=== PATIENT | female | born 1940 | race Caucasian/White ===

== ENCOUNTER → 2018-03-12 17:36 | Outpatient (CLI) | payer MEDICARE, OTHER, SELFPAY | PROVIDERS: Visit Provider Nurse Practitioner Adult Health | DX: R82.99 Other abnormal findings in urine (principal) | CPT/HCPCS: 87077; 87086; 87088; 87186 ==

== ENCOUNTER → 2018-09-17 07:58 | Outpatient (CLI) | payer MEDICARE, OTHER, SELFPAY ==
[2018-08-28 07:45] VITALS: BMI 24.8
--- NOTE | 2018-09-17 07:59 | ECHOCS_ITS ---
Reason For Study: Dyspnea/SOB Procedure This was a 2D Doppler, Color Flow transthoracic echocardiogram. Exam performed in department. Left Ventricle Normal size and thickness. The estimated ejection fraction is 65 %. Stage 1 diastolic dysfunction. No regional wall motion abnormalities noted. Right Ventricle Normal size and thickness. A moderator band is seen in the right ventricle. Normal systolic function. Atria Normal left atrium. Normal right atrium. Normal atrial septum. Mitral Valve The mitral valve is structurally normal. No prolapse or stenosis seen. Tricuspid Valve Normal tricuspid valve. Trivial tricuspid valve insufficiency. Right ventricular systolic pressure estimated to be 25 mmHg. Aortic Valve Trisinus/trileaflet aortic valve. Normal aortic valve. Pulmonic Valve Normal pulmonic valve. Mild (1+) pulmonic valve insufficiency. Great Vessels Normal aortic root. Normal arch. Normal inferior vena cava. Inferior vena cava collapse with sniff. Pericardium/Pleural No pericardial effusion. Medication 22 gauge I.V. with prn adaptor inserted into right arm. Diluted definity 3ml given slow IV push to enhance endocardial definition. MMode/2D Measurements & Calculations LVIDd: 4.2 cm IVSd: 0.74 cm Ao root diam: 3.1 cm LVIDs: 2.3 cm LVPWd: 0.71 cm LA dimension: 3.2 cm RVDd: 2.8 cm FS: 44.2 % LAV(MOD-bp): 33.9 ml LA A4 area: 14.7 cm2 RA A4 area: 10.5 cm2 LAV(MOD-bp) Indexed: 21.0 ml/m2 LAV(MOD-sp2): 29.0 ml LAV(MOD-sp4): 33.1 ml Time Measurements MV dec time: 0.27 sec Doppler Measurements & Calculations MV E max arun: 64.7 cm/sec Lat Peak E' Arun: 6.5 cm/sec Med Peak E' Arun: 9.0 cm/sec MV A max arun: 97.5 cm/sec E/E' lat: 10.0 E/E' med: 7.2 MV E/A: 0.66 MV V2 max: 113.2 cm/sec MV P1/2t max arun: 84.1 cm/sec Ao V2 max: 112.6 cm/sec MV max P.1 mmHg MV P1/2t: 84.4 msec Ao max P.1 mmHg MV V2 mean: 57.9 cm/sec MV dec slope: 291.9 cm/sec2 Ao V2 mean: 71.2 cm/sec MV mean P.6 mmHg Ao mean P.4 mmHg MV V2 VTI: 32.6 cm MVA(P1/2t): 2.6 cm2 Ao V2 VTI: 23.7 cm LV V1 max: 101.4 cm/sec PA V2 max: 78.0 cm/sec PI dec slope: 200.6 cm/sec2 LV V1 max P.1 mmHg LV V1 mean P.7 mmHg LV V1 mean: 60.0 cm/sec LV V1 VTI: 22.1 cm TR max arun: 221.7 cm/sec TR max P.7 mmHg Interpretation Summary The estimated ejection fraction is 65 %. Stage 1 diastolic dysfunction. Trivial tricuspid valve insufficiency. Right ventricular systolic pressure estimated to be 25 mmHg. Mild (1+) pulmonic valve insufficiency. Compared to echo report dated 03/13/2017, no appreciable changes noted. The study was technically difficult. Contrast injection was performed. Ordering Physician: Reji Bran Referring Physician: Emily Yun M.D. Performed By: Keenan Mckeon RCS
--- NOTE | 2018-09-17 12:26 | PFTCOMP ---
COMPLETE PULMONARY FUNCTION TEST INTERPRETATION Brief HPI: Patient is a 78 year old female, currently under the care of myself, who presents to [facility] for complete pulmonary function tests secondary to diagnosis of dyspnea. Respiratory therapist reports good effort and reproducible results. Interpretation: Forced expiration spirometry shows a mild large airways obstructive ventilatory defect with an FEV1 of 71% predicted. There is no significant bronchodilator response by strict ATS criteria. Spirograms are of good quality and plateau slowly, indicating slowly emptying areas of the lungs. The respiratory flow volume loop shows decreased expiratory flow rates at all lung volumes consistent with airway obstruction. Lung volumes by body plethysmography show a normal total lung capacity at 3.87 L, 89% predicted. All other lung volumes are within normal limits. Diffusion capacity by carbon monoxide is at the lower limit of normal at 64% predicted. The airway resistance is elevated. No previous pulmonary function tests were available for review. Impression: Irreversible mild large airways obstructive ventilatory defect with a symmetric reduction diffusing capacity consistent with a diagnosis of COPD. Lung volumes are relatively preserved despite history of lobectomy.
--- NOTE | 2018-09-17 12:29 | PFTCOMP_ITS ---
COMPLETE PULMONARY FUNCTION TEST INTERPRETATION Brief HPI: Patient is a 78 year old female, currently under the care of myself, who presents to [facility] for complete pulmonary function tests secondary to diagnosis of dyspnea. Respiratory therapist reports good effort and reproducible results. Interpretation: Forced expiration spirometry shows a mild large airways obstructive ventilatory defect with an FEV1 of 71% predicted. There is no significant bronchodilator response by strict ATS criteria. Spirograms are of good quality and plateau slowly, indicating slowly emptying areas of the lungs. The respiratory flow volume loop shows decreased expiratory flow rates at all lung volumes consistent with airway obstruction. Lung volumes by body plethysmography show a normal total lung capacity at 3.87 L, 89% predicted. All other lung volumes are within normal limits. Diffusion capacity by carbon monoxide is at the lower limit of normal at 64% predicted. The airway resistance is elevated. No previous pulmonary function tests were available for review. Impression: Irreversible mild large airways obstructive ventilatory defect with a symmetric reduction diffusing capacity consistent with a diagnosis of COPD. Lung volumes are relatively preserved despite history of lobectomy.
== END ==
PROVIDERS: Family Provider Internal Medicine; PCP Internal Medicine; Referring Provider Internal Medicine Critical Care Medicine; Visit Provider Internal Medicine Critical Care Medicine
DX: R06.00 Dyspnea, unspecified (principal); R06.02 Shortness of breath
CPT/HCPCS: 93306; 94060; 94726; 94729; Q9957; A4216; C8929

== ENCOUNTER → 2018-09-19 13:04 | Outpatient (CLI) | payer MEDICARE, OTHER, SELFPAY ==
[2018-08-28 07:45] VITALS: BMI 24.8
--- NOTE | 2018-09-19 13:06 | CT_ITS ---
STUDY: CT CHEST WITHOUT CONTRAST REASON FOR EXAM: Female, 78 years old. History of left upper lobectomy for lung cancer. Cough. RADIATION DOSAGE (If Supplied By Facility): CTDIvol = ( 9.72 ) mGy, DLP = ( 347.31 ) mGycm TECHNIQUE: Transaxial imaging was performed without the administration of intravenous contrast material. Individualized dose optimization techniques were used for this CT. COMPARISON: None. FINDINGS: There is mild loss of volume of the left lung consistent with previous lobectomy. There is mild stranding in the left lower lobe probably due to scarring. There there are calcified granulomas in the right upper and middle lobes. There is a 3 mm pleural-based nodule in the lingula on image 77 series 4. There is mild right apical stranding/scarring and pleural fibrotic changes. Mild bronchiectatic changes bilaterally are seen. There is no demonstrated pleural effusions. Normal heart and pericardium. There are calcifications of the coronary arteries. Normal mediastinum. Normal hilar regions. Normal unenhanced pulmonary arteries. There is atherosclerotic calcification of the aortic arch with tortuosity and elongation of the aortic arch and descending thoracic aorta. There is increased kyphosis of the thoracic spine and mild degenerative changes. The visualized portions of the upper abdomen demonstrate calcified granulomata in the spleen. There is probably small hiatal hernia. CT/Chest without Contrast IMPRESSION: 1. Status post left upper lobectomy. 2. Mild loss of volume and scarring in the left lung. 3. Residuals of old edematous disease. 4. No focal infiltrate is seen. 5. 3 mm noncalcified nodule in the lingula for which a follow-up exam in 6 months to a year is recommended due to patient's history of personal cancer. Electronically Signed: Lamont Bernal MD at 12:52 EST Tel , Service support ,
== END ==
PROVIDERS: Family Provider Internal Medicine; PCP Internal Medicine; Referring Provider Internal Medicine Critical Care Medicine; Visit Provider Internal Medicine Critical Care Medicine
DX: R06.00 Dyspnea, unspecified (principal); C7A.090 Malignant carcinoid tumor of the bronchus and lung; Z90.2 Acquired absence of lung [part of]
CPT/HCPCS: 71250

== ENCOUNTER → 2018-09-23 12:22 | Outpatient (CLI) | payer MEDICARE, OTHER, SELFPAY ==
[2018-09-23 10:16] VITALS: BMI 24.8
== END ==
PROVIDERS: Family Provider Internal Medicine; PCP Internal Medicine; Referring Provider Internal Medicine Critical Care Medicine; Visit Provider Internal Medicine Critical Care Medicine
DX: J47.9 Bronchiectasis, uncomplicated (principal)
CPT/HCPCS: 94667

== ENCOUNTER → 2019-03-12 11:49 | Outpatient (CLI) | payer MEDICARE, OTHER, SELFPAY ==
[2018-09-23 10:16] VITALS: BMI 24.8
== END ==
PROVIDERS: Family Provider Internal Medicine; PCP Internal Medicine
DX: N39.0 Urinary tract infection, site not specified (principal)
CPT/HCPCS: 87077; 87086; 87088; 87186

== ENCOUNTER → 2019-03-18 14:48 | Outpatient (CLI) | payer MEDICARE, OTHER, SELFPAY ==
[2018-09-23 10:16] VITALS: BMI 24.8
[2019-03-17 10:08] VITALS: BMI 24.3
--- NOTE | 2019-03-18 14:52 | CT_ITS ---
STUDY: CT ABDOMEN AND PELVIS WITH AND WITHOUT CONTRAST REASON FOR EXAM: Female, 78 years old. Microhematuria RADIATION DOSAGE (If Supplied By Facility): CTDIvol = ( 11.86 ) mGy, DLP = ( 1158.09 ) mGycm TECHNIQUE: Transaxial images were obtained from the dome of the diaphragm to the symphysis pubis without oral contrast. 100ML IV Isovue 300 was administered. Sagittal and coronal images were reconstructed. Individualized dose optimization techniques were used for this CT. COMPARISON: None. FINDINGS: The visualized lung bases are unremarkable. The visualized portions of the heart are within normal limits. There is decreased attenuation of the liver consistent with steatosis. Normal gallbladder and extrahepatic biliary system. Normal spleen. Normal pancreas. Normal bilateral adrenal glands. Normal right kidney. Normal left kidney. Normal visualized stomach. Normal small intestine. Retained stool noted in the colon. The appendix is visualized and appears normal. Appendix best seen on coronal recon images 48 and 49. There is diffuse atherosclerotic calcification of the abdominal aorta, without a demonstrated aneurysm. Normal inferior vena cava. Normal retroperitoneum. There is nonspecific bladder thickening with subtle enhancement suggesting cystitis. Uterus is still present, the endometrium cannot be accurately evaluated with CT. No suspicious cystic mass or free fluid Normal abdominal wall. There are diffuse degenerative changes of the visualized lumbar spine, and pelvis. CT/CT Abd/Pelvis W/WO Contrast IMPRESSION: Diffuse submucosal thickening of the bladder with enhancement of the bladder wall suggests cystitis. Consider cystoscopy for further evaluation Uterus is still present, the endometrium cannot be accurately evaluated with CT Fatty liver No free intraperitoneal fluid, air, or suspicious adenopathy Electronically Signed: Jonathan Sifuentes MD at 16:23 EDT , Service support ,
[2019-03-18 15:16] LABS: CREATININE FINGERSTICK 0.8 mg/dL (0.55-1.02); EGFR FINGERSTICK > 60.0000 mL/min (>60)
== END ==
PROVIDERS: Family Provider Internal Medicine; PCP Internal Medicine; Referring Provider Nurse Practitioner Adult Health; Visit Provider Nurse Practitioner Adult Health
DX: R31.29 Other microscopic hematuria (principal)
CPT/HCPCS: 74178; Q9967

== ENCOUNTER 2019-04-18 10:09 | Day surgery (SDC) | payer MEDICARE, OTHER, SELFPAY ==
[2019-03-17 10:08] VITALS: BMI 24.3
[2019-04-18] VITALS (12 sets, daily range): BP systolic 112–192; BP diastolic 48–91; PULSE 64–88; RESP 16–18; TEMP 36.1–37.4; O2SAT 95–100; BMI 24.4
[2019-04-18] MEDS: Lactated Ringers 1,000 ML 75 ML IV ×2 (10:46→13:41)
[2019-04-18 10:56] LABS: Bedside Glucose 194 mg/dL (70-110)
--- NOTE | 2019-04-18 12:00 | BLA_PTH ---
PATIENT: CHRISTINA IVORY LOC: [facility] [place] [facility] [place] U[place][id number] AGE/SX: 78/F ROOM: RE04/18/[address]: Dr. Piotr Aponte MD : [id number] BED: DIS: 04/18/2019 SPEC #: [id number] RECD: 04/18/19 13:43 STATUS: POLLO REQ #: [id number] JACQUELINE: 04/18/19 12:[address]: Piotr Aponte DEPT: SURGICAL PATHOLOGY RECD BY: Moiz Gong ENTERED: 04/18/19 13:58 SP TYPE: BLADDER BX OTHR DR: Dr. Emily Yun MD Tissues: Urinary bladder, NOS Procedures: Surgery Specimen Level IV HEADER OPERATION: Cystoscopy, bladder hydrodistention, bladder biopsy PRE-OP DIAGNOSIS: Interstitial cystitis TISSUE SUBMITTED: Bladder MICROSCOPIC DIAGNOSIS Urinary bladder, biopsy: Chronic follicular cystitis. AM:kary 04/21/19 MICROSCOPIC DESCRIPTION Slides are reviewed. GROSS DESCRIPTION Received in fixative is one container labeled with the patient's name and designated bladder. The specimen consists of one irregular fragment of light warren soft tissue that measures 0.2 x 0.1 x 0.1 cm. The specimen is totally submitted in one cassette. / SJ:kary 04/18/19 TC:3 CPT: 00560
[2019-04-18] MEDS: Cefazolin 2 GM in 0.9% Normal Saline 100 ML IV (12:09)
--- NOTE | 2019-04-18 12:25 | DCINST_ITS ---
Discharge Diet: Light diet - advance as tolerated Discharge Activity: Return to Normal Activity Call your doctor if your incision/area has: Continuous Slow Oozing, Sudden Increased Bleeding, Increased Pain/ Swelling, Increased Redness, Foul Smelling Discharge, Swelling at the incision site Allergies/Adverse Reactions: Allergies adhesive tape Allergy (Verified 04/18/19 10:21) Hives/Rash ciprofloxacin [From Cipro] Allergy (Verified 04/18/19 10:21) Photosensitivity & dermatitis pioglitazone [From Actos] Allergy (Verified 04/18/19 10:21) Unknown codeine Adverse Reaction (Verified 04/18/19 10:21) Upset Stomach ibandronate sodium [From Boniva] Adverse Reaction (Verified 04/18/19 10:21) GI upset/esophageal burning ibuprofen Adverse Reaction (Verified 04/18/19 10:21) GI upset Iodinated Contrast Media [CONTRASTS] Adverse Reaction (Verified 04/18/19 10:21) Vomiting iodine Adverse Reaction (Verified 04/18/19 10:21) Vomiting lansoprazole Adverse Reaction (Verified 04/18/19 10:21) Diarrhea metformin Adverse Reaction (Verified 04/18/19 10:21) Diarrhea miconazole [From Neosporin AF] Adverse Reaction (Verified 04/18/19 10:21) Rash/Blisters nabumetone [From Relafen] Adverse Reaction (Verified 04/18/19 10:21) GI upset pantoprazole [From Protonix] Adverse Reaction (Verified 04/18/19 10:21) Diarrhea sucralfate [From Carafate] Adverse Reaction (Verified 04/18/19 10:21) feels poorly Medications to take at Discharge Atorvastatin Calcium [Lipitor] 10 mg PO QHS 03/13/17 Capsaicin [Zostrix] 3 applic TP TID PRN 03/13/17 Cholecalciferol (VIT D3) [Vitamin D3] 1,000 unit PO DAILY 03/13/17 Esomeprazole Magnesium [Nexium 24Hr] 2 tab PO DAILY 03/13/17 Gabapentin [Neurontin] 300 mg PO BID 03/13/17 Glimepiride [Amaryl] 2 mg PO BID 03/13/17 Insulin Glargine,Hum.rec.anlog [Lantus] 24 unit SQ QHS 03/13/17 Metoprolol Succinate [Toprol Xl] 200 mg PO DAILY 03/13/17 Multivitamin [Multiple Vitamins] 1 ea PO DAILY 03/13/17 Sumatriptan Succinate [Imitrex] 50 mg PO .X1 PRN PRN 03/13/17 albuterol sulfate HFA 90 mcg/actuation aerosol inhaler 2 puff INHALATION Q6H PRN 08/28/18 codeine 10 mg-guaifenesin 100 mg/5 mL Syrup 5 ml PO TID PRN 08/28/18 lorazepam 1 mg tablet See Rx Instructions PO DAILY tab 08/28/18 phenazopyridine 200 mg tablet 200 mg PO TID PRN 08/28/18 sertraline 50 mg tablet 50 mg PO DAILY tab 08/28/18 sucralfate 1 gram tablet 1 g PO QACHS PRN 08/28/18 Hydrocodone/Acetaminophen [Hydrocodon-Acetaminophen 5-325] 1 ea PO PRN PRN 04/11/19 Insulin Aspart [Novolog Flexpen (BKC)] 8 units SUBCUT DAILY PRN 04/11/19 Pentosan Polysulfate Sodium [Elmiron] 100 mg PO BID 04/11/19 Hydrocodone/Acetaminophen [[place]field 5-325 Tablet] 1 ea PO Q4H PRN PRN #14 tab 04/18/19 Solifenacin Succinate [Vesicare] 10 mg PO DAILY #30 tab 04/18/19 The following prescriptions were given: Hydrocodone/Acetaminophen [[place]field 5-325 Tablet] 1 ea PO Q4H PRN PRN #14 tab PRN Reason: Pain Prescription Printed Solifenacin Succinate [Vesicare] 10 mg PO DAILY #30 tab Prescription Printed Primary Care Physician: Emily Yun MD [Primary Care Provider] - Test Results: Test results from this visit will be discussed in further detail at your follow- up appointment, if applicable. Please Follow Up With: Piotr Aponte MD When: in 2 weeks, please call to make an appointment.
[2019-04-18] MEDS: Heparin 10,000 UNITS/10 ML Vial 10000 UNITS OPERA.SITE (12:35)
[2019-04-18] MEDS: Dimethyl Sulfoxide 50 ML Solution TOPICAL (12:35)
[2019-04-18] MEDS: Sodium Bicarbonate 50 MEQ/50 ML Vial IRRIGATION (12:35)
[2019-04-18] MEDS: Hydrocortisone Sod Succinate 100 MG/2 ML Vial 150 MG IV (12:35)
--- NOTE | 2019-04-18 12:49 | OP.PCM_ITS ---
Report of Operation Date of Procedure: 04/18/19 Pre-Operative Diagnosis: Bladder pain, frequency urgency, interstitial cystitis. Post-Operative Diagnosis: The same Surgery/Procedure Performed:: Cystoscopy bladder biopsy and fulguration of biopsy site, hydrodistention of the bladder x2. Instillation of an IC medications. Description of Surgical Findings:: 78-year-old female was taken back to the operating room after smooth induction of anesthesia she was placed supine on the table in dorsolithotomy position, the urethra and vaginal area were prepped and draped in usual sterile fashion. Went into the bladder with a 21 Amharic rigid cystourethroscope using a 30 degree lens. The urethra was completely normal, the entire bladder there was reddish lesions throughout the bladder consistent with cystitis and a cystic a chronic. She also had this in the trigone area. Left and right ureter orifice were normal. No papillary tumors were seen in the bladder. Some mild erythema in the bladder as well. I did a random sample biopsy in the back of the bladder and is reddish lesions just to rule out carcinoma. This biopsy site we used a flexible biopsy forceps to grab the mucosa and take a specimen the specimen was then put on the Telfa and handed off to the nurse in formalin. I then used a Bugbee electrode to go through the cystoscope and cauterize the biopsy site with a Bugbee electrode 30 on coag in the setting after cauterizing the biopsy site there was no more bleeding from this. We then performed the first hydrodistention. I made sure the bag is about 80 cm above the bladder. It filled the bladder up to maximum capacity we waited 5 minutes and then drained the bladder she only had about a capacity of 500 cc I then did a second distention again filled the bladder up to maximum capacity under direct visualization and after 5 minutes of distention she only had about 550 cc. She did have a very small bladder capacity under anesthesia. She did have the typical glomerulations throughout the bladder with bladder emptying consistent with interstitial cystitis. I then placed the catheter in the bladder and placed cocktail medications of heparin, DMSO, lidocaine, prednisone, into the bladder after the medications were placed in the bladder remove the catheter will leave this in there to cool the bladder with the medications and the patient's anesthetic was reversed taken back to PACU good condition she will f ollow-up in the office in a few weeks after treatment of her bladder. Type of Anesthesia:: General Drains: none - Admit VTE Documentation VTE Present on Admission: No VTE Mechan Device Prophylaxis: SCD's
[2019-04-18 14:01] LABS: Bedside Glucose 129 mg/dL (70-110)
[2019-04-18 16:15] LABS: Bedside Glucose 276 mg/dL (70-110)
--- NOTE | 2019-04-18 17:46 | SUR.PHASEII ---
STRAIGHT CATH FOR APPROX 275 ML BLOODY URINE.
[2019-04-18] MEDS: HYDROcodone Bitartrate/Apap 5/325 Tablet PO (17:48)
== END 2019-04-18 17:56 | disposition home or self-care (01) ==
LOC: SDC 10:09 → AC 10:11
PROVIDERS: Family Provider Internal Medicine; PCP Internal Medicine; Referring Provider Urology; Visit Provider Urology
PROC: 0T7B7ZZ Dilation of Bladder, Via Natural or Artificial Opening (ICD-10-PCS; CPT 51720; principal; 2019-04-18 11:50)
DX: N30.10 Interstitial cystitis (chronic) without hematuria (principal); K21.9 Gastro-esophageal reflux disease without esophagitis; E78.00 Pure hypercholesterolemia, unspecified; E11.9 Type 2 diabetes mellitus without complications; Z87.440 Personal history of urinary (tract) infections
CPT/HCPCS: 51720; 52260; 82962; 88305; J7120; J1212; J2405

== ENCOUNTER → 2019-09-16 10:05 | Outpatient (CLI) | payer MEDICARE, OTHER, SELFPAY ==
[2019-03-17 10:08] VITALS: BMI 24.3
[2019-04-18 10:30] VITALS: BMI 24.4
--- NOTE | 2019-09-16 14:44 | PFTCOMP ---
COMPLETE PULMONARY FUNCTION TEST INTERPRETATION Brief HPI: Patient is a 80 year old female, currently under the care of myself, who presents to [facility] for complete pulmonary function tests secondary to diagnosis of bronchiectasis. Respiratory therapist reports good effort and reproducible results. Interpretation: Forced expiration spirometry shows a mild large airways obstructive ventilatory defect with an FEV1 of 74% predicted. There is no significant bronchodilator response by strict ATS criteria. Spirograms are of good quality and plateau slowly, indicating slowly emptying areas of the lungs. The respiratory flow volume loop shows decreased expiratory flow rates at all lung volumes consistent with airway obstruction. Diffusion capacity by carbon monoxide is decreased at 62% predicted. The airway resistance is normal. Compared to previous pulmonary function tests from 09/17/2018, there has been no significant change. Impression: Irreversible mild large airways obstructive ventilatory defect with a symmetric reduction diffusion capacity
== END ==
PROVIDERS: Family Provider Internal Medicine; PCP Internal Medicine; Referring Provider Nurse Practitioner Acute Care; Visit Provider Nurse Practitioner Acute Care
DX: J47.9 Bronchiectasis, uncomplicated (principal)
CPT/HCPCS: 94060; 94726; 94729

== ENCOUNTER 2020-01-01 11:44 | Inpatient (IN) | payer MEDICARE, OTHER, SELFPAY ==
[2019-09-23 06:08] VITALS: BMI 25.6
[2020-01-01] VITALS (16 sets, daily range): BP systolic 94–156; BP diastolic 65–90; PULSE 61–72; RESP 13–18; TEMP 36.3–36.8; O2SAT 93–100; BMI 24.1; BMI 24.7; BMI 24.3; BMI 24.8
--- NOTE | 2020-01-01 12:07 | ED.VIS.STROK ---
History of Present Illness Chief Complaint: Neuro S/Sx Informant: Patient Onset: Yesterday Narrative: Patient presents the emergency department for the evaluation of right-sided weakness and decreased sensation. She states that yesterday morning she got up around 6:30 in the morning and sat on the side of the bed and stated to herself that she felt pretty good. However when she went to the bathroom to brush her teeth the toothbrush hit her nose. She began to notice that she had decreased sensation on the right face arm and leg. She noted inability to control the arm as well as weakness. When she was in the shower she had difficulty standing and had to hold on. She had a backache she feels is related to putting together a puzzle so she went to the chiropractor yesterday afternoon. Her told her he thinks she had a stroke so she came to the emergency department today. She is not on any blood thinners. She notes a mild headache. No history of A. fib. Past Medical History - Allergies and Home Meds Allergies/Adverse Reactions: Allergies adhesive tape Allergy (Verified 09/23/19 09:44) Hives/Rash ciprofloxacin [From Cipro] Allergy (Verified 09/23/19 09:44) Photosensitivity & dermatitis pioglitazone [From Actos] Allergy (Verified 09/23/19 09:44) Unknown codeine Adverse Reaction (Verified 09/23/19 09:44) Upset Stomach ibandronate sodium [From Boniva] Adverse Reaction (Verified 09/23/19 09:44) GI upset/esophageal burning ibuprofen Adverse Reaction (Verified 09/23/19 09:44) GI upset Iodinated Contrast Media [CONTRASTS] Adverse Reaction (Verified 09/23/19 09:44) Vomiting iodine Adverse Reaction (Verified 09/23/19 09:44) Vomiting lansoprazole Adverse Reaction (Verified 09/23/19 09:44) Diarrhea metformin Adverse Reaction (Verified 09/23/19 09:44) Diarrhea miconazole [From Neosporin AF] Adverse Reaction (Verified 09/23/19 09:44) Rash/Blisters nabumetone [From Relafen] Adverse Reaction (Verified 09/23/19 09:44) GI upset pantoprazole [From Protonix] Adverse Reaction (Verified 09/23/19 09:44) Diarrhea sucralfate [From Carafate] Adverse Reaction (Verified 09/23/19 09:44) feels poorly Primary Care Physician: Emily Yun MD [Primary Care Provider] - Smoking Status: Never smoker - Family History Paternal Family History: Family History (Last Reviewed 09/23/19 @ 09:45 by Simran Vargas) Father Lung cancer Colon cancer Mother Mesothelioma Hypertension Grandmother Heart disease Family History: Reports: Heart Disease Review of Systems General: Denies: Chills, Fever, Sweats Eyes: Denies: Visual changes - bilaterally, Diplopia ENT: Denies: Rhinorrhea, Sore throat Cardiovascular: Denies: Chest pain, Palpitations Respiratory: Denies: Dyspnea, Cough, Dyspnea on exertion Gastrointestinal: Denies: Abdominal pain, Nausea, Vomiting, Diarrhea, Melena, Hematochezia Genitourinary: Denies: Dysuria, Hematuria, Frequency Musculoskeletal: Denies: Back pain, Extremity Pain Skin: Denies: Rash, Wounds Neurological: Reports: Headache, Weakness, Parasthesia, Numbness STROKE Vital Signs/Narrative: Vital Signs Temp Pulse Resp BP Pulse Ox 01/01/20 11:45 97.6 F L 72 16 148/90 H 98 Inital Vital Signs reviewed: Yes - NIHSS Initial 1a Level of Consciousness: 0 1b LOC Questions (Score 2 if aphasic/stupor): 0 1c LOC Commands (Only score 1st attempt): 0 2 Best Gaze (If aphasic, use reflexive mvmts.): 0 3 Visual: 0 4 Facial Palsy: 0 5 Motor Arm Right (UN = amputation/fusion): 1 5 Motor Arm Left: 0 6 Motor Leg Right: 2 6 Motor Leg Left: 0 7 Limb ataxia (Only + if out of proportion): 2 8 Sensory (Aphasia/stupor=0 or 1, coma=2): 1 9 Best Language: 0 10 Dysarthria (mute, coma=2, intubated=UN): 0 11 Extinction and Inattention (only scored if +): 0 Total Score: 6 General: Well nourished, Well developed Head: Normocephalic, Atraumatic Eyes: Perrl, EOMI ENT: Moist mucous membranes, No rhinorrhea Neck: Supple, Nontender Cardiovascular: Regular rate, Regular rhythm, No murmurs Respiratory: No distress, CTA bilaterally, Chest nontender Abdomen: Soft, Nontender, Nondistended, Normal bowel sounds Back: Nontender, Normal Inspection Extremities: Nontender, No edema Skin: Normal color, No rash Neurological: Alert, Oriented x3 Psychological: Normal affect Diagnostic/Tx/Re-eval Clinical Impression(s) from Imaging Studies Brain CT 01/01/20 12:12 IMPRESSION: Chronic involutional changes of the brain. Electronically Signed: Mireya Lynette, at 13:18 EDT Tel , Service support , Chest X-Ray 01/01/20 12:12 IMPRESSION: Degenerative changes, as described above. No demonstrated acute cardiopulmonary process. Electronically Signed: Mireya Ojeda, at 13:17 EDT Tel , Service support , Head/Neck CTA 01/01/20 13:30 IMPRESSION: 1. There is moderate calcified atherosclerotic plaque formation of the origin of the right internal carotid artery with an estimated stenosis of 50-69% stenosis. 2. Essentially normal left carotid arteries with exception of a tiny focus of plaque. 3. There is no demonstrated aneurysm of the [place]. No demonstrated occlusion or intraluminal thrombus in the major arteries. No hemodynamically significant stenosis is present. Electronically Signed: Steve Ruvalcaba MD at 14:25 EDT , Service support , Laboratory Last Values WBC 7.2 K/mm3 (4.4-11.0) 01/01/20 12:34 RBC 4.36 M/mm3 (4.2-5.4) 01/01/20 12:34 Hgb 13.5 g/dL (12.0-15.0) 01/01/20 12:34 Hct 40.0 % (37-47) 01/01/20 12:34 MCV 91.7 fL (81-99) 01/01/20 12:34 MCH 31.0 pg (27.0-32.0) 01/01/20 12:34 MCHC 33.8 g/dL (32-36) 01/01/20 12:34 RDW Std Deviation 42.1 fl (35.1-43.9) 01/01/20 12:34 RDW Coeff of Win 12.8 % (11.6-14.6) 01/01/20 12:34 Plt Count 251 K/mm3 (150-450) 01/01/20 12:34 MPV 9.9 fl (6.2-12.0) 01/01/20 12:34 Immature Gran % (Auto) 0.100 % (0.0-0.9) 01/01/20 12:34 Neut % (Auto) 62.3 % (47-70) 01/01/20 12:34 Lymph % (Auto) 27.0 % (19-41) 01/01/20 12:34 [place] % (Auto) 7.4 % (0-10) 01/01/20 12:34 Eos % (Auto) 2.8 % (0-5) 01/01/20 12:34 Baso % (Auto) 0.4 % (0-1) 01/01/20 12:34 Absolute Neuts (auto) 4.5 X10^3/uL (2.0-7.7) 01/01/20 12:34 Absolute Lymphs (auto) 1.94 X10^3/uL (0.83-4.51) 01/01/20 12:34 Nucleated RBC % 0 % (0-5) 01/01/20 12:34 PT 13.3 SECONDS (11.7-14.9) 01/01/20 12:34 INR 1.1 01/01/20 12:34 APTT 29.1 Seconds (24.1-36.2) 01/01/20 12:34 Sodium 139 mmol/L (136-145) 01/01/20 12:34 Potassium 3.8 mmol/L (3.5-5.1) 01/01/20 12:34 Chloride 106 mmol/L (98-107) 01/01/20 12:34 Carbon Dioxide 28.0 mmol/L (21.0-32.0) 01/01/20 12:34 Anion Gap 5 (5-15) 01/01/20 12:34 BUN 12 mg/dL (7-18) 01/01/20 12:34 Creatinine 0.72 mg/dL (0.55-1.02) 01/01/20 12:34 Estim Creat Clear Calc 37.26 ml/min 01/01/20 12:34 Est GFR (MDRD) Af Amer 102 mL/min (>60) 01/01/20 12:34 Est GFR (MDRD) Non-Af 84 mL/min (>60) 01/01/20 12:34 BUN/Creatinine Ratio 16.8 RATIO (10-20) 01/01/20 12:34 Glucose 226 mg/dL (74-106) H 01/01/20 12:34 Calcium 8.8 mg/dL (8.5-10.1) 01/01/20 12:34 Troponin I < 0.015 ng/mL (<0.045) 01/01/20 12:34 POC Glucose 222 mg/dL (70-110) H 01/01/20 12:27 - EKG Initial EKG Interpretation: Sinus Rhythm - EKG demonstrates a normal sinus rhythm at a rate of 63 without ectopy or concerning features of ACS - Medical Decision Making Stroke Team Activated: No - Greater than 24 hours Reviewed Inclusion/Exclusion criteria: Yes Was Patient considered for Endovascular Intervention?: No IV Alteplase (t-PA) Administered: No No contraindications for IV Alteplase (t-PA) administration.: No Alteplase (t-PA) risks, benefits, alternative discussed: No Not given: Patient refusal: No Patient with NIH of 6. Symptoms are greater than 24 hours therefore she is not a TPA or interventional candidate. Plan is admission into the hospital. Critical care time (excluding procedures): 30-74 minutes - 35 min ED Disposition - Plan for ED Patient: Disposition: Acute Care Hospital [facility] Diagnosis: Acute ischemic stroke, DM2 (diabetes mellitus, type 2), Essential (primary) hypertension Referrals: Emily Ynu MD [Primary Care Provider] -
--- NOTE | 2020-01-01 12:12 | CT_ITS ---
STUDY: CT BRAIN WITHOUT CONTRAST REASON FOR EXAM: Female, 79 years old. RT SIDE FACIAL, UPPER/LOWER EXTREMITY NUMBNESS, TINGLING, WEAKNESS X 2 DAYS RADIATION DOSAGE (If Supplied By Facility): CTDIvol = ( 44.99 ) mGy, DLP = ( 779.24 ) mGycm TECHNIQUE: Transaxial CT imaging of the brain was performed without administration of intravenous contrast material. Individualized dose optimization techniques were used for this CT. COMPARISON: No relevant priors. FINDINGS: Normal soft tissue structures. Normal calvarium. Normal size ventricles and extra-axial spaces for the patient''s age. There are areas of decreased attenuation within the white matter tracts of the supratentorial brain, consistent with microvascular disease changes. Normal basal ganglia and thalami. Normal brainstem. Normal cerebellum. There is no intracranial hemorrhage. There are no findings of an acute ischemic infarction. Normal visualized paranasal sinuses. CT/Brain/Head without Contrast IMPRESSION: Chronic involutional changes of the brain. Electronically Signed: Mireya Oejda, at 13:18 EDT Tel , Service support ,
--- NOTE | 2020-01-01 12:12 | EKG12_ITS ---
Test Reason : Blood Pressure : / mmHG Vent. Rate : 063 BPM Atrial Rate : 063 BPM P-R Int : 182 ms QRS Dur : 094 ms QT Int : 448 ms P-R-T Axes : 059 -13 043 degrees QTc Int : 458 ms Normal sinus rhythm Minimal voltage criteria for LVH, may be normal variant Borderline ECG Confirmed by RONDA SEPULVEDA, SIDDHARTHA ([id number]), business editor FUENTES ASTUDILLO ([id number]) on 01/06/2020 2:05:17 PM Referred By: JESUS Confirmed By:SIDDHARTHA BOND MD
--- NOTE | 2020-01-01 12:12 | RAD_ITS ---
STUDY: X-RAY CHEST REASON FOR EXAM: Female, 79 years old. facial numbness, upper and lower extremity numbness started yesterday TECHNIQUE: Single AP portable view of the chest. COMPARISON: None. FINDINGS: There is subsegmental atelectasis in the left lung base. There is no demonstrated pleural abnormality. Normal size heart. Normal mediastinum and loree. Normal visualized pulmonary arteries. Normal visualized aortic arch and descending thoracic aorta. There is a mild levoscoliosis of the thoracic spine. There is degenerative osteoarthritis of the bilateral shoulders. There is no demonstrated abnormality of the visualized soft tissue structures of the upper abdomen. RAD/Chest 1 View IMPRESSION: Degenerative changes, as described above. No demonstrated acute cardiopulmonary process. Electronically Signed: Mireya Ojeda, at 13:17 EDT Tel , Service support ,
[2020-01-01] MEDS: Ondansetron 4 MG/2 ML Vial IV (12:29)
[2020-01-01 12:45] LABS: Bedside Glucose 222 mg/dL (70-110)
[2020-01-01 12:47] LABS: Absolute Lymphocyte Count 1.94 X10^3/uL (0.83-4.51); Absolute Neutrophil Count 4.5 X10^3/uL (2.0-7.7); Basophil# 0.03 X10^3/uL; Basophil% 0.4 % (0-1); Eosinophils% 2.8 % (0-5); Hemoglobin 13.5 g/dL (12.0-15.0); Lymphocyte # 1.94 X10^3/ul (4.0); Mean Corp Hgb Conc 33.8 g/dL (32-36); Mean Corpuscular Volume 91.7 fL (81-99); Mean Platelet Vol. 9.9 fl (6.2-12.0); Monocyte# 0.53 X10^3/uL; Monocyte% 7.4 % (0-10); NRBC Flagged by Analyzer 0 % (0-5); Neutrophil # 4.48 X10^3/uL (2.7-7.7); Neutrophil % 62.3 % (47-70); Platelet Count 251 K/mm3 (150-450); RBC Distribution Width CV 12.8 % (11.6-14.6); RBC Distribution Width SD 42.1 fl (35.1-43.9); Red Blood Count 4.36 M/mm3 (4.2-5.4); White Blood Count 7.2 K/mm3 (4.4-11.0)
[2020-01-01 12:55] LABS: International Normalized Ratio 1.1; Partial Thromboplast Time 29.1 Seconds (24.1-36.2); Prothrombin Time (Protime)PT. 13.3 SECONDS (11.7-14.9)
[2020-01-01 13:02] LABS: Anion Gap 5 (5-15); BUN 12 mg/dL (7-18); BUN/Creat Ratio 16.8 RATIO (10-20); Calcium,Total 8.8 mg/dL (8.5-10.1); Chloride 106 mmol/L (98-107); Creatinine, Serum 0.72 mg/dL (0.55-1.02); EST Glomerular Filtration Rate 84 mL/min (>60); Est Glom Filt Rate - Afr Amer 102 mL/min (>60); Estimated Creatinine Clearance 37.26 ml/min; Glucose 226 mg/dL (74-106); Potassium 3.8 mmol/L (3.5-5.1); Sodium Level 139 mmol/L (136-145)
--- NOTE | 2020-01-01 13:30 | CT_ITS ---
STUDY: CTA HEAD AND NECK WITH CONTRAST REASON FOR EXAM: Female, 79 years old. RT SIDE FACIAL, UPPER/LOWER EXTREMITY NUMBNESS, TINGLING, WEAKNESS X 2 DAYS RADIATION DOSAGE (If Supplied By Facility): CTDIvol = ( 22.54 ) mGy, DLP = ( 636.98 ) mGycm TECHNIQUE: CT angiography was performed with a multi-detector CT scanner. Data acquisition was obtained from the skull base through the vertex following intravenous administration of 100ML ISOVUE 370. MIP images were reconstructed from the axial data set. Post-processing of the angiographic images was performed, with multiplanar reformation and 3D reconstruction. Individualized dose optimization techniques were used for this CT. COMPARISON: Noncontrast head CT dated January 01, 2020 FINDINGS: Normal bilateral petrous carotid arteries. There is calcified plaque formation of the right cavernous carotid artery, without a cross-sectional luminal stenosis. There is calcified plaque formation of the left cavernous carotid artery, without a cross-sectional luminal stenosis. Normal right A1 segments of the anterior cerebral artery. Normal left A1 segments of the anterior cerebral artery. Normal intact anterior communicating artery (ACOM). Normal bilateral A2 segments of the anterior cerebral arteries. Normal right M1 and M2 segments of the middle cerebral arteries, with a normal M1 bifurcation. Normal left M1 and M2 segments of the middle cerebral arteries, with a normal M1 bifurcation. There is a persistent origin of the right posterior cerebral artery with absence of the posterior communicating artery (PCOM). There is a persistent origin of the left posterior cerebral artery with absence of the posterior communicating artery (PCOM). Normal bilateral vertebral arteries. Normal basilar artery with a normal basilar bifurcation. The visualized bilateral superior cerebellar (SCA) arteries are normal. Normal bilateral P1, P2 and visualized P3 segments of the posterior cerebral arteries. There is no demonstrated aneurysm of the [place]. No demonstrated occlusion or intraluminal thrombus in the major arteries. No hemodynamically significant stenosis is present. AORTIC ARCH: Normal visualized aortic arch, normal type 4 variant. Normal origins of the brachiocephalic, left common carotid, and left subclavian arteries. RIGHT CAROTID ARTERIES: Normal right common carotid artery (CCA). Normal right common carotid bulb. There is moderate calcified atherosclerotic plaque formation of the origin of the right internal carotid artery with an estimated stenosis of 50-69% stenosis. Normal visualized cervical portion of the right internal carotid artery. Normal origin of the right external carotid artery (ECA). LEFT CAROTID ARTERIES: Normal left common carotid artery (CCA). There is mild atherosclerotic plaque formation with minimal narrowing of the left carotid bulb. Normal origin of the left internal carotid (ICA) artery without a hemodynamically significant stenosis. Normal visualized cervical portion of the left internal carotid artery. Normal origin of the left external carotid artery (ECA). VERTEBRAL ARTERIES: Normal bilateral vertebral arteries. CT/CTA Head AND Neck W/ Contrast IMPRESSION: 1. There is moderate calcified atherosclerotic plaque formation of the origin of the right internal carotid artery with an estimated stenosis of 50-69% stenosis. 2. Essentially normal left carotid arteries with exception of a tiny focus of plaque. 3. There is no demonstrated aneurysm of the [place]. No demonstrated occlusion or intraluminal thrombus in the major arteries. No hemodynamically significant stenosis is present. Electronically Signed: Steve Ruvalcaba MD at 14:25 EDT , Service support ,
--- NOTE | 2020-01-01 15:19 | PCM.HP.STD ---
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 (5) Accelerated essential hypertension Status: Acute (6) Essential (primary) hypertension Status: Chronic (7) DM2 (diabetes mellitus, type 2) Status: Chronic Qualifiers: Diabetes mellitus salvage determiner insulin use: with half-way use Diabetes mellitus complication status: without complication Qualified Code(s): E11.9 - Type 2 diabetes mellitus without complications; Z79.4 - terminal manager (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 History of Present Illness Date of Admission: 01/01/20 Chief Complaint: Numbness tingling of right side and incoordination of right hand The patient is a 79 year old F with history of hypertension and diabetes mellitus type 2 came to ED with incoordination of right hand while she was trying to brush the tooth, first noticed yesterday morning, last known well more than 36 hours before admission. Patient also noticed tingling sensation right side of face and right side of the body but no major weakness, speech abnormalities/dysarthria/dysphagia or aphasia. No visual field abnormality or loss of consciousness. In ED, vital signs are stable, BP elevated but permissive hypertension range. CT brain shows chronic involutional changes of the brain. Head and neck CTA shows moderate calcified atherosclerotic plaque at origin of R ICA 50 to 69%. Patient had left lobectomy for carcinoid bronchial adenoma of left lung and bronchiectasis. She is a non-smoker. [] Past Medical History Past Medical History (Chronic Problems): Chronic Problems (Last Reviewed 09/23/19 @ 09:45 by Simran Vargas) Bronchiectasis (Chronic) Essential (primary) hypertension (Chronic) DM2 (diabetes mellitus, type 2) (Chronic) Medical History: Medical History (Last Reviewed 09/23/19 @ 09:45 by Simran Vargas) Accelerated essential hypertension (Acute) I10 Essential (primary) hypertension (Chronic) I10 DM2 (diabetes mellitus, type 2) (Chronic) E11.9 Acute chest pain (Acute) R07.9 Acute gastritis K29.00 C. 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 Allergies adhesive tape Allergy (Verified 09/23/19 09:44) Hives/Rash ciprofloxacin [From Cipro] Allergy (Verified 09/23/19 09:44) Photosensitivity & dermatitis pioglitazone [From Actos] Allergy (Verified 09/23/19 09:44) Unknown codeine Adverse Reaction (Verified 09/23/19 09:44) Upset Stomach ibandronate sodium [From Boniva] Adverse Reaction (Verified 09/23/19 09:44) GI upset/esophageal burning ibuprofen Adverse Reaction (Verified 09/23/19 09:44) GI upset Iodinated Contrast Media [CONTRASTS] Adverse Reaction (Verified 09/23/19 09:44) Vomiting iodine Adverse Reaction (Verified 09/23/19 09:44) Vomiting lansoprazole Adverse Reaction (Verified 09/23/19 09:44) Diarrhea metformin Adverse Reaction (Verified 09/23/19 09:44) Diarrhea miconazole [From Neosporin AF] Adverse Reaction (Verified 09/23/19 09:44) Rash/Blisters nabumetone [From Relafen] Adverse Reaction (Verified 09/23/19 09:44) GI upset pantoprazole [From Protonix] Adverse Reaction (Verified 09/23/19 09:44) Diarrhea sucralfate [From Carafate] Adverse Reaction (Verified 09/23/19 09:44) feels poorly Home Medications: Ambulatory Orders Medication Instructions Recorded Atorvastatin Calcium [Lipitor] 10 mg PO QHS 03/13/17 Cholecalciferol (VIT D3) [Vitamin 1,000 unit PO DAILY 03/13/17 D3] Gabapentin [Neurontin] 300 mg PO BID 03/13/17 Glimepiride [Amaryl] 2 mg PO BID 03/13/17 Insulin Glargine,Hum.rec.anlog 24 unit SQ QHS 03/13/17 [Lantus] Metoprolol Succinate [Toprol Xl] 200 mg PO DAILY 03/13/17 Multivitamin [Multiple Vitamins] 1 ea PO DAILY 03/13/17 Sumatriptan Succinate [Imitrex] 50 mg PO .X1 PRN PRN 03/13/17 lorazepam 1 mg tablet 0.5 mg PO DAILY tab 08/28/18 sertraline 50 mg tablet 50 mg PO DAILY tab 08/28/18 Insulin Aspart [Novolog Flexpen 8 units SUBCUT DAILY PRN 04/11/19 ([facility])] Codeine Phosphate/Guaifenesin 5 ml PO Q6H PRN PRN 01/01/20 [Virtussin AC 10-100 mg/5 ml Lq] Esomeprazole Magnesium 40 mg PO DAILY 01/01/20 Mirabegron [Myrbetriq] 50 mg PO BID 01/01/20 Surgical History: Surgical History (Last Reviewed 09/23/19 @ 09:45 by Simran Vargas) H/O endoscopy Z98.890 11/01/09 Barretts esophagus History of lung biopsy Z98.890 05/01/09, Aniket Barnett Hx of cataract surgery Z98.49 S/P lobectomy of lung Z90.2 left upper S/P rotator cuff repair Z98.890 12/21/03 Spinal injections 05/05/08, 06/16/08 nerve block Smoking Status: Never smoker - *Family History Paternal Family History: Family History (Last Reviewed 09/23/19 @ 09:45 by Simran Vargas) Father Lung cancer Colon cancer Mother Mesothelioma Hypertension Grandmother Heart disease History Items: Heart Disease Review of Systems Constitutional: Denies: Chills, Fever, Weight Change HEENT: Denies: Head Aches, Sinus Congestion, Sinus Drainage Cardiovascular: Denies: Chest Pain, Palpitations Respiratory: Denies: Cough, Shortness of breath at rest, Sputum production Gastrointestinal: Denies: Abdominal Pain, Nausea, Vomiting Genitourinary: Denies: Dysuria Musculoskeletal: Denies: Joint Pain, Joint Tenderness Skin: Denies: Rash, Wounds Neurological: Reports: Incoordination. Denies: Blurred vision, Double vision, Change in Speech, Slurred speech, Confusion, Difficulty swallowing, Focal weakness, Numbness, Tingling Psychiatric: Denies: Anxiety, Depression, Homicidal Ideations, Suicidal Ideations Hematologic/ Lymphatic: Denies: Easy Bruising, Easy Bleeding VTE Information - Inpt Only VTE Present on Admission: No VTE Mechan Device Prophylaxis: None VTE Pharm Prophylaxis ordered?: Yes Patient Problems: Active and Suspected Problems (Last Reviewed 09/23/19 @ 09:45 by Simran Vargas) Acute ischemic stroke (Acute) - Physical Exam Vitals/I&O's: Vital Signs Temp Pulse Resp BP Pulse Ox 98.0 F 69 17 156/76 H 98 01/01/20 15:12 01/01/20 15:12 01/01/20 15:12 01/01/20 15:12 01/01/20 15:12 Oxygen Delivery Method Room Air Weight: 135 lb 9.349 oz Body Mass Index (BMI) 24.7 Finger Stick Blood Glucose 222 General: Alert, Oriented x3, Cooperative HEENT: Atraumatic, PERRLA, EOMI, Normocephalic Neck: Supple, No JVD, Negative Carotid Bruits Lungs: No rhonchi, No rales, Diminished - Air entry diminished in the left upper lung. No rhonchi or crepitation Cardiovascular: Regular rate, Regular Rhythm, Normal S1, Normal S2, No murmurs Abdomen: Bowel Sounds Present, Soft, Non Tender, Non-Distended Extremities: Capillary Refill Less than 3 Seconds, Edema - Mild edema Skin: No rashes, No breakdown Musculoskeletal: No Tenderness to Palpation of Joints or Extremities Neurological: Cranial nerves II-XII grossly intact, - - NIH stroke scale 3, 1 for mild to moderate sensory loss right side and 2 for limb ataxia. Initial and NIH stroke scale noted 5 by nursing staff including drift in right arm drift and right leg which is resolved now Psych/Mental Status: Normal Affect, Appropriate Laboratory Results 01/01/20 12:27: POC Glucose 222 H 01/01/20 12:34: WBC 7.2, RBC 4.36, Hgb 13.5, Hct 40.0, MCV 91.7, MCH 31.0, MCHC 33.8, RDW Std Deviation 42.1, RDW Coeff of Win 12.8, Plt Count 251, MPV 9.9, Immature Gran % (Auto) 0.100, Neut % (Auto) 62.3, Lymph % (Auto) 27.0, [place] % (Auto) 7.4, Eos % (Auto) 2.8, Baso % (Auto) 0.4, Absolute Neuts (auto) 4.5, Absolute Lymphs (auto) 1.94, Nucleated RBC % 0 01/01/20 12:34: PT 13.3, INR 1.1, APTT 29.1 01/01/20 12:34: Sodium 139, Potassium 3.8, Chloride 106, Carbon Dioxide 28.0, Anion Gap 5, BUN 12, Creatinine 0.72, Estim Creat Clear Calc 37.26, Est GFR (MDRD) Af Amer 102, Est GFR (MDRD) Non-Af 84, BUN/Creatinine Ratio 16.8, Glucose 226 H, Calcium 8.8, Troponin I < 0.015 Current Medications Labetalol HCl (Trandate) 20 mg IV X1 PRN PRN Reason: BLOOD PRESSURE Assessment/Plan All Active Problems (Last Reviewed 09/23/19 @ 09:45 by Simran Vargas) Acute ischemic stroke (Acute) S/P lobectomy of lung (Resolved) Carcinoid bronchial adenoma of left lung (Resolved) Accelerated essential hypertension (Acute) Acute chest pain (Acute) he patient is a 79 year old F with history of hypertension and diabetes mellitus type 2 came to ED with incoordination of right hand while she was trying to brush the tooth, first noticed yesterday morning, last known well more than [address] brain shows chronic involutional changes of the brain. Head and neck CTA shows moderate calcified atherosclerotic plaque at origin of CELESTE 50 to 69%. 1. Acute ischemic stroke: Patient is not a candidate for TPA because out of time window; more than 36 hours, last known well. The patient is being admitted in PCU. Troponin is negative. EKG normal sinus rhythm with LVH, LAD. QTc 458 ms. Glucose 226 in BMP. MRI brain and 2D echo ordered. BP and glucose control as per stroke guidelines. Will get telemetry neurology consult once work-up is done. Aspirin and statin. PT OT and speech and swallow evaluation and therapy as indicated. As per the daughter whom I talked in ER, she had perhaps TIA in 2017 with mild slurred speech. 2. Diabetes mellitus type 2: A1c tomorrow a.m. Accu-Chek before meals and at bedtime and cover with Humalog sliding scale. 3. Hypertension: will keep the blood pressure in permissive hypertension range in the next 24 hours 4. 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 Bran. Patient is non-smoker. 5. Chronic migraine: Patient is on sumatriptan as needed. Currently no headache. DVT prophylaxis: On Lovenox 40 mg subcu daily. Clinical Impression(s) from Imaging Studies Brain CT 01/01/20 12:12 IMPRESSION: Chronic involutional changes of the brain. Chest X-Ray 01/01/20 12:12 IMPRESSION: Degenerative changes, as described above. No demonstrated acute cardiopulmonary process. Head/Neck CTA 01/01/20 13:30 IMPRESSION: 1. There is moderate calcified atherosclerotic plaque formation of the origin of the right internal carotid artery with an estimated stenosis of 50-69% stenosis. 2. Essentially normal left carotid arteries with exception of a tiny focus of plaque. 3. There is no demonstrated aneurysm of the lum[place] of [place]. No demonstrated occlusion or intraluminal thrombus in the major arteries. No hemodynamically significant stenosis is present. Inpatient E&M: 42273 Init Hosp L3
--- NOTE | 2020-01-01 15:46 | ECHOD_ITS ---
Reason For Study: TIA/CVA Procedure This was a 2D Doppler, Color Flow transthoracic echocardiogram. Exam performed portable in patient room. Left Ventricle Normal LV size. Left ventricular systolic function is normal. The estimated ejection fraction is 60 %. Stage 1 diastolic dysfunction. No regional wall motion abnormalities noted. Right Ventricle Normal RV size. Normal systolic function. Atria Normal left atrium. Normal right atrium. Mitral Valve Normal mitral valve. Tricuspid Valve Normal tricuspid valve. Mild tricuspid valve insufficiency. Pulmonary artery systolic pressure is 28 mmHg. Aortic Valve Trisinus/trileaflet aortic valve. Pulmonic Valve Normal pulmonic valve. Great Vessels Normal aortic root. Pericardium/Pleural No pericardial effusion. MMode/2D Measurements & Calculations LVIDd: 4.1 cm IVSd: 1.1 cm Ao root diam: 2.9 cm LVIDs: 2.3 cm LVPWd: 1.1 cm RVDd: 2.9 cm FS: 44.7 % LAV(MOD-bp): 43.5 ml LA A4 area: 16.2 cm2 LA dimension(2D): 3.3 cm LAV(MOD-bp) Indexed: 26.9 ml/m2 LAV(MOD-sp2): 43.0 ml LAV(MOD-sp4): 43.4 ml RA A4 area: 14.1 cm2 Time Measurements MV dec time: 0.31 sec Doppler Measurements & Calculations MV E max arun: 77.7 cm/sec Lat Peak E' Arun: 6.5 cm/sec Med Peak E' Arun: 6.7 cm/sec MV A max arun: 93.9 cm/sec E/E' lat: 12.0 E/E' med: 11.7 MV E/A: 0.83 Ao V2 max: 129.3 cm/sec LV V1 max: 103.0 cm/sec PA V2 max: 82.7 cm/sec Ao max P.7 mmHg LV V1 max P.2 mmHg TR max arun: 243.9 cm/sec TR max P.9 mmHg Interpretation Summary Normal LV size. Left ventricular systolic function is normal. The estimated ejection fraction is 60 %. Pulmonary artery systolic pressure is 28 mmHg. Stage 1 diastolic dysfunction. Ordering Physician: Brenden Riec Referring Physician: Emily Yun Performed By: Shasta Coughlin, MARIA LUISA, RVT
--- NOTE | 2020-01-01 15:46 | MRI_ITS ---
STUDY: MRI BRAIN WITHOUT CONTRAST REASON FOR EXAM: Female, 79 years old. R facial, arm and leg numbness TECHNIQUE: Standardized multiplanar fat and water weighted pulse sequences were obtained. COMPARISON: Head CT dated January 01, 2020 FINDINGS: There is mild cerebral atrophy with widening of the extra-axial spaces and ventricular dilatation. There are multiple confluent white matter hyperintensities, distributed throughout the deep white matter tracts of the cerebral hemispheres, consistent with severe chronic white matter ischemic changes. There is no evidence for recent intracranial ischemia or other cause of cytotoxic edema on diffusion weighted imaging (DWI). Normal T2* images of the brain without demonstrated susceptibility artifact. There is no demonstrated hemosiderin stain. A small lacunar infarct is seen in the anterior limb of the left internal capsule. Normal bilateral basal ganglia. Normal thalami. There is no extra-axial fluid accumulation. Normal flow voids within the major intracranial circulation suggesting patency by spin echo criteria. Normal sella turcica, pituitary gland, infundibular stalk, optic chiasm and hypothalamus. Normal tectal plate and pineal gland. Normal midbrain, han and medulla. Normal cerebellum. Normal basal cisterns. Normal bilateral temporal bones. Normal bilateral internal auditory canals. No demonstrated orbital abnormality, within the constraints of a routine brain study. Normal visualized paranasal sinuses. Normal calvarium and skull base. Normal visualized soft tissue structures. Normal visualized upper cervical spine. MRI/Brain without Contrast IMPRESSION: 1. Extensive chronic ischemic and mild involutional changes of the brain, as described above. Electronically Signed: Steve Ruvalcaba MD at 19:13 EDT , Service support ,
[2020-01-01] MEDS: 0.9% Normal Saline 1,000 ML 75 ML IV (16:02)
[2020-01-01] MEDS: Enoxaparin 40 MG/0.4 ML Syringe SC (16:53)
[2020-01-01 16:54] LABS: AST(SGOT) 13 U/L (15-37); Alanine Aminotransfer ALT/SGPT 19 U/L (13-56); Albumin, Serum 3.5 g/dL (3.2-5.0); Alkaline Phosphatase 93 U/L (45-117); Bilirubin, Direct 0.06 mg/dL (0.00-0.30); Globulin 3.8 g/dL (2.2-4.2); Protein, Total 7.3 g/dL (6.4-8.2)
[2020-01-01] MEDS: Aspirin 81 MG TAB.CHEW PO (16:54)
[2020-01-01] MEDS: Insulin Lispro 100 UNIT/ML INSULN.PEN SC ×2 (16:54→21:07)
[2020-01-01] MEDS: LORazepam 2 MG/ML Syringe 1 MG IV (16:57)
[2020-01-01 17:20] LABS: Bedside Glucose 224 mg/dL (70-110)
[2020-01-01] MEDS: Mirabegron 50 MG TAB.ER.24H PO (21:06)
[2020-01-01] MEDS: Atorvastatin Calcium 80 MG Tablet PO (21:06)
[2020-01-01] MEDS: Gabapentin 300 MG Capsule PO (21:07)
[2020-01-01 22:11] LABS: Bedside Glucose 198 mg/dL (70-110)
[2020-01-02] VITALS (12 sets, daily range): BP systolic 128–164; BP diastolic 62–85; PULSE 60–72; RESP 14–18; TEMP 36.4–36.8; O2SAT 94–99; BMI 24.3
[2020-01-02 07:51] LABS: Cholesterol 170 mg/dL (200); High Density Lipoprotein 43 mg/dL; Thyroid Stim Hormone (TSH) 3.83 uIU/mL (0.358-3.74); Triglycerides 203 mg/dL; Very Low Density Lipoprotein 41 mg/dL (5-40)
[2020-01-02 08:05] LABS: Bedside Glucose 137 mg/dL (70-110)
[2020-01-02 08:07] LABS: Hemoglobin A1c 7.4 % (3.8-5.6)
[2020-01-02] MEDS: Metoprolol(XL)Succ 200 MG Tablet PO (09:06)
[2020-01-02] MEDS: Pantoprazole Sodium 40 MG Tablet PO (09:07)
[2020-01-02] MEDS: Gabapentin 300 MG Capsule PO ×2 (09:07→21:12)
[2020-01-02] MEDS: Multivitamins,Therapeutic Tablet 1 TABLET PO (09:07)
[2020-01-02] MEDS: Sertraline 50 MG Tablet PO (09:07)
[2020-01-02] MEDS: LORazepam 0.5 MG Tablet PO (09:07)
[2020-01-02] MEDS: Mirabegron 50 MG TAB.ER.24H PO ×2 (09:07→21:11)
[2020-01-02] MEDS: Aspirin 81 MG TAB.CHEW PO (09:07)
[2020-01-02] MEDS: Enoxaparin 40 MG/0.4 ML Syringe SC (09:07)
[2020-01-02] MEDS: Insulin Lispro 100 UNIT/ML INSULN.PEN SC ×3 (10:46→21:12)
[2020-01-02 11:16] LABS: Bedside Glucose 228 mg/dL (70-110)
--- NOTE | 2020-01-02 11:41 | MRI_ITS ---
STUDY: MRA NECK WITH AND WITHOUT CONTRAST REASON FOR EXAM: Female, 79 years old. carotid stenosis, F/U ABNORMAL CTA NECK TECHNIQUE: 3-D [id number] (TOF) imaging was performed in an 1.5 T MRI scanner. IV DOTAREM 12CC was administered for the contrast enhanced images. COMPARISON: CTA of the neck dated January 01, 2020 FINDINGS: RIGHT CAROTID ARTERIES: Normal right common carotid artery (CCA). Normal right common carotid bulb. There is moderate atherosclerotic plaque formation of the origin of the right internal carotid artery with an estimated short focal segment stenosis of 50-69% stenosis, see images 81/134 series #4 and images 50/ series [id number]. Normal visualized cervical portion of the right internal carotid artery. Normal origin of the right external carotid artery (ECA). LEFT CAROTID ARTERIES: Normal left common carotid artery (CCA). Normal left common carotid bulb. Normal origin of the left internal carotid (ICA) artery without a hemodynamically significant stenosis. Normal visualized cervical portion of the left internal carotid artery. Normal origin of the left external carotid artery (ECA). VERTEBRAL ARTERIES: There is antegrade flow within the bilateral vertebral arteries with a small right vertebral artery, and a dominant left vertebral artery. MRI/MRA Neck WITH and W/O Contrast IMPRESSION: 1. Normal right common carotid bulb. There is moderate atherosclerotic plaque formation of the origin of the right internal carotid artery with an estimated short focal segment stenosis of 50-69% stenosis, see images 81/134 series #4 and images 50/81 series [id number]. Electronically Signed: Steve Ruvalcaba MD at 16:20 EDT , Service support ,
--- NOTE | 2020-01-02 12:30 | PCM.PROGNOTE ---
<Simran Ibarra - Last Filed: 01/02/20 12:38> Patient Problems: Active and Suspected Problems (Last Reviewed 09/23/19 @ 09:45 by Simran Vargas) Acute ischemic stroke (Acute) Subjective: Patient seen and examined. Continues to have right arm ataxia, unsteady gait and right lower extremity sensory deficits. Would like to return home at discharge, not agreeable to rehab at this time. [facility] neurology recommending MRA of neck due to abnormal CTA. - Physical Exam Vitals/I&O's: Vital Signs Temp Pulse Resp BP Pulse Ox 97.6 F L 65 18 164/79 H 99 01/02/20 09:06 01/02/20 11:11 01/02/20 09:06 01/02/20 09:06 01/02/20 09:06 Oxygen Delivery Method Room Air Weight: 132 lb 11.492 oz Body Mass Index (BMI) 24.3 Finger Stick Blood Glucose 222 Intake and Output for Last 24 Hours 12/31/19 01/01/20 01/02/20 23:59 23:59 23:59 Intake Total 60 / 300 1300 / 1300 Output Total 100 / 100 Balance 60 / 300 1200 / 1200 General: Alert, Oriented x3, Cooperative HEENT: Atraumatic, PERRLA, EOMI, Normocephalic Neck: Supple, No JVD, Negative Carotid Bruits Lungs: Clear to auscultation, Normal air movement Cardiovascular: Regular rate, Regular Rhythm, Normal S1, Normal S2, No murmurs Abdomen: Bowel Sounds Present, Soft, Non Tender, Non-Distended Extremities: No clubbing, No cyanosis, No edema, Capillary Refill Less than 3 Seconds Skin: No rashes, No breakdown Musculoskeletal: No Tenderness to Palpation of Joints or Extremities Neurological: Cranial nerves II-XII grossly intact, - - Right upper extremity ataxia, right lower extremity mild sensory deficit. Psych/Mental Status: Normal Affect, Appropriate Laboratory Results 01/01/20 12:27: POC Glucose 222 H 01/01/20 12:34: WBC 7.2, RBC 4.36, Hgb 13.5, Hct 40.0, MCV 91.7, MCH 31.0, MCHC 33.8, RDW Std Deviation 42.1, RDW Coeff of Win 12.8, Plt Count 251, MPV 9.9, Immature Gran % (Auto) 0.100, Neut % (Auto) 62.3, Lymph % (Auto) 27.0, [place] % (Auto) 7.4, Eos % (Auto) 2.8, Baso % (Auto) 0.4, Absolute Neuts (auto) 4.5, Absolute Lymphs (auto) 1.94, Nucleated RBC % 0 01/01/20 12:34: PT 13.3, INR 1.1, APTT 29.1 01/01/20 12:34: Sodium 139, Potassium 3.8, Chloride 106, Carbon Dioxide 28.0, Anion Gap 5, BUN 12, Creatinine 0.72, Estim Creat Clear Calc 37.26, Est GFR (MDRD) Af Amer 102, Est GFR (MDRD) Non-Af 84, BUN/Creatinine Ratio 16.8, Glucose 226 H, Calcium 8.8, Troponin I < 0.015 01/01/20 16:20: Total Bilirubin 0.30, Direct Bilirubin 0.06, AST 13 L, ALT 19, Alkaline Phosphatase 93, Troponin I < 0.015, Total Protein 7.3, Albumin 3.5, Globulin 3.8 01/01/20 16:50: POC Glucose 224 H 01/01/20 21:04: POC Glucose 198 H 01/02/20 06:06: Triglycerides 203 H, Cholesterol 170, LDL Cholesterol 86, VLDL Cholesterol 41 H, HDL Cholesterol 43, TSH 3.83 H 01/02/20 06:06: Hemoglobin A1c 7.4 H 01/02/20 07:48: POC Glucose 137 H 01/02/20 10:44: POC Glucose 228 H Current Medications Acetaminophen (Tylenol) 650 mg PO Q6H PRN PRN PRN Reason: Pain Score 1-10/Temp > 100.7 F Aspirin (Aspirin, Baby) 81 mg PO DAILY@0800 [facility] Last Admin: 01/02/20 09:07 Dose: 81 mg Documented by: Atorvastatin Calcium (Lipitor) 80 mg PO QHS [facility] Last Admin: 01/01/20 21:06 Dose: 80 mg Documented by: Cholecalciferol (Vitamin D (25mcg)) 1,000 unit PO DAILY [facility] Last Admin: 01/02/20 09:07 Dose: 1,000 unit Documented by: Dextrose (D50w Syringe) 0 gm IV X1 PRN; Protocol PRN Reason: Hypoglycemia Enoxaparin Sodium (Lovenox) 40 mg SC DAILY [facility] Last Admin: 01/02/20 09:07 Dose: 40 mg Documented by: Gabapentin (Neurontin) 300 mg PO BID [facility] Last Admin: 01/02/20 09:07 Dose: 300 mg Documented by: Glucagon () 1 mg IM .X1 PRN PRN Reason: Hypoglycemia Hydralazine HCl (Apresoline Iv) 5 mg IV Q30M PRN PRN Reason: to maintain BP goals Sodium Chloride () 250 mls @ 15 mls/hr IV .[id number] PRN PRN Reason: Saline Flush Sodium Chloride () 250 mls @ 15 mls/hr IV .[id number] PRN PRN Reason: Additional IVPB Infusion Insulin Glargine (Lantus ([facility])) 24 units SC QHS [facility] Last Admin: 01/01/20 21:06 Dose: 24 units Documented by: Insulin Human Lispro (Humalog Kwikpen ([facility])) 0 unit SC ACHS [facility]; Protocol Last Admin: 01/02/20 10:46 Dose: 4 units Documented by: Labetalol HCl (Trandate) 20 mg IV X1 PRN PRN Reason: BLOOD PRESSURE Labetalol HCl (Trandate) 10 - 20 mg IV Q10M PRN PRN PRN Reason: to maintain BP goals Lorazepam (Ativan) 0.5 mg PO DAILY [facility] Last Admin: 01/02/20 09:07 Dose: 0.5 mg Documented by: Lorazepam (Ativan) 1 mg IV X1 PRN PRN Reason: anxiety for MRI Last Admin: 01/01/20 16:57 Dose: 1 mg Documented by: Metoprolol Succinate (Toprol Xl (Beta Chetan)) 200 mg PO DAILY [facility] Last Admin: 01/02/20 09:06 Dose: 200 mg Documented by: Mirabegron (Myrbetriq) 50 mg PO BID [facility] Last Admin: 01/02/20 09:07 Dose: 50 mg Documented by: Morphine Sulfate () 2 mg IV Q3H PRN PRN PRN Reason: Pain Score 6-10/10 Multivitamins (Multivitamin) 1 tablet PO DAILY@0800 [facility] Last Admin: 01/02/20 09:07 Dose: 1 tablet Documented by: Nitroglycerin (Nitrostat) 0.4 mg SUBLINGUAL Q5M PRN PRN Reason: CARDIAC/CHEST PAIN Pantoprazole Sodium (Protonix) 40 mg PO DAILY [facility] Last Admin: 01/02/20 09:07 Dose: 40 mg Documented by: Prochlorperazine Edisylate (Compazine Iv) 5 mg IV Q4H PRN PRN PRN Reason: Breakthrough Nausea/Vomiting Rizatriptan Benzoate (Maxalt) 10 mg PO .X1 PRN PRN PRN Reason: MIGRAINE SYMPTOMS Senna/Docusate Sodium (Senokot-S, Jennifer-Colace) 2 tablet PO BID PRN PRN PRN Reason: Constipation Sertraline HCl (Zoloft) 50 mg PO DAILY [facility] Last Admin: 01/02/20 09:07 Dose: 50 mg Documented by: Sodium Chloride () 10 - 40 ml IV UD PRN PRN Reason: SALINE FLUSH Medical Necessity - Tobacco Use Smoking Status: Never smoker Assessment/Plan All Active Problems (Last Reviewed 09/23/19 @ 09:45 by Simran Vargas) Acute ischemic stroke (Acute) S/P lobectomy of lung (Resolved) Carcinoid bronchial adenoma of left lung (Resolved) Accelerated essential hypertension (Acute) Acute chest pain (Acute) 1. Possible small left CVA-MRI negative for acute infarct however given right upper extremity ataxia and right hemisensory deficit and unsteady gait, neurology suspects possible new left small CVA. MRI of brain did demonstrate small lacunar infarct. CTA showed right ICA with 50 to 69% stenosis. Recommended checking MRA to confirm stenosis. Check UA. Echocardiogram demonstrates an EF of 60%, stage I diastolic dysfunction. Aspirin, statin. PT/OT/ST. Per PT, patient requiring assistance with ambulation due to gait ataxia. She is not agreeable to rehab at this time. Will reassess PT again tomorrow prior to discharge home to ensure safety. 2. Type 2 diabetes [id number] with sliding scale insulin. Hemoglobin A1c 7.4%. 3. Hypertension-stable, continue metoprolol regimen. 4. Hyperlipidemia-home statin regimen increased. 5. 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 Bran. 6. Chronic migraines-on PRN sumatriptan. 7. Depression/anxiety-continue sertraline. On PRN lorazepam. DVT prophylaxis- Lovenox sc Discharge planning: Anticipate discharge home tomorrow following repeat PT assessment. This patient was seen by SHERRY Ford under the supervision of Dr. Rice. <Brenden Rice - Last Filed: 01/02/20 13:51> Subjective: Seen and examined. Patient continues to have right arm dysmetria/ataxia, unsteady gait and right-sided mild to moderate sensory loss. MRI brain and CTA reviewed. - Physical Exam Vitals/I&O's: Vital Signs Temp Pulse Resp BP Pulse Ox 97.6 F L 65 18 164/79 H 99 01/02/20 09:06 01/02/20 11:11 01/02/20 09:06 01/02/20 09:06 01/02/20 09:06 Oxygen Delivery Method Room Air Weight: 132 lb 11.492 oz Body Mass Index (BMI) 24.3 Finger Stick Blood Glucose 222 Intake and Output for Last 24 Hours 12/31/19 01/01/20 01/02/20 23:59 23:59 23:59 Intake Total 60 / 300 1300 / 1300 Output Total 100 / 100 Balance 60 / 300 1200 / 1200 General: Alert, Oriented x3, Cooperative HEENT: Atraumatic, PERRLA, EOMI, Normocephalic Neck: Supple, No JVD, Negative Carotid Bruits Lungs: Clear to auscultation, Normal air movement, No rhonchi, No wheeze, No rales Cardiovascular: Regular rate, No murmurs Abdomen: Bowel Sounds Present, Soft, Non Tender, Non-Distended Extremities: No edema, Capillary Refill Less than 3 Seconds Skin: No rashes, No breakdown Musculoskeletal: No Tenderness to Palpation of Joints or Extremities, Arthritic Changes Neurological: Cranial nerves II-XII grossly intact, - - Right upper extremity ataxia, right lower extremity mild sensory deficit. Right upper extremity dysmetria or ataxia, mild left upper extremity dysmetria. Mild right lower extremity sensory deficit, total NIH stroke scale 3. Psych/Mental Status: Normal Affect, Appropriate Laboratory Results 01/01/20 16:20: Total Bilirubin 0.30, Direct Bilirubin 0.06, AST 13 L, ALT 19, Alkaline Phosphatase 93, Troponin I < 0.015, Total Protein 7.3, Albumin 3.5, Globulin 3.8 05/21/20 16:50: POC Glucose 224 H 01/01/20 21:04: POC Glucose 198 H 01/02/20 06:06: Triglycerides 203 H, Cholesterol 170, LDL Cholesterol 86, VLDL Cholesterol 41 H, HDL Cholesterol 43, TSH 3.83 H 01/02/20 06:06: Hemoglobin A1c 7.4 H 01/02/20 07:48: POC Glucose 137 H 01/02/20 10:44: POC Glucose 228 H 01/02/20 13:20: Urine Color Yellow, Urine Clarity Clear, Urine pH 6.5, Ur Specific [place] 1.010, Urine Protein Negative, Urine Glucose (UA) 50 H, Urine Ketones Negative, Urine Occult Blood 10 H, Urine Nitrite Negative, Urine Bilirubin Negative, Urine Urobilinogen Normal, Ur Leukocyte Esterase Negative, Urine RBC Pending, Urine WBC Pending, Ur Squamous Epith Cells Pending, Urine Bacteria Pending, Urine Mucus Pending Current Medications Acetaminophen (Tylenol) 650 mg PO Q6H PRN PRN PRN Reason: Pain Score 1-10/Temp > 100.7 F Aspirin (Aspirin, Baby) 81 mg PO DAILY@0800 [facility] Last Admin: 01/02/20 09:07 Dose: 81 mg Documented by: Atorvastatin Calcium (Lipitor) 80 mg PO QHS [facility] Last Admin: 01/01/20 21:06 Dose: 80 mg Documented by: Cholecalciferol (Vitamin D (25mcg)) 1,000 unit PO DAILY [facility] Last Admin: 01/02/20 09:07 Dose: 1,000 unit Documented by: Dextrose (D50w Syringe) 0 gm IV X1 PRN; Protocol PRN Reason: Hypoglycemia Enoxaparin Sodium (Lovenox) 40 mg SC DAILY [facility] Last Admin: 01/02/20 09:07 Dose: 40 mg Documented by: Gabapentin (Neurontin) 300 mg PO BID [facility] Last Admin: 01/02/20 09:07 Dose: 300 mg Documented by: Glucagon () 1 mg IM .X1 PRN PRN Reason: Hypoglycemia Hydralazine HCl (Apresoline Iv) 5 mg IV Q30M PRN PRN Reason: to maintain BP goals Sodium Chloride () 250 mls @ 15 mls/hr IV .[id number] PRN PRN Reason: Saline Flush Sodium Chloride () 250 mls @ 15 mls/hr IV .[id number] PRN PRN Reason: Additional IVPB Infusion Insulin Glargine (Lantus (Bk)) 24 units SC QHS [facility] Last Admin: 01/01/20 21:06 Dose: 24 units Documented by: Insulin Human Lispro (Humalog Kwikpen ([facility])) 0 unit SC ACHS [facility]; Protocol Last Admin: 01/02/20 10:46 Dose: 4 units Documented by: Labetalol HCl (Trandate) 20 mg IV X1 PRN PRN Reason: BLOOD PRESSURE Labetalol HCl (Trandate) 10 - 20 mg IV Q10M PRN PRN PRN Reason: to maintain BP goals Lorazepam (Ativan) 0.5 mg PO DAILY [facility] Last Admin: 01/02/20 09:07 Dose: 0.5 mg Documented by: Lorazepam (Ativan) 1 mg IV X1 PRN PRN Reason: anxiety for MRI Last Admin: 01/01/20 16:57 Dose: 1 mg Documented by: Metoprolol Succinate (Toprol Xl (Beta Chetna)) 200 mg PO DAILY [facility] Last Admin: 01/02/20 09:06 Dose: 200 mg Documented by: Mirabegron (Myrbetriq) 50 mg PO BID [facility] Last Admin: 01/02/20 09:07 Dose: 50 mg Documented by: Morphine Sulfate () 2 mg IV Q3H PRN PRN PRN Reason: Pain Score 6-10/10 Multivitamins (Multivitamin) 1 tablet PO DAILY@0800 [facility] Last Admin: 01/02/20 09:07 Dose: 1 tablet Documented by: Nitroglycerin (Nitrostat) 0.4 mg SUBLINGUAL Q5M PRN PRN Reason: CARDIAC/CHEST PAIN Pantoprazole Sodium (Protonix) 40 mg PO DAILY [facility] Last Admin: 01/02/20 09:07 Dose: 40 mg Documented by: Prochlorperazine Edisylate (Compazine Iv) 5 mg IV Q4H PRN PRN PRN Reason: Breakthrough Nausea/Vomiting Rizatriptan Benzoate (Maxalt) 10 mg PO .X1 PRN PRN PRN Reason: MIGRAINE SYMPTOMS Senna/Docusate Sodium (Senokot-S, Jennifer-Colace) 2 tablet PO BID PRN PRN PRN Reason: Constipation Sertraline HCl (Zoloft) 50 mg PO DAILY [facility] Last Admin: 01/02/20 09:07 Dose: 50 mg Documented by: Sodium Chloride () 10 - 40 ml IV UD PRN PRN Reason: SALINE FLUSH Assessment/Plan This patient was seen in conjunction with Simran ALVAREZ. I have independently interviewed and examined the patient and reviewed pertinent history, examination findings, laboratory and plan of management. I have reviewed the note and agree with the documented findings with the few additional points. In brief, patient is admitted for possible small left sided CVA. MRI brain is negative for acute infarct but reported small lacunar infarct in the anterior limb of left internal capsule. Clinically she has findings of acute infarct. R ICA 50 to 69% stenosis as per CTA neck. MRA neck ordered by neurologist. Extensive chronic small vessel white matter disease. UA with reflex urine culture. Fasting profile, total cholesterol 203, LDL 86, HDL 43. Lipitor increased to 20 mg daily. Type 2 diabetes mellitus: A1c 7.4 suggestive of good control. Hypertension: Permissive hypertension range. Metoprolol continued gradually control of blood pressure systolic less than 130 mmHg. 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 I have discussed my assessment with Simran ALVAREZ and orders have been reviewed. Inpatient E&M: 06726 Subs Hosp L2
--- NOTE | 2020-01-02 13:30 | NURSING ---
Called granddaughter to update on patient status at this time.
[2020-01-02 13:31] LABS: Bacteria 0 SEEN /hpf (None Seen); Mucous, Urine 0 SEEN /hpf (<or=2+)
[2020-01-02 13:33] LABS: Color, Urine Yellow (Yellow); Glucose, Dipstick 50 mg/dl (Normal); Ketone-Dipstick Negative (Negative); Leukocyte Esterase-Dipstick Negative /ul (Negative); Nitrite-Dipstick Negative (Negative); Occult Blood-Urine 10 /ul (Negative); Protein-Dipstick Negative (Negative); Urine Bilirubin Dipstick Negative (Negative); Urine Clarity Clear (Clear); Urine Urobilinogen Normal (Normal); Urine pH 6.5 (5.0 - 8.0)
--- NOTE | 2020-01-02 13:43 | CASEMGMT ---
PHQ9 completed with pt due to possible stroke. Pt stating that she does not sleep well and this has been a life long problem. Over the last few days she feels she has had some concentration issues. Pt denies any feelings of depression. SW education pt on depression signs and encouraged pt to reach out to PCP should she start feeling down. Pt expresses understanding. ALEXANDRIA Aguillon
--- NOTE | 2020-01-02 13:47 | CASEMGMT ---
Social Work Assessment: SW met with pt and introduced self and role of SW. Pt awake, sitting in bed, A&Ox4 and agreeable to assessment. Demographics, pharmacy and PCP confirmed. Specialists include Dr. Bran and Dr. Don. Pt lives at home with her spouse in a one story home with two steps in. Prior to hosptialization pt was independent with all ADLs and IADLs. Pt spouse is retired and is able to assist pt as needed and provide transportation. Pt states she has children and grandchildren that live locally and are able to assist as needed. Pt does have a shower chair but no other DME. Pt will require wheeled walker at time of discharge. Pt does have a Health Care POA on file naming her Josr and pt states she does have a Living will and was notified that it was not on file. Pt has had home diana SN in the past through [facility]. At this time pt would like to return home with outpatient therapy and would prefer [facility] which she has used previously. TAPAN Jimenez notified of d/c needs. Plan: Home with spouse and outpatient PT/OT with [facility] and wheeled walker ALEXANDRIA Aguillon
[2020-01-02 13:54] LABS: Red Blood Cells-Urine 0-5 SEEN /hpf (0-5); Squamous Epithelial Cells - UA 0-5 SEEN /hpf (5-10); White Blood Cells 0-5 SEEN /hpf (0-5)
[2020-01-02] MEDS: LORazepam 2 MG/ML Syringe 1 MG IV (14:37)
[2020-01-02] MEDS: 0.9% Saline Lock 10 ML Syringe IV (14:37)
--- NOTE | 2020-01-02 16:01 | NURSING ---
[facility]SA late d/t patient being off floor for testing
[2020-01-02 16:21] LABS: Bedside Glucose 190 mg/dL (70-110)
--- NOTE | 2020-01-02 16:35 | CASEMGMT ---
WW referral sent to [facility] and delivered to pt bedside for discharge tomorrow. Pt also provided with script for OP PT/OT per pt request to go to [facility]. Pt voices no further questions/concerns/needs at this time. Thai BRYANT CM
[2020-01-02] MEDS: MELATONIN 10 MG TABLET PO (21:11)
[2020-01-02] MEDS: Atorvastatin Calcium 80 MG Tablet PO (21:11)
[2020-01-02 22:31] LABS: Bedside Glucose 192 mg/dL (70-110)
[2020-01-03] MEDS: 0.9% Saline Lock 10 ML Syringe IV (02:14)
[2020-01-03] MEDS: proCHLORPERazine 10 MG/2 ML Vial 5 MG IV (02:14)
[2020-01-03 02:25] VITALS: BP 154/73; PULSE 63; RESP 18; TEMP 36.6; O2SAT 97
[2020-01-03 02:57] VITALS: PULSE 60
[2020-01-03 06:34] VITALS: O2SAT 95
[2020-01-03] MEDS: Insulin Lispro 100 UNIT/ML INSULN.PEN SC ×2 (06:38→11:19)
[2020-01-03 06:51] LABS: Bedside Glucose 167 mg/dL (70-110)
[2020-01-03 08:25] VITALS: BP 132/77; PULSE 64; RESP 16; TEMP 36.7; O2SAT 98
[2020-01-03] MEDS: Aspirin 81 MG TAB.CHEW PO (09:05)
[2020-01-03] MEDS: Enoxaparin 40 MG/0.4 ML Syringe SC (09:06)
[2020-01-03] MEDS: Mirabegron 50 MG TAB.ER.24H PO (09:06)
[2020-01-03] MEDS: Pantoprazole Sodium 40 MG Tablet PO (09:06)
[2020-01-03] MEDS: Multivitamins,Therapeutic Tablet 1 TABLET PO (09:06)
[2020-01-03] MEDS: Gabapentin 300 MG Capsule PO (09:06)
[2020-01-03 09:08] VITALS: BP 132/77; PULSE 64
[2020-01-03] MEDS: Metoprolol(XL)Succ 200 MG Tablet PO (09:08)
[2020-01-03] MEDS: LORazepam 0.5 MG Tablet PO (09:08)
[2020-01-03] MEDS: Sertraline 50 MG Tablet PO (09:09)
--- NOTE | 2020-01-03 11:29 | PCM.DC ---
- Discharge Diagnoses Current Active Problems: Current Active and Chronic Problems (Last Reviewed 09/23/19 @ 09:45 by Simran Vargas) 1. 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 Type 2 diabetes mellitus 3. Hypertension 4. Hyperlipidemia 5. 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 Chronic migraines 7. Depression/anxiety You will use the following diet at home:: Cardiac Discharge Activity: Return to Normal Activity Call your doctor if you observe: Shortness of breath, Dizziness, Fainting spells, Chest pain Allergies/Adverse Reactions: Allergies adhesive tape Allergy (Verified 09/23/19 09:44) Hives/Rash ciprofloxacin [From Cipro] Allergy (Verified 09/23/19 09:44) Photosensitivity & dermatitis pioglitazone [From Actos] Allergy (Verified 09/23/19 09:44) Unknown codeine Adverse Reaction (Verified 09/23/19 09:44) Upset Stomach ibandronate sodium [From Boniva] Adverse Reaction (Verified 09/23/19 09:44) GI upset/esophageal burning ibuprofen Adverse Reaction (Verified 09/23/19 09:44) GI upset Iodinated Contrast Media [CONTRASTS] Adverse Reaction (Verified 09/23/19 09:44) Vomiting iodine Adverse Reaction (Verified 09/23/19 09:44) Vomiting lansoprazole Adverse Reaction (Verified 09/23/19 09:44) Diarrhea metformin Adverse Reaction (Verified 09/23/19 09:44) Diarrhea miconazole [From Neosporin AF] Adverse Reaction (Verified 09/23/19 09:44) Rash/Blisters nabumetone [From Relafen] Adverse Reaction (Verified 09/23/19 09:44) GI upset pantoprazole [From Protonix] Adverse Reaction (Verified 09/23/19 09:44) Diarrhea sucralfate [From Carafate] Adverse Reaction (Verified 09/23/19 09:44) feels poorly Medications to take at Discharge Cholecalciferol (VIT D3) [Vitamin D3] 1,000 unit PO DAILY 03/13/17 Gabapentin [Neurontin] 300 mg PO BID 03/13/17 Glimepiride [Amaryl] 2 mg PO BID 03/13/17 Insulin Glargine,Hum.rec.anlog [Lantus] 24 unit SQ QHS 03/13/17 Metoprolol Succinate [Toprol Xl] 200 mg PO DAILY 03/13/17 Multivitamin [Multiple Vitamins] 1 ea PO DAILY 03/13/17 Sumatriptan Succinate [Imitrex] 50 mg PO .X1 PRN PRN 03/13/17 lorazepam 1 mg tablet 0.5 mg PO DAILY tab 08/28/18 sertraline 50 mg tablet 50 mg PO DAILY tab 08/28/18 Insulin Aspart [Novolog Flexpen] 8 units SUBCUT DAILY PRN 04/11/19 Codeine Phosphate/Guaifenesin [Virtussin AC 10-100 mg/5 ml Lq] 5 ml PO Q6H PRN PRN 01/01/20 Esomeprazole Magnesium 40 mg PO DAILY 01/01/20 Mirabegron [Myrbetriq] 50 mg PO BID 01/01/20 Melatonin 10 mg PO PRN PRN 01/02/20 Aspirin [Aspirin, Baby] 81 mg PO DAILY@0800 #30 tab.chew 01/03/20 Atorvastatin Calcium 20 mg PO DAILY #30 tab 01/03/20 The following prescriptions were given: Aspirin [Aspirin, Baby] 81 mg PO DAILY@0800 #30 tab.chew Transmission Status: Pending to [id number] Atorvastatin Calcium 20 mg PO DAILY #30 tab Transmission Status: Pending to [id number] Primary Care Physician: Emily Yun MD [Primary Care Provider] - Please follow up with your Primary Care Physician in: 1 Week Test Results: Test results from this visit will be discussed in further detail at your follow-up appointment, if applicable. Please Follow Up With: Hernando Pandya MD When: 1 Week Proposed Discharge Date: 01/03/20
--- NOTE | 2020-01-03 11:33 | PCM.DC.SUM ---
<Simran Ibarra - Last Filed: 01/03/20 11:41> Discharge Date and Diagnosis Date of Admission: 01/01/20 Date of Discharge: 01/03/20 - Primary Discharge Diagnosis Acute Problems: Active Problems (Last Reviewed 09/23/19 @ 09:45 by Simran Vargas) 1. 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 Type 2 diabetes mellitus 3. Hypertension 4. Hyperlipidemia 5. 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 Chronic migraines 7. Depression/anxiety - Secondary Discharge Diagnosis Chronic Problems: Chronic Problems (Last Reviewed 09/23/19 @ 09:45 by Simran Vargas) Bronchiectasis (Chronic) Essential (primary) hypertension (Chronic) DM2 (diabetes mellitus, type 2) (Chronic) Hospital Course and Treatment Imaging Results: Diagnostic Data Brain CT 01/01/20 12:12 IMPRESSION: Chronic involutional changes of the brain. Electronically Signed: Mireya Ojeda at 13:18 EDT Tel , Service support , Chest X-Ray 01/01/20 12:12 IMPRESSION: Degenerative changes, as described above. No demonstrated acute cardiopulmonary process. Electronically Signed: Mireya Ojeda at 13:17 EDT Tel , Service support , Head/Neck CTA 01/01/20 13:30 IMPRESSION: 1. There is moderate calcified atherosclerotic plaque formation of the origin of the right internal carotid artery with an estimated stenosis of 50-69% stenosis. 2. Essentially normal left carotid arteries with exception of a tiny focus of plaque. 3. There is no demonstrated aneurysm of the [place]. No demonstrated occlusion or intraluminal thrombus in the major arteries. No hemodynamically significant stenosis is present. Electronically Signed: Steve Ruvalcaba MD at 14:25 EDT , Service support , Brain MRI 01/01/20 15:46 IMPRESSION: 1. Extensive chronic ischemic and mild involutional changes of the brain, as described above. Electronically Signed: Steve Ruvalcaba MD at 19:13 EDT , Service support , Neck MRA 01/02/20 11:41 IMPRESSION: 1. Normal right common carotid bulb. There is moderate atherosclerotic plaque formation of the origin of the right internal carotid artery with an estimated short focal segment stenosis of 50-69% stenosis, see images 81/134 series #4 and images 50/81 series [id number]. Electronically Signed: Steve Ruvalcaba MD at 16:20 EDT , Service support , SOC neurology Operations: None Procedures: 2-D Echocardiogram Summary of Care Provided: The patient is a 79 year old F admitted 01/01/2020 due to numbness and tingling of the right side and in coronation in her right hand. 1. 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 MRI of brain did demonstrate small lacunar infarct. CTA showed right ICA with 50 to 69% stenosis. Recommended checking MRA to confirm stenosis. MRA of neck also showed right internal carotid artery with 50 to 69% stenosis. Urinalysis unremarkable. Echocardiogram demonstrates an EF of 60%, stage I diastolic dysfunction. Aspirin, statin. Patient stable for discharge home with follow-up with primary care physician and neurology. Outpatient physical therapy ordered. 2. Type 2 diabetes mellitus-continue home insulin regimen. Hemoglobin A1c 7.4%. 3. Hypertension-stable, continue metoprolol regimen. 4. Hyperlipidemia-home statin regimen increased. 5. 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 Bran. 6. Chronic migraines-on PRN sumatriptan. 7. Depression/anxiety-continue sertraline. On PRN lorazepam. General: Alert, Oriented x3, Cooperative HEENT: Atraumatic, PERRLA, EOMI, Normocephalic Neck: Supple, No JVD, Negative Carotid Bruits Lungs: Clear to auscultation, Normal air movement Cardiovascular: Regular rate, Regular Rhythm, Normal S1, Normal S2, No murmurs Abdomen: Bowel Sounds Present, Soft, Non Tender, Non-Distended Extremities: No clubbing, No cyanosis, No edema, Capillary Refill Less than 3 Seconds Skin: No rashes, No breakdown Musculoskeletal: No Tenderness to Palpation of Joints or Extremities Neurological: Cranial nerves II-XII grossly intact, Right upper extremity ataxia, right lower extremity mild sensory deficit. Psych/Mental Status: Normal Affect, Appropriate Patient seen and examined prior to discharge. Physical assessment as noted above. Patient is stable for discharge with follow up recommendations as noted above. This patient was seen by SHERRY Ford under the supervision of Dr. Rice. - Physical Exam Vitals/I&O's: Vital Signs Temp Pulse Resp BP Pulse Ox 98.1 F 64 16 132/77 H 98 01/03/20 08:25 01/03/20 09:08 01/03/20 08:25 01/03/20 09:08 01/03/20 08:25 Oxygen Delivery Method Room Air Weight: 132 lb 11.492 oz Body Mass Index (BMI) 24.3 Finger Stick Blood Glucose 222 Intake and Output for Last 24 Hours 01/01/20 01/02/20 01/03/20 23:59 23:59 23:59 Intake Total 60 / 300 1900 / 2100 250 / 250 Output Total 300 / 300 Balance 60 / 300 1600 / 1800 250 / 250 Laboratory Results 01/02/20 13:20: Urine Color Yellow, Urine Clarity Clear, Urine pH 6.5, Ur Specific [place] 1.010, Urine Protein Negative, Urine Glucose (UA) 50 H, Urine Ketones Negative, Urine Occult Blood 10 H, Urine Nitrite Negative, Urine Bilirubin Negative, Urine Urobilinogen Normal, Ur Leukocyte Esterase Negative, Urine RBC 0-5 SEEN, Urine WBC 0-5 SEEN, Ur Squamous Epith Cells 0-5 SEEN, Urine Bacteria 0 SEEN, Urine Mucus 0 SEEN 01/02/20 16:11: POC Glucose 190 H 01/02/20 21:09: POC Glucose 192 H 01/03/20 06:36: POC Glucose 167 H Current Medications Acetaminophen (Tylenol) 650 mg PO Q6H PRN PRN PRN Reason: Pain Score 1-10/Temp > 100.7 F Aspirin (Aspirin, Baby) 81 mg PO DAILY@0800 [facility] Last Admin: 01/03/20 09:05 Dose: 81 mg Documented by: Atorvastatin Calcium (Lipitor) 80 mg PO QHS [facility] Last Admin: 01/02/20 21:11 Dose: 80 mg Documented by: Cholecalciferol (Vitamin D (25mcg)) 1,000 unit PO DAILY [facility] Last Admin: 01/03/20 09:09 Dose: 1,000 unit Documented by: Dextrose (D50w Syringe) 0 gm IV X1 PRN; Protocol PRN Reason: Hypoglycemia Enoxaparin Sodium (Lovenox) 40 mg SC DAILY [facility] Last Admin: 01/03/20 09:06 Dose: 40 mg Documented by: Gabapentin (Neurontin) 300 mg PO BID [facility] Last Admin: 01/03/20 09:06 Dose: 300 mg Documented by: Glucagon () 1 mg IM .X1 PRN PRN Reason: Hypoglycemia Hydralazine HCl (Apresoline Iv) 5 mg IV Q30M PRN PRN Reason: to maintain BP goals Sodium Chloride () 250 mls @ 15 mls/hr IV .[id number] PRN PRN Reason: Saline Flush Sodium Chloride () 250 mls @ 15 mls/hr IV .[id number] PRN PRN Reason: Additional IVPB Infusion Insulin Glargine (Lantus (Bkc)) 24 units SC QHS [facility] Last Admin: 01/02/20 21:12 Dose: 24 units Documented by: Insulin Human Lispro (Humalog Kwikpen (Bkc)) 0 unit SC ACHS [facility]; Protocol Last Admin: 01/03/20 11:19 Dose: 6 units Documented by: Labetalol HCl (Trandate) 20 mg IV X1 PRN PRN Reason: BLOOD PRESSURE Labetalol HCl (Trandate) 10 - 20 mg IV Q10M PRN PRN PRN Reason: to maintain BP goals Lorazepam (Ativan) 0.5 mg PO DAILY [facility] Last Admin: 01/03/20 09:08 Dose: 0.5 mg Documented by: Lorazepam (Ativan) 1 mg IV X1 PRN PRN Reason: anxiety for MRI Last Admin: 01/02/20 14:37 Dose: 1 mg Documented by: Melatonin (Melatonin) 10 mg PO QHS PRN PRN Reason: INSOMNIA Last Admin: 01/02/20 21:11 Dose: 10 mg Documented by: Metoprolol Succinate (Toprol Xl (Beta Chetan)) 200 mg PO DAILY [facility] Last Admin: 01/03/20 09:08 Dose: 200 mg Documented by: Mirabegron (Myrbetriq) 50 mg PO BID [facility] Last Admin: 01/03/20 09:06 Dose: 50 mg Documented by: Morphine Sulfate () 2 mg IV Q3H PRN PRN PRN Reason: Pain Score 6-10/10 Multivitamins (Multivitamin) 1 tablet PO DAILY@0800 [facility] Last Admin: 01/03/20 09:06 Dose: 1 tablet Documented by: Nitroglycerin (Nitrostat) 0.4 mg SUBLINGUAL Q5M PRN PRN Reason: CARDIAC/CHEST PAIN Pantoprazole Sodium (Protonix) 40 mg PO DAILY [facility] Last Admin: 01/03/20 09:06 Dose: 40 mg Documented by: Prochlorperazine Edisylate (Compazine Iv) 5 mg IV Q4H PRN PRN PRN Reason: Breakthrough Nausea/Vomiting Last Admin: 01/03/20 02:14 Dose: 5 mg Documented by: Rizatriptan Benzoate (Maxalt) 10 mg PO .X1 PRN PRN PRN Reason: MIGRAINE SYMPTOMS Senna/Docusate Sodium (Senokot-S, Jennifer-Colace) 2 tablet PO BID PRN PRN PRN Reason: Constipation Sertraline HCl (Zoloft) 50 mg PO DAILY [facility] Last Admin: 01/03/20 09:09 Dose: 50 mg Documented by: Sodium Chloride () 10 - 40 ml IV UD PRN PRN Reason: SALINE FLUSH Last Admin: 01/03/20 02:14 Dose: 10 ml Documented by: Discharge Diet: Low fat/ Low Cholesterol, Carb Control Diet Discharge Activity: Return to Normal Activity Call your doctor if you observe: Shortness of breath, Dizziness, Fainting spells, Chest pain Home Medications: Medications to take at Discharge Cholecalciferol (VIT D3) [Vitamin D3] 1,000 unit PO DAILY 03/13/17 Gabapentin [Neurontin] 300 mg PO BID 03/13/17 Glimepiride [Amaryl] 2 mg PO BID 03/13/17 Insulin Glargine,Hum.rec.anlog [Lantus] 24 unit SQ QHS 03/13/17 Metoprolol Succinate [Toprol Xl] 200 mg PO DAILY 03/13/17 Multivitamin [Multiple Vitamins] 1 ea PO DAILY 03/13/17 Sumatriptan Succinate [Imitrex] 50 mg PO .X1 PRN PRN 03/13/17 lorazepam 1 mg tablet 0.5 mg PO DAILY tab 08/28/18 sertraline 50 mg tablet 50 mg PO DAILY tab 08/28/18 Insulin Aspart [Novolog Flexpen] 8 units SUBCUT DAILY PRN 04/11/19 Codeine Phosphate/Guaifenesin [Virtussin AC 10-100 mg/5 ml Lq] 5 ml PO Q6H PRN PRN 01/01/20 Esomeprazole Magnesium 40 mg PO DAILY 01/01/20 Mirabegron [Myrbetriq] 50 mg PO BID 01/01/20 Melatonin 10 mg PO PRN PRN 01/02/20 Aspirin [Aspirin, Baby] 81 mg PO DAILY@0800 #30 tab.chew 01/03/20 Atorvastatin Calcium 20 mg PO DAILY #30 tab 01/03/20 Following Prescrptions Were Given to Patient: Aspirin [Aspirin, Baby] 81 mg PO DAILY@0800 #30 tab.chew Transmission Status: Received by [id number] Atorvastatin Calcium 20 mg PO DAILY #30 tab Transmission Status: Received by [facility] Primary Care Physician: Emily Yun MD [Primary Care Provider] - Please follow up with your Primary Care Physician in: 1 Week Please Follow Up With: Hernando Pandya MD When: 1 Week Disposition: Home Minutes spent on discharge:: 35 Patient Condition:: Stable Medical Necessity - Tobacco Use Smoking Status: Never smoker Meaningful Use Info Meaningful Use Diagnoses (Choose all that apply): None applicable <Brenden Rice - Last Filed: 01/03/20 14:34> Discharge Date and Diagnosis - Secondary Discharge Diagnosis Chronic Problems: Chronic Problems (Last Updated 01/03/20 @ 11:33 by SHERRY Ford) Bronchiectasis (Chronic) Essential (primary) hypertension (Chronic) DM2 (diabetes mellitus, type 2) (Chronic) Hospital Course and Treatment Summary of Care Provided: This patient was seen in conjunction with Simran ALVAREZ. I have independently interviewed and examined the patient and reviewed pertinent history, examination findings, laboratory and plan of management. I have reviewed the note and agree with the documented findings with the few additional points. In brief, patient is admitted for possible ACUTE small left sided CVA. MRI brain is negative for acute infarct but reported small lacunar infarct in the anterior limb of left internal capsule. Clinically she has findings of acute infarct. R ICA 50 to 69% stenosis as per CTA neck. MRA neck ordered by neurologist. Extensive chronic small vessel white matter disease. UA with reflex urine culture. Fasting profile, total cholesterol 203, LDL 86, HDL 43. Lipitor increased to 20 mg daily. Type 2 diabetes mellitus: A1c 7.4. Glucose acceptable but not at goal therefore needs further titration with PCP. Hypertension: Blood pressure is controlled. 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 Discharge medication reconciliation done. Discharge follow-up instructions completed. Discharge process discussed with the patient and all questions were answered to patient's satisfaction. She was recommended outpatient PT Total time spent, exact 35 minutes on discharge meds reconciliation, examination, coordination of care with nurses and ancillary staff, review of imaging and blood test and discussion with the patient on follow-up instructions I have discussed my assessment with BOROUGH COORDINATORSimran and orders have been reviewed. Subjective: Seen and examined. Patient blood pressure is controlled. Hemodynamically vitals are stable. Objective: General: Alert, Oriented x3, Cooperative HEENT: Atraumatic, PERRLA, EOMI, Normocephalic Neck: Supple, No JVD, Negative Carotid Bruits Lungs: Clear to auscultation, Normal air movement Cardiovascular: Regular rate, Regular Rhythm, Normal S1, Normal S2, No murmurs Abdomen: Bowel Sounds Present, Soft, Non Tender, Non-Distended Extremities: No clubbing, No cyanosis, No edema, Capillary Refill Less than 3 Seconds Skin: No rashes, No breakdown Musculoskeletal: No Tenderness to Palpation of Joints or Extremities Neurological: Cranial nerves II-XII grossly intact, - - Right upper extremity ataxia, right lower extremity mild sensory deficit. Psych/Mental Status: Normal Affect, Appropriate - Physical Exam Vitals/I&O's: Vital Signs Temp Pulse Resp BP Pulse Ox 98.1 F 64 16 132/77 H 98 01/03/20 08:25 01/03/20 09:08 01/03/20 08:25 01/03/20 09:08 01/03/20 08:25 Oxygen Delivery Method Room Air Weight: 132 lb 11.492 oz Body Mass Index (BMI) 24.3 Finger Stick Blood Glucose 222 Intake and Output for Last 24 Hours 01/01/20 01/02/20 01/03/20 23:59 23:59 23:59 Intake Total 60 / 300 1900 / 2100 730 / 730 Output Total 300 / 300 Balance 60 / 300 1600 / 1800 730 / 730 General: Alert, Oriented x3, Cooperative HEENT: Atraumatic, PERRLA, EOMI, Normocephalic Neck: Supple, No JVD, Negative Carotid Bruits Lungs: Clear to auscultation, Normal air movement, No rhonchi, No wheeze, No rales Cardiovascular: Regular rate, Regular Rhythm, Normal S1, Normal S2, No murmurs Abdomen: Bowel Sounds Present, Soft, Non Tender, Non-Distended Extremities: No edema, Capillary Refill Less than 3 Seconds Skin: No rashes, No breakdown Musculoskeletal: No Tenderness to Palpation of Joints or Extremities Neurological: Cranial nerves II-XII grossly intact, - - Right upper extremity ataxia with mild right lower extremity sensory loss. Psych/Mental Status: Normal Affect, Appropriate Laboratory Results 01/02/20 16:11: POC Glucose 190 H 01/02/20 21:09: POC Glucose 192 H 01/03/20 06:36: POC Glucose 167 H 01/03/20 11:18: POC Glucose 286 H Inpatient E&M: [id number] Disch Hosp
[2020-01-03 11:56] LABS: Bedside Glucose 286 mg/dL (70-110)
--- OUTSIDE RECORDS SUMMARY | 2020-05-25 15:21 | XMS RPT_ITS | CCD ---
:1940 External Reference #:[id number] Author Organization [facility] Care Team Providers Name Role Phone Rhonda Blount Primary Care Provider Allergies Reported Allergen Reaction(s) Severity Date of Onset Location Adhesive Tape Hives 08-31-2008 - [facility] ([id number]) Aspirin Contraind[facility]Medi [facility] (47968) Ciprofloxacin Other: See Comments 12-01-2013 - [place] ([id number]) Codeine GI Upset 08-24-2005 - [facility] (74318) Ibandronate [facility]23[facility]) Ibuprofen [facility] Upset 03-[facility] (69010) Iodine Vomiting 08-25-2008 [facility] (97371) lansoprazole Diarrhea 11-01-2011 [facility] (20757) metFORMIN Diarrhea 05-10-2011 - [facility] (75232) nabumetone GI Upset, Vomiting 03-22-2006 - [facility] (25465) Vuvumlqa-Quziiwrgrg-Bdg Rash 08-31-2008 - [facility] ymyxin (42328) pantoprazole Diarrhea 01-13-2010 - [facility] (62032) pioglitazone Swelling Low 12-03-2016 - [facility] (56295) Sucralfate Other: See Comments 04-24-2012 - [facility] (71046) Medications Medication Name Sig Date Prescriber Location Aspirin aspirin, enteric coated [facility] Provider [facility] ([id number]) (ASPIRIN, ENTERIC COATED) 81 mg EC tablet Take 81 mg by mouth once daily. 0 Active Comment: Take 81 mg by mouth once danuta ly. atorvastatin atorvastatin (LIPITOR) 01-08-2020 Alicia D [facility] 20 mg tablet Take 1 (32891) tablet by mouth once daily. 90 tablet 3 01/08/2020 Active Comment: Take 1 tablet by mouth once daily. Biotin Biotin 2,500 mcg cap Nurse 01-27-2020 Alicia Bateman [facility] (60837) reports patient taking 1500 mcg dose once daily (cannot find 1500mcg dose on menu) 0 01/27/2020 Active Comment: Nurse reports patient taking 1500 mcg dose once daily (cannot find 1500mcg dose on menu) Blood-Glucose Meter Blood-Glucose Meter 05-23-2017 Alicia Rhonda [facility] (ONETOUCH ULTRA2) (ONETOUCH ULTRA2) (4419 5) monitoring kit monitoring kit 1 Each as needed. One Touch Meter Kit Diagnosis: Type 2 DM - Controlled E11.9 1 Each 0 05/23/2017 Active Blood-Glucose Meter (ONETOUCH 05-23-2017 Alicia Rhonda [facility] (62406) ULTRA2) monitoring kit 1 Each as needed. One Touch Meter Kit Diagnosis: Type 2 DM - Controlled E11.9 1 Each 0 05/23/2017 Active Blood-Glucose Meter (ONETOUCH 05-23-2017 Alicia Rhonda [facility] (82158) ULTRA2) monitoring kit 1 Each as needed. One Touch Meter Kit Diagnosis: Type 2 DM - Controlled E11.9 1 Each 0 05/23/2017 Active Blood-Glucose Meter (ONETOUCH 05-23-2017 Alicia Rhonda [facility] (40025) ULTRA2) monitoring kit 1 Each as needed. One Touch Meter Kit Diagnosis: Type 2 DM - Controlled E11.9 1 Each 0 05/23/2017 Active Blood-Glucose Meter (ONETOUCH 05-23-2017 [facility] (79353) ULTRA2) monitoring kit 1 Each as needed. One Touch Meter Kit Diagnosis: Type 2 DM - Controlled E11.9 1 Each 0 05/23/2017 Active Blood-Glucose Meter (ONETOUCH 05-23-2017 [facility] (56703) ULTRA2) monitoring kit 1 Each as needed. One Touch Meter Kit Diagnosis: Type 2 DM - Controlled E11.9 1 Each 0 05/23/2017 Active Comment: 1 Each as needed. One Touch Meter Kit Diagnosis: Type 2 DM - Controlled E11.9 Capsaicin capsaicin (ZOSTRIX) 01-27-2020 [facility] ([facility]) Berry [facility] 0.025 % cream Apply 3 (95571 ) application to affected area three times daily. January 27, 2020 states not using 100 g 0 01/27/2020 Active Comment: Apply 3 application to affec amando area three times daily. January 27, 2020 states not using Cephalexin Cephalexin 250 mg tab 08-08-2019 Ailcia Rhonda Blount [facility] Take 1 tablet by mouth (4419 5) daily at bedtime. (Dr Don) 0 08/08/2019 Active Comment: Take 1 tablet by mouth daily at bedtime. (Dr Don) Cholecalciferol Cholecalciferol, Vitamin 04-25-2019 [facility] ([facility] D3, 1,000 unit cap Take 2 Berry (4 4195) capsules by mouth once daily. 0 04/25/2019 Active Comment: Take 2 capsules by mouth onc e daily. COMPOUNDED COMPOUNDED 01-03-2018 Alicia Rhonda Blount [facility] in PRESCRIPTION PRESCRIPTION Custom (70070) orthotics (E08.40, Z79.4) 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, with long-term current use of insulin 2 Each 0 01/03/2018 Active COMPOUNDED PRESCRIPTION Custom 01-03-2018 [facility] (66069[facility] orthotics (E08.40, Z79.4) 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, with long-term current use of insulin 2 Each 0 01/03/2018 Active COMPOUNDED PRESCRIPTION Custom 01-03-2018 [facility]ia D [facility] (42031) orthotics (E08.40, Z79.4) 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, with long-term current use of insulin 2 Each 0 01/03/2018 Active COMPOUNDED PRESCRIPTION Custom 01-03-2018 [address] [facility] (98029) orthotics (E08.40, Z79.4) 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, with long-term current use of insulin 2 Each 0 01/03/2018 Active COMPOUNDED PRESCRIPTION Custom 01-03-[facility] (44612[facility] (E08.40, Z79.4) 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, with long-term current use of insulin 2 Each 0 01/03/2018 Active COMPOUNDED PRESCRIPTION Custom 01-03-2018 Alicia Rhonda [facility] (68063) orthotics (E08.40, Z79.4) 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, with long-term current use of insulin 2 Each 0 01/03/2018 Active Comment: Custom orthotics (E08.40, Z7 9.4) Diabetes 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 condition with diabetic neur opathy, with long-term current use of insulin Cranberry-Vitamin Cranberry-Vitamin 01-27-2020 [facility] David balbuena C-Vitamin E (CRANBERRY C-Vitamin E ([facility] (24261) PLUS VITAMIN C) 140-100 PLUS VITAMIN C) 140-100 mg cap mg cap Patient takes Cranberry with Vitamin C capsule that contains 15,000 mg Cranberry and 100mg Vitamin C 0 01/27/2020 Active Cranberry-Vitamin C-Vitamin E 01-27-2020 [facility] (08436) (CRANBERRY PLUS VITAMIN C) 140-100 mg cap Patient takes Cranberry with Vitamin C capsule that contains 15,000 mg Cranberry and 100mg Vitamin C 0 01/27/2020 Active Cranberry-Vitamin C-Vitamin E 01-27-2020 [facility] (86373) (CRANBERRY PLUS VITAMIN C) 140-100 mg cap Patient takes Cranberry with Vitamin C capsule that contains 15,000 mg Cranberry and 100mg Vitamin C 0 01/27/2020 Active Cranberry-Vitamin C-Vitamin E 01-27-2020 [facility] (76805) (CRANBERRY PLUS VITAMIN C) 140-100 mg cap Patient takes Cranberry with Vitamin C capsule that contains 15,000 mg Cranberry and 100mg Vitamin C 0 01/27/2020 Active Cranberry-Vitamin C-Vitamin E 01-27-2020 [facility] (24179) (CRANBERRY PLUS VITAMIN C) 140-100 mg cap Patient takes Cranberry with Vitamin C capsule that contains 15,000 mg Cranberry and 100mg Vitamin C 0 01/27/2020 Active Cranberry-Vitamin C-Vitamin E 01-27-2020 Alicia Blount [facility] (16271) (CRANBERRY PLUS VITAMIN C) 140-100 mg cap Patient takes Cranberry with Vitamin C capsule that contains 15,000 mg Cranberry and 100mg Vitamin C 0 01/27/2020 Active Comment: Patient takes Cranberry with Vitamin C capsule that contains 15,000 mg Cranberry and 100mg Vitamin C Esomeprazole esomeprazole (NEXIUM) 40 mg 06-18-2019 Medhat [facility] capsule Indications: (39749) 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 90 capsule 3 06/18/2019 Active Comment: Take 1 capsule by mouth PAOLA Y (6 AM). Estrogens, Conjugated PREMARIN vaginal 06-25-2019 [facility] Provider [facility] (SHELTER) cream APPLY 0.5 GRAMS (57856 ) VAGINALLY BEFORE BED EVERY NIGHT FOR 14 DAYS THEN USE TWICE A WEEK FOR 3 MONTHS 0 06/25/2019 Active Comment: APPLY 0.5 GRAMS VAGINALLY BE FORE BED EVERY NIGHT FOR 14 DAYS THEN USE TWICE A WEEK FOR 3 MONTHS gabapentin gabapentin 09-23-2019 - Alicia Ellis [facility]ic (NEURONTIN) 300 mg 10-11-2020 (52460) capsule Indications: 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, with long-term current use of insulin ([facility]) Take 1 capsule by mouth twice daily for 180 days. Morning and bedtime 180 capsule 1 04/14/2020 10/11/2020 Active Comment: Take 1 capsule by mouth twic e daily for 180 days. Morning and bedtime glimepiride glimepiride (AMARYL) 2 09-14-2019 Clarence (Brownell Operator) [facility] mg tablet Indications: (4419 5) 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, with long-term current use of insulin ([facility]) Take 1 tablet by mouth twice daily with meals. 180 tablet 1 09/14/2019 Active Comment: Take 1 tablet by mouth twice daily with meals. Insulin Glargine insulin glargine 02-18-2020 Alicia Blount [facility] (LANTUS SOLOSTAR U-100 (4419 5) INSULIN) 100 unit/mL (3 mL) Inject 24 Units subcutaneously daily at bedtime. 15 mL 3 02/18/2020 Active Comment: Inject 24 Units subcutaneous ly daily at bedtime. Insulin, Aspart, insulin aspart U-100 10-24-2019 - Alicia Ellis [facility] (NOVOLOG FLEXPEN 10-23-2020 (23429) U-100 INSULIN) 100 unit/mL (3 mL) Inject 8 Units subcutaneously twice daily with meals. Adjust as directed 5 Pen 11 10/24/2019 10/23/2020 Active Comment: Inject 8 Units subcutaneousl y twice daily with meals. Adjust as directed Ketoconazole ketoconazole (NIZORAL) 2 01-27-2020 Alicia Rhonda [facility] % cream Apply 1 (32633) application to affected area twice daily. Continue for 1 week after rash resolves. 30 g 0 01/27/2020 Active Comment: Apply 1 application to affec amando area twice daily. Continue for 1 week after rash resolves. LORazepam LORazepam (ATIVAN) 1 01-06-2020 - Alicia Ellis [facility] mg tablet Indications: 07-13-2020 (4419 5) Anxiety TAKE 1/2 TO 1 TABLET BY MOUTH EVERY DAY NEEDED FOR FOR ANXIETY 30 tablet 2 04/14/2020 07/13/2020 Active Comment: TAKE 1/2 TO 1 TABLET BY MOUT H EVERY DAY NEEDED FOR FOR ANXIETY Metoprolol metoprolol succinate ER 06-20-2019 Alicia Ellis [facility] (TOPROL XL) 200 mg 24 hr (44 195) tablet Indications: Essential hypertension Take 1 tablet by mouth once daily. 90 tablet 3 06/20/2019 Active Comment: Take 1 tablet by mouth once daily. mirabegron mirabegron (MYRBETRIQ) 50 10-24-2019 Alicia Ellis [facility] mg Tb24 Take 1 tablet by (44 195) mouth twice daily. 0 10/24/2019 Active Comment: Take 1 tablet by mouth twice daily. Miscellaneous Medical Miscellaneous Medical 08-08-2019 Alicia Ellis [facility] (98564) Indications: 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, with long-term current use of insulin (HCC) Custom Orthotics (E08.40, Z79.4) 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, with long-term current use of insulin 2 Each 0 08/08/2019 Active [facility] 08-08-2019 [facility] Rhonda [facility] (02662) Indications: 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, with long-term current use of insulin (HCC) Custom Orthotics (E08.40, Z79.4) 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, with long-term current use of insulin 2 Each 0 08/08/2019 Active [facility] 08-08-2019 [facility] (50120) Indications: 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, with long-term current use of insulin (HCC) Custom Orthotics (E08.40, Z79.4) 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, with long-term current use of insulin 2 Each 0 08/08/2019 Active [facility] 08-08-2019 [facility] (90943) Indications: 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, with long-term current use of insulin (HCC) [employer] (E08.40, Z79.4) 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, with long-term current use of insulin 2 Each 0 08/08/2019 Active [facility] 08-08-2019 [facility] (49799) Indications: 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, with long-term current use of insulin (HCC) [employer] (E08.40, Z79.4) 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, with long-term current use of insulin 2 Each 0 08/08/2019 Active [facility] 08-08-2019 [facility] (74451) Indications: 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, with long-term current use of insulin (HCC) [employer] (E08.40, Z79.4) 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, with long-term current use of insulin 2 Each 0 08/08/2019 Active Comment: [employer] (E08.40, Z7 9.4) Diabetes 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 condition with diabetic neur opathy, with long-term current use of insulin multivitamins(DAILY multivitamins(DAILY 12-08-2009 Randi Kessler [facility] MULTIVITAMIN TAB) MULTIVITAMIN TAB) Take (Quality Assurance Tech) [facility] (32356) one(1) tablet daily. 0 12/08/2009 Active multivitamins(DAILY MULTIVITAMIN 12-08-2009 Randi Jefferson (Quality Assurance Tech) [facility] TAB) Take one(1) tablet daily. 0 [place] (00111) 12/08/2009 Active multivitamins(DAILY MULTIVITAMIN 12-08-2009 Randi Jefferson (Quality Assurance Tech) [facility] TAB) Take one(1) tablet daily. 0 [place] (45153) 12/08/2009 Active multivitamins(DAILY MULTIVITAMIN 12-08-2009 Randi Jefferson (Quality Assurance Tech) [facility] TAB) Take one(1) tablet daily. 0 [place] (36890) 12/08/2009 Active multivitamins(DAILY MULTIVITAMIN 12-08-2009 Randi Jefferson (Quality Assurance Tech) [facility] TAB) Take one(1) tablet daily. 0 [place] (30926) 12/08/2009 Active multivitamins(DAILY MULTIVITAMIN 12-08-2009 Randi Jefferson (Quality Assurance Tech) [facility] TAB) Take one(1) tablet daily. 0 [place] (15211) 12/08/2009 Active Comment: Take one(1) tablet daily. oxybutynin oxybutynin ER (DITROPAN 08-08-2019 Alicia Blount [facility] XL) 10 mg 24 hr tablet (4419 5) Take 1 tablet by mouth twice daily. (Dr Don) 0 08/08/2019 Active Comment: Take 1 tablet by mouth twice daily. (Dr Don) Sertraline sertraline (ZOLOFT) 50 09-14-2019 Clarence (Brownell Operator) [facility] mg tablet Take 1 tablet (441 95) by mouth once daily. 90 tablet 3 09/14/2019 Active Comment: Take 1 tablet by mouth once daily. SUMAtriptan SUMAtriptan (IMITREX) 50 11-01-2018 [facility] Take 1 tablet (441 95) by mouth. at onset of headache. May take another tablet as needed one hour later. 10 tablet 5 11/01/2018 Active Comment: Take 1 tablet by mouth. at o nset of headache. May take another tablet as needed one hour later. vit C/E/Zn/coppr/lutein/zeaxan vit C/E/Zn/coppr/lutein/zeaxan [facility] (PRESERVISION AREDS-2 ORAL) ([facility] AREDS-2 ORAL) Provider Clinic Take by mouth twice daily. 0 (66590) Active vit C/E/Zn/coppr/lutein/zeaxan ([facility] Provider [facility] (09507) AREDS-2 ORAL) Take by mouth twice daily. 0 Active vit C/E/Zn/coppr/lutein/zeaxan ([facility] (82672) AREDS-2 ORAL) Take by mouth twice daily. 0 Active vit C/E/Zn/coppr/lutein/zeaxan ([facility] (87724) AREDS-2 ORAL) Take by mouth twice daily. 0 Active vit C/E/Zn/coppr/lutein/zeaxan ([facility] Provider [facility] (41195) AREDS-2 ORAL) Take by mouth twice daily. 0 Active vit C/E/Zn/coppr/lutein/zeaxan ([facility] (57650) AREDS-2 ORAL) Take by mouth twice daily. 0 Active Comment: Take by mouth twice daily. 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) Diabetes mellitus without Secondary diabetes Active 0 - [facility] complication mellitus (51625) Disorders of lipid Hyperlipidemia Active 11-06-2016 - [facility] metabolism (47332) Esophageal disorders Gastro-esophageal Active 11-23-2011 - [facility] reflux disease with (69843) esophagitis Essential hypertension Hypertensive disorder Active 3 - [facility] (86661) Genitourinary symptoms Urge incontinence of Active 12-16-2013 - [facility] and ill-defined urine (38175) conditions Headache; including Migraine Active 11-11-2014 - [facility] migraine (52562) Nutritional deficiencies Vitamin D deficiency Active 03-10-20 - [facility] (46336) Osteoarthritis Degenerative joint Active 03-06-2006 - [facility] disease involving (39394) multiple joints Osteoporosis Osteoporosis Active 02-19-2006 - [facility] (36068[facility] Other gastrointestinal Irritable bowel Active 02-01-2012 - [facility] disorders syndrome (04392) Other hereditary and Restless legs Active 06-19-2006 - [facility] degenerative nervous (40645) system conditions Other lower respiratory Chronic cough Active 01-27-2020 - [facility] disease (74332) Other nervous system 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 - [facility] disorders (84713) Other upper respiratory Allergic rhinitis Active 03-06-2006 - [facility] disease (16540) Spondylosis; Displacement of lumbar Active [facility] intervertebral disc intervertebral disc ( 29162) disorders; other back without myelopathy problems Past or Other Problems Category Problem Name Status Date Location Diseases of mouth; Xerostomia Completed 11-06-2016 - [facility] excluding dental (09394) Disorders of teeth Temporomandibular joint Completed 11-22-2018 - [facility] and jaw disorder (83560) Other disorders of Nonulcer dyspepsia Completed 08-20-2017 - [facility] stomach and duodenum (19423) Other upper Bronchospasm Completed 01-21-2015 - [facility] respiratory disease (58923) Residual codes; Insomnia Completed 04-30-2007 - [facility] unclassified (84380) Results Result Name Value Range Unit Interpretation Flag Date Location [facility] on 2020-04-27 [facility] Telephone (INTMWS) Normal 04-27-2020 [facility] ANA IVORY ([id number]) 1940 [facility] Date Time Provider Department (31268) 04/27/20 CLARENCE BERRY (BUSINESS ANALYSIS PROFESSIONAL) INTMWS During your visit today, we recorded the following informati on about you: Clarence Berry APRN.BUSINESS ANALYSIS PROFESSIONAL 04/27/2020 8:03 AM Signed Please let her know no acute changes found on CT head. Chron ic changes and previous stroke only. IMPRESSION: ? No acute intracranial abnormality. ? Moderate burden of presumed chronic microvascular ischemic c hanges and remote left lacunar infarct in the left lentiform nucleus. Yulisa Bills LPN 04/27/2020 9:25 AM Signed Patient notified of CT results and verbalized understanding. Allergies As of Date: 04/27/2020 Noted Allergy Reaction ADHESIVE TAPE (ROSINS) 08/31/2008 4 - Hives Comments: Rash around bandaid never been tested for latex al lergy ASPIRIN 04/16/2018 15 - Contraindication-Medical [place]* Comments: GI bleed BONIVA (IBANDRONATE) 12/04/2008 8 - GI Upset Comments: Esophageal burning CARAFATE (SUCRALFATE) 04/24/2012 14 - Other: See Comments Comments: feels poorly CIPROFLOXACIN 12/01/2013 14 - Other: See Comments Comments: photosensitivity, dermatitis CODEINE 08/24/2005 8 - GI Upset IBUPROFEN 03/22/2006 8 - GI Upset IODINE 08/25/2008 11 - Vomiting LANSOPRAZOLE 11/01/2011 6 - Diarrhea METFORMIN 05/10/2011 6 - Diarrhea NEOSPORIN ([id number]-[id number]-OH*08/31/2008 2 - Rash Comments: blisters PROTONIX (PANTOPRAZOLE) 01/13/2010 6 - Diarrhea RELAFEN (NABUMETONE) 03/22/2006 8 - GI Upset 11 - Vomiting ACTOS (PIOGLITAZONE HCL) 12/03/2016 7 - Swelling Date Reviewed: 04/26/2020 Reviewed by: Yulisa Bills LPN - Fully Assessed Reason for Visit: Results [95] Cmt: CT Prescriptions as of 04/27/2020 Sig: GABAPENTIN 300 MG CAPSULE Take 1 capsule by mouth twice* Patient taking differently: Take 300 mg by mouth daily at* LORAZEPAM 1 MG TABLET TAKE 1/2 TO 1 TABLET BY MOUTH* PEN NEEDLE, DIABETIC 31 GAUGE* Use 1 needle for each dose. 4 * LANTUS SOLOSTAR U-100 INSULIN* Inject 24 Units subcutaneousl * LANCETS Micro-lancets to work with cu* KETOCONAZOLE 2 % TOPICAL CREAM Apply 1 application to affect * CAPSAICIN 0.025 % TOPICAL CRE* Apply 3 application to affect * CRANBERRY PLUS VITAMIN C 140 * Patient takes Cranberry with * BIOTIN 2,500 MCG CAPSULE Nurse reports patient taking * ASPIRIN 81 MG TABLET,DELAYED * Take 81 mg by mouth once paola * ATORVASTATIN 20 MG TABLET Take 1 tablet by mouth once d* MIRABEGRON ER 50 MG TABLET,EX* Take 1 tablet by mouth twice * INSULIN ASPART (U-100) 100 UN* Inject 8 Units subcutaneously * GLIMEPIRIDE 2 MG TABLET Take 1 tablet by mouth twice * Patient not taking: Reported on 04/26/2020 SERTRALINE 50 MG TABLET Take 1 tablet by mouth once d* PREMARIN 0.625 MG/GRAM VAGINA* APPLY 0.5 GRAMS VAGINALLY BEF * CEPHALEXIN 250 MG TABLET Take 1 tablet by mouth daily * Patient not taking: Reported on 01/27/2020 OXYBUTYNIN CHLORIDE ER 10 MG * Take 1 tablet by mouth twice * MISCELLANEOUS MEDICAL SUPPLY * [employer] (E08.40, Z* METOPROLOL SUCCINATE ER 200 M* Take 1 tablet by mouth once d * ESOMEPRAZOLE MAGNESIUM 40 MG * Take 1 capsule by mouth DAILY * BLOOD SUGAR DIAGNOSTIC STRIPS Check blood sugars 2x per day* PRESERVISION AREDS-2 ORAL Take by mouth twice daily. CHOLECALCIFEROL (VITAMIN D3) * Take 2 capsules by mouth once * SUMATRIPTAN 50 MG TABLET Take 1 tablet by mouth. at on* Patient not taking: Reported on 01/27/2020 COMPOUNDED PRESCRIPTION Custom orthotics (E08.40, Z7* BLOOD SUGAR DIAGNOSTIC STRIPS Test blood sugar(s) 2 times d* LANCETS Test blood sugar(s) 2 times * BLOOD-GLUCOSE METER KIT 1 Each as needed. One Touch M* LANCETS 1 Each twice daily. DX: 250.0* DAILY MULTIVITAMIN TABLET Take one(1) tablet daily. Problem List As Of Date 04/27/2020 Noted Resolved SPRAIN ROTATOR CUFF [S43.429A] 01/10/2003 03/03/2003 Complete rupture of rotator cuff [M75.120] 03/03/20032016 OSTEOPOROSIS NOS [M81.0] 02/19/2006 ALLERGIC RHINITIS NOS [J30.9] 03/06/2006 GENERAL OSTEOARTHROSIS [M15.9] 03/06/2006 Restless legs syndrome (RLS) [G25.81] 06/19/2006 LUMBAR DISC DISPLACEMENT [M51.26] More... Enlargement of lymph nodes [R59.9] 12/20/2006 08/15/2016 INSOMNIA NOS [G47.00] 04/30/2007 LUNG NODULE [R22.2] 09/05/2007 04/30/2015 STRICKLAND'S ESOPHAGUS [K22.70] Acute gastritis without mention of hemorrhage [*10/31/2007 0 09/15/2016 Pure hypercholesterolemia [E78.00] 12/14/2009 11/11/2014 Diabetes 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 condition w*02/07/2010 More... Anxiety [F41.9] 05/03/2011 More... Tendonitis of ankle, right [M77.51] 05/03/2011 08/15/2016 C. difficile diarrhea [A04.72] 10/18/2011 09/15/2016 Esophagitis, unspecified [K20.9] 11/23/2011 IBS (irritable bowel syndrome) [K58.9] 02/01/2012 More... Cataract [H26.9] 04/17/2013 09/15/2016 More... HTN (hypertension) [I10] 08/04/2013 More... Urge urinary incontinence [N39.41] 12/16/2013 Esophageal reflux [K21.9] 10/08/2014 10/08/2014 More... DVT prophylaxis [Z29.9] 11/11/2014 08/15/2016 More... DISPOSITION AND FOLLOW-UP [V999.01] 11/11/2014 08/15/2016 More... Migraines [G43.909] 11/11/2014 More... Hypoxia [R09.02] 11/14/2014 09/15/2016 More... 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 Mouth dryness [R68.2] 11/06/2016 Hyperlipidemia [E78.5] 11/06/2016 Functional dyspepsia [K30] 08/20/2017 More... 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 Gastroesophageal reflux disease with esophagiti*08/20/2017 More... 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 Encounter Status:Closed by YULISA BILLS LPN on 04/27/20 progress on 2020-04 PROGRESS HNO ID: [id number] Normal 04-26-2020 [facility] Author: Jessica Pete (Tech) [place] ([id number]) Service: ? Author Type: Licensed Optical Dispenser Type: Progress Notes Filed: 04/26/2020 4:08 PM Note Text: Radiology Service Progress Note PATIENT NAME: Ana Ivory DATE OF SERVICE: April 26, 2020 TIME: 4:07 PM PATIENT IDENTITY VERIFICATION COMPLETED USING TWO (2) IDENTI FIERS: Name and Date of confirmed by patient verbally. FALL SCREENING: Has the patient had 2 falls in the last year or 1 fall with injury or currently using an Ambulatory Assistive Devic e (Walker, Cane, Wheelchair, Crutches, etc.)? No PATIENT GENDER DATA: Female. status: : No status: NO. PATIENT RELEVANT IMPLANT DATA REVIEWED: Not Applicable RADIOLOGY DEPARTMENT: CT; Exam(s) Completed: Brain PERIPHERAL IV DATA: Not applicable SIGNED BY: Jessica Acuna April 26, 2020 4:07 PM PROGRESS HNO ID: [id number] Normal 04-26-2020 [facility] Author: Clarence Berry (Cns) [place] ([id number]) Service: ? Author Type: Nurse Specialist Type: Progress Notes Filed: 04/26/2020 3:26 PM Note Text: SUBJECTIVE: Ana Ivory is a 80 year old female. HEPATITIS C SCREENING due on 1960 ADVANCE DIRECTIVE DISCUSSION due on 09/25/2013 BP CONTROLLED (<130/80) due on 04/25/2020 HPI Mariellaalfonsoyehuda Ivory called the office this morning to advise jessi sims had a fall at home getting out of bed yesterday morning. States her leoncio t was caught in a blanket when she tried to get back fell sideways out of bed. Also states she does not recall falling. States she did strike th e left side of her head just above the ER nightstand. States no loss of consciousness. Has pain where she hit her head. No headache reported. Notes some blurry vision in the left eye. Today reports she does not recall arising from bed, she awok e on the floor with her foot elevated on the bed, head down, left side of h ead and neck struck the bedside table and walker. No report of LOC. Notes that since the fall the left side of her head head and left side of jaw and neck hurts, hit walker. One foot caught in sheet on bed. Lying on ground when found. Prodrome:no, perhaps not awake and rolled out of bed, she is not sure Loss of consciousness: No Nausea: No Vomiting: No Vision change:yes, blurry vision left eye since the fall Speech change: no change from baseline, no trouble talking Mobility change: Notes feeling wobbly or off balance since the fall, walking with walker Headache: Yes Seizure: No Loss of bowel or bladder control: No Obtunded: No OAC: no Review of Systems Constitutional: Negative for fever. Respiratory: Negative. Cardiovascular: Negative. Musculoskeletal: Positive for arthralgias, gait problem, ora lgias and neck pain. Neurological: Positive for headaches. Psychiatric/Behavioral: Negative for confusion. Objective Physical Exam Vitals signs and nursing note reviewed. Constitutional: General: She is not in acute distress. Appearance: Normal appearance. She is not ill-appearing or d iaphoretic. HENT: Head: Normocephalic. No raccoon eyes or left periorbital oniel thema. Jaw: Tenderness present. No swelling. Comments: Tender to palpation left side of face from jaw to confucianism, no step off or deformity appreciated on palpation, jaw mobility intact, left lateral neck tender to palpation, ROM neck preserved / at ba seline Eyes: General: Lids are normal. No visual field deficit. Left eye: No foreign body or discharge. Extraocular Movements: Extraocular movements intact. Left eye: Normal extraocular motion and no nystagmus. Conjunctiva/sclera: Conjunctivae normal. Left eye: Left conjunctiva is not injected. No hemorrhage. Pupils: Pupils are equal, round, and reactive to light. Cardiovascular: Rate and Rhythm: Normal rate and regular rhythm. Heart sounds: Normal heart sounds. Pulmonary: Effort: Pulmonary effort is normal. Breath sounds: Normal breath sounds. Neurological: General: No focal deficit present. Mental Status: She is alert and oriented to person, place, a nd time. Cranial Nerves: Cranial nerves are intact. No facial asymmet ry. Sensory: Sensation is intact. No sensory deficit. Coordination: Romberg sign negative. Comments: slow ataxic gait ALLERGIES Allergen Reactions - Adhesive Tape (Chapis* Hives Rash around bandaid never been tested for latex allergy - Aspirin Contraindication-Medical Surgical GI bleed - Boniva [Ibandronate] GI Upset Esophageal burning - Carafate [Sucralfat* Other: See Comments feels poorly - Ciprofloxacin Other: See Comments photosensitivity, dermatitis - Codeine GI Upset - Ibuprofen GI Upset - Iodine Vomiting - Lansoprazole Diarrhea - Metformin Diarrhea - Neosporin [Neomycin* Rash blisters - Protonix [Pantopraz* Diarrhea - Relafen [Nabumetone] GI Upset, Vomiting - Actos [Pioglitazone* Swelling gabapentin (NEURONTIN) 300 mg capsule Take 1 capsule by mout h twice daily for 180 days. Morning and bedtime LORazepam (ATIVAN) 1 mg tablet TAKE 1/2 TO 1 TABLET BY MOUTH EVERY DAY NEEDED FOR FOR ANXIETY Insulin Troy, Disposable, (EASY TOUCH) 31 gauge x 3/16 U se 1 needle for each dose. 4x daily insulin glargine (LANTUS SOLOSTAR U-100 INSULIN) 100 unit/mL (3 mL) Inject 24 Units subcutaneously daily at bedtime. Lancets lancets Micro-lancets to work with current meter - O ne touch. Sig: Test blood sugar(s) 2 times daily. Dx: Type 2 DM - Controlle d E11.9 , Insulin: Yes ketoconazole (NIZORAL) 2 % cream Apply 1 application to affe cted area twice daily. Continue for 1 week after rash resolves. capsaicin (ZOSTRIX) 0.025 % cream Apply 3 application to aff ected area three times daily. January 27, 2020 states not using Cranberry-Vitamin C-Vitamin E (CRANBERRY PLUS VITAMIN C) 140 -100 mg cap Patient takes Cranberry with Vitamin C capsule that contains 15,000 mg Cranberry and 100mg Vitamin C Biotin 2,500 mcg cap Nurse reports patient taking 1500 mcg d ose once daily (cannot find 1500mcg dose on menu) aspirin, enteric coated (ASPIRIN, ENTERIC COATED) 81 mg EC t ablet Take 81 mg by mouth once daily. atorvastatin (LIPITOR) 20 mg tablet Take 1 tablet by mouth o nce daily. mirabegron (MYRBETRIQ) 50 mg Tb24 Take 1 tablet by mouth twi ce daily. insulin aspart U-100 (NOVOLOG FLEXPEN U-100 INSULIN) 100 uni t/mL (3 mL) Inject 8 Units subcutaneously twice daily with meals. Adjust as directed glimepiride (AMARYL) 2 mg tablet Take 1 tablet by mouth twic e daily with meals. sertraline (ZOLOFT) 50 mg tablet Take 1 tablet by mouth once daily. PREMARIN vaginal cream APPLY 0.5 GRAMS VAGINALLY BEFORE BED EVERY NIGHT FOR 14 DAYS THEN USE TWICE A WEEK FOR 3 MONTHS Cephalexin 250 mg tab Take 1 tablet by mouth daily at bedtim e. (Dr Don) oxybutynin ER (DITROPAN XL) 10 mg 24 hr tablet Take 1 tablet by mouth twice daily. (Dr Don) [facility] (E08.40, Z79.4) 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, with long-term current use of insulin metoprolol succinate ER (TOPROL XL) 200 mg 24 hr tablet Take 1 tablet by mouth once daily. esomeprazole (NEXIUM) 40 mg capsule Take 1 capsule by mouth DAILY (6 AM). blood sugar diagnostic (EASY TOUCH TEST STRIP) test strip Ch serena blood sugars 2x per day and as needed Dx: E11.9 insulin: yes vit C/E/Zn/coppr/lutein/zeaxan (PRESERVISION AREDS-2 ORAL) T rajesh by mouth twice daily. Cholecalciferol, Vitamin D3, 1,000 unit cap Take 2 capsules by mouth once daily. SUMAtriptan (IMITREX) 50 mg tablet Take 1 tablet by mouth. a t onset of headache. May take another tablet as needed one hour later. COMPOUNDED PRESCRIPTION Custom orthotics (E08.40, Z79.4) Eidlma huntley 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 condition with diabetic neuropath y, with long-term current use of insulin blood sugar diagnostic (ONETOUCH ULTRA TEST) test strip Test blood sugar(s) 2 times daily. Dx: Type 2 DM - Controlled E11.9 Ins ulin: Yes Lancets (ONETOUCH ULTRASOFT LANCETS) lancets Test blood suga r(s) 2 times daily. Dx: Type 2 DM - Controlled E11.9 , Insulin: Yes Blood-Glucose Meter (ONETOUCH ULTRA2) monitoring kit 1 Each as needed. One Touch Meter Kit Diagnosis: Type 2 DM - Controlled E11.9 Lancets (EASY TOUCH LANCETS) lancets 1 Each twice daily. DX: 250.00 insulin multivitamins(DAILY MULTIVITAMIN TAB) Take one(1) tablet danuta ly. 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 difficile diarrhea 10/18/2011 - Cataract 04/17/2013 [facility], Dr. Dada Rodríguez. Mild cataract in L eye- no need for cataract surgery at this time. Continue to follow u p the cataract. 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 At thi s time, we anticipate that the patient will be discharged home once cli nically stable. Plan: - Discuss needs with patient. - Collaborate [employer] Case management to facilitate DC process - Will continue to evalu ate during the post op period. - Desat study 11/14/14: patient will need home oxygen (2 L with exertion only) - Discharge home today with home ca re for assistance with chest tube to [facility]. Return to [facility] on Sun11/18/[address] . - Enlargement of lymph nodes 12/20/2006 - Esophagitis, unspecified - Hemorrhage of gastrointestinal tract, unspecified - Hyperreflexia 08/02/2011 - Hypertension - Hypoxia 11/14/2014 Desat study done 11/14/14: Home oxygen needed (2 L/min via real al cannula with exertion and while sleeping). A face to face encounter was performed during this hospital admission regarding the need for oxygen . The patient verbalized understanding and consents to this therapy. - LVATS ODALIS Lobectomy 11/05/2014 74 year old never smoker who had a nodule identified on a sc reening scan in the past due to a family concern regarding asbestosis. Th e nodule slowly grew from 1.0 to 1.5 cm in about 6yrs. 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 On 11/10/14, Dr. Villagomez performed video assisted left upper lobectomy. Ramirez drain removed POD 4, air leak in CT Plan: -Chest tube to heimlich valve. Monitor air leak and daily yields. Discharge home with heimlich -Pain management -Out o f bed, cough, deep breathe, acapella, frequent ambulation. -Carb controlle d diet . - Migraines 11/11/2014 - Orthostatic hypotension vasovagal syncope - Osteoporosis, unspecified - Snoring - Tendonitis of ankle, right 05/03/2011 - Type II or unspecified type diabetes mellitus without ment ion of complication, not stated as uncontrolled 02/07/2010 - Urge urinary incontinence 12/16/2013 - Variants of migraine, not elsewhere classified, without me ntion of intractable migraine without mention of status migrainosus Social History Tobacco Use - Smoking status: Never Smoker - Smokeless tobacco: Never Used Substance Use Topics - Alcohol use: Yes Comment: 2-3 drinks/years - Drug use: No ASSESSMENT/PLAN: 1. Acute post-traumatic headache, not intractable - ICD9: 33 9.21, ICD10: G44.319 (primary diagnosis) - CT BRAIN WO IVCON 2. Facial pain - ICD9: 784.0, ICD10: R51 - CT BRAIN WO IVCON 3. Blurry vision, left eye - ICD9: 368.8, ICD10: H53.8 She reports falling out of bed headfirst yesterday striking furniture and walker and has continued with left-sided headache and blurry vision persisting since that time. She notes feeling wobbly or off balance when walking, this i s a change from baseline since the fall. - CT BRAIN WO IVCON- today if possible For now recommend that she rest her body get plenty of sleep , avoid heavy exertion. Rest her brain, avoid activities require concentra tion. Naproxen as needed for pain, take PPI to avoid GI upset. Advised to call and let us know if severe or concerning symp toms / need for ER visit if occur: such as nausea vomiting, severe heada vandana or headache that gets worse, seizure, trouble walking or talkin g, increased vision changes, increased weakness or loss of bowel or bladd er control, or trouble waking up from. These should be addressed right away . Clarence Berry APRN.BUSINESS ANALYSIS PROFESSIONAL ct brain wo ivcon o n 2020-04-26 CT BRAIN WO * * *Final Report* * * Normal 04-26 [facility] IVCON DATE OF EXAM: Apr 26 2020 4:04PM [place] ([id number]) [facility] 0504 - CT BRAIN WO IVCON / PROCEDURE REASON: multiple diagnoses * * * * Physician Interpretation * * * * EXAMINATION: CT BRAIN WO IVCON CLINICAL HISTORY: Head trauma, headache. Acute post-traumati c headache, not intractable Facial pain Blurry vision, left eye . TECHNIQUE: Serial axial images without IV contrast were obta ined from the vertex to the foramen magnum. MQ: [id number] CT Dose-Length Product (DLP): 654 mGy*cm CT Dose Reduction Employed: No dose reduction techniques wer e required COMPARISON: 11/09/2015 brain MRI without contrast 07/28/[address] RESULT: Post-operative change: None. Acute change: No evidence of an acute infarct or other acute parenchymal process. Hemorrhage: No evidence of acute intracranial hemorrhage. Mass Lesion / Mass Effect: There is no evidence of an intrac ranial mass or extraaxial fluid collection. No significant mass effect. Chronic change: Patchy foci of low attenuation coefficient a re present within the supratentorial white matter which is a nonspecifi c finding but likely represents moderate microvascular ischemia. Remote la cunar infarct in the left lentiform nucleus. Atherosclerotic calci fications in the distal intracranial ICAs and proximal intracranial verte bral arteries. Parenchyma: There is no significant volume loss. The brain p arenchyma is otherwise within normal limits for age. Ventricles: The ventricles are within normal limits of size and configuration for age. Paranasal sinuses and skull base: The visualized paranasal s inuses are grossly clear. Bilateral pseudophakia. The skull base and im aged soft tissues are unremarkable. Loom Checker (topogram) images: No additional findings. IMPRESSION: No acute intracranial abnormality. Moderate burden of presumed chronic microvascular ischemic c hanges and remote left lacunar infarct in the left lentiform nucleus. Limnology Teacher: ABHILASH Transcribe Date/Time: Apr 26 2020 4:08P Dictated by : JOSÉ MIGUEL JOSHI MD This examination was interpreted and the report reviewed and electronically signed by: JOSÉ MIGUEL JOSHI MD on Apr 26 2020 4:12PM EST [id number] [facility]04-26 [facility]) Normal 04-26-2020 [place] [facility] ANA IVORY ([id number]) 1940 [facility] Date Time Provider Department ([id number]) 04/26/20 [facility] During your visit today, we recorded the following informati on about you: Harlan Zarate LPN 04/26/2020 8:45 AM Signed Pt calls to state she had a fall at home getting out of bed yesterday morning. She states her foot was caught in the bl anket when she tried to get out of bed and fell sideways out of bed, but also states she does n't remember the fall. States she did strike the L side of her head just above her ear on the nightstand. Denies LOC. No headache, but pain where she hit her head. She does note some blurry vision in the L eye. Appt scheduled with OWNER OPERATOR for today. Harlan Berry APRN.BUSINESS ANALYSIS PROFESSIONAL 04/26/2020 12:16 PM Signed I think she would be best served with an in pers on visit if willing to do so, can add her to my schedule t aditya if she is willing, I do not think she would be best served by a [place] call. Yulisa Bills LPN 04/26/2020 12:43 PM Signed Spoke with patient and patie nt agrees to face to face appointment today at same time. Allergies As of Date: 04/26/2020 Noted Allergy Reaction ADHESIVE TAPE (ROSINS) 08/31/2008 4 - Hives Comments: Rash around bandaid never been tested for latex al lergy ASPIRIN 04/16/2018 15 - Contraindication-Medical [place]* Comments: GI bleed BONIVA (IBANDRONATE) 12/04/2008 8 - GI Upset Comments: Esophageal burning CARAFATE (SUCRALFATE) 04/24/2012 14 - Other: See Comments Comments: feels poorly CIPROFLOXACIN 12/01/2013 14 - Other: See Comments Comments: photosensitivity, dermatitis CODEINE 08/24/2005 8 - GI Upset IBUPROFEN 03/22/2006 8 - GI Upset IODINE 08/25/2008 11 - Vomiting LANSOPRAZOLE 11/01/2011 6 - Diarrhea METFORMIN 05/10/2011 6 - Diarrhea NEOSPORIN ([id number]*08/31/2008 2 - Rash Comments: blisters PROTONIX (PANTOPRAZOLE) 01/13/2010 6 - Diarrhea RELAFEN (NABUMETONE) 03/22/2006 8 - GI Upset 11 - Vomiting ACTOS (PIOGLITAZONE HCL) 12/03/2016 7 - Swelling Date Reviewed: 01/27/2020 Reviewed by: Cintia Macias LPN - Fully Assessed Reason for Visit: Fall [218] Prescriptions as of 04/26/2020 Sig: GABAPENTIN 300 MG CAPSULE Take 1 capsule by mouth twice* LORAZEPAM 1 MG TABLET TAKE 1/2 TO 1 TABLET BY MOUTH* PEN NEEDLE, DIABETIC 31 GAUGE* Use 1 needle for each dose. 4 * LANTUS SOLOSTAR U-100 INSULIN* Inject 24 Units subcutaneousl * LANCETS Micro-lancets to work with cu* KETOCONAZOLE 2 % TOPICAL CREAM Apply 1 application to affect * CAPSAICIN 0.025 % TOPICAL CRE* Apply 3 application to affect * CRANBERRY PLUS VITAMIN C 140 * Patient takes Cranberry with * BIOTIN 2,500 MCG CAPSULE Nurse reports patient taking * ASPIRIN 81 MG TABLET,DELAYED * Take 81 mg by mouth once paola * ATORVASTATIN 20 MG TABLET Take 1 tablet by mouth once d* MIRABEGRON ER 50 MG TABLET,EX* Take 1 tablet by mouth twice * INSULIN ASPART (U-100) 100 UN* Inject 8 Units subcutaneously * GLIMEPIRIDE 2 MG TABLET Take 1 tablet by mouth twice * SERTRALINE 50 MG TABLET Take 1 tablet by mouth once d* PREMARIN 0.625 MG/GRAM VAGINA* APPLY 0.5 GRAMS VAGINALLY BEF * CEPHALEXIN 250 MG TABLET Take 1 tablet by mouth daily * Patient not taking: Reported on 01/27/2020 OXYBUTYNIN CHLORIDE ER 10 MG * Take 1 tablet by mouth twice * MISCELLANEOUS MEDICAL SUPPLY * Custom Orthotics (E08.40, Z* METOPROLOL SUCCINATE ER 200 M* Take 1 tablet by mouth once d * ESOMEPRAZOLE MAGNESIUM 40 MG * Take 1 capsule by mouth DAILY * BLOOD SUGAR DIAGNOSTIC STRIPS Check blood sugars 2x per day* PRESERVISION AREDS-2 ORAL Take by mouth twice daily. CHOLECALCIFEROL (VITAMIN D3) * Take 2 capsules by mouth once * SUMATRIPTAN 50 MG TABLET Take 1 tablet by mouth. at on* Patient not taking: Reported on 01/27/2020 COMPOUNDED PRESCRIPTION Custom orthotics (E08.40, Z7* BLOOD SUGAR DIAGNOSTIC STRIPS Test blood sugar(s) 2 times d* LANCETS Test blood sugar(s) 2 times * BLOOD-GLUCOSE METER KIT 1 Each as needed. One Touch M* LANCETS 1 Each twice daily. DX: 250.0* DAILY MULTIVITAMIN TABLET Take one(1) tablet daily. Problem List As Of Date 04/26/2020 Noted Resolved SPRAIN ROTATOR CUFF [S43.429A] 01/10/2003 03/03/2003 Complete rupture of rotator cuff [M75.120] 03/03/20032016 OSTEOPOROSIS NOS [M81.0] 02/19/2006 ALLERGIC RHINITIS NOS [J30.9] 03/06/2006 GENERAL OSTEOARTHROSIS [M15.9] 03/06/2006 Restless legs syndrome (RLS) [G25.81] 06/19/2006 LUMBAR DISC DISPLACEMENT [M51.26] More... Enlargement of lymph nodes [R59.9] 12/20/2006 08/15/2016 INSOMNIA NOS [G47.00] 04/30/2007 LUNG NODULE [R22.2] 09/05/2007 04/30/2015 STRICKLAND'S ESOPHAGUS [K22.70] Acute gastritis without mention of hemorrhage [*10/31/2007 0 09/15/2016 Pure hypercholesterolemia [E78.00] 12/14/2009 11/11/2014 Diabetes 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 condition w*02/07/2010 More... Anxiety [F41.9] 05/03/2011 More... Tendonitis of ankle, right [M77.51] 05/03/2011 08/15/2016 C. difficile diarrhea [A04.72] 10/18/2011 09/15/2016 Esophagitis, unspecified [K20.9] 11/23/2011 IBS (irritable bowel syndrome) [K58.9] 02/01/2012 More... Cataract [H26.9] 04/17/2013 09/15/2016 More... HTN (hypertension) [I10] 08/04/2013 More... Urge urinary incontinence [N39.41] 12/16/2013 Esophageal reflux [K21.9] 10/08/2014 10/08/2014 More... DVT prophylaxis [Z29.9] 11/11/2014 08/15/2016 More... DISPOSITION AND FOLLOW-UP [V999.01] 11/11/2014 08/15/2016 More... Migraines [G43.909] 11/11/2014 More... Hypoxia [R09.02] 11/14/2014 09/15/2016 More... 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 Mouth dryness [R68.2] 11/06/2016 Hyperlipidemia [E78.5] 11/06/2016 Functional dyspepsia [K30] 08/20/2017 More... 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 Gastroesophageal reflux disease with esophagiti*08/20/2017 More... 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 Encounter Status:Closed by YULISA BILLS LPN on 04/26/20 cnov on 2020-04-26 CNOV Office Visit (INTMWS) Normal 04-26-20 [place] [facility] ANA IVORY ([id number]) 1940 [facility] Date Time Provider Department ([id number]) 04/26/20 2:20 PM CLARENCE BERRY (LOLI) INTMWS During your visit today, we recorded the following informati on about you: Pulse Respiration Blood pressure Weight 64/minute 16/minute 124/60 59.4 kg Clarence Berry APRN.CNS 04/26/2020 3:26 PM Signed SUBJECTIVE: Ana Ivory is a 80 year old female. HEPATITIS C SCREENING due on 1958 ADVANCE DIRECTIVE DISCUSSION due on 09/25/2013 BP CONTROLLED (<130/80) due on 04/25/2020 HPI Ana Ivory called the office this morning to advise she had a fall at home getting out of bed yesterday morning. States her foot w as caught in a blanket when she tried to get back fell sideways out o f bed. Also states she does not recall falling. States she did strike t he left side of her head just above the ER nightstand. States no loss of consciousne ss. Has pain where she hit her head. No headache reported. Notes some b lurry vision in the left eye. Today reports she does not r ecall arising from bed, she awoke on the floor with her foot elevated on the bed, head down, left side of head and neck struck the bedside table and walker. No report of L OC. Notes that since the fall the left side of her head head and le ft side of jaw and neck hurts, hit walker. One foot caught in sheet on bed. Lying on ground when found. Prodrome:no, perhaps not awake and rolled out of bed, she is not sure Loss of consciousness: No Nausea: No Vomiting: No Vision change:yes, blurry vision left eye since the fall Speech change: no change from baseline, no trouble talking Mobility change: Notes feeling wobbly or off balance since the fall, walking with walker Headache: Yes Seizure: No Loss of bowel or bladder control: No Obtunded: No OAC: no Review of Systems Constitutional: Negative for fever. Respiratory: Negative. Cardiovascular: Negative. Musculoskeletal: Positive for arthralgias, gait problem, ora lgias and neck pain. Neurological: Positive for headaches. Psychiatric/Behavioral: Negative for confusion. Objective Physical Exam Vitals signs and nursing note reviewed. Constitutional: General: She is not in acute distress. Appearance: Normal appearance. She is not ill-appearing or d iaphoretic. HENT: Head: Normocephalic. No raccoon eyes or left periorbital oniel thema. Jaw: Tenderness present. No swelling. Comments: Tender to palpation left side of face from jaw t o confucianism, no step off or deformity appreciated on palpation, jaw mobilit y intact, left lateral neck tender to palpation, ROM neck preserved / at baseline Eyes: General: Lids are normal. No visual field deficit. Left eye: No foreign body or discharge. Extraocular Movements: Extraocular movements intact. Left eye: Normal extraocular motion and no nystagmus. Conjunctiva/sclera: Conjunctivae normal. Left eye: Left conjunctiva is not injected. No hemorrhage. Pupils: Pupils are equal, round, and reactive to light. Cardiovascular: Rate and Rhythm: Normal rate and regular rhythm. Heart sounds: Normal heart sounds. Pulmonary: Effort: Pulmonary effort is normal. Breath sounds: Normal breath sounds. Neurological: General: No focal deficit present. Mental Status: She is alert and oriented to person, place, a nd time. Cranial Nerves: Cranial nerves are intact. No facial asymmet ry. Sensory: Sensation is intact. No sensory deficit. Coordination: Romberg sign negative. Comments: slow ataxic gait ALLERGIES Allergen Reactions - Adhesive Tape (Chapis* Hives Rash around bandaid never been tested for latex allergy - Aspirin Contraindication-Medical Surgical GI bleed - Boniva [Ibandronate] GI Upset Esophageal burning - Carafate [Sucralfat* Other: See Comments feels poorly - Ciprofloxacin Other: See Comments photosensitivity, dermatitis - Codeine GI Upset - Ibuprofen GI Upset - Iodine Vomiting - Lansoprazole Diarrhea - Metformin Diarrhea - Neosporin [Neomycin* Rash blisters - Protonix [Pantopraz* Diarrhea - Relafen [Nabumetone] GI Upset, Vomiting - Actos [Pioglitazone* Swelling gabapentin (NEURONTIN) 300 mg capsule Take 1 cap jasbir by mouth twice daily for 180 days. Morning and bedtime LORazepam (ATIVAN) 1 mg tablet TAKE 1/2 TO 1 TABLET BY MOUTH EVERY DAY NEEDED FOR FOR ANXIETY Insulin Troy, Disposable, (EASY TOUCH) 31 gauge x 3/16 Use 1 needle for each dose. 4x daily insulin glargine (LANTUS SOLOSTAR U-100 INSULIN) 100 unit/mL (3 mL) Inject 24 Units subcutaneously daily at bedtime. Lancets lancets Micro-lancet s to work with current meter - One touch. Sig: Test blood sugar(s) 2 times daily. Dx: Type 2 DM - Co ntrolled E11.9 , Insulin: Yes ketoconazole (NIZORAL) 2 % cream Apply 1 application to af fected area twice daily. Continue for 1 week after rash resolves. capsaicin (ZOSTRIX) 0.025 % cream Apply 3 application to affected area three times daily. January 27, 2020 states not using Cranberry-Vitamin C-Vitamin E (CRANBERRY PLUS VITAMIN C) 140-100 mg cap Patient takes Cranberry with Vitamin C capsule that contains 1 5,000 mg Cranberry and 100mg Vitamin C Biotin 2,500 mcg cap Nurse reports patient taking 1500 mcg d ose once daily (cannot find 1500mcg dose on menu) aspirin, enteric coated (ASP IRIN, ENTERIC COATED) 81 mg EC tablet Take 81 mg by mouth once daily. atorvastatin (LIPITOR) 20 mg tablet Take 1 tablet by mouth o nce daily. mirabegron (MYRBETRIQ) 50 mg Tb24 Take 1 tablet by mouth twi ce daily. insulin aspart U-100 (NOVOLOG FLEXPEN U- 100 INSULIN) 100 unit/mL (3 mL) Inject 8 Units subcutaneously twice daily with meals. Adjust as dir ected glimepiride (AMARYL) 2 mg ta blet Take 1 tablet by mouth twice daily with meals. sertraline (ZOLOFT) 50 mg tablet Take 1 tablet by mouth once daily. PREMARIN vaginal cream APPLY 0.5 GRAMS V AGINALLY BEFORE BED EVERY NIGHT FOR 14 DAYS THEN USE TWICE A WEEK FOR 3 MONTHS Cephalexin 250 mg tab Take 1 tablet by mouth daily at bedt dinorah. (Dr Don) oxybutynin ER (DITROPAN XL) 10 mg 24 hr tablet Take 1 tabl et by mouth twice daily. (Dr Don) [facility] (E08.40 , Z79.4) Diabetes 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 condition with diabet ic neuropathy, with long-term current use of insulin metoprolol succinate ER (TOPROL XL) 200 mg 24 hr tablet Take 1 tablet by mouth once daily. esomeprazole (NEXIUM) 40 mg capsule Take 1 capsule by mouth DAILY (6 AM). blood sugar diagnostic (EASY TOUCH TEST STRIP) test strip Check blood sugars 2x per day and as needed Dx: E11.9 insulin: yes vit C/E/Zn/coppr/lutein/zeaxan (PRESERVI SRINATH AREDS-2 ORAL) Take by mouth twice daily. Cholecalciferol, Vitamin D3, 1,000 unit cap Take 2 capsules by mouth once daily. SUMAtriptan (IMITREX) 50 mg tablet Take 1 tablet by mouth. a t onset of headache. May take another tablet as needed one hour later. COMPOUNDED PRESCRIPTION Custom orthotics (E08.40, Z79.4) 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, with long-term current use of insulin blood sugar diagnostic (ONETOUCH ULTRA TEST) abhijit t strip Test blood sugar(s) 2 times daily. Dx: Type 2 DM - Controlled E11.9 Insulin: Yes Lancets (ONETOUCH ULTRASOFT LANCETS) lancets Test blood suga r(s) 2 times daily. Dx: Type 2 DM - Controlled E11.9 , Insulin: Yes Blood-Glucose Meter (ONETOUCH ULTRA2) monitoring kit 1 Each as needed. One Touch Meter Kit Diagnosis: Type 2 DM - Controlled E11.9 Lancets (EASY TOUCH LANCETS) lancets 1 Each twice daily. D X: 250.00 insulin multivitamins(DAILY MULTIVITAMIN TAB) Take one(1) tablet danuta ly. 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 difficile diarrhea 10/18/2011 - Cataract 04/17/2013 [facility], Dr. Dada johnson Mild cataract in L eye- no need for cataract surgery at this time. Continue to follow up the cat aract. 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 At thi s time, we anticipate that the patient will be discharged home once c linically stable. Plan: - Discuss needs with patient. - Collaborate with Case management to facilitate DC process - Will continue to evaluate during the post op period. - Desat study 11/14/14: patient will need home oxygen (2 L with exertion only) - Discharge home today with [facility] care for assistance with chest tube to Heimlich. Return to [facility] on Sunday11/18/[address] . - Enlargement of lymph nodes 12/20/2006 - Esophagitis, unspecified - Hemorrhage of gastrointestinal tract, unspecified - Hyperreflexia 08/02/2011 - Hypertension - Hypoxia 11/14/2014 Desat study done 11/14/14: Home oxygen needed (2 L/min via n irene cannula with exertion and while sleeping). A face to face encounter was performed during this hospital admission regarding the need for o xygen. The patient verbalized understanding and consents to this therapy. - LVATS ODALIS Lobectomy 11/05/2014 74 year old never smoker who had a nodule identified on a screening scan in the past due to a family concern regarding asbes tosis. The nodule slowly grew from 1.0 to 1.5 cm in about 6yrs. 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 On 11/10/14 , Dr. Villagomez performed video assisted left upper lobectomy. Ramirez drain removed POD 4, air l eak in CT Plan: -Chest tube to heimlich valve. Monitor air leak and daily yields. Discharge home with heimlich -Pain management -Out of bed, c ough, deep breathe, acapella, frequent ambulation. -Carb controlled diet . - Migraines 11/11/2014 - Orthostatic hypotension vasovagal syncope - Osteoporosis, unspecified - Snoring - Tendonitis of ankle, right 05/03/2011 - Type II or unspecified type diabetes mellitus without ment ion of complication, not stated as uncontrolled 02/07/2010 - Urge urinary incontinence 12/16/2013 - Variants of migraine, not elsewhere classified, without me ntion of intractable migraine without mention of status migrainosus Social History Tobacco Use - Smoking status: Never Smoker - Smokeless tobacco: Never Used Substance Use Topics - Alcohol use: Yes Comment: 2-3 drinks/years - Drug use: No ASSESSMENT/PLAN: 1. Acute post-traumatic headache, not intractable - ICD9: 33 9.21, ICD10: G44.319 (primary diagnosis) - CT BRAIN WO IVCON 2. Facial pain - ICD9: 784.0, ICD10: R51 - CT BRAIN WO IVCON 3. Blurry vision, left eye - ICD9: 368.8, ICD10: H53.8 She reports falling out of bed headfirst yesterday striking furniture and walker and has continued with left-sided headache and blurry vision persisting since that time. She notes feeling wobbly or off balance when walking, this is a change from baseline since the fall. - CT BRAIN WO IVCON- today if possible For now recommend that she rest her body get plenty of sleep , avoid heavy exertion. Rest her brain, avoid activities requi re concentration. Naproxen as needed for pain, take PPI to avoid GI upset. Advised to call and let us know if sever e or concerning symptoms / need for ER visit if occur: such as nausea vomiting, severe headache or headache that gets worse, seizure, trouble walk ing or talking, increased vision changes, increased weakness or loss of bowel or bladder con trol, or trouble waking up from. These should be addressed right away. Clarence Berry APRN.BUSINESS ANALYSIS PROFESSIONAL Clarence Berry APRN.CNS 04/26/2020 3:06 PM Addendum Check your vision at yor earliest convenience Referring Provider: SELF [[id number]] Allergies As of Date: 04/26/2020 Noted Allergy Reaction ADHESIVE TAPE (ROSINS) 08/31/2008 4 - Hives Comments: Rash around bandaid never been tested for latex al lergy ASPIRIN 04/16/2018 15 - Contraindication-Medical [place]* Comments: GI bleed BONIVA (IBANDRONATE) 12/04/2008 8 - GI Upset Comments: Esophageal burning CARAFATE (SUCRALFATE) 04/24/2012 14 - Other: See Comments Comments: feels poorly CIPROFLOXACIN 12/01/2013 14 - Other: See Comments Comments: photosensitivity, dermatitis CODEINE 08/24/2005 8 - GI Upset IBUPROFEN 03/22/2006 8 - GI Upset IODINE 08/25/2008 11 - Vomiting LANSOPRAZOLE 11/01/2011 6 - Diarrhea METFORMIN 05/10/2011 6 - Diarrhea NEOSPORIN ([id number]*08/31/2008 2 - Rash Comments: blisters PROTONIX (PANTOPRAZOLE) 01/13/2010 6 - Diarrhea RELAFEN (NABUMETONE) 03/22/2006 8 - GI Upset 11 - Vomiting ACTOS (PIOGLITAZONE HCL) 12/03/2016 7 - Swelling Date Reviewed: 04/26/2020 Reviewed by: Yulisa Bills LPN - Fully Assessed Reason for Visit: Fall [218] Primary Visit Diagnosis:Acut e post-traumatic headache, not intractable [G44.319] Other Visit Diagnoses:Facial pain [R51] Blurry vision, left eye [H53.8] Order(s):CT BRAIN WO IVCON [[id number]] Order #: [id number] FUT URE Prescriptions as of 04/26/2020 Sig: GABAPENTIN 300 MG CAPSULE Take 1 capsule by mouth twice* Patient taking differently: Take 300 mg by mouth daily at* LORAZEPAM 1 MG TABLET TAKE 1/2 TO 1 TABLET BY MOUTH* PEN NEEDLE, DIABETIC 31 GAUGE* Use 1 needle for each dose. 4 * LANTUS SOLOSTAR U-100 INSULIN* Inject 24 Units subcutaneousl * LANCETS Micro-lancets to work with cu* KETOCONAZOLE 2 % TOPICAL CREAM Apply 1 application to affect * CAPSAICIN 0.025 % TOPICAL CRE* Apply 3 application to affect * CRANBERRY PLUS VITAMIN C 140 * Patient takes Cranberry with * BIOTIN 2,500 MCG CAPSULE Nurse reports patient taking * ASPIRIN 81 MG TABLET,DELAYED * Take 81 mg by mouth once paola * ATORVASTATIN 20 MG TABLET Take 1 tablet by mouth once d* MIRABEGRON ER 50 MG TABLET,EX* Take 1 tablet by mouth twice * INSULIN ASPART (U-100) 100 UN* Inject 8 Units subcutaneously * SERTRALINE 50 MG TABLET Take 1 tablet by mouth once d* PREMARIN 0.625 MG/GRAM VAGINA* APPLY 0.5 GRAMS VAGINALLY BEF * OXYBUTYNIN CHLORIDE ER 10 MG * Take 1 tablet by mouth twice * METOPROLOL SUCCINATE ER 200 M* Take 1 tablet by mouth once d * ESOMEPRAZOLE MAGNESIUM 40 MG * Take 1 capsule by mouth DAILY * BLOOD SUGAR DIAGNOSTIC STRIPS Check blood sugars 2x per day* PRESERVISION AREDS-2 ORAL Take by mouth twice daily. CHOLECALCIFEROL (VITAMIN D3) * Take 2 capsules by mouth once * COMPOUNDED PRESCRIPTION Custom orthotics (E08.40, Z7* BLOOD SUGAR DIAGNOSTIC STRIPS Test blood sugar(s) 2 times d* LANCETS Test blood sugar(s) 2 times * BLOOD-GLUCOSE METER KIT 1 Each as needed. One Touch M* LANCETS 1 Each twice daily. DX: 250.0* DAILY MULTIVITAMIN TABLET Take one(1) tablet daily. GLIMEPIRIDE 2 MG TABLET Take 1 tablet by mouth twice * Patient not taking: Reported on 04/26/2020 CEPHALEXIN 250 MG TABLET Take 1 tablet by mouth daily * Patient not taking: Reported on 01/27/2020 MISCELLANEOUS MEDICAL SUPPLY * Custom Orthotics (E08.40, Z* SUMATRIPTAN 50 MG TABLET Take 1 tablet by mouth. at on* Patient not taking: Reported on 01/27/2020 Problem List As Of Date 04/26/2020 Noted Resolved SPRAIN ROTATOR CUFF [S43.429A] 01/10/2003 03/03/2003 Complete rupture of rotator cuff [M75.120] 03/03/20032016 OSTEOPOROSIS NOS [M81.0] 02/19/2006 ALLERGIC RHINITIS NOS [J30.9] 03/06/2006 GENERAL OSTEOARTHROSIS [M15.9] 03/06/2006 Restless legs syndrome (RLS) [G25.81] 06/19/2006 LUMBAR DISC DISPLACEMENT [M51.26] More... Enlargement of lymph nodes [R59.9] 12/20/2006 08/15/2016 INSOMNIA NOS [G47.00] 04/30/2007 LUNG NODULE [R22.2] 09/05/2007 04/30/2015 STRICKLAND'S ESOPHAGUS [K22.70] Acute gastritis without mention of hemorrhage [*10/31/2007 0 09/15/2016 Pure hypercholesterolemia [E78.00] 12/14/2009 11/11/2014 Diabetes 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 condition w*02/07/2010 More... Anxiety [F41.9] 05/03/2011 More... Tendonitis of ankle, right [M77.51] 05/03/2011 08/15/2016 C. difficile diarrhea [A04.72] 10/18/2011 09/15/2016 Esophagitis, unspecified [K20.9] 11/23/2011 IBS (irritable bowel syndrome) [K58.9] 02/01/2012 More... Cataract [H26.9] 04/17/2013 09/15/2016 More... HTN (hypertension) [I10] 08/04/2013 More... Urge urinary incontinence [N39.41] 12/16/2013 Esophageal reflux [K21.9] 10/08/2014 10/08/2014 More... DVT prophylaxis [Z29.9] 11/11/2014 08/15/2016 More... DISPOSITION AND FOLLOW-UP [V999.01] 11/11/2014 08/15/2016 More... Migraines [G43.909] 11/11/2014 More... Hypoxia [R09.02] 11/14/2014 09/15/2016 More... 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 Mouth dryness [R68.2] 11/06/2016 Hyperlipidemia [E78.5] 11/06/2016 Functional dyspepsia [K30] 08/20/2017 More... 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 Gastroesophageal reflux disease with esophagiti*08/20/2017 More... 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 Other instructions from your clinician: Check your vision at yor earliest convenience Encounter Status:Closed by CLARENCE LEVINE on 04/26/20 No panel information on 2020-04-26 [facility] ([id number]) obsolete on 2020-04 OBSOLETE Refill (MIQ) Normal 04-13-2020 [facility] ANA IVORY ([id number]) 1940 [place] Date Time Provider Department ([id number]) 04/13/20 ALICIA BLOUNT MIQ During your visit today, we recorded the following informati on about you: Eun Morris 04/13/2020 1:58 PM Signed Patient has been identified by name and date of : Yes Pending Prescriptions Disp Refills GABAPENTIN 300 MG CAPSULE 180 capsule 1 Sig: Take 1 capsule by mouth twice daily for 180 days. Morni ng and bedtime ABRAM: No LORAZEPAM 1 MG TABLET 30 tablet 2 Sig: TAKE 1/2 TO 1 TABLET BY MOUTH EVERY DAY NEEDED FOR F OR ANXIETY BULL Class: C-IV ABRAM: No RX INSTRUCTIONS: Patient aware RX will be sent to pharmacy. No need to notify patient. Eun Blount MD 04/14/2020 1:07 PM Signed Does patient want/need to reschedule the Apr 3 month follow up that was canceled due to template change? The following approved medic ation requests have been transmitted electronically. Signed Prescriptions Disp Refills gabapentin (NEURONTIN) 300 mg capsule 180 capsule 1 Sig: Take 1 capsule by mouth twice daily for 180 days. Morni ng and bedtime ABRAM: No Authorizing Provider: ALICIA BLOUNT LORazepam (ATIVAN) 1 mg tablet 30 tablet 2 Sig: TAKE 1/2 TO 1 TABLET BY MOUTH EVERY DAY NEEDED FOR F OR ANXIETY BULL Class: C-IV ABRAM: No Authorizing Provider: ALICIA BLOUNT MD Janice Curren LPN 04/16/2020 10:58 AM Signed Called pt she will just keep her Dec appt. She will call if she needs something else. Allergies As of Date: 04/13/2020 Noted Allergy Reaction ADHESIVE TAPE (ROSINS) 08/31/2008 4 - Hives Comments: Rash around bandaid never been tested for latex al lergy ASPIRIN 04/16/2018 15 - Contraindication-Medical [place]* Comments: GI bleed BONIVA (IBANDRONATE) 12/04/2008 8 - GI Upset Comments: Esophageal burning CARAFATE (SUCRALFATE) 04/24/2012 14 - Other: See Comments Comments: feels poorly CIPROFLOXACIN 12/01/2013 14 - Other: See Comments Comments: photosensitivity, dermatitis CODEINE 08/24/2005 8 - GI Upset IBUPROFEN 03/22/2006 8 - GI Upset IODINE 08/25/2008 11 - Vomiting LANSOPRAZOLE 11/01/2011 6 - Diarrhea METFORMIN 05/10/2011 6 - Diarrhea NEOSPORIN ([id number]*08/31/2008 2 - Rash Comments: blisters PROTONIX (PANTOPRAZOLE) 01/13/2010 6 - Diarrhea RELAFEN (NABUMETONE) 03/22/2006 8 - GI Upset 11 - Vomiting ACTOS (PIOGLITAZONE HCL) 12/03/2016 7 - Swelling Date Reviewed: 01/27/2020 Reviewed by: Cintia Macias LPN - Fully Assessed Reason for Visit: Refill Request [94] Visit Diagnoses: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, with long-term current use of insulin (HCC) [E08.40, Z79.4] Anxiety [F41.9] Order(s):gabapentin (NEURONTIN) 300 mg capsuleTake 1 capsu le by mouth twice daily for 180 days. Morning and bedtimeDisp: 180 capsuleRfl: 1 LORazepam (ATIVAN) 1 mg tabletTAKE 1/2 TO 1 TABLET BY MOUTH EVERY DAY NEEDED FOR FOR ANXIETYDisp: 30 tabletRfl: 2 Prescriptions as of 04/13/2020 Sig: GABAPENTIN 300 MG CAPSULE Take 1 capsule by mouth twice* LORAZEPAM 1 MG TABLET TAKE 1/2 TO 1 TABLET BY MOUTH* CODEINE 10 MG-GUAIFENESIN 100* Take 5 mL by mouth four times * PEN NEEDLE, DIABETIC 31 GAUGE* Use 1 needle for each dose. 4 * LANTUS SOLOSTAR U-100 INSULIN* Inject 24 Units subcutaneousl * LANCETS Micro-lancets to work with cu* KETOCONAZOLE 2 % TOPICAL CREAM Apply 1 application to affect * CAPSAICIN 0.025 % TOPICAL CRE* Apply 3 application to affect * CRANBERRY PLUS VITAMIN C 140 * Patient takes Cranberry with * BIOTIN 2,500 MCG CAPSULE Nurse reports patient taking * ASPIRIN 81 MG TABLET,DELAYED * Take 81 mg by mouth once paola * ATORVASTATIN 20 MG TABLET Take 1 tablet by mouth once d* MIRABEGRON ER 50 MG TABLET,EX* Take 1 tablet by mouth twice * INSULIN ASPART (U-100) 100 UN* Inject 8 Units subcutaneously * GLIMEPIRIDE 2 MG TABLET Take 1 tablet by mouth twice * SERTRALINE 50 MG TABLET Take 1 tablet by mouth once d* PREMARIN 0.625 MG/GRAM VAGINA* APPLY 0.5 GRAMS VAGINALLY BEF * CEPHALEXIN 250 MG TABLET Take 1 tablet by mouth daily * Patient not taking: Reported on 01/27/2020 OXYBUTYNIN CHLORIDE ER 10 MG * Take 1 tablet by mouth twice * MISCELLANEOUS MEDICAL SUPPLY * Custom Orthotics (E08.40, Z* METOPROLOL SUCCINATE ER 200 M* Take 1 tablet by mouth once d * ESOMEPRAZOLE MAGNESIUM 40 MG * Take 1 capsule by mouth DAILY * BLOOD SUGAR DIAGNOSTIC STRIPS Check blood sugars 2x per day* PRESERVISION AREDS-2 ORAL Take by mouth twice daily. CHOLECALCIFEROL (VITAMIN D3) * Take 2 capsules by mouth once * SUMATRIPTAN 50 MG TABLET Take 1 tablet by mouth. at on* Patient not taking: Reported on 01/27/2020 COMPOUNDED PRESCRIPTION Custom orthotics (E08.40, Z7* BLOOD SUGAR DIAGNOSTIC STRIPS Test blood sugar(s) 2 times d* LANCETS Test blood sugar(s) 2 times * BLOOD-GLUCOSE METER KIT 1 Each as needed. One Touch M* LANCETS 1 Each twice daily. DX: 250.0* DAILY MULTIVITAMIN TABLET Take one(1) tablet daily. Problem List As Of Date 04/13/2020 Noted Resolved SPRAIN ROTATOR CUFF [S43.429A] 01/10/2003 03/03/2003 Complete rupture of rotator cuff [M75.120] 03/03/20032016 OSTEOPOROSIS NOS [M81.0] 02/19/2006 ALLERGIC RHINITIS NOS [J30.9] 03/06/2006 GENERAL OSTEOARTHROSIS [M15.9] 03/06/2006 Restless legs syndrome (RLS) [G25.81] 06/19/2006 LUMBAR DISC DISPLACEMENT [M51.26] More... Enlargement of lymph nodes [R59.9] 12/20/2006 08/15/2016 INSOMNIA NOS [G47.00] 04/30/2007 LUNG NODULE [R22.2] 09/05/2007 04/30/2015 STRICKLAND'S ESOPHAGUS [K22.70] Acute gastritis without mention of hemorrhage [*10/31/2007 0 09/15/2016 Pure hypercholesterolemia [E78.00] 12/14/2009 11/11/2014 Diabetes 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 condition w*02/07/2010 More... Anxiety [F41.9] 05/03/2011 More... Tendonitis of ankle, right [M77.51] 05/03/2011 08/15/2016 C. difficile diarrhea [A04.72] 10/18/2011 09/15/2016 Esophagitis, unspecified [K20.9] 11/23/2011 IBS (irritable bowel syndrome) [K58.9] 02/01/2012 More... Cataract [H26.9] 04/17/2013 09/15/2016 More... HTN (hypertension) [I10] 08/04/2013 More... Urge urinary incontinence [N39.41] 12/16/2013 Esophageal reflux [K21.9] 10/08/2014 10/08/2014 More... DVT prophylaxis [Z29.9] 11/11/2014 08/15/2016 More... DISPOSITION AND FOLLOW-UP [V999.01] 11/11/2014 08/15/2016 More... Migraines [G43.909] 11/11/2014 More... Hypoxia [R09.02] 11/14/2014 09/15/2016 More... 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 Mouth dryness [R68.2] 11/06/2016 Hyperlipidemia [E78.5] 11/06/2016 Functional dyspepsia [K30] 08/20/2017 More... 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 Gastroesophageal reflux disease with esophagiti*08/20/2017 More... 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 Prescriptions ordered this encounter Disp Refills Start End GABAPENTIN 300 MG CAPSULE 180 * 1 04/14/2020 10/11/2020 Route: ORAL Sig: Take 1 capsule by mouth twice daily for 180 days. Morni ng and bedtime LORAZEPAM 1 MG TABLET 30 t* 2 04/14/2020 07/13/2020 Sig: TAKE 1/2 TO 1 TABLET BY MOUTH EVERY DAY NEEDED FOR F OR ANXIETY Medications Discontinued During This Encounter Prescriptions - gabapentin (NEURONTIN) 300 mg capsule (Discontinued) Take 1 capsule by mouth twice daily for 180 days. Morning an d bedtime - LORazepam (ATIVAN) 1 mg tablet (Discontinued) TAKE 1/2 TO 1 TABLET BY MOUTH EVERY DAY NEEDED FOR FOR AN XIETY Encounter Status:Closed by RIDDHI MARIE LPN on 04/16/20 obsolete on 2020-03 OBSOLETE Refill (INTMWS) Normal 04-02-2020 [facility] ANA IVORY ([id number]) 1940 [facility] Date Time Provider Department ([id number]) 04/02/20 ALICIA BLOUNT INTMWS During your visit today, we recorded the following informati on about you: Libertad Burdick [facility] 04/02/2020 9:33 AM Signed Patient has been identified by name and date of : Yes Pending Prescriptions Disp Refills PEN NEEDLE, DIABETIC 31 GAUGE X 3/16 Sig: Use 1 needle for each dose. 4 times daily ABRAM: No RX INSTRUCTIONS: Patient stated she is using 4 needles per d ay - please increase the prescription. Please send today. Patient aware RX will be sent to pharmacy. No need to notify patient. Libertad Anthonying Pss Allergies As of Date: 04/02/2020 Noted Allergy Reaction ADHESIVE TAPE (ROSINS) 08/31/2008 4 - Hives Comments: Rash around bandaid never been tested for latex al lergy ASPIRIN 04/16/2018 15 - Contraindication-Medical [place]* Comments: GI bleed BONIVA (IBANDRONATE) 12/04/2008 8 - GI Upset Comments: Esophageal burning CARAFATE (SUCRALFATE) 04/24/2012 14 - Other: See Comments Comments: feels poorly CIPROFLOXACIN 12/01/2013 14 - Other: See Comments Comments: photosensitivity, dermatitis CODEINE 08/24/2005 8 - GI Upset IBUPROFEN 03/22/2006 8 - GI Upset IODINE 08/25/2008 11 - Vomiting LANSOPRAZOLE 11/01/2011 6 - Diarrhea METFORMIN 05/10/2011 6 - Diarrhea NEOSPORIN ([id number]*08/31/2008 2 - Rash Comments: blisters PROTONIX (PANTOPRAZOLE) 01/13/2010 6 - Diarrhea RELAFEN (NABUMETONE) 03/22/2006 8 - GI Upset 11 - Vomiting ACTOS (PIOGLITAZONE HCL) 12/03/2016 7 - Swelling Date Reviewed: 01/27/2020 Reviewed by: Cintia Macias LPN - Fully Assessed Reason for Visit: Refill Request [94] Order(s):Insulin Troy, Disposable, (EASY TOUCH) 31 gauge x 3/16Use 1 needle for each dose. 4x dailyDisp: 360 EachRfl: 3 Prescriptions as of 04/02/2020 Sig: PEN NEEDLE, DIABETIC 31 GAUGE* Use 1 needle for each dose. 4 * LANTUS SOLOSTAR U-100 INSULIN* Inject 24 Units subcutaneousl * LANCETS Micro-lancets to work with cu* KETOCONAZOLE 2 % TOPICAL CREAM Apply 1 application to affect * CAPSAICIN 0.025 % TOPICAL CRE* Apply 3 application to affect * CRANBERRY PLUS VITAMIN C 140 * Patient takes Cranberry with * BIOTIN 2,500 MCG CAPSULE Nurse reports patient taking * ASPIRIN 81 MG TABLET,DELAYED * Take 81 mg by mouth once paola * ATORVASTATIN 20 MG TABLET Take 1 tablet by mouth once d* LORAZEPAM 1 MG TABLET TAKE 1/2 TO 1 TABLET BY MOUTH* MIRABEGRON ER 50 MG TABLET,EX* Take 1 tablet by mouth twice * INSULIN ASPART (U-100) 100 UN* Inject 8 Units subcutaneously * GABAPENTIN 300 MG CAPSULE Take 1 capsule by mouth twice* GLIMEPIRIDE 2 MG TABLET Take 1 tablet by mouth twice * SERTRALINE 50 MG TABLET Take 1 tablet by mouth once d* PREMARIN 0.625 MG/GRAM VAGINA* APPLY 0.5 GRAMS VAGINALLY BEF * CEPHALEXIN 250 MG TABLET Take 1 tablet by mouth daily * Patient not taking: Reported on 01/27/2020 OXYBUTYNIN CHLORIDE ER 10 MG * Take 1 tablet by mouth twice * MISCELLANEOUS MEDICAL SUPPLY * Custom Orthotics (E08.40, Z* METOPROLOL SUCCINATE ER 200 M* Take 1 tablet by mouth once d * ESOMEPRAZOLE MAGNESIUM 40 MG * Take 1 capsule by mouth DAILY * BLOOD SUGAR DIAGNOSTIC STRIPS Check blood sugars 2x per day* PRESERVISION AREDS-2 ORAL Take by mouth twice daily. CHOLECALCIFEROL (VITAMIN D3) * Take 2 capsules by mouth once * SUMATRIPTAN 50 MG TABLET Take 1 tablet by mouth. at on* Patient not taking: Reported on 01/27/2020 COMPOUNDED PRESCRIPTION Custom orthotics (E08.40, Z7* BLOOD SUGAR DIAGNOSTIC STRIPS Test blood sugar(s) 2 times d* LANCETS Test blood sugar(s) 2 times * BLOOD-GLUCOSE METER KIT 1 Each as needed. One Touch M* LANCETS 1 Each twice daily. DX: 250.0* DAILY MULTIVITAMIN TABLET Take one(1) tablet daily. Problem List As Of Date 04/02/2020 Noted Resolved SPRAIN ROTATOR CUFF [S43.429A] 01/10/2003 03/03/2003 Complete rupture of rotator cuff [M75.120] 03/03/20032016 OSTEOPOROSIS NOS [M81.0] 02/19/2006 ALLERGIC RHINITIS NOS [J30.9] 03/06/2006 GENERAL OSTEOARTHROSIS [M15.9] 03/06/2006 Restless legs syndrome (RLS) [G25.81] 06/19/2006 LUMBAR DISC DISPLACEMENT [M51.26] More... Enlargement of lymph nodes [R59.9] 12/20/2006 08/15/2016 INSOMNIA NOS [G47.00] 04/30/2007 LUNG NODULE [R22.2] 09/05/2007 04/30/2015 STRICKLAND'S ESOPHAGUS [K22.70] Acute gastritis without mention of hemorrhage [*10/31/2007 0 09/15/2016 Pure hypercholesterolemia [E78.00] 12/14/2009 11/11/2014 Diabetes 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 condition w*02/07/2010 More... Anxiety [F41.9] 05/03/2011 More... Tendonitis of ankle, right [M77.51] 05/03/2011 08/15/2016 C. difficile diarrhea [A04.72] 10/18/2011 09/15/2016 Esophagitis, unspecified [K20.9] 11/23/2011 IBS (irritable bowel syndrome) [K58.9] 02/01/2012 More... Cataract [H26.9] 04/17/2013 09/15/2016 More... HTN (hypertension) [I10] 08/04/2013 More... Urge urinary incontinence [N39.41] 12/16/2013 Esophageal reflux [K21.9] 10/08/2014 10/08/2014 More... DVT prophylaxis [Z29.9] 11/11/2014 08/15/2016 More... DISPOSITION AND FOLLOW-UP [V999.01] 11/11/2014 08/15/2016 More... Migraines [G43.909] 11/11/2014 More... Hypoxia [R09.02] 11/14/2014 09/15/2016 More... 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 Mouth dryness [R68.2] 11/06/2016 Hyperlipidemia [E78.5] 11/06/2016 Functional dyspepsia [K30] 08/20/2017 More... 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 Gastroesophageal reflux disease with esophagiti*08/20/2017 More... 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 Prescriptions ordered this encounter Disp Refills Start End PEN NEEDLE, DIABETIC 31 GAUGE X 10/26 360 * 3 04/02/2020 Sig: Use 1 needle for each dose. 4x daily Medications Discontinued During This Encounter Prescriptions - Insulin Troy, Disposabl e, (EASY TOUCH) 31 gauge x 16 ndle (Discontinued) Use 1 needle for each dose. 2x daily Encounter Status:Closed by CLARENCE LEVINE [facility]02[facility]) Normal 04-02-2020 [place] [facility] ANA IVORY ([id number]) 1940 [facility] Date Time Provider Department ([id number]) 04/02/20 ALICIA BLOUNT INTWS During your visit today, we recorded the following informati on about you: Libertad Burdick [facility] 04/02/2020 9:36 AM Signed Ana Ivory is calling Alicia daniels MD today to request the following medication, not on her current list, please send to [facility]: codeine-guaiFENesin (VIRTUSSIN AC) 10-10 0 mg/5 mL syrup. Please notify patient once completed. Patient has been identified by name and birthdate. Duration of symptoms: N/A Person calling: self Call patient at: at home [phone] (home) [phone] (cell) Was an appointment scheduled: No Closing statement: Results or non-symptom based questions: Thank you for calling [facility], your call will be returned within the next business day. Libertad Burdick Pss Clarence Berry APRN.BUSINESS ANALYSIS PROFESSIONAL 04/06/2020 7:29 AM Signed Rx sent. PDMP website checked and validated. All prescrip tions have been APPROPRIATELY filled. No suspicious activity was identified. 04/06/2020 by Clarence Berry APRN.BUSINESS ANALYSIS PROFESSIONAL Allergies As of Date: 04/02/2020 Noted Allergy Reaction ADHESIVE TAPE (ROSINS) 08/31/2008 4 - Hives Comments: Rash around bandaid never been tested for latex al lergy ASPIRIN 04/16/2018 15 - Contraindication-Medical [place]* Comments: GI bleed BONIVA (IBANDRONATE) 12/04/2008 8 - GI Upset Comments: Esophageal burning CARAFATE (SUCRALFATE) 04/24/2012 14 - Other: See Comments Comments: feels poorly CIPROFLOXACIN 12/01/2013 14 - Other: See Comments Comments: photosensitivity, dermatitis CODEINE 08/24/2005 8 - GI Upset IBUPROFEN 03/22/2006 8 - GI Upset IODINE 08/25/2008 11 - Vomiting LANSOPRAZOLE 11/01/2011 6 - Diarrhea METFORMIN 05/10/2011 6 - Diarrhea NEOSPORIN ([id number]*08/31/2008 2 - Rash Comments: blisters PROTONIX (PANTOPRAZOLE) 01/13/2010 6 - Diarrhea RELAFEN (NABUMETONE) 03/22/2006 8 - GI Upset 11 - Vomiting ACTOS (PIOGLITAZONE HCL) 12/03/2016 7 - Swelling Date Reviewed: 01/27/2020 Reviewed by: Cintia Macias LPN - Fully Assessed Reason for Visit: Medication Request [138] Cmt: not on current list; cough syr up Visit Diagnosis:Chronic cough [R05] Comment:2014 PFT showed moderate obstruction after surgery Order(s):codeine-guaiFENesin (VIRTUSSIN AC) 10-100 mg/ 5 mL syrupTake 5 mL by mouth four times daily as needed for up to 7 days.Disp: 118 mLRfl: 0 Prescriptions as of 04/02/2020 Sig: CODEINE 10 MG-GUAIFENESIN 100* Take 5 mL by mouth four times * PEN NEEDLE, DIABETIC 31 GAUGE* Use 1 needle for each dose. 4 * LANTUS SOLOSTAR U-100 INSULIN* Inject 24 Units subcutaneousl * LANCETS Micro-lancets to work with cu* KETOCONAZOLE 2 % TOPICAL CREAM Apply 1 application to affect * CAPSAICIN 0.025 % TOPICAL CRE* Apply 3 application to affect * CRANBERRY PLUS VITAMIN C 140 * Patient takes Cranberry with * BIOTIN 2,500 MCG CAPSULE Nurse reports patient taking * ASPIRIN 81 MG TABLET,DELAYED * Take 81 mg by mouth once paola * ATORVASTATIN 20 MG TABLET Take 1 tablet by mouth once d* LORAZEPAM 1 MG TABLET TAKE 1/2 TO 1 TABLET BY MOUTH* MIRABEGRON ER 50 MG TABLET,EX* Take 1 tablet by mouth twice * INSULIN ASPART (U-100) 100 UN* Inject 8 Units subcutaneously * GLIMEPIRIDE 2 MG TABLET Take 1 tablet by mouth twice * SERTRALINE 50 MG TABLET Take 1 tablet by mouth once d* PREMARIN 0.625 MG/GRAM VAGINA* APPLY 0.5 GRAMS VAGINALLY BEF * CEPHALEXIN 250 MG TABLET Take 1 tablet by mouth daily * Patient not taking: Reported on 01/27/2020 OXYBUTYNIN CHLORIDE ER 10 MG * Take 1 tablet by mouth twice * MISCELLANEOUS MEDICAL SUPPLY * Custom Orthotics (E08.40, Z* METOPROLOL SUCCINATE ER 200 M* Take 1 tablet by mouth once d * ESOMEPRAZOLE MAGNESIUM 40 MG * Take 1 capsule by mouth DAILY * BLOOD SUGAR DIAGNOSTIC STRIPS Check blood sugars 2x per day* PRESERVISION AREDS-2 ORAL Take by mouth twice daily. CHOLECALCIFEROL (VITAMIN D3) * Take 2 capsules by mouth once * SUMATRIPTAN 50 MG TABLET Take 1 tablet by mouth. at on* Patient not taking: Reported on 01/27/2020 COMPOUNDED PRESCRIPTION Custom orthotics (E08.40, Z7* BLOOD SUGAR DIAGNOSTIC STRIPS Test blood sugar(s) 2 times d* LANCETS Test blood sugar(s) 2 times * BLOOD-GLUCOSE METER KIT 1 Each as needed. One Touch M* LANCETS 1 Each twice daily. DX: 250.0* DAILY MULTIVITAMIN TABLET Take one(1) tablet daily. Problem List As Of Date 04/02/2020 Noted Resolved SPRAIN ROTATOR CUFF [S43.429A] 01/10/2003 03/03/2003 Complete rupture of rotator cuff [M75.120] 03/03/20032016 OSTEOPOROSIS NOS [M81.0] 02/19/2006 ALLERGIC RHINITIS NOS [J30.9] 03/06/2006 GENERAL OSTEOARTHROSIS [M15.9] 03/06/2006 Restless legs syndrome (RLS) [G25.81] 06/19/2006 LUMBAR DISC DISPLACEMENT [M51.26] More... Enlargement of lymph nodes [R59.9] 12/20/2006 08/15/2016 INSOMNIA NOS [G47.00] 04/30/2007 LUNG NODULE [R22.2] 09/05/2007 04/30/2015 STRICKLAND'S ESOPHAGUS [K22.70] Acute gastritis without mention of hemorrhage [*10/31/2007 0 09/15/2016 Pure hypercholesterolemia [E78.00] 12/14/2009 11/11/2014 Diabetes 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 condition w*02/07/2010 More... Anxiety [F41.9] 05/03/2011 More... Tendonitis of ankle, right [M77.51] 05/03/2011 08/15/2016 C. difficile diarrhea [A04.72] 10/18/2011 09/15/2016 Esophagitis, unspecified [K20.9] 11/23/2011 IBS (irritable bowel syndrome) [K58.9] 02/01/2012 More... Cataract [H26.9] 04/17/2013 09/15/2016 More... HTN (hypertension) [I10] 08/04/2013 More... Urge urinary incontinence [N39.41] 12/16/2013 Esophageal reflux [K21.9] 10/08/2014 10/08/2014 More... DVT prophylaxis [Z29.9] 11/11/2014 08/15/2016 More... DISPOSITION AND FOLLOW-UP [V999.01] 11/11/2014 08/15/2016 More... Migraines [G43.909] 11/11/2014 More... Hypoxia [R09.02] 11/14/2014 09/15/2016 More... 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 Mouth dryness [R68.2] 11/06/2016 Hyperlipidemia [E78.5] 11/06/2016 Functional dyspepsia [K30] 08/20/2017 More... 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 Gastroesophageal reflux disease with esophagiti*08/20/2017 More... 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 Prescriptions ordered this encounter Disp Refills Start End CODEINE 10 MG-GUAIFENESIN 100 MG/5 M* 118 * 0 04/06/202008/2019 Route: ORAL Sig: Take 5 mL by mouth four times daily as needed for up to 7 days. Encounter Status:Closed by CLARENCE LEVINE on 04/06/20 cnpn on 2020-03-13 CNPN Telephone (INTMWS) Normal 03-13-2020 [place] [facility] ANA IVORY ([id number]) 1940 [facility] Date Time Provider Department ([id number]) 03/13/20 ALICIA BLOUNT INTMWS During your visit today, we recorded the following informati on about you: Simran Russell Pss 03/13/2020 10:55 AM Signed Patient calling in needing her PT order faxed to [facility]. Simran Russell Pss Isabela Mendoza Cma 03/15/2020 3:27 PM Signed Faxed as requested. Allergies As of Date: 03/13/2020 Noted Allergy Reaction ADHESIVE TAPE (ROSINS) 08/31/2008 4 - Hives Comments: Rash around bandaid never been tested for latex al lergy ASPIRIN 04/16/2018 15 - Contraindication-Medical [place]* Comments: GI bleed BONIVA (IBANDRONATE) 12/04/2008 8 - GI Upset Comments: Esophageal burning CARAFATE (SUCRALFATE) 04/24/2012 14 - Other: See Comments Comments: feels poorly CIPROFLOXACIN 12/01/2013 14 - Other: See Comments Comments: photosensitivity, dermatitis CODEINE 08/24/2005 8 - GI Upset IBUPROFEN 03/22/2006 8 - GI Upset IODINE 08/25/2008 11 - Vomiting LANSOPRAZOLE 11/01/2011 6 - Diarrhea METFORMIN 05/10/2011 6 - Diarrhea NEOSPORIN ([id number]*08/31/2008 2 - Rash Comments: blisters PROTONIX (PANTOPRAZOLE) 01/13/2010 6 - Diarrhea RELAFEN (NABUMETONE) 03/22/2006 8 - GI Upset 11 - Vomiting ACTOS (PIOGLITAZONE HCL) 12/03/2016 7 - Swelling Date Reviewed: 01/27/2020 Reviewed by: Cintia Macias LPN - Fully Assessed Reason for Visit: Physical Therapy [503] Prescriptions as of 03/13/2020 Sig: LANTUS SOLOSTAR U-100 INSULIN* Inject 24 Units subcutaneousl * LANCETS Micro-lancets to work with cu* KETOCONAZOLE 2 % TOPICAL CREAM Apply 1 application to affect * CAPSAICIN 0.025 % TOPICAL CRE* Apply 3 application to affect * CRANBERRY PLUS VITAMIN C 140 * Patient takes Cranberry with * BIOTIN 2,500 MCG CAPSULE Nurse reports patient taking * ASPIRIN 81 MG TABLET,DELAYED * Take 81 mg by mouth once paola * ATORVASTATIN 20 MG TABLET Take 1 tablet by mouth once d* LORAZEPAM 1 MG TABLET TAKE 1/2 TO 1 TABLET BY MOUTH* MIRABEGRON ER 50 MG TABLET,EX* Take 1 tablet by mouth twice * INSULIN ASPART (U-100) 100 UN* Inject 8 Units subcutaneously * GABAPENTIN 300 MG CAPSULE Take 1 capsule by mouth twice* GLIMEPIRIDE 2 MG TABLET Take 1 tablet by mouth twice * SERTRALINE 50 MG TABLET Take 1 tablet by mouth once d* PREMARIN 0.625 MG/GRAM VAGINA* APPLY 0.5 GRAMS VAGINALLY BEF * CEPHALEXIN 250 MG TABLET Take 1 tablet by mouth daily * Patient not taking: Reported on 01/27/2020 OXYBUTYNIN CHLORIDE ER 10 MG * Take 1 tablet by mouth twice * MISCELLANEOUS MEDICAL SUPPLY * Custom Orthotics (E08.40, Z* METOPROLOL SUCCINATE ER 200 M* Take 1 tablet by mouth once d * ESOMEPRAZOLE MAGNESIUM 40 MG * Take 1 capsule by mouth DAILY * BLOOD SUGAR DIAGNOSTIC STRIPS Check blood sugars 2x per day* PRESERVISION AREDS-2 ORAL Take by mouth twice daily. CHOLECALCIFEROL (VITAMIN D3) * Take 2 capsules by mouth once * PEN NEEDLE, DIABETIC 31 GAUGE* Use 1 needle for each dose. 2 * SUMATRIPTAN 50 MG TABLET Take 1 tablet by mouth. at on* Patient not taking: Reported on 01/27/2020 COMPOUNDED PRESCRIPTION Custom orthotics (E08.40, Z7* BLOOD SUGAR DIAGNOSTIC STRIPS Test blood sugar(s) 2 times d* LANCETS Test blood sugar(s) 2 times * BLOOD-GLUCOSE METER KIT 1 Each as needed. One Touch M* LANCETS 1 Each twice daily. DX: 250.0* DAILY MULTIVITAMIN TABLET Take one(1) tablet daily. Problem List As Of Date 03/13/2020 Noted Resolved SPRAIN ROTATOR CUFF [S43.429A] 01/10/2003 03/03/2003 Complete rupture of rotator cuff [M75.120] 03/03/20032016 OSTEOPOROSIS NOS [M81.0] 02/19/2006 ALLERGIC RHINITIS NOS [J30.9] 03/06/2006 GENERAL OSTEOARTHROSIS [M15.9] 03/06/2006 Restless legs syndrome (RLS) [G25.81] 06/19/2006 LUMBAR DISC DISPLACEMENT [M51.26] More... Enlargement of lymph nodes [R59.9] 12/20/2006 08/15/2016 INSOMNIA NOS [G47.00] 04/30/2007 LUNG NODULE [R22.2] 09/05/2007 04/30/2015 STRICKLAND'S ESOPHAGUS [K22.70] Acute gastritis without mention of hemorrhage [*10/31/2007 0 09/15/2016 Pure hypercholesterolemia [E78.00] 12/14/2009 11/11/2014 Diabetes 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 condition w*02/07/2010 More... Anxiety [F41.9] 05/03/2011 More... Tendonitis of ankle, right [M77.51] 05/03/2011 08/15/2016 C. difficile diarrhea [A04.72] 10/18/2011 09/15/2016 Esophagitis, unspecified [K20.9] 11/23/2011 IBS (irritable bowel syndrome) [K58.9] 02/01/2012 More... Cataract [H26.9] 04/17/2013 09/15/2016 More... HTN (hypertension) [I10] 08/04/2013 More... Urge urinary incontinence [N39.41] 12/16/2013 Esophageal reflux [K21.9] 10/08/2014 10/08/2014 More... DVT prophylaxis [Z29.9] 11/11/2014 08/15/2016 More... DISPOSITION AND FOLLOW-UP [V999.01] 11/11/2014 08/15/2016 More... Migraines [G43.909] 11/11/2014 More... Hypoxia [R09.02] 11/14/2014 09/15/2016 More... 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 Mouth dryness [R68.2] 11/06/2016 Hyperlipidemia [E78.5] 11/06/2016 Functional dyspepsia [K30] 08/20/2017 More... 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 Gastroesophageal reflux disease with esophagiti*08/20/2017 More... 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 Encounter Status:Closed by ISABELA MENDOZA CMA on 03/15/20 obsolete on 2020-02 OBSOLETE Refill (INTMWS) Normal 02-27-2020 Mannie mancini [facility] ANA IVORY ([id number]) 1940 [facility] Date Time Provider Department ([id number]) 02/27/20 ALICIA BLOUNT INTVENKAT During your visit today, we recorded the following informati on about you: Jenny Farley 02/27/2020 12:08 PM Signed Patient has been identified by name and date of : Yes Pending Prescriptions Disp Refills ATORVASTATIN 20 MG TABLET 90 tablet 3 Sig: Take 1 tablet by mouth once daily. ABRAM: No RX INSTRUCTIONS: Patient aware RX will be sent to pharmacy. No need to notify patient. Jenny Farley Riddhi Marie LPN 02/27/2020 1:23 PM Signed In review rx and refills are at the pharmacy. Ph armacy notified. Nothing more is needed from here. Allergies As of Date: 02/27/2020 Noted Allergy Reaction ADHESIVE TAPE (ROSINS) 08/31/2008 4 - Hives Comments: Rash around bandaid never been tested for latex al lergy ASPIRIN 04/16/2018 15 - Contraindication-Medical [place]* Comments: GI bleed BONIVA (IBANDRONATE) 12/04/2008 8 - GI Upset Comments: Esophageal burning CARAFATE (SUCRALFATE) 04/24/2012 14 - Other: See Comments Comments: feels poorly CIPROFLOXACIN 12/01/2013 14 - Other: See Comments Comments: photosensitivity, dermatitis CODEINE 08/24/2005 8 - GI Upset IBUPROFEN 03/22/2006 8 - GI Upset IODINE 08/25/2008 11 - Vomiting LANSOPRAZOLE 11/01/2011 6 - Diarrhea METFORMIN 05/10/2011 6 - Diarrhea NEOSPORIN ([id number]*08/31/2008 2 - Rash Comments: blisters PROTONIX (PANTOPRAZOLE) 01/13/2010 6 - Diarrhea RELAFEN (NABUMETONE) 03/22/2006 8 - GI Upset 11 - Vomiting ACTOS (PIOGLITAZONE HCL) 12/03/2016 7 - Swelling Date Reviewed: 01/27/2020 Reviewed by: Cintia Macias LPN - Fully Assessed Reason for Visit: Refill Request [94] Prescriptions as of 02/27/2020 Sig: LANTUS SOLOSTAR U-100 INSULIN* Inject 24 Units subcutaneousl * LANCETS Micro-lancets to work with cu* KETOCONAZOLE 2 % TOPICAL CREAM Apply 1 application to affect * CAPSAICIN 0.025 % TOPICAL CRE* Apply 3 application to affect * CRANBERRY PLUS VITAMIN C 140 * Patient takes Cranberry with * BIOTIN 2,500 MCG CAPSULE Nurse reports patient taking * ASPIRIN 81 MG TABLET,DELAYED * Take 81 mg by mouth once paola * ATORVASTATIN 20 MG TABLET Take 1 tablet by mouth once d* LORAZEPAM 1 MG TABLET TAKE 1/2 TO 1 TABLET BY MOUTH* MIRABEGRON ER 50 MG TABLET,EX* Take 1 tablet by mouth twice * INSULIN ASPART (U-100) 100 UN* Inject 8 Units subcutaneously * GABAPENTIN 300 MG CAPSULE Take 1 capsule by mouth twice* GLIMEPIRIDE 2 MG TABLET Take 1 tablet by mouth twice * SERTRALINE 50 MG TABLET Take 1 tablet by mouth once d* PREMARIN 0.625 MG/GRAM VAGINA* APPLY 0.5 GRAMS VAGINALLY BEF * CEPHALEXIN 250 MG TABLET Take 1 tablet by mouth daily * Patient not taking: Reported on 01/27/2020 OXYBUTYNIN CHLORIDE ER 10 MG * Take 1 tablet by mouth twice * MISCELLANEOUS MEDICAL SUPPLY * Custom Orthotics (E08.40, Z* METOPROLOL SUCCINATE ER 200 M* Take 1 tablet by mouth once d * ESOMEPRAZOLE MAGNESIUM 40 MG * Take 1 capsule by mouth DAILY * BLOOD SUGAR DIAGNOSTIC STRIPS Check blood sugars 2x per day* PRESERVISION AREDS-2 ORAL Take by mouth twice daily. CHOLECALCIFEROL (VITAMIN D3) * Take 2 capsules by mouth once * PEN NEEDLE, DIABETIC 31 GAUGE* Use 1 needle for each dose. 2 * SUMATRIPTAN 50 MG TABLET Take 1 tablet by mouth. at on* Patient not taking: Reported on 01/27/2020 COMPOUNDED PRESCRIPTION Custom orthotics (E08.40, Z7* BLOOD SUGAR DIAGNOSTIC STRIPS Test blood sugar(s) 2 times d* LANCETS Test blood sugar(s) 2 times * BLOOD-GLUCOSE METER KIT 1 Each as needed. One Touch M* LANCETS 1 Each twice daily. DX: 250.0* DAILY MULTIVITAMIN TABLET Take one(1) tablet daily. Problem List As Of Date 02/27/2020 Noted Resolved SPRAIN ROTATOR CUFF [S43.429A] 01/10/2003 03/03/2003 Complete rupture of rotator cuff [M75.120] 03/03/20032016 OSTEOPOROSIS NOS [M81.0] 02/19/2006 ALLERGIC RHINITIS NOS [J30.9] 03/06/2006 GENERAL OSTEOARTHROSIS [M15.9] 03/06/2006 Restless legs syndrome (RLS) [G25.81] 06/19/2006 LUMBAR DISC DISPLACEMENT [M51.26] More... Enlargement of lymph nodes [R59.9] 12/20/2006 08/15/2016 INSOMNIA NOS [G47.00] 04/30/2007 LUNG NODULE [R22.2] 09/05/2007 04/30/2015 STRIKCLAND'S ESOPHAGUS [K22.70] Acute gastritis without mention of hemorrhage [*10/31/2007 0 09/15/2016 Pure hypercholesterolemia [E78.00] 12/14/2009 11/11/2014 Diabetes 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 condition w*02/07/2010 More... Anxiety [F41.9] 05/03/2011 More... Tendonitis of ankle, right [M77.51] 05/03/2011 08/15/2016 C. difficile diarrhea [A04.72] 10/18/2011 09/15/2016 Esophagitis, unspecified [K20.9] 11/23/2011 IBS (irritable bowel syndrome) [K58.9] 02/01/2012 More... Cataract [H26.9] 04/17/2013 09/15/2016 More... HTN (hypertension) [I10] 08/04/2013 More... Urge urinary incontinence [N39.41] 12/16/2013 Esophageal reflux [K21.9] 10/08/2014 10/08/2014 More... DVT prophylaxis [Z29.9] 11/11/2014 08/15/2016 More... DISPOSITION AND FOLLOW-UP [V999.01] 11/11/2014 08/15/2016 More... Migraines [G43.909] 11/11/2014 More... Hypoxia [R09.02] 11/14/2014 09/15/2016 More... 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 Mouth dryness [R68.2] 11/06/2016 Hyperlipidemia [E78.5] 11/06/2016 Functional dyspepsia [K30] 08/20/2017 More... 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 Gastroesophageal reflux disease with esophagiti*08/20/2017 More... 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 Encounter Status:Closed by RIDDHI MARIE LPN on 02/27/[facility] Telephone (INTWS) Normal 02-19-2020 [place] [facility] ANA IVORY ([id number]) 1940 [facility] Date Time Provider Department ([id number]) 02/19/20 ALICIA BLOUNT INTWS During your visit today, we recorded the following informati on about you: Mansi Preston LPN 02/19/2020 2:23 PM Signed Patient Robb calling asking for a handicap plac [place] rx, asking for one please. He said has never had one for hi s . 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 I explained what he would need t o do with the rx. Please advise Clarence Berry APRN.LOLI 02/20/2020 9:40 AM Signed See below, filed, please process Danielle Guido MA 02/20/2020 10:47 AM Signed Called and LM on to return call to [facility] and ask to speak with [facility] triage nurse. Please update that Rx has be en completed and they can pick this up at [facility]. Danielle Siua Sera 02/23/2020 3:20 PM Signed Robb returned call and notified. Allergies As of Date: 02/19/2020 Noted Allergy Reaction ADHESIVE TAPE (ROSINS) 08/31/2008 4 - Hives Comments: Rash around bandaid never been tested for latex al lergy ASPIRIN 04/16/2018 15 - Contraindication-Medical [place]* Comments: GI bleed BONIVA (IBANDRONATE) 12/04/2008 8 - GI Upset Comments: Esophageal burning CARAFATE (SUCRALFATE) 04/24/2012 14 - Other: See Comments Comments: feels poorly CIPROFLOXACIN 12/01/2013 14 - Other: See Comments Comments: photosensitivity, dermatitis CODEINE 08/24/2005 8 - GI Upset IBUPROFEN 03/22/2006 8 - GI Upset IODINE 08/25/2008 11 - Vomiting LANSOPRAZOLE 11/01/2011 6 - Diarrhea METFORMIN 05/10/2011 6 - Diarrhea NEOSPORIN ([id number]*08/31/2008 2 - Rash Comments: blisters PROTONIX (PANTOPRAZOLE) 01/13/2010 6 - Diarrhea RELAFEN (NABUMETONE) 03/22/2006 8 - GI Upset 11 - Vomiting ACTOS (PIOGLITAZONE HCL) 12/03/2016 7 - Swelling Date Reviewed: 01/27/2020 Reviewed by: Cinita Macias LPN - Fully Assessed Reason for Visit: asking for handicap placard rx [Other] Prescriptions as of 02/19/2020 Sig: LANTUS SOLOSTAR U-100 INSULIN* Inject 24 Units subcutaneousl * LANCETS Micro-lancets to work with cu* KETOCONAZOLE 2 % TOPICAL CREAM Apply 1 application to affect * CAPSAICIN 0.025 % TOPICAL CRE* Apply 3 application to affect * CRANBERRY PLUS VITAMIN C 140 * Patient takes Cranberry with * BIOTIN 2,500 MCG CAPSULE Nurse reports patient taking * ASPIRIN 81 MG TABLET,DELAYED * Take 81 mg by mouth once paola * ATORVASTATIN 20 MG TABLET Take 1 tablet by mouth once d* LORAZEPAM 1 MG TABLET TAKE 1/2 TO 1 TABLET BY MOUTH* MIRABEGRON ER 50 MG TABLET,EX* Take 1 tablet by mouth twice * INSULIN ASPART (U-100) 100 UN* Inject 8 Units subcutaneously * GABAPENTIN 300 MG CAPSULE Take 1 capsule by mouth twice* GLIMEPIRIDE 2 MG TABLET Take 1 tablet by mouth twice * SERTRALINE 50 MG TABLET Take 1 tablet by mouth once d* PREMARIN 0.625 MG/GRAM VAGINA* APPLY 0.5 GRAMS VAGINALLY BEF * CEPHALEXIN 250 MG TABLET Take 1 tablet by mouth daily * Patient not taking: Reported on 01/27/2020 OXYBUTYNIN CHLORIDE ER 10 MG * Take 1 tablet by mouth twice * MISCELLANEOUS MEDICAL SUPPLY * Custom Orthotics (E08.40, Z* METOPROLOL SUCCINATE ER 200 M* Take 1 tablet by mouth once d * ESOMEPRAZOLE MAGNESIUM 40 MG * Take 1 capsule by mouth DAILY * BLOOD SUGAR DIAGNOSTIC STRIPS Check blood sugars 2x per day* PRESERVISION AREDS-2 ORAL Take by mouth twice daily. CHOLECALCIFEROL (VITAMIN D3) * Take 2 capsules by mouth once * PEN NEEDLE, DIABETIC 31 GAUGE* Use 1 needle for each dose. 2 * SUMATRIPTAN 50 MG TABLET Take 1 tablet by mouth. at on* Patient not taking: Reported on 01/27/2020 COMPOUNDED PRESCRIPTION Custom orthotics (E08.40, Z7* BLOOD SUGAR DIAGNOSTIC STRIPS Test blood sugar(s) 2 times d* LANCETS Test blood sugar(s) 2 times * BLOOD-GLUCOSE METER KIT 1 Each as needed. One Touch M* LANCETS 1 Each twice daily. DX: 250.0* DAILY MULTIVITAMIN TABLET Take one(1) tablet daily. Problem List As Of Date 02/19/2020 Noted Resolved SPRAIN ROTATOR CUFF [S43.429A] 01/10/2003 03/03/2003 Complete rupture of rotator cuff [M75.120] 03/03/20032016 OSTEOPOROSIS NOS [M81.0] 02/19/2006 ALLERGIC RHINITIS NOS [J30.9] 03/06/2006 GENERAL OSTEOARTHROSIS [M15.9] 03/06/2006 Restless legs syndrome (RLS) [G25.81] 06/19/2006 LUMBAR DISC DISPLACEMENT [M51.26] More... Enlargement of lymph nodes [R59.9] 12/20/2006 08/15/2016 INSOMNIA NOS [G47.00] 04/30/2007 LUNG NODULE [R22.2] 09/05/2007 04/30/2015 STRICKLAND'S ESOPHAGUS [K22.70] Acute gastritis without mention of hemorrhage [*10/31/2007 0 09/15/2016 Pure hypercholesterolemia [E78.00] 12/14/2009 11/11/2014 Diabetes 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 condition w*02/07/2010 More... Anxiety [F41.9] 05/03/2011 More... Tendonitis of ankle, right [M77.51] 05/03/2011 08/15/2016 C. difficile diarrhea [A04.72] 10/18/2011 09/15/2016 Esophagitis, unspecified [K20.9] 11/23/2011 IBS (irritable bowel syndrome) [K58.9] 02/01/2012 More... Cataract [H26.9] 04/17/2013 09/15/2016 More... HTN (hypertension) [I10] 08/04/2013 More... Urge urinary incontinence [N39.41] 12/16/2013 Esophageal reflux [K21.9] 10/08/2014 10/08/2014 More... DVT prophylaxis [Z29.9] 11/11/2014 08/15/2016 More... DISPOSITION AND FOLLOW-UP [V999.01] 11/11/2014 08/15/2016 More... Migraines [G43.909] 11/11/2014 More... Hypoxia [R09.02] 11/14/2014 09/15/2016 More... 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 Mouth dryness [R68.2] 11/06/2016 Hyperlipidemia [E78.5] 11/06/2016 Functional dyspepsia [K30] 08/20/2017 More... 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 Gastroesophageal reflux disease with esophagiti*08/20/2017 More... 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 Letter Text Encounter Status:Closed by MINOR ZAMORA on 02/23/20 obsolete on 2020-02 OBSOLETE Refill (INTMWS) Normal 02-18-2020 Mannie mancini [facility] ANA IVORY ([id number]) 1940 [facility] Date Time Provider Department ([id number]) 02/18/20 ALICIA BLOUNT INTMWS During your visit today, we recorded the following informati on about you: Shasta Morris 02/18/2020 9:46 AM Signed Patient's request for medication is as follows: Pending Prescriptions Disp Refills LANTUS SOLOSTAR U-100 INSULIN 100 UNIT/ML (3 ML) SUBCUTANEOU S PEN 15 mL 3 Sig: Inject 24 Units subcutaneously daily at bedtime. ABRAM: No Prescription(s) as above. Please process accordingly. Shasta Muro LPN 02/18/2020 11:30 AM Signed Patient has been identified by name and date of : Yes Patient phones for refill(s): Pending Prescriptions Disp Refills LANTUS SOLOSTAR U-100 INSULIN 100 UNIT/ML (3 ML) SUBCUTANEOU S PEN 15 mL 3 Sig: Inject 24 Units subcutaneously daily at bedtime. ABRAM: No Date of last office visit in primary care: 01/27/2020 3 month follow-up: 04/13/2020 Last 2 Encounter Wt Readings: Date: Wt: 01/27/2020 59 kg (130 lb) 01/08/2020 58.5 kg (129 lb) Previous labs/tests for medication: Diabetes: Hemoglobin A1C (%) Date Value 01/22/2020 7.2 10/20/2019 7.4 Please advise. Thank you. Juana Muro LPN Allergies As of Date: 02/18/2020 Noted Allergy Reaction ADHESIVE TAPE (ROSINS) 08/31/2008 4 - Hives Comments: Rash around bandaid never been tested for latex al lergy ASPIRIN 04/16/2018 15 - Contraindication-Medical [place]* Comments: GI bleed BONIVA (IBANDRONATE) 12/04/2008 8 - GI Upset Comments: Esophageal burning CARAFATE (SUCRALFATE) 04/24/2012 14 - Other: See Comments Comments: feels poorly CIPROFLOXACIN 12/01/2013 14 - Other: See Comments Comments: photosensitivity, dermatitis CODEINE 08/24/2005 8 - GI Upset IBUPROFEN 03/22/2006 8 - GI Upset IODINE 08/25/2008 11 - Vomiting LANSOPRAZOLE 11/01/2011 6 - Diarrhea METFORMIN 05/10/2011 6 - Diarrhea NEOSPORIN ([id number]*08/31/2008 2 - Rash Comments: blisters PROTONIX (PANTOPRAZOLE) 01/13/2010 6 - Diarrhea RELAFEN (NABUMETONE) 03/22/2006 8 - GI Upset 11 - Vomiting ACTOS (PIOGLITAZONE HCL) 12/03/2016 7 - Swelling Date Reviewed: 01/27/2020 Reviewed by: Cintia Macias LPN - Fully Assessed Reason for Visit: Refill Request [94] Order(s):insulin glargine (LANTUS SOLOSTAR U-100 INSULIN) 10 0 unit/mL (3 mL)Inject 24 Units subcutaneously daily at bedtime.Disp: 15 mLRfl: 3 Prescriptions as of 02/18/2020 Sig: LANTUS SOLOSTAR U-100 INSULIN* Inject 24 Units subcutaneousl * LANCETS Micro-lancets to work with cu* KETOCONAZOLE 2 % TOPICAL CREAM Apply 1 application to affect * CAPSAICIN 0.025 % TOPICAL CRE* Apply 3 application to affect * CRANBERRY PLUS VITAMIN C 140 * Patient takes Cranberry with * BIOTIN 2,500 MCG CAPSULE Nurse reports patient taking * ASPIRIN 81 MG TABLET,DELAYED * Take 81 mg by mouth once paola * ATORVASTATIN 20 MG TABLET Take 1 tablet by mouth once d* LORAZEPAM 1 MG TABLET TAKE 1/2 TO 1 TABLET BY MOUTH* MIRABEGRON ER 50 MG TABLET,EX* Take 1 tablet by mouth twice * INSULIN ASPART (U-100) 100 UN* Inject 8 Units subcutaneously * GABAPENTIN 300 MG CAPSULE Take 1 capsule by mouth twice* GLIMEPIRIDE 2 MG TABLET Take 1 tablet by mouth twice * SERTRALINE 50 MG TABLET Take 1 tablet by mouth once d* PREMARIN 0.625 MG/GRAM VAGINA* APPLY 0.5 GRAMS VAGINALLY BEF * CEPHALEXIN 250 MG TABLET Take 1 tablet by mouth daily * Patient not taking: Reported on 01/27/2020 OXYBUTYNIN CHLORIDE ER 10 MG * Take 1 tablet by mouth twice * MISCELLANEOUS MEDICAL SUPPLY * Custom Orthotics (E08.40, Z* METOPROLOL SUCCINATE ER 200 M* Take 1 tablet by mouth once d * ESOMEPRAZOLE MAGNESIUM 40 MG * Take 1 capsule by mouth DAILY * BLOOD SUGAR DIAGNOSTIC STRIPS Check blood sugars 2x per day* PRESERVISION AREDS-2 ORAL Take by mouth twice daily. CHOLECALCIFEROL (VITAMIN D3) * Take 2 capsules by mouth once * PEN NEEDLE, DIABETIC 31 GAUGE* Use 1 needle for each dose. 2 * SUMATRIPTAN 50 MG TABLET Take 1 tablet by mouth. at on* Patient not taking: Reported on 01/27/2020 COMPOUNDED PRESCRIPTION Custom orthotics (E08.40, Z7* BLOOD SUGAR DIAGNOSTIC STRIPS Test blood sugar(s) 2 times d* LANCETS Test blood sugar(s) 2 times * BLOOD-GLUCOSE METER KIT 1 Each as needed. One Touch M* LANCETS 1 Each twice daily. DX: 250.0* DAILY MULTIVITAMIN TABLET Take one(1) tablet daily. Problem List As Of Date 02/18/2020 Noted Resolved SPRAIN ROTATOR CUFF [S43.429A] 01/10/2003 03/03/2003 Complete rupture of rotator cuff [M75.120] 03/03/20032016 OSTEOPOROSIS NOS [M81.0] 02/19/2006 ALLERGIC RHINITIS NOS [J30.9] 03/06/2006 GENERAL OSTEOARTHROSIS [M15.9] 03/06/2006 Restless legs syndrome (RLS) [G25.81] 06/19/2006 LUMBAR DISC DISPLACEMENT [M51.26] More... Enlargement of lymph nodes [R59.9] 12/20/2006 08/15/2016 INSOMNIA NOS [G47.00] 04/30/2007 LUNG NODULE [R22.2] 09/05/2007 04/30/2015 STRICKLAND'S ESOPHAGUS [K22.70] Acute gastritis without mention of hemorrhage [*10/31/2007 0 09/15/2016 Pure hypercholesterolemia [E78.00] 12/14/2009 11/11/2014 Diabetes 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 condition w*02/07/2010 More... Anxiety [F41.9] 05/03/2011 More... Tendonitis of ankle, right [M77.51] 05/03/2011 08/15/2016 C. difficile diarrhea [A04.72] 10/18/2011 09/15/2016 Esophagitis, unspecified [K20.9] 11/23/2011 IBS (irritable bowel syndrome) [K58.9] 02/01/2012 More... Cataract [H26.9] 04/17/2013 09/15/2016 More... HTN (hypertension) [I10] 08/04/2013 More... Urge urinary incontinence [N39.41] 12/16/2013 Esophageal reflux [K21.9] 10/08/2014 10/08/2014 More... DVT prophylaxis [Z29.9] 11/11/2014 08/15/2016 More... DISPOSITION AND FOLLOW-UP [V999.01] 11/11/2014 08/15/2016 More... Migraines [G43.909] 11/11/2014 More... Hypoxia [R09.02] 11/14/2014 09/15/2016 More... 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 Mouth dryness [R68.2] 11/06/2016 Hyperlipidemia [E78.5] 11/06/2016 Functional dyspepsia [K30] 08/20/2017 More... 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 Gastroesophageal reflux disease with esophagiti*08/20/2017 More... 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 Prescriptions ordered this encounter Disp Refills Start End LANTUS SOLOSTAR U-100 INSULIN 100 UN* 15 mL 3 02/18/2020 Route: SUBCUTANEOUS Sig: Inject 24 Units subcutaneously daily at bedtime. Medications Discontinued During This Encounter insulin glargine (LANTUS SOLOSTAR U-* 15 mL 3 05/26/201902/17 Route: SUBCUTANEOUS Sig: Inject 24 Units subcutaneously daily at bedtime. Disc: Reason for discontinue is not on file. Encounter Status:Closed by NAVYA THRASHER CNP on 02/18/20 cnpn on 2020-02-13 CNPN Telephone (INTMWS) Normal 02-13-2020 [place] [facility] ANA IVORY ([id number]) 1940 [facility] Date Time Provider Department ([id number]) 02/13/20 ALICIA BLOUNT INTMWS During your visit today, we recorded the following informati on about you: Chelsy Valverde LPN 02/13/2020 10:04 AM Signed D/C from Speech and HH service yesterday. No longer ho me bound. Per PT Marlene, outpt PT is recommended. Please put in orders and help get s cheduled. DX. transferring to a cane. Chelsy Berry APRN.LOLI 02/16/2020 4:14 PM Signed Is PT needed at OP setting? Where will this be done / where does order g? Order filed for PT; please schedule at preferred location Alida Lemus Pss 02/18/2020 9:39 AM Signed Spoke with patient. She is requesting to have Physical Thera py done at [facility]. Please fax order and patient will schedule appointment. Yulisa Bills LPN 02/19/2020 7:56 AM Signed Order has been faxed to [facility] as requested. Allergies As of Date: 02/13/2020 Noted Allergy Reaction ADHESIVE TAPE (ROSINS) 08/31/2008 4 - Hives Comments: Rash around bandaid never been tested for latex al lergy ASPIRIN 04/16/2018 15 - Contraindication-Medical [place]* Comments: GI bleed BONIVA (IBANDRONATE) 12/04/2008 8 - GI Upset Comments: Esophageal burning CARAFATE (SUCRALFATE) 04/24/2012 14 - Other: See Comments Comments: feels poorly CIPROFLOXACIN 12/01/2013 14 - Other: See Comments Comments: photosensitivity, dermatitis CODEINE 08/24/2005 8 - GI Upset IBUPROFEN 03/22/2006 8 - GI Upset IODINE 08/25/2008 11 - Vomiting LANSOPRAZOLE 11/01/2011 6 - Diarrhea METFORMIN 05/10/2011 6 - Diarrhea NEOSPORIN ([id number]*08/31/2008 2 - Rash Comments: blisters PROTONIX (PANTOPRAZOLE) 01/13/2010 6 - Diarrhea RELAFEN (NABUMETONE) 03/22/2006 8 - GI Upset 11 - Vomiting ACTOS (PIOGLITAZONE HCL) 12/03/2016 7 - Swelling Date Reviewed: 01/27/2020 Reviewed by: Cintia Macias LPN - Fully Assessed Reason for Visit: [facility] Speech [Other] Primary Visit Diagnosis:Stroke determine d by clinical assessment ([facility]) [I63.9] Other Visit Diagnoses:LUMBAR DISC DISPLACEMENT [M51.26] 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 ([facility]) [I63.211] Difficulty walking [R26.2] Order(s):CONSULT TO PHYSICAL THERAPY [9032] Order #: 1 [id number]: 1 FUTURE Prescriptions as of 02/13/2020 Sig: LANCETS Micro-lancets to work with cu* KETOCONAZOLE 2 % TOPICAL CREAM Apply 1 application to affect * CAPSAICIN 0.025 % TOPICAL CRE* Apply 3 application to affect * CRANBERRY PLUS VITAMIN C 140 * Patient takes Cranberry with * BIOTIN 2,500 MCG CAPSULE Nurse reports patient taking * ASPIRIN 81 MG TABLET,DELAYED * Take 81 mg by mouth once paola * ATORVASTATIN 20 MG TABLET Take 1 tablet by mouth once d* LORAZEPAM 1 MG TABLET TAKE 1/2 TO 1 TABLET BY MOUTH* MIRABEGRON ER 50 MG TABLET,EX* Take 1 tablet by mouth twice * INSULIN ASPART (U-100) 100 UN* Inject 8 Units subcutaneously * GABAPENTIN 300 MG CAPSULE Take 1 capsule by mouth twice* GLIMEPIRIDE 2 MG TABLET Take 1 tablet by mouth twice * SERTRALINE 50 MG TABLET Take 1 tablet by mouth once d* PREMARIN 0.625 MG/GRAM VAGINA* APPLY 0.5 GRAMS VAGINALLY BEF * CEPHALEXIN 250 MG TABLET Take 1 tablet by mouth daily * Patient not taking: Reported on 01/27/2020 OXYBUTYNIN CHLORIDE ER 10 MG * Take 1 tablet by mouth twice * MISCELLANEOUS MEDICAL SUPPLY * Custom Orthotics (E08.40, Z* METOPROLOL SUCCINATE ER 200 M* Take 1 tablet by mouth once d * ESOMEPRAZOLE MAGNESIUM 40 MG * Take 1 capsule by mouth DAILY * X INSULIN GLARGINE (U-100) 100 * Inject 24 Units subcutaneou sl* BLOOD SUGAR DIAGNOSTIC STRIPS Check blood sugars 2x per day* PRESERVISION AREDS-2 ORAL Take by mouth twice daily. CHOLECALCIFEROL (VITAMIN D3) * Take 2 capsules by mouth once * PEN NEEDLE, DIABETIC 31 GAUGE* Use 1 needle for each dose. 2 * SUMATRIPTAN 50 MG TABLET Take 1 tablet by mouth. at on* Patient not taking: Reported on 01/27/2020 COMPOUNDED PRESCRIPTION Custom orthotics (E08.40, Z7* BLOOD SUGAR DIAGNOSTIC STRIPS Test blood sugar(s) 2 times d* LANCETS Test blood sugar(s) 2 times * BLOOD-GLUCOSE METER KIT 1 Each as needed. One Touch M* LANCETS 1 Each twice daily. DX: 250.0* DAILY MULTIVITAMIN TABLET Take one(1) tablet daily. Problem List As Of Date 02/13/2020 Noted Resolved SPRAIN ROTATOR CUFF [S43.429A] 01/10/2003 03/03/2003 Complete rupture of rotator cuff [M75.120] 03/03/20032016 OSTEOPOROSIS NOS [M81.0] 02/19/2006 ALLERGIC RHINITIS NOS [J30.9] 03/06/2006 GENERAL OSTEOARTHROSIS [M15.9] 03/06/2006 Restless legs syndrome (RLS) [G25.81] 06/19/2006 LUMBAR DISC DISPLACEMENT [M51.26] More... Enlargement of lymph nodes [R59.9] 12/20/2006 08/15/2016 INSOMNIA NOS [G47.00] 04/30/2007 LUNG NODULE [R22.2] 09/05/2007 04/30/2015 STRICKLAND'S ESOPHAGUS [K22.70] Acute gastritis without mention of hemorrhage [*10/31/2007 0 09/15/2016 Pure hypercholesterolemia [E78.00] 12/14/2009 11/11/2014 Diabetes 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 condition w*02/07/2010 More... Anxiety [F41.9] 05/03/2011 More... Tendonitis of ankle, right [M77.51] 05/03/2011 08/15/2016 C. difficile diarrhea [A04.72] 10/18/2011 09/15/2016 Esophagitis, unspecified [K20.9] 11/23/2011 IBS (irritable bowel syndrome) [K58.9] 02/01/2012 More... Cataract [H26.9] 04/17/2013 09/15/2016 More... HTN (hypertension) [I10] 08/04/2013 More... Urge urinary incontinence [N39.41] 12/16/2013 Esophageal reflux [K21.9] 10/08/2014 10/08/2014 More... DVT prophylaxis [Z29.9] 11/11/2014 08/15/2016 More... DISPOSITION AND FOLLOW-UP [V999.01] 11/11/2014 08/15/2016 More... Migraines [G43.909] 11/11/2014 More... Hypoxia [R09.02] 11/14/2014 09/15/2016 More... 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 Mouth dryness [R68.2] 11/06/2016 Hyperlipidemia [E78.5] 11/06/2016 Functional dyspepsia [K30] 08/20/2017 More... 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 Gastroesophageal reflux disease with esophagiti*08/20/2017 More... 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 Encounter Status:Closed by JOSÉ MORRISALIDA on 02/18/20 progress on 2020-01 PROGRESS HNO ID: [id number] Normal 01-27-2020 [facility] Author: Alicia Blount [place] ([id number]) Service: ? Author Type: Physician Type: Progress Notes Filed: 01/27/2020 4:59 PM Note Text: This note was created using Embarklyriter. Subjective Ana Ivory is a 79 year old female. Patient presents with: Follow Up SUBJECTIVE: Ana Ivory is a 79 year old year old lady here today f or follow up appointment for review of medical conditions. Noted that had 1 sugar was 400 Reviewed log--had a couple 345 but by the next morning down to 143. This past week, none over 269 Most mornings are <150. Has appointment with Dr. Nacho Munguia (Endocrinology at [facility]) at the end of this month. Note that granddaughter is able to see her blood sugars (glu cometer connected to her cell phone). Note that has not been checking midday blood sugar and not t aking insulin at lunch either. Does eat a snack at night if sugar is low (110's) at bedti me. Noted PT/OT/ST has been exhausting. Noted area in left axilla that gets red and irritated. Somet imes larger area. has had for several months. Zinc oxide helps. (linear pink rash in crease) Noted lumps on lower right abdomen in area that gives hersel f insulin injections. 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 difficile diarrhea 10/18/2011 - Cataract 04/17/2013 [facility], Dr. Dada Rodríguez. Mild cataract in L eye- no need for cataract surgery at this time. Continue to follow u p the cataract. 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 At [facility] s time, we anticipate that the patient will be discharged home once cli nically stable. Plan: - Discuss needs with patient. - Collaborate wi Case management to facilitate DC process - Will continue to evalu ate during the post op period. - Desat study 11/14/14: patient will need home oxygen (2 L with exertion only) - Discharge home today with home ca re for assistance with chest tube to Heimlich. Return to [facility] on Sun11/18/[address] removal . - Enlargement of lymph nodes 12/20/2006 - Esophagitis, unspecified - Hemorrhage of gastrointestinal tract, unspecified - Hyperreflexia 08/02/2011 - Hypertension - Hypoxia 11/14/2014 Desat study done 11/14/14: Home oxygen needed (2 L/min via real al cannula with exertion and while sleeping). A face to face encounter was performed during this hospital admission regarding the need for oxygen . The patient verbalized understanding and consents to this therapy. - LVATS ODALIS Lobectomy 11/05/2014 74 year old never smoker who had a nodule identified on a sc reening scan in the past due to a family concern regarding asbestosis. Th e nodule slowly grew from 1.0 to 1.5 cm in about 6yrs. 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 On 11/10/14, Dr. Villagomez performed video assisted left upper lobectomy. Ramirez drain removed POD 4, air leak in CT Plan: -Chest tube to heimlich valve. Monitor air leak and daily yields. Discharge home with heimlich -Pain management -Out o f bed, cough, deep breathe, acapella, frequent ambulation. -Carb controlle d diet . - Migraines 11/11/2014 - Orthostatic hypotension vasovagal syncope - Osteoporosis, unspecified - Snoring - Tendonitis of ankle, right 05/03/2011 - Type II or unspecified type diabetes mellitus without ment ion of complication, not stated as uncontrolled 02/07/2010 - Urge urinary incontinence 12/16/2013 - Variants of migraine, not elsewhere classified, without me ntion of intractable migraine without mention of status migrainosus Current Outpatient Medications Medication Sig - Lancets lancets Micro-lancets to work with current meter - One touch. Sig: Test blood sugar(s) 2 times daily. Dx: Type 2 DM - Cont rolled E11.9 , Insulin: Yes - aspirin, enteric coated (ASPIRIN, ENTERIC COATED) 81 mg EC tablet Take 81 mg by mouth once daily. - atorvastatin (LIPITOR) 20 mg tablet Take 1 tablet by mouth once daily. - LORazepam (ATIVAN) 1 mg tablet TAKE 1/2 TO 1 TABLET BY EZIO TH EVERY DAY NEEDED FOR FOR ANXIETY - mirabegron (MYRBETRIQ) 50 mg Tb24 Take 1 tablet by mouth t wice daily. - insulin aspart U-100 (NOVOLOG FLEXPEN U-100 INSULIN) 100 u nit/mL (3 mL) Inject 8 Units subcutaneously twice daily with meals. Adjust as directed - gabapentin (NEURONTIN) 300 mg capsule Take 1 capsule by mo uth twice daily for 180 days. Morning and bedtime - glimepiride (AMARYL) 2 mg tablet Take 1 tablet by mouth tw ice daily with meals. - sertraline (ZOLOFT) 50 mg tablet Take 1 tablet by mouth on ce daily. - oxybutynin ER (DITROPAN XL) 10 mg 24 hr tablet Take 1 tabl et by mouth twice daily. (Dr Don) [facility] [employer] [facility] (E08.40 , Z79.4) 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, with long-term current use of insulin - metoprolol succinate ER (TOPROL XL) 200 mg 24 hr tablet Ta ke 1 tablet by mouth once daily. - esomeprazole (NEXIUM) 40 mg capsule Take 1 capsule by mout h DAILY (6 AM). - insulin glargine (LANTUS SOLOSTAR U-100 INSULIN) 100 unit/ mL (3 mL) inpn Inject 24 Units subcutaneously daily at bedtime. - blood sugar diagnostic (EASY TOUCH TEST STRIP) test strip Check blood sugars 2x per day and as needed Dx: E11.9 insulin: yes - vit C/E/Zn/coppr/lutein/zeaxan (PRESERVISION AREDS-2 ORAL) Take by mouth twice daily. - Cholecalciferol, Vitamin D3, 1,000 unit cap Take 2 capsule s by mouth once daily. - Insulin [place], Disposable, (EASY TOUCH) 31 gauge x 3/16 ndle Use 1 needle for each dose. 2x daily - COMPOUNDED PRESCRIPTION Custom orthotics (E08.40, Z79.4) D iabetes 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 condition with diabetic neuropath y, with long-term current use of insulin - blood sugar diagnostic (ONETOUCH ULTRA TEST) test strip Te st blood sugar(s) 2 times daily. Dx: Type 2 DM - Controlled E11.9 Ins ulin: Yes - Lancets (ONETOUCH ULTRASOFT LANCETS) lancets Test blood daigle gar(s) 2 times daily. Dx: Type 2 DM - Controlled E11.9 , Insulin: Yes - Blood-Glucose Meter (ONETOUCH ULTRA2) monitoring kit 1 Eac h as needed. One Touch Meter Kit Diagnosis: Type 2 DM - Controlled E11.9 - Lancets (EASY TOUCH LANCETS) lancets 1 Each twice daily. D X: 250.00 insulin - multivitamins(DAILY MULTIVITAMIN TAB) Take one(1) tablet d aily. - ketoconazole (NIZORAL) 2 % cream Apply 1 application to af fected area twice daily. Continue for 1 week after rash resolves. - capsaicin (ZOSTRIX) 0.025 % cream Apply 3 application to a ffected area three times daily. January 27, 2020 states not using - PREMARIN vaginal cream APPLY 0.5 GRAMS VAGINALLY BEFORE BE D EVERY NIGHT FOR 14 DAYS THEN USE TWICE A WEEK FOR 3 MONTHS - Cephalexin 250 mg tab Take 1 tablet by mouth daily at bedt dinorah. (Dr Don) (Patient not taking: Reported on 01/27/2020 ) - SUMAtriptan (IMITREX) 50 mg tablet Take 1 tablet by mouth. at onset of headache. May take another tablet as needed one hour later. (Patient not taking: Reported on 01/27/2020 ) No current facility-administered medications for this visit. N called in to report patient has been taking Cranberry pl us Vitamin C (15,000 cranberry, 100mg Vitamin C) and Biotin 1500 mg daily . Reports not taking other meds as noted above. Info received after myrtle peters's appointment. Okay supplements. (N will discuss with Dr. Chiara casas about cephalexin) Review of Systems See HPI Objective BP 140/70 Pulse 68 Resp 20 Wt 59 kg (130 lb) BMI 23. 40 kg/m? Physical Exam Constitutional: Appearance: Normal appearance. HENT: Head: Normocephalic. Eyes: Extraocular Movements: Extraocular movements intact. Conjunctiva/sclera: Conjunctivae normal. Cardiovascular: Rate and Rhythm: Normal rate and regular rhythm. Heart sounds: Normal heart sounds. Pulmonary: Effort: Pulmonary effort is normal. Breath sounds: Normal breath sounds. Abdominal: Skin: General: Skin is warm and dry. Findings: Rash (left axilla--red area along a skin fold/crea se in lower axilla with slight raised area--line about 3 to 4 cm long) p resent. Neurological: Mental Status: She is alert and oriented to person, place, a nd time. Comments: Right side weakness noted; stood to show lumps on lower abodmen--steady with standing in one place. Did not have her walk. Walker here in exam room. Psychiatric: Mood and Affect: Mood normal. Behavior: Behavior normal. Thought Content: Thought content normal. Judgment: Judgment normal. Comments: Patient with fluent speech but occasionally some w ork-finding difficulty. Component Latest Ref Rng AND Units 2019 08/08/2019201901/22/2020 Protein, Total 6.3 - 8.0 g/dL 7.1 6.6 7.2 Albumin 3.9 - 4.9 g/dL 4.3 4.1 4.3 Calcium 8.5 - 10.2 mg/dL 9.3 8.6 9.3 Bilirubin, Total 0.2 - 1.3 mg/dL 0.4 0.3 0.4 Alkaline Phosphatase 34 - 123 U/L 84 82 83 AST 13 - 35 U/L 13 11 (L) 14 Glucose 74 - 99 mg/dL 202 (H) 163 (H) 168 (H) BUN 7 - 21 mg/dL 10 14 12 Creatinine 0.58 - 0.96 mg/dL 0.65 0.61 0.61 Sodium 136 - 144 mmol/L 139 140 139 Potassium 3.7 - 5.1 mmol/L 4.3 3.7 4.2 Chloride 97 - 105 mmol/L 102 104 103 CO2 22 - 30 mmol/L 25 26 27 Anion Gap 9 - 18 mmol/L 12 10 9 ALT 7 - 38 U/L 11 7 14 eGFR- >60 >60 >60 eGFR-All Other Races . >60 >60 >60 Color Yellow Light Yellow (A) Clarity Clear Slightly Cloudy (A) Glucose, Urine Negative mg/dL Negative Bilirubin, Urine Negative Negative Ketones, Urine Negative Negative Specific [place], Ur 1.005 - 1.030 1.014 Hemoglobin/Blood,Ur Negative Negative pH, Urine 5.0 - 8.0 6.0 Protein, Urine Negative Negative Urobilinogen Negative E.U./dL Negative Nitrites Negative Negative Leukest Negative 2+ (A) Comment SEE COMMENT Urine Sam Comment SEE COMMENT WBC, Urine 0 - 5 /HPF 6-10 (A) RBC, Urine 0 - 3 /HPF 0-3 Epithelial Cells /HPF SEE COMMENT WBC 3.70 - 11.00 k/uL 7.08 9.60 5.65 RBC 3.90 - 5.20 m/uL 4.42 4.27 4.23 Hemoglobin 11.5 - 15.5 g/dL 13.8 13.0 13.2 Hematocrit 36.0 - 46.0 % 41.5 38.3 38.1 MCV 80.0 - 100.0 fL 93.9 89.7 90.1 MCH 26.0 - 34.0 pG 31.2 30.4 31.2 MCHC 30.5 - 36.0 g/dL 33.3 33.9 34.6 RDW-CV 11.5 - 15.0 % 13.1 13.2 12.7 Platelet Count 150 - 400 k/uL 279 237 219 MPV 9.0 - 12.7 fL 10.5 9.4 9.4 Absolute nRBC <0.01 k/uL <0.01 <0.01 <0.01 Cholesterol, Total <200 mg/dL 178 167 Triglyceride <150 mg/dL 144 115 HDL Cholesterol >39 mg/dL 52 54 LDL Cholesterol <100 mg/dL 97 90 Non HDL Cholesterol <130 mg/dL 126 113 Fasting Time hrs 12 10 VLDL Cholesterol <30 mg/dL 29 23 TC:HDL Ratio <5.10 3.42 3.09 LDL:HDL Ratio <2.54 1.87 1.67 Creatinine, Ur Random (UCRR) 20 - 300 mg/dL 153.7 68.1 Albumin, Urine Random mg/L 1,026.8 <12.0 Albumin/Creat Ratio <30 mg/g 668 (H) Not calculated [place] Free, Serum 3.30 - 19.40 mg/L 19.8 (H) Lambda Free, Serum 5.7 - 26.3 mg/L 11.7 K/L Ratio, Serum 0.26 - 1.65 1.69 (H) Hemoglobin A1C 4.3 - 5.6 % 7.9 (H) 7.4 (H) 7.2 (H) Estimated Average Glucose mg/dL 180 166 160 Vitamin D 25 Hydroxy 31.0 - 80.0 ng/mL 30.9 (L) 38.3 43.5 Hemoglobin A1C (POCT) 4.2 - 5.6 % 7.2 (A) TSH 0.270 - 4.200 uU/mL 4.160 3.670 Free T4 0.9 - 1.7 ng/dL 1.1 Vitamin B12 232 - 1,245 pg/mL 564 Folate >4.7 ng/mL 13.8 Assessment and Plan Encounter Diagnosis ICD-10-CM 1. Stroke determined by clinical assessment ([facility]) I63.9 Left hemispheric stroke with right sided weakness.Gait insta bility and word finding problems noted. 2. 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 Essential hypertension I10 Fair control Continue present meds. 4. Right lower quadrant abdominal mass R19.03 Feels lipomatous; in area where gives insulin shots. Monitor for change in size. Can refer for excision if causes pain or if starts getting larger 5. Candidal dermatitis B37.2 Improves with zinc oxide; will try ketoconazole cream. Furth er eval and tx as indicated 6. Vitamin D deficiency E55.9 Improved to43.5 7. Chronic cough R05 Stated that does not have follow up with pulmonary medicine; after appt, reviewed last progress note with CALL OUT CLERK and diagnosis of Bronch iectasis noted.F/U prn Though she finds doing PT/OT/ST several times a week exhaust ing, she has been doing her exercises. Did get overwhelmed at one point and just wanted to cry, but she does find that the therapists are very good and understanding. Still u sing walker. Finds ST more exhausting than PT in some ways. Reviewed that her PM blood sugars have been high, but AM sug ars are usually fine and HgA1C is still good in the 7 range. Recomme nded she check lunch time sugars and consider taking insulin with mian ch if sugars are controlled but not low to prevent the highs by supper an d bedtime. She will continue checking sugars and keeping a diary of her t to bring to her appointment with Dr. Nacho Munguia. Further evaluation and t reatment as indicated. note that granddaughter helping with her DM manag ement. Labs reviewed. Will follow up with outside provider on resul ts of the [place], Lambda and kappa/lambda serum ratio. Discussed they w ere just above normal range for kappa free change and the ratio, but since I do not have prior labs to know reason was checking these labs, maxine ot interpret the results out of context. Discussed reason this test is do ne is usually as part of work up for multiple myeloma. She is not aware of this being a diagnosis that is being evaluated for. (Found order in scan ed documents--Dr. Pandya at [place] ordered the test for diagnosis of polyneuropathy) Above issues addressed with patient. Patient involved in shared decision making for management of medical issues. History and medications reviewed. Epic updated as needed Refills and/or prescriptions taken care of and meds adjusted as indicated after reviewed history, exam and labs. Encouraged on efforts at healthy diet and regular exercise a nd adequate sleep. The majority of the visit was spent counseling and/or coordi nating care for the patient. [id number]-un-okaa time was at least 45 minutes. MD bony Rodríguez on 2020-01-27 CNPN Telephone (INTMWS) Normal 01-27-2020 [place] ANA Caro ([id number]) 1940 [facility] Date Time Provider Department ([id number]) 01/27/20 ALICIA BLOUNT INTMWS During your visit today, we recorded the following informati on about you: Mansi Preston LPN 01/27/2020 9:17 AM Signed Jason from [facility] calling with list medications patient said she is not taking any longer Codeine guaifenesin cough syr up, Cephalexin 250 mg, Sumatriptan, Capsaicin cream. List of medications patient is taking not on list, Cranber ry plus Vitamin C 15,000 mg cranberry, 100 mg vitamin C and Biotin 1,500 mg on ce daily. Any changes notify nurse please? Please advise Clarence Berry APRN.BUSINESS ANALYSIS PROFESSIONAL 01/27/2020 10:56 AM Addendum need supplements added below frequency, route - daily oral? Should be taking these medic ations unless discontinued by provider: sumatriptan as needed (Alicia Blount MD) and cephalexin (Dr. Don) . See office encounter this date. Juana Muro LPN 01/27/2020 4:11 PM Signed Reviewed supplements, added to Med list with [facility] Nurse. Advised of below recommendat ion, she will check with Dr. Don re: Cephalexin. Juana Blount MD 01/27/2020 8:59 PM Signed Changed to doses to match what was in the original note. Updated medkist Disp Refills capsaicin (ZOSTRIX) 0.025 % cream 100 g 0 Sig: Apply 3 application to affected area three times daily. January 27, 2020 states not using ABRAM: No Authorizing Provider: CLARENCE BERRY (BUSINESS ANALYSIS PROFESSIONAL) Cranberry-Vitamin C-Vitamin E (CRANBERRY PLUS VITAMIN C) 140 -100 mg cap Sig: Patient takes Cranberry with Vitamin C capsule that c ontains 15,000 mg Cranberry and 100mg Vitamin C Authorizing Provider: ALICIA BLOUNT Biotin 2,500 mcg cap Sig: Nurse reports patient taking 1500 mcg dose once daily ( cannot find 1500mcg dose on menu) Authorizing Provider: ALICIA BLOUNT MD Allergies As of Date: 01/27/2020 Noted Allergy Reaction ADHESIVE TAPE (ROSINS) 08/31/2008 4 - Hives Comments: Rash around bandaid never been tested for latex al lergy ASPIRIN 04/16/2018 15 - Contraindication-Medical Daigle* Comments: GI bleed BONIVA (IBANDRONATE) 12/04/2008 8 - GI Upset Comments: Esophageal burning CARAFATE (SUCRALFATE) 04/24/2012 14 - Other: See Comments Comments: feels poorly CIPROFLOXACIN 12/01/2013 14 - Other: See Comments Comments: photosensitivity, dermatitis CODEINE 08/24/2005 8 - GI Upset IBUPROFEN 03/22/2006 8 - GI Upset IODINE 08/25/2008 11 - Vomiting LANSOPRAZOLE 11/01/2011 6 - Diarrhea METFORMIN 05/10/2011 6 - Diarrhea NEOSPORIN ([id number]*08/31/2008 2 - Rash Comments: blisters PROTONIX (PANTOPRAZOLE) 01/13/2010 6 - Diarrhea RELAFEN (NABUMETONE) 03/22/2006 8 - GI Upset 11 - Vomiting ACTOS (PIOGLITAZONE HCL) 12/03/2016 7 - Swelling Date Reviewed: 01/27/2020 Reviewed by: Cintia Macias LPN - Fully Assessed Reason for Visit: medication list changes [Other] Visit Diagnosis:Chronic cough [R05] Comment:2014 PFT showed moderate obstruction after surgery Order(s):capsaicin (ZOSTRIX) 0.025 % cre amApply 3 application to affected area three times daily. January 27, 2020 states not usingDisp: 100 g Rfl: 0 Cranberry-Vitamin C-Vitamin E (CRANBERRY PLUS VITAMIN C) 140 -100 mg capPatient takes Cranberry with Vitamin C capsule that conta ins 15,000 mg Cranberry and 100mg Vitamin CDisp: Rfl: Biotin 2,500 mcg capNurse reports patient taking 1500 mcg do se once daily (cannot find 1500mcg dose on menu)Disp: Rfl: Prescriptions as of 01/27/2020 Sig: LANCETS Micro-lancets to work with cu* KETOCONAZOLE 2 % TOPICAL CREAM Apply 1 application to affect * CAPSAICIN 0.025 % TOPICAL CRE* Apply 3 application to affect * CRANBERRY PLUS VITAMIN C 140 * Patient takes Cranberry with * BIOTIN 2,500 MCG CAPSULE Nurse reports patient taking * ASPIRIN 81 MG TABLET,DELAYED * Take 81 mg by mouth once paola * ATORVASTATIN 20 MG TABLET Take 1 tablet by mouth once d* LORAZEPAM 1 MG TABLET TAKE 1/2 TO 1 TABLET BY MOUTH* MIRABEGRON ER 50 MG TABLET,EX* Take 1 tablet by mouth twice * INSULIN ASPART (U-100) 100 UN* Inject 8 Units subcutaneously * GABAPENTIN 300 MG CAPSULE Take 1 capsule by mouth twice* GLIMEPIRIDE 2 MG TABLET Take 1 tablet by mouth twice * SERTRALINE 50 MG TABLET Take 1 tablet by mouth once d* PREMARIN 0.625 MG/GRAM VAGINA* APPLY 0.5 GRAMS VAGINALLY BEF * CEPHALEXIN 250 MG TABLET Take 1 tablet by mouth daily * Patient not taking: Reported on 01/27/2020 OXYBUTYNIN CHLORIDE ER 10 MG * Take 1 tablet by mouth twice * MISCELLANEOUS MEDICAL SUPPLY * Custom Orthotics (E08.40, Z* METOPROLOL SUCCINATE ER 200 M* Take 1 tablet by mouth once d * ESOMEPRAZOLE MAGNESIUM 40 MG * Take 1 capsule by mouth DAILY * INSULIN GLARGINE (U-100) 100 * Inject 24 Units subcutaneousl * BLOOD SUGAR DIAGNOSTIC STRIPS Check blood sugars 2x per day* PRESERVISION AREDS-2 ORAL Take by mouth twice daily. CHOLECALCIFEROL (VITAMIN D3) * Take 2 capsules by mouth once * PEN NEEDLE, DIABETIC 31 GAUGE* Use 1 needle for each dose. 2 * SUMATRIPTAN 50 MG TABLET Take 1 tablet by mouth. at on* Patient not taking: Reported on 01/27/2020 COMPOUNDED PRESCRIPTION Custom orthotics (E08.40, Z7* BLOOD SUGAR DIAGNOSTIC STRIPS Test blood sugar(s) 2 times d* LANCETS Test blood sugar(s) 2 times * BLOOD-GLUCOSE METER KIT 1 Each as needed. One Touch M* LANCETS 1 Each twice daily. DX: 250.0* DAILY MULTIVITAMIN TABLET Take one(1) tablet daily. Problem List As Of Date 01/27/2020 Noted Resolved SPRAIN ROTATOR CUFF [S43.429A] 01/10/2003 03/03/2003 Complete rupture of rotator cuff [M75.120] 03/03/20032016 OSTEOPOROSIS NOS [M81.0] 02/19/2006 ALLERGIC RHINITIS NOS [J30.9] 03/06/2006 GENERAL OSTEOARTHROSIS [M15.9] 03/06/2006 Restless legs syndrome (RLS) [G25.81] 06/19/2006 LUMBAR DISC DISPLACEMENT [M51.26] More... Enlargement of lymph nodes [R59.9] 12/20/2006 08/15/2016 INSOMNIA NOS [G47.00] 04/30/2007 LUNG NODULE [R22.2] 09/05/2007 04/30/2015 STRICKLAND'S ESOPHAGUS [K22.70] Acute gastritis without mention of hemorrhage [*10/31/2007 0 09/15/2016 Pure hypercholesterolemia [E78.00] 12/14/2009 11/11/2014 Diabetes 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 condition w*02/07/2010 More... Anxiety [F41.9] 05/03/2011 More... Tendonitis of ankle, right [M77.51] 05/03/2011 08/15/2016 C. difficile diarrhea [A04.72] 10/18/2011 09/15/2016 Esophagitis, unspecified [K20.9] 11/23/2011 IBS (irritable bowel syndrome) [K58.9] 02/01/2012 More... Cataract [H26.9] 04/17/2013 09/15/2016 More... HTN (hypertension) [I10] 08/04/2013 More... Urge urinary incontinence [N39.41] 12/16/2013 Esophageal reflux [K21.9] 10/08/2014 10/08/2014 More... DVT prophylaxis [Z29.9] 11/11/2014 08/15/2016 More... DISPOSITION AND FOLLOW-UP [V999.01] 11/11/2014 08/15/2016 More... Migraines [G43.909] 11/11/2014 More... Hypoxia [R09.02] 11/14/2014 09/15/2016 More... 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 Mouth dryness [R68.2] 11/06/2016 Hyperlipidemia [E78.5] 11/06/2016 Functional dyspepsia [K30] 08/20/2017 More... 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 Gastroesophageal reflux disease with esophagiti*08/20/2017 More... 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 Prescriptions ordered this encounter Disp Refills Start End CAPSAICIN 0.025 % TOPICAL CREAM 100 g 0 01/27/2020 Class: Med Update Route: TOPICAL Sig: Apply 3 application to affected area three times daily. January 27, 2020 states not using CRANBERRY PLUS VITAMIN C 140 MG-100 * 01/27/2020 Class: OTC Sig: Patient takes Cranberry with Vitamin C capsule that c ontains 15,000 mg Cranberry and 100mg Vitamin C BIOTIN 2,500 MCG CAPSULE 01/27/2020 Class: OTC Sig: Nurse reports patient taking 1500 mcg dose once daily ( cannot find 1500mcg dose on menu) Medications Discontinued During This Encounter capsaicin (ZOSTRIX) 0.025 % cream 100 g 0 02/09/2016 0 Class: Print RX Route: TOPICAL Sig: Apply 3 application to affected area three times daily. Patient not taking: Reported on 01/27/2020 Disc: Adjust Sig - Block E-Cancel codeine-guaiFENesin (VIRTUSSIN AC) 1* 118 * 0 01/08/202001/26 Route: ORAL Sig: Take 5 mL by mouth four times daily as needed for up to 7 days. Disc: Reason for discontinue is not on file. Encounter Status:Closed by ALICIA BLOUNT MD on 01/27/20 [facility] Telephone (INTMWS) Normal 01-27-2020 [place] ANA Caro ([id number]) 1940 [facility] Date Time Provider Department ([id number]) 01/27/20 ALICIA BLOUNT INTMWS During your visit today, we recorded the following informati on about you: Chelsy Vogel RN 01/27/2020 3:42 PM Signed [facility] Speech Therapist Melva #[phone], calls to report breanna n of care for patient. She will visit amna ent 1 x week one and 2 times 2 weeks to assist with compensatory strategies of word finding. No need to call back if agreeable. Chelsy Berry, CLIENT SUPPORT CONSULTANT.BUSINESS ANALYSIS PROFESSIONAL 01/27/2020 3:53 PM Signed OK Allergies As of Date: 01/27/2020 Noted Allergy Reaction ADHESIVE TAPE (ROSINS) 08/31/2008 4 - Hives Comments: Rash around bandaid never been tested for latex al lergy ASPIRIN 04/16/2018 15 - Contraindication-Medical [place]* Comments: GI bleed BONIVA (IBANDRONATE) 12/04/2008 8 - GI Upset Comments: Esophageal burning CARAFATE (SUCRALFATE) 04/24/2012 14 - Other: See Comments Comments: feels poorly CIPROFLOXACIN 12/01/2013 14 - Other: See Comments Comments: photosensitivity, dermatitis CODEINE 08/24/2005 8 - GI Upset IBUPROFEN 03/22/2006 8 - GI Upset IODINE 08/25/2008 11 - Vomiting LANSOPRAZOLE 11/01/2011 6 - Diarrhea METFORMIN 05/10/2011 6 - Diarrhea NEOSPORIN ([id number]*08/31/2008 2 - Rash Comments: blisters PROTONIX (PANTOPRAZOLE) 01/13/2010 6 - Diarrhea RELAFEN (NABUMETONE) 03/22/2006 8 - GI Upset 11 - Vomiting ACTOS (PIOGLITAZONE HCL) 12/03/2016 7 - Swelling Date Reviewed: 01/27/2020 Reviewed by: Cintia Macias LPN - Fully Assessed Reason for Visit: speech therapy plan of care [Other] Prescriptions as of 01/27/2020 Sig: LANCETS Micro-lancets to work with cu* KETOCONAZOLE 2 % TOPICAL CREAM Apply 1 application to affect * CAPSAICIN 0.025 % TOPICAL CRE* Apply 3 application to affect * ASPIRIN 81 MG TABLET,DELAYED * Take 81 mg by mouth once paola * ATORVASTATIN 20 MG TABLET Take 1 tablet by mouth once d* LORAZEPAM 1 MG TABLET TAKE 1/2 TO 1 TABLET BY MOUTH* MIRABEGRON ER 50 MG TABLET,EX* Take 1 tablet by mouth twice * INSULIN ASPART (U-100) 100 UN* Inject 8 Units subcutaneously * GABAPENTIN 300 MG CAPSULE Take 1 capsule by mouth twice* GLIMEPIRIDE 2 MG TABLET Take 1 tablet by mouth twice * SERTRALINE 50 MG TABLET Take 1 tablet by mouth once d* PREMARIN 0.625 MG/GRAM VAGINA* APPLY 0.5 GRAMS VAGINALLY BEF * CEPHALEXIN 250 MG TABLET Take 1 tablet by mouth daily * Patient not taking: Reported on 01/27/2020 OXYBUTYNIN CHLORIDE ER 10 MG * Take 1 tablet by mouth twice * MISCELLANEOUS MEDICAL SUPPLY * Custom Orthotics (E08.40, Z* METOPROLOL SUCCINATE ER 200 M* Take 1 tablet by mouth once d * ESOMEPRAZOLE MAGNESIUM 40 MG * Take 1 capsule by mouth DAILY * INSULIN GLARGINE (U-100) 100 * Inject 24 Units subcutaneousl * BLOOD SUGAR DIAGNOSTIC STRIPS Check blood sugars 2x per day* PRESERVISION AREDS-2 ORAL Take by mouth twice daily. CHOLECALCIFEROL (VITAMIN D3) * Take 2 capsules by mouth once * PEN NEEDLE, DIABETIC 31 GAUGE* Use 1 needle for each dose. 2 * SUMATRIPTAN 50 MG TABLET Take 1 tablet by mouth. at on* Patient not taking: Reported on 01/27/2020 COMPOUNDED PRESCRIPTION Custom orthotics (E08.40, Z7* BLOOD SUGAR DIAGNOSTIC STRIPS Test blood sugar(s) 2 times d* LANCETS Test blood sugar(s) 2 times * BLOOD-GLUCOSE METER KIT 1 Each as needed. One Touch M* LANCETS 1 Each twice daily. DX: 250.0* DAILY MULTIVITAMIN TABLET Take one(1) tablet daily. Problem List As Of Date 01/27/2020 Noted Resolved SPRAIN ROTATOR CUFF [S43.429A] 01/10/2003 03/03/2003 Complete rupture of rotator cuff [M75.120] 03/03/20032016 OSTEOPOROSIS NOS [M81.0] 02/19/2006 ALLERGIC RHINITIS NOS [J30.9] 03/06/2006 GENERAL OSTEOARTHROSIS [M15.9] 03/06/2006 Restless legs syndrome (RLS) [G25.81] 06/19/2006 LUMBAR DISC DISPLACEMENT [M51.26] More... Enlargement of lymph nodes [R59.9] 12/20/2006 08/15/2016 INSOMNIA NOS [G47.00] 04/30/2007 LUNG NODULE [R22.2] 09/05/2007 04/30/2015 STRICKLAND'S ESOPHAGUS [K22.70] Acute gastritis without mention of hemorrhage [*10/31/2007 0 09/15/2016 Pure hypercholesterolemia [E78.00] 12/14/2009 11/11/2014 Diabetes 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 condition w*02/07/2010 More... Anxiety [F41.9] 05/03/2011 More... Tendonitis of ankle, right [M77.51] 05/03/2011 08/15/2016 C. difficile diarrhea [A04.72] 10/18/2011 09/15/2016 Esophagitis, unspecified [K20.9] 11/23/2011 IBS (irritable bowel syndrome) [K58.9] 02/01/2012 More... Cataract [H26.9] 04/17/2013 09/15/2016 More... HTN (hypertension) [I10] 08/04/2013 More... Urge urinary incontinence [N39.41] 12/16/2013 Esophageal reflux [K21.9] 10/08/2014 10/08/2014 More... DVT prophylaxis [Z29.9] 11/11/2014 08/15/2016 More... DISPOSITION AND FOLLOW-UP [V999.01] 11/11/2014 08/15/2016 More... Migraines [G43.909] 11/11/2014 More... Hypoxia [R09.02] 11/14/2014 09/15/2016 More... 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 Mouth dryness [R68.2] 11/06/2016 Hyperlipidemia [E78.5] 11/06/2016 Functional dyspepsia [K30] 08/20/2017 More... 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 Gastroesophageal reflux disease with esophagiti*08/20/2017 More... 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]11/22/2018 Encounter Status:Closed by CLARENCE LEVINE on 01/27/20 cnov on 2020-01-27 CNOV Office Visit (INTMWS) Normal 01-27-20 [place] [facility] ANA IVORY ([id number]) 1940 F [place] Date Time Provider Department ([id number]) 01/27/20 8:40 AM ALICIA BLOUNT INTMWS During your visit today, we recorded the following informati on about you: Pulse Respiration Blood pressure Weight 68/minute 20/minute 140/70 59 kg Alicia Blount MD 01/27/2020 4:59 PM Signed This note was created using Embarklyriter. Subjective Ana Ivory is a 79 year old female. Patient presents with: Follow Up SUBJECTIVE: Ana Ivory is a 79 year old year old lady here today f or follow up appointment for review of medical conditions. Noted that had 1 sugar was 400 Reviewed log--had a couple 345 but by the next morning down to 143. This past week, none over 269 Most mornings are <150. Has appointment with Dr. Nacho Munguia (Endocrinology at [facility]) at the end of this month. Note that granddaughter is able to see her blood sugars (glucometer connected to her cell phone). Note that has not been checking midday blood sugar and not taking insulin at lunch either. Does eat a snack at night if sugar is low (110's) at bedti me. Noted PT/OT/ST has been exhausting. Noted area in left axilla that gets red and irri tated. Sometimes larger area. has had for several months. Zinc oxide helps. (linear pink r crow in crease) Noted lumps on lower right abdomen in area that gives hersel f insulin injections. 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 difficile diarrhea 10/18/2011 - Cataract 04/17/2013 [facility], Dr. aDda johnson Mild cataract in L eye- no need for cataract surgery at this time. Continue to follow up the cat aract. 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 At thi s time, we anticipate that the patient will be discharged home once c linically stable. Plan: - Discuss needs with patient. - Collaborate with Case management to facilitate DC process - Will continue to evaluate during the post op period. - Desat study 11/14/14: patient will need home oxygen (2 L with exertion only) - Discharge home today with [facility] care for assistance with chest tube to Heimlich. Return to [facility] on Sunday11/18/[address] removal . - Enlargement of lymph nodes 12/20/2006 - Esophagitis, unspecified - Hemorrhage of gastrointestinal tract, unspecified - Hyperreflexia 08/02/2011 - Hypertension - Hypoxia 11/14/2014 Desat study done 11/14/14: Home oxygen needed (2 L/min via n irene cannula with exertion and while sleeping). A face to face encounter was performed during this hospital admission regarding the need for o xygen. The patient verbalized understanding and consents to this therapy. - LVATS ODALIS Lobectomy 11/05/2014 74 year old never smoker who had a nodule identified on a screening scan in the past due to a family concern regarding asbes tosis. The nodule slowly grew from 1.0 to 1.5 cm in about 6yrs. 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 On 11/10/14 , Dr. Villagomez performed video assisted left upper lobectomy. Ramirez drain removed POD 4, air l eak in CT Plan: -Chest tube to heimlich valve. Monitor air leak and daily yields. Discharge home with heimlich -Pain management -Out of bed, c ough, deep breathe, acapella, frequent ambulation. -Carb controlled diet . - Migraines 11/11/2014 - Orthostatic hypotension vasovagal syncope - Osteoporosis, unspecified - Snoring - Tendonitis of ankle, right 05/03/2011 - Type II or unspecified type diabetes mellitus without ment ion of complication, not stated as uncontrolled 02/07/2010 - Urge urinary incontinence 12/16/2013 - Variants of migraine, not elsewhere classified, without me ntion of intractable migraine without mention of status migrainosus Current Outpatient Medications Medication Sig - Lancets lancets Micro-lancets to work with current m eter - One touch. Sig: Test blood sugar(s) 2 times daily. Dx: T ype 2 DM - Controlled E11.9 , Insulin: Yes - aspirin, enteric coated (ASPIRIN, ENTE GINNY COATED) 81 mg EC tablet Take 81 mg by mouth once daily. - atorvastatin (LIPITOR) 20 mg tablet Take 1 tablet by mouth once daily. - LORazepam (ATIVAN) 1 mg tablet TAKE 1/2 TO 1 TABLET BY M OUTH EVERY DAY NEEDED FOR FOR ANXIETY - mirabegron (MYRBETRIQ) 50 mg Tb24 Take 1 tablet by mouth t wice daily. - insulin aspart U-100 (NOVOLOG FLEXPEN U-100 INSULIN) 100 u nit/mL (3 mL) Inject 8 Units subcutaneously twice daily with meals. Adjust as directed - gabapentin (NEURONTIN) 300 mg capsule Take 1 capsule by mouth twice daily for 180 days. Morning and bedtime - glimepiride (AMARYL) 2 mg tablet Take 1 tablet by mouth tw ice daily with meals. - sertraline (ZOLOFT) 50 mg tablet Take 1 tablet by mouth on ce daily. - oxybutynin ER (DITROPAN XL) 10 mg 24 hr tablet Take 1 tablet by mouth twice daily. 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 - esomeprazole (NEXIUM) 40 mg capsule Take 1 capsule by mo uth DAILY (6 AM). - insulin glargine (LANTUS SOLOSTAR U-100 INSULIN) 100 unit/ mL (3 mL) inpn Inject 24 Units subcutaneously daily at bedtime. - blood sugar diagnostic (EASY TOUCH ABHIJIT T STRIP) test strip Check blood sugars 2x per day and as needed Dx: E11.9 insulin: yes - vit C/E/Zn/coppr/lutein/zeaxan (PRESERVISION AREDS-2 ORAL) Take by mouth twice daily. - Cholecalciferol, Vitamin D3, 1,000 unit cap Take 2 capsu les by mouth once daily. - Insulin [place], Disposable, (EASY CARROL CH) 31 gauge x 16 ndle Use 1 needle for each dose. 2x daily - COMPOUNDED PRESCRIPTION Custom orthotics (E08.40, Z7 9.4) 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, with long-term current use of insulin - blood sugar diagnostic (ON ETOUCH ULTRA TEST) test strip Test blood sugar(s) 2 times daily. Dx: Type 2 DM - Controlled E11.9 Insulin: Yes - Lancets (ONETOUCH ULTRASOFT LANCETS) lancets Test blood daigle gar(s) 2 times daily. Dx: Type 2 DM - Controlled E11.9 , Insulin: Yes - Blood-Glucose Meter (ONETOUCH ULTRA2) monitoring kit 1 Each as needed. One Touch Meter Kit Diagnosis: Type 2 DM - Controlled E11.9 - Lancets (EASY TOUCH LANCETS) lancets 1 Each tw ice daily. DX: 250.00 insulin - multivitamins(DAILY MULTIVITAMIN TAB) Take one(1) tablet d aily. - ketoconazole (NIZORAL) 2 % cream Apply 1 appli cation to affected area twice daily. Continue for 1 week after rash resolves. - capsaicin (ZOSTRIX) 0.025 % cream Appl y 3 application to affected area three times daily. January 27, 2020 states not using - PREMARIN vaginal cream APPLY 0.5 GRAMS VAGINAL LY BEFORE BED EVERY NIGHT FOR 14 DAYS THEN USE TWICE A WEEK FOR 3 MONTHS - Cephalexin 250 mg tab Take 1 tablet by mouth d aily at bedtime. (Dr Don) (Patient not taking: Reported on 01/27/2020 ) - SUMAtriptan (IMITREX) 50 mg tablet Take 1 tablet by mouth. at onset of headache. May take another tablet as needed one hour later. (Patient not taking: Reported on 01/27/2020 ) No current facility-administered medications for this visit. N called in to report patient has been taking Cranberry pl us Vitamin C (15,000 cranberry, 100mg Vitamin C) and Biotin 1500 mg daily . Reports not taking other meds as noted above. Info received after patient's appointment. Okay supplements. ([facility] will discuss with Dr. Don about c ephalexin) Review of Systems See HPI Objective BP 140/70 Pulse 68 Resp 20 Wt 59 kg (130 lb) BMI 23. 40 kg/m? Physical Exam Constitutional: Appearance: Normal appearance. HENT: Head: Normocephalic. Eyes: Extraocular Movements: Extraocular movements intact. Conjunctiva/sclera: Conjunctivae normal. Cardiovascular: Rate and Rhythm: Normal rate and regular rhythm. Heart sounds: Normal heart sounds. Pulmonary: Effort: Pulmonary effort is normal. Breath sounds: Normal breath sounds. Abdominal: Skin: General: Skin is warm and dry. Findings: Rash (left axilla--red area along a skin fold/crea se in lower axilla with slight raised area--line about 3 to 4 cm long) p resent. Neurological: Mental Status: She is alert and oriented to person, place, a nd time. Comments: Right side weakness noted; stood to show lumps on lower abodmen--steady with standing in one breanna ce. Did not have her walk. Walker here in exam room. Psychiatric: Mood and Affect: Mood normal. Behavior: Behavior normal. Thought Content: Thought content normal. Judgment: Judgment normal. Comments: Patient with fluent speech but occasionally some w ork-finding difficulty. Component Latest Ref Rng AND Units 2019 08/08/2019201901/22/2020 Protein, Total 6.3 - 8.0 g/dL 7.1 6.6 7.2 Albumin 3.9 - 4.9 g/dL 4.3 4.1 4.3 Calcium 8.5 - 10.2 mg/dL 9.3 8.6 9.3 Bilirubin, Total 0.2 - 1.3 mg/dL 0.4 0.3 0.4 Alkaline Phosphatase 34 - 123 U/L 84 82 83 AST 13 - 35 U/L 13 11 (L) 14 Glucose 74 - 99 mg/dL 202 (H) 163 (H) 168 (H) BUN 7 - 21 mg/dL 10 14 12 Creatinine 0.58 - 0.96 mg/dL 0.65 0.61 0.61 Sodium 136 - 144 mmol/L 139 140 139 Potassium 3.7 - 5.1 mmol/L 4.3 3.7 4.2 Chloride 97 - 105 mmol/L 102 104 103 CO2 22 - 30 mmol/L 25 26 27 Anion Gap 9 - 18 mmol/L 12 10 9 ALT 7 - 38 U/L 11 7 14 eGFR- >60 >60 >60 eGFR-All Other Races . >60 >60 >60 Color Yellow Light Yellow (A) Clarity Clear Slightly Cloudy (A) Glucose, Urine Negative mg/dL Negative Bilirubin, Urine Negative Negative Ketones, Urine Negative Negative Specific [place], Ur 1.005 - 1.030 1.014 Hemoglobin/Blood,Ur Negative Negative pH, Urine 5.0 - 8.0 6.0 Protein, Urine Negative Negative Urobilinogen Negative E.U./dL Negative Nitrites Negative Negative Leukest Negative 2+ (A) Comment SEE COMMENT Urine Sam Comment SEE COMMENT WBC, Urine 0 - 5 /HPF 6-10 (A) RBC, Urine 0 - 3 /HPF 0-3 Epithelial Cells /HPF SEE COMMENT WBC 3.70 - 11.00 k/uL 7.08 9.60 5.65 RBC 3.90 - 5.20 m/uL 4.42 4.27 4.23 Hemoglobin 11.5 - 15.5 g/dL 13.8 13.0 13.2 Hematocrit 36.0 - 46.0 % 41.5 38.3 38.1 MCV 80.0 - 100.0 fL 93.9 89.7 90.1 MCH 26.0 - 34.0 pG 31.2 30.4 31.2 MCHC 30.5 - 36.0 g/dL 33.3 33.9 34.6 RDW-CV 11.5 - 15.0 % 13.1 13.2 12.7 Platelet Count 150 - 400 k/uL 279 237 219 MPV 9.0 - 12.7 fL 10.5 9.4 9.4 Absolute nRBC <0.01 k/uL <0.01 <0.01 <0.01 Cholesterol, Total <200 mg/dL 178 167 Triglyceride <150 mg/dL 144 115 HDL Cholesterol >39 mg/dL 52 54 LDL Cholesterol <100 mg/dL 97 90 Non HDL Cholesterol <130 mg/dL 126 113 Fasting Time hrs 12 10 VLDL Cholesterol <30 mg/dL 29 23 TC:HDL Ratio <5.10 3.42 3.09 LDL:HDL Ratio <2.54 1.87 1.67 Creatinine, Ur Random (UCRR) 20 - 300 mg/dL 153.7 68.1 Albumin, Urine Random mg/L 1,026.8 <12.0 Albumin/Creat Ratio <30 mg/g 668 (H) Not calculated [place] Free, Serum 3.30 - 19.40 mg/L 19.8 (H) Lambda Free, Serum 5.7 - 26.3 mg/L 11.7 K/L Ratio, Serum 0.26 - 1.65 1.69 (H) Hemoglobin A1C 4.3 - 5.6 % 7.9 (H) 7.4 (H) 7.2 (H) Estimated Average Glucose mg/dL 180 166 160 Vitamin D 25 Hydroxy 31.0 - 80.0 ng/mL 30.9 (L) 38.3 43.5 Hemoglobin A1C (POCT) 4.2 - 5.6 % 7.2 (A) TSH 0.270 - 4.200 uU/mL 4.160 3.670 Free T4 0.9 - 1.7 ng/dL 1.1 Vitamin B12 232 - 1,245 pg/mL 564 Folate >4.7 ng/mL 13.8 Assessment and Plan Encounter Diagnosis ICD-10-CM 1. Stroke determined by clinical assessment ([facility]) I63.9 Left hemispheric stroke with right sided weakness.Gait ins tability and word finding problems noted. 2. 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, with long-term current use of insulin ([facility]) E08.40 Z79.4 3. Essential hypertension I10 Fair control Continue present meds. 4. Right lower quadrant abdominal mass R19.03 Feels lipomatous; in area where gives insulin shots. Monitor for change in size. Can refer for excision if causes pain or if starts get ting larger 5. Candidal dermatitis B37.2 Improves with zinc oxide; will try ketoconazole cream. Further eval and tx as indicated 6. Vitamin D deficiency E55.9 Improved to43.5 7. Chronic cough R05 Stated that does not have follow up with pulmonary medicine; after appt, reviewed last progress note with CALL OUT CLERK and diagnosis of Bronchiectasis noted.F/U prn Though she finds doing PT/OT/ST several times a week exhausting, she has been doing her exercises. Did get overwhelmed at one p oint and just wanted to cry, but she does find that the therapists are very good and understanding. Still using walker. Finds ST more exhausting than PT in some ways. Reviewed that her PM blood sugars have been high, but AM s ugars are usually fine and HgA1C is still good in the 7 range. Rec ommended she check lunch time sugars and consider taking insulin with lunch if sugars are controlled but not low to prevent the highs by supper and bedtime. She will con tinue checking sugars and keeping a diary of her diet to bring to her helen ointment with Dr. Nacho Munguia. Further evaluation and treatment as indicated. no te that granddaughter helping with her DM management. Labs reviewed. Will follow up with outside provider on results of the [place], Lambda and kappa/lambda serum ratio. Discussed they were jus t above normal range for kappa free change and the ratio, but s nila I do not have prior labs to know reason was checking these labs, cannot interpret t he results out of context. Discussed reason this test is done is u sually as part of work up for multiple myeloma. She is not aware of this being a diagnosis that is being evaluated for. (Found order in scanned documents--Dr. Anshul britton at [place] ordered the test for diagnosis of polyneuropathy) Above issues addressed with patient. Patient involved in shared decision making for managem ent of medical issues. History and medications reviewed. Epic updated as needed Refills and/or prescriptions taken care of and meds adjusted as indicated after reviewed history, exam and labs. Encouraged on efforts at healthy diet an d regular exercise and adequate sleep. The majority of the visit wa s spent counseling and/or coordinating care for the patient. [id number] time was at least 45 minutes. Alicia Blount MD Referring Provider: CLARENCE BERRY (BUSINESS ANALYSIS PROFESSIONAL) [[id number]] Allergies As of Date: 01/27/2020 Noted Allergy Reaction ADHESIVE TAPE (ROSINS) 08/31/2008 4 - Hives Comments: Rash around bandaid never been tested for latex al lergy ASPIRIN 04/16/2018 15 - Contraindication-Medical Daigle* Comments: GI bleed BONIVA (IBANDRONATE) 12/04/2008 8 - GI Upset Comments: Esophageal burning CARAFATE (SUCRALFATE) 04/24/2012 14 - Other: See Comments Comments: feels poorly CIPROFLOXACIN 12/01/2013 14 - Other: See Comments Comments: photosensitivity, dermatitis CODEINE 08/24/2005 8 - GI Upset IBUPROFEN 03/22/2006 8 - GI Upset IODINE 08/25/2008 11 - Vomiting LANSOPRAZOLE 11/01/2011 6 - Diarrhea METFORMIN 05/10/2011 6 - Diarrhea NEOSPORIN ([id number]*08/31/2008 2 - Rash Comments: blisters PROTONIX (PANTOPRAZOLE) 01/13/2010 6 - Diarrhea RELAFEN (NABUMETONE) 03/22/2006 8 - GI Upset 11 - Vomiting ACTOS (PIOGLITAZONE HCL) 12/03/2016 7 - Swelling Date Reviewed: 01/27/2020 Reviewed by: Cintia Macias LPN - Fully Assessed Reason for Visit: Follow Up [171] Primary Visit Diagnosis:Stroke determine d by clinical assessment ([facility]) [I63.9] Comment:Left hemispheric stroke with right sided weakness.Gait instability and word finding problems noted. Other Visit Diagnoses:Diabetes 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 co ndition with diabetic neuropathy, with long-term current use of insulin ([facility]) [E08.40, Z79.4] Essential hypertension [I10] Comment:Fair control Continue present meds. Right lower quadrant abdominal mass [R19.03] Comment:Feels lipomatous; in area where gives insulin shots. Monitor for change in size. Can refer for excision if causes pain or if starts getting larger Candidal dermatitis [B37.2] Comment:Improves with zinc oxide; will try ketoconazole cream. Further eval and tx as indicated Vitamin D deficiency [E55.9] Comment:Improved to 43.5 Chronic cough [R05] Comment:Stated that does not have follow up with pulmonary medicine; after appt, reviewed last progress note with CALL OUT CLERK and diagnosis of Bronchiectasis noted.F/U prn Order(s):ketoconazole (NIZORAL) 2 % creamApply 1 application to affected area twice daily. Continue for 1 week after rash resolves.Disp: 3 0 gRfl: 0 Prescriptions as of 01/27/2020 Sig: LANCETS Micro-lancets to work with cu* ASPIRIN 81 MG TABLET,DELAYED * Take 81 mg by mouth once paola * ATORVASTATIN 20 MG TABLET Take 1 tablet by mouth once d* LORAZEPAM 1 MG TABLET TAKE 1/2 TO 1 TABLET BY MOUTH* MIRABEGRON ER 50 MG TABLET,EX* Take 1 tablet by mouth twice * INSULIN ASPART (U-100) 100 UN* Inject 8 Units subcutaneously * GABAPENTIN 300 MG CAPSULE Take 1 capsule by mouth twice* GLIMEPIRIDE 2 MG TABLET Take 1 tablet by mouth twice * SERTRALINE 50 MG TABLET Take 1 tablet by mouth once d* OXYBUTYNIN CHLORIDE ER 10 MG * Take 1 tablet by mouth twice * MISCELLANEOUS MEDICAL SUPPLY * Custom Orthotics (E08.40, Z* METOPROLOL SUCCINATE ER 200 M* Take 1 tablet by mouth once d * ESOMEPRAZOLE MAGNESIUM 40 MG * Take 1 capsule by mouth DAILY * INSULIN GLARGINE (U-100) 100 * Inject 24 Units subcutaneousl * BLOOD SUGAR DIAGNOSTIC STRIPS Check blood sugars 2x per day* PRESERVISION AREDS-2 ORAL Take by mouth twice daily. CHOLECALCIFEROL (VITAMIN D3) * Take 2 capsules by mouth once * PEN NEEDLE, DIABETIC 31 GAUGE* Use 1 needle for each dose. 2 * COMPOUNDED PRESCRIPTION Custom orthotics (E08.40, Z7* BLOOD SUGAR DIAGNOSTIC STRIPS Test blood sugar(s) 2 times d* LANCETS Test blood sugar(s) 2 times * BLOOD-GLUCOSE METER KIT 1 Each as needed. One Touch M* LANCETS 1 Each twice daily. DX: 250.0* DAILY MULTIVITAMIN TABLET Take one(1) tablet daily. KETOCONAZOLE 2 % TOPICAL CREAM Apply 1 application to affect * X CODEINE 10 MG-GUAIFENESIN 100* Take 5 mL by mouth four paulino es* PREMARIN 0.625 MG/GRAM VAGINA* APPLY 0.5 GRAMS VAGINALLY BEF * CEPHALEXIN 250 MG TABLET Take 1 tablet by mouth daily * Patient not taking: Reported on 01/27/2020 SUMATRIPTAN 50 MG TABLET Take 1 tablet by mouth. at on* Patient not taking: Reported on 01/27/2020 X CAPSAICIN 0.025 % TOPICAL CRE* Apply [address]* Patient not taking: Reported on 01/27/2020 Problem List As Of Date 01/27/2020 Noted Resolved SPRAIN ROTATOR CUFF [S43.429A] 01/10/2003 03/03/2003 Complete rupture of rotator cuff [M75.120] 03/03/20032016 OSTEOPOROSIS NOS [M81.0] 02/19/2006 ALLERGIC RHINITIS NOS [J30.9] 03/06/2006 GENERAL OSTEOARTHROSIS [M15.9] 03/06/2006 Restless legs syndrome (RLS) [G25.81] 06/19/2006 LUMBAR DISC DISPLACEMENT [M51.26] More... Enlargement of lymph nodes [R59.9] 12/20/2006 08/15/2016 INSOMNIA NOS [G47.00] 04/30/2007 LUNG NODULE [R22.2] 09/05/2007 04/30/2015 STRICKLAND'S ESOPHAGUS [K22.70] Acute gastritis without mention of hemorrhage [*10/31/2007 0 09/15/2016 Pure hypercholesterolemia [E78.00] 12/14/2009 11/11/2014 Diabetes 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 condition w*02/07/2010 More... Anxiety [F41.9] 05/03/2011 More... Tendonitis of ankle, right [M77.51] 05/03/2011 08/15/2016 C. difficile diarrhea [A04.72] 10/18/2011 09/15/2016 Esophagitis, unspecified [K20.9] 11/23/2011 IBS (irritable bowel syndrome) [K58.9] 02/01/2012 More... Cataract [H26.9] 04/17/2013 09/15/2016 More... HTN (hypertension) [I10] 08/04/2013 More... Urge urinary incontinence [N39.41] 12/16/2013 Esophageal reflux [K21.9] 10/08/2014 10/08/2014 More... DVT prophylaxis [Z29.9] 11/11/2014 08/15/2016 More... DISPOSITION AND FOLLOW-UP [V999.01] 11/11/2014 08/15/2016 More... Migraines [G43.909] 11/11/2014 More... Hypoxia [R09.02] 11/14/2014 09/15/2016 More... 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 Mouth dryness [R68.2] 11/06/2016 Hyperlipidemia [E78.5] 11/06/2016 Functional dyspepsia [K30] 08/20/2017 More... 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 Gastroesophageal reflux disease with esophagiti*08/20/2017 More... 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 Prescriptions ordered this encounter Disp Refills Start End KETOCONAZOLE 2 % TOPICAL CREAM 30 g 0 01/27/2020 Route: TOPICAL Sig: Apply 1 application to affected area twice daily. Cally nue for 1 week after rash resolves. Encounter Status:Closed by ALICIA BLOUNT MD on 01/27/20 [facility]) Normal 01-26-2020 [place] [facility] ANA IVORY ([id number]) 1940 [facility] Date Time Provider Department ([id number]) 01/26/20 ALICIA BLOUNT INTMWS During your visit today, we recorded the following informati on about you: Mansi Preston MANUFACTURING PRODUCTION TECHNICIAN 01/26/2020 2:29 PM Signed Jannette Blair from [facility] Home Health OT plan of care 2 vis its weekly for 3 weeks working on ADL, strengthening, hand writing. Clarence Berry APRN.BUSINESS ANALYSIS PROFESSIONAL 01/26/2020 2:41 PM Signed OK, see below Allergies As of Date: 01/26/2020 Noted Allergy Reaction ADHESIVE TAPE (ROSINS) 08/31/2008 4 - Hives Comments: Rash around bandaid never been tested for latex al lergy ASPIRIN 04/16/2018 15 - Contraindication-Medical [place]* Comments: GI bleed BONIVA (IBANDRONATE) 12/04/2008 8 - GI Upset Comments: Esophageal burning CARAFATE (SUCRALFATE) 04/24/2012 14 - Other: See Comments Comments: feels poorly CIPROFLOXACIN 12/01/2013 14 - Other: See Comments Comments: photosensitivity, dermatitis CODEINE 08/24/2005 8 - GI Upset IBUPROFEN 03/22/2006 8 - GI Upset IODINE 08/25/2008 11 - Vomiting LANSOPRAZOLE 11/01/2011 6 - Diarrhea METFORMIN 05/10/2011 6 - Diarrhea NEOSPORIN ([id number]-YW*08/31/2008 2 - Rash Comments: blisters PROTONIX (PANTOPRAZOLE) 01/13/2010 6 - Diarrhea RELAFEN (NABUMETONE) 03/22/2006 8 - GI Upset 11 - Vomiting ACTOS (PIOGLITAZONE HCL) 12/03/2016 7 - Swelling Date Reviewed: 01/08/2020 Reviewed by: Isabela Mendoza Revenue Field Auditor - Fully Assessed Reason for Visit: OT plan of care [Other] Prescriptions as of 01/26/2020 Sig: LANCETS Micro-lancets to work with cu* ASPIRIN 81 MG TABLET,DELAYED * Take 81 mg by mouth once paola * ATORVASTATIN 20 MG TABLET Take 1 tablet by mouth once d* LORAZEPAM 1 MG TABLET TAKE 1/2 TO 1 TABLET BY MOUTH* MIRABEGRON ER 50 MG TABLET,EX* Take 1 tablet by mouth twice * INSULIN ASPART (U-100) 100 UN* Inject 8 Units subcutaneously * GABAPENTIN 300 MG CAPSULE Take 1 capsule by mouth twice* GLIMEPIRIDE 2 MG TABLET Take 1 tablet by mouth twice * SERTRALINE 50 MG TABLET Take 1 tablet by mouth once d* PREMARIN 0.625 MG/GRAM VAGINA* APPLY 0.5 GRAMS VAGINALLY BEF * CEPHALEXIN 250 MG TABLET Take 1 tablet by mouth daily * Patient not taking: Reported on 01/27/2020 OXYBUTYNIN CHLORIDE ER 10 MG * Take 1 tablet by mouth twice * MISCELLANEOUS MEDICAL SUPPLY * Custom Orthotics (E08.40, Z* METOPROLOL SUCCINATE ER 200 M* Take 1 tablet by mouth once d * ESOMEPRAZOLE MAGNESIUM 40 MG * Take 1 capsule by mouth DAILY * INSULIN GLARGINE (U-100) 100 * Inject 24 Units subcutaneousl * BLOOD SUGAR DIAGNOSTIC STRIPS Check blood sugars 2x per day* PRESERVISION AREDS-2 ORAL Take by mouth twice daily. CHOLECALCIFEROL (VITAMIN D3) * Take 2 capsules by mouth once * PEN NEEDLE, DIABETIC 31 GAUGE* Use 1 needle for each dose. 2 * SUMATRIPTAN 50 MG TABLET Take 1 tablet by mouth. at on* Patient not taking: Reported on 01/27/2020 COMPOUNDED PRESCRIPTION Custom orthotics (E08.40, Z7* BLOOD SUGAR DIAGNOSTIC STRIPS Test blood sugar(s) 2 times d* LANCETS Test blood sugar(s) 2 times * BLOOD-GLUCOSE METER KIT 1 Each as needed. One Touch M* CAPSAICIN 0.025 % TOPICAL CRE* Apply 3 application to affect * Patient not taking: Reported on 01/27/2020 LANCETS 1 Each twice daily. DX: 250.0* DAILY MULTIVITAMIN TABLET Take one(1) tablet daily. Problem List As Of Date 01/26/2020 Noted Resolved SPRAIN ROTATOR CUFF [S43.429A] 01/10/2003 03/03/2003 Complete rupture of rotator cuff [M75.120] 03/03/20032016 OSTEOPOROSIS NOS [M81.0] 02/19/2006 ALLERGIC RHINITIS NOS [J30.9] 03/06/2006 GENERAL OSTEOARTHROSIS [M15.9] 03/06/2006 Restless legs syndrome (RLS) [G25.81] 06/19/2006 LUMBAR DISC DISPLACEMENT [M51.26] More... Enlargement of lymph nodes [R59.9] 12/20/2006 08/15/2016 INSOMNIA NOS [G47.00] 04/30/2007 LUNG NODULE [R22.2] 09/05/2007 04/30/2015 STRICKLAND'S ESOPHAGUS [K22.70] Acute gastritis without mention of hemorrhage [*10/31/2007 0 09/15/2016 Pure hypercholesterolemia [E78.00] 12/14/2009 11/11/2014 Diabetes 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 condition w*02/07/2010 More... Anxiety [F41.9] 05/03/2011 More... Tendonitis of ankle, right [M77.51] 05/03/2011 08/15/2016 C. difficile diarrhea [A04.72] 10/18/2011 09/15/2016 Esophagitis, unspecified [K20.9] 11/23/2011 IBS (irritable bowel syndrome) [K58.9] 02/01/2012 More... Cataract [H26.9] 04/17/2013 09/15/2016 More... HTN (hypertension) [I10] 08/04/2013 More... Urge urinary incontinence [N39.41] 12/16/2013 Esophageal reflux [K21.9] 10/08/2014 10/08/2014 More... DVT prophylaxis [Z29.9] 11/11/2014 08/15/2016 More... DISPOSITION AND FOLLOW-UP [V999.01] 11/11/2014 08/15/2016 More... Migraines [G43.909] 11/11/2014 More... Hypoxia [R09.02] 11/14/2014 09/15/2016 More... 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 Mouth dryness [R68.2] 11/06/2016 Hyperlipidemia [E78.5] 11/06/2016 Functional dyspepsia [K30] 08/20/2017 More... 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 Gastroesophageal reflux disease with esophagiti*08/20/2017 More... 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]11/22/2018 Encounter Status:Closed by CINTIA MACIAS LPN on 01/27/20 [facility] Telephone ([facility]) Normal 01-26-2020 [facility] ANA IVORY ([id number]) 1940 [address] [facility] Time Provider Department ([id number]) 01/26/20 ALICIA BLOUNT During your visit today, we recorded the following informati on about you: Libertad Burdick Pss 01/26/2020 3:30 PM Signed Ana Wheeler Dianelys is a patient of MD lorraine Rosario her granddaughter Coby is calling to request a new pr escription is sent to [facility] for micro lancets; she stated the lancets she has been getting are bothering her fingers and this will be much better. Please call Coby once this is completed. Patient has been identified by name and birthdate. Duration of symptoms: N/A Person calling: self Call patient at: on cell [phone] (home) [phone] (cell) Was an appointment scheduled: No Closing statement: Results or non-symptom based questions: Thank you for calling [facility], your call will be returned within the next business day. Libertad Anthonying Pss Isabela Hernandez Rosalbadal Revenue Field Auditor 01/26/2020 3:32 PM Signed Looks like patient has one touch device. Unsure what micro lancets to choose. Please advise. Thank you. Clarence Berry APRN.BUSINESS ANALYSIS PROFESSIONAL 01/27/2020 8:13 AM Signed Rx sent Allergies As of Date: 01/26/2020 Noted Allergy Reaction ADHESIVE TAPE (ROSINS) 08/31/2008 4 - Hives Comments: Rash around bandaid never been tested for latex al lergy ASPIRIN 04/16/2018 15 - Contraindication-Medical Daigle* Comments: GI bleed BONIVA (IBANDRONATE) 12/04/2008 8 - GI Upset Comments: Esophageal burning CARAFATE (SUCRALFATE) 04/24/2012 14 - Other: See Comments Comments: feels poorly CIPROFLOXACIN 12/01/2013 14 - Other: See Comments Comments: photosensitivity, dermatitis CODEINE 08/24/2005 8 - GI Upset IBUPROFEN 03/22/2006 8 - GI Upset IODINE 08/25/2008 11 - Vomiting LANSOPRAZOLE 11/01/2011 6 - Diarrhea METFORMIN 05/10/2011 6 - Diarrhea NEOSPORIN (TBEBOBIQ-ZNTWEEBACE-RH*08/31/2008 2 - Rash Comments: blisters PROTONIX (PANTOPRAZOLE) 01/13/2010 6 - Diarrhea RELAFEN (NABUMETONE) 03/22/2006 8 - GI Upset 11 - Vomiting ACTOS (PIOGLITAZONE HCL) 12/03/2016 7 - Swelling Date Reviewed: 01/08/2020 Reviewed by: Isabela Mendoza Revenue Field Auditor - Fully Assessed Reason for Visit: lancets [Other] Cmt: new prescription Order(s):Lancets lancetsMicro-lancets to work wi th current meter - One touch. Sig: Test blood sugar(s) 2 times daily. Dx: Type 2 DM - Cont rolled E11.9 , Insulin: YesDisp: 100 EachRfl: 11 Prescriptions as of 01/26/2020 Sig: LANCETS Micro-lancets to work with cu* ASPIRIN 81 MG TABLET,DELAYED * Take 81 mg by mouth once paola * ATORVASTATIN 20 MG TABLET Take 1 tablet by mouth once d* CODEINE 10 MG-GUAIFENESIN 100* Take 5 mL by mouth four times * LORAZEPAM 1 MG TABLET TAKE 1/2 TO 1 TABLET BY MOUTH* MIRABEGRON ER 50 MG TABLET,EX* Take 1 tablet by mouth twice * INSULIN ASPART (U-100) 100 UN* Inject 8 Units subcutaneously * GABAPENTIN 300 MG CAPSULE Take 1 capsule by mouth twice* GLIMEPIRIDE 2 MG TABLET Take 1 tablet by mouth twice * SERTRALINE 50 MG TABLET Take 1 tablet by mouth once d* PREMARIN 0.625 MG/GRAM VAGINA* APPLY 0.5 GRAMS VAGINALLY BEF * CEPHALEXIN 250 MG TABLET Take 1 tablet by mouth daily * Patient not taking: Reported on 01/27/2020 OXYBUTYNIN CHLORIDE ER 10 MG * Take 1 tablet by mouth twice * MISCELLANEOUS MEDICAL SUPPLY * Custom Orthotics (E08.40, Z* METOPROLOL SUCCINATE ER 200 M* Take 1 tablet by mouth once d * ESOMEPRAZOLE MAGNESIUM 40 MG * Take 1 capsule by mouth DAILY * INSULIN GLARGINE (U-100) 100 * Inject 24 Units subcutaneousl * BLOOD SUGAR DIAGNOSTIC STRIPS Check blood sugars 2x per day* PRESERVISION AREDS-2 ORAL Take by mouth twice daily. CHOLECALCIFEROL (VITAMIN D3) * Take 2 capsules by mouth once * PEN NEEDLE, DIABETIC 31 GAUGE* Use 1 needle for each dose. 2 * SUMATRIPTAN 50 MG TABLET Take 1 tablet by mouth. at on* Patient not taking: Reported on 01/27/2020 COMPOUNDED PRESCRIPTION Custom orthotics (E08.40, Z7* BLOOD SUGAR DIAGNOSTIC STRIPS Test blood sugar(s) 2 times d* LANCETS Test blood sugar(s) 2 times * BLOOD-GLUCOSE METER KIT 1 Each as needed. One Touch M* CAPSAICIN 0.025 % TOPICAL CRE* Apply 3 application to affect * Patient not taking: Reported on 01/27/2020 LANCETS 1 Each twice daily. DX: 250.0* DAILY MULTIVITAMIN TABLET Take one(1) tablet daily. Problem List As Of Date 01/26/2020 Noted Resolved SPRAIN ROTATOR CUFF [S43.429A] 01/10/2003 03/03/2003 Complete rupture of rotator cuff [M75.120] 03/03/20032016 OSTEOPOROSIS NOS [M81.0] 02/19/2006 ALLERGIC RHINITIS NOS [J30.9] 03/06/2006 GENERAL OSTEOARTHROSIS [M15.9] 03/06/2006 Restless legs syndrome (RLS) [G25.81] 06/19/2006 LUMBAR DISC DISPLACEMENT [M51.26] More... Enlargement of lymph nodes [R59.9] 12/20/2006 08/15/2016 INSOMNIA NOS [G47.00] 04/30/2007 LUNG NODULE [R22.2] 09/05/2007 04/30/2015 STRICKLAND'S ESOPHAGUS [K22.70] Acute gastritis without mention of hemorrhage [*10/31/2007 0 09/15/2016 Pure hypercholesterolemia [E78.00] 12/14/2009 11/11/2014 Diabetes 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 condition w*02/07/2010 More... Anxiety [F41.9] 05/03/2011 More... Tendonitis of ankle, right [M77.51] 05/03/2011 08/15/2016 C. difficile diarrhea [A04.72] 10/18/2011 09/15/2016 Esophagitis, unspecified [K20.9] 11/23/2011 IBS (irritable bowel syndrome) [K58.9] 02/01/2012 More... Cataract [H26.9] 04/17/2013 09/15/2016 More... HTN (hypertension) [I10] 08/04/2013 More... Urge urinary incontinence [N39.41] 12/16/2013 Esophageal reflux [K21.9] 10/08/2014 10/08/2014 More... DVT prophylaxis [Z29.9] 11/11/2014 08/15/2016 More... DISPOSITION AND FOLLOW-UP [V999.01] 11/11/2014 08/15/2016 More... Migraines [G43.909] 11/11/2014 More... Hypoxia [R09.02] 11/14/2014 09/15/2016 More... 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 Mouth dryness [R68.2] 11/06/2016 Hyperlipidemia [E78.5] 11/06/2016 Functional dyspepsia [K30] 08/20/2017 More... 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 Gastroesophageal reflux disease with esophagiti*08/20/2017 More... 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 S ig: Test blood sugar(s) 2 times daily. Dx: Type 2 DM - Controlled E11.9 , I nsulin: Yes Encounter Status:Closed by CINTIA MACIAS LPN on 01/27/20 vitamin d 25 hydroxy on 2020-01-22 Vitamin D 25 Hydroxy 43.5 31.0-80.0 ng/mL Normal 0 [facility] (37005) Comment: Result Comment: Classificati on of 25 [place] Vitamin D status: Insufficiency/Moderate Defic iency: < or = 30 ng/mL Sufficiency/Optimal Levels: 31 to 80 ng/mL Toxicity: > 100 ng/mL Test performed by chemilumin escent immunoassay. Performed By: #### FT4, TSH, HBA1C, VITD ####[facility] [address]C levelandDiana V[place] [phone] vitamin b12 on 2019 Cobalamin (Vitamin B12) 642 203-4476 pg/mL Normal 2019 [facility] [Mass/Vol] [place] ([address]) Comment: Performed By: #### B12, SERF OL, KLFRS ####[facility] AveClakehealth tripoint medical centerandKristina [place] [address] [phone] urinalysis with microscopic on 2020-01-22 Bilirubin, Urine Negative Negative Normal 01-22-2020 [facility] (11182) Comment: Performed By: #### UAWMIC ## ##[facility] AveClevelandDiana [place] [phone] Clarity (U) Slightly Cloudy Clear Critically abnormal [facility] (59638) Comment: Performed By: #### UAWMIC ## ##[facility] [address] AveClevelandDiana [place] [phone] Color (U) Light Yellow Yellow Critically abnormal 020 [facility] (81317) Comment: Performed By: #### UAWMIC ## ##[facility] AveClevelandDiana [place] [phone] Comments SEE COMMENT Normal 01-22-2020 [facility] (03825) Comment: Result Comment: N/A Performed By: #### UAWMIC ## ##[facility]ClevelandDiana [place] [phone] Epithelial cells LM.HPF SEE COMMENT Normal 01-11 [facility] (Urine sed) [#/Area] [place] (58672) Comment: Result Comment: Few Squamous Epithelial Cells Performed By: #### UAWMIC ## ##[facility]ClevelandDiana [place] [phone] Glucose Ql (U) Negative Negative Normal 01-22-2020 [facility] (50364) Comment: Performed By: #### UAWMIC ## ##[place] [address], [place] [phone] Hemoglobin/Blood,Ur Negative Negative Normal 01-22-2020 [facility] (39409) Comment: Performed By: #### UAWMIC ## ##[place] [address], [place] [phone] Ketones Ql (U) Negative Negative Normal 01-22-2020 [facility] (53612) Comment: Performed By: #### UAWMIC ## ##[place] [address], [place] [phone] Leukest 2+ Negative Critically abnormal 01-22-2020 [facility] (73914) Comment: Performed By: #### UAWMIC ## ##[place] [address], [place] [phone] Nitrite Ql (U) Negative Negative Normal 01-22-2020 [facility] (62334) Comment: Performed By: #### UAWMIC ## ##[place] [address] RaNA TherapeuticsHelendale, [place] [phone] pH (Bld) 6.0 5.0-8.0 Normal 01-22-2020 [facility] (54423) Comment: Performed By: #### UAWMIC ## ##[place] [address], [place] [phone] Protein (U) [Mass/Vol] Negative Negative mg/dL Normal 020 [facility] (72662) Comment: Performed By: #### UAWMIC ## ##[place] [address], [place] [phone] RBC (U) [#/Vol] 0-3 0-3 Normal 01-22-2020 [facility] (73987) Comment: Performed By: #### UAWMIC ## ##[facility]ClevelandD[address] [place] [phone] Specific [place], Ur 1.014 1.005-1.030 Normal 020 [facility] (90761) Comment: Performed By: #### UAWMIC ## ##[facility]Cleveland[address] [phone] Urine Sam Comment SEE COMMENT Normal 01-22-2020 [facility] (17961) Comment: Result Comment: N/A Performed By: #### UAWMIC ## ##[place] [address]CSara [place] [phone] Urobilinogen Qn (U) Negative Negative Normal 01-22-2020 [facility] (33963) Comment: Performed By: #### UAWMIC ## ##[place] [address] [place] [phone] WBC (Bld) [#/Vol] 6-10 0-5 Critically abnormal [facility] (69528) Comment: Performed By: #### UAWMIC ## ##[place] [address] [place] [phone] tsh on 2020-01-22 TSH Qn 3.670 0.270-4.200 uU/mL Normal 01-22-2020 [facility] (43791) Comment: Performed By: #### FT4, TSH, HBA1C, VITD ####[facility] levelandD[place] [phone] kappa/abraham,free,ser on 2020-01-22 K/L Ratio, Serum 1.69 0.26-1.65 High 01-22-2020 [facility] (94025) Comment: Performed By: #### B12, SERF OL, KLFRS ####[facility] AveClevelMary [place] [address] [phone] [place], Free, Serum 19.8 3.30-19.40 mg/L High 01-22-2020 [facility] (48883) Comment: Result Comment: Test perform ed by an immunoturbidimetric assay on Optilite instrument from [facility] . Immunoglobulin free light chain assay results should be interpreted in con junction with other tests and in correlation with clinical picture. Performed By: #### B12, SERF OL, KLFRS ####[facility] AveCJorge [place] [address] [phone] Lambda, Free, Serum 11.7 5.7-26.3 mg/L Normal 01-22-2020 [facility] (32448) Comment: Result Comment: Test perform ed by an immunoturbidimetric assay on Optilite instrument from [facility] . Immunoglobulin free light chain assay results should be interpreted in con junction with other tests and in correlation with clinical picture. Performed By: #### B12, SERF OL, KLFRS ####[place] [id number] AveCJorge [place] [address] [phone] hemoglobin a1c on 2 HbA1c (Bld) [Mass fraction] 7.2 4.3-5.6 % High [facility] (06469) Comment: Result Comment: [place] Edilma betes Association guidelines indicate that patients with HgbA1c in the range 5.7-6.4% are at increased risk for development of diabetes, and intervention by lifestyle modification may be beneficial. HgbA1c greater o r equal to 6.5% is considered diagnostic of diabetes. Performed By: #### FT4, TSH, HBA1C, VITD ####[facility] [place], [place] [phone] HbA1c (Bld) [Mass fraction] 160 mg/dL Normal [facility] (73142) Comment: Result Comment: eAG: (Estima amando average glucose) is a calculated value from HgbA1c and is brand representative of the average blood glucose level in the last 2-3 month period. Performed By: #### FT4, TSH, HBA1C, VITD ####[facility] [address] [place], [place] [phone] free t4 on Free T4 [Mass/Vol] 1.1 0.9-1.7 ng/dL Normal 01-22-2020 [facility] (48375) Comment: Performed By: #### FT4, TSH, HBA1C, VITD ####[facility] [address] [place], [place] [phone] folate, serum on 30-01-11 Folate [Mass/Vol] 13.8 >4.7 ng/mL Normal 01-22-2020 C [facility] (86231) Comment: Performed By: #### B12, SERF OL, KLFRS ####[facility] [address], [place] [phone] comp metabolic panel on 2020-01-22 Albumin [Mass/Vol] 4.3 3.9-4.9 g/dL Normal 01-22-2020 [facility] (79813) ALP [Catalytic 83 34-123 U/L Normal 01-22-2020 [facility] activity/Vol] [place] and (28760) ALT [Catalytic 14 7-38 U/L Normal 01-22-2020 [facility] activity/Vol] [place] (21955) Anion gap 9 9-18 mmol/L Normal 01-22-2020 [facility] [Moles/Vol] [place] d (68861) AST [Catalytic 14 13-35 U/L Normal 01-22-2020 [facility] activity/Vol] [place] and (66118) Bilirubin [Mass/Vol] 0.4 0.2-1.3 mg/dL Normal 0 [facility] (46715) Calcium [Mass/Vol] 9.3 8.5-10.2 mg/dL Normal 01-22-2020 [facility] (07627) Chloride [Moles/Vol] 103 97-105 mmol/L Normal 0 [facility] (04532) CO2 [Moles/Vol] 27 22-30 mmol/L Normal 01-22-2020 [facility] (28912) Creatinine 0.61 0.58-0.96 mg/dL Normal 01-22-2020 [facility] [Mass/Vol] [place] (88679) eGFR- Amer. >60 Normal 01-22-2020 [facility] (48865) GFR/1.73 sq M >60 mL/min/{1.73_m Normal 01-22-2020 [facility] predicted among 2} [place] (49561) non-blacks MDRD (S/P/Bld) [Vol rate/Area] Comment: Result Comment: eGFR (Estima amando GFR) Units of measure: mL/min/1.73 meters squared eGFR is derived from the ree xpressed MDRD Study equation using the following parameters: serum creatinine, age, gender and race. The creatinine assay has been calibrated to be traceable to IDMS. An eGFR <60 mL/min/1.73m2 fo r >3 months is consistent with chronic kidney disease. Refer to KDOQI guidelines for clinical interpretation. In patients with unstable re nal function, e.g. those with acute kidney injury, the eGFR may not accurately reflect actual GFR. Glucose [Mass/Vol] 168 74-99 mg/dL High 01-22-2020 [facility] (46909) Comment: Result Comment: The [place] Diabetes Association (ADA) provides guidance for cutoff values for fasting glucose and random glucose. The ADA defines fasting as no caloric intake for at least 8 hours. Fas ting plasma glucose results between 100 to 125 mg/dL indicate increased risk for diabetes (prediabetes). Fasting plasma glucose resul ts greater than or equal to 126 mg/dL meet the criteria for diagnosis of diabetes. In the absence of unequivocal hyperglycemia, results should be confirmed by repeat testing. In a patient with classic s ymptoms of hyperglycemia or hyperglycemic crisis, random plasma glucose results greater than or equal to 200 mg/dL meet the criteria for diagnosis of diabetes. Reference: Standards of [facility] Care in Diabetes 2016, [place] Diabetes Association. Diabetes Care. 2016.39(Suppl 1). Potassium [Moles/Vol] 4.2 3.7-5.1 mmol/L Normal 01-22-20 20 [facility] (84546) Protein [Mass/Vol] 7.2 6.3-8.0 g/dL Normal 01-22-2020 [facility] (49234) Sodium [Moles/Vol] 139 136-144 mmol/L Normal 01-22-2020 [facility] (04311) Urea nitrogen [Mass/Vol] 12 7-21 mg/dL Normal 01-21 [facility] (36082) cbc on 2020-01-22 Absolute nRBC <0.01 <0.01 Normal 01-22-2020 [facility] (06763) Erythrocyte distribution 12.7 11.5-15.0 % Normal 01-21 [facility] width (RBC) [Ratio] [place] (80262) Hematocrit (Bld) [Volume 38.1 36.0-46.0 % Normal 01-21 [facility] fraction] [place] (46204) Hemoglobin (Bld) 13.2 11.5-15.5 g/dL Normal 01-22-2020 Cl [facility] [Mass/Vol] [place] (77418) MCH (RBC) [Entitic mass] 31.2 26.0-34.0 pG Normal 01-21 [facility] (32303) MCHC (RBC) [Mass/Vol] 34.6 30.5-36.0 g/dL Normal 01-22-20 20 [facility] (28762) MCV (RBC) [Entitic vol] 90.1 80.0-100.0 fL Normal 01-21 [facility] (77259) Platelet mean volume 9.4 9.0-12.7 fL Normal 0 [facility] (Bld) [Entitic vol] [place] (90576) Platelets (Bld) [#/Vol] 219 150-400 k/uL Normal 2019 [facility] (66793) RBC (Bld) [#/Vol] 4.23 3.90-5.20 m/uL Normal 01-22-2020 C [facility] (21261) WBC (Bld) [#/Vol] 5.65 3.70-11.00 k/uL Normal 01-22-2020 [facility] (84735) albumin/creat ratio on 2020-01-22 Albumin Urine Random <12.0 Normal 0 [facility] (68148) Comment: Performed By: #### UACR #### [facility] [address] [place], [place] [phone] Albumin/Creat Ratio Not calculated <30 Normal 01-21 [facility] (04487) Comment: Performed By: #### UACR #### [facility] [address] [place], [place] [phone] Creatinine,Urine,Ran 68.1 20-300 mg/dL Normal 0 [facility] (10195) Comment: Performed By: #### UACR #### [facility] [place], [place] [phone] cnpn on 2020-01-21 CNPN Telephone (INTMWS) Normal 01-21-2020 [place] [facility] ANA IVORY ([id number]) 1940 [facility] Date Time Provider Department () 01/21/20 ALICIA BLOUNT INTMWS During your visit today, we recorded the following informati on about you: Minor Zamora 01/21/2020 1:45 PM Signed Marlene Osorio / [facility] PT calls with plan of care. 2x week x4 weeks for balance ; fall prevention; gait and transfer training, HEP. Says patient is s/p CVA and had OT and ST. Patient is still showing deficits for both. Okay to order? Navya Thrasher APRN.CNP 01/21/2020 2:46 PM Signed MICHAEL Rosario LPN 01/21/2020 3:02 PM Signed JOSHUA on secure voicemail. Allergies As of Date: 01/21/2020 Noted Allergy Reaction ADHESIVE TAPE (ROSINS) 08/31/2008 4 - Hives Comments: Rash around bandaid never been tested for latex al lergy ASPIRIN 04/16/2018 15 - Contraindication-Medical Daigle* Comments: GI bleed BONIVA (IBANDRONATE) 12/04/2008 8 - GI Upset Comments: Esophageal burning CARAFATE (SUCRALFATE) 04/24/2012 14 - Other: See Comments Comments: feels poorly CIPROFLOXACIN 12/01/2013 14 - Other: See Comments Comments: photosensitivity, dermatitis CODEINE 08/24/2005 8 - GI Upset IBUPROFEN 03/22/2006 8 - GI Upset IODINE 08/25/2008 11 - Vomiting LANSOPRAZOLE 11/01/2011 6 - Diarrhea METFORMIN 05/10/2011 6 - Diarrhea NEOSPORIN (NGFDURAF-[id number]-WN*08/31/2008 2 - Rash Comments: blisters PROTONIX (PANTOPRAZOLE) 01/13/2010 6 - Diarrhea RELAFEN (NABUMETONE) 03/22/2006 8 - GI Upset 11 - Vomiting ACTOS (PIOGLITAZONE HCL) 12/03/2016 7 - Swelling Date Reviewed: 01/08/2020 Reviewed by: Isabela Mendoza Revenue Field Auditor - Fully Assessed Reason for Visit: PT plan of care [Other] Prescriptions as of 01/21/2020 Sig: ASPIRIN 81 MG TABLET,DELAYED * Take 81 mg by mouth once paola * ATORVASTATIN 20 MG TABLET Take 1 tablet by mouth once d* CODEINE 10 MG-GUAIFENESIN 100* Take 5 mL by mouth four times * LORAZEPAM 1 MG TABLET TAKE 1/2 TO 1 TABLET BY MOUTH* MIRABEGRON ER 50 MG TABLET,EX* Take 1 tablet by mouth twice * INSULIN ASPART (U-100) 100 UN* Inject 8 Units subcutaneously * GABAPENTIN 300 MG CAPSULE Take 1 capsule by mouth twice* GLIMEPIRIDE 2 MG TABLET Take 1 tablet by mouth twice * SERTRALINE 50 MG TABLET Take 1 tablet by mouth once d* PREMARIN 0.625 MG/GRAM VAGINA* APPLY 0.5 GRAMS VAGINALLY BEF * CEPHALEXIN 250 MG TABLET Take 1 tablet by mouth daily * OXYBUTYNIN CHLORIDE ER 10 MG * Take 1 tablet by mouth twice * MISCELLANEOUS MEDICAL SUPPLY * Custom Orthotics (E08.40, Z* METOPROLOL SUCCINATE ER 200 M* Take 1 tablet by mouth once d * ESOMEPRAZOLE MAGNESIUM 40 MG * Take 1 capsule by mouth DAILY * INSULIN GLARGINE (U-100) 100 * Inject 24 Units subcutaneousl * BLOOD SUGAR DIAGNOSTIC STRIPS Check blood sugars 2x per day* PRESERVISION AREDS-2 ORAL Take by mouth twice daily. CHOLECALCIFEROL (VITAMIN D3) * Take 2 capsules by mouth once * PEN NEEDLE, DIABETIC 31 GAUGE* Use 1 needle for each dose. 2 * SUMATRIPTAN 50 MG TABLET Take 1 tablet by mouth. at on* COMPOUNDED PRESCRIPTION Custom orthotics (E08.40, Z7* BLOOD SUGAR DIAGNOSTIC STRIPS Test blood sugar(s) 2 times d* LANCETS Test blood sugar(s) 2 times * BLOOD-GLUCOSE METER KIT 1 Each as needed. One Touch M* CAPSAICIN 0.025 % TOPICAL CRE* Apply 3 application to affect * LANCETS 1 Each twice daily. DX: 250.0* DAILY MULTIVITAMIN TABLET Take one(1) tablet daily. Problem List As Of Date 01/21/2020 Noted Resolved SPRAIN ROTATOR CUFF [S43.429A] 01/10/2003 03/03/2003 Complete rupture of rotator cuff [M75.120] 03/03/20032016 OSTEOPOROSIS NOS [M81.0] 02/19/2006 ALLERGIC RHINITIS NOS [J30.9] 03/06/2006 GENERAL OSTEOARTHROSIS [M15.9] 03/06/2006 Restless legs syndrome (RLS) [G25.81] 06/19/2006 LUMBAR DISC DISPLACEMENT [M51.26] More... Enlargement of lymph nodes [R59.9] 12/20/2006 08/15/2016 INSOMNIA NOS [G47.00] 04/30/2007 LUNG NODULE [R22.2] 09/05/2007 04/30/2015 STRICKLAND'S ESOPHAGUS [K22.70] Acute gastritis without mention of hemorrhage [*10/31/2007 0 09/15/2016 Pure hypercholesterolemia [E78.00] 12/14/2009 11/11/2014 Diabetes 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 condition w*02/07/2010 More... Anxiety [F41.9] 05/03/2011 More... Tendonitis of ankle, right [M77.51] 05/03/2011 08/15/2016 C. difficile diarrhea [A04.72] 10/18/2011 09/15/2016 Esophagitis, unspecified [K20.9] 11/23/2011 IBS (irritable bowel syndrome) [K58.9] 02/01/2012 More... Cataract [H26.9] 04/17/2013 09/15/2016 More... HTN (hypertension) [I10] 08/04/2013 More... Urge urinary incontinence [N39.41] 12/16/2013 Esophageal reflux [K21.9] 10/08/2014 10/08/2014 More... DVT prophylaxis [Z29.9] 11/11/2014 08/15/2016 More... DISPOSITION AND FOLLOW-UP [V999.01] 11/11/2014 08/15/2016 More... Migraines [G43.909] 11/11/2014 More... Hypoxia [R09.02] 11/14/2014 09/15/2016 More... 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 Mouth dryness [R68.2] 11/06/2016 Hyperlipidemia [E78.5] 11/06/2016 Functional dyspepsia [K30] 08/20/2017 More... 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 Gastroesophageal reflux disease with esophagiti*08/20/2017 More... 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 Would like patient to see Dr. Munguia at [place], please fax to #[phone]. Please review and advise. MANNY Santamaria MD 01/20/2020 10:20 AM Signed Filed order Noted granddaughter requested referral to Dr. Munguia. Have patient let me know how sugars are doing as well. Mansi Preston MANUFACTURING PRODUCTION TECHNICIAN 01/20/2020 10:48 AM Signed Phoned grand daughter Coby and hugo e referral faxed to Dr Munguia office and have that office send PCP information with understanding. Allergies As of Date: 01/20/2020 Noted Allergy Reaction ADHESIVE TAPE (ROSINS) 08/31/2008 4 - Hives Comments: Rash around bandaid never been tested for latex al lergy ASPIRIN 04/16/2018 15 - Contraindication-Medical [place]* Comments: GI bleed BONIVA (IBANDRONATE) 12/04/2008 8 - GI Upset Comments: Esophageal burning CARAFATE (SUCRALFATE) 04/24/2012 14 - Other: See Comments Comments: feels poorly CIPROFLOXACIN 12/01/2013 14 - Other: See Comments Comments: photosensitivity, dermatitis CODEINE 08/24/2005 8 - GI Upset IBUPROFEN 03/22/2006 8 - GI Upset IODINE 08/25/2008 11 - Vomiting LANSOPRAZOLE 11/01/2011 6 - Diarrhea METFORMIN 05/10/2011 6 - Diarrhea NEOSPORIN ([id number]*08/31/2008 2 - Rash Comments: blisters PROTONIX (PANTOPRAZOLE) 01/13/2010 6 - Diarrhea RELAFEN (NABUMETONE) 03/22/2006 8 - GI Upset 11 - Vomiting ACTOS (PIOGLITAZONE HCL) 12/03/2016 7 - Swelling Date Reviewed: 01/08/2020 Reviewed by: Isabela Mendoza Revenue Field Auditor - Fully Assessed Reason for Visit: endocrinology consult [Other] Primary Visit Diagnosis:Type 2 diabetes mellitus without c omplication, with long-term current use of insulin ([facility]) [E11.9, Z79.4] Other Visit Diagnosis:Type 2 diabetes mellitus with hypergly cemia, with long-term current use of insulin ([facility]) [E11.65, Z79.4] Order(s):CONSULT TO ENDOCRINOLOGY [9007] Order #: [id number] Qty: 1 FUTURE Prescriptions as of 01/20/2020 Sig: ASPIRIN 81 MG TABLET,DELAYED * Take 81 mg by mouth once paola * ATORVASTATIN 20 MG TABLET Take 1 tablet by mouth once d* CODEINE 10 MG-GUAIFENESIN 100* Take 5 mL by mouth four times * LORAZEPAM 1 MG TABLET TAKE 1/2 TO 1 TABLET BY MOUTH* MIRABEGRON ER 50 MG TABLET,EX* Take 1 tablet by mouth twice * INSULIN ASPART (U-100) 100 UN* Inject 8 Units subcutaneously * GABAPENTIN 300 MG CAPSULE Take 1 capsule by mouth twice* GLIMEPIRIDE 2 MG TABLET Take 1 tablet by mouth twice * SERTRALINE 50 MG TABLET Take 1 tablet by mouth once d* PREMARIN 0.625 MG/GRAM VAGINA* APPLY 0.5 GRAMS VAGINALLY BEF * CEPHALEXIN 250 MG TABLET Take 1 tablet by mouth daily * OXYBUTYNIN CHLORIDE ER 10 MG * Take 1 tablet by mouth twice * MISCELLANEOUS MEDICAL SUPPLY * Custom Orthotics (E08.40, Z* METOPROLOL SUCCINATE ER 200 M* Take 1 tablet by mouth once d * ESOMEPRAZOLE MAGNESIUM 40 MG * Take 1 capsule by mouth DAILY * INSULIN GLARGINE (U-100) 100 * Inject 24 Units subcutaneousl * BLOOD SUGAR DIAGNOSTIC STRIPS Check blood sugars 2x per day* PRESERVISION AREDS-2 ORAL Take by mouth twice daily. CHOLECALCIFEROL (VITAMIN D3) * Take 2 capsules by mouth once * PEN NEEDLE, DIABETIC 31 GAUGE* Use 1 needle for each dose. 2 * SUMATRIPTAN 50 MG TABLET Take 1 tablet by mouth. at on* COMPOUNDED PRESCRIPTION Custom orthotics (E08.40, Z7* BLOOD SUGAR DIAGNOSTIC STRIPS Test blood sugar(s) 2 times d* LANCETS Test blood sugar(s) 2 times * BLOOD-GLUCOSE METER KIT 1 Each as needed. One Touch M* CAPSAICIN 0.025 % TOPICAL CRE* Apply 3 application to affect * LANCETS 1 Each twice daily. DX: 250.0* DAILY MULTIVITAMIN TABLET Take one(1) tablet daily. Problem List As Of Date 01/20/2020 Noted Resolved SPRAIN ROTATOR CUFF [S43.429A] 01/10/2003 03/03/2003 Complete rupture of rotator cuff [M75.120] 03/03/20032016 OSTEOPOROSIS NOS [M81.0] 02/19/2006 ALLERGIC RHINITIS NOS [J30.9] 03/06/2006 GENERAL OSTEOARTHROSIS [M15.9] 03/06/2006 Restless legs syndrome (RLS) [G25.81] 06/19/2006 LUMBAR DISC DISPLACEMENT [M51.26] More... Enlargement of lymph nodes [R59.9] 12/20/2006 08/15/2016 INSOMNIA NOS [G47.00] 04/30/2007 LUNG NODULE [R22.2] 09/05/2007 04/30/2015 STRICKLAND'S ESOPHAGUS [K22.70] Acute gastritis without mention of hemorrhage [*10/31/2007 0 09/15/2016 Pure hypercholesterolemia [E78.00] 12/14/2009 11/11/2014 Diabetes 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 condition w*02/07/2010 More... Anxiety [F41.9] 05/03/2011 More... Tendonitis of ankle, right [M77.51] 05/03/2011 08/15/2016 C. difficile diarrhea [A04.72] 10/18/2011 09/15/2016 Esophagitis, unspecified [K20.9] 11/23/2011 IBS (irritable bowel syndrome) [K58.9] 02/01/2012 More... Cataract [H26.9] 04/17/2013 09/15/2016 More... HTN (hypertension) [I10] 08/04/2013 More... Urge urinary incontinence [N39.41] 12/16/2013 Esophageal reflux [K21.9] 10/08/2014 10/08/2014 More... DVT prophylaxis [Z29.9] 11/11/2014 08/15/2016 More... DISPOSITION AND FOLLOW-UP [V999.01] 11/11/2014 08/15/2016 More... Migraines [G43.909] 11/11/2014 More... Hypoxia [R09.02] 11/14/2014 09/15/2016 More... 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 Mouth dryness [R68.2] 11/06/2016 Hyperlipidemia [E78.5] 11/06/2016 Functional dyspepsia [K30] 08/20/2017 More... 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 Gastroesophageal reflux disease with esophagiti*08/20/2017 More... 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 Author Type: Physician Type: Progress Notes Filed: 01/19/2020 12:04 AM Note Text: This note was created using Embarklyriter. Subjective Ana Ivory is a 79 year old female. Transitional Care Management Progress Note The patients TCM visit was performed within the 7 days of di scharge. Patient's Date of discharge: 01/03/20 Date of initial coordinator contact after discharge: 01/06/20 Discharge diagnosis: CVA Medication review completed Yes Alicia Blount MD Provider Documentation: In follow-up of hospitalization, Ana Ivory is a 79 ye ar old female with the chief complaint of stroke. Review discharge summary . Patient was admitted for evaluation of right sided weakness and decr eased sensation that had started the day prior to presenting in e emergency department at [facility]. Also noticed decre ased ability to control her arm, then noted trouble with standing and was in the shower.. Discharge summary noted right upper extremity atax ia and right hemisensory deficit and unsteady gait. MRI was negative for acute infarct but did show a small lacunar infarct. CTA showed rig ht ICA with 50-69% stenosis. MRA neck showed right internal carotid shawanda ry 50-69% stenosis. Echocardiogram was done. Still with weakness. Gets tingling right UE, LE and face Most of the time hand th at way. Mouth symptoms comes and goes. Seems like there were signs of this prior to day before hosp ital stay. Weakness is better--noted that able to walk now with use of walker; not able to walk when first admitted to hospital. Control of right UE returned. Had thought was her neck at first and went to chiropractor. Has appointment with Dr. Finney 01/14. Neuro. Tolerating atorvastatin increased dose well. Still needs cough syrup for prn use. Noted sugar was high whole time in the hospital. Headaches noted but not as severe as when was in the hospita l. Was stressed out since no visitors allowed. Needing walker for balance. Needs to use in home unless has something to steady herself like in the kitchen. Prefers home PT/OT. Getting coordination back slowly. Able to write but handwriting not same. Weakness with holding carton of milk. Fasting sugars in AM 99 to 124. noted that had issues with balance before till took a few steps.. I have reviewed the patient?s last hospital course including diagnostic testing performed during this hospitalization, their dischar ge medications, and my assessment and plan with the patient and any family members present at today?s visit. TRANSITION CARE MANAGEMENT (TCM) INITIAL CONTACT Sort Manager Outreach Provider Action/FYI: Initial contact with patient post discharge, spoke to myrtle sumner Patient identified by name and . TRANSITION CARE MANAGEMENT INITIAL OUTREACH DOCUMENTATION: Date of Outreach: 01/06/2020 Outreach Attempt 1: Contact Made Date of Discharge 01/03/2020 Some recent data might be hidden SUMMARY: -Pt discharged from [facility] on 01/03/20. -Admitted for: CVA Do you have a hospital follow up appointment with your PCP? Appointment on 01/08/20 with pcp. Yes. Remind patient of appointment date, time, and location. If not within 14 calendar days of discharge - please reschedule acc ordingly. MEDICATIONS: Many patients have questions or concerns about their medicat ions once they are home. Were you prescribed any new medications? If yes, what are those medications? Asa 81 mg daily Atorvastatin 20 mg daily Were you told to hold any medications? no Were any of your medications discontinued? No Do you have any questions about getting or taking your medic ations? No Your discharge instructions/After visit Summary (AVS) are im portant in guiding you through the recovery process. Is there anything I might help you understand? No Do you have all the necessary equipment and supplies at home ? Yes Medical records from recent hospitalization: Placed for provider to review. Pt reports she does have a follow up appt with Dr. Pandya . 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 difficile diarrhea 10/18/2011 - Cataract 04/17/2013 [facility], Dr. Dada Rodríguez. Mild cataract in L eye- no need for cataract surgery at this time. Continue to follow u p the cataract. 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 At thi s time, we anticipate that the patient will be discharged home once cli nically stable. Plan: - Discuss needs with patient. - Collaborate [employer] Case management to facilitate DC process - Will continue to evalu ate during the post op period. - Desat study 11/14/14: patient will need home oxygen (2 L with exertion only) - Discharge home today with home ca re for assistance with chest tube to [place]. Return to [facility] on Sun11/18/[address] removal . - Enlargement of lymph nodes 12/20/2006 - Esophagitis, unspecified - Hemorrhage of gastrointestinal tract, unspecified - Hyperreflexia 08/02/2011 - Hypertension - Hypoxia 11/14/2014 Desat study done 11/14/14: Home oxygen needed (2 L/min via real al cannula with exertion and while sleeping). A face to face encounter was performed during this hospital admission regarding the need for oxygen . The patient verbalized understanding and consents to this therapy. - LVATS ODALIS Lobectomy 11/05/2014 74 year old never smoker who had a nodule identified on a sc reening scan in the past due to a family concern regarding asbestosis. Th e nodule slowly grew from 1.0 to 1.5 cm in about 6yrs. 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 On 11/10/14, Dr. Villagomez performed video assisted left upper lobectomy. Ramirez drain removed POD 4, air leak in CT Plan: -Chest tube to heimlich valve. Monitor air leak and daily yields. Discharge home with heimlich -Pain management -Out o f bed, cough, deep breathe, acapella, frequent ambulation. -Carb controlle d diet . - Migraines 11/11/2014 - Orthostatic hypotension vasovagal syncope - Osteoporosis, unspecified - Snoring - Tendonitis of ankle, right 05/03/2011 - Type II or unspecified type diabetes mellitus without ment ion of complication, not stated as uncontrolled 02/07/2010 - Urge urinary incontinence 12/16/2013 - Variants of migraine, not elsewhere classified, without me ntion of intractable migraine without mention of status migrainosus Current Outpatient Medications Medication Sig - aspirin, enteric coated (ASPIRIN, ENTERIC COATED) 81 mg EC tablet Take 81 mg by mouth once daily. - atorvastatin (LIPITOR) 20 mg tablet Take 1 tablet by mouth once daily. - LORazepam (ATIVAN) 1 mg tablet TAKE 1/2 TO 1 TABLET BY EZIO TH EVERY DAY NEEDED FOR FOR ANXIETY - mirabegron (MYRBETRIQ) 50 mg Tb24 Take 1 tablet by mouth t wice daily. - insulin aspart U-100 (NOVOLOG FLEXPEN U-100 INSULIN) 100 u nit/mL (3 mL) Inject 8 Units subcutaneously twice daily with meals. Adjust as directed - gabapentin (NEURONTIN) 300 mg capsule Take 1 capsule by mo uth twice daily for 180 days. Morning and bedtime - glimepiride (AMARYL) 2 mg tablet Take 1 tablet by mouth tw ice daily with meals. - sertraline (ZOLOFT) 50 mg tablet Take 1 tablet by mouth on ce daily. - PREMARIN vaginal cream APPLY 0.5 GRAMS VAGINALLY BEFORE BE D EVERY NIGHT FOR 14 DAYS THEN USE TWICE A WEEK FOR 3 MONTHS - Cephalexin 250 mg tab Take 1 tablet by mouth daily at bedt dinorah. (Dr Don) - oxybutynin ER (DITROPAN XL) 10 mg 24 hr tablet Take 1 tabl et by mouth twice daily. (Dr Don) - Miscellaneous Medical [facility] [place] Custom Orthotics (E08.40 , Z79.4) 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, with long-term current use of insulin - metoprolol succinate ER (TOPROL XL) 200 mg 24 hr tablet Ta ke 1 tablet by mouth once daily. - esomeprazole (NEXIUM) 40 mg capsule Take 1 capsule by mout h DAILY (6 AM). - insulin glargine (LANTUS SOLOSTAR U-100 INSULIN) 100 unit/ mL (3 mL) inpn Inject 24 Units subcutaneously daily at bedtime. - blood sugar diagnostic (EASY TOUCH TEST STRIP) test strip Check blood sugars 2x per day and as needed Dx: E11.9 insulin: yes - vit C/E/Zn/coppr/lutein/zeaxan (PRESERVISION AREDS-2 ORAL) Take by mouth twice daily. - Cholecalciferol, Vitamin D3, 1,000 unit cap Take 2 capsule s by mouth once daily. - Insulin Troy, Disposable, (EASY TOUCH) 31 gauge x 3/16 ndle Use 1 needle for each dose. 2x daily - SUMAtriptan (IMITREX) 50 mg tablet Take 1 tablet by mouth. at onset of headache. May take another tablet as needed one hour later. - COMPOUNDED PRESCRIPTION Custom orthotics (E08.40, Z79.4) D iabetes 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 condition with diabetic neuropath y, with long-term current use of insulin - blood sugar diagnostic (ONETOUCH ULTRA TEST) test strip Te st blood sugar(s) 2 times daily. Dx: Type 2 DM - Controlled E11.9 Ins ulin: Yes - Lancets (ONETOUCH ULTRASOFT LANCETS) lancets Test blood daigle gar(s) 2 times daily. Dx: Type 2 DM - Controlled E11.9 , Insulin: Yes - Blood-Glucose Meter (ONETOUCH ULTRA2) monitoring kit 1 Eac h as needed. One Touch Meter Kit Diagnosis: Type 2 DM - Controlled E11.9 - capsaicin (ZOSTRIX) 0.025 % cream Apply 3 application to a ffected area three times daily. - Lancets (EASY TOUCH LANCETS) lancets 1 Each twice daily. D X: 250.00 insulin - multivitamins(DAILY MULTIVITAMIN TAB) Take one(1) tablet d aily. - codeine-guaiFENesin (VIRTUSSIN AC) 10-100 mg/5 mL syrup Ta ke 5 mL by mouth four times daily as needed for up to 7 days. No current facility-administered medications for this visit. Review of Systems Objective BP 110/78 Pulse 70 Temp (!) 35.6 ?C (96 ?F) (Temporal) Resp 16 Wt 58.5 kg (129 lb) SpO2 100% BMI 23.22 kg/m? Physical Exam Vitals signs reviewed. Constitutional: Appearance: She is well-developed and normal weight. HENT: Head: Normocephalic and atraumatic. Right Ear: External ear normal. Left Ear: External ear normal. Nose: Nose normal. Eyes: General: No visual field deficit or scleral icterus. Extraocular Movements: Extraocular movements intact. Conjunctiva/sclera: Conjunctivae normal. Pupils: Pupils are equal, round, and reactive to light. Neck: Thyroid: No thyromegaly. Cardiovascular: Rate and Rhythm: Normal rate and regular rhythm. Pulses: Normal pulses. Heart sounds: Normal heart sounds. No murmur. No friction ru b. No gallop. Pulmonary: Effort: Pulmonary effort is normal. Breath sounds: Normal breath sounds. Abdominal: General: There is no distension. Palpations: There is no mass. Tenderness: There is no abdominal tenderness. Musculoskeletal: Normal range of motion. General: No deformity. Lymphadenopathy: Cervical: No cervical adenopathy. Skin: General: Skin is warm and dry. Coloration: Skin is not jaundiced or pale. Findings: No rash. Neurological: Mental Status: She is alert and oriented to person, place, a nd time. Cranial Nerves: No cranial nerve deficit or facial asymmetry . Sensory: No sensory deficit. Motor: Weakness present. No atrophy. Coordination: Heel to Jones Test abnormal (Right side--needs to really concentrate to perform test and not able to do as quickly as on left). Gait: Gait abnormal (Not able to balance without walker; wal ks well with use of wheeled walker). Psychiatric: Attention and Perception: Attention normal. Mood and Affect: Mood and affect normal. Speech: Speech normal. Behavior: Behavior normal. Thought Content: Thought content normal. Cognition and Memory: Cognition normal. Judgment: Judgment normal. Assessment and Plan Encounter Diagnosis ICD-10-CM 1. Stroke determined by clinical assessment ([facility]) I63.9 Left hemispheric with right sided weakness though MRI did no t show more than a small lacunar infarct on left 2. Personal history of stroke with current residual effects I69.30 3. 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 Right upper and lower extremity and right face tingling R 20.2 Intermittent in face/mouth. Hand most of the time 5. Chronic cough R05 codeine-guaiFENesin (VIRTUSSIN AC) 10-1 00 mg/5 mL syrup 2014 PFT showed moderate obstruction after surgery 6. Type 2 diabetes mellitus without complication, with long- term current use of insulin ([facility]) E11.9 Z79.4 Discussed hospital stay and evaluation and treatment. Follow up with neurology. Vascular follow up as discussed fo r carotid artery stenosis. Continue present meds. Tolerating statin dose. Home PT/OT/ST. Further evaluation and treatment as indicated . Issues with cough noted. Cough med prn helps. Noted prior PF Ts. No acute issues with signs of COPD exacerbation or need for inhalers noted. Consider PFTs down the road. Hold off for now given COVID 19 precautions. Blood sugars controlled. Continue present management. Above issues addressed with patient. Patient involved in shared decision making for management of medical issues. History and medications reviewed. Epic updated as needed Refills and/or prescriptions taken care of and meds adjusted as indicated after reviewed history, exam and labs. Health Maintenance reviewed. Updated record and/or ordered t ests as recorded. Encouraged on efforts at healthy diet and regular exercise a nd adequate sleep. The majority of the visit was spent counseling and/or coordi nating care for the patient. Rfqo-yi-[id number] time was at least 40 minutes. Alicia Blount MD PROGRESS HNO ID: [id number] Normal 01-08-2020 [facility] Author: Alicia Blount [place] ([id number]) Service: ? Author Type: Physician Type: Progress Notes Filed: 01/08/2020 8:53 AM Note Text: Below noted cnov on 2020-01-08 CNOV Office Visit (INTMWS) Normal 01-07-20 20 [place] [facility] ANA IVORY ([id number]) 1940 [facility] Date Time Provider Department ([id number]) 01/08/20 9:00 AM ALICIA BLOUNT INTMWS During your visit today, we recorded the following informati on about you: Temperature Pulse Respiration Blood pressure 96 degrees 70/minute 16/minute 110/78 Weight 58.5 kg Alicia Blount MD 01/19/2020 12:04 AM Signed This note was created using Embarklyriter. Subjective Ana Ivory is a 79 year old female. Transitional Care Management Progress Note The patients TCM visit was performed within the 7 days of taras hughes. Patient's Date of discharge: 01/03/20 Date of initial coordinator contact after discharge: 01/06/20 Discharge diagnosis: CVA Medication review completed Yes Alicia Blount MD Provider Documentation: In follow-up of hospitalization, Ana Ivory is a 79 year old female with the chief complaint of stroke. Review discharge summary. Patient was admitted for evaluation of right side d weakness and decreased sensation that had started the day prior to presenting in the emergency departmen t at [facility]. Also noticed decreased ability to control her arm, then noted trouble with standing and was in the shower.. Discharg e summary noted right upper extremity ataxia and right hemisensory deficit a nd unsteady gait. MRI was negative for acute infarct but did show a small lacunar infarct. CTA showed right ICA with 50-69% stenosis. MRA neck showed right internal carotid artery 50-69% stenosis. Echocardiogram was done. Still with weakness. Gets tingling right UE, LE and face Most of the time hand th at way. Mouth symptoms comes and goes. Seems like there were signs of this prior to day before hosp ital stay. Weakness is better--noted th at able to walk now with use of walker; not able to walk when first admitted to hospital. Control of right UE returned. Had thought was her neck at first and went to chiropractor. Has appointment with Dr. Finney 01/14. Neuro. Tolerating atorvastatin increased dose well. Still needs cough syrup for prn use. Noted sugar was high whole time in the hospital. Headaches noted but not as severe as when was in the hospita l. Was stressed out since no visitors allowed. Needing walker for balance. Needs to use in home unless has something to steady herself like in the kitchen. Prefers home PT/OT. Getting coordination back slowly. Able to write but handwriting not same. Weakness with holding carton of milk. Fasting sugars in AM 99 to 124. noted that had issues with balance before till took a few steps.. I have reviewed the patient? s last hospital course including diagnostic testing performed during this hospitalization, their discharge medic ations, and my assessment and plan with the patient and any family members present at today?s visit. TRANSITION CARE MANAGEMENT (TCM) INITIAL CONTACT Sort Manager Outreach Provider Action/FYI: Initial contact with patient post discharge, spoke to myrtle sumner Patient identified by name and . TRANSITION CARE MANAGEMENT INITIAL OUTREACH DOCUMENTATION: Date of Outreach: 01/06/2020 Outreach Attempt 1: Contact Made Date of Discharge 01/03/2020 Some recent data might be hidden SUMMARY: -Pt discharged from [facility] on 01/03/20. -Admitted for: CVA Do you have a hospital follow up appointment with your PCP? Appointment on 01/08/20 with pcp. Yes. Remind patient of appointment date, time, a nd location. If not within 14 calendar days of discharge - please reschedule accordingly. MEDICATIONS: Many patients have questions or concerns about their medications once they are home. Were you prescribed any new medications? If yes, what are those medications? Asa 81 mg daily Atorvastatin 20 mg daily Were you told to hold any medications? no Were any of your medications discontinued? No Do you have any questions about getting or taking your medic ations? No Your discharge instructions/After visit Summary (AVS) are important in guiding you through the recovery pro cess. Is there anything I might help you understand? No Do you have all the necessary equipment and supplies at home ? Yes Medical records from recent hospitalization: Placed for provider to review. Pt reports she does have a follow up appt with Dr. Pandya . 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 difficile diarrhea 10/18/2011 - Cataract 04/17/2013 [facility], Dr. Dada johnson Mild cataract in L eye- no need for cataract surgery at this time. Continue to follow up the cat aract. 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 At thi s time, we anticipate that the patient will be discharged home once c linically stable. Plan: - Discuss needs with patient. - Collaborate with Case management to facilitate DC process - Will continue to evaluate during the post op period. - Desat study 11/14/14: patient will need home oxygen (2 L with exertion only) - Discharge home today with [facility] care for assistance with chest tube to Heimlich. Return to [facility] on Sunday11/18/[address] removal . - Enlargement of lymph nodes 12/20/2006 - Esophagitis, unspecified - Hemorrhage of gastrointestinal tract, unspecified - Hyperreflexia 08/02/2011 - Hypertension - Hypoxia 11/14/2014 Desat study done 11/14/14: Home oxygen needed (2 L/min via n irene cannula with exertion and while sleeping). A face to face encounter was performed during this hospital admission regarding the need for o xygen. The patient verbalized understanding and consents to this therapy. - LVATS ODALIS Lobectomy 11/05/2014 74 year old never smoker who had a nodule identified on a screening scan in the past due to a family concern regarding asbes tosis. The nodule slowly grew from 1.0 to 1.5 cm in about 6yrs. 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 On 11/10/14 , Dr. Villagomez performed video assisted left upper lobectomy. Ramirez drain removed POD 4, air l eak in CT Plan: -Chest tube to heimlich valve. Monitor air leak and daily yields. Discharge home with heimlich -Pain management -Out of bed, c ough, deep breathe, acapella, frequent ambulation. -Carb controlled diet . - Migraines 11/11/2014 - Orthostatic hypotension vasovagal syncope - Osteoporosis, unspecified - Snoring - Tendonitis of ankle, right 05/03/2011 - Type II or unspecified type diabetes mellitus without ment ion of complication, not stated as uncontrolled 02/07/2010 - Urge urinary incontinence 12/16/2013 - Variants of migraine, not elsewhere classified, without me ntion of intractable migraine without mention of status migrainosus Current Outpatient Medications Medication Sig - aspirin, enteric coated (ASPIRIN, ENTE GINNY COATED) 81 mg EC tablet Take 81 mg by mouth once daily. - atorvastatin (LIPITOR) 20 mg tablet Take 1 tablet by mouth once daily. - LORazepam (ATIVAN) 1 mg tablet TAKE 1/2 TO 1 TABLET BY M OUTH EVERY DAY NEEDED FOR FOR ANXIETY - mirabegron (MYRBETRIQ) 50 mg Tb24 Take 1 tablet by mouth t wice daily. - insulin aspart U-100 (NOVOLOG FLEXPEN U-100 INSULIN) 100 u nit/mL (3 mL) Inject 8 Units subcutaneously twice daily with meals. Adjust as directed - gabapentin (NEURONTIN) 300 mg capsule Take 1 capsule by mouth twice daily for 180 days. Morning and bedtime - glimepiride (AMARYL) 2 mg tablet Take 1 tablet by mouth tw ice daily with meals. - sertraline (ZOLOFT) 50 mg tablet Take 1 tablet by mouth on ce daily. - PREMARIN vaginal cream APPLY 0.5 GRAMS VAGINAL LY BEFORE BED EVERY NIGHT FOR 14 DAYS THEN USE TWICE A WEEK FOR 3 MONTHS - Cephalexin 250 mg tab Take 1 tablet by mouth d aily at bedtime. (Dr Don) - oxybutynin ER (DITROPAN XL) 10 mg 24 hr tablet Take 1 tablet by mouth twice daily. 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 - esomeprazole (NEXIUM) 40 mg capsule Take 1 capsule by mo uth DAILY (6 AM). - insulin glargine (LANTUS SOLOSTAR U-100 INSULIN) 100 unit/ mL (3 mL) inpn Inject 24 Units subcutaneously daily at bedtime. - blood sugar diagnostic (EASY TOUCH ABHIJIT T STRIP) test strip Check blood sugars 2x per day and as needed Dx: E11.9 insulin: yes - vit C/E/Zn/coppr/lutein/zeaxan (PRESERVISION AREDS-2 ORAL) Take by mouth twice daily. - Cholecalciferol, Vitamin D3, 1,000 unit cap Take 2 capsu les by mouth once daily. - Insulin Troy, Disposable, (EASY CARROL CH) 31 gauge x 3/16 ndle Use 1 needle for each dose. 2x daily - SUMAtriptan (IMITREX) 50 mg tablet Take 1 tablet by mouth. at onset of headache. May take another tablet as needed one hour later. - COMPOUNDED PRESCRIPTION Custom orthotics (E08.40, Z7 9.4) 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, with long-term current use of insulin - blood sugar diagnostic (ON ETOUCH ULTRA TEST) test strip Test blood sugar(s) 2 times daily. Dx: Type 2 DM - Controlled E11.9 Insulin: Yes - Lancets (ONETOUCH ULTRASOFT LANCETS) lancets Test blood daigle gar(s) 2 times daily. Dx: Type 2 DM - Controlled E11.9 , Insulin: Yes - Blood-Glucose Meter (ONETOUCH ULTRA2) monitoring kit 1 Each as needed. One Touch Meter Kit Diagnosis: Type 2 DM - Controlled E11.9 - capsaicin (ZOSTRIX) 0.025 % cream Appl y 3 application to affected area three times daily. - Lancets (EASY TOUCH LANCETS) lancets 1 Each tw ice daily. DX: 250.00 insulin - multivitamins(DAILY MULTIVITAMIN TAB) Take one(1) tablet d aily. - codeine-guaiFENesin (VIRTUSSIN AC) 10-100 mg/5 mL sy rup Take 5 mL by mouth four times daily as needed for up to 7 days. No current facility-administered medications for this visit. Review of Systems Objective BP 110/78 Pulse 70 Temp (!) 35.6 ?C (96 ?F) (Temporal) Resp 16 Wt 58.5 kg (129 lb) SpO2 100% BMI 23.22 kg/m? Physical Exam Vitals signs reviewed. Constitutional: Appearance: She is well-developed and normal weight. HENT: Head: Normocephalic and atraumatic. Right Ear: External ear normal. Left Ear: External ear normal. Nose: Nose normal. Eyes: General: No visual field deficit or scleral icterus. Extraocular Movements: Extraocular movements intact. Conjunctiva/sclera: Conjunctivae normal. Pupils: Pupils are equal, round, and reactive to light. Neck: Thyroid: No thyromegaly. Cardiovascular: Rate and Rhythm: Normal rate and regular rhythm. Pulses: Normal pulses. Heart sounds: Normal heart sounds. No murmur. No friction ru b. No gallop. Pulmonary: Effort: Pulmonary effort is normal. Breath sounds: Normal breath sounds. Abdominal: General: There is no distension. Palpations: There is no mass. Tenderness: There is no abdominal tenderness. Musculoskeletal: Normal range of motion. General: No deformity. Lymphadenopathy: Cervical: No cervical adenopathy. Skin: General: Skin is warm and dry. Coloration: Skin is not jaundiced or pale. Findings: No rash. Neurological: Mental Status: She is alert and oriented to person, place, a nd time. Cranial Nerves: No cranial nerve deficit or facial asymmetry . Sensory: No sensory deficit. Motor: Weakness present. No atrophy. Coordination: Heel to Jones Test abnormal (Right side--needs to really concentrate to perform test and not able to do as quickly as on left). Gait: Gait abnormal (Not able to balance without walke r; walks well with use of wheeled walker). Psychiatric: Attention and Perception: Attention normal. Mood and Affect: Mood and affect normal. Speech: Speech normal. Behavior: Behavior normal. Thought Content: Thought content normal. Cognition and Memory: Cognition normal. Judgment: Judgment normal. Assessment and Plan Encounter Diagnosis ICD-10-CM 1. Stroke determined by clinical assessment ([facility]) I63.9 Left hemispheric with right sided weakne ss though MRI did not show more than a small lacunar infarct on left 2. Personal history of stroke with current residual effects I69.30 3. 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 Right upper and lower extremity and right face tingling R 20.2 Intermittent in face/mouth. Hand most of the time 5. Chronic cough R05 codeine-guaiFENesin (VIRTUSSIN AC ) 10-100 mg/5 mL syrup 2014 PFT showed moderate obstruction after surgery 6. Type 2 diabetes mellitus without complication, with long-term current use of insulin (HCC) E11.9 Z79.4 Discussed hospital stay and evaluation and treatment. Follow up with neurology. Vascular follow up as discus sed for carotid artery stenosis. Continue present meds. Tolerating statin dose. Home PT/OT/ST. Further evaluation and treatment as indicated . Issues with cough noted. Cough med prn helps. Noted prior PF Ts. No acute issues with signs of COPD exacerbation or need for inhaler s noted. Consider PFTs down the road. Hold off for now given COVID 19 precauti ons. Blood sugars controlled. Continue present management. Above issues addressed with patient. Patient involved in shared decision making for managem ent of medical issues. History and medications reviewed. Epic updated as needed Refills and/or prescriptions taken care of and meds adjusted as indicated after reviewed history, exam and labs. Health Maintenance reviewed. Updated record and/ or ordered tests as recorded. Encouraged on efforts at healthy diet an d regular exercise and adequate sleep. The majority of the visit wa s spent counseling and/or coordinating care for the patient. Pduv-gp-fxxc time was at least 40 minutes. Alicia Blount MD Referring Provider: ALICIA BLOUNT [[id number]] Allergies As of Date: 01/08/2020 Noted Allergy Reaction ADHESIVE TAPE (ROSINS) 08/31/2008 4 - Hives Comments: Rash around bandaid never been tested for latex al lergy ASPIRIN 04/16/2018 15 - Contraindication-Medical [place]* Comments: GI bleed BONIVA (IBANDRONATE) 12/04/2008 8 - GI Upset Comments: Esophageal burning CARAFATE (SUCRALFATE) 04/24/2012 14 - Other: See Comments Comments: feels poorly CIPROFLOXACIN 12/01/2013 14 - Other: See Comments Comments: photosensitivity, dermatitis CODEINE 08/24/2005 8 - GI Upset IBUPROFEN 03/22/2006 8 - GI Upset IODINE 08/25/2008 11 - Vomiting LANSOPRAZOLE 11/01/2011 6 - Diarrhea METFORMIN 05/10/2011 6 - Diarrhea NEOSPORIN ([id number]*08/31/2008 2 - Rash Comments: blisters PROTONIX (PANTOPRAZOLE) 01/13/2010 6 - Diarrhea RELAFEN (NABUMETONE) 03/22/2006 8 - GI Upset 11 - Vomiting ACTOS (PIOGLITAZONE HCL) 12/03/2016 7 - Swelling Date Reviewed: 01/08/2020 Reviewed by: Isabela Mendoza Revenue Field Auditor - Fully Assessed Reason for Visit: Transition Of Care [[id number]] Primary Visit Diagnosis:Stroke determine d by clinical assessment ([facility]) [I63.9] Comment:Left hemispheric with right sided weakness though MRI did not show more than a small lacunar infarct on left Other Visit Diagnoses:Personal history of stroke with curren t residual effects [I69.30] Stenosis of right carotid artery [I65.21] Right upper and lower extremity and right face tingling [R20.2] Comment:Intermittent in face/mouth. Hand most of the time Chronic cough [R05] Comment:2014 PFT showed moderate obstruction after surgery Type 2 diabetes mellitus without complication, with long-term current use of insulin ([facility]) [E11.9, Z79.4] Order(s):atorvastatin (LIPITOR) 20 mg tabletTake 1 tablet by mouth once daily.Disp: 90 tabletRfl: 3 codeine-guaiFENesin (VIRTUSSIN AC) 10-100 mg/5 mL syrupTake 5 mL by mouth four times daily as needed for up to 7 days.Disp: 118 mLRfl: 0 Prescriptions as of 01/08/2020 Sig: ASPIRIN 81 MG TABLET,DELAYED * Take 81 mg by mouth once paola * ATORVASTATIN 20 MG TABLET Take 1 tablet by mouth once d* LORAZEPAM 1 MG TABLET TAKE 1/2 TO 1 TABLET BY MOUTH* MIRABEGRON ER 50 MG TABLET,EX* Take 1 tablet by mouth twice * INSULIN ASPART (U-100) 100 UN* Inject 8 Units subcutaneously * GABAPENTIN 300 MG CAPSULE Take 1 capsule by mouth twice* GLIMEPIRIDE 2 MG TABLET Take 1 tablet by mouth twice * SERTRALINE 50 MG TABLET Take 1 tablet by mouth once d* PREMARIN 0.625 MG/GRAM VAGINA* APPLY 0.5 GRAMS VAGINALLY BEF * CEPHALEXIN 250 MG TABLET Take 1 tablet by mouth daily * OXYBUTYNIN CHLORIDE ER 10 MG * Take 1 tablet by mouth twice * MISCELLANEOUS MEDICAL SUPPLY * Custom Orthotics (E08.40, Z* METOPROLOL SUCCINATE ER 200 M* Take 1 tablet by mouth once d * ESOMEPRAZOLE MAGNESIUM 40 MG * Take 1 capsule by mouth DAILY * INSULIN GLARGINE (U-100) 100 * Inject 24 Units subcutaneousl * BLOOD SUGAR DIAGNOSTIC STRIPS Check blood sugars 2x per day* PRESERVISION AREDS-2 ORAL Take by mouth twice daily. CHOLECALCIFEROL (VITAMIN D3) * Take 2 capsules by mouth once * PEN NEEDLE, DIABETIC 31 GAUGE* Use 1 needle for each dose. 2 * SUMATRIPTAN 50 MG TABLET Take 1 tablet by mouth. at on* COMPOUNDED PRESCRIPTION Custom orthotics (E08.40, Z7* BLOOD SUGAR DIAGNOSTIC STRIPS Test blood sugar(s) 2 times d* LANCETS Test blood sugar(s) 2 times * BLOOD-GLUCOSE METER KIT 1 Each as needed. One Touch M* CAPSAICIN 0.025 % TOPICAL CRE* Apply 3 application to affect * LANCETS 1 Each twice daily. DX: 250.0* DAILY MULTIVITAMIN TABLET Take one(1) tablet daily. CODEINE 10 MG-GUAIFENESIN 100* Take 5 mL by mouth four times * Problem List As Of Date 01/08/2020 Noted Resolved SPRAIN ROTATOR CUFF [S43.429A] 01/10/2003 03/03/2003 Complete rupture of rotator cuff [M75.120] 03/03/20032016 OSTEOPOROSIS NOS [M81.0] 02/19/2006 ALLERGIC RHINITIS NOS [J30.9] 03/06/2006 GENERAL OSTEOARTHROSIS [M15.9] 03/06/2006 Restless legs syndrome (RLS) [G25.81] 06/19/2006 LUMBAR DISC DISPLACEMENT [M51.26] More... Enlargement of lymph nodes [R59.9] 12/20/2006 08/15/2016 INSOMNIA NOS [G47.00] 04/30/2007 LUNG NODULE [R22.2] 09/05/2007 04/30/2015 STRICKLAND'S ESOPHAGUS [K22.70] Acute gastritis without mention of hemorrhage [*10/31/2007 0 09/15/2016 Pure hypercholesterolemia [E78.00] 12/14/2009 11/11/2014 Diabetes 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 condition w*02/07/2010 More... Anxiety [F41.9] 05/03/2011 More... Tendonitis of ankle, right [M77.51] 05/03/2011 08/15/2016 C. difficile diarrhea [A04.72] 10/18/2011 09/15/2016 Esophagitis, unspecified [K20.9] 11/23/2011 IBS (irritable bowel syndrome) [K58.9] 02/01/2012 More... Cataract [H26.9] 04/17/2013 09/15/2016 More... HTN (hypertension) [I10] 08/04/2013 More... Urge urinary incontinence [N39.41] 12/16/2013 Esophageal reflux [K21.9] 10/08/2014 10/08/2014 More... DVT prophylaxis [Z29.9] 11/11/2014 08/15/2016 More... DISPOSITION AND FOLLOW-UP [V999.01] 11/11/2014 08/15/2016 More... Migraines [G43.909] 11/11/2014 More... Hypoxia [R09.02] 11/14/2014 09/15/2016 More... 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 Mouth dryness [R68.2] 11/06/2016 Hyperlipidemia [E78.5] 11/06/2016 Functional dyspepsia [K30] 08/20/2017 More... 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 Gastroesophageal reflux disease with esophagiti*08/20/2017 More... 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]11/22/2018 Prescriptions ordered this encounter Disp Refills Start End ATORVASTATIN 20 MG TABLET 90 t* 3 01/08/2020 Cmt: Intentional dose increase Route: ORAL Sig: Take 1 tablet by mouth once daily. CODEINE 10 MG-GUAIFENESIN 100 MG/5 M* 118 * 0 01/08/202011/2019 Route: ORAL Sig: Take 5 mL by mouth four times daily as needed for up to 7 days. Medications Discontinued During This Encounter atorvastatin (LIPITOR) 10 mg tablet 90 t* 3 10/24/2019 020 Route: ORAL Sig: Take 1 tablet by mouth once daily. Patient taking differently: Take 20 mg by mouth once daily. Disc: Reason for discontinue is not on file. codeine-guaiFENesin (VIRTUSSIN AC) 1* 118 * 0 10/24/201901/07 Route: ORAL Sig: Take 5 mL by mouth four times daily as needed for up to 7 days. Disc: Reason for discontinue is not on file. Follow-up and Disposition History Recorded Encounter Status:Closed by ALICIA BLOUNT MD on 01/19/20 cnco on 2020-01-08 CNCO Letter Text Normal 01-08-2020 [facility] ([id number]) progress on 2019-12 PROGRESS HNO ID: [id number] Normal 01-06-2020 [facility] Author: Alicia Blount [place] ([id number]) Service: ? Author Type: Physician Type: Progress Notes Filed: 01/08/2020 8:53 AM Note Text: TRANSITION CARE MANAGEMENT (TCM) INITIAL CONTACT Sort Manager Outreach Provider Action/FYI: Initial contact with patient post discharge, spoke to myrtle sumner Patient identified by name and . TRANSITION CARE MANAGEMENT INITIAL OUTREACH DOCUMENTATION: Date of Outreach: 01/06/2020 Outreach Attempt 1: Contact Made Date of Discharge 01/03/2020 Some recent data might be hidden SUMMARY: -Pt discharged from [facility] on 01/03/20. -Admitted for: CVA Do you have a hospital follow up appointment with your PCP? Appointment on 01/08/20 with pcp. Yes. Remind patient of appointment date, time, and location. If not within 14 calendar days of discharge - please reschedule acc ordingly. MEDICATIONS: Many patients have questions or concerns about their medicat ions once they are home. Were you prescribed any new medications? If yes, what are those medications? Asa 81 mg daily Atorvastatin 20 mg daily Were you told to hold any medications? no Were any of your medications discontinued? No Do you have any questions about getting or taking your medic ations? No Your discharge instructions/After visit Summary (AVS) are im portant in guiding you through the recovery process. Is there anything I might help you understand? No Do you have all the necessary equipment and supplies at home ? Yes Medical records from recent hospitalization: Placed for provider to review. Pt reports she does have a follow up appt with Dr. Pandya . obsolete on 2019-12 OBSOLETE Refill (INTMWS) Normal 01-06-2020 [facility] ANA IVORY ([id number]) 1940 [facility] Date Time Provider Department ([id number]) 01/06/20 ALICIA BLOUNT INTMWS During your visit today, we recorded the following informati on about you: Mitzi Crystalelder [facility] 01/06/2020 9:01 AM Signed Patient has been identified by name and date of : Yes Pending Prescriptions Disp Refills LORAZEPAM 1 MG TABLET 30 tablet 2 Sig: TAKE 1/2 TO 1 TABLET BY MOUTH EVERY DAY NEEDED FOR F OR ANXIETY BULL Class: C-IV ABRAM: No RX INSTRUCTIONS: Patient aware RX will be sent to pharmacy. No need to notify patient. Mitzi Crystalelder [facility] Juana Muro LPN 01/06/2020 11:36 AM Signed Patient has been identified by name and date of : Yes Patient phones for refill(s): Pending Prescriptions Disp Refills LORAZEPAM 1 MG TABLET 30 tablet 2 Sig: TAKE 1/2 TO 1 TABLET BY MOUTH EVERY DAY NEEDED FOR F OR ANXIETY BULL Class: C-IV ABRAM: No Date of last office visit in primary care: 10/24/2019 3 month follow-up scheduled: 01/27/2020 Juana Blount MD 01/06/2020 5:19 PM Signed I am assuming patient requested this RX and needs it filled now Was recently in the hospital. The following approved medic ation requests have been transmitted electronically. Signed Prescriptions Disp Refills LORazepam (ATIVAN) 1 mg tablet 30 tablet 2 Sig: TAKE 1/2 TO 1 TABLET BY MOUTH EVERY DAY NEEDED FOR F OR ANXIETY BULL Class: C-IV ABRAM: No Authorizing Provider: ALICIA BLOUNT MD Allergies As of Date: 01/06/2020 Noted Allergy Reaction ADHESIVE TAPE (ROSINS) 08/31/2008 4 - Hives Comments: Rash around bandaid never been tested for latex al lergy ASPIRIN 04/16/2018 15 - Contraindication-Medical [place]* Comments: GI bleed BONIVA (IBANDRONATE) 12/04/2008 8 - GI Upset Comments: Esophageal burning CARAFATE (SUCRALFATE) 04/24/2012 14 - Other: See Comments Comments: feels poorly CIPROFLOXACIN 12/01/2013 14 - Other: See Comments Comments: photosensitivity, dermatitis CODEINE 08/24/2005 8 - GI Upset IBUPROFEN 03/22/2006 8 - GI Upset IODINE 08/25/2008 11 - Vomiting LANSOPRAZOLE 11/01/2011 6 - Diarrhea METFORMIN 05/10/2011 6 - Diarrhea NEOSPORIN ([id number]*08/31/2008 2 - Rash Comments: blisters PROTONIX (PANTOPRAZOLE) 01/13/2010 6 - Diarrhea RELAFEN (NABUMETONE) 03/22/2006 8 - GI Upset 11 - Vomiting ACTOS (PIOGLITAZONE HCL) 12/03/2016 7 - Swelling Date Reviewed: 10/24/2019 Reviewed by: Danni Taylor LPN - Fully Assessed Reason for Visit: Refill Request [94] Visit Diagnosis:Anxiety [F41.9] Order(s):LORazepam (ATIVAN) 1 mg tabletT RAJESH 1/2 TO 1 TABLET BY MOUTH EVERY DAY NEEDED FOR FOR ANXIETYDisp: 30 tabletRfl: 2 Prescriptions as of 01/06/2020 Sig: LORAZEPAM 1 MG TABLET TAKE 1/2 TO 1 TABLET BY MOUTH* MIRABEGRON ER 50 MG TABLET,EX* Take 1 tablet by mouth twice * CODEINE 10 MG-GUAIFENESIN 100* Take 5 mL by mouth four times * ATORVASTATIN 10 MG TABLET Take 1 tablet by mouth once d* INSULIN ASPART (U-100) 100 UN* Inject 8 Units subcutaneously * GABAPENTIN 300 MG CAPSULE Take 1 capsule by mouth twice* GLIMEPIRIDE 2 MG TABLET Take 1 tablet by mouth twice * SERTRALINE 50 MG TABLET Take 1 tablet by mouth once d* PREMARIN 0.625 MG/GRAM VAGINA* APPLY 0.5 GRAMS VAGINALLY BEF * CEPHALEXIN 250 MG TABLET Take 1 tablet by mouth daily * OXYBUTYNIN CHLORIDE ER 10 MG * Take 1 tablet by mouth twice * MISCELLANEOUS MEDICAL SUPPLY * Custom Orthotics (E08.40, Z* METOPROLOL SUCCINATE ER 200 M* Take 1 tablet by mouth once d * ESOMEPRAZOLE MAGNESIUM 40 MG * Take 1 capsule by mouth DAILY * INSULIN GLARGINE (U-100) 100 * Inject 24 Units subcutaneousl * BLOOD SUGAR DIAGNOSTIC STRIPS Check blood sugars 2x per day* PRESERVISION AREDS-2 ORAL Take by mouth twice daily. CHOLECALCIFEROL (VITAMIN D3) * Take 2 capsules by mouth once * PEN NEEDLE, DIABETIC 31 GAUGE* Use 1 needle for each dose. 2 * SUMATRIPTAN 50 MG TABLET Take 1 tablet by mouth. at on* COMPOUNDED PRESCRIPTION Custom orthotics (E08.40, Z7* BLOOD SUGAR DIAGNOSTIC STRIPS Test blood sugar(s) 2 times d* LANCETS Test blood sugar(s) 2 times * BLOOD-GLUCOSE METER KIT 1 Each as needed. One Touch M* CAPSAICIN 0.025 % TOPICAL CRE* Apply 3 application to affect * LANCETS 1 Each twice daily. DX: 250.0* DAILY MULTIVITAMIN TABLET Take one(1) tablet daily. Problem List As Of Date 01/06/2020 Noted Resolved SPRAIN ROTATOR CUFF [S43.429A] 01/10/2003 03/03/2003 Complete rupture of rotator cuff [M75.120] 03/03/20032016 OSTEOPOROSIS NOS [M81.0] 02/19/2006 ALLERGIC RHINITIS NOS [J30.9] 03/06/2006 GENERAL OSTEOARTHROSIS [M15.9] 03/06/2006 Restless legs syndrome (RLS) [G25.81] 06/19/2006 LUMBAR DISC DISPLACEMENT [M51.26] More... Enlargement of lymph nodes [R59.9] 12/20/2006 08/15/2016 INSOMNIA NOS [G47.00] 04/30/2007 LUNG NODULE [R22.2] 09/05/2007 04/30/2015 STRICKLAND'S ESOPHAGUS [K22.70] Acute gastritis without mention of hemorrhage [*10/31/2007 0 09/15/2016 Pure hypercholesterolemia [E78.00] 12/14/2009 11/11/2014 Diabetes 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 condition w*02/07/2010 More... Anxiety [F41.9] 05/03/2011 More... Tendonitis of ankle, right [M77.51] 05/03/2011 08/15/2016 C. difficile diarrhea [A04.72] 10/18/2011 09/15/2016 Esophagitis, unspecified [K20.9] 11/23/2011 IBS (irritable bowel syndrome) [K58.9] 02/01/2012 More... Cataract [H26.9] 04/17/2013 09/15/2016 More... HTN (hypertension) [I10] 08/04/2013 More... Urge urinary incontinence [N39.41] 12/16/2013 Esophageal reflux [K21.9] 10/08/2014 10/08/2014 More... DVT prophylaxis [Z29.9] 11/11/2014 08/15/2016 More... DISPOSITION AND FOLLOW-UP [V999.01] 11/11/2014 08/15/2016 More... Migraines [G43.909] 11/11/2014 More... Hypoxia [R09.02] 11/14/2014 09/15/2016 More... 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 Mouth dryness [R68.2] 11/06/2016 Hyperlipidemia [E78.5] 11/06/2016 Functional dyspepsia [K30] 08/20/2017 More... 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 Gastroesophageal reflux disease with esophagiti*08/20/2017 More... 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]11/22/2018 Prescriptions ordered this encounter Disp Refills Start End LORAZEPAM 1 MG TABLET 30 t* 2 01/06/2020 04/06/2020 Sig: TAKE 1/2 TO 1 TABLET BY MOUTH EVERY DAY NEEDED FOR F OR ANXIETY Medications Discontinued During This Encounter LORazepam (ATIVAN) 1 mg tablet 30 t* 2 09/11/2019 01/06/2020 Sig: TAKE 1/2 TO 1 TABLET BY MOUTH EVERY DAY NEEDED FOR F OR ANXIETY Disc: Reason for discontinue is not on file. Encounter Status:Closed by CINTIA MACIAS LPN on 01/06/20 cnptoutreach on CNPTOUTREACH Patient Outreach (INTMWS) Normal 0 01-06-2020 [place] [facility] ANA IVORY ([id number]) 1940 [facility] Date Time Provider Department ([id number]) 01/06/20 ALICIA BLOUNT INTMWS During your visit today, we recorded the following informati on about you: Alicia Blount MD 01/08/2020 8:53 AM Signed TRANSITION CARE MANAGEMENT (TCM) INITIAL CONTACT Sort Manager Outreach Provider Action/FYI: Initial contact with patient post discharge, spoke to myrtle sumner Patient identified by name and . TRANSITION CARE MANAGEMENT INITIAL OUTREACH DOCUMENTATION: Date of Outreach: 01/06/2020 Outreach Attempt 1: Contact Made Date of Discharge 01/03/2020 Some recent data might be hidden SUMMARY: -Pt discharged from [facility] on 01/03/20. -Admitted for: CVA Do you have a hospital follow up appointment with your PCP? Appointment on 01/08/20 with pcp. Yes. Remind patient of appointment date, time, a nd location. If not within 14 calendar days of discharge - please reschedule accordingly. MEDICATIONS: Many patients have questions or concerns about their medications once they are home. Were you prescribed any new medications? If yes, what are those medications? Asa 81 mg daily Atorvastatin 20 mg daily Were you told to hold any medications? no Were any of your medications discontinued? No Do you have any questions about getting or taking your medic ations? No Your discharge instructions/After visit Summary (AVS) are important in guiding you through the recovery pro cess. Is there anything I might help you understand? No Do you have all the necessary equipment and supplies at home ? Yes Medical records from recent hospitalization: Placed for provider to review. Pt reports she does have a follow up appt with Dr. Pandya . Alicia Blount MD 01/08/2020 8:53 AM Signed Below noted Allergies As of Date: 01/06/2020 Noted Allergy Reaction ADHESIVE TAPE (ROSINS) 08/31/2008 4 - Hives Comments: Rash around bandaid never been tested for latex al lergy ASPIRIN 04/16/2018 15 - Contraindication-Medical [place]* Comments: GI bleed BONIVA (IBANDRONATE) 12/04/2008 8 - GI Upset Comments: Esophageal burning CARAFATE (SUCRALFATE) 04/24/2012 14 - Other: See Comments Comments: feels poorly CIPROFLOXACIN 12/01/2013 14 - Other: See Comments Comments: photosensitivity, dermatitis CODEINE 08/24/2005 8 - GI Upset IBUPROFEN 03/22/2006 8 - GI Upset IODINE 08/25/2008 11 - Vomiting LANSOPRAZOLE 11/01/2011 6 - Diarrhea METFORMIN 05/10/2011 6 - Diarrhea NEOSPORIN ([id number]-EL*08/31/2008 2 - Rash Comments: blisters PROTONIX (PANTOPRAZOLE) 01/13/2010 6 - Diarrhea RELAFEN (NABUMETONE) 03/22/2006 8 - GI Upset 11 - Vomiting ACTOS (PIOGLITAZONE HCL) 12/03/2016 7 - Swelling Date Reviewed: 10/24/2019 Reviewed by: Danni Taylor LPN - Fully Assessed Reason for Visit: Transition Of Care [4074] Prescriptions as of 01/06/2020 Sig: LORAZEPAM 1 MG TABLET TAKE 1/2 TO 1 TABLET BY MOUTH* MIRABEGRON ER 50 MG TABLET,EX* Take 1 tablet by mouth twice * ATORVASTATIN 10 MG TABLET Take 1 tablet by mouth once d* INSULIN ASPART (U-100) 100 UN* Inject 8 Units subcutaneously * GABAPENTIN 300 MG CAPSULE Take 1 capsule by mouth twice* GLIMEPIRIDE 2 MG TABLET Take 1 tablet by mouth twice * SERTRALINE 50 MG TABLET Take 1 tablet by mouth once d* PREMARIN 0.625 MG/GRAM VAGINA* APPLY 0.5 GRAMS VAGINALLY BEF * CEPHALEXIN 250 MG TABLET Take 1 tablet by mouth daily * OXYBUTYNIN CHLORIDE ER 10 MG * Take 1 tablet by mouth twice * MISCELLANEOUS MEDICAL SUPPLY * Custom Orthotics (E08.40, Z* METOPROLOL SUCCINATE ER 200 M* Take 1 tablet by mouth once d * ESOMEPRAZOLE MAGNESIUM 40 MG * Take 1 capsule by mouth DAILY * INSULIN GLARGINE (U-100) 100 * Inject 24 Units subcutaneousl * BLOOD SUGAR DIAGNOSTIC STRIPS Check blood sugars 2x per day* PRESERVISION AREDS-2 ORAL Take by mouth twice daily. CHOLECALCIFEROL (VITAMIN D3) * Take 2 capsules by mouth once * PEN NEEDLE, DIABETIC 31 GAUGE* Use 1 needle for each dose. 2 * SUMATRIPTAN 50 MG TABLET Take 1 tablet by mouth. at on* COMPOUNDED PRESCRIPTION Custom orthotics (E08.40, Z7* BLOOD SUGAR DIAGNOSTIC STRIPS Test blood sugar(s) 2 times d* LANCETS Test blood sugar(s) 2 times * BLOOD-GLUCOSE METER KIT 1 Each as needed. One Touch M* CAPSAICIN 0.025 % TOPICAL CRE* Apply 3 application to affect * LANCETS 1 Each twice daily. DX: 250.0* DAILY MULTIVITAMIN TABLET Take one(1) tablet daily. Problem List As Of Date 01/06/2020 Noted Resolved SPRAIN ROTATOR CUFF [S43.429A] 01/10/2003 03/03/2003 Complete rupture of rotator cuff [M75.120] 03/03/20032016 OSTEOPOROSIS NOS [M81.0] 02/19/2006 ALLERGIC RHINITIS NOS [J30.9] 03/06/2006 GENERAL OSTEOARTHROSIS [M15.9] 03/06/2006 Restless legs syndrome (RLS) [G25.81] 06/19/2006 LUMBAR DISC DISPLACEMENT [M51.26] More... Enlargement of lymph nodes [R59.9] 12/20/2006 08/15/2016 INSOMNIA NOS [G47.00] 04/30/2007 LUNG NODULE [R22.2] 09/05/2007 04/30/2015 STRICKLAND'S ESOPHAGUS [K22.70] Acute gastritis without mention of hemorrhage [*10/31/2007 0 09/15/2016 Pure hypercholesterolemia [E78.00] 12/14/2009 11/11/2014 Diabetes 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 condition w*02/07/2010 More... Anxiety [F41.9] 05/03/2011 More... Tendonitis of ankle, right [M77.51] 05/03/2011 08/15/2016 C. difficile diarrhea [A04.72] 10/18/2011 09/15/2016 Esophagitis,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 Normal 10-20-2019 [facility] ([id number]) Erythrocyte distribution 13.2 11.5-15.0 % Normal 10-19 [facility] width (RBC) [Ratio] [place] (54233) Hematocrit (Bld) [Volume 38.3 36.0-46.0 % Normal 10-19 [facility] fraction] [place] (43240) Hemoglobin (Bld) 13.0 11.5-15.5 g/dL Normal 10-20-2019 [facility] [Mass/Vol] [place] (57086) MCH (RBC) [Entitic mass] 30.4 26.0-34.0 pG Normal 10-19 [facility] (34238) MCHC (RBC) [Mass/Vol] 33.9 30.5-36.0 g/dL Normal 10-20-19 20 [facility] (73828) MCV (RBC) [Entitic vol] 89.7 80.0-100.0 fL Normal 10-19 [facility] (32339) Platelet mean volume 9.4 9.0-12.7 fL Normal 0 [facility] (Bld) [Entitic vol] [place] (91329) Platelets (Bld) [#/Vol] 237 150-400 k/uL Normal 2019 [facility] (77066) RBC (Bld) [#/Vol] 4.27 3.90-5.20 m/uL Normal 10-20-2019 [facility] (38633) WBC (Bld) [#/Vol] 9.60 3.70-11.00 k/uL Normal 10-20-2019 [facility] (63019) albumin/creat ratio on 2019-10-20 Albumin Urine Random 1026.8 mg/L Normal 0 [facility] (96223) Comment: Performed By: #### UACR #### [facility], [place] [phone] Albumin/Creat Ratio 668 <30 mg/g High 10-20-2019 [facility] (00018) Comment: Result Comment: Adult Male a nd Female Nephrotic Criteria: <30 mg/g is considered cameron l to mildly increased 30-300 mg/g is considered mo derately increased >300 mg/g is considered david rely increased KDIGO. (2013). KDIGO 2012 Cl inical Practice Guideline for the Evaluation and Management of Chronic Kidney Disease. Official Journal of the International Society of Nephrology, 3(1), 1-150. Performed By: #### UACR #### [facility], [place] [phone] Creatinine,Urine,Ran 153.7 20-300 mg/dL Normal 0 [facility] (81055) Comment: Performed By: #### UACR #### [facility] [place], [place] [phone] obsolete on 2019-09 OBSOLETE Refill (INTMWS) Normal 09-23-2019 [facility] ANA IVORY ([id number]) 1940 [facility] Date Time Provider Department ([id number]) 09/23/19 ALICIA BLOUNT INTMWS During your visit today, we recorded the following informati on about you: Florence Ribeiro Pss 09/23/2019 8:39 AM Signed Patient has been identified by name and date of : Yes Pending Prescriptions Disp Refills GABAPENTIN 300 MG CAPSULE 180 capsule 1 Sig: Take 1 capsule by mouth twice daily for 180 days. Morni ng and bedtime ABRAM: No RX INSTRUCTIONS: Patient aware RX will be sent to pharmacy. No need to notify patient. Florence Ribeiro Pss Clarence Berry, MASOUD.BUSINESS ANALYSIS PROFESSIONAL 09/23/2019 10:04 AM Signed rx sent Allergies As of Date: 09/23/2019 Noted Allergy Reaction ADHESIVE TAPE (ROSINS) 08/31/2008 4 - Hives Comments: Rash around bandaid never been tested for latex al lergy ASPIRIN 04/16/2018 15 - Contraindication-Medical Da[place]* Comments: GI bleed BONIVA (IBANDRONATE) 12/04/2008 8 - GI Upset Comments: Esophageal burning CARAFATE (SUCRALFATE) 04/24/2012 14 - Other: See Comments Comments: feels poorly CIPROFLOXACIN 12/01/2013 14 - Other: See Comments Comments: photosensitivity, dermatitis CODEINE 08/24/2005 8 - GI Upset IBUPROFEN 03/22/2006 8 - GI Upset IODINE 08/25/2008 11 - Vomiting LANSOPRAZOLE 11/01/2011 6 - Diarrhea METFORMIN 05/10/2011 6 - Diarrhea NEOSPORIN ([id number]*08/31/2008 2 - Rash Comments: blisters PROTONIX (PANTOPRAZOLE) 01/13/2010 6 - Diarrhea RELAFEN (NABUMETONE) 03/22/2006 8 - GI Upset 11 - Vomiting ACTOS (PIOGLITAZONE HCL) 12/03/2016 7 - Swelling Date Reviewed: 09/15/2019 Reviewed by: Isabella (Rn) MANNY Kimble - Fully Assessed Reason for Visit: Refill Request [94] Visit Diagnosis: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 Morning and bedtimeDisp: 180 capsuleRfl: 1 Prescriptions as of 09/23/2019 Sig: GABAPENTIN 300 MG CAPSULE Take 1 capsule by mouth twice* GLIMEPIRIDE 2 MG TABLET Take 1 tablet by mouth twice * SERTRALINE 50 MG TABLET Take 1 tablet by mouth once d* LORAZEPAM 1 MG TABLET TAKE 1/2 TO 1 TABLET BY MOUTH* PREMARIN 0.625 MG/GRAM VAGINA* APPLY 0.5 GRAMS VAGINALLY BEF * CEPHALEXIN 250 MG TABLET Take 1 tablet by mouth daily * OXYBUTYNIN CHLORIDE ER 10 MG * Take 1 tablet by mouth twice * MISCELLANEOUS MEDICAL SUPPLY * Custom Orthotics (E08.40, Z* METOPROLOL SUCCINATE ER 200 M* Take 1 tablet by mouth once d * ESOMEPRAZOLE MAGNESIUM 40 MG * Take 1 capsule by mouth DAILY * INSULIN GLARGINE (U-100) 100 * Inject 24 Units subcutaneousl * CODEINE 10 MG-GUAIFENESIN 100* Take 5 mL by mouth three time * BLOOD SUGAR DIAGNOSTIC STRIPS Check blood sugars 2x per day* PRESERVISION AREDS-2 ORAL Take by mouth twice daily. CHOLECALCIFEROL (VITAMIN D3) * Take 2 capsules by mouth once * PEN NEEDLE, DIABETIC 31 GAUGE* Use 1 needle for each dose. 2 * INSULIN ASPART (U-100) 100 UN* Inject 8 Units subcutaneously * ATORVASTATIN 10 MG TABLET Take 1 tablet by mouth once d* SUMATRIPTAN 50 MG TABLET Take 1 tablet by mouth. at on* COMPOUNDED PRESCRIPTION Custom orthotics (E08.40, Z7* BLOOD SUGAR DIAGNOSTIC STRIPS Test blood sugar(s) 2 times d* LANCETS Test blood sugar(s) 2 times * BLOOD-GLUCOSE METER KIT 1 Each as needed. One Touch M* CAPSAICIN 0.025 % TOPICAL CRE* Apply 3 application to affect * LANCETS 1 Each twice daily. DX: 250.0* DAILY MULTIVITAMIN TABLET Take one(1) tablet daily. Problem List As Of Date 09/23/2019 Noted Resolved SPRAIN ROTATOR CUFF [S43.429A] 01/10/2003 03/03/2003 Complete rupture of rotator cuff [M75.120] 03/03/20032016 OSTEOPOROSIS NOS [M81.0] 02/19/2006 ALLERGIC RHINITIS NOS [J30.9] 03/06/2006 GENERAL OSTEOARTHROSIS [M15.9] 03/06/2006 Restless legs syndrome (RLS) [G25.81] 06/19/2006 LUMBAR DISC DISPLACEMENT [M51.26] More... Enlargement of lymph nodes [R59.9] 12/20/2006 08/15/2016 INSOMNIA NOS [G47.00] 04/30/2007 LUNG NODULE [R22.2] 09/05/2007 04/30/2015 STRICKLAND'S ESOPHAGUS [K22.70] Acute gastritis without mention of hemorrhage [*10/31/2007 0 09/15/2016 Pure hypercholesterolemia [E78.00] 12/14/2009 11/11/2014 Diabetes 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 condition w*02/07/2010 More... Anxiety [F41.9] 05/03/2011 More... Tendonitis of ankle, right [M77.51] 05/03/2011 08/15/2016 C. difficile diarrhea [A04.72] 10/18/2011 09/15/2016 Esophagitis, unspecified [K20.9] 11/23/2011 IBS (irritable bowel syndrome) [K58.9] 02/01/2012 More... Cataract [H26.9] 04/17/2013 09/15/2016 More... HTN (hypertension) [I10] 08/04/2013 More... Urge urinary incontinence [N39.41] 12/16/2013 Esophageal reflux [K21.9] 10/08/2014 10/08/2014 More... DVT prophylaxis [Z29.9] 11/11/2014 08/15/2016 More... DISPOSITION AND FOLLOW-UP [V999.01] 11/11/2014 08/15/2016 More... Migraines [G43.909] 11/11/2014 More... Hypoxia [R09.02] 11/14/2014 09/15/2016 More... 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 Mouth dryness [R68.2] 11/06/2016 Hyperlipidemia [E78.5] 11/06/2016 Functional dyspepsia [K30] 08/20/2017 More... 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 Gastroesophageal reflux disease with esophagiti*08/20/2017 More... 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]11/22/2018 Prescriptions ordered this encounter Disp Refills Start End GABAPENTIN 300 MG CAPSULE 180 * 1 09/23/2019 03/21/2020 Route: ORAL Sig: Take 1 capsule by mouth twice daily for 180 days. Morni ng and bedtime Medications Discontinued During This Encounter gabapentin (NEURONTIN) 300 mg capsule 180 * 1 03/17/20192019 Route: ORAL Sig: Take 1 capsule by mouth twice daily for 180 days. Morni ng and bedtime Disc: Reason for discontinue is not on file. Encounter Status:Closed by CLARENCE LEVINE on 09/23/19 surgical pathology on 2019-09-15 SURGICAL Normal 09-15-2019 [place] PATHOLOGY ADDENDUM PRESENT Clinic [place] Specimen originated from [facility] ([id number]) Specimen #: [id number] Submitting Physician: RUBIN LORENZO MD FINAL DIAGNOSIS 1. Stomach, antrum, biopsy (A) Gastric antral and oxyntic mu cosa with chronic inactive gastritis. - An immunohistochemical stain for Helicobacter pylori organ isms has been ordered and will be reported in an addendum. 2. Esophagus, distal, biopsy (B) Cardio-oxyntic mucosa with no diagnostic abnormality. Gilbert Ross M.D., PhD (Electronic Signature) SPECIMEN SUBMITTED A: ANTRUM, BIOPSY H/H B: DISTAL ESOPHAGUS, BIOPSY ADDENDUM Date Ordered: 09/17/2019 Date Reported: 09/17/2019 Given the background of chronic gastritis a Helicobacter p ylori immunostain was performed on block A1 and is negative for Helicobacter p ylori organisms. Laboratory Developed Test (LDT) Disclaimer: Positive and negative controls stain appropriately. Performa nce characteristics of immunohistochemical, immunofluorescent an d chromogenic in-situ hybridization tests have been determined by [facility] ([facility]) in a manner consistent with CLIA requirements. One or more of these tests have not been cleared or approved by the FDA. [facility] is regula amando under CLIA as qualified to perform high-complexity testing. These tests ar e used for clinical purposes. They should not be regarded as investigat ional or for research. Addendum Pathologist: Gilbert Ross M.D., PhD Electronic Signature CLINICAL DATA Z12.11, K22.70 GROSS DESCRIPTION A. Received in formalin are two pieces of warren, soft tissue a ggregating to 0.8 x 0.2 x 0.2 cm. Totally submitted in one cassette. B. Received in formalin are two pieces of warren, soft tissue a ggregating to 0.5 x 0.4 x 0.2 cm. Totally submitted in one cassette. Gross examination performed at [facility], [address] [place] [address] J 09/16/2019 1:31:26 AM Date of Report: 09/17/2019 Date of Procedure: 09/15/2019 Date of Receipt: 09/15/2019 Submitted by: RUBIN LORENZO MD Location: W010 Diagnostic interpretation performed at [place] [address]. CLIA Number: [id number] pt ed on 2019-09-15 PT ED HNO ID: [id number] Normal 09-15-2019 [facility] Author: Isabella Billingsley) MANNY Kimble [place] ([id number]) Service: ? Author Type: Registered Nurse Type: Patient Education Filed: 09/15/2019 9:18 AM Note Text: POST OP LEARNING RESPONSE INSTRUCTION PROVIDED TO: Patient and Spouse METHOD OF INSTRUCTION: Individual instruction Written instruction - handouts Verbal instruction PATIENT / FAMILY RESPONSE: Verbalizes understanding of: INFE CTION MANAGEMENT-Signs and symptoms of an infection and importance of contacting the physician MEDICAL REGIMEN-Importance of following prescribed medical r egimen PAIN MANAGEMENT-Effective strategies to manage pain in addit ion to pain medication PHYSICAL RESTRICTIONS-Physical restrictions and recommendati ons after discharge from the hospital POST-PROCEDURE INSTRUCTIONS-Correct actions to take to reduc e post procedure complications PATIENT SAFETY PRINCIPLES SYMPTOM MANAGEMENT-Correct actions to take to manage symptom s associated with his/her disease/illness WORSENING CONDITION-Signs and symptoms of a worsening condit ion that warrant a call to the physician FOLLOW-UP PLAN: Patient instructed to call with any further issues Follow up phone call. Contact information given. SUPPLEMENTAL MATERIAL: AVS REFERRAL (RECOMMENDATION): None Electronically Signed By: Isabella Kimble RN In Department: AMBULATORY SURGERY PT ED HNO ID: [id number] Normal 09-15-2019 [facility] Author: Isabella Kimble RN [place] ([id number]) Service: ? Author Type: Registered Nurse Type: Patient Education Filed: 09/15/2019 7:48 AM Note Text: PRE OP LEARNING ASSESSMENT PROCEDURE/SURGERY: GI PROCEDURES: Colonoscopy and EGD READINESS TO LEARN COGNITIVE ABILITY: Alert and oriented MOTIVATION TO LEARN: Eager Interested FAMILY SUPPORT: High - Very involved in pt care PATIENT LEARNS BEST BY: Individual Instruction Written Instruction - Hand-outs Verbal Instruction Multiple Methods FACTORS AFFECTING LEARNING: None PHYSICAL LIMITATIONS AFFECTING LEARNING: None Electronically Signed By: Isabella Kimble RN In Department: AMBULATORY SURGERY nursing prog on NURSING PROG HNO ID: [id number] Normal 09-15-19 [facility] Author: Isabella Kimble RN [place] ([id number]) Service: ? Author Type: Registered Nurse Type: Nursing Progress Note Filed: 09/15/2019 9:40 AM Note Text: Patient did not experience a fall prior to discharge. Patient did not experience a burn prior to discharge. Isabella Kimble RN NURSING PROG HNO ID: [id number] Normal 09-15-19 [facility] Author: Isabella Kimble RN [place] ([id number]) Service: ? Author Type: Registered Nurse Type: Nursing Progress Note Filed: 09/15/2019 9:16 AM Note Text: Patient sitting up in bed tolerating snack and drink without problems. Isabella Kimble RN NURSING PROG HNO ID: [id number] Normal 09-15-19 [facility] Author: Isabella Kimble RN [place] ([id number]) Service: ? Author Type: Registered Nurse Type: Nursing Progress Note Filed: 09/15/2019 8:56 AM Note Text: Patient arrived to PACU, on left side, abdomen soft. Patient resting comfortably. Isabella Kimble RN NURSING PROG HNO ID: [id number] Normal 09-15-19 [facility] Author: Quiana Mcgovern RN [place] ([id number]) Service: Nursing Author Type: Registered Nurse Type: Nursing Progress Note Filed: 09/15/2019 8:46 AM Note Text: Patient did not experience a fall within the Intraoperative area. Patient did not experience a burn within the Intraoperative area. Quiana Mcgovern RN NURSING PROG HNO ID: [id number] Normal 09-15-19 [facility] Author: Isabella Kimble RN [place] ([id number]) Service: ? Author Type: Registered Nurse Type: Nursing Progress Note Filed: 09/15/2019 8:20 AM Note Text: Patient did not experience a fall within the Preoperative ar ea. Patient did not experience a burn within the Preoperative ar ea. [facility] PRE-OP NURSING HAND OFF NOTE SBAR Hand off given to Marisol Young RN. Hand off was communicated verbally and at the patient's beds yumiko and all questions were answered. MANNY Fernandes RN history physical on 2019-09-15 HISTORY HNO ID: [id number] Normal 09-15-2019 [place] PHYSICAL Author: Rubin Tejeda Service: Gastroenterology [place] Author Type: Physician ([id number]) Type: HANDP Filed: 09/15/2019 8:21 AM Note Text: PROCEDURAL SEDATION HISTORY AND PHYSICAL EXAM SERVICE DATE: 09/15/2019 SERVICE TIME: 8:20 AM Subjective HPI: This is a 79 year old female who presents with Strickland' s esophagus and the need for screening colonoscopy PAST ANESTHESIA HISTORY: No history of adverse event PAST MEDICAL HISTORY Diagnosis Date - Acute gastritis without mention of hemorrhage 10/31/2007 - Adverse reaction to non-steroidal anti-inflammatory drug ( NSAID) 03/28/2010 - KATHERIN positive 03/04/2014 - Strickland's esophagus - C. difficile diarrhea 10/18/2011 - Cataract 04/17/2013 [facility], Dr. Dada Rodríguez. Mild cataract in L eye- no need for cataract surgery at this time. Continue to follow u p the cataract. 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 At thi s time, we anticipate that the patient will be discharged home once cli nically stable. Plan: - Discuss needs with patient. - Collaborate wi Case management to facilitate DC process - Will continue to evalu ate during the post op period. - Desat study 11/14/14: patient will need home oxygen (2 L with exertion only) - Discharge home today with home ca re for assistance with chest tube to Heimlich. Return to [facility] on Sun11/18/[address] removal . - Enlargement of lymph nodes 12/20/2006 - Esophagitis, unspecified - Hemorrhage of gastrointestinal tract, unspecified - Hyperreflexia 08/02/2011 - Hypertension - Hypoxia 11/14/2014 Desat study done 11/14/14: Home oxygen needed (2 L/min via real al cannula with exertion and while sleeping). A face to face encounter was performed during this hospital admission regarding the need for oxygen . The patient verbalized understanding and consents to this therapy. - LVATS ODALIS Lobectomy 11/05/2014 74 year old never smoker who had a nodule identified on a fl reening scan in the past due to a family concern regarding asbestosis. Th e nodule slowly grew from 1.0 to 1.5 cm in about 6yrs. 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 On 11/10/14, Dr. Villagomez performed video assisted left upper lobectomy. Ramirze drain removed POD 4, air leak in CT Plan: -Chest tube to heimlich valve. Monitor air leak and daily yields. Discharge home with heimlich -Pain management -Out o f bed, cough, deep breathe, acapella, frequent ambulation. -Carb controlle d diet . - Migraines 11/11/2014 - Orthostatic hypotension vasovagal syncope - Osteoporosis, unspecified - Snoring - Tendonitis of ankle, right 05/03/2011 - Type II or unspecified type diabetes mellitus without ment ion of complication, not stated as uncontrolled 02/07/2010 - Urge urinary incontinence 12/16/2013 - Variants of migraine, not elsewhere classified, without me ntion of intractable migraine without mention of status migrainosus PAST SURGICAL HISTORY Procedure Laterality Date - CATARACT SURGERY, COMPLEX 04/2010 right eye - COLONOSCOP W/ OR W/O BRSH SPEC 10/31/2007 Colonoscopy - EGD W/O BRSH SPECIMEN W/BX 11/01/09 - EGD W/O BRSH SPECIMEN W/BX 11/23/11 - EGD W/O OR W/BRUSH/WASH 08/09/2004 EGD - EGD W/O OR W/BRUSH/WASH 10/31/2007 EGD - EGD W/O OR W/BRUSH/WASH 11/28/13 EGD - EGD W/O OR W/BRUSH/WASH 10/08/2014 EGD - EGD W/O OR W/BRUSH/WASH 10/15/15 EGD - EGD W/O OR W/BRUSH/WASH 09/10/2017 EGD - LUNG SURGERY HX - PAST SURGICAL HISTORY OF rotator cuff - REMOVAL ADENOIDS,PRIMARY,<12 Y/O Adenoidectomy - REMOVAL OF LUNG,LOBECTOMY 11/09/2014 VATS left upper lobectomy - REMOVAL OF TONSILS,<12 Y/O Tonsillectomy Prior to Admission medications as of 09/15/19 0728 Medication Sig Last Dose Taking glimepiride (AMARYL) 2 mg tablet Take 1 tablet by mouth twic e daily with meals. 09/15/2019 at 0600 Yes sertraline (ZOLOFT) 50 mg tablet Take 1 tablet by mouth once daily. 09/14/2019 at Unknown time Yes LORazepam (ATIVAN) 1 mg tablet TAKE 1/2 TO 1 TABLET BY MOUTH EVERY DAY NEEDED FOR FOR ANXIETY 09/14/2019 at Unknown time Yes PREMARIN vaginal cream APPLY 0.5 GRAMS VAGINALLY BEFORE BED EVERY NIGHT FOR 14 DAYS THEN USE TWICE A WEEK FOR 3 MONTHS 09/14/2019 at U nknown time Yes Cephalexin 250 mg tab Take 1 tablet by mouth daily at bedtim e. (Dr Don) 09/14/2019 at Unknown time Yes oxybutynin ER (DITROPAN XL) 10 mg 24 hr tablet Take 1 tablet by mouth twice daily. (Dr Don) 09/14/2019 at Unknown time Yes metoprolol succinate ER (TOPROL XL) 200 mg 24 hr tablet Take 1 tablet by mouth once daily. 09/15/2019 at 0600 Yes esomeprazole (NEXIUM) 40 mg capsule Take 1 capsule by mouth DAILY (6 AM). 09/14/2019 at Unknown time Yes insulin glargine (LANTUS SOLOSTAR U-100 INSULIN) 100 unit/mL (3 mL) inpn Inject 24 Units subcutaneously daily at bedtime. 09/13/2019 at Unknown time Yes blood sugar diagnostic (EASY TOUCH TEST STRIP) test strip Ch serena blood sugars 2x per day and as needed Dx: E11.9 insulin: yes 020 at Unknown time Yes Cholecalciferol, Vitamin D3, 1,000 unit cap Take 2 capsules by mouth once daily. 09/14/2019 at Unknown time Yes Insulin Troy, Disposable, (EASY TOUCH) 31 gauge x 3/16 n dle Use 1 needle for each dose. 2x daily 09/14/2019 at Unknown time Yes insulin aspart U-100 (NOVOLOG FLEXPEN U-100 INSULIN) 100 uni t/mL (3 mL) inpn Inject 8 Units subcutaneously twice daily with meals. A djust as directed 09/13/2019 at Unknown time Yes atorvastatin (LIPITOR) 10 mg tablet Take 1 tablet by mouth o nce daily. 09/14/2019 at Unknown time Yes COMPOUNDED PRESCRIPTION Custom orthotics (E08.40, Z79.4) Edilma betes 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 condition with diabetic neuropath y, with long-term current use of insulin 09/14/2019 at Unknown time Ye s blood sugar diagnostic (ONETOUCH ULTRA TEST) test strip Test blood sugar(s) 2 times daily. Dx: Type 2 DM - Controlled E11.9 Ins ulin: Yes 09/14/2019 at Unknown time Yes Lancets (ONETOUCH ULTRASOFT LANCETS) lancets Test blood suga r(s) 2 times daily. Dx: Type 2 DM - Controlled E11.9 , Insulin: Yes 020 at Unknown time Yes Blood-Glucose Meter (ONETOUCH ULTRA2) monitoring kit 1 Each as needed. One Touch Meter Kit Diagnosis: Type 2 DM - Controlled E11.9 2019 at Unknown time Yes Lancets (EASY TOUCH LANCETS) lancets 1 Each twice daily. DX: 250.00 insulin 09/14/2019 at Unknown time Yes multivitamins(DAILY MULTIVITAMIN TAB) Take one(1) tablet danuta ly. Past Week at Unknown time Yes Miscellaneous Medical Supply [facility] [place] Custom Orthotics (E08.40, Z79.4) 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, with long-term current use of insulin Unknown at Unknown paulino e codeine-guaiFENesin (VIRTUSSIN AC) 10-100 mg/5 mL syrup Take 5 mL by mouth three times daily as needed for Cough for up to 7 days. vit C/E/Zn/coppr/lutein/zeaxan (PRESERVISION AREDS-2 ORAL) T rajesh by mouth twice daily. gabapentin (NEURONTIN) 300 mg capsule Take 1 capsule by mout h twice daily for 180 days. Morning and bedtime SUMAtriptan (IMITREX) 50 mg tablet Take 1 tablet by mouth. a t onset of headache. May take another tablet as needed one hour later. Unknown at Unknown time capsaicin (ZOSTRIX) 0.025 % cream Apply 3 application to aff ected area three times daily. Unknown at Unknown time ALLERGIES Allergen Reactions - Adhesive Tape (Chapis* Hives Rash around bandaid never been tested for latex allergy - Aspirin Contraindication-Medical Surgical GI bleed - Boniva [Ibandronate] GI Upset Esophageal burning - Carafate [Sucralfat* Other: See Comments feels poorly - Ciprofloxacin Other: See Comments photosensitivity, dermatitis - Codeine GI Upset - Ibuprofen GI Upset - Iodine Vomiting - Lansoprazole Diarrhea - Metformin Diarrhea - Neosporin [Neomycin* Rash blisters - Protonix [Pantopraz* Diarrhea - Relafen [Nabumetone] GI Upset, Vomiting - Actos [Pioglitazone* Swelling Objective PHYSICAL EXAM: The remainder of the physical exam is noncont ributory. AIRWAY: Airway Visualization of Uvula: Yes Mouth opening greater than 2 fingerbreadths: Yes Neck Full Range of Motion: Yes LUNGS: Lungs clear to auscultation, Good diaphragmatic excur srinath CARDIAC: Normal S1 and S2; no rubs, murmurs, or gallops Assessment/Plan ASA Class: ASA Class:: Patient with mild systemic disease Active Problems: * No active hospital problems. * Resolved Problems: * No resolved hospital problems. * Provisional Diagnosis/Treatment Plan: Strickland's esophagus an d removed for screening colonoscopy/EGD and colonoscopy SEDATION GOAL: Moderate SIGNATURE: Rubin Lorenzo MD PATIENT NAME: Ana Benavides mack DATE: September 15, 2019 TIME: 8:20 AM PAGER: obsolete on 2019-09 OBSOLETE Refill (INTMWS) Normal 09-13-2019 Mannie [facility] DIANELYSMARIELLAVINCENT Wheeler ([id number]) 1940 [facility] Time Provider Department ([id number]) 09/13/19 CLARENCE BERRY (LOLI) INTMWS During your visit today, we recorded the following informati on about you: Chelsy Vogel RN 09/13/2019 10:40 AM Signed Patient has been identified by name and date of : Yes Patient phones for refill(s): Pending Prescriptions Disp Refills GLIMEPIRIDE 2 MG TABLET 180 tablet 1 Sig: Take 1 tablet by mouth twice daily with meals. ABRAM: No SERTRALINE 50 MG TABLET 90 tablet 3 Sig: Take 1 tablet by mouth once daily. ABRAM: No Date of last office visit in primary care: 08/08/19, future appt. 10/24/19 Last 2 Encounter Wt Readings: Date: Wt: 08/08/2019 59 kg (130 lb) 06/18/2019 58.5 kg (129 lb) Previous labs/tests for medication: Diabetes: Hemoglobin A1C (%) Date Value 2019 7.9 10/29/2018 7.7 Hemoglobin A1C (POCT) (%) Date Value 08/08/2019 7.2 Blood Pressure: BUN (mg/dL) Date Value 2019 10 Sodium (mmol/L) Date Value 2019 139 Last 1 Encounter BP Readings: Date: BP: 08/08/2019 150/80 Liver Function: ALT (U/L) Date Value 2019 11 AST (U/L) Date Value 2019 13 Please advise. Thank you. Chelsy Vogel RN Allergies As of Date: 09/13/2019 Noted Allergy Reaction ADHESIVE TAPE (ROSINS) 08/31/2008 4 - Hives Comments: Rash around bandaid never been tested for latex al lergy ASPIRIN 04/16/2018 15 - Contraindication-Medical [place]* Comments: GI bleed BONIVA (IBANDRONATE) 12/04/2008 8 - GI Upset Comments: Esophageal burning CARAFATE (SUCRALFATE) 04/24/2012 14 - Other: See Comments Comments: feels poorly CIPROFLOXACIN 12/01/2013 14 - Other: See Comments Comments: photosensitivity, dermatitis CODEINE 08/24/2005 8 - GI Upset IBUPROFEN 03/22/2006 8 - GI Upset IODINE 08/25/2008 11 - Vomiting LANSOPRAZOLE 11/01/2011 6 - Diarrhea METFORMIN 05/10/2011 6 - Diarrhea NEOSPORIN ([id number]*08/31/2008 2 - Rash Comments: blisters PROTONIX (PANTOPRAZOLE) 01/13/2010 6 - Diarrhea RELAFEN (NABUMETONE) 03/22/2006 8 - GI Upset 11 - Vomiting ACTOS (PIOGLITAZONE HCL) 12/03/2016 7 - Swelling Date Reviewed: 08/08/2019 Reviewed by: Cintia Macias LPN - Fully Assessed Reason for Visit: Refill Request [94] Visit Diagnoses:Anxiety [F41.9] 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, with long-term current use of insulin ([facility]) [E08.40, Z79.4] Order(s):glimepiride (AMARYL) 2 mg tabletTake 1 tablet by mouth twice daily with meals.Disp: 180 tabletRfl: 1 sertraline (ZOLOFT) 50 mg tabletTake 1 tablet by mouth once daily.Disp: 90 tabletRfl: 3 Prescriptions as of 09/13/2019 Sig: GLIMEPIRIDE 2 MG TABLET Take 1 tablet by mouth twice * SERTRALINE 50 MG TABLET Take 1 tablet by mouth once d* LORAZEPAM 1 MG TABLET TAKE 1/2 TO 1 TABLET BY MOUTH* PREMARIN 0.625 MG/GRAM VAGINA* APPLY 0.5 GRAMS VAGINALLY BEF * CEPHALEXIN 250 MG TABLET Take 1 tablet by mouth daily * OXYBUTYNIN CHLORIDE ER 10 MG * Take 1 tablet by mouth twice * MISCELLANEOUS MEDICAL SUPPLY * Custom Orthotics (E08.40, Z* METOPROLOL SUCCINATE ER 200 M* Take 1 tablet by mouth once d * ESOMEPRAZOLE MAGNESIUM 40 MG * Take 1 capsule by mouth DAILY * INSULIN GLARGINE (U-100) 100 * Inject 24 Units subcutaneousl * CODEINE 10 MG-GUAIFENESIN 100* Take 5 mL by mouth three time * BLOOD SUGAR DIAGNOSTIC STRIPS Check blood sugars 2x per day* PRESERVISION AREDS-2 ORAL Take by mouth twice daily. CHOLECALCIFEROL (VITAMIN D3) * Take 2 capsules by mouth once * GABAPENTIN 300 MG CAPSULE Take 1 capsule by mouth twice* PEN NEEDLE, DIABETIC 31 GAUGE* Use 1 needle for each dose. 2 * INSULIN ASPART (U-100) 100 UN* Inject 8 Units subcutaneously * ATORVASTATIN 10 MG TABLET Take 1 tablet by mouth once d* SUMATRIPTAN 50 MG TABLET Take 1 tablet by mouth. at on* COMPOUNDED PRESCRIPTION Custom orthotics (E08.40, Z7* BLOOD SUGAR DIAGNOSTIC STRIPS Test blood sugar(s) 2 times d* LANCETS Test blood sugar(s) 2 times * BLOOD-GLUCOSE METER KIT 1 Each as needed. One Touch M* CAPSAICIN 0.025 % TOPICAL CRE* Apply 3 application to affect * LANCETS 1 Each twice daily. DX: 250.0* DAILY MULTIVITAMIN TABLET Take one(1) tablet daily. Problem List As Of Date 09/13/2019 Noted Resolved SPRAIN ROTATOR CUFF [S43.429A] 01/10/2003 03/03/2003 Complete rupture of rotator cuff [M75.120] 03/03/20032016 OSTEOPOROSIS NOS [M81.0] 02/19/2006 ALLERGIC RHINITIS NOS [J30.9] 03/06/2006 GENERAL OSTEOARTHROSIS [M15.9] 03/06/2006 Restless legs syndrome (RLS) [G25.81] 06/19/2006 LUMBAR DISC DISPLACEMENT [M51.26] More... Enlargement of lymph nodes [R59.9] 12/20/2006 08/15/2016 INSOMNIA NOS [G47.00] 04/30/2007 LUNG NODULE [R22.2] 09/05/2007 04/30/2015 STRICKLAND'S ESOPHAGUS [K22.70] Acute gastritis without mention of hemorrhage [*10/31/2007 0 09/15/2016 Pure hypercholesterolemia [E78.00] 12/14/2009 11/11/2014 Diabetes 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 condition w*02/07/2010 More... Anxiety [F41.9] 05/03/2011 More... Tendonitis of ankle, right [M77.51] 05/03/2011 08/15/2016 C. difficile diarrhea [A04.72] 10/18/2011 09/15/2016 Esophagitis, unspecified [K20.9] 11/23/2011 IBS (irritable bowel syndrome) [K58.9] 02/01/2012 More... Cataract [H26.9] 04/17/2013 09/15/2016 More... HTN (hypertension) [I10] 08/04/2013 More... Urge urinary incontinence [N39.41] 12/16/2013 Esophageal reflux [K21.9] 10/08/2014 10/08/2014 More... DVT prophylaxis [Z29.9] 11/11/2014 08/15/2016 More... DISPOSITION AND FOLLOW-UP [V999.01] 11/11/2014 08/15/2016 More... Migraines [G43.909] 11/11/2014 More... Hypoxia [R09.02] 11/14/2014 09/15/2016 More... 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 Mouth dryness [R68.2] 11/06/2016 Hyperlipidemia [E78.5] 11/06/2016 Functional dyspepsia [K30] 08/20/2017 More... 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 Gastroesophageal reflux disease with esophagiti*08/20/2017 More... 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]11/22/2018 Prescriptions ordered this encounter Disp Refills Start End GLIMEPIRIDE 2 MG TABLET 180 * 1 09/14/2019 Route: ORAL Sig: Take 1 tablet by mouth twice daily with meals. SERTRALINE 50 MG TABLET 90 t* 3 09/14/2019 Route: ORAL Sig: Take 1 tablet by mouth once daily. Medications Discontinued During This Encounter glimepiride (AMARYL) 2 mg tablet 180 * 1 03/17/2019 09/14/2019 Route: ORAL Sig: Take 1 tablet by mouth twice daily with meals. Disc: Auto DC at discharge. sertraline (ZOLOFT) 50 mg tablet 90 t* 3 09/11/2018 09/14/2019 Route: ORAL Sig: Take 1 tablet by mouth once daily. Disc: Auto DC at discharge. Encounter Status:Closed by CLARENCE LEVINE on 09/14/19 progress on 2019-07 PROGRESS HNO ID: [id number] Normal 08-08-2019 [facility] Author: Alicia Blount [place] ([id number]) Service: ? Author Type: Physician Type: Progress Notes Filed: 09/02/2019 1:21 AM Note Text: Patient presents with: Follow Up SUBJECTIVE: Ana Ivory is a 79 year old year old lady here today f or 3 month follow up appointment for review of medical conditions. Teeth breaking off now. 2 teeth. Front top tooth broke. Seen dentist. Sugars up since in pain. Dr. Don gave her Mybetriq samples to take 2 per day. Als o taking 100 mg daily. Had cystoscopy per Dr. Aponte. Had irritated bladder. Still gets urgency. Dr. Don adjusted meds. No longer hav ing to go 10 to 12 times a night. Now just twice a night. Doing better overall. Depends can make her sore. Noted hair thinning on right side of head--lays on that side because of snoring if lays on back issue and s/p left lung surgery. Colonosocpy scheduled. Ongoing pain in mouth since had broken tooth and tooth extra cted. Hydrocodone was given for bladder issues by Dr. Aponte. Used it for bad days with dental pain. Able to open just a little to get spoon in. Only needed once daily as needed for severe pain. Blood pressure controlled without adverse effects from medic ations. 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 difficile diarrhea 10/18/2011 - Cataract 04/17/2013 [facility], Dr. Dada Rodríguez. Mild cataract in L eye- no need for cataract surgery at this time. Continue to follow u p the cataract. 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 At thi s time, we anticipate that the patient will be discharged home once cli nically stable. Plan: - Discuss needs with patient. - Collaborate wi Case management to facilitate DC process - Will continue to evalu ate during the post op period. - Desat study 11/14/14: patient will need home oxygen (2 L with exertion only) - Discharge home today with home ca re for assistance with chest tube to [facility]. Return to [facility] on Sun11/18/[address] removal . - Enlargement of lymph nodes 12/20/2006 - Esophagitis, unspecified - Hemorrhage of gastrointestinal tract, unspecified - Hyperreflexia 08/02/2011 - Hypertension - Hypoxia 11/14/2014 Desat study done 11/14/14: Home oxygen needed (2 L/min via real al cannula with exertion and while sleeping). A face to face encounter was performed during this hospital admission regarding the need for oxygen . The patient verbalized understanding and consents to this therapy. - LVATS ODALIS Lobectomy 11/05/2014 74 year old never smoker who had a nodule identified on a fl reening scan in the past due to a family concern regarding asbestosis. Th e nodule slowly grew from 1.0 to 1.5 cm in about 6yrs. 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 On 11/10/14, Dr. Villagomez performed video assisted left upper lobectomy. Ramirez drain removed POD 4, air leak in CT Plan: -Chest tube to heimlich valve. Monitor air leak and daily yields. Discharge home with heimlich -Pain management -Out o f bed, cough, deep breathe, acapella, frequent ambulation. -Carb controlle d diet . - Migraines 11/11/2014 - Orthostatic hypotension vasovagal syncope - Osteoporosis, unspecified - Snoring - Tendonitis of ankle, right 05/03/2011 - Type II or unspecified type diabetes mellitus without ment ion of complication, not stated as uncontrolled 02/07/2010 - Urge urinary incontinence 12/16/2013 - Variants of migraine, not elsewhere classified, without me ntion of intractable migraine without mention of status migrainosus Current Outpatient Medications Medication Sig - PREMARIN vaginal cream APPLY 0.5 GRAMS VAGINALLY BEFORE BE D EVERY NIGHT FOR 14 DAYS THEN USE TWICE A WEEK FOR 3 MONTHS - oxybutynin ER (DITROPAN XL) 10 mg 24 hr tablet Take 1 tabl et by mouth twice daily. (Dr Don) - LORazepam (ATIVAN) 1 mg tablet TAKE 1/2 TO 1 TABLET BY EZIO TH EVERY DAY NEEDED FOR FOR ANXIETY - metoprolol succinate ER (TOPROL XL) 200 mg 24 hr tablet Ta ke 1 tablet by mouth once daily. - esomeprazole (NEXIUM) 40 mg capsule Take 1 capsule by mout h DAILY (6 AM). - insulin glargine (LANTUS SOLOSTAR U-100 INSULIN) 100 unit/ mL (3 mL) inpn Inject 24 Units subcutaneously daily at bedtime. - blood sugar diagnostic (EASY TOUCH TEST STRIP) test strip Check blood sugars 2x per day and as needed Dx: E11.9 insulin: yes - vit C/E/Zn/coppr/lutein/zeaxan (PRESERVISION AREDS-2 ORAL) Take by mouth twice daily. - Cholecalciferol, Vitamin D3, 1,000 unit cap Take 2 capsule s by mouth once daily. - glimepiride (AMARYL) 2 mg tablet Take 1 tablet by mouth tw ice daily with meals. - gabapentin (NEURONTIN) 300 mg capsule Take 1 capsule by mo uth twice daily for 180 days. Morning and bedtime - Insulin Troy, Disposable, (EASY TOUCH) 31 gauge x 10/26 ndle Use 1 needle for each dose. 2x daily - insulin aspart U-100 (NOVOLOG FLEXPEN U-100 INSULIN) 100 u nit/mL (3 mL) inpn Inject 8 Units subcutaneously twice daily with meals. A djust as directed - atorvastatin (LIPITOR) 10 mg tablet Take 1 tablet by mouth once daily. - SUMAtriptan (IMITREX) 50 mg tablet Take 1 tablet by mouth. at onset of headache. May take another tablet as needed one hour later. - sertraline (ZOLOFT) 50 mg tablet Take 1 tablet by mouth on ce daily. - blood sugar diagnostic (ONETOUCH ULTRA TEST) test strip Te st blood sugar(s) 2 times daily. Dx: Type 2 DM - Controlled E11.9 Ins ulin: Yes - Lancets (ONETOUCH ULTRASOFT LANCETS) lancets Test blood daigle gar(s) 2 times daily. Dx: Type 2 DM - Controlled E11.9 , Insulin: Yes - Blood-Glucose Meter (Curaxis PharmaceuticalTOUCH ULTRA2) monitoring kit 1 Eac h as needed. One Touch Meter Kit Diagnosis: Type 2 DM - Controlled E11.9 - capsaicin (ZOSTRIX) 0.025 % cream Apply 3 application to a ffected area three times daily. - Lancets (EASY TOUCH LANCETS) lancets 1 Each twice daily. D X: 250.00 insulin - multivitamins(DAILY MULTIVITAMIN TAB) Take one(1) tablet d aily. - Cephalexin 250 mg tab Take 1 tablet by mouth daily at bedt dinorah. (Dr Don) - codeine-guaiFENesin (VIRTUSSIN AC) 10-100 mg/5 mL syrup Ta ke 5 mL by mouth three times daily as needed for Cough for up to 7 days . - COMPOUNDED PRESCRIPTION Custom orthotics (E08.40, Z79.4) D iabetes 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 condition with diabetic neuropath y, with long-term current use of insulin No current facility-administered medications for this visit. OBJECTIVE: BP 150/80 Pulse 76 Resp 20 Wt 59 kg (130 lb) BMI 23. 40 kg/m? Patient is alert, oriented times 3, no apparent distress, af fect is bright, reactive. Last 5 Encounter BP Readings: Date: BP: 08/08/2019 150/80 06/18/2019 124/74 04/25/2019 128/72 12/31/2018 118/82 11/01/2018 132/70 Last 5 Encounter Wt Readings: Date: Wt: 08/08/2019 59 kg (130 lb) 06/18/2019 58.5 kg (129 lb) 04/25/2019 59.9 kg (132 lb) 12/31/2018 61.7 kg (136 lb) 11/01/2018 61.7 kg (136 lb) Oral: a front broken teeth noted. Upper molar back upper too th with black spot. Heart: Regular rate, rhythm, no murmurs, gallops, rubs. Lungs: Clear to auscultation, bilaterally, breathing non lab ored. Ext: No cyanosis, clubbing, or edema. Hemoglobin A1C (%) Date Value 2019 7.9 10/29/2018 7.7 07/19/2018 7.8 02/22/2018 7.6 08/21/2017 8.2 Hemoglobin A1C (POCT) (%) Date Value 08/08/2019 7.2 ASSESSMENT AND PLAN: Encounter Diagnosis ICD-10-CM 1. Diabetes 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 condition with diabet ic neuropathy, with long-term current use of insulin (HCC) E08.40 HEMOGLOBI N A1C (POC) Z79.4 Miscellaneous Medical Supply misc ALBUMIN/CREAT RATIO RND UR 2. Pain, dental K08.89 HYDROcodone-acetaminophen (NORCO) 5-3 25 mg per tablet 3. History of tooth extraction, unspecified edentulism class K08.409 HYDROcodone-acetaminophen (NORCO) 5-325 mg per tablet 4. Closed fracture of tooth with routine healing, subsequent encounter S02.5XXD HYDROcodone-acetaminophen (NORCO) 5-325 mg per tabl et 5. Hair thinning L65.9 right side of head (same side that lays on) 6. Essential hypertension I10 7. Bladder irritability N32.89 8. Nocturia R35.1 improved with treatment per Yazmin Don. Continue present man agement. Above multiple issues addressed with patient. Patient involved in shared decision making for management of medical issues. Improved control of DM with HgA1C down to 7.2. Continue pres ent management. BP controlled. Continue present management. Discussed management of hair thinning. Further evaluation an d treatment as indicated. History and medications reviewed. Epic updated as needed Refills and/or prescriptions taken care of and meds adjusted as indicated after reviewed history, exam and labs. Health Maintenance reviewed. Updated record and/or ordered t ests as recorded. Encouraged on efforts at healthy diet and regular exercise a nd adequate sleep. Treating for acute pain as noted above. Further evaluation a nd treatment as indicated. PDMP website checked and validated. All prescriptions have b een APPROPRIATELY filled. No suspicious activity was identified. 08/08/2019 by Alicia Blount MD The majority of the visit was spent counseling and/or coordi nating care for the patient. [id number] time was at least 40 minutes. Alicia Blonut MD cnov on 2019-08-08 CNOV Office Visit (INTMWS) Normal 08-08-20 19 [place] [facility] ANA IVORY ([id number]) 1940 [facility] Date Time Provider Department ([id number]) 08/08/19 1:00 PM ALICIA BLOUNT INTMWS During your visit today, we recorded the following informati on about you: Pulse Respiration Blood pressure Weight 76/minute 20/minute 150/80 59 kg Alicia Blount MD 09/02/2019 1:21 AM Signed Patient presents with: Follow Up SUBJECTIVE: Ana Ivory is a 79 year old year old lady here today for 3 month follow up appointment for review of medical conditions. Teeth breaking off now. 2 teeth. Front top tooth broke. Seen dentist. Sugars up since in pain. Dr. Don gave her Mybetriq samples to take 2 per day. A lso taking 100 mg daily. Had cystoscopy per Dr. Aponte. Had irritated bladder. Still gets urgency. Dr. Don adjusted meds. No longer having to go 10 to 12 times a night. Now just twice a night. Doing better overall. Depends can make her sore. Noted hair thinning on right side of head--lays on that side because of snoring if lays on back issue and s/p left lung surgery. Colonosocpy scheduled. Ongoing pain in mouth since had broken tooth and tooth extra cted. Hydrocodone was given for bladder issues by Dr. Aponte . Used it for bad days with dental pain. Able to open just a little to get spoon in. Only neede d once daily as needed for severe pain. Blood pressure controlled without adverse effects from medic ations. 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 difficile diarrhea 10/18/2011 - Cataract 04/17/2013 [facility], Dr. Dada johnson Mild cataract in L eye- no need for cataract surgery at this time. Continue to follow up the cat aract. 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 At thi s time, we anticipate that the patient will be discharged home once c linically stable. Plan: - Discuss needs with patient. - Collaborate with Case management to facilitate DC process - Will continue to evaluate during the post op period. - Desat study 11/14/14: patient will need home oxygen (2 L with exertion only) - Discharge home today with [facility] care for assistance with chest tube to [facility]. Return to [facility] on Sunday11/18/[address] . - Enlargement of lymph nodes 12/20/2006 - Esophagitis, unspecified - Hemorrhage of gastrointestinal tract, unspecified - Hyperreflexia 08/02/2011 - Hypertension - Hypoxia 11/14/2014 Desat study done 11/14/14: Home oxygen needed (2 L/min via n irene cannula with exertion and while sleeping). A face to face encounter was performed during this hospital admission regarding the need for o xygen. The patient verbalized understanding and consents to this therapy. - LVATS ODALIS Lobectomy 11/05/2014 74 year old never smoker who had a nodule identified on a screening scan in the past due to a family concern regarding asbaman tosis. The nodule slowly grew from 1.0 to 1.5 cm in about 6yrs. 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 On 11/10/14 , Dr. Villagomez performed video assisted left upper lobectomy. Ramirez drain removed POD 4, air l eak in CT Plan: -Chest tube to heimlich valve. Monitor air leak and daily yields. Discharge home with heimlich -Pain management -Out of bed, c ough, deep breathe, acapella, frequent ambulation. -Carb controlled diet . - Migraines 11/11/2014 - Orthostatic hypotension vasovagal syncope - Osteoporosis, unspecified - Snoring - Tendonitis of ankle, right 05/03/2011 - Type II or unspecified type diabetes mellitus without ment ion of complication, not stated as uncontrolled 02/07/2010 - Urge urinary incontinence 12/16/2013 - Variants of migraine, not elsewhere classified, without me ntion of intractable migraine without mention of status migrainosus Current Outpatient Medications Medication Sig - PREMARIN vaginal cream APPLY 0.5 GRAMS VAGINAL LY BEFORE BED EVERY NIGHT FOR 14 DAYS THEN USE TWICE A WEEK FOR 3 MONTHS - oxybutynin ER (DITROPAN XL) 10 mg 24 hr tablet Take 1 tablet by mouth twice daily. (Dr Don) - LORazepam (ATIVAN) 1 mg tablet TAKE 1/2 TO 1 TABLET BY M OUTH EVERY DAY NEEDED FOR FOR ANXIETY - metoprolol succinate ER (TOPROL XL) 200 mg 24 hr tablet Ta ke 1 tablet by mouth once daily. - esomeprazole (NEXIUM) 40 mg capsule Take 1 capsule by mo uth DAILY (6 AM). - insulin glargine (LANTUS SOLOSTAR U-100 INSULIN) 100 unit/ mL (3 mL) inpn Inject 24 Units subcutaneously daily at bedtime. - blood sugar diagnostic (EASY TOUCH ABHIJIT T STRIP) test strip Check blood sugars 2x per day and as needed Dx: E11.9 insulin: yes - vit C/E/Zn/coppr/lutein/zeaxan (PRESERVISION AREDS-2 ORAL) Take by mouth twice daily. - Cholecalciferol, Vitamin D3, 1,000 unit cap Take 2 capsu les by mouth once daily. - glimepiride (AMARYL) 2 mg tablet Take 1 tablet by mouth tw ice daily with meals. - gabapentin (NEURONTIN) 300 mg capsule Take 1 capsule by mouth twice daily for 180 days. Morning and bedtime - Insulin Troy, Disposable, (EASY CARROL CH) 31 gauge x 3/16 ndle Use 1 needle for each dose. 2x daily - insulin aspart U-100 (NOVOLOG FLEXPEN U-100 INSULIN) 100 unit/mL (3 mL) inpn Inject 8 Units subcutaneously twice daily with meals. Adjust as directed - atorvastatin (LIPITOR) 10 mg tablet Take 1 tablet by mouth once daily. - SUMAtriptan (IMITREX) 50 mg tablet Take 1 tablet by mouth. at onset of headache. May take another tablet as needed one hour later. - sertraline (ZOLOFT) 50 mg tablet Take 1 tablet by mouth on ce daily. - blood sugar diagnostic (ON ETOUCH ULTRA TEST) test strip Test blood sugar(s) 2 times daily. Dx: Type 2 DM - Controlled E11.9 Insulin: Yes - Lancets (ONETOUCH ULTRASOFT LANCETS) lancets Test blood daigle gar(s) 2 times daily. Dx: Type 2 DM - Controlled E11.9 , Insulin: Yes - Blood-Glucose Meter (ONETOUCH ULTRA2) monitoring kit 1 Each as needed. One Touch Meter Kit Diagnosis: Type 2 DM - Controlled E11.9 - capsaicin (ZOSTRIX) 0.025 % cream Appl y 3 application to affected area three times daily. - Lancets (EASY TOUCH LANCETS) lancets 1 Each tw ice daily. DX: 250.00 insulin - multivitamins(DAILY MULTIVITAMIN TAB) Take one(1) tablet d aily. - Cephalexin 250 mg tab Take 1 tablet by mouth d aily at bedtime. (Dr Don) - codeine-guaiFENesin (VIRTUSSIN AC) 10-100 mg/5 mL sy rup Take 5 mL by mouth three times daily as needed for Cough for up to 7 days. 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 OBJECTIVE: BP 150/80 Pulse 76 Resp 20 Wt 59 kg (130 lb) BMI 23. 40 kg/m? Patient is alert, oriented times 3, no apparent distress, affect is bright, reactive. Last 5 Encounter BP Readings: Date: BP: 08/08/2019 150/80 06/18/2019 124/74 04/25/2019 128/72 12/31/2018 118/82 11/01/2018 132/70 Last 5 Encounter Wt Readings: Date: Wt: 08/08/2019 59 kg (130 lb) 06/18/2019 58.5 kg (129 lb) 04/25/2019 59.9 kg (132 lb) 12/31/2018 61.7 kg (136 lb) 11/01/2018 61.7 kg (136 lb) Oral: a front broken teeth n oted. Upper molar back upper tooth with black spot. Heart: Regular rate, rhythm, no murmurs, gallops, rubs. Lungs: Clear to auscultation, bilaterally, breathing non lab ored. Ext: No cyanosis, clubbing, or edema. Hemoglobin A1C (%) Date Value 2019 7.9 10/29/2018 7.7 07/19/2018 7.8 02/22/2018 7.6 08/21/2017 8.2 Hemoglobin A1C (POCT) (%) Date Value 08/08/2019 7.2 ASSESSMENT AND PLAN: Encounter Diagnosis ICD-10-CM 1. 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 Pain, dental K08.89 HYDROcodone-acetaminophen (NORC O) 5-325 mg per tablet 3. History of tooth extraction, unspecified edentulism class K08.409 HYDROcodone-acetaminophen (NORCO) 5-325 mg per tablet 4. Closed fracture of tooth with routine healing, subsequent encounter S02.5XXD HYDROcodone-acetaminophen (NORCO) 5-325 mg per tablet 5. Hair thinning L65.9 right side of head (same side that lays on) 6. Essential hypertension I10 7. Bladder irritability N32.89 8. Nocturia R35.1 improved with treatment per Yazmin Don. Continue present man agement. Above multiple issues addressed with patient. Patient involved in shared decision making for managem ent of medical issues. Improved control of DM with HgA1C down to 7.2. Continue pr esent management. BP controlled. Continue present management. Discussed management of hair thinning. Further evaluation an d treatment as indicated. History and medications reviewed. Epic updated as needed Refills and/or prescriptions taken care of and meds adjusted as indicated after reviewed history, exam and labs. Health Maintenance reviewed. Updated record and/ or ordered tests as recorded. Encouraged on efforts at healthy diet an d regular exercise and adequate sleep. Treating for acute pain as noted above. Further evaluation and treatment as indicated. PDMP website checked and validated. All prescrip tions have been APPROPRIATELY filled. No suspicious activity was identified. 1 10/09/2018 by Alicia Blount MD The majority of the visit wa s spent counseling and/or coordinating care for the patient. Xknn-fq-hchw time was at least 40 minutes. MD Alicia Rodríguez MD 08/08/2019 2:07 PM Signed Try Biotin--may help with hair, skin, nails and teeth. Vitamin D--may take up to 40 00 IU daily till we check labs and see if need more. Calcium--make sure getting 1 200 to 1500 mg per day total. Okay if get from diet alone or with supplements. Avoid taking too much calcium. Referring Provider: SELF [200] Allergies As of Date: 08/08/2019 Noted Allergy Reaction ADHESIVE TAPE (ROSINS) 08/31/2008 4 - Hives Comments: Rash around bandaid never been tested for latex al lergy ASPIRIN 04/16/2018 15 - Contraindication-Medical [place]* Comments: GI bleed BONIVA (IBANDRONATE) 12/04/2008 8 - GI Upset Comments: Esophageal burning CARAFATE (SUCRALFATE) 04/24/2012 14 - Other: See Comments Comments: feels poorly CIPROFLOXACIN 12/01/2013 14 - Other: See Comments Comments: photosensitivity, dermatitis CODEINE 08/24/2005 8 - GI Upset IBUPROFEN 03/22/2006 8 - GI Upset IODINE 08/25/2008 11 - Vomiting LANSOPRAZOLE 11/01/2011 6 - Diarrhea METFORMIN 05/10/2011 6 - Diarrhea NEOSPORIN ([id number]*08/31/2008 2 - Rash Comments: blisters PROTONIX (PANTOPRAZOLE) 01/13/2010 6 - Diarrhea RELAFEN (NABUMETONE) 03/22/2006 8 - GI Upset 11 - Vomiting ACTOS (PIOGLITAZONE HCL) 12/03/2016 7 - Swelling Date Reviewed: 08/08/2019 Reviewed by: Cintia Macias LPN - Fully Assessed Reason for Visit: Follow Up [171] Primary Visit Diagnosis: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, with long-term current use of insulin ([facility]) [E08.40, Z79.4] Other Visit Diagnoses:Pain, dental [K08.89] History of tooth extraction, unspecified edentulism class [K08.409] Closed fracture of tooth with routine healing, subsequent encounter [S02.5XXD] Hair thinning [L65.9] Comment:right side of head (same side that lays on) Essential hypertension [I10] Bladder irritability [N32.89] Nocturia [R35.1] Comment:improved with treatment per Yazmin Don. Continue present management. Order(s):HEMOGLOBIN A1C (POC) [5969415] Order #: [id number] pec. #:[id number] Cephalexin 250 mg tabTake 1 tablet by mouth daily at bedtime . (Dr Don)Disp: Rfl: oxybutynin ER (DITROPAN XL) 10 mg 24 hr tabletTake 1 tablet by mouth twice daily. (Dr Don)Disp: Rfl: Miscellaneous Medical Supply miscCustom Orthotics (E08.40, Z 79.4) 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, with long-term current use of insulinDisp: 2 Eac hRfl: 0 ALBUMIN/CREAT RATIO RND UR [SQUACR] Order #: [id number] FUTU RE [] HYDROcodone-acetaminophen (NORCO) 5-325 mg per tab letTake 1 tablet by mouth twice daily as needed for Pain for up to 7 d ays.Disp: 14 tabletRfl: 0 Prescriptions as of 08/08/2019 Sig: PREMARIN 0.625 MG/GRAM VAGINA* APPLY 0.5 GRAMS VAGINALLY BEF * OXYBUTYNIN CHLORIDE ER 10 MG * Take 1 tablet by mouth twice * LORAZEPAM 1 MG TABLET TAKE 1/2 TO 1 TABLET BY MOUTH* METOPROLOL SUCCINATE ER 200 M* Take 1 tablet by mouth once d * ESOMEPRAZOLE MAGNESIUM 40 MG * Take 1 capsule by mouth DAILY * INSULIN GLARGINE (U-100) 100 * Inject 24 Units subcutaneousl * BLOOD SUGAR DIAGNOSTIC STRIPS Check blood sugars 2x per day* PRESERVISION AREDS-2 ORAL Take by mouth twice daily. CHOLECALCIFEROL (VITAMIN D3) * Take 2 capsules by mouth once * GLIMEPIRIDE 2 MG TABLET Take 1 tablet by mouth twice * GABAPENTIN 300 MG CAPSULE Take 1 capsule by mouth twice* PEN NEEDLE, DIABETIC 31 GAUGE* Use 1 needle for each dose. 2 * INSULIN ASPART (U-100) 100 UN* Inject 8 Units subcutaneously * ATORVASTATIN 10 MG TABLET Take 1 tablet by mouth once d* SUMATRIPTAN 50 MG TABLET Take 1 tablet by mouth. at on* SERTRALINE 50 MG TABLET Take 1 tablet by mouth once d* BLOOD SUGAR DIAGNOSTIC STRIPS Test blood sugar(s) 2 times d* LANCETS Test blood sugar(s) 2 times * BLOOD-GLUCOSE METER KIT 1 Each as needed. One Touch M* CAPSAICIN 0.025 % TOPICAL CRE* Apply 3 application to affect * LANCETS 1 Each twice daily. DX: 250.0* DAILY MULTIVITAMIN TABLET Take one(1) tablet daily. CEPHALEXIN 250 MG TABLET Take 1 tablet by mouth daily * MISCELLANEOUS MEDICAL SUPPLY * Custom Orthotics (E08.40, Z* HYDROCODONE 5 MG-ACETAMINOPHE* Take 1 tablet by mouth twice * CODEINE 10 MG-GUAIFENESIN 100* Take 5 mL by mouth three time * COMPOUNDED PRESCRIPTION Custom orthotics (E08.40, Z7* Problem List As Of Date 08/08/2019 Noted Resolved SPRAIN ROTATOR CUFF [S43.429A] 01/10/2003 03/03/2003 Complete rupture of rotator cuff [M75.120] 03/03/20032016 OSTEOPOROSIS NOS [M81.0] 02/19/2006 ALLERGIC RHINITIS NOS [J30.9] 03/06/2006 GENERAL OSTEOARTHROSIS [M15.9] 03/06/2006 Restless legs syndrome (RLS) [G25.81] 06/19/2006 LUMBAR DISC DISPLACEMENT [M51.26] More... Enlargement of lymph nodes [R59.9] 12/20/2006 08/15/2016 INSOMNIA NOS [G47.00] 04/30/2007 LUNG NODULE [R22.2] 09/05/2007 04/30/2015 STRICKLAND'S ESOPHAGUS [K22.70] Acute gastritis without mention of hemorrhage [*10/31/2007 0 09/15/2016 Pure hypercholesterolemia [E78.00] 12/14/2009 11/11/2014 Diabetes 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 condition w*02/07/2010 More... Anxiety [F41.9] 05/03/2011 More... Tendonitis of ankle, right [M77.51] 05/03/2011 08/15/2016 C. difficile diarrhea [A04.72] 10/18/2011 09/15/2016 Esophagitis, unspecified [K20.9] 11/23/2011 IBS (irritable bowel syndrome) [K58.9] 02/01/2012 More... Cataract [H26.9] 04/17/2013 09/15/2016 More... HTN (hypertension) [I10] 08/04/2013 More... Urge urinary incontinence [N39.41] 12/16/2013 Esophageal reflux [K21.9] 10/08/2014 10/08/2014 More... DVT prophylaxis [Z29.9] 11/11/2014 08/15/2016 More... DISPOSITION AND FOLLOW-UP [V999.01] 11/11/2014 08/15/2016 More... Migraines [G43.909] 11/11/2014 More... Hypoxia [R09.02] 11/14/2014 09/15/2016 More... 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 Mouth dryness [R68.2] 11/06/2016 Hyperlipidemia [E78.5] 11/06/2016 Functional dyspepsia [K30] 08/20/2017 More... 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 Gastroesophageal reflux disease with esophagiti*08/20/2017 More... 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 Vitamin D--may take up to 4000 IU daily till we check labs a nd see if need more. Calcium--make sure getting 1200 to 1500 mg per day total. Ok ay if get from diet alone or with supplements. Avoid taking too much calciu m. Prescriptions ordered this encounter Disp Refills Start End CEPHALEXIN 250 MG TABLET 08/08/2019 Class: Med Update Route: ORAL Sig: Take 1 tablet by mouth daily at bedtime. (Dr Don) OXYBUTYNIN CHLORIDE ER 10 MG TABLET,* 08/08/2019 Class: Med Update Route: ORAL Sig: Take 1 tablet by mouth twice daily. (Dr Don) MISCELLANEOUS MEDICAL SUPPLY [facility] 2 Ea* 0 08/08/2019 Class: Print RX Sig: Custom Orthotics (E08.40, Z79.4) 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, with long-term current u se of insulin HYDROCODONE 5 MG-ACETAMINOPHEN 325 M* 14 t* 0 08/08/201910/2019 Class: Print RX Route: ORAL Sig: Take 1 tablet by mouth twice daily as needed for Pain for up to 7 days. Medications Discontinued During This Encounter oxybutynin ER (DITROPAN XL) 10 mg 24* 06/17/2019 08/08/2019 Class: Historical Med Route: ORAL Sig: Take 10 mg by mouth once daily. Disc: Reason for discontinue is not on file. pentosan (ELMIRON) 100 mg capsule 08/08/2019 Class: Historical Med Route: ORAL Sig: Take 100 mg by mouth twice daily. Disc: Reason for discontinue is not on file. Fesoterodine (TOVIAZ) 8 mg Tb24 08/08/2019 Class: Historical Med Route: ORAL Sig: Take by mouth. Disc: Reason for discontinue is not on file. Follow-up and Disposition History Recorded Encounter Status:Closed by ALICIA LBOUNT MD on 09/02/19 obsolete on 2019-07 OBSOLETE Refill (INTMWS) Normal 07-23-2019 Mannie mancini [facility] ANA IVORY ([id number]) 1940 [facility] Date Time Provider Department ([id number]) 07/23/19 ALICIA BLOUNT INTMWS During your visit today, we recorded the following informati on about you: Padmaja Morris 07/23/2019 9:06 AM Signed Patient has been identified by name and date of : Yes Pending Prescriptions Disp Refills LORAZEPAM 1 MG TABLET 30 tablet 2 Sig: TAKE 1/2 TO 1 TABLET BY MOUTH EVERY DAY NEEDED FOR F OR ANXIETY BULL Class: C-IV ABRAM: No RX INSTRUCTIONS: Patient aware RX will be sent to pharmacy. No need to notify patient. Padmaja Blount MD 07/23/2019 4:59 PM Signed Patient's request for medication is as follows: Signed Prescriptions Disp Refills LORazepam (ATIVAN) 1 mg tablet 30 tablet 0 Sig: TAKE 1/2 TO 1 TABLET BY MOUTH EVERY DAY NEEDED FOR F OR ANXIETY BULL Class: C-IV ABRAM: No Authorizing Provider: ALICIA BLOUNT Prescription(s) printed as above. Please process accordingly . [facility]. All prescrip tions have been APPROPRIATELY filled. No suspicious activity was identified. 1 09/23/2018 by Alicia Blount MD Will give RX with refills at her appointment later this mo nth so can try to time better that will have r efills to last till the next appointment after that. Riddhi Marie LPN 07/24/2019 3:01 PM Signed rx faxed to the pharmacy. Allergies As of Date: 07/23/2019 Noted Allergy Reaction ADHESIVE TAPE (ROSINS) 08/31/2008 4 - Hives Comments: Rash around bandaid never been tested for latex al lergy ASPIRIN 04/16/2018 15 - Contraindication-Medical [place]* Comments: GI bleed BONIVA (IBANDRONATE) 12/04/2008 8 - GI Upset Comments: Esophageal burning CARAFATE (SUCRALFATE) 04/24/2012 14 - Other: See Comments Comments: feels poorly CIPROFLOXACIN 12/01/2013 14 - Other: See Comments Comments: photosensitivity, dermatitis CODEINE 08/24/2005 8 - GI Upset IBUPROFEN 03/22/2006 8 - GI Upset IODINE 08/25/2008 11 - Vomiting LANSOPRAZOLE 11/01/2011 6 - Diarrhea METFORMIN 05/10/2011 6 - Diarrhea NEOSPORIN ([id number]-[id number]-AT*08/31/2008 2 - Rash Comments: blisters PROTONIX (PANTOPRAZOLE) 01/13/2010 6 - Diarrhea RELAFEN (NABUMETONE) 03/22/2006 8 - GI Upset 11 - Vomiting ACTOS (PIOGLITAZONE HCL) 12/03/2016 7 - Swelling Date Reviewed: 06/18/2019 Reviewed by: Rubin Lorenzo - Fully Assessed Reason for Visit: Refill Request [94] Refill Request [94] Reason For Visit History Recorded Visit Diagnosis:Anxiety [F41.9] Order(s):LORazepam (ATIVAN) 1 mg tabletT RAJESH 1/2 TO 1 TABLET BY MOUTH EVERY DAY NEEDED FOR FOR ANXIETYDisp: 30 tabletRfl: 0 Prescriptions as of 07/23/2019 Sig: LORAZEPAM 1 MG TABLET TAKE 1/2 TO 1 TABLET BY MOUTH* METOPROLOL SUCCINATE ER 200 M* Take 1 tablet by mouth once d * ESOMEPRAZOLE MAGNESIUM 40 MG * Take 1 capsule by mouth DAILY * INSULIN GLARGINE (U-100) 100 * Inject 24 Units subcutaneousl * CODEINE 10 MG-GUAIFENESIN 100* Take 5 mL by mouth three time * BLOOD SUGAR DIAGNOSTIC STRIPS Check blood sugars 2x per day* PENTOSAN POLYSULFATE SODIUM 1* Take 100 mg by mouth twice da * FESOTERODINE ER 8 MG TABLET,E* Take by mouth. PRESERVISION AREDS-2 ORAL Take by mouth twice daily. CHOLECALCIFEROL (VITAMIN D3) * Take 2 capsules by mouth once * GLIMEPIRIDE 2 MG TABLET Take 1 tablet by mouth twice * GABAPENTIN 300 MG CAPSULE Take 1 capsule by mouth twice* PEN NEEDLE, DIABETIC 31 GAUGE* Use 1 needle for each dose. 2 * INSULIN ASPART (U-100) 100 UN* Inject 8 Units subcutaneously * ATORVASTATIN 10 MG TABLET Take 1 tablet by mouth once d* SUMATRIPTAN 50 MG TABLET Take 1 tablet by mouth. at on* SERTRALINE 50 MG TABLET Take 1 tablet by mouth once d* COMPOUNDED PRESCRIPTION Custom orthotics (E08.40, Z7* BLOOD SUGAR DIAGNOSTIC STRIPS Test blood sugar(s) 2 times d* LANCETS Test blood sugar(s) 2 times * BLOOD-GLUCOSE METER KIT 1 Each as needed. One Touch M* CAPSAICIN 0.025 % TOPICAL CRE* Apply 3 application to affect * LANCETS 1 Each twice daily. DX: 250.0* DAILY MULTIVITAMIN TABLET Take one(1) tablet daily. Problem List As Of Date 07/23/2019 Noted Resolved SPRAIN ROTATOR CUFF [S43.429A] 01/10/2003 03/03/2003 Complete rupture of rotator cuff [M75.120] 03/03/20032016 OSTEOPOROSIS NOS [M81.0] 02/19/2006 ALLERGIC RHINITIS NOS [J30.9] 03/06/2006 GENERAL OSTEOARTHROSIS [M15.9] 03/06/2006 Restless legs syndrome (RLS) [G25.81] 06/19/2006 LUMBAR DISC DISPLACEMENT [M51.26] More... Enlargement of lymph nodes [R59.9] 12/20/2006 08/15/2016 INSOMNIA NOS [G47.00] 04/30/2007 LUNG NODULE [R22.2] 09/05/2007 04/30/2015 STRICKLAND'S ESOPHAGUS [K22.70] Acute gastritis without mention of hemorrhage [*10/31/2007 0 09/15/2016 Pure hypercholesterolemia [E78.00] 12/14/2009 11/11/2014 Diabetes 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 condition w*02/07/2010 More... Anxiety [F41.9] 05/03/2011 More... Tendonitis of ankle, right [M77.51] 05/03/2011 08/15/2016 C. difficile diarrhea [A04.72] 10/18/2011 09/15/2016 Esophagitis, unspecified [K20.9] 11/23/2011 IBS (irritable bowel syndrome) [K58.9] 02/01/2012 More... Cataract [H26.9] 04/17/2013 09/15/2016 More... HTN (hypertension) [I10] 08/04/2013 More... Urge urinary incontinence [N39.41] 12/16/2013 Esophageal reflux [K21.9] 10/08/2014 10/08/2014 More... DVT prophylaxis [Z29.9] 11/11/2014 08/15/2016 More... DISPOSITION AND FOLLOW-UP [V999.01] 11/11/2014 08/15/2016 More... Migraines [G43.909] 11/11/2014 More... Hypoxia [R09.02] 11/14/2014 09/15/2016 More... 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 Mouth dryness [R68.2] 11/06/2016 Hyperlipidemia [E78.5] 11/06/2016 Functional dyspepsia [K30] 08/20/2017 More... 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 Gastroesophageal reflux disease with esophagiti*08/20/2017 More... 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 Encounter Status:Closed by CLARENCE LEVINE on 07/24/19 obsolete on 2019-06 OBSOLETE Refill (INTMWS) Normal 06-20-2019 Mannie mancini [facility] ANA IVORY ([id number]) 1940 [facility] Date Time Provider Department ([id number]) 06/20/19 ALICIA BLOUNT INTErisWS During your visit today, we recorded the following informati on about you: Shasta Reyes Pss 06/20/2019 10:35 AM Signed Patient's request for medication is as follows: Pending Prescriptions Disp Refills METOPROLOL SUCCINATE ER 200 MG TABLET,EXTENDED RELEASE 24 HR 90 tablet 3 Sig: Take 1 tablet by mouth once daily. ABRAM: No Prescription(s) as above. Please process accordingly. Shasta Reyes Pss Allergies As of Date: 06/20/2019 Noted Allergy Reaction ADHESIVE TAPE (ROSINS) 08/31/2008 4 - Hives Comments: Rash around bandaid never been tested for latex al lergy BONIVA (IBANDRONATE) 12/04/2008 8 - GI Upset Comments: Esophageal burning CARAFATE (SUCRALFATE) 04/24/2012 14 - Other: See Comments Comments: feels poorly CIPROFLOXACIN 12/01/2013 14 - Other: See Comments Comments: photosensitivity, dermatitis CODEINE 08/24/2005 8 - GI Upset IBUPROFEN 03/22/2006 8 - GI Upset IODINE 08/25/2008 11 - Vomiting LANSOPRAZOLE 11/01/2011 6 - Diarrhea METFORMIN 05/10/2011 6 - Diarrhea NEOSPORIN ([id number]*08/31/2008 2 - Rash Comments: blisters PROTONIX (PANTOPRAZOLE) 01/13/2010 6 - Diarrhea RELAFEN (NABUMETONE) 03/22/2006 8 - GI Upset 11 - Vomiting ACTOS (PIOGLITAZONE HCL) 12/03/2016 7 - Swelling Date Reviewed: 06/18/2019 Reviewed by: Rubin Lorenzo - Fully Assessed Reason for Visit: Refill Request [94] Visit Diagnosis:Essential hypertension [I10] Order(s):metoprolol succinate ER (TOPROL XL) 200 mg 24 hr tabletTake 1 tablet by mouth once daily.Disp: 90 tabletRfl: 3 Prescriptions as of 06/20/2019 Sig: METOPROLOL SUCCINATE ER 200 M* Take 1 tablet by mouth once d * ESOMEPRAZOLE MAGNESIUM 40 MG * Take 1 capsule by mouth DAILY * INSULIN GLARGINE (U-100) 100 * Inject 24 Units subcutaneousl * CODEINE 10 MG-GUAIFENESIN 100* Take 5 mL by mouth three time * BLOOD SUGAR DIAGNOSTIC STRIPS Check blood sugars 2x per day* PENTOSAN POLYSULFATE SODIUM 1* Take 100 mg by mouth twice da * FESOTERODINE ER 8 MG TABLET,E* Take by mouth. PRESERVISION AREDS-2 ORAL Take by mouth twice daily. CHOLECALCIFEROL (VITAMIN D3) * Take 2 capsules by mouth once * LORAZEPAM 1 MG TABLET TAKE 1/2 TO 1 TABLET BY MOUTH* GLIMEPIRIDE 2 MG TABLET Take 1 tablet by mouth twice * GABAPENTIN 300 MG CAPSULE Take 1 capsule by mouth twice* PEN NEEDLE, DIABETIC 31 GAUGE* Use 1 needle for each dose. 2 * INSULIN ASPART (U-100) 100 UN* Inject 8 Units subcutaneously * ATORVASTATIN 10 MG TABLET Take 1 tablet by mouth once d* SUMATRIPTAN 50 MG TABLET Take 1 tablet by mouth. at on* SERTRALINE 50 MG TABLET Take 1 tablet by mouth once d* COMPOUNDED PRESCRIPTION Custom orthotics (E08.40, Z7* BLOOD SUGAR DIAGNOSTIC STRIPS Test blood sugar(s) 2 times d* LANCETS Test blood sugar(s) 2 times * BLOOD-GLUCOSE METER KIT 1 Each as needed. One Touch M* CAPSAICIN 0.025 % TOPICAL CRE* Apply 3 application to affect * LANCETS 1 Each twice daily. DX: 250.0* DAILY MULTIVITAMIN TABLET Take one(1) tablet daily. Problem List As Of Date 06/20/2019 Noted Resolved SPRAIN ROTATOR CUFF [S43.429A] INVALID FOR*03/03/2003 Complete rupture of rotator cuff [M75.120] INVALID FOR*08/15 OSTEOPOROSIS NOS [M81.0] INVALID FOR* ALLERGIC RHINITIS NOS [J30.9] INVALID FOR* GENERAL OSTEOARTHROSIS [M15.9] INVALID FOR* Restless legs syndrome (RLS) [G25.81] INVALID FOR* LUMBAR DISC DISPLACEMENT [M51.26] More... Enlargement of lymph nodes [R59.9] INVALID FOR*08/15/2016 INSOMNIA NOS [G47.00] INVALID FOR* LUNG NODULE [R22.2] INVALID FOR*04/30/2015 STRICKLAND'S ESOPHAGUS [K22.70] Acute gastritis without mention of hemorrhage [*INVALID FOR* 09/15/2016 Pure hypercholesterolemia [E78.00] INVALID FOR*11/11/2014 Diabetes 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 condition w*INVALID FOR* More... Anxiety [F41.9] INVALID FOR* More... Tendonitis of ankle, right [M77.51] INVALID FOR*08/15/2016 C. difficile diarrhea [A04.72] INVALID FOR*09/15/2016 Esophagitis, unspecified [K20.9] INVALID FOR* IBS (irritable bowel syndrome) [K58.9] INVALID FOR* More... Cataract [H26.9] INVALID FOR*09/15/2016 More... HTN (hypertension) [I10] INVALID FOR* More... Urge urinary incontinence [N39.41] INVALID FOR* Esophageal reflux [K21.9] INVALID FOR*10/08/2014 More... DVT prophylaxis [Z29.9] INVALID FOR*08/15/2016 More... DISPOSITION AND FOLLOW-UP [V999.01] INVALID FOR*08/15/2016 More... Migraines [G43.909] INVALID FOR* More... Hypoxia [R09.02] INVALID FOR*09/15/2016 More... Recurrent bronchospasm [J98.09] INVALID FOR* More... 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 Mouth dryness [R68.2] INVALID FOR* Hyperlipidemia [E78.5] INVALID FOR* Functional dyspepsia [K30] INVALID FOR* More... 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] INVALID FOR* More... Gastroesophageal reflux disease with esophagiti*INVALID FOR* More... 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 Medications Discontinued During This Encounter metoprolol succinate ER (TOPROL XL) * 90 t* 3 04/20/20182018 Route: ORAL Sig: Take 1 tablet by mouth once daily. Disc: Reason for discontinue is not on file. Encounter Status:Closed by CLARENCE LEVINE on 06/20/19 hosp on 2019-06-18 HOSP Patient:Ana Ivory [birth year] [facility] MRN: Shawn ([id number]) Height:5' 2.5(1.588 m) Weight:No patient weight recorded within the last 30 days. Outpatient Medications as of 09/15/19: glimepiride (AMARYL) 2 mg tablet sertraline (ZOLOFT) 50 mg tablet LORazepam (ATIVAN) 1 mg tablet PREMARIN vaginal cream Cephalexin 250 mg tab oxybutynin ER (DITROPAN XL) 10 mg 24 hr tablet [employer] mis metoprolol succinate ER (TOPROL XL) 200 mg 24 hr tablet esomeprazole (NEXIUM) 40 mg capsule insulin glargine (LANTUS SOLOSTAR U-100 INSULIN) 100 unit/mL (3 mL) inpn codeine-guaiFENesin (VIRTUSSIN AC) 10-100 mg/5 mL syrup blood sugar diagnostic (EASY TOUCH TEST STRIP) test strip vit C/E/Zn/coppr/lutein/zeaxan (PRESERVISION AREDS-2 ORAL) Cholecalciferol, Vitamin D3, 1,000 unit cap gabapentin (NEURONTIN) 300 mg capsule Insulin Troy, Disposable, (EASY TOUCH) 31 gauge x 3/16 n dle insulin aspart U-100 (NOVOLOG FLEXPEN U-100 INSULIN) 1 00 unit/mL (3 mL) inpn atorvastatin (LIPITOR) 10 mg tablet SUMAtriptan (IMITREX) 50 mg tablet COMPOUNDED PRESCRIPTION blood sugar diagnostic (ONETOUCH ULTRA TEST) test strip Lancets (ONETOUCH ULTRASOFT LANCETS) lancets Blood-Glucose Meter (ONETOUCH ULTRA2) monitoring kit capsaicin (ZOSTRIX) 0.025 % cream Lancets (EASY TOUCH LANCETS) lancets multivitamins(DAILY MULTIVITAMIN TAB) Admission/Clinic Administered Medications as of 09/15/19: lactated ringers infusion Problem List: Osteoporosis, unspecified [M81.0] Allergic rhinitis, cause unspecified [J30.9] Generalized osteoarthrosis, unspecified site [M15.9] Restless legs syndrome (RLS) [G25.81] LUMBAR DISC DISPLACEMENT [M51.26] Insomnia, unspecified [G47.00] Strickland's esophagus [K22.70] Diabetes 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 condition with edilma betic neuropathy (HCC) [E08.40] Anxiety [F41.9] Esophagitis, unspecified [K20.9] IBS (irritable bowel syndrome) [K58.9] HTN (hypertension) [I10] Urge urinary incontinence [N39.41] Migraines [G43.909] Recurrent bronchospasm [J98.09] 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 ([facility]) [I63.211] 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] Mouth dryness [R68.2] Hyperlipidemia [E78.5] Functional dyspepsia [K30] 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] Gastroesophageal reflux disease with esophagitis [K21.0] Vitamin D deficiency [E55.9] 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] Allergies: Adhesive Tape (Rosins) Aspirin Boniva [Ibandronate] Carafate [Sucralfate] Ciprofloxacin Codeine Ibuprofen Iodine Lansoprazole Metformin Neosporin [Iiwwgybt-Nnmdckskvp-Oueohrplw] Protonix [Pantoprazole] Relafen [Nabumetone] Actos [Pioglitazone Hcl] Date Verified: 09/15/19 Lab Values No results within the last 30 days for the following basenam es: K,HCT Progress Notes ([facility]): Chelsy Vogel RN 09/13/2019 10:40 AM Signed Patient has been identified by name and date of : Yes Patient phones for refill(s): Pending Prescriptions Disp Refills GLIMEPIRIDE 2 MG TABLET 180 tablet 1 Sig: Take 1 tablet by mouth twice daily with meals. ABRAM: No SERTRALINE 50 MG TABLET 90 tablet 3 Sig: Take 1 tablet by mouth once daily. ABRAM: No Date of last office visit in primary care: 08/08/19, future appt. 10/24/19 Last 2 Encounter Wt Readings: Date: Wt: 08/08/2019 59 kg (130 lb) 06/18/2019 58.5 kg (129 lb) Previous labs/tests for medication: Diabetes: Hemoglobin A1C (%) Date Value 2019 7.9 10/29/2018 7.7 Hemoglobin A1C (POCT) (%) Date Value 08/08/2019 7.2 Blood Pressure: BUN (mg/dL) Date Value 2019 10 Sodium (mmol/L) Date Value 2019 139 Last 1 Encounter BP Readings: Date: BP: 08/08/2019 150/80 Liver Function: ALT (U/L) Date Value 2019 11 AST (U/L) Date Value 2019 13 Please advise. Thank you. Chelsy Vogel RN Progress Notes ([facility]): Nargis Miller Pss 09/04/2019 4:29 PM Signed Patient has been identified by name and date of : Yes Pending Prescriptions Disp Refills LORAZEPAM 1 MG TABLET 30 tablet 0 Sig: TAKE 1/2 TO 1 TABLET BY MOUTH EVERY DAY NEEDED FOR F OR ANXIETY BULL Class: C-IV ABRAM: No RX INSTRUCTIONS: Patient aware RX will be sent to pharmacy. No need to notify patient. Nargis Miller Pss Riddhi Goetzsosa TERRY 09/05/2019 10:27 AM Signed Last refill was to last until 10/22/19. This is too early. Padmaja Espinoza Pss 09/11/2019 2:33 PM Signed Patient states she is out and didn't get last Please call patient she doesn't understand Alicia Blount MD 09/11/2019 4:09 PM Signed I meant to give RX at her appointment 30 pills lasts 1 month or so. July RX had end date for 90 days out and did not catch that when sent RX in July. The following approved medic ation requests have been transmitted electronically. Signed Prescriptions Disp Refills LORazepam (ATIVAN) 1 mg tablet 30 tablet 2 Sig: TAKE 1/2 TO 1 TABLET BY MOUTH EVERY DAY NEEDED FOR F OR ANXIETY BULL Class: C-IV ABRAM: No Authorizing Provider: ALICIA BLOUNT MD history physical on 2019-06-18 HISTORY HNO ID: [id number] Normal 06-18-2019 [place] PHYSICAL Author: Medhat Barrera [facility] Service: ? [place] Author Type: Nurse Practitioner ([id number]) Type: HANDP Filed: 06/18/2019 10:28 AM Note Text: Ana Ivory a 79 year old female who is referred by Dr. Blount for screening colonoscopy. 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 The patient denies a family history of colon cancer. The pat ient has a history of Strickland's, GERD and hiatal hernia as well as irri table bowel syndrome. Her history also includes IDDM, HTN, a cerebral in farct, migraine headaches, OA, restless legs and anxiety. The patient was seen by Dr. Lorenzo for upper endoscopy . The procedure report has been reviewed and findings as follows: Impression: ? ? - Esophageal mucosal changes secondary to es tablished ? short-segment Strickland's disease. Biops ied. ? - Erythematous mucosa in the antrum. B iopsied. ? - Normal examined duodenum. FINAL DIAGNOSIS 1. Antrum, biopsy (A) - Oxyntic mucosa with no diagnostic al teration. - No morphologic evidence of Helicobacter pylori. 2. Distal esophagus, biopsy (B) - Cardiac mucosa with chroni c inflammation, negative for intestinal metaplasia. The patient was seen by Dr. Price for colonoscopy 10/31/07. The procedure report has been reviewed and findings as follows: IMPRESSION: 1. ?Small non-bleeding internal hemorrhoids were present 2. ?Normal colonoscopic examination There were a few small diverticula noted in the left colon but only a few. Presenting complaint: The patient presents today reporting s he is using the Nexium 24 OTC, taking two each morning. She would like t o see if her medication plan covers it mail order. She is due for surveil neisha EGD after 09/10/19. The patient denies change in bowel habits, rectal bleeding o r abdominal pain. Having a bowel movement at least once a day. She would like to have the colonoscopy and the EGD the same day. REVIEW OF SYSTEMS: GENERAL: No weight loss, malaise or fevers HEENT: Negative for frequent or significant headaches, No ch anges in hearing or vision, no nose bleeds or other nasal problems NECK: Negative for lumps, goiter, pain and significant neck swelling RESPIRATORY: VATs left upper lobectomy 2011. CARDIOVASCULAR:HTN controlled. Negative for chest pain, leg swelling, CHF or palpitations GI: As reported above : Overactive bladder /interstitial cystitis. 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 HEMATOLOGY/LYMPHOLOGY Negative for prolonged bleeding, bruis ing easily or swollen nodes ENDOCRINE: Positive for diabetes mellitus on insulin NEURO: Numbness or tingling of feet and RLS. All other reviewed and negative other than HPI. 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 difficile diarrhea 10/18/2011 - Cataract 04/17/2013 [facility], Dr. Dada Rodríguez. Mild cataract in L eye- no need for cataract surgery at this time. Continue to follow u p the cataract. 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 At thi s time, we anticipate that the patient will be discharged home once cli nically stable. Plan: - Discuss needs with patient. - Collaborate [employer] Case management to facilitate DC process - Will continue to evalu ate during the post op period. - Desat study 11/14/14: patient will need home oxygen (2 L with exertion only) - Discharge home today with home ca re for assistance with chest tube to [facility]. Return to [facility] on Sun11/18/[address] . - Enlargement of lymph nodes 12/20/2006 - Esophagitis - Esophagitis, unspecified - Hemorrhage of gastrointestinal tract, unspecified - Hyperreflexia 08/02/2011 - Hypertension - Hypoxia 11/14/2014 Desat study done 11/14/14: Home oxygen needed (2 L/min via real al cannula with exertion and while sleeping). A face to face encounter was performed during this hospital admission regarding the need for oxygen . The patient verbalized understanding and consents to this therapy. - LVATS ODALIS Lobectomy 11/05/2014 74 year old never smoker who had a nodule identified on a sc reening scan in the past due to a family concern regarding asbestosis. Th e nodule slowly grew from 1.0 to 1.5 cm in about 6yrs. 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 On 11/10/14, Dr. Villagomez performed video assisted left upper lobectomy. Ramirez drain removed POD 4, air leak in CT Plan: -Chest tube to heimlich valve. Monitor air leak and daily yields. Discharge home with heimlich -Pain management -Out o f bed, cough, deep breathe, acapella, frequent ambulation. -Carb controlle d diet . - Migraines 11/11/2014 - Orthostatic hypotension vasovagal syncope - Osteoporosis, unspecified - Snoring - Tendonitis of ankle, right 05/03/2011 - Type II or unspecified type diabetes mellitus without ment ion of complication, not stated as uncontrolled 02/07/2010 - Urge urinary incontinence 12/16/2013 - Variants of migraine, not elsewhere classified, without me ntion of intractable migraine without mention of status migrainosus PAST SURGICAL HISTORY Procedure Laterality Date - CATARACT SURGERY, COMPLEX 04/2010 right eye - COLONOSCOP W/ OR W/O [facility] SPEC 10/31/2007 Colonoscopy - EGD W/O [facility] SPECIMEN W/BX 11/01/09 - EGD W/O [facility] SPECIMEN W/BX 11/23/11 - EGD W/O OR W/BRUSH/WASH 08/09/2004 EGD - EGD W/O OR W/BRUSH/WASH 10/31/2007 EGD - EGD W/O OR W/BRUSH/WASH 11/28/13 EGD - EGD W/O OR W/BRUSH/WASH 10/08/2014 EGD - EGD W/O OR W/BRUSH/WASH 10/15/15 EGD - EGD W/O OR W/BRUSH/WASH 09/10/2017 EGD - LUNG SURGERY HX - PAST SURGICAL HISTORY OF rotator cuff - REMOVAL ADENOIDS,PRIMARY,<12 Y/O Adenoidectomy - REMOVAL OF LUNG,LOBECTOMY 11/09/2014 VATS left upper lobectomy - REMOVAL OF TONSILS,<12 Y/O Tonsillectomy FAMILY HISTORY Problem Relation Age of Onset - Heart Mother - Cancer Mother Mesothelioma - Cancer Father LUNG - Hypertension Maternal Grandfather - Osteoporosis Sister - Heart Brother congenital heart problems - Breast Cancer Sister Current Outpatient Medications Medication Sig Dispense Refill - insulin glargine (LANTUS SOLOSTAR U-100 INSULIN) 100 unit/ mL (3 mL) inpn Inject 24 Units subcutaneously daily at bedtime. 15 mL 3 - codeine-guaiFENesin (VIRTUSSIN AC) 10-100 mg/5 mL syrup Ta ke 5 mL by mouth three times daily as needed for Cough for up to 7 days . 120 mL 0 - blood sugar diagnostic (EASY TOUCH TEST STRIP) test strip Check blood sugars 2x per day and as needed Dx: E11.9 insulin: yes 100 S trip 11 - pentosan (ELMIRON) 100 mg capsule Take 100 mg by mouth twi ce daily. - Fesoterodine (TOVIAZ) 8 mg Tb24 Take by mouth. - vit C/E/Zn/coppr/lutein/zeaxan (PRESERVISION AREDS-2 ORAL) Take by mouth twice daily. - Cholecalciferol, Vitamin D3, 1,000 unit cap Take 2 capsule s by mouth once daily. 0 - LORazepam (ATIVAN) 1 mg tablet TAKE 1/2 TO 1 TABLET BY EZIO TH EVERY DAY NEEDED FOR FOR ANXIETY 30 tablet 2 - glimepiride (AMARYL) 2 mg tablet Take 1 tablet by mouth tw ice daily with meals. 180 tablet 1 - gabapentin (NEURONTIN) 300 mg capsule Take 1 capsule by mo uth twice daily for 180 days. Morning and bedtime 180 capsule 1 - Insulin Troy, Disposable, (EASY TOUCH) 31 gauge x 16 ndle Use 1 needle for each dose. 2x daily 200 Each 3 - insulin aspart U-100 (NOVOLOG FLEXPEN U-100 INSULIN) 100 u nit/mL (3 mL) inpn Inject 8 Units subcutaneously twice daily with meals. A djust as directed 5 Pen 11 - atorvastatin (LIPITOR) 10 mg tablet Take 1 tablet by mouth once daily. 90 tablet 3 - SUMAtriptan (IMITREX) 50 mg tablet Take 1 tablet by mouth. at onset of headache. May take another tablet as needed one hour later. 10 tablet 5 - sertraline (ZOLOFT) 50 mg tablet Take 1 tablet by mouth on ce daily. 90 tablet 3 - albuterol HFA (PROVENTIL HFA, VENTOLIN HFA) 90 mcg/actuati on inhaler Inhale 2 Puffs as instructed every 4 hours as needed. Use pr ior to exercise and bedtime for exercise induced or cough variant a sthma (Patient not taking: Reported on 11/01/2018 ) 1 Inhaler 2 - oxybutynin ER (DITROPAN XL) 15 mg 24 hr Extended Rel Tab T rajesh 1 tablet by mouth once daily. (Urology) (Patient not taking: Reported on 04/25/2019 ) 90 tablet 3 - metoprolol succinate ER (TOPROL XL) 200 mg 24 hr tablet Ta ke 1 tablet by mouth once daily. 90 tablet 3 - COMPOUNDED PRESCRIPTION Custom orthotics (E08.40, Z79.4) D iabetes 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 condition with diabetic neuropath y, with long-term current use of insulin 2 Each 0 - esomeprazole (NEXIUM) 40 mg capsule Take 1 capsule by mout h twice daily before meals. 180 capsule 3 - blood sugar diagnostic (ONETOUCH ULTRA TEST) test strip Te st blood sugar(s) 2 times daily. Dx: Type 2 DM - Controlled E11.9 Ins ulin: Yes 100 Strip 11 - Lancets (ONETOUCH ULTRASOFT LANCETS) lancets Test blood daigle gar(s) 2 times daily. Dx: Type 2 DM - Controlled E11.9 , Insulin: Yes 100 Each 11 - Blood-Glucose Meter (ONETOUCH ULTRA2) monitoring kit 1 Eac h as needed. One Touch Meter Kit Diagnosis: Type 2 DM - Controlled E11.9 1 Each 0 - capsaicin (ZOSTRIX) 0.025 % cream Apply 3 application to a ffected area three times daily. 100 g 0 - Lancets (EASY TOUCH LANCETS) lancets 1 Each twice daily. D X: 250.00 insulin 100 Each 11 - multivitamins(DAILY MULTIVITAMIN TAB) Take one(1) tablet d aily. 0 No current facility-administered medications for this visit. SOCIAL HISTORY: Patient is . She has never smoked. She reports her al cohol use as very rarely. PHYSICAL EXAMINATION: Blood pressure 124/74, pulse 76, weight 58.5 kg (129 lb). General Appearance: Well appearing, alert, in no acute distr ess, well-hydrated, well nourished. Skin: Skin color, texture, turgor normal, no suspicious rash es or lesions. Head: Normocephalic, no masses, lesions or abnormalities. Eyes: Anicteric sclera. Oropharynx: Lips, mucosa, and tongue normal, teeth and gums normal, oropharynx normal. Neck: Supple, no adenopathy. Lungs: lungs clear to auscultation. No wheezing, rhonchi, ra les. Heart: RRR without murmur. Abdomen: Abdomen soft, non-tender. Bowel sounds normal. No m asses, organomegaly. Extremities: No deformities or edema. Neurologic: Gait normal. Sensation grossly intact. Impression: colorectal cancer screening 2)Abdiaziz's esophagus 3)GERD 4)functional bowel disorder Plan: The patient will continue current medications. She carol l be scheduled for an upper endoscopy as well as a colonoscopy. Preparation for the procedures, using Miralax and Dulcolax as the laxative, have been explained in detail. The risks, benefits, anticipated outcom es and possible complications were mentioned, including including f ailure to complete the endoscopy and perforation. I explained the proc edure in understandable terms and the patient was given printed mater ial concerning the planned procedure. The patient had the opportunity to as k questions concerning the planned procedure. The patient freely consent s to the planned procedure. The patient reports that she feels comfortable adjusting her insulin while on the clear liquid diet/prep for the colonoscopy. The patient is encouraged to call with any questions or conc erns, or should there be any change in health status between now and the scheduled procedure. I have personally interviewed and examined this patient. I h ave read the information that the MA documented in this encounter. I spen t 30 minutes in the visit, with more than 50% of the total [id number]-[id number] t dinorah of the visit in counseling / coordination of care. Medhat Barrera RN APRN.NEMESIO eason on 2019-06-18 CNOV Office Visit ([facility]) Normal 06-18-20 19 [place] [facility] ANA IVORY ([id number]) 1940 [facility] Time Provider Department ([id number]) 06/18/19 9:20 AM MEDHAT BARRERA During your visit today, we recorded the following informati on about you: Pulse Blood pressure Weight 76/minute 124/74 58.5 kg Medhat Barrera RN CLIENT SUPPORT CONSULTANT.CALL OUT CLERK 06/18/2019 10:28 AM Signed Ana Wheeler Dianelys a 79 year old female who is referred by Dr. Blount for screening colonoscopy. The patient has been seen previ ously due to Strickland's esophagus and is due for surveillance after September 10. The patient denies a family history of c olon cancer. The patient has a history of Strickland's, GERD and hiatal hernia as well as irritable bowel syndrome. Her history also includes IDDM, HTN, a cerebral infarct, m igraine headaches, OA, restless legs and anxiety. The patient was seen by Dr. Lorenzo for upper end oscopy 09/01/17. The procedure report has been reviewed and findings as follows: Impression: ? ? - Esophageal mucosal changes secondary to es tablished ? short-segment Strickland's disease. Biops ied. ? - Erythematous mucosa in the antrum. B iopsied. ? - Normal examined duodenum. FINAL DIAGNOSIS 1. Antrum, biopsy (A) - Oxyntic mucosa with no diagnostic al teration. - No morphologic evidence of Helicobacter pylori. 2. Distal esophagus, biopsy (B) - Cardiac mucosa with supervisor [facility] alexander inflammation, negative for intestinal metaplasia. The patient was seen by Dr. Price for colonoscopy 10/31/07. The procedure report has been reviewed and findings as follows: IMPRESSION: 1. ?Small non-bleeding internal hemorrhoids were present 2. ?Normal colonoscopic examination There were a few small diverticula noted in the left colon but only a few. Presenting complaint: The patient presents today reporting she is using the Nexium 24 OTC, taking two each morning. She would like to se e if her medication plan covers it mail order. She is due for surve illance EGD after 09/10/19. The patient denies change in bowel habits, recta l bleeding or abdominal pain. Having a bowel movement at least once a day. She would like to have the colonoscopy and the EGD the same day. REVIEW OF SYSTEMS: GENERAL: No weight loss, malaise or fevers HEENT: Negative for frequent or significant headaches, No changes in hearing or vision, no nose bleeds or other nasal problems NECK: Negative for lumps, goiter, pain and significant neck swelling RESPIRATORY: VATs left upper lobectomy 2011. CARDIOVASCULAR:HTN controlled. Negative for chest pain , leg swelling, CHF or palpitations GI: As reported above : Overactive bladder /interstitial cystitis. 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 HEMATOLOGY/LYMPHOLOGY Negative for prolonged bleeding, bruis ing easily or swollen nodes ENDOCRINE: Positive for diabetes mellitus on insulin NEURO: Numbness or tingling of feet and RLS. All other reviewed and negative other than HPI. 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 difficile diarrhea 10/18/2011 - Cataract 04/17/2013 [facility], Dr. Dada johnson Mild cataract in L eye- no need for cataract surgery at this time. Continue to follow up the cat aract. 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 At thi s time, we anticipate that the patient will be discharged home once c linically stable. Plan: - Discuss needs with patient. - Collaborate with Case management to facilitate DC process - Will continue to evaluate during the post op period. - Desat study 11/14/14: patient will need home oxygen (2 L with exertion only) - Discharge home today with [facility] care for assistance with chest tube to [place]. Return to [facility] on Sunday11/18/[address] . - Enlargement of lymph nodes 12/20/2006 - Esophagitis - Esophagitis, unspecified - Hemorrhage of gastrointestinal tract, unspecified - Hyperreflexia 08/02/2011 - Hypertension - Hypoxia 11/14/2014 Desat study done 11/14/14: Home oxygen needed (2 L/min via n irene cannula with exertion and while sleeping). A face to face encounter was performed during this hospital admission regarding the need for o xygen. The patient verbalized understanding and consents to this therapy. - LVATS ODALIS Lobectomy 11/05/2014 74 year old never smoker who had a nodule identified on a screening scan in the past due to a family concern regarding asbaman tosis. The nodule slowly grew from 1.0 to 1.5 cm in about 6yrs. 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 On 11/10/14 , Dr. Villagomez performed video assisted left upper lobectomy. Ramirez drain removed POD 4, air l eak in CT Plan: -Chest tube to heimlich valve. Monitor air leak and daily yields. Discharge home with heimlich -Pain management -Out of bed, c ough, deep breathe, acapella, frequent ambulation. -Carb controlled diet . - Migraines 11/11/2014 - Orthostatic hypotension vasovagal syncope - Osteoporosis, unspecified - Snoring - Tendonitis of ankle, right 05/03/2011 - Type II or unspecified type diabetes mellitus without ment ion of complication, not stated as uncontrolled 02/07/2010 - Urge urinary incontinence 12/16/2013 - Variants of migraine, not elsewhere classified, without me ntion of intractable migraine without mention of status migrainosus PAST SURGICAL HISTORY Procedure Laterality Date - CATARACT SURGERY, COMPLEX 04/2010 right eye - COLONOSCOP W/ OR W/O BRSH SPEC 10/31/2007 Colonoscopy - EGD W/O BRSH SPECIMEN W/BX 11/01/09 - EGD W/O BRSH SPECIMEN W/BX 11/23/11 - EGD W/O OR W/BRUSH/WASH 08/09/2004 EGD - EGD W/O OR W/BRUSH/WASH 10/31/2007 EGD - EGD W/O OR W/BRUSH/WASH 11/28/13 EGD - EGD W/O OR W/BRUSH/WASH 10/08/2014 EGD - EGD W/O OR W/BRUSH/WASH 10/15/15 EGD - EGD W/O OR W/BRUSH/WASH 09/10/2017 EGD - LUNG SURGERY HX - PAST SURGICAL HISTORY OF rotator cuff - REMOVAL ADENOIDS,PRIMARY,<12 Y/O Adenoidectomy - REMOVAL OF LUNG,LOBECTOMY 11/09/2014 VATS left upper lobectomy - REMOVAL OF TONSILS,<12 Y/O Tonsillectomy FAMILY HISTORY Problem Relation Age of Onset - Heart Mother - Cancer Mother Mesothelioma - Cancer Father LUNG - Hypertension Maternal Grandfather - Osteoporosis Sister - Heart Brother congenital heart problems - Breast Cancer Sister Current Outpatient Medications Medication Sig Dispense Refill - insulin glargine (LANTUS SOLOSTAR U-100 INSULIN) 100 unit/ mL (3 mL) inpn Inject 24 Units subcutaneously daily at bedtime. 15 mL 3 - codeine-guaiFENesin (VIRTUSSIN AC) 10-100 mg/5 mL sy rup Take 5 mL by mouth three times daily as needed for Cough for up to 7 days. 120 mL 0 - blood sugar diagnostic (EASY TOUCH ABHIJIT T STRIP) test strip Check blood sugars 2x per day and as needed Dx: E11.9 insulin: yes 100 Strip 11 - pentosan (ELMIRON) 100 mg capsule Take 100 mg by mouth twi ce daily. - Fesoterodine (TOVIAZ) 8 mg Tb24 Take by mouth. - vit C/E/Zn/coppr/lutein/zeaxan (PRESERVISION AREDS-2 ORAL) Take by mouth twice daily. - Cholecalciferol, Vitamin D3, 1,000 unit cap Take 2 capsu les by mouth once daily. 0 - LORazepam (ATIVAN) 1 mg tablet TAKE 1/2 TO 1 TABLET BY M OUTH EVERY DAY NEEDED FOR FOR ANXIETY 30 tablet 2 - glimepiride (AMARYL) 2 mg tablet Take 1 tablet by mouth tw ice daily with meals. 180 tablet 1 - gabapentin (NEURONTIN) 300 mg capsule Take 1 capsule by mouth twice daily for 180 days. Morning and bedtime 180 capsule 1 - Insulin Troy, Disposable, (EASY CARROL ) 31 gauge x 3/16 ndle Use 1 needle for each dose. 2x daily 200 Each 3 - insulin aspart U-100 (NOVOLOG FLEXPEN U-100 INSULIN) 100 unit/mL (3 mL) inpn Inject 8 Units subcutaneously twice paola y with meals. Adjust as directed 5 Pen 11 - atorvastatin (LIPITOR) 10 mg tablet Take 1 tablet by ezio th once daily. 90 tablet 3 - SUMAtriptan (IMITREX) 50 mg tablet Take 1 tablet by mouth. at onset of headache. May take another tablet as needed one hour later. 10 tablet 5 - sertraline (ZOLOFT) 50 mg tablet Take 1 tablet by mouth once daily. 90 tablet 3 - albuterol HFA (PROVENTIL H FA, VENTOLIN HFA) 90 mcg/actuation inhaler Inhale 2 Puffs as instructed every 4 hours as nee ded. Use prior to exercise and bedtime for exercise induced or cough variant asthma (Bernabe ignacio not taking: Reported on 11/01/2018 ) 1 Inhaler 2 - oxybutynin ER (DITROPAN XL) 15 mg 24 hr Extended Rel Tab Take 1 tablet by mouth once daily. (Urology) (Patient not taking: Reported on 04/25/2019 ) 90 tablet 3 - metoprolol succinate ER (TOPROL XL) 200 mg 24 hr tablet Ta ke 1 tablet by mouth once daily. 90 tablet 3 - COMPOUNDED PRESCRIPTION Custom orthotics (E08.40, Z7 9.4) 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, with long-term current use of insulin 2 Each 0 - esomeprazole (NEXIUM) 40 mg capsule Take 1 capsule by mout h twice daily before meals. 180 capsule 3 - blood sugar diagnostic (ON ETOUCH ULTRA TEST) test strip Test blood sugar(s) 2 times daily. Dx: Type 2 DM - Controlled E11.9 Insulin: Yes 1 00 Strip 11 - Lancets (ONETOUCH ULTRASOFT LANCETS) lancets Test blood daigle gar(s) 2 times daily. Dx: Type 2 DM - Controlled E11.9 , Insulin: Yes 100 E ach 11 - Blood-Glucose Meter (ONETOUCH ULTRA2) monitoring kit 1 Each as needed. One Touch Meter Kit Diagnosis: Type 2 DM - Controlled E11.9 1 Ea ch 0 - capsaicin (ZOSTRIX) 0.025 % cream Appl y 3 application to affected area three times daily. 100 g 0 - Lancets (EASY TOUCH LANCETS) lancets 1 Each tw ice daily. DX: 250.00 insulin 100 Each 11 - multivitamins(DAILY MULTIVITAMIN TAB) Take one(1) tablet d aily. 0 No current facility-administered medications for this visit. SOCIAL HISTORY: Patient is . She has never smoked. She re ports her alcohol use as very rarely. PHYSICAL EXAMINATION: Blood pressure 124/74, pulse 76, weight 58.5 kg (129 lb). General Appearance: Well helen earing, alert, in no acute distress, well-hydrated, well nourished. Skin: Skin color, texture, turgor normal, no suspicious rash es or lesions. Head: Normocephalic, no masses, lesions or abnormalities. Eyes: Anicteric sclera. Oropharynx: Lips, mucosa, and tongue nor mal, teeth and gums normal, oropharynx normal. Neck: Supple, no adenopathy. Lungs: lungs clear to auscultation. No wheezing, rhonchi, ra les. Heart: RRR without murmur. Abdomen: Abdomen soft, non-t madie. Bowel sounds normal. No masses, organomegaly. Extremities: No deformities or edema. Neurologic: Gait normal. Sensation grossly intact. Impression: colorectal cancer screening 2)Abdiaziz's esophagus 3)GERD 4)functional bowel disorder Plan: The patient will continue current medications. She will be scheduled for an upper endoscopy as well as a colonoscopy. Preparati on for the procedures, using Miralax and Dulcolax as the laxati ve, have been explained in detail. The risks, benefits, anticipated outcomes and possible complicat ions were mentioned, including including failure to complete the endos copy and perforation. I explained the procedure i n understandable terms and the patient was given printed material concerning the planned proc edure. The patient had the opportunity to ask questions concern ing the planned procedure. The patient freely consents to the planned procedure. The patient reports that she feels comfortable a djusting her insulin while on the clear liquid diet/prep for the colonoscopy. The patient is encouraged to call with any questions or co ncerns, or should there be any change in health status between now and the scheduled procedure. I have personally interviewed and examined this patient. I h ave read the information that the MARCELL ferreira mented in this encounter. I spent 30 minutes in the visit, with more than 50% of the total uama-of-evdx time of the visit in counseling / coordination of care. Medhat Barrera RN CLIENT SUPPORT CONSULTANT.NEMESIO Barrera RN CLIENT SUPPORT CONSULTANT.NEMESIO 06/18/2019 9:34 AM Signed See if Nexium is on your mail order plan. Please follow the instructions for upper endoscopy and colonoscopy. You will be using Dulcolax and Miralax as laxatives during the prepar ation for the procedure. Your procedures will be with Dr. Lorenzo on September 15. The nurse will call you on September 12, with the sp ecifics as to arrival time. Adjust your insulin as you usually do. Reach out to Dr. Shannon carbajal with any questions in that regard. Referring Provider: ALICIA BLOUNT [[id number]] Allergies As of Date: 06/18/2019 Noted Allergy Reaction ADHESIVE TAPE (ROSINS) 08/31/2008 4 - Hives Comments: Rash around bandaid never been tested for latex al lergy BONIVA (IBANDRONATE) 12/04/2008 8 - GI Upset Comments: Esophageal burning CARAFATE (SUCRALFATE) 04/24/2012 14 - Other: See Comments Comments: feels poorly CIPROFLOXACIN 12/01/2013 14 - Other: See Comments Comments: photosensitivity, dermatitis CODEINE 08/24/2005 8 - GI Upset IBUPROFEN 03/22/2006 8 - GI Upset IODINE 08/25/2008 11 - Vomiting LANSOPRAZOLE 11/01/2011 6 - Diarrhea METFORMIN 05/10/2011 6 - Diarrhea NEOSPORIN (VVIEDEIP-IYUAPCBLSI-EY*08/31/2008 2 - Rash Comments: blisters PROTONIX (PANTOPRAZOLE) 01/13/2010 6 - Diarrhea RELAFEN (NABUMETONE) 03/22/2006 8 - GI Upset 11 - Vomiting ACTOS (PIOGLITAZONE HCL) 12/03/2016 7 - Swelling Date Reviewed: 06/18/2019 Reviewed by: Mackenzie Wang Ma - Fully Assessed Reason for Visit: Consult [502] Cmt: colonoscopy Primary Visit Diagnosis:Enco unter for screening for malignant neoplasm of colon [Z12.11] Other Visit Diagnoses: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] Gastroesophageal reflux disease with esophagitis [K21.0] Functional bowel disorder [K59.9] Order(s):esomeprazole (NEXIUM) 40 mg capsuleTake 1 cap jasbir by mouth DAILY (6 AM).Disp: 90 capsuleRfl: 3 EGD [4032600] Order #: [id number] FUTURE COLONOSCOPY SCRN NOT HIGH RISK [[id number]] Order #: [id number] FUTURE Prescriptions as of 06/18/2019 Sig: ESOMEPRAZOLE MAGNESIUM 40 MG * Take 1 capsule by mouth DAILY * INSULIN GLARGINE (U-100) 100 * Inject 24 Units subcutaneousl * CODEINE 10 MG-GUAIFENESIN 100* Take 5 mL by mouth three time * BLOOD SUGAR DIAGNOSTIC STRIPS Check blood sugars 2x per day* PENTOSAN POLYSULFATE SODIUM 1* Take 100 mg by mouth twice da * FESOTERODINE ER 8 MG TABLET,E* Take by mouth. PRESERVISION AREDS-2 ORAL Take by mouth twice daily. CHOLECALCIFEROL (VITAMIN D3) * Take 2 capsules by mouth once * LORAZEPAM 1 MG TABLET TAKE 1/2 TO 1 TABLET BY MOUTH* GLIMEPIRIDE 2 MG TABLET Take 1 tablet by mouth twice * GABAPENTIN 300 MG CAPSULE Take 1 capsule by mouth twice* PEN NEEDLE, DIABETIC 31 GAUGE* Use 1 needle for each dose. 2 * INSULIN ASPART (U-100) 100 UN* Inject 8 Units subcutaneously * ATORVASTATIN 10 MG TABLET Take 1 tablet by mouth once d* SUMATRIPTAN 50 MG TABLET Take 1 tablet by mouth. at on* SERTRALINE 50 MG TABLET Take 1 tablet by mouth once d* METOPROLOL SUCCINATE ER 200 M* Take 1 tablet by mouth once d * COMPOUNDED PRESCRIPTION Custom orthotics (E08.40, Z7* BLOOD SUGAR DIAGNOSTIC STRIPS Test blood sugar(s) 2 times d* LANCETS Test blood sugar(s) 2 times * BLOOD-GLUCOSE METER KIT 1 Each as needed. One Touch M* CAPSAICIN 0.025 % TOPICAL CRE* Apply 3 application to affect * LANCETS 1 Each twice daily. DX: 250.0* DAILY MULTIVITAMIN TABLET Take one(1) tablet daily. Problem List As Of Date 06/18/2019 Noted Resolved SPRAIN ROTATOR CUFF [S43.429A] INVALID FOR*03/03/2003 Complete rupture of rotator cuff [M75.120] INVALID FOR*08/15 OSTEOPOROSIS NOS [M81.0] INVALID FOR* ALLERGIC RHINITIS NOS [J30.9] INVALID FOR* GENERAL OSTEOARTHROSIS [M15.9] INVALID FOR* Restless legs syndrome (RLS) [G25.81] INVALID FOR* LUMBAR DISC DISPLACEMENT [M51.26] More... Enlargement of lymph nodes [R59.9] INVALID FOR*08/15/2016 INSOMNIA NOS [G47.00] INVALID FOR* LUNG NODULE [R22.2] INVALID FOR*04/30/2015 STRICKLAND'S ESOPHAGUS [K22.70] Acute gastritis without mention of hemorrhage [*INVALID FOR* 09/15/2016 Pure hypercholesterolemia [E78.00] INVALID FOR*11/11/2014 Diabetes 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 condition w*INVALID FOR* More... Anxiety [F41.9] INVALID FOR* More... Tendonitis of ankle, right [M77.51] INVALID FOR*08/15/2016 C. difficile diarrhea [A04.72] INVALID FOR*09/15/2016 Esophagitis, unspecified [K20.9] INVALID FOR* IBS (irritable bowel syndrome) [K58.9] INVALID FOR* More... Cataract [H26.9] INVALID FOR*09/15/2016 More... HTN (hypertension) [I10] INVALID FOR* More... Urge urinary incontinence [N39.41] INVALID FOR* Esophageal reflux [K21.9] INVALID FOR*10/08/2014 More... DVT prophylaxis [Z29.9] INVALID FOR*08/15/2016 More... DISPOSITION AND FOLLOW-UP [V999.01] INVALID FOR*08/15/2016 More... Migraines [G43.909] INVALID FOR* More... Hypoxia [R09.02] INVALID FOR*09/15/2016 More... Recurrent bronchospasm [J98.09] INVALID FOR* More... 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 Mouth dryness [R68.2] INVALID FOR* Hyperlipidemia [E78.5] INVALID FOR* Functional dyspepsia [K30] INVALID FOR* More... 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] INVALID FOR* More... Gastroesophageal reflux disease with esophagiti*INVALID FOR* More... 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 Please follow the instructions for upper endoscopy and colon oscopy. You will be using Dulcolax and Miralax as laxatives during the p reparation for the procedure. Your procedures will be with Dr. Lorenzo on September 15. The nurse will call you on September 12, with the sp ecifics as to arrival time. Adjust your insulin as you usually do. Reach out to Dr. Shannon carbajal with any questions in that regard. Prescriptions ordered this encounter Disp Refills Start End ESOMEPRAZOLE MAGNESIUM 40 MG CAPSULE* 90 c* 3 06/18/2019 Class: Print RX Route: ORAL Sig: Take 1 capsule by mouth DAILY (6 AM). Medications Discontinued During This Encounter albuterol HFA (PROVENTIL HFA, VENTOL* 1 In* 2 08/30/201806/18 Route: INHALATION Sig: Inhale 2 Puffs as instr ucted every 4 hours as needed. Use prior to exercise and bedtime for exercise induced or cough variant asthma Patient not taking: Reported on 11/01/2018 Disc: Course of therapy completed oxybutynin ER (DITROPAN XL) 15 mg 24* 90 t* 3 04/26/201806/18 Route: ORAL Sig: Take 1 tablet by mouth once daily. (Urology) Patient not taking: Reported on 04/25/2019 Disc: Course of therapy completed esomeprazole (NEXIUM) 40 mg capsule 180 * 3 09/25/2017 019 Class: Print RX Route: ORAL Sig: Take 1 capsule by mouth twice daily before meals. Disc: Cost of medication Encounter Status:Closed by MEDHAT BARRERA CNP on 06/18/19 obsolete on 2019-05 OBSOLETE Refill (INTMWS) Normal 05-24-2019 [facility] ANA IVORY ([id number]) 1940 [facility] Time Provider Department ([id number]) 05/24/19 ALICIA BLOUNT INTErisWS During your visit today, we recorded the following informati on about you: Sofy Mueller Pss 05/24/2019 9:32 AM Signed Patient has been identified by name and date of : Yes Last office visit in this department: 04/25/2019 RX INSTRUCTIONS: Patient aware RX will be sent to pharmacy. No need to notify patient. Patient phones requesting refills as follows: Pending Prescriptions Disp Refills INSULIN GLARGINE (U-100) 100 UNIT/ML (3 ML) SUBCUTANEOUS PEN 15 mL 3 Sig: Inject 24 Units subcutaneously daily at bedtime. ABRAM: No Please review and advise. Sofy Mueller Pss Allergies As of Date: 05/24/2019 Noted Allergy Reaction ADHESIVE TAPE (ROSINS) 08/31/2008 4 - Hives Comments: Rash around bandaid never been tested for latex al lergy BONIVA (IBANDRONATE) 12/04/2008 8 - GI Upset Comments: Esophageal burning CARAFATE (SUCRALFATE) 04/24/2012 14 - Other: See Comments Comments: feels poorly CIPROFLOXACIN 12/01/2013 14 - Other: See Comments Comments: photosensitivity, dermatitis CODEINE 08/24/2005 8 - GI Upset IBUPROFEN 03/22/2006 8 - GI Upset IODINE 08/25/2008 11 - Vomiting LANSOPRAZOLE 11/01/2011 6 - Diarrhea METFORMIN 05/10/2011 6 - Diarrhea NEOSPORIN (YDDJVTKE-XWWBSWIDZU-ER*08/31/2008 2 - Rash Comments: blisters PROTONIX (PANTOPRAZOLE) 01/13/2010 6 - Diarrhea RELAFEN (NABUMETONE) 03/22/2006 8 - GI Upset 11 - Vomiting ACTOS (PIOGLITAZONE HCL) 12/03/2016 7 - Swelling Date Reviewed: 04/25/2019 Reviewed by: Yulisa Bills LPN - Fully Assessed Reason for Visit: Refill Request [94] Order(s):insulin glargine (LANTUS SOLOSTAR U-100 INSUL IN) 100 unit/mL (3 mL) inpnInject 24 Units subcutaneously daily at bedtime.Disp: 15 mLRfl: 3 Prescriptions as of 05/24/2019 Sig: INSULIN GLARGINE (U-100) 100 * Inject 24 Units subcutaneousl * CODEINE 10 MG-GUAIFENESIN 100* Take 5 mL by mouth three time * BLOOD SUGAR DIAGNOSTIC STRIPS Check blood sugars 2x per day* PENTOSAN POLYSULFATE SODIUM 1* Take 100 mg by mouth twice da * FESOTERODINE ER 8 MG TABLET,E* Take by mouth. PRESERVISION AREDS-2 ORAL Take by mouth twice daily. CHOLECALCIFEROL (VITAMIN D3) * Take 2 capsules by mouth once * LORAZEPAM 1 MG TABLET TAKE 1/2 TO 1 TABLET BY MOUTH* GLIMEPIRIDE 2 MG TABLET Take 1 tablet by mouth twice * GABAPENTIN 300 MG CAPSULE Take 1 capsule by mouth twice* PEN NEEDLE, DIABETIC 31 GAUGE* Use 1 needle for each dose. 2 * INSULIN ASPART (U-100) 100 UN* Inject 8 Units subcutaneously * ATORVASTATIN 10 MG TABLET Take 1 tablet by mouth once d* SUMATRIPTAN 50 MG TABLET Take 1 tablet by mouth. at on* SERTRALINE 50 MG TABLET Take 1 tablet by mouth once d* ALBUTEROL SULFATE HFA 90 MCG/* Inhale 2 Puffs as instructed * Patient not taking: Reported on 11/01/2018 OXYBUTYNIN CHLORIDE ER 15 MG * Take 1 tablet by mouth once d * Patient not taking: Reported on 04/25/2019 METOPROLOL SUCCINATE ER 200 M* Take 1 tablet by mouth once d * COMPOUNDED PRESCRIPTION Custom orthotics (E08.40, Z7* ESOMEPRAZOLE MAGNESIUM 40 MG * Take 1 capsule by mouth twice * BLOOD SUGAR DIAGNOSTIC STRIPS Test blood sugar(s) 2 times d* LANCETS Test blood sugar(s) 2 times * BLOOD-GLUCOSE METER KIT 1 Each as needed. One Touch M* CAPSAICIN 0.025 % TOPICAL CRE* Apply 3 application to affect * LANCETS 1 Each twice daily. DX: 250.0* DAILY MULTIVITAMIN TABLET Take one(1) tablet daily. Problem List As Of Date 05/24/2019 Noted Resolved SPRAIN ROTATOR CUFF [S43.429A] INVALID FOR*03/03/2003 Complete rupture of rotator cuff [M75.120] INVALID FOR*08/15 OSTEOPOROSIS NOS [M81.0] INVALID FOR* ALLERGIC RHINITIS NOS [J30.9] INVALID FOR* GENERAL OSTEOARTHROSIS [M15.9] INVALID FOR* Restless legs syndrome (RLS) [G25.81] INVALID FOR* LUMBAR DISC DISPLACEMENT [M51.26] More... Enlargement of lymph nodes [R59.9] INVALID FOR*08/15/2016 INSOMNIA NOS [G47.00] INVALID FOR* LUNG NODULE [R22.2] INVALID FOR*04/30/2015 STRICKLAND'S ESOPHAGUS [K22.70] Acute gastritis without mention of hemorrhage [*INVALID FOR* 09/15/2016 Pure hypercholesterolemia [E78.00] INVALID FOR*11/11/2014 Diabetes 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 condition w*INVALID FOR* More... Anxiety [F41.9] INVALID FOR* More... Tendonitis of ankle, right [M77.51] INVALID FOR*08/15/2016 C. difficile diarrhea [A04.72] INVALID FOR*09/15/2016 Esophagitis, unspecified [K20.9] INVALID FOR* IBS (irritable bowel syndrome) [K58.9] INVALID FOR* More... Cataract [H26.9] INVALID FOR*09/15/2016 More... HTN (hypertension) [I10] INVALID FOR* More... Urge urinary incontinence [N39.41] INVALID FOR* Esophageal reflux [K21.9] INVALID FOR*10/08/2014 More... DVT prophylaxis [Z29.9] INVALID FOR*08/15/2016 More... DISPOSITION AND FOLLOW-UP [V999.01] INVALID FOR*08/15/2016 More... Migraines [G43.909] INVALID FOR* More... Hypoxia [R09.02] INVALID FOR*09/15/2016 More... Recurrent bronchospasm [J98.09] INVALID FOR* More... 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 Mouth dryness [R68.2] INVALID FOR* Hyperlipidemia [E78.5] INVALID FOR* Functional dyspepsia [K30] INVALID FOR* More... 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] INVALID FOR* More... Gastroesophageal reflux disease with esophagiti*INVALID FOR* More... 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 Medications Discontinued During This Encounter insulin glargine (LANTUS SOLOSTAR U-* 15 mL 3 09/06/201805/13 Route: SUBCUTANEOUS Sig: Inject 24 Units subcutaneously daily at bedtime. Disc: Reason for discontinue is not on file. Encounter Status:Closed by CLARENCE LEVINE on 05/26/19 obsolete on 2019-04 OBSOLETE Refill (INTMWS) Normal 05-08-2019 [facility] ANA IVORY ([id number]) 1940 [facility] Date Time Provider Department ([id number]) 05/08/19 ALICIA BLOUNT INTMWS During your visit today, we recorded the following informati on about you: Libertad Burdick [facility] 05/08/2019 4:11 PM Signed Patient has been identified by name and date of : Yes Pending Prescriptions Disp Refills BLOOD SUGAR DIAGNOSTIC STRIPS 100 Strip 11 Sig: Check blood sugars 2x per day Dx: E11.9 insulin ABRAM: No CODEINE 10 MG-GUAIFENESIN 100 MG/5 ML ORAL LIQUID 120 mL 0 Sig: Take 5 mL by mouth three times daily as needed for Coug h for up to 30 days. BULL Class: C-V ABRAM: No RX INSTRUCTIONS: Patient stated she needs the test strips se nt because the pharmacy asked her why our office has not been s ending the prescription since diabetic supplies are covered by her insurance. She do es not need lancets at this time. Patient aware RX will be sent to pharmacy. No need to notify patient. Controlled medication - must be called in. Libertad Muro LPN 05/08/2019 4:19 PM Signed Patient has been identified by name and date of : Yes Patient phones for refill(s): Pending Prescriptions Disp Refills BLOOD SUGAR DIAGNOSTIC STRIPS 100 Strip 11 Sig: Check blood sugars 2x per day Dx: E11.9 insulin ABRAM: No CODEINE 10 MG-GUAIFENESIN 100 MG/5 ML ORAL LIQUID 120 mL 0 Sig: Take 5 mL by mouth three times daily as needed for Coug h for up to 30 days. BULL Class: C-V ABRAM: No Date of last office visit in primary care: 04/25/2019 3 month follow-up scheduled w/PCP: 08/08/2019 Juana Blount MD 05/08/2019 6:44 PM Signed Patient's request for medication is as follows: Signed Prescriptions Disp Refills blood sugar diagnostic (EASY TOUCH TEST STRIP) test strip 10 0 Strip 11 Sig: Check blood sugars 2x per day and as needed Dx: E11.9 i nsulin: yes ABRAM: No Authorizing Provider: ALICIA BLOUNT codeine-guaiFENesin (VIRTUSSIN AC) 10-100 mg/5 mL syrup 120 mL 0 Sig: Take 5 mL by mouth three times daily as needed for Coug h for up to 30 days. BULL Class: C-V ABRAM: No Authorizing Provider: ALICIA BLOUNT Prescription(s) printed or escripted as above. Please proces s accordingly. Cintia Macias LPN 05/09/2019 10:11 AM Signed Rx for cough syrup faxed to [facility]. Joana escripted. Allergies As of Date: 05/08/2019 Noted Allergy Reaction ADHESIVE TAPE (ROSINS) 08/31/2008 4 - Hives Comments: Rash around bandaid never been tested for latex al lergy BONIVA (IBANDRONATE) 12/04/2008 8 - GI Upset Comments: Esophageal burning CARAFATE (SUCRALFATE) 04/24/2012 14 - Other: See Comments Comments: feels poorly CIPROFLOXACIN 12/01/2013 14 - Other: See Comments Comments: photosensitivity, dermatitis CODEINE 08/24/2005 8 - GI Upset IBUPROFEN 03/22/2006 8 - GI Upset IODINE 08/25/2008 11 - Vomiting LANSOPRAZOLE 11/01/2011 6 - Diarrhea METFORMIN 05/10/2011 6 - Diarrhea NEOSPORIN ([id number]*08/31/2008 2 - Rash Comments: blisters PROTONIX (PANTOPRAZOLE) 01/13/2010 6 - Diarrhea RELAFEN (NABUMETONE) 03/22/2006 8 - GI Upset 11 - Vomiting ACTOS (PIOGLITAZONE HCL) 12/03/2016 7 - Swelling Date Reviewed: 04/25/2019 Reviewed by: Yulisa Bills LPN - Fully Assessed Reason for Visit: Refill Request [94] Visit Diagnoses: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, with long-term current use of insulin ([facility]) [E08.40, Z79.4] Chronic cough [R05] Comment:2014 PFT showed moderate obstruction after surgery Order(s):blood sugar diagnostic (EASY TOUCH TEST STRIP) test stripCheck blood sugars 2x per day and as needed Dx: E11.9 insulin: yesDisp: 100 StripRfl: 11 codeine-guaiFENesin (VIRTUSSIN AC) 10-100 mg/5 mL syrupTake 5 mL by mouth three times daily as needed for Cough for up to 30 day s.Disp: 120 mLRfl: 0 Prescriptions as of 05/08/2019 Sig: BLOOD SUGAR DIAGNOSTIC STRIPS Check blood sugars 2x per day* CODEINE 10 MG-GUAIFENESIN 100* Take 5 mL by mouth three time * PENTOSAN POLYSULFATE SODIUM 1* Take 100 mg by mouth twice da * FESOTERODINE ER 8 MG TABLET,E* Take by mouth. PRESERVISION AREDS-2 ORAL Take by mouth twice daily. CHOLECALCIFEROL (VITAMIN D3) * Take 2 capsules by mouth once * LORAZEPAM 1 MG TABLET TAKE 1/2 TO 1 TABLET BY MOUTH* GLIMEPIRIDE 2 MG TABLET Take 1 tablet by mouth twice * GABAPENTIN 300 MG CAPSULE Take 1 capsule by mouth twice* PEN NEEDLE, DIABETIC 31 GAUGE* Use 1 needle for each dose. 2 * INSULIN ASPART (U-100) 100 UN* Inject 8 Units subcutaneously * ATORVASTATIN 10 MG TABLET Take 1 tablet by mouth once d* SUMATRIPTAN 50 MG TABLET Take 1 tablet by mouth. at on* SERTRALINE 50 MG TABLET Take 1 tablet by mouth once d* INSULIN GLARGINE (U-100) 100 * Inject 24 Units subcutaneousl * ALBUTEROL SULFATE HFA 90 MCG/* Inhale 2 Puffs as instructed * Patient not taking: Reported on 11/01/2018 OXYBUTYNIN CHLORIDE ER 15 MG * Take 1 tablet by mouth once d * Patient not taking: Reported on 04/25/2019 METOPROLOL SUCCINATE ER 200 M* Take 1 tablet by mouth once d * COMPOUNDED PRESCRIPTION Custom orthotics (E08.40, Z7* ESOMEPRAZOLE MAGNESIUM 40 MG * Take 1 capsule by mouth twice * BLOOD SUGAR DIAGNOSTIC STRIPS Test blood sugar(s) 2 times d* LANCETS Test blood sugar(s) 2 times * BLOOD-GLUCOSE METER KIT 1 Each as needed. One Touch M* CAPSAICIN 0.025 % TOPICAL CRE* Apply 3 application to affect * LANCETS 1 Each twice daily. DX: 250.0* DAILY MULTIVITAMIN TABLET Take one(1) tablet daily. Problem List As Of Date 05/08/2019 Noted Resolved SPRAIN ROTATOR CUFF [S43.429A] INVALID FOR*03/03/2003 Complete rupture of rotator cuff [M75.120] INVALID FOR*08/15 OSTEOPOROSIS NOS [M81.0] INVALID FOR* ALLERGIC RHINITIS NOS [J30.9] INVALID FOR* GENERAL OSTEOARTHROSIS [M15.9] INVALID FOR* Restless legs syndrome (RLS) [G25.81] INVALID FOR* LUMBAR DISC DISPLACEMENT [M51.26] More... Enlargement of lymph nodes [R59.9] INVALID FOR*08/15/2016 INSOMNIA NOS [G47.00] INVALID FOR* LUNG NODULE [R22.2] INVALID FOR*04/30/2015 STRICKLAND'S ESOPHAGUS [K22.70] Acute gastritis without mention of hemorrhage [*INVALID FOR* 09/15/2016 Pure hypercholesterolemia [E78.00] INVALID FOR*11/11/2014 Diabetes 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 condition w*INVALID FOR* More... Anxiety [F41.9] INVALID FOR* More... Tendonitis of ankle, right [M77.9] INVALID FOR*08/15/2016 C. difficile diarrhea [A04.72] INVALID FOR*09/15/2016 Esophagitis, unspecified [K20.9] INVALID FOR* IBS (irritable bowel syndrome) [K58.9] INVALID FOR* More... Cataract [H26.9] INVALID FOR*09/15/2016 More... HTN (hypertension) [I10] INVALID FOR* More... Urge urinary incontinence [N39.41] INVALID FOR* Esophageal reflux [K21.9] INVALID FOR*10/08/2014 More... DVT prophylaxis [Z29.9] INVALID FOR*08/15/2016 More... DISPOSITION AND FOLLOW-UP [V999.01] INVALID FOR*08/15/2016 More... Migraines [G43.909] INVALID FOR* More... Hypoxia [R09.02] INVALID FOR*09/15/2016 More... Recurrent bronchospasm [J98.09] INVALID FOR* More... 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 Mouth dryness [R68.2] INVALID FOR* Hyperlipidemia [E78.5] INVALID FOR* Functional dyspepsia [K30] INVALID FOR* More... 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] INVALID FOR* More... Gastroesophageal reflux disease with esophagiti*INVALID FOR* More... 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 Medications Discontinued During This Encounter blood sugar diagnostic (EASY TOUCH T* 100 * 11 05/22/2017 Sig: Check blood sugars 2x per day Dx: E11.9 insulin Disc: Reason for discontinue is not on file. codeine-guaiFENesin (VIRTUSSIN AC) 1* 120 * 0 08/30/201805/08 Class: Print RX Route: ORAL Sig: Take 5 mL by mouth thre e times daily as needed for Cough for up to 30 days. Disc: Reason for discontinue is not on file. Encounter Status:Closed by CINTIA MACIAS LPN on 05/09/19 Vital Signs Vital Sign Description Value / Unit Date Location The following section is limited to 5 en tries per type and includes entries from the following time range: 20200426 - 20200413 4. Body weight 59.42 kg 04-26-2020 [facility] ([id number]) BP Diastolic 60 mm[Hg] 04-26-2020 [facility] ([id number]) BP Systolic 124 mm[Hg] 04-26-2020 [facility] ([id number]) Pulse (Heart Rate) 64 /min 04-26-2020 [facility] (28045) Respiratory Rate 16 /min 04-26-2020 [facility] ([id number]) Encounters Date Type Reason Provider Location 03-26-2020 - Documentation External [facility] 03-26-2020 procedure Provider 03-26-2020 External External External-[facility] Correspondence Provider 04-26-2020 - Patient encounter Acute posttraumatic Ct [facility] Cat Scan 04-26-2020 procedure headache (I-Stat) Comment: Radiology CT 04-26-2020 - Patient encounter Acute posttraumatic Clarence (Brownell Operator) Int ernal 04-26-2020 procedure headache [facility] [place] Comment: Acute post-traumatic headach e, not intractable (Primary Dx); Facial pain; Blurry vision, left eye 04-13-2020 - Refill Secondary diabetes [facility]ia [facility] 04-13-2020 mellitus Comment: Refill Request 04-27-2020 - 04-27-2020 Telephone encounter Clarence (Brownell Operator ) [facility] Comment: Results (CT) 04-26-2020 - 04-26-2020 Telephone encounter Fall Alicia [facility] [place] Comment: Fall Procedures Procedure Name Date Provider Location Ct head/brain w/o 04-26-2020 Clarence ([facility]) [facility] contrast material ([id number]) Colonoscopy 09-15-2019 - [facility] 09-15-2019 ([id number]) Plan of Treatment Plan Description Date Location COLONOSCOPY COLONOSCOPY 09-15-2029 - [facility] 09-15-2029 ([id number]) COLORECTAL CANCER COLORECTAL CANCER 09-15-2029 [facility] SCREENING,SEE MODIFIER SCREENING,SEE MODIFIER ([id number] [phone]) ANNUAL PCP TEAM CHRONIC ANNUAL PCP TEAM CHRONIC 04-26-2021 - [facility] DISEASE VISIT DISEASE VISIT 04-26-2021 ([id number]) BP CONTROLLED (<130/80) BP CONTROLLED (<130/80) 04-26-2021 - [facility] 04-26-2021 ([id number]) DILATED RETINAL EXAM DILATED RETINAL EXAM 04-01-2021 - [facility] 04-01-2021 ([id number]) ANNUAL PCP TEAM CHRONIC ANNUAL PCP TEAM CHRONIC 01-26-2021 - [facility] DISEASE VISIT DISEASE VISIT 01-26-2021 ([id number]) URINE ALBUMIN:CREATININE URINE ALBUMIN:CREATININE 01-21-2021 - [facility] RATIO RATIO 01-21-2021 ([id number]) DIABETIC FOOT EXAM DIABETIC FOOT EXAM 10-23-2020 - [facility] 10-23-2020 ([id number]) SHINGRIX VACCINE (2 of SHINGRIX VACCINE (2 of 10-23-2020 - [facility] 3) 3) 10-23-2020 ([id number]) Comment: Postponed from 03/04/2008 (D eclined at this time) LDL CHOLESTEROL LDL CHOLESTEROL 10-19-2020 - [facility] 10-19-2020 ([id number]) DTAP,TDAP,TD (2 - Td) DTAP,TDAP,TD (2 - Td) 08-08-2020 - [facility] 08-08-2020 ([id number]) Comment: Postponed from 03/22/2016 (D eclined at this time) HBA1C HBA1C 07-23-2020 - [facility] 07-23-2020 ([id number]) BP CONTROLLED BP CONTROLLED 04-25-2020 - [facility] (<130/80) (<130/80) 04-25-2020 ([id number]) INFLUENZA (#1) INFLUENZA (#1) 2020 [facility] ([id number]) DILATED RETINAL EXAM DILATED RETINAL EXAM 03-05-2020 [facility] ([id number]) ADVANCE DIRECTIVE ADVANCE DIRECTIVE 09-25-2013 - [facility] DISCUSSION DISCUSSION 09-25-2013 ([id number]) HEPATITIS C SCREENING HEPATITIS C SCREENING 1960 - [facility] 1960 ([id number]) no information [facility] ([id number]) Immunizations Vaccine Notes Status Date Location Influenza Vaccine, influenza virus (completed) 05-17-2013 - [facility] vaccine, unspecified 05-17-2013 (4419 5) formulation Influenza Vaccine, influenza virus (completed) 05-18-2012 - [facility] vaccine, unspecified 05-18-2012 (4419 5) formulation Influenza Vaccine, influenza virus (completed) 06-03-2011 - [facility] vaccine, unspecified 06-03-2011 (4419 5) formulation Influenza Vaccine, influenza virus (completed) 05-03-2010 - [facility] vaccine, unspecified 05-03-2010 (4419 5) formulation Influenza Vaccine, influenza virus (completed) 05-20-2009 - [facility] vaccine, unspecified 05-20-2009 (4419 5) formulation Influenza Vaccine, influenza virus (completed) 05-13-2009 - [facility] vaccine, unspecified 05-13-2009 (4419 5) formulation Influenza Vaccine, influenza virus (completed) 06-08-2008 - [facility] vaccine, unspecified 06-08-2008 (4419 5) formulation Influenza Vaccine, influenza virus (completed) 06-06-2007 - [facility] vaccine, unspecified 06-06-2007 (4419 5) formulation Influenza Vaccine, influenza virus (completed) 06-19-2006 - [facility] vaccine, unspecified 06-19-2006 (4419 5) formulation Influenza Vaccine, influenza virus (completed) 06-08-2005 - [facility] vaccine, unspecified 06-08-2005 (4419 5) formulation Influenza Seasonal influenza, high dose (completed) 04-25-2019 - [facility] - High Dose - Age seasonal, 04-25-2019 (71002) 65+ preservative-free Influenza Seasonal influenza, high dose (completed) 04-20-2018 - [facility] - High Dose - Age seasonal, 04-20-2018 (71412) 65+ preservative-free Influenza Seasonal influenza, high dose (completed) 05-17-2017 - [facility] - High Dose - Age seasonal, 05-17-2017 (15448) 65+ preservative-free Influenza Seasonal influenza, high dose (completed) 05-11-2016 - [facility] - High Dose - Age seasonal, 05-11-2016 (17035) 65+ preservative-free Influenza Seasonal influenza, high dose (completed) 05-12-2015 - [facility] - High Dose - Age seasonal, 05-12-2015 (05790) 65+ preservative-free Influenza Seasonal influenza, seasonal, (completed) 04-15-2020 - [facility] Inj Age 3+ injectable 04-15-2020 ([id number]) Influenza Seasonal influenza, seasonal, (completed) 05-13-2014 - [facility] Inj Age 3+ injectable 05-13-2014 (54043) Pneumococcal-13 Vac pneumococcal conjugate (completed) 09-07-2014 - [facility] Conjugate vaccine, 13 valent 09-07-2014 ([id number]) Pneumovax pneumococcal (completed) 09-05-2007 - [facility] polysaccharide vaccine, 09-05-2007 (441 95) 23 valent Tdap (Age 7+) tetanus toxoid, reduced (completed) 03-22-2006 - [facility] diphtheria toxoid, and 03-22-2006 (4419 5) acellular pertussis vaccine, adsorbed Zostavax zoster vaccine, live (completed) 01-08-2008 - [facility] 01-08-2008 ([id number]) Payers Payer Name Policy Number Location [employer]MA[employer] [id number] [facility] (44 195) MEDICARE [id number] [facility] (44 195) The following information is from the original human readable contentNo Payer Records Found Social History Type Social History Date Location Description Tobacco smoking status Never smoker 01-08-2020 - [facility] NHIS 04-26-2020 ([id number]) Tobacco use and Never used 01-08-2020 [facility] exposure 04-26-2020 ([id number]) Alcohol intake Current drinker of 01-08-2020 [facility] alcohol (finding) 04-26-2020 (75744) Alcohol Comment 2-3 drinks/years 10-07-2014 - [facility] 10-07-2014 (24477) Sex Assigned At Not on file [facility] (93110) Exposure to SARS-CoV-2 Not sure [facility] (event) (96019) The following information is from the original human readable contentNo Social History Records Found Medical Equipment Equipment Code (if Equipment Original Equipment Procedure Code ( if Dates provided) Text (if provided) Identifier (if provided) provided) Test blood sugar(s) 05-23-20 17 2 times daily. Dx: Type 2 DM - Controlled E11.9 Insulin: Yes Check blood sugars 9 2x per day and as needed Dx: E11.9 insulin: yes Use 1 needle for 02-03-2019 each dose. 2x daily 1 Each twice daily. 07-15-20 14 DX: 250.00 insulin Test blood sugar(s) 05-23-20 17 2 times daily. Dx: Type 2 DM - Controlled E11.9 , Insulin: Yes Micro-lancets to 01-27-2020 work with current meter - One touch. Sig: Test blood sugar(s) 2 times daily. Dx: Type 2 DM - Controlled E11.9 , Insulin: Yes Check blood sugars 9 2x per day and as needed Dx: E11.9 insulin: yes Test blood sugar(s) 05-23-20 17 2 times daily. Dx: Type 2 DM - Controlled E11.9 Insulin: Yes Use 1 needle for 04-02-2020 each dose. 4x daily 1 Each twice daily. 07-15-20 14 DX: 250.00 insulin Test blood sugar(s) 05-23-20 17 2 times daily. Dx: Type 2 DM - Controlled E11.9 , Insulin: Yes Micro-lancets to 01-27-2020 work with current meter - One touch. Sig: Test blood sugar(s) 2 times daily. Dx: Type 2 DM - Controlled E11.9 , Insulin: Yes Check blood sugars 9 2x per day and as needed Dx: E11.9 insulin: yes Test blood sugar(s) 05-23-20 17 2 times daily. Dx: Type 2 DM - Controlled E11.9 Insulin: Yes Use 1 needle for 04-02-2020 each dose. 4x daily 1 Each twice daily. 07-15-20 14 DX: 250.00 insulin Test blood sugar(s) 05-23-20 17 2 times daily. Dx: Type 2 DM - Controlled E11.9 , Insulin: Yes Micro-lancets to 01-27-2020 work with current meter - One touch. Sig: Test blood sugar(s) 2 times daily. Dx: Type 2 DM - Controlled E11.9 , Insulin: Yes Check blood sugars 9 2x per day and as needed Dx: E11.9 insulin: yes Test blood sugar(s) 05-23-20 17 2 times daily. Dx: Type 2 DM - Controlled E11.9 Insulin: Yes Use 1 needle for 04-02-2020 each dose. 4x daily 1 Each twice daily. 07-15-20 14 DX: 250.00 insulin Test blood sugar(s) 05-23-20 17 2 times daily. Dx: Type 2 DM - Controlled E11.9 , Insulin: Yes Micro-lancets to 01-27-2020 work with current meter - One touch. Sig: Test blood sugar(s) 2 times daily. Dx: Type 2 DM - Controlled E11.9 , Insulin: Yes Check blood sugars 9 2x per day and as needed Dx: E11.9 insulin: yes Test blood sugar(s) 05-23-20 17 2 times daily. Dx: Type 2 DM - Controlled E11.9 Insulin: Yes Use 1 needle for 04-02-2020 each dose. 4x daily 1 Each twice daily. 07-15-20 DX: 250.00 insulin Test blood sugar(s) 05-23-20 17 2 times daily. Dx: Type 2 DM - Controlled E11.9 , Insulin: Yes Micro-lancets to 01-27-2020 work with current meter - One touch. Sig: Test blood sugar(s) 2 times daily. Dx: Type 2 DM - Controlled E11.9 , Insulin: Yes Check blood sugars 9 2x per day and as needed Dx: E11.9 insulin: yes Test blood sugar(s) 05-23-20 17 2 times daily. Dx: Type 2 DM - Controlled E11.9 Insulin: Yes Use 1 needle for 04-02-2020 each dose. 4x daily 1 Each twice daily. 07-15-20 14 DX: 250.00 insulin Test blood sugar(s) 05-23-20 17 2 times daily. Dx: Type 2 DM - Controlled E11.9 , Insulin: Yes Micro-lancets to 01-27-2020 work with current meter - One touch. Sig: Test blood sugar(s) 2 times daily. Dx: Type 2 DM - Controlled E11.9 , Insulin: Yes History of Past Illness Problem Noted Date Resolved Date Hypoxia 11/14/2014 09/15/2016 Overview: Desat study done 11/14/14: Home oxygen needed (2 L/min via nasal cannula with exertion and while sleeping). A face to face encounter was performed during this hospital admission regarding the need for oxy gen. The patient verbalized understandin g and consents to this therapy. DVT prophylaxis 11/11/2014 08/15/2016 Overview: The pt is on Lovenox 40mg daily SC and SCD for VTE prophylaxis. No signs or symptoms of DVT/PE. The patient is at high risk for VTE. Plan: - Continue Lovenox 40mg daily SC - SCD/AMANDO - Encourage continued ambulation . DISPOSITION AND FOLLOW-UP 11/11/2014 08/15/2016 Overview: Ana Ivory is and lives in [place], [place]. At this time, we anticipate that the patient will be discharged home once clinically stable. Plan: - Discuss needs with patient. - Collaborate with Case management to fa cilitate DC process - Will continue to evaluate during the p ost op period. - Desat study 11/14/14: patient will need home oxygen (2 L with exertion only) - Discharge home today with home care fo r assistance with chest tube to [facility]. Return to OPD on Sunday11/18/[address] removal . Esophageal reflux 10/08/2014 10/08/2014 Cataract 04/17/2013 09/15/2016 Overview: [facility], Dr. Dada johnson Mild cataract in L eye- no need for cataract surgery at this time. Continue to follow up the cataract. C. difficile diarrhea 10/18/2011 09/15/2016 Tendonitis of ankle, right 05/03/2011 08/15/2016 Pure hypercholesterolemia 12/14/2009 11/11/2014 Acute gastritis without mention of hemorrhage 10/31/2007 09/15/2016 LUNG NODULE 09/05/2007 04/30/2015 Enlargement of lymph nodes 12/20/2006 08/15/2016 Complete rupture of rotator cuff 03/03/2003 017 Rotator cuff (capsule) sprain 01/10/2003 03/03/2003 Problem Noted Date Resolved Date Hypoxia 11/14/2014 09/15/2016 Overview: Desat study done 11/14/14: Home oxygen needed (2 L/min via nasal cannula with exertion and while sleeping). A face to face encounter was performed during this hospital admission regarding the need for oxy gen. The patient verbalized abe rutherford and consents to this therapy. DVT prophylaxis 11/11/2014 08/15/2016 Overview: The pt is on Lovenox 40mg daily SC and SCD for VTE prophylaxis. No signs or symptoms of DVT/PE. The patient is at high risk for VTE. Plan: - Continue Lovenox 40mg daily SC - SCD/AMANDO - Encourage continued ambulation . DISPOSITION AND FOLLOW-UP 11/11/2014 08/15/2016 Overview: Ana Ivory is and lives in [place], [place]. At this time, we anticipate that the patient will be discharged home once clinically stable. Plan: - Discuss needs with patient. - Collaborate with Case management to fa cilitate DC process - Will continue to evaluate during the p ost op period. - Desat study 11/14/14: patient will need home oxygen (2 L with exertion only) - Discharge home today with home care fo r assistance with chest tube to [facility]. Return to OPD on Sunday11/18/[address] removal . Esophageal reflux 10/08/2014 10/08/2014 Cataract 04/17/2013 09/15/2016 Overview: [facility], Dr. Dada johnson Mild cataract in L eye- no need for cataract surgery at this time. Continue to follow up the cataract. C. difficile diarrhea 10/18/2011 09/15/2016 Tendonitis of ankle, right 05/03/2011 08/15/2016 Pure hypercholesterolemia 12/14/2009 11/11/2014 Acute gastritis without mention of hemorrhage 10/31/2007 09/15/2016 LUNG NODULE 09/05/2007 04/30/2015 Enlargement of lymph nodes 12/20/2006 08/15/2016 Complete rupture of rotator cuff 03/03/2003 017 Rotator cuff (capsule) sprain 01/10/2003 03/03/2003 Problem Noted Date Resolved Date Hypoxia 11/14/2014 09/15/2016 Overview: Desat study done 11/14/14: Home oxygen needed (2 L/min via nasal cannula with exertion and while sleeping). A face to face encounter was performed during this hospital admission regarding the need for oxy gen. The patient verbalized abe rutherford and consents to this therapy. DVT prophylaxis 11/11/2014 08/15/2016 Overview: The pt is on Lovenox 40mg daily SC and SCD for VTE prophylaxis. No signs or symptoms of DVT/PE. The patient is at high risk for VTE. Plan: - Continue Lovenox 40mg daily SC - SCD/AMANDO - Encourage continued ambulation . DISPOSITION AND FOLLOW-UP 11/11/2014 08/15/2016 Overview: Ana Ivory is and lives in [place], [place]. At this time, we anticipate that the patient will be discharged home once clinically stable. Plan: - Discuss needs with patient. - Collaborate with Case management to fa cilitate DC process - Will continue to evaluate during the p ost op period. - Desat study 11/14/14: patient will need home oxygen (2 L with exertion only) - Discharge home today with home care fo r assistance with chest tube to [facility]. Return to OPD on Sunday11/18/[address] removal . Esophageal reflux 10/08/2014 10/08/2014 Cataract 04/17/2013 09/15/2016 Overview: [facility], Dr. Dada johnson Mild cataract in L eye- no need for cataract surgery at this time. Continue to follow up the cataract. C. difficile diarrhea 10/18/2011 09/15/2016 Tendonitis of ankle, right 05/03/2011 08/15/2016 Pure hypercholesterolemia 12/14/2009 11/11/2014 Acute gastritis without mention of hemorrhage 10/31/2007 09/15/2016 LUNG NODULE 09/05/2007 04/30/2015 Enlargement of lymph nodes 12/20/2006 08/15/2016 Complete rupture of rotator cuff 03/03/2003 017 Rotator cuff (capsule) sprain 01/10/2003 03/03/2003 Problem Noted Date Resolved Date Hypoxia 11/14/2014 09/15/2016 Overview: Desat study done 11/14/14: Home oxygen needed (2 L/min via nasal cannula with exertion and while sleeping). A face to face encounter was performed during this hospital admission regarding the need for oxy gen. The patient verbalized abe g and consents to this therapy. DVT prophylaxis 11/11/2014 08/15/2016 Overview: The pt is on Lovenox 40mg daily SC and SCD for VTE prophylaxis. No signs or symptoms of DVT/PE. The patient is at high risk for VTE. Plan: - Continue Lovenox 40mg daily SC - SCD/AMANDO - Encourage continued ambulation . DISPOSITION AND FOLLOW-UP 11/11/2014 08/15/2016 Overview: Ana Ivory is and lives in [place], [place]. At this time, we anticipate that the patient will be discharged home once clinically stable. Plan: - Discuss needs with patient. - Collaborate with Case management to fa cilitate DC process - Will continue to evaluate during the p ost op period. - Desat study 11/14/14: patient will need home oxygen (2 L with exertion only) - Discharge home today with home care fo r assistance with chest tube to [facility]. Return to [facility] on Sunday11/18/[address] removal . Esophageal reflux 10/08/2014 10/08/2014 Cataract 04/17/2013 09/15/2016 Overview: [facility], Dr. Dada johnson Mild cataract in L eye- no need for cataract surgery at this time. Continue to follow up the cataract. C. 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 Advance Directive(s) 09/27/2006 12:00 AM Advance Directive(s) 05/05/2008 12:00 AM Advance Directive(s) 09/25/2008 8:05 PM Advance Directive(s) 09/25/2015 5:47 AM Advance Directive(s) 10/13/2015 4:23 PM Advance Directive(s) 10/15/2015 11:26 AM Advance Directive(s) 08/31/2017 2:53 PM Advance Directive(s) 09/10/2017 12:39 PM Advance Directive(s) 08/11/2019 11:31 AM Advance Directive(s) 09/15/2019 7:07 AM Assessments Diagnosis Diabetes 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 cond ition with diabetic neuropathy, with long-term current use of insulin (HCC) Anxiety Anxiety state, unspecified Diagnosis Acute post-traumatic headache, not intra ctable - Primary Acute post-traumatic headache Facial pain Headache Blurry vision, left eye Other specified visual disturbances Diagnosis Acute post-traumatic headache, not intra ctable Acute post-traumatic headache Facial pain Headache Blurry vision, left eye Other specified visual disturbances Instructions Patient InstructionsClarence Berry) - 04/26/2020 2:57 PM EDTCheck your vision at yor earliest convenience documented in this encounter History of Present Illness Clarence Berry (Loli) - 04/26/2020 2:21 PM EDT SUBJECTIVE: Ana Ivory is a 80 year old female. HEPATITIS C SCREENING due on 1960 ADVANCE DIRECTIVE DISCUSSION due on 09/25/2013 BP CONTROLLED (<130/80) due on 04/25/2020 HPI Ana Ivory called the office this morning to advise she had a fall at home getting out of bed yesterday morning. States her foot was caught in a blanket when she tried to get back fell sideways out of bed. Also states she does not recall falling. States she did strike the left side of her head just above the ER nightstand. States no loss of consciousness. Has pain where she hit her head. No headache reported. Notes some blurry vision in the left eye. Today reports she does not recall arising from bed, she awoke on the floor with her foot elevated onthe bed, head down, left side of head and neck struck the bedside table and walker. No report of LOC. Notes that since the fall the left side of her head head and left side of jaw and neck hurts, hit walker. One foot caught in sheet on bed. Lying on ground when found. Prodrome:no, perhaps not awake and rolled out of bed, she is not sure Loss of consciousness: No Nausea: No Vomiting: No Vision change:yes, blurry vision left eye since the fall Speech change: no change from baseline, no trouble talking Mobility change: Notes feeling wobbly or off balance since the fall, walking with walker Headache: Yes Seizure: No Loss of bowel or bladder control: No Obtunded: No OAC: no Review of Systems Constitutional: Negative for fever. Respiratory: Negative. Cardiovascular: Negative. Musculoskeletal: Positive for arthralgias, gait problem, myalgias and neck pain. Neurological: Positive for headaches. Psychiatric/Behavioral: Negative for confusion. Objective Physical Exam Vitals signs and nursing note reviewed. Constitutional: General: She is not in acute distress. Appearance: Normal appearance. She is not ill-appearing or diaphoretic. HENT: Head: Normocephalic. No raccoon eyes or left periorbital erythema. Jaw: Tenderness present. No swelling. Comments: Tender to palpation left side of face from jaw to confucianism, no step off or deformity appreciated on palpation, jaw mobility intact, left lateral neck tender to palpation, ROM neck preserved / at baseline Eyes: General: Lids are normal. No visual field deficit. Left eye: No foreign body or discharge. Extraocular Movements: Extraocular movements intact. Left eye: Normal extraocular motion and no nystagmus. Conjunctiva/sclera: Conjunctivae normal. Left eye: Left conjunctiva is not injected. No hemorrhage. Pupils: Pupils are equal, round, and reactive to light. Cardiovascular: Rate and Rhythm: Normal rate and regular rhythm. Heart sounds: Normal heart sounds. Pulmonary: Effort: Pulmonary effort is normal. Breath sounds: Normal breath sounds. Neurological: General: No focal deficit present. Mental Status: She is alert and oriented to person, place, and time. Cranial Nerves: Cranial nerves are intact. No facial asymmetry. Sensory: Sensation is intact. No sensory deficit. Coordination: Romberg sign negative. Comments: slow ataxic gait ALLERGIES Allergen Reactions ? Adhesive Tape (Chapis* Hives Rash around bandaid never been tested for latex allergy ? Aspirin Contraindication-Medical Surgical GI bleed ? Boniva [Ibandronate] GI Upset Esophageal burning ? Carafate [Sucralfat* Other: See Comments feels poorly ? Ciprofloxacin Other: See Comments photosensitivity, dermatitis ? Codeine GI Upset ? Ibuprofen GI Upset ? Iodine Vomiting ? Lansoprazole Diarrhea ? Metformin Diarrhea ? Neosporin [Neomycin* Rash blisters ? Protonix [Pantopraz* Diarrhea ? Relafen [Nabumetone] GI Upset, Vomiting ? Actos [Pioglitazone* Swelling gabapentin (NEURONTIN) 300 mg capsule Take 1 capsule by mouth twice daily for 180 days. Morning and bedtime LORazepam (ATIVAN) 1 mg tablet TAKE 1/2 TO 1 TABLET BY MOUTH EVERY DAY NEEDED FOR FOR ANXIETY Insulin Troy, Disposable, (EASY TOUCH) 31 gauge x 3/16 Use 1 needle for each dose. 4x daily insulin glargine (LANTUS SOLOSTAR U-100 INSULIN) 100 unit/mL (3 mL) Inject 24 Units subcutaneously daily at bedtime. Lancets lancets Micro-lancets to work with current meter - One touch. Sig: Test blood sugar(s) 2 times daily. Dx: Type 2 DM - Controlled E11.9 , Insulin: Yes ketoconazole (NIZORAL) 2 % cream Apply 1 application to affected area twice daily. Continue for 1 week after rash resolves. capsaicin (ZOSTRIX) 0.025 % cream Apply 3 application to affected area three times daily. January 27, 2020 states not using Cranberry-Vitamin C-Vitamin E (CRANBERRY PLUS VITAMIN C) 140-100 mg cap Patient takes Cranberry withVitamin C capsule that contains 15,000 mg Cranberry and 100mg Vitamin C Biotin 2,500 mcg cap Nurse reports patient taking 1500 mcg dose once daily (cannot find 1500mcg doseon menu) aspirin, enteric coated (ASPIRIN, ENTERIC COATED) 81 mg EC tablet Take 81 mg by mouth once daily. atorvastatin (LIPITOR) 20 mg tablet Take 1 tablet by mouth once daily. mirabegron (MYRBETRIQ) 50 mg Tb24 Take 1 tablet by mouth twice daily. insulin aspart U-100 (NOVOLOG FLEXPEN U-100 INSULIN) 100 unit/mL (3 mL) Inject 8 Units subcutaneously twice daily with meals. Adjust as directed glimepiride (AMARYL) 2 mg tablet Take 1 tablet by mouth twice daily with meals. sertraline (ZOLOFT) 50 mg tablet Take 1 tablet by mouth once daily. PREMARIN vaginal cream APPLY 0.5 GRAMS VAGINALLY BEFORE BED EVERY NIGHT FOR 14 DAYS THEN USE TWICE AWEEK FOR 3 MONTHS Cephalexin 250 mg tab Take 1 tablet by mouth daily at bedtime. (Dr Don) oxybutynin ER (DITROPAN XL) 10 mg 24 hr tablet Take 1 tablet by mouth twice daily. (Dr Don) [facility] [place] [employer] (E08.40, Z79.4) 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, with long-term current use of insulin metoprolol succinate ER (TOPROL XL) 200 mg 24 hr tablet Take 1 tablet by mouth once daily. esomeprazole (NEXIUM) 40 mg capsule Take 1 capsule by mouth DAILY (6 AM). blood sugar diagnostic (EASY TOUCH TEST STRIP) test strip Check blood sugars 2x per day and as needed Dx: E11.9 insulin: yes vit C/E/Zn/coppr/lutein/zeaxan (PRESERVISION AREDS-2 ORAL) Take by mouth twice daily. Cholecalciferol, Vitamin D3, 1,000 unit cap Take 2 capsules by mouth once daily. SUMAtriptan (IMITREX) 50 mg tablet Take 1 tablet by mouth. at onset of headache. May take another tablet as needed one hour later. COMPOUNDED PRESCRIPTION Custom orthotics (E08.40, Z79.4) 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, with long-term current use of insulin blood sugar diagnostic (ONETOUCH ULTRA TEST) test strip Test blood sugar(s) 2 times daily. Dx: Type 2 DM - Controlled E11.9 Insulin: Yes Lancets (ONETOUCH ULTRASOFT LANCETS) lancets Test blood sugar(s) 2 times daily. Dx: Type 2 DM - Controlled E11.9 , Insulin: Yes Blood-Glucose Meter (ONETOUCH ULTRA2) monitoring kit 1 Each as needed. One Touch Meter Kit Diagnosis: Type 2 DM - Controlled E11.9 Lancets (EASY TOUCH LANCETS) lancets 1 Each twice daily. DX: 250.00 insulin multivitamins(DAILY MULTIVITAMIN TAB) Take one(1) tablet daily. PAST MEDICAL HISTORY Diagnosis Date ? Acute gastritis without mention of hemorrhage 10/31/2007 ? Adverse reaction to non-steroidal anti-inflammatory drug (NSAID) 03/28/2010 ? KATHERIN positive 03/04/2014 ? Strickland's esophagus ? C. difficile diarrhea 10/18/2011 ? Cataract 04/17/2013 [facility], Dr. Dada Rodríguez. Mild cataract in L eye- no need for cataract surgery at this time. Continue to follow up the cataract. ? 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 Displacement of lumbar intervertebral disc without myelopathy ? DISPOSITION AND FOLLOW-UP 11/11/2014 Ana Ivory is and lives in [place], [place]. At this time, we anticipate that the patient will be discharged home once clinically stable. Plan: - Discuss needs with patient. - Collaborate with Case management to facilitate DC process - Will continue to evaluate during the post op period. - Desat study 11/14/14: patient will need home oxygen (2 L with exertion only) - [facility] to [facility]. Return to [facility] on Sunday11/18/[address] removal . ? Enlargement of lymph nodes 12/20/2006 ? Esophagitis, unspecified ? Hemorrhage of gastrointestinal tract, unspecified ? Hyperreflexia 08/02/2011 ? Hypertension ? Hypoxia 11/14/2014 Desat study done 11/14/14: Home oxygen needed (2 L/min via nasal cannula with exertion and while sleeping). A face to face encounter was performed during this hospital admission regarding the need for oxygen. The patient verbalized understanding and consents to this therapy. ? LVATS ODALIS Lobectomy 11/05/2014 74 year old never smoker who had a nodule identified on a screening scan in the past due to a family concern regarding asbestosis. The nodule slowly grew from 1.0 to 1.5 cm in about 6yrs. 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 On 11/10/14, Dr. Villagomez performed video assistedleft upper lobectomy. Ramirez drain removed POD 4, air leak in CT Plan: -Chest tube to heimlich valve.Monitor air leak and daily yields. Discharge home with [facility]imlich - Pain management -Out of bed, cough,deep breathe, acapella, frequent ambulation. -Carb controlled diet . ? Migraines 11/11/2014 ? Orthostatic hypotension vasovagal syncope ? Osteoporosis, unspecified ? Snoring ? Tendonitis of ankle, right 05/03/2011 ? Type II or unspecified type diabetes mellitus without mention of complication, not stated as uncontrolled 02/07/2010 ? Urge urinary incontinence 12/16/2013 ? Variants of migraine, not elsewhere classified, without mention of intractable migraine without mention of status migrainosus Social History Tobacco Use ? Smoking status: Never Smoker ? Smokeless tobacco: Never Used Substance Use Topics ? Alcohol use: Yes Comment: 2-3 drinks/years ? Drug use: No ASSESSMENT/PLAN: 1. Acute post-traumatic headache, not intractable - ICD9: 339.21, ICD10: G44.319 (primary diagnosis) - CT BRAIN WO IVCON 2. Facial pain - ICD9: 784.0, ICD10: R51 - CT BRAIN WO IVCON 3. Blurry vision, left eye - ICD9: 368.8, ICD10: H53.8 She reports falling out of bed headfirst yesterday striking furniture and walker and has continued with left-sided headache and blurry vision persisting since that time. She notes feeling wobbly or off balance when walking, this is a change from baseline since the fall. - CT BRAIN WO IVCON- today if possible For now recommend that she rest her body get plenty of sleep, avoid heavy exertion. Rest her brain, avoid activities require concentration. Naproxen as needed for pain, take PPI to avoid GI upset. Advised to call and let us know if severe or concerning symptoms / need for ER visit if occur: such as nausea vomiting, severe headache or headache that gets worse, seizure, trouble walking or talking,increased vision changes, increased weakness or loss of bowel or bladder control, or trouble waking up from. These should be addressed right away. Clarence Berry APRN.BUSINESS ANALYSIS PROFESSIONAL documented in this encounterCarolynn Macias (Cortexa), [facility] - 04/26/2020 4:07 PM EDT Radiology Service Progress Note PATIENT NAME: Ana Ivory DATE OF SERVICE: April 26, 2020 TIME: 4:07 PM PATIENT IDENTITY VERIFICATION COMPLETED USING TWO (2) IDENTIFIERS: Name and Date of confirmed by patient verbally. FALL SCREENING: Has the patient had 2 falls in the last year or 1 fall with injury or currently using an Ambulatory Assistive Device (Walker, Cane, Wheelchair, Crutches, etc.)? No PATIENT GENDER DATA: Female. status: : No status: NO. PATIENT RELEVANT IMPLANT DATA REVIEWED: Not Applicable RADIOLOGY DEPARTMENT: CT; Exam(s) Completed: Brain PERIPHERAL IV DATA: Not applicable SIGNED BY: Jessica Acuna April 26, 2020 4:07 PM documented in this encounter Summary Purpose Family History No Family History Records Found Additional Source Comments FOR RECORDS PERTAINING TO PATIENTS WHO ARE OR HAVE BEEN ENROLLED IN A CHEMICAL DEPENDENCY/SUBSTANCE ABUSE PROGRAM, SOME INFORMATION MAY BE OMITTED. This clinical summary was aggregated from multiple sources. Caution should be exercised in using it in the provision of clinical care. This summary normalizes information from multiple sources, and as a consequence, information in this document may materially changethe coding, format and clinical context of patient data. In addition, data may be omittedin some cases. CLINICAL DECISIONS SHOULD BE BASED ON THE PRIMARY CLINICAL RECORDS. [facility] provides no warranty or guarantee of the accuracy or completeness of information in this document. UNRECOGNIZED CONTENT PROVIDED BELOW FOR UNRECOGNIZED SECTION Source Comments In the event this information is protected by the Federal Confidentiality of Alcohol and Drug Abuse Patient Records regulations: The Federal rules restrict any use of the information to criminally investigate or prosecute any alcohol or drug abuse patient.[facility] SystemIn the event this information is protected by the Federal Confidentiality of Alcohol and Drug Abuse Patient Records regulations: The Federal rules restrict any use of the information to criminally investigate or prosecute any alcohol or drug abuse patient.[facility] SystemIn the event this information is protected by the Federal Confidentiality of Alcohol and Drug Abuse Patient Records regulations: The Federal rules restrict any use of the information to criminally investigate or prosecute any alcohol or drug abuse patient.[facility] SystemIn the event this information is protected by the Federal Confidentiality of Alcohol and Drug Abuse Patient Records regulations: The Federal rules restrict any use of the information to criminally investigate or prosecute any alcohol or drug abuse patient.[facility] SystemIn the event this information is protected by the Federal Confidentiality of Alcohol and Drug Abuse Patient Records regulations: The Federal rules restrict any use of the information to criminally investigate or prosecute any alcohol or drug abuse patient.[facility] SystemIn the event this information is protected by the Federal Confidentiality of Alcohol and Drug Abuse Patient Records regulations: The Federal rules restrict any use of the information to criminally investigate or prosecute any alcohol or drug abuse patient.[facility] UNRECOGNIZED CONTENT PROVIDED BELOW FOR UNRECOGNIZED SECTION Reason for Visit Reason Onset Date Comments Refill Request 04/13/2020 Reason Onset Date Comments Fall 04/26/2020 Reason Comments Fall Reason Comments Radiology CT Reason Onset Date Comments Results 04/27/2020 CT UNRECOGNIZED CONTENT PROVIDED BELOW FOR UNRECOGNIZED SECTION Miscellaneous Notes Telephone Encounter - BishnuRiddhi swan HARRISON - 04/16/2020 10:57 AM EDTCalled pt she will just keep her Dec appt. She will call if she needs something else. elephone Encounter - Alicia Blount - 04/14/2020 1:06 PM EDT Does patient want/need to reschedule the Sept 3 month follow up that was canceled due to template change? The following approved medication requests have been transmitted electronically. Signed Prescriptions Disp Refills gabapentin (NEURONTIN) 300 mg capsule 180 capsule 1 Sig: Take 1 capsule by mouth twice daily for 180 days. Morning and bedtime ABRAM: No Authorizing Provider: ALICIA BLOUNT LORazepam (ATIVAN) 1 mg tablet 30 tablet 2 Sig: TAKE 1/2 TO 1 TABLET BY MOUTH EVERY DAY NEEDED FOR FOR ANXIETY BULL Class: C-IV ABRAM: No Authorizing Provider: ALICIA BLOUNT MD elephone Encounter - Eun Hendrix - 04/13/2020 1:56 PM EDT Patient has been identified by name and date of : Yes Pending Prescriptions Disp Refills GABAPENTIN 300 MG CAPSULE 180 capsule 1 Sig: Take 1 capsule by mouth twice daily for 180 days. Morning and bedtime ABRAM: No LORAZEPAM 1 MG TABLET 30 tablet 2 Sig: TAKE 1/2 TO 1 TABLET BY MOUTH EVERY DAY NEEDED FOR FOR ANXIETY BULL Class: C-IV ABRAM: No RX INSTRUCTIONS: Patient aware RX will be sent to pharmacy. No need to notify patient. Eun Morris documented in this encounterTelephone Encounter - Yulisa Bills LPN - 04/26/2020 12:41 PM EDTSpoke with patient and patient agrees to face to face appointment today at same time. elephone Encounter - Clarence Berry (Loli) - 04/26/2020 12:13 PM EDTI think she would be best served with an in person visit if willing to do so, can add her to my schedule today if she is willing, I do not think she would be best served by a [facility] call. elephone Encounter - Harlan Zarate LPN - 04/26/2020 8:43 AM EDTPt calls to state she had a fall at home getting out of bed yesterday morning. She states her foot was caught in the blanket when she tried to get out of bed and fell sideways out of bed, but also states she doesn't remember the fall. States she did strike the L side of her head just above her ear on the nightstand. Denies LOC. No headache, but pain where she hit her head. She does note some blurry vision in the L eye. Appt scheduled with OWNER OPERATOR for today. Harlan Zarate LPN documented in this encounterTelephone Encounter - Yulisa Bills LPN - 04/27/2020 9:23 AM EDT Patient notified of CT results and verbalized understanding. elephone Encounter - Clarence Berry) - 04/27/2020 8:01 AM EDTPlease let her know no acute changes found on CT head. Chronic changes and previous stroke only. IMPRESSION: ? No acute intracranial abnormality. ? Moderate burden of presumed chronic microvascular ischemic changes and remote left lacunar infarct in the left lentiform nucleus. documented in this encounter UNRECOGNIZED CONTENT PROVIDED BELOW FOR UNRECOGNIZED SECTION INFORMATION SOURCE DATE CREATED AUTHOR AUTHOR'S ORGANIZATIO N 04/27/2020 [facility]
--- OUTSIDE RECORDS SUMMARY | 2020-05-25 15:29 | XMS RPT_ITS | CCD ---
:1940 External Reference #:[id number] Author Organization [facility] Care Team Providers Name Role Phone Rhonda Blount Primary Care Provider Allergies Reported Allergen Reaction(s) Severity Date of Onset Location Adhesive Tape Hives 08-31-2008 - [facility] ([id number]) Aspirin Contraindication-Medi [facility] (40884) Ciprofloxacin Other: See Comments 12-01-2013 - [facility] (58083) Codeine GI Upset 08-24-2005 - [facility] (23974) Ibandronate GI Upset [facility]60560[facility] Ibuprofen GI Upset 03-22-2006 - [facility] (34431) Iodine Vomiting 08-25-2008 - [facility] (73589) lansoprazole Diarrhea 11-01-2011 - [facility] (73514) metFORMIN Diarrhea 05-10-2011 - [facility] (13433) nabumetone GI Upset, Vomiting 03-22-2006 - [facility] (02961) Zgxsskyy-Tcdbxqydnn-Hde Rash 08-31-2008 - [facility] ymyxin (31118) pantoprazole Diarrhea 01-13-2010 - [facility] (20020) pioglitazone Swelling Low 12-03-2016 - [facility] (21449) Sucralfate Other: See Comments 04-24-2012 - [facility] (54553) Medications Medication Name Sig Date Prescriber Location Aspirin aspirin, enteric coated [facility] Provider [facility] ([id number]) (ASPIRIN, ENTERIC COATED) 81 mg EC tablet Take 81 mg by mouth once daily. 0 Active Comment: Take 81 mg by mouth once danuta ly. atorvastatin atorvastatin (LIPITOR) 01-08-2020 Alicia D [facility] 20 mg tablet Take 1 (50046) tablet by mouth once daily. 90 tablet 3 01/08/2020 Active Comment: Take 1 tablet by mouth once daily. Biotin Biotin 2,500 mcg cap Nurse 01-27-[address] [facility] (01699) reports patient taking 1500 mcg dose once daily (cannot find 1500mcg dose on menu) 0 01/27/2020 Active Comment: Nurse reports patient taking 1500 mcg dose once daily (cannot find 1500mcg dose on menu) Blood-Glucose Meter Blood-Glucose Meter 05-23-2017 Alicia Rhonda [facility] (ONETOUCH ULTRA2) (ONETOUCH ULTRA2) (4419 5) monitoring kit monitoring kit 1 Each as needed. One Touch Meter Kit Diagnosis: Type 2 DM - Controlled E11.9 1 Each 0 05/23/2017 Active Blood-Glucose Meter (ONETOUCH 05-23-2017 Alicia Rhonda [facility] (61277) ULTRA2) monitoring kit 1 Each as needed. One Touch Meter Kit Diagnosis: Type 2 DM - Controlled E11.9 1 Each 0 05/23/2017 Active Blood-Glucose Meter (ONETOUCH 05-23-2017 Alicia Rhonda [facility] (39906) ULTRA2) monitoring kit 1 Each as needed. One Touch Meter Kit Diagnosis: Type 2 DM - Controlled E11.9 1 Each 0 05/23/2017 Active Blood-Glucose Meter (ONETOUCH 05-23-2017 Alicia Rhonda [facility] (28733) ULTRA2) monitoring kit 1 Each as needed. One Touch Meter Kit Diagnosis: Type 2 DM - Controlled E11.9 1 Each 0 05/23/2017 Active Blood-Glucose Meter (ONETOUCH 05-23-2017 [facility] (32129[facility] ULTRA2) monitoring kit 1 Each as needed. One Touch Meter Kit Diagnosis: Type 2 DM - Controlled E11.9 1 Each 0 05/23/2017 Active Blood-Glucose Meter (ONETOUCH 05-23-2017 [facility] (76836) ULTRA2) monitoring kit 1 Each as needed. One Touch Meter Kit Diagnosis: Type 2 DM - Controlled E11.9 1 Each 0 05/23/2017 Active Comment: 1 Each as needed. One Touch Meter Kit Diagnosis: Type 2 DM - Controlled E11.9 Capsaicin capsaicin (ZOSTRIX) 01-27-2020 [facility] Berry [facility] 0.025 % cream Apply 3 (88158 ) application to affected area three times daily. January 27, 2020 states not using 100 g 0 01/27/2020 Active Comment: Apply 3 application to affec amando area three times daily. January 27, 2020 states not using Cephalexin Cephalexin 250 mg tab 08-08-2019 Alicia Rhonda Blount [facility] Take 1 tablet by mouth (4419 5) daily at bedtime. (Dr Don) 0 08/08/2019 Active Comment: Take 1 tablet by mouth daily at bedtime. (Dr Don) Cholecalciferol Cholecalciferol, Vitamin 04-25-2019 [facility] ([facility] D3, 1,000 unit cap Take 2 Berry (4 4195) capsules by mouth once daily. 0 04/25/2019 Active Comment: Take 2 capsules by mouth onc e daily. COMPOUNDED COMPOUNDED 01-03-2018 Alicia Rhonda Blount [facility] in PRESCRIPTION PRESCRIPTION Custom (45120) orthotics (E08.40, Z79.4) 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, with long-term current use of insulin 2 Each 0 01/03/2018 Active COMPOUNDED PRESCRIPTION Custom 01-03-2018 [facility] (80873[facility] orthotics (E08.40, Z79.4) 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, with long-term current use of insulin 2 Each 0 01/03/2018 Active COMPOUNDED PRESCRIPTION Custom 01-03-2018 Alicia D Prashanthampas [facility] (65850) orthotics (E08.40, Z79.4) 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, with long-term current use of insulin 2 Each 0 01/03/2018 Active COMPOUNDED PRESCRIPTION Custom 01-03-2018 Alicia D [place] C [facility] (59295) orthotics (E08.40, Z79.4) 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, with long-term current use of insulin 2 Each 0 01/03/2018 Active COMPOUNDED PRESCRIPTION Custom 01-03-2018 [facility] (33810[facility] orthotics (E08.40, Z79.4) 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, with long-term current use of insulin 2 Each 0 01/03/2018 Active COMPOUNDED PRESCRIPTION Custom 01-03-2018 Alicia Rhonda [facility] (32212) orthotics (E08.40, Z79.4) 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, with long-term current use of insulin 2 Each 0 01/03/2018 Active Comment: Custom orthotics (E08.40, Z7 9.4) Diabetes 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 condition with diabetic neur opathy, with long-term current use of insulin Cranberry-Vitamin Cranberry-Vitamin 01-27-2020 [facility] David balbuena C-Vitamin E (CRANBERRY C-Vitamin E ([facility] (69563) PLUS VITAMIN C) 140-100 PLUS VITAMIN C) 140-100 mg cap mg cap Patient takes Cranberry with Vitamin C capsule that contains 15,000 mg Cranberry and 100mg Vitamin C 0 01/27/2020 Active Cranberry-Vitamin C-Vitamin E 01-27-2020 [facility] (00977) (CRANBERRY PLUS VITAMIN C) 140-100 mg cap Patient takes Cranberry with Vitamin C capsule that contains 15,000 mg Cranberry and 100mg Vitamin C 0 01/27/2020 Active Cranberry-Vitamin C-Vitamin E 01-27-2020 [facility] (93202) (CRANBERRY PLUS VITAMIN C) 140-100 mg cap Patient takes Cranberry with Vitamin C capsule that contains 15,000 mg Cranberry and 100mg Vitamin C 0 01/27/2020 Active Cranberry-Vitamin C-Vitamin E 01-27-2020 [facility] (10315) (CRANBERRY PLUS VITAMIN C) 140-100 mg cap Patient takes Cranberry with Vitamin C capsule that contains 15,000 mg Cranberry and 100mg Vitamin C 0 01/27/2020 Active Cranberry-Vitamin C-Vitamin E 01-27-2020 [facility] (71248) (CRANBERRY PLUS VITAMIN C) 140-100 mg cap Patient takes Cranberry with Vitamin C capsule that contains 15,000 mg Cranberry and 100mg Vitamin C 0 01/27/2020 Active Cranberry-Vitamin C-Vitamin E 01-27-2020 Alicia Blount [facility] (19033) (CRANBERRY PLUS VITAMIN C) 140-100 mg cap Patient takes Cranberry with Vitamin C capsule that contains 15,000 mg Cranberry and 100mg Vitamin C 0 01/27/2020 Active Comment: Patient takes Cranberry with Vitamin C capsule that contains 15,000 mg Cranberry and 100mg Vitamin C Esomeprazole esomeprazole (NEXIUM) 40 mg 06-18-2019 [facility] capsule Indications: (91370) 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 90 capsule 3 06/18/2019 Active Comment: Take 1 capsule by mouth PAOLA Y (6 AM). Estrogens, Conjugated PREMARIN vaginal 06-25-2019 [facility] Provider [facility] (CUSTODIAL) cream APPLY 0.5 GRAMS (95045 ) VAGINALLY BEFORE BED EVERY NIGHT FOR 14 DAYS THEN USE TWICE A WEEK FOR 3 MONTHS 0 06/25/2019 Active Comment: APPLY 0.5 GRAMS VAGINALLY BE FORE BED EVERY NIGHT FOR 14 DAYS THEN USE TWICE A WEEK FOR 3 MONTHS gabapentin gabapentin 09-23-2019 - Alicia Ellis [facility] inic (NEURONTIN) 300 mg 10-11-2020 (05363) capsule Indications: 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, with long-term current use of insulin ([facility]) Take 1 capsule by mouth twice daily for 180 days. Morning and bedtime 180 capsule 1 04/14/2020 10/11/2020 Active Comment: Take 1 capsule by mouth twic e daily for 180 days. Morning and bedtime glimepiride glimepiride (AMARYL) 2 09-14-2019 Clarence (Production Helper) [facility] mg tablet Indications: (4419 5) 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, with long-term current use of insulin ([facility]) Take 1 tablet by mouth twice daily with meals. 180 tablet 1 09/14/2019 Active Comment: Take 1 tablet by mouth twice daily with meals. Insulin Glargine insulin glargine 02-18-2020 Alicia Blount [facility] (LANTUS SOLOSTAR U-100 (4419 5) INSULIN) 100 unit/mL (3 mL) Inject 24 Units subcutaneously daily at bedtime. 15 mL 3 02/18/2020 Active Comment: Inject 24 Units subcutaneous ly daily at bedtime. Insulin, Aspart, insulin aspart U-100 10-24-2019 - Alicia Ellis [facility] Human (NOVOLOG FLEXPEN 10-23-2020 (81710) U-100 INSULIN) 100 unit/mL (3 mL) Inject 8 Units subcutaneously twice daily with meals. Adjust as directed 5 Pen 11 10/24/2019 10/23/2020 Active Comment: Inject 8 Units subcutaneousl y twice daily with meals. Adjust as directed Ketoconazole ketoconazole (NIZORAL) 2 01-27-2020 Alicia Rhonda [facility] % cream Apply 1 (97598) application to affected area twice daily. Continue for 1 week after rash resolves. 30 g 0 01/27/2020 Active Comment: Apply 1 application to affec amando area twice daily. Continue for 1 week after rash resolves. LORazepam LORazepam (ATIVAN) 1 01-06-2020 - Alicia Ellis [facility] mg tablet Indications: 07-13-2020 (4419 5) Anxiety TAKE 1/2 TO 1 TABLET BY MOUTH EVERY DAY NEEDED FOR FOR ANXIETY 30 tablet 2 04/14/2020 07/13/2020 Active Comment: TAKE 1/2 TO 1 TABLET BY MOUT H EVERY DAY NEEDED FOR FOR ANXIETY Metoprolol metoprolol succinate ER 06-20-2019 Alicia Ellis [facility] (TOPROL XL) 200 mg 24 hr (44 195) tablet Indications: Essential hypertension Take 1 tablet by mouth once daily. 90 tablet 3 06/20/2019 Active Comment: Take 1 tablet by mouth once daily. mirabegron mirabegron (MYRBETRIQ) 50 10-24-2019 Alicia Ellis [facility] mg Tb24 Take 1 tablet by (44 195) mouth twice daily. 0 10/24/2019 Active Comment: Take 1 tablet by mouth twice daily. Miscellaneous Medical Miscellaneous Medical 08-08-2019 Alicia Ellis [facility] (71004) Indications: 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, with long-term current use of insulin (HCC) Custom Orthotics (E08.40, Z79.4) 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, with long-term current use of insulin 2 Each 0 08/08/2019 Active [facility] 08-08-2019 [employer] Rhonda [facility] (77747) Indications: 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, with long-term current use of insulin (HCC) Custom Orthotics (E08.40, Z79.4) 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, with long-term current use of insulin 2 Each 0 08/08/2019 Active [facility] 08-08-2019 [facility] (84270) Indications: 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, with long-term current use of insulin (HCC) Custom Orthotics (E08.40, Z79.4) 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, with long-term current use of insulin 2 Each 0 08/08/2019 Active [facility] 08-08-2019 [facility] (25682) Indications: 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, with long-term current use of insulin (HCC) Custom Orthotics (E08.40, Z79.4) 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, with long-term current use of insulin 2 Each 0 08/08/2019 Active [facility] 08-08-2019 [facility] (17844) Indications: 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, with long-term current use of insulin (HCC) Custom Orthotics (E08.40, Z79.4) 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, with long-term current use of insulin 2 Each 0 08/08/2019 Active [facility] 08-08-2019 [facility] (06418) Indications: Diabetes 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 condition [...] of insulin multivitamins(DAILY multivitamins(DAILY 12-08-2009 Randi Kessler [facility] MULTIVITAMIN TAB) MULTIVITAMIN TAB) Take (Industrial Truck Driver) [facility] (53958) one(1) tablet daily. 0 12/08/2009 Active multivitamins(DAILY MULTIVITAMIN 12-08-2009 Randi Jefferson (Industrial Truck Driver) [facility] TAB) Take one(1) tablet daily. 0 [place] (53223) 12/08/2009 Active multivitamins(DAILY MULTIVITAMIN 12-08-2009 Randi Jefferson (Industrial Truck Driver) [facility] TAB) Take one(1) tablet daily. 0 [place] (52238) 12/08/2009 Active multivitamins(DAILY MULTIVITAMIN 12-08-2009 Randi Jefferson (Industrial Truck Driver) [facility] TAB) Take one(1) tablet daily. 0 [place] (20435) 12/08/2009 Active multivitamins(DAILY MULTIVITAMIN 12-08-2009 Randi Jefferson (Industrial Truck Driver) [facility] TAB) Take one(1) tablet daily. 0 [place] (51198) 12/08/2009 Active multivitamins(DAILY MULTIVITAMIN 12-08-2009 Randi Jefferson (Industrial Truck Driver) [facility] TAB) Take one(1) tablet daily. 0 [place] (81377) 12/08/2009 Active Comment: Take one(1) tablet daily. oxybutynin oxybutynin ER (DITROPAN 08-08-2019 Alicia Blount [facility] XL) 10 mg 24 hr tablet (4419 5) Take 1 tablet by mouth twice daily. (Dr Don) 0 08/08/2019 Active Comment: Take 1 tablet by mouth twice daily. (Dr Don) Sertraline sertraline (ZOLOFT) 50 09-14-2019 Clarence (Production Helper) [facility] mg tablet Take 1 tablet (441 95) by mouth once daily. 90 tablet 3 09/14/2019 Active Comment: Take 1 tablet by mouth once daily. SUMAtriptan SUMAtriptan (IMITREX) 50 11-01-2018 [facility] mg [facility] Take 1 tablet (441 95) by mouth. at onset of headache. May take another tablet as needed one hour later. 10 tablet 5 11/01/2018 Active Comment: Take 1 tablet by mouth. at o nset of headache. May take another tablet as needed one hour later. vit C/E/Zn/coppr/lutein/zeaxan vit C/E/Zn/coppr/lutein/zeaxan [facility] (PRESERVISION AREDS-2 ORAL) ([facility] Provider Clinic Take by mouth twice daily. 0 (95954) Active vit C/E/Zn/coppr/lutein/zeaxan ([facility] Provider [facility] (29286) AREDS-2 ORAL) Take by mouth twice daily. 0 Active vit C/E/Zn/coppr/lutein/zeaxan ([facility] (34658) AREDS-2 ORAL) Take by mouth twice daily. 0 Active vit C/E/Zn/coppr/lutein/zeaxan ([facility] (23159) AREDS-2 ORAL) Take by mouth twice daily. 0 Active vit C/E/Zn/coppr/lutein/zeaxan ([facility] Provider [facility] (01653) AREDS-2 ORAL) Take by mouth twice daily. 0 Active vit C/E/Zn/coppr/lutein/zeaxan ([facility] (35043) AREDS-2 ORAL) Take by mouth twice daily. 0 Active Comment: Take by mouth twice daily. 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 (47209) Diabetes mellitus without Secondary diabetes Active 0 - [facility] complication mellitus (36531) Disorders of lipid Hyperlipidemia Active 11-06-2016 - [facility] metabolism (99955) Esophageal disorders Gastro-esophageal Active 11-23-2011 - [facility] reflux disease with (06711) esophagitis Essential hypertension Hypertensive disorder Active 3 - [facility] (94666) Genitourinary symptoms Urge incontinence of Active 12-16-2013 - [facility] and ill-defined urine (69656) conditions Headache; including Migraine Active 11-11-2014 - [facility] migraine (25907) Nutritional deficiencies Vitamin D deficiency Active 03-10-20 - [facility] (46590) Osteoarthritis Degenerative joint Active 03-06-2006 - [facility] disease involving (01211) multiple joints Osteoporosis Osteoporosis Active 02-19-2006 [facility] (92218) Other gastrointestinal Irritable bowel Active 02-01-2012 - matias [facility] disorders syndrome (39247) Other hereditary and Restless legs Active 06-19-2006 - [facility] degenerative nervous (27007) system conditions Other lower respiratory Chronic cough Active 01-27-2020 - [facility] disease (66585) Other nervous system 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 - [facility] disorders (66952) Other upper respiratory Allergic rhinitis Active 03-06-2006 - [facility] disease (03246) Spondylosis; Displacement of lumbar Active [facility] intervertebral disc intervertebral disc ( 90617) disorders; other back without myelopathy problems Past or Other Problems Category Problem Name Status Date Location Diseases of mouth; Xerostomia Completed 11-06-2016 - [facility] excluding dental (14950) Disorders of teeth Temporomandibular joint Completed 11-22-2018 - [facility] and jaw disorder (91959) Other disorders of Nonulcer dyspepsia Completed 08-20-2017 - [facility] stomach and duodenum (52249) Other upper Bronchospasm Completed 01-21-2015 - [facility] respiratory disease (25196) Residual codes; Insomnia Completed 04-30-2007 - [facility] inic unclassified (18590) Results Result Name Value Range Unit Interpretation Flag Date Location [facility] on 2020-04-27 [facility] Telephone (INTMWS) Normal 04-27-2020 [facility] ANA IVORY ([id number]) 1940 [facility] Date Time Provider Department (99305) 04/27/20 CLARENCE BERRY (LOAN DOCUMENTS CLOSER) INTMWS During your visit today, we recorded the following informati on about you: Clarence Berry APRN.LOAN DOCUMENTS CLOSER 04/27/2020 8:03 AM Signed Please let her [...] Diarrhea METFORMIN 05/10/2011 6 - Diarrhea NEOSPORIN ([id number]*08/31/2008 2 - Rash Comments: blisters PROTONIX (PANTOPRAZOLE) [...] 04/27/20 progress on 2020-04 PROGRESS HNO ID: [id number] Normal 04-26-2020 [facility] Author: Jessica Pete (Tech) [facility] (75114) Service: ? Author Type: Electronics Engineering Manager Type: Progress Notes Filed: 04/26/2020 4:08 PM [...] 26, 2020 4:07 PM PROGRESS HNO ID: [id number] Normal 04-26-2020 [facility] Author: Clarence Berry (Cns) [facility] ([id number]) Service: ? Author Type: Nurse Specialist Type: [...] left side of face from jaw to yazidi, no step off or deformity appreciated on [...] EVERY DAY NEEDED FOR FOR ANXIETY Insulin [place], Disposable, (EASY TOUCH) 31 gauge x 3/16 [...] tablet by mouth twice daily. (Dr Don) [facility] Custom Orthotics (E08.40, Z79.4) Diabetes mellitus due [...] later. COMPOUNDED PRESCRIPTION Custom orthotics (E08.40, Z79.4) Edilma huntley 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 condition with [...] C. difficile diarrhea 10/18/2011 - Cataract 04/17/2013 [facility], Dr. Dada Rodríguez. Mild cataract in L eye- no need for cataract surgery at this time. Continue to follow u p the cataract. 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 At thi s time, we anticipate that the patient will be discharged home once cli nically stable. Plan: - Discuss needs with patient. - [facility] to facilitate DC process - Will continue to evalu ate during the post op period. - Desat study 11/14/14: patient will need home oxygen (2 L with exertion only) - Discharge home today with [facility]. [facility] Sun[facility]/[address] [...] be addressed right away . Clarence Berry APRN.LOAN DOCUMENTS CLOSER ct brain wo ivcon o n 2020-04-26 CT BRAIN WO * * *Final Report* * * Normal 04-26 [facility] IVCON DATE OF EXAM: Apr 26 2020 4:04PM [facility] ([id number]) [facility] 0504 - CT BRAIN WO IVCON [...] and im aged soft tissues are unremarkable. Forest Fire Equipment Operator (topogram) images: No additional findings. IMPRESSION: No acute intracranial abnormality. Moderate burden of presumed chronic microvascular ischemic c hanges and remote left lacunar infarct in the left lentiform nucleus. Wet Process Assistant Head Miller: ABHILASH Transcribe Date/Time: Apr 26 2020 4:08P Dictated by : JOSÉ MIGUEL JOSHI MD This examination was interpreted and the report reviewed and electronically signed by: JOSÉ MIGUEL JOSHI MD on Apr 26 2020 4:12PM EST [id number] [facility] (FAMP[facility]) Normal 04-26-2020 [facility] ANA IVORY ([id number]) 1940 [facility] Date Time Provider Department ([id number]) 04/26/20 [facility] During your visit today, we recorded the [...] in the L eye. Appt scheduled with ATMOSPHERIC PHYSICIST for today. Harlan Berry APRN.LOAN DOCUMENTS CLOSER 04/26/2020 12:16 PM Signed I think she [...] Diarrhea METFORMIN 05/10/2011 6 - Diarrhea NEOSPORIN ([id number]*08/31/2008 2 - Rash Comments: blisters PROTONIX (PANTOPRAZOLE) [...] 2020-04-26 [facility] Office Visit (INTMWS) Normal 04-26-20 [facility] ANA IVORY ([id number]) 1940 [facility] [facility] Date Time Provider Department ([id number]) 04/26/20 2:20 PM CLARENCE BERRY (LOLI) INTMWS [...] side of face from jaw t o yazidi, no step off or deformity appreciated on [...] EVERY DAY NEEDED FOR FOR ANXIETY Insulin [place], Disposable, (EASY TOUCH) 31 gauge x 3/16 [...] et by mouth twice daily. (Dr Don) [facility] [employer] [facility] (E08.40 , Z79.4) Diabetes mellitus [...] C. difficile diarrhea 10/18/2011 - Cataract 04/17/2013 [facility], Dr. Dada johnson Mild cataract in L eye- no need for cataract surgery at this time. Continue to follow up the cat aract. 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 At thi s time, we anticipate that the patient will be discharged home once c linically stable. Plan: - Discuss needs with patient. - Collaborate with Case management to facilitate DC process - Will continue to evaluate during the post op period. - Desat study 11/14/14: patient will need home oxygen (2 L with exertion only) - Discharge home today with [facility] care for assistance with chest tube to [...] should be addressed right away. Clarence Berry APRN.LOAN DOCUMENTS CLOSER Clarence Berry APRN.CNS 04/26/2020 3:06 PM Addendum [...] Diarrhea METFORMIN 05/10/2011 6 - Diarrhea NEOSPORIN ([id number]-WCMBNHPGQE-TU*08/31/2008 2 - Rash Comments: blisters PROTONIX (PANTOPRAZOLE) [...] left eye [H53.8] Order(s):CT BRAIN WO IVCON [[id number]] Order #: [id number] FUT URE Prescriptions as of 04/26/2020 Sig: [...] on 04/26/20 No panel information on 2020-04-26 [facility] ([id number]) obsolete on 2020-04 OBSOLETE Refill (MIQ) Normal 04-13-2020 [facility] ANA IVORY ([id number]) 1940 [place] Date Time Provider Department (77142) 04/13/20 ALICIA BLOUNT MIQ During your visit [...] Diarrhea METFORMIN 05/10/2011 6 - Diarrhea NEOSPORIN ([id number]-FPVQZKJOXH-GU*08/31/2008 2 - Rash Comments: blisters PROTONIX (PANTOPRAZOLE) [...] [G47.00] 04/30/2007 LUNG NODULE [R22.2] 09/05/2007 04/30/2015 STRICKLNAD'S ESOPHAGUS [K22.70] Acute gastritis without mention of [...] on 2020-03 OBSOLETE Refill (INTMWS) Normal 04-02-2020 [facility] ANA IVORY ([id number]) 1940 [facility] Date Time Provider Department (07347) 04/02/20 ALICIA BLOUNT INTMWS During your visit today, we recorded the following informati on about you: Libertad Burdick [facility] 04/02/2020 9:33 AM Signed Patient has been [...] Diarrhea METFORMIN 05/10/2011 6 - Diarrhea NEOSPORIN (IILJBJHA-CHULAIPMUS-TK*08/31/2008 2 - Rash Comments: blisters PROTONIX (PANTOPRAZOLE) 01/13/2010 6 - Diarrhea RELAFEN (NABUMETONE) 03/22/2006 8 - GI Upset 11 - Vomiting ACTOS (PIOGLITAZONE HCL) 12/03/2016 7 - Swelling Date Reviewed: 01/27/2020 Reviewed by: Cintia Macias LPN - Fully Assessed Reason for Visit: Refill Request [94] Order(s):Insulin [place], Disposable, (EASY TOUCH) 31 gauge x 3/16Use [...] Discontinued During This Encounter Prescriptions - Insulin [place], Disposabl e, (EASY TOUCH) 31 gauge x 16 ndle (Discontinued) Use 1 needle for each dose. 2x daily Encounter Status:Closed by CL[facility]ENCE LEVINE [facility]) Normal 04-02-2020 [place] [facility] ANA IVORY ([id number]) 1940 [facility] Date Time Provider Department (88324) 04/02/20 ALICIA BLOUNT INTWS During your visit today, we recorded the following informati on about you: Libertad Burdick [facility] 04/02/2020 9:36 AM Signed Ana Ivory is calling Alicia daniels MD today to request the following medication, not on her current list, please send to Ana Paula Whaley: codeine-guaiFENesin (VIRTUSSIN AC) 10-10 0 mg/5 mL syrup. Please notify patient once completed. Patient has been identified by name and birthdate. Duration of symptoms: N/A Person calling: self Call patient at: at home [phone] (home) [phone] (cell) Was an appointment scheduled: No Closing statement: Results or non-symptom based questions: Thank you for calling [facility], your call will be returned within the next business day. Libertad Burdick Pss Clarence Berry APRN.LOAN DOCUMENTS CLOSER 04/06/2020 7:29 AM Signed Rx sent. PDMP website checked and validated. All prescrip tions have been APPROPRIATELY filled. No suspicious activity was identified. 04/06/2020 by Clarence Berry APRN.LOAN DOCUMENTS CLOSER Allergies As of Date: 04/02/2020 Noted Allergy [...] Diarrhea METFORMIN 05/10/2011 6 - Diarrhea NEOSPORIN (BBPBPJAF-JOVSPBEGLE-IW*08/31/2008 2 - Rash Comments: blisters PROTONIX (PANTOPRAZOLE) [...] on 2020-03-13 CNPN Telephone (INTMWS) Normal 03-13-2020 [place] [facility] ANA IVORY ([id number]) 1940 [facility] Date Time Provider Department (35806) 03/13/20 ALICIA BLOUNT INTMWS During your visit today, we recorded the following informati on about you: Simran Russell Pss 03/13/2020 10:55 AM Signed Patient calling in needing her PT order faxed to [facility]. Simran Russell Pss Isabela Mendoza Cma [...] Diarrhea METFORMIN 05/10/2011 6 - Diarrhea NEOSPORIN (POSNEDWE-NROIVJBRWW-AD*08/31/2008 2 - Rash Comments: blisters PROTONIX (PANTOPRAZOLE) [...] OBSOLETE Refill (INTMWS) Normal 02-27-2020 Mannie mancini [facility] ANA IVORY ([id number]) 1940 [facility] Date Time Provider Department ([id number]) 02/27/20 ALICIA BLOUNT INTVENKAT During your visit [...] Diarrhea METFORMIN 05/10/2011 6 - Diarrhea NEOSPORIN (WGNSODXG-YOULAHJOLQ-HW*08/31/2008 2 - Rash Comments: blisters PROTONIX (PANTOPRAZOLE) [...] Status:Closed by RIDDHI MARIE LPN on 02/27/20 [facility] 2020-02-19 [facility] Telephone (INTWS) Normal 02-19-2020 [place] [facility] ANA IVORY ([id number]) 1940 [facility] Date Time Provider Department ([id number]) 02/19/20 ALICIA BLOUNT INTWS During your visit today, we recorded the following informati on about you: Mansi Preston LPN 02/19/2020 2:23 PM Signed Patient Robb calling asking for a handicap plac [place] rx, asking for one please. He said has never had one for hi s . 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 I explained what he would need t o do with the rx. Please advise Clarence Berry APRN.LOLI 02/20/2020 9:40 AM Signed See below, filed, please process Danielle Guido MA 02/20/2020 10:47 AM Signed Called and LM on to return call to [facility] and ask to speak with [facility] triage nurse. Please update that Rx has [...] Diarrhea METFORMIN 05/10/2011 6 - Diarrhea NEOSPORIN (JPZSLVEH-GPHLXAYDBN-SC*08/31/2008 2 - Rash Comments: blisters PROTONIX (PANTOPRAZOLE) [...] OBSOLETE Refill (INTMWS) Normal 02-18-2020 Mannie mancini [facility] ANA IVORY ([id number]) 1940 [facility] Date Time Provider Department ([id number]) 02/18/20 ALICIA BLOUNT INTMWS During your visit [...] Diarrhea METFORMIN 05/10/2011 6 - Diarrhea NEOSPORIN (UDZEHDOT-KPZHZMLLOL-HE*08/31/2008 2 - Rash Comments: blisters PROTONIX (PANTOPRAZOLE) [...] * Take 81 mg by mouth once poala * ATORVASTATIN 20 MG TABLET Take 1 [...] on 2020-02-13 CNPN Telephone (INTMWS) Normal 02-13-2020 [place] [facility] ANA IVORY ([id number]) 1940 [facility] Date Time Provider Department ([id number]) 02/13/20 ALICIA BLOUNT INTMWS During your visit [...] to have Physical Thera py done at [facility]. Please fax order and patient will schedule appointment. Yulisa Bills LPN 02/19/2020 7:56 AM Signed Order has been faxed to [facility] as requested. Allergies As of Date: [...] Diarrhea METFORMIN 05/10/2011 6 - Diarrhea NEOSPORIN (OQXYVWAS-TGYAKYAVOY-IQ*08/31/2008 2 - Rash Comments: blisters PROTONIX (PANTOPRAZOLE) 01/13/2010 6 - Diarrhea RELAFEN (NABUMETONE) 03/22/2006 8 - GI Upset 11 - Vomiting ACTOS (PIOGLITAZONE HCL) 12/03/2016 7 - Swelling Date Reviewed: 01/27/2020 Reviewed by: Cintia Macias LPN - Fully Assessed Reason for Visit: [facility] Speech [Other] Primary Visit Diagnosis:Stroke determine d by clinical assessment ([facility]) [I63.9] Other Visit Diagnoses:LUMBAR DISC DISPLACEMENT [M51.26] 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 Author Type: Physician Type: Progress Notes Filed: 01/27/2020 4:59 PM Note Text: This note was created using [employer]. Subjective Ana Ivory is a 79 year [...] appointment with Dr. Nacho Munguia (Endocrinology at [facility]) at the end of this month. [...] C. difficile diarrhea 10/18/2011 - Cataract 04/17/2013 [facility], Dr. Dada Rodríguez. Mild cataract in L eye- no need for cataract surgery at this time. Continue to follow u p the cataract. 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 At [facility] time, we anticipate that the patient [...] by mouth twice daily. (Dr Don) - [facility] [employer] [facility] [employer] [facility] (E08.40 , Z79.4) Diabetes mellitus [...] s by mouth once daily. - Insulin [place], Disposable, (EASY TOUCH) 31 gauge x 3/16 [...] Negative Negative Ketones, Urine Negative Negative Specific [place], Ur 1.005 - 1.030 1.014 Hemoglobin/Blood,Ur Negative [...] Ratio <30 mg/g 668 (H) Not calculated [place] Free, Serum 3.30 - 19.40 mg/L 19.8 [...] ICD-10-CM 1. 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 2. 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 Essential hypertension I10 Fair [...] after appt, reviewed last progress note with SCHOOL CROSSING GUARD SUPERVISOR and diagnosis of Bronch iectasis noted.F/U prn [...] outside provider on resul ts of the [place], Lambda and kappa/lambda serum ratio. Discussed they [...] order in scan ed documents--Dr. Pandya at [facility] ordered the test for diagnosis of [...] and/or coordi nating care for the patient. Hoje-su-qwew time was at least 45 minutes. MD bony Rodríguez on 2020-01-27 CNPN Telephone (INTMWS) Normal 01-27-2020 [place] ANA Caro ([id number]) 1940 [facility] Date Time Provider Department (06238) 01/27/20 ALICIA BLOUNT INTMWS During your visit [...] notify nurse please? Please advise Clarence Berry APRN.LOAN DOCUMENTS CLOSER 01/27/2020 10:56 AM Addendum need supplements added below frequency, route - daily oral? Should be taking these medic ations unless discontinued by provider: sumatriptan as needed (Alicia Blount MD) and cephalexin (Dr. Don) . See office encounter this date. Juana Muro LPN 01/27/2020 4:11 PM Signed Reviewed supplements, added to Med list with [facility] Nurse. Advised of below recommendat ion, she [...] using ABRAM: No Authorizing Provider: CLARENCE BERRY (LOAN DOCUMENTS CLOSER) Cranberry-Vitamin C-Vitamin E (CRANBERRY PLUS VITAMIN C) [...] Diarrhea METFORMIN 05/10/2011 6 - Diarrhea NEOSPORIN (EOGGNUVA-TJCZFOLTMJ-BG*08/31/2008 2 - Rash Comments: blisters PROTONIX (PANTOPRAZOLE) [...] Status:Closed by ALICIA BLOUNT MD on 01/27/20 [facility] Telephone (INTMWS) Normal 01-27-2020 [place] ANA Caro ([id number]) 1940 [facility] Date Time Provider Department ([id number]) 01/27/20 ALICIA BLOUNT INTMWS During your visit today, we recorded the following informati on about you: Chelsy Vogel RN 01/27/2020 3:42 PM Signed [facility] Speech Therapist Melva #[phone], calls to report breanna n of care for patient. She will visit amna ent 1 x week one and 2 times 2 weeks to assist with compensatory strategies of word finding. No need to call back if agreeable. Chelsy Berry, UNPAID INTERN.LOAN DOCUMENTS CLOSER 01/27/2020 3:53 PM Signed OK Allergies As [...] Diarrhea METFORMIN 05/10/2011 6 - Diarrhea NEOSPORIN (LIOSGGPV-OQIXNWTPWW-OV*08/31/2008 2 - Rash Comments: blisters PROTONIX (PANTOPRAZOLE) [...] 2020-01-27 [facility] Office Visit (INTMWS) Normal 01-27-20 [place] [facility] ANA IVORY ([id number]) 1940 [place] Date Time Provider Department ([id number]) 01/27/20 8:40 AM ALICIA BLOUNT INTMWS During your visit today, we recorded the following informati on about you: Pulse Respiration Blood pressure Weight 68/minute 20/minute 140/70 59 kg Alicia Blount MD 01/27/2020 4:59 PM Signed This note was created using [employer]. Subjective Ana Ivory is a 79 year [...] appointment with Dr. Nacho Munguia (Endocrinology at [facility]) at the end of this month. [...] C. difficile diarrhea 10/18/2011 - Cataract 04/17/2013 [facility], Dr. Dada johnson Mild cataract in L eye- no need for cataract surgery at this time. Continue to follow up the cat aract. 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 At thi s time, we anticipate that the patient will be discharged home once c linically stable. Plan: - Discuss needs with patient. - Collaborate with Case management to facilitate DC process - Will continue to evaluate during the post op period. - Desat study 11/14/14: patient will need home oxygen (2 L with exertion only) - Discharge home today with [facility] care for assistance with chest tube to [...] by mouth twice daily. (Dr Don) - [employer] [facility] [facility] (E08.40, Z79.4) Diabetes mellitus [...] les by mouth once daily. - Insulin [place], Disposable, (EASY CARROL CH) 31 gauge x [...] Negative Negative Ketones, Urine Negative Negative Specific [place], Ur 1.005 - 1.030 1.014 Hemoglobin/Blood,Ur Negative [...] Ratio <30 mg/g 668 (H) Not calculated [place] Free, Serum 3.30 - 19.40 mg/L 19.8 [...] ICD-10-CM 1. 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 2. 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, with long-term current use of insulin ([facility]) E08.40 Z79.4 3. Essential hypertension I10 Fair [...] after appt, reviewed last progress note with SCHOOL CROSSING GUARD SUPERVISOR and diagnosis of Bronchiectasis noted.F/U prn Though [...] with outside provider on results of the [place], Lambda and kappa/lambda serum ratio. Discussed they [...] order in scanned documents--Dr. Anshul britton at [facility] ordered the test for diagnosis of polyneuropathy) [...] counseling and/or coordinating care for the patient. Odsm-to-kjmm time was at least 45 minutes. Alicia Blount MD Referring Provider: CLARENCE BERRY (LOAN DOCUMENTS CLOSER) [[id number]] Allergies As of Date: 01/27/2020 Noted Allergy [...] Diarrhea METFORMIN 05/10/2011 6 - Diarrhea NEOSPORIN (FUXZWBTP-LGOKJHURFO-UO*08/31/2008 2 - Rash Comments: blisters PROTONIX (PANTOPRAZOLE) 01/13/2010 6 - Diarrhea RELAFEN (NABUMETONE) 03/22/2006 8 - GI Upset 11 - Vomiting ACTOS (PIOGLITAZONE HCL) 12/03/2016 7 - Swelling Date Reviewed: 01/27/2020 Reviewed by: Cintia Macias LPN - Fully Assessed Reason for Visit: Follow Up [171] Primary Visit Diagnosis:Stroke determine d by clinical assessment ([facility]) [I63.9] Comment:Left hemispheric stroke with right sided weakness.Gait instability and word finding problems noted. Other Visit Diagnoses:Diabetes 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 co ndition with diabetic neuropathy, with long-term current use of insulin ([facility]) [E08.40, Z79.4] Essential hypertension [I10] Comment:Fair control [...] after appt, reviewed last progress note with SCHOOL CROSSING GUARD SUPERVISOR and diagnosis of Bronchiectasis noted.F/U prn Order(s):ketoconazole [...] Status:Closed by ALICIA BLOUNT MD on 01/27/20 [facility] (INTMWS) Normal 01-26-2020 [place] [facility] ANA IVORY ([id number]) 1940 [facility] Date Time Provider Department (58508) 01/26/20 ALICIA BLOUNT INTMWS During your visit today, we recorded the following informati on about you: Mansi Preston REMOTE OPERATIONS PRODUCER 01/26/2020 2:29 PM Signed Jannette Blair from [facility] Home Health OT plan of care 2 vis its weekly for 3 weeks working on ADL, strengthening, hand writing. Clarence Berry APRN.LOAN DOCUMENTS CLOSER 01/26/2020 2:41 PM Signed [place], see below [...] Diarrhea METFORMIN 05/10/2011 6 - Diarrhea NEOSPORIN (QGOKVBFO-XCTTZKNYBR-FJ*08/31/2008 2 - Rash Comments: blisters PROTONIX (PANTOPRAZOLE) 01/13/2010 6 - Diarrhea RELAFEN (NABUMETONE) 03/22/2006 8 - GI Upset 11 - Vomiting ACTOS (PIOGLITAZONE HCL) 12/03/2016 7 - Swelling Date Reviewed: 01/08/2020 Reviewed by: Isabela Mendoza Lead Web Developer - Fully Assessed Reason for Visit: OT [...] Status:Closed by CINTIA MACIAS LPN on 01/27/20 [facility] Telephone ([facility]) Normal 01-26-2020 [facility] ANA IVORY ([id number]) 1940 [facility] Time Provider Department ([id number]) 01/26/20 ALICIA BLOUNT During your visit today, [...] calling: self Call patient at: on cell [phone] (home) [phone] (cell) Was an appointment scheduled: No Closing statement: Results or non-symptom based questions: Thank you for calling [facility], your call will be returned within the next business day. Libertad Anthonying Pss Isabela Hernandez Rosalbadal Lead Web Developer 01/26/2020 3:32 PM Signed Looks like patient has one touch device. Unsure what micro lancets to choose. Please advise. Thank you. Clarence Berry APRN.LOAN DOCUMENTS CLOSER 01/27/2020 8:13 AM Signed Rx sent Allergies [...] Diarrhea METFORMIN 05/10/2011 6 - Diarrhea NEOSPORIN (UCPRQQPT-YGACAMDWLD-AX*08/31/2008 2 - Rash Comments: blisters PROTONIX (PANTOPRAZOLE) 01/13/2010 6 - Diarrhea RELAFEN (NABUMETONE) 03/22/2006 8 - GI Upset 11 - Vomiting ACTOS (PIOGLITAZONE HCL) 12/03/2016 7 - Swelling Date Reviewed: 01/08/2020 Reviewed by: Isabela Mendoza Lead Web Developer - Fully Assessed Reason for Visit: lancets [...] 25 Hydroxy 43.5 31.0-80.0 ng/mL Normal 0 [facility] (38085) Comment: Result Comment: Classificati on of 25 [place] Vitamin D status: Insufficiency/Moderate Defic iency: < or = 30 ng/mL Sufficiency/Optimal Levels: 31 to 80 ng/mL Toxicity: > 100 ng/mL Test performed by chemilumin escent immunoassay. Performed By: #### FT4, TSH, HBA1C, VITD ####[facility] [address] levelandBenjamin [place] [phone] vitamin b12 on 2019 Cobalamin (Vitamin B12) 332 092-0404 pg/mL Normal 2019 [facility] [Mass/Vol] [place] (34564) Comment: Performed By: #### B12, SERF OL, KLFRS ####[facility]Cuniversity hospitals cle[facility] medical centerandJeremy [place]ille [address] [phone] urinalysis with microscopic on 2020-01-22 Bilirubin, Urine Negative Negative Normal 01-22-2020 [facility] (44865) Comment: Performed By: #### UAWMIC ## ##[facility]ClevelandBenjamin [place] [phone] Clarity (U) Slightly Cloudy Clear Critically abnormal [facility] (46222) Comment: Performed By: #### UAWMIC ## ##[facility] [address]levelandBen[place] [phone] Color (U) Light Yellow Yellow Critically abnormal 020 [facility] (20283) Comment: Performed By: #### UAWMIC ## ##[facility]leveland[address] [place] [phone] Comments SEE COMMENT Normal 01-22-2020 [facility] (09005) Comment: Result Comment: N/A Performed By: #### UAWMIC ## ##[facility] [place] [phone] Epithelial cells LM.HPF SEE COMMENT Normal 01-11 [facility] (Urine sed) [#/Area] [place] (08761) Comment: Result Comment: Few Squamous Epithelial Cells Performed By: #### UAWMIC ## ##[facility]levelandBen[address] [place] [phone] Glucose Ql (U) Negative Negative Normal 01-22-2020 [facility] (59940) Comment: Performed By: #### UAWMIC ## ##[place] [address] [address]CLor[address], [place] [phone]- [phone] Hemoglobin/Blood,Ur Negative Negative Normal 01-22-2020 [facility] (02402) Comment: Performed By: #### UAWMIC ## ##[place] [address] [address], [place] [phone]- [phone] Ketones Ql (U) Negative Negative Normal 01-22-2020 [facility] (26964) Comment: Performed By: #### UAWMIC ## ##[place] [address] [address], [place] [phone]- [phone] Leukest 2+ Negative Critically abnormal 01-22-2020 [facility] (55198) Comment: Performed By: #### UAWMIC ## ##[place] [address] [address], [place] [phone]- [phone] Nitrite Ql (U) Negative Negative Normal 01-22-2020 [facility] (02595) Comment: Performed By: #### UAWMIC ## ##[place] [address] [address] [facility] Healthcare[facility], [place] [phone]- [phone] pH (Bld) 6.0 5.0-8.0 Normal 01-22-2020 [facility] (66965) Comment: Performed By: #### UAWMIC ## ##[place] [address] [address], [place] [phone]- [phone] Protein (U) [Mass/Vol] Negative Negative mg/dL Normal 020 [facility] (35053) Comment: Performed By: #### UAWMIC ## ##[place] [address] [address], [place] [phone]- [phone] RBC (U) [#/Vol] 0-3 0-3 Normal 01-22-2020 [facility] (74240) Comment: Performed By: #### UAWMIC ## ##[facility]Ben[place] [phone] Specific [place], Ur 1.014 1.005-1.030 Normal 020 [facility] (78734) Comment: Performed By: #### UAWMIC ## ##[facility] [phone] Urine Sam Comment SEE COMMENT Normal 01-22-2020 [facility] (13738) Comment: Result Comment: N/A Performed By: #### UAWMIC ## ##[place] [address] [address] [place] [phone]- [phone] Urobilinogen Qn (U) Negative Negative Normal 01-22-2020 [facility] (09432) Comment: Performed By: #### UAWMIC ## ##[place] [address] [address] [phone]- [phone] WBC (Bld) [#/Vol] 6-10 0-5 Critically abnormal [facility] ([id number]) Comment: Performed By: #### UAWMIC ## ##[place] [address] [place] [phone] tsh on 2020-01-22 TSH Qn 3.670 0.270-4.200 uU/mL Normal 01-22-2020 [facility] ([id number]) Comment: Performed By: #### FT4, TSH, HBA1C, VITD ####[facility] levelandBenjamin [place] [phone] kappa/abraham,free,ser on 2020-01-22 K/L Ratio, Serum 1.69 0.26-1.65 High 01-22-2020 [facility] (17860) Comment: Performed By: #### B12, SERF OL, KLFRS ####[facility]ClevelLisa Ville [address] [phone] [place], Free, Serum 19.8 3.30-19.40 mg/L High 01-22-2020 [facility] (33004) Comment: Result Comment: Test perform ed by an immunoturbidimetric assay on Optilite instrument from [facility] . Immunoglobulin free light chain assay results should be interpreted in con junction with other tests and in correlation with clinical picture. Performed By: #### B12, SERF OL, KLFRS ####[facility]CSheila [place] [address] [phone] Lambda, Free, Serum 11.7 5.7-26.3 mg/L Normal 01-22-2020 [facility] (44096) Comment: Result Comment: Test perform ed by an immunoturbidimetric assay on Optilite instrument from [facility] . Immunoglobulin free light chain assay results should be interpreted in con junction with other tests and in correlation with clinical picture. Performed By: #### B12, SERF OL, KLFRS ####[place] [address]CSheila [place] [address] [phone] hemoglobin a1c on 2 HbA1c (Bld) [Mass fraction] 7.2 4.3-5.6 % High [facility] (47210) Comment: Result Comment: [place] Edilma betes Association guidelines indicate that patients with HgbA1c in the range 5.7-6.4% are at increased risk for development of diabetes, and intervention by lifestyle modification may be beneficial. HgbA1c greater o r equal to 6.5% is considered diagnostic of diabetes. Performed By: #### FT4, TSH, HBA1C, VITD ####[facility] [place], [place] [phone] HbA1c (Bld) [Mass fraction] 160 mg/dL Normal [facility] (91060) Comment: Result Comment: eAG: (Estima amando average glucose) is a calculated value from HgbA1c and is parts counter representative of the average blood glucose level in the last 2-3 month period. Performed By: #### FT4, TSH, HBA1C, VITD ####[facility] [address] [place], [place] [phone] free t4 on Free T4 [Mass/Vol] 1.1 0.9-1.7 ng/dL Normal 01-22-2020 [facility] (29318) Comment: Performed By: #### FT4, TSH, HBA1C, VITD ####[facility] [address] [place], [place] [phone] folate, serum on 30-01-11 Folate [Mass/Vol] 13.8 >4.7 ng/mL Normal 01-22-2020 [facility] (68556) Comment: Performed By: #### B12, SERF OL, KLFRS ####[facility] [address], [place] [phone] comp metabolic panel on 2020-01-22 Albumin [Mass/Vol] 4.3 3.9-4.9 g/dL Normal 01-22-2020 [facility] (13590) ALP [Catalytic 83 34-123 U/L Normal 01-22-2020 [facility] activity/Vol] [place] and (50060) ALT [Catalytic 14 7-38 U/L Normal 01-22-2020 [facility] activity/Vol] [place] and (98481) Anion gap 9 9-18 mmol/L Normal 01-22-2020 [facility] [Moles/Vol] Clevelan d (52116) AST [Catalytic 14 13-35 U/L Normal 01-22-2020 [facility] activity/Vol] [place] and (78056) Bilirubin [Mass/Vol] 0.4 0.2-1.3 mg/dL Normal 0 [facility] (13752) Calcium [Mass/Vol] 9.3 8.5-10.2 mg/dL Normal 01-22-2020 [facility] (44677) Chloride [Moles/Vol] 103 97-105 mmol/L Normal 0 [facility] (75591) CO2 [Moles/Vol] 27 22-30 mmol/L Normal 01-22-2020 [facility] (14401) Creatinine 0.61 0.58-0.96 mg/dL Normal 01-22-2020 [facility] [Mass/Vol] [place] (04873) eGFR- Amer. >60 Normal 01-22-2020 [facility] (86377) GFR/1.73 sq M >60 mL/min/{1.73_m Normal 01-22-2020 [facility] predicted among 2} [place] (34064) non-blacks MDRD (S/P/Bld) [Vol rate/Area] Comment: Result [...] Glucose [Mass/Vol] 168 74-99 mg/dL High 01-22-2020 [facility] (90969) Comment: Result Comment: The [place] Diabetes Association (ADA) provides guidance for cutoff [...] for diagnosis of diabetes. Reference: Standards of [facility] Care in Diabetes 2016, [place] Diabetes Association. Diabetes Care. 2016.39(Suppl 1). Potassium [Moles/Vol] 4.2 3.7-5.1 mmol/L Normal 01-22-20 20 [facility] (23190) Protein [Mass/Vol] 7.2 6.3-8.0 g/dL Normal 01-22-2020 [facility] (28416) Sodium [Moles/Vol] 139 136-144 mmol/L Normal 01-22-2020 [facility] (00625) Urea nitrogen [Mass/Vol] 12 7-21 mg/dL Normal 01-21 [facility] (84506) cbc on 2020-01-22 Absolute nRBC <0.01 <0.01 Normal 01-22-2020 [facility] (04097) Erythrocyte distribution 12.7 11.5-15.0 % Normal 01-21 [facility] width (RBC) [Ratio] [place] (90455) Hematocrit (Bld) [Volume 38.1 36.0-46.0 % Normal 01-21 [facility] fraction] [place] (05728) Hemoglobin (Bld) 13.2 11.5-15.5 g/dL Normal 01-22-2020 [facility] [Mass/Vol] [place] (84242) MCH (RBC) [Entitic mass] 31.2 26.0-34.0 pG Normal 01-21 [facility] (02219) MCHC (RBC) [Mass/Vol] 34.6 30.5-36.0 g/dL Normal 01-22-20 20 [facility] (66774) MCV (RBC) [Entitic vol] 90.1 80.0-100.0 fL Normal 01-21 [facility] (99386) Platelet mean volume 9.4 9.0-12.7 fL Normal 0 [facility] (Bld) [Entitic vol] [place] (45511) Platelets (Bld) [#/Vol] 219 150-400 k/uL Normal 2019 [facility] (58929) RBC (Bld) [#/Vol] 4.23 3.90-5.20 m/uL Normal 01-22-2020 [facility] (25578) WBC (Bld) [#/Vol] 5.65 3.70-11.00 k/uL Normal 01-22-2020 [facility] (11910) albumin/creat ratio on 2020-01-22 Albumin Urine Random <12.0 Normal 0 [facility] (00712) Comment: Performed By: #### UACR #### [facility] [address] [place], [place] [phone] Albumin/Creat Ratio Not calculated <30 Normal 01-21 [facility] (05713) Comment: Performed By: #### UACR #### [facility] [address] [place], [place] [phone] Creatinine,Urine,Ran 68.1 20-300 mg/dL Normal 0 [facility] (66600) Comment: Performed By: #### UACR #### [facility] [place], [place] [phone] cnpn on 2020-01-21 CNPN Telephone (INTMWS) Normal 01-21-2020 [place] [facility] ANA IVORY ([id number]) 1940 [facility] Date Time Provider Department () 01/21/20 ALICIA BLOUNT INTMWS During your visit today, we recorded the following informati on about you: Minor Zamora 01/21/2020 1:45 PM Signed Malrene Osorio / [facility] PT calls with plan of care. 2x [...] Diarrhea METFORMIN 05/10/2011 6 - Diarrhea NEOSPORIN (WZEOJIGE-OXGGPPNYPA-JZ*08/31/2008 2 - Rash Comments: blisters PROTONIX (PANTOPRAZOLE) 01/13/2010 6 - Diarrhea RELAFEN (NABUMETONE) 03/22/2006 8 - GI Upset 11 - Vomiting ACTOS (PIOGLITAZONE HCL) 12/03/2016 7 - Swelling Date Reviewed: 01/08/2020 Reviewed by: Isabela Mendoza Lead Web Developer - Fully Assessed Reason for Visit: PT [...] DEVINE LPN on 01/21/20 nemesion on [facility]) Normal 01-20-2020 [place] ANA Caro ([id number]) 1940 [place] [facility] Date Time Provider Department (05323) 01/20/20 ALICIA BLOUNT INTMWS During your visit today, we recorded the following informati on about you: Chelsy Vogel RN 01/20/2020 10:09 AM Signed Granddaughter Coby calls- Requests referral to endocr inology as sugars more out of control recently. Would like patient to see Dr. Munguia at [facility], please fax to #[phone]. Please review and advise. MANNY Santamaria MD 01/20/2020 10:20 AM Signed Filed order Noted granddaughter requested referral to Dr. Munguia. Have patient let me know how sugars are doing as well. Mansi Preston REMOTE OPERATIONS PRODUCER 01/20/2020 10:48 AM Signed Phoned grand daughter [...] Diarrhea METFORMIN 05/10/2011 6 - Diarrhea NEOSPORIN (ASCAWQFF-FACHKKOUSO-PJ*08/31/2008 2 - Rash Comments: blisters PROTONIX (PANTOPRAZOLE) 01/13/2010 6 - Diarrhea RELAFEN (NABUMETONE) 03/22/2006 8 - GI Upset 11 - Vomiting ACTOS (PIOGLITAZONE HCL) 12/03/2016 7 - Swelling Date Reviewed: 01/08/2020 Reviewed by: Isabela Mendoza Lead Web Developer - Fully Assessed Reason for Visit: endocrinology consult [Other] Primary Visit Diagnosis:Type 2 diabetes mellitus without c omplication, with long-term current use of insulin ([facility]) [E11.9, Z79.4] Other Visit Diagnosis:Type 2 diabetes mellitus with hypergly cemia, with long-term current use of insulin ([facility]) [E11.65, Z79.4] Order(s):CONSULT TO ENDOCRINOLOGY [9007] Order #: [id number] Qty: 1 FUTURE Prescriptions as of 01/20/2020 [...] 01/20/20 progress on 2019-12 PROGRESS HNO ID: [id number] Normal 01-08-2020 [facility] Author: Alicia Blount [place] ([id number]) Service: ? Author Type: Physician Type: Progress Notes Filed: 01/19/2020 12:04 AM Note Text: This note was created using [employer]. Subjective Ana Ivory is a 79 year [...] to presenting in e emergency department at [facility]. Also noticed decre ased ability to control [...] visit. TRANSITION CARE MANAGEMENT (TCM) INITIAL CONTACT Senior Validation Engineer Outreach Provider Action/FYI: Initial contact with patient post discharge, spoke to myrtle sumner Patient identified by name and . TRANSITION CARE MANAGEMENT INITIAL OUTREACH DOCUMENTATION: Date of Outreach: 01/06/2020 Outreach Attempt 1: Contact Made Date of Discharge 01/03/2020 Some recent data might be hidden SUMMARY: -Pt discharged from [facility] on 01/03/20. -Admitted for: CVA Do you [...] C. difficile diarrhea 10/18/2011 - Cataract 04/17/2013 [facility], Dr. Dada Rodríguez. Mild cataract in L eye- no need for cataract surgery at this time. Continue to follow u p the cataract. 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 At thi s time, we anticipate that the patient will be discharged home once cli nically stable. Plan: - Discuss needs with patient. - [facility] to facilitate DC process - [...] daily. (Dr Don) - Miscellaneous Medical [employer] [facility] Custom Orthotics (E08.40 , Z79.4) Diabetes mellitus [...] s by mouth once daily. - Insulin [place], Disposable, (EASY TOUCH) 31 gauge x 3/16 [...] ICD-10-CM 1. Stroke determined by clinical assessment ([facility]) I63.9 Left hemispheric with right sided weakness [...] with long- term current use of insulin ([facility]) E11.9 Z79.4 Discussed hospital stay and evaluation [...] and/or coordi nating care for the patient. Vfyo-fi-jnnx time was at least 40 minutes. Alicia Blount MD PROGRESS HNO ID: [id number] Normal 01-08-2020 [facility] Author: Alicia Blount [place] ([id number]) Service: ? Author Type: Physician Type: Progress Notes Filed: 01/08/2020 8:53 AM Note Text: Below noted cnov on 2020-01-08 CNOV Office Visit (INTMWS) Normal 01-07-20 20 [place] [facility] ANA IVORY ([id number]) 1940 [facility] Date Time Provider Department (78406) 01/08/20 9:00 AM ALICIA BLOUNT INTMWS During your visit today, we recorded the following informati on about you: Temperature Pulse Respiration Blood pressure 96 degrees 70/minute 16/minute 110/78 Weight 58.5 kg Alicia Blount MD 01/19/2020 12:04 AM Signed This note was created using [employer]. Subjective Ana Ivory is a 79 year [...] presenting in the emergency departmen t at [facility]. Also noticed decreased ability to control her [...] visit. TRANSITION CARE MANAGEMENT (TCM) INITIAL CONTACT Senior Validation Engineer Outreach Provider Action/FYI: Initial contact with patient post discharge, spoke to myrtle sumner Patient identified by name and . TRANSITION CARE MANAGEMENT INITIAL OUTREACH DOCUMENTATION: Date of Outreach: 01/06/2020 Outreach Attempt 1: Contact Made Date of Discharge 01/03/2020 Some recent data might be hidden SUMMARY: -Pt discharged from [facility] on 01/03/20. -Admitted for: CVA Do you [...] C. difficile diarrhea 10/18/2011 - Cataract 04/17/2013 [facility], Dr. Dada johnson Mild cataract in L eye- no need for cataract surgery at this time. Continue to follow up the cat aract. 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 At thi s time, we anticipate that the patient will be discharged home once c linically stable. Plan: - Discuss needs with patient. - Collaborate with Case management to facilitate DC process - Will continue to evaluate during the post op period. - Desat study 11/14/14: patient will need home oxygen (2 L with exertion only) - Discharge home today with [facility] care for assistance with chest tube to [...] by mouth twice daily. (Dr Don) - Tooth [employer] [facility] Custom Ortho tics (E08.40, Z79.4) Diabetes mellitus [...] les by mouth once daily. - Insulin [place], Disposable, (EASY CARROL CH) 31 gauge x [...] ICD-10-CM 1. Stroke determined by clinical assessment ([facility]) I63.9 Left hemispheric with right sided weakne [...] counseling and/or coordinating care for the patient. Smuo-et-dobp time was at least 40 minutes. Alicia Blount MD Referring Provider: ALICIA BLOUNT [[id number]] Allergies As of Date: 01/08/2020 Noted Allergy [...] Diarrhea METFORMIN 05/10/2011 6 - Diarrhea NEOSPORIN (WNZJRXRE-[id number]-BD*08/31/2008 2 - Rash Comments: blisters PROTONIX (PANTOPRAZOLE) 01/13/2010 6 - Diarrhea RELAFEN (NABUMETONE) 03/22/2006 8 - GI Upset 11 - Vomiting ACTOS (PIOGLITAZONE HCL) 12/03/2016 7 - Swelling Date Reviewed: 01/08/2020 Reviewed by: Isabela Mendoza Lead Web Developer - Fully Assessed Reason for Visit: Transition Of Care [4074] Primary Visit Diagnosis:Stroke determine d by clinical assessment ([facility]) [I63.9] Comment:Left hemispheric with right sided weakness [...] complication, with long-term current use of insulin ([facility]) [E11.9, Z79.4] Order(s):atorvastatin (LIPITOR) 20 mg tabletTake [...] on 2020-01-08 CNCO Letter Text Normal 01-08-2020 [facility] (69368) progress on 2019-12 PROGRESS HNO ID: [id number] Normal 01-06-2020 [facility] Author: Alicia Blount [place] ([id number]) Service: ? Author Type: Physician Type: Progress Notes Filed: 01/08/2020 8:53 AM Note Text: TRANSITION CARE MANAGEMENT (TCM) INITIAL CONTACT Senior Validation Engineer Outreach Provider Action/FYI: Initial contact with patient post discharge, spoke to myrtle sumner Patient identified by name and . TRANSITION CARE MANAGEMENT INITIAL OUTREACH DOCUMENTATION: Date of Outreach: 01/06/2020 Outreach Attempt 1: Contact Made Date of Discharge 01/03/2020 Some recent data might be hidden SUMMARY: -Pt discharged from [facility] on 01/03/20. -Admitted for: CVA Do you [...] Refill (INTMWS) Normal 01-06-2020 [facility] ANA IVORY ([id number]) 1940 [facility] Date Time Provider Department (78956) 01/06/20 ALICIA BLOUNT INTMWS During your visit today, we recorded the following informati on about you: Mitzi Crystalel[facility] 01/06/2020 9:01 AM Signed Patient has been identified by name and date of : Yes Pending Prescriptions Disp Refills LORAZEPAM 1 MG TABLET 30 tablet 2 Sig: TAKE 1/2 TO 1 TABLET BY MOUTH EVERY DAY NEEDED FOR F OR ANXIETY BULL Class: C-IV ABRAM: No RX INSTRUCTIONS: Patient aware RX will be sent to pharmacy. No need to notify patient. Mitzi [facility] Juana Muro LPN 01/06/2020 11:36 AM Signed [...] Diarrhea METFORMIN 05/10/2011 6 - Diarrhea NEOSPORIN (ESIVBXLZ-DCKQNHGNFF-YG*08/31/2008 2 - Rash Comments: blisters PROTONIX (PANTOPRAZOLE) [...] CNPTOUTREACH Patient Outreach (INTMWS) Normal 0 01-06-2020 [place] [facility] ANA IVORY ([id number]) 1940 [facility] Date Time Provider Department ([id number]) 01/06/20 ALICIA BLOUNT INTMWS During your visit today, we recorded the following informati on about you: Alicia Blount MD 01/08/2020 8:53 AM Signed TRANSITION CARE MANAGEMENT (TCM) INITIAL CONTACT Senior Validation Engineer Outreach Provider Action/FYI: Initial contact with patient post discharge, spoke to myrtle sumner Patient identified by name and . TRANSITION CARE MANAGEMENT INITIAL OUTREACH DOCUMENTATION: Date of Outreach: 01/06/2020 Outreach Attempt 1: Contact Made Date of Discharge 01/03/2020 Some recent data might be hidden SUMMARY: -Pt discharged from [facility] on 01/03/20. -Admitted for: CVA Do you [...] Diarrhea METFORMIN 05/10/2011 6 - Diarrhea NEOSPORIN (SSLQZEQQ-GECYMWYOKD-GY*08/31/2008 2 - Rash Comments: blisters PROTONIX (PANTOPRAZOLE) [...] BLOUNT MD on 01/08/20 cnpn on 2020-01-06 [facility] Normal 01-06-2020 [place] [facility] ANA IVORY ([id number]) 1940 [facility] Date Time Provider Department ([id number]) 01/06/20 ALICIA BLOUNT INTMWS During your visit today, we recorded the following informati on about you: Sahra Harman RN 01/06/2020 2:54 PM Signed Pt's family member called, verified pt by name a nd birthdate. They would like to have pt start home PT AND ST with [facility]. If PCP approves, please notify [facility]. Pt has apt with provider on 01-08-2020 Sahra Blount MD 01/07/2020 1:25 PM Signed Approve as requested Juana Muro LPN 01/07/2020 2:15 PM Signed Patient scheduled to see Dr. Blount, . Will send Order, Demographic sheet, Med list, Office notes to [phone]. Juana britton LPN Allergies As of Date: [...] Diarrhea METFORMIN 05/10/2011 6 - Diarrhea NEOSPORIN (TTTRUKNA-YIBAHCRLYV-DY*08/31/2008 2 - Rash Comments: blisters PROTONIX (PANTOPRAZOLE) [...] on 01/07/20 CNPN Telephone (INTMWS) Normal 01-06-2020 [place] [facility] ANA IVORY ([id number]) 1940 [facility] Date Time Provider Department (77639) 01/06/20 ALICIA BLOUNT INTErisWS During your visit [...] Diarrhea METFORMIN 05/10/2011 6 - Diarrhea NEOSPORIN (MCIIRPAJ-OHBXNYKLNJ-QJ*08/31/2008 2 - Rash Comments: blisters PROTONIX (PANTOPRAZOLE) [...] OBSOLETE Refill (INTMWS) Normal 12-03-2019 Mannie mancini [facility] ERIKANA LOWE Summer ([id number]) 1940 [facility] Date Time Provider Department (13750) 12/03/19 ALICIA BLOUNT INTMWS During your visit [...] Diarrhea METFORMIN 05/10/2011 6 - Diarrhea NEOSPORIN (GJUGGPAR-VKXUGJUUFH-YS*08/31/2008 2 - Rash Comments: blisters PROTONIX (PANTOPRAZOLE) [...] on 2019-10-28 CNPN Telephone (INTMWS) Normal 10-28-2019 [facility] ANA IVORY ([id number]) 1940 [facility] Date Time Provider Department (70463) 10/28/19 ALICIA BLOUNT INTVENKAT During your visit [...] Diarrhea METFORMIN 05/10/2011 6 - Diarrhea NEOSPORIN (CMNSLQEK-JXSIFHRQGE-LW*08/31/2008 2 - Rash Comments: blisters PROTONIX (PANTOPRAZOLE) [...] * *Final Report* * * Normal 10-24-2019 [place] AP/LAT/LOJA DATE OF EXAM: Oct 24 2019 11:23AM Clinic WOX 5329 - XR FACIAL BONES 3V AP/LAT/LOJA / [id number] [place] PROCEDURE REASON: multiple diagnoses (57073) * * * * Physician Interpretation * [...] occult frac ture. IMPRESSION: No Acute Fracture. Wet Process Assistant Head Miller: PSCB Transcribe Date/Time: Oct 24 2019 11:42A Dictated by : MANSI KOROMA MD This examination was interpreted and the report reviewed and electronically signed by: MANSI KOROMA MD on Oct 24 2019 11:43AM EST [id number] progress on 2019-10 PROGRESS HNO ID: [id number] Normal 10-24-2019 [facility] Author: Juanita StacyRt) Jessica Leiva [place] ([id number]) Service: ? Author Type: Electronics Engineering Manager Type: Progress Notes Filed: 10/24/2019 11:24 AM [...] 24, 2019 11:10 AM PROGRESS HNO ID: [id number] Normal 10-24-2019 [facility] Author: Alicia Blount [place] ([id number]) Service: ? Author Type: Physician Type: Progress Notes Filed: 10/27/2019 5:40 PM Note Text: This note was created using [employer]. Subjective Ana Ivory is a 79 year old female. Patient presents with: Recheck: 3 month follow up SUBJECTIVE: Ana Ivory is a 79 year old year old lady here today f or 3 month follow up appointment for review of medical conditions. Ongoing balance issues. 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 No problems with breathing through nares at this time. Discussed AETPP74--dmatrtva wanted her to not go out. Lung history reviewed plus age and DM. Needs cough med prn. No adverse effects. 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 difficile diarrhea 10/18/2011 - Cataract 04/17/2013 [facility], Dr. Dada Rodríguez. Mild cataract in L eye- no need for cataract surgery at this time. Continue to follow u p the cataract. 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 At thi s time, we anticipate that the patient will be discharged home once cli nically stable. Plan: - Discuss needs with patient. - [facility] management to facilitate DC process - Will continue to evalu ate during the post op period. - Desat study 11/14/14: patient will need home oxygen (2 L with exertion only) - Discharge home today with home ca re for assistance with chest tube to [facility]. Return to [facility] on Sun11/18/[address] [...] by mouth twice daily. (Dr Don) - Tooth Bank[employer] [facility] Custom Orthotics (E08.40 , Z79.4) Diabetes mellitus [...] s by mouth once daily. - Insulin [place], Disposable, (EASY TOUCH) 31 gauge x 16 [...] and/or coordi nating care for the patient. Tber-hf-aogg time was at least 35 minutes. MD bony Rodríguez on 2019-10-24 CNPN Telephone (INTMWS) Normal 10-24-2019 [place] ANA Caro ([id number]) 1940 [facility] Date Time Provider Department (67927) 10/24/19 ALICIA BLOUNT INTMWS During your visit today, we recorded the following informati on about you: Breonna Trent, RN, RN 10/24/2019 4:09 PM Signed Pt calls requesting results of xray from today. Clarence Berry APRN.LOAN DOCUMENTS CLOSER 10/24/2019 4:32 PM Signed No acute fracture [...] Diarrhea METFORMIN 05/10/2011 6 - Diarrhea NEOSPORIN (EWDORZOO-WOSXBHLUXJ-AP*08/31/2008 2 - Rash Comments: blisters PROTONIX (PANTOPRAZOLE) [...] 2019-10-24 CNOV Office Visit (INTMWS) Normal 10-24-19 [place] ANA IVORY ([id number]) 1940 [facility] Date Time Provider Department ([id number]) 10/24/19 9:20 AM ALICIA BLOUNT During your visit today, we recorded the following informati on about you: Alicia Blount MD 10/27/2019 5:40 PM Signed This note was created using TrustCloud. Subjective Ana Ivory is a 79 year old female. Patient presents with: Recheck: 3 month follow up SUBJECTIVE: Ana Ivory is a 79 year old year old lady here today for 3 month follow up appointment for review of medical conditions. Ongoing balance issues. 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 No problems with breathing through nares at this time. Discussed BVLDL93--jcywfziy wanted her to not go out. Lung history reviewed plus age and DM. Needs cough med prn. No adverse effects. 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 difficile diarrhea 10/18/2011 - Cataract 04/17/2013 [facility], Dr. Dada johnson Mild cataract in L eye- no need for cataract surgery at this time. Continue to follow up the cat aract. 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 At thi s time, we anticipate [...] daily. (Dr Don) - Miscellaneous Medical Supply [facility] Ortho tics (E08.40, Z79.4) Diabetes mellitus [...] les by mouth once daily. - Insulin [place], Disposable, (EASY CARROL ) 31 gauge x [...] counseling and/or coordinating care for the patient. Dktb-rz-jrjw time was at least 35 minutes. Alicia [...] Diarrhea METFORMIN 05/10/2011 6 - Diarrhea NEOSPORIN (ZLIRFDAJ-AEWFZJMVUF-HD*08/31/2008 2 - Rash Comments: blisters PROTONIX (PANTOPRAZOLE) [...] Hair thinning [L65.9] Order(s):mirabegron (MYRBETRIQ) 50 mg [id number] 1 tablet by m out twice daily.Disp: Rfl: XR FACIAL BONES 3V AP/LAT/LOJA [[id number]] Order #: [id number] FUTURE codeine-guaiFENesin (VIRTUSSIN AC) 10-100 mg/5 [...] 11 URINALYSIS WITH MICROSCOPIC [SQUAWMIC] Order #: [id number] F UTURE ALBUMIN/CREAT RATIO RND UR [SQUACR] Order #: [id number] FUTU RE HGB A1C [PMRHW2A] Order #: [id number] FUTURE COMP METABOLIC PANEL [SQCMP] Order #: [id number] FUTURE CBC [SQCBC] Order #: [id number] FUTURE VITAMIN D 25 HYDROXY [SQVITD] Order #: [id number] FUTURE TSH BLD [SQTSH] Order #: [id number] FUTURE T4 FREE/FREE THYROX [SQFT4] Order #: [id number] FUTURE Prescriptions as of 10/24/2019 Sig: CODEINE [...] 25 Hydroxy 38.3 31.0-80.0 ng/mL Normal 0 [facility] (18002) Comment: Result Comment: Classificati on of 25 [place] Vitamin D status: Insufficiency/Moderate Defic iency: < or = 30 ng/mL Sufficiency/Optimal Levels: 31 to 80 ng/mL Toxicity: > 100 ng/mL Test performed by chemilumin escent immunoassay. Performed By: #### VITD, LIP B, HBA1C ####[place] [address] [phone] tsh on 2019-10-20 TSH Qn 4.160 0.270-4.200 uU/mL Normal 10-20-2019 [facility] (77829) Comment: Performed By: #### TSH ####[place] [phone] lipid panel, basic on 2019-10-20 Cholesterol [Mass/Vol] 167 <200 mg/dL Normal 020 [facility] (36375) Comment: Result Comment: <200 mg/dL, Desirable 200-239 mg/dL, Borderline hi gh >239 mg/dL, High Performed By: #### VITD, LIP B, HBA1C ####[place] [address] [phone] Cholesterol in HDL 54 >39 mg/dL Normal 10-20-2019 [facility] [Mass/Vol] (43389) Comment: Result Comment: 40-59 mg/dL, Acceptable >59 mg/dL, High: Negative ri sk factor for coronary heart disease <40 mg/dL, Low: Positive ris k factor for coronary heart disease Performed By: #### VITD, LIP B, HBA1C ####[place] [address] [phone] Cholesterol in LDL 90 <100 mg/dL Normal 10-20-2019 [facility] [Mass/Vol] [place] (93674) Comment: Result Comment: <100 mg/dL, Optimal 100-129 mg/dL, Near optimal/ above optimal 130-159 mg/dL, Borderline hi gh 160-189 mg/dL, High >189 mg/dL, Very high Secondary prevention optimal LDL Cholesterol levels are recommended to be < 70 mg/dL Performed By: #### VITD, LIP B, HBA1C ####[place] [id number] [place] [address] [phone] Fasting Time 10 hrs Normal 10-20-2019 [facility] (00420) Comment: Result Comment: Corrected on 10/19 AT 0916: Previously reported as 1 Performed By: #### VITD, LIP B, HBA1C ####[address] [place] [address] [phone] LDL:HDL Ratio 1.67 <2.54 Normal 10-20-2019 [facility] (50947) Comment: Result Comment: Reference: 1. National Cholesterol Educ ation Program ATP III Guideline At-A-Glance Quick Desk Reference: National Heart, Lung, and Blood [place]. National Institutes of Health. 2001: NIH Publication No. 01-3305. 2. An International Atherosc lerosis Society position paper: global recommendations for the management of dyslipidemia: executive summary, Atherosclerosis. 2014: 232(2):410-413. Performed By: #### VITD, LIP B, HBA1C ####[address] [place] [address] [phone] Non HDL Cholesterol 113 <130 mg/dL Normal 10-20-2019 [facility] (30513) Comment: Result Comment: <130 mg/dL, Optimal 130-159 mg/dL, Near optimal/ above optimal 160-189 mg/dL, Borderline hi gh 190-219 mg/dL, High >219 mg/dL, Very high Secondary prevention optimal non HDL Cholesterol levels are recommended to be < 100 mg/dL Performed By: #### VITD, LIP B, HBA1C ####[place] [id number] [place] [address] [phone] TC:HDL Ratio 3.09 <5.10 Normal 10-20-2019 [facility] (07728) Comment: Performed By: #### VITD, LIP B, HBA1C ####[place] [id number] [place] [address] Triglyceride [Mass/Vol] 115 <150 mg/dL Normal 2019 [facility] (33097) Comment: Result Comment: <150 mg/dL, Normal 150-199 mg/dL, Borderline hi gh 200-499 mg/dL, High >499 mg/dL, Very high Performed By: #### VITD, LIP B, HBA1C ####[place] [address] [address] [address] VLDL Cholesterol 23 <30 mg/dL Normal 10-20-2019 [facility] (18428) Comment: Performed By: #### VITD, LIP B, HBA1C ####[place] [address] [address] [address] [phone] hemoglobin a1c on 2 HbA1c (Bld) [Mass fraction] 7.4 4.3-5.6 % High [facility] (09689) Comment: Result Comment: [place] Edilma betes Association guidelines indicate that patients with HgbA1c in the range 5.7-6.4% are at increased risk for development of diabetes, and intervention by lifestyle modification may be beneficial. HgbA1c greater o r equal to 6.5% is considered diagnostic of diabetes. Performed By: #### VITD, LIP B, HBA1C ####[place] [address] [address] [place] [address] [phone] HbA1c (Bld) [Mass fraction] 166 mg/dL Normal [facility] (35412) Comment: Result Comment: eAG: (Estima amando average glucose) is a calculated value from HgbA1c and is parts counter representative of the average blood glucose level in the last 2-3 month period. Performed By: #### VITD, LIP B, HBA1C ####[place] [address] [address] [address] [phone] comp metabolic panel on 2019-10-20 Albumin [Mass/Vol] 4.1 3.9-4.9 g/dL Normal 10-20-2019 [facility] (91192) ALP [Catalytic 82 34-123 U/L Normal 10-20-2019 [facility] activity/Vol] [facility] and (83373) ALT [Catalytic 7 7-38 U/L Normal 10-20-2019 [facility] activity/Vol] [facility] (47864) Anion gap 10 9-18 mmol/L Normal 10-20-2019 [facility] [Moles/Vol] [facility] (48078[facility] AST [Catalytic 11 13-35 U/L Low 10-20-2019 [facility] activity/Vol] [facility] and (94505) Bilirubin [Mass/Vol] 0.3 0.2-1.3 mg/dL Normal 0 [facility] (29172) Calcium [Mass/Vol] 8.6 8.5-10.2 mg/dL Normal 10-20-2019 [facility] (86237) Chloride [Moles/Vol] 104 97-105 mmol/L Normal 0 [facility] (00899) CO2 [Moles/Vol] 26 22-30 mmol/L Normal 10-20-2019 [facility] (99577) Creatinine 0.61 0.58-0.96 mg/dL Normal 10-20-2019 [facility] [Mass/Vol] [place] (01573) eGFR- Amer. >60 Normal 10-20-2019 [facility] (60098) GFR/1.73 sq M >60 mL/min/{1.73_m Normal 10-20-2019 [facility] predicted among 2} [facility] (69537) non-blacks MDRD (S/P/Bld) [Vol rate/Area] Comment: Result [...] Glucose [Mass/Vol] 163 74-99 mg/dL High 10-20-2019 [facility] (73494) Comment: Result Comment: The [place] Diabetes Association (ADA) provides guidance for cutoff [...] for diagnosis of diabetes. Reference: Standards of [facility] Care in Diabetes 2016, [place] Diabetes Association. Diabetes Care. 2016.39(Suppl 1). Potassium [Moles/Vol] 3.7 3.7-5.1 mmol/L Normal 10-20-19 [facility] (93912) Protein [Mass/Vol] 6.6 6.3-8.0 g/dL Normal 10-20-2019 [facility] (95238) Sodium [Moles/Vol] 140 136-144 mmol/L Normal 10-20-2019 [facility] (97480) Urea nitrogen [Mass/Vol] 14 7-21 mg/dL Normal 10-19 [facility] (85123) cnpn on 2019-10-20 CNPN Telephone (FAMPWS) Normal 10-20-2019 [facility] ANA IVORY ([id number]) 1940 [facility] Date Time Provider Department (40461) 10/20/19 ALICIA BLOUNT FAMPWS During your visit today, we recorded the following informati on about you: Laura Marr REMOTE OPERATIONS PRODUCER 10/20/2019 10:58 AM Signed Pt calls to report she had labs done today. Pt i s requesting to get TSH added to orders. Pt told biological lab technician she wanted t his done and was advised they could do this if ordered test. Pt reports she has been losing a lot of hair lately. Laura Marr REMOTE OPERATIONS PRODUCER Riddhi Marie REMOTE OPERATIONS PRODUCER 10/20/2019 2:59 PM Signed Lab notified. 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]11/22/2018 Encounter Status:Closed by RIDDHI MAREI LPN on 10/20/19 cbc on 2019-10-20 Absolute nRBC <0.01 <0.01 Normal 10-20-2019 [facility] (41326) Erythrocyte distribution 13.2 11.5-15.0 % Normal 10-19 [facility] width (RBC) [Ratio] [place] (64689) Hematocrit (Bld) [Volume 38.3 36.0-46.0 % Normal 10-19 [facility] fraction] [place] (50237) Hemoglobin (Bld) 13.0 11.5-15.5 g/dL Normal 10-20-2019 [facility] [Mass/Vol] [place] (71024) MCH (RBC) [Entitic mass] 30.4 26.0-34.0 pG Normal 10-19 [facility] (45308) MCHC (RBC) [Mass/Vol] 33.9 30.5-36.0 g/dL Normal 10-20-19 20 [facility] (49296) MCV (RBC) [Entitic vol] 89.7 80.0-100.0 fL Normal 10-19 [facility] (80398) Platelet mean volume 9.4 9.0-12.7 fL Normal 0 [facility] (Bld) [Entitic vol] [place] (73708) Platelets (Bld) [#/Vol] 237 150-400 k/uL Normal 2019 [facility] (82500) RBC (Bld) [#/Vol] 4.27 3.90-5.20 m/uL Normal 10-20-2019 [facility] (15204) WBC (Bld) [#/Vol] 9.60 3.70-11.00 k/uL Normal 10-20-2019 [facility] (41386) albumin/creat ratio on 2019-10-20 Albumin Urine Random 1026.8 mg/L Normal 0 [facility] (46011) Comment: Performed By: #### UACR #### [facility] [place], [place] [phone] Albumin/Creat Ratio 668 <30 mg/g High 10-20-2019 [facility] (33540) Comment: Result Comment: Adult Male a nd [...] 3(1), 1-150. Performed By: #### UACR #### [facility] [place], [place] [phone] Creatinine,Urine,Ran 153.7 20-300 mg/dL Normal 0 [facility] (71757) Comment: Performed By: #### UACR #### [facility] [place], [place] [phone] obsolete on 2019-09 OBSOLETE Refill (INTMWS) Normal 09-23-2019 [facility] ANA IVORY ([id number]) 1940 [facility] Date Time Provider Department ([id number]) 09/23/19 ALICIA BLOUNT INTMWS During your visit [...] notify patient. Florence Ribeiro Pss Clarence Berry, MASOUD.LOAN DOCUMENTS CLOSER 09/23/2019 10:04 AM Signed rx sent Allergies [...] Diarrhea METFORMIN 05/10/2011 6 - Diarrhea NEOSPORIN ([id number]-[id number]-VT*08/31/2008 2 - Rash Comments: blisters PROTONIX (PANTOPRAZOLE) 01/13/2010 6 - Diarrhea RELAFEN (NABUMETONE) 03/22/2006 8 - GI Upset 11 - Vomiting ACTOS (PIOGLITAZONE HCL) 12/03/2016 7 - Swelling Date Reviewed: 09/15/2019 Reviewed by: Isabella (Rn) MANNY Kimble - Fully Assessed Reason for Visit: Refill Request [94] Visit Diagnosis: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, with long-term current use of insulin ([facility]) [E08.40, Z79.4] Order(s):gabapentin (NEURONTIN) 300 mg capsuleTake [...] surgical pathology on 2019-09-15 SURGICAL Normal 09-15-2019 [place] [place] Specimen originated from [facility] ([id number]) Specimen #: [id number] Submitting Physician: RUBIN LORENZO MD FINAL DIAGNOSIS [...] in-situ hybridization tests have been determined by [facility] ([facility]) in a manner consistent with CLIA requirements. One or more of these tests have not been cleared or approved by the FDA. [facility] is regula amando under CLIA as [...] in one cassette. Gross examination performed at [facility], [address] [place] [address] J 09/16/2019 1:31:26 AM Date of Report: 09/17/2019 Date of Procedure: 09/15/2019 Date of Receipt: 09/15/2019 Submitted by: RUBIN LORENZO MD Location: W010 Diagnostic interpretation performed at [place] [address]. CLIA Number: [id number] pt ed on 2019-09-15 PT ED HNO ID: [id number] Normal 09-15-2019 [facility] Author: Isabella Billingsley) MANNY Kimble [facility] (08535) Service: ? Author Type: Registered Nurse Type: [...] Department: AMBULATORY SURGERY PT ED HNO ID: [id number] Normal 09-15-2019 [facility] Author: Isabella Kimble RN [place] ([id number]) Service: ? Author Type: Registered Nurse Type: [...] nursing prog on NURSING PROG HNO ID: [id number] Normal 09-15-19 [facility] Author: Isabella Kimble RN [place] ([id number]) Service: ? Author Type: Registered Nurse Type: Nursing Progress Note Filed: 09/15/2019 9:40 AM Note Text: Patient did not experience a fall prior to discharge. Patient did not experience a burn prior to discharge. Isabella Kimble RN NURSING PROG HNO ID: [id number] Normal 09-15-19 [facility] Author: Isabella Kimble RN [place] ([id number]) Service: ? Author Type: Registered Nurse Type: Nursing Progress Note Filed: 09/15/2019 9:16 AM Note Text: Patient sitting up in bed tolerating snack and drink without problems. Isabella Kimble RN NURSING PROG HNO ID: [id number] Normal 09-15-19 [facility] Author: Isabella Kimble RN [place] ([id number]) Service: ? Author Type: Registered Nurse Type: Nursing Progress Note Filed: 09/15/2019 8:56 AM Note Text: Patient arrived to PACU, on left side, abdomen soft. Patient resting comfortably. Isabella Kimble RN NURSING PROG HNO ID: [id number] Normal 09-15-19 [facility] Author: Quiana Mcgovern RN [place] ([id number]) Service: Nursing Author Type: Registered Nurse Type: Nursing Progress Note Filed: 09/15/2019 8:46 AM Note Text: Patient did not experience a fall within the Intraoperative area. Patient did not experience a burn within the Intraoperative area. Quiana Mcgovern RN NURSING PROG HNO ID: [id number] Normal 09-15-19 [facility] Author: Isabella Kimble RN [place] ([id number]) Service: ? Author Type: Registered Nurse Type: [...] history physical on 2019-09-15 HISTORY HNO ID: [id number] Normal 09-15-2019 [place] PHYSICAL Author: Rubin Tejeda Service: Gastroenterology [place] Author Type: Physician ([id number]) Type: HANDP Filed: 09/15/2019 8:21 AM Note [...] C. difficile diarrhea 10/18/2011 - Cataract 04/17/2013 [facility], Dr. Dada Rodríguez. Mild cataract in L eye- no need for cataract surgery at this time. Continue to follow u p the cataract. 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 At thi s time, we anticipate [...] who had a nodule identified on a tx reening scan in the past due to [...] daily. 09/14/2019 at Unknown time Yes Insulin [place], Disposable, (EASY TOUCH) 31 gauge x 3/16 [...] at Unknown time Yes Miscellaneous Medical [employer] [facility] Orthotics (E08.40, Z79.4) Diabetes mellitus due [...] Refill (INTMWS) Normal 09-13-2019 Mannie [facility] DIANELYSMARIELLAVINCENT Wheeler ([id number]) 1940 [facility] Time Provider Department ([id number]) 09/13/19 CLARENCE BERRY (LOLI) INTMWS During your [...] Diarrhea METFORMIN 05/10/2011 6 - Diarrhea NEOSPORIN ([id number]-NWYWJIGKIU-FN*08/31/2008 2 - Rash Comments: blisters PROTONIX (PANTOPRAZOLE) 01/13/2010 6 - Diarrhea RELAFEN (NABUMETONE) 03/22/2006 8 - GI Upset 11 - Vomiting ACTOS (PIOGLITAZONE HCL) 12/03/2016 7 - Swelling Date Reviewed: 08/08/2019 Reviewed by: Cintia Macias LPN - Fully Assessed Reason for Visit: Refill Request [94] Visit Diagnoses:Anxiety [F41.9] 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, with long-term current use of insulin ([facility]) [E08.40, Z79.4] Order(s):glimepiride (AMARYL) 2 mg tabletTake [...] 09/14/19 progress on 2019-07 PROGRESS HNO ID: [id number] Normal 08-08-2019 [facility] Author: Alicia Blount [place] ([id number]) Service: ? Author Type: Physician Type: Progress [...] C. difficile diarrhea 10/18/2011 - Cataract 04/17/2013 [facility], Dr. Dada Rodríguez. Mild cataract in L eye- no need for cataract surgery at this time. Continue to follow u p the cataract. 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 At thi s time, we anticipate [...] [facility] on Sun[facility]/[address] [...] who had a nodule identified on a tx reening scan in the past due to [...] 180 days. Morning and bedtime - Insulin [place], Disposable, (EASY TOUCH) 31 gauge x 10/26 [...] E11.9 , Insulin: Yes - Blood-Glucose Meter (FIGMDTOUCH ULTRA2) monitoring kit 1 Eac h as [...] and/or coordi nating care for the patient. Arks-ha-jrxn time was at least 40 minutes. Alicia Blount MD cnov on 2019-08-08 CNOV Office Visit (INTMWS) Normal 08-08-20 19 [place] [facility] ANA IVORY ([id number]) 1940 [facility] Date Time Provider Department ([id number]) 08/08/19 1:00 PM ALICIA BLOUNT INTMWS During [...] C. difficile diarrhea 10/18/2011 - Cataract 04/17/2013 [facility], Dr. Dada johnson Mild cataract in L eye- no need for cataract surgery at this time. Continue to follow up the cat aract. 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 At thi s time, we anticipate that the patient will be discharged home once c linically stable. Plan: - Discuss needs with patient. - Collaborate with Case management to facilitate DC process - Will continue to evaluate during the post op period. - Desat study 11/14/14: patient will need home oxygen (2 L with exertion only) - Discharge home today with [facility] care for assistance with chest tube to [facility]. Return to [facility] on Sunday11/18/[address] [...] 180 days. Morning and bedtime - Insulin [place], Disposable, (EASY CARROL CH) 31 gauge x [...] counseling and/or coordinating care for the patient. Iskt-ct-dwzy time was at least 40 minutes. MD [...] Diarrhea METFORMIN 05/10/2011 6 - Diarrhea NEOSPORIN (ZCSVVXGB-LHUCPITVDL-JY*08/31/2008 2 - Rash Comments: blisters PROTONIX (PANTOPRAZOLE) 01/13/2010 6 - Diarrhea RELAFEN (NABUMETONE) 03/22/2006 8 - GI Upset 11 - Vomiting ACTOS (PIOGLITAZONE HCL) 12/03/2016 7 - Swelling Date Reviewed: 08/08/2019 Reviewed by: Cintia Macias LPN - Fully Assessed Reason for Visit: Follow Up [171] Primary Visit Diagnosis: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, with long-term current use of insulin ([facility]) [E08.40, Z79.4] Other Visit Diagnoses:Pain, dental [K08.89] History of tooth extraction, unspecified edentulism class [K08.409] Closed fracture of tooth with routine healing, subsequent encounter [S02.5XXD] Hair thinning [L65.9] Comment:right side of head (same side that lays on) Essential hypertension [I10] Bladder irritability [N32.89] Nocturia [R35.1] Comment:improved with treatment per Yazmin Don. Continue present management. Order(s):HEMOGLOBIN A1C (POC) [2266567] Order #: [id number] pec. #:[id number] Cephalexin 250 mg tabTake 1 tablet by [...] ALBUMIN/CREAT RATIO RND UR [SQUACR] Order #: [id number] FUTU RE [] HYDROcodone-acetaminophen (NORCO) 5-325 mg [...] twice daily. (Dr Don) MISCELLANEOUS MEDICAL SUPPLY [facility] 2 Ea* 0 08/08/2019 Class: Print RX [...] Encounter Status:Closed by ALICIA BLOUNT MD on 09/02/19 obsolete on 2019-07 OBSOLETE Refill (INTMWS) Normal 07-23-2019 Mannie mancini [facility] ANA IVORY ([id number]) 1940 [facility] Date Time Provider Department ([id number]) 07/23/19 ALICIA BLOUNT INTMWS During your visit [...] printed as above. Please process accordingly . [facility] website checked and validated. All prescrip tions [...] Diarrhea METFORMIN 05/10/2011 6 - Diarrhea NEOSPORIN ([id number]-[id number]-WS*08/31/2008 2 - Rash Comments: blisters PROTONIX (PANTOPRAZOLE) [...] OBSOLETE Refill (INTMWS) Normal 06-20-2019 Mannie mancini [facility] ANA IVORY ([id number]) 1940 [facility] Date Time Provider Department ([id number]) 06/20/19 ALICIA BLOUNT INTErisWS During your visit [...] Diarrhea METFORMIN 05/10/2011 6 - Diarrhea NEOSPORIN ([id number]*08/31/2008 2 - Rash Comments: blisters PROTONIX (PANTOPRAZOLE) [...] INVALID FOR* LUNG NODULE [R22.2] INVALID FOR*04/30/2015 STRICLKAND'S ESOPHAGUS [K22.70] Acute gastritis without mention of [...] hosp on 2019-06-18 HOSP Patient:Ana Ivory [birth year] [facility] MRN: [id number] ([id number]) Height:5' 2.5(1.588 m) Weight:No patient weight recorded [...] cap gabapentin (NEURONTIN) 300 mg capsule Insulin [place], Disposable, (EASY TOUCH) 31 gauge x 3/16 [...] [G43.909] Recurrent bronchospasm [J98.09] 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 ([facility]) [I63.211] 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] Mouth dryness [R68.2] Hyperlipidemia [E78.5] Functional dyspepsia [K30] 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] Gastroesophageal reflux disease with esophagitis [K21.0] Vitamin D deficiency [E55.9] 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] Allergies: Adhesive Tape (Rosins) Aspirin Boniva [Ibandronate] Carafate [Sucralfate] Ciprofloxacin Codeine Ibuprofen Iodine Lansoprazole Metformin Neosporin [Tnzyupye-Bedzludonh-Uljdtemwt] Protonix [Pantoprazole] Relafen [Nabumetone] Actos [Pioglitazone Hcl] Date Verified: 09/15/19 Lab Values No results within the last 30 days for the following basenam es: K,HCT Progress Notes ([facility]): Chelsy Vogel RN 09/13/2019 10:40 AM [...] Vogel RN Progress Notes ([facility]): Nargis Miller Pss 09/04/2019 4:29 PM [...] history physical on 2019-06-18 HISTORY HNO ID: [id number] Normal 06-18-2019 [place] PHYSICAL Author: Medhat Barrera [facility] Service: ? [place] Author Type: Nurse Practitioner ([id number]) Type: HANDP Filed: 06/18/2019 10:28 AM Note [...] reported above : Overactive bladder /interstitial cystitis. MANAGER CHANGE: Negative for abnormal vaginal bleeding, abnormal vagina [...] C. difficile diarrhea 10/18/2011 - Cataract 04/17/2013 [facility], Dr. Dada Rodríguez. Mild cataract in L eye- no need for cataract surgery at this time. Continue to follow u p the cataract. 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 At thi s time, we anticipate that the patient will be discharged home once cli nically stable. Plan: - Discuss needs with patient. - [facility] to facilitate DC process - Will continue to evalu ate during the post op period. - Desat study 11/14/14: patient will need home oxygen (2 L with exertion only) - Discharge home today with home ca [facility]. [facility] to [facility]PD on Sun11/18/[address] [...] right eye - COLONOSCOP W/ OR W/O RUST SPEC 10/31/2007 Colonoscopy - EGD W/O RUST SPECIMEN W/BX 11/01/09 - EGD W/O RUST SPECIMEN W/BX 11/23/11 - EGD W/O OR [...] and bedtime 180 capsule 1 - Insulin [place], Disposable, (EASY TOUCH) 31 gauge x 16 [...] with more than 50% of the total zqod-cr-bjcy t dinorah of the visit in counseling / coordination of care. Medhat Barrera RN APRN.NEMESIO eason on 2019-06-18 CNOV Office Visit ([facility]) Normal 06-18-20 19 [place] [facility] ANA IVORY ([id number]) 1940 [facility] Time Provider Department ([id number]) 06/18/19 9:20 AM MEDHAT BARRERA During your visit today, we recorded the following informati on about you: Pulse Blood pressure Weight 76/minute 124/74 58.5 kg Medhat Barrera RN UNPAID INTERN.SCHOOL CROSSING GUARD SUPERVISOR 06/18/2019 10:28 AM Signed Ana Wheeler Dianelys [...] esophagus, biopsy (B) - Cardiac mucosa with salesperson art objects alexander inflammation, negative for intestinal metaplasia. The [...] reported above : Overactive bladder /interstitial cystitis. MANAGER CHANGE: Negative for abnormal vaginal bleeding, abnormal vagina [...] C. difficile diarrhea 10/18/2011 - Cataract 04/17/2013 [facility], Dr. Dada johnson Mild cataract in L eye- no need for cataract surgery at this time. Continue to follow up the cat aract. 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 At thi s time, we anticipate that the patient will be discharged home once c linically stable. Plan: - Discuss needs with patient. - Collaborate with Case management to facilitate DC process - Will continue to evaluate during the post op period. - Desat study 11/14/14: patient will need home oxygen (2 L with exertion only) - Discharge home today with [facility] care for assistance with chest tube to [...] and bedtime 180 capsule 1 - Insulin [place], Disposable, (EASY CARROL ) 31 gauge x [...] with more than 50% of the total zylm-zd-gbac time of the visit in counseling / coordination of care. Medhat Barrera RN UNPAID INTERN.NEMESIO Barrera RN UNPAID INTERN.NEMESIO 06/18/2019 9:34 AM Signed See if Nexium [...] in that regard. Referring Provider: ALICIA BLOUNT [[id number]] Allergies As of Date: 06/18/2019 Noted Allergy [...] Diarrhea METFORMIN 05/10/2011 6 - Diarrhea NEOSPORIN ([id number]*08/31/2008 2 - Rash Comments: blisters PROTONIX (PANTOPRAZOLE) [...] DAILY (6 AM).Disp: 90 capsuleRfl: 3 EGD [[id number]] Order #: [id number] FUTURE COLONOSCOPY SCRN NOT HIGH RISK [[id number]] Order #: [id number] FUTURE Prescriptions as of 06/18/2019 Sig: [...] Normal 05-24-2019 [facility] ANA IVORY ([id number]) 1940 [facility] Time Provider Department ([id number]) 05/24/19 ALICIA BLOUNT INTErisWS During your visit [...] Diarrhea METFORMIN 05/10/2011 6 - Diarrhea NEOSPORIN ([id number]*08/31/2008 2 - Rash Comments: blisters PROTONIX (PANTOPRAZOLE) [...] on 2019-04 OBSOLETE Refill (INTMWS) Normal 05-08-2019 [facility] ANA IVORY ([id number]) 1940 [facility] Date Time Provider Department ([id number]) 05/08/19 ALICIA BLOUNT INTMWS During your visit today, we recorded the following informati on about you: Libertad [facility] 05/08/2019 4:11 PM Signed Patient has been [...] Diarrhea METFORMIN 05/10/2011 6 - Diarrhea NEOSPORIN ([id number]*08/31/2008 2 - Rash Comments: blisters PROTONIX (PANTOPRAZOLE) 01/13/2010 6 - Diarrhea RELAFEN (NABUMETONE) 03/22/2006 8 - GI Upset 11 - Vomiting ACTOS (PIOGLITAZONE HCL) 12/03/2016 7 - Swelling Date Reviewed: 04/25/2019 Reviewed by: Yulisa Bills LPN - Fully Assessed Reason for Visit: Refill Request [94] Visit Diagnoses: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, with long-term current use of insulin ([facility]) [E08.40, Z79.4] Chronic cough [R05] Comment:2014 PFT [...] [id number] 4. Body weight 59.42 kg 04-26-2020 [facility] ([id number]) BP Diastolic 60 mm[Hg] 04-26-2020 [facility] ([id number]) BP Systolic 124 mm[Hg] 04-26-2020 [facility] ([id number]) Pulse (Heart Rate) 64 /min 04-26-2020 [facility] ([id number]) Respiratory Rate 16 /min 04-26-2020 [facility] ([id number]) Encounters Date Type Reason Provider Location 03-26-2020 - Documentation External [facility] 03-26-2020 procedure Provider 03-26-2020 External External External-NonCCF Correspondence Provider 04-26-2020 - Patient encounter Acute posttraumatic Ct [facility] Cat Scan 04-26-2020 procedure headache (I-Stat) Comment: Radiology CT 04-26-2020 - Patient encounter Acute posttraumatic Clarence (Production Helper) Int ernal 04-26-2020 procedure headache [facility] Comment: Acute post-traumatic headach e, not intractable (Primary Dx); Facial pain; Blurry vision, left eye 04-13-2020 - Refill Secondary diabetes Alicia Blount [facility] 04-13-2020 mellitus Comment: Refill Request 04-27-2020 - 04-27-2020 Telephone encounter Clarence (Production Helper ) [place] [facility] Comment: Results (CT) 04-26-2020 - 04-26-2020 Telephone encounter Fall Alicia Alford [facility] Comment: Fall Procedures Procedure Name Date Provider Location Ct head/brain w/o 04-26-2020 Clarence (Production Helper) [facility] linic contrast material ([id number]) Colonoscopy 09-15-2019 - [facility] 09-15-2019 ([id number]) Plan of Treatment Plan Description Date Location COLONOSCOPY COLONOSCOPY 09-15-2029 - [facility] 09-15-2029 ([id number]) COLORECTAL CANCER COLORECTAL CANCER 09-15-2029 [facility] inic SCREENING,SEE MODIFIER SCREENING,SEE MODIFIER (4 [phone]) ANNUAL PCP TEAM CHRONIC ANNUAL PCP TEAM CHRONIC 04-26-2021 - [facility] DISEASE VISIT DISEASE VISIT 04-26-2021 ([id number]) BP CONTROLLED (<130/80) BP CONTROLLED (<130/80) 04-26-2021 - [facility] 04-26-2021 ([id number]) DILATED RETINAL EXAM DILATED RETINAL EXAM 04-01-2021 - [facility] 04-01-2021 ([id number]) ANNUAL PCP TEAM CHRONIC ANNUAL PCP TEAM CHRONIC 01-26-2021 - [facility] DISEASE VISIT DISEASE VISIT 01-26-2021 ([id number]) URINE ALBUMIN:CREATININE URINE ALBUMIN:CREATININE 01-21-2021 - [facility] RATIO RATIO 01-21-2021 ([id number]) DIABETIC FOOT EXAM DIABETIC FOOT EXAM 10-23-2020 - [facility] 10-23-2020 ([id number]) SHINGRIX VACCINE (2 of SHINGRIX VACCINE (2 of 10-23-2020 - [facility] 3) 3) 10-23-2020 ([id number]) Comment: Postponed from 03/04/2008 (D eclined at this time) LDL CHOLESTEROL LDL CHOLESTEROL 10-19-2020 - [facility] 10-19-2020 ([id number]) DTAP,TDAP,TD (2 - Td) DTAP,TDAP,TD (2 - Td) 08-08-2020 - [facility] 08-08-2020 ([id number]) Comment: Postponed from 03/22/2016 (D eclined at this time) HBA1C HBA1C 07-23-2020 - [facility] 07-23-2020 ([id number]) BP CONTROLLED BP CONTROLLED 04-25-2020 - [facility] (<130/80) (<130/80) 04-25-2020 ([id number]) INFLUENZA (#1) INFLUENZA (#1) 2020 [facility] ([id number]) DILATED RETINAL EXAM DILATED RETINAL EXAM 03-05-2020 [facility] ([id number]) ADVANCE DIRECTIVE ADVANCE DIRECTIVE 09-25-2013 - [facility] inic DISCUSSION DISCUSSION 09-25-2013 ([id number]) HEPATITIS C SCREENING HEPATITIS C SCREENING 1960 - [facility] 1958 (86657) no information [facility] (50188) Immunizations Vaccine Notes Status Date Location Influenza [...] - High Dose - Age seasonal, 04-25-2019 ([id number]) 65+ preservative-free Influenza Seasonal influenza, high dose (completed) 04-20-2018 - [facility] - High Dose - Age seasonal, 04-20-2018 (75012) 65+ preservative-free Influenza Seasonal influenza, high dose (completed) 05-17-2017 - [facility] - High Dose - Age seasonal, 05-17-2017 (45748) 65+ preservative-free Influenza Seasonal influenza, high dose (completed) 05-11-2016 - [facility] - High Dose - Age seasonal, 05-11-2016 (43088) 65+ preservative-free Influenza Seasonal influenza, high dose (completed) 05-12-2015 - [facility] - High Dose - Age seasonal, 05-12-2015 (21608) 65+ preservative-free Influenza Seasonal influenza, seasonal, (completed) 04-15-2020 - [facility] Inj Age 3+ injectable 04-15-2020 ([id number]) Influenza Seasonal influenza, seasonal, (completed) 05-13-2014 - [facility] Inj Age 3+ injectable 05-13-2014 (39914) Pneumococcal-13 Vac pneumococcal conjugate (completed) 09-07-2014 - [facility] Conjugate vaccine, 13 valent 09-07-2014 ([id number]) Pneumovax pneumococcal (completed) 09-05-2007 - [facility] polysaccharide vaccine, 09-05-2007 (441 95) 23 valent Tdap (Age 7+) tetanus toxoid, reduced (completed) 03-22-2006 - [facility] diphtheria toxoid, and 03-22-2006 (4419 5) acellular pertussis vaccine, adsorbed Zostavax zoster vaccine, live (completed) 01-08-2008 - [facility] 01-08-2008 ([id number]) Payers Payer Name Policy Number Location HUMANA [id number] [facility] (44 195) MEDICARE [id number] [facility] (44 195) The following information is from the original human readable contentNo Payer Records Found Social History Type Social History Date Location Description Tobacco smoking status Never smoker 01-08-2020 - [facility] NHIS 04-26-2020 (82691) Tobacco use and Never used 01-08-[address] [facility] exposure 04-26-2020 (34982) Alcohol intake Current drinker of 01-08-2020 [facility] alcohol (finding) 04-26-2020 (39161) Alcohol Comment 2-3 drinks/years 10-07-2014 - [facility] 10-07-2014 (07788) Sex Assigned At Not on file [facility] (19309) Exposure to SARS-CoV-2 Not sure [facility] (event) (69413) The following information is from the original [...] Overview: Ana Ivory is and lives in [place], [place]. At this time, we anticipate that [...] fo r assistance with chest tube to [facility]. Return to OPD on Sunday11/18/[address] removal . Esophageal reflux 10/08/2014 10/08/2014 Cataract 04/17/2013 09/15/2016 Overview: [facility], Dr. Dada johnson Mild cataract in L [...] Overview: Ana Ivory is and lives in [place], [place]. At this time, we anticipate that [...] fo r assistance with chest tube to [facility]. Return to OPD on Sunday11/18/[address] removal . Esophageal reflux 10/08/2014 10/08/2014 Cataract 04/17/2013 09/15/2016 Overview: [facility], Dr. Dada johnson Mild cataract [...] Overview: Ana Ivory is and lives in [place], [place]. At this time, we anticipate that [...] reflux 10/08/2014 10/08/2014 Cataract 04/17/2013 09/15/2016 Overview: [facility], Dr. Dada johnson Mild cataract in L [...] Overview: Ana Ivory is and lives in [place], [place]. At this time, we anticipate that [...] fo r assistance with chest tube to [facility]. Return to OPD on Sunday11/18/[address] removal . Esophageal reflux 10/08/2014 10/08/2014 Cataract 04/17/2013 09/15/2016 Overview: [facility], Dr. Dada johnson Mild cataract in L [...] Documents on File Type Date Recorded Patient Language Instructor Explanati on Advance Directive(s) 09/27/2006 12:00 AM [...] left side of face from jaw to yazidi, no step off or deformity appreciated on [...] EVERY DAY NEEDED FOR FOR ANXIETY Insulin [place], Disposable, (EASY TOUCH) 31 gauge x 3/16 [...] twice daily. (Dr Don) [employer] [facility] [employer] (E08.40, Z79.4) Diabetes mellitus due [...] C. difficile diarrhea 10/18/2011 ? Cataract 04/17/2013 [facility], Dr. Dada Rodríguez. Mild cataract in L eye- no need for cataract surgery at this time. Continue to follow up the cataract. ? 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 Displacement of lumbar intervertebral disc without myelopathy ? DISPOSITION AND FOLLOW-UP 11/11/2014 Ana Ivory is and lives in [place], [place]. At this time, we anticipate that the patient will be discharged home once clinically stable. Plan: - Discuss needs with patient. - Collaborate with Case management to facilitate DC process - Will continue to evaluate during the post op period. - Desat study 11/14/14: patient will need home oxygen (2 L with exertion only) - [facility] [...] should be addressed right away. Clarence Berry APRN.LOAN DOCUMENTS CLOSER documented in this encounterCarolynn Macias ([employer]), [facility] - 04/26/2020 4:07 PM EDT Radiology Service [...] BE BASED ON THE PRIMARY CLINICAL RECORDS. [facility] provides no warranty or guarantee of the accuracy or completeness of information in this document. UNRECOGNIZED CONTENT PROVIDED BELOW FOR UNRECOGNIZED SECTION Source Comments In the event this information is protected by the Federal Confidentiality of Alcohol and Drug Abuse Patient Records regulations: The Federal rules restrict any use of the information to criminally investigate or prosecute any alcohol or drug abuse patient.[facility] Center[facility] the event this information is protected by the Federal Confidentiality of Alcohol and Drug Abuse Patient Records regulations: The Federal rules restrict any use of the information to criminally investigate or prosecute any alcohol or drug abuse patient.[facility] Center[facility] the event this information is protected by the Federal Confidentiality of Alcohol and Drug Abuse Patient Records regulations: The Federal rules restrict any use of the information to criminally investigate or prosecute any alcohol or drug abuse patient.[facility] Center[facility] the event this information is protected by the Federal Confidentiality of Alcohol and Drug Abuse Patient Records regulations: The Federal rules restrict any use of the information to criminally investigate or prosecute any alcohol or drug abuse patient.[facility] CenterIn the event this information is protected by the Federal Confidentiality of Alcohol and Drug Abuse Patient Records regulations: The Federal rules restrict any use of the information to criminally investigate or prosecute any alcohol or drug abuse patient.[facility] CenterIn the event this information is protected by the Federal Confidentiality of Alcohol and Drug Abuse Patient Records regulations: The Federal rules restrict any use of the information to criminally investigate or prosecute any alcohol or drug abuse patient.[facility] UNRECOGNIZED CONTENT PROVIDED BELOW FOR UNRECOGNIZED SECTION [...] in the L eye. Appt scheduled with ATMOSPHERIC PHYSICIST for today. Harlan Zarate LPN documented in [...] DATE CREATED AUTHOR AUTHOR'S ORGANIZATIO N 04/27/2020 [facility]
--- OUTSIDE RECORDS SUMMARY | 2020-05-25 15:35 | XMS RPT_ITS | CCD ---
:1940 External Reference #:[id number] Author Organization [facility] Care Team Providers Name Role Phone Rhonda Blount Primary Care Provider Allergies Reported Allergen Reaction(s) Severity Date of Onset Location Adhesive Tape Hives 08-31-2008 - [facility] ([id number]) Aspirin Contraindication-Medi [facility]-16-2018 [facility] (59725) Ciprofloxacin Other: See Comments 12-01-2013 - [facility] (24627) Codeine GI Upset 08-24-2005 - [facility] (72461) Ibandronate GI Upset 12-04-2008 [facility] (13472) Ibuprofen GI Upset 03-22-2006 - [facility] (13545) Iodine Vomiting 08-25-2008 - [facility] (05381) lansoprazole Diarrhea 11-01-2011 - [facility] (74608) metFORMIN Diarrhea 05-10-2011 - [facility] (63336) nabumetone GI Upset, Vomiting 03-22-2006 - [facility] (24475) Vctxgzvj-Pikydcvmxv-Yom Rash 08-31-2008 - [facility] ymyxin (67194) pantoprazole Diarrhea 01-13-2010 - [facility] (64924) pioglitazone Swelling Low 12-03-2016 - [facility] (36964) Sucralfate Other: See Comments 04-24-2012 - [facility] (26673) Medications Medication Name Sig Date Prescriber Location Aspirin aspirin, enteric coated [facility] Provider [facility] ([id number]) (ASPIRIN, ENTERIC COATED) 81 mg EC tablet Take 81 mg by mouth once daily. 0 Active Comment: Take 81 mg by mouth once danuta ly. atorvastatin atorvastatin (LIPITOR) 01-08-2020 Alicia D [facility] 20 mg tablet Take 1 (98554) tablet by mouth once daily. 90 tablet 3 01/08/2020 Active Comment: Take 1 tablet by mouth once daily. Biotin Biotin 2,500 mcg cap Nurse 01-27-2020 Alicia Bateman [facility] (78063) reports patient taking 1500 mcg dose once daily (cannot find 1500mcg dose on menu) 0 01/27/2020 Active Comment: Nurse reports patient taking 1500 mcg dose once daily (cannot find 1500mcg dose on menu) Blood-Glucose Meter Blood-Glucose Meter 05-23-2017 Alicia Rhonda [facility] (ONETOUCH ULTRA2) (ONETOUCH ULTRA2) (4419 5) monitoring kit monitoring kit 1 Each as needed. One Touch Meter Kit Diagnosis: Type 2 DM - Controlled E11.9 1 Each 0 05/23/2017 Active Blood-Glucose Meter (ONETOUCH 05-23-2017 Alicia Rhonda [facility] (30781) ULTRA2) monitoring kit 1 Each as needed. One Touch Meter Kit Diagnosis: Type 2 DM - Controlled E11.9 1 Each 0 05/23/2017 Active Blood-Glucose Meter (ONETOUCH 05-23-2017 Alicia Rhonda [facility] (76555) ULTRA2) monitoring kit 1 Each as needed. One Touch Meter Kit Diagnosis: Type 2 DM - Controlled E11.9 1 Each 0 05/23/2017 Active Blood-Glucose Meter (ONETOUCH 05-23-2017 Alicia Rhonda [facility] (14176) ULTRA2) monitoring kit 1 Each as needed. One Touch Meter Kit Diagnosis: Type 2 DM - Controlled E11.9 1 Each 0 05/23/2017 Active Blood-Glucose Meter (ONETOUCH 05-23-2017 [facility] (46857[facility] ULTRA2) monitoring kit 1 Each as needed. One Touch Meter Kit Diagnosis: Type 2 DM - Controlled E11.9 1 Each 0 05/23/2017 Active Blood-Glucose Meter (ONETOUCH 05-23-2017 [facility] (05588) ULTRA2) monitoring kit 1 Each as needed. One Touch Meter Kit Diagnosis: Type 2 DM - Controlled E11.9 1 Each 0 05/23/2017 Active Comment: 1 Each as needed. One Touch Meter Kit Diagnosis: Type 2 DM - Controlled E11.9 Capsaicin capsaicin (ZOSTRIX) 01-27-2020 [facility]) Berry [facility] 0.025 % cream Apply 3 (59718 ) application to affected area three times daily. January 27, 2020 states not using 100 g 0 01/27/2020 Active Comment: Apply 3 application to affec amando area three times daily. January 27, 2020 states not using Cephalexin Cephalexin 250 mg tab 08-08-2019 Alicia Rhonda Blount [facility] Take 1 tablet by mouth (4419 5) daily at bedtime. (Dr Don) 0 08/08/2019 Active Comment: Take 1 tablet by mouth daily at bedtime. (Dr Don) Cholecalciferol Cholecalciferol, Vitamin 04-25-2019 [facility] ([facility] D3, 1,000 unit cap Take 2 Berry (4 4195) capsules by mouth once daily. 0 04/25/2019 Active Comment: Take 2 capsules by mouth onc e daily. COMPOUNDED COMPOUNDED 01-03-2018 Alicia Rhonda Blount [facility] in PRESCRIPTION PRESCRIPTION Custom (95763) orthotics (E08.40, Z79.4) 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, with long-term current use of insulin 2 Each 0 01/03/2018 Active COMPOUNDED PRESCRIPTION Custom 01-03-2018 [facility] (60184[facility] orthotics (E08.40, Z79.4) 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, with long-term current use of insulin 2 Each 0 01/03/2018 Active COMPOUNDED PRESCRIPTION Custom 01-03-2018 Alicia D [facility] (33929) orthotics (E08.40, Z79.4) 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, with long-term current use of insulin 2 Each 0 01/03/2018 Active COMPOUNDED PRESCRIPTION Custom 01-03-2018 Alicia D [place] [facility] (52205) orthotics (E08.40, Z79.4) 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, with long-term current use of insulin 2 Each 0 01/03/2018 Active COMPOUNDED PRESCRIPTION Custom 01-03-2018 [facility] (05544) orthotics (E08.40, Z79.4) 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, with long-term current use of insulin 2 Each 0 01/03/2018 Active COMPOUNDED PRESCRIPTION Custom 01-03-2018 Alicia Rhonda [facility] (90086) orthotics (E08.40, Z79.4) 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, with long-term current use of insulin 2 Each 0 01/03/2018 Active Comment: Custom orthotics (E08.40, Z7 9.4) Diabetes 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 condition with diabetic neur opathy, with long-term current use of insulin Cranberry-Vitamin Cranberry-Vitamin 01-27-2020 [facility] David balbuena C-Vitamin E (CRANBERRY C-Vitamin E ([facility] (62974) PLUS VITAMIN C) 140-100 PLUS VITAMIN C) 140-100 mg cap mg cap Patient takes Cranberry with Vitamin C capsule that contains 15,000 mg Cranberry and 100mg Vitamin C 0 01/27/2020 Active Cranberry-Vitamin C-Vitamin E 01-27-2020 [facility] (58780) (CRANBERRY PLUS VITAMIN C) 140-100 mg cap Patient takes Cranberry with Vitamin C capsule that contains 15,000 mg Cranberry and 100mg Vitamin C 0 01/27/2020 Active Cranberry-Vitamin C-Vitamin E 01-27-2020 [facility] (88200) (CRANBERRY PLUS VITAMIN C) 140-100 mg cap Patient takes Cranberry with Vitamin C capsule that contains 15,000 mg Cranberry and 100mg Vitamin C 0 01/27/2020 Active Cranberry-Vitamin C-Vitamin E 01-27-2020 [facility] (88275) (CRANBERRY PLUS VITAMIN C) 140-100 mg cap Patient takes Cranberry with Vitamin C capsule that contains 15,000 mg Cranberry and 100mg Vitamin C 0 01/27/2020 Active Cranberry-Vitamin C-Vitamin E 01-27-2020 [facility] (42456) (CRANBERRY PLUS VITAMIN C) 140-100 mg cap Patient takes Cranberry with Vitamin C capsule that contains 15,000 mg Cranberry and 100mg Vitamin C 0 01/27/2020 Active Cranberry-Vitamin C-Vitamin E 01-27-2020 Alicia Blount [facility] (38429) (CRANBERRY PLUS VITAMIN C) 140-100 mg cap Patient takes Cranberry with Vitamin C capsule that contains 15,000 mg Cranberry and 100mg Vitamin C 0 01/27/2020 Active Comment: Patient takes Cranberry with Vitamin C capsule that contains 15,000 mg Cranberry and 100mg Vitamin C Esomeprazole esomeprazole (NEXIUM) 40 mg 06-18-2019 [facility] capsule Indications: (44503) 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 90 capsule 3 06/18/2019 Active Comment: Take 1 capsule by mouth PAOLA Y (6 AM). Estrogens, Conjugated PREMARIN vaginal 06-25-2019 [facility] Provider [facility] (JAIL) cream APPLY 0.5 GRAMS (92061 ) VAGINALLY BEFORE BED EVERY NIGHT FOR 14 DAYS THEN USE TWICE A WEEK FOR 3 MONTHS 0 06/25/2019 Active Comment: APPLY 0.5 GRAMS VAGINALLY BE FORE BED EVERY NIGHT FOR 14 DAYS THEN USE TWICE A WEEK FOR 3 MONTHS gabapentin gabapentin 09-23-2019 - Alicia Ellis [facility] inic (NEURONTIN) 300 mg 10-11-2020 (74421) capsule Indications: 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, with long-term current use of insulin ([facility]) Take 1 capsule by mouth twice daily for 180 days. Morning and bedtime 180 capsule 1 04/14/2020 10/11/2020 Active Comment: Take 1 capsule by mouth twic e daily for 180 days. Morning and bedtime glimepiride glimepiride (AMARYL) 2 09-14-2019 Clarence (Mandrel Cleaner) [facility] mg tablet Indications: (4419 5) 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, with long-term current use of insulin ([facility]) Take 1 tablet by mouth twice daily with meals. 180 tablet 1 09/14/2019 Active Comment: Take 1 tablet by mouth twice daily with meals. Insulin Glargine insulin glargine 02-18-2020 Alicia Blount [facility] (LANTUS SOLOSTAR U-100 (4419 5) INSULIN) 100 unit/mL (3 mL) Inject 24 Units subcutaneously daily at bedtime. 15 mL 3 02/18/2020 Active Comment: Inject 24 Units subcutaneous ly daily at bedtime. Insulin, Aspart, insulin aspart U-100 10-24-2019 - Alicia Ellis [facility] Human (NOVOLOG FLEXPEN 10-23-2020 (79356) U-100 INSULIN) 100 unit/mL (3 mL) Inject 8 Units subcutaneously twice daily with meals. Adjust as directed 5 Pen 11 10/24/2019 10/23/2020 Active Comment: Inject 8 Units subcutaneousl y twice daily with meals. Adjust as directed Ketoconazole ketoconazole (NIZORAL) 2 01-27-2020 Alicia Rhonda [facility] % cream Apply 1 (78439) application to affected area twice daily. Continue for 1 week after rash resolves. 30 g 0 01/27/2020 Active Comment: Apply 1 application to affec amando area twice daily. Continue for 1 week after rash resolves. LORazepam LORazepam (ATIVAN) 1 01-06-2020 - Alicia Ellis [facility] mg tablet Indications: 07-13-2020 (4419 5) Anxiety TAKE 1/2 TO 1 TABLET BY MOUTH EVERY DAY NEEDED FOR FOR ANXIETY 30 tablet 2 04/14/2020 07/13/2020 Active Comment: TAKE 1/2 TO 1 TABLET BY MOUT H EVERY DAY NEEDED FOR FOR ANXIETY Metoprolol metoprolol succinate ER 06-20-2019 Alicia Ellis [facility] (TOPROL XL) 200 mg 24 hr (44 195) tablet Indications: Essential hypertension Take 1 tablet by mouth once daily. 90 tablet 3 06/20/2019 Active Comment: Take 1 tablet by mouth once daily. mirabegron mirabegron (MYRBETRIQ) 50 10-24-2019 Alicia Ellis [facility] mg Tb24 Take 1 tablet by (44 195) mouth twice daily. 0 10/24/2019 Active Comment: Take 1 tablet by mouth twice daily. Miscellaneous Medical Miscellaneous Medical 08-08-2019 Alicia Ellis [facility] (05698) Indications: 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, with long-term current use of insulin (HCC) Custom Orthotics (E08.40, Z79.4) 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, with long-term current use of insulin 2 Each 0 08/08/2019 Active [facility] Medical [facility] 08-08-2019 [facility] Rhonda [facility] (07093) Indications: 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, with long-term current use of insulin (HCC) Custom Orthotics (E08.40, Z79.4) 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, with long-term current use of insulin 2 Each 0 08/08/2019 Active [facility] 08-08-2019 [facility] (86337) Indications: 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, with long-term current use of insulin (HCC) Custom Orthotics (E08.40, Z79.4) 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, with long-term current use of insulin 2 Each 0 08/08/2019 Active [facility] 08-08-2019 [facility] (49172) Indications: 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, with long-term current use of insulin (HCC) Custom Orthotics (E08.40, Z79.4) 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, with long-term current use of insulin 2 Each 0 08/08/2019 Active [facility] 08-08-2019 [facility] (71294) Indications: 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, with long-term current use of insulin (HCC) Custom Orthotics (E08.40, Z79.4) 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, with long-term current use of insulin 2 Each 0 08/08/2019 Active [facility] 08-08-2019 [facility] (37169) Indications: Diabetes 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 condition [...] of insulin multivitamins(DAILY multivitamins(DAILY 12-08-2009 Randi Kessler [facility] MULTIVITAMIN TAB) MULTIVITAMIN TAB) Take (Pst Specialist) [facility] (45368) one(1) tablet daily. 0 12/08/2009 Active multivitamins(DAILY MULTIVITAMIN 12-08-2009 Randi Jefferson (Pst Specialist) [facility] TAB) Take one(1) tablet daily. 0 [place] (90526) 12/08/2009 Active multivitamins(DAILY MULTIVITAMIN 12-08-2009 Randi Jefferson (Pst Specialist) [facility] TAB) Take one(1) tablet daily. 0 [place] (50146) 12/08/2009 Active multivitamins(DAILY MULTIVITAMIN 12-08-2009 Randi Jefferson (Pst Specialist) [facility] TAB) Take one(1) tablet daily. 0 [place] (34325) 12/08/2009 Active multivitamins(DAILY MULTIVITAMIN 12-08-2009 Randi Jefferson (Pst Specialist) [facility] TAB) Take one(1) tablet daily. 0 [place] (80854) 12/08/2009 Active multivitamins(DAILY MULTIVITAMIN 12-08-2009 Randi Jefferson (Pst Specialist) [facility] TAB) Take one(1) tablet daily. 0 [place] (77072) 12/08/2009 Active Comment: Take one(1) tablet daily. oxybutynin oxybutynin ER (DITROPAN 08-08-2019 Alicia Blount [facility] XL) 10 mg 24 hr tablet (4419 5) Take 1 tablet by mouth twice daily. (Dr Don) 0 08/08/2019 Active Comment: Take 1 tablet by mouth twice daily. (Dr Don) Sertraline sertraline (ZOLOFT) 50 09-14-2019 Clarence (Mandrel Cleaner) [facility] mg tablet Take 1 tablet (441 95) by mouth once daily. 90 tablet 3 09/14/2019 Active Comment: Take 1 tablet by mouth once daily. SUMAtriptan SUMAtriptan (IMITREX) 50 11-01-2018 [facility] Take 1 tablet (441 95) by mouth. at onset of headache. May take another tablet as needed one hour later. 10 tablet 5 11/01/2018 Active Comment: Take 1 tablet by mouth. at o nset of headache. May take another tablet as needed one hour later. vit C/E/Zn/coppr/lutein/zeaxan vit C/E/Zn/coppr/lutein/zeaxan [facility] (PRESERVISION AREDS-2 ORAL) ([facility]AL) Provider Clinic Take by mouth twice daily. 0 (60741) Active vit C/E/Zn/coppr/lutein/zeaxan ([facility] Provider [facility] (17654) AREDS-2 ORAL) Take by mouth twice daily. 0 Active vit C/E/Zn/coppr/lutein/zeaxan ([facility] (49599) AREDS-2 ORAL) Take by mouth twice daily. 0 Active vit C/E/Zn/coppr/lutein/zeaxan ([facility] (98675) AREDS-2 ORAL) Take by mouth twice daily. 0 Active vit C/E/Zn/coppr/lutein/zeaxan ([facility] Provider [facility] (24515) AREDS-2 ORAL) Take by mouth twice daily. 0 Active vit C/E/Zn/coppr/lutein/zeaxan ([facility] (73174) AREDS-2 ORAL) Take by mouth twice daily. 0 Active Comment: Take by mouth twice daily. 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 metabolism (62201) Esophageal disorders Gastro-esophageal Active 11-23-2011 - [facility] reflux disease with (75700) esophagitis Essential hypertension Hypertensive disorder Active 3 - [facility] (26221) Genitourinary symptoms Urge incontinence of Active 12-16-2013 - [facility] and ill-defined urine (39789) conditions Headache; including Migraine Active 11-11-2014 - [facility] migraine (54853) Nutritional deficiencies Vitamin D deficiency Active 03-10-20 - [facility] (27531) Osteoarthritis Degenerative joint Active 03-06-2006 - 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 - [facility] disorders (11478) Other upper respiratory Allergic rhinitis Active 03-06-2006 - [facility] disease (49324) Spondylosis; Displacement of lumbar Active [facility] intervertebral disc intervertebral disc ( 75562) disorders; other back without myelopathy problems Past or Other Problems Category Problem Name Status Date Location Diseases of mouth; Xerostomia Completed 11-06-2016 - [facility] excluding dental (00453) Disorders of teeth Temporomandibular joint Completed 11-22-2018 - [facility] and jaw disorder (00301) Other disorders of Nonulcer dyspepsia Completed 08-20-2017 - [facility] stomach and duodenum (28435) Other upper Bronchospasm Completed 01-21-2015 - [facility] respiratory disease (43822) Residual codes; Insomnia Completed 04-30-2007 - [facility] inic unclassified (78300) Results Result Name Value Range Unit Interpretation Flag Date Location [facility] on 2020-04-27 [facility] Telephone (INTMWS) Normal 04-27-2020 [facility] ANA IVORY ([id number]) 1940 [facility] Date Time Provider Department (03605) 04/27/20 CLARENCE BERRY (CHILD WELFARE CASEWORKER) INTMWS During your visit today, we recorded the following informati on about you: Clarence Berry APRN.CHILD WELFARE CASEWORKER 04/27/2020 8:03 AM Signed Please let her [...] Diarrhea METFORMIN 05/10/2011 6 - Diarrhea NEOSPORIN ([id number]*08/31/2008 2 - Rash Comments: blisters PROTONIX (PANTOPRAZOLE) [...] 04/27/20 progress on 2020-04 PROGRESS HNO ID: [id number] Normal 04-26-2020 [facility] Author: Jessica Pete (Tech) [place] (32859) Service: ? Author Type: Lining Stitcher Type: Progress Notes Filed: 04/26/2020 4:08 PM [...] 26, 2020 4:07 PM PROGRESS HNO ID: [id number] Normal 04-26-2020 [facility] Author: Clarence Berry (Cns) [place] ([id number]) Service: ? Author Type: Nurse Specialist Type: [...] left side of face from jaw to shinto, no step off or deformity appreciated on [...] EVERY DAY NEEDED FOR FOR ANXIETY Insulin Fancy Gap, Disposable, (EASY TOUCH) 31 gauge x 3/16 [...] mouth twice daily. ([facility] Don) [facility] Custom Orthotics (E08.40, Z79.4) Diabetes mellitus due [...] C. difficile diarrhea 10/18/2011 - Cataract 04/17/2013 [facility] [place], Dr. Dada Rodríguez. Mild cataract in L eye- no need for cataract surgery at this time. Continue to follow u p the cataract. 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 At thi s time, we anticipate that the patient will be discharged home once cli nically stable. Plan: - Discuss needs with patient. - Collaborate [facility] Case management to facilitate DC process - Will continue to evalu ate during the post op period. - Desat study 11/14/14: patient will need home oxygen (2 L with exertion only) - Discharge home today with home ca re [facility]. [facility] to [facility] on Sun11/18/14 for [...] be addressed right away . Clarence Berry APRN.CHILD WELFARE CASEWORKER ct brain wo ivcon o n 2020-04-26 CT BRAIN WO * * *Final Report* * * Normal 04-26 [facility] IVCON DATE OF EXAM: Apr 26 2020 4:04PM [place] ([id number]) [facility] 0504 - CT BRAIN WO IVCON / [...] and im aged soft tissues are unremarkable. Fourdrinier Tender (topogram) images: No additional findings. IMPRESSION: No acute intracranial abnormality. Moderate burden of presumed chronic microvascular ischemic c hanges and remote left lacunar infarct in the left lentiform nucleus. Transition Of Care Specialist: ABHILASH Transcribe Date/Time: Apr 26 2020 4:08P Dictated by : JOSÉ MIGUEL JOSHI MD This examination was interpreted and the report reviewed and electronically signed by: JOSÉ MIGUEL JOSHI MD on Apr 26 2020 4:12PM EST [id number] [facility] Normal 04-26-2020 [place] [facility] ANA IVORY ([id number]) 1940 [facility] Date Time Provider Department ([id number]) 04/26/20 [facility] During your visit today, we recorded the [...] in the L eye. Appt scheduled with [employer]IP[employer] for today. Harlan Berry APRN.CHILD WELFARE CASEWORKER 04/26/2020 12:16 PM Signed I think she [...] Diarrhea METFORMIN 05/10/2011 6 - Diarrhea NEOSPORIN ([id number]*08/31/2008 2 - Rash Comments: blisters PROTONIX (PANTOPRAZOLE) [...] 2020-04-26 [facility] Office Visit (INTMWS) Normal 04-26-20 [place] [facility] ANA IVORY ([id number]) 1940 [facility] Date Time Provider Department (77366) 04/26/20 2:20 PM CLARENCE BERRY (LOLI) INTMWS [...] side of face from jaw t o shinto, no step off or deformity appreciated on [...] EVERY DAY NEEDED FOR FOR ANXIETY Insulin Fancy Gap, Disposable, (EASY TOUCH) 31 gauge x 3/16 [...] mouth twice daily. (Dr Don) [facility] Custom Orthotics (E08.40 , Z79.4) Diabetes mellitus [...] C. difficile diarrhea 10/18/2011 - Cataract 04/17/2013 [facility], Dr. Dada johnson Mild cataract in L eye- no need for cataract surgery at this time. Continue to follow up the cat aract. 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 At thi s time, we anticipate that the patient will be discharged home once c linically stable. Plan: - Discuss needs with patient. - Collaborate with Case management to facilitate DC process - Will continue to evaluate during the post op period. - Desat study 11/14/14: patient will need home oxygen (2 L with exertion only) - Discharge home today with [facility] care for assistance with chest [...] should be addressed right away. Clarence Berry APRN.CHILD WELFARE CASEWORKER Clarence Berry APRN.CNS 04/26/2020 3:06 PM Addendum [...] Diarrhea METFORMIN 05/10/2011 6 - Diarrhea NEOSPORIN (KYVDCUDW-JEDRFXGEWV-PZ*08/31/2008 2 - Rash Comments: blisters PROTONIX (PANTOPRAZOLE) [...] left eye [H53.8] Order(s):CT BRAIN WO IVCON [[id number]] Order #: [id number] FUT URE Prescriptions as of 04/26/2020 Sig: [...] yor earliest convenience Encounter Status:Closed by CLARENCE LVEINE on 04/26/20 No panel information on 2020-04-26 [facility] ([id number]) obsolete on 2020-04 OBSOLETE Refill (MIQ) Normal 04-13-2020 [place] [facility] ANA IVORY ([id number]) 1940 F [place] Date Time Provider Department ([id number]) 04/13/20 ALICIA BLOUNT MIQ During your visit [...] Diarrhea METFORMIN 05/10/2011 6 - Diarrhea NEOSPORIN (HAACXKAM-JEHXYIHYNF-OM*08/31/2008 2 - Rash Comments: blisters PROTONIX (PANTOPRAZOLE) [...] 2020-03 OBSOLETE Refill (INTMWS) Normal 04-02-2020 [facility] ANA IVORY ([id number]) 1940 [facility] Date Time Provider Department ([id number]) 04/02/20 ALICIA BLOUNT INTMWS During your visit today, we recorded the following informati on about you: Libertad Burdick [facility] 04/02/2020 9:33 AM Signed Patient has been [...] Diarrhea METFORMIN 05/10/2011 6 - Diarrhea NEOSPORIN (PQQREAGU-HVKKSQNXWY-ZH*08/31/2008 2 - Rash Comments: blisters PROTONIX (PANTOPRAZOLE) 01/13/2010 6 - Diarrhea RELAFEN (NABUMETONE) 03/22/2006 8 - GI Upset 11 - Vomiting ACTOS (PIOGLITAZONE HCL) 12/03/2016 7 - Swelling Date Reviewed: 01/27/2020 Reviewed by: Cintia Macias LPN - Fully Assessed Reason for Visit: Refill Request [94] Order(s):Insulin Fancy Gap, Disposable, (EASY TOUCH) 31 gauge x 3/16Use [...] Discontinued During This Encounter Prescriptions - Insulin Fancy Gap, Disposabl e, (EASY TOUCH) 31 gauge x 16 ndle (Discontinued) Use 1 needle for each dose. 2x daily Encounter Status:Closed by CL[facility]ENCE [facility]EVINE [facility]02[facility]) Normal 04-02-2020 [place] [facility] ANA IVORY ([id number]) 1940 [facility] Date Time Provider Department ([id number]) 04/02/20 ALICIA BLOUNT INTWS During your visit today, we recorded the following informati on about you: Libertad Burdick [facility] 04/02/2020 9:36 AM Signed Ana Ivory is calling Alicia daniels MD today to request the following medication, not on her current list, please send to Ana Paula Whaley: codeine-guaiFENesin (VIRTUSSIN AC) 10-10 0 mg/5 mL syrup. Please notify patient once completed. Patient has been identified by name and birthdate. Duration of symptoms: N/A Person calling: self Call patient at: at home [phone] (home) [phone] (cell) Was an appointment scheduled: No Closing statement: Results or non-symptom based questions: Thank you for calling [facility], your call will be returned within the next business day. Libertad Burdick Pss Clarence Berry APRN.CHILD WELFARE CASEWORKER 04/06/2020 7:29 AM Signed Rx sent. PDMP website checked and validated. All prescrip tions have been APPROPRIATELY filled. No suspicious activity was identified. 04/06/2020 by Clarence Berry APRN.CHILD WELFARE CASEWORKER Allergies As of Date: 04/02/2020 Noted Allergy [...] Diarrhea METFORMIN 05/10/2011 6 - Diarrhea NEOSPORIN (HKFVWQBM-AFASPYQMWY-UZ*08/31/2008 2 - Rash Comments: blisters PROTONIX (PANTOPRAZOLE) [...] on 2020-03-13 CNPN Telephone (INTMWS) Normal 03-13-2020 [place] [facility] ANA IVORY ([id number]) 1940 [facility] Date Time Provider Department ([id number]) 03/13/20 ALICIA BLOUNT INTMWS During your visit today, we recorded the following informati on about you: Simran Russell Pss 03/13/2020 10:55 AM Signed Patient calling in needing her PT order faxed to [facility]. Simran Russell Pss Isabela Mendoza Cma [...] Diarrhea METFORMIN 05/10/2011 6 - Diarrhea NEOSPORIN (UJUWHPHM-UVRPDMWMBE-UN*08/31/2008 2 - Rash Comments: blisters PROTONIX (PANTOPRAZOLE) [...] OBSOLETE Refill (INTMWS) Normal 02-27-2020 Mannie mancini [facility] ANA IVORY ([id number]) 1940 [facility] Date Time Provider Department ([id number]) 02/27/20 ALICIA BLOUNT INTVENKAT During your visit [...] Diarrhea METFORMIN 05/10/2011 6 - Diarrhea NEOSPORIN (HBKOPYOX-LYKOLMABBR-JY*08/31/2008 2 - Rash Comments: blisters PROTONIX (PANTOPRAZOLE) [...] Status:Closed by RIDDHI MARIE LPN on 02/27/[facility] Telephone (INTWS) Normal 02-19-2020 [place] [facility] ANA IVORY ([id number]) 1940 [facility] Date Time Provider Department ([id number]) 02/19/20 ALICIA BLOUNT INTWS During your visit today, we recorded the following informati on about you: Mansi Preston LPN 02/19/2020 2:23 PM Signed Patient Robb calling asking for a handicap plac [place] rx, asking for one please. He said has never had one for hi s . would like called when ready for him to berry picker. I explained what he would need t o do with the rx. Please advise Clarence Berry APRN.LOLI 02/20/2020 9:40 AM Signed See below, filed, please process Danielle Guido MA 02/20/2020 10:47 AM Signed Called and LM on to return call to [facility] and ask to speak with [facility] triage nurse. Please update that Rx has [...] Diarrhea METFORMIN 05/10/2011 6 - Diarrhea NEOSPORIN (ODOGWRKT-IMANYFMLNJ-SF*08/31/2008 2 - Rash Comments: blisters PROTONIX (PANTOPRAZOLE) [...] OBSOLETE Refill (INTMWS) Normal 02-18-2020 Mannie mancini [facility] ANA IVORY ([id number]) 1940 [facility] Date Time Provider Department ([id number]) 02/18/20 ALCIIA BLOUNT INTMWS During your visit today, we [...] Diarrhea METFORMIN 05/10/2011 6 - Diarrhea NEOSPORIN (SKEMXIKK-GFXZOPWHOA-VF*08/31/2008 2 - Rash Comments: blisters PROTONIX (PANTOPRAZOLE) [...] on 2020-02-13 CNPN Telephone (INTMWS) Normal 02-13-2020 [place] [facility] ANA IVORY ([id number]) 1940 [facility] Date Time Provider Department ([id number]) 02/13/20 ALICIA BLOUTN INTMWS During your visit today, we recorded [...] to have Physical Thera py done at [facility]. Please fax order and patient will schedule appointment. Yulisa Bills LPN 02/19/2020 7:56 AM Signed Order has been faxed to [facility] as requested. 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 Author Type: Physician Type: Progress Notes Filed: 01/27/2020 4:59 PM Note Text: This note was created using Aegis Lightwaveriter. Subjective Ana Ivory is a 79 year [...] appointment with Dr. Nacho Munguia (Endocrinology at [facility]) at the end of this month. [...] C. difficile diarrhea 10/18/2011 - Cataract 04/17/2013 [facility], Dr. Dada Rodríguez. Mild cataract in L eye- no need for cataract surgery at this time. Continue to follow u p the cataract. 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 At [facility] s time, we anticipate that the [...] twice daily. (Dr Don) - [facility] [place] [place] [facility] (E08.40 , Z79.4) Diabetes mellitus [...] s by mouth once daily. - Insulin Fancy Gap, Disposable, (EASY TOUCH) 31 gauge x 3/16 [...] Negative Negative Ketones, Urine Negative Negative Specific [place], Ur 1.005 - 1.030 1.014 Hemoglobin/Blood,Ur Negative [...] Ratio <30 mg/g 668 (H) Not calculated [place] Free, Serum 3.30 - 19.40 mg/L 19.8 [...] ICD-10-CM 1. Stroke determined by clinical assessment ([facility]) I63.9 Left hemispheric stroke with right sided weakness.Gait insta bility and word finding problems noted. 2. 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 Essential hypertension I10 Fair [...] after appt, reviewed last progress note with GRINDING WHEEL FACER and diagnosis of Bronch iectasis noted.F/U prn [...] outside provider on resul ts of the [place], Lambda and kappa/lambda serum ratio. Discussed they [...] order in scan ed documents--Dr. Pandya at [facility] ordered the test for diagnosis of [...] and/or coordi nating care for the patient. Ftdv-ce-hjjf time was at least 45 minutes. MD bony Rodríguez on 2020-01-27 CNPN Telephone (INTMWS) Normal 01-27-2020 [place] ANA Caro ([id number]) 1940 [facility] Date Time Provider Department ([id number]) 01/27/20 ALICIA BLOUNT INTMWS During your visit [...] notify nurse please? Please advise Clarence Berry APRN.CHILD WELFARE CASEWORKER 01/27/2020 10:56 AM Addendum need supplements added below frequency, route - daily oral? Should be taking these medic ations unless discontinued by provider: sumatriptan as needed (Alicia Bluont MD) and cephalexin (Dr. Don) . See office encounter this date. Juana Muro LPN 01/27/2020 4:11 PM Signed Reviewed supplements, added to Med list with [facility] Nurse. Advised of below recommendat ion, [...] using ABRAM: No Authorizing Provider: CLARENCE BERRY (CHILD WELFARE CASEWORKER) Cranberry-Vitamin C-Vitamin E (CRANBERRY PLUS VITAMIN C) [...] Diarrhea METFORMIN 05/10/2011 6 - Diarrhea NEOSPORIN (JJZRYSOR-BXHQJJQWLU-GC*08/31/2008 2 - Rash Comments: blisters PROTONIX (PANTOPRAZOLE) [...] Status:Closed by ALICIA BLOUNT MD on 01/27/20 [facility] Telephone (INTMWS) Normal 01-27-2020 [place] ANA Caro ([id number]) 1940 [facility] Date Time Provider Department ([id number]) 01/27/20 ALICIA BLOUNT INTMWS During your visit today, we recorded the following informati on about you: Chelsy Vogel RN 01/27/2020 3:42 PM Signed [facility] Speech Therapist Melva #[phone], calls to report breanna n of care for patient. She will visit amna ent 1 x week one and 2 times 2 weeks to assist with compensatory strategies of word finding. No need to call back if agreeable. Chelsy Berry, HEALTH CARE MARKETING MANAGER.CHILD WELFARE CASEWORKER 01/27/2020 3:53 PM Signed [place] Allergies As [...] Diarrhea METFORMIN 05/10/2011 6 - Diarrhea NEOSPORIN (LQLVVESA-UGRZDTEBYK-IP*08/31/2008 2 - Rash Comments: blisters PROTONIX (PANTOPRAZOLE) [...] 2020-01-27 [facility] Office Visit (INTMWS) Normal 01-27-20 [place] [facility] ANA IVORY ([id number]) 1940 [place] Date Time Provider Department ([id number]) 01/27/20 8:40 AM ALICIA BLOUNT INTMWS During your visit today, we recorded the following informati on about you: Pulse Respiration Blood pressure Weight 68/minute 20/minute 140/70 59 kg Alicia Blount MD 01/27/2020 4:59 PM Signed This note was created using Aegis Lightwaveriter. Subjective Ana Ivory is a 79 year [...] appointment with Dr. Nacho Munguia (Endocrinology at [facility]) at the end of this month. Note [...] C. difficile diarrhea 10/18/2011 - Cataract 04/17/2013 [facility], Dr. Dada johnson Mild cataract in L eye- no need for cataract surgery at this time. Continue to follow up the cat aract. 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 At thi s time, we anticipate that the patient will be discharged home once c linically stable. Plan: - Discuss needs with patient. - Collaborate with Case management to facilitate DC process - Will continue to evaluate during the post op period. - Desat study 11/14/14: patient will need home oxygen (2 L with exertion only) - Discharge home today with [facility] care for assistance with chest [...] by mouth twice daily. (Dr Don) - [employer] [facility] [place] [employer] (E08.40, Z79.4) Diabetes mellitus [...] les by mouth once daily. - Insulin Fancy Gap, Disposable, (EASY CARROL CH) 31 gauge x [...] Negative Negative Ketones, Urine Negative Negative Specific [place], Ur 1.005 - 1.030 1.014 Hemoglobin/Blood,Ur Negative [...] Ratio <30 mg/g 668 (H) Not calculated [place] Free, Serum 3.30 - 19.40 mg/L 19.8 [...] ICD-10-CM 1. 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 2. 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, with long-term current use of insulin ([facility]) E08.40 Z79.4 3. Essential hypertension I10 Fair [...] after appt, reviewed last progress note with GRINDING WHEEL FACER and diagnosis of Bronchiectasis noted.F/U prn Though [...] with outside provider on results of the [place], Lambda and kappa/lambda serum ratio. Discussed they [...] order in scanned documents--Dr. Anshul britton at [place] ordered the test for diagnosis of [...] counseling and/or coordinating care for the patient. Hbgf-io-cdqh time was at least 45 minutes. Alicia Blount MD Referring Provider: CLARENCE BERRY (CHILD WELFARE CASEWORKER) [[id number]] Allergies As of Date: 01/27/2020 Noted Allergy [...] Diarrhea METFORMIN 05/10/2011 6 - Diarrhea NEOSPORIN (EKNGGVZJ-RLGJSSPUIX-EG*08/31/2008 2 - Rash Comments: blisters PROTONIX (PANTOPRAZOLE) 01/13/2010 6 - Diarrhea RELAFEN (NABUMETONE) 03/22/2006 8 - GI Upset 11 - Vomiting ACTOS (PIOGLITAZONE HCL) 12/03/2016 7 - Swelling Date Reviewed: 01/27/2020 Reviewed by: Cintia Macias LPN - Fully Assessed Reason for Visit: Follow Up [171] Primary Visit Diagnosis:Stroke determine d by clinical assessment ([facility]) [I63.9] Comment:Left hemispheric stroke with right sided weakness.Gait instability and word finding problems noted. Other Visit Diagnoses:Diabetes 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 co ndition with diabetic neuropathy, with long-term current use of insulin ([facility]) [E08.40, Z79.4] Essential hypertension [I10] Comment:Fair control [...] after appt, reviewed last progress note with GRINDING WHEEL FACER and diagnosis of Bronchiectasis noted.F/U prn Order(s):ketoconazole (NIZORAL) 2 % creamApply 1 application to affected area twice daily. Continue for 1 week after rash resolves.Disp: 3 0 gRfl: 0 Prescriptions as of 01/27/2020 Sig: LANCETS Micro-lancets to work with cu* ASPIRIN 81 MG TABLET,DELAYED * Take 81 mg by mouth once paloa * ATORVASTATIN 20 MG TABLET Take 1 [...] Status:Closed by ALICIA BLOUNT MD on 01/27/20 [facility]INT[facility]) Normal 01-26-2020 [place] [facility] ANA IVORY ([id number]) 1940 [facility] Date Time Provider Department ([id number]) 01/26/20 ALICIA BLOUNT INTMWS During your visit today, we recorded the following informati on about you: Mansi Preston HOME CARE SCHEDULER 01/26/2020 2:29 PM Signed Jannette Blair from [facility] Home Health OT plan of care 2 vis its weekly for 3 weeks working on ADL, strengthening, hand writing. Clarence Berry APRN.CHILD WELFARE CASEWORKER 01/26/2020 2:41 PM Signed [place], see below [...] Diarrhea METFORMIN 05/10/2011 6 - Diarrhea NEOSPORIN (GDMZSCYL-JLSSOXGUQK-GJ*08/31/2008 2 - Rash Comments: blisters PROTONIX (PANTOPRAZOLE) 01/13/2010 6 - Diarrhea RELAFEN (NABUMETONE) 03/22/2006 8 - GI Upset 11 - Vomiting ACTOS (PIOGLITAZONE HCL) 12/03/2016 7 - Swelling Date Reviewed: 01/08/2020 Reviewed by: Isabela Mendoza Investment Trader - Fully Assessed Reason for Visit: OT [...] Status:Closed by CINTIA MACIAS LPN on 01/27/20 [facility] Telephone ([facility]) Normal 01-26-2020 [place] [facility] ANA IVORY ([id number]) 1940 [facility] Time Provider Department ([id number]) 01/26/20 ALICIA BLOUNT During your visit today, [...] calling: self Call patient at: on cell [phone] (home) [phone] (cell) Was an appointment scheduled: No Closing statement: Results or non-symptom based questions: Thank you for calling [facility], your call will be returned within the next business day. Libertad Anthonying Pss Isabela Hernandez Rosalbadal Investment Trader 01/26/2020 3:32 PM Signed Looks like patient has one touch device. Unsure what micro lancets to choose. Please advise. Thank you. Clarence Berry APRN.CHILD WELFARE CASEWORKER 01/27/2020 8:13 AM Signed Rx sent Allergies [...] Diarrhea METFORMIN 05/10/2011 6 - Diarrhea NEOSPORIN (KFPYETCS-LJZZAQPVLP-BN*08/31/2008 2 - Rash Comments: blisters PROTONIX (PANTOPRAZOLE) 01/13/2010 6 - Diarrhea RELAFEN (NABUMETONE) 03/22/2006 8 - GI Upset 11 - Vomiting ACTOS (PIOGLITAZONE HCL) 12/03/2016 7 - Swelling Date Reviewed: 01/08/2020 Reviewed by: Isabela Mendoza Investment Trader - Fully Assessed Reason for Visit: lancets [...] 25 Hydroxy 43.5 31.0-80.0 ng/mL Normal 0 [facility] (73235) Comment: Result Comment: Classificati on of 25 [place] Vitamin D status: Insufficiency/Moderate Defic iency: < or = 30 ng/mL Sufficiency/Optimal Levels: 31 to 80 ng/mL Toxicity: > 100 ng/mL Test performed by chemilumin escent immunoassay. Performed By: #### FT4, TSH, HBA1C, VITD ####[facility] [address] levelandDavid [place] [phone] vitamin b12 on 2019 Cobalamin (Vitamin B12) 234 962-7333 pg/mL Normal 2019 [facility] [Mass/Vol] [place] (99310) Comment: Performed By: #### B12, SERF OL, KLFRS ####[facility]Cmem[facility] sel[facility] hospitalandShawn [place] [address] [phone] urinalysis with microscopic on 2020-01-22 Bilirubin, Urine Negative Negative Normal 01-22-2020 [facility] (95146) Comment: Performed By: #### UAWMIC ## ##[facility]ClevelandDavid [place] [phone]- [phone] Clarity (U) Slightly Cloudy Clear Critically abnormal [facility] (27569) Comment: Performed By: #### UAWMIC ## ##[facility] [address] AveClevelandDavid [place]ille [phone]- [phone] Color (U) Light Yellow Yellow Critically abnormal 020 [facility] (54032) Comment: Performed By: #### UAWMIC ## ##[facility]levelandDavid [place] [phone]- [phone] Comments SEE COMMENT Normal 01-22-2020 [facility] (36160) Comment: Result Comment: N/A Performed By: #### UAWMIC ## ##[facility]levelandDavid [place] [phone]- [phone] Epithelial cells LM.HPF SEE COMMENT Normal 01-11 [facility] (Urine sed) [#/Area] [place] (65297) Comment: Result Comment: Few Squamous Epithelial Cells Performed By: #### UAWMIC ## ##[facility]levelandDavid [place] [phone]- [phone] Glucose Ql (U) Negative Negative Normal 01-22-2020 [facility] (99126) Comment: Performed By: #### UAWMIC ## ##[place] [address]CS[address] [place], [place] [id number]- [phone] Hemoglobin/Blood,Ur Negative Negative Normal 01-22-2020 [facility] (13976) Comment: Performed By: #### UAWMIC ## ##[place] [address], [place] [id number]- [phone] Ketones Ql (U) Negative Negative Normal 01-22-2020 [facility] (80469) Comment: Performed By: #### UAWMIC ## ##[place] [address], [place] [id number]- [phone] Leukest 2+ Negative Critically abnormal 01-22-2020 [facility] (85052) Comment: Performed By: #### UAWMIC ## ##[place] [address] [address], [place] [phone]- [phone] Nitrite Ql (U) Negative Negative Normal 01-22-2020 [facility] (22408) Comment: Performed By: #### UAWMIC ## ##[place] [address] [address] [place], [place] [id number]- [phone] pH (Bld) 6.0 5.0-8.0 Normal 01-22-2020 [facility] (29832) Comment: Performed By: #### UAWMIC ## ##[place] [address] [place], [place] [phone]- [phone] Protein (U) [Mass/Vol] Negative Negative mg/dL Normal 020 [facility] (47160) Comment: Performed By: #### UAWMIC ## ##[place] [address] [place], [place] [phone]- [phone] RBC (U) [#/Vol] 0-3 0-3 Normal 01-22-2020 [facility] (74678) Comment: Performed By: #### UAWMIC ## ##[facility]levelandDavid [place] [phone]- [phone] Specific [place], Ur 1.014 1.005-1.030 Normal 020 [facility] (26614) Comment: Performed By: #### UAWMIC ## ##[facility]levelandDavid [place] [phone]- [phone] Urine Sam Comment SEE COMMENT Normal 01-22-2020 [facility] (74247) Comment: Result Comment: N/A Performed By: #### UAWMIC ## ##[place] [address] [address]the[address] [place] [phone]- [phone] Urobilinogen Qn (U) Negative Negative Normal 01-22-2020 [facility] (38033) Comment: Performed By: #### UAWMIC ## ##[place] [address] [address] [place] [phone]- [phone] WBC (Bld) [#/Vol] 6-10 0-5 Critically abnormal [facility] (76952) Comment: Performed By: #### UAWMIC ## ##[place] [address] [address] [place] [phone]- [phone] tsh on 2020-01-22 TSH Qn 3.670 0.270-4.200 uU/mL Normal 01-22-2020 [facility] (74171) Comment: Performed By: #### FT4, TSH, HBA1C, VITD ####[facility] levelandDavid [place] [phone] kappa/abraham,free,ser on 2020-01-22 K/L Ratio, Serum 1.69 0.26-1.65 High 01-22-2020 [facility] (12484) Comment: Performed By: #### B12, SERF OL, KLFRS ####[facility] AveClevelKimberly [place] [address] [phone] [place], Free, Serum 19.8 3.30-19.40 mg/L High 01-22-2020 [facility] (14618) Comment: Result Comment: Test perform ed by an immunoturbidimetric assay on Optilite instrument from [facility] . Immunoglobulin free light chain assay results should be interpreted in con junction with other tests and in correlation with clinical picture. Performed By: #### B12, SERF OL, KLFRS ####[facility] [place] [address] [phone] Lambda, Free, Serum 11.7 5.7-26.3 mg/L Normal 01-22-2020 [facility] (46067) Comment: Result Comment: Test perform ed by an immunoturbidimetric assay on Optilite instrument from [facility] . Immunoglobulin free light chain assay results should be interpreted in con junction with other tests and in correlation with clinical picture. Performed By: #### B12, SERF OL, KLFRS ####[place] [id number] [place] [address] [phone] hemoglobin a1c on 2 HbA1c (Bld) [Mass fraction] 7.2 4.3-5.6 % High [facility] (60378) Comment: Result Comment: [place] Edilma betes Association guidelines indicate that patients with HgbA1c in the range 5.7-6.4% are at increased risk for development of diabetes, and intervention by lifestyle modification may be beneficial. HgbA1c greater o r equal to 6.5% is considered diagnostic of diabetes. Performed By: #### FT4, TSH, HBA1C, VITD ####[facility] [place], [place] [phone] HbA1c (Bld) [Mass fraction] 160 mg/dL Normal [facility] (57683) Comment: Result Comment: eAG: (Estima amando average glucose) is a calculated value from HgbA1c and is hardware supplies sales representative of the average blood glucose level in the last 2-3 month period. Performed By: #### FT4, TSH, HBA1C, VITD ####[facility] [address] [place], [place] [phone] free t4 on Free T4 [Mass/Vol] 1.1 0.9-1.7 ng/dL Normal 01-22-2020 [facility] (17924) Comment: Performed By: #### FT4, TSH, HBA1C, VITD ####[facility] [address] [place], [place] [phone] folate, serum on 30-01-11 Folate [Mass/Vol] 13.8 >4.7 ng/mL Normal 01-22-2020 [facility] (61369) Comment: Performed By: #### B12, SERF OL, KLFRS ####[facility] [address], [place] [phone] comp metabolic panel on 2020-01-22 Albumin [Mass/Vol] 4.3 3.9-4.9 g/dL Normal 01-22-2020 [facility] (02081) ALP [Catalytic 83 34-123 U/L Normal 01-22-2020 [facility] activity/Vol] [place] and (46693) ALT [Catalytic 14 7-38 U/L Normal 01-22-2020 [facility] activity/Vol] Clevel and (34682) Anion gap 9 9-18 mmol/L Normal 01-22-2020 [facility] [Moles/Vol] Clevelan d (15712) AST [Catalytic 14 13-35 U/L Normal 01-22-2020 [facility] activity/Vol] Clevel and (27340) Bilirubin [Mass/Vol] 0.4 0.2-1.3 mg/dL Normal 0 [facility] (18106) Calcium [Mass/Vol] 9.3 8.5-10.2 mg/dL Normal 01-22-2020 [facility] (93680) Chloride [Moles/Vol] 103 97-105 mmol/L Normal 0 [facility] (58953) CO2 [Moles/Vol] 27 22-30 mmol/L Normal 01-22-2020 [facility] (42365) Creatinine 0.61 0.58-0.96 mg/dL Normal 01-22-2020 [facility] [Mass/Vol] [place] (13381) eGFR- Amer. >60 Normal 01-22-2020 [facility] (42147) GFR/1.73 sq M >60 mL/min/{1.73_m Normal 01-22-2020 [facility] predicted among 2} Clev rufina (18567) non-blacks MDRD (S/P/Bld) [Vol rate/Area] Comment: Result [...] Glucose [Mass/Vol] 168 74-99 mg/dL High 01-22-2020 [facility] (67283) Comment: Result Comment: The [place] Diabetes Association (ADA) provides guidance for cutoff [...] for diagnosis of diabetes. Reference: Standards of [facility] Care in Diabetes 2016, [place] Diabetes Association. Diabetes Care. 2016.39(Suppl 1). Potassium [Moles/Vol] 4.2 3.7-5.1 mmol/L Normal 01-22-20 20 [facility] (38377) Protein [Mass/Vol] 7.2 6.3-8.0 g/dL Normal 01-22-2020 [facility] (87650) Sodium [Moles/Vol] 139 136-144 mmol/L Normal 01-22-2020 [facility] (99305) Urea nitrogen [Mass/Vol] 12 7-21 mg/dL Normal 01-21 [facility] (11938) cbc on 2020-01-22 Absolute nRBC <0.01 <0.01 Normal 01-22-2020 [facility] (08166) Erythrocyte distribution 12.7 11.5-15.0 % Normal 01-21 [facility] width (RBC) [Ratio] [place] (40735) Hematocrit (Bld) [Volume 38.1 36.0-46.0 % Normal 01-21 [facility] fraction] [place] (59035) Hemoglobin (Bld) 13.2 11.5-15.5 g/dL Normal 01-22-2020 [facility] [Mass/Vol] [place] (58110) MCH (RBC) [Entitic mass] 31.2 26.0-34.0 pG Normal 01-21 [facility] (41582) MCHC (RBC) [Mass/Vol] 34.6 30.5-36.0 g/dL Normal 01-22-20 20 [facility] (90135) MCV (RBC) [Entitic vol] 90.1 80.0-100.0 fL Normal 01-21 [facility] (14242) Platelet mean volume 9.4 9.0-12.7 fL Normal 0 [facility] (Bld) [Entitic vol] [place] (51925) Platelets (Bld) [#/Vol] 219 150-400 k/uL Normal 2019 [facility] (56157) RBC (Bld) [#/Vol] 4.23 3.90-5.20 m/uL Normal 01-22-2020 [facility] (98482) WBC (Bld) [#/Vol] 5.65 3.70-11.00 k/uL Normal 01-22-2020 [facility] (40340) albumin/creat ratio on 2020-01-22 Albumin Urine Random <12.0 Normal 0 [facility] (39474) Comment: Performed By: #### UACR #### [facility] [address] [place], [place] [phone] Albumin/Creat Ratio Not calculated <30 Normal 01-21 [facility] (52238) Comment: Performed By: #### UACR #### [facility] [address] [place], [place] [phone] Creatinine,Urine,Ran 68.1 20-300 mg/dL Normal 0 [facility] (33046) Comment: Performed By: #### UACR #### [facility] [place], [place] [phone] cnpn on 2020-01-21 CNPN Telephone (INTMWS) Normal 01-21-2020 [place] [facility] ANA IVORY ([id number]) 1940 [facility] Date Time Provider Department () 01/21/20 ALICIA BLOUNT INTMWS During your visit today, we recorded the following informati on about you: Minor Zamora 01/21/2020 1:45 PM Signed Marlene Osorio / [facility] PT calls with plan of care. [...] Diarrhea METFORMIN 05/10/2011 6 - Diarrhea NEOSPORIN (LUUEQULX-MFFKQTVTFX-OT*08/31/2008 2 - Rash Comments: blisters PROTONIX (PANTOPRAZOLE) 01/13/2010 6 - Diarrhea RELAFEN (NABUMETONE) 03/22/2006 8 - GI Upset 11 - Vomiting ACTOS (PIOGLITAZONE HCL) 12/03/2016 7 - Swelling Date Reviewed: 01/08/2020 Reviewed by: Isabela Mendoza Investment Trader - Fully Assessed Reason for Visit: PT [...] DEVINE LPN on 01/21/20 nemesion on [facility]) Normal 01-20-2020 [place] ANA Caro ([id number]) 1940 [place] [address] [facility] Date Time Provider Department ([id number]) 01/20/20 ALICIA BLOUNT INTMWS During your visit today, we recorded the following informati on about you: Chelsy Vogel RN 01/20/2020 10:09 AM Signed Granddaughter Coby calls- Requests referral to endocr inology as sugars more out of control recently. Would like patient to see Dr. Munguia at [place], please fax to #[phone]. Please review and advise. MANNY Santamaria MD 01/20/2020 10:20 AM Signed Filed order Noted granddaughter requested referral to Dr. Munguia. Have patient let me know how sugars are doing as well. Mansi Preston HOME CARE SCHEDULER 01/20/2020 10:48 AM Signed Phoned grand daughter [...] Diarrhea METFORMIN 05/10/2011 6 - Diarrhea NEOSPORIN (RUCDNORC-EAXCHXZRGO-WY*08/31/2008 2 - Rash Comments: blisters PROTONIX (PANTOPRAZOLE) 01/13/2010 6 - Diarrhea RELAFEN (NABUMETONE) 03/22/2006 8 - GI Upset 11 - Vomiting ACTOS (PIOGLITAZONE HCL) 12/03/2016 7 - Swelling Date Reviewed: 01/08/2020 Reviewed by: Isabela Mendoza Investment Trader - Fully Assessed Reason for Visit: endocrinology consult [Other] Primary Visit Diagnosis:Type 2 diabetes mellitus without c omplication, with long-term current use of insulin ([facility]) [E11.9, Z79.4] Other Visit Diagnosis:Type 2 diabetes mellitus with hypergly cemia, with long-term current use of insulin ([facility]) [E11.65, Z79.4] Order(s):CONSULT TO ENDOCRINOLOGY [9007] Order #: [id number] Qty: 1 FUTURE Prescriptions as of 01/20/2020 [...] 01/20/20 progress on 2019-12 PROGRESS HNO ID: [id number] Normal 01-08-2020 [facility] Author: Alicia Blount [place] ([id number]) Service: ? Author Type: Physician Type: Progress Notes Filed: 01/19/2020 12:04 AM Note Text: This note was created using Aegis Lightwaveriter. Subjective Ana Ivory is a 79 year old female. Transitional Care Management Progress Note The patients TCM visit was performed within the 7 days of di scharge. Patient's Date of discharge: 01/03/20 Date of initial coordinator contact after discharge: 01/06/20 Discharge diagnosis: CVA Medication review completed Yes Alicia lBount MD Provider Documentation: In follow-up of hospitalization, Ana Ivory is a 79 ye ar old female with the chief complaint of stroke. Review discharge summary . Patient was admitted for evaluation of right sided weakness and decr eased sensation that had started the day prior to presenting in e emergency department at [facility]. Also noticed decre ased ability to control [...] visit. TRANSITION CARE MANAGEMENT (TCM) INITIAL CONTACT Rail Switch Operator Outreach Provider Action/FYI: Initial contact with patient post discharge, spoke to myrtle sumner Patient identified by name and . TRANSITION CARE MANAGEMENT INITIAL OUTREACH DOCUMENTATION: Date of Outreach: 01/06/2020 Outreach Attempt 1: Contact Made Date of Discharge 01/03/2020 Some recent data might be hidden SUMMARY: -Pt discharged from [facility] on 01/03/20. -Admitted for: CVA Do [...] C. difficile diarrhea 10/18/2011 - Cataract 04/17/2013 [facility] [place], Dr. Dada Rodríguez. Mild cataract in L eye- no need for cataract surgery at this time. Continue to follow u p the cataract. 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 At thi s time, we anticipate that the patient will be discharged home once cli nically stable. Plan: - Discuss needs with patient. - Collaborate [facility] Case management to facilitate DC process - [...] daily. (Dr Don) - Miscellaneous Medical Supply [facility] [place] (E08.40 , Z79.4) Diabetes mellitus [...] s by mouth once daily. - Insulin Fancy Gap, Disposable, (EASY TOUCH) 31 gauge x 3/16 [...] ICD-10-CM 1. Stroke determined by clinical assessment ([facility]) I63.9 Left hemispheric with right sided weakness [...] with long- term current use of insulin ([facility]) E11.9 Z79.4 Discussed hospital stay and evaluation [...] and/or coordi nating care for the patient. Yuzz-nz-gffs time was at least 40 minutes. Alicia Blount MD PROGRESS HNO ID: [id number] Normal 01-08-2020 [facility] Author: Alicia Blount [place] ([id number]) Service: ? Author Type: Physician Type: Progress Notes Filed: 01/08/2020 8:53 AM Note Text: Below noted cnov on 2020-01-08 CNOV Office Visit (INTMWS) Normal 01-07-20 20 [place] [facility] ANA IVORY ([id number]) 1940 [facility] Date Time Provider Department ([id number]) 01/08/20 9:00 AM ALICIA BLOUNT INTMWS During your visit today, we recorded the following informati on about you: Temperature Pulse Respiration Blood pressure 96 degrees 70/minute 16/minute 110/78 Weight 58.5 kg Alicia Blount MD 01/19/2020 12:04 AM Signed This note was created using Aegis Lightwaveriter. Subjective Ana Ivory is a 79 year [...] presenting in the emergency departmen t at [facility]. Also noticed decreased ability to control her [...] visit. TRANSITION CARE MANAGEMENT (TCM) INITIAL CONTACT Rail Switch Operator Outreach Provider Action/FYI: Initial contact with patient post discharge, spoke to myrtle sumner Patient identified by name and . TRANSITION CARE MANAGEMENT INITIAL OUTREACH DOCUMENTATION: Date of Outreach: 01/06/2020 Outreach Attempt 1: Contact Made Date of Discharge 01/03/2020 Some recent data might be hidden SUMMARY: -Pt discharged from [facility] on 01/03/20. -Admitted for: CVA Do [...] C. difficile diarrhea 10/18/2011 - Cataract 04/17/2013 [facility], Dr. Dada johnson Mild cataract in L eye- no need for cataract surgery at this time. Continue to follow up the cat aract. 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 At thi s time, we anticipate that the patient will be discharged home once c linically stable. Plan: - Discuss needs with patient. - Collaborate with Case management to facilitate DC process - Will continue to evaluate during the post op period. - Desat study 11/14/14: patient will need home oxygen (2 L with exertion only) - Discharge home today with [facility] care for assistance with chest [...] by mouth twice daily. (Dr Don) - MembraneXcellaneous Medical Supply [facility] [place] Custom Ortho tics (E08.40, Z79.4) Diabetes mellitus [...] les by mouth once daily. - Insulin Fancy Gap, Disposable, (EASY CARROL CH) 31 gauge x [...] ICD-10-CM 1. Stroke determined by clinical assessment ([facility]) I63.9 Left hemispheric with right sided weakne [...] counseling and/or coordinating care for the patient. Solq-df-nmko time was at least 40 minutes. Alicia Blount MD Referring Provider: ALICIA BLOUNT [[id number]] Allergies As of Date: 01/08/2020 Noted Allergy [...] Diarrhea METFORMIN 05/10/2011 6 - Diarrhea NEOSPORIN (EFIELXDX-NHCZWADLVD-LC*08/31/2008 2 - Rash Comments: blisters PROTONIX (PANTOPRAZOLE) 01/13/2010 6 - Diarrhea RELAFEN (NABUMETONE) 03/22/2006 8 - GI Upset 11 - Vomiting ACTOS (PIOGLITAZONE HCL) 12/03/2016 7 - Swelling Date Reviewed: 01/08/2020 Reviewed by: Isabela Mendoza Investment Trader - Fully Assessed Reason for Visit: Transition Of Care [4074] Primary Visit Diagnosis:Stroke determine d by clinical assessment ([facility]) [I63.9] Comment:Left hemispheric with right sided weakness [...] complication, with long-term current use of insulin ([facility]) [E11.9, Z79.4] Order(s):atorvastatin (LIPITOR) 20 mg tabletTake [...] on 2020-01-08 CNCO Letter Text Normal 01-08-2020 [facility] ([id number]) progress on 2019-12 PROGRESS HNO ID: [id number] Normal 01-06-2020 [facility] Author: Alicia Blount [place] ([id number]) Service: ? Author Type: Physician Type: Progress Notes Filed: 01/08/2020 8:53 AM Note Text: TRANSITION CARE MANAGEMENT (TCM) INITIAL CONTACT Rail Switch Operator Outreach Provider Action/FYI: Initial contact with patient post discharge, spoke to myrtle sumner Patient identified by name and . TRANSITION CARE MANAGEMENT INITIAL OUTREACH DOCUMENTATION: Date of Outreach: 01/06/2020 Outreach Attempt 1: Contact Made Date of Discharge 01/03/2020 Some recent data might be hidden SUMMARY: -Pt discharged from [facility] on 01/03/20. -Admitted for: CVA Do [...] 2019-12 OBSOLETE Refill (INTMWS) Normal 01-06-2020 [facility] ANA IVORY ([id number]) 1940 [facility] Date Time Provider Department ([id number]) 01/06/20 ALICIA BLOUNT INTMWS During your visit today, we recorded the following informati on about you: Mitzi Crystalelder [facility] 01/06/2020 9:01 AM Signed Patient has been [...] need to notify patient. Mitzi Crystalelder [facility] Juana Muro LPN 01/06/2020 11:36 AM Signed [...] Diarrhea METFORMIN 05/10/2011 6 - Diarrhea NEOSPORIN (SCXPJRAC-MCUHOQSOPM-PY*08/31/2008 2 - Rash Comments: blisters PROTONIX (PANTOPRAZOLE) [...] CNPTOUTREACH Patient Outreach (INTMWS) Normal 0 01-06-2020 [place] [facility] ANA IVORY ([id number]) 1940 [facility] Date Time Provider Department ([id number]) 01/06/20 ALICIA BLOUNT INTMWS During your visit today, we recorded the following informati on about you: Alicia Blount MD 01/08/2020 8:53 AM Signed TRANSITION CARE MANAGEMENT (TCM) INITIAL CONTACT Rail Switch Operator Outreach Provider Action/FYI: Initial contact with patient post discharge, spoke to myrtle sumner Patient identified by name and . TRANSITION CARE MANAGEMENT INITIAL OUTREACH DOCUMENTATION: Date of Outreach: 01/06/2020 Outreach Attempt 1: Contact Made Date of Discharge 01/03/2020 Some recent data might be hidden SUMMARY: -Pt discharged from [facility] on 01/03/20. -Admitted for: CVA Do [...] Diarrhea METFORMIN 05/10/2011 6 - Diarrhea NEOSPORIN (DBMOTUTI-UNRCLCXKHB-HR*08/31/2008 2 - Rash Comments: blisters PROTONIX (PANTOPRAZOLE) [...] BLOUNT MD on 01/08/20 cnpn on 2020-01-06 [facility] Normal 01-06-2020 [place] [facility] ANA IVORY ([id number]) 1940 [facility] Date Time Provider Department ([id number]) 01/06/20 ALICIA BLOUNT INTMWS During your visit today, we recorded the following informati on about you: Sahra Harman RN 01/06/2020 2:54 PM Signed Pt's family member called, verified pt by name a nd birthdate. They would like to have pt start home PT AND ST with [facility]. If PCP approves, please notify [facility]. Pt has apt with provider on 01-08-2020 Sahra Blount MD 01/07/2020 1:25 PM Signed Approve as requested Juana Muro LPN 01/07/2020 2:15 PM Signed Patient scheduled to see Dr. Blount, . Will send Order, Demographic sheet, Med list, Office notes to [phone]. Juana britton LPN Allergies As of Date: [...] Diarrhea METFORMIN 05/10/2011 6 - Diarrhea NEOSPORIN (ZBCNNRHS-DEUVAKCZLJ-EF*08/31/2008 2 - Rash Comments: blisters PROTONIX (PANTOPRAZOLE) [...] on 01/07/20 CNPN Telephone (INTMWS) Normal 01-06-2020 [place] [facility] ANA IVORY ([id number]) 1940 [facility] Date Time Provider Department ([id number]) 01/06/20 ALICIA BLOUNT INTErisWS During your visit [...] Diarrhea METFORMIN 05/10/2011 6 - Diarrhea NEOSPORIN (NZGMPAAJ-HLOKRUMCZQ-JM*08/31/2008 2 - Rash Comments: blisters PROTONIX (PANTOPRAZOLE) [...] OBSOLETE Refill (INTMWS) Normal 12-03-2019 Mannie mancini [facility] ERIKANA LOWE Summer ([id number]) 1940 [facility] Date Time Provider Department ([id number]) 12/03/19 ALICIA BLOUNT INTMWS During your visit today, we recorded the following informati on about you: Sofy Muleler Pss 12/03/2019 9:44 AM Signed Patient has [...] Diarrhea METFORMIN 05/10/2011 6 - Diarrhea NEOSPORIN (WMEOFMEE-ZRQPORATOS-UW*08/31/2008 2 - Rash Comments: blisters PROTONIX (PANTOPRAZOLE) [...] on 2019-10-28 CNPN Telephone (INTMWS) Normal 10-28-2019 [place] [facility] ANA IVORY ([id number]) 1940 [facility] Date Time Provider Department ([id number]) 10/28/19 ALICIA BLOUNT INTVENKAT During your visit [...] Diarrhea METFORMIN 05/10/2011 6 - Diarrhea NEOSPORIN (EDFUOTSG-REXWLATEHP-QV*08/31/2008 2 - Rash Comments: blisters PROTONIX (PANTOPRAZOLE) [...] * *Final Report* * * Normal 10-24-2019 [place] AP/LAT/LOJA DATE OF EXAM: Oct 24 2019 11:23AM Clinic WOX 5329 - XR FACIAL BONES 3V AP/LAT/LOJA / [id number] [place] PROCEDURE REASON: multiple diagnoses ([id number]) * * * * Physician Interpretation * [...] occult frac ture. IMPRESSION: No Acute Fracture. Transition Of Care Specialist: PSCB Transcribe Date/Time: Oct 24 2019 11:42A Dictated by : MANSI KOROMA MD This examination was interpreted and the report reviewed and electronically signed by: MANSI KOROMA MD on Oct 24 2019 11:43AM EST [id number] progress on 2019-10 PROGRESS HNO ID: [id number] Normal 10-24-2019 [facility] Author: Juanita StacyRt) Jessica Leiva [place] ([id number]) Service: ? Author Type: Lining Stitcher Type: Progress Notes Filed: 10/24/2019 11:24 AM [...] 24, 2019 11:10 AM PROGRESS HNO ID: [id number] Normal 10-24-2019 [facility] Author: Alicia Blount [place] ([id number]) Service: ? Author Type: Physician Type: Progress Notes Filed: 10/27/2019 5:40 PM Note Text: This note was created using Aegis Lightwaveriter. Subjective Ana Ivory is a 79 year old female. Patient presents with: Recheck: 3 month follow up SUBJECTIVE: Ana Ivory is a 79 year old year old lady here today f or 3 month follow up appointment for review of medical conditions. Ongoing balance issues. noted DM neuropathy Nasal contusion noted--last Sunday--calender wind up tender. (at night) No epistaxis. No problems with breathing through nares at this time. Discussed [id number]--abxhklng wanted her to not go out. Lung history reviewed plus age and DM. Needs cough med prn. No adverse effects. 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 difficile diarrhea 10/18/2011 - Cataract 04/17/2013 [facility] [place], Dr. Dada Rodríguez. Mild cataract in L eye- no need for cataract surgery at this time. Continue to follow u p the cataract. 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 At thi s time, we anticipate that the patient will be discharged home once cli nically stable. Plan: - Discuss needs with patient. - Collaborate [facility] Case management to facilitate DC process - Will continue to evalu ate during the post op period. - Desat study 11/14/14: patient will need home oxygen (2 L with exertion only) - Discharge home today with home ca re for assistance with chest tube to [facility]. Return to [facility] on Sun11/18/[address] [...] by mouth twice daily. (Dr Don) - MembraneXcellaneous Medical Supply [facility] [place] [employer] (E08.40 , Z79.4) Diabetes mellitus [...] s by mouth once daily. - Insulin Fancy Gap, Disposable, (EASY TOUCH) 31 gauge x 16 [...] and/or coordi nating care for the patient. Cwzl-ax-rtqa time was at least 35 minutes. MD bony Rodríguez on 2019-10-24 CNPN Telephone (INTMWS) Normal 10-24-2019 [place] ANA Caro ([id number]) 1940 [facility] Date Time Provider Department ([id number]) 10/24/19 ALICIA BLOUNT INTMWS During your visit today, we recorded the following informati on about you: Breonna Trent, RN, RN 10/24/2019 4:09 PM Signed Pt calls requesting results of xray from today. Clarence Berry APRN.CHILD WELFARE CASEWORKER 10/24/2019 4:32 PM Signed No acute fracture [...] Diarrhea METFORMIN 05/10/2011 6 - Diarrhea NEOSPORIN (YGTGGKBI-TZTOIGJUAI-UR*08/31/2008 2 - Rash Comments: blisters PROTONIX (PANTOPRAZOLE) [...] 2019-10-24 CNOV Office Visit (INTMWS) Normal 10-24-19 [place] [facility] ANA IVORY ([id number]) 1940 [facility] Date Time Provider Department ([id number]) 10/24/19 9:20 AM ALICIA BLOUNT During your visit today, we recorded the following informati on about you: Alicia Blount MD 10/27/2019 5:40 PM Signed This note was created using Bandhappy. Subjective Ana Ivory is a 79 year old female. Patient presents with: Recheck: 3 month follow up SUBJECTIVE: Ana Ivory is a 79 year old year old lady here today for 3 month follow up appointment for review of medical conditions. Ongoing balance issues. noted DM neuropathy Nasal contusion noted--last Sunday--calender wind up tender. (at night) No epistaxis. No problems with breathing through nares at this time. Discussed [id number]--evekqovr wanted her to not go out. Lung history reviewed plus age and DM. Needs cough med prn. No adverse effects. 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 difficile diarrhea 10/18/2011 - Cataract 04/17/2013 [facility] [place], Dr. Dada johnson Mild cataract in L eye- no need for cataract surgery at this time. Continue to follow up the cat aract. 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 At thi s time, we anticipate [...] daily. (Dr Don) - Miscellaneous Medical Supply [facility] [place]o tics (E08.40, Z79.4) Diabetes mellitus [...] les by mouth once daily. - Insulin Fancy Gap, Disposable, (EASY CARROL ) 31 gauge x [...] counseling and/or coordinating care for the patient. Rkuy-aa-wtro time was at least 35 minutes. Alicia [...] Diarrhea METFORMIN 05/10/2011 6 - Diarrhea NEOSPORIN (UFBQSRLU-NPCSRPFTSW-EC*08/31/2008 2 - Rash Comments: blisters PROTONIX (PANTOPRAZOLE) [...] Hair thinning [L65.9] Order(s):mirabegron (MYRBETRIQ) 50 mg Vk88Equv 1 tablet by m out twice daily.Disp: Rfl: XR FACIAL BONES 3V AP/LAT/LOJA [[id number]] Order #: [id number] FUTURE codeine-guaiFENesin (VIRTUSSIN AC) 10-100 mg/5 [...] 11 URINALYSIS WITH MICROSCOPIC [SQUAWMIC] Order #: [id number] F UTURE ALBUMIN/CREAT RATIO RND UR [SQUACR] Order #: [id number] FUTU RE HGB A1C [CIHQO5S] Order #: [id number] FUTURE COMP METABOLIC PANEL [SQCMP] Order #: [id number] FUTURE CBC [SQCBC] Order #: [id number] FUTURE VITAMIN D 25 HYDROXY [SQVITD] Order #: [id number] FUTURE TSH BLD [SQTSH] Order #: [id number] FUTURE T4 FREE/FREE THYROX [SQFT4] Order #: [id number] FUTURE Prescriptions as of 10/24/2019 Sig: CODEINE [...] 25 Hydroxy 38.3 31.0-80.0 ng/mL Normal 0 [facility] (07648) Comment: Result Comment: Classificati on of 25 [place] Vitamin D status: Insufficiency/Moderate Defic iency: < or = 30 ng/mL Sufficiency/Optimal Levels: 31 to 80 ng/mL Toxicity: > 100 ng/mL Test performed by chemilumin escent immunoassay. Performed By: #### VITD, LIP B, HBA1C ####[place] [address] [phone] tsh on 2019-10-20 TSH Qn 4.160 0.270-4.200 uU/mL Normal 10-20-2019 [facility] (95701) Comment: Performed By: #### TSH ####[place] [phone] lipid panel, basic on 2019-10-20 Cholesterol [Mass/Vol] 167 <200 mg/dL Normal 020 [facility] (00833) Comment: Result Comment: <200 mg/dL, Desirable 200-239 mg/dL, Borderline hi gh >239 mg/dL, High Performed By: #### VITD, LIP B, HBA1C ####[place] [address] [phone] Cholesterol in HDL 54 >39 mg/dL Normal 10-20-2019 [facility] [Mass/Vol] (25333) Comment: Result Comment: 40-59 mg/dL, Acceptable >59 mg/dL, High: Negative ri sk factor for coronary heart disease <40 mg/dL, Low: Positive ris k factor for coronary heart disease Performed By: #### VITD, LIP B, HBA1C ####[place] [address] [phone] Cholesterol in LDL 90 <100 mg/dL Normal 10-20-2019 [facility] [Mass/Vol] [place] ([address]153) Comment: Result Comment: <100 mg/dL, Optimal 100-129 mg/dL, Near optimal/ above optimal 130-159 mg/dL, Borderline hi gh 160-189 mg/dL, High >189 mg/dL, Very high Secondary prevention optimal LDL Cholesterol levels are recommended to be < 70 mg/dL Performed By: #### VITD, LIP B, HBA1C ####[place] [id number] [place] [address] [phone] Fasting Time 10 hrs Normal 10-20-[address] [facility] (59725) Comment: Result Comment: Corrected on 10/19 AT 0916: Previously reported as 1 Performed By: #### VITD, LIP B, HBA1C ####[address] [place] [address] [phone] LDL:HDL Ratio 1.67 <2.54 Normal 10-20-2019 [facility] (72607) Comment: Result Comment: Reference: 1. National Cholesterol Educ ation Program ATP III Guideline At-A-Glance Quick Desk Reference: National Heart, Lung, and Blood [place]. National Institutes of Health. 2001: NIH Publication No. 01-3305. 2. An International Atherosc lerosis Society position paper: global recommendations for the management of dyslipidemia: executive summary, Atherosclerosis. 2014: 232(2):410-413. Performed By: #### VITD, LIP B, HBA1C ####[address] [place] [address] [phone] Non HDL Cholesterol 113 <130 mg/dL Normal 10-20-2019 [facility] (21848) Comment: Result Comment: <130 mg/dL, Optimal 130-159 mg/dL, Near optimal/ above optimal 160-189 mg/dL, Borderline hi gh 190-219 mg/dL, High >219 mg/dL, Very high Secondary prevention optimal non HDL Cholesterol levels are recommended to be < 100 mg/dL Performed By: #### VITD, LIP B, HBA1C ####[place] [id number] [place] [address] [phone] TC:HDL Ratio 3.09 <5.10 Normal 10-20-[address] [facility] (51157) Comment: Performed By: #### VITD, LIP B, HBA1C ####[place] [id number] [address] Triglyceride [Mass/Vol] 115 <150 mg/dL Normal 2019 [facility] (71650) Comment: Result Comment: <150 mg/dL, Normal 150-199 mg/dL, Borderline hi gh 200-499 mg/dL, High >499 mg/dL, Very high Performed By: #### VITD, LIP B, HBA1C ####[place] [address] [address] [place] [address] VLDL Cholesterol 23 <30 mg/dL Normal 10-20-2019 [facility] (76026) Comment: Performed By: #### VITD, LIP B, HBA1C ####[place] [address] [address] [place] [address] [phone] hemoglobin a1c on 2 HbA1c (Bld) [Mass fraction] 7.4 4.3-5.6 % High [facility] (32515) Comment: Result Comment: [place] Edilma betes Association guidelines indicate that patients with HgbA1c in the range 5.7-6.4% are at increased risk for development of diabetes, and intervention by lifestyle modification may be beneficial. HgbA1c greater o r equal to 6.5% is considered diagnostic of diabetes. Performed By: #### VITD, LIP B, HBA1C ####[place] [address] [address] [place] [address] [phone] HbA1c (Bld) [Mass fraction] 166 mg/dL Normal [facility] (31959) Comment: Result Comment: eAG: (Estima amando average glucose) is a calculated value from HgbA1c and is hardware supplies sales representative of the average blood glucose level in the last 2-3 month period. Performed By: #### VITD, LIP B, HBA1C ####[place] [address] [address] [place] [address] [phone] comp metabolic panel on 2019-10-20 Albumin [Mass/Vol] 4.1 3.9-4.9 g/dL Normal 10-20-2019 [facility] (40081) ALP [Catalytic 82 34-123 U/L Normal 10-20-2019 [facility] activity/Vol] [facility] and (27204) ALT [Catalytic 7 7-38 U/L Normal 10-20-2019 [facility] activity/Vol] [facility] (65375) Anion gap 10 9-18 mmol/L Normal 10-20-2019 [facility] [Moles/Vol] [facility] (36233[facility] AST [Catalytic 11 13-35 U/L Low 10-20-2019 [facility] activity/Vol] [facility] and (63370) Bilirubin [Mass/Vol] 0.3 0.2-1.3 mg/dL Normal 0 [facility] (32519) Calcium [Mass/Vol] 8.6 8.5-10.2 mg/dL Normal 10-20-2019 [facility] (38375) Chloride [Moles/Vol] 104 97-105 mmol/L Normal 0 [facility] (76726) CO2 [Moles/Vol] 26 22-30 mmol/L Normal 10-20-2019 [facility] (42854) Creatinine 0.61 0.58-0.96 mg/dL Normal 10-20-2019 [facility] [Mass/Vol] [place] (30592) eGFR- Amer. >60 Normal 10-20-2019 [facility] (79935) GFR/1.73 sq M >60 mL/min/{1.73_m Normal 10-20-2019 [facility] predicted among 2} [facility] (73101) non-blacks MDRD (S/P/Bld) [Vol rate/Area] Comment: Result [...] Glucose [Mass/Vol] 163 74-99 mg/dL High 10-20-2019 [facility] (35899) Comment: Result Comment: The [place] Diabetes Association (ADA) provides guidance for cutoff [...] for diagnosis of diabetes. Reference: Standards of [facility] Care in Diabetes 2016, [place] Diabetes Association. Diabetes Care. 2016.39(Suppl 1). Potassium [Moles/Vol] 3.7 3.7-5.1 mmol/L Normal 10-20-19 [facility] (71557) Protein [Mass/Vol] 6.6 6.3-8.0 g/dL Normal 10-20-2019 [facility] (03431) Sodium [Moles/Vol] 140 136-144 mmol/L Normal 10-20-2019 [facility] (50359) Urea nitrogen [Mass/Vol] 14 7-21 mg/dL Normal 10-19 [facility] (05253) cnpn on 2019-10-20 CNPN Telephone (FAMPWS) Normal 10-20-2019 [place] [facility] ANA IVORY ([id number]) 1940 [facility] Date Time Provider Department (36587) 10/20/19 ALICIA BLOUNT FAMPWS During your visit today, we recorded the following informati on about you: Laura Marr HOME CARE SCHEDULER 10/20/2019 10:58 AM Signed Pt calls to report she had labs done today. Pt i s requesting to get TSH added to orders. 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 Pt reports she has been losing a lot of hair lately. Laura Marr HOME CARE SCHEDULER Riddhi Marie HOME CARE SCHEDULER 10/20/2019 2:59 PM Signed Lab notified. Test [...] Diarrhea METFORMIN 05/10/2011 6 - Diarrhea NEOSPORIN (RHLIVRFW-UYOPHUZAJE-DN*08/31/2008 2 - Rash Comments: blisters PROTONIX (PANTOPRAZOLE) 01/13/2010 6 - Diarrhea RELAFEN (NABUMETONE) 03/22/2006 8 - GI Upset 11 - Vomiting ACTOS (PIOGLITAZONE HCL) 12/03/2016 7 - Swelling Date Reviewed: 09/15/2019 Reviewed by: Isabella Billingsley) MANNY Kimble - Fully Assessed Reason for Visit: lab request [Other] Primary Visit Diagnosis:Hair loss [L65.9] Order(s):TSH BLD [SQTSH] Order #: [id number] FUTURE Prescriptions as of 10/20/2019 Sig: GABAPENTIN [...] 2019-10-20 Absolute nRBC <0.01 <0.01 Normal 10-20-2019 [facility] (05755) Erythrocyte distribution 13.2 11.5-15.0 % Normal 10-19 [facility] width (RBC) [Ratio] [place] (53845) Hematocrit (Bld) [Volume 38.3 36.0-46.0 % Normal 10-19 [facility] fraction] [place] (98764) Hemoglobin (Bld) 13.0 11.5-15.5 g/dL Normal 10-20-2019 [facility] [Mass/Vol] [place] (32046) MCH (RBC) [Entitic mass] 30.4 26.0-34.0 pG Normal 10-19 [facility] (44093) MCHC (RBC) [Mass/Vol] 33.9 30.5-36.0 g/dL Normal 10-20-19 20 [facility] (40770) MCV (RBC) [Entitic vol] 89.7 80.0-100.0 fL Normal 10-19 [facility] (59553) Platelet mean volume 9.4 9.0-12.7 fL Normal 0 [facility] (Bld) [Entitic vol] [place] (59088) Platelets (Bld) [#/Vol] 237 150-400 k/uL Normal 2019 [facility] (23220) RBC (Bld) [#/Vol] 4.27 3.90-5.20 m/uL Normal 10-20-2019 [facility] (52066) WBC (Bld) [#/Vol] 9.60 3.70-11.00 k/uL Normal 10-20-2019 [facility] (86355) albumin/creat ratio on 2019-10-20 Albumin Urine Random 1026.8 mg/L Normal 0 [facility] (37800) Comment: Performed By: #### UACR #### [facility] [place], [place] [phone] Albumin/Creat Ratio 668 <30 mg/g High 10-20-2019 [facility] (66578) Comment: Result Comment: Adult Male a nd [...] 3(1), 1-150. Performed By: #### UACR #### [facility] [place], [place] [phone] Creatinine,Urine,Ran 153.7 20-300 mg/dL Normal 0 [facility] (67206) Comment: Performed By: #### UACR #### [facility] [place], [place] [phone] obsolete on 2019-09 OBSOLETE Refill (INTMWS) Normal 09-23-2019 [facility] ANA IVORY ([id number]) 1940 [facility] Date Time Provider Department (75700) 09/23/19 ALICIA BLOUNT INTMWS During your visit [...] notify patient. Florence Ribeiro Pss Clarence Berry, MASOUD.CHILD WELFARE CASEWORKER 09/23/2019 10:04 AM Signed rx sent Allergies [...] Diarrhea METFORMIN 05/10/2011 6 - Diarrhea NEOSPORIN (ADYCGOMX-OKQJZSTGRO-RM*08/31/2008 2 - Rash Comments: blisters PROTONIX (PANTOPRAZOLE) 01/13/2010 6 - Diarrhea RELAFEN (NABUMETONE) 03/22/2006 8 - GI Upset 11 - Vomiting ACTOS (PIOGLITAZONE HCL) 12/03/2016 7 - Swelling Date Reviewed: 09/15/2019 Reviewed by: Isabella (Rn) MANNY Kimble - Fully Assessed Reason for Visit: Refill Request [94] Visit Diagnosis: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, with long-term current use of insulin ([facility]) [E08.40, Z79.4] Order(s):gabapentin (NEURONTIN) 300 mg capsuleTake [...] [E78.5] 11/06/2016 Functional dyspepsia [K30] 08/20/2017 More... Strikcland's esophagus without dysplasia [K22.70] 08/20/2017 More... Gastroesophageal [...] surgical pathology on 2019-09-15 SURGICAL Normal 09-15-2019 [place] [facility] [place] Specimen originated from [facility] (59427) Specimen #: [id number] Submitting Physician: RUBIN LORENZO MD FINAL DIAGNOSIS [...] in-situ hybridization tests have been determined by [facility] (RTPLNY) in a manner consistent with CLIA requirements. One or more of these tests have not been cleared or approved by the FDA. [facility] is regula amando under CLIA as [...] in one cassette. Gross examination performed at [facility], [address] [place] [address] J 09/16/2019 1:31:26 AM Date of Report: 09/17/2019 Date of Procedure: 09/15/2019 Date of Receipt: 09/15/2019 Submitted by: RUBIN LORENZO MD Location: W010 Diagnostic interpretation performed at [place] [address]. CLIA Number: [id number] pt ed on 2019-09-15 PT ED HNO ID: [id number] Normal 09-15-2019 [facility] Author: Isabella Billingsley) MANNY Kimble [place] (73325) Service: ? Author Type: Registered Nurse Type: [...] Department: AMBULATORY SURGERY PT ED HNO ID: [id number] Normal 09-15-2019 [facility] Author: Isabella Kimble RN [place] ([id number]) Service: ? Author Type: Registered Nurse Type: [...] nursing prog on NURSING PROG HNO ID: [id number] Normal 09-15-19 [facility] Author: Isabella Kimble RN [place] ([id number]) Service: ? Author Type: Registered Nurse Type: Nursing Progress Note Filed: 09/15/2019 9:40 AM Note Text: Patient did not experience a fall prior to discharge. Patient did not experience a burn prior to discharge. Isabella Kimble RN NURSING PROG HNO ID: [id number] Normal 09-15-19 [facility] Author: Isabella Kimble RN [place] ([id number]) Service: ? Author Type: Registered Nurse Type: Nursing Progress Note Filed: 09/15/2019 9:16 AM Note Text: Patient sitting up in bed tolerating snack and drink without problems. Isabella Kimble RN NURSING PROG HNO ID: [id number] Normal 09-15-19 [facility] Author: Isabella Kimble RN [place] ([id number]) Service: ? Author Type: Registered Nurse Type: Nursing Progress Note Filed: 09/15/2019 8:56 AM Note Text: Patient arrived to PACU, on left side, abdomen soft. Patient resting comfortably. Isabella Kimble RN NURSING PROG HNO ID: [id number] Normal 09-15-19 [facility] Author: Quiana Mcgovern RN [place] ([id number]) Service: Nursing Author Type: Registered Nurse Type: Nursing Progress Note Filed: 09/15/2019 8:46 AM Note Text: Patient did not experience a fall within the Intraoperative area. Patient did not experience a burn within the Intraoperative area. Quiana Mcgovern RN NURSING PROG HNO ID: [id number] Normal 09-15-19 [facility] Author: Isabella Kimble RN [place] ([id number]) Service: ? Author Type: Registered Nurse Type: [...] history physical on 2019-09-15 HISTORY HNO ID: [id number] Normal 09-15-2019 [place] PHYSICAL Author: Rubin Tejeda Service: Gastroenterology [place] Author Type: Physician ([id number]) Type: HANDP Filed: 09/15/2019 8:21 AM Note [...] C. difficile diarrhea 10/18/2011 - Cataract 04/17/2013 [facility] [place], Dr. Dada Rodríguez. Mild cataract in L eye- no need for cataract surgery at this time. Continue to follow u p the cataract. 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 At thi s time, we anticipate [...] who had a nodule identified on a de reening scan in the past due to [...] daily. 09/14/2019 at Unknown time Yes Insulin Fancy Gap, Disposable, (EASY TOUCH) 31 gauge x 3/16 [...] at Unknown time Yes Miscellaneous Medical Supply [facility] [place] [employer] [place] (E08.40, Z79.4) Diabetes mellitus due [...] 2019-09 OBSOLETE Refill (INTMWS) Normal 09-13-2019 [facility] DIANELYSMARIELLAVINCENT Wheeler ([id number]) 1940 [facility] Time Provider Department (69203) 09/13/19 CLARENCE BERRY (LOLI) INTMWS During your [...] Diarrhea METFORMIN 05/10/2011 6 - Diarrhea NEOSPORIN (QAMQCHCT-RNURYOSRRL-IZ*08/31/2008 2 - Rash Comments: blisters PROTONIX (PANTOPRAZOLE) 01/13/2010 6 - Diarrhea RELAFEN (NABUMETONE) 03/22/2006 8 - GI Upset 11 - Vomiting ACTOS (PIOGLITAZONE HCL) 12/03/2016 7 - Swelling Date Reviewed: 08/08/2019 Reviewed by: Cintia Macias LPN - Fully Assessed Reason for Visit: Refill Request [94] Visit Diagnoses:Anxiety [F41.9] 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, with long-term current use of insulin ([facility]) [E08.40, Z79.4] Order(s):glimepiride (AMARYL) 2 mg tabletTake [...] 09/14/19 progress on 2019-07 PROGRESS HNO ID: [id number] Normal 08-08-2019 [facility] Author: Alicia Blount [place] ([id number]) Service: ? Author Type: Physician Type: Progress [...] C. difficile diarrhea 10/18/2011 - Cataract 04/17/2013 [facility] [place], Dr. Dada Rodríguez. Mild cataract in L eye- no need for cataract surgery at this time. Continue to follow u p the cataract. 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 At thi s time, we anticipate [...] re [facility] on Sun[facility]/18/14 for [...] who had a nodule identified on a de reening scan in the past due to [...] 180 days. Morning and bedtime - Insulin Fancy Gap, Disposable, (EASY TOUCH) 31 gauge x 10/26 [...] E11.9 , Insulin: Yes - Blood-Glucose Meter (Halt MedicalTOUCH ULTRA2) monitoring kit 1 Eac h as [...] and/or coordi nating care for the patient. Txvi-hm-obrw time was at least 40 minutes. Alicia Blount MD cnov on 2019-08-08 CNOV Office Visit (INTMWS) Normal 08-08-20 19 [place] [facility] ANA IVORY ([id number]) 1940 [facility] Date Time Provider Department ([id number]) 08/08/19 1:00 PM ALICIA BLOUNT INTMWS During [...] C. difficile diarrhea 10/18/2011 - Cataract 04/17/2013 [facility] [place], Dr. Dada johnson Mild cataract in L eye- no need for cataract surgery at this time. Continue to follow up the cat aract. 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 At thi s time, we anticipate that the patient will be discharged home once c linically stable. Plan: - Discuss needs with patient. - Collaborate with Case management to facilitate DC process - Will continue to evaluate during the post op period. - Desat study 11/14/14: patient will need home oxygen (2 L with exertion only) - Discharge home today with [facility] care for assistance with chest tube to [facility]. Return to [facility] on Sunday11/18/[address] [...] 180 days. Morning and bedtime - Insulin Fancy Gap, Disposable, (EASY CARROL CH) 31 gauge x [...] counseling and/or coordinating care for the patient. Ahfm-hc-fggd time was at least 40 minutes. MD [...] Diarrhea METFORMIN 05/10/2011 6 - Diarrhea NEOSPORIN (ORIZLGAI-EEOVBWWAIF-PH*08/31/2008 2 - Rash Comments: blisters PROTONIX (PANTOPRAZOLE) 01/13/2010 6 - Diarrhea RELAFEN (NABUMETONE) 03/22/2006 8 - GI Upset 11 - Vomiting ACTOS (PIOGLITAZONE HCL) 12/03/2016 7 - Swelling Date Reviewed: 08/08/2019 Reviewed by: Cintia Macias LPN - Fully Assessed Reason for Visit: Follow Up [171] Primary Visit Diagnosis: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, with long-term current use of insulin ([facility]) [E08.40, Z79.4] Other Visit Diagnoses:Pain, dental [K08.89] History of tooth extraction, unspecified edentulism class [K08.409] Closed fracture of tooth with routine healing, subsequent encounter [S02.5XXD] Hair thinning [L65.9] Comment:right side of head (same side that lays on) Essential hypertension [I10] Bladder irritability [N32.89] Nocturia [R35.1] Comment:improved with treatment per Yazmin Don. Continue present management. Order(s):HEMOGLOBIN A1C (POC) [[id number]] Order #: [id number] pec. #:[id number] Cephalexin 250 mg tabTake 1 tablet by [...] ALBUMIN/CREAT RATIO RND UR [SQUACR] Order #: [id number] FUTU RE [] HYDROcodone-acetaminophen (NORCO) 5-325 mg [...] twice daily. (Dr Don) MISCELLANEOUS MEDICAL SUPPLY [facility] 2 Ea* 0 08/08/2019 Class: Print RX [...] OBSOLETE Refill (INTMWS) Normal 07-23-2019 Mannie mancini [facility] ANA IVORY ([id number]) 1940 [facility] Date Time Provider Department ([id number]) 07/23/19 ALICIA BLOUNT INTMWS During your visit [...] printed as above. Please process accordingly . [facility] checked and validated. All prescrip [...] Diarrhea METFORMIN 05/10/2011 6 - Diarrhea NEOSPORIN (QSEDXFNZ-JZBWZCJIQO-KI*08/31/2008 2 - Rash Comments: blisters PROTONIX (PANTOPRAZOLE) [...] OBSOLETE Refill (INTMWS) Normal 06-20-2019 Mannie mancini [facility] ANA IVORY ([id number]) 1940 [facility] Date Time Provider Department ([id number]) 06/20/19 ALICIA BLOUNT INTErisWS During your visit [...] Diarrhea METFORMIN 05/10/2011 6 - Diarrhea NEOSPORIN (MZWPNKQX-GTDVNHCETT-QD*08/31/2008 2 - Rash Comments: blisters PROTONIX (PANTOPRAZOLE) [...] hosp on 2019-06-18 HOSP Patient:Ana Ivory [birth year]18 [facility] MRN: [id number] ([id number]) Height:5' 2.5(1.588 m) Weight:No patient weight recorded [...] cap gabapentin (NEURONTIN) 300 mg capsule Insulin Fancy Gap, Disposable, (EASY TOUCH) 31 gauge x 3/16 [...] [G43.909] Recurrent bronchospasm [J98.09] 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 ([facility]) [I63.211] 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] Mouth dryness [R68.2] Hyperlipidemia [E78.5] Functional dyspepsia [K30] 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] Gastroesophageal reflux disease with esophagitis [K21.0] Vitamin D deficiency [E55.9] 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 Chelsy Vogel RN Progress Notes ([facility]): Nargis Miller Pss 09/04/2019 4:29 PM [...] history physical on 2019-06-18 HISTORY HNO ID: [id number] Normal 06-18-2019 [place] PHYSICAL Author: Medhat Barrera [facility] Service: ? [place] Author Type: Nurse Practitioner ([id number]) Type: HANDP Filed: 06/18/2019 10:28 AM Note [...] reported above : Overactive bladder /interstitial cystitis. NAVAL INSPECTOR: Negative for abnormal vaginal bleeding, abnormal vagina [...] C. difficile diarrhea 10/18/2011 - Cataract 04/17/2013 [facility], Dr. Dada Rodríguez. Mild cataract in L eye- no need for cataract surgery at this time. Continue to follow u p the cataract. 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 At thi s time, we anticipate that the patient will be discharged home once cli nically stable. Plan: - Discuss needs with patient. - Collaborate [facility] Case management to facilitate DC process - Will continue to evalu ate during the post op period. - Desat study 11/14/14: patient will need home oxygen (2 L with exertion only) - Discharge home today with home ca re [facility]. Return to OPD on Sun11/18/14 for [...] right eye - COLONOSCOP W/ OR W/O [facility] SPEC 10/31/2007 Colonoscopy - EGD W/O [facility] SPECIMEN W/BX 11/01/09 - EGD W/O [facility] SPECIMEN W/BX 11/23/11 - EGD W/O OR [...] and bedtime 180 capsule 1 - Insulin Fancy Gap, Disposable, (EASY TOUCH) 31 gauge x 16 [...] with more than 50% of the total join-rr-rgke t dinorah of the visit in counseling / coordination of care. Medhat Barrera RN APRN.NEMESIO eason on 2019-06-18 CNOV Office Visit ([facility]) Normal 06-18-20 19 [place] [facility] ANA IVORY ([id number]) 1940 [facility] Time Provider Department ([id number]) 06/18/19 9:20 AM MEDHAT BARRERA During your visit today, we recorded the following informati on about you: Pulse Blood pressure Weight 76/minute 124/74 58.5 kg Medhat Barrera RN HEALTH CARE MARKETING MANAGER.GRINDING WHEEL FACER 06/18/2019 10:28 AM Signed Ana Wheeler Dianelys [...] esophagus, biopsy (B) - Cardiac mucosa with international representative alexander inflammation, negative for intestinal metaplasia. The [...] reported above : Overactive bladder /interstitial cystitis. NAVAL INSPECTOR: Negative for abnormal vaginal bleeding, abnormal vagina [...] C. difficile diarrhea 10/18/2011 - Cataract 04/17/2013 [facility], Dr. Dada johnson Mild cataract in L eye- no need for cataract surgery at this time. Continue to follow up the cat aract. 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 At thi s time, we anticipate that the patient will be discharged home once c linically stable. Plan: - Discuss needs with patient. - Collaborate with Case management to facilitate DC process - Will continue to evaluate during the post op period. - Desat study 11/14/14: patient will need home oxygen (2 L with exertion only) - Discharge home today with [facility] care for assistance with chest [...] and bedtime 180 capsule 1 - Insulin Fancy Gap, Disposable, (EASY CARROL ) 31 gauge x [...] with more than 50% of the total lujf-uq-jedb time of the visit in counseling / coordination of care. Medhat Barrera RN HEALTH CARE MARKETING MANAGER.NEMESIO Barrera RN HEALTH CARE MARKETING MANAGER.NEMESIO 06/18/2019 9:34 AM Signed See if Nexium [...] in that regard. Referring Provider: ALICIA BLOUNT [[id number]] Allergies As of Date: 06/18/2019 Noted Allergy [...] Diarrhea METFORMIN 05/10/2011 6 - Diarrhea NEOSPORIN ([id number]*08/31/2008 2 - Rash Comments: blisters PROTONIX (PANTOPRAZOLE) [...] DAILY (6 AM).Disp: 90 capsuleRfl: 3 EGD [[id number]] Order #: [id number] FUTURE COLONOSCOPY SCRN NOT HIGH RISK [[id number]] Order #: [id number] FUTURE Prescriptions as of 06/18/2019 Sig: [...] Normal 05-24-2019 [facility] ANA IVORY ([id number]) 1940 [facility] Time Provider Department ([id number]) 05/24/19 ALICIA BLOUNT INTErisWS During your visit [...] Diarrhea METFORMIN 05/10/2011 6 - Diarrhea NEOSPORIN ([id number]*08/31/2008 2 - Rash Comments: blisters PROTONIX (PANTOPRAZOLE) [...] 2019-04 OBSOLETE Refill (INTMWS) Normal 05-08-2019 [facility] ANA IVORY ([id number]) 1940 [facility] Date Time Provider Department ([id number]) 05/08/19 ALICIA BLOUNT INTMWS During your visit today, we recorded the following informati on about you: Libertad Burdick [facility] 05/08/2019 4:11 PM Signed Patient has been [...] Diarrhea METFORMIN 05/10/2011 6 - Diarrhea NEOSPORIN ([id number]*08/31/2008 2 - Rash Comments: blisters PROTONIX (PANTOPRAZOLE) 01/13/2010 6 - Diarrhea RELAFEN (NABUMETONE) 03/22/2006 8 - GI Upset 11 - Vomiting ACTOS (PIOGLITAZONE HCL) 12/03/2016 7 - Swelling Date Reviewed: 04/25/2019 Reviewed by: Yulisa Bills LPN - Fully Assessed Reason for Visit: Refill Request [94] Visit Diagnoses: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, with long-term current use of insulin ([facility]) [E08.40, Z79.4] Chronic cough [R05] Comment:2014 PFT [...] [id number] 4. Body weight 59.42 kg 04-26-2020 [facility] ([id number]) BP Diastolic 60 mm[Hg] 04-26-2020 [facility] ([id number]) BP Systolic 124 mm[Hg] 04-26-2020 [facility] ([id number]) Pulse (Heart Rate) 64 /min 04-26-2020 [place] [facility] ([id number]) Respiratory Rate 16 /min 04-26-2020 [place] [facility] ([id number]) Encounters Date Type Reason Provider Location 03-26-2020 - Documentation External [place] [facility] 03-26-2020 procedure Provider 03-26-2020 External External External-Non[facility] Correspondence Provider 04-26-2020 - Patient encounter Acute posttraumatic Ct [facility] Cat Scan 04-26-2020 procedure headache (I-Stat) Comment: Radiology CT 04-26-2020 - Patient encounter Acute posttraumatic Clarence (Mandrel Cleaner) Int ernal 04-26-2020 procedure headache [facility] Comment: Acute post-traumatic headach e, not intractable (Primary Dx); Facial pain; Blurry vision, left eye 04-13-2020 - Refill Secondary diabetes Alicia Blount [facility] 04-13-2020 mellitus Comment: Refill Request 04-27-2020 - 04-27-2020 Telephone encounter Clarence (Mandrel Cleaner ) [facility] [place] Comment: Results (CT) 04-26-2020 - 04-26-2020 Telephone encounter Fall Alicia Alford [facility] [place] Comment: Fall Procedures Procedure Name Date Provider Location Ct head/brain w/o 04-26-2020 Clarence (Mandrel Cleaner) [facility] linic contrast material ([id number]) Colonoscopy 09-15-2019 - [facility] 09-15-2019 ([id number]) Plan of Treatment Plan Description Date Location COLONOSCOPY COLONOSCOPY 09-15-2029 - [facility] 09-15-2029 ([id number]) COLORECTAL CANCER COLORECTAL CANCER 09-15-2029 [facility] inic SCREENING,SEE MODIFIER SCREENING,SEE MODIFIER ([id number]) ANNUAL PCP TEAM CHRONIC ANNUAL PCP TEAM CHRONIC 04-26-2021 - [facility] DISEASE VISIT DISEASE VISIT 04-26-2021 ([id number]) BP CONTROLLED (<130/80) BP CONTROLLED (<130/80) 04-26-2021 - [facility] 04-26-2021 ([id number]) DILATED RETINAL EXAM DILATED RETINAL EXAM 04-01-2021 - [facility] 04-01-2021 ([id number]) ANNUAL PCP TEAM CHRONIC ANNUAL PCP TEAM CHRONIC 01-26-2021 - [facility] DISEASE VISIT DISEASE VISIT 01-26-2021 ([id number]) URINE ALBUMIN:CREATININE URINE ALBUMIN:CREATININE 01-21-2021 - [facility] RATIO RATIO 01-21-2021 ([id number]) DIABETIC FOOT EXAM DIABETIC FOOT EXAM 10-23-2020 - [facility] 10-23-2020 ([id number]) SHINGRIX VACCINE (2 of SHINGRIX VACCINE (2 of 10-23-2020 - [facility] 3) 3) 10-23-2020 ([id number]) Comment: Postponed from 03/04/2008 (D eclined at this time) LDL CHOLESTEROL LDL CHOLESTEROL 10-19-2020 - [facility] 10-19-2020 ([id number]) DTAP,TDAP,TD (2 - Td) DTAP,TDAP,TD (2 - Td) 08-08-2020 - [facility] 08-08-2020 ([id number]) Comment: Postponed from 03/22/2016 (D eclined at this time) HBA1C HBA1C 07-23-2020 - [facility] 07-23-2020 ([id number]) BP CONTROLLED BP CONTROLLED 04-25-2020 - [facility] (<130/80) (<130/80) 04-25-2020 ([id number]) INFLUENZA (#1) INFLUENZA (#1) 2020 [facility] ([id number]) DILATED RETINAL EXAM DILATED RETINAL EXAM 03-05-2020 [facility] ([id number]) ADVANCE DIRECTIVE ADVANCE DIRECTIVE 09-25-2013 - [facility] inic DISCUSSION DISCUSSION 09-25-2013 ([id number]) HEPATITIS C SCREENING HEPATITIS C SCREENING 1960 - [facility] 1958 ([id number]) no information [facility] (64110) Immunizations Vaccine Notes Status Date Location Influenza [...] - High Dose - Age seasonal, 04-25-2019 (78353) 65+ preservative-free Influenza Seasonal influenza, high dose (completed) 04-20-2018 - [facility] - High Dose - Age seasonal, 04-20-2018 ([id number]) 65+ preservative-free Influenza Seasonal influenza, high dose (completed) 05-17-2017 - [facility] - High Dose - Age seasonal, 05-17-2017 (88375) 65+ preservative-free Influenza Seasonal influenza, high dose (completed) 05-11-2016 - [facility] - High Dose - Age seasonal, 05-11-2016 (03534) 65+ preservative-free Influenza Seasonal influenza, high dose (completed) 05-12-2015 - [facility] - High Dose - Age seasonal, 05-12-2015 (40345) 65+ preservative-free Influenza Seasonal influenza, seasonal, (completed) 04-15-2020 - [facility] Inj Age 3+ injectable 04-15-2020 ([id number]) Influenza Seasonal influenza, seasonal, (completed) 05-13-2014 - [facility] Inj Age 3+ injectable 05-13-2014 (85122) Pneumococcal-13 Vac pneumococcal conjugate (completed) 09-07-2014 - [facility] Conjugate vaccine, 13 valent 09-07-2014 ([id number]) Pneumovax pneumococcal (completed) 09-05-2007 - [facility] polysaccharide vaccine, 09-05-2007 (441 95) 23 valent Tdap (Age 7+) tetanus toxoid, reduced (completed) 03-22-2006 - [facility] diphtheria toxoid, and 03-22-2006 (4419 5) acellular pertussis vaccine, adsorbed Zostavax zoster vaccine, live (completed) 01-08-2008 - [facility] 01-08-2008 ([id number]) Payers Payer Name Policy Number Location [employer]MA[employer] [id number] [facility] (44 195) MEDICARE [id number] [facility] (44 195) The following information is from the original human readable contentNo Payer Records Found Social History Type Social History Date Location Description Tobacco smoking status Never smoker 01-08-2020 - [facility] NHIS 04-26-2020 (21735) Tobacco use and Never used 01-08-2020 [facility] exposure 04-26-2020 (75055) Alcohol intake Current drinker of 01-08-2020 [facility] alcohol (finding) 04-26-2020 (22081) Alcohol Comment 2-3 drinks/years 10-07-2014 - [place] [facility] 10-07-2014 (91952) Sex Assigned At Not on file [facility] (11581) Exposure to SARS-CoV-2 Not sure [facility] (event) (92453) The following information is from the original [...] Overview: Ana Ivory is and lives in [place], [place]. At this time, we anticipate that [...] fo r assistance with chest tube to [facility]. Return to OPD on Sunday11/18/[address] removal . Esophageal reflux 10/08/2014 10/08/2014 Cataract 04/17/2013 09/15/2016 Overview: [facility], Dr. Dada johnson Mild cataract in L [...] Overview: Ana Ivory is and lives in [place], [place]. At this time, we anticipate that [...] fo r assistance with chest tube to [facility]. Return to OPD on Sunday11/18/[address] removal . Esophageal reflux 10/08/2014 10/08/2014 Cataract 04/17/2013 09/15/2016 Overview: [facility], Dr. Dada johnson Mild cataract [...] Overview: Ana Ivory is and lives in [place], [place]. At this time, we anticipate that [...] reflux 10/08/2014 10/08/2014 Cataract 04/17/2013 09/15/2016 Overview: [facility], Dr. Dada johnson Mild cataract in L [...] Overview: Ana Ivory is and lives in [place], [place]. At this time, we anticipate that [...] fo r assistance with chest tube to [facility]. Return to OPD on Sunday11/18/[address] removal . Esophageal reflux 10/08/2014 10/08/2014 Cataract 04/17/2013 09/15/2016 Overview: [facility], Dr. 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 (Dr Don) Miscellaneous Medical Supply [facility] [employer] (E08.40, Z79.4) Diabetes mellitus due [...] C. difficile diarrhea 10/18/2011 ? Cataract 04/17/2013 [facility], Dr. Dada Rodríguez. Mild cataract in L eye- no need for cataract surgery at this time. Continue to follow up the cataract. ? 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 Displacement of lumbar intervertebral disc without myelopathy ? DISPOSITION AND FOLLOW-UP 11/11/2014 Ana Ivory is and lives in [place], [place]. At this time, we anticipate that the patient will be discharged home once clinically stable. Plan: - Discuss needs with patient. - Collaborate with Case management to facilitate DC process - Will continue to evaluate during the post op period. - Desat study 11/14/14: patient will need home oxygen (2 L with exertion only) - [facility] [...] should be addressed right away. Clarence Berry APRN.CHILD WELFARE CASEWORKER documented in this encounterCarolynn Macias ([employer]), [facility] - 04/26/2020 4:07 PM EDT Radiology [...] BE BASED ON THE PRIMARY CLINICAL RECORDS. [facility] provides no warranty or guarantee [...] or prosecute any alcohol or drug abuse patient.[facility] Center[facility] the event this information is protected by the Federal Confidentiality of Alcohol and Drug Abuse Patient Records regulations: The Federal rules restrict any use of the information to criminally investigate or prosecute any alcohol or drug abuse patient.[facility] Center[facility] the event this information is protected by the Federal Confidentiality of Alcohol and Drug Abuse Patient Records regulations: The Federal rules restrict any use of the information to criminally investigate or prosecute any alcohol or drug abuse patient.[facility] Center[facility] the event this information is protected by the Federal Confidentiality of Alcohol and Drug Abuse Patient Records regulations: The Federal rules restrict any use of the information to criminally investigate or prosecute any alcohol or drug abuse patient.[facility] CenterIn the event this information is protected by the Federal Confidentiality of Alcohol and Drug Abuse Patient Records regulations: The Federal rules restrict any use of the information to criminally investigate or prosecute any alcohol or drug abuse patient.[facility] CenterIn the event this information is protected by the Federal Confidentiality of Alcohol and Drug Abuse Patient Records regulations: The Federal rules restrict any use of the information to criminally investigate or prosecute any alcohol or drug abuse patient.[facility] UNRECOGNIZED CONTENT PROVIDED BELOW FOR [...] in the L eye. Appt scheduled with [employer]INCIP[employer] for today. Harlan Zarate LPN documented in [...] DATE CREATED AUTHOR AUTHOR'S ORGANIZATIO N 04/27/2020 [facility]
--- OUTSIDE RECORDS SUMMARY | 2020-05-25 15:38 | XMS RPT_ITS | CCD ---
:1940 External Reference #:[id number] Author Organization [facility] Care Team Providers Name Role Phone Rhonda Blount Primary Care Provider Allergies Reported Allergen Reaction(s) Severity Date of Onset Location Adhesive Tape Hives 08-31-2008 - [facility] ([id number]) Aspirin Contraind[facility]Medi [facility] ([id number][facility] Ciprofloxacin Other: See Comments 12-01-2013 - [facility] (95132) Codeine GI Upset 08-24-2005 - [facility] [facility] (17397) Ibandronate GI Upset 12-04-2008 - [facility] (45735) Ibuprofen GI Upset 03-22-2006 - [facility] (32671) Iodine Vomiting 08-25-2008 - [facility] (52535) lansoprazole Diarrhea 11-01-2011 - [facility] (67590) metFORMIN Diarrhea 05-10-2011 - [facility] (40174) nabumetone GI Upset, Vomiting 03-22-2006 - [facility] (42546) Bczrrpoj-Jwuoyndhcf-Gcw Rash 08-31-2008 - [facility] ymyxin (32145) pantoprazole Diarrhea 01-13-2010 - [facility] (65740) pioglitazone Swelling Low 12-03-2016 - [facility] (96319) Sucralfate Other: See Comments 04-24-2012 - [facility] (54203) Medications Medication Name Sig Date Prescriber Location Aspirin aspirin, enteric coated [facility] Provider [facility] ([id number]) (ASPIRIN, ENTERIC COATED) 81 mg EC tablet Take 81 mg by mouth once daily. 0 Active Comment: Take 81 mg by mouth once danuta ly. atorvastatin atorvastatin (LIPITOR) 01-08-2020 Alicia D [facility] 20 mg tablet Take 1 (42883) tablet by mouth once daily. 90 tablet 3 01/08/2020 Active Comment: Take 1 tablet by mouth once daily. Biotin Biotin 2,500 mcg cap Nurse 01-27-2020 Alicia Bateman [facility] ([id number]) reports patient taking 1500 mcg dose once daily (cannot find 1500mcg dose on menu) 0 01/27/2020 Active Comment: Nurse reports patient taking 1500 mcg dose once daily (cannot find 1500mcg dose on menu) Blood-Glucose Meter Blood-Glucose Meter 05-23-2017 Alicia Rhonda [facility] (ONETOUCH ULTRA2) (ONETOUCH ULTRA2) (4419 5) monitoring kit monitoring kit 1 Each as needed. One Touch Meter Kit Diagnosis: Type 2 DM - Controlled E11.9 1 Each 0 05/23/2017 Active Blood-Glucose Meter (ONETOUCH 05-23-2017 Alicia Rhonda [facility] (61962) ULTRA2) monitoring kit 1 Each as needed. One Touch Meter Kit Diagnosis: Type 2 DM - Controlled E11.9 1 Each 0 05/23/2017 Active Blood-Glucose Meter (ONETOUCH 05-23-2017 Alicia Rhonda [facility] (11092) ULTRA2) monitoring kit 1 Each as needed. One Touch Meter Kit Diagnosis: Type 2 DM - Controlled E11.9 1 Each 0 05/23/2017 Active Blood-Glucose Meter (ONETOUCH 05-23-2017 Alicia Rhonda [facility] (76649) ULTRA2) monitoring kit 1 Each as needed. One Touch Meter Kit Diagnosis: Type 2 DM - Controlled E11.9 1 Each 0 05/23/2017 Active Blood-Glucose Meter (ONETOUCH 05-23-2017 [facility] (69623[facility] ULTRA2) monitoring kit 1 Each as needed. One Touch Meter Kit Diagnosis: Type 2 DM - Controlled E11.9 1 Each 0 05/23/2017 Active Blood-Glucose Meter (ONETOUCH 05-23-2017 [facility] (70175) ULTRA2) monitoring kit 1 Each as needed. One Touch Meter Kit Diagnosis: Type 2 DM - Controlled E11.9 1 Each 0 05/23/2017 Active Comment: 1 Each as needed. One Touch Meter Kit Diagnosis: Type 2 DM - Controlled E11.9 Capsaicin capsaicin (ZOSTRIX) 01-27-2020 [facility] Berry [facility] 0.025 % cream Apply 3 (44520 ) application to affected area three times daily. January 27, 2020 states not using 100 g 0 01/27/2020 Active Comment: Apply 3 application to affec amando area three times daily. January 27, 2020 states not using Cephalexin Cephalexin 250 mg tab 08-08-2019 Alicia Rhonda Blount [facility] Take 1 tablet by mouth (4419 5) daily at bedtime. (Dr Don) 0 08/08/2019 Active Comment: Take 1 tablet by mouth daily at bedtime. (Dr Don) Cholecalciferol Cholecalciferol, Vitamin 04-25-2019 [facility] ([facility] D3, 1,000 unit cap Take 2 Berry (4 4195) capsules by mouth once daily. 0 04/25/2019 Active Comment: Take 2 capsules by mouth onc e daily. COMPOUNDED COMPOUNDED 01-03-2018 Alicia Rhonda Blount [facility] in PRESCRIPTION PRESCRIPTION Custom (67915) orthotics (E08.40, Z79.4) 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, with long-term current use of insulin 2 Each 0 01/03/2018 Active COMPOUNDED PRESCRIPTION Custom 01-03-2018 [facility] (93127[facility] orthotics (E08.40, Z79.4) 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, with long-term current use of insulin 2 Each 0 01/03/2018 Active COMPOUNDED PRESCRIPTION Custom 01-03-2018 Alicia D Prash[facility]ampas [facility] (79907) orthotics (E08.40, Z79.4) 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, with long-term current use of insulin 2 Each 0 01/03/2018 Active COMPOUNDED PRESCRIPTION Custom 01-03-2018 Alicia D Talamp[place] C [facility] (56959) orthotics (E08.40, Z79.4) 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, with long-term current use of insulin 2 Each 0 01/03/2018 Active COMPOUNDED PRESCRIPTION Custom 01-03-2018 [facility] (92346) orthotics (E08.40, Z79.4) 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, with long-term current use of insulin 2 Each 0 01/03/2018 Active COMPOUNDED PRESCRIPTION Custom 01-03-2018 Alicia Rhonda [facility] (33243) orthotics (E08.40, Z79.4) 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, with long-term current use of insulin 2 Each 0 01/03/2018 Active Comment: Custom orthotics (E08.40, Z7 9.4) Diabetes 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 condition with diabetic neur opathy, with long-term current use of insulin Cranberry-Vitamin Cranberry-Vitamin 01-27-2020 [facility] David balbuena C-Vitamin E (CRANBERRY C-Vitamin E ([facility] (02507) PLUS VITAMIN C) 140-100 PLUS VITAMIN C) 140-100 mg cap mg cap Patient takes Cranberry with Vitamin C capsule that contains 15,000 mg Cranberry and 100mg Vitamin C 0 01/27/2020 Active Cranberry-Vitamin C-Vitamin E 01-27-2020 [facility] (38276) (CRANBERRY PLUS VITAMIN C) 140-100 mg cap Patient takes Cranberry with Vitamin C capsule that contains 15,000 mg Cranberry and 100mg Vitamin C 0 01/27/2020 Active Cranberry-Vitamin C-Vitamin E 01-27-2020 [facility] (78316) (CRANBERRY PLUS VITAMIN C) 140-100 mg cap Patient takes Cranberry with Vitamin C capsule that contains 15,000 mg Cranberry and 100mg Vitamin C 0 01/27/2020 Active Cranberry-Vitamin C-Vitamin E 01-27-2020 [facility] (80054) (CRANBERRY PLUS VITAMIN C) 140-100 mg cap Patient takes Cranberry with Vitamin C capsule that contains 15,000 mg Cranberry and 100mg Vitamin C 0 01/27/2020 Active Cranberry-Vitamin C-Vitamin E 01-27-2020 [facility] (30283) (CRANBERRY PLUS VITAMIN C) 140-100 mg cap Patient takes Cranberry with Vitamin C capsule that contains 15,000 mg Cranberry and 100mg Vitamin C 0 01/27/2020 Active Cranberry-Vitamin C-Vitamin E 01-27-2020 Alicia Blount [facility] (31513) (CRANBERRY PLUS VITAMIN C) 140-100 mg cap Patient takes Cranberry with Vitamin C capsule that contains 15,000 mg Cranberry and 100mg Vitamin C 0 01/27/2020 Active Comment: Patient takes Cranberry with Vitamin C capsule that contains 15,000 mg Cranberry and 100mg Vitamin C Esomeprazole esomeprazole (NEXIUM) 40 mg 06-18-2019 [facility] capsule Indications: (04291) 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 90 capsule 3 06/18/2019 Active Comment: Take 1 capsule by mouth PALOA Y (6 AM). Estrogens, Conjugated PREMARIN vaginal 06-25-2019 [facility] Provider [facility] (SKILLED NURSING) cream APPLY 0.5 GRAMS (79435 ) VAGINALLY BEFORE BED EVERY NIGHT FOR 14 DAYS THEN USE TWICE A WEEK FOR 3 MONTHS 0 06/25/2019 Active Comment: APPLY 0.5 GRAMS VAGINALLY BE FORE BED EVERY NIGHT FOR 14 DAYS THEN USE TWICE A WEEK FOR 3 MONTHS gabapentin gabapentin 09-23-2019 - Alicia Ellis [facility]ic (NEURONTIN) 300 mg 10-11-2020 (99795) capsule Indications: 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, with long-term current use of insulin ([facility]) Take 1 capsule by mouth twice daily for 180 days. Morning and bedtime 180 capsule 1 04/14/2020 10/11/2020 Active Comment: Take 1 capsule by mouth twic e daily for 180 days. Morning and bedtime glimepiride glimepiride (AMARYL) 2 09-14-2019 Clarence (Audio Production Instructor) [facility] mg tablet Indications: (4419 5) 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, with long-term current use of insulin ([facility]) Take 1 tablet by mouth twice daily with meals. 180 tablet 1 09/14/2019 Active Comment: Take 1 tablet by mouth twice daily with meals. Insulin Glargine insulin glargine 02-18-[address] Alicia Blount [facility] (LANTUS SOLOSTAR U-100 (4419 5) INSULIN) 100 unit/mL (3 mL) Inject 24 Units subcutaneously daily at bedtime. 15 mL 3 02/18/2020 Active Comment: Inject 24 Units subcutaneous ly daily at bedtime. Insulin, Aspart, insulin aspart U-100 10-24-2019 - Alicia Ellis [facility] Human (NOVOLOG FLEXPEN 10-23-2020 (21825) U-100 INSULIN) 100 unit/mL (3 mL) Inject 8 Units subcutaneously twice daily with meals. Adjust as directed 5 Pen 11 10/24/2019 10/23/2020 Active Comment: Inject 8 Units subcutaneousl y twice daily with meals. Adjust as directed Ketoconazole ketoconazole (NIZORAL) 2 01-27-2020 Alicia Rhonda [facility] % cream Apply 1 (67128) application to affected area twice daily. Continue for 1 week after rash resolves. 30 g 0 01/27/2020 Active Comment: Apply 1 application to affec amando area twice daily. Continue for 1 week after rash resolves. LORazepam LORazepam (ATIVAN) 1 01-06-2020 - Alicia Ellis [facility] mg tablet Indications: 07-13-2020 (4419 5) Anxiety TAKE 1/2 TO 1 TABLET BY MOUTH EVERY DAY NEEDED FOR FOR ANXIETY 30 tablet 2 04/14/2020 07/13/2020 Active Comment: TAKE 1/2 TO 1 TABLET BY MOUT H EVERY DAY NEEDED FOR FOR ANXIETY Metoprolol metoprolol succinate ER 06-20-2019 Alicia Ellis [facility] (TOPROL XL) 200 mg 24 hr (44 195) tablet Indications: Essential hypertension Take 1 tablet by mouth once daily. 90 tablet 3 06/20/2019 Active Comment: Take 1 tablet by mouth once daily. mirabegron mirabegron (MYRBETRIQ) 50 10-24-2019 Alicia Ellis [facility] mg Tb24 Take 1 tablet by (44 195) mouth twice daily. 0 10/24/2019 Active Comment: Take 1 tablet by mouth twice daily. Miscellaneous Medical Miscellaneous Medical 08-08-2019 Alicia Ellis [facility] (82631) Indications: 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, with long-term current use of insulin (HCC) Custom Orthotics (E08.40, Z79.4) 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, with long-term current use of insulin 2 Each 0 08/08/2019 Active [facility] Medical [facility] 08-08-2019 [facility] Rhonda [facility] (60917) Indications: 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, with long-term current use of insulin (HCC) Custom Orthotics (E08.40, Z79.4) 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, with long-term current use of insulin 2 Each 0 08/08/2019 Active [facility] 08-08-2019 [facility] (58396) Indications: 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, with long-term current use of insulin (HCC) Custom Orthotics (E08.40, Z79.4) 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, with long-term current use of insulin 2 Each 0 08/08/2019 Active [facility] 08-08-2019 [facility] (93454) Indications: 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, with long-term current use of insulin (HCC) Custom Orthotics (E08.40, Z79.4) 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, with long-term current use of insulin 2 Each 0 08/08/2019 Active [facility] 08-08-2019 [facility] (82745) Indications: 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, with long-term current use of insulin (HCC) Custom Orthotics (E08.40, Z79.4) 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, with long-term current use of insulin 2 Each 0 08/08/2019 Active [facility] 08-08-2019 [facility] (66547) Indications: Diabetes 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 condition [...] of insulin multivitamins(DAILY multivitamins(DAILY 12-08-2009 Randi Kessler [facility] MULTIVITAMIN TAB) MULTIVITAMIN TAB) Take (Strap Buckler Machine) [facility] (89485) one(1) tablet daily. 0 12/08/2009 Active multivitamins(DAILY MULTIVITAMIN 12-08-2009 Randi Jefferson (Strap Buckler Machine) [facility] TAB) Take one(1) tablet daily. 0 [place] (97024) 12/08/2009 Active multivitamins(DAILY MULTIVITAMIN 12-08-2009 Randi Jefferson (Strap Buckler Machine) [facility] TAB) Take one(1) tablet daily. 0 [place] (14102) 12/08/2009 Active multivitamins(DAILY MULTIVITAMIN 12-08-2009 Randi Jefferson (Strap Buckler Machine) [facility] TAB) Take one(1) tablet daily. 0 [place] (20808) 12/08/2009 Active multivitamins(DAILY MULTIVITAMIN 12-08-2009 Randi Jefferson (Strap Buckler Machine) [facility] TAB) Take one(1) tablet daily. 0 [place] (62664) 12/08/2009 Active multivitamins(DAILY MULTIVITAMIN 12-08-2009 Randi Jefferson (Strap Buckler Machine) [facility] TAB) Take one(1) tablet daily. 0 [place] (02963) 12/08/2009 Active Comment: Take one(1) tablet daily. oxybutynin oxybutynin ER (DITROPAN 08-08-2019 Alicia Blount [facility] XL) 10 mg 24 hr tablet (4419 5) Take 1 tablet by mouth twice daily. (Dr Don) 0 08/08/2019 Active Comment: Take 1 tablet by mouth twice daily. (Dr Don) Sertraline sertraline (ZOLOFT) 50 09-14-2019 Clarence (Audio Production Instructor) [facility] mg tablet Take 1 tablet (441 95) by mouth once daily. 90 tablet 3 09/14/2019 Active Comment: Take 1 tablet by mouth once daily. SUMAtriptan SUMAtriptan (IMITREX) 50 11-01-2018 [facility] mg tablet Take 1 tablet (441 95) by mouth. at onset of headache. May take another tablet as needed one hour later. 10 tablet 5 11/01/2018 Active Comment: Take 1 tablet by mouth. at o nset of headache. May take another tablet as needed one hour later. vit C/E/Zn/coppr/lutein/zeaxan vit C/E/Zn/coppr/lutein/zeaxan [facility] (PRESERVISION AREDS-2 ORAL) ([facility] Provider Clinic Take by mouth twice daily. 0 (29621) Active vit C/E/Zn/coppr/lutein/zeaxan ([facility] Provider [facility] (08300) AREDS-2 ORAL) Take by mouth twice daily. 0 Active vit C/E/Zn/coppr/lutein/zeaxan ([facility] (25088) AREDS-2 ORAL) Take by mouth twice daily. 0 Active vit C/E/Zn/coppr/lutein/zeaxan ([facility] (64689) AREDS-2 ORAL) Take by mouth twice daily. 0 Active vit C/E/Zn/coppr/lutein/zeaxan ([facility] Provider [facility] (86334) AREDS-2 ORAL) Take by mouth twice daily. 0 Active vit C/E/Zn/coppr/lutein/zeaxan ([facility] (11260) AREDS-2 ORAL) Take by mouth twice daily. 0 Active Comment: Take by mouth twice daily. 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 (44984) Diabetes mellitus without Secondary diabetes Active 0 - [facility] complication mellitus (20393) Disorders of lipid Hyperlipidemia Active 11-06-2016 - [facility] metabolism (66852) Esophageal disorders Gastro-esophageal Active 11-23-2011 - [facility] reflux disease with (69849) esophagitis Essential hypertension Hypertensive disorder Active 3 - [facility] (30376) Genitourinary symptoms Urge incontinence of Active 12-16-2013 - [facility] and ill-defined urine (17081) conditions Headache; including Migraine Active 11-11-2014 - [facility] migraine (66188) Nutritional deficiencies Vitamin D deficiency Active 03-10-20 - [facility] (58576) Osteoarthritis Degenerative joint Active 03-06-2006 - [facility] disease involving (14373) multiple joints Osteoporosis Osteoporosis Active 02-19-2006 - [facility] (04719) Other gastrointestinal Irritable bowel Active 02-01-2012 - matias [facility] disorders syndrome (66459) Other hereditary and Restless legs Active 06-19-2006 - [facility] degenerative nervous (51475) system conditions Other lower respiratory Chronic cough Active 01-27-2020 - [facility] disease (33948) Other nervous system 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 - [facility] disorders (21613) Other upper respiratory Allergic rhinitis Active 03-06-2006 - [facility] disease (76236) Spondylosis; Displacement of lumbar Active [facility] intervertebral disc intervertebral disc ( 24790) disorders; other back without myelopathy problems Past or Other Problems Category Problem Name Status Date Location Diseases of mouth; Xerostomia Completed 11-06-2016 - [facility] excluding dental (81165) Disorders of teeth Temporomandibular joint Completed 11-22-2018 - [facility] and jaw disorder (82683) Other disorders of Nonulcer dyspepsia Completed 08-20-2017 - [facility] stomach and duodenum (88954) Other upper Bronchospasm Completed 01-21-2015 - [facility] respiratory disease (89977) Residual codes; Insomnia Completed 04-30-2007 - [facility] inic unclassified (07458) Results Result Name Value Range Unit Interpretation Flag Date Location [facility] on 2020-04-27 [facility] Telephone (INTMWS) Normal 04-27-2020 [facility] ANA IVORY ([id number]) 1940 [facility] Date Time Provider Department (65882) 04/27/20 CLARENCE BERRY (FOOD AND BEVERAGE ASSOCIATE) INTMWS During your visit today, we recorded the following informati on about you: Clarence Berry APRN.FOOD AND BEVERAGE ASSOCIATE 04/27/2020 8:03 AM Signed Please let her [...] Diarrhea METFORMIN 05/10/2011 6 - Diarrhea NEOSPORIN ([id number]*08/31/2008 2 - Rash Comments: blisters PROTONIX (PANTOPRAZOLE) [...] 04/27/20 progress on 2020-04 PROGRESS HNO ID: [id number] Normal 04-26-2020 [facility] Author: Jessica Pete (Tech) [place] ([id number]) Service: ? Author Type: Auditing Specialist Type: Progress Notes Filed: 04/26/2020 4:08 PM [...] 26, 2020 4:07 PM PROGRESS HNO ID: [id number] Normal 04-26-2020 [facility] Author: Clarence Berry (Cns) [place] ([id number]) Service: ? Author Type: Nurse Specialist Type: [...] left side of face from jaw to alevism, no step off or deformity appreciated on [...] EVERY DAY NEEDED FOR FOR ANXIETY Insulin [place], Disposable, (EASY TOUCH) 31 gauge x 3/16 [...] (Dr Don) [facility] Custom Orthotics (E08.40, Z79.4) Diabetes mellitus [...] C. difficile diarrhea 10/18/2011 - Cataract 04/17/2013 [facility], Dr. Dada Rodríguez. Mild cataract in L eye- no need for cataract surgery at this time. Continue to follow u p the cataract. 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 At thi s time, we anticipate that the patient will be discharged home once cli nically stable. Plan: - Discuss needs with patient. - Collaborate [facility] Case management to facilitate DC process - Will continue to evalu ate during the post op period. - Desat study 11/14/14: patient will need home oxygen (2 L with exertion only) - Discharge home today with home ca re [facility]. Return to [facility] on Sun11/18/[address] [...] be addressed right away . Clarence Berry APRN.FOOD AND BEVERAGE ASSOCIATE ct brain wo ivcon o n 2020-04-26 CT BRAIN WO * * *Final Report* * * Normal 04-26 [facility] IVCON DATE OF EXAM: Apr 26 2020 4:04PM [place] ([id number]) [facility] 0504 - CT BRAIN WO [...] and im aged soft tissues are unremarkable. Resource Paraprofessional (topogram) images: No additional findings. IMPRESSION: No acute intracranial abnormality. Moderate burden of presumed chronic microvascular ischemic c hanges and remote left lacunar infarct in the left lentiform nucleus. Airplane Pilot Commercial: ABHILASH Transcribe Date/Time: Apr 26 2020 4:08P Dictated by : JOSÉ MIGUEL JOSHI MD This examination was interpreted and the report reviewed and electronically signed by: JOSÉ MIGUEL JOSHI MD on Apr 26 2020 4:12PM EST [id number] [facility] 2020-04-26 [facility] (FAMPWS) Normal 04-26-2020 [place] [facility] ANA IVORY ([id number]) 1940 [facility] Date Time Provider Department ([id number]) 04/26/20 [facility] During your visit today, we recorded [...] in the L eye. 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 Harlan Berry APRN.FOOD AND BEVERAGE ASSOCIATE 04/26/2020 12:16 PM Signed I think she [...] Diarrhea METFORMIN 05/10/2011 6 - Diarrhea NEOSPORIN ([id number]-[id number]*08/31/2008 2 - Rash Comments: blisters PROTONIX (PANTOPRAZOLE) [...] 2020-04-26 [facility] Office Visit (INTMWS) Normal 04-26-20 [place] [facility] ANA IVORY ([id number]) 1940 [facility] Date Time Provider Department (65796) 04/26/20 2:20 PM CLARENCE BERRY (LOLI) INTMWS [...] side of face from jaw t o alevism, no step off or deformity appreciated on [...] EVERY DAY NEEDED FOR FOR ANXIETY Insulin [place], Disposable, (EASY TOUCH) 31 gauge x 3/16 [...] (Dr Don) [facility] Orthotics (E08.40 , Z79.4) Diabetes [...] C. difficile diarrhea 10/18/2011 - Cataract 04/17/2013 [facility], Dr. Dada johnson Mild cataract in L eye- no need for cataract surgery at this time. Continue to follow up the cat aract. 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 At thi s time, we anticipate that the patient will be discharged home once c linically stable. Plan: - Discuss needs with patient. - Collaborate with Case management to facilitate DC process - Will continue to evaluate during the post op period. - Desat study 11/14/14: patient will need home oxygen (2 L with exertion only) - Discharge home today with [facility] for assistance with chest tube to [...] should be addressed right away. Clarence Berry APRN.FOOD AND BEVERAGE ASSOCIATE Clarence Berry APRN.CNS 04/26/2020 3:06 PM Addendum [...] Diarrhea METFORMIN 05/10/2011 6 - Diarrhea NEOSPORIN (UMCEAQIM-VXRNPSHJCO-EH*08/31/2008 2 - Rash Comments: blisters PROTONIX (PANTOPRAZOLE) [...] left eye [H53.8] Order(s):CT BRAIN WO IVCON [[id number]] Order #: [id number] FUT URE Prescriptions as of 04/26/2020 Sig: [...] on 04/26/20 No panel information on 2020-04-26 [facility] ([id number]) obsolete on 2020-04 OBSOLETE Refill (MIQ) Normal 04-13-2020 [place] [facility] ANA IVORY ([id number]) 1940 [place] Date Time Provider Department ([id number]) 04/13/20 ALICIA BLOUNT MIQ During your visit [...] Diarrhea METFORMIN 05/10/2011 6 - Diarrhea NEOSPORIN (CTGOBXEN-QVAQDVYWPK-YM*08/31/2008 2 - Rash Comments: blisters PROTONIX (PANTOPRAZOLE) [...] on 2020-03 OBSOLETE Refill (INTMWS) Normal 04-02-2020 [facility] ANA IVORY ([id number]) 1940 [facility] Date Time Provider Department ([id number]) 04/02/20 ALICIA BLOUNT INTMWS During your visit today, we recorded the following informati on about you: Libertad Burdick [facility] 04/02/2020 9:33 AM Signed Patient has been [...] Diarrhea METFORMIN 05/10/2011 6 - Diarrhea NEOSPORIN (OBJRXPYG-GYSCSCMBTR-NM*08/31/2008 2 - Rash Comments: blisters PROTONIX (PANTOPRAZOLE) 01/13/2010 6 - Diarrhea RELAFEN (NABUMETONE) 03/22/2006 8 - GI Upset 11 - Vomiting ACTOS (PIOGLITAZONE HCL) 12/03/2016 7 - Swelling Date Reviewed: 01/27/2020 Reviewed by: Cintia Macias LPN - Fully Assessed Reason for Visit: Refill Request [94] Order(s):Insulin [place], Disposable, (EASY TOUCH) 31 gauge x 3/16Use [...] Discontinued During This Encounter Prescriptions - Insulin [place], Disposabl e, (EASY TOUCH) 31 gauge x 16 ndle (Discontinued) Use 1 needle for each dose. 2x daily Encounter Status:Closed by CLARENCE LEVINE on 04/02/20 [facility]INT[facility]) Normal 04-02-2020 [place] [facility] ANA IVORY ([id number]) 1940 [facility] Date Time Provider Department ([id number]) 04/02/20 ALICIA BLOUNT INTWS During your visit today, we recorded the following informati on about you: Libertad Burdick [facility] 04/02/2020 9:36 AM Signed Ana Ivory is calling Alicia daniels MD today to request the following medication, not on her current list, please send to Ana Paula Whaley: codeine-guaiFENesin (VIRTUSSIN AC) 10-10 0 mg/5 mL syrup. Please notify patient once completed. Patient has been identified by name and birthdate. Duration of symptoms: N/A Person calling: self Call patient at: at home [phone] (home) [phone] (cell) Was an appointment scheduled: No Closing statement: Results or non-symptom based questions: Thank you for calling [facility], your call will be returned within the next business day. Libertad Burdick Pss Clarence Berry APRN.FOOD AND BEVERAGE ASSOCIATE 04/06/2020 7:29 AM Signed Rx sent. PDMP website checked and validated. All prescrip tions have been APPROPRIATELY filled. No suspicious activity was identified. 04/06/2020 by Clarence Berry APRN.FOOD AND BEVERAGE ASSOCIATE Allergies As of Date: 04/02/2020 Noted Allergy [...] Diarrhea METFORMIN 05/10/2011 6 - Diarrhea NEOSPORIN (MYMSHQTR-HHVVHEEIVY-SB*08/31/2008 2 - Rash Comments: blisters PROTONIX (PANTOPRAZOLE) [...] on 2020-03-13 CNPN Telephone (INTMWS) Normal 03-13-2020 [place] [facility] ANA IVORY ([id number]) 1940 [facility] Date Time Provider Department ([id number]) 03/13/20 ALICIA BLOUNT INTMWS During your visit today, we recorded the following informati on about you: Simran Russell Pss 03/13/2020 10:55 AM Signed Patient calling in needing her PT order faxed to [facility]. Simran Russell Pss Isabela Mendoza Cma [...] Diarrhea METFORMIN 05/10/2011 6 - Diarrhea NEOSPORIN (RBXBSPCI-HAJEFKWSNP-SA*08/31/2008 2 - Rash Comments: blisters PROTONIX (PANTOPRAZOLE) [...] Mannie mancini [facility] ANA IVORY ([id number]) 1940 [facility] Date Time Provider Department ([id number]) 02/27/20 ALICIA BLOUNT INTVENKAT During your visit [...] Diarrhea METFORMIN 05/10/2011 6 - Diarrhea NEOSPORIN (BXFEKRPA-BHQNONHMEA-YI*08/31/2008 2 - Rash Comments: blisters PROTONIX (PANTOPRAZOLE) [...] Status:Closed by RIDDHI MARIE LPN on 02/27/20 [facility] on 2020-02-19 [facility] Telephone (INTWS) Normal 02-19-2020 [place] [facility] ANA IVORY ([id number]) 1940 [facility] Date Time Provider Department ([id number]) 02/19/20 ALICIA BLOUNT INTWS During your visit today, we recorded the following informati on about you: Masni Preston LPN 02/19/2020 2:23 PM Signed Patient Robb calling asking for a handicap plac [place]wick rx, asking for one please. He said has never had one for hi s . 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 I explained what he would need t o do with the rx. Please advise Clarence Berry APRN.LOLI 02/20/2020 9:40 AM Signed See below, filed, please process Danielle Guido MA 02/20/2020 10:47 AM Signed Called and LM on to return call to [facility] and ask to speak with [facility] triage nurse. Please update that Rx has [...] Diarrhea METFORMIN 05/10/2011 6 - Diarrhea NEOSPORIN (VEXDPCRS-IQGCFGAFNJ-VP*08/31/2008 2 - Rash Comments: blisters PROTONIX (PANTOPRAZOLE) [...] 02-18-2020 Mannie mancini [facility] ANA IVOYR ([id number]) 1940 [facility] Date Time Provider Department ([id number]) 02/18/20 ALICIA BLOUNT INTMWS During your visit [...] Diarrhea METFORMIN 05/10/2011 6 - Diarrhea NEOSPORIN (EFSKSJNM-WRRUMQPUQR-YP*08/31/2008 2 - Rash Comments: blisters PROTONIX (PANTOPRAZOLE) [...] on 2020-02-13 CNPN Telephone (INTMWS) Normal 02-13-2020 [place] [facility] ANA IVORY ([id number]) 1940 [facility] Date Time Provider Department ([id number]) 02/13/20 ALICIA BLOUNT INTMWS During your visit [...] to have Physical Thera py done at [facility]. Please fax order and patient will schedule appointment. Yulisa Bills LPN 02/19/2020 7:56 AM Signed Order has been faxed to [facility] as requested. Allergies As of Date: [...] Diarrhea METFORMIN 05/10/2011 6 - Diarrhea NEOSPORIN (KZPBAWSR-JBZXFWLXCF-HJ*08/31/2008 2 - Rash Comments: blisters PROTONIX (PANTOPRAZOLE) 01/13/2010 6 - Diarrhea RELAFEN (NABUMETONE) 03/22/2006 8 - GI Upset 11 - Vomiting ACTOS (PIOGLITAZONE HCL) 12/03/2016 7 - Swelling Date Reviewed: 01/27/2020 Reviewed by: Cintia Macias LPN - Fully Assessed Reason for Visit: [facility] Speech [Other] Primary Visit Diagnosis:Stroke determine d by clinical assessment ([facility]) [I63.9] Other Visit Diagnoses:LUMBAR DISC DISPLACEMENT [M51.26] 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 Author Type: Physician Type: Progress Notes Filed: 01/27/2020 4:59 PM Note Text: This note was created using [employer]riter. Subjective Ana Ivory is a 79 year [...] appointment with Dr. Nacho Munguia (Endocrinology at [facility]) at the end of this month. [...] C. difficile diarrhea 10/18/2011 - Cataract 04/17/2013 [facility], Dr. Dada Rodríguez. Mild cataract in L eye- no need for cataract surgery at this time. Continue to follow u p the cataract. 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 At [facility] s time, we anticipate that the patient [...] Don) - [facility] [employer] [facility] (E08.40 , Z79.4) Diabetes [...] s by mouth once daily. - Insulin [place], Disposable, (EASY TOUCH) 31 gauge x 3/16 [...] Negative Negative Ketones, Urine Negative Negative Specific [place], Ur 1.005 - 1.030 1.014 Hemoglobin/Blood,Ur Negative [...] Ratio <30 mg/g 668 (H) Not calculated [place] Free, Serum 3.30 - 19.40 mg/L 19.8 [...] ICD-10-CM 1. Stroke determined by clinical assessment ([facility]) I63.9 Left hemispheric stroke with right sided weakness.Gait insta bility and word finding problems noted. 2. 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 Essential hypertension I10 Fair [...] after appt, reviewed last progress note with MANAGER AGRICULTURAL and diagnosis of Bronch iectasis noted.F/U prn [...] outside provider on resul ts of the [place], Lambda and kappa/lambda serum ratio. Discussed they [...] order in scan ed documents--Dr. Pandya at [facility] ordered the test for diagnosis of [...] and/or coordi nating care for the patient. Igpc-tw-rrcs time was at least 45 minutes. MD bony Rodríguez on 2020-01-27 CNPN Telephone (INTMWS) Normal 01-27-2020 [place] ANA Caro ([id number]) 1940 [facility] Date Time Provider Department ([id number]) 01/27/20 ALICIA BLOUNT INTMWS During your visit [...] notify nurse please? Please advise Clarence Berry APRN.FOOD AND BEVERAGE ASSOCIATE 01/27/2020 10:56 AM Addendum need supplements added below frequency, route - daily oral? Should be taking these medic ations unless discontinued by provider: sumatriptan as needed (Alicia Blount MD) and cephalexin (Dr. Don) . See office encounter this date. Juana Muro LPN 01/27/2020 4:11 PM Signed Reviewed supplements, added to Med list with [facility] Nurse. Advised of below recommendat ion, [...] using ABRAM: No Authorizing Provider: CLARENCE BERRY (FOOD AND BEVERAGE ASSOCIATE) Cranberry-Vitamin C-Vitamin E (CRANBERRY PLUS VITAMIN C) [...] Diarrhea METFORMIN 05/10/2011 6 - Diarrhea NEOSPORIN (PRFRTWXP-WIQGHAJPPO-JV*08/31/2008 2 - Rash Comments: blisters PROTONIX (PANTOPRAZOLE) [...] Status:Closed by ALICIA BLOUNT MD on 01/27/20 [facility] Telephone (INTMWS) Normal 01-27-2020 [place] ANA Caro ([id number]) 1940 [facility] Date Time Provider Department ([id number]) 01/27/20 ALICIA BLOUNT INTMWS During your visit today, we recorded the following informati on about you: Chelsy Vogel RN 01/27/2020 3:42 PM Signed [facility] Speech Therapist Melva #[phone], calls to report breanna n of care for patient. She will visit amna ent 1 x week one and 2 times 2 weeks to assist with compensatory strategies of word finding. No need to call back if agreeable. Chelsy Berry, ONION TOPPER.FOOD AND BEVERAGE ASSOCIATE 01/27/2020 3:53 PM Signed [place] Allergies As [...] Diarrhea METFORMIN 05/10/2011 6 - Diarrhea NEOSPORIN (KAYWSBNP-AQELYJDELS-MD*08/31/2008 2 - Rash Comments: blisters PROTONIX (PANTOPRAZOLE) [...] 2020-01-27 [facility] Office Visit (INTMWS) Normal 01-27-20 [place] [facility] ANA IVORY ([id number]) 1940 [place] Date Time Provider Department ([id number]) 01/27/20 8:40 AM ALICIA BLOUNT INTMWS During your visit today, we recorded the following informati on about you: Pulse Respiration Blood pressure Weight 68/minute 20/minute 140/70 59 kg Alicia Blount MD 01/27/2020 4:59 PM Signed This note was created using [employer]riter. Subjective Ana Ivory is a 79 year [...] appointment with Dr. Nacho Munguia (Endocrinology at [facility]) at the end of this month. [...] C. difficile diarrhea 10/18/2011 - Cataract 04/17/2013 [facility], Dr. Dada johnson Mild cataract in L eye- no need for cataract surgery at this time. Continue to follow up the cat aract. 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 At thi s time, we anticipate that the patient will be discharged home once c linically stable. Plan: - Discuss needs with patient. - Collaborate with Case management to facilitate DC process - Will continue to evaluate during the post op period. - Desat study 11/14/14: patient will need home oxygen (2 L with exertion only) - Discharge home today with [facility] for assistance with chest tube to [...] by mouth twice daily. (Dr Don) - [employer] [facility] [place] [employer] [facility] [facility] (E08.40, Z79.4) Diabetes [...] les by mouth once daily. - Insulin [place], Disposable, (EASY CARROL CH) 31 gauge x [...] Negative Negative Ketones, Urine Negative Negative Specific [place], Ur 1.005 - 1.030 1.014 Hemoglobin/Blood,Ur Negative [...] Ratio <30 mg/g 668 (H) Not calculated [place] Free, Serum 3.30 - 19.40 mg/L 19.8 [...] ICD-10-CM 1. 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 2. 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, with long-term current use of insulin ([facility]) E08.40 Z79.4 3. Essential hypertension I10 Fair [...] after appt, reviewed last progress note with MANAGER AGRICULTURAL and diagnosis of Bronchiectasis noted.F/U prn Though [...] with outside provider on results of the [place], Lambda and kappa/lambda serum ratio. Discussed they [...] order in scanned documents--Dr. Anshul britton at [facility] ordered the test for diagnosis of polyneuropathy) [...] counseling and/or coordinating care for the patient. Yraa-rh-lefo time was at least 45 minutes. Alicia Blount MD Referring Provider: CLARENCE BERRY (FOOD AND BEVERAGE ASSOCIATE) [[id number]] Allergies As of Date: 01/27/2020 Noted Allergy [...] Diarrhea METFORMIN 05/10/2011 6 - Diarrhea NEOSPORIN (DFEFSBOH-WPUDNOFLHZ-PM*08/31/2008 2 - Rash Comments: blisters PROTONIX (PANTOPRAZOLE) 01/13/2010 6 - Diarrhea RELAFEN (NABUMETONE) 03/22/2006 8 - GI Upset 11 - Vomiting ACTOS (PIOGLITAZONE HCL) 12/03/2016 7 - Swelling Date Reviewed: 01/27/2020 Reviewed by: Cintia Macias LPN - Fully Assessed Reason for Visit: Follow Up [171] Primary Visit Diagnosis:Stroke determine d by clinical assessment ([facility]) [I63.9] Comment:Left hemispheric stroke with right sided weakness.Gait instability and word finding problems noted. Other Visit Diagnoses:Diabetes 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 co ndition with diabetic neuropathy, with long-term current use of insulin ([facility]) [E08.40, Z79.4] Essential hypertension [I10] Comment:Fair control [...] after appt, reviewed last progress note with MANAGER AGRICULTURAL and diagnosis of Bronchiectasis noted.F/U prn Order(s):ketoconazole [...] Status:Closed by ALICIA BLOUNT MD on 01/27/20 [facility] on 2020-01-26 [facility] (INTMWS) Normal 01-26-2020 [place] [facility] ANA IVORY ([id number]) 1940 [facility] Date Time Provider Department ([id number]) 01/26/20 ALICIA BLOUNT INTMWS During your visit today, we recorded the following informati on about you: Mansi Preston BRASS POURER 01/26/2020 2:29 PM Signed Jannette Blair from [facility] Home Health OT plan of care 2 vis its weekly for 3 weeks working on ADL, strengthening, hand writing. Clarence Berry APRN.FOOD AND BEVERAGE ASSOCIATE 01/26/2020 2:41 PM Signed [place], see below [...] Diarrhea METFORMIN 05/10/2011 6 - Diarrhea NEOSPORIN (NCRSSPLL-BVJRJTFEME-KQ*08/31/2008 2 - Rash Comments: blisters PROTONIX (PANTOPRAZOLE) 01/13/2010 6 - Diarrhea RELAFEN (NABUMETONE) 03/22/2006 8 - GI Upset 11 - Vomiting ACTOS (PIOGLITAZONE HCL) 12/03/2016 7 - Swelling Date Reviewed: 01/08/2020 Reviewed by: Isabela Mendoza Lawn Mower - Fully Assessed Reason for Visit: OT [...] Status:Closed by CINTIA MACIAS LPN on 01/27/20 [facility] Telephone ([facility]) Normal 01-26-2020 [place] [facility] ANA IVORY ([id number]) 1940 [facility] Time Provider Department ([id number]) 01/26/20 ALICIA BLOUNT During your visit today, we recorded the following informati on about you: Libertad Burdick Pss 01/26/2020 3:30 PM Signed Aan Wheeler Dianelys is a patient of MD [...] calling: self Call patient at: on cell [phone] (home) [phone] (cell) Was an appointment scheduled: No Closing statement: Results or non-symptom based questions: Thank you for calling [facility], your call will be returned within the next business day. Libertad Anthonying Pss Isabela Hernandez Rosalbadal Lawn Mower 01/26/2020 3:32 PM Signed Looks like patient has one touch device. Unsure what micro lancets to choose. Please advise. Thank you. Clarence Berry APRN.FOOD AND BEVERAGE ASSOCIATE 01/27/2020 8:13 AM Signed Rx sent Allergies [...] Diarrhea METFORMIN 05/10/2011 6 - Diarrhea NEOSPORIN (RBTEKUDZ-EJQZWQKPRX-WJ*08/31/2008 2 - Rash Comments: blisters PROTONIX (PANTOPRAZOLE) 01/13/2010 6 - Diarrhea RELAFEN (NABUMETONE) 03/22/2006 8 - GI Upset 11 - Vomiting ACTOS (PIOGLITAZONE HCL) 12/03/2016 7 - Swelling Date Reviewed: 01/08/2020 Reviewed by: Isabela Mendoza Lawn Mower - Fully Assessed Reason for Visit: lancets [...] 25 Hydroxy 43.5 31.0-80.0 ng/mL Normal 0 [facility] (53066) Comment: Result Comment: Classificati on of 25 [place] Vitamin D status: Insufficiency/Moderate Defic iency: < or = 30 ng/mL Sufficiency/Optimal Levels: 31 to 80 ng/mL Toxicity: > 100 ng/mL Test performed by chemilumin escent immunoassay. Performed By: #### FT4, TSH, HBA1C, VITD ####[facility] [address] levelandAlison Ville [phone] vitamin b12 on 2019 Cobalamin (Vitamin B12) 939 577-6285 pg/mL Normal 2019 [facility] [Mass/Vol] [place] (43582) Comment: Performed By: #### B12, SERF OL, KLFRS ####[facility] AveCuniversity hospitals [facility] medical centerandRobert Ville [address] [phone] urinalysis with microscopic on 2020-01-22 Bilirubin, Urine Negative Negative Normal 01-22-2020 [facility] (57769) Comment: Performed By: #### UAWMIC ## ##[facility] AveClevelandAlison Ville [phone] Clarity (U) Slightly Cloudy Clear Critically abnormal [facility] (14603) Comment: Performed By: #### UAWMIC ## ##[facility] [address] AveClevelandAlison [place]ille [phone]- [phone] Color (U) Light Yellow Yellow Critically abnormal 020 [facility] (31345) Comment: Performed By: #### UAWMIC ## ##[facility] AveClevelandAlison [place]ille [phone] Comments SEE COMMENT Normal 01-22-2020 [facility] (43375) Comment: Result Comment: N/A Performed By: #### UAWMIC ## ##[facility] AveClevelandAlison Ville [phone]- [phone] Epithelial cells LM.HPF SEE COMMENT Normal 01-11 [facility] (Urine sed) [#/Area] [place] (55485) Comment: Result Comment: Few Squamous Epithelial Cells Performed By: #### UAWMIC ## ##[facility] AveClevelandAlison Ville [phone]- [phone] Glucose Ql (U) Negative Negative Normal 01-22-2020 [facility] (68909) Comment: Performed By: #### UAWMIC ## ##[place] [address] AveCArmonk, [place] [phone]- [phone] Hemoglobin/Blood,Ur Negative Negative Normal 01-22-2020 [facility] (77397) Comment: Performed By: #### UAWMIC ## ##[place] [address]CArmon[address], [place] [phone]- [phone] Ketones Ql (U) Negative Negative Normal 01-22-2020 [facility] (19698) Comment: Performed By: #### UAWMIC ## ##[place] [address]CArmon[address], [place] [phone]- [phone] Leukest 2+ Negative Critically abnormal 01-22-2020 [facility] (23481) Comment: Performed By: #### UAWMIC ## ##[place] [address]CArm[address], [place] [phone]- [phone] Nitrite Ql (U) Negative Negative Normal 01-22-2020 [facility] (37413) Comment: Performed By: #### UAWMIC ## ##[place] [address] MicroarraysSan [place], [place] [phone]- [phone] pH (Bld) 6.0 5.0-8.0 Normal 01-22-2020 [facility] (17608) Comment: Performed By: #### UAWMIC ## ##[place] [address]CA[address], [place] [phone]- [phone] Protein (U) [Mass/Vol] Negative Negative mg/dL Normal 020 [facility] (39803) Comment: Performed By: #### UAWMIC ## ##[place] [address]CArm[address], [place] [phone] RBC (U) [#/Vol] 0-3 0-3 Normal 01-22-2020 [facility] (38767) Comment: Performed By: #### UAWMIC ## ##[facility] AveClevelandAlison [place]ille [phone]- [phone] Specific [place], Ur 1.014 1.005-1.030 Normal 020 [facility] (64013) Comment: Performed By: #### UAWMIC ## ##[facility] AveClevelandAlison [place] [phone]- [phone] Urine Sam Comment SEE COMMENT Normal 01-22-2020 [facility] (60667) Comment: Result Comment: N/A Performed By: #### UAWMIC ## ##[place] [address] AveCSteven [place]ille [phone]- [phone] Urobilinogen Qn (U) Negative Negative Normal 01-22-2020 [facility] (25467) Comment: Performed By: #### UAWMIC ## ##[place] [address]CSteven [place] [phone]- [phone] WBC (Bld) [#/Vol] 6-10 0-5 Critically abnormal [facility] (52317) Comment: Performed By: #### UAWMIC ## ##[place] [address]CSte[address] [place] [phone]- [phone] tsh on 2020-01-22 TSH Qn 3.670 0.270-4.200 uU/mL Normal 01-22-2020 [facility] (99815) Comment: Performed By: #### FT4, TSH, HBA1C, VITD ####[facility]C levelandAlison Ville [phone] kappa/abraham,free,ser on 2020-01-22 K/L Ratio, Serum 1.69 0.26-1.65 High 01-22-2020 [facility] (95474) Comment: Performed By: #### B12, SERF OL, KLFRS ####[facility] AveClevelAndrew Ville [address] [phone] [place], Free, Serum 19.8 3.30-19.40 mg/L High 01-22-2020 [facility] (08533) Comment: Result Comment: Test perform ed by an immunoturbidimetric assay on Optilite instrument from [facility] . Immunoglobulin free light chain assay results should be interpreted in con junction with other tests and in correlation with clinical picture. Performed By: #### B12, SERF OL, KLFRS ####[facility] AveCMichael [place] [address] [phone] Lambda, Free, Serum 11.7 5.7-26.3 mg/L Normal 01-22-2020 [facility] (93855) Comment: Result Comment: Test perform ed by an immunoturbidimetric assay on Optilite instrument from [facility] . Immunoglobulin free light chain assay results should be interpreted in con junction with other tests and in correlation with clinical picture. Performed By: #### B12, SERF OL, KLFRS ####[place] [address] AveCMichael [place] [address] [phone] hemoglobin a1c on 2 HbA1c (Bld) [Mass fraction] 7.2 4.3-5.6 % High [facility] (26855) Comment: Result Comment: [place] Edilma betes Association guidelines indicate that patients with HgbA1c in the range 5.7-6.4% are at increased risk for development of diabetes, and intervention by lifestyle modification may be beneficial. HgbA1c greater o r equal to 6.5% is considered diagnostic of diabetes. Performed By: #### FT4, TSH, HBA1C, VITD ####[facility] [place], [place] [phone] HbA1c (Bld) [Mass fraction] 160 mg/dL Normal [facility] (30821) Comment: Result Comment: eAG: (Estima amando average glucose) is a calculated value from HgbA1c and is community health program representative of the average blood glucose level in the last 2-3 month period. Performed By: #### FT4, TSH, HBA1C, VITD ####[facility] [address] [place], [place] [phone] free t4 on Free T4 [Mass/Vol] 1.1 0.9-1.7 ng/dL Normal 01-22-2020 [facility] (52643) Comment: Performed By: #### FT4, TSH, HBA1C, VITD ####[facility] [address] [place], [place] [phone] folate, serum on 30-01-11 Folate [Mass/Vol] 13.8 >4.7 ng/mL Normal 01-22-2020 [facility] (09750) Comment: Performed By: #### B12, SERF OL, KLFRS ####[facility] [address], [place] [phone] comp metabolic panel on 2020-01-22 Albumin [Mass/Vol] 4.3 3.9-4.9 g/dL Normal 01-22-2020 [facility] (11861) ALP [Catalytic 83 34-123 U/L Normal 01-22-[address] [facility] activity/Vol] Clevel and (18165) ALT [Catalytic 14 7-38 U/L Normal 01-22-[address] [facility] activity/Vol] Clevel and (60524) Anion gap 9 9-18 mmol/L Normal 01-22-2020 [facility] [Moles/Vol] Clevelan d (98692) AST [Catalytic 14 13-35 U/L Normal 01-22-[address] [facility] activity/Vol] Clevel and (33023) Bilirubin [Mass/Vol] 0.4 0.2-1.3 mg/dL Normal 0 [facility] (33326) Calcium [Mass/Vol] 9.3 8.5-10.2 mg/dL Normal 01-22-2020 [facility] (34038) Chloride [Moles/Vol] 103 97-105 mmol/L Normal 0 [facility] (14355) CO2 [Moles/Vol] 27 22-30 mmol/L Normal 01-22-2020 [facility] (65043) Creatinine 0.61 0.58-0.96 mg/dL Normal 01-22-2020 [facility] [Mass/Vol] [place] (70666) eGFR- Amer. >60 Normal 01-22-2020 [facility] (30532) GFR/1.73 sq M >60 mL/min/{1.73_m Normal 01-22-2020 [facility] predicted among 2} Clev rufina (39040) non-blacks MDRD (S/P/Bld) [Vol rate/Area] Comment: Result [...] Glucose [Mass/Vol] 168 74-99 mg/dL High 01-22-2020 [facility] (72331) Comment: Result Comment: The [place] Diabetes Association (ADA) provides guidance for cutoff [...] for diagnosis of diabetes. Reference: Standards of [facility] Care in Diabetes 2016, [place] Diabetes Association. Diabetes Care. 2016.39(Suppl 1). Potassium [Moles/Vol] 4.2 3.7-5.1 mmol/L Normal 01-22-20 20 [facility] (98670) Protein [Mass/Vol] 7.2 6.3-8.0 g/dL Normal 01-22-2020 [facility] (60023) Sodium [Moles/Vol] 139 136-144 mmol/L Normal 01-22-2020 [facility] (94112) Urea nitrogen [Mass/Vol] 12 7-21 mg/dL Normal 01-21 [facility] (89079) cbc on 2020-01-22 Absolute nRBC <0.01 <0.01 Normal 01-22-2020 [facility] (95417) Erythrocyte distribution 12.7 11.5-15.0 % Normal 01-21 [facility] width (RBC) [Ratio] [place] (31199) Hematocrit (Bld) [Volume 38.1 36.0-46.0 % Normal 01-21 [facility] fraction] [place] (81468) Hemoglobin (Bld) 13.2 11.5-15.5 g/dL Normal 01-22-2020 Cl [facility] [place] [Mass/Vol] [place] (04815) MCH (RBC) [Entitic mass] 31.2 26.0-34.0 pG Normal 01-21 [facility] (06325) MCHC (RBC) [Mass/Vol] 34.6 30.5-36.0 g/dL Normal 01-22-20 20 [facility] (67939) MCV (RBC) [Entitic vol] 90.1 80.0-100.0 fL Normal 01-21 [facility] (70684) Platelet mean volume 9.4 9.0-12.7 fL Normal 0 [facility] (Bld) [Entitic vol] [place] (50170) Platelets (Bld) [#/Vol] 219 150-400 k/uL Normal 2019 [facility] (07267) RBC (Bld) [#/Vol] 4.23 3.90-5.20 m/uL Normal 01-22-2020 C [facility] (21907) WBC (Bld) [#/Vol] 5.65 3.70-11.00 k/uL Normal 01-22-2020 [facility] (55235) albumin/creat ratio on 2020-01-22 Albumin Urine Random <12.0 Normal 0 [facility] (04688) Comment: Performed By: #### UACR #### [facility] [address] [place], [place] [phone] Albumin/Creat Ratio Not calculated <30 Normal 01-21 [facility] (97001) Comment: Performed By: #### UACR #### [facility] [address] [place], [place] [phone] Creatinine,Urine,Ran 68.1 20-300 mg/dL Normal 0 [facility] (05532) Comment: Performed By: #### UACR #### [facility] [place], [place] [phone] cnpn on 2020-01-21 CNPN Telephone (INTMWS) Normal 01-21-2020 [place] [facility] ANA IVORY ([id number]) 1940 [facility] Date Time Provider Department () 01/21/20 ALICIA BLOUNT INTMWS During your visit today, we recorded the following informati on about you: Minor Zamora 01/21/2020 1:45 PM Signed Marlene Osorio / [facility] PT calls with plan of care. [...] Diarrhea METFORMIN 05/10/2011 6 - Diarrhea NEOSPORIN (IYYHYVFY-RXODAEDTIQ-QD*08/31/2008 2 - Rash Comments: blisters PROTONIX (PANTOPRAZOLE) 01/13/2010 6 - Diarrhea RELAFEN (NABUMETONE) 03/22/2006 8 - GI Upset 11 - Vomiting ACTOS (PIOGLITAZONE HCL) 12/03/2016 7 - Swelling Date Reviewed: 01/08/2020 Reviewed by: Isabela Mendoza Lawn Mower - Fully Assessed Reason for Visit: PT [...] LPN on 01/21/20 nemesion on 2020[facility]01-[facility]) Normal 01-20-2020 [facility] ANA Caro ([id number]) 1940 [facility] [address] [facility] Date Time Provider Department ([id number]) 01/20/20 ALICIA BLOUNT INTMWS During your visit today, we recorded the following informati on about you: Chelsy Vogel RN 01/20/2020 10:09 AM Signed Granddaughter Coby calls- Requests referral to endocr inology as sugars more out of control recently. Would like patient to see Dr. Munguia at [facility], please fax to #[phone]. Please review and advise. MANNY Santamaria MD 01/20/2020 10:20 AM Signed Filed order Noted granddaughter requested referral to Dr. Munguia. Have patient let me know how sugars are doing as well. Mansi Preston BRASS POURER 01/20/2020 10:48 AM Signed Phoned grand daughter [...] Diarrhea METFORMIN 05/10/2011 6 - Diarrhea NEOSPORIN (IMLNWOOH-ECQIOBHKIJ-AQ*08/31/2008 2 - Rash Comments: blisters PROTONIX (PANTOPRAZOLE) 01/13/2010 6 - Diarrhea RELAFEN (NABUMETONE) 03/22/2006 8 - GI Upset 11 - Vomiting ACTOS (PIOGLITAZONE HCL) 12/03/2016 7 - Swelling Date Reviewed: 01/08/2020 Reviewed by: Isabela Mendoza Lawn Mower - Fully Assessed Reason for Visit: endocrinology consult [Other] Primary Visit Diagnosis:Type 2 diabetes mellitus without c omplication, with long-term current use of insulin ([facility]) [E11.9, Z79.4] Other Visit Diagnosis:Type 2 diabetes mellitus with hypergly cemia, with long-term current use of insulin ([facility]) [E11.65, Z79.4] Order(s):CONSULT TO ENDOCRINOLOGY [9007] Order #: [id number] Qty: 1 FUTURE Prescriptions as of 01/20/2020 [...] 01/20/20 progress on 2019-12 PROGRESS HNO ID: [id number] Normal 01-08-2020 [facility] Author: Alicia Blount [place] ([id number]) Service: ? Author Type: Physician Type: Progress Notes Filed: 01/19/2020 12:04 AM Note Text: This note was created using NeoMedia Technologiesriter. Subjective Ana Ivory is a 79 year [...] to presenting in e emergency department at [facility]. Also noticed decre ased ability to control [...] visit. TRANSITION CARE MANAGEMENT (TCM) INITIAL CONTACT Computational Theory Scientist Outreach Provider Action/FYI: Initial contact with patient post discharge, spoke to myrtle sumner Patient identified by name and . TRANSITION CARE MANAGEMENT INITIAL OUTREACH DOCUMENTATION: Date of Outreach: 01/06/2020 Outreach Attempt 1: Contact Made Date of Discharge 01/03/2020 Some recent data might be hidden SUMMARY: -Pt discharged from [facility] on 01/03/20. -Admitted for: CVA Do [...] C. difficile diarrhea 10/18/2011 - Cataract 04/17/2013 [facility], Dr. Dada Rodríguez. Mild cataract in L eye- no need for cataract surgery at this time. Continue to follow u p the cataract. 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 At thi s time, we anticipate that the patient will be discharged home once cli nically stable. Plan: - Discuss needs with patient. - Collaborate [facility] Case management to facilitate DC process - [...] daily. (Dr Don) - [facility] [employer] [facility] (E08.40 , Z79.4) Diabetes [...] s by mouth once daily. - Insulin [place], Disposable, (EASY TOUCH) 31 gauge x 3/16 [...] Lancets (ONETOUCH ULTRASOFT LANCETS) lancets Test blood dagile gar(s) 2 times daily. Dx: Type 2 [...] ICD-10-CM 1. Stroke determined by clinical assessment ([facility]) I63.9 Left hemispheric with right sided weakness [...] with long- term current use of insulin ([facility]) E11.9 Z79.4 Discussed hospital stay and evaluation [...] and/or coordi nating care for the patient. Nhnp-cj-bnnx time was at least 40 minutes. Alicia Blount MD PROGRESS HNO ID: [id number] Normal 01-08-2020 [facility] Author: Alicia Blount [place] ([id number]) Service: ? Author Type: Physician Type: Progress Notes Filed: 01/08/2020 8:53 AM Note Text: Below noted cnov on 2020-01-08 CNOV Office Visit (INTMWS) Normal 01-07-20 20 [place] [facility] ANA IVORY ([id number]) 1940 [facility] Date Time Provider Department ([id number]) 01/08/20 9:00 AM ALICIA BLOUNT INTMWS During your visit today, we recorded the following informati on about you: Temperature Pulse Respiration Blood pressure 96 degrees 70/minute 16/minute 110/78 Weight 58.5 kg Alicia Blount MD 01/19/2020 12:04 AM Signed This note was created using NeoMedia Technologiesriter. Subjective Ana Ivory is a 79 year [...] presenting in the emergency departmen t at [facility]. Also noticed decreased ability to control her [...] visit. TRANSITION CARE MANAGEMENT (TCM) INITIAL CONTACT Computational Theory Scientist Outreach Provider Action/FYI: Initial contact with patient post discharge, spoke to myrtle sumner Patient identified by name and . TRANSITION CARE MANAGEMENT INITIAL OUTREACH DOCUMENTATION: Date of Outreach: 01/06/2020 Outreach Attempt 1: Contact Made Date of Discharge 01/03/2020 Some recent data might be hidden SUMMARY: -Pt discharged from [facility] on 01/03/20. -Admitted for: CVA Do [...] C. difficile diarrhea 10/18/2011 - Cataract 04/17/2013 [facility], Dr. Dada johnson Mild cataract in L eye- no need for cataract surgery at this time. Continue to follow up the cat aract. 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 At thi s time, we anticipate that the patient will be discharged home once c linically stable. Plan: - Discuss needs with patient. - Collaborate with Case management to facilitate DC process - Will continue to evaluate during the post op period. - Desat study 11/14/14: patient will need home oxygen (2 L with exertion only) - Discharge home today with [facility] for assistance with chest tube to [...] by mouth twice daily. (Dr Don) - [employer] [facility] [place] [employer] [place] (E08.40, Z79.4) Diabetes [...] les by mouth once daily. - Insulin [place], Disposable, (EASY CARROL CH) 31 gauge x [...] ICD-10-CM 1. Stroke determined by clinical assessment ([facility]) I63.9 Left hemispheric with right sided weakne [...] counseling and/or coordinating care for the patient. Plxb-gt-hlfm time was at least 40 minutes. Alicia Blount MD Referring Provider: ALICIA BLOUNT [[id number]] Allergies As of Date: 01/08/2020 Noted Allergy [...] Diarrhea METFORMIN 05/10/2011 6 - Diarrhea NEOSPORIN (EUHJJHYY-OHRKMYAZDC-QK*08/31/2008 2 - Rash Comments: blisters PROTONIX (PANTOPRAZOLE) 01/13/2010 6 - Diarrhea RELAFEN (NABUMETONE) 03/22/2006 8 - GI Upset 11 - Vomiting ACTOS (PIOGLITAZONE HCL) 12/03/2016 7 - Swelling Date Reviewed: 01/08/2020 Reviewed by: Isabela Mendoza Lawn Mower - Fully Assessed Reason for Visit: Transition Of Care [4074] Primary Visit Diagnosis:Stroke determine d by clinical assessment ([facility]) [I63.9] Comment:Left hemispheric with right sided weakness [...] complication, with long-term current use of insulin ([facility]) [E11.9, Z79.4] Order(s):atorvastatin (LIPITOR) 20 mg tabletTake [...] on 2020-01-08 CNCO Letter Text Normal 01-08-2020 [facility] ([id number]) progress on 2019-12 PROGRESS HNO ID: [id number] Normal 01-06-2020 [facility] Author: Alicia Blount [place] ([id number]) Service: ? Author Type: Physician Type: Progress Notes Filed: 01/08/2020 8:53 AM Note Text: TRANSITION CARE MANAGEMENT (TCM) INITIAL CONTACT Computational Theory Scientist Outreach Provider Action/FYI: Initial contact with patient post discharge, spoke to myrtle sumner Patient identified by name and . TRANSITION CARE MANAGEMENT INITIAL OUTREACH DOCUMENTATION: Date of Outreach: 01/06/2020 Outreach Attempt 1: Contact Made Date of Discharge 01/03/2020 Some recent data might be hidden SUMMARY: -Pt discharged from [facility] on 01/03/20. -Admitted for: CVA Do [...] 2019-12 OBSOLETE Refill (INTMWS) Normal 01-06-2020 [facility] ANA IVORY ([id number]) 1940 [facility] Date Time Provider Department ([id number]) 01/06/20 ALICIA BLOUNT INTMWS During your visit today, we recorded the following informati on about you: Mitzi Crystalelder [facility] 01/06/2020 9:01 AM Signed Patient has been identified by name and date of : Yes Pending Prescriptions Disp Refills LORAZEPAM 1 MG TABLET 30 tablet 2 Sig: TAKE 1/2 TO 1 TABLET BY MOUTH EVERY DAY NEEDED FOR F OR ANXIETY BULL Class: C-IV ABRAM: No RX INSTRUCTIONS: Patient aware RX will be sent to pharmacy. No need to notify patient. Mitzi Crystalelder [facility] Juana Muro LPN 01/06/2020 11:36 AM Signed [...] Diarrhea METFORMIN 05/10/2011 6 - Diarrhea NEOSPORIN ([id number]-[id number]-PN*08/31/2008 2 - Rash Comments: blisters PROTONIX (PANTOPRAZOLE) [...] CNPTOUTREACH Patient Outreach (INTMWS) Normal 0 01-06-2020 [place] [facility] ANA IVORY ([id number]) 1940 [facility] Date Time Provider Department ([id number]) 01/06/20 ALICIA BLOUNT INTMWS During your visit today, we recorded the following informati on about you: Alicia Blount MD 01/08/2020 8:53 AM Signed TRANSITION CARE MANAGEMENT (TCM) INITIAL CONTACT Computational Theory Scientist Outreach Provider Action/FYI: Initial contact with patient post discharge, spoke to myrtle sumner Patient identified by name and . TRANSITION CARE MANAGEMENT INITIAL OUTREACH DOCUMENTATION: Date of Outreach: 01/06/2020 Outreach Attempt 1: Contact Made Date of Discharge 01/03/2020 Some recent data might be hidden SUMMARY: -Pt discharged from [facility] on 01/03/20. -Admitted for: CVA Do [...] Diarrhea METFORMIN 05/10/2011 6 - Diarrhea NEOSPORIN (SJREVVVF-JBSZYPNSJI-EG*08/31/2008 2 - Rash Comments: blisters PROTONIX (PANTOPRAZOLE) [...] MD on 01/08/20 cnpn on 2020-01-06 [facility] Normal 01-06-2020 [place] [facility] ANA IVORY ([id number]) 1940 [facility] Date Time Provider Department ([id number]) 01/06/20 ALICIA BLOUNT INTMWS During your visit today, we recorded the following informati on about you: Sahra Harman RN 01/06/2020 2:54 PM Signed Pt's family member called, verified pt by name a nd birthdate. They would like to have pt start home PT AND ST with [facility]. If PCP approves, please notify [facility]. Pt has apt with provider on 01-08-2020 Sahra Blount MD 01/07/2020 1:25 PM Signed Approve as requested Juana Muro LPN 01/07/2020 2:15 PM Signed Patient scheduled to see Dr. Blount, . Will send Order, Demographic sheet, Med list, Office notes to [phone]. Juana britton LPN Allergies As of Date: [...] Diarrhea METFORMIN 05/10/2011 6 - Diarrhea NEOSPORIN (ZEHXYLBJ-QXDJYBHYYP-WZ*08/31/2008 2 - Rash Comments: blisters PROTONIX (PANTOPRAZOLE) [...] on 01/07/20 CNPN Telephone (INTMWS) Normal 01-06-2020 [place] [facility] ANA IVORY ([id number]) 1940 [facility] Date Time Provider Department ([id number]) 01/06/20 ALICIA BLOUNT INTErisWS During your visit [...] Diarrhea METFORMIN 05/10/2011 6 - Diarrhea NEOSPORIN ([id number]-LAXEPNKLSE-LS*08/31/2008 2 - Rash Comments: blisters PROTONIX (PANTOPRAZOLE) [...] mancini [facility] ERIKANA LOWE Summer ([id number]) 1940 [facility] Date Time Provider Department ([id number]) 12/03/19 ALICIA BLOUNT INTMWS During your visit [...] Diarrhea METFORMIN 05/10/2011 6 - Diarrhea NEOSPORIN (ZRQUCRTI-TYYVPNQTUM-GZ*08/31/2008 2 - Rash Comments: blisters PROTONIX (PANTOPRAZOLE) [...] on 2019-10-28 CNPN Telephone (INTMWS) Normal 10-28-2019 [place] [facility] ANA IVORY ([id number]) 1940 [facility] Date Time Provider Department ([id number]) 10/28/19 ALICIA BLOUNT INTVENKAT During your visit [...] al lergy ASPIRIN 04/16/2018 15 - Contraindication-Medical Dagile* Comments: GI bleed BONIVA (IBANDRONATE) 12/04/2008 8 - GI Upset Comments: Esophageal burning CARAFATE (SUCRALFATE) 04/24/2012 14 - Other: See Comments Comments: feels poorly CIPROFLOXACIN 12/01/2013 14 - Other: See Comments Comments: photosensitivity, dermatitis CODEINE 08/24/2005 8 - GI Upset IBUPROFEN 03/22/2006 8 - GI Upset IODINE 08/25/2008 11 - Vomiting LANSOPRAZOLE 11/01/2011 6 - Diarrhea METFORMIN 05/10/2011 6 - Diarrhea NEOSPORIN ([id number]-ZDQUWOBPMX-FV*08/31/2008 2 - Rash Comments: blisters PROTONIX (PANTOPRAZOLE) [...] * *Final Report* * * Normal 10-24-2019 [place] AP/LAT/LOJA DATE OF EXAM: Oct 24 2019 11:23AM Clinic WOX 5329 - XR FACIAL BONES 3V AP/LAT/LOJA / [id number] [place] PROCEDURE REASON: multiple diagnoses ([id number]) * * * * Physician Interpretation * [...] occult frac ture. IMPRESSION: No Acute Fracture. 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 Author Type: Auditing Specialist Type: Progress Notes Filed: 10/24/2019 11:24 AM [...] 24, 2019 11:10 AM PROGRESS HNO ID: [id number] Normal 10-24-2019 [facility] Author: Alicia Blount [place] ([id number]) Service: ? Author Type: Physician Type: Progress Notes Filed: 10/27/2019 5:40 PM Note Text: This note was created using NeoMedia Technologiesriter. Subjective Ana Ivory is a 79 year old female. Patient presents with: Recheck: 3 month follow up SUBJECTIVE: Ana Ivory is a 79 year old year old lady here today f or 3 month follow up appointment for review of medical conditions. Ongoing balance issues. noted DM neuropathy Nasal contusion noted--last Sunday--glass deposition tender. (at night) No epistaxis. No problems with breathing through nares at this time. Discussed [id number]--omykdpnc wanted her to not go out. Lung history reviewed plus age and DM. Needs cough med prn. No adverse effects. 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 difficile diarrhea 10/18/2011 - Cataract 04/17/2013 [facility], Dr. Dada Rodríguez. Mild cataract in L eye- no need for cataract surgery at this time. Continue to follow u p the cataract. 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 At thi s time, we anticipate that the patient will be discharged home once cli nically stable. Plan: - Discuss needs with patient. - Collaborate [facility] Case management to facilitate DC process - Will continue to evalu ate during the post op period. - Desat study 11/14/14: patient will need home oxygen (2 L with exertion only) - Discharge home today with home ca re for assistance with chest tube to [facility]. Return to [facility] on Sun11/18/14 for [...] by mouth twice daily. (Dr Don) - [employer] [facility] [place] [employer] (E08.40 , Z79.4) Diabetes [...] s by mouth once daily. - Insulin [place], Disposable, (EASY TOUCH) 31 gauge x 16 [...] and/or coordi nating care for the patient. Lpjo-ik-tqff time was at least 35 minutes. MD bony Rodríguez on 2019-10-24 CNPN Telephone (INTMWS) Normal 10-24-2019 [place] ANA Caro ([id number]) 1940 [facility] Date Time Provider Department ([id number]) 10/24/19 ALICIA BLOUNT INTMWS During your visit today, we recorded the following informati on about you: Breonna [place], RN, RN 10/24/2019 4:09 PM Signed Pt calls requesting results of xray from today. Clarence Berry APRN.FOOD AND BEVERAGE ASSOCIATE 10/24/2019 4:32 PM Signed No acute fracture [...] Diarrhea METFORMIN 05/10/2011 6 - Diarrhea NEOSPORIN (OUNFMYKH-UAVABBDRTW-GK*08/31/2008 2 - Rash Comments: blisters PROTONIX (PANTOPRAZOLE) [...] 2019-10-24 CNOV Office Visit (INTMWS) Normal 10-24-19 [place] [facility] ANA IVORY ([id number]) 1940 [facility] Date Time Provider Department ([id number]) 10/24/19 9:20 AM ALICIA BLOUNT During your visit today, we recorded the following informati on about you: Alicia Blount MD 10/27/2019 5:40 PM Signed This note was created using rankdesk. Subjective Ana Ivoyr is a 79 year old female. Patient presents with: Recheck: 3 month follow up SUBJECTIVE: Ana Ivory is a 79 year old year old lady here today for 3 month follow up appointment for review of medical conditions. Ongoing balance issues. noted DM neuropathy Nasal contusion noted--last Sunday--glass deposition tender. (at night) No epistaxis. No problems with breathing through nares at this time. Discussed [id number]--vzbzbsnj wanted her to not go out. Lung history reviewed plus age and DM. Needs cough med prn. No adverse effects. 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 difficile diarrhea 10/18/2011 - Cataract 04/17/2013 [facility], Dr. Dada johnson Mild cataract in L eye- no need for cataract surgery at this time. Continue to follow up the cat aract. 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 At thi s time, we anticipate [...] daily. (Dr Don) - Miscellaneous [facility] [place] (E08.40, Z79.4) Diabetes [...] les by mouth once daily. - Insulin [place], Disposable, (EASY CARROL ) 31 gauge x [...] counseling and/or coordinating care for the patient. Snxn-ql-cmxp time was at least 35 minutes. Alicia [...] Diarrhea METFORMIN 05/10/2011 6 - Diarrhea NEOSPORIN (JRKZWYNU-XAIFUHHZWK-NR*08/31/2008 2 - Rash Comments: blisters PROTONIX (PANTOPRAZOLE) [...] Hair thinning [L65.9] Order(s):mirabegron (MYRBETRIQ) 50 mg Bd82Lxbo 1 tablet by m out twice daily.Disp: Rfl: XR FACIAL BONES 3V AP/LAT/LOJA [[id number]] Order #: [id number] FUTURE codeine-guaiFENesin (VIRTUSSIN AC) 10-100 mg/5 [...] 11 URINALYSIS WITH MICROSCOPIC [SQUAWMIC] Order #: [id number] F UTURE ALBUMIN/CREAT RATIO RND UR [SQUACR] Order #: [id number] FUTU RE HGB A1C [FGPIN1G] Order #: [id number] FUTURE COMP METABOLIC PANEL [SQCMP] Order #: [id number] FUTURE CBC [SQCBC] Order #: [id number] FUTURE VITAMIN D 25 HYDROXY [SQVITD] Order #: [id number] FUTURE TSH BLD [SQTSH] Order #: [id number] FUTURE T4 FREE/FREE THYROX [SQFT4] Order #: [id number] FUTURE Prescriptions as of 10/24/2019 Sig: CODEINE [...] 25 Hydroxy 38.3 31.0-80.0 ng/mL Normal 0 [facility] (42588) Comment: Result Comment: Classificati on of 25 [place] Vitamin D status: Insufficiency/Moderate Defic iency: < or = 30 ng/mL Sufficiency/Optimal Levels: 31 to 80 ng/mL Toxicity: > 100 ng/mL Test performed by chemilumin escent immunoassay. Performed By: #### VITD, LIP B, HBA1C ####[place] [address] [phone] tsh on 2019-10-20 TSH Qn 4.160 0.270-4.200 uU/mL Normal 10-20-2019 [facility] (45386) Comment: Performed By: #### TSH ####[place] [phone] lipid panel, basic on 2019-10-20 Cholesterol [Mass/Vol] 167 <200 mg/dL Normal 020 [facility] (94715) Comment: Result Comment: <200 mg/dL, Desirable 200-239 mg/dL, Borderline hi gh >239 mg/dL, High Performed By: #### VITD, LIP B, HBA1C ####[place] [address] [phone] Cholesterol in HDL 54 >39 mg/dL Normal 10-20-2019 [facility] [Mass/Vol] (90732) Comment: Result Comment: 40-59 mg/dL, Acceptable >59 mg/dL, High: Negative ri sk factor for coronary heart disease <40 mg/dL, Low: Positive ris k factor for coronary heart disease Performed By: #### VITD, LIP B, HBA1C ####[place] [address] [phone] Cholesterol in LDL 90 <100 mg/dL Normal 10-20-2019 [facility] [Mass/Vol] [place] (45773) Comment: Result Comment: <100 mg/dL, Optimal 100-129 mg/dL, Near optimal/ above optimal 130-159 mg/dL, Borderline hi gh 160-189 mg/dL, High >189 mg/dL, Very high Secondary prevention optimal LDL Cholesterol levels are recommended to be < 70 mg/dL Performed By: #### VITD, LIP B, HBA1C ####[place] [id number] [place] [address] [phone] Fasting Time 10 hrs Normal 10-20-2019 [facility] (86284) Comment: Result Comment: Corrected on 10/19 AT 0916: Previously reported as 1 Performed By: #### VITD, LIP B, HBA1C ####[address] [place] [address] [phone] LDL:HDL Ratio 1.67 <2.54 Normal 10-20-2019 [facility] (63366) Comment: Result Comment: Reference: 1. National Cholesterol Educ ation Program ATP III Guideline At-A-Glance Quick Desk Reference: National Heart, Lung, and Blood [place]. National Institutes of Health. 2001: NIH Publication No. 01-3305. 2. An International Atherosc lerosis Society position paper: global recommendations for the management of dyslipidemia: executive summary, Atherosclerosis. 2014: 232(2):410-413. Performed By: #### VITD, LIP B, HBA1C ####[address] [place] [address] [phone] Non HDL Cholesterol 113 <130 mg/dL Normal 10-20-2019 [facility] (14931) Comment: Result Comment: <130 mg/dL, Optimal 130-159 mg/dL, Near optimal/ above optimal 160-189 mg/dL, Borderline hi gh 190-219 mg/dL, High >219 mg/dL, Very high Secondary prevention optimal non HDL Cholesterol levels are recommended to be < 100 mg/dL Performed By: #### VITD, LIP B, HBA1C ####[place] [address] [place] [address] [phone] TC:HDL Ratio 3.09 <5.10 Normal 10-20-2019 [facility] (14798) Comment: Performed By: #### VITD, LIP B, HBA1C ####[place] [address] [place] [address] Triglyceride [Mass/Vol] 115 <150 mg/dL Normal 2019 [facility] (55933) Comment: Result Comment: <150 mg/dL, Normal 150-199 mg/dL, Borderline hi gh 200-499 mg/dL, High >499 mg/dL, Very high Performed By: #### VITD, LIP B, HBA1C ####[place] [address] [address] [place] [address] VLDL Cholesterol 23 <30 mg/dL Normal 10-20-2019 [facility] (42451) Comment: Performed By: #### VITD, LIP B, HBA1C ####[place] [address] [address] [address] [phone] hemoglobin a1c on 2 HbA1c (Bld) [Mass fraction] 7.4 4.3-5.6 % High [facility] (59365) Comment: Result Comment: [place] Edilma betes Association guidelines indicate that patients with HgbA1c in the range 5.7-6.4% are at increased risk for development of diabetes, and intervention by lifestyle modification may be beneficial. HgbA1c greater o r equal to 6.5% is considered diagnostic of diabetes. Performed By: #### VITD, LIP B, HBA1C ####[place] [address] [address] [address] [phone] HbA1c (Bld) [Mass fraction] 166 mg/dL Normal [facility] (42495) Comment: Result Comment: eAG: (Estima amando average glucose) is a calculated value from HgbA1c and is community health program representative of the average blood glucose level in the last 2-3 month period. Performed By: #### VITD, LIP B, HBA1C ####[place] [address] [address] [address] [phone] comp metabolic panel on 2019-10-20 Albumin [Mass/Vol] 4.1 3.9-4.9 g/dL Normal 10-20-2019 [facility] (73356) ALP [Catalytic 82 34-123 U/L Normal 10-20-[address] [facility] activity/Vol] [facility] and (23660) ALT [Catalytic 7 7-38 U/L Normal 10-20-[address] [facility] activity/Vol] [facility] and (13875) Anion gap 10 9-18 mmol/L Normal 10-20-2019 [facility] [Moles/Vol] [facility] (52141) AST [Catalytic 11 13-35 U/L Low 10-20-[address] [facility] activity/Vol] [facility] and (02301) Bilirubin [Mass/Vol] 0.3 0.2-1.3 mg/dL Normal 0 [facility] (65770) Calcium [Mass/Vol] 8.6 8.5-10.2 mg/dL Normal 10-20-2019 [facility] (30154) Chloride [Moles/Vol] 104 97-105 mmol/L Normal 0 [facility] (61442) CO2 [Moles/Vol] 26 22-30 mmol/L Normal 10-20-2019 [facility] (79229) Creatinine 0.61 0.58-0.96 mg/dL Normal 10-20-2019 [facility] [Mass/Vol] [place] (19216) eGFR- Amer. >60 Normal 10-20-2019 [facility] (72951) GFR/1.73 sq M >60 mL/min/{1.73_m Normal 10-20-2019 [facility] predicted among 2} [facility] (20587) non-blacks MDRD (S/P/Bld) [Vol rate/Area] Comment: Result [...] Glucose [Mass/Vol] 163 74-99 mg/dL High 10-20-2019 [facility] (08404) Comment: Result Comment: The [place] Diabetes Association (ADA) provides guidance for cutoff [...] for diagnosis of diabetes. Reference: Standards of [facility] Care in Diabetes 2016, [place] Diabetes Association. Diabetes Care. 2016.39(Suppl 1). Potassium [Moles/Vol] 3.7 3.7-5.1 mmol/L Normal 10-20-19 [facility] (46287) Protein [Mass/Vol] 6.6 6.3-8.0 g/dL Normal 10-20-2019 [facility] (17269) Sodium [Moles/Vol] 140 136-144 mmol/L Normal 10-20-2019 [facility] (35681) Urea nitrogen [Mass/Vol] 14 7-21 mg/dL Normal 10-19 [facility] (82207) cnpn on 2019-10-20 CNPN Telephone (FAMPWS) Normal 10-20-2019 [place] [facility] ANA IVORY ([id number]) 1940 [facility] Date Time Provider Department (84408) 10/20/19 ALICIA BLOUNT FAMPWS During your visit today, we recorded the following informati on about you: Laura Marr BRASS POURER 10/20/2019 10:58 AM Signed Pt calls to report she had labs done today. Pt i s requesting to get TSH added to orders. Pt told laborer general she wanted t his done and was advised they could do this if ordered test. Pt reports she has been losing a lot of hair lately. Laura Marr BRASS POURER Riddhi Marie BRASS POURER 10/20/2019 2:59 PM Signed Lab notified. Test [...] Diarrhea METFORMIN 05/10/2011 6 - Diarrhea NEOSPORIN (MZANTUUG-UBZHHURZMN-[id number]*08/31/2008 2 - Rash Comments: blisters PROTONIX (PANTOPRAZOLE) 01/13/2010 6 - Diarrhea RELAFEN (NABUMETONE) 03/22/2006 8 - GI Upset 11 - Vomiting ACTOS (PIOGLITAZONE HCL) 12/03/2016 7 - Swelling Date Reviewed: 09/15/2019 Reviewed by: Isabella Billingsley) MANNY Kimble - Fully Assessed Reason for Visit: lab request [Other] Primary Visit Diagnosis:Hair loss [L65.9] Order(s):TSH BLD [SQTSH] Order #: [id number] FUTURE Prescriptions as of 10/20/2019 Sig: GABAPENTIN [...] 2019-10-20 Absolute nRBC <0.01 <0.01 Normal 10-20-2019 [facility] (65036) Erythrocyte distribution 13.2 11.5-15.0 % Normal 10-19 [facility] width (RBC) [Ratio] [place] (21856) Hematocrit (Bld) [Volume 38.3 36.0-46.0 % Normal 10-19 [facility] fraction] [place] (47494) Hemoglobin (Bld) 13.0 11.5-15.5 g/dL Normal 10-20-2019 [facility] [Mass/Vol] [place] (15526) MCH (RBC) [Entitic mass] 30.4 26.0-34.0 pG Normal 10-19 [facility] (49710) MCHC (RBC) [Mass/Vol] 33.9 30.5-36.0 g/dL Normal 10-20-19 20 [facility] (78288) MCV (RBC) [Entitic vol] 89.7 80.0-100.0 fL Normal 10-19 [facility] (11677) Platelet mean volume 9.4 9.0-12.7 fL Normal 0 [facility] (Bld) [Entitic vol] [place] (54027) Platelets (Bld) [#/Vol] 237 150-400 k/uL Normal 2019 [facility] (34768) RBC (Bld) [#/Vol] 4.27 3.90-5.20 m/uL Normal 10-20-2019 [facility] (42296) WBC (Bld) [#/Vol] 9.60 3.70-11.00 k/uL Normal 10-20-2019 [facility] (18694) albumin/creat ratio on 2019-10-20 Albumin Urine Random 1026.8 mg/L Normal 0 [facility] (04908) Comment: Performed By: #### UACR #### [facility] [place], [place] [phone] Albumin/Creat Ratio 668 <30 mg/g High 10-20-2019 [facility] (22914) Comment: Result Comment: Adult Male a nd [...] 3(1), 1-150. Performed By: #### UACR #### [facility] [place], [place] [phone] Creatinine,Urine,Ran 153.7 20-300 mg/dL Normal 0 [facility] (33184) Comment: Performed By: #### UACR #### [facility] [place], [place] [phone] obsolete on 2019-09 OBSOLETE Refill (INTMWS) Normal 09-23-2019 [facility] ANA IVORY ([id number]) 1940 [facility] Date Time Provider Department ([id number]) 09/23/19 ALICIA BLOUNT INTMWS During your visit [...] notify patient. Florence Ribeiro Pss Clarence Berry, MASOUD.FOOD AND BEVERAGE ASSOCIATE 09/23/2019 10:04 AM Signed rx sent Allergies [...] Diarrhea METFORMIN 05/10/2011 6 - Diarrhea NEOSPORIN (OPGUQGCR-HSYEPNAXDC-GE*08/31/2008 2 - Rash Comments: blisters PROTONIX (PANTOPRAZOLE) 01/13/2010 6 - Diarrhea RELAFEN (NABUMETONE) 03/22/2006 8 - GI Upset 11 - Vomiting ACTOS (PIOGLITAZONE HCL) 12/03/2016 7 - Swelling Date Reviewed: 09/15/2019 Reviewed by: Isabella (Rn) MANNY Kimble - Fully Assessed Reason for Visit: Refill Request [94] Visit Diagnosis: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, with long-term current use of insulin ([facility]) [E08.40, Z79.4] Order(s):gabapentin (NEURONTIN) 300 mg capsuleTake [...] surgical pathology on 2019-09-15 SURGICAL Normal 09-15-2019 [place] [facility]ENT [facility] [place] Specimen originated from [facility] (11327) Specimen #: [id number] Submitting Physician: RUBIN LORENZO MD FINAL DIAGNOSIS [...] in-situ hybridization tests have been determined by [facility] ([facility]) in a manner consistent with CLIA requirements. One or more of these tests have not been cleared or approved by the FDA. [facility] is regula amando under CLIA [...] in one cassette. Gross examination performed at [facility], [address] [place] [address] J 09/16/2019 1:31:26 AM Date of Report: 09/17/2019 Date of Procedure: 09/15/2019 Date of Receipt: 09/15/2019 Submitted by: RUBIN LORENZO MD Location: W010 Diagnostic interpretation performed at [place] [address]. CLIA Number: [id number] pt ed on 2019-09-15 PT ED HNO ID: [id number] Normal 09-15-2019 [facility] Author: Isabella Billingsley) MANNY Kimble [place] ([id number]) Service: ? Author Type: Registered Nurse Type: [...] Department: AMBULATORY SURGERY PT ED HNO ID: [id number] Normal 09-15-2019 [facility] Author: Isabella Kimble RN [place] ([id number]) Service: ? Author Type: Registered Nurse Type: [...] nursing prog on NURSING PROG HNO ID: [id number] Normal 09-15-19 [facility] Author: Isabella Kimble RN [place] ([id number]) Service: ? Author Type: Registered Nurse Type: Nursing Progress Note Filed: 09/15/2019 9:40 AM Note Text: Patient did not experience a fall prior to discharge. Patient did not experience a burn prior to discharge. Isabella Kimble RN NURSING PROG HNO ID: [id number] Normal 09-15-19 [facility] Author: Isabella Kimble RN [place] ([id number]) Service: ? Author Type: Registered Nurse Type: Nursing Progress Note Filed: 09/15/2019 9:16 AM Note Text: Patient sitting up in bed tolerating snack and drink without problems. Isabella Kimble RN NURSING PROG HNO ID: [id number] Normal 09-15-19 [facility] Author: Isabella Kimble RN [place] ([id number]) Service: ? Author Type: Registered Nurse Type: Nursing Progress Note Filed: 09/15/2019 8:56 AM Note Text: Patient arrived to PACU, on left side, abdomen soft. Patient resting comfortably. Isabella Kimble RN NURSING PROG HNO ID: [id number] Normal 09-15-19 [facility] Author: Quiana Mcgovern RN [place] ([id number]) Service: Nursing Author Type: Registered Nurse Type: Nursing Progress Note Filed: 09/15/2019 8:46 AM Note Text: Patient did not experience a fall within the Intraoperative area. Patient did not experience a burn within the Intraoperative area. Quiana Mcgovern RN NURSING PROG HNO ID: [id number] Normal 09-15-19 [facility] Author: Isabella Kimble RN [place] ([id number]) Service: ? Author Type: Registered Nurse Type: [...] history physical on 2019-09-15 HISTORY HNO ID: [id number] Normal 09-15-2019 [place] PHYSICAL Author: Rubin Tejeda Service: Gastroenterology [place] Author Type: Physician ([id number]) Type: HANDP Filed: 09/15/2019 8:21 AM Note [...] C. difficile diarrhea 10/18/2011 - Cataract 04/17/2013 [facility], Dr. Dada Rodríguez. Mild cataract in L eye- no need for cataract surgery at this time. Continue to follow u p the cataract. 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 At thi s time, we anticipate [...] who had a nodule identified on a vt reening scan in the past due to [...] daily. 09/14/2019 at Unknown time Yes Insulin [place], Disposable, (EASY TOUCH) 31 gauge x 3/16 [...] at Unknown time Yes [facility]iscellaneous [facility] [place] [facility] (E08.40, Z79.4) Diabetes mellitus [...] 2019-09 OBSOLETE Refill (INTMWS) Normal 09-13-2019 [facility] DIANELYSMARIELLAVINCENT Wheeler ([id number]) 1940 [facility] Time Provider Department ([id number]) 09/13/19 CLARENCE BERRY (LOLI) INTMWS During your [...] Diarrhea METFORMIN 05/10/2011 6 - Diarrhea NEOSPORIN (ERKRKASJ-UGSTOSSVBX-CB*08/31/2008 2 - Rash Comments: blisters PROTONIX (PANTOPRAZOLE) 01/13/2010 6 - Diarrhea RELAFEN (NABUMETONE) 03/22/2006 8 - GI Upset 11 - Vomiting ACTOS (PIOGLITAZONE HCL) 12/03/2016 7 - Swelling Date Reviewed: 08/08/2019 Reviewed by: Cintia Macias LPN - Fully Assessed Reason for Visit: Refill Request [94] Visit Diagnoses:Anxiety [F41.9] 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, with long-term current use of insulin ([facility]) [E08.40, Z79.4] Order(s):glimepiride (AMARYL) 2 mg tabletTake [...] 09/14/19 progress on 2019-07 PROGRESS HNO ID: [id number] Normal 08-08-2019 [facility] Author: Alicia Blount [place] ([id number]) Service: ? Author Type: Physician Type: Progress [...] Had irritated bladder. Still gets urgency. Dr. Dno adjusted meds. No longer hav ing to [...] C. difficile diarrhea 10/18/2011 - Cataract 04/17/2013 [facility], Dr. Dada Rodríguez. Mild cataract in L eye- no need for cataract surgery at this time. Continue to follow u p the cataract. 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 At thi s time, we anticipate [...] re for [facility]. Return to [facility] on Sun11/18/[address] [...] who had a nodule identified on a vt reening scan in the past due to [...] 180 days. Morning and bedtime - Insulin [place], Disposable, (EASY TOUCH) 31 gauge x 10/26 [...] E11.9 , Insulin: Yes - Blood-Glucose Meter (QiroTOUCH ULTRA2) monitoring kit 1 Eac h as [...] and/or coordi nating care for the patient. Ysvc-gg-kecw time was at least 40 minutes. Alicia Blount MD cnov on 2019-08-08 CNOV Office Visit (INTMWS) Normal 08-08-20 19 [place] [facility] ANA IVORY ([id number]) 1940 [facility] Date Time Provider Department ([id number]) 08/08/19 1:00 PM ALICIA BLOUNT INTMWS During [...] C. difficile diarrhea 10/18/2011 - Cataract 04/17/2013 [facility], Dr. Dada johnson Mild cataract in L eye- no need for cataract surgery at this time. Continue to follow up the cat aract. 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 At thi s time, we anticipate that the patient will be discharged home once c linically stable. Plan: - Discuss needs with patient. - Collaborate with Case management to facilitate DC process - Will continue to evaluate during the post op period. - Desat study 11/14/14: patient will need home oxygen (2 L with exertion only) - Discharge home today with [facility] for assistance with chest tube to [facility]. Return to [facility] on Sunday11/18/14 for [...] 180 days. Morning and bedtime - Insulin [place], Disposable, (EASY CARROL CH) 31 gauge x [...] counseling and/or coordinating care for the patient. Pzmh-pz-yvpb time was at least 40 minutes. MD [...] Diarrhea METFORMIN 05/10/2011 6 - Diarrhea NEOSPORIN (IAPQVCDB-EGEPMGYNYL-SI*08/31/2008 2 - Rash Comments: blisters PROTONIX (PANTOPRAZOLE) 01/13/2010 6 - Diarrhea RELAFEN (NABUMETONE) 03/22/2006 8 - GI Upset 11 - Vomiting ACTOS (PIOGLITAZONE HCL) 12/03/2016 7 - Swelling Date Reviewed: 08/08/2019 Reviewed by: Cintia Macias LPN - Fully Assessed Reason for Visit: Follow Up [171] Primary Visit Diagnosis: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, with long-term current use of insulin ([facility]) [E08.40, Z79.4] Other Visit Diagnoses:Pain, dental [K08.89] History of tooth extraction, unspecified edentulism class [K08.409] Closed fracture of tooth with routine healing, subsequent encounter [S02.5XXD] Hair thinning [L65.9] Comment:right side of head (same side that lays on) Essential hypertension [I10] Bladder irritability [N32.89] Nocturia [R35.1] Comment:improved with treatment per Yazmin Don. Continue present management. Order(s):HEMOGLOBIN A1C (POC) [[id number]] Order #: [id number] pec. #:[id number] Cephalexin 250 mg tabTake 1 tablet by [...] ALBUMIN/CREAT RATIO RND UR [SQUACR] Order #: [id number] FUTU RE [] HYDROcodone-acetaminophen (NORCO) 5-325 mg [...] twice daily. (Dr Don) MISCELLANEOUS MEDICAL SUPPLY [facility] 2 Ea* 0 08/08/2019 Class: Print RX [...] Mannie mancini [facility] ANA IVORY ([id number]) 1940 [facility] Date Time Provider Department ([id number]) 07/23/19 ALICIA BLOUNT INTMWS During your visit [...] printed as above. Please process accordingly . [facility] checked and validated. All prescrip [...] Diarrhea METFORMIN 05/10/2011 6 - Diarrhea NEOSPORIN (NTDVCFZA-URXDFYOIVW-NH*08/31/2008 2 - Rash Comments: blisters PROTONIX (PANTOPRAZOLE) [...] Mannie mancini [facility] ANA IVORY ([id number]) 1940 [facility] Date Time Provider Department ([id number]) 06/20/19 ALICIA BLOUNT INTErisWS During your visit [...] Diarrhea METFORMIN 05/10/2011 6 - Diarrhea NEOSPORIN (PZRYSSWH-PYBRCPQFUQ-WV*08/31/2008 2 - Rash Comments: blisters PROTONIX (PANTOPRAZOLE) [...] hosp on 2019-06-18 HOSP Patient:Ana Ivory [birth year]-18 [facility] MRN: [id number] ([id number]) Height:5' 2.5(1.588 m) Weight:No patient weight recorded [...] cap gabapentin (NEURONTIN) 300 mg capsule Insulin [place], Disposable, (EASY TOUCH) 31 gauge x 3/16 [...] [G43.909] Recurrent bronchospasm [J98.09] 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 ([facility]) [I63.211] 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] Mouth dryness [R68.2] Hyperlipidemia [E78.5] Functional dyspepsia [K30] 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 Chelsy Vogel RN Progress Notes ([facility]): Nargis Miller Pss 09/04/2019 4:29 [...] history physical on 2019-06-18 HISTORY HNO ID: [id number] Normal 06-18-2019 [place] PHYSICAL Author: Medhat Barrera [facility] Service: ? [place] Author Type: Nurse Practitioner ([id number]) Type: HANDP Filed: 06/18/2019 10:28 AM Note [...] reported above : Overactive bladder /interstitial cystitis. PURCHASING BUYER: Negative for abnormal vaginal bleeding, abnormal vagina [...] C. difficile diarrhea 10/18/2011 - Cataract 04/17/2013 [facility], Dr. Dada Rodríguez. Mild cataract in L eye- no need for cataract surgery at this time. Continue to follow u p the cataract. 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 At thi s time, we anticipate that the patient will be discharged home once cli nically stable. Plan: - Discuss needs with patient. - Collaborate [facility] Case management to facilitate DC process - Will continue to evalu ate during the post op period. - Desat study 11/14/14: patient will need home oxygen (2 L with exertion only) - Discharge home today with home ca re for [facility]. Return to OPD on Sun11/18/[address] [...] right eye - COLONOSCOP W/ OR W/O [facility] SPEC 10/31/2007 Colonoscopy - EGD W/O [facility] SPECIMEN W/BX 11/01/09 - EGD W/O [facility] SPECIMEN W/BX 11/23/11 - EGD W/O OR [...] and bedtime 180 capsule 1 - Insulin [place], Disposable, (EASY TOUCH) 31 gauge x 16 [...] with more than 50% of the total mban-uc-twti t dinorah of the visit in counseling / coordination of care. Medhat Barrera RN APRN.NEMESIO eason on 2019-06-18 CNOV Office Visit ([facility]) Normal 06-18-20 19 [place] [facility] ANA IVORY ([id number]) 1940 [facility] Time Provider Department ([id number]) 06/18/19 9:20 AM MEDHAT BARRERA During your visit today, we recorded the following informati on about you: Pulse Blood pressure Weight 76/minute 124/74 58.5 kg Medhat Barrera RN ONION TOPPER.MANAGER AGRICULTURAL 06/18/2019 10:28 AM Signed Ana Wheeler Dianelys [...] esophagus, biopsy (B) - Cardiac mucosa with stove refinisher alexander inflammation, negative for intestinal metaplasia. The [...] reported above : Overactive bladder /interstitial cystitis. PURCHASING BUYER: Negative for abnormal vaginal bleeding, abnormal vagina [...] C. difficile diarrhea 10/18/2011 - Cataract 04/17/2013 [facility], Dr. Dada johnson Mild cataract in L eye- no need for cataract surgery at this time. Continue to follow up the cat aract. 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 At thi s time, we anticipate that the patient will be discharged home once c linically stable. Plan: - Discuss needs with patient. - Collaborate with Case management to facilitate DC process - Will continue to evaluate during the post op period. - Desat study 11/14/14: patient will need home oxygen (2 L with exertion only) - Discharge home today with [facility] for assistance with chest tube to [...] and bedtime 180 capsule 1 - Insulin [place], Disposable, (EASY CARROL ) 31 gauge x [...] with more than 50% of the total tfxg-kj-cxfv time of the visit in counseling / coordination of care. Medhat Barrera RN ONION TOPPER.NEMESIO Barrera RN ONION TOPPER.NEMESIO 06/18/2019 9:34 AM Signed See if Nexium [...] in that regard. Referring Provider: ALICIA BLOUNT [[id number]] Allergies As of Date: 06/18/2019 Noted Allergy [...] Diarrhea METFORMIN 05/10/2011 6 - Diarrhea NEOSPORIN ([id number]*08/31/2008 2 - Rash Comments: blisters PROTONIX (PANTOPRAZOLE) [...] DAILY (6 AM).Disp: 90 capsuleRfl: 3 EGD [[id number]] Order #: [id number] FUTURE COLONOSCOPY SCRN NOT HIGH RISK [[id number]] Order #: [id number] FUTURE Prescriptions as of 06/18/2019 Sig: [...] Normal 05-24-2019 [facility] ANA IVORY ([id number]) 1940 [facility] Time Provider Department ([id number]) 05/24/19 ALICIA BLOUNT INTEirsWS During your visit today, we recorded the [...] Diarrhea METFORMIN 05/10/2011 6 - Diarrhea NEOSPORIN ([id number]-[id number]*08/31/2008 2 - Rash Comments: blisters PROTONIX (PANTOPRAZOLE) [...] on 2019-04 OBSOLETE Refill (INTMWS) Normal 05-08-2019 [facility] ANA IVORY ([id number]) 1940 [facility] Date Time Provider Department ([id number]) 05/08/19 ALICIA BLOUNT INTMWS During your visit today, we recorded the following informati on about you: Libertad Burdick [facility] 05/08/2019 4:11 PM Signed Patient has been [...] Diarrhea METFORMIN 05/10/2011 6 - Diarrhea NEOSPORIN ([id number]-[id number]*08/31/2008 2 - Rash Comments: blisters PROTONIX (PANTOPRAZOLE) 01/13/2010 6 - Diarrhea RELAFEN (NABUMETONE) 03/22/2006 8 - GI Upset 11 - Vomiting ACTOS (PIOGLITAZONE HCL) 12/03/2016 7 - Swelling Date Reviewed: 04/25/2019 Reviewed by: Yulisa Bills LPN - Fully Assessed Reason for Visit: Refill Request [94] Visit Diagnoses: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, with long-term current use of insulin ([facility]) [E08.40, Z79.4] Chronic cough [R05] Comment:2014 PFT [...] [id number] 4. Body weight 59.42 kg 04-26-2020 [facility] ([id number]) BP Diastolic 60 mm[Hg] 04-26-2020 [facility] ([id number]) BP Systolic 124 mm[Hg] 04-26-2020 [facility] ([id number]) Pulse (Heart Rate) 64 /min 04-26-2020 [facility] ([id number]) Respiratory Rate 16 /min 04-26-2020 [facility] ([id number]) Encounters Date Type Reason Provider Location 03-26-2020 - Documentation External [facility] 03-26-2020 procedure Provider 03-26-2020 External External External-[facility] Correspondence Provider 04-26-2020 - Patient encounter Acute [facility]traumatic [facility] Cat Scan 04-26-2020 procedure headache (I-Stat) Comment: Radiology CT 04-26-2020 - Patient encounter Acute posttraumatic Clarence (Audio Production Instructor) Int ernal 04-26-2020 procedure headache [facility] [place] Comment: Acute post-traumatic headach e, not intractable (Primary Dx); Facial pain; Blurry vision, left eye 04-13-2020 - Refill Secondary diabetes Alicia Blount [facility] 04-13-2020 mellitus Comment: Refill Request 04-27-2020 - 04-27-2020 Telephone encounter Clarence (Audio Production Instructor ) [facility] Comment: Results (CT) 04-26-2020 - 04-26-2020 Telephone encounter Fall Alicia [facility] Comment: Fall Procedures Procedure Name Date Provider Location Ct head/brain w/o 04-26-2020 Clarence (Audio Production Instructor) [facility] linic contrast material ([id number]) Colonoscopy 09-15-2019 - [facility] 09-15-2019 ([id number]) Plan of Treatment Plan Description Date Location COLONOSCOPY COLONOSCOPY 09-15-2029 - [facility] 09-15-2029 ([id number]) COLORECTAL CANCER COLORECTAL CANCER 09-15-2029 [facility] inic SCREENING,SEE MODIFIER SCREENING,SEE MODIFIER ([id number] [id number]) ANNUAL PCP TEAM CHRONIC ANNUAL PCP TEAM CHRONIC 04-26-2021 - [facility] DISEASE VISIT DISEASE VISIT 04-26-2021 ([id number]) BP CONTROLLED (<130/80) BP CONTROLLED (<130/80) 04-26-2021 - [facility] 04-26-2021 ([id number]) DILATED RETINAL EXAM DILATED RETINAL EXAM 04-01-2021 - [facility] 04-01-2021 ([id number]) ANNUAL PCP TEAM CHRONIC ANNUAL PCP TEAM CHRONIC 01-26-2021 - [facility] DISEASE VISIT DISEASE VISIT 01-26-2021 ([id number]) URINE ALBUMIN:CREATININE URINE ALBUMIN:CREATININE 01-21-2021 - [facility] RATIO RATIO 01-21-2021 ([id number]) DIABETIC FOOT EXAM DIABETIC FOOT EXAM 10-23-2020 - [facility] 10-23-2020 ([id number]) SHINGRIX VACCINE (2 of SHINGRIX VACCINE (2 of 10-23-2020 - [facility] 3) 3) 10-23-2020 ([id number]) Comment: Postponed from 03/04/2008 (D eclined at this time) LDL CHOLESTEROL LDL CHOLESTEROL 10-19-2020 - [facility] 10-19-2020 ([id number]) DTAP,TDAP,TD (2 - Td) DTAP,TDAP,TD (2 - Td) 08-08-2020 - [facility] 08-08-2020 ([id number]) Comment: Postponed from 03/22/2016 (D eclined at this time) HBA1C HBA1C 07-23-2020 - [facility] 07-23-2020 ([id number]) BP CONTROLLED BP CONTROLLED 04-25-2020 - [facility] (<130/80) (<130/80) 04-25-2020 ([id number]) INFLUENZA (#1) INFLUENZA (#1) 2020 [facility] ([id number]) DILATED RETINAL EXAM DILATED RETINAL EXAM 03-05-2020 [facility] ([id number]) ADVANCE DIRECTIVE ADVANCE DIRECTIVE 09-25-2013 - [facility] DISCUSSION DISCUSSION 09-25-2013 ([id number]) HEPATITIS C SCREENING HEPATITIS C SCREENING 1958 - [facility] 1958 ([id number]) no information [facility] ([id number]) Immunizations Vaccine Notes Status Date Location Influenza [...] - High Dose - Age seasonal, 04-25-2019 ([id number]) 65+ preservative-free Influenza Seasonal influenza, high dose (completed) 04-20-2018 - [facility] - High Dose - Age seasonal, 04-20-2018 ([id number]) 65+ preservative-free Influenza Seasonal influenza, high dose (completed) 05-17-2017 - [facility] - High Dose - Age seasonal, 05-17-2017 (34294) 65+ preservative-free Influenza Seasonal influenza, high dose (completed) 05-11-2016 - [facility] - High Dose - Age seasonal, 05-11-2016 (90603) 65+ preservative-free Influenza Seasonal influenza, high dose (completed) 05-12-2015 - [facility] - High Dose - Age seasonal, 05-12-2015 ([id number]) 65+ preservative-free Influenza Seasonal influenza, seasonal, (completed) 04-15-2020 - [facility] Inj Age 3+ injectable 04-15-2020 ([id number]) Influenza Seasonal influenza, seasonal, (completed) 05-13-2014 - [facility] Inj Age 3+ injectable 05-13-2014 ([id number]) Pneumococcal-13 Vac pneumococcal conjugate (completed) 09-07-2014 - [facility] Conjugate vaccine, 13 valent 09-07-2014 ([id number]) Pneumovax pneumococcal (completed) 09-05-2007 - [facility] polysaccharide vaccine, 09-05-2007 (441 95) 23 valent Tdap (Age 7+) tetanus toxoid, reduced (completed) 03-22-2006 - [facility] diphtheria toxoid, and 03-22-2006 (4419 5) acellular pertussis vaccine, adsorbed Zostavax zoster vaccine, live (completed) 01-08-2008 - [facility] 01-08-2008 ([id number]) Payers Payer Name Policy Number Location [employer]MA[employer] [id number] [facility] ([id number] 195) MEDICARE [id number] [facility] (44 195) The following information is from the original human readable contentNo Payer Records Found Social History Type Social History Date Location Description Tobacco smoking status Never smoker 01-08-2020 - [facility] NHIS 04-26-2020 (44476) Tobacco use and Never used 01-08-2020 [facility] exposure 04-26-2020 ([id number]) Alcohol intake Current drinker of 01-08-2020 [facility] alcohol (finding) 04-26-2020 (48140) Alcohol Comment 2-3 drinks/years 10-07-2014 - [facility] 10-07-2014 (94142) Sex Assigned At Not on file [facility] (60825) Exposure to SARS-CoV-2 Not sure [facility] (event) (82823) The following information is from the original [...] Overview: Ana Ivory is and lives in [place], [place]. At this time, we anticipate that [...] fo r assistance with chest tube to [facility]. Return to OPD on Sunday11/18/[address] removal . Esophageal reflux 10/08/2014 10/08/2014 Cataract 04/17/2013 09/15/2016 Overview: [facility], Dr. Dada johnson Mild cataract in L [...] Overview: Ana Ivory is and lives in [place], [place]. At this time, we anticipate that [...] fo r assistance with chest tube to [facility]. Return to OPD on Sunday11/18/[address] removal . Esophageal reflux 10/08/2014 10/08/2014 Cataract 04/17/2013 09/15/2016 Overview: [facility], Dr. Dada johnson Mild cataract [...] Overview: Ana Ivory is and lives in [place], [place]. At this time, we anticipate that [...] reflux 10/08/2014 10/08/2014 Cataract 04/17/2013 09/15/2016 Overview: [facility], Dr. Dada johnson Mild cataract in L [...] Overview: Ana Ivory is and lives in [place]. At this time, we anticipate that [...] fo r assistance with chest tube to [facility]. Return to OPD on Sunday11/18/[address] removal . Esophageal reflux 10/08/2014 10/08/2014 Cataract 04/17/2013 09/15/2016 Overview: [facility], Dr. 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 (Dr Don) [facility] (E08.40, Z79.4) Diabetes mellitus [...] C. difficile diarrhea 10/18/2011 ? Cataract 04/17/2013 [facility], Dr. Dada Rodríguez. Mild cataract in L eye- no need for cataract surgery at this time. Continue to follow up the cataract. ? 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 Displacement of lumbar intervertebral disc without myelopathy ? DISPOSITION AND FOLLOW-UP 11/11/2014 Ana Ivory is and lives in [place], [place]. At this time, we anticipate that the patient will be discharged home once clinically stable. Plan: - Discuss needs with patient. - Collaborate with Case management to facilitate DC process - Will continue to evaluate during the post op period. - Desat study 11/14/14: patient will need home oxygen (2 L with exertion only) - [facility] [...] should be addressed right away. Clarence Berry APRN.FOOD AND BEVERAGE ASSOCIATE documented in this encounterCarolynn Macias ([employer]), [facility] - 04/26/2020 4:07 PM EDT Radiology Service [...] IV DATA: Not applicable SIGNED BY: Jessica Acuan April 26, 2020 4:07 PM documented in [...] BE BASED ON THE PRIMARY CLINICAL RECORDS. [facility] provides no warranty or guarantee of the accuracy or completeness of information in this document. UNRECOGNIZED CONTENT PROVIDED BELOW FOR UNRECOGNIZED SECTION Source Comments In the event this information is protected by the Federal Confidentiality of Alcohol and Drug Abuse Patient Records regulations: The Federal rules restrict any use of the information to criminally investigate or prosecute any alcohol or drug abuse patient.[facility] the event this information is protected by the Federal Confidentiality of Alcohol and Drug Abuse Patient Records regulations: The Federal rules restrict any use of the information to criminally investigate or prosecute any alcohol or drug abuse patient.[facility] HealthIn the event this information is protected by the Federal Confidentiality of Alcohol and Drug Abuse Patient Records regulations: The Federal rules restrict any use of the information to criminally investigate or prosecute any alcohol or drug abuse patient.[facility] HealthIn the event this information is protected by the Federal Confidentiality of Alcohol and Drug Abuse Patient Records regulations: The Federal rules restrict any use of the information to criminally investigate or prosecute any alcohol or drug abuse patient.[facility] HealthIn the event this information is protected by the Federal Confidentiality of Alcohol and Drug Abuse Patient Records regulations: The Federal rules restrict any use of the information to criminally investigate or prosecute any alcohol or drug abuse patient.[facility] HealthIn the event this information is protected by the Federal Confidentiality of Alcohol and Drug Abuse Patient Records regulations: The Federal rules restrict any use of the information to criminally investigate or prosecute any alcohol or drug abuse patient.[facility] UNRECOGNIZED CONTENT PROVIDED BELOW FOR UNRECOGNIZED SECTION [...] in the L eye. 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 Harlan Zarate LPN documented [...] DATE CREATED AUTHOR AUTHOR'S ORGANIZATIO N 04/27/2020 [facility]
--- OUTSIDE RECORDS SUMMARY | 2020-05-25 15:39 | XMS RPT_ITS | CCD ---
:1940 External Reference #:[id number] Author Organization [facility] Care Team Providers Name Role Phone Rhonda Blount Primary Care Provider Allergies Reported Allergen Reaction(s) Severity Date of Onset Location Adhesive Tape Hives 08-31-2008 - [facility] ([id number]) Aspirin Contraindication-Medi [facility]-2018 [facility] (31257) Ciprofloxacin Other: See Comments 12-01-2013 - [facility] (99506) Codeine GI Upset 08-24-2005 - [facility] (25272) [facility] (40218) Iodine Vomiting [facility]-25-[facility] (41312) lansoprazole Diarrhea 11-01-2011 [facility] (07703) metFORMIN Diarrhea 05-10-2011 [facility] (59705) nabumetone GI Upset, Vomiting 03-22-2006 - [facility] (77461) Tvdwerdz-Lqpfbljftf-Boi Rash 08-31-2008 - [facility] ymyxin (29278) pantoprazole Diarrhea 01-13-2010 - [facility] (14343) pioglitazone Swelling Low 12-03-2016 - [facility] (02759) Sucralfate Other: See Comments 04-24-2012 - [facility] (89107) Medications Medication Name Sig Date Prescriber Location Aspirin aspirin, enteric coated [facility] Provider [facility] ([id number]) (ASPIRIN, ENTERIC COATED) 81 mg EC tablet Take 81 mg by mouth once daily. 0 Active Comment: Take 81 mg by mouth once danuta ly. atorvastatin atorvastatin (LIPITOR) 01-08-2020 Alicia D [facility] 20 mg tablet Take 1 (83956) tablet by mouth once daily. 90 tablet 3 01/08/2020 Active Comment: Take 1 tablet by mouth once daily. Biotin Biotin 2,500 mcg cap Nurse 01-27-2020 Alicia Bateman [facility] (61274) reports patient taking 1500 mcg dose once daily (cannot find 1500mcg dose on menu) 0 01/27/2020 Active Comment: Nurse reports patient taking 1500 mcg dose once daily (cannot find 1500mcg dose on menu) Blood-Glucose Meter Blood-Glucose Meter 05-23-2017 Alicia Rhonda [facility] (ONETOUCH ULTRA2) (ONETOUCH ULTRA2) (4419 5) monitoring kit monitoring kit 1 Each as needed. One Touch Meter Kit Diagnosis: Type 2 DM - Controlled E11.9 1 Each 0 05/23/2017 Active Blood-Glucose Meter (ONETOUCH 05-23-2017 Alicia Rhonda [facility] (52664) ULTRA2) monitoring kit 1 Each as needed. One Touch Meter Kit Diagnosis: Type 2 DM - Controlled E11.9 1 Each 0 05/23/2017 Active Blood-Glucose Meter (ONETOUCH 05-23-2017 Alicia Rhonda [facility] (94136) ULTRA2) monitoring kit 1 Each as needed. One Touch Meter Kit Diagnosis: Type 2 DM - Controlled E11.9 1 Each 0 05/23/2017 Active Blood-Glucose Meter (ONETOUCH 05-23-2017 Alicia Rhonda [facility] (51926) ULTRA2) monitoring kit 1 Each as needed. One Touch Meter Kit Diagnosis: Type 2 DM - Controlled E11.9 1 Each 0 05/23/2017 Active Blood-Glucose Meter (ONETOUCH 05-23-[address] [facility] (09368) ULTRA2) monitoring kit 1 Each as needed. One Touch Meter Kit Diagnosis: Type 2 DM - Controlled E11.9 1 Each 0 05/23/2017 Active Blood-Glucose Meter (ONETOUCH 05-23-[address] [facility] (21578) ULTRA2) monitoring kit 1 Each as needed. One Touch Meter Kit Diagnosis: Type 2 DM - Controlled E11.9 1 Each 0 05/23/2017 Active Comment: 1 Each as needed. One Touch Meter Kit Diagnosis: Type 2 DM - Controlled E11.9 Capsaicin capsaicin (ZOSTRIX) 01-27-2020 [facility] ([facility]) [facility] 0.025 % cream Apply 3 (40855 ) application to affected area three times daily. January 27, 2020 states not using 100 g 0 01/27/2020 Active Comment: Apply 3 application to affec amando area three times daily. January 27, 2020 states not using Cephalexin Cephalexin 250 mg tab 08-08-2019 Alicia Rhonda Blount [facility] Take 1 tablet by mouth (4419 5) daily at bedtime. (Dr Don) 0 08/08/2019 Active Comment: Take 1 tablet by mouth daily at bedtime. (Dr Don) Cholecalciferol Cholecalciferol, Vitamin 04-25-2019 [facility] ([facility] D3, 1,000 unit cap Take 2 Berry (4 4195) capsules by mouth once daily. 0 04/25/2019 Active Comment: Take 2 capsules by mouth onc e daily. COMPOUNDED COMPOUNDED 01-03-2018 Alicia Rhonda Blount [facility] in PRESCRIPTION PRESCRIPTION Custom (63637) orthotics (E08.40, Z79.4) 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, with long-term current use of insulin 2 Each 0 01/03/2018 Active COMPOUNDED PRESCRIPTION Custom 01-03-2018 [facility] (86991) orthotics (E08.40, Z79.4) 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, with long-term current use of insulin 2 Each 0 01/03/2018 Active COMPOUNDED PRESCRIPTION Custom 01-03-2018 Alicia D Prashanthampas [facility] (80235) orthotics (E08.40, Z79.4) 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, with long-term current use of insulin 2 Each 0 01/03/2018 Active COMPOUNDED PRESCRIPTION Custom 01-03-2018 Alicia D [place] C [facility] (49649) orthotics (E08.40, Z79.4) 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, with long-term current use of insulin 2 Each 0 01/03/2018 Active COMPOUNDED PRESCRIPTION Custom 01-03-2018 [facility] (30768[facility] orthotics (E08.40, Z79.4) 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, with long-term current use of insulin 2 Each 0 01/03/2018 Active COMPOUNDED PRESCRIPTION Custom 01-03-2018 Alicia Rhonda [facility] (85481) orthotics (E08.40, Z79.4) 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, with long-term current use of insulin 2 Each 0 01/03/2018 Active Comment: Custom orthotics (E08.40, Z7 9.4) Diabetes 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 condition with diabetic neur opathy, with long-term current use of insulin Cranberry-Vitamin Cranberry-Vitamin 01-27-2020 [employer] David balbuena C-Vitamin E (CRANBERRY C-Vitamin E ([facility] (56629) PLUS VITAMIN C) 140-100 PLUS VITAMIN C) 140-100 mg cap mg cap Patient takes Cranberry with Vitamin C capsule that contains 15,000 mg Cranberry and 100mg Vitamin C 0 01/27/2020 Active Cranberry-Vitamin C-Vitamin E 01-27-2020 [facility] (20712) (CRANBERRY PLUS VITAMIN C) 140-100 mg cap Patient takes Cranberry with Vitamin C capsule that contains 15,000 mg Cranberry and 100mg Vitamin C 0 01/27/2020 Active Cranberry-Vitamin C-Vitamin E 01-27-2020 [facility] (59288) (CRANBERRY PLUS VITAMIN C) 140-100 mg cap Patient takes Cranberry with Vitamin C capsule that contains 15,000 mg Cranberry and 100mg Vitamin C 0 01/27/2020 Active Cranberry-Vitamin C-Vitamin E 01-27-2020 [facility] (06231) (CRANBERRY PLUS VITAMIN C) 140-100 mg cap Patient takes Cranberry with Vitamin C capsule that contains 15,000 mg Cranberry and 100mg Vitamin C 0 01/27/2020 Active Cranberry-Vitamin C-Vitamin E 01-27-2020 [facility] (71135) (CRANBERRY PLUS VITAMIN C) 140-100 mg cap Patient takes Cranberry with Vitamin C capsule that contains 15,000 mg Cranberry and 100mg Vitamin C 0 01/27/2020 Active Cranberry-Vitamin C-Vitamin E 01-27-2020 Alicia Blount [facility] (30399) (CRANBERRY PLUS VITAMIN C) 140-100 mg cap Patient takes Cranberry with Vitamin C capsule that contains 15,000 mg Cranberry and 100mg Vitamin C 0 01/27/2020 Active Comment: Patient takes Cranberry with Vitamin C capsule that contains 15,000 mg Cranberry and 100mg Vitamin C Esomeprazole esomeprazole (NEXIUM) 40 mg 06-18-2019 [facility] capsule Indications: (25125) 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 90 capsule 3 06/18/2019 Active Comment: Take 1 capsule by mouth PAOLA Y (6 AM). Estrogens, Conjugated PREMARIN vaginal 06-25-2019 [facility] Provider [facility] (SHELTER) cream APPLY 0.5 GRAMS (19770 ) VAGINALLY BEFORE BED EVERY NIGHT FOR 14 DAYS THEN USE TWICE A WEEK FOR 3 MONTHS 0 06/25/2019 Active Comment: APPLY 0.5 GRAMS VAGINALLY BE FORE BED EVERY NIGHT FOR 14 DAYS THEN USE TWICE A WEEK FOR 3 MONTHS gabapentin gabapentin 09-23-2019 - Alicia Ellis [facility] inic (NEURONTIN) 300 mg 10-11-2020 (06281) capsule Indications: 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, with long-term current use of insulin ([facility]) Take 1 capsule by mouth twice daily for 180 days. Morning and bedtime 180 capsule 1 04/14/2020 10/11/2020 Active Comment: Take 1 capsule by mouth twic e daily for 180 days. Morning and bedtime glimepiride glimepiride (AMARYL) 2 09-14-2019 Clarence (Belt Press Operator) [facility] mg tablet Indications: (4419 5) 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, with long-term current use of insulin ([facility]) Take 1 tablet by mouth twice daily with meals. 180 tablet 1 09/14/2019 Active Comment: Take 1 tablet by mouth twice daily with meals. Insulin Glargine insulin glargine 02-18-2020 Alicia Blount [facility] (LANTUS SOLOSTAR U-100 (4419 5) INSULIN) 100 unit/mL (3 mL) Inject 24 Units subcutaneously daily at bedtime. 15 mL 3 02/18/2020 Active Comment: Inject 24 Units subcutaneous ly daily at bedtime. Insulin, Aspart, insulin aspart U-100 10-24-2019 - Alicia Ellis [facility] Human (NOVOLOG FLEXPEN 10-23-2020 (07555) U-100 INSULIN) 100 unit/mL (3 mL) Inject 8 Units subcutaneously twice daily with meals. Adjust as directed 5 Pen 11 10/24/2019 10/23/2020 Active Comment: Inject 8 Units subcutaneousl y twice daily with meals. Adjust as directed Ketoconazole ketoconazole (NIZORAL) 2 01-27-2020 Alicia Rhonda [facility] % cream Apply 1 (82775) application to affected area twice daily. Continue for 1 week after rash resolves. 30 g 0 01/27/2020 Active Comment: Apply 1 application to affec amando area twice daily. Continue for 1 week after rash resolves. LORazepam LORazepam (ATIVAN) 1 01-06-2020 - Alicia Ellis [facility] mg tablet Indications: 07-13-2020 (4419 5) Anxiety TAKE 1/2 TO 1 TABLET BY MOUTH EVERY DAY NEEDED FOR FOR ANXIETY 30 tablet 2 04/14/2020 07/13/2020 Active Comment: TAKE 1/2 TO 1 TABLET BY MOUT H EVERY DAY NEEDED FOR FOR ANXIETY Metoprolol metoprolol succinate ER 06-20-2019 Alicia Ellis [facility] (TOPROL XL) 200 mg 24 hr (44 195) tablet Indications: Essential hypertension Take 1 tablet by mouth once daily. 90 tablet 3 06/20/2019 Active Comment: Take 1 tablet by mouth once daily. mirabegron mirabegron (MYRBETRIQ) 50 10-24-2019 Alicia Ellis [facility] mg Tb24 Take 1 tablet by (44 195) mouth twice daily. 0 10/24/2019 Active Comment: Take 1 tablet by mouth twice daily. Miscellaneous Medical Miscellaneous Medical 08-08-2019 Alicia Ellis [facility] (49091) Indications: 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, with long-term current use of insulin (HCC) Custom Orthotics (E08.40, Z79.4) 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, with long-term current use of insulin 2 Each 0 08/08/2019 Active [facility] 08-08-2019 [facility] Rhonda [facility] (34939) Indications: 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, with long-term current use of insulin (HCC) Custom Orthotics (E08.40, Z79.4) 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, with long-term current use of insulin 2 Each 0 08/08/2019 Active [facility] 08-08-2019 [facility] (83537) Indications: 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, with long-term current use of insulin (HCC) Custom Orthotics (E08.40, Z79.4) 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, with long-term current use of insulin 2 Each 0 08/08/2019 Active [facility] 08-08-2019 [facility] (22448) Indications: 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, with long-term current use of insulin (HCC) Custom Orthotics (E08.40, Z79.4) 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, with long-term current use of insulin 2 Each 0 08/08/2019 Active [facility] 08-08-2019 [facility] (04417) Indications: 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, with long-term current use of insulin (HCC) Custom Orthotics (E08.40, Z79.4) 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, with long-term current use of insulin 2 Each 0 08/08/2019 Active [facility] 08-08-2019 [facility] (65612) Indications: Diabetes 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 condition [...] of insulin multivitamins(DAILY multivitamins(DAILY 12-08-2009 Randi Kessler [facility] MULTIVITAMIN TAB) MULTIVITAMIN TAB) Take (Billing And Accounting Staff Assistant) [facility] (24316) one(1) tablet daily. 0 12/08/2009 Active multivitamins(DAILY MULTIVITAMIN 12-08-2009 Randi Jefferson (Billing And Accounting Staff Assistant) [facility] TAB) Take one(1) tablet daily. 0 [place] (84150) 12/08/2009 Active multivitamins(DAILY MULTIVITAMIN 12-08-2009 Randi Jefferson (Billing And Accounting Staff Assistant) [facility] TAB) Take one(1) tablet daily. 0 [place] (72642) 12/08/2009 Active multivitamins(DAILY MULTIVITAMIN 12-08-2009 Randi Jefferson (Billing And Accounting Staff Assistant) [facility] TAB) Take one(1) tablet daily. 0 [place] (03734) 12/08/2009 Active multivitamins(DAILY MULTIVITAMIN 12-08-2009 Randi Jefferson (Billing And Accounting Staff Assistant) [facility] TAB) Take one(1) tablet daily. 0 [place] (69269) 12/08/2009 Active multivitamins(DAILY MULTIVITAMIN 12-08-2009 Randi Jefferson (Billing And Accounting Staff Assistant) [facility] TAB) Take one(1) tablet daily. 0 [place] (58804) 12/08/2009 Active Comment: Take one(1) tablet daily. oxybutynin oxybutynin ER (DITROPAN 08-08-2019 Alicia Blount [facility] XL) 10 mg 24 hr tablet (4419 5) Take 1 tablet by mouth twice daily. (Dr Don) 0 08/08/2019 Active Comment: Take 1 tablet by mouth twice daily. (Dr Don) Sertraline sertraline (ZOLOFT) 50 09-14-2019 Clarence (Belt Press Operator) [facility] mg tablet Take 1 tablet (441 95) by mouth once daily. 90 tablet 3 09/14/2019 Active Comment: Take 1 tablet by mouth once daily. SUMAtriptan SUMAtriptan (IMITREX) 50 11-01-2018 [facility] Take 1 tablet (441 95) by mouth. at onset of headache. May take another tablet as needed one hour later. 10 tablet 5 11/01/2018 Active Comment: Take 1 tablet by mouth. at o nset of headache. May take another tablet as needed one hour later. vit C/E/Zn/coppr/lutein/zeaxan vit C/E/Zn/coppr/lutein/zeaxan [facility] (PRESERVISION AREDS-2 ORAL) [facility] Provider Clinic Take by mouth twice daily. 0 (08864) Active vit C/E/Zn/coppr/lutein/zeaxan ([facility] Provider [facility] (13189) AREDS-2 ORAL) Take by mouth twice daily. 0 Active vit C/E/Zn/coppr/lutein/zeaxan ([facility] (84014) AREDS-2 ORAL) Take by mouth twice daily. 0 Active vit C/E/Zn/coppr/lutein/zeaxan ([facility] (37362) AREDS-2 ORAL) Take by mouth twice daily. 0 Active vit C/E/Zn/coppr/lutein/zeaxan ([facility] Provider [facility] (75730) AREDS-2 ORAL) Take by mouth twice daily. 0 Active vit C/E/Zn/coppr/lutein/zeaxan ([facility] (23561) AREDS-2 ORAL) Take by mouth twice daily. 0 Active Comment: Take by mouth twice daily. 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 (76341) Diabetes mellitus without Secondary diabetes Active 0 - [facility] complication mellitus (83395) Disorders of lipid Hyperlipidemia Active 11-06-2016 - [facility] metabolism (01262) Esophageal disorders Gastro-esophageal Active 11-23-2011 - [facility] reflux disease with (51951) esophagitis Essential hypertension Hypertensive disorder Active 3 - [facility] (92705) Genitourinary symptoms Urge incontinence of Active 12-16-2013 - [facility] and ill-defined urine (51340) conditions Headache; including Migraine Active 11-11-2014 - [facility] migraine (31081) Nutritional deficiencies Vitamin D deficiency Active 03-10-20 - [facility] (28929) Osteoarthritis Degenerative joint Active 03-06-2006 - [facility] disease involving (40852) multiple joints Osteoporosis Osteoporosis Active [facility]-19-2006 [facility] (59300[facility] Other gastrointestinal Irritable bowel Active 02-01-2012 - matias [facility] disorders syndrome (93112) Other hereditary and Restless legs Active 06-19-2006 - [facility] degenerative nervous (05228) system conditions Other lower respiratory Chronic cough Active 01-27-2020 - [facility] disease (09616) Other nervous system 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 - [facility] disorders (00273) Other upper respiratory Allergic rhinitis Active 03-06-2006 - [facility] disease (60283) Spondylosis; Displacement of lumbar Active [facility] intervertebral disc intervertebral disc ( 28339) disorders; other back without myelopathy problems Past or Other Problems Category Problem Name Status Date Location Diseases of mouth; Xerostomia Completed 11-06-2016 - [facility] excluding dental (15679) Disorders of teeth Temporomandibular joint Completed 11-22-2018 - [facility] and jaw disorder (92633) Other disorders of Nonulcer dyspepsia Completed 08-20-2017 - [facility] stomach and duodenum (63694) Other upper Bronchospasm Completed 01-21-2015 - [facility] respiratory disease (22744) Residual codes; Insomnia Completed 04-30-2007 - [facility] inic unclassified (81555) Results Result Name Value Range Unit Interpretation Flag Date Location [facility] on 2020-04-27 [facility] Telephone (INTMWS) Normal 04-27-2020 [facility] ANA IVORY ([id number]) 1940 [facility] Date Time Provider Department (96976) 04/27/20 CLARENCE BERRY (PAYMENT ANALYST) INTMWS During your visit today, we recorded the following informati on about you: Clarence Berry APRN.PAYMENT ANALYST 04/27/2020 8:03 AM Signed Please let her [...] Diarrhea METFORMIN 05/10/2011 6 - Diarrhea NEOSPORIN ([id number]*08/31/2008 2 - Rash Comments: blisters PROTONIX (PANTOPRAZOLE) [...] 04/27/20 progress on 2020-04 PROGRESS HNO ID: [id number] Normal 04-26-2020 [facility] Author: Jessica Pete (Tech) [place] ([id number]) Service: ? Author Type: Clinic Nurse Type: Progress Notes Filed: 04/26/2020 4:08 PM [...] 26, 2020 4:07 PM PROGRESS HNO ID: [id number] Normal 04-26-2020 [facility] Author: Clarence Berry (Cns) [place] ([id number]) Service: ? Author Type: Nurse Specialist Type: [...] left side of face from jaw to methodist, no step off or deformity appreciated on [...] EVERY DAY NEEDED FOR FOR ANXIETY Insulin [place], Disposable, (EASY TOUCH) 31 gauge x 3/16 [...] tablet by mouth twice daily. [facility] Don[facility] Custom Orthotics (E08.40, Z79.4) Diabetes mellitus due [...] C. difficile diarrhea 10/18/2011 - Cataract 04/17/2013 [facility], Dr. Dada Rodríguez. Mild cataract in L eye- no need for cataract surgery at this time. Continue to follow u p the cataract. 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 At thi s time, we anticipate that the patient will be discharged home once cli nically stable. Plan: - Discuss needs with patient. - Collaborate [facility] Case management to facilitate DC process - Will continue to evalu ate during the post op period. - Desat study 11/14/14: patient will need home oxygen (2 L with exertion only) - Discharge home today with home ca re for assistance with [facility]. Return to [facility] on Sun11/18/14 [...] be addressed right away . Clarence Berry APRN.PAYMENT ANALYST ct brain wo ivcon o n 2020-04-26 CT BRAIN WO * * *Final Report* * * Normal 04-26 [facility] IVCON DATE OF EXAM: Apr 26 2020 4:04PM [place] ([id number]) [facility] 0504 - CT BRAIN WO IVCON [...] and im aged soft tissues are unremarkable. Residential Solar Consultant (topogram) images: No additional findings. IMPRESSION: No acute intracranial abnormality. Moderate burden of presumed chronic microvascular ischemic c hanges and remote left lacunar infarct in the left lentiform nucleus. Lens Edger: ABHILASH Transcribe Date/Time: Apr 26 2020 4:08P Dictated by : JOSÉ MIGUEL JOSHI MD This examination was interpreted and the report reviewed and electronically signed by: JOSÉ MIGUEL JOSHI MD on Apr 26 2020 4:12PM EST [id number] [facility]) Normal 04-26-2020 [place] [facility] ANA IVORY ([id number]) 1940 [facility] Date Time Provider Department ([id number]) 04/26/20 [facility] visit today, we recorded [...] in the L eye. Appt scheduled with NATURAL RESOURCE OFFICER for today. Harlan Berry APRN.PAYMENT ANALYST 04/26/2020 12:16 PM Signed I think she [...] Diarrhea METFORMIN 05/10/2011 6 - Diarrhea NEOSPORIN ([id number]*08/31/2008 2 - Rash Comments: blisters PROTONIX (PANTOPRAZOLE) [...] 2020-04-26 [facility] Office Visit (INTMWS) Normal 04-26-20 [place] [facility] ANA IVORY ([id number]) 1940 [facility] Date Time Provider Department ([id number]) 04/26/20 2:20 PM CLARENCE BERRY (LOLI) INTMWS [...] side of face from jaw t o methodist, no step off or deformity appreciated on [...] EVERY DAY NEEDED FOR FOR ANXIETY Insulin [place], Disposable, (EASY TOUCH) 31 gauge x 3/16 [...] et by mouth twice daily. (Dr Don) [facility] Orthotics (E08.40 , Z79.4) Diabetes mellitus [...] C. difficile diarrhea 10/18/2011 - Cataract 04/17/2013 [facility], Dr. Dada johnson Mild cataract in L eye- no need for cataract surgery at this time. Continue to follow up the cat aract. 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 At thi s time, we anticipate that the patient will be discharged home once c linically stable. Plan: - Discuss needs with patient. - Collaborate with Case management to facilitate DC process - Will continue to evaluate during the post op period. - Desat study 11/14/14: patient will need home oxygen (2 L with exertion only) - Discharge home [facility] with [facility] for assistance with chest tube to [...] should be addressed right away. Clarence Berry APRN.PAYMENT ANALYST Clarence Berry APRN.CNS 04/26/2020 3:06 PM Addendum [...] Diarrhea METFORMIN 05/10/2011 6 - Diarrhea NEOSPORIN ([id number]-[id number]-[id number]*08/31/2008 2 - Rash Comments: blisters PROTONIX (PANTOPRAZOLE) [...] left eye [H53.8] Order(s):CT BRAIN WO IVCON [[id number]] Order #: [id number] FUT URE Prescriptions as of 04/26/2020 Sig: [...] on 04/26/20 No panel information on 2020-04-26 [facility] ([id number]) obsolete on 2020-04 OBSOLETE Refill (MIQ) Normal 04-13-2020 [place] [facility] ANA IVORY ([id number]) 1940 F [place] Date Time Provider Department ([id number]) 04/13/20 ALICIA BLOUNT MIQ During your visit [...] Diarrhea METFORMIN 05/10/2011 6 - Diarrhea NEOSPORIN (CJWDZOFI-LPMDQUVKPU-[id number]*08/31/2008 2 - Rash Comments: blisters PROTONIX (PANTOPRAZOLE) [...] Refill (INTMWS) Normal 04-02-2020 [facility] ANA IVORY ([id number]) 1940 [facility] Date Time Provider Department ([id number]) 04/02/20 ALICIA BLOUNT INTMWS During your visit today, we recorded the following informati on about you: Libertad Burdick [facility] 04/02/2020 9:33 AM Signed Patient has been [...] Diarrhea METFORMIN 05/10/2011 6 - Diarrhea NEOSPORIN (XRPSCGYV-YPZJYVTAYX-AS*08/31/2008 2 - Rash Comments: blisters PROTONIX (PANTOPRAZOLE) 01/13/2010 6 - Diarrhea RELAFEN (NABUMETONE) 03/22/2006 8 - GI Upset 11 - Vomiting ACTOS (PIOGLITAZONE HCL) 12/03/2016 7 - Swelling Date Reviewed: 01/27/2020 Reviewed by: Cintia Macias LPN - Fully Assessed Reason for Visit: Refill Request [94] Order(s):Insulin [place], Disposable, (EASY TOUCH) 31 gauge x 3/16Use [...] Discontinued During This Encounter Prescriptions - Insulin [place], Disposabl e, (EASY TOUCH) 31 gauge x 16 ndle (Discontinued) Use 1 needle for each dose. 2x daily Encounter Status:Closed by CL[facility]ENCE LEVINE [facility]) Normal 04-02-2020 [place] [facility] ANA IVORY ([id number]) 1940 [facility] Date Time Provider Department ([id number]) 04/02/20 ALICIA BLOUNT INTWS During your visit today, we recorded the following informati on about you: Libertad Burdick [facility] 04/02/2020 9:36 AM Signed Ana Ivory is calling Alicia daniels MD today to request the following medication, not on her current list, please send to Ana Paula Whaley: codeine-guaiFENesin (VIRTUSSIN AC) 10-10 0 mg/5 mL syrup. Please notify patient once completed. Patient has been identified by name and birthdate. Duration of symptoms: N/A Person calling: self Call patient at: at home [phone] (home) [phone] (cell) Was an appointment scheduled: No Closing statement: Results or non-symptom based questions: Thank you for calling [facility], your call will be returned within the next business day. Libertad Burdick Pss Clarence Berry APRN.PAYMENT ANALYST 04/06/2020 7:29 AM Signed Rx sent. PDMP website checked and validated. All prescrip tions have been APPROPRIATELY filled. No suspicious activity was identified. 04/06/2020 by Clarence Berry APRN.PAYMENT ANALYST Allergies As of Date: 04/02/2020 Noted Allergy [...] Diarrhea METFORMIN 05/10/2011 6 - Diarrhea NEOSPORIN (NBOYZAKY-ZZDVRPTOUD-TW*08/31/2008 2 - Rash Comments: blisters PROTONIX (PANTOPRAZOLE) [...] on 2020-03-13 CNPN Telephone (INTMWS) Normal 03-13-2020 [place] [facility] ANA IVORY ([id number]) 1940 [facility] Date Time Provider Department ([id number]) 03/13/20 ALICIA BLOUNT INTMWS During your visit today, we recorded the following informati on about you: Simran Russell Pss 03/13/2020 10:55 AM Signed Patient calling in needing her PT order faxed to [facility]. Simran Russell Pss Isabela Mendoza Cma [...] Diarrhea METFORMIN 05/10/2011 6 - Diarrhea NEOSPORIN ([id number]-VMFZMPYYRZ-NR*08/31/2008 2 - Rash Comments: blisters PROTONIX (PANTOPRAZOLE) [...] OBSOLETE Refill (INTMWS) Normal 02-27-2020 Mannie mancini [facility] ANA IVORY ([id number]) 1940 [facility] Date Time Provider Department ([id number]) 02/27/20 ALICIA BLOUNT INTVENKAT During your visit [...] Diarrhea METFORMIN 05/10/2011 6 - Diarrhea NEOSPORIN (IJDDGKML-FUMUJBJAAZ-BU*08/31/2008 2 - Rash Comments: blisters PROTONIX (PANTOPRAZOLE) [...] Status:Closed by RIDDHI MARIE LPN on 02/27/20 [facility] 2020-02-19 [facility] Telephone (INTWS) Normal 02-19-2020 [place] [facility] ANA IVORY ([id number]) 1940 [facility] Date Time Provider Department ([id number]) 02/19/20 ALICIA BLOUNT INTWS During your visit today, we recorded the following informati on about you: Mansi Preston LPN 02/19/2020 2:23 PM Signed Patient Robb calling asking for a handicap plac [place] rx, asking for one please. He said has never had one for hi s . 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 I explained what he would need t o do with the rx. Please advise Clarence Berry APRN.LOLI 02/20/2020 9:40 AM Signed See below, filed, please process Danielle Guido MA 02/20/2020 10:47 AM Signed Called and LM on to return call to [facility] and ask to speak with [facility] triage nurse. Please update that Rx [...] Diarrhea METFORMIN 05/10/2011 6 - Diarrhea NEOSPORIN (ELHFBFYJ-ZYAHMFMJRS-QS*08/31/2008 2 - Rash Comments: blisters PROTONIX (PANTOPRAZOLE) [...] OBSOLETE Refill (INTMWS) Normal 02-18-2020 Mannie mancini [facility] ANA IVORY ([id number]) 1940 [facility] Date Time Provider Department ([id number]) 02/18/20 ALICIA BLOUNT INTMWS During your visit [...] Diarrhea METFORMIN 05/10/2011 6 - Diarrhea NEOSPORIN (TEPQBATJ-VMWAESYWKB-LH*08/31/2008 2 - Rash Comments: blisters PROTONIX (PANTOPRAZOLE) [...] on 2020-02-13 CNPN Telephone (INTMWS) Normal 02-13-2020 [place] [facility] ANA IVORY ([id number]) 1940 [facility] Date Time Provider Department ([id number]) 02/13/20 ALICIA BLOUNT INTMWS During your visit [...] to have Physical Thera py done at [facility]. Please fax order and patient will schedule appointment. Yulisa Bills LPN 02/19/2020 7:56 AM Signed Order has been faxed to [facility] as requested. 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 Author Type: Physician Type: Progress Notes Filed: 01/27/2020 4:59 PM Note Text: This note was created using Sokoriter. Subjective Ana Ivory is a 79 year [...] appointment with Dr. Nacho Munguia (Endocrinology at [facility]) at the end of this month. [...] C. difficile diarrhea 10/18/2011 - Cataract 04/17/2013 [facility], Dr. Dada Rodríguez. Mild cataract in L eye- no need for cataract surgery at this time. Continue to follow u p the cataract. 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 At [facility] s time, we [...] by mouth twice daily. (Dr Don[facility] (E08.40 , Z79.4) Diabetes mellitus [...] s by mouth once daily. - Insulin [place], Disposable, (EASY TOUCH) 31 gauge x 3/16 [...] Negative Negative Ketones, Urine Negative Negative Specific [place], Ur 1.005 - 1.030 1.014 Hemoglobin/Blood,Ur Negative [...] Ratio <30 mg/g 668 (H) Not calculated [place] Free, Serum 3.30 - 19.40 mg/L 19.8 [...] ICD-10-CM 1. Stroke determined by clinical assessment ([facility]) I63.9 Left hemispheric stroke with right sided weakness.Gait insta bility and word finding problems noted. 2. 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 Essential hypertension [...] after appt, reviewed last progress note with MUSIC GRAPHER and diagnosis of Bronch iectasis noted.F/U prn [...] outside provider on resul ts of the [place], Lambda and kappa/lambda serum ratio. Discussed they [...] order in scan ed documents--Dr. Pandya at [place] ordered the test for diagnosis of [...] and/or coordi nating care for the patient. Roul-zx-trka time was at least 45 minutes. MD bony Rodríguez on 2020-01-27 CNPN Telephone (INTMWS) Normal 01-27-2020 [place] ANA Caro ([id number]) 1940 [facility] Date Time Provider Department ([id number]) 01/27/20 ALICIA BLOUNT INTMWS During your visit [...] notify nurse please? Please advise Clarence Berry APRN.PAYMENT ANALYST 01/27/2020 10:56 AM Addendum need supplements added below frequency, route - daily oral? Should be taking these medic ations unless discontinued by provider: sumatriptan as needed (Alicia Blount MD) and cephalexin (Dr. Don) . See office encounter this date. Juana Muro LPN 01/27/2020 4:11 PM Signed Reviewed supplements, added to Med list with [facility] Nurse. Advised of below recommendat ion, [...] using ABRAM: No Authorizing Provider: CLARENCE BERRY (PAYMENT ANALYST) Cranberry-Vitamin C-Vitamin E (CRANBERRY PLUS VITAMIN C) [...] Diarrhea METFORMIN 05/10/2011 6 - Diarrhea NEOSPORIN (QIGMOTVI-FPNZQFUONW-XY*08/31/2008 2 - Rash Comments: blisters PROTONIX (PANTOPRAZOLE) [...] Status:Closed by ALICIA BLOUNT MD on 01/27/20 [facility] Telephone (INTMWS) Normal 01-27-2020 [place] ANA Caro ([id number]) 1940 [facility] Date Time Provider Department ([id number]) 01/27/20 ALICIA BLOUNT INTMWS During your visit today, we recorded the following informati on about you: Chelsy Vogel RN 01/27/2020 3:42 PM Signed [facility] Speech Therapist Melva #[phone], calls to report breanna n of care for patient. She will visit amna ent 1 x week one and 2 times 2 weeks to assist with compensatory strategies of word finding. No need to call back if agreeable. Chelsy Berry, BENCH REPAIR TECHNICIAN.PAYMENT ANALYST 01/27/2020 3:53 PM Signed OK Allergies As [...] Diarrhea METFORMIN 05/10/2011 6 - Diarrhea NEOSPORIN ([id number]-[id number]-JU*08/31/2008 2 - Rash Comments: blisters PROTONIX (PANTOPRAZOLE) [...] 2020-01-27 [facility] Office Visit (INTMWS) Normal 01-27-20 [place] [facility] ANA IVORY ([id number]) 1940 [place] Date Time Provider Department ([id number]) 01/27/20 8:40 AM ALICIA BLOUNT INTMWS During your visit today, we recorded the following informati on about you: Pulse Respiration Blood pressure Weight 68/minute 20/minute 140/70 59 kg Alicia Blount MD 01/27/2020 4:59 PM Signed This note was created using Sokoriter. Subjective Ana Ivory is a 79 year [...] appointment with Dr. Nacho Munguia (Endocrinology at [facility]) at the end of this month. [...] C. difficile diarrhea 10/18/2011 - Cataract 04/17/2013 [facility], Dr. Dada johnson Mild cataract in L eye- no need for cataract surgery at this time. Continue to follow up the cat aract. 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 At thi s time, we anticipate that the patient will be discharged home once c linically stable. Plan: - Discuss needs with patient. - Collaborate with Case management to facilitate DC process - Will continue to evaluate during the post op period. - Desat study 11/14/14: patient will need home oxygen (2 L with exertion only) - [facility]charge home today [facility] for assistance with chest tube to [...] by mouth twice daily. (Dr Don) [facility] (E08.40, Z79.4) Diabetes mellitus [...] les by mouth once daily. - Insulin [place], Disposable, (EASY CARROL CH) 31 gauge x [...] Negative Negative Ketones, Urine Negative Negative Specific [place], Ur 1.005 - 1.030 1.014 Hemoglobin/Blood,Ur Negative [...] Ratio <30 mg/g 668 (H) Not calculated [place] Free, Serum 3.30 - 19.40 mg/L 19.8 [...] ICD-10-CM 1. Stroke determined by clinical assessment ([facility]) I63.9 Left hemispheric stroke with right sided weakness.Gait ins tability and word finding problems noted. 2. 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, with long-term current use of insulin ([facility]) E08.40 Z79.4 3. Essential hypertension [...] after appt, reviewed last progress note with MUSIC GRAPHER and diagnosis of Bronchiectasis noted.F/U prn Though [...] with outside provider on results of the [place], Lambda and kappa/lambda serum ratio. Discussed they [...] order in scanned documents--Dr. Anshul britton at [place] ordered the test for diagnosis [...] counseling and/or coordinating care for the patient. Pdls-qp-aiyt time was at least 45 minutes. Alicia Blount MD Referring Provider: CLARENCE BERRY (PAYMENT ANALYST) [[id number]] Allergies As of Date: 01/27/2020 Noted Allergy [...] Diarrhea METFORMIN 05/10/2011 6 - Diarrhea NEOSPORIN (HGKZCXHM-ICYFCYOKDZ-UA*08/31/2008 2 - Rash Comments: blisters PROTONIX (PANTOPRAZOLE) 01/13/2010 6 - Diarrhea RELAFEN (NABUMETONE) 03/22/2006 8 - GI Upset 11 - Vomiting ACTOS (PIOGLITAZONE HCL) 12/03/2016 7 - Swelling Date Reviewed: 01/27/2020 Reviewed by: Cintia Macias LPN - Fully Assessed Reason for Visit: Follow Up [171] Primary Visit Diagnosis:Stroke determine d by clinical assessment ([facility]) [I63.9] Comment:Left hemispheric stroke with right sided weakness.Gait instability and word finding problems noted. Other Visit Diagnoses:Diabetes mellitus due to underlying co ndition with diabetic neuropathy, with long-term current use of insulin ([facility]) [E08.40, Z79.4] Essential hypertension [I10] [...] after appt, reviewed last progress note with MUSIC GRAPHER and diagnosis of Bronchiectasis noted.F/U prn Order(s):ketoconazole [...] Status:Closed by ALICIA BLOUNT MD on 01/27/20 [facility]) Normal 01-26-2020 [place] [facility] ANA IVORY ([id number]) 1940 [facility] Date Time Provider Department ([id number]) 01/26/20 ALICIA BLOUNT INTMWS During your visit today, we recorded the following informati on about you: Mansi Preston [employer] SE[employer] PLANT MANAGER 01/26/2020 2:29 PM Signed Jannette Blair from [facility] Home Health OT plan of care 2 vis its weekly for 3 weeks working on ADL, strengthening, hand writing. Clarence Berry APRN.PAYMENT ANALYST 01/26/2020 2:41 PM Signed [place], see below [...] Diarrhea METFORMIN 05/10/2011 6 - Diarrhea NEOSPORIN (JAKVBZBW-RVQHIKWVXF-QU*08/31/2008 2 - Rash Comments: blisters PROTONIX (PANTOPRAZOLE) 01/13/2010 6 - Diarrhea RELAFEN (NABUMETONE) 03/22/2006 8 - GI Upset 11 - Vomiting ACTOS (PIOGLITAZONE HCL) 12/03/2016 7 - Swelling Date Reviewed: 01/08/2020 Reviewed by: Isabela Mendoza Automotive Finance Manager - Fully Assessed Reason for Visit: OT [...] Status:Closed by CINTIA MACIAS LPN on 01/27/20 [facility] Telephone ([facility]) Normal 01-26-2020 [place] [facility] ANA IVORY ([id number]) 1940 [address] [facility] Time Provider Department ([id number]) 01/26/20 ALICIA BLOUNT During your visit today, [...] calling: self Call patient at: on cell [phone] (home) [phone] (cell) Was an appointment scheduled: No Closing statement: Results or non-symptom based questions: Thank you for calling [facility], your call will be returned within the next business day. Libertad Anthonying Pss Isabela Hernandez Rosalbadal Automotive Finance Manager 01/26/2020 3:32 PM Signed Looks like patient has one touch device. Unsure what micro lancets to choose. Please advise. Thank you. Clarence Berry APRN.PAYMENT ANALYST 01/27/2020 8:13 AM Signed Rx sent Allergies [...] Diarrhea METFORMIN 05/10/2011 6 - Diarrhea NEOSPORIN (VVSELBQS-XXTWIQLWVH-WS*08/31/2008 2 - Rash Comments: blisters PROTONIX (PANTOPRAZOLE) 01/13/2010 6 - Diarrhea RELAFEN (NABUMETONE) 03/22/2006 8 - GI Upset 11 - Vomiting ACTOS (PIOGLITAZONE HCL) 12/03/2016 7 - Swelling Date Reviewed: 01/08/2020 Reviewed by: Isabela Mendoza Automotive Finance Manager - Fully Assessed Reason for Visit: lancets [...] 25 Hydroxy 43.5 31.0-80.0 ng/mL Normal 0 [facility] (69494) Comment: Result Comment: Classificati on of 25 [place] Vitamin D status: Insufficiency/Moderate Defic iency: < or = 30 ng/mL Sufficiency/Optimal Levels: 31 to 80 ng/mL Toxicity: > 100 ng/mL Test performed by chemilumin escent immunoassay. Performed By: #### FT4, TSH, HBA1C, VITD ####[facility] [address] levelandPaul [place] [phone] vitamin b12 on 2019 Cobalamin (Vitamin B12) 092 579-8436 pg/mL Normal 2019 [facility] [Mass/Vol] [place] (68489) Comment: Performed By: #### B12, SERF OL, KLFRS ####[facility]reg[facility] hospital companyandAustin [place] [address] [phone] urinalysis with microscopic on 2020-01-22 Bilirubin, Urine Negative Negative Normal 01-22-2020 [facility] (25373) Comment: Performed By: #### UAWMIC ## ##[facility]leveland[address] [place] [phone]- [phone] Clarity (U) Slightly Cloudy Clear Critically abnormal [facility] (30644) Comment: Performed By: #### UAWMIC ## ##[facility] [address]levelandPaul [place] [phone] Color (U) Light Yellow Yellow Critically abnormal 020 [facility] (50674) Comment: Performed By: #### UAWMIC ## ##[facility] [place] [phone]- [phone] Comments SEE COMMENT Normal 01-22-2020 [facility] (89645) Comment: Result Comment: N/A Performed By: #### UAWMIC ## ##[facility] [place] [phone]- [phone] Epithelial cells LM.HPF SEE COMMENT Normal 01-11 [facility] (Urine sed) [#/Area] [place] (76097) Comment: Result Comment: Few Squamous Epithelial Cells Performed By: #### UAWMIC ## ##[facility] [place] [phone] Glucose Ql (U) Negative Negative Normal 01-22-2020 [facility] (02242) Comment: Performed By: #### UAWMIC ## ##[place] [address] [address], [place] [phone] Hemoglobin/Blood,Ur Negative Negative Normal 01-22-2020 [facility] (22375) Comment: Performed By: #### UAWMIC ## ##[place] [address] [address], [place] [phone] Ketones Ql (U) Negative Negative Normal 01-22-2020 [facility] (89725) Comment: Performed By: #### UAWMIC ## ##[place] [address] [address], [place] [phone] Leukest 2+ Negative Critically abnormal 01-22-2020 [facility] (92894) Comment: Performed By: #### UAWMIC ## ##[place] [address] [address], [place] [phone] Nitrite Ql (U) Negative Negative Normal 01-22-2020 [facility] (92683) Comment: Performed By: #### UAWMIC ## ##[place] [address] [address] [employer], [place] [phone]- [phone] pH (Bld) 6.0 5.0-8.0 Normal 01-22-2020 [facility] (61456) Comment: Performed By: #### UAWMIC ## ##[place] [address] [address], [place] [phone] Protein (U) [Mass/Vol] Negative Negative mg/dL Normal 020 [facility] (14649) Comment: Performed By: #### UAWMIC ## ##[place] [address] [address], [place] [phone] RBC (U) [#/Vol] 0-3 0-3 Normal 01-22-2020 [facility] (01875) Comment: Performed By: #### UAWMIC ## ##[facility] [place] [phone]- [phone] Specific [place], Ur 1.014 1.005-1.030 Normal 020 [facility] (56520) Comment: Performed By: #### UAWMIC ## ##[facility] [place] [phone] Urine Sam Comment SEE COMMENT Normal 01-22-2020 [facility] (99488) Comment: Result Comment: N/A Performed By: #### UAWMIC ## ##[place] [address] [address] [place] [phone] Urobilinogen Qn (U) Negative Negative Normal 01-22-2020 [facility] (22240) Comment: Performed By: #### UAWMIC ## ##[place] [address] [address] [place] [phone]- [phone] WBC (Bld) [#/Vol] 6-10 0-5 Critically abnormal [facility] (37860) Comment: Performed By: #### UAWMIC ## ##[place] [address] [address] [place] [phone]- [phone] tsh on 2020-01-22 TSH Qn 3.670 0.270-4.200 uU/mL Normal 01-22-2020 [facility] (68974) Comment: Performed By: #### FT4, TSH, HBA1C, VITD ####[facility] levelandPaul [place] [phone] kappa/abraham,free,ser on 2020-01-22 K/L Ratio, Serum 1.69 0.26-1.65 High 01-22-2020 [facility] (61011) Comment: Performed By: #### B12, SERF OL, KLFRS ####[facility] AveClevelMelanie [place] [address] [phone] [place], Free, Serum 19.8 3.30-19.40 mg/L High 01-22-2020 [facility] (92962) Comment: Result Comment: Test perform ed by an immunoturbidimetric assay on Optilite instrument from [facility] . Immunoglobulin free light chain assay results should be interpreted in con junction with other tests and in correlation with clinical picture. Performed By: #### B12, SERF OL, KLFRS ####[facility] AveCM[address] [place] [address] [phone] Lambda, Free, Serum 11.7 5.7-26.3 mg/L Normal 01-22-2020 [facility] (34436) Comment: Result Comment: Test perform ed by an immunoturbidimetric assay on Optilite instrument from [facility] . Immunoglobulin free light chain assay results should be interpreted in con junction with other tests and in correlation with clinical picture. Performed By: #### B12, SERF OL, KLFRS ####[place] [id number] AveCM[place] [address] [phone] hemoglobin a1c on 2 HbA1c (Bld) [Mass fraction] 7.2 4.3-5.6 % High [facility] (27710) Comment: Result Comment: [place] Edilma betes [employer] guidelines indicate that patients with HgbA1c in the range 5.7-6.4% are at increased risk for development of diabetes, and intervention by lifestyle modification may be beneficial. HgbA1c greater o r equal to 6.5% is considered diagnostic of diabetes. Performed By: #### FT4, TSH, HBA1C, VITD ####[facility] [address] [place], [place] [phone] HbA1c (Bld) [Mass fraction] 160 mg/dL Normal [facility] (79007) Comment: Result Comment: eAG: (Estima amando average glucose) is a calculated value from HgbA1c and is brand representative of the average blood glucose level in the last 2-3 month period. Performed By: #### FT4, TSH, HBA1C, VITD ####[facility] [address] [facility] [place], [place] [phone] free t4 on Free T4 [Mass/Vol] 1.1 0.9-1.7 ng/dL Normal 01-22-2020 [facility] (65359) Comment: Performed By: #### FT4, TSH, HBA1C, VITD ####[facility] [address] [facility] [place], [place] [phone] folate, serum on 30-01-11 Folate [Mass/Vol] 13.8 >4.7 ng/mL Normal 01-22-2020 C [facility] (76081) Comment: Performed By: #### B12, SERF OL, KLFRS ####[facility] [address] [phone] comp metabolic panel on 2020-01-22 Albumin [Mass/Vol] 4.3 3.9-4.9 g/dL Normal 01-22-2020 [facility] (88201) ALP [Catalytic 83 34-123 U/L Normal 01-22-2020 [facility] activity/Vol] Clevel and (78915) ALT [Catalytic 14 7-38 U/L Normal 01-22-2020 [facility] activity/Vol] Clevel and (07031) Anion gap 9 9-18 mmol/L Normal 01-22-2020 [facility] [Moles/Vol] Clevelan d (12223) AST [Catalytic 14 13-35 U/L Normal 01-22-2020 [facility] activity/Vol] Clevel and (76068) Bilirubin [Mass/Vol] 0.4 0.2-1.3 mg/dL Normal 0 [facility] (02196) Calcium [Mass/Vol] 9.3 8.5-10.2 mg/dL Normal 01-22-2020 [facility] (82104) Chloride [Moles/Vol] 103 97-105 mmol/L Normal 0 [facility] (72191) CO2 [Moles/Vol] 27 22-30 mmol/L Normal 01-22-2020 [facility] (94731) Creatinine 0.61 0.58-0.96 mg/dL Normal 01-22-2020 [facility] [Mass/Vol] [place] (75965) eGFR- Amer. >60 Normal 01-22-2020 [facility] (49040) GFR/1.73 sq M >60 mL/min/{1.73_m Normal 01-22-2020 [facility] predicted among 2} Clev rufina (28995) non-blacks MDRD (S/P/Bld) [Vol rate/Area] Comment: Result [...] Glucose [Mass/Vol] 168 74-99 mg/dL High 01-22-2020 [facility] (95661) Comment: Result Comment: The [place] Diabetes Association (ADA) provides guidance for cutoff [...] for diagnosis of diabetes. Reference: Standards of [facility] Care in Diabetes 2016, [place] Diabetes Association. Diabetes Care. 2016.39(Suppl 1). Potassium [Moles/Vol] 4.2 3.7-5.1 mmol/L Normal 01-22-20 20 [facility] (07898) Protein [Mass/Vol] 7.2 6.3-8.0 g/dL Normal 01-22-2020 [facility] (02937) Sodium [Moles/Vol] 139 136-144 mmol/L Normal 01-22-2020 [facility] (25350) Urea nitrogen [Mass/Vol] 12 7-21 mg/dL Normal 01-21 [facility] (10929) cbc on 2020-01-22 Absolute nRBC <0.01 <0.01 Normal 01-22-2020 [facility] (08884) Erythrocyte distribution 12.7 11.5-15.0 % Normal 01-21 [facility] width (RBC) [Ratio] [place] (80646) Hematocrit (Bld) [Volume 38.1 36.0-46.0 % Normal 01-21 [facility] fraction] [place] (01334) Hemoglobin (Bld) 13.2 11.5-15.5 g/dL Normal 01-22-2020 [facility] [Mass/Vol] [place] (61677) MCH (RBC) [Entitic mass] 31.2 26.0-34.0 pG Normal 01-21 [facility] (40101) MCHC (RBC) [Mass/Vol] 34.6 30.5-36.0 g/dL Normal 01-22-20 20 [facility] (89676) MCV (RBC) [Entitic vol] 90.1 80.0-100.0 fL Normal 01-21 [facility] (50141) Platelet mean volume 9.4 9.0-12.7 fL Normal 0 [facility] (Bld) [Entitic vol] [place] (06987) Platelets (Bld) [#/Vol] 219 150-400 k/uL Normal 2019 [facility] (25159) RBC (Bld) [#/Vol] 4.23 3.90-5.20 m/uL Normal 01-22-2020 C [facility] (52468) WBC (Bld) [#/Vol] 5.65 3.70-11.00 k/uL Normal 01-22-2020 [facility] (70362) albumin/creat ratio on 2020-01-22 Albumin Urine Random <12.0 Normal 0 [facility] (15982) Comment: Performed By: #### UACR #### [facility] [address] [place], [place] [phone] Albumin/Creat Ratio Not calculated <30 Normal 01-21 [facility] (71413) Comment: Performed By: #### UACR #### [facility] [address] [place], [place] [phone] Creatinine,Urine,Ran 68.1 20-300 mg/dL Normal 0 [facility] (75823) Comment: Performed By: #### UACR #### [facility] [place], [place] [phone] cnpn on 2020-01-21 CNPN Telephone (INTMWS) Normal 01-21-2020 [place] [facility] ANA IVORY ([id number]) 1940 [facility] Date Time Provider Department () 01/21/20 ALICIA BLOUNT INTMWS During your visit today, we recorded the following informati on about you: Minor Zamora 01/21/2020 1:45 PM Signed Marlene Osorio / [facility] PT calls with plan of care. [...] Diarrhea METFORMIN 05/10/2011 6 - Diarrhea NEOSPORIN (HEJZLKJR-KTLGHEMMNZ-NF*08/31/2008 2 - Rash Comments: blisters PROTONIX (PANTOPRAZOLE) 01/13/2010 6 - Diarrhea RELAFEN (NABUMETONE) 03/22/2006 8 - GI Upset 11 - Vomiting ACTOS (PIOGLITAZONE HCL) 12/03/2016 7 - Swelling Date Reviewed: 01/08/2020 Reviewed by: Isabela Mendoza Automotive Finance Manager - Fully Assessed Reason for Visit: PT [...] DEVINE LPN on 01/21/20 nemesion [facility]) Normal 01-20-2020 [place] ANA Caro ([id number]) 1940 [facility] [address] [facility] Date Time Provider Department ([id number]) 01/20/20 ALICIA BLOUNT INTMWS During your visit today, we recorded the following informati on about you: Chelsy Vogel RN 01/20/2020 10:09 AM Signed Granddaughter Coby calls- Requests referral to endocr inology as sugars more out of control recently. Would like patient to see Dr. Munguia at [place], please fax to #[phone]. Please review and advise. MANNY Santamaria MD 01/20/2020 10:20 AM Signed Filed order Noted granddaughter requested referral to Dr. Munguia. Have patient let me know how sugars are doing as well. Mansi Preston [employer] MANAGER 01/20/2020 10:48 AM Signed Phoned grand daughter [...] Diarrhea METFORMIN 05/10/2011 6 - Diarrhea NEOSPORIN ([id number]-[id number]-XC*08/31/2008 2 - Rash Comments: blisters PROTONIX (PANTOPRAZOLE) 01/13/2010 6 - Diarrhea RELAFEN (NABUMETONE) 03/22/2006 8 - GI Upset 11 - Vomiting ACTOS (PIOGLITAZONE HCL) 12/03/2016 7 - Swelling Date Reviewed: 01/08/2020 Reviewed by: Isabela Mendoza Automotive Finance Manager - Fully Assessed Reason for Visit: endocrinology consult [Other] Primary Visit Diagnosis:Type 2 diabetes mellitus without c omplication, with long-term current use of insulin ([facility]) [E11.9, Z79.4] Other Visit Diagnosis:Type 2 diabetes mellitus with hypergly cemia, with long-term current use of insulin ([facility]) [E11.65, Z79.4] Order(s):CONSULT TO ENDOCRINOLOGY [9007] Order #: [id number] Qty: 1 FUTURE Prescriptions as of 01/20/2020 [...] 01/20/20 progress on 2019-12 PROGRESS HNO ID: [id number] Normal 01-08-2020 [facility] Author: Alicia Blount [place] ([id number]) Service: ? Author Type: Physician Type: Progress Notes Filed: 01/19/2020 12:04 AM Note Text: This note was created using Sokoriter. Subjective Ana Ivory is a 79 year [...] to presenting in e emergency department at [facility]. Also noticed decre ased ability [...] visit. TRANSITION CARE MANAGEMENT (TCM) INITIAL CONTACT Dobby Looms Pegger Outreach Provider Action/FYI: Initial contact with patient post discharge, spoke to myrtle sumner Patient identified by name and . TRANSITION CARE MANAGEMENT INITIAL OUTREACH DOCUMENTATION: Date of Outreach: 01/06/2020 Outreach Attempt 1: Contact Made Date of Discharge 01/03/2020 Some recent data might be hidden SUMMARY: -Pt discharged from [facility] on 01/03/20. -Admitted for: CVA Do [...] C. difficile diarrhea 10/18/2011 - Cataract 04/17/2013 [facility], Dr. Dada Rodríguez. Mild cataract in L eye- no need for cataract surgery at this time. Continue to follow u p the cataract. 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 At thi s time, we anticipate that the patient will be discharged home once cli nically stable. Plan: - Discuss needs with patient. - Collaborate [facility] Case management to facilitate DC process - [...] daily. (Dr Don) - [facility] [place] [facility] (E08.40 , Z79.4) Diabetes mellitus [...] s by mouth once daily. - Insulin [place], Disposable, (EASY TOUCH) 31 gauge x 3/16 [...] ICD-10-CM 1. Stroke determined by clinical assessment ([facility]) I63.9 Left hemispheric with right [...] with long- term current use of insulin ([facility]) E11.9 Z79.4 Discussed hospital stay [...] and/or coordi nating care for the patient. Ylid-kp-vhmx time was at least 40 minutes. Alicia Blount MD PROGRESS HNO ID: [id number] Normal 01-08-2020 [facility] Author: Alicia Blount [place] ([id number]) Service: ? Author Type: Physician Type: Progress Notes Filed: 01/08/2020 8:53 AM Note Text: Below noted cnov on 2020-01-08 CNOV Office Visit (INTMWS) Normal 01-07-20 20 [place] [facility] ANA IVORY ([id number]) 1940 [facility] Date Time Provider Department ([id number]) 01/08/20 9:00 AM ALICIA BLOUNT INTMWS During your visit today, we recorded the following informati on about you: Temperature Pulse Respiration Blood pressure 96 degrees 70/minute 16/minute 110/78 Weight 58.5 kg Alicia Blount MD 01/19/2020 12:04 AM Signed This note was created using Sokoriter. Subjective Ana Ivory is a 79 year [...] presenting in the emergency departmen t at [facility]. Also noticed decreased ability to [...] visit. TRANSITION CARE MANAGEMENT (TCM) INITIAL CONTACT Dobby Looms Pegger Outreach Provider Action/FYI: Initial contact with patient post discharge, spoke to myrtle sumner Patient identified by name and . TRANSITION CARE MANAGEMENT INITIAL OUTREACH DOCUMENTATION: Date of Outreach: 01/06/2020 Outreach Attempt 1: Contact Made Date of Discharge 01/03/2020 Some recent data might be hidden SUMMARY: -Pt discharged from [facility] on 01/03/20. -Admitted for: CVA Do [...] C. difficile diarrhea 10/18/2011 - Cataract 04/17/2013 [facility], Dr. Dada johnson Mild cataract in L eye- no need for cataract surgery at this time. Continue to follow up the cat aract. 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 At thi s time, we anticipate that the patient will be discharged home once c linically stable. Plan: - Discuss needs with patient. - Collaborate with Case management to facilitate DC process - Will continue to evaluate during the post op period. - Desat study 11/14/14: patient will need home oxygen (2 L with exertion only) - [facility]charge home [facility] for assistance with chest tube to [...] by mouth twice daily. (Dr Don) - [facility] [employer] [facility] [employer] [facility] (E08.40, Z79.4) Diabetes mellitus [...] les by mouth once daily. - Insulin [place], Disposable, (EASY CARROL CH) 31 gauge x [...] ICD-10-CM 1. Stroke determined by clinical assessment ([facility]) I63.9 Left hemispheric with right [...] counseling and/or coordinating care for the patient. Bqae-du-qxaz time was at least 40 minutes. Alicia Blount MD Referring Provider: ALICIA BLOUNT [[id number]] Allergies As of Date: 01/08/2020 Noted Allergy [...] Diarrhea METFORMIN 05/10/2011 6 - Diarrhea NEOSPORIN (KKGTWUJT-UVDUCBOXYO-QH*08/31/2008 2 - Rash Comments: blisters PROTONIX (PANTOPRAZOLE) 01/13/2010 6 - Diarrhea RELAFEN (NABUMETONE) 03/22/2006 8 - GI Upset 11 - Vomiting ACTOS (PIOGLITAZONE HCL) 12/03/2016 7 - Swelling Date Reviewed: 01/08/2020 Reviewed by: Isabela Mendoza Automotive Finance Manager - Fully Assessed Reason for Visit: Transition Of Care [4074] Primary Visit Diagnosis:Stroke determine d by clinical assessment ([facility]) [I63.9] Comment:Left hemispheric with right [...] complication, with long-term current use of insulin ([facility]) [E11.9, Z79.4] Order(s):atorvastatin (LIPITOR) 20 [...] on 2020-01-08 CNCO Letter Text Normal 01-08-2020 [facility] ([id number]) progress on 2019-12 PROGRESS HNO ID: [id number] Normal 01-06-2020 [facility] Author: Alicia Blount [place] ([id number]) Service: ? Author Type: Physician Type: Progress Notes Filed: 01/08/2020 8:53 AM Note Text: TRANSITION CARE MANAGEMENT (TCM) INITIAL CONTACT Dobby Looms Pegger Outreach Provider Action/FYI: Initial contact with patient post discharge, spoke to myrtle sumner Patient identified by name and . TRANSITION CARE MANAGEMENT INITIAL OUTREACH DOCUMENTATION: Date of Outreach: 01/06/2020 Outreach Attempt 1: Contact Made Date of Discharge 01/03/2020 Some recent data might be hidden SUMMARY: -Pt discharged from [facility] on 01/03/20. -Admitted for: CVA Do [...] Refill (INTMWS) Normal 01-06-2020 [facility] ANA IVORY ([id number]) 1940 [facility] Date Time Provider Department ([id number]) 01/06/20 ALICIA BLOUNT INTMWS During your visit today, we recorded the following informati on about you: Mitzi Crystalelder [facility] 01/06/2020 9:01 AM Signed Patient has been [...] need to notify patient. Mitzi Crystalelder [facility] Juana Muro LPN 01/06/2020 11:36 AM Signed [...] Diarrhea METFORMIN 05/10/2011 6 - Diarrhea NEOSPORIN (RQGSVGSE-GPRIAAFZIW-IK*08/31/2008 2 - Rash Comments: blisters PROTONIX (PANTOPRAZOLE) [...] CNPTOUTREACH Patient Outreach (INTMWS) Normal 0 01-06-2020 [place] [facility] ANA IVORY ([id number]) 1940 [facility] Date Time Provider Department ([id number]) 01/06/20 ALICIA BLOUNT INTMWS During your visit today, we recorded the following informati on about you: Alicia Blount MD 01/08/2020 8:53 AM Signed TRANSITION CARE MANAGEMENT (TCM) INITIAL CONTACT Dobby Looms [facility] Outreach Provider Action/FYI: Initial contact with patient post discharge, spoke to myrtle sumner Patient identified by name and . TRANSITION CARE MANAGEMENT INITIAL OUTREACH DOCUMENTATION: Date of Outreach: 01/06/2020 Outreach Attempt 1: Contact Made Date of Discharge 01/03/2020 Some recent data might be hidden SUMMARY: -Pt discharged from [facility] on 01/03/20. -Admitted for: CVA Do [...] Diarrhea METFORMIN 05/10/2011 6 - Diarrhea NEOSPORIN (NTXEQAEL-VPABKISTID-WU*08/31/2008 2 - Rash Comments: blisters PROTONIX (PANTOPRAZOLE) [...] BLOUNT MD on 01/08/20 cnpn on 2020-01-06 [facility] Normal 01-06-2020 [place] [facility] ANA IVORY ([id number]) 1940 [facility] Date Time Provider Department ([id number]) 01/06/20 ALICIA BLOUNT INTMWS During your visit today, we recorded the following informati on about you: Sahra Harman RN 01/06/2020 2:54 PM Signed Pt's family member called, verified pt by name a nd birthdate. They would like to have pt start home PT AND ST with [facility]. If PCP approves, please notify [facility]. Pt has apt with provider on 01-08-2020 Sahra Blount MD 01/07/2020 1:25 PM Signed Approve as requested Juana Muro LPN 01/07/2020 2:15 PM Signed Patient scheduled to see Dr. Blount, . Will send Order, Demographic sheet, Med list, Office notes to [phone]. Juana britton LPN Allergies As of Date: [...] Diarrhea METFORMIN 05/10/2011 6 - Diarrhea NEOSPORIN (WQVXHYCW-JWVINIAGMD-TI*08/31/2008 2 - Rash Comments: blisters PROTONIX (PANTOPRAZOLE) [...] on 01/07/20 CNPN Telephone (INTMWS) Normal 01-06-2020 [place] [facility] ANA IVORY ([id number]) 1940 [facility] Date Time Provider Department ([id number]) 01/06/20 ALICIA BLOUNT INTErisWS During your visit [...] Diarrhea METFORMIN 05/10/2011 6 - Diarrhea NEOSPORIN (GFLCCDUB-AWSOBHNSFR-EY*08/31/2008 2 - Rash Comments: blisters PROTONIX (PANTOPRAZOLE) [...] OBSOLETE Refill (INTMWS) Normal 12-03-2019 Mannie mancini [facility] ERIKANA LOWE Summer ([id number]) 1940 [facility] Date Time Provider Department ([id number]) 12/03/19 ALICIA BOLUNT INTMWS During your visit today, we recorded [...] Diarrhea METFORMIN 05/10/2011 6 - Diarrhea NEOSPORIN (JRJSHCWY-HSGQDYOHFY-VI*08/31/2008 2 - Rash Comments: blisters PROTONIX (PANTOPRAZOLE) [...] [E78.5] 11/06/2016 Functional dyspepsia [K30] 08/20/2017 More... Strickladn's esophagus without dysplasia [K22.70] 08/20/2017 More... Gastroesophageal reflux disease with esophagiti*08/20/2017 More... 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]11/22/2018 Encounter Status:Closed by BREONNA TRENT on 12/03/19 cnpn on 2019-10-28 CNPN Telephone (INTMWS) Normal 10-28-2019 [place] [facility] ANA IVORY ([id number]) 1940 [facility] Date Time Provider Department ([id number]) 10/28/19 ALICIA BLOUNT INTVENKAT During your visit [...] Diarrhea METFORMIN 05/10/2011 6 - Diarrhea NEOSPORIN (CZGSCVUL-GKLXVMTWFP-KV*08/31/2008 2 - Rash Comments: blisters PROTONIX (PANTOPRAZOLE) [...] * *Final Report* * * Normal 10-24-2019 [place] AP/LAT/LOJA DATE OF EXAM: Oct 24 2019 11:23AM Clinic WOX 5329 - XR FACIAL BONES 3V AP/LAT/LOJA / [id number] [place] PROCEDURE REASON: multiple diagnoses ([id number]) * * * * Physician Interpretation * [...] occult frac ture. IMPRESSION: No Acute Fracture. Lens Edger: PSCB Transcribe Date/Time: Oct 24 2019 11:42A Dictated by : MANSI KOROMA MD This examination was interpreted and the report reviewed and electronically signed by: MANSI KOROMA MD on Oct 24 2019 11:43AM EST [id number] progress on 2019-10 PROGRESS HNO ID: [id number] Normal 10-24-2019 [facility] Author: Juanita StacyRt) Jessica Leiva [place] ([id number]) Service: ? Author Type: Clinic Nurse Type: Progress Notes Filed: 10/24/2019 11:24 AM [...] 24, 2019 11:10 AM PROGRESS HNO ID: [id number] Normal 10-24-2019 [facility] Author: Alicia Blount [place] ([id number]) Service: ? Author Type: Physician Type: Progress Notes Filed: 10/27/2019 5:40 PM Note Text: This note was created using Sokoriter. Subjective Ana Ivory is a 79 year old female. Patient presents with: Recheck: 3 month follow up SUBJECTIVE: Ana Ivory is a 79 year old year old lady here today f or 3 month follow up appointment for review of medical conditions. Ongoing balance issues. 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 No problems with breathing through nares at this time. Discussed [id number]--rhgdujgg wanted her to not go out. Lung history reviewed plus age and DM. Needs cough med prn. No adverse effects. 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 difficile diarrhea 10/18/2011 - Cataract 04/17/2013 [facility], Dr. Dada Rodríguez. Mild cataract in L eye- no need for cataract surgery at this time. Continue to follow u p the cataract. 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 At thi s time, we anticipate that the patient will be discharged home once cli nically stable. Plan: - Discuss needs with patient. - Collaborate [facility] Case management to facilitate DC process - Will continue to evalu ate during the post op period. - Desat study 11/14/14: patient will need home oxygen (2 L with exertion only) - Discharge home today with home ca re for assistance with chest tube to [facility]. Return to [facility] on Sun11/18/14 for [...] by mouth twice daily. (Dr Don) - [facility] [place] [employer] (E08.40 , Z79.4) Diabetes mellitus [...] s by mouth once daily. - Insulin [place], Disposable, (EASY TOUCH) 31 gauge x 16 [...] and/or coordi nating care for the patient. Zmpt-ux-hguu time was at least 35 minutes. MD bony Rodríguez on 2019-10-24 CNPN Telephone (INTMWS) Normal 10-24-2019 [place] AAN Caro ([id number]) 1940 [facility] Date Time Provider Department ([id number]) 10/24/19 ALICIA BLOUNT INTMWS During your visit today, we recorded the following informati on about you: Breonna Trent, RN, RN 10/24/2019 4:09 PM Signed Pt calls requesting results of xray from today. Clarence Berry APRN.PAYMENT ANALYST 10/24/2019 4:32 PM Signed No acute fracture [...] Diarrhea METFORMIN 05/10/2011 6 - Diarrhea NEOSPORIN (NKFFYPAP-QPLEQBZNPQ-JK*08/31/2008 2 - Rash Comments: blisters PROTONIX (PANTOPRAZOLE) [...] 2019-10-24 CNOV Office Visit (INTMWS) Normal 10-24-19 [place] [facility] ANA IVORY ([id number]) 1940 [facility] Date Time Provider Department ([id number]) 10/24/19 9:20 AM ALICIA BLOUNT During your visit today, we recorded the following informati on about you: Alicia Blount MD 10/27/2019 5:40 PM Signed This note was created using Headspace. Subjective Ana Ivory is a 79 year old female. Patient presents with: Recheck: 3 month follow up SUBJECTIVE: Ana Ivory is a 79 year old year old lady here today for 3 month follow up appointment for review of medical conditions. Ongoing balance issues. 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 No problems with breathing through nares at this time. Discussed [id number]--sahlxump wanted her to not go out. Lung history reviewed plus age and DM. Needs cough med prn. No adverse effects. 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 difficile diarrhea 10/18/2011 - Cataract 04/17/2013 [facility], Dr. Dada johnson Mild cataract in L eye- no need for cataract surgery at this time. Continue to follow up the cat aract. 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 At thi s time, we anticipate [...] daily. (Dr Don) - [facility] [place] [employer] [facility] (E08.40, Z79.4) Diabetes mellitus [...] les by mouth once daily. - Insulin [place], Disposable, (EASY CARROL ) 31 gauge x [...] counseling and/or coordinating care for the patient. Rzjw-gg-tctn time was at least 35 minutes. Alicia [...] Diarrhea METFORMIN 05/10/2011 6 - Diarrhea NEOSPORIN (RKXRSRJN-BSKUGGMOKP-RN*08/31/2008 2 - Rash Comments: blisters PROTONIX (PANTOPRAZOLE) [...] Hair thinning [L65.9] Order(s):mirabegron (MYRBETRIQ) 50 mg [id number] 1 tablet by m out twice daily.Disp: Rfl: XR FACIAL BONES 3V AP/LAT/LOJA [[id number]] Order #: [id number] FUTURE codeine-guaiFENesin (VIRTUSSIN AC) 10-100 mg/5 [...] 11 URINALYSIS WITH MICROSCOPIC [SQUAWMIC] Order #: [id number] F UTURE ALBUMIN/CREAT RATIO RND UR [SQUACR] Order #: [id number] FUTU RE HGB A1C [GCZXV9I] Order #: [id number] FUTURE COMP METABOLIC PANEL [SQCMP] Order #: [id number] FUTURE CBC [SQCBC] Order #: [id number] FUTURE VITAMIN D 25 HYDROXY [SQVITD] Order #: [id number] FUTURE TSH BLD [SQTSH] Order #: [id number] FUTURE T4 FREE/FREE THYROX [SQFT4] Order #: [id number] FUTURE Prescriptions as of 10/24/2019 Sig: CODEINE [...] 25 Hydroxy 38.3 31.0-80.0 ng/mL Normal 0 [facility] (67783) Comment: Result Comment: Classificati on of 25 [place] Vitamin D status: Insufficiency/Moderate Defic iency: < or = 30 ng/mL Sufficiency/Optimal Levels: 31 to 80 ng/mL Toxicity: > 100 ng/mL Test performed by chemilumin escent immunoassay. Performed By: #### VITD, LIP B, HBA1C ####[place] [address] [phone] tsh on 2019-10-20 TSH Qn 4.160 0.270-4.200 uU/mL Normal 10-20-2019 [facility] (52482) Comment: Performed By: #### TSH ####[place] [phone] lipid panel, basic on 2019-10-20 Cholesterol [Mass/Vol] 167 <200 mg/dL Normal 020 [facility] (82232) Comment: Result Comment: <200 mg/dL, Desirable 200-239 mg/dL, Borderline hi gh >239 mg/dL, High Performed By: #### VITD, LIP B, HBA1C ####[place] [address] [phone] Cholesterol in HDL 54 >39 mg/dL Normal 10-20-2019 [facility] [Mass/Vol] (85682) Comment: Result Comment: 40-59 mg/dL, Acceptable >59 mg/dL, High: Negative ri sk factor for coronary heart disease <40 mg/dL, Low: Positive ris k factor for coronary heart disease Performed By: #### VITD, LIP B, HBA1C ####[place] [address] [phone] Cholesterol in LDL 90 <100 mg/dL Normal 10-20-2019 [facility] [Mass/Vol] [place] (91058) Comment: Result Comment: <100 mg/dL, Optimal 100-129 mg/dL, Near optimal/ above optimal 130-159 mg/dL, Borderline hi gh 160-189 mg/dL, High >189 mg/dL, Very high Secondary prevention optimal LDL Cholesterol levels are recommended to be < 70 mg/dL Performed By: #### VITD, LIP B, HBA1C ####[place] [id number] [facility] [place] [address] [phone] Fasting Time 10 hrs Normal 10-20-2019 [facility] (78520) Comment: Result Comment: Corrected on 10/19 AT 0916: Previously reported as 1 Performed By: #### VITD, LIP B, HBA1C ####[address] [place] [address] [phone] LDL:HDL Ratio 1.67 <2.54 Normal 10-20-2019 [facility] (33895) Comment: Result Comment: Reference: 1. National Cholesterol Educ ation Program ATP III Guideline At-A-Glance Quick Desk Reference: National Heart, Lung, and Blood [place]. National Institutes of Health. 2001: NIH Publication No. 01-3305. 2. An International Atherosc lerosis Society position paper: global recommendations for the management of dyslipidemia: executive summary, Atherosclerosis. 2014: 232(2):410-413. Performed By: #### VITD, LIP B, HBA1C ####[address] [place] [address] [phone] Non HDL Cholesterol 113 <130 mg/dL Normal 10-20-2019 [facility] (89685) Comment: Result Comment: <130 mg/dL, Optimal 130-159 mg/dL, Near optimal/ above optimal 160-189 mg/dL, Borderline hi gh 190-219 mg/dL, High >219 mg/dL, Very high Secondary prevention optimal non HDL Cholesterol levels are recommended to be < 100 mg/dL Performed By: #### VITD, LIP B, HBA1C ####[place] [address] [facility] [place] [address] [phone] TC:HDL Ratio 3.09 <5.10 Normal 10-20-2019 [facility] (63036) Comment: Performed By: #### VITD, LIP B, HBA1C ####[place] [id number] [facility] [address] [address] Triglyceride [Mass/Vol] 115 <150 mg/dL Normal 2019 [facility] (31455) Comment: Result Comment: <150 mg/dL, Normal 150-199 mg/dL, Borderline hi gh 200-499 mg/dL, High >499 mg/dL, Very high Performed By: #### VITD, LIP B, HBA1C ####[place] [address] [address] [place] [address] VLDL Cholesterol 23 <30 mg/dL Normal 10-20-2019 [facility] (85639) Comment: Performed By: #### VITD, LIP B, HBA1C ####[place] [address] [address] [place] [address] [phone] hemoglobin a1c on 2 HbA1c (Bld) [Mass fraction] 7.4 4.3-5.6 % High [facility] (44218) Comment: Result Comment: [place] Edilma betes Association guidelines indicate that patients with HgbA1c in the range 5.7-6.4% are at increased risk for development of diabetes, and intervention by lifestyle modification may be beneficial. HgbA1c greater o r equal to 6.5% is considered diagnostic of diabetes. Performed By: #### VITD, LIP B, HBA1C ####[place] [address] [address] [place] [address] [phone] HbA1c (Bld) [Mass fraction] 166 mg/dL Normal [facility] (81587) Comment: Result Comment: eAG: (Estima amando average glucose) is a calculated value from HgbA1c and is brand representative of the average blood glucose level in the last 2-3 month period. Performed By: #### VITD, LIP B, HBA1C ####[place] [address] [address] [place] [address] [phone] comp metabolic panel on 2019-10-20 Albumin [Mass/Vol] 4.1 3.9-4.9 g/dL Normal 10-20-2019 [facility] (15960) ALP [Catalytic 82 34-123 U/L Normal 10-20-2019 [facility] activity/Vol] [facility] and (12223) ALT [Catalytic 7 7-38 U/L Normal 10-20-2019 [facility] activity/Vol] [facility] and (22185) Anion gap 10 9-18 mmol/L Normal 10-20-2019 [facility] [Moles/Vol] [facility] (63284[facility] AST [Catalytic 11 13-35 U/L Low 10-20-2019 [facility] activity/Vol] [facility] and (39185) Bilirubin [Mass/Vol] 0.3 0.2-1.3 mg/dL Normal 0 [facility] (72731) Calcium [Mass/Vol] 8.6 8.5-10.2 mg/dL Normal 10-20-2019 [facility] (33684) Chloride [Moles/Vol] 104 97-105 mmol/L Normal 0 [facility] (00470) CO2 [Moles/Vol] 26 22-30 mmol/L Normal 10-20-2019 [facility] (11079) Creatinine 0.61 0.58-0.96 mg/dL Normal 10-20-2019 [facility] [Mass/Vol] [place] (05299) eGFR- Amer. >60 Normal 10-20-2019 [facility] (66116) GFR/1.73 sq M >60 mL/min/{1.73_m Normal 10-20-2019 [facility] predicted among 2} [facility] (32314) non-blacks MDRD (S/P/Bld) [Vol rate/Area] Comment: Result [...] Glucose [Mass/Vol] 163 74-99 mg/dL High 10-20-2019 [facility] (13135) Comment: Result Comment: The [place] Diabetes Association (ADA) provides guidance for cutoff [...] for diagnosis of diabetes. Reference: Standards of [facility] Care in Diabetes 2016, [place] Diabetes Association. Diabetes Care. 2016.39(Suppl 1). Potassium [Moles/Vol] 3.7 3.7-5.1 mmol/L Normal 10-20-19 [facility] (38210) Protein [Mass/Vol] 6.6 6.3-8.0 g/dL Normal 10-20-2019 [facility] (12483) Sodium [Moles/Vol] 140 136-144 mmol/L Normal 10-20-2019 [facility] (46307) Urea nitrogen [Mass/Vol] 14 7-21 mg/dL Normal 10-19 [facility] (47127) cnpn on 2019-10-20 CNPN Telephone (FAMPWS) Normal 10-20-2019 [place] [facility] ANA IVORY ([id number]) 1940 [facility] Date Time Provider Department (68138) 10/20/19 ALICIA BLOUNT FAMPWS During your visit today, we recorded the following informati on about you: Laura Marr [employer] SE[employer]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 Pt i s requesting to get TSH added to orders. Pt told candlemaking laborer she wanted t his done and was advised they could do this if ordered test. Pt reports she has been losing a lot of hair lately. Laura Marr [employer] SE[employer] PLANT MANAGER Riddhi Marie [employer] SE[employer]ATION PLANT MANAGER 10/20/2019 2:59 PM Signed Lab notified. Test [...] Diarrhea METFORMIN 05/10/2011 6 - Diarrhea NEOSPORIN (YRXIBEZR-[id number]-[id number]*08/31/2008 2 - Rash Comments: blisters PROTONIX (PANTOPRAZOLE) 01/13/2010 6 - Diarrhea RELAFEN (NABUMETONE) 03/22/2006 8 - GI Upset 11 - Vomiting ACTOS (PIOGLITAZONE HCL) 12/03/2016 7 - Swelling Date Reviewed: 09/15/2019 Reviewed by: Isabella Billingsley) MANNY Kimble - Fully Assessed Reason for Visit: lab request [Other] Primary Visit Diagnosis:Hair loss [L65.9] Order(s):TSH BLD [SQTSH] Order #: [id number] FUTURE Prescriptions as of 10/20/2019 Sig: GABAPENTIN [...] 2019-10-20 Absolute nRBC <0.01 <0.01 Normal 10-20-2019 [facility] (93878) Erythrocyte distribution 13.2 11.5-15.0 % Normal 10-19 [facility] width (RBC) [Ratio] [place] (46841) Hematocrit (Bld) [Volume 38.3 36.0-46.0 % Normal 10-19 [facility] fraction] [place] (14704) Hemoglobin (Bld) 13.0 11.5-15.5 g/dL Normal 10-20-2019 [facility] [Mass/Vol] [place] (67142) MCH (RBC) [Entitic mass] 30.4 26.0-34.0 pG Normal 10-19 [facility] (28267) MCHC (RBC) [Mass/Vol] 33.9 30.5-36.0 g/dL Normal 10-20-19 20 [facility] (53362) MCV (RBC) [Entitic vol] 89.7 80.0-100.0 fL Normal 10-19 [facility] (61046) Platelet mean volume 9.4 9.0-12.7 fL Normal 0 [facility] (Bld) [Entitic vol] [place] (58345) Platelets (Bld) [#/Vol] 237 150-400 k/uL Normal 2019 [facility] (60064) RBC (Bld) [#/Vol] 4.27 3.90-5.20 m/uL Normal 10-20-2019 C [facility] (61760) WBC (Bld) [#/Vol] 9.60 3.70-11.00 k/uL Normal 10-20-2019 [facility] (48647) albumin/creat ratio on 2019-10-20 Albumin Urine Random 1026.8 mg/L Normal 0 [facility] (24874) Comment: Performed By: #### UACR #### [facility] [place], [place] [phone] Albumin/Creat Ratio 668 <30 mg/g High 10-20-2019 [facility] (36814) Comment: Result Comment: Adult Male a nd [...] 3(1), 1-150. Performed By: #### UACR #### [facility] [place], [place] [phone] Creatinine,Urine,Ran 153.7 20-300 mg/dL Normal 0 [facility] (24295) Comment: Performed By: #### UACR #### [facility] [place], [place] [phone] obsolete on 2019-09 OBSOLETE Refill (INTMWS) Normal 09-23-2019 [facility] ANA IVORY ([id number]) 1940 [facility] Date Time Provider Department ([id number]) 09/23/19 ALICIA BLOUNT INTMWS During your visit [...] notify patient. Florence Ribeiro Pss Clarence Berry, MASOUD.PAYMENT ANALYST 09/23/2019 10:04 AM Signed rx sent Allergies [...] Diarrhea METFORMIN 05/10/2011 6 - Diarrhea NEOSPORIN ([id number]-[id number]*08/31/2008 2 - Rash Comments: blisters PROTONIX (PANTOPRAZOLE) 01/13/2010 6 - Diarrhea RELAFEN (NABUMETONE) 03/22/2006 8 - GI Upset 11 - Vomiting ACTOS (PIOGLITAZONE HCL) 12/03/2016 7 - Swelling Date Reviewed: 09/15/2019 Reviewed by: Isabella (Rn) MANNY Kimble - Fully Assessed Reason for Visit: Refill Request [94] Visit Diagnosis: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, with long-term current use of insulin ([facility]) [E08.40, Z79.4] Order(s):gabapentin (NEURONTIN) 300 [...] surgical pathology on 2019-09-15 SURGICAL Normal 09-15-2019 [place] [facility] [place] Specimen originated from [facility] (79486) Specimen #: [id number] Submitting Physician: RUBIN LORENZO MD FINAL DIAGNOSIS [...] hybridization tests have been determined by [facility] ([facility]) in a manner consistent with CLIA requirements. One or more of these tests have not been cleared or approved by the FDA. [facility] is regula amando under CLIA as qualified [...] in one cassette. Gross examination performed at [facility], [address] [place] [address] J 09/16/2019 1:31:26 AM Date of Report: 09/17/2019 Date of Procedure: 09/15/2019 Date of Receipt: 09/15/2019 Submitted by: RUBIN LORENZO MD Location: W010 Diagnostic interpretation performed at [place] [address]. CLIA Number: [id number] pt ed on 2019-09-15 PT ED HNO ID: [id number] Normal 09-15-2019 [facility] Author: Isabella Billingsley) MANNY Kimble [place] ([id number]) Service: ? Author Type: Registered Nurse Type: [...] Department: AMBULATORY SURGERY PT ED HNO ID: [id number] Normal 09-15-2019 [facility] Author: Isabella Kimble RN [place] ([id number]) Service: ? Author Type: Registered Nurse Type: [...] nursing prog on NURSING PROG HNO ID: [id number] Normal 09-15-19 [facility] Author: Isabella Kimble RN [place] ([id number]) Service: ? Author Type: Registered Nurse Type: Nursing Progress Note Filed: 09/15/2019 9:40 AM Note Text: Patient did not experience a fall prior to discharge. Patient did not experience a burn prior to discharge. Isabella Kimble RN NURSING PROG HNO ID: [id number] Normal 09-15-19 [facility] Author: Isabella Kimble RN [place] ([id number]) Service: ? Author Type: Registered Nurse Type: Nursing Progress Note Filed: 09/15/2019 9:16 AM Note Text: Patient sitting up in bed tolerating snack and drink without problems. Isabella Kimble RN NURSING PROG HNO ID: [id number] Normal 09-15-19 [facility] Author: Isabella Kimble RN [place] ([id number]) Service: ? Author Type: Registered Nurse Type: Nursing Progress Note Filed: 09/15/2019 8:56 AM Note Text: Patient arrived to PACU, on left side, abdomen soft. Patient resting comfortably. Isabella Kimble RN NURSING PROG HNO ID: [id number] Normal 09-15-19 [facility] Author: Quiana Mcgovern RN [place] ([id number]) Service: Nursing Author Type: Registered Nurse Type: Nursing Progress Note Filed: 09/15/2019 8:46 AM Note Text: Patient did not experience a fall within the Intraoperative area. Patient did not experience a burn within the Intraoperative area. Quiana Mcgovern RN NURSING PROG HNO ID: [id number] Normal 09-15-19 [facility] Author: Isabella Kimble RN [place] ([id number]) Service: ? Author Type: Registered Nurse Type: [...] history physical on 2019-09-15 HISTORY HNO ID: [id number] Normal 09-15-2019 [place] PHYSICAL Author: Rubin Tejeda Service: Gastroenterology [place] Author Type: Physician ([id number]) Type: HANDP Filed: 09/15/2019 8:21 AM Note [...] C. difficile diarrhea 10/18/2011 - Cataract 04/17/2013 [facility], Dr. Dada Rodríguez. Mild cataract in L eye- no need for cataract surgery at this time. Continue to follow u p the cataract. 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 At thi s time, we anticipate [...] who had a nodule identified on a wi reening scan in the past due to [...] daily. 09/14/2019 at Unknown time Yes Insulin [place], Disposable, (EASY TOUCH) 31 gauge x 3/16 [...] at Unknown time Yes [facility] [place] [facility] (E08.40, Z79.4) Diabetes mellitus due [...] Refill (INTMWS) Normal 09-13-2019 Mann[facility] DIANELYSMARIELLAVINCENT Wheeler ([id number]) 1940 [facility] Time Provider Department ([id number]) 09/13/19 CLARENCE BERRY (LOLI) INTMWS During your [...] Diarrhea METFORMIN 05/10/2011 6 - Diarrhea NEOSPORIN ([id number]*08/31/2008 2 - Rash Comments: blisters PROTONIX (PANTOPRAZOLE) 01/13/2010 6 - Diarrhea RELAFEN (NABUMETONE) 03/22/2006 8 - GI Upset 11 - Vomiting ACTOS (PIOGLITAZONE HCL) 12/03/2016 7 - Swelling Date Reviewed: 08/08/2019 Reviewed by: Cintia Macias LPN - Fully Assessed Reason for Visit: Refill Request [94] Visit Diagnoses:Anxiety [F41.9] 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, with long-term current use of insulin ([facility]) [E08.40, Z79.4] Order(s):glimepiride (AMARYL) 2 [...] 09/14/19 progress on 2019-07 PROGRESS HNO ID: [id number] Normal 08-08-2019 [facility] Author: Alicia Blount [place] ([id number]) Service: ? Author Type: Physician Type: Progress [...] C. difficile diarrhea 10/18/2011 - Cataract 04/17/2013 [facility], Dr. Dada Rodríguez. Mild cataract in L eye- no need for cataract surgery at this time. Continue to follow u p the cataract. 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 At thi s time, we anticipate [...] re for assistance with chest tube to [facility]. Return to OPD on Sun11/18/14 [...] who had a nodule identified on a wi reening scan in the past due to [...] 180 days. Morning and bedtime - Insulin [place], Disposable, (EASY TOUCH) 31 gauge x 10/26 [...] E11.9 , Insulin: Yes - Blood-Glucose Meter (VidyoTOUCH ULTRA2) monitoring kit 1 Eac h as [...] and/or coordi nating care for the patient. Qmyh-lf-aiua time was at least 40 minutes. Alicia Blount MD cnov on 2019-08-08 CNOV Office Visit (INTMWS) Normal 08-08-20 19 [place] [facility] ANA IVORY ([id number]) 1940 [facility] Date Time Provider Department ([id number]) 08/08/19 1:00 PM ALICIA BLOUNT INTMWS During [...] C. difficile diarrhea 10/18/2011 - Cataract 04/17/2013 [facility], Dr. Dada johnson Mild cataract in L eye- no need for cataract surgery at this time. Continue to follow up the cat aract. 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 At thi s time, we anticipate that the patient will be discharged home once c linically stable. Plan: - Discuss needs with patient. - Collaborate with Case management to facilitate DC process - Will continue to evaluate during the post op period. - Desat study 11/14/14: patient will need home oxygen (2 L with exertion only) - Discharge home today with [facility] for assistance with [facility] tube to [facility]. Return to OPD on Sunday11/18/14 for [...] 180 days. Morning and bedtime - Insulin [place], Disposable, (EASY CARROL CH) 31 gauge x [...] counseling and/or coordinating care for the patient. Sncj-vz-dzzl time was at least 40 minutes. MD [...] Diarrhea METFORMIN 05/10/2011 6 - Diarrhea NEOSPORIN (MACIFKNN-VRDVAGNNNR-PS*08/31/2008 2 - Rash Comments: blisters PROTONIX (PANTOPRAZOLE) 01/13/2010 6 - Diarrhea RELAFEN (NABUMETONE) 03/22/2006 8 - GI Upset 11 - Vomiting ACTOS (PIOGLITAZONE HCL) 12/03/2016 7 - Swelling Date Reviewed: 08/08/2019 Reviewed by: Cintia Macias LPN - Fully Assessed Reason for Visit: Follow Up [171] Primary Visit Diagnosis: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, with long-term current use of insulin ([facility]) [E08.40, Z79.4] Other Visit Diagnoses:Pain, dental [K08.89] History of tooth extraction, unspecified edentulism class [K08.409] Closed fracture of tooth with routine healing, subsequent encounter [S02.5XXD] Hair thinning [L65.9] Comment:right side of head (same side that lays on) Essential hypertension [I10] Bladder irritability [N32.89] Nocturia [R35.1] Comment:improved with treatment per Yazmin Don. Continue present management. Order(s):HEMOGLOBIN A1C (POC) [9180516] Order #: [id number] pec. #:[id number] Cephalexin 250 mg tabTake 1 tablet by [...] ALBUMIN/CREAT RATIO RND UR [SQUACR] Order #: [id number] FUTU RE [] HYDROcodone-acetaminophen (NORCO) 5-325 mg [...] twice daily. (Dr Don) MISCELLANEOUS MED[employer] [facility] Ea* 0 08/08/2019 Class: Print RX [...] OBSOLETE Refill (INTMWS) Normal 07-23-2019 Mannie mancini [facility] ANA IVORY ([id number]) 1940 [facility] Date Time Provider Department ([id number]) 07/23/19 ALICIA BLOUNT INTMWS During your visit [...] printed as above. Please process accordingly . [facility] website checked and validated. All prescrip tions [...] Diarrhea METFORMIN 05/10/2011 6 - Diarrhea NEOSPORIN (MIDFLMEZ-MMWMGAPFSA-TM*08/31/2008 2 - Rash Comments: blisters PROTONIX (PANTOPRAZOLE) [...] OBSOLETE Refill (INTMWS) Normal 06-20-2019 Mannie mancini [facility] ANA IVORY ([id number]) 1940 [facility] Date Time Provider Department ([id number]) 06/20/19 ALICIA BLOUNT INTErisWS During your visit [...] Diarrhea METFORMIN 05/10/2011 6 - Diarrhea NEOSPORIN (JSSYLMRD-SJKGDNEIBE-DG*08/31/2008 2 - Rash Comments: blisters PROTONIX (PANTOPRAZOLE) [...] hosp on 2019-06-18 HOSP Patient:Ana Ivory 06-18 [facility] MRN: [id number] ([id number]) Height:5' 2.5(1.588 m) Weight:No patient weight recorded [...] cap gabapentin (NEURONTIN) 300 mg capsule Insulin [place], Disposable, (EASY TOUCH) 31 gauge x 3/16 [...] [G43.909] Recurrent bronchospasm [J98.09] 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 ([facility]) [I63.211] 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] Mouth dryness [R68.2] Hyperlipidemia [E78.5] Functional dyspepsia [K30] 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] Gastroesophageal reflux disease with esophagitis [K21.0] Vitamin D deficiency [E55.9] 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 Chelsy Vogel RN Progress Notes ([facility]): Nargis Miller Pss 09/04/2019 4:29 PM [...] history physical on 2019-06-18 HISTORY HNO ID: [id number] Normal 06-18-2019 [place] PHYSICAL Author: Mehdat Barrera [facility] Service: ? [place] Author Type: Nurse Practitioner ([id number]) Type: HANDP Filed: 06/18/2019 10:28 AM Note [...] reported above : Overactive bladder /interstitial cystitis. TECHNICAL PROJECT LEAD: Negative for abnormal vaginal bleeding, abnormal vagina [...] C. difficile diarrhea 10/18/2011 - Cataract 04/17/2013 [facility], Dr. Dada Rodríguez. Mild cataract in L eye- no need for cataract surgery at this time. Continue to follow u p the cataract. 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 At thi s time, we anticipate that the patient will be discharged home once cli nically stable. Plan: - Discuss needs with patient. - Collaborate [facility] Case management to facilitate DC process - Will continue to evalu ate during the post op period. - Desat study 11/14/14: patient will need home oxygen (2 L with exertion only) - Discharge home today with home ca re for assistance with chest tube to [facility]. Return to OPD on Sun11/18/14 [...] right eye - COLONOSCOP W/ OR W/O [facility] SPEC 10/31/2007 Colonoscopy - EGD W/O [facility] SPECIMEN W/BX 11/01/09 - EGD W/O [facility] SPECIMEN W/BX 11/23/11 - EGD W/O [...] and bedtime 180 capsule 1 - Insulin [place], Disposable, (EASY TOUCH) 31 gauge x 16 [...] with more than 50% of the total nwym-dh-ekjb t dinorah of the visit in counseling / coordination of care. Medhat Barrera RN APRN.NEMESIO eason on 2019-06-18 CNOV Office Visit ([facility]) Normal 06-18-20 19 [place] [facility] ANA IVORY ([id number]) 1940 [facility] Time Provider Department ([id number]) 06/18/19 9:20 AM MEDHAT BARRERA During your visit today, we recorded the following informati on about you: Pulse Blood pressure Weight 76/minute 124/74 58.5 kg Medhat Barrera RN BENCH REPAIR TECHNICIAN.MUSIC GRAPHER 06/18/2019 10:28 AM Signed Ana Wheeler Dianelys [...] esophagus, biopsy (B) - Cardiac mucosa with compounder sterile products alexander inflammation, negative for intestinal metaplasia. The [...] reported above : Overactive bladder /interstitial cystitis. TECHNICAL PROJECT LEAD: Negative for abnormal vaginal bleeding, abnormal vagina [...] C. difficile diarrhea 10/18/2011 - Cataract 04/17/2013 [facility], Dr. Dada johnson Mild cataract in L eye- no need for cataract surgery at this time. Continue to follow up the cat aract. 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 At thi s time, we anticipate that the patient will be discharged home once c linically stable. Plan: - Discuss needs with patient. - Collaborate with Case management to facilitate DC process - Will continue to evaluate during the post op period. - Desat study 11/14/14: patient will need home oxygen (2 L with exertion only) - Discharge home today with [facility] for assistance with chest tube to [...] and bedtime 180 capsule 1 - Insulin [place], Disposable, (EASY CARROL ) 31 gauge x [...] with more than 50% of the total hqif-ra-bplo time of the visit in counseling / coordination of care. Mehdat Barrera RN BENCH REPAIR TECHNICIAN.NEMESIO Barrera RN BENCH REPAIR TECHNICIAN.NEMESIO 06/18/2019 9:34 AM Signed See if Nexium [...] in that regard. Referring Provider: ALICIA BLOUNT [[id number]] Allergies As of Date: 06/18/2019 Noted Allergy [...] Diarrhea METFORMIN 05/10/2011 6 - Diarrhea NEOSPORIN ([id number]*08/31/2008 2 - Rash Comments: blisters PROTONIX (PANTOPRAZOLE) [...] DAILY (6 AM).Disp: 90 capsuleRfl: 3 EGD [[id number]] Order #: [id number] FUTURE COLONOSCOPY SCRN NOT HIGH RISK [[id number]] Order #: [id number] FUTURE Prescriptions as of 06/18/2019 Sig: [...] Normal 05-24-2019 [facility] ANA IVORY ([id number]) 1940 [facility] Time Provider Department ([id number]) 05/24/19 ALICIA BLOUNT INTErisWS During your visit [...] Diarrhea METFORMIN 05/10/2011 6 - Diarrhea NEOSPORIN ([id number]*08/31/2008 2 - Rash Comments: blisters PROTONIX (PANTOPRAZOLE) [...] Refill (INTMWS) Normal 05-08-2019 [facility] ANA IVORY ([id number]) 1940 [facility] Date Time Provider Department ([id number]) 05/08/19 ALICIA BLOUNT INTMWS During your visit today, we recorded the following informati on about you: Libertad Burdick [facility] 05/08/2019 4:11 PM Signed Patient has been [...] Diarrhea METFORMIN 05/10/2011 6 - Diarrhea NEOSPORIN ([id number]*08/31/2008 2 - Rash Comments: blisters PROTONIX (PANTOPRAZOLE) 01/13/2010 6 - Diarrhea RELAFEN (NABUMETONE) 03/22/2006 8 - GI Upset 11 - Vomiting ACTOS (PIOGLITAZONE HCL) 12/03/2016 7 - Swelling Date Reviewed: 04/25/2019 Reviewed by: Yulisa Bills LPN - Fully Assessed Reason for Visit: Refill Request [94] Visit Diagnoses: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, with long-term current use of insulin ([facility]) [E08.40, Z79.4] Chronic cough [R05] [...] [id number] 4. Body weight 59.42 kg 04-26-2020 [facility] ([id number]) BP Diastolic 60 mm[Hg] 04-26-2020 [facility] ([id number]) BP Systolic 124 mm[Hg] 04-26-2020 [facility] ([id number]) Pulse (Heart Rate) 64 /min 04-26-2020 [facility] ([id number]) Respiratory Rate 16 /min 04-26-2020 [facility] ([id number]) Encounters Date Type Reason Provider Location 03-26-2020 - Documentation External [facility] 03-26-2020 procedure Provider 03-26-2020 External External External-[facility] Correspondence Provider 04-26-2020 - Patient encounter Acute posttraumatic [facility] Cat Scan 04-26-2020 procedure headache (I-Stat) Comment: Radiology CT 04-26-2020 - Patient encounter Acute posttraumatic Clarence (Belt Press Operator) Int ernal 04-26-2020 procedure headache [facility] [place] Comment: Acute post-traumatic headach e, not intractable (Primary Dx); Facial pain; Blurry vision, left eye 04-13-2020 - Refill Secondary diabetes [facility] 04-13-2020 mellitus Comment: Refill Request 04-27-2020 - 04-27-2020 Telephone encounter Clarence (Belt Press Operator ) [facility] Comment: Results (CT) 04-26-2020 - 04-26-2020 Telephone encounter Fall [facility]ia [facility] Comment: Fall Procedures Procedure Name Date Provider Location Ct head/brain w/o 04-26-2020 Clarence (Belt Press Operator) [facility]inic contrast material ([id number]) Colonoscopy 09-15-2019 - [facility] 09-15-2019 ([id number]) Plan of Treatment Plan Description Date Location COLONOSCOPY COLONOSCOPY 09-15-2029 - [facility] 09-15-2029 ([id number]) COLORECTAL CANCER COLORECTAL CANCER 09-15-2029 [facility] inic SCREENING,SEE MODIFIER SCREENING,SEE MODIFIER ([id number]) ANNUAL PCP TEAM CHRONIC ANNUAL PCP TEAM CHRONIC 04-26-2021 - [facility] DISEASE VISIT DISEASE VISIT 04-26-2021 ([id number]) BP CONTROLLED (<130/80) BP CONTROLLED (<130/80) 04-26-2021 - [facility] 04-26-2021 ([id number]) DILATED RETINAL EXAM DILATED RETINAL EXAM 04-01-2021 - [facility] 04-01-2021 ([id number]) ANNUAL PCP TEAM CHRONIC ANNUAL PCP TEAM CHRONIC 01-26-2021 - [facility] DISEASE VISIT DISEASE VISIT 01-26-2021 ([id number]) URINE ALBUMIN:CREATININE URINE ALBUMIN:CREATININE 01-21-2021 - [facility] RATIO RATIO 01-21-2021 ([id number]) DIABETIC FOOT EXAM DIABETIC FOOT EXAM 10-23-2020 - [facility] 10-23-2020 ([id number]) SHINGRIX VACCINE (2 of SHINGRIX VACCINE (2 of 10-23-2020 - [facility] 3) 3) 10-23-2020 ([id number]) Comment: Postponed from 03/04/2008 (D eclined at this time) LDL CHOLESTEROL LDL CHOLESTEROL 10-19-2020 - [facility] 10-19-2020 ([id number]) DTAP,TDAP,TD (2 - Td) DTAP,TDAP,TD (2 - Td) 08-08-2020 - [facility] 08-08-2020 ([id number]) Comment: Postponed from 03/22/2016 (D eclined at this time) HBA1C HBA1C 07-23-2020 - [facility] 07-23-2020 ([id number]) BP CONTROLLED BP CONTROLLED 04-25-2020 - [facility] (<130/80) (<130/80) 04-25-2020 ([id number]) INFLUENZA (#1) INFLUENZA (#1) 2020 [facility] ([id number]) DILATED RETINAL EXAM DILATED RETINAL EXAM 03-05-2020 [facility] ([id number]) ADVANCE DIRECTIVE ADVANCE DIRECTIVE 09-25-2013 - [facility] in[facility] DISCUSSION DISCUSSION 09-25-2013 ([id number]) HEPATITIS C SCREENING HEPATITIS C SCREENING 1958 - [facility] 1958 ([id number]) no information [facility] (30286) Immunizations Vaccine Notes Status Date Location Influenza [...] - High Dose - Age seasonal, 04-25-2019 ([id number]) 65+ preservative-free Influenza Seasonal influenza, high dose (completed) 04-20-2018 - [facility] - High Dose - Age seasonal, 04-20-2018 ([id number]) 65+ preservative-free Influenza Seasonal influenza, high dose (completed) 05-17-2017 - [facility] - High Dose - Age seasonal, 05-17-2017 ([id number]) 65+ preservative-free Influenza Seasonal influenza, high dose (completed) 05-11-2016 - [facility] - High Dose - Age seasonal, 05-11-2016 ([id number]) 65+ preservative-free Influenza Seasonal influenza, high dose (completed) 05-12-2015 - [facility] - High Dose - Age seasonal, 05-12-2015 ([id number]) 65+ preservative-free Influenza Seasonal influenza, seasonal, (completed) 04-15-2020 - [facility] Inj Age 3+ injectable 04-15-2020 ([id number]) Influenza Seasonal influenza, seasonal, (completed) 05-13-2014 - [facility] Inj Age 3+ injectable 05-13-2014 ([id number]) Pneumococcal-13 Vac pneumococcal conjugate (completed) 09-07-2014 - [facility] Conjugate vaccine, 13 valent 09-07-2014 ([id number]) Pneumovax pneumococcal (completed) 09-05-2007 - [facility] polysaccharide vaccine, 09-05-2007 (441 95) 23 valent Tdap (Age 7+) tetanus toxoid, reduced (completed) 03-22-2006 - [facility] diphtheria toxoid, and 03-22-2006 (4419 5) acellular pertussis vaccine, adsorbed Zostavax zoster vaccine, live (completed) 01-08-2008 - [facility] 01-08-2008 ([id number]) Payers Payer Name Policy Number Location [employer] [id number] [facility] ([id number] 195) MEDICARE [id number] [facility] (44 195) The following information is from the original human readable contentNo Payer Records Found Social History Type Social History Date Location Description Tobacco smoking status Never smoker 01-08-2020 - [facility] NHIS 04-26-2020 ([id number]) Tobacco use and Never used 01-08-2020 [facility] exposure 04-26-2020 (36360) Alcohol intake Current drinker of 01-08-2020 [facility] alcohol (finding) 04-26-2020 (59866) Alcohol Comment 2-3 drinks/years 10-07-2014 - [facility] 10-07-2014 (75731) Sex Assigned At Not on file [facility] (23956) Exposure to SARS-CoV-2 Not sure [facility] (event) (66267) The following information is from the original [...] Overview: Ana Ivory is and lives in [place], [place]. At this time, we anticipate that [...] fo r assistance with chest tube to [facility]. Return to [facility] on Sunday11/18/[address] removal . Esophageal reflux 10/08/2014 10/08/2014 Cataract 04/17/2013 09/15/2016 Overview: [facility], Dr. Dada johnson Mild cataract in L [...] Overview: Ana Ivory is and lives in [place], [place]. At this time, we anticipate that [...] fo r assistance with chest tube to [facility]. Return to [facility] on Sunday11/18/[address] removal . Esophageal reflux 10/08/2014 10/08/2014 Cataract 04/17/2013 09/15/2016 Overview: [facility], Dr. Dada johnson Mild cataract [...] Overview: Ana Ivory is and lives in [place], [place]. At this time, we anticipate that [...] reflux 10/08/2014 10/08/2014 Cataract 04/17/2013 09/15/2016 Overview: [facility], Dr. Dada johnson Mild cataract in L [...] Overview: Ana Ivory is and lives in [place], [place]. At this time, we anticipate that [...] fo r assistance with chest tube to [facility]. Return to [facility] on Sunday11/18/[address] removal . Esophageal reflux 10/08/2014 10/08/2014 Cataract 04/17/2013 09/15/2016 Overview: [facility], Dr. 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 (Dr Don) [facility] [facility] (E08.40, Z79.4) Diabetes mellitus due [...] C. difficile diarrhea 10/18/2011 ? Cataract 04/17/2013 [facility], Dr. Dada Rodríguez. Mild cataract in L eye- no need for cataract surgery at this time. Continue to follow up the cataract. ? 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 Displacement of lumbar intervertebral disc without myelopathy ? DISPOSITION AND FOLLOW-UP 11/11/2014 Ana Ivory is and lives in [place], [place]. At this time, we anticipate that the patient will be discharged home once clinically stable. Plan: - Discuss needs with patient. - Collaborate with Case management to facilitate DC process - Will continue to evaluate during the post op period. - Desat study 11/14/14: patient will need home oxygen (2 L with exertion only) - [facility] [...] should be addressed right away. Clarence Berry APRN.PAYMENT ANALYST documented in this encounterCarolynn Macias ([employer]), [facility] - 04/26/2020 4:07 PM EDT Radiology [...] BASED ON THE PRIMARY CLINICAL RECORDS. [facility] provides no warranty or guarantee of the accuracy or completeness of information in this document. UNRECOGNIZED CONTENT PROVIDED BELOW FOR UNRECOGNIZED SECTION Source Comments In the event this information is protected by the Federal Confidentiality of Alcohol and Drug Abuse Patient Records regulations: The Federal rules restrict any use of the information to criminally investigate or prosecute any alcohol or drug abuse patient.[facility] the event this information is protected by the Federal Confidentiality of Alcohol and Drug Abuse Patient Records regulations: The Federal rules restrict any use of the information to criminally investigate or prosecute any alcohol or drug abuse patient.[facility] HospitalIn the event this information is protected by the Federal Confidentiality of Alcohol and Drug Abuse Patient Records regulations: The Federal rules restrict any use of the information to criminally investigate or prosecute any alcohol or drug abuse patient.[facility] HospitalIn the event this information is protected by the Federal Confidentiality of Alcohol and Drug Abuse Patient Records regulations: The Federal rules restrict any use of the information to criminally investigate or prosecute any alcohol or drug abuse patient.[facility] HospitalIn the event this information is protected by the Federal Confidentiality of Alcohol and Drug Abuse Patient Records regulations: The Federal rules restrict any use of the information to criminally investigate or prosecute any alcohol or drug abuse patient.[facility] HospitalIn the event this information is protected by the Federal Confidentiality of Alcohol and Drug Abuse Patient Records regulations: The Federal rules restrict any use of the information to criminally investigate or prosecute any alcohol or drug abuse patient.[facility] UNRECOGNIZED CONTENT PROVIDED BELOW FOR UNRECOGNIZED SECTION [...] in the L eye. Appt scheduled with NATURAL RESOURCE OFFICER for today. Harlan Zarate LPN documented in [...] DATE CREATED AUTHOR AUTHOR'S ORGANIZATIO N 04/27/2020 [facility]
== END 2020-01-03 12:25 | disposition home or self-care (01) | DRG 66 ==
LOC: ED 13:14 → PCU 15:27
PROVIDERS: Nurse Practitioner Family; Admitting Provider Internal Medicine; Emergency Provider Emergency Medicine; PCP Internal Medicine; Visit Provider Internal Medicine
DX: I63.9 Cerebral infarction, unspecified (principal); D38.1 Neoplasm of uncertain behavior of trachea, bronchus and lung; E11.9 Type 2 diabetes mellitus without complications; R27.8 Other lack of coordination; R26.81 Unsteadiness on feet; F32.9 Major depressive disorder, single episode, unspecified; F41.9 Anxiety disorder, unspecified; E78.5 Hyperlipidemia, unspecified; J47.9 Bronchiectasis, uncomplicated; R90.82 White matter disease, unspecified; I65.21 Occlusion and stenosis of right carotid artery; I10 Essential (primary) hypertension; G43.909 Migraine, unspecified, not intractable, without status migrainosus; F40.240 Claustrophobia; Z79.4 Long term (current) use of insulin; Z80.0 Family history of malignant neoplasm of digestive organs; Z80.1 Family history of malignant neoplasm of trachea, bronchus and lung; Z82.49 Family history of ischemic heart disease and other diseases of the circulatory system; Z86.73 Personal history of transient ischemic attack (TIA), and cerebral infarction without residual deficits; Z90.2 Acquired absence of lung [part of]; Z66 Do not resuscitate
CPT/HCPCS: 36415; 70450; 70496; 70498; 70549; 70551; 71045; 80048; 80061; 80076; 81001; 82962; 83036; 84443; 84484; 85025; 85610; 85730; 87086; 93005; 93306; 94762; 97116; 97162; 97166; 99251; 99285; A9575; J7030; Q9957; Q9967; A4216; G0463; J2405

== ENCOUNTER → 2020-03-16 14:57 | Outpatient (CLI) | payer MEDICARE, OTHER, SELFPAY ==
[2020-03-03 13:09] VITALS: BMI 24.3
[2020-03-16 16:11] LABS: Vitamin B12 580 pg/mL (211-911)
[2020-03-18 16:08] LABS: Free Kappa Light Chains 21.5 mg/L (3.3-19.4); Free Lambda Light Chains 12.5 mg/L (5.7-26.3)
== END ==
PROVIDERS: PCP Internal Medicine; Referring Provider Psychiatry & Neurology Neurology; Visit Provider Psychiatry & Neurology Neurology
DX: G62.9 Polyneuropathy, unspecified (principal)
CPT/HCPCS: 36415; 82607; 82746; 83883

== ENCOUNTER → 2020-03-29 13:01 | Outpatient (CLI) | payer MEDICARE, OTHER, SELFPAY ==
[2020-03-18 15:19] VITALS: BMI 24.3
[2020-03-31 06:12] LABS: Albumin 3.7; Alpha-1-Globulins 0.2; Gamma Globulin 0.8; Immunoglobulin A 319; Immunoglobulin G 784; Immunoglobulin M 95; PROEL- TOTAL PROTEIN 6.8
== END ==
PROVIDERS: PCP Internal Medicine; Referring Provider Psychiatry & Neurology Neurology; Visit Provider Psychiatry & Neurology Neurology
DX: G62.9 Polyneuropathy, unspecified (principal)
CPT/HCPCS: 36415; 82784; 84165; 86334

== ENCOUNTER → 2020-03-30 10:23 | Outpatient (CLI) | payer MEDICARE, OTHER, SELFPAY ==
[2020-03-18 15:19] VITALS: BMI 24.3
[2020-03-30 07:54] VITALS: BMI 24.3
== END ==
PROVIDERS: PCP Internal Medicine; Referring Provider Psychiatry & Neurology Neurology; Visit Provider Psychiatry & Neurology Neurology
DX: Z46.89 Encounter for fitting and adjustment of other specified devices (principal)
CPT/HCPCS: 86335; 94667

== ENCOUNTER → 2020-05-27 14:23 | Outpatient (CLI) | payer MEDICARE, OTHER, SELFPAY ==
[2020-05-27 16:41] LABS: Thyroid Stim Hormone (TSH) 3.46 uIU/mL (0.358-3.74)
== END ==
PROVIDERS: Psychiatry & Neurology Neurology
DX: R94.6 Abnormal results of thyroid function studies (principal)
CPT/HCPCS: 36415; 84443

== ENCOUNTER → 2020-06-11 10:14 | Outpatient (CLI) | payer MEDICARE, OTHER, SELFPAY ==
[2020-05-17 11:47] VITALS: BMI 24.1
--- NOTE | 2020-06-11 10:14 | MRI_ITS ---
STUDY: MRI CERVICAL SPINE WITHOUT CONTRAST REASON FOR EXAM: Female, 80 years old. Gait disorder,imbalance. Hx of stroke TECHNIQUE: Standardized fat and water weighted pulse sequences were obtained in the sagittal and axial planes. COMPARISON: None FINDINGS: Normal foramen magnum and brainstem-cervical cord junction. Normal craniovertebral junction. Normal anterior atlantoaxial articulation. Normal odontoid process. Normal cervical lordosis. Normal vertebral bodies and posterior osseous elements. C2-3: Normal endplates. Normal disc height, signal and morphology. Normal central canal and intervertebral neural foramina. C3-4: Mild broad disc osteophyte complex produces mild spinal stenosis but no neural foraminal stenosis. C4-5: Moderate broad disc osteophyte complex produces moderate spinal stenosis with abutment the central spinal cord. No neural foraminal stenosis. C5-6: Mild broad disc osteophyte complex produces mild spinal stenosis but no neural foraminal stenosis. C6-7: Normal endplates. Normal disc height, signal and morphology. Normal central canal and intervertebral neural foramina. C7-T1: Normal endplates. Normal disc height, signal and morphology. Normal central canal and intervertebral neural foramina. Normal cervical cord. Normal visualized soft tissue structures. MRI/Spine Cervical (Routine) IMPRESSION: Multilevel degenerative changes, as described above. Electronically Signed: Fransisco Cardenas MD at 13:09 EDT Tel , Service support ,
== END ==
PROVIDERS: PCP Internal Medicine; Referring Provider Psychiatry & Neurology Neurology; Visit Provider Psychiatry & Neurology Neurology
DX: R26.9 Unspecified abnormalities of gait and mobility (principal)
CPT/HCPCS: 72141

== ENCOUNTER → 2020-12-14 08:50 | Outpatient (CLI) | payer MEDICARE, OTHER, SELFPAY ==
[2020-10-11 11:18] VITALS: BMI 24.5
--- NOTE | 2020-12-14 08:52 | CDU_ITS ---
Reason For Study: R carotid stenosis Rt. Velocities/BP Lt. Velocities/BP Prox CCA 89.1/20.0 cm/sec. Prox CCA 77.7/17.7 cm/sec. Mid CCA 73.4/14.7 cm/sec. Mid CCA 79.0/15.1 cm/sec. Dist CCA 59.5/11.2 cm/sec. Dist CCA 85.6/17.7 cm/sec. Prox ICA 94.7/25.6 cm/sec. Prox ICA 77.7/20.3 cm/sec. Mid ICA 94.7/20.3 cm/sec. Mid ICA 92.1/25.6 cm/sec. Dist ICA 101.2/23.0 cm/sec. Dist ICA 107.7/28.2 cm/sec. Rt. ICA/CCA = 1.4. Lt. ICA/CCA = 1.4. Prox ECA 82.9/6.0 cm/sec. Prox ECA 84.2/9.9 cm/sec. Rt. Vert. 55.6 cm/sec. Lt. Vert. 52.9/11.2 cm/sec. Right Extracranial There is intimal thickening but no significant atherosclerotic plaque noted in the right common carotid artery. There is heterogeneous, irregular atherosclerotic plaque noted in the right internal carotid artery. There is intimal thickening but no significant atherosclerotic plaque noted in the right external carotid artery. Antegrade flow is noted in the right vertebral artery. Left Extracranial There is intimal thickening but no significant atherosclerotic plaque noted in the left common carotid artery. There is heterogeneous, irregular atherosclerotic plaque noted in the left internal carotid artery. There is intimal thickening but no significant atherosclerotic plaque noted in the left external carotid artery. Antegrade flow is noted in the left vertebral artery. Procedure Carotid Duplex 13203. This is a Carotid Duplex examination using B-mode, color flow and specral Doppler. The exam was diagnostic. Exam performed in department. VL/Carotid Duplex Ultrasound Interpretation Summary Irregular calcific plaque of the proximal right internal carotid artery with le ss than 50% stenosis Less than 50% stenosis right external carotid artery Focal area of calcific plaque left proximal internal carotid artery with less t salazar 50% stenosis Less than 50% stenosis left external carotid artery Patent antegrade vertebral arteries bilaterally Ordering Physician: Tess Vides Performed By: Jonah Rouse RVT and Student
== END ==
PROVIDERS: PCP Internal Medicine; Referring Provider Nurse Practitioner Family; Visit Provider Nurse Practitioner Family
DX: I65.21 Occlusion and stenosis of right carotid artery (principal)
CPT/HCPCS: 93880

== ENCOUNTER → 2021-03-07 10:12 | Outpatient (CLI) | payer MEDICARE, OTHER, SELFPAY ==
[2021-02-21 07:43] VITALS: BMI 25.9
[2021-03-08 16:09] LABS: Free Kappa Light Chains 23.1 mg/L (3.3-19.4); Free Lambda Light Chains 17.4 mg/L (5.7-26.3)
== END ==
PROVIDERS: PCP Internal Medicine; Visit Provider Nurse Practitioner Family
DX: G62.9 Polyneuropathy, unspecified (principal)
CPT/HCPCS: 36415; 83883

== ENCOUNTER → 2021-03-10 15:46 | Outpatient (CLI) | payer MEDICARE, OTHER, SELFPAY ==
[2021-02-21 07:43] VITALS: BMI 25.9
== END ==
PROVIDERS: PCP Internal Medicine; Visit Provider Nurse Practitioner Family
DX: G62.9 Polyneuropathy, unspecified (principal)
CPT/HCPCS: 86335

== ENCOUNTER → 2021-05-10 09:37 | Outpatient (CLI) | payer MEDICARE, OTHER, SELFPAY | PROVIDERS: PCP Internal Medicine; Referring Provider Nurse Practitioner Acute Care; Visit Provider Nurse Practitioner Acute Care | DX: J02.9 Acute pharyngitis, unspecified (principal) | CPT/HCPCS: 87635; C9803; U0005; U0003 ==

== ENCOUNTER → 2021-05-30 13:09 | Outpatient (CLI) | payer MEDICARE, OTHER, SELFPAY ==
--- NOTE | 2021-05-30 13:45 | MRI_ITS ---
STUDY: MRI RIGHT ANKLE WITHOUT CONTRAST REASON FOR EXAM: Medial right ankle pain, posterior tibialis tendinitis. TECHNIQUE: Standardized fat and water weighted pulse sequences were obtained in all 3 orthogonal planes. COMPARISON: None. FINDINGS: There is edema in the subcutis adipose space, greatest at the medial aspect. There is a very small volume of fluid in the retromalleolar and submalleolar posterior tibialis tendon sheath (T2 axial images 10, 11, 18, 19). The posterior tibialis tendon is morphologically normal. Normal flexor digitorum longus tendon. Normal flexor hallucis longus tendon. Normal peroneus longus and brevis tendons. Normal tibialis anterior tendon. Normal extensor hallucis longus tendon. Normal extensor digitorum longus tendons. Normal Achilles tendon and teno-osseous insertion. Normal plantar fascia. Normal plantar calcaneal tubercles. Normal intrinsic muscles of the rearfoot. Normal distal tibiofibular syndesmotic ligamentous complex. Normal lateral ligamentous complex. Normal subtalar ligaments and sinus tarsi. Normal deltoid ligamentous complexes. Normal plantar calcaneonavicular (spring) ligament. Normal tibiotalar articulation. Normal talar dome. Normal subtalar articulations. Normal talonavicular articulation. Normal calcaneocuboid articulation. Normal navicular-cuneiform articulations. MRI/Lower Ext Joint Only (Routine) IMPRESSION: Very mild posterior tibialis tenosynovitis without demonstrated tendon tear. Electronically Signed: Joseluis Sanhcez MD at 8:47 EDT Tel , Service support ,
== END ==
PROVIDERS: PCP Internal Medicine; Referring Provider Podiatrist; Visit Provider Podiatrist
DX: M76.821 Posterior tibial tendinitis, right leg (principal)
CPT/HCPCS: 73721

== ENCOUNTER 2021-08-30 08:32 | Outpatient (CLI) | payer MEDICARE, OTHER, SELFPAY ==
--- NOTE | 2021-08-30 12:55 | PFTCOMP_ITS ---
COMPLETE PULMONARY FUNCTION TEST INTERPRETATION Brief HPI: Patient is a 81 year old female, currently under the care of myself, who presents to [facility] for complete pulmonary function tests secondary to diagnosis of bronchiectasis. Respiratory therapist reports good effort and reproducible results. Interpretation: Forced expiration spirometry shows a moderate large airways obstructive ventilatory defect with an FEV1 of 67% predicted. There is no significant bronchodilator response by strict ATS criteria. Spirograms are of good quality and plateau slowly, indicating slowly emptying areas of the lungs. The respiratory flow volume loop shows decreased expiratory flow rates at all lung volumes consistent with airway obstruction. Lung volumes by body plethysmography show a normal total lung capacity at 3.73 L, 86% predicted. All other lung volumes are within normal limits. Diffusion capacity by carbon monoxide is decreased at 49% predicted. The airway resistance is elevated. Compared to previous pulmonary function tests from 09/16/2019, there has been no significant change. Impression: Irreversible moderate large airways obstructive ventilatory defect with a symmetric adduction diffusion capacity, but little change compared to 2019
== END 2021-08-30 23:59 | disposition short-term general hospital (02) ==
LOC: PSN 08:35
PROVIDERS: PCP Internal Medicine; Referring Provider Internal Medicine Critical Care Medicine; Visit Provider Internal Medicine Critical Care Medicine
DX: J47.9 Bronchiectasis, uncomplicated (principal); Z90.2 Acquired absence of lung [part of]
CPT/HCPCS: 94060; 94726; 94729

== ENCOUNTER 2021-09-01 07:58 | Outpatient (CLI) | payer MEDICARE, OTHER, SELFPAY ==
[2021-09-01 08:15] VITALS: PULSE 79; PULSE 81; PULSE 83; PULSE 86; PULSE 91; PULSE 92; PULSE 93; O2SAT 95; O2SAT 97; O2SAT 98
--- NOTE | 2021-09-01 17:00 | PCM.PSN.6M ---
PSN 6 Minute Walk Test 6 Minute Walk Test 6 Minute Walk Test: 6 Minute Walk Test PSN:6-Minute Walk Test Start: 09/01/21 08:25 Freq: Status: Active Protocol: RESP.6MINW Document 09/01/21 08:15 [facility] (Rec: 09/01/21 08:29 [facility] [id number]) 6 Minute Walk Test Date Performed 09/01/21 Time Performed 08:15 Height 5 ft 2 in Weight: 67.585 kg Weight in Pounds 149.[address]: Reji Bran Assistive device used: None Pre-test Oxygen Delivery Method Room Air Pulse Ox (%) 97 Pulse Rate (60-100 beats/min) 81 Dyspnea Ileana Scale (0-10) 0 Exertion Ileana Scale (6-20) 6 1st minute Oxygen Delivery Method Room Air Pulse Ox (%) 98 Pulse Rate (60-100 beats/min) 83 2nd minute Oxygen Delivery Method Room Air Pulse Ox (%) 97 Pulse Rate (60-100 beats/min) 86 3rd minute Oxygen Delivery Method Room Air Pulse Ox (%) 95 Pulse Rate (60-100 beats/min) 91 4th minute Oxygen Delivery Method Room Air Pulse Ox (%) 95 Pulse Rate (60-100 beats/min) 91 5th minute Oxygen Delivery Method Room Air Pulse Ox (%) 95 Pulse Rate (60-100 beats/min) 92 6th minute Oxygen Delivery Method Room Air Pulse Ox (%) 97 Pulse Rate (60-100 beats/min) 93 Dyspnea Ileana Scale (0-10) 2 Exertion Ileana Scale (6-20) 11 Post-test Oxygen Delivery Method Room Air Pulse Ox (%) 98 Pulse Rate (60-100 beats/min) 79 Full Laps Walked 17 Partial Lap, Number of Tiles Walked 39 Total Distance Walked (ft) 1042 Interpretation Interpretation: The patient was able to ambulate 1042 feet over the course of 6 minutes on room air with no assistive devices or breaks. The patient experienced no significant desaturation or tachycardia during testing. These findings are consistent with a normal walking oximetry. Recommendations Recommendations: No supplemental oxygen is indicated at this time.
== END 2021-09-01 23:59 | disposition short-term general hospital (02) ==
LOC: PSN 08:00
PROVIDERS: PCP Internal Medicine; Referring Provider Internal Medicine Critical Care Medicine; Visit Provider Internal Medicine Critical Care Medicine
DX: J47.9 Bronchiectasis, uncomplicated (principal); Z90.2 Acquired absence of lung [part of]
CPT/HCPCS: 94618

== ENCOUNTER 2021-10-24 09:51 | Outpatient (CLI) | payer MEDICARE, OTHER, SELFPAY ==
--- NOTE | 2021-10-24 09:56 | VDLE_ITS ---
Reason For Study: Pain and swelling RIGHT LEFT CFV is compressible, spontaneous, phasic, CFV is compressible, spontaneous, phasic, competent and demonstrates normal competent, and demonstrates normal augmentation. augmentation. FV is compressible, spontaneous, phasic, FV is compressible, spontaneous, phasic, competent and demonstrates normal competent and demonstrates normal augmentation. augmentation. POP V is compressible, spontaneous, phasic, POP V is compressible, spontaneous, phasic, competent and demonstrates normal competent and demonstrates normal augmentation. augmentation. T/P Trunk is compressible. T/P Trunk is compressible. PTV is compressible. PTV is compressible. RT PerV is compressible. LT PerV is compressible. SFJ is competent and measures 0.58 x 0.69 cm. SFJ is competent and measures 0.63 x 0.67 cm. GSV proximal thigh measures 0.25 x 0.25 cm. GSV proximal thigh measures 0.17 x 0.18 cm. GSV at knee measures 0.18 x 0.19 cm. GSV at knee measures 0.21 x 0.22 cm. GSV is competent throughout. GSV is competent throughout. SSV proximal calf is competent and measures SSV proximal calf is competent and measures 0.09 x 0.10 cm. 0.09 x 0.11 cm. Procedure This is a venous duplex using B-mode, color flow and spectral Doppler. Exam performed in department. Patient was scanned in reverse Trendelenburg position during reflux assessment. A preliminary report was called and/or faxed to [facility]. VL/Venous Duplex US - Rick Extrem Interpretation Summary Deep veins of the lower extremities are bilaterally patent and compressible seg mentally. There is no evidence of deep vein thrombosis on either side. Valvular competence appears in tact within the proximal deep venous systems bilaterally. The great saphenous veins appear bila terally patent and compressible segmentally. Sapheno-femoral junctions are bilaterally competent . Valvular competence appears to be intact segmentally within the great saphenous veins bilaterally. Small saphenous veins are patent and competent bilaterally. Ordering Physician: Dada Do Referring Physician: Emily Yun M.D. Performed By: Barbara Lan RVT
== END 2021-10-24 23:59 | disposition home or self-care (01) ==
LOC: CVS 09:52
PROVIDERS: PCP Internal Medicine; Referring Provider Podiatrist; Visit Provider Podiatrist
DX: M79.89 Other specified soft tissue disorders (principal); M79.604 Pain in right leg; M79.605 Pain in left leg
CPT/HCPCS: 93970

== ENCOUNTER → 2022-08-09 | Outpatient (CLI) | payer MEDICARE, OTHER, SELFPAY ==
--- NOTE | 2022-08-11 08:49 | PFT ---
INTRODUCTION: The patient is an 82-year-old female that presents for pulmonary function studies secondary to a diagnosis of dyspnea. Respiratory therapy reported good patient effort. Bronchodilators were used during testing. INTERPRETATION: Forced expiration spirometry demonstrates the presence of a mild large airways obstructive ventilatory defect. There was no significant response to aerosolized bronchodilators. Body plus tomography was performed and reveals lung volumes to be within normal limits. Diffusing capacity by single breath CO is reduced at 57% of predicted. IMPRESSION: Irreversible mild obstructive ventilatory impairment with disproportionate reduction in diffusing capacity.
== END | disposition home or self-care (01) ==
PROVIDERS: PCP Internal Medicine; Visit Provider Nurse Practitioner Acute Care
DX: R06.00 Dyspnea, unspecified (principal)
CPT/HCPCS: 94060; 94726; 94729

== ENCOUNTER → 2022-08-15 | Outpatient (CLI) | payer MEDICARE, OTHER, SELFPAY ==
[2022-08-15 13:00] VITALS: PULSE 80; PULSE 83; PULSE 85; PULSE 88; PULSE 89; PULSE 95; O2SAT 92; O2SAT 93; O2SAT 94; O2SAT 96; O2SAT 97
--- NOTE | 2022-08-15 14:06 | WT_ITS ---
PSN 6 Minute Walk Test 6 Minute Walk Test 6 Minute Walk Test: 6 Minute Walk Test PSN:6-Minute Walk Test Start: 08/15/22 13:19 Freq: Status: Active Protocol: [id number].6MINW Document 08/15/22 13:00 (Rec: 08/15/22 13:23 [id number]) 6 Minute Walk Test Date Performed 08/15/22 Time Performed 13:00 Height 5 ft 2 in Weight: 71.668 kg Weight in Pounds 158.[address]: Johana Cat [employer] FIO2 (% Oxygen) 21 Assistive device used: None Pre-test Oxygen Delivery Method Room Air Pulse Ox (%) 97 Pulse Rate (60-100 beats/min) 80 Dyspnea Lieana Scale (0-10) 0 Exertion Ileana Scale (6-20) 6 1st minute Oxygen Delivery Method Room Air Pulse Ox (%) 96 Pulse Rate (60-100 beats/min) 85 2nd minute Oxygen Delivery Method Room Air Pulse Ox (%) 92 Pulse Rate (60-100 beats/min) 88 3rd minute Oxygen Delivery Method Room Air Pulse Ox (%) 93 Pulse Rate (60-100 beats/min) 88 4th minute Oxygen Delivery Method Room Air Pulse Ox (%) 93 Pulse Rate (60-100 beats/min) 88 5th minute Oxygen Delivery Method Room Air Pulse Ox (%) 92 Pulse Rate (60-100 beats/min) 95 6th minute Oxygen Delivery Method Room Air Pulse Ox (%) 94 Pulse Rate (60-100 beats/min) 89 Post-test Oxygen Delivery Method Room Air Pulse Ox (%) 97 Pulse Rate (60-100 beats/min) 83 Dyspnea Ileana Scale (0-10) 3 Exertion Ileana Scale (6-20) 8 Full Laps Walked 14 Partial Lap, Number of Tiles Walked 2 Total Distance Walked (ft) 828 Interpretation Interpretation: The patient was able to ambulate 828 feet over the course of 6 minutes on room air with no assistive devices or breaks. The patient did experience significant desaturation from a baseline of 97% to as low as 92%, but no significant tachycardia was noted. These findings are consistent with a respiratory limitation exercise tolerance. Recommendations Recommendations: No supplemental oxygen is indicated at this time. However, patient will need to be followed closely given level of desaturation.
== END | disposition home or self-care (01) ==
LOC: PSN 13:02
PROVIDERS: PCP Internal Medicine; Referring Provider Nurse Practitioner Acute Care; Visit Provider Nurse Practitioner Acute Care
DX: R06.00 Dyspnea, unspecified (principal)
CPT/HCPCS: 94618

== ENCOUNTER → 2022-08-18 | Outpatient (CLI) | payer MEDICARE, OTHER, SELFPAY ==
--- NOTE | 2022-08-18 12:53 | ECHOCS_ITS ---
Reason For Study: DYSPNEA Procedure This was a 2D Doppler, Color Flow transthoracic echocardiogram. Exam performed in department. Left Ventricle Normal LV size. The estimated ejection fraction is 70 %. Unable to assess diastolic dysfunction. No regional wall motion abnormalities noted. Right Ventricle Normal RV size. Normal systolic function. Atria Normal left atrium. Normal right atrium. No doppler evidence for ASD. Mitral Valve There is moderate mitral annular calcification. There is no mitral valve stenosis. Trivial mitral valve insufficiency. Tricuspid Valve There is no tricuspid stenosis. Trivial tricuspid valve insufficiency. Pulmonary artery systolic pressure is 30 mmHg. Aortic Valve Trisinus/trileaflet aortic valve. There is no aortic stenosis. No aortic valve insufficiency. Pulmonic Valve There is no pulmonic valvular stenosis. No pulmonic valve insufficiency. Great Vessels Normal aortic root. Pericardium/Pleural No pericardial effusion. MMode/2D Measurements & Calculations LVIDd: 3.5 cm IVSd: 1.3 cm Ao root diam: 2.9 cm LVIDs: 2.0 cm LVPWd: 1.7 cm RVDd: 2.6 cm FS: 44.3 % LAV(MOD-sp4): 31.4 ml LVAd ap4: 18.6 cm2 SV(MOD-sp4): 28.0 ml LVLd ap4: 6.5 cm EDV(MOD-sp4): 44.6 ml EDV(sp4-el): 45.3 ml LVAs ap4: 9.4 cm2 LVLs ap4: 4.9 cm ESV(MOD-sp4): 16.6 ml ESV(sp4-el): 15.5 ml EF(MOD-sp4): 62.7 % EF(sp4-el): 65.7 % SV(sp4-el): 29.8 ml LA A4 area: 14.5 cm2 LA dimension(2D): 3.7 cm RA A4 area: 10.0 cm2 Time Measurements MV dec time: 0.21 sec Doppler Measurements & Calculations MV E max arun: 93.0 cm/sec Lat Peak E' Arun: 7.5 cm/sec Med Peak E' Arun: 4.2 cm/sec MV A max arun: 114.2 cm/sec E/E' lat: 12.4 E/E' med: 22.2 MV E/A: 0.81 MV V2 max: 113.5 cm/sec Ao V2 max: 126.2 cm/sec MV max P.2 mmHg MV dec slope: 449.6 cm/sec2 Ao max P.4 mmHg MV V2 mean: 76.1 cm/sec Ao V2 mean: 88.8 cm/sec MV mean P.5 mmHg Ao mean P.5 mmHg MV V2 VTI: 31.4 cm Ao V2 VTI: 31.8 cm AV (velocity ratio): 0.97 LV V1 max: 128.8 cm/sec PA V2 max: 90.3 cm/sec TR max arun: 240.9 cm/sec LV V1 max P.6 mmHg PA V2 mean: 76.9 cm/sec TR max P.2 mmHg LV V1 mean P.5 mmHg LV V1 mean: 88.0 cm/sec LV V1 VTI: 31.0 cm ECHO/Echo Complete W/ Contrast Interpretation Summary The estimated ejection fraction is 70 %. Trivial mitral valve insufficiency. Ordering Physician: Johana Cat Referring Physician: Emily Yun M.D. Performed By: Emma Givens RCS
== END | disposition home or self-care (01) ==
LOC: CVS 12:51
PROVIDERS: PCP Internal Medicine; Visit Provider Nurse Practitioner Acute Care
DX: R06.00 Dyspnea, unspecified (principal)
CPT/HCPCS: 93306; Q9957; A4216; C8929

== ENCOUNTER 2023-06-10 16:58 | Inpatient (IN) | payer MEDICARE, OTHER, SELFPAY ==
[2023-06-10 16:59] VITALS: BP 164/82; PULSE 130; RESP 19; TEMP 36.9; O2SAT 93; BMI 27.1
--- NOTE | 2023-06-10 17:40 | EKG12_ITS ---
Test Reason : WEAKNESS Blood Pressure : / mmHG Vent. Rate : 107 BPM Atrial Rate : 107 BPM P-R Int : 160 ms QRS Dur : 084 ms QT Int : 372 ms P-R-T Axes : 059 -21 056 degrees QTc Int : 496 ms Sinus tachycardia Otherwise normal ECG Confirmed by RONDA SEPULVEDA, SIDDHARTHA ([id number]), photo editor HUBER HAMILTON ([id number]) on 06/12/2023 11:57:17 AM Referred By: Confirmed By:SIDDHARTHA BOND MD
--- NOTE | 2023-06-10 17:43 | EX.ED.DYSGE1 ---
HPI History of Present Illness Chief Complaint: Weakness Narrative Narrative: Patient is a 83-year-old female who is presenting to the ER with chief complaint of multiple complaints. Daughter is at bedside. Patient arrived by EMS. Patient was just recently diagnosed with UTI, patient was prescribed Macrobid and she took 1 tablet on Sunday but she had episode of emesis where she was not able to keep it in. Patient was only taking 1 Macrobid yesterday. Patient has been able to keep liquids in today, she had nausea and vomiting on Sunday and today. Patient is also having pain to her left anterior ta with unknown reason. She has no trauma, no pain, no contusion that she is aware of. Patient does have some small varicosities to left anterior ta, but unknown reason why she is having left anterior ta pain with no injury. She has no swelling or ecchymosis to the area. Patient has mild frontal headache, no neck pain. Patient has had chills, no fever. No chest pain or shortness of breath. Patient has suprapubic discomfort, no flank pain, no back pain. Patient has left anterior ta pain for unknown reason, no injury. No fall, no ecchymosis to the area. [facility] Medical History Accelerated essential hypertension Acute chest pain Acute gastritis Anxiety C. 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 disease Chronic cough Depression Enlargement of lymph nodes Esophagitis Essential (primary) hypertension Fatigue GERD (gastroesophageal reflux disease) History of ischemic stroke IBS (irritable bowel syndrome) Macular degeneration Migraine Migraine without aura, not intractable, without status migrainosus Overweight (BMI 25.0-29.9) Restless legs Home Medications cholecalciferol (vitamin D3) 25 mcg (1,000 unit) tablet 1,000 unit PO DAILY supplement 03/13/17 [History Last Taken 01/01/20] metoprolol succinate 200 mg tablet,extended release 24 hr 200 mg PO DAILY heart 03/13/17 [History Last Taken 01/01/20] lorazepam 1 mg tablet 0.5 mg PO DAILY 08/28/18 [History Last Taken 01/01/20] esomeprazole magnesium 40 mg capsule,delayed release 40 mg PO DAILY gerd 01/01/20 [History Last Taken 01/01/20] aspirin 81 mg chewable tablet 81 mg PO DAILY@0800 ##30 01/03/20 [Rx Last Taken Unknown] PEP device #1 ea 03/30/20 [Rx Last Taken Unknown] cranberry 500 mg capsule 500 mg PO BID 03/15/21 [History Last Taken Unknown] fesoterodine 4 mg tablet,extended release 24 hr (Toviaz) 8 mg PO DAILY 10/10/21 [History Last Taken Unknown] pen needle, diabetic 32 gauge x 1/4 (BD Ultra-Fine Micro Pen Needle) #450 ea 12/14/21 [Rx Last Taken Unknown] blood sugar diagnostic (Sprig Toysuch Verio test strips) #100 ea 12/25/22 [Rx Last Taken Unknown] cephalexin 250 mg capsule 250 mg PO QHS 02/06/23 [History Last Taken Unknown] pyridoxine (vitamin B6) 250 mg tablet 250 mg PO DAILY 02/06/23 [History Last Taken Unknown] insulin aspart U-100 100 unit/mL (3 mL) subcutaneous pen (Novolog FlexPen U-100 Insulin aspart) 34 unit subcut BREAKFAST 03/05/23 [History Last Taken Unknown] insulin glargine 100 unit/mL (3 mL) subcutaneous pen (Lantus Solostar U-100 Insulin) 12 unit subcut QHS 03/05/23 [History Last Taken Unknown] albuterol sulfate 90 mcg/actuation aerosol inhaler 2 puff inhalation Q6H PRN shortness of breath or wheezing #6.7 grams 03/07/23 [Rx Last Taken Unknown] empagliflozin 25 mg tablet (Jardiance) 25 mg PO DAILY #30 tabs 05/23/23 [Rx Last Taken Unknown] duloxetine 30 mg capsule,delayed release 30 mg PO QAM #30 caps 06/07/23 [Rx Last Taken Unknown] duloxetine 60 mg capsule,delayed release 60 mg PO QHS #30 caps 06/07/23 [Rx Last Taken Unknown] atorvastatin 20 mg tablet 20 mg PO QHS 06/10/23 [History Last Taken Unknown] insulin aspart U-100 100 unit/mL (3 mL) subcutaneous pen (Novolog FlexPen U-100 Insulin aspart) 20 unit subcut DINNER 06/10/23 [History Last Taken Unknown] insulin aspart U-100 100 unit/mL (3 mL) subcutaneous pen (Novolog FlexPen U-100 Insulin aspart) 25 unit subcut LUNCH 06/10/23 [History Last Taken Unknown] Allergy/AdvReac Type Severity Reaction Status Date / Time adhesive tape Allergy Hives/Rash Verified 06/10/23 17:02 ciprofloxacin [From Cipro] Allergy Photosensitivity Verified 06/10/23 17:02 & dermatitis pioglitazone [From Actos] Allergy Unknown Verified 06/10/23 17:02 codeine AdvReac Upset Verified 06/10/23 17:02 Stomach ibandronate sodium AdvReac GI Verified 06/10/23 17:02 [From Boniva] upset/esophageal burning ibuprofen AdvReac GI upset Verified 06/10/23 17:02 Iodinated Contrast Media AdvReac Vomiting Verified 06/10/23 17:02 [CONTRASTS] iodine AdvReac Vomiting Verified 06/10/23 17:02 lansoprazole AdvReac Diarrhea Verified 06/10/23 17:02 metformin AdvReac Diarrhea Verified 06/10/23 17:02 miconazole AdvReac Rash/Bliste Verified 06/10/23 17:02 [From Neosporin AF] rs nabumetone [From Relafen] AdvReac GI upset Verified 06/10/23 17:02 pantoprazole [From Protonix] AdvReac Diarrhea Verified 06/10/23 17:02 sucralfate [From Carafate] AdvReac feels Verified 06/10/23 17:02 poorly Family History Father Lung cancer Colon cancer Mother Mesothelioma Hypertension Grandmother Heart disease Surgical History H/O endoscopy History of lung biopsy Hx of cataract surgery nerve block S/P lobectomy of lung S/P rotator cuff repair Spinal injections Social History household members: spouse housing: house pets and animals: No Smoking Status: Never smoker second hand exposure: No alcohol intake: current alcohol intake frequency: holidays/special occasions only substance use type: does not use ROS ROS ED ROS Narrative REVIEW OF SYSTEMS: Unless otherwise stated in this report the patient's positive and negative responses for review of systems for constitutional, eyes, ENT, cardiovascular, respiratory, gastrointestinal, neurological, , musculoskeletal, and integument systems and related systems to the presenting problem are either stated in the history of present illness or were not pertinent or were negative for the symptoms and/or complaints related to the presenting medical problem. EXAM Physical Exam Narrative Exam Narrative: Vital signs reviewed and patient is not hypoxic. General: The patient appears well and in no apparent distress. Patient is resting comfortably on cart. Not toxic, lethargic, or listless. Skin: Warm, dry, no pallor noted. There is no rash noted. Head: Normocephalic, atraumatic; full range of motion with no difficulty, no meningeal signs or symptoms. No tenderness to palpation to bilateral frontal or maxillary sinus. Eye: Normal conjunctiva, no drainage, EOMI. PERRL. Ears, Nose, Mouth, and Throat: oral mucosa is moist. Nares patent. Mouth without vesicles. Cardiovascular: Patient is tachycardic, regular Rate and Rhythm, no murmurs, gallops, or rubs Respiratory: Patient is in no distress, no accessory muscle use, lungs are clear to auscultation, no wheezing, rales or rhonchi Back: non-tender, no CVA tenderness bilaterally to percussion. NO CTLS midline or paraspinal tenderness to palpation. GI: Soft, no tenderness to palpation, no masses appreciated. No rebound, guarding, or rigidity noted. Musculoskeletal: The patient has full range of motion of all extremities and joints with no difficulty. Patient has moderate tenderness palpation to very superficial palpation to left anterior ta, patient does have some mild varicosities to the area, no hematoma, no obvious deformity, no significant swelling, no other acute findings why she be having pain to the area of left ant ta. patient has no motor, no sensory deficits. Neurological: A&O x4, normal speech, no focal neurological deficits. Psychiatric: Cooperative Const Vital Signs: 06/10/23 16:59 06/10/23 18:30 06/10/23 19:49 Temperature 98.4 F 98.4 F Temperature Source Oral Pulse Rate 130 H 104 H Respiratory Rate 19 H 19 H Respiratory Effort Normal Non-Labored Respiratory Pattern Normal Blood Pressure 164/82 H 126/61 H Blood Pressure Mean 109 82 Pulse Ox 93 95 Oxygen Delivery Method Room Air MDM MDM MDM Narrative Medical decision making narrative: Patient has white blood cell count 12.9, elevated lactic acid of 2.9. CO2 level of 17. Patient is having unknown reason for pain to the left anterior ta. Patient felt much better after IV fluids. Patient x-ray to the left tib-fib shows no acute findings. Patient is now moving her leg better. However, patient was set up at bedside, she was still unsteady, weak, and almost fell, patient needed nursing assistance. Patient's lactic acid. Patient has white blood cell count of 12.9. Patient Carbon oxide level 17, patient BUN and creatinine are normal. Patient was given 1 g of Rocephin. Secondary to patient's weakness, UTI, acidosis and dehydration patient will be admitted for further care. Patient daughter and are at bedside. Ice was applied to the left anterior ta. Patient was given IV fluids, Zofran, Rocephin and a small dose of morphine to help with her pain. Patient will be admitted to the hospitalist, Dr. Morgan. Patient was seen and evaluated in the ER by Dr Morgan. Lab Data Attestation: I reviewed the patient's lab results. Labs: Laboratory Results - last 24 hr 06/10/23 18:00 WBC 12.9 H RBC 4.94 Hgb 15.3 H Hct 44.8 MCV 90.7 MCH 31.0 MCHC 34.2 RDW Std Deviation 43.3 RDW Coeff of Win 13.2 Plt Count 252 MPV 9.8 Immature Gran % (Auto) 0.200 Neut % (Auto) 86.1 H Lymph % (Auto) 5.7 L [place] % (Auto) 5.8 Eos % (Auto) 2.1 Baso % (Auto) 0.1 Absolute Neuts (auto) 11.1 H Absolute Lymphs (auto) 0.73 L Nucleated RBC % 0 PT 14.0 INR 1.1 APTT 27.6 Sodium 134 L Potassium 3.9 Chloride 105 Carbon Dioxide 17.0 L Anion Gap 12 BUN 17 Creatinine 0.88 Estim Creat Clear Calc 39.65 Est GFR (MDRD) Af Amer 79 Est GFR (MDRD) Non-Af 66 BUN/Creatinine Ratio 19.3 Glucose 238 H Lactic Acid 2.9 H* Calcium 9.1 Total Bilirubin 0.50 AST 11 L ALT 19 Alkaline Phosphatase 109 Total Creatine Kinase 301 H Total Protein 8.0 Albumin 3.5 Globulin 4.5 H Albumin/Globulin Ratio 0.8 L Radiography Chest X-Ray - ED: 1 View and Read by ED Physician (Chest x-ray shows no acute cardiopulmonary disease, no infiltrate, no effusion.) Diagnostic Testing: Clinical Impression(s) from Imaging Studies Chest X-Ray 06/10/23 18:35 IMPRESSION: No acute cardiopulmonary process. Electronically Signed: Dariel Griffith MD ([place]) at 18:51 EDT , Tibia/Fibula X-Ray 06/10/23 19:15 IMPRESSION: Normal x-ray examination of the tibia and fibula. Electronically Signed: Dariel Griffith MD ([place]) at 19:28 EDT , EKG Initial EKG: Attestation: I personally reviewed and interpreted this EKG as follows: Comments: EKG interpretation. Sinus tachycardia at 107. Left axis deviation. No acute ST elevation, no acute ectopy. QTc of 496. Discharge Plan Disposition Disposition: Acute Care Hospital [facility] Discharge Date/Time: 06/10/23 21:33
[2023-06-10] MEDS: Ondansetron 4 MG/2 ML Vial IV ×2 (18:13→22:22)
[2023-06-10 18:14] LABS: Absolute Lymphocyte Count 0.73 X10^3/uL (0.83-4.51); Absolute Neutrophil Count 11.1 X10^3/uL (2.0-7.7); Basophil# 0.01 X10^3/uL; Basophil% 0.1 % (0-1); Eosinophil# 0.27 X10^3/uL; Eosinophils% 2.1 % (0-5); Hematocrit 44.8 % (37-47); Hemoglobin 15.3 g/dL (12.0-15.0); Lymphocyte # 0.73 X10^3/ul (0.83-4.51); Lymphocyte % 5.7 % (19-41); Mean Corp Hgb Conc 34.2 g/dL (32-36); Mean Corpuscular Volume 90.7 fL (81-99); Mean Platelet Vol. 9.8 fl (6.2-12.0); Monocyte# 0.75 X10^3/uL; Monocyte% 5.8 % (0-10); NRBC Flagged by Analyzer 0 % (0-5); Neutrophil # 11.12 X10^3/uL (2.7-7.7); Neutrophil % 86.1 % (47-70); Platelet Count 252 K/mm3 (150-450); RBC Distribution Width CV 13.2 % (11.6-14.6); RBC Distribution Width SD 43.3 fl (35.1-43.9); Red Blood Count 4.94 M/mm3 (4.2-5.4); White Blood Count 12.9 K/mm3 (4.4-11.0)
[2023-06-10] MEDS: Ketorolac 15 MG/ML Vial IV (18:14)
[2023-06-10] MEDS: Morphine 2 MG/ML Syringe IV ×2 (18:15→22:22)
[2023-06-10] MEDS: 0.9% Normal Saline (1000mL) 1,000 ML 999 ML IV (18:16)
[2023-06-10] MEDS: Acetaminophen 325 MG Tablet 650 MG PO (18:17)
[2023-06-10 18:24] LABS: International Normalized Ratio 1.1
[2023-06-10 18:25] LABS: Partial Thromboplast Time 27.6 Seconds (24.1-36.2)
[2023-06-10 18:32] LABS: ALB/GLOB Ratio 0.8 RATIO (0.9-2.4); AST(SGOT) 11 U/L (15-37); Alanine Aminotransfer ALT/SGPT 19 U/L (13-56); Albumin, Serum 3.5 g/dL (3.2-5.0); Alkaline Phosphatase 109 U/L (45-117); Anion Gap 12 (5-15); BUN 17 mg/dL (7-18); BUN/Creat Ratio 19.3 RATIO (10-20); CPK Total, Creatine Kinase 301 U/L (26-192); Calcium,Total 9.1 mg/dL (8.5-10.1); Chloride 105 mmol/L (98-107); Creatinine, Serum 0.88 mg/dL (0.55-1.02); EST Glomerular Filtration Rate 66 mL/min (>60); Est Glom Filt Rate - Afr Amer 79 mL/min (>60); Estimated Creatinine Clearance 39.65 ml/min; Globulin 4.5 g/dL (2.2-4.2); Glucose 238 mg/dL (74-106); Potassium 3.9 mmol/L (3.5-5.1); Sodium Level 134 mmol/L (136-145)
--- NOTE | 2023-06-10 18:35 | RAD_ITS ---
STUDY: X-RAY CHEST REASON FOR EXAM: Female, 83 years old. tachy TECHNIQUE: AP COMPARISON: 01/01/2020 FINDINGS: EKG leads project over the chest. The lungs are clear and expanded. There is no demonstrated pleural abnormality. Normal size heart. Normal mediastinum and loree. Normal visualized pulmonary arteries. There is atherosclerotic calcification of the aortic arch with tortuosity. Normal visualized thoracic spine. Normal visualized ribs, clavicles, and shoulders. There is no demonstrated abnormality of the visualized soft tissue structures of the upper abdomen. RAD/Chest 1 View (Portable) IMPRESSION: No acute cardiopulmonary process. Electronically Signed: Dariel Griffith MD ([place]) at 18:51 EDT ,
[2023-06-10 18:43] LABS: Lactic Acid 2.9 mmol/L (0.4-1.9)
[2023-06-10] MEDS: Ceftriaxone 1 GM/50 ML BAG IV (18:47)
--- NOTE | 2023-06-10 19:15 | RAD_ITS ---
STUDY: X-RAY - LEFT TIBIA AND FIBULA REASON FOR EXAM: Female, 83 years old. pain TECHNIQUE: 2 view(s) of the tibia and fibula were obtained. COMPARISON: None. FINDINGS: Normal visualized tibia. Normal visualized fibula. The soft tissue structures are unremarkable. RAD/Tibia & Fibula 2 Views IMPRESSION: Normal x-ray examination of the tibia and fibula. Electronically Signed: Dariel Griffith MD ([place]) at 19:28 EDT ,
[2023-06-10] MEDS: 0.9% Normal Saline (500mL Bag) 500 ML 999 ML IV (19:48)
[2023-06-10 19:49] VITALS: BP 126/61; PULSE 104; RESP 19; TEMP 36.9; O2SAT 95
--- NOTE | 2023-06-10 20:15 | PCM.HP.STD ---
HPI - General General Date of Admission: 06/10/23 Date of Service: 06/10/23 Chief Complaint: Weakness HPI Narrative CHRISTINA IVORY, is a 83 F significant history of lung cancer status post left upper lobe lobectomy; diabetes mellitus; and recurrent UTIs who is on suppressive therapy with low-dose Keflex presents emergency department with weakness. Of note patient is too weak that she has difficulty with ambulation. She attributes this weakness to pain at his left anterior ta. Associated with her symptoms is nausea and vomiting that started a day before presentation. She vomited a day before presentation but not on the day of presentation. Further patient complains of dysuria. Of note she was recently diagnosed with UTI by her urologist, Dr. Don, and was started on outpatient Macrobid. Reportedly she threw up with taking the first dose of Macrobid. She had a second dose of Macrobid a day before presentation. At the emergency department attempt was made to walk patient. However patient was too weak and she was stumbling as she stood up. Subsequently, a decision was made to admit patient to the hospital. FOR[facility]LY [facility] Medical History Accelerated essential hypertension Acute chest pain Acute gastritis Anxiety C. 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 disease Chronic cough Depression Enlargement of lymph nodes Esophagitis Essential (primary) hypertension Fatigue GERD (gastroesophageal reflux disease) History of ischemic stroke IBS (irritable bowel syndrome) Macular degeneration Migraine Migraine without aura, not intractable, without status migrainosus Overweight (BMI 25.0-29.9) Restless legs Home Medications cholecalciferol (vitamin D3) 25 mcg (1,000 unit) tablet 1,000 unit PO DAILY supplement 03/13/17 [History Last Taken 01/01/20] metoprolol succinate 200 mg tablet,extended release 24 hr 200 mg PO DAILY heart 03/13/17 [History Last Taken 01/01/20] lorazepam 1 mg tablet 1 mg PO DAILY anxiety 08/28/18 [History Last Taken 01/01/20] esomeprazole magnesium 40 mg capsule,delayed release 40 mg PO DAILY gerd 01/01/20 [History Last Taken 01/01/20] aspirin 81 mg chewable tablet 81 mg PO DAILY@0800 ##30 01/03/20 [Rx Last Taken Unknown] PEP device #1 ea 03/30/20 [Rx Last Taken Unknown] cranberry 500 mg capsule 500 mg PO BID 03/15/21 [History Last Taken Unknown] fesoterodine 4 mg tablet,extended release 24 hr (Toviaz) 8 mg PO DAILY 10/10/21 [History Last Taken Unknown] pen needle, diabetic 32 gauge x 1/4 (BD Ultra-Fine Micro Pen Needle) #450 ea 12/14/21 [Rx Last Taken Unknown] blood sugar diagnostic ([employer] Verio test strips) #100 ea 12/25/22 [Rx Last Taken Unknown] cephalexin 250 mg capsule 250 mg PO QHS 02/06/23 [History Last Taken Unknown] pyridoxine (vitamin B6) 250 mg tablet 250 mg PO DAILY 02/06/23 [History Last Taken Unknown] insulin aspart U-100 100 unit/mL (3 mL) subcutaneous pen (Novolog FlexPen U-100 Insulin aspart) 34 unit subcut BREAKFAST 03/05/23 [History Last Taken Unknown] insulin glargine 100 unit/mL (3 mL) subcutaneous pen (Lantus Solostar U-100 Insulin) 20 unit subcut QHS dm 03/05/23 [History Last Taken Unknown] albuterol sulfate 90 mcg/actuation aerosol inhaler 2 puff inhalation Q6H PRN shortness of breath or wheezing #6.7 grams 03/07/23 [Rx Last Taken Unknown] empagliflozin 25 mg tablet (Jardiance) 25 mg PO DAILY #30 tabs 05/23/23 [Rx Last Taken Unknown] duloxetine 30 mg capsule,delayed release 30 mg PO QAM #30 caps 06/07/23 [Rx Last Taken Unknown] duloxetine 60 mg capsule,delayed release 60 mg PO QHS #30 caps 06/07/23 [Rx Last Taken Unknown] atorvastatin 20 mg tablet 20 mg PO QHS 06/10/23 [History Last Taken Unknown] insulin aspart U-100 100 unit/mL (3 mL) subcutaneous pen (Novolog FlexPen U-100 Insulin aspart) 20 unit subcut TID dm 06/10/23 [History Last Taken Unknown] furosemide 20 mg tablet (Lasix) 20 mg PO DAILY bp 06/11/23 [History Last Taken Unknown] omeprazole 40 mg capsule,delayed release 40 mg PO DAILY gerd 06/11/23 [History Last Taken Unknown] rosuvastatin 10 mg tablet 5 mg PO QHS hld 06/11/23 [History Last Taken Unknown] Allergy/AdvReac Type Severity Reaction Status Date / Time adhesive tape Allergy Hives/Rash Verified 06/10/23 17:02 ciprofloxacin [From Cipro] Allergy Photosensitivity Verified 06/10/23 17:02 & dermatitis pioglitazone [From Actos] Allergy Unknown Verified 06/10/23 17:02 codeine AdvReac Upset Verified 06/10/23 17:02 Stomach ibandronate sodium AdvReac GI Verified 06/10/23 17:02 [From Boniva] upset/esophageal burning ibuprofen AdvReac GI upset Verified 06/10/23 17:02 Iodinated Contrast Media AdvReac Vomiting Verified 06/10/23 17:02 [CONTRASTS] iodine AdvReac Vomiting Verified 06/10/23 17:02 lansoprazole AdvReac Diarrhea Verified 06/10/23 17:02 metformin AdvReac Diarrhea Verified 06/10/23 17:02 miconazole AdvReac Rash/Bliste Verified 06/10/23 17:02 [From Neosporin AF] rs nabumetone [From Relafen] AdvReac GI upset Verified 06/10/23 17:02 pantoprazole [From Protonix] AdvReac Diarrhea Verified 06/10/23 17:02 sucralfate [From Carafate] AdvReac feels Verified 06/10/23 17:02 poorly Family History Father Lung cancer Colon cancer Mother Mesothelioma Hypertension Grandmother Heart disease Surgical History H/O endoscopy History of lung biopsy Hx of cataract surgery nerve block S/P lobectomy of lung S/P rotator cuff repair Spinal injections Social History household members: spouse housing: house pets and animals: No Smoking Status: Never smoker second hand exposure: No alcohol intake: current alcohol intake frequency: holidays/special occasions only substance use type: does not use ROS ROS Narrative Pertinent positives and pertinent negatives as noted in HPI. All other systems were reviewed and are negative Vital Signs Vital Signs Vital Signs: 06/10/23 16:59 06/10/23 18:30 06/10/23 19:49 Temperature 98.4 F 98.4 F Temperature Source Oral Pulse Rate 130 H 104 H Respiratory Rate 19 H 19 H Respiratory Effort Normal Non-Labored Respiratory Pattern Normal Blood Pressure 164/82 H 126/61 H Blood Pressure Mean 109 82 Pulse Ox 93 95 Oxygen Delivery Method Room Air Weight Weight: 67.2 kg Body Mass Index (BMI) 27.1 Physical Exam Narrative Physical exam: General: Well-nourished, well-developed. Head: Normocephalic, atraumatic, no tenderness Eyes: Vision is grossly intact. EOMI ENT, no trauma, moist mucous membranes, no rhinorrhea Neck: Nontender, No thyromegaly. CVS: Regular rate and rhythm. S1-S2 present. No murmur, gallop or rub. Respiratory : clear to auscultation bilaterally, chest wall nontender Abdomen: Soft, nondistended, normal bowel sounds, no masses. Suprapubic tenderness. : Deferred Back: Nontender, no CVA tenderness, Extremities: Nontender full range of motion, no trauma. Stiff left leg. Skin: Normal color, no trauma, abrasions Neuro: Alert, oriented, cranial nerves II through XII grossly intact. Psychiatry: Normal mood. Normal affect. Not depressed. Not anxious. Results Lab / Micro Data 06/10/23 18:00 06/10/23 18:00 Labs: Laboratory Results - last 24 hr 06/10/23 18:00: WBC 12.9 H, RBC 4.94, Hgb 15.3 H, Hct 44.8, MCV 90.7, MCH 31.0, MCHC 34.2, RDW Std Deviation 43.3, RDW Coeff of Win 13.2, Plt Count 252, MPV 9.8, Immature Gran % (Auto) 0.200, Neut % (Auto) 86.1 H, Lymph % (Auto) 5.7 L, [place] % (Auto) 5.8, Eos % (Auto) 2.1, Baso % (Auto) 0.1, Absolute Neuts (auto) 11.1 H, Absolute Lymphs (auto) 0.73 L, Nucleated RBC % 0, PT 14.0, INR 1.1, APTT 27.6, Sodium 134 L, Potassium 3.9, Chloride 105, Carbon Dioxide 17.0 L, Anion Gap 12, BUN 17, Creatinine 0.88, Estim Creat Clear Calc 39.65, Est GFR (MDRD) Af Amer 79, Est GFR (MDRD) Non-Af 66, BUN/Creatinine Ratio 19.3, Glucose 238 H, Lactic Acid 2.9 H*, Calcium 9.1, Total Bilirubin 0.50, AST 11 L, ALT 19, Alkaline Phosphatase 109, Total Creatine Kinase 301 H, Total Protein 8.0, Albumin 3.5, Globulin 4.5 H, Albumin/Globulin Ratio 0.8 L Micro: Microbiology 06/10/23 18:00 Nasal Secretion SARS-CoV-2 Antigen (Rapid) - Final Radiology Impression Chest X-Ray 06/10/23 18:35 IMPRESSION: No acute cardiopulmonary process. Electronically Signed: Dariel Griffith MD ([place]) at 18:51 EDT , Tibia/Fibula X-Ray 06/10/23 19:15 IMPRESSION: Normal x-ray examination of the tibia and fibula. Electronically Signed: Dariel Griffith MD ([place]) at 19:28 EDT , Assessment & Plan Assessment/Plan (1) Sepsis: QUALIFIERS: Sepsis type: sepsis due to unspecified organism Sepsis acute organ dysfunction status: with acute organ dysfunction Severe sepsis acute organ dysfunction type: unspecified Severe sepsis shock status: without septic shock Qualified Code(s): A41.9 - Sepsis, unspecified organism; R65.20 - Severe sepsis without septic shock (2) UTI (urinary tract infection): QUALIFIERS: Urinary tract infection type: acute cystitis Hematuria presence: without hematuria Qualified Code(s): N30.00 - Acute cystitis without hematuria (3) Diabetes 1.5, managed as type 1: PLAN: Plan Sepsis secondary to UTI The patient presented with sepsis due to (UTI) with acute sepsis related organ dysfunction as evidenced by (lactic acidosis). SIRS criteria: Heart rate more than 90 WBC more than 12,000 (patient case [id number]). With neutrophilia and lymphopenia. organ dysfunction: Lactic acidosis of 2.9 on presentation, trend. With patient being on low-dose chronic Keflex consideration was made to switch to IV quinolones. However patient has allergy to Cipro so we will continue with IV ceftriaxone started at the emergency department. If patient does not improve consider escalation of antibiotics. Urine culture and blood culture was ordered in the emergency department; follow. Hold home Keflex. Hold Macrobid. Left leg pain X-ray of leg: We will get Doppler of left leg. Diabetes mellitus With patient being on empagliflozin and having nausea with metabolic acidosis euglycemic DKA was considered. However with no vomiting on day of presentation is less likely. Hold on empagliflozin. Glucose is not within goal. Adjust home prandial insulin. Adjust home basal insulin. Add correction scale insulin. Generalized weakness PT and OT consult. Case management consult for disposition. DVT prophylaxis: Subcutaneous Lovenox. Time spent in the patient's overall evaluation,decision-making process, review of diagnostic data, adjustment of management, discussion with other providers, nursing and ancillary staff involved in patient's care documentation, 70 minutes. Charges/Coding Visit Charges Inpatient E&M: 25886 Init Hosp L3
--- NOTE | 2023-06-10 20:40 | VDLE_ITS ---
VL/Venous Duplex US, Unilateral Interpretation Summary Deep veins of the left lower extremity are patent and compressible segmentally. There is no evidence of left lower extremity deep vein thrombosis. Valvular competence appears intac t within the proximal deep venous system on the left . The left great saphenous vein appears patent a nd compressible segmentally. Ordering Physician: Edwin Morgan Referring Physician: Emily Yun Performed By: Harjinder Mandel RVT
[2023-06-10 21:53] VITALS: BMI 26.4
[2023-06-10 22:07] VITALS: BP 133/66; PULSE 113; RESP 18; TEMP 36.6; O2SAT 97
[2023-06-10 22:12] LABS: Reflex Lactate? Y
[2023-06-10] MEDS: 0.9% Normal Saline (1000mL) 1,000 ML 75 ML IV (22:22)
[2023-06-10] MEDS: Insulin Lispro 100 UNIT/ML INSULN.PEN SC (22:58)
[2023-06-10] MEDS: Insulin Glargine-YFGN 100 UNIT/ML Pen 10 UNIT SC (22:58)
[2023-06-10] MEDS: Atorvastatin Calcium 20 MG Tablet PO (23:00)
[2023-06-10] MEDS: DULoxetine Hcl 60 MG Capsule PO (23:00)
[2023-06-10] MEDS: 0.9% Saline Lock 10 ML Syringe IV (23:03)
[2023-06-10 23:14] LABS: Lactic Acid 1.7 mmol/L (0.4-1.9)
[2023-06-10] MEDS: DiphenhydrAMINE 25 MG Capsule PO (23:20)
[2023-06-10 23:35] LABS: Bedside Glucose 303 mg/dL (74-106)
[2023-06-11] VITALS (9 sets, daily range): BP systolic 102–167; BP diastolic 57–63; PULSE 85–105; RESP 16–18; TEMP 36.5–36.9; O2SAT 94–97
[2023-06-11] MEDS: Acetaminophen 325 MG Tablet 650 MG PO ×2 (02:51→12:00)
[2023-06-11] MEDS: Morphine 2 MG/ML Syringe IV ×2 (05:43→20:50)
[2023-06-11] MEDS: 0.9% Saline Lock 10 ML Syringe IV (05:45)
[2023-06-11 07:16] LABS: Anion Gap 8 (5-15); BUN 13 mg/dL (7-18); BUN/Creat Ratio 20.8 RATIO (10-20); CPK Total, Creatine Kinase 240 U/L (26-192); Calcium,Total 7.7 mg/dL (8.5-10.1); Chloride 110 mmol/L (98-107); Creatinine, Serum 0.62 mg/dL (0.55-1.02); EST Glomerular Filtration Rate 97 mL/min (>60); Est Glom Filt Rate - Afr Amer 118 mL/min (>60); Glucose 243 mg/dL (74-106); Potassium 3.9 mmol/L (3.5-5.1); Sodium Level 137 mmol/L (136-145)
[2023-06-11 07:40] LABS: Absolute Neutrophil Count 5.8 X10^3/uL (2.0-7.7); Basophil# 0.03 X10^3/uL; Basophil% 0.4 % (0-1); Eosinophil# 0.57 X10^3/uL; Eosinophils% 7.1 % (0-5); Hematocrit 41.1 % (37-47); Hemoglobin 13.5 g/dL (12.0-15.0); Lymphocyte % 11.2 % (19-41); Mean Corp Hgb Conc 32.8 g/dL (32-36); Mean Corpuscular Hgb 30.9 pg (27.0-32.0); Mean Corpuscular Volume 94.1 fL (81-99); Mean Platelet Vol. 9.8 fl (6.2-12.0); Monocyte# 0.66 X10^3/uL; Monocyte% 8.2 % (0-10); NRBC Flagged by Analyzer 0 % (0-5); Neutrophil # 5.83 X10^3/uL (2.7-7.7); Neutrophil % 72.9 % (47-70); Platelet Count 199 K/mm3 (150-450); RBC Distribution Width CV 13.5 % (11.6-14.6); RBC Distribution Width SD 46.3 fl (35.1-43.9); Red Blood Count 4.37 M/mm3 (4.2-5.4)
[2023-06-11] MEDS: Aspirin 81 MG TAB.CHEW PO (08:27)
[2023-06-11] MEDS: DULoxetine Hcl 30 MG Capsule PO (08:27)
[2023-06-11] MEDS: Tolterodine Tartrate 4 MG CAP.SA PO (08:27)
[2023-06-11] MEDS: Pantoprazole Sodium 40 MG Tablet PO (08:27)
[2023-06-11] MEDS: Cholecalciferol (VIT D3) 25 MCG TABLET (1,000 UNITS) PO (08:28)
[2023-06-11] MEDS: Furosemide 20 MG Tablet PO (08:28)
[2023-06-11] MEDS: Enoxaparin 40 MG/0.4 ML Syringe SC (08:28)
[2023-06-11] MEDS: Metoprolol(XL)Succ 200 MG Tablet PO (08:28)
[2023-06-11] MEDS: Pyridoxine HCl 100 MG Tablet 250 MG PO (08:28)
[2023-06-11] MEDS: Insulin Lispro 100 UNIT/ML INSULN.PEN 24 UNIT SC (08:29)
[2023-06-11] MEDS: Insulin Lispro 100 UNIT/ML INSULN.PEN SC ×4 (08:29→20:56)
[2023-06-11 09:00] LABS: Bedside Glucose 249 mg/dL (74-106)
--- NOTE | 2023-06-11 09:23 | PCM.PN.HOSP ---
Subjective Subjective Doing well, leukocytosis has resolved. She does have a history of a stroke a couple years ago with continued right-sided deficits Objective Data Objective Data Vital Signs: Vital Signs Temp Pulse Resp BP Pulse Ox O2 Del Method 97.8 F 105 H 18 142/60 H 97 Room Air 06/11/23 08:11 06/11/23 08:28 06/11/23 08:11 06/11/23 08:11 06/11/23 08:11 06/11/23 08:15 Oxygen Delivery Method Room Air Weight: 144 lb 8 oz Body Mass Index (BMI) 26.4 Intake & Output: Intake and Output for Last 24 Hours 06/10/23 06/11/23 06/12/23 03:59 03:59 03:59 Intake Total 1550 / 1550 150 / 150 Output Total 450 / 450 Balance 1550 / 1550 -300 / -300 Lab / Micro Data 06/11/23 07:28 06/11/23 06:10 Labs: Laboratory Results - last 24 hr 06/10/23 18:00: WBC 12.9 H, RBC 4.94, Hgb 15.3 H, Hct 44.8, MCV 90.7, MCH 31.0, MCHC 34.2, RDW Std Deviation 43.3, RDW Coeff of Win 13.2, Plt Count 252, MPV 9.8, Immature Gran % (Auto) 0.200, Neut % (Auto) 86.1 H, Lymph % (Auto) 5.7 L, [place] % (Auto) 5.8, Eos % (Auto) 2.1, Baso % (Auto) 0.1, Absolute Neuts (auto) 11.1 H, Absolute Lymphs (auto) 0.73 L, Nucleated RBC % 0, PT 14.0, INR 1.1, APTT 27.6, Sodium 134 L, Potassium 3.9, Chloride 105, Carbon Dioxide 17.0 L, Anion Gap 12, BUN 17, Creatinine 0.88, Estim Creat Clear Calc 39.65, Est GFR (MDRD) Af Amer 79, Est GFR (MDRD) Non-Af 66, BUN/Creatinine Ratio 19.3, Glucose 238 H, Lactic Acid 2.9 H*, Calcium 9.1, Total Bilirubin 0.50, AST 11 L, ALT 19, Alkaline Phosphatase 109, Total Creatine Kinase 301 H, Total Protein 8.0, Albumin 3.5, Globulin 4.5 H, Albumin/Globulin Ratio 0.8 L 06/10/23 22:38: Lactic Acid 1.7 06/10/23 22:54: POC Glucose 303 H 06/11/23 06:10: WBC Cancelled, Corrected WBC Cancelled, RBC Cancelled, Hgb Cancelled, Hct Cancelled, MCV Cancelled, MCH Cancelled, MCHC Cancelled, RDW Std Deviation Cancelled, RDW Coeff of Win Cancelled, Plt Count Cancelled, MPV Cancelled, Immature Gran % (Auto) Cancelled, Neut % (Auto) Cancelled, Lymph % (Auto) Cancelled, [place] % (Auto) Cancelled, Eos % (Auto) Cancelled, Baso % (Auto) Cancelled, Absolute Neuts (auto) Cancelled, Absolute Lymphs (auto) Cancelled, Total Counted Cancelled, Neutrophils % (Manual) Cancelled, Band Neutrophils % Cancelled, Lymphocytes % (Manual) Cancelled, Monocytes % (Manual) Cancelled, Eosinophils % (Manual) Cancelled, Basophils % (Manual) Cancelled, Metamyelocytes % Cancelled, Myelocytes % Cancelled, Promyelocytes % Cancelled, Blast Cells % Cancelled, Plasma Cell % (Manual) Cancelled, Other Cells % Cancelled, Nucleated RBC % Cancelled, Nucleated RBCs/100 WBC Cancelled, Differential Comment Cancelled, Diff Path Review Cancelled, Hypersegmented Neuts Cancelled, Atypical Lymphocytes Cancelled, Reactive Lymphocytes Cancelled, Smudge Cells Cancelled, Toxic Granulation Cancelled, Toxic Vacuolation Cancelled, Dohle Bodies Cancelled, Fran Rods Cancelled, Platelet Estimate Cancelled, Plt Morphology Comment Cancelled, RBC Morphology Cancelled 06/11/23 06:10: RBC Morphology Cancelled, Polychromasia Cancelled, Hypochromasia Cancelled, Poikilocytosis Cancelled, Basophilic Stippling Cancelled, Anisocytosis Cancelled, Microcytosis Cancelled, Macrocytosis Cancelled, Spherocytes Cancelled, Sickle Cells Cancelled, Target Cells Cancelled, Tear Drop Cells Cancelled, Ovalocytes Cancelled, Stomatocytes Cancelled, [place] Bodies Cancelled, [place]han Cells Cancelled, Bite Cells Cancelled, Crenated Cell Cancelled, Acanthocytes (Spur) Cancelled, Rouleaux Cancelled, Schistocytes Cancelled, Sodium 137, Potassium 3.9, Chloride 110 H, Carbon Dioxide 19.0 L, Anion Gap 8, BUN 13, Creatinine 0.62, Estim Creat Clear Calc 34.90, Est GFR (MDRD) Af Amer 118, Est GFR (MDRD) Non-Af 97, BUN/Creatinine Ratio 20.8 H, Glucose 243 H, Calcium 7.7 L, Total Creatine Kinase 240 H, Acetone Level SMALL H 06/11/23 07:28: WBC 8.0, RBC 4.37, Hgb 13.5, Hct 41.1, MCV 94.1, MCH 30.9, MCHC 32.8, RDW Std Deviation 46.3 H, RDW Coeff of Win 13.5, Plt Count 199, MPV 9.8, Immature Gran % (Auto) 0.200, Neut % (Auto) 72.9 H, Lymph % (Auto) 11.2 L, [place] % (Auto) 8.2, Eos % (Auto) 7.1 H, Baso % (Auto) 0.4, Absolute Neuts (auto) 5.8, Absolute Lymphs (auto) 0.90, Nucleated RBC % 0 06/11/23 08:26: POC Glucose 249 H Micro: Microbiology 06/10/23 18:00 Nasal Secretion SARS-CoV-2 Antigen (Rapid) - Final Radiography Diagnostic Testing: Radiology Impression Chest X-Ray 06/10/23 18:35 IMPRESSION: No acute cardiopulmonary process. Electronically Signed: Dariel Griffith MD ([place]) at 18:51 EDT , Tibia/Fibula X-Ray 06/10/23 19:15 IMPRESSION: Normal x-ray examination of the tibia and fibula. Electronically Signed: Dariel Griffith MD ([place]) at 19:28 EDT , Physical Exam Narrative General: Alert, Oriented x3, Cooperative, No apparent distress HEENT: Atraumatic, PERRLA, EOMI, Normocephalic Oral: Moist Mucosa Neck: Supple, No JVD Lungs: Diminished, Normal air movement, No rhonchi, No wheeze, No rales Cardiovascular: Regular rate, Regular Rhythm, Normal S1, Normal S2, No murmurs Abdomen: Soft, Non Tender, Non-Distended, No Hepato-splenomegaly Extremities: No edema, Capillary Refill Less than 3 Seconds Skin: No rashes, No breakdown Musculoskeletal: No Tenderness to Palpation of Joints or Extremities Neurological: Chronic right-sided deficits, moves all extremities, Sensory exam intact to light touch and pain Psych/Mental Status: Normal Affect, Appropriate Assessment & Plan Assessment/Plan (1) Sepsis: QUALIFIERS: Sepsis type: sepsis due to unspecified organism Sepsis acute organ dysfunction status: with acute organ dysfunction Severe sepsis acute organ dysfunction type: unspecified Severe sepsis shock status: without septic shock Qualified Code(s): A41.9 - Sepsis, unspecified organism; R65.20 - Severe sepsis without septic shock (2) UTI (urinary tract infection): QUALIFIERS: Urinary tract infection type: acute cystitis Hematuria presence: without hematuria Qualified Code(s): N30.00 - Acute cystitis without hematuria (3) Diabetes 1.5, managed as type 1: PLAN: Plan 1. Sepsis secondary to UTI based on Medicare criteria/generalized weakness ? She was tachycardic with leukocytosis ? Continue with IV antibiotics ? Urine culture is pending ? She is on chronic low-dose Keflex at home she is allergic to fluoroquinolones we will continue with Rocephin ? PT/OT 2. Left leg pain ? Unclear as to the etiology, she did not fall ? X-rays are unremarkable ? Dopplers pending ? We will provide pain medication 3. HTN/HLD/history of CVA ? Blood pressures are stable, will monitor and make adjustments ? Continue with her home blood pressure medications ? Continue with her home ? Continue with her home Lasix 4. DM2 ? Hold her home oral medications ? Continue with insulin ? Accu-Cheks ACHS ? We will monitor and make adjustments as necessary 5. Anxiety/depression ? Stable ? Continue with her home treatments DVT: Lovenox Charges/Coding Visit Charges Inpatient E&M: 70983 Subs Hosp L2
[2023-06-11] MEDS: LORazepam 0.5 MG Tablet PO (10:19)
--- NOTE | 2023-06-11 11:03 | CASEMGMT ---
MANNY QUEZADA Assessment: Face to Face with pt for initial transition planning/care coordination assessment. RN DAMIEN introduced self and role at [facility], pt voices understanding and consents to assessment.Pt's is also at the bedside. Pt is A&O x4 and answers all questions appropriately at this time. Care providers, pharmacy, and demographics verified/updated. Admitting Dx: Sepsis secondary to UTI PCP: Jama Specialists: (Hot Man), Florencia (Urologist), Shant (Bird Keeper), Ya (Neurologist) [facility] Insurance:[facility] [place] A & B Prescription Benefit: yes LNOK: Josr Ortega () Living Will/HCPOA: yes and Yes; Dariel Gaviria (son-in-law) is HCPOA Living Arrangements: Pt lives with in a 1 story home; [employer]. 2-3 steps w/railing to enter home and 13 steps w/railing to basement. Prior to this admission, pt. states she was doing fine with ambulating stairs. Pt. states she is I in ADLs and she and her share IADLs. Transportation: DME: Shower chair, cane, Pt's states they are getting a commode, grab bars, walker, pulse ox, continual glucose monitoring system and diabetic supplies. Pt. states she woudl like information on medical alert systems and this information was provided to pt. Denies need for additional DME at this time. HHC/SNF: Denies previous SNF; 2020 had HHC but pt. unsure who it was through. Pt states she would like to D/C home and have HHC if needed. She states she will not go to a SNF. Pt states no further concerns/needs. CM to follow. Advised pt to ask CM if any further question/concerns/needs arise, voices understanding. Pt Goal: Home with HHC Plan: TBD, Follow Therapy.
--- NOTE | 2023-06-11 11:39 | CASEMGMT ---
Social Work Power of document review attorney for healthcare, with living will provision initialed, is scanned into the echart. Ayaz Ortega is listed as POA, Wily Gaviria is the first alternate and Marisol Ledesma the second alternate. PERRY Coy
[2023-06-11] MEDS: Insulin Lispro 100 UNIT/ML INSULN.PEN 16 UNIT SC (12:04)
[2023-06-11] MEDS: 0.9% Normal Saline (1000mL) 1,000 ML 75 ML IV (12:07)
[2023-06-11 12:33] LABS: Bedside Glucose 220 mg/dL (74-106)
--- NOTE | 2023-06-11 15:42 | CASEMGMT ---
POOL QUEZADA updated by PT that pt. was not putting any weight on her LLE and needs placement. POOL QUEZADA in to pt. room to discuss tis with pt. Pt. was on the phone and stated it would be best if Pool QUEZADA came back at another time. POOL QUEZADA updated SW on this.
[2023-06-11 16:27] LABS: Bedside Glucose 213 mg/dL (74-106)
--- NOTE | 2023-06-11 16:41 | CHAPLAIN ---
Type of Pastoral Visit _x__ Initial Visit ___ Follow-up Visit ___ On-call Visit ___ General Patient Visit ___ Spiritual Assessment ___ Family Conference ___ Bereavement ___ Rapid Response ___ Code Blue ___ Other (describe below) Pastoral Care Referral From _x__ Patient ___ Family ___ Nurse ___ Physician ___ Outdoor Emergency Care Technician ___ [place] Agent ___ Other (describe below) Sacrament/Intervention _x__ Active listening ___ Anointing ___ Buddhist ___ Bereavement ___ Communion _x__ Sharifa exploration ___ _x__ Life review _x__ Prayer ___ Reconciliation ___ Sacrament of Sick _x__ Supportive presence ___ Wedding ___ Other (describe below) Pastoral Comments patient admits that today she is feeling much better and then describes how she felt earlier; is with her and does much of the talking for patient; pt and spouse talk about their busy time with grandchildren and trying to be available for their support; both are more hopeful today as things have improved; both belong to local yarsanism and find that helpful for their own coping and personal support; prayer is welcomed now
[2023-06-11] MEDS: Insulin Lispro 100 UNIT/ML INSULN.PEN 12 UNIT SC (16:48)
[2023-06-11] MEDS: Ondansetron 4 MG/2 ML Vial IV (20:50)
[2023-06-11] MEDS: Atorvastatin Calcium 10 MG Tablet PO (20:51)
[2023-06-11] MEDS: DULoxetine Hcl 60 MG Capsule PO (20:52)
[2023-06-11] MEDS: Insulin Glargine-YFGN 100 UNIT/ML Pen 10 UNIT SC (20:56)
[2023-06-11] MEDS: Ceftriaxone 1 GM/50 ML BAG IV (21:18)
[2023-06-11 22:23] LABS: Bedside Glucose 209 mg/dL (74-106)
[2023-06-12] VITALS (7 sets, daily range): BP systolic 129–158; BP diastolic 66–83; PULSE 75–94; RESP 16; TEMP 36.3–36.6; O2SAT 93–100
[2023-06-12] MEDS: 0.9% Normal Saline (1000mL) 1,000 ML 75 ML IV (01:15)
[2023-06-12] MEDS: Morphine 2 MG/ML Syringe IV ×3 (01:20→21:34)
[2023-06-12] MEDS: Acetaminophen 325 MG Tablet 650 MG PO (05:44)
[2023-06-12 07:16] LABS: Absolute Lymphocyte Count 1.37 X10^3/uL (0.83-4.51); Absolute Neutrophil Count 4.6 X10^3/uL (2.0-7.7); Basophil# 0.03 X10^3/uL; Basophil% 0.4 % (0-1); Eosinophil# 0.53 X10^3/uL; Eosinophils% 7.4 % (0-5); Hematocrit 35.7 % (37-47); Lymphocyte # 1.37 X10^3/ul (0.83-4.51); Mean Corp Hgb Conc 33.6 g/dL (32-36); Mean Corpuscular Hgb 31.3 pg (27.0-32.0); Monocyte# 0.69 X10^3/uL; Monocyte% 9.6 % (0-10); NRBC Flagged by Analyzer 0 % (0-5); Neutrophil # 4.57 X10^3/uL (2.7-7.7); Neutrophil % 63.3 % (47-70); Platelet Count 195 K/mm3 (150-450); RBC Distribution Width CV 13.4 % (11.6-14.6); RBC Distribution Width SD 45.5 fl (35.1-43.9); Red Blood Count 3.84 M/mm3 (4.2-5.4); White Blood Count 7.2 K/mm3 (4.4-11.0)
[2023-06-12 07:52] LABS: Anion Gap 6 (5-15); BUN 13 mg/dL (7-18); BUN/Creat Ratio 21.7 RATIO (10-20); Calcium,Total 8.1 mg/dL (8.5-10.1); Chloride 108 mmol/L (98-107); EST Glomerular Filtration Rate 102 mL/min (>60); Est Glom Filt Rate - Afr Amer 123 mL/min (>60); Glucose 254 mg/dL (74-106); Potassium 3.8 mmol/L (3.5-5.1); Sodium Level 136 mmol/L (136-145)
[2023-06-12] MEDS: Insulin Lispro 100 UNIT/ML INSULN.PEN SC ×4 (08:20→21:15)
[2023-06-12] MEDS: Insulin Lispro 100 UNIT/ML INSULN.PEN 24 UNIT SC (08:21)
[2023-06-12] MEDS: Aspirin 81 MG TAB.CHEW PO (08:23)
[2023-06-12] MEDS: Tolterodine Tartrate 4 MG CAP.SA PO (08:24)
[2023-06-12] MEDS: Pantoprazole Sodium 40 MG Tablet PO (08:24)
[2023-06-12] MEDS: Furosemide 20 MG Tablet PO (08:24)
[2023-06-12] MEDS: Cholecalciferol (VIT D3) 25 MCG TABLET (1,000 UNITS) PO (08:25)
[2023-06-12] MEDS: Enoxaparin 40 MG/0.4 ML Syringe SC (08:25)
[2023-06-12] MEDS: Pyridoxine HCl 100 MG Tablet 250 MG PO (08:26)
[2023-06-12] MEDS: Metoprolol(XL)Succ 200 MG Tablet PO (08:26)
[2023-06-12] MEDS: Miconazole Nitrate 43 GM Bottle 1 APPLIC TOPICAL ×2 (08:36→21:27)
[2023-06-12] MEDS: LORazepam 0.5 MG Tablet PO (08:36)
[2023-06-12] MEDS: Glucerna Shake 120 ML LIQUID PO ×3 (08:36→16:18)
[2023-06-12] MEDS: DULoxetine Hcl 30 MG Capsule PO (08:36)
[2023-06-12 08:38] LABS: Bedside Glucose 247 mg/dL (74-106)
--- NOTE | 2023-06-12 09:17 | CASEMGMT ---
Discharge Planning A list of?SNF providers including quality and resource use data and consistent with the patient's preferred geographic region, medical needs, and insurance network was created in [facility] Guide.? This list was provided to the SW. Eun Hendrix Discharge Planning Asst.
--- NOTE | 2023-06-12 10:32 | DS.PCM_ITS ---
Providers Date of Admission: 06/10/23 Primary Care Physician: Dr. Emily Yun MD Reason For Visit: SEPSIS SECONDARY TO UTI Diagnosis Discharge Diagnosis (1) Sepsis: Status: Acute Code(s): A41.9 - Sepsis, unspecified organism Qualifiers: Sepsis type: sepsis due to unspecified organism Sepsis acute organ dysfunction status: with acute organ dysfunction Severe sepsis acute organ dysfunction type: unspecified Severe sepsis shock status: without septic shock Qualified Code(s): A41.9 - Sepsis, unspecified organism; R65.20 - Severe sepsis without septic shock (2) UTI (urinary tract infection): Status: Acute Code(s): N39.0 - Urinary tract infection, site not specified Qualifiers: Urinary tract infection type: acute cystitis Hematuria presence: without hematuria Qualified Code(s): N30.00 - Acute cystitis without hematuria (3) Diabetes 1.5, managed as type 1: Status: Chronic Code(s): E13.9 - Other specified diabetes mellitus without complications Medications at Discharge Home Medications cholecalciferol (vitamin D3) 25 mcg (1,000 unit) tablet 1,000 unit PO DAILY supplement 03/13/17 metoprolol succinate 200 mg tablet,extended release 24 hr 200 mg PO DAILY heart 03/13/17 lorazepam 1 mg tablet 1 mg PO DAILY anxiety 08/28/18 esomeprazole magnesium 40 mg capsule,delayed release 40 mg PO DAILY gerd 0 01/01/20 aspirin 81 mg chewable tablet 81 mg PO DAILY@0800 ##30 01/03/20 cranberry 500 mg capsule 500 mg PO BID 03/15/21 fesoterodine 4 mg tablet,extended release 24 hr (Toviaz) 8 mg PO DAILY 10/10/21 pen needle, diabetic 32 gauge x 1/4 (BD Ultra-Fine Micro Pen Needle) #450 ea 12/14/21 blood sugar diagnostic (OneTouch Verio test strips) #100 ea 12/25/22 cephalexin 250 mg capsule 250 mg PO QHS 02/06/23 pyridoxine (vitamin B6) 250 mg tablet 250 mg PO DAILY 02/06/23 insulin aspart U-100 100 unit/mL (3 mL) subcutaneous pen (Novolog FlexPen U-100 Insulin aspart) 34 unit subcut BREAKFAST 03/05/23 insulin glargine 100 unit/mL (3 mL) subcutaneous pen (Lantus Solostar U-100 Insulin) 20 unit subcut QHS dm 03/05/23 albuterol sulfate 90 mcg/actuation aerosol inhaler 2 puff inhalation Q6H PRN shortness of breath or wheezing #6.7 grams 03/07/23 empagliflozin 25 mg tablet (Jardiance) 25 mg PO DAILY #30 tabs 05/23/23 duloxetine 30 mg capsule,delayed release 30 mg PO QAM #30 caps 06/07/23 duloxetine 60 mg capsule,delayed release 60 mg PO QHS #30 caps 06/07/23 insulin aspart U-100 100 unit/mL (3 mL) subcutaneous pen (Novolog FlexPen U-100 Insulin aspart) 20 unit subcut TID dm 06/10/23 furosemide 20 mg tablet (Lasix) 20 mg PO DAILY bp 06/11/23 omeprazole 40 mg capsule,delayed release 40 mg PO DAILY gerd 06/11/23 rosuvastatin 10 mg tablet 5 mg PO QHS hld 06/11/23 cefdinir 300 mg capsule 300 mg PO BID #10 caps 06/12/23 gabapentin 100 mg capsule 100 mg PO BID #60 caps 06/12/23 Hospital Course Summary of Care Provided Minutes Spent on Discharge: 35 Hospital Course: Patient is an 83-year-old lady admitted with sepsis secondary to UTI 1. Sepsis -secondary to UTI patient was managed per protocol urine culture sent however came back negative patient was discharged on cefdinir 2. Left leg pain ? Patient underwent extensive work-up which failed to diagnose the etiology of the pain patient prescribed with a trial of gabapentin 3. Diabetes mellitus type 2 ? Oral agent held please on Accu-Cheks ACHS with sliding scale coverage 4. Hypertension - Blood pressure controlled, home medications continued with dose adjustment as needed 5. Dyslipidemia -Patient is on statin therapy, continued at home dose 6. GERD ? On PPI 7. History of CVA ? With no residual effects PT OT as tolerated 7. Depression with anxiety ? Did continue home meds 8. DVT prophylaxis ? SC Lovenox Physical Exam Narrative GENERAL: cooperative HEENT: Atraumatic; normocephalic EYES; Anicteric, Normal Conjunctiva NECK; supple, normal thyroid, RESPIRATORY: Diminished to auscultation CARDIOVASCULAR: Regular S1 S2, GI: soft, normoactive bowel sounds, : No Renal angle tenderness; EXTREMITIES: No edema, no clubbing, MUSCULOSKELETAL: no muscle wasting NEURO: Awake; no lateralizing signs. SKIN: No Rash PSYCH; Flat affect Weight / BMI Weight Weight: 65.544 kg Body Mass Index (BMI) 26.4 ABG / Lab / Microbiology Data 06/12/23 06:51 06/12/23 06:51 Laboratory: Laboratory Results - last 24 hr 06/11/23 12:03: POC Glucose 220 H 06/11/23 16:08: POC Glucose 213 H 06/11/23 20:55: POC Glucose 209 H 06/12/23 06:51: WBC 7.2, RBC 3.84 L, Hgb 12.0, Hct 35.7 L, MCV 93.0, MCH 31.3, MCHC 33.6, RDW Std Deviation 45.5 H, RDW Coeff of Win 13.4, Plt Count 195, MPV 10.0, Immature Gran % (Auto) 0.300, Neut % (Auto) 63.3, Lymph % (Auto) 19.0, [place] % (Auto) 9.6, Eos % (Auto) 7.4 H, Baso % (Auto) 0.4, Absolute Neuts (auto) 4.6, Absolute Lymphs (auto) 1.37, Nucleated RBC % 0, Sodium 136, Potassium 3.8, Chloride 108 H, Carbon Dioxide 22.0, Anion Gap 6, BUN 13, Creatinine 0.60, Estim Creat Clear Calc 34.90, Est GFR (MDRD) Af Amer 123, Est GFR (MDRD) Non-Af 102, B UN/Creatinine Ratio 21.7 H, Glucose 254 H, Calcium 8.1 L 06/12/23 08:19: POC Glucose 247 H Microbiology: Microbiology 06/10/23 18:00 Urine Catheter - Catheter Urine Culture - Final Culture exhibits no growth. 06/10/23 18:00 Nasal Secretion SARS-CoV-2 Antigen (Rapid) - Final Radiography Diagnostic Testing: Radiology Impression Venous Doppler Study 06/10/23 20:40 Interpretation Summary Deep veins of the left lower extremity are patent and compressible segmentally. There is no evidence of left lower extremity deep vein thrombosis. Valvular competence appears intact within the proximal deep venous system on the left . The left great saphenous vein appears patent and compressible segmentally. Ordering Physician: Edwin Morgan Referring Physician: Emily Yun Performed By: Harjinder Mandel RVT D/C Instructions Discharge Diet: 1800 Calorie Control Diet Discharge Activity: Return to Normal Activity Call your doctor if you observe: Fever of 101 or Higher, Shortness of breath, Fainting spells and Chest pain Meaningful Use Info Meaningful Use Diagnoses (Choose all that apply): None applicable Discharge Plan Admission Admit Date/Time: 06/10/23 20:22 Attending Provider: Nacho Poe Primary Care Provider: Emily Yun Consulting Providers: Edwin Morgan; Rubin Houser Discharge Orders/Prescriptions Prescriptions: New cefdinir 300 mg capsule 300 mg PO BID Qty: 10 0RF gabapentin 100 mg capsule 100 mg PO BID Qty: 60 0RF Continued lorazepam 1 mg tablet 1 mg PO DAILY cranberry 500 mg capsule 500 mg PO BID Rx Instructions: administer with meals fesoterodine [Toviaz] 4 mg tablet extended release 24 hr 8 mg PO DAILY albuterol sulfate 90 mcg/actuation HFA aerosol inhaler 2 puff inhalation Q6H PRN (Reason: shortness of breath or wheezing) Qty: 6.7 3RF cephalexin 250 mg capsule 250 mg PO QHS pyridoxine (vitamin B6) 250 mg tablet 250 mg PO DAILY insulin glargine [Lantus Solostar U-100 Insulin] 100 unit/mL (3 mL) insulin pen 20 unit SC QHS insulin aspart U-100 [Novolog FlexPen U-100 Insulin] 100 unit/mL (3 mL) insulin pen 34 unit SC BREAKFAST duloxetine 60 mg capsule,delayed release(DR/EC) 60 mg PO QHS Qty: 30 5RF duloxetine 30 mg capsule,delayed release(DR/EC) 30 mg PO QAM Qty: 30 5RF metoprolol succinate 200 MG tablet extended release 24 hr 200 mg PO DAILY Patient Comments: BLOOD PRESSURE/HEART cholecalciferol (vitamin D3) 1,000 UNIT tablet 1,000 unit PO DAILY Patient Comments: SUPPLEMENT esomeprazole magnesium 40 MG capsule,delayed release(DR/EC) 40 mg PO DAILY aspirin 81 MG tablet,chewable 81 mg PO DAILY@0800 Qty: 30 0RF insulin aspart U-100 [Novolog FlexPen U-100 Insulin] 100 unit/mL (3 mL) insulin pen 20 unit subcut TID rosuvastatin 10 mg tablet 5 mg PO QHS furosemide [Lasix] 20 mg tablet 20 mg PO DAILY omeprazole 40 mg capsule,delayed release(DR/EC) 40 mg PO DAILY (DME) pen needle, diabetic [BD Ultra-Fine Micro Pen Needle] 32 gauge x 1/4 needle See Rx Instructions .ROUTE .MEDSUPPLY Qty: 450 1RF Rx Instructions: 4x/day (DME) OneTouch Verio test strips Strip See Rx Instructions .ROUTE .MEDSUPPLY Qty: 100 3RF Rx Instructions: daily Jardiance 25 mg tablet 25 mg PO DAILY Qty: 30 6RF Referrals / Follow Up: Emily Yun MD [Primary Care Provider] - Within 1 Week Disposition Disposition (needs filled in before D/C Order can be placed): Home Health Service Charges/Coding Visit Charges Inpatient E&M: 63453 Disch Hosp >30min
--- NOTE | 2023-06-12 11:18 | CASEMGMT ---
Addendum entered by Sara Alves 06/12/23 14:03: Social Work TCU is able to accept pt tomorrow. Pt and made aware and agreeable to dc plan. Physician notified. Plan: TCU, able to be accepted on Sunday ALEXANDRIA Aguillon Addendum entered by Sara Alves 06/12/23 12:25: Social Work SW met with pt and her spouse and both are agreeable that pt would benefit from short term SNF and preferred provider is [facility]. Physician updated and agreeable to change of discharge plan to SNF. Referral made to TCU. SW will await determination of acceptance. Plan: TCU, pending acceptance. ALEXANDRIA Dai Original Note: Social Work SW met with pt and and introduced self and role of SW. Discharge planning options discussed at length and reviewed that pt was able to ambulate only 2 ft at min assist x2. Pt does state that she has the same amount of pain in her leg now that she did when she came to the hospital. SW discussed home with home health and the need for pt's spouse to provide all needed care including assistance with ambulation, toileting, bathing and dressing. Also discussed short term SNF for recovery prior to returning home. A list of SNF providers including quality and resource use data and consistent with the patient?s preferred geographic region, medical needs, and insurance network were provided from the [employer] Guide. Pt and spouse would like to discuss options. SW will return later today for determination of dc plan. ALEXANDRIA Aguillon
[2023-06-12] MEDS: Insulin Lispro 100 UNIT/ML INSULN.PEN 16 UNIT SC (11:58)
[2023-06-12 12:09] LABS: Bedside Glucose 256 mg/dL (74-106)
--- NOTE | 2023-06-12 12:27 | PN.HOSP_ITS ---
Reason for Visit Reason for Visit: Diagnoses Sepsis, unspecified organism (06/10/23) Other specified diabetes mellitus without complications (06/10/23) Acute cystitis without hematuria (06/10/23) Severe sepsis without septic shock (06/10/23) Subjective Subjective Patient is an 83-year-old lady admitted with sepsis secondary to UTI Objective Data Objective Data Vital Signs: Vital Signs Temp Pulse Resp BP Pulse Ox O2 Del Method 97.4 F L 94 16 158/83 H 98 Room Air 06/12/23 09:14 06/12/23 09:14 06/12/23 09:14 06/12/23 09:14 06/12/23 09:14 06/12/23 09:14 Oxygen Delivery Method Room Air Weight: 65.544 kg Body Mass Index (BMI) 26.4 Intake & Output: Intake and Output for Last 24 Hours 06/10/23 06/11/23 06/12/23 23:59 23:59 23:59 Intake Total 1550 / 1550 1440 / 1740 1385 / 1385 Output Total 450 / 850 850 / 850 Balance 1550 / 1550 990 / 890 535 / 535 Lab / Micro Data 06/12/23 06:51 06/12/23 06:51 Labs: Laboratory Results - last 24 hr 06/11/23 12:03: POC Glucose 220 H 06/11/23 16:08: POC Glucose 213 H 06/11/23 20:55: POC Glucose 209 H 06/12/23 06:51: WBC 7.2, RBC 3.84 L, Hgb 12.0, Hct 35.7 L, MCV 93.0, MCH 31.3, MCHC 33.6, RDW Std Deviation 45.5 H, RDW Coeff of Win 13.4, Plt Count 195, MPV 10.0, Immature Gran % (Auto) 0.300, Neut % (Auto) 63.3, Lymph % (Auto) 19.0, [place] % (Auto) 9.6, Eos % (Auto) 7.4 H, Baso % (Auto) 0.4, Absolute Neuts (auto) 4.6, Absolute Lymphs (auto) 1.37, Nucleated RBC % 0, Sodium 136, Potassium 3.8, Chloride 108 H, Carbon Dioxide 22.0, Anion Gap 6, BUN 13, Creatinine 0.60, Estim Creat Clear Calc 34.90, Est GFR (MDRD) Af Amer 123, Est GFR (MDRD) Non-Af 102, BUN/Creatinine Ratio 21.7 H, Glucose 254 H, Calcium 8.1 L 06/12/23 08:19: POC Glucose 247 H 06/12/23 11:52: POC Glucose 256 H Micro: Microbiology 06/10/23 18:00 Urine Catheter - Catheter Urine Culture - Final Culture exhibits no growth. 06/10/23 18:00 Nasal Secretion SARS-CoV-2 Antigen (Rapid) - Final Radiography Diagnostic Testing: Radiology Impression Venous Doppler Study 06/10/23 20:40 Interpretation Summary Deep veins of the left lower extremity are patent and compressible segmentally. There is no evidence of left lower extremity deep vein thrombosis. Valvular competence appears intact within the proximal deep venous system on the left . The left great saphenous vein appears patent and compressible segmentally. Ordering Physician: Edwin Morgan Referring Physician: Emily Yun Performed By: Harjinder Mandel Faby Physical Exam Narrative GENERAL: cooperative HEENT: Atraumatic; normocephalic EYES; Anicteric, Normal Conjunctiva NECK; supple, normal thyroid, RESPIRATORY: Diminished to auscultation CARDIOVASCULAR: Regular S1 S2, GI: soft, normoactive bowel sounds, : No Renal angle tenderness; EXTREMITIES: No edema, no clubbing, MUSCULOSKELETAL: no muscle wasting NEURO: Awake; no lateralizing signs. SKIN: No Rash PSYCH; Flat affect Assessment & Plan Assessment/Plan (1) Sepsis: QUALIFIERS: Sepsis type: sepsis due to unspecified organism Sepsis acute organ dysfunction status: with acute organ dysfunction Severe sepsis acute organ dysfunction type: unspecified Severe sepsis shock status: without septic shock Qualified Code(s): A41.9 - Sepsis, unspecified organism; R65.20 - Severe sepsis without septic shock (2) UTI (urinary tract infection): QUALIFIERS: Urinary tract infection type: acute cystitis Hematuria presence: without hematuria Qualified Code(s): N30.00 - Acute c ystitis without hematuria (3) Diabetes 1.5, managed as type 1: PLAN: Plan Patient is an 83-year-old lady admitted with sepsis secondary to UTI 1. Sepsis -secondary to UTI patient was managed per protocol urine culture sent however came back negative patient was discharged on cefdinir 2. Left leg pain ? Patient underwent extensive work-up which failed to diagnose the etiology of the pain patient prescribed with a trial of gabapentin 3. Diabetes mellitus type 2 ? Oral agent held please on Accu-Cheks ACHS with sliding scale coverage 4. Hypertension - Blood pressure controlled, home medications continued with dose adjustment as needed 5. Dyslipidemia -Patient is on statin therapy, continued at home dose 6. GERD ? On PPI 7. History of CVA ? With no residual effects PT OT as tolerated 7. Depression with anxiety ? Did continue home meds 8. DVT prophylaxis ? SC Lovenox 9. Physical deconditioning - Requested for PT OT eval and web content & social media manager to assist with discharge planning Time spent in the patient's overall evaluation,decision-making process, review of diagnostic data, adjustment of management, discussion with other providers, nursing nursing and ancillary staff involved in patient's care documentation, 40 Minutes Charges/Coding Visit Charges Inpatient E&M: 70976 Subs Hosp L2
[2023-06-12] MEDS: Insulin Lispro 100 UNIT/ML INSULN.PEN 12 UNIT SC (16:17)
[2023-06-12 16:32] LABS: Bedside Glucose 159 mg/dL (74-106)
[2023-06-12] MEDS: Ceftriaxone 1 GM/50 ML BAG IV (21:14)
[2023-06-12] MEDS: DULoxetine Hcl 60 MG Capsule PO (21:15)
[2023-06-12] MEDS: Insulin Glargine-YFGN 100 UNIT/ML Pen 10 UNIT SC (21:15)
[2023-06-12] MEDS: Atorvastatin Calcium 10 MG Tablet PO (21:16)
[2023-06-12 21:34] LABS: Bedside Glucose 256 mg/dL (74-106)
[2023-06-13] MEDS: Acetaminophen 325 MG Tablet PO (00:36)
[2023-06-13] MEDS: DiphenhydrAMINE 25 MG Capsule PO (00:36)
[2023-06-13 00:37] VITALS: BP 175/85; PULSE 79; RESP 16; TEMP 36.4; O2SAT 98
[2023-06-13 00:45] VITALS: PULSE 79
[2023-06-13] MEDS: hydrALAZINE 20 MG/ML Vial 5 MG IV (00:45)
[2023-06-13 05:07] VITALS: BP 137/59; PULSE 76; RESP 16; TEMP 36.7; O2SAT 96
[2023-06-13 06:02] LABS: Bedside Glucose 209 mg/dL (74-106)
[2023-06-13 06:46] LABS: Absolute Lymphocyte Count 1.66 X10^3/uL (0.83-4.51); Absolute Neutrophil Count 3.9 X10^3/uL (2.0-7.7); Basophil# 0.04 X10^3/uL; Basophil% 0.6 % (0-1); Eosinophil# 0.47 X10^3/uL; Eosinophils% 6.8 % (0-5); Hematocrit 38.7 % (37-47); Lymphocyte # 1.66 X10^3/ul (0.83-4.51); Lymphocyte % 24.1 % (19-41); Mean Corp Hgb Conc 33.6 g/dL (32-36); Mean Corpuscular Hgb 30.3 pg (27.0-32.0); Mean Corpuscular Volume 90.2 fL (81-99); Monocyte# 0.77 X10^3/uL; Monocyte% 11.2 % (0-10); NRBC Flagged by Analyzer 0 % (0-5); Neutrophil # 3.93 X10^3/uL (2.7-7.7); Neutrophil % 56.9 % (47-70); Platelet Count 213 K/mm3 (150-450); RBC Distribution Width CV 13.2 % (11.6-14.6); RBC Distribution Width SD 43.2 fl (35.1-43.9); Red Blood Count 4.29 M/mm3 (4.2-5.4); White Blood Count 6.9 K/mm3 (4.4-11.0)
[2023-06-13 07:11] LABS: Anion Gap 3 (5-15); BUN 12 mg/dL (7-18); BUN/Creat Ratio 18.5 RATIO (10-20); Calcium,Total 8.7 mg/dL (8.5-10.1); Chloride 108 mmol/L (98-107); Creatinine, Serum 0.65 mg/dL (0.55-1.02); EST Glomerular Filtration Rate 93 mL/min (>60); Est Glom Filt Rate - Afr Amer 113 mL/min (>60); Glucose 223 mg/dL (74-106); Magnesium 1.9 mg/dL (1.6-2.6); Phosphorus 2.7 mg/dL (2.5-4.9); Potassium 3.5 mmol/L (3.5-5.1); Sodium Level 138 mmol/L (136-145)
[2023-06-13] MEDS: Aspirin 81 MG TAB.CHEW PO (07:46)
[2023-06-13] MEDS: Insulin Lispro 100 UNIT/ML INSULN.PEN 24 UNIT SC (07:46)
[2023-06-13] MEDS: Insulin Lispro 100 UNIT/ML INSULN.PEN SC ×2 (07:47→12:05)
[2023-06-13] MEDS: Glucerna Shake 120 ML LIQUID PO ×2 (07:47→12:05)
[2023-06-13 08:03] VITALS: BP 151/70; PULSE 73; RESP 18; TEMP 36.6; O2SAT 99
[2023-06-13 08:19] LABS: Bedside Glucose 211 mg/dL (74-106)
--- NOTE | 2023-06-13 08:23 | PCM.PN.HOSP ---
Reason for Visit Reason for Visit: Diagnoses Sepsis, unspecified organism (06/10/23) Other specified diabetes mellitus without complications (06/10/23) Acute cystitis without hematuria (06/10/23) Severe sepsis without septic shock (06/10/23) Subjective Subjective Patient seen was able to ambulate with therapy. Plan is for patient to be discharged to senior care facility Objective Data Objective Data Vital Signs: Vital Signs Temp Pulse Resp BP Pulse Ox O2 Del Method 98 F 73 18 151/70 H 99 Room Air 06/13/23 08:03 06/13/23 08:03 06/13/23 08:03 06/13/23 08:03 06/13/23 08:03 06/13/23 08:03 Oxygen Delivery Method Room Air Weight: 65.544 kg Body Mass Index (BMI) 26.4 Intake & Output: Intake and Output for Last 24 Hours 06/11/23 06/12/23 06/13/23 23:59 23:59 23:59 Intake Total 1440 / 1740 2435 / 2735 400 / 400 Output Total 450 / 850 850 / 1450 850 / 850 Balance 990 / 890 1585 / 1285 -450 / -450 Lab / Micro Data 06/13/23 06:27 06/13/23 06:27 Labs: Laboratory Results - last 24 hr 06/12/23 08:19: POC Glucose 247 H 06/12/23 11:52: POC Glucose 256 H 06/12/23 16:15: POC Glucose 159 H 06/12/23 21:09: POC Glucose 256 H 06/13/23 05:05: POC Glucose 209 H 06/13/23 06:27: WBC 6.9, RBC 4.29, Hgb 13.0, Hct 38.7, MCV 90.2, MCH 30.3, MCHC 33.6, RDW Std Deviation 43.2, RDW Coeff of Win 13.2, Plt Count 213, MPV 10.0, Immature Gran % (Auto) 0.400, Neut % (Auto) 56.9, Lymph % (Auto) 24.1, [place] % (Auto) 11.2 H, Eos % (Auto) 6.8 H, Baso % (Auto) 0.6, Absolute Neuts (auto) 3.9, Absolute Lymphs (auto) 1.66, Nucleated RBC % 0, Sodium 138, Potassium 3.5, Chloride 108 H, Carbon Dioxide 27.0, Anion Gap 3 L, BUN 12, Creatinine 0.65, Estim Creat Clear Calc 34.90, Est GFR (MDRD) Af Amer 113, Est GFR (MDRD) Non-Af 93, BUN/Creatinine Ratio 18.5, Glucose 223 H, Calcium 8.7, Phosphorus 2.7, Magnesium 1.9 06/13/23 07:44: POC Glucose 211 H Micro: Microbiology 06/10/23 18:00 Urine Catheter - Catheter Urine Culture - Final Culture exhibits no growth. 06/10/23 18:00 Nasal Secretion SARS-CoV-2 Antigen (Rapid) - Final Physical Exam Narrative GENERAL: cooperative HEENT: Atraumatic; normocephalic EYES; Anicteric, Normal Conjunctiva NECK; supple, normal thyroid, RESPIRATORY: Diminished to auscultation CARDIOVASCULAR: Regular S1 S2, GI: soft, normoactive bowel sounds, : No Renal angle tenderness; EXTREMITIES: No edema, no clubbing, MUSCULOSKELETAL: no muscle wasting NEURO: Awake; no lateralizing signs. SKIN: No Rash PSYCH; Flat affect Assessment & Plan Assessment/Plan (1) Sepsis: QUALIFIERS: Sepsis acute organ dysfunction status: with acute organ dysfunction Sepsis type: sepsis due to unspecified organism Severe sepsis acute organ dysfunction type: unspecified Severe sepsis shock status: without septic shock Qualified Code(s): A41.9 - Sepsis, unspecified organism; R65.20 - Severe sepsis without septic shock (2) UTI (urinary tract infection): QUALIFIERS: Hematuria presence: without hematuria Urinary tract infection type: acute cystitis Qualified Code(s): N30.00 - Acute cystitis without hematuria (3) Diabetes 1.5, managed as type 1: PLAN: Plan Patient is an 83-year-old lady admitted with sepsis secondary to UTI 1. Sepsis -secondary to UTI patient was managed per protocol urine culture sent however came back negative patient was discharged on cefdinir 2. Left leg pain ? Patient underwent extensive work-up which failed to diagnose the etiology of the pain patient prescribed with a trial of gabapentin 3. Diabetes mellitus type 2 ? Oral agent held please on Accu-Cheks ACHS with sliding scale coverage 4. Hypertension - Blood pressure controlled, home medications continued with dose adjustment as needed 5. Dyslipidemia -Patient is on statin therapy, continued at home dose 6. GERD ? On PPI 7. History of CVA ? With no residual effects PT OT as tolerated 7. Depression with anxiety ? Did continue home meds 8. DVT prophylaxis ? SC Lovenox 9. Physical deconditioning - Requested for PT OT eval and director social service to assist with discharge planning Time spent in the patient's overall evaluation,decision-making process, review of diagnostic data, adjustment of management, discussion with other providers, nursing nursing and ancillary staff involved in patient's care documentation, 40 Minutes Charges/Coding Visit Charges Inpatient E&M: 12896 Subs Hosp L2
[2023-06-13] MEDS: Tolterodine Tartrate 4 MG CAP.SA PO (09:41)
[2023-06-13] MEDS: Furosemide 20 MG Tablet PO (09:41)
[2023-06-13] MEDS: Pyridoxine HCl 100 MG Tablet 250 MG PO (09:41)
[2023-06-13 09:42] VITALS: PULSE 73
[2023-06-13] MEDS: Enoxaparin 40 MG/0.4 ML Syringe SC (09:42)
[2023-06-13] MEDS: Cholecalciferol (VIT D3) 25 MCG TABLET (1,000 UNITS) PO (09:42)
[2023-06-13] MEDS: Metoprolol(XL)Succ 200 MG Tablet PO (09:42)
[2023-06-13] MEDS: DULoxetine Hcl 30 MG Capsule PO (09:42)
[2023-06-13] MEDS: Pantoprazole Sodium 40 MG Tablet PO (09:42)
[2023-06-13] MEDS: LORazepam 0.5 MG Tablet PO (09:42)
[2023-06-13] MEDS: Miconazole Nitrate 43 GM Bottle 1 APPLIC TOPICAL (09:43)
--- NOTE | 2023-06-13 10:06 | PCM.TXEXTCAR ---
Diet Diet Order/Speech Therapy: 06/10/23 21:12 Diet: Consistent Carb - Calorie Controlled Food consistency:: Regular Liquid Consistency:: Regular/Thin How many daily calories?: 1800 calorie Wound(s) left ta: Wound Type: Abrasion Therapies Physical Therapy: Eval and Treat Occupational Therapy: Eval and Treat Problem/Diagnosis (1) Sepsis: Status: Acute Code(s): A41.9 - Sepsis, unspecified organism (2) UTI (urinary tract infection): Status: Acute Code(s): N39.0 - Urinary tract infection, site not specified (3) Diabetes 1.5, managed as type 1: Status: Chronic Code(s): E13.9 - Other specified diabetes mellitus without complications Plan Patient is an 83-year-old lady admitted with sepsis secondary to UTI 1. Sepsis -secondary to UTI patient was managed per protocol urine culture sent however came back negative patient was discharged on cefdinir 2. Left leg pain ? Patient underwent extensive work-up which failed to diagnose the etiology of the pain patient prescribed with a trial of gabapentin 3. Diabetes mellitus type 2 ? Oral agent held please on Accu-Cheks ACHS with sliding scale coverage 4. Hypertension - Blood pressure controlled, home medications continued with dose adjustment as needed 5. Dyslipidemia -Patient is on statin therapy, continued at home dose 6. GERD ? On PPI 7. History of CVA ? With no residual effects PT OT as tolerated 7. Depression with anxiety ? Did continue home meds 8. DVT prophylaxis ? SC Lovenox 9. Physical deconditioning - Requested for PT OT eval and community mental health social worker to assist with discharge planning Time spent in the patient's overall evaluation,decision-making process, review of diagnostic data, adjustment of management, discussion with other providers, nursing nursing and ancillary staff involved in patient's care documentation, 40 Minutes Allergies/Procedures Done in Hospital Allergies adhesive tape Allergy (Verified 06/10/23 17:02) Hives/Rash ciprofloxacin [From Cipro] Allergy (Verified 06/10/23 17:02) Photosensitivity & dermatitis pioglitazone [From Actos] Allergy (Verified 06/10/23 17:02) Unknown codeine Adverse Reaction (Verified 06/10/23 17:02) Upset Stomach ibandronate sodium [From Boniva] Adverse Reaction (Verified 06/10/23 17:02) GI upset/esophageal burning ibuprofen Adverse Reaction (Verified 06/10/23 17:02) GI upset Iodinated Contrast Media [CONTRASTS] Adverse Reaction (Verified 06/10/23 17:02) Vomiting iodine Adverse Reaction (Verified 06/10/23 17:02) Vomiting lansoprazole Adverse Reaction (Verified 06/10/23 17:02) Diarrhea metformin Adverse Reaction (Verified 06/10/23 17:02) Diarrhea miconazole [From Neosporin AF] Adverse Reaction (Verified 06/10/23 17:02) Rash/Blisters nabumetone [From Relafen] Adverse Reaction (Verified 06/10/23 17:02) GI upset pantoprazole [From Protonix] Adverse Reaction (Verified 06/10/23 17:02) Diarrhea sucralfate [From Carafate] Adverse Reaction (Verified 06/10/23 17:02) feels poorly Type of Care/Length of Stay Estimated LOS: Convalescent Care Less Than 30 days Type of Care Needed: Skilled Rehab Potential: Good Prognosis: Good Additional Orders/Day of Discharge Day of Discharge: 06/13/23 Dietary and Speech Recommendations Dietitian Recommendations/Changes: Will change diet to 1600 robb Consistent CHO as more in line with what pt is trying to do at home Will continue Glucerna shake w/ meals for increased nutrition until po intake consistently better Discharge Plan Admission Admit Date/Time: 06/10/23 20:22 Attending Provider: Nacho Poe Primary Care Provider: Emily Yun Consulting Providers: Edwin Morgan; Rubin Houser Discharge Orders/Prescriptions Prescriptions: New cefdinir 300 mg capsule 300 mg PO BID Qty: 10 0RF gabapentin 100 mg capsule 100 mg PO BID Qty: 60 0RF Continued lorazepam 1 mg tablet 1 mg PO DAILY cranberry 500 mg capsule 500 mg PO BID Rx Instructions: administer with meals fesoterodine [Toviaz] 4 mg tablet extended release 24 hr 8 mg PO DAILY albuterol sulfate 90 mcg/actuation HFA aerosol inhaler 2 puff inhalation Q6H PRN (Reason: shortness of breath or wheezing) Qty: 6.7 3RF cephalexin 250 mg capsule 250 mg PO QHS pyridoxine (vitamin B6) 250 mg tablet 250 mg PO DAILY insulin glargine [Lantus Solostar U-100 Insulin] 100 unit/mL (3 mL) insulin pen 20 unit SC QHS insulin aspart U-100 [Novolog FlexPen U-100 Insulin] 100 unit/mL (3 mL) insulin pen 34 unit SC BREAKFAST duloxetine 60 mg capsule,delayed release(DR/EC) 60 mg PO QHS Qty: 30 5RF duloxetine 30 mg capsule,delayed release(DR/EC) 30 mg PO QAM Qty: 30 5RF metoprolol succinate 200 MG tablet extended release 24 hr 200 mg PO DAILY Patient Comments: BLOOD PRESSURE/HEART cholecalciferol (vitamin D3) 1,000 UNIT tablet 1,000 unit PO DAILY Patient Comments: SUPPLEMENT esomeprazole magnesium 40 MG capsule,delayed release(DR/EC) 40 mg PO DAILY aspirin 81 MG tablet,chewable 81 mg PO DAILY@0800 Qty: 30 0RF insulin aspart U-100 [Novolog FlexPen U-100 Insulin] 100 unit/mL (3 mL) insulin pen 20 unit subcut TID rosuvastatin 10 mg tablet 5 mg PO QHS furosemide [Lasix] 20 mg tablet 20 mg PO DAILY omeprazole 40 mg capsule,delayed release(DR/EC) 40 mg PO DAILY (DME) pen needle, diabetic [BD Ultra-Fine Micro Pen Needle] 32 gauge x 1/4 needle See Rx Instructions .ROUTE .MEDSUPPLY Qty: 450 1RF Rx Instructions: 4x/day (DME) OneTouch Verio test strips Strip See Rx Instructions .ROUTE .MEDSUPPLY Qty: 100 3RF Rx Instructions: daily Jardiance 25 mg tablet 25 mg PO DAILY Qty: 30 6RF Referrals / Follow Up: Emily Yun MD [Primary Care Provider] - 06/15/23 9:40 am Disposition Disposition (needs filled in before D/C Order can be placed): Residential Facility (1) Sepsis Qualifiers: Sepsis type: sepsis due to unspecified organism Sepsis acute organ dysfunction status: with acute organ dysfunction Severe sepsis acute organ dysfunction type: unspecified Severe sepsis shock status: without septic shock Qualified Code(s): A41.9 - Sepsis, unspecified organism; R65.20 - Severe sepsis without septic shock (2) UTI (urinary tract infection) Qualifiers: Urinary tract infection type: acute cystitis Hematuria presence: without hematuria Qualified Code(s): N30.00 - Acute cystitis without hematuria
--- NOTE | 2023-06-13 10:43 | CASEMGMT ---
Social Work Per physician, pt is ready for discharge today. Discharge orders faxed to TCU and Kimberly in TCU updated. [place]ON met with pt's spouse and updated on discharge to TCU today. Spouse agreeable and will notify pt when she is available. Nursing updated. Disposition: TCU, skilled level of care ALEXANDRIA Aguillon
[2023-06-13 12:00] VITALS: BP 131/75; PULSE 92; RESP 18; TEMP 36.8; O2SAT 100
[2023-06-13] MEDS: Insulin Lispro 100 UNIT/ML INSULN.PEN 16 UNIT SC (12:05)
[2023-06-13 12:28] LABS: Bedside Glucose 335 mg/dL (74-106)
== END 2023-06-13 13:25 | disposition skilled nursing facility (03) | DRG 872 ==
LOC: ED 17:24 → MS3 06-11 07:10
PROVIDERS: Family Medicine; Admitting Provider Hospitalist; Emergency Provider Emergency Medicine; PCP Internal Medicine; Visit Provider Internal Medicine
DX: A41.9 Sepsis, unspecified organism (principal); E87.20 Acidosis, unspecified; N30.00 Acute cystitis without hematuria; E11.9 Type 2 diabetes mellitus without complications; R65.20 Severe sepsis without septic shock; Z79.4 Long term (current) use of insulin; I10 Essential (primary) hypertension; E78.5 Hyperlipidemia, unspecified; F41.8 Other specified anxiety disorders; K21.9 Gastro-esophageal reflux disease without esophagitis; M79.605 Pain in left leg; Z79.83 Long term (current) use of bisphosphonates; Z79.84 Long term (current) use of oral hypoglycemic drugs; Z79.82 Long term (current) use of aspirin; Z80.0 Family history of malignant neoplasm of digestive organs; Z86.73 Personal history of transient ischemic attack (TIA), and cerebral infarction without residual deficits
CPT/HCPCS: 36415; 71045; 73590; 80048; 80053; 82009; 82550; 82962; 83605; 83735; 84100; 85025; 85610; 85730; 87040; 87086; 87811; 93005; 93971; 94762; 97162; 97166; 97530; 97535; 97802; 99285; J7030; A4216; J2405

== ENCOUNTER 2023-06-13 13:44 | Inpatient (IN) | payer MEDICARE, OTHER, SELFPAY ==
[2023-06-13 14:22] VITALS: BP 144/76; PULSE 85; RESP 16; TEMP 36.1; O2SAT 96; BMI 26.7
[2023-06-13 14:58] VITALS: BMI 26.9
--- NOTE | 2023-06-13 15:37 | HP.PCM_ITS ---
HPI - General General Date of Admission: 06/13/23 Date of Service: 06/13/23 Chief Complaint: Here for rehabilitation. HPI Narrative 06/10/2023 CHRISTINA IVORY, is a 83 Female who presents to [facility] Emergency Department with weakness. Recent urinary tract infection, on nitrofurantoin from Dr. Don, unable to tolerate secondary to nausea/vomiting. Nausea/vomiting x 2 days, left anterior ta pain. WBC 12.9, Lactic acid 2.9. IV fluids helpful, X-ray left tibia/fibula negative. Unsteady, weak, almost fell. Rocephin 1gm IV given for urinary tract infection, Zofran given for nausea. 06/10/2023 Admit to Hosp[facility]. Rocephin IV for urinary tract infection, urine culture pending, blood culture pending. Doppler ultrasound left lower extremity for left lower extremity pain. PT/OT for debility. 06/11/2023 Leukocytosis resolved. Rocephin IV for urinary tract infection, on low dose Keflex suppressive therapy at home, she has quinolone allergy. Doppler ultrasound left lower extremity negative DVT. 06/12/2023 Urine culture negative, Discontinue Cefdinir. Rx Gabapentin for left lower extremity pain, etiology unknown. 06/13/2023 Able to walk with therapy. PT/OT for SNF. 06/13/2023 Admit to TCU with debility, here for rehabililtation, strengtening, prior to discharge home with . [facility] Medical History (Updated 06/13/23 @ 15:[address] Denzel Forbes MD) Accelerated essential hypertension Acute chest pain Acute gastritis Anxiety C. 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 disease Chronic cough Depression Enlargement of lymph nodes Esophagitis Essential (primary) hypertension Fatigue GERD (gastroesophageal reflux disease) History of ischemic stroke IBS (irritable bowel syndrome) Macular degeneration Migraine Migraine without aura, not intractable, without status migrainosus Overweight (BMI 25.0-29.9) Restless legs Home Medications cholecalciferol (vitamin D3) 25 mcg (1,000 unit) tablet 1,000 unit PO DAILY supplement 03/13/17 [History Last Taken 06/13/23] metoprolol succinate 200 mg tablet,extended release 24 hr 200 mg PO DAILY heart 08/01/17 [History Last Taken 01/01/20] lorazepam 1 mg tablet 1 mg PO DAILY anxiety 08/28/18 [History Last Taken 01/01/20] esomeprazole magnesium 40 mg capsule,delayed release 40 mg PO DAILY gerd 01/01/20 [History Last Taken 06/13/23] aspirin 81 mg chewable tablet 81 mg PO DAILY@0800 heart ##30 01/03/20 [Rx Last Taken Unknown] cranberry 500 mg capsule 500 mg PO BID UTI 03/15/21 [History Last Taken Unknown] fesoterodine 4 mg tablet,extended release 24 hr (Toviaz) 8 mg PO DAILY bladder 10/10/21 [History Last Taken Unknown] pen needle, diabetic 32 gauge x 1/4 (BD Ultra-Fine Micro Pen Needle) #450 ea 12/14/21 [Rx Last Taken Unknown] blood sugar diagnostic (Fanbouts Verio test strips) #100 ea 12/25/22 [Rx Last Taken Unknown] cephalexin 250 mg capsule 250 mg PO QHS antibiotic 02/06/23 [History Last Taken Unknown] pyridoxine (vitamin B6) 250 mg tablet 250 mg PO DAILY vitamin 02/06/23 [History Last Taken Unknown] insulin aspart U-100 100 unit/mL (3 mL) subcutaneous pen (Novolog FlexPen U-100 Insulin aspart) 34 unit subcut BREAKFAST diabetes 03/05/23 [History Last Taken Unknown] insulin glargine 100 unit/mL (3 mL) subcutaneous pen (Lantus Solostar U-100 Insu digna) 20 unit subcut QHS dm 03/05/23 [History Last Taken 06/12/23] albuterol sulfate 90 mcg/actuation aerosol inhaler 2 puff inhalation Q6H PRN shortness of breath or wheezing #6.7 grams 03/07/23 [Rx Last Taken Unknown] empagliflozin 25 mg tablet (Jardiance) 25 mg PO DAILY diabetes #30 tabs 05/23/23 [Rx Last Taken Unknown] duloxetine 30 mg capsule,delayed release 30 mg PO QAM mood #30 caps 06/07/23 [Rx Last Taken Unknown] duloxetine 60 mg capsule,delayed release 60 mg PO QHS mood #30 caps 06/07/23 [Rx Last Taken Unknown] insulin aspart U-100 100 unit/mL (3 mL) subcutaneous pen (Novolog FlexPen U-100 Insulin aspart) 20 unit subcut TID dm 06/10/23 [History Last Taken Unknown] furosemide 20 mg tablet (Lasix) 20 mg PO DAILY bp 06/11/23 [History Last Taken Unknown] omeprazole 40 mg capsule,delayed release 40 mg PO DAILY gerd 06/11/23 [History Last Taken Unknown] rosuvastatin 10 mg tablet 5 mg PO QHS hld 06/11/23 [History Last Taken Unknown] cefdinir 300 mg capsule 300 mg PO BID antibiotic #10 caps 06/12/23 [Rx Last Taken Unknown] gabapentin 100 mg capsule 100 mg PO BID neuropathy #60 caps 06/12/23 [Rx Last Taken Unknown] Allergy/AdvReac Type Severity Reaction Status Date / Time adhesive tape Allergy Hives/Rash Verified 06/10/23 17:02 ciprofloxacin [From Cipro] Allergy Photosensitivity Verified 06/10/23 17:02 & dermatitis pioglitazone [From Actos] Allergy Unknown Verified 06/10/23 17:02 codeine AdvReac Upset Verified 06/10/23 17:02 Stomach ibandronate sodium AdvReac GI Verified 06/10/23 17:02 [From Boniva] upset/esophageal burning ibuprofen AdvReac GI upset Verified 06/10/23 17:02 Iodinated Contrast Media AdvReac Vomiting Verified 06/10/23 17:02 [CONTRASTS] iodine AdvReac Vomiting Verified 06/10/23 17:02 lansoprazole AdvReac Diarrhea Verified 06/10/23 17:02 metformin AdvReac Diarrhea Verified 06/10/23 17:02 miconazole AdvReac Rash/Bliste Verified 06/10/23 17:02 [From Neosporin AF] rs nabumetone [From Relafen] AdvReac GI upset Verified 06/10/23 17:02 pantoprazole [From Protonix] AdvReac Diarrhea Verified 06/10/23 17:02 sucralfate [From Carafate] AdvReac feels Verified 06/10/23 17:02 poorly Family History Father Lung cancer Colon cancer Mother Mesothelioma Hypertension Grandmother Heart disease Surgical History H/O endoscopy History of lung biopsy Hx of cataract surgery nerve block S/P lobectomy of lung S/P rotator cuff repair Spinal injections Social History household members: spouse housing: house pets and animals: No Smoking Status: Never smoker second hand exposure: No alcohol intake: current alcohol intake frequency: holidays/special occasions only substance use type: does not use ROS Constitutional Constitutional: Denies chills, fever(s) or weight gain ENT HEENT: Denies headache(s), nasal congestion or nasal discharge Cardiovascular Cardiovascular: Denies chest pain or palpitations Respiratory/Chest Respiratory/Chest: Denies cough, excessive phlegm production or shortness of breath with exertion Gastrointestinal Gastrointestinal: Denies abdominal pain, nausea or vomiting Genitourinary Genitourinary: Denies dysuria Musculoskeletal Musculoskeletal: Denies joint pain or joint swelling Integumentary Integumentary: Denies rash or wounds Neurologic Neurologic: Denies focal weakness, numbness or tingling Psychiatric Psychiatric: Denies anxiety, auditory hallucinations, depression, homicidal ideation or suicidal ideation Vital Signs Vital Signs Vital Signs: 06/13/23 14:22 06/13/23 14:22 Temperature 97.0 F L Temperature Source Temporal Pulse Rate 85 85 Pulse Rhythm Regular Pulse Strength Normal (2+) Respiratory Rate 16 16 Respiratory Effort Normal Non-Labored Respiratory Depth Normal Respiratory Pattern Normal Blood Pressure 144/76 H Blood Pressure Mean 98 Blood Pressure Source Monitor Blood Pressure Position Sitting Pulse Ox 96 96 Oxygen Delivery Method Room Air Room Air Weight Weight: 66.361 kg Body Mass Index (BMI) 26.7 Physical Exam Const alert General Appearance: cooperative HEENT normocephalic Eyes PERRL and EOMs intact bilaterally Neck supple, no JVD and no carotid bruits Resp normal respiratory effort, normal air movement and clear to auscultation bilaterally Cardio regular rate and regular rhythm GI normal to inspection, nondistended, normoactive bowel sounds, non-tender and non-distended Extremity normal capillary refill General Extremity: Negative for edema Skin no rashes or lesions noted General Skin Exam: no breakdown Psych affect normal Appearance: appropriate Assessment & Plan Assessment/Plan (1) Debility: (2) Sepsis: QUALIFIERS: Sepsis acute organ dysfunction status: with acute organ dysfunction Sepsis type: sepsis due to unspecified organism Severe sepsis acute organ dysfunction type: unspecified Severe sepsis shock status: without septic shock Qualified Code(s): A41.9 - Sepsis, unspecified organism; R65.20 - Severe sepsis without septic shock (3) UTI (urinary tract infection): QUALIFIERS: Hematuria presence: without hematuria Urinary tract infection type: acute cystitis Qualified Code(s): N30.00 - Acute cystitis without hematuria (4) Dehydration: (5) Hypertension: (6) Anxiety: (7) GERD (gastroesophageal reflux disease): (8) Type 2 diabetes mellitus with hyperglycemia: (9) Hyperlipidemia: (10) Depression: (11) History of lung cancer: (12) Recurrent UTI: (13) History of stroke: PLAN: Plan 83 year old female with below past medical history hospitalized for sepsis, urinary tract infection, dehydration, admitted to TCU with debility, here for rehabilitation, strengthening, prior to discharge home with . * Debility - PT/OT. * Pain - Tylenol 1000mg q6 prn pain (1-10). * Bowel - senna/colace 1 tablet bid, Magnesium citrate 300ml daily prn. * Adult immunization - Administer pneumonia vaccine, covid19 vaccine, flu vaccine as appropriate. * DVT prophylaxis - Lovenox 40mg sc daily. * Shortness of breath - Albuterol MDI 2 puffs q6h prn * History of stroke - Aspirin 81mg daily. * Hyperlipidemia - Atorvastatin 10mg qhs. * Urinary tract infection - Cefdinir 300mg bid thru 06/18/2023. * Vitamin D deficiency - D3 25mcg daily,. 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 * Diabetes Mellitus II - Jardiance 25mg daily, Glargine 20 units qhs, Lispro 20 units tid. * Edema - Furosemide 20mg daily. * Left lower extremity pain - Order CT left tibia/fibula no contrast to rule out stress fracture, Gabapentin 100mg bid. 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 * Skin irritation - Calmoseptine topical bid. * Hypertension - Metoprolol succinate 200mg daily. * Tinea Corporis - Nystatin powder topical bid. * GERD - Pantoprazole 40mg daily. * Vitamin B-6 deficiency - B-6 250mg daily. * Overactive bladder - Tolterodine 4mg daily.
[2023-06-13] MEDS: Insulin Lispro 100 UNIT/ML INSULN.PEN 20 UNIT SC (18:26)
[2023-06-13 18:49] LABS: Bedside Glucose 206 mg/dL (74-106)
[2023-06-13 21:26] LABS: Bedside Glucose 212 mg/dL (74-106)
[2023-06-13] MEDS: Menthol/Lanolin/Calamine/Znox 113 GM Tube 1 APPLIC TOPICAL (21:33)
[2023-06-13] MEDS: Gabapentin 100 MG Capsule PO (21:33)
[2023-06-13] MEDS: Insulin Glargine-YFGN 100 UNIT/ML Pen 20 UNIT SC (21:35)
[2023-06-13] MEDS: Atorvastatin Calcium 10 MG Tablet PO (21:35)
[2023-06-13] MEDS: Cefdinir 300 MG Capsule PO (21:35)
[2023-06-13] MEDS: DULoxetine Hcl 60 MG Capsule PO (21:36)
[2023-06-13] MEDS: Senna/Docusate Sodium 1 Tablet PO (21:36)
[2023-06-14] MEDS: Enoxaparin 40 MG/0.4 ML Syringe SC (05:11)
[2023-06-14 06:04] LABS: Absolute Lymphocyte Count 1.94 X10^3/uL (0.83-4.51); Absolute Neutrophil Count 3.6 X10^3/uL (2.0-7.7); Basophil# 0.03 X10^3/uL; Basophil% 0.4 % (0-1); Eosinophil# 0.38 X10^3/uL; Eosinophils% 5.6 % (0-5); Hematocrit 36.7 % (37-47); Hemoglobin 12.5 g/dL (12.0-15.0); Lymphocyte # 1.94 X10^3/ul (0.83-4.51); Lymphocyte % 28.8 % (19-41); Mean Corp Hgb Conc 34.1 g/dL (32-36); Mean Corpuscular Hgb 31.2 pg (27.0-32.0); Mean Corpuscular Volume 91.5 fL (81-99); Mean Platelet Vol. 9.6 fl (6.2-12.0); Monocyte# 0.75 X10^3/uL; Monocyte% 11.1 % (0-10); NRBC Flagged by Analyzer 0 % (0-5); Neutrophil # 3.61 X10^3/uL (2.7-7.7); Neutrophil % 53.7 % (47-70); Platelet Count 218 K/mm3 (150-450); RBC Distribution Width CV 13.5 % (11.6-14.6); RBC Distribution Width SD 45.3 fl (35.1-43.9); Red Blood Count 4.01 M/mm3 (4.2-5.4); White Blood Count 6.7 K/mm3 (4.4-11.0)
[2023-06-14 06:23] LABS: Bedside Glucose 258 mg/dL (74-106)
[2023-06-14 06:56] LABS: Anion Gap 7 (5-15); BUN 16 mg/dL (7-18); BUN/Creat Ratio 23.6 RATIO (10-20); Calcium,Total 8.5 mg/dL (8.5-10.1); Chloride 104 mmol/L (98-107); Creatinine, Serum 0.68 mg/dL (0.55-1.02); EST Glomerular Filtration Rate 89 mL/min (>60); Est Glom Filt Rate - Afr Amer 107 mL/min (>60); Glucose 258 mg/dL (74-106); Potassium 3.6 mmol/L (3.5-5.1); Sodium Level 138 mmol/L (136-145)
[2023-06-14] MEDS: Furosemide 20 MG Tablet PO (08:28)
[2023-06-14] MEDS: Aspirin 81 MG TAB.CHEW PO (08:30)
[2023-06-14] MEDS: Cholecalciferol (VIT D3) 25 MCG TABLET (1,000 UNITS) PO (08:30)
[2023-06-14] MEDS: Insulin Lispro 100 UNIT/ML INSULN.PEN 20 UNIT SC ×3 (08:30→17:44)
[2023-06-14 08:31] VITALS: BP 147/69; PULSE 81
[2023-06-14] MEDS: LORazepam 1 MG Tablet PO (08:31)
[2023-06-14] MEDS: Senna/Docusate Sodium 1 Tablet PO ×2 (08:31→20:51)
[2023-06-14] MEDS: DULoxetine Hcl 30 MG Capsule PO (08:31)
[2023-06-14] MEDS: Gabapentin 100 MG Capsule PO ×2 (08:31→20:51)
[2023-06-14] MEDS: Tolterodine Tartrate 4 MG CAP.SA PO (08:31)
[2023-06-14] MEDS: Pantoprazole Sodium 40 MG Tablet PO (08:31)
[2023-06-14] MEDS: Metoprolol(XL)Succ 200 MG Tablet PO (08:31)
[2023-06-14] MEDS: Cefdinir 300 MG Capsule PO ×2 (08:32→20:52)
[2023-06-14] MEDS: Empagliflozin 25 MG Tablet PO (08:32)
[2023-06-14] MEDS: Menthol/Lanolin/Calamine/Znox 113 GM Tube 1 APPLIC TOPICAL ×2 (08:38→20:52)
[2023-06-14 09:20] LABS: Bedside Glucose 369 mg/dL (74-106)
[2023-06-14] MEDS: Clotrimazole 1 APPLIC Tube TOPICAL ×2 (11:06→20:53)
[2023-06-14 11:40] LABS: Bedside Glucose 230 mg/dL (74-106)
[2023-06-14] MEDS: Pyridoxine HCl 100 MG Tablet 250 MG PO (11:44)
[2023-06-14] MEDS: Tuberculin,Purif.prot.deriv. 50 TU/ML Vial 0.1 ML ID (11:46)
[2023-06-14 14:58] VITALS: BP 132/64; PULSE 78; RESP 16; TEMP 35.8; O2SAT 95
[2023-06-14 16:54] LABS: Bedside Glucose 112 mg/dL (74-106)
--- NOTE | 2023-06-14 17:46 | NURSING ---
Dr. Forbes updated on pts BS of 112. Per Dr. Forbes give 1x dose of 10 units of Humalog instead of 20units.
[2023-06-14] MEDS: MELATONIN 10 MG TABLET PO (20:51)
[2023-06-14] MEDS: Atorvastatin Calcium 10 MG Tablet PO (20:52)
[2023-06-14] MEDS: Insulin Glargine-YFGN 100 UNIT/ML Pen 20 UNIT SC (20:52)
[2023-06-14] MEDS: DULoxetine Hcl 60 MG Capsule PO (20:52)
[2023-06-14] MEDS: Nystatin Powder 15gm Bottle 1 APPLIC TOPICAL (20:53)
[2023-06-14 21:11] LABS: Bedside Glucose 169 mg/dL (74-106)
[2023-06-14 21:34] LABS: Bedside Glucose 157 mg/dL (74-106)
[2023-06-15] MEDS: Enoxaparin 40 MG/0.4 ML Syringe SC (06:19)
[2023-06-15 06:40] LABS: Bedside Glucose 200 mg/dL (74-106)
[2023-06-15] MEDS: Insulin Lispro 100 UNIT/ML INSULN.PEN 20 UNIT SC ×3 (08:00→17:35)
[2023-06-15] MEDS: Aspirin 81 MG TAB.CHEW PO (08:01)
--- NOTE | 2023-06-15 08:42 | NURSING ---
Sleeve Tailor Note; Activity Asset: Brunilda Perez is independent in her choice of daily activities. He will visit daily and bring her items from home. She will watch tv, read and work on word search when not spending time with family. Ana welcomes visits from the hvac project manager and therapy dog when available. Staff will continue to remind her of daily activities and respect her right to say no.
[2023-06-15] MEDS: DULoxetine Hcl 30 MG Capsule PO (08:57)
[2023-06-15] MEDS: LORazepam 1 MG Tablet PO (08:57)
[2023-06-15] MEDS: Gabapentin 100 MG Capsule PO ×2 (08:57→22:28)
[2023-06-15] MEDS: Empagliflozin 25 MG Tablet PO (08:57)
[2023-06-15] MEDS: Pyridoxine HCl 100 MG Tablet 250 MG PO (08:58)
[2023-06-15] MEDS: Cefdinir 300 MG Capsule PO ×2 (08:58→22:31)
[2023-06-15] MEDS: Pantoprazole Sodium 40 MG Tablet PO (08:58)
[2023-06-15] MEDS: Cholecalciferol (VIT D3) 25 MCG TABLET (1,000 UNITS) PO (08:59)
[2023-06-15] MEDS: Clotrimazole 1 APPLIC Tube TOPICAL ×2 (09:00→22:22)
[2023-06-15] MEDS: Tolterodine Tartrate 4 MG CAP.SA PO (09:00)
[2023-06-15] MEDS: Menthol/Lanolin/Calamine/Znox 113 GM Tube 1 APPLIC TOPICAL ×2 (09:02→22:22)
[2023-06-15 09:05] VITALS: BP 151/76; PULSE 86
[2023-06-15] MEDS: Metoprolol(XL)Succ 200 MG Tablet PO (09:05)
[2023-06-15] MEDS: Furosemide 20 MG Tablet PO (11:01)
[2023-06-15] MEDS: Nystatin Powder 15gm Bottle 1 APPLIC TOPICAL (11:03)
[2023-06-15 11:39] LABS: Bedside Glucose 186 mg/dL (74-106)
[2023-06-15 15:00] VITALS: BP 132/67; PULSE 74; RESP 19; TEMP 36.3; O2SAT 91
[2023-06-15 16:32] LABS: Bedside Glucose 173 mg/dL (74-106)
--- NOTE | 2023-06-15 16:34 | CASEMGMT ---
Social Work Met with patient to complete initial assessment. Introduced self and role. , dtr and MINNA were present. Pt granted permission for this worker to speak with pt with family present. Verified/updated contacts. Educated to Medicare benefit and copay coverage. Pt's goal is to return home with . SW to continue to follow for DC planning. Harmony Bhakta, SAWYER TACKER OFF
[2023-06-15] MEDS: Glucerna Shake 120 ML LIQUID PO (22:28)
[2023-06-15] MEDS: oxyCODONE 5 MG Tablet PO (22:28)
[2023-06-15] MEDS: Atorvastatin Calcium 10 MG Tablet PO (22:30)
[2023-06-15] MEDS: MELATONIN 10 MG TABLET PO (22:30)
[2023-06-15] MEDS: Insulin Glargine-YFGN 100 UNIT/ML Pen 20 UNIT SC (22:30)
[2023-06-15] MEDS: DULoxetine Hcl 60 MG Capsule PO (22:31)
[2023-06-15 22:43] LABS: Bedside Glucose 143 mg/dL (74-106)
[2023-06-16] MEDS: oxyCODONE 5 MG Tablet PO ×2 (02:35→22:48)
[2023-06-16] MEDS: Enoxaparin 40 MG/0.4 ML Syringe SC (05:06)
[2023-06-16 06:58] LABS: Bedside Glucose 246 mg/dL (74-106)
[2023-06-16] MEDS: Insulin Lispro 100 UNIT/ML INSULN.PEN 20 UNIT SC ×3 (08:10→17:52)
[2023-06-16] MEDS: Pyridoxine HCl 100 MG Tablet 250 MG PO (08:11)
[2023-06-16 08:12] VITALS: BP 130/68; PULSE 76
[2023-06-16] MEDS: Metoprolol(XL)Succ 200 MG Tablet PO (08:12)
[2023-06-16] MEDS: Furosemide 20 MG Tablet PO (08:13)
[2023-06-16] MEDS: Pantoprazole Sodium 40 MG Tablet PO (08:13)
[2023-06-16] MEDS: Menthol/Lanolin/Calamine/Znox 113 GM Tube 1 APPLIC TOPICAL (08:13)
[2023-06-16] MEDS: Cholecalciferol (VIT D3) 25 MCG TABLET (1,000 UNITS) PO (08:13)
[2023-06-16] MEDS: Tolterodine Tartrate 4 MG CAP.SA PO (08:13)
[2023-06-16] MEDS: Aspirin 81 MG TAB.CHEW PO (08:13)
[2023-06-16] MEDS: Empagliflozin 25 MG Tablet PO (08:13)
[2023-06-16] MEDS: Cefdinir 300 MG Capsule PO ×2 (08:13→22:41)
[2023-06-16] MEDS: DULoxetine Hcl 30 MG Capsule PO (08:13)
[2023-06-16] MEDS: Glucerna Shake 120 ML LIQUID PO ×2 (08:15→22:42)
[2023-06-16] MEDS: Gabapentin 100 MG Capsule PO ×2 (10:53→22:48)
[2023-06-16] MEDS: LORazepam 1 MG Tablet PO (10:53)
[2023-06-16 11:37] LABS: Bedside Glucose 227 mg/dL (74-106)
[2023-06-16] MEDS: Clotrimazole 1 APPLIC Tube TOPICAL ×2 (12:19→22:50)
[2023-06-16 14:45] VITALS: BP 126/78; PULSE 73; RESP 12; TEMP 35.9; O2SAT 94
[2023-06-16 16:48] LABS: Bedside Glucose 139 mg/dL (74-106)
[2023-06-16 21:47] LABS: Bedside Glucose 114 mg/dL (74-106)
[2023-06-16] MEDS: DULoxetine Hcl 60 MG Capsule PO (22:39)
[2023-06-16] MEDS: Atorvastatin Calcium 10 MG Tablet PO (22:42)
[2023-06-16] MEDS: MELATONIN 10 MG TABLET PO (22:42)
[2023-06-16] MEDS: Insulin Glargine-YFGN 100 UNIT/ML Pen 20 UNIT SC (22:45)
[2023-06-17] MEDS: Enoxaparin 40 MG/0.4 ML Syringe SC (05:06)
[2023-06-17] MEDS: oxyCODONE 5 MG Tablet PO ×2 (05:37→23:07)
[2023-06-17 06:35] LABS: Bedside Glucose 197 mg/dL (74-106)
[2023-06-17] MEDS: Insulin Lispro 100 UNIT/ML INSULN.PEN 20 UNIT SC ×3 (08:20→18:18)
[2023-06-17] MEDS: Aspirin 81 MG TAB.CHEW PO (08:21)
[2023-06-17] MEDS: Pyridoxine HCl 100 MG Tablet 250 MG PO (08:21)
[2023-06-17 08:22] VITALS: BP 140/70; PULSE 76
[2023-06-17] MEDS: Cefdinir 300 MG Capsule PO ×2 (08:22→23:07)
[2023-06-17] MEDS: Furosemide 20 MG Tablet PO (08:22)
[2023-06-17] MEDS: Tolterodine Tartrate 4 MG CAP.SA PO (08:22)
[2023-06-17] MEDS: Metoprolol(XL)Succ 200 MG Tablet PO (08:22)
[2023-06-17] MEDS: Pantoprazole Sodium 40 MG Tablet PO (08:22)
[2023-06-17] MEDS: Empagliflozin 25 MG Tablet PO (08:23)
[2023-06-17] MEDS: Cholecalciferol (VIT D3) 25 MCG TABLET (1,000 UNITS) PO (08:23)
[2023-06-17] MEDS: DULoxetine Hcl 30 MG Capsule PO (08:23)
[2023-06-17] MEDS: Clotrimazole 1 APPLIC Tube TOPICAL (08:24)
[2023-06-17] MEDS: Menthol/Lanolin/Calamine/Znox 113 GM Tube 1 APPLIC TOPICAL (08:24)
[2023-06-17] MEDS: Glucerna Shake 120 ML LIQUID PO ×2 (08:25→23:01)
[2023-06-17] MEDS: LORazepam 1 MG Tablet PO (10:18)
[2023-06-17] MEDS: Gabapentin 100 MG Capsule PO ×2 (10:18→23:07)
[2023-06-17 11:51] LABS: Bedside Glucose 203 mg/dL (74-106)
[2023-06-17 14:58] VITALS: BP 127/58; PULSE 83; RESP 16; TEMP 36.3; O2SAT 96
[2023-06-17 16:57] LABS: Bedside Glucose 159 mg/dL (74-106)
[2023-06-17 21:56] LABS: Bedside Glucose 182 mg/dL (74-106)
[2023-06-17] MEDS: Insulin Glargine-YFGN 100 UNIT/ML Pen 20 UNIT SC (23:07)
[2023-06-17] MEDS: MELATONIN 10 MG TABLET PO (23:07)
[2023-06-17] MEDS: Atorvastatin Calcium 10 MG Tablet PO (23:09)
[2023-06-17] MEDS: DULoxetine Hcl 60 MG Capsule PO (23:09)
[2023-06-18] MEDS: oxyCODONE 5 MG Tablet PO ×2 (03:11→20:26)
[2023-06-18] MEDS: Acetaminophen 500 MG Tablet 1000 MG PO ×2 (03:12→22:01)
[2023-06-18 06:42] LABS: Bedside Glucose 202 mg/dL (74-106)
[2023-06-18] MEDS: Enoxaparin 40 MG/0.4 ML Syringe SC (06:55)
[2023-06-18] MEDS: Insulin Lispro 100 UNIT/ML INSULN.PEN 20 UNIT SC ×3 (06:56→17:28)
[2023-06-18] MEDS: LORazepam 1 MG Tablet PO (09:57)
[2023-06-18] MEDS: Pyridoxine HCl 100 MG Tablet 250 MG PO (09:58)
[2023-06-18 10:00] VITALS: PULSE 72
[2023-06-18] MEDS: Cholecalciferol (VIT D3) 25 MCG TABLET (1,000 UNITS) PO (10:00)
[2023-06-18] MEDS: Pantoprazole Sodium 40 MG Tablet PO (10:00)
[2023-06-18] MEDS: Aspirin 81 MG TAB.CHEW PO (10:00)
[2023-06-18] MEDS: Metoprolol(XL)Succ 200 MG Tablet PO (10:00)
[2023-06-18] MEDS: Empagliflozin 25 MG Tablet PO (10:01)
[2023-06-18] MEDS: Cefdinir 300 MG Capsule PO (10:01)
[2023-06-18] MEDS: Furosemide 20 MG Tablet PO (10:01)
[2023-06-18] MEDS: Tolterodine Tartrate 4 MG CAP.SA PO (10:01)
[2023-06-18] MEDS: Senna/Docusate Sodium 1 Tablet PO (10:02)
[2023-06-18] MEDS: Menthol/Lanolin/Calamine/Znox 113 GM Tube 1 APPLIC TOPICAL ×2 (10:02→22:01)
[2023-06-18] MEDS: DULoxetine Hcl 30 MG Capsule PO (10:02)
[2023-06-18] MEDS: Gabapentin 100 MG Capsule PO ×2 (10:05→22:01)
[2023-06-18] MEDS: Glucerna Shake 120 ML LIQUID PO ×2 (10:10→22:01)
[2023-06-18] MEDS: Nystatin Powder 15gm Bottle 1 APPLIC TOPICAL (10:12)
[2023-06-18 11:51] LABS: Bedside Glucose 151 mg/dL (74-106)
--- NOTE | 2023-06-18 12:01 | NURSING ---
Offered covid vaccine, VIS provided. Patient refuses at this time.
--- NOTE | 2023-06-18 13:48 | CHAPLAIN ---
Type of Pastoral Visit ___ Initial Visit _x__ Follow-up Visit ___ On-call Visit ___ General Patient Visit ___ Spiritual Assessment ___ Family Conference ___ Bereavement ___ Rapid Response ___ Code Blue ___ Other (describe below) Pastoral Care Referral From _x__ Patient ___ Family ___ Nurse ___ Physician ___ Beef Pluck Trimmer ___ Technical Marketing Consultant ___ Other (describe below) Sacrament/Intervention _x__ Active listening ___ Anointing ___ Oriental Orthodox ___ Bereavement ___ Communion ___ Sharifa exploration ___ ___ Life review _x__ Prayer ___ Reconciliation ___ Sacrament of Sick _x__ Supportive presence ___ Wedding ___ Other (describe below) Pastoral Comments follow up to patient who was seen in [facility] by this link assembler last week; pt reports her surprise at how long she is required to be in hospital and TCU but anticipates a release this week yet; pt says her concern is more for who spends almost all day with her in the hospital; pt was visited by her emt i/85 yesterday; pt has only goal to get home soon; no other needs; prayer is welcomed
[2023-06-18 14:02] VITALS: BP 121/66; PULSE 77; RESP 17; TEMP 35.7; O2SAT 96
[2023-06-18 17:37] LABS: Bedside Glucose 129 mg/dL (74-106)
[2023-06-18 20:32] VITALS: PULSE 77; RESP 16
[2023-06-18 21:28] LABS: Bedside Glucose 104 mg/dL (74-106)
[2023-06-18] MEDS: MELATONIN 10 MG TABLET PO (22:02)
[2023-06-18] MEDS: Atorvastatin Calcium 10 MG Tablet PO (22:02)
[2023-06-18] MEDS: DULoxetine Hcl 60 MG Capsule PO (22:03)
[2023-06-19] MEDS: Enoxaparin 40 MG/0.4 ML Syringe SC (05:03)
[2023-06-19 06:43] LABS: Bedside Glucose 206 mg/dL (74-106)
[2023-06-19] MEDS: Insulin Lispro 100 UNIT/ML INSULN.PEN 20 UNIT SC ×3 (08:22→17:51)
[2023-06-19] MEDS: Aspirin 81 MG TAB.CHEW PO (08:23)
[2023-06-19] MEDS: LORazepam 1 MG Tablet PO (08:23)
[2023-06-19] MEDS: DULoxetine Hcl 30 MG Capsule PO (08:24)
[2023-06-19] MEDS: Empagliflozin 25 MG Tablet PO (08:25)
[2023-06-19] MEDS: Furosemide 20 MG Tablet PO (08:25)
[2023-06-19] MEDS: Tolterodine Tartrate 4 MG CAP.SA PO (08:25)
[2023-06-19] MEDS: Gabapentin 100 MG Capsule PO ×2 (08:25→22:04)
[2023-06-19] MEDS: Senna/Docusate Sodium 1 Tablet PO ×2 (08:26→21:54)
[2023-06-19] MEDS: Pantoprazole Sodium 40 MG Tablet PO (08:26)
[2023-06-19] MEDS: Pyridoxine HCl 100 MG Tablet 250 MG PO (08:27)
[2023-06-19 08:28] VITALS: BP 141/71; PULSE 84
[2023-06-19] MEDS: Cholecalciferol (VIT D3) 25 MCG TABLET (1,000 UNITS) PO (08:28)
[2023-06-19] MEDS: Metoprolol(XL)Succ 200 MG Tablet PO (08:28)
[2023-06-19] MEDS: Acetaminophen 500 MG Tablet 1000 MG PO (08:38)
--- NOTE | 2023-06-19 09:58 | PCM.PN.DRR ---
Documented by User: Migue Campoverde 06/19/23 10:23 TCU RX Drug Regimen Review Subjective/Objective Subjective/Objective: Subjective: 83 year old female with below past medical history hospitalized for sepsis, urinary tract infection, dehydration, admitted to TCU with debility, here for rehabilitation, strengthening, prior to discharge home with . Objective: Allergies adhesive tape Allergy (Verified 06/10/23 17:02) Hives/Rash ciprofloxacin [From Cipro] Allergy (Verified 06/10/23 17:02) Photosensitivity & dermatitis pioglitazone [From Actos] Allergy (Verified 06/10/23 17:02) Unknown codeine Adverse Reaction (Verified 06/10/23 17:02) Upset Stomach ibandronate sodium [From Boniva] Adverse Reaction (Verified 06/10/23 17:02) GI upset/esophageal burning ibuprofen Adverse Reaction (Verified 06/10/23 17:02) GI upset Iodinated Contrast Media [CONTRASTS] Adverse Reaction (Verified 06/10/23 17:02) Vomiting iodine Adverse Reaction (Verified 06/10/23 17:02) Vomiting lansoprazole Adverse Reaction (Verified 06/10/23 17:02) Diarrhea metformin Adverse Reaction (Verified 06/10/23 17:02) Diarrhea miconazole [From Neosporin AF] Adverse Reaction (Verified 06/10/23 17:02) Rash/Blisters nabumetone [From Relafen] Adverse Reaction (Verified 06/10/23 17:02) GI upset pantoprazole [From Protonix] Adverse Reaction (Verified 06/10/23 17:02) Diarrhea sucralfate [From Carafate] Adverse Reaction (Verified 06/10/23 17:02) feels poorly Current Medications Generic Name Dose Route Start Last Admin Trade Name Freq PRN Reason Stop Dose Admin Acetaminophen 1,000 mg 06/14/23 17:34 06/19/23 08:38 Acetaminophen 500 Mg Tablet PO 1,000 mg Q6H PRN PRN Administration Pain Score 1-5 Albuterol Sulfate 2 puff 06/13/23 14:54 Albuterol Ih (6.7 Gm) 1 Puff Inhaler INHALATION Q6H PRN shortness of breath or wheezing Aspirin 81 mg 06/14/23 08:00 06/19/23 08:23 Aspirin 81 Mg Tab.Chew PO 81 mg DAILYCM [facility] Administration Atorvastatin Calcium 10 mg 06/13/23 22:00 06/18/23 22:02 Atorvastatin Calcium 10 Mg Tablet PO 10 mg QHS [facility] Administration Calamine/Phenol 1 applic 06/13/23 22:00 06/18/23 22:01 Menthol/Lanolin/Calamine/Znox 113 Gm Tube TOPICAL 1 applic BID [facility] Administration Protocol Cholecalciferol 25 mcg 06/14/23 10:00 06/19/23 08:28 Cholecalciferol (Vit D3) 25 Mcg Tablet (1,000 Units) PO 25 mcg DAILY [facility] Administration Duloxetine HCl 30 mg 06/14/23 10:00 06/19/23 08:24 Duloxetine Hcl 30 Mg Capsule PO 30 mg QAM [facility] Administration Duloxetine HCl 60 mg 06/13/23 22:00 06/18/23 22:03 Duloxetine Hcl 60 Mg Capsule PO 60 mg QHS [facility] Administration Empagliflozin 25 mg 06/14/23 10:00 06/19/23 08:25 Empagliflozin 25 Mg Tablet PO 25 mg DAILY [facility] Administration Enoxaparin Sodium 40 mg 06/14/23 06:00 06/19/23 05:03 Enoxaparin 40 Mg/0.4 Ml Syringe SC 40 mg 0600 [facility] Administration Furosemide 20 mg 06/14/23 10:00 06/19/23 08:25 Furosemide 20 Mg Tablet PO 20 mg DAILY [facility] Administration Protocol Gabapentin 100 mg 06/13/23 22:00 06/19/23 08:25 Gabapentin 100 Mg Capsule PO 100 mg BID [facility] Administration Insulin Glargine 20 unit 06/13/23 22:00 06/18/23 21:55 Insulin Glargine-Yfgn 100 Unit/Ml Pen SC Not Given QHS [facility] Insulin Human Lispro 20 unit 06/13/23 16:45 06/19/23 08:22 Insulin Lispro 100 Unit/Ml Insuln.Pen SC 20 u TIDAC [facility] Administration Lorazepam 1 mg 06/14/23 10:00 06/19/23 08:23 Lorazepam 1 Mg Tablet PO 1 mg DAILY [facility] Administration Magnesium Citrate 300 ml 06/13/23 15:54 Magnesium Citrate 300 Ml PO DAILY PRN Constipation Melatonin 10 mg 06/14/23 22:00 06/18/23 22:02 Melatonin 10 Mg Tablet PO 10 mg QHS [facility] Administration Metoprolol Succinate 200 mg 06/14/23 10:00 06/19/23 08:28 Metoprolol(Xl)Succ 200 Mg Tablet PO 200 mg DAILY [facility] Administration Protocol Nutritional Formula (Lactose Free) 120 ml 06/15/23 22:00 06/18/23 22:01 Glucerna Shake 120 Ml Liquid PO 120 ml BID [facility] Administration Oxycodone HCl 5 mg 06/14/23 17:33 06/18/23 20:26 Oxycodone 5 Mg Tablet PO 5 mg Q4H PRN PRN Administration Pain Score 6-10 Pantoprazole Sodium 40 mg 06/14/23 10:00 06/19/23 08:26 Pantoprazole Sodium 40 Mg Tablet PO 40 mg DAILY [facility] Administration Pyridoxine HCl 250 mg 06/14/23 10:00 06/19/23 08:27 Pyridoxine Hcl 100 Mg Tablet PO 250 mg DAILY [facility] Administration Senna/Docusate Sodium 1 tablet 06/13/23 22:00 06/19/23 08:26 Senna/Docusate Sodium 1 Tablet PO 1 tablet BID [facility] Administration Tolterodine Tartrate 4 mg 06/14/23 10:00 06/19/23 08:25 Tolterodine Tartrate 4 Mg Cap.Sa PO 4 mg DAILY [facility] Administration Tuberculin PPD 0.1 ml 06/21/23 10:00 Tuberculin,Purif.Prot.Deriv. 50 Tu/Ml Vial ID 06/21/23 10:01 X1 ONE Problem List (Updated 06/15/23 @ 00:09 by Background Becki) History of stroke (Acute) Recurrent UTI (Acute) History of lung cancer (Acute) Depression (Acute) Hyperlipidemia (Acute) Type 2 diabetes mellitus with hyperglycemia (Acute) GERD (gastroesophageal reflux disease) (Acute) Hypertension (Chronic) Dehydration (Acute) Debility (Acute) Anxiety (Chronic) Vital Signs Temp Pulse Resp BP Pulse Ox O2 Del Method 96.2 F L 84 16 141/71 H 96 Room Air 06/18/23 14:02 06/19/23 08:28 06/18/23 20:32 06/19/23 08:28 06/18/23 14:02 06/18/23 20:32 Oxygen Delivery Method Room Air Weight: 66.361 kg Body Mass Index (BMI) 26.9 Sodium 138 mmol/L (136-145) 06/14/23 05:48 Potassium 3.6 mmol/L (3.5-5.1) 06/14/23 05:48 Chloride 104 mmol/L (98-107) 06/14/23 05:48 Carbon Dioxide 27.0 mmol/L (21.0-32.0) 06/14/23 05:48 Anion Gap 7 (5-15) 06/14/23 05:48 BUN 16 mg/dL (7-18) 06/14/23 05:48 Creatinine 0.68 mg/dL (0.55-1.02) 06/14/23 05:48 Est GFR (MDRD) Af Amer 107 mL/min (>60) 06/14/23 05:48 Est GFR (MDRD) Non-Af 89 mL/min (>60) 06/14/23 05:48 BUN/Creatinine Ratio 23.6 RATIO (10-20) H 06/14/23 05:48 Glucose 258 mg/dL (74-106) H 06/14/23 05:48 Assessment/Plan: 1. Pain: Tylenol 1000 mg PO Q6H Pain (1-10), Oxycodone 5 mg Q4H Gabapentin 100 mg PO BID. Tylenol and Oxycodone have not been given during this admission. Continue to monitor pain levels, PRN medication usage, LFTs (AST/ALT = 07/01 U/L on 06/10/23), dizziness, drowsiness, seizures, respiratory depression, lower extremity edema and constipation. 2. Bowel: Senna/Colace 1 tablet bid, Magnesium Citrate 300 ml daily PRN constipation. Patient has not received any PRN magnesium citrate so far this admission. Continue to monitor for constipation, diarrhea, and PRN medication usage. The patient's last bowel movement was 06/15/23. Please consider administering PRN medications as the patient has not had a bowel movement in 4 days. 3. Urinary Tract Infection- Cefdinir 300 mg PO BID thru 06/18/23. Please continue to monitor for resolution of urinary symptoms, fevers (recent temps = 96.2-98.2 F), WBC count (WBC = 6.7 K/mm3 on 06/14/23) and for diarrhea during admission. 4. Diabetes Mellitus Type II- Jardiance 25 mg PO Daily, Glargine 20 units SQ QHS, Lispro 20 units SQ TID. Please continue to monitor blood sugars (recent BG range = 104-206 mg/dL), for s/s of hyper/hypoglycemia, hemoglobin A1C (A1C = 7.4% on 03/05/23), for UTIs, renal function (serum creatinine = 0.68 mg/dL with creatinine clearance ~ 34.9 mL/min on 06/14/23), and for dehydration. As the patient is 83 years old with an A1C of 7.4% and a history of UTIs, please consider stopping Jardiance. 5. Overactive Bladder- Tolterodine Tartrate 4 mg PO Daily. Monitor for constipation, headache, blurred vision, and drowsiness. 6. GERD- Pantoprazole 40 mg PO Daily. Monitor for diarrhea, abdominal pain, and increased triglycerides. 7. Hyperlipidemia- Atorvastatin 10 mg QHS. Monitor for muscle pain, LFTs (AST/ALT = 11/19 U/L on 06/10/23), and lipid levels (cholesterol = 170 mg/dL on 01/02/20 with LDL = 86 mg/dL on the same date). Please consider ordering lipid levels as the patient does not have recent lipid levels with in 1 year. 8. Hypertension- Metoprolol succinate 200 mg Daily. Monitor for shortness of breath, dizziness, blood pressure, and heart rate. Most Recent blood pressure 141/71. Most recent heart rate 84 BPM. 9. Stroke Prophylaxis- Aspirin 81 mg PO Daily. Monitor for signs of bleeding or bruising, as well as hemoglobin levels (Hgb = 12.5 g/dL on 06/14/23). 10. DVT Prophylaxis- Lovenox 40 mg SC Daily. Monitor for signs of bleeding, bruising and hemoglobin levels (Hgb = 12.5 g/dL on 06/14/23), as well as renal function (serum creatinine = 0.68 mg/dL with creatinine clearance ~ 34.9 mL/min on 06/14/23). 11. Leg edema- Furosemide 20 mg PO Daily. Monitor sodium (Na = 138 mmol/L on 06/14/23), potassium (K = 3.6 mmol/L on 06/14/23), calcium (Ca = 8.5 mg/dL on 06/14/23), magnesium levels (Mg = 1.9 mg/dL on 06/13/23), and leg edema as well as renal function (serum creatinine = 0.68 mg/dL with creatinine clearance ~ 34.9 mL/min on 06/14/23). 12. Vitamin B-6 deficiency- Pyridoxine 250 mg PO Daily. Monitor for signs of vitamin B-6 deficiency. 13. Vitamin D deficiency- Cholecalciferol 25 mcg PO Daily. Monitor for signs of vitamin D deficiency. 14. Shortness of Breath- Albuterol MDI 2 puffs Q6H as needed for shortness of breath. The patient has received 1 dose of albuterol so far this admission. Monitor for restlessness and tremor. 15. Skin irritation/Tinea Corporis- Nystatin powder topical BID, Clotrimazole topical BID, Calmoseptine topical BID. Monitor for hypersensitivity reactions and possible irritation of skin, as well as for skin irritation and resolution of tinea corporis. 16. Insomnia- Melatonin 10 mg QHS. Monitor for drowsiness and insomnia. 17. General nutrition: glucerna 120 mL oral BID. Please continue to monitor nutritional status. Assessment/Plan for indications treated with psychotropic medications: 1. Depression- Duloxetine 30mg PO QAM, 60mg PO QHS. 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 2. Anxiety- Lorazepam 1 mg PO Daily. See provider note for Stable chronic intermediate use, GDR not recommended. Please continue to monitor for anxiety, sedation, dizziness/drowsiness, and for syncope/ataxia/falls, and for delirium. Medical chart and medication regimen reviewed. The following medication irregularities or issues were identified: 1. Diabetes Mellitus Type II- Jardiance 25 mg PO Daily, Glargine 20 units SQ QHS, Lispro 20 units SQ TID. As the patient is 83 years old with an A1C of 7.4% and a history of UTIs, please consider stopping Jardiance. 2. Hyperlipidemia- Atorvastatin 10 mg QHS. Please consider ordering lipid levels as the patient does not have recent lipid levels within 1 year. Date Date of Note:: 06/19/23 Documented by User: Dr. Denzel Forbes MD 06/19/23 12:06 TCU RX Drug Regimen Review Provider Comments Provider responsibility Provider Comments to Recommendations by Pharmacy: Agree
[2023-06-19 10:19] VITALS: BMI 26.2
[2023-06-19] MEDS: Glucerna Shake 120 ML LIQUID PO ×2 (10:52→21:55)
[2023-06-19] MEDS: Menthol/Lanolin/Calamine/Znox 113 GM Tube 1 APPLIC TOPICAL ×2 (11:10→21:53)
[2023-06-19 11:27] LABS: Bedside Glucose 244 mg/dL (74-106)
--- NOTE | 2023-06-19 11:28 | CASEMGMT ---
Social Work BIMS () and PHQ-2 () completed for MDS assessment. Harmony Bhakta, CLERICAL AIDE NEUROPSYCHIATRIC AIDE
[2023-06-19 12:49] VITALS: BP 122/68; PULSE 82; RESP 17; TEMP 36.1; O2SAT 99
[2023-06-19 17:18] LABS: Bedside Glucose 107 mg/dL (74-106)
--- NOTE | 2023-06-19 17:23 | NURSING ---
Small amount of blood noted in brief. Patient very excoriated with open areas to groin and perineum. Patient has allergy to topical Miconozole. Dr. Reeder made aware and ordered PO fluconozole.
[2023-06-19] MEDS: FLUCONAZOLE 150 MG TABLET PO (17:50)
[2023-06-19 21:00] VITALS: PULSE 74; RESP 14; O2SAT 95
[2023-06-19 21:22] LABS: Bedside Glucose 113 mg/dL (74-106)
[2023-06-19] MEDS: oxyCODONE 5 MG Tablet PO (21:53)
[2023-06-19] MEDS: MELATONIN 10 MG TABLET PO (21:54)
[2023-06-19] MEDS: DULoxetine Hcl 60 MG Capsule PO (21:55)
[2023-06-19] MEDS: Atorvastatin Calcium 10 MG Tablet PO (21:55)
[2023-06-19] MEDS: Insulin Glargine-YFGN 100 UNIT/ML Pen 20 UNIT SC (21:55)
[2023-06-20] MEDS: oxyCODONE 5 MG Tablet PO (04:54)
[2023-06-20] MEDS: Enoxaparin 40 MG/0.4 ML Syringe SC (04:55)
[2023-06-20 05:02] VITALS: PULSE 79; RESP 16; O2SAT 95
[2023-06-20 06:35] LABS: Bedside Glucose 258 mg/dL (74-106)
[2023-06-20 08:04] VITALS: BP 138/82; PULSE 84
[2023-06-20] MEDS: Pyridoxine HCl 100 MG Tablet 250 MG PO (08:04)
[2023-06-20] MEDS: Aspirin 81 MG TAB.CHEW PO (08:04)
[2023-06-20] MEDS: Pantoprazole Sodium 40 MG Tablet PO (08:04)
[2023-06-20] MEDS: Cholecalciferol (VIT D3) 25 MCG TABLET (1,000 UNITS) PO (08:04)
[2023-06-20] MEDS: Metoprolol(XL)Succ 200 MG Tablet PO (08:04)
[2023-06-20] MEDS: Empagliflozin 25 MG Tablet PO (08:05)
[2023-06-20] MEDS: Tolterodine Tartrate 4 MG CAP.SA PO (08:05)
[2023-06-20] MEDS: Glucerna Shake 120 ML LIQUID PO ×2 (08:05→21:05)
[2023-06-20] MEDS: Furosemide 20 MG Tablet PO (08:05)
[2023-06-20] MEDS: DULoxetine Hcl 30 MG Capsule PO (08:05)
[2023-06-20] MEDS: Insulin Lispro 100 UNIT/ML INSULN.PEN 20 UNIT SC ×2 (08:06→12:36)
[2023-06-20] MEDS: Senna/Docusate Sodium 1 Tablet PO ×2 (08:06→21:06)
[2023-06-20] MEDS: Menthol/Lanolin/Calamine/Znox 113 GM Tube 1 APPLIC TOPICAL ×2 (08:07→21:12)
--- NOTE | 2023-06-20 08:49 | NURSING ---
Highway Painter Note; MDS Complete
--- NOTE | 2023-06-20 09:42 | CASEMGMT ---
Addendum entered by Harmony Bhakta 06/22/23 09:51: SW followed up with pt and about HHC agency. Pt choosing [facility]. Phoned referral to [facility] for PT/OT/SN. Original Note: Social Work IDT met with patient and for care plan meeting. Discussed patient's progress in PT/OT/ST/SN. Educated to Medicare benefit and copay coverage. Inquired about any concerns with pt discharging home with . Pt/ denied. Offered car transfer and both agreed. Scheduled for today's therapy session. Offered to set DC date for 06/26. Pt/ agreeable. Pt used HHC prior but could not recall HHC agency. SW provided printed list of skilled HHC agencies with quality and resource data via [employer]. Pt has no DME needs. SW will continue to follow. Plan: DC home with 06/26, [facility] [place] PT/OT/SN. SAWYER CavazosW
[2023-06-20] MEDS: Gabapentin 300 MG Capsule PO ×2 (10:05→21:08)
[2023-06-20] MEDS: LORazepam 1 MG Tablet PO (10:05)
[2023-06-20 11:42] LABS: Bedside Glucose 162 mg/dL (74-106)
[2023-06-20 14:08] VITALS: BP 123/54; PULSE 80; RESP 16; TEMP 36.7; O2SAT 94
[2023-06-20 16:24] LABS: Bedside Glucose 95 mg/dL (74-106)
--- NOTE | 2023-06-20 18:34 | NURSING ---
Pt refused Mag Citrate and Prune Juice this Am. Pt's last Bowel Movement was 06/16/23. Pt educated and she stated I have a busy day. Pt offered Mag Citrate this PM and pt refused. She stated I will drink the Prune Juice.
[2023-06-20] MEDS: DULoxetine Hcl 60 MG Capsule PO (21:06)
[2023-06-20] MEDS: Atorvastatin Calcium 10 MG Tablet PO (21:06)
[2023-06-20] MEDS: MELATONIN 10 MG TABLET PO (21:06)
[2023-06-20] MEDS: Insulin Glargine-YFGN 100 UNIT/ML Pen 20 UNIT SC (21:06)
--- NOTE | 2023-06-20 21:19 | PCM.DC.SUM ---
Providers Date of Admission: 06/13/23 Primary Care Physician: Dr. Emily Yun MD Reason For Visit: SEPSIS SECONDARY TO UTI Diagnosis Discharge Diagnosis (1) Debility: Status: Acute Code(s): R53.81 - Other malaise (2) Sepsis: Status: Resolved Code(s): A41.9 - Sepsis, unspecified organism Qualifiers: Sepsis type: sepsis due to unspecified organism Sepsis acute organ dysfunction status: with acute organ dysfunction Severe sepsis acute organ dysfunction type: unspecified Severe sepsis shock status: without septic shock Qualified Code(s): A41.9 - Sepsis, unspecified organism; R65.20 - Severe sepsis without septic shock (3) UTI (urinary tract infection): Status: Resolved Code(s): N39.0 - Urinary tract infection, site not specified Qualifiers: Urinary tract infection type: acute cystitis Hematuria presence: without hematuria Qualified Code(s): N30.00 - Acute cystitis without hematuria (4) Dehydration: Status: Acute Code(s): E86.0 - Dehydration (5) Hypertension: Status: Chronic Code(s): I10 - Essential (primary) hypertension (6) Anxiety: Status: Chronic Code(s): F41.9 - Anxiety disorder, unspecified (7) GERD (gastroesophageal reflux disease): Status: Acute Code(s): K21.9 - Gastro-esophageal reflux disease without esophagitis (8) Type 2 diabetes mellitus with hyperglycemia: Status: Acute Code(s): E11.65 - Type 2 diabetes mellitus with hyperglycemia (9) Hyperlipidemia: Status: Acute Code(s): E78.5 - Hyperlipidemia, unspecified (10) Depression: Status: Acute Code(s): F32.9 - Major depressive disorder, single episode, unspecified (11) History of lung cancer: Status: Acute Code(s): Z85.118 - Personal history of other malignant neoplasm of bronchus and lung (12) Recurrent UTI: Status: Acute Code(s): N39.0 - Urinary tract infection, site not specified (13) History of stroke: Status: Acute Code(s): Z86.73 - Personal history of transient ischemic attack (TIA), and cerebral infarction without residual deficits Plan 83 year old female with below past medical history hospitalized for sepsis, urinary tract infection, dehydration, admitted to TCU with debility, here for rehabilitation, strengthening, prior to discharge home with . Debility - PT/OT. Pain - Tylenol 1000mg q6 prn pain (1-10). Bowel - senna/colace 1 tablet bid, Magnesium citrate 300ml daily prn. Adult immunization - Administer pneumonia vaccine, covid19 vaccine, flu vaccine as appropriate. DVT prophylaxis - Lovenox 40mg sc daily. Shortness of breath - Albuterol MDI 2 puffs q6h prn History of stroke - Aspirin 81mg daily. Hyperlipidemia - Atorvastatin 10mg qhs. Urinary tract infection - Cefdinir 300mg bid thru 06/18/2023. Vitamin D deficiency - D3 25mcg daily,. 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 Diabetes Mellitus II - Jardiance 25mg daily, Glargine 20 units qhs, Lispro 20 units tid. Edema - Furosemide 20mg daily. Left lower extremity pain - Order CT left tibia/fibula no contrast to rule out stress fracture, Gabapentin 100mg bid. 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 Skin irritation - Calmoseptine topical bid. Hypertension - Metoprolol succinate 200mg daily. Tinea Corporis - Nystatin powder topical bid. GERD - Pantoprazole 40mg daily. Vitamin B-6 deficiency - B-6 250mg daily. Overactive bladder - Tolterodine 4mg daily. Medications at Discharge Home Medications cholecalciferol (vitamin D3) 25 mcg (1,000 unit) tablet 1,000 unit PO DAILY supplement 03/13/17 metoprolol succinate 200 mg tablet,extended release 24 hr 200 mg PO DAILY heart 03/13/17 lorazepam 1 mg tablet 1 mg PO DAILY anxiety 08/28/18 esomeprazole magnesium 40 mg capsule,delayed release 40 mg PO DAILY gerd 01/01/20 aspirin 81 mg chewable tablet 81 mg PO DAILY@0800 heart ##30 01/03/20 fesoterodine 4 mg tablet,extended release 24 hr (Toviaz) 8 mg PO DAILY bladder 10/10/21 pen needle, diabetic 32 gauge x 1/4 (BD Ultra-Fine Micro Pen Needle) #450 ea 12/14/21 blood sugar diagnostic (Playviewsuch Verio test strips) #100 ea 12/25/22 pyridoxine (vitamin B6) 250 mg tablet 250 mg PO DAILY vitamin 02/06/23 insulin glargine 100 unit/mL (3 mL) subcutaneous pen (Lantus Solostar U-100 Insulin) 20 unit subcut QHS dm 03/05/23 albuterol sulfate 90 mcg/actuation aerosol inhaler 2 puff inhalation Q6H PRN shortness of breath or wheezing #6.7 grams 03/07/23 empagliflozin 25 mg tablet (Jardiance) 25 mg PO DAILY diabetes #30 tabs 05/23/23 duloxetine 30 mg capsule,delayed release 30 mg PO QAM mood #30 caps 06/07/23 duloxetine 60 mg capsule,delayed release 60 mg PO QHS mood #30 caps 06/07/23 furosemide 20 mg tablet (Lasix) 20 mg PO DAILY bp 06/11/23 omeprazole 40 mg capsule,delayed release 40 mg PO DAILY gerd 06/11/23 rosuvastatin 10 mg tablet 5 mg PO QHS hld 06/11/23 acetaminophen 500 mg tablet 1,000 mg (2 x 500 mg) PO Q6H PRN PRN Pain Score 1-5 #0 tabs 06/20/23 gabapentin 300 mg capsule 300 mg PO BID 30 days #60 caps 06/20/23 insulin lispro 100 unit/mL subcutaneous pen (Humalog KwikPen (U-100) Insulin) 20 unit (0.2 mL) subcut TIDAC #0 mL 06/20/23 oxycodone 5 mg tablet 5 mg PO Q4H PRN PRN Pain Score 6-10 7 days #42 tabs 06/20/23 sennosides 8.6 mg-docusate sodium 50 mg tablet (Stool Softener-Stimulant Laxative) 1 tab PO BID 30 days #60 tabs 06/20/23 Hospital Course Operations None Procedures None Summary of Care Provided Minutes Spent on Discharge: 35 Hospital Course: 83 year old female with below past medical history hospitalized for sepsis, urinary tract infection, dehydration, admitted to TCU with debility, here for rehabilitation, strengthening, prior to discharge home with . 06/13/2023 CT left lower extremity negative. 06/15/2023 MRI brain negative. Discharge home with 06/26/2023, Home Health Care PT/OT/SN. Physical Exam Const alert General Appearance: cooperative HEENT normocephalic Eyes PERRL and EOMs intact bilaterally Neck supple, no JVD and no carotid bruits Resp normal respiratory effort, normal air movement and clear to auscultation bilaterally Cardio regular rate and regular rhythm GI normal to inspection, nondistended, normoactive bowel sounds, non-tender and non-distended Extremity normal capillary refill General Extremity: Negative for edema Skin no rashes or lesions noted General Skin Exam: no breakdown Psych affect normal Appearance: appropriate Weight / BMI Weight Weight: 64.949 kg Body Mass Index (BMI) 26.2 ABG / Lab / Microbiology Data 06/14/23 05:48 06/14/23 05:48 Laboratory: Laboratory Results - last 24 hr 06/19/23 21:05: POC Glucose 113 H 06/20/23 06:17: POC Glucose 258 H 06/20/23 11:18: POC Glucose 162 H 06/20/23 16:06: POC Glucose 95 D/C Instructions Discharge Diet: No restrictions Discharge Activity: Return to Normal Activity, May Shower and Use Walker Weight Bearing Status: Weight bearing as tolerated Call your doctor if you observe: Fever of 101 or Higher, Inability to urinate, Inability to have a bowel movement, Shortness of breath, Dizziness, Fainting spells, Swelling in the ankles, Chest pain and Uncontrolled pain Additional Instructions: Discharge home with 06/26/2023, Home Health Care PT/OT/SN. Meaningful Use Info Meaningful Use Diagnoses (Choose all that apply): None applicable Discharge Plan Admission Admit Date/Time: 06/13/23 13:44 Primary Reason for Your Visit: Debility. Attending Provider: Denzel Forbes Chi Primary Care Provider: Emily Yun Instructions Additional Instructions / Restrictions: Discharge home with 06/26/2023, Home Health Care PT/OT/SN. Discharge Orders/Prescriptions Prescriptions: New sennosides-docusate sodium [Stool Softener-Stimulant Laxat] 8.6-50 mg Tablet 1 tab PO BID 30 Days Qty: 60 0RF acetaminophen 500 mg Tablet 1,000 mg PO Q6H PRN PRN (Reason: Pain Score 1-5) Qty: 0 0RF gabapentin 300 mg Capsule 300 mg PO BID 30 Days Qty: 60 0RF oxycodone 5 mg Tablet 5 mg PO Q4H PRN PRN (Reason: Pain Score 6-10) 7 Days Qty: 42 0RF insulin lispro [Humalog KwikPen Insulin] 100 unit/mL Insulin Pen 20 unit subcut TIDAC Qty: 0 0RF Continued lorazepam 1 mg tablet 1 mg PO DAILY fesoterodine [Toviaz] 4 mg tablet extended release 24 hr 8 mg PO DAILY albuterol sulfate 90 mcg/actuation HFA aerosol inhaler 2 puff inhalation Q6H PRN (Reason: shortness of breath or wheezing) Qty: 6.7 3RF pyridoxine (vitamin B6) 250 mg tablet 250 mg PO DAILY insulin glargine [Lantus Solostar U-100 Insulin] 100 unit/mL (3 mL) insulin pen 20 unit SC QHS duloxetine 60 mg capsule,delayed release(DR/EC) 60 mg PO QHS Qty: 30 5RF duloxetine 30 mg capsule,delayed release(DR/EC) 30 mg PO QAM Qty: 30 5RF metoprolol succinate 200 MG tablet extended release 24 hr 200 mg PO DAILY Patient Comments: BLOOD PRESSURE/HEART cholecalciferol (vitamin D3) 1,000 UNIT tablet 1,000 unit PO DAILY Patient Comments: SUPPLEMENT esomeprazole magnesium 40 MG capsule,delayed release(DR/EC) 40 mg PO DAILY aspirin 81 MG tablet,chewable 81 mg PO DAILY@0800 Qty: 30 0RF rosuvastatin 10 mg tablet 5 mg PO QHS furosemide [Lasix] 20 mg tablet 20 mg PO DAILY omeprazole 40 mg capsule,delayed release(DR/EC) 40 mg PO DAILY Jardiance 25 mg tablet 25 mg PO DAILY Qty: 30 6RF Discontinued cranberry 500 mg capsule 500 mg PO BID Rx Instructions: administer with meals cephalexin 250 mg capsule 250 mg PO QHS insulin aspart U-100 [Novolog FlexPen U-100 Insulin] 100 unit/mL (3 mL) insulin pen 34 unit SC BREAKFAST insulin aspart U-100 [Novolog FlexPen U-100 Insulin] 100 unit/mL (3 mL) insulin pen 20 unit subcut TID cefdinir 300 mg capsule 300 mg PO BID Qty: 10 0RF gabapentin 100 mg capsule 100 mg PO BID Qty: 60 0RF No Action (DME) pen needle, diabetic [BD Ultra-Fine Micro Pen Needle] 32 gauge x 1/4 needle See Rx Instructions .ROUTE .MEDSUPPLY Qty: 450 1RF Rx Instructions: 4x/day (DME) OneTouch Verio test strips Strip See Rx Instructions .ROUTE .MEDSUPPLY Qty: 100 3RF Rx Instructions: daily Referrals / Follow Up: Emily Yun MD [Primary Care Provider] - Disposition Disposition (needs filled in before D/C Order can be placed): Home Health Service
[2023-06-20 21:26] LABS: Bedside Glucose 292 mg/dL (74-106)
[2023-06-21] MEDS: Enoxaparin 40 MG/0.4 ML Syringe SC (05:58)
[2023-06-21 06:01] LABS: Absolute Lymphocyte Count 1.92 X10^3/uL (0.83-4.51); Absolute Neutrophil Count 8.9 X10^3/uL (2.0-7.7); Basophil# 0.08 X10^3/uL; Basophil% 0.6 % (0-1); Eosinophil# 0.47 X10^3/uL; Eosinophils% 3.7 % (0-5); Hematocrit 43.5 % (37-47); Hemoglobin 13.9 g/dL (12.0-15.0); Lymphocyte # 1.92 X10^3/ul (0.83-4.51); Lymphocyte % 15.2 % (19-41); Mean Corpuscular Hgb 30.8 pg (27.0-32.0); Mean Corpuscular Volume 96.2 fL (81-99); Monocyte# 1.17 X10^3/uL; Monocyte% 9.3 % (0-10); NRBC Flagged by Analyzer 0 % (0-5); Neutrophil # 8.93 X10^3/uL (2.7-7.7); Neutrophil % 70.9 % (47-70); Platelet Count 304 K/mm3 (150-450); RBC Distribution Width CV 13.6 % (11.6-14.6); RBC Distribution Width SD 48.2 fl (35.1-43.9); Red Blood Count 4.52 M/mm3 (4.2-5.4); White Blood Count 12.6 K/mm3 (4.4-11.0)
[2023-06-21 06:35] LABS: Bedside Glucose 245 mg/dL (74-106)
[2023-06-21 06:39] LABS: Anion Gap 8 (5-15); BUN 23 mg/dL (7-18); BUN/Creat Ratio 21.7 RATIO (10-20); Calcium,Total 9.4 mg/dL (8.5-10.1); Chloride 99 mmol/L (98-107); Creatinine, Serum 1.06 mg/dL (0.55-1.02); EST Glomerular Filtration Rate 53 mL/min (>60); Est Glom Filt Rate - Afr Amer 64 mL/min (>60); Estimated Creatinine Clearance 32.92 ml/min; Glucose 215 mg/dL (74-106); Potassium 4.5 mmol/L (3.5-5.1); Sodium Level 137 mmol/L (136-145)
[2023-06-21 06:42] VITALS: RESP 16; O2SAT 96
[2023-06-21 07:53] VITALS: BP 135/71; PULSE 78; RESP 16; TEMP 35.7; O2SAT 93
[2023-06-21] MEDS: Menthol/Lanolin/Calamine/Znox 113 GM Tube 1 APPLIC TOPICAL ×2 (07:59→21:39)
[2023-06-21] MEDS: Insulin Lispro 100 UNIT/ML INSULN.PEN 20 UNIT SC ×3 (08:00→18:06)
[2023-06-21] MEDS: Aspirin 81 MG TAB.CHEW PO (08:01)
[2023-06-21] MEDS: DULoxetine Hcl 30 MG Capsule PO (08:01)
[2023-06-21] MEDS: Tolterodine Tartrate 4 MG CAP.SA PO (08:01)
[2023-06-21 08:02] VITALS: BP 135/71; PULSE 78
[2023-06-21] MEDS: Pantoprazole Sodium 40 MG Tablet PO (08:02)
[2023-06-21] MEDS: Metoprolol(XL)Succ 200 MG Tablet PO (08:02)
[2023-06-21] MEDS: Empagliflozin 25 MG Tablet PO (08:02)
[2023-06-21] MEDS: Furosemide 20 MG Tablet PO (08:02)
[2023-06-21] MEDS: Senna/Docusate Sodium 1 Tablet PO ×2 (08:02→21:33)
[2023-06-21] MEDS: Cholecalciferol (VIT D3) 25 MCG TABLET (1,000 UNITS) PO (08:03)
[2023-06-21] MEDS: Pyridoxine HCl 100 MG Tablet 250 MG PO (08:03)
[2023-06-21] MEDS: Glucerna Shake 120 ML LIQUID PO ×2 (10:23→21:33)
[2023-06-21] MEDS: Gabapentin 300 MG Capsule PO ×2 (10:23→21:35)
[2023-06-21] MEDS: LORazepam 1 MG Tablet PO (10:23)
[2023-06-21] MEDS: Tuberculin,Purif.prot.deriv. 50 TU/ML Vial 0.1 ML ID (10:24)
[2023-06-21 11:57] LABS: Bedside Glucose 226 mg/dL (74-106)
[2023-06-21 17:16] LABS: Bedside Glucose 124 mg/dL (74-106)
[2023-06-21] MEDS: Insulin Glargine-YFGN 100 UNIT/ML Pen 20 UNIT SC (21:32)
[2023-06-21] MEDS: Atorvastatin Calcium 10 MG Tablet PO (21:33)
[2023-06-21] MEDS: MELATONIN 10 MG TABLET PO (21:33)
[2023-06-21] MEDS: DULoxetine Hcl 60 MG Capsule PO (21:33)
[2023-06-21 21:51] LABS: Bedside Glucose 151 mg/dL (74-106)
[2023-06-22] MEDS: oxyCODONE 5 MG Tablet PO ×3 (00:16→21:50)
[2023-06-22] MEDS: Enoxaparin 40 MG/0.4 ML Syringe SC (06:20)
[2023-06-22 06:41] LABS: Bedside Glucose 208 mg/dL (74-106)
[2023-06-22] MEDS: Aspirin 81 MG TAB.CHEW PO (08:24)
[2023-06-22] MEDS: Insulin Lispro 100 UNIT/ML INSULN.PEN 20 UNIT SC ×3 (08:26→16:57)
[2023-06-22] MEDS: Pantoprazole Sodium 40 MG Tablet PO (10:21)
[2023-06-22] MEDS: Cholecalciferol (VIT D3) 25 MCG TABLET (1,000 UNITS) PO (10:22)
[2023-06-22] MEDS: DULoxetine Hcl 30 MG Capsule PO (10:22)
[2023-06-22] MEDS: Furosemide 20 MG Tablet PO (10:22)
[2023-06-22 10:23] VITALS: PULSE 76
[2023-06-22] MEDS: Empagliflozin 25 MG Tablet PO (10:23)
[2023-06-22] MEDS: Tolterodine Tartrate 4 MG CAP.SA PO (10:23)
[2023-06-22] MEDS: Metoprolol(XL)Succ 200 MG Tablet PO (10:23)
[2023-06-22] MEDS: Pyridoxine HCl 100 MG Tablet 250 MG PO (10:24)
[2023-06-22] MEDS: Senna/Docusate Sodium 1 Tablet PO (10:24)
[2023-06-22] MEDS: Menthol/Lanolin/Calamine/Znox 113 GM Tube 1 APPLIC TOPICAL ×2 (10:24→21:51)
[2023-06-22] MEDS: LORazepam 1 MG Tablet PO (10:28)
[2023-06-22] MEDS: Gabapentin 300 MG Capsule PO ×2 (10:29→21:50)
[2023-06-22] MEDS: Glucerna Shake 120 ML LIQUID PO ×2 (10:31→21:50)
[2023-06-22 11:44] LABS: Bedside Glucose 264 mg/dL (74-106)
[2023-06-22 15:08] VITALS: BP 128/65; PULSE 85; RESP 18; TEMP 36.8; O2SAT 95
--- NOTE | 2023-06-22 16:18 | CASEMGMT ---
Social Work BIMS and PHQ-2 completed for MDS assessment. Harmony Bhakta, STEP FINISHER MANAGER OF REGULATORY AFFAIRS
[2023-06-22 16:51] LABS: Bedside Glucose 131 mg/dL (74-106)
[2023-06-22] MEDS: FLUCONAZOLE 150 MG TABLET PO (16:57)
[2023-06-22 21:21] LABS: Bedside Glucose 93 mg/dL (74-106)
[2023-06-22] MEDS: Atorvastatin Calcium 10 MG Tablet PO (21:52)
[2023-06-22] MEDS: DULoxetine Hcl 60 MG Capsule PO (21:52)
[2023-06-22] MEDS: MELATONIN 10 MG TABLET PO (21:52)
[2023-06-23] MEDS: oxyCODONE 5 MG Tablet PO ×2 (01:54→22:19)
[2023-06-23] MEDS: Enoxaparin 40 MG/0.4 ML Syringe SC (04:45)
[2023-06-23 06:48] LABS: Bedside Glucose 233 mg/dL (74-106)
[2023-06-23] MEDS: Insulin Lispro 100 UNIT/ML INSULN.PEN 20 UNIT SC ×2 (08:17→12:04)
[2023-06-23] MEDS: LORazepam 1 MG Tablet PO (08:18)
[2023-06-23] MEDS: Aspirin 81 MG TAB.CHEW PO (08:18)
[2023-06-23] MEDS: DULoxetine Hcl 30 MG Capsule PO (08:18)
[2023-06-23] MEDS: Tolterodine Tartrate 4 MG CAP.SA PO (08:19)
[2023-06-23] MEDS: Empagliflozin 25 MG Tablet PO (08:19)
[2023-06-23 08:20] VITALS: BP 140/77; PULSE 81
[2023-06-23] MEDS: Pantoprazole Sodium 40 MG Tablet PO (08:20)
[2023-06-23] MEDS: Furosemide 20 MG Tablet PO (08:20)
[2023-06-23] MEDS: Gabapentin 300 MG Capsule PO ×2 (08:20→22:19)
[2023-06-23] MEDS: Metoprolol(XL)Succ 200 MG Tablet PO (08:20)
[2023-06-23] MEDS: Pyridoxine HCl 100 MG Tablet 250 MG PO (08:21)
[2023-06-23] MEDS: Cholecalciferol (VIT D3) 25 MCG TABLET (1,000 UNITS) PO (08:21)
[2023-06-23] MEDS: Glucerna Shake 120 ML LIQUID PO ×2 (08:22→22:18)
[2023-06-23] MEDS: Menthol/Lanolin/Calamine/Znox 113 GM Tube 1 APPLIC TOPICAL (08:25)
[2023-06-23 11:18] LABS: Bedside Glucose 244 mg/dL (74-106)
[2023-06-23 14:32] VITALS: BP 119/68; PULSE 79; RESP 16; TEMP 36.1; O2SAT 95
[2023-06-23 16:41] LABS: Bedside Glucose 77 mg/dL (74-106)
[2023-06-23 21:34] LABS: Bedside Glucose 210 mg/dL (74-106)
[2023-06-23] MEDS: MELATONIN 10 MG TABLET PO (22:20)
[2023-06-23] MEDS: Insulin Glargine-YFGN 100 UNIT/ML Pen 20 UNIT SC (22:20)
[2023-06-23] MEDS: Atorvastatin Calcium 10 MG Tablet PO (22:20)
[2023-06-23] MEDS: DULoxetine Hcl 60 MG Capsule PO (22:20)
[2023-06-24] MEDS: Enoxaparin 40 MG/0.4 ML Syringe SC (05:47)
[2023-06-24 06:13] LABS: Bedside Glucose 201 mg/dL (74-106)
[2023-06-24] MEDS: Insulin Lispro 100 UNIT/ML INSULN.PEN 20 UNIT SC ×2 (09:07→11:46)
[2023-06-24 09:08] VITALS: PULSE 76
[2023-06-24] MEDS: Pyridoxine HCl 100 MG Tablet 250 MG PO (09:08)
[2023-06-24] MEDS: Aspirin 81 MG TAB.CHEW PO (09:08)
[2023-06-24] MEDS: Tolterodine Tartrate 4 MG CAP.SA PO (09:08)
[2023-06-24] MEDS: Cholecalciferol (VIT D3) 25 MCG TABLET (1,000 UNITS) PO (09:08)
[2023-06-24] MEDS: Metoprolol(XL)Succ 200 MG Tablet PO (09:08)
[2023-06-24] MEDS: Empagliflozin 25 MG Tablet PO (09:08)
[2023-06-24] MEDS: Furosemide 20 MG Tablet PO (09:08)
[2023-06-24] MEDS: Pantoprazole Sodium 40 MG Tablet PO (09:09)
[2023-06-24] MEDS: DULoxetine Hcl 30 MG Capsule PO (09:09)
[2023-06-24] MEDS: Gabapentin 300 MG Capsule PO ×2 (09:13→23:08)
[2023-06-24] MEDS: LORazepam 1 MG Tablet PO (09:13)
[2023-06-24] MEDS: Glucerna Shake 120 ML LIQUID PO ×2 (09:13→23:07)
[2023-06-24] MEDS: Menthol/Lanolin/Calamine/Znox 113 GM Tube 1 APPLIC TOPICAL (09:18)
[2023-06-24 11:18] LABS: Bedside Glucose 284 mg/dL (74-106)
[2023-06-24 14:38] VITALS: BP 122/61; PULSE 76; RESP 17; TEMP 35.8; O2SAT 94
[2023-06-24 16:38] LABS: Bedside Glucose 72 mg/dL (74-106)
[2023-06-24 17:20] LABS: Bedside Glucose 88 mg/dL (74-106)
[2023-06-24 21:45] LABS: Bedside Glucose 242 mg/dL (74-106)
[2023-06-24] MEDS: oxyCODONE 5 MG Tablet PO (23:06)
[2023-06-24] MEDS: DULoxetine Hcl 60 MG Capsule PO (23:06)
[2023-06-24] MEDS: Insulin Glargine-YFGN 100 UNIT/ML Pen 20 UNIT SC (23:07)
[2023-06-24] MEDS: Atorvastatin Calcium 10 MG Tablet PO (23:08)
[2023-06-24] MEDS: MELATONIN 10 MG TABLET PO (23:08)
[2023-06-25 06:45] LABS: Bedside Glucose 267 mg/dL (74-106)
[2023-06-25] MEDS: Enoxaparin 40 MG/0.4 ML Syringe SC (06:52)
[2023-06-25] MEDS: Insulin Lispro 100 UNIT/ML INSULN.PEN 20 UNIT SC ×2 (08:16→12:10)
[2023-06-25 08:17] VITALS: BP 132/60; PULSE 76
[2023-06-25] MEDS: Tolterodine Tartrate 4 MG CAP.SA PO (08:17)
[2023-06-25] MEDS: Empagliflozin 25 MG Tablet PO (08:17)
[2023-06-25] MEDS: Aspirin 81 MG TAB.CHEW PO (08:17)
[2023-06-25] MEDS: Furosemide 20 MG Tablet PO (08:17)
[2023-06-25] MEDS: Pyridoxine HCl 100 MG Tablet 250 MG PO (08:17)
[2023-06-25] MEDS: Metoprolol(XL)Succ 200 MG Tablet PO (08:17)
[2023-06-25] MEDS: DULoxetine Hcl 30 MG Capsule PO (08:17)
[2023-06-25] MEDS: Cholecalciferol (VIT D3) 25 MCG TABLET (1,000 UNITS) PO (08:17)
[2023-06-25] MEDS: Pantoprazole Sodium 40 MG Tablet PO (08:17)
[2023-06-25] MEDS: Glucerna Shake 120 ML LIQUID PO ×2 (08:20→21:03)
[2023-06-25] MEDS: oxyCODONE 5 MG Tablet PO (10:02)
[2023-06-25] MEDS: LORazepam 1 MG Tablet PO (10:21)
[2023-06-25] MEDS: Gabapentin 300 MG Capsule PO ×2 (10:21→21:03)
[2023-06-25] MEDS: Menthol/Lanolin/Calamine/Znox 113 GM Tube 1 APPLIC TOPICAL ×2 (10:22→21:10)
[2023-06-25 11:29] LABS: Bedside Glucose 268 mg/dL (74-106)
[2023-06-25 13:56] VITALS: BP 126/71; PULSE 75; RESP 16; TEMP 36.7; O2SAT 92
[2023-06-25 16:41] LABS: Bedside Glucose 84 mg/dL (74-106)
[2023-06-25] MEDS: FLUCONAZOLE 150 MG TABLET PO (17:09)
[2023-06-25] MEDS: Insulin Glargine-YFGN 100 UNIT/ML Pen 20 UNIT SC (21:04)
[2023-06-25] MEDS: DULoxetine Hcl 60 MG Capsule PO (21:04)
[2023-06-25] MEDS: MELATONIN 10 MG TABLET PO (21:04)
[2023-06-25] MEDS: Atorvastatin Calcium 10 MG Tablet PO (21:05)
[2023-06-25 21:22] LABS: Bedside Glucose 194 mg/dL (74-106)
[2023-06-26] MEDS: Enoxaparin 40 MG/0.4 ML Syringe SC (05:49)
[2023-06-26 06:34] VITALS: PULSE 74; RESP 16
[2023-06-26 06:50] LABS: Bedside Glucose 174 mg/dL (74-106)
[2023-06-26] MEDS: Glucerna Shake 120 ML LIQUID PO (08:13)
[2023-06-26] MEDS: Pyridoxine HCl 100 MG Tablet 250 MG PO (08:13)
[2023-06-26] MEDS: Tolterodine Tartrate 4 MG CAP.SA PO (08:14)
[2023-06-26] MEDS: Pantoprazole Sodium 40 MG Tablet PO (08:14)
[2023-06-26] MEDS: Furosemide 20 MG Tablet PO (08:14)
[2023-06-26] MEDS: DULoxetine Hcl 30 MG Capsule PO (08:14)
[2023-06-26] MEDS: Empagliflozin 25 MG Tablet PO (08:14)
[2023-06-26 08:15] VITALS: BP 130/82; PULSE 88
[2023-06-26] MEDS: Menthol/Lanolin/Calamine/Znox 113 GM Tube 1 APPLIC TOPICAL (08:15)
[2023-06-26] MEDS: Metoprolol(XL)Succ 200 MG Tablet PO (08:15)
[2023-06-26] MEDS: Aspirin 81 MG TAB.CHEW PO (08:15)
[2023-06-26] MEDS: Cholecalciferol (VIT D3) 25 MCG TABLET (1,000 UNITS) PO (08:15)
[2023-06-26] MEDS: Insulin Lispro 100 UNIT/ML INSULN.PEN 20 UNIT SC (08:18)
[2023-06-26] MEDS: oxyCODONE 5 MG Tablet PO (08:23)
[2023-06-26] MEDS: LORazepam 1 MG Tablet PO (10:26)
[2023-06-26] MEDS: Gabapentin 300 MG Capsule PO (10:27)
[2023-06-26 11:41] VITALS: BP 136/68; PULSE 86; RESP 18; TEMP 36.4; O2SAT 95
[2023-06-26 12:16] LABS: Bedside Glucose 254 mg/dL (74-106)
== END 2023-06-26 12:15 | disposition home health service (06) | DRG 690 ==
PROVIDERS: Admitting Provider Family Medicine Geriatric Medicine; PCP Internal Medicine; Visit Provider Family Medicine Geriatric Medicine
DX: N30.00 Acute cystitis without hematuria (principal); G81.94 Hemiplegia, unspecified affecting left nondominant side; E11.65 Type 2 diabetes mellitus with hyperglycemia; E11.9 Type 2 diabetes mellitus without complications; B35.4 Tinea corporis; B35.6 Tinea cruris; Z79.4 Long term (current) use of insulin; I10 Essential (primary) hypertension; F32.9 Major depressive disorder, single episode, unspecified; E55.9 Vitamin D deficiency, unspecified; E78.5 Hyperlipidemia, unspecified; F41.9 Anxiety disorder, unspecified; K21.9 Gastro-esophageal reflux disease without esophagitis; Z79.82 Long term (current) use of aspirin; Z79.84 Long term (current) use of oral hypoglycemic drugs; N32.81 Overactive bladder; Z79.899 Other long term (current) drug therapy; G47.00 Insomnia, unspecified
CPT/HCPCS: 36415; 80048; 82962; 85025; 97110; 97116; 97129; 97130; 97162; 97166; 97530; 97535; 97802

== ENCOUNTER → 2023-06-13 | Outpatient (CLI) | payer MEDICARE, OTHER, SELFPAY ==
--- NOTE | 2023-06-13 18:12 | CT_ITS ---
EXAM: CT LEFT LOWER EXTREMITY WITHOUT INTRAVENOUS CONTRAST CLINICAL INDICATION: left ta pain TECHNIQUE: Helically acquired images were obtained of the left lower extremity without intravenous contrast. 2-D reformats were performed by the technologist. This CT exam was performed using one or more of the following dose reduction techniques: automated exposure control, adjustment of the mA and/or kV according to patient size, and/or use of iterative reconstruction technique. COMPARISON: No relevant prior studies available. FINDINGS: BONES/JOINTS: Unremarkable. No acute fracture. No subluxation. Normal alignment. Preservation of the joint space. No sclerotic or destructive changes. SOFT TISSUES: Unremarkable. No soft tissue swelling or gas. No radiopaque foreign body. CT/Extremity Lower without Contra IMPRESSION: No acute fracture or subluxation. Electronically Signed: Chelsy Carter MD at 20:15 EDT Reading Location ID and State: [id number] / Tel , Service support ,
== END | disposition home or self-care (01) ==
LOC: CT 18:10
PROVIDERS: PCP Internal Medicine; Referring Provider Family Medicine Geriatric Medicine; Visit Provider Family Medicine Geriatric Medicine
DX: M79.662 Pain in left lower leg (principal)
CPT/HCPCS: 73700

== ENCOUNTER → 2023-06-15 | Outpatient (CLI) | payer MEDICARE, OTHER, SELFPAY ==
--- NOTE | 2023-06-15 09:37 | MRI_ITS ---
EXAM: MR HEAD WITHOUT INTRAVENOUS CONTRAST CLINICAL INDICATION: Increased weakness. TECHNIQUE: Multiplanar and multisequence MR images of the brain were obtained without intravenous contrast. COMPARISON: MRI brain without contrast 01/01/2020. FINDINGS: BRAIN AND EXTRA-AXIAL SPACES: Multiple T2 FLAIR hyperintensity foci in the white matter of both cerebral hemispheres and faint T2 FLAIR hyperintensity foci across the pontine tegmentum are chronic white matter ischemic changes. They are unchanged. No intra- or extra-axial hemorrhage. No intracranial mass or mass effect. Posterior fossa structures are unremarkable. Ventricles are appropriate for age. No hydrocephalus. Basal cisterns are patent. No diffusion restriction to suspect acute or subacute ischemic infarct. SELLA: Unremarkable. Normal sella turcica, pituitary gland, infundibular stalk, optic chiasm and hypothalamus. AUDITORY SYSTEM: Unremarkable. The internal auditory canals are patent. BONES/JOINTS: Unremarkable. No discrete lytic or blastic abnormalities. SINUSES: Unremarkable as visualized. Clear. MASTOID AIR CELLS: Unremarkable as visualized. Clear. ORBITS: Unremarkable as visualized. Both globes, extraocular muscles, optic nerves and retrobulbar fat appear unremarkable. VASCULATURE: Unremarkable as visualized. Normal flow voids in the major intracranial circulation. MRI/Brain without Contrast IMPRESSION: 1. No MRI evidence of acute or subacute ischemic infarct or remote cortical-based ischemic infarct. 2. Chronic white matter ischemic changes in both cerebral hemispheres and across the pontine tegmentum. 3. No interval change when compared to 01/01/2020. Electronically Signed: Kurtis Mark MD at 12:05 EDT ,
== END | disposition home or self-care (01) ==
LOC: MRI 09:21
PROVIDERS: PCP Internal Medicine; Visit Provider Family Medicine Geriatric Medicine
DX: G81.90 Hemiplegia, unspecified affecting unspecified side (principal)
CPT/HCPCS: 70551

== ENCOUNTER → 2023-08-10 | Outpatient (CLI) | payer MEDICARE, OTHER, SELFPAY ==
--- OUTSIDE RECORDS SUMMARY | 2023-08-10 06:30 | XMS RPT_ITS | CCD ---
Author Name Unknown Address [address] [place] [address] Organization [facility] Care Team Providers Care Director Of Radio Services Name Role Phone Jama SEPULVEDA Alicia D Primary Care Provider SABINO CHANDRA Attending Unavailable TALAMPAS, ALICIA D Primary Care Unavailable RADHA BALDERRAMA Referring Unavailable Talampas Alicia SEPULVEDA Primary Care Provider CLARENCE BERRY Attending Unavailable TALAMPAS, ALICIA D Primary Care Unavailable TALAMPAS, ALICIA D Primary Care Unavailable TALAMPAS, ALICIA D Referring Unavailable TALAMPAS, ALICIA D Primary Care Unavailable TALAMPAS, ALICIA D Referring Unavailable TALAMPAS, ALICIA D Primary Care Unavailable TALAMPAS, ALICIA D Attending Unavailable TALAMPAS, ALICIA D Referring Unavailable BERRY, CLARENCE Attending Unavailable TALAMPAS, ALICIA D Primary Care Unavailable BERRY, CLARENCE Referring Unavailable TALAMPAS, ALICIA D Primary Care Unavailable BERRY, CLARENCE Attending Unavailable TALAMPAS, ALICIA D Primary Care Unavailable TALAMPAS, ALICIA D Primary Care Unavailable TALAMPAS, ALICIA D Primary Care Unavailable CRISPIN CHENG Referring Unavailable TALAMPAS, ALICIA D Primary Care Unavailable QUIANA LEW Referring Unavailable TALAMPAS, ALICIA D Primary Care Unavailable TALAMPAS, ALICIA D Attending Unavailable TALAMPAS, ALICIA D Primary Care Unavailable TALAMPAS, ALICIA D Primary Care Unavailable BERRY, CLARENCE Attending Unavailable TALAMPAS, ALICIA D Primary Care Unavailable BERRY, CLARENCE Referring Unavailable RADHA BALDERRAMA Attending Unavailable Allergies Allergy Classification Reported Allergen(s) Allergy Type Date of Onset Reaction(s) Facility (20 sources) Adhesive Tape; 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: [ADHESIVE TAPE (ROSBRYAN)] Propensity to adverse reactions to substance 9 Hives [facility] Work Phone: (20 sources) Aspirin; 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: [ASPIRIN] Drug Allergy 8 Contraindicatio n-Medical Surgical [facility] (20 sources) bacitracin / neomycin / polymyxin b; 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: [NEOMYCIN-BACITRA STARLA-POLYMYXIN] Drug Allergy 9 Rash [facility] (20 sources) Ciprofloxacin; 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: [CIPROFLOXACIN] Drug Allergy 4 Other: See Comments [facility] (20 sources) Codeine; 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: [CODEINE] Drug Allergy 6 GI Upset [facility] Work Phone: (20 sources) Ibandronate; 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: [IBANDRONATE] Drug Allergy 9 GI Upset [facility] (20 sources) Ibuprofen; 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: [IBUPROFEN] Drug Allergy 6 GI Upset [facility] (20 sources) Iodine; 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: [IODINE] Drug Allergy 9 Vomiting [facility] (20 sources) lansoprazole; 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: [LANSOPRAZOLE] Drug Allergy 2 Diarrhea [facility] (20 sources) metFORMIN; 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: [METFORMIN] Drug Allergy 1 Diarrhea [facility] Work Phone: (20 sources) nabumetone; 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: [NABUMETONE] Drug Allergy 6 GI Upset, Vomiting [facility] Work Phone: (20 sources) NITROFURANTOIN, MACROCRYSTALS / Nitrofurantoin, Monohydrate; 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: [NITROFURANTOIN MONOHYD/M-CRYST] Drug Allergy 2 GI Upset, Anaphylaxis [facility] Work Phone: (20 sources) pantoprazole; 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: [PANTOPRAZOLE] Drug Allergy 0 Diarrhea [facility] (20 sources) pioglitazone; 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: [PIOGLITAZONE HCL] Drug Allergy 7 Swelling [facility] Work Phone: (20 sources) Sucralfate; 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: [SUCRALFATE] Drug Allergy 2 Other: See Comments [facility] (20 sources) shrimp allergenic extract; 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: [SHRIMP] Drug Allergy 2 GI Upset [facility] (3 sources) Miconazole; 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: [MICONAZOLE] Drug Allergy 1 Other: See Comments [facility] Work Phone: (3 sources) pioglitazone; 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: [PIOGLITAZONE] Drug Allergy 1 Unknown [facility] Work Phone: (3 sources) Iodinated Contrast Media; 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: [IODINATED CONTRAST MEDIA] Drug Allergy 3 Vomiting [facility] Work Phone: Medications Current Medications Medication Drug Class(es) Dates Sig (Normalized) Sig (Original) benzonatate 100 mg oral capsule (2 sources) Non-narcotic Antitussive Start: 05-16-2022 End: 05-26-2022 take 2 capsules by mouth three times daily as needed benzonatate (TESSALON PERLE) 100 mg capsule Indications: Suspected COVID-19 virus infection Take 2 capsules by mouth three times daily as needed for up to 10 days. 60 capsule 0 05/16/2022 05/26/2022 Active Completed/Discontinued Medications Medication Drug Class(es) Dates Sig (Normalized) Sig (Original) acetaminophen 325 mg / HYDROcodone bitartrate 5 mg oral tablet (6 sources) Opioid Agonist Start: 10-10-2022 End: 10-24-2022 take 1 tablet by mouth twice daily as needed for pain HYDROcodone-acetami nophen (NORCO) 5-325 mg per tablet Indications: Contusion of right foot, initial encounter , Contusion of christianity region, initial encounter , Injury of coccyx, initial encounter , Facial pain , Jaw pain Take 1 tablet by mouth twice daily as needed for pain for up to 7 days. 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] Onset: 07-28-2015 07-28-2015 Chronic Cancer of bronchus; lung (2 sources) History of malignant neoplasm of thoracic cavity structure; 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: [Personal history of other malignant neoplasm of bronchus and lung] Onset: 07-02-2023 07-02-2023 Episodic Chronic obstructive pulmonary disease and bronchiectasis (9 sources) Bronchiectasis; 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: [Bronchiectasis, uncomplicated] Onset: 05-31-2023 05-31-2023 Chronic Diabetes mellitus with complications (20 sources) Secondary diabetes mellitus; 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: [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, unspecified] Onset: 02-07-2010 08-15-2016 Chronic Diabetes mellitus without complication (4 sources) Latent autoimmune diabetes mellitus in adult; 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 diabetes mellitus without complications] Onset: 07-02-2023 07-02-2023 Chronic Disorders of lipid metabolism (20 sources) Hyperlipidemia; 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: [Hyperlipidemia, unspecified] Onset: 11-06-2016 11-06-2016 Chronic E Codes: Fall (1 source) Fall; 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: [Unspecified fall, initial encounter] Episodic Esophageal disorders (20 sources) Gonzales's esophagus; 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: [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] Onset: 08-20-2017 09-18-2007 Chronic Essential hypertension (20 sources) Hypertensive disorder; 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: [Essential (primary) hypertension] Onset: 08-04-2013 Chronic Fluid and electrolyte disorders (2 sources) Dehydration; 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: [Dehydration] Onset: 07-02-2023 07-02-2023 Episodic Gastritis and duodenitis (1 source) Chronic gastritis; 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: [Unspecified chronic gastritis without bleeding] Chronic Genitourinary symptoms and ill-defined conditions (20 sources) Urge incontinence of urine; 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: [Urge incontinence] Onset: 12-16-2013 12-16-2013 Chronic Headache; including migraine (20 sources) Migraine; 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: [Migraine, unspecified, not intractable, without status migrainosus] Onset: 11-11-2014 08-15-2016 Chronic Headache; including migraine (5 sources) Pain in face; 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: [Facial pain] Episodic Immunizations and screening for infectious disease (1 source) Suspected disease caused by 2019-nCoV; 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: [Suspected COVID-19 virus infection] Episodic Malaise and fatigue (4 sources) Asthenia; 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: [Other malaise] Onset: 07-02-2023 07-02-2023 Episodic Nutritional deficiencies (20 sources) Vitamin D deficiency; 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: [Vitamin D deficiency, unspecified] Onset: 03-10-2018 03-10-2018 Chronic Nutritional deficiencies (2 sources) Vitamin B6 deficiency; 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: [Pyridoxine deficiency] Episodic Osteoarthritis (20 sources) Degenerative joint disease involving multiple joints; 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: [Polyosteoarthritis, unspecified] Onset: 03-06-2006 03-06-2006 Chronic Osteoporosis (20 sources) Osteoporosis; 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: [Age-related osteoporosis without current pathological fracture] Onset: 02-19-2006 02-19-2006 Chronic Other aftercare (3 sources) Patient encounter status; 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: [Other equipment operator intermodal yard (current) drug therapy] Episodic Other connective tissue disease (1 source) Lateral epicondylitis of left humerus; 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: [Lateral epicondylitis, left elbow] Episodic Other connective tissue disease (1 source) Tenosynovitis of left radial styloid; 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: [Radial styloid tenosynovitis [de Quervain]] Episodic Other connective tissue disease (1 source) Pain in left lower limb; 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: [Pain in left lower leg] 07-02-2023 Episodic Other connective tissue disease (1 source) Pain in left lower leg; 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: [Pain in left ta] Onset: 07-02-2023 Episodic Other disorders of stomach and duodenum (1 source) Upset stomach; 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: [Functional dyspepsia] Episodic Other ear and sense organ disorders (1 source) Otalgia, right ear; 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: [Otalgia, unspecified] 04-08-2023 Episodic Other gastrointestinal disorders (20 sources) Irritable bowel syndrome; 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: [Irritable bowel syndrome without diarrhea] Onset: 02-01-2012 Chronic Other hereditary and degenerative nervous system conditions (20 sources) Restless legs; 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: [Restless legs syndrome] Onset: 06-19-2006 11-11-2014 Chronic Other injuries and conditions due to external causes (1 source) Injury of ankle; 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: [Unspecified injury of unspecified ankle, initial encounter] Episodic Other injuries and conditions due to external causes (3 sources) Injury of coccyx; 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: [Unspecified injury of lower back, initial encounter] Episodic Other injuries and conditions due to external causes (2 sources) Injury of head; 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: [Unspecified injury of head, subsequent encounter] Episodic Other nervous system disorders (20 sources) Intercostal neuralgia; 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 mononeuropathies] Onset: 11-03-2016 11-06-2016 Chronic Other nervous system disorders (20 sources) Neuropathy; 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: [Polyneuropathy, unspecified] Onset: 11-18-2021 11-18-2021 Chronic Other upper respiratory disease (20 sources) Allergic rhinitis; 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: [Allergic rhinitis, unspecified] Onset: 03-06-2006 03-06-2006 Chronic Other upper respiratory infections (1 source) Viral upper respiratory tract infection; 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: [Acute upper respiratory infection, unspecified] 04-08-2023 Episodic Residual codes; unclassified (1 source) Bilateral lower limb edema; 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: [Localized edema] Episodic Residual codes; unclassified (2 sources) Postmenopausal state; 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: [Asymptomatic menopausal state] Episodic Septicemia (except in labor) (2 sources) Sepsis; 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: [Sepsis, unspecified organism] Onset: 07-02-2023 07-02-2023 Episodic Spondylosis; intervertebral disc disorders; other back problems (20 sources) Displacement of lumbar intervertebral disc without myelopathy; 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: [Other intervertebral disc displacement, lumbar region] Chronic Unclassified (1 source) Facial pain; 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: [Facial pain] Onset: 09-30-2022 Urinary tract infections (1 source) Urinary tract infectious disease; 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: [Urinary tract infection, site not specified] Episodic Past or Other Problems Problem Classification Problem Date Documented Date Episodic/Chronic Diseases of mouth; excluding dental (20 sources) Xerostomia; 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: [Dry mouth, unspecified] Onset: 11-06-2016 11-06-2016 Episodic Disorders of teeth and jaw (20 sources) Temporomandibular joint disorder; 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: [Unspecified temporomandibular joint disorder, unspecified side] Onset: 11-22-2018 11-22-2018 Episodic Esophageal disorders (20 sources) Esophagitis; 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: [Esophagitis, unspecified] Onset: 11-23-2011 11-23-2011 Episodic Other aftercare (1 source) 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 operator (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; 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: [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, with long-term current use of insulin (HCC)] Onset: 08-15-2016 Episodic Other circulatory disease (20 sources) History of cerebrovascular accident; 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: [Personal history of transient ischemic attack (TIA), and cerebral infarction without residual deficits] Onset: 11-18-2015 11-18-2021 Episodic Other connective tissue disease (1 source) Pain in right foot; 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: [Foot pain, right] Onset: 01-01-2023 Episodic Other disorders of stomach and duodenum (20 sources) Nonulcer dyspepsia; 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: [Functional dyspepsia] Onset: 08-20-2017 08-20-2017 Episodic Other injuries and conditions due to external causes (1 source) Unspecified injury of head, subsequent encounter; 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: [Injury of head, subsequent encounter] Onset: 10-10-2022 Episodic Other injuries and conditions due to external causes (1 source) Unspecified injury of lower back, initial encounter; 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: [Injury of coccyx, initial encounter] Onset: 09-30-2022 Episodic Other lower respiratory disease (20 sources) Chronic cough; 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: [Chronic cough] Onset: 01-27-2020 01-27-2020 Episodic Other upper respiratory disease (20 sources) Bronchospasm; 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: [Other diseases of bronchus, not elsewhere classified] Onset: 01-21-2015 01-21-2015 Episodic Residual codes; unclassified (20 sources) Insomnia; 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: [Insomnia, unspecified] Onset: 04-30-2007 04-30-2007 Episodic Residual codes; unclassified (2 sources) History of lung lobectomy; 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: [Acquired absence of lung [part of]] Onset: 04-25-2022 07-02-2023 Episodic Superficial injury; contusion (8 sources) Contusion of right foot; 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: [Contusion of right foot, initial encounter] Onset: 09-30-2022 Episodic Results Test Name Value Interpretation Reference Range Facil ity Vital Signs Date Time Vital Sign Value Performing Clinician Benita cummings 07-02-2023 14:57-0500 Body weight 65.32 kg Clarence Berry APRN.ACCOUNTANT BOOKKEEPER Work Phone: [facility] 07-02-2023 14:57-0500 Diastolic blood pressure 78 mm[Hg] Clarence Berry APRN.ACCOUNTANT BOOKKEEPER Work Phone: [facility] 07-02-2023 14:57-0500 Heart rate 75 /min Clarence Berry BENCH PRESS OPERATOR.ACCOUNTANT BOOKKEEPER Work Phone: [facility] 07-02-2023 14:57-0500 Respiratory rate 16 /min Clarence Berry BENCH PRESS OPERATOR.ACCOUNTANT BOOKKEEPER Work Phone: [facility] 07-02-2023 14:57-0500 Systolic blood pressure 139 mm[Hg] Clarence Berry BENCH PRESS OPERATOR.ACCOUNTANT BOOKKEEPER Work Phone: [facility] 06-06-2023 12:30-0400 Body temperature 98.2 [degF] Erik Underwood MD Work Phone: [facility] 06-06-2023 12:30-0400 Diastolic blood pressure 73 mm[Hg] Erik Underwood MD Work Phone: [facility] 06-06-2023 12:30-0400 Heart rate 74 /min Erik Underwood MD Work Phone: [facility] 06-06-2023 12:30-0400 Respiratory rate 15 /min Erik Underwood MD Work Phone: [facility] 06-06-2023 12:30-0400 SaO2% (BldA) [Mass fraction] 97 % Erik Underwood MD Work Phone: [facility] 06-06-2023 12:30-0400 Systolic blood pressure 156 mm[Hg] Erik Underwood MD Work Phone: [facility] 06-06-2023 10:58-0400 Body height 157.5 cm Erik Underwood MD Work Phone: [facility] 06-06-2023 10:58-0400 Body weight 65.77 kg Erik Underwood MD Work Phone: [facility] 06-04-2023 09:45-0400 Body height 157.5 cm Radha Balderrama MD Work Phone: [facility] 06-04-2023 09:45-0400 Body temperature 97.81 [degF] Radha Balderrama MD Work Phone: [facility] 06-04-2023 09:45-0400 Body weight 66.13 kg Radha Balderrama MD Work Phone: [facility] 06-04-2023 09:45-0400 Diastolic blood pressure 78 mm[Hg] Radha Balderrama MD Work Phone: [facility] 06-04-2023 09:45-0400 Heart rate 83 /min Radha Balderrama MD Work Phone: [facility] 06-04-2023 09:45-0400 SaO2% (BldA) [Mass fraction] 94 % Radha Balderrama MD Work Phone: [facility] 06-04-2023 09:45-0400 Systolic blood pressure 122 mm[Hg] Radha Balderrama MD Work Phone: [facility] 05-31-2023 09:52-0400 Body weight 65.77 kg Clarence Berry BENCH PRESS OPERATOR.ACCOUNTANT BOOKKEEPER Work Phone: [facility] 05-31-2023 09:52-0400 Diastolic blood pressure 76 mm[Hg] Clarence Berry BENCH PRESS OPERATOR.ACCOUNTANT BOOKKEEPER Work Phone: [facility] 05-31-2023 09:52-0400 Heart rate 78 /min Clarence Berry BENCH PRESS OPERATOR.ACCOUNTANT BOOKKEEPER Work Phone: [facility] 05-31-2023 09:52-0400 Respiratory rate 16 /min Clarence Berry BENCH PRESS OPERATOR.ACCOUNTANT BOOKKEEPER Work Phone: [facility] 05-31-2023 09:52-0400 Systolic blood pressure 133 mm[Hg] Clarence Berry BENCH PRESS OPERATOR.ACCOUNTANT BOOKKEEPER Work Phone: [facility] 04-08-2023 12:38-0400 Body temperature 98.29 [degF] Navya Older BENCH PRESS OPERATOR.TRANSPORTATION ESCORT Work Phone: [facility] 04-08-2023 12:38-0400 Body weight 66.59 kg Navya Older BENCH PRESS OPERATOR.TRANSPORTATION ESCORT Work Phone: [facility] 04-08-2023 12:38-0400 Diastolic blood pressure 72 mm[Hg] Navya Older BENCH PRESS OPERATOR.TRANSPORTATION ESCORT Work Phone: [facility] 04-08-2023 12:38-0400 Heart rate 80 /min Navya Older BENCH PRESS OPERATOR.TRANSPORTATION ESCORT Work Phone: [facility] 04-08-2023 12:38-0400 Respiratory rate 22 /min Navya Older BENCH PRESS OPERATOR.TRANSPORTATION ESCORT Work Phone: [facility] 04-08-2023 12:38-0400 SaO2% (BldA) [Mass fraction] 98 % Navya Older BENCH PRESS OPERATOR.TRANSPORTATION ESCORT Work Phone: [facility] 04-08-2023 12:38-0400 Systolic blood pressure 138 mm[Hg] Navya Older BENCH PRESS OPERATOR.TRANSPORTATION ESCORT Work Phone: [facility] 10-17-2022 15:05-0500 Body weight 71.67 kg Clarence Berry BENCH PRESS OPERATOR.ACCOUNTANT BOOKKEEPER Work Phone: [facility] 10-17-2022 15:05-0500 Diastolic blood pressure 80 mm[Hg] Clarence Berry BENCH PRESS OPERATOR.ACCOUNTANT BOOKKEEPER Work Phone: [facility] 10-17-2022 15:05-0500 Heart rate 68 /min Clarence Berry BENCH PRESS OPERATOR.ACCOUNTANT BOOKKEEPER Work Phone: [facility] 10-17-2022 15:05-0500 Respiratory rate 16 /min Clarence Berry BENCH PRESS OPERATOR.ACCOUNTANT BOOKKEEPER Work Phone: [facility] 10-17-2022 15:05-0500 SaO2% (BldA) [Mass fraction] 98 % Clarence Berry BENCH PRESS OPERATOR.ACCOUNTANT BOOKKEEPER Work Phone: [facility] 10-17-2022 15:05-0500 Systolic blood pressure 130 mm[Hg] Clarence Berry BENCH PRESS OPERATOR.ACCOUNTANT BOOKKEEPER Work Phone: [facility] 10-10-2022 10:10-0500 Body weight 71.67 kg Clarence Berry BENCH PRESS OPERATOR.ACCOUNTANT BOOKKEEPER Work Phone: [facility] 10-10-2022 10:10-0500 Diastolic blood pressure 88 mm[Hg] Clarence Berry BENCH PRESS OPERATOR.ACCOUNTANT BOOKKEEPER Work Phone: [facility] 10-10-2022 10:10-0500 Heart rate 72 /min Clarence Berry BENCH PRESS OPERATOR.ACCOUNTANT BOOKKEEPER Work Phone: [facility] 10-10-2022 10:10-0500 Respiratory rate 16 /min Clarence Berry BENCH PRESS OPERATOR.ACCOUNTANT BOOKKEEPER Work Phone: [facility] 10-10-2022 10:10-0500 SaO2% (BldA) [Mass fraction] 98 % Clarence Berry BENCH PRESS OPERATOR.ACCOUNTANT BOOKKEEPER Work Phone: [facility] 10-10-2022 10:10-0500 Systolic blood pressure 136 mm[Hg] Clarence Berry BENCH PRESS OPERATOR.ACCOUNTANT BOOKKEEPER Work Phone: [facility] 09-30-2022 09:29-0500 Body weight 71.67 kg Alicia Yun MD Work Phone: [facility] 09-30-2022 09:29-0500 Diastolic blood pressure 82 mm[Hg] Alicia Yun MD Work Phone: [facility] 09-30-2022 09:29-0500 Heart rate 84 /min Alicia Yun MD Work Phone: [facility] 09-30-2022 09:29-0500 Respiratory rate 16 /min Alicia Yun MD Work Phone: [facility] 09-30-2022 09:29-0500 Systolic blood pressure 158 mm[Hg] Alicia Yun MD Work Phone: [facility] 05-16-2022 10:18-0400 Body temperature 97.2 [degF] Kaci Praursulaler-Dawit BENCH PRESS OPERATOR.TRANSPORTATION ESCORT Work Phone: [facility] 05-16-2022 10:18-0400 Body weight 71.22 kg Kaci Praursulaler-Dawit BENCH PRESS OPERATOR.TRANSPORTATION ESCORT Work Phone: [facility] 05-16-2022 10:18-0400 Diastolic blood pressure 76 mm[Hg] Kaci Praisler-Dawit BENCH PRESS OPERATOR.TRANSPORTATION ESCORT Work Phone: [facility] 05-16-2022 10:18-0400 Heart rate 83 /min Kaci Praisler-Wood BENCH PRESS OPERATOR.TRANSPORTATION ESCORT Work Phone: [facility] 05-16-2022 10:18-0400 Respiratory rate 18 /min Kaci Praisler-Wood BENCH PRESS OPERATOR.TRANSPORTATION ESCORT Work Phone: [facility] 05-16-2022 10:18-0400 SaO2% (BldA) [Mass fraction] 96 % Kaci Praisler-Wood BENCH PRESS OPERATOR.TRANSPORTATION ESCORT Work Phone: [facility] 05-16-2022 10:18-0400 Systolic blood pressure 140 mm[Hg] Kaci Praisler-Wood BENCH PRESS OPERATOR.TRANSPORTATION ESCORT Work Phone: [facility] 05-02-2022 11:51-0400 Body weight 71.67 kg Clarence Berry BENCH PRESS OPERATOR.ACCOUNTANT BOOKKEEPER Work Phone: [facility] 05-02-2022 11:51-0400 Diastolic blood pressure 82 mm[Hg] Clarence Berry BENCH PRESS OPERATOR.ACCOUNTANT BOOKKEEPER Work Phone: [facility] 05-02-2022 11:51-0400 Heart rate 88 /min Clarence Berry BENCH PRESS OPERATOR.ACCOUNTANT BOOKKEEPER Work Phone: [facility] 05-02-2022 11:51-0400 Respiratory rate 16 /min Clarence Berry BENCH PRESS OPERATOR.ACCOUNTANT BOOKKEEPER Work Phone: [facility] 05-02-2022 11:51-0400 SaO2% (BldA) [Mass fraction] 96 % Clarence Berry BENCH PRESS OPERATOR.ACCOUNTANT BOOKKEEPER Work Phone: [facility] 05-02-2022 11:51-0400 Systolic blood pressure 132 mm[Hg] Clarence Berry BENCH PRESS OPERATOR.ACCOUNTANT BOOKKEEPER Work Phone: [facility] 03-31-2022 14:17-0400 Body weight 70.31 kg Alicia Yun MD Work Phone: [facility] 03-31-2022 14:17-0400 Diastolic blood pressure 78 mm[Hg] Alicia Yun MD Work Phone: [facility] 03-31-2022 14:17-0400 Heart rate 76 /min Alicia Yun MD Work Phone: [facility] 03-31-2022 14:17-0400 SaO2% (BldA) [Mass fraction] 95 % Alicia Yun MD Work Phone: [facility] 03-31-2022 14:17-0400 Systolic blood pressure 128 mm[Hg] Alicia Yun MD Work Phone: [facility] 01-30-2022 12:25-0400 Body temperature 98.29 [degF] Anu Bogner PA-C Work Phone: [facility] 01-30-2022 12:25-0400 Body weight 70.67 kg Anu Bogner PA-C Work Phone: [facility] 01-30-2022 12:25-0400 Diastolic blood pressure 80 mm[Hg] Anu Bogner PA-C Work Phone: [facility] 01-30-2022 12:25-0400 Heart rate 80 /min Anu Bogner PA-C Work Phone: [facility] 01-30-2022 12:25-0400 Respiratory rate 16 /min Anu Bogner PA-C Work Phone: [facility] 01-30-2022 12:25-0400 SaO2% (BldA) [Mass fraction] 97 % Anu Bogner PA-C Work Phone: [facility] 01-30-2022 12:25-0400 Systolic blood pressure 122 mm[Hg] Anu Bogner PA-C Work Phone: [facility] 12-21-2021 09:00-0400 Diastolic blood pressure 82 mm[Hg] Erik Underwood MD Work Phone: [facility] 12-21-2021 09:00-0400 Heart rate 62 /min Erik Underwood MD Work Phone: [facility] 12-21-2021 09:00-0400 Respiratory rate 14 /min Erik Underwood MD Work Phone: [facility] 12-21-2021 09:00-0400 SaO2% (BldA) [Mass fraction] 96 % Erik Underwood MD Work Phone: [facility] [facility]21-[facility]21 09:00-0400 Systolic blood pressure 160 mm[Hg] Erik Underwood MD Work Phone: [facility] 12-21-2021 08:22-0400 Body temperature 97.7 [degF] Erik Underwood MD Work Phone: [facility] 12-21-2021 07:07-0400 Body height 157.5 cm Erik Underwood MD Work Phone: [facility] 12-21-2021 07:07-0400 Body weight 67.59 kg Erik Underwood MD Work Phone: [facility] 11-22-2021 13:09-0400 Body weight 67.59 kg Alicia Yun MD Work Phone: [facility] 11-22-2021 13:09-0400 Diastolic blood pressure 62 mm[Hg] Alicia Yun MD Work Phone: [facility] 11-22-2021 13:09-0400 Heart rate 82 /min Alicia Yun MD Work Phone: [facility] 11-22-2021 13:09-0400 Systolic blood pressure 122 mm[Hg] Alicia Yun MD Work Phone: [facility] Encounters Encounter Date Encounter Type Care Provider Facility Start: 07-19-2023 Refill Alicia kirkpatrick MD Work Phone: [facility] Procedures Date Procedure Procedure Detail Performing Clinician Start: 06-06-2023 Gluc bld gluc mntr dev cleared fda spec home use Sabino Chandra DO Work Phone: Start: 06-06-2023 Esophagogastroduodenoscopy transoral diagnostic Radha Balderrama MD Work Phone: Start: 06-06-2023 Gluc bld gluc mntr dev cleared fda spec home use Sabino Chandra DO Work Phone: Start: 05-31-2023 INFLUENZA VACCINE, PRSV FREE, AGE 65+ YR, HIGH DOSE, QUADRIVALENT (FLUZONE HIGH-DOSE) Clarence Berry BENCH PRESS OPERATOR.ACCOUNTANT BOOKKEEPER Work Phone: Start: 10-10-2022 Ct head/brain w/o contrast material Baldev Berry BENCH PRESS OPERATOR.ACCOUNTANT BOOKKEEPER Work Phone: Start: 05-02-2022 INFLUENZA SEASONAL QUADRIVALENT HIGH DOSE AGE 65+ Clarence Berry BENCH PRESS OPERATOR.ACCOUNTANT BOOKKEEPER Work Phone: Start: 04-03-2022 Dxa bone density study 1/> sites axial skel Alicia Yun MD Work Phone: Start: 12-21-2021 Gluc bld gluc mntr dev cleared fda spec home use Pippa Umina AA Work Phone: Start: 12-21-2021 Esophagoscp rig transoral hypopharynx crv esoph June Limon BENCH PRESS OPERATOR.TRANSPORTATION ESCORT Work Phone: Start: 12-21-2021 Gluc bld gluc mntr dev cleared fda spec home use Pippa Umina AA Work Phone: Start: 11-29-2020 Adult depression screening assessment Alicia Yun MD Work Phone: Plan of Treatment Date Care Activity Detail Author Start: 01-30-2024 3 comp foot exam completed DIABETIC FOOT EXAM [facility] Start: 01-30-2024 ANNUAL PCP TEAM CHRONIC DISEASE VISIT ANNUAL PCP TEAM CHRONIC DISEASE VISIT [facility] Start: 01-27-2024 Hepatitis B surface antibody level LDL CHOLESTEROL [facility] Start: 11-27-2023 Hepb vaccine adult 3 dose schedule for im use HEP B VACCINE, 3-DOSE, AGE 20+ YR (ENGERIX-B, RECOMBIVAX HB) Immunization/Injection Routine Encounter for immunization Expected: 11/27/2023 [facility] Work Phone: Immunizations Immunization Date Immunization Notes Care Provider [facility] 05-31-2023 influenza (HD-IIV4) vaccine, age 65+ yr, high dose, quadrivalent, PF (FLUZONE HIGH-DOSE) Clarence Berry APRN.ACCOUNTANT BOOKKEEPER Work Phone: [facility] Work Phone: 05-02-2022 influenza, high-dose , quadrivalent vaccine (FLUZONE HIGH DOSE QUADRIVALENT) Clarence Berry APRN.ACCOUNTANT BOOKKEEPER Work Phone: [facility] 06-17-2021 zoster vaccine recombinant Alicia Yun MD Work Phone: [facility] 06-09-2021 COVID-19 vaccine, fu ll dose (MODERNA) Alicia Yun MD Work Phone: [facility] 05-25-2021 influenza, high dose seasonal, preservative-free Alicia Yun MD Work Phone: [facility] 03-10-2021 zoster vaccine recombinant Alicia Yun MD Work Phone: [facility] 10-20-2020 COVID-19 vaccine, fu ll dose (MODERNA) Alicia Yun MD Work Phone: [facility] 09-23-2020 COVID-19 vaccine, fu ll dose (MODERNA) Alicia Yun MD Work Phone: [facility] 07-26-2020 pneumococcal polysaccharide vaccine, 23 valent Alicia Yun MD Work Phone: [facility] 04-15-2020 influenza, injectabl e, quadrivalent, preservative free Clarence Berry APRN.ACCOUNTANT BOOKKEEPER Work Phone: [facility] Work Phone: 04-15-2020 influenza, seasonal, injectable Alicia Yun MD Work Phone: [facility] 04-25-2019 influenza, high dose seasonal, preservative-free Alicia Yun MD Work Phone: [facility] Work Phone: 04-20-2018 influenza, high dose seasonal, preservative-free Alicia Yun MD Work Phone: [facility] 05-17-2017 influenza, high dose seasonal, preservative-free Alicia Yun MD Work Phone: [facility] Work Phone: 05-11-2016 influenza, high dose seasonal, preservative-free Alicia Yun MD Work Phone: [facility] 05-12-2015 influenza, high dose seasonal, preservative-free Alicia Yun MD Work Phone: [facility] 09-07-2014 pneumococcal conjuga te vaccine, 13 valent Alicia Yun MD Work Phone: [facility] 05-13-2014 influenza, seasonal, injectable Alicia Yun MD Work Phone: [facility] 05-17-2013 influenza virus vacc ine, unspecified formulation Alicia Yun MD Work Phone: [facility] Work Phone: 05-18-2012 influenza virus vacc ine, unspecified formulation Alicia Yun MD Work Phone: [facility] Work Phone: 06-03-2011 influenza virus vacc ine, unspecified formulation Alicia Yun MD Work Phone: [facility] Work Phone: 05-03-2010 influenza virus vacc ine, unspecified formulation Alicia Yun MD Work Phone: [facility] Work Phone: 05-20-2009 influenza virus vacc ine, unspecified formulation Alicia Yun MD Work Phone: [facility] Work Phone: 05-13-2009 influenza virus vacc ine, unspecified formulation Alicia Yun MD Work Phone: [facility] Work Phone: 06-08-2008 influenza virus vacc ine, unspecified formulation Alicia Yun MD Work Phone: [facility] 01-08-2008 zoster vaccine, live Alicia munoz MD Work Phone: [facility] Work Phone: 09-05-2007 pneumococcal polysaccharide vaccine, 23 valent Alicia Yun MD Work Phone: [facility] Work Phone: 06-06-2007 influenza virus vacc ine, unspecified formulation Alicia Yun MD Work Phone: [facility] Work Phone: 06-19-2006 influenza virus vacc ine, unspecified formulation Alicia Yun MD Work Phone: [facility] Work Phone: 03-22-2006 tetanus toxoid, redu anshul diphtheria toxoid, and acellular pertussis vaccine, adsorbed Alicia Yun MD Work Phone: [facility] 06-08-2005 influenza virus vacc ine, unspecified formulation Alicia Yun MD Work Phone: [facility] Work Phone: Payers Date Payer Category Payer Medicare [id number] 2015 Private Health Insurance HUMANA HUMANA MEDICARE SUPPLEMENT [id number] 2015-Present [phone] [address] [address] [place] [address] Indemnity [id number] 2015 Private Health Insurance HUMANA HUMANA MEDICARE SUPPLEMENT [id number] 2015-Present [phone] [address] [address] [place] [address] Indemnity [id number] 2007 Medicare MEDICARE MEDICAR E A AND B [id number] 2007-Present [phone] [address] [address] [place] [address] Medicare [id number] 2007 Medicare MEDICARE MEDICAR E A AND B [id number] 2007-Present [phone] [place] [address] Medicare [id number] 2007 Medicare [id number] Social History Date Type Detail Facility Start: 02-10-2011 End: 05-02-2022 Tobacco smoking status NHIS Never smoked tobacco [facility] Start: 09-19-2021 End: 07-02-2023 Alcohol intake Current drinker of alcohol (finding) [facility] Start: 10-07-2014 History SDOH Alcohol Comment 2-3 drinks/years [facility] Start: 1940 Sex Assigned At Not on file [facility] Start: 12-11-2021 End: 05-16-2022 Exposure to SARS-CoV-2 (event) Not sure [facility] Start: 02-10-2011 End: 05-02-2022 Tobacco use and exposure Smokeless tobacco non-user [facility] Start: 01-29-2023 End: 07-02-2023 History of Social function [facility] Work Phone: Start: 01-29-2023 End: 07-02-2023 Tobacco use panel [facility] Work Phone: Adult Depression Screening Assessment 0 [facility] Work Phone: Medical Equipment Procedure Code Equipment Code Equipment Origin al Text Equipment Identifier Dates Start: 07-15-2014 End: 04-08-2023 Clinical Notes 11-14-2014 to 07-21-2023 Telephone Encounter - Chelsy Valverde LPN - 07/21/2023 8:34 AM ESTTelephone Encounter - Alicia Yun MD - 07/19/2023 9:09 PM Clarence Aparicio APRN.SIDNEY - 07/02/2023 2:20 PM EST Note Date & Type Note Facility 07-21-2023 Miscellaneous Notes Spoke with pt and information listed below given. Pt verbalizes understanding. Chelsy Valverde LPN Below noted Reviewed PDMP--noted refills have lasted up to 2 months. Follow up sooner than September if needed. The following approved medication requests have been transmitted electronically. Requested Prescriptions Signed Prescriptions Disp Refills LORazepam (ATIVAN) 1 mg tablet 30 tablet 2 Sig: Take 0.5-1 tablets by mouth once daily as needed for up to 90 days. Authorizing Provider: ALICIA YUN MD Spoke to Patient, she is out of refills, has a lot of anxiety, in/out of hospital, needing refill. Patient has been identified by name and date of : Yes Patient phones for refill(s): Requested Prescriptions Pending Prescriptions Disp Refills LORazepam (ATIVAN) 1 mg tablet 30 tablet 2 Sig: TAKE 1/2 TO 1 TABLET BY MOUTH EVERY DAY NEEDED FOR FOR ANXIETY Date of last office visit in primary care: 07/02/2023 Date of next office visit in primary care: 10/01/2023 Last 2 Encounter Wt Readings: Date: Wt: 07/02/2023 65.3 kg (144 lb) 06/06/2023 65.8 kg (145 lb) Previous labs/tests for medication: Not applicable Please advise. Thank you. Juana Muro LPN. Patient has been identified by name and date of : Yes Requested Prescriptions Pending Prescriptions Disp Refills LORazepam (ATIVAN) 1 mg tablet 30 tablet 2 Sig: TAKE 1/2 TO 1 TABLET BY MOUTH EVERY DAY NEEDED FOR FOR ANXIETY RX INSTRUCTIONS: Patient aware RX will be sent to pharmacy. No need to nofity patient. Controlled medication - must be call in. Rupali Muñoz Pss documented in this encounter [facility] 07-02-2023 Note HNO ID: [id number] Author: Clarence Berry APRN.ACCOUNTANT BOOKKEEPER Service: ? Author Type: Nurse Specialist Type: Progress Notes Filed: 07/02/2023 4:24 PM Note Text: SUBJECTIVE: Hepatitis B Vaccine(1 of 3 - Risk 3-dose series) Never done RSV Vaccine(1 - 1-dose 60+ series) Never done DTaP,Tdap,Td Vaccine(2 - Td or Tdap) due on 03/22/2016 Covid-19 Vaccine( season) due on 04/13/2023 HPI Ana Ortega is a 83 year old female. 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) Anxiety Esophagitis, Unspecified Ibs (Irritable Bowel Syndrome) Htn (Hypertension) Urge Urinary Incontinence Migraines Recurrent Bronchospasm Carcinoid Bronchial Adenoma (Hcc) History of Cerebral Infarction Intercostal Neuralgia Mouth Dryness Hyperlipidemia Functional Dyspepsia Gonzales's Esophagus Without Dysplasia Gastroesophageal Reflux Disease With Esophagitis Vitamin D Deficiency Temporomandibular Joint Disorder (Tmj) Chronic Cough Neuropathy Bronchiectasis Without Complication (Hcc) Debility History of Lobectomy of Lung History of Lung Cancer Migraine Without Aura and Responsive to Treatment Dehydration Diabetes 1.5, Managed As Type 1 (Hcc) She was admitted to [facility] June 10 through June 12 for sepsis secondary to UTI. She came via EMS. Noted UTI prescribed Macrobid, emesis, left leg pain. Noted to have left leg pain with extensive work-up which failed to diagnose etiology of the pain, subsequently treated with gabapentin. Urine culture with no growth 06/12/2023. She is advised to follow-up with PCP in 1 week. Noted to have physical deconditioning PT and OT evaluation along with social media content specialist prior to discharge. Continued on Glucerna shakes with meals for increased nutrition until taking oral consistently better. Discharged to SNF. Admit TCU 06/13/2023 to 06/20/2023 for rehabilitation prior to discharge home. She has [facility] home health care. There was a question as to whether she needed to continue with Lasix as she has not had any leg swelling lately. Notes stopped lasix last Sunday. Reported she had not taken it for a while prior to hospital visit. No edema, no weight gain UTI symptoms: no current Fever:no Mobility:using a walker. Oral intake: improved, now using about one glucerna daily Home BS have been controlled OIC: without report of problems at this time. Notes CGM was incorrect prior to hospitalization. Started duloxetine 6mg at night, 30 mg in a.m. Notes less pain in her left ta. Interested in seeing an orthopedic provider for ta pain, [facility] where she has gone before. Notes she did have an injury from a fingernail in this area remotely. Has appointment with Dr Don tomorrow. Followed by Dr King AVALOS regarding DM, has [facility] appointment. Last 14 Encounter BP Readings: Date: BP: 07/02/2023 139/78 06/06/2023 206/98 06/06/2023 156/73 06/04/2023 122/78 05/31/2023 133/76 04/08/2023 138/72 12/30/2022 124/80 10/17/2022 130/80 10/10/2022 136/88 09/30/2022 158/82 05/16/2022 140/76 05/02/2022 132/82 03/31/2022 128/78 01/30/2022 122/80 DIABETES MELLITUS: Without report of excessive thirst or increased frequency of urination, chest pain or dyspnea , numbness, tingling or pain in extremities, new or unusual visual symptoms, low sugar/hypoglycemic reactions, weight loss/gain, lightheadedness/dizziness, and bowel changes/loose stools. Patient's last HgA1C was Hemoglobin A1C (%) Date Value 01/26/2023 7.3 08/02/2022 7.7 03/29/2021 8.0 11/23/2020 7.3 Hemoglobin A1C (POCT) (%) Date Value 03/01/2021 7.9 HGB A1C (no units) Date Value 07/18/2021 7.4 ) Hyperlipidemia. Ms. Ortega reports doing well on current therapy Her most recent lipid panels are: Cholesterol, Total (mg/dL) Date Value 01/26/2023 160 08/02/2022 222 11/23/2020 163 10/20/2019 167 HDL Cholesterol (mg/dL) Date Value 01/26/2023 41 08/02/2022 43 11/23/2020 49 10/20/2019 54 LDL Cholesterol (mg/dL) Date Value 01/26/2023 67 08/02/2022 138 11/23/2020 82 10/20/2019 90 Triglyceride (mg/dL) Date Value 01/26/2023 261 08/02/2022 207 11/23/2020 160 10/20/2019 115 Continues with lorazepam for anxiety. Effective. No adverse effects noted. Review of Systems Constitutional: Negative. Genitourinary: Positive for frequency. Negative for dysuria, hematuria and urgency. Musculoskeletal: Positive for arthralgias. Psychiatric/Behavioral: The patient is nervous/anxious. Objective BP 139/78 Pulse 75 Resp 16 Wt 65.3 kg (144 lb) BMI 26.34 kg/m? Physical Exam Vitals and nursing note reviewed (more content not included)... [facility] 07-02-2023 History of Presen t illness Narrative Images from the original note were not included. SUBJECTIVE: Hepatitis B Vaccine(1 of 3 - Risk 3-dose series) Never done RSV Vaccine(1 - 1-dose 60+ series) Never done DTaP,Tdap,Td Vaccine(2 - Td or Tdap) due on 03/22/2016 Covid-19 Vaccine( season) due on 04/13/2023 REBEKAH Ana Ortega is a 83 year old female. 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) Anxiety Esophagitis, Unspecified Ibs (Irritable Bowel Syndrome) Htn (Hypertension) Urge Urinary Incontinence Migraines Recurrent Bronchospasm Carcinoid Bronchial Adenoma (Hcc) History of Cerebral Infarction Intercostal Neuralgia Mouth Dryness Hyperlipidemia Functional Dyspepsia Gonzales's Esophagus Without Dysplasia Gastroesophageal Reflux Disease With Esophagitis Vitamin D Deficiency Temporomandibular Joint Disorder (Tmj) Chronic Cough Neuropathy Bronchiectasis Without Complication (Hcc) Debility History of Lobectomy of Lung History of Lung Cancer Migraine Without Aura and Responsive to Treatment Dehydration Diabetes 1.5, Managed As Type 1 (Hcc) She was admitted to [facility] June 10 through June 12 for sepsis secondary to UTI. She came via EMS. Noted UTI prescribed Macrobid, emesis, left leg pain. Noted to have left leg pain with extensive work-up which failed to diagnose etiology of the pain, subsequently treated with gabapentin. Urine culture with no growth 06/12/2023. She is advised to follow-up with PCP in 1 week. Noted to have physical deconditioning PT and OT evaluation along with social media content specialist prior to discharge. Continued on Glucerna shakes with meals for increased nutrition until taking oral consistently better. Discharged to SNF. Admit TCU 06/13/2023 to 06/20/2023 for rehabilitation prior to discharge home. She has [facility] home health care. There was a question as to whether she needed to continue with Lasix as she has not had any leg swelling lately. Notes stopped lasix last Sunday. Reported she had not taken it for a while prior to hospital visit. No edema, no weight gain UTI symptoms: no current Fever:no Mobility:using a walker. Oral intake: improved, now using about one glucerna daily Home BS have been controlled OIC: without report of problems at this time. Notes CGM was incorrect prior to hospitalization. Started duloxetine 6mg at night, 30 mg in a.m. Notes less pain in her left ta. Interested in seeing an orthopedic provider for ta pain, [facility] where she has gone before. Notes she did have an injury from a fingernail in this area remotely. Has appointment with Dr Don tomorrow. Followed by Dr Munguia [facility] regarding DM, has July appointment. Last 14 Encounter BP Readings: Date: BP: 07/02/2023 139/78 06/06/2023 206/98 06/06/2023 156/73 06/04/2023 122/78 05/31/2023 133/76 04/08/2023 138/72 12/30/2022 124/80 10/17/2022 130/80 10/10/2022 136/88 09/30/2022 158/82 05/16/2022 140/76 05/02/2022 132/82 03/31/2022 128/78 01/30/2022 122/80 DIABETES MELLITUS: Without report of excessive thirst or increased frequency of urination, chest pain or dyspnea , numbness, tingling or pain in extremities, new or unusual visual symptoms, low sugar/hypoglycemic reactions, weight loss/gain, lightheadedness/dizziness, and bowel changes/loose stools. Patient's last HgA1C was Hemoglobin A1C (%) Date Value 01/26/2023 7.3 08/02/2022 7.7 03/29/2021 8.0 11/23/2020 7.3 Hemoglobin A1C (POCT) (%) Date Value 03/01/2021 7.9 HGB A1C (no units) Date Value 07/18/2021 7.4 ) Hyperlipidemia. Ms. Ortega reports doing well on current therapy Her most recent lipid panels are: Cholesterol, Total (mg/dL) Date Value 01/26/2023 160 08/02/2022 222 11/23/2020 163 10/20/2019 167 HDL Cholesterol (mg/dL) Date Value 01/26/2023 41 08/02/2022 43 11/23/2020 49 10/20/2019 54 LDL Cholesterol (mg/dL) Date Value 01/26/2023 67 08/02/2022 138 11/23/2020 82 10/20/2019 90 Triglyceride (mg/dL) Date Value 01/26/2023 261 08/02/2022 207 11/23/2020 160 10/20/2019 115 Continues with lorazepam for anxiety. Effective. No adverse effects noted. Review of Systems Constitutional: Negative. Genitourinary: Positive for frequency. Negative for dysuria, hematuria and urgency. Musculoskeletal: Positive for arthralgias. Psychiatric/Behavioral: The patient is nervous/anxious. Objective BP 139/78 Pulse 75 Resp 16 Wt 65.3 kg (144 lb) BMI 26.34 kg/m Physical Exam Vitals and nursing note reviewed. Constitutional: General: She is not in acute distress. Appearance: Normal appearance. She is not ill-appearing or diaphoretic. HENT: Head: Normocephalic. Eyes: General: Lids are normal. Conjunctiva/sclera: Conjunctivae normal. Left eye: No hemorrhage. Cardiovascular: Rate and Rhythm: Normal rate and regular rhythm. Heart sounds: Normal heart sounds. Pulmonary: Effort: Pulmonary effort is normal. Breath sounds: Normal breath sounds. Abdominal: General: Bowel sounds are normal. Palpations: Abdomen is soft. Musculoskeletal: Legs: Comments: TTP left ta Skin: General: Skin is warm and dry. Neurological: General: No focal deficit present. Mental Status: She is alert and oriented to person, place, and time. Gait: Gait normal. Comments: seated in wheelchair ALLERGIES Allergen Reactions Adhesive Tape (Chapis* Hives Rash around bandaid never been tested for latex allergy Aspirin Contraindication-Medical Surgical GI bleed Boniva [Ibandronate] GI Upset Esophageal burning Carafate [Sucralfat* Other: See Comments feels poorly Ciprofloxacin Other: See Comments photosensitivity, dermatitis Codeine GI Upset Ibuprofen GI Upset Iodinated Contrast * Vomiting Iodine Vomiting Lansoprazole Diarrhea Macrobid [Nitrofura* GI Upset, Anaphylaxis Headache, nausea, stomach pain Metformin Diarrhea Miconazole Other: See Comments Neosporin [Neomycin* Rash blisters Pioglitazone Unknown Protonix [Pantopraz* Diarrhea Relafen [Nabumetone] GI Upset, Vomiting Shrimp GI Upset Actos [Pioglitazone* Swelling Medications aspirin 81 mg cap Take by mouth. Pyridoxine HCl 250 mg tablet DAILY omeprazole (PRILOSEC) 40 mg capsule Take 40 mg by mouth once daily. metoprolol succinate ER (TOPROL XL) 200 mg 24 hr tablet Take 1 tablet by mouth once daily. LORazepam (ATIVAN) 1 mg tablet TAKE 1/2 TO 1 TABLET BY MOUTH EVERY DAY NEEDED FOR FOR ANXIETY gabapentin (NEURONTIN) 300 mg capsule Take 1 capsule by mouth twice daily for 180 days. Morning and bedtime JARDIANCE 25 mg tablet Take 25 mg by mouth once daily. esomeprazole (NEXIUM) 40 mg capsule Take 1 capsule by mouth DAILY (6 AM). rosuvastatin (CRESTOR) 10 mg tablet Take 1 tablet by mouth daily at bedtime. As directed insulin glargine (LANTUS SOLOSTAR U-100 INSULIN) 100 unit/mL (3 mL) Inject 14 Units subcutaneously daily at bedtime. (Dr. Genny Munguia refills) insulin aspart U-100 (NOVOLOG FLEXPEN U-100 INSULIN) 100 unit/mL (3 mL) Inject 25 Units subcutaneously daily with breakfast AND 25 Units daily with lunch AND 25 Units daily with dinner. Adjust as directed. (Dr. Genny Munguia refjere) Also has SSI. Insulin [place], Disposable, (BD ULTRA-FINE FOZIA PEN NEEDLE) 32 gauge x / Use one needle for each dose, 4 times daily. Dx: Type 2 DM - Controlled E11.9 vibegron (GEMTESA) 75 mg tablet Take 75 mg by mouth once daily. VENTOLIN HFA 90 mcg/actuation inhaler INHALE 2 PUFFS BY MOUTH EVERY 6 HOURS NEEDED FOR SHORTNESS OF BREATH/WHEEZING TOVIAZ 4 mg Tb24 extended release tablet Take 4 mg by mouth once daily. For 30 days multivitamin-folic acid-biotin (UNOS-WUNS-EORVU, SJ-AA-TIAZLR,) 400-2,000 mcg tab Take by mouth. Insulin [place], Disposable, (EASY TOUCH) 31 gauge x 3/16 Use 1 needle for each dose. 4x daily Miscellaneous [employer] [facility] [employer] (E08.40, Z79.4) 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, with long-term current use of insulin vit C/E/Zn/coppr/lutein/zeaxan (PRESERVISION AREDS-2 ORAL) Take by mouth twice daily. Cholecalciferol, Vitamin D3, 1,000 unit cap Take 2 capsules by mouth once daily. multivitamins(DAILY MULTIVITAMIN TAB) Take one(1) tablet daily. DULoxetine (CYMBALTA) 30 mg capsule Take 1 capsule by mouth once daily. Take with breakfast DULoxetine (CYMBALTA) 60 mg capsule Take 1 capsule by mouth daily at bedtime. atorvastatin (LIPITOR) 20 mg tablet Acidophilus-Bif Animalis 10 billion cell cap Take 1 capsule by mouth once daily. flash glucose scanning reader (FREESTYLE DONTRELL 2 READER) flash glucose sensor (FREESTYLE DONTRELL 14 DAY SENSOR) kit celecoxib (CELEBREX) 200 mg capsule Take 1 capsule by mouth once daily. Take with food sertraline (ZOLOFT) 50 mg tablet Take 1 tablet by mouth once daily. (Patient not taking: Reported on 07/02/2023) furosemide (LASIX) 20 mg tablet Take 1 tablet by mouth once daily. As directed for leg swelling (Patient not taking: Reported on 07/02/2023) fexofenadine (JORDIN) 180 mg tablet Take 1 tablet by mouth once daily. As directed for allergies CRANBERRY collagen, bovine, 100 % powd Apply to affected area. Cranberry-Vitamin C-Vitamin E (CRANBERRY PLUS VITAMIN C) 140-100 mg cap Patient takes Cranberry with Vitamin C capsule that contains 15,000 mg Cranberry and 100mg Vitamin C Biotin 2,500 mcg cap Nurse reports patient taking 1500 mcg dose once daily (cannot find 1500mcg dose on menu) COMPOUNDED PRESCRIPTION Custom orthotics (E08.40, Z79.4) 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, with long-term current use of insulin PAST MEDICAL HISTORY Diagnosis Date Acute gastritis without mention of hemorrhage 10/31/2007 Adverse reaction to non-steroidal anti-inflammatory drug (NSAID) 03/28/2010 KATHERIN positive 03/04/2014 Gonzales's esophagus C. difficile diarrhea 10/18/2011 Cataract 04/17/2013 [facility], Dr. Dada Rodríguez. Mild cataract in L eye- no need for cataract surgery at this time. Continue to follow up the cataract. 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 At this time, we anticipate that the patient will be discharged home once clinically stable. Plan: - Discuss needs with patient. - Collaborate with Case management to facilitate DC process - Will continue to evaluate during the post op period. - Desat study 11/14/14: patient will need home oxygen (2 L with exertion only) - Discharge home today with home care for assistance with chest tube to [facility]. [facility] on Sunday[facility]/[address] removal . 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 A face to face encounter was performed during this hospital admission regarding the need for oxygen. The patient verbalized understanding and consents to this therapy. LVATS ODALIS Lobectomy 11/05/2014 74 year old [...] with heimlich -Pain management -Out of bed, cough, deep breathe, acapella, frequent ambulation. -Carb controlled diet . Migraines 11/11/2014 Orthostatic hypotension vasovagal syncope Osteoporosis, unspecified Snoring Tendonitis of ankle, right 05/03/2011 Type II or unspecified type diabetes mellitus without mention of complication, not stated as uncontrolled 02/07/2010 Urge urinary incontinence 12/16/2013 Variants of migraine, not elsewhere classified, without mention of intractable migraine without mention of status migrainosus Social History Tobacco Use Smoking status: Never Smokeless tobacco: Never Substance Use Topics Alcohol use: Yes Comment: 2-3 drinks/years Drug use: No Component Latest Ref Rng & Units 01/26/2023 WBC 3.70 - 11.00 k/uL 6.02 RBC 3.90 - 5.20 m/uL 4.44 Hemoglobin 11.5 - 15.5 g/dL 13.9 Hematocrit 36.0 - 46.0 % 40.8 MCV 80.0 - 100.0 fL 91.9 MCH 26.0 - 34.0 pg 31.3 MCHC 30.5 - 36.0 g/dL 34.1 RDW-CV 11.5 - 15.0 % 13.7 Platelet Count 150 - 400 k/uL 254 MPV 9.0 - 12.7 fL 9.8 Neut% % 55.4 Abs Neut (ANC) 1.45 - 7.50 k/uL 3.34 Lymph% % 29.7 Abs Lymph 1.00 - 4.00 k/uL 1.79 [place]% % 10.0 Abs [place] <0.87 k/uL 0.60 Eosin% % 4.0 Abs Eosin <0.46 k/uL 0.24 Baso% % 0.7 Abs Baso <0.11 k/uL 0.04 Immature Gran % % 0.2 IMMATURE GRANS (ABS) <0.10 k/uL <0.03 NRBC /100 WBC 0.0 Absolute nRBC <0.01 k/uL <0.01 DTYPE Auto Protein, Total 6.3 - 8.0 g/dL 7.3 Albumin 3.9 - 4.9 g/dL 4.4 Calcium 8.5 - 10.2 mg/dL 9.2 Bilirubin, Total 0.2 - 1.3 mg/dL 0.4 Alkaline Phosphatase 34 - 123 U/L 97 AST 13 - 35 U/L 15 ALT 7 - 38 U/L 14 Glucose 74 - 99 mg/dL 248 (H) BUN 7 - 21 mg/dL 14 Creatinine 0.58 - 0.96 mg/dL 0.81 Sodium 136 - 144 mmol/L 136 Potassium 3.7 - 5.1 mmol/L 4.0 Chloride 97 - 105 mmol/L 99 CO2 22 - 30 mmol/L 23 Anion Gap 9 - 18 mmol/L 14 eGFR >=60 mL/min/1.73m 73 Cholesterol, Total <200 mg/dL 160 Triglyceride <150 mg/dL 261 (H) HDL Cholesterol >39 mg/dL 41 Non HDL Cholesterol <130 mg/dL 119 Fasting Time hrs 12 VLDL Cholesterol <30 mg/dL 52 (H) TC:HDL Ratio <5.10 3.90 LDL Cholesterol <100 mg/dL 67 LDL:HDL Ratio <2.54 1.63 Hemoglobin A1C 4.3 - 5.6 % 7.3 (H) Estimated Average Glucose mg/dL 163 Vitamin B6, Plasma 20.0 - 125.0 nmol/L 31.0 Vitamin D 25 Hydroxy 31.0 - 80.0 ng/mL 55.2 ASSESSMENT/PLAN: 1. Debility - ICD9: 799.3, ICD10: R53.81 (primary diagnosis) Admission TCU, [facility] following RN, PT Endorse walking hourly with walker as able. 2. Diabetes 1.5, managed as type 1 (HCC) - ICD9: 250.00, ICD10: E13.[address] Genny Munguia 3. Sepsis, due to unspecified organism, unspecified whether acute organ dysfunction present (HCC) - ICD9: 038.9, 995.91, ICD10: A41.9 Urosepsis No current symptoms Has upcoming appointment with Dr Don. 4. Pain in left ta - ICD9: 729.5, ICD10: M79.662 Unrevealing cause to date. Helped somewhat with gabapentin and duloxetine. - CONSULT TO ORTHOPAEDICS Clarence Berry APRN.CNS Medical Decision Making: Problems: Moderate: Acute illness with systemic symptoms Data: Unique source(s) for external note(s) reviewed: 1 Unique test result(s) reviewed: 3+ Risk: Moderate: Drug management Medical Decision Making Level: 4 - Moderate documented in this encounter [facility] 06-29-2023 Miscellaneous Notes Can review medications at visit Isabella aware of same. Patient would like the lasix addressed at her appointment on 07/02/23. States since she was started on Jardiance she has not had any swelling and wonders if she still needs to take it daily. Noted, okay for home health care . If she has been taking her medications prescribed at discharge and having no problems may continue unchanged. Isabella nurse @ [facility] calling with plan of care. Nursing will see patient 1 x/week for three weeks for fall prevention and UTI education/prevention. Isabella states patient's medication reconciliation @ hospital discharge showed the following allergy alerts: -Patient was discharged home on Aspirin 81 mg chewable daily. Aspirin is documented as allergy. -An allergy flag shows up for Nexium due to documented allergy to Pantoprazole. -She was discharged home on Oxycodone 5 mg every 6 hours for leg pain. An allergy flag shows up due to documented allergy to Codeine. No call back needed unless there are any changes to medication. If medication change, please call Isabella @ [phone]. Jaqueline Jones, RN documented in this encounter [facility] 06-29-2023 Miscellaneous Notes Danielrosina Yury PT @ [facility] calling with plan of care. PT will see patient 2 x/week for three weeks for functional mobility. If agree, no call back needed. Jaqueline Jones RN documented in this encounter [facility] 06-06-2023 Note HNO ID: [id number] Author: Simran Ritchie RN Service: Nursing Author Type: Registered Nurse Type: Nursing Progress Note Filed: 06/06/2023 11:19 AM Note Text: Other: pt ready for OR, call light in reach, called to bedside. [facility] 06-06-2023 History and physical note Images from the original note were not included. HISTORY AND PHYSICAL Ana Ortega 1940 REFERRING PHYSICIAN: Clarence Berry APRN.ACCOUNTANT BOOKKEEPER CHIEF COMPLAINT: Consult (EGD consultation.) HPI: The patient is a 83 year old female referred for endoscopy. Ana notes previous findings of Gonzales's esophagus She last had an upper endoscopy in 2021. She notes swallowing difficulties, occasionally, and points to her throat area. She also notes epigastric abdominal pain - described as aggravating PAST MEDICAL HISTORY PAST MEDICAL HISTORY Diagnosis Date Acute gastritis without mention of hemorrhage 10/31/2007 Adverse reaction to non-steroidal anti-inflammatory drug (NSAID) 03/28/2010 KATHERIN positive 03/04/2014 Gonzales's esophagus C. difficile diarrhea 10/18/2011 Cataract 04/17/2013 [facility], Dr. Dada Rodríguez. Mild cataract in L eye- no need for cataract surgery at this time. Continue to follow up the cataract. 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 At this time, we anticipate that the patient will be discharged home once clinically stable. Plan: - Discuss needs with patient. - Collaborate with Case management to facilitate DC process - Will continue to evaluate during the post op period. - Desat study 11/14/14: patient will need home oxygen (2 L with exertion only) - Discharge home today with home care for assistance with chest tube to [facility]. [facility] Sunday[facility] removal . 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 A face to face encounter was performed during this hospital admission regarding the need for oxygen. The patient verbalized understanding and consents to this therapy. LVATS ODALIS Lobectomy 11/05/2014 74 year old [...] with heimlich -Pain management -Out of bed, cough, deep breathe, acapella, frequent ambulation. -Carb controlled diet . Migraines 11/11/2014 Orthostatic hypotension vasovagal syncope Osteoporosis, unspecified Snoring Tendonitis of ankle, right 05/03/2011 Type II or unspecified type diabetes mellitus without mention of complication, not stated as uncontrolled 02/07/2010 Urge urinary incontinence 12/16/2013 Variants of migraine, not elsewhere classified, without mention of intractable migraine without mention of status migrainosus PAST SURGICAL HISTORY PAST SURGICAL HISTORY Procedure Laterality Date ADENOIDECTOMY PRIMARY <AGE 12 Adenoidectomy CATARACT SURGERY, COMPLEX 04/2010 right eye COLONOSCOPY FLX DX W/COLLJ SPEC WHEN PFRMD 10/31/2007 Colonoscopy COLONOSCOPY FLX DX W/COLLJ SPEC WHEN PFRMD 09/15/2019 Colonoscopy EGD TRANSORAL BIOPSY SINGLE/MULTIPLE 11/01/2009 EGD TRANSORAL BIOPSY SINGLE/MULTIPLE 11/23/2011 EGD W/O [facility] SPEC VARICIES INJ 12/21/2021 EGD W/O [facility] SPEC VARICIES INJ 12/21/2021 ESOPHAGOGASTRODUODENOSCOPY TRANSORAL DIAGNOSTIC 08/09/2004 EGD ESOPHAGOGASTRODUODENOSCOPY TRANSORAL DIAGNOSTIC 10/31/2007 EGD ESOPHAGOGASTRODUODENOSCOPY TRANSORAL DIAGNOSTIC 11/28/2013 EGD ESOPHAGOGASTRODUODENOSCOPY TRANSORAL DIAGNOSTIC 10/08/2014 EGD ESOPHAGOGASTRODUODENOSCOPY TRANSORAL DIAGNOSTIC 10/15/2015 EGD ESOPHAGOGASTRODUODENOSCOPY TRANSORAL DIAGNOSTIC 09/10/2017 EGD ESOPHAGOGASTRODUODENOSCOPY TRANSORAL DIAGNOSTIC 09/15/2019 EGD LUNG SURGERY HX PAST SURGICAL HISTORY OF rotator cuff RMVL LUNG OTHER THAN PNEUMONECTOMY 1 LOBE LOBECT 11/09/2014 VATS left upper lobectomy TONSILLECTOMY PRIMARY/SECONDARY <AGE 14 Tonsillectomy CURRENT MEDICATIONS Current Outpatient Medications Medication Sig metoprolol succinate ER (TOPROL XL) 200 mg 24 hr tablet Take 1 tablet by mouth once daily. LORazepam (ATIVAN) 1 mg tablet TAKE 1/2 TO 1 TABLET BY MOUTH EVERY DAY NEEDED FOR FOR ANXIETY Acidophilus-Bif Animalis 10 billion cell cap Take 1 capsule by mouth once daily. gabapentin (NEURONTIN) 300 mg capsule Take 1 capsule by mouth twice daily for 180 days. Morning and bedtime JARDIANCE 25 mg tablet Take 25 mg by mouth once daily. esomeprazole (NEXIUM) 40 mg capsule Take 1 capsule by mouth DAILY (6 AM). flash glucose scanning reader (FREESTYLE DONTRELL 2 READER) flash glucose sensor (FREESTYLE DONTRELL 14 DAY SENSOR) kit celecoxib (CELEBREX) 200 mg capsule Take 1 capsule by mouth once daily. Take with food rosuvastatin (CRESTOR) 10 mg tablet Take 1 tablet by mouth daily at bedtime. As directed insulin glargine (LANTUS SOLOSTAR U-100 INSULIN) 100 unit/mL (3 mL) Inject 14 Units subcutaneously daily at bedtime. (Dr. Genny Munguia refills) insulin aspart U-100 (NOVOLOG FLEXPEN U-100 INSULIN) 100 unit/mL (3 mL) Inject 25 Units subcutaneously daily with breakfast AND 25 Units daily with lunch AND 25 Units daily with dinner. Adjust as directed. (Dr. Genny Munguia refills) Also has SSI. sertraline (ZOLOFT) 50 mg tablet Take 1 tablet by mouth once daily. Insulin [place], Disposable, (BD ULTRA-FINE FOZIA PEN NEEDLE) 32 gauge x 5/32 Use one needle for each dose, 4 times daily. Dx: Type 2 DM - Controlled E11.9 vibegron (GEMTESA) 75 mg tablet Take 75 mg by mouth once daily. furosemide (LASIX) 20 mg tablet Take 1 tablet by mouth once daily. As directed for leg swelling VENTOLIN HFA 90 mcg/actuation inhaler INHALE 2 PUFFS BY MOUTH EVERY 6 HOURS NEEDED FOR SHORTNESS OF BREATH/WHEEZING fexofenadine (JORDIN) 180 mg tablet Take 1 tablet by mouth once daily. As directed for allergies TOVIAZ 4 mg Tb24 extended release tablet Take 4 mg by mouth once daily. For 30 days multivitamin-folic acid-biotin (MNNE-ULKC-HVEUC, XY-XQ-ECNKLW,) 400-2,000 mcg tab Take by mouth. CRANBERRY collagen, bovine, 100 % powd Apply to affected area. Insulin [place], Disposable, (EASY TOUCH) 31 gauge x 3/16 Use 1 needle for each dose. 4x daily Cranberry-Vitamin C-Vitamin E (CRANBERRY PLUS VITAMIN C) 140-100 mg cap Patient takes Cranberry with Vitamin C capsule that contains 15,000 mg Cranberry and 100mg Vitamin C Biotin 2,500 mcg cap Nurse reports patient taking 1500 mcg dose once daily (cannot find 1500mcg dose on menu) Miscellaneous Medical [employer] [facility] Custom Orthotics (E08.40, Z79.4) 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, with long-term current use of insulin vit C/E/Zn/coppr/lutein/zeaxan (PRESERVISION AREDS-2 ORAL) Take by mouth twice daily. Cholecalciferol, Vitamin D3, 1,000 unit cap Take 2 capsules by mouth once daily. COMPOUNDED PRESCRIPTION Custom orthotics (E08.40, Z79.4) 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, with long-term current use of insulin multivitamins(DAILY MULTIVITAMIN TAB) Take one(1) tablet daily. atorvastatin (LIPITOR) 20 mg tablet DAILY (Patient not taking: Reported on 05/31/2023) No current facility-administered medications for this visit. ALLERGIES: Adhesive Tape (Rosins), Aspirin, Boniva [Ibandronate], Carafate [Sucralfate], Ciprofloxacin, Codeine, Ibuprofen, Iodine, Lansoprazole, Macrobid [Nitrofurantoin Monohyd/M-Cryst], Metformin, Neosporin [Okfzemay-Xgsaxqtacd-Tfiseqigc], Protonix [Pantoprazole], Relafen [Nabumetone], Shrimp, and Actos [Pioglitazone Hcl] PERSONAL HISTORY: SOCIAL HISTORY Social History Tobacco Use Smoking status: Never Smokeless tobacco: Never Substance Use Topics Alcohol use: Yes Comment: 2-3 drinks/years Drug use: No FAMILY HISTORY FAMILY HISTORY Problem Relation Age of Onset Heart Mother Cancer Mother Mesothelioma Cancer Father LUNG Hypertension Maternal Grandfather Osteoporosis Sister Heart Brother congenital heart problems Breast Cancer Sister The review of systems data was entered by the nurse and reviewed by co Nursing Notes: Debra Couch RN 06/04/2023 10:04 AM Signed REVIEW OF SYSTEMS: General: The patient denies fatigue, denies weight loss, denies weight gain, denies feeling hot, and denies feelings of cold. Eyes: The patient denies glaucoma, NOTES eye injury/surgery, wears glasses or contacts. Ear/Nose/Throat: The patient NOTES allergies, denies hayfever, denies ear infections, and denies bloody noses. Cardiovascular: The patient denies chest pain, denies heart disease, NOTES high blood pressure,denies cardiac stent, denies prior heart attack, denies irregular heart beat, denies high cholesterol, denies poor circulation, denies heart failure, other cardiac issues, denies claudication, denies cold feet, denies peripheral arterial stent. Respiratory: The patient denies tuberculosis, denies pneumonia, NOTES frequent cough, denies pulmonary embolism, denies shortness of breath, and denies coughing up blood. Gastrointestinal: The patient denies difficulty swallowing, denies acid reflux, denies ulcers, denies vomiting, denies jaundice/hepatitis, denies gallbladder problems, denies black or tarry stools, NOTES hemorrhoids, denies bleeding from rectum, denies diverticulitis, denies constipation, denies diarrhea, denies loss of stool control, and denies hernias. Kidney/Bladder: The patient denies kidney stones, denies urine infections, and denies bloody urine. Skin: The patient denies a history of skin cancer, denies bleeding/changing moles, and denies a history of skin rash. Neurologic: The patient denies a history of epilepsy/convulsions, NOTES headaches, denies head/spinal injuries, and NOTES stroke/TIA. Psychiatric: The patient denies psychiatric medications, denies depression, and denies voices, denies substance abuse. Endocrine: The patient denies thyroid disorders, NOTES diabetes, and denies hormonal problems. Hematologic: The patient denies a history of bruising, denies bleeding, and denies anemia, denies blood clots. Infections: The patient NOTES a history of measles and mumps, denies rheumatic fever, and denies sexually transmitted diseases. Musculoskeletal: The patient denies back pain/injury, denies back problems, denies sciatica, NOTES knee/foot trouble, NOTES arthritis, or denies gout. When was patient's last Mammogram screening? 2017 Last Colonoscopy: 09/15/2019 Debra Couch RN PHYSICAL EXAMINATION: General: The patient is 83 year old female, well nourished, well hydrated in no acute distress. The patient is oriented to time, place, and person. VITALS: Blood pressure 122/78, pulse 83, temperature 36.6 C (97.8 F), height 157.5 cm (5' 2 ), weight 66.1 kg (145 lb 12.8 oz), SpO2 94 %. Body mass index is 26.67 kg/m . Head: Normal cephalic, atraumatic Eyes: pupils are equally round, sclera are clear/anicteric, wearing glasses Neck is supple with no tracheal deviation Cardiac: normal heart sounds, regular Respiratory: normal breath sounds, normal respiratory excursion and pattern. Abdominal exam: benign Extremities: no clubbing, cyanosis or edema. Neuro: non focal Psych: normal mood Assessment IMPRESSION: Gonzales's esophagus PLAN: I have discussed the above with the patient. She has been offered EGD, possible biopsies I have explained the procedure to the patient. I have counseled the patient as to the risks of the procedure, including but not limited to: infection, bleeding, injury to any intrabdominal organs such as liver/spleen, perforation of the GI tract, inability to complete the procedure, complications of anesthesia, etc. - the patient understands. The patient wishes to proceed. I have answered all questions to the patient s satisfaction and the patient has no further questions. My clinic staff has educated the patient as to the colon cleansing regimen and I have prescribed Golytely for the colon cleansing solution. The patient will be scheduled for the procedure at [facility]. She chooses to have procedure done by Dr. 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 Consultation requested by Clarence Berry for an opinion regarding patient's Gonzales's esophagu. My final recommendations will be communicated back to the requesting physician by way of shared Medical record or letter to requesting physician via US mail. Medical Decision Making: Risk: Low: Low risk from testing/treatment Medical Decision Making Level: 2 - Straightforward Radha Balderrama MD UPDATED HISTORY AND PHYSICAL EXAMINATION SERVICE DATE: 06/06/2023 SERVICE TIME: 11:57 AM PHYSICAL EXAM MUST BE COMPLETED ON ADMISSION The History and Physical (completed in the past 30 days) has been reviewed and the patient has been examined. The contents accurately reflect the patient's condition with the following additions or revisions since the H&P was completed. Examination indicates no changes. This H&P can be found in the attached. SIGNATURE: Erik Underwood III, MD PATIENT NAME: Ana Ortega DATE: June 06, 2023 TIME: 11:56 AM documented in this encounter [facility] 06-06-2023 Nurse Note Other: pt ready for OR, call light in reach, called to bedside. documented in this encounter [facility] 06-05-2023 Miscellaneous Notes Pt called and is notified of providers message and instructions. Pt voices understanding. She will try to call Dr Genny Munguia's office to see how she would like her to take her insulin. Judith Renteria RN Attempted to call pt back but phone just keeps ringing-does not go to . Will need to attempt pt again. Dr Genny Munguia manages her insulin, has she checked with her? Would recommend she reach out to Dr Munguia for instruction if she has not already done so. If unable to reach her would recommend taking one half of the bedtime and breakfast dose if NPO after midnight and the procedure in a.m. Wear her CGM so she can monitor. Resume usual doing once she resumes oral intake Pt having EGD tomorrow morning at 1030 and is wondering what to do about her insulin tonight and tomorrow morning. Pt is to be NPO after midnight. She is concerned if her blood sugar is high in the morning should she take her insulin? States she would rather have her BS high than low. documented in this encounter [facility] 06-04-2023 Note HNO ID: [id number] Author: Radha Balderrama MD Service: ? Author Type: Physician Type: Progress Notes Filed: 06/05/2023 1:54 PM Note Text: HISTORY AND PHYSICAL Ana Ortega 1940 REFERRING PHYSICIAN: Clarence Berry APRN.ACCOUNTANT BOOKKEEPER CHIEF COMPLAINT: Consult (EGD consultation.) HPI: The patient is a 83 year old female referred for endoscopy. Ana notes previous findings of Gonzales's esophagus She last had an upper endoscopy in 2021. She notes swallowing difficulties, occasionally, and points to her throat area. She also notes epigastric abdominal pain - described as aggravating PAST MEDICAL HISTORY Diagnosis Date Acute gastritis without mention of hemorrhage 10/31/2007 Adverse reaction to non-steroidal anti-inflammatory drug (NSAID) 03/28/2010 KATHERIN positive 03/04/2014 Gonzales's esophagus C. difficile diarrhea 10/18/2011 Cataract 04/17/2013 [facility], Dr. Dada Rodríguez. Mild cataract in L eye- no need for cataract surgery at this time. Continue to follow up the cataract. 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 At this time, we anticipate that the patient will be discharged home once clinically stable. Plan: - Discuss needs with patient. - Collaborate with Case management to facilitate DC process - Will continue to evaluate during the post op period. - Desat study 11/14/14: patient will need home oxygen (2 L with exertion only) - Discharge home today with home care for assistance with chest tube to [facility]. [facility] removal . 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 A face to face encounter was performed during this hospital admission regarding the need for oxygen. The patient verbalized understanding and consents to this therapy. LVATS ODALIS Lobectomy 11/05/2014 74 year old [...] with heimlich -Pain management -Out of bed, cough, deep breathe, acapella, frequent ambulation. -Carb controlled diet . Migraines 11/11/2014 Orthostatic hypotension vasovagal syncope Osteoporosis, unspecified Snoring Tendonitis of ankle, right 05/03/2011 Type II or unspecified type diabetes mellitus without mention of complication, not stated as uncontrolled 02/07/2010 Urge urinary incontinence 12/16/2013 Variants of migraine, not elsewhere classified, without mention of intractable migraine without mention of status migrainosus PAST SURGICAL HISTORY Procedure Laterality Date ADENOIDECTOMY PRIMARY Adenoidectomy CATARACT SURGERY, COMPLEX 04/2010 right eye COLONOSCOPY FLX DX W/COLLJ SPEC WHEN PFRMD 10/31/2007 Colonoscopy COLONOSCOPY FLX DX W/COLLJ SPEC WHEN PFRMD 09/15/2019 Colonoscopy EGD TRANSORAL BIOPSY SINGLE/MULTIPLE 11/01/2009 EGD TRANSORAL BIOPSY SINGLE/MULTIPLE 11/23/2011 EGD W/O BRSH SPEC VARICIES INJ 12/21/2021 EGD W/O BRSH SPEC VARICIES INJ 12/21/2021 ESOPHAGOGASTRODUODENOSCOPY TRANSORAL DIAGNOSTIC 08/09/2004 EGD ESOPHAGOGASTRODUODENOSCOPY TRANSORAL DIAGNOSTIC 10/31/2007 EGD ESOPHAGOGASTRODUODENOSCOPY TRANSORAL DIAGNOSTIC 11/28/2013 EGD ESOPHAGOGASTRODUODENOSCOPY TRANSORAL DIAGNOSTIC 10/08/2014 EGD ESOPHAGOGASTRODUODENOSCOPY TRANSORAL DIAGNOSTIC 10/15/2015 EGD ESOPHAGOGASTRODUODENOSCOPY TRANSORAL DIAGNOSTIC 09/10/2017 EGD ESOPHAGOGASTRODUODENOSCOPY TRANSORAL DIAGNOSTIC 09/15/2019 EGD LUNG SURGERY HX PAST SURGICAL HISTORY OF rotator cuff RMVL LUNG OTHER THAN PNEUMONECTOMY 1 LOBE LOBECT 11/09/2014 VATS left upper lobectomy TONSILLECTOMY PRIMARY/SECONDARY Tonsillectomy Current Outpatient Medications Medication Sig metoprolol succinate ER (TOPROL XL) 200 mg 24 hr tablet Take 1 tablet by mouth once daily. LORazepam (ATIVAN) 1 mg tablet TAKE 1/2 TO 1 TABLET BY MOUTH EVERY DAY NEEDED FOR FOR ANXIETY Acidophilus-Bif Animalis 10 billion cell cap Take 1 capsule by mouth once daily. gabapentin (NEURONTIN) 300 mg capsule Take 1 capsule by mouth twice daily for 180 days. Morning and bedtime JARDIANCE 25 mg tablet Take 25 mg by mouth once daily. esomeprazole (NEXIUM) 40 mg capsule Take 1 capsule by mo (more content not included)... [facility] 06-04-2023 History of Presen t illness Narrative HISTORY AND PHYSICAL Ana Ortega 1940 REFERRING PHYSICIAN: Clarence Berry APRN.ACCOUNTANT BOOKKEEPER CHIEF COMPLAINT: Consult (EGD consultation.) HPI: The patient is a 83 year old female referred for endoscopy. Ana notes previous findings of Gonzales's esophagus She last had an upper endoscopy in 2021. She notes swallowing difficulties, occasionally, and points to her throat area. She also notes epigastric abdominal pain - described as aggravating PAST MEDICAL HISTORY Diagnosis Date Acute gastritis without mention of hemorrhage 10/31/2007 Adverse reaction to non-steroidal anti-inflammatory drug (NSAID) 03/28/2010 KATHERIN positive 03/04/2014 Gonzales's esophagus C. difficile diarrhea 10/18/2011 Cataract 04/17/2013 [facility], Dr. Dada Rodríguez. Mild cataract in L eye- no need for cataract surgery at this time. Continue to follow up the cataract. 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 At this time, we anticipate that the patient will be discharged home once clinically stable. Plan: - Discuss needs with patient. - Collaborate with Case management to facilitate DC process - Will continue to evaluate during the post op period. - Desat study 11/14/14: patient will need home oxygen (2 L with exertion only) - Discharge home today with home care for assistance with chest tube to [facility]. Return to [facility] on Sunday11/18/[address] . 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 A face to face encounter was performed during this hospital admission regarding the need for oxygen. The patient verbalized understanding and consents to this therapy. LVATS ODALIS Lobectomy 11/05/2014 74 year old [...] with heimlich -Pain management -Out of bed, cough, deep breathe, acapella, frequent ambulation. -Carb controlled diet . Migraines 11/11/2014 Orthostatic hypotension vasovagal syncope Osteoporosis, unspecified Snoring Tendonitis of ankle, right 05/03/2011 Type II or unspecified type diabetes mellitus without mention of complication, not stated as uncontrolled 02/07/2010 Urge urinary incontinence 12/16/2013 Variants of migraine, not elsewhere classified, without mention of intractable migraine without mention of status migrainosus PAST SURGICAL HISTORY Procedure Laterality Date ADENOIDECTOMY PRIMARY <AGE 12 Adenoidectomy CATARACT SURGERY, COMPLEX 04/2010 right eye COLONOSCOPY FLX DX W/COLLJ SPEC WHEN PFRMD 10/31/2007 Colonoscopy COLONOSCOPY FLX DX W/COLLJ SPEC WHEN PFRMD 09/15/2019 Colonoscopy EGD TRANSORAL BIOPSY SINGLE/MULTIPLE 11/01/2009 EGD TRANSORAL BIOPSY SINGLE/MULTIPLE 11/23/2011 EGD W/O BRSH SPEC VARICIES INJ 12/21/2021 EGD W/O BRSH SPEC VARICIES INJ 12/21/2021 ESOPHAGOGASTRODUODENOSCOPY TRANSORAL DIAGNOSTIC 08/09/2004 EGD ESOPHAGOGASTRODUODENOSCOPY TRANSORAL DIAGNOSTIC 10/31/2007 EGD ESOPHAGOGASTRODUODENOSCOPY TRANSORAL DIAGNOSTIC 11/28/2013 EGD ESOPHAGOGASTRODUODENOSCOPY TRANSORAL DIAGNOSTIC 10/08/2014 EGD ESOPHAGOGASTRODUODENOSCOPY TRANSORAL DIAGNOSTIC 10/15/2015 EGD ESOPHAGOGASTRODUODENOSCOPY TRANSORAL DIAGNOSTIC 09/10/2017 EGD ESOPHAGOGASTRODUODENOSCOPY TRANSORAL DIAGNOSTIC 09/15/2019 EGD LUNG SURGERY HX PAST SURGICAL HISTORY OF rotator cuff RMVL LUNG OTHER THAN PNEUMONECTOMY 1 LOBE LOBECT 11/09/2014 VATS left upper lobectomy TONSILLECTOMY PRIMARY/SECONDARY <AGE 14 Tonsillectomy Current Outpatient Medications Medication Sig metoprolol succinate ER (TOPROL XL) 200 mg 24 hr tablet Take 1 tablet by mouth once daily. LORazepam (ATIVAN) 1 mg tablet TAKE 1/2 TO 1 TABLET BY MOUTH EVERY DAY NEEDED FOR FOR ANXIETY Acidophilus-Bif Animalis 10 billion cell cap Take 1 capsule by mouth once daily. gabapentin (NEURONTIN) 300 mg capsule Take 1 capsule by mouth twice daily for 180 days. Morning and bedtime JARDIANCE 25 mg tablet Take 25 mg by mouth once daily. esomeprazole (NEXIUM) 40 mg capsule Take 1 capsule by mouth DAILY (6 AM). flash glucose scanning reader (FREESTYLE DONTRELL 2 READER) flash glucose sensor (FREESTYLE DONTRELL 14 DAY SENSOR) kit celecoxib (CELEBREX) 200 mg capsule Take 1 capsule by mouth once daily. Take with food rosuvastatin (CRESTOR) 10 mg tablet Take 1 tablet by mouth daily at bedtime. As directed insulin glargine (LANTUS SOLOSTAR U-100 INSULIN) 100 unit/mL (3 mL) Inject 14 Units subcutaneously daily at bedtime. (Dr. Genny funes) insulin aspart U-100 (NOVOLOG FLEXPEN U-100 INSULIN) 100 unit/mL (3 mL) Inject 25 Units subcutaneously daily with breakfast AND 25 Units daily with lunch AND 25 Units daily with dinner. Adjust as directed. (Dr. Genny funes) Also has SSI. sertraline (ZOLOFT) 50 mg tablet Take 1 tablet by mouth once daily. Insulin [place], Disposable, (BD ULTRA-FINE FOZIA PEN NEEDLE) 32 gauge x 532 Use one needle for each dose, 4 times daily. Dx: Type 2 DM - Controlled E11.9 vibegron (GEMTESA) 75 mg tablet Take 75 mg by mouth once daily. furosemide (LASIX) 20 mg tablet Take 1 tablet by mouth once daily. As directed for leg swelling VENTOLIN HFA 90 mcg/actuation inhaler INHALE 2 PUFFS BY MOUTH EVERY 6 HOURS NEEDED FOR SHORTNESS OF BREATH/WHEEZING fexofenadine (JORDIN) 180 mg tablet Take 1 tablet by mouth once daily. As directed for allergies TOVIAZ 4 mg Tb24 extended release tablet Take 4 mg by mouth once daily. For 30 days multivitamin-folic acid-biotin (UKPX-BECM-FSODN, DP-GH-JKWCKP,) 400-2,000 mcg tab Take by mouth. CRANBERRY collagen, bovine, 100 % powd Apply to affected area. Insulin [place], Disposable, (EASY TOUCH) 31 gauge x 3/16 Use 1 needle for each dose. 4x daily Cranberry-Vitamin C-Vitamin E (CRANBERRY PLUS VITAMIN C) 140-100 mg cap Patient takes Cranberry with Vitamin C capsule that contains 15,000 mg Cranberry and 100mg Vitamin C Biotin 2,500 mcg cap Nurse reports patient taking 1500 mcg dose once daily (cannot find 1500mcg dose on menu) Miscellaneous Medical Supply [facility] [employer] Orth[employer] (E08.40, Z79.4) 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, with long-term current use of insulin vit C/E/Zn/coppr/lutein/zeaxan (PRESERVISION AREDS-2 ORAL) Take by mouth twice daily. Cholecalciferol, Vitamin D3, 1,000 unit cap Take 2 capsules by mouth once daily. COMPOUNDED PRESCRIPTION Custom orthotics (E08.40, Z79.4) 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, with long-term current use of insulin multivitamins(DAILY MULTIVITAMIN TAB) Take one(1) tablet daily. atorvastatin (LIPITOR) 20 mg tablet DAILY (Patient not taking: Reported on 05/31/2023) No current facility-administered medications for this visit. ALLERGIES: Adhesive Tape (Rosins), Aspirin, Boniva [Ibandronate], Carafate [Sucralfate], Ciprofloxacin, Codeine, Ibuprofen, Iodine, Lansoprazole, Macrobid [Nitrofurantoin Monohyd/M-Cryst], Metformin, Neosporin [Blhcnzvd-Kowiihotwo-Sxogfjpnk], Protonix [Pantoprazole], Relafen [Nabumetone], Shrimp, and Actos [Pioglitazone Hcl] PERSONAL HISTORY: Social History Tobacco Use Smoking status: Never Smokeless tobacco: Never Substance Use Topics Alcohol use: Yes Comment: 2-3 drinks/years Drug use: No FAMILY HISTORY Problem Relation Age of Onset Heart Mother Cancer Mother Mesothelioma Cancer Father LUNG Hypertension Maternal Grandfather Osteoporosis Sister Heart Brother congenital heart problems Breast Cancer Sister The review of systems data was entered by the nurse and reviewed by co Nursing Notes: Debra Couch RN 06/04/2023 10:04 AM Signed REVIEW OF SYSTEMS: General: The patient denies fatigue, denies weight loss, denies weight gain, denies feeling hot, and denies feelings of cold. Eyes: The patient denies glaucoma, NOTES eye injury/surgery, wears glasses or contacts. Ear/Nose/Throat: The patient NOTES allergies, denies hayfever, denies ear infections, and denies bloody noses. Cardiovascular: The patient denies chest pain, denies heart disease, NOTES high blood pressure,denies cardiac stent, denies prior heart attack, denies irregular heart beat, denies high cholesterol, denies poor circulation, denies heart failure, other cardiac issues, denies claudication, denies cold feet, denies peripheral arterial stent. Respiratory: The patient denies tuberculosis, denies pneumonia, NOTES frequent cough, denies pulmonary embolism, denies shortness of breath, and denies coughing up blood. Gastrointestinal: The patient denies difficulty swallowing, denies acid reflux, denies ulcers, denies vomiting, denies jaundice/hepatitis, denies gallbladder problems, denies black or tarry stools, NOTES hemorrhoids, denies bleeding from rectum, denies diverticulitis, denies constipation, denies diarrhea, denies loss of stool control, and denies hernias. Kidney/Bladder: The patient denies kidney stones, denies urine infections, and denies bloody urine. Skin: The patient denies a history of skin cancer, denies bleeding/changing moles, and denies a history of skin rash. Neurologic: The patient denies a history of epilepsy/convulsions, NOTES headaches, denies head/spinal injuries, and NOTES stroke/TIA. Psychiatric: The patient denies psychiatric medications, denies depression, and denies voices, denies substance abuse. Endocrine: The patient denies thyroid disorders, NOTES diabetes, and denies hormonal problems. Hematologic: The patient denies a history of bruising, denies bleeding, and denies anemia, denies blood clots. Infections: The patient NOTES a history of measles and mumps, denies rheumatic fever, and denies sexually transmitted diseases. Musculoskeletal: The patient denies back pain/injury, denies back problems, denies sciatica, NOTES knee/foot trouble, NOTES arthritis, or denies gout. When was patient's last Mammogram screening? 2017 Last Colonoscopy: 09/15/2019 Debra Couch RN PHYSICAL EXAMINATION: General: The patient is 83 year old female, well nourished, well hydrated in no acute distress. The patient is oriented to time, place, and person. VITALS: Blood pressure 122/78, pulse 83, temperature 36.6 C (97.8 F), height 157.5 cm (5' 2 ), weight 66.1 kg (145 lb 12.8 oz), SpO2 94 %. Body mass index is 26.67 kg/m . Head: Normal cephalic, atraumatic Eyes: pupils are equally round, sclera are clear/anicteric, wearing glasses Neck is supple with no tracheal deviation Cardiac: normal heart sounds, regular Respiratory: normal breath sounds, normal respiratory excursion and pattern. Abdominal exam: benign Extremities: no clubbing, cyanosis or edema. Neuro: non focal Psych: normal mood Assessment IMPRESSION: Gonzales's esophagus PLAN: I have discussed the above with the patient. She has been offered EGD, possible biopsies I have explained the procedure to the patient. I have counseled the patient as to the risks of the procedure, including but not limited to: infection, bleeding, injury to any intrabdominal organs such as liver/spleen, perforation of the GI tract, inability to complete the procedure, complications of anesthesia, etc. - the patient understands. The patient wishes to proceed. I have answered all questions to the patient s satisfaction and the patient has no further questions. My clinic staff has educated the patient as to the colon cleansing regimen and I have prescribed Golytely for the colon cleansing solution. The patient will be scheduled for the procedure at [facility]. She chooses to have procedure done by Dr. 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 Consultation requested by Clarence Berry for an opinion regarding patient's Gonzales's esophagu. My final recommendations will be communicated back to the requesting physician by way of shared Medical record or letter to requesting physician via US mail. Medical Decision Making: Risk: Low: Low risk from testing/treatment Medical Decision Making Level: 2 - Straightforward Radha Balderrama MD documented in this encounter [facility] 06-04-2023 Nurse Note REVIEW OF SYSTEMS: General: The patient denies fatigue, denies weight loss, denies weight gain, denies feeling hot, and denies feelings of cold. Eyes: The patient denies glaucoma, NOTES eye injury/surgery, wears glasses or contacts. Ear/Nose/Throat: The patient NOTES allergies, denies hayfever, denies ear infections, and denies bloody noses. Cardiovascular: The patient denies chest pain, denies heart disease, NOTES high blood pressure,denies cardiac stent, denies prior heart attack, denies irregular heart beat, denies high cholesterol, denies poor circulation, denies heart failure, other cardiac issues, denies claudication, denies cold feet, denies peripheral arterial stent. Respiratory: The patient denies tuberculosis, denies pneumonia, NOTES frequent cough, denies pulmonary embolism, denies shortness of breath, and denies coughing up blood. Gastrointestinal: The patient denies difficulty swallowing, denies acid reflux, denies ulcers, denies vomiting, denies jaundice/hepatitis, denies gallbladder problems, denies black or tarry stools, NOTES hemorrhoids, denies bleeding from rectum, denies diverticulitis, denies constipation, denies diarrhea, denies loss of stool control, and denies hernias. Kidney/Bladder: The patient denies kidney stones, denies urine infections, and denies bloody urine. Skin: The patient denies a history of skin cancer, denies bleeding/changing moles, and denies a history of skin rash. Neurologic: The patient denies a history of epilepsy/convulsions, NOTES headaches, denies head/spinal injuries, and NOTES stroke/TIA. Psychiatric: The patient denies psychiatric medications, denies depression, and denies voices, denies substance abuse. Endocrine: The patient denies thyroid disorders, NOTES diabetes, and denies hormonal problems. Hematologic: The patient denies a history of bruising, denies bleeding, and denies anemia, denies blood clots. Infections: The patient NOTES a history of measles and mumps, denies rheumatic fever, and denies sexually transmitted diseases. Musculoskeletal: The patient denies back pain/injury, denies back problems, denies sciatica, NOTES knee/foot trouble, NOTES arthritis, or denies gout. When was patient's last Mammogram screening? 2017 Last Colonoscopy: 09/15/2019 Debra Couch RN documented in this encounter [facility] 05-31-2023 Note HNO ID: [id number] Author: Clarence Berry APRN.ACCOUNTANT BOOKKEEPER Service: ? Author Type: Nurse Specialist Type: Progress Notes Filed: 06/01/2023 7:10 AM Note Text: SUBJECTIVE: Hepatitis B Vaccine(1 of 3 - Risk 3-dose series) Never done RSV Vaccine(1 - 1-dose 60+ series) Never done DTaP,Tdap,Td Vaccine(2 - Td or Tdap) due on 03/22/2016 Influenza Vaccine(1) due on 04/13/2023 Covid-19 Vaccine( season) due on 04/13/2023 HPI Ana Ortega is a 83 year old female. 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 Zoledronic acid ordered. Has not yet had infusion. Followed by Dr Bran blind escort. History of carcinoid bronchial adenoma, left, s/p VATS ODALIS lobectomy.Seen by Johana Cat 02/2023. Noted to be stable, no recent exacerbation. 6-month follow-up with Dr. Shant recommended. No change in treatments noted. GERD: without current complaints. EGD completed December 21, 2021. Repeat endoscopy in 2-3 years for surveillance recommended. HTN: Without report of headache, chest pain, palpitations, dyspnea, peripheral edema, orthopnea, fatigue, and PND. Last 3 Encounter BP Readings: Date: BP: 04/08/2023 138/72 12/30/2022 124/80 10/17/2022 130/80 DIABETES MELLITUS: Without report of excessive thirst or increased frequency of urination, chest pain or dyspnea , numbness, tingling or pain in extremities, new or unusual visual symptoms, low sugar/hypoglycemic reactions, weight loss/gain, lightheadedness/dizziness, and bowel changes/loose stools. Patient's last HgA1C was Hemoglobin A1C (%) Date Value 01/26/2023 7.3 08/02/2022 7.7 03/29/2021 8.0 11/23/2020 7.3 Hemoglobin A1C (POCT) (%) Date Value 03/01/2021 7.9 HGB A1C (no units) Date Value 07/18/2021 7.4 ) Hyperlipidemia. Ms. Ortega reports doing well on current therapy Her most recent lipid panels are: Cholesterol, Total (mg/dL) Date Value 01/26/2023 160 08/02/2022 222 11/23/2020 163 10/20/2019 167 HDL Cholesterol (mg/dL) Date Value 01/26/2023 41 08/02/2022 43 11/23/2020 49 10/20/2019 54 LDL Cholesterol (mg/dL) Date Value 01/26/2023 67 08/02/2022 138 11/23/2020 82 10/20/2019 90 Triglyceride (mg/dL) Date Value 01/26/2023 261 08/02/2022 207 11/23/2020 160 10/20/2019 115 Continues with lorazepam for anxiety. Effective. No adverse effects noted. Review of Systems Constitutional: Negative. Psychiatric/Behavioral: The patient is nervous/anxious. Objective BP 133/76 Pulse 78 Resp 16 Wt 65.8 kg (145 lb) BMI 26.52 kg/m? Physical Exam Vitals and nursing note reviewed. Constitutional: General: She is not in acute distress. Appearance: Normal appearance. She is not ill-appearing or diaphoretic. HENT: Head: Normocephalic. Eyes: General: Lids are normal. Conjunctiva/sclera: Conjunctivae normal. Left eye: No hemorrhage. Cardiovascular: Rate and Rhythm: Normal rate and regular rhythm. Heart sounds: Normal heart sounds. Pulmonary: Effort: Pulmonary effort is normal. Breath sounds: Normal breath sounds. Abdominal: General: Bowel sounds are normal. Palpations: Abdomen is soft. Skin: General: Skin is warm and dry. Neurological: General: No focal deficit present. Mental Status: She is alert and oriented to person, place, and time. Cranial Nerves: No cranial nerve deficit, dysarthria or facial asymmetry. Sensory: Sensation is intact. No sensory deficit. Motor: No weakness. Coordination: Uapacb-Htuh-Rsncze Test normal. Gait: Gait normal. ALLERGIES Allergen Reactions Adhesive Tape (Chapis* Hives Rash around bandaid never been tested for latex allergy Aspirin Contraindication-Medical Surgical GI bleed Boniva [Ibandronate] GI Upset Esophageal burning Carafate [Sucralfat* Other: See Comments feels poorly Ciprofloxacin Other: See Comments photosensitivity, dermatitis Codeine GI Upset Ibuprofen GI Upset Iodine Vomiting Lansoprazole Diarrhea Macrobid [Nitrofura* GI Upset, Anaphylaxis Headache, nausea, stomach pain Metformin Diarrhea Neosporin [Neomycin* Rash blisters Protonix [Pantop (more content not included)... [facility] 05-31-2023 Instructions Clarence Berry APRN.CNS - 05/31/2023 9:53 AM EDT Consider vaccines: Tdap, influenza, Covid booster, hepatitis B vaccine. 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 Due for EGD in 2023 or 2024. documented in this encounter [facility] 05-31-2023 History of Presen t illness Narrative SUBJECTIVE: Hepatitis B Vaccine(1 of 3 - Risk 3-dose series) Never done RSV Vaccine(1 - 1-dose 60+ series) Never done DTaP,Tdap,Td Vaccine(2 - Td or Tdap) due on 03/22/2016 Influenza Vaccine(1) due on 04/13/2023 Covid-19 Vaccine(6 - 2022-24 season) due on 04/13/2023 REBEKAH Ortega is a 83 year old female. 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 Zoledronic acid ordered. Has not yet had infusion. Followed by Dr Bran blind escort. History of carcinoid bronchial adenoma, left, s/p VATS ODALIS lobectomy.Seen by Johana Cat 02/2023. Noted to be stable, no recent exacerbation. 6-month follow-up with Dr. Bran recommended. No change in treatments noted. GERD: without current complaints. EGD completed December 21, 2021. Repeat endoscopy in 2-3 years for surveillance recommended. HTN: Without report of headache, chest pain, palpitations, dyspnea, peripheral edema, orthopnea, fatigue, and PND. Last 3 Encounter BP Readings: Date: BP: 04/08/2023 138/72 12/30/2022 124/80 10/17/2022 130/80 DIABETES MELLITUS: Without report of excessive thirst or increased frequency of urination, chest pain or dyspnea , numbness, tingling or pain in extremities, new or unusual visual symptoms, low sugar/hypoglycemic reactions, weight loss/gain, lightheadedness/dizziness, and bowel changes/loose stools. Patient's last HgA1C was Hemoglobin A1C (%) Date Value 01/26/2023 7.3 08/02/2022 7.7 03/29/2021 8.0 11/23/2020 7.3 Hemoglobin A1C (POCT) (%) Date Value 03/01/2021 7.9 HGB A1C (no units) Date Value 07/18/2021 7.4 ) Hyperlipidemia. Ms. Ortega reports doing well on current therapy Her most recent lipid panels are: Cholesterol, Total (mg/dL) Date Value 01/26/2023 160 08/02/2022 222 11/23/2020 163 10/20/2019 167 HDL Cholesterol (mg/dL) Date Value 01/26/2023 41 08/02/2022 43 11/23/2020 49 10/20/2019 54 LDL Cholesterol (mg/dL) Date Value 01/26/2023 67 08/02/2022 138 11/23/2020 82 10/20/2019 90 Triglyceride (mg/dL) Date Value 01/26/2023 261 08/02/2022 207 11/23/2020 160 10/20/2019 115 Continues with lorazepam for anxiety. Effective. No adverse effects noted. Review of Systems Constitutional: Negative. Psychiatric/Behavioral: The patient is nervous/anxious. Objective BP 133/76 Pulse 78 Resp 16 Wt 65.8 kg (145 lb) BMI 26.52 kg/m Physical Exam Vitals and nursing note reviewed. Constitutional: General: She is not in acute distress. Appearance: Normal appearance. She is not ill-appearing or diaphoretic. HENT: Head: Normocephalic. Eyes: General: Lids are normal. Conjunctiva/sclera: Conjunctivae normal. Left eye: No hemorrhage. Cardiovascular: Rate and Rhythm: Normal rate and regular rhythm. Heart sounds: Normal heart sounds. Pulmonary: Effort: Pulmonary effort is normal. Breath sounds: Normal breath sounds. Abdominal: General: Bowel sounds are normal. Palpations: Abdomen is soft. Skin: General: Skin is warm and dry. Neurological: General: No focal deficit present. Mental Status: She is alert and oriented to person, place, and time. Cranial Nerves: No cranial nerve deficit, dysarthria or facial asymmetry. Sensory: Sensation is intact. No sensory deficit. Motor: No weakness. Coordination: Ekhkhf-Jbpz-Vcxxso Test normal. Gait: Gait normal. ALLERGIES Allergen Reactions Adhesive Tape (Chapis* Hives Rash around bandaid never been tested for latex allergy Aspirin Contraindication-Medical Surgical GI bleed Boniva [Ibandronate] GI Upset Esophageal burning Carafate [Sucralfat* Other: See Comments feels poorly Ciprofloxacin Other: See Comments photosensitivity, dermatitis Codeine GI Upset Ibuprofen GI Upset Iodine Vomiting Lansoprazole Diarrhea Macrobid [Nitrofura* GI Upset, Anaphylaxis Headache, nausea, stomach pain Metformin Diarrhea Neosporin [Neomycin* Rash blisters Protonix [Pantopraz* Diarrhea Relafen [Nabumetone] GI Upset, Vomiting Shrimp GI Upset Actos [Pioglitazone* Swelling Medications Acidophilus-Bif Animalis 10 billion cell cap Take 1 capsule by mouth once daily. gabapentin (NEURONTIN) 300 mg capsule Take 1 capsule by mouth twice daily for 180 days. Morning and bedtime JARDIANCE 25 mg tablet Take 25 mg by mouth once daily. esomeprazole (NEXIUM) 40 mg capsule Take 1 capsule by mouth DAILY (6 AM). flash glucose scanning reader (HeadCountSTYLE DONTRELL 2 READER) flash glucose sensor (FREESTYLE DONTRELL 14 DAY SENSOR) kit celecoxib (CELEBREX) 200 mg capsule Take 1 capsule by mouth once daily. Take with food rosuvastatin (CRESTOR) 10 mg tablet Take 1 tablet by mouth daily at bedtime. As directed insulin glargine (LANTUS SOLOSTAR U-100 INSULIN) 100 unit/mL (3 mL) Inject 14 Units subcutaneously daily at bedtime. (Dr. Genny Munguia refjere) insulin aspart U-100 (NOVOLOG FLEXPEN U-100 INSULIN) 100 unit/mL (3 mL) Inject 25 Units subcutaneously daily with breakfast AND 25 Units daily with lunch AND 25 Units daily with dinner. Adjust as directed. (Dr. Genny funes) Also has SSI. sertraline (ZOLOFT) 50 mg tablet Take 1 tablet by mouth once daily. Insulin [place], Disposable, (BD ULTRA-FINE FOZIA PEN NEEDLE) 32 gauge x Use one needle for each dose, 4 times daily. Dx: Type 2 DM - Controlled E11.9 vibegron (GEMTESA) 75 mg tablet Take 75 mg by mouth once daily. furosemide (LASIX) 20 mg tablet Take 1 tablet by mouth once daily. As directed for leg swelling VENTOLIN HFA 90 mcg/actuation inhaler INHALE 2 PUFFS BY MOUTH EVERY 6 HOURS NEEDED FOR SHORTNESS OF BREATH/WHEEZING fexofenadine (JORDIN) 180 mg tablet Take 1 tablet by mouth once daily. As directed for allergies TOVIAZ 4 mg Tb24 extended release tablet Take 4 mg by mouth once daily. For 30 days multivitamin-folic acid-biotin (DUZH-WBSM-GSFHH, QF-YR-YEFUQH,) 400-2,000 mcg tab Take by mouth. CRANBERRY collagen, bovine, 100 % powd Apply to affected area. Insulin [place], Disposable, (EASY TOUCH) 31 gauge x 3/16 Use 1 needle for each dose. 4x daily Cranberry-Vitamin C-Vitamin E (CRANBERRY PLUS VITAMIN C) 140-100 mg cap Patient takes Cranberry with Vitamin C capsule that contains 15,000 mg Cranberry and 100mg Vitamin C Biotin 2,500 mcg cap Nurse reports patient taking 1500 mcg dose once daily (cannot find 1500mcg dose on menu) Miscellaneous Medical Supply [facility] [employer] (E08.40, Z79.4) 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, with long-term current use of insulin vit C/E/Zn/coppr/lutein/zeaxan (PRESERVISION AREDS-2 ORAL) Take by mouth twice daily. Cholecalciferol, Vitamin D3, 1,000 unit cap Take 2 capsules by mouth once daily. COMPOUNDED PRESCRIPTION Custom orthotics (E08.40, Z79.4) 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, with long-term current use of insulin atorvastatin (LIPITOR) 20 mg tablet DAILY (Patient not taking: Reported on 05/31/2023) metoprolol succinate ER (TOPROL XL) 200 mg 24 hr tablet Take 1 tablet by mouth once daily. LORazepam (ATIVAN) 1 mg tablet TAKE 1/2 TO 1 TABLET BY MOUTH EVERY DAY NEEDED FOR FOR ANXIETY multivitamins(DAILY MULTIVITAMIN TAB) Take one(1) tablet daily. PAST MEDICAL HISTORY Diagnosis Date Acute gastritis without mention of hemorrhage 10/31/2007 Adverse reaction to non-steroidal anti-inflammatory drug (NSAID) 03/28/2010 KATHERIN positive 03/04/2014 Gonzales's esophagus C. difficile diarrhea 10/18/2011 Cataract 04/17/2013 [facility], Dr. Dada Rodríguez. Mild cataract in L eye- no need for cataract surgery at this time. Continue to follow up the cataract. 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 At this time, we anticipate that the patient will be discharged home once clinically stable. Plan: - Discuss needs with patient. - Collaborate with Case management to facilitate DC process - Will continue to evaluate during the post op period. - Desat study 11/14/14: patient will need home oxygen (2 L with exertion only) - Discharge home today with home care for assistance with chest tube to [facility]. [facility] removal . 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 A face to face encounter was performed during this hospital admission regarding the need for oxygen. The patient verbalized understanding and consents to this therapy. LVATS ODALIS Lobectomy 11/05/2014 74 year old [...] with heimlich -Pain management -Out of bed, cough, deep breathe, acapella, frequent ambulation. -Carb controlled diet . Migraines 11/11/2014 Orthostatic hypotension vasovagal syncope Osteoporosis, unspecified Snoring Tendonitis of ankle, right 05/03/2011 Type II or unspecified type diabetes mellitus without mention of complication, not stated as uncontrolled 02/07/2010 Urge urinary incontinence 12/16/2013 Variants of migraine, not elsewhere classified, without mention of intractable migraine without mention of status migrainosus Social History Tobacco Use Smoking status: Never Smokeless tobacco: Never Substance Use Topics Alcohol use: Yes Comment: 2-3 drinks/years Drug use: No Component Latest Ref Rng & Units 01/26/2023 WBC 3.70 - 11.00 k/uL 6.02 RBC 3.90 - 5.20 m/uL 4.44 Hemoglobin 11.5 - 15.5 g/dL 13.9 Hematocrit 36.0 - 46.0 % 40.8 MCV 80.0 - 100.0 fL 91.9 MCH 26.0 - 34.0 pg 31.3 MCHC 30.5 - 36.0 g/dL 34.1 RDW-CV 11.5 - 15.0 % 13.7 Platelet Count 150 - 400 k/uL 254 MPV 9.0 - 12.7 fL 9.8 Neut% % 55.4 Abs Neut (ANC) 1.45 - 7.50 k/uL 3.34 Lymph% % 29.7 Abs Lymph 1.00 - 4.00 k/uL 1.79 [place]% % 10.0 Abs [place] <0.87 k/uL 0.60 Eosin% % 4.0 Abs Eosin <0.46 k/uL 0.24 Baso% % 0.7 Abs Baso <0.11 k/uL 0.04 Immature Gran % % 0.2 IMMATURE GRANS (ABS) <0.10 k/uL <0.03 NRBC /100 WBC 0.0 Absolute nRBC <0.01 k/uL <0.01 DTYPE Auto Protein, Total 6.3 - 8.0 g/dL 7.3 Albumin 3.9 - 4.9 g/dL 4.4 Calcium 8.5 - 10.2 mg/dL 9.2 Bilirubin, Total 0.2 - 1.3 mg/dL 0.4 Alkaline Phosphatase 34 - 123 U/L 97 AST 13 - 35 U/L 15 ALT 7 - 38 U/L 14 Glucose 74 - 99 mg/dL 248 (H) BUN 7 - 21 mg/dL 14 Creatinine 0.58 - 0.96 mg/dL 0.81 Sodium 136 - 144 mmol/L 136 Potassium 3.7 - 5.1 mmol/L 4.0 Chloride 97 - 105 mmol/L 99 CO2 22 - 30 mmol/L 23 Anion Gap 9 - 18 mmol/L 14 eGFR >=60 mL/min/1.73m 73 Cholesterol, Total <200 mg/dL 160 Triglyceride <150 mg/dL 261 (H) HDL Cholesterol >39 mg/dL 41 Non HDL Cholesterol <130 mg/dL 119 Fasting Time hrs 12 VLDL Cholesterol <30 mg/dL 52 (H) TC:HDL Ratio <5.10 3.90 LDL Cholesterol <100 mg/dL 67 LDL:HDL Ratio <2.54 1.63 Hemoglobin A1C 4.3 - 5.6 % 7.3 (H) Estimated Average Glucose mg/dL 163 Vitamin B6, Plasma 20.0 - 125.0 nmol/L 31.0 Vitamin D 25 Hydroxy 31.0 - 80.0 ng/mL 55.2 ASSESSMENT/PLAN: 1. Bronchiectasis without complication (HCC) - ICD9: 494.0, ICD10: J47.9 (primary diagnosis) 2. 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 Followed by blind escort 3. Encounter for immunization - ICD9: V03.89, ICD10: Z23 - RSV PRINTED PHARMACY INSTRUCTIONS - TDAP PRINTED PHARMACY INSTRUCTIONS - INFLUENZA VACCINE, PRSV FREE, AGE 65+ YR, HIGH DOSE, QUADRIVALENT (FLUZONE HIGH-DOSE) - [employer] COVID-19 VACCINE (2022- SEASON) AGE 12+ YR - HEP B VACCINE, 3-DOSE, AGE 20+ YR (ENGERIX-B, RECOMBIVAX HB) - HEP B VACCINE, 3-DOSE, AGE 20+ YR (ENGERIX-B, RECOMBIVAX HB) - HEP B VACCINE, 3-DOSE, AGE 20+ YR (ENGERIX-B, RECOMBIVAX HB) - INFLUENZA VACCINE, PRSV FREE, AGE 65+ YR, HIGH DOSE, QUADRIVALENT (FLUZONE HIGH-DOSE) 4. 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 - ICD9: 530.85, ICD10: K22.70 Will need follow-up with gastroenterology and subsequent follow-up EGD. - CONSULT TO GASTROENTEROLOGY 5. Essential hypertension - ICD9: 401.9, ICD10: I10 Controlled - Continue current medications - Encouraged sodium restriction, DASH or Mediterranean diet - Recommend regular aerobic exercise as able - METOPROLOL SUCCINATE ER 200 MG TABLET,EXTENDED RELEASE 24 HR 6. Anxiety - ICD9: 300.00, ICD10: F41.9 Continue with current treatment unchanged. No adverse effects noted. Effective. - LORAZEPAM 1 MG TABLET check labs today-not yet completed Keep PCP appointment 01/2024 appt LINDSAY Bonilla APRN.CNS Medical Decision Making: Problems: Moderate: 2+ stable chronic illnesses Risk: Moderate: Drug management Medical Decision Making Level: 4 - Moderate documented in this encounter [facility] 04-08-2023 Note HNO ID: [id number] Author: Navya Lew APRN.CNP Service: ? Author Type: Nurse Practitioner Type: Progress Notes Filed: 04/08/2023 1:07 PM Note Text: CC: Patient presents with: Ear Pain: Right ear pain x 1 day HPI: Ana Ortega is a 82 year old female who presents to the office with complaint of right ear pain since yesterday. For the past few days she has also been experiencing post nasal drainage, scratchy throat and mild cough. Denies muffled hearing, drainage from ears, facial pain/pressure, headache, body aches, fever, wheezing, dyspnea, and fatigue. Treatments tried include nothing so far. Sick contacts: no. History of asthma, frequent episodes of bronchitis, chronic bronchitis, bronchiectasis or COPD: No Smoker: No Seasonal/environmental allergies: No The ROS is otherwise negative. The patient's pmh, medications, allergies, and past visits are reviewed. PHYSICAL EXAM: BP 138/72 Pulse 80 Temp 36.8 ?C (98.3 ?F) Resp 22 Wt 66.6 kg (146 lb 12.8 oz) SpO2 98% BMI 26.85 kg/m? General appearance: healthy, alert, cooperative, pleasant, in no acute distress Head: Normocephalic Eyes: conjunctiva pink and moist, no icterus, sclera white, non-injected Ears: Right ear: External ear/canal- Normal, TM - clear with good landmarks. Left ear: External ear/canal- Normal, TM - clear with good landmarks Nose: clear. Oropharynx:No erythema, exudates or tonsillar hypertrophy. Neck:supple and no adenopathy Heart: Negative. RRR without obvious murmur, gallop, or rubs. No ectopy. Lungs: clear to auscultation, without rales or wheeze, good air exchange ASSESSMENT/PLAN: 1. Viral URI - ICD9: 465.9, ICD10: J06.9 (primary diagnosis) - Discussed viral etiology and rationale for treatment. - Supportive care with fluids and rest - The patient may also use OTC cough and cold meds as needed. - Follow up in one week if symptoms persist or sooner if worsening of symptoms 2. Right ear pain - ICD9: 388.70, ICD10: H92.01 Secondary to viral URI. Start treatment with Flonase. See plan above Prescription instructions reviewed with patient as applicable. Potential red flag symptoms discussed with the patient. Reviewed appropriate action plan to take if red flag symptoms occur. Patient agreeable to treatment plan. Navya Lew APRN.CNP [facility] 04-08-2023 Instructions Navya Lew APRN.CNP - 04/08/2023 12:58 PM EDT For ear pain- Flonase nasal spray daily. Can also take over the counter analgesics such as Tylenol or ibuprofen unless you have been told otherwise documented in this encounter [facility] 04-08-2023 History of Presen t illness Narrative CC: Patient presents with: Ear Pain: Right ear pain x 1 day HPI: Ana Ortega is a 82 year old female who presents to the office with complaint of right ear pain since yesterday. For the past few days she has also been experiencing post nasal drainage, scratchy throat and mild cough. Denies muffled hearing, drainage from ears, facial pain/pressure, headache, body aches, fever, wheezing, dyspnea, and fatigue. Treatments tried include nothing so far. Sick contacts: no. History of asthma, frequent episodes of bronchitis, chronic bronchitis, bronchiectasis or COPD: No Smoker: No Seasonal/environmental allergies: No The ROS is otherwise negative. The patient's pmh, medications, allergies, and past visits are reviewed. PHYSICAL EXAM: BP 138/72 Pulse 80 Temp 36.8 C (98.3 F) Resp 22 Wt 66.6 kg (146 lb 12.8 oz) SpO2 98% BMI 26.85 kg/m General appearance: healthy, alert, cooperative, pleasant, in no acute distress Head: Normocephalic Eyes: conjunctiva pink and moist, no icterus, sclera white, non-injected Ears: Right ear: External ear/canal- Normal, TM - clear with good landmarks. Left ear: External ear/canal- Normal, TM - clear with good landmarks Nose: clear. Oropharynx:No erythema, exudates or tonsillar hypertrophy. Neck:supple and no adenopathy Heart: Negative. RRR without obvious murmur, gallop, or rubs. No ectopy. Lungs: clear to auscultation, without rales or wheeze, good air exchange ASSESSMENT/PLAN: 1. Viral URI - ICD9: 465.9, ICD10: J06.9 (primary diagnosis) - Discussed viral etiology and rationale for treatment. - Supportive care with fluids and rest - The patient may also use OTC cough and cold meds as needed. - Follow up in one week if symptoms persist or sooner if worsening of symptoms 2. Right ear pain - ICD9: 388.70, ICD10: H92.01 Secondary to viral URI. Start treatment with Flonase. See plan above Prescription instructions reviewed with patient as applicable. Potential red flag symptoms discussed with the patient. Reviewed appropriate action plan to take if red flag symptoms occur. Patient agreeable to treatment plan. Navya Lew APRN.NEMESIO documented in this encounter [facility] 04-06-2023 Miscellaneous Notes Spoke with pt and information listed below given. Pt verbalizes understanding. Pt starting back on medication today. Chelsy Valverde LPN She has has refills on Zoloft from September RX to last the year--if was told could stop and wanted to stop, then may discontinue med and would discontinue off medlist to cancel refills at pharmacy; however, if finds Zoloft beneficial without concerning adverse effects, may stay on it. From the last message, sounds like she would like to resume the med, in which case okay to start back on it. Patient just checking with office today , has provider advised on this question for zoloft continuing? Patient would like to take this medication if approved to continue Call back at phone [phone] Pt called to let you know her pharmacy filled prescription for Zoloft and pt thought she was to be off this medication as of 02/07/23. Pt has not been taking this. She takes 1/2 Ativan in the am if needed and sometimes will take 1/2 Ativan in the pm. Does not need every day. Please advise pt on the Zoloft. If you feel she needs to be on this she will take it. But again wanted you to know she has been off this since 02/07/23. Please advise pt. Chelsy Valverde LPN documented in this encounter [facility] 02-08-2023 Miscellaneous Notes Duplicate request. Juana Muro LPN Patient has been identified by name and date of : Yes Last office visit in this department: 08/30/2018 RX INSTRUCTIONS: Patient aware RX will be sent to pharmacy. No need to notify patient. Patient phones requesting refills as follows: Requested Prescriptions Pending Prescriptions Disp Refills LORazepam (ATIVAN) 1 mg tablet 30 tablet 2 Sig: TAKE 1/2 TO 1 TABLET BY MOUTH EVERY DAY NEEDED FOR FOR ANXIETY Acidophilus-Bif Animalis 10 billion cell cap 90 capsule 3 Sig: Take 1 capsule by mouth once daily. Please review and advise. ARTURO Silva documented in this encounter [facility] 01-29-2023 Note HNO ID: [id number] Author: Alicia Yun MD Service: ? Author Type: Physician Type: Progress Notes Filed: 03/03/2023 11:52 PM Note Text: This note was created using [employer]. Subjective Ana Ortega is a 82 year old female. Patient presents with: 4 month follow up SUBJECTIVE: Ana Ortega is a 82 year old year old lady here today for 4 month follow up appointment for review of medical conditions. Noted that Dr. Munguia started her on Jardiance in October 2022. Leg swelling is down. Already has urinary frequency from drinking a lot of water. Working on decreasing insulin doses. Losing weight since started on Jardiance. Having issues with [employer] the company to send her the CGM. Still waiting for shipment of [employer] Pharm[employer] Dontrell. Checking FBS. Noted does better with CGM. Dropped yesterday and felt low. Was able to eat ice cream at [employer] yesterday. Doing well on current meds. Follows with Dr. Don for bladder issues. Hair thinning noted. Using silk/satin pillow case. Getting vitamins in. Getting protein in diet. PAST MEDICAL HISTORY Diagnosis Date Acute gastritis without mention of hemorrhage 10/31/2007 Adverse reaction to non-steroidal anti-inflammatory drug (NSAID) 03/28/2010 KATHERIN positive 03/04/2014 Gonzales's esophagus C. difficile diarrhea 10/18/2011 Cataract 04/17/2013 [facility], Dr. Dada Rodríguez. Mild cataract in L eye- no need for cataract surgery at this time. Continue to follow up the cataract. 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 At this time, we anticipate that the patient will be discharged home once clinically stable. Plan: - Discuss needs with patient. - Collaborate with Case management to facilitate DC process - Will continue to evaluate during the post op period. - Desat study 11/14/14: patient will need home oxygen (2 L with exertion only) - Discharge home today with home care for assistance with chest tube to [facility]. [facility] removal . 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 A face to face encounter was performed during this hospital admission regarding the need for oxygen. The patient verbalized understanding and consents to this therapy. LVATS ODALIS Lobectomy 11/05/2014 74 year old [...] with heimlich -Pain management -Out of bed, cough, deep breathe, acapella, frequent ambulation. -Carb controlled diet . Migraines 11/11/2014 Orthostatic hypotension vasovagal syncope Osteoporosis, unspecified Snoring Tendonitis of ankle, right 05/03/2011 Type II or unspecified type diabetes mellitus without mention of complication, not stated as uncontrolled 02/07/2010 Urge urinary incontinence 12/16/2013 Variants of migraine, not elsewhere classified, without mention of intractable migraine without mention of status migrainosus Current Outpatient Medications Medication Sig JARDIANCE 25 mg tablet Take 25 mg by mouth once daily. esomeprazole (NEXIUM) 40 mg capsule Take 1 capsule by mouth DAILY (6 AM). flash glucose scanning reader (FREESTYLE DONTRELL 2 READER) flash glucose sensor (FREESTYLE DONTRELL 14 DAY SENSOR) kit rosuvastatin (CRESTOR) 10 mg tablet Take 1 tablet by mouth daily at bedtime. As directed insulin glargine (LANTUS SOLOSTAR U-100 INSULIN) 100 unit/mL (3 mL) Inject 14 Units subcutaneously daily at bedtime. (Dr. Genny Munguia refills) insulin aspart U-100 (NOVOLOG FLEXPEN U-100 INSULIN) 100 unit/mL (3 mL) Inject 25 Units subcutaneously daily with breakfast AND 25 Units daily with lunch AND 25 Units daily with dinner. Adjust as directed. (Dr. Genny Munguia refills) Also has SSI. sertraline (ZOLOFT) 50 mg tablet Take 1 tablet by mouth once daily. Insulin [place], Disposable, (BD ULTRA-FINE FOZIA PEN NEEDLE) 32 gauge x 5/32 Use one needle for each dose, 4 times daily. Dx: Type 2 DM - Controlled E11.9 metoprolol succinate ER (TOPROL XL) 200 mg 24 hr tablet Take 1 tablet by mouth once daily. vibegron (GEMTESA) 75 mg tablet Take 75 mg by mouth once daily. furosemide (LASIX) 20 mg tablet Take 1 tablet by m (more content not included)... [facility] 01-25-2023 Miscellaneous Notes Orders placed as requested. Quiana Lew APRN.TRANSPORTATION ESCORT [facility] lab orders due. Please file. Pt has appt 01/29/23 with pcp documented in this encounter [facility] 01-01-2023 Note HNO ID: [id number] Author: Crispin Cheng MD Service: ? Author Type: Physician Type: Progress Notes Filed: 01/01/2023 4:19 PM Note Text: Patient returned for post-op shoe for right great toe distal phalange fracture. She will follow-up with her sales marketing manager. [facility] 01-01-2023 Note HNO ID: [id number] Author: aHnnah Tierney, RT(R) Service: Nuclear Medicine Author Type: Technologist Type: Progress Notes Filed: 01/01/2023 11:47 AM Note Text: Radiology Service Progress Note PATIENT NAME: Ana Ortega DATE OF SERVICE: January 01, 2023 TIME: 11:34 AM PATIENT IDENTITY VERIFICATION COMPLETED USING TWO [...] Applicable RADIOLOGY DEPARTMENT: General X-ray: Exam(s) Completed: Lower Extremity X-Ray(s): Foot, Right and Wt. Bearing PERIPHERAL IV DATA: Not applicable SIGNED BY: RT Gardenia(R) January 01, 2023 11:34 AM [facility] 12-30-2022 Note HNO ID: [id number] Author: Crispin Cheng MD Service: ? Author Type: Physician Type: Progress Notes Filed: 12/30/2022 1:39 PM Note Text: Patient presents with: Foot Trauma: Dropped candle on R foot x2 days HPI: Right foot pain: Duration: dropped a candle on her right foot 2 days ago Location: anterior ankle and proximal dorsal foot Character: aching and sharp, throbbing interrupted sleep last night Radiation: ankle and foot Aggravating: bending and walking Relieving: icy-hot Pain relievers: Tylenol Associated: swelling is improving, neuropathy Pertinent negatives: MEDICATIONS: JARDIANCE 25 mg tablet Take 25 mg by mouth once daily. esomeprazole (NEXIUM) 40 mg capsule Take 1 capsule by mouth DAILY (6 AM). flash glucose scanning reader (FREESTYLE DONTRELL 2 READER) flash glucose sensor (FREESTYLE DONTRELL 14 DAY SENSOR) kit celecoxib (CELEBREX) 200 mg capsule Take 1 capsule by mouth once daily. Take with food LORazepam (ATIVAN) 1 mg tablet TAKE 1/2 TO 1 TABLET BY MOUTH EVERY DAY NEEDED FOR FOR ANXIETY rosuvastatin (CRESTOR) 10 mg tablet Take 1 tablet by mouth daily at bedtime. As directed insulin glargine (LANTUS SOLOSTAR U-100 INSULIN) 100 unit/mL (3 mL) Inject 14 Units subcutaneously daily at bedtime. (Dr. Genny Munguia refills) insulin aspart U-100 (NOVOLOG FLEXPEN U-100 INSULIN) 100 unit/mL (3 mL) Inject 25 Units subcutaneously daily with breakfast AND 25 Units daily with lunch AND 25 Units daily with dinner. Adjust as directed. (Dr. Genny Munguia refills) Also has SSI. sertraline (ZOLOFT) 50 mg tablet Take 1 tablet by mouth once daily. Insulin [place], Disposable, (BD ULTRA-FINE FOZIA PEN NEEDLE) 32 gauge x 5/32 Use one needle for each dose, 4 times daily. Dx: Type 2 DM - Controlled E11.9 gabapentin (NEURONTIN) 300 mg capsule Take 1 capsule by mouth twice daily for 180 days. Morning and bedtime metoprolol succinate ER (TOPROL XL) 200 mg 24 hr tablet Take 1 tablet by mouth once daily. vibegron (GEMTESA) 75 mg tablet Take 75 mg by mouth once daily. (Patient not taking: No sig reported) furosemide (LASIX) 20 mg tablet Take 1 tablet by mouth once daily. As directed for leg swelling VENTOLIN HFA 90 mcg/actuation inhaler INHALE 2 PUFFS BY MOUTH EVERY 6 HOURS NEEDED FOR SHORTNESS OF BREATH/WHEEZING Acidophilus-Bif Animalis 10 billion cell cap Take 1 capsule by mouth once daily. fexofenadine (JORDIN) 180 mg tablet Take 1 tablet by mouth once daily. As directed for allergies TOVIAZ 4 mg Tb24 extended release tablet Take 4 mg by mouth once daily. For 30 days multivitamin-folic acid-biotin (QUCW-GGLL-TCBSE, FA-ZK-KGINDR,) 400-2,000 mcg tab Take by mouth. CRANBERRY collagen, bovine, 100 % powd Apply to affected area. Insulin [place], Disposable, (EASY TOUCH) 31 gauge x 3/16 Use 1 needle for each dose. 4x daily Lancets lancets Micro-lancets to work with current meter - One touch. Sig: Test blood sugar(s) 2 times daily. Dx: Type 2 DM - Controlled E11.9 , Insulin: Yes ketoconazole (NIZORAL) 2 % cream Apply 1 application to affected area twice daily. Continue for 1 week after rash resolves. Cranberry-Vitamin C-Vitamin E (CRANBERRY PLUS VITAMIN C) 140-100 mg cap Patient takes Cranberry with Vitamin C capsule that contains 15,000 mg Cranberry and 100mg Vitamin C Biotin 2,500 mcg cap Nurse reports patient taking 1500 mcg dose once daily (cannot find 1500mcg dose on menu) mirabegron (MYRBETRIQ) 50 mg Tb24 Take 1 tablet by mouth twice daily. (Patient not taking: No sig reported) PREMARIN vaginal cream APPLY 0.5 GRAMS VAGINALLY BEFORE BED EVERY NIGHT FOR 14 DAYS THEN USE TWICE A WEEK FOR 3 MONTHS (Patient not taking: No sig reported) oxybutynin ER (DITROPAN XL) 10 mg 24 hr tablet Take 1 tablet by mouth twice daily. (Dr Don) (Patient not taking: No sig reported) Miscellaneous Medical Supply misc Custom Orthotics (E08.40, Z79.4) 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, with long-term current use of insulin blood sugar diagnostic (EASY TOUCH TEST STRIP) test strip Check blood sugars 2x per day and as needed Dx: E11.9 insulin: yes (Patient not taking: Reported on 10/17/2022) vit C/E/Zn/coppr/lutein/zeaxan (PRESERVISION AREDS-2 ORAL) Take by mouth twice daily. Cholecalciferol, Vitamin D3, 1,000 unit cap Take 2 capsules by mouth once daily. SUMAtriptan (IMITREX) 50 mg tablet Take 1 tablet by mouth. at onset of headache. May take another tablet as needed one hour later. 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 Dx: Type 2 DM - Controlled E11.9 , Insulin: Yes (Patient not taking: Reported on 10/17/2022) Lancets (EASY TOUCH LANCETS) lancets 1 Each twice daily. DX: 250.00 in (more content not included)... [facility] 10-17-2022 Note HNO ID: [id number] Author: Clarence Berry APRN.ACCOUNTANT BOOKKEEPER Service: ? Author Type: Nurse Specialist Type: Progress Notes Filed: 10/17/2022 4:34 PM Note Text: SUBJECTIVE: BP CONTROLLED (<130/80) due on 04/25/2020 DIABETIC FOOT EXAM due on 03/01/2022 ADVANCE DIRECTIVE DISCUSSION due on 08/13/2022 DEPRESSION ASSESSMENT Never done HPI Ana Ortega is a 82 year old female. PMH significant for ACTIVE PROBLEM LIST Osteoporosis, Unspecified Allergic Rhinitis, Cause Unspecified Generalized Osteoarthrosis, Unspecified Site Restless legs syndrome (RLS) LUMBAR DISC DISPLACEMENT Insomnia, Unspecified Gonzaels's Esophagus Diabetes Mellitus Due to Underlying Condition With Diabetic Neuropathy (Hcc) Anxiety Esophagitis, Unspecified Ibs (Irritable Bowel Syndrome) Htn (Hypertension) Urge Urinary Incontinence Migraines Recurrent Bronchospasm Carcinoid Bronchial Adenoma (Hcc) History of Cerebral Infarction Intercostal Neuralgia Mouth Dryness Hyperlipidemia Functional Dyspepsia Gonzales's Esophagus Without Dysplasia Gastroesophageal Reflux Disease With Esophagitis Vitamin D Deficiency Temporomandibular Joint Disorder (Tmj) Chronic Cough Neuropathy HPI excerpted from previous visit: Seen by Alicia Yun MD 09/30/2022. Presented for routine visit. On arrival indicates she had a fall on stairs, 3 steps. Note hit her body mostly on the wall then fell backwards and hit tailbone on the ledge and hit head on the floor. Notes jaw and christianity hurt. Impression was no sign of fracture or concussion. Advised to treat pain and inflammation with naproxen, hydrocodone for breakthrough pain. She was treated with hydrocodone. Ana Ortega presents to follow up after her fall September 28, 2022. Today reports she continues to have a mild right-sided headache which is constant, aching and persisting since the fall unabated. Notes fatigue, sleeping a lot but is arousable. She notes pain on the right side of her face, right shoulder, low back tailbone and left knee. She reports no current vision changes, seen by her eye doctor since last year with a normal exam reported. No speech difficulties. No facial droop. Pain with mobility but able to move arms and legs normally. She notes not taking naproxen or Tylenol currently. Has used Sandwich intermittently which has helped with pain. She notes using a donut for pressure relief in the tailbone area. Today notes headache has resolved. Notes she continues to feel fatigued and is sleeping a lot. Pain is decreased on her right shoulder face and left knee. Present on tailbone but less than before. No vision or speech difficulties no facial droop. No problems walking or moving her arms. Celebrex does help. Does use Sandwich as needed for breakthrough pain. Using pressure relief pillow or donut. Has not yet gone to physical therapy. Plans to go to chiropractor first. Review of Systems Constitutional: Positive for fatigue. Respiratory: Negative. Cardiovascular: Negative. Musculoskeletal: Positive for arthralgias, back pain and myalgias. Neurological: Negative for tremors, seizures, syncope, speech difficulty, weakness, numbness and headaches. Psychiatric/Behavioral: Negative for confusion. Objective BP 130/80 Pulse 68 Resp 16 Wt 71.7 kg (158 lb) SpO2 98% BMI 28.90 kg/m? Physical Exam Vitals and nursing note reviewed. Constitutional: General: She is not in acute distress. Appearance: Normal appearance. She is not ill-appearing or diaphoretic. HENT: Head: Normocephalic. Eyes: General: Lids are normal. Conjunctiva/sclera: Conjunctivae normal. Left eye: No hemorrhage. Cardiovascular: Rate and Rhythm: Normal rate and regular rhythm. Heart sounds: Normal heart sounds. Pulmonary: Effort: Pulmonary effort is normal. Breath sounds: Normal breath sounds. Abdominal: General: Bowel sounds are normal. Palpations: Abdomen is soft. Musculoskeletal: Comments: Tenderness to palpation of right side of face, right neck and shoulder, low back, left knee. Ecchymosis present left knee. Skin: General: Skin is warm and dry. Neurological: General: No focal deficit present. Mental Status: She is alert and oriented to person, place, and time. Cranial Nerves: No cranial nerve deficit, dysarthria or facial asymmetry. Sensory: Sensation is intact. No sensory deficit. Motor: No weakness. Coordination: Yleiww-Idhc-Effsmd Test normal. Gait: Gait normal. ALLERGIES Allergen Reactions Adhesive Tape (Chapis* Hives Rash around bandaid never been tested for latex allergy Aspirin Contraindication-Medical Surgical GI bleed Boniva [Ibandronate] GI Upset Esophageal burning Carafate [Sucralfat* Other: See Comments feels poorly Ciprofloxacin Other: See Comments photosensitivity, dermatitis Codeine GI Upset Ibuprofen GI Upset Iodine Vomiting Lansoprazole Diarrhea Macrobid [Nitrofura* GI Upset, Anaphyla (more content not included)... [facility] 10-17-2022 History of Presen t illness Narrative SUBJECTIVE: BP CONTROLLED (<130/80) due on 04/25/2020 DIABETIC FOOT EXAM due on 03/01/2022 ADVANCE DIRECTIVE DISCUSSION due on 08/13/2022 DEPRESSION ASSESSMENT Never done HPI Ana Ortega is a 82 year old female. 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) Anxiety Esophagitis, Unspecified Ibs (Irritable Bowel Syndrome) Htn (Hypertension) Urge Urinary Incontinence Migraines Recurrent Bronchospasm Carcinoid Bronchial Adenoma (Hcc) History of Cerebral Infarction Intercostal Neuralgia Mouth Dryness Hyperlipidemia Functional Dyspepsia Gonzales's Esophagus Without Dysplasia Gastroesophageal Reflux Disease With Esophagitis Vitamin D Deficiency Temporomandibular Joint Disorder (Tmj) Chronic Cough Neuropathy HPI excerpted from previous visit: Seen by Alicia Yun MD 09/30/2022. Presented for routine visit. On arrival indicates she had a fall on stairs, 3 steps. Note hit her body mostly on the wall then fell backwards and hit tailbone on the ledge and hit head on the floor. Notes jaw and christianity hurt. Impression was no sign of fracture or concussion. Advised to treat pain and inflammation with naproxen, hydrocodone for breakthrough pain. She was treated with hydrocodone. Ana Ortega presents to follow up after her fall September 28, 2022. Today reports she continues to have a mild right-sided headache which is constant, aching and persisting since the fall unabated. Notes fatigue, sleeping a lot but is arousable. She notes pain on the right side of her face, right shoulder, low back tailbone and left knee. She reports no current vision changes, seen by her eye doctor since last year with a normal exam reported. No speech difficulties. No facial droop. Pain with mobility but able to move arms and legs normally. She notes not taking naproxen or Tylenol currently. Has used Sandwich intermittently which has helped with pain. She notes using a donut for pressure relief in the tailbone area. Today notes headache has resolved. Notes she continues to feel fatigued and is sleeping a lot. Pain is decreased on her right shoulder face and left knee. Present on tailbone but less than before. No vision or speech difficulties no facial droop. No problems walking or moving her arms. Celebrex does help. Does use Sandwich as needed for breakthrough pain. Using pressure relief pillow or donut. Has not yet gone to physical therapy. Plans to go to chiropractor first. Review of Systems Constitutional: Positive for fatigue. Respiratory: Negative. Cardiovascular: Negative. Musculoskeletal: Positive for arthralgias, back pain and myalgias. Neurological: Negative for tremors, seizures, syncope, speech difficulty, weakness, numbness and headaches. Psychiatric/Behavioral: Negative for confusion. Objective BP 130/80 Pulse 68 Resp 16 Wt 71.7 kg (158 lb) SpO2 98% BMI 28.90 kg/m Physical Exam Vitals and nursing note reviewed. Constitutional: General: She is not in acute distress. Appearance: Normal appearance. She is not ill-appearing or diaphoretic. HENT: Head: Normocephalic. Eyes: General: Lids are normal. Conjunctiva/sclera: Conjunctivae normal. Left eye: No hemorrhage. Cardiovascular: Rate and Rhythm: Normal rate and regular rhythm. Heart sounds: Normal heart sounds. Pulmonary: Effort: Pulmonary effort is normal. Breath sounds: Normal breath sounds. Abdominal: General: Bowel sounds are normal. Palpations: Abdomen is soft. Musculoskeletal: Comments: Tenderness to palpation of right side of face, right neck and shoulder, low back, left knee. Ecchymosis present left knee. Skin: General: Skin is warm and dry. Neurological: General: No focal deficit present. Mental Status: She is alert and oriented to person, place, and time. Cranial Nerves: No cranial nerve deficit, dysarthria or facial asymmetry. Sensory: Sensation is intact. No sensory deficit. Motor: No weakness. Coordination: Qyahqy-Qgeq-Qzjkyn Test normal. Gait: Gait normal. ALLERGIES Allergen Reactions Adhesive Tape (Chapis* Hives Rash around bandaid never been tested for latex allergy Aspirin Contraindication-Medical Surgical GI bleed Boniva [Ibandronate] GI Upset Esophageal burning Carafate [Sucralfat* Other: See Comments feels poorly Ciprofloxacin Other: See Comments photosensitivity, dermatitis Codeine GI Upset Ibuprofen GI Upset Iodine Vomiting Lansoprazole Diarrhea Macrobid [Nitrofura* GI Upset, Anaphylaxis Headache, nausea, stomach pain Metformin Diarrhea Neosporin [Neomycin* Rash blisters Protonix [Pantopraz* Diarrhea Relafen [Nabumetone] GI Upset, Vomiting Shrimp GI Upset Actos [Pioglitazone* Swelling flash glucose scanning reader (FREESTYLE DONTRELL 2 READER)^^Disp: ^Rfl: flash glucose sensor (FREESTYLE DONTRELL 14 DAY SENSOR) kit^^Disp: ^Rfl: HYDROcodone-acetaminophen (NORCO) 5-325 mg per tablet^Take 1 tablet by mouth twice daily as needed for pain for up to 7 days.^Disp: 14 tablet^Rfl: 0 celecoxib (CELEBREX) 200 mg capsule^Take 1 capsule by mouth once daily. Take with food^Disp: 30 capsule^Rfl: 5 LORazepam (ATIVAN) 1 mg tablet^TAKE 1/2 TO 1 TABLET BY MOUTH EVERY DAY NEEDED FOR FOR ANXIETY^Disp: 30 tablet^Rfl: 2 [START ON 10/25/2022] rosuvastatin (CRESTOR) 10 mg tablet^Take 1 tablet by mouth daily at bedtime. As directed^Disp: 90 tablet^Rfl: 3 insulin glargine (LANTUS SOLOSTAR U-100 INSULIN) 100 unit/mL (3 mL)^Inject 14 Units subcutaneously daily at bedtime. (Dr. Genny funes)^Disp: ^Rfl: insulin aspart U-100 (NOVOLOG FLEXPEN U-100 INSULIN) 100 unit/mL (3 mL)^Inject 25 Units subcutaneously daily with breakfast AND 25 Units daily with lunch AND 25 Units daily with dinner. Adjust as directed. (Dr. Genny funes) Also has SSI.^Disp: ^Rfl: sertraline (ZOLOFT) 50 mg tablet^Take 1 tablet by mouth once daily.^Disp: 90 tablet^Rfl: 3 Insulin [place], Disposable, (BD ULTRA-FINE FOZIA PEN NEEDLE) 32 gauge x 5/32 ^Use one needle for each dose, 4 times daily. Dx: Type 2 DM - Controlled E11.9^Disp: 100 Each^Rfl: 11 gabapentin (NEURONTIN) 300 mg capsule^Take 1 capsule by mouth twice daily for 180 days. Morning and bedtime^Disp: 180 capsule^Rfl: 1 metoprolol succinate ER (TOPROL XL) 200 mg 24 hr tablet^Take 1 tablet by mouth once daily.^Disp: 90 tablet^Rfl: 3 furosemide (LASIX) 20 mg tablet^Take 1 tablet by mouth once daily. As directed for leg swelling^Disp: 30 tablet^Rfl: 1 VENTOLIN HFA 90 mcg/actuation inhaler^INHALE 2 PUFFS BY MOUTH EVERY 6 HOURS NEEDED FOR SHORTNESS OF BREATH/WHEEZING^Disp: ^Rfl: Acidophilus-Bif Animalis 10 billion cell cap^Take 1 capsule by mouth once daily.^Disp: 90 capsule^Rfl: 3 fexofenadine (JORDIN) 180 mg tablet^Take 1 tablet by mouth once daily. As directed for allergies^Disp: ^Rfl: esomeprazole (NEXIUM) 40 mg capsule^Take 1 capsule by mouth DAILY (6 AM).^Disp: 90 capsule^Rfl: 3 TOVIAZ 4 mg Tb24 extended release tablet^Take 4 mg by mouth once daily. For 30 days^Disp: ^Rfl: multivitamin-folic acid-biotin ([id number]-TPXSC, TT-MH-[id number],) 400-2,000 mcg tab^Take by mouth.^Disp: ^Rfl: CRANBERRY^ ^Disp: ^Rfl: collagen, bovine, 100 % powd^Apply to affected area.^Disp: ^Rfl: Insulin [place], Disposable, (EASY TOUCH) 31 gauge x 3/16 ^Use 1 needle for each dose. 4x daily^Disp: 360 Each^Rfl: 3 Lancets lancets^Micro-lancets to work with current meter - One touch. Sig: Test blood sugar(s) 2 times daily. Dx: Type 2 DM - Controlled E11.9 , Insulin: Yes^Disp: 100 Each^Rfl: 11 ketoconazole (NIZORAL) 2 % cream^Apply 1 application to affected area twice daily. 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, with long-term current use of insulin^Disp: 2 Each^Rfl: 0 vit C/E/Zn/coppr/lutein/zeaxan (PRESERVISION AREDS-2 ORAL)^Take by mouth twice daily.^Disp: ^Rfl: Cholecalciferol, Vitamin D3, 1,000 unit cap^Take 2 capsules by mouth once daily.^Disp: ^Rfl: 0 COMPOUNDED PRESCRIPTION^Custom orthotics (E08.40, Z79.4) 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, with long-term current use of insulin^Disp: 2 Each^Rfl: 0 multivitamins(DAILY MULTIVITAMIN TAB)^Take one(1) tablet daily.^Disp: ^Rfl: 0 vibegron (GEMTESA) 75 mg tablet^Take 75 mg by mouth once daily.^Disp: ^Rfl: (Patient not taking: No sig reported) mirabegron (MYRBETRIQ) 50 mg Tb24^Take 1 tablet by mouth twice daily.^Disp: ^Rfl: (Patient not taking: No sig reported) PREMARIN vaginal cream^APPLY 0.5 GRAMS VAGINALLY BEFORE BED EVERY NIGHT FOR 14 DAYS THEN USE TWICE A WEEK FOR 3 MONTHS^Disp: ^Rfl: (Patient not taking: No sig reported) oxybutynin ER (DITROPAN XL) 10 mg 24 hr tablet^Take 1 tablet by mouth twice daily. (Dr Don)^Disp: ^Rfl: (Patient not taking: No sig reported) blood sugar diagnostic (EASY TOUCH TEST STRIP) test strip^Check blood sugars 2x per day and as needed Dx: E11.9 insulin: yes^Disp: 100 Strip^Rfl: 11 (Patient not taking: Reported on 10/17/2022) SUMAtriptan (IMITREX) 50 mg tablet^Take 1 tablet by mouth. at onset of headache. May take another tablet as needed one hour later.^Disp: 10 tablet^Rfl: 5 (Patient not taking: No sig reported) Lancets (ONETOUCH ULTRASOFT LANCETS) lancets^Test blood sugar(s) 2 times daily. Dx: Type 2 DM - Controlled E11.9 , Insulin: Yes^Disp: 100 Each^Rfl: 11 (Patient not taking: Reported on 10/17/2022) Lancets (EASY TOUCH LANCETS) lancets^1 Each twice daily. DX: 250.00 insulin^Disp: 100 Each^Rfl: 11 (Patient not taking: Reported on 10/17/2022) PAST MEDICAL HISTORY Diagnosis Date Acute gastritis without mention of hemorrhage 10/31/2007 Adverse reaction to non-steroidal anti-inflammatory drug (NSAID) 03/28/2010 KATHERIN positive 03/04/2014 Gonzales's esophagus C. difficile diarrhea 10/18/2011 Cataract 04/17/2013 [facility], Dr. Dada Rodríguez. Mild cataract in L eye- no need for cataract surgery at this time. Continue to follow up the cataract. 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 At this time, we anticipate that the patient will be discharged home once clinically stable. Plan: - Discuss needs with patient. - Collaborate with Case management to facilitate DC process - Will continue to evaluate during the post op period. - Desat study 11/14/14: patient will need home oxygen (2 L with exertion only) - Discharge home today with home care for assistance with chest tube to Heimlich. Return to [facility] on Sunday11/18/[address] removal . 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 A face to face encounter was performed during this hospital admission regarding the need for oxygen. The patient verbalized understanding and consents to this therapy. LVATS ODALIS Lobectomy 11/05/2014 74 year old [...] with heimlich -Pain management -Out of bed, cough, deep breathe, acapella, frequent ambulation. -Carb controlled diet . Migraines 11/11/2014 Orthostatic hypotension vasovagal syncope Osteoporosis, unspecified Snoring Tendonitis of ankle, right 05/03/2011 Type II or unspecified type diabetes mellitus without mention of complication, not stated as uncontrolled 02/07/2010 Urge urinary incontinence 12/16/2013 Variants of migraine, not elsewhere classified, without mention of intractable migraine without mention of status migrainosus Social History Tobacco Use Smoking status: Never Smokeless tobacco: Never Substance Use Topics Alcohol use: Yes Comment: 2-3 drinks/years Drug use: No ASSESSMENT/PLAN: 1. Intractable acute post-traumatic headache - ICD9: 339.21, ICD10: G44.311 (primary diagnosis) Resolved. CT head without acute findings. 2. Contusion of right foot, initial encounter - ICD9: 924.20, ICD10: S90.31XA - CONSULT TO PHYSICAL THERAPY - HYDROCODONE 5 MG-ACETAMINOPHEN 325 MG TABLET 3. Contusion of christianity region, initial encounter - ICD9: 920, ICD10: S00.83XA - CONSULT TO PHYSICAL THERAPY - HYDROCODONE 5 MG-ACETAMINOPHEN 325 MG TABLET 4. Injury of coccyx, initial encounter - ICD9: 959.19, ICD10: S39.92XA - CONSULT TO PHYSICAL THERAPY - HYDROCODONE 5 MG-ACETAMINOPHEN 325 MG TABLET 5. Facial pain - ICD9: 784.0, ICD10: R51.9 - CONSULT TO PHYSICAL THERAPY - HYDROCODONE 5 MG-ACETAMINOPHEN 325 MG TABLET 6. Jaw pain - ICD9: 784.92, ICD10: R68.84 - CONSULT TO PHYSICAL THERAPY - HYDROCODONE 5 MG-ACETAMINOPHEN 325 MG TABLET 7. Injury of head, subsequent encounter - ICD9: V58.89, 959.01, ICD10: S09.90XD - CT BRAIN WO IVCON She notes slowly improving. Headache resolved No vision or speech changes noted. Mobility preserved overall. No facial drooping. Notes sleeping a lot but arousable. Improved pain control with Celebrex and Sandwich for breakthrough. [id number]-[id number] constipation remedy advised when taking hydrocodone. She defers physical therapy for now, prefers to see a chiropractor first. ER for any severe or concerning symptoms Clarence Berry APRN.CNS Medical Decision Making: Problems: Moderate: Acute illness with systemic symptoms Risk: Moderate: Drug management Medical Decision Making Level: 4 - Moderate documented in this encounter [facility] 10-11-2022 Miscellaneous Notes Ana Ortega [place]: [id number] - [place] - Rx #: [id number] help? Call us at [facility] [place] Case: [id number], Status: Approved, Coverage Starts on: 08/13/2022 12:00:00 AM, Coverage Ends on: 08/12/2023 12:00:00 AM. Questions? Contact . Pharmacy notified. Ana Ortega ([place]: [id number]) - [id number] HYDROcodone-Acetaminophen 5-325MG tablets Status: PA Request Created: October 10, 2022 [id number] Sent: October 11, 2022 documented in this encounter [facility] 10-10-2022 Note HNO ID: [id number] Author: RT Juan R(R) Service: ? Author Type: Computer Technical Support Specialist Type: Progress Notes Filed: 10/10/2022 2:32 PM Note Text: Radiology Service Progress Note PATIENT NAME: Ana Ortega DATE OF SERVICE: October 10, 2022 TIME: 2:32 PM PATIENT IDENTITY VERIFICATION COMPLETED USING TWO (2) IDENTIFIERS: Name and Date of confirmed by patient verbally. FALL SCREENING: Has the patient had 2 falls in the last year or 1 fall with injury or currently using an Ambulatory Assistive Device (Walker, Cane, Wheelchair, Crutches, etc.)? No PATIENT GENDER DATA: Female. status: : No status: NO. PATIENT RELEVANT IMPLANT DATA REVIEWED: Yes RADIOLOGY DEPARTMENT: CT; Exam(s) Completed: Brain PERIPHERAL IV DATA: Not applicable SIGNED BY: RT Kalpana(R) October 10, 2022 2:32 PM [facility] 10-10-2022 History of Presen t illness Narrative Radiology Service Progress Note PATIENT NAME: Ana Ortega DATE OF SERVICE: October 10, 2022 TIME: 2:32 PM PATIENT IDENTITY VERIFICATION COMPLETED USING TWO (2) IDENTIFIERS: Name and Date of confirmed by patient verbally. FALL SCREENING: Has the patient had 2 falls in the last year or 1 fall with injury or currently using an Ambulatory Assistive Device (Walker, Cane, Wheelchair, Crutches, etc.)? No PATIENT GENDER DATA: Female. status: : No status: NO. PATIENT RELEVANT IMPLANT DATA REVIEWED: Yes RADIOLOGY DEPARTMENT: CT; Exam(s) Completed: Brain PERIPHERAL IV DATA: Not applicable SIGNED BY: RT Kalpana(R) October 10, 2022 2:32 PM documented in this encounter [facility] 10-10-2022 Note HNO ID: [id number] Author: Clarence Berry APRN.ACCOUNTANT BOOKKEEPER Service: ? Author Type: Nurse Specialist Type: Progress Notes Filed: 10/10/2022 10:45 AM Note Text: SUBJECTIVE: BP CONTROLLED (<130/80) due on 04/25/2020 DIABETIC FOOT EXAM due on 03/01/2022 ADVANCE DIRECTIVE DISCUSSION due on 08/13/2022 DEPRESSION ASSESSMENT Never done HPI Ana Ortega is a 82 year old female. 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) Anxiety Esophagitis, Unspecified Ibs (Irritable Bowel Syndrome) Htn (Hypertension) Urge Urinary Incontinence Migraines Recurrent Bronchospasm Carcinoid Bronchial Adenoma (Hcc) History of Cerebral Infarction Intercostal Neuralgia Mouth Dryness Hyperlipidemia Functional Dyspepsia Gonzales's Esophagus Without Dysplasia Gastroesophageal Reflux Disease With Esophagitis Vitamin D Deficiency Temporomandibular Joint Disorder (Tmj) Chronic Cough Neuropathy Seen by Alicia Yun MD 09/30/2022. Presented for routine visit. On arrival indicates she had a fall on stairs, 3 steps. Note hit her body mostly on the wall then fell backwards and hit tailbone on the ledge and hit head on the floor. Notes jaw and christianity hurt. Impression was no sign of fracture or concussion. Advised to treat pain and inflammation with naproxen, hydrocodone for breakthrough pain. She was treated with hydrocodone. Ana Ortega presents to follow up after her fall September 28, 2022. Today reports she continues to have a mild right-sided headache which is constant, aching and persisting since the fall unabated. Notes fatigue, sleeping a lot but is arousable. She notes pain on the right side of her face, right shoulder, low back tailbone and left knee. She reports no current vision changes, seen by her eye doctor since last year with a normal exam reported. No speech difficulties. No facial droop. Pain with mobility but able to move arms and legs normally. She notes not taking naproxen or Tylenol currently. Has used Sandwich intermittently which has helped with pain. She notes using a donut for pressure relief in the tailbone area. Review of Systems Constitutional: Positive for fatigue. Respiratory: Negative. Cardiovascular: Negative. Musculoskeletal: Positive for arthralgias, back pain and myalgias. Neurological: Positive for headaches. Negative for tremors, seizures, syncope, speech difficulty, weakness and numbness. Psychiatric/Behavioral: Negative for confusion. Objective BP 136/88 Pulse 72 Resp 16 Wt 71.7 kg (158 lb) SpO2 98% BMI 28.90 kg/m? Physical Exam Vitals and nursing note reviewed. Constitutional: General: She is not in acute distress. Appearance: Normal appearance. She is not ill-appearing or diaphoretic. HENT: Head: Normocephalic. Eyes: General: Lids are normal. Conjunctiva/sclera: Conjunctivae normal. Left eye: No hemorrhage. Cardiovascular: Rate and Rhythm: Normal rate and regular rhythm. Heart sounds: Normal heart sounds. Pulmonary: Effort: Pulmonary effort is normal. Breath sounds: Normal breath sounds. Abdominal: General: Bowel sounds are normal. Palpations: Abdomen is soft. Musculoskeletal: Comments: Tenderness to palpation of right side of face, right neck and shoulder, low back, left knee. Ecchymosis present left knee. Skin: General: Skin is warm and dry. Neurological: General: No focal deficit present. Mental Status: She is alert and oriented to person, place, and time. Cranial Nerves: No cranial nerve deficit, dysarthria or facial asymmetry. Sensory: Sensation is intact. No sensory deficit. Motor: No weakness. Coordination: Agmqqz-Yqos-Xeqgnl Test normal. Gait: Gait normal. ALLERGIES Allergen Reactions Adhesive Tape (Chapis* Hives Rash around bandaid never been tested for latex allergy Aspirin Contraindication-Medical Surgical GI bleed Boniva [Ibandronate] GI Upset Esophageal burning Carafate [Sucralfat* Other: See Comments feels poorly Ciprofloxacin Other: See Comments photosensitivity, dermatitis Codeine GI Upset Ibuprofen GI Upset Iodine Vomiting Lansoprazole Diarrhea Macrobid [Nitrofura* GI Upset, Anaphylaxis Headache, nausea, stomach pain Metformin Diarrhea Neosporin [Neomycin* Rash blisters Protonix [Pantopraz* Diarrhea Relafen [Nabumetone] GI Upset, Vomiting Shrimp GI Upset Actos [Pioglitazone* Swelling HYDROcodone-acetaminophen (NORCO) 5-325 mg per tabletTake 1 tablet by mouth twice daily as needed for pain for up to 7 days.Disp: 14 tabletRfl: 0 celecoxib (CELEBREX) 200 mg capsuleTake 1 capsule by mouth once daily. Take with foodDisp: 30 capsuleRfl: 5 LORazepam (ATIVA (more content not included)... [facility] 10-10-2022 History of Presen t illness Narrative SUBJECTIVE: BP CONTROLLED (<130/80) due on 04/25/2020 DIABETIC FOOT EXAM due on 03/01/2022 ADVANCE DIRECTIVE DISCUSSION due on 08/13/2022 DEPRESSION ASSESSMENT Never done HPI Ana Ortega is a 82 year old female. 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 Presented for routine visit. On arrival indicates she had a fall on stairs, 3 steps. Note hit her body mostly on the wall then fell backwards and hit tailbone on the ledge and hit head on the floor. Notes jaw and christianity hurt. Impression was no sign of fracture or concussion. Advised to treat pain and inflammation with naproxen, hydrocodone for breakthrough pain. She was treated with hydrocodone. Ana Ortega presents to follow up after her fall September 28, 2022. Today reports she continues to have a mild right-sided headache which is constant, aching and persisting since the fall unabated. Notes fatigue, sleeping a lot but is arousable. She notes pain on the right side of her face, right shoulder, low back tailbone and left knee. She reports no current vision changes, seen by her eye doctor since last year with a normal exam reported. No speech difficulties. No facial droop. Pain with mobility but able to move arms and legs normally. She notes not taking naproxen or Tylenol currently. Has used Sandwich intermittently which has helped with pain. She notes using a donut for pressure relief in the tailbone area. Review of Systems Constitutional: Positive for fatigue. Respiratory: Negative. Cardiovascular: Negative. Musculoskeletal: Positive for arthralgias, back pain and myalgias. Neurological: Positive for headaches. Negative for tremors, seizures, syncope, speech difficulty, weakness and numbness. Psychiatric/Behavioral: Negative for confusion. Objective BP 136/88 Pulse 72 Resp 16 Wt 71.7 kg (158 lb) SpO2 98% BMI 28.90 kg/m Physical Exam Vitals and nursing note reviewed. Constitutional: General: She is not in acute distress. Appearance: Normal appearance. She is not ill-appearing or diaphoretic. HENT: Head: Normocephalic. Eyes: General: Lids are normal. Conjunctiva/sclera: Conjunctivae normal. Left eye: No hemorrhage. Cardiovascular: Rate and Rhythm: Normal rate and regular rhythm. Heart sounds: Normal heart sounds. Pulmonary: Effort: Pulmonary effort is normal. Breath sounds: Normal breath sounds. Abdominal: General: Bowel sounds are normal. Palpations: Abdomen is soft. Musculoskeletal: Comments: Tenderness to palpation of right side of face, right neck and shoulder, low back, left knee. Ecchymosis present left knee. Skin: General: Skin is warm and dry. Neurological: General: No focal deficit present. Mental Status: She is alert and oriented to person, place, and time. Cranial Nerves: No cranial nerve deficit, dysarthria or facial asymmetry. Sensory: Sensation is intact. No sensory deficit. Motor: No weakness. Coordination: Eemxbg-Uazq-Speowa Test normal. Gait: Gait normal. ALLERGIES Allergen Reactions Adhesive Tape (Chapis* Hives Rash around bandaid never been tested for latex allergy Aspirin Contraindication-Medical Surgical GI bleed Boniva [Ibandronate] GI Upset Esophageal burning Carafate [Sucralfat* Other: See Comments feels poorly Ciprofloxacin Other: See Comments photosensitivity, dermatitis Codeine GI Upset Ibuprofen GI Upset Iodine Vomiting Lansoprazole Diarrhea Macrobid [Nitrofura* GI Upset, Anaphylaxis Headache, nausea, stomach pain Metformin Diarrhea Neosporin [Neomycin* Rash blisters Protonix [Pantopraz* Diarrhea Relafen [Nabumetone] GI Upset, Vomiting Shrimp GI Upset Actos [Pioglitazone* Swelling HYDROcodone-acetaminophen (NORCO) 5-325 mg per tablet^Take 1 tablet by mouth twice daily as needed for pain for up to 7 days.^Disp: 14 tablet^Rfl: 0 celecoxib (CELEBREX) 200 mg capsule^Take 1 capsule by mouth once daily. Take with food^Disp: 30 capsule^Rfl: 5 LORazepam (ATIVAN) 1 mg tablet^TAKE 1/2 TO 1 TABLET BY MOUTH EVERY DAY NEEDED FOR FOR ANXIETY^Disp: 30 tablet^Rfl: 2 [START ON 10/25/2022] rosuvastatin (CRESTOR) 10 mg tablet^Take 1 tablet by mouth daily at bedtime. As directed^Disp: 90 tablet^Rfl: 3 insulin glargine (LANTUS SOLOSTAR U-100 INSULIN) 100 unit/mL (3 mL)^Inject 14 Units subcutaneously daily at bedtime. (Dr. Genny Munguia refills)^Disp: ^Rfl: insulin aspart U-100 (NOVOLOG FLEXPEN U-100 INSULIN) 100 unit/mL (3 mL)^Inject 25 Units subcutaneously daily with breakfast AND 25 Units daily with lunch AND 25 Units daily with dinner. Adjust as directed. (Dr. Genny Munguia refills) Also has SSI.^Disp: ^Rfl: sertraline (ZOLOFT) 50 mg tablet^Take 1 tablet by mouth once daily.^Disp: 90 tablet^Rfl: 3 Insulin [place], Disposable, (BD ULTRA-FINE FOZIA PEN NEEDLE) 32 gauge x ^Use one needle for each dose, 4 times daily. Dx: Type 2 DM - Controlled E11.9^Disp: 100 Each^Rfl: 11 gabapentin (NEURONTIN) 300 mg capsule^Take 1 capsule by mouth twice daily for 180 days. Morning and bedtime^Disp: 180 capsule^Rfl: 1 metoprolol succinate ER (TOPROL XL) 200 mg 24 hr tablet^Take 1 tablet by mouth once daily.^Disp: 90 tablet^Rfl: 3 vibegron (GEMTESA) 75 mg tablet^Take 75 mg by mouth once daily.^Disp: ^Rfl: (Patient not taking: Reported on 05/02/2022) furosemide (LASIX) 20 mg tablet^Take 1 tablet by mouth once daily. As directed for leg swelling^Disp: 30 tablet^Rfl: 1 VENTOLIN HFA 90 mcg/actuation inhaler^INHALE 2 PUFFS BY MOUTH EVERY 6 HOURS NEEDED FOR SHORTNESS OF BREATH/WHEEZING^Disp: ^Rfl: Acidophilus-Bif Animalis 10 billion cell cap^Take 1 capsule by mouth once daily.^Disp: 90 capsule^Rfl: 3 fexofenadine (JORDIN) 180 mg tablet^Take 1 tablet by mouth once daily. As directed for allergies^Disp: ^Rfl: esomeprazole (NEXIUM) 40 mg capsule^Take 1 capsule by mouth DAILY (6 AM).^Disp: 90 capsule^Rfl: 3 TOVIAZ 4 mg Tb24 extended release tablet^Take 4 mg by mouth once daily. For 30 days^Disp: ^Rfl: multivitamin-folic acid-biotin (XJTR-DMJN-BSSSQ, LG-HJ-FQBJKD,) 400-2,000 mcg tab^Take by mouth.^Disp: ^Rfl: CRANBERRY^ ^Disp: ^Rfl: collagen, bovine, 100 % powd^Apply to affected area.^Disp: ^Rfl: Insulin [place], Disposable, (EASY TOUCH) 31 gauge x 16 ^Use 1 needle for each dose. 4x daily^Disp: 360 Each^Rfl: 3 Lancets lancets^Micro-lancets to work with current meter - One touch. Sig: Test blood sugar(s) 2 times daily. Dx: Type 2 DM - Controlled E11.9 , Insulin: Yes^Disp: 100 Each^Rfl: 11 ketoconazole (NIZORAL) 2 % cream^Apply 1 application to affected area twice daily. Continue for 1 week after rash resolves.^Disp: 30 g^Rfl: 0 Cranberry-Vitamin C-Vitamin E (CRANBERRY PLUS VITAMIN C) 140-100 mg cap^Patient takes Cranberry with Vitamin C capsule that contains 15,000 mg Cranberry and 100mg Vitamin C^Disp: ^Rfl: Biotin 2,500 mcg cap^Nurse reports patient taking 1500 mcg dose once daily (cannot find 1500mcg dose on menu)^Disp: ^Rfl: mirabegron (MYRBETRIQ) 50 mg Tb24^Take 1 tablet by mouth twice daily.^Disp: ^Rfl: (Patient not taking: No sig reported) PREMARIN vaginal cream^APPLY 0.5 GRAMS VAGINALLY BEFORE BED EVERY NIGHT FOR 14 DAYS THEN USE TWICE A WEEK FOR 3 MONTHS^Disp: ^Rfl: (Patient not taking: No sig reported) oxybutynin ER (DITROPAN XL) 10 mg 24 hr tablet^Take 1 tablet by mouth twice daily. (Dr Don)^Disp: ^Rfl: (Patient not taking: No sig reported) Miscellaneous Medical Supply misc^[employer] (E08.40, Z79.4) 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, with long-term current use of insulin^Disp: 2 Each^Rfl: 0 blood sugar diagnostic (EASY TOUCH TEST STRIP) test strip^Check blood sugars 2x per day and as needed Dx: E11.9 insulin: yes^Disp: 100 Strip^Rfl: 11 vit C/E/Zn/coppr/lutein/zeaxan (PRESERVISION AREDS-2 ORAL)^Take by mouth twice daily.^Disp: ^Rfl: Cholecalciferol, Vitamin D3, 1,000 unit cap^Take 2 capsules by mouth once daily.^Disp: ^Rfl: 0 SUMAtriptan (IMITREX) 50 mg tablet^Take 1 tablet by mouth. at onset of headache. May take another tablet as needed one hour later.^Disp: 10 tablet^Rfl: 5 (Patient not taking: Reported on 05/02/2022) COMPOUNDED PRESCRIPTION^Custom orthotics (E08.40, Z79.4) 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, with long-term current use of insulin^Disp: 2 Each^Rfl: 0 Lancets (ONETOUCH ULTRASOFT LANCETS) lancets^Test blood sugar(s) 2 times daily. Dx: Type 2 DM - Controlled E11.9 , Insulin: Yes^Disp: 100 Each^Rfl: 11 Lancets (EASY TOUCH LANCETS) lancets^1 Each twice daily. DX: 250.00 insulin^Disp: 100 Each^Rfl: 11 multivitamins(DAILY MULTIVITAMIN TAB)^Take one(1) tablet daily.^Disp: ^Rfl: 0 PAST MEDICAL HISTORY Diagnosis Date Acute gastritis without mention of hemorrhage 10/31/2007 Adverse reaction to non-steroidal anti-inflammatory drug (NSAID) 03/28/2010 KATHERIN positive 03/04/2014 Gonzales's esophagus C. difficile diarrhea 10/18/2011 Cataract 04/17/2013 [facility], Dr. Dada Rodríguez. Mild cataract in L eye- no need for cataract surgery at this time. Continue to follow up the cataract. 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 At this time, we anticipate that the patient will be discharged home once clinically stable. Plan: - Discuss needs with patient. - Collaborate with Case management to facilitate DC process - Will continue to evaluate during the post op period. - Desat study 11/14/14: patient will need home oxygen (2 L with exertion only) - Discharge home today with home care for assistance with chest tube to [facility]. Return [facility] on Sunday11/18/[address] removal . 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 A face to face encounter was performed during this hospital admission regarding the need for oxygen. The patient verbalized understanding and consents to this therapy. LVATS ODALIS Lobectomy 11/05/2014 74 year old [...] with heimlich -Pain management -Out of bed, cough, deep breathe, acapella, frequent ambulation. -Carb controlled diet . Migraines 11/11/2014 Orthostatic hypotension vasovagal syncope Osteoporosis, unspecified Snoring Tendonitis of ankle, right 05/03/2011 Type II or unspecified type diabetes mellitus without mention of complication, not stated as uncontrolled 02/07/2010 Urge urinary incontinence 12/16/2013 Variants of migraine, not elsewhere classified, without mention of intractable migraine without mention of status migrainosus Social History Tobacco Use Smoking status: Never Smokeless tobacco: Never Substance Use Topics Alcohol use: Yes Comment: 2-3 drinks/years Drug use: No ASSESSMENT/PLAN: 1. Intractable acute post-traumatic headache - ICD9: 339.21, ICD10: G44.311 (primary diagnosis) 2. Contusion of right foot, initial encounter - ICD9: 924.20, ICD10: S90.31XA - CONSULT TO PHYSICAL THERAPY - HYDROCODONE 5 MG-ACETAMINOPHEN 325 MG TABLET 3. Contusion of christianity region, initial encounter - ICD9: 920, ICD10: S00.83XA - CONSULT TO PHYSICAL THERAPY - HYDROCODONE 5 MG-ACETAMINOPHEN 325 MG TABLET 4. Injury of coccyx, initial encounter - ICD9: 959.19, ICD10: S39.92XA - CONSULT TO PHYSICAL THERAPY - HYDROCODONE 5 MG-ACETAMINOPHEN 325 MG TABLET 5. Facial pain - ICD9: 784.0, ICD10: R51.9 - CONSULT TO PHYSICAL THERAPY - HYDROCODONE 5 MG-ACETAMINOPHEN 325 MG TABLET 6. Jaw pain - ICD9: 784.92, ICD10: R68.84 - CONSULT TO PHYSICAL THERAPY - HYDROCODONE 5 MG-ACETAMINOPHEN 325 MG TABLET 7. Injury of head, subsequent encounter - ICD9: V58.89, 959.01, ICD10: S09.90XD - CT BRAIN WO IVCON She notes intractable right-sided headache since her fall. No vision or speech changes noted. Mobility preserved overall. No facial drooping. Notes sleeping a lot but arousable. Not currently taking medication for pain. Endorsed trial of Celebrex. Hydrocodone as needed for breakthrough pain and at bedtime. Lcun-nyf-tfqhqgn constipation remedy advised when taking hydrocodone. ER for any severe or concerning symptoms Clarence Berry APRN.CNS Medical Decision Making: Problems: Moderate: Acute illness with systemic symptoms Data: Unique test(s) ordered: 1 Risk: Moderate: Drug management Medical Decision Making Level: 4 - Moderate documented in this encounter [facility] 09-30-2022 Note HNO ID: [id number] Author: Alicia Yun MD Service: ? Author Type: Physician Type: Progress Notes Filed: 09/30/2022 3:06 PM Note Text: This note was created using [employer]. Subjective Ana Ortega is a 82 year old female. Patient presents with: Recheck: 4 month follow up SUBJECTIVE: Ana Ortega is a 82 year old year old lady here today for 4 month follow up appointment for review of medical conditions. Noted had fall. Was feeling pretty good but fell Thday so is really sore. Was in basement going up 3 steps before gets to steps where wall and handrail area--missed the handrail and fell backwards. Hit right of body mostly on the wall first then kept falling backwards and hit tailbone on ledge at side of stairs and hit head on the floor. Right side of jaw hurts and christianity. Hurts a little to chew. Better today than yesterday. Tailbone really hurts. Knee hurts and foot swollen and black and blue on plantar side of foot. Hurts to walk with shoes but walks well on carpet. Currently taking tablet for Vitamin D--?dose. Taking 1 every other day. Sugars are overall okay. Drinks something with sugar to get sugar up before bedtime since down to 68 at night. Lantus is 14 at HS. AM sugar is 210 right now. Was 190 to start. PAST MEDICAL HISTORY Diagnosis Date Acute gastritis without mention of hemorrhage 10/31/2007 Adverse reaction to non-steroidal anti-inflammatory drug (NSAID) 03/28/2010 KATHERIN positive 03/04/2014 Gonzales's esophagus C. difficile diarrhea 10/18/2011 Cataract 04/17/2013 [facility], Dr. Dada Rodríguez. Mild cataract in L eye- no need for cataract surgery at this time. Continue to follow up the cataract. 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 At this time, we anticipate that the patient will be discharged home once clinically stable. Plan: - Discuss needs with patient. - Collaborate with Case management to facilitate DC process - Will continue to evaluate during the post op period. - Desat study 11/14/14: patient will need home oxygen (2 L with exertion only) - Discharge home today with home care for assistance with chest tube to Heimlich. [facility] removal . 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 A face to face encounter was performed during this hospital admission regarding the need for oxygen. The patient verbalized understanding and consents to this therapy. LVATS ODALIS Lobectomy 11/05/2014 74 year old [...] with heimlich -Pain management -Out of bed, cough, deep breathe, acapella, frequent ambulation. -Carb controlled diet . Migraines 11/11/2014 Orthostatic hypotension vasovagal syncope Osteoporosis, unspecified Snoring Tendonitis of ankle, right 05/03/2011 Type II or unspecified type diabetes mellitus without mention of complication, not stated as uncontrolled 02/07/2010 Urge urinary incontinence 12/16/2013 Variants of migraine, not elsewhere classified, without mention of intractable migraine without mention of status migrainosus Current Outpatient Medications Medication Sig sertraline (ZOLOFT) 50 mg tablet Take 1 tablet by mouth once daily. rosuvastatin (CRESTOR) 5 mg tablet Take 1 tablet by mouth daily at bedtime. As directed Insulin [place], Disposable, (BD ULTRA-FINE FOZIA PEN NEEDLE) 32 gauge x Use one needle for each dose, 4 times daily. Dx: Type 2 DM - Controlled E11.9 gabapentin (NEURONTIN) 300 mg capsule Take 1 capsule by mouth twice daily for 180 days. Morning and bedtime metoprolol succinate ER (TOPROL XL) 200 mg 24 hr tablet Take 1 tablet by mouth once daily. LORazepam (ATIVAN) 1 mg tablet TAKE 1/2 TO 1 TABLET BY MOUTH EVERY DAY NEEDED FOR FOR ANXIETY vibegron (GEMTESA) 75 mg tablet Take 75 mg by mouth once daily. (Patient not taking: Reported on 05/02/2022) furosemide (LASIX) 20 mg tablet Take 1 tablet by mouth once daily. As directed for leg swelling VENTOLIN HFA 90 mcg/actuation inhaler INHALE 2 PUFFS BY MOUTH EVERY 6 HOURS NEEDED FOR SHORTNESS OF BREATH/WHEEZI (more content not included)... [facility] 09-30-2022 Instructions Alicia Yun MD - 09/30/2022 10:36 AM EST Decrease supper time insulin since having lows under 70--try decreasing to 20 units then titrate back up if sugar going over 180 at bedtime. Goal in AM is sugar under 150. Nonfasting sugars--under 180 documented in this encounter [facility] 09-30-2022 History of Presen t illness Narrative Images from the original note were not included. This note was created using [employer]. Subjective Ana Ortega is a 82 year old female. Patient presents with: Recheck: 4 month follow up SUBJECTIVE: Ana Ortega is a 82 year old year old lady here today for 4 month follow up appointment for review of medical conditions. Noted had fall. Was feeling pretty good but fell so is really sore. Was in basement going up 3 steps before gets to steps where wall and handrail area--missed the handrail and fell backwards. Hit right of body mostly on the wall first then kept falling backwards and hit tailbone on ledge at side of stairs and hit head on the floor. Right side of jaw hurts and christianity. Hurts a little to chew. Better today than yesterday. Tailbone really hurts. Knee hurts and foot swollen and black and blue on plantar side of foot. Hurts to walk with shoes but walks well on carpet. Currently taking tablet for Vitamin D--?dose. Taking 1 every other day. Sugars are overall okay. Drinks something with sugar to get sugar up before bedtime since down to 68 at night. Lantus is 14 at HS. AM sugar is 210 right now. Was 190 to start. PAST MEDICAL HISTORY Diagnosis Date Acute gastritis without mention of hemorrhage 10/31/2007 Adverse reaction to non-steroidal anti-inflammatory drug (NSAID) 03/28/2010 KATHERIN positive 03/04/2014 Gonzales's esophagus C. difficile diarrhea 10/18/2011 Cataract 04/17/2013 [facility], Dr. Dada Rodríguez. Mild cataract in L eye- no need for cataract surgery at this time. Continue to follow up the cataract. 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 At this time, we anticipate that the patient will be discharged home once clinically stable. Plan: - Discuss needs with patient. - Collaborate with Case management to facilitate DC process - Will continue to evaluate during the post op period. - Desat study 11/14/14: patient will need home oxygen (2 L with exertion only) - Discharge home today with home care for assistance with chest tube to [facility]. Return [facility] on Sunday11/18/[address] removal . 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 A face to face encounter was performed during this hospital admission regarding the need for oxygen. The patient verbalized understanding and consents to this therapy. LVATS ODALIS Lobectomy 11/05/2014 74 year old [...] with heimlich -Pain management -Out of bed, cough, deep breathe, acapella, frequent ambulation. -Carb controlled diet . Migraines 11/11/2014 Orthostatic hypotension vasovagal syncope Osteoporosis, unspecified Snoring Tendonitis of ankle, right 05/03/2011 Type II or unspecified type diabetes mellitus without mention of complication, not stated as uncontrolled 02/07/2010 Urge urinary incontinence 12/16/2013 Variants of migraine, not elsewhere classified, without mention of intractable migraine without mention of status migrainosus Current Outpatient Medications Medication Sig sertraline (ZOLOFT) 50 mg tablet Take 1 tablet by mouth once daily. rosuvastatin (CRESTOR) 5 mg tablet Take 1 tablet by mouth daily at bedtime. As directed Insulin [place], Disposable, (BD ULTRA-FINE FOZIA PEN NEEDLE) 32 gauge x Use one needle for each dose, 4 times daily. Dx: Type 2 DM - Controlled E11.9 gabapentin (NEURONTIN) 300 mg capsule Take 1 capsule by mouth twice daily for 180 days. Morning and bedtime metoprolol succinate ER (TOPROL XL) 200 mg 24 hr tablet Take 1 tablet by mouth once daily. LORazepam (ATIVAN) 1 mg tablet TAKE 1/2 TO 1 TABLET BY MOUTH EVERY DAY NEEDED FOR FOR ANXIETY vibegron (GEMTESA) 75 mg tablet Take 75 mg by mouth once daily. (Patient not taking: Reported on 05/02/2022) furosemide (LASIX) 20 mg tablet Take 1 tablet by mouth once daily. As directed for leg swelling VENTOLIN HFA 90 mcg/actuation inhaler INHALE 2 PUFFS BY MOUTH EVERY 6 HOURS NEEDED FOR SHORTNESS OF BREATH/WHEEZING Acidophilus-Bif Animalis 10 billion cell cap Take 1 capsule by mouth once daily. fexofenadine (JORDIN) 180 mg tablet Take 1 tablet by mouth once daily. As directed for allergies esomeprazole (NEXIUM) 40 mg capsule Take 1 capsule by mouth DAILY (6 AM). insulin aspart U-100 (NOVOLOG FLEXPEN U-100 INSULIN) 100 unit/mL (3 mL) Inject 12 Units subcutaneously daily with breakfast AND 10 Units daily with lunch AND 12 Units daily with dinner. Adjust as directed. (Dr. Genny funes). TOVIAZ 4 mg Tb24 extended release tablet Take 4 mg by mouth once daily. For 30 days multivitamin-folic acid-biotin (UCSG-GDSR-CXMRP, JX-MH-LPDGPU,) 400-2,000 mcg tab Take by mouth. CRANBERRY collagen, bovine, 100 % powd Apply to affected area. insulin glargine (LANTUS SOLOSTAR U-100 INSULIN) 100 unit/mL (3 mL) Inject 18 Units subcutaneously daily at bedtime. (Dr. Genny funes) (Patient taking differently: Inject 20 Units subcutaneously daily at bedtime. (Dr. Genny funes)) Insulin [place], Disposable, (EASY TOUCH) 31 gauge x 3/16 Use 1 needle for each dose. 4x daily Lancets lancets Micro-lancets to work with current meter - One touch. Sig: Test blood sugar(s) 2 times daily. Dx: Type 2 DM - Controlled E11.9 , Insulin: Yes ketoconazole (NIZORAL) 2 % cream Apply 1 application to affected area twice daily. Continue for 1 week after rash resolves. Cranberry-Vitamin C-Vitamin E (CRANBERRY PLUS VITAMIN C) 140-100 mg cap Patient takes Cranberry with Vitamin C capsule that contains 15,000 mg Cranberry and 100mg Vitamin C Biotin 2,500 mcg cap Nurse reports patient taking 1500 mcg dose once daily (cannot find 1500mcg dose on menu) mirabegron (MYRBETRIQ) 50 mg Tb24 Take 1 tablet by mouth twice daily. (Patient not taking: No sig reported) PREMARIN vaginal cream APPLY 0.5 GRAMS VAGINALLY BEFORE BED EVERY NIGHT FOR 14 DAYS THEN USE TWICE A WEEK FOR 3 MONTHS (Patient not taking: No sig reported) oxybutynin ER (DITROPAN XL) 10 mg 24 hr tablet Take 1 tablet by mouth twice daily. (Dr Don) (Patient not taking: No sig reported) Miscellaneous Medical [facility] [employer] Orth[employer] (E08.40, Z79.4) 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, with long-term current use of insulin blood sugar diagnostic (EASY TOUCH TEST STRIP) [...] hour later. (Patient not taking: Reported on 05/02/2022) COMPOUNDED PRESCRIPTION Custom orthotics (E08.40, Z79.4) 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, with long-term current use of insulin Lancets (ONETOUCH ULTRASOFT LANCETS) lancets Test blood sugar(s) 2 times daily. Dx: Type 2 DM - Controlled E11.9 , Insulin: Yes Lancets (EASY TOUCH LANCETS) lancets 1 Each twice daily. DX: 250.00 insulin multivitamins(DAILY MULTIVITAMIN TAB) Take one(1) tablet daily. Current Facility-Administered Medications Medication Dose Route Frequency perflutren lipid microspheres 1.3 mL in NaCl (PF) 0.9% 10 mL injection (DEFINITY) INTRAVENOUS DIRECTED PRN sodium chloride 0.9 % (flush) 10 mL (BD POSIFLUSH) 10 mL INTRAVENOUS DIRECTED PRN Review of Systems Objective BP 158/82 Pulse 84 Resp 16 Wt 71.7 kg (158 lb) BMI 28.90 kg/m Physical Exam Constitutional: Appearance: Normal appearance. HENT: Head: Normocephalic. Jaw: Tenderness (right side but good ROM) present. Comments: Tenderness and swelling right temporal and frontal area but not black and blue Right Ear: External ear normal. Eyes: Conjunctiva/sclera: Conjunctivae normal. Cardiovascular: Rate and Rhythm: Normal rate and regular rhythm. Heart sounds: Normal heart sounds. Pulmonary: Effort: Pulmonary effort is normal. Breath sounds: Normal breath sounds. Chest: Comments: Tender right posterolateral ribs Musculoskeletal: Right shoulder: Normal range of motion. Left shoulder: Normal range of motion. Feet: Skin: General: Skin is warm and dry. Neurological: General: No focal deficit present. Mental Status: She is alert and oriented to person, place, and time. Psychiatric: Mood and Affect: Mood normal. Behavior: Behavior normal. Thought Content: Thought content normal. Judgment: Judgment normal. Component Latest Ref Rng & Units 03/29/2021 03/27/2022 08/02/2022 Protein, Total 6.3 - 8.0 g/dL 6.6 6.8 Albumin 3.9 - 4.9 g/dL 4.1 4.3 Calcium 8.5 - 10.2 mg/dL 8.6 8.4 (L) 8.8 Bilirubin, Total 0.2 - 1.3 mg/dL 0.3 0.4 Alkaline Phosphatase 34 - 123 U/L 104 94 AST 13 - 35 U/L 16 19 ALT 7 - 38 U/L 13 17 Glucose 74 - 99 mg/dL 200 (H) 240 (H) 232 (H) BUN 7 - 21 mg/dL 11 15 17 Creatinine 0.58 - 0.96 mg/dL 0.62 0.74 0.69 Sodium 136 - 144 mmol/L 139 137 142 Potassium 3.7 - 5.1 mmol/L 3.8 4.2 4.1 Chloride 97 - 105 mmol/L 106 (H) 104 104 CO2 22 - 30 mmol/L 26 22 26 Anion Gap 9 - 18 mmol/L 7 (L) 11 12 eGFR >=60 mL/min/1.73m 82 88 eGFR- >60 eGFR-All Other Races . >60 WBC 3.70 - 11.00 k/uL 6.90 7.40 RBC 3.90 - 5.20 m/uL 4.17 4.13 Hemoglobin 11.5 - 15.5 g/dL 12.7 12.9 Hematocrit 36.0 - 46.0 % 37.2 37.8 MCV 80.0 - 100.0 fL 89.2 91.5 MCH 26.0 - 34.0 pg 30.5 31.2 MCHC 30.5 - 36.0 g/dL 34.1 34.1 RDW-CV 11.5 - 15.0 % 13.5 13.7 Platelet Count 150 - 400 k/uL 221 230 MPV 9.0 - 12.7 fL 9.8 9.8 Absolute nRBC <0.01 k/uL <0.01 <0.01 Cholesterol, Total <200 mg/dL 222 (H) Triglyceride <150 mg/dL 207 (H) HDL Cholesterol >39 mg/dL 43 Non HDL Cholesterol <130 mg/dL 179 (H) Fasting Time hrs 10 VLDL Cholesterol <30 mg/dL 41 (H) TC:HDL Ratio <5.10 5.16 (H) LDL Cholesterol <100 mg/dL 138 (H) LDL:HDL Ratio <2.54 3.21 (H) Creatinine, Ur Random (UCRR) 20.0 - 300.0 mg/dL 202.9 Albumin, Urine Random mg/L 19.5 Albumin/Creat Ratio <30 mg/g 10 Hemoglobin A1C 4.3 - 5.6 % 8.0 (H) 7.7 (H) 7.7 (H) Estimated Average Glucose mg/dL 183 174 174 Vitamin D 25 Hydroxy 31.0 - 80.0 ng/mL 51.4 59.5 Vitamin B12 232 - 1,245 pg/mL 989 Vitamin B6, Plasma 20.0 - 125.0 nmol/L 12.7 (L) 112.4 Magnesium 1.7 - 2.3 mg/dL 1.7 Assessment and Plan Encounter Diagnosis ICD-10-CM 1. 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, with long-term current use of insulin ([facility]) E08.40 Z79.4 2. Contusion of right foot, initial encounter S90.31XA HYDROcodone-acetaminophen (NORCO) 5-325 mg per tablet plantar toes 3. Contusion of christianity region, initial encounter S00.83XA HYDROcodone-acetaminophen (NORCO) 5-325 mg per tablet Head and jaw hurt 4. Injury of coccyx, initial encounter S39.92XA HYDROcodone-acetaminophen (NORCO) 5-325 mg per tablet 5. Facial pain R51.9 HYDROcodone-acetaminophen (NORCO) 5-325 mg per tablet 6. Jaw pain R68.84 HYDROcodone-acetaminophen (NORCO) 5-325 mg per tablet 7. Anxiety F41.9 LORazepam (ATIVAN) 1 mg tablet 8. Vitamin D deficiency E55.9 Above issues addressed with patient and . Patient involved in shared decision making for management of medical issues. Here for follow up appointment but also had pain from falling on the steps at home when missed the handrail. No signs of fractures or concussion. Treating pain and inflammation with naproxen. More severe pain treated with hydrocodone. Has tolerated in the past without adverse effects. Further evaluation and treatment as indicated. Stable with control of anxiety. Does not need lorazepam every day. At this time benefits outweigh risks. Continue to monitor for adverse effects and indications for decreasing dose or tapering off. No signs of diversion or abuse of medication(s); no adverse effects. Continue present management. History and medications reviewed. Epic updated as needed Refills and/or prescriptions taken care of and meds adjusted as indicated after reviewed history, exam and labs. Health Maintenance reviewed. Updated record and/or ordered tests as recorded. Encouraged on efforts at healthy diet and regular exercise and adequate sleep. DM controlled. Continue present management. I spent a total of 52 minutes on the date of the service which included [id number] patient care, completing clinical documentation, obtaining and/or reviewing separately obtained history, performing a medically appropriate examination, counseling and educating the patient/family/caregiver, ordering medications, tests, or procedures, and communicating results to the patient/family/caregiver. Alicia Yun MD documented in this encounter [facility] 08-21-2022 Miscellaneous Notes Patient notified of below results/recommendations, verbalized understanding. Patient is not taking Crestor every evening, reviewed dosage instructions with Patient, she will check to see if she needs a refill & call if needed;. Juana Muro LPN ----- Message from Alicia Yun MD sent at 08/20/2022 11:17 PM EST ----- Vitamin B6 improved to normal range. Continue supplement. HgA1C still with fair control at 7.7 Metabolic panel except for glucose high at 232. Lipids not as well controlled with LDL at 138--was under 100 before. And Triglycerides up from 160 to 207. Would see if still taking Crestor. Rest of labs fine. Get lipids and BMP and HgA1C before next appointment. documented in this encounter [facility] 08-02-2022 Miscellaneous Notes Filed order Patient is at [facility] today requesting lab orders. Lab is stating they are not able to pull these order until NEXT July. Please review and file. documented in this encounter [facility] 06-28-2022 Miscellaneous Notes Spoke with pt and information listed below given. Pt verbalizes understanding. Chelsy Valverde LPN The following approved medication requests have been transmitted electronically. Requested Prescriptions Signed Prescriptions Disp Refills gabapentin (NEURONTIN) 300 mg capsule 180 capsule 1 Sig: Take 1 capsule by mouth twice daily for 180 days. Morning and bedtime Authorizing Provider: ALICIA YUN MD Below noted. Lyrica taken off medlist Patient asking for the status of her request for medication gabapentin. Patient wanting this medication sent to [facility] in [place]. Please call patient when complete. Patient is requesting to go back on the Gabapentin rather then refill the lyrica. She states she was on the lyrica for some time switched to the gabapentin and then back to the lyrica but feels gabapentin does better. She uses [facility] in [place]. documented in this encounter [facility] 06-16-2022 Miscellaneous Notes Faxed ECHO results to Dr. Bran, [facility] Pulm ([phone]), and Dr. Munguia, [facility] Endo ([phone]) per patient request. documented in this encounter [facility] 06-16-2022 Miscellaneous Notes Patient has been identified by name and date of : Yes Patient phones for refill(s): Requested Prescriptions Pending Prescriptions Disp Refills metoprolol succinate ER (TOPROL XL) 200 mg 24 hr tablet 90 tablet 3 Sig: Take 1 tablet by mouth once daily. Date of last office visit with pcp: 05-02-22. Next appt: 08-04-22. Last 2 Encounter Wt Readings: Date: Wt: 05/16/2022 71.2 kg (157 lb) 05/02/2022 71.7 kg (158 lb) Previous labs/tests for medication: Blood Pressure: BUN (mg/dL) Date Value 03/27/2022 15 03/29/2021 11 Sodium (mmol/L) Date Value 03/27/2022 137 03/29/2021 139 Last 1 Encounter BP Readings: Date: BP: 05/16/2022 140/76 Please advise. Thank you. Eris Keene RN documented in this encounter [facility] 05-31-2022 Miscellaneous Notes Noted Patient returned call and went over notes below from Dr Yun, Printed copy of ECHO and faxed to Dr Bran [phone] genny Munguia [phone]. Patient said she will see what those Dr say she should do. Suspect Dr. Bran and Dr. Munguia did not know she had echocardiogram done in August here (wonder if they can see on [facility]?). Fax echocardiogram report to both of them so they are aware she has had echo already. EF was good at 69%. Some left diastolic dysfunction Grade 1. No problems with valves. Right ventricle was normal. If she has had worsening symptoms of swelling or SOB, consider our CHF Clinic program to evlauate and treat for possible diastolic CHF with normal ejection fraction. 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 If she has had no acute changes in SOB or swelling and wants to wait to discuss at July appointment, that is fine too unless Dr. Munguia or Dr. Bran think she needs work up sooner than then. Patient calling she had appt today with Dr Genny Munguia ,[facility]. Dr Munguia wanted patient to call PCP and ask for order for 2 D ECHO to rule out CHF. Dr Munguia said she received note from Dr Bran that patient needs checked for CHF. Patient said she saw Dr Bran on 04/25/2022, he mentioned nothing to her. Patient said she was surprised with that. Patient had ECHO done August 2021. Patient asking if that is the same kind Dr Munguia was wanting her to have done? Please advise documented in this encounter [facility] 05-17-2022 Miscellaneous Notes Patient notified.Suma Shepard LPN Let patient know their covid19/influenza test was negative. documented in this encounter [facility] 05-16-2022 Instructions Kaci Savage APRN.CNP - 05/16/2022 11:04 AM EDT ASSESSMENT/PLAN: 1. Suspected COVID-19 virus infection - ICD9: V01.79, ICD10: Z20.822 - COVID WITH FLUA+B, ROUTINE - BENZONATATE 100 MG CAPSULE - GUAIFENESIN ER 600 MG TABLET, EXTENDED RELEASE 12 HR - If you test positive for COVID and have had symptoms less than 5 days and are interested in anti-viral medication treatment, please contact your PCP for a virtual appointment or schedule an appointment with [facility]. - Follow-up with your PCP in 3-5 days if symptoms have not improved or sooner if symptoms worsen - Discussed red flags and need for immediate medical evaluation if any occur. - Discussed supportive care treatment with fluids, rest and analgesia. - Discussed expected course of illness Kaci Savage APRN.TRANSPORTATION ESCORT Beginning Home Isolation Isolation is used to separate people infected with SARS-CoV-2, the virus that causes COVID-19, from people who are not infected. People who are in isolation should stay home until it s safe for them to be around others. In the home, anyone sick or infected should separate themselves from others by staying in a specific sick room or area and using a separate bathroom (if available). Isolation or Quarantine: What's the difference? Quarantine keeps someone who might have been exposed to the virus away from others. Isolation keeps someone who is infected with the virus away from others, even in their home. Who needs to isolate People who have COVID-19 People who have symptoms of COVID-19 and are able to recover at home People who have no symptoms (are asymptomatic) but have tested positive for infection with SARS-CoV-2 Steps to take Stay home except to get medical care Monitor your symptoms. Stay in a separate room from other household members, if possible Use a separate bathroom, if possible Avoid contact with other members of the household and pets Don t share personal household items, like cups, towels, and utensils Wear a mask when around other people, if you are able to When to seek emergency medical attention Look for emergency warning signs* for COVID-19. If someone is showing any of these signs, seek emergency medical care immediately: Trouble breathing Persistent pain or pressure in the chest New confusion Inability to wake or stay awake Bluish lips or face *This list is not all possible symptoms. Please call your medical provider for any other symptoms that are severe or concerning to you. Call 911 or call ahead to your local emergency facility: Notify the bias cutting machine operator vertical that you are seeking care for someone who has or may have COVID-19. Ending Home Isolation - When you can be around others after you had or likely had COVID-19 When you can be around others after you had or likely had COVID-19 If You Test Positive for COVID-19 (Isolation) Everyone, regardless of vaccination status: Stay home for 5 days. Note: Day 0 is your first day of symptoms or the date of collection of a positive viral test if no symptoms. Day 1 is the first full day after symptoms developed or test specimen was collected. If you have no symptoms or your symptoms are resolving after 5 days, you can leave your house. Continue to wear a mask around others for 5 additional days. If you have a fever, continue to stay home until your fever resolves, even if it is longer than 5 days. If You Were Exposed to Someone with COVID-19 (Quarantine) If you: 1. Have been boosted OR 2. Completed the primary series of Pfizer or Moderna vaccine within the last 6 months OR 3. Completed the primary series of J&J vaccine within the last 2 months THEN: 1. Wear a mask around others for 10 days. 2. Test on day 5, if possible. If you develop symptoms get a test and stay home. If You Were Exposed to Someone with COVID-19 (Quarantine) If you: 1. Completed the primary series of Pfizer or Moderna vaccine over 6 months ago and are not boosted OR 2. Completed the primary series of J&J over 2 months ago and are not boosted OR 3. Are unvaccinated THEN: 1. Stay home for 5 days. After that continue to wear a mask around others for 5 additional days. 2. If you can't quarantine you must wear a mask for 10 days. 3. Test on day 5 if possible. If you develop symptoms get a test and stay home. I had COVID-19 or I tested positive for COVID-19 and I have a weakened immune system If you have a weakened immune system (immunocompromised) due to a health condition or medication, you might need to stay home and isolate longer than 10 days. Talk to your healthcare provider for more information. Your doctor may work with an infectious disease expert at your local health department to determine when you can be around others. How to Manage Common Symptoms Associated with COVID for Adults Fever- Fever is a temperature over 100.4 F and can occur when the body is fighting an infection. To help treat a fever: Drink plenty of fluids and stay well hydrated. Eat small amounts of easy to digest food. Rest. Your body needs rest to recover, but getting up and moving around the house frequently is a good idea. You should try to continue doing your normal daily activities (bathing, toileting, grooming, cooking), though you will probably feel tired, and need to rest often. Avoid any heavy activity or exercise, as this will increase your body temperature. Dress in light clothing and stay covered in a light sheet. Keep the room temperature cool. Take a slightly warm (not cold or cool) bath, or apply damp washcloths to the forehead and wrists. Cough- Cough is a common symptom associated with COVID and can be bothersome. To help treat a cough: Stay well hydrated. Try warm water or tea with lemon and/or honey to help soothe the cough. Use a humidifier to add moisture to the air. Try a product with menthol, like a cough drop or a rub for your chest such as Vicks, which can help reduce cough. Try cough drops. Avoid smoking and other strong odors or perfumes. Try breathing exercises to keep your lungs open and clear. Take a big deep breath through your nose and hold for 5 seconds before slowly releasing. Repeat frequently, while you are awake. Congestion- Runny nose or nasal congestion can occur with COVID. Treatment can help relieve symptoms: Try OTC nasal saline spray, or nasal saline rinse to relieve mucus congestion. Nasal strips can help keep nasal passages open, to increase airflow. Elevating your head with an extra pillow in bed can help reduce congestion. Using a humidifier can increase moisture in the air, and make breathing easier. Sore Throat- Another common symptom with COVID, can be managed at home by: Stay well hydrated. Gargle with salt water - mix teaspoon salt with 1 cup of warm water and gargle. This helps to loosen mucus in the back of the throat and may reduce discomfort. Try ice chips, popsicles or lozenges to soothe the throat. Nausea/Vomiting/Diarrhea- These are common symptoms, and staying hydrated is most important. If you are nauseous or vomiting, start with small sips of water every 10-15 minutes and increase as tolerated. You can try sucking an ice cube too. If tolerating, you can try pedialyte or Gatorade, or flat sprite or cyndie-eben. Start slowly and increase as you are able to. Instead of meals, try smaller, more frequent snacks. Try eating bland foods like crackers, toast, rice, and applesauce. Avoid spicy, greasy or fried foods and dairy containing foods. Even if you aren't feeling hungry due to lack of smell or taste, it is important to try to take in some food when you are able. After drinking and eating, rest in an upright position for up to two hours as needed to help decrease nauseous feelings. Try closing your eyes, avoid moving and watching TV. Avoid strong odors that can make you feel more nauseated. When to seek emergency medical attention Look for emergency warning signs for COVID-19. If having any of these symptoms, seek emergency medical care immediately: Trouble breathing Persistent pain or pressure in the chest New confusion Inability to wake or stay awake Bluish lips or face *This list is not all possible symptoms. Please call your medical provider for any other symptoms that are severe or concerning to you. documented in this encounter [facility] 05-16-2022 History of Presen t illness Narrative Subjective HPI Ana Ortega is a 82 year old female who presents with fatigue, body aches, headache, congestion and sore throat and cough. She has had these symptoms for 2 days. She has been taking mucinex and Aleve. She has not had a fever. No known sick contacts. Review of Systems Constitutional: Positive for malaise/fatigue. Negative for fever. HENT: Positive for congestion and sore throat. Respiratory: Positive for cough. Cardiovascular: Negative. Gastrointestinal: Negative for diarrhea, nausea and vomiting. Musculoskeletal: Positive for myalgias. BP 140/76 Pulse 83 Temp 36.2 C (97.2 F) Resp 18 Wt 71.2 kg (157 lb) SpO2 96% BMI 28.72 kg/m PAST MEDICAL HISTORY Diagnosis Date Acute gastritis without mention of hemorrhage 10/31/2007 Adverse reaction to non-steroidal anti-inflammatory drug (NSAID) 03/28/2010 KATHERIN positive 03/04/2014 Gonzales's esophagus C. difficile diarrhea 10/18/2011 Cataract 04/17/2013 [facility], Dr. Dada Rodríguez. Mild cataract in L eye- no need for cataract surgery at this time. Continue to follow up the cataract. 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 At this time, we anticipate that the patient will be discharged home once clinically stable. Plan: - Discuss needs with patient. - Collaborate with Case management to facilitate DC process - Will continue to evaluate during the post op period. - Desat study 11/14/14: patient will need home oxygen (2 L with exertion only) - Discharge home today with home care for assistance with chest tube to [facility]. [facility] Sunday[facility] removal . 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 A face to face encounter was performed during this hospital admission regarding the need for oxygen. The patient verbalized understanding and consents to this therapy. LVATS ODALIS Lobectomy 11/05/2014 74 year old [...] with heimlich -Pain management -Out of bed, cough, deep breathe, acapella, frequent ambulation. -Carb controlled diet . Migraines 11/11/2014 Orthostatic hypotension vasovagal syncope Osteoporosis, unspecified Snoring Tendonitis of ankle, right 05/03/2011 Type II or unspecified type diabetes mellitus without mention of complication, not stated as uncontrolled 02/07/2010 Urge urinary incontinence 12/16/2013 Variants of migraine, not elsewhere classified, without mention of intractable migraine without mention of status migrainosus PAST SURGICAL HISTORY Procedure Laterality Date ADENOIDECTOMY PRIMARY <AGE 14 Adenoidectomy CATARACT SURGERY, COMPLEX 04/2010 right eye COLONOSCOPY FLX DX W/COLLJ SPEC WHEN PFRMD 10/31/2007 Colonoscopy COLONOSCOPY FLX DX W/COLLJ SPEC WHEN PFRMD 09/15/2019 Colonoscopy EGD TRANSORAL BIOPSY SINGLE/MULTIPLE 11/01/2009 EGD TRANSORAL BIOPSY SINGLE/MULTIPLE 11/23/2011 EGD W/O BRSH SPEC VARICIES INJ 12/21/2021 EGD W/O BRSH SPEC VARICIES INJ 12/21/2021 ESOPHAGOGASTRODUODENOSCOPY TRANSORAL DIAGNOSTIC 08/09/2004 EGD ESOPHAGOGASTRODUODENOSCOPY TRANSORAL DIAGNOSTIC 10/31/2007 EGD ESOPHAGOGASTRODUODENOSCOPY TRANSORAL DIAGNOSTIC 11/28/2013 EGD ESOPHAGOGASTRODUODENOSCOPY TRANSORAL DIAGNOSTIC 10/08/2014 EGD ESOPHAGOGASTRODUODENOSCOPY TRANSORAL DIAGNOSTIC 10/15/2015 EGD ESOPHAGOGASTRODUODENOSCOPY TRANSORAL DIAGNOSTIC 09/10/2017 EGD ESOPHAGOGASTRODUODENOSCOPY TRANSORAL DIAGNOSTIC 09/15/2019 EGD LUNG SURGERY HX PAST SURGICAL HISTORY OF rotator cuff RMVL LUNG OTHER THAN PNEUMONECTOMY 1 LOBE LOBECT 11/09/2014 VATS left upper lobectomy TONSILLECTOMY PRIMARY/SECONDARY <AGE 14 Tonsillectomy ALLERGIES Adhesive Tape (Rosins), Aspirin, Boniva [Ibandronate], Carafate [Sucralfate], Ciprofloxacin, Codeine, Ibuprofen, Iodine, Lansoprazole, Macrobid [Nitrofurantoin Monohyd/M-Cryst], Metformin, Neosporin [Insiioof-Sqluioyvfq-Qvymvspez], Protonix [Pantoprazole], Relafen [Nabumetone], Shrimp, and Actos [Pioglitazone Hcl] MEDICATIONS LORazepam (ATIVAN) 1 mg tablet^TAKE 1/2 TO 1 TABLET BY MOUTH EVERY DAY NEEDED FOR FOR ANXIETY^Disp: 30 tablet^Rfl: 2 furosemide (LASIX) 20 mg tablet^Take 1 tablet by mouth once daily. As directed for leg swelling^Disp: 30 tablet^Rfl: 1 rosuvastatin (CRESTOR) 5 mg tablet^Take 1 tablet by mouth daily at bedtime. As directed^Disp: 30 tablet^Rfl: 0 VENTOLIN HFA 90 mcg/actuation inhaler^INHALE 2 PUFFS BY MOUTH EVERY 6 HOURS NEEDED FOR SHORTNESS OF BREATH/WHEEZING^Disp: ^Rfl: Acidophilus-Bif Animalis 10 billion cell cap^Take 1 capsule by mouth once daily.^Disp: 90 capsule^Rfl: 3 fexofenadine (JORDIN) 180 mg tablet^Take 1 tablet by mouth once daily. As directed for allergies^Disp: ^Rfl: esomeprazole (NEXIUM) 40 mg capsule^Take 1 capsule by mouth DAILY (6 AM).^Disp: 90 capsule^Rfl: 3 sertraline (ZOLOFT) 50 mg tablet^Take 1 tablet by mouth once daily.^Disp: 90 tablet^Rfl: 3 metoprolol succinate ER (TOPROL XL) 200 mg 24 hr tablet^Take 1 tablet by mouth once daily.^Disp: 90 tablet^Rfl: 3 insulin aspart U-100 (NOVOLOG FLEXPEN U-100 INSULIN) 100 unit/mL (3 mL)^Inject 12 Units subcutaneously daily with breakfast AND 10 Units daily with lunch AND 12 Units daily with dinner. Adjust as directed. (Dr. Genny Munguia refills).^Disp: ^Rfl: TOVIAZ 4 mg Tb24 extended release tablet^Take 4 mg by mouth once daily. For 30 days^Disp: ^Rfl: multivitamin-folic acid-biotin ([id number]-[id number], [id number],) 400-2,000 mcg tab^Take by mouth.^Disp: ^Rfl: CRANBERRY^ ^Disp: ^Rfl: collagen, bovine, 100 % powd^Apply to affected area.^Disp: ^Rfl: Insulin [place], Disposable, (EASY TOUCH) 31 gauge x 3/16 ^Use 1 needle for each dose. 4x daily^Disp: 360 Each^Rfl: 3 Lancets lancets^Micro-lancets to work with current meter - One touch. Sig: Test blood sugar(s) 2 times daily. Dx: Type 2 DM - Controlled E11.9 , Insulin: Yes^Disp: 100 Each^Rfl: 11 ketoconazole (NIZORAL) 2 % cream^Apply 1 application to affected area twice daily. 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, with long-term current use of insulin^Disp: 2 Each^Rfl: 0 blood sugar diagnostic (EASY TOUCH TEST STRIP) test strip^Check blood sugars 2x per day and as needed Dx: E11.9 insulin: yes^Disp: 100 Strip^Rfl: 11 vit C/E/Zn/coppr/lutein/zeaxan (PRESERVISION AREDS-2 ORAL)^Take by mouth twice daily.^Disp: ^Rfl: Cholecalciferol, Vitamin D3, 1,000 unit cap^Take 2 capsules by mouth once daily.^Disp: ^Rfl: 0 COMPOUNDED PRESCRIPTION^Custom orthotics (E08.40, Z79.4) 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, with long-term current use of insulin^Disp: 2 Each^Rfl: 0 Lancets (ONETOUCH ULTRASOFT LANCETS) lancets^Test blood sugar(s) 2 times daily. Dx: Type 2 DM - Controlled E11.9 , Insulin: Yes^Disp: 100 Each^Rfl: 11 Lancets (EASY TOUCH LANCETS) lancets^1 Each twice daily. DX: 250.00 insulin^Disp: 100 Each^Rfl: 11 multivitamins(DAILY MULTIVITAMIN TAB)^Take one(1) tablet daily.^Disp: ^Rfl: 0 benzonatate (TESSALON PERLE) 100 mg capsule^Take 2 capsules by mouth three times daily as needed for up to 10 days.^Disp: 60 capsule^Rfl: 0 guaiFENesin (MUCINEX) 600 mg 12 hr tablet^Take 1 tablet by mouth twice daily for 10 days.^Disp: 20 tablet^Rfl: 0 vibegron (GEMTESA) 75 mg tablet^Take 75 mg by mouth once daily.^Disp: ^Rfl: (Patient not taking: Reported on 05/02/2022) pregabalin (LYRICA) 50 mg capsule^Take 1 capsule by mouth twice daily for 180 days.^Disp: 180 capsule^Rfl: 1 insulin glargine (LANTUS SOLOSTAR U-100 INSULIN) 100 unit/mL (3 mL)^Inject 18 Units subcutaneously daily at bedtime. (Dr. Genny Munguia refjere)^Disp: ^Rfl: (Patient taking differently: Inject 20 Units subcutaneously daily at bedtime. (Dr. Genny pinedaills)) mirabegron (MYRBETRIQ) 50 mg Tb24^Take 1 tablet by mouth twice daily.^Disp: ^Rfl: (Patient not taking: No sig reported) PREMARIN vaginal cream^APPLY 0.5 GRAMS VAGINALLY BEFORE BED EVERY NIGHT FOR 14 DAYS THEN USE TWICE A WEEK FOR 3 MONTHS^Disp: ^Rfl: (Patient not taking: No sig reported) oxybutynin ER (DITROPAN XL) 10 mg 24 hr tablet^Take 1 tablet by mouth twice daily. (Dr Don)^Disp: ^Rfl: (Patient not taking: No sig reported) SUMAtriptan (IMITREX) 50 mg tablet^Take 1 tablet by mouth. at onset of headache. May take another tablet as needed one hour later.^Disp: 10 tablet^Rfl: 5 (Patient not taking: Reported on 05/02/2022) FAMILY HISTORY Problem Relation Age of Onset Heart Mother Cancer Mother Mesothelioma Cancer Father LUNG Hypertension Maternal Grandfather Osteoporosis Sister Heart Brother congenital heart problems Breast Cancer Sister Social History Tobacco Use Smoking status: Never Smokeless tobacco: Never Substance Use Topics Alcohol use: Yes Comment: 2-3 drinks/years Drug use: No Objective Physical Exam Vitals and nursing note reviewed. Constitutional: Appearance: Normal appearance. HENT: Right Ear: Tympanic membrane, ear canal and external ear normal. Left Ear: Tympanic membrane, ear canal and external ear normal. Mouth/Throat: Mouth: Mucous membranes are moist. Pharynx: Oropharynx is clear. No oropharyngeal exudate or posterior oropharyngeal erythema. Cardiovascular: Rate and Rhythm: Normal rate and regular rhythm. Heart sounds: Normal heart sounds. Pulmonary: Effort: Pulmonary effort is normal. No respiratory distress. Breath sounds: Normal breath sounds. No wheezing or rales. Skin: General: Skin is warm and dry. Findings: No erythema or rash. Neurological: Mental Status: She is alert. ASSESSMENT/PLAN: 1. Suspected COVID-19 virus infection - ICD9: V01.79, ICD10: Z20.822 - COVID WITH FLUA+B, ROUTINE - BENZONATATE 100 MG CAPSULE - GUAIFENESIN ER 600 MG TABLET, EXTENDED RELEASE 12 HR - If you test positive for COVID and have had symptoms less than 5 days and are interested in anti-viral medication treatment, please contact your PCP for a virtual appointment or schedule an appointment with [facility] [place] [facility]. - Follow-up with your PCP in 3-5 days if symptoms have not improved or sooner if symptoms worsen - Discussed red flags and need for immediate medical evaluation if any occur. - Discussed supportive care treatment with fluids, rest and analgesia. - Discussed expected course of illness Kaci Savage APRN.[employer]ATION [employer] documented in this encounter [facility] 05-15-2022 Miscellaneous Notes PATIENT NOTIFIED OF SAME. Recommend a visit to check urgent care today if able. Her home test may have been inaccurate. For now recommend getting sufficient fluids, plenty of rest and Tylenol or ibuprofen as needed for fever. Patient calling to say she developed flu like symptoms of headache, body aches, mild dry cough and fatigue on Sunday 05/13. She home tested negative for COVID. Symptoms are staying the same, not getting worse. She denies fever, chills, chest pain, difficult breathing, SOB. She is asking what to take for headache and body aches. She says she has been taking one Extra Strength Tylenol (500 mg) every 4-5 hours and Aleve every 12 hours and it's not helping. She finished left over Virtussin cough medication for dry cough. Asking if there is anything else she can take? Jaqueline Jones RN documented in this encounter [facility] 05-02-2022 History of Presen t illness Narrative SUBJECTIVE: Ana Ortgea is a 82 year old female. BP CONTROLLED (<130/80) due on 04/25/2020 LDL CHOLESTEROL due on 11/23/2021 URINE ALBUMIN:CREATININE RATIO due on 11/25/2021 DEPRESSION SCREENING due on 11/29/2021 DIABETIC FOOT EXAM due on 03/01/2022 HPI Ana Ortega presents to follow up BMD results which showed osteoporosis. States prior intolerance of ibandronate, GI upset esophageal burning . She has GERD / Gonzales's esophagus requiring chronic medication so would prefer to take osteoporosis treatment that is not oral. Taking benzodiazepine for anxiety, no adverse effects noted. No voiced SI HI. Effective. Review of Systems Constitutional: Negative. Negative for fever. Respiratory: Negative. Cardiovascular: Negative. Psychiatric/Behavioral: Negative for confusion. Objective BP 132/82 Pulse 88 Resp 16 Wt 71.7 kg (158 lb) SpO2 96% BMI 28.90 kg/m Physical Exam Vitals and nursing note reviewed. Constitutional: General: She is not in acute distress. Appearance: Normal appearance. She is not ill-appearing or diaphoretic. HENT: Head: Normocephalic. Eyes: General: Lids are normal. Conjunctiva/sclera: Conjunctivae normal. Left eye: No hemorrhage. Cardiovascular: Rate and Rhythm: Normal rate. Pulmonary: Effort: Pulmonary effort is normal. Skin: General: Skin is warm and dry. Neurological: General: No focal deficit present. Mental Status: She is alert and oriented to person, place, and time. Sensory: Sensation is intact. ALLERGIES Allergen Reactions Adhesive Tape (Chapis* Hives Rash around bandaid never been tested for latex allergy Aspirin Contraindication-Medical Surgical GI bleed Boniva [Ibandronate] GI Upset Esophageal burning Carafate [Sucralfat* Other: See Comments feels poorly Ciprofloxacin Other: See Comments photosensitivity, dermatitis Codeine GI Upset Ibuprofen GI Upset Iodine Vomiting Lansoprazole Diarrhea Macrobid [Nitrofura* GI Upset, Anaphylaxis Headache, nausea, stomach pain Metformin Diarrhea Neosporin [Neomycin* Rash blisters Protonix [Pantopraz* Diarrhea Relafen [Nabumetone] GI Upset, Vomiting Shrimp GI Upset Actos [Pioglitazone* Swelling furosemide (LASIX) 20 mg tablet^Take 1 tablet by mouth once daily. As directed for leg swelling^Disp: 30 tablet^Rfl: 1 rosuvastatin (CRESTOR) 5 mg tablet^Take 1 tablet by mouth daily at bedtime. As directed^Disp: 30 tablet^Rfl: 0 VENTOLIN HFA 90 mcg/actuation inhaler^INHALE 2 PUFFS BY MOUTH EVERY 6 HOURS NEEDED FOR SHORTNESS OF BREATH/WHEEZING^Disp: ^Rfl: Acidophilus-Bif Animalis 10 billion cell cap^Take 1 capsule by mouth once daily.^Disp: 90 capsule^Rfl: 3 fexofenadine (JORDIN) 180 mg tablet^Take 1 tablet by mouth once daily. As directed for allergies^Disp: ^Rfl: esomeprazole (NEXIUM) 40 mg capsule^Take 1 capsule by mouth DAILY (6 AM).^Disp: 90 capsule^Rfl: 3 sertraline (ZOLOFT) 50 mg tablet^Take 1 tablet by mouth once daily.^Disp: 90 tablet^Rfl: 3 metoprolol succinate ER (TOPROL XL) 200 mg 24 hr tablet^Take 1 tablet by mouth once daily.^Disp: 90 tablet^Rfl: 3 insulin aspart U-100 (NOVOLOG FLEXPEN U-100 INSULIN) 100 unit/mL (3 mL)^Inject 12 Units subcutaneously daily with breakfast AND 10 Units daily with lunch AND 12 Units daily with dinner. Adjust as directed. (Dr. Genny Munguia refills).^Disp: ^Rfl: TOVIAZ 4 mg Tb24 extended release tablet^Take 4 mg by mouth once daily. For 30 days^Disp: ^Rfl: multivitamin-folic acid-biotin ([id number]-[id number]-CCHAM, [id number],) 400-2,000 mcg tab^Take by mouth.^Disp: ^Rfl: CRANBERRY^ ^Disp: ^Rfl: collagen, bovine, 100 % powd^Apply to affected area.^Disp: ^Rfl: insulin glargine (LANTUS SOLOSTAR U-100 INSULIN) 100 unit/mL (3 mL)^Inject 18 Units subcutaneously daily at bedtime. (Dr. Genny Munguia refills)^Disp: ^Rfl: (Patient taking differently: Inject 20 Units subcutaneously daily at bedtime. (Dr. Genny Munguia refills)) Insulin [place], Disposable, (EASY TOUCH) 31 gauge x 3/16 ^Use 1 needle for each dose. 4x daily^Disp: 360 Each^Rfl: 3 Lancets lancets^Micro-lancets to work with current meter - One touch. Sig: Test blood sugar(s) 2 times daily. Dx: Type 2 DM - Controlled E11.9 , Insulin: Yes^Disp: 100 Each^Rfl: 11 ketoconazole (NIZORAL) 2 % cream^Apply 1 application to affected area twice daily. Continue for 1 week after rash resolves.^Disp: 30 g^Rfl: 0 Cranberry-Vitamin C-Vitamin E (CRANBERRY PLUS VITAMIN C) 140-100 mg cap^Patient takes Cranberry with Vitamin C capsule that contains 15,000 mg Cranberry and 100mg Vitamin C^Disp: ^Rfl: Biotin 2,500 mcg cap^Nurse reports patient taking 1500 mcg dose once daily (cannot find 1500mcg dose on menu)^Disp: ^Rfl: blood sugar diagnostic (EASY TOUCH TEST STRIP) test strip^Check blood sugars 2x per day and as needed Dx: E11.9 insulin: yes^Disp: 100 Strip^Rfl: 11 vit C/E/Zn/coppr/lutein/zeaxan (PRESERVISION AREDS-2 ORAL)^Take by mouth twice daily.^Disp: ^Rfl: Cholecalciferol, Vitamin D3, 1,000 unit cap^Take 2 capsules by mouth once daily.^Disp: ^Rfl: 0 Lancets (ONETOUCH ULTRASOFT LANCETS) lancets^Test blood sugar(s) 2 times daily. Dx: Type 2 DM - Controlled E11.9 , Insulin: Yes^Disp: 100 Each^Rfl: 11 Lancets (EASY TOUCH LANCETS) lancets^1 Each twice daily. DX: 250.00 insulin^Disp: 100 Each^Rfl: 11 multivitamins(DAILY MULTIVITAMIN TAB)^Take one(1) tablet daily.^Disp: ^Rfl: 0 LORazepam (ATIVAN) 1 mg tablet^TAKE 1/2 TO 1 TABLET BY MOUTH EVERY DAY NEEDED FOR FOR ANXIETY^Disp: 30 tablet^Rfl: 2 vibegron (GEMTESA) 75 mg tablet^Take 75 mg by mouth once daily.^Disp: ^Rfl: (Patient not taking: Reported on 05/02/2022) pregabalin (LYRICA) 50 mg capsule^Take 1 capsule by mouth twice daily for 180 days.^Disp: 180 capsule^Rfl: 1 mirabegron (MYRBETRIQ) 50 mg Tb24^Take 1 tablet by mouth twice daily.^Disp: ^Rfl: (Patient not taking: No sig reported) PREMARIN vaginal cream^APPLY 0.5 GRAMS VAGINALLY BEFORE BED EVERY NIGHT FOR 14 DAYS THEN USE TWICE A WEEK FOR 3 MONTHS^Disp: ^Rfl: (Patient not taking: No sig reported) oxybutynin ER (DITROPAN XL) 10 mg 24 hr tablet^Take 1 tablet by mouth twice daily. (Dr Don)^Disp: ^Rfl: (Patient not taking: No sig reported) Miscellaneous Medical Supply misc^[employer] Orthotics (E08.40, Z79.4) 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, with long-term current use of insulin^Disp: 2 Each^Rfl: 0 SUMAtriptan (IMITREX) 50 mg tablet^Take 1 tablet by mouth. at onset of headache. May take another tablet as needed one hour later.^Disp: 10 tablet^Rfl: 5 (Patient not taking: Reported on 05/02/2022) COMPOUNDED PRESCRIPTION^Custom orthotics (E08.40, Z79.4) 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, with long-term current use of insulin^Disp: 2 Each^Rfl: 0 PAST MEDICAL HISTORY Diagnosis Date Acute gastritis without mention of hemorrhage 10/31/2007 Adverse reaction to non-steroidal anti-inflammatory drug (NSAID) 03/28/2010 KATHERIN positive 03/04/2014 Gonzales's esophagus C. difficile diarrhea 10/18/2011 Cataract 04/17/2013 [facility], Dr. Dada Rodríguez. Mild cataract in L eye- no need for cataract surgery at this time. Continue to follow up the cataract. 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 At this time, we anticipate that the patient will be discharged home once clinically stable. Plan: - Discuss needs with patient. - Collaborate with Case management to facilitate DC process - Will continue to evaluate during the post op period. - Desat study 11/14/14: patient will need home oxygen (2 L with exertion only) - Discharge home today with home care for assistance with chest tube to [facility]. [facility] removal . 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 A face to face encounter was performed during this hospital admission regarding the need for oxygen. The patient verbalized understanding and consents to this therapy. LVATS ODALIS Lobectomy 11/05/2014 74 year old [...] with heimlich -Pain management -Out of bed, cough, deep breathe, acapella, frequent ambulation. -Carb controlled diet . Migraines 11/11/2014 Orthostatic hypotension vasovagal syncope Osteoporosis, unspecified Snoring Tendonitis of ankle, right 05/03/2011 Type II or unspecified type diabetes mellitus without mention of complication, not stated as uncontrolled 02/07/2010 Urge urinary incontinence 12/16/2013 Variants of migraine, not elsewhere classified, without mention of intractable migraine without mention of status migrainosus Social History Tobacco Use Smoking status: Never Smokeless tobacco: Never Substance Use Topics Alcohol use: Yes Comment: 2-3 drinks/years Drug use: No IMPRESSION: Osteoporosis . WORLD [facility] ORG. CLASSIFICATION OF BONE MASS CLASSIFICATION T-SCORE Normal Greater than -1 Low Bone Mass Between -1 and -2.5 (Osteopenia) Osteoporosis Less than or equal to -2.5 General Duty Nurse: ABHILASH Transcribe Date/Time: Apr 03 2022 12:29P Dictated by : JORDYN WOLF MD This examination was interpreted and the report reviewed and electronically signed by: JORDYN WOLF MD on Apr 03 2022 12:29PM EST Results-Findings * * *Final Report* * * DATE OF EXAM: Apr 03 2022 9:58AM [facility] 0804 - BD DXA - AXIAL SKELETON / PROCEDURE REASON: Asymptomatic postmenopausal status * * * * Physician Interpretation * * * * PROCEDURE: BD DXA - AXIAL SKELETON INDICATION: Asymptomatic postmenopausal status TECHNIQUE: Low dose AP spine and hip images COMPARISON: LUMBAR SPINE: The bone mineral density from L1 through L4 is 0.789 grams per square centimeter which yields a T-score of -2.3 . . LEFT HIP: The bone mineral density of the total region of the hip is 0.865 grams per square centimeter which yields a T-score of -0.6 . . LEFT FEMORAL NECK: The bone mineral density of the femoral neck is 0.590 grams per square centimeter which yields a T-score of -2.3 . . RIGHT HIP: The bone mineral density of the total region of the hip is 0.770 grams per square centimeter which yields a T-score of -1.4 . . RIGHT FEMORAL NECK: The bone mineral density of the femoral neck is 0.522 grams per square centimeter which yields a T-score of -2.9 . . ASSESSMENT/PLAN: 1. Osteoporosis, unspecified osteoporosis type, unspecified pathological fracture presence - ICD9: 733.00, ICD10: M81.0 (primary diagnosis) Continue with 1200 mg of calcium through diet or supplement daily, vitamin D and routine weight bearing exercise such as walking Considering Prolia or if this time. Prolia does not appear to be covered by her insurance. She will check. Provided with written information regarding both medications today. She will let us know when she would like to proceed with when she checks with her insurance. 2. Anxiety - ICD9: 300.00, ICD10: F41.9 Stable, currently controlled, continue to monitor. PDMP website checked and validated. All prescriptions have been APPROPRIATELY filled. No suspicious activity was identified. 05/02/2022 by Clarence Berry APRN.SIDNEY - LORAZEPAM 1 MG TABLET 3. Encounter for immunization - ICD9: V03.89, ICD10: Z23 - INFLUENZA SEASONAL QUADRIVALENT HIGH DOSE AGE 65+ Clarence Berry APRN.CNS Medical Decision Making: Problems: Low: Acute, uncomplicated illness or injury Data: Independent interpretation of test from other physician/QHCP Risk: Moderate: Drug management Medical Decision Making Level: 4 - Moderate documented in this encounter [facility] 05-02-2022 Instructions Clarence Berry APRN.CNS - 05/02/2022 12:25 PM EDT Check with your insurance regarding coverage of prolia or reclast for osteoporosis documented in this encounter [facility] 04-19-2022 Miscellaneous Notes Spoke with pt and information listed below given. Pt verbalizes understanding. Results were given. Pt requested an apt to discuss medication options. Pt requested a copy of report and results be mailed to her. Done. Chelsy Valverde LPN See my result note Pt calling for Bone Density results. Please advise pt. Chelsy Valverde LPN documented in this encounter [facility] 04-03-2022 History of Presen t illness Narrative Radiology Service Progress Note PATIENT NAME: Ana Ortega DATE OF SERVICE: April 03, 2022 TIME: 9:30 AM PATIENT IDENTITY VERIFICATION COMPLETED USING TWO [...] IMPLANT DATA REVIEWED: Not Applicable RADIOLOGY DEPARTMENT: Bone Density PERIPHERAL IV DATA: Not applicable SIGNED BY: RT Radha(R) April 03, 2022 9:30 AM documented in this encounter [facility] 03-31-2022 Instructions Alicia Yun MD - 03/31/2022 2:54 PM EDT May start Crestor (rosuvastatin) half or whole pill once weekly. Will see how labs are and how well you tolerate this. Vitamin B6 vitamin 25 to 50 mg daily. Voltaren gel could help for the arm pain--target elbow and wrist areas. Can wear splint for wrist as needed. Also elbow strap. BONE MINERAL DENSITY PATIENT INSTRUCTIONS ========= Bone mineral density testing measures the amount of calcium in certain parts of your bones. This information determines how strong your bones are. The test is used to detect osteoporosis, a disease in which the bone's mineral content and density are low, increasing a person's risk of fractures. The lumbar spine (lower back) and the hip are the skeletal sites usually examined. For the test, remember that: 1. You cannot take this test if you are . 2. Eat a normal diet on the day of the test. 3. Take your medications as you normally would. 4. DO NOT take calcium supplements (such as Tums) for 24 hours before the test. 5. On the day of the test, leave valuables (jewelry or credit cards) at home. 6. The test should be performed prior to oral, rectal or IV contrast studies, or at least 7 days after any of these studies. For the test, you may be asked to wear a hospital gown. You will lie on your back, on a padded table, in a comfortable position. Generally, you can resume your usual activities immediately. documented in this encounter [facility] 03-31-2022 History of Presen t illness Narrative This note was created using [employer]. Subjective Ana Ortega is a 81 year old female. Patient presents with: Follow Up SUBJECTIVE: Ana Ortega is a 81 year old year old lady here today for 4 month follow up appointment for review of medical conditions. Stopped Lipitor--appears to cause body aches. Dr. Munguia taking care of DM. Reviewed Clinic med list Did not start B6 yet. Sprained right ankle and still swells. Soft socks helps for swelling. Years of holding ipad with left hand and now forearm up to shoulder hurts now. Tried Biofreeze. Noted balance issues. Also trouble with word finding sometimes. Worse when tired. Talked to neurologist. Dr. Bran 04/28 for follow up. PAST MEDICAL HISTORY Diagnosis Date Acute gastritis without mention of hemorrhage 10/31/2007 Adverse reaction to non-steroidal anti-inflammatory drug (NSAID) 03/28/2010 KATHERIN positive 03/04/2014 Gonzales's esophagus C. difficile diarrhea 10/18/2011 Cataract 04/17/2013 [facility], Dr. Dada Rodríguez. Mild cataract in L eye- no need for cataract surgery at this time. Continue to follow up the cataract. 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 At this time, we anticipate that the patient will be discharged home once clinically stable. Plan: - Discuss needs with patient. - Collaborate with Case management to facilitate DC process - Will continue to evaluate during the post op period. - Desat study 11/14/14: patient will need home oxygen (2 L with exertion only) - Discharge home today with home care for assistance with chest tube to [facility]. Return [facility] Sunday11[facility] removal . 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 A face to face encounter was performed during this hospital admission regarding the need for oxygen. The patient verbalized understanding and consents to this therapy. LVATS ODALIS Lobectomy 11/05/2014 74 year old [...] with heimlich -Pain management -Out of bed, cough, deep breathe, acapella, frequent ambulation. -Carb controlled diet . Migraines 11/11/2014 Orthostatic hypotension vasovagal syncope Osteoporosis, unspecified Snoring Tendonitis of ankle, right 05/03/2011 Type II or unspecified type diabetes mellitus without mention of complication, not stated as uncontrolled 02/07/2010 Urge urinary incontinence 12/16/2013 Variants of migraine, not elsewhere classified, without mention of intractable migraine without mention of status migrainosus Current Outpatient Medications Medication Sig vibegron (GEMTESA) 75 mg tablet Take 75 mg by mouth once daily. LORazepam (ATIVAN) 1 mg tablet TAKE 1/2 TO 1 TABLET BY MOUTH EVERY DAY NEEDED FOR FOR ANXIETY VENTOLIN HFA 90 mcg/actuation inhaler INHALE 2 PUFFS BY MOUTH EVERY 6 HOURS NEEDED FOR SHORTNESS OF BREATH/WHEEZING Acidophilus-Bif Animalis 10 billion cell cap Take 1 capsule by mouth once daily. fexofenadine (JORDIN) 180 mg tablet Take 1 tablet by mouth once daily. As directed for allergies furosemide (LASIX) 20 mg tablet Take 1 tablet by mouth once daily. As directed for leg swelling esomeprazole (NEXIUM) 40 mg capsule Take 1 capsule by mouth DAILY (6 AM). pregabalin (LYRICA) 50 mg capsule Take 1 capsule by mouth twice daily for 180 days. sertraline (ZOLOFT) 50 mg tablet Take 1 tablet by mouth once daily. metoprolol succinate ER (TOPROL XL) 200 mg 24 hr tablet Take 1 tablet by mouth once daily. insulin aspart U-100 (NOVOLOG FLEXPEN U-100 INSULIN) 100 unit/mL (3 mL) Inject 12 Units subcutaneously daily with breakfast AND 10 Units daily with lunch AND 12 Units daily with dinner. Adjust as directed. (Dr. Genny funes). TOVIAZ 4 mg Tb24 extended release tablet Take 4 mg by mouth once daily. For 30 days multivitamin-folic acid-biotin (KKSY-GBXE-UXZGP, QE-RF-NADKWL,) 400-2,000 mcg tab Take by mouth. CRANBERRY collagen, bovine, 100 % powd Apply to affected area. insulin glargine (LANTUS SOLOSTAR U-100 INSULIN) 100 unit/mL (3 mL) Inject 18 Units subcutaneously daily at bedtime. (Dr. Genny funes) (Patient taking differently: Inject 20 Units subcutaneously daily at bedtime. (Dr. Genny funes)) sertraline (ZOLOFT) 50 mg tablet Take 1 tablet by mouth once daily. Insulin [place], Disposable, (EASY TOUCH) 31 gauge x 3/16 Use 1 needle for each dose. 4x daily Lancets lancets Micro-lancets to work with current meter - One touch. Sig: Test blood sugar(s) 2 times daily. Dx: Type 2 DM - Controlled E11.9 , Insulin: Yes ketoconazole (NIZORAL) 2 % cream Apply 1 application to affected area twice daily. Continue for 1 week after rash resolves. Cranberry-Vitamin C-Vitamin E (CRANBERRY PLUS VITAMIN C) 140-100 mg cap Patient takes Cranberry with Vitamin C capsule that contains 15,000 mg Cranberry and 100mg Vitamin C Biotin 2,500 mcg cap Nurse reports patient taking 1500 mcg dose once daily (cannot find 1500mcg dose on menu) Miscellaneous Medical Supply [facility] [employer] (E08.40, Z79.4) 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, with long-term current use of insulin blood sugar diagnostic (EASY TOUCH TEST STRIP) [...] neuropathy, with long-term current use of insulin Lancets (ONETOUCH ULTRASOFT LANCETS) lancets Test blood sugar(s) 2 times daily. Dx: Type 2 DM - Controlled E11.9 , Insulin: Yes Lancets (EASY TOUCH LANCETS) lancets 1 Each twice daily. DX: 250.00 insulin multivitamins(DAILY MULTIVITAMIN TAB) Take one(1) tablet daily. atorvastatin (LIPITOR) 20 mg tablet Take 1 tablet by mouth once daily. (Patient not taking: No sig reported) mirabegron (MYRBETRIQ) 50 mg Tb24 Take 1 tablet by mouth twice daily. (Patient not taking: Reported on 03/31/2022) PREMARIN vaginal cream APPLY 0.5 GRAMS VAGINALLY BEFORE BED EVERY NIGHT FOR 14 DAYS THEN USE TWICE A WEEK FOR 3 MONTHS (Patient not taking: No sig reported) oxybutynin ER (DITROPAN XL) 10 mg 24 hr tablet Take 1 tablet by mouth twice daily. (Dr Don) (Patient not taking: No sig reported) Current Facility-Administered Medications Medication Dose Route Frequency perflutren lipid microspheres 1.3 mL in NaCl (PF) 0.9% 10 mL injection (DEFINITY) INTRAVENOUS DIRECTED PRN sodium chloride 0.9 % (flush) 10 mL (BD POSIFLUSH) 10 mL INTRAVENOUS DIRECTED PRN Review of Systems Objective BP 128/78 Pulse 76 Wt 70.3 kg (155 lb) SpO2 95% BMI 28.35 kg/m Last 5 Encounter Wt Readings: Date: Wt: 03/31/2022 70.3 kg (155 lb) 01/30/2022 70.7 kg (155 lb 12.8 oz) 12/27/2021 70.3 kg (155 lb) 12/21/2021 67.6 kg (149 lb) 11/22/2021 67.6 kg (149 lb) No waist measurement recorded Estimated body mass index is 28.35 kg/m as calculated from the following: Height as of 12/21/21: 157.5 cm (5' 2 ). Weight as of this encounter: 70.3 kg (155 lb). Last 5 Encounter BP Readings: Date: BP: 03/31/2022 128/78 01/30/2022 122/80 12/27/2021 112/76 12/21/2021 198/61 12/21/2021 160/82 Physical Exam Musculoskeletal: Right lower leg: Edema (ankle and foot) present. Comments: Left Lateral epicondyle and left radial wrist area and forearm tender Component Latest Ref Rng & Units 11/23/2020 11/25/2020 03/01/2021 03/29/2021 03/27/2022 Protein, Total 6.3 - 8.0 g/dL 6.7 6.6 Albumin 3.9 - 4.9 g/dL 4.1 4.1 Calcium 8.5 - 10.2 mg/dL 8.9 8.6 8.4 (L) Bilirubin, Total 0.2 - 1.3 mg/dL 0.3 0.3 Alkaline Phosphatase 34 - 123 U/L 97 104 AST 13 - 35 U/L 11 (L) 16 Glucose 74 - 99 mg/dL 172 (H) 200 (H) 240 (H) BUN 7 - 21 mg/dL 15 11 15 Creatinine 0.58 - 0.96 mg/dL 0.66 0.62 0.74 Sodium 136 - 144 mmol/L 142 139 137 Potassium 3.7 - 5.1 mmol/L 4.0 3.8 4.2 Chloride 97 - 105 mmol/L 105 106 (H) 104 CO2 22 - 30 mmol/L 29 26 22 Anion Gap 9 - 18 mmol/L 8 (L) 7 (L) 11 ALT 7 - 38 U/L 11 13 eGFR- >60 >60 eGFR-All Other Races . >60 >60 eGFR >=60 mL/min/1.73m 82 WBC 3.70 - 11.00 k/uL 6.45 6.90 RBC 3.90 - 5.20 m/uL 4.09 4.17 Hemoglobin 11.5 - 15.5 g/dL 12.8 12.7 Hematocrit 36.0 - 46.0 % 36.8 37.2 MCV 80.0 - 100.0 fL 90.0 89.2 MCH 26.0 - 34.0 pg 31.3 30.5 MCHC 30.5 - 36.0 g/dL 34.8 34.1 RDW-CV 11.5 - 15.0 % 13.1 13.5 Platelet Count 150 - 400 k/uL 218 221 MPV 9.0 - 12.7 fL 9.9 9.8 Absolute nRBC <0.01 k/uL <0.01 <0.01 Cholesterol, Total <200 mg/dL 163 Triglyceride <150 mg/dL 160 (H) HDL Cholesterol >39 mg/dL 49 LDL Cholesterol <100 mg/dL 82 Non HDL Cholesterol <130 mg/dL 114 Fasting Time hrs 13 VLDL Cholesterol <30 mg/dL 32 (H) TC:HDL Ratio <5.10 3.33 LDL:HDL Ratio <2.54 1.67 Creatinine, Ur Random (UCRR) 20 - 300 mg/dL 102.0 Albumin, Urine Random mg/L <12.0 Albumin/Creat Ratio <30 mg/g Not calculated Hemoglobin A1C 4.3 - 5.6 % 7.3 (H) 8.0 (H) 7.7 (H) Estimated Average Glucose mg/dL 163 183 174 Vitamin D 25 Hydroxy 31.0 - 80.0 ng/mL 55.2 51.4 Hemoglobin A1C (POCT) 4.2 - 5.6 % 7.9 (A) Vitamin B12 232 - 1,245 pg/mL 989 Vitamin B6, Plasma 20.0 - 125.0 nmol/L 12.7 (L) Magnesium 1.7 - 2.3 mg/dL 1.7 Hemoglobin A1C (%) Date Value 03/27/2022 7.7 03/29/2021 8.0 11/23/2020 7.3 07/23/2020 7.1 01/22/2020 7.2 10/20/2019 7.4 Hemoglobin A1C (POCT) (%) Date Value 03/01/2021 7.9 HGB A1C (no units) Date Value 07/18/2021 7.4 Assessment and Plan ASSESSMENT/PLAN: 1. Vitamin D deficiency - ICD9: 268.9, ICD10: E55.9 (primary diagnosis) Level good. Continue present management. Adjust dose as needed. - VITAMIN D 25 HYDROXY 2. Chronic cough - ICD9: 786.2, ICD10: R05.3 - CODEINE 10 MG-GUAIFENESIN 100 MG/5 ML ORAL LIQUID 3. Vitamin B6 deficiency - ICD9: 266.1, ICD10: E53.1 Level was low. Replacement as discussed. - VITAMIN B6/PYRIDOXIN 4. Essential hypertension - ICD9: 401.9, ICD10: I10 - good control - Continue current medication(s) - Recommended regular aerobic exercise. - Goal of BP <130/80 - COMP METABOLIC PANEL - CBC 5. 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, with long-term current use of insulin (HCC) - ICD9: 249.60, 357.2, V58.67, ICD10: E08.40, Z79.4 Well controlled. Continue present management. - COMP METABOLIC PANEL - HGB A1C - ALBUMIN/CREAT RATIO RND UR 6. Hyperlipidemia, unspecified hyperlipidemia type - ICD9: 272.4, ICD10: E78.5 - to be determined upon return of lab results - Continue current medication. - LIPID PANEL BASIC Alicia Yun MD documented in this encounter [facility] 01-30-2022 Instructions Anu Pablo PA-C - 01/30/2022 1:08 PM EDT Images from the original note were not included. Ankle Sprains What is an ankle sprain? An ankle sprain is when one of the ligaments in the ankle that connects bone or cartilage together gets stretched or torn. It is one of the most common injuries encountered in sports and usually involves the outside part of the ankle. Depending on the severity of the sprain there may be swelling and bruising of the ankle and a limp while walking. How is it diagnosed? A history and physical exam by a doctor or other healthcare professional such as an personal trainer may be all that is necessary to diagnose an ankle sprain. Sometimes an x-ray is done to make sure there is no fracture present. How is it treated? Treatment depends on the nature and severity of the sprain. In all cases initial treatment involves control of pain and swelling. Usually, this can be accomplished with a brief period of rest from activities, ice, and elevation of the affected ankle. If necessary the child may be placed on crutches or in a walking boot for a brief period of time. As the initial pain and swelling from the injury resolve the patient should be encouraged to start range of motion exercises with the ankle. Strengthening exercises are the next step followed by balance, and finally functional exercises such as hopping, twisting and making cutting motions. Return to play may occur when the child can perform these exercises free of pain. How long does it last? Everyone s body is different and thus will take different times to heal. Return to activities should be based on how long it takes your child to recover not by how much time has passed. However, a typical ankle sprain will completely heal within three-six weeks. If the child is still having a lot of problems after this time frame, further imaging studies such as an MRI may be done to look for other injuries that may have been missed by the x-ray. How can it be prevented? Proper fitting shoes with good ankle support are recommended for sports that require a lot of cutting, jumping and twisting on the ankles. If an athlete sustains a sprain, rehabilitation of the ankle followed by ankle bracing and taping are necessary because if these do not occur the likelihood of the athlete sustaining another sprain to the same ankle is quite high. When should medical attention be sought? If the child walks with a persistent limp, continues to have persistent pain despite good rehabilitation program, or develops fever or excessive swelling of the ankle after the swelling from the initial injury has gone away. documented in this encounter [facility] 01-30-2022 History of Presen t illness Narrative 01/30/2022 Patient presents with: Ankle Injury: right x 1 day, twisted SUBJECTIVE: This is a 81 year old that is here today for Complaint(s) of right ankle injury x yesterday. States she was walking yesterday in a strapy shoe and twisted her ankle to the outside. Pain immediately, and has persisted. She was able to walk on the ankle after injury, but very painful per patient. Still has pain with weight bearing and walking. + swelling, but tells me she always has ERMIAS ankle swelling, slightly worse yesterday, improved this morning-elevated last night. Denies numbness/tingling. PAST MEDICAL HISTORY Diagnosis Date Acute gastritis without mention of hemorrhage 10/31/2007 Adverse reaction to non-steroidal anti-inflammatory drug (NSAID) 03/28/2010 KATHERIN positive 03/04/2014 Gonzales's esophagus C. difficile diarrhea 10/18/2011 Cataract 04/17/2013 [facility], Dr. Dada Rodríguez. Mild cataract in L eye- no need for cataract surgery at this time. Continue to follow up the cataract. 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 At this time, we anticipate that the patient will be discharged home once clinically stable. Plan: - Discuss needs with patient. - Collaborate with Case management to facilitate DC process - Will continue to evaluate during the post op period. - Desat study 11/14/14: patient will need home oxygen (2 L with exertion only) - Discharge home today with home care for assistance with chest tube to [facility]. [facility] removal . 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 A face to face encounter was performed during this hospital admission regarding the need for oxygen. The patient verbalized understanding and consents to this therapy. LVATS ODALIS Lobectomy 11/05/2014 74 year old [...] with heimlich -Pain management -Out of bed, cough, deep breathe, acapella, frequent ambulation. -Carb controlled diet . Migraines 11/11/2014 Orthostatic hypotension vasovagal syncope Osteoporosis, unspecified Snoring Tendonitis of ankle, right 05/03/2011 Type II or unspecified type diabetes mellitus without mention of complication, not stated as uncontrolled 02/07/2010 Urge urinary incontinence 12/16/2013 Variants of migraine, not elsewhere classified, without mention of intractable migraine without mention of status migrainosus ALLERGIES Adhesive Tape (Rosins), Aspirin, Boniva [Ibandronate], Carafate [Sucralfate], Ciprofloxacin, Codeine, Ibuprofen, Iodine, Lansoprazole, Macrobid [Nitrofurantoin Monohyd/M-Cryst], Metformin, Neosporin [Rpqvghek-Tuvubtxjjl-Htxffftci], Protonix [Pantoprazole], Relafen [Nabumetone], Shrimp, and Actos [Pioglitazone Hcl] MEDICATIONS Current Outpatient Medications Medication Sig LORazepam (ATIVAN) 1 mg tablet TAKE 1/2 TO 1 TABLET BY MOUTH EVERY DAY NEEDED FOR FOR ANXIETY VENTOLIN HFA 90 mcg/actuation inhaler INHALE 2 PUFFS BY MOUTH EVERY 6 HOURS NEEDED FOR SHORTNESS OF BREATH/WHEEZING Acidophilus-Bif Animalis 10 billion cell cap Take 1 capsule by mouth once daily. fexofenadine (JORDIN) 180 mg tablet Take 1 tablet by mouth once daily. As directed for allergies furosemide (LASIX) 20 mg tablet Take 1 tablet by mouth once daily. As directed for leg swelling esomeprazole (NEXIUM) 40 mg capsule Take 1 capsule by mouth DAILY (6 AM). pregabalin (LYRICA) 50 mg capsule Take 1 capsule by mouth twice daily for 180 days. sertraline (ZOLOFT) 50 mg tablet Take 1 tablet by mouth once daily. metoprolol succinate ER (TOPROL XL) 200 mg 24 hr tablet Take 1 tablet by mouth once daily. insulin aspart U-100 (NOVOLOG FLEXPEN U-100 INSULIN) 100 unit/mL (3 mL) Inject 12 Units subcutaneously daily with breakfast AND 10 Units daily with lunch AND 12 Units daily with dinner. Adjust as directed. (Dr. Genny Munguia refills). TOVIAZ 4 mg Tb24 extended release tablet Take 4 mg by mouth once daily. For 30 days multivitamin-folic acid-biotin (PYXJ-IQEO-XTDWV, GG-SC-USMKON,) 400-2,000 mcg tab Take by mouth. CRANBERRY collagen, bovine, 100 % powd Apply to affected area. insulin glargine (LANTUS SOLOSTAR U-100 INSULIN) 100 unit/mL (3 mL) Inject 18 Units subcutaneously daily at bedtime. (Dr. Genny Munguia refills) (Patient taking differently: Inject 20 Units subcutaneously daily at bedtime. (Dr. Genny Munguia refills) ) sertraline (ZOLOFT) 50 mg tablet Take 1 tablet by mouth once daily. Insulin [place], Disposable, (EASY TOUCH) 31 gauge x 3/16 Use 1 needle for each dose. 4x daily Lancets lancets Micro-lancets to work with current meter - One touch. Sig: Test blood sugar(s) 2 times daily. Dx: Type 2 DM - Controlled E11.9 , Insulin: Yes ketoconazole (NIZORAL) 2 % cream Apply 1 application to affected area twice daily. Continue for 1 week after rash resolves. Cranberry-Vitamin C-Vitamin E (CRANBERRY PLUS VITAMIN C) 140-100 mg cap Patient takes Cranberry with Vitamin C capsule that contains 15,000 mg Cranberry and 100mg Vitamin C Biotin 2,500 mcg cap Nurse reports patient taking 1500 mcg dose once daily (cannot find 1500mcg dose on menu) mirabegron (MYRBETRIQ) 50 mg Tb24 Take 1 tablet by mouth twice daily. Miscellaneous Medical Supply [facility] [employer] (E08.40, Z79.4) 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, with long-term current use of insulin blood sugar diagnostic (EASY TOUCH TEST STRIP) test strip Check blood sugars 2x per day and as needed Dx: E11.9 insulin: yes vit C/E/Zn/coppr/lutein/zeaxan (PRESERVISION AREDS-2 ORAL) Take by mouth twice daily. Cholecalciferol, Vitamin D3, 1,000 unit cap Take 2 capsules by mouth once daily. COMPOUNDED PRESCRIPTION [employer] (E08.40, Z79.4) 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, with long-term current use of insulin Lancets (ONETOUCH ULTRASOFT LANCETS) lancets Test blood sugar(s) 2 times daily. Dx: Type 2 DM - Controlled E11.9 , Insulin: Yes Lancets (EASY TOUCH LANCETS) lancets 1 Each twice daily. DX: 250.00 insulin multivitamins(DAILY MULTIVITAMIN TAB) Take one(1) tablet daily. atorvastatin (LIPITOR) 20 mg tablet Take 1 tablet by mouth once daily. (Patient not taking: Reported on 01/30/2022 ) PREMARIN vaginal cream APPLY 0.5 GRAMS VAGINALLY BEFORE BED EVERY NIGHT FOR 14 DAYS THEN USE TWICE A WEEK FOR 3 MONTHS (Patient not taking: APPLY 0.5 GRAMS VAGINALLY BEFORE BED EVERY NIGHT FOR 14 DAYS THEN USE TWICE A WEEK FOR 3 MONTHS) oxybutynin ER (DITROPAN XL) 10 mg 24 hr tablet Take 1 tablet by mouth twice daily. (Dr Don) (Patient not taking: Reported on 12/27/2021 ) SUMAtriptan (IMITREX) 50 mg tablet Take 1 tablet by mouth. at onset of headache. May take another tablet as needed one hour later. (Patient not taking: Reported on 01/30/2022 ) Current Facility-Administered Medications Medication Dose Route Frequency perflutren lipid microspheres 1.3 mL in NaCl (PF) 0.9% 10 mL injection (DEFINITY) INTRAVENOUS DIRECTED PRN sodium chloride 0.9 % (flush) 10 mL (BD POSIFLUSH) 10 mL INTRAVENOUS DIRECTED PRN SOCIAL HISTORY Social History Tobacco Use Smoking status: Never Smoker Smokeless tobacco: Never Used Substance Use Topics Alcohol use: Yes Comment: 2-3 drinks/years Drug use: No REVIEW OF SYSTEMS See HPI OBJECTIVE: BP 122/80 Pulse 80 Temp 36.8 C (98.3 F) Resp 16 Wt 70.7 kg (155 lb 12.8 oz) SpO2 97% BMI 28.50 kg/m APPEARANCE Well appearing, alert, in no acute distress, well-hydrated, well nourished. EXTREMITIES No deformities, No skin discoloration, ERMIAS trace ankle edema and Normal pulses bilaterally. Sensation grossly intact distal to injury. Normal ROM ankles ERMIAS. Pain with extension and flexion of the right ankle. Strength intact. + TTP over anterior aspect of lateral and medial malleoli. + TTP ATFL. Good capillary refill. Able to bear weight and ambulate. No TTP achilles tendon insertion. Negative Leiva's. Negative squeeze test. ASSESSMENT/PLAN: 1. Ankle injury, initial encounter - ICD9: 959.7, ICD10: S99.919A No obvious fracture Suspect ankle sprain Aircast applied, instructions reviewed. Decided against crutches with balance. Will use walker at home prn Ice, rest, tylenol prn F/u in 5-7 days if not improving, sooner if worsening - XR ANKLE GENERAL 3V AP/LAT/OBL RIGHT The patient indicates understanding of these issues and agrees with the plan. Reviewed red flags and when to seek care sooner. Anu Pablo PA-C documented in this encounter [facility] 01-13-2022 Miscellaneous Notes Pt called and is notified of providers message and instructions. Pt voices understanding. She states she will stay off of it for a week and call back in to report how she is doing. Judith Renteria RN She can come in for a visit for evaluation if she would like. It is possible that is Lipitor however this is not a new medication so would seem less likely. For now would recommend holding Lipitor for 1 week and see how she feels off of the medication / if any improvement. Patient calls and states that she has been having a lot of muscle pain bad the past 3 weeks. Patient states that her body has been aching all over. Patient asking if provider thinks that Lipitor could be causing this? Patient had not taken medication for 4 days due to running out. Patient has noticed no difference in body aches. Please review and advise, Coby Reynolds RN documented in this encounter [facility] 01-08-2022 Miscellaneous Notes Okayed Patient has been identified by name and date of : Yes Last office visit in this department: 12-02 RX INSTRUCTIONS: Patient aware RX will be sent to pharmacy. No need to notify patient. Patient phones requesting refills as follows: No medications selected for refill. Please review and advise. Meche James documented in this encounter [facility] 01-02-2022 Miscellaneous Notes Patient has been identified by name and date of : Yes Last office visit in this department: 11/22/2021 RX INSTRUCTIONS: Patient aware RX will be sent to pharmacy. No need to notify patient. Patient phones requesting refills as follows: Pending Prescriptions Disp Refills ATORVASTATIN 20 MG TABLET 90 tablet 3 Sig: Take 1 tablet by mouth once daily. ABRAM: No Please review and advise. Clara Richmond documented in this encounter [facility] 12-21-2021 Nurse Note 0907 pt to ASCU, up to BR, incontinent of stool. Jennifer care and new brief given. Pt ambulates with assist. updated & @ BS. documented in this encounter [facility] 12-21-2021 History and physical note CHIEF COMPLAINT: Patient presents with: repeat egd: 2 year repeat. Abdominal Pain: upper mid abd past 6 months. Is treating it with Nexium Medication Problem: Nexium is no longer on her formulary This consult was requested by Alicia Yun MD for an opinion regarding Gonzales's esophagus 2-year surveillance EGD. My final recommendations will be communicated to the requesting health care provider by way of the shared medical record for internal providers or letter via the [employer] for external providers. Ana Ortega is a 81 year old female with a past medical history gastritis, Gonzales's esophagus, C. 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 The patient denies a family history of colon cancer..Who presents Gonzales's esophagus surveillance. Last colonoscopy 09/15/2019: Entire examined colon is normal no specimens collected Last EGD 09/15/2019-esophageal mucosal changes secondary to established long segment Gonzales's disease biopsy; cardio-oxyntic mucosa with no diagnostic abnormality. erythematous mucosa in the antrum biopsied; gastric antrum trial and oxyntic mucosa with chronic inactive gastritis negative for H. pylori. Normal duodenum Recommend upper endoscopy 2 years for surveillance HPI: Esomeprazole 40 mg patient received letter in the mail from insurance company Nexium no longer covered. Patient reports in the past she has tried Prevacid and pantoprazole and developed symptoms of diarrhea. We will trial omeprazole 40 mg once daily. She reports she always have epigastric pain. Denies heartburn, regurgitation, dysphagia nausea or vomiting. The patient denies change in bowel habits, denies black stool, rectal bleeding or abdominal pain. Having a bowel movement daily Record Review: [facility] / Outside records reviewed. PAST MEDICAL HISTORY PAST MEDICAL HISTORY Diagnosis Date Acute gastritis without mention of hemorrhage 10/31/2007 Adverse reaction to non-steroidal anti-inflammatory drug (NSAID) 03/28/2010 KATHERIN positive 03/04/2014 Gonzales's esophagus C. difficile diarrhea 10/18/2011 Cataract 04/17/2013 [facility], Dr. Dada Rodríguez. Mild cataract in L eye- no need for cataract surgery at this time. Continue to follow up the cataract. 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 At this time, we anticipate that the patient will be discharged home once clinically stable. Plan: - Discuss needs with patient. - Collaborate with Case management to facilitate DC process - Will continue to evaluate during the post op period. - Desat study 11/14/14: patient will need home oxygen (2 L with exertion only) - Discharge home today with home care for assistance with chest tube to Heimlich. [facility] Sunday[facility] removal . 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 A face to face encounter was performed during this hospital admission regarding the need for oxygen. The patient verbalized understanding and consents to this therapy. LVATS ODALIS Lobectomy 11/05/2014 74 year old [...] with heimlich -Pain management -Out of bed, cough, deep breathe, acapella, frequent ambulation. -Carb controlled diet . Migraines 11/11/2014 Orthostatic hypotension vasovagal syncope Osteoporosis, unspecified Snoring Tendonitis of ankle, right 05/03/2011 Type II or unspecified type diabetes mellitus without mention of complication, not stated as uncontrolled 02/07/2010 Urge urinary incontinence 12/16/2013 Variants of migraine, not elsewhere classified, without mention of intractable migraine without mention of status migrainosus PAST SURGICAL HISTORY PAST SURGICAL HISTORY Procedure Laterality Date ADENOIDECTOMY PRIMARY <AGE 12 Adenoidectomy CATARACT SURGERY, COMPLEX 04/2010 right eye COLONOSCOPY FLX DX W/COLLJ SPEC WHEN PFRMD 10/31/2007 Colonoscopy COLONOSCOPY FLX DX W/COLLJ SPEC WHEN PFRMD 09/15/2019 Colonoscopy EGD TRANSORAL BIOPSY SINGLE/MULTIPLE 11/01/09 EGD TRANSORAL BIOPSY SINGLE/MULTIPLE 11/23/11 ESOPHAGOGASTRODUODENOSCOPY TRANSORAL DIAGNOSTIC 08/09/2004 EGD ESOPHAGOGASTRODUODENOSCOPY TRANSORAL DIAGNOSTIC 10/31/2007 EGD ESOPHAGOGASTRODUODENOSCOPY TRANSORAL DIAGNOSTIC 11/28/13 EGD ESOPHAGOGASTRODUODENOSCOPY TRANSORAL DIAGNOSTIC 10/08/2014 EGD ESOPHAGOGASTRODUODENOSCOPY TRANSORAL DIAGNOSTIC 10/15/15 EGD ESOPHAGOGASTRODUODENOSCOPY TRANSORAL DIAGNOSTIC 09/10/2017 EGD ESOPHAGOGASTRODUODENOSCOPY TRANSORAL DIAGNOSTIC 09/15/2019 EGD LUNG SURGERY HX PAST SURGICAL HISTORY OF rotator cuff RMVL LUNG OTHER THAN PNEUMONECTOMY 1 LOBE LOBECT 11/09/2014 VATS left upper lobectomy TONSILLECTOMY PRIMARY/SECONDARY <AGE 12 Tonsillectomy Allergies: ALLERGIES ALLERGIES Allergen Reactions Adhesive Tape (Chapis* Hives Rash around bandaid never been tested for latex allergy Aspirin Contraindication-Medical Surgical GI bleed Boniva [Ibandronate] GI Upset Esophageal burning Carafate [Sucralfat* Other: See Comments feels poorly Ciprofloxacin Other: See Comments photosensitivity, dermatitis Codeine GI Upset Ibuprofen GI Upset Iodine Vomiting Lansoprazole Diarrhea Metformin Diarrhea Neosporin [Neomycin* Rash blisters Protonix [Pantopraz* Diarrhea Relafen [Nabumetone] GI Upset, Vomiting Actos [Pioglitazone* Swelling Medications: CURRENT MEDICATIONS LORazepam (ATIVAN) 1 mg tablet TAKE 1/2 TO 1 TABLET BY MOUTH EVERY DAY NEEDED FOR FOR ANXIETY metoprolol succinate ER (TOPROL XL) 200 mg 24 hr tablet Take 1 tablet by mouth once daily. pregabalin (LYRICA) 50 mg capsule Take 1 capsule by mouth twice daily for 180 days. insulin aspart U-100 (NOVOLOG FLEXPEN U-100 INSULIN) 100 unit/mL (3 mL) Inject 12 Units subcutaneously daily with breakfast AND 10 Units daily with lunch AND 12 Units daily with dinner. Adjust as directed. (Dr. Genny Munguia refills). TOVIAZ 4 mg Tb24 extended release tablet Take 4 mg by mouth once daily. For 30 days multivitamin-folic acid-biotin (USEO-QZLV-BHQNW, LL-ZE-VVEBZW,) 400-2,000 mcg tab Take by mouth. collagen, bovine, 100 % powd Apply to affected area. atorvastatin (LIPITOR) 20 mg tablet Take 1 tablet by mouth once daily. insulin glargine (LANTUS SOLOSTAR U-100 INSULIN) 100 unit/mL (3 mL) Inject 18 Units subcutaneously daily at bedtime. (Dr. Genny Munguia refills) sertraline (ZOLOFT) 50 mg tablet Take 1 tablet by mouth once daily. Cranberry-Vitamin C-Vitamin E (CRANBERRY PLUS VITAMIN C) 140-100 mg cap Patient takes Cranberry with Vitamin C capsule that contains 15,000 mg Cranberry and 100mg Vitamin C Biotin 2,500 mcg cap Nurse reports patient taking 1500 mcg dose once daily (cannot find 1500mcg dose on menu) mirabegron (MYRBETRIQ) 50 mg Tb24 Take 1 tablet by mouth twice daily. vit C/E/Zn/coppr/lutein/zeaxan (PRESERVISION AREDS-2 ORAL) Take by mouth twice daily. Cholecalciferol, Vitamin D3, 1,000 unit cap Take 2 capsules by mouth once daily. multivitamins(DAILY MULTIVITAMIN TAB) Take one(1) tablet daily. omeprazole (PRILOSEC) 40 mg capsule Take 1 capsule by mouth once daily. sertraline (ZOLOFT) 50 mg tablet Take 1 tablet by mouth once daily. CRANBERRY Insulin [place], Disposable, (EASY TOUCH) 31 gauge x 3/16 Use 1 needle for each dose. 4x daily Lancets lancets Micro-lancets to work with current meter - One touch. Sig: Test blood sugar(s) 2 times daily. Dx: Type 2 DM - Controlled E11.9 , Insulin: Yes ketoconazole (NIZORAL) 2 % cream Apply 1 application to affected area twice daily. Continue for 1 week after rash resolves. PREMARIN vaginal cream APPLY 0.5 GRAMS VAGINALLY BEFORE BED EVERY NIGHT FOR 14 DAYS THEN USE TWICE A WEEK FOR 3 MONTHS oxybutynin ER (DITROPAN XL) 10 mg 24 hr tablet Take 1 tablet by mouth twice daily. (Dr Don) Miscellaneous Medical Supply [facility] Custom Orthotics (E08.40, Z79.4) 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, with long-term current use of insulin blood sugar diagnostic (EASY TOUCH TEST STRIP) test strip Check blood sugars 2x per day and as needed Dx: E11.9 insulin: yes SUMAtriptan (IMITREX) 50 mg tablet Take 1 tablet by mouth. at onset of headache. May take another tablet as needed one hour later. COMPOUNDED PRESCRIPTION Custom orthotics (E08.40, Z79.4) 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, with long-term current use of insulin Lancets (ONETOUCH ULTRASOFT LANCETS) lancets Test blood sugar(s) 2 times daily. Dx: Type 2 DM - Controlled E11.9 , Insulin: Yes Lancets (EASY TOUCH LANCETS) lancets 1 Each twice daily. DX: 250.00 insulin FAMILY HISTORY FAMILY HISTORY Problem Relation Age of Onset Heart Mother Cancer Mother Mesothelioma Cancer Father LUNG Hypertension Maternal Grandfather Osteoporosis Sister Heart Brother congenital heart problems Breast Cancer Sister OCCUPATION & MARITAL STATUS Employer And Job Title: [employer] (Retired) Years Of Education Completed: Not specified Marital Status: to [facility] with 4 children SOCIAL HISTORY Social History Tobacco Use Smoking status: Never Smoker Smokeless tobacco: Never Used Substance Use Topics Alcohol use: Yes Comment: 2-3 drinks/years Drug use: No Review of Systems: Review of Systems Gastrointestinal: Positive for abdominal pain. All other systems reviewed and are negative. Are you taking any blood thinners? No Physical Examination: BP 128/66 Pulse 75 Ht 5' 2.598 (1.59m) Wt 153 lb (69.4kg) SpO2 99% BMI 27.45 kg/(m^2). Physical Exam Constitutional: Appearance: Normal appearance. She is normal weight. HENT: Head: Normocephalic and atraumatic. Eyes: Extraocular Movements: Extraocular movements intact. Pupils: Pupils are equal, round, and reactive to light. Cardiovascular: Rate and Rhythm: Normal rate and regular rhythm. Pulses: Normal pulses. Heart sounds: Normal heart sounds. Pulmonary: Effort: Pulmonary effort is normal. Breath sounds: Normal breath sounds. Abdominal: General: Abdomen is flat. Bowel sounds are normal. Palpations: Abdomen is soft. Tenderness: There is abdominal tenderness in the epigastric area. Musculoskeletal: General: Normal range of motion. Cervical back: Normal range of motion and neck supple. Skin: General: Skin is warm and dry. Neurological: General: No focal deficit present. Mental Status: She is alert and oriented to person, place, and time. Psychiatric: Mood and Affect: Mood normal. Behavior: Behavior normal. ASSESSMENT: History of gonzales's esophagus (primary encounter diagnosis) Epigastric pain PLAN: Assessment/Plan (Z87.19) History of Gonzales's esophagus (primary encounter diagnosis) (R10.13) Epigastric pain 1. History of Gonzales's esophagus - EGD DIAGNOSTIC -Start omeprazole 40 mg once daily. Patient was taking Nexium 40 mg once daily reports working well for her. Received a letter in the mail from insurance Nexium is no longer covered and to use alternative therapy. In the past she has tried Prevacid and pantoprazole and developed symptoms of diarrhea. 2. Epigastric pain - EGD DIAGNOSTIC Follow up in office 3 months/PRN. Recommended to please call office/go to ER if fever, chills, chest pain, SOB, diarrhea, nausea, emesis, worsening abdominal pain, dehydration occurs I spent 30 minutes in the visit, with more than 50% of the total [id number]-yw-jzhy time of the visit in counseling / coordination of care. I have confirmed and edited as necessary, the PFSH and ROS obtained by others. June Limon APRN.TRANSPORTATION ESCORT UPDATED HISTORY AND PHYSICAL EXAMINATION SERVICE DATE: 12/21/2021 SERVICE TIME: 7:11 AM PHYSICAL EXAM MUST BE COMPLETED ON ADMISSION The History and Physical (completed in the past 30 days) has been reviewed and the patient has been examined. The contents accurately reflect the patient's condition with the following additions or revisions since the H&P was completed. Examination indicates no changes. This H&P can be found in the attached. SIGNATURE: Erik Underwood III, MD PATIENT NAME: Ana Ortega DATE: December 21, 2021 TIME: 7:10 AM documented in this encounter [facility] 12-13-2021 Miscellaneous Notes Patient was updated, seen note below. Please tell the patient to stop her aspirin 1 week prior Pt called and is notified of providers message and instructions. Pt voices understanding. Let Pt know that she should call and verify with Dr Underwood as he is completing the surgery. Judith Renteria RN Typically aspirin and supplements are held for 7 days before procedures. Procedure is scheduled early in the day. May want to take medications afterwards. Routing to Dr Underwood as he is completing procedure.for his recommendations. Patient calls and states that she is having EGD done on 12/21/2021. Patient asking when should she start hold aspirin 81 mg? Patient also asking if she can take ativan and Toprol on the morning of procedure? Please review and advise, Coby Reynolds RN documented in this encounter [facility] 12-01-2021 Miscellaneous Notes PDMP website checked and validated. All prescriptions have been APPROPRIATELY filled. No suspicious activity was identified. 12/01/2021 by Clarence Berry APRN.ACCOUNTANT BOOKKEEPER Last seen pcp 11/22/21. Next 03/31/22. Patient has been identified by name and date of : Yes Pending Prescriptions Disp Refills LORAZEPAM 1 MG TABLET 30 tablet 2 Sig: TAKE 1/2 TO 1 TABLET BY MOUTH EVERY DAY NEEDED FOR FOR ANXIETY BULL Class: C-IV ABRAM: No RX INSTRUCTIONS: Patient aware RX will be sent to pharmacy. No need to notify patient. Libertad Burdick Pss documented in this encounter [facility] 11-22-2021 Instructions Alicia Yun MD - 11/22/2021 1:28 PM EDT Probiotics: Align, Culturelle, Florastor documented in this encounter [facility] 11-22-2021 History of Presen t illness Narrative This note was created using [employer]. Subjective Ana Ortega is a 81 year old female. Patient presents with: Follow Up SUBJECTIVE: Ana Ortega is a 81 year old year old lady here today for 4 month follow up appointment for review of medical conditions. Been sick in bed past 3 days. Thinks might be the antibiotic. Macrobid was given last Sunday and symptoms started with upset stomach, stomach pain, nausea, no vomiting, and headache. Also hurting all over. Fell over the weekend. Lost balance and fell over the tub. Using walker to get around now. Took just Nexium and lorazepam and held other meds. Stomach still hurts. Less queasy. Stopped macrobid after 3 doses. Called in Bactrim for ongoing UTI symptoms. Has been on in the past. Dr. Don (urologist) treating. Also needed cough syrup for as needed use. Uses at bedtime. Allergies worse this time of the year. Needed name of antihistamine used before. Noted history of C diff. Found probiotic given before. Asked about Covid Booster #2 Swelling even with stockings. [place] better but still would get tight. No prior water pills. Had episode of leaking when jeans caused thinned area and legs swollen. On SSI now. Reflux noted. Has adjustable bed. PAST MEDICAL HISTORY Diagnosis Date Acute gastritis without mention of hemorrhage 10/31/2007 Adverse reaction to non-steroidal anti-inflammatory drug (NSAID) 03/28/2010 KATHERIN positive 03/04/2014 Gonzales's esophagus C. difficile diarrhea 10/18/2011 Cataract 04/17/2013 [facility], Dr. Dada Rodríguez. Mild cataract in L eye- no need for cataract surgery at this time. Continue to follow up the cataract. 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 At this time, we anticipate that the patient will be discharged home once clinically stable. Plan: - Discuss needs with patient. - Collaborate with Case management to facilitate DC process - Will continue to evaluate during the post op period. - Desat study 11/14/14: patient will need home oxygen (2 L with exertion only) - Discharge home today with home care for assistance with chest tube to Heimlich. [facility] removal . 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 A face to face encounter was performed during this hospital admission regarding the need for oxygen. The patient verbalized understanding and consents to this therapy. LVATS ODALIS Lobectomy 11/05/2014 74 year old [...] with heimlich -Pain management -Out of bed, cough, deep breathe, acapella, frequent ambulation. -Carb controlled diet . Migraines 11/11/2014 Orthostatic hypotension vasovagal syncope Osteoporosis, unspecified Snoring Tendonitis of ankle, right 05/03/2011 Type II or unspecified type diabetes mellitus without mention of complication, not stated as uncontrolled 02/07/2010 Urge urinary incontinence 12/16/2013 Variants of migraine, not elsewhere classified, without mention of intractable migraine without mention of status migrainosus Current Outpatient Medications Medication Sig CRANBERRY VENTOLIN HFA 90 mcg/actuation inhaler INHALE 2 PUFFS BY MOUTH EVERY 6 HOURS NEEDED FOR SHORTNESS OF BREATH/WHEEZING esomeprazole (NEXIUM) 40 mg capsule Take 1 capsule by mouth DAILY (6 AM). pregabalin (LYRICA) 50 mg capsule Take 1 capsule by mouth twice daily for 180 days. sertraline (ZOLOFT) 50 mg tablet Take 1 tablet by mouth once daily. LORazepam (ATIVAN) 1 mg tablet TAKE 1/2 TO 1 TABLET BY MOUTH EVERY DAY NEEDED FOR FOR ANXIETY metoprolol succinate ER (TOPROL XL) 200 mg 24 hr tablet Take 1 tablet by mouth once daily. insulin aspart U-100 (NOVOLOG FLEXPEN U-100 INSULIN) 100 unit/mL (3 mL) Inject 12 Units subcutaneously daily with breakfast AND 10 Units daily with lunch AND 12 Units daily with dinner. Adjust as directed. (Dr. Genny Munguia refills). TOVIAZ 4 mg Tb24 extended release tablet Take 4 mg by mouth once daily. For 30 days multivitamin-folic acid-biotin (LCXR-QHOT-BHIKZ, NZ-BE-UNOGUZ,) 400-2,000 mcg tab Take by mouth. collagen, bovine, 100 % powd Apply to affected area. atorvastatin (LIPITOR) 20 mg tablet Take 1 tablet by mouth once daily. insulin glargine (LANTUS SOLOSTAR U-100 INSULIN) 100 unit/mL (3 mL) Inject 18 Units subcutaneously daily at bedtime. (Dr. Genny Munguia refills) sertraline (ZOLOFT) 50 mg tablet Take 1 tablet by mouth once daily. Insulin [place], Disposable, (EASY TOUCH) 31 gauge x 3/16 Use 1 needle for each dose. 4x daily Lancets lancets Micro-lancets to work with current meter - One touch. Sig: Test blood sugar(s) 2 times daily. Dx: Type 2 DM - Controlled E11.9 , Insulin: Yes ketoconazole (NIZORAL) 2 % cream Apply 1 application to affected area twice daily. Continue for 1 week after rash resolves. (Patient not taking: Reported on 11/29/2020 ) Cranberry-Vitamin C-Vitamin E (CRANBERRY PLUS VITAMIN C) 140-100 mg cap Patient takes Cranberry with Vitamin C capsule that contains 15,000 mg Cranberry and 100mg Vitamin C Biotin 2,500 mcg cap Nurse reports patient taking 1500 mcg dose once daily (cannot find 1500mcg dose on menu) mirabegron (MYRBETRIQ) 50 mg Tb24 Take 1 tablet by mouth twice daily. PREMARIN vaginal cream APPLY 0.5 GRAMS VAGINALLY BEFORE BED EVERY NIGHT FOR 14 DAYS THEN USE TWICE A WEEK FOR 3 MONTHS (Patient not taking: APPLY 0.5 GRAMS VAGINALLY BEFORE BED EVERY NIGHT FOR 14 DAYS THEN USE TWICE A WEEK FOR 3 MONTHS) oxybutynin ER (DITROPAN XL) 10 mg 24 hr tablet Take 1 tablet by mouth twice daily. (Dr Don) (Patient not taking: Reported on 09/19/2021 ) Miscellaneous Medical Supply [facility] [employer] Orth[employer] (E08.40, Z79.4) 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, with long-term current use of insulin blood sugar diagnostic (EASY TOUCH TEST STRIP) [...] (Patient not taking: Reported on 01/27/2020 ) COMPOUNDED PRESCRIPTION Custom orthotics (E08.40, Z79.4) 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, with long-term current use of insulin Lancets (ONETOUCH ULTRASOFT LANCETS) lancets Test blood sugar(s) 2 times daily. Dx: Type 2 DM - Controlled E11.9 , Insulin: Yes Lancets (EASY TOUCH LANCETS) lancets 1 Each twice daily. DX: 250.00 insulin multivitamins(DAILY MULTIVITAMIN TAB) Take one(1) tablet daily. Current Facility-Administered Medications Medication Dose Route Frequency perflutren lipid microspheres 1.3 mL in NaCl (PF) 0.9% 10 mL injection (DEFINITY) INTRAVENOUS DIRECTED PRN sodium chloride 0.9 % (flush) 10 mL (BD POSIFLUSH) 10 mL INTRAVENOUS DIRECTED PRN Review of Systems Objective BP 122/62 Pulse 82 Wt 67.6 kg (149 lb) BMI 26.73 kg/m Physical Exam Eyes: Conjunctiva/sclera: Conjunctivae normal. Cardiovascular: Heart sounds: Normal heart sounds. Pulmonary: Effort: Pulmonary effort is normal. Musculoskeletal: Right lower leg: Edema present. Left lower leg: Edema present. Skin: General: Skin is warm and dry. Neurological: General: No focal deficit present. Mental Status: She is alert and oriented to person, place, and time. Assessment and Plan ASSESSMENT/PLAN: 1. Urinary tract infection without hematuria, site unspecified - ICD9: 599.0, ICD10: N39.0 (primary diagnosis) Treated with Bactrim in place of Macrobid. Follow up with Dr. Don 2. Chronic cough - ICD9: 786.2, ICD10: R05.3 Discussed causes, including GERD Cough med helps, prn use: - CODEINE 10 MG-GUAIFENESIN 100 MG/5 ML ORAL LIQUID 3. Fall, initial encounter - ICD9: E888.9, ICD10: W19.XXXA Will use walker. Consider PT 4. Bilateral leg edema - ICD9: 782.3, ICD10: R60.0 Discussed treatment and prevention. Further evaluation and treatment as indicated. 5. 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, with long-term current use of insulin (HCC) - ICD9: 249.60, 357.2, V58.67, ICD10: E08.40, Z79.4 Further evaluation and treatment as indicated. - COMP METABOLIC PANEL - HGB A1C - ALBUMIN/CREAT RATIO RND UR 6. Vitamin D deficiency - ICD9: 268.9, ICD10: E55.9 - VITAMIN D 25 HYDROXY 7. Essential hypertension - ICD9: 401.9, ICD10: I10 - good control - Continue current medication(s) - Recommended regular aerobic exercise. - Recommend home blood pressure monitoring, to bring results in on next visit - Goal of BP <130/80 - COMP METABOLIC PANEL - CBC 8. Vitamin B6 deficiency - ICD9: 266.1, ICD10: E53.1 Adjust as needed - VITAMIN B6/PYRIDOXIN - VITAMIN B12 BLOOD 9. Encounter for long-term current use of medication - ICD9: V58.69, ICD10: Z79.899 - COMP METABOLIC PANEL - CBC - HGB A1C - MAGNESIUM BLD - VITAMIN B6/PYRIDOXIN - VITAMIN D 25 HYDROXY - VITAMIN B12 BLOOD - BASIC METABOLIC PNL 10. Stomach upset - ICD9: 536.8, ICD10: K30 Anticipate will improve off macrodantin and continue PPI. Further evaluation and treatment as indicated. 11. Gastroesophageal reflux disease, unspecified whether esophagitis present - ICD9: 530.81, ICD10: K21.9 - Continue PPI Alicia Yun MD documented in this encounter [facility] documented as of this encounter (statuses as of 12/01/2021) [facility]04-04-2015 History of Past illness Narrative* Problem Noted Date Resolved Date Hypoxia 11/14/2014 09/15/2016 Overview: Desat study done 11/14/14: Home oxygen needed (2 L/min via nasal cannula with exertion and while sleeping). A face to face encounter was performed during this hospital admission regarding the need for oxygen. The patient verbalized understanding and consents to this therapy. DVT prophylaxis 11/11/2014 08/15/2016 Overview: The pt is on Lovenox 40mg daily SC and SCD for VTE prophylaxis. No signs or symptoms of DVT/PE. The patient is at high risk for VTE. Plan: - Continue Lovenox 40mg daily SC - SCD/OMKAR - Encourage continued ambulation . DISPOSITION AND FOLLOW-UP 11/11/20142016 Overview: Ana Ortega is and lives in [place], [place]. At this time, we anticipate that the patient will be discharged home once clinically stable. Plan: - Discuss needs with patient. - Collaborate with Case management to facilitate DC process - Will continue to evaluate during the post op period. - Desat study 11/14/14: patient will need home oxygen (2 L with exertion only) - Discharge home today with home care for assistance with chest tube to [facility]. Return to OPD on Sunday11/18/[address] removal . Esophageal reflux 10/08/2014 10/08/2014 Cataract 04/17/2013 09/15/2016 Overview: [facility], Dr. Dada Rodríguez. Mild cataract in L eye- no need for cataract surgery at this time. Continue to follow up the cataract. C. difficile diarrhea 10/18/2011 09/15/2016 Tendonitis of ankle, right 05/03/201108/15 Pure hypercholesterolemia 12/14/20092014 Acute gastritis without mention of hemorrhage 09/15/2016 LUNG NODULE 09/05/2007 04/30/2015 Enlargement of lymph nodes 12/20/200608/15 Complete rupture of rotator cuff 03/03/2003 08/15/2016 Rotator cuff (capsule) sprain 01/10/2003 documented as of this encounter (statuses as of 12/13/2021) [facility]04-04-2015 History of Past illness Narrative* Problem Noted Date Resolved Date Hypoxia 11/14/2014 09/15/2016 Overview: Desat study done 11/14/14: Home oxygen needed (2 L/min via nasal cannula with exertion and while sleeping). A face to face encounter was performed during this hospital admission regarding the need for oxygen. The patient verbalized understanding and consents to this therapy. DVT prophylaxis 11/11/2014 08/15/2016 Overview: The pt is on Lovenox 40mg daily SC and SCD for VTE prophylaxis. No signs or symptoms of DVT/PE. The patient is at high risk for VTE. Plan: - Continue Lovenox 40mg daily SC - SCD/OMKAR - Encourage continued ambulation . DISPOSITION AND FOLLOW-UP 11/11/20142016 Overview: Ana Ortega is and lives in [place], [place]. At this time, we anticipate that the patient will be discharged home once clinically stable. Plan: - Discuss needs with patient. - Collaborate with Case management to facilitate DC process - Will continue to evaluate during the post op period. - Desat study 11/14/14: patient will need home oxygen (2 L with exertion only) - Discharge home today with home care for assistance with chest tube to [facility]. Return to OPD on Sunday11/18/[address] . Esophageal reflux 10/08/2014 10/08/2014 Cataract 04/17/2013 09/15/2016 Overview: [facility], Dr. Dada Rodríguez. Mild cataract in L eye- no need for cataract surgery at this time. Continue to follow up the cataract. C. difficile diarrhea 10/18/2011 09/15/2016 Tendonitis of ankle, right 05/03/201108/15 Pure hypercholesterolemia 12/14/20092014 Acute gastritis without mention of hemorrhage 09/15/2016 LUNG NODULE 09/05/2007 04/30/2015 Enlargement of lymph nodes 12/20/200608/15 Complete rupture of rotator cuff 03/03/2003 08/15/2016 Rotator cuff (capsule) sprain 01/10/2003 documented as of this encounter (statuses as of 12/22/2021) [facility]04-[facility]-2015 History of Past illness Narrative* Problem Noted Date Resolved Date Hypoxia 11/14/2014 09/15/2016 Overview: Desat study done 11/14/14: Home oxygen needed (2 L/min via nasal cannula with exertion and while sleeping). A face to face encounter was performed during this hospital admission regarding the need for oxygen. The patient verbalized understanding and consents to this therapy. DVT prophylaxis 11/11/2014 08/15/2016 Overview: The pt is on Lovenox 40mg daily SC and SCD for VTE prophylaxis. No signs or symptoms of DVT/PE. The patient is at high risk for VTE. Plan: - Continue Lovenox 40mg daily SC - SCD/OMKAR - Encourage continued ambulation . DISPOSITION AND FOLLOW-UP 11/11/20142016 Overview: Ana Ortega is and lives in [place], [place]. At this time, we anticipate that the patient will be discharged home once clinically stable. Plan: - Discuss needs with patient. - Collaborate with Case management to facilitate DC process - Will continue to evaluate during the post op period. - Desat study 11/14/14: patient will need home oxygen (2 L with exertion only) - Discharge home today with home care for assistance with chest tube to [facility]. Return to OPD on Sunday11/18/[address] removal . Esophageal reflux 10/08/2014 10/08/2014 Cataract 04/17/2013 09/15/2016 Overview: [facility], Dr. Dada Rodríguez. Mild cataract in L eye- no need for cataract surgery at this time. Continue to follow up the cataract. C. difficile diarrhea 10/18/2011 09/15/2016 Tendonitis of ankle, right 05/03/201108/15 Pure hypercholesterolemia 12/14/20092014 Acute gastritis without mention of hemorrhage 09/15/2016 LUNG NODULE 09/05/2007 04/30/2015 Enlargement of lymph nodes 12/20/200608/15 Complete rupture of rotator cuff 03/03/2003 08/15/2016 Rotator cuff (capsule) sprain 01/10/2003 documented as of this encounter (statuses as of 01/02/2022) [facility]04-[facility]-2015 History of Past illness Narrative* Problem Noted Date Resolved Date Hypoxia 11/14/2014 09/15/2016 Overview: Desat study done 11/14/14: Home oxygen needed (2 L/min via nasal cannula with exertion and while sleeping). A face to face encounter was performed during this hospital admission regarding the need for oxygen. The patient verbalized understanding and consents to this therapy. DVT prophylaxis 11/11/2014 08/15/2016 Overview: The pt is on Lovenox 40mg daily SC and SCD for VTE prophylaxis. No signs or symptoms of DVT/PE. The patient is at high risk for VTE. Plan: - Continue Lovenox 40mg daily SC - SCD/OMKAR - Encourage continued ambulation . DISPOSITION AND FOLLOW-UP 11/11/20142016 Overview: Ana Ortega is and lives in [place], [place]. At this time, we anticipate that the patient will be discharged home once clinically stable. Plan: - Discuss needs with patient. - Collaborate with Case management to facilitate DC process - Will continue to evaluate during the post op period. - Desat study 11/14/14: patient will need home oxygen (2 L with exertion only) - Discharge home today with home care for assistance with chest tube to [facility]. Return to OPD on Sunday11/18/[address] removal . Esophageal reflux 10/08/2014 10/08/2014 Cataract 04/17/2013 09/15/2016 Overview: [facility], Dr. Dada Rodríguez. Mild cataract in L eye- no need for cataract surgery at this time. Continue to follow up the cataract. C. difficile diarrhea 10/18/2011 09/15/2016 Tendonitis of ankle, right 05/03/201108/15 Pure hypercholesterolemia 12/14/20092014 Acute gastritis without mention of hemorrhage 09/15/2016 LUNG NODULE 09/05/2007 04/30/2015 Enlargement of lymph nodes 12/20/200608/15 Complete rupture of rotator cuff 03/03/2003 08/15/2016 Rotator cuff (capsule) sprain 01/10/2003 documented as of this encounter (statuses as of 01/08/2022) [facility]04-[facility]-2015 History of Past illness Narrative* Problem Noted Date Resolved Date Hypoxia 11/14/2014 09/15/2016 Overview: Desat study done 11/14/14: Home oxygen needed (2 L/min via nasal cannula with exertion and while sleeping). A face to face encounter was performed during this hospital admission regarding the need for oxygen. The patient verbalized understanding and consents to this therapy. DVT prophylaxis 11/11/2014 08/15/2016 Overview: The pt is on Lovenox 40mg daily SC and SCD for VTE prophylaxis. No signs or symptoms of DVT/PE. The patient is at high risk for VTE. Plan: - Continue Lovenox 40mg daily SC - SCD/OMKAR - Encourage continued ambulation . DISPOSITION AND FOLLOW-UP 11/11/20142016 Overview: Ana Ortega is and lives in [place], [place]. At this time, we anticipate that the patient will be discharged home once clinically stable. Plan: - Discuss needs with patient. - Collaborate with Case management to facilitate DC process - Will continue to evaluate during the post op period. - Desat study 11/14/14: patient will need home oxygen (2 L with exertion only) - Discharge home today with home care for assistance [facility]. Return to OPD on Sunday11/18/[address] removal . Esophageal reflux 10/08/2014 10/08/2014 Cataract 04/17/2013 09/15/2016 Overview: [facility], Dr. Dada Rodríguez. Mild cataract in L eye- no need for cataract surgery at this time. Continue to follow up the cataract. C. difficile diarrhea 10/18/2011 09/15/2016 Tendonitis of ankle, right 05/03/201108/15 Pure hypercholesterolemia 12/14/20092014 Acute gastritis without mention of hemorrhage 09/15/2016 LUNG NODULE 09/05/2007 04/30/2015 Enlargement of lymph nodes 12/20/200608/15 Complete rupture of rotator cuff 03/03/2003 08/15/2016 Rotator cuff (capsule) sprain 01/10/2003 documented as of this encounter (statuses as of 01/13/2022) [facility]04-[facility] History of Past illness Narrative* Problem Noted Date Resolved Date Hypoxia 11/14/2014 09/15/2016 Overview: Desat study done 11/14/14: Home oxygen needed (2 L/min via nasal cannula with exertion and while sleeping). A face to face encounter was performed during this hospital admission regarding the need for oxygen. The patient verbalized understanding and consents to this therapy. DVT prophylaxis 11/11/2014 08/15/2016 Overview: The pt is on Lovenox 40mg daily SC and SCD for VTE prophylaxis. No signs or symptoms of DVT/PE. The patient is at high risk for VTE. Plan: - Continue Lovenox 40mg daily SC - SCD/OMKAR - Encourage continued ambulation . DISPOSITION AND FOLLOW-UP 11/11/20142016 Overview: Ana Ortega is and lives in [place], [place]. At this time, we anticipate that the patient will be discharged home once clinically stable. Plan: - Discuss needs with patient. - Collaborate with Case management to facilitate DC process - Will continue to evaluate during the post op period. - Desat study 11/14/14: patient will need home oxygen (2 L with exertion only) - Discharge home today with home care for assistance with [facility] tube [facility]. Return to OPD on Sunday11/18/[address] . Esophageal reflux 10/08/2014 10/08/2014 Cataract 04/17/2013 09/15/2016 Overview: [facility], Dr. Dada Rodríguez. Mild cataract in L eye- no need for cataract surgery at this time. Continue to follow up the cataract. C. difficile diarrhea 10/18/2011 09/15/2016 Tendonitis of ankle, right 05/03/201108/15 Pure hypercholesterolemia 12/14/20092014 Acute gastritis without mention of hemorrhage 09/15/2016 LUNG NODULE 09/05/2007 04/30/2015 Enlargement of lymph nodes 12/20/200608/15 Complete rupture of rotator cuff 03/03/2003 08/15/2016 Rotator cuff (capsule) sprain 01/10/2003 documented as of this encounter (statuses as of 01/30/2022) [facility]04-[facility] History of Past illness Narrative* Problem Noted Date Resolved Date Hypoxia 11/14/2014 09/15/2016 Overview: Desat study done 11/14/14: Home oxygen needed (2 L/min via nasal cannula with exertion and while sleeping). A face to face encounter was performed during this hospital admission regarding the need for oxygen. The patient verbalized understanding and consents to this therapy. DVT prophylaxis 11/11/2014 08/15/2016 Overview: The pt is on Lovenox 40mg daily SC and SCD for VTE prophylaxis. No signs or symptoms of DVT/PE. The patient is at high risk for VTE. Plan: - Continue Lovenox 40mg daily SC - SCD/OMKAR - Encourage continued ambulation . DISPOSITION AND FOLLOW-UP 11/11/20142016 Overview: Ana Ortega is and lives in [place], [place]. At this time, we anticipate that the patient will be discharged home once clinically stable. Plan: - Discuss needs with patient. - Collaborate with Case management to facilitate DC process - Will continue to evaluate during the post op period. - Desat study 11/14/14: patient will need home oxygen (2 L with exertion only) - Discharge home today with home care for assistance with [facility] tube to [facility]. Return to OPD on Sunday11/18/[address] . Esophageal reflux 10/08/2014 10/08/2014 Cataract 04/17/2013 09/15/2016 Overview: [facility], Dr. Dada Rodríguez. Mild cataract in L eye- no need for cataract surgery at this time. Continue to follow up the cataract. C. difficile diarrhea 10/18/2011 09/15/2016 Tendonitis of ankle, right 05/03/201108/15 Pure hypercholesterolemia 12/14/20092014 Acute gastritis without mention of hemorrhage 09/15/2016 LUNG NODULE 09/05/2007 04/30/2015 Enlargement of lymph nodes 12/20/200608/15 Complete rupture of rotator cuff 03/03/2003 08/15/2016 Rotator cuff (capsule) sprain 01/10/2003 documented as of this encounter (statuses as of 02/05/2022) [facility]04-[facility] History of Past illness Narrative* Problem Noted Date Resolved Date Hypoxia 11/14/2014 09/15/2016 Overview: Desat study done 11/14/14: Home oxygen needed (2 L/min via nasal cannula with exertion and while sleeping). A face to face encounter was performed during this hospital admission regarding the need for oxygen. The patient verbalized understanding and consents to this therapy. DVT prophylaxis 11/11/2014 08/15/2016 Overview: The pt is on Lovenox 40mg daily SC and SCD for VTE prophylaxis. No signs or symptoms of DVT/PE. The patient is at high risk for VTE. Plan: - Continue Lovenox 40mg daily SC - SCD/OMKAR - Encourage continued ambulation . DISPOSITION AND FOLLOW-UP 11/11/20142016 Overview: Ana Ortega is and lives in [place]. At this time, we anticipate that the patient will be discharged home once clinically stable. Plan: - Discuss needs with patient. - Collaborate with Case management to facilitate DC process - Will continue to evaluate during the post op period. - Desat study 11/14/14: patient will need home oxygen (2 L with exertion only) - Discharge home today with home care for assistance with chest tube to [facility]. Return to [facility]PD on Sunday11/18/[address] . Esophageal reflux 10/08/2014 10/08/2014 Cataract 04/17/2013 09/15/2016 Overview: [facility], Dr. Dada Rodríguez. Mild cataract in L eye- no need for cataract surgery at this time. Continue to follow up the cataract. C. difficile diarrhea 10/18/2011 09/15/2016 Tendonitis of ankle, right 05/03/201108/15 Pure hypercholesterolemia 12/14/20092014 Acute gastritis without mention of hemorrhage 09/15/2016 LUNG NODULE 09/05/2007 04/30/2015 Enlargement of lymph nodes 12/20/200608/15 Complete rupture of rotator cuff 03/03/2003 08/15/2016 Rotator cuff (capsule) sprain 01/10/2003 documented as of this encounter (statuses as of 04/04/2022) [facility]04[facility] History of Past illness Narrative* Problem Noted Date Resolved Date Hypoxia 11/14/2014 09/15/2016 Overview: Desat study done 11/14/14: Home oxygen needed (2 L/min via nasal cannula with exertion and while sleeping). A face to face encounter was performed during this hospital admission regarding the need for oxygen. The patient verbalized understanding and consents to this therapy. DVT prophylaxis 11/11/2014 08/15/2016 Overview: The pt is on Lovenox 40mg daily SC and SCD for VTE prophylaxis. No signs or symptoms of DVT/PE. The patient is at high risk for VTE. Plan: - Continue Lovenox 40mg daily SC - SCD/OMKAR - Encourage continued ambulation . DISPOSITION AND FOLLOW-UP 11/11/20142016 Overview: Ana Ortega is and lives in [place]. At this time, we anticipate that the patient will be discharged home once clinically stable. Plan: - Discuss needs with patient. - Collaborate with Case management to facilitate DC process - Will continue to evaluate during the post op period. - Desat study 11/14/14: patient will need home oxygen (2 L with exertion only) - Discharge home today with home care for assistance with chest tube to [facility]. Return to OPD on Sunday11/18/[address] . Esophageal reflux 10/08/2014 10/08/2014 Cataract 04/17/2013 09/15/2016 Overview: [facility], Dr. Dada Rodríguez. Mild cataract in L eye- no need for cataract surgery at this time. Continue to follow up the cataract. C. difficile diarrhea 10/18/2011 09/15/2016 Tendonitis of ankle, right 05/03/201108/15 Pure hypercholesterolemia 12/14/20092014 Acute gastritis without mention of hemorrhage 09/15/2016 LUNG NODULE 09/05/2007 04/30/2015 Enlargement of lymph nodes 12/20/200608/15 Complete rupture of rotator cuff 03/03/2003 08/15/2016 Rotator cuff (capsule) sprain 01/10/2003 documented as of this encounter (statuses as of 04/19/2022) [facility]04[facility] History of Past illness Narrative* Problem Noted Date Resolved Date Hypoxia 11/14/2014 09/15/2016 Overview: Desat study done 11/14/14: Home oxygen needed (2 L/min via nasal cannula with exertion and while sleeping). A face to face encounter was performed during this hospital admission regarding the need for oxygen. The patient verbalized understanding and consents to this therapy. DVT prophylaxis 11/11/2014 08/15/2016 Overview: The pt is on Lovenox 40mg daily SC and SCD for VTE prophylaxis. No signs or symptoms of DVT/PE. The patient is at high risk for VTE. Plan: - Continue Lovenox 40mg daily SC - SCD/OMKAR - Encourage continued ambulation . DISPOSITION AND FOLLOW-UP 11/11/20142016 Overview: Ana Ortega is and lives in [place]. At this time, we anticipate that the patient will be discharged home once clinically stable. Plan: - Discuss needs with patient. - Collaborate with Case management to facilitate DC process - Will continue to evaluate during the post op period. - Desat study 11/14/14: patient will need home oxygen (2 L with exertion only) - Discharge home today with home care for assistance with [facility] tube [facility]. Return to OPD on Sunday11/18/[address] . Esophageal reflux 10/08/2014 10/08/2014 Cataract 04/17/2013 09/15/2016 Overview: [facility], Dr. Dada Rodríguez. Mild cataract in L eye- no need for cataract surgery at this time. Continue to follow up the cataract. C. difficile diarrhea 10/18/2011 09/15/2016 Tendonitis of ankle, right 05/03/201108/15 Pure hypercholesterolemia 12/14/20092014 Acute gastritis without mention of hemorrhage 09/15/2016 LUNG NODULE 09/05/2007 04/30/2015 Enlargement of lymph nodes 12/20/200608/15 Complete rupture of rotator cuff 03/03/2003 08/15/2016 Rotator cuff (capsule) sprain 01/10/2003 documented as of this encounter (statuses as of 05/02/2022) [facility] History of Past illness Narrative* Problem Noted Date Resolved Date Hypoxia 11/14/2014 09/15/2016 Overview: Desat study done 11/14/14: Home oxygen needed (2 L/min via nasal cannula with exertion and while sleeping). A face to face encounter was performed during this hospital admission regarding the need for oxygen. The patient verbalized understanding and consents to this therapy. DVT prophylaxis 11/11/2014 08/15/2016 Overview: The pt is on Lovenox 40mg daily SC and SCD for VTE prophylaxis. No signs or symptoms of DVT/PE. The patient is at high risk for VTE. Plan: - Continue Lovenox 40mg daily SC - SCD/OMKAR - Encourage continued ambulation . DISPOSITION AND FOLLOW-UP 11/11/20142016 Overview: Ana Ortega is and lives in [place], [place]. At this time, we anticipate that the patient will be discharged home once clinically stable. Plan: - Discuss needs with patient. - Collaborate with Case management to facilitate DC process - Will continue to evaluate during the post op period. - Desat study 11/14/14: patient will need home oxygen (2 L with exertion only) - Discharge home today with home care for assistance with chest tube to [facility]. Return to OPD on Sunday11/18/[address] . Esophageal reflux 10/08/2014 10/08/2014 Cataract 04/17/2013 09/15/2016 Overview: [facility], Dr. Dada Rodríguez. Mild cataract in L eye- no need for cataract surgery at this time. Continue to follow up the cataract. C. difficile diarrhea 10/18/2011 09/15/2016 Tendonitis of ankle, right 05/03/201108/15 Pure hypercholesterolemia 12/14/20092014 Acute gastritis without mention of hemorrhage 09/15/2016 LUNG NODULE 09/05/2007 04/30/2015 Enlargement of lymph nodes 12/20/200608/15 Complete rupture of rotator cuff 03/03/2003 08/15/2016 Rotator cuff (capsule) sprain 01/10/2003 documented as of this encounter (statuses as of 05/15/2022) [facility] History of Past illness Narrative* Problem Noted Date Resolved Date Hypoxia 11/14/2014 09/15/2016 Overview: Desat study done 11/14/14: Home oxygen needed (2 L/min via nasal cannula with exertion and while sleeping). A face to face encounter was performed during this hospital admission regarding the need for oxygen. The patient verbalized understanding and consents to this therapy. DVT prophylaxis 11/11/2014 08/15/2016 Overview: The pt is on Lovenox 40mg daily SC and SCD for VTE prophylaxis. No signs or symptoms of DVT/PE. The patient is at high risk for VTE. Plan: - Continue Lovenox 40mg daily SC - SCD/OMKAR - Encourage continued ambulation . DISPOSITION AND FOLLOW-UP 11/11/20142016 Overview: Ana Ortega is and lives in [place], [place]. At this time, we anticipate that the patient will be discharged home once clinically stable. Plan: - Discuss needs with patient. - Collaborate with Case management to facilitate DC process - Will continue to evaluate during the post op period. - Desat study 11/14/14: patient will need home oxygen (2 L with exertion only) - Discharge home today with home care for assistance with chest tube to [facility]. Return to [facility]PD on Sunday11/18/[address] removal . Esophageal reflux 10/08/2014 10/08/2014 Cataract 04/17/2013 09/15/2016 Overview: [facility], Dr. Dada Rodríguez. Mild cataract in L eye- no need for cataract surgery at this time. Continue to follow up the cataract. C. difficile diarrhea 10/18/2011 09/15/2016 Tendonitis of ankle, right 05/03/201108/15 Pure hypercholesterolemia 12/14/20092014 Acute gastritis without mention of hemorrhage 09/15/2016 LUNG NODULE 09/05/2007 04/30/2015 Enlargement of lymph nodes 12/20/200608/15 Complete rupture of rotator cuff 03/03/2003 08/15/2016 Rotator cuff (capsule) sprain 01/10/2003 documented as of this encounter (statuses as of 05/16/2022) [facility]04-04-2015 History of Past illness Narrative* Problem Noted Date Resolved Date Hypoxia 11/14/2014 09/15/2016 Overview: Desat study done 11/14/14: Home oxygen needed (2 L/min via nasal cannula with exertion and while sleeping). A face to face encounter was performed during this hospital admission regarding the need for oxygen. The patient verbalized understanding and consents to this therapy. DVT prophylaxis 11/11/2014 08/15/2016 Overview: The pt is on Lovenox 40mg daily SC and SCD for VTE prophylaxis. No signs or symptoms of DVT/PE. The patient is at high risk for VTE. Plan: - Continue Lovenox 40mg daily SC - SCD/OMKAR - Encourage continued ambulation . DISPOSITION AND FOLLOW-UP 11/11/20142016 Overview: Ana Ortega is and lives in [place], [place]. At this time, we anticipate that the patient will be discharged home once clinically stable. Plan: - Discuss needs with patient. - Collaborate with Case management to facilitate DC process - Will continue to evaluate during the post op period. - Desat study 11/14/14: patient will need home oxygen (2 L with exertion only) - Discharge home today with home care for assistance with chest tube to [facility]. Return to OPD on Sunday11/18/[address] removal . Esophageal reflux 10/08/2014 10/08/2014 Cataract 04/17/2013 09/15/2016 Overview: [facility], Dr. Dada Rodríguez. Mild cataract in L eye- no need for cataract surgery at this time. Continue to follow up the cataract. C. difficile diarrhea 10/18/2011 09/15/2016 Tendonitis of ankle, right 05/03/201108/15 Pure hypercholesterolemia 12/14/20092014 Acute gastritis without mention of hemorrhage 09/15/2016 LUNG NODULE 09/05/2007 04/30/2015 Enlargement of lymph nodes 12/20/200608/15 Complete rupture of rotator cuff 03/03/2003 08/15/2016 Rotator cuff (capsule) sprain 01/10/2003 documented as of this encounter (statuses as of 05/17/2022) [facility]04-04-2015 History of Past illness Narrative* Problem Noted Date Resolved Date Hypoxia 11/14/2014 09/15/2016 Overview: Desat study done 11/14/14: Home oxygen needed (2 L/min via nasal cannula with exertion and while sleeping). A face to face encounter was performed during this hospital admission regarding the need for oxygen. The patient verbalized understanding and consents to this therapy. DVT prophylaxis 11/11/2014 08/15/2016 Overview: The pt is on Lovenox 40mg daily SC and SCD for VTE prophylaxis. No signs or symptoms of DVT/PE. The patient is at high risk for VTE. Plan: - Continue Lovenox 40mg daily SC - SCD/OMKAR - Encourage continued ambulation . DISPOSITION AND FOLLOW-UP 11/11/20142016 Overview: Ana Ortega is and lives in [place], [place]. At this time, we anticipate that the patient will be discharged home once clinically stable. Plan: - Discuss needs with patient. - Collaborate with Case management to facilitate DC process - Will continue to evaluate during the post op period. - Desat study 11/14/14: patient will need home oxygen (2 L with exertion only) - Discharge home today with home care for assistance with chest tube to [facility]. Return to [facility]PD on Sunday11/18/[address] removal . Esophageal reflux 10/08/2014 10/08/2014 Cataract 04/17/2013 09/15/2016 Overview: [facility], Dr. Dada Rodríguze. Mild cataract in L eye- no need for cataract surgery at this time. Continue to follow up the cataract. C. difficile diarrhea 10/18/2011 09/15/2016 Tendonitis of ankle, right 05/03/201108/15 Pure hypercholesterolemia 12/14/20092014 Acute gastritis without mention of hemorrhage 09/15/2016 LUNG NODULE 09/05/2007 04/30/2015 Enlargement of lymph nodes 12/20/200608/15 Complete rupture of rotator cuff 03/03/2003 08/15/2016 Rotator cuff (capsule) sprain 01/10/2003 documented as of this encounter (statuses as of 05/30/2022) [facility]04-04-2015 History of Past illness Narrative* Problem Noted Date Resolved Date Hypoxia 11/14/2014 09/15/2016 Overview: Desat study done 11/14/14: Home oxygen needed (2 L/min via nasal cannula with exertion and while sleeping). A face to face encounter was performed during this hospital admission regarding the need for oxygen. The patient verbalized understanding and consents to this therapy. DVT prophylaxis 11/11/2014 08/15/2016 Overview: The pt is on Lovenox 40mg daily SC and SCD for VTE prophylaxis. No signs or symptoms of DVT/PE. The patient is at high risk for VTE. Plan: - Continue Lovenox 40mg daily SC - SCD/OMKAR - Encourage continued ambulation . DISPOSITION AND FOLLOW-UP 11/11/20142016 Overview: Ana Ortega is and lives in [place], [place]. At this time, we anticipate that the patient will be discharged home once clinically stable. Plan: - Discuss needs with patient. - Collaborate with Case management to facilitate DC process - Will continue to evaluate during the post op period. - Desat study 11/14/14: patient will need home oxygen (2 L with exertion only) - Discharge home today with home care for assistance with chest tube to [facility]. Return to [facility]PD on Sunday11/18/[address] removal . Esophageal reflux 10/08/2014 10/08/2014 Cataract 04/17/2013 09/15/2016 Overview: [facility], Dr. Dada Rodríguez. Mild cataract in L eye- no need for cataract surgery at this time. Continue to follow up the cataract. C. difficile diarrhea 10/18/2011 09/15/2016 Tendonitis of ankle, right 05/03/201108/15 Pure hypercholesterolemia 12/14/20092014 Acute gastritis without mention of hemorrhage 09/15/2016 LUNG NODULE 09/05/2007 04/30/2015 Enlargement of lymph nodes 12/20/200608/15 Complete rupture of rotator cuff 03/03/2003 08/15/2016 Rotator cuff (capsule) sprain 01/10/2003 documented as of this encounter (statuses as of 05/31/2022) [facility]04-04-2015 History of Past illness Narrative* Problem Noted Date Resolved Date Hypoxia 11/14/2014 09/15/2016 Overview: Desat study done 11/14/14: Home oxygen needed (2 L/min via nasal cannula with exertion and while sleeping). A face to face encounter was performed during this hospital admission regarding the need for oxygen. The patient verbalized understanding and consents to this therapy. DVT prophylaxis 11/11/2014 08/15/2016 Overview: The pt is on Lovenox 40mg daily SC and SCD for VTE prophylaxis. No signs or symptoms of DVT/PE. The patient is at high risk for VTE. Plan: - Continue Lovenox 40mg daily SC - SCD/OMKAR - Encourage continued ambulation . DISPOSITION AND FOLLOW-UP 11/11/20142016 Overview: Ana Ortega is and lives in [place], [place]. At this time, we anticipate that the patient will be discharged home once clinically stable. Plan: - Discuss needs with patient. - Collaborate with Case management to facilitate DC process - Will continue to evaluate during the post op period. - Desat study 11/14/14: patient will need home oxygen (2 L with exertion only) - Discharge home today with home care for assistance with chest tube to [facility]. Return to OPD on Sunday11/18/[address] removal . Esophageal reflux 10/08/2014 10/08/2014 Cataract 04/17/2013 09/15/2016 Overview: [facility], Dr. Dada Rodríguez. Mild cataract in L eye- no need for cataract surgery at this time. Continue to follow up the cataract. C. difficile diarrhea 10/18/2011 09/15/2016 Tendonitis of ankle, right 05/03/201108/15 Pure hypercholesterolemia 12/14/20092014 Acute gastritis without mention of hemorrhage 09/15/2016 LUNG NODULE 09/05/2007 04/30/2015 Enlargement of lymph nodes 12/20/200608/15 Complete rupture of rotator cuff 03/03/2003 08/15/2016 Rotator cuff (capsule) sprain 01/10/2003 documented as of this encounter (statuses as of 06/16/2022) [facility]04-04-2015 History of Past illness Narrative* Problem Noted Date Resolved Date Hypoxia 11/14/2014 09/15/2016 Overview: Desat study done 11/14/14: Home oxygen needed (2 L/min via nasal cannula with exertion and while sleeping). A face to face encounter was performed during this hospital admission regarding the need for oxygen. The patient verbalized understanding and consents to this therapy. DVT prophylaxis 11/11/2014 08/15/2016 Overview: The pt is on Lovenox 40mg daily SC and SCD for VTE prophylaxis. No signs or symptoms of DVT/PE. The patient is at high risk for VTE. Plan: - Continue Lovenox 40mg daily SC - SCD/OMKAR - Encourage continued ambulation . DISPOSITION AND FOLLOW-UP 11/11/20142016 Overview: Ana Ortega is and lives in [place], [place]. At this time, we anticipate that the patient will be discharged home once clinically stable. Plan: - Discuss needs with patient. - Collaborate with Case management to facilitate DC process - Will continue to evaluate during the post op period. - Desat study 11/14/14: patient will need home oxygen (2 L with exertion only) - Discharge home today with home care for assistance [facility]. Return to [facility]PD on Sunday11/18/[address] removal . Esophageal reflux 10/08/2014 10/08/2014 Cataract 04/17/2013 09/15/2016 Overview: [facility], Dr. Dada Rodríguez. Mild cataract in L eye- no need for cataract surgery at this time. Continue to follow up the cataract. C. difficile diarrhea 10/18/2011 09/15/2016 Tendonitis of ankle, right 05/03/201108/15 Pure hypercholesterolemia 12/14/20092014 Acute gastritis without mention of hemorrhage 09/15/2016 LUNG NODULE 09/05/2007 04/30/2015 Enlargement of lymph nodes 12/20/200608/15 Complete rupture of rotator cuff 03/03/2003 08/15/2016 Rotator cuff (capsule) sprain 01/10/2003 documented as of this encounter (statuses as of 06/16/2022) [facility]04-04-2015 History of Past illness Narrative* Problem Noted Date Resolved Date Hypoxia 11/14/2014 09/15/2016 Overview: Desat study done 11/14/14: Home oxygen needed (2 L/min via nasal cannula with exertion and while sleeping). A face to face encounter was performed during this hospital admission regarding the need for oxygen. The patient verbalized understanding and consents to this therapy. DVT prophylaxis 11/11/2014 08/15/2016 Overview: The pt is on Lovenox 40mg daily SC and SCD for VTE prophylaxis. No signs or symptoms of DVT/PE. The patient is at high risk for VTE. Plan: - Continue Lovenox 40mg daily SC - SCD/OMKAR - Encourage continued ambulation . DISPOSITION AND FOLLOW-UP 11/11/20142016 Overview: Ana Ortega is and lives in [place], [place]. At this time, we anticipate that the patient will be discharged home once clinically stable. Plan: - Discuss needs with patient. - Collaborate with Case management to facilitate DC process - Will continue to evaluate during the post op period. - Desat study 11/14/14: patient will need home oxygen (2 L with exertion only) - Discharge home today with home care for assistance with chest tube to [facility]. Return to OPD on Sunday11/18/[address] . Esophageal reflux 10/08/2014 10/08/2014 Cataract 04/17/2013 09/15/2016 Overview: [facility], Dr. Dada Rodríguez. Mild cataract in L eye- no need for cataract surgery at this time. Continue to follow up the cataract. C. difficile diarrhea 10/18/2011 09/15/2016 Tendonitis of ankle, right 05/03/201108/15 Pure hypercholesterolemia 12/14/20092014 Acute gastritis without mention of hemorrhage 09/15/2016 LUNG NODULE 09/05/2007 04/30/2015 Enlargement of lymph nodes 12/20/200608/15 Complete rupture of rotator cuff 03/03/2003 08/15/2016 Rotator cuff (capsule) sprain 01/10/2003 documented as of this encounter (statuses as of 06/28/2022) [facility]04-04-2015 History of Past illness Narrative* Problem Noted Date Resolved Date Hypoxia 11/14/2014 09/15/2016 Overview: Desat study done 11/14/14: Home oxygen needed (2 L/min via nasal cannula with exertion and while sleeping). A face to face encounter was performed during this hospital admission regarding the need for oxygen. The patient verbalized understanding and consents to this therapy. DVT prophylaxis 11/11/2014 08/15/2016 Overview: The pt is on Lovenox 40mg daily SC and SCD for VTE prophylaxis. No signs or symptoms of DVT/PE. The patient is at high risk for VTE. Plan: - Continue Lovenox 40mg daily SC - SCD/OMKAR - Encourage continued ambulation . DISPOSITION AND FOLLOW-UP 11/11/20142016 Overview: Ana Ortega is and lives in [place]. At this time, we anticipate that the patient will be discharged home once clinically stable. Plan: - Discuss needs with patient. - Collaborate with Case management to facilitate DC process - Will continue to evaluate during the post op period. - Desat study 11/14/14: patient will need home oxygen (2 L with exertion only) - Discharge home today with home care for assistance with chest tube to [facility]. Return to [facility]PD on Sunday11/18/[address] removal . Esophageal reflux 10/08/2014 10/08/2014 Cataract 04/17/2013 09/15/2016 Overview: [facility], Dr. Dada Rodríguez. Mild cataract in L eye- no need for cataract surgery at this time. Continue to follow up the cataract. C. difficile diarrhea 10/18/2011 09/15/2016 Tendonitis of ankle, right 05/03/201108/15 Pure hypercholesterolemia 12/14/20092014 Acute gastritis without mention of hemorrhage 09/15/2016 LUNG NODULE 09/05/2007 04/30/2015 Enlargement of lymph nodes 12/20/200608/15 Complete rupture of rotator cuff 03/03/2003 08/15/2016 Rotator cuff (capsule) sprain 01/10/2003 documented as of this encounter (statuses as of 08/02/2022) [facility]04-[facility]2015 History of Past illness Narrative* Problem Noted Date Resolved Date Hypoxia 11/14/2014 09/15/2016 Overview: Desat study done 11/14/14: Home oxygen needed (2 L/min via nasal cannula with exertion and while sleeping). A face to face encounter was performed during this hospital admission regarding the need for oxygen. The patient verbalized understanding and consents to this therapy. DVT prophylaxis 11/11/2014 08/15/2016 Overview: The pt is on Lovenox 40mg daily SC and SCD for VTE prophylaxis. No signs or symptoms of DVT/PE. The patient is at high risk for VTE. Plan: - Continue Lovenox 40mg daily SC - SCD/OMKAR - Encourage continued ambulation . DISPOSITION AND FOLLOW-UP 11/11/20142016 Overview: Ana Ortega is and lives in [place]. At this time, we anticipate that the patient will be discharged home once clinically stable. Plan: - Discuss needs with patient. - Collaborate with Case management to facilitate DC process - Will continue to evaluate during the post op period. - Desat study 11/14/14: patient will need home oxygen (2 L with exertion only) - Discharge home today with home care for assistance [facility]. Return to [facility]PD on Sunday11/18/[address] removal . Esophageal reflux 10/08/2014 10/08/2014 Cataract 04/17/2013 09/15/2016 Overview: [facility], Dr. Dada Rodríguez. Mild cataract in L eye- no need for cataract surgery at this time. Continue to follow up the cataract. C. difficile diarrhea 10/18/2011 09/15/2016 Tendonitis of ankle, right 05/03/201108/15 Pure hypercholesterolemia 12/14/20092014 Acute gastritis without mention of hemorrhage 09/15/2016 LUNG NODULE 09/05/2007 04/30/2015 Enlargement of lymph nodes 12/20/200608/15 Complete rupture of rotator cuff 03/03/2003 08/15/2016 Rotator cuff (capsule) sprain 01/10/2003 documented as of this encounter (statuses as of 08/23/2022) [facility]04-[facility]2015 History of Past illness Narrative* Problem Noted Date Resolved Date Hypoxia 11/14/2014 09/15/2016 Overview: Desat study done 11/14/14: Home oxygen needed (2 L/min via nasal cannula with exertion and while sleeping). A face to face encounter was performed during this hospital admission regarding the need for oxygen. The patient verbalized understanding and consents to this therapy. DVT prophylaxis 11/11/2014 08/15/2016 Overview: The pt is on Lovenox 40mg daily SC and SCD for VTE prophylaxis. No signs or symptoms of DVT/PE. The patient is at high risk for VTE. Plan: - Continue Lovenox 40mg daily SC - SCD/OMKAR - Encourage continued ambulation . DISPOSITION AND FOLLOW-UP 11/11/20142016 Overview: Ana Ortega is and lives in [place]. At this time, we anticipate that the patient will be discharged home once clinically stable. Plan: - Discuss needs with patient. - Collaborate with Case management to facilitate DC process - Will continue to evaluate during the post op period. - Desat study 11/14/14: patient will need home oxygen (2 L with exertion only) - Discharge home today with home care for assistance with [facility]. Return to [facility]PD on Sunday11/18/[address] . Esophageal reflux 10/08/2014 10/08/2014 Cataract 04/17/2013 09/15/2016 Overview: [facility], Dr. Dada Rodríguez. Mild cataract in L eye- no need for cataract surgery at this time. Continue to follow up the cataract. C. difficile diarrhea 10/18/2011 09/15/2016 Tendonitis of ankle, right 05/03/201108/15 Pure hypercholesterolemia 12/14/20092014 Acute gastritis without mention of hemorrhage 09/15/2016 LUNG NODULE 09/05/2007 04/30/2015 Enlargement of lymph nodes 12/20/200608/15 Complete rupture of rotator cuff 03/03/2003 08/15/2016 Rotator cuff (capsule) sprain 01/10/2003 documented as of this encounter (statuses as of 09/30/2022) [facility]04[facility]2015 History of Past illness Narrative* Problem Noted Date Resolved Date Hypoxia 11/14/2014 09/15/2016 Overview: Desat study done 11/14/14: Home oxygen needed (2 L/min via nasal cannula with exertion and while sleeping). A face to face encounter was performed during this hospital admission regarding the need for oxygen. The patient verbalized understanding and consents to this therapy. DVT prophylaxis 11/11/2014 08/15/2016 Overview: The pt is on Lovenox 40mg daily SC and SCD for VTE prophylaxis. No signs or symptoms of DVT/PE. The patient is at high risk for VTE. Plan: - Continue Lovenox 40mg daily SC - SCD/OMKAR - Encourage continued ambulation . DISPOSITION AND FOLLOW-UP 11/11/20142016 Overview: Ana Ortega is and lives in [place]. At this time, we anticipate that the patient will be discharged home once clinically stable. Plan: - Discuss needs with patient. - Collaborate with Case management to facilitate DC process - Will continue to evaluate during the post op period. - Desat study 11/14/14: patient will need home oxygen (2 L with exertion only) - Discharge home today with home care for assistance with chest tube to [facility]. Return to OPD on Sunday11/18/[address] . Esophageal reflux 10/08/2014 10/08/2014 Cataract 04/17/2013 09/15/2016 Overview: [facility], Dr. Dada Rodríguez. Mild cataract in L eye- no need for cataract surgery at this time. Continue to follow up the cataract. C. difficile diarrhea 10/18/2011 09/15/2016 Tendonitis of ankle, right 05/03/201108/15 Pure hypercholesterolemia 12/14/20092014 Acute gastritis without mention of hemorrhage 09/15/2016 LUNG NODULE 09/05/2007 04/30/2015 Enlargement of lymph nodes 12/20/200608/15 Complete rupture of rotator cuff 03/03/2003 08/15/2016 Rotator cuff (capsule) sprain 01/10/2003 documented as of this encounter (statuses as of 10/10/2022) [facility] History of Past illness Narrative* Problem Noted Date Resolved Date Hypoxia 11/14/2014 09/15/2016 Overview: Desat study done 11/14/14: Home oxygen needed (2 L/min via nasal cannula with exertion and while sleeping). A face to face encounter was performed during this hospital admission regarding the need for oxygen. The patient verbalized understanding and consents to this therapy. DVT prophylaxis 11/11/2014 08/15/2016 Overview: The pt is on Lovenox 40mg daily SC and SCD for VTE prophylaxis. No signs or symptoms of DVT/PE. The patient is at high risk for VTE. Plan: - Continue Lovenox 40mg daily SC - SCD/OMKAR - Encourage continued ambulation . DISPOSITION AND FOLLOW-UP 11/11/20142016 Overview: Ana Ortega is and lives in [place]. At this time, we anticipate that the patient will be discharged home once clinically stable. Plan: - Discuss needs with patient. - Collaborate with Case management to facilitate DC process - Will continue to evaluate during the post op period. - Desat study 11/14/14: patient will need home oxygen (2 L with exertion only) - Discharge home today with home care for assistance with chest tube to [facility]. Return to [facility] on Sunday11/18/[address] removal . Esophageal reflux 10/08/2014 10/08/2014 Cataract 04/17/2013 09/15/2016 Overview: [facility], Dr. Dada Rodríguez. Mild cataract in L eye- no need for cataract surgery at this time. Continue to follow up the cataract. C. difficile diarrhea 10/18/2011 09/15/2016 Tendonitis of ankle, right 05/03/201108/15 Pure hypercholesterolemia 12/14/20092014 Acute gastritis without mention of hemorrhage 09/15/2016 LUNG NODULE 09/05/2007 04/30/2015 Enlargement of lymph nodes 12/20/200608/15 Complete rupture of rotator cuff 03/03/2003 08/15/2016 Rotator cuff (capsule) sprain 01/10/2003 documented as of this encounter (statuses as of 10/12/2022) [facility] History of Past illness Narrative* Problem Noted Date Resolved Date Hypoxia 11/14/2014 09/15/2016 Overview: Desat study done 11/14/14: Home oxygen needed (2 L/min via nasal cannula with exertion and while sleeping). A face to face encounter was performed during this hospital admission regarding the need for oxygen. The patient verbalized understanding and consents to this therapy. DVT prophylaxis 11/11/2014 08/15/2016 Overview: The pt is on Lovenox 40mg daily SC and SCD for VTE prophylaxis. No signs or symptoms of DVT/PE. The patient is at high risk for VTE. Plan: - Continue Lovenox 40mg daily SC - SCD/OMKAR - Encourage continued ambulation . DISPOSITION AND FOLLOW-UP 11/11/20142016 Overview: Ana Ortega is and lives in [place], [place]. At this time, we anticipate that the patient will be discharged home once clinically stable. Plan: - Discuss needs with patient. - Collaborate with Case management to facilitate DC process - Will continue to evaluate during the post op period. - Desat study 11/14/14: patient will need home oxygen (2 L with exertion only) - Discharge home today with home care for assistance with chest tube to [facility]. Return to [facility] on Sunday11/18/[address] removal . Esophageal reflux 10/08/2014 10/08/2014 Cataract 04/17/2013 09/15/2016 Overview: [facility], Dr. Dada Rodríguez. Mild cataract in L eye- no need for cataract surgery at this time. Continue to follow up the cataract. C. difficile diarrhea 10/18/2011 09/15/2016 Tendonitis of ankle, right 05/03/201108/15 Pure hypercholesterolemia 12/14/20092014 Acute gastritis without mention of hemorrhage 09/15/2016 LUNG NODULE 09/05/2007 04/30/2015 Enlargement of lymph nodes 12/20/200608/15 Complete rupture of rotator cuff 03/03/2003 08/15/2016 Rotator cuff (capsule) sprain 01/10/2003 documented as of this encounter (statuses as of 10/18/2022) [facility]04-04-2015 History of Past illness Narrative* Problem Noted Date Resolved Date Hypoxia 11/14/2014 09/15/2016 Overview: Desat study done 11/14/14: Home oxygen needed (2 L/min via nasal cannula with exertion and while sleeping). A face to face encounter was performed during this hospital admission regarding the need for oxygen. The patient verbalized understanding and consents to this therapy. DVT prophylaxis 11/11/2014 08/15/2016 Overview: The pt is on Lovenox 40mg daily SC and SCD for VTE prophylaxis. No signs or symptoms of DVT/PE. The patient is at high risk for VTE. Plan: - Continue Lovenox 40mg daily SC - SCD/OMKAR - Encourage continued ambulation . DISPOSITION AND FOLLOW-UP 11/11/20142016 Overview: Ana Ortega is and lives in [place], [place]. At this time, we anticipate that the patient will be discharged home once clinically stable. Plan: - Discuss needs with patient. - Collaborate with Case management to facilitate DC process - Will continue to evaluate during the post op period. - Desat study 11/14/14: patient will need home oxygen (2 L with exertion only) - Discharge home today with home care for assistance with chest tube to [facility]. Return to OPD on Sunday11/18/[address] removal . Esophageal reflux 10/08/2014 10/08/2014 Cataract 04/17/2013 09/15/2016 Overview: [facility], Dr. Dada Rodríguez. Mild cataract in L eye- no need for cataract surgery at this time. Continue to follow up the cataract. C. difficile diarrhea 10/18/2011 09/15/2016 Tendonitis of ankle, right 05/03/201108/15 Pure hypercholesterolemia 12/14/20092014 Acute gastritis without mention of hemorrhage 09/15/2016 LUNG NODULE 09/05/2007 04/30/2015 Enlargement of lymph nodes 12/20/200608/15 Complete rupture of rotator cuff 03/03/2003 08/15/2016 Rotator cuff (capsule) sprain 01/10/2003 documented as of this encounter (statuses as of 01/25/2023) [facility]04-04-2015 History of Past illness Narrative* Problem Noted Date Resolved Date Hypoxia 11/14/2014 09/15/2016 Overview: Desat study done 11/14/14: Home oxygen needed (2 L/min via nasal cannula with exertion and while sleeping). A face to face encounter was performed during this hospital admission regarding the need for oxygen. The patient verbalized understanding and consents to this therapy. DVT prophylaxis 11/11/2014 08/15/2016 Overview: The pt is on Lovenox 40mg daily SC and SCD for VTE prophylaxis. No signs or symptoms of DVT/PE. The patient is at high risk for VTE. Plan: - Continue Lovenox 40mg daily SC - SCD/OMKAR - Encourage continued ambulation . DISPOSITION AND FOLLOW-UP 11/11/20142016 Overview: Ana Ortega is and lives in [place], [place]. At this time, we anticipate that the patient will be discharged home once clinically stable. Plan: - Discuss needs with patient. - Collaborate with Case management to facilitate DC process - Will continue to evaluate during the post op period. - Desat study 11/14/14: patient will need home oxygen (2 L with exertion only) - Discharge home today with home care for assistance with chest tube to [facility]. Return to OPD on Sunday11/18/[address] removal . Esophageal reflux 10/08/2014 10/08/2014 Cataract 04/17/2013 09/15/2016 Overview: [facility], Dr. Dada Rodríguez. Mild cataract in L eye- no need for cataract surgery at this time. Continue to follow up the cataract. C. difficile diarrhea 10/18/2011 09/15/2016 Tendonitis of ankle, right 05/03/201108/15 Pure hypercholesterolemia 12/14/20092014 Acute gastritis without mention of hemorrhage 09/15/2016 LUNG NODULE 09/05/2007 04/30/2015 Enlargement of lymph nodes 12/20/200608/15 Complete rupture of rotator cuff 03/03/2003 08/15/2016 Rotator cuff (capsule) sprain 01/10/2003 documented as of this encounter (statuses as of 02/08/2023) [facility]04-04-2015 History of Past illness Narrative* Problem Noted Date Resolved Date Hypoxia 11/14/2014 09/15/2016 Overview: Desat study done 11/14/14: Home oxygen needed (2 L/min via nasal cannula with exertion and while sleeping). A face to face encounter was performed during this hospital admission regarding the need for oxygen. The patient verbalized understanding and consents to this therapy. DVT prophylaxis 11/11/2014 08/15/2016 Overview: The pt is on Lovenox 40mg daily SC and SCD for VTE prophylaxis. No signs or symptoms of DVT/PE. The patient is at high risk for VTE. Plan: - Continue Lovenox 40mg daily SC - SCD/OMKAR - Encourage continued ambulation . DISPOSITION AND FOLLOW-UP 11/11/20142016 Overview: Ana Ortega is and lives in [place], [place]. At this time, we anticipate that the patient will be discharged home once clinically stable. Plan: - Discuss needs with patient. - Collaborate with Case management to facilitate DC process - Will continue to evaluate during the post op period. - Desat study 11/14/14: patient will need home oxygen (2 L with exertion only) - Discharge home today with home care for assistance with chest tube to [facility]. Return to OPD on Sunday11/18/[address] . Esophageal reflux 10/08/2014 10/08/2014 Cataract 04/17/2013 09/15/2016 Overview: [facility], Dr. Dada Rodríguez. Mild cataract in L eye- no need for cataract surgery at this time. Continue to follow up the cataract. C. difficile diarrhea 10/18/2011 09/15/2016 Tendonitis of ankle, right 05/03/201108/15 Pure hypercholesterolemia 12/14/20092014 Acute gastritis without mention of hemorrhage 09/15/2016 LUNG NODULE 09/05/2007 04/30/2015 Enlargement of lymph nodes 12/20/200608/15 Complete rupture of rotator cuff 03/03/2003 08/15/2016 Rotator cuff (capsule) sprain 01/10/2003 documented as of this encounter (statuses as of 02/12/2023) [facility]04-04-2015 History of Past illness Narrative* Problem Noted Date Diagnosed Date Resolved Date Hypoxia 11/14/2014 09/15/2016 Overview: Desat study done 11/14/14: Home oxygen needed (2 L/min via nasal cannula with exertion and while sleeping). A face to face encounter was performed during this hospital admission regarding the need for oxygen. The patient verbalized understanding and consents to this therapy. DVT prophylaxis 11/11/2014 08/15/2016 Overview: The pt is on Lovenox 40mg daily SC and SCD for VTE prophylaxis. No signs or symptoms of DVT/PE. The patient is at high risk for VTE. Plan: - Continue Lovenox 40mg daily SC - SCD/OMKAR - Encourage continued ambulation . DISPOSITION AND FOLLOW-UP 11/11/2014 Overview: Ana Ortega is and lives in [place], [place]. At this time, we anticipate that the patient will be discharged home once clinically stable. Plan: - Discuss needs with patient. - Collaborate with Case management to facilitate DC process - Will continue to evaluate during the post op period. - Desat study 11/14/14: patient will need home oxygen (2 L with exertion only) - Discharge home today with home care for assistance [facility]. Return to OPD on Sunday11/18/[address] removal . Esophageal reflux 10/08/2014 10/08/2014 Cataract 04/17/2013 09/15/2016 Overview: [facility], Dr. Dada Rodríguez. Mild cataract in L eye- no need for cataract surgery at this time. Continue to follow up the cataract. C. difficile diarrhea 10/18/20112016 Tendonitis of ankle, right 05/03/2011 0 08/15/2016 Pure hypercholesterolemia 12/14/2009 Acute gastritis without mention of hemorrhage 10/31/19 08 09/15/2016 LUNG NODULE 09/05/2007 04/30/2015 Enlargement of lymph nodes 12/20/2006 0 08/15/2016 Complete rupture of rotator cuff 03/03/2003 08/15/2016 Rotator cuff (capsule) sprain 01/10/2003 03/03/2003 documented as of this encounter (statuses as of 04/06/2023) [facility]04-04-2015 History of Past illness Narrative* Problem Noted Date Diagnosed Date Resolved Date Hypoxia 11/14/2014 09/15/2016 Overview: Desat study done 11/14/14: Home oxygen needed (2 L/min via nasal cannula with exertion and while sleeping). A face to face encounter was performed during this hospital admission regarding the need for oxygen. The patient verbalized understanding and consents to this therapy. DVT prophylaxis 11/11/2014 08/15/2016 Overview: The pt is on Lovenox 40mg daily SC and SCD for VTE prophylaxis. No signs or symptoms of DVT/PE. The patient is at high risk for VTE. Plan: - Continue Lovenox 40mg daily SC - SCD/OMKAR - Encourage continued ambulation . DISPOSITION AND FOLLOW-UP 11/11/2014 Overview: Ana Ortega is and lives in [place], [place]. At this time, we anticipate that the patient will be discharged home once clinically stable. Plan: - Discuss needs with patient. - Collaborate with Case management to facilitate DC process - Will continue to evaluate during the post op period. - Desat study 11/14/14: patient will need home oxygen (2 L with exertion only) - Discharge home today with home care for assistance with chest tube to [facility]. Return to OPD on Sunday11/18/[address] removal . Esophageal reflux 10/08/2014 10/08/2014 Cataract 04/17/2013 09/15/2016 Overview: [facility], Dr. Dada Rodríguez. Mild cataract in L eye- no need for cataract surgery at this time. Continue to follow up the cataract. C. difficile diarrhea 10/18/20112016 Tendonitis of ankle, right 05/03/2011 0 08/15/2016 Pure hypercholesterolemia 12/14/2009 Acute gastritis without mention of hemorrhage 10/31/19 08 09/15/2016 LUNG NODULE 09/05/2007 04/30/2015 Enlargement of lymph nodes 12/20/2006 0 08/15/2016 Complete rupture of rotator cuff 03/03/2003 08/15/2016 Rotator cuff (capsule) sprain 01/10/2003 03/03/2003 documented as of this encounter (statuses as of 04/08/2023) [facility]04-04-2015 History of Past illness Narrative* Problem Noted Date Diagnosed Date Resolved Date Hypoxia 11/14/2014 09/15/2016 Overview: Desat study done 11/14/14: Home oxygen needed (2 L/min via nasal cannula with exertion and while sleeping). A face to face encounter was performed during this hospital admission regarding the need for oxygen. The patient verbalized understanding and consents to this therapy. DVT prophylaxis 11/11/2014 08/15/2016 Overview: The pt is on Lovenox 40mg daily SC and SCD for VTE prophylaxis. No signs or symptoms of DVT/PE. The patient is at high risk for VTE. Plan: - Continue Lovenox 40mg daily SC - SCD/OMKAR - Encourage continued ambulation . DISPOSITION AND FOLLOW-UP 11/11/2014 Overview: Ana Ortega is and lives in [place]. At this time, we anticipate that the patient will be discharged home once clinically stable. Plan: - Discuss needs with patient. - Collaborate with Case management to facilitate DC process - Will continue to evaluate during the post op period. - Desat study 11/14/14: patient will need home oxygen (2 L with exertion only) - Discharge home today with home care for assistance [facility] tube [facility]. Return to OPD on Sunday11/18/[address] removal . Esophageal reflux 10/08/2014 10/08/2014 Cataract 04/17/2013 09/15/2016 Overview: [facility], Dr. Dada Rodríguez. Mild cataract in L eye- no need for cataract surgery at this time. Continue to follow up the cataract. C. difficile diarrhea 10/18/20112016 Tendonitis of ankle, right 05/03/2011 0 08/15/2016 Pure hypercholesterolemia 12/14/2009 Acute gastritis without mention of hemorrhage 10/31/19 08 09/15/2016 LUNG NODULE 09/05/2007 04/30/2015 Enlargement of lymph nodes 12/20/2006 0 08/15/2016 Complete rupture of rotator cuff 03/03/2003 08/15/2016 Rotator cuff (capsule) sprain 01/10/2003 03/03/2003 documented as of this encounter (statuses as of 06/01/2023) [facility]04-04-2015 History of Past illness Narrative* Problem Noted Date Diagnosed Date Resolved Date Hypoxia 11/14/2014 09/15/2016 Overview: Desat study done 11/14/14: Home oxygen needed (2 L/min via nasal cannula with exertion and while sleeping). A face to face encounter was performed during this hospital admission regarding the need for oxygen. The patient verbalized understanding and consents to this therapy. DVT prophylaxis 11/11/2014 08/15/2016 Overview: The pt is on Lovenox 40mg daily SC and SCD for VTE prophylaxis. No signs or symptoms of DVT/PE. The patient is at high risk for VTE. Plan: - Continue Lovenox 40mg daily SC - SCD/OMKAR - Encourage continued ambulation . DISPOSITION AND FOLLOW-UP 11/11/2014 Overview: Ana Ortega is and lives in [place]. At this time, we anticipate that the patient will be discharged home once clinically stable. Plan: - Discuss needs with patient. - Collaborate with Case management to facilitate DC process - Will continue to evaluate during the post op period. - Desat study 11/14/14: patient will need home oxygen (2 L with exertion only) - Discharge home today with home care for assistance with chest tube to [facility]. Return to OPD on Sunday11/18/[address] . Esophageal reflux 10/08/2014 10/08/2014 Cataract 04/17/2013 09/15/2016 Overview: [facility], Dr. Dada Rodríguez. Mild cataract in L eye- no need for cataract surgery at this time. Continue to follow up the cataract. C. difficile diarrhea 10/18/20112016 Tendonitis of ankle, right 05/03/2011 0 08/15/2016 Pure hypercholesterolemia 12/14/2009 Acute gastritis without mention of hemorrhage 10/31/19 08 09/15/2016 LUNG NODULE 09/05/2007 04/30/2015 Enlargement of lymph nodes 12/20/2006 0 08/15/2016 Complete rupture of rotator cuff 03/03/2003 08/15/2016 Rotator cuff (capsule) sprain 01/10/2003 03/03/2003 documented as of this encounter (statuses as of 06/05/2023) [facility]04-[facility]2015 History of Past illness Narrative* Problem Noted Date Diagnosed Date Resolved Date Hypoxia 11/14/2014 09/15/2016 Overview: Desat study done 11/14/14: Home oxygen needed (2 L/min via nasal cannula with exertion and while sleeping). A face to face encounter was performed during this hospital admission regarding the need for oxygen. The patient verbalized understanding and consents to this therapy. DVT prophylaxis 11/11/2014 08/15/2016 Overview: The pt is on Lovenox 40mg daily SC and SCD for VTE prophylaxis. No signs or symptoms of DVT/PE. The patient is at high risk for VTE. Plan: - Continue Lovenox 40mg daily SC - SCD/OMKAR - Encourage continued ambulation . DISPOSITION AND FOLLOW-UP 11/11/2014 Overview: Ana Ortega is and lives in [place]. At this time, we anticipate that the patient will be discharged home once clinically stable. Plan: - Discuss needs with patient. - Collaborate with Case management to facilitate DC process - Will continue to evaluate during the post op period. - Desat study 11/14/14: patient will need home oxygen (2 L with exertion only) - Discharge home today with home care for assistance with chest tube to [facility]. Return to OPD on Sunday11/18/[address] . Esophageal reflux 10/08/2014 10/08/2014 Cataract 04/17/2013 09/15/2016 Overview: [facility], Dr. Dada Rodríguez. Mild cataract in L eye- no need for cataract surgery at this time. Continue to follow up the cataract. C. difficile diarrhea 10/18/20112016 Tendonitis of ankle, right 05/03/2011 0 08/15/2016 Pure hypercholesterolemia 12/14/2009 Acute gastritis without mention of hemorrhage 10/31/19 08 09/15/2016 LUNG NODULE 09/05/2007 04/30/2015 Enlargement of lymph nodes 12/20/2006 0 08/15/2016 Complete rupture of rotator cuff 03/03/2003 08/15/2016 Rotator cuff (capsule) sprain 01/10/2003 03/03/2003 documented as of this encounter (statuses as of 06/06/2023) [facility]04-[facility]2015 History of Past illness Narrative* Problem Noted Date Diagnosed Date Resolved Date Hypoxia 11/14/2014 09/15/2016 Overview: Desat study done 11/14/14: Home oxygen needed (2 L/min via nasal cannula with exertion and while sleeping). A face to face encounter was performed during this hospital admission regarding the need for oxygen. The patient verbalized understanding and consents to this therapy. DVT prophylaxis 11/11/2014 08/15/2016 Overview: The pt is on Lovenox 40mg daily SC and SCD for VTE prophylaxis. No signs or symptoms of DVT/PE. The patient is at high risk for VTE. Plan: - Continue Lovenox 40mg daily SC - SCD/OMKAR - Encourage continued ambulation . DISPOSITION AND FOLLOW-UP 11/11/2014 Overview: Ana Ortega is and lives in [place]. At this time, we anticipate that the patient will be discharged home once clinically stable. Plan: - Discuss needs with patient. - Collaborate with Case management to facilitate DC process - Will continue to evaluate during the post op period. - Desat study 11/14/14: patient will need home oxygen (2 L with exertion only) - Discharge home today with home care for assistance with [facility] tube [facility]. Return to [facility]PD on Sunday11/18/[address] . Esophageal reflux 10/08/2014 10/08/2014 Cataract 04/17/2013 09/15/2016 Overview: [facility], Dr. Dada Rodríguez. Mild cataract in L eye- no need for cataract surgery at this time. Continue to follow up the cataract. C. difficile diarrhea 10/18/20112016 Tendonitis of ankle, right 05/03/2011 0 08/15/2016 Pure hypercholesterolemia 12/14/2009 Acute gastritis without mention of hemorrhage 10/31/19 08 09/15/2016 LUNG NODULE 09/05/2007 04/30/2015 Enlargement of lymph nodes 12/20/2006 0 08/15/2016 Complete rupture of rotator cuff 03/03/2003 08/15/2016 Rotator cuff (capsule) sprain 01/10/2003 03/03/2003 documented as of this encounter (statuses as of 06/07/2023) [facility]04-[facility]2015 History of Past illness Narrative* Problem Noted Date Diagnosed Date Resolved Date Hypoxia 11/14/2014 09/15/2016 Overview: Desat study done 11/14/14: Home oxygen needed (2 L/min via nasal cannula with exertion and while sleeping). A face to face encounter was performed during this hospital admission regarding the need for oxygen. The patient verbalized understanding and consents to this therapy. DVT prophylaxis 11/11/2014 08/15/2016 Overview: The pt is on Lovenox 40mg daily SC and SCD for VTE prophylaxis. No signs or symptoms of DVT/PE. The patient is at high risk for VTE. Plan: - Continue Lovenox 40mg daily SC - SCD/OMKAR - Encourage continued ambulation . DISPOSITION AND FOLLOW-UP 11/11/2014 Overview: Ana Ortega is and lives in [place]. At this time, we anticipate that the patient will be discharged home once clinically stable. Plan: - Discuss needs with patient. - Collaborate with Case management to facilitate DC process - Will continue to evaluate during the post op period. - Desat study 11/14/14: patient will need home oxygen (2 L with exertion only) - Discharge home today with home care for assistance with chest tube to [facility]. Return to [facility]PD on Sunday11/18/[address] . Esophageal reflux 10/08/2014 10/08/2014 Cataract 04/17/2013 09/15/2016 Overview: [facility], Dr. Dada Rodríguez. Mild cataract in L eye- no need for cataract surgery at this time. Continue to follow up the cataract. C. difficile diarrhea 10/18/20112016 Tendonitis of ankle, right 05/03/2011 0 08/15/2016 Pure hypercholesterolemia 12/14/2009 Acute gastritis without mention of hemorrhage 10/31/19 08 09/15/2016 LUNG NODULE 09/05/2007 04/30/2015 Enlargement of lymph nodes 12/20/2006 0 08/15/2016 Complete rupture of rotator cuff 03/03/2003 08/15/2016 Rotator cuff (capsule) sprain 01/10/2003 03/03/2003 documented as of this encounter (statuses as of 06/17/2023) [facility]04[facility] History of Past illness Narrative* Problem Noted Date Diagnosed Date Resolved Date Hypoxia 11/14/2014 09/15/2016 Overview: Desat study done 11/14/14: Home oxygen needed (2 L/min via nasal cannula with exertion and while sleeping). A face to face encounter was performed during this hospital admission regarding the need for oxygen. The patient verbalized understanding and consents to this therapy. DVT prophylaxis 11/11/2014 08/15/2016 Overview: The pt is on Lovenox 40mg daily SC and SCD for VTE prophylaxis. No signs or symptoms of DVT/PE. The patient is at high risk for VTE. Plan: - Continue Lovenox 40mg daily SC - SCD/OMKAR - Encourage continued ambulation . DISPOSITION AND FOLLOW-UP 11/11/2014 Overview: Ana Ortega is and lives in [place]. At this time, we anticipate that the patient will be discharged home once clinically stable. Plan: - Discuss needs with patient. - Collaborate with Case management to facilitate DC process - Will continue to evaluate during the post op period. - Desat study 11/14/14: patient will need home oxygen (2 L with exertion only) - Discharge home today with home care for assistance with [facility]. Return to [facility]PD on Sunday11/18/[address] . Esophageal reflux 10/08/2014 10/08/2014 Cataract 04/17/2013 09/15/2016 Overview: [facility], Dr. Dada Rodríguez. Mild cataract in L eye- no need for cataract surgery at this time. Continue to follow up the cataract. C. difficile diarrhea 10/18/20112016 Tendonitis of ankle, right 05/03/2011 0 08/15/2016 Pure hypercholesterolemia 12/14/2009 Acute gastritis without mention of hemorrhage 10/31/19 08 09/15/2016 LUNG NODULE 09/05/2007 04/30/2015 Enlargement of lymph nodes 12/20/2006 0 08/15/2016 Complete rupture of rotator cuff 03/03/2003 08/15/2016 Rotator cuff (capsule) sprain 01/10/2003 03/03/2003 documented as of this encounter (statuses as of 06/29/2023) [facility] History of Past illness Narrative* Problem Noted Date Diagnosed Date Resolved Date Hypoxia 11/14/2014 09/15/2016 Overview: Desat study done 11/14/14: Home oxygen needed (2 L/min via nasal cannula with exertion and while sleeping). A face to face encounter was performed during this hospital admission regarding the need for oxygen. The patient verbalized understanding and consents to this therapy. DVT prophylaxis 11/11/2014 08/15/2016 Overview: The pt is on Lovenox 40mg daily SC and SCD for VTE prophylaxis. No signs or symptoms of DVT/PE. The patient is at high risk for VTE. Plan: - Continue Lovenox 40mg daily SC - SCD/OMKAR - Encourage continued ambulation . DISPOSITION AND FOLLOW-UP 11/11/2014 Overview: Ana Ortega is and lives in [place]. At this time, we anticipate that the patient will be discharged home once clinically stable. Plan: - Discuss needs with patient. - Collaborate with Case management to facilitate DC process - Will continue to evaluate during the post op period. - Desat study 11/14/14: patient will need home oxygen (2 L with exertion only) - Discharge home today with home care for assistance with [facility]. Return to [facility] on Sunday11/18/[address] . Esophageal reflux 10/08/2014 10/08/2014 Cataract 04/17/2013 09/15/2016 Overview: [facility], Dr. Dada Rodríguez. Mild cataract in L eye- no need for cataract surgery at this time. Continue to follow up the cataract. C. difficile diarrhea 10/18/20112016 Tendonitis of ankle, right 05/03/2011 0 08/15/2016 Pure hypercholesterolemia 12/14/2009 Acute gastritis without mention of hemorrhage 10/31/19 08 09/15/2016 LUNG NODULE 09/05/2007 04/30/2015 Enlargement of lymph nodes 12/20/2006 0 08/15/2016 Complete rupture of rotator cuff 03/03/2003 08/15/2016 Rotator cuff (capsule) sprain 01/10/2003 03/03/2003 documented as of this encounter (statuses as of 07/03/2023) [facility] History of Past illness Narrative* Problem Noted Date Diagnosed Date Resolved Date Hypoxia 11/14/2014 09/15/2016 Overview: Desat study done 11/14/14: Home oxygen needed (2 L/min via nasal cannula with exertion and while sleeping). A face to face encounter was performed during this hospital admission regarding the need for oxygen. The patient verbalized understanding and consents to this therapy. DVT prophylaxis 11/11/2014 08/15/2016 Overview: The pt is on Lovenox 40mg daily SC and SCD for VTE prophylaxis. No signs or symptoms of DVT/PE. The patient is at high risk for VTE. Plan: - Continue Lovenox 40mg daily SC - SCD/OMKAR - Encourage continued ambulation . DISPOSITION AND FOLLOW-UP 11/11/2014 Overview: Ana Ortega is and lives in [place], [place]. At this time, we anticipate that the patient will be discharged home once clinically stable. Plan: - Discuss needs with patient. - Collaborate with Case management to facilitate DC process - Will continue to evaluate during the post op period. - Desat study 11/14/14: patient will need home oxygen (2 L with exertion only) - Discharge home today with home care for assistance with chest tube to [facility]. Return [facility] on Sunday11/18/[address] . Esophageal reflux 10/08/2014 10/08/2014 Cataract 04/17/2013 09/15/2016 Overview: [facility], Dr. Dada Rodríguez. Mild cataract in L eye- no need for cataract surgery at this time. Continue to follow up the cataract. C. difficile diarrhea 10/18/20112016 Tendonitis of ankle, right 05/03/2011 0 08/15/2016 Pure hypercholesterolemia 12/14/2009 Acute gastritis without mention of hemorrhage 10/31/19 08 09/15/2016 LUNG NODULE 09/05/2007 04/30/2015 Enlargement of lymph nodes 12/20/2006 0 08/15/2016 Complete rupture of rotator cuff 03/03/2003 08/15/2016 Rotator cuff (capsule) sprain 01/10/2003 03/03/2003 documented as of this encounter (statuses as of 07/21/2023) [facility] note* Diagnosis Anxiety Anxiety state, unspecified documented in this encounter [facility]* Diagnosis Chronic gastritis without bleeding, unspecified gastritis type Esophagitis Esophagitis, unspecified documented in this encounter [facility] note* Diagnosis Ankle injury, initial encounter- Primary [facility] Diagnosis Urinary tract infection without hematuria, site unspecified- Primary Chronic cough Cough Fall, initial encounter Bilateral leg edema Edema 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, with long-term current use of insulin (HCC) Vitamin D deficiency Unspecified vitamin D deficiency Essential hypertension Unspecified essential hypertension Vitamin B6 deficiency Encounter for long-term current use of medication Stomach upset Dyspepsia and other specified disorders of function of stomach Gastroesophageal reflux disease, unspecified whether esophagitis present [facility] Diagnosis Asymptomatic postmenopausal status [facility] Diagnosis Osteoporosis, unspecified osteoporosis type, unspecified pathological fracture presence- Primary Anxiety Anxiety state, unspecified Encounter for immunization Need for other specified prophylactic vaccination against single bacterial disease [facility]* Diagnosis Suspected COVID-19 virus infection- Primary [facility] Diagnosis Vitamin D deficiency- Primary Unspecified vitamin D deficiency Chronic cough Cough Vitamin B6 deficiency Essential hypertension Unspecified essential hypertension 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, with long-term current use of insulin (HCC) Hyperlipidemia, unspecified hyperlipidemia type Left lateral epicondylitis Lateral epicondylitis of elbow Radial styloid tenosynovitis of left hand Radial styloid tenosynovitis Asymptomatic postmenopausal status [facility] Diagnosis Essential hypertension Unspecified essential hypertension [facility]* Diagnosis 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, with long-term current use of insulin (HCC) [facility] Diagnosis Essential hypertension- Primary Unspecified essential hypertension 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, with long-term current use of insulin (HCC) Vitamin D deficiency Unspecified vitamin D deficiency Osteoporosis, unspecified Primary hypertension Unspecified essential hypertension [facility] Diagnosis 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, with long-term current use of insulin (HCC)- Primary Contusion of right foot, initial encounter Contusion of christianity region, initial encounter Injury of coccyx, initial encounter Facial pain Headache Jaw pain Anxiety Anxiety state, unspecified Vitamin D deficiency Unspecified vitamin D deficiency [facility] Diagnosis Intractable acute post-traumatic headache- Primary Acute post-traumatic headache Contusion of right foot, initial encounter Contusion of christianity region, initial encounter Injury of coccyx, initial encounter Facial pain Headache Jaw pain Injury of head, subsequent encounter [facility] Diagnosis Intractable acute post-traumatic headache- Primary Acute post-traumatic headache Contusion of right foot, initial encounter Contusion of christianity region, initial encounter Injury of coccyx, initial encounter Facial pain Headache Jaw pain [facility] Diagnosis 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, with long-term current use of insulin (HCC)- Primary Hyperlipidemia, unspecified hyperlipidemia type Vitamin D deficiency Unspecified vitamin D deficiency [facility] Diagnosis Anxiety Anxiety state, unspecified [facility] Diagnosis Viral URI- Primary Acute upper respiratory infections of unspecified site Right ear pain Otalgia, unspecified [facility] Diagnosis Bronchiectasis without complication (HCC)- Primary Bronchiectasis without acute exacerbation Carcinoid bronchial adenoma, 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[facility]) Encounter for immunization Need for other specified prophylactic vaccination against single bacterial disease 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 Essential hypertension Unspecified essential hypertension Anxiety Anxiety state, unspecified documented [facility] this [facility] Diagnosis 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 Gonzales's esophagus documented in this [facility] Diagnosis 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 Gonzales's esophagus documented [facility] Diagnosis Injury of head, subsequent encounter [facility] this [facility] Diagnosis Debility- Primary Debility, unspecified Diabetes 1.5, managed as type 1 (HCC) Type II or unspecified type diabetes mellitus without mention of complication, not stated as uncontrolled Sepsis, due to unspecified organism, unspecified whether acute organ dysfunction present (HCC) Pain in left ta documented in this encounter [facility] Diagnosis Anxiety Anxiety state, unspecified documented in this encounter [facility] for referral (narrative)* Diagnostic Procedure Only (Urgent) - Closed Specialty Diagnoses / Procedures Referred By Contac t Referred To Contact XR IMAGING Diagnoses Ankle injury, initial encounter Procedures XR ANKLE GENERAL 3V AP/LAT/OBL RIGHT RADEX ANKLE COMPLETE MINIMUM 3 VIEWS Anu Pablo PA-C [address] [place] [address] Xr Imaging Referral ID Status Reason Start Date Expiration Date V isits Requested Visits Authorized [id number] Closed Auto-Generate d Referral 01/30/2022 03/01/2023 1 1 [facility] for referral (narrative)* Outpatient Procedure (Routine) - Authorized Specialty Diagnoses / Procedures [facility] 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 Procedures EGD DIAGNOSTIC ESOPHAGOGASTRODUODENOSC OPY TRANSORAL DIAGNOSTIC Radha Balderrama MD [address] [place] [place] [address] [id number] [place] [address] Referral ID Status Reason Start Date Expiration Date Visits Requested Visits Authorized [id number] Authorized Auto-Generat ed Referral 06/04/2024 1 1 [facility] for referral (narrative)* Outpatient Procedure (Routine) - Closed Specialty Diagnoses / Procedures Referred By Maddison peters Referred To Contact [facility] 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 Procedures EGD DIAGNOSTIC ESOPHAGOGASTRODUODENOSC OPY TRANSORAL DIAGNOSTIC Radha Balderrama MD [address] [place] [address] [facility] [address] [place] [address] Referral ID Status Reason Start Date Expiration Date V isits Requested Visits Authorized [id number] Closed Auto-Generate d Referral 06/04/2023 06/04/2024 1 1 [facility] for visit Narrative* Auth/Cert Specialty Diagnoses / Procedures Referred By Maddison t Referred To Contact Diagnoses History of Gonzales's esophagus [Z87.19 Procedures ESOPHAGOGASTRODUODENOSCOPY TRANSORAL DIAGNOSTIC EGD DIAGNOSTIC [GI9 [facility] [address] [place] [address] Referral ID Status Reason Start Date Expiration Date Visits Re quested Visits Authorized [id number] 1 1 [facility]* Outpatient Procedure (Routine) - Closed Specialty Diagnoses / Procedures Referred By Contantonio t Referred To Contact [facility] 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 Procedures EGD DIAGNOSTIC ESOPHAGOGASTRODUODENOSC OPY TRANSORAL DIAGNOSTIC Radha Balderrama MD [address] [place] [address] [facility] [address] [place] [address] Referral ID Status Reason Start Date Expiration Date V isits Requested Visits Authorized [id number] Closed Auto-Generate d Referral 06/04/2023 06/04/2024 1 1 [facility] Advance Directives Documents on File Type Date Recorded Patient Professor/Nurse Anesthetist Expl anation Advance Directive(s) 11/10/2021 3:53 PM Advance Directive(s) 09/15/2019 7:07 AM Advance Directive(s) 08/11/2019 11:31 AM Advance Directive(s) 09/10/2017 12:39 PM Advance Directive(s) 08/31/2017 2:53 PM Advance Directive(s) 10/15/2015 11:26 AM Advance Directive(s) 10/13/2015 4:23 PM Advance Directive(s) 09/25/2015 5:47 AM Advance Directive(s) 09/25/2008 8:05 PM Advance Directive(s) 05/05/2008 12:00 AM Advance Directive(s) 09/27/2006 12:00 AM Documents on File Type Date Recorded Patient Professor/Nurse Anesthetist Expl anation Advance Directive(s) 12/21/2021 1:29 PM Advance Directive(s) 11/10/2021 3:53 PM Advance Directive(s) 09/15/2019 7:07 AM Advance Directive(s) 08/11/2019 11:31 AM Advance Directive(s) 09/10/2017 12:39 PM Advance Directive(s) 08/31/2017 2:53 PM Advance Directive(s) 10/15/2015 11:26 AM Advance Directive(s) 10/13/2015 4:23 PM Advance Directive(s) 09/25/2015 5:47 AM Advance Directive(s) 09/25/2008 8:05 PM Advance Directive(s) 05/05/2008 12:00 AM Advance Directive(s) 09/27/2006 12:00 AM Documents on File Type Date Recorded Patient Professor/Nurse Anesthetist Expl anation Advance Directive(s) 12/21/2021 1:29 PM Advance Directive(s) 11/10/2021 3:53 PM Advance Directive(s) 09/15/2019 7:07 AM Advance Directive(s) 08/11/2019 11:31 AM Advance Directive(s) 09/10/2017 12:39 PM Advance Directive(s) 08/31/2017 2:53 PM Advance Directive(s) 10/15/2015 11:26 AM Advance Directive(s) 10/13/2015 4:23 PM Advance Directive(s) 09/25/2015 5:47 AM Advance Directive(s) 09/25/2008 8:05 PM Advance Directive(s) 05/05/2008 12:00 AM Advance Directive(s) 09/27/2006 12:00 AM Documents on File Type Date Recorded Patient Professor/Nurse Anesthetist Expl anation Advance Directive(s) 09/25/2008 8:05 PM Advance Directive(s) 05/05/2008 Advance Directive(s) 09/27/2006 Documents on File Type Date Recorded Patient Professor/Nurse Anesthetist Expl anation Advance Directive(s) 09/25/2008 8:05 PM Advance Directive(s) 05/05/2008 Advance Directive(s) 09/27/2006 Medications Administered Section Inactive Administered Medications - up to 3 most recent administrations Medication Order MAR Action Action Date Dose Rate Site benzocaine 20% 1 [facility] (TOPEX) 1 [facility], TOPICAL, DIRECTED, Starting on Sun12/21/21 at 0830, Until Sun12/21/21 at 1229, DOSING DIRECTED BY PHYSICIAN FOR PROCEDURAL SEDATION ONLY - Pharmaceutical Waste: Aerosol -, Intraprocedure Given 12/21/2021 8:07 AM EDT 1 [facility] Concerns Infection Onset Date Last Indicated Resolved Time COVID-19 Rule-Out 05/16/2022 05/16/2022 Reason for Referral Specialty Diagnoses / Procedures Referred By Contac t Referred To Contact CT IMAGING Diagnoses Injury of head, subsequent encounter Procedures CT BRAIN WO IVCON CT HEAD/BRAIN W/O CONTRAST MATERIAL Clarence Berry, BENCH PRESS OPERATOR.ACCOUNTANT BOOKKEEPER [address] [place] [address] Ct Imaging Referral ID Status Reason Start Date Expiration Date V isits Requested Visits Authorized [id number] Closed Auto-Generate d Referral 10/10/2022 11/09/2023 1 1 Specialty Diagnoses / Procedures Referred By Contac t Referred To Contact [facility] Diagnoses Contusion of right foot, initial encounter Contusion of christianity region, initial encounter Injury of coccyx, initial encounter Facial pain Jaw pain Procedures CONSULT TO PHYSICAL THERAPY PHYSICAL THERAPY EVALUATION HIGH COMPLEX 45 MINS Clarence Berry, BENCH PRESS OPERATOR.ACCOUNTANT BOOKKEEPER [address] [place] [address] [facility] [address] [place] [address] Referral ID Status Reason Start Date Expiration Date Visits Requested Visits Authorized [id number] Authorized PCP Requested Referral Auto-Generate d Referral 10/10/2022 10/10/2023 99 99 Specialty Diagnoses / Procedures Referred By Contac t Referred To Contact Gastroenterology 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 Procedures CONSULT TO GASTROENTEROLOGY OFFICE/OUTPATIENT [facility] 60-74 MINUTES BerryClarence kirkpatrick, BENCH PRESS OPERATOR.ACCOUNTANT BOOKKEEPER [address] [place] [address] Referral ID Status Reason Start Date Expiration Date Visits Requested Visits Authorized [id number] Authorized PCP Requested Referral 3 05/30/2024 1 1 Specialty Diagnoses / Procedures Referred By Contac t Referred To Contact CT IMAGING Diagnoses Injury of head, subsequent encounter Procedures CT BRAIN WO IVCON CT HEAD/BRAIN W/O CONTRAST MATERIAL BerryClarence kirkpatrick, BENCH PRESS OPERATOR.ACCOUNTANT BOOKKEEPER [address] [place] [address] [place] [id number] Specialty Diagnoses / Procedures Referred By Contac t Referred To Contact Orthopedics Diagnoses Pain in left ta Procedures CONSULT TO ORTHOPAEDICS OFFICE/OUTPATIENT [facility] 60-74 MINUTES Clarence Berry, BENCH PRESS OPERATOR.ACCOUNTANT BOOKKEEPER [address] [place] [address] Referral ID Status Reason Start Date Expiration Date Visits Requested Visits Authorized [id number] Authorized PCP Requested Referral 3 07/01/2024 1 1 Summary Purpose Family History No Family History Records FoundNo Family History Records Found Additional Source Comments Source Comments (unrecognize d section and content) In the event this informatio n is protected by the Federal Confidentiality of Alcohol and Drug Abuse Patient Records regulations: The Federal rules restrict any use of the information to criminally investigate or prosecute any alcohol or drug abuse patient.[facility] the event this information is protected by the Federal Confidentiality of Alcohol and Drug Abuse Patient Records regulations: The Federal rules restrict any use of the information to criminally investigate or prosecute any alcohol or drug abuse patient.[facility] the event this information is protected by the Federal Confidentiality of Alcohol and Drug Abuse Patient Records regulations: The Federal rules restrict any use of the information to criminally investigate or prosecute any alcohol or drug abuse patient.[facility] the event this information is protected by the Federal Confidentiality of Alcohol and Drug Abuse Patient Records regulations: The Federal rules restrict any use of the information to criminally investigate or prosecute any alcohol or drug abuse patient.[facility] the event this information is protected by the Federal Confidentiality of Alcohol and Drug Abuse Patient Records regulations: The Federal rules restrict any use of the information to criminally investigate or prosecute any alcohol or drug abuse patient.[facility] the event this information is protected by the Federal Confidentiality of Alcohol and Drug Abuse Patient Records regulations: The Federal rules restrict any use of the information to criminally investigate or prosecute any alcohol or drug abuse patient.[facility] the event this information is protected by the Federal Confidentiality of Alcohol and Drug Abuse Patient Records regulations: The Federal rules restrict any use of the information to criminally investigate or prosecute any alcohol or drug abuse patient.[facility] the event this information is protected by the Federal Confidentiality of Alcohol and Drug Abuse Patient Records regulations: The Federal rules restrict any use of the information to criminally investigate or prosecute any alcohol or drug abuse patient.[facility] the event this information is protected by the Federal Confidentiality of Alcohol and Drug Abuse Patient Records regulations: The Federal rules restrict any use of the information to criminally investigate or prosecute any alcohol or drug abuse patient.[facility] Hospital[facility] the event this information is protected by the Federal Confidentiality of Alcohol and Drug Abuse Patient Records regulations: The Federal rules restrict any use of the information to criminally investigate or prosecute any alcohol or drug abuse patient.[facility] Hospital[facility] the event this information is protected by the Federal Confidentiality of Alcohol and Drug Abuse Patient Records regulations: The Federal rules restrict any use of the information to criminally investigate or prosecute any alcohol or drug abuse patient.[facility] Hospital[facility] the event this information is protected by the Federal Confidentiality of Alcohol and Drug Abuse Patient Records regulations: The Federal rules restrict any use of the information to criminally investigate or prosecute any alcohol or drug abuse patient.[facility] the event this information is protected by the Federal Confidentiality of Alcohol and Drug Abuse Patient Records regulations: The Federal rules restrict any use of the information to criminally investigate or prosecute any alcohol or drug abuse patient.[facility] Hospital[facility] the event this information is protected by the Federal Confidentiality of Alcohol and Drug Abuse Patient Records regulations: The Federal rules restrict any use of the information to criminally investigate or prosecute any alcohol or drug abuse patient.[facility] Hospital[facility] the event this information is protected by the Federal Confidentiality of Alcohol and Drug Abuse Patient Records regulations: The Federal rules restrict any use of the information to criminally investigate or prosecute any alcohol or drug abuse patient.[facility] Hospital[facility] the event this information is protected by the Federal Confidentiality of Alcohol and Drug Abuse Patient Records regulations: The Federal rules restrict any use of the information to criminally investigate or prosecute any alcohol or drug abuse patient.[facility] Hospital[facility] the event this information is protected by the Federal Confidentiality of Alcohol and Drug Abuse Patient Records regulations: The Federal rules restrict any use of the information to criminally investigate or prosecute any alcohol or drug abuse patient.[facility] Hospital[facility] the event this information is protected by the Federal Confidentiality of Alcohol and Drug Abuse Patient Records regulations: The Federal rules restrict any use of the information to criminally investigate or prosecute any alcohol or drug abuse patient.[facility] HospitalIn the event this information is protected by the Federal Confidentiality of Alcohol and Drug Abuse Patient Records regulations: The Federal rules restrict any use of the information to criminally investigate or prosecute any alcohol or drug abuse patient.[facility] HospitalIn the event this information is protected by the Federal Confidentiality of Alcohol and Drug Abuse Patient Records regulations: The Federal rules restrict any use of the information to criminally investigate or prosecute any alcohol or drug abuse patient.[facility] HospitalIn the event this information is protected by the Federal Confidentiality of Alcohol and Drug Abuse Patient Records regulations: The Federal rules restrict any use of the information to criminally investigate or prosecute any alcohol or drug abuse patient.[facility] HospitalIn the event this information is protected by the Federal Confidentiality of Alcohol and Drug Abuse Patient Records regulations: The Federal rules restrict any use of the information to criminally investigate or prosecute any alcohol or drug abuse patient.[facility] HospitalIn the event this information is protected by the Federal Confidentiality of Alcohol and Drug Abuse Patient Records regulations: The Federal rules restrict any use of the information to criminally investigate or prosecute any alcohol or drug abuse patient.[facility] HospitalIn the event this information is protected by the Federal Confidentiality of Alcohol and Drug Abuse Patient Records regulations: The Federal rules restrict any use of the information to criminally investigate or prosecute any alcohol or drug abuse patient.[facility] HospitalIn the event this information is protected by the Federal Confidentiality of Alcohol and Drug Abuse Patient Records regulations: The Federal rules restrict any use of the information to criminally investigate or prosecute any alcohol or drug abuse patient.[facility] HospitalIn the event this information is protected by the Federal Confidentiality of Alcohol and Drug Abuse Patient Records regulations: The Federal rules restrict any use of the information to criminally investigate or prosecute any alcohol or drug abuse patient.[facility] HospitalIn the event this information is protected by the Federal Confidentiality of Alcohol and Drug Abuse Patient Records regulations: The Federal rules restrict any use of the information to criminally investigate or prosecute any alcohol or drug abuse patient.[facility] HospitalIn the event this information is protected by the Federal Confidentiality of Alcohol and Drug Abuse Patient Records regulations: The Federal rules restrict any use of the information to criminally investigate or prosecute any alcohol or drug abuse patient.[facility] HospitalIn the event this information is protected by the Federal Confidentiality of Alcohol and Drug Abuse Patient Records regulations: The Federal rules restrict any use of the information to criminally investigate or prosecute any alcohol or drug abuse patient.[facility] Hospital[facility] the event this information is protected by the Federal Confidentiality of Alcohol and Drug Abuse Patient Records regulations: The Federal rules restrict any use of the information to criminally investigate or prosecute any alcohol or drug abuse patient.[facility] HospitalIn the event this information is protected by the Federal Confidentiality of Alcohol and Drug Abuse Patient Records regulations: The Federal rules restrict any use of the information to criminally investigate or prosecute any alcohol or drug abuse patient.[facility] HospitalIn the event this information is protected by the Federal Confidentiality of Alcohol and Drug Abuse Patient Records regulations: The Federal rules restrict any use of the information to criminally investigate or prosecute any alcohol or drug abuse patient.[facility] HospitalIn the event this information is protected by the Federal Confidentiality of Alcohol and Drug Abuse Patient Records regulations: The Federal rules restrict any use of the information to criminally investigate or prosecute any alcohol or drug abuse patient.[facility] HospitalIn the event this information is protected by the Federal Confidentiality of Alcohol and Drug Abuse Patient Records regulations: The Federal rules restrict any use of the information to criminally investigate or prosecute any alcohol or drug abuse patient.[facility] HospitalIn the event this information is protected by the Federal Confidentiality of Alcohol and Drug Abuse Patient Records regulations: The Federal rules restrict any use of the information to criminally investigate or prosecute any alcohol or drug abuse patient.[facility] HospitalIn the event this information is protected by the Federal Confidentiality of Alcohol and Drug Abuse Patient Records regulations: The Federal rules restrict any use of the information to criminally investigate or prosecute any alcohol or drug abuse patient.[facility] HospitalIn the event this information is protected by the Federal Confidentiality of Alcohol and Drug Abuse Patient Records regulations: The Federal rules restrict any use of the information to criminally investigate or prosecute any alcohol or drug abuse patient.[facility] HospitalIn the event this information is protected by the Federal Confidentiality of Alcohol and Drug Abuse Patient Records regulations: The Federal rules restrict any use of the information to criminally investigate or prosecute any alcohol or drug abuse patient.[facility] HospitalIn the event this information is protected by the Federal Confidentiality of Alcohol and Drug Abuse Patient Records regulations: The Federal rules restrict any use of the information to criminally investigate or prosecute any alcohol or drug abuse patient.[facility] Reason for Visit (unrecogniz ed section and content) Reason Comments Patient Question EGD, medication ques tions Reason Onset Date Comments Refill Request 01/02/2022 Reason Onset Date Comments Refill Request 01/07/2022 Reason Comments Patient Question Reason Comments Ankle Injury right x 1 day, twist ed Reason Comments Follow Up Reason Comments Results Bone Density Reason Comments discuss medication For osteoporosis/ re view bone density test Reason Comments Flu Like Symptoms Reason Comments Pain, Throat Muniz, nasal congestion x3 days. Reason Comments Results Reason Comments Faxed ECHO results Reason Onset Date Comments Refill Request 06/16/2022 Reason Onset Date Comments Refill Request 06/23/2022 Reason Comments Orders Reason Comments Recheck 4 month follow up Reason Comments follow up from fall 09/28 - 09/30 Reason Comments Insurance Authorization Reason Onset Date Comments Refill Request 02/08/2023 Reason Onset Date Comments Opened In Error 02/12/2023 Reason Comments Medication Question Reason Comments Ear Pain Right ear pain x 1 d ay Reason Comments 4 month f/u Reason Comments Consult EGD consultation. 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 Procedures CONSULT TO GASTROENTEROLOGY OFFICE/OUTPATIENT [facility] 60-74 MINUTES Clarence Berry, BENCH PRESS OPERATOR.ACCOUNTANT BOOKKEEPER [address] [place] [address] Referral ID Status Reason Start Date Expiration Date V isits Requested Visits Authorized [id number] Closed PCP Requested Referral 05/31/2023 05/30/2024 [address] Specialty Diagnoses / Procedures Referred By Maddison peters Referred To Contact CT IMAGING Diagnoses Injury of head, subsequent encounter Procedures CT BRAIN WO IVCON CT HEAD/BRAIN W/O CONTRAST MATERIAL Clarecne Berry, BENCH PRESS OPERATOR.ACCOUNTANT BOOKKEEPER [address] [place] [address] [place] [id number] Referral ID Status Reason Start Date Expiration Date V isits Requested Visits Authorized [id number] Closed Auto-Generate d Referral 10/10/2022 11/09/2023 1 1 Reason Comments FYI-PT plan of care Reason Comments Home Health Update Reason Comments Hospital F/U Reason Onset Date Comments Refill Request 07/19/2023 Care Teams (unrecognized sec tion and content) Director Of Radio Services Relationship Specialty Start Date End Date Alicia Yun MD [address] [place] [id number] PCP - General Internal Medicine 01/17/17 Director Of Radio Services Relationship Specialty Start Date End Date Alicia Yun MD [address] [place] [id number] PCP - General Internal Medicine 01/17/17 Director Of Radio Services Relationship Specialty Start Date End Date Alicia Yun MD [address] [place] [id number] PCP - General Internal Medicine 01/17/17 Director Of Radio Services Relationship Specialty Start Date End Date Alicia Yun MD [address] [place] [id number] PCP - General Internal Medicine 01/17/17 Director Of Radio Services Relationship Specialty Start Date End Date Alicia Yun MD [address] [place] [id number] PCP - General Internal Medicine 01/17/17 Director Of Radio Services Relationship Specialty Start Date End Date Alicia Yun MD [address] [place] [id number] PCP - General Internal Medicine 01/17/17 Director Of Radio Services Relationship Specialty Start Date End Date Alicia Yun MD [address] [place] [id number] PCP - General Internal Medicine 01/17/17 Director Of Radio Services Relationship Specialty Start Date End Date Alicia Yun MD [address] [place] [address] PCP - General Internal Medicine 01/17/17 Director Of Radio Services Relationship Specialty Start Date End Date Alicia Yun MD [address] [place] [address], [place] [address] PCP - General Internal Medicine 01/17/17 Director Of Radio Services Relationship Specialty Start Date End Date Alicia Yun MD [address] [place] [address], [place] [address] PCP - General Internal Medicine 01/17/17 Director Of Radio Services Relationship Specialty Start Date End Date Alicia Yun MD [address] [place] [address], [place] [address] PCP - General Internal Medicine 01/17/17 Director Of Radio Services Relationship Specialty Start Date End Date Alicia Yun MD [address] [place] [address], [place] [address] PCP - General Internal Medicine 01/17/17 Director Of Radio Services Relationship Specialty Start Date End Date Alicia Yun MD [address] [place] [address], [place] [address] PCP - General Internal Medicine 01/17/17 Director Of Radio Services Relationship Specialty Start Date End Date Alicia Yun MD [address] [place] [address], [place] [address] PCP - General Internal Medicine 01/17/17 Director Of Radio Services Relationship Specialty Start Date End Date Alicia Yun MD [address] [place] [address], [place] [address] PCP - General Internal Medicine 01/17/17 Director Of Radio Services Relationship Specialty Start Date End Date Alicia Yun MD [address] [place] [address] PCP - General Internal Medicine 01/17/17 Director Of Radio Services Relationship Specialty Start Date End Date Alicia Yun MD [address] [place] [address] PCP - General Internal Medicine 01/17/17 Director Of Radio Services Relationship Specialty Start Date End Date Alicia Yun MD [address] [place] [address] PCP - General Internal Medicine 01/17/17 Director Of Radio Services Relationship Specialty Start Date End Date Alicia Yun MD [address] [place] [address] PCP - General Internal Medicine 01/17/17 Director Of Radio Services Relationship Specialty Start Date End Date Alicia Yun MD [address] [place] [address] PCP - General Internal Medicine 01/17/17 Director Of Radio Services Relationship Specialty Start Date End Date Alicia Yun MD [address] [place] [address] PCP - General Internal Medicine 01/17/17 Director Of Radio Services Relationship Specialty Start Date End Date Alicia Yun MD [address] [place] [address] PCP - General Internal Medicine 01/17/17 Director Of Radio Services Relationship Specialty Start Date End Date Alicia Yun MD [address] [place] [address] PCP - General Internal Medicine 01/17/17 Director Of Radio Services Relationship Specialty Start Date End Date Alicia Yun MD [address] [facility] [place], [place] [id number] PCP - General Internal Medicine 01/17/17 Director Of Radio Services Relationship Specialty Start Date End Date Alicia Yun MD [address] [facility] [place], [place] [id number] PCP - General Internal Medicine 01/17/17 Director Of Radio Services Relationship Specialty Start Date End Date Alicia Yun MD [address] [facility] [place], [place] [id number] PCP - General Internal Medicine 01/17/17 Director Of Radio Services Relationship Specialty Start Date End Date Alicia Yun MD [address] [facility], [place] [id number] PCP - General Internal Medicine 01/17/17 Director Of Radio Services Relationship Specialty Start Date End Date Alicia Yun MD [address] [place], [place] [id number] PCP - General Internal Medicine 01/17/17 INFORMATION SOURCE (unrecogn ized section and content) DATE CREATED AUTHOR AUTHOR'S ORGANIZ ATION 07/12/2023 [facility] FOR RECORDS PERTAINING TO PATIENTS WHO ARE OR HAVE BEEN ENROLLED IN A CHEMICAL DEPENDENCY/SUBSTANCEABUSE PROGRAM, SOME INFORMATION MAY BE OMITTED. This clinical summary was aggregated from multiple sources. Caution should be exercised in using it in the provision of clinical care. This summary normalizes information from multiple sources, and as a consequence, information in this document may materially change the coding, format and clinical context of patient data. In addition, data may be omitted in some cases. CLINICAL DECISIONS SHOULD BE BASED ON THE PRIMARY CLINICAL RECORDS. [employer] [facility]. provides no warranty or guarantee of the accuracy or completeness of information in this document.
--- NOTE | 2023-08-10 06:38 | MRI_ITS ---
STUDY: MRI CERVICAL SPINE WITHOUT CONTRAST REASON FOR EXAM: Female, 83 years old. Cervical spinal stenosis; ataxia TECHNIQUE: Standardized fat and water weighted pulse sequences were obtained in the sagittal and axial planes. COMPARISON: MRI cervical spine without contrast 06/11/2020 FINDINGS: T2 hyperintensity of the han due to chronic white matter change and unchanged. Normal remaining brainstem and foramen magnum. Normal craniovertebral junction. Normal anterior atlantoaxial articulation. Normal odontoid process. Normal cervical lordosis. Normal vertebral bodies and posterior osseous elements. C2-3: Normal endplates. Normal disc height, signal and morphology. Normal central canal and intervertebral neural foramina. C3-4: Normal endplates. Normal disc height. Minimal ventral extradural defect due to posterior bulging annulus has decreased in size. Normal central canal and intervertebral neural foramina. C4-5: Normal endplates. Normal disc height. Mild decrease in size of posterior bulging annulus. Normal central canal and intervertebral neural foramina. C5-6: Normal endplates. Normal disc height, signal and morphology. Normal central canal and intervertebral neural foramina. C6-7: Normal endplates. Normal disc height, signal and morphology. Normal central canal and intervertebral neural foramina. C7-T1: Normal endplates. Normal disc height, signal and morphology. Normal central canal and intervertebral neural foramina. T1-T2, T2-T3, T3-T4 and T4-T5: (Sagittal only). Normal endplates. Normal disc height, signal and morphology. Normal central canal and intervertebral neural foramina. Normal cervical cord. Normal included upper thoracic spinal cord. Normal visualized soft tissue structures. MRI/Spine Cervical (Routine) IMPRESSION: 1. No MRI evidence of cervical extruded disc fragment, disc protrusion, spinal stenosis or cervical nerve root displacement. 2. Normal cervical spinal cord. 3. Mild decrease in size of small posterior bulging annulus at C3-C4 and C4-C5 disc space levels when compared to 06/11/2020. Electronically Signed: Kurtis Mark MD at 15:29 EST ,
--- NOTE | 2023-08-10 06:38 | MRI_ITS ---
STUDY: MRI LUMBAR SPINE WITHOUT CONTRAST REASON FOR EXAM: Female, 83 years old. Assess left side radiculopathy TECHNIQUE: Standardized fat and water weighted pulse sequences were obtained in the sagittal and axial planes. COMPARISON: CT abdomen and pelvis with and without contrast 03/18/2019. FINDINGS: T11-T12 and T12-L1: (Sagittal only). Normal endplates. Normal disc height, hydration and morphology. No ventral extradural defects. Normal central canal and bilateral intervertebral neural foramina. Normal lumbar lordosis. There is no substantial scoliosis. Normal conus medullaris that terminates at the upper L1 vertebral body level. L1-2: Normal endplates. Normal disc height, hydration and morphology. Normal bilateral facet joints. Normal central canal and bilateral lateral recesses. Normal bilateral intervertebral neural foramina. L2-3: Normal endplates. Normal disc height, hydration and morphology. Normal bilateral facet joints. Normal central canal and bilateral lateral recesses. Normal bilateral intervertebral neural foramina. L3-4: Normal endplates. Mild disc space height narrowing. Left posterior caudal disc extrusion causing severe stenosis of the left lateral recess and displacement of the left L4 nerve root sleeve. Normal right lateral recess. Normal central canal. Normal facet joints. Normal bilateral intervertebral neural foramina. L4-5: Normal endplates. Normal disc height. Mild ventral extradural defect due to posterior bulging annulus. Pronounced central canal stenosis with an AP canal diameter of 5 mm. Normal bilateral lateral recesses. Mild dorsal epidural lipomatosis. Normal bilateral intervertebral neural foramina. L5-S1: Normal endplates. Normal disc height. Small posterior bulging annulus without ventral extradural defect due to presence of ventral epidural fat. Pronounced central canal stenosis with an AP canal diameter of 5 mm. The moderately pronounced right degenerative facet hypertrophy. Mild left degenerative facet arthropathy. Normal bilateral lateral recesses. Moderate stenosis of the right intervertebral neural foramen is unchanged. Normal left intervertebral neural foramen. Normal visualized sacral ala. Normal visualized paraspinous soft tissue structures. MRI/Spine Lumbar (Routine) IMPRESSION: 1. Left L3-L4 posterior caudal disc extrusion causing severe stenosis of the left lateral recess and displacement of the left L4 nerve root sleeve. 2. Pronounced central canal stenosis at L4-L5 disc space level with an AP canal diameter 5 mm secondary to developmentally short pedicles, mild dorsal epidural lipomatosis and small posterior bulging annulus. 3. Pronounced central canal stenosis at L5-S1 disc space level with an AP canal diameter 5 mm secondary to developmentally short pedicles and mild dorsal epidural lipomatosis. Additionally, moderate stenosis of the right intervertebral neural foramen. Electronically Signed: Kurtis Mark MD at 14:03 EST ,
== END | disposition home or self-care (01) ==
LOC: MRI 06:23
PROVIDERS: PCP Internal Medicine; Referring Provider Orthopaedic Surgery Sports Medicine; Visit Provider Orthopaedic Surgery Sports Medicine
DX: M48.02 Spinal stenosis, cervical region (principal); R26.9 Unspecified abnormalities of gait and mobility; M54.16 Radiculopathy, lumbar region
CPT/HCPCS: 72141; 72148

== ENCOUNTER → 2024-01-25 | Outpatient (CLI) | payer MEDICARE, OTHER, SELFPAY | END | disposition home or self-care (01) | LOC: PSN 10:57 | PROVIDERS: PCP Internal Medicine; Referring Provider Internal Medicine Critical Care Medicine; Visit Provider Internal Medicine Critical Care Medicine | DX: J47.9 Bronchiectasis, uncomplicated (principal) | CPT/HCPCS: 94060; 94726; 94729 ==

== ENCOUNTER 2024-02-17 13:31 | Emergency (ER) | payer MEDICARE, OTHER, SELFPAY ==
[2024-02-17] VITALS (9 sets, daily range): BP systolic 129–167; BP diastolic 84–118; PULSE 76–92; RESP 13–22; TEMP 36.4; O2SAT 93–99
--- NOTE | 2024-02-17 13:56 | RAD_ITS ---
STUDY: XR Chest 2 Views 02/17/2024 2:22 PM REASON FOR EXAM: Female, 83 years old. cough COMPARISON: 06/10/2023 TECHNIQUE: XR Chest 2 Views FINDINGS: There is no demonstrated pleural abnormality. Normal heart size. Normal mediastinum. Normal loree. Prominent appearing increased interstitial lung markings. Normal visualized pulmonary arteries. There is atherosclerotic calcification of the aortic arch with tortuosity. There are diffuse degenerative changes of the visualized thoracic spine. There is degenerative osteoarthritis of the bilateral shoulders. There are no acute findings of the upper abdomen. RAD/Chest PA and Lateral IMPRESSION: There are no acute findings. Electronically Signed: Yosvany Bar MD at 14:43 EDT ,
--- NOTE | 2024-02-17 13:56 | EKG12_ITS ---
Test Reason : SOB/CP Blood Pressure : / mmHG Vent. Rate : 088 BPM Atrial Rate : 088 BPM P-R Int : 160 ms QRS Dur : 082 ms QT Int : 402 ms P-R-T Axes : 064 -16 059 degrees QTc Int : 486 ms Sinus rhythm with occasional Premature ventricular complexes Minimal voltage criteria for LVH, may be normal variant ( R in aVL ) Borderline ECG Confirmed by Talon Izaguirre ([id number]), map editor ANDRIY MOULTON ([id number]) on 02/18/2024 2:07:45 PM Referred By: SHANI Confirmed By:Talon Izaguirre
--- NOTE | 2024-02-17 13:57 | EX.ED.VIS.UR ---
HPI HPI - URI History of Present Illness Chief Complaint: Shortness of Breath Informant: patient Onset/Context/Timing Onset: Days Context: Gradual Onset Timing: Continuous Current Severity: Mild Maximum Severity: Mild Associated Symptoms Associated Symptoms: Positive for Headache, Myalgias, Nausea, Shortness of Breath and Nonproductive cough Narrative Narrative: 83-year-old female was recently admitted to the hospital for respiratory infection with discharge. About a week ago she started having cough shortness of breath and scattered wheezes. She has had a headache. Nonproductive cough. Subjective fever and chills. She was seen by [facility] on 11 February started on doxycycline twice daily. did a COVID test on her home that was reportedly negative. She denies any leg pain or swelling. The only chest pain she is having is with coughing. She denies any history of COPD or asthma. She is not on home oxygen. She has never had a DVT or PE or any recent risk factors. No recent travel, surgery or immobilization. No hemoptysis. CAT scan she did have a left upper lobe lobectomy in the past due to cancer. Prior similar symptoms: Yes Recent Illness/Hospitalization: No ROS ROS ED ROS Narrative Cough. Subjective fever and chills. Mild shortness of breath and wheezing. Review of Systems ROS Unobtainable: Denies due to encephalopathy Constitutional Constitutional ED: Reports chills, fever(s) and subjective Eyes Eyes: Denies blurry vision ENT ENT ED: Denies ear pain or rhinorrhea Cardiovascular Cardiovascular: Denies chest pain Respiratory/Chest Respiratory/Chest: Reports cough and dyspnea Gastrointestinal Gastrointestinal: Reports nausea and vomiting; Denies abdominal pain, constipation, diarrhea or melena Genitourinary Genitourinary ED: Denies dysuria or hematuria Musculoskeletal Musculoskeletal: Reports arthralgias Integumentary Denies abscess Neurologic Neurologic: Reports headache(s) Psychiatric Psychiatric: Denies anxiety Endocrine Endocrinology: Denies cold intolerance Hematologic/Lymphatic Hematologic/Lymphatic: Denies easy bleeding, easy bruising or lymphadenopathy Allergic/Immunologic Allergic/Immunologic ED: Denies mouth swelling, tongue swelling or urticaria [facility] Medical History Left lumbar radiculopathy Fatigue Overweight (BMI 25.0-29.9) Migraine without aura, not intractable, without status migrainosus 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 disease History of ischemic stroke Macular degeneration 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 difficile diarrhea Acute gastritis Enlargement of lymph nodes Migraine Restless legs Depression Anxiety GERD (gastroesophageal reflux disease) Carcinoid tumor Chronic cough Accelerated essential hypertension Essential (primary) hypertension Acute chest pain Home Medications ?Medication ?Instructions ?Recorded ?Last Taken ?Type cholecalciferol (vitamin D3) 25 1,000 unit PO DAILY supplement 03/13/17 06/13/23 History mcg (1,000 unit) tablet metoprolol succinate 200 mg 200 mg PO DAILY heart 03/13/17 01/01/20 History tablet,extended release 24 hr lorazepam 1 mg tablet 1 mg PO DAILY anxiety 08/28/18 01/01/20 History esomeprazole magnesium 40 mg 40 mg PO DAILY gerd 01/01/20 06/13/23 History capsule,delayed release aspirin 81 mg chewable tablet 81 mg PO DAILY@0800 heart ##30 01/03/20 Unknown Rx fesoterodine 4 mg tablet,extended 8 mg PO DAILY bladder 10/10/21 Unknown History release 24 hr (Toviaz) pen needle, diabetic 32 gauge x #450 ea 12/14/21 Unknown Rx 1/4 (BD Ultra-Fine Micro Pen Needle) blood sugar diagnostic (OneTouch #100 ea 12/25/22 Unknown Rx Verio test strips) pyridoxine (vitamin B6) 250 mg 250 mg PO DAILY vitamin 02/06/23 Unknown History tablet albuterol sulfate 90 mcg/actuation 2 puff inhalation Q6H PRN 03/07/23 Unknown Rx aerosol inhaler shortness of breath or wheezing #6.7 grams furosemide 20 mg tablet (Lasix) 20 mg PO DAILY bp 06/11/23 Unknown History omeprazole 40 mg capsule,delayed 40 mg PO DAILY gerd 06/11/23 Unknown History release rosuvastatin 10 mg tablet 5 mg PO QHS hld 06/11/23 Unknown History acetaminophen 500 mg tablet 1,000 mg (2 x 500 mg) PO Q6H PRN 06/20/23 Unknown Rx PRN Pain Score 1-5 #0 tabs gabapentin 300 mg capsule 300 mg PO BID 30 days #60 caps 06/20/23 Unknown Rx oxycodone 5 mg tablet 5 mg PO Q4H PRN PRN Pain Score 06/20/23 Unknown Rx 6-10 7 days #42 tabs sennosides 8.6 mg-docusate sodium 1 tab PO BID 30 days #60 tabs 06/20/23 Unknown Rx 50 mg tablet (Stool Softener-Stimulant Laxative) insulin glargine 100 unit/mL (3 20 unit (0.2 mL) subcut QHS dm #18 08/21/23 Unknown Rx mL) subcutaneous pen (Lantus mL Solostar U-100 Insulin) duloxetine 30 mg capsule,delayed 30 mg PO QAM mood #90 caps 12/04/23 Unknown Rx release duloxetine 60 mg capsule,delayed 60 mg PO QHS mood #90 caps 12/04/23 Unknown Rx release Novolog FlexPen U-100 Insulin 100 48 unit (0.48 mL) subcut TID 12/26/23 Unknown Rx unit/mL (3 mL) subcutaneous #129.6 mL (insulin aspart U-100) guaifenesin 1,200 mg tablet, 1,200 mg PO Q12H #60 tabs 02/07/24 Unknown Rx extended release 12 hr L.acidoph, paracasei,B. lactis 10 cell PO DAILY 02/17/24 Unknown History billion cell capsule cephalexin 250 mg capsule 250 mg PO QHS 02/17/24 Unknown History collagen (bovine) 100 % topical 1 applic topical DAILY 02/17/24 Unknown History powder cranberry concentrate-ascorbic 1 cap PO DAILY 02/17/24 Unknown History acid 140 mg-100 mg capsule (Cranberry Plus Vitamin C) prednisone 20 mg tablet 40 mg (2 x 20 mg) PO DAILY 7 days 02/17/24 Unknown Rx #14 tabs Allergy/AdvReac Type Severity Reaction Status Date / Time adhesive tape Allergy Hives/Rash Verified 02/17/24 13:35 ciprofloxacin (From Cipro) Allergy Photosensitivity Verified 02/17/24 13:35 & dermatitis pioglitazone (From Actos) Allergy Unknown Verified 02/17/24 13:35 codeine AdvReac Upset Verified 02/17/24 13:35 Stomach ibandronate sodium (From AdvReac GI Verified 02/17/24 13:35 Boniva) upset/esophageal burning ibuprofen AdvReac GI upset Verified 02/17/24 13:35 Iodinated Contrast Media AdvReac Vomiting Verified 02/17/24 13:35 (CONTRASTS) iodine AdvReac Vomiting Verified 02/17/24 13:35 lansoprazole AdvReac Diarrhea Verified 02/17/24 13:35 metformin AdvReac Diarrhea Verified 02/17/24 13:35 miconazole (From Neosporin AdvReac Rash/Bliste Verified 02/17/24 13:35 AF) rs nabumetone (From Relafen) AdvReac GI upset Verified 02/17/24 13:35 pantoprazole (From Protonix) AdvReac Diarrhea Verified 02/17/24 13:35 sucralfate (From Carafate) AdvReac feels Verified 02/17/24 13:35 poorly Family History Father Lung cancer Colon cancer Mother Mesothelioma Hypertension Grandmother Heart disease Surgical History nerve block Hx of cataract surgery History of lung biopsy H/O endoscopy Spinal injections S/P rotator cuff repair S/P lobectomy of lung Social History household members: spouse housing: house pets and animals: No Smoking Status: Never smoker second hand exposure: No alcohol intake: current alcohol intake frequency: holidays/special occasions only substance use type: does not use EXAM Physical Exam Narrative Exam Narrative: Well-appearing 83-year-old female. Vital signs stable afebrile. Pulse ox 98% on room air. No hypoxia. H EENT exam unremarkable. Moist with membranes. Neck nontender no JVD. Lungs clear to auscultation bilaterally. Heart regular rhythm rate about 90 no murmur. Chest wall and ribs are nontender. Abdomen soft nontender. Moving all 4 extremities. Calves are nontender without edema or cords. Neurologically she is awake and alert no focal motor deficits. Const Vital Signs: 02/17/24 13:32 02/17/24 13:51 02/17/24 14:02 Temperature 97.6 F L Temperature Source Temporal Pulse Rate 90 Respiratory Rate 22 H Respiratory Effort Short of Breath Accessory Muscle Use Respiratory Depth Deep Respiratory Pattern Tachypnea Blood Pressure 167/92 H Blood Pressure Mean 117 Pulse Ox 98 93 Oxygen Delivery Method Room Air Room Air Room Air 02/17/24 14:02 02/17/24 14:31 Temperature Temperature Source Pulse Rate 85 85 Respiratory Rate 14 19 H Respiratory Effort Respiratory Depth Respiratory Pattern Blood Pressure Blood Pressure Mean Pulse Ox 95 Oxygen Delivery Method Positive well nourished and well developed; Negative for cachectic or contractures General Appearance ED: well developed and NAD; Negative for cachectic, contractures, cyanotic, diaphoretic or pallor Nutritional Appearance: Negative for cachectic HEENT Reports moist mucous membranes; Denies dry mucous membranes normocephalic and atraumatic Mouth ED: No dry mucous membranes Mouth: No dry mucous membranes Throat: posterior oropharynx normal Eyes PERRL and EOMs intact bilaterally General Eye ED: Negative for pale conjunctiva or scleral icterus Neck no lymphadenopathy, supple, no meningeal signs and no JVD General: Negative for anterior neck swelling or lymphadenopathy Resp normal respiratory effort and No clear to auscultation bilaterally Resp Narrative: Few scattered expiratory wheezes. No rales or rhonchi. Equal and symmetrical. Auscultation: wheezes; Negative for rales or rhonchi Cardio S1 normal heart sound, S2 normal heart sound and no murmurs Rate: regular rate Rhythm: regular rhythm GI non-tender, non-distended and no masses Inspection: Negative for abdominal distention Auscultation: normoactive bowel sounds Palpation: soft; Negative for tender, guarding or mass Back/Spine no CVA tenderness and normal ROM General Back: Negative for CVA tenderness Cervical Spine: Negative for cervical spine tenderness Thoracic Spine / Upper Back: Negative for thoracic spinal tenderness Lumbar Spine / Lower Back: Negative for lumbar spinal tenderness Sacrum: Negative for tenderness Extremity normal to inspection and full ROM General Extremety ED: Negative for cyanosis, tenderness or other findings General Extremity: Negative for cyanosis or other findings Neuro oriented x3 and CN's II-XII intact bilaterally Sensorium / Orientation: alert, oriented to person, oriented to place and oriented to time; Negative for orientation impaired, lethargic or stuporous Motor Exam: strength 5/5 throughout; Negative for general weakness or strength abnormal Psych mental status grossly normal Attitude: No agitated Mood & Affect: Negative for depressed, anxious or tearful Skin General Skin Exam: Negative for jaundice or pallor Lesions: no lesions Rashes: no rashes Trauma: Negative for abrasion or laceration MDM MDM MDM Narrative Medical decision making narrative: 83-year-old female suspect a URI rule out pneumonia. She will be given a DuoNeb for her wheezing. Screening labs and chest x-ray. Repeat exam patient is doing well. She will be discharged home on prednisone 40 minutes a day for a week first dose given here. She has an inhaler at home. She is already on the antibiotic doxycycline she only has a few days left of that. I went over her test results with her and her . They are comfortable with the plan for discharge. She knows to watch her blood sugars closely due to the prednisone. History & Record Review Discussion w/independent historian: Patient, Family and Significant other Additional record(s) reviewed:: Prior inpatient record, Prior outpatient record, Prior ED visit and Prior labs Lab Data Attestation: I reviewed the patient's lab results. Lab results narrative: CBC normal. White count 7. H&H 13 and 39. Platelets 223. Electrolytes unremarkable gap 9. Normal BUN and creatinine. Glucose 240. Chest x-ray unremarkable. COVID, flu and RSV all negative. Labs: Laboratory Results - last 24 hr 02/17/24 13:50 WBC 7.7 RBC 4.31 Hgb 13.7 Hct 39.4 MCV 91.4 MCH 31.8 MCHC 34.8 RDW Std Deviation 45.0 H RDW Coeff of Win 13.4 Plt Count 223 MPV 9.5 Immature Gran % (Auto) 0.300 Neut % (Auto) 69.2 Lymph % (Auto) 19.1 Waller % (Auto) 10.0 Eos % (Auto) 1.0 Baso % (Auto) 0.4 Absolute Neuts (auto) 5.3 Absolute Lymphs (auto) 1.47 Nucleated RBC % 0 Sodium 136 Potassium 3.5 Chloride 103 Carbon Dioxide 24.0 Anion Gap 9 BUN 17 Creatinine 0.81 Est GFR (MDRD) Af Amer 87 Est GFR (MDRD) Non-Af 72 BUN/Creatinine Ratio 21.0 H Glucose 240 H Calcium 9.2 Radiography Chest X-Ray - ED: 2 View, Read by ED Physician, Heart, Lungs, Mediastinum, Bony Structures, No Acute Disease and Chronic Changes Diagnostic Testing: Clinical Impression(s) from Imaging Studies Chest X-Ray 02/17/24 13:56 IMPRESSION: There are no acute findings. Electronically Signed: Yosvany Bar MD at 14:43 EDT , Chest x-ray, 2 views, AP and lateral interpreted by myself shows no acute abnormality. Normal cardiac silhouette. Normal lung singleton. No pneumonia. Normal mediastinum. Rhythm Strip Rhythm Strip: Sinus Rhythm Rate: 88 Ectopy: PVC(s) EKG Initial EKG: Attestation: I personally reviewed and interpreted this EKG as follows: Interpretation: Sinus Rhythm and No Acute Injury Pattern Comments: Sinus rhythm with occasional PVCs. Rate 88. No acute signs of WA or ischemia. Discharge Plan Triage Chief Complaint: Shortness of Breath ED Provider: Laureano Hernandez Dx/Rx/DC Orders Clinical Impression: Bronchitis, History of lung cancer, History of diabetes mellitus Instructions: ED Bronchitis with Wheezing (Adult) Prescriptions: New prednisone 20 mg tablet 40 mg PO DAILY 7 Days Qty: 14 0RF No Action lorazepam 1 mg tablet 1 mg PO DAILY fesoterodine [Toviaz] 4 mg tablet extended release 24 hr 8 mg PO DAILY albuterol sulfate 90 mcg/actuation HFA aerosol inhaler 2 puff inhalation Q6H PRN (Reason: shortness of breath or wheezing) Qty: 6.7 3RF pyridoxine (vitamin B6) 250 mg tablet 250 mg PO DAILY guaifenesin 1,200 mg tablet extended release 12hr 1,200 mg PO Q12H Qty: 60 6RF metoprolol succinate 200 MG tablet extended release 24 hr 200 mg PO DAILY Patient Comments: BLOOD PRESSURE/HEART cholecalciferol (vitamin D3) 1,000 UNIT tablet 1,000 unit PO DAILY Patient Comments: SUPPLEMENT esomeprazole magnesium 40 MG capsule,delayed release(DR/EC) 40 mg PO DAILY aspirin 81 MG tablet,chewable 81 mg PO DAILY@0800 Qty: 30 0RF rosuvastatin 10 mg tablet 5 mg PO QHS furosemide [Lasix] 20 mg tablet 20 mg PO DAILY omeprazole 40 mg capsule,delayed release(DR/EC) 40 mg PO DAILY sennosides-docusate sodium [Stool Softener-Stimulant Laxat] 8.6-50 mg Tablet 1 tab PO BID 30 Days Qty: 60 0RF acetaminophen 500 mg Tablet 1,000 mg PO Q6H PRN PRN (Reason: Pain Score 1-5) Qty: 0 0RF gabapentin 300 mg Capsule 300 mg PO BID 30 Days Qty: 60 0RF oxycodone 5 mg Tablet 5 mg PO Q4H PRN PRN (Reason: Pain Score 6-10) 7 Days Qty: 42 0RF L.acidoph, paracasei,B. lactis 10 billion cell capsule PO DAILY cephalexin 250 mg capsule 250 mg PO QHS collagen (bovine) 100 % powder 1 applic topical DAILY Rx Instructions: apply a 1/4 inches inch thick layer, do not pack tightly; cover using a non-adherent dressing Cranberry Plus Vitamin C 140-100 mg capsule 1 cap PO DAILY (DME) pen needle, diabetic [BD Ultra-Fine Micro Pen Needle] 32 gauge x 1/4 needle See Rx Instructions .ROUTE .MEDSUPPLY Qty: 450 1RF Rx Instructions: 4x/day (DME) OneTouch Verio test strips Strip See Rx Instructions .ROUTE .MEDSUPPLY Qty: 100 3RF Rx Instructions: daily insulin glargine [Lantus Solostar U-100 Insulin] 100 unit/mL (3 mL) insulin pen 20 unit SC QHS Qty: 18 1RF duloxetine 60 mg capsule,delayed release(DR/EC) 60 mg PO QHS Qty: 90 2RF duloxetine 30 mg capsule,delayed release(DR/EC) 30 mg PO QAM Qty: 90 2RF insulin aspart U-100 [Novolog FlexPen U-100 Insulin] 100 unit/mL (3 mL) insulin pen 48 unit subcut TID Qty: 129.6 1RF Primary Care Provider: Emily Yun Referrals: Emily Yun MD [Primary Care Provider] - 3-5 Days if not improving Activity Restrictions/Additional Instructions: Patient antibiotic you are on take it with food on your stomach. Prednisone 40 mg a day for the next week. Use your inhaler as needed. 2 puffs every 2-4 hours. Follow-up with your doctor to ensure you are improving if you feel worse return to the emergency department. Watch your blood sugars closely because the prednisone may cause them to be elevated. Your labs, EKG and chest x-ray look good today. No signs of pneumonia. Print Language: Lithuanian Disposition Disposition: Home, Self Care
[2024-02-17] MEDS: Ipratropium/Albuterol Sulfate 3 ML AMPUL.NEB INHALATION ×2 (14:01→16:21)
[2024-02-17 14:03] LABS: Absolute Lymphocyte Count 1.47 X10^3/uL (0.83-4.51); Absolute Neutrophil Count 5.3 X10^3/uL (2.0-7.7); Basophil# 0.03 X10^3/uL; Basophil% 0.4 % (0-1); Eosinophil# 0.08 X10^3/uL; Hematocrit 39.4 % (37-47); Hemoglobin 13.7 g/dL (12.0-15.0); Lymphocyte # 1.47 X10^3/ul (0.83-4.51); Lymphocyte % 19.1 % (19-41); Mean Corp Hgb Conc 34.8 g/dL (32-36); Mean Corpuscular Hgb 31.8 pg (27.0-32.0); Mean Corpuscular Volume 91.4 fL (81-99); Mean Platelet Vol. 9.5 fl (6.2-12.0); Monocyte# 0.77 X10^3/uL; NRBC Flagged by Analyzer 0 % (0-5); Neutrophil # 5.32 X10^3/uL (2.7-7.7); Neutrophil % 69.2 % (47-70); Platelet Count 223 K/mm3 (150-450); RBC Distribution Width CV 13.4 % (11.6-14.6); Red Blood Count 4.31 M/mm3 (4.2-5.4); White Blood Count 7.7 K/mm3 (4.4-11.0)
[2024-02-17 14:17] LABS: Anion Gap 9 (5-15); BUN 17 mg/dL (7-18); Calcium,Total 9.2 mg/dL (8.5-10.1); Chloride 103 mmol/L (98-107); Creatinine, Serum 0.81 mg/dL (0.55-1.02); EST Glomerular Filtration Rate 72 mL/min (>60); Est Glom Filt Rate - Afr Amer 87 mL/min (>60); Glucose 240 mg/dL (74-106); Potassium 3.5 mmol/L (3.5-5.1); Sodium Level 136 mmol/L (136-145)
[2024-02-17] MEDS: predniSONE 20 MG Tablet 40 MG PO (16:05)
== END 2024-02-17 17:21 | disposition home or self-care (01) ==
PROVIDERS: Emergency Provider Emergency Medicine; PCP Internal Medicine; Visit Provider Emergency Medicine
DX: J40 Bronchitis, not specified as acute or chronic (principal); E11.9 Type 2 diabetes mellitus without complications; I10 Essential (primary) hypertension; K21.00 Gastro-esophageal reflux disease with esophagitis, without bleeding; R51.9 Headache, unspecified; Z85.118 Personal history of other malignant neoplasm of bronchus and lung
CPT/HCPCS: 71046; 80048; 85025; 87631; 93005; 94640; 99282; A4216

== ENCOUNTER 2024-05-01 12:05 | Emergency (ER) | payer MEDICARE, SELFPAY ==
[2024-05-01 12:05] VITALS: BP 171/87; PULSE 111; RESP 14; TEMP 37.2; O2SAT 95
[2024-05-01 15:32] VITALS: BP 192/81; PULSE 105; RESP 18; O2SAT 97
[2024-05-01 16:17] VITALS: BMI 29.8
--- NOTE | 2024-05-01 16:30 | EKG12_ITS ---
Test Reason : Blood Pressure : / mmHG Vent. Rate : 109 BPM Atrial Rate : 109 BPM P-R Int : 120 ms QRS Dur : 080 ms QT Int : 368 ms P-R-T Axes : 000 -19 048 degrees QTc Int : 495 ms Sinus tachycardia ; Low atrial rhythm Minimal voltage criteria for LVH, may be normal variant ( R in aVL ) Borderline ECG Confirmed by Talon Izaguirre ([id number]), editorial writer ANDRIY MOULTON ([id number]) on 05/05/2024 10:47:03 AM Referred By: Confirmed By:Talon Izaguirre
--- NOTE | 2024-05-01 16:30 | CT_ITS ---
STUDY: CT ABDOMEN AND PELVIS WITH CONTRAST REASON FOR EXAM: Female, 84 years old. abdominal pain RADIATION DOSAGE (If Supplied By Facility): CTDIvol = ( 14.42 ) mGy, DLP = ( 779.15 ) mGycm TECHNIQUE: Transaxial images were obtained from the dome of the diaphragm to the symphysis pubis without oral contrast. IV 100mL Isovue-370 was administered. Sagittal and coronal images were reconstructed. Individualized dose optimization techniques were used for this CT. COMPARISON: March 18, 2019 FINDINGS: Minor left basilar atelectasis. The visualized portions of the heart are within normal limits. Small hiatal hernia is present. Mild thickening of the levine of the distal esophagus which may be consistent with chronic esophagitis. Nonspecific fatty infiltrated liver without mass or bile duct dilatation. Normal gallbladder and extrahepatic biliary system. Tiny calcified granulomata in normal size spleen Normal pancreas. Normal bilateral adrenal glands. Normal right kidney. Normal left kidney. Mild concentric thickening of the levine of stomach which may be consistent with gastritis. Normal small intestine. Normal colon. No evidence for acute appendicitis Atherosclerotic changes of the aorta without evidence for aneurysm. Normal inferior vena cava. Normal retroperitoneum. Incompletely distended mildly thick walled bladder likely of no significance. Large bilateral fat-containing inguinal hernias. Normal osseous structures. CT/Abdomen/Pelvis W IV Cont ONLY IMPRESSION: Small hiatal hernia and findings which may be consistent with chronic esophagitis. There is also mild thickening of the levine of stomach possibly representing gastritis No evidence for small bowel obstruction or other acute abnormality.. Electronically Signed: Dada Martinez MD at 17:58 EDT ,
[2024-05-01] MEDS: Ondansetron 4 MG/2 ML Vial IV (16:48)
[2024-05-01] MEDS: 0.9% Normal Saline (1000mL) 1,000 ML 1000 ML IV (16:48)
[2024-05-01] MEDS: Morphine 2 MG/ML Syringe IV (16:48)
--- NOTE | 2024-05-01 16:49 | EDS_ITS ---
HPI History of Present Illness Chief Complaint: Abd Pain Narrative Narrative: Chief complaint and HPI: Flulike symptoms. 84-year-old female with history of DM 2, HTN, HLD presents for evaluation of multiple complaints. Patient states since Sunday she has been having intermittent headaches, cough, nausea, vomiting, diarrhea. She endorses generalized abdominal pain as well as decreased p.o. intake. Patient states her symptoms have not improved. She endorses some increased weakness. She denies any fever, URI symptoms, chest pain, dysuria. Review of systems: See HPI Medications: As listed on the chart Allergies: As listed on the chart PFSH: Per chart Vital signs: As listed on the chart. Reviewed. Physical exam: Gen: A&O x3, NAD Head: Normocephalic, atraumatic Eyes: No sclera icterus, conjunctiva clear, PERRL ENT: Dry mucous membranes Neck: Trachea midline, No JVD CV: Tachycardic, regular rhythm, no murmurs, no peripheral edema Resp: Lungs CTA BL, no w/r/c GI: Abd soft, non-distended, tenderness to palpation diffusely, no r/r/g Musc: Full ROM, no deformity Skin: Warm, dry Neuro: Alert, oriented, grossly intact, sensation intact Psych: Cooperative, appropriate mood and affect [facility] Medical History Left lumbar radiculopathy Fatigue Overweight (BMI 25.0-29.9) Migraine without aura, not intractable, without status migrainosus 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 disease History of ischemic stroke Macular degeneration 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 difficile diarrhea Acute gastritis Enlargement of lymph nodes Migraine Restless legs Depression Anxiety GERD (gastroesophageal reflux disease) Carcinoid tumor Chronic cough Accelerated essential hypertension Essential (primary) hypertension Acute chest pain Home Medications ?Medication ?Instructions ?Recorded ?Last Taken ?Type cholecalciferol (vitamin D3) 25 1,000 unit PO DAILY supplement 03/13/17 06/13/23 History mcg (1,000 unit) tablet metoprolol succinate 200 mg 200 mg PO DAILY heart 03/13/17 01/01/20 History tablet,extended release 24 hr lorazepam 1 mg tablet 1 mg PO DAILY anxiety 08/28/18 01/01/20 History esomeprazole magnesium 40 mg 40 mg PO DAILY gerd 01/01/20 06/13/23 History capsule,delayed release aspirin 81 mg chewable tablet 81 mg PO DAILY@0800 heart ##30 01/03/20 Unknown Rx fesoterodine 4 mg tablet,extended 8 mg PO DAILY bladder 10/10/21 Unknown History release 24 hr (Toviaz) pen needle, diabetic 32 gauge x #450 ea 12/14/21 Unknown Rx 1/4 (BD Ultra-Fine Micro Pen Needle) blood sugar diagnostic (OneTouch #100 ea 12/25/22 Unknown Rx Verio test strips) pyridoxine (vitamin B6) 250 mg 250 mg PO DAILY vitamin 02/06/23 Unknown History tablet albuterol sulfate 90 mcg/actuation 2 puff inhalation Q6H PRN 03/07/23 Unknown Rx aerosol inhaler shortness of breath or wheezing #6.7 grams furosemide 20 mg tablet (Lasix) 20 mg PO DAILY bp 06/11/23 Unknown History omeprazole 40 mg capsule,delayed 40 mg PO DAILY gerd 06/11/23 Unknown History release rosuvastatin 10 mg tablet 5 mg PO QHS hld 06/11/23 Unknown History acetaminophen 500 mg tablet 1,000 mg (2 x 500 mg) PO Q6H PRN 06/20/23 Unknown Rx PRN Pain Score 1-5 #0 tabs gabapentin 300 mg capsule 300 mg PO BID 30 days #60 caps 06/20/23 Unknown Rx oxycodone 5 mg tablet 5 mg PO Q4H PRN PRN Pain Score 06/20/23 Unknown Rx 6-10 7 days #42 tabs sennosides 8.6 mg-docusate sodium 1 tab PO BID 30 days #60 tabs 06/20/23 Unknown Rx 50 mg tablet (Stool Softener-Stimulant Laxative) duloxetine 30 mg capsule,delayed 30 mg PO QAM mood #90 caps 12/04/23 Unknown Rx release duloxetine 60 mg capsule,delayed 60 mg PO QHS mood #90 caps 12/04/23 Unknown Rx release Novolog FlexPen U-100 Insulin 100 48 unit (0.48 mL) subcut TID 12/26/23 Unknown Rx unit/mL (3 mL) subcutaneous #129.6 mL (insulin aspart U-100) guaifenesin 1,200 mg tablet, 1,200 mg PO Q12H #60 tabs 02/07/24 Unknown Rx extended release 12 hr L.acidoph, paracasei,B. lactis 10 cell PO DAILY 02/17/24 Unknown History billion cell capsule cephalexin 250 mg capsule 250 mg PO QHS 02/17/24 Unknown History collagen (bovine) 100 % topical 1 applic topical DAILY 02/17/24 Unknown History powder cranberry concentrate-ascorbic 1 cap PO DAILY 02/17/24 Unknown History acid 140 mg-100 mg capsule (Cranberry Plus Vitamin C) insulin glargine 100 unit/mL (3 20 unit (0.2 mL) subcut QHS dm #18 02/25/24 Unknown Rx mL) subcutaneous pen (Lantus mL Solostar U-100 Insulin) Allergy/AdvReac Type Severity Reaction Status Date / Time adhesive tape Allergy Hives/Rash Verified 05/01/24 12:06 ciprofloxacin (From Cipro) Allergy Photosensitivity Verified 05/01/24 12:06 & dermatitis pioglitazone (From Actos) Allergy Unknown Verified 05/01/24 12:06 codeine AdvReac Upset Verified 05/01/24 12:06 Stomach ibandronate sodium (From AdvReac GI Verified 05/01/24 12:06 Boniva) upset/esophageal burning ibuprofen AdvReac GI upset Verified 05/01/24 12:06 Iodinated Contrast Media AdvReac Vomiting Verified 05/01/24 12:06 (CONTRASTS) iodine AdvReac Vomiting Verified 05/01/24 12:06 lansoprazole AdvReac Diarrhea Verified 05/01/24 12:06 metformin AdvReac Diarrhea Verified 05/01/24 12:06 miconazole (From Neosporin AdvReac Rash/Bliste Verified 05/01/24 12:06 AF) rs nabumetone (From Relafen) AdvReac GI upset Verified 05/01/24 12:06 pantoprazole (From Protonix) AdvReac Diarrhea Verified 05/01/24 12:06 sucralfate (From Carafate) AdvReac feels Verified 05/01/24 12:06 poorly Family History Father Lung cancer Colon cancer Mother Mesothelioma Hypertension Grandmother Heart disease Surgical History nerve block Hx of cataract surgery History of lung biopsy H/O endoscopy Spinal injections S/P rotator cuff repair S/P lobectomy of lung Social History household members: spouse housing: house pets and animals: No Smoking Status: Never smoker second hand exposure: No alcohol intake: current alcohol intake frequency: holidays/special occasions only substance use type: does not use EXAM Physical Exam Const Vital Signs: 05/01/24 12:05 05/01/24 15:32 05/01/24 17:00 Temperature 99 F Temperature Source Temporal Pulse Rate 111 H 105 H 103 H Respiratory Rate 14 18 22 H Blood Pressure 171/87 H 192/81 H 155/95 H Blood Pressure Mean 115 118 115 Pulse Ox 95 97 97 Oxygen Delivery Method Room Air Room Air Room Air 05/01/24 18:22 Temperature 97.0 F L Temperature Source Pulse Rate 100 Respiratory Rate 18 Blood Pressure 194/98 H Blood Pressure Mean 130 Pulse Ox 97 Oxygen Delivery Method MDM MDM MDM Narrative Medical decision making narrative: 84-year-old female presents for evaluation presents for evaluation of multiple complaints including intermittent headache, cough, nausea, vomiting, diarrhea. Differential diagnosis includes but is not limited to viral illness, dehydration, electrolyte abnormality, UTI, intra-abdominal pathology such as diverticulitis, enterocolitis. NS bolus, morphine, Zofran ordered for symptoms. Abdominal pain workup ordered including CT abdomen and pelvis as well as viral panel. CBC without leukocytosis or anemia. CMP without GERALD or transaminitis. Lipase unremarkable. UA positive for ketones which is consistent with dehydr ation. Patient does have leuk esterases however nitrates negative as well as bacteria. Not a clean sample given all the squamous epithelial cells. No UTI. CT abdomen pelvis shows a small hiatal hernia as well as findings consistent with chronic esophagitis and gastritis. Patient does have a history of GERD. Otherwise no acute intra-abdominal abnormality. Patient was updated on all her results. No clear etiology for patient's symptoms at this time however I suspect that it is likely viral in etiology. Patient ambulated without any difficulty. Her vitals are stable and her tachycardia improved. I think her tachycardia was likely secondary to dehydration. Patient is hypertensive however she did not take her blood pressure medication today. She is currently asymptomatic from the hypertension. Patient was educated to go home and take her blood pressure medication. She confirmed understanding the plan. Patient stable to discharge home. Follow-up with PCP. EKG: Interpreted by me/EM physician: EKG shows sinus tachycardia without any acute ischemic changes. Heart rate 109. Diagnostic: Interpreted by me/EM physician: Chest x-ray without pneumonia, large effusion, pneumothorax. Impression: 1. Abdominal pain 2. Viral syndrome 3. Hypertension with established hypertension 4. Dehydration Lab Data Labs: Laboratory Results - last 24 hr 05/01/24 05/01/24 16:15 16:51 WBC 8.9 RBC 4.58 Hgb 14.4 Hct 43.2 MCV 94.3 MCH 31.4 MCHC 33.3 RDW Std Deviation 45.0 H RDW Coeff of Win 13.2 Plt Count 284 MPV 9.9 Immature Gran % (Auto) 0.300 Neut % (Auto) 65.5 Lymph % (Auto) 21.5 [place] % (Auto) 10.9 H Eos % (Auto) 1.2 Baso % (Auto) 0.6 Absolute Neuts (auto) 5.8 Absolute Lymphs (auto) 1.91 Nucleated RBC % 0 Sodium 141 Potassium 3.5 Chloride 108 H Carbon Dioxide 23.0 Anion Gap 10 BUN 11 Creatinine 0.75 Estim Creat Clear Calc 51.06 Est GFR (MDRD) Af Amer 95 Est GFR (MDRD) Non-Af 78 BUN/Creatinine Ratio 14.6 Glucose 95 Calcium 9.4 Total Bilirubin 0.40 AST 17 ALT 23 Alkaline Phosphatase 84 Troponin I High Sens 30 Total Protein 7.5 Albumin 3.6 Globulin 3.9 Albumin/Globulin Ratio 0.9 Lipase 14 Urine Color Yellow Urine Clarity Clear Urine pH 5.0 Ur Specific [place] 1.025 Urine Protein 30 H Urine Glucose (UA) 50 H Urine Ketones 15 H Urine Occult Blood Negative Urine Nitrite Negative Urine Bilirubin Negative Urine Urobilinogen 1 H Ur Leukocyte Esterase 25 H Urine RBC 0 SEEN Urine WBC 0-5 SEEN Ur Squamous Epith Cells 10-25 SEEN Ur Transition Epith Cell 0-5 SEEN Urine Bacteria RARE Urine Mucus 0 SEEN Radiography Diagnostic Testing: Clinical Impression(s) from Imaging Studies Abdomen/Pelvis CT 05/01/24 16:30 IMPRESSION: Small hiatal hernia and findings which may be consistent with chronic esophagitis. There is also mild thickening of the levine of stomach possibly representing gastritis No evidence for small bowel obstruction or other acute abnormality.. Electronically Signed: Dada Martinez MD at 17:58 EDT , Chest X-Ray 05/01/24 17:10 IMPRESSION: No acute cardiopulmonary pathology Electronically Signed: Dada Martinez MD at 17:33 EDT , Discharge Plan Triage Chief Complaint: Abd Pain Other Complaint: Headache ED Provider: Keenan Frances Dx/Rx/DC Orders Clinical Impression: Viral syndrome Prescriptions: No Action lorazepam 1 mg tablet 1 mg PO DAILY fesoterodine [Toviaz] 4 mg tablet extended release 24 hr 8 mg PO DAILY albuterol sulfate 90 mcg/actuation HFA aerosol inhaler 2 puff inhalation Q6H PRN (Reason: shortness of breath or wheezing) Qty: 6.7 3RF pyridoxine (vitamin B6) 250 mg tablet 250 mg PO DAILY guaifenesin 1,200 mg tablet extended release 12hr 1,200 mg PO Q12H Qty: 60 6RF metoprolol succinate 200 MG tablet extended release 24 hr 200 mg PO DAILY Patient Comments: BLOOD PRESSURE/HEART cholecalciferol (vitamin D3) 1,000 UNIT tablet 1,000 unit PO DAILY Patient Comments: SUPPLEMENT esomeprazole magnesium 40 MG capsule,delayed release(DR/EC) 40 mg PO DAILY aspirin 81 MG tablet,chewable 81 mg PO DAILY@0800 Qty: 30 0RF rosuvastatin 10 mg tablet 5 mg PO QHS furosemide [Lasix] 20 mg tablet 20 mg PO DAILY omeprazole 40 mg capsule,delayed release(DR/EC) 40 mg PO DAILY sennosides-docusate sodium [Stool Softener-Stimulant Laxat] 8.6-50 mg Tablet 1 tab PO BID 30 Days Qty: 60 0RF acetaminophen 500 mg Tablet 1,000 mg PO Q6H PRN PRN (Reason: Pain Score 1-5) Qty: 0 0RF gabapentin 300 mg Capsule 300 mg PO BID 30 Days Qty: 60 0RF oxycodone 5 mg Tablet 5 mg PO Q4H PRN PRN (Reason: Pain Score 6-10) 7 Days Qty: 42 0RF L.acidoph, paracasei,B. lactis 10 billion cell capsule PO DAILY cephalexin 250 mg capsule 250 mg PO QHS collagen (bovine) 100 % powder 1 applic topical DAILY Rx Instructions: apply a 1/4 inches inch thick layer, do not pack tightly; cover using a non- adherent dressing Cranberry Plus Vitamin C 140-100 mg capsule 1 cap PO DAILY (DME) pen needle, diabetic [BD Ultra-Fine Micro Pen Needle] 32 gauge x 1/4 needle See Rx Instructions .ROUTE .MEDSUPPLY Qty: 450 1RF Rx Instructions: 4x/day (DME) OneTouch Verio test strips Strip See Rx Instructions .ROUTE .MEDSUPPLY Qty: 100 3RF Rx Instructions: daily duloxetine 60 mg capsule,delayed release(DR/EC) 60 mg PO QHS Qty: 90 2RF duloxetine 30 mg capsule,delayed release(DR/EC) 30 mg PO QAM Qty: 90 2RF insulin aspart U-100 [Novolog FlexPen U-100 Insulin] 100 unit/mL (3 mL) insulin pen 48 unit subcut TID Qty: 129.6 1RF insulin glargine [Lantus Solostar U-100 Insulin] 100 unit/mL (3 mL) insulin pen 20 unit SC QHS Qty: 18 1RF Primary Care Provider: Emily Yun Referrals: Emily Yun MD [Primary Care Provider] - 3-5 Days Print Language: Norwegian Disposition Disposition: Home, Self Care Discharge Date/Time: 05/01/24 18:23
[2024-05-01 17:00] VITALS: BP 155/95; PULSE 103; RESP 22; O2SAT 97
--- NOTE | 2024-05-01 17:10 | RAD_ITS ---
STUDY: X-RAY CHEST REASON FOR EXAM: Female, 84 years old. cough TECHNIQUE: AP portable COMPARISON: February 17, 2024 FINDINGS: There is mild chronic interstitial thickening more pronounced in the right lower lobe. There is no demonstrated pleural abnormality. Normal size heart. Normal mediastinum. Tiny calcified right perihilar nodes. Normal visualized pulmonary arteries. Normal visualized aortic arch and descending thoracic aorta. Normal visualized thoracic spine. Normal visualized ribs, clavicles, and shoulders. There is no demonstrated abnormality of the visualized soft tissue structures of the upper abdomen. No significant change since prior study RAD/Chest 1 View (Portable) IMPRESSION: No acute cardiopulmonary pathology Electronically Signed: Dada Martinez MD at 17:33 EDT ,
[2024-05-01 17:12] LABS: Absolute Lymphocyte Count 1.91 X10^3/uL (0.83-4.51); Absolute Neutrophil Count 5.8 X10^3/uL (2.0-7.7); Basophil# 0.05 X10^3/uL; Basophil% 0.6 % (0-1); Eosinophil# 0.11 X10^3/uL; Eosinophils% 1.2 % (0-5); Hematocrit 43.2 % (37-47); Hemoglobin 14.4 g/dL (12.0-15.0); Lymphocyte # 1.91 X10^3/ul (0.83-4.51); Lymphocyte % 21.5 % (19-41); Mean Corp Hgb Conc 33.3 g/dL (32-36); Mean Corpuscular Hgb 31.4 pg (27.0-32.0); Mean Corpuscular Volume 94.3 fL (81-99); Mean Platelet Vol. 9.9 fl (6.2-12.0); Monocyte# 0.97 X10^3/uL; Monocyte% 10.9 % (0-10); NRBC Flagged by Analyzer 0 % (0-5); Neutrophil # 5.81 X10^3/uL (2.7-7.7); Neutrophil % 65.5 % (47-70); Platelet Count 284 K/mm3 (150-450); RBC Distribution Width CV 13.2 % (11.6-14.6); Red Blood Count 4.58 M/mm3 (4.2-5.4); White Blood Count 8.9 K/mm3 (4.4-11.0)
[2024-05-01 17:15] LABS: Mucous, Urine 0 SEEN /hpf (<or=2+); Red Blood Cells-Urine 0 SEEN /hpf (0-5)
[2024-05-01 17:17] LABS: Color, Urine Yellow (Yellow); Glucose, Dipstick 50 mg/dl (Normal); Ketone-Dipstick 15 mg/dl (Negative); Leukocyte Esterase-Dipstick 25 /ul (Negative); Nitrite-Dipstick Negative (Negative); Occult Blood-Urine Negative /ul (Negative); Protein-Dipstick 30 mg/dl (Negative); Specific Gravity, Urine 1.025 (1.002-1.030); Urine Bilirubin Dipstick Negative (Negative); Urine Clarity Clear (Clear); Urine Urobilinogen 1 mg/dl (Normal)
[2024-05-01 17:21] LABS: ALB/GLOB Ratio 0.9 RATIO (0.9-2.4); AST(SGOT) 17 U/L (15-37); Alanine Aminotransfer ALT/SGPT 23 U/L (13-56); Albumin, Serum 3.6 g/dL (3.2-5.0); Alkaline Phosphatase 84 U/L (45-117); Anion Gap 10 (5-15); BUN 11 mg/dL (7-18); BUN/Creat Ratio 14.6 RATIO (10-20); Calcium,Total 9.4 mg/dL (8.5-10.1); Chloride 108 mmol/L (98-107); Creatinine, Serum 0.75 mg/dL (0.55-1.02); EST Glomerular Filtration Rate 78 mL/min (>60); Est Glom Filt Rate - Afr Amer 95 mL/min (>60); Estimated Creatinine Clearance 51.06 ml/min; Globulin 3.9 g/dL (2.2-4.2); Glucose 95 mg/dL (74-106); Lipase 14 U/L (13-75); Potassium 3.5 mmol/L (3.5-5.1); Protein, Total 7.5 g/dL (6.4-8.2); Sodium Level 141 mmol/L (136-145); Troponin-I HS 30 pg/mL (3.0-54.0)
[2024-05-01 17:30] LABS: White Blood Cells 0-5 SEEN /hpf (0-5)
[2024-05-01 17:31] LABS: Bacteria RARE /hpf (None Seen); Squamous Epithelial Cells - UA 10-25 SEEN /hpf (5-10); Transitional Epithelial - Ur 0-5 SEEN /hpf (0-5)
[2024-05-01] MEDS: Acetaminophen 500 MG Tablet 1000 MG PO (18:21)
[2024-05-01 18:22] VITALS: BP 194/98; PULSE 100; RESP 18; TEMP 36.1; O2SAT 97
== END 2024-05-01 18:23 | disposition home or self-care (01) ==
PROVIDERS: Emergency Provider Surgery; PCP Internal Medicine; Visit Provider Surgery
DX: B34.9 Viral infection, unspecified (principal); E11.9 Type 2 diabetes mellitus without complications; R11.2 Nausea with vomiting, unspecified; R53.1 Weakness; R10.84 Generalized abdominal pain; R19.7 Diarrhea, unspecified; K21.9 Gastro-esophageal reflux disease without esophagitis; I10 Essential (primary) hypertension; K44.9 Diaphragmatic hernia without obstruction or gangrene; E78.5 Hyperlipidemia, unspecified; R51.9 Headache, unspecified; E86.0 Dehydration
CPT/HCPCS: 71045; 74177; 80053; 81001; 83690; 84484; 85025; 87631; 93005; 96361; 96374; 96375; 99285; J7030; Q9967; A4216; J2405

== ENCOUNTER 2024-05-29 07:19 | Day surgery (SDC) | payer MEDICARE, OTHER, SELFPAY ==
[2024-05-29] VITALS (9 sets, daily range): BP systolic 132–152; BP diastolic 55–64; PULSE 74–86; RESP 15–16; TEMP 36.1–37.1; O2SAT 92–97; BMI 30.2
--- NOTE | 2024-05-29 08:26 | PRE.ANES_ITS ---
ASA Classification* ASA Classification ASA Classification: 2 Assessment & Plan Anesthesia* Anesthesia Assessment Anesthesia Assessment: Discussed sedation and/or anesthesia options, risks, benefits, and alternatives with patient/parents/legal guardian/POA. Questions invited. The patient/parents/legal guardian/POA seems to understand and agrees to proceed with anesthesia plan. Reviewed the physical assessment, medical history, allergy history and patient home medications list prior to surgery/procedure/anesthetic and documented any changes. Performed airway and anesthesia risk assessments. Anesthesia Type Anesthesia Type: MAC (see written pre anesthesia record for full assessment) Anesthesia Focused Assessment* Temperature: 97 F Pulse Rate: 86 Blood Pressure: 141/55 Respiratory Rate: 16 Pulse Ox: 97 Airway Assessment Mouth opens: >3 cm Mallampati Score: II Focused Labs Anesthesia Preop lab: CBC WBC 8.9 K/mm3 (4.4-11.0) 05/01/24 16:15 RBC 4.58 M/mm3 (4.2-5.4) 05/01/24 16:15 Hgb 14.4 g/dL (12.0-15.0) 05/01/24 16:15 Hct 43.2 % (37-47) 05/01/24 16:15 Plt Count 284 K/mm3 (150-450) 05/01/24 16:15 CHEMISTRY Potassium 3.5 mmol/L (3.5-5.1) 05/01/24 16:15 Sodium 141 mmol/L (136-145) 05/01/24 16:15 Magnesium 1.9 mg/dL (1.6-2.6) 06/13/23 06:27 Phosphorus 2.7 mg/dL (2.5-4.9) 06/13/23 06:27 BUN 11 mg/dL (7-18) 05/01/24 16:15 Creatinine 0.75 mg/dL (0.55-1.02) 05/01/24 16:15 Glucose 95 mg/dL (74-106) 05/01/24 16:15 POC Glucose 254 mg/dL (74-106) H 06/26/23 11:58 TSH 3.46 uIU/mL (0.358-3.74) 05/27/20 14:29 COAG PT 14.0 SECONDS (11.7-14.9) 06/10/23 18:00 Pre-Assessment Diagnosis/Proposed Procedure Planned Operative Procedure(s): CYSTO BULKAMID Anesthesia History 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 When Was Last Pacemaker Check QUESTION #4 FULL TEXT: You/Your Family Experience fever (hyperthermia) with Anesthesia Last Oral Intake Last Oral intake: Last Oral Intake NPO since 05:00 05/29/24 07:49 Meds taken in AM with sips of Yes 05/29/24 07:49 water? Meds patient instructed to see mar 05/29/24 07:49 take am of surgery PONV PONV - facility maintenance manager: PONV - facility maintenance manager Female Yes 05/21/24 13:28 HX of Motion Sickness No 05/21/24 13:28 HX of N/V After Surgery No 05/21/24 13:28 Non-Smoker Yes 05/21/24 13:28 Duration of Surgery greater No 05/21/24 13:28 than 60 minutes Number of Risk Factors 2 05/21/24 13:28 PONV Score Moderate Risk 05/21/24 13:28 Height & Weight Height & Weight: Anesthesia: Height & Weight Height 5 ft 2 in 05/29/24 07:49 Weight: 74.843 kg 05/29/24 07:49 Body Mass Index (BMI) 30.2 05/29/24 07:49 Respiratory Assessment Respiratory Assessment - facility maintenance manager: Respiratory Tract Infection Hx - facility maintenance manager Hx Respiratory Tract Infection No 05/21/24 13:28 STOP Sleep Apnea STOP Sleep Apnea - facility maintenance manager: STOP Sleep Apnea - facility maintenance manager Hx Hypertension Yes: CONTROLLED WITH MED 05/21/24 13:28 Hx Sleep Apnea No 05/21/24 13:28 CPAP BIPAP Do you snore loudly (louder Yes 05/21/24 13:28 than talking or can be heard Do you often feel tired/ No 05/21/24 13:28 fatigued/ sleepy during daytime? Has anyone observed you stop No 05/21/24 13:28 breathing during sleep? STOP Results Positive 05/21/24 13:28 QUESTION #5 FULL TEXT : Do you snore loudly (louder than talking or can be heard through closed doors)? Tobacco Use History Tobacco Use History - facility maintenance manager: Tobacco Use History - facility maintenance manager Tobacco Use Smoking Status Never smoker 05/21/24 13:28 Hx Tobacco Use No 05/21/24 13:28 Years Smoking Packs Smoked per Day Smoking Cessation Date was within the last 15 years Hx Smoking Cessation Date Hx Smoking Cessation No 05/21/24 13:28 Counseling Hematologic Medial History Hematologic Hx - facility maintenance manager: Hematologic Medical Hx - vat packer Hx of Blood Transfusion No 05/21/24 13:28 Hx of Transfusion in last 3 No 05/21/24 13:28 Months Date of Last Transfusion (if within last 3 months) Ever experience any problems No 05/21/24 13:28 with transfusion(s)? Specify any problems Hx of Preganancy in last 3 No 05/21/24 13:28 Months Nurse Filling Out Transfusion DSCHRIBER 05/21/24 13:28 & Questions: Date: 05/21/24 05/21/24 13:28 Time: 13:30 05/21/24 13:28 Patient unable to answer at this time (ie. confused, unrespo /Reproduction History /Reproductive History - facility maintenance manager: /Reproductive Hx- facility maintenance manager Hx Now No 05/21/24 13:28 Gestational Age (in weeks): EDC: Hx Hx Para Hx Section SAB No 05/21/24 13:28 Active Medications Active Medications: Current Medications Generic Name Dose Route Start Last Admin Trade Name Freq PRN Reason Stop Dose Admin Cefazolin Sodium 2 gm/ N/A 20 mls @ 400 mls/hr 05/29/24 08:50 IV 05/29/24 08:52 PREOP ONE [facility] Medical History (Updated 05/21/24 @ 13:42 by Kaela Nicole) Wears glasses MRSA infection History of Clostridium difficile infection Cancer Thyroid disease Achilles tendinitis Insulin dependent diabetes mellitus Walker as ambulation aid Arthritis Bladder disease Easy bruising Injury of back Back pain Unsteady gait Dietary restriction History of hiatal hernia Gastric reflux Non-smoker Chronic cough Hoarseness Shortness of breath on exertion Leg cramps History of edema History of echocardiogram History of stress test Left lumbar radiculopathy Fatigue Overweight (BMI 25.0-29.9) Migraine without aura, not intractable, without status migrainosus 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 disease History of ischemic stroke Macular degeneration 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 Acute gastritis Enlargement of lymph nodes Migraine Restless legs Depression Anxiety GERD (gastroesophageal reflux disease) Accelerated essential hypertension Essential (primary) hypertension Acute chest pain Home Medications ?Medication ?Instructions ?Recorded ?Last Taken ?Type cholecalciferol (vitamin D3) 25 1,000 unit PO DAILY supplement 03/13/17 06/13/23 History mcg (1,000 unit) tablet metoprolol succinate 200 mg 200 mg PO DAILY heart 03/13/17 05/29/24 05:30 History tablet,extended release 24 hr lorazepam 1 mg tablet 1 mg PO DAILY PRN anxiety 08/28/18 05/29/24 05:30 History esomeprazole magnesium 40 mg 40 mg PO DAILY gerd 01/01/20 06/13/23 History capsule,delayed release aspirin 81 mg chewable tablet 81 mg PO DAILY@0800 heart ##30 01/03/20 05/28/24 Rx fesoterodine 4 mg tablet,extended 8 mg PO DAILY bladder 10/10/21 Unknown History release 24 hr (Toviaz) pen needle, diabetic 32 gauge x #450 ea 12/14/21 Unknown Rx 1/4 (BD Ultra-Fine Micro Pen Needle) blood sugar diagnostic (OneTouch #100 ea 12/25/22 Unknown Rx Verio test strips) pyridoxine (vitamin B6) 250 mg 250 mg PO DAILY vitamin 02/06/23 Unknown History tablet albuterol sulfate 90 mcg/actuation 2 puff inhalation Q6H PRN 03/07/23 Unknown Rx aerosol inhaler shortness of breath or wheezing #6.7 grams furosemide 20 mg tablet (Lasix) 20 mg PO DAILY PRN bp 06/11/23 Unknown History acetaminophen 500 mg tablet 1,000 mg (2 x 500 mg) PO Q6H PRN 06/20/23 Unknown Rx PRN Pain Score 1-5 #0 tabs gabapentin 300 mg capsule 300 mg PO BID 30 days #60 caps 06/20/23 Unknown Rx L.acidoph, paracasei,B. lactis 10 10 cell PO QHS 02/17/24 Unknown History billion cell capsule cephalexin 250 mg capsule 250 mg PO QHS 02/17/24 Unknown History cranberry concentrate-ascorbic 1 cap PO DAILY 02/17/24 Unknown History acid 140 mg-100 mg capsule (Cranberry Plus Vitamin C) guaifenesin 1,200 mg tablet, 1,200 mg PO Q12H PRN cough 05/21/24 Unknown History extended release 12 hr insulin aspart U-100 100 unit/mL 25 unit subcut LUNCH 05/21/24 Unknown History (3 mL) subcutaneous pen (Novolog FlexPen U-100 Insulin aspart) insulin aspart U-100 100 unit/mL 38 unit subcut QPM 05/21/24 05/28/24 History (3 mL) subcutaneous pen (Novolog FlexPen U-100 Insulin aspart) insulin aspart U-100 100 unit/mL 55 unit subcut DAILY 05/21/24 Unknown History (3 mL) subcutaneous pen (Novolog FlexPen U-100 Insulin aspart) insulin glargine 100 unit/mL (3 22 unit subcut QHS dm 05/21/24 05/28/24 History mL) subcutaneous pen (Lantus Solostar U-100 Insulin) vibegron 75 mg tablet (Gemtesa) 75 mg PO DAILY 05/21/24 Unknown History duloxetine 60 mg capsule,delayed 60 mg PO QHS mood #90 caps 05/26/24 Unknown Rx release Allergy/AdvReac Type Severity Reaction Status Date / Time adhesive tape Allergy Hives/Rash Verified 05/29/24 07:43 ciprofloxacin (From Cipro) Allergy Photosensitivity Verified 05/29/24 07:43 & dermatitis pioglitazone (From Actos) Allergy Unknown Verified 05/29/24 07:43 codeine AdvReac Upset Verified 05/29/24 07:43 Stomach ibandronate sodium (From AdvReac GI Verified 05/29/24 07:43 Boniva) upset/esophageal burning ibuprofen AdvReac GI upset Verified 05/29/24 07:43 Iodinated Contrast Media AdvReac Vomiting Verified 05/29/24 07:43 (CONTRASTS) iodine AdvReac Vomiting Verified 05/29/24 07:43 lansoprazole AdvReac Diarrhea Verified 05/29/24 07:43 metformin AdvReac Diarrhea Verified 05/29/24 07:43 miconazole (From Neosporin AdvReac Rash/Bliste Verified 05/29/24 07:43 AF) rs nabumetone (From Relafen) AdvReac GI upset Verified 05/29/24 07:43 pantoprazole (From Protonix) AdvReac Diarrhea Verified 05/29/24 07:43 sucralfate (From Carafate) AdvReac feels Verified 05/29/24 07:43 poorly Family History Father Lung cancer Colon cancer Mother Mesothelioma Hypertension Grandmother Heart disease Surgical History (Updated 05/21/24 @ 13:42 by Kaela Nicole) Hx of colonoscopy Hx of right cataract extraction Hx of left cataract extraction History of lobectomy of lung History of lung biopsy H/O endoscopy Spinal injections S/P rotator cuff repair Social History household members: spouse housing: house pets and animals: No Smoking Status: Never smoker second hand exposure: No alcohol intake: current alcohol intake frequency: holidays/special occasions only substance use type: does not use Review of Systems (Anesthesia) ROS Narrative System reviewed and no additional complaints, except as documented.
[2024-05-29 08:27] LABS: Bedside Glucose 194 mg/dL (74-106)
[2024-05-29] MEDS: Cefazolin 2 GM in Syringe IV (09:10)
--- NOTE | 2024-05-29 09:34 | PCM.POST.ANE ---
Anesthesia: Postop Eval I Current Vital Signs Temperature: 97.8 F Pulse Rate: 78 Blood Pressure: 133/59 Respiratory Rate: 16 Pulse Ox: 93 Oxygen Delivery Method: Room Air Assessment Airway patent: Yes Spontaneous unlabored respirations: Yes Mental status: Awake and Calm nausea: No Vomiting: No Anesthesia Complication: No Fluid Hydration Crystalloid volume administer (ml): 10 Total IV fluid infused: 10 Progress Note Anesthesia document: Postop Eval 1 completed: Yes
--- NOTE | 2024-05-29 09:40 | DCINST_ITS ---
Discharge Instructions Diet Discharge Diet: No restrictions Activity Discharge Activity: Return to Normal Activity Dressing / Incision Call your doctor if you observe: Fever of 101 or Higher, Inability to urinate and Inability to have a bowel movement Follow Up Care Please Follow Up With: Violette Don MD When: The office will call her to make follow-up arrangements. Test Results: Test results from this visit will be discussed in further detail at your follow- up appointment, if applicable. Discharge Plan Admission Attending Provider: Violette Don Primary Care Provider: Emily Yun Instructions Print Language: [place] Discharge Orders/Prescriptions Prescriptions: Continued lorazepam 1 mg tablet 1 mg PO DAILY PRN (Reason: anxiety) fesoterodine [Toviaz] 4 mg tablet extended release 24 hr 8 mg PO DAILY albuterol sulfate 90 mcg/actuation HFA aerosol inhaler 2 puff inhalation Q6H PRN (Reason: shortness of breath or wheezing) Qty: 6.7 3RF pyridoxine (vitamin B6) 250 mg tablet 250 mg PO DAILY duloxetine 60 mg capsule,delayed release(DR/EC) 60 mg PO QHS Qty: 90 2RF metoprolol succinate 200 MG tablet extended release 24 hr 200 mg PO DAILY Patient Comments: BLOOD PRESSURE/HEART cholecalciferol (vitamin D3) 1,000 UNIT tablet 1,000 unit PO DAILY Patient Comments: SUPPLEMENT esomeprazole magnesium 40 MG capsule,delayed release(DR/EC) 40 mg PO DAILY aspirin 81 MG tablet,chewable 81 mg PO DAILY@0800 Qty: 30 0RF furosemide [Lasix] 20 mg tablet 20 mg PO DAILY PRN (Reason: bp) acetaminophen 500 mg Tablet 1,000 mg PO Q6H PRN PRN (Reason: Pain Score 1-5) Qty: 0 0RF gabapentin 300 mg Capsule 300 mg PO BID 30 Days Qty: 60 0RF L.acidoph, paracasei,B. lactis 10 billion cell capsule 10 cell PO QHS cephalexin 250 mg capsule 250 mg PO QHS Cranberry Plus Vitamin C 140-100 mg capsule 1 cap PO DAILY Gemtesa 75 mg tablet 75 mg PO DAILY insulin aspart U-100 [Novolog FlexPen U-100 Insulin] 100 unit/mL (3 mL) insulin pen 25 unit subcut LUNCH insulin aspart U-100 [Novolog FlexPen U-100 Insulin] 100 unit/mL (3 mL) insulin pen 38 unit subcut QPM insulin aspart U-100 [Novolog FlexPen U-100 Insulin] 100 unit/mL (3 mL) insulin pen 55 unit subcut DAILY insulin glargine [Lantus Solostar U-100 Insulin] 100 unit/mL (3 mL) insulin pen 22 unit SC QHS guaifenesin 1,200 mg tablet extended release 12hr 1,200 mg PO Q12H PRN (Reason: cough) (DME) pen needle, diabetic [BD Ultra-Fine Micro Pen Needle] 32 gauge x 1/4 needle See Rx Instructions .ROUTE .MEDSUPPLY Qty: 450 1RF Rx Instructions: 4x/day (DME) OneTouch Verio test strips Strip See Rx Instructions .ROUTE .MEDSUPPLY Qty: 100 3RF Rx Instructions: daily Referrals / Follow Up: Emily Yun MD [Primary Care Provider] - Disposition Disposition (needs filled in before D/C Order can be placed): Home, Self Care
--- NOTE | 2024-05-29 09:41 | OP.PCM_ITS ---
Report of Operation Date of Procedure: 05/29/24 Pre-Operative Diagnosis: Intrinsic sphincter deficiency, stress urinary inconti nence Post-Operative Diagnosis: Same Surgery/Procedure Performed:: Cystoscopy with Bulkamid injection Description of Surgical Findings:: Of note, on her way into the hospital this morning the patient scraped her left leg on her car door to the point it was bleeding into her sock. The injury was cleansed and wrapped per nursing staff. I ordered a tetanus immunization for her. 1 was not documented in her records. Surgeon: Violette Don Type of Anesthesia: MAC Special Medications: Tetanus immunization Description of Procedure: The patient is an 84-year old female with intrinsic sphincter deficiency and stress incontinence on urodynamics who presents for Bulkamid injection. Informed consent was obtained. The patient was taken to the operating room and placed on the operating room table. Anesthesia monitored the head, neck, airway, IV access and vital signs throughout the case. Once anesthesia was appropriately ministered, she was placed into dorsolithotomy position and was prepped and draped in usual sterile fashion. Her bladder was emptied with a red rather catheter. Using the Bulkamid sheath and lens, the urethra was intubated. The sheath was placed at the bladder neck and the needle was extended 2 cm into the lumen. This was all pulled back 2 cm into the urethra and the needle with the bevel medially was inserted 1 cm into the tissue at the 7 o'clock position. One half of the syringe was injected in this location. At this time the sheath was shifted to the 5 o'clock position where the other half was injected. This process was then repeated at the 1:00 and 11:00 positions. There appeared to be good coaptation of the tissue at this time. The scope was then removed and the case was terminated. She was awakened and taken to the recovery room in good co ndition. There were no complications during this procedure. Admit VTE Documentation VTE Present on Admission: Yes VTE Mechan Device Prophylaxis: SCD's VTE Pharm Prophylaxis ordered?: No Reason prophylaxis not ordered:: Treatment Not Indicated
--- NOTE | 2024-05-29 10:11 | POSTOPAN2_ITS ---
Anesthesia Postop Eval I Sum Postop Eval Completion status Anesthesia document: Postop Eval 1 completed: Yes Anesthesia Postop Eval I Summary Anesthesia Postop Eval I Summary: Anesthesia Postop Eval I: Assessment Summary Airway patent Yes 05/29/24 09:36 REHABILITATION DIRECTOR.ENZOOBRolando Spontaneous unlabored Yes 05/29/24 09:36 REHABILITATION DIRECTOR.ANNA respirations Mental status Awake,Calm 05/29/24 09:36 REHABILITATION DIRECTOR.ANNA nausea No 05/29/24 09:36 REHABILITATION DIRECTOR.ANNA Vomiting No 05/29/24 09:36 REHABILITATION DIRECTORGABRIELLA Anesthesia Postop Eval I: Fluid Summary Crystalloid volume administer 10 05/29/24 09:36 REHABILITATION DIRECTOR.ANNA (ml) Colloids volume administered ( ml) Blood Product volume administered (ml) Total IV fluid infused 10 05/29/24 09:36 REHABILITATION DIRECTORGABRIELLA Anesthesia Postop Eval I: Summary Notes Anesthesia Complication No 05/29/24 09:36 JESSE Anesthesia Complication Comment: Post-operative progress note Anesthesia: Postop Eval II Evaluation Mental status: Awake Pain Level: 0 nausea: No Vomiting: No
--- NOTE | 2024-05-29 10:11 | PCM.POSTANE2 ---
Anesthesia Postop Eval I Sum Postop Eval Completion status Anesthesia document: Postop Eval 1 completed: Yes Anesthesia Postop Eval I Summary Anesthesia Postop Eval I Summary: Anesthesia Postop Eval I: Assessment Summary Airway patent Yes 05/29/24 09:36 MATHEMATICAL ENGINEERING TECHNICIAN.ENZOOBRolando Spontaneous unlabored Yes 05/29/24 09:36 MATHEMATICAL ENGINEERING TECHNICIAN.ANNA respirations Mental status Awake,Calm 05/29/24 09:36 MATHEMATICAL ENGINEERING TECHNICIAN.ANNA nausea No 05/29/24 09:36 MATHEMATICAL ENGINEERING TECHNICIAN.ANNA Vomiting No 05/29/24 09:36 MATHEMATICAL ENGINEERING TECHNICIANGABRIELLA Anesthesia Postop Eval I: Fluid Summary Crystalloid volume administer 10 05/29/24 09:36 MATHEMATICAL ENGINEERING TECHNICIAN.ANNA (ml) Colloids volume administered ( ml) Blood Product volume administered (ml) Total IV fluid infused 10 05/29/24 09:36 MATHEMATICAL ENGINEERING TECHNICIANGABRIELLA Anesthesia Postop Eval I: Summary Notes Anesthesia Complication No 05/29/24 09:36 JESSE Anesthesia Complication Comment: Post-operative progress note Anesthesia: Postop Eval II Evaluation Mental status: Awake Pain Level: 0 nausea: No Vomiting: No
--- NOTE | 2024-05-29 10:50 | SUR.PHASEII ---
pt inc of lg amt of urine did not feel urge to go, post inc void residual 22cc, called Dr Don and informed of PVR and inc amt. Dr Don okay to discharge pt home. Pt instructed to call with any concerns or difficulty urinating.
== END 2024-05-29 11:34 | disposition home or self-care (01) ==
LOC: SDC 07:23 → AC 07:25
PROVIDERS: PCP Internal Medicine; Referring Provider Internal Medicine; Visit Provider Urology
PROC: 3E0K8GC Introduction of Other Therapeutic Substance into Genitourinary Tract, Via Natural or Artificial Opening Endoscopic (ICD-10-PCS; CPT 52287; principal; 2024-05-29 08:40)
DX: N36.42 Intrinsic sphincter deficiency (ISD) (principal); E11.42 Type 2 diabetes mellitus with diabetic polyneuropathy; Z79.4 Long term (current) use of insulin; N39.3 Stress incontinence (female) (male); N39.0 Urinary tract infection, site not specified; S80.812A Abrasion, left lower leg, initial encounter; W22.8XXA Striking against or struck by other objects, initial encounter; G31.84 Mild cognitive impairment of uncertain or unknown etiology; I10 Essential (primary) hypertension; E66.3 Overweight; F41.9 Anxiety disorder, unspecified; F32.9 Major depressive disorder, single episode, unspecified; K21.9 Gastro-esophageal reflux disease without esophagitis; K22.70 Barrett's esophagus without dysplasia; M41.9 Scoliosis, unspecified; M54.16 Radiculopathy, lumbar region; M51.26 Other intervertebral disc displacement, lumbar region; G25.81 Restless legs syndrome; Z68.30 Body mass index [BMI] 30.0-30.9, adult; Z88.1 Allergy status to other antibiotic agents; Z90.2 Acquired absence of lung [part of]; Z86.79 Personal history of other diseases of the circulatory system; Z86.14 Personal history of Methicillin resistant Staphylococcus aureus infection; Z86.73 Personal history of transient ischemic attack (TIA), and cerebral infarction without residual deficits; Z85.118 Personal history of other malignant neoplasm of bronchus and lung; Z79.82 Long term (current) use of aspirin; Z79.84 Long term (current) use of oral hypoglycemic drugs; Z79.899 Other long term (current) drug therapy
CPT/HCPCS: 51715; 82962; J1670; A4216; J2405

== ENCOUNTER → 2024-06-23 | Outpatient (CLI) | payer MEDICARE, OTHER, SELFPAY ==
--- NOTE | 2024-06-23 12:52 | VDLE_ITS ---
Reason For Study: BLE Pain RIGHT LEFT GSV is normal. GSV is normal. CFV is compressible, spontaneous, phasic, CFV is compressible, spontaneous, phasic, competent and demonstrates normal competent, and demonstrates normal augmentation. augmentation. FV is compressible, spontaneous, phasic, FV is compressible, spontaneous, phasic, competent and demonstrates normal competent and demonstrates normal augmentation. augmentation. POP V is compressible, spontaneous, phasic, POP V is compressible, spontaneous, phasic, competent and demonstrates normal competent and demonstrates normal augmentation. augmentation. T/P Trunk is compressible. T/P Trunk is compressible. PTV is compressible. PTV is compressible. RT PerV is compressible. LT PerV is compressible. Procedure This is a venous duplex using B-mode, color flow and spectral Doppler. Exam performed in department. A preliminary report was called and/or faxed to Dr. Do. VL/Venous Duplex US - Rick Extrem Interpretation Summary Deep veins of the lower extremities are bilaterally patent and compressible seg mentally. There is no evidence of deep vein thrombosis on either side. Valvular competence appears in tact within the proximal deep venous systems bilaterally. The great saphenous veins appear bila terally patent and compressible segmentally. Ordering Physician: Dada Do Referring Physician: Emily Yun Performed By: Rupali Silva, MARIA LUISA, RVT
== END | disposition home or self-care (01) ==
LOC: CVS 12:47
PROVIDERS: PCP Internal Medicine; Referring Provider Podiatrist; Visit Provider Podiatrist
DX: M79.661 Pain in right lower leg (principal); M79.662 Pain in left lower leg
CPT/HCPCS: 93970

== ENCOUNTER 2024-07-10 16:50 | Inpatient (IN) | payer MEDICARE, OTHER, SELFPAY ==
[2024-07-10] VITALS (14 sets, daily range): BP systolic 156–177; BP diastolic 59–105; PULSE 73–87; RESP 12–18; TEMP 36.6; O2SAT 94–100
[2024-07-10] MEDS: 0.9% Normal Saline (500mL Bag) 500 ML 1000 ML IV (17:32)
[2024-07-10] MEDS: Ondansetron 4 MG/2 ML Vial IV (17:32)
[2024-07-10 17:33] LABS: Bedside Glucose 115 mg/dL (74-106)
[2024-07-10 17:42] LABS: Absolute Lymphocyte Count 1.64 X10^3/uL (0.83-4.51); Absolute Neutrophil Count 12.4 X10^3/uL (2.0-7.7); Basophil# 0.08 X10^3/uL; Basophil% 0.5 % (0-1); Eosinophil# 0.17 X10^3/uL; Eosinophils% 1.1 % (0-5); Hemoglobin 14.1 g/dL (12.0-15.0); Lymphocyte # 1.64 X10^3/ul (0.83-4.51); Lymphocyte % 10.5 % (19-41); Mean Corp Hgb Conc 34.4 g/dL (32-36); Mean Corpuscular Volume 93.2 fL (81-99); Mean Platelet Vol. 9.6 fl (6.2-12.0); Monocyte# 1.26 X10^3/uL; Monocyte% 8.1 % (0-10); NRBC Flagged by Analyzer 0 % (0-5); Neutrophil # 12.38 X10^3/uL (2.7-7.7); Neutrophil % 79.4 % (47-70); Platelet Count 311 K/mm3 (150-450); RBC Distribution Width CV 13.3 % (11.6-14.6); RBC Distribution Width SD 45.1 fl (35.1-43.9); White Blood Count 15.6 K/mm3 (4.4-11.0)
[2024-07-10 17:45] LABS: Bacteria 0 SEEN /hpf (None Seen); Mucous, Urine 0 SEEN /hpf (<or=2+)
[2024-07-10 17:48] LABS: Color, Urine Yellow (Yellow); Glucose, Dipstick Normal (Normal); Ketone-Dipstick Negative (Negative); Leukocyte Esterase-Dipstick 100 /ul (Negative); Nitrite-Dipstick Negative (Negative); Occult Blood-Urine 10 /ul (Negative); Protein-Dipstick 30 mg/dl (Negative); Specific Gravity, Urine 1.025 (1.002-1.030); Urine Bilirubin Dipstick Negative (Negative); Urine Clarity Sl. Cloudy (Clear); Urine Urobilinogen Normal (Normal)
[2024-07-10 18:01] LABS: AST(SGOT) 16 U/L (15-37); Alanine Aminotransfer ALT/SGPT 21 U/L (13-56); Albumin, Serum 3.8 g/dL (3.2-5.0); Alkaline Phosphatase 101 U/L (45-117); Anion Gap 7 (5-15); BUN 17 mg/dL (7-18); BUN/Creat Ratio 17.6 RATIO (10-20); Chloride 104 mmol/L (98-107); Creatinine, Serum 0.96 mg/dL (0.55-1.02); EST Glomerular Filtration Rate 59 mL/min (>60); Est Glom Filt Rate - Afr Amer 71 mL/min (>60); Estimated Creatinine Clearance 42.72 ml/min; Globulin 3.9 g/dL (2.2-4.2); Glucose 136 mg/dL (74-106); Lipase 14 U/L (13-75); Potassium 4.1 mmol/L (3.5-5.1); Protein, Total 7.7 g/dL (6.4-8.2); Sodium Level 140 mmol/L (136-145); Troponin-I HS (w/2H Reflex) 6 pg/mL (3.0-54.0)
[2024-07-10 18:12] LABS: Lactic Acid 2.5 mmol/L (0.4-1.9)
[2024-07-10 18:18] LABS: BNP,B-Type NATRIURETIC PEPTIDE 36.3 pg/mL (0-100)
[2024-07-10 18:24] LABS: Red Blood Cells-Urine 0-5 SEEN /hpf (0-5); Squamous Epithelial Cells - UA 0-5 SEEN /hpf (5-10); White Blood Cells 5-10 SEEN /hpf (0-5); Yeast-Urine 1+ /hpf (None Seen)
[2024-07-10] MEDS: Ketorolac 15 MG/ML Vial IV (19:23)
[2024-07-10] MEDS: Metoclopramide 10 MG/2 ML Vial 5 MG IV (19:23)
[2024-07-10 19:39] LABS: Reflex Troponin-HS? (from REC) Y
[2024-07-10 20:19] LABS: Troponin-I HS 6 pg/mL (3.0-54.0)
[2024-07-10 21:30] LABS: Lactic Acid 2.4 mmol/L (0.4-1.9)
[2024-07-10 21:39] LABS: Reflex Lactate? Y
[2024-07-10] MEDS: Piperacil/Tazobactam 3.375 GM in 0.9% Normal Saline (50mL MB+) 50 ML IV (22:23)
[2024-07-10] MEDS: Vancomycin IV 1,000 MG/200 ML BAG 200 MG IV (23:29)
[2024-07-11] VITALS (12 sets, daily range): BP systolic 135–155; BP diastolic 55–75; PULSE 78–85; RESP 15–18; TEMP 36.3–37; O2SAT 92–96; BMI 29.6
[2024-07-11 00:23] LABS: Reflex Lactate? Y
[2024-07-11] MEDS: Acetaminophen 325 MG Tablet 650 MG PO ×2 (01:09→22:23)
[2024-07-11] MEDS: Gabapentin 300 MG Capsule PO ×3 (01:16→22:23)
[2024-07-11] MEDS: 0.9% Saline Lock 10 ML Syringe IV ×3 (01:17→22:25)
[2024-07-11 01:33] LABS: Lactic Acid 2.5 mmol/L (0.4-1.9)
[2024-07-11] MEDS: Ondansetron 4 MG/2 ML Vial IV (01:44)
[2024-07-11] MEDS: Insulin Glargine-YFGN 100 UNIT/ML Pen 20 UNIT SC ×2 (01:45→22:24)
[2024-07-11] MEDS: Piperacil/Tazobactam 3.375 GM in 0.9% Normal Saline (50mL MB+) 50 ML IV ×3 (05:43→22:25)
[2024-07-11 07:56] LABS: Bedside Glucose 233 mg/dL (74-106)
[2024-07-11 08:25] LABS: Hematocrit 34.5 % (37-47); Hemoglobin 11.7 g/dL (12.0-15.0); Mean Corp Hgb Conc 33.9 g/dL (32-36); Mean Corpuscular Volume 94.3 fL (81-99); Mean Platelet Vol. 9.8 fl (6.2-12.0); Platelet Count 260 K/mm3 (150-450); RBC Distribution Width CV 13.3 % (11.6-14.6); RBC Distribution Width SD 46.2 fl (35.1-43.9); Red Blood Count 3.66 M/mm3 (4.2-5.4); White Blood Count 11.9 K/mm3 (4.4-11.0)
[2024-07-11] MEDS: Tolterodine Tartrate 4 MG CAP.SA PO (08:59)
[2024-07-11] MEDS: Lactobacillis Acidophilus 1 CAP PO (08:59)
[2024-07-11] MEDS: Vibegron 75 MG TABLET PO (08:59)
[2024-07-11] MEDS: Pantoprazole Sodium 40 MG Tablet PO (08:59)
[2024-07-11] MEDS: Metoprolol(XL)Succ 100 MG Tablet PO (08:59)
[2024-07-11] MEDS: Pyridoxine HCl 100 MG Tablet 250 MG PO (09:00)
[2024-07-11] MEDS: Insulin Lispro 100 UNIT/ML INSULN.PEN 10 UNIT SC ×3 (09:03→16:44)
[2024-07-11] MEDS: Insulin Lispro 100 UNIT/ML INSULN.PEN SC ×4 (09:04→22:24)
[2024-07-11 09:15] LABS: Lactic Acid 1.6 mmol/L (0.4-1.9)
[2024-07-11 10:16] LABS: Anion Gap 8 (5-15); BUN 17 mg/dL (7-18); BUN/Creat Ratio 17.2 RATIO (10-20); Chloride 105 mmol/L (98-107); Creatinine, Serum 0.99 mg/dL (0.55-1.02); EST Glomerular Filtration Rate 57 mL/min (>60); Est Glom Filt Rate - Afr Amer 69 mL/min (>60); Estimated Creatinine Clearance 41.12 ml/min; Glucose 228 mg/dL (74-106); Potassium 4.2 mmol/L (3.5-5.1); Sodium Level 136 mmol/L (136-145)
[2024-07-11 11:43] LABS: Bedside Glucose 351 mg/dL (74-106)
[2024-07-11 17:06] LABS: Bedside Glucose 220 mg/dL (74-106)
[2024-07-11] MEDS: guaiFENesin 10 ML UDC (200MG/10ML) PO (22:23)
[2024-07-11] MEDS: DULoxetine Hcl 60 MG Capsule PO (22:23)
[2024-07-11] MEDS: Atorvastatin Calcium 20 MG Tablet PO (22:23)
[2024-07-11] MEDS: LORazepam 1 MG Tablet PO (22:40)
[2024-07-11 23:04] LABS: Bedside Glucose 262 mg/dL (74-106)
[2024-07-12] VITALS (7 sets, daily range): BP systolic 140–188; BP diastolic 57–77; PULSE 83–91; RESP 18; TEMP 36.4–36.8; O2SAT 95–97
[2024-07-12] MEDS: hydrALAZINE 20 MG/ML Vial 10 MG IV (04:02)
[2024-07-12] MEDS: 0.9% Saline Lock 10 ML Syringe IV (04:03)
[2024-07-12] MEDS: Piperacil/Tazobactam 3.375 GM in 0.9% Normal Saline (50mL MB+) 50 ML IV (05:43)
[2024-07-12 07:15] LABS: Absolute Lymphocyte Count 1.64 X10^3/uL (0.83-4.51); Absolute Neutrophil Count 6.1 X10^3/uL (2.0-7.7); Basophil# 0.05 X10^3/uL; Basophil% 0.6 % (0-1); Eosinophil# 0.26 X10^3/uL; Eosinophils% 2.9 % (0-5); Hematocrit 35.3 % (37-47); Hemoglobin 12.2 g/dL (12.0-15.0); Lymphocyte # 1.64 X10^3/ul (0.83-4.51); Lymphocyte % 18.2 % (19-41); Mean Corp Hgb Conc 34.6 g/dL (32-36); Mean Corpuscular Hgb 32.4 pg (27.0-32.0); Mean Corpuscular Volume 93.6 fL (81-99); Mean Platelet Vol. 9.7 fl (6.2-12.0); Monocyte# 0.88 X10^3/uL; Monocyte% 9.7 % (0-10); NRBC Flagged by Analyzer 0 % (0-5); Neutrophil # 6.14 X10^3/uL (2.7-7.7); Neutrophil % 67.9 % (47-70); Platelet Count 232 K/mm3 (150-450); RBC Distribution Width CV 13.2 % (11.6-14.6); Red Blood Count 3.77 M/mm3 (4.2-5.4)
[2024-07-12 07:18] LABS: Bedside Glucose 293 mg/dL (74-106)
[2024-07-12 07:27] LABS: Anion Gap 8 (5-15); BUN 15 mg/dL (7-18); BUN/Creat Ratio 18.8 RATIO (10-20); Calcium,Total 8.9 mg/dL (8.5-10.1); Chloride 104 mmol/L (98-107); EST Glomerular Filtration Rate 73 mL/min (>60); Est Glom Filt Rate - Afr Amer 88 mL/min (>60); Estimated Creatinine Clearance 50.89 ml/min; Glucose 290 mg/dL (74-106); Potassium 3.9 mmol/L (3.5-5.1); Sodium Level 136 mmol/L (136-145)
[2024-07-12] MEDS: Insulin Lispro 100 UNIT/ML INSULN.PEN 10 UNIT SC (09:24)
[2024-07-12] MEDS: Insulin Lispro 100 UNIT/ML INSULN.PEN SC (09:24)
[2024-07-12] MEDS: Enoxaparin 40 MG/0.4 ML Syringe SC (09:25)
[2024-07-12] MEDS: Gabapentin 300 MG Capsule PO (09:25)
[2024-07-12] MEDS: Lactobacillis Acidophilus 1 CAP PO (09:26)
[2024-07-12] MEDS: Vibegron 75 MG TABLET PO (09:26)
[2024-07-12] MEDS: Aspirin 81 MG TAB.CHEW PO (09:26)
[2024-07-12] MEDS: Tolterodine Tartrate 4 MG CAP.SA PO (09:26)
[2024-07-12] MEDS: Metoprolol(XL)Succ 100 MG Tablet PO (09:27)
[2024-07-12] MEDS: Pantoprazole Sodium 40 MG Tablet PO (09:27)
[2024-07-12] MEDS: Pyridoxine HCl 100 MG Tablet 250 MG PO (09:27)
== END 2024-07-12 11:07 | disposition home or self-care (01) | DRG 312 ==
LOC: ED 17:37 → PCU 07-11 00:07
PROVIDERS: Admitting Provider Hospitalist; Emergency Provider Emergency Medicine; PCP Internal Medicine; Visit Provider Family Medicine
DX: R55 Syncope and collapse (principal); E87.20 Acidosis, unspecified; E11.40 Type 2 diabetes mellitus with diabetic neuropathy, unspecified; F32.A Depression, unspecified; E78.5 Hyperlipidemia, unspecified; D72.829 Elevated white blood cell count, unspecified; J47.9 Bronchiectasis, uncomplicated; I10 Essential (primary) hypertension; F41.9 Anxiety disorder, unspecified; Z79.4 Long term (current) use of insulin; K21.9 Gastro-esophageal reflux disease without esophagitis; T44.7X5A Adverse effect of beta-adrenoreceptor antagonists, initial encounter; N32.81 Overactive bladder; Z79.82 Long term (current) use of aspirin; Z79.899 Other long term (current) drug therapy; Z86.73 Personal history of transient ischemic attack (TIA), and cerebral infarction without residual deficits; Z85.118 Personal history of other malignant neoplasm of bronchus and lung
CPT/HCPCS: 36415; 70450; 71045; 74176; 80048; 80053; 81001; 82962; 83605; 83690; 83880; 84484; 85025; 85027; 87040; 87086; 87088; 87631; 93005; 93306; 97162; 97166; 99285; J7030; P9612; Q9957; A4216; C8929; J2405

== ENCOUNTER 2024-08-03 11:03 | Inpatient (IN) | payer MEDICARE, OTHER, SELFPAY ==
[2024-08-03] VITALS (13 sets, daily range): BP systolic 147–202; BP diastolic 62–102; PULSE 79–102; RESP 16–30; TEMP 36.4–37.3; O2SAT 95–100; BMI 29.2; BMI 28.7
--- NOTE | 2024-08-03 11:17 | EDS_ITS ---
HPI History of Present Illness Chief Complaint: Shortness of Breath [facility] Medical History (Updated 07/20/24 @ 00:01 by Background Becki) Wears glasses MRSA infection History of Clostridium difficile infection Cancer Thyroid disease Achilles tendinitis Insulin dependent diabetes mellitus Walker as ambulation aid Arthritis Bladder disease Easy bruising Injury of back Back pain Unsteady gait Dietary restriction History of hiatal hernia Gastric reflux Non-smoker Chronic cough Hoarseness Shortness of breath on exertion Leg cramps History of edema History of echocardiogram History of stress test Left lumbar radiculopathy Fatigue Overweight (BMI 25.0-29.9) Migraine without aura, not intractable, without status migrainosus 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 disease History of ischemic stroke Macular degeneration 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 Acute gastritis Enlargement of lymph nodes Migraine Restless legs Depression Anxiety GERD (gastroesophageal reflux disease) Accelerated essential hypertension Essential (primary) hypertension Acute chest pain Home Medications ?Medication ?Instructions ?Recorded ?Last Taken ?Type cholecalciferol (vitamin D3) 25 1,000 unit PO DAILY supplement 03/13/17 06/13/23 History mcg (1,000 unit) tablet metoprolol succinate 200 mg 200 mg PO DAILY heart 03/13/17 05/29/24 05:30 History tablet,extended release 24 hr lorazepam 1 mg tablet 1 mg PO DAILY PRN anxiety 08/28/18 05/29/24 05:30 History esomeprazole magnesium 40 mg 40 mg PO DAILY gerd 01/01/20 06/13/23 History capsule,delayed release aspirin 81 mg chewable tablet 81 mg PO DAILY@0800 heart ##30 01/03/20 05/28/24 Rx fesoterodine 4 mg tablet,extended 8 mg PO DAILY bladder 10/10/21 Unknown History release 24 hr (Toviaz) pen needle, diabetic 32 gauge x #450 ea 12/14/21 Unknown Rx 1/4 (BD Ultra-Fine Micro Pen Needle) blood sugar diagnostic (OneTouch #100 ea 12/25/22 Unknown Rx Verio test strips) albuterol sulfate 90 mcg/actuation 2 puff inhalation Q6H PRN 03/07/23 Unknown Rx aerosol inhaler shortness of breath or wheezing #6.7 grams gabapentin 300 mg capsule 300 mg PO BID 30 days #60 caps 06/20/23 Unknown Rx cephalexin 250 mg capsule 250 mg PO QHS 02/17/24 Unknown History cranberry concentrate-ascorbic 1 cap PO DAILY Supplement 02/17/24 Unknown History acid 140 mg-100 mg capsule (Cranberry Plus Vitamin C) insulin aspart U-100 100 unit/mL 25 unit subcut LUNCH 05/21/24 Unknown History (3 mL) subcutaneous pen (Novolog FlexPen U-100 Insulin aspart) insulin aspart U-100 100 unit/mL 38 unit subcut QPM 05/21/24 05/28/24 History (3 mL) subcutaneous pen (Novolog FlexPen U-100 Insulin aspart) insulin aspart U-100 100 unit/mL 60 unit subcut DAILY 05/21/24 Unknown History (3 mL) subcutaneous pen (Novolog FlexPen U-100 Insulin aspart) vibegron 75 mg tablet (Gemtesa) 75 mg PO DAILY 05/21/24 Unknown History duloxetine 60 mg capsule,delayed 60 mg PO QHS mood #90 caps 05/26/24 Unknown Rx release atorvastatin 20 mg tablet 20 mg PO QDAY 07/01/24 Unknown History Lactobacillus acidophilus 500 500,000,000 cell PO DAILY 07/10/24 Unknown History million cell capsule furosemide 20 mg tablet 20 mg PO DAILY PRN edema 08/03/24 08/02/24 History insulin glargine-yfgn 100 unit/mL 22 unit subcut QHS diabetes 08/03/24 Unknown History (3 mL) subcutaneous pen (Semglee mellitus (insulin glargine-yfgn) Pen) Allergy/AdvReac Type Severity Reaction Status Date / Time adhesive tape Allergy Hives/Rash Verified 08/03/24 11:06 ciprofloxacin (From Cipro) Allergy Photosensitivity Verified 08/03/24 11:06 & dermatitis pioglitazone (From Actos) Allergy Unknown Verified 08/03/24 11:06 codeine AdvReac Upset Verified 08/03/24 11:06 Stomach ibandronate sodium (From AdvReac GI Verified 08/03/24 11:06 Boniva) upset/esophageal burning ibuprofen AdvReac GI upset Verified 08/03/24 11:06 lansoprazole AdvReac Diarrhea Verified 08/03/24 11:06 metformin AdvReac Diarrhea Verified 08/03/24 11:06 miconazole (From Neosporin AdvReac Rash/Bliste Verified 08/03/24 11:06 AF) rs nabumetone (From Relafen) AdvReac GI upset Verified 08/03/24 11:06 pantoprazole (From Protonix) AdvReac Diarrhea Verified 08/03/24 11:06 sucralfate (From Carafate) AdvReac feels Verified 08/03/24 11:06 poorly Family History Father Lung cancer Colon cancer Mother Mesothelioma Hypertension Grandmother Heart disease Surgical History (Updated 07/20/24 @ 00:01 by Ministerio Connell) Hx of colonoscopy Hx of right cataract extraction Hx of left cataract extraction History of lobectomy of lung History of lung biopsy H/O endoscopy Spinal injections S/P rotator cuff repair Social History household members: spouse housing: house pets and animals: No Smoking Status: Never smoker second hand exposure: No alcohol intake: current alcohol intake frequency: holidays/special occasions only substance use type: does not use EXAM Physical Exam Const Vital Signs: 08/03/24 11:03 08/03/24 11:27 08/03/24 11:29 Temperature 97.6 F L Temperature Source Oral Pulse Rate 102 H Respiratory Rate 26 H Respiratory Effort Short of Breath Respiratory Pattern Tachypnea Blood Pressure 202/96 H 154/102 H Blood Pressure Mean 131 119 Pulse Ox 100 Oxygen Delivery Method Room Air Room Air 08/03/24 12:05 08/03/24 13:00 08/03/24 14:00 Temperature 97.8 F 97.8 F 98.1 F Temperature Source Temporal Temporal Temporal Pulse Rate 89 91 91 Respiratory Rate 19 H 30 H 20 H Respiratory Effort Respiratory Pattern Blood Pressure 148/95 H 155/75 H 169/62 H Blood Pressure Mean 112 101 97 Pulse Ox 95 96 97 Oxygen Delivery Method Room Air Room Air Room Air 08/03/24 15:00 Temperature 97.9 F Temperature Source Temporal Pulse Rate 89 Respiratory Rate 19 H Respiratory Effort Respiratory Pattern Blood Pressure 149/74 H Blood Pressure Mean 99 Pulse Ox 97 Oxygen Delivery Method Room Air MDM MDM MDM Narrative Medical decision making narrative: HISTORY OF PRESENT ILLNESS: 84-year-old female here with shortness of breath, chest pain diffuse weakness. No focal weakness. Patient also endorsed a headache. She notes it is an ongoing since . They been constant and worsening. Denies exertional dyspnea. Denies lower extremity edema. Denies any PE risk factors. Patient denies sudden onset or thunderclap headache, denies maximal intensity within 1 minute, vomiting, neck pain, stiffness, changes in vision, fever, history malignancy, syncope, or seizures associated with headache. REVIEW OF SYSTEMS: Pertinent positives: Shortness of breath, chest pain, headache Pertinent negatives: Fever, cough, leg swelling, bleeding diathesis, vomiting, diarrhea PHYSICAL EXAM: Nursing triage notes reviewed, Vital signs reviewed Constitutional: please see mdm HENT: MMM, no temporal artery tenderness Eyes: Pupils equal round and reactive to light, Extraocular muscles intact Neck: No stridor, no JVD, full neck ROM Lungs: Clear to auscultation, No wheezing or rales. No increased work of breathing, no conversational dyspnea, no accessory muscle use, no nasal flaring. No respiratory distress noted Heart: Regular rate and rhythm, No murmurs, No rubs and No gallops, 2+ distal pulses (radial, femoral, posterior tibial) in all extremities Abdomen: Soft, there is no tenderness, rigidity, rebound or guarding, no obvious peritoneal signs, no palpable pulsatile abdominal masses, no auscultated abdominal bruit : No CVAT Extremities: No edema Neuro: Alert, oriented to person place and time no new focal neurological deficits, cranial nerves II through XII intact, 5/5 strength in all present extremities. Intact sensation to light touch in all present extremities, 2+ reflexes bilateral patella tendons. Skin: No rash or lesions noted MEDICAL DECISION MAKING: Chief Complaint: Shortness breath, chest pain and weakness External records reviewed: Reviewed echocardiogram from July 11, 2024, approximately 3 weeks ago, showed ejection fraction 75% with stage I diastolic dysfunction Factors affecting care: Type 2 diabetes, hyperlipidemia, hypertension, GERD, Social determinants of health: none History obtained from others: Consults: Internal medicine emergency Dr. Sprague)?recommended MedSur full admission. MDM Narrative: The patient is initially hypertensive with a blood pressure 202/96, tachycardic with a pulse of 102, was tachypneic with a respirate of 26, she is saturating 100% on room air. Her exam was nonfocal. Repeat blood pressure in the room had already started to normalize at 154/102. Heart rate was 96. I considered the following differential diagnosis: ICH, mass, pneumonia, COVID, heart failure, ACS, arrhythmia, anemia, UTI, temporal arteritis. I obtained a broad lab and imaging workup to further elucidate the etiology of patient's complaint specifically ruling out after mentioned life-threatening etiologies. ALL IMAGES (IF OBTAINED) HAVE BEEN PERSONALLY REVIEWED AND INTERPRETED BY MYSELF. EKG with normal sinus rhythm, rate of 93, left axis deviation, QT interval 479, no STEMI, no signs of right heart strain High-sensitivity troponin is negative, no evidence of myocardial ischemia Lipase is wnl indicating no pancreatic inflammation. BMP without evidence of significant electrolyte abnormalities, no anion gap, no acute kidney injury. 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 Given hypoxia will admit the patient for further evaluation and management. Discussed with hospitalist Dr. Sprague. The patient and/or family, caregivers express understanding. The patient and/or family, caregivers agrees with the plan. Shared decision making: I will have a discussion with the patient and or visitors regarding risk/benefits of further testing or admission. They will be made aware of of the risk/benefits inherent in this decision they will be given the opportunity to voice understanding. Total critical care time today provided was at least 0 minutes. This excludes separately billable procedures. Critical care time (if documented) is secondary to the patient having high probability of clinically significant/life threatening deterioration in the patient's condition which required my urgent intervention. Impression: 1. Chest pain 2. Dyspnea 3. Headache 4. Hypoxia Dispo: Admit to [facility] This note was generated with [employer] dictation software. It may contain incorrect words, spelling, and punctuation that were not noted in review of the chart prior to signing. Lab Data Labs: Laboratory Results - last 24 hr 08/03/24 08/03/24 08/03/24 11:34 12:51 14:48 WBC 9.3 RBC 4.13 L Hgb 13.1 Hct 38.6 MCV 93.5 MCH 31.7 MCHC 33.9 RDW Std Deviation 46.5 H RDW Coeff of Win 13.6 Plt Count 278 MPV 9.6 Sodium 139 Potassium 3.4 L Chloride 104 Carbon Dioxide 24.0 Anion Gap 11 BUN 14 Creatinine 1.09 H Estim Creat Clear Calc 37.08 Est GFR (MDRD) Af Amer 62 Est GFR (MDRD) Non-Af 51 L BUN/Creatinine Ratio 12.8 Glucose 166 H Calcium 9.4 Total Bilirubin 0.60 AST 21 ALT 22 Alkaline Phosphatase 82 Troponin I High Sens 35 38 B-Natriuretic Peptide 51.8 Total Protein 7.6 Albumin 3.5 Globulin 4.1 Albumin/Globulin Ratio 0.9 Lipase 18 Urine Color Yellow Urine Clarity Cloudy Urine pH 6.5 Ur Specific [place] 1.015 Urine Protein 30 H Urine Glucose (UA) Normal Urine Ketones 5 H Urine Occult Blood 25 H Urine Nitrite Negative Urine Bilirubin Negative Urine Urobilinogen 1 H Ur Leukocyte Esterase 100 H Urine RBC 0-5 SEEN Urine WBC 10-25 SEEN Ur Squamous Epith Cells 5-10 SEEN Urine Bacteria 2+ Urine Mucus 2+ Radiography Diagnostic Testing: Clinical Impression(s) from Imaging Studies Brain CT 08/03/24 11:48 IMPRESSION: 1. No acute intracranial abnormality. 2. Stable senescent changes. Electronically Signed: Franklin Hernandez MD at 12:51 EST , Chest X-Ray 08/03/24 12:08 IMPRESSION: No acute cardiopulmonary abnormality. 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 Electronically Signed: Franklin Hernandez MD at 13:05 EST Reading Location ID and State: [facility] / ID Tel , Service support , Chest CTA 08/03/24 13:40 IMPRESSION: 1. No acute cardiopulmonary abnormality. 2. No evidence of acute pulmonary embolism. 3. Chronic changes as described above. Electronically Signed: Franklin Hernandez MD at 15:10 EST , Discharge Plan Triage Chief Complaint: Shortness of Breath ED Provider: Toi Davies Dx/Rx/DC Orders Prescriptions: No Action lorazepam 1 mg tablet 1 mg PO DAILY PRN (Reason: anxiety) fesoterodine [Toviaz] 4 mg tablet extended release 24 hr 8 mg PO DAILY albuterol sulfate 90 mcg/actuation HFA aerosol inhaler 2 puff inhalation Q6H PRN (Reason: shortness of breath or wheezing) Qty: 6.7 3RF duloxetine 60 mg capsule,delayed release(DR/EC) 60 mg PO QHS Qty: 90 2RF atorvastatin 20 mg tablet 20 mg PO QDAY metoprolol succinate 200 MG tablet extended release 24 hr 200 mg PO DAILY cholecalciferol (vitamin D3) 1,000 UNIT tablet 1,000 unit PO DAILY esomeprazole magnesium 40 MG capsule,delayed release(DR/EC) 40 mg PO DAILY aspirin 81 MG tablet,chewable 81 mg PO DAILY@0800 Qty: 30 0RF gabapentin 300 mg Capsule 300 mg PO BID 30 Days Qty: 60 0RF Lactobacillus acidophilus 500 million cell capsule 500,000,000 cell PO DAILY furosemide 20 mg tablet 20 mg PO DAILY PRN (Reason: edema) insulin glargine-yfgn [Semglee(insulin glarg-yfgn)Pen] 100 unit/mL (3 mL) insulin pen 22 unit subcut QHS cephalexin 250 mg capsule 250 mg PO QHS Cranberry Plus Vitamin C 140-100 mg capsule 1 cap PO TID Gemtesa 75 mg tablet 75 mg PO DAILY insulin aspart U-100 [Novolog FlexPen U-100 Insulin] 100 unit/mL (3 mL) insulin pen 25 unit subcut LUNCH Rx Instructions: BREAKFAST- 55-60 UNITS, LUNCH- 25 UNITS, DINNER- 38 UNITS insulin aspart U-100 [Novolog FlexPen U-100 Insulin] 100 unit/mL (3 mL) insulin pen 38 unit subcut DINNER Rx Instructions: BREAKFAST- 55-60 UNITS, LUNCH- 25 UNITS, DINNER- 38 UNITS insulin aspart U-100 [Novolog FlexPen U-100 Insulin] 100 unit/mL (3 mL) insulin pen 60 unit subcut DAILY Rx Instructions: BREAKFAST- 55-60 UNITS, LUNCH- 25 UNITS, DINNER- 38 UNITS (DME) pen needle, diabetic [BD Ultra-Fine Micro Pen Needle] 32 gauge x 1/4 needle See Rx Instructions .ROUTE .MEDSUPPLY Qty: 450 1RF Rx Instructions: 4x/day (DME) OneTouch Verio test strips Strip See Rx Instructions .ROUTE .MEDSUPPLY Qty: 100 3RF Rx Instructions: daily Primary Care Provider: Emily Yun Referrals: Emily Yun MD [Primary Care Provider] - Print Language: Grenadian
--- NOTE | 2024-08-03 11:48 | CT_ITS ---
EXAM: CT HEAD WITHOUT INTRAVENOUS CONTRAST CLINICAL INDICATION: HUITRON TECHNIQUE: Multiple axial images were obtained of the head without intravenous contrast. This CT exam was performed using one or more of the following dose reduction techniques: automated exposure control, adjustment of the mA and/or kV according to patient size, and/or use of iterative reconstruction technique. COMPARISON: CT Head dated 07/10/2024 FINDINGS: BRAIN AND EXTRA-AXIAL SPACES: Stable chronic lacunar infarct within the left basal ganglion. No hemorrhage or mass effect. No acute ischemia. Areas of diminished white matter density noted within both cerebral hemispheres suggestive of chronic microvascular change. Prominence of the cortical sulci and ventricles related to volume loss change. Posterior fossa is normal. Basilar cisterns are patent. BONES/JOINTS: Normal calvarium. SINUSES: No acute sinusitis. MASTOID AIR CELLS: Normal. Clear. CT/Brain/Head without Contrast IMPRESSION: 1. No acute intracranial abnormality. 2. Stable senescent changes. Electronically Signed: Franklin Hernandez MD at 12:51 EST ,
--- NOTE | 2024-08-03 11:49 | EKG12_ITS ---
Test Reason : SOB/CP Blood Pressure : */* mmHG Vent. Rate : 93 BPM Atrial Rate : 93 BPM P-R Int : 132 ms QRS Dur : 80 ms QT Int : 386 ms P-R-T Axes : 11 -18 86 degrees QTcB Int : 479 ms Normal sinus rhythm Nonspecific ST and T wave abnormality Abnormal ECG Confirmed by RONDA SEPULVEDA, SIDDHARTHA ([id number]), map editor PAIGE CARLOS ([id number]) on 08/04/2024 8:25:49 AM Referred By: Kat Sprague Confirmed By: SIDDHARTHA BOND MD
--- NOTE | 2024-08-03 12:08 | RAD_ITS ---
EXAM: XR CHEST, 1 VIEW CLINICAL INDICATION: CP, SOB TECHNIQUE: Frontal view of the chest. COMPARISON: XR Chest dated 07/10/2024 FINDINGS: LUNGS AND PLEURAL SPACES: Emphysematous changes of the lung apex again noted associated with adjacent pleural thickening. No pulmonary consolidation. No pleural effusion or pneumothorax. HEART: Normal heart size. MEDIASTINUM: No mediastinal or hilar mass. BONES/JOINTS: No acute abnormality. RAD/Chest 1 View (Portable) IMPRESSION: No acute cardiopulmonary abnormality. 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 Electronically Signed: Franklin Hernandez MD at 13:05 EST ,
[2024-08-03 12:09] LABS: Hematocrit 38.6 % (37-47); Hemoglobin 13.1 g/dL (12.0-15.0); Mean Corp Hgb Conc 33.9 g/dL (32-36); Mean Corpuscular Hgb 31.7 pg (27.0-32.0); Mean Corpuscular Volume 93.5 fL (81-99); Mean Platelet Vol. 9.6 fl (6.2-12.0); Platelet Count 278 K/mm3 (150-450); RBC Distribution Width CV 13.6 % (11.6-14.6); RBC Distribution Width SD 46.5 fl (35.1-43.9); Red Blood Count 4.13 M/mm3 (4.2-5.4); White Blood Count 9.3 K/mm3 (4.4-11.0)
[2024-08-03 12:26] LABS: ALB/GLOB Ratio 0.9 RATIO (0.9-2.4); AST(SGOT) 21 U/L (15-37); Alanine Aminotransfer ALT/SGPT 22 U/L (13-56); Albumin, Serum 3.5 g/dL (3.2-5.0); Alkaline Phosphatase 82 U/L (45-117); Anion Gap 11 (5-15); BUN 14 mg/dL (7-18); BUN/Creat Ratio 12.8 RATIO (10-20); Calcium,Total 9.4 mg/dL (8.5-10.1); Chloride 104 mmol/L (98-107); Creatinine, Serum 1.09 mg/dL (0.55-1.02); EST Glomerular Filtration Rate 51 mL/min (>60); Est Glom Filt Rate - Afr Amer 62 mL/min (>60); Estimated Creatinine Clearance 37.08 ml/min; Globulin 4.1 g/dL (2.2-4.2); Glucose 166 mg/dL (74-106); Lipase 18 U/L (13-75); Potassium 3.4 mmol/L (3.5-5.1); Protein, Total 7.6 g/dL (6.4-8.2); Sodium Level 139 mmol/L (136-145); Troponin-I HS (w/2H Reflex) 35 pg/mL (3.0-54.0)
[2024-08-03 12:33] LABS: BNP,B-Type NATRIURETIC PEPTIDE 51.8 pg/mL (0-100)
[2024-08-03 12:58] LABS: Color, Urine Yellow (Yellow); Glucose, Dipstick Normal (Normal); Ketone-Dipstick 5 mg/dl (Negative); Leukocyte Esterase-Dipstick 100 /ul (Negative); Nitrite-Dipstick Negative (Negative); Occult Blood-Urine 25 /ul (Negative); Protein-Dipstick 30 mg/dl (Negative); Specific Gravity, Urine 1.015 (1.002-1.030); Urine Bilirubin Dipstick Negative (Negative); Urine Clarity Cloudy (Clear); Urine Urobilinogen 1 mg/dl (Normal); Urine pH 6.5 (5.0 - 8.0)
[2024-08-03 13:15] LABS: Bacteria 2+ /hpf (None Seen); Mucous, Urine 2+ /hpf (<or=2+); Red Blood Cells-Urine 0-5 SEEN /hpf (0-5); Squamous Epithelial Cells - UA 5-10 SEEN /hpf (5-10); White Blood Cells 10-25 SEEN /hpf (0-5)
--- NOTE | 2024-08-03 13:40 | CT_ITS ---
EXAM: CT ANGIOGRAPHY CHEST WITHOUT AND WITH INTRAVENOUS CONTRAST CLINICAL INDICATION: CP, SOB, hypoxia r/o PE TECHNIQUE: Helically acquired angiography images were obtained of the chest without and with intravenous contrast. This CT exam was performed using one or more of the following dose reduction techniques: automated exposure control, adjustment of the mA and/or kV according to patient size, and/or use of iterative reconstruction technique. MIP reconstructed images were created and reviewed. CONTRAST: IV 75mL [id number] COMPARISON: Chest radiograph 08/03/2024 FINDINGS: PULMONARY ARTERIES: Normal. Normal in caliber. No evidence of pulmonary embolism. AORTA: Normal. Normal in caliber. No evidence of dissection. GREAT VESSELS OF AORTIC ARCH: Normal. Normal in caliber. No evidence of dissection. LUNGS AND PLEURAL SPACES: Minimal left pleural effusion versus scarring. Small calcified granuloma within the right middle lobe. Mild peripheral interstitial thickening of both lungs suggestive of chronic inflammatory change. No pulmonary consolidation. The patient appears to have had left lower lobectomy. No mass. No pneumothorax. HEART: Normal. Heart size is normal. No pericardial effusion. No significant coronary artery calcifications. MEDIASTINUM: Small esophageal hiatal hernia. No mediastinal or hilar adenopathy. BONES/JOINTS: Normal. No suspicious lytic or blastic abnormality. LYMPH NODES: Small calcified right hilar lymph nodes. STOMACH AND BOWEL: 12 mm nodular density adjacent to the distal esophagus may represent an esophageal diverticulum or reactive mediastinal lymph node. CT/CTA Chest W/WO Contrast IMPRESSION: 1. No acute cardiopulmonary abnormality. 2. No evidence of acute pulmonary embolism. 3. Chronic changes as described above. Electronically Signed: Franklin Hernandez MD at 15:10 EST ,
[2024-08-03] MEDS: Ondansetron 4 MG/2 ML Vial IV (13:49)
[2024-08-03 14:01] LABS: Reflex Troponin-HS? (from REC) Y
[2024-08-03 15:21] LABS: Troponin-I HS 38 pg/mL (3.0-54.0)
--- NOTE | 2024-08-03 15:38 | PCM.HP.STD ---
HPI - General General Date of Admission: 08/03/24 Date of Service: 08/03/24 Chief Complaint: Debility, Headache, Back discomfort, Cough/Congestion, Diarrhea. 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 She does report that she has been having chest discomfort at rest, laying down with coughing and notes it does not necessarily worsen with activity. She does have dyspnea even with short walking distances. Her back discomfort she notes is primarily between her shoulder blades. She notes the headache is primarily in the frontal region. She has not been eating or drinking much because of not feeling well and she also has had some mild nausea without emesis. She denies any known ill contacts. Workup in the ED included T98.1, heart 108, BP 130/68, respiratory rate 14, 96% on room air with most recent repeat vitals T97.8 Temporally, heart rate 91, BP 155/75, respiratory rate 30, 96% on room air however patient with ambulation patient to 83% on RA with improvement with rest only, CBC with WC 9.3, hemoglobin 13.1, platelet 278 without differential, CMP with potassium 3.4 otherwise unremarkable, BNP 51.8, troponin 35, lipase 18, urinalysis with cloudy appearing urine, specific gravity 1.015, protein 30, ketone 5, occult blood 25, negative nitrite, leukocyte Estrace 100, urine WBCs 10-25 with 2+ urine bacteria, urine culture pending per ED, SARS COVID/influenza/RSV PCR negative, CT of the brain with no acute intracranial findings with stable senescent changes with a chronic lacunar infarct within the left basal ganglion and changes suggestive of chronic microvascular change as well as volume loss change, chest x-ray with no acute cardiopulmonary findings however there is postinflammatory and emphysematous changes in the right upper lobe, chest CTA with no acute cardiopulmonary finding nor any evidence of acute pulmonary embolism or dissection. In the ED patient ministered Zofran 4 mg IV x 1. PFSH Medical History Wears glasses MRSA infection History of Clostridium difficile infection Cancer Thyroid disease Achilles tendinitis Insulin dependent diabetes mellitus Walker as ambulation aid Arthritis Bladder disease Easy bruising Injury of back Back pain Unsteady gait Dietary restriction History of hiatal hernia Gastric reflux Non-smoker Chronic cough Hoarseness Shortness of breath on exertion Leg cramps History of edema History of echocardiogram History of stress test Left lumbar radiculopathy Fatigue Overweight (BMI 25.0-29.9) Migraine without aura, not intractable, without status migrainosus 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 disease History of ischemic stroke Macular degeneration 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 Acute gastritis Enlargement of lymph nodes Migraine Restless legs Depression Anxiety GERD (gastroesophageal reflux disease) Accelerated essential hypertension Essential (primary) hypertension Acute chest pain Home Medications ?Medication ?Instructions ?Recorded ?Last Taken ?Type cholecalciferol (vitamin D3) 25 1,000 unit PO DAILY supplement 03/13/17 06/13/23 History mcg (1,000 unit) tablet metoprolol succinate 200 mg 200 mg PO DAILY heart 03/13/17 05/29/24 05:30 History tablet,extended release 24 hr lorazepam 1 mg tablet 1 mg PO DAILY PRN anxiety 08/28/18 05/29/24 05:30 History esomeprazole magnesium 40 mg 40 mg PO DAILY gerd 01/01/20 06/13/23 History capsule,delayed release aspirin 81 mg chewable tablet 81 mg PO DAILY@0800 heart ##30 01/03/20 05/28/24 Rx fesoterodine 4 mg tablet,extended 8 mg PO DAILY bladder 10/10/21 Unknown History release 24 hr (Toviaz) pen needle, diabetic 32 gauge x #450 ea 12/14/21 Unknown Rx 1/4 (BD Ultra-Fine Micro Pen Needle) blood sugar diagnostic (OneTouch #100 ea 12/25/22 Unknown Rx Verio test strips) albuterol sulfate 90 mcg/actuation 2 puff inhalation Q6H PRN 03/07/23 Unknown Rx aerosol inhaler shortness of breath or wheezing #6.7 grams gabapentin 300 mg capsule 300 mg PO BID 30 days #60 caps 06/20/23 Unknown Rx cephalexin 250 mg capsule 250 mg PO QHS 02/17/24 Unknown History cranberry concentrate-ascorbic 1 cap PO TID Supplement 02/17/24 Unknown History acid 140 mg-100 mg capsule (Cranberry Plus Vitamin C) insulin aspart U-100 100 unit/mL 25 unit subcut LUNCH 05/21/24 Unknown History (3 mL) subcutaneous pen (Novolog FlexPen U-100 Insulin aspart) insulin aspart U-100 100 unit/mL 38 unit subcut DINNER 05/21/24 05/28/24 History (3 mL) subcutaneous pen (Novolog FlexPen U-100 Insulin aspart) insulin aspart U-100 100 unit/mL 60 unit subcut DAILY 05/21/24 Unknown History (3 mL) subcutaneous pen (Novolog FlexPen U-100 Insulin aspart) vibegron 75 mg tablet (Gemtesa) 75 mg PO DAILY 05/21/24 Unknown History duloxetine 60 mg capsule,delayed 60 mg PO QHS mood #90 caps 05/26/24 Unknown Rx release atorvastatin 20 mg tablet 20 mg PO QDAY 07/01/24 Unknown History Lactobacillus acidophilus 500 500,000,000 cell PO DAILY 07/10/24 Unknown History million cell capsule furosemide 20 mg tablet 20 mg PO DAILY PRN edema 08/03/24 08/02/24 History insulin glargine-yfgn 100 unit/mL 22 unit subcut QHS diabetes 08/03/24 Unknown History (3 mL) subcutaneous pen (Semglee mellitus (insulin glargine-yfgn) Pen) Allergy/AdvReac Type Severity Reaction Status Date / Time adhesive tape Allergy Hives/Rash Verified 08/03/24 11:06 ciprofloxacin (From Cipro) Allergy Photosensitivity Verified 08/03/24 11:06 & dermatitis pioglitazone (From Actos) Allergy Unknown Verified 08/03/24 11:06 codeine AdvReac Upset Verified 08/03/24 11:06 Stomach ibandronate sodium (From AdvReac GI Verified 08/03/24 11:06 Boniva) upset/esophageal burning ibuprofen AdvReac GI upset Verified 08/03/24 11:06 lansoprazole AdvReac Diarrhea Verified 08/03/24 11:06 metformin AdvReac Diarrhea Verified 08/03/24 11:06 miconazole (From Neosporin AdvReac Rash/Bliste Verified 08/03/24 11:06 AF) rs nabumetone (From Relafen) AdvReac GI upset Verified 08/03/24 11:06 pantoprazole (From Protonix) AdvReac Diarrhea Verified 08/03/24 11:06 sucralfate (From Carafate) AdvReac feels Verified 08/03/24 11:06 poorly Family History Father Lung cancer Colon cancer Mother Mesothelioma Hypertension Grandmother Heart disease Surgical History Hx of colonoscopy Hx of right cataract extraction Hx of left cataract extraction History of lobectomy of lung History of lung biopsy H/O endoscopy Spinal injections S/P rotator cuff repair Social History household members: spouse housing: house pets and animals: No Smoking Status: Never smoker second hand exposure: No alcohol intake: current alcohol intake frequency: holidays/special occasions only substance use type: does not use ROS ROS Narrative Admission Review of Systems: CONSTITUTIONAL: No weight loss, fever, chills, weakness or fatigue. HEENT: + Congestion, rhinorrhea, headaches. Eyes: No visual loss, blurred vision, double vision or yellow sclerae. Ears, Nose, Throat: No hearing loss, sneezing. SKIN: No rash or itching, lesions, wounds. CARDIOVASCULAR: + Chest discomfort, edema. No palpitations, orthopnea, syncopal events. RESPIRATORY: + Dyspnea, cough. No wheezing, hemoptysis. GASTROINTESTINAL: + Anorexia, nausea without emesis, diarrhea, abdominal generalized discomfort. No melena, BRBPR. GENITOURINARY: No dysuria, frequency, urgency or retention. NEUROLOGICAL: + Headaches. No dizziness, syncope, paralysis, ataxia, numbness or tingling in the extremities, focal weakness, change in bowel or bladder control, seizure. MUSCULOSKELETAL: + muscle, back pain, joint pain or stiffness. HEMATOLOGIC: No anemia. + Easy bleeding/bruising. LYMPHATICS: No enlarged nodes. No history of splenectomy. PSYCHIATRIC: + History of anxiety and depression. ENDOCRINOLOGIC: No reports of sweating, cold or heat intolerance. No polyuria or polydipsia. ALLERGIES: + History of hives. Vital Signs Vital Signs Vital Signs: 08/03/24 11:03 08/03/24 11:27 08/03/24 11:29 Temperature 97.6 F L Temperature Source Oral Pulse Rate 102 H Respiratory Rate 26 H Respiratory Effort Short of Breath Respiratory Pattern Tachypnea Blood Pressure 202/96 H 154/102 H Blood Pressure Mean 131 119 Pulse Ox 100 Oxygen Delivery Method Room Air Room Air 08/03/24 12:05 08/03/24 13:00 08/03/24 14:00 Temperature 97.8 F 97.8 F 98.1 F Temperature Source Temporal Temporal Temporal Pulse Rate 89 91 91 Respiratory Rate 19 H 30 H 20 H Respiratory Effort Respiratory Pattern Blood Pressure 148/95 H 155/75 H 169/62 H Blood Pressure Mean 112 101 97 Pulse Ox 95 96 97 Oxygen Delivery Method Room Air Room Air Room Air 08/03/24 15:00 Temperature 97.9 F Temperature Source Temporal Pulse Rate 89 Respiratory Rate 19 H Respiratory Effort Respiratory Pattern Blood Pressure 149/74 H Blood Pressure Mean 99 Pulse Ox 97 Oxygen Delivery Method Room Air Weight Weight: 159 lb 9.835 oz Body Mass Index (BMI) 29.2 Physical Exam Narrative Physical Examination: General: Awake, alert, oriented x 3 and cooperative, laying in the ED bed, fatigued and ill-appearing. Skin: Normal color, normal turgor, no icterus, no cyanosis except for occasional stage ecchymoses, abrasions. HEENT: AT/NC, EOMI, PERRLA, dry MM, no carotid bruits or JVD noted. Lungs: Diminished, greater bases, mildly increased respiratory rate but no distress, no rales, ronchi or wheezing. Heart: Regular rate and rhythm; no gallop, rub audible. Abdomen: Soft, mild generalized discomfort with palpation in all singleton with no rebound or guarding, no marked distention, hyperactive BS, no appreciated HSM. Extremities: No cyanosis, no clubbing, no marked peripheral pitting edema noted. Neurological: Patient awake, alert, oriented as noted, cognitive function intact; pupils equally reactive to light and accommodation, cranial nerves grossly normal, moving all 4 extremities, no focal deficits, strength moderately to severely globally decreased. Psychiatric: Affect appears flat, fatigued, ill-appearing, no acute evidence of depressive or anxiety feelings but does have underlying history. Results Lab / Micro Data 08/03/24 11:34 08/03/24 11:34 Labs: Laboratory Results - last 24 hr 08/03/24 11:34: WBC 9.3, RBC 4.13 L, Hgb 13.1, Hct 38.6, MCV 93.5, MCH 31.7, MCHC 33.9, RDW Std Deviation 46.5 H, RDW Coeff of Win 13.6, Plt Count 278, MPV 9.6, Sodium 139, Potassium 3.4 L, Chloride 104, Carbon Dioxide 24.0, Anion Gap 11, BUN 14, Creatinine 1.09 H, Estim Creat Clear Calc 37.08, Est GFR (MDRD) Af Amer 62, Est GFR (MDRD) Non-Af 51 L, BUN/Creatinine Ratio 12.8, Glucose 166 H, Calcium 9.4, Total Bilirubin 0.60, AST 21, ALT 22, Alkaline Phosphatase 82, Troponin I High Sens 35, B-Natriuretic Peptide 51.8, Total Protein 7.6, Albumin 3.5, Globulin 4.1, Albumin/Globulin Ratio 0.9, Lipase 18 08/03/24 12:51: Urine Color Yellow, Urine Clarity Cloudy, Urine pH 6.5, Ur Specific Nerinx 1.015, Urine Protein 30 H, Urine Glucose (UA) Normal, Urine Ketones 5 H, Urine Occult Blood 25 H, Urine Nitrite Negative, Urine Bilirubin Negative, Urine Urobilinogen 1 H, Ur Leukocyte Esterase 100 H, Urine RBC 0-5 SEEN, Urine WBC 10-25 SEEN, Ur Squamous Epith Cells 5-10 SEEN, Urine Bacteria 2+, Urine Mucus 2+ 08/03/24 14:48: Troponin I High Sens 38 Micro: Microbiology 08/03/24 11:55 Mucosa - Nose SARS-CoV-2, Influenza & RSV (PCR) - Final Imaging Radiology Impression Brain CT 08/03/24 11:48 IMPRESSION: 1. No acute intracranial abnormality. 2. Stable senescent changes. Electronically Signed: Franklin Hernandez MD at 12:51 EST , Chest X-Ray 08/03/24 12:08 IMPRESSION: No acute cardiopulmonary abnormality. 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 Electronically Signed: Franklin Hernandez MD at 13:05 EST Reading Location ID and State: [address] [place] [address] Tel , Service support , Chest CTA 08/03/24 13:40 IMPRESSION: 1. No acute cardiopulmonary abnormality. 2. No evidence of acute pulmonary embolism. 3. Chronic changes as described above. 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 #1. Acute Hypoxia secondary to Debility, weakness with URI type symptoms suspicious for acute viral syndrome with adult failure to thrive in addition to poor appetite and loose stools concurrently also possibly secondary to #2: Will admit to medical surgical floor, maintain on fall precautions, continue judicious hydration, encourage appropriate oral intake, will obtain full respiratory viral panel as well as procalcitonin and if able to induce sputum certainly will obtain sputum, continue evaluation and treatment of UTI potential as noted below #2, with recurrent diarrhea will obtain C. difficile and enteric pathogens to be cautious given underlying history, will encourage Acapella 3 times daily and initiate guaifenesin, PT/OT/case management consulted for discharge planning. #2. Possible Acute Complicated Urinary Tract Infection: UA upon ED evaluation remarkable, pending UCx, will continue judicious IVFs, monitor I/Os, continue IV cefepime given previous urine culture history w/ transition as able pending sensitivities and speciation. Previous urine cultures noted 03/12/2019 Klebsiella pneumonia, 03/12/2018 Klebsiella oxytoca and 04/24/2017 Pseudomonas aeruginosa. #3. Incidentally noted nodular density adjacent to the distal esophagus: Possibly esophageal diverticulum reactive mediastinal lymph node, encourage continued outpatient follow-up and assessment. #4. Hypokalemia: Admission K+ 3.4, magnesium level requested, supplementation given, repeat level in AM. #5. Hx CVA: CT of the brain with stable chronic lacunar infarct within the left basal ganglia as well as chronic microvascular change in addition to volume loss change, continue aspirin, statin, hypertensive regimen, diabetic regimen with alterations as noted. Most recent echocardiogram noted 07/11/2024 with hyperdynamic LV with EF 75%, mid cavity dynamic gradient 63 mmHg, stage I diastolic dysfunction, mild diffuse MV thickening, mild focal AV thickening with contrast injection performed. #6. Hx Left Lung Carcinoid bronchial adenoma Lung CA complicated by bronchiectasis: s/p lobectomy, considered in remission, last noted follow-up with pulmonary medicine 02/07/2024 with encouragement of continue Acapella 3 times daily and usage of guaifenesin twice daily. Most recent noted pulmonary function test 01/25/2024 with irreversible moderate mixed ventilatory defect with symmetric reduction diffusing capacity. #7. Chronic mild cognitive impairment: Potentially related to advanced age but also previous stroke history, continue treatments as noted, maintain on fall precautions, PT/OT/case management consulted for discharge planning. #8. Chronic Kidney Disease Stage II primarily per GFR trending although has vacillated to CKD stage III unclear subtype but suspect this was acute presentations: Admission BUN/Cr 26/08.02, GFR currently 51 but previously has primarily been stage II consistent, baseline renal function 0.6-0.9, most recently prior to this 06/15/2024 creatinine 0.8, repeat BMP in AM. #9. Anxiety and depression: We will continue patient home duloxetine regimen as well as very cautiously home as needed lorazepam regimen with hold for sedation. #10. Hypertension: Continue home regimen including metoprolol, PRN hydralazine. #11. Hyperlipidemia: Will continue patient on statin therapy. #12. IDDM with chronic neuropathy: Will continue home insulin regimen, ADA diet, accu checks w/ ISS, continue home gabapentin regimen. #13. GERD: We will continue patient home PPI. #14. DVT prophylaxis: Lovenox. #15. CODE status: Patient HCPOA is her who is present and living will is currently in place. Discussed CODE status at length including difference between FULL code, DNR-CCA and DNR-CC status. Following discussions about the differences in these status, requested Full Code status. Advanced Care Planning Face to Face Time: 16 minutes. Charges/Coding Visit Charges Inpatient E&M: 87802 Init Hosp L3 Procedures Hospitalists Procedures: 87477 Advncd Care Plan 30 Min
[2024-08-03 16:20] LABS: Magnesium 1.7 mg/dL (1.6-2.6)
[2024-08-03 16:33] LABS: Procalcitonin 0.06 ng/mL (0.00-0.09)
[2024-08-03] MEDS: 0.9% Normal Saline (1000mL) 1,000 ML 100 ML IV (17:57)
[2024-08-03 18:00] LABS: Bedside Glucose 151 mg/dL (74-106)
[2024-08-03] MEDS: Cefepime HCl 2 GM in 0.9% Normal Saline (100mL MB+) 100 ML IV ×2 (18:01→21:24)
[2024-08-03] MEDS: Potassium Chloride Oral Tablet 20 MEQ 40 MEQ PO (18:02)
[2024-08-03] MEDS: guaiFENesin 1,200 MG Tablet 1200 MG PO ×2 (18:03→21:24)
[2024-08-03] MEDS: Insulin Lispro 100 UNIT/ML INSULN.PEN SC (21:22)
[2024-08-03] MEDS: Acetaminophen 325 MG Tablet 650 MG PO (21:24)
[2024-08-03] MEDS: MELATONIN 3 MG TABLET PO (21:24)
[2024-08-03 22:51] LABS: Bedside Glucose 242 mg/dL (74-106)
[2024-08-03] MEDS: DiphenhydrAMINE 25 MG Capsule PO (23:26)
[2024-08-03] MEDS: MENTHOL 226.8 GM JAR 1 APPLIC TOPICAL (23:26)
[2024-08-04] VITALS (7 sets, daily range): BP systolic 149–160; BP diastolic 70–76; PULSE 74–98; RESP 16–18; TEMP 36.7–37; O2SAT 91–99; BMI 28.9
[2024-08-04] MEDS: 0.9% Normal Saline (1000mL) 1,000 ML 100 ML IV (05:20)
[2024-08-04] MEDS: Budesonide Respules 0.5 MG/2 ML AMPUL.NEB. INHALATION ×2 (06:43→19:26)
[2024-08-04] MEDS: Insulin Lispro 100 UNIT/ML INSULN.PEN SC ×4 (06:50→22:00)
[2024-08-04 06:53] LABS: Bedside Glucose 220 mg/dL (74-106)
[2024-08-04 06:56] LABS: Absolute Lymphocyte Count 1.68 X10^3/uL (0.83-4.51); Absolute Neutrophil Count 3.7 X10^3/uL (2.0-7.7); Basophil# 0.04 X10^3/uL; Basophil% 0.6 % (0-1); Eosinophil# 0.28 X10^3/uL; Eosinophils% 4.4 % (0-5); Hematocrit 36.5 % (37-47); Lymphocyte # 1.68 X10^3/ul (0.83-4.51); Lymphocyte % 26.2 % (19-41); Mean Corp Hgb Conc 32.9 g/dL (32-36); Mean Corpuscular Hgb 31.4 pg (27.0-32.0); Mean Corpuscular Volume 95.5 fL (81-99); Mean Platelet Vol. 9.7 fl (6.2-12.0); Monocyte# 0.69 X10^3/uL; Monocyte% 10.7 % (0-10); NRBC Flagged by Analyzer 0 % (0-5); Neutrophil # 3.72 X10^3/uL (2.7-7.7); Neutrophil % 57.9 % (47-70); Platelet Count 224 K/mm3 (150-450); RBC Distribution Width CV 13.7 % (11.6-14.6); RBC Distribution Width SD 47.9 fl (35.1-43.9); Red Blood Count 3.82 M/mm3 (4.2-5.4); White Blood Count 6.4 K/mm3 (4.4-11.0)
[2024-08-04 07:50] LABS: ALB/GLOB Ratio 0.9 RATIO (0.9-2.4); AST(SGOT) 23 U/L (15-37); Alanine Aminotransfer ALT/SGPT 20 U/L (13-56); Albumin, Serum 3.1 g/dL (3.2-5.0); Alkaline Phosphatase 72 U/L (45-117); Anion Gap 5 (5-15); BUN 13 mg/dL (7-18); BUN/Creat Ratio 15.9 RATIO (10-20); Calcium,Total 8.9 mg/dL (8.5-10.1); Chloride 108 mmol/L (98-107); Creatinine, Serum 0.82 mg/dL (0.55-1.02); EST Glomerular Filtration Rate 71 mL/min (>60); Est Glom Filt Rate - Afr Amer 86 mL/min (>60); Estimated Creatinine Clearance 49.08 ml/min; Globulin 3.5 g/dL (2.2-4.2); Glucose 233 mg/dL (74-106); Potassium 5.1 mmol/L (3.5-5.1); Protein, Total 6.6 g/dL (6.4-8.2); Sodium Level 137 mmol/L (136-145)
[2024-08-04] MEDS: Cefepime HCl 2 GM in 0.9% Normal Saline (100mL MB+) 100 ML IV ×2 (09:54→22:00)
[2024-08-04] MEDS: guaiFENesin 1,200 MG Tablet 1200 MG PO ×2 (09:55→22:01)
[2024-08-04] MEDS: Enoxaparin 40 MG/0.4 ML Syringe SC (09:55)
[2024-08-04] MEDS: Acetaminophen 325 MG Tablet 650 MG PO ×2 (11:41→22:01)
[2024-08-04 12:11] LABS: Bedside Glucose 336 mg/dL (74-106)
--- NOTE | 2024-08-04 15:23 | CASEMGMT ---
MANNY QUEZADA Readmission Note Previous Admission: 07/10/24-07/12/24 Diagnosis: syncope, concern for occult infection DC Disposition: Home Current Admission: Admitted 08/03/24 Current Diagnosis: SOB Pt dc'd to home last stay. Pt did have a f/u with PCP and took her full course of antibiotic. Pt states she is taking meds as ordered. Pt represented with sob, chest pain and diarrhea. Pt had walking pox and does not qualify for home oxygen. MANNY QUEZADA met with pt, her , dtr and son in law in room. Pt states she feels weak. Discussed options of Home with C vs SNF. Pt is aware of 3 MN rule and it is uncertain at this time if she will meet this. Pt states she would like to go to [facility] TCU after much discussion with family. She states she never really recovered from the last hospital stay. Pt is unable to completely care for pt at home physically. Discussed with the hospitalist. MANNY QUEZADA back into pt room to discuss options should she not be at the hospital for 3 MN. Discussed again Home with [facility] vs Rehab unit. Pt and family were agreeable to [facility] Rehab unit. They deny need for list for any other options of SNF or rehab units. Updated SW who contacted Rehab unit and they will review referral tomorrow. MANNY QUEZADA made pt aware of this as well as hospitalist. Pt and family aware MANNY QUEZADA or [facility] will follow up with them tomorrow. Pt and family would like to speak to hospitalist, hospitalist aware. DC Plan: TBD pending acceptance to [facility] Rehab unit.
--- NOTE | 2024-08-04 15:24 | CHAPLAIN ---
Type of Pastoral Visit _x__ Initial Visit ___ Follow-up Visit ___ On-call Visit ___ General Patient Visit ___ Spiritual Assessment ___ Family Conference ___ Bereavement ___ Rapid Response ___ Code Blue ___ Other (describe below) Pastoral Care Referral From _x__ Patient ___ Family ___ Nurse ___ Physician ___ Histopathologist ___ Blind Lacer ___ Other (describe below) Sacrament/Intervention _x__ Active listening ___ Anointing ___ Sikhism ___ Bereavement ___ Communion ___ Sharifa exploration ___ _x__ Life review _x__ Prayer ___ Reconciliation ___ Sacrament of Sick ___ Supportive presence ___ Wedding ___ Other (describe below) Pastoral Comments patient explains her [facility] over the last month; pt is anxious to find out more about reason for her health issues; daughter is with her; pt asks for a prayer
--- NOTE | 2024-08-04 16:21 | DCINST_ITS ---
Discharge Instructions Diet Discharge Diet: 1800 Calorie Control Diet DC O2, CPAP, BIPAP needs RN Home O2 Qualification: Home O2 Qualification: Is the patient on home oxygen No 08/04/24 14:26 Home O2 Qualification: AT REST 1- Pulse Ox at rest 96 08/04/24 14:26 Home O2 Qualification: WITH AMBULATION 1- Pulse Ox with ambulation 91 08/04/24 14:26 1- Oxygen Flow Rate with 0 08/04/24 14:26 ambulation Home O2 Discharge instructions: Yes Type of respiratory needs?: Oxygen (resume home oxygen settings-3 L at rest, 6L when ambulating) Oxygen frequency: Continu ous (3L) and With Ambulation (6L) Dressing / Incision Discharge Activity: Return to Normal Activity Weight Bearing Status: Full weight bearing Follow Up Care Test Results: Test results from this visit will be discussed in further detail at your follow- up appointment, if applicable. Discharge Plan Admission Admit Date/Time: 08/03/24 15:43 Primary Reason for Your Visit: exacerbation of COPD Attending Provider: Christian Hollingsworth Primary Care Provider: Emily Yun Consulting Providers: Kat Sprague Discharge Orders/Prescriptions Prescriptions: No Action lorazepam 1 mg tablet 1 mg PO DAILY PRN (Reason: anxiety) fesoterodine [Toviaz] 4 mg tablet extended release 24 hr 8 mg PO DAILY albuterol sulfate 90 mcg/actuation HFA aerosol inhaler 2 puff inhalation Q6H PRN (Reason: shortness of breath or wheezing) Qty: 6.7 3RF duloxetine 60 mg capsule,delayed release(DR/EC) 60 mg PO QHS Qty: 90 2RF atorvastatin 20 mg tablet 20 mg PO QDAY metoprolol succinate 200 MG tablet extended release 24 hr 200 mg PO DAILY cholecalciferol (vitamin D3) 1,000 UNIT tablet 1,000 unit PO DAILY esomeprazole magnesium 40 MG capsule,delayed release(DR/EC) 40 mg PO DAILY aspirin 81 MG tablet,chewable 81 mg PO DAILY@0800 Qty: 30 0RF gabapentin 300 mg Capsule 300 mg PO BID 30 Days Qty: 60 0RF Lactobacillus acidophilus 500 million cell capsule 500,000,000 cell PO DAILY furosemide 20 mg tablet 20 mg PO DAILY PRN (Reason: edema) insulin glargine-yfgn [Semglee(insulin glarg-yfgn)Pen] 100 unit/mL (3 mL) insulin pen 22 unit subcut QHS cephalexin 250 mg capsule 250 mg PO QHS Cranberry Plus Vitamin C 140-100 mg capsule 1 cap PO TID Gemtesa 75 mg tablet 75 mg PO DAILY insulin aspart U-100 [Novolog FlexPen U-100 Insulin] 100 unit/mL (3 mL) insulin pen 25 unit subcut LUNCH Rx Instructions: BREAKFAST- 55-60 UNITS, LUNCH- 25 UNITS, DINNER- 38 UNITS insulin aspart U-100 [Novolog FlexPen U-100 Insulin] 100 unit/mL (3 mL) insulin pen 38 unit subcut DINNER Rx Instructions: BREAKFAST- 55-60 UNITS, LUNCH- 25 UNITS, DINNER- 38 UNITS insulin aspart U-100 [Novolog FlexPen U-100 Insulin] 100 unit/mL (3 mL) insulin pen 60 unit subcut DAILY Rx Instructions: BREAKFAST- 55-60 UNITS, LUNCH- 25 UNITS, DINNER- 38 UNITS (DME) pen needle, diabetic [BD Ultra-Fine Micro Pen Needle] 32 gauge x 1/4 needle See Rx Instructions .ROUTE .MEDSUPPLY Qty: 450 1RF Rx Instructions: 4x/day (DME) OneTouch Verio test strips Strip See Rx Instructions .ROUTE .MEDSUPPLY Qty: 100 3RF Rx Instructions: daily Referrals / Follow Up: Emily Yun MD [Primary Care Provider] -
--- NOTE | 2024-08-04 16:23 | CASEMGMT ---
Addendum entered by Shireen Lazaro 08/05/24 12:16: [facility] declined referral. SW referred to TCU. TCU to review. SW remains available to follow. ALEXANDRIA Cooper Original Note: Social Work- SW received notice from RNCM that pt would like referral to rehab unit. SW completed referral to [facility]. SW remains available to follow. ALEXANDRIA Cooper
[2024-08-04 16:48] LABS: Bedside Glucose 253 mg/dL (74-106)
--- NOTE | 2024-08-04 18:03 | PCM.PN.HOSP ---
Reason for Visit Reason for Visit: Diagnoses Hypoxemia (08/03/24) Subjective Subjective Patient was seen and examined today, I talked at length with her family members who are in the room at the time my examination. Patient is currently on room air, she was ambulated and did not require oxygen. Objective Data Objective Data Vital Signs: Vital Signs Temp Pulse Resp BP Pulse Ox O2 Del Method 98.2 F 97 16 159/76 H 97 Room Air 08/04/24 14:24 08/04/24 14:24 08/04/24 14:24 08/04/24 14:24 08/04/24 14:24 08/04/24 14:24 Oxygen Delivery Method Room Air Weight: 71.8 kg Body Mass Index (BMI) 28.9 Intake & Output: Intake and Output for Last 24 Hours 08/02/24 08/03/24 08/04/24 23:59 23:59 23:59 Intake Total 400 / 400 1831.67 / 1831.67 Balance 400 / 400 1831.67 / 1831.67 Lab / Micro Data 08/04/24 06:10 08/04/24 06:10 Labs: Laboratory Results - last 24 hr 08/03/24 21:17: POC Glucose 242 H 08/04/24 06:10: WBC 6.4, RBC 3.82 L, Hgb 12.0, Hct 36.5 L, MCV 95.5, MCH 31.4, MCHC 32.9, RDW Std Deviation 47.9 H, RDW Coeff of Win 13.7, Plt Count 224, MPV 9.7, Immature Gran % (Auto) 0.200, Neut % (Auto) 57.9, Lymph % (Auto) 26.2, [place] % (Auto) 10.7 H, Eos % (Auto) 4.4, Baso % (Auto) 0.6, Absolute Neuts (auto) 3.7, Absolute Lymphs (auto) 1.68, Nucleated RBC % 0, Sodium 137, Potassium 5.1, Chloride 108 H, Carbon Dioxide 24.0, Anion Gap 5, BUN 13, Creatinine 0.82, Estim Creat Clear Calc 49.08, Est GFR (MDRD) Af Amer 86, Est GFR (MDRD) Non-Af 71, BUN/Creatinine Ratio 15.9, Glucose 233 H, Calcium 8.9, Total Bilirubin 0.80, AST 23, ALT 20, Alkaline Phosphatase 72, Total Protein 6.6, Albumin 3.1 L, Globulin 3.5, Albumin/Globulin Ratio 0.9 08/04/24 06:34: POC Glucose 220 H 08/04/24 11:34: POC Glucose 336 H 08/04/24 16:28: POC Glucose 253 H Micro: Microbiology 08/04/24 02:40 Stool Enteric Bacteriology - Final 08/03/24 20:20 Mucosa - Nasopharyngeal Respiratory Panel (PCR) - Final 08/03/24 12:51 Urine, Clean Catch Legionella Antigen - Final 08/03/24 12:51 Urine, Clean Catch Streptococcus pneumoniae Antigen (M - Final 08/03/24 11:55 Mucosa - Nose SARS-CoV-2, Influenza & RSV (PCR) - Final Physical Exam Const alert, oriented x3, no apparent distress and average body habitus General Appearance: cooperative, well kempt and well developed Orientation / Consciousness: awake, oriented to person, oriented to place and oriented to time HEENT normocephalic, head/scalp atraumatic and moist oral mucous membranes Eyes PERRL, EOMs intact bilaterally and conjunctivae normal Neck supple, no JVD, thyroid normal and no carotid bruits General: trachea midline Resp normal respiratory effort, no retractions, no use of accessory muscles and clear to auscultation bilaterally Auscultation: Negative for rales, rhonchi or wheezes Cardio regular rate, regular rhythm, S1 normal heart sound, S2 normal heart sound, no murmurs, no rub and no gallops GI normal to inspection, nondistended, normoactive bowel sounds, soft to palpation, non-tender and non-distended Extremity no clubbing, cyanosis or edema Skin no rashes or lesions noted General Skin Exam: no breakdown Neuro oriented x3, CN's II-XII intact bilaterally, no focal motor deficits and no sensory deficits noted Sensorium / Orientation: awake and alert Speech: speech normal Psych affect normal Assessment & Plan Assessment/Plan (1) Hypoxia: PLAN: Plan 1. Hypoxia-etiology unclear, resolved at this time, pulse ox will be monitored #2 acute cystitis-patient will remain on cefepime at this time #3 acute debility-patient is being seen by PT and OT, patient feels she will need short-term placement in a group home facility due to acute debility. #4 type 2 diabetes-blood sugars will be monitored, sliding scale insulin will be administered as needed #5 chronic depression-patient is on Cymbalta Total clinical time spent by myself addressing the patient's medical issues, reviewing all of her data, and collaborating with patient's care team: 35 minutes Charges/Coding Visit Charges Inpatient E&M: 14518 Subs Hosp L2
[2024-08-04] MEDS: Albuterol 2.5 MG/3 ML VIAL.NEB. INHALATION (19:26)
[2024-08-04] MEDS: MENTHOL 226.8 GM JAR 1 APPLIC TOPICAL (21:59)
[2024-08-04] MEDS: DiphenhydrAMINE 25 MG Capsule PO (22:02)
[2024-08-04 23:17] LABS: Bedside Glucose 282 mg/dL (74-106)
[2024-08-05 02:23] VITALS: BP 167/79; PULSE 95; RESP 17; TEMP 36.8; O2SAT 99
[2024-08-05 06:00] VITALS: BMI 29.0
[2024-08-05] MEDS: Insulin Lispro 100 UNIT/ML INSULN.PEN SC ×4 (06:45→22:45)
[2024-08-05 06:59] LABS: Bedside Glucose 332 mg/dL (74-106)
[2024-08-05 07:08] VITALS: PULSE 92; RESP 18; O2SAT 95
[2024-08-05] MEDS: Albuterol 2.5 MG/3 ML VIAL.NEB. INHALATION ×2 (07:08→19:31)
[2024-08-05] MEDS: Budesonide Respules 0.5 MG/2 ML AMPUL.NEB. INHALATION ×2 (07:08→19:31)
[2024-08-05 09:21] VITALS: BP 174/80; PULSE 98; RESP 16; TEMP 36.8; O2SAT 98
[2024-08-05] MEDS: guaiFENesin 1,200 MG Tablet 1200 MG PO ×2 (09:52→22:48)
[2024-08-05] MEDS: Enoxaparin 40 MG/0.4 ML Syringe SC (09:52)
[2024-08-05] MEDS: Cefepime HCl 2 GM in 0.9% Normal Saline (100mL MB+) 100 ML IV ×2 (09:52→22:48)
[2024-08-05 12:02] LABS: Bedside Glucose 439 mg/dL (74-106)
[2024-08-05] MEDS: Insulin Lispro 100 UNIT/ML INSULN.PEN 15 UNIT SC (12:02)
[2024-08-05] MEDS: Insulin Glargine-YFGN 100 UNIT/ML Pen 20 UNIT SC ×2 (13:04→22:47)
[2024-08-05] MEDS: 0.9% Saline Lock 10 ML Syringe IV ×2 (13:12→22:48)
[2024-08-05] MEDS: Ondansetron 4 MG/2 ML Vial IV (13:12)
[2024-08-05 13:41] LABS: Hemoglobin A1c 7.2 % (3.8-5.6)
[2024-08-05 14:34] VITALS: BP 155/86; PULSE 98; RESP 16; TEMP 36.6; O2SAT 98
[2024-08-05 14:50] LABS: Mucous, Urine 0 SEEN /hpf (<or=2+)
[2024-08-05 14:58] LABS: Color, Urine Yellow (Yellow); Glucose, Dipstick 1000 mg/dl (Normal); Ketone-Dipstick 5 mg/dl (Negative); Leukocyte Esterase-Dipstick 500 /ul (Negative); Nitrite-Dipstick Negative (Negative); Occult Blood-Urine 25 /ul (Negative); Protein-Dipstick 30 mg/dl (Negative); Urine Bilirubin Dipstick Negative (Negative); Urine Clarity Turbid (Clear); Urine Urobilinogen Normal (Normal)
[2024-08-05 15:11] LABS: Squamous Epithelial Cells - UA 0-5 SEEN /hpf (5-10)
[2024-08-05 15:12] LABS: White Blood Cells >100 SEEN /hpf (0-5)
[2024-08-05 15:13] LABS: Bacteria 1+ /hpf (None Seen); Red Blood Cells-Urine 0-5 SEEN /hpf (0-5); Yeast-Urine 2+ /hpf (None Seen)
[2024-08-05] MEDS: Insulin Lispro 100 UNIT/ML INSULN.PEN 10 UNIT SC (16:37)
[2024-08-05 16:52] LABS: Bedside Glucose 267 mg/dL (74-106)
--- NOTE | 2024-08-05 17:20 | PCM.PN.HOSP ---
Reason for Visit Reason for Visit: Diagnoses Hypoxemia (08/03/24) Subjective Subjective Patient was seen and examined today, it appears the TCU will have a bed for tomorrow, Dr. Pastor requested a hemoglobin A1c and a UA on the patient, UA was obtained through straight cath and indicated that the patient had bacteria and white cells in her urine. Patient has been on cefepime however since her admission. Patient does not have any urinary symptomology at this time. Urine culture was not obtained when the patient was admitted to the hospital. Objective Data Objective Data Vital Signs: Vital Signs Temp Pulse Resp BP Pulse Ox O2 Del Method 97.8 F 98 16 155/86 H 98 Room Air 08/05/24 14:34 08/05/24 14:34 08/05/24 14:34 08/05/24 14:34 08/05/24 14:34 08/05/24 14:34 Oxygen Delivery Method Room Air Weight: 71.7 kg Body Mass Index (BMI) 29.0 Intake & Output: Intake and Output for Last 24 Hours 08/03/24 08/04/24 08/05/24 23:59 23:59 23:59 Intake Total 400 / 400 1931.67 / 1931.67 340 / 340 Balance 400 / 400 1931.67 / 1931.67 340 / 340 Lab / Micro Data 08/04/24 06:10 08/04/24 06:10 Labs: Laboratory Results - last 24 hr 08/04/24 21:55: POC Glucose 282 H 08/05/24 06:10: Hemoglobin A1c 7.2 H 08/05/24 06:12: POC Glucose 332 H 08/05/24 11:34: POC Glucose 439 H 08/05/24 14:43: Urine Color Yellow, Urine Clarity Turbid, Urine pH 5.0, Ur Specific [place] 1.020, Urine Protein 30 H, Urine Glucose (UA) 1000 H, Urine Ketones 5 H, Urine Occult Blood 25 H, Urine Nitrite Negative, Urine Bilirubin Negative, Urine Urobilinogen Normal, Ur Leukocyte Esterase 500 H, Urine RBC 0-5 SEEN, Urine WBC >100 SEEN, Ur Squamous Epith Cells 0-5 SEEN, Urine Bacteria 1+, Urine Mucus 0 SEEN, Urine Yeast 2+ 08/05/24 16:29: POC Glucose 267 H Micro: Microbiology 08/04/24 02:40 Stool Enteric Bacteriology - Final 08/03/24 20:20 Mucosa - Nasopharyngeal Respiratory Panel (PCR) - Final 08/03/24 12:51 Urine, Clean Catch Legionella Antigen - Final 08/03/24 12:51 Urine, Clean Catch Streptococcus pneumoniae Antigen (M - Final 08/03/24 11:55 Mucosa - Nose SARS-CoV-2, Influenza & RSV (PCR) - Final Physical Exam Narrative alert, oriented x3, no apparent distress and average body habitus General Appearance: cooperative, well kempt and well developed Orientation / Consciousness: awake, oriented to person, oriented to place and oriented to time HEENT normocephalic, head/scalp atraumatic and moist oral mucous membranes Eyes PERRL, EOMs intact bilaterally and conjunctivae normal Neck supple, no JVD, thyroid normal and no carotid bruits General: trachea midline Resp normal respiratory effort, no retractions, no use of accessory muscles and clear to auscultation bilaterally Auscultation: Negative for rales, rhonchi or wheezes Cardio regular rate, regular rhythm, S1 normal heart sound, S2 normal heart sound, no murmurs, no rub and no gallops GI normal to inspection, nondistended, normoactive bowel sounds, soft to palpation, non-tender and non-distended Extremity no clubbing, cyanosis or edema Skin no rashes or lesions noted General Skin Exam: no breakdown Neuro oriented x3, CN's II-XII intact bilaterally, no focal motor deficits and no sensory deficits noted Sensorium / Orientation: awake and alert Speech: speech normal Psych affect normal Assessment & Plan Assessment/Plan (1) Debility: (2) Hypoxia: PLAN: Plan 1. Tjlidjp-erxlychk-sdzgizuh unclear, patient is currently on room air #2 acute cystitis-patient will remain on cefepime at this time #3 acute debility-patient is being seen by PT and OT, if patient remains stable tomorrow she will be transferred to assisted facility #4 type 2 diabetes-blood sugars will be monitored, sliding scale insulin will be administered as needed #5 chronic depression-patient is on Cymbalta Total clinical time spent by myself addressing the patient's medical issues, reviewing all of her data, and collaborating with patient's care team: 35 minutes Charges/Coding Visit Charges Inpatient E&M: 35481 Subs Hosp L2
[2024-08-05 19:38] VITALS: PULSE 91; RESP 16; O2SAT 94
[2024-08-05 22:35] VITALS: BP 152/71; PULSE 97; RESP 18; TEMP 36.9; O2SAT 97
[2024-08-05] MEDS: MENTHOL 226.8 GM JAR 1 APPLIC TOPICAL (22:48)
[2024-08-05] MEDS: Acetaminophen 325 MG Tablet 650 MG PO (22:53)
[2024-08-05] MEDS: DiphenhydrAMINE 25 MG Capsule PO (22:53)
[2024-08-05 23:19] LABS: Bedside Glucose 255 mg/dL (74-106)
[2024-08-06] VITALS (7 sets, daily range): BP systolic 147–174; BP diastolic 66–90; PULSE 89–98; RESP 16–20; TEMP 36.5–37.2; O2SAT 93–98; BMI 28.2
[2024-08-06] MEDS: Insulin Lispro 100 UNIT/ML INSULN.PEN SC ×4 (06:38→21:24)
[2024-08-06] MEDS: Insulin Lispro 100 UNIT/ML INSULN.PEN 10 UNIT SC ×3 (06:38→15:38)
[2024-08-06 06:57] LABS: Bedside Glucose 277 mg/dL (74-106)
[2024-08-06] MEDS: Enoxaparin 40 MG/0.4 ML Syringe SC (08:10)
[2024-08-06] MEDS: guaiFENesin 1,200 MG Tablet 1200 MG PO ×2 (08:11→21:25)
[2024-08-06] MEDS: Cefepime HCl 2 GM in 0.9% Normal Saline (100mL MB+) 100 ML IV ×2 (09:43→21:40)
[2024-08-06] MEDS: 0.9% Saline Lock 10 ML Syringe IV ×2 (09:43→22:28)
[2024-08-06] MEDS: Insulin Glargine-YFGN 100 UNIT/ML Pen 20 UNIT SC ×2 (09:43→21:25)
--- NOTE | 2024-08-06 10:31 | TREXTCAR_ITS ---
Diet Diet Order/Speech Therapy: 08/03/24 17:09 Diet: Consistent Carb - Calorie Controlled Food consistency:: Regular Liquid Consistency:: Regular/Thin How many daily calories?: 1800 calorie Routine Orders/Code Status Code Status: Full Code DC O2, CPAP, BIPAP needs RN Home O2 Qualification: Home O2 Qualification: Is the patient on home oxygen No 08/04/24 14:26 Home O2 Qualification: AT REST 1- Pulse Ox at rest 96 08/04/24 14:26 Home O2 Qualification: WITH AMBULATION 1- Pulse Ox with ambulation 91 08/04/24 14:26 1- Oxygen Flow Rate with 0 08/04/24 14:26 ambulation Home O2 Discharge instructions: No Therapies Weight Bearing: Full weight bearing Physical Therapy: Eval and Treat Occupational Therapy: Eval and Treat Problem/Diagnosis (1) Debility: Status: Acute Code(s): R53.81 - Other malaise (2) Hypoxia: Status: Acute Code(s): R09.02 - Hypoxemia Plan 1. Ikomidk-cpaogslk-samgmwod unclear, patient is currently on room air #2 acute cystitis-patient will remain on cefepime at this time #3 acute debility-patient is being seen by PT and OT, if patient remains stable tomorrow she will be transferred to [facility] facility #4 type 2 diabetes-blood sugars will be monitored, sliding scale insulin will be administered as needed #5 chronic depression-patient is on Cymbalta Total clinical time spent by myself addressing the patient's medical issues, reviewing all of her data, and collaborating with patient's care team: 35 minutes Allergies/Procedures Done in Hospital Allergies adhesive tape Allergy (Verified 08/03/24 11:06) Hives/Rash ciprofloxacin (From Cipro) Allergy (Verified 08/03/24 11:06) Photosensitivity & dermatitis pioglitazone (From Actos) Allergy (Verified 08/03/24 11:06) Unknown codeine Adverse Reaction (Verified 08/03/24 11:06) Upset Stomach ibandronate sodium (From Boniva) Adverse Reaction (Verified 08/03/24 11:06) GI upset/esophageal burning ibuprofen Adverse Reaction (Verified 08/03/24 11:06) GI upset lansoprazole Adverse Reaction (Verified 08/03/24 11:06) Diarrhea metformin Adverse Reaction (Verified 08/03/24 11:06) Diarrhea miconazole (From Neosporin AF) Adverse Reaction (Verified 08/03/24 11:06) Rash/Blisters nabumetone (From Relafen) Adverse Reaction (Verified 08/03/24 11:06) GI upset pantoprazole (From Protonix) Adverse Reaction (Verified 08/03/24 11:06) Diarrhea sucralfate (From Carafate) Adverse Reaction (Verified 08/03/24 11:06) feels poorly Procedures: None Type of Care/Length of Stay Estimated LOS: Convalescent Care Less Than 30 days Type of Care Needed: Skilled Rehab Potential: Good Prognosis: Good Additional Orders/Day of Discharge H&P will serve as current which was dated: 08/03/24 Day of Discharge: 08/06/24 Dietary and Speech Recommendations Dietitian Recommendations/Changes: Continue to follow and monitor for changes in pt nutritional status and need for additional rec/provide diet education if indicated by pt. Discharge Plan Admission Admit Date/Time: 08/03/24 15:43 Primary Reason for Your Visit: Hypoxia, urinary tract infection Attending Provider: Christian Hollingsworth Primary Care Provider: Emily Yun Consulting Providers: Kat Sprague Discharge Orders/Prescriptions Prescriptions: New insulin lispro [Humalog KwikPen Insulin] 100 unit/mL Insulin Pen 15 unit subcut TIDAC Qty: 15 0RF insulin glargine-yfgn 100 unit/mL (3 mL) Insulin Pen 20 unit subcut BID Qty: 15 0RF insulin lispro [Humalog KwikPen Insulin] 100 unit/mL Insulin Pen See Protocol subcut ACHS Qty: 0 0RF Protocol: 3. Sliding Scale Insulin Med Dosing Condition: 150-189 mg/dl = 1 unit Condition: 190-229 mg/dl = 2 units Condition: 230-269 mg/dl = 3 units Condition: 270-309 mg/dl = 4 units Condition: 310-349 mg/dl = 5 units Condition: 350-399 mg/dl = 6 units Condition: 400-449 mg/dl = 7 units Condition: Greater than 449 call physician Protocol Text: - Use for Total Daily Dose of Insulin 37-55 units - Obsese, infected, or steroid patients MEDIUM DOSING ALGORITHIM menthol [Blue Gel] 2 % Gel 1 applic topical TID PRN PRN (Reason: Pain 1-10/Inflammation) Qty: 0 0RF metoprolol succinate 100 mg tablet extended release 24 hr 100 mg PO DAILY Qty: 1 0RF Rx Instructions: start on 08/06/24 Continued fesoterodine [Toviaz] 4 mg tablet extended release 24 hr 8 mg PO DAILY albuterol sulfate 90 mcg/actuation HFA aerosol inhaler 2 puff inhalation Q6H PRN (Reason: shortness of breath or wheezing) Qty: 6.7 3RF duloxetine 60 mg capsule,delayed release(DR/EC) 60 mg PO QHS Qty: 90 2RF atorvastatin 20 mg tablet 20 mg PO QDAY cholecalciferol (vitamin D3) 1,000 UNIT tablet 1,000 unit PO DAILY esomeprazole magnesium 40 MG capsule,delayed release(DR/EC) 40 mg PO DAILY aspirin 81 MG tablet,chewable 81 mg PO DAILY@0800 Qty: 30 0RF gabapentin 300 mg Capsule 300 mg PO BID 30 Days Qty: 60 0RF Lactobacillus acidophilus 500 million cell capsule 500,000,000 cell PO DAILY furosemide 20 mg tablet 20 mg PO DAILY PRN (Reason: edema) insulin glargine-yfgn [Semglee(insulin glarg-yfgn)Pen] 100 unit/mL (3 mL) insulin pen 22 unit subcut QHS Cranberry Plus Vitamin C 140-100 mg capsule 1 cap PO TID (DME) pen needle, diabetic [BD Ultra-Fine Micro Pen Needle] 32 gauge x 1/4 needle See Rx Instructions .ROUTE .MEDSUPPLY Qty: 450 1RF Rx Instructions: 4x/day (DME) OneTouch Verio test strips Strip See Rx Instructions .ROUTE .MEDSUPPLY Qty: 100 3RF Rx Instructions: daily Discontinued lorazepam 1 mg tablet 1 mg PO DAILY PRN (Reason: anxiety) metoprolol succinate 200 MG tablet extended release 24 hr 200 mg PO DAILY cephalexin 250 mg capsule 250 mg PO QHS Gemtesa 75 mg tablet 75 mg PO DAILY insulin aspart U-100 [Novolog FlexPen U-100 Insulin] 100 unit/mL (3 mL) insulin pen 25 unit subcut LUNCH Rx Instructions: BREAKFAST- 55-60 UNITS, LUNCH- 25 UNITS, DINNER- 38 UNITS insulin aspart U-100 [Novolog FlexPen U-100 Insulin] 100 unit/mL (3 mL) insulin pen 38 unit subcut DINNER Rx Instructions: BREAKFAST- 55-60 UNITS, LUNCH- 25 UNITS, DINNER- 38 UNITS insulin aspart U-100 [Novolog FlexPen U-100 Insulin] 100 unit/mL (3 mL) insulin pen 60 unit subcut DAILY Rx Instructions: BREAKFAST- 55-60 UNITS, LUNCH- 25 UNITS, DINNER- 38 UNITS Referrals / Follow Up: Emily Yun MD [Primary Care Provider] - Disposition Disposition (needs filled in before D/C Order can be placed): Long Term Facility
--- NOTE | 2024-08-06 10:55 | PCM.DC.SUM ---
Providers Date of Admission: 08/03/24 Date of Discharge: 08/06/24 Primary Care Physician: Dr. Emily Yun MD Reason For Visit: SOB Diagnosis Discharge Diagnosis (1) Debility: Status: Acute Code(s): R53.81 - Other malaise (2) Hypoxia: Status: Resolved Code(s): R09.02 - Hypoxemia Plan 1. Uofprab-jflkdmgz-bktrksgm unclear, patient is currently on room air #2 acute cystitis-patient will remain on cefepime at this time #3 acute debility-patient is being seen by PT and OT, if patient remains stable tomorrow she will be transferred to snf facility #4 type 2 diabetes-blood sugars will be monitored, sliding scale insulin will be administered as needed #5 chronic depression-patient is on Cymbalta Total clinical time spent by myself addressing the patient's medical issues, reviewing all of her data, and collaborating with patient's care team: 35 minutes Medications at Discharge Home Medications cholecalciferol (vitamin D3) 25 mcg (1,000 unit) tablet 1,000 unit PO DAILY supplement 03/13/17 esomeprazole magnesium 40 mg capsule,delayed release 40 mg PO DAILY gerd 01/01/20 aspirin 81 mg chewable tablet 81 mg PO DAILY@0800 heart ##30 01/03/20 fesoterodine 4 mg tablet,extended release 24 hr (Toviaz) 8 mg PO DAILY bladder 10/10/21 pen needle, diabetic 32 gauge x 1/4 (BD Ultra-Fine Micro Pen Needle) #450 ea 12/14/21 blood sugar diagnostic (OneTouch Verio test strips) #100 ea 12/25/22 albuterol sulfate 90 mcg/actuation aerosol inhaler 2 puff inhalation Q6H PRN shortness of breath or wheezing #6.7 grams 03/07/23 gabapentin 300 mg capsule 300 mg PO BID pain 30 days #60 caps 06/20/23 cranberry concentrate-ascorbic acid 140 mg-100 mg capsule (Cranberry Plus Vitamin C) 1 cap PO TID Supplement 02/17/24 duloxetine 60 mg capsule,delayed release 60 mg PO QHS mood #90 caps 05/26/24 atorvastatin 20 mg tablet 20 mg PO QDAY HLD 07/01/24 Lactobacillus acidophilus 500 million cell capsule 500 mmu cells PO DAILY health supplement 07/10/24 furosemide 20 mg tablet 20 mg PO DAILY PRN edema 08/03/24 insulin glargine-yfgn 100 unit/mL (3 mL) subcutaneous pen (Semglee (insulin glargine-yfgn) Pen) 22 unit subcut QHS diabetes mellitus 08/03/24 insulin glargine-yfgn 100 unit/mL (3 mL) subcutaneous pen 20 unit (0.2 mL) subcut BID t2dm #15 mL 08/06/24 insulin lispro 100 unit/mL subcutaneous pen (Humalog KwikPen (U-100) Insulin) 15 unit (0.15 mL) subcut TIDAC T2DM #15 mL 08/06/24 insulin lispro 100 unit/mL subcutaneous pen (Humalog KwikPen (U-100) Insulin) See Protocol subcut ACHS #0 mL 08/06/24 menthol 2 % topical gel (Blue Gel) 1 applic topical TID PRN PRN Pain 1-10/Inflammation #0 grams 08/06/24 metoprolol succinate 100 mg tablet,extended release 24 hr 100 mg PO DAILY HTN #1 TAB 08/06/24 lorazepam 1 mg tablet 1 mg PO DAILY anxiety 08/07/24 metoprolol succinate 200 mg tablet,extended release 24 hr 200 mg PO DAILY HTN 08/07/24 pyridoxine (vitamin B6) 250 mg tablet 250 mg PO DAILY Suplement 08/07/24 rosuvastatin 10 mg tablet 10 mg PO QHS HLD 08/07/24 Hospital Course Operations None Procedures None Summary of Care Provided Minutes Spent on Discharge: 32 Hospital Course: This 84-year-old white female was seen in the emergency room at [facility] with a chief complaint of headache, generalized weakness, cough, and diarrhea. She also complained of some back discomfort. Workup in the emergency room revealed the patient's oxygen saturation to be 96% on room air, with ambulation the patient's oxygen sat dropped to 83%. Patient's white blood cell count was normal, potassium was 3.4, urinalysis showed 10-25 WBCs with +2 urine bacteria. COVID influenza and RSV test were negative. Chest x-ray showed no acute cardiopulmonary findings but there were emphysematous changes in the right upper lobe. CT of the chest showed no acute cardiopulmonary finding and no evidence of pulmonary embolism. Patient was admitted to [facility] 3 for acute hypoxia and debility, her symptoms were felt to be suspicious for acute viral syndrome. IV fluids were administered and she was placed on IV antibiotics for possible urinary tract infection. Supplemental potassium was given. Patient was seen by PT and OT, and she was evaluated for transfer to the rehab unit for inpatient rehab services and was accepted. On 08/07/2024, patient was seen and examined: On examination she appeared in good health and spirits, she does not appear to be in any distress. Vital signs as documented. Skin warm and dry and without overt rashes. Neck without JVD, thyroid appears normal, trachea is midline, neck is supple. Lungs clear, normal air movement was noted. Heart exam notable for regular rhythm, normal sounds and absence of murmurs, rubs or gallops. Abdomen unremarkable and without evidence of organomegaly, masses, or abdominal aortic enlargement, bowel sounds are present in all 4 quadrants, no abdominal tenderness was noted. Extremities nonedematous, no cyanosis was noted, no clubbing was noted. Neuro: Cranial nerves II through XII are grossly intact, no focal motor deficits were noted, sensation to light touch and pinprick is intact, motor exam 5/5 throughout. Psych: Patient is alert and oriented x3, she does not appear anxious or depressed, she does not appear agitated. Patient was felt to be stable for transfer to the rehab unit at [facility] on 08/07/2024. Weight / BMI Weight Weight: 69.8 kg Body Mass Index (BMI) 28.3 ABG / Lab / Microbiology Data 08/04/24 06:10 08/04/24 06:10 Laboratory: Laboratory Results - last 24 hr 08/05/24 06:10: Hemoglobin A1c 7.2 H 08/05/24 11:34: POC Glucose 439 H 08/05/24 14:43: Urine Color Yellow, Urine Clarity Turbid, Urine pH 5.0, Ur Specific [place] 1.020, Urine Protein 30 H, Urine Glucose (UA) 1000 H, Urine Ketones 5 H, Urine Occult Blood 25 H, Urine Nitrite Negative, Urine Bilirubin Negative, Urine Urobilinogen Normal, Ur Leukocyte Esterase 500 H, Urine RBC 0-5 SEEN, Urine WBC >100 SEEN, Ur Squamous Epith Cells 0-5 SEEN, Urine Bacteria 1+, Urine Mucus 0 SEEN, Urine Yeast 2+ 08/05/24 16:29: POC Glucose 267 H 08/05/24 22:45: POC Glucose 255 H 08/06/24 06:36: POC Glucose 277 H Microbiology: Microbiology 08/06/24 10:37 Urine Catheter - Catheter Urine Culture - Final Yeast, not Shanna albicans 08/04/24 02:40 Stool Enteric Bacteriology - Final 08/03/24 20:20 Mucosa - Nasopharyngeal Respiratory Panel (PCR) - Final 08/03/24 12:51 Urine, Clean Catch Legionella Antigen - Final 08/03/24 12:51 Urine, Clean Catch Streptococcus pneumoniae Antigen (M - Final 08/03/24 11:55 Mucosa - Nose SARS-CoV-2, Influenza & RSV (PCR) - Final D/C Instructions DC O2, CPAP, BIPAP Needs RN Home O2 Qualification: Home O2 Qualification: Is the patient on home oxygen No 08/04/24 14:26 Home O2 Qualification: AT REST 1- Pulse Ox at rest 96 08/04/24 14:26 Home O2 Qualification: WITH AMBULATION 1- Pulse Ox with ambulation 91 08/04/24 14:26 1- Oxygen Flow Rate with 0 08/04/24 14:26 ambulation Home O2 Discharge instructions: No Meaningful Use Info Meaningful Use Meaningful Use Diagnoses (Choose all that apply): None applicable Ischemic Stroke Statin Dosing Therapy Reference: STATIN DOSE THERAPY REFERENCE: * Patients > 75 years receive moderate or high dose statin therapy. * Patients 75 years or YOUNGER should receive HIGH intensity statin dose unless contraindicated. You will be required to document reason for non-treatment if statin daily dose does not meet guidelines. HIGH DOSE STATIN THERAPY DAILY Atorvastatin > than or = to 40 mg Rosuvastatin > than or = to 20 mg Amlodipine + Atorvastatin > than or = to 2.5/40 mg Ezetimibe + Simvastatin 10/80 mg Simvastatin 80mg Discharge Plan Admission Admit Date/Time: 08/03/24 15:43 Primary Reason for Your Visit: Hypoxia, urinary tract infection Attending Provider: Christian Hollingsworth Primary Care Provider: Emily Yun Consulting Providers: Kat Sprague Discharge Orders/Prescriptions Prescriptions: New insulin lispro [Humalog KwikPen Insulin] 100 unit/mL Insulin Pen 15 unit subcut TIDAC Qty: 15 0RF insulin glargine-yfgn 100 unit/mL (3 mL) Insulin Pen 20 unit subcut BID Qty: 15 0RF insulin lispro [Humalog KwikPen Insulin] 100 unit/mL Insulin Pen See Protocol subcut ACHS Qty: 0 0RF Protocol: 3. Sliding Scale Insulin Med Dosing Condition: 150-189 mg/dl = 1 unit Condition: 190-229 mg/dl = 2 units Condition: 230-269 mg/dl = 3 units Condition: 270-309 mg/dl = 4 units Condition: 310-349 mg/dl = 5 units Condition: 350-399 mg/dl = 6 units Condition: 400-449 mg/dl = 7 units Condition: Greater than 449 call physician Protocol Text: - Use for Total Daily Dose of Insulin 37-55 units - Obsese, infected, or steroid patients MEDIUM DOSING ALGORITHIM menthol [Blue Gel] 2 % Gel 1 applic topical TID PRN PRN (Reason: Pain 1-10/Inflammation) Qty: 0 0RF metoprolol succinate 100 mg tablet extended release 24 hr 100 mg PO DAILY Qty: 1 0RF Rx Instructions: start on 08/06/24 Continued fesoterodine [Toviaz] 4 mg tablet extended release 24 hr 8 mg PO DAILY albuterol sulfate 90 mcg/actuation HFA aerosol inhaler 2 puff inhalation Q6H PRN (Reason: shortness of breath or wheezing) Qty: 6.7 3RF duloxetine 60 mg capsule,delayed release(DR/EC) 60 mg PO QHS Qty: 90 2RF atorvastatin 20 mg tablet 20 mg PO QDAY cholecalciferol (vitamin D3) 1,000 UNIT tablet 1,000 unit PO DAILY esomeprazole magnesium 40 MG capsule,delayed release(DR/EC) 40 mg PO DAILY aspirin 81 MG tablet,chewable 81 mg PO DAILY@0800 Qty: 30 0RF gabapentin 300 mg Capsule 300 mg PO BID 30 Days Qty: 60 0RF Lactobacillus acidophilus 500 million cell capsule 500 mmu cells PO DAILY furosemide 20 mg tablet 20 mg PO DAILY PRN (Reason: edema) insulin glargine-yfgn [Semglee(insulin glarg-yfgn)Pen] 100 unit/mL (3 mL) insulin pen 22 unit subcut QHS Cranberry Plus Vitamin C 140-100 mg capsule 1 cap PO TID (DME) pen needle, diabetic [BD Ultra-Fine Micro Pen Needle] 32 gauge x 1/4 needle See Rx Instructions .ROUTE .MEDSUPPLY Qty: 450 1RF Rx Instructions: 4x/day (DME) OneTouch Verio test strips Strip See Rx Instructions .ROUTE .MEDSUPPLY Qty: 100 3RF Rx Instructions: daily Discontinued lorazepam 1 mg tablet 1 mg PO DAILY PRN (Reason: anxiety) metoprolol succinate 200 MG tablet extended release 24 hr 200 mg PO DAILY cephalexin 250 mg capsule 250 mg PO QHS Gemtesa 75 mg tablet 75 mg PO DAILY insulin aspart U-100 [Novolog FlexPen U-100 Insulin] 100 unit/mL (3 mL) insulin pen 25 unit subcut LUNCH Rx Instructions: BREAKFAST- 55-60 UNITS, LUNCH- 25 UNITS, DINNER- 38 UNITS insulin aspart U-100 [Novolog FlexPen U-100 Insulin] 100 unit/mL (3 mL) insulin pen 38 unit subcut DINNER Rx Instructions: BREAKFAST- 55-60 UNITS, LUNCH- 25 UNITS, DINNER- 38 UNITS insulin aspart U-100 [Novolog FlexPen U-100 Insulin] 100 unit/mL (3 mL) insulin pen 60 unit subcut DAILY Rx Instructions: BREAKFAST- 55-60 UNITS, LUNCH- 25 UNITS, DINNER- 38 UNITS No Action lorazepam 1 mg tablet 1 mg PO DAILY metoprolol succinate 200 mg tablet extended release 24 hr 200 mg PO DAILY rosuvastatin 10 mg tablet 10 mg PO QHS pyridoxine (vitamin B6) 250 mg tablet 250 mg PO DAILY Referrals / Follow Up: Emily Yun MD [Primary Care Provider] - Disposition Disposition (needs filled in before D/C Order can be placed): [facility] Charges/Coding Visit Charges Inpatient E&M: 49778 Disch Hosp >30min
[2024-08-06 11:22] LABS: Bedside Glucose 252 mg/dL (74-106)
[2024-08-06] MEDS: Albuterol 2.5 MG/3 ML VIAL.NEB. INHALATION (14:02)
[2024-08-06] MEDS: Budesonide Respules 0.5 MG/2 ML AMPUL.NEB. INHALATION ×2 (14:02→19:50)
[2024-08-06] MEDS: MENTHOL 226.8 GM JAR 1 APPLIC TOPICAL ×2 (14:54→21:24)
[2024-08-06 15:58] LABS: Bedside Glucose 204 mg/dL (74-106)
[2024-08-06] MEDS: DiphenhydrAMINE 25 MG Capsule PO (21:24)
[2024-08-06] MEDS: Acetaminophen 325 MG Tablet 650 MG PO (21:24)
[2024-08-06 22:08] LABS: Bedside Glucose 281 mg/dL (74-106)
[2024-08-07 04:05] VITALS: BP 168/70; PULSE 85; RESP 16; TEMP 36.5; O2SAT 97
[2024-08-07 06:00] VITALS: BMI 28.3
[2024-08-07] MEDS: Insulin Lispro 100 UNIT/ML INSULN.PEN SC (06:10)
[2024-08-07] MEDS: Insulin Lispro 100 UNIT/ML INSULN.PEN 10 UNIT SC (06:11)
[2024-08-07 06:30] LABS: Bedside Glucose 234 mg/dL (74-106)
[2024-08-07 07:01] VITALS: PULSE 80; RESP 16
[2024-08-07] MEDS: Budesonide Respules 0.5 MG/2 ML AMPUL.NEB. INHALATION (07:01)
[2024-08-07] MEDS: Insulin Glargine-YFGN 100 UNIT/ML Pen 20 UNIT SC (08:27)
[2024-08-07] MEDS: Enoxaparin 40 MG/0.4 ML Syringe SC (08:27)
[2024-08-07] MEDS: guaiFENesin 1,200 MG Tablet 1200 MG PO (08:28)
[2024-08-07] MEDS: Acetaminophen 325 MG Tablet 650 MG PO (08:36)
[2024-08-07 08:53] VITALS: BP 155/77; PULSE 87; RESP 16; TEMP 36.4; O2SAT 97
--- NOTE | 2024-08-07 13:45 | CASEMGMT ---
Social Work Received update from Kimberly in admissions at [facility]. Patient can be accepted to TCU for skilled level of care. Nursing and physician aware as well. Discharge time to TCU coordinated by nursing staff. Plan: [facility] for skilled level of care, anticipated less than 30 day stay. -RONALD Chan
--- NOTE | 2024-08-07 16:35 | PN.HOSP_ITS ---
Reason for Visit Reason for Visit: Diagnoses Hypoxemia (08/03/24) Other malaise (08/03/24) Subjective Subjective The date of this entry should be 08/06/2024: Patient was stable for discharge today, however, TCU refused to take the patient stating that they did not have authorization to accept her. This was despite Dr. Pastor informing me yesterday that the patient could be transported to the TCU and admitted on . Objective Data Objective Data Vital Signs: Vital Signs Temp Pulse Resp BP Pulse Ox O2 Del Method 97.5 F L 87 16 155/77 H 97 Room Air 08/07/24 08:53 08/07/24 08:53 08/07/24 08:53 08/07/24 08:53 08/07/24 08:53 08/07/24 08:53 Oxygen Delivery Method Room Air Weight: 69.8 kg Body Mass Index (BMI) 28.3 Intake & Output: Intake and Output for Last 24 Hours 08/05/24 08/06/24 08/07/24 23:59 23:59 23:59 Intake Total 440 / 440 800 / 800 Balance 440 / 440 800 / 800 Lab / Micro Data 08/04/24 06:10 08/04/24 06:10 Labs: Laboratory Results - last 24 hr 08/06/24 21:22: POC Glucose 281 H 08/07/24 06:10: POC Glucose 234 H Micro: Microbiology 08/04/24 02:40 Stool Enteric Bacteriology - Final 08/03/24 20:20 Mucosa - Nasopharyngeal Respiratory Panel (PCR) - Final 08/03/24 12:51 Urine, Clean Catch Legionella Antigen - Final 08/03/24 12:51 Urine, Clean Catch Streptococcus pneumoniae Antigen (M - Final 08/03/24 11:55 Mucosa - Nose SARS-CoV-2, Influenza & RSV (PCR) - Final Physical Exam Narrative alert, oriented x3, no apparent distress and average body habitus General Appearance: cooperative, well kempt and well developed Orientation / Consciousness: awake, oriented to person, oriented to place and oriented to time HEENT normocephalic, head/scalp atraumatic and moist oral mucous membranes Eyes PERRL, EOMs intact bilaterally and conjunctivae normal Neck supple, no JVD, thyroid normal and no carotid bruits General: trachea midline Resp normal respiratory effort, no retractions, no use of accessory muscles and clear to auscultation bilaterally Auscultation: Negative for rales, rhonchi or wheezes Cardio regular rate, regular rhythm, S1 normal heart sound, S2 normal heart sound, no murmurs, no rub and no gallops GI normal to inspection, nondistended, normoactive bowel sounds, soft to palpation, non-tender and non-distended Extremity no clubbing, cyanosis or edema Skin no rashes or lesions noted General Skin Exam: no breakdown Neuro oriented x3, CN's II-XII intact bilaterally, no focal motor deficits and no sensory deficits noted Sensorium / Orientation: awake and alert Speech: speech normal Psych affect normal Assessment & Plan Assessment/Plan (1) Cystitis: (2) Debility: (3) Hypoxia: PLAN: Plan 1. [id number] unclear, patient is currently on room air #2 acute cystitis-patient will remain on cefepime at this time #3 acute debility-patient is being seen by PT and OT, if patient remains stable tomorrow she will be transferred to care home facility, again TCU refused to take the patient today. #4 type 2 diabetes-blood sugars will be monitored, sliding scale insulin will be administered as needed #5 chronic depression-patient is on Cymbalta Total clinical time spent by myself addressing the patient's medical issues, reviewing all of her data, and collaborating with patient's care team: 35 minutes Charges/Coding Visit Charges Inpatient E&M: 56706 Subs Hosp L2
== END 2024-08-07 09:59 | DRG 690 ==
LOC: ED 15:32 → MS3 16:22
PROVIDERS: Admitting Provider Family Medicine; Emergency Provider Emergency Medicine; PCP Internal Medicine; Referring Provider Family Medicine; Visit Provider Internal Medicine
DX: N30.00 Acute cystitis without hematuria (principal); R62.7 Adult failure to thrive; E11.22 Type 2 diabetes mellitus with diabetic chronic kidney disease; I12.9 Hypertensive chronic kidney disease with stage 1 through stage 4 chronic kidney disease, or unspecified chronic kidney disease; F32.A Depression, unspecified; Z79.4 Long term (current) use of insulin; E78.5 Hyperlipidemia, unspecified; E87.6 Hypokalemia; K21.9 Gastro-esophageal reflux disease without esophagitis; R41.81 Age-related cognitive decline; N18.2 Chronic kidney disease, stage 2 (mild); F41.9 Anxiety disorder, unspecified; R09.02 Hypoxemia; R53.81 Other malaise; Z90.2 Acquired absence of lung [part of]; Z68.29 Body mass index [BMI] 29.0-29.9, adult; Z79.82 Long term (current) use of aspirin; Z79.84 Long term (current) use of oral hypoglycemic drugs; Z79.899 Other long term (current) drug therapy; Z85.110 Personal history of malignant carcinoid tumor of bronchus and lung; Z86.73 Personal history of transient ischemic attack (TIA), and cerebral infarction without residual deficits
CPT/HCPCS: 36415; 70450; 71045; 71275; 80053; 81001; 82962; 83036; 83690; 83735; 83880; 84145; 84484; 85025; 85027; 87086; 87088; 87449; 87506; 87631; 87633; 93005; 94640; 94668; 97162; 97166; 97530; 97535; 99285; Q9967; A4216; J2405

== ENCOUNTER 2024-08-07 10:06 | Inpatient (IN) | payer MEDICARE, OTHER, SELFPAY ==
--- NOTE | 2024-08-07 10:26 | HP.PCM_ITS ---
[facility] - General General Date of Admission: 08/07/24 Date of Service: 08/07/24 Chief Complaint: Debility HPI Narrative CHRISTINA IVORY, is a 84-year-old F with a past medical history of chronic kidney, history of CVA, hypertension, hyperlipidemia, chronic migraines, anxiety/depression, GERD, diabetes mellitus on insulin, history of MRSA infection, history of C. 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 on 08/03/2024 with complaint of cough, shortness of breath and back discomfort for 72 hours. She was afebrile in the emergency department and was 96% on room air. White blood cell count was 9.3 and hemoglobin was 13.1. Potassium was mildly decreased at 3.4. BNP was 51.8 and the troponin was 35. A UA showed 10-25 WBCs with 2+ bacteria. COVID antigen was negative. CT of the brain showed no acute findings. CTA of the chest showed no acute cardiopulmonary finding and no e vidence of pulmonary embolism. Lungs were mildly diminished in the bases but otherwise clear to auscultation. She was admitted to the hospital for failure to thrive and possible UTI. Urine was a clean-catch not a straight cath and no urine culture was done. She was ordered meropenem twice daily and received 8 doses prior to transfer to TCU. Respiratory panel, enteric pathogen panel, urine Legionella antigen and streptococcal antigen are all negative. A straight cath was done on 08/05/2024 and showed greater than 100 WBCs per high-power field. Urine culture is currently pending. She was not sent to TCU on an antibiotic. She was transferred to the transitional care unit at [facility] on 08/07/2024 for strengthening/rehabilitation prior to returning home. Blood sugars are not controlled at the time of transfer to transitional care. Blood sugars on 08/06/2024 ranged from 204 to 281. The fasting on 08/07/2024 is 234. [facility] Medical History (Updated 08/07/24 @ 14:[address] Nikky Pastor, ) Chronic prescription benzodiazepine use Acute ischemic stroke Diabetes mellitus with hyperglycemia, with long-term current use of insulin Wears glasses MRSA infection History of Clostridium difficile infection Cancer Thyroid disease Achilles tendinitis Insulin dependent diabetes mellitus Walker as ambulation aid Arthritis Bladder disease Easy bruising Injury of back Back pain Unsteady gait Dietary restriction History of hiatal hernia Gastric reflux Non-smoker Chronic cough Hoarseness Shortness of breath on exertion Leg cramps History of edema History of echocardiogram History of stress test Left lumbar radiculopathy Fatigue Overweight (BMI 25.0-29.9) Migraine without aura, not intractable, without status migrainosus 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 disease History of ischemic stroke Macular degeneration 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 Acute gastritis Enlargement of lymph nodes Migraine Restless legs Depression Anxiety GERD (gastroesophageal reflux disease) Accelerated essential hypertension Essential (primary) hypertension Acute chest pain Home Medications ?Medication ?Instructions ?Recorded ?Last Taken ?Type cholecalciferol (vitamin D3) 25 1,000 unit PO DAILY supplement 03/13/17 06/13/23 History mcg (1,000 unit) tablet esomeprazole magnesium 40 mg 40 mg PO DAILY gerd 01/01/20 06/13/23 History capsule,delayed release aspirin 81 mg chewable tablet 81 mg PO DAILY@0800 heart ##30 01/03/20 05/28/24 Rx fesoterodine 4 mg tablet,extended 8 mg PO DAILY bladder 10/10/21 Unknown History release 24 hr (Toviaz) pen needle, diabetic 32 gauge x #450 ea 12/14/21 Unknown Rx 1/4 (BD Ultra-Fine Micro Pen Needle) blood sugar diagnostic (OneTouch #100 ea 12/25/22 Unknown Rx Verio test strips) albuterol sulfate 90 mcg/actuation 2 puff inhalation Q6H PRN 03/07/23 Unknown Rx aerosol inhaler shortness of breath or wheezing #6.7 grams gabapentin 300 mg capsule 300 mg PO BID pain 30 days #60 caps 06/20/23 Unknown Rx cranberry concentrate-ascorbic 1 cap PO TID Supplement 02/17/24 Unknown History acid 140 mg-100 mg capsule (Cranberry Plus Vitamin C) duloxetine 60 mg capsule,delayed 60 mg PO QHS mood #90 caps 05/26/24 Unknown Rx release atorvastatin 20 mg tablet 20 mg PO QDAY HLD 07/01/24 Unknown History Lactobacillus acidophilus 500 500 mmu cells PO DAILY health 07/10/24 Unknown History million cell capsule supplement furosemide 20 mg tablet 20 mg PO DAILY PRN edema 08/03/24 08/02/24 History insulin glargine-yfgn 100 unit/mL 22 unit subcut QHS diabetes 08/03/24 Unknown History (3 mL) subcutaneous pen (Semglee mellitus (insulin glargine-yfgn) Pen) insulin glargine-yfgn 100 unit/mL 20 unit (0.2 mL) subcut BID t2dm 08/06/24 08/07/24 Rx (3 mL) subcutaneous pen #15 mL insulin lispro 100 unit/mL 15 unit (0.15 mL) subcut TIDAC 08/06/24 Unknown Rx subcutaneous pen (Humalog KwikPen T2DM #15 mL (U-100) Insulin) insulin lispro 100 unit/mL See Protocol subcut ACHS #0 mL 08/06/24 Unknown Rx subcutaneous pen (Humalog KwikPen (U-100) Insulin) menthol 2 % topical gel (Blue Gel) 1 applic topical TID PRN PRN Pain 08/06/24 Unknown Rx 1-10/Inflammation #0 grams metoprolol succinate 100 mg 100 mg PO DAILY HTN #1 TAB 08/06/24 Unknown Rx tablet,extended release 24 hr lorazepam 1 mg tablet 1 mg PO DAILY anxiety 08/07/24 Unknown History metoprolol succinate 200 mg 200 mg PO DAILY HTN 08/07/24 Unknown History tablet,extended release 24 hr pyridoxine (vitamin B6) 250 mg 250 mg PO DAILY Suplement 08/07/24 Unknown History tablet rosuvastatin 10 mg tablet 10 mg PO QHS HLD 08/07/24 Unknown History Allergy/AdvReac Type Severity Reaction Status Date / Time adhesive tape Allergy Hives/Rash Verified 08/03/24 11:06 ciprofloxacin (From Cipro) Allergy Photosensitivity Verified 08/03/24 11:06 & dermatitis pioglitazone (From Actos) Allergy Unknown Verified 08/03/24 11:06 codeine AdvReac Upset Verified 08/03/24 11:06 Stomach ibandronate sodium (From AdvReac GI Verified 08/03/24 11:06 Boniva) upset/esophageal burning ibuprofen AdvReac GI upset Verified 08/03/24 11:06 lansoprazole AdvReac Diarrhea Verified 08/03/24 11:06 metformin AdvReac Diarrhea Verified 08/03/24 11:06 miconazole (From Neosporin AdvReac Rash/Bliste Verified 08/03/24 11:06 AF) rs nabumetone (From Relafen) AdvReac GI upset Verified 08/03/24 11:06 pantoprazole (From Protonix) AdvReac Diarrhea Verified 08/03/24 11:06 sucralfate (From Carafate) AdvReac feels Verified 08/03/24 11:06 poorly Family History Father Lung cancer Colon cancer Mother Mesothelioma Hypertension Grandmother Heart disease Surgical History Hx of colonoscopy Hx of right cataract extraction Hx of left cataract extraction History of lobectomy of lung History of lung biopsy H/O endoscopy Spinal injections S/P rotator cuff repair Social History household members: spouse housing: house pets and animals: No Smoking Status: Never smoker second hand exposure: No alcohol intake: current alcohol intake frequency: holidays/special occasions only substance use type: does not use ROS ROS Narrative Not sure how reliable review of systems is. She is confused and is having trouble focusing. Frequently answers the question that I am not asking. Review of Systems ROS Unobtainable: due to mental status and other Details: Confused.......family states the confusion is worse past 2 days. Constitutional Constitutional: Reports anorexia, chills, fatigue, night sweats, poor appetite and other Details: Tells me her appetite has been poor however she has been eating 50 to 100% of her meals. Weight has decreased 9 to 11 pounds in the past month. ; Denies change in weight, fever(s) or weakness Eyes Eyes: Denies blurry vision, change in vision, eye pain or loss of vision ENT HEENT: Denies abnormal hearing, dysphagia, headache(s), hearing loss, nasal congestion or sore throat Cardiovascular Cardiovascular: Reports dyspnea on exertion, easily tiring during activity and edema; Denies chest pain, lightheadedness, orthopnea, palpitations, paroxysmal nocturnal dyspnea or syncope Respiratory/Chest Respiratory/Chest: Reports dyspnea and shortness of breath with exertion; Denies cough, shortness of breath at rest or wheezing Gastrointestinal Gastrointestinal: Reports abdominal pain; Denies constipation, diarrhea, dyspepsia, hematemesis, hematochezia, nausea or vomiting Genitourinary Genitourinary: Denies dysuria, hematuria, nocturia, urinary frequency, urinary hesitancy, urinary incontinence or urinary urgency Musculoskeletal Musculoskeletal: Reports back pain and neck pain; Denies joint pain or joint swelling Neurologic Neurologic: Reports confusion and memory loss; Denies disequilibrium, dizziness, focal weakness, frequent falls, headache(s), paresthesias, radicular pain, seizures or tremor(s) Psychiatric Psychiatric: Reports cognitive impairment and memory loss; Denies anxiety, depression, homicidal ideation or suicidal ideation Endocrine Endocrinology: Denies change in body appearance, polydipsia or polyuria Hematologic/Lymphatic Hematologic/Lymphatic: Reports easy bleeding and easy bruising; Denies lymphadenopathy Allergic/Immunologic Allergic/Immunologic: Denies rhinitis, eczemia or asthma Physical Exam Const alert Constitutional Narrative: Confused. Family states this seems to have gotten worse the past 2 days. Keeps referring to Josr when I ask her a question. Does not appear to be in any distress. Having a difficult time with focusing and staying on topic. Mucous membranes are dry. General Appearance: cooperative HEENT head/scalp atraumatic Eyes PERRL, EOMs intact bilaterally, conjunctivae normal and no scleral icterus Eyes Narrative: No discharge from the eyes and no mattering of the eyelashes. General Eye: normal appearance of both eyes Neck supple, no JVD and no carotid bruits Chest Chest: symmetrical chest wall rise Resp normal respiratory effort, normal air movement and percussion normal Effort and Inspection: able to speak in complete sentences Cardio regular rate, regular rhythm, S1 normal heart sound, S2 normal heart sound, no murmurs, no rub and no gallops Cardio Narrative: No ectopy GI GI Narrative: Mild abdominal distention with increased tympany, especially in the upper abdomen. Complains of diffuse tenderness with palpation however she does not guard. Bowel sounds are present in all 4 quadrants and they are not hyperactive. She denies diarrhea and tells me her stool is soft but formed. no CVA tenderness Extremity no calf tenderness Extremity Narrative: She has varicosities of the lower extremities and has no edema at this time but does have edema at home. She does not have compression stockings on. She uses as needed Lasix at home. Skin no jaundice Rashes: no rashes Neuro CN's II-XII intact bilaterally, moves all extremities and no focal motor deficits Neuro Narrative: Confused. Pupils are equal round and reactive to light and accommodation. No visual field cuts. No facial asymmetry. Able to follow commands. Psych cooperative Attitude: calm and engaged Activity / Motor Behavior: appropriate eye contact Assessment & Plan Assessment/Plan (1) Debility: (2) Encephalopathy acute: PLAN: Chronically has mild cognitive impairment which has been exacerbated by infection. (3) Cystitis: PLAN: Urine culture is pending. (4) Diabetes 1.5, managed as type 1: PLAN: Recent hemoglobin A1c is 7.2 which is adequate control in this 84-year-old female. 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 (11) Depression: QUALIFIERS: Depression Type: unspecified Qualified Code(s): F32.A - Depression, unspecified (12) Essential (primary) hypertension: PLAN: Plan PLAN PT for gait stability OT for ADL's Analgesics as needed Bowel protocol Fall precautions Assess for Anxiety/Depression GI prophylaxis -continue pantoprazole 40 mg daily. DVT prophylaxis with Lovenox 40 mg subcu daily Follow up with PCP following DC from [facility] AM lab including CMP, CBC, Mag and Phos -all lab drawn yesterday was personally reviewed. 500 mg of p.o. Levaquin today and await the results of the urine culture. Culture was not set up until 08/06/2024 so it may take another day or 2. Accu-Cheks before meals and at bedtime. Continue sliding scale insulin coverage 3 times daily AC. Change the sliding scale to medium/high-dose coverage. Adjust insulin daily to get the blood sugars consistently less than 180. Continue carb consistent calorie controlled diet Encouraged her to increase her fluid intake Answered all the patient and her family's questions. Charges/Coding Visit Charges Inpatient E&M: 09689 SNF Init L2
[2024-08-07 10:28] VITALS: BP 170/69; PULSE 100; RESP 18; TEMP 36.2; O2SAT 98; BMI 28.0
[2024-08-07 12:01] LABS: Bedside Glucose 248 mg/dL (74-106)
[2024-08-07] MEDS: Insulin Lispro 100 UNIT/ML INSULN.PEN 15 UNIT SC ×2 (12:35→17:54)
[2024-08-07] MEDS: Insulin Lispro 100 UNIT/ML INSULN.PEN SC ×2 (12:38→17:52)
[2024-08-07] MEDS: levoFLOXacin 500 MG Tablet PO (13:42)
[2024-08-07 15:04] VITALS: PULSE 77; RESP 16; O2SAT 97
[2024-08-07 17:48] LABS: Bedside Glucose 207 mg/dL (74-106)
[2024-08-07 21:42] LABS: Bedside Glucose 163 mg/dL (74-106)
[2024-08-07] MEDS: Gabapentin 300 MG Capsule PO (22:36)
[2024-08-07] MEDS: MENTHOL 226.8 GM JAR 1 APPLIC TOPICAL (22:36)
[2024-08-07] MEDS: DULoxetine Hcl 60 MG Capsule PO (22:36)
[2024-08-07] MEDS: Insulin Glargine-YFGN 100 UNIT/ML Pen 20 UNIT SC (22:37)
[2024-08-07] MEDS: Atorvastatin Calcium 20 MG Tablet PO (22:39)
[2024-08-08 04:19] LABS: Bedside Glucose 229 mg/dL (74-106)
[2024-08-08 06:05] LABS: Absolute Neutrophil Count 4.8 X10^3/uL (2.0-7.7); Basophil# 0.04 X10^3/uL; Basophil% 0.6 % (0-1); Eosinophil# 0.37 X10^3/uL; Eosinophils% 5.1 % (0-5); Hematocrit 38.3 % (37-47); Hemoglobin 12.8 g/dL (12.0-15.0); Mean Corp Hgb Conc 33.4 g/dL (32-36); Mean Corpuscular Hgb 31.6 pg (27.0-32.0); Mean Corpuscular Volume 94.6 fL (81-99); Mean Platelet Vol. 9.6 fl (6.2-12.0); Monocyte# 0.73 X10^3/uL; Monocyte% 10.1 % (0-10); NRBC Flagged by Analyzer 0 % (0-5); Neutrophil # 4.76 X10^3/uL (2.7-7.7); Neutrophil % 65.9 % (47-70); Platelet Count 253 K/mm3 (150-450); RBC Distribution Width CV 13.4 % (11.6-14.6); RBC Distribution Width SD 46.2 fl (35.1-43.9); Red Blood Count 4.05 M/mm3 (4.2-5.4); White Blood Count 7.2 K/mm3 (4.4-11.0)
[2024-08-08 06:42] LABS: Anion Gap 5 (5-15); BUN 18 mg/dL (7-18); BUN/Creat Ratio 24.6 RATIO (10-20); Calcium,Total 9.5 mg/dL (8.5-10.1); Chloride 106 mmol/L (98-107); Creatinine, Serum 0.73 mg/dL (0.55-1.02); EST Glomerular Filtration Rate 81 mL/min (>60); Est Glom Filt Rate - Afr Amer 98 mL/min (>60); Estimated Creatinine Clearance 49.55 ml/min; Glucose 250 mg/dL (74-106); Potassium 4.1 mmol/L (3.5-5.1); Sodium Level 135 mmol/L (136-145)
[2024-08-08 06:56] LABS: Bedside Glucose 233 mg/dL (74-106)
[2024-08-08] MEDS: Insulin Lispro 100 UNIT/ML INSULN.PEN 15 UNIT SC ×3 (08:35→18:07)
[2024-08-08] MEDS: Insulin Lispro 100 UNIT/ML INSULN.PEN SC ×2 (08:35→12:40)
[2024-08-08] MEDS: Insulin Glargine-YFGN 100 UNIT/ML Pen 20 UNIT SC (08:36)
[2024-08-08] MEDS: Pantoprazole Sodium 40 MG Tablet PO (08:37)
[2024-08-08] MEDS: Enoxaparin 40 MG/0.4 ML Syringe SC (08:37)
[2024-08-08] MEDS: Lactobacillis Acidophilus 1 CAP PO (08:37)
[2024-08-08] MEDS: Aspirin 81 MG TAB.CHEW PO (08:37)
[2024-08-08] MEDS: Tolterodine Tartrate 4 MG CAP.SA PO (08:38)
[2024-08-08] MEDS: Gabapentin 300 MG Capsule PO ×2 (08:38→21:45)
[2024-08-08] MEDS: Cholecalciferol (VIT D3) 25 MCG TABLET (1,000 UNITS) PO (08:38)
[2024-08-08] MEDS: Tuberculin,Purif.prot.deriv. 50 TU/ML Vial 0.1 ML ID (09:22)
[2024-08-08 10:00] VITALS: RESP 16
--- NOTE | 2024-08-08 10:12 | PCM.PROGNOTE ---
Subjective Subjective Afebrile VSS - Maintaining appropriate oxygen saturation on RA Oral intake - FOOD taking 50 to 74% of most meals. FLUIDS poor She is incontinent of urine. Discussed with nursing - no problems that need addressed Reviewed the THERAPY notes Medication list reviewed. Denies dysuria, flank pain, nausea, abdominal pain. Also denies chest pain, palpitations, lightheadedness, cephalgia, calf tenderness. Urine is positive for yeast, not Shanna albicans. She had a CT scan of the abdomen and pelvis on 07/10/2024 that showed normal kidneys Recently was on broad-spectrum antibiotics (meropenem) for suspected urinary tract infection and she has uncontrolled diabetes mellitus. In talking with family she has been declining since the end of June. Etiology of the syncopal episode was not identified. She is very weak and much more confused since the end of June. Blood pressures are uncontrolled. She was on metoprolol XL 200 mg daily and somehow this did not get continued with transfer to TCU. Bp's have not been well controlled in the past. BS's are uncontrolled.......HGBA1C was 7.2 on 08/05/2024. She was on a large dose of insulin with each meal and glargine. Suspect she has considerable insulin resistance. She does not have a bacterial UTI. She is asymptomatic with the yeast in the urine......CT of the abd/pelvis the end of June showed no perinephric stranding and no abscesses in the kidneys. No indication for treatment at this time. She has not had an MRI since the stroke in June of 2023. CT scan today is unchanged from admission.....old L side lacunar infarct. I have no explanation for the rapid decline in strength and cognition starting the end of June. I am suspicious she may have had another stroke. Will need to get a precert to do a MRI. Will discuss with nursing. Objective Data Objective Data Vital Signs: Vital Signs Temp Pulse Resp BP Pulse Ox O2 Del Method 97.1 F L 77 16 170/69 H 97 Room Air 08/07/24 10:08/07/24 15:04 08/07/24 15:04 08/07/24 10:08/07/24 15:04 08/07/24 15:04 Oxygen Delivery Method Room Air Weight: 153 lb 6.397 oz Body Mass Index (BMI) 28.0 Intake & Output: Intake and Output for Last 24 Hours 08/06/24 08/07/24 08/08/24 23:59 23:59 23:59 Intake Total 720 / 720 Balance 720 / 720 Lab / Micro Data 08/08/24 05:40 08/08/24 05:40 Labs: Laboratory Results - last 24 hr 08/07/24 11:34: POC Glucose 248 H 08/07/24 17:05: POC Glucose 207 H 08/07/24 21:10: POC Glucose 163 H 08/08/24 03:59: POC Glucose 229 H 08/08/24 05:40: WBC 7.2, RBC 4.05 L, Hgb 12.8, Hct 38.3, MCV 94.6, MCH 31.6, MCHC 33.4, RDW Std Deviation 46.2 H, RDW Coeff of Win 13.4, Plt Count 253, MPV 9.6, Immature Gran % (Auto) 0.300, Neut % (Auto) 65.9, Lymph % (Auto) 18.0 L, [place] % (Auto) 10.1 H, Eos % (Auto) 5.1 H, Baso % (Auto) 0.6, Absolute Neuts (auto) 4.8, Absolute Lymphs (auto) 1.30, Nucleated RBC % 0, Sodium 135 L, Potassium 4.1, Chloride 106, Carbon Dioxide 23.0, Anion Gap 5, BUN 18, Creatinine 0.73, Estim Creat Clear Calc 49.55, Est GFR (MDRD) Af Amer 98, Est GFR (MDRD) Non-Af 81, BUN/Creatinine Ratio 24.6 H, Glucose 250 H, Calcium 9.5 08/08/24 06:29: POC Glucose 233 H Physical Exam Const Constitutional Narrative: More alert today than yesterday and able to focus a little better. Having trouble with word finding and memory. She is able to tell me her name, the month, the year and where she is at. Does not really know why she is here. General Appearance: cooperative Orientation / Consciousness: confused HEENT HEENT Narrative: Mucous membranes are dry Resp normal respiratory effort, normal air movement and clear to auscultation bilaterally Resp Narrative: No cough. Effort and Inspection: Negative for tachypneic or labored Cardio regular rate, regular rhythm, no murmurs, no rub and no gallops Cardio Narrative: No ectopy. Denies palpitations. Denies lightheadedness. GI GI Narrative: Abdomen is soft with bowel sounds heard in all 4 quadrants. No guarding with palpation. She is not complaining of abdominal pain or nausea today. Extremity no calf tenderness General Extremity: Negative for clubbing, cyanosis or edema Assessment & Plan Assessment/Plan (1) Debility: (2) Encephalopathy acute: (3) Cystitis: (4) Diabetes 1.5, managed as type 1: (5) Diabetes mellitus with hyperglycemia, with long-term current use of insulin: QUALIFIERS: Diabetes mellitus type: type 2 Qualified Code(s): E11.65 - Type 2 diabetes mellitus with hyperglycemia; Z79.4 - assisted (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 (6) Bronchiectasis: QUALIFIERS: Bronchiectasis type: uncomplicated Qualified Code(s): J47.9 - Bronchiectasis, uncomplicated (7) S/P lobectomy of lung: (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 Continue therapy 2. Will discuss with nursing how to proceed with obtaining precertification for an MRI of the brain 3. She has asymptomatic funguria and there is no indication to treat this at this time. Levaquin has been discontinued. 4. Check orthostatic vital signs 5. Encouraged her to increase her fluid intake. 6. Increase the glargine to 26 units twice daily and continue 15 units of lispro with meals plus sliding scale 7. Start Cardizem CD 120 mg daily-starting now. Beta-blockers can increase confusion so we will hold off on that for now. Blood pressures were about the same when she was taking metoprolol 200 mg a day 8. Continue to hold Ativan. She was only taking 0.5 mg daily in the AM. She was managing her own medications.......I question whether she was taking them as instructed ........ will need to manage meds going forward. 9. Change Cymbalta to every morning since she is having insomnia. 10. Consider decreasing the gabapentin dose due to confusion/cognitive decline. Charges/Coding Visit Charges Inpatient E&M: 10696 SNF Subs L2
[2024-08-08 11:54] LABS: Bedside Glucose 227 mg/dL (74-106)
--- NOTE | 2024-08-08 12:20 | NURSING ---
[facility] [employer] Note; Activity Asset: Brunilda Moise has returned to tcu for therapy. She remains independent in her choice of daily activities w/reminders. She has her tablet and smartphone she use for her games and reading. Staff will encourage social activities, remind her of weekly activities and respect her right to say no.
--- NOTE | 2024-08-08 16:32 | CASEMGMT ---
Social Work SW attempted to meet with pt to complete assessment. Pt sleeping soundly and spouse requesting SW not disturb pt at this time. SW completed assessment with pt spouse. SW verified contacts and code status with spouse. HCPOA on file naming Josr, and decision maker and SW requested Josr bring copy of living will in. SW educated spouse to Medicare benefit and copay coverage and encouraged him to contact secondary insurance to ensure copay coverage. Pt's goal is to return home with spouse. [place] will continue to follow for dc planning. ALEXANDRIA Aguillon
[2024-08-08 16:44] LABS: Vitamin B12 1104 pg/mL (211-911)
[2024-08-08] MEDS: dilTIAZem CD 120 MG Capsule PO (18:07)
[2024-08-08 19:35] VITALS: BP 128/74; PULSE 91; RESP 20; TEMP 36.5; O2SAT 95
[2024-08-08] MEDS: Insulin Glargine-YFGN 100 UNIT/ML Pen 26 UNIT SC (21:39)
[2024-08-08 21:40] LABS: Bedside Glucose 181 mg/dL (74-106)
[2024-08-08] MEDS: MELATONIN 3 MG TABLET 1.5 MG PO (21:42)
[2024-08-08] MEDS: Atorvastatin Calcium 20 MG Tablet PO (21:42)
[2024-08-08] MEDS: MENTHOL 226.8 GM JAR 1 APPLIC TOPICAL (21:52)
[2024-08-09 06:22] LABS: Bedside Glucose 255 mg/dL (74-106)
[2024-08-09 06:46] VITALS: PULSE 84; O2SAT 97
[2024-08-09] MEDS: Insulin Lispro 100 UNIT/ML INSULN.PEN 15 UNIT SC (07:58)
[2024-08-09] MEDS: Insulin Lispro 100 UNIT/ML INSULN.PEN SC ×2 (07:59→12:01)
[2024-08-09] MEDS: Insulin Glargine-YFGN 100 UNIT/ML Pen 26 UNIT SC (08:00)
[2024-08-09] MEDS: Aspirin 81 MG TAB.CHEW PO (08:01)
[2024-08-09] MEDS: Lactobacillis Acidophilus 1 CAP PO (08:01)
[2024-08-09] MEDS: Enoxaparin 40 MG/0.4 ML Syringe SC (08:02)
[2024-08-09] MEDS: Tolterodine Tartrate 4 MG CAP.SA PO (08:02)
[2024-08-09] MEDS: DULoxetine Hcl 60 MG Capsule PO (08:02)
[2024-08-09] MEDS: Cholecalciferol (VIT D3) 25 MCG TABLET (1,000 UNITS) PO (08:03)
[2024-08-09] MEDS: Pantoprazole Sodium 40 MG Tablet PO (08:03)
[2024-08-09] MEDS: dilTIAZem CD 120 MG Capsule PO ×2 (08:03→22:09)
[2024-08-09] MEDS: Gabapentin 300 MG Capsule PO ×2 (08:05→22:15)
[2024-08-09 08:30] VITALS: BP 170/92; PULSE 90
[2024-08-09 10:17] LABS: Bedside Glucose 293 mg/dL (74-106)
--- NOTE | 2024-08-09 10:31 | PN_ITS ---
Subjective Subjective Afebrile Blood pressure this morning is 170/92. Yesterday at 7:30 PM it was 128/74. She was given diltiazem CD1 120 mg yesterday afternoon at 4:05 PM. The blood sugar record was reviewed. Denies lightheadedness, cephalgia, chest pain, shortness of breath, palpitations, nausea/vomiting/abdominal pain, dysuria and calf tenderness. More alert today. Conversation is more appropriate. Objective Data Objective Data Vital Signs: Vital Signs Temp Pulse Resp BP Pulse Ox O2 Del Method 97.7 F L 90 20 H 170/92 H 97 Room Air 08/08/24 19:35 08/09/24 08:30 08/08/24 19:35 08/09/24 08:30 08/09/24 06:46 08/09/24 06:46 Oxygen Delivery Method Room Air Weight: 153 lb 6.397 oz Body Mass Index (BMI) 28.0 Intake & Output: Intake and Output for Last 24 Hours 08/07/24 08/08/24 08/09/24 23:59 23:59 23:59 Intake Total 720 / 720 420 / 420 240 / 240 Balance 720 / 720 420 / 420 240 / 240 Lab / Micro Data 08/15/24 05:26 08/15/24 05:26 Labs: Laboratory Results - last 24 hr 08/08/24 05:40: Vitamin B12 1104 H, TSH 7.090 H 08/08/24 11:09: POC Glucose 227 H 08/08/24 21:12: POC Glucose 181 H 08/09/24 05:49: POC Glucose 255 H 08/09/24 09:59: POC Glucose 293 H Physical Exam Const Constitutional Narrative: More alert today than yesterday and able to focus a little better. Having trouble with word finding and memory. She is able to tell me her name, the month, the year and where she is at. More conversant and responding appropriately today. General Appearance: cooperative Resp normal respiratory effort, normal air movement and clear to auscultation bilaterally Cardio regular rate, regular rhythm, no murmurs, no rub and no gallops Cardio Narrative: No ectopy. Denies palpitations. Denies lightheadedness. GI GI Narrative: Abdomen is soft with bowel sounds heard in all 4 quadrants. No guarding with palpation. She is not complaining of abdominal pain or nausea today. 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 Increase diltiazem CD to 120 mg twice daily. Goal blood pressure is less than 130/80. 2. Add labetalol 200 mg p.o. every 6 hours as needed systolic greater than 165 or diastolic greater than 85. 3. Increase the mealtime insulin to 20 units 3 times daily AC 4. Continue 26 units of glargine in the a.m. but increase the p.m. glargine to 32 units. 5. Continue the sliding insulin scale 6. Add BuSpar 5 mg twice daily - I suspect the anxiety is increasing the BP's up Charges/Coding Visit Charges Inpatient E&M: 35019 Subs Hosp L1
[2024-08-09] MEDS: Acetaminophen 500 MG Tablet 1000 MG PO ×2 (10:59→22:01)
[2024-08-09 11:13] VITALS: BP 163/70; PULSE 90
[2024-08-09 11:26] LABS: Bedside Glucose 268 mg/dL (74-106)
[2024-08-09] MEDS: Insulin Lispro 100 UNIT/ML INSULN.PEN 20 UNIT SC ×2 (12:02→17:53)
[2024-08-09] MEDS: MENTHOL 226.8 GM JAR 1 APPLIC TOPICAL ×2 (12:05→22:00)
[2024-08-09] MEDS: 0.9% Saline Lock 10 ML Syringe IV ×2 (12:05→22:02)
[2024-08-09 15:03] VITALS: BP 153/74; PULSE 88; RESP 17; TEMP 36.6; O2SAT 94
[2024-08-09 16:36] LABS: Bedside Glucose 145 mg/dL (74-106)
[2024-08-09 16:56] VITALS: BP 146/83; BP 152/77; BP 161/82; PULSE 107; PULSE 87; PULSE 99
[2024-08-09 21:37] LABS: Bedside Glucose 130 mg/dL (74-106)
[2024-08-09 21:52] VITALS: BP 170/69; PULSE 83
[2024-08-09] MEDS: Labetalol 200 MG Tablet PO (21:59)
[2024-08-09] MEDS: busPIRone 5 MG Tablet PO (22:08)
[2024-08-09] MEDS: Atorvastatin Calcium 20 MG Tablet PO (22:09)
[2024-08-09] MEDS: MELATONIN 3 MG TABLET 1.5 MG PO (22:10)
[2024-08-09] MEDS: Insulin Glargine-YFGN 100 UNIT/ML Pen 32 UNIT SC (22:11)
[2024-08-10 06:37] LABS: Bedside Glucose 113 mg/dL (74-106)
[2024-08-10 06:37] LABS: Bedside Glucose 247 mg/dL (74-106)
[2024-08-10] MEDS: Insulin Lispro 100 UNIT/ML INSULN.PEN 20 UNIT SC ×3 (07:44→17:46)
[2024-08-10] MEDS: Insulin Lispro 100 UNIT/ML INSULN.PEN SC ×3 (07:44→17:45)
[2024-08-10] MEDS: Lactobacillis Acidophilus 1 CAP PO (07:45)
[2024-08-10] MEDS: dilTIAZem CD 120 MG Capsule PO ×2 (07:45→22:09)
[2024-08-10] MEDS: Pantoprazole Sodium 40 MG Tablet PO (07:45)
[2024-08-10] MEDS: busPIRone 5 MG Tablet PO ×2 (07:45→22:08)
[2024-08-10] MEDS: Tolterodine Tartrate 4 MG CAP.SA PO (07:45)
[2024-08-10] MEDS: Cholecalciferol (VIT D3) 25 MCG TABLET (1,000 UNITS) PO (07:45)
[2024-08-10] MEDS: DULoxetine Hcl 60 MG Capsule PO (07:45)
[2024-08-10] MEDS: Aspirin 81 MG TAB.CHEW PO (07:45)
[2024-08-10] MEDS: Enoxaparin 40 MG/0.4 ML Syringe SC (07:45)
[2024-08-10] MEDS: Insulin Glargine-YFGN 100 UNIT/ML Pen 26 UNIT SC (07:46)
[2024-08-10] MEDS: Gabapentin 300 MG Capsule PO ×2 (07:48→22:12)
[2024-08-10] MEDS: Menthol/Lanolin/Calamine/Znox 113 GM Tube 1 APPLIC TOPICAL ×2 (07:56→22:06)
[2024-08-10 07:58] VITALS: BP 125/68; PULSE 74
[2024-08-10 11:35] LABS: Bedside Glucose 301 mg/dL (74-106)
[2024-08-10 13:24] VITALS: BP 141/64; PULSE 74; RESP 18; TEMP 36.4; O2SAT 96
[2024-08-10] MEDS: 0.9% Saline Lock 10 ML Syringe IV ×2 (13:27→22:04)
[2024-08-10 16:31] LABS: Bedside Glucose 217 mg/dL (74-106)
[2024-08-10 21:54] LABS: Bedside Glucose 195 mg/dL (74-106)
[2024-08-10 22:00] VITALS: BP 139/66; PULSE 80
[2024-08-10] MEDS: MENTHOL 226.8 GM JAR 1 APPLIC TOPICAL (22:06)
[2024-08-10] MEDS: MELATONIN 3 MG TABLET 1.5 MG PO (22:09)
[2024-08-10] MEDS: Atorvastatin Calcium 20 MG Tablet PO (22:09)
[2024-08-10] MEDS: Acetaminophen 500 MG Tablet 1000 MG PO (22:13)
[2024-08-10] MEDS: Insulin Glargine-YFGN 100 UNIT/ML Pen 32 UNIT SC (22:15)
[2024-08-11 06:46] LABS: Bedside Glucose 190 mg/dL (74-106)
[2024-08-11 08:36] VITALS: BP 171/78; PULSE 92; RESP 16; TEMP 36.3; O2SAT 95
[2024-08-11] MEDS: Insulin Glargine-YFGN 100 UNIT/ML Pen 26 UNIT SC (08:40)
[2024-08-11] MEDS: Insulin Lispro 100 UNIT/ML INSULN.PEN SC ×2 (08:40→11:52)
[2024-08-11] MEDS: Insulin Lispro 100 UNIT/ML INSULN.PEN 20 UNIT SC ×3 (08:40→17:27)
[2024-08-11] MEDS: dilTIAZem CD 120 MG Capsule PO ×2 (08:41→21:29)
[2024-08-11] MEDS: busPIRone 5 MG Tablet PO ×2 (08:41→21:28)
[2024-08-11] MEDS: Aspirin 81 MG TAB.CHEW PO (08:41)
[2024-08-11] MEDS: Lactobacillis Acidophilus 1 CAP PO (08:41)
[2024-08-11] MEDS: DULoxetine Hcl 60 MG Capsule PO (08:42)
[2024-08-11] MEDS: Tolterodine Tartrate 4 MG CAP.SA PO (08:42)
[2024-08-11] MEDS: Pantoprazole Sodium 40 MG Tablet PO (08:42)
[2024-08-11] MEDS: Cholecalciferol (VIT D3) 25 MCG TABLET (1,000 UNITS) PO (08:42)
[2024-08-11] MEDS: Enoxaparin 40 MG/0.4 ML Syringe SC (08:42)
[2024-08-11] MEDS: Menthol/Lanolin/Calamine/Znox 113 GM Tube 1 APPLIC TOPICAL ×2 (08:43→21:40)
[2024-08-11] MEDS: Gabapentin 300 MG Capsule PO ×2 (08:44→21:28)
[2024-08-11] MEDS: Labetalol 200 MG Tablet PO (08:45)
--- NOTE | 2024-08-11 10:45 | NURSING ---
Offered covid vaccine, VIS provided. Resident declines at this time.
[2024-08-11 10:50] VITALS: BP 127/73; PULSE 78
[2024-08-11 11:22] VITALS: PULSE 81; RESP 16; O2SAT 99
[2024-08-11] MEDS: 0.9% Saline Lock 10 ML Syringe IV (11:26)
[2024-08-11 11:27] LABS: Bedside Glucose 333 mg/dL (74-106)
--- NOTE | 2024-08-11 12:34 | PCM.PN.DRR ---
TCU RX Drug Regimen Review Subjective/Objective Subjective/Objective Subjective: TCU Admission. 84 YOF presented to the ER with SOB/cough and congestion/back discomfort. Admitted to hospital for failure to thrive and possible UTI. Admitted to TCU with debility for strengthening and rehabilitation. Objective: Allergies adhesive tape Allergy (Verified 08/03/24 11:06) Hives/Rash ciprofloxacin (From Cipro) Allergy (Verified 08/03/24 11:06) Photosensitivity & dermatitis pioglitazone (From Actos) Allergy (Verified 08/03/24 11:06) Unknown codeine Adverse Reaction (Verified 08/03/24 11:06) Upset Stomach ibandronate sodium (From Boniva) Adverse Reaction (Verified 08/03/24 11:06) GI upset/esophageal burning ibuprofen Adverse Reaction (Verified 08/03/24 11:06) GI upset lansoprazole Adverse Reaction (Verified 08/03/24 11:06) Diarrhea metformin Adverse Reaction (Verified 08/03/24 11:06) Diarrhea miconazole (From Neosporin AF) Adverse Reaction (Verified 08/03/24 11:06) Rash/Blisters nabumetone (From Relafen) Adverse Reaction (Verified 08/03/24 11:06) GI upset pantoprazole (From Protonix) Adverse Reaction (Verified 08/03/24 11:06) Diarrhea sucralfate (From Carafate) Adverse Reaction (Verified 08/03/24 11:06) feels poorly Current Medications Generic Name Dose Route Start Last Admin Trade Name Freq PRN Reason Stop Dose Admin Acetaminophen 1,000 mg 08/09/24 10:07 08/10/24 22:13 Acetaminophen 500 Mg Tablet PO 1,000 mg Q8H PRN PRN Administration Pain 1-10 or Fever Albuterol Sulfate 2 puff 08/07/24 12:20 Albuterol Ih (6.7 Gm) 1 Puff Inhaler INHALATION Q6H PRN shortness of breath or wheezing Aspirin 81 mg 08/08/24 08:00 08/11/24 08:41 Aspirin 81 Mg Tab.Chew PO 81 mg DAILY@0800 [facility] Administration Atorvastatin Calcium 20 mg 08/07/24 22:00 08/10/24 22:09 Atorvastatin Calcium 20 Mg Tablet PO 20 mg QHS [facility] Administration Buspirone HCl 5 mg 08/09/24 22:00 08/11/24 08:41 Buspirone 5 Mg Tablet PO 5 mg BID COLLINS Administration Calamine/Phenol 1 applic 08/07/24 22:00 08/11/24 08:43 Menthol/Lanolin/Calamine/Znox 113 Gm Tube TOPICAL 1 applic BID [facility] Administration Protocol Cholecalciferol 25 mcg 08/08/24 10:00 08/11/24 08:42 Cholecalciferol (Vit D3) 25 Mcg Tablet (1,000 Units) PO 25 mcg DAILY COLLINS Administration Diltiazem HCl 120 mg 08/09/24 22:00 08/11/24 08:41 Diltiazem Cd 120 Mg Capsule PO 120 mg BID [facility] Administration Protocol Duloxetine HCl 60 mg 08/09/24 10:00 08/11/24 08:42 Duloxetine Hcl 60 Mg Capsule PO 60 mg DAILY [facility] Administration Enoxaparin Sodium 40 mg 08/08/24 10:00 08/11/24 08:42 Enoxaparin 40 Mg/0.4 Ml Syringe SC 40 mg DAILY [facility] Administration Gabapentin 300 mg 08/07/24 22:00 08/11/24 08:44 Gabapentin 300 Mg Capsule PO 300 mg BID [facility] Administration Insulin Glargine 26 unit 08/10/24 08:00 08/11/24 08:40 Insulin Glargine-Yfgn 100 Unit/Ml Pen SC 26 unit BREAKFAST [facility] Administration Insulin Glargine 32 unit 08/09/24 22:00 08/10/24 22:15 Insulin Glargine-Yfgn 100 Unit/Ml Pen SC 32 unit QHS [facility] Administration Insulin Human Lispro 0 unit 08/07/24 16:45 08/11/24 11:52 Insulin Lispro 100 Unit/Ml Insuln.Pen SC 8 units TIDAC [facility] Administration Protocol Insulin Human Lispro 20 unit 08/09/24 11:45 08/11/24 11:51 Insulin Lispro 100 Unit/Ml Insuln.Pen SC 20 u TIDAC [facility] Administration Labetalol HCl 200 mg 08/09/24 11:02 08/11/24 08:45 Labetalol 200 Mg Tablet PO 200 mg Q6H PRN PRN Administration SYS>165 TIDWELL>85 Protocol Melatonin 1.5 mg 08/08/24 22:00 08/10/24 22:09 Melatonin 3 Mg Tablet PO 1.5 mg QHS [facility] Administration Menthol 1 applic 08/07/24 12:04 08/10/24 22:06 Menthol 226.8 Gm Jar TOPICAL 1 applic TID PRN PRN Administration Pain 1-10/Inflammation Pantoprazole Sodium 40 mg 08/08/24 10:00 08/11/24 08:42 Pantoprazole Sodium 40 Mg Tablet PO 40 mg DAILY [facility] Administration Sodium Chloride 10 - 40 ml 08/08/24 21:34 08/11/24 11:26 0.9% Saline Lock 10 Ml Syringe IV 10 ml UD PRN Administration SALINE FLUSH Tolterodine Tartrate 4 mg 08/08/24 10:00 08/11/24 08:42 Tolterodine Tartrate 4 Mg Cap.Sa PO 4 mg DAILY [facility] Administration Tuberculin PPD 0.1 ml 08/15/24 10:00 Tuberculin,Purif.Prot.Deriv. 50 Tu/Ml Vial ID 08/15/24 10:01 X1 ONE Problem List Chronic prescription benzodiazepine use (Acute) Diabetes mellitus with hyperglycemia, with long-term current use of insulin (Acute) Cystitis (Acute) Encephalopathy acute (Acute) Diabetes 1.5, managed as type 1 (Chronic) Bronchiectasis (Chronic) Left lumbar radiculopathy (Acute) Depression (Acute) Essential (primary) hypertension (Chronic) Vital Signs Temp Pulse Resp BP Pulse Ox O2 Del Method 97.3 F L 81 16 127/73 H 99 Room Air 08/11/24 08:36 08/11/24 11:22 08/11/24 11:22 08/11/24 10:50 08/11/24 11:22 08/11/24 11:22 Oxygen Delivery Method Room Air Weight: 69.581 kg Body Mass Index (BMI) 28.0 Sodium 135 mmol/L (136-145) L 08/08/24 05:40 Potassium 4.1 mmol/L (3.5-5.1) 08/08/24 05:40 Chloride 106 mmol/L (98-107) 08/08/24 05:40 Carbon Dioxide 23.0 mmol/L (21.0-32.0) 08/08/24 05:40 Anion Gap 5 (5-15) 08/08/24 05:40 BUN 18 mg/dL (7-18) 08/08/24 05:40 Creatinine 0.73 mg/dL (0.55-1.02) 08/08/24 05:40 Est GFR (MDRD) Af Amer 98 mL/min (>60) 08/08/24 05:40 Est GFR (MDRD) Non-Af 81 mL/min (>60) 08/08/24 05:40 BUN/Creatinine Ratio 24.6 RATIO (10-20) H 08/08/24 05:40 Glucose 250 mg/dL (74-106) H 08/08/24 05:40 Assessment/Plan: 1. Pain: acetaminophen 1000mg PO Q8H PRN pain 1-10/fever and menthol blue gel topical TID PRN pain 1-10/inflammation. Resident has had 3 doses of acetaminophen for pain scores of 6/8/9 in the foot/headache and 5 doses of menthol blue gel. Please continue to monitor for increased pain, PRN usage. 2. DVT prophylaxis: enoxaparin 40mcg SC daily. Please continue to monitor for S/S of bleeding/DVT, hemoglobin (last 12.8g/dL), platelets (last 253,000) and renal function. 3. GERD: pantoprazole 40mg PO daily. Please continue to monitor for S/S of GERD and diarrhea (BEERs medication). 4. Hypertension: diltiazem CD 120mg PO BID and labetalol 200mg PO Q6H PRN systolic > 165 or diastolic >85. Resident has had 2 doses of PRN labetalol. Please continue to monitor BP (last 127/73), HR (last 81), PRN usage. 5. Hyperlipidemia: atorvastatin 20mg PO QHS. Please consider ordering a lipid panel as the last was from 12/2019. Thanks. Please continue to monitor LFTs (last 08/04/24) and for muscle pain. 6. Diabetes mellitus: insulin glargine 26units SC breakfast and 32units QHS, insulin lispro 20untis SC TIDAC and sliding scale (high/medium) TIDAC - 14 units in 24 hours. Please continue to monitor glucose (last 250mg/dL), hemoglobin A1c (last 7.2% 08/05/24), S/S of hypoglycemia. 7. History of CVA: aspirin 81mg PO daily. Please continue to monitor for S/S of stroke/bleeding and hemoglobin. 8. Overall health: cholecalciferol 25mcg PO daily. Please consider ordering a vitamin D level as there is no level in the chart. Thanks. 9. Insomnia: melatonin 1.5mg PO QHS. Please continue to monitor for excessive daytime drowsiness and improved insomina. Assessment/Plan for indications treated with psychotropic medications: 1. Depression/anxiety: buspirone 5mg PO BID and duloxetine 60mg PO daily. Please consider GDR for duloxtine by 01/2025 if clinically appropriate. Thanks. Buspirone just started, GDR not appropriate at this time. Please continue to monitor for suicidal ideation (black box warning), falls/fractures (BEERs), renal function, sodium (last 135mmol/L). Medical chart and medication regimen reviewed. The following medication irregularities or issues were identified: 1. Duloxetine 60mg PO daily. Please consider GDR by 01/2025 if clinically appropriate. Thanks. 2. Atorvastatin 20mg PO QHS. Please consider ordering a lipid panel as the last was from 12/2019. Thanks. 3. I did not see documented indications for gabapentin or tolterodine. Please consider adding the indications if the medications are clinically warranted. Thanks. 4. Cholecalciferol 25mcg PO daily. Please consider ordering a vitamin D level as there is no level in the chart. Thanks. Date Date of Note: 08/11/24
[2024-08-11 16:49] LABS: Bedside Glucose 152 mg/dL (74-106)
[2024-08-11 17:15] LABS: T4 Free Direct 1.14 ng/dL (0.76-1.46)
--- NOTE | 2024-08-11 17:26 | PCM.PN.BLA ---
Progress Note Ana is well known to me. She has type 2 diabetes on MDI and using Sanjeev CGM. Currently wearing CGM. She is having some daytime highs. TSH is 7.09, with postive family history, previous TSH in the 3-4 range. Assessment & Plan Assessment/Plan (1) Diabetes 1.5, managed as type 1: PLAN: I will follow CGM blood sugars and adjust insulin. For now, increase lispro to 23 units tid. (2) Abnormal finding on thyroid function test: PLAN: Could be non-thyroidal illness. Check TPO.
[2024-08-11 20:28] LABS: Bedside Glucose 173 mg/dL (74-106)
[2024-08-11] MEDS: Acetaminophen 500 MG Tablet 1000 MG PO (21:28)
[2024-08-11] MEDS: MELATONIN 3 MG TABLET 1.5 MG PO (21:29)
[2024-08-11] MEDS: Atorvastatin Calcium 20 MG Tablet PO (21:30)
[2024-08-11 21:33] VITALS: BP 156/77; PULSE 89; RESP 16
[2024-08-11] MEDS: Insulin Glargine-YFGN 100 UNIT/ML Pen 32 UNIT SC (21:35)
[2024-08-12 06:26] LABS: Bedside Glucose 137 mg/dL (74-106)
[2024-08-12] MEDS: Enoxaparin 40 MG/0.4 ML Syringe SC (08:17)
[2024-08-12] MEDS: Insulin Lispro 100 UNIT/ML INSULN.PEN 23 UNIT SC ×3 (08:17→17:52)
[2024-08-12] MEDS: Pantoprazole Sodium 40 MG Tablet PO (08:21)
[2024-08-12] MEDS: Tolterodine Tartrate 4 MG CAP.SA PO (08:21)
[2024-08-12] MEDS: dilTIAZem CD 120 MG Capsule PO ×2 (08:21→22:13)
[2024-08-12] MEDS: DULoxetine Hcl 60 MG Capsule PO (08:21)
[2024-08-12] MEDS: Aspirin 81 MG TAB.CHEW PO (08:21)
[2024-08-12] MEDS: busPIRone 5 MG Tablet PO ×2 (08:21→22:11)
[2024-08-12] MEDS: Lactobacillis Acidophilus 1 CAP PO (08:21)
[2024-08-12] MEDS: Menthol/Lanolin/Calamine/Znox 113 GM Tube 1 APPLIC TOPICAL ×2 (08:21→22:12)
[2024-08-12] MEDS: Cholecalciferol (VIT D3) 25 MCG TABLET (1,000 UNITS) PO (08:21)
[2024-08-12] MEDS: MENTHOL 226.8 GM JAR 1 APPLIC TOPICAL ×2 (08:22→22:22)
[2024-08-12] MEDS: Acetaminophen 500 MG Tablet 1000 MG PO ×2 (08:24→22:21)
[2024-08-12] MEDS: Insulin Glargine-YFGN 100 UNIT/ML Pen 26 UNIT SC (08:31)
[2024-08-12] MEDS: Gabapentin 300 MG Capsule PO ×2 (08:34→22:11)
[2024-08-12 10:42] VITALS: BP 161/82; PULSE 81; RESP 16; TEMP 35.9; O2SAT 98
[2024-08-12 11:12] VITALS: BMI 28.8
[2024-08-12 11:44] LABS: Bedside Glucose 324 mg/dL (74-106)
[2024-08-12] MEDS: Insulin Lispro 100 UNIT/ML INSULN.PEN SC ×2 (11:54→17:51)
[2024-08-12] MEDS: LORazepam 0.5 MG Tablet PO (11:57)
--- NOTE | 2024-08-12 13:20 | NURSING ---
1315- off floor to MRI.
--- NOTE | 2024-08-12 15:32 | CHAPLAIN ---
Type of Pastoral Visit _x__ Initial Visit ___ Follow-up Visit ___ On-call Visit ___ General Patient Visit ___ Spiritual Assessment ___ Family Conference ___ Bereavement ___ Rapid Response ___ Code Blue ___ Other (describe below) Pastoral Care Referral From _x__ Patient ___ Family ___ Nurse ___ Physician ___ Child Development Assistant ___ Sheet Metal Worker ___ Other (describe below) Sacrament/Intervention _x__ Active listening ___ Anointing ___ Anglican ___ Bereavement ___ Communion _x__ Sharifa exploration ___ ___ Life review _x__ Prayer ___ Reconciliation ___ Sacrament of Sick ___ Supportive presence ___ Wedding ___ Other (describe below) Pastoral Comments patient and spouse are in the room; both explain the situation and the extra tests happening that will determine if there are other issues to face; spouse is especially talkative and answers the questions; both welcome the prayers for support and express thanks for the opportunity to have spiritual care
[2024-08-12 16:54] LABS: Bedside Glucose 195 mg/dL (74-106)
[2024-08-12 20:00] VITALS: PULSE 88; O2SAT 96
[2024-08-12 21:50] LABS: Bedside Glucose 157 mg/dL (74-106)
[2024-08-12 22:08] VITALS: BP 145/67; PULSE 92
[2024-08-12] MEDS: 0.9% Saline Lock 10 ML Syringe IV (22:09)
[2024-08-12] MEDS: Insulin Glargine-YFGN 100 UNIT/ML Pen 32 UNIT SC (22:14)
[2024-08-12] MEDS: Atorvastatin Calcium 20 MG Tablet PO (22:17)
[2024-08-12] MEDS: MELATONIN 3 MG TABLET 1.5 MG PO (22:19)
[2024-08-13 06:23] LABS: Bedside Glucose 125 mg/dL (74-106)
[2024-08-13 06:35] VITALS: PULSE 86; O2SAT 96
[2024-08-13 08:23] VITALS: BP 154/89; PULSE 89; RESP 16; TEMP 36.1; O2SAT 97
[2024-08-13] MEDS: Insulin Lispro 100 UNIT/ML INSULN.PEN 23 UNIT SC ×2 (08:25→11:19)
[2024-08-13] MEDS: Enoxaparin 40 MG/0.4 ML Syringe SC (08:27)
[2024-08-13] MEDS: Insulin Glargine-YFGN 100 UNIT/ML Pen 26 UNIT SC (08:27)
[2024-08-13] MEDS: DULoxetine Hcl 60 MG Capsule PO (08:28)
[2024-08-13] MEDS: Menthol/Lanolin/Calamine/Znox 113 GM Tube 1 APPLIC TOPICAL ×2 (08:28→22:21)
[2024-08-13] MEDS: Pantoprazole Sodium 40 MG Tablet PO (08:28)
[2024-08-13] MEDS: Tolterodine Tartrate 4 MG CAP.SA PO (08:28)
[2024-08-13] MEDS: Aspirin 81 MG TAB.CHEW PO (08:28)
[2024-08-13] MEDS: dilTIAZem CD 120 MG Capsule PO ×2 (08:28→22:08)
[2024-08-13] MEDS: busPIRone 5 MG Tablet PO ×2 (08:28→22:08)
[2024-08-13] MEDS: Cholecalciferol (VIT D3) 25 MCG TABLET (1,000 UNITS) PO (08:28)
[2024-08-13] MEDS: Lactobacillis Acidophilus 1 CAP PO (08:28)
[2024-08-13] MEDS: Gabapentin 300 MG Capsule PO ×2 (08:31→22:14)
[2024-08-13 10:07] LABS: Thyroid Peroxidase AB 12 IU/mL (0-34)
[2024-08-13] MEDS: Insulin Lispro 100 UNIT/ML INSULN.PEN SC (11:20)
[2024-08-13 11:57] LABS: Bedside Glucose 234 mg/dL (74-106)
--- NOTE | 2024-08-13 15:12 | NURSING ---
dr arguelles updated on MRI brain- new orders d/c lovenox, start plavix, DC baby aspirin 21 days. CTA head & neck (last done in 2019) EKG & Echo recently done.
--- NOTE | 2024-08-13 15:13 | NURSING ---
family updated on all orders and MRI results per dr Forbes.
[2024-08-13 17:35] LABS: Bedside Glucose 78 mg/dL (74-106)
[2024-08-13 17:35] LABS: Bedside Glucose 63 mg/dL (74-106)
[2024-08-13 17:42] LABS: Bedside Glucose 79 mg/dL (74-106)
--- NOTE | 2024-08-13 18:04 | NURSING ---
dr arguelles notified of low blood sugar, order to hold insulin this evening.
[2024-08-13] MEDS: 0.9% Saline Lock 10 ML Syringe IV (18:37)
[2024-08-13 18:38] VITALS: BP 160/83; PULSE 101
[2024-08-13 18:53] LABS: Bedside Glucose 146 mg/dL (74-106)
[2024-08-13 21:30] LABS: Bedside Glucose 258 mg/dL (74-106)
[2024-08-13 22:05] VITALS: BP 176/81; PULSE 97
[2024-08-13] MEDS: Labetalol 200 MG Tablet PO (22:07)
[2024-08-13] MEDS: Atorvastatin Calcium 20 MG Tablet PO (22:07)
[2024-08-13] MEDS: Insulin Glargine-YFGN 100 UNIT/ML Pen 32 UNIT SC (22:08)
[2024-08-13] MEDS: MELATONIN 3 MG TABLET 1.5 MG PO (22:09)
[2024-08-13 23:00] VITALS: BP 174/74
[2024-08-14 05:32] VITALS: BP 126/67
[2024-08-14 06:04] LABS: Bedside Glucose 231 mg/dL (74-106)
[2024-08-14 08:17] VITALS: BP 132/71; PULSE 76; RESP 16; TEMP 36.1; O2SAT 93
[2024-08-14] MEDS: Acetaminophen 500 MG Tablet 1000 MG PO (08:20)
[2024-08-14] MEDS: Insulin Lispro 100 UNIT/ML INSULN.PEN 23 UNIT SC (08:22)
[2024-08-14] MEDS: Insulin Lispro 100 UNIT/ML INSULN.PEN SC ×2 (08:22→11:37)
[2024-08-14] MEDS: Tolterodine Tartrate 4 MG CAP.SA PO (08:26)
[2024-08-14] MEDS: Insulin Glargine-YFGN 100 UNIT/ML Pen 26 UNIT SC (08:27)
[2024-08-14] MEDS: dilTIAZem CD 120 MG Capsule PO ×2 (08:27→21:26)
[2024-08-14] MEDS: DULoxetine Hcl 60 MG Capsule PO (08:27)
[2024-08-14] MEDS: Lactobacillis Acidophilus 1 CAP PO (08:27)
[2024-08-14] MEDS: Cholecalciferol (VIT D3) 25 MCG TABLET (1,000 UNITS) PO (08:27)
[2024-08-14] MEDS: Pantoprazole Sodium 40 MG Tablet PO (08:27)
[2024-08-14] MEDS: Gabapentin 300 MG Capsule PO ×2 (08:28→21:27)
[2024-08-14] MEDS: Clopidogrel Bisulfate 75 MG Tablet PO (08:28)
[2024-08-14] MEDS: Aspirin 81 MG TAB.CHEW PO (08:28)
[2024-08-14] MEDS: busPIRone 5 MG Tablet PO ×2 (08:28→21:27)
[2024-08-14] MEDS: Menthol/Lanolin/Calamine/Znox 113 GM Tube 1 APPLIC TOPICAL ×2 (09:51→21:33)
[2024-08-14] MEDS: Insulin Lispro 100 UNIT/ML INSULN.PEN 27 UNIT SC ×2 (11:36→17:59)
[2024-08-14 11:51] LABS: Bedside Glucose 209 mg/dL (74-106)
--- NOTE | 2024-08-14 14:19 | CASEMGMT ---
Social Work SW completed BIMS () and PHQ-2 () for MDS assessment. Harmony Bhakta, [employer] P[employer]TER BUILDING RENTAL MANAGER
[2024-08-14 16:49] LABS: Bedside Glucose 147 mg/dL (74-106)
--- NOTE | 2024-08-14 17:08 | PCM.TCUNOT ---
Subjective Subjective I spoke with resident daughter Nargis ([place]) over the phone, we discussed her new stroke, and using aspirin 81mg daily, Plavix 75mg daily x 21 days, then Plavix 75mg daily only indefinitely, we also discussed Atorvastatin use to lower risk of stroke, I let her know I will order lipid panel for tomorrow's blood draw. We also discussed resident anxiety, she is currently on Buspar 5mg bid, will try to avoid lorazepam due to its addictive properties and increased risk of dementia. Nargis was very pleasant and appreciate my phone call, I let her know to call any time if she thinks of any new issues with her Mom, and we will address them promptly. Objective Data Objective Data Vital Signs: Vital Signs Temp Pulse Resp BP Pulse Ox O2 Del Method 97 F L 76 16 132/71 H 93 Room Air 08/14/24 08:17 08/14/24 08:17 08/14/24 08:17 08/14/24 08:17 08/14/24 08:17 08/14/24 08:17 Oxygen Delivery Method Room Air Weight: 71.395 kg Body Mass Index (BMI) 28.8 Intake & Output: Intake and Output for Last 24 Hours 08/12/24 08/13/24 08/14/24 23:59 23:59 23:59 Intake Total 840 / 840 960 / 960 480 / 480 Balance 840 / 840 960 / 960 480 / 480 Lab / Micro Data 08/08/24 05:40 08/08/24 05:40 Labs: Laboratory Results - last 24 hr 08/13/24 16:35: POC Glucose 78 08/13/24 17:04: POC Glucose 63 L 08/13/24 17:24: POC Glucose 79 08/13/24 18:35: POC Glucose 146 H 08/13/24 20:52: POC Glucose 258 H 08/14/24 05:34: POC Glucose 231 H 08/14/24 11:33: POC Glucose 209 H 08/14/24 16:12: POC Glucose 147 H
[2024-08-14 18:02] VITALS: PULSE 84; RESP 15; O2SAT 93
[2024-08-14] MEDS: Insulin Glargine-YFGN 100 UNIT/ML Pen 32 UNIT SC (21:26)
[2024-08-14] MEDS: MELATONIN 3 MG TABLET 1.5 MG PO (21:27)
[2024-08-14] MEDS: Atorvastatin Calcium 20 MG Tablet PO (21:27)
[2024-08-14 21:39] LABS: Bedside Glucose 153 mg/dL (74-106)
[2024-08-15 06:00] LABS: Absolute Lymphocyte Count 1.54 X10^3/uL (0.83-4.51); Absolute Neutrophil Count 5.3 X10^3/uL (2.0-7.7); Basophil# 0.06 X10^3/uL; Basophil% 0.7 % (0-1); Eosinophil# 0.43 X10^3/uL; Eosinophils% 5.3 % (0-5); Hematocrit 37.6 % (37-47); Hemoglobin 12.7 g/dL (12.0-15.0); Lymphocyte # 1.54 X10^3/ul (0.83-4.51); Mean Corp Hgb Conc 33.8 g/dL (32-36); Mean Corpuscular Hgb 31.9 pg (27.0-32.0); Mean Corpuscular Volume 94.5 fL (81-99); Mean Platelet Vol. 9.9 fl (6.2-12.0); Monocyte# 0.82 X10^3/uL; Monocyte% 10.1 % (0-10); NRBC Flagged by Analyzer 0 % (0-5); Neutrophil # 5.25 X10^3/uL (2.7-7.7); Neutrophil % 64.7 % (47-70); Platelet Count 270 K/mm3 (150-450); RBC Distribution Width CV 13.1 % (11.6-14.6); Red Blood Count 3.98 M/mm3 (4.2-5.4); White Blood Count 8.1 K/mm3 (4.4-11.0)
[2024-08-15 06:20] LABS: Anion Gap 6 (5-15); BUN 23 mg/dL (7-18); BUN/Creat Ratio 27.6 RATIO (10-20); Calcium,Total 9.2 mg/dL (8.5-10.1); Chloride 104 mmol/L (98-107); Cholesterol 165 mg/dL (200); Creatinine, Serum 0.83 mg/dL (0.55-1.02); EST Glomerular Filtration Rate 70 mL/min (>60); Est Glom Filt Rate - Afr Amer 84 mL/min (>60); Estimated Creatinine Clearance 48.36 ml/min; Glucose 198 mg/dL (74-106); High Density Lipoprotein 61 mg/dL; Potassium 4.1 mmol/L (3.5-5.1); Sodium Level 136 mmol/L (136-145); Triglycerides 147 mg/dL; Very Low Density Lipoprotein 29 mg/dL (5-40)
[2024-08-15 06:44] LABS: Bedside Glucose 183 mg/dL (74-106)
[2024-08-15] MEDS: Insulin Lispro 100 UNIT/ML INSULN.PEN SC ×2 (08:42→11:35)
[2024-08-15] MEDS: Insulin Lispro 100 UNIT/ML INSULN.PEN 27 UNIT SC ×2 (08:42→11:35)
[2024-08-15] MEDS: Aspirin 81 MG TAB.CHEW PO (08:44)
[2024-08-15] MEDS: DULoxetine Hcl 60 MG Capsule PO (08:44)
[2024-08-15] MEDS: Lactobacillis Acidophilus 1 CAP PO (08:44)
[2024-08-15] MEDS: busPIRone 5 MG Tablet PO ×2 (08:45→22:05)
[2024-08-15] MEDS: dilTIAZem CD 120 MG Capsule PO ×2 (08:45→22:04)
[2024-08-15] MEDS: Pantoprazole Sodium 40 MG Tablet PO (08:46)
[2024-08-15] MEDS: Cholecalciferol (VIT D3) 25 MCG TABLET (1,000 UNITS) PO (08:46)
[2024-08-15] MEDS: Tolterodine Tartrate 4 MG CAP.SA PO (08:46)
[2024-08-15] MEDS: Clopidogrel Bisulfate 75 MG Tablet PO (08:46)
[2024-08-15] MEDS: Insulin Glargine-YFGN 100 UNIT/ML Pen 26 UNIT SC (08:47)
[2024-08-15] MEDS: Menthol/Lanolin/Calamine/Znox 113 GM Tube 1 APPLIC TOPICAL ×2 (08:49→22:06)
--- NOTE | 2024-08-15 08:49 | NURSING ---
Proof Inspector Note; MDS for 08/14/2024 complete
[2024-08-15] MEDS: Gabapentin 300 MG Capsule PO ×2 (08:50→22:09)
[2024-08-15 10:00] VITALS: PULSE 78; RESP 16; O2SAT 95
[2024-08-15] MEDS: Tuberculin,Purif.prot.deriv. 50 TU/ML Vial 0.1 ML ID (11:30)
[2024-08-15 11:35] LABS: Bedside Glucose 212 mg/dL (74-106)
--- NOTE | 2024-08-15 13:55 | CASEMGMT ---
Social Work IDT met with patient, and two daughters for care plan meeting. Discussed patient's progress in PT/OT/ST/SN. Educated to Medicare benefit. Provided written communication on insurance process and copay coverage during stay. SW requested family provide copies of advanced directives. Discussed DC planning for physical and cognitive assistance. Offered for to attend therapy training to ensure he can care for pt. Pt is adamant about returning home. SW educated to hiring nonskilled TICKET SALES SUPERVISOR and provided list of resources for TICKET SALES SUPERVISOR, [place] and medical alert. Pt/family open to coordinating additional supports in the home at [place]. SW will continue to follow for DC planning. SAWYER CavazosW
[2024-08-15 14:56] VITALS: BP 166/81; PULSE 94; RESP 16; TEMP 36.7; O2SAT 95
[2024-08-15 17:27] LABS: Bedside Glucose 131 mg/dL (74-106)
[2024-08-15 21:37] LABS: Bedside Glucose 238 mg/dL (74-106)
[2024-08-15 22:02] VITALS: BP 159/70; PULSE 89
[2024-08-15] MEDS: Atorvastatin Calcium 20 MG Tablet PO (22:04)
[2024-08-15] MEDS: MELATONIN 3 MG TABLET 1.5 MG PO (22:05)
[2024-08-15] MEDS: Insulin Glargine-YFGN 100 UNIT/ML Pen 36 UNIT SC (22:06)
[2024-08-15] MEDS: Acetaminophen 500 MG Tablet 1000 MG PO (22:09)
[2024-08-16 06:35] LABS: Bedside Glucose 194 mg/dL (74-106)
[2024-08-16 08:38] VITALS: BP 165/69; PULSE 85; RESP 16; TEMP 36.1; O2SAT 97
[2024-08-16] MEDS: Insulin Lispro 100 UNIT/ML INSULN.PEN SC ×2 (08:42→12:05)
[2024-08-16] MEDS: Insulin Lispro 100 UNIT/ML INSULN.PEN 27 UNIT SC ×2 (08:42→12:06)
[2024-08-16] MEDS: Aspirin 81 MG TAB.CHEW PO (08:43)
[2024-08-16] MEDS: Insulin Glargine-YFGN 100 UNIT/ML Pen 26 UNIT SC (08:43)
[2024-08-16] MEDS: Lactobacillis Acidophilus 1 CAP PO (08:44)
[2024-08-16] MEDS: busPIRone 5 MG Tablet PO ×2 (08:44→23:03)
[2024-08-16] MEDS: Menthol/Lanolin/Calamine/Znox 113 GM Tube 1 APPLIC TOPICAL ×2 (08:44→23:05)
[2024-08-16] MEDS: dilTIAZem CD 120 MG Capsule PO ×2 (08:45→23:03)
[2024-08-16] MEDS: DULoxetine Hcl 60 MG Capsule PO (08:45)
[2024-08-16] MEDS: Tolterodine Tartrate 4 MG CAP.SA PO (08:45)
[2024-08-16] MEDS: Clopidogrel Bisulfate 75 MG Tablet PO (08:46)
[2024-08-16] MEDS: Pantoprazole Sodium 40 MG Tablet PO (08:46)
[2024-08-16] MEDS: Cholecalciferol (VIT D3) 25 MCG TABLET (1,000 UNITS) PO (08:46)
[2024-08-16] MEDS: Gabapentin 300 MG Capsule PO ×2 (08:48→22:59)
[2024-08-16] MEDS: Acetaminophen 500 MG Tablet 1000 MG PO ×2 (08:48→23:07)
[2024-08-16 11:59] LABS: Bedside Glucose 214 mg/dL (74-106)
--- NOTE | 2024-08-16 16:25 | NURSING ---
Addendum entered by Magaly Shea 08/16/24 18:45: Patient BGT 74 after dinner. Patient remains asymtomatic. Patient eating ice cream. No further needs at this time. Call light within reach. Addendum entered by Magaly Shea 08/16/24 18:43: Patient BGT decreased on recheck. Patient eating gum drops. Patient not symptomatic. Patient requesting to wait for dinner. Will continue to monitor. Addendum entered by Magaly Shea 08/16/24 16:29: Per Dr. Forbes, HOLD insulin with dinner. VORB. Original Note: Call placed to Dr. Forbes. Updated on decreased BGT. New orders received DC sliding scale, decrease Lispro with meals, and decrease glargine at breakfast and HS. VORB.
[2024-08-16 16:43] LABS: Bedside Glucose 45 mg/dL (74-106)
[2024-08-16 17:15] LABS: Bedside Glucose 58 mg/dL (74-106)
[2024-08-16 18:28] LABS: Bedside Glucose 74 mg/dL (74-106)
[2024-08-16 22:00] LABS: Bedside Glucose 317 mg/dL (74-106)
[2024-08-16] MEDS: Oseltamivir Phosphate 30 MG Capsule PO (22:59)
[2024-08-16 23:00] VITALS: BP 149/86; PULSE 102
[2024-08-16] MEDS: Atorvastatin Calcium 20 MG Tablet PO (23:00)
[2024-08-16] MEDS: MELATONIN 3 MG TABLET 1.5 MG PO (23:01)
[2024-08-16] MEDS: Insulin Glargine-YFGN 100 UNIT/ML Pen 25 UNIT SC (23:11)
[2024-08-17] MEDS: MENTHOL 226.8 GM JAR 1 APPLIC TOPICAL (01:08)
[2024-08-17 06:08] LABS: Bedside Glucose 268 mg/dL (74-106)
[2024-08-17 08:32] VITALS: BP 165/80; PULSE 91; TEMP 36.1; O2SAT 96
[2024-08-17] MEDS: Insulin Lispro 100 UNIT/ML INSULN.PEN 15 UNIT SC ×3 (08:34→17:58)
[2024-08-17] MEDS: Aspirin 81 MG TAB.CHEW PO (08:35)
[2024-08-17] MEDS: Insulin Glargine-YFGN 100 UNIT/ML Pen 25 UNIT SC ×2 (08:35→21:35)
[2024-08-17] MEDS: Lactobacillis Acidophilus 1 CAP PO (08:36)
[2024-08-17] MEDS: busPIRone 5 MG Tablet PO ×2 (08:36→21:35)
[2024-08-17] MEDS: dilTIAZem CD 120 MG Capsule PO ×2 (08:36→21:35)
[2024-08-17] MEDS: Menthol/Lanolin/Calamine/Znox 113 GM Tube 1 APPLIC TOPICAL ×2 (08:36→21:42)
[2024-08-17] MEDS: DULoxetine Hcl 60 MG Capsule PO (08:37)
[2024-08-17] MEDS: Clopidogrel Bisulfate 75 MG Tablet PO (08:37)
[2024-08-17] MEDS: Pantoprazole Sodium 40 MG Tablet PO (08:37)
[2024-08-17] MEDS: Tolterodine Tartrate 4 MG CAP.SA PO (08:37)
[2024-08-17] MEDS: Cholecalciferol (VIT D3) 25 MCG TABLET (1,000 UNITS) PO (08:37)
[2024-08-17] MEDS: Gabapentin 300 MG Capsule PO ×2 (08:44→21:36)
[2024-08-17] MEDS: Acetaminophen 500 MG Tablet 1000 MG PO (11:23)
[2024-08-17 12:03] LABS: Bedside Glucose 337 mg/dL (74-106)
[2024-08-17 16:55] LABS: Bedside Glucose 248 mg/dL (74-106)
--- NOTE | 2024-08-17 16:56 | NURSING ---
Call placed to Dr. Forbes. Patient requesting Melatonin to be increased for sleep. New order Melatonin 10mg QHS. VORB.
[2024-08-17 19:55] LABS: Bedside Glucose 303 mg/dL (74-106)
[2024-08-17 21:30] VITALS: BP 159/75; PULSE 95
[2024-08-17] MEDS: MELATONIN 10 MG TABLET PO (21:36)
[2024-08-17] MEDS: Atorvastatin Calcium 20 MG Tablet PO (21:36)
[2024-08-17] MEDS: Oseltamivir Phosphate 30 MG Capsule PO (21:36)
[2024-08-17 21:40] LABS: Bedside Glucose 272 mg/dL (74-106)
[2024-08-17] MEDS: Nystatin Powder 15gm Bottle 1 APPLIC TOPICAL (21:42)
[2024-08-18 06:09] LABS: Bedside Glucose 279 mg/dL (74-106)
[2024-08-18 08:23] VITALS: BP 180/78; PULSE 89; TEMP 36.3; O2SAT 98
[2024-08-18] MEDS: Insulin Lispro 100 UNIT/ML INSULN.PEN 24 UNIT SC ×3 (08:27→17:50)
[2024-08-18] MEDS: Aspirin 81 MG TAB.CHEW PO (08:31)
[2024-08-18] MEDS: Menthol/Lanolin/Calamine/Znox 113 GM Tube 1 APPLIC TOPICAL ×2 (08:31→20:52)
[2024-08-18] MEDS: Lactobacillis Acidophilus 1 CAP PO (08:31)
[2024-08-18] MEDS: busPIRone 5 MG Tablet PO ×2 (08:31→20:39)
[2024-08-18] MEDS: DULoxetine Hcl 60 MG Capsule PO (08:32)
[2024-08-18] MEDS: Clopidogrel Bisulfate 75 MG Tablet PO (08:32)
[2024-08-18] MEDS: dilTIAZem CD 120 MG Capsule PO ×2 (08:32→20:40)
[2024-08-18] MEDS: Pantoprazole Sodium 40 MG Tablet PO (08:32)
[2024-08-18] MEDS: Labetalol 200 MG Tablet PO (08:32)
[2024-08-18] MEDS: Tolterodine Tartrate 4 MG CAP.SA PO (08:32)
[2024-08-18] MEDS: Nystatin Powder 15gm Bottle 1 APPLIC TOPICAL ×2 (08:32→20:53)
[2024-08-18] MEDS: Gabapentin 300 MG Capsule PO ×2 (08:32→20:51)
[2024-08-18] MEDS: Cholecalciferol (VIT D3) 25 MCG TABLET (1,000 UNITS) PO (08:36)
[2024-08-18 09:30] LABS: Vitamin D,25 Hydroxy 43.3 ng/mL
[2024-08-18] MEDS: Insulin Glargine-YFGN 100 UNIT/ML Pen 30 UNIT SC ×2 (09:35→20:47)
[2024-08-18 09:50] VITALS: BP 182/78
--- NOTE | 2024-08-18 09:53 | NURSING ---
follow-up on Pt B/p 182/78 manual- notified dr arguelles order given for one time dose of clonidine
[2024-08-18] MEDS: cloNIDine HCl 0.1 MG Tablet PO (10:22)
[2024-08-18] MEDS: Acetaminophen 500 MG Tablet 1000 MG PO (10:22)
[2024-08-18 11:50] VITALS: BP 158/82
[2024-08-18 12:01] LABS: Bedside Glucose 333 mg/dL (74-106)
[2024-08-18 16:46] LABS: Bedside Glucose 229 mg/dL (74-106)
[2024-08-18 18:10] VITALS: BP 132/67; PULSE 82
[2024-08-18 20:30] VITALS: BP 130/71
[2024-08-18] MEDS: MELATONIN 10 MG TABLET PO (20:39)
[2024-08-18] MEDS: Atorvastatin Calcium 20 MG Tablet PO (20:39)
[2024-08-18] MEDS: Oseltamivir Phosphate 30 MG Capsule PO (20:42)
[2024-08-18 21:16] LABS: Bedside Glucose 243 mg/dL (74-106)
[2024-08-19 06:17] LABS: Bedside Glucose 210 mg/dL (74-106)
--- NOTE | 2024-08-19 06:48 | MDS.RN ---
Information for the MDS was obtained from review of the clinical record, interview of resident, staff, and direct observation of resident?s care.
[2024-08-19 08:20] VITALS: BP 146/69; PULSE 72; RESP 16; TEMP 35.8; O2SAT 98
[2024-08-19] MEDS: Gabapentin 300 MG Capsule PO ×2 (08:21→21:36)
[2024-08-19] MEDS: dilTIAZem CD 120 MG Capsule PO ×2 (08:22→21:35)
[2024-08-19] MEDS: Aspirin 81 MG TAB.CHEW PO (08:22)
[2024-08-19] MEDS: Lactobacillis Acidophilus 1 CAP PO (08:22)
[2024-08-19] MEDS: Clopidogrel Bisulfate 75 MG Tablet PO (08:23)
[2024-08-19] MEDS: Nystatin Powder 15gm Bottle 1 APPLIC TOPICAL ×2 (08:23→21:48)
[2024-08-19] MEDS: DULoxetine Hcl 60 MG Capsule PO (08:23)
[2024-08-19] MEDS: Cholecalciferol (VIT D3) 25 MCG TABLET (1,000 UNITS) PO (08:23)
[2024-08-19] MEDS: Menthol/Lanolin/Calamine/Znox 113 GM Tube 1 APPLIC TOPICAL ×2 (08:23→21:48)
[2024-08-19] MEDS: busPIRone 5 MG Tablet PO ×2 (08:23→21:33)
[2024-08-19] MEDS: Tolterodine Tartrate 4 MG CAP.SA PO (08:23)
[2024-08-19] MEDS: Pantoprazole Sodium 40 MG Tablet PO (08:23)
[2024-08-19] MEDS: Insulin Lispro 100 UNIT/ML INSULN.PEN 24 UNIT SC ×3 (08:24→17:57)
[2024-08-19] MEDS: Insulin Glargine-YFGN 100 UNIT/ML Pen 30 UNIT SC ×2 (08:24→21:44)
[2024-08-19 10:42] VITALS: BMI 28.6
[2024-08-19 11:28] LABS: Bedside Glucose 316 mg/dL (74-106)
[2024-08-19 17:39] LABS: Bedside Glucose 155 mg/dL (74-106)
--- NOTE | 2024-08-19 18:49 | NURSING ---
pt c/o RLS jd, states she takes OTC medication at home but cannot remember name of it. updated Dr Forbes, new order for mirapex 0.25mg PRN HS. pt and updated and agreeable.
[2024-08-19] MEDS: Oseltamivir Phosphate 30 MG Capsule PO (21:33)
[2024-08-19] MEDS: MELATONIN 10 MG TABLET PO (21:33)
[2024-08-19] MEDS: Atorvastatin Calcium 20 MG Tablet PO (21:35)
[2024-08-19] MEDS: Pramipexole Di-HCl 0.25 MG Tablet PO (21:45)
[2024-08-19 22:27] LABS: Bedside Glucose 105 mg/dL (74-106)
[2024-08-20] MEDS: Acetaminophen 500 MG Tablet 1000 MG PO ×2 (01:20→22:03)
[2024-08-20 06:15] LABS: Bedside Glucose 179 mg/dL (74-106)
[2024-08-20 08:08] VITALS: BP 172/81; PULSE 90; RESP 15; TEMP 36.2; O2SAT 99
[2024-08-20] MEDS: Insulin Lispro 100 UNIT/ML INSULN.PEN 24 UNIT SC ×3 (08:10→17:30)
[2024-08-20] MEDS: Labetalol 200 MG Tablet PO (08:10)
[2024-08-20] MEDS: Aspirin 81 MG TAB.CHEW PO (08:11)
[2024-08-20] MEDS: dilTIAZem CD 120 MG Capsule PO ×2 (08:11→22:04)
[2024-08-20] MEDS: Pantoprazole Sodium 40 MG Tablet PO (08:11)
[2024-08-20] MEDS: Insulin Glargine-YFGN 100 UNIT/ML Pen 30 UNIT SC ×2 (08:11→22:05)
[2024-08-20] MEDS: Cholecalciferol (VIT D3) 25 MCG TABLET (1,000 UNITS) PO (08:12)
[2024-08-20] MEDS: busPIRone 5 MG Tablet PO ×2 (08:12→22:04)
[2024-08-20] MEDS: Lactobacillis Acidophilus 1 CAP PO (08:12)
[2024-08-20] MEDS: Tolterodine Tartrate 4 MG CAP.SA PO (08:12)
[2024-08-20] MEDS: Clopidogrel Bisulfate 75 MG Tablet PO (08:12)
[2024-08-20] MEDS: DULoxetine Hcl 60 MG Capsule PO (08:12)
[2024-08-20] MEDS: Menthol/Lanolin/Calamine/Znox 113 GM Tube 1 APPLIC TOPICAL ×2 (08:13→22:06)
[2024-08-20] MEDS: Nystatin Powder 15gm Bottle 1 APPLIC TOPICAL ×2 (08:13→22:04)
[2024-08-20] MEDS: Gabapentin 300 MG Capsule PO ×2 (08:14→22:03)
[2024-08-20 10:26] VITALS: BP 137/56; PULSE 84
[2024-08-20 12:12] LABS: Bedside Glucose 372 mg/dL (74-106)
[2024-08-20 17:08] LABS: Bedside Glucose 151 mg/dL (74-106)
[2024-08-20 21:31] LABS: Bedside Glucose 118 mg/dL (74-106)
[2024-08-20 22:00] VITALS: BP 155/74; PULSE 77; RESP 16; O2SAT 96
[2024-08-20] MEDS: MELATONIN 10 MG TABLET PO (22:04)
[2024-08-20] MEDS: Atorvastatin Calcium 20 MG Tablet PO (22:04)
[2024-08-20] MEDS: Oseltamivir Phosphate 30 MG Capsule PO (22:04)
[2024-08-21 07:02] LABS: Bedside Glucose 182 mg/dL (74-106)
[2024-08-21] MEDS: Insulin Lispro 100 UNIT/ML INSULN.PEN 24 UNIT SC ×3 (08:16→17:57)
[2024-08-21] MEDS: Gabapentin 300 MG Capsule PO ×2 (08:16→22:24)
[2024-08-21] MEDS: Insulin Glargine-YFGN 100 UNIT/ML Pen 30 UNIT SC ×2 (08:17→22:23)
[2024-08-21] MEDS: dilTIAZem CD 120 MG Capsule PO ×2 (08:17→22:25)
[2024-08-21] MEDS: Aspirin 81 MG TAB.CHEW PO (08:17)
[2024-08-21] MEDS: busPIRone 5 MG Tablet PO ×2 (08:18→22:24)
[2024-08-21] MEDS: Lactobacillis Acidophilus 1 CAP PO (08:18)
[2024-08-21] MEDS: DULoxetine Hcl 60 MG Capsule PO (08:18)
[2024-08-21] MEDS: Tolterodine Tartrate 4 MG CAP.SA PO (08:18)
[2024-08-21] MEDS: Pantoprazole Sodium 40 MG Tablet PO (08:18)
[2024-08-21] MEDS: Nystatin Powder 15gm Bottle 1 APPLIC TOPICAL ×2 (08:18→22:24)
[2024-08-21] MEDS: Cholecalciferol (VIT D3) 25 MCG TABLET (1,000 UNITS) PO (08:18)
[2024-08-21] MEDS: Clopidogrel Bisulfate 75 MG Tablet PO (08:18)
[2024-08-21] MEDS: Menthol/Lanolin/Calamine/Znox 113 GM Tube 1 APPLIC TOPICAL ×2 (08:25→22:24)
[2024-08-21 08:26] VITALS: BP 137/73; PULSE 82
[2024-08-21 11:49] LABS: Bedside Glucose 224 mg/dL (74-106)
[2024-08-21 14:07] VITALS: BP 151/84; PULSE 95; RESP 18; TEMP 35.9; O2SAT 95
[2024-08-21 16:49] LABS: Bedside Glucose 175 mg/dL (74-106)
[2024-08-21 21:47] LABS: Bedside Glucose 178 mg/dL (74-106)
[2024-08-21] MEDS: MELATONIN 10 MG TABLET PO (22:24)
[2024-08-21] MEDS: Oseltamivir Phosphate 30 MG Capsule PO (22:24)
[2024-08-21] MEDS: Atorvastatin Calcium 20 MG Tablet PO (22:24)
[2024-08-21] MEDS: Acetaminophen 500 MG Tablet 1000 MG PO (22:26)
[2024-08-22 05:57] LABS: Absolute Lymphocyte Count 1.53 X10^3/uL (0.83-4.51); Absolute Neutrophil Count 3.6 X10^3/uL (2.0-7.7); Basophil# 0.05 X10^3/uL; Basophil% 0.8 % (0-1); Eosinophil# 0.38 X10^3/uL; Eosinophils% 6.1 % (0-5); Hematocrit 35.4 % (37-47); Hemoglobin 11.8 g/dL (12.0-15.0); Lymphocyte # 1.53 X10^3/ul (0.83-4.51); Lymphocyte % 24.4 % (19-41); Mean Corp Hgb Conc 33.3 g/dL (32-36); Mean Corpuscular Hgb 31.7 pg (27.0-32.0); Mean Corpuscular Volume 95.2 fL (81-99); Mean Platelet Vol. 9.9 fl (6.2-12.0); Monocyte# 0.74 X10^3/uL; Monocyte% 11.8 % (0-10); NRBC Flagged by Analyzer 0 % (0-5); Neutrophil # 3.56 X10^3/uL (2.7-7.7); Neutrophil % 56.6 % (47-70); Platelet Count 263 K/mm3 (150-450); RBC Distribution Width CV 12.9 % (11.6-14.6); RBC Distribution Width SD 44.8 fl (35.1-43.9); Red Blood Count 3.72 M/mm3 (4.2-5.4); White Blood Count 6.3 K/mm3 (4.4-11.0)
[2024-08-22 06:21] LABS: Bedside Glucose 163 mg/dL (74-106)
[2024-08-22 06:28] LABS: Anion Gap 5 (5-15); BUN 21 mg/dL (7-18); BUN/Creat Ratio 25.1 RATIO (10-20); Calcium,Total 9.1 mg/dL (8.5-10.1); Chloride 105 mmol/L (98-107); Creatinine, Serum 0.84 mg/dL (0.55-1.02); EST Glomerular Filtration Rate 69 mL/min (>60); Est Glom Filt Rate - Afr Amer 84 mL/min (>60); Estimated Creatinine Clearance 47.65 ml/min; Glucose 181 mg/dL (74-106); Sodium Level 138 mmol/L (136-145)
--- NOTE | 2024-08-22 07:28 | NURSING ---
Received Phone call from Dr. Munguia Manager [employer] and gave New orders for Humalog TID 26 units for breakfast and 20 units for Lunch and super. Per Dr. 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 Munguia paged. Order read back.
[2024-08-22] MEDS: busPIRone 5 MG Tablet PO ×2 (08:05→21:43)
[2024-08-22] MEDS: Cholecalciferol (VIT D3) 25 MCG TABLET (1,000 UNITS) PO (08:05)
[2024-08-22] MEDS: dilTIAZem CD 120 MG Capsule PO ×2 (08:05→21:43)
[2024-08-22] MEDS: Pantoprazole Sodium 40 MG Tablet PO (08:05)
[2024-08-22] MEDS: Clopidogrel Bisulfate 75 MG Tablet PO (08:05)
[2024-08-22] MEDS: Gabapentin 300 MG Capsule PO ×2 (08:05→21:43)
[2024-08-22] MEDS: DULoxetine Hcl 60 MG Capsule PO (08:05)
[2024-08-22] MEDS: Tolterodine Tartrate 4 MG CAP.SA PO (08:05)
[2024-08-22] MEDS: Lactobacillis Acidophilus 1 CAP PO (08:05)
[2024-08-22] MEDS: Aspirin 81 MG TAB.CHEW PO (08:05)
[2024-08-22] MEDS: Insulin Lispro 100 UNIT/ML INSULN.PEN 26 UNIT SC (08:06)
[2024-08-22] MEDS: Insulin Glargine-YFGN 100 UNIT/ML Pen 30 UNIT SC ×2 (08:06→22:16)
[2024-08-22] MEDS: Nystatin Powder 15gm Bottle 1 APPLIC TOPICAL ×2 (08:07→21:44)
[2024-08-22] MEDS: Menthol/Lanolin/Calamine/Znox 113 GM Tube 1 APPLIC TOPICAL ×2 (08:07→21:45)
[2024-08-22 08:10] VITALS: BP 165/78; PULSE 80
[2024-08-22] MEDS: Insulin Lispro 100 UNIT/ML INSULN.PEN 20 UNIT SC ×2 (11:43→17:45)
[2024-08-22 11:55] LABS: Bedside Glucose 216 mg/dL (74-106)
[2024-08-22 16:00] VITALS: BP 157/70; PULSE 89; RESP 14; TEMP 35.8; O2SAT 95
[2024-08-22 16:55] LABS: Bedside Glucose 147 mg/dL (74-106)
[2024-08-22] MEDS: Acetaminophen 500 MG Tablet 1000 MG PO (21:43)
[2024-08-22] MEDS: Atorvastatin Calcium 20 MG Tablet PO (21:43)
[2024-08-22] MEDS: Oseltamivir Phosphate 30 MG Capsule PO (21:45)
[2024-08-22] MEDS: MELATONIN 10 MG TABLET PO (21:45)
[2024-08-22 21:51] VITALS: BP 144/65; PULSE 81; RESP 16
[2024-08-22 21:53] LABS: Bedside Glucose 141 mg/dL (74-106)
[2024-08-23 06:21] LABS: Bedside Glucose 227 mg/dL (74-106)
[2024-08-23 08:00] VITALS: BP 163/89; PULSE 92; RESP 16; TEMP 36.6; O2SAT 96
[2024-08-23] MEDS: dilTIAZem CD 120 MG Capsule PO ×2 (08:04→22:09)
[2024-08-23] MEDS: Lactobacillis Acidophilus 1 CAP PO (08:04)
[2024-08-23] MEDS: Aspirin 81 MG TAB.CHEW PO (08:04)
[2024-08-23] MEDS: busPIRone 5 MG Tablet PO ×2 (08:04→22:09)
[2024-08-23] MEDS: Nystatin Powder 15gm Bottle 1 APPLIC TOPICAL ×2 (08:05→22:11)
[2024-08-23] MEDS: Tolterodine Tartrate 4 MG CAP.SA PO (08:05)
[2024-08-23] MEDS: Cholecalciferol (VIT D3) 25 MCG TABLET (1,000 UNITS) PO (08:05)
[2024-08-23] MEDS: DULoxetine Hcl 60 MG Capsule PO (08:05)
[2024-08-23] MEDS: Clopidogrel Bisulfate 75 MG Tablet PO (08:05)
[2024-08-23] MEDS: Pantoprazole Sodium 40 MG Tablet PO (08:05)
[2024-08-23] MEDS: Insulin Glargine-YFGN 100 UNIT/ML Pen 30 UNIT SC ×2 (08:05→22:09)
[2024-08-23] MEDS: Insulin Lispro 100 UNIT/ML INSULN.PEN 26 UNIT SC (08:06)
[2024-08-23] MEDS: Menthol/Lanolin/Calamine/Znox 113 GM Tube 1 APPLIC TOPICAL ×2 (08:07→22:11)
[2024-08-23] MEDS: Gabapentin 300 MG Capsule PO ×2 (08:08→22:09)
[2024-08-23] MEDS: Insulin Lispro 100 UNIT/ML INSULN.PEN 20 UNIT SC ×2 (11:58→17:38)
[2024-08-23 12:24] LABS: Bedside Glucose 225 mg/dL (74-106)
[2024-08-23 16:47] LABS: Bedside Glucose 117 mg/dL (74-106)
[2024-08-23 18:11] VITALS: BP 151/83; PULSE 97
[2024-08-23 21:09] LABS: Bedside Glucose 132 mg/dL (74-106)
[2024-08-23] MEDS: MELATONIN 10 MG TABLET PO (22:09)
[2024-08-23] MEDS: Atorvastatin Calcium 20 MG Tablet PO (22:09)
[2024-08-23] MEDS: Acetaminophen 500 MG Tablet 1000 MG PO (22:17)
[2024-08-24 06:23] LABS: Bedside Glucose 185 mg/dL (74-106)
[2024-08-24 08:47] VITALS: BP 167/79; PULSE 91; RESP 15; TEMP 35.7; O2SAT 97
[2024-08-24] MEDS: Insulin Lispro 100 UNIT/ML INSULN.PEN 26 UNIT SC (08:54)
[2024-08-24] MEDS: Lactobacillis Acidophilus 1 CAP PO (08:55)
[2024-08-24] MEDS: Insulin Glargine-YFGN 100 UNIT/ML Pen 30 UNIT SC ×2 (08:55→21:42)
[2024-08-24] MEDS: Tolterodine Tartrate 4 MG CAP.SA PO (08:55)
[2024-08-24] MEDS: Clopidogrel Bisulfate 75 MG Tablet PO (08:55)
[2024-08-24] MEDS: DULoxetine Hcl 60 MG Capsule PO (08:55)
[2024-08-24] MEDS: Aspirin 81 MG TAB.CHEW PO (08:55)
[2024-08-24] MEDS: dilTIAZem CD 120 MG Capsule PO ×2 (08:55→21:32)
[2024-08-24] MEDS: busPIRone 5 MG Tablet PO ×2 (08:55→21:35)
[2024-08-24] MEDS: Cholecalciferol (VIT D3) 25 MCG TABLET (1,000 UNITS) PO (08:56)
[2024-08-24] MEDS: Menthol/Lanolin/Calamine/Znox 113 GM Tube 1 APPLIC TOPICAL ×2 (08:56→21:42)
[2024-08-24] MEDS: Pantoprazole Sodium 40 MG Tablet PO (08:56)
[2024-08-24] MEDS: Nystatin Powder 15gm Bottle 1 APPLIC TOPICAL ×2 (08:56→21:41)
[2024-08-24] MEDS: Gabapentin 300 MG Capsule PO ×2 (08:58→21:41)
[2024-08-24] MEDS: Labetalol 200 MG Tablet PO ×2 (09:29→21:35)
[2024-08-24 11:05] VITALS: BP 159/79
[2024-08-24 11:55] LABS: Bedside Glucose 332 mg/dL (74-106)
[2024-08-24] MEDS: Insulin Lispro 100 UNIT/ML INSULN.PEN 20 UNIT SC ×2 (11:58→17:32)
[2024-08-24 12:21] VITALS: O2SAT 95
--- NOTE | 2024-08-24 14:36 | NURSING ---
pt BPs elevated, dr arguelles udpated, new orders for labetalol & losartaan.
[2024-08-24 15:19] VITALS: BP 127/66; PULSE 85
[2024-08-24 17:21] LABS: Bedside Glucose 234 mg/dL (74-106)
[2024-08-24] MEDS: Glucerna Shake 120 ML LIQUID PO (21:31)
[2024-08-24] MEDS: MELATONIN 10 MG TABLET PO (21:35)
[2024-08-24] MEDS: Atorvastatin Calcium 20 MG Tablet PO (21:36)
[2024-08-24 21:37] VITALS: BP 137/57
[2024-08-24 21:39] LABS: Bedside Glucose 248 mg/dL (74-106)
[2024-08-25 06:14] LABS: Bedside Glucose 209 mg/dL (74-106)
[2024-08-25 08:39] VITALS: BP 129/61; PULSE 76; RESP 17; TEMP 36.2
[2024-08-25] MEDS: Aspirin 81 MG TAB.CHEW PO (08:47)
[2024-08-25] MEDS: Insulin Lispro 100 UNIT/ML INSULN.PEN 26 UNIT SC (08:47)
[2024-08-25] MEDS: Insulin Glargine-YFGN 100 UNIT/ML Pen 30 UNIT SC (08:51)
[2024-08-25] MEDS: dilTIAZem CD 120 MG Capsule PO (08:52)
[2024-08-25] MEDS: Menthol/Lanolin/Calamine/Znox 113 GM Tube 1 APPLIC TOPICAL (08:52)
[2024-08-25] MEDS: Lactobacillis Acidophilus 1 CAP PO (08:52)
[2024-08-25] MEDS: Losartan Potassium 100 MG Tablet PO (08:52)
[2024-08-25] MEDS: Nystatin Powder 15gm Bottle 1 APPLIC TOPICAL (08:53)
[2024-08-25] MEDS: Tolterodine Tartrate 4 MG CAP.SA PO (08:53)
[2024-08-25] MEDS: DULoxetine Hcl 60 MG Capsule PO (08:53)
[2024-08-25] MEDS: Clopidogrel Bisulfate 75 MG Tablet PO (08:53)
[2024-08-25] MEDS: Gabapentin 300 MG Capsule PO (08:53)
[2024-08-25] MEDS: Cholecalciferol (VIT D3) 25 MCG TABLET (1,000 UNITS) PO (08:54)
[2024-08-25] MEDS: Labetalol 200 MG Tablet PO (08:54)
[2024-08-25] MEDS: Pantoprazole Sodium 40 MG Tablet PO (08:54)
[2024-08-25 11:37] LABS: Bedside Glucose 352 mg/dL (74-106)
--- NOTE | 2024-08-25 12:31 | NURSING ---
Therapist Moiz asked this nurse to asses pt- states she is just not right- this nurse assessed pt- pt struggles to keep eyes open, pt has difficulty speaking- trouble getting her words out. Pt is able to follow- commands but is slow to respond- pt has noticeable tremors when trying to keep both arms extended- no facial drooping-This is a big change from this am. pt was up in chair- AxOx3- and spoke normally this nurse spoke to charge nurse Tierra- stroke alert called.
--- NOTE | 2024-08-25 19:20 | PCM.DC.SUM ---
Providers Date of Admission: 08/07/24 Primary Care Physician: Dr. Emily Yun MD Reason For Visit: UTI ,SHORTNESS OF BREATH Diagnosis Discharge Diagnosis (1) Debility: Status: Inactive Code(s): R53.81 - Other malaise (2) Encephalopathy acute: Status: Acute Code(s): G93.40 - Encephalopathy, unspecified (3) Cystitis: Status: Acute Code(s): N30.90 - Cystitis, unspecified without hematuria (4) Diabetes 1.5, managed as type 1: Status: Chronic Code(s): E13.9 - Other specified diabetes mellitus without complications (5) Diabetes mellitus with hyperglycemia, with long-term current use of insulin: Status: Acute Code(s): E11.65 - Type 2 diabetes mellitus with hyperglycemia; 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 Qualifiers: Diabetes mellitus type: type 2 Qualified Code(s): E11.65 - Type 2 diabetes mellitus with hyperglycemia; Z79.4 - senior living (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 (6) Bronchiectasis: Status: Chronic Code(s): J47.9 - Bronchiectasis, uncomplicated Qualifiers: Bronchiectasis type: uncomplicated Qualified Code(s): J47.9 - Bronchiectasis, uncomplicated (7) S/P lobectomy of lung: Status: Resolved Code(s): Z90.2 - Acquired absence of lung [part of] (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 Code(s): 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 (9) Left lumbar radiculopathy: Status: Acute Code(s): M54.16 - Radiculopathy, lumbar region (10) Chronic prescription benzodiazepine use: Status: Acute Code(s): Z79.899 - Other group home (current) drug therapy (11) Depression: Status: Acute Code(s): F32.9 - Major depressive disorder, single episode, unspecified Qualifiers: Depression Type: unspecified Qualified Code(s): F32.A - Depression, unspecified (12) Essential (primary) hypertension: Status: Chronic Code(s): I10 - Essential (primary) hypertension Medications at Discharge Home Medications cholecalciferol (vitamin D3) 25 mcg (1,000 unit) tablet 1,000 unit PO DAILY supplement 03/13/17 esomeprazole magnesium 40 mg capsule,delayed release 40 mg PO DAILY gerd 01/01/20 aspirin 81 mg chewable tablet 81 mg PO DAILY@0800 heart ##30 01/03/20 fesoterodine 4 mg tablet,extended release 24 hr (Toviaz) 8 mg PO DAILY bladder 10/10/21 pen needle, diabetic 32 gauge x 1/4 (BD Ultra-Fine Micro Pen Needle) #450 ea 12/14/21 blood sugar diagnostic (OneTouch Verio test strips) #100 ea 12/25/22 albuterol sulfate 90 mcg/actuation aerosol inhaler 2 puff inhalation Q6H PRN shortness of breath or wheezing #6.7 grams 03/07/23 gabapentin 300 mg capsule 300 mg PO BID pain 30 days #60 caps 06/20/23 cranberry concentrate-ascorbic acid 140 mg-100 mg capsule (Cranberry Plus Vitamin C) 1 cap PO TID Supplement 02/17/24 duloxetine 60 mg capsule,delayed release 60 mg PO QHS mood #90 caps 05/26/24 atorvastatin 20 mg tablet 20 mg PO QDAY HLD 07/01/24 Lactobacillus acidophilus 500 million cell capsule 500 mmu cells PO DAILY health supplement 07/10/24 furosemide 20 mg tablet 20 mg PO DAILY PRN edema 08/03/24 insulin glargine-yfgn 100 unit/mL (3 mL) subcutaneous pen (Semglee (insulin glargine-yfgn) Pen) 22 unit subcut QHS diabetes mellitus 08/03/24 insulin glargine-yfgn 100 unit/mL (3 mL) subcutaneous pen 20 unit (0.2 mL) subcut BID t2dm #15 mL 08/06/24 insulin lispro 100 unit/mL subcutaneous pen (Humalog KwikPen (U-100) Insulin) 15 unit (0.15 mL) subcut TIDAC T2DM #15 mL 08/06/24 insulin lispro 100 unit/mL subcutaneous pen (Humalog KwikPen (U-100) Insulin) See Protocol subcut ACHS #0 mL 08/06/24 menthol 2 % topical gel (Blue Gel) 1 applic topical TID PRN PRN Pain 1-10/Inflammation #0 grams 08/06/24 metoprolol succinate 100 mg tablet,extended release 24 hr 100 mg PO DAILY HTN #1 TAB 08/06/24 lorazepam 1 mg tablet 1 mg PO DAILY anxiety 08/07/24 metoprolol succinate 200 mg tablet,extended release 24 hr 200 mg PO DAILY HTN 08/07/24 pyridoxine (vitamin B6) 250 mg tablet 250 mg PO DAILY Suplement 08/07/24 rosuvastatin 10 mg tablet 10 mg PO QHS HLD 08/07/24 Hospital Course Operations None Procedures None Summary of Care Provided Minutes Spent on Discharge: 15 Hospital Course: 84 year old female with below past medical history hospitalized for urinary tract infection, admitted to TCU with debility, here for rehabilitation, strengthening, prior to discharge home. 08/12/2024 MRI brain showed stroke, resident treated with dual antiplatelet therapy, high intensity statin. 08/25/2024 Resident had neurologic signs and symptoms. Discharge to [facility] ED 08/25/2024 for evaluation, admission for neurologic signs and symptoms. Weight / BMI Weight Weight: 70.987 kg Body Mass Index (BMI) 28.6 ABG / Lab / Microbiology Data 08/22/24 05:09 08/22/24 05:09 Laboratory: Laboratory Results - last 24 hr 08/24/24 21:17: POC Glucose 248 H 08/25/24 05:35: POC Glucose 209 H 08/25/24 11:12: POC Glucose 352 H D/C Instructions Discharge Diet: No restrictions Discharge Activity: Return to Normal Activity, May Shower and Use Walker Weight Bearing Status: Weight bearing as tolerated Call your doctor if you observe: Fever of 101 or Higher, Inability to urinate, Inability to have a bowel movement, Shortness of breath, Dizziness, Fainting spells, Swelling in the ankles, Chest pain and Uncontrolled pain DC O2, CPAP, BIPAP Needs Home O2 Discharge instructions: No Additional Instructions: Discharge to [facility] ED 08/25/2024 for evaluation, admission for neurologic signs and symptoms. Meaningful Use Info Meaningful Use Meaningful Use Diagnoses (Choose all that apply): Ischemic CVA CVA Therapy Assessed for PT,OT and/or ST?: Yes Ischemic Stroke Antithrombotic order at d/c?: Yes Dx of Atrial fib/flutter?: No Statin Dosing Therapy Reference: STATIN DOSE THERAPY REFERENCE: * Patients > 75 years receive moderate or high dose statin therapy. * Patients 75 years or YOUNGER should receive HIGH intensity statin dose unless contraindicated. You will be required to document reason for non-treatment if statin daily dose does not meet guidelines. HIGH DOSE STATIN THERAPY DAILY Atorvastatin > than or = to 40 mg Rosuvastatin > than or = to 20 mg Amlodipine + Atorvastatin > than or = to 2.5/40 mg Ezetimibe + Simvastatin 10/80 mg Simvastatin 80mg Statins at discharge?: Yes Primary Dx Acute Ischemic CVA?: No IV thrombolytic ordered during stay?: No Reason IV thrombolytic not ordered: Treatment not Indicated Discharge Plan Admission Admit Date/Time: 08/07/24 10:06 Primary Reason for Your Visit: Debility. Attending Provider: Nikky Pastor Primary Care Provider: Emily Yun Instructions Additional Instructions / Restrictions: Discharge to [facility] ED 08/25/2024 for evaluation, admission for neurologic signs and symptoms. Discharge Orders/Prescriptions Prescriptions: No Action fesoterodine [Toviaz] 4 mg tablet extended release 24 hr 8 mg PO DAILY albuterol sulfate 90 mcg/actuation HFA aerosol inhaler 2 puff inhalation Q6H PRN (Reason: shortness of breath or wheezing) Qty: 6.7 3RF duloxetine 60 mg capsule,delayed release(DR/EC) 60 mg PO QHS Qty: 90 2RF atorvastatin 20 mg tablet 20 mg PO QDAY cholecalciferol (vitamin D3) 1,000 UNIT tablet 1,000 unit PO DAILY esomeprazole magnesium 40 MG capsule,delayed release(DR/EC) 40 mg PO DAILY aspirin 81 MG tablet,chewable 81 mg PO DAILY@0800 Qty: 30 0RF gabapentin 300 mg Capsule 300 mg PO BID 30 Days Qty: 60 0RF Lactobacillus acidophilus 500 million cell capsule 500 mmu cells PO DAILY furosemide 20 mg tablet 20 mg PO DAILY PRN (Reason: edema) insulin glargine-yfgn [Semglee(insulin glarg-yfgn)Pen] 100 unit/mL (3 mL) insulin pen 22 unit subcut QHS insulin lispro [Humalog KwikPen Insulin] 100 unit/mL Insulin Pen 15 unit subcut TIDAC Qty: 15 0RF insulin glargine-yfgn 100 unit/mL (3 mL) Insulin Pen 20 unit subcut BID Qty: 15 0RF insulin lispro [Humalog KwikPen Insulin] 100 unit/mL Insulin Pen See Protocol subcut ACHS Qty: 0 0RF Protocol: 3. Sliding Scale Insulin Med Dosing Condition: 150-189 mg/dl = 1 unit Condition: 190-229 mg/dl = 2 units Condition: 230-269 mg/dl = 3 units Condition: 270-309 mg/dl = 4 units Condition: 310-349 mg/dl = 5 units Condition: 350-399 mg/dl = 6 units Condition: 400-449 mg/dl = 7 units Condition: Greater than 449 call physician Protocol Text: - Use for Total Daily Dose of Insulin 37-55 units - Obsese, infected, or steroid patients MEDIUM DOSING ALGORITHIM menthol [Blue Gel] 2 % Gel 1 applic topical TID PRN PRN (Reason: Pain 1-10/Inflammation) Qty: 0 0RF metoprolol succinate 100 mg tablet extended release 24 hr 100 mg PO DAILY Qty: 1 0RF Rx Instructions: start on 08/06/24 lorazepam 1 mg tablet 1 mg PO DAILY metoprolol succinate 200 mg tablet extended release 24 hr 200 mg PO DAILY rosuvastatin 10 mg tablet 10 mg PO QHS pyridoxine (vitamin B6) 250 mg tablet 250 mg PO DAILY Cranberry Plus Vitamin C 140-100 mg capsule 1 cap PO TID (DME) pen needle, diabetic [BD Ultra-Fine Micro Pen Needle] 32 gauge x 1/4 needle See Rx Instructions .ROUTE .MEDSUPPLY Qty: 450 1RF Rx Instructions: 4x/day (DME) OneTouch Verio test strips Strip See Rx Instructions .ROUTE .MEDSUPPLY Qty: 100 3RF Rx Instructions: daily Referrals / Follow Up: Emily Yun MD [Primary Care Provider] - Disposition Disposition (needs filled in before D/C Order can be placed): [facility]
== END 2024-08-25 11:50 | disposition short-term general hospital (02) | DRG 690 ==
PROVIDERS: Family Medicine Geriatric Medicine; Internal Medicine Endocrinology, Diabetes & Metabolism; Admitting Provider Internal Medicine; PCP Internal Medicine; Visit Provider Internal Medicine
DX: N30.00 Acute cystitis without hematuria (principal); C7A.090 Malignant carcinoid tumor of the bronchus and lung; J47.9 Bronchiectasis, uncomplicated; I12.9 Hypertensive chronic kidney disease with stage 1 through stage 4 chronic kidney disease, or unspecified chronic kidney disease; N18.9 Chronic kidney disease, unspecified; E13.65 Other specified diabetes mellitus with hyperglycemia; F32.A Depression, unspecified; E13.22 Other specified diabetes mellitus with diabetic chronic kidney disease; D38.1 Neoplasm of uncertain behavior of trachea, bronchus and lung; E78.5 Hyperlipidemia, unspecified; K21.9 Gastro-esophageal reflux disease without esophagitis; Z79.4 Long term (current) use of insulin; G31.84 Mild cognitive impairment of uncertain or unknown etiology; M54.16 Radiculopathy, lumbar region; F41.9 Anxiety disorder, unspecified; F32.9 Major depressive disorder, single episode, unspecified; Z86.14 Personal history of Methicillin resistant Staphylococcus aureus infection; Z79.899 Other long term (current) drug therapy; Z79.82 Long term (current) use of aspirin; Z86.73 Personal history of transient ischemic attack (TIA), and cerebral infarction without residual deficits; G47.00 Insomnia, unspecified; N32.81 Overactive bladder
CPT/HCPCS: 36415; 80048; 80061; 82306; 82607; 82962; 84439; 84443; 85025; 86376; 92507; 92523; 92610; 97110; 97116; 97129; 97130; 97162; 97166; 97530; 97535; 97802; A4216

== ENCOUNTER → 2024-08-08 | Outpatient (CLI) | payer MEDICARE, OTHER, SELFPAY ==
--- NOTE | 2024-08-08 12:28 | CT_ITS ---
INDICATION: Altered mental status EXAMINATION: CT BRAIN WITH AND WITHOUT CONTRAST - CT Head or Brain WO/W Contrast Injection TECHNIQUE: Multiple axial images were obtained of the brain with and without IV contrast. A radiation dose optimization technique was used for this scan. IV Contrast dosage and agent: 50 cc Isovue 300 COMPARISON: 08/03/2024 FINDINGS: BRAIN PARENCHYMA: No intra- or extra-axial hemorrhage. No acute territorial infarction. Stable chronic lacunar infarction left basal ganglia. No intracranial mass or mass effect. Stable volume loss with low attenuation of the periventricular white matter typical of chronic small vessel disease. Posterior fossa structures are unremarkable. No abnormal contrast enhancement. CSF SPACES: Stable. No hydrocephalus. Basal cisterns are patent. CALVARIUM, SKULL BASE, PARANASAL SINUSES AND MASTOID AIR CELLS: Clear. No discrete lytic or blastic abnormalities. ORBITS: Both globes, extraocular muscles, optic nerves and retrobulbar fat appear unremarkable. CT/Brain/Head W/WO Contrast IMPRESSION: No acute intracranial findings. Electronically Signed: Alvarado Schafer MD at 16:00 EST ,
== END | disposition home or self-care (01) ==
LOC: CT 12:28
PROVIDERS: PCP Internal Medicine; Referring Provider Internal Medicine; Visit Provider Internal Medicine
DX: R41.82 Altered mental status, unspecified (principal)
CPT/HCPCS: 70470; Q9967

== ENCOUNTER → 2024-08-12 | Outpatient (CLI) | payer MEDICARE, OTHER, SELFPAY ==
--- NOTE | 2024-08-12 13:00 | MRI_ITS ---
STUDY: MRI BRAIN WITHOUT CONTRAST REASON FOR EXAM: Female, 84 years old. suspected CVA TECHNIQUE: Standardized multiplanar fat and water weighted pulse sequences were obtained. COMPARISON: 06/15/2023, CT 08/08/2024 FINDINGS: There is moderate cerebral atrophy with widening of the extra-axial spaces and ventricular dilatation. There are multiple white matter hyperintensities, distributed throughout the deep white matter tracts of the cerebral hemispheres, consistent with moderate chronic white matter ischemic changes. 2 punctate hyperintensities the pericecal white matter of the anterior left parietal lobe demonstrate faint restricted diffusion consistent with subacute infarct. Normal T2* images of the brain without demonstrated susceptibility artifact. There is no demonstrated hemosiderin stain. Normal bilateral basal ganglia. Normal thalami. There is no extra-axial fluid accumulation. Normal flow voids within the major intracranial circulation suggesting patency by spin echo criteria. Normal sella turcica, pituitary gland, infundibular stalk, optic chiasm and hypothalamus. Normal tectal plate and pineal gland. There are chronic white matter ischemic changes of the han. The midbrain and medulla are otherwise normal. Normal cerebellum. Normal basal cisterns. Normal bilateral temporal bones. Normal bilateral internal auditory canals. There are bilateral ocular lens implants with otherwise normal intraorbital contents. Normal visualized paranasal sinuses. Normal calvarium and skull base. Normal visualized soft tissue structures. Normal visualized upper cervical spine. MRI/Brain without Contrast IMPRESSION: Involutional changes of the brain, as described above. Subacute punctate infarcts of the peritoneum white matter the anterior left parietal lobe. Electronically Signed: Fransisco Cardenas MD at 23:53 EST ,
== END | disposition home or self-care (01) ==
LOC: MRI 12:01
PROVIDERS: PCP Internal Medicine; Referring Provider Internal Medicine; Visit Provider Internal Medicine
DX: I63.9 Cerebral infarction, unspecified (principal)
CPT/HCPCS: 70551

== ENCOUNTER → 2024-08-13 | Outpatient (CLI) | payer MEDICARE, OTHER, SELFPAY ==
--- NOTE | 2024-08-13 15:40 | CT_ITS ---
INDICATION: CVA EXAMINATION: CT BRAIN WITHOUT CONTRAST, CTA HEAD, AND CTA NECK TECHNIQUE: Noncontrast axial images were obtained of the brain. Subsequently, routine carotid CT angiogram protocol was performed without and with IV contrast. In addition, images were obtained of the [place]. NASCET criteria using the distal ICAs for comparison were used for evaluation of stenoses. 3D reconstructions were reviewed. The protocol utilizes one or more of the following dose reduction techniques: automated exposure control, adjustment of mA and/or kV according to patient size,and/or use of iterative reconstruction technique. IV Contrast dosage and agent: COMPARISON: FINDINGS: --CT BRAIN WITHOUT CONTRAST: BRAIN PARENCHYMA: No intra- or extra-axial hemorrhage. No evidence of acute infarct. No intracranial mass or mass effect. Bilateral white matter microangiopathic ischemic changes. Posterior fossa structures are unremarkable. CSF SPACES: Slightly prominent with mild atrophy. No hydrocephalus. Basal cisterns are patent. CALVARIUM, SKULL BASE, PARANASAL SINUSES AND MASTOID AIR CELLS: Clear. No discrete lytic or blastic abnormalities. ASPECTS Score for Acute Strokes: 10 --CTA NECK: AORTIC ARCH AND BRANCHES: Normal anatomy, patent. RIGHT CCA: No occlusion, significant stenosis or dissection. RIGHT ICA: Calcific lesions at the carotid bulb and the proximal right ICA with up to 50% luminal narrowing. LEFT CCA: No occlusion, significant stenosis or dissection. LEFT ICA: Mildly calcified carotid bulb with less than 50% luminal stenosis.. RIGHT VERTEBRAL ARTERY: Hypoplastic with segmental occlusions. LEFT VERTEBRAL ARTERY: No occlusion, significant stenosis or dissection. NECK SOFT TISSUES: Unremarkable. --CTA HEAD: --Anterior circulation: ICAs: No significant stenosis at the intracranial/visualized segments. ACAs: No significant stenosis at the visualized segments. ACOM: Present. MCAs: No significant stenosis at the visualized segments. --Posterior circulation: PCOMs: Patent bilaterally. beck tender: Nonvisualization of the bilateral P1 segments. BASILAR ARTERY: No significant stenosis. VERTEBRAL ARTERIES: Mildly calcified at the intradural/visualized segments. No evidence of intracranial aneurysm or vascular malformation. 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 Calcifications at the carotid bulbs, right more than left. Electronically Signed: London Rose DO at 17:46 EST ,
== END | disposition home or self-care (01) ==
LOC: CT 15:37
PROVIDERS: PCP Internal Medicine; Visit Provider Family Medicine Geriatric Medicine
DX: I63.541 Cerebral infarction due to unspecified occlusion or stenosis of right cerebellar artery (principal)
CPT/HCPCS: 70496; 70498; Q9967

== ENCOUNTER 2024-08-25 11:53 | Inpatient (IN) | payer MEDICARE, OTHER, SELFPAY ==
[2024-08-25] VITALS (11 sets, daily range): BP systolic 111–140; BP diastolic 47–94; PULSE 74–87; RESP 16–19; TEMP 36.3–36.8; O2SAT 93–96; BMI 31.0; BMI 27.8
--- NOTE | 2024-08-25 11:50 | CT_ITS ---
STUDY: STROKE PROTOCOL CT BRAIN WITHOUT CONTRAST REASON FOR EXAM: Female, 84 years old. stroke alert RADIATION DOSAGE (If Supplied By Facility): CTDIvol = ( ) mGy, DLP = ( ) mGycm TECHNIQUE: Transaxial CT imaging of the brain was performed without administration of intravenous contrast material. Individualized dose optimization techniques were used for this CT. COMPARISON: Head CT dated August 08, 2024, August 03, 2024, July 10, 2024. FINDINGS: Major intracranial venous sinuses: No abnormal hyperdensity MCA and basilar arteries assessment: No abnormal hyperdensity No visualized extra-axial fluid collection or subdural hemorrhage. Normal soft tissue structures. Normal calvarium. There is mild cerebral atrophy with widening of the extra-axial spaces and ventricular dilatation. There are moderate areas of decreased attenuation within the white matter tracts of the supratentorial brain, consistent with microvascular disease changes. Normal basal ganglia and thalami. Normal brainstem. Normal cerebellum. There is no demonstrated sulcal effacement or parenchymal edema. There is no intracranial hemorrhage. There are no findings of an acute ischemic infarction. Normal visualized paranasal sinuses. ASPECTS Score for Acute Strokes: 10 CT/STROKE Brain/Head without Cont IMPRESSION: 1. Chronic ischemic and involutional changes of the brain. 2. Concern for stroke/positive symptomatology should be further evaluated with CT brain perfusion/CTA or MRI of the brain for further assessment. N.B. : The above Results were Read Back by Steve Ruvalcaba MD to Tristan Alvares MD, and understanding confirmed on 08/25/2024 12:09:30 (ET). Electronically Signed: Steve Ruvalcaba MD at 12:10 EST Reading Location ID and State: [facility] / [place] , Service support ,
--- NOTE | 2024-08-25 11:55 | CT_ITS ---
STUDY: CTA HEAD AND NECK WITH CONTRAST REASON FOR EXAM: Female, 84 years old. stroke alert RADIATION DOSAGE (If Supplied By Facility): CTDIvol = ( 20.03 ) mGy, DLP = ( 716.85 ) mGycm TECHNIQUE: CT angiography was performed with a multi-detector CT scanner. Data acquisition was obtained from the skull base through the vertex following intravenous administration of IV 100mL Isovue-[id number]. MIP images were reconstructed from the axial data set. Post-processing of the angiographic images was performed, with multiplanar reformation and 3D reconstruction. Individualized dose optimization techniques were used for this CT. COMPARISON: CTA of the head and neck dated August 13, 2024. Head CT dated August 25, 2024. FINDINGS: Normal bilateral petrous carotid arteries. There is calcified plaque formation of the right cavernous carotid artery, with a mild stenosis (less than 50%). There is calcified plaque formation of the left cavernous carotid artery, with a mild stenosis (less than 50%). Normal right A1 segments of the anterior cerebral artery. Normal left A1 segments of the anterior cerebral artery. Normal intact anterior communicating artery (ACOM). Normal bilateral A2 segments of the anterior cerebral arteries. Normal right M1 and M2 segments of the middle cerebral arteries, with a normal M1 bifurcation. Normal left M1 and M2 segments of the middle cerebral arteries, with a normal M1 bifurcation. There is a persistent origin of the right posterior cerebral artery with absence of the posterior communicating artery (PCOM). There is a persistent origin of the left posterior cerebral artery with absence of the posterior communicating artery (PCOM). There is a small atretic right vertebral artery with a dominant left vertebral artery. There is severe atherosclerotic stenosis due to calcified plaque in the most distal aspect of the intracranial segment of the right vertebral artery. Moderate atherosclerotic plaque with 60% luminal stenosis is present in the distal aspect of the left intracranial vertebral artery with normal proximal and distal to this region. Normal basilar artery with a normal basilar bifurcation. The visualized bilateral superior cerebellar (SCA) arteries are normal. Normal bilateral P1, P2 and visualized P3 segments of the posterior cerebral arteries. There is no demonstrated aneurysm of the [place] of [place]. No demonstrated thrombus or occlusion or hemodynamically significant stenosis of the major intracranial arteries. Fully patent and normal enhancement of the major intracranial venous sinuses, with no evidence of venous sinus thrombosis or occlusion. NECK CTA: AORTIC ARCH: There is atherosclerotic calcific plaque formation of the aortic arch and great vessels arising from the aortic arch, without a hemodynamically significant stenosis. There is a normal origin of the brachiocephalic, left common carotid, and left subclavian arteries. Normal origins of the brachiocephalic, left common carotid, and left subclavian arteries. RIGHT CAROTID ARTERIES: Normal right common carotid artery (CCA). There is extensive atherosclerotic plaque formation with severe narrowing of the right carotid bulb with a hemodynamically significant stenosis. There is extensive atherosclerotic plaque formation of the origin of the right internal carotid artery with an estimated stenosis of greater than 70%. With greater than 70% narrowing of the vessel. Normal visualized cervical portion of the right internal carotid artery. Normal origin of the right external carotid artery (ECA). LEFT CAROTID ARTERIES: Normal left common carotid artery (CCA). There is mild atherosclerotic plaque formation with minimal narrowing of the left carotid bulb. Normal origin of the left internal carotid (ICA) artery without a hemodynamically significant stenosis. Normal visualized cervical portion of the left internal carotid artery. Normal origin of the left external carotid artery (ECA). VERTEBRAL ARTERIES: There is enhancement within the bilateral vertebral arteries with a small right vertebral artery, and a dominant left vertebral artery. No demonstrated vertebral artery thrombus or occlusion or dissection. CT/STROKE CTA Head AND Neck W/Con IMPRESSION: No demonstrated large vessel occlusion (LVO) 1. Head CTA: Moderate to severe atherosclerotic plaque and stenosis of the distal aspect of the bilateral intracranial vertebral arteries, right greater than left. 2. There is no demonstrated aneurysm of the [place] of [place]. No demonstrated thrombus or occlusion or hemodynamically significant stenosis of the major intracranial arteries. Fully patent and normal enhancement of the major intracranial venous sinuses, with no evidence of venous sinus thrombosis or occlusion. 3. Neck CTA: Severe atherosclerotic plaque and stenosis at the origin of the right internal carotid artery of the neck. Consultation and assessment by vascular surgery is recommended 4. CT Brain Perfusion and/or MRI of the brain can be obtained for small infarcts and perforating vessel disease not detected by CT or CTA. N.B. : The above Results were Read Back by Steve Ruvalcaba MD to Tristan Alvares MD, and understanding confirmed on 08/25/2024 12:38:25 (ET). Electronically Signed: Steve Ruvalcaba MD at 12:40 EST ,
--- NOTE | 2024-08-25 11:55 | EKG12_ITS ---
Test Reason : STROKE TEAM Blood Pressure : */* mmHG Vent. Rate : 78 BPM Atrial Rate : 78 BPM P-R Int : 252 ms QRS Dur : 92 ms QT Int : 424 ms P-R-T Axes : 70 -11 93 degrees QTcB Int : 483 ms Sinus rhythm with 1st degree A-V block Nonspecific ST and T wave abnormality Abnormal ECG Confirmed by RONDA SEPULVEDA, SIDDHARTHA ([id number]), food editor ANDRIY MOULTON ([id number]) on 08/26/2024 9:21:36 AM Referred By: Confirmed By: SIDDHARTHA BOND MD
[2024-08-25 12:10] LABS: Absolute Lymphocyte Count 1.24 X10^3/uL (0.83-4.51); Basophil# 0.05 X10^3/uL; Basophil% 0.5 % (0-1); Eosinophils% 2.8 % (0-5); Hematocrit 33.7 % (37-47); Hemoglobin 11.5 g/dL (12.0-15.0); Lymphocyte # 1.24 X10^3/ul (0.83-4.51); Lymphocyte % 11.8 % (19-41); Mean Corp Hgb Conc 34.1 g/dL (32-36); Mean Corpuscular Hgb 32.2 pg (27.0-32.0); Mean Corpuscular Volume 94.4 fL (81-99); Monocyte# 0.92 X10^3/uL; Monocyte% 8.7 % (0-10); NRBC Flagged by Analyzer 0 % (0-5); Neutrophil % 75.8 % (47-70); Platelet Count 278 K/mm3 (150-450); RBC Distribution Width CV 12.9 % (11.6-14.6); RBC Distribution Width SD 44.3 fl (35.1-43.9); Red Blood Count 3.57 M/mm3 (4.2-5.4); White Blood Count 10.6 K/mm3 (4.4-11.0)
--- NOTE | 2024-08-25 12:10 | EDS_ITS ---
HPI History of Present Illness Chief Complaint: Stroke Alert Detail of Chief Complaint: Patient presents from TCU as a stroke alert. Onset was 11:30 AM. She had Informant: patient and other (Nurse from TCU.) Limited: other (Patient with debility, generalized weakness and slow to response. Per review of complaints she has history of encephalopathy that was caused by UTI.) Onset/Context/Timing Onset: Today and Hours Context: Sudden Onset Timing: Continuous Quality and Location: Positive for Expressive Aphasia Onset: 11:30 AM Current Severity: Mild Maximum Severity: Mild Worsened by: Nothing Relieved by: Nothing Narrative Narrative: Patient is a an 84-year-old woman. She was admitted to TCU for debility, UTI, encephalopathy. The H&P was performed on August [address] Dr. Yo's note that he spoke to her about her new stroke. She was placed on aspirin 81 mg, Plavix 75 mg daily. Discussed also use of anticholesterol medication. Patient is awake but not alert. She is slow to respond. Her words are not slurred. She is having trouble saying things. Patient was examined in the CT room since she went straight from TCU to radiology. Stroke alert was initiated. Prior similar symptoms: No Recent Illness/Hospitalization: Yes [facility] Medical History Abnormal finding on thyroid function test Hypoxia Debility Chronic prescription benzodiazepine use Acute ischemic stroke Diabetes mellitus with hyperglycemia, with long-term current use of insulin Wears glasses MRSA infection History of Clostridium difficile infection Cancer Thyroid disease Achilles tendinitis Insulin dependent diabetes mellitus Walker as ambulation aid Arthritis Bladder disease Easy bruising Injury of back Back pain Unsteady gait Dietary restriction History of hiatal hernia Gastric reflux Non-smoker Chronic cough Hoarseness Shortness of breath on exertion Leg cramps History of edema History of echocardiogram History of stress test Left lumbar radiculopathy Fatigue Overweight (BMI 25.0-29.9) Migraine without aura, not intractable, without status migrainosus 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 disease History of ischemic stroke Macular degeneration 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 Acute gastritis Enlargement of lymph nodes Migraine Restless legs Depression Anxiety GERD (gastroesophageal reflux disease) Accelerated essential hypertension Essential (primary) hypertension Acute chest pain Home Medications ?Medication ?Instructions ?Recorded ?Last Taken ?Type cholecalciferol (vitamin D3) 25 1,000 unit PO DAILY supplement 03/13/17 06/13/23 History mcg (1,000 unit) tablet esomeprazole magnesium 40 mg 40 mg PO DAILY gerd 01/01/20 06/13/23 History capsule,delayed release aspirin 81 mg chewable tablet 81 mg PO DAILY@0800 heart ##30 01/03/20 05/28/24 Rx fesoterodine 4 mg tablet,extended 8 mg PO DAILY bladder 10/10/21 Unknown History release 24 hr (Toviaz) pen needle, diabetic 32 gauge x #450 ea 12/14/21 Unknown Rx 1/4 (BD Ultra-Fine Micro Pen Needle) blood sugar diagnostic (OneTouch #100 ea 12/25/22 Unknown Rx Verio test strips) albuterol sulfate 90 mcg/actuation 2 puff inhalation Q6H PRN 03/07/23 Unknown Rx aerosol inhaler shortness of breath or wheezing #6.7 grams gabapentin 300 mg capsule 300 mg PO BID pain 30 days #60 caps 06/20/23 Unknown Rx cranberry concentrate-ascorbic 1 cap PO TID Supplement 02/17/24 Unknown History acid 140 mg-100 mg capsule (Cranberry Plus Vitamin C) duloxetine 60 mg capsule,delayed 60 mg PO QHS mood #90 caps 05/26/24 Unknown Rx release atorvastatin 20 mg tablet 20 mg PO QDAY HLD 07/01/24 Unknown History Lactobacillus acidophilus 500 500 mmu cells PO DAILY health 07/10/24 Unknown History million cell capsule supplement furosemide 20 mg tablet 20 mg PO DAILY PRN edema 08/03/24 08/02/24 History insulin glargine-yfgn 100 unit/mL 22 unit subcut QHS diabetes 08/03/24 Unknown History (3 mL) subcutaneous pen (Semglee mellitus (insulin glargine-yfgn) Pen) insulin glargine-yfgn 100 unit/mL 20 unit (0.2 mL) subcut BID t2dm 08/06/24 08/07/24 Rx (3 mL) subcutaneous pen #15 mL insulin lispro 100 unit/mL 15 unit (0.15 mL) subcut TIDAC 08/06/24 Unknown Rx subcutaneous pen (Humalog KwikPen T2DM #15 mL (U-100) Insulin) insulin lispro 100 unit/mL See Protocol subcut ACHS #0 mL 08/06/24 Unknown Rx subcutaneous pen (Humalog KwikPen (U-100) Insulin) menthol 2 % topical gel (Blue Gel) 1 applic topical TID PRN PRN Pain 08/06/24 Unknown Rx 1-10/Inflammation #0 grams metoprolol succinate 100 mg 100 mg PO DAILY HTN #1 TAB 08/06/24 Unknown Rx tablet,extended release 24 hr lorazepam 1 mg tablet 1 mg PO DAILY anxiety 08/07/24 Unknown History metoprolol succinate 200 mg 200 mg PO DAILY HTN 08/07/24 Unknown History tablet,extended release 24 hr pyridoxine (vitamin B6) 250 mg 250 mg PO DAILY Suplement 08/07/24 Unknown History tablet rosuvastatin 10 mg tablet 10 mg PO QHS HLD 08/07/24 Unknown History Allergy/AdvReac Type Severity Reaction Status Date / Time adhesive tape Allergy Hives/Rash Verified 08/25/24 12:10 ciprofloxacin (From Cipro) Allergy Photosensitivity Verified 08/25/24 12:10 & dermatitis pioglitazone (From Actos) Allergy Unknown Verified 08/25/24 12:10 codeine AdvReac Upset Verified 08/25/24 12:10 Stomach ibandronate sodium (From AdvReac GI Verified 08/25/24 12:10 Boniva) upset/esophageal burning ibuprofen AdvReac GI upset Verified 08/25/24 12:10 lansoprazole AdvReac Diarrhea Verified 08/25/24 12:10 metformin AdvReac Diarrhea Verified 08/25/24 12:10 miconazole (From Neosporin AdvReac Rash/Bliste Verified 08/25/24 12:10 AF) rs nabumetone (From Relafen) AdvReac GI upset Verified 08/25/24 12:10 pantoprazole (From Protonix) AdvReac Diarrhea Verified 08/25/24 12:10 sucralfate (From Carafate) AdvReac feels Verified 08/25/24 12:10 poorly Family History Father Lung cancer Colon cancer Mother Mesothelioma Hypertension Grandmother Heart disease Surgical History Hx of colonoscopy Hx of right cataract extraction Hx of left cataract extraction History of lobectomy of lung History of lung biopsy H/O endoscopy Spinal injections S/P rotator cuff repair Social History household members: spouse housing: house pets and animals: No Smoking Status: Never smoker second hand exposure: No alcohol intake: current alcohol intake frequency: holidays/special occasions only substance use type: does not use ROS ROS ED Eyes Eyes: Denies blurry vision or change in vision ENT ENT ED: Denies rhinorrhea or sore throat Cardiovascular Cardiovascular: Denies chest pain or palpitations Respiratory/Chest Respiratory/Chest: Denies cough or dyspnea Gastrointestinal Gastrointestinal: Denies abdominal pain, nausea or vomiting Musculoskeletal Musculoskeletal: Denies arthralgias or myalgias Neurologic Neurologic: Reports weakness; Denies headache(s) or paresthesias EXAM Physical Exam Const Vital Signs: 08/25/24 11:54 08/25/24 12:06 08/25/24 12:11 Temperature 97.7 F L Temperature Source Oral Pulse Rate 78 84 Respiratory Rate 16 19 H Blood Pressure 122/52 H 119/66 Blood Pressure Mean 75 83 Pulse Ox 95 96 95 Oxygen Delivery Method Room Air Room Air Room Air 08/25/24 12:30 08/25/24 13:02 Temperature Temperature Source Pulse Rate 79 74 Respiratory Rate 17 17 Blood Pressure 112/55 L 111/94 H Blood Pressure Mean 74 99 Pulse Ox 95 95 Oxygen Delivery Method Room Air Room Air Positive well nourished and well developed Constitutional Narrative: BMI is 31.0. General Appearance ED: well developed and NAD HEENT Reports moist mucous membranes atraumatic Eyes PERRL and EOMs intact bilaterally Eyes Narrative: There is no nystagmus. General Eye ED: Negative for pale conjunctiva or scleral icterus Neck no lymphadenopathy, supple and no JVD Neck Narrative: There is no carotid bruit. Resp normal respiratory effort and clear to auscultation bilaterally Cardio no murmurs Rate: regular rate Rhythm: regular rhythm Heart Sounds: S1 normal and S2 normal GI normal to inspection, nondistended, normoactive bowel sounds, soft to palpation, non-tender, non-distended and no masses Extremity normal to inspection General Extremety ED: Negative for deformity, edema or tenderness General Extremity: Negative for deformity or edema Neuro oriented x3, CN's II-XII intact bilaterally and No no sensory deficits noted Neuro Narrative: Patient reports altered sensation on the right side upper and lower extremity. [place]y Coma Scale: document GCS findings Spontaneous Obeys Commands Oriented 15 Sensorium / Orientation: Negative for alert Speech: Negative for speech normal Sensory Exam: No sensory level loss detected Psych Mood & Affect: depressed Skin no wounds General Skin Exam: Negative for jaundice Lesions: No no lesions NIHSS NIHSS Initial: 1a Level of Consciousness: 1 1b LOC Questions (Score 2 if aphasic/stupor): 0 1c LOC Commands (Only score 1st attempt): 0 2 Best Gaze (If aphasic, use reflexive mvmts.): 0 3 Visual: 0 4 Facial Palsy: 0 5 Motor Arm Right (UN = amputation/fusion): 1 5 Motor Arm Left: 1 6 Motor Leg Right: 1 6 Motor Leg Left: 1 7 Limb ataxia (Only + if out of proportion): 0 8 Sensory (Aphasia/stupor=0 or 1, coma=2): 1 9 Best Language: 1 10 Dysarthria (mute, coma=2, intubated=UN): 0 11 Extinction and Inattention (only scored if +): 0 Total Score: 7 MDM MDM MDM Narrative Medical decision making narrative: Stroke alert was called. Patient has a NIH of 7. Uncertain if the weakness she has is truly due or part of her debility. Will need to review her discharge summary and TCU notes. I did receive call from radiologist to inform me that her CAT scan is unchanged from July. Lab Data Labs: Laboratory Results - last 24 hr 08/25/24 12:00 WBC 10.6 RBC 3.57 L Hgb 11.5 L Hct 33.7 L MCV 94.4 MCH 32.2 H MCHC 34.1 RDW Std Deviation 44.3 H RDW Coeff of Win 12.9 Plt Count 278 MPV 10.0 Immature Gran % (Auto) 0.400 Neut % (Auto) 75.8 H Lymph % (Auto) 11.8 L [place] % (Auto) 8.7 Eos % (Auto) 2.8 Baso % (Auto) 0.5 Absolute Neuts (auto) 8.0 H Absolute Lymphs (auto) 1.24 Nucleated RBC % 0 PT 14.1 INR 1.1 APTT 23.0 L Sodium 135 L Potassium 4.7 Chloride 102 Carbon Dioxide 25.0 Anion Gap 8 BUN 31 H Creatinine 1.16 H Estim Creat Clear Calc 35.92 Est GFR (MDRD) Af Amer 58 L Est GFR (MDRD) Non-Af 48 L BUN/Creatinine Ratio 26.7 H Glucose 350 H Calcium 9.3 Troponin I High Sens 7 Radiography Chest X-Ray - ED: 1 View, Read by ED Physician ([id number]. There are some chronic changes and unchanged from August 03, 2024), Unchanged, Normal, Heart, Mediastinum, Bony Structures and Chronic Changes Diagnostic Testing: Clinical Impression(s) from Imaging Studies Brain CT 08/25/24 11:50 IMPRESSION: 1. Chronic ischemic and involutional changes of the brain. 2. Concern for stroke/positive symptomatology should be further evaluated with CT brain perfusion/CTA or MRI of the brain for further assessment. N.B. : The above Results were Read Back by Steve Ruvalcaba MD to Tristan Alvares MD, and understanding confirmed on 08/25/2024 12:09:30 (ET). Electronically Signed: Steve Ruvalcaba MD at 12:10 EST , ADDENDUM: 08/25/24 1217 IMPRESSION: 1. Chronic ischemic and involutional changes of the brain. 2. Concern for stroke/positive symptomatology should be further evaluated with CT brain perfusion/CTA or MRI of the brain for further assessment. N.B. : The above Results were Read Back by Steve Ruvalcaba MD to Tristan Alvares MD, and understanding confirmed on 08/25/2024 12:09:30 (ET). Electronically Signed: Steve Ruvalcaba MD at 12:10 EST , Head/Neck CTA 08/25/24 11:55 IMPRESSION: No demonstrated large vessel occlusion (LVO) 1. Head CTA: Moderate to severe atherosclerotic plaque and stenosis of the distal aspect of the bilateral intracranial vertebral arteries, right greater than left. 2. There is no demonstrated aneurysm of the [place] of [place]. No demonstrated thrombus or occlusion or hemodynamically significant stenosis of the major intracranial arteries. Fully patent and normal enhancement of the major intracranial venous sinuses, with no evidence of venous sinus thrombosis or occlusion. 3. Neck CTA: Severe atherosclerotic plaque and stenosis at the origin of the right internal carotid artery of the neck. Consultation and assessment by vascular surgery is recommended 4. CT Brain Perfusion and/or MRI of the brain can be obtained for small infarcts and perforating vessel disease not detected by CT or CTA. N.B. : The above Results were Read Back by Steve Ruvalcaba MD to Tristan Alvares MD, and understanding confirmed on 08/25/2024 12:38:25 (ET). Electronically Signed: Steve Ruvalcaba MD at 12:40 EST , ADDENDUM: 08/25/24 1247 IMPRESSION: No demonstrated large vessel occlusion (LVO) 1. Head CTA: Moderate to severe atherosclerotic plaque and stenosis of the distal aspect of the bilateral intracranial vertebral arteries, right greater than left. 2. There is no demonstrated aneurysm of the hop[place] of [place]. No demonstrated thrombus or occlusion or hemodynamically significant stenosis of the major intracranial arteries. Fully patent and normal enhancement of the major intracranial venous sinuses, with no evidence of venous sinus thrombosis or occlusion. 3. Neck CTA: Severe atherosclerotic plaque and stenosis at the origin of the right internal carotid artery of the neck. Consultation and assessment by vascular surgery is recommended 4. CT Brain Perfusion and/or MRI of the brain can be obtained for small infarcts and perforating vessel disease not detected by CT or CTA. N.B. : The above Results were Read Back by Steve Ruvalcaba MD to Tristan Alvares MD, and understanding confirmed on 08/25/2024 12:38:25 (ET). Electronically Signed: Steve Ruvalcaba MD at 12:40 EST , Management Discussion w/another healthcare provider: Hospitalist, [facility] (Spoke with Dr. Wood's [facility] neurologist. He states patient not a candidate for thrombolytic. Would readmit her and obtain MRI. He believes the stenosis is less than 70%. He also recommended metabolic workup since she has generalized weakness as well.) and Radiologist (Spoke to Dr. Ruvalcaba regarding CT without contrast and CT of the head and neck. He felt that the right internal carotid artery greater than 70% stenosis.) Stroke Documentation Questions Stroke Team Activated: Yes Reviewed Inclusion/Exclusion criteria: Yes IV Thrombolytic Administered: No No contraindications from thrombolytic administration: No Risks, Benefits, Alternatives Discussed: No Discharge Plan Triage Chief Complaint: Stroke Alert ED Provider: Tristan Alvares Dx/Rx/DC Orders Clinical Impression: Expressive aphasia, Depression, Diabetes 1.5, managed as type 1, Mild cognitive impairment, Hypertension, Hyperlipidemia, GERD (gastroesophageal reflux disease), Paresthesia of right upper and lower extremity, History of recent stroke, Generalized muscle weakness, BMI 31.0-31.9,adult Prescriptions: No Action fesoterodine [Toviaz] 4 mg tablet extended release 24 hr 8 mg PO DAILY albuterol sulfate 90 mcg/actuation HFA aerosol inhaler 2 puff inhalation Q6H PRN (Reason: shortness of breath or wheezing) Qty: 6.7 3RF duloxetine 60 mg capsule,delayed release(DR/EC) 60 mg PO QHS Qty: 90 2RF atorvastatin 20 mg tablet 20 mg PO QDAY cholecalciferol (vitamin D3) 1,000 UNIT tablet 1,000 unit PO DAILY esomeprazole magnesium 40 MG capsule,delayed release(DR/EC) 40 mg PO DAILY aspirin 81 MG tablet,chewable 81 mg PO DAILY@0800 Qty: 30 0RF gabapentin 300 mg Capsule 300 mg PO BID 30 Days Qty: 60 0RF Lactobacillus acidophilus 500 million cell capsule 500 mmu cells PO DAILY furosemide 20 mg tablet 20 mg PO DAILY PRN (Reason: edema) insulin glargine-yfgn [Semglee(insulin glarg-yfgn)Pen] 100 unit/mL (3 mL) insulin pen 22 unit subcut QHS insulin lispro [Humalog KwikPen Insulin] 100 unit/mL Insulin Pen 15 unit subcut TIDAC Qty: 15 0RF insulin glargine-yfgn 100 unit/mL (3 mL) Insulin Pen 20 unit subcut BID Qty: 15 0RF insulin lispro [Humalog KwikPen Insulin] 100 unit/mL Insulin Pen See Protocol subcut ACHS Qty: 0 0RF Protocol: 3. Sliding Scale Insulin Med Dosing Condition: 150-189 mg/dl = 1 unit Condition: 190-229 mg/dl = 2 units Condition: 230-269 mg/dl = 3 units Condition: 270-309 mg/dl = 4 units Condition: 310-349 mg/dl = 5 units Condition: 350-399 mg/dl = 6 units Condition: 400-449 mg/dl = 7 units Condition: Greater than 449 call physician Protocol Text: - Use for Total Daily Dose of Insulin 37-55 units - Obsese, infected, or steroid patients MEDIUM DOSING ALGORITHIM menthol [Blue Gel] 2 % Gel 1 applic topical TID PRN PRN (Reason: Pain 1-10/Inflammation) Qty: 0 0RF metoprolol succinate 100 mg tablet extended release 24 hr 100 mg PO DAILY Qty: 1 0RF Rx Instructions: start on 08/06/24 lorazepam 1 mg tablet 1 mg PO DAILY metoprolol succinate 200 mg tablet extended release 24 hr 200 mg PO DAILY rosuvastatin 10 mg tablet 10 mg PO QHS pyridoxine (vitamin B6) 250 mg tablet 250 mg PO DAILY Cranberry Plus Vitamin C 140-100 mg capsule 1 cap PO TID (DME) pen needle, diabetic [BD Ultra-Fine Micro Pen Needle] 32 gauge x 1/4 needle See Rx Instructions .ROUTE .MEDSUPPLY Qty: 450 1RF Rx Instructions: 4x/day (DME) OneTouch Verio test strips Strip See Rx Instructions .ROUTE .MEDSUPPLY Qty: 100 3RF Rx Instructions: daily Primary Care Provider: Emily Yun Referrals: Emily Yun MD [Primary Care Provider] - Print Language: Divehi Disposition Disposition: Acute Care [facility]
[2024-08-25 12:21] LABS: International Normalized Ratio 1.1; Prothrombin Time (Protime)PT. 14.1 SECONDS (11.7-14.9)
--- NOTE | 2024-08-25 12:29 | ED.RN ---
[facility] called for update on when doc is to see patient via telehealth. Stat line stated doc was reviewing images and would then call.
--- NOTE | 2024-08-25 12:30 | ED.RN ---
Stroke alert called by TCU at 1142. Patient arrived in at CT directly from TCU at 1149 and was checked into ED while at CT at 1154. LKW 1130. TCU BG was 352. [facility] initially contacted at 1157
[2024-08-25 12:44] LABS: Anion Gap 8 (5-15); BUN 31 mg/dL (7-18); BUN/Creat Ratio 26.7 RATIO (10-20); Calcium,Total 9.3 mg/dL (8.5-10.1); Chloride 102 mmol/L (98-107); Creatinine, Serum 1.16 mg/dL (0.55-1.02); EST Glomerular Filtration Rate 48 mL/min (>60); Est Glom Filt Rate - Afr Amer 58 mL/min (>60); Estimated Creatinine Clearance 35.92 ml/min; Glucose 350 mg/dL (74-106); Potassium 4.7 mmol/L (3.5-5.1); Sodium Level 135 mmol/L (136-145); Troponin-I HS 7 pg/mL (3.0-54.0)
--- NOTE | 2024-08-25 12:55 | RAD_ITS ---
STUDY: X-RAY CHEST REASON FOR EXAM: Female, 84 years old. Neuro deficit, acute, stroke suspected TECHNIQUE: Single AP portable view of the chest. COMPARISON: August 03, 2024 FINDINGS: COPD/emphysematous changes. No demonstrated consolidation. Redemonstration of moderate interstitial fibrotic changes of the lungs. There is no demonstrated pleural abnormality. Normal size heart. Normal mediastinum and loree. Normal visualized pulmonary arteries. There is atherosclerotic calcification of the aortic arch with tortuosity. There are diffuse degenerative changes of the visualized thoracic spine. Normal visualized ribs, clavicles, and shoulders. There is no demonstrated abnormality of the visualized soft tissue structures of the upper abdomen. RAD/Chest 1 View IMPRESSION: 1. COPD/interstitial lung disease Electronically Signed: Steve Ruvalcaba MD at 14:00 EST ,
--- NOTE | 2024-08-25 13:02 | ED.RN ---
Per Dr. Alvares, NIHs can be every 4 hr
--- NOTE | 2024-08-25 13:57 | HP.PCM.HOS_ITS ---
HPI - General General Date of Admission: 08/25/24 Date of Service: 08/25/24 Chief Complaint: Stroke team and TCU HPI Narrative CHRISTINA IVORY, is a 84 F who presented to the emergency department at [facility] on 08/25/2024 due to stroke team being called in the transitional care unit. Patient was recently admitted to [facility] from 08/03/2024 through 08/06/2024 and discharged to the transitional care unit on the . At that time she was admitted for debility, urinary tract infection and encephalopathy. A stroke team was called in the transitional care unit for development of expressive aphasia as well as some right-sided weakness and she developed right facial droop in the emergency department. Her indicated these were new findings. NIH in the emergency department was 7 and [facility] neurology was contacted and recommended against tenecteplase noting she was not a candidate for thrombolytic. Vital signs on presentation showed a temperature of 97.7, heart rate 78, blood pressure is 122/52, heart rate was 78, blood pressure was 95% on room air. CBC shows a mild stable anemia with a hemoglobin of 11.5 but was otherwise fairly unremarkable. Coags were unremarkable. Chemistry panel showed mild hyponatremia with sodium of 135 and a slightly elevated serum creatinine 1.16 with a baseline of 0.7-0.9. Her blood sugar was markedly elevated at 350. Troponin was 7. EKG was unchanged from previous. Her UA shows leuk esterase but and greater than 100 white cells but no bacteria. Her urine did look infected in the last hospitalization and was cultured on 08/06/2024 and only showed yeast. Urine culture was ordered and pending. CT the brain showed chronic ischemic involutional changes but was otherwise unremarkable. CTA of the head and neck demonstrated no aneurysm, severe atherosclerotic plaque and stenosis of the origin of the right internal carotid artery however when compared to her CTA of the head neck that was done on 08/13/2024 this is different. The neurologist reviewed the data and did not feel that there was significant stenosis. Given her NIH of 7 and per neurology recommendations she was admitted for further workup. [facility] Medical History Abnormal finding on thyroid function test Hypoxia Debility Chronic prescription benzodiazepine use Acute ischemic stroke Diabetes mellitus with hyperglycemia, with long-term current use of insulin Wears glasses MRSA infection History of Clostridium difficile infection Cancer Thyroid disease Achilles tendinitis Insulin dependent diabetes mellitus Walker as ambulation aid Arthritis Bladder disease Easy bruising Injury of back Back pain Unsteady gait Dietary restriction History of hiatal hernia Gastric reflux Non-smoker Chronic cough Hoarseness Shortness of breath on exertion Leg cramps History of edema History of echocardiogram History of stress test Left lumbar radiculopathy Fatigue Overweight (BMI 25.0-29.9) Migraine without aura, not intractable, without status migrainosus 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 disease History of ischemic stroke Macular degeneration 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 Acute gastritis Enlargement of lymph nodes Migraine Restless legs Depression Anxiety GERD (gastroesophageal reflux disease) Accelerated essential hypertension Essential (primary) hypertension Acute chest pain Home Medications ?Medication ?Instructions ?Recorded ?Last Taken ?Type cholecalciferol (vitamin D3) 25 1,000 unit PO DAILY supplement 03/13/17 06/13/23 History mcg (1,000 unit) tablet esomeprazole magnesium 40 mg 40 mg PO DAILY gerd 01/01/20 06/13/23 History capsule,delayed release aspirin 81 mg chewable tablet 81 mg PO DAILY@0800 heart ##30 01/03/20 05/28/24 Rx fesoterodine 4 mg tablet,extended 8 mg PO DAILY bladder 10/10/21 Unknown History release 24 hr (Toviaz) pen needle, diabetic 32 gauge x #450 ea 12/14/21 Unknown Rx 1/4 (BD Ultra-Fine Micro Pen Needle) blood sugar diagnostic (OneTouch #100 ea 12/25/22 Unknown Rx Verio test strips) albuterol sulfate 90 mcg/actuation 2 puff inhalation Q6H PRN 03/07/23 Unknown Rx aerosol inhaler shortness of breath or wheezing #6.7 grams gabapentin 300 mg capsule 300 mg PO BID pain 30 days #60 caps 06/20/23 Unknown Rx cranberry concentrate-ascorbic 1 cap PO TID Supplement 02/17/24 Unknown History acid 140 mg-100 mg capsule (Cranberry Plus Vitamin C) duloxetine 60 mg capsule,delayed 60 mg PO QHS mood #90 caps 05/26/24 Unknown Rx release atorvastatin 20 mg tablet 20 mg PO QDAY HLD 07/01/24 Unknown History Lactobacillus acidophilus 500 500 mmu cells PO DAILY health 07/10/24 Unknown History million cell capsule supplement furosemide 20 mg tablet 20 mg PO DAILY PRN edema 08/03/24 08/02/24 History insulin glargine-yfgn 100 unit/mL 22 unit subcut QHS diabetes 08/03/24 Unknown History (3 mL) subcutaneous pen (Semglee mellitus (insulin glargine-yfgn) Pen) insulin glargine-yfgn 100 unit/mL 20 unit (0.2 mL) subcut BID t2dm 08/06/24 08/07/24 Rx (3 mL) subcutaneous pen #15 mL insulin lispro 100 unit/mL 15 unit (0.15 mL) subcut TIDAC 08/06/24 Unknown Rx subcutaneous pen (Humalog KwikPen T2DM #15 mL (U-100) Insulin) insulin lispro 100 unit/mL See Protocol subcut ACHS #0 mL 08/06/24 Unknown Rx subcutaneous pen (Humalog KwikPen (U-100) Insulin) menthol 2 % topical gel (Blue Gel) 1 applic topical TID PRN PRN Pain 08/06/24 Unknown Rx 1-10/Inflammation #0 grams metoprolol succinate 100 mg 100 mg PO DAILY HTN #1 TAB 08/06/24 Unknown Rx tablet,extended release 24 hr lorazepam 1 mg tablet 1 mg PO DAILY anxiety 08/07/24 Unknown History metoprolol succinate 200 mg 200 mg PO DAILY HTN 08/07/24 Unknown History tablet,extended release 24 hr pyridoxine (vitamin B6) 250 mg 250 mg PO DAILY Suplement 08/07/24 Unknown History tablet rosuvastatin 10 mg tablet 10 mg PO QHS HLD 08/07/24 Unknown History Allergy/AdvReac Type Severity Reaction Status Date / Time shrimp Allergy Unknown unknown Verified 08/25/24 17:09 adhesive tape Allergy Hives/Rash Verified 08/25/24 12:10 ciprofloxacin (From Cipro) Allergy Photosensitivity Verified 08/25/24 12:10 & dermatitis pioglitazone (From Actos) Allergy Unknown Verified 08/25/24 12:10 codeine AdvReac Upset Verified 08/25/24 12:10 Stomach ibandronate sodium (From AdvReac GI Verified 08/25/24 12:10 Boniva) upset/esophageal burning ibuprofen AdvReac GI upset Verified 08/25/24 12:10 lansoprazole AdvReac Diarrhea Verified 08/25/24 12:10 metformin AdvReac Diarrhea Verified 08/25/24 12:10 miconazole (From Neosporin AdvReac Rash/Bliste Verified 08/25/24 12:10 AF) rs nabumetone (From Relafen) AdvReac GI upset Verified 08/25/24 12:10 pantoprazole (From Protonix) AdvReac Diarrhea Verified 08/25/24 12:10 sucralfate (From Carafate) AdvReac feels Verified 08/25/24 12:10 poorly Family History Father Lung cancer Colon cancer Mother Mesothelioma Hypertension Grandmother Heart disease Surgical History Hx of colonoscopy Hx of right cataract extraction Hx of left cataract extraction History of lobectomy of lung History of lung biopsy H/O endoscopy Spinal injections S/P rotator cuff repair Social History household members: spouse housing: house pets and animals: No Smoking Status: Never smoker second hand exposure: No alcohol intake: current alcohol intake frequency: holidays/special occasions only substance use type: does not use ROS Review of Systems ROS Unobtainable: other Details: Unable to obtain as patient having significant issues with expressive aphasia Vital Signs Vital Signs Vital Signs: 08/25/24 11:54 08/25/24 12:06 08/25/24 12:11 Temperature 97.7 F L Temperature Source Oral Pulse Rate 78 84 Respiratory Rate 16 19 H Blood Pressure 122/52 H 119/66 Blood Pressure Mean 75 83 Pulse Ox 95 96 95 Oxygen Delivery Method Room Air Room Air Room Air 08/25/24 12:30 08/25/24 13:02 Temperature Temperature Source Pulse Rate 79 74 Respiratory Rate 17 17 Blood Pressure 112/55 L 111/94 H Blood Pressure Mean 74 99 Pulse Ox 95 95 Oxygen Delivery Method Room Air Room Air Weight Weight: 77 kg Body Mass Index (BMI) 31.0 Physical Exam Const alert; Negative for no apparent distress or healthy appearing Constitutional Narrative: Overweight, elderly, white female, lying in bed, follows commands but significant expressive aphasia, at bedside, does not appear toxic, seems distressed about language issues General Appearance: cooperative HEENT normocephalic, head/scalp atraumatic and moist oral mucous membranes HEENT Narrative: Mallampati 2, no thrush, hearing seems to be grossly normal Eyes PERRL, EOMs intact bilaterally and conjunctivae normal Eyes Narrative: No scleral icterus Neck no lymphadenopathy, supple and no carotid bruits Neck Narrative: Trachea midline, no thyroid enlargement Resp normal respiratory effort, no use of accessory muscles and clear to auscultation bilaterally Auscultation: Negative for rales, rhonchi or wheezes Cardio regular rate, regular rhythm, S1 normal heart sound, S2 normal heart sound, no murmurs, no rub, no gallops and no clicks GI normal to inspection, nondistended, normoactive bowel sounds, soft to palpation and non-tender Extremity no clubbing, cyanosis or edema Extremity Narrative: 2+ pedal pulses, 2+ radial pulses Skin Skin Narrative: Skin intact without any significant lesions Neuro No CN's II-XII intact bilaterally Neuro Narrative: Right-sided facial droop, her sensory appears to be intact however difficult to tell with effects of aphasia being present, seems to follow commands consistently, right-sided weakness greater than left, decreased control over right lower extremity with [id number] Sensorium / Orientation: awake and alert Coordination / Balance: Negative for [id number] test normal Psych Psych Narrative: Seems mildly anxious but overall assessment difficult due to her expressive aphasia Results Lab / Micro Data 08/25/24 12:00 08/25/24 12:00 Labs: Laboratory Results - last 24 hr 08/25/24 12:00: WBC 10.6, RBC 3.57 L, Hgb 11.5 L, Hct 33.7 L, MCV 94.4, MCH 32.2 H, MCHC 34.1, RDW Std Deviation 44.3 H, RDW Coeff of Win 12.9, Plt Count 278, MPV 10.0, Immature Gran % (Auto) 0.400, Neut % (Auto) 75.8 H, Lymph % (Auto) 11.8 L, [place] % (Auto) 8.7, Eos % (Auto) 2.8, Baso % (Auto) 0.5, Absolute Neuts (auto) 8.0 H, Absolute Lymphs (auto) 1.24, Nucleated RBC % 0, PT 14.1, INR 1.1, APTT 23.0 L, Sodium 135 L, Potassium 4.7, Chloride 102, Carbon Dioxide 25.0, Anion Gap 8, BUN 31 H, Creatinine 1.16 H, Estim Creat Clear Calc 35.92, Est GFR (MDRD) Af Amer 58 L, Est GFR (MDRD) Non-Af 48 L, BUN/Creatinine Ratio 26.7 H, G lucose 350 H, Calcium 9.3, Troponin I High Sens 7 Imaging Radiology Impression Brain CT 08/25/24 11:50 IMPRESSION: 1. Chronic ischemic and involutional changes of the brain. 2. Concern for stroke/positive symptomatology should be further evaluated with CT brain perfusion/CTA or MRI of the brain for further assessment. N.B. : The above Results were Read Back by Steve Ruvalcaba MD to Tristan Alvares MD, and understanding confirmed on 08/25/2024 12:09:30 (ET). Electronically Signed: Steve Ruvalcaba MD at 12:10 EST , ADDENDUM: 08/25/24 1217 IMPRESSION: 1. Chronic ischemic and involutional changes of the brain. 2. Concern for stroke/positive symptomatology should be further evaluated with CT brain perfusion/CTA or MRI of the brain for further assessment. N.B. : The above Results were Read Back by Steve Ruvalcaba MD to Tristan Alvares MD, and understanding confirmed on 08/25/2024 12:09:30 (ET). Electronically Signed: Steve Ruvalcaba MD at 12:10 EST , Head/Neck CTA 08/25/24 11:55 IMPRESSION: No demonstrated large vessel occlusion (LVO) 1. Head CTA: Moderate to severe atherosclerotic plaque and stenosis of the distal aspect of the bilateral intracranial vertebral arteries, right greater than left. 2. There is no demonstrated aneurysm of the [place]. No demonstrated thrombus or occlusion or hemodynamically significant stenosis of the major intracranial arteries. Fully patent and normal enhancement of the major intracranial venous sinuses, with no evidence of venous sinus thrombosis or occlusion. 3. Neck CTA: Severe atherosclerotic plaque and stenosis at the origin of the right internal carotid artery of the neck. Consultation and assessment by vascular surgery is recommended 4. CT Brain Perfusion and/or MRI of the brain can be obtained for small infarcts and perforating vessel disease not detected by CT or CTA. N.B. : The above Results were Read Back by Steve Ruvalcaba MD to Tristan Alvares MD, and understanding confirmed on 08/25/2024 12:38:25 (ET). Electronically Signed: Steve Ruvalcaba MD at 12:40 EST , ADDENDUM: 08/25/24 1247 IMPRESSION: No demonstrated large vessel occlusion (LVO) 1. Head CTA: Moderate to severe atherosclerotic plaque and stenosis of the distal aspect of the bilateral intracranial vertebral arteries, right greater than left. 2. There is no demonstrated aneurysm of the [place]. No demonstrated thrombus or occlusion or hemodynamically significant stenosis of the major intracranial arteries. Fully patent and normal enhancement of the major intracranial venous sinuses, with no evidence of venous sinus thrombosis or occlusion. 3. Neck CTA: Severe atherosclerotic plaque and stenosis at the origin of the right internal carotid artery of the neck. Consultation and assessment by vascular surgery is recommended 4. CT Brain Perfusion and/or MRI of the brain can be obtained for small infarcts and perforating vessel disease not detected by CT or CTA. N.B. : The above Results were Read Back by Steve Ruvalcaba MD to Tristan Alvares MD, and understanding confirmed on 08/25/2024 12:38:25 (ET). Electronically Signed: Steve Ruvalcaba MD at 12:40 EST , Assessment & Plan Assessment/Plan (1) Expressive aphasia: (2) Right sided weakness: (3) Facial droop: (4) Abnormal urinalysis: (5) Hyperglycemia: (6) Carotid artery stenosis: PLAN: Plan Right facial droop/right upper and lower extremity weakness/expressive aphasia -NIH on admission was 7 and seems to fluctuate -Stroke order set per protocol -Will allow for permissive hypertension and hold home antihypertensives with as needed medication available -Declared not a TNK candidate per neurology -Continue aspirin -Add Plavix 75 mg daily -Transition to high intensity dose atorvastatin to 40 mg daily -Check MRI brain -No need for echocardiogram as she just had one done on 07/11/2024 that showed EF of 75% with stage I diastolic dysfunction and mid cavitary dynamic gradient of 63 mmHg -PT/OT/speech therapy consult -Case management/social work consultation--> patient was already at transitional care unit -Neuro consultation Chronic artery stenosis -Patient with several different reads on her CTA of the head and neck -Check carotid ultrasound -If significant as suggested by CTA may need vascular surgery involvement -Continue aspirin and Plavix -Continue high intensity dose statin Abnormal urinalysis -Patient had abnormal urinalysis at last hospitalization and grew yeast -Will recheck but hold off on antibiotics for now DM-2 with hyperglycemia -Blood sugars on presentation were 350 -I was called by nursing and patient will be n.p.o. due to swallowing concerns until she can be seen by speech therapy -Continue basal insulin but utilize 11 units at at bedtime instead of 22 with 50% reduction in the dose to avoid hypoglycemia -Hold home prandial insulin for now -SSI as ordered -Accu-Cheks as ordered -Patient had recent hemoglobin A1c on 08/05/2024 and was 7.2 Chronic diastolic heart failure -Stage I diastolic dysfunction echocardiogram -Takes Lasix as needed -Will hold Diabetic neuropathy -Continue home gabapentin 300 p.o. twice daily if passes for swallow eval GERD -Continue PPI Urine incontinence -Continue home medications Chronic benzo use -Patient takes 1 mg daily -Will hold for now but monitor for any signs of withdrawal Essential hypertension/hyperlipidemia -Hold antihypertensives for now and allow for permissive hypertension -Continue home statin but increase dose to 40 mg daily of atorvastatin Abnormal TSH -Patient was found to be euthyroid sick on last hospitalization -No need to reassess at this time Anxiety/depression -Hold lorazepam for now and monitor closely -Continue home duloxetine as able depending on swallow eval DVT prophylaxis -Subcu Lovenox daily CODE STATUS -Full code as verified at the time of admission with Charges/Coding Visit Charges Inpatient E&M: 00911 Init Hosp L2
--- NOTE | 2024-08-25 14:00 | ED.RN ---
New R sided facial droop noted. Dr. Alvares notified and paged Dr. Adhikari
--- NOTE | 2024-08-25 14:14 | MRI_ITS ---
We are attempting to reach an attending provider to discuss findings. An addendum with communication details will be sent when the communication is complete. STUDY: MRI BRAIN WITHOUT CONTRAST REASON FOR EXAM: Female, 84 years old. Stroke RT SIDE FLACCID, APHASIA TECHNIQUE: Standardized multiplanar fat and water weighted pulse sequences were obtained. COMPARISON: August 12, 20[address] MRI of the brain CT of the brain August 25, 2023 FINDINGS: Normal size of the ventricles and extra-axial spaces for the patient''s age. Advanced periventricular white matter ischemic change without mass effect or restricted diffusion.. Normal bilateral basal ganglia. Normal thalami. There is no extra-axial fluid accumulation. Normal flow voids within the major intracranial circulation suggesting patency by spin echo criteria. Normal sella turcica, pituitary gland, infundibular stalk, optic chiasm and hypothalamus. Normal tectal plate and pineal gland. Normal midbrain, and medulla. Increased signal intensity within the han and focal restricted diffusion in the left pontine body consistent with acute ischemia Normal cerebellum. Normal basal cisterns. Normal bilateral temporal bones. Normal bilateral internal auditory canals. Postsurgical changes of the orbits. Normal visualized paranasal sinuses. Normal calvarium and skull base. Normal visualized soft tissue structures. Normal visualized upper cervical spine. MRI/Brain without Contrast IMPRESSION: Advanced periventricular white matter ischemic changes without mass effect or restricted diffusion.. Acute lacunar infarct in left pontine body Electronically Signed: Dada Martinez MD at 19:27 EST ,
--- NOTE | 2024-08-25 14:14 | CDU_ITS ---
Reason For Study: Carotid Stenosis Rt. Velocities/BP Lt. Velocities/BP Prox CCA 107.2/11.4 cm/sec. Prox CCA 118.0/17.5 cm/sec. Mid CCA 92.5/11.4 cm/sec. Mid CCA 108.9/10.2 cm/sec. Dist CCA 93.7/11.4 cm/sec. Dist CCA 97.9/19.4 cm/sec. Prox ICA 81.4/18.8 cm/sec. Prox ICA 62.2/14.9 cm/sec. Mid ICA 112.0/13.0 cm/sec. Mid ICA 68.8/18.2 cm/sec. Dist ICA 64.1/17.7 cm/sec. Dist ICA 60.0/11.7 cm/sec. Rt. ICA/CCA = 1.2. Lt. ICA/CCA = 0.6. Prox ECA 104.7/0.0 cm/sec. Prox ECA 114.3/0.0 cm/sec. Rt. Vert. 56.5/0.0 cm/sec. Lt. Vert. 60.0/10.6 cm/sec. Right Extracranial There is homogeneous, smooth atherosclerotic plaque noted in the right common carotid artery. There is heterogeneous, irregular atherosclerotic plaque noted in the right internal carotid artery. There is homogeneous, smooth atherosclerotic plaque noted in the right external carotid artery. Antegrade flow is noted in the right vertebral artery. Left Extracranial There is homogeneous, smooth atherosclerotic plaque noted in the left common carotid artery. There is heterogeneous, irregular atherosclerotic plaque noted in the left internal carotid artery. There is heterogeneous, irregular atherosclerotic plaque noted in the left external carotid artery. Antegrade flow is noted in the left vertebral artery. Procedure Carotid Duplex [id number]. This is a Carotid Duplex examination using B-mode, color flow and specral Doppler. Exam performed portable in patient room. VL/Carotid Duplex Ultrasound Interpretation Summary Mild (<50%) stenosis right extracranial internal carotid. Mild (<50%) stenosis left extracranial internal carotid. Patent and antegrade vertebrals bilaterally. Ordering Physician: Daya Adhikari Referring Physician: Emily Yun M.D. Performed By: Barbara Lan RVT and Student
[2024-08-25 14:22] LABS: Bacteria 0 SEEN /hpf (None Seen); Mucous, Urine 0 SEEN /hpf (<or=2+)
[2024-08-25 14:34] LABS: Color, Urine Yellow (Yellow); Glucose, Dipstick 1000 mg/dl (Normal); Ketone-Dipstick Negative (Negative); Leukocyte Esterase-Dipstick 500 /ul (Negative); Nitrite-Dipstick Negative (Negative); Occult Blood-Urine 25 /ul (Negative); Protein-Dipstick 30 mg/dl (Negative); Urine Bilirubin Dipstick Negative (Negative); Urine Clarity Cloudy (Clear); Urine Urobilinogen Normal (Normal); Urine pH 6.5 (5.0 - 8.0)
[2024-08-25 14:46] LABS: White Blood Cells >100 SEEN /hpf (0-5); Yeast-Urine 4+ /hpf (None Seen)
[2024-08-25 14:47] LABS: Red Blood Cells-Urine 0-5 SEEN /hpf (0-5)
[2024-08-25 14:48] LABS: Squamous Epithelial Cells - UA 5-10 SEEN /hpf (5-10)
--- NOTE | 2024-08-25 15:56 | CM.ED ---
Social Work Reason for visit: Stroke alert Patients was at bedside, stated that he had been visiting with patient in TCU when she became weak and had difficulty speaking. stated he and patient had been looking forward to patient being discharged soon from TCU, but that he was thankful they were in the hospital when the symptoms began. Supportive listening and emotional support provided. No further needs identified at this time. Sarita Goodwin, [employer] REPA[employer]ER, SPEARER
[2024-08-25] MEDS: 0.9% Normal Saline (1000mL) 1,000 ML 75 ML IV (16:30)
[2024-08-25 17:16] LABS: Bedside Glucose 135 mg/dL (74-106)
[2024-08-25] MEDS: LORazepam 2 MG/ML Syringe 0.5 MG IV (17:45)
--- NOTE | 2024-08-25 20:28 | PCM.HOSP.N ---
Hospitalist Note I was called by radiology and she does have an acute pontine infarct noted on her MRI from 08/25/2024. Continue home aspirin with the addition of Plavix 75 mg daily and high intensity dose atorvastatin at 40 mg daily. Neuro consult pending.
[2024-08-25] MEDS: Insulin Glargine-YFGN 100 UNIT/ML Pen 11 UNIT SC (21:56)
[2024-08-25] MEDS: MENTHOL 226.8 GM JAR 1 APPLIC TOPICAL (21:57)
[2024-08-25 22:18] LABS: Bedside Glucose 140 mg/dL (74-106)
[2024-08-26] VITALS (9 sets, daily range): BP systolic 134–160; BP diastolic 55–67; PULSE 83–95; RESP 16–20; TEMP 36.4–36.8; O2SAT 92–97; BMI 27.8
[2024-08-26 05:59] LABS: Absolute Lymphocyte Count 1.33 X10^3/uL (0.83-4.51); Absolute Neutrophil Count 7.2 X10^3/uL (2.0-7.7); Basophil# 0.03 X10^3/uL; Basophil% 0.3 % (0-1); Eosinophil# 0.31 X10^3/uL; Eosinophils% 3.2 % (0-5); Hematocrit 31.7 % (37-47); Hemoglobin 10.5 g/dL (12.0-15.0); Lymphocyte # 1.33 X10^3/ul (0.83-4.51); Lymphocyte % 13.8 % (19-41); Mean Corp Hgb Conc 33.1 g/dL (32-36); Mean Corpuscular Hgb 31.3 pg (27.0-32.0); Mean Corpuscular Volume 94.6 fL (81-99); Monocyte# 0.81 X10^3/uL; Monocyte% 8.4 % (0-10); NRBC Flagged by Analyzer 0 % (0-5); Neutrophil # 7.15 X10^3/uL (2.7-7.7); Neutrophil % 73.9 % (47-70); Platelet Count 276 K/mm3 (150-450); RBC Distribution Width CV 13.1 % (11.6-14.6); RBC Distribution Width SD 44.6 fl (35.1-43.9); Red Blood Count 3.35 M/mm3 (4.2-5.4); White Blood Count 9.7 K/mm3 (4.4-11.0)
[2024-08-26 06:45] LABS: ALB/GLOB Ratio 0.9 RATIO (0.9-2.4); AST(SGOT) 20 U/L (15-37); Alanine Aminotransfer ALT/SGPT 22 U/L (13-56); Albumin, Serum 3.2 g/dL (3.2-5.0); Alkaline Phosphatase 76 U/L (45-117); Anion Gap 7 (5-15); BUN 21 mg/dL (7-18); BUN/Creat Ratio 25.9 RATIO (10-20); Calcium,Total 8.8 mg/dL (8.5-10.1); Chloride 108 mmol/L (98-107); Cholesterol 142 mg/dL (200); Creatinine, Serum 0.81 mg/dL (0.55-1.02); EST Glomerular Filtration Rate 72 mL/min (>60); Est Glom Filt Rate - Afr Amer 87 mL/min (>60); Estimated Creatinine Clearance 48.74 ml/min; Globulin 3.4 g/dL (2.2-4.2); Glucose 149 mg/dL (74-106); High Density Lipoprotein 53 mg/dL; Magnesium 1.6 mg/dL (1.6-2.6); Phosphorus 3.4 mg/dL (2.5-4.9); Potassium 3.9 mmol/L (3.5-5.1); Protein, Total 6.6 g/dL (6.4-8.2); Sodium Level 137 mmol/L (136-145); Triglycerides 192 mg/dL; Very Low Density Lipoprotein 38 mg/dL (5-40)
[2024-08-26 06:50] LABS: Bedside Glucose 152 mg/dL (74-106)
[2024-08-26] MEDS: Morphine 2 MG/ML Syringe IV ×2 (06:59→22:23)
[2024-08-26] MEDS: Insulin Lispro 100 UNIT/ML INSULN.PEN SC (11:32)
[2024-08-26] MEDS: Enoxaparin 40 MG/0.4 ML Syringe SC (11:32)
[2024-08-26 11:54] LABS: Bedside Glucose 214 mg/dL (74-106)
--- NOTE | 2024-08-26 13:26 | ECHOL_ITS ---
Reason For Study: TIA/CVA, R/O Source of emboli Procedure This was a limited 2D transthoracic echocardiogram. Complete study with Definity done 07/11/24. Left Ventricle Normal LV size. Left ventricular systolic function is normal. The left ventricular ejection fraction is 60 %. No regional wall motion abnormalities noted. Right Ventricle Normal RV size. Normal systolic function. Atria Normal left atrium. Normal right atrium. Previous negative bubble study. Mitral Valve Normal mitral valve. Tricuspid Valve Normal tricuspid valve. Pulmonic Valve Normal pulmonic valve. Great Vessels Normal aortic root. Pericardium/Pleural No pericardial effusion. MMode/2D Measurements & Calculations LVIDd: 3.1 cm IVSd: 1.2 cm Ao root diam: 2.8 cm LVIDs: 1.8 cm LVPWd: 1.3 cm RVDd: 3.0 cm FS: 40.3 % LAV(MOD-sp4): 14.5 ml LA A4 area: 9.2 cm2 LA dimension(2D): 3.1 cm RA A4 area: 10.5 cm2 ECHO/Echo, Limited Study Interpretation Summary Normal LV size. Left ventricular systolic function is normal. The left ventricular ejection fraction is 60 %. Previous negative bubble study. Ordering Physician: Christian Hollingsworth Referring Physician: Emily Yun M.D. Performed By: Karli Torre RDCS
[2024-08-26] MEDS: 0.9% Saline Lock 10 ML Syringe IV ×2 (13:57→22:22)
[2024-08-26] MEDS: Aspirin 300 MG Suppository RC (15:55)
--- NOTE | 2024-08-26 15:58 | CHAPLAIN ---
Type of Pastoral Visit _x__ Initial Visit ___ Follow-up Visit ___ On-call Visit ___ General Patient Visit ___ Spiritual Assessment ___ Family Conference ___ Bereavement ___ Rapid Response ___ Code Blue ___ Other (describe below) Pastoral Care Referral From _x__ Patient _x_ Family ___ Nurse ___ Physician ___ Thread Pulling Machine Attendant ___ Valve Liner Rubber ___ Other (describe below) Sacrament/Intervention _x__ Active listening ___ Anointing ___ Anabaptism ___ Bereavement ___ Communion ___ Sharifa exploration ___ ___ Life review _x__ Prayer ___ Reconciliation ___ Sacrament of Sick _x__ Supportive presence ___ Wedding ___ Other (describe below) Pastoral Comments patient has been seen in [facility], TCU, and now PCU after another stroke that happened yesterday; pt is welcoming and acknowledges the support needed; pt is concerned for her family who is emotional about the new developments; pt will have to start over again in rehab efforts; pt says I've told my family that we will get through this; pt says she is trying to take it as it is and now to be too worried about it; pt welcomes presence of ethylene plant helper to talk with and for the prayers given
--- NOTE | 2024-08-26 17:08 | CON.PCM.NE_ITS ---
Assessment and Plan: Stroke Assessment/Plan CHRISTINA IVORY is a 84 F with a history of HTN/HLD and multiple prior strokes (most recent 3 weeks ago on 08/04/24). While she initially appeared globally confused and weak, she now has Right hemiparesis consistent with left pontine infarct seen on MRI. While brainstem strokes are classically thought of as small vessel strokes, I will classify her stroke etiology as cryptogenic given multiple recent infarcts in different vascular territories. Recommend aspirin 81mg daily and load with clopidogrel 300mg when able to take PO. Continue aspirin 81mg and clopidogrel 75mg daily for 21 days then stop clopidogrel. Continue aspirin indefinitely. Continue physical, occupational, and speech therapy. Recommend 30 day phototypesetting equipment monitor on discharge to screen for atrial fibrillation. Recommend obtaining transthoracic echocardiogram to screen for other cardiac pathology that could be cause of embolic infarcts. I will see her again after TTE. Continue to titrate BP meds for goal <140/80. HPI Consult Data Date of Consult: 08/26/24 HPI Narrative HPI Narrative: CHRISTINA IVORY, is a 84F w/ HTN/HLD, stroke 3 yeas ago w/ residual R weakness. Recent admission 08/04/24 for acute embolic appearing infarcts in L frontal lobe. 08/25/24 acute global weakness and confusion after PT. Telestroke w/ NIHSS 2 for BLE drift. No lytics d/t recent stroke. CTA/carotid duplex w/ mild bilateral ICA stenosis. MRI w/ L pontine infarct. LDL 51A1c 7.2%. FORMERLY [facility] Medical History Abnormal finding on thyroid function test Hypoxia Debility Chronic prescription benzodiazepine use Acute ischemic stroke Diabetes mellitus with hyperglycemia, with long-term current use of insulin Wears glasses MRSA infection History of Clostridium difficile infection Cancer Thyroid disease Achilles tendinitis Insulin dependent diabetes mellitus Walker as ambulation aid Arthritis Bladder disease Easy bruising Injury of back Back pain Unsteady gait Dietary restriction History of hiatal hernia Gastric reflux Non-smoker Chronic cough Hoarseness Shortness of breath on exertion Leg cramps History of edema History of echocardiogram History of stress test Left lumbar radiculopathy Fatigue Overweight (BMI 25.0-29.9) Migraine without aura, not intractable, without status migrainosus 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 disease History of ischemic stroke Macular degeneration 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 Acute gastritis Enlargement of lymph nodes Migraine Restless legs Depression Anxiety GERD (gastroesophageal reflux disease) Accelerated essential hypertension Essential (primary) hypertension Acute chest pain Home Medications ?Medication ?Instructions ?Recorded ?Last Taken ?Type cholecalciferol (vitamin D3) 25 1,000 unit PO DAILY supplement 03/13/17 06/13/23 History mcg (1,000 unit) tablet esomeprazole magnesium 40 mg 40 mg PO DAILY gerd 01/01/20 06/13/23 History capsule,delayed release aspirin 81 mg chewable tablet 81 mg PO DAILY@0800 heart ##30 01/03/20 05/28/24 Rx fesoterodine 4 mg tablet,extended 8 mg PO DAILY bladder 10/10/21 Unknown History release 24 hr (Toviaz) pen needle, diabetic 32 gauge x #450 ea 12/14/21 Unknown Rx 1/4 (BD Ultra-Fine Micro Pen Needle) blood sugar diagnostic (OneTouch #100 ea 12/25/22 Unknown Rx Verio test strips) albuterol sulfate 90 mcg/actuation 2 puff inhalation Q6H PRN 03/07/23 Unknown Rx aerosol inhaler shortness of breath or wheezing #6.7 grams gabapentin 300 mg capsule 300 mg PO BID pain 30 days #60 caps 06/20/23 Unknown Rx cranberry concentrate-ascorbic 1 cap PO TID Supplement 02/17/24 Unknown History acid 140 mg-100 mg capsule (Cranberry Plus Vitamin C) duloxetine 60 mg capsule,delayed 60 mg PO QHS mood #90 caps 05/26/24 Unknown Rx release atorvastatin 20 mg tablet 20 mg PO QDAY HLD 07/01/24 Unknown History Lactobacillus acidophilus 500 500 mmu cells PO DAILY health 07/10/24 Unknown History million cell capsule supplement furosemide 20 mg tablet 20 mg PO DAILY PRN edema 08/03/24 08/02/24 History insulin glargine-yfgn 100 unit/mL 22 unit subcut QHS diabetes 08/03/24 Unknown History (3 mL) subcutaneous pen (Semglee mellitus (insulin glargine-yfgn) Pen) insulin glargine-yfgn 100 unit/mL 20 unit (0.2 mL) subcut BID t2dm 08/06/24 08/07/24 Rx (3 mL) subcutaneous pen #15 mL insulin lispro 100 unit/mL 15 unit (0.15 mL) subcut TIDAC 08/06/24 Unknown Rx subcutaneous pen (Humalog KwikPen T2DM #15 mL (U-100) Insulin) insulin lispro 100 unit/mL See Protocol subcut ACHS #0 mL 08/06/24 Unknown Rx subcutaneous pen (Humalog KwikPen (U-100) Insulin) menthol 2 % topical gel (Blue Gel) 1 applic topical TID PRN PRN Pain 08/06/24 Unknown Rx 1-10/Inflammation #0 grams metoprolol succinate 100 mg 100 mg PO DAILY HTN #1 TAB 08/06/24 Unknown Rx tablet,extended release 24 hr lorazepam 1 mg tablet 1 mg PO DAILY anxiety 08/07/24 Unknown History metoprolol succinate 200 mg 200 mg PO DAILY HTN 08/07/24 Unknown History tablet,extended release 24 hr pyridoxine (vitamin B6) 250 mg 250 mg PO DAILY Suplement 08/07/24 Unknown History tablet rosuvastatin 10 mg tablet 10 mg PO QHS HLD 08/07/24 Unknown History Allergy/AdvReac Type Severity Reaction Status Date / Time shrimp Allergy Unknown unknown Verified 08/25/24 17:09 adhesive tape Allergy Hives/Rash Verified 08/25/24 12:10 ciprofloxacin (From Cipro) Allergy Photosensitivity Verified 08/25/24 12:10 & dermatitis pioglitazone (From Actos) Allergy Unknown Verified 08/25/24 12:10 codeine AdvReac Upset Verified 08/25/24 12:10 Stomach ibandronate sodium (From AdvReac GI Verified 08/25/24 12:10 Boniva) upset/esophageal burning ibuprofen AdvReac GI upset Verified 08/25/24 12:10 lansoprazole AdvReac Diarrhea Verified 08/25/24 12:10 metformin AdvReac Diarrhea Verified 08/25/24 12:10 miconazole (From Neosporin AdvReac Rash/Bliste Verified 08/25/24 12:10 AF) rs nabumetone (From Relafen) AdvReac GI upset Verified 08/25/24 12:10 pantoprazole (From Protonix) AdvReac Diarrhea Verified 08/25/24 12:10 sucralfate (From Carafate) AdvReac feels Verified 08/25/24 12:10 poorly Family History Father Lung cancer Colon cancer Mother Mesothelioma Hypertension Grandmother Heart disease Surgical History Hx of colonoscopy Hx of right cataract extraction Hx of left cataract extraction History of lobectomy of lung History of lung biopsy H/O endoscopy Spinal injections S/P rotator cuff repair Social History household members: spouse housing: house pets and animals: No Smoking Status: Never smoker second hand exposure: No alcohol intake: current alcohol intake frequency: holidays/special occasions only substance use type: does not use Vital Signs Vital Signs Vital Signs: 08/25/24 18:36 08/25/24 19:10 08/25/24 20:00 Temperature 97.4 F L Temperature Source Temporal Pulse Rate 87 Pulse Strength Respiratory Rate 18 Respiratory Effort Normal Non-Labored Respiratory Depth Normal Respiratory Pattern Normal Blood Pressure 137/67 H Blood Pressure Mean 90 Blood Pressure Source Monitor Blood Pressure Position Semi-Fowlers Blood Pressure Location Right Arm Pulse Ox 93 93 Oxygen Delivery Method Room Air Room Air Room Air 08/25/24 21:32 08/25/24 22:00 08/26/24 00:56 Temperature 98.2 F 98.0 F Temperature Source Oral Oral Pulse Rate 84 86 Pulse Strength Normal (2+) Respiratory Rate 16 16 Respiratory Effort Respiratory Depth Respiratory Pattern Blood Pressure 140/60 H 134/55 H Blood Pressure Mean 86 81 Blood Pressure Source Monitor Monitor Blood Pressure Position Semi-Fowlers Semi-Fowlers Blood Pressure Location Right Arm Right Forearm Pulse Ox 96 94 Oxygen Delivery Method Room Air Room Air 08/26/24 01:05 08/26/24 04:00 08/26/24 04:45 Temperature 97.8 F Temperature Source Oral Pulse Rate 90 Pulse Strength Respiratory Rate 18 Respiratory Effort Normal Non-Labored Respiratory Depth Normal Respiratory Pattern Normal Blood Pressure 138/67 H Blood Pressure Mean 90 Blood Pressure Source Monitor Blood Pressure Position Semi-Fowlers Blood Pressure Location Right Forearm Pulse Ox 94 94 Oxygen Delivery Method Room Air Room Air Room Air 08/26/24 06:57 08/26/24 08:24 08/26/24 08:45 Temperature 97.6 F L Temperature Source Oral Pulse Rate 94 89 Pulse Strength Respiratory Rate 20 H Respiratory Effort Respiratory Depth Respiratory Pattern Blood Pressure 144/64 H 156/60 H Blood Pressure Mean 90 92 Blood Pressure Source Monitor Monitor Blood Pressure Position Semi-Fowlers Semi-Fowlers Blood Pressure Location Right Forearm Left Arm Pulse Ox 92 95 Oxygen Delivery Method Room Air Room Air 08/26/24 09:03 08/26/24 09:04 08/26/24 12:43 Temperature 98.1 F Temperature Source Oral Pulse Rate 84 Pulse Strength Normal (2+) Respiratory Rate 17 Respiratory Effort Normal Non-Labored Respiratory Depth Normal Respiratory Pattern Tachypnea Blood Pressure 139/65 H Blood Pressure Mean 89 Blood Pressure Source Monitor Blood Pressure Position Semi-Fowlers Blood Pressure Location Left Arm Pulse Ox 94 Oxygen Delivery Method Room Air Room Air 08/26/24 14:00 08/26/24 16:41 Temperature 98.0 F Temperature Source Oral Pulse Rate 95 Pulse Strength Respiratory Rate 18 Respiratory Effort Normal Non-Labored Respiratory Depth Respiratory Pattern Blood Pressure 160/64 H Blood Pressure Mean 96 Blood Pressure Source Monitor Blood Pressure Position Semi-Fowlers Blood Pressure Location Left Arm Pulse Ox 95 Oxygen Delivery Method Room Air Room Air Weight Weight: 69 kg Body Mass Index (BMI) 27.8 EEG Results Procedure Details EEG Procedure Details: CHRISTINA IVORY is a 84 year old F with a past medical history of , who presents for evaluation of Electroencephalogram on DATE at TIME NIHSS NIHSS Nursing Documentation NIHSS Nursing Documentation: NIHSS: Ischemic Stroke/TIA Start: 08/25/24 15:02 Text: For ICU Patients: NIH sroke scale at Status: Complete presentation and every 2 hours or with change in RN caregiver Freq: [id number] Protocol: Activity Type Activity Date Activity User E-sign Co-sign Detail Recorded Client Recorded Date Recorded By Document 08/25/24 15:30 FL [id number] 08/25/24 15:33 FL 08/25/24 15:30 NIH Stroke Scale [NIHSS] A score of 0 is normal or asymptomatic . Total possible score is 42. Inpatient: RN or Physician to activate a stroke alert for onset of new stroke symptoms or with NIHSS increase >/= 3 points. Following change in neurological status, NIHSS will be performed per physician order or more frequently PRN. -1a. Level of Consciousness Alert; keenly responsive -1b. LOC Questions Answers BOTH questions correctly. -1c. LOC Commands Performs both tasks correctly . -2. Best Gaze Normal -3. Visual No visual loss -4. Facial Palsy Minor paralysis (flattened nasolabial fold , asymmetry on smiling) -5a. Left Arm No drift; arm holds 90 (or 45 ) degrees for full 10 seconds -5b. Right Arm Drift; arm drifts downward but doesn?t hit the bed -6a. Left Leg No drift; leg holds 30-degree position for full 5 seconds -6b. Right Leg No effort against gravity ; leg falls to bed immediately -7. Limb Ataxia Present in 2 limbs -8. Sensory Mild-to- moderate sensory loss; -9. Best Language Severe aphasia; -10. Dysarthria Mild-to- moderate dysarthria; -11. Extinction and Inattention No abnormality -Total 11 Query Text:A score of 0 is normal or asymptomatic. Total possible score is 42 . ED: Notify Physician for NIHSS increase by > / = 3 points. Inpatient: RN or Physician to activate a stroke alert for NIHSS increase of > / = 3 points. Coma Scale [Assess] -Eye Opening Spontaneous -Motor Obeys Commands -Verbal Oriented [Total] -Coma Scale Total 15 NIHSS: Ischemic Stroke/TIA Start: 08/25/24 15:02 Text: For PCU Patients: NIH and Neuro Check every 4 Status: Active hours, PRN and with change in RN caregiver. Freq: [id number] Protocol: Activity Type Activity Date Activity User E-sign Co-sign Detail Recorded Client Recorded Date Recorded By Document 08/26/24 16:41 [id number] 08/26/24 16:48 08/26/24 16:41 NIH Stroke Scale [NIHSS] A score of 0 is normal or asymptomatic . Total possible score is 42. Inpatient: RN or Physician to activate a stroke alert for onset of new stroke symptoms or with NIHSS increase >/= 3 points. Following change in neurological status, NIHSS will be performed per physician order or more frequently PRN. -1a. Level of Consciousness Alert; keenly responsive -1b. LOC Questions Answers BOTH questions correctly. -1c. LOC Commands Performs both tasks correctly . -2. Best Gaze Normal -3. Visual No visual loss -4. Facial Palsy Normal symmetrical movements -5a. Left Arm No drift; arm holds 90 (or 45 ) degrees for full 10 seconds -5b. Right Arm Drift; arm drifts downward but doesn?t hit the bed -6a. Left Leg No drift; leg holds 30-degree position for full 5 seconds -6b. Right Leg Some effort against gravity ; -7. Limb Ataxia Present in 1 limb -8. Sensory Normal; no sensory loss -9. Best Language Mild-to- moderate aphasia; -10. Dysarthria Mild-to- moderate dysarthria; -11. Extinction and Inattention No abnormality -Total 6 Query Text:A score of 0 is normal or asymptomatic. Total possible score is 42 . ED: Notify Physician for NIHSS increase by > / = 3 points. Inpatient: RN or Physician to activate a stroke alert for NIHSS increase of > / = 3 points. Coma Scale [Assess] -Eye Opening Spontaneous -Motor Obeys Commands -Verbal Oriented [Total] -Coma Scale Total 15 Physical Exam Narrative dysarthria, RUE drift to bed w/ impaired finger tapping, RLE drift to bed. NIHSS 3 (dysartria 1, RUE 1, RLE 1) Lab / Micro Data 08/26/24 05:05 08/26/24 05:05 Labs: Laboratory Results - last 24 hr 08/25/24 16:33: POC Glucose 135 H 08/25/24 21:54: POC Glucose 140 H 08/26/24 05:05: WBC 9.7, RBC 3.35 L, Hgb 10.5 L, Hct 31.7 L, MCV 94.6, MCH 31.3, MCHC 33.1, RDW Std Deviation 44.6 H, RDW Coeff of Win 13.1, Plt Count 276, MPV 10.0, Immature Gran % (Auto) 0.400, Neut % (Auto) 73.9 H, Lymph % (Auto) 13.8 L, [place] % (Auto) 8.4, Eos % (Auto) 3.2, Baso % (Auto) 0.3, Absolute Neuts (auto) 7.2, Absolute Lymphs (auto) 1.33, Nucleated RBC % 0, Sodium 137, Potassium 3.9, Chloride 108 H, Carbon Dioxide 23.0, Anion Gap 7, BUN 21 H, Creatinine 0.81, Estim Creat Clear Calc 48.74, Est GFR (MDRD) Af Amer 87, Est GFR (MDRD) Non-Af 72, BUN/Creatinine Ratio 25.9 H, Glucose 149 H, Calcium 8.8, Phosphorus 3.4, Magnesium 1.6, Total Bilirubin 0.50, AST 20, ALT 22, Alkaline Phosphatase 76, Total Protein 6.6, Albumin 3.2, Globulin 3.4, Albumin/Globulin Ratio 0.9, Triglycerides 192, Cholesterol 142, LDL Cholesterol 51, VLDL Cholesterol 38, HDL Cholesterol 53 08/26/24 06:27: POC Glucose 152 H 08/26/24 11:28: POC Glucose 214 H Imaging Radiology Impression Brain MRI 08/25/24 14:14 IMPRESSION: Advanced periventricular white matter ischemic changes without mass effect or restricted diffusion.. Acute lacunar infarct in left pontine body Electronically Signed: Dada Martinez MD at 19:27 EST Reading Location ID and State: [facility] / [place] Tel [phone], Service support , ADDENDUM: 08/25/242017 IMPRESSION: Advanced periventricular white matter ischemic changes without mass effect or restricted diffusion.. Acute lacunar infarct in left pontine body N.B. : The above Results were Read Back by Dada Martinez MD to Daya Adhikari DO, and understanding confirmed on 08/25/2024 20:11:45 (ET). Electronically Signed: Dada Martinez MD at 19:27 EST , Carotid Duplex 08/25/24 14:14 Interpretation Summary Mild (<50%) stenosis right extracranial internal carotid. Mild (<50%) stenosis left extracranial internal carotid. Patent and antegrade vertebrals bilaterally. Ordering Physician: Onofre, Daya Referring Physician: Emily Yun M.D. Performed By: Barbara Lan RVT and Student Active Medications Active Medications Active Medications: Current Medications Generic Name Dose Route Start Last Admin Trade Name Freq PRN Reason Stop Dose Admin Acetaminophen 650 mg 08/25/24 15:02 Acetaminophen 325 Mg Tablet PO Q4H PRN PRN Pain 1-10 Or Fever>99.6 Albuterol Sulfate 2.5 mg 08/25/24 15:02 Albuterol 2.5 Mg/3 Ml Vial.Neb. INHALATION Q2H PRN PRN SOB &/OR WHEEZING Aspirin 300 mg 08/26/24 14:25 08/26/24 15:55 Aspirin 300 Mg Suppository RC 300 mg DAILY COLLINS Administration Atorvastatin Calcium 40 mg 08/26/24 10:00 08/26/24 10:26 Atorvastatin Calcium 40 Mg Tablet PO Not Given DAILY COLLINS Cholecalciferol 25 mcg 08/26/24 10:00 08/26/24 10:27 Cholecalciferol (Vit D3) 25 Mcg Tablet (1,000 Units) PO Not Given DAILY COLLINS Clopidogrel Bisulfate 75 mg 08/26/24 10:00 08/26/24 10:27 Clopidogrel Bisulfate 75 Mg Tablet PO Not Given DAILY COLLINS Duloxetine HCl 60 mg 08/25/24 22:00 08/25/24 21:56 Duloxetine Hcl 60 Mg Capsule PO Not Given QHS COLLINS Enoxaparin Sodium 40 mg 08/26/24 10:00 08/26/24 11:32 Enoxaparin 40 Mg/0.4 Ml Syringe SC 40 mg DAILY COLLINS Administration Gabapentin 300 mg 08/25/24 22:00 08/26/24 10:26 Gabapentin 300 Mg Capsule PO Not Given BID COLLINS Glucagon 1 mg 08/25/24 15:02 Glucagon 1 Mg/Ml Syringe IM X1 PRN HYPOGLYCEMIA Protocol Dextrose 250 mls @ 0 mls/hr 08/25/24 15:02 Dextrose 10%-Water IV .Q0M PRN HYPOGLYCEMIA Protocol As Directed Sodium Chloride 100 mls @ 15 mls/hr 08/25/24 15:04 IV .Q6H40M PRN SALINE FLUSH Sodium Chloride 100 mls @ 15 mls/hr 08/25/24 15:04 IV .Q6H40M PRN Saline Flush Sodium Chloride 100 mls @ 15 mls/hr 08/25/24 15:04 IV .Q6H40M PRN Additional IVPB Infusion Insulin Glargine 11 unit 08/25/24 22:00 08/25/24 21:56 Insulin Glargine-Yfgn 100 Unit/Ml Pen SC 11 unit QHS COLLINS Administration Insulin Human Lispro 0 unit 08/25/24 16:00 08/26/24 11:32 Insulin Lispro 100 Unit/Ml Insuln.Pen SC 2 unit ACHS COLLINS Administration Protocol Melatonin 3 mg 08/25/24 15:02 Melatonin 3 Mg Tablet PO QHS PRN PRN INSOMNIA Menthol 1 applic 08/25/24 20:29 08/25/24 21:57 Menthol 226.8 Gm Jar TOPICAL 1 applic TID PRN PRN Administration Pain 1-10/Inflammation Ondansetron HCl 4 mg 08/25/24 15:02 Ondansetron 4 Mg/2 Ml Vial IV Q8H PRN PRN NAUSEA/VOMITING Pantoprazole Sodium 40 mg 08/26/24 10:00 08/26/24 10:27 Pantoprazole Sodium 40 Mg Tablet PO Not Given DAILY COLLINS Senna/Docusate Sodium 2 tablet 08/25/24 15:02 Senna/Docusate Sodium 1 Tablet PO BID PRN PRN Constipation Sodium Chloride 10 - 40 ml 08/25/24 15:04 08/26/24 13:57 0.9% Saline Lock 10 Ml Syringe IV 10 ml UD PRN Administration SALINE FLUSH Tolterodine Tartrate 4 mg 08/26/24 10:00 08/26/24 10:26 Tolterodine Tartrate 4 Mg Cap.Sa PO Not Given DAILY COLLINS
[2024-08-26 17:30] LABS: Bedside Glucose 167 mg/dL (74-106)
--- NOTE | 2024-08-26 18:19 | PN.HOSP_ITS ---
Reason for Visit Reason for Visit: Diagnoses Occlusion and stenosis of unspecified carotid artery (08/25/24) Facial weakness (08/25/24) Aphasia (08/25/24) Weakness (08/25/24) Hyperglycemia, unspecified (08/25/24) Unspecified abnormal findings in urine (08/25/24) Subjective Subjective Patient was seen and examined today, I talked at length with her daughter and her who is in the room at the time of my examination. Patient is currently n.p.o. I answer several questions that the daughter had concerning her new stroke. Objective Data Objective Data Vital Signs: Vital Signs Temp Pulse Resp BP Pulse Ox O2 Del Method 98.0 F 95 18 160/64 H 95 Room Air 08/26/24 16:41 08/26/24 16:41 08/26/24 16:41 08/26/24 16:41 08/26/24 16:41 08/26/24 16:41 Oxygen Delivery Method Room Air Weight: 69 kg Body Mass Index (BMI) 27.8 Intake & Output: Intake and Output for Last 24 Hours 08/24/24 08/25/24 08/26/24 23:59 23:59 23:59 Intake Total 0 / 0 1000 / 1000 Output Total 400 / 400 Balance 0 / 0 600 / 600 Lab / Micro Data 08/26/24 05:05 08/26/24 05:05 Labs: Laboratory Results - last 24 hr 08/25/24 21:54: POC Glucose 140 H 08/26/24 05:05: WBC 9.7, RBC 3.35 L, Hgb 10.5 L, Hct 31.7 L, MCV 94.6, MCH 31.3, MCHC 33.1, RDW Std Deviation 44.6 H, RDW Coeff of Win 13.1, Plt Count 276, MPV 10.0, Immature Gran % (Auto) 0.400, Neut % (Auto) 73.9 H, Lymph % (Auto) 13.8 L, [place] % (Auto) 8.4, Eos % (Auto) 3.2, Baso % (Auto) 0.3, Absolute Neuts (auto) 7.2, Absolute Lymphs (auto) 1.33, Nucleated RBC % 0, Sodium 137, Potassium 3.9, Chloride 108 H, Carbon Dioxide 23.0, Anion Gap 7, BUN 21 H, Creatinine 0.81, Estim Creat Clear Calc 48.74, Est GFR (MDRD) Af Amer 87, Est GFR (MDRD) Non-Af 72, BUN/Creatinine Ratio 25.9 H, Glucose 149 H, Calcium 8.8, Phosphorus 3.4, Magnesium 1.6, Total Bilirubin 0.50, AST 20, ALT 22, Alkaline Phosphatase 76, Total Protein 6.6, Albumin 3.2, Globulin 3.4, Albumin/Globulin Ratio 0.9, Triglycerides 192, Cholesterol 142, LDL Cholesterol 51, VLDL Cholesterol 38, HDL Cholesterol 53 08/26/24 06:27: POC Glucose 152 H 08/26/24 11:28: POC Glucose 214 H 08/26/24 17:09: POC Glucose 167 H Radiography Diagnostic Testing: Radiology Impression Brain MRI 08/25/24 14:14 IMPRESSION: Advanced periventricular white matter ischemic changes without mass effect or restricted diffusion.. Acute lacunar infarct in left pontine body Electronically Signed: Dada Martinez MD at 19:27 EST , ADDENDUM: 08/25/242017 IMPRESSION: Advanced periventricular white matter ischemic changes without mass effect or restricted diffusion.. Acute lacunar infarct in left pontine body N.B. : The above Results were Read Back by Dada Martinez MD to Daya Adhikari DO, and understanding confirmed on 08/25/2024 20:11:45 (ET). Electronically Signed: Dada Martinez MD at 19:27 EST , Physical Exam Const alert, oriented x3 and no apparent distress General Appearance: cooperative, well kempt and well developed Orientation / Consciousness: awake, oriented to person, oriented to place and oriented to time HEENT normocephalic, head/scalp atraumatic and moist oral mucous membranes Eyes PERRL, EOMs intact bilaterally and conjunctivae normal Neck supple, no JVD, thyroid normal and no carotid bruits General: trachea midline Resp normal respiratory effort, no retractions, no use of accessory muscles and clear to auscultation bilaterally Auscultation: Negative for rales, rhonchi or wheezes Cardio regular rate, regular rhythm, S1 normal heart sound, S2 normal heart sound, no murmurs, no rub and no gallops GI normal to inspection, nondistended, normoactive bowel sounds, soft to palpation, non-tender and non-distended Extremity no clubbing, cyanosis or edema Skin no rashes or lesions noted General Skin Exam: no breakdown Neuro oriented x3 and CN's II-XII intact bilaterally Neuro Narrative: Patient has right upper extremity weakness and right lower extremity weakness as compared with the left. Patient's speech pattern is slow and halting at times. Sensorium / Orientation: awake and alert Psych affect normal Assessment & Plan Assessment/Plan (1) Right sided weakness: PLAN: Plan 1. Acute lacunar infarct in the left pontine body-patient will receive rectal aspirin until she is cleared to have oral intake. PT and OT will see the patient, she will need placement in a group home facility for inpatient rehab services. #2 expressive aphasia secondary to #1-speech therapy will see the patient, she is currently n.p.o. #3 type 2 diabetes-blood sugars will be monitored, sliding scale insulin will be administered as needed #4 chronic diastolic congestive heart failure-patient is stable at this time, her Lasix is being held #5 essential hypertension-patient's blood pressure medications are being held due to her n.p.o. status, blood pressure will be monitored Total clinical time spent by myself addressing the patient's medical issues, reviewing all of her data, and collaborating with patient's care team: 35 minutes Charges/Coding Visit Charges Inpatient E&M: 90738 Subs Hosp L2
[2024-08-26] MEDS: Insulin Glargine-YFGN 100 UNIT/ML Pen 11 UNIT SC (23:32)
[2024-08-26 23:52] LABS: Bedside Glucose 162 mg/dL (74-106)
[2024-08-27] VITALS (12 sets, daily range): BP systolic 161–201; BP diastolic 70–80; PULSE 78–102; RESP 16–18; TEMP 36.6–37; O2SAT 95–97; BMI 27.8
[2024-08-27 06:23] LABS: Bedside Glucose 188 mg/dL (74-106)
[2024-08-27] MEDS: 0.9% Saline Lock 10 ML Syringe IV ×3 (08:20→20:28)
[2024-08-27] MEDS: Aspirin 300 MG Suppository RC (09:45)
[2024-08-27] MEDS: Enoxaparin 40 MG/0.4 ML Syringe SC (09:47)
[2024-08-27] MEDS: Insulin Lispro 100 UNIT/ML INSULN.PEN SC (11:22)
[2024-08-27] MEDS: hydrALAZINE 20 MG/ML Vial 10 MG IV (11:30)
[2024-08-27 11:34] LABS: Bedside Glucose 249 mg/dL (74-106)
--- NOTE | 2024-08-27 12:13 | PRE.ANES_ITS ---
ASA Classification* ASA Classification ASA Classification: 4 Assessment & Plan Anesthesia* Anesthesia Assessment Anesthesia Assessment: Discussed sedation and/or anesthesia options, risks, benefits, and alternatives with patient/parents/legal guardian/POA. Questions invited. The patient/parents/legal guardian/POA seems to understand and agrees to proceed with anesthesia plan. Reviewed the physical assessment, medical history, allergy history and patient home medications list prior to surgery/procedure/anesthetic and documented any changes. Performed airway and anesthesia risk assessments. Anesthesia Type Anesthesia Type: MAC (Food at 9am with swallow study (applesauce)) Anesthesia Focused Assessment* Temperature: 98.6 F Pulse Rate: 89 Blood Pressure: 192/70 Respiratory Rate: 18 Pulse Ox: 96 Airway Assessment Mouth opens: >3 cm Mallampati Score: II Focused Labs Anesthesia Preop lab: CBC WBC 9.7 K/mm3 (4.4-11.0) 08/26/24 05:05 RBC 3.35 M/mm3 (4.2-5.4) L 08/26/24 05:05 Hgb 10.5 g/dL (12.0-15.0) L 08/26/24 05:05 Hct 31.7 % (37-47) L 08/26/24 05:05 Plt Count 276 K/mm3 (150-450) 08/26/24 05:05 CHEMISTRY Potassium 3.9 mmol/L (3.5-5.1) 08/26/24 05:05 Sodium 137 mmol/L (136-145) 08/26/24 05:05 Magnesium 1.6 mg/dL (1.6-2.6) 08/26/24 05:05 Phosphorus 3.4 mg/dL (2.5-4.9) 08/26/24 05:05 BUN 21 mg/dL (7-18) H 08/26/24 05:05 Creatinine 0.81 mg/dL (0.55-1.02) 08/26/24 05:05 Glucose 149 mg/dL (74-106) H 08/26/24 05:05 POC Glucose 249 mg/dL (74-106) H 08/27/24 11:13 TSH 7.090 uIU/mL (0.358-3.740) H 08/08/24 05:40 COAG PT 14.1 SECONDS (11.7-14.9) 08/25/24 12:00 Pre-Assessment Diagnosis/Proposed Procedure Planned Operative Procedure(s): EGD Peg Anesthesia History Anesthesia History - quality compliance consultant: Anesthesia History - quality compliance consultant Hx Hospitalization No 08/03/24 09:18 Any Problems With Anesthesia No 08/03/24 09:18 Cholinesterase deficiency No 08/03/24 09:18 You/Your Family Experience No 08/03/24 09:18 fever (hyperthermia) with Relationship Recent Exposure to Contagious No 08/03/24 09:18 Disease Does patient have nerve No 08/03/24 09:18 stimulator Patient instructed to have device shut off --Does patient have Pacemaker or ICD? When Was Last Pacemaker Check QUESTION #4 FULL TEXT: You/Your Family Experience fever (hyperthermia) with Anesthesia Last Oral Intake Last Oral intake: Last Oral Intake NPO since 00:00 08/27/24 11:16 Meds taken in AM with sips of water? Meds patient instructed to take am of surgery PONV PONV - quality compliance consultant: PONV - quality compliance consultant Female HX of Motion Sickness HX of N/V After Surgery Non-Smoker Duration of Surgery greater than 60 minutes Number of Risk Factors PONV Score Height & Weight Height & Weight: Anesthesia: Height & Weight Height 5 ft 2 in 08/27/24 11:16 Weight: 69 kg 08/27/24 11:16 Body Mass Index (BMI) 27.8 08/27/24 11:16 Respiratory Assessment Respiratory Assessment - quality compliance consultant: Respiratory Tract Infection Hx - quality compliance consultant Hx Respiratory Tract Infection No 08/03/24 09:18 STOP Sleep Apnea STOP Sleep Apnea - quality compliance consultant: STOP Sleep Apnea - quality compliance consultant Hx Hypertension Yes 08/27/24 10:00 Hx Sleep Apnea No: pt received letter from 08/25/24 16:19 hospital to be checked CPAP BIPAP Do you snore loudly (louder No 08/25/24 16:19 than talking or can be heard Do you often feel tired/ No 08/25/24 16:19 fatigued/ sleepy during daytime? Has anyone observed you stop No 08/25/24 16:19 breathing during sleep? STOP Results Negative 08/25/24 16:19 QUESTION #5 FULL TEXT : Do you snore loudly (louder than talking or can be heard through closed doors)? 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 Specify any problems Hx of Preganancy in last 3 N/A 08/25/24 16:19 Months Nurse Filling Out Transfusion [facility]SBONILLA 08/25/24 16:19 & Questions: Date: 08/25/24 08/25/24 16:19 Time: :08/25/24 16:19 Patient unable to answer at this time (ie. confused, unrespo /Reproduction History /Reproductive History - quality compliance consultant: /Reproductive Hx- quality compliance consultant Hx Now Gestational Age (in weeks): EDC: Hx Hx Para Hx Section SAB No 08/03/24 09:18 Active Medications Active Medications: Current Medications Generic Name Dose Route Start Last Admin Trade Name Freq PRN Reason Stop Dose Admin Acetaminophen 650 mg 08/25/24 15:02 Acetaminophen 325 Mg Tablet PO Q4H PRN PRN Pain 1-10 Or Fever>99.6 Albuterol Sulfate 2.5 mg 08/25/24 15:02 Albuterol 2.5 Mg/3 Ml Vial.Neb. INHALATION Q2H PRN PRN SOB &/OR WHEEZING Aspirin 300 mg 08/26/24 14:25 08/27/24 09:45 Aspirin 300 Mg Suppository RC 300 mg DAILY [facility] Administration Atorvastatin Calcium 40 mg 08/26/24 10:00 08/26/24 10:26 Atorvastatin Calcium 40 Mg Tablet PO Not Given DAILY [facility] Cholecalciferol 25 mcg 08/26/24 10:00 08/27/24 11:40 Cholecalciferol (Vit D3) 25 Mcg Tablet (1,000 Units) PO Not Given DAILY [facility] Clopidogrel Bisulfate 75 mg 08/26/24 10:00 08/26/24 10:27 Clopidogrel Bisulfate 75 Mg Tablet PO Not Given DAILY [facility] Duloxetine HCl 60 mg 08/25/24 22:00 08/26/24 22:04 Duloxetine Hcl 60 Mg Capsule PO Not Given QHS [facility] Enoxaparin Sodium 40 mg 08/26/24 10:00 08/27/24 09:47 Enoxaparin 40 Mg/0.4 Ml Syringe SC 40 mg DAILY [facility] Administration Gabapentin 300 mg 08/25/24 22:00 08/27/24 11:40 Gabapentin 300 Mg Capsule PO Not Given BID [facility] Glucagon 1 mg 08/25/24 15:02 Glucagon 1 Mg/Ml Syringe IM X1 PRN HYPOGLYCEMIA Protocol Dextrose 250 mls @ 0 mls/hr 08/25/24 15:02 Dextrose 10%-Water IV .Q0M PRN HYPOGLYCEMIA Protocol As Directed Sodium Chloride 100 mls @ 15 mls/hr 08/25/24 15:04 IV .Q6H40M PRN SALINE FLUSH Sodium Chloride 100 mls @ 15 mls/hr 08/25/24 15:04 IV .Q6H40M PRN Saline Flush Sodium Chloride 100 mls @ 15 mls/hr 08/25/24 15:04 IV .Q6H40M PRN Additional IVPB Infusion Insulin Glargine 11 unit 08/25/24 22:00 08/26/24 23:32 Insulin Glargine-Yfgn 100 Unit/Ml Pen SC 11 unit QHS [facility] Administration Insulin Human Lispro 0 unit 08/25/24 16:00 08/27/24 11:22 Insulin Lispro 100 Unit/Ml Insuln.Pen SC 3 unit ACHS [facility] Administration Protocol Melatonin 3 mg 08/25/24 15:02 Melatonin 3 Mg Tablet PO QHS PRN PRN INSOMNIA Menthol 1 applic 08/25/24 20:29 08/25/24 21:57 Menthol 226.8 Gm Jar TOPICAL 1 applic TID PRN PRN Administration Pain 1-10/Inflammation Ondansetron HCl 4 mg 08/25/24 15:02 Ondansetron 4 Mg/2 Ml Vial IV Q8H PRN PRN NAUSEA/VOMITING Pantoprazole Sodium 40 mg 08/26/24 10:00 08/27/24 11:40 Pantoprazole Sodium 40 Mg Tablet PO Not Given DAILY [facility] Senna/Docusate Sodium 2 tablet 08/25/24 15:02 Senna/Docusate Sodium 1 Tablet PO BID PRN PRN Constipation Sodium Chloride 10 - 40 ml 08/25/24 15:04 08/27/24 11:30 0.9% Saline Lock 10 Ml Syringe IV 10 ml UD PRN Administration SALINE FLUSH Tolterodine Tartrate 4 mg 08/26/24 10:00 08/27/24 11:39 Tolterodine Tartrate 4 Mg Cap.Sa PO Not Given DAILY [facility] Medical History Abnormal finding on thyroid function test Hypoxia Debility Chronic prescription benzodiazepine use Acute ischemic stroke Diabetes mellitus with hyperglycemia, with long-term current use of insulin Wears glasses MRSA infection History of Clostridium difficile infection Cancer Thyroid disease Achilles tendinitis Insulin dependent diabetes mellitus Walker as ambulation aid Arthritis Bladder disease Easy bruising Injury of back Back pain Unsteady gait Dietary restriction History of hiatal hernia Gastric reflux Non-smoker Chronic cough Hoarseness Shortness of breath on exertion Leg cramps History of edema History of echocardiogram History of stress test Left lumbar radiculopathy Fatigue Overweight (BMI 25.0-29.9) Migraine without aura, not intractable, without status migrainosus 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 disease History of ischemic stroke Macular degeneration 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 Acute gastritis Enlargement of lymph nodes Migraine Restless legs Depression Anxiety GERD (gastroesophageal reflux disease) Accelerated essential hypertension Essential (primary) hypertension Acute chest pain Home Medications ?Medication ?Instructions ?Recorded ?Last Taken ?Type cholecalciferol (vitamin D3) 25 1,000 unit PO DAILY supplement 03/13/17 06/13/23 History mcg (1,000 unit) tablet esomeprazole magnesium 40 mg 40 mg PO DAILY gerd 01/01/20 06/13/23 History capsule,delayed release aspirin 81 mg chewable tablet 81 mg PO DAILY@0800 heart ##30 01/03/20 05/28/24 Rx fesoterodine 4 mg tablet,extended 8 mg PO DAILY bladder 10/10/21 Unknown History release 24 hr (Toviaz) pen needle, diabetic 32 gauge x #450 ea 12/14/21 Unknown Rx 08/16 (BD Ultra-Fine Micro Pen Needle) blood sugar diagnostic (OneTouch #100 ea 12/25/22 Unknown Rx Verio test strips) albuterol sulfate 90 mcg/actuation 2 puff inhalation Q6H PRN 03/07/23 Unknown Rx aerosol inhaler shortness of breath or wheezing #6.7 grams gabapentin 300 mg capsule 300 mg PO BID pain 30 days #60 caps 06/20/23 Unknown Rx cranberry concentrate-ascorbic 1 cap PO TID Supplement 02/17/24 Unknown History acid 140 mg-100 mg capsule (Cranberry Plus Vitamin C) duloxetine 60 mg capsule,delayed 60 mg PO QHS mood #90 caps 05/26/24 Unknown Rx release atorvastatin 20 mg tablet 20 mg PO QDAY HLD 07/01/24 Unknown History Lactobacillus acidophilus 500 500 mmu cells PO DAILY health 07/10/24 Unknown History million cell capsule supplement furosemide 20 mg tablet 20 mg PO DAILY PRN edema 08/03/24 08/02/24 History insulin glargine-yfgn 100 unit/mL 22 unit subcut QHS diabetes 08/03/24 Unknown History (3 mL) subcutaneous pen (Semglee mellitus (insulin glargine-yfgn) Pen) insulin glargine-yfgn 100 unit/mL 20 unit (0.2 mL) subcut BID t2dm 08/06/24 08/07/24 Rx (3 mL) subcutaneous pen #15 mL insulin lispro 100 unit/mL 15 unit (0.15 mL) subcut TIDAC 08/06/24 Unknown Rx subcutaneous pen (Humalog KwikPen T2DM #15 mL (U-100) Insulin) insulin lispro 100 unit/mL See Protocol subcut ACHS #0 mL 08/06/24 Unknown Rx subcutaneous pen (Humalog KwikPen (U-100) Insulin) menthol 2 % topical gel (Blue Gel) 1 applic topical TID PRN PRN Pain 08/06/24 Unknown Rx 1-10/Inflammation #0 grams metoprolol succinate 100 mg 100 mg PO DAILY HTN #1 TAB 08/06/24 Unknown Rx tablet,extended release 24 hr lorazepam 1 mg tablet 1 mg PO DAILY anxiety 08/07/24 Unknown History metoprolol succinate 200 mg 200 mg PO DAILY HTN 08/07/24 Unknown History tablet,extended release 24 hr pyridoxine (vitamin B6) 250 mg 250 mg PO DAILY Suplement 08/07/24 Unknown History tablet rosuvastatin 10 mg tablet 10 mg PO QHS HLD 08/07/24 Unknown History Allergy/AdvReac Type Severity Reaction Status Date / Time shrimp Allergy Unknown unknown Verified 08/27/24 12:01 adhesive tape Allergy Hives/Rash Verified 08/27/24 12:01 ciprofloxacin (From Cipro) Allergy Photosensitivity Verified 08/27/24 12:01 & dermatitis pioglitazone (From Actos) Allergy Unknown Verified 08/27/24 12:01 codeine AdvReac Upset Verified 08/27/24 12:01 Stomach ibandronate sodium (From AdvReac GI Verified 08/27/24 12:01 Boniva) upset/esophageal burning ibuprofen AdvReac GI upset Verified 08/27/24 12:01 lansoprazole AdvReac Diarrhea Verified 08/27/24 12:01 metformin AdvReac Diarrhea Verified 08/27/24 12:01 miconazole (From Neosporin AdvReac Rash/Bliste Verified 08/27/24 12:01 AF) rs nabumetone (From Relafen) AdvReac GI upset Verified 08/27/24 12:01 pantoprazole (From Protonix) AdvReac Diarrhea Verified 08/27/24 12:01 sucralfate (From Carafate) AdvReac feels Verified 08/27/24 12:01 poorly Family History Father Lung cancer Colon cancer Mother Mesothelioma Hypertension Grandmother Heart disease Surgical History Hx of colonoscopy Hx of right cataract extraction Hx of left cataract extraction History of lobectomy of lung History of lung biopsy H/O endoscopy Spinal injections S/P rotator cuff repair Social History household members: spouse housing: house pets and animals: No Smoking Status: Never smoker second hand exposure: No alcohol intake: current alcohol intake frequency: holidays/special occasions only substance use type: does not use Review of Systems (Anesthesia) ROS Narrative System reviewed and no additional complaints, except as documented.
--- NOTE | 2024-08-27 12:48 | ST.MBS ---
Modified Barium Swallow Patient Information Study Date: 08/27/24 Study Time: 10:10 Direct Billable Minutes: 115 Total Minutes procedure & reportin Diagnosis: Acute CVA I63.9 Referring Physician: Christian Hollingsworth Reason for Referral: Objectively assess swallow function, assess risk for aspiration, and determine recommendations for least restrictive diet textures and compensatory strategies to improve safety of swallow. 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 Pt w/ PMH above presented to [facility] ED 08/25/2024 from [facility] TCU. She was admitted to TCU for management of debility, UTI, encephalopathy. Stroke alert was called for slurred speech, slow responses, and difficulty w/ word finding. Brain CT 08/25/2024 Impression 1. Chronic ischemic and involutional changes of the brain. 2. Concern for stroke/positive symptomatology should be further evaluated with CT brain perfusion/CTA or MRI of the brain for further assessment. Pt admitted to PCU and referred for ST consult as part of CVA work up. In the ED, pt was NIH of 10, improved to NIH of 4. At time of BSE on PCU 08/25/23, NIH of 11 w/ no RUE or RLE movement, R facial droop, aphasia, and dysarthria. Of note, pt was receiving ST services during TCU stay for management of cognitive impairment (BCAT - Score of 31 on 08/11/24, indicative of significant cognitive impairment or mild stage dementia). She was tolerating Regular textures / Thin liquids during stay w/o concerns for dysphagia following BSE 08/09/2024. BSE 08/24/24 recommended strict NPO as pt did not cope w/ 1/2 tsp of water and turned bright red prompting PHYSICAL THERAPIST TECHNICIAN to use emergency call button. With eventual coughing, pt recovered and was satting mid 90s. She continues to have extensive coughing w/ ice chips at bedside, SOB after bites of . Pt recommended for MBSS to further assess swallow function, aspiration risk, and determine recommendations for LRD textures. Current Diet Ordered: Strict NPO Dentition: Natural Teeth Mental Status: Impaired Respiratory Status: Oxygenating on Room Air Penetration-Aspiration Scale Penetration-Aspiration Scale: OBJECTIVE ASSESSMENT OF SWALLOW FUNCTION (QUANTITATIVE ? PER TRIAL): PENETRATION / ASPIRATION SCALE (NIEVES): 1 = does not enter airway 2 = enters airway/above vocal folds/ejected 3 = enters airway/above vocal folds/not ejected 4 = enters airway/contacts vocal folds/ejected 5 = enters airway/contacts vocal folds/not ejected 6 = enters airway/below vocal folds/ejected 7 = enters airway/below vocal folds/not ejected despite effort 8 = enters airway/below vocal folds/no effort VIDEOFLOROSCOPIC SCALE SCORE (NIEVES): Grade I = aspiration of material that has penetrated into the laryngeal vestibule, intact cough reflex Grade II = aspiration < 10 % of the bolus, intact cough reflex Grade III = aspiration of < 10 % of the bolus, reduced cough reflex or aspiration of > 10 % of the bolus, intact cough reflex Grade IV = aspiration of > 10 % of the bolus, reduced cough reflex Penetration-Aspiration Scale Score Pudding via teaspoon: Result: 1= does not enter airway Honey Thick Liquid via teaspoon: Result: 3= enters airways/above vocal folds/not ejected Thin Liquid via 1/2 tsp w/ Chin tuck: Result: 7= enters airways/below vocal folds/not ejected despite effort Thin Liquid via 1/2 tsp w/ Chin tuck and cue to swallow fast: Result: 1= does not enter airway Thin Liquid via 1/2 tsp w/ R head rotation: Result: 1= does not enter airway [place] Thick Liquid via tsp w/ Chin tuck and cue to swallow fast: Result: 7= enters airways/below vocal folds/not ejected despite effort Pudding via teaspoon Trial 2: Result: 1= does not enter airway ? Cookie in barium pudding coating: Result: 1= does not enter airway Oral Phase Labial Seal: Escape progressing to mid-chin Tongue Control During Bolus Hold: Posterior escape of greater than half of bolus Bolus Preparation/Mastication: Disorganized chewing/mashing with solid pieces of bolus unchewed (Very small pieces of cookies un-chewed) Bolus Transport/Lingual Motion: Slowed tongue motion Oral Residue: Trace residue lining oral structures Pharyngeal Phase Initiation of Pharyngeal Swallow: Bolus head in pyriforms (And laryngeal vestibule) Soft Palate Elevation: No bolus between soft palate and pharyngeal wall Laryngeal Elevation: Partial superior movement thyroid cart/partial apprx aryt-epig petiole Anterior Hyoid Excursion: Partial anterior movement Epiglottic Movement: Complete inversion Laryngeal Vestibule Closure at Height of Swallow: Incomplete; narrow column of air/contrast in laryngeal vestibule Pharyngeal Stripping Wave: Present - complete Pharyngoesophageal Segment Opening: Complete distension and complete duration; no obstruction of flow Tongue Base Retraction: Narrow column of contrast between tongue base & post. pharyngeal wall Pharyngeal Residue: Collection of residue within or on pharyngeal structures (1st trial of pudding; otherwise, trace residue) Esophageal Phase Esophageal Clearance: Complete clearance Diagnosis/Impression Diagnosis: Moderate-severe oropharyngeal dysphagia R13.12 Impression: The oral phase is primarily marked by... -Poor bolus control. ~30% of honey/moderately thick liquids by tsp spilled to the laryngeal vestibule prior to swallow onset greatly increasing risk for aspiration before and during the swallow. -Slowed mastication with small pieces of cookie un-chewed. -Slow tongue motion for A-P transport. The pharyngeal phase is primarily marked by... -Delayed swallow onset. -Decreased airway closure during the swallow w/ aspiration of thin liquids by 1/2 tsp and aspiration of nectar/mildly thick liquids by tsp w/ chin tuck. Laryngeal penetration of honey thick liquids w/o full ejection (trace residues remaining in laryngeal vestibule). Did not trial sips larger than tsp due to poor coping and bad coughing spells during beside trials of tsp and ice chip trials at bedside. Recommendations Diet: Puree Textures (HOLD ALL LIQUIDS) Compensatory Strategies: Small Bites, Slow Rate, Sitting upright and Remain sitting upright for 30 minutes after PO intake Supervision: 1:1 Direct Supervision (STAFF FOR SUPERVISION) Recommend Repeat Modified Barium Swallow: Yes Need for Skilled Speech Therapy Services: Yes Comment: -With ST ONLY, trials of thin liquids by 1/2 tsp w/ use of chin tuck/swallow fast and thin liquids by 1/2 tsp w/ R head rotation. -With ST, soft and bite size texture trials to consider diet advancement from purees only to soft and bite size textures (NO MIXED CONSISTENCIES) only. Repeat MBSS prior to diet advancement of liquids. -Train the patient in oropharyngeal exercises (Lingual resistance/coordination, Sara, CTAR, Petey). Recommended Referrals: GI Consult (PHYSICAL THERAPIST TECHNICIAN spoke w/ Dr. Hollingsworth re: pt's high risk for aspiration and even choking concerns w/ liquids due to pt turning bright red, weak coughing w/ limited liquid trials. To meet hydration needs and supplement nutritional needs, pt is being recommended for PEG tube.) Education Completed: 1. Described result of evaluation. Status Active ST Patient: Active Contact Information [facility] Speech Therapy:: Sofy Peck M.A. CCC-PHYSICAL THERAPIST TECHNICIAN? Speech-Language Pathologist?? [facility] [address] [place] [address]? [email or web address]?? [phone]
[2024-08-27] MEDS: 0.9% Normal Saline (1000mL) 1,000 ML 999 ML IV (12:49)
[2024-08-27] MEDS: Morphine 2 MG/ML Syringe IV ×2 (16:11→20:28)
--- NOTE | 2024-08-27 16:13 | PCM.PN.HOSP ---
Reason for Visit Reason for Visit: Diagnoses Occlusion and stenosis of unspecified carotid artery (08/25/24) Facial weakness (08/25/24) Aphasia (08/25/24) Weakness (08/25/24) Hyperglycemia, unspecified (08/25/24) Unspecified abnormal findings in urine (08/25/24) Subjective Subjective Patient was seen and examined today, speech therapy talked with me at length about the patient and stated that the patient was not safe for any type of liquids presently, I talked to the patient's and the patient and recommended that a PEG tube be placed, gastroenterology was contacted and took the patient down for PEG tube but this was canceled by anesthesia because she had a small amount of barium this morning for a swallowing test at bedside. Objective Data Objective Data Vital Signs: Vital Signs Temp Pulse Resp BP Pulse Ox O2 Del Method 98.1 F 102 H 18 161/71 H 96 Room Air 08/27/24 14:00 08/27/24 14:00 08/27/24 14:00 08/27/24 14:00 08/27/24 14:00 08/27/24 14:00 Oxygen Delivery Method Room Air Weight: 69 kg Body Mass Index (BMI) 27.8 Intake & Output: Intake and Output for Last 24 Hours 08/25/24 08/26/24 08/27/24 23:59 23:59 23:59 Intake Total 0 / 0 1000 / 1000 1000 / 1000 Output Total 400 / 800 850 / 850 Balance 0 / 0 600 / 200 150 / 150 Lab / Micro Data 08/26/24 05:05 08/26/24 05:05 Labs: Laboratory Results - last 24 hr 08/26/24 17:09: POC Glucose 167 H 08/26/24 23:27: POC Glucose 162 H 08/27/24 06:02: POC Glucose 188 H 08/27/24 11:13: POC Glucose 249 H Micro: Microbiology 08/26/24 06:35 Urine, Clean Catch Urine Culture - Preliminary Staphylococcus aureus Radiography Diagnostic Testing: Radiology Impression Echocardiogram 08/26/24 13:26 Interpretation Summary Normal LV size. Left ventricular systolic function is normal. The left ventricular ejection fraction is 60 %. Previous negative bubble study. Ordering Physician: Christian Hollingsworth Referring Physician: Emily Yun M.D. Performed By: Karli Torre RDCS Physical Exam Narrative alert, oriented x3 and no apparent distress General Appearance: cooperative, well kempt and well developed Orientation / Consciousness: awake, oriented to person, oriented to place and oriented to time HEENT normocephalic, head/scalp atraumatic and moist oral mucous membranes Eyes PERRL, EOMs intact bilaterally and conjunctivae normal Neck supple, no JVD, thyroid normal and no carotid bruits General: trachea midline Resp normal respiratory effort, no retractions, no use of accessory muscles and clear to auscultation bilaterally Auscultation: Negative for rales, rhonchi or wheezes Cardio regular rate, regular rhythm, S1 normal heart sound, S2 normal heart sound, no murmurs, no rub and no gallops GI normal to inspection, nondistended, normoactive bowel sounds, soft to palpation, non-tender and non-distended Extremity no clubbing, cyanosis or edema Skin no rashes or lesions noted General Skin Exam: no breakdown Neuro oriented x3 and CN's II-XII intact bilaterally Neuro Narrative: Patient has right upper extremity weakness and right lower extremity weakness as compared with the left. Patient's speech pattern is slow and halting at times. Sensorium / Orientation: awake and alert Psych affect normal Assessment & Plan Assessment/Plan (1) Expressive aphasia: (2) Right sided weakness: PLAN: Plan 1. 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 PT and OT will see the patient, she will need placement in a [facility] facility for inpatient rehab services. #2 expressive aphasia secondary to #1-speech therapy will see the patient, she is currently n.p.o. #3 type 2 diabetes-blood sugars will be monitored, sliding scale insulin will be administered as needed #4 chronic diastolic congestive heart failure-patient is stable at this time, her Lasix is being held #5 essential hypertension-patient's blood pressure medications are being held due to her n.p.o. status, blood pressure will be monitored #6 oropharyngeal dysphagia-secondary to recent stroke, patient will need PEG tube placed, an attempt will be made tomorrow to place a PEG tube Total clinical time spent by myself addressing the patient's medical issues, reviewing all of her data, and collaborating with patient's care team: 35 minutes Charges/Coding Visit Charges Inpatient E&M: 93509 Subs Hosp L2
--- NOTE | 2024-08-27 17:09 | EX.PCM.CON.G ---
HPI Consult Data Date of Consult: 08/27/24 HPI Narrative Reason for Consultation: Failed swallow study HPI Narrative: CHRISTINA IVORY, is a 84 F who presented to the emergency department at [facility] on 08/25/2024 due to stroke team being called in the transitional care unit. Patient was recently admitted to [facility] from 08/03/2024 through 08/06/2024 and discharged to the transitional care unit on the . At that time she was admitted for debility, urinary tract infection and encephalopathy. A stroke team was called in the transitional care unit for development of expressive aphasia as well as some right-sided weakness and she developed right facial droop in the emergency department. Her indicated these were new findings. NIH in the emergency department was 7 and [facility] neurology was contacted and recommended against tenecteplase noting she was not a candidate for thrombolytic. Vital signs on presentation showed a temperature of 97.7, heart rate 78, blood pressure is 122/52, heart rate was 78, blood pressure was 95% on room air. CBC shows a mild stable anemia with a hemoglobin of 11.5 but was otherwise fairly unremarkable. Coags were unremarkable. Chemistry panel showed mild hyponatremia with sodium of 135 and a slightly elevated serum creatinine 1.16 with a baseline of 0.7-0.9. After her subsequent strokes she has been having severe oropharyngeal and esophageal dysphagia. She recently failed a swallow study and I was consulted for percutaneous endoscopic gastrostomy tube placement. [facility] Medical History Abnormal finding on thyroid function test Hypoxia Debility Chronic prescription benzodiazepine use Acute ischemic stroke Diabetes mellitus with hyperglycemia, with long-term current use of insulin Wears glasses MRSA infection History of Clostridium difficile infection Cancer Thyroid disease Achilles tendinitis Insulin dependent diabetes mellitus Walker as ambulation aid Arthritis Bladder disease Easy bruising Injury of back Back pain Unsteady gait Dietary restriction History of hiatal hernia Gastric reflux Non-smoker Chronic cough Hoarseness Shortness of breath on exertion Leg cramps History of edema History of echocardiogram History of stress test Left lumbar radiculopathy Fatigue Overweight (BMI 25.0-29.9) Migraine without aura, not intractable, without status migrainosus 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 disease History of ischemic stroke Macular degeneration 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 Acute gastritis Enlargement of lymph nodes Migraine Restless legs Depression Anxiety GERD (gastroesophageal reflux disease) Accelerated essential hypertension Essential (primary) hypertension Acute chest pain Home Medications ?Medication ?Instructions ?Recorded ?Last Taken ?Type cholecalciferol (vitamin D3) 25 1,000 unit PO DAILY supplement 03/13/17 06/13/23 History mcg (1,000 unit) tablet esomeprazole magnesium 40 mg 40 mg PO DAILY gerd 01/01/20 06/13/23 History capsule,delayed release aspirin 81 mg chewable tablet 81 mg PO DAILY@0800 heart ##30 01/03/20 05/28/24 Rx fesoterodine 4 mg tablet,extended 8 mg PO DAILY bladder 10/10/21 Unknown History release 24 hr (Toviaz) pen needle, diabetic 32 gauge x #450 ea 12/14/21 Unknown Rx 1/4 (BD Ultra-Fine Micro Pen Needle) blood sugar diagnostic (OneTouch #100 ea 12/25/22 Unknown Rx Verio test strips) albuterol sulfate 90 mcg/actuation 2 puff inhalation Q6H PRN 03/07/23 Unknown Rx aerosol inhaler shortness of breath or wheezing #6.7 grams gabapentin 300 mg capsule 300 mg PO BID pain 30 days #60 caps 06/20/23 Unknown Rx cranberry concentrate-ascorbic 1 cap PO TID Supplement 02/17/24 Unknown History acid 140 mg-100 mg capsule (Cranberry Plus Vitamin C) duloxetine 60 mg capsule,delayed 60 mg PO QHS mood #90 caps 05/26/24 Unknown Rx release atorvastatin 20 mg tablet 20 mg PO QDAY HLD 07/01/24 Unknown History Lactobacillus acidophilus 500 500 mmu cells PO DAILY health 07/10/24 Unknown History million cell capsule supplement furosemide 20 mg tablet 20 mg PO DAILY PRN edema 08/03/24 08/02/24 History insulin glargine-yfgn 100 unit/mL 22 unit subcut QHS diabetes 08/03/24 Unknown History (3 mL) subcutaneous pen (Semglee mellitus (insulin glargine-yfgn) Pen) insulin glargine-yfgn 100 unit/mL 20 unit (0.2 mL) subcut BID t2dm 08/06/24 08/07/24 Rx (3 mL) subcutaneous pen #15 mL insulin lispro 100 unit/mL 15 unit (0.15 mL) subcut TIDAC 08/06/24 Unknown Rx subcutaneous pen (Humalog KwikPen T2DM #15 mL (U-100) Insulin) insulin lispro 100 unit/mL See Protocol subcut ACHS #0 mL 08/06/24 Unknown Rx subcutaneous pen (Humalog KwikPen (U-100) Insulin) menthol 2 % topical gel (Blue Gel) 1 applic topical TID PRN PRN Pain 08/06/24 Unknown Rx 1-10/Inflammation #0 grams metoprolol succinate 100 mg 100 mg PO DAILY HTN #1 TAB 08/06/24 Unknown Rx tablet,extended release 24 hr lorazepam 1 mg tablet 1 mg PO DAILY anxiety 08/07/24 Unknown History metoprolol succinate 200 mg 200 mg PO DAILY HTN 08/07/24 Unknown History tablet,extended release 24 hr pyridoxine (vitamin B6) 250 mg 250 mg PO DAILY Suplement 08/07/24 Unknown History tablet rosuvastatin 10 mg tablet 10 mg PO QHS HLD 08/07/24 Unknown History Allergy/AdvReac Type Severity Reaction Status Date / Time shrimp Allergy Unknown unknown Verified 08/27/24 12:01 adhesive tape Allergy Hives/Rash Verified 08/27/24 12:01 ciprofloxacin (From Cipro) Allergy Photosensitivity Verified 08/27/24 12:01 & dermatitis pioglitazone (From Actos) Allergy Unknown Verified 08/27/24 12:01 codeine AdvReac Upset Verified 08/27/24 12:01 Stomach ibandronate sodium (From AdvReac GI Verified 08/27/24 12:01 Boniva) upset/esophageal burning ibuprofen AdvReac GI upset Verified 08/27/24 12:01 lansoprazole AdvReac Diarrhea Verified 08/27/24 12:01 metformin AdvReac Diarrhea Verified 08/27/24 12:01 miconazole (From Neosporin AdvReac Rash/Bliste Verified 08/27/24 12:01 AF) rs nabumetone (From Relafen) AdvReac GI upset Verified 08/27/24 12:01 pantoprazole (From Protonix) AdvReac Diarrhea Verified 08/27/24 12:01 sucralfate (From Carafate) AdvReac feels Verified 08/27/24 12:01 poorly Family History Father Lung cancer Colon cancer Mother Mesothelioma Hypertension Grandmother Heart disease Surgical History Hx of colonoscopy Hx of right cataract extraction Hx of left cataract extraction History of lobectomy of lung History of lung biopsy H/O endoscopy Spinal injections S/P rotator cuff repair Social History household members: spouse housing: house pets and animals: No Smoking Status: Never smoker second hand exposure: No alcohol intake: current alcohol intake frequency: holidays/special occasions only substance use type: does not use ROS Review of Systems ROS Unobtainable: other Details: Unable to obtain as patient having significant issues with expressive aphasia Constitutional Constitutional: Denies fatigue, fever(s), poor appetite, weight gain or weight loss Gastrointestinal Gastrointestinal: Denies belching, bloating, change in bowel habits, change in stool character, chewing difficulty, coffee ground emesis, constipation, cramping, diarrhea, dyspepsia, dysphagia, early satiety, excessive flatus, fecal incontinence, heartburn, hematemesis, hematochezia, hemorrhoids, loose stools, melena, nausea, odynophagia, rectal bleeding, tenesmus, vomiting or weight changes Physical Exam Narrative alert, oriented x3 and no apparent distress General Appearance: cooperative, well kempt and well developed Orientation / Consciousness: awake, oriented to person, oriented to place and oriented to time HEENT normocephalic, head/scalp atraumatic and moist oral mucous membranes Eyes PERRL, EOMs intact bilaterally and conjunctivae normal Neck supple, no JVD, thyroid normal and no carotid bruits General: trachea midline Resp normal respiratory effort, no retractions, no use of accessory muscles and clear to auscultation bilaterally Auscultation: Negative for rales, rhonchi or wheezes Cardio regular rate, regular rhythm, S1 normal heart sound, S2 normal heart sound, no murmurs, no rub and no gallops GI normal to inspection, nondistended, normoactive bowel sounds, soft to palpation, non-tender and non-distended Extremity no clubbing, cyanosis or edema Skin no rashes or lesions noted General Skin Exam: no breakdown Neuro oriented x3 and CN's II-XII intact bilaterally Neuro Narrative: Patient has right upper extremity weakness and right lower extremity weakness as compared with the left. Patient's speech pattern is slow and halting at times. Sensorium / Orientation: awake and alert Psych affect normal Lab / Micro Data 08/26/24 05:05 08/26/24 05:05 Labs: Laboratory Results - last 24 hr 08/26/24 17:09: POC Glucose 167 H 08/26/24 23:27: POC Glucose 162 H 08/27/24 06:02: POC Glucose 188 H 08/27/24 11:13: POC Glucose 249 H Micro: Microbiology 08/26/24 06:35 Urine, Clean Catch Urine Culture - Preliminary Staphylococcus aureus Imaging Radiology Impression Echocardiogram 08/26/24 13:26 Interpretation Summary Normal LV size. Left ventricular systolic function is normal. The left ventricular ejection fraction is 60 %. Previous negative bubble study. Ordering Physician: Christian Hollingsworth Referring Physician: Emily Yun M.D. 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 Recommend to hold aspirin and n.p.o. past midnight for percutaneous endoscopic gastrostomy tube placement. All questions answered from patient's family. The plan is for EGD with PEG tube placement tomorrow. Charges/Coding Visit Charges Inpatient E&M: 05407 Init Hosp L3
[2024-08-27 17:17] LABS: Bedside Glucose 173 mg/dL (74-106)
[2024-08-27] MEDS: Insulin Glargine-YFGN 100 UNIT/ML Pen 11 UNIT SC (20:36)
[2024-08-27 22:14] LABS: Bedside Glucose 195 mg/dL (74-106)
[2024-08-28] VITALS (14 sets, daily range): BP systolic 131–196; BP diastolic 54–85; PULSE 85–108; RESP 14–18; TEMP 35.9–36.7; O2SAT 90–98; BMI 27.8
[2024-08-28] MEDS: Morphine 2 MG/ML Syringe IV ×5 (00:28→20:53)
[2024-08-28] MEDS: 0.9% Saline Lock 10 ML Syringe IV ×3 (00:31→09:28)
[2024-08-28 04:17] LABS: Absolute Lymphocyte Count 1.53 X10^3/uL (0.83-4.51); Absolute Neutrophil Count 6.4 X10^3/uL (2.0-7.7); Basophil# 0.05 X10^3/uL; Basophil% 0.5 % (0-1); Eosinophil# 0.29 X10^3/uL; Eosinophils% 3.1 % (0-5); Hematocrit 36.4 % (37-47); Hemoglobin 12.4 g/dL (12.0-15.0); Lymphocyte # 1.53 X10^3/ul (0.83-4.51); Lymphocyte % 16.2 % (19-41); Mean Corp Hgb Conc 34.1 g/dL (32-36); Mean Corpuscular Volume 93.8 fL (81-99); Mean Platelet Vol. 9.7 fl (6.2-12.0); Monocyte# 1.09 X10^3/uL; Monocyte% 11.6 % (0-10); NRBC Flagged by Analyzer 0 % (0-5); Neutrophil # 6.44 X10^3/uL (2.7-7.7); Neutrophil % 68.3 % (47-70); Platelet Count 283 K/mm3 (150-450); RBC Distribution Width CV 13.3 % (11.6-14.6); RBC Distribution Width SD 45.1 fl (35.1-43.9); Red Blood Count 3.88 M/mm3 (4.2-5.4); White Blood Count 9.4 K/mm3 (4.4-11.0)
[2024-08-28 04:46] LABS: Anion Gap 9 (5-15); BUN 13 mg/dL (7-18); BUN/Creat Ratio 20.4 RATIO (10-20); Calcium,Total 9.2 mg/dL (8.5-10.1); Chloride 107 mmol/L (98-107); Creatinine, Serum 0.64 mg/dL (0.55-1.02); EST Glomerular Filtration Rate 95 mL/min (>60); Est Glom Filt Rate - Afr Amer 115 mL/min (>60); Estimated Creatinine Clearance 49.35 ml/min; Glucose 209 mg/dL (74-106); Potassium 3.8 mmol/L (3.5-5.1); Sodium Level 136 mmol/L (136-145)
[2024-08-28 08:11] LABS: Bedside Glucose 216 mg/dL (74-106)
[2024-08-28 09:18] LABS: Hemoglobin A1c 7.2 % (3.8-5.6)
--- NOTE | 2024-08-28 10:18 | PCM.PRE.AN2 ---
ASA Classification* ASA Classification ASA Classification: 3 Assessment & Plan Anesthesia* Anesthesia Assessment Anesthesia Assessment: Discussed sedation and/or anesthesia options, risks, benefits, and alternatives with patient/parents/legal guardian/POA. Questions invited. The patient/parents/legal guardian/POA seems to understand and agrees to proceed with anesthesia plan. Reviewed the physical assessment, medical history, allergy history and patient home medications list prior to surgery/procedure/anesthetic and documented any changes. Performed airway and anesthesia risk assessments. Anesthesia Type Anesthesia Type: MAC Anesthesia Focused Assessment* Temperature: 97.5 F Pulse Rate: 88 Blood Pressure: 132/54 Respiratory Rate: 16 Pulse Ox: 98 Airway Assessment Mouth opens: >3 cm Mallampati Score: II Focused Labs Anesthesia Preop lab: CBC WBC 9.4 K/mm3 (4.4-11.0) 08/28/24 03:47 RBC 3.88 M/mm3 (4.2-5.4) L 08/28/24 03:47 Hgb 12.4 g/dL (12.0-15.0) 08/28/24 03:47 Hct 36.4 % (37-47) L 08/28/24 03:47 Plt Count 283 K/mm3 (150-450) 08/28/24 03:47 CHEMISTRY Potassium 3.8 mmol/L (3.5-5.1) 08/28/24 03:47 Sodium 136 mmol/L (136-145) 08/28/24 03:47 Magnesium 1.6 mg/dL (1.6-2.6) 08/26/24 05:05 Phosphorus 3.4 mg/dL (2.5-4.9) 08/26/24 05:05 BUN 13 mg/dL (7-18) 08/28/24 03:47 Creatinine 0.64 mg/dL (0.55-1.02) 08/28/24 03:47 Glucose 209 mg/dL (74-106) H 08/28/24 03:47 POC Glucose 216 mg/dL (74-106) H 08/28/24 05:49 TSH 10.600 uIU/mL (0.358-3.740) H 08/28/24 03:47 COAG PT 14.1 SECONDS (11.7-14.9) 08/25/24 12:00 Pre-Assessment Diagnosis/Proposed Procedure Planned Operative Procedure(s): EGD Peg Anesthesia History Anesthesia History - director of business continuity: Anesthesia History - director of business continuity Hx Hospitalization No 08/03/24 09:18 Any Problems With Anesthesia No 08/03/24 09:18 Cholinesterase deficiency No 08/03/24 09:18 You/Your Family Experience No 08/03/24 09:18 fever (hyperthermia) with Relationship Recent Exposure to Contagious No 08/03/24 09:18 Disease Does patient have nerve No 08/03/24 09:18 stimulator Patient instructed to have device shut off --Does patient have Pacemaker or ICD? When Was Last Pacemaker Check QUESTION #4 FULL TEXT: You/Your Family Experience fever (hyperthermia) with Anesthesia Last Oral Intake Last Oral intake: Last Oral Intake NPO since 00:00 08/27/24 11:16 Meds taken in AM with sips of water? Meds patient instructed to take am of surgery PONV PONV - director of business continuity: PONV - director of business continuity Female HX of Motion Sickness HX of N/V After Surgery Non-Smoker Duration of Surgery greater than 60 minutes Number of Risk Factors PONV Score Height & Weight Height & Weight: Anesthesia: Height & Weight Height 5 ft 2 in 08/27/24 11:16 Weight: 69 kg 08/27/24 11:16 Body Mass Index (BMI) 27.8 08/28/24 00:15 Respiratory Assessment Respiratory Assessment - director of business continuity: Respiratory Tract Infection Hx - director of business continuity Hx Respiratory Tract Infection No 08/03/24 09:18 STOP Sleep Apnea STOP Sleep Apnea - director of business continuity: STOP Sleep Apnea - director of business continuity Hx Hypertension Yes 08/28/24 00:15 Hx Sleep Apnea No: pt received letter from 08/25/24 16:19 hospital to be checked CPAP BIPAP Do you snore loudly (louder No 08/25/24 16:19 than talking or can be heard Do you often feel tired/ No 08/25/24 16:19 fatigued/ sleepy during daytime? Has anyone observed you stop No 08/25/24 16:19 breathing during sleep? STOP Results Negative 08/25/24 16:19 QUESTION #5 FULL TEXT : Do you snore loudly (louder than talking or can be heard through closed doors)? 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 Specify any problems Hx of Preganancy in last 3 N/A 08/25/24 16:19 Months Nurse Filling Out Transfusion KSCHENCK 08/25/24 16:19 & Questions: Date: 08/25/24 08/25/24 16:19 Time: :08/25/24 16:19 Patient unable to answer at this time (ie. confused, unrespo /Reproduction History /Reproductive History - director of business continuity: /Reproductive Hx- director of business continuity Hx Now Gestational Age (in weeks): EDC: Hx Hx Para Hx Section SAB No 08/03/24 09:18 Active Medications Active Medications: Current Medications Generic Name Dose Route Start Last Admin Trade Name Freq PRN Reason Stop Dose Admin Acetaminophen 650 mg 08/25/24 15:02 Acetaminophen 325 Mg Tablet PO Q4H PRN PRN Pain 1-10 Or Fever>99.6 Albuterol Sulfate 2.5 mg 08/25/24 15:02 Albuterol 2.5 Mg/3 Ml Vial.Neb. INHALATION Q2H PRN PRN SOB &/OR WHEEZING Aspirin 300 mg 08/26/24 14:25 08/27/24 09:45 Aspirin 300 Mg Suppository RC 300 mg DAILY COLL[facility] Administration Atorvastatin Calcium 40 mg 08/26/24 10:08/28/24 08:40 Atorvastatin Calcium 40 Mg Tablet PO Not Given DAILY [facility] Cholecalciferol 25 mcg 08/26/24 10:00 08/28/24 08:41 Cholecalciferol (Vit D3) 25 Mcg Tablet (1,000 Units) PO Not Given DAILY [facility] Clopidogrel Bisulfate 75 mg 08/26/24 10:00 08/28/24 08:40 Clopidogrel Bisulfate 75 Mg Tablet PO Not Given DAILY [facility] Duloxetine HCl 60 mg 08/25/24 22:00 08/27/24 20:34 Duloxetine Hcl 60 Mg Capsule PO Not Given QHS [facility] Enoxaparin Sodium 40 mg 08/26/24 10:00 08/28/24 08:52 Enoxaparin 40 Mg/0.4 Ml Syringe SC Not Given DAILY [facility] Gabapentin 300 mg 08/25/24 22:00 08/28/24 08:40 Gabapentin 300 Mg Capsule PO Not Given BID [facility] Glucagon 1 mg 08/25/24 15:02 Glucagon 1 Mg/Ml Syringe IM X1 PRN HYPOGLYCEMIA Protocol Dextrose 250 mls @ 0 mls/hr 08/25/24 15:02 Dextrose 10%-Water IV .Q0M PRN HYPOGLYCEMIA Protocol As Directed Sodium Chloride 100 mls @ 15 mls/hr 08/25/24 15:04 IV .Q6H40M PRN SALINE FLUSH Sodium Chloride 100 mls @ 15 mls/hr 08/25/24 15:04 IV .Q6H40M PRN Saline Flush Sodium Chloride 100 mls @ 15 mls/hr 08/25/24 15:04 IV .Q6H40M PRN Additional IVPB Infusion Insulin Glargine 11 unit 08/25/24 22:00 08/27/24 20:36 Insulin Glargine-Yfgn 100 Unit/Ml Pen SC 11 unit QHS [facility] Administration Insulin Human Lispro 0 unit 08/25/24 16:00 08/28/24 05:51 Insulin Lispro 100 Unit/Ml Insuln.Pen SC Not Given ACHS [facility] Protocol Melatonin 3 mg 08/25/24 15:02 Melatonin 3 Mg Tablet PO QHS PRN PRN INSOMNIA Menthol 1 applic 08/25/24 20:29 08/25/24 21:57 Menthol 226.8 Gm Jar TOPICAL 1 applic TID PRN PRN Administration Pain 1-10/Inflammation Morphine Sulfate 2 - 4 mg 08/27/24 15:46 08/28/24 09:26 Morphine 2 Mg/Ml Syringe IV 4 mg Q4H PRN PRN Administration Pain Score 4-10 Ondansetron HCl 4 mg 08/25/24 15:02 Ondansetron 4 Mg/2 Ml Vial IV Q8H PRN PRN NAUSEA/VOMITING Pantoprazole Sodium 40 mg 08/26/24 10:00 08/28/24 08:41 Pantoprazole Sodium 40 Mg Tablet PO Not Given DAILY [facility] Senna/Docusate Sodium 2 tablet 08/25/24 15:02 Senna/Docusate Sodium 1 Tablet PO BID PRN PRN Constipation Sodium Chloride 10 - 40 ml 08/25/24 15:04 08/28/24 09:28 0.9% Saline Lock 10 Ml Syringe IV 10 ml UD PRN Administration SALINE FLUSH Tolterodine Tartrate 4 mg 08/26/24 10:00 08/28/24 08:40 Tolterodine Tartrate 4 Mg Cap.Sa PO Not Given DAILY [facility] PFSH Medical History Abnormal finding on thyroid function test Hypoxia Debility Chronic prescription benzodiazepine use Acute ischemic stroke Diabetes mellitus with hyperglycemia, with long-term current use of insulin Wears glasses MRSA infection History of Clostridium difficile infection Cancer Thyroid disease Achilles tendinitis Insulin dependent diabetes mellitus Walker as ambulation aid Arthritis Bladder disease Easy bruising Injury of back Back pain Unsteady gait Dietary restriction History of hiatal hernia Gastric reflux Non-smoker Chronic cough Hoarseness Shortness of breath on exertion Leg cramps History of edema History of echocardiogram History of stress test Left lumbar radiculopathy Fatigue Overweight (BMI 25.0-29.9) Migraine without aura, not intractable, without status migrainosus 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 disease History of ischemic stroke Macular degeneration 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 Acute gastritis Enlargement of lymph nodes Migraine Restless legs Depression Anxiety GERD (gastroesophageal reflux disease) Accelerated essential hypertension Essential (primary) hypertension Acute chest pain Home Medications ?Medication ?Instructions ?Recorded ?Last Taken ?Type cholecalciferol (vitamin D3) 25 1,000 unit PO DAILY supplement 03/13/17 06/13/23 History mcg (1,000 unit) tablet esomeprazole magnesium 40 mg 40 mg PO DAILY gerd 01/01/20 06/13/23 History capsule,delayed release aspirin 81 mg chewable tablet 81 mg PO DAILY@0800 heart ##30 01/03/20 05/28/24 Rx fesoterodine 4 mg tablet,extended 8 mg PO DAILY bladder 10/10/21 Unknown History release 24 hr (Toviaz) pen needle, diabetic 32 gauge x #450 ea 12/14/21 Unknown Rx 1/4 (BD Ultra-Fine Micro Pen Needle) blood sugar diagnostic (OneTouch #100 ea 12/25/22 Unknown Rx Verio test strips) albuterol sulfate 90 mcg/actuation 2 puff inhalation Q6H PRN 03/07/23 Unknown Rx aerosol inhaler shortness of breath or wheezing #6.7 grams gabapentin 300 mg capsule 300 mg PO BID pain 30 days #60 caps 06/20/23 Unknown Rx cranberry concentrate-ascorbic 1 cap PO TID Supplement 02/17/24 Unknown History acid 140 mg-100 mg capsule (Cranberry Plus Vitamin C) duloxetine 60 mg capsule,delayed 60 mg PO QHS mood #90 caps 05/26/24 Unknown Rx release atorvastatin 20 mg tablet 20 mg PO QDAY HLD 07/01/24 Unknown History Lactobacillus acidophilus 500 500 mmu cells PO DAILY health 07/10/24 Unknown History million cell capsule supplement furosemide 20 mg tablet 20 mg PO DAILY PRN edema 08/03/24 08/02/24 History insulin glargine-yfgn 100 unit/mL 22 unit subcut QHS diabetes 08/03/24 Unknown History (3 mL) subcutaneous pen (Semglee mellitus (insulin glargine-yfgn) Pen) insulin glargine-yfgn 100 unit/mL 20 unit (0.2 mL) subcut BID t2dm 08/06/24 08/07/24 Rx (3 mL) subcutaneous pen #15 mL insulin lispro 100 unit/mL 15 unit (0.15 mL) subcut TIDAC 08/06/24 Unknown Rx subcutaneous pen (Humalog KwikPen T2DM #15 mL (U-100) Insulin) insulin lispro 100 unit/mL See Protocol subcut ACHS #0 mL 08/06/24 Unknown Rx subcutaneous pen (Humalog KwikPen (U-100) Insulin) menthol 2 % topical gel (Blue Gel) 1 applic topical TID PRN PRN Pain 08/06/24 Unknown Rx 1-10/Inflammation #0 grams metoprolol succinate 100 mg 100 mg PO DAILY HTN #1 TAB 08/06/24 Unknown Rx tablet,extended release 24 hr lorazepam 1 mg tablet 1 mg PO DAILY anxiety 08/07/24 Unknown History metoprolol succinate 200 mg 200 mg PO DAILY HTN 08/07/24 Unknown History tablet,extended release 24 hr pyridoxine (vitamin B6) 250 mg 250 mg PO DAILY Suplement 08/07/24 Unknown History tablet rosuvastatin 10 mg tablet 10 mg PO QHS HLD 08/07/24 Unknown History Allergy/AdvReac Type Severity Reaction Status Date / Time shrimp Allergy Unknown unknown Verified 08/27/24 12:01 adhesive tape Allergy Hives/Rash Verified 08/27/24 12:01 ciprofloxacin (From Cipro) Allergy Photosensitivity Verified 08/27/24 12:01 & dermatitis pioglitazone (From Actos) Allergy Unknown Verified 08/27/24 12:01 codeine AdvReac Upset Verified 08/27/24 12:01 Stomach ibandronate sodium (From AdvReac GI Verified 08/27/24 12:01 Boniva) upset/esophageal burning ibuprofen AdvReac GI upset Verified 08/27/24 12:01 lansoprazole AdvReac Diarrhea Verified 08/27/24 12:01 metformin AdvReac Diarrhea Verified 08/27/24 12:01 miconazole (From Neosporin AdvReac Rash/Bliste Verified 08/27/24 12:01 AF) rs nabumetone (From Relafen) AdvReac GI upset Verified 08/27/24 12:01 pantoprazole (From Protonix) AdvReac Diarrhea Verified 08/27/24 12:01 sucralfate (From Carafate) AdvReac feels Verified 08/27/24 12:01 poorly Family History Father Lung cancer Colon cancer Mother Mesothelioma Hypertension Grandmother Heart disease Surgical History Hx of colonoscopy Hx of right cataract extraction Hx of left cataract extraction History of lobectomy of lung History of lung biopsy H/O endoscopy Spinal injections S/P rotator cuff repair Social History household members: spouse housing: house pets and animals: No Smoking Status: Never smoker second hand exposure: No alcohol intake: current alcohol intake frequency: holidays/special occasions only substance use type: does not use Review of Systems (Anesthesia) ROS Narrative System reviewed and no additional complaints, except as documented.
--- NOTE | 2024-08-28 11:07 | PN.GI_ITS ---
Subjective Subjective Patient is not have any abdominal pain. She has been n.p.o. since yesterday. She is for PEG tube today. Objective Data Objective Data Vital Signs: Vital Signs Temp Pulse Resp BP Pulse Ox O2 Del Method 97.5 F L 88 16 132/54 H 98 Room Air 08/28/24 10:18 08/28/24 10:18 08/28/24 10:18 08/28/24 10:18 08/28/24 10:18 08/28/24 08:45 Oxygen Delivery Method Room Air Weight: 152 lb 1.903 oz Body Mass Index (BMI) 27.8 Intake & Output: Intake and Output for Last 24 Hours 08/26/24 08/27/24 08/28/24 23:59 23:59 23:59 Intake Total 1000 / 1000 1000 / 1000 Output Total 400 / 800 1150 / 1310 310 / 310 Balance 600 / 200 -150 / -310 -310 / -310 Lab / Micro Data 08/28/24 03:47 08/28/24 03:47 Labs: Laboratory Results - last 24 hr 08/27/24 11:13: POC Glucose 249 H 08/27/24 16:57: POC Glucose 173 H 08/27/24 20:33: POC Glucose 195 H 08/28/24 03:47: WBC 9.4, RBC 3.88 L, Hgb 12.4, Hct 36.4 L, MCV 93.8, MCH 32.0, MCHC 34.1, RDW Std Deviation 45.1 H, RDW Coeff of Win 13.3, Plt Count 283, MPV 9.7, Immature Gran % (Auto) 0.300, Neut % (Auto) 68.3, Lymph % (Auto) 16.2 L, M eli % (Auto) 11.6 H, Eos % (Auto) 3.1, Baso % (Auto) 0.5, Absolute Neuts (auto) 6.4, Absolute Lymphs (auto) 1.53, Nucleated RBC % 0, Sodium 136, Potassium 3.8, Chloride 107, Carbon Dioxide 20.0 L, Anion Gap 9, BUN 13, Creatinine 0.64, Estim Creat Clear Calc 49.35, Est GFR (MDRD) Af Amer 115, Est GFR (MDRD) Non-Af 95, B UN/Creatinine Ratio 20.4 H, Glucose 209 H, Hemoglobin A1c 7.2 H, Calcium 9.2, T SH 10.600 H 08/28/24 05:49: POC Glucose 216 H Micro: Microbiology 08/26/24 06:35 Urine, Clean Catch Urine Culture - Final Staphylococcus aureus GPC Poss Enterococcus sp Mixed Gram Positive Organisms Physical Exam Narrative alert, oriented x3 and no apparent distress General Appearance: cooperative, well kempt and well developed Orientation / Consciousness: awake, oriented to person, oriented to place and oriented to time HEENT normocephalic, head/scalp atraumatic and moist oral mucous membranes Eyes PERRL, EOMs intact bilaterally and conjunctivae normal Neck supple, no JVD, thyroid normal and no carotid bruits General: trachea midline Resp normal respiratory effort, no retractions, no use of accessory muscles and clear to auscultation bilaterally Auscultation: Negative for rales, rhonchi or wheezes Cardio regular rate, regular rhythm, S1 normal heart sound, S2 normal heart sound, no murmurs, no rub and no gallops GI normal to inspection, nondistended, normoactive bowel sounds, soft to palpation, non-tender and non-distended Extremity no clubbing, cyanosis or edema Skin no rashes or lesions noted General Skin Exam: no breakdown Neuro oriented x3 and CN's II-XII intact bilaterally Neuro Narrative: Patient has right upper extremity weakness and right lower extremity weakness as compared with the left. Patient's speech pattern is slow and halting at times. 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 Aspirin has been on hold and she has been n.p.o. past midnight for percutaneous endoscopic gastrostomy tube placement. All questions answered from patient's family. The plan is for EGD with PEG tube placement today Charges/Coding Visit Charges Inpatient E&M: 22483 Subs Hosp L2
--- NOTE | 2024-08-28 11:38 | OP.CCLET_ITS ---
08/28/2024 Emily Yun [address] [place] [address] Re : Upper GI endoscopy procedure for Ana Ortega Dear Dr. Yun This procedure was performed on August. My impressions and recommendations are as follows: Impressions : - Normal esophagus. - Non-bleeding gastric ulcer with pigmented material. Treated with argon plasma coagulation (APC). - Erythematous mucosa in the gastric body. - No gross lesions in the duodenal bulb. - An endoscopically removable PEG placement was successfully completed. - No specimens collected. Recommendations : - Please follow the post-PEG recommendations including: Nutrition consult for formula and volume and advance food and medications per primary care provider. - Continue present medications. My findings are described in the full procedure note, which is enclosed. If I can be of further assistance, please feel free to contact me at . Sincerely, Abhinav Friend, 08/28/2024 11:38:05 AM This report has been signed electronically.
--- NOTE | 2024-08-28 11:38 | OP.EGD_ITS ---
Patient Name: Ana Ortega Procedure Date: 08/28/2024 11:06 AM Date of : 1940 Age: 84 Procedure: Upper GI endoscopy Indications: Place PEG because patient is unable to eat, Place PEG due to dysphagia, Place PEG due to impaired swallowing, Place PEG due to aspiration risk, Place PEG due to neurological disorder causing impaired swallowing Providers: Abhinav Monsivais DO Medicines: Monitored Anesthesia Care Patient Profile: This is an 84 year old female. Refer to note in patient chart for documentation of history and physical. Patient has symptoms of acute dysphagia. Complications: No immediate complications. Procedure: Pre-Anesthesia Assessment: - Prior to the procedure, a History and Physical was performed, and patient medications and allergies were reviewed. The patient is competent. The risks and benefits of the procedure and the sedation options and risks were discussed with the patient. All questions were answered and informed consent was obtained. Patient identification and proposed procedure were verified by the physician in the pre-procedure area. Mental Status Examination: alert and oriented. Airway Examination: normal oropharyngeal airway and neck mobility. Respiratory Examination: clear to auscultation. CV Examination: normal. Prophylactic Antibiotics: The patient does not require prophylactic antibiotics. Prior Anticoagulants: The patient has taken no anticoagulant or antiplatelet agents except for NSAID medication. ASA Grade Assessment: II - A patient with mild systemic disease. After reviewing the risks and benefits, the patient was deemed in satisfactory condition to undergo the procedure. The anesthesia plan was to use monitored anesthesia care (MAC). Immediately prior to administration of medications, the patient was re-assessed for adequacy to receive sedatives. The heart rate, respiratory rate, oxygen saturations, blood pressure, adequacy of pulmonary ventilation, and response to care were monitored throughout the procedure. The physical status of the patient was re-assessed after the procedure. After obtaining informed consent, the endoscope was passed under direct vision. Throughout the procedure, the patient's blood pressure, pulse, and oxygen saturations were monitored continuously. The gastroscope was introduced through the mouth, and advanced to the second part of duodenum. The upper GI endoscopy was accomplished without difficulty. The patient tolerated the procedure well. Scope In: 11:21:47 AM Scope Out: 11:32:35 AM Total Procedure Duration Time 0 hours 10 minutes 48 seconds Findings: The examined esophagus was normal. One non-bleeding linear gastric ulcer with pigmented material was found in the gastric body. The lesion was 5 mm in largest dimension. Coagulation for bleeding prevention using argon plasma at 0.4 liters/minute and 20 mann was successful. Estimated blood loss was minimal. Localized mildly erythematous mucosa without bleeding was found in the gastric body. The patient was placed in the supine position for PEG placement. The stomach was insufflated to appose gastric and abdominal levine. A site was located in the body of the stomach with good transillumination for placement. The abdominal wall was marked and prepped in a sterile manner. The area was anesthetized with 1 mL of 1% lidocaine. The trocar needle was introduced through the abdominal wall and into the stomach under direct endoscopic view. A snare was introduced through the endoscope and opened in the gastric lumen. The guide wire was passed through the trocar and into the open snare. The snare was closed around the guide wire. The endoscope and snare were removed, pulling the wire out through the mouth. A skin incision was made at the site of needle insertion. The endoscopically removable 20 Fr EndoVive Safety gastrostomy tube was lubricated. The G-tube was tied to the guide wire and pulled through the mouth and into the stomach. The trocar needle was removed, and the gastrostomy tube was pulled out from the stomach through the skin. The external bumper was attached to the gastrostomy tube, and the tube was cut to remove the guide wire. The final position of the gastrostomy tube was confirmed by relook endoscopy, and skin marking noted to be 4 cm at the external bumper. The final tension and compression of the abdominal wall by the PEG tube and external bumper were checked. The feeding tube was capped, and the tube site cleaned and dressed. No gross lesions were noted in the duodenal bulb. Impression: - Normal esophagus. - Non-bleeding gastric ulcer with pigmented material. Treated with argon plasma coagulation (APC). - Erythematous mucosa in the gastric body. - No gross lesions in the duodenal bulb. - An endoscopically removable PEG placement was successfully completed. - No specimens collected. Recommendation: - Please follow the post-PEG recommendations including: Nutrition consult for formula and volume and advance food and medications per primary care provider. - Continue present medications. Procedure Code(s): --- Professional --- 70056, Esophagogastroduodenoscopy, flexible, transoral; with directed placement of percutaneous gastrostomy tube 18086, 59,51, Esophagogastroduodenoscopy, flexible, transoral; with control of bleeding, any method CPT copyright 2021 [employer]. All rights reserved. The codes documented in this report are preliminary and upon calender worker helper review may be revised to meet current compliance requirements. Abhinav Monsivais DO 08/28/2024 11:38:05 AM This report has been signed electronically. Number of Addenda: 0 Note Initiated On: 08/28/2024 11:06 AM
--- NOTE | 2024-08-28 11:42 | PCM.POST.ANE ---
Anesthesia: Postop Eval I Current Vital Signs Temperature: 97.3 F Pulse Rate: 101 Blood Pressure: 131/85 Respiratory Rate: 16 Pulse Ox: 93 Oxygen Delivery Method: Room Air Assessment Airway patent: Yes Spontaneous unlabored respirations: Yes Mental status: Awake and Calm nausea: No Vomiting: No Anesthesia Complication: No Fluid Hydration Crystalloid volume administer (ml): 30 Total IV fluid infused: 30 Progress Note Anesthesia document: Postop Eval 1 completed: Yes
--- NOTE | 2024-08-28 12:04 | PCM.POSTANE2 ---
Anesthesia Postop Eval I Sum Postop Eval Completion status Anesthesia document: Postop Eval 1 completed: Yes Anesthesia Postop Eval I Summary Anesthesia Postop Eval I Summary: Anesthesia Postop Eval I: Assessment Summary Airway patent Yes 08/28/24 11:43 [email or web address] Spontaneous unlabored Yes 08/28/24 11:43 [email or web address] respirations Mental status Awake,Calm 08/28/24 11:43 [email or web address] nausea No 08/28/24 11:43 [email or web address] Vomiting No 08/28/24 11:43 [email or web address] Anesthesia Postop Eval I: Fluid Summary Crystalloid volume administer 30 08/28/24 11:43 [email or web address] (ml) Colloids volume administered ( ml) Blood Product volume administered (ml) Total IV fluid infused 30 08/28/24 11:43 [email or web address] Anesthesia Postop Eval I: Summary Notes Anesthesia Complication No 08/28/24 11:43 [email or web address] Anesthesia Complication Comment: Post-operative progress note Anesthesia: Postop Eval II Evaluation Mental status: Awake Pain Level: 0 nausea: No Vomiting: No
[2024-08-28 12:41] LABS: Bedside Glucose 241 mg/dL (74-106)
--- NOTE | 2024-08-28 13:33 | CASEMGMT ---
Addendum entered by Shireen Lazaro 08/28/24 13:58: NEWTON updated family on timeline. ALEXANDRIA Cooper Original Note: Social Work- SW met with pt and pt spouse to discuss discharge preferences. Pt and spouse feel RU would be a better option than TCU for the physician oversight. SW coordinated with physician and [facility] admissions. PEG tube placed; pt tolerated placement well according to spouse. Pt to start feeds tonight then transfer to [facility] tomorrow if medically ready according to collaboration with physician and [facility] admissions. NEWTON completed PHQ9 with assistance of spouse. Plan: [facility] [place] Cooper
--- NOTE | 2024-08-28 13:41 | CASEMGMT ---
Social Work- met with pt and pt spouse. Pt spouse assisted pt in answering questions for PHQ9. Pt scored 0/9. Pt spouse did note that since the most recent stroke, pt is feeling down as she was looking forward to going home and had been doing very well with her therapy. Pt and spouse hoping that with improvements in function, pt spirits will return to a positive state and do not request any resources at this time. [place]A Cooper
--- NOTE | 2024-08-28 15:37 | CON.PCM.NE_ITS ---
Assessment and Plan: Stroke Assessment/Plan CHRISTINA IVORY is a 84 F with a history of HTN/HLD and multiple prior strokes (most recent 3 weeks ago on 08/04/24). While she initially appeared globally confused and weak, she now has Right hemiparesis consistent with left pontine infarct seen on MRI. While brainstem strokes are classically thought of as small vessel strokes, I will classify her stroke etiology as cryptogenic given multiple recent infarcts in different vascular territories. Recommend aspirin 81mg daily and load with clopidogrel 300mg when able to use NG. Continue aspirin 81mg and clopidogrel 75mg daily for 21 days then stop clopidogrel. Continue aspirin indefinitely. Continue physical, occupational, and speech therapy. Recommend 30 day cardiac exercise specialist on discharge to screen for atrial fibrillation. Continue to titrate BP meds for goal <140/80. Follow up with outpatient neurology after discharge. Telestroke service will sign off, please contact with further questions or concerns. HPI Consult Data Date of Consult: 08/28/24 HPI Narrative HPI Narrative: Updates since last note: TTE normal. S/p PEG today. Planning for discharge to inpatient rehab. [facility] Medical History Abnormal finding on thyroid function test Hypoxia Debility Chronic prescription benzodiazepine use Acute ischemic stroke Diabetes mellitus with hyperglycemia, with long-term current use of insulin Wears glasses MRSA infection History of Clostridium difficile infection Cancer Thyroid disease Achilles tendinitis Insulin dependent diabetes mellitus Walker as ambulation aid Arthritis Bladder disease Easy bruising Injury of back Back pain Unsteady gait Dietary restriction History of hiatal hernia Gastric reflux Non-smoker Chronic cough Hoarseness Shortness of breath on exertion Leg cramps History of edema History of echocardiogram History of stress test Left lumbar radiculopathy Fatigue Overweight (BMI 25.0-29.9) Migraine without aura, not intractable, without status migrainosus 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 disease History of ischemic stroke Macular degeneration 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 Acute gastritis Enlargement of lymph nodes Migraine Restless legs Depression Anxiety GERD (gastroesophageal reflux disease) Accelerated essential hypertension Essential (primary) hypertension Acute chest pain Home Medications ?Medication ?Instructions ?Recorded ?Last Taken ?Type cholecalciferol (vitamin D3) 25 1,000 unit PO DAILY supplement 03/13/17 06/13/23 History mcg (1,000 unit) tablet esomeprazole magnesium 40 mg 40 mg PO DAILY gerd 01/01/20 06/13/23 History capsule,delayed release aspirin 81 mg chewable tablet 81 mg PO DAILY@0800 heart ##30 01/03/20 05/28/24 Rx fesoterodine 4 mg tablet,extended 8 mg PO DAILY bladder 10/10/21 Unknown History release 24 hr (Toviaz) pen needle, diabetic 32 gauge x #450 ea 12/14/21 Unknown Rx 1/4 (BD Ultra-Fine Micro Pen Needle) blood sugar diagnostic (OneTouch #100 ea 12/25/22 Unknown Rx Verio test strips) albuterol sulfate 90 mcg/actuation 2 puff inhalation Q6H PRN 03/07/23 Unknown Rx aerosol inhaler shortness of breath or wheezing #6.7 grams gabapentin 300 mg capsule 300 mg PO BID pain 30 days #60 caps 06/20/23 Unknown Rx cranberry concentrate-ascorbic 1 cap PO TID Supplement 02/17/24 Unknown History acid 140 mg-100 mg capsule (Cranberry Plus Vitamin C) duloxetine 60 mg capsule,delayed 60 mg PO QHS mood #90 caps 05/26/24 Unknown Rx release atorvastatin 20 mg tablet 20 mg PO QDAY HLD 07/01/24 Unknown History Lactobacillus acidophilus 500 500 mmu cells PO DAILY health 07/10/24 Unknown History million cell capsule supplement furosemide 20 mg tablet 20 mg PO DAILY PRN edema 08/03/24 08/02/24 History insulin glargine-yfgn 100 unit/mL 22 unit subcut QHS diabetes 08/03/24 Unknown History (3 mL) subcutaneous pen (Semglee mellitus (insulin glargine-yfgn) Pen) insulin glargine-yfgn 100 unit/mL 20 unit (0.2 mL) subcut BID t2dm 08/06/24 08/07/24 Rx (3 mL) subcutaneous pen #15 mL insulin lispro 100 unit/mL 15 unit (0.15 mL) subcut TIDAC 08/06/24 Unknown Rx subcutaneous pen (Humalog KwikPen T2DM #15 mL (U-100) Insulin) insulin lispro 100 unit/mL See Protocol subcut ACHS #0 mL 08/06/24 Unknown Rx subcutaneous pen (Humalog KwikPen (U-100) Insulin) menthol 2 % topical gel (Blue Gel) 1 applic topical TID PRN PRN Pain 08/06/24 Unknown Rx 1-10/Inflammation #0 grams metoprolol succinate 100 mg 100 mg PO DAILY HTN #1 TAB 08/06/24 Unknown Rx tablet,extended release 24 hr lorazepam 1 mg tablet 1 mg PO DAILY anxiety 08/07/24 Unknown History metoprolol succinate 200 mg 200 mg PO DAILY HTN 08/07/24 Unknown History tablet,extended release 24 hr pyridoxine (vitamin B6) 250 mg 250 mg PO DAILY Suplement 08/07/24 Unknown History tablet rosuvastatin 10 mg tablet 10 mg PO QHS HLD 08/07/24 Unknown History Allergy/AdvReac Type Severity Reaction Status Date / Time shrimp Allergy Unknown unknown Verified 08/27/24 12:01 adhesive tape Allergy Hives/Rash Verified 08/27/24 12:01 ciprofloxacin (From Cipro) Allergy Photosensitivity Verified 08/27/24 12:01 & dermatitis pioglitazone (From Actos) Allergy Unknown Verified 08/27/24 12:01 codeine AdvReac Upset Verified 08/27/24 12:01 Stomach ibandronate sodium (From AdvReac GI Verified 08/27/24 12:01 Boniva) upset/esophageal burning ibuprofen AdvReac GI upset Verified 08/27/24 12:01 lansoprazole AdvReac Diarrhea Verified 08/27/24 12:01 metformin AdvReac Diarrhea Verified 08/27/24 12:01 miconazole (From Neosporin AdvReac Rash/Bliste Verified 08/27/24 12:01 AF) rs nabumetone (From Relafen) AdvReac GI upset Verified 08/27/24 12:01 pantoprazole (From Protonix) AdvReac Diarrhea Verified 08/27/24 12:01 sucralfate (From Carafate) AdvReac feels Verified 08/27/24 12:01 poorly Family History Father Lung cancer Colon cancer Mother Mesothelioma Hypertension Grandmother Heart disease Surgical History Hx of colonoscopy Hx of right cataract extraction Hx of left cataract extraction History of lobectomy of lung History of lung biopsy H/O endoscopy Spinal injections S/P rotator cuff repair Social History household members: spouse housing: house pets and animals: No Smoking Status: Never smoker second hand exposure: No alcohol intake: current alcohol intake frequency: holidays/special occasions only substance use type: does not use Vital Signs Vital Signs Vital Signs: 08/27/24 18:00 08/27/24 20:27 08/27/24 20:30 Temperature 98.1 F 98.0 F Temperature Source Oral Oral Pulse Rate 90 88 Pulse Strength Normal (2+) Respiratory Rate 17 16 Respiratory Effort Respiratory Depth Respiratory Pattern Blood Pressure 168/73 H 201/79 H Blood Pressure Mean 104 119 Blood Pressure Source Monitor Monitor Blood Pressure Position Semi-Fowlers Semi-Fowlers Blood Pressure Location Left Arm Right Arm Baseline BP Pulse Ox 96 96 Oxygen Delivery Method Room Air Room Air Oxygen Flow Rate (L/min) 08/27/24 20:30 08/28/24 00:30 08/28/24 04:45 Temperature 97.1 F L 96.8 F L Temperature Source Temporal Temporal Pulse Rate 85 94 Pulse Strength Respiratory Rate 16 18 Respiratory Effort Normal Non-Labored Respiratory Depth Normal Respiratory Pattern Normal Blood Pressure 186/70 H 196/76 H Blood Pressure Mean 108 116 Blood Pressure Source Monitor Monitor Blood Pressure Position Semi-Fowlers Semi-Fowlers Blood Pressure Location Right Arm Right Arm Baseline BP Pulse Ox 97 97 Oxygen Delivery Method Room Air Room Air Room Air Oxygen Flow Rate (L/min) 08/28/24 08:00 08/28/24 08:45 08/28/24 10:00 Temperature 97.5 F L Temperature Source Oral Pulse Rate 88 Pulse Strength Normal (2+) Respiratory Rate 16 Respiratory Effort Normal Non-Labored Respiratory Depth Normal Respiratory Pattern Normal Blood Pressure 132/54 H Blood Pressure Mean 80 Blood Pressure Source Monitor Blood Pressure Position Semi-Fowlers Blood Pressure Location Left Arm Baseline BP Pulse Ox 98 Oxygen Delivery Method Room Air Room Air Oxygen Flow Rate (L/min) 08/28/24 10:18 08/28/24 11:40 08/28/24 11:43 Temperature 97.5 F L 96.9 F L 97.3 F L Temperature Source Temporal Pulse Rate 88 108 H 101 H Pulse Strength Respiratory Rate 16 14 16 Respiratory Effort Respiratory Depth Respiratory Pattern Normal Blood Pressure 132/54 H 131/85 H 131/85 H Blood Pressure Mean 100 Blood Pressure Source Monitor Blood Pressure Position Semi-Fowlers Blood Pressure Location Right Arm Baseline BP 132/54 Pulse Ox 98 90 93 Oxygen Delivery Method Room Air Room Air Oxygen Flow Rate (L/min) 08/28/24 11:45 08/28/24 11:50 08/28/24 11:54 Temperature 98.1 F Temperature Source Temporal Pulse Rate 99 98 96 Pulse Strength Respiratory Rate 14 16 14 Respiratory Effort Respiratory Depth Respiratory Pattern Blood Pressure 154/77 H 165/72 H 162/69 H Blood Pressure Mean 102 103 100 Blood Pressure Source Monitor Monitor Monitor Blood Pressure Position Semi-Fowlers Semi-Fowlers Semi-Fowlers Blood Pressure Location Right Arm Right Arm Right Arm Baseline BP 132/54 132/54 132/54 Pulse Ox 96 96 95 Oxygen Delivery Method Nasal Cannula Nasal Cannula Room Air Oxygen Flow Rate (L/min) 3 2 08/28/24 12:15 08/28/24 14:06 Temperature 97.9 F Temperature Source Temporal Pulse Rate 90 Pulse Strength Respiratory Rate 16 Respiratory Effort Respiratory Depth Respiratory Pattern Blood Pressure 169/78 H Blood Pressure Mean 108 Blood Pressure Source Monitor Blood Pressure Position Semi-Fowlers Blood Pressure Location Left Arm Baseline BP Pulse Ox 92 92 Oxygen Delivery Method Room Air Oxygen Flow Rate (L/min) Weight Weight: 69 kg Body Mass Index (BMI) 27.8 EEG Results Procedure Details EEG Procedure Details: CHRISTINA IVORY is a 84 year old F with a past medical history of , who presents for evaluation of Electroencephalogram on DATE at TIME NIHSS NIHSS Nursing Documentation NIHSS Nursing Documentation: NIHSS: Ischemic Stroke/TIA Start: 08/25/24 15:02 Text: For ICU Patients: NIH sroke scale at Status: Complete presentation and every 2 hours or with change in RN caregiver Freq: [id number] Protocol: Activity Type Activity Date Activity User E-sign Co-sign Detail Recorded Client Recorded Date Recorded By Document 08/25/24 15:30 AR [id number] 08/25/24 15:33 [place] 08/25/24 15:30 NIH Stroke Scale [NIHSS] A score of 0 is normal or asymptomatic . Total possible score is 42. Inpatient: RN or Physician to activate a stroke alert for onset of new stroke symptoms or with NIHSS increase >/= 3 points. Following change in neurological status, NIHSS will be performed per physician order or more frequently PRN. -1a. Level of Consciousness Alert; keenly responsive -1b. LOC Questions Answers BOTH questions correctly. -1c. LOC Commands Performs both tasks correctly . -2. Best Gaze Normal -3. Visual No visual loss -4. Facial Palsy Minor paralysis (flattened nasolabial fold , asymmetry on smiling) -5a. Left Arm No drift; arm holds 90 (or 45 ) degrees for full 10 seconds -5b. Right Arm Drift; arm drifts downward but doesn?t hit the bed -6a. Left Leg No drift; leg holds 30-degree position for full 5 seconds -6b. Right Leg No effort against gravity ; leg falls to bed immediately -7. Limb Ataxia Present in 2 limbs -8. Sensory Mild-to- moderate sensory loss; -9. Best Language Severe aphasia; -10. Dysarthria Mild-to- moderate dysarthria; -11. Extinction and Inattention No abnormality -Total 11 Query Text:A score of 0 is normal or asymptomatic. Total possible score is 42 . ED: Notify Physician for NIHSS increase by > / = 3 points. Inpatient: RN or Physician to activate a stroke alert for NIHSS increase of > / = 3 points. Coma Scale [Assess] -Eye Opening Spontaneous -Motor Obeys Commands -Verbal Oriented [Total] -Coma Scale Total 15 NIHSS: Ischemic Stroke/TIA Start: 08/25/24 15:02 Text: For PCU Patients: NIH and Neuro Check every 4 Status: Active hours, PRN and with change in RN caregiver. Freq: [id number] Protocol: Activity Type Activity Date Activity User E-sign Co-sign Detail Recorded Client Recorded Date Recorded By Document 08/28/24 12:15 [id number] 08/28/24 12:22 08/28/24 12:15 NIH Stroke Scale [NIHSS] A score of 0 is normal or asymptomatic . Total possible score is 42. Inpatient: RN or Physician to activate a stroke alert for onset of new stroke symptoms or with NIHSS increase >/= 3 points. Following change in neurological status, NIHSS will be performed per physician order or more frequently PRN. -1a. Level of Consciousness Alert; keenly responsive -1b. LOC Questions Answers BOTH questions correctly. -1c. LOC Commands Performs both tasks correctly . -2. Best Gaze Normal -3. Visual No visual loss -4. Facial Palsy Minor paralysis (flattened nasolabial fold , asymmetry on smiling) -5a. Left Arm No drift; arm holds 90 (or 45 ) degrees for full 10 seconds -5b. Right Arm Some effort against gravity ; -6a. Left Leg No drift; leg holds 30-degree position for full 5 seconds -6b. Right Leg Some effort against gravity ; -7. Limb Ataxia Present in 2 limbs -8. Sensory Normal; no sensory loss -9. Best Language Mild-to- moderate aphasia; -10. Dysarthria Mild-to- moderate dysarthria; -11. Extinction and Inattention No abnormality -Total 9 Query Text:A score of 0 is normal or asymptomatic. Total possible score is 42 . ED: Notify Physician for NIHSS increase by > / = 3 points. Inpatient: RN or Physician to activate a stroke alert for NIHSS increase of > / = 3 points. Coma Scale [Assess] -Eye Opening Spontaneous -Motor Obeys Commands -Verbal Oriented [Total] -Coma Scale Total 15 Physical Exam Narrative dysarthria, RUE drift to bed, some distal hand motion, RLE drift to bed but can wiggle toes. NIHSS 5 (dysartria 1, RUE 2, RLE 2) Lab / Micro Data 08/28/24 03:47 08/28/24 03:47 Labs: Laboratory Results - last 24 hr 08/27/24 16:57: POC Glucose 173 H 08/27/24 20:33: POC Glucose 195 H 08/28/24 03:47: WBC 9.4, RBC 3.88 L, Hgb 12.4, Hct 36.4 L, MCV 93.8, MCH 32.0, MCHC 34.1, RDW Std Deviation 45.1 H, RDW Coeff of Win 13.3, Plt Count 283, MPV 9.7, Immature Gran % (Auto) 0.300, Neut % (Auto) 68.3, Lymph % (Auto) 16.2 L, M eli % (Auto) 11.6 H, Eos % (Auto) 3.1, Baso % (Auto) 0.5, Absolute Neuts (auto) 6.4, Absolute Lymphs (auto) 1.53, Nucleated RBC % 0, Sodium 136, Potassium 3.8, Chloride 107, Carbon Dioxide 20.0 L, Anion Gap 9, BUN 13, Creatinine 0.64, Estim Creat Clear Calc 49.35, Est GFR (MDRD) Af Amer 115, Est GFR (MDRD) Non-Af 95, B UN/Creatinine Ratio 20.4 H, Glucose 209 H, Hemoglobin A1c 7.2 H, Calcium 9.2, T SH 10.600 H 08/28/24 05:49: POC Glucose 216 H 08/28/24 12:21: POC Glucose 241 H Micro: Microbiology 08/26/24 06:35 Urine, Clean Catch Urine Culture - Final Staphylococcus aureus GPC Poss Enterococcus sp Mixed Gram Positive Organisms Active Medications Active Medications Active Medications: Current Medications Generic Name Dose Route Start Last Admin Trade Name Freq PRN Reason Stop Dose Admin Acetaminophen 650 mg 08/25/24 15:02 Acetaminophen 325 Mg Tablet PO Q4H PRN PRN Pain 1-10 Or Fever>99.6 Albuterol Sulfate 2.5 mg 08/25/24 15:02 Albuterol 2.5 Mg/3 Ml Vial.Neb. INHALATION Q2H PRN PRN SOB &/OR WHEEZING Aspirin 300 mg 08/26/24 14:25 08/28/24 10:00 Aspirin 300 Mg Suppository RC Not Given DAILY [facility] Atorvastatin Calcium 40 mg 08/26/24 10:00 08/28/24 08:40 Atorvastatin Calcium 40 Mg Tablet PO Not Given DAILY [facility] Cholecalciferol 25 mcg 08/26/24 10:00 08/28/24 08:41 Cholecalciferol (Vit D3) 25 Mcg Tablet (1,000 Units) PO Not Given DAILY [facility] Clopidogrel Bisulfate 75 mg 08/26/24 10:00 08/28/24 08:40 Clopidogrel Bisulfate 75 Mg Tablet PO Not Given DAILY [facility] Duloxetine HCl 60 mg 08/25/24 22:00 08/27/24 20:34 Duloxetine Hcl 60 Mg Capsule PO Not Given QHS [facility] Enoxaparin Sodium 40 mg 08/26/24 10:00 08/28/24 08:52 Enoxaparin 40 Mg/0.4 Ml Syringe SC Not Given DAILY [facility] Gabapentin 300 mg 08/25/24 22:00 08/28/24 08:40 Gabapentin 300 Mg Capsule PO Not Given BID [facility] Glucagon 1 mg 08/25/24 15:02 Glucagon 1 Mg/Ml Syringe IM X1 PRN HYPOGLYCEMIA Protocol Dextrose 250 mls @ 0 mls/hr 08/25/24 15:02 Dextrose 10%-Water IV .Q0M PRN HYPOGLYCEMIA Protocol As Directed Sodium Chloride 100 mls @ 15 mls/hr 08/25/24 15:04 IV .Q6H40M PRN SALINE FLUSH Sodium Chloride 100 mls @ 15 mls/hr 08/25/24 15:04 IV .Q6H40M PRN Saline Flush Sodium Chloride 100 mls @ 15 mls/hr 08/25/24 15:04 IV .Q6H40M PRN Additional IVPB Infusion Insulin Glargine 11 unit 08/25/24 22:00 08/27/24 20:36 Insulin Glargine-Yfgn 100 Unit/Ml Pen SC 11 unit QHS [facility] Administration Insulin Human Lispro 0 unit 08/25/24 16:00 08/28/24 13:53 Insulin Lispro 100 Unit/Ml Insuln.Pen SC Not Given ACHS [facility] Protocol Melatonin 3 mg 08/25/24 15:02 Melatonin 3 Mg Tablet PO QHS PRN PRN INSOMNIA Menthol 1 applic 08/25/24 20:29 08/25/24 21:57 Menthol 226.8 Gm Jar TOPICAL 1 applic TID PRN PRN Administration Pain 1-10/Inflammation Morphine Sulfate 2 - 4 mg 08/27/24 15:46 08/28/24 09:26 Morphine 2 Mg/Ml Syringe IV 4 mg Q4H PRN PRN Administration Pain Score 4-10 Ondansetron HCl 4 mg 08/25/24 15:02 Ondansetron 4 Mg/2 Ml Vial IV Q8H PRN PRN NAUSEA/VOMITING Pantoprazole Sodium 40 mg 08/26/24 10:00 08/28/24 08:41 Pantoprazole Sodium 40 Mg Tablet PO Not Given DAILY [facility] Senna/Docusate Sodium 2 tablet 08/25/24 15:02 Senna/Docusate Sodium 1 Tablet PO BID PRN PRN Constipation Sodium Chloride 10 - 40 ml 08/25/24 15:04 08/28/24 09:28 0.9% Saline Lock 10 Ml Syringe IV 10 ml UD PRN Administration SALINE FLUSH Tolterodine Tartrate 4 mg 08/26/24 10:00 08/28/24 08:40 Tolterodine Tartrate 4 Mg Cap.Sa PO Not Given DAILY [facility]
[2024-08-28] MEDS: Ondansetron 4 MG/2 ML Vial IV (16:45)
[2024-08-28 17:48] LABS: Bedside Glucose 229 mg/dL (74-106)
--- NOTE | 2024-08-28 19:13 | PCM.PN.HOSP ---
Reason for Visit Reason for Visit: Diagnoses Occlusion and stenosis of unspecified carotid artery (08/25/24) Facial weakness (08/25/24) Aphasia (08/25/24) Weakness (08/25/24) Hyperglycemia, unspecified (08/25/24) Unspecified abnormal findings in urine (08/25/24) Subjective Subjective Patient was seen and examined today, she had a PEG tube inserted today, I changed her medications from oral to G-tube. Objective Data Objective Data Vital Signs: Vital Signs Temp Pulse Resp BP Pulse Ox O2 Del Method O2 Flow Rate 97.5 F L 102 H 16 171/70 H 93 Room Air 2 08/28/24 16:15 08/28/24 16:15 08/28/24 16:15 08/28/24 16:15 08/28/24 16:15 08/28/24 16:15 08/28/24 11:50 Oxygen Flow Rate (L/min) 2 Oxygen Delivery Method Room Air Weight: 69 kg Body Mass Index (BMI) 27.8 Intake & Output: Intake and Output for Last 24 Hours 08/26/24 08/27/24 08/28/24 23:59 23:59 23:59 Intake Total 1000 / 1000 1000 / 1000 50 / 50 Output Total 400 / 800 1150 / 1310 510 / 510 Balance 600 / 200 -150 / -310 -460 / -460 Lab / Micro Data 08/28/24 03:47 08/28/24 03:47 Labs: Laboratory Results - last 24 hr 08/27/24 20:33: POC Glucose 195 H 08/28/24 03:47: WBC 9.4, RBC 3.88 L, Hgb 12.4, Hct 36.4 L, MCV 93.8, MCH 32.0, MCHC 34.1, RDW Std Deviation 45.1 H, RDW Coeff of Win 13.3, Plt Count 283, MPV 9.7, Immature Gran % (Auto) 0.300, Neut % (Auto) 68.3, Lymph % (Auto) 16.2 L, [place] % (Auto) 11.6 H, Eos % (Auto) 3.1, Baso % (Auto) 0.5, Absolute Neuts (auto) 6.4, Absolute Lymphs (auto) 1.53, Nucleated RBC % 0, Sodium 136, Potassium 3.8, Chloride 107, Carbon Dioxide 20.0 L, Anion Gap 9, BUN 13, Creatinine 0.64, Estim Creat Clear Calc 49.35, Est GFR (MDRD) Af Amer 115, Est GFR (MDRD) Non-Af 95, BUN/Creatinine Ratio 20.4 H, Glucose 209 H, Hemoglobin A1c 7.2 H, Calcium 9.2, TSH 10.600 H 08/28/24 05:49: POC Glucose 216 H 08/28/24 12:21: POC Glucose 241 H 08/28/24 16:44: POC Glucose 229 H Micro: Microbiology 08/26/24 06:35 Urine, Clean Catch Urine Culture - Final Staphylococcus aureus GPC Poss Enterococcus sp Mixed Gram Positive Organisms Physical Exam Narrative alert, oriented x3 and no apparent distress General Appearance: cooperative, well kempt and well developed Orientation / Consciousness: awake, oriented to person, oriented to place and oriented to time HEENT normocephalic, head/scalp atraumatic and moist oral mucous membranes Eyes PERRL, EOMs intact bilaterally and conjunctivae normal Neck supple, no JVD, thyroid normal and no carotid bruits General: trachea midline Resp normal respiratory effort, no retractions, no use of accessory muscles and clear to auscultation bilaterally Auscultation: Negative for rales, rhonchi or wheezes Cardio regular rate, regular rhythm, S1 normal heart sound, S2 normal heart sound, no murmurs, no rub and no gallops GI PEG tube in place Extremity no clubbing, cyanosis or edema Skin no rashes or lesions noted General Skin Exam: no breakdown Neuro oriented x3 and CN's II-XII intact bilaterally Neuro Narrative: Patient has right upper extremity weakness and right lower extremity weakness as compared with the left. Patient's speech pattern is slow and halting at times. Sensorium / Orientation: awake and alert Psych affect normal Assessment & Plan Assessment/Plan (1) Expressive aphasia: (2) Right sided weakness: PLAN: Plan 1. 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 PT and OT will see the patient, there is a tentative plan for the patient to go to the rehab unit at [facility] #2 expressive aphasia secondary to #1-speech therapy will see the patient, she is currently n.p.o. #3 type 2 diabetes-blood sugars will be monitored, sliding scale insulin will be administered as needed #4 chronic diastolic congestive heart failure-patient is stable at this time, her Lasix is being held #5 essential hypertension-patient's blood pressure medications are being held due to her n.p.o. status, blood pressure will be monitored #6 oropharyngeal dysphagia-secondary to recent stroke, patient had a PEG tube inserted today, expect tube feedings to begin tomorrow Total clinical time spent by myself addressing the patient's medical issues, reviewing all of her data, and collaborating with patient's care team: 35 minutes Charges/Coding Visit Charges Inpatient E&M: 54455 Subs Hosp L2
[2024-08-28] MEDS: Famotidine 20 MG Tablet 40 MG GT (20:35)
[2024-08-28] MEDS: Insulin Lispro 100 UNIT/ML INSULN.PEN SC (20:36)
[2024-08-28] MEDS: Venlafaxine HCl 75 MG Tablet GT (20:53)
[2024-08-28] MEDS: Gabapentin 400 MG Capsule GT (20:53)
[2024-08-29] VITALS (8 sets, daily range): BP systolic 142–185; BP diastolic 51–79; PULSE 92–103; RESP 14–18; TEMP 35.8–36.3; O2SAT 94–97; BMI 27.8
[2024-08-29] MEDS: hydrALAZINE 20 MG/ML Vial 10 MG IV ×2 (03:34→11:49)
[2024-08-29] MEDS: Insulin Lispro 100 UNIT/ML INSULN.PEN SC (06:47)
[2024-08-29 07:07] LABS: Bedside Glucose 224 mg/dL (74-106)
[2024-08-29] MEDS: Cholecalciferol (VIT D3) 25 MCG TABLET (1,000 UNITS) GT (09:24)
[2024-08-29] MEDS: Gabapentin 400 MG Capsule GT (09:24)
[2024-08-29] MEDS: Famotidine 20 MG Tablet 40 MG GT (09:24)
[2024-08-29] MEDS: Venlafaxine HCl 75 MG Tablet GT (09:25)
[2024-08-29] MEDS: Atorvastatin Calcium 40 MG Tablet GT (09:25)
[2024-08-29] MEDS: Enoxaparin 40 MG/0.4 ML Syringe SC (09:26)
[2024-08-29] MEDS: Clopidogrel Bisulfate 75 MG Tablet GT (09:26)
[2024-08-29] MEDS: Aspirin 81 MG TAB.CHEW GT (09:30)
--- NOTE | 2024-08-29 09:44 | TREXTCAR_ITS ---
Diet Diet Order/Speech Therapy: 08/28/24 00:01 Diet: Nothing Per Oral Diet Comments: NO LIQUIDS, fully alert for po intake, Direct Staff Supervision Tube Feed: Per nutritional services Routine Orders/Code Status Code Status: Full Code DC O2, CPAP, BIPAP needs Home O2 Discharge instructions: No Wound(s) ABD: Wound Type: Surgical Incision Therapies Weight Bearing: Full weight bearing Physical Therapy: Eval and Treat Occupational Therapy: Eval and Treat Speech Therapy: Eval and Treat Problem/Diagnosis (1) Expressive aphasia: Status: Acute Code(s): R47.01 - Aphasia (2) Right sided weakness: Status: Acute Code(s): R53.1 - Weakness Plan 1. 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 PT and OT will see the patient, she will [facility] for [facility] rehab services. #2 expressive aphasia secondary to #1-speech therapy will see the patient, she is currently n.p.o. #3 type 2 diabetes-blood sugars will be monitored, sliding scale insulin will be administered as needed #4 chronic diastolic congestive heart failure-patient is stable at this time, her Lasix is being held #5 essential hypertension-patient's blood pressure medications are being held due to her n.p.o. status, blood pressure will be monitored #6 oropharyngeal dysphagia-secondary to recent stroke, patient will need PEG tube placed, an attempt will be made tomorrow to place a PEG tube Total clinical time spent by myself addressing the patient's medical issues, reviewing all of her data, and collaborating with patient's care team: 35 minutes Allergies/Procedures Done in Hospital Allergies shrimp Allergy (Unknown, Verified 08/27/24 12:01) unknown adhesive tape Allergy (Verified 08/27/24 12:01) Hives/Rash ciprofloxacin (From Cipro) Allergy (Verified 08/27/24 12:01) Photosensitivity & dermatitis pioglitazone (From Actos) Allergy (Verified 08/27/24 12:01) Unknown codeine Adverse Reaction (Verified 08/27/24 12:01) Upset Stomach ibandronate sodium (From Boniva) Adverse Reaction (Verified 08/27/24 12:01) GI upset/esophageal burning ibuprofen Adverse Reaction (Verified 08/27/24 12:01) GI upset lansoprazole Adverse Reaction (Verified 08/27/24 12:01) Diarrhea metformin Adverse Reaction (Verified 08/27/24 12:01) Diarrhea miconazole (From Neosporin AF) Adverse Reaction (Verified 08/27/24 12:01) Rash/Blisters nabumetone (From Relafen) Adverse Reaction (Verified 08/27/24 12:01) GI upset pantoprazole (From Protonix) Adverse Reaction (Verified 08/27/24 12:01) Diarrhea sucralfate (From Carafate) Adverse Reaction (Verified 08/27/24 12:01) feels poorly Procedures: Peg tube placement Type of Care/Length of Stay Estimated LOS: Convalescent Care Less Than 30 days Type of Care Needed: Skilled Rehab Potential: Good Prognosis: Good Additional Orders/Day of Discharge H&P will serve as current which was dated: 08/25/24 Day of Discharge: 08/29/24 Dietary and Speech Recommendations Dietitian Recommendations/Changes: Recommend advance diet as deemed safe for oral intake to 1600 calorie/consistent carbohydrate; cardiac. Consult RD for enteral nutrition support if PO remains contraindicated for nutrition; will order and manage TF as indicated. Trend weights closely. Discharge Plan Admission Admit Date/Time: 08/25/24 13:58 Primary Reason for Your Visit: Acute stroke Attending Provider: Christian Hollingsworth Primary Care Provider: Emily Yun Consulting Providers: David Vila; Maye Bahena; Sarah Miller; Katia Hui; Nissa Damon; Lul Buckley; Edilma Fermin; Ilya Guidry; Nghia Torres; Germán Zurita; Mallory Brown; Amaury Youngblood; Eulalia Rangel; Lina Mcdonald; Kimberli Fernando; Amador House; Tony Colon; Abdullahi Worley; Leonie Adhikari; Marcia Ugalde; Daya Adhikari Discharge Orders/Prescriptions Prescriptions: New atorvastatin 40 mg Tablet 40 mg G-tube DAILY Qty: 0 0RF acetaminophen 325 mg Tablet 650 mg G-tube Q4H PRN PRN (Reason: Pain 1-10 Or Fever>99.6) Qty: 0 0RF venlafaxine 75 mg Tablet 75 mg G-tube BID Qty: 0 0RF sennosides-docusate sodium [Stimulant Laxative Plus] 8.6-50 mg Tablet 2 tab G-tube BID PRN PRN (Reason: Constipation) Qty: 0 0RF gabapentin 400 mg Capsule 400 mg G-tube BID Qty: 0 0RF clopidogrel 75 mg Tablet 75 mg G-tube DAILY Qty: 0 0RF famotidine 20 mg Tablet 40 mg G-tube BID Qty: 0 0RF aspirin 81 mg Tablet,Chewable 81 mg G-tube BREAKFAST Qty: 0 0RF enoxaparin 40 mg/0.4 mL Syringe 40 mg subcut DAILY Qty: 0 0RF insulin lispro [Humalog KwikPen Insulin] 100 unit/mL Insulin Pen See Protocol subcut ACHS Qty: 0 0RF Protocol: 3. Sliding Scale Insulin Med Dosing Condition: 150-189 mg/dl = 1 unit Condition: 190-229 mg/dl = 2 units Condition: 230-269 mg/dl = 3 units Condition: 270-309 mg/dl = 4 units Condition: 310-349 mg/dl = 5 units Condition: 350-399 mg/dl = 6 units Condition: 400-449 mg/dl = 7 units Condition: Greater than 449 call physician Protocol Text: Suggested for: - Patients on Total Daily Insulin Dose of 37-55 units - Obese, infected, or steroid patients MEDIUM DOSING ALGORITHIM menthol [Blue Gel] 2 % Gel 1 applic topical TID PRN PRN (Reason: Pain 1-10/Inflammation) Qty: 0 0RF cholecalciferol (vitamin D3) 25 mcg (1,000 unit) Tablet 25 mcg G-tube DAILY Qty: 0 0RF Discontinued atorvastatin 20 mg tablet 20 mg PO QDAY cholecalciferol (vitamin D3) 1,000 UNIT tablet 1,000 unit PO DAILY gabapentin 300 mg Capsule 300 mg PO BID 30 Days Qty: 60 0RF menthol [Blue Gel] 2 % Gel 1 applic topical TID PRN PRN (Reason: Pain 1-10/Inflammation) Qty: 0 0RF No Action fesoterodine [Toviaz] 4 mg tablet extended release 24 hr 8 mg PO DAILY albuterol sulfate 90 mcg/actuation HFA aerosol inhaler 2 puff inhalation Q6H PRN (Reason: shortness of breath or wheezing) Qty: 6.7 3RF duloxetine 60 mg capsule,delayed release(DR/EC) 60 mg PO QHS Qty: 90 2RF esomeprazole magnesium 40 MG capsule,delayed release(DR/EC) 40 mg PO DAILY aspirin 81 MG tablet,chewable 81 mg PO DAILY@0800 Qty: 30 0RF Lactobacillus acidophilus 500 million cell capsule 500 mmu cells PO DAILY furosemide 20 mg tablet 20 mg PO DAILY PRN (Reason: edema) insulin glargine-yfgn [Semglee(insulin glarg-yfgn)Pen] 100 unit/mL (3 mL) insulin pen 22 unit subcut QHS insulin lispro [Humalog KwikPen Insulin] 100 unit/mL Insulin Pen 15 unit subcut TIDAC Qty: 15 0RF insulin glargine-yfgn 100 unit/mL (3 mL) Insulin Pen 20 unit subcut BID Qty: 15 0RF insulin lispro [Humalog KwikPen Insulin] 100 unit/mL Insulin Pen See Protocol subcut ACHS Qty: 0 0RF Protocol: 3. Sliding Scale Insulin Med Dosing Condition: 150-189 mg/dl = 1 unit Condition: 190-229 mg/dl = 2 units Condition: 230-269 mg/dl = 3 units Condition: 270-309 mg/dl = 4 units Condition: 310-349 mg/dl = 5 units Condition: 350-399 mg/dl = 6 units Condition: 400-449 mg/dl = 7 units Condition: Greater than 449 call physician Protocol Text: - Use for Total Daily Dose of Insulin 37-55 units - Obsese, infected, or steroid patients MEDIUM DOSING ALGORITHIM metoprolol succinate 100 mg tablet extended release 24 hr 100 mg PO DAILY Qty: 1 0RF Rx Instructions: start on 08/06/24 lorazepam 1 mg tablet 1 mg PO DAILY metoprolol succinate 200 mg tablet extended release 24 hr 200 mg PO DAILY rosuvastatin 10 mg tablet 10 mg PO QHS pyridoxine (vitamin B6) 250 mg tablet 250 mg PO DAILY Cranberry Plus Vitamin C 140-100 mg capsule 1 cap PO TID (DME) pen needle, diabetic [BD Ultra-Fine Micro Pen Needle] 32 gauge x 1/4 needle See Rx Instructions .ROUTE .MEDSUPPLY Qty: 450 1RF Rx Instructions: 4x/day (DME) OneTouch Verio test strips Strip See Rx Instructions .ROUTE .MEDSUPPLY Qty: 100 3RF Rx Instructions: daily Other Ambulatory Orders: 30 Day Event Recorder Preventi (Routine) Timeframe: 1 Day Facility: [facility] - Location: Cardiovascular Services Ordered By: Dr. Christian Hollingsworth Referrals / Follow Up: Emily Yun MD [Primary Care Provider] - Disposition Disposition (needs filled in before D/C Order can be placed): Inpatient Rehab Unit/Facility
--- NOTE | 2024-08-29 10:10 | PCM.DC.SUM ---
Providers Date of Admission: 08/25/24 Date of Discharge: 08/29/24 Primary Care Physician: Dr. Emily Yun MD Consultations 08/25/24 15:02 Consult: Tele-Neurology Routine Consulting Provider: [facility] Reason for Consult: Acute Ischemic Stroke/TIA EMERGENT Consult: No Notified: Yes Date Notified: 08/25/24 Time Notified: 15:13 Method of Notification: Answering Service Nursing Unit Staff Notify [facility] of Tele-Neurology Consult: Yes 08/27/24 12:13 Consult: Gastroenterology Routine Consulting Provider: [facility] Reason for Consult: PEG tube needed EMERGENT Consult: No Notified: Yes Date Notified: 08/27/24 Time Notified: 12:13 Method of Notification: Verbal Reason For Visit: EXPRESSIVE APHASIA, GENERAL WEAKNESS Diagnosis Discharge Diagnosis (1) Expressive aphasia: Status: Acute Code(s): R47.01 - Aphasia (2) Right sided weakness: Status: Acute Code(s): R53.1 - Weakness Plan 1. 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 PT and OT will see the patient, there is a tentative plan for the patient to go to the rehab unit at [facility] #2 expressive aphasia secondary to #1-speech therapy will see the patient, she is currently n.p.o. #3 type 2 diabetes-blood sugars will be monitored, sliding scale insulin will be administered as needed #4 chronic diastolic congestive heart failure-patient is stable at this time, her Lasix is being held #5 essential hypertension-patient's blood pressure medications are being held due to her n.p.o. status, blood pressure will be monitored #6 oropharyngeal dysphagia-secondary to recent stroke, patient had a PEG tube inserted today, expect tube feedings to begin tomorrow Total clinical time spent by myself addressing the patient's medical issues, reviewing all of her data, and collaborating with patient's care team: 35 minutes Medications at Discharge Home Medications esomeprazole magnesium 40 mg capsule,delayed release 40 mg PO DAILY gerd 01/01/20 pen needle, diabetic 32 gauge x 1/4 (BD Ultra-Fine Micro Pen Needle) #450 ea 12/14/21 blood sugar diagnostic (BebitosTouch Verio test strips) #100 ea 12/25/22 albuterol sulfate 90 mcg/actuation aerosol inhaler 2 puff inhalation Q6H PRN shortness of breath or wheezing #6.7 grams 03/07/23 cranberry concentrate-ascorbic acid 140 mg-100 mg capsule (Cranberry Plus Vitamin C) 1 cap PO TID Supplement 02/17/24 duloxetine 60 mg capsule,delayed release 60 mg PO QHS mood #90 caps 05/26/24 Lactobacillus acidophilus 500 million cell capsule 500 mmu cells PO DAILY health supplement 07/10/24 furosemide 20 mg tablet 20 mg PO DAILY PRN edema 08/03/24 insulin glargine-yfgn 100 unit/mL (3 mL) subcutaneous pen (Semglee (insulin glargine-yfgn) Pen) 22 unit subcut QHS diabetes mellitus 08/03/24 insulin glargine-yfgn 100 unit/mL (3 mL) subcutaneous pen 20 unit (0.2 mL) subcut BID t2dm #15 mL 08/06/24 insulin lispro 100 unit/mL subcutaneous pen (Humalog KwikPen (U-100) Insulin) 15 unit (0.15 mL) subcut TIDAC T2DM #15 mL 08/06/24 metoprolol succinate 100 mg tablet,extended release 24 hr 100 mg PO DAILY HTN #1 TAB 08/06/24 lorazepam 1 mg tablet 1 mg PO DAILY anxiety 08/07/24 metoprolol succinate 200 mg tablet,extended release 24 hr 200 mg PO DAILY HTN 08/07/24 pyridoxine (vitamin B6) 250 mg tablet 250 mg PO DAILY Suplement 08/07/24 rosuvastatin 10 mg tablet 10 mg PO QHS HLD 08/07/24 acetaminophen 325 mg tablet 650 mg (2 x 325 mg) G-tube Q4H PRN PRN Pain 1-10 Or Fever>99.6 #0 tabs 08/29/24 aspirin 81 mg chewable tablet 81 mg G-tube BREAKFAST Heart health #0 tabs 08/29/24 atorvastatin 40 mg tablet 40 mg G-tube DAILY Cholesterol #0 tabs 08/29/24 cholecalciferol (vitamin D3) 25 mcg (1,000 unit) tablet 25 mcg G-tube DAILY supplement #0 tabs 08/29/24 clopidogrel 75 mg tablet 75 mg G-tube DAILY Blood thinner #0 tabs 08/29/24 enoxaparin 40 mg/0.4 mL subcutaneous syringe 40 mg (0.4 mL) subcut DAILY Blood thinner #0 mL 08/29/24 famotidine 20 mg tablet 40 mg (2 x 20 mg) G-tube BID GERD #0 tabs 08/29/24 gabapentin 400 mg capsule 400 mg G-tube BID RLS #0 caps 08/29/24 insulin lispro 100 unit/mL subcutaneous pen (Humalog KwikPen (U-100) Insulin) 1 sliding scale dose subcut ACHS Blood sugar 08/29/24 insulin lispro 100 unit/mL subcutaneous pen (Humalog KwikPen (U-100) Insulin) See Protocol subcut ACHS Blood sugar #0 mL 08/29/24 menthol 2 % topical gel (Blue Gel) 1 applic topical TID PRN PRN Pain 1-10/Inflammation #0 grams 08/29/24 sennosides 8.6 mg-docusate sodium 50 mg tablet (Stimulant Laxative Plus) 2 tab G-tube BID Constipation 08/29/24 venlafaxine 75 mg tablet 75 mg G-tube BID Mood #0 tabs 08/29/24 Hospital Course Operations None Procedures 2-D Echocardiogram and Peg tube placement Summary of Care Provided Minutes Spent on Discharge: 32 Hospital Course: This 84-year-old white female was seen in the emergency room at [facility] services due to concerns of a stroke. Patient had a recent MRI of the brain while in TCU that showed a subacute punctate infarct of the white matter in the anterior left parietal lobe. Patient presented as a stroke alert, she was noted to have expressive aphasia and was examined in the CT room since she went straight from TCU to radiology. Patient's NIH score was 7, her CAT scan appeared to be unchanged from July 2024. 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 Neck CTA showed severe atherosclerotic plaque and stenosis at the origin of the right internal carotid artery of the neck. Teleneurology stated that the patient was not a candidate for thrombolysis. Patient was admitted to PCU and an MRI of the brain was obtained which showed an acute lacunar infarct in the left pontine body. PT and OT saw the patient as well as teleneurology, it was recommended the patient remain on Plavix and aspirin and that a 30-day Holter monitor be obtained on discharge from the hospital. Patient was seen by speech therapy and had oropharyngeal dysphagia and was not able to take in any type of liquids. Gastroenterology was contacted and patient consented to a PEG tube. On 08/29/2024, patient was seen and examined: On examination she appeared in good health and spirits, she does not appear to be in any distress. Vital signs as documented. Skin warm and dry and without overt rashes. Neck without JVD, thyroid appears normal, trachea is midline, neck is supple. Lungs clear, normal air movement was noted. Heart exam notable for regular rhythm, normal sounds and absence of murmurs, rubs or gallops. Abdomen unremarkable and without evidence of organomegaly, masses, or abdominal aortic enlargement, bowel sounds are present in all 4 quadrants, no abdominal tenderness was noted. Extremities nonedematous, no cyanosis was noted, no clubbing was noted. Neuro: Cranial nerves II through XII are grossly intact, no focal motor deficits were noted, sensation to light touch and pinprick is intact, motor exam 5/5 throughout. Patient has some expressive aphasia. Psych: Patient is alert and oriented x3, she does not appear anxious or depressed, she does not appear agitated. Patient appeared stable on 08/29/2024 for discharge to the rehab unit at [facility]. Weight / BMI Weight Weight: 69 kg Body Mass Index (BMI) 27.8 ABG / Lab / Microbiology Data 08/28/24 03:47 08/28/24 03:47 Laboratory: Laboratory Results - last 24 hr 08/28/24 12:21: POC Glucose 241 H 08/28/24 16:44: POC Glucose 229 H 08/29/24 06:46: POC Glucose 224 H Microbiology: Microbiology 08/26/24 06:35 Urine, Clean Catch Urine Culture - Final Staphylococcus aureus GPC Poss Enterococcus sp Mixed Gram Positive Organisms D/C Instructions DC O2, CPAP, BIPAP Needs Home O2 Discharge instructions: No Meaningful Use Info Meaningful Use Meaningful Use Diagnoses (Choose all that apply): Ischemic CVA CVA Therapy Assessed for PT,OT and/or ST?: Yes Ischemic Stroke Antithrombotic order at d/c?: Yes Dx of Atrial fib/flutter?: No Anticoagulant at discharge?: No Reason anticoagulant not ordered: Treatment not Indicated Statin Dosing Therapy Reference: STATIN DOSE THERAPY REFERENCE: * Patients > 75 years receive moderate or high dose statin therapy. * Patients 75 years or YOUNGER should receive HIGH intensity statin dose unless contraindicated. You will be required to document reason for non-treatment if statin daily dose does not meet guidelines. HIGH DOSE STATIN THERAPY DAILY Atorvastatin > than or = to 40 mg Rosuvastatin > than or = to 20 mg Amlodipine + Atorvastatin > than or = to 2.5/40 mg Ezetimibe + Simvastatin 10/80 mg Simvastatin 80mg Statins at discharge?: Yes Primary Dx Acute Ischemic CVA?: Yes IV thrombolytic ordered during stay?: No Reason IV thrombolytic not ordered: Treatment not Indicated Discharge Plan Admission Admit Date/Time: 08/25/24 13:58 Primary Reason for Your Visit: Acute stroke Attending Provider: Christian Hollingsworth Primary Care Provider: Emily Yun Consulting Providers: David Vila; Maye Bahena; Sarah Miller; Katia Hui; Nissa Damon; Lul Buckely; Edilma Fermin; Ilya Guidry; Nghia Torres; Germán Zurita; Mallory Brown; Amaury Youngblood; Eulalia Rangel; Lina Mcdonald; Kimberli Fernando; Amador House; Tony Colon; Abdullahi Worley; Leonie Adhikari; Marcia Ugalde; Daya Adhikari Discharge Orders/Prescriptions Prescriptions: New atorvastatin 40 mg Tablet 40 mg G-tube DAILY Qty: 0 0RF acetaminophen 325 mg Tablet 650 mg G-tube Q4H PRN PRN (Reason: Pain 1-10 Or Fever>99.6) Qty: 0 0RF venlafaxine 75 mg Tablet 75 mg G-tube BID Qty: 0 0RF gabapentin 400 mg Capsule 400 mg G-tube BID Qty: 0 0RF clopidogrel 75 mg Tablet 75 mg G-tube DAILY Qty: 0 0RF famotidine 20 mg Tablet 40 mg G-tube BID Qty: 0 0RF aspirin 81 mg Tablet,Chewable 81 mg G-tube BREAKFAST Qty: 0 0RF enoxaparin 40 mg/0.4 mL Syringe 40 mg subcut DAILY Qty: 0 0RF insulin lispro [Humalog KwikPen Insulin] 100 unit/mL Insulin Pen See Protocol subcut ACHS Qty: 0 0RF Protocol: 3. Sliding Scale Insulin Med Dosing Condition: 150-189 mg/dl = 1 unit Condition: 190-229 mg/dl = 2 units Condition: 230-269 mg/dl = 3 units Condition: 270-309 mg/dl = 4 units Condition: 310-349 mg/dl = 5 units Condition: 350-399 mg/dl = 6 units Condition: 400-449 mg/dl = 7 units Condition: Greater than 449 call physician Protocol Text: Suggested for: - Patients on Total Daily Insulin Dose of 37-55 units - Obese, infected, or steroid patients MEDIUM DOSING ALGORITHIM menthol [Blue Gel] 2 % Gel 1 applic topical TID PRN PRN (Reason: Pain 1-10/Inflammation) Qty: 0 0RF cholecalciferol (vitamin D3) 25 mcg (1,000 unit) Tablet 25 mcg G-tube DAILY Qty: 0 0RF Discontinued atorvastatin 20 mg tablet 20 mg PO QDAY cholecalciferol (vitamin D3) 1,000 UNIT tablet 1,000 unit PO DAILY gabapentin 300 mg Capsule 300 mg PO BID 30 Days Qty: 60 0RF menthol [Blue Gel] 2 % Gel 1 applic topical TID PRN PRN (Reason: Pain 1-10/Inflammation) Qty: 0 0RF No Action albuterol sulfate 90 mcg/actuation HFA aerosol inhaler 2 puff inhalation Q6H PRN (Reason: shortness of breath or wheezing) Qty: 6.7 3RF duloxetine 60 mg capsule,delayed release(DR/EC) 60 mg PO QHS Qty: 90 2RF esomeprazole magnesium 40 MG capsule,delayed release(DR/EC) 40 mg PO DAILY Lactobacillus acidophilus 500 million cell capsule 500 mmu cells PO DAILY furosemide 20 mg tablet 20 mg PO DAILY PRN (Reason: edema) insulin glargine-yfgn [Semglee(insulin glarg-yfgn)Pen] 100 unit/mL (3 mL) insulin pen 22 unit subcut QHS insulin lispro [Humalog KwikPen Insulin] 100 unit/mL Insulin Pen 15 unit subcut TIDAC Qty: 15 0RF insulin glargine-yfgn 100 unit/mL (3 mL) Insulin Pen 20 unit subcut BID Qty: 15 0RF metoprolol succinate 100 mg tablet extended release 24 hr 100 mg PO DAILY Qty: 1 0RF Rx Instructions: start on 08/06/24 lorazepam 1 mg tablet 1 mg PO DAILY metoprolol succinate 200 mg tablet extended release 24 hr 200 mg PO DAILY rosuvastatin 10 mg tablet 10 mg PO QHS pyridoxine (vitamin B6) 250 mg tablet 250 mg PO DAILY Cranberry Plus Vitamin C 140-100 mg capsule 1 cap PO TID sennosides-docusate sodium [Stimulant Laxative Plus] 8.6-50 mg Tablet 2 tab G-tube BID insulin lispro [Humalog KwikPen Insulin] 100 unit/mL Insulin Pen 1 sliding scale dose subcut [facility] Protocol: 3. Sliding Scale Insulin Med Dosing Condition: 150-189 mg/dl = 1 unit Condition: 190-229 mg/dl = 2 units Condition: 230-269 mg/dl = 3 units Condition: 270-309 mg/dl = 4 units Condition: 310-349 mg/dl = 5 units Condition: 350-399 mg/dl = 6 units Condition: 400-449 mg/dl = 7 units Condition: Greater than 449 call physician Protocol Text: - Use for Total Daily Dose of Insulin 37-55 units - Obsese, infected, or steroid patients MEDIUM DOSING ALGORITHIM (DME) pen needle, diabetic [BD Ultra-Fine Micro Pen Needle] 32 gauge x 1/4 needle See Rx Instructions .ROUTE .MEDSUPPLY Qty: 450 1RF Rx Instructions: 4x/day (DME) OneTouch Verio test strips Strip See Rx Instructions .ROUTE .MEDSUPPLY Qty: 100 3RF Rx Instructions: daily Other Ambulatory Orders: 30 Day Event Recorder Preventi (Routine) Timeframe: 1 Day Facility: [facility] - Location: Cardiovascular Services Ordered By: Dr. Christian Hollingsworth Referrals / Follow Up: Emily Yun MD [Primary Care Provider] - Disposition Disposition (needs filled in before D/C Order can be placed): Inpatient Rehab Unit/Facility Charges/Coding Visit Charges Inpatient E&M: 96581 Disch Hosp >30min
--- NOTE | 2024-08-29 11:36 | CASEMGMT ---
Patient is ready for discharge to [facility] Acute Rehab facility. Nohemy DEMPSEY
--- NOTE | 2024-08-29 11:43 | NURSING ---
report called to Rehab
[2024-08-29] MEDS: 0.9% Saline Lock 10 ML Syringe IV (11:49)
[2024-08-30 17:17] LABS: Bedside Glucose 251 mg/dL (74-106)
== END 2024-08-29 13:02 | DRG 65 ==
LOC: ED 13:39 → PCU 15:36
PROVIDERS: Anesthesiology; Internal Medicine Gastroenterology; Admitting Provider Internal Medicine; Emergency Provider Emergency Medicine; PCP Internal Medicine; Visit Provider Internal Medicine
PROC: 0DJ08ZZ Inspection of Upper Intestinal Tract, Via Natural or Artificial Opening Endoscopic (ICD-10-PCS; CPT 43235; principal; 2024-08-28 10:55)
DX: I63.81 Other cerebral infarction due to occlusion or stenosis of small artery (principal); G81.91 Hemiplegia, unspecified affecting right dominant side; I50.32 Chronic diastolic (congestive) heart failure; I11.0 Hypertensive heart disease with heart failure; I69.320 Aphasia following cerebral infarction; I48.91 Unspecified atrial fibrillation; I65.03 Occlusion and stenosis of bilateral vertebral arteries; G43.909 Migraine, unspecified, not intractable, without status migrainosus; E11.40 Type 2 diabetes mellitus with diabetic neuropathy, unspecified; I70.0 Atherosclerosis of aorta; K25.9 Gastric ulcer, unspecified as acute or chronic, without hemorrhage or perforation; Z93.1 Gastrostomy status; I69.322 Dysarthria following cerebral infarction; I65.21 Occlusion and stenosis of right carotid artery; Z79.4 Long term (current) use of insulin; M48.02 Spinal stenosis, cervical region; E78.5 Hyperlipidemia, unspecified; K21.9 Gastro-esophageal reflux disease without esophagitis; E11.65 Type 2 diabetes mellitus with hyperglycemia; H35.30 Unspecified macular degeneration; Z79.84 Long term (current) use of oral hypoglycemic drugs; Z79.1 Long term (current) use of non-steroidal anti-inflammatories (NSAID); Z79.83 Long term (current) use of bisphosphonates; Z79.02 Long term (current) use of antithrombotics/antiplatelets; Z79.82 Long term (current) use of aspirin; Z80.0 Family history of malignant neoplasm of digestive organs; R29.707 NIHSS score 7; Z86.19 Personal history of other infectious and parasitic diseases; Z99.89 Dependence on other enabling machines and devices; R05.3 Chronic cough
CPT/HCPCS: 36415; 70450; 70496; 70498; 70551; 71045; 74230; 80048; 80053; 80061; 81001; 82962; 83036; 83735; 84100; 84443; 84484; 85025; 85610; 85730; 87077; 87086; 87088; 87186; 92526; 92610; 92611; 93005; 93308; 93880; 94668; 94762; 97110; 97163; 97166; 97530; 97802; 99285; Q9967; A4216; J2405

== ENCOUNTER 2024-08-29 13:12 | Inpatient (IN) | payer MEDICARE, OTHER, SELFPAY ==
--- NOTE | 2024-08-29 14:08 | EX.PCM.HP.RE ---
HPI - General General Date of Admission: 08/29/24 Date of Service: 08/29/24 Chief Complaint: Poststroke debility HPI Narrative CHRISTINA IVORY, is a 84 YO F known to me from previous admission to TCU in July. Past medical history is significant for hypertension, diabetes mellitus type 2, hyperlipidemia, chronic kidney disease, history of multiple CVA's (the first 3 years ago), anxiety/depression, GERD, history of migraines, chronic mild cognitive impairment, hypothyroidism, Lumbar radiculopathy, restless leg syndrome and 2 recent strokes. She had an MRI of the brain on 08/12/2024 that showed subacute punctate infarcts of the white matter of the anterior left parietal lobe. She was admitted to TCU for rehabilitation then developed acute R hemiparesis and confusion on 08/25/2024. MRI on that date showed an acute lacunar infarct in the left pontine body. She has advanced periventricular white matter ischemic changes on imaging studies of the brain over the past few years. She was transferred to PCU. Tele-neurology consult was obtained. Asa + Plavix (for 21 days) was recommended for a total of 21 days and then continuing with ASA alone. A 30 day event monitor was also recommended given the recent strokes in different territories of the brain t0 r/o AFIB. Goal BP was recommended to be < 140/80. Echocardiogram on 07/11/2024 showed a normal left ventricular ejection fraction of 75% with stage I diastolic dysfunction. There was mild diffuse mitral valve thickening and mild focal aortic valve thickening. Both atria are of normal size. The most recent TTE was on 08/26/2024 and there were no significant changes but there was documentation that the previous bubble study had been negative. I reviewed all echocardiograms on the EMR from 2017 forward and I cannot find a bubble study. Carotid ultrasound showed less than 50% stenosis in both internal carotid arteries with patent and antegrade vertebrals bilaterally. She has never had a CORDELL. Due to severe dysphagia a PEG tube was inserted on 08/28/[address] Abhinav Monsivais. She was transferred to the acute inpatient rehab unit at [facility] 08/29/2024 for 3 hours of therapy daily to restore function/independence at or near her level prior to the stroke on 08/25/2024. [facility] Medical History (Updated 01/20/25 @ 10:[address] Nikky Pastor, DO) Grade I diastolic dysfunction Debility Carcinoid bronchial adenoma of left lung Herniation of intervertebral disc at L3-L4 level Lumbar scoliosis Abnormal finding on thyroid function test Hypoxia Chronic prescription benzodiazepine use Acute ischemic stroke Diabetes mellitus with hyperglycemia, with long-term current use of insulin Wears glasses MRSA infection History of Clostridium difficile infection Cancer Thyroid disease Achilles tendinitis Insulin dependent diabetes mellitus Walker as ambulation aid Arthritis Bladder disease Easy bruising Injury of back Back pain Unsteady gait Dietary restriction History of hiatal hernia Gastric reflux Non-smoker Chronic cough Hoarseness Shortness of breath on exertion Leg cramps History of edema History of echocardiogram History of stress test Left lumbar radiculopathy Overweight (BMI 25.0-29.9) Migraine without aura, not intractable, without status migrainosus 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 disease Macular degeneration 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 Acute gastritis Enlargement of lymph nodes Migraine Restless legs GERD (gastroesophageal reflux disease) Essential (primary) hypertension Acute chest pain Home Medications ?Medication ?Instructions ?Recorded ?Last Taken ?Type esomeprazole magnesium 40 mg 40 mg PO DAILY gerd 01/01/20 06/13/23 History capsule,delayed release pen needle, diabetic 32 gauge x #450 ea 12/14/21 Unknown Rx / (BD Ultra-Fine Micro Pen Needle) blood sugar diagnostic (OneTouch #100 ea 12/25/22 Unknown Rx Verio test strips) albuterol sulfate 90 mcg/actuation 2 puff inhalation Q6H PRN 03/07/23 Unknown Rx aerosol inhaler shortness of breath or wheezing #6.7 grams cranberry concentrate-ascorbic 1 cap PO TID Supplement 02/17/24 Unknown History acid 140 mg-100 mg capsule (Cranberry Plus Vitamin C) duloxetine 60 mg capsule,delayed 60 mg PO QHS mood #90 caps 05/26/24 Unknown Rx release Lactobacillus acidophilus 500 500 mmu cells PO DAILY health 07/10/24 Unknown History million cell capsule supplement furosemide 20 mg tablet 20 mg PO DAILY PRN edema 08/03/24 08/02/24 History insulin glargine-yfgn 100 unit/mL 22 unit subcut QHS diabetes 08/03/24 Unknown History (3 mL) subcutaneous pen (Semglee mellitus (insulin glargine-yfgn) Pen) insulin glargine-yfgn 100 unit/mL 20 unit (0.2 mL) subcut BID t2dm 08/06/24 08/07/24 Rx (3 mL) subcutaneous pen #15 mL insulin lispro 100 unit/mL 15 unit (0.15 mL) subcut TIDAC 08/06/24 Unknown Rx subcutaneous pen (Humalog KwikPen T2DM #15 mL (U-100) Insulin) metoprolol succinate 100 mg 100 mg PO DAILY HTN #1 TAB 08/06/24 Unknown Rx tablet,extended release 24 hr lorazepam 1 mg tablet 1 mg PO DAILY anxiety 08/07/24 Unknown History metoprolol succinate 200 mg 200 mg PO DAILY HTN 08/07/24 Unknown History tablet,extended release 24 hr pyridoxine (vitamin B6) 250 mg 250 mg PO DAILY Suplement 08/07/24 Unknown History tablet rosuvastatin 10 mg tablet 10 mg PO QHS HLD 08/07/24 Unknown History acetaminophen 325 mg tablet 650 mg (2 x 325 mg) G-tube Q4H PRN 08/29/24 Unknown Rx PRN Pain 1-10 Or Fever>99.6 #0 tabs aspirin 81 mg chewable tablet 81 mg G-tube BREAKFAST Heart 08/29/24 08/29/24 Rx health #0 tabs atorvastatin 40 mg tablet 40 mg G-tube DAILY Cholesterol #0 08/29/24 08/29/24 Rx tabs cholecalciferol (vitamin D3) 25 25 mcg G-tube DAILY supplement #0 08/29/24 08/29/24 Rx mcg (1,000 unit) tablet tabs clopidogrel 75 mg tablet 75 mg G-tube DAILY Blood thinner 08/29/24 08/29/24 Rx #0 tabs enoxaparin 40 mg/0.4 mL 40 mg (0.4 mL) subcut DAILY Blood 08/29/24 08/29/24 Rx subcutaneous syringe thinner #0 mL famotidine 20 mg tablet 40 mg (2 x 20 mg) G-tube BID GERD 08/29/24 08/29/24 Rx #0 tabs gabapentin 400 mg capsule 400 mg G-tube BID RLS #0 caps 08/29/24 08/29/24 Rx insulin lispro 100 unit/mL 1 sliding scale dose subcut ACHS 08/29/24 08/29/24 History subcutaneous pen (Humalog KwikPen Blood sugar (U-100) Insulin) insulin lispro 100 unit/mL See Protocol subcut ACHS Blood 08/29/24 Unknown Rx subcutaneous pen (Humalog KwikPen sugar #0 mL (U-100) Insulin) menthol 2 % topical gel (Blue Gel) 1 applic topical TID PRN PRN Pain 08/29/24 Unknown Rx 1-10/Inflammation #0 grams sennosides 8.6 mg-docusate sodium 2 tab G-tube BID Constipation 08/29/24 Unknown History 50 mg tablet (Stimulant Laxative Plus) venlafaxine 75 mg tablet 75 mg G-tube BID Mood #0 tabs 08/29/24 08/29/24 Rx Allergy/AdvReac Type Severity Reaction Status Date / Time shrimp Allergy Unknown unknown Verified 08/27/24 12:01 adhesive tape Allergy Hives/Rash Verified 08/27/24 12:01 ciprofloxacin (From Cipro) Allergy Photosensitivity Verified 08/27/24 12:01 & dermatitis pioglitazone (From Actos) Allergy Unknown Verified 08/27/24 12:01 codeine AdvReac Upset Verified 08/27/24 12:01 Stomach ibandronate sodium (From AdvReac GI Verified 08/27/24 12:01 Boniva) upset/esophageal burning ibuprofen AdvReac GI upset Verified 08/27/24 12:01 lansoprazole AdvReac Diarrhea Verified 08/27/24 12:01 metformin AdvReac Diarrhea Verified 08/27/24 12:01 miconazole (From Neosporin AdvReac Rash/Bliste Verified 08/27/24 12:01 AF) rs nabumetone (From Relafen) AdvReac GI upset Verified 08/27/24 12:01 pantoprazole (From Protonix) AdvReac Diarrhea Verified 08/27/24 12:01 sucralfate (From Carafate) AdvReac feels Verified 08/27/24 12:01 poorly Family History Father Lung cancer Colon cancer Mother Mesothelioma Hypertension Grandmother Heart disease Surgical History (Updated 09/01/24 @ 10:[address] Nikky Pastor DO) S/P lobectomy of lung Hx of colonoscopy Hx of right cataract extraction Hx of left cataract extraction History of lobectomy of lung History of lung biopsy H/O endoscopy Spinal injections S/P rotator cuff repair Social History household members: spouse housing: house pets and animals: No Smoking Status: Never smoker second hand exposure: No alcohol intake: current alcohol intake frequency: holidays/special occasions only substance use type: does not use ROS Review of Systems ROS Unobtainable: Denies due to encephalopathy, due to endotracheal tube, due to mental condition or due to mental status Constitutional Constitutional: Denies anorexia, change in weight, chills, fatigue, fever(s), night sweats or weakness Eyes Eyes: Denies blurry vision, change in vision, eye pain or loss of vision ENT HEENT: Denies abnormal hearing, dysphagia, headache(s), hearing loss, nasal congestion or sore throat Cardiovascular Cardiovascular: Denies chest pain, dyspnea on exertion, edema, lightheadedness, orthopnea, palpitations, paroxysmal nocturnal dyspnea or syncope Respiratory/Chest Respiratory/Chest: Denies cough, dyspnea, shortness of breath at rest, shortness of breath with exertion or wheezing Gastrointestinal Gastrointestinal: Denies abdominal pain, constipation, diarrhea, dyspepsia, hematemesis, hematochezia, nausea or vomiting Genitourinary Genitourinary: Denies dysuria, hematuria, nocturia, urinary frequency, urinary hesitancy, urinary incontinence or urinary urgency Musculoskeletal Musculoskeletal: Denies back pain, joint pain, joint swelling or neck pain Neurologic Neurologic: Denies confusion, disequilibrium, dizziness, focal weakness, headache(s), paresthesias, seizures or tremor(s) Psychiatric Psychiatric: Denies anxiety, depression, homicidal ideation or suicidal ideation Endocrine Endocrinology: Denies change in body appearance, polydipsia or polyuria Hematologic/Lymphatic Hematologic/Lymphatic: Denies easy bleeding, easy bruising or lymphadenopathy Allergic/Immunologic Allergic/Immunologic: Denies rhinitis, eczemia or asthma Indicators for Scoring Admitted with or Primary Diagnosis of CVA/Stroke: Yes Hx of CVA/Stroke: Yes Modified Burleson Score MRS Score at time of Evaluation: 4-Moderate/severe disability NIHSS NIHSS 1a. Level of Consciousness: Alert; keenly responsive 1b. LOC Questions: Answers BOTH questions correctly. 1c. LOC Commands: Performs both tasks correctly. 2. Best Gaze: Normal 3. Visual: No visual loss 4. Facial Palsy: Minor paralysis (flattened nasolabial fold, asymmetry on smiling) (Right facial droop) 5a. Left Arm: No drift; arm holds 90 (or 45) degrees for full 10 seconds 5b. Right Arm: Drift; arm drifts downward but doesn?t hit the bed 6a. Left Leg: No drift; leg holds 30-degree position for full 5 seconds 6b. Right Leg: No effort against gravity; leg falls to bed immediately (She is able to move the right leg from [id number] while laying on the bed. She has some plantarflexion and some dorsiflexion.) 7. Limb Ataxia: Present in 1 limb (has tremors in both UE's making it hard to check for ataxia. difficulty completing the task with the RUE due to weakness. No ataxia with the legs. ) 8. Sensory: Normal; no sensory loss 9. Best Language: No aphasia; normal 10. Dysarthria: Euen-to-[id number] dysarthria; 11. Extinction and Inattention: No abnormality Total: 7 Stroke Questions Stroke Team Activated: No Physical Exam Const alert and oriented x3 Constitutional Narrative: knew me immediately from when I cared for her on TCU. Oriented to person, place, time, month, year. speech is halting. General Appearance: cooperative, well kempt and well developed HEENT HEENT Narrative: MM are very dry and the tongue has an adherent white coating that appears to be consistent with thrush. Eyes PERRL, EOMs intact bilaterally, conjunctivae normal and no scleral icterus Eyes Narrative: No discharge from the eyes. Has intraocular lens implants. General Eye: normal appearance of both eyes Neck no JVD, No nodes and no carotid bruits General: trachea midline Chest Chest: symmetrical chest wall rise Resp normal respiratory effort, normal air movement, no use of accessory muscles and clear to auscultation bilaterally Resp Narrative: Not tachypneic. Effort and Inspection: able to speak in complete sentences Cardio regular rate, regular rhythm, S1 normal heart sound and S2 normal heart sound Cardio Narrative: Resting heart rate is elevated and in the 90s currently. She has a systolic MM heard at the 2nd RICS and it radiates to the LLSB and the apex. this was no present in July when I examnied her. GI normal to inspection, nondistended, normoactive bowel sounds, soft to palpation, non-tender, non-distended and no bruits GI Narrative: No guarding with palpation but, she has tenderness with palpation of the upper abdomen, joaquin the RUQ around the PEG side. The PEG site is nor erythematous and has no purulent DC. no CVA tenderness Narrative: Had a pure wick catheter on the acute side of the hospital Extremity no calf tenderness and no pedal edema Extremity Narrative: DP pulses are 2+ BL. Radial pulses are 2+ BL. Skin Skin Narrative: no rashes. she has a healing abrasion on the L distal LE. She has dry skin. Neuro oriented x3 Neuro Narrative: R facial droop. No sensory loss. Likely no ataxia.....I think the abnormality with testing for ataxia of the RUE is due to weakness and ant true ataxia. No extinction, no aphasia. No visual loss. Dysarthria is present. 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 Psych cooperative, denies hallucinations and denies suicidal ideation Psych Narrative: Does not seem anxious. Appearance: appropriate and well kempt Attitude: calm Activity / Motor Behavior: appropriate eye contact Results Lab / Micro Data 08/30/24 04:40 08/30/24 04:40 Assessment & Plan Assessment/Plan (1) Debility: (2) History of stroke: PLAN: L han on 08/25/24 (3) Dysphagia: QUALIFIERS: Dysphagia type: unspecified Qualified Code(s): R13.10 - Dysphagia, unspecified (4) Right hemiparesis: (5) Facial droop: (6) Paresthesia of right upper and lower extremity: (7) 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 disease: (8) Diabetes mellitus with hyperglycemia, with long-term current use of insulin: QUALIFIERS: Diabetes mellitus type: type 2 Qualified Code(s): E11.65 - Type 2 diabetes mellitus with hyperglycemia; 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 PLAN: uncontrolled at admission to rehab (9) Essential (primary) hypertension: (10) Hyperlipidemia: QUALIFIERS: Hyperlipidemia type: mixed hyperlipidemia Qualified Code(s): E78.2 - Mixed hyperlipidemia (11) Mild cognitive impairment: PLAN: Chronic (12) Overweight (BMI 25.0-29.9): (13) Anxiety and depression: (14) Polyneuropathy: (15) Grade I diastolic dysfunction: PLAN: Plan PLAN PT for gait stability OT for ADL's ST for evaluation Analgesics as needed Bowel protocol Fall precautions Assess for Anxiety/Depression GI prophylaxis -famotidine DVT prophylaxis with enoxaparin Follow up with PCP, neurology, cardiology following DC from IP Rehab AM lab including CMP, CBC, Mag and Phos was instructed to bring the 30-day event monitor to the hospital when he receives it in the mail. Jevity 1.5 at 30 cc/h and increase to 40 cc/h tomorrow with no residuals and to a goal of 45 cc/h on Sunday if no residuals. She is known to have insulin resistance and I expect her blood sugars are going to go up and we will need to restart glargine. Continue sliding scale insulin coverage every 6 hours for now and increase the sliding scale coverage to a medium scale. Nursing will notify me if the blood sugars are over 300. She is complaining of pain in the right lower extremity and is known to have chronic back pain with radicular pain. She was not taking the gabapentin for a few days secondary to dysphagia. Will continue gabapentin 400 mg twice daily for now. Add Roxanol for pain control today. Has tolerated morphine in the past with no adverse side effects. I reviewed the med list and the lab drawn yesterday. BUN and creatinine have improved with holding Lasix. She was previously on metoprolol 200 mg XL daily and now is on no beta-delphine so we will start metoprolol 25 mg per PEG every 8 hours and adjust as needed. Charges/Coding Visit Charges Inpatient E&M: 89015 Init Hosp L3
[2024-08-29 14:09] VITALS: BP 149/64; PULSE 108; RESP 17; TEMP 36.6; O2SAT 98; BMI 27.8
[2024-08-29] MEDS: Jevity 1.5 1,000 ML 30 ML GT (15:37)
[2024-08-29 15:57] LABS: Mucous, Urine 0 SEEN /hpf (<or=2+)
[2024-08-29 16:02] LABS: Color, Urine Yellow (Yellow); Glucose, Dipstick 100 mg/dl (Normal); Leukocyte Esterase-Dipstick 500 /ul (Negative); Nitrite-Dipstick Negative (Negative); Occult Blood-Urine 25 /ul (Negative); Protein-Dipstick 100 mg/dl (Negative); Specific Gravity, Urine 1.025 (1.002-1.030); Urine Bilirubin Dipstick Negative (Negative); Urine Clarity Sl. Cloudy (Clear); Urine Urobilinogen Normal (Normal)
[2024-08-29 16:28] LABS: Ketone-Dipstick 150 mg/dl (Negative)
[2024-08-29 16:44] LABS: Bacteria RARE /hpf (None Seen); Red Blood Cells-Urine 0-5 SEEN /hpf (0-5); Squamous Epithelial Cells - UA 0-5 SEEN /hpf (5-10); White Blood Cells 5-10 SEEN /hpf (0-5); Yeast-Urine 2+ /hpf (None Seen)
[2024-08-29 17:41] LABS: Anion Gap 11 (5-15); BUN 23 mg/dL (7-18); BUN/Creat Ratio 29.9 RATIO (10-20); Calcium,Total 9.8 mg/dL (8.5-10.1); Chloride 105 mmol/L (98-107); Creatinine, Serum 0.77 mg/dL (0.55-1.02); EST Glomerular Filtration Rate 76 mL/min (>60); Est Glom Filt Rate - Afr Amer 93 mL/min (>60); Estimated Creatinine Clearance 49.33 ml/min; Glucose 247 mg/dL (74-106); Potassium 4.1 mmol/L (3.5-5.1); Sodium Level 136 mmol/L (136-145)
[2024-08-29 17:48] LABS: Bedside Glucose 228 mg/dL (74-106)
[2024-08-29] MEDS: Insulin Lispro 100 UNIT/ML INSULN.PEN SC ×2 (17:51→23:31)
[2024-08-29 18:00] VITALS: BP 159/72; PULSE 110; RESP 17; TEMP 36.8; O2SAT 96
[2024-08-29] MEDS: 0.9% Normal Saline (1000mL) 1,000 ML 1000 ML IV (19:00)
[2024-08-29] MEDS: 0.9% Normal Saline (1000mL) 1,000 ML 75 ML IV (20:02)
[2024-08-29] MEDS: Venlafaxine HCl 75 MG Tablet GT (21:09)
[2024-08-29 21:12] VITALS: BP 157/68; PULSE 106
[2024-08-29] MEDS: Metoprolol Tartrate 25 MG Tablet PO (21:12)
[2024-08-29] MEDS: Senna/Docusate Sodium 1 Tablet 2 TABLET GT (21:13)
[2024-08-29] MEDS: Gabapentin 400 MG Capsule GT (21:13)
[2024-08-29] MEDS: Acetaminophen 325 MG Tablet 650 MG GT (21:13)
[2024-08-29 23:55] LABS: Bedside Glucose 300 mg/dL (74-106)
[2024-08-30 02:23] VITALS: BMI 27.8
[2024-08-30 05:23] LABS: Absolute Lymphocyte Count 1.02 X10^3/uL (0.83-4.51); Basophil# 0.05 X10^3/uL; Basophil% 0.7 % (0-1); Eosinophil# 0.33 X10^3/uL; Eosinophils% 4.5 % (0-5); Hematocrit 32.3 % (37-47); Hemoglobin 10.6 g/dL (12.0-15.0); Lymphocyte # 1.02 X10^3/ul (0.83-4.51); Lymphocyte % 13.9 % (19-41); Mean Corp Hgb Conc 32.8 g/dL (32-36); Mean Corpuscular Hgb 31.4 pg (27.0-32.0); Mean Corpuscular Volume 95.6 fL (81-99); Mean Platelet Vol. 9.8 fl (6.2-12.0); Monocyte# 0.89 X10^3/uL; Monocyte% 12.2 % (0-10); NRBC Flagged by Analyzer 0 % (0-5); Neutrophil # 4.98 X10^3/uL (2.7-7.7); Platelet Count 258 K/mm3 (150-450); RBC Distribution Width CV 13.4 % (11.6-14.6); RBC Distribution Width SD 46.3 fl (35.1-43.9); Red Blood Count 3.38 M/mm3 (4.2-5.4); White Blood Count 7.3 K/mm3 (4.4-11.0)
[2024-08-30] MEDS: Insulin Lispro 100 UNIT/ML INSULN.PEN SC ×4 (06:42→23:30)
[2024-08-30] MEDS: Enoxaparin 40 MG/0.4 ML Syringe SC (06:45)
[2024-08-30 06:46] VITALS: BP 140/63; PULSE 83; RESP 16; TEMP 36.7; O2SAT 94
[2024-08-30] MEDS: Metoprolol Tartrate 25 MG Tablet PO ×3 (06:46→21:23)
[2024-08-30 07:17] LABS: Bedside Glucose 310 mg/dL (74-106)
--- NOTE | 2024-08-30 07:42 | NURSING ---
0723 Dr. Pastor updated on blood sugar of 310. 5 units of Humalog already given per sliding scale. Am labs reviewed. New orders received.
[2024-08-30] MEDS: Famotidine 20 MG Tablet 40 MG GT (09:27)
[2024-08-30] MEDS: Acetaminophen 325 MG Tablet 650 MG GT (09:27)
[2024-08-30] MEDS: Aspirin 81 MG TAB.CHEW GT (09:27)
[2024-08-30] MEDS: Senna/Docusate Sodium 1 Tablet 2 TABLET GT ×2 (09:27→21:24)
[2024-08-30] MEDS: Atorvastatin Calcium 40 MG Tablet GT (09:27)
[2024-08-30] MEDS: Cholecalciferol (VIT D3) 25 MCG TABLET (1,000 UNITS) GT (09:27)
[2024-08-30] MEDS: Venlafaxine HCl 75 MG Tablet GT ×2 (09:27→21:24)
[2024-08-30] MEDS: Clopidogrel Bisulfate 75 MG Tablet GT (09:27)
[2024-08-30] MEDS: Gabapentin 400 MG Capsule GT ×2 (09:28→21:53)
[2024-08-30] MEDS: Magnesium Hydroxide 30 ML UDC PO (09:28)
[2024-08-30 12:00] VITALS: O2SAT 97
[2024-08-30 12:50] LABS: Bedside Glucose 335 mg/dL (74-106)
[2024-08-30 13:41] VITALS: BP 126/60; PULSE 84
[2024-08-30 14:25] LABS: ALB/GLOB Ratio 0.8 RATIO (0.9-2.4); AST(SGOT) 12 U/L (15-37); Alanine Aminotransfer ALT/SGPT 18 U/L (13-56); Albumin, Serum 2.7 g/dL (3.2-5.0); Alkaline Phosphatase 77 U/L (45-117); Anion Gap 8 (5-15); BUN 21 mg/dL (7-18); BUN/Creat Ratio 31.3 RATIO (10-20); Calcium,Total 8.4 mg/dL (8.5-10.1); Chloride 110 mmol/L (98-107); Creatinine, Serum 0.67 mg/dL (0.55-1.02); EST Glomerular Filtration Rate 90 mL/min (>60); Est Glom Filt Rate - Afr Amer 108 mL/min (>60); Estimated Creatinine Clearance 49.33 ml/min; Globulin 3.5 g/dL (2.2-4.2); Glucose 291 mg/dL (74-106); Magnesium 2.1 mg/dL (1.6-2.6); Phosphorus 2.4 mg/dL (2.5-4.9); Potassium 3.6 mmol/L (3.5-5.1); Protein, Total 6.2 g/dL (6.4-8.2); Sodium Level 137 mmol/L (136-145); T4 Free Direct 1.08 ng/dL (0.76-1.46)
[2024-08-30 16:25] VITALS: BMI 27.8
[2024-08-30] MEDS: morphine (oral solution) 10MG/0.5ML Syringe 5 MG SL (16:43)
[2024-08-30] MEDS: MENTHOL 226.8 GM JAR 1 APPLIC TOPICAL (17:39)
[2024-08-30] MEDS: Insulin Glargine-YFGN 100 UNIT/ML Pen 6 UNIT SC (17:42)
[2024-08-30 18:00] VITALS: BP 143/77; PULSE 75; RESP 17; TEMP 36.3; O2SAT 95
[2024-08-30 18:03] LABS: Bedside Glucose 289 mg/dL (74-106)
[2024-08-30 21:20] VITALS: BP 151/54; PULSE 80
[2024-08-30 21:23] VITALS: PULSE 80
[2024-08-30] MEDS: Bisacodyl 10 MG Suppository RC (21:53)
[2024-08-30] MEDS: Jevity 1.5 1,000 ML 30 ML GT (22:07)
[2024-08-30 23:57] VITALS: BMI 27.8
[2024-08-30 23:58] LABS: Bedside Glucose 232 mg/dL (74-106)
[2024-08-31] MEDS: morphine (oral solution) 10MG/0.5ML Syringe 5 MG SL ×2 (02:52→21:12)
[2024-08-31 05:03] VITALS: BP 151/65; PULSE 81
[2024-08-31] MEDS: Insulin Glargine-YFGN 100 UNIT/ML Pen 6 UNIT SC (05:03)
[2024-08-31] MEDS: Metoprolol Tartrate 25 MG Tablet PO ×3 (05:03→21:12)
[2024-08-31] MEDS: Insulin Lispro 100 UNIT/ML INSULN.PEN SC ×5 (05:04→23:58)
[2024-08-31 06:00] VITALS: PULSE 84; RESP 16; TEMP 36.4; O2SAT 95
[2024-08-31 06:06] LABS: Bedside Glucose 284 mg/dL (74-106)
[2024-08-31] MEDS: Gabapentin 400 MG Capsule GT ×2 (08:18→21:12)
[2024-08-31] MEDS: Enoxaparin 40 MG/0.4 ML Syringe SC (08:18)
[2024-08-31] MEDS: Senna/Docusate Sodium 1 Tablet 2 TABLET GT ×2 (08:18→21:12)
[2024-08-31] MEDS: Clopidogrel Bisulfate 75 MG Tablet GT (08:18)
[2024-08-31] MEDS: Aspirin 81 MG TAB.CHEW GT (08:18)
[2024-08-31] MEDS: Cholecalciferol (VIT D3) 25 MCG TABLET (1,000 UNITS) GT (08:18)
[2024-08-31] MEDS: Famotidine 20 MG Tablet 40 MG GT (08:18)
[2024-08-31] MEDS: Venlafaxine HCl 75 MG Tablet GT ×2 (08:18→21:13)
[2024-08-31] MEDS: Atorvastatin Calcium 40 MG Tablet GT (08:18)
[2024-08-31 12:08] LABS: Bedside Glucose 335 mg/dL (74-106)
[2024-08-31 13:55] VITALS: BP 151/63; PULSE 77
[2024-08-31] MEDS: Insulin Glargine-YFGN 100 UNIT/ML Pen 10 UNIT SC (17:50)
[2024-08-31 18:00] VITALS: BP 143/63; PULSE 76; RESP 16; TEMP 36.7; O2SAT 95
[2024-08-31 18:14] LABS: Bedside Glucose 222 mg/dL (74-106)
[2024-08-31 20:10] VITALS: BP 154/61; PULSE 82
[2024-08-31 21:12] VITALS: PULSE 82
[2024-08-31] MEDS: Nystatin Powder 15gm Bottle 1 APPLIC TOPICAL (21:13)
[2024-08-31] MEDS: Acetaminophen 325 MG Tablet 650 MG GT (21:16)
[2024-08-31 23:16] VITALS: BMI 27.8
[2024-09-01] VITALS (7 sets, daily range): BP systolic 134–160; BP diastolic 59–86; PULSE 78–98; RESP 16; TEMP 36.6; O2SAT 93–94; BMI 27.8
[2024-09-01 00:58] LABS: Bedside Glucose 268 mg/dL (74-106)
[2024-09-01] MEDS: morphine (oral solution) 10MG/0.5ML Syringe 5 MG SL (02:05)
[2024-09-01] MEDS: Jevity 1.5 1,000 ML 30 ML GT (02:07)
[2024-09-01] MEDS: Metoprolol Tartrate 25 MG Tablet PO ×3 (06:03→21:13)
[2024-09-01] MEDS: Insulin Lispro 100 UNIT/ML INSULN.PEN SC ×9 (06:04→21:14)
[2024-09-01] MEDS: Insulin Glargine-YFGN 100 UNIT/ML Pen 10 UNIT SC ×2 (06:04→17:59)
[2024-09-01 06:54] LABS: Bedside Glucose 222 mg/dL (74-106)
--- NOTE | 2024-09-01 09:15 | REHABEVAL_ITS ---
Admission Information Primary Diagnosis:: Poststroke debility
--- NOTE | 2024-09-01 09:15 | PCM.RU.PYE ---
Admission Information Primary Diagnosis:: Poststroke debility Status Changes from Prescreening?: No changes Identified Actual Problem List:: Infection, UTI, Pain, ALteration in Cmfrt, Cognitve Impr/Memory Loss, Depression, Bladder Incontinence, Alteration in Sleep, Alteration in Nutrition, Mobility Impaired, Self Care Deficit, Diabetes, Hyperglycemia, Fluid Change-Dehydration and Alteration-Leisure Activ. Potential Problem List:: DVT, Bleeding, Infection, UTI, Aspiration, Falls, Skin Integrity and Depression Risk of Complications DVT: LMWH and OMKAR Hose Bleeding: Monitor Lab Values, Nursing to Teach Precautions for anti-coagulation therapy., Wound, if applicable, to be assessed every shift. and Stroke patients assessed for lethargy or change in status. Infection: Clinical Staff to Monitor for S/S of infection: and S/S of infection include fever, redness, warmth, etc. Urinary Tract Infection: Monitor for frequency, burning, discomfort, or incontinence. and Nursing will obtain urine sample for urinalysis and C&S when ordered. Aspiration: Clinical staff will monitor for coughing, drooling, congestion., Speech will evaluate swallowing and dsyphasia. and Nursing will monitor patient swallowing during meals. Falls: Patient will be evaluated for Fall Precautions and Patient will be placed on Fall Precautions as indicated per protocol. Skin Breakdown: Nursing will assess skin daily using assessment tool. and Nursing will place on Skin Breakdown Precautions as indicated. Pain: Clinical staff will assess patient's pain level per protocol., Medications will be given, if needed, and the pain level reassessed. and Other methods: Massage, distraction, decrease stimulus, etc. used PRN. Plan of Care Patient requires physician specializing in physical medicine and rehab oversight to provide close medical supervision of rehab issues including: Pain Management, Sleep Problems, Bowel and Bladder, Medical and co-morbidity Management, DVT prophylaxis, Rehabilitation Leadership and Coordination of treatment team Patient needs Physical Therapy: For a minimum of 1 hour and At least 5 out of 7 days Patient needs Physical Therapy to improve:: Mobility, Strengthening, Transfers, Stretching, ROM, Endurance, Stairs, Gait and Balance Patient needs Occupational Therapy: For a minimum of 1 hour and At least 5 out of 7 days Patient needs Occupational Therapy to improve ADL's incl.: Eating, Grooming, Bathing, Dressing, Toileting, Toilet transfers, Community Reintegration, Higher functioning activities, Household tasks, Adaptive Equipment, Splinting and Other activities as determined Patient requires speech therapy: For a minimum of 1 hour and At least 5 out of 7 days Patient requires speech therapy for: Swallowing, Cognition, Language Skills and Compensatory Strategies Patient requires 24/ Rehabilitation Nursing for: Pain Issues, Identifying and preventing risk factors, Monitoring and reporting current medical conditions, Assisting with ambulation, transfer, and all ADL's, Teaching patients about disease process and medications, Family teaching, Providing safe environment, Bowel and Bladder Issues, Skin integrity and Medication Management Patient needs Home Administrator/ Case Management for: Discharge Planning, Arranging Home Equipment or Services and Family Interventions Patient needs Dietary and Nutrition Services for: Adequate Nutrition, Nutritional Supplements and Nutritional Education Goals Goals Patient will remain: free from falls Patient will perform eating at: MOD I level of assist. Patient will perform bed mobility at: MOD I level of assist. Patient will complete transfers from bed to chair at: MOD I level of assist. Patient will ambulate: 100 feet (With a rollator at standby assist) Patient will complete upper body dressing at: - (Supervision) Patient will complete lower body dressing at: - (Supervision using adaptive equipment as needed.) Patient will complete toilet transfer at: - (Supervision) Patient will complete toileting at: - (Supervision) Patient will perform bathing at: - (Supervision) Patient will perform Tub/Shower transfer at: - (Supervision) Patient will complete grooming at: - (Set up) Patient will achieve: - (2 steps with a handrail at contact-guard assist) Patient will have pain level of: of 3 or less Patient's skin will: remain intact Patient will receive: adequate nutrition. Discharge Planning Pt Prognosis for Sig. Practical Improv. w/in Reasonable Time: Good Estimated Length of stay (days): 28 Anticipated D/C Destination: Home with Home Health Was Preadmission Assessment Accurate?: Yes
--- NOTE | 2024-09-01 09:27 | PCM.PROGNOTE ---
Subjective Subjective Pt was seen on TEAM rounds today. Afebrile VSS -blood pressure over the past 24 hours has ranged from 143/86 160/65. Heart rate increased from 83-98 when going from laying to standing this morning. Blood pressure did not change significantly but this is positive orthostasis. Maintaining appropriate oxygen saturation on RA Oral intake - FOOD n.p.o. FLUIDS n.p.o. The blood sugar record was reviewed. Blood sugars are coming under better control. Blood sugars are now down into the 200s rather than the 300s. 6 AM blood sugar today was 222. Had 3 BMs yesterday. Discussed with nursing - no problems that need addressed Reviewed the THERAPY notes Medication list reviewed. UA done on 08/30/2024 was reviewed. She had pyuria with 5-10 white blood cells but rare bacteria. She also had 2+ yeast. Specific gravity was increased to 1.025. Ketones were positive but the serum acetone was only small positive. She is complaining of some lightheadedness today, especially when she is standing. She also tells me that she is having a difficult time sleeping at night. She denies cephalgia, chest pain, shortness of breath, palpitations, nausea, abdominal pain, dysuria and calf pain. Objective Data Objective Data Vital Signs: Vital Signs Temp Pulse Resp BP Pulse Ox O2 Del Method 97.8 F 98 16 143/86 H 93 Room Air 09/01/24 06:00 09/01/24 09:12 09/01/24 06:00 09/01/24 09:12 09/01/24 06:58 09/01/24 06:58 Oxygen Delivery Method Room Air Weight: 152 lb 1.903 oz Body Mass Index (BMI) 27.8 Intake & Output: Intake and Output for Last 24 Hours 08/30/24 08/31/24 09/01/24 23:59 23:59 23:59 Intake Total 2665 / 2665 370 / 370 840 / 840 Balance 2665 / 2665 370 / 370 840 / 840 Lab / Micro Data 08/30/24 04:40 08/30/24 04:40 Labs: Laboratory Results - last 24 hr 08/31/24 11:45: POC Glucose 335 H 08/31/24 17:48: POC Glucose 222 H 08/31/24 23:57: POC Glucose 268 H 09/01/24 06:03: POC Glucose 222 H Micro: Microbiology 08/29/24 15:53 Urine Catheter - Catheter Urine Culture - Preliminary Culture exhibits no growth. Physical Exam Const alert and oriented x3 General Appearance: cooperative HEENT HEENT Narrative: MM are very dry and the tongue has an adherent white coating that appears to be consistent with thrush. Resp normal respiratory effort, normal air movement and clear to auscultation bilaterally Resp Narrative: Not tachypneic. Effort and Inspection: able to speak in complete sentences Cardio regular rate and regular rhythm Cardio Narrative: She has a systolic ejection murmur, 2/6, heard best at the second right intercostal space with radiation lower sternal border and apex. This was not present in July and may be secondary to intravascular volume depletion with increased turbulence. GI normal to inspection, nondistended, normoactive bowel sounds, soft to palpation, non-tender, non-distended and no bruits Extremity no calf tenderness and no pedal edema Skin Skin Narrative: no rashes. the skin over the left distal LE is not purple or cool to the touch today. The mild mottling of the plantar surface of the toes is resolved. DP is 2+ BL. Assessment & Plan Assessment/Plan (1) Debility: (2) History of stroke: (3) Dysphagia: QUALIFIERS: Dysphagia type: unspecified Qualified Code(s): R13.10 - Dysphagia, unspecified (4) Right hemiparesis: (5) Facial droop: (6) Paresthesia of right upper and lower extremity: (7) 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 disease: (8) Diabetes mellitus with hyperglycemia, with long-term current use of insulin: QUALIFIERS: Diabetes mellitus type: type 2 Qualified Code(s): E11.65 - Type 2 diabetes mellitus with hyperglycemia; Z79.4 - [facility] (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 (9) Essential (primary) hypertension: (10) Hyperlipidemia: QUALIFIERS: Hyperlipidemia type: mixed hyperlipidemia Qualified Code(s): E78.2 - Mixed hyperlipidemia (11) Mild cognitive impairment: PLAN: Chronic (12) Overweight (BMI 25.0-29.9): (13) Anxiety and depression: (14) Polyneuropathy: (15) Grade I diastolic dysfunction: (16) Cystitis: (17) Hypophosphatemia: (18) Metabolic acidosis: (19) Orthostatic hypotension: (20) Dehydration: PLAN: Plan 1. Continue therapy 2. Bolus with 1 L of normal saline over 2 hours then run at 75 for an additional 1 L. 3. Changed to bolus tube feeds today. 4. Lispro 4 units prior to each tube feed. Continue glargine every 12 hours. Continue sliding scale insulin. 5. BMP and H&H in a.m. 6. Increase the gabapentin to 400 mg 3 times daily 7. Neutra-Phos 1 packet twice daily for 6 doses. 8. Obtain all echocardiogram report from Dr. Yun - if she has not had a bubble study in the past this should be done........consider a CORDELL since she has had multiple strokes in different territories recently. 9. DC Effexor 75 mg BID......this can cause insomnia. Start Sertraline 50 mg daily on 09/03/24. 10. she has been on Lorazepam in the past at and this has been discontinued. would like to avoid benzo's if at all possible. Will start Buspar 5 mg BID. Charges/Coding Visit Charges Inpatient E&M: 77879 Subs Hosp L1
[2024-09-01] MEDS: Aspirin 81 MG TAB.CHEW GT (09:45)
[2024-09-01] MEDS: Atorvastatin Calcium 40 MG Tablet GT (09:45)
[2024-09-01] MEDS: Gabapentin 400 MG Capsule GT ×2 (09:45→18:01)
[2024-09-01] MEDS: Venlafaxine HCl 75 MG Tablet GT (09:45)
[2024-09-01] MEDS: Senna/Docusate Sodium 1 Tablet 2 TABLET GT (09:45)
[2024-09-01] MEDS: Cholecalciferol (VIT D3) 25 MCG TABLET (1,000 UNITS) GT (09:45)
[2024-09-01] MEDS: Enoxaparin 40 MG/0.4 ML Syringe SC (09:46)
[2024-09-01] MEDS: Famotidine 20 MG Tablet 40 MG GT (09:46)
[2024-09-01] MEDS: Clopidogrel Bisulfate 75 MG Tablet GT (09:46)
[2024-09-01] MEDS: Nystatin Powder 15gm Bottle 1 APPLIC TOPICAL ×2 (10:02→21:54)
[2024-09-01 10:22] LABS: Bedside Glucose 333 mg/dL (74-106)
[2024-09-01] MEDS: Na Biphos/Potassium Phosphate PACKET 1 PACKET GT ×2 (12:16→21:13)
[2024-09-01] MEDS: 0.9% Saline Lock 10 ML Syringe IV (13:33)
[2024-09-01] MEDS: 0.9% Normal Saline (1000mL) 1,000 ML 75 ML IV (13:41)
[2024-09-01] MEDS: Jevity 1.5. 1,000 ML Bottle 240 ML GT ×3 (14:39→21:18)
[2024-09-01 15:08] LABS: Base Excess -3 mmol/L (-2 to +2); Bicarbonate 21.7 mmol/L (22-26); Blood Gas Specimen Type ART; Mode Not entered; O2 Delivery Device Not entered; PO2 69 mmHG (75-100); SITE L Brach; SO2 94 % (95-99); Total Carbon Dioxide 23 mmol/L; pCO2 35.5 mmHg (35-45); pH 7.39 (7.35-7.45)
[2024-09-01 15:20] LABS: Bedside Glucose 240 mg/dL (74-106)
[2024-09-01 18:31] LABS: Bedside Glucose 349 mg/dL (74-106)
[2024-09-01] MEDS: busPIRone 5 MG Tablet PO (21:13)
[2024-09-01] MEDS: Docusate Sodium 100 MG/10 ML UDC GT (21:13)
[2024-09-01] MEDS: Acetaminophen 325 MG Tablet 650 MG GT (21:13)
[2024-09-01 22:39] LABS: Bedside Glucose 301 mg/dL (74-106)
[2024-09-02] VITALS (7 sets, daily range): BP systolic 139–193; BP diastolic 72–90; PULSE 75–91; RESP 16–18; TEMP 36.6; O2SAT 97–100; BMI 28.0
[2024-09-02] MEDS: 0.9% Normal Saline (1000mL) 1,000 ML 75 ML IV (03:00)
[2024-09-02] MEDS: Enoxaparin 40 MG/0.4 ML Syringe SC (05:54)
[2024-09-02] MEDS: Insulin Glargine-YFGN 100 UNIT/ML Pen 10 UNIT SC (05:55)
[2024-09-02] MEDS: Insulin Lispro 100 UNIT/ML INSULN.PEN SC ×7 (05:56→22:05)
[2024-09-02] MEDS: Metoprolol Tartrate 25 MG Tablet PO ×3 (05:57→21:55)
[2024-09-02] MEDS: Jevity 1.5. 1,000 ML Bottle 240 ML GT ×5 (05:58→21:54)
[2024-09-02 07:11] LABS: Bedside Glucose 287 mg/dL (74-106)
[2024-09-02 07:11] LABS: Hematocrit 36.7 % (37-47); Hemoglobin 12.7 g/dL (12.0-15.0)
[2024-09-02 07:42] LABS: Anion Gap 8 (5-15); BUN 11 mg/dL (7-18); BUN/Creat Ratio 14.7 RATIO (10-20); Calcium,Total 9.3 mg/dL (8.5-10.1); Chloride 105 mmol/L (98-107); Creatinine, Serum 0.75 mg/dL (0.55-1.02); EST Glomerular Filtration Rate 79 mL/min (>60); Est Glom Filt Rate - Afr Amer 96 mL/min (>60); Estimated Creatinine Clearance 49.35 ml/min; Glucose 380 mg/dL (74-106); Potassium 3.9 mmol/L (3.5-5.1); Sodium Level 137 mmol/L (136-145)
--- NOTE | 2024-09-02 07:58 | PCM.PROGNOTE ---
Subjective Subjective Afebrile VSS -blood pressure this morning was 190/72. Systolic ranged from 1 43-1 90 over the past 24 hours. Diastolic blood pressures are within goal almost always. Heart rate ranged from 79-98. Maintaining appropriate oxygen saturation on RA Oral intake - FOOD n.p.o. FLUIDS n.p.o. The blood sugar record was reviewed. BS's not adequately controlled yet. converted to bolus feedings yesterday. No hypoglycemia. Known to have insulin resistance. Discussed with nursing - slept well after 2 AM last night per nursing. Patient tells me that she did not sleep. Reviewed the THERAPY notes Medication list reviewed. Gabapentin was increased to 400 mg 3 times daily yesterday. She had 1 dose of Roxanol yesterday and that was early in the morning. All lab from today was personally reviewed. The hemoglobin today is 12.7, up from 10.6 on 08/30/2024. Sodium is stable at 137 and the potassium is 3.9. Serum bicarb is up to 24 today with better hydration. BUN is down to 11 from 23 on 08/29/2024. Creatinine is stable at 0.75. Calcium is within normal limits. Postvoid residuals have all been less than 100 Very anxious. Has been on benzo's in the past for anxiety and insomnia. Recently discontinued due to cognitive dysfunction. BP increases severely with increase in anxiety. She was given 0.5 mg of Ativan PO and BP came down to 139/79 and she went to sleep. The radicular pain in her legs is better with the increase in the gabapentin to 400 mg 3 times daily. She was started on BuSpar yesterday for anxiety however she has a long history of benzodiazepine use and this is probably not going to be effective. She was also started on sertraline which will help with anxiety but will take several days to a couple weeks to make a significant difference. Objective Data Objective Data Vital Signs: Vital Signs Temp Pulse Resp BP Pulse Ox O2 Del Method 97.9 F 90 18 190/72 H 97 Room Air 09/02/24 05:28 09/02/24 05:57 09/02/24 05:28 09/02/24 05:57 09/02/24 05:28 09/02/24 05:28 Oxygen Delivery Method Room Air Weight: 152 lb 1.903 oz Body Mass Index (BMI) 27.8 Intake & Output: Intake and Output for Last 24 Hours 08/31/24 09/01/24 09/02/24 23:59 23:59 23:59 Intake Total 370 / 370 2891 / 2891 1238.75 / 1238.75 Balance 370 / 370 2891 / 2891 1238.75 / 1238.75 Lab / Micro Data 09/02/24 06:55 09/02/24 06:55 Labs: Laboratory Results - last 24 hr 09/01/24 09:49: POC Glucose 333 H 09/01/24 14:35: POC Glucose 240 H 09/01/24 17:58: POC Glucose 349 H 09/01/24 21:12: POC Glucose 301 H 09/02/24 05:41: POC Glucose 287 H 09/02/24 06:55: Hgb 12.7, Hct 36.7 L, Sodium 137, Potassium 3.9, Chloride 105, Carbon Dioxide 24.0, Anion Gap 8, BUN 11, Creatinine 0.75, Estim Creat Clear Calc 49.35, Est GFR (MDRD) Af Amer 96, Est GFR (MDRD) Non-Af 79, BUN/Creatinine Ratio 14.7, Glucose 380 H, Calcium 9.3 Micro: Microbiology 08/29/24 15:53 Urine Catheter - Catheter Urine Culture - Preliminary Yeast Like Organism ABG Data ABG results: ABG 09/01/24 15:04 Specimen Type ART Sample Site L Brach pH 7.39 Bicarbonate Actual 21.7 L Total CO2 23 Base Excess -3 L O2 Saturation 94 L O2 % 21.0 ABG pCO2 35.5 ABG pO2 69 L O2 Delivery Device Not entered Vent Mode Not entered Physical Exam Const alert and oriented x3 Constitutional Narrative: knew me immediately from when I cared for her on TCU. Oriented to person, place, time, month, year. speech is halting. General Appearance: cooperative HEENT HEENT Narrative: MM are very dry and the tongue has an adherent white coating that appears to be consistent with thrush. Eyes PERRL, EOMs intact bilaterally, conjunctivae normal and no scleral icterus Eyes Narrative: No discharge from the eyes. Has intraocular lens implants. General Eye: normal appearance of both eyes Neck no JVD, No nodes and no carotid bruits General: trachea midline Chest Chest: symmetrical chest wall rise Resp normal respiratory effort, normal air movement and clear to auscultation bilaterally Resp Narrative: Not tachypneic. Effort and Inspection: able to speak in complete sentences Cardio regular rate and regular rhythm Cardio Narrative: She has a systolic ejection murmur, 2/6, heard best at the second right intercostal space with radiation lower sternal border and apex. This was not present in July and may be secondary to intravascular volume depletion with increased turbulence. GI normal to inspection, nondistended, normoactive bowel sounds, soft to palpation, non-tender, non-distended and no bruits GI Narrative: No guarding with palpation but, she has tenderness with palpation of the upper abdomen, joaquin the RUQ around the PEG side. The PEG site is nor erythematous and has no purulent DC. no CVA tenderness Narrative: Had a pure wick catheter on the acute side of the hospital Extremity no calf tenderness and no pedal edema Extremity Narrative: DP pulses are 2+ BL. Radial pulses are 2+ BL. Skin Skin Narrative: no rashes. the skin over the left distal LE is not purple or cool to the touch today. The mild mottling of the plantar surface of the toes is resolved. DP is 2+ BL. Neuro oriented x3 Neuro Narrative: R facial droop. No sensory loss. Likely no ataxia.....I think the abnormality with testing for ataxia of the RUE is due to weakness and ant true ataxia. No extinction, no aphasia. No visual loss. Dysarthria is present. 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 Psych cooperative, denies hallucinations and denies suicidal ideation Psych Narrative: Does not seem anxious. Appearance: appropriate and well kempt Attitude: calm Activity / Motor Behavior: appropriate eye contact Assessment & Plan Assessment/Plan (1) Debility: (2) History of stroke: (3) Dysphagia: QUALIFIERS: Dysphagia type: unspecified Qualified Code(s): R13.10 - Dysphagia, unspecified (4) Right hemiparesis: (5) Facial droop: (6) Paresthesia of right upper and lower extremity: (7) 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 disease: (8) Diabetes mellitus with hyperglycemia, with long-term current use of insulin: QUALIFIERS: Diabetes mellitus type: type 2 Qualified Code(s): E11.65 - Type 2 diabetes mellitus with hyperglycemia; Z79.4 - care home (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 (9) Essential (primary) hypertension: (10) Hyperlipidemia: QUALIFIERS: Hyperlipidemia type: mixed hyperlipidemia Qualified Code(s): E78.2 - Mixed hyperlipidemia (11) Mild cognitive impairment: PLAN: Chronic (12) Anxiety and depression: (13) Polyneuropathy: (14) Hypophosphatemia: PLAN: Plan 1. Continue therapy 2. Adjustments were made to the insulin regimen. she has a lot of insulin resistance and BS's are difficult to control, 3. Discontinue BuSpar and continue sertraline 50 mg daily. 4. Try Xanax 0.125 mg Q8H PRN anxiety. Klonopin 0.25 mg at HS Charges/Coding Visit Charges Inpatient E&M: 58121 Subs Hosp L1
[2024-09-02] MEDS: busPIRone 5 MG Tablet PO (09:48)
[2024-09-02] MEDS: Gabapentin 400 MG Capsule GT ×3 (09:48→18:01)
[2024-09-02] MEDS: Famotidine 20 MG Tablet 40 MG GT (09:49)
[2024-09-02] MEDS: Na Biphos/Potassium Phosphate PACKET 1 PACKET GT ×2 (09:49→21:57)
[2024-09-02] MEDS: Docusate Sodium 100 MG/10 ML UDC GT ×2 (09:49→21:56)
[2024-09-02] MEDS: Clopidogrel Bisulfate 75 MG Tablet GT (09:49)
[2024-09-02] MEDS: Aspirin 81 MG TAB.CHEW GT (09:49)
[2024-09-02] MEDS: Cholecalciferol (VIT D3) 25 MCG TABLET (1,000 UNITS) GT (09:49)
[2024-09-02] MEDS: Nystatin Powder 15gm Bottle 1 APPLIC TOPICAL ×2 (09:49→21:56)
[2024-09-02] MEDS: Atorvastatin Calcium 40 MG Tablet GT (09:49)
[2024-09-02] MEDS: Insulin Glargine-YFGN 100 UNIT/ML Pen 6 UNIT SC (09:52)
[2024-09-02] MEDS: Insulin Lispro 100 UNIT/ML INSULN.PEN 10 UNIT SC ×2 (09:54→13:50)
[2024-09-02 10:27] LABS: Bedside Glucose 368 mg/dL (74-106)
[2024-09-02] MEDS: LORazepam 0.5 MG Tablet PO (10:57)
[2024-09-02 14:19] LABS: Bedside Glucose 338 mg/dL (74-106)
[2024-09-02] MEDS: Insulin Glargine-YFGN 100 UNIT/ML Pen 16 UNIT SC (17:59)
[2024-09-02] MEDS: Insulin Lispro 100 UNIT/ML INSULN.PEN 16 UNIT SC (18:01)
[2024-09-02 18:41] LABS: Bedside Glucose 320 mg/dL (74-106)
[2024-09-02] MEDS: Acetaminophen 325 MG Tablet 650 MG GT (21:54)
[2024-09-02 23:31] LABS: Bedside Glucose 261 mg/dL (74-106)
[2024-09-03 00:03] VITALS: BMI 28.0
[2024-09-03 05:18] VITALS: BP 158/72; PULSE 82; RESP 18; TEMP 36.6; O2SAT 95
[2024-09-03 05:40] VITALS: PULSE 85
[2024-09-03] MEDS: Enoxaparin 40 MG/0.4 ML Syringe SC (05:40)
[2024-09-03] MEDS: Insulin Lispro 100 UNIT/ML INSULN.PEN 16 UNIT SC ×2 (05:40→09:50)
[2024-09-03] MEDS: Metoprolol Tartrate 25 MG Tablet PO ×3 (05:40→21:03)
[2024-09-03] MEDS: Insulin Lispro 100 UNIT/ML INSULN.PEN SC ×5 (05:41→21:04)
[2024-09-03] MEDS: Insulin Glargine-YFGN 100 UNIT/ML Pen 16 UNIT SC (05:42)
[2024-09-03] MEDS: Jevity 1.5. 1,000 ML Bottle 240 ML GT ×5 (05:43→21:05)
[2024-09-03] MEDS: Acetaminophen 325 MG Tablet 650 MG GT ×2 (05:58→21:21)
[2024-09-03 06:00] VITALS: BMI 28.0
[2024-09-03 06:23] LABS: Bedside Glucose 263 mg/dL (74-106)
[2024-09-03] MEDS: Clopidogrel Bisulfate 75 MG Tablet GT (09:38)
[2024-09-03] MEDS: Aspirin 81 MG TAB.CHEW GT (09:38)
[2024-09-03] MEDS: Na Biphos/Potassium Phosphate PACKET 1 PACKET GT ×2 (09:38→21:03)
[2024-09-03] MEDS: Sertraline 50 MG Tablet PO (09:38)
[2024-09-03] MEDS: Gabapentin 400 MG Capsule GT ×3 (09:38→17:59)
[2024-09-03] MEDS: Atorvastatin Calcium 40 MG Tablet GT (09:38)
[2024-09-03] MEDS: Nystatin Powder 15gm Bottle 1 APPLIC TOPICAL ×2 (09:39→21:06)
[2024-09-03] MEDS: Famotidine 20 MG Tablet 40 MG GT (09:39)
[2024-09-03] MEDS: Cholecalciferol (VIT D3) 25 MCG TABLET (1,000 UNITS) GT (09:39)
[2024-09-03 10:23] LABS: Bedside Glucose 234 mg/dL (74-106)
[2024-09-03] MEDS: Insulin Lispro 100 UNIT/ML INSULN.PEN 20 UNIT SC ×2 (14:19→17:58)
[2024-09-03 14:25] VITALS: BP 159/72; PULSE 84
[2024-09-03 14:48] LABS: Bedside Glucose 251 mg/dL (74-106)
[2024-09-03 17:00] VITALS: BMI 28.0
[2024-09-03] MEDS: Insulin Glargine-YFGN 100 UNIT/ML Pen 20 UNIT SC (17:57)
[2024-09-03 18:00] VITALS: BP 154/62; PULSE 83; RESP 16; TEMP 36.2; O2SAT 95
[2024-09-03 18:28] LABS: Bedside Glucose 283 mg/dL (74-106)
[2024-09-03 20:45] VITALS: PULSE 92; RESP 16; O2SAT 95; BMI 28.0
[2024-09-03 21:03] VITALS: BP 180/83; PULSE 92
[2024-09-03] MEDS: clonazePAM 0.5 MG Tablet PO (21:03)
[2024-09-03] MEDS: Insulin Lispro 100 UNIT/ML INSULN.PEN 8 UNIT SC (21:04)
[2024-09-03 23:43] LABS: Bedside Glucose 277 mg/dL (74-106)
[2024-09-04] VITALS (8 sets, daily range): BP systolic 139–183; BP diastolic 64–77; PULSE 81–89; RESP 16; TEMP 36.4–36.5; O2SAT 95–98; BMI 28.2
[2024-09-04] MEDS: Enoxaparin 40 MG/0.4 ML Syringe SC (05:20)
[2024-09-04] MEDS: Insulin Glargine-YFGN 100 UNIT/ML Pen 20 UNIT SC (05:21)
[2024-09-04] MEDS: Insulin Lispro 100 UNIT/ML INSULN.PEN SC ×5 (05:22→20:35)
[2024-09-04] MEDS: Insulin Lispro 100 UNIT/ML INSULN.PEN 20 UNIT SC ×2 (05:23→09:38)
[2024-09-04] MEDS: morphine (oral solution) 10MG/0.5ML Syringe 5 MG SL (05:38)
[2024-09-04] MEDS: Metoprolol Tartrate 25 MG Tablet PO ×3 (05:39→22:06)
[2024-09-04] MEDS: Jevity 1.5. 1,000 ML Bottle 240 ML GT ×5 (06:04→20:39)
[2024-09-04 07:30] LABS: Bedside Glucose 312 mg/dL (74-106)
[2024-09-04] MEDS: Docusate Sodium 100 MG/10 ML UDC GT ×2 (09:34→20:28)
[2024-09-04] MEDS: Gabapentin 400 MG Capsule GT ×3 (09:35→17:47)
[2024-09-04] MEDS: Cholecalciferol (VIT D3) 25 MCG TABLET (1,000 UNITS) GT (09:35)
[2024-09-04] MEDS: Sertraline 50 MG Tablet PO (09:35)
[2024-09-04] MEDS: Clopidogrel Bisulfate 75 MG Tablet GT (09:35)
[2024-09-04] MEDS: Aspirin 81 MG TAB.CHEW GT (09:35)
[2024-09-04] MEDS: Famotidine 20 MG Tablet 40 MG GT (09:35)
[2024-09-04] MEDS: Atorvastatin Calcium 40 MG Tablet GT (09:35)
[2024-09-04] MEDS: Nystatin Powder 15gm Bottle 1 APPLIC TOPICAL ×2 (09:53→20:29)
[2024-09-04 10:25] LABS: Bedside Glucose 344 mg/dL (74-106)
--- NOTE | 2024-09-04 11:46 | PCM.PROGNOTE ---
Subjective Subjective Danica was seen on team rounds today. Some family was present in the room and others were on speaker phone. All questions were answered to their satisfaction. Afebrile VSS -blood pressure this a.m. was 183/71 and a repeat at noon was also 183/71. After 0.125 mg Xanax the blood pressure was 139/72. Maintaining appropriate oxygen saturation on RA Oral intake - FOOD n.p.o. FLUIDS n.p.o. she is afraid to try food with ST because she had vomiting with swallowing on the acute side of the hospital. Discussed with nursing - no problems that need addressed Reviewed the THERAPY notes Medication list reviewed. Danica denies lightheadedness, cephalgia, chest pain, shortness of breath, cough, nausea/vomiting/abdominal pain, dysuria and calf tenderness. Objective Data Objective Data Vital Signs: Vital Signs Temp Pulse Resp BP Pulse Ox O2 Del Method 97.7 F L 89 16 183/71 H 95 Room Air 09/04/24 04:49 09/04/24 05:39 09/04/24 04:49 09/04/24 05:39 09/04/24 04:49 09/04/24 04:49 Oxygen Delivery Method Room Air Weight: 153 lb 3.54 oz Body Mass Index (BMI) 28.2 Intake & Output: Intake and Output for Last 24 Hours 09/02/24 09/03/24 09/04/24 23:59 23:59 23:59 Intake Total 3078.75 / 3078.75 1400 / 1400 870 / 870 Balance 3078.75 / 3078.75 1400 / 1400 870 / 870 Lab / Micro Data 09/02/24 06:55 09/02/24 06:55 Labs: Laboratory Results - last 24 hr 09/03/24 14:19: POC Glucose 251 H 09/03/24 17:56: POC Glucose 283 H 09/03/24 20:57: POC Glucose 277 H 09/04/24 05:18: POC Glucose 312 H 09/04/24 09:37: POC Glucose 344 H Micro: Microbiology 08/29/24 15:53 Urine Catheter - Catheter Urine Culture - Final Yeast, not Shanna albicans Physical Exam Const alert and oriented x3 General Appearance: cooperative, well kempt and well developed HEENT Mouth: dry mucous membranes Neck nodes and no carotid bruits Resp normal respiratory effort, normal air movement, no use of accessory muscles and clear to auscultation bilaterally Resp Narrative: Not tachypneic. Effort and Inspection: able to speak in complete sentences Cardio regular rate, regular rhythm and no gallops Cardio Narrative: She has a systolic ejection murmur, 2/6, heard best at the second right intercostal space with radiation lower sternal border and apex. This was not present in July and may be secondary to intravascular volume depletion with increased turbulence. GI normal to inspection, nondistended, normoactive bowel sounds, soft to palpation, non-tender, non-distended and no bruits GI Narrative: No guarding with palpation but, she has tenderness with palpation of the upper abdomen, joaquin the RUQ around the PEG side. The PEG site is nor erythematous and has no purulent DC. Narrative: Had a pure wick catheter on the acute side of the hospital Extremity no calf tenderness and no pedal edema Extremity Narrative: DP pulses are 2+ BL. Radial pulses are 2+ BL. Both feet are warm to the touch. The splotchy purple discoloration of the left foot has resolved. General Extremity: Negative for cyanosis Skin Skin Narrative: no rashes. The mild mottling of the plantar surface of the toes is resolved. DP is 2+ BL. Neuro Neuro Narrative: Facial droop is improving, she stood in the parallel bars today. She is cooperative with therapy. Psych cooperative Psych Narrative: severe anxiety with panic attacks. Appearance: appropriate and well kempt Activity / Motor Behavior: appropriate eye contact Mood & Affect: anxious Assessment & Plan Assessment/Plan (1) Debility: (2) History of stroke: (3) Dysphagia: QUALIFIERS: Dysphagia type: unspecified Qualified Code(s): R13.10 - Dysphagia, unspecified (4) Right hemiparesis: (5) Facial droop: (6) Paresthesia of right upper and lower extremity: (7) 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 disease: (8) Diabetes mellitus with hyperglycemia, with long-term current use of insulin: QUALIFIERS: Diabetes mellitus type: type 2 Qualified Code(s): E11.65 - Type 2 diabetes mellitus with hyperglycemia; Z79.4 - terminal computer 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 Continue therapy 2. Change the Klonopin order to 0.5 mg at 0800 and 2000 3. Continue Xanax as needed and give 1 dose now for persistently elevated systolic pressures that only come down after her anxiety is controlled. 4. Increase the glargine to 28 units twice daily. Increase the lispro with feedings during the day to 28 units and increase the lispro with the at bedtime feeding to 14 units. May need to get Dr. Munguia involved if we can not get the BS's under adequate control. 5. I think it is imperative we get the anxiety under control if we are going to be able to get the BP at goal. 6. the burning pain in the legs is better with the increase in the Gabapentin to 400 mg TID. 7. Change Metoprolol to XL 50 mg BID Charges/Coding Visit Charges Inpatient E&M: 86086 Subs Hosp L2
[2024-09-04] MEDS: ALPRAZolam 0.25 MG Tablet 0.125 MG PO (12:07)
--- NOTE | 2024-09-04 12:48 | CASEMGMT ---
Social Work Patient, and one dtr at bedside and two dtrs via conference call for Team meeting. Discussed patient's progress in PT/OT/ST/SN. Educated to Medicare approval of 23 days with DC 09/21. Pt is a new peg and is total assist with ADLs and ambulation. LABORER PLUMBING suggesting pt trial purees. Dr reported pt is highly anxious, which is causing increased blood sugars and blood pressures. Dr started pt on anti-anxiety and anti-depressant medications and PRN med to assist. SW discussed DC plans and explained difference in Medicare coverage between SNF and IRU. Family expressed understanding and noted pt needs to return to independent level to return home as cannot assist. Family inquired about returning to TCU. SW confirmed that would be an option and calculated pt used 18/100 [facility] days. Will ReTeam weekly. [facility] will continue to follow. Harmony Bhakta HALL DIRECTOR HOUSE CLEANER SUPERVISOR
[2024-09-04] MEDS: Insulin Lispro 100 UNIT/ML INSULN.PEN 28 UNIT SC ×2 (14:36→17:45)
[2024-09-04 15:03] LABS: Bedside Glucose 302 mg/dL (74-106)
--- NOTE | 2024-09-04 16:04 | CHAPLAIN ---
Type of Pastoral Visit ___ Initial Visit _x__ Follow-up Visit ___ On-call Visit ___ General Patient Visit ___ Spiritual Assessment ___ Family Conference ___ Bereavement ___ Rapid Response ___ Code Blue ___ Other (describe below) Pastoral Care Referral From _x__ Patient _x__ Family ___ Nurse ___ Physician ___ Registered Occupational Therapist ___ [id number] Operator ___ Other (describe below) Sacrament/Intervention _x__ Active listening ___ Anointing ___ Episcopalian ___ Bereavement ___ Communion ___ Sharifa exploration ___ ___ Life review _x__ Prayer ___ Reconciliation ___ Sacrament of Sick _x__ Supportive presence ___ Wedding ___ Other (describe below) Pastoral Comments patient has been seen in [facility], PCU, and TCU prior to this visit in the Rehab; pt is welcoming; spouse is with her; pt is happy to share how much she did in her therapy session today; pt acknowledges a significant way to go yet for a full recovery and expresses her thankfulness to be in the Rehab; spouse is talkative and speaks of her coming home; both welcome presence and prayer for support
[2024-09-04] MEDS: Insulin Glargine-YFGN 100 UNIT/ML Pen 28 UNIT SC (17:46)
[2024-09-04] MEDS: 0.9% Saline Lock 10 ML Syringe IV (18:01)
[2024-09-04] MEDS: 0.9% Normal Saline (1000mL) 1,000 ML 500 ML IV (18:12)
[2024-09-04 18:17] LABS: Bedside Glucose 366 mg/dL (74-106)
[2024-09-04] MEDS: Acetaminophen 325 MG Tablet 650 MG GT (20:28)
[2024-09-04] MEDS: clonazePAM 0.5 MG Tablet PO (20:28)
[2024-09-04] MEDS: cloNIDine HCl 0.1 MG Patch TD (20:30)
[2024-09-04] MEDS: Insulin Lispro 100 UNIT/ML INSULN.PEN 14 UNIT SC (20:34)
[2024-09-04] MEDS: MENTHOL 226.8 GM JAR 1 APPLIC TOPICAL (21:02)
[2024-09-04] MEDS: hydrALAZINE 25 MG Tablet PO (21:09)
[2024-09-04 21:47] LABS: Bedside Glucose 233 mg/dL (74-106)
[2024-09-05] VITALS (8 sets, daily range): BP systolic 138–160; BP diastolic 56–83; PULSE 77–97; RESP 16; TEMP 36.4; O2SAT 94–98; BMI 27.6
[2024-09-05] MEDS: 0.9% Normal Saline (1000mL) 1,000 ML 75 ML IV (01:30)
[2024-09-05] MEDS: Enoxaparin 40 MG/0.4 ML Syringe SC (05:21)
[2024-09-05] MEDS: Jevity 1.5. 1,000 ML Bottle 240 ML GT ×4 (05:21→21:49)
[2024-09-05] MEDS: Metoprolol Tartrate 25 MG Tablet PO ×3 (05:21→21:48)
[2024-09-05] MEDS: Insulin Glargine-YFGN 100 UNIT/ML Pen 28 UNIT SC ×2 (05:23→18:21)
[2024-09-05] MEDS: Insulin Lispro 100 UNIT/ML INSULN.PEN SC ×5 (05:24→21:58)
[2024-09-05] MEDS: Insulin Lispro 100 UNIT/ML INSULN.PEN 28 UNIT SC ×2 (05:24→13:09)
[2024-09-05 06:03] LABS: Bedside Glucose 224 mg/dL (74-106)
[2024-09-05] MEDS: Aspirin 81 MG TAB.CHEW GT (09:41)
[2024-09-05] MEDS: Gabapentin 400 MG Capsule GT ×3 (09:41→18:11)
[2024-09-05] MEDS: clonazePAM 0.5 MG Tablet PO ×2 (09:41→21:46)
[2024-09-05] MEDS: Clopidogrel Bisulfate 75 MG Tablet GT (09:42)
[2024-09-05] MEDS: Atorvastatin Calcium 40 MG Tablet GT (09:42)
[2024-09-05] MEDS: Famotidine 20 MG Tablet 40 MG GT (09:42)
[2024-09-05] MEDS: Docusate Sodium 100 MG/10 ML UDC GT ×2 (09:42→21:48)
[2024-09-05] MEDS: Sertraline 50 MG Tablet PO (09:43)
[2024-09-05] MEDS: Cholecalciferol (VIT D3) 25 MCG TABLET (1,000 UNITS) GT (09:43)
[2024-09-05] MEDS: 0.9% Saline Lock 10 ML Syringe IV ×2 (09:59→21:05)
[2024-09-05] MEDS: ALPRAZolam 0.25 MG Tablet 0.125 MG PO (11:03)
[2024-09-05] MEDS: MENTHOL 226.8 GM JAR 1 APPLIC TOPICAL ×2 (11:10→22:30)
[2024-09-05] MEDS: Menthol/Lanolin/Calamine/Znox 113 GM Tube 1 APPLIC TOPICAL ×2 (11:11→21:47)
[2024-09-05 12:26] LABS: Bedside Glucose 215 mg/dL (74-106)
[2024-09-05] MEDS: Nystatin Powder 15gm Bottle 1 APPLIC TOPICAL ×2 (13:20→21:59)
[2024-09-05 15:22] LABS: Bedside Glucose 203 mg/dL (74-106)
[2024-09-05] MEDS: Insulin Lispro 100 UNIT/ML INSULN.PEN 32 UNIT SC ×2 (15:22→18:22)
--- NOTE | 2024-09-05 18:11 | PCM.PROGNOTE ---
Subjective Subjective Afebrile Blood pressure this a.m. was 143/74 and the current blood pressure is 140/56. Orthostatics are negative today. Heart rate is within normal limits. The blood sugar record was reviewed. Blood sugars are coming under better control. The at bedtime with blood sugar was 233 and the blood sugars today have been 224 at 6 AM, 215 at noon and 203 at 3 PM. No hypoglycemia. She tolerated a pur?ed diet with speech therapist today and was placed on a 1600-calorie diet with pur?ed foods. She tells me she slept well last night. She is alert today and feeling better now that she has had some sleep. Weight today is down 2- 2 and 1/2 pounds since admission. this is likely due to IV volume depletion due to polyuria from elevated BS's. IV fluids ordered last night and we have increased the water flushes. She denies lightheadedness. she feels less anxious and the neuropathic pain in the legs is well controlled with the increase in the Gabapentin to 400 mg TID. Objective Data Objective Data Vital Signs: Vital Signs Temp Pulse Resp BP Pulse Ox O2 Del Method 97.6 F L 87 16 140/56 H 94 Room Air 09/05/24 05:47 09/05/24 13:24 09/05/24 05:47 09/05/24 13:24 09/05/24 05:47 09/05/24 10:00 Oxygen Delivery Method Room Air Weight: 150 lb 5.684 oz Body Mass Index (BMI) 27.6 Intake & Output: Intake and Output for Last 24 Hours 09/03/24 09/04/24 09/05/24 23:59 23:59 23:59 Intake Total 1400 / 1400 2310.00 / 2510.00 1120 / 1120 Output Total 1650 / 1650 Balance 1400 / 1400 2310.00 / 1810.00 -530 / -530 Lab / Micro Data 09/02/24 06:55 09/02/24 06:55 Labs: Laboratory Results - last 24 hr 09/04/24 17:44: POC Glucose 366 H 09/04/24 20:34: POC Glucose 233 H 09/05/24 05:23: POC Glucose 224 H 09/05/24 12:08: POC Glucose 215 H 09/05/24 15:03: POC Glucose 203 H Micro: Microbiology 08/29/24 15:53 Urine Catheter - Catheter Urine Culture - Final Yeast, not Shanna albicans Physical Exam Const alert and oriented x3 Constitutional Narrative: She is appropriate and not confused when I am speaking with her. HEENT Mouth: dry mucous membranes Resp normal respiratory effort, normal air movement, no use of accessory muscles and clear to auscultation bilaterally Resp Narrative: Not tachypneic. Effort and Inspection: able to speak in complete sentences Cardio regular rate, regular rhythm and no gallops GI normal to inspection, nondistended, normoactive bowel sounds, soft to palpation, non-tender, non-distended and no bruits Narrative: Had a pure wick catheter on the acute side of the hospital Extremity no calf tenderness and no pedal edema Skin Skin Narrative: no rashes. The mild mottling of the plantar surface of the toes is resolved. DP is 2+ BL. Psych Appearance: appropriate Activity / Motor Behavior: appropriate eye contact Assessment & Plan Assessment/Plan (1) Debility: (2) History of stroke: (3) Dysphagia: QUALIFIERS: Dysphagia type: unspecified Qualified Code(s): R13.10 - Dysphagia, unspecified (4) Right hemiparesis: (5) Facial droop: (6) Paresthesia of right upper and lower extremity: (7) 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 disease: (8) Diabetes mellitus with hyperglycemia, with long-term current use of insulin: QUALIFIERS: Diabetes mellitus type: type 2 Qualified Code(s): E11.65 - Type 2 diabetes mellitus with hyperglycemia; Z79.4 - shelter (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 (9) Essential (primary) hypertension: (10) Hyperlipidemia: QUALIFIERS: Hyperlipidemia type: mixed hyperlipidemia Qualified Code(s): E78.2 - Mixed hyperlipidemia (11) Mild cognitive impairment: (12) Anxiety and depression: (13) Polyneuropathy: (14) Hypophosphatemia: PLAN: Plan 1. Continue therapy 2. Adjustments were made to the insulin regimen. 3. Will continue tube feeds as scheduled through the weekend and monitor her intake with meals. If she is eating at least 50% of her meal then will decrease the tube feeds on Sunday. This will require more adjustment to the insulin schedule. 4. Continue metoprolol 25 mg every 8 hours and the Catapres TTS 1 patch. Have nursing check vital signs every 4 hours while awake through the weekend and adjust antihypertensive if needed on Sunday. 5. The 24-hour urine collection for metanephrines and catecholamines should finish tonight. I am aware that the Catapres and metoprolol likely interfere with the results however If the metanephrines and catecholamines are elevated this would give us more direction to proceed with further W/U to determine why she keeps having episodic confusion, uncontrolled BP's, uncontrolled sugars over the past 18 months 6. Recheck a BMP, phosphorus, magnesium and CBC on Sunday Charges/Coding Visit Charges Inpatient E&M: 66813 Subs Hosp L1
[2024-09-05 18:25] LABS: Bedside Glucose 265 mg/dL (74-106)
[2024-09-05] MEDS: morphine (oral solution) 10MG/0.5ML Syringe 5 MG SL (21:49)
[2024-09-05] MEDS: Insulin Lispro 100 UNIT/ML INSULN.PEN 20 UNIT SC (21:57)
[2024-09-05 23:13] LABS: Bedside Glucose 209 mg/dL (74-106)
[2024-09-06 05:00] VITALS: BP 133/70; PULSE 89; RESP 18; TEMP 37.1; O2SAT 95; BMI 28.0
[2024-09-06] MEDS: Insulin Lispro 100 UNIT/ML INSULN.PEN SC ×5 (05:18→21:32)
[2024-09-06] MEDS: Insulin Lispro 100 UNIT/ML INSULN.PEN 32 UNIT SC ×4 (05:19→17:44)
[2024-09-06] MEDS: Insulin Glargine-YFGN 100 UNIT/ML Pen 28 UNIT SC ×2 (05:20→17:48)
[2024-09-06 05:21] VITALS: BP 133/70; PULSE 89
[2024-09-06] MEDS: Jevity 1.5. 1,000 ML Bottle 240 ML GT ×5 (05:21→21:34)
[2024-09-06] MEDS: Metoprolol Tartrate 25 MG Tablet PO ×3 (05:21→21:35)
[2024-09-06] MEDS: Enoxaparin 40 MG/0.4 ML Syringe SC (05:22)
[2024-09-06 06:38] LABS: Bedside Glucose 171 mg/dL (74-106)
[2024-09-06] MEDS: Menthol/Lanolin/Calamine/Znox 113 GM Tube 1 APPLIC TOPICAL ×2 (09:52→20:52)
[2024-09-06] MEDS: clonazePAM 0.5 MG Tablet PO ×2 (09:56→21:30)
[2024-09-06] MEDS: Gabapentin 400 MG Capsule GT ×3 (09:56→16:22)
[2024-09-06] MEDS: Aspirin 81 MG TAB.CHEW GT (09:58)
[2024-09-06] MEDS: Docusate Sodium 100 MG/10 ML UDC GT (09:58)
[2024-09-06] MEDS: Nystatin Powder 15gm Bottle 1 APPLIC TOPICAL ×2 (09:59→20:51)
[2024-09-06] MEDS: Sertraline 50 MG Tablet PO (10:00)
[2024-09-06] MEDS: Atorvastatin Calcium 40 MG Tablet GT (10:01)
[2024-09-06] MEDS: Famotidine 20 MG Tablet 40 MG GT (10:03)
[2024-09-06] MEDS: Cholecalciferol (VIT D3) 25 MCG TABLET (1,000 UNITS) GT (10:04)
[2024-09-06] MEDS: Clopidogrel Bisulfate 75 MG Tablet GT (10:04)
[2024-09-06] MEDS: 0.9% Saline Lock 10 ML Syringe IV ×2 (10:09→20:53)
[2024-09-06 10:31] LABS: Bedside Glucose 209 mg/dL (74-106)
[2024-09-06 13:36] VITALS: BP 162/68; PULSE 89
[2024-09-06 13:52] VITALS: BP 162/68; PULSE 89
[2024-09-06 14:10] LABS: Bedside Glucose 238 mg/dL (74-106)
[2024-09-06 15:12] VITALS: BMI 28.0
[2024-09-06] MEDS: morphine (oral solution) 10MG/0.5ML Syringe 5 MG SL ×2 (16:21→21:01)
[2024-09-06 17:40] VITALS: BP 158/67; PULSE 89; RESP 16; TEMP 36.6; O2SAT 95
[2024-09-06 18:13] LABS: Bedside Glucose 221 mg/dL (74-106)
[2024-09-06] MEDS: Insulin Lispro 100 UNIT/ML INSULN.PEN 20 UNIT SC (21:33)
[2024-09-06 21:35] VITALS: BP 131/58; PULSE 90; RESP 16; TEMP 36.8; O2SAT 96; BMI 28.0
[2024-09-06 22:48] LABS: Bedside Glucose 197 mg/dL (74-106)
[2024-09-07] VITALS (8 sets, daily range): BP systolic 125–154; BP diastolic 55–64; PULSE 84–94; RESP 15–17; TEMP 36.5–36.7; O2SAT 92–97; BMI 27.3
[2024-09-07] MEDS: Enoxaparin 40 MG/0.4 ML Syringe SC (05:39)
[2024-09-07] MEDS: Metoprolol Tartrate 25 MG Tablet PO ×3 (05:40→20:59)
[2024-09-07] MEDS: Jevity 1.5. 1,000 ML Bottle 240 ML GT ×5 (05:41→21:03)
[2024-09-07] MEDS: Insulin Glargine-YFGN 100 UNIT/ML Pen 28 UNIT SC ×2 (05:43→18:15)
[2024-09-07] MEDS: Insulin Lispro 100 UNIT/ML INSULN.PEN 32 UNIT SC ×4 (05:45→18:14)
[2024-09-07 07:05] LABS: Bedside Glucose 114 mg/dL (74-106)
[2024-09-07] MEDS: Gabapentin 400 MG Capsule GT ×3 (08:25→18:09)
[2024-09-07] MEDS: clonazePAM 0.5 MG Tablet PO ×2 (08:25→21:00)
[2024-09-07] MEDS: Aspirin 81 MG TAB.CHEW GT (08:26)
[2024-09-07] MEDS: Menthol/Lanolin/Calamine/Znox 113 GM Tube 1 APPLIC TOPICAL ×2 (08:47→21:00)
[2024-09-07] MEDS: Nystatin Powder 15gm Bottle 1 APPLIC TOPICAL ×2 (08:49→21:05)
[2024-09-07] MEDS: Insulin Lispro 100 UNIT/ML INSULN.PEN SC ×4 (10:31→21:01)
[2024-09-07] MEDS: Clopidogrel Bisulfate 75 MG Tablet GT (10:33)
[2024-09-07] MEDS: Sertraline 50 MG Tablet PO (10:33)
[2024-09-07] MEDS: Cholecalciferol (VIT D3) 25 MCG TABLET (1,000 UNITS) GT (10:33)
[2024-09-07] MEDS: Famotidine 20 MG Tablet 40 MG GT (10:33)
[2024-09-07] MEDS: Atorvastatin Calcium 40 MG Tablet GT (10:33)
[2024-09-07 11:02] LABS: Bedside Glucose 232 mg/dL (74-106)
[2024-09-07 12:25] LABS: Bedside Glucose 277 mg/dL (74-106)
[2024-09-07] MEDS: 0.9% Saline Lock 10 ML Syringe IV ×2 (14:15→21:05)
[2024-09-07 14:57] LABS: Bedside Glucose 215 mg/dL (74-106)
[2024-09-07 16:57] LABS: Bedside Glucose 278 mg/dL (74-106)
[2024-09-07 18:38] LABS: Bedside Glucose 228 mg/dL (74-106)
[2024-09-07] MEDS: Insulin Lispro 100 UNIT/ML INSULN.PEN 20 UNIT SC (21:02)
[2024-09-07] MEDS: morphine (oral solution) 10MG/0.5ML Syringe 5 MG SL (21:25)
[2024-09-07 22:33] LABS: Bedside Glucose 244 mg/dL (74-106)
[2024-09-08] MEDS: Insulin Lispro 100 UNIT/ML INSULN.PEN SC ×5 (05:08→21:38)
[2024-09-08] MEDS: Insulin Lispro 100 UNIT/ML INSULN.PEN 32 UNIT SC ×4 (05:09→18:32)
[2024-09-08] MEDS: Insulin Glargine-YFGN 100 UNIT/ML Pen 28 UNIT SC ×2 (05:16→18:34)
[2024-09-08] MEDS: Jevity 1.5. 1,000 ML Bottle 240 ML GT ×4 (05:19→21:41)
[2024-09-08 05:21] VITALS: BP 142/59; PULSE 89
[2024-09-08] MEDS: Metoprolol Tartrate 25 MG Tablet PO ×3 (05:21→21:40)
[2024-09-08] MEDS: Enoxaparin 40 MG/0.4 ML Syringe SC (05:29)
[2024-09-08 05:42] VITALS: BP 142/59; PULSE 89; RESP 15; TEMP 36.4; O2SAT 97; BMI 27.5
[2024-09-08 05:51] LABS: Hematocrit 36.2 % (37-47); Hemoglobin 12.1 g/dL (12.0-15.0); Mean Corp Hgb Conc 33.4 g/dL (32-36); Mean Corpuscular Hgb 31.3 pg (27.0-32.0); Mean Corpuscular Volume 93.8 fL (81-99); Mean Platelet Vol. 9.6 fl (6.2-12.0); Platelet Count 312 K/mm3 (150-450); RBC Distribution Width CV 13.2 % (11.6-14.6); RBC Distribution Width SD 44.8 fl (35.1-43.9); Red Blood Count 3.86 M/mm3 (4.2-5.4); White Blood Count 9.6 K/mm3 (4.4-11.0)
[2024-09-08 06:12] LABS: Bedside Glucose 165 mg/dL (74-106)
[2024-09-08 06:17] LABS: Anion Gap 10 (5-15); BUN 17 mg/dL (7-18); BUN/Creat Ratio 20.7 RATIO (10-20); Calcium,Total 9.6 mg/dL (8.5-10.1); Chloride 102 mmol/L (98-107); Creatinine, Serum 0.82 mg/dL (0.55-1.02); EST Glomerular Filtration Rate 71 mL/min (>60); Est Glom Filt Rate - Afr Amer 86 mL/min (>60); Estimated Creatinine Clearance 47.91 ml/min; Glucose 188 mg/dL (74-106); Magnesium 1.8 mg/dL (1.6-2.6); Phosphorus 4.8 mg/dL (2.5-4.9); Potassium 4.4 mmol/L (3.5-5.1); Sodium Level 138 mmol/L (136-145)
--- NOTE | 2024-09-08 07:33 | PCM.PROGNOTE ---
Subjective Subjective Afebrile VSS -blood pressures over the past 48 hours have ranged from 125/57 to 158/67. Heart rate is within normal limits. Maintaining appropriate oxygen saturation on RA-92 to 97% Oral intake - FOOD per nursing she is eating around 50% of her meals. FLUIDS poor oral fluid intake. Yesterday's fluid intake orally was 280 cc. She was in negative fluid balance yesterday. The blood sugar record was reviewed. Discussed with nursing - no problems that need addressed Reviewed the THERAPY notes Medication list reviewed. Has not had any Xanax since Sunday. Has not needed Apresoline since 09/04/2024. All lab from today was personally reviewed. White blood cell count is normal at 9.6. Hemoglobin is stable at 12.1 and platelets are within normal limits. Sodium is 138 and the potassium is 4.4. Serum bicarb is normal at 26. BUN is 17 with a creatinine of 0.82. Magnesium is 1.8 and the phosphorus is 4 point. Danica is c/o feeling sleepy today. Thought processes seem a little slow today. Denies feeling anxious. Occasional nausea. no emesis. She has some lightheadedness with standing. Had a lot of loose stool over the weekend. Objective Data Objective Data Vital Signs: Vital Signs Temp Pulse Resp BP Pulse Ox O2 Del Method 97.5 F L 89 15 142/59 H 97 Room Air 09/08/24 05:42 09/08/24 05:42 09/08/24 05:42 09/08/24 05:42 09/08/24 05:42 09/08/24 05:42 Oxygen Delivery Method Room Air Weight: 150 lb 9.211 oz Body Mass Index (BMI) 27.5 Intake & Output: Intake and Output for Last 24 Hours 09/06/24 09/07/24 09/08/24 23:59 23:59 23:59 Intake Total 2590 / 2590 2185 / 2185 200 / 200 Output Total 2125 / 2125 3050 / 3050 350 / 350 Balance 465 / 465 -865 / -865 -150 / -150 Lab / Micro Data 09/08/24 05:41 09/08/24 05:41 Labs: Laboratory Results - last 24 hr 09/07/24 10:27: POC Glucose 232 H 09/07/24 12:04: POC Glucose 277 H 09/07/24 14:17: POC Glucose 215 H 09/07/24 16:33: POC Glucose 278 H 09/07/24 18:09: POC Glucose 228 H 09/07/24 20:59: POC Glucose 244 H 09/08/24 05:06: POC Glucose 165 H 09/08/24 05:41: WBC 9.6, RBC 3.86 L, Hgb 12.1, Hct 36.2 L, MCV 93.8, MCH 31.3, MCHC 33.4, RDW Std Deviation 44.8 H, RDW Coeff of Win 13.2, Plt Count 312, MPV 9.6, Sodium 138, Potassium 4.4, Chloride 102, Carbon Dioxide 26.0, Anion Gap 10, BUN 17, Creatinine 0.82, Estim Creat Clear Calc 47.91, Est GFR (MDRD) Af Amer 86, Est GFR (MDRD) Non-Af 71, BUN/Creatinine Ratio 20.7 H, Glucose 188 H, Calcium 9.6, Phosphorus 4.8, Magnesium 1.8 Micro: Microbiology 08/29/24 15:53 Urine Catheter - Catheter Urine Culture - Final Yeast, not Shanna albicans Physical Exam Neuro Neuro Narrative: facial droop is improving. She is enunciating better and speech is clearly understood. Right arm still drifts a little but does not hit the bed. Less drift and there was at admission to rehab. Strength in the right lower extremity is improved since admission. At admission she had no effort against gravity and now she has drift but it does not hit the bed. Intact sensation. No ataxia today. No aphasia. Slowed thought process. I suspect the medications are contributing to this. Psych Psych Narrative: not anxious today.....has not needed any Alprazolam since Sunday. Sleeping better at night. Appearance: appropriate Assessment & Plan Assessment/Plan (1) Debility: (2) History of stroke: (3) Dysphagia: QUALIFIERS: Dysphagia type: unspecified Qualified Code(s): R13.10 - Dysphagia, unspecified (4) Right hemiparesis: (5) Facial droop: (6) Paresthesia of right upper and lower extremity: (7) 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 disease: (8) Diabetes mellitus with hyperglycemia, with long-term current use of insulin: QUALIFIERS: Diabetes mellitus type: type 2 Qualified Code(s): E11.65 - Type 2 diabetes mellitus with hyperglycemia; Z79.4 - skilled nursing (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 (9) Essential (primary) hypertension: (10) Hyperlipidemia: QUALIFIERS: Hyperlipidemia type: mixed hyperlipidemia Qualified Code(s): E78.2 - Mixed hyperlipidemia (11) Mild cognitive impairment: (12) Anxiety and depression: (13) Polyneuropathy: PLAN: Plan 1. Continue therapy 2. Decrease the tube feed during the day to 120 cc and continue 175 cc fluid flush. 3. Decrease the at bedtime lispro to 18 units. Continue the current dosing during the day and continue the sliding insulin scale. 4. Orthostatic vital signs today. If she is orthostatic we will increase the water flushes to 200 again. 5. Atrovent nasal spray for complaint of postnasal drainage/cough at night 6. Decrease the daytime gabapentin to 300 mg twice daily and continue the 400 mg dose at bedtime. Hold the 2 PM dose today. 7. Discontinue the Ugalde catheter today and check a UA prior to discontinuation. 8. Decrease the Klonopin in the a.m. to 0.125 mg. 9. Continue Catapres TTS 1 patch.......due to be changed on the ......consider increasing the dose to TTS 2 if the systolics are still > 140 Charges/Coding Visit Charges Inpatient E&M: 13488 Subs Hosp L1
[2024-09-08] MEDS: Nystatin Powder 15gm Bottle 1 APPLIC TOPICAL ×2 (08:46→20:30)
[2024-09-08] MEDS: Menthol/Lanolin/Calamine/Znox 113 GM Tube 1 APPLIC TOPICAL ×2 (08:46→20:30)
[2024-09-08] MEDS: Gabapentin 400 MG Capsule GT (08:47)
[2024-09-08] MEDS: clonazePAM 0.5 MG Tablet PO ×2 (08:47→20:21)
[2024-09-08] MEDS: Famotidine 20 MG Tablet 40 MG GT (08:47)
[2024-09-08] MEDS: Sertraline 50 MG Tablet PO (08:48)
[2024-09-08] MEDS: Aspirin 81 MG TAB.CHEW GT (08:48)
[2024-09-08] MEDS: 0.9% Saline Lock 10 ML Syringe IV (08:49)
[2024-09-08] MEDS: Clopidogrel Bisulfate 75 MG Tablet GT (09:59)
[2024-09-08] MEDS: Atorvastatin Calcium 40 MG Tablet GT (09:59)
[2024-09-08] MEDS: Cholecalciferol (VIT D3) 25 MCG TABLET (1,000 UNITS) GT (09:59)
[2024-09-08 10:31] VITALS: BP 143/67; BP 163/88; BP 168/84; PULSE 106; PULSE 84; PULSE 96
[2024-09-08 11:13] LABS: Mucous, Urine 0 SEEN /hpf (<or=2+); Squamous Epithelial Cells - UA 0 SEEN /hpf (5-10)
[2024-09-08 11:14] LABS: Bedside Glucose 205 mg/dL (74-106)
[2024-09-08 11:22] LABS: Color, Urine Yellow (Yellow); Glucose, Dipstick Normal (Normal); Ketone-Dipstick 5 mg/dl (Negative); Leukocyte Esterase-Dipstick 500 /ul (Negative); Nitrite-Dipstick Positive (Negative); Occult Blood-Urine 250 /ul (Negative); Protein-Dipstick 30 mg/dl (Negative); Specific Gravity, Urine 1.025 (1.002-1.030); Urine Bilirubin Dipstick Negative (Negative); Urine Clarity Sl. Cloudy (Clear); Urine Urobilinogen Normal (Normal)
[2024-09-08 12:30] LABS: Bacteria 2+ /hpf (None Seen); White Blood Cells >100 SEEN /hpf (0-5)
[2024-09-08 12:31] LABS: Red Blood Cells-Urine 0-5 SEEN /hpf (0-5)
[2024-09-08 14:19] VITALS: BMI 27.5
[2024-09-08 14:33] VITALS: PULSE 92
[2024-09-08 15:02] LABS: Bedside Glucose 265 mg/dL (74-106)
[2024-09-08 17:37] LABS: Bedside Glucose 260 mg/dL (74-106)
[2024-09-08 18:00] VITALS: BP 140/52; PULSE 89; RESP 16; TEMP 37; O2SAT 93
[2024-09-08] MEDS: Jevity 1.5. 1,000 ML Bottle 120 ML GT (18:31)
[2024-09-08] MEDS: Gabapentin 400 MG Capsule PO (20:21)
[2024-09-08] MEDS: morphine (oral solution) 10MG/0.5ML Syringe 5 MG SL (20:23)
[2024-09-08] MEDS: MENTHOL 226.8 GM JAR 1 APPLIC TOPICAL (20:25)
[2024-09-08] MEDS: Insulin Lispro 100 UNIT/ML INSULN.PEN 18 UNIT SC (21:38)
[2024-09-08 21:40] VITALS: BP 160/64; PULSE 89
[2024-09-08] MEDS: Docusate Sodium 100 MG/10 ML UDC GT (21:40)
[2024-09-08 22:15] LABS: Bedside Glucose 182 mg/dL (74-106)
[2024-09-09 05:53] VITALS: BP 160/68; PULSE 89; RESP 18; TEMP 36.7; O2SAT 96
[2024-09-09 05:54] VITALS: BMI 27.3
[2024-09-09] MEDS: Enoxaparin 40 MG/0.4 ML Syringe SC (06:02)
[2024-09-09] MEDS: Insulin Glargine-YFGN 100 UNIT/ML Pen 28 UNIT SC ×2 (06:05→18:19)
[2024-09-09] MEDS: Insulin Lispro 100 UNIT/ML INSULN.PEN 32 UNIT SC ×4 (06:06→18:10)
[2024-09-09 06:07] VITALS: BP 160/68; PULSE 89
[2024-09-09] MEDS: Metoprolol Tartrate 25 MG Tablet PO ×3 (06:07→22:47)
[2024-09-09] MEDS: Jevity 1.5. 1,000 ML Bottle 120 ML GT ×2 (06:07→14:41)
[2024-09-09 07:07] LABS: Bedside Glucose 121 mg/dL (74-106)
[2024-09-09] MEDS: clonazePAM 0.5 MG Tablet 0.125 MG PO (08:13)
[2024-09-09] MEDS: Gabapentin 300 MG Capsule GT ×2 (08:13→14:39)
[2024-09-09] MEDS: Aspirin 81 MG TAB.CHEW GT (08:14)
[2024-09-09] MEDS: Ipratropium Bromide 0.06% NASAL SPRAY 2 SPRAY NASAL ×2 (08:14→22:48)
[2024-09-09] MEDS: Menthol/Lanolin/Calamine/Znox 113 GM Tube 1 APPLIC TOPICAL ×2 (08:15→22:48)
[2024-09-09] MEDS: 0.9% Saline Lock 10 ML Syringe IV (08:15)
[2024-09-09] MEDS: Nystatin Powder 15gm Bottle 1 APPLIC TOPICAL ×2 (08:15→22:48)
[2024-09-09] MEDS: Clopidogrel Bisulfate 75 MG Tablet GT (08:16)
[2024-09-09] MEDS: Sertraline 50 MG Tablet PO (08:16)
[2024-09-09] MEDS: Cholecalciferol (VIT D3) 25 MCG TABLET (1,000 UNITS) GT (08:16)
[2024-09-09] MEDS: Atorvastatin Calcium 40 MG Tablet GT (08:17)
[2024-09-09] MEDS: Famotidine 20 MG Tablet 40 MG GT (08:17)
--- NOTE | 2024-09-09 08:31 | PCM.PROGNOTE ---
Subjective Subjective Afebrile VSS - orthostatics were negative yesterday Maintaining appropriate oxygen saturation on RA Oral intake - FOOD has been doing 50 to 75% of most meals But this morning had 75 to 100% of her breakfast. FLUIDS fluid balance yesterday was -865 but overnight she was +845. The blood sugar record was reviewed. The postvoid residual yesterday was 9 after the Ugalde was discontinued. UA was ordered prior to discontinuing the Ugalde and it was positive for nitrite and had greater than 100 WBCs per high-powered field. There was 2+ bacteria. Urine culture is pending. White blood cell count yesterday was within normal limits. 3 bowel movements yesterday Discussed with nursing - no problems that need addressed Reviewed the THERAPY notes Medication list reviewed. Much more alert today. Tells me she slept well last night. Not complaining of leg pain. She is complaining of some nausea and she attributes this to eating 75 to 100% of her breakfast and getting a half tube feed. Denies lightheadedness. [place] CP, SOB, cough, cephalgia, dysuria, calf pain. The drainage from around the PEG site is growing 3+ gram-negative rods. 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 Objective Data Objective Data Vital Signs: Vital Signs Temp Pulse Resp BP Pulse Ox O2 Del Method 98.1 F 89 18 160/68 H 96 Room Air 09/09/24 05:53 09/09/24 06:07 09/09/24 05:53 09/09/24 06:07 09/09/24 05:53 09/09/24 05:53 Oxygen Delivery Method Room Air Weight: 149 lb 11.102 oz Body Mass Index (BMI) 27.3 Intake & Output: Intake and Output for Last 24 Hours 09/07/24 09/08/24 09/09/24 23:59 23:59 23:59 Intake Total 2185 / 2185 1495 / 1495 Output Total 3050 / 3050 650 / 650 Balance -865 / -865 845 / 845 Lab / Micro Data 09/08/24 05:41 09/08/24 05:41 Labs: Laboratory Results - last 24 hr 09/08/24 10:04: POC Glucose 205 H 09/08/24 10:55: Urine Color Yellow, Urine Clarity Sl. Cloudy, Urine pH 5.0, Ur Specific [place] 1.025, Urine Protein 30 H, Urine Glucose (UA) Normal, Urine Ketones 5 H, Urine Occult Blood 250 H, Urine Nitrite Positive H, Urine Bilirubin Negative, Urine Urobilinogen Normal, Ur Leukocyte Esterase 500 H, Urine RBC 0-5 SEEN, Urine WBC >100 SEEN, Ur Squamous Epith Cells 0 SEEN, Urine Bacteria 2+, Urine Mucus 0 SEEN 09/08/24 14:31: POC Glucose 265 H 09/08/24 17:17: POC Glucose 260 H 09/08/24 21:37: POC Glucose 182 H 09/09/24 06:05: POC Glucose 121 H Micro: Microbiology 09/08/24 08:30 Wound - Abdominal Gram Stain - Final 08/29/24 15:53 Urine Catheter - Catheter Urine Culture - Final Yeast, not Shanna albicans Physical Exam Const alert Constitutional Narrative: Speech is more fluid today General Appearance: cooperative Resp normal respiratory effort and clear to auscultation bilaterally Effort and Inspection: Negative for tachypneic Cardio regular rate, regular rhythm and no gallops Cardio Narrative: No ectopy GI GI Narrative: The abdomen is mildly distended and a little tympanic. Active bowel sounds heard in all 4 quadrants. No guarding with palpation. No guarding with palpation. Nausea but, no emesis. The PEG has localized slough around the tube but, no significant erythema and no increased warmth to touch. I could not express any DC from around the tube but, nursing took a swab to send for culture and the preliminary micro report is growing 3+ gram-negative matt. Extremity no calf tenderness General Extremity: Negative for edema Skin Rashes: no rashes Assessment & Plan Assessment/Plan (1) Debility: (2) History of stroke: (3) Dysphagia: QUALIFIERS: Dysphagia type: unspecified Qualified Code(s): R13.10 - Dysphagia, unspecified (4) Right hemiparesis: (5) Facial droop: (6) Paresthesia of right upper and lower extremity: (7) 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 disease: (8) Diabetes mellitus with hyperglycemia, with long-term current use of insulin: QUALIFIERS: Diabetes mellitus type: type 2 Qualified Code(s): E11.65 - Type 2 diabetes mellitus with hyperglycemia; Z79.4 - manager terminal (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 (9) Essential (primary) hypertension: (10) Hyperlipidemia: QUALIFIERS: Hyperlipidemia type: mixed hyperlipidemia Qualified Code(s): E78.2 - Mixed hyperlipidemia (11) Mild cognitive impairment: (12) Anxiety and depression: (13) Polyneuropathy: PLAN: Plan 1. Continue therapy 2. Start Augmentin 875 milligrams twice daily per PEG tube 3. The Catapres TTS 1 patch is due to be changed on 09/10/2024. Will transition to a TTS 2 patch with this change. goal BP is consistently < 140/80 4. If she eats at least 50% of her meals will hold the tube feed. Continue to give 240 mL to feed at bedtime. 5. Adjust the water flushes to achieve 1100 cc daily and flushes. Give the flushes separate from meals so she does not get bloated. 6. Urine catecholamines and metanephrines are pending. Charges/Coding Visit Charges Inpatient E&M: 50957 Subs Hosp L1
[2024-09-09] MEDS: Mupirocin Ointment 22gm Tube 1 APPLIC TOPICAL ×2 (09:57→22:48)
[2024-09-09] MEDS: Insulin Lispro 100 UNIT/ML INSULN.PEN SC (10:04)
[2024-09-09 10:21] LABS: Bedside Glucose 245 mg/dL (74-106)
[2024-09-09 12:46] LABS: Bedside Glucose 99 mg/dL (74-106)
[2024-09-09 14:35] VITALS: BMI 27.3
[2024-09-09 14:39] VITALS: PULSE 89
[2024-09-09 14:50] LABS: Bedside Glucose 181 mg/dL (74-106)
[2024-09-09] MEDS: Amox/Clav 400mg/5ml Susp 875 MG GT (16:52)
[2024-09-09 17:41] LABS: Bedside Glucose 103 mg/dL (74-106)
[2024-09-09 18:00] VITALS: BP 148/65; PULSE 77; RESP 16; TEMP 36.8; O2SAT 94
[2024-09-09] MEDS: Glucagon 1 MG/ML Syringe IM (21:13)
[2024-09-09 22:35] LABS: Bedside Glucose 50 mg/dL (74-106)
[2024-09-09 22:36] LABS: Bedside Glucose 157 mg/dL (74-106)
[2024-09-09 22:47] VITALS: BP 143/56; PULSE 83
[2024-09-09] MEDS: morphine (oral solution) 10MG/0.5ML Syringe 5 MG SL (22:47)
[2024-09-09] MEDS: clonazePAM 0.5 MG Tablet PO (22:47)
[2024-09-09] MEDS: Gabapentin 400 MG Capsule PO (22:47)
[2024-09-09] MEDS: Jevity 1.5. 1,000 ML Bottle 240 ML GT (22:48)
[2024-09-10 02:35] VITALS: BMI 27.3
[2024-09-10 06:00] VITALS: BMI 27.8
[2024-09-10 06:22] VITALS: BP 159/63; PULSE 85; RESP 16; TEMP 36.3; O2SAT 97
[2024-09-10 06:32] VITALS: BP 159/63; PULSE 85
[2024-09-10] MEDS: Jevity 1.5. 1,000 ML Bottle 120 ML GT ×2 (06:32→18:33)
[2024-09-10] MEDS: Enoxaparin 40 MG/0.4 ML Syringe SC (06:32)
[2024-09-10] MEDS: Metoprolol Tartrate 25 MG Tablet PO ×3 (06:32→20:58)
[2024-09-10 07:18] LABS: Bedside Glucose 151 mg/dL (74-106)
[2024-09-10] MEDS: Insulin Lispro 100 UNIT/ML INSULN.PEN 26 UNIT SC (09:16)
[2024-09-10] MEDS: Insulin Glargine-YFGN 100 UNIT/ML Pen 28 UNIT SC ×2 (09:16→18:34)
[2024-09-10] MEDS: clonazePAM 0.5 MG Tablet 0.125 MG PO (09:17)
[2024-09-10] MEDS: Aspirin 81 MG TAB.CHEW GT (09:17)
[2024-09-10] MEDS: Gabapentin 300 MG Capsule GT ×2 (09:17→13:11)
[2024-09-10] MEDS: Ipratropium Bromide 0.06% NASAL SPRAY 2 SPRAY NASAL ×2 (09:18→21:02)
[2024-09-10] MEDS: Menthol/Lanolin/Calamine/Znox 113 GM Tube 1 APPLIC TOPICAL ×2 (09:18→21:02)
[2024-09-10] MEDS: Mupirocin Ointment 22gm Tube 1 APPLIC TOPICAL ×2 (09:18→21:01)
[2024-09-10] MEDS: Atorvastatin Calcium 40 MG Tablet GT (09:19)
[2024-09-10] MEDS: Famotidine 20 MG Tablet 40 MG GT (09:19)
[2024-09-10] MEDS: Clopidogrel Bisulfate 75 MG Tablet GT (09:19)
[2024-09-10] MEDS: Cholecalciferol (VIT D3) 25 MCG TABLET (1,000 UNITS) GT (09:19)
[2024-09-10] MEDS: Nystatin Powder 15gm Bottle 1 APPLIC TOPICAL ×2 (09:19→21:02)
[2024-09-10] MEDS: Sertraline 50 MG Tablet PO (09:19)
[2024-09-10] MEDS: cloNIDine HCl 0.2 MG Patch TD (09:20)
--- NOTE | 2024-09-10 09:40 | NURSING ---
Dr Pastor notified to clarify humalog dose for blood sugar of 133. humalog given as ordered per MAR.
[2024-09-10] MEDS: Ceftriaxone 1 GM/50 ML BAG IV (11:07)
[2024-09-10] MEDS: 0.9% Saline Lock 10 ML Syringe IV (11:07)
[2024-09-10 12:11] LABS: Bedside Glucose 208 mg/dL (74-106)
[2024-09-10] MEDS: Insulin Lispro 100 UNIT/ML INSULN.PEN 28 UNIT SC (13:08)
[2024-09-10] MEDS: Insulin Lispro 100 UNIT/ML INSULN.PEN SC (13:08)
[2024-09-10 13:11] VITALS: BP 145/76; PULSE 82
[2024-09-10 16:20] VITALS: BMI 27.8
[2024-09-10 17:02] LABS: Bedside Glucose 57 mg/dL (74-106)
[2024-09-10 17:14] LABS: Bedside Glucose 81 mg/dL (74-106)
[2024-09-10 18:00] VITALS: BP 166/77; PULSE 74; RESP 16; TEMP 37.2
[2024-09-10] MEDS: Insulin Lispro 100 UNIT/ML INSULN.PEN 22 UNIT SC (19:26)
[2024-09-10 20:58] VITALS: BP 173/75; PULSE 93
[2024-09-10] MEDS: Gabapentin 400 MG Capsule PO (20:59)
[2024-09-10] MEDS: Jevity 1.5. 1,000 ML Bottle 240 ML GT (20:59)
[2024-09-10] MEDS: clonazePAM 0.5 MG Tablet PO (20:59)
[2024-09-10] MEDS: morphine (oral solution) 10MG/0.5ML Syringe 5 MG SL (21:08)
[2024-09-10 21:09] VITALS: PULSE 93
[2024-09-10] MEDS: hydrALAZINE 25 MG Tablet PO (21:09)
[2024-09-10] MEDS: MENTHOL 226.8 GM JAR 1 APPLIC TOPICAL (21:58)
[2024-09-10 22:07] LABS: Bedside Glucose 133 mg/dL (74-106)
[2024-09-10] MEDS: Insulin Lispro 100 UNIT/ML INSULN.PEN 8 UNIT SC (22:11)
[2024-09-11 00:13] VITALS: BMI 27.8
[2024-09-11 06:00] VITALS: BP 146/63; PULSE 82; RESP 16; TEMP 36.2; O2SAT 95; BMI 27.8
[2024-09-11] MEDS: Metoprolol Tartrate 25 MG Tablet PO ×3 (06:00→20:42)
[2024-09-11] MEDS: Enoxaparin 40 MG/0.4 ML Syringe SC (06:00)
[2024-09-11] MEDS: Insulin Glargine-YFGN 100 UNIT/ML Pen 28 UNIT SC ×2 (06:00→17:46)
[2024-09-11 06:32] LABS: Bedside Glucose 184 mg/dL (74-106)
[2024-09-11] MEDS: Sertraline 50 MG Tablet PO (08:39)
[2024-09-11] MEDS: Cholecalciferol (VIT D3) 25 MCG TABLET (1,000 UNITS) GT (08:39)
[2024-09-11] MEDS: Famotidine 20 MG Tablet 40 MG GT (08:39)
[2024-09-11] MEDS: Aspirin 81 MG TAB.CHEW GT (08:39)
[2024-09-11] MEDS: Clopidogrel Bisulfate 75 MG Tablet GT (08:39)
[2024-09-11] MEDS: Atorvastatin Calcium 40 MG Tablet GT (08:39)
[2024-09-11] MEDS: Docusate Sodium 100 MG/10 ML UDC GT (08:39)
[2024-09-11] MEDS: clonazePAM 0.5 MG Tablet 0.125 MG PO (08:42)
[2024-09-11] MEDS: Insulin Lispro 100 UNIT/ML INSULN.PEN SC (08:42)
[2024-09-11] MEDS: Gabapentin 300 MG Capsule GT ×2 (08:42→14:48)
[2024-09-11] MEDS: Insulin Lispro 100 UNIT/ML INSULN.PEN 22 UNIT SC ×2 (08:43→12:28)
[2024-09-11] MEDS: Menthol/Lanolin/Calamine/Znox 113 GM Tube 1 APPLIC TOPICAL ×2 (08:45→20:58)
[2024-09-11] MEDS: Nystatin Powder 15gm Bottle 1 APPLIC TOPICAL ×2 (08:45→20:58)
[2024-09-11] MEDS: Ipratropium Bromide 0.06% NASAL SPRAY 2 SPRAY NASAL ×2 (08:46→20:43)
[2024-09-11] MEDS: Mupirocin Ointment 22gm Tube 1 APPLIC TOPICAL ×2 (08:46→21:00)
--- NOTE | 2024-09-11 08:52 | PN_ITS ---
Subjective Subjective Danica was seen on TEAM rounds today. Her family was present in the room. All questions were answered to their satisfaction. Day #2/7 for Rocephin Afebrile VSS -blood pressure yesterday ranged from 145/76 to 173/75. Blood pressure this a.m. is 146/63. The Catapres patch was increased to TTS 2 yesterday. Heart rate is within normal limits. Maintaining appropriate oxygen saturation on RA Oral intake - FOOD fair. Eating 25 to 49% of every other meal and 75 to 100% with the next meal. FLUIDS fluid intake yesterday was 1680. Outputs could not be measured due to incontinence. Weight is stable. The blood sugar record was reviewed. Discussed with nursing - no problems that need addressed Reviewed the THERAPY notes Medication list reviewed. Metanephrines and catecholamines are still pending. Danica tells me the nausea is better since she is not receiving tube feeding and eating at the same time. No emesis. She denies shortness of breath, cough, cephalgia, abdominal pain, calf tenderness. Objective Data Objective Data Vital Signs: Vital Signs Temp Pulse Resp BP Pulse Ox O2 Del Method 97.2 F L 82 16 146/63 H 95 Room Air 09/11/24 06:00 09/11/24 06:00 09/11/24 06:00 09/11/24 06:00 09/11/24 06:00 09/11/24 06:00 Oxygen Delivery Method Room Air Weight: 152 lb 1.903 oz Body Mass Index (BMI) 27.8 Intake & Output: Intake and Output for Last 24 Hours 09/09/24 09/10/24 09/11/24 23:59 23:59 23:59 Intake Total 1620 / 1620 1680 / 1680 270 / 270 Balance 1620 / 1620 1680 / 1680 270 / 270 Lab / Micro Data 09/08/24 05:41 09/08/24 05:41 Labs: Laboratory Results - last 24 hr 09/10/24 11:14: POC Glucose 208 H 09/10/24 16:22: POC Glucose 57 L 09/10/24 16:57: POC Glucose 81 09/10/24 21:12: POC Glucose 133 H 09/11/24 05:51: POC Glucose 184 H Micro: Microbiology 09/08/24 08:30 Wound - Abdominal Gram Stain - Final 09/08/24 08:30 Wound - Abdominal Wound Culture - Final Serratia marcescens 09/08/24 10:55 Urine Catheter - Ugalde Urine Culture - Final Citrobacter freundii 08/29/24 15:53 Urine Catheter - Catheter Urine Culture - Final Yeast, not Shanna albicans Physical Exam Const alert Constitutional Narrative: Speech is more fluid today and she is very appropriate. Quicker to respond to questions. Ambulated 42 today with a WW. General Appearance: cooperative Eyes PERRL and EOMs intact bilaterally Resp normal respiratory effort and clear to auscultation bilaterally Effort and Inspection: Negative for tachypneic Cardio regular rate, regular rhythm and no gallops Cardio Narrative: No ectopy GI GI Narrative: Soft, nondistended, nontender to palpation, bowel sounds present. No guarding with palpation. Extremity no calf tenderness General Extremity: Negative for edema Skin Rashes: no rashes Psych cooperative Psych Narrative: not anxious and has not be needing any Xanax. Anxiety is well controlled on the present drug regimen. Will recommend psychotherapy at [facility]. 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 Continue therapy 2. Change the Jevity 1.5 tube feeds to 200 cc if she does not eat at least 50% of her meal. 3. Increase the at bedtime lispro to 10 units. Continue glargine 28 units twice daily. 4. Increase sertraline to 75 mg daily 5. will likely need SNF at [facility] from rehab. currently no beds on TCU. Family to give us alternatives if there if a bed does not open up. Charges/Coding Visit Charges Inpatient E&M: 94375 Subs Hosp L2
[2024-09-11] MEDS: Ceftriaxone 1 GM/50 ML BAG IV (09:25)
[2024-09-11] MEDS: 0.9% Saline Lock 10 ML Syringe IV (09:25)
[2024-09-11] MEDS: Acetaminophen 325 MG Tablet 650 MG GT (09:34)
[2024-09-11 12:39] LABS: Bedside Glucose 149 mg/dL (74-106)
[2024-09-11 12:50] VITALS: BMI 27.8
--- NOTE | 2024-09-11 12:50 | CASEMGMT ---
Addendum entered by Harmony Bhakta 09/11/24 14:03: Dtr provided choices: 1. [facility], 2. [facility], 3. [facility] placed referrals via [facility]. Original Note: Social Work IDT met with patient, and dtr at bedside, then another dtr via conference call for Team meeting. Discussed patient's progress in PT/OT/ST/SN. Confirmed Medicare approved with DC 09/21. Pt has progressed, but still requires extensive assist. IDT is recommending SNF stay for continued therapy prior to home. Family and pt in agreement. Preference is TCU. SW informed pt/family that currently TCU does not have a bed available, though, that can change by the , however, requested second choice. SW provided list of SNF providers including quality and resource data via [facility] Guide. Family to review and notify this worker of other options. SW will continue to follow for DC planning. Harmony Bhakta PATROL LADY PROTECTION ENGINEER
[2024-09-11 14:48] VITALS: BP 152/58; PULSE 83
[2024-09-11 16:08] LABS: Dopamine, 24Ur 152 ug/24 hr (0-510); Dopamine, UR 66 ug/L (Undefined); Epinephrine, 24Ur 9 ug/24 hr (0-20); Epinephrine, Ur 4 ug/L (Undefined); Norepinephrine, 24Ur 64 ug/24 hr (0-135); Norepinephrine, Ur 28 ug/L (Undefined)
[2024-09-11 16:56] LABS: Bedside Glucose 130 mg/dL (74-106)
[2024-09-11] MEDS: Insulin Lispro 100 UNIT/ML INSULN.PEN 18 UNIT SC (17:49)
[2024-09-11 18:00] VITALS: BP 130/63; PULSE 82; RESP 16; TEMP 36.4; O2SAT 97
[2024-09-11] MEDS: Gabapentin 400 MG Capsule PO (20:40)
[2024-09-11] MEDS: clonazePAM 0.5 MG Tablet PO (20:41)
[2024-09-11 20:42] VITALS: BP 130/63; PULSE 82
[2024-09-11] MEDS: Jevity 1.5. 1,000 ML Bottle 240 ML GT (20:46)
[2024-09-11] MEDS: MENTHOL 226.8 GM JAR 1 APPLIC TOPICAL (21:04)
[2024-09-11] MEDS: morphine (oral solution) 10MG/0.5ML Syringe 5 MG SL (21:30)
[2024-09-11] MEDS: Insulin Lispro 100 UNIT/ML INSULN.PEN 10 UNIT SC (21:56)
[2024-09-11 22:00] VITALS: RESP 16
--- NOTE | 2024-09-11 22:29 | NURSING ---
Patient stated she was feeling full and did not want all of her bolus. 130mL administered without issue. Will continue to monitor.
[2024-09-11 22:38] LABS: Bedside Glucose 228 mg/dL (74-106)
[2024-09-12 06:00] VITALS: BP 154/66; PULSE 81; RESP 16; TEMP 36.6; O2SAT 94; BMI 27.8
[2024-09-12] MEDS: Enoxaparin 40 MG/0.4 ML Syringe SC (06:49)
[2024-09-12 06:51] VITALS: BP 154/66; PULSE 81
[2024-09-12] MEDS: Metoprolol Tartrate 25 MG Tablet PO ×2 (06:51→13:41)
[2024-09-12 07:28] LABS: Bedside Glucose 137 mg/dL (74-106)
[2024-09-12] MEDS: Insulin Glargine-YFGN 100 UNIT/ML Pen 28 UNIT SC ×2 (08:05→17:52)
[2024-09-12] MEDS: Insulin Lispro 100 UNIT/ML INSULN.PEN 18 UNIT SC ×3 (08:06→17:52)
[2024-09-12] MEDS: Sertraline 50 MG Tablet 75 MG PO (09:19)
[2024-09-12] MEDS: Atorvastatin Calcium 40 MG Tablet GT (09:20)
[2024-09-12] MEDS: Aspirin 81 MG TAB.CHEW GT (09:20)
[2024-09-12] MEDS: Cholecalciferol (VIT D3) 25 MCG TABLET (1,000 UNITS) GT (09:20)
[2024-09-12] MEDS: Clopidogrel Bisulfate 75 MG Tablet GT (09:20)
[2024-09-12] MEDS: clonazePAM 0.5 MG Tablet 0.125 MG PO (09:20)
[2024-09-12] MEDS: Gabapentin 300 MG Capsule GT ×2 (09:21→13:42)
[2024-09-12] MEDS: Famotidine 20 MG Tablet 40 MG GT (09:21)
[2024-09-12] MEDS: Menthol/Lanolin/Calamine/Znox 113 GM Tube 1 APPLIC TOPICAL ×2 (09:37→21:46)
[2024-09-12] MEDS: Nystatin Powder 15gm Bottle 1 APPLIC TOPICAL ×2 (09:37→21:45)
[2024-09-12] MEDS: Ipratropium Bromide 0.06% NASAL SPRAY 2 SPRAY NASAL ×2 (09:37→21:47)
[2024-09-12] MEDS: Mupirocin Ointment 22gm Tube 1 APPLIC TOPICAL ×2 (09:38→21:47)
[2024-09-12] MEDS: 0.9% Saline Lock 10 ML Syringe IV ×2 (09:44→21:45)
[2024-09-12] MEDS: Ceftriaxone 1 GM/50 ML BAG IV (09:44)
[2024-09-12 10:08] LABS: Metanephrine, Ur 64 ug/L (Undefined); Metanephrines, 24Ur 147 ug/24 hr (36-209); Normetanephrines, 24Ur 421 ug/24 hr (131-612); Normetanephrines, Ur 183 ug/L (Undefined)
[2024-09-12 11:49] LABS: Bedside Glucose 144 mg/dL (74-106)
[2024-09-12 13:41] VITALS: BP 168/71; PULSE 77
[2024-09-12 14:14] VITALS: BMI 27.8
[2024-09-12 17:13] LABS: Bedside Glucose 98 mg/dL (74-106)
[2024-09-12 18:00] VITALS: BP 143/66; PULSE 71; RESP 16; TEMP 36.3; O2SAT 96
--- NOTE | 2024-09-12 18:44 | PCM.PROGNOTE ---
Subjective Subjective Afebrile Heart rate is within normal limits The blood pressure over the past 36 hours has ranged from 130/63 to 168/71. Diastolics are always at goal but systolics are frequently above goal. Maintaining appropriate oxygen saturation on room air. The blood sugar record was reviewed. The blood sugar drops FBS and prior to supper. Lantus dosing adjusted. No hypoglycemia. Eating 75 to 100% of her meals now. Good fluid intake. Denies nausea, bloating, lightheadedness. Sleeping well at night. Good appetite. Not anxious. No chest pain, no cough, no shortness of breath, no dysuria. Objective Data Objective Data Vital Signs: Vital Signs Temp Pulse Resp BP Pulse Ox O2 Del Method 97.9 F 77 16 168/71 H 94 Room Air 09/12/24 06:00 09/12/24 13:41 09/12/24 06:00 09/12/24 13:41 09/12/24 06:00 09/12/24 06:00 Oxygen Delivery Method Room Air Weight: 152 lb 5.431 oz Body Mass Index (BMI) 27.8 Intake & Output: Intake and Output for Last 24 Hours 09/10/24 09/11/24 09/12/24 23:59 23:59 23:59 Intake Total 1680 / 1680 1665 / 1665 1575 / 1575 Balance 1680 / 1680 1665 / 1665 1575 / 1575 Lab / Micro Data 09/08/24 05:41 09/08/24 05:41 Labs: Laboratory Results - last 24 hr 09/04/24 20:30: Urine Metanephrine 64, U Metanephrines 24 Hr 147, U Normetanephrine 183, U Normetanephrine 24h 421 09/11/24 21:52: POC Glucose 228 H 09/12/24 06:47: POC Glucose 137 H 09/12/24 11:32: POC Glucose 144 H 09/12/24 16:34: POC Glucose 98 Micro: Microbiology 09/08/24 08:30 Wound - Abdominal Gram Stain - Final 09/08/24 08:30 Wound - Abdominal Wound Culture - Final Serratia marcescens 09/08/24 10:55 Urine Catheter - Ugalde Urine Culture - Final Citrobacter freundii 08/29/24 15:53 Urine Catheter - Catheter Urine Culture - Final Yeast, not Shanna albicans Physical Exam Const alert, oriented x3 and no apparent distress General Appearance: cooperative Resp clear to auscultation bilaterally Resp Narrative: Able to speak in complete sentences. Effort and Inspection: Negative for tachypneic Cardio regular rate, regular rhythm and no gallops Cardio Narrative: No ectopy GI normal to inspection, nondistended, normoactive bowel sounds, soft to palpation and non-tender GI Narrative: Small amount of slough around the PEG site but no purulent discharge, no significant erythema and no pain with palpation around the area. Will continue Bactroban twice daily. No need for antibiotics at this time. 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 Continue therapy 2. Insulin was adjusted. Would like to see all blood sugars between 100-180. 3. The urine metanephrines and catecholamines are normal but, she was on Catapres and metoprolol when the collection was done. BP's are better controlled with alpha/beta blockade and control of anxiety. No bradycardia on clonidine. Continue to monitor BP's closely. would like to see the systolics < 140 consistently. Will increase the metoprolol from 25 mg 3 times daily to 50 mg twice daily. 4. Recheck a BMP, magnesium and HH on Sunday Charges/Coding Visit Charges Inpatient E&M: 35376 Subs Hosp L1
[2024-09-12 21:17] LABS: Bedside Glucose 77 mg/dL (74-106)
[2024-09-12] MEDS: Jevity 1.5. 1,000 ML Bottle 240 ML GT (21:19)
[2024-09-12] MEDS: morphine (oral solution) 10MG/0.5ML Syringe 5 MG SL (21:38)
[2024-09-12] MEDS: clonazePAM 0.5 MG Tablet PO (21:41)
[2024-09-12] MEDS: Gabapentin 400 MG Capsule PO (21:42)
[2024-09-12 21:46] VITALS: BP 156/66; PULSE 79
[2024-09-12] MEDS: Metoprolol Tartrate 50 MG Tablet PO (21:46)
[2024-09-12] MEDS: MENTHOL 226.8 GM JAR 1 APPLIC TOPICAL (21:55)
[2024-09-12 22:26] LABS: Bedside Glucose 90 mg/dL (74-106)
[2024-09-13] VITALS (8 sets, daily range): BP systolic 110–171; BP diastolic 47–63; PULSE 68–78; RESP 16; TEMP 36.1–36.9; O2SAT 96–100; BMI 28.0
[2024-09-13] MEDS: Enoxaparin 40 MG/0.4 ML Syringe SC (05:30)
[2024-09-13] MEDS: Insulin Glargine-YFGN 100 UNIT/ML Pen 24 UNIT SC ×2 (05:31→18:02)
[2024-09-13] MEDS: Metoprolol Tartrate 50 MG Tablet PO ×3 (05:34→20:54)
[2024-09-13] MEDS: hydrALAZINE 25 MG Tablet PO (05:39)
[2024-09-13] MEDS: Nystatin Powder 15gm Bottle 1 APPLIC TOPICAL ×2 (05:40→20:55)
[2024-09-13] MEDS: Menthol/Lanolin/Calamine/Znox 113 GM Tube 1 APPLIC TOPICAL ×2 (05:40→20:52)
[2024-09-13 07:32] LABS: Bedside Glucose 155 mg/dL (74-106)
[2024-09-13] MEDS: 0.9% Saline Lock 10 ML Syringe IV ×3 (07:36→20:59)
[2024-09-13] MEDS: Insulin Lispro 100 UNIT/ML INSULN.PEN SC (08:09)
[2024-09-13] MEDS: Insulin Lispro 100 UNIT/ML INSULN.PEN 18 UNIT SC ×2 (08:09→12:23)
[2024-09-13] MEDS: Aspirin 81 MG TAB.CHEW GT (08:11)
[2024-09-13] MEDS: Famotidine 20 MG Tablet 40 MG GT (08:11)
[2024-09-13] MEDS: Ipratropium Bromide 0.06% NASAL SPRAY 2 SPRAY NASAL ×2 (08:11→20:52)
[2024-09-13] MEDS: Cholecalciferol (VIT D3) 25 MCG TABLET (1,000 UNITS) GT (08:12)
[2024-09-13] MEDS: Atorvastatin Calcium 40 MG Tablet GT (08:12)
[2024-09-13] MEDS: Clopidogrel Bisulfate 75 MG Tablet GT (08:12)
[2024-09-13] MEDS: Docusate Sodium 100 MG/10 ML UDC GT (08:12)
[2024-09-13] MEDS: Sertraline 50 MG Tablet 75 MG PO (08:13)
[2024-09-13] MEDS: clonazePAM 0.5 MG Tablet 0.125 MG PO (08:19)
[2024-09-13] MEDS: Gabapentin 300 MG Capsule GT ×2 (08:19→13:31)
[2024-09-13] MEDS: Ceftriaxone 1 GM/50 ML BAG IV (10:08)
[2024-09-13] MEDS: Mupirocin Ointment 22gm Tube 1 APPLIC TOPICAL ×2 (10:13→20:52)
[2024-09-13 12:43] LABS: Bedside Glucose 143 mg/dL (74-106)
[2024-09-13 16:45] LABS: Bedside Glucose 134 mg/dL (74-106)
[2024-09-13] MEDS: Insulin Lispro 100 UNIT/ML INSULN.PEN 16 UNIT SC (18:02)
[2024-09-13] MEDS: clonazePAM 0.5 MG Tablet PO (20:51)
[2024-09-13] MEDS: Gabapentin 400 MG Capsule PO (20:52)
[2024-09-13] MEDS: Insulin Lispro 100 UNIT/ML INSULN.PEN 10 UNIT SC (20:53)
[2024-09-13] MEDS: Jevity 1.5. 1,000 ML Bottle 240 ML GT (20:54)
[2024-09-13] MEDS: MENTHOL 226.8 GM JAR 1 APPLIC TOPICAL (21:08)
[2024-09-13 22:55] LABS: Bedside Glucose 144 mg/dL (74-106)
[2024-09-14] VITALS (8 sets, daily range): BP systolic 119–141; BP diastolic 52–58; PULSE 65–72; RESP 16–18; TEMP 36.4–36.7; O2SAT 95–96; BMI 28.0; BMI 27.6
[2024-09-14] MEDS: Insulin Glargine-YFGN 100 UNIT/ML Pen 24 UNIT SC ×2 (06:09→17:23)
[2024-09-14] MEDS: Enoxaparin 40 MG/0.4 ML Syringe SC (06:11)
[2024-09-14] MEDS: Metoprolol Tartrate 50 MG Tablet PO ×3 (06:11→20:41)
[2024-09-14 07:19] LABS: Bedside Glucose 103 mg/dL (74-106)
[2024-09-14] MEDS: clonazePAM 0.5 MG Tablet 0.125 MG PO (08:28)
[2024-09-14] MEDS: Gabapentin 300 MG Capsule GT ×2 (08:29→14:59)
[2024-09-14] MEDS: Aspirin 81 MG TAB.CHEW GT (08:29)
[2024-09-14] MEDS: Insulin Lispro 100 UNIT/ML INSULN.PEN 16 UNIT SC ×3 (08:31→17:24)
[2024-09-14] MEDS: Ipratropium Bromide 0.06% NASAL SPRAY 2 SPRAY NASAL ×2 (10:18→20:36)
[2024-09-14] MEDS: Ceftriaxone 1 GM/50 ML BAG IV (10:19)
[2024-09-14] MEDS: Mupirocin Ointment 22gm Tube 1 APPLIC TOPICAL ×2 (10:19→20:36)
[2024-09-14] MEDS: Atorvastatin Calcium 40 MG Tablet GT (10:20)
[2024-09-14] MEDS: Cholecalciferol (VIT D3) 25 MCG TABLET (1,000 UNITS) GT (10:21)
[2024-09-14] MEDS: Famotidine 20 MG Tablet 40 MG GT (10:21)
[2024-09-14] MEDS: Clopidogrel Bisulfate 75 MG Tablet GT (10:21)
[2024-09-14] MEDS: Sertraline 50 MG Tablet 75 MG PO (10:22)
[2024-09-14] MEDS: Nystatin Powder 15gm Bottle 1 APPLIC TOPICAL ×2 (10:35→20:38)
[2024-09-14] MEDS: Menthol/Lanolin/Calamine/Znox 113 GM Tube 1 APPLIC TOPICAL ×2 (10:35→20:37)
[2024-09-14 12:00] LABS: Bedside Glucose 221 mg/dL (74-106)
[2024-09-14] MEDS: Insulin Lispro 100 UNIT/ML INSULN.PEN SC (12:30)
[2024-09-14 17:10] LABS: Bedside Glucose 102 mg/dL (74-106)
[2024-09-14] MEDS: clonazePAM 0.5 MG Tablet PO (20:35)
[2024-09-14] MEDS: Gabapentin 400 MG Capsule PO (20:35)
[2024-09-14] MEDS: Jevity 1.5. 1,000 ML Bottle 240 ML GT (20:44)
[2024-09-14] MEDS: 0.9% Saline Lock 10 ML Syringe IV (21:20)
[2024-09-14 21:59] LABS: Bedside Glucose 92 mg/dL (74-106)
[2024-09-14] MEDS: Insulin Lispro 100 UNIT/ML INSULN.PEN 10 UNIT SC (23:11)
[2024-09-14 23:27] LABS: Bedside Glucose 203 mg/dL (74-106)
[2024-09-15] VITALS (8 sets, daily range): BP systolic 115–145; BP diastolic 51–68; PULSE 60–73; RESP 16–17; TEMP 36.3; O2SAT 96–97; BMI 27.6; BMI 27.1
[2024-09-15 05:49] LABS: Hematocrit 35.7 % (37-47)
[2024-09-15] MEDS: Metoprolol Tartrate 50 MG Tablet PO ×3 (06:46→21:03)
[2024-09-15] MEDS: Insulin Glargine-YFGN 100 UNIT/ML Pen 24 UNIT SC ×2 (06:47→17:19)
[2024-09-15] MEDS: Enoxaparin 40 MG/0.4 ML Syringe SC (06:47)
[2024-09-15 07:03] LABS: Bedside Glucose 123 mg/dL (74-106)
[2024-09-15] MEDS: Insulin Lispro 100 UNIT/ML INSULN.PEN 16 UNIT SC (08:29)
--- NOTE | 2024-09-15 08:35 | CASEMGMT ---
Social Work TCU will have a bed available for pt's DC 09/21 - can accept. SW updated pt and dtr. Both very appreciative. Harmony Bhakta LOCAL ANNOUNCER POSTING MACHINE OPERATOR
[2024-09-15] MEDS: Famotidine 20 MG Tablet 40 MG GT (09:11)
[2024-09-15] MEDS: Cholecalciferol (VIT D3) 25 MCG TABLET (1,000 UNITS) GT (09:11)
[2024-09-15] MEDS: Atorvastatin Calcium 40 MG Tablet GT (09:11)
[2024-09-15] MEDS: Mupirocin Ointment 22gm Tube 1 APPLIC TOPICAL ×2 (09:11→20:38)
[2024-09-15] MEDS: Sertraline 50 MG Tablet 75 MG PO (09:11)
[2024-09-15] MEDS: Aspirin 81 MG TAB.CHEW GT (09:11)
[2024-09-15] MEDS: Clopidogrel Bisulfate 75 MG Tablet GT (09:11)
[2024-09-15] MEDS: Menthol/Lanolin/Calamine/Znox 113 GM Tube 1 APPLIC TOPICAL ×2 (09:12→20:51)
[2024-09-15] MEDS: Ipratropium Bromide 0.06% NASAL SPRAY 2 SPRAY NASAL (09:12)
[2024-09-15] MEDS: Nystatin Powder 15gm Bottle 1 APPLIC TOPICAL ×2 (09:13→20:51)
[2024-09-15] MEDS: clonazePAM 0.5 MG Tablet 0.125 MG PO (09:16)
[2024-09-15] MEDS: Gabapentin 300 MG Capsule GT ×2 (09:16→14:09)
[2024-09-15] MEDS: Ceftriaxone 1 GM/50 ML BAG IV (09:17)
--- NOTE | 2024-09-15 09:20 | PCM.PROGNOTE ---
Subjective Subjective Afebrile VSS -blood pressure over the past 48 hours has ranged from 119/52 to 141/52. It is well-controlled. Heart rate is within normal limits. Maintaining appropriate oxygen saturation on RA Oral intake - FOOD good FLUIDS good blood sugar record was reviewed. Had 4 bowel movements yesterday and bowel movements are very loose. Discussed with nursing - no problems that need addressed Reviewed the THERAPY notes Medication list reviewed. All lab from this morning was personally reviewed. Hemoglobin is stable at 12. Sodium is 140 and the potassium is 4.2. The BUN is 15 with a creatinine of 0.8. Magnesium is 1.9. Danica complains that she has mild dysuria. She denies vaginal itching or discharge. She remains incontinent of both stool and urine. She tells me she is sleeping well at night and her appetite is good. She feels that she is getting stronger. On Sunday morning she felt very fatigued and when she went to get out of bed her feet felt funny. She was worried that she was having another stroke. She went back to bed and slept and when she awoke she was fine. Is suspect she was just tired and needed to sleep. She had no new focal neurologic deficits. Her only real complaint today is the loose stool. Has not been taking the Colace syrup. I suspect the loose stool may be related to the TF at HS......or to the Sertraline. Denies N/V/abd pain. Objective Data Objective Data Vital Signs: Vital Signs Temp Pulse Resp BP Pulse Ox O2 Del Method 97.4 F L 66 16 125/60 H 96 Room Air 09/15/24 06:00 09/15/24 06:46 09/15/24 06:00 09/15/24 06:46 09/15/24 06:00 09/15/24 06:00 Oxygen Delivery Method Room Air Weight: 148 lb 1.6 oz Body Mass Index (BMI) 27.1 Intake & Output: Intake and Output for Last 24 Hours 09/13/24 09/14/24 09/15/24 23:59 23:59 23:59 Intake Total 2505 / 2705 2555 / 2555 150 / 150 Balance 2505 / 2705 2555 / 2555 150 / 150 Lab / Micro Data 09/15/24 05:35 09/15/24 05:35 Labs: Laboratory Results - last 24 hr 09/14/24 11:37: POC Glucose 221 H 09/14/24 16:48: POC Glucose 102 09/14/24 20:43: POC Glucose 92 09/14/24 23:05: POC Glucose 203 H 09/15/24 05:35: Hgb 12.0, Hct 35.7 L 09/15/24 06:42: POC Glucose 123 H Micro: Microbiology 09/08/24 08:30 Wound - Abdominal Gram Stain - Final 09/08/24 08:30 Wound - Abdominal Wound Culture - Final Serratia marcescens 09/08/24 10:55 Urine Catheter - Ugalde Urine Culture - Final Citrobacter freundii 08/29/24 15:53 Urine Catheter - Catheter Urine Culture - Final Yeast, not Shanna albicans Physical Exam Const alert, oriented x3 and no apparent distress Constitutional Narrative: Speech is much more fluent. No dysarthria. Rare problem with word finding. General Appearance: cooperative HEENT Mouth: dry mucous membranes Resp clear to auscultation bilaterally Resp Narrative: Able to speak in complete sentences. Effort and Inspection: Negative for tachypneic Cardio regular rate, regular rhythm and no gallops Cardio Narrative: No ectopy GI normal to inspection, nondistended, normoactive bowel sounds, soft to palpation and non-tender GI Narrative: Small amount of slough around the PEG site but no purulent discharge, no significant erythema and no pain with palpation around the area. Extremity no calf tenderness General Extremity: Negative for edema Skin Rashes: no rashes Psych Psych Narrative: Sleeping well at night. Good appetite. CAlm and making good eye contact. does not appear anxious or depressed. Pleasant and cooperative. Interacting well with staff. Engaged. 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 Continue therapy 2. Adjustments were made to the insulin regimen. 3. DC the tube feed at bedtime. 4. DC docusate 5. Imodium 2 mg every 4 hours as needed diarrhea 6. DC alprazolam 7. If diarrhea continues despite discontinuation of Jevity 1.5 and discontinuation of docusate we will need to back off the sertraline. 8. I suspect the dysuria is due to vaginal candidiasis. Will prescribe Diflucan 100 mg daily x 3 doses. I would prefer using Monistat but she lists miconazole as an allergy causing rash/blisters. 9. Finish a total of 7 days Rocephin. Charges/Coding Visit Charges Inpatient E&M: 68160 [facility] Hosp L1
[2024-09-15] MEDS: 0.9% Saline Lock 10 ML Syringe IV ×2 (09:27→22:58)
[2024-09-15 11:01] LABS: Anion Gap 8 (5-15); BUN 15 mg/dL (7-18); BUN/Creat Ratio 18.8 RATIO (10-20); Calcium,Total 9.1 mg/dL (8.5-10.1); Chloride 106 mmol/L (98-107); EST Glomerular Filtration Rate 73 mL/min (>60); Est Glom Filt Rate - Afr Amer 88 mL/min (>60); Estimated Creatinine Clearance 48.73 ml/min; Glucose 119 mg/dL (74-106); Magnesium 1.9 mg/dL (1.6-2.6); Potassium 4.2 mmol/L (3.5-5.1); Sodium Level 140 mmol/L (136-145)
[2024-09-15] MEDS: Insulin Lispro 100 UNIT/ML INSULN.PEN 14 UNIT SC (11:58)
[2024-09-15] MEDS: Insulin Lispro 100 UNIT/ML INSULN.PEN SC (11:58)
[2024-09-15 12:43] LABS: Bedside Glucose 185 mg/dL (74-106)
[2024-09-15 17:57] LABS: Bedside Glucose 105 mg/dL (74-106)
[2024-09-15] MEDS: Insulin Lispro 100 UNIT/ML INSULN.PEN 10 UNIT SC (18:16)
[2024-09-15] MEDS: Fluconazole 100 MG Tablet PO (18:17)
[2024-09-15] MEDS: Gabapentin 400 MG Capsule PO (20:38)
[2024-09-15] MEDS: clonazePAM 0.5 MG Tablet PO (20:38)
[2024-09-15] MEDS: MENTHOL 226.8 GM JAR 1 APPLIC TOPICAL (20:38)
[2024-09-15] MEDS: Glucerna Shake 120 ML LIQUID PO (20:51)
--- NOTE | 2024-09-15 22:28 | NURSING ---
Pt c/o pain in right thigh down leg, states she has had this before and requesting Roxanol. Order was discontinued, hospitalist notified of c/o and pt refusing to try Tylenol. New order for Toradol x1 and give with Tylenol from Dr. Sprague. Will medicate
--- NOTE | 2024-09-15 22:29 | PCM.HOSP.N ---
Hospitalist Note Patient with chronic BL LE pain, on gabapentin. She had been taking narcotics which have been discontinued, suspect secondary to sedative nature/bowel side effects and preparation for home transition. Refusing tylenol. Will use blue gel as needed, encouraged tylenol and will dose x 1 given current asa/plavix medications with toradol 15 mg x 1.
[2024-09-15] MEDS: Acetaminophen 325 MG Tablet 650 MG GT (22:57)
[2024-09-15] MEDS: Ketorolac 15 MG/ML Vial IV (22:58)
[2024-09-15 23:25] LABS: Bedside Glucose 185 mg/dL (74-106)
[2024-09-16] VITALS (8 sets, daily range): BP systolic 108–147; BP diastolic 46–61; PULSE 61–89; RESP 15–17; TEMP 36.6; O2SAT 98–99; BMI 27.5
[2024-09-16] MEDS: Enoxaparin 40 MG/0.4 ML Syringe SC (06:10)
[2024-09-16] MEDS: Insulin Glargine-YFGN 100 UNIT/ML Pen 24 UNIT SC ×2 (06:10→17:24)
[2024-09-16] MEDS: Metoprolol Tartrate 50 MG Tablet PO ×3 (06:11→20:26)
[2024-09-16 07:32] LABS: Bedside Glucose 130 mg/dL (74-106)
[2024-09-16] MEDS: Insulin Lispro 100 UNIT/ML INSULN.PEN 20 UNIT SC (08:54)
[2024-09-16] MEDS: Fluconazole 100 MG Tablet 50 MG PO (08:55)
[2024-09-16] MEDS: Clopidogrel Bisulfate 75 MG Tablet GT (08:55)
[2024-09-16] MEDS: clonazePAM 0.5 MG Tablet 0.125 MG PO (08:55)
[2024-09-16] MEDS: Gabapentin 300 MG Capsule GT ×2 (08:55→15:22)
[2024-09-16] MEDS: Cholecalciferol (VIT D3) 25 MCG TABLET (1,000 UNITS) GT (08:55)
[2024-09-16] MEDS: Aspirin 81 MG TAB.CHEW GT (08:56)
[2024-09-16] MEDS: Ceftriaxone 1 GM/50 ML BAG IV (08:56)
[2024-09-16] MEDS: Atorvastatin Calcium 40 MG Tablet GT (08:56)
[2024-09-16] MEDS: 0.9% Saline Lock 10 ML Syringe IV ×2 (08:56→20:29)
[2024-09-16] MEDS: Sertraline 50 MG Tablet 75 MG PO (08:56)
[2024-09-16] MEDS: Famotidine 20 MG Tablet 40 MG GT (08:56)
[2024-09-16] MEDS: Menthol/Lanolin/Calamine/Znox 113 GM Tube 1 APPLIC TOPICAL ×2 (08:57→20:24)
[2024-09-16] MEDS: Ipratropium Bromide 0.06% NASAL SPRAY 2 SPRAY NASAL ×2 (09:05→20:23)
[2024-09-16] MEDS: Mupirocin Ointment 22gm Tube 1 APPLIC TOPICAL ×2 (09:05→20:24)
[2024-09-16] MEDS: Nystatin Powder 15gm Bottle 1 APPLIC TOPICAL ×2 (09:05→20:25)
[2024-09-16] MEDS: Insulin Lispro 100 UNIT/ML INSULN.PEN 14 UNIT SC ×2 (12:02→17:23)
[2024-09-16] MEDS: Insulin Lispro 100 UNIT/ML INSULN.PEN SC ×2 (12:02→17:26)
[2024-09-16 12:32] LABS: Bedside Glucose 243 mg/dL (74-106)
--- NOTE | 2024-09-16 14:26 | PN_ITS ---
Subjective Subjective Afebrile VSS -systolic blood pressure is at times mildly elevated and at other times is within goal. Diastolics are always within goal. Heart rate is ranging from 61- 72. Maintaining appropriate oxygen saturation on RA Oral intake - FOOD good FLUIDS good Weight is stable The blood sugar record was reviewed. Blood sugars are fairly well-controlled. No hypoglycemia. The lunchtime blood sugar was 243, up from 130 fasting? This is an outlier. Discussed with nursing - no problems that need addressed Reviewed the THERAPY notes Medication list reviewed. Denies headache, lightheadedness, chest pain, shortness of breath, palpitations, nausea/vomiting/abdominal pain, dysuria and calf tenderness Objective Data Objective Data Vital Signs: Vital Signs Temp Pulse Resp BP Pulse Ox O2 Del Method 97.8 F 61 15 108/48 L 98 Room Air 09/16/24 06:05 09/16/24 10:00 09/16/24 06:05 09/16/24 10:00 09/16/24 06:05 09/16/24 06:05 Oxygen Delivery Method Room Air Weight: 150 lb 9.211 oz Body Mass Index (BMI) 27.5 Intake & Output: Intake and Output for Last 24 Hours 09/14/24 09/15/24 09/16/24 23:59 23:59 23:59 Intake Total 2555 / 2555 2069 / 2069 945 / 945 Balance 2555 / 2555 2069 / 2069 945 / 945 Lab / Micro Data 09/15/24 05:35 09/15/24 05:35 Labs: Laboratory Results - last 24 hr 09/15/24 17:18: POC Glucose 105 09/15/24 21:00: POC Glucose 185 H 09/16/24 06:09: POC Glucose 130 H 09/16/24 12:01: POC Glucose 243 H Micro: Microbiology 09/08/24 08:30 Wound - Abdominal Gram Stain - Final 09/08/24 08:30 Wound - Abdominal Wound Culture - Final Serratia marcescens 09/08/24 10:55 Urine Catheter - Ugalde Urine Culture - Final Citrobacter freundii 08/29/24 15:53 Urine Catheter - Catheter Urine Culture - Final Yeast, not Shanna albicans Physical Exam Const alert, oriented x3 and no apparent distress Resp clear to auscultation bilaterally Effort and Inspection: Negative for tachypneic or respiratory distress GI normal to inspection, nondistended, normoactive bowel sounds, soft to palpation and non-tender Extremity no calf tenderness General Extremity: Negative for edema Psych affect normal Psych Narrative: She is calm and not anxious. Sleeping well at night. Good appetite. Pleasant. Making good eye contact and she is engaged. Assessment & Plan Assessment/Plan (1) Debility: (2) CVA (cerebral vascular accident): QUALIFIERS: CVA mechanism: unspecified Qualified Code(s): I63.9 - Cerebral infarction, unspecified (3) Dysphagia: QUALIFIERS: Dysphagia type: unspecified Qualified Code(s): R13.10 - Dysphagia, unspecified (4) Right hemiparesis: (5) Facial droop: (6) Paresthesia of right upper and lower extremity: (7) Mild cognitive impairment: PLAN: This is chronic.....it was exacerbated by recent ischemic strokes. (8) Generalized muscle weakness: (9) Essential (primary) hypertension: (10) Diabetes 1.5, managed as type 1: (11) Hyperlipidemia: QUALIFIERS: Hyperlipidemia type: mixed hyperlipidemia Qualified Code(s): E78.2 - Mixed hyperlipidemia (12) Anxiety and depression: (13) Polyneuropathy: (14) Acute cystitis with positive culture: (15) Vaginal candidiasis: (16) Fecal incontinence: QUALIFIERS: Fecal incontinence type: full incontinence of feces Q ualified Code(s): R15.9 - Full incontinence of feces PLAN: there are 3-4 BM's recorded a day but, she is not having diarrhea. She is incontinent of both urine and stool. Every time nursing changes a wet attends there is a smear of stool which is counted as a bowel movement. (17) Urinary incontinence: QUALIFIERS: Urinary Incontinence type: urinary incontinence without sensory awareness Qualified Code(s): N39.42 - Incontinence without sensory awareness PLAN: Due to CVA. PLAN: Plan 1. Continue therapy Charges/Coding Visit Charges Inpatient E&M: 16359 [facility] Hosp L1
[2024-09-16] MEDS: Glucerna Shake 120 ML LIQUID PO ×2 (15:22→20:36)
[2024-09-16 17:37] LABS: Bedside Glucose 177 mg/dL (74-106)
[2024-09-16] MEDS: clonazePAM 0.5 MG Tablet PO (20:23)
[2024-09-16] MEDS: Gabapentin 400 MG Capsule PO (20:23)
[2024-09-16] MEDS: MENTHOL 226.8 GM JAR 1 APPLIC TOPICAL (20:29)
[2024-09-16] MEDS: Acetaminophen 325 MG Tablet 650 MG GT (20:33)
[2024-09-16 21:59] LABS: Bedside Glucose 153 mg/dL (74-106)
[2024-09-17] VITALS (8 sets, daily range): BP systolic 112–136; BP diastolic 40–85; PULSE 65–70; RESP 16–18; TEMP 36.4–36.6; O2SAT 94–97; BMI 27.7
[2024-09-17] MEDS: Enoxaparin 40 MG/0.4 ML Syringe SC (06:02)
[2024-09-17] MEDS: Metoprolol Tartrate 50 MG Tablet PO ×3 (06:03→21:00)
[2024-09-17] MEDS: Insulin Glargine-YFGN 100 UNIT/ML Pen 24 UNIT SC ×2 (06:06→16:47)
[2024-09-17] MEDS: Acetaminophen 325 MG Tablet 650 MG GT (06:11)
[2024-09-17 06:27] LABS: Bedside Glucose 113 mg/dL (74-106)
[2024-09-17] MEDS: 0.9% Saline Lock 10 ML Syringe IV ×2 (08:12→10:00)
[2024-09-17] MEDS: Menthol/Lanolin/Calamine/Znox 113 GM Tube 1 APPLIC TOPICAL ×2 (08:12→21:33)
[2024-09-17] MEDS: Nystatin Powder 15gm Bottle 1 APPLIC TOPICAL ×2 (08:12→21:33)
[2024-09-17] MEDS: Gabapentin 300 MG Capsule GT ×2 (08:18→14:01)
[2024-09-17] MEDS: clonazePAM 0.5 MG Tablet 0.125 MG PO (08:18)
[2024-09-17] MEDS: Mupirocin Ointment 22gm Tube 1 APPLIC TOPICAL ×2 (08:19→20:56)
[2024-09-17] MEDS: Sertraline 50 MG Tablet 75 MG PO (08:19)
[2024-09-17] MEDS: Famotidine 20 MG Tablet 40 MG GT (08:20)
[2024-09-17] MEDS: Clopidogrel Bisulfate 75 MG Tablet GT (08:20)
[2024-09-17] MEDS: Insulin Lispro 100 UNIT/ML INSULN.PEN 20 UNIT SC (08:20)
[2024-09-17] MEDS: Ipratropium Bromide 0.06% NASAL SPRAY 2 SPRAY NASAL ×2 (08:20→20:56)
[2024-09-17] MEDS: Fluconazole 100 MG Tablet 50 MG PO (08:21)
[2024-09-17] MEDS: Aspirin 81 MG TAB.CHEW GT (08:21)
[2024-09-17] MEDS: Atorvastatin Calcium 40 MG Tablet GT (08:22)
[2024-09-17] MEDS: Cholecalciferol (VIT D3) 25 MCG TABLET (1,000 UNITS) GT (08:22)
[2024-09-17] MEDS: Loperamide 2 MG Capsule PO (09:59)
[2024-09-17] MEDS: cloNIDine HCl 0.2 MG Patch TD (09:59)
[2024-09-17] MEDS: Ceftriaxone 1 GM/50 ML BAG IV (10:00)
[2024-09-17] MEDS: Insulin Lispro 100 UNIT/ML INSULN.PEN 14 UNIT SC ×2 (12:00→18:38)
[2024-09-17 12:07] LABS: Bedside Glucose 134 mg/dL (74-106)
[2024-09-17] MEDS: Glucerna Shake 120 ML LIQUID PO ×2 (14:34→21:01)
[2024-09-17 17:11] LABS: Bedside Glucose 98 mg/dL (74-106)
[2024-09-17 18:53] LABS: Bedside Glucose 117 mg/dL (74-106)
[2024-09-17] MEDS: Gabapentin 400 MG Capsule PO (20:55)
[2024-09-17] MEDS: clonazePAM 0.5 MG Tablet PO (20:55)
[2024-09-17] MEDS: MENTHOL 226.8 GM JAR 1 APPLIC TOPICAL (21:10)
[2024-09-17 22:07] LABS: Bedside Glucose 110 mg/dL (74-106)
[2024-09-18] VITALS (8 sets, daily range): BP systolic 122–165; BP diastolic 50–70; PULSE 65–77; RESP 16–65; TEMP 36.2–36.6; O2SAT 95–97; BMI 27.6
[2024-09-18] MEDS: Enoxaparin 40 MG/0.4 ML Syringe SC (05:50)
[2024-09-18] MEDS: Metoprolol Tartrate 50 MG Tablet PO ×3 (05:51→21:11)
[2024-09-18] MEDS: Insulin Glargine-YFGN 100 UNIT/ML Pen 24 UNIT SC ×2 (05:57→17:27)
[2024-09-18 07:07] LABS: Bedside Glucose 168 mg/dL (74-106)
[2024-09-18] MEDS: Insulin Lispro 100 UNIT/ML INSULN.PEN 20 UNIT SC (08:21)
[2024-09-18] MEDS: Gabapentin 300 MG Capsule GT ×2 (08:22→14:24)
[2024-09-18] MEDS: Aspirin 81 MG TAB.CHEW GT (08:22)
[2024-09-18] MEDS: Clopidogrel Bisulfate 75 MG Tablet GT (08:22)
[2024-09-18] MEDS: Cholecalciferol (VIT D3) 25 MCG TABLET (1,000 UNITS) GT (08:22)
[2024-09-18] MEDS: Insulin Lispro 100 UNIT/ML INSULN.PEN SC ×2 (08:22→12:11)
[2024-09-18] MEDS: Sertraline 50 MG Tablet 75 MG PO (08:22)
[2024-09-18] MEDS: Ipratropium Bromide 0.06% NASAL SPRAY 2 SPRAY NASAL ×2 (08:23→21:10)
[2024-09-18] MEDS: Famotidine 20 MG Tablet 40 MG GT (08:23)
[2024-09-18] MEDS: Atorvastatin Calcium 40 MG Tablet GT (08:23)
[2024-09-18] MEDS: Menthol/Lanolin/Calamine/Znox 113 GM Tube 1 APPLIC TOPICAL ×2 (08:24→21:18)
[2024-09-18] MEDS: Mupirocin Ointment 22gm Tube 1 APPLIC TOPICAL ×2 (08:24→21:10)
[2024-09-18] MEDS: Nystatin Powder 15gm Bottle 1 APPLIC TOPICAL ×2 (08:24→21:18)
[2024-09-18] MEDS: clonazePAM 0.5 MG Tablet 0.125 MG PO (08:27)
[2024-09-18] MEDS: 0.9% Saline Lock 10 ML Syringe IV (08:40)
--- NOTE | 2024-09-18 10:31 | PN_ITS ---
Subjective Subjective Danica was seen on team rounds today. Her was present in the room and her daughter participated by phone. Afebrile VSS -blood pressure over the past 24 hours has ranged from 112/42 131/56. She denies lightheadedness. Heart rate is within normal limits. Maintaining appropriate oxygen saturation on RA Oral intake - FOOD good FLUIDS good The blood sugar record was reviewed. Blood sugars are well-controlled with no hypoglycemia. Discussed with nursing - no problems that need addressed Reviewed the THERAPY notes Medication list reviewed. Danica tells me the pain in her right thigh is better since she is up more and in the chair and spending less time in bed. She denies headache, lightheadedness, nausea/vomiting, abdominal pain, chest pain, shortness of breath. Denies burning with urination........ I suspect she had vaginal candidiasis and the Monistat is helping. Objective Data Objective Data Vital Signs: Vital Signs Temp Pulse Resp BP Pulse Ox O2 Del Method 97.9 F 69 16 131/56 H 97 Room Air 09/18/24 05:33 09/18/24 05:51 09/18/24 05:33 09/18/24 05:51 09/18/24 05:33 09/18/24 05:33 Oxygen Delivery Method Room Air Weight: 151 lb 3.794 oz Body Mass Index (BMI) 27.6 Intake & Output: Intake and Output for Last 24 Hours 09/16/24 09/17/24 09/18/24 23:59 23:59 23:59 Intake Total 2365 / 2365 1700 / 1700 150 / 150 Balance 2365 / 2365 1700 / 1700 150 / 150 Lab / Micro Data 09/15/24 05:35 09/15/24 05:35 Labs: Laboratory Results - last 24 hr 09/17/24 11:46: POC Glucose 134 H 09/17/24 16:46: POC Glucose 98 09/17/24 18:36: POC Glucose 117 H 09/17/24 21:29: POC Glucose 110 H 09/18/24 05:49: POC Glucose 168 H Micro: Microbiology 09/08/24 08:30 Wound - Abdominal Gram Stain - Final 09/08/24 08:30 Wound - Abdominal Wound Culture - Final Serratia marcescens 09/08/24 10:55 Urine Catheter - Ugalde Urine Culture - Final Citrobacter freundii 08/29/24 15:53 Urine Catheter - Catheter Urine Culture - Final Yeast, not Shanna albicans Physical Exam Const alert, oriented x3 and no apparent distress Resp clear to auscultation bilaterally Effort and Inspection: Negative for tachypneic or respiratory distress GI normal to inspection, nondistended, normoactive bowel sounds, soft to palpation and non-tender Extremity no calf tenderness General Extremity: Negative for edema Psych affect normal Psych Narrative: She is calm and not anxious. Sleeping well at night. Good appetite. Pleasant. Making good eye contact and she is engaged. 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 Continue therapy 2. No changes to the drug regimen today 3. All questions from family were answered to their satisfaction 4. Plan discharge to TCU on Sunday for additional therapy prior to returning home. Charges/Coding Visit Charges Inpatient E&M: 89298 Subs Hosp L2
[2024-09-18] MEDS: Insulin Lispro 100 UNIT/ML INSULN.PEN 14 UNIT SC ×2 (12:10→17:27)
[2024-09-18 12:20] LABS: Bedside Glucose 195 mg/dL (74-106)
--- NOTE | 2024-09-18 12:55 | CASEMGMT ---
Social Work IDT met with patient and at bedside and dtr via conference call for Team meeting. Discussed patient's progress in PT/OT/ST/SN. Confirmed Medicare DC date of 09/21 and pt discharging to TCU for skilled therapy. No other needs noted. Plan: DC 09/21 to TCU, skilled Harmony Bhakta [employer]
[2024-09-18] MEDS: Glucerna Shake 120 ML LIQUID PO ×2 (14:24→21:08)
[2024-09-18 17:11] LABS: Bedside Glucose 129 mg/dL (74-106)
[2024-09-18] MEDS: Gabapentin 400 MG Capsule PO (21:08)
[2024-09-18] MEDS: MENTHOL 226.8 GM JAR 1 APPLIC TOPICAL (21:09)
[2024-09-18 21:18] LABS: Bedside Glucose 152 mg/dL (74-106)
[2024-09-18] MEDS: clonazePAM 0.5 MG Tablet PO (21:19)
[2024-09-19] VITALS (7 sets, daily range): BP systolic 123–142; BP diastolic 47–62; PULSE 65–77; RESP 15–17; TEMP 36.4–36.7; O2SAT 95; BMI 27.6; BMI 28.2
[2024-09-19] MEDS: Insulin Glargine-YFGN 100 UNIT/ML Pen 24 UNIT SC ×2 (06:09→17:11)
[2024-09-19] MEDS: Enoxaparin 40 MG/0.4 ML Syringe SC (06:09)
[2024-09-19] MEDS: Metoprolol Tartrate 50 MG Tablet PO ×3 (06:17→22:14)
[2024-09-19 06:32] LABS: Bedside Glucose 161 mg/dL (74-106)
[2024-09-19] MEDS: Insulin Lispro 100 UNIT/ML INSULN.PEN SC ×2 (08:07→11:52)
[2024-09-19] MEDS: Insulin Lispro 100 UNIT/ML INSULN.PEN 20 UNIT SC (08:07)
[2024-09-19] MEDS: Sertraline 50 MG Tablet 75 MG PO (08:08)
[2024-09-19] MEDS: Famotidine 20 MG Tablet 40 MG GT (08:08)
[2024-09-19] MEDS: Atorvastatin Calcium 40 MG Tablet GT (08:08)
[2024-09-19] MEDS: Ipratropium Bromide 0.06% NASAL SPRAY 2 SPRAY NASAL ×2 (08:08→22:13)
[2024-09-19] MEDS: Cholecalciferol (VIT D3) 25 MCG TABLET (1,000 UNITS) GT (08:08)
[2024-09-19] MEDS: Mupirocin Ointment 22gm Tube 1 APPLIC TOPICAL ×2 (08:09→22:13)
[2024-09-19] MEDS: Aspirin 81 MG TAB.CHEW GT (08:09)
[2024-09-19] MEDS: Gabapentin 300 MG Capsule GT ×2 (08:14→14:37)
[2024-09-19] MEDS: clonazePAM 0.5 MG Tablet 0.125 MG PO (08:16)
[2024-09-19] MEDS: Nystatin Powder 15gm Bottle 1 APPLIC TOPICAL ×2 (08:24→22:14)
[2024-09-19] MEDS: Menthol/Lanolin/Calamine/Znox 113 GM Tube 1 APPLIC TOPICAL ×2 (08:24→22:13)
--- NOTE | 2024-09-19 08:38 | PCM.TXEXTCAR ---
Diet Diet Order/Speech Therapy: 09/05/24 14:54 Diet: Consistent Carb - Calorie Controlled Food consistency:: Pureed Liquid Consistency:: Pudding/Extremely Thick Diet Comments: Liquids- pudding all purees need to be pudding thick How many daily calories?: 1600 calorie She is on a Garcia water protocol. Good fluid intake. Tube Feed: Using the PEG only for medications. Routine Orders/Code Status Enema Type: Fleetz Enema Frequency: Daily PRN Suppository Type: Dulcolax 10mg Suppository Frequency: Daily PRN DC O2, CPAP, BIPAP needs Home O2 Discharge instructions: No Wound(s) Peg Site: Wound Type: Surgical Incision Left forearm infiltrated IV site: Wound Type: infiltrated IV site swelling rectal area: Wound Type: fissure Suggestions for Active Care Positions to Avoid: She needs to be in the chair with meals. Tends to want to lay in bed Times a day to sit in chair: 3 Therapies Weight Bearing: Full weight bearing Problem/Diagnosis (1) Debility: Status: Acute Code(s): R53.81 - Other malaise (2) CVA (cerebral vascular accident): Status: Acute Code(s): I63.9 - Cerebral infarction, unspecified Plan: 08/06/24 and 08/25/24 - ischemic with persistent residual deficits. Plan DC to SNF/TCU on 09/21/24 for additional therapy prior to returning home. (3) Dysphagia: Status: Chronic Code(s): R13.10 - Dysphagia, unspecified (4) Right hemiparesis: Status: Chronic Code(s): G81.91 - Hemiplegia, unspecified affecting right dominant side (5) Facial droop: Status: Chronic Code(s): R29.810 - Facial weakness Plan: Much improved since admission to rehab. continue ST. (6) Paresthesia of right upper and lower extremity: Status: Chronic Code(s): R20.2 - Paresthesia of skin (7) Mild cognitive impairment: Status: Chronic Code(s): G31.84 - Mild cognitive impairment of uncertain or unknown etiology Plan: This is chronic.....it was exacerbated by recent ischemic strokes. (8) Generalized muscle weakness: Status: Acute Code(s): M62.81 - Muscle weakness (generalized) (9) Essential (primary) hypertension: Status: Chronic Code(s): I10 - Essential (primary) hypertension Plan: Mostly controlled at the time of DC from rehab. Goal BP is < 130/80 and the systolic is not consistently < 130 yet. Lisinopril 2.5 mg daily added to the drug regimen on 09/19/24. Continue the Catapres patch and Metoprolol. Anxiety greatly contributes to elevated BP's. Anxiety is controlled at DC form rehab and she is on Klonopin 0.5 mg at 8 PM and 0.125 mg at 8 AM. She is incontinent of stool and urine. she has a smear of stool every time they cahnge her for wet attends. Not really having diarrhea. Continue Sertraline at 75 mg daily. (10) Diabetes 1.5, managed as type 1: Status: Chronic Code(s): E13.9 - Other specified diabetes mellitus without complications Plan: BS's have all been < 200 recently with no hypoglycemia. She is taking glargine 24 units at 6 AM and 24 units at 6 PM. She is on scheduled lispro at meals, 20 units with breakfast, 14 units with lunch and 10 units with supper. Will continue to follow-up with Dr. Nacho Munguia for management of diabetes mellitus postdischarge from TCU. (11) Hyperlipidemia: Status: Chronic Code(s): E78.5 - Hyperlipidemia, unspecified Plan: On 08/26/2024 the LDL was 51 and the HDL was 53. Triglycerides were 192. (12) Anxiety and depression: Status: Chronic Code(s): F41.9 - Anxiety disorder, unspecified; F32.A - Depression, unspecified Plan: BP's were impossible to control due to severe anxiety with panic attacks. Currently stable on Klonopin 0.5 mg at 8 PM and 0.125 mg at 8 AM daily. Has also been on sertraline 75 mg daily. Previously on Effexor and Duloxetine. These were discontinued due to the potential of serotonin/norepinephrine inhibitors to increase BP and anxiety. We are referring to behavioral health to manage anxiety/depression/panic attacks and provide counselling. (13) Polyneuropathy: Status: Chronic Code(s): G62.9 - Polyneuropathy, unspecified Plan: Due to diabetes mellitus and also to lumbar radiculopathy. Pain is well-controlled at the time of discharge from rehab. She is taking 300 mg of gabapentin at 8 AM and 2 PM and 400 mg at 9 PM. RAdicular pain increases when she is lying in bed most of the day. It improves when she is up in the chair and more active. (14) Acute cystitis with positive culture: Status: Resolved Code(s): N30.00 - Acute cystitis without hematuria Plan: Secondary to Citrobacter Freundii. Treated with 7 days of Rocephin 1 g daily. Comment: Citrobacter Freundii (15) Vaginal candidiasis: Status: Resolved Code(s): B37.31 - Acute candidiasis of vulva and vagina (16) Grade I diastolic dysfunction: Status: Acute Code(s): I51.89 - Other ill-defined heart diseases (17) 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 disease: Status: Chronic Code(s): I67.9 - 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 disease, unspecified (18) Lumbar radiculopathy, chronic: Status: Chronic Code(s): M54.16 - Radiculopathy, lumbar region (19) GERD (gastroesophageal reflux disease): Status: Chronic Code(s): K21.9 - Gastro-esophageal reflux disease without esophagitis (20) Proteinuria due to type 2 diabetes mellitus: Status: Chronic Code(s): E11.29 - Type 2 diabetes mellitus with other diabetic kidney complication; R80.9 - Proteinuria, unspecified Plan: Lisinopril 2.5 mg daily was started on 09/19/2024 for protection of the kidney and also for better blood pressure control. (21) Fecal incontinence: Status: Acute Code(s): R15.9 - Full incontinence of feces Plan: there are 3-4 BM's recorded a day but, she is not having diarrhea. She is incontinent of both urine and stool. Every time nursing changes a wet attends there is a smear of stool which is counted as a bowel movement. (22) Urinary incontinence: Status: Chronic Code(s): R32 - Unspecified urinary incontinence Plan: Due to CVA. Plan 1. Discharge to TCU for additional PT/OT/ST prior to returning home. 2. Needs follow up with cardiology for review of the 30 day event monitor when it has been removed. 3. Recommend she be referred to psychotherapy at the time of DC from TCU ofr chronic anxiety/depression with panic attacks. Referring to [facility] behavioral health. 4. Needs to follow up with neurology post DC. 5. Will follow-up with Dr. Nacho Munguia for management of diabetes mellitus. 6. She has never had a bubble study at [facility]. I reviewed the reports from all the echocardiogram she has had at this institution. She should have an ECHO with bubble study as an OP. 7. She was prescribed 21 days of dual antiplatelet agents after the stroke on 08/25/2024. She has been stable and improving on rehab. If the trade show specialist is negative for atrial fibrillation and she continues to have strokes would consider continuing dual antiplatelet agents. 8. The heart monitor is due to come off on 10/10/24. Will need to follow up with cardiology to review the results. 9. Will need to follow up with Dr. Monsivais for removal of the PEG when no longer using. She had a MBS on 09/19/24 and appeared to have esophageal retention in the distal esophagus. Esophagus was normal when the PEG was inserted. Dr. Monsivais will be able to evaluate possible esophageal retention at her appt. Allergies/Procedures Done in Hospital Allergies shrimp Allergy (Unknown, Verified 08/27/24 12:01) unknown adhesive tape Allergy (Verified 08/27/24 12:01) Hives/Rash ciprofloxacin (From Cipro) Allergy (Verified 08/27/24 12:01) Photosensitivity & dermatitis pioglitazone (From Actos) Allergy (Verified 08/27/24 12:01) Unknown codeine Adverse Reaction (Verified 08/27/24 12:01) Upset Stomach ibandronate sodium (From Boniva) Adverse Reaction (Verified 08/27/24 12:01) GI upset/esophageal burning ibuprofen Adverse Reaction (Verified 08/27/24 12:01) GI upset lansoprazole Adverse Reaction (Verified 08/27/24 12:01) Diarrhea metformin Adverse Reaction (Verified 08/27/24 12:01) Diarrhea miconazole (From Neosporin AF) Adverse Reaction (Verified 08/27/24 12:01) Rash/Blisters nabumetone (From Relafen) Adverse Reaction (Verified 08/27/24 12:01) GI upset pantoprazole (From Protonix) Adverse Reaction (Verified 08/27/24 12:01) Diarrhea sucralfate (From Carafate) Adverse Reaction (Verified 08/27/24 12:01) feels poorly Procedures: 2-D Echocardiogram (08/26/2024 - the report says she had a previous bubble study that was negative but, after reviewing all the ECHO reports from [facility] I can not find that she has ever had a bubble study at [facility]. ) and Peg tube placement (Placed by Dr. Abhinav Monsivais on 08/28/2024. At the time of discharge from rehab we are not using the PEG tube. She will need to follow-up with Dr. Monsivais for removal going forward.) Type of Care/Length of Stay Estimated LOS: Convalescent Care Less Than 30 days Type of Care Needed: Skilled Rehab Potential: Good Prognosis: Good Additional Orders/Day of Discharge Additional Orders: She likes to lie in bed and naps during the day. Requests sleeping medication at night but, she is already getting Klonopin and Gabapentin at night. Would avoid any further sedating medications at bedtime and encourage increased time in the chair during the day and increased activity. She also complains of radicular pain in the R leg when she is laying in bed most of the day. It gets better with movement and getting in the chair. Rather than giving pain medications would take her for a walk if she has pain. H&P will serve as current which was dated: 08/29/24 Day of Discharge: 09/21/24 Dietary and Speech Recommendations Dietitian Recommendations/Changes: Continue 1600 calorie controlled/consistent carbohydrate diet per FIELD CONTACT TECHNICIAN consistency/texture recommendations. Continue 240ml bolus of Jevity 1.5Cal at 22:00 with 175ml flushes to provide 375 calories, 16g protein, and 365ml total fluid. Hold Jevity 1.5Cal 240ml bolus feedings at 07:00, 12:00, 17:00 with 150ml flushes if >50% of meals are consumed. Reviewed and approved by Nargis Garcia RD, LD. Follow Up Care Please follow up with your Primary Care Physician in: Following DC from TCU Please Follow Up With: neurology Please Follow Up With: cardiology Please Follow Up With: behavioral health Please Follow Up With: Nacho Munguia MD Discharge Plan Admission Admit Date/Time: 08/29/24 13:12 Primary Reason for Your Visit: Poststroke debility Attending Provider: Nikky Pastor Primary Care Provider: Emily Yun Discharge Orders/Prescriptions Prescriptions: New clonidine 0.2 mg/24 hr Patch Weekly 0.2 mg transdermal Q7D Qty: 1 0RF clonazepam 0.5 mg Tablet 0.5 mg PO 2000 Qty: 1 0RF clonazepam 0.5 mg Tablet 0.125 mg PO 0800 Qty: 1 0RF bisacodyl 10 mg Suppository 10 mg CA X1 PRN (Reason: Constipation) Qty: 1 0RF IV with Additives Dextrose 10%-Water 250 ML As Directed mls/hr IV PRN (Reason: Hypoglycemia) Ordered By: Nikky Pastor DO Last Taken: Unknown Protocol: Hypoglycemia: Dextrose 10% Protocol Condition: Patient's Blood Glucose > 50mg/dL Dose/Route: Administer 12.5gm (125ml) of Dextrose 10% Condition: Dose/Route: Condition: Patient's Blood Glucose < 50mg/dL Dose/Route: Administer 25gm (250ml) of Dextrose 10% Protocol Text: 1) Administer Dextrose 10% by IV infusion. May infuse at 999 ml/hr or wide open if infusion pump not available 2) Recheck blood glucose in 15 minutes; continue to follow protocol based on repeat blood glucose and patient characteristics gabapentin 400 mg Capsule 400 mg PO 2100 Qty: 1 0RF famotidine 20 mg Tablet 40 mg G-tube DAILY Qty: 1 0RF gabapentin 300 mg Capsule 300 mg G-tube 0800,1400 Qty: 1 0RF Glucagon Emergency Kit (human) 1 mg Recon Soln 1 mg IM X1 PRN (Reason: Hypoglycemia) Qty: 1 0RF ipratropium bromide 42 mcg (0.06 %) [place],Non-Aerosol 2 spray NASAL BID Qty: 1 0RF lisinopril 2.5 mg Tablet 2.5 mg PO DAILY Qty: 1 0RF insulin lispro [Humalog KwikPen Insulin] 100 unit/mL Insulin Pen See Protocol subcut TIDCM Qty: 1 0RF Protocol: 3. Sliding Scale Insulin Med Dosing Condition: 150-189 mg/dl = 1 unit Condition: 190-229 mg/dl = 2 units Condition: 230-269 mg/dl = 3 units Condition: 270-309 mg/dl = 4 units Condition: 310-349 mg/dl = 5 units Condition: 350-399 mg/dl = 6 units Condition: 400-449 mg/dl = 7 units Condition: Greater than 449 call physician Protocol Text: Suggested for: - Patients on Total Daily Insulin Dose of 37-55 units - Obese, infected, or steroid patients MEDIUM DOSING ALGORITHIM insulin lispro [Humalog KwikPen Insulin] 100 unit/mL Insulin Pen 20 unit subcut BREAKFAST Qty: 1 0RF insulin lispro [Humalog KwikPen Insulin] 100 unit/mL Insulin Pen 14 unit subcut 1200,1700 Qty: 1 0RF insulin lispro [Humalog KwikPen Insulin] 100 unit/mL Insulin Pen 10 unit subcut 1700 Qty: 15 0RF Glucerna 1.2 Josr 0.06-1.2 gram-kcal/mL Liquid 120 ml PO 1400,2200 Qty: 1 0RF insulin glargine-yfgn 100 unit/mL (3 mL) Insulin Pen 24 unit subcut BID@1800,0600 Qty: 1 0RF loperamide 2 mg Capsule 2 mg PO Q4H PRN PRN (Reason: Diarrhea) Qty: 1 0RF magnesium hydroxide 400 mg/5 mL Suspension 30 ml PO X1 PRN (Reason: Constipation) Qty: 1 0RF metoprolol tartrate 50 mg Tablet 50 mg PO TID Qty: 1 0RF mupirocin 2 % Ointment 1 applic topical BID Qty: 1 0RF Protocol: *Topical Application Instructions APPLICATION INSTRUCTIONS: Apply to peg tube site nystatin [Nyamyc] 100,000 unit/gram Powder 1 applic topical BID Qty: 1 0RF Protocol: *Topical Application Instructions APPLICATION INSTRUCTIONS: Apply to groin sertraline 50 mg Tablet 75 mg PO DAILY Qty: 1 0RF Continued albuterol sulfate 90 mcg/actuation HFA aerosol inhaler 2 puff inhalation Q6H PRN (Reason: shortness of breath or wheezing) Qty: 6.7 3RF atorvastatin 40 mg Tablet 40 mg G-tube DAILY Qty: 0 0RF acetaminophen 325 mg Tablet 650 mg G-tube Q4H PRN PRN (Reason: Pain 1-10 Or Fever>99.6) Qty: 0 0RF aspirin 81 mg Tablet,Chewable 81 mg G-tube BREAKFAST Qty: 0 0RF cholecalciferol (vitamin D3) 25 mcg (1,000 unit) Tablet 25 mcg G-tube DAILY Qty: 0 0RF clopidogrel 75 mg Tablet 75 mg G-tube DAILY Qty: 1 0RF Rx Instructions: Stop after the last dose on 09/20/24 enoxaparin 40 mg/0.4 mL Syringe 40 mg subcut DAILY Qty: 1 0RF Discontinued duloxetine 60 mg capsule,delayed release(DR/EC) 60 mg PO QHS Qty: 90 2RF esomeprazole magnesium 40 MG capsule,delayed release(DR/EC) 40 mg PO DAILY Lactobacillus acidophilus 500 million cell capsule 500 mmu cells PO DAILY furosemide 20 mg tablet 20 mg PO DAILY PRN (Reason: edema) insulin glargine-yfgn [Semglee(insulin glarg-yfgn)Pen] 100 unit/mL (3 mL) insulin pen 22 unit subcut QHS insulin lispro [Humalog KwikPen Insulin] 100 unit/mL Insulin Pen 15 unit subcut TIDAC Qty: 15 0RF insulin glargine-yfgn 100 unit/mL (3 mL) Insulin Pen 20 unit subcut BID Qty: 15 0RF metoprolol succinate 100 mg tablet extended release 24 hr 100 mg PO DAILY Qty: 1 0RF Rx Instructions: start on 08/06/24 lorazepam 1 mg tablet 1 mg PO DAILY metoprolol succinate 200 mg tablet extended release 24 hr 200 mg PO DAILY rosuvastatin 10 mg tablet 10 mg PO QHS pyridoxine (vitamin B6) 250 mg tablet 250 mg PO DAILY venlafaxine 75 mg Tablet 75 mg G-tube BID Qty: 0 0RF gabapentin 400 mg Capsule 400 mg G-tube BID Qty: 0 0RF famotidine 20 mg Tablet 40 mg G-tube BID Qty: 0 0RF insulin lispro [Humalog KwikPen Insulin] 100 unit/mL Insulin Pen See Protocol subcut ACHS Qty: 0 0RF Protocol: 3. Sliding Scale Insulin Med Dosing Condition: 150-189 mg/dl = 1 unit Condition: 190-229 mg/dl = 2 units Condition: 230-269 mg/dl = 3 units Condition: 270-309 mg/dl = 4 units Condition: 310-349 mg/dl = 5 units Condition: 350-399 mg/dl = 6 units Condition: 400-449 mg/dl = 7 units Condition: Greater than 449 call physician Protocol Text: Suggested for: - Patients on Total Daily Insulin Dose of 37-55 units - Obese, infected, or steroid patients MEDIUM DOSING ALGORITHIM Cranberry Plus Vitamin C 140-100 mg capsule 1 cap PO TID sennosides-docusate sodium [Stimulant Laxative Plus] 8.6-50 mg Tablet 2 tab G-tube BID insulin lispro [Humalog KwikPen Insulin] 100 unit/mL Insulin Pen 1 sliding scale dose subcut [facility] Protocol: 3. Sliding Scale Insulin Med Dosing Condition: 150-189 mg/dl = 1 unit Condition: 190-229 mg/dl = 2 units Condition: 230-269 mg/dl = 3 units Condition: 270-309 mg/dl = 4 units Condition: 310-349 mg/dl = 5 units Condition: 350-399 mg/dl = 6 units Condition: 400-449 mg/dl = 7 units Condition: Greater than 449 call physician Protocol Text: - Use for Total Daily Dose of Insulin 37-55 units - Obsese, infected, or steroid patients MEDIUM DOSING ALGORITHIM (DME) pen needle, diabetic [BD Ultra-Fine Micro Pen Needle] 32 gauge x 1/4 needle See Rx Instructions .ROUTE .MEDSUPPLY Qty: 450 1RF Rx Instructions: 4x/day (DME) OneTouch Verio test strips Strip See Rx Instructions .ROUTE .MEDSUPPLY Qty: 100 3RF Rx Instructions: daily No Action menthol [Blue Gel] 2 % Gel 1 applic topical TID PRN PRN (Reason: Pain 1-10/Inflammation) Qty: 0 0RF Referrals / Follow Up: Emily Yun MD [Primary Care Provider] - 09/24/24 2:30 pm Hernando Pandya MD [Non-Staff -Ordering Privileges] - 10/09/24 11:00 am Frank Garduno DO [Med Staff - [employer]] - 10/02/24 3:00 pm Disposition Disposition (needs filled in before D/C Order can be placed): Senior Care Facility (2) CVA (cerebral vascular accident) Qualifiers: CVA mechanism: unspecified Qualified Code(s): I63.9 - Cerebral infarction, unspecified (3) Dysphagia Qualifiers: Dysphagia type: unspecified Qualified Code(s): R13.10 - Dysphagia, unspecified (11) Hyperlipidemia Qualifiers: Hyperlipidemia type: mixed hyperlipidemia Qualified Code(s): E78.2 - Mixed hyperlipidemia (19) GERD (gastroesophageal reflux disease) Qualifiers: Esophagitis presence: without esophagitis Qualified Code(s): K21.9 - Gastro-esophageal reflux disease without esophagitis (22) Urinary incontinence Qualifiers: Urinary Incontinence type: urinary incontinence without sensory awareness Qualified Code(s): N39.42 - Incontinence without sensory awareness
--- NOTE | 2024-09-19 09:47 | SP.MBSS_ITS ---
Modified Barium Swallow Patient Information Study Date: 09/19/24 Study Time: 09:00 Direct Billable Minutes: 135 Total Minutes procedure & reportin Diagnosis: Oropharyngeal Dysphagia Referring Physician: Nikky Pastor Reason for Referral: Objective assessment of swallow function recommended to assess efficacy of intervention provided and readiness for diet advancement. This patient is an 84 year old female who is known to the [facility] ST department from prior TCU and acute care stays which preceded this Rehab admission.? She had an MRI of the brain on 08/12/2024 that showed subacute punctate infarcts of the white matter of the anterior left parietal lobe. She was admitted to TCU for rehabilitation then developed acute R hemiparesis and confusion on 08/25/2024. MRI on that date showed an acute lacunar infarct in the left pontine body. She has advanced periventricular white matter ischemic changes on imaging studies of the brain over the past few years. She was transferred to PCU. She underwent a MBSS on 08/28/24 which identified severe dysphagia necessitating PEG tube placement on 08/28/[address] Abhinav Monsivais. She was transferred to the acute inpatient rehab unit at [facility] 08/29/2024 for 3 hours of therapy daily to restore function/independence at or near her level prior to the stroke. Pt's diet was advanced to pureed textures/pudding thick liquids per 08/27/24 MBSS recommendations w/ sips of water via teaspoon in accordance w/ [facility] Water Protocol. Medical History: Grade I diastolic dysfunction, debility, carcinoid bronchial adenoma of left lung, herniation of intervertebral disc at L3-L4 level, lumbar scoliosis, abnormal finding on thyroid function test, hypoxia, chronic prescription benzodiazepine use, acute ischemic stroke, diabetes mellitus with hyperglycemia, long-term current use of insulin, wears glasses, MRSA infection, history of Clostridium difficile infection, cancer, thyroid disease, Achilles tendinitis, insulin-dependent diabetes mellitus, walker as ambulation aid, arthritis, bladder disease, easy bruising, injury of back, back pain, unsteady gait, dietary restriction, history of hiatal hernia, gastric reflux, non-smoker, chronic cough, hoarseness, shortness of breath on exertion, leg cramps, history of edema, history of echocardiogram, history of stress test, left lumbar radiculopathy, overweight (BMI 25.0-29.9), migraine without aura, not intractable, without status migrainosus, cerebrovascular disease, macular degeneration, 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 Current Diet Ordered: puree/pudding by teaspoon, small bites/sips by tsp Dentition: Natural Teeth Respiratory Status: Oxygenating on Room Air Penetration-Aspiration Scale Penetration-Aspiration Scale: OBJECTIVE ASSESSMENT OF SWALLOW FUNCTION (QUANTITATIVE ? PER TRIAL): PENETRATION / ASPIRATION SCALE (NIEVES): 1 = does not enter airway 2 = enters airway/above vocal folds/ejected 3 = enters airway/above vocal folds/not ejected 4 = enters airway/contacts vocal folds/ejected 5 = enters airway/contacts vocal folds/not ejected 6 = enters airway/below vocal folds/ejected 7 = enters airway/below vocal folds/not ejected despite effort 8 = enters airway/below vocal folds/no effort Penetration-Aspiration Scale Score Thin 5mL cup: Result: 8= enters airway/below vocal folds/no effort (Thin spilled into the pharynx d/t chin up positioning w/ penetration prior to and during the swallow resulting in transient aspiration (briefly dropped below the vocal folds before returning to the laryngeal vestibule). No cough response to penetration/aspiration. ) Thin 5mL cup trial 2: Result: 2= enter airway/above vocal folds/ejected (transient penetration which ejected completely) Thin 10 mL cup: Result: 1= does not enter airway Thin 10mL cup trial 2: Result: 2= enter airway/above vocal folds/ejected (transient penetration w/ complete ejection) Mildly Thick 5mL teaspoon: Result: 1= does not enter airway (noted contrast atop the vocal folds before this trial, attributed to earlier penetration/aspiration) Mildly Thick 5mL teaspoon trial 2: Result: 1= does not enter airway Mildly Thick 10mL cup: Result: 2= enter airway/above vocal folds/ejected Mildly Thick 10mL cup trial 2: Result: 2= enter airway/above vocal folds/ejected (trace contrast undercoating the posterior laryngeal surface of the epiglottis post prandially) Pudding via teaspoon: Result: 1= does not enter airway Cookie: Result: 1= does not enter airway (mildly prolonged mastication w/ pharyngeal bolus entry to the vallecula prior to swallow onset) Thin Liquid via small single sip: cup: Result: 3= enters airways/above vocal folds/not ejected (contrast undercoating the posterior laryngeal surface of the epiglottis w/ trace lining of the anterior portion of the laryngeal vestibule) Thin Liquid via small single sip: cup Trial 2: Result: 2= enter airway/above vocal folds/ejected (contrast undercoating the posterior laryngeal surface of the epiglottis) Thin Liquid via single sip: straw: Result: 5= enters airways/contacts vocal folds/not ejected (bolus spilled to the pyriforms prior to swallow onset w/ pyriform contrast penetrating to the laryngeal vestibule atop the vocal folds) Thin Liquid via small single sip: cup Chin tuck: Result: 8= enters airway/below vocal folds/no effort (transiently drops below the folds during the swallow w/ contrast retention in the laryngeal vestibule - cued cough not effective to expell contrast from the laryngeal vestibule) Thin Liquid via small single sip: cup Trial 3: Result: 1= does not enter airway Oral Phase Labial Seal: No Labial Escape Tongue Control During Bolus Hold: Cohesive bolus between tongue to palatal seal Bolus Preparation/Mastication: Slow prolonged chewing/mashing with complete recollection Bolus Transport/Lingual Motion: Slowed tongue motion Oral Residue: Trace residue lining oral structures Pharyngeal Phase Initiation of Pharyngeal Swallow: Bolus head in pyriforms Soft Palate Elevation: Trace column of contrast/air between soft palate and pharyngeal wall Laryngeal Elevation: Partial superior movement thyroid cart/partial apprx aryt- epig petiole Anterior Hyoid Excursion: Partial anterior movement Epiglottic Movement: Complete inversion Pharyngeal Stripping Wave: Present - diminished Pharyngoesophageal Segment Opening: Complete distension and complete duration; no obstruction of flow Tongue Base Retraction: Narrow column of contrast between tongue base & post. pharyngeal wall Pharyngeal Residue: Trace residue within or on pharyngeal structures Esophageal Phase Esophageal Clearance: Esophageal retention Treatment Strategies Effects of treatment strategies attemped:: Chin tuck = not effective cough & reswallow = not effective Diagnosis/Impression Diagnosis: moderate oropharyngeal dysphagia Impression: The oral phase is marked by... * prolonged mastication * occasional loss of oral bolus control w/ liquids spilling to the vallecula and/or pryiforms prior to swallow onset The pharyngeal phase is marked by... * incomplete laryngeal vestibule closure w/ laryngeal vestibule penetration which varied from transient to mild w/ small volume thin liquid boluses vs. penetration which transiently contacted and dropped below the vocal folds w/ thin liquids * albeit a small quantity, the patient was insensate to penetration/aspiration (silent) * a cued cough was not sufficient to expel penetrated/aspirated contrast from the laryngeal vestibule The esophageal phase is marked by... * esophageal retention noted w/ pudding during screening, recommend f/u w/ GI post discharge Recommendations Diet: Puree Textures and Pudding-thick Liquids Comment: Pt to will not have any additional ST sessions prior discharge to the TCU on 09/22/24. Pt is somewwhat apprehensive about diet advancement. Rrecommend to continue current diet of puree/pudding thick liquids until seen by ST on TCU to trial/advance to minced and moist textures and thin liquids w/ small bites/small sips, slow rate of intake, seated upright at 90 degrees during and for 30 minutes after intake (GERD precautions). Consider downgrade to mildly thick liquids if showing s/s intolerance at bedside w/ thin via small sips Supervision: Distant Supervision Recommend Repeat Modified Barium Swallow: TBD Need for Skilled Speech Therapy Services: Yes Comment: Skilled ST intervention recommended to target oral bolus coordination, swallow onset timing, laryngeal vestibule closure and cough strength to improve airway protection. Recommended Referrals: GI Consult Education Completed: 1. Described result of evaluation., 2. Pt understands evaluation & agrees with goals and treatment plan. and 4. Family/caregivers understand evaluation & agree w/ goals & tx plan. Status Active ST Patient: Active Contact Information [facility] Speech Therapy:: Shonda Moreira M.A. PREFINISH OPERATOR Speech-Language Pathologist [facility] [address] [place] [address] [email or web address] [phone]
[2024-09-19] MEDS: Lisinopril 2.5 MG Tablet PO (11:49)
[2024-09-19] MEDS: Insulin Lispro 100 UNIT/ML INSULN.PEN 14 UNIT SC ×2 (11:51→17:12)
[2024-09-19] MEDS: Clopidogrel Bisulfate 75 MG Tablet GT (11:53)
[2024-09-19 12:44] LABS: Bedside Glucose 166 mg/dL (74-106)
[2024-09-19] MEDS: Glucerna Shake 120 ML LIQUID PO ×2 (14:34→22:14)
--- NOTE | 2024-09-19 16:26 | DS.PCM_ITS ---
Providers Date of Admission: 08/29/24 Date of Discharge: 09/21/24 Primary Care Physician: Dr. Emily Yun MD Reason For Visit: ACUTE INFARCT Diagnosis Discharge Diagnosis (1) Debility: Status: Acute Code(s): R53.81 - Other malaise (2) CVA (cerebral vascular accident): Status: Acute Code(s): I63.9 - Cerebral infarction, unspecified Qualifiers: CVA mechanism: unspecified Qualified Code(s): I63.9 - Cerebral infarction, unspecified Plan: 08/06/24 and 08/25/24 - ischemic with persistent residual deficits. Plan DC to SNF/TCU on 09/21/24 for additional therapy prior to returning home. (3) Dysphagia: Status: Chronic Code(s): R13.10 - Dysphagia, unspecified Qualifiers: Dysphagia type: unspecified Qualified Code(s): R13.10 - Dysphagia, unspecified Plan: MBS on 09/19/2024 is improved. Still on pudding thick liquids at discharge from rehab and the Garcia water protocol. Speech therapy will advance the diet when they reintroduce thinner liquids to her. (4) Right hemiparesis: Status: Chronic Code(s): G81.91 - Hemiplegia, unspecified affecting right dominant side (5) Facial droop: Status: Chronic Code(s): R29.810 - Facial weakness Plan: Much improved since admission to rehab. When she smiles now she has no facial droop. (6) Paresthesia of right upper and lower extremity: Status: Chronic Code(s): R20.2 - Paresthesia of skin (7) Mild cognitive impairment: Status: Chronic Code(s): G31.84 - Mild cognitive impairment of uncertain or unknown etiology Plan: This is chronic.....it was exacerbated by recent ischemic strokes. (8) Generalized muscle weakness: Status: Acute Code(s): M62.81 - Muscle weakness (generalized) (9) Essential (primary) hypertension: Status: Chronic Code(s): I10 - Essential (primary) hypertension Plan: Mostly controlled at the time of DC from rehab. Goal BP is < 130/80 and the systolic is not consistently < 130 yet. Lisinopril 2.5 mg daily added to the drug regimen on 09/19/24. Continue the Catapres patch and Metoprolol. Anxiety greatly contributes to elevated BP's. Anxiety is controlled at DC form rehab and she is on Klonopin 0.5 mg at 8 PM and 0.125 mg at 8 AM. She is incontinent of stool and urine. she has a smear of stool every time they cahnge her for wet attends. Not really having diarrhea. Continue Sertraline at 75 mg daily. (10) Diabetes 1.5, managed as type 1: Status: Chronic Code(s): E13.9 - Other specified diabetes mellitus without complications Plan: BS's have all been < 200 recently with no hypoglycemia. She is taking glargine 24 units at 6 AM and 24 units at 6 PM. She is on scheduled lispro at meals, 20 units with breakfast, 14 units with lunch and 10 units with supper. Will continue to follow-up with Dr. Nacho Munguia for management of diabetes mellitus postdischarge from TCU. (11) Hyperlipidemia: Status: Chronic Code(s): E78.5 - Hyperlipidemia, unspecified Qualifiers: Hyperlipidemia type: mixed hyperlipidemia Qualified Code(s): E78.2 - Mixed hyperlipidemia Plan: On 08/26/2024 the LDL was 51 and the HDL was 53. Triglycerides were 192. (12) Anxiety and depression: Status: Chronic Code(s): F41.9 - Anxiety disorder, unspecified; F32.A - Depression, unspecified Plan: BP's were impossible to control due to severe anxiety with panic attacks. Currently stable on Klonopin 0.5 mg at 8 PM and 0.125 mg at 8 AM daily. Has also been on sertraline 75 mg daily. Previously on Effexor and Duloxetine. These were discontinued due to the potential of serotonin/norepinephrine inhibitors to increase BP and anxiety. We are referring to behavioral health to manage anxiety/depression/panic attacks and provide counselling. (13) Polyneuropathy: Status: Chronic Code(s): G62.9 - Polyneuropathy, unspecified Plan: Due to diabetes mellitus and also to lumbar radiculopathy. Pain is well- controlled at the time of discharge from rehab. She is taking 300 mg of gabapentin at 8 AM and 2 PM and 400 mg at 9 PM. RAdicular pain increases when she is lying in bed most of the day. It improves when she is up in the chair and more active. (14) Acute cystitis with positive culture: Status: Resolved Code(s): N30.00 - Acute cystitis without hematuria Plan: Secondary to Citrobacter Freundii. Treated with 7 days of Rocephin 1 g daily. (15) Vaginal candidiasis: Status: Resolved Code(s): B37.31 - Acute candidiasis of vulva and vagina (16) Grade I diastolic dysfunction: Status: Acute Code(s): I51.89 - Other ill-defined heart diseases (17) 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 disease: Status: Chronic Code(s): I67.9 - 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 disease, unspecified (18) Lumbar radiculopathy, chronic: Status: Chronic Code(s): M54.16 - Radiculopathy, lumbar region (19) GERD (gastroesophageal reflux disease): Status: Chronic Code(s): K21.9 - Gastro-esophageal reflux disease without esophagitis Qualifiers: Esophagitis presence: without esophagitis Qualified Code(s): K21.9 - Gastro-esophageal reflux disease without esophagitis (20) Proteinuria due to type 2 diabetes mellitus: Status: Chronic Code(s): E11.29 - Type 2 diabetes mellitus with other diabetic kidney complication; R80.9 - Proteinuria, unspecified Plan: Lisinopril 2.5 mg daily was started on 09/19/2024 for protection of the kidney and also for better blood pressure control. (21) Fecal incontinence: Status: Acute Code(s): R15.9 - Full incontinence of feces Qualifiers: Fecal incontinence type: full incontinence of feces Qualified Code(s): R15.9 - Full incontinence of feces Plan: there are 3-4 BM's recorded a day but, she is not having diarrhea. She is incontinent of both urine and stool. Every time nursing changes a wet attends there is a smear of stool which is counted as a bowel movement. (22) Urinary incontinence: Status: Chronic Code(s): R32 - Unspecified urinary incontinence Qualifiers: Urinary Incontinence type: urinary incontinence without sensory awareness Qualified Code(s): N39.42 - Incontinence without sensory awareness Plan: Due to CVA. Plan 1. Discharge to TCU for additional PT/OT/ST prior to returning home. 2. Needs follow up with cardiology for review of the 30 day event monitor when it has been removed. 3. Recommend she be referred to psychotherapy at the time of DC from TCU ofr chronic anxiety/depression with panic attacks. Referring to [facility] behavioral health. 4. Needs to follow up with neurology post DC. 5. Will follow-up with Dr. Nacho Munguia for management of diabetes mellitus. 6. She has never had a bubble study at [facility]. I reviewed the reports from all the echocardiogram she has had at this institution. She should have an ECHO with bubble study as an OP. 7. She was prescribed 21 days of dual antiplatelet agents after the stroke on 08/25/2024. She has been stable and improving on rehab. If the sports medicine trainer is negative for atrial fibrillation and she continues to have strokes would consider continuing dual antiplatelet agents. 8. The heart monitor is due to come off on 10/10/24. Will need to follow up with cardiology to review the results. 9. Will need to follow up with Dr. Monsivais for removal of the PEG when no longer using. She had a MBS on 09/19/24 and appeared to have esophageal retention in the distal esophagus. Esophagus was normal when the PEG was inserted. Dr. Monsivais will be able to evaluate possible esophageal retention at her appt. Medications at Discharge Home Medications albuterol sulfate 90 mcg/actuation aerosol inhaler 2 puff inhalation Q6H PRN shortness of breath or wheezing #6.7 grams 03/07/23 acetaminophen 325 mg tablet 650 mg (2 x 325 mg) G-tube Q4H PRN PRN Pain 1-10 Or Fever>99.6 #0 tabs 08/29/24 aspirin 81 mg chewable tablet 81 mg G-tube BREAKFAST Heart health #0 tabs 08/29/24 atorvastatin 40 mg tablet 40 mg G-tube DAILY Cholesterol #0 tabs 08/29/24 cholecalciferol (vitamin D3) 25 mcg (1,000 unit) tablet 25 mcg G-tube DAILY supplement #0 tabs 08/29/24 menthol 2 % topical gel (Blue Gel) 1 applic topical TID PRN PRN Pain 1- 10/Inflammation #0 grams 08/29/24 IV with Additives As Directed mls/hr IV PRN Hypoglycemia 09/19/24 bisacodyl 10 mg rectal suppository 10 mg MA X1 PRN Constipation #1 ea 09/19/24 clonazepam 0.5 mg tablet 0.125 mg (1/4 x 0.5 mg) PO 0800 #1 TAB 09/19/24 clonazepam 0.5 mg tablet 0.5 mg PO 2000 #1 TAB 09/19/24 clonidine 0.2 mg/24 hr weekly transdermal patch 0.2 mg transdermal Q7D #1 ea 09/19/24 clopidogrel 75 mg tablet 75 mg G-tube DAILY Blood thinner #1 TAB 09/19/24 enoxaparin 40 mg/0.4 mL subcutaneous syringe 40 mg (0.4 mL) subcut DAILY Blood thinner #1 mL 09/19/24 famotidine 20 mg tablet 40 mg (2 x 20 mg) G-tube DAILY #1 TAB 09/19/24 gabapentin 300 mg capsule 300 mg G-tube 0800,1400 #1 cap 09/19/24 gabapentin 400 mg capsule 400 mg PO 2100 #1 cap 09/19/24 glucagon 1 mg solution for injection (Glucagon Emergency Kit) 1 mg IM X1 PRN Hypoglycemia #1 ea 09/19/24 insulin glargine-yfgn 100 unit/mL (3 mL) subcutaneous pen 24 unit (0.24 mL) subcut BID@1800,0600 #1 mL 09/19/24 insulin lispro 100 unit/mL subcutaneous pen (Humalog KwikPen (U-100) Insulin) 10 unit (0.1 mL) subcut 1700 #15 mL 09/19/24 insulin lispro 100 unit/mL subcutaneous pen (Humalog KwikPen (U-100) Insulin) 14 unit (0.14 mL) subcut 1200,1700 #1 mL 09/19/24 insulin lispro 100 unit/mL subcutaneous pen (Humalog KwikPen (U-100) Insulin) 20 unit (0.2 mL) subcut BREAKFAST #1 mL 09/19/24 insulin lispro 100 unit/mL subcutaneous pen (Humalog KwikPen (U-100) Insulin) See Protocol subcut TIDCM #1 mL 09/19/24 ipratropium bromide 42 mcg (0.06 %) nasal spray 2 spray NASAL BID #1 mL 09/19/24 lisinopril 2.5 mg tablet 2.5 mg PO DAILY #1 TAB 09/19/24 loperamide 2 mg capsule 2 mg PO Q4H PRN PRN Diarrhea #1 cap 09/19/24 magnesium hydroxide 400 mg/5 mL oral suspension 30 ml PO X1 PRN Constipation #1 mL 09/19/24 metoprolol tartrate 50 mg tablet 50 mg PO TID #1 TAB 09/19/24 mupirocin 2 % topical ointment 1 applic topical BID #1 g 09/19/24 nutrition tx glu intol,lac-free,soy-fiber 0.06 gram-1.2 kcal/mL liquid (Glucerna 1.2 Josr) 120 ml PO 1400,2200 #1 mL 09/19/24 nystatin 100,000 unit/gram topical powder (Nyamyc) 1 applic topical BID #1 g 09/19/24 sertraline 50 mg tablet 75 mg (1.5 x 50 mg) PO DAILY #1 TAB 09/19/24 Hospital Course Operations None Procedures Peg tube placement (By Dr. Monsivais on 08/28/2024) Summary of Care Provided Hospital Course: CHRISTINA IVORY, is a 84 YO F known to me from previous admission to TCU for stroke in July 2024. Past medical history is significant for hypertension, diabetes mellitus type 2, hyperlipidemia, chronic kidney disease, history of multiple CVA's (the first 3 years ago), anxiety/depression, GERD, history of migraines, chronic mild cognitive impairment, hypothyroidism, Lumbar radiculopathy, restless leg syndrome and 2 recent strokes (08/06/24 and 08/25/24). She had an MRI of the brain on 08/12/2024 that showed subacute punctate infarcts of the white matter of the anterior left parietal lobe. She was admitted to TCU for rehabilitation then developed acute R hemiparesis and confusion on 08/25/2024. MRI on that date showed an acute lacunar infarct in the left pontine body. She has advanced periventricular white matter ischemic changes on imaging studies of the brain over the past few years. She was transferred to PCU. Tele-neurology consult was obtained. Asa + Plavix (for 21 days) was recommended for a total of 21 days and then continuing with ASA alone. A 30 day event monitor was also recommended given the recent strokes in different territories of the brain t0 r/o AFIB. The monitor was applied while she was on rehab and is in place at Ut to TCU on 09/21/24. It will come off on 10/10/24 and she will follow up with [facility] to review the reulsts. Goal BP was recommended to be < 140/80. Echocardiogram on 07/11/2024 showed a normal left ventricular ejection fraction of 75% with stage I diastolic dysfunction. There was mild diffuse mitral valve thickening and mild focal aortic valve thickening. Both atria are of normal size. The most recent TTE was on 08/26/2024 and there were no significant changes but there was documentation that the previous bubble study had been negative. I reviewed all echocardiograms on the EMR from 2017 forward and I cannot find a bubble study. She will need a ECHO with bubble study as an OP after DC from acute rehab. Carotid ultrasound showed less than 50% stenosis in both internal carotid arteries with patent and antegrade vertebrals bilaterally. She has never had a CORDELL. Due to severe dysphagia a PEG tube was inserted on 08/28/[address] Abhinav Monsivais. She was transferred to the acute inpatient rehab unit at [facility] 08/29/2024 for 3 hours of therapy daily to restore function/independence at or near her level prior to the stroke on 08/25/2024. NIH score at arrival on rehab was 7 with a modified Kervin score of 4. At the time of discharge from rehab her NIHSS is 3 and the modified Morrow score is still 4. BP is controlled at DC from rehab and the blood sugars are well controlled with no hypoglycemia. BP and blood sugars were very uncontrolled at presentation to rehab. She has a long hx of anxiety/depression/panic attacks and when she gets anxious the BP soars. She was started on Klonopin BID, 0.5 mg at HS and 0.125 mg in the AM. She was also started on Sertraline. She has in the past been on Duloxetine and Effexor but, due to the norepinephrine reuptake inhibition these medications can increase BP and also increase anxiety. At discharge she is tolerating sertraline 75 mg daily with no adverse side effects. She denies nausea and vomiting. Nursing is reporting 3-4 bowel movements daily but she has been incontinent of both stool and urine. When they change her attends for being wet she usually has a small smear of stool. She is not really having diarrhea. BP meds were adjusted and at DC she is on a Catapres TTS 2 patch and metoprolol 50 mg 3 times daily. She was started on lisinopril 2.5 mg daily on 09/19/2024 for systolic greater than 140 and proteinuria. She had a 24- hour urine done while on acute rehab and the catecholamines and metanephrines were within normal limits however, she was on alpha and beta blockade at the time to control her blood pressure and this can affect the results. BP is much better since the anxiety is controlled. I have recommended she follow up with the Behavioral Health program at [facility] and an appt was made for her to follow up with Dr. Garduno on 10/02/24 at 3 PM. Danica did quite well on rehab. At the time of discharge from acute rehab she is able to ascend/descend two 6 inch steps with 2 handrails at contact-guard assist going up and mod assist coming down. She is able to do 7 sit to stands using her upper extremities to push up at contact-guard assist/min assist. She has ambulated up to 110 feet with a front wheel walker at contact-guard assist/min assist. She is supervision/set up for eating and requires only minimal assistance with grooming and bathing. She requires moderate assistance with upper body dressing and lower body dressing. She is contact-guard assist for toilet transfer but still total assist for toileting. She is still incontinent of both urine and stool. She is contact-guard assist for tub/shower transfer. Would place her on a toileting schedule on TCU and place her on the toilet at scheduled times during the day to help prevent incontinence. The 30-day event monitor should come off on 10/10/2024. She should follow- up with [facility] within 10 to 14 days after the monitor is removed to discuss the results. She has been in sinus rhythm every time I have examined her since she was transferred to acute rehab. She will follow-up with Dr. Pandya from neurology on 10/09/2024 at 11 AM. She has an appointment with Dr. Jama brown on 212 25-30 p.m. she will continue to follow-up with Dr. Nacho Munguia for diabetic management. She has never had a bubble study at [facility] after reviewing all the ECHO reports she has had at this institution. Recommend she have a bubble study done as an OP to r/o a R to L shunt. She has extensive white matter changes on the imaging and I suspect this is the etiology of the strokes and it is due to long standing HTN, DM II and HLD. Danica was transferred to the transitional care unit at [facility] on 09/21/2024 for additional PT/OT/ST prior to hopefully returning home with her . Physical Exam Const alert, oriented x3 and no apparent distress Constitutional Narrative: Pleasant and makes good eye contact with me when we are talking. She is very motivated to get better and never refuses therapy. General Appearance: cooperative and well kempt HEENT normocephalic and head/scalp atraumatic HEENT Narrative: She has been doing a much better job of drinking fluids and her mucous membranes are moist. Eyes PERRL, EOMs intact bilaterally, conjunctivae normal and no scleral icterus Eyes Narrative: No discharge from the eyes and no mattering of the eyelashes. She has bilateral intraocular lens implants. Neck No nodes and no carotid bruits General: trachea midline Resp normal respiratory effort, normal air movement and clear to auscultation bilaterally Resp Narrative: Able to speak in complete sentences however speech is somewhat halting due to aphasia. Speech is much more fluent than it was at admission to rehab. Effort and Inspection: Negative for tachypneic or respiratory distress Cardio regular rate, regular rhythm, S1 normal heart sound, S2 normal heart sound, no rub and no gallops Cardio Narrative: She has a systolic murmur heard best at the second right intercostal space with radiation to the lower left sternal border and the apex. This may be a flow murmur because it was not present in July 2024 when I examined her. She has had no atrial fibrillation anytime I have examined her while on rehab. There is no ectopy today. GI normal to inspection, nondistended, normoactive bowel sounds, soft to palpation and non-tender GI Narrative: No guarding with palpation. no CVA tenderness Narrative: She has some burning with urination after several days of Rocephin to treat acute cystitis secondary to Citrobacter Freundii. This resolved with Monistat vaginal cream. Back/Spine Back/Spine Narrative: She occasionally has radicular pain in the right lower extremity. She is taking gabapentin 300 mg twice daily and 400 mg at bedtime. She complains of the pain mostly when she is not out of bed very much and not moving much. The pain gets better when she is sitting up in a chair and she has had increased activity. Extremity no calf tenderness Extremity Narrative: the left foot is cooler to touch than the R and it is sometimes dusky. Dorsalis pedis pulses are 2+ by bilaterally. He has superficial varicosities of both lower extremities. General Extremity: Negative for edema Skin Rashes: no rashes Neuro oriented x3 Neuro Narrative: Speech is still not as fluent as it was prior to the most recent stroke. Enunciation is much better. Speech is more crisp. The tongue protrudes on the midline. She barely has any facial droop she smiles. She has no drift with any of her extremities. She has decreased sensation in the right arm and the right leg. Mild ataxia with the RUE. No visual field cuts and no extinction. She is not neglecting the R side Psych Psych Narrative: She is calm and not anxious. Sleeping well at night. Good appetite. Pleasant. Making good eye contact and she is engaged. She is calm and sleeping well most nights. She sleeps a lot during the day and then sometimes has trouble sleeping at night and requests a sleeping pill. she was instructed that you can't sleep during the day and expect to sleep through the night. I recommended she get up in the chair with all meals and when she has company. Recommended she increase her activity and avoid napping during the day if at all possible. Appearance: appropriate and well kempt Attitude: calm and engaged Activity / Motor Behavior: appropriate eye contact Weight / BMI Weight Weight: 154 lb 8 oz Body Mass Index (BMI) 28.2 ABG / Lab / Microbiology Data 09/15/24 05:35 09/15/24 05:35 Laboratory: Laboratory Results - last 24 hr 09/18/24 16:54: POC Glucose 129 H 09/18/24 20:43: POC Glucose 152 H 09/19/24 06:09: POC Glucose 161 H 09/19/24 11:52: POC Glucose 166 H Microbiology: Microbiology 09/08/24 08:30 Wound - Abdominal Gram Stain - Final 09/08/24 08:30 Wound - Abdominal Wound Culture - Final Serratia marcescens 09/08/24 10:55 Urine Catheter - Ugalde Urine Culture - Final Citrobacter freundii 08/29/24 15:53 Urine Catheter - Catheter Urine Culture - Final Yeast, not Shanna albicans Indicators for Scoring Admitted with or Primary Diagnosis of CVA/Stroke: Yes Hx of CVA/Stroke: Yes Modified Morrow Score MRS Score at time of Evaluation: 4-Moderate/severe disability NIHSS NIHSS 1a. Level of Consciousness: Alert; keenly responsive 1b. LOC Questions: Answers BOTH questions correctly. 1c. LOC Commands: Performs both tasks correctly. 2. Best Gaze: Normal 3. Visual: No visual loss 4. Facial Palsy: Normal symmetrical movements 5a. Left Arm: No drift; arm holds 90 (or 45) degrees for full 10 seconds 5b. Right Arm: No drift; arm holds 90 (or 45) degrees for full 10 seconds 6a. Left Leg: No drift; leg holds 30-degree position for full 5 seconds 6b. Right Leg: No drift; leg holds 30-degree position for full 5 seconds 7. Limb Ataxia: Present in 1 limb 8. Sensory: [id number] sensory loss; (Right arm and leg) 9. Best Language: No aphasia; normal 10. Dysarthria: [id number] dysarthria; 11. Extinction and Inattention: No abnormality Total: 3 (Down from a 7 at admission to rehab.) D/C Instructions DC O2, CPAP, BIPAP Needs Home O2 Discharge instructions: No Please Follow Up With: neurology Meaningful Use Info Meaningful Use Meaningful Use Diagnoses (Choose all that apply): Ischemic CVA CVA Therapy Assessed for PT,OT and/or ST?: Yes Ischemic Stroke Antithrombotic order at d/c?: Yes Dx of Atrial fib/flutter?: No Anticoagulant at discharge?: No Reason anticoagulant not ordered: Treatment not Indicated Statin Dosing Therapy Reference: STATIN DOSE THERAPY REFERENCE: * Patients > 75 years receive moderate or high dose statin therapy. * Patients 75 years or YOUNGER should receive HIGH intensity statin dose unless contraindicated. You will be required to document reason for non-treatment if statin daily dose does not meet guidelines. HIGH DOSE STATIN THERAPY DAILY Atorvastatin > than or = to 40 mg Rosuvastatin > than or = to 20 mg Amlodipine + Atorvastatin > than or = to 2.5/40 mg Ezetimibe + Simvastatin 10/80 mg Simvastatin 80mg Statins at discharge?: Yes Primary Dx Acute Ischemic CVA?: Yes IV thrombolytic ordered during stay?: No Reason IV thrombolytic not ordered: Procedure not Indicated Discharge Plan Admission Admit Date/Time: 08/29/24 13:12 Primary Reason for Your Visit: Poststroke debility Attending Provider: Nikky Pastor Primary Care Provider: Emily Yun Discharge Orders/Prescriptions Prescriptions: New clonidine 0.2 mg/24 hr Patch Weekly 0.2 mg transdermal Q7D Qty: 1 0RF clonazepam 0.5 mg Tablet 0.5 mg PO 2000 Qty: 1 0RF clonazepam 0.5 mg Tablet 0.125 mg PO 0800 Qty: 1 0RF bisacodyl 10 mg Suppository 10 mg MA X1 PRN (Reason: Constipation) Qty: 1 0RF IV with Additives Dextrose 10%-Water 250 ML As Directed mls/hr IV PRN (Reason: Hypoglycemia) Ordered By: Nikky Pastor DO Last Taken: Unknown Protocol: Hypoglycemia: Dextrose 10% Protocol Condition: Patient's Blood Glucose > 50mg/dL Dose/Route: Administer 12.5gm (125ml) of Dextrose 10% Condition: Dose/Route: Condition: Patient's Blood Glucose < 50mg/dL Dose/Route: Administer 25gm (250ml) of Dextrose 10% Protocol Text: 1) Administer Dextrose 10% by IV infusion. May infuse at 999 ml/hr or wide open if infusion pump not available 2) Recheck blood glucose in 15 minutes; continue to follow protocol based on repeat blood glucose and patient characteristics gabapentin 400 mg Capsule 400 mg PO 2100 Qty: 1 0RF famotidine 20 mg Tablet 40 mg G-tube DAILY Qty: 1 0RF gabapentin 300 mg Capsule 300 mg G-tube 0800,1400 Qty: 1 0RF Glucagon Emergency Kit (human) 1 mg Recon Soln 1 mg IM X1 PRN (Reason: Hypoglycemia) Qty: 1 0RF ipratropium bromide 42 mcg (0.06 %) [place],Non-Aerosol 2 spray NASAL BID Qty: 1 0RF lisinopril 2.5 mg Tablet 2.5 mg PO DAILY Qty: 1 0RF insulin lispro [Humalog KwikPen Insulin] 100 unit/mL Insulin Pen See Protocol subcut TIDCM Qty: 1 0RF Protocol: 3. Sliding Scale Insulin Med Dosing Condition: 150-189 mg/dl = 1 unit Condition: 190-229 mg/dl = 2 units Condition: 230-269 mg/dl = 3 units Condition: 270-309 mg/dl = 4 units Condition: 310-349 mg/dl = 5 units Condition: 350-399 mg/dl = 6 units Condition: 400-449 mg/dl = 7 units Condition: Greater than 449 call physician Protocol Text: Suggested for: - Patients on Total Daily Insulin Dose of 37-55 units - Obese, infected, or steroid patients MEDIUM DOSING ALGORITHIM insulin lispro [Humalog KwikPen Insulin] 100 unit/mL Insulin Pen 20 unit subcut BREAKFAST Qty: 1 0RF insulin lispro [Humalog KwikPen Insulin] 100 unit/mL Insulin Pen 14 unit subcut 1200,1700 Qty: 1 0RF insulin lispro [Humalog KwikPen Insulin] 100 unit/mL Insulin Pen 10 unit subcut 1700 Qty: 15 0RF Glucerna 1.2 Josr 0.06-1.2 gram-kcal/mL Liquid 120 ml PO 1400,2200 Qty: 1 0RF insulin glargine-yfgn 100 unit/mL (3 mL) Insulin Pen 24 unit subcut BID@1800,0600 Qty: 1 0RF loperamide 2 mg Capsule 2 mg PO Q4H PRN PRN (Reason: Diarrhea) Qty: 1 0RF magnesium hydroxide 400 mg/5 mL Suspension 30 ml PO X1 PRN (Reason: Constipation) Qty: 1 0RF metoprolol tartrate 50 mg Tablet 50 mg PO TID Qty: 1 0RF mupirocin 2 % Ointment 1 applic topical BID Qty: 1 0RF Protocol: *Topical Application Instructions APPLICATION INSTRUCTIONS: Apply to peg tube site nystatin [Nyamyc] 100,000 unit/gram Powder 1 applic topical BID Qty: 1 0RF Protocol: *Topical Application Instructions APPLICATION INSTRUCTIONS: Apply to groin sertraline 50 mg Tablet 75 mg PO DAILY Qty: 1 0RF Continued albuterol sulfate 90 mcg/actuation HFA aerosol inhaler 2 puff inhalation Q6H PRN (Reason: shortness of breath or wheezing) Qty: 6.7 3RF atorvastatin 40 mg Tablet 40 mg G-tube DAILY Qty: 0 0RF acetaminophen 325 mg Tablet 650 mg G-tube Q4H PRN PRN (Reason: Pain 1-10 Or Fever>99.6) Qty: 0 0RF aspirin 81 mg Tablet,Chewable 81 mg G-tube BREAKFAST Qty: 0 0RF cholecalciferol (vitamin D3) 25 mcg (1,000 unit) Tablet 25 mcg G-tube DAILY Qty: 0 0RF clopidogrel 75 mg Tablet 75 mg G-tube DAILY Qty: 1 0RF Rx Instructions: Stop after the last dose on 09/20/24 enoxaparin 40 mg/0.4 mL Syringe 40 mg subcut DAILY Qty: 1 0RF Discontinued duloxetine 60 mg capsule,delayed release(DR/EC) 60 mg PO QHS Qty: 90 2RF esomeprazole magnesium 40 MG capsule,delayed release(DR/EC) 40 mg PO DAILY Lactobacillus acidophilus 500 million cell capsule 500 mmu cells PO DAILY furosemide 20 mg tablet 20 mg PO DAILY PRN (Reason: edema) insulin glargine-yfgn [Semglee(insulin glarg-yfgn)Pen] 100 unit/mL (3 mL) insulin pen 22 unit subcut QHS insulin lispro [Humalog KwikPen Insulin] 100 unit/mL Insulin Pen 15 unit subcut TIDAC Qty: 15 0RF insulin glargine-yfgn 100 unit/mL (3 mL) Insulin Pen 20 unit subcut BID Qty: 15 0RF metoprolol succinate 100 mg tablet extended release 24 hr 100 mg PO DAILY Qty: 1 0RF Rx Instructions: start on 08/06/24 lorazepam 1 mg tablet 1 mg PO DAILY metoprolol succinate 200 mg tablet extended release 24 hr 200 mg PO DAILY rosuvastatin 10 mg tablet 10 mg PO QHS pyridoxine (vitamin B6) 250 mg tablet 250 mg PO DAILY venlafaxine 75 mg Tablet 75 mg G-tube BID Qty: 0 0RF gabapentin 400 mg Capsule 400 mg G-tube BID Qty: 0 0RF famotidine 20 mg Tablet 40 mg G-tube BID Qty: 0 0RF insulin lispro [Humalog KwikPen Insulin] 100 unit/mL Insulin Pen See Protocol subcut ACHS Qty: 0 0RF Protocol: 3. Sliding Scale Insulin Med Dosing Condition: 150-189 mg/dl = 1 unit Condition: 190-229 mg/dl = 2 units Condition: 230-269 mg/dl = 3 units Condition: 270-309 mg/dl = 4 units Condition: 310-349 mg/dl = 5 units Condition: 350-399 mg/dl = 6 units Condition: 400-449 mg/dl = 7 units Condition: Greater than 449 call physician Protocol Text: Suggested for: - Patients on Total Daily Insulin Dose of 37-55 units - Obese, infected, or steroid patients MEDIUM DOSING ALGORITHIM Cranberry Plus Vitamin C 140-100 mg capsule 1 cap PO TID sennosides-docusate sodium [Stimulant Laxative Plus] 8.6-50 mg Tablet 2 tab G-tube BID insulin lispro [Humalog KwikPen Insulin] 100 unit/mL Insulin Pen 1 sliding scale dose subcut [facility] Protocol: 3. Sliding Scale Insulin Med Dosing Condition: 150-189 mg/dl = 1 unit Condition: 190-229 mg/dl = 2 units Condition: 230-269 mg/dl = 3 units Condition: 270-309 mg/dl = 4 units Condition: 310-349 mg/dl = 5 units Condition: 350-399 mg/dl = 6 units Condition: 400-449 mg/dl = 7 units Condition: Greater than 449 call physician Protocol Text: - Use for Total Daily Dose of Insulin 37-55 units - Obsese, infected, or steroid patients MEDIUM DOSING ALGORITHIM (DME) pen needle, diabetic [BD Ultra-Fine Micro Pen Needle] 32 gauge x 1/4 needle See Rx Instructions .ROUTE .MEDSUPPLY Qty: 450 1RF Rx Instructions: 4x/day (DME) OneTouch Verio test strips Strip See Rx Instructions .ROUTE .MEDSUPPLY Qty: 100 3RF Rx Instructions: daily No Action menthol [Blue Gel] 2 % Gel 1 applic topical TID PRN PRN (Reason: Pain 1-10/Inflammation) Qty: 0 0RF Referrals / Follow Up: Emily Yun MD [Primary Care Provider] - 09/24/24 2:30 pm Hernando Pandya MD [Non-Staff -Ordering Privileges] - 10/09/24 11:00 am Frank Garduno DO [Med Staff - Concrete Form Setter] - 10/02/24 3:00 pm Disposition Disposition (needs filled in before D/C Order can be placed): Care Home Facility Charges/Coding Visit Charges Inpatient E&M: 08965 Disch Hosp >30min
[2024-09-19 17:43] LABS: Bedside Glucose 113 mg/dL (74-106)
[2024-09-19 21:54] LABS: Bedside Glucose 104 mg/dL (74-106)
[2024-09-19] MEDS: clonazePAM 0.5 MG Tablet PO (22:12)
[2024-09-19] MEDS: Gabapentin 400 MG Capsule PO (22:13)
[2024-09-20] VITALS (7 sets, daily range): BP systolic 119–136; BP diastolic 54–72; PULSE 63–87; RESP 16; TEMP 36.3–36.4; O2SAT 94–96; BMI 28.2; BMI 27.3
[2024-09-20] MEDS: Insulin Glargine-YFGN 100 UNIT/ML Pen 24 UNIT SC ×2 (06:41→18:15)
[2024-09-20] MEDS: Metoprolol Tartrate 50 MG Tablet PO ×3 (06:43→20:37)
[2024-09-20] MEDS: Enoxaparin 40 MG/0.4 ML Syringe SC (06:43)
[2024-09-20 06:46] LABS: Bedside Glucose 171 mg/dL (74-106)
[2024-09-20] MEDS: Insulin Lispro 100 UNIT/ML INSULN.PEN SC ×2 (09:00→12:46)
[2024-09-20] MEDS: Insulin Lispro 100 UNIT/ML INSULN.PEN 20 UNIT SC (09:00)
[2024-09-20] MEDS: Sertraline 50 MG Tablet PO (09:02)
[2024-09-20] MEDS: Famotidine 20 MG Tablet 40 MG GT (09:02)
[2024-09-20] MEDS: Clopidogrel Bisulfate 75 MG Tablet GT (09:02)
[2024-09-20] MEDS: Lisinopril 2.5 MG Tablet PO (09:02)
[2024-09-20] MEDS: Aspirin 81 MG TAB.CHEW GT (09:03)
[2024-09-20] MEDS: Ipratropium Bromide 0.06% NASAL SPRAY 2 SPRAY NASAL ×2 (09:04→20:36)
[2024-09-20] MEDS: Atorvastatin Calcium 40 MG Tablet GT (09:04)
[2024-09-20] MEDS: Mupirocin Ointment 22gm Tube 1 APPLIC TOPICAL ×2 (09:04→20:37)
[2024-09-20] MEDS: Cholecalciferol (VIT D3) 25 MCG TABLET (1,000 UNITS) GT (09:05)
[2024-09-20] MEDS: Nystatin Powder 15gm Bottle 1 APPLIC TOPICAL ×2 (09:05→20:34)
[2024-09-20] MEDS: Menthol/Lanolin/Calamine/Znox 113 GM Tube 1 APPLIC TOPICAL ×2 (09:05→20:34)
[2024-09-20] MEDS: Gabapentin 300 MG Capsule GT ×2 (09:26→13:21)
[2024-09-20] MEDS: clonazePAM 0.5 MG Tablet 0.125 MG PO (09:26)
[2024-09-20 11:45] LABS: Bedside Glucose 210 mg/dL (74-106)
[2024-09-20] MEDS: Insulin Lispro 100 UNIT/ML INSULN.PEN 14 UNIT SC ×2 (12:46→18:16)
[2024-09-20] MEDS: Glucerna Shake 120 ML LIQUID PO ×2 (13:19→20:34)
[2024-09-20 17:23] LABS: Bedside Glucose 128 mg/dL (74-106)
[2024-09-20] MEDS: clonazePAM 0.5 MG Tablet PO (20:33)
[2024-09-20] MEDS: Gabapentin 400 MG Capsule PO (20:33)
[2024-09-20] MEDS: Acetaminophen 325 MG Tablet 650 MG GT (20:57)
[2024-09-20] MEDS: MENTHOL 226.8 GM JAR 1 APPLIC TOPICAL (21:05)
[2024-09-21 00:40] VITALS: BMI 27.3
[2024-09-21 00:52] LABS: Bedside Glucose 179 mg/dL (74-106)
[2024-09-21 05:24] VITALS: BP 153/58; PULSE 62; RESP 17; TEMP 36.2; O2SAT 97; BMI 27.1
[2024-09-21 05:39] VITALS: BP 153/58; PULSE 62
[2024-09-21] MEDS: Enoxaparin 40 MG/0.4 ML Syringe SC (05:39)
[2024-09-21] MEDS: Metoprolol Tartrate 50 MG Tablet PO ×2 (05:39→13:03)
[2024-09-21] MEDS: Insulin Glargine-YFGN 100 UNIT/ML Pen 24 UNIT SC (06:20)
[2024-09-21 06:44] LABS: Bedside Glucose 147 mg/dL (74-106)
[2024-09-21] MEDS: clonazePAM 0.5 MG Tablet 0.125 MG PO (07:54)
[2024-09-21] MEDS: Cholecalciferol (VIT D3) 25 MCG TABLET (1,000 UNITS) GT (07:55)
[2024-09-21] MEDS: Famotidine 20 MG Tablet 40 MG GT (07:55)
[2024-09-21] MEDS: Ipratropium Bromide 0.06% NASAL SPRAY 2 SPRAY NASAL (07:55)
[2024-09-21] MEDS: Gabapentin 300 MG Capsule GT ×2 (07:55→13:04)
[2024-09-21] MEDS: Lisinopril 2.5 MG Tablet PO (07:56)
[2024-09-21] MEDS: Mupirocin Ointment 22gm Tube 1 APPLIC TOPICAL (07:56)
[2024-09-21] MEDS: Aspirin 81 MG TAB.CHEW GT (07:56)
[2024-09-21] MEDS: Menthol/Lanolin/Calamine/Znox 113 GM Tube 1 APPLIC TOPICAL (07:57)
[2024-09-21] MEDS: Atorvastatin Calcium 40 MG Tablet GT (07:58)
[2024-09-21] MEDS: Sertraline 50 MG Tablet PO (07:58)
[2024-09-21] MEDS: Insulin Lispro 100 UNIT/ML INSULN.PEN 20 UNIT SC (08:00)
[2024-09-21] MEDS: Nystatin Powder 15gm Bottle 1 APPLIC TOPICAL (08:01)
[2024-09-21 10:00] VITALS: BP 132/70; PULSE 66
[2024-09-21 11:05] LABS: Bedside Glucose 211 mg/dL (74-106)
[2024-09-21 12:59] VITALS: BMI 27.1
[2024-09-21 13:03] VITALS: BP 118/54; PULSE 64
[2024-09-21] MEDS: Glucerna Shake 120 ML LIQUID PO (13:03)
[2024-09-21] MEDS: Insulin Lispro 100 UNIT/ML INSULN.PEN 14 UNIT SC (13:05)
[2024-09-21] MEDS: Insulin Lispro 100 UNIT/ML INSULN.PEN SC (13:05)
--- NOTE | 2024-09-21 14:45 | NURSING ---
Report given to TCU and patient discharged with at her side.
== END 2024-09-21 14:45 | disposition skilled nursing facility (03) | DRG 57 ==
PROVIDERS: Admitting Provider Internal Medicine; PCP Internal Medicine; Visit Provider Internal Medicine
DX: I69.351 Hemiplegia and hemiparesis following cerebral infarction affecting right dominant side (principal); N30.00 Acute cystitis without hematuria; E83.39 Other disorders of phosphorus metabolism; I69.322 Dysarthria following cerebral infarction; I69.318 Other symptoms and signs involving cognitive functions following cerebral infarction; R13.10 Dysphagia, unspecified; E13.65 Other specified diabetes mellitus with hyperglycemia; F32.A Depression, unspecified; I12.9 Hypertensive chronic kidney disease with stage 1 through stage 4 chronic kidney disease, or unspecified chronic kidney disease; N18.9 Chronic kidney disease, unspecified; E13.22 Other specified diabetes mellitus with diabetic chronic kidney disease; Z93.1 Gastrostomy status; I69.392 Facial weakness following cerebral infarction; K21.9 Gastro-esophageal reflux disease without esophagitis; M54.16 Radiculopathy, lumbar region; E13.42 Other specified diabetes mellitus with diabetic polyneuropathy; Z79.4 Long term (current) use of insulin; G31.84 Mild cognitive impairment of uncertain or unknown etiology; E78.2 Mixed hyperlipidemia; Z79.02 Long term (current) use of antithrombotics/antiplatelets; F41.0 Panic disorder [episodic paroxysmal anxiety]; Z79.82 Long term (current) use of aspirin; Z79.01 Long term (current) use of anticoagulants; B37.31 Acute candidiasis of vulva and vagina; N39.42 Incontinence without sensory awareness; Z79.899 Other long term (current) drug therapy; B96.89 Other specified bacterial agents as the cause of diseases classified elsewhere
CPT/HCPCS: 36415; 36600; 74230; 80048; 80053; 81001; 82009; 82384; 82803; 82962; 83735; 83835; 84100; 84439; 85014; 85018; 85025; 85027; 87070; 87077; 87086; 87088; 87186; 87205; 92507; 92523; 92526; 92610; 92611; 97110; 97112; 97116; 97129; 97130; 97161; 97167; 97530; 97535; 97802; 97803; A4216; J1610

== ENCOUNTER 2024-09-21 14:47 | Inpatient (IN) | payer MEDICARE, OTHER, SELFPAY ==
[2024-09-21 14:59] VITALS: BP 129/66; PULSE 65; RESP 18; TEMP 36; O2SAT 97; BMI 28.4; BMI 28.5
[2024-09-21 15:00] VITALS: BMI 28.4
[2024-09-21 15:26] VITALS: PULSE 66; RESP 16; O2SAT 96
--- NOTE | 2024-09-21 15:43 | HP.PCM_ITS ---
HPI - General General Date of Admission: 09/21/24 Date of Service: 09/22/24 Chief Complaint: Here for rehabilitation. HPI Narrative CHRISTINA IVORY, is a 84 Female who presents with followin08/28/2024 Dr. Monsivais placed PEG for severe dysphagia. 08/29/2024 Admit to . Hospitalized for stroke. Teleneurology recommended aspirin + plavix x 21 days, then aspirin alone. 30 day event recorder to rule out atrial fibrillation. Blood pressure goal < 140/80. PT/OT/ST. Gabapentin 400mg bid, Roxanol for right sciatica pain. Metoprolol 25mg q8 for HTN. TF via PEG. 09/01/2024 Normal saline 1 liter IV bolus. Increase gabapentin to 400mg tid. Neutra-phos 1 packet bid for hypophosphatemia. Change Effexor to Sertraline 50mg daily 09/14 insomnia. Buspar 5mg bid for anxiety. 09/02/2024 Adjust insulin. Stop Buspar, instead order Xanax 0.125mg q8 prn, Klonopin 0.25mg qhs anxiety. 09/04/2024 Klonopin 0.5mg 0800, 2000. Adjust insulin. Neuropathic leg pain improved gabapentin 400mg tid. Metoprolol XL 50mg bid. 09/05/2024 Catapres 1 patch for HTN. Evaluate for secondary causes of HTN. 09/08/2024 Change gabapentin to 300mg bid, 400mg qhs. 09/09/2024 Augmentin for PEG site infection, urinary tract infection. Increase Catapres patch to 2. 09/11/2024 Rocephin thru 09/19/2024 for UTI. 09/12/2024 Urine metanephrines, catecholamines normal. Increase Metoprolol 50mg bid for HTN. 09/15/2024 Stop Xanax. Fluconazole 100mg daily x 3 doses for yeast vaginitis. Finish Rocephin for UTI. 09/16/2024 Blood pressure improved. 09/18/2024 Plan discharge to TCU 09/21/2024. 09/21/2024 Admit to TCU with debility, here for rehabilitation, strengthening, prior to discharge home with . [facility] Medical History (Updated 09/21/24 @ 15:[address] Denzel Forbes MD) Proteinuria due to type 2 diabetes mellitus Lumbar radiculopathy, chronic Carotid artery stenosis Abnormal urinalysis Facial droop Expressive aphasia Grade I diastolic dysfunction Debility Carcinoid bronchial adenoma of left lung Herniation of intervertebral disc at L3-L4 level Lumbar scoliosis Abnormal finding on thyroid function test Hypoxia Chronic prescription benzodiazepine use Acute ischemic stroke Wears glasses MRSA infection History of Clostridium difficile infection Cancer Thyroid disease Achilles tendinitis Insulin dependent diabetes mellitus Walker as ambulation aid Arthritis Bladder disease Easy bruising Injury of back Back pain Unsteady gait Dietary restriction History of hiatal hernia Gastric reflux Non-smoker Chronic cough Hoarseness Shortness of breath on exertion Leg cramps History of edema History of echocardiogram History of stress test Overweight (BMI 25.0-29.9) Migraine without aura, not intractable, without status migrainosus 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 disease Macular degeneration 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 Acute gastritis Enlargement of lymph nodes Migraine Restless legs GERD (gastroesophageal reflux disease) Essential (primary) hypertension Acute chest pain Home Medications ?Medication ?Instructions ?Recorded ?Last Taken ?Type albuterol sulfate 90 mcg/actuation 2 puff inhalation Q 6H PRN 03/07/23 Unknown Rx aerosol inhaler shortness of breath or wheez ing #6.7 grams acetaminophen 325 mg tablet 650 mg (2 x 325 mg) G-tube Q4H PRN 08/29/24 09/20/24 Rx PRN Pain 1-10 Or Fever>99.6 #0 tabs aspirin 81 mg chewable tablet 81 mg G-tube BREAKFAST H eart 08/29/24 09/21/24 Rx health #0 tabs atorvastatin 40 mg tablet 40 mg G-tube DAILY Cholester ol #0 08/29/24 09/21/24 Rx tabs cholecalciferol (vitamin D3) 25 25 mcg G-tube DAILY peña pplement #0 08/29/24 09/21/24 Rx mcg (1,000 unit) tablet tabs menthol 2 % topical gel (Blue Gel) 1 applic topical TI D PRN PRN Pain 08/29/24 Unknown Rx 1-10/Inflammation #0 grams IV with Additives As Directed mls/hr IV PRN Unknown Rx Hypoglycemia bisacodyl 10 mg rectal suppository 10 mg WV X1 PRN Con stipation #1 ea 09/19/24 08/30/24 Rx clonazepam 0.5 mg tablet 0.125 mg (1/4 x 0.5 mg) PO 0 800 09/19/24 09/21/24 Rx mood #1 TAB clonazepam 0.5 mg tablet 0.5 mg PO 2000 mood #1 TAB 0 09/19/24 09/20/24 Rx clonidine 0.2 mg/24 hr weekly 0.2 mg transdermal Q7D b lood 09/19/24 09/17/24 Rx transdermal patch pressure #1 ea clopidogrel 75 mg tablet 75 mg G-tube DAILY Blood thi nner 09/19/24 08/29/24 Rx #1 TAB enoxaparin 40 mg/0.4 mL 40 mg (0.4 mL) subcut DAILY Blood 09/19/24 09/21/24 Rx subcutaneous syringe thinner #1 mL famotidine 20 mg tablet 40 mg (2 x 20 mg) G-tube KATY LY 09/19/24 09/21/24 Rx stomach #1 TAB gabapentin 300 mg capsule 300 mg G-tube 0800,1400 nerv e pain 09/19/24 09/21/24 Rx #1 cap gabapentin 400 mg capsule 400 mg PO 2100 nerve pain #1 cap 09/19/24 09/20/24 Rx glucagon 1 mg solution for 1 mg IM X1 PRN Hypoglycemia #1 ea 09/19/24 09/09/24 Rx injection (Glucagon Emergency Kit) insulin glargine-yfgn 100 unit/mL 24 unit (0.24 mL) peña bcut 09/19/24 09/21/24 Rx (3 mL) subcutaneous pen BID@1800,0600 blood sugar #1 mL insulin lispro 100 unit/mL 10 unit (0.1 mL) subcut 170 0 blood 09/19/24 09/14/24 Rx subcutaneous pen (Humalog KwikPen sugar #15 mL (U-100) Insulin) insulin lispro 100 unit/mL 14 unit (0.14 mL) subcut 12 00,1700 09/19/24 09/21/24 Rx subcutaneous pen (Humalog KwikPen blood sugar #1 mL (U-100) Insulin) insulin lispro 100 unit/mL 20 unit (0.2 mL) subcut GLYNN AKFAST 09/19/24 09/21/24 Rx subcutaneous pen (Humalog KwikPen blood sugar #1 mL (U-100) Insulin) insulin lispro 100 unit/mL See Protocol subcut TIDCM b lood 09/19/24 09/21/24 Rx subcutaneous pen (Humalog KwikPen sugar #1 mL (U-100) Insulin) ipratropium bromide 42 mcg (0.06 2 spray NASAL BID con gestion #1 mL 09/19/24 09/21/24 Rx %) nasal spray lisinopril 2.5 mg tablet 2.5 mg PO DAILY blood pressu re #1 09/19/24 09/21/24 Rx TAB loperamide 2 mg capsule 2 mg PO Q4H PRN PRN Diarrhea #1 cap 09/19/24 09/17/24 Rx magnesium hydroxide 400 mg/5 mL 30 ml PO X1 PRN Consti pation #1 mL 09/19/24 08/30/24 Rx oral suspension metoprolol tartrate 50 mg tablet 50 mg PO TID heart #1 TAB 09/19/24 09/21/24 Rx mupirocin 2 % topical ointment 1 applic topical BID se e MD #1 g 09/19/24 09/21/24 Rx nutrition tx glu 120 ml PO 1400,2200 suppleme nt #1 09/19/24 09/21/24 Rx intol,lac-free,soy-fiber 0.06 mL gram-1.2 kcal/mL liquid (Glucerna 1.2 Josr) nystatin 100,000 unit/gram topical 1 applic topical BI D redness #1 g 09/19/24 09/21/24 Rx powder (Nyamyc) sertraline 50 mg tablet 75 mg (1.5 x 50 mg) PO DAILY mood 09/19/24 09/21/24 Rx #1 TAB Allergy/AdvReac Type Severity Reaction Status Date / Time shrimp Allergy Unknown unknown Verified 08/27/24 12:01 adhesive tape Allergy Hives/Rash Verified 08/27/24 12:01 ciprofloxacin (From Cipro) Allergy Photosensitivity Verified 08/27/24 12:01 & dermatitis pioglitazone (From Actos) Allergy Unknown Verified 08/27/24 12:01 codeine AdvReac Upset Verified 08/27/24 12:01 Stomach ibandronate sodium (From AdvReac GI Verified 08/27/24 12:01 Boniva) upset/esophageal burning ibuprofen AdvReac GI upset Verified 08/27/24 12:01 lansoprazole AdvReac Diarrhea Verified 08/27/24 12:01 metformin AdvReac Diarrhea Verified 08/27/24 12:01 miconazole (From Neosporin AdvReac Rash/Bliste Verified 08/27/24 12:01 AF) rs nabumetone (From Relafen) AdvReac GI upset Verified 08/27/24 12:01 pantoprazole (From Protonix) AdvReac Diarrhea Verified 08/27/24 12:01 sucralfate (From Carafate) AdvReac feels Verified 08/27/24 12:01 poorly Family History Father Lung cancer Colon cancer Mother Mesothelioma Hypertension Grandmother Heart disease Surgical History (Updated 09/21/24 @ 15:[address] Denzel Forbes MD) S/P lobectomy of lung Hx of colonoscopy Hx of right cataract extraction Hx of left cataract extraction History of lobectomy of lung History of lung biopsy H/O endoscopy Spinal injections S/P rotator cuff repair Social History household members: spouse housing: house pets and animals: No Smoking Status: Never smoker second hand exposure: No alcohol intake: current alcohol intake frequency: holidays/special occasions only substance use type: does not use ROS Constitutional Constitutional: Reports weakness; Denies chills, fever(s) or weight gain ENT HEENT: Denies headache(s), nasal congestion or nasal discharge Cardiovascular Cardiovascular: Denies chest pain or palpitations Respiratory/Chest Respiratory/Chest: Denies cough, excessive phlegm production or shortness of breath with exertion Gastrointestinal Gastrointestinal: Denies abdominal pain, nausea or vomiting Genitourinary Genitourinary: Denies dysuria Musculoskeletal Musculoskeletal: Denies joint pain or joint swelling Integumentary Integumentary: Denies rash or wounds Neurologic Neurologic: Denies focal weakness, numbness or tingling Psychiatric Psychiatric: Denies anxiety, auditory hallucinations, depression, homicidal ideation or suicidal ideation Vital Signs Vital Signs Vital Signs: 09/21/24 14:59 09/21/24 15:26 Temperature 96.8 F L Temperature Source Temporal Pulse Rate 65 66 Pulse Rhythm Regular Pulse Strength Normal (2+) Respiratory Rate 18 16 Respiratory Effort Normal Respiratory Depth Normal Respiratory Pattern Normal Blood Pressure 129/66 H Blood Pressure Mean 87 Blood Pressure Source Monitor Blood Pressure Position Sitting Blood Pressure Location Left Arm Pulse Ox 97 96 Oxygen Delivery Method Room Air Room Air Weight Weight: 70.488 kg Body Mass Index (BMI) 28.4 Physical Exam Const alert General Appearance: cooperative HEENT normocephalic Eyes PERRL and EOMs intact bilaterally Neck supple, no JVD and no carotid bruits Resp normal respiratory effort, normal air movement and clear to auscultation bilaterally Cardio regular rate and regular rhythm GI normal to inspection, nondistended, normoactive bowel sounds, non-tender and non-distended GI Narrative: PEG. Extremity normal capillary refill General Extremity: Negative for edema Skin no rashes or lesions noted General Skin Exam: no breakdown Neuro moves all extremities Neuro Narrative: Right hemiparesis. Psych affect normal Appearance: appropriate Results Lab / Micro Data 09/22/24 05:09 09/22/24 05:09 Assessment & Plan Assessment/Plan (1) Debility: (2) CVA (cerebral vascular accident): QUALIFIERS: CVA mechanism: unspecified Qualified Code(s): I63.9 - Cerebral infarction, unspecified (3) Dysphagia: QUALIFIERS: Dysphagia type: unspecified Qualified Code(s): R13.10 - Dysphagia, unspecified (4) Status post insertion of percutaneous endoscopic gastrostomy (PEG) tube: (5) UTI (urinary tract infection): QUALIFIERS: Hematuria presence: without hematuria Urinary tract infection type: acute cystitis Qualified Code(s): N30.00 - Acute cystitis without hematuria (6) Vaginal candidiasis: (7) Type 2 diabetes mellitus with hyperglycemia: (8) Essential (primary) hypertension: (9) Hyperlipidemia: QUALIFIERS: Hyperlipidemia type: mixed hyperlipidemia Qualified Code(s): E78.2 - Mixed hyperlipidemia (10) Depression: (11) Anxiety: (12) GERD (gastroesophageal reflux disease): QUALIFIERS: Esophagitis presence: without esophagitis Qualified Code(s): K21.9 - Gastro-esophageal reflux disease without esophagitis (13) Migraine: (14) Mild cognitive impairment: (15) Right sided sciatica: (16) Restless legs: PLAN: Plan 84 year old female with below past medical history hospitalized for stroke, requiring PEG for dysphagia, admitted to , complicated by difficult to control HTN, neuropathic leg pain, urinary tract infection, yeast vaginitis, admitted to TCU with debility, here for rehabilitation, strengthening, prior to discharge home with . * Debility - PT/OT/ST. * Pain - Tylenol 650mg q4 prn. * Bowel - Dulcolax 10mg pr x 1 prn, MOM 30mL x 1 prn, Imodium 2mg q4 prn. * Adult immunization - Administer pneumonia vaccine, covid vaccine, flu vaccine as appropriate. * DVT prophylaxis - Lovenox 40mg sc daily. * Shortness of breath - Albuterol 2.5mg neb q6 prn. * Stroke - Aspirin 81mg daily. * Hyperlipidemia - Atorvastatin 40mg daily. * Vitamin D deficiency - D3 25mcg daily. * Hypertension - Metoprolol 50mg bid, Lisinopril 2.5mg daily, clonidine 0.2mg patch td qweek. * Anxiety - Clonazepam 0.125mg, 0.5mg stable use, GDR not recommended. * GERD - Famotidine 40mg daily. * Neuropathic pain - Gabapentin 300mg, 300mg, 600mg. * Diabetes Mellitus II - Glargine 24 units bid, Humalog 20 units, 14 units 10 unts, Glucagon 1mg im x 1 orn. * Nutrition - Glucerna shake 120mL po bid. * Allergic rhinitis - Atorvent nasal spray 2 sprays nasal bid. * Skin irritation - Calmoseptine topical bid. * PEG site - Mupirocin topical bid. * Tinea Corporis - Nystatin powder topical bid. * Depression - Sertraline 75mg daily, stable chronic use, GDR not recommended.
--- NOTE | 2024-09-21 15:48 | NURSING ---
clonidine patch to LT upper post shoulder placed on 09/17
--- NOTE | 2024-09-21 16:25 | NURSING ---
blood sugar 80 this evening, OJ given. asymptomatic. dr arguelles updated, new order to hold supper insulin
[2024-09-21 16:30] LABS: Bedside Glucose 80 mg/dL (74-106)
[2024-09-21 17:27] LABS: Bedside Glucose 116 mg/dL (74-106)
[2024-09-21] MEDS: Gabapentin 400 MG Capsule GT (20:40)
[2024-09-21] MEDS: clonazePAM 0.5 MG Tablet GT (20:40)
[2024-09-21] MEDS: Ipratropium Bromide 0.06% NASAL SPRAY 2 SPRAY NASAL (20:41)
[2024-09-21] MEDS: Insulin Glargine-YFGN 100 UNIT/ML Pen 24 UNIT SC (20:43)
[2024-09-21] MEDS: Mupirocin Ointment 22gm Tube 1 APPLIC TOPICAL (20:46)
[2024-09-21] MEDS: Menthol/Lanolin/Calamine/Znox 113 GM Tube 1 APPLIC TOPICAL (20:47)
[2024-09-21] MEDS: Acetaminophen 325 MG Tablet 650 MG GT (20:51)
[2024-09-21 20:54] VITALS: BP 129/61; PULSE 68
[2024-09-21] MEDS: Nystatin Powder 15gm Bottle 1 APPLIC TOPICAL (20:54)
[2024-09-21] MEDS: Metoprolol Tartrate 50 MG Tablet GT (20:54)
[2024-09-21 21:05] LABS: Bedside Glucose 180 mg/dL (74-106)
[2024-09-22] MEDS: MENTHOL 226.8 GM JAR 1 APPLIC TOPICAL ×2 (01:02→21:39)
[2024-09-22] MEDS: Acetaminophen 325 MG Tablet 650 MG GT ×3 (01:02→21:33)
[2024-09-22 05:46] LABS: Absolute Neutrophil Count 3.5 X10^3/uL (2.0-7.7); Basophil# 0.04 X10^3/uL; Basophil% 0.6 % (0-1); Eosinophil# 0.32 X10^3/uL; Eosinophils% 4.7 % (0-5); Hematocrit 35.2 % (37-47); Hemoglobin 11.8 g/dL (12.0-15.0); Lymphocyte % 32.3 % (19-41); Mean Corp Hgb Conc 33.5 g/dL (32-36); Mean Corpuscular Hgb 31.2 pg (27.0-32.0); Mean Corpuscular Volume 93.1 fL (81-99); Mean Platelet Vol. 10.1 fl (6.2-12.0); Monocyte# 0.77 X10^3/uL; Monocyte% 11.3 % (0-10); NRBC Flagged by Analyzer 0 % (0-5); Neutrophil # 3.47 X10^3/uL (2.7-7.7); Neutrophil % 50.8 % (47-70); Platelet Count 266 K/mm3 (150-450); RBC Distribution Width CV 12.9 % (11.6-14.6); RBC Distribution Width SD 43.8 fl (35.1-43.9); Red Blood Count 3.78 M/mm3 (4.2-5.4); White Blood Count 6.8 K/mm3 (4.4-11.0)
[2024-09-22 06:12] LABS: Anion Gap 9 (5-15); BUN 17 mg/dL (7-18); BUN/Creat Ratio 23.1 RATIO (10-20); Chloride 107 mmol/L (98-107); Creatinine, Serum 0.74 mg/dL (0.55-1.02); EST Glomerular Filtration Rate 80 mL/min (>60); Est Glom Filt Rate - Afr Amer 97 mL/min (>60); Estimated Creatinine Clearance 49.86 ml/min; Glucose 129 mg/dL (74-106); Potassium 4.1 mmol/L (3.5-5.1); Sodium Level 140 mmol/L (136-145)
[2024-09-22 06:14] LABS: Bedside Glucose 136 mg/dL (74-106)
[2024-09-22] MEDS: Menthol/Lanolin/Calamine/Znox 113 GM Tube 1 APPLIC TOPICAL ×2 (06:36→21:18)
[2024-09-22] MEDS: Insulin Glargine-YFGN 100 UNIT/ML Pen 24 UNIT SC ×2 (06:36→19:31)
[2024-09-22 06:37] VITALS: BP 137/55; PULSE 58
[2024-09-22] MEDS: Metoprolol Tartrate 50 MG Tablet GT ×3 (06:37→21:18)
[2024-09-22 06:54] VITALS: PULSE 58; RESP 17
[2024-09-22] MEDS: Cholecalciferol (VIT D3) 25 MCG TABLET (1,000 UNITS) GT (08:24)
[2024-09-22] MEDS: Atorvastatin Calcium 40 MG Tablet GT (08:24)
[2024-09-22] MEDS: Sertraline 50 MG Tablet 75 MG GT (08:24)
[2024-09-22] MEDS: Lisinopril 2.5 MG Tablet GT (08:24)
[2024-09-22] MEDS: Aspirin 81 MG TAB.CHEW GT (08:24)
[2024-09-22] MEDS: Famotidine 20 MG Tablet 40 MG GT (08:24)
[2024-09-22] MEDS: Nystatin Powder 15gm Bottle 1 APPLIC TOPICAL ×2 (08:25→21:18)
[2024-09-22] MEDS: Mupirocin Ointment 22gm Tube 1 APPLIC TOPICAL ×2 (08:25→21:16)
[2024-09-22] MEDS: Enoxaparin 40 MG/0.4 ML Syringe SC (08:26)
[2024-09-22] MEDS: Insulin Lispro 100 UNIT/ML INSULN.PEN 20 UNIT SC (08:26)
[2024-09-22] MEDS: Ipratropium Bromide 0.06% NASAL SPRAY 2 SPRAY NASAL ×2 (08:26→21:15)
[2024-09-22] MEDS: Gabapentin 300 MG Capsule GT ×2 (08:30→13:53)
[2024-09-22] MEDS: clonazePAM 0.5 MG Tablet 0.125 MG GT (08:31)
--- NOTE | 2024-09-22 08:59 | NURSING ---
Offered covid vaccine, VIS provided. Resident declines at this time.
[2024-09-22 09:00] VITALS: BP 124/57; PULSE 60; RESP 16; TEMP 36.2; O2SAT 99
[2024-09-22 11:37] LABS: Bedside Glucose 218 mg/dL (74-106)
--- NOTE | 2024-09-22 11:45 | NURSING ---
Factory Clerk Note; Activity Asset: Brunilda Torres has returned to TCU becca her stroke. She remains independent in her choice of daily activities w/reminders. She has her smartphone/tablet, will read the daily, watch tv and visits w/family and friends daily. She welcomes visits w/impregnator and therapy dog when available. Staff will encourage social activities, remind her of weekly activities and respect her right to say no.
[2024-09-22] MEDS: Insulin Lispro 100 UNIT/ML INSULN.PEN 14 UNIT SC (12:45)
[2024-09-22] MEDS: Tuberculin,Purif.prot.deriv. 50 TU/ML Vial 0.1 ML ID (12:47)
[2024-09-22 13:53] VITALS: BP 121/59; PULSE 59
[2024-09-22 13:59] VITALS: BP 121/59; PULSE 59
[2024-09-22 16:48] LABS: Bedside Glucose 66 mg/dL (74-106)
[2024-09-22 17:37] LABS: Bedside Glucose 68 mg/dL (74-106)
[2024-09-22 17:37] LABS: Bedside Glucose 86 mg/dL (74-106)
--- NOTE | 2024-09-22 18:55 | NURSING ---
4pm blood sugar reading 66. Oj and pudding provided and 100% consumed. Rechecked sugar x2. First reading 68. Second reading 86. Dr. Forbes updated and new order received 1) D/C Lispro orders. Patient and spouse aware. Patient currently finishing dinner with family at side.
[2024-09-22 19:54] LABS: Bedside Glucose 128 mg/dL (74-106)
[2024-09-22] MEDS: clonazePAM 0.5 MG Tablet GT (21:14)
[2024-09-22] MEDS: Gabapentin 600 MG Tablet GT (21:14)
[2024-09-22 21:18] VITALS: BP 134/54; PULSE 61
[2024-09-22 21:50] LABS: Bedside Glucose 159 mg/dL (74-106)
[2024-09-23] VITALS (7 sets, daily range): BP systolic 129–147; BP diastolic 56–67; PULSE 60–67; RESP 16–18; TEMP 36.3; O2SAT 97; BMI 28.3
[2024-09-23] MEDS: Menthol/Lanolin/Calamine/Znox 113 GM Tube 1 APPLIC TOPICAL ×2 (05:42→21:05)
[2024-09-23] MEDS: Insulin Glargine-YFGN 100 UNIT/ML Pen 24 UNIT SC ×2 (05:42→17:09)
[2024-09-23] MEDS: Metoprolol Tartrate 50 MG Tablet GT ×3 (05:42→21:09)
[2024-09-23 06:30] LABS: Bedside Glucose 150 mg/dL (74-106)
[2024-09-23] MEDS: Atorvastatin Calcium 40 MG Tablet GT (09:48)
[2024-09-23] MEDS: Aspirin 81 MG TAB.CHEW GT (09:48)
[2024-09-23] MEDS: Enoxaparin 40 MG/0.4 ML Syringe SC (09:49)
[2024-09-23] MEDS: Ipratropium Bromide 0.06% NASAL SPRAY 2 SPRAY NASAL ×2 (09:51→21:09)
[2024-09-23] MEDS: Mupirocin Ointment 22gm Tube 1 APPLIC TOPICAL ×2 (09:53→21:05)
[2024-09-23] MEDS: Famotidine 20 MG Tablet 40 MG GT (10:00)
[2024-09-23] MEDS: Lisinopril 2.5 MG Tablet GT (10:00)
[2024-09-23] MEDS: Sertraline 50 MG Tablet 75 MG GT (10:00)
[2024-09-23] MEDS: Cholecalciferol (VIT D3) 25 MCG TABLET (1,000 UNITS) GT (10:00)
[2024-09-23] MEDS: Nystatin Powder 15gm Bottle 1 APPLIC TOPICAL ×2 (10:01→21:07)
--- NOTE | 2024-09-23 10:06 | PHA.CONS_ITS ---
Documented by User: Kasandra Monroe 09/23/24 10:41 TCU RX Drug Regimen Review Subjective/Objective Subjective/Objective Subjective: TCU Admission. 84 YOF presented from [facility]. Hospitalized for stroke, requiring PEG for dysphagia, admitted to [facility], complicated by difficult to control HTN, neuropathic leg pain, urinary tract infection, yeast vaginitis. Admitted to TCU with debility for strengthening and rehabilitation. Objective: Allergies shrimp Allergy (Unknown, Verified 08/27/24 12:01) unknown adhesive tape Allergy (Verified 08/27/24 12:01) Hives/Rash ciprofloxacin (From Cipro) Allergy (Verified 08/27/24 12:01) Photosensitivity & dermatitis pioglitazone (From Actos) Allergy (Verified 08/27/24 12:01) Unknown codeine Adverse Reaction (Verified 08/27/24 12:01) Upset Stomach ibandronate sodium (From Boniva) Adverse Reaction (Verified 08/27/24 12:01) GI upset/esophageal burning ibuprofen Adverse Reaction (Verified 08/27/24 12:01) GI upset lansoprazole Adverse Reaction (Verified 08/27/24 12:01) Diarrhea metformin Adverse Reaction (Verified 08/27/24 12:01) Diarrhea miconazole (From Neosporin AF) Adverse Reaction (Verified 08/27/24 12:01) Rash/Blisters nabumetone (From Relafen) Adverse Reaction (Verified 08/27/24 12:01) GI upset pantoprazole (From Protonix) Adverse Reaction (Verified 08/27/24 12:01) Diarrhea sucralfate (From Carafate) Adverse Reaction (Verified 08/27/24 12:01) feels poorly Current Medications Generic Name Dose Route Start Last Admin Trade Name Freq PRN Reason Stop Dose Admin Acetaminophen 650 mg 09/21/24 15:16 09/22/24 21:33 Acetaminophen 325 Mg Tablet GT 650 mg Q4H PRN PRN Administration Pain 1-10 Or Fever>99.6 Albuterol Sulfate 2.5 mg 09/21/24 15:52 Albuterol 2.5 Mg/3 Ml Vial.Neb. INHALATION Q6H PRN PRN shortness of breath or wheezing Aspirin 81 mg 09/22/24 08:00 09/22/24 08:24 Aspirin 81 Mg Tab.Chew GT 81 mg BREAKFAST COLLINS Administration Atorvastatin Calcium 40 mg 09/22/24 10:00 09/22/24 08:24 Atorvastatin Calcium 40 Mg Tablet GT 40 mg DAILY COLLINS Administration Bisacodyl 10 mg 09/21/24 15:16 Bisacodyl 10 Mg Suppository RC X1 PRN Constipation Calamine/Phenol 1 applic 09/21/24 22:00 09/23/24 05:42 Menthol/Lanolin/Calamine/Znox 113 Gm Tube TOPICAL 1 applic 0600,2200 COLLINS Administration Protocol Cholecalciferol 25 mcg 09/22/24 10:00 09/22/24 08:24 Cholecalciferol (Vit D3) 25 Mcg Tablet (1,000 Units) GT 25 mcg DAILY COLLINS Administration Clonazepam 0.5 mg 09/21/24 20:00 09/22/24 21:14 Clonazepam 0.5 Mg Tablet GT 0.5 mg 2000 COLLINS Administration Clonazepam 0.125 mg 09/22/24 08:00 09/22/24 08:31 Clonazepam 0.5 Mg Tablet GT 0.125 mg 0800 COLLINS Administration Clonidine HCl 0.2 mg 09/24/24 10:00 Clonidine Hcl 0.2 Mg Patch TD We@1000 [facility] Enoxaparin Sodium 40 mg 09/22/24 10:00 09/22/24 08:26 Enoxaparin 40 Mg/0.4 Ml Syringe SC 40 mg DAILY CO[facility]INS Administration Famotidine 40 mg 09/22/24 10:00 09/22/24 08:24 Famotidine 20 Mg Tablet GT 40 mg DAILY CO[facility]INS Administration Gabapentin 300 mg 09/22/24 08:00 09/22/24 13:53 Gabapentin 300 Mg Capsule GT 300 mg 0800,1400 COLLINS Administration Gabapentin 600 mg 09/22/24 21:00 09/22/24 21:14 Gabapentin 600 Mg Tablet GT 600 mg 2100 COLLINS Administration Glucagon 1 mg 09/21/24 15:16 Glucagon 1 Mg/Ml Syringe IM X1 PRN Hypoglycemia Insulin Glargine 24 unit 09/21/24 18:00 09/23/24 05:42 Insulin Glargine-Yfgn 100 Unit/Ml Pen SC 24 unit 0600,1800 COLLINS Administration Ipratropium [place] 2 spray 09/21/24 22:00 09/22/24 21:15 Ipratropium [place] 0.06% Nasal Lester NASAL 2 spray BID COLLINS Administration Lisinopril 2.5 mg 09/22/24 10:00 09/22/24 08:24 Lisinopril 2.5 Mg Tablet GT 2.5 mg DAILY [facility] Administration Protocol Loperamide HCl 2 mg 09/21/24 15:22 Loperamide 2 Mg Capsule GT Q4H PRN PRN Diarrhea Magnesium Hydroxide 30 ml 09/21/24 15:22 Magnesium Hydroxide 30 Ml Udc GT X1 PRN Constipation Menthol 1 applic 09/21/24 21:08 09/22/24 21:39 Menthol 226.8 Gm Jar TOPICAL 1 applic TID PRN PRN Administration Topical Pain Metoprolol Tartrate 50 mg 09/21/24 22:00 09/23/24 05:42 Metoprolol Tartrate 50 Mg Tablet GT 50 mg TID [facility] Administration Protocol Mupirocin 1 applic 09/21/24 22:00 09/22/24 21:16 Mupirocin Ointment 22gm Tube TOPICAL 1 applic BID [facility] Administration Protocol Nutritional Formula (Lactose Free) 120 ml 09/21/24 22:00 09/22/24 21:28 Glucerna Shake 120 Ml Liquid PO Not Given 1400,2200 [facility] Nystatin 1 applic 09/21/24 22:00 09/22/24 21:18 Nystatin Powder 15gm Bottle TOPICAL 1 applic BID [facility] Administration Protocol Sertraline HCl 75 mg 09/22/24 10:00 09/22/24 08:24 Sertraline 50 Mg Tablet GT 75 mg DAILY [facility] Administration Sodium Chloride 10 - 40 ml 09/21/24 15:01 0.9% Saline Lock 10 Ml Syringe IV UD PRN SALINE FLUSH Tuberculin PPD 0.1 ml 09/29/24 10:00 Tuberculin,Purif.Prot.Deriv. 50 Tu/Ml Vial ID 09/29/24 10:01 X1 ONE Problem List Restless legs (Acute) Right sided sciatica (Acute) Migraine (Acute) Anxiety (Acute) Depression (Acute) Essential (primary) hypertension (Acute) Type 2 diabetes mellitus with hyperglycemia (Acute) Status post insertion of percutaneous endoscopic gastrostomy (PEG) tube (Acute) CVA (cerebral vascular accident) (Acute) Dysphagia (Chronic) Debility (Acute) Hyperlipidemia (Chronic) Mild cognitive impairment (Chronic) GERD (gastroesophageal reflux disease) (Chronic) Vital Signs Temp Pulse Resp BP Pulse Ox O2 Del Method 97.2 F L 60 16 147/59 H 99 Room Air 09/22/24 09:00 09/23/24 05:42 09/22/24 09:00 09/23/24 05:42 09/22/24 09:00 09/22/24 09:00 Oxygen Delivery Method Room Air Weight: 70.488 kg Body Mass Index (BMI) 28.4 Sodium 140 mmol/L (136-145) 09/22/24 05:09 Potassium 4.1 mmol/L (3.5-5.1) 09/22/24 05:09 Chloride 107 mmol/L (98-107) 09/22/24 05:09 Carbon Dioxide 24.0 mmol/L (21.0-32.0) 09/22/24 05:09 Anion Gap 9 (5-15) 09/22/24 05:09 BUN 17 mg/dL (7-18) 09/22/24 05:09 Creatinine 0.74 mg/dL (0.55-1.02) 09/22/24 05:09 Est GFR (MDRD) Af Amer 97 mL/min (>60) 09/22/24 05:09 Est GFR (MDRD) Non-Af 80 mL/min (>60) 09/22/24 05:09 BUN/Creatinine Ratio 23.1 RATIO (10-20) H 09/22/24 05:09 Glucose 129 mg/dL (74-106) H 09/22/24 05:09 Assessment/Plan: 1. Pain: acetaminophen 650mg GT Q4H PRN pain 1-10/fever and menthol blue gel topical TID PRN topical pain (2 doses given). Resident has had 4 doses of acetaminophen for pain scores 5-8 for generalized/leg pain. Please continue to monitor for increased pain and PRN usage. 2. Bowel: bisacodyl 10mg RC x1 PRN constipation, MOM 30mL GT x1 PRN constipation, loperamide 2mg GT Q4H PRN diarrhea. Resident has not used any PRN doses. Last documented bowel movement was 09/22. 3. DVT prophylaxis: enoxaparin 40mg SC daily. Please continue to monitor S/S of bleeding/DVT, renal function, hemoglobin (last 11.8g/dL) and platelets (last 266,000). 4. Stroke: aspirin 81mg GT daily. Please continue to monitor for S/S of bleeding/stroke and hemoglobin. 5. Hypertension: metoprolol tartrate 50mg GT BID, lisinopril 2.5mg GT daily and clonidine 0.2mg patch 1 patch topical weekly. Please continue to monitor BP (last 147/59), HR (last 60), renal function, potassium (last 4.1mmol/L) and cough. 6. Diabetes Mellitus II: insulin glargine 24 units SC BID. Please continue to monitor blood sugars (last 150mg/dL), hemoglobin A1c (last 7.2% 08/28/24), S/S of hypoglycemia. 7. Hyperlipidemia: atorvastatin 40mg GT daily. Please continue to monitor for lipid panel (last 08/26/24), LFTs (last 08/30/24), and muscle pain. 8. GERD: famotidine 40mg PO daily. Please continue to monitor for S/S of GERD and renal function. 9. Shortness of breath: albuterol 2.5mg nebulized solution Q6H PRN SOB/wheezing. Resident has not had any doses. Please continue to monitor for SOB, wheezing and PRN usage. 10. Allergic rhinitis: Atrovent nasal spray 2 sprays nasal daily. Please continue to monitor for S/S of allergic and nasal irritation. 11. Vitamin D deficiency: cholecalciferol 25mcg PO daily. Please continue to monitor vitamin D (last 08/26/24). 12. Skin irritation/PEG site/Tinea Corporis: Calmoseptine topical bid, Mupirocin topical bid, Nystatin powder topical bid. Please continue to monitor. Assessment/Plan for indications treated with psychotropic medications: 1. Anxiety: clonazepam 0.125mg GT 0800 and 0.5mg GT 2000. Please see physician note regarding GDR. Please continue to monitor for falls/fractures (BEERs), dementia/delirium (BEERs), confusion. 2. Depression: sertraline 75mg GT daily. Please see physician note regarding GDR. Please continue to monitor for suicidal ideation (black box warning), falls/fractures (BEERs) and sodium (last 140mmol/L). 3. Neuropathic pain: gabapentin 300mg GT 0800/1400 and 600mg GT 2100. GDR not appropriate as this medication is being used for neuropathic pain. Please continue to monitor for falls/fractures (BEERs), renal function, confusion. Medical chart and medication regimen reviewed. The following medication irr egularities or issues were identified: None Date Date of Note: 09/23/24 Documented by User: Dr. Denzel Forbes MD 09/23/24 11:45 TCU RX Drug Regimen Review Provider Comments Provider responsibility Provider Comments to Recommendations by Pharmacy Agree
[2024-09-23] MEDS: Gabapentin 300 MG Capsule GT ×2 (10:21→13:29)
[2024-09-23] MEDS: clonazePAM 0.5 MG Tablet 0.125 MG GT (10:21)
--- NOTE | 2024-09-23 10:41 | NURSING ---
PT REFUSING THE 250 CC FLUSH AFTER BREAKFAST PER ORDER. PT STATED SHE FEELS NAUSEATED AND TO FULL AND ONLY WANTED 150 FLUSH + 30CC WITH THE MEDS. PEG PLACEMENT VERIFIED,0 RESIDUAL. FLUSHED PER PT REQUEST AND NOTIFIED SPEECH THERAPY AND DIETARY. RN AWARE
[2024-09-23 11:56] LABS: Bedside Glucose 269 mg/dL (74-106)
--- NOTE | 2024-09-23 12:30 | NS ---
09/23/2024: Call from MANNY Griffith about water flushes through the feeding tube of 250mL. Noted MICA Barillas charted on pt on 09/22/24. This RDN reviewed note and that MICA Barillas did not recommend any formula or water flushes in her note. This RDN is unsure of where order for water flushes came from. RDN called TCU back and spoke with another RN about this. RDN recommended following nursing policy for water flushes through feeding tube. Tonie Curry RDN, LD
[2024-09-23] MEDS: Glucerna Shake 120 ML LIQUID PO ×2 (13:35→21:04)
--- NOTE | 2024-09-23 16:00 | CHAPLAIN ---
Type of Pastoral Visit ___ Initial Visit ___ Follow-up Visit ___ On-call Visit ___ General Patient Visit ___ Spiritual Assessment ___ Family Conference ___ Bereavement ___ Rapid Response ___ Code Blue ___ Other (describe below) Pastoral Care Referral From ___ Patient ___ Family ___ Nurse ___ Physician ___ Business English Instructor ___ Machinist First Class ___ Other (describe below) Sacrament/Intervention ___ Active listening ___ Anointing ___ Yarsanism ___ Bereavement ___ Communion ___ Sharifa exploration ___ ___ Life review ___ Prayer ___ Reconciliation ___ Sacrament of Sick ___ Supportive presence ___ Wedding ___ Other (describe below) Pastoral Comments two attempts to visit with patient but she was sleeping at first try and then in the bathroom for second attempt
--- NOTE | 2024-09-23 16:18 | NURSING ---
UPDATED PT AND THAT A STAFF MEMBER TESTED POSITIVE FOR COVID.
[2024-09-23 16:40] LABS: Bedside Glucose 215 mg/dL (74-106)
[2024-09-23] MEDS: Gabapentin 600 MG Tablet GT (21:05)
[2024-09-23] MEDS: Acetaminophen 325 MG Tablet 650 MG GT (21:05)
[2024-09-23] MEDS: clonazePAM 0.5 MG Tablet GT (21:06)
[2024-09-23] MEDS: MENTHOL 226.8 GM JAR 1 APPLIC TOPICAL (21:08)
--- NOTE | 2024-09-23 21:17 | NURSING ---
Refused HS peg flush, too full
[2024-09-23 22:22] LABS: Bedside Glucose 264 mg/dL (74-106)
[2024-09-24] VITALS (8 sets, daily range): BP systolic 128–155; BP diastolic 56–64; PULSE 60–67; RESP 16–18; TEMP 36.1; O2SAT 92–96
[2024-09-24] MEDS: Menthol/Lanolin/Calamine/Znox 113 GM Tube 1 APPLIC TOPICAL ×2 (06:50→09:32)
[2024-09-24] MEDS: Metoprolol Tartrate 50 MG Tablet GT ×3 (06:50→21:17)
[2024-09-24] MEDS: Insulin Glargine-YFGN 100 UNIT/ML Pen 24 UNIT SC ×2 (06:50→17:07)
[2024-09-24 07:03] LABS: Bedside Glucose 174 mg/dL (74-106)
--- NOTE | 2024-09-24 09:27 | CASEMGMT ---
Social Work IDT met with patient and for care plan meeting. Discussed patient's progress in PT/OT/ST/SN. Educated to Medicare benefit and copay coverage. Pt is on for benefit. Pt's goal is to DC home with once she is at an independent level. SW will continue to follow for DC planning. Harmony Bhakta MARKETING SALES REPRESENTATIVE MONOTYPIST
[2024-09-24] MEDS: Ipratropium Bromide 0.06% NASAL SPRAY 2 SPRAY NASAL ×2 (09:29→21:22)
[2024-09-24] MEDS: Mupirocin Ointment 22gm Tube 1 APPLIC TOPICAL ×2 (09:30→21:28)
[2024-09-24] MEDS: Famotidine 20 MG Tablet 40 MG GT (09:30)
[2024-09-24] MEDS: Lisinopril 2.5 MG Tablet GT (09:31)
[2024-09-24] MEDS: Cholecalciferol (VIT D3) 25 MCG TABLET (1,000 UNITS) GT (09:31)
[2024-09-24] MEDS: Atorvastatin Calcium 40 MG Tablet GT (09:31)
[2024-09-24] MEDS: Sertraline 50 MG Tablet 75 MG GT (09:31)
[2024-09-24] MEDS: Aspirin 81 MG TAB.CHEW GT (09:32)
[2024-09-24] MEDS: Nystatin Powder 15gm Bottle 1 APPLIC TOPICAL ×2 (09:32→21:28)
[2024-09-24] MEDS: Gabapentin 300 MG Capsule GT ×2 (09:37→13:43)
[2024-09-24] MEDS: clonazePAM 0.5 MG Tablet 0.125 MG GT (09:37)
[2024-09-24] MEDS: cloNIDine HCl 0.2 MG Patch TD (09:45)
[2024-09-24] MEDS: Enoxaparin 40 MG/0.4 ML Syringe SC (09:48)
--- NOTE | 2024-09-24 09:59 | NURSING ---
REMOVED OLD CLONIDINE PATCH AND PUT NEW ON RT SHOULDER. WASTED OLD PATCH WITH RN IN NARCOTIC WASTE CONTAINER.
[2024-09-24 11:25] LABS: Bedside Glucose 272 mg/dL (74-106)
--- NOTE | 2024-09-24 16:19 | NURSING ---
HEART MONITOR STILL CHARGED, OK PER SPEECH TO GIVE PILLS CRUSHED IN PUDDING/SMALL BITES CHOCOLATE ONLY PER PT. MOUTH CARE GIVEN TODAY. SEE NEW DIET ORDER.
[2024-09-24 16:22] LABS: Bedside Glucose 221 mg/dL (74-106)
[2024-09-24] MEDS: clonazePAM 0.5 MG Tablet GT (21:17)
[2024-09-24] MEDS: Acetaminophen 325 MG Tablet 650 MG GT (21:18)
[2024-09-24] MEDS: Gabapentin 600 MG Tablet GT (21:18)
[2024-09-24 21:20] LABS: Bedside Glucose 231 mg/dL (74-106)
--- NOTE | 2024-09-24 21:29 | NURSING ---
Jose water protocol administered as ordered at med pass, patient given ice chips.
[2024-09-24] MEDS: MENTHOL 226.8 GM JAR 1 APPLIC TOPICAL (21:33)
[2024-09-25 05:48] VITALS: BP 133/53; PULSE 56
[2024-09-25] MEDS: Metoprolol Tartrate 50 MG Tablet GT ×3 (05:48→22:58)
[2024-09-25] MEDS: Menthol/Lanolin/Calamine/Znox 113 GM Tube 1 APPLIC TOPICAL ×2 (05:48→23:14)
[2024-09-25] MEDS: Insulin Glargine-YFGN 100 UNIT/ML Pen 24 UNIT SC ×2 (05:55→17:14)
[2024-09-25 06:17] LABS: Bedside Glucose 152 mg/dL (74-106)
[2024-09-25] MEDS: Aspirin 81 MG TAB.CHEW GT (10:12)
[2024-09-25] MEDS: Ipratropium Bromide 0.06% NASAL SPRAY 2 SPRAY NASAL ×2 (10:14→22:56)
[2024-09-25] MEDS: Mupirocin Ointment 22gm Tube 1 APPLIC TOPICAL ×2 (10:15→22:56)
[2024-09-25] MEDS: Atorvastatin Calcium 40 MG Tablet GT (10:16)
[2024-09-25] MEDS: Enoxaparin 40 MG/0.4 ML Syringe SC (10:16)
[2024-09-25] MEDS: Lisinopril 2.5 MG Tablet GT (10:17)
[2024-09-25] MEDS: Cholecalciferol (VIT D3) 25 MCG TABLET (1,000 UNITS) GT (10:17)
[2024-09-25] MEDS: Nystatin Powder 15gm Bottle 1 APPLIC TOPICAL ×2 (10:17→22:57)
[2024-09-25] MEDS: Famotidine 20 MG Tablet 40 MG GT (10:17)
[2024-09-25] MEDS: Sertraline 50 MG Tablet 75 MG GT (10:18)
[2024-09-25] MEDS: Gabapentin 300 MG Capsule GT ×2 (10:25→13:47)
[2024-09-25] MEDS: clonazePAM 0.5 MG Tablet 0.125 MG GT (10:25)
[2024-09-25 10:43] VITALS: BP 146/66; PULSE 62; RESP 18; O2SAT 95
[2024-09-25 11:22] LABS: Bedside Glucose 219 mg/dL (74-106)
--- NOTE | 2024-09-25 13:46 | MDS.RN ---
MDS pain assessent complete.
[2024-09-25 13:49] VITALS: BP 139/58; PULSE 63
[2024-09-25 13:57] VITALS: BP 139/58; PULSE 63; RESP 18; TEMP 36.6; O2SAT 93
[2024-09-25 14:00] VITALS: PULSE 63; RESP 18; O2SAT 93
[2024-09-25 16:27] LABS: Bedside Glucose 293 mg/dL (74-106)
--- NOTE | 2024-09-25 16:56 | NURSING ---
HEART MONITOR STRIP CHANGED DUE TO IT COMING OFF. HEART MONITOR CLIPPED ON AND GREEN LIGHT BLINKS. PEG SITE AREA CLEANED AND DRESSING DONE PER ORDERS PT TOLERATED WELL. PT CONTINUES TO DO WELL TAKING CRUSHED MEDS IN CHOCOLATE PUDDING WITH SMALL BITES. OK PER SPEECH. MOUTH CARE GIVEN TODAY. PT BLOOD SUGARS DO GO UP DURING THE DAY DUE TO SPEECH THERAPY WORKING WITH PT WITH FOOD. PT AND OK WITH IT AND DONT WANT ANY EXTRA INSULIN DO TO PT BLOOD SUGAR AT TIMES GOS LOW. RN AWARE
[2024-09-25 21:30] LABS: Bedside Glucose 285 mg/dL (74-106)
[2024-09-25] MEDS: clonazePAM 0.5 MG Tablet GT (22:55)
[2024-09-25] MEDS: Gabapentin 600 MG Tablet GT (22:55)
[2024-09-25 22:58] VITALS: BP 159/60; PULSE 61
[2024-09-25] MEDS: Acetaminophen 325 MG Tablet 650 MG GT (23:00)
[2024-09-25] MEDS: MENTHOL 226.8 GM JAR 1 APPLIC TOPICAL (23:14)
[2024-09-26] VITALS (8 sets, daily range): BP systolic 121–165; BP diastolic 52–69; PULSE 61–67; RESP 18; TEMP 36.5; O2SAT 97
[2024-09-26 06:13] LABS: Bedside Glucose 183 mg/dL (74-106)
[2024-09-26] MEDS: Metoprolol Tartrate 50 MG Tablet GT ×3 (06:16→21:34)
[2024-09-26] MEDS: Insulin Glargine-YFGN 100 UNIT/ML Pen 24 UNIT SC ×2 (06:20→17:53)
[2024-09-26] MEDS: Menthol/Lanolin/Calamine/Znox 113 GM Tube 1 APPLIC TOPICAL ×2 (06:21→21:33)
[2024-09-26] MEDS: Cholecalciferol (VIT D3) 25 MCG TABLET (1,000 UNITS) GT (08:50)
[2024-09-26] MEDS: Sertraline 50 MG Tablet 75 MG GT (08:50)
[2024-09-26] MEDS: Gabapentin 300 MG Capsule GT ×2 (08:50→13:08)
[2024-09-26] MEDS: Aspirin 81 MG TAB.CHEW GT (08:50)
[2024-09-26] MEDS: Famotidine 20 MG Tablet 40 MG GT (08:51)
[2024-09-26] MEDS: clonazePAM 0.5 MG Tablet 0.125 MG GT (08:51)
[2024-09-26] MEDS: Lisinopril 2.5 MG Tablet GT (08:51)
[2024-09-26] MEDS: Atorvastatin Calcium 40 MG Tablet GT (08:51)
[2024-09-26] MEDS: Mupirocin Ointment 22gm Tube 1 APPLIC TOPICAL ×2 (08:52→21:31)
[2024-09-26] MEDS: Enoxaparin 40 MG/0.4 ML Syringe SC (08:52)
[2024-09-26] MEDS: Nystatin Powder 15gm Bottle 1 APPLIC TOPICAL ×2 (08:52→21:35)
[2024-09-26] MEDS: Ipratropium Bromide 0.06% NASAL SPRAY 2 SPRAY NASAL ×2 (08:52→21:30)
[2024-09-26 11:21] LABS: Bedside Glucose 277 mg/dL (74-106)
--- NOTE | 2024-09-26 13:56 | NURSING ---
Dressing to peg tub changed per orders. Scant amount of drainage noted to old bandage. Bacitracin applied to wound site. DCD applied. No concerns noted/voiced.
--- NOTE | 2024-09-26 14:14 | CASEMGMT ---
BIMS () and PHQ2 () interview completed on this date for MDS assessment. ALEXANDRIA Aguillon
--- NOTE | 2024-09-26 14:51 | CHAPLAIN ---
Type of Pastoral Visit ___ Initial Visit _x_ Follow-up Visit ___ On-call Visit ___ General Patient Visit ___ Spiritual Assessment ___ Family Conference ___ Bereavement ___ Rapid Response ___ Code Blue ___ Other (describe below) Pastoral Care Referral From _x__ Patient _x__ Family ___ Nurse ___ Physician ___ Acquisitions Analyst ___ Mechatronics Engineer ___ Other (describe below) Sacrament/Intervention _x__ Active listening ___ Anointing ___ Religious ___ Bereavement ___ Communion ___ Sharifa exploration ___ ___ Life review _x__ Prayer ___ Reconciliation ___ Sacrament of Sick _x__ Supportive presence ___ Wedding ___ Other (describe below) Pastoral Comments this warm in has been following this patient for weeks as she has been admitted in various units; pt and spouse are in room together; both are welcoming and talkative; pt expresses gladness that she has passed a swallow test and can now eat solids; pt has more testing to be done but expresses some hopefulness; pt states again that she really wants to get home soon; pt acknowledges great care here; pt and spouse welcome prayers and presence
[2024-09-26 16:23] LABS: Bedside Glucose 304 mg/dL (74-106)
[2024-09-26] MEDS: clonazePAM 0.5 MG Tablet GT (21:29)
[2024-09-26] MEDS: Gabapentin 600 MG Tablet GT (21:30)
[2024-09-26 21:37] LABS: Bedside Glucose 330 mg/dL (74-106)
[2024-09-26] MEDS: Acetaminophen 325 MG Tablet 650 MG GT (21:40)
[2024-09-27 05:52] VITALS: BP 149/60; PULSE 60
[2024-09-27 05:56] VITALS: BP 149/60; PULSE 60
[2024-09-27] MEDS: Menthol/Lanolin/Calamine/Znox 113 GM Tube 1 APPLIC TOPICAL ×2 (05:56→22:00)
[2024-09-27] MEDS: Metoprolol Tartrate 50 MG Tablet GT ×3 (05:56→21:53)
[2024-09-27] MEDS: Insulin Glargine-YFGN 100 UNIT/ML Pen 24 UNIT SC ×2 (05:57→17:32)
[2024-09-27 06:20] LABS: Bedside Glucose 223 mg/dL (74-106)
[2024-09-27 08:19] VITALS: BP 142/67; PULSE 61; RESP 18; TEMP 36.7; O2SAT 96
[2024-09-27] MEDS: Enoxaparin 40 MG/0.4 ML Syringe SC (10:00)
[2024-09-27] MEDS: Gabapentin 300 MG Capsule GT ×2 (10:00→14:32)
[2024-09-27] MEDS: Atorvastatin Calcium 40 MG Tablet GT (10:01)
[2024-09-27] MEDS: Famotidine 20 MG Tablet 40 MG GT (10:01)
[2024-09-27] MEDS: Cholecalciferol (VIT D3) 25 MCG TABLET (1,000 UNITS) GT (10:01)
[2024-09-27] MEDS: Sertraline 50 MG Tablet 75 MG GT (10:01)
[2024-09-27] MEDS: Mupirocin Ointment 22gm Tube 1 APPLIC TOPICAL ×2 (10:02→21:54)
[2024-09-27] MEDS: Lisinopril 2.5 MG Tablet GT (10:02)
[2024-09-27] MEDS: Aspirin 81 MG TAB.CHEW GT (10:02)
[2024-09-27] MEDS: Nystatin Powder 15gm Bottle 1 APPLIC TOPICAL ×2 (10:03→21:59)
[2024-09-27] MEDS: clonazePAM 0.5 MG Tablet 0.125 MG GT (10:14)
[2024-09-27 11:40] LABS: Bedside Glucose 319 mg/dL (74-106)
[2024-09-27] MEDS: Insulin Lispro 100 UNIT/ML INSULN.PEN 10 UNIT SC ×2 (11:49→17:32)
[2024-09-27 14:32] VITALS: BP 128/69; PULSE 63
[2024-09-27] MEDS: Glucerna Shake 120 ML LIQUID PO ×2 (14:32→21:54)
[2024-09-27] MEDS: Acetaminophen 325 MG Tablet 650 MG GT ×2 (14:37→21:58)
[2024-09-27 16:32] LABS: Bedside Glucose 198 mg/dL (74-106)
[2024-09-27 21:33] LABS: Bedside Glucose 178 mg/dL (74-106)
[2024-09-27 21:53] VITALS: BP 129/67; PULSE 59
[2024-09-27] MEDS: clonazePAM 0.5 MG Tablet GT (21:54)
[2024-09-27] MEDS: Gabapentin 600 MG Tablet GT (21:55)
[2024-09-27] MEDS: MENTHOL 226.8 GM JAR 1 APPLIC TOPICAL (22:11)
[2024-09-28 05:00] VITALS: RESP 18
[2024-09-28 06:19] LABS: Bedside Glucose 146 mg/dL (74-106)
[2024-09-28 06:23] VITALS: BP 144/58; PULSE 58
[2024-09-28] MEDS: Metoprolol Tartrate 50 MG Tablet GT ×2 (06:23→14:27)
[2024-09-28] MEDS: Menthol/Lanolin/Calamine/Znox 113 GM Tube 1 APPLIC TOPICAL ×2 (06:24→21:45)
[2024-09-28] MEDS: Mupirocin Ointment 22gm Tube 1 APPLIC TOPICAL ×2 (06:31→21:44)
[2024-09-28] MEDS: Insulin Glargine-YFGN 100 UNIT/ML Pen 24 UNIT SC ×2 (06:33→17:53)
[2024-09-28] MEDS: Insulin Lispro 100 UNIT/ML INSULN.PEN 10 UNIT SC ×3 (08:23→17:53)
[2024-09-28] MEDS: Aspirin 81 MG TAB.CHEW GT (08:25)
[2024-09-28] MEDS: Enoxaparin 40 MG/0.4 ML Syringe SC (08:26)
[2024-09-28] MEDS: Lisinopril 2.5 MG Tablet GT (08:26)
[2024-09-28] MEDS: Famotidine 20 MG Tablet 40 MG GT (08:26)
[2024-09-28] MEDS: Cholecalciferol (VIT D3) 25 MCG TABLET (1,000 UNITS) GT (08:26)
[2024-09-28] MEDS: Sertraline 50 MG Tablet 75 MG GT (08:27)
[2024-09-28] MEDS: Gabapentin 300 MG Capsule GT ×2 (08:28→14:31)
[2024-09-28] MEDS: Nystatin Powder 15gm Bottle 1 APPLIC TOPICAL ×2 (08:28→21:45)
[2024-09-28] MEDS: Ipratropium Bromide 0.06% NASAL SPRAY 2 SPRAY NASAL ×2 (08:28→21:43)
[2024-09-28] MEDS: clonazePAM 0.5 MG Tablet 0.125 MG GT (08:39)
[2024-09-28 11:43] LABS: Bedside Glucose 254 mg/dL (74-106)
[2024-09-28] MEDS: Atorvastatin Calcium 40 MG Tablet GT (12:06)
[2024-09-28 14:27] VITALS: BP 121/62; PULSE 61
[2024-09-28 15:49] VITALS: BP 121/62; PULSE 61; RESP 16; TEMP 36.6; O2SAT 97
[2024-09-28 16:49] LABS: Bedside Glucose 187 mg/dL (74-106)
[2024-09-28] MEDS: Gabapentin 600 MG Tablet PO (21:41)
[2024-09-28] MEDS: clonazePAM 0.5 MG Tablet PO (21:41)
[2024-09-28 21:43] VITALS: BP 140/68; PULSE 98
[2024-09-28] MEDS: Metoprolol Tartrate 50 MG Tablet PO (21:43)
[2024-09-28] MEDS: MENTHOL 226.8 GM JAR 1 APPLIC TOPICAL (21:44)
[2024-09-28] MEDS: Acetaminophen 325 MG Tablet 650 MG PO (21:47)
[2024-09-28 22:19] LABS: Bedside Glucose 180 mg/dL (74-106)
[2024-09-29 06:12] VITALS: BP 123/56; PULSE 85
[2024-09-29] MEDS: Insulin Glargine-YFGN 100 UNIT/ML Pen 24 UNIT SC ×2 (06:12→18:02)
[2024-09-29] MEDS: Metoprolol Tartrate 50 MG Tablet PO ×3 (06:12→21:22)
[2024-09-29] MEDS: Menthol/Lanolin/Calamine/Znox 113 GM Tube 1 APPLIC TOPICAL ×2 (06:14→21:21)
[2024-09-29 06:15] LABS: Basophil# 0.03 X10^3/uL; Basophil% 0.4 % (0-1); Eosinophil# 0.31 X10^3/uL; Eosinophils% 4.1 % (0-5); Hematocrit 37.7 % (37-47); Hemoglobin 12.4 g/dL (12.0-15.0); Lymphocyte % 31.7 % (19-41); Mean Corp Hgb Conc 32.9 g/dL (32-36); Mean Corpuscular Hgb 30.5 pg (27.0-32.0); Mean Corpuscular Volume 92.9 fL (81-99); Mean Platelet Vol. 10.7 fl (6.2-12.0); Monocyte# 0.76 X10^3/uL; Monocyte% 10.1 % (0-10); NRBC Flagged by Analyzer 0 % (0-5); Neutrophil # 4.03 X10^3/uL (2.7-7.7); Neutrophil % 53.3 % (47-70); Platelet Count 229 K/mm3 (150-450); RBC Distribution Width CV 12.8 % (11.6-14.6); RBC Distribution Width SD 43.6 fl (35.1-43.9); Red Blood Count 4.06 M/mm3 (4.2-5.4); White Blood Count 7.6 K/mm3 (4.4-11.0)
[2024-09-29 06:31] LABS: Bedside Glucose 191 mg/dL (74-106)
[2024-09-29 06:38] LABS: Anion Gap 7 (5-15); BUN 18 mg/dL (7-18); BUN/Creat Ratio 21.9 RATIO (10-20); Calcium,Total 9.1 mg/dL (8.5-10.1); Chloride 105 mmol/L (98-107); Creatinine, Serum 0.82 mg/dL (0.55-1.02); EST Glomerular Filtration Rate 71 mL/min (>60); Est Glom Filt Rate - Afr Amer 86 mL/min (>60); Estimated Creatinine Clearance 48.54 ml/min; Glucose 200 mg/dL (74-106); Potassium 3.8 mmol/L (3.5-5.1); Sodium Level 138 mmol/L (136-145)
[2024-09-29] MEDS: Insulin Lispro 100 UNIT/ML INSULN.PEN 10 UNIT SC ×3 (08:49→18:02)
[2024-09-29] MEDS: Aspirin 81 MG TAB.CHEW PO (08:50)
[2024-09-29] MEDS: Mupirocin Ointment 22gm Tube 1 APPLIC TOPICAL ×2 (08:50→21:19)
[2024-09-29] MEDS: Ipratropium Bromide 0.06% NASAL SPRAY 2 SPRAY NASAL ×2 (08:50→21:17)
[2024-09-29] MEDS: Famotidine 20 MG Tablet 40 MG PO (08:51)
[2024-09-29] MEDS: Enoxaparin 40 MG/0.4 ML Syringe SC (08:51)
[2024-09-29] MEDS: Atorvastatin Calcium 40 MG Tablet PO (08:51)
[2024-09-29] MEDS: Cholecalciferol (VIT D3) 25 MCG TABLET (1,000 UNITS) PO (08:51)
[2024-09-29] MEDS: Sertraline 50 MG Tablet 75 MG PO (08:52)
[2024-09-29] MEDS: Lisinopril 2.5 MG Tablet PO (08:52)
[2024-09-29] MEDS: Nystatin Powder 15gm Bottle 1 APPLIC TOPICAL ×2 (09:10→21:22)
[2024-09-29] MEDS: Gabapentin 300 MG Capsule PO ×2 (09:10→13:19)
[2024-09-29] MEDS: clonazePAM 0.5 MG Tablet 0.125 MG PO (09:10)
--- NOTE | 2024-09-29 09:10 | NURSING ---
Striping Machine Operator Note; MDS for 09/28/2024 Complete
[2024-09-29 11:48] LABS: Bedside Glucose 244 mg/dL (74-106)
[2024-09-29] MEDS: Tuberculin,Purif.prot.deriv. 50 TU/ML Vial 0.1 ML ID (11:49)
[2024-09-29 13:20] VITALS: BP 139/71; PULSE 74
[2024-09-29] MEDS: Glucerna Shake 120 ML LIQUID PO (13:20)
[2024-09-29 16:00] VITALS: BP 108/62; PULSE 68; RESP 18; TEMP 37; O2SAT 96
[2024-09-29 16:55] LABS: Bedside Glucose 140 mg/dL (74-106)
[2024-09-29 20:00] VITALS: PULSE 66; O2SAT 97
[2024-09-29 21:11] VITALS: BP 144/63; PULSE 66
[2024-09-29] MEDS: clonazePAM 0.5 MG Tablet PO (21:16)
[2024-09-29 21:22] VITALS: BP 144/63; PULSE 66
[2024-09-29] MEDS: Acetaminophen 325 MG Tablet 650 MG PO (21:29)
[2024-09-29] MEDS: Gabapentin 600 MG Tablet PO (21:29)
[2024-09-29 21:31] LABS: Bedside Glucose 171 mg/dL (74-106)
[2024-09-29] MEDS: MENTHOL 226.8 GM JAR 1 APPLIC TOPICAL (21:38)
--- NOTE | 2024-09-29 21:40 | NURSING ---
Patient refused SCD's at this time.
[2024-09-30] VITALS (9 sets, daily range): BP systolic 128–145; BP diastolic 55–78; PULSE 56–69; RESP 18; TEMP 35.9; O2SAT 94–95; BMI 27.9
[2024-09-30] MEDS: Menthol/Lanolin/Calamine/Znox 113 GM Tube 1 APPLIC TOPICAL ×2 (06:15→21:16)
[2024-09-30] MEDS: Insulin Glargine-YFGN 100 UNIT/ML Pen 24 UNIT SC ×2 (06:17→17:48)
[2024-09-30] MEDS: Metoprolol Tartrate 50 MG Tablet PO ×3 (06:22→21:06)
[2024-09-30 06:42] LABS: Bedside Glucose 181 mg/dL (74-106)
[2024-09-30] MEDS: Insulin Lispro 100 UNIT/ML INSULN.PEN 10 UNIT SC ×3 (07:53→17:47)
[2024-09-30] MEDS: Mupirocin Ointment 22gm Tube 1 APPLIC TOPICAL ×2 (07:56→20:58)
[2024-09-30] MEDS: Famotidine 20 MG Tablet 40 MG PO (07:57)
[2024-09-30] MEDS: Atorvastatin Calcium 40 MG Tablet PO (07:57)
[2024-09-30] MEDS: Ipratropium Bromide 0.06% NASAL SPRAY 2 SPRAY NASAL ×2 (07:57→21:05)
[2024-09-30] MEDS: Lisinopril 2.5 MG Tablet PO (07:58)
[2024-09-30] MEDS: Sertraline 50 MG Tablet 75 MG PO (07:58)
[2024-09-30] MEDS: Cholecalciferol (VIT D3) 25 MCG TABLET (1,000 UNITS) PO (07:58)
[2024-09-30] MEDS: Aspirin 81 MG TAB.CHEW PO (07:59)
[2024-09-30] MEDS: Nystatin Powder 15gm Bottle 1 APPLIC TOPICAL ×2 (07:59→21:15)
[2024-09-30] MEDS: clonazePAM 0.5 MG Tablet 0.125 MG PO (08:06)
[2024-09-30] MEDS: Gabapentin 300 MG Capsule PO ×2 (08:06→13:27)
[2024-09-30] MEDS: Enoxaparin 40 MG/0.4 ML Syringe SC (08:10)
[2024-09-30 12:26] LABS: Bedside Glucose 233 mg/dL (74-106)
--- NOTE | 2024-09-30 12:36 | EX.PCM.CON.S ---
Assessment & Plan Assessment/Plan (1) CVA (cerebral vascular accident): QUALIFIERS: CVA mechanism: unspecified Qualified Code(s): I63.9 - Cerebral infarction, unspecified PLAN: Plan The patient is a 84-year-old female in need of a PEG tube to be removed prior to discharge from TCU. PEG tube was successfully removed. I did reassure her that it is not uncommon to have some drainage from the site for a day or 2 but this should eventually stop. She tolerated the procedure well. Follow-up will be as needed. Please contact us if any further issues or concerns arise HPI Consult Data Date of Consult: 09/30/24 HPI Narrative Reason for Consultation: PEG tube removal HPI Narrative: CHRISTINA IVORY, is a 84 F who has been admitted to TCU following presumed CVA. During recent hospitalization a PEG tube was placed about a month ago. Patient is doing well and has not been using PEG tube in any way recently. 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 Lumbar radiculopathy, chronic Carotid artery stenosis Abnormal urinalysis Facial droop Expressive aphasia Grade I diastolic dysfunction Debility Carcinoid bronchial adenoma of left lung Herniation of intervertebral disc at L3-L4 level Lumbar scoliosis Abnormal finding on thyroid function test Hypoxia Chronic prescription benzodiazepine use Acute ischemic stroke Wears glasses MRSA infection History of Clostridium difficile infection Cancer Thyroid disease Achilles tendinitis Insulin dependent diabetes mellitus Walker as ambulation aid Arthritis Bladder disease Easy bruising Injury of back Back pain Unsteady gait Dietary restriction History of hiatal hernia Gastric reflux Non-smoker Chronic cough Hoarseness Shortness of breath on exertion Leg cramps History of edema History of echocardiogram History of stress test Overweight (BMI 25.0-29.9) Migraine without aura, not intractable, without status migrainosus 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 disease Macular degeneration 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 Acute gastritis Enlargement of lymph nodes Migraine Restless legs GERD (gastroesophageal reflux disease) Essential (primary) hypertension Acute chest pain Home Medications ?Medication ?Instructions ?Recorded ?Last Taken ?Type albuterol sulfate 90 mcg/actuation 2 puff inhalation Q6H PRN 07/26/23 Unknown Rx aerosol inhaler shortness of breath or wheezing #6.7 grams acetaminophen 325 mg tablet 650 mg (2 x 325 mg) G-tube Q4H PRN 08/29/24 09/20/24 Rx PRN Pain 1-10 Or Fever>99.6 #0 tabs aspirin 81 mg chewable tablet 81 mg G-tube BREAKFAST Heart 08/29/24 09/21/24 Rx health #0 tabs atorvastatin 40 mg tablet 40 mg G-tube DAILY Cholesterol #0 08/29/24 09/21/24 Rx tabs cholecalciferol (vitamin D3) 25 25 mcg G-tube DAILY supplement #0 08/29/24 09/21/24 Rx mcg (1,000 unit) tablet tabs menthol 2 % topical gel (Blue Gel) 1 applic topical TID PRN PRN Pain 08/29/24 Unknown Rx 1-10/Inflammation #0 grams IV with Additives As Directed mls/hr IV PRN 09/19/24 Unknown Rx Hypoglycemia bisacodyl 10 mg rectal suppository 10 mg UT X1 PRN Constipation #1 ea 09/19/24 08/30/24 Rx clonazepam 0.5 mg tablet 0.125 mg (1/4 x 0.5 mg) PO 0800 09/19/24 09/21/24 Rx mood #1 TAB clonazepam 0.5 mg tablet 0.5 mg PO 1999 mood #1 TAB 09/19/24 09/20/24 Rx clonidine 0.2 mg/24 hr weekly 0.2 mg transdermal Q7D blood 09/19/24 09/17/24 Rx transdermal patch pressure #1 ea clopidogrel 75 mg tablet 75 mg G-tube DAILY Blood thinner 09/19/24 08/29/24 Rx #1 TAB enoxaparin 40 mg/0.4 mL 40 mg (0.4 mL) subcut DAILY Blood 09/19/24 09/21/24 Rx subcutaneous syringe thinner #1 mL famotidine 20 mg tablet 40 mg (2 x 20 mg) G-tube DAILY 09/19/24 09/21/24 Rx stomach #1 TAB gabapentin 300 mg capsule 300 mg G-tube 0800,1400 nerve pain 09/19/24 09/21/24 Rx #1 cap gabapentin 400 mg capsule 400 mg PO 2100 nerve pain #1 cap 09/19/24 09/20/24 Rx glucagon 1 mg solution for 1 mg IM X1 PRN Hypoglycemia #1 ea 09/19/24 09/09/24 Rx injection (Glucagon Emergency Kit) insulin glargine-yfgn 100 unit/mL 24 unit (0.24 mL) subcut 09/19/24 09/21/24 Rx (3 mL) subcutaneous pen BID@1800,0600 blood sugar #1 mL insulin lispro 100 unit/mL 10 unit (0.1 mL) subcut 1700 blood 09/19/24 09/14/24 Rx subcutaneous pen (Humalog KwikPen sugar #15 mL (U-100) Insulin) insulin lispro 100 unit/mL 14 unit (0.14 mL) subcut 1200,1700 09/19/24 09/21/24 Rx subcutaneous pen (Humalog KwikPen blood sugar #1 mL (U-100) Insulin) insulin lispro 100 unit/mL 20 unit (0.2 mL) subcut BREAKFAST 09/19/24 09/21/24 Rx subcutaneous pen (Humalog KwikPen blood sugar #1 mL (U-100) Insulin) insulin lispro 100 unit/mL See Protocol subcut TIDCM blood 09/19/24 09/21/24 Rx subcutaneous pen (Humalog KwikPen sugar #1 mL (U-100) Insulin) ipratropium bromide 42 mcg (0.06 2 spray NASAL BID congestion #1 mL 09/19/24 09/21/24 Rx %) nasal spray lisinopril 2.5 mg tablet 2.5 mg PO DAILY blood pressure #1 09/19/24 09/21/24 Rx TAB loperamide 2 mg capsule 2 mg PO Q4H PRN PRN Diarrhea #1 cap 09/19/24 09/17/24 Rx magnesium hydroxide 400 mg/5 mL 30 ml PO X1 PRN Constipation #1 mL 09/19/24 08/30/24 Rx oral suspension metoprolol tartrate 50 mg tablet 50 mg PO TID heart #1 TAB 09/19/24 09/21/24 Rx mupirocin 2 % topical ointment 1 applic topical BID see MD #1 g 09/19/24 09/21/24 Rx nutrition tx glu 120 ml PO 1400,2200 supplement #1 09/19/24 09/21/24 Rx intol,lac-free,soy-fiber 0.06 mL gram-1.2 kcal/mL liquid (Glucerna 1.2 Josr) nystatin 100,000 unit/gram topical 1 applic topical BID redness #1 g 09/19/24 09/21/24 Rx powder ([facility]) sertraline 50 mg tablet 75 mg (1.5 x 50 mg) PO DAILY mood 09/19/24 09/21/24 Rx #1 TAB Allergy/AdvReac Type Severity Reaction Status Date / Time shrimp Allergy Unknown unknown Verified 08/27/24 12:01 adhesive tape Allergy Hives/Rash Verified 08/27/24 12:01 ciprofloxacin (From Cipro) Allergy Photosensitivity Verified 08/27/24 12:01 & dermatitis pioglitazone (From Actos) Allergy Unknown Verified 08/27/24 12:01 codeine AdvReac Upset Verified 08/27/24 12:01 Stomach ibandronate sodium (From AdvReac GI Verified 08/27/24 12:01 Boniva) upset/esophageal burning ibuprofen AdvReac GI upset Verified 08/27/24 12:01 lansoprazole AdvReac Diarrhea Verified 08/27/24 12:01 metformin AdvReac Diarrhea Verified 08/27/24 12:01 miconazole (From Neosporin AdvReac Rash/Bliste Verified 08/27/24 12:01 AF) rs nabumetone (From Relafen) AdvReac GI upset Verified 08/27/24 12:01 pantoprazole (From Protonix) AdvReac Diarrhea Verified 08/27/24 12:01 sucralfate (From Carafate) AdvReac feels Verified 08/27/24 12:01 poorly Family History Father Lung cancer Colon cancer Mother Mesothelioma Hypertension Grandmother Heart disease Surgical History S/P lobectomy of lung Hx of colonoscopy Hx of right cataract extraction Hx of left cataract extraction History of lobectomy of lung History of lung biopsy H/O endoscopy Spinal injections S/P rotator cuff repair Social History household members: spouse housing: house pets and animals: No Smoking Status: Never smoker second hand exposure: No alcohol intake: current alcohol intake frequency: holidays/special occasions only substance use type: does not use ROS Eyes Eyes: Reports systems reviewed and no addt'l complaints, except as documented ENT HEENT: Reports systems reviewed and no addt'l complaints, except as documented Cardiovascular Cardiovascular: Reports systems reviewed and no addt'l complaints, except as documented Respiratory/Chest Respiratory/Chest: Reports systems reviewed and no addt'l complaints, except as documented Gastrointestinal Gastrointestinal: Reports systems reviewed and no addt'l complaints, except as documented Genitourinary Genitourinary: Reports systems reviewed and no addt'l complaints, except as documented Musculoskeletal Musculoskeletal: Reports systems reviewed and no addt'l complaints, except as documented Physical Exam Const alert, oriented x3 and no apparent distress HEENT normocephalic Eyes PERRL GI GI Narrative: Abdomen is soft, nontender nondistended. PEG tube was in place. This was successfully removed without difficulty. A gauze dressing was applied Lab / Micro Data 09/29/24 05:25 09/29/24 05:25 Labs: Laboratory Results - last 24 hr 09/29/24 16:33: POC Glucose 140 H 09/29/24 21:13: POC Glucose 171 H 09/30/24 05:58: POC Glucose 181 H 09/30/24 12:08: POC Glucose 233 H Charges/Coding Visit Charges Inpatient E&M: 01371 Init Hosp L2
--- NOTE | 2024-09-30 14:28 | NURSING ---
CLONIDINE PATCH VERIFIED TO PT RT SHOULDER. HEART MONITOR BLINKING GREEN AND STILL CHARGED. AT 1230 CAME TO PT ROOM AND REMOVED PEG TUBE. PLACED DRY DRESSING TO SITE. RN AWARE
--- NOTE | 2024-09-30 15:01 | CASEMGMT ---
Social Work Pt's dtr, Nargis, presented to this worker's office requesting up on pt's DC. Dtr is visiting from [place] and plans to return during her work break starting October 18, and will be able to stay with pt for about 1-2 weeks. SW reviewed updates from [facility] on recommendations for assistance in the home. Pt is ambulating and transferring well; steps Spencer; LE Spencer; however, toileting tasks are modA d/t to incontinence. Staff collectively noted that although is present during therapy sessions, he is not hands on, nor takes the initiative to asking pt about toileting needs. Dtr confirms that is husbands personality and unsure he could care for toileting needs. SW explained pt has been incontinent and was reported to and family during RU Team meetings, and unsure if it will resolve with time. SW explained pt would need aide assistance in the home at minimum every two hours to provide personal care d/t incontinent episodes, and additional assistance with morning and evening care. Dtr expressed understanding. SW provided resources and further explanation between skilled and nonskilled HHC with insurance coverage vs OOP cost. SW offered for family to encourage to be more hands-on during therapy sessions to ensure assistance can be provided at home. Dtr agreed and converse with siblings. IDT agreed to DC 10/18 or prior. Dtr to finalize plans with family and will notify this worker. Dtr appreciative. SW will continue to follow. Harmony Bhakta HELICOPTER PILOT INSTRUCTOR TERMITE CONTROL SERVICER
[2024-09-30 16:25] LABS: Bedside Glucose 199 mg/dL (74-106)
[2024-09-30] MEDS: MENTHOL 226.8 GM JAR 1 APPLIC TOPICAL (20:58)
[2024-09-30] MEDS: Acetaminophen 325 MG Tablet 650 MG PO (21:04)
[2024-09-30] MEDS: clonazePAM 0.5 MG Tablet PO (21:04)
[2024-09-30] MEDS: Gabapentin 600 MG Tablet PO (21:05)
[2024-09-30 21:19] LABS: Bedside Glucose 187 mg/dL (74-106)
[2024-10-01] MEDS: Insulin Glargine-YFGN 100 UNIT/ML Pen 24 UNIT SC ×2 (05:51→17:53)
[2024-10-01] MEDS: Menthol/Lanolin/Calamine/Znox 113 GM Tube 1 APPLIC TOPICAL ×2 (05:52→09:13)
[2024-10-01 05:56] VITALS: BP 128/60; PULSE 58
[2024-10-01] MEDS: Metoprolol Tartrate 50 MG Tablet PO ×3 (05:56→21:01)
[2024-10-01 06:01] VITALS: BP 128/60; PULSE 58
[2024-10-01 06:10] LABS: Bedside Glucose 172 mg/dL (74-106)
[2024-10-01] MEDS: Aspirin 81 MG TAB.CHEW PO (08:53)
[2024-10-01] MEDS: Insulin Lispro 100 UNIT/ML INSULN.PEN 10 UNIT SC ×3 (08:53→17:52)
[2024-10-01] MEDS: clonazePAM 0.5 MG Tablet 0.125 MG PO (08:54)
[2024-10-01] MEDS: Gabapentin 300 MG Capsule PO ×2 (08:54→14:03)
[2024-10-01] MEDS: Ipratropium Bromide 0.06% NASAL SPRAY 2 SPRAY NASAL ×2 (08:54→21:00)
[2024-10-01] MEDS: cloNIDine HCl 0.2 MG Patch TD (08:55)
[2024-10-01] MEDS: Mupirocin Ointment 22gm Tube 1 APPLIC TOPICAL ×2 (08:55→21:00)
[2024-10-01] MEDS: Sertraline 50 MG Tablet 75 MG PO (08:56)
[2024-10-01] MEDS: Lisinopril 2.5 MG Tablet PO (08:56)
[2024-10-01] MEDS: Enoxaparin 40 MG/0.4 ML Syringe SC (08:56)
[2024-10-01] MEDS: Cholecalciferol (VIT D3) 25 MCG TABLET (1,000 UNITS) PO (08:56)
[2024-10-01] MEDS: Atorvastatin Calcium 40 MG Tablet PO (08:56)
[2024-10-01] MEDS: Famotidine 20 MG Tablet 40 MG PO (08:56)
[2024-10-01] MEDS: Acetaminophen 325 MG Tablet 650 MG PO ×2 (08:57→20:59)
[2024-10-01] MEDS: Nystatin Powder 15gm Bottle 1 APPLIC TOPICAL ×2 (09:13→21:01)
[2024-10-01 10:00] VITALS: BP 133/66; PULSE 74; RESP 18; TEMP 35.9; O2SAT 96
[2024-10-01 12:07] LABS: Bedside Glucose 253 mg/dL (74-106)
--- NOTE | 2024-10-01 12:45 | SP.FEES_ITS ---
FEES Patient Information Date of Evaluation: 09/30/24 Time of Evaluation: 14:00 Diagnosis: CVA I63.9; Dysphagia R13.10 Referring Physician: Denzel Forbes Chi Staff Providing this Care/Treatment:: MERCED Direct Billable Minutes: 120 History: Past Medical History:: This patient is an 84 year old female who is known to the [facility] ST department from prior TCU, acute care, and RU stays preceding this TCU admission. She had an MRI of the brain on 08/12/2024 that showed subacute punctate infarcts of the white matter of the anterior left parietal lobe. She was admitted to TCU for rehabilitation then developed acute R hemiparesis and confusion on 08/25/2024. MRI on that date showed an acute lacunar infarct in the left pontine body. She has advanced periventricular white matter ischemic changes on imaging studies of the brain over the past few years. She was transferred to PCU. She underwent a MBSS on 08/28/24 which identified severe dysphagia necessitating PEG tube placement on 08/28/[address] Monsivais. She was transferred to the acute inpatient rehab unit at [facility] 08/29/2024 for 3 hours of therapy daily to restore function/independence at or near her level prior to the stroke. Pt's diet was advanced to pureed textures/pudding thick liquids per 08/27/24 MBSS recommendations w/ sips of water via teaspoon in accordance w/ [facility]P. She participated in dysphagia and speech-language therapy during stay on RU from 08/30/24-09/19/24 w/ repeat MBSS 09/20/24 revealing moderate oropharyngeal dysphagia w/ silent aspiration of thin liquids and recommending the following: Diet: Puree Textures and Pudding-thick Liquids; Comment: Pt to will not have any additional ST sessions prior discharge to the TCU on 09/22/24. Pt is somewhat apprehensive about diet advancement. Recommend to continue current diet of puree/pudding thick liquids until seen by ST on TCU to trial/advance to minced and moist textures and thin liquids w/ small bites/small sips, slow rate of intake, seated upright at 90 degrees during and for 30 minutes after intake (GERD precautions). Consider downgrade to mildly thick liquids if showing s/s intolerance at bedside w/ thin via small sips; Supervision: Distant Supervision. Pt evaluated for dysphagia 09/22/2024 on TCU and POC initiated w/ plans for pt to participate in [facility] ([facility]), an intensive, systematic exercise program aimed at improving swallow function and diet advancement. Pt participated in [facility] from 09/22/24-09/29/24 and advanced diet textures to regular textures w/ easy to chew meats / mildly (nectar) thick liquids and distant supervision. PEG tube removed 09/30/24. FEES was recommended to re-assess aspiration risk w/ liquids to determine if pt is safe for diet advancement to thin liquids. PMH: Proteinuria due to DM 2, Lumbar radiculopathy, chronic, CAD, Abnormal urinalysis, Facial droop, Expressive aphasia, Grade I diastolic dysfunction, Debility, Carcinoid bronchial adenoma of left lung, Herniation of intervertebral disc at L3-L4 level, Lumbar scoliosis, Abnormal finding on thyroid function test, Hypoxia, Chronic prescription benzodiazepine use, Acute ischemic stroke, Wears glasses, MRSA infection, Hx of Clostridium difficile infection, Cancer, Thyroid disease, Achilles tendinitis, Walker as ambulation aid, Arthritis, Bladder disease, Easy bruising, Injury of back, Back pain, Unsteady gait, Dietary restriction, Hx of hiatal hernia, Non-smoker, Chronic cough, Hoarseness, SOB on exertion, Leg cramps, Hx of edema, History of echocardiogram, History of stress test, Overweight (BMI 25.0-29.9), Macular degeneration, 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 Current Diet: Drinks/Liquids:: Mildly Thick Foods:: Regular Supervision: 1:1 Distant Supervision Comment:: Easy to Chew meats Respiratory Status Observation:: Room air Vocal Quality: Observations:: Hoarse Cognition: Observations:: Impaired and Did not impact exam Position During FEES: Position During FEES:: Upright Location: In Chair Fiberoptic Endoscope: Size: 3.4 mm Nare Used:: Left Anatomical Findings: Anatomical Findings:: Minimal thin secretions in oropharynx and hypopharynx. Reddish tissue throughout w/ cobblestoning on posterior pharyngeal wall likely indicative of pt's hx of reflux. The patient has what appears to by hypertrophic L lingual tonsil; however, following the exam pt informed TURF GROWER that she had a tonsillectomy as a child. Will recommend ENT consult. Complete adduction of arytenoids; however, incomplete adduction of true vocal folds w/ phonation. Decreased pharyngeal contraction w/ vocal glides most notable on R side likely secondary to recent L pontine CVA. Penetration-Aspiration Scale Penetration-Aspiration Scale Thin Liquids by Teaspoon Food/Drink Provided:: Green-colored water Swallow Onset Location:: Pyriform Sinuses PAS Score: PAS Score *1 Visual Analysis of Swallowing Efficiency and Safety (VASES) after the swallow: Oropharynx VASES Comments:: <5% vallecula Thin Liquids by Single Cup Food/Drink Provided:: Green-colored water - 10mL sips, then small sips by cup by patient Swallow Onset Location:: Epiglottis PAS Score: PAS Score *1 Visual Analysis of Swallowing Efficiency and Safety (VASES) after the swallow: Hypopharynx Comments:: <5% L pyriform sinus Thin Liquids by Single Straw Food/Drink Provided:: Green food-colored water Swallow Onset Location:: Pyriform Sinuses and Laryngeal Vestibule PAS Score: PAS Score *2 Visual Analysis of Swallowing Efficiency and Safety (VASES) after the swallow: Hypopharynx Comments:: <5% pyriform sinus, <5% vallecula Mildly Thick Liquids by Teaspoon Food/Drink Provided:: Green-colored mildly thick apple juice Swallow Onset Location:: Pyriform Sinuses PAS Score: PAS Score *1 Visual Analysis of Swallowing Efficiency and Safety (VASES) after the swallow: Oropharynx and Hypopharynx Comments:: <5% R pyriform sinus, <5% L lateral glossoepiglottic folds Mildly Thick Liquids by Single Cup Food/Drink Provided:: Green-colored mildly thick apple juice - 10mL sips Swallow Onset Location:: Laryngeal Vestibule PAS Score: PAS Score *5 Visual Analysis of Swallowing Efficiency and Safety (VASES) after the swallow: Oropharynx, Hypopharynx and Vocal Folds Comments:: <5% true vocal folds, <5% L lateral glossoepiglottic folds, <5% R pyriform sinus Additional Comments:: No reflexive cough in response to laryngeal penetration (very trace). Puree Textures Food/Drink Provided:: Pudding Swallow Onset Location:: Epiglottis PAS Score: PAS Score *1 Comments:: Complete clearance Regular Textures Food/Drink Provided:: Genna Boyer PAS Score: PAS Score *1 Comments:: 5% vallecula, 5% R pyriform sinus Diagnosis/Impressions Diagnosis: Mild oropharyngeal dysphagia R13.12 Impressions: The oral phase is marked by... -Mildly decreased bolus control w/ premature posterior loss of various liquid trials prior to swallow onset. Liquids onset in the pyriform sinuses, laryngeal vestibule, and posterior surface of the epiglottis. The pharyngeal phase is marked by... -Mild delay in swallow onset. -Laryngeal penetration of one sip of mildly thick liquids to the vocal folds that did not fully eject (trace residues on true vocal folds); otherwise, good airway closure during the swallow w/ complete ejection of thin liquids and no aspiration. Recommendations Diet: Regular Textures and Thin Liquids Medication Administration:: Whole in puree Comments: Easy to Chew meats per pt preference Compensatory Strategies: Small Bites, Small Sips, Slow Rate, Sitting upright and Remain sitting upright for 30 minutes after PO intake Supervision: 1:1 Distant Supervision Recommend Repeat Instrumental Swallow Assessment: TBD Need for Skilled Speech Therapy Services: Yes Comments: Continue w/ dysphagia POC. Will conclude MDTP as pt has resumed a Regular textured / Thin liquid diet, but will continued dysphagia treatment for ongoing assessment of diet tolerance and training in strategies to decrease risk for aspiration for 30min, 3-5X daily. ENT consult for what appeared to be hypertrophic L tonsil; however, pt informed TURF GROWER that she has hx of tonsillectomy. Will recommend ENT consult. Recommended Referrals: ENT Consult Education Completed: 1. Described result of evaluation., 2. Pt understands evaluation & agrees with goals and treatment plan. and 4. Family/caregivers understand evaluation & agree w/ goals & tx plan.
[2024-10-01 13:28] VITALS: BP 129/70; PULSE 72
--- NOTE | 2024-10-01 13:48 | MDS.RN ---
Information for the MDS was obtained from review of the clinical record, interview of resident, staff, and direct observation of resident?s care.
[2024-10-01 16:35] LABS: Bedside Glucose 193 mg/dL (74-106)
[2024-10-01] MEDS: clonazePAM 0.5 MG Tablet PO (20:59)
[2024-10-01] MEDS: MENTHOL 226.8 GM JAR 1 APPLIC TOPICAL (21:00)
[2024-10-01 21:01] VITALS: BP 127/58; PULSE 64
[2024-10-01] MEDS: Gabapentin 600 MG Tablet PO (21:02)
[2024-10-01 21:14] VITALS: BP 127/58; PULSE 64
[2024-10-01 21:44] LABS: Bedside Glucose 213 mg/dL (74-106)
[2024-10-02 06:15] LABS: Bedside Glucose 185 mg/dL (74-106)
[2024-10-02] MEDS: Insulin Glargine-YFGN 100 UNIT/ML Pen 24 UNIT SC ×2 (06:33→17:18)
[2024-10-02 06:34] VITALS: BP 152/62; PULSE 60
[2024-10-02] MEDS: Metoprolol Tartrate 50 MG Tablet PO ×3 (06:34→21:25)
[2024-10-02] MEDS: Menthol/Lanolin/Calamine/Znox 113 GM Tube 1 APPLIC TOPICAL ×2 (06:34→21:25)
[2024-10-02 06:41] VITALS: PULSE 60; RESP 15; O2SAT 96
[2024-10-02] MEDS: Insulin Lispro 100 UNIT/ML INSULN.PEN 10 UNIT SC ×3 (08:19→17:17)
[2024-10-02] MEDS: Famotidine 20 MG Tablet 40 MG PO (08:20)
[2024-10-02] MEDS: Aspirin 81 MG TAB.CHEW PO (08:20)
[2024-10-02] MEDS: Atorvastatin Calcium 40 MG Tablet PO (08:20)
[2024-10-02] MEDS: Enoxaparin 40 MG/0.4 ML Syringe SC (08:21)
[2024-10-02] MEDS: Lisinopril 2.5 MG Tablet PO (08:21)
[2024-10-02] MEDS: Sertraline 50 MG Tablet 75 MG PO (08:21)
[2024-10-02] MEDS: Cholecalciferol (VIT D3) 25 MCG TABLET (1,000 UNITS) PO (08:22)
[2024-10-02] MEDS: Nystatin Powder 15gm Bottle 1 APPLIC TOPICAL ×2 (08:22→21:26)
[2024-10-02] MEDS: Mupirocin Ointment 22gm Tube 1 APPLIC TOPICAL ×2 (08:23→21:24)
[2024-10-02] MEDS: Ipratropium Bromide 0.06% NASAL SPRAY 2 SPRAY NASAL ×2 (08:23→21:24)
[2024-10-02] MEDS: clonazePAM 0.5 MG Tablet 0.125 MG PO (08:41)
[2024-10-02] MEDS: Gabapentin 300 MG Capsule PO ×2 (08:42→15:14)
[2024-10-02 08:46] VITALS: BP 126/60; PULSE 69; RESP 16; TEMP 36.4; O2SAT 94
[2024-10-02 12:14] LABS: Bedside Glucose 269 mg/dL (74-106)
[2024-10-02 15:16] VITALS: PULSE 62
[2024-10-02 17:00] LABS: Bedside Glucose 205 mg/dL (74-106)
[2024-10-02 21:08] VITALS: BP 128/57; PULSE 63
[2024-10-02] MEDS: clonazePAM 0.5 MG Tablet PO (21:23)
[2024-10-02] MEDS: Gabapentin 600 MG Tablet PO (21:23)
[2024-10-02 21:25] VITALS: BP 128/57; PULSE 63
[2024-10-02] MEDS: Acetaminophen 325 MG Tablet 650 MG PO (21:31)
[2024-10-02] MEDS: MENTHOL 226.8 GM JAR 1 APPLIC TOPICAL (21:38)
[2024-10-02 21:44] LABS: Bedside Glucose 214 mg/dL (74-106)
[2024-10-03] VITALS (8 sets, daily range): BP systolic 124–151; BP diastolic 55–61; PULSE 58–70; RESP 12; TEMP 36.4; O2SAT 96–99
[2024-10-03] MEDS: Menthol/Lanolin/Calamine/Znox 113 GM Tube 1 APPLIC TOPICAL ×2 (06:19→20:51)
[2024-10-03] MEDS: Metoprolol Tartrate 50 MG Tablet PO ×3 (06:19→20:56)
[2024-10-03] MEDS: Insulin Glargine-YFGN 100 UNIT/ML Pen 24 UNIT SC ×2 (06:20→17:48)
[2024-10-03 06:40] LABS: Bedside Glucose 178 mg/dL (74-106)
[2024-10-03] MEDS: Insulin Lispro 100 UNIT/ML INSULN.PEN 10 UNIT SC ×3 (08:38→17:49)
[2024-10-03] MEDS: Aspirin 81 MG TAB.CHEW PO (08:43)
[2024-10-03] MEDS: Ipratropium Bromide 0.06% NASAL SPRAY 2 SPRAY NASAL ×2 (08:45→20:49)
[2024-10-03] MEDS: Mupirocin Ointment 22gm Tube 1 APPLIC TOPICAL ×2 (08:46→20:51)
[2024-10-03] MEDS: Atorvastatin Calcium 40 MG Tablet PO (08:47)
[2024-10-03] MEDS: Nystatin Powder 15gm Bottle 1 APPLIC TOPICAL ×2 (08:48→20:56)
[2024-10-03] MEDS: Enoxaparin 40 MG/0.4 ML Syringe SC (08:48)
[2024-10-03] MEDS: Famotidine 20 MG Tablet 40 MG PO (08:49)
[2024-10-03] MEDS: Cholecalciferol (VIT D3) 25 MCG TABLET (1,000 UNITS) PO (08:50)
[2024-10-03] MEDS: Lisinopril 2.5 MG Tablet PO (08:51)
[2024-10-03] MEDS: Sertraline 50 MG Tablet 75 MG PO (08:51)
[2024-10-03] MEDS: Gabapentin 300 MG Capsule PO ×2 (09:12→13:43)
[2024-10-03] MEDS: clonazePAM 0.5 MG Tablet 0.125 MG PO (09:13)
[2024-10-03 11:46] LABS: Bedside Glucose 321 mg/dL (74-106)
[2024-10-03 17:54] LABS: Bedside Glucose 188 mg/dL (74-106)
[2024-10-03] MEDS: Gabapentin 600 MG Tablet PO (20:48)
[2024-10-03] MEDS: clonazePAM 0.5 MG Tablet PO (20:48)
[2024-10-03] MEDS: Acetaminophen 325 MG Tablet 650 MG PO (21:04)
[2024-10-03] MEDS: MENTHOL 226.8 GM JAR 1 APPLIC TOPICAL (21:05)
[2024-10-03 22:08] LABS: Bedside Glucose 191 mg/dL (74-106)
[2024-10-04 06:17] VITALS: BP 145/57; PULSE 60
[2024-10-04] MEDS: Menthol/Lanolin/Calamine/Znox 113 GM Tube 1 APPLIC TOPICAL ×2 (06:18→08:51)
[2024-10-04] MEDS: Insulin Glargine-YFGN 100 UNIT/ML Pen 24 UNIT SC ×2 (06:20→18:06)
[2024-10-04 06:22] VITALS: BP 145/57; PULSE 60
[2024-10-04] MEDS: Metoprolol Tartrate 50 MG Tablet PO ×3 (06:22→21:25)
[2024-10-04 06:26] LABS: Bedside Glucose 215 mg/dL (74-106)
[2024-10-04] MEDS: Insulin Lispro 100 UNIT/ML INSULN.PEN 10 UNIT SC ×3 (08:33→18:06)
[2024-10-04] MEDS: Aspirin 81 MG TAB.CHEW PO (08:34)
[2024-10-04] MEDS: Atorvastatin Calcium 40 MG Tablet PO (08:34)
[2024-10-04] MEDS: Enoxaparin 40 MG/0.4 ML Syringe SC (08:34)
[2024-10-04] MEDS: Famotidine 20 MG Tablet 40 MG PO (08:34)
[2024-10-04] MEDS: Cholecalciferol (VIT D3) 25 MCG TABLET (1,000 UNITS) PO (08:35)
[2024-10-04] MEDS: Lisinopril 2.5 MG Tablet PO (08:35)
[2024-10-04] MEDS: Sertraline 50 MG Tablet 75 MG PO (08:36)
[2024-10-04] MEDS: Gabapentin 300 MG Capsule PO ×2 (08:43→13:29)
[2024-10-04] MEDS: clonazePAM 0.5 MG Tablet 0.125 MG PO (08:43)
[2024-10-04] MEDS: Nystatin Powder 15gm Bottle 1 APPLIC TOPICAL ×2 (08:51→21:25)
[2024-10-04] MEDS: Ipratropium Bromide 0.06% NASAL SPRAY 2 SPRAY NASAL ×2 (08:53→21:24)
[2024-10-04] MEDS: Mupirocin Ointment 22gm Tube 1 APPLIC TOPICAL ×2 (08:53→21:24)
[2024-10-04 11:50] LABS: Bedside Glucose 298 mg/dL (74-106)
[2024-10-04 13:28] VITALS: BP 140/66; PULSE 73
[2024-10-04 16:00] VITALS: BP 131/68; PULSE 96; RESP 18; TEMP 36.2; O2SAT 95
[2024-10-04 16:48] LABS: Bedside Glucose 331 mg/dL (74-106)
[2024-10-04 21:15] LABS: Bedside Glucose 305 mg/dL (74-106)
[2024-10-04] MEDS: Acetaminophen 325 MG Tablet 650 MG PO (21:23)
[2024-10-04] MEDS: Gabapentin 600 MG Tablet PO (21:23)
[2024-10-04] MEDS: MENTHOL 226.8 GM JAR 1 APPLIC TOPICAL (21:23)
[2024-10-04] MEDS: clonazePAM 0.5 MG Tablet PO (21:23)
[2024-10-04 21:25] VITALS: BP 140/68; PULSE 66
[2024-10-04 21:39] VITALS: BP 140/68; PULSE 66
[2024-10-05] VITALS (8 sets, daily range): BP systolic 118–148; BP diastolic 54–64; PULSE 58–75; RESP 16; TEMP 36.3; O2SAT 95–96
[2024-10-05] MEDS: Insulin Glargine-YFGN 100 UNIT/ML Pen 24 UNIT SC (05:55)
[2024-10-05] MEDS: Metoprolol Tartrate 50 MG Tablet PO ×3 (05:56→21:17)
[2024-10-05] MEDS: Menthol/Lanolin/Calamine/Znox 113 GM Tube 1 APPLIC TOPICAL ×2 (05:56→21:17)
[2024-10-05 06:14] LABS: Bedside Glucose 233 mg/dL (74-106)
[2024-10-05] MEDS: Insulin Lispro 100 UNIT/ML INSULN.PEN 10 UNIT SC ×2 (07:57→17:28)
[2024-10-05] MEDS: Aspirin 81 MG TAB.CHEW PO (07:59)
[2024-10-05] MEDS: Atorvastatin Calcium 40 MG Tablet PO (08:00)
[2024-10-05] MEDS: Ipratropium Bromide 0.06% NASAL SPRAY 2 SPRAY NASAL ×2 (08:00→21:16)
[2024-10-05] MEDS: Enoxaparin 40 MG/0.4 ML Syringe SC (08:01)
[2024-10-05] MEDS: Nystatin Powder 15gm Bottle 1 APPLIC TOPICAL ×2 (08:02→21:17)
[2024-10-05] MEDS: Sertraline 50 MG Tablet 75 MG PO (08:03)
[2024-10-05] MEDS: Lisinopril 2.5 MG Tablet PO (08:03)
[2024-10-05] MEDS: Cholecalciferol (VIT D3) 25 MCG TABLET (1,000 UNITS) PO (08:03)
[2024-10-05] MEDS: Famotidine 20 MG Tablet 40 MG PO (08:03)
[2024-10-05] MEDS: Gabapentin 300 MG Capsule PO ×2 (08:07→13:13)
[2024-10-05] MEDS: clonazePAM 0.5 MG Tablet 0.125 MG PO (08:16)
--- NOTE | 2024-10-05 08:22 | NURSING ---
CLONIDINE PATCH VERIFIED TO LT SHOULDER.
[2024-10-05 11:41] LABS: Bedside Glucose 368 mg/dL (74-106)
--- NOTE | 2024-10-05 11:47 | NURSING ---
blood sugar 368 prior to lunch, dr arguelles notified new order to administer humalog 20 units now x1. training and development officer notified of elevated blood sugars. pt on cardiac diet.
[2024-10-05] MEDS: Insulin Lispro 100 UNIT/ML INSULN.PEN 20 UNIT SC (11:59)
[2024-10-05] MEDS: Mupirocin Ointment 22gm Tube 1 APPLIC TOPICAL ×2 (12:54→21:16)
[2024-10-05] MEDS: Acetaminophen 325 MG Tablet 650 MG PO ×2 (13:13→21:14)
--- NOTE | 2024-10-05 14:28 | NS ---
Received call and consult from TCU that resident's blood glucose is 200-300's and on cardiac diet without carbohydrate-controlled restriction. Resident no longer receiving PEG feedings and eating by mouth. Will change diet to carbohydrate-controlled/cardiac for now and restrict calories if needed. Will decrease glucerna shake from 240mL 3 times per day with meals to 240mL 1 time per day w/ breakfast meal. Will monitor weight, oral intake and blood glucose level---further restrict diet as needed for improved glycemic control. Marlene Peña, MS, RD, LD
[2024-10-05 16:38] LABS: Bedside Glucose 249 mg/dL (74-106)
[2024-10-05] MEDS: Insulin Glargine-YFGN 100 UNIT/ML Pen 30 UNIT SC (17:30)
[2024-10-05] MEDS: clonazePAM 0.5 MG Tablet PO (21:15)
[2024-10-05] MEDS: Gabapentin 600 MG Tablet PO (21:16)
[2024-10-05] MEDS: MENTHOL 226.8 GM JAR 1 APPLIC TOPICAL (21:18)
[2024-10-05 21:53] LABS: Bedside Glucose 233 mg/dL (74-106)
[2024-10-06 04:55] LABS: Absolute Lymphocyte Count 2.46 X10^3/uL (0.83-4.51); Absolute Neutrophil Count 4.7 X10^3/uL (2.0-7.7); Basophil# 0.04 X10^3/uL; Basophil% 0.5 % (0-1); Eosinophil# 0.36 X10^3/uL; Eosinophils% 4.2 % (0-5); Hematocrit 36.2 % (37-47); Hemoglobin 12.1 g/dL (12.0-15.0); Lymphocyte # 2.46 X10^3/ul (0.83-4.51); Lymphocyte % 28.9 % (19-41); Mean Corp Hgb Conc 33.4 g/dL (32-36); Mean Corpuscular Hgb 31.1 pg (27.0-32.0); Mean Corpuscular Volume 93.1 fL (81-99); Mean Platelet Vol. 10.9 fl (6.2-12.0); Monocyte# 0.89 X10^3/uL; Monocyte% 10.5 % (0-10); NRBC Flagged by Analyzer 0 % (0-5); Neutrophil # 4.74 X10^3/uL (2.7-7.7); Neutrophil % 55.7 % (47-70); Platelet Count 229 K/mm3 (150-450); RBC Distribution Width CV 12.9 % (11.6-14.6); RBC Distribution Width SD 43.7 fl (35.1-43.9); Red Blood Count 3.89 M/mm3 (4.2-5.4); White Blood Count 8.5 K/mm3 (4.4-11.0)
[2024-10-06 05:05] LABS: Anion Gap 8 (5-15); BUN 23 mg/dL (7-18); BUN/Creat Ratio 30.6 RATIO (10-20); Calcium,Total 9.3 mg/dL (8.5-10.1); Chloride 106 mmol/L (98-107); Creatinine, Serum 0.75 mg/dL (0.55-1.02); EST Glomerular Filtration Rate 78 mL/min (>60); Est Glom Filt Rate - Afr Amer 95 mL/min (>60); Estimated Creatinine Clearance 49.46 ml/min; Glucose 179 mg/dL (74-106); Potassium 3.9 mmol/L (3.5-5.1); Sodium Level 139 mmol/L (136-145)
[2024-10-06 05:42] LABS: Bedside Glucose 183 mg/dL (74-106)
[2024-10-06 05:45] VITALS: PULSE 58; RESP 16
[2024-10-06] MEDS: Insulin Glargine-YFGN 100 UNIT/ML Pen 30 UNIT SC ×2 (05:47→17:51)
[2024-10-06 05:49] VITALS: BP 140/51; PULSE 56
[2024-10-06] MEDS: Metoprolol Tartrate 50 MG Tablet PO ×3 (05:49→22:00)
[2024-10-06] MEDS: Menthol/Lanolin/Calamine/Znox 113 GM Tube 1 APPLIC TOPICAL ×2 (05:49→21:59)
[2024-10-06 07:52] VITALS: BP 144/61; PULSE 57; RESP 16; TEMP 36.3; O2SAT 97
[2024-10-06] MEDS: Insulin Lispro 100 UNIT/ML INSULN.PEN 10 UNIT SC ×3 (08:42→17:50)
[2024-10-06] MEDS: Aspirin 81 MG TAB.CHEW PO (08:47)
[2024-10-06] MEDS: Ipratropium Bromide 0.06% NASAL SPRAY 2 SPRAY NASAL ×2 (08:48→21:55)
[2024-10-06] MEDS: Mupirocin Ointment 22gm Tube 1 APPLIC TOPICAL ×2 (08:50→21:56)
[2024-10-06] MEDS: Atorvastatin Calcium 40 MG Tablet PO (08:51)
[2024-10-06] MEDS: Enoxaparin 40 MG/0.4 ML Syringe SC (08:52)
[2024-10-06] MEDS: Nystatin Powder 15gm Bottle 1 APPLIC TOPICAL ×2 (08:53→22:01)
[2024-10-06] MEDS: Famotidine 20 MG Tablet 40 MG PO (08:54)
[2024-10-06] MEDS: Cholecalciferol (VIT D3) 25 MCG TABLET (1,000 UNITS) PO (08:56)
[2024-10-06] MEDS: Lisinopril 2.5 MG Tablet PO (08:56)
[2024-10-06] MEDS: clonazePAM 0.5 MG Tablet 0.125 MG PO (09:19)
[2024-10-06] MEDS: Gabapentin 300 MG Capsule PO ×2 (09:21→14:06)
[2024-10-06] MEDS: Sertraline 50 MG Tablet 75 MG PO (09:23)
[2024-10-06 11:30] LABS: Bedside Glucose 298 mg/dL (74-106)
[2024-10-06 14:03] VITALS: BP 138/67; PULSE 69
[2024-10-06 16:35] LABS: Bedside Glucose 225 mg/dL (74-106)
[2024-10-06 21:53] VITALS: BP 125/56; PULSE 64
[2024-10-06] MEDS: clonazePAM 0.5 MG Tablet PO (21:54)
[2024-10-06] MEDS: Gabapentin 600 MG Tablet PO (21:55)
[2024-10-06 22:00] VITALS: BP 125/56; PULSE 64
[2024-10-06] MEDS: MENTHOL 226.8 GM JAR 1 APPLIC TOPICAL (22:02)
[2024-10-06] MEDS: Acetaminophen 325 MG Tablet 650 MG PO (22:05)
[2024-10-06 22:15] LABS: Bedside Glucose 234 mg/dL (74-106)
[2024-10-07 05:58] VITALS: BP 135/60; PULSE 58
[2024-10-07] MEDS: Menthol/Lanolin/Calamine/Znox 113 GM Tube 1 APPLIC TOPICAL ×2 (05:59→21:06)
[2024-10-07 06:00] VITALS: BP 135/60; PULSE 58
[2024-10-07] MEDS: Metoprolol Tartrate 50 MG Tablet PO ×3 (06:00→21:05)
[2024-10-07] MEDS: Insulin Glargine-YFGN 100 UNIT/ML Pen 30 UNIT SC (06:01)
[2024-10-07 06:09] LABS: Bedside Glucose 241 mg/dL (74-106)
[2024-10-07] MEDS: Insulin Lispro 100 UNIT/ML INSULN.PEN 10 UNIT SC ×3 (08:07→18:22)
[2024-10-07] MEDS: Ipratropium Bromide 0.06% NASAL SPRAY 2 SPRAY NASAL ×2 (08:08→21:04)
[2024-10-07] MEDS: Atorvastatin Calcium 40 MG Tablet PO (08:08)
[2024-10-07] MEDS: Aspirin 81 MG TAB.CHEW PO (08:08)
[2024-10-07] MEDS: Gabapentin 300 MG Capsule PO ×2 (08:08→13:47)
[2024-10-07] MEDS: Sertraline 50 MG Tablet 75 MG PO (08:09)
[2024-10-07] MEDS: Famotidine 20 MG Tablet 40 MG PO (08:09)
[2024-10-07] MEDS: Cholecalciferol (VIT D3) 25 MCG TABLET (1,000 UNITS) PO (08:09)
[2024-10-07] MEDS: Enoxaparin 40 MG/0.4 ML Syringe SC (08:09)
[2024-10-07] MEDS: Lisinopril 2.5 MG Tablet PO (08:09)
[2024-10-07] MEDS: Mupirocin Ointment 22gm Tube 1 APPLIC TOPICAL ×2 (08:19→21:05)
[2024-10-07] MEDS: Nystatin Powder 15gm Bottle 1 APPLIC TOPICAL ×2 (08:20→21:04)
[2024-10-07] MEDS: clonazePAM 0.5 MG Tablet 0.125 MG PO (08:24)
[2024-10-07 10:00] VITALS: BP 157/68; PULSE 62; RESP 18; TEMP 36.4; O2SAT 97
[2024-10-07 11:22] LABS: Bedside Glucose 324 mg/dL (74-106)
[2024-10-07 13:40] VITALS: BP 137/67; PULSE 68
[2024-10-07 15:00] VITALS: BMI 27.8
[2024-10-07 16:29] LABS: Bedside Glucose 165 mg/dL (74-106)
[2024-10-07] MEDS: Insulin Glargine-YFGN 100 UNIT/ML Pen 35 UNIT SC (18:23)
[2024-10-07] MEDS: Gabapentin 600 MG Tablet PO (20:59)
[2024-10-07] MEDS: clonazePAM 0.5 MG Tablet PO (20:59)
[2024-10-07] MEDS: Acetaminophen 325 MG Tablet 650 MG PO (21:00)
[2024-10-07 21:05] VITALS: BP 123/58; PULSE 65
[2024-10-07 21:26] LABS: Bedside Glucose 137 mg/dL (74-106)
[2024-10-08 05:23] VITALS: BP 128/50; PULSE 57
[2024-10-08] MEDS: Metoprolol Tartrate 50 MG Tablet PO ×3 (05:23→20:59)
[2024-10-08] MEDS: Insulin Glargine-YFGN 100 UNIT/ML Pen 35 UNIT SC ×2 (05:25→18:14)
[2024-10-08] MEDS: Menthol/Lanolin/Calamine/Znox 113 GM Tube 1 APPLIC TOPICAL ×2 (05:32→20:57)
[2024-10-08 05:46] LABS: Bedside Glucose 143 mg/dL (74-106)
[2024-10-08 08:40] VITALS: BP 137/60; PULSE 67; RESP 18; TEMP 36.5; O2SAT 96
[2024-10-08] MEDS: Insulin Lispro 100 UNIT/ML INSULN.PEN 10 UNIT SC ×3 (08:45→17:29)
[2024-10-08] MEDS: Lisinopril 2.5 MG Tablet PO (08:46)
[2024-10-08] MEDS: Famotidine 20 MG Tablet 40 MG PO (08:46)
[2024-10-08] MEDS: Cholecalciferol (VIT D3) 25 MCG TABLET (1,000 UNITS) PO (08:46)
[2024-10-08] MEDS: Aspirin 81 MG TAB.CHEW PO (08:46)
[2024-10-08 08:47] VITALS: PULSE 67
[2024-10-08] MEDS: Sertraline 50 MG Tablet 75 MG PO (08:47)
[2024-10-08] MEDS: Enoxaparin 40 MG/0.4 ML Syringe SC (08:47)
[2024-10-08] MEDS: Atorvastatin Calcium 40 MG Tablet PO (08:47)
[2024-10-08] MEDS: cloNIDine HCl 0.2 MG Patch TD (08:48)
[2024-10-08] MEDS: Mupirocin Ointment 22gm Tube 1 APPLIC TOPICAL ×2 (08:49→20:55)
[2024-10-08] MEDS: Ipratropium Bromide 0.06% NASAL SPRAY 2 SPRAY NASAL ×2 (08:49→20:54)
[2024-10-08] MEDS: Gabapentin 300 MG Capsule PO ×2 (08:54→13:49)
[2024-10-08] MEDS: clonazePAM 0.5 MG Tablet 0.125 MG PO (08:54)
[2024-10-08] MEDS: Nystatin Powder 15gm Bottle 1 APPLIC TOPICAL ×2 (08:58→20:57)
[2024-10-08 11:29] VITALS: RESP 17
[2024-10-08 11:29] LABS: Bedside Glucose 271 mg/dL (74-106)
--- NOTE | 2024-10-08 15:14 | CASEMGMT ---
Social Work Pt's requesting to speak with this worker. SW spoke with . inquiring about DC date, and being proactive with planning. SW explained per last conversation with pt's dtr, Nargis, the plan was for Nargis to come into town for her spring break, and have pt discharged on the . SW encouraged to follow up with dtr on plan. SW to follow up later in the week as well. SW stated as of now, no DME needs noted, but will coordinate skilled HHC and can assist in any recommendations for home modifications. expressed understanding and appreciative. SW will continue to follow. Harmony Bhakta MSW DEPARTMENT OF SOCIOLOGY CHAIR
[2024-10-08 16:44] LABS: Bedside Glucose 207 mg/dL (74-106)
[2024-10-08] MEDS: Gabapentin 600 MG Tablet PO (20:52)
[2024-10-08] MEDS: clonazePAM 0.5 MG Tablet PO (20:52)
[2024-10-08] MEDS: Acetaminophen 325 MG Tablet 650 MG PO (20:52)
[2024-10-08] MEDS: MENTHOL 226.8 GM JAR 1 APPLIC TOPICAL (20:53)
[2024-10-08 20:59] VITALS: BP 135/63; PULSE 64
[2024-10-08 21:11] VITALS: BP 135/63; PULSE 64
[2024-10-08 22:07] LABS: Bedside Glucose 229 mg/dL (74-106)
[2024-10-09] VITALS (7 sets, daily range): BP systolic 121–144; BP diastolic 61–68; PULSE 61–86; RESP 16; TEMP 36.2; O2SAT 98
[2024-10-09] MEDS: Menthol/Lanolin/Calamine/Znox 113 GM Tube 1 APPLIC TOPICAL ×2 (06:31→21:34)
[2024-10-09] MEDS: Metoprolol Tartrate 50 MG Tablet PO ×3 (06:32→21:29)
[2024-10-09] MEDS: Insulin Glargine-YFGN 100 UNIT/ML Pen 35 UNIT SC ×2 (06:32→17:50)
[2024-10-09 07:09] LABS: Bedside Glucose 181 mg/dL (74-106)
[2024-10-09] MEDS: Enoxaparin 40 MG/0.4 ML Syringe SC (08:14)
[2024-10-09] MEDS: Nystatin Powder 15gm Bottle 1 APPLIC TOPICAL ×2 (08:14→21:35)
[2024-10-09] MEDS: Insulin Lispro 100 UNIT/ML INSULN.PEN 15 UNIT SC ×3 (08:15→17:49)
[2024-10-09] MEDS: Sertraline 50 MG Tablet 75 MG PO (08:15)
[2024-10-09] MEDS: Lisinopril 2.5 MG Tablet PO (08:16)
[2024-10-09] MEDS: Aspirin 81 MG TAB.CHEW PO (08:16)
[2024-10-09] MEDS: Cholecalciferol (VIT D3) 25 MCG TABLET (1,000 UNITS) PO (08:16)
[2024-10-09] MEDS: Famotidine 20 MG Tablet 40 MG PO (08:16)
[2024-10-09] MEDS: Atorvastatin Calcium 40 MG Tablet PO (08:16)
[2024-10-09] MEDS: Ipratropium Bromide 0.06% NASAL SPRAY 2 SPRAY NASAL ×2 (08:17→21:28)
[2024-10-09] MEDS: Mupirocin Ointment 22gm Tube 1 APPLIC TOPICAL ×2 (08:17→21:28)
[2024-10-09] MEDS: clonazePAM 0.5 MG Tablet 0.125 MG PO (08:27)
[2024-10-09] MEDS: Gabapentin 300 MG Capsule PO ×2 (08:28→13:01)
[2024-10-09 11:27] LABS: Bedside Glucose 298 mg/dL (74-106)
--- NOTE | 2024-10-09 15:03 | CASEMGMT ---
Addendum entered by Harmony Bhakta 10/09/24 15:11: SW received return call from dtr. She is flying into town and will be present to assist on 10/19, but her siblings will be able to assist with DC on 10/18. SW to speak with pt and finalize DC plans for 10/18. Original Note: Social Work SW left VM with dtr, Nargis, to finalize DC plans. Harmony Bhakta AUTHORIZATION MANAGER COMMERCIAL REPRESENTATIVE
--- NOTE | 2024-10-09 15:07 | NURSING ---
Off unit to ENT appt at 1430 via via accompanied by this RN. Back to room around 1505. Per resident/, no new orders, need to follow-up in 3 months. They made appt before leaving office.
[2024-10-09 16:49] LABS: Bedside Glucose 221 mg/dL (74-106)
[2024-10-09 21:19] LABS: Bedside Glucose 263 mg/dL (74-106)
[2024-10-09] MEDS: Acetaminophen 325 MG Tablet 650 MG PO (21:27)
[2024-10-09] MEDS: Gabapentin 600 MG Tablet PO (21:28)
[2024-10-09] MEDS: clonazePAM 0.5 MG Tablet PO (21:28)
[2024-10-10] VITALS (8 sets, daily range): BP systolic 137–161; BP diastolic 54–70; PULSE 51–65; RESP 16–18; TEMP 36.6; O2SAT 97
[2024-10-10] MEDS: Insulin Glargine-YFGN 100 UNIT/ML Pen 35 UNIT SC ×2 (05:46→17:48)
[2024-10-10] MEDS: Metoprolol Tartrate 50 MG Tablet PO ×3 (05:49→21:09)
[2024-10-10] MEDS: Menthol/Lanolin/Calamine/Znox 113 GM Tube 1 APPLIC TOPICAL ×2 (05:52→21:11)
[2024-10-10 06:10] LABS: Bedside Glucose 112 mg/dL (74-106)
[2024-10-10] MEDS: Insulin Lispro 100 UNIT/ML INSULN.PEN 15 UNIT SC ×3 (07:59→17:48)
[2024-10-10] MEDS: clonazePAM 0.5 MG Tablet 0.125 MG PO (08:04)
[2024-10-10] MEDS: Aspirin 81 MG TAB.CHEW PO (08:04)
[2024-10-10] MEDS: Gabapentin 300 MG Capsule PO ×2 (08:05→13:28)
[2024-10-10] MEDS: Ipratropium Bromide 0.06% NASAL SPRAY 2 SPRAY NASAL ×2 (08:06→21:10)
[2024-10-10] MEDS: Mupirocin Ointment 22gm Tube 1 APPLIC TOPICAL ×2 (08:07→21:10)
[2024-10-10] MEDS: Atorvastatin Calcium 40 MG Tablet PO (08:08)
[2024-10-10] MEDS: Enoxaparin 40 MG/0.4 ML Syringe SC (08:08)
[2024-10-10] MEDS: Nystatin Powder 15gm Bottle 1 APPLIC TOPICAL ×2 (08:09→21:19)
[2024-10-10] MEDS: Cholecalciferol (VIT D3) 25 MCG TABLET (1,000 UNITS) PO (08:10)
[2024-10-10] MEDS: Famotidine 20 MG Tablet 40 MG PO (08:10)
[2024-10-10] MEDS: Lisinopril 2.5 MG Tablet PO (08:11)
[2024-10-10] MEDS: Sertraline 50 MG Tablet 75 MG PO (08:12)
--- NOTE | 2024-10-10 09:57 | NURSING ---
Heart monitor removed per orders. Box ready for to pickle processor and drop off for mail. Patient aware and will let know.
[2024-10-10 11:46] LABS: Bedside Glucose 227 mg/dL (74-106)
--- NOTE | 2024-10-10 13:24 | CASEMGMT ---
Addendum entered by Harmony Bhakta 10/13/24 09:14: [facility] can accept and requested to add SN and SW. approved. Order updated. Addendum entered by Harmony Bhakta 10/13/24 08:41: ST added to C order Original Note: Social Work SW spoke with pt and at bedside to discuss DC plans. Confirmed the plan is for pt to DC 10/18, to coordinate with the assistance of dtr from [place] of [place]. All in agreement. SW offered to set up skilled HHC. Pt agreeable and requesting to use [facility]. SW to coordinate. Pt denied DME needs. Dtr, Allen, and to transport. - SW phoned referral to [facility] PT/OT Plan: DC home with and family support 10/18, [facility] PT/OT SAWYER Cavazos
--- NOTE | 2024-10-10 14:08 | PCM.DC.SUM ---
Providers Date of Admission: 09/21/24 Primary Care Physician: Dr. Emily Yun MD Consultations 09/29/24 17:22 Consult: General Surgery Routine Consulting Provider: Frank Grace Reason for Consult: PEG removal. EMERGENT Consult: No MD Notified: Yes Date Notified: 09/30/24 Time Notified: 07:47 Method of Notification: Text Reason For Visit: CVA Diagnosis Discharge Diagnosis (1) CVA (cerebral vascular accident): Status: Acute Code(s): I63.9 - Cerebral infarction, unspecified Qualifiers: CVA mechanism: unspecified Qualified Code(s): I63.9 - Cerebral infarction, unspecified Plan 84 year old female with below past medical history hospitalized for stroke, requiring PEG for dysphagia, admitted to [facility], complicated by difficult to control HTN, neuropathic leg pain, urinary tract infection, yeast vaginitis, admitted to TCU with debility, here for rehabilitation, strengthening, prior to discharge home with . Debility - PT/OT/ST. Pain - Tylenol 650mg q4 prn. Bowel - Dulcolax 10mg pr x 1 prn, MOM 30mL x 1 prn, Imodium 2mg q4 prn. Adult immunization - Administer pneumonia vaccine, covid vaccine, flu vaccine as appropriate. DVT prophylaxis - Lovenox 40mg sc daily. Shortness of breath - Albuterol 2.5mg neb q6 prn. Stroke - Aspirin 81mg daily. Hyperlipidemia - Atorvastatin 40mg daily. Vitamin D deficiency - D3 25mcg daily. Hypertension - Metoprolol 50mg bid, Lisinopril 2.5mg daily, clonidine 0.2mg patch td qweek. Anxiety - Clonazepam 0.125mg, 0.5mg stable use, GDR not recommended. GERD - Famotidine 40mg daily. Neuropathic pain - Gabapentin 300mg, 300mg, 600mg. Diabetes Mellitus II - Glargine 24 units bid, Humalog 20 units, 14 units 10 unts, Glucagon 1mg im x 1 orn. Nutrition - Glucerna shake 120mL po bid. Allergic rhinitis - Atorvent nasal spray 2 sprays nasal bid. Skin irritation - Calmoseptine topical bid. PEG site - Mupirocin topical bid. Tinea Corporis - Nystatin powder topical bid. Depression - Sertraline 75mg daily, stable chronic use, GDR not recommended. Medications at Discharge Home Medications acetaminophen 325 mg tablet 650 mg (2 x 325 mg) G-tube Q4H PRN PRN Pain 1-10 Or Fever>99.6 #0 tabs 08/29/24 aspirin 81 mg chewable tablet 81 mg G-tube BREAKFAST Heart health #0 tabs 08/29/24 menthol 2 % topical gel (Blue Gel) 1 applic topical TID PRN PRN Pain 1-10/Inflammation #0 grams 08/29/24 atorvastatin 40 mg tablet 40 mg PO DAILY 30 days #30 tabs 10/10/24 cholecalciferol (vitamin D3) 25 mcg (1,000 unit) tablet 25 mcg PO DAILY 30 days #30 tabs 10/10/24 clonazepam 0.5 mg tablet 0.125 mg (1/4 x 0.5 mg) PO 0800 30 days #8 tabs 10/10/24 clonazepam 0.5 mg tablet 0.5 mg PO 2000 30 days #30 tabs 10/10/24 clonidine 0.2 mg/24 hr weekly transdermal patch 0.2 mg transdermal We@1000 30 days #4 ea 10/10/24 famotidine 20 mg tablet 40 mg (2 x 20 mg) PO DAILY 30 days #60 tabs 10/10/24 gabapentin 300 mg capsule 300 mg PO 0800,1400 30 days #60 caps 10/10/24 gabapentin 600 mg tablet 600 mg PO 2100 30 days #30 tabs 10/10/24 insulin glargine-yfgn 100 unit/mL (3 mL) subcutaneous pen 35 unit (0.35 mL) subcut 0600,1800 30 days #21 mL 10/10/24 insulin lispro 100 unit/mL subcutaneous pen (Humalog KwikPen (U-100) Insulin) 15 unit (0.15 mL) subcut TIDAC 30 days #13.5 mL 10/10/24 ipratropium bromide 42 mcg (0.06 %) nasal spray 2 spray NASAL BID 30 days #15 mL 10/10/24 lisinopril 2.5 mg tablet 2.5 mg PO DAILY 30 days #30 tabs 10/10/24 metoprolol tartrate 50 mg tablet 50 mg PO TID 30 days #90 tabs 10/10/24 sertraline 50 mg tablet 75 mg (1.5 x 50 mg) PO DAILY 30 days #45 tabs 10/10/24 Hospital Course Operations None Procedures - (FEES) Summary of Care Provided Minutes Spent on Discharge: 35 Hospital Course: 84 year old female with below past medical history hospitalized for stroke, requiring PEG for dysphagia, admitted to , complicated by difficult to control HTN, neuropathic leg pain, urinary tract infection, yeast vaginitis, admitted to TCU with debility, here for rehabilitation, strengthening, prior to discharge home with . 09/30/2024 Dr. Grace removed peg tube without complication. 10/01/2024 Fiberoptic endoscopic exam of swallowing: Recommendations Diet: Regular Textures and Thin Liquids Medication Administration:: Whole in puree Comments: Easy to Chew meats per pt preference Compensatory Strategies: Small Bites, Small Sips, Slow Rate, Sitting upright and Remain sitting upright for 30 minutes after PO intake Supervision: 1:1 Distant Supervision Recommend Repeat Instrumental Swallow Assessment: TBD Need for Skilled Speech Therapy Services: Yes Comments: Continue w/ dysphagia POC. Will conclude MDTP as pt has resumed a Regular textured / Thin liquid diet, but will continued dysphagia treatment for ongoing assessment of diet tolerance and training in strategies to decrease risk for aspiration for 30min, 3-5X daily. 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 Will recommend ENT consult. Recommended Referrals: ENT Consult Discharge home with and family support 10/18/2024, [facility] PT/OT. Physical Exam Const alert General Appearance: cooperative HEENT normocephalic Eyes PERRL and EOMs intact bilaterally Neck supple, no JVD and no carotid bruits Resp normal respiratory effort, normal air movement and clear to auscultation bilaterally Cardio regular rate and regular rhythm GI normal to inspection, nondistended, normoactive bowel sounds, non-tender and non-distended GI Narrative: PEG. Extremity normal capillary refill General Extremity: Negative for edema Skin no rashes or lesions noted General Skin Exam: no breakdown Neuro moves all extremities Neuro Narrative: Right hemiparesis. Psych affect normal Appearance: appropriate Weight / BMI Weight Weight: 68.946 kg Body Mass Index (BMI) 27.8 ABG / Lab / Microbiology Data 10/06/24 03:57 10/06/24 03:57 Laboratory: Laboratory Results - last 24 hr 10/09/24 16:30: POC Glucose 221 H 10/09/24 20:57: POC Glucose 263 H 10/10/24 05:47: POC Glucose 112 H 10/10/24 11:28: POC Glucose 227 H Microbiology: Microbiology 10/01/24 05:50 Nasal Secretion SARS-CoV-2 Antigen (Rapid) - Final 09/24/24 06:45 Nasal Secretion SARS-CoV-2 Antigen (Rapid) - Final D/C Instructions Discharge Diet: No restrictions Discharge Activity: Return to Normal Activity, May Shower and Use Walker Weight Bearing Status: Weight bearing as tolerated Call your doctor if you observe: Fever of 101 or Higher, Inability to urinate, Inability to have a bowel movement, Shortness of breath, Dizziness, Fainting spells, Swelling in the ankles, Chest pain and Uncontrolled pain DC O2, CPAP, BIPAP Needs Home O2 Discharge instructions: No Additional Instructions: Discharge home with and family support 10/18/2024, [facility] PT/OT. Please Follow Up With: Emily Yun When: Within 1 week. Meaningful Use Info Meaningful Use Meaningful Use Diagnoses (Choose all that apply): Ischemic CVA CVA Therapy Assessed for PT,OT and/or ST?: Yes Ischemic Stroke Antithrombotic order at d/c?: Yes Dx of Atrial fib/flutter?: No Statin Dosing Therapy Reference: STATIN DOSE THERAPY REFERENCE: * Patients > 75 years receive moderate or high dose statin therapy. * Patients 75 years or YOUNGER should receive HIGH intensity statin dose unless contraindicated. You will be required to document reason for non-treatment if statin daily dose does not meet guidelines. HIGH DOSE STATIN THERAPY DAILY Atorvastatin > than or = to 40 mg Rosuvastatin > than or = to 20 mg Amlodipine + Atorvastatin > than or = to 2.5/40 mg Ezetimibe + Simvastatin 10/80 mg Simvastatin 80mg Statins at discharge?: Yes Primary Dx Acute Ischemic CVA?: Yes IV thrombolytic ordered during stay?: No Reason IV thrombolytic not ordered: Procedure not Indicated Discharge Plan Admission Admit Date/Time: 09/21/24 14:47 Primary Reason for Your Visit: Debility Attending Provider: Denzel Forbes Chi Primary Care Provider: Emily Yun Instructions Additional Instructions / Restrictions: Discharge home with and family support 10/18/2024, [facility] PT/OT. Discharge Orders/Prescriptions Prescriptions: New atorvastatin 40 mg Tablet 40 mg PO DAILY 30 Days Qty: 30 0RF gabapentin 600 mg Tablet 600 mg PO 2100 30 Days Qty: 30 0RF clonidine 0.2 mg/24 hr Patch Weekly 0.2 mg transdermal We@1000 30 Days Qty: 4 0RF clonazepam 0.5 mg Tablet 0.5 mg PO 1999 30 Days Qty: 30 0RF clonazepam 0.5 mg Tablet 0.125 mg PO 0800 30 Days Qty: 8 0RF famotidine 20 mg Tablet 40 mg PO DAILY 30 Days Qty: 60 0RF metoprolol tartrate 50 mg Tablet 50 mg PO TID 30 Days Qty: 90 0RF gabapentin 300 mg Capsule 300 mg PO 0800,1400 30 Days Qty: 60 0RF ipratropium bromide 42 mcg (0.06 %) [place],Non-Aerosol 2 spray NASAL BID 30 Days Qty: 15 0RF sertraline 50 mg Tablet 75 mg PO DAILY 30 Days Qty: 45 0RF lisinopril 2.5 mg Tablet 2.5 mg PO DAILY 30 Days Qty: 30 0RF insulin lispro [Humalog KwikPen Insulin] 100 unit/mL Insulin Pen 15 unit subcut TIDAC 30 Days Qty: 13.5 0RF cholecalciferol (vitamin D3) 25 mcg (1,000 unit) Tablet 25 mcg PO DAILY 30 Days Qty: 30 0RF insulin glargine-yfgn 100 unit/mL (3 mL) Insulin Pen 35 unit subcut 0600,1800 30 Days Qty: 21 0RF Continued acetaminophen 325 mg Tablet 650 mg G-tube Q4H PRN PRN (Reason: Pain 1-10 Or Fever>99.6) Qty: 0 0RF aspirin 81 mg Tablet,Chewable 81 mg G-tube BREAKFAST Qty: 0 0RF Discontinued albuterol sulfate 90 mcg/actuation HFA aerosol inhaler 2 puff inhalation Q6H PRN (Reason: shortness of breath or wheezing) Qty: 6.7 3RF atorvastatin 40 mg Tablet 40 mg G-tube DAILY Qty: 0 0RF cholecalciferol (vitamin D3) 25 mcg (1,000 unit) Tablet 25 mcg G-tube DAILY Qty: 0 0RF clonidine 0.2 mg/24 hr Patch Weekly 0.2 mg transdermal Q7D Qty: 1 0RF clonazepam 0.5 mg Tablet 0.5 mg PO 2000 Qty: 1 0RF clonazepam 0.5 mg Tablet 0.125 mg PO 0800 Qty: 1 0RF bisacodyl 10 mg Suppository 10 mg MI X1 PRN (Reason: Constipation) Qty: 1 0RF IV with Additives Dextrose 10%-Water 250 ML As Directed mls/hr IV PRN (Reason: Hypoglycemia) Dispense quantity sufficient for the days supply referenced in the instructions field. Ordered By: Nikky Pastor DO Last Taken: Unknown Protocol: Hypoglycemia: Dextrose 10% Protocol Condition: Patient's Blood Glucose > 50mg/dL Dose/Route: Administer 12.5gm (125ml) of Dextrose 10% Condition: Dose/Route: Condition: Patient's Blood Glucose < 50mg/dL Dose/Route: Administer 25gm (250ml) of Dextrose 10% Protocol Text: 1) Administer Dextrose 10% by IV infusion. May infuse at 999 ml/hr or wide open if infusion pump not available 2) Recheck blood glucose in 15 minutes; continue to follow protocol based on repeat blood glucose and patient characteristics gabapentin 400 mg Capsule 400 mg PO 2100 Qty: 1 0RF famotidine 20 mg Tablet 40 mg G-tube DAILY Qty: 1 0RF gabapentin 300 mg Capsule 300 mg G-tube 0800,1400 Qty: 1 0RF Glucagon Emergency Kit (human) 1 mg Recon Soln 1 mg IM X1 PRN (Reason: Hypoglycemia) Qty: 1 0RF ipratropium bromide 42 mcg (0.06 %) [place],Non-Aerosol 2 spray NASAL BID Qty: 1 0RF lisinopril 2.5 mg Tablet 2.5 mg PO DAILY Qty: 1 0RF insulin lispro [Humalog KwikPen Insulin] 100 unit/mL Insulin Pen See Protocol subcut TIDCM Qty: 1 0RF Protocol: 3. Sliding Scale Insulin Med Dosing Condition: 150-189 mg/dl = 1 unit Condition: 190-229 mg/dl = 2 units Condition: 230-269 mg/dl = 3 units Condition: 270-309 mg/dl = 4 units Condition: 310-349 mg/dl = 5 units Condition: 350-399 mg/dl = 6 units Condition: 400-449 mg/dl = 7 units Condition: Greater than 449 call physician Protocol Text: Suggested for: - Patients on Total Daily Insulin Dose of 37-55 units - Obese, infected, or steroid patients MEDIUM DOSING ALGORITHIM insulin lispro [Humalog KwikPen Insulin] 100 unit/mL Insulin Pen 20 unit subcut BREAKFAST Qty: 1 0RF insulin lispro [Humalog KwikPen Insulin] 100 unit/mL Insulin Pen 14 unit subcut 1200,1700 Qty: 1 0RF insulin lispro [Humalog KwikPen Insulin] 100 unit/mL Insulin Pen 10 unit subcut 1700 Qty: 15 0RF Glucerna 1.2 Josr 0.06-1.2 gram-kcal/mL Liquid 120 ml PO 1400,2200 Qty: 1 0RF insulin glargine-yfgn 100 unit/mL (3 mL) Insulin Pen 24 unit subcut BID@1800,0600 Qty: 1 0RF loperamide 2 mg Capsule 2 mg PO Q4H PRN PRN (Reason: Diarrhea) Qty: 1 0RF magnesium hydroxide 400 mg/5 mL Suspension 30 ml PO X1 PRN (Reason: Constipation) Qty: 1 0RF metoprolol tartrate 50 mg Tablet 50 mg PO TID Qty: 1 0RF mupirocin 2 % Ointment 1 applic topical BID Qty: 1 0RF Protocol: *Topical Application Instructions APPLICATION INSTRUCTIONS: Apply to peg tube site nystatin [Nyamyc] 100,000 unit/gram Powder 1 applic topical BID Qty: 1 0RF Protocol: *Topical Application Instructions APPLICATION INSTRUCTIONS: Apply to groin sertraline 50 mg Tablet 75 mg PO DAILY Qty: 1 0RF clopidogrel 75 mg Tablet 75 mg G-tube DAILY Qty: 1 0RF Rx Instructions: Stop after the last dose on 09/20/24 enoxaparin 40 mg/0.4 mL Syringe 40 mg subcut DAILY Qty: 1 0RF No Action menthol [Blue Gel] 2 % Gel 1 applic topical TID PRN PRN (Reason: Pain 1-10/Inflammation) Qty: 0 0RF Referrals / Follow Up: Emily Yun MD [Primary Care Provider] - Hernando Pandya MD [Non-Staff -Ordering Privileges] - (stroke follow up) Disposition Disposition (needs filled in before D/C Order can be placed): Home Health Service
[2024-10-10 16:36] LABS: Bedside Glucose 283 mg/dL (74-106)
[2024-10-10] MEDS: clonazePAM 0.5 MG Tablet PO (21:08)
[2024-10-10] MEDS: Acetaminophen 325 MG Tablet 650 MG PO (21:08)
[2024-10-10] MEDS: Gabapentin 600 MG Tablet PO (21:08)
[2024-10-10 21:12] LABS: Bedside Glucose 246 mg/dL (74-106)
[2024-10-11] VITALS (7 sets, daily range): BP systolic 113–140; BP diastolic 57–71; PULSE 56–64; RESP 18; TEMP 36.6; O2SAT 99
[2024-10-11] MEDS: Metoprolol Tartrate 50 MG Tablet PO ×3 (06:12→20:51)
[2024-10-11] MEDS: Insulin Glargine-YFGN 100 UNIT/ML Pen 35 UNIT SC ×2 (06:12→17:39)
[2024-10-11] MEDS: Menthol/Lanolin/Calamine/Znox 113 GM Tube 1 APPLIC TOPICAL ×2 (06:13→20:46)
[2024-10-11 06:38] LABS: Bedside Glucose 196 mg/dL (74-106)
--- NOTE | 2024-10-11 07:47 | NURSING ---
This nurse spoke with patient's regarding heart monitor yesterday. Patient's verbalized understanding of directions to send monitor back for results. Patient's took heart monitor home yesterday evening.
[2024-10-11] MEDS: Insulin Lispro 100 UNIT/ML INSULN.PEN 15 UNIT SC ×3 (08:08→17:39)
[2024-10-11] MEDS: Enoxaparin 40 MG/0.4 ML Syringe SC (08:10)
[2024-10-11] MEDS: Gabapentin 300 MG Capsule PO ×2 (08:10→13:28)
[2024-10-11] MEDS: Ipratropium Bromide 0.06% NASAL SPRAY 2 SPRAY NASAL ×2 (08:10→20:47)
[2024-10-11] MEDS: Atorvastatin Calcium 40 MG Tablet PO (08:11)
[2024-10-11] MEDS: Sertraline 50 MG Tablet 75 MG PO (08:11)
[2024-10-11] MEDS: Lisinopril 2.5 MG Tablet PO (08:12)
[2024-10-11] MEDS: Famotidine 20 MG Tablet 40 MG PO (08:12)
[2024-10-11] MEDS: Aspirin 81 MG TAB.CHEW PO (08:12)
[2024-10-11] MEDS: Cholecalciferol (VIT D3) 25 MCG TABLET (1,000 UNITS) PO (08:12)
[2024-10-11] MEDS: clonazePAM 0.5 MG Tablet 0.125 MG PO (08:20)
[2024-10-11] MEDS: Nystatin Powder 15gm Bottle 1 APPLIC TOPICAL ×2 (08:22→20:47)
[2024-10-11] MEDS: Mupirocin Ointment 22gm Tube 1 APPLIC TOPICAL ×2 (10:31→20:48)
[2024-10-11 11:30] LABS: Bedside Glucose 197 mg/dL (74-106)
[2024-10-11] MEDS: Acetaminophen 325 MG Tablet 650 MG PO ×2 (12:28→20:45)
[2024-10-11 16:22] LABS: Bedside Glucose 151 mg/dL (74-106)
[2024-10-11] MEDS: clonazePAM 0.5 MG Tablet PO (20:44)
[2024-10-11] MEDS: Gabapentin 600 MG Tablet PO (20:45)
[2024-10-11] MEDS: MENTHOL 226.8 GM JAR 1 APPLIC TOPICAL (20:47)
[2024-10-11 21:53] LABS: Bedside Glucose 195 mg/dL (74-106)
[2024-10-12 06:14] VITALS: BP 130/58; PULSE 57
[2024-10-12] MEDS: Menthol/Lanolin/Calamine/Znox 113 GM Tube 1 APPLIC TOPICAL ×2 (06:17→09:46)
[2024-10-12] MEDS: Insulin Glargine-YFGN 100 UNIT/ML Pen 35 UNIT SC ×2 (06:18→17:48)
[2024-10-12 06:21] VITALS: BP 130/58; PULSE 57
[2024-10-12] MEDS: Metoprolol Tartrate 50 MG Tablet PO ×3 (06:21→21:26)
[2024-10-12 06:32] LABS: Bedside Glucose 97 mg/dL (74-106)
[2024-10-12] MEDS: Atorvastatin Calcium 40 MG Tablet PO (09:28)
[2024-10-12] MEDS: Aspirin 81 MG TAB.CHEW PO (09:28)
[2024-10-12] MEDS: Lisinopril 2.5 MG Tablet PO (09:29)
[2024-10-12] MEDS: Enoxaparin 40 MG/0.4 ML Syringe SC (09:29)
[2024-10-12] MEDS: Famotidine 20 MG Tablet 40 MG PO (09:29)
[2024-10-12] MEDS: Cholecalciferol (VIT D3) 25 MCG TABLET (1,000 UNITS) PO (09:29)
[2024-10-12] MEDS: Sertraline 50 MG Tablet 75 MG PO (09:30)
[2024-10-12] MEDS: clonazePAM 0.5 MG Tablet 0.125 MG PO (09:35)
[2024-10-12] MEDS: Gabapentin 300 MG Capsule PO ×2 (09:35→14:30)
[2024-10-12] MEDS: Ipratropium Bromide 0.06% NASAL SPRAY 2 SPRAY NASAL ×2 (09:48→21:22)
[2024-10-12] MEDS: Nystatin Powder 15gm Bottle 1 APPLIC TOPICAL ×2 (09:48→21:26)
[2024-10-12] MEDS: Insulin Lispro 100 UNIT/ML INSULN.PEN 15 UNIT SC ×3 (09:48→17:49)
[2024-10-12] MEDS: Mupirocin Ointment 22gm Tube 1 APPLIC TOPICAL ×2 (09:48→21:24)
[2024-10-12 11:20] LABS: Bedside Glucose 195 mg/dL (74-106)
[2024-10-12 14:30] VITALS: BP 139/62; PULSE 70; PULSE 71; RESP 18; TEMP 36.2; O2SAT 97
[2024-10-12 16:23] LABS: Bedside Glucose 208 mg/dL (74-106)
[2024-10-12 21:19] VITALS: BP 125/72; PULSE 63
[2024-10-12] MEDS: clonazePAM 0.5 MG Tablet PO (21:20)
[2024-10-12] MEDS: MENTHOL 226.8 GM JAR 1 APPLIC TOPICAL (21:21)
[2024-10-12] MEDS: Acetaminophen 325 MG Tablet 650 MG PO (21:21)
[2024-10-12] MEDS: Gabapentin 600 MG Tablet PO (21:21)
[2024-10-12 21:26] VITALS: BP 125/72; PULSE 63
[2024-10-12 22:24] LABS: Bedside Glucose 188 mg/dL (74-106)
[2024-10-13] VITALS (7 sets, daily range): BP systolic 120–134; BP diastolic 52–65; PULSE 55–66; RESP 16–18; TEMP 36.4; O2SAT 99
[2024-10-13 05:40] LABS: Absolute Lymphocyte Count 2.78 X10^3/uL (0.83-4.51); Absolute Neutrophil Count 3.6 X10^3/uL (2.0-7.7); Basophil# 0.03 X10^3/uL; Basophil% 0.4 % (0-1); Eosinophil# 0.31 X10^3/uL; Eosinophils% 4.1 % (0-5); Hematocrit 34.1 % (37-47); Hemoglobin 11.5 g/dL (12.0-15.0); Lymphocyte # 2.78 X10^3/ul (0.83-4.51); Lymphocyte % 36.3 % (19-41); Mean Corp Hgb Conc 33.7 g/dL (32-36); Mean Corpuscular Hgb 31.3 pg (27.0-32.0); Mean Corpuscular Volume 92.7 fL (81-99); Mean Platelet Vol. 10.4 fl (6.2-12.0); Monocyte# 0.91 X10^3/uL; Monocyte% 11.9 % (0-10); NRBC Flagged by Analyzer 0 % (0-5); Platelet Count 210 K/mm3 (150-450); RBC Distribution Width CV 13.2 % (11.6-14.6); RBC Distribution Width SD 44.4 fl (35.1-43.9); Red Blood Count 3.68 M/mm3 (4.2-5.4); White Blood Count 7.7 K/mm3 (4.4-11.0)
[2024-10-13] MEDS: Menthol/Lanolin/Calamine/Znox 113 GM Tube 1 APPLIC TOPICAL ×2 (06:06→21:20)
[2024-10-13] MEDS: Metoprolol Tartrate 50 MG Tablet PO ×3 (06:08→21:18)
[2024-10-13] MEDS: Insulin Glargine-YFGN 100 UNIT/ML Pen 35 UNIT SC ×2 (06:09→18:00)
[2024-10-13 06:17] LABS: Bedside Glucose 173 mg/dL (74-106)
[2024-10-13] MEDS: Insulin Lispro 100 UNIT/ML INSULN.PEN 15 UNIT SC ×3 (07:53→17:59)
[2024-10-13] MEDS: Aspirin 81 MG TAB.CHEW PO (07:53)
[2024-10-13] MEDS: Atorvastatin Calcium 40 MG Tablet PO (07:54)
[2024-10-13] MEDS: Famotidine 20 MG Tablet 40 MG PO (07:54)
[2024-10-13] MEDS: Ipratropium Bromide 0.06% NASAL SPRAY 2 SPRAY NASAL ×2 (07:54→21:17)
[2024-10-13] MEDS: Enoxaparin 40 MG/0.4 ML Syringe SC (07:54)
[2024-10-13] MEDS: Mupirocin Ointment 22gm Tube 1 APPLIC TOPICAL ×2 (07:54→21:18)
[2024-10-13] MEDS: Lisinopril 2.5 MG Tablet PO (07:55)
[2024-10-13] MEDS: Cholecalciferol (VIT D3) 25 MCG TABLET (1,000 UNITS) PO (07:55)
[2024-10-13] MEDS: Sertraline 50 MG Tablet 75 MG PO (07:55)
[2024-10-13] MEDS: clonazePAM 0.5 MG Tablet 0.125 MG PO (08:00)
[2024-10-13] MEDS: Gabapentin 300 MG Capsule PO ×2 (08:00→13:44)
[2024-10-13] MEDS: Nystatin Powder 15gm Bottle 1 APPLIC TOPICAL ×2 (08:07→21:19)
[2024-10-13 10:28] LABS: Anion Gap 12 (5-15); BUN 21 mg/dL (4-19); BUN/Creat Ratio 26.2 RATIO (10-20); Calcium 9.2 mg/dL (7.6-11.0); Carbon Dioxide 23.6 mmol/L (22.0-29.0); Chloride 105 mmol/L (96-108); Creatinine, Serum 0.81 mg/dL (0.70-1.20); EST Glomerular Filtration Rate 73 (>60); Estimated Creatinine Clearance 48.72 ml/min (50-250); Glucose 176 mg/dL (70-99); Potassium 3.9 mmol/L (3.3-5.1); Sodium Level 140 mmol/L (133-145)
[2024-10-13 11:20] LABS: Bedside Glucose 268 mg/dL (74-106)
--- NOTE | 2024-10-13 16:16 | NURSING ---
Dr. Pandya with neurology office contacted and F/U appt set for November 11, 2024 at 1400. Appt placed in D/C packet.
[2024-10-13 16:22] LABS: Bedside Glucose 143 mg/dL (74-106)
[2024-10-13] MEDS: Acetaminophen 325 MG Tablet 650 MG PO (21:17)
[2024-10-13] MEDS: Gabapentin 600 MG Tablet PO (21:17)
[2024-10-13] MEDS: clonazePAM 0.5 MG Tablet PO (21:17)
[2024-10-13 21:18] LABS: Bedside Glucose 188 mg/dL (74-106)
[2024-10-14] VITALS (7 sets, daily range): BP systolic 119–135; BP diastolic 55–63; PULSE 54–62; RESP 16; TEMP 36.6; O2SAT 96; BMI 28.0
[2024-10-14] MEDS: Metoprolol Tartrate 50 MG Tablet PO ×3 (06:11→21:21)
[2024-10-14] MEDS: Menthol/Lanolin/Calamine/Znox 113 GM Tube 1 APPLIC TOPICAL ×2 (06:11→21:19)
[2024-10-14 06:21] LABS: Bedside Glucose 84 mg/dL (74-106)
[2024-10-14] MEDS: Acetaminophen 325 MG Tablet 650 MG PO ×3 (06:45→21:16)
[2024-10-14] MEDS: Insulin Glargine-YFGN 100 UNIT/ML Pen 35 UNIT SC (06:45)
[2024-10-14 06:55] LABS: Bedside Glucose 96 mg/dL (74-106)
[2024-10-14] MEDS: Atorvastatin Calcium 40 MG Tablet PO (08:25)
[2024-10-14] MEDS: Aspirin 81 MG TAB.CHEW PO (08:25)
[2024-10-14] MEDS: Cholecalciferol (VIT D3) 25 MCG TABLET (1,000 UNITS) PO (08:26)
[2024-10-14] MEDS: Sertraline 50 MG Tablet 75 MG PO (08:26)
[2024-10-14] MEDS: Lisinopril 2.5 MG Tablet PO (08:26)
[2024-10-14] MEDS: Famotidine 20 MG Tablet 40 MG PO (08:26)
[2024-10-14] MEDS: Enoxaparin 40 MG/0.4 ML Syringe SC (08:27)
[2024-10-14] MEDS: Ipratropium Bromide 0.06% NASAL SPRAY 2 SPRAY NASAL ×2 (08:28→21:18)
[2024-10-14] MEDS: clonazePAM 0.5 MG Tablet 0.125 MG PO (08:33)
[2024-10-14] MEDS: Nystatin Powder 15gm Bottle 1 APPLIC TOPICAL ×2 (08:34→21:20)
[2024-10-14] MEDS: Gabapentin 300 MG Capsule PO ×2 (08:34→13:53)
--- NOTE | 2024-10-14 08:39 | NURSING ---
pt with blood sugar of 84 & rechecked at 96. Dr arguelles aware, reduced both insulins. held humalog this AM. pt refusing to eat, but was able to get pt to eat her yogurt. meds given crushed in naomy pudding per her request.
--- NOTE | 2024-10-14 10:25 | CASEMGMT ---
Social Work SW spoke with pt and at bedside 10/13 to address pt's request to DC home 10/17 vs 10/18 to give pt and alone time prior to family being at the house consistently. SW to speak with dtr, Allen, to ensure she is okay with that as the goal was to have family assist pt for the transition home. Pt/hus expressed understanding. - SW left VM with dtr 10/13. - Received return call from dtr on this date/time. SW explained above request from pt. Dtr stated she is okay with this, as she will be with pt at home, and can stay overnight. SW accepted and will set DC for 10/17. SW informed HHC likely will not change SOC date 10/20 since family will be present. Dtr agreeable. - [place] phoned [facility] to update and confirmed SOC date 10/20 will remain. - [place] updated pt and signed new NOMNC. IDT updated. Plan: DC home with and family support 10/17 Harmony Bhakta ARCHIVIST POLITICAL HISTORY GAS ANALYST
[2024-10-14 11:46] LABS: Bedside Glucose 192 mg/dL (74-106)
[2024-10-14] MEDS: Insulin Lispro 100 UNIT/ML INSULN.PEN 10 UNIT SC ×2 (11:52→17:49)
[2024-10-14 16:37] LABS: Bedside Glucose 179 mg/dL (74-106)
[2024-10-14] MEDS: Insulin Glargine-YFGN 100 UNIT/ML Pen 30 UNIT SC (17:50)
[2024-10-14] MEDS: clonazePAM 0.5 MG Tablet PO (21:17)
[2024-10-14] MEDS: Gabapentin 600 MG Tablet PO (21:18)
[2024-10-14 21:20] LABS: Bedside Glucose 168 mg/dL (74-106)
[2024-10-15] VITALS (7 sets, daily range): BP systolic 114–152; BP diastolic 46–70; PULSE 55–68; RESP 15–16; TEMP 36.1; O2SAT 95–96
[2024-10-15] MEDS: Menthol/Lanolin/Calamine/Znox 113 GM Tube 1 APPLIC TOPICAL ×2 (06:29→21:04)
[2024-10-15] MEDS: Metoprolol Tartrate 50 MG Tablet PO ×3 (06:34→21:03)
[2024-10-15 06:44] LABS: Bedside Glucose 76 mg/dL (74-106)
--- NOTE | 2024-10-15 07:21 | NURSING ---
Patient fasting blood sugar at 0630 was 76, OJ given, rechecked blood sugar at 0645, blood sugar was 83, patient requested more OJ, rechecked blood sugar at 0700, blood sugar was 102, encouraged patient to eat a good breakfast. denies any c/o. Dr. Forbes updated on low blood sugar via written communication.
[2024-10-15] MEDS: clonazePAM 0.5 MG Tablet 0.125 MG PO (08:04)
[2024-10-15] MEDS: Aspirin 81 MG TAB.CHEW PO (08:04)
[2024-10-15] MEDS: Atorvastatin Calcium 40 MG Tablet PO (08:05)
[2024-10-15] MEDS: Gabapentin 300 MG Capsule PO ×2 (08:05→13:51)
[2024-10-15] MEDS: Enoxaparin 40 MG/0.4 ML Syringe SC (08:05)
[2024-10-15] MEDS: cloNIDine HCl 0.2 MG Patch TD (08:05)
[2024-10-15] MEDS: Cholecalciferol (VIT D3) 25 MCG TABLET (1,000 UNITS) PO (08:06)
[2024-10-15] MEDS: Famotidine 20 MG Tablet 40 MG PO (08:06)
[2024-10-15] MEDS: Sertraline 50 MG Tablet 75 MG PO (08:06)
[2024-10-15] MEDS: Lisinopril 2.5 MG Tablet PO (08:06)
[2024-10-15] MEDS: Ipratropium Bromide 0.06% NASAL SPRAY 2 SPRAY NASAL ×2 (08:07→21:03)
[2024-10-15] MEDS: Nystatin Powder 15gm Bottle 1 APPLIC TOPICAL ×2 (08:08→21:03)
[2024-10-15] MEDS: Insulin Glargine-YFGN 100 UNIT/ML Pen 20 UNIT SC ×2 (08:09→17:11)
--- NOTE | 2024-10-15 08:25 | NURSING ---
pt eating brkfst, dr arguelles adjusted insulins this AM, pt ok to take 20 units glargine this AM. will monitor sugars this shift before meals. pt sitting in recliner chair finishing up yogurt. pleasant and cooperative.
[2024-10-15 11:50] LABS: Bedside Glucose 241 mg/dL (74-106)
[2024-10-15 16:50] LABS: Bedside Glucose 219 mg/dL (74-106)
[2024-10-15] MEDS: Acetaminophen 325 MG Tablet 650 MG PO (21:02)
[2024-10-15] MEDS: Gabapentin 600 MG Tablet PO (21:02)
[2024-10-15] MEDS: clonazePAM 0.5 MG Tablet PO (21:02)
[2024-10-15 22:11] LABS: Bedside Glucose 259 mg/dL (74-106)
[2024-10-16 06:17] VITALS: BP 121/59; PULSE 58
[2024-10-16] MEDS: Metoprolol Tartrate 50 MG Tablet PO ×3 (06:17→21:01)
[2024-10-16] MEDS: Insulin Glargine-YFGN 100 UNIT/ML Pen 20 UNIT SC (06:17)
[2024-10-16] MEDS: Menthol/Lanolin/Calamine/Znox 113 GM Tube 1 APPLIC TOPICAL ×2 (06:18→21:02)
[2024-10-16 06:23] VITALS: BP 121/59; PULSE 58
[2024-10-16 06:41] LABS: Bedside Glucose 155 mg/dL (74-106)
[2024-10-16 09:27] VITALS: BP 139/76; PULSE 66; RESP 18; TEMP 36.2; O2SAT 96
[2024-10-16] MEDS: Acetaminophen 325 MG Tablet 650 MG PO ×2 (09:28→21:00)
[2024-10-16] MEDS: Gabapentin 300 MG Capsule PO ×2 (09:28→13:27)
[2024-10-16] MEDS: Aspirin 81 MG TAB.CHEW PO (09:28)
[2024-10-16] MEDS: Atorvastatin Calcium 40 MG Tablet PO (09:28)
[2024-10-16] MEDS: Famotidine 20 MG Tablet 40 MG PO (09:29)
[2024-10-16] MEDS: Sertraline 50 MG Tablet 75 MG PO (09:29)
[2024-10-16] MEDS: Enoxaparin 40 MG/0.4 ML Syringe SC (09:29)
[2024-10-16] MEDS: Lisinopril 2.5 MG Tablet PO (09:30)
[2024-10-16] MEDS: Ipratropium Bromide 0.06% NASAL SPRAY 2 SPRAY NASAL ×2 (09:30→21:02)
[2024-10-16] MEDS: Nystatin Powder 15gm Bottle 1 APPLIC TOPICAL ×2 (09:30→21:03)
[2024-10-16] MEDS: Cholecalciferol (VIT D3) 25 MCG TABLET (1,000 UNITS) PO (09:30)
[2024-10-16] MEDS: clonazePAM 0.5 MG Tablet 0.125 MG PO (09:38)
[2024-10-16 10:01] LABS: Bedside Glucose 83 mg/dL (74-106)
[2024-10-16 10:01] LABS: Bedside Glucose 102 mg/dL (74-106)
--- NOTE | 2024-10-16 11:13 | CASEMGMT ---
Social Work SW completed BIMS () and PHQ-2 () for MDS assessment. Harmony Bhakta SKIN DIVER BUTTON CUTTING MACHINE OPERATOR
[2024-10-16 11:39] LABS: Bedside Glucose 373 mg/dL (74-106)
--- NOTE | 2024-10-16 12:08 | CASEMGMT ---
Social Work SW completed BIMS () and PHQ-2 () for MDS assessment. Harmony Bhakta ENDOSCOPY SUPPORT SPECIALIST FIRE MANAGER
[2024-10-16 13:27] VITALS: BP 144/63; PULSE 69
[2024-10-16 16:48] LABS: Bedside Glucose 243 mg/dL (74-106)
[2024-10-16] MEDS: Insulin Glargine-YFGN 100 UNIT/ML Pen 30 UNIT SC (17:01)
[2024-10-16] MEDS: clonazePAM 0.5 MG Tablet PO (20:59)
[2024-10-16] MEDS: Gabapentin 600 MG Tablet PO (21:00)
[2024-10-16 21:01] VITALS: BP 159/74; PULSE 65
[2024-10-16 21:22] VITALS: BP 159/74; PULSE 65
[2024-10-16 21:44] LABS: Bedside Glucose 306 mg/dL (74-106)
--- NOTE | 2024-10-16 22:15 | NURSING ---
Patient c/o burning with urination and increased urinary frequency. Patient reports these symptoms began this afternoon. Patient's urine has strong odor, unable to assess d/t incontinence. Patient expresses concerns since she is to D/C home tomorrow afternoon. This nurse consulted Dr. Forbes via telephone. Per Dr. Forbes, new orders for UA/C&S. Orders read back and verified. Will update Dr. Forbes on results.
[2024-10-16 23:57] LABS: Mucous, Urine 0 SEEN /hpf (<or=2+)
[2024-10-16 23:58] LABS: Color, Urine Yellow (Yellow); Glucose, Dipstick 1000 mg/dl (Normal); Ketone-Dipstick Negative (Negative); Leukocyte Esterase-Dipstick 500 /ul (Negative); Nitrite-Dipstick Negative (Negative); Occult Blood-Urine 25 /ul (Negative); Protein-Dipstick 100 mg/dl (Negative); Urine Bilirubin Dipstick Negative (Negative); Urine Clarity Sl. Cloudy (Clear); Urine Urobilinogen Normal (Normal)
[2024-10-17 00:05] LABS: Amorphous Sediment 1+ URATE; Bacteria 2+ /hpf (None Seen); Red Blood Cells-Urine 0-5 SEEN /hpf (0-5); Squamous Epithelial Cells - UA 0-5 SEEN /hpf (5-10); White Blood Cells 50-100 SEEN /hpf (0-5)
[2024-10-17 06:00] VITALS: BP 151/62; PULSE 54
[2024-10-17] MEDS: Metoprolol Tartrate 50 MG Tablet PO (06:00)
[2024-10-17] MEDS: Insulin Glargine-YFGN 100 UNIT/ML Pen 30 UNIT SC (06:01)
[2024-10-17] MEDS: Menthol/Lanolin/Calamine/Znox 113 GM Tube 1 APPLIC TOPICAL (06:06)
[2024-10-17 06:08] VITALS: PULSE 54; RESP 14; O2SAT 96
[2024-10-17 06:17] LABS: Bedside Glucose 178 mg/dL (74-106)
[2024-10-17 06:18] VITALS: BP 151/62; PULSE 54
[2024-10-17 08:02] VITALS: BP 122/57; PULSE 58; RESP 16; TEMP 36.3; O2SAT 99
[2024-10-17] MEDS: Atorvastatin Calcium 40 MG Tablet PO (08:05)
[2024-10-17] MEDS: Gabapentin 300 MG Capsule PO (08:05)
[2024-10-17] MEDS: clonazePAM 0.5 MG Tablet 0.125 MG PO (08:05)
[2024-10-17] MEDS: Enoxaparin 40 MG/0.4 ML Syringe SC (08:05)
[2024-10-17] MEDS: Aspirin 81 MG TAB.CHEW PO (08:05)
[2024-10-17] MEDS: Famotidine 20 MG Tablet 40 MG PO (08:05)
[2024-10-17] MEDS: Ipratropium Bromide 0.06% NASAL SPRAY 2 SPRAY NASAL (08:05)
[2024-10-17] MEDS: Cholecalciferol (VIT D3) 25 MCG TABLET (1,000 UNITS) PO (08:06)
[2024-10-17] MEDS: Lisinopril 2.5 MG Tablet PO (08:06)
[2024-10-17] MEDS: Sertraline 50 MG Tablet 75 MG PO (08:06)
[2024-10-17] MEDS: Nystatin Powder 15gm Bottle 1 APPLIC TOPICAL (08:07)
[2024-10-17] MEDS: Nitrofurantoin Macrocrystals 100 MG Capsule PO (08:12)
--- NOTE | 2024-10-17 08:19 | NURSING ---
DR CLAIRE ORDERED MACROBID FOR UTI, 1ST DOSE GIVEN. PT WAS HAVING BURNING WITH URINATION & FREQUENCY. CLONIDINE PATCH INTACT TO LT SHOULDER.
[2024-10-17 11:23] LABS: Bedside Glucose 380 mg/dL (74-106)
--- NOTE | 2024-10-17 11:29 | NURSING ---
dr arguelles notified of blood sugar 380 before lunch, new order to administer 10 units lispro x1 now. pt, and daughter updated & will continue to monitor sugars. pt to see dr ocampo on sunday at 10am.
[2024-10-17] MEDS: Insulin Lispro 100 UNIT/ML INSULN.PEN 10 UNIT SC (11:35)
== END 2024-10-17 11:50 | disposition home health service (06) | DRG 57 ==
PROVIDERS: Admitting Provider Family Medicine Geriatric Medicine; PCP Internal Medicine; Visit Provider Family Medicine Geriatric Medicine
DX: I69.391 Dysphagia following cerebral infarction (principal); N30.00 Acute cystitis without hematuria; Z93.1 Gastrostomy status; B35.4 Tinea corporis; E13.42 Other specified diabetes mellitus with diabetic polyneuropathy; E13.65 Other specified diabetes mellitus with hyperglycemia; B37.31 Acute candidiasis of vulva and vagina; I10 Essential (primary) hypertension; E55.9 Vitamin D deficiency, unspecified; Z79.4 Long term (current) use of insulin; K21.9 Gastro-esophageal reflux disease without esophagitis; M54.31 Sciatica, right side; E78.2 Mixed hyperlipidemia; F41.9 Anxiety disorder, unspecified; G31.84 Mild cognitive impairment of uncertain or unknown etiology; Z79.01 Long term (current) use of anticoagulants; Z79.84 Long term (current) use of oral hypoglycemic drugs; Z79.82 Long term (current) use of aspirin; Z79.02 Long term (current) use of antithrombotics/antiplatelets; Z79.83 Long term (current) use of bisphosphonates; Z79.899 Other long term (current) drug therapy
CPT/HCPCS: 36415; 80048; 81001; 82962; 85025; 87086; 87088; 87811; 92523; 92526; 92610; 92611; 92612; 97110; 97116; 97129; 97130; 97162; 97166; 97530; 97535; 97802; 97803

== ENCOUNTER → 2024-11-03 | Outpatient (CLI) | payer MEDICARE, OTHER, SELFPAY ==
[2024-11-03 22:28] LABS: Glucose 151 mg/dL (70-99)
[2024-11-03 23:14] LABS: Cholesterol 157 mg/dL (<=200); High Density Lipoprotein 44 mg/dL; Low Density Lipoprotein Calc. 74 mg/dL; Triglycerides 196 mg/dL; Very Low Density Lipoprotein 39 mg/dL (5-40); cholesterol:hdl ratio screen 3.54
== END | disposition home or self-care (01) ==
LOC: BIMLAB 11:55
PROVIDERS: Internal Medicine; PCP Internal Medicine; Referring Provider Internal Medicine Endocrinology, Diabetes & Metabolism; Visit Provider Internal Medicine Endocrinology, Diabetes & Metabolism
DX: E03.9 Hypothyroidism, unspecified (principal); E13.9 Other specified diabetes mellitus without complications
CPT/HCPCS: 36415; 80061; 82947; 84443; 84681

== ENCOUNTER → 2024-12-08 | Outpatient (CLI) | payer MEDICARE, OTHER, SELFPAY ==
[2024-12-08 15:47] LABS: Absolute Lymphocyte Count 1.28 X10^3/uL (0.83-4.51); Absolute Neutrophil Count 4.6 X10^3/uL (2.0-7.7); Basophil# 0.06 X10^3/uL; Basophil% 0.9 % (0-1); Eosinophil# 0.28 X10^3/uL; Eosinophils% 4.1 % (0-5); Hematocrit 37.9 % (37-47); Hemoglobin 12.5 g/dL (12.0-15.0); Lymphocyte # 1.28 X10^3/ul (0.83-4.51); Lymphocyte % 18.9 % (19-41); Mean Corpuscular Hgb 31.8 pg (27.0-32.0); Mean Corpuscular Volume 96.4 fL (81-99); Mean Platelet Vol. 12.6 fl (6.2-12.0); Monocyte# 0.58 X10^3/uL; Monocyte% 8.5 % (0-10); NRBC Flagged by Analyzer 0 % (0-5); Neutrophil # 4.57 X10^3/uL (2.7-7.7); Neutrophil % 67.3 % (47-70); Platelet Count 155 K/mm3 (150-450); RBC Distribution Width CV 12.8 % (11.6-14.6); RBC Distribution Width SD 46.1 fl (35.1-43.9); Red Blood Count 3.93 M/mm3 (4.2-5.4); White Blood Count 6.8 K/mm3 (4.4-11.0)
[2024-12-08 16:11] LABS: Anion Gap 12 (5-15); BUN 22 mg/dL (4-19); BUN/Creat Ratio 16.5 RATIO (10-20); Calcium,Total 10.1 mg/dL (7.6-11.0); Carbon Dioxide 21.2 mmol/L (21.0-32.0); Chloride 106 mmol/L (98-108); Creatinine, Serum 1.35 mg/dL (0.70-1.20); EST Glomerular Filtration Rate 39 (>60); Glucose 99 mg/dL (70-99); Potassium 3.9 mmol/L (3.3-5.1); Sodium Level 140 mmol/L (133-145)
== END | disposition home or self-care (01) ==
PROVIDERS: PCP Internal Medicine; Referring Provider Internal Medicine Infectious Disease; Visit Provider Internal Medicine Infectious Disease
DX: B37.49 Other urogenital candidiasis (principal)
CPT/HCPCS: 36415; 80048; 85025

== ENCOUNTER → 2024-12-15 | Outpatient (CLI) | payer MEDICARE, OTHER, SELFPAY ==
--- NOTE | 2024-12-15 14:58 | RAD_ITS ---
EXAM: DX scapula CLINICAL HISTORY: Pain TECHNIQUE: Two views, 3 total images FINDINGS: No fracture identified. No dislocation glenohumeral joint. Acromioclavicular joint appears intact. RAD/Scapula IMPRESSION: No fracture identified. Reading Location: [id number]
--- NOTE | 2024-12-15 14:58 | RAD_ITS ---
EXAM: DX ribs unilateral minimum three views with PA chest CLINICAL HISTORY: Pain post fall COMPARISON: 08/25/2024 TECHNIQUE: PA view of the chest in 4 images right ribs, 5 total images FINDINGS: The lungs appear clear. The cardiac and mediastinal contours appear within limits. S shaped thoracolumbar scoliosis, curvature. No acute fracture identified. RAD/Ribs Uni Min 3V w/PA Chest IMPRESSION: No evidence of acute disease. Reading Location: [id number]
== END | disposition home or self-care (01) ==
LOC: MTRAD 14:58
PROVIDERS: PCP Internal Medicine; Referring Provider Physician Assistant; Visit Provider Physician Assistant
DX: R07.89 Other chest pain (principal); M89.8X1 Other specified disorders of bone, shoulder
CPT/HCPCS: 71101; 73010

== ENCOUNTER 2025-03-31 13:00 | Outpatient (CLI) | payer MEDICARE, OTHER, SELFPAY ==
[2025-04-01 14:18] LABS: Hematocrit 36.5 % (37-47); Hemoglobin 12.3 g/dL (12.0-15.0); Mean Corp Hgb Conc 33.7 g/dL (32-36); Mean Corpuscular Volume 91.3 fL (81-99); Mean Platelet Vol. 10.3 fl (6.2-12.0); Platelet Count 287 K/mm3 (150-450); RBC Distribution Width CV 12.9 % (11.6-14.6); RBC Distribution Width SD 42.3 fl (35.1-43.9); Red Blood Count 4.00 M/mm3 (4.2-5.4); White Blood Count 7.9 K/mm3 (4.4-11.0)
[2025-04-01 14:29] LABS: Prothrombin Time (Protime)PT. 13.3 SECONDS (11.7-14.9)
[2025-04-01 14:30] LABS: Partial Thromboplast Time 25.4 Seconds (24.1-36.2)
[2025-04-01 15:51] LABS: AST(SGOT) 18 U/L (<=31); Alanine Aminotransfer ALT/SGPT 15 U/L (<=34); Albumin, Serum 4.1 g/dL (3.4-4.8); Alkaline Phosphatase 114 U/L (35-104); Anion Gap 12 (5-15); BUN 17 mg/dL (4-19); BUN/Creat Ratio 27.9 RATIO (10-20); Bilirubin, Direct 0.19 mg/dL (0.00-0.30); Calcium,Total 9.3 mg/dL (7.6-11.0); Carbon Dioxide 26.5 mmol/L (21.0-32.0); Chloride 104 mmol/L (98-108); Globulin 2.9 g/dL (2.2-4.2); Glucose 110 mg/dL (70-99); Potassium 4.0 mmol/L (3.3-5.1)
--- NOTE | 2025-04-02 13:21 | EKG12_ITS ---
Test Reason : PRE OP Blood Pressure : */* mmHG Vent. Rate : 68 BPM Atrial Rate : 68 BPM P-R Int : 176 ms QRS Dur : 74 ms QT Int : 422 ms P-R-T Axes : * -15 48 degrees QTcB Int : 448 ms Normal sinus rhythm Minimal voltage criteria for LVH, may be normal variant Junctional ST depression, probably normal Borderline ECG When compared with ECG of 25-Aug-2024 12:11, NM interval has decreased T wave inversion no longer evident in Lateral leads Confirmed by RIVKA SEPULVEDA, LESLIE ([id number]), state editor PAIGE CARLOS ([id number]) on 04/06/2025 6:33:36 AM Referred By: Violette Don Confirmed By: LESLIE TINEO MD
--- NOTE | 2025-04-02 14:34 | PAT.ANE_ITS ---
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 When Was Last Pacemaker Check QUESTION #4 FULL TEXT: You/Your Family Experience fever (hyperthermia) with Anesthesia Last Oral Intake Last Oral intake: Last Oral Intake NPO since Meds taken in AM with sips of water? Meds patient instructed to take am of surgery PONV PONV - cable television line technician: PONV - cable television line technician Female Yes 03/31/25 13:07 HX of Motion Sickness No 03/31/25 13:07 HX of N/V After Surgery No 03/31/25 13:07 Non-Smoker Yes 03/31/25 13:07 Duration of Surgery greater Yes 03/31/25 13:07 than 60 minutes Number of Risk Factors 3 03/31/25 13:07 PONV Score Moderate Risk 03/31/25 13:07 Height & Weight Height & Weight: Anesthesia: Height & Weight Height 5 ft 2 in 02/26/25 13:07 Respiratory Assessment Respiratory Assessment - cable television line technician: Respiratory Tract Infection Hx - cable television line technician Hx Respiratory Tract Infection No 03/31/25 13:07 STOP Sleep Apnea STOP Sleep Apnea - cable television line technician: STOP Sleep Apnea - cable television line technician Hx Hypertension Yes: CONTROLLED WITH MED 03/31/25 13:07 Hx Sleep Apnea No 03/31/25 13:07 CPAP BIPAP Do you snore loudly (louder Yes 03/31/25 13:07 than talking or can be heard Do you often feel tired/ Yes 03/31/25 13:07 fatigued/ sleepy during daytime? Has anyone observed you stop No 03/31/25 13:07 breathing during sleep? STOP Results Positive 03/31/25 13:07 QUESTION #5 FULL TEXT : Do you snore loudly (louder than talking or can be heard through closed doors)? 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 Specify any problems Hx of Preganancy in last 3 No 03/31/25 13:07 Months Nurse Filling Out Transfusion DSCHRIBER 03/31/25 13:07 & Questions: Date: 03/31/25 03/31/25 13:07 Time: 13:09 03/31/25 13:07 Patient unable to answer at this time (ie. confused, unrespo /Reproduction History /Reproductive History - cable television line technician: /Reproductive Hx- cable television line technician Hx Now No 03/31/25 13:07 Gestational Age (in weeks): EDC: Hx Hx Para Hx Section SAB No 03/31/25 13:07 PFSH Medical History (Updated 04/01/25 @ 10:[address] Violette Don MD) Overactive bladder Nocturia Stress incontinence Urge incontinence Low iron Stroke/cerebrovascular accident Injury of head and neck Loss of consciousness Difficulty swallowing History of ulceration Cardiology follow-up encounter History of Holter monitoring Presence of insulin pump Osteopenia Proteinuria due to type 2 diabetes mellitus Lumbar radiculopathy, chronic Anxiety and depression Carotid artery stenosis Abnormal urinalysis Facial droop Chronic prescription benzodiazepine use Hypoxia Wears glasses MRSA infection History of Clostridium difficile infection Cancer Insulin dependent diabetes mellitus Walker as ambulation aid Arthritis Bladder disease Easy bruising Injury of back Back pain Unsteady gait Dietary restriction Non-smoker Chronic cough Hoarseness Leg cramps History of edema History of echocardiogram History of stress test Lumbar scoliosis Herniation of intervertebral disc at L3-L4 level Hyperlipidemia Debility Fatigue Mild cognitive impairment Overweight (BMI 25.0-29.9) Migraine without aura, not intractable, without status migrainosus Polyneuropathy Abnormal finding on thyroid function test Acute ischemic stroke 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 Acute gastritis Enlargement of lymph nodes Restless legs GERD (gastroesophageal reflux disease) Essential (primary) hypertension Home Medications ?Medication ?Instructions ?Recorded ?Last Taken ?Type cholecalciferol (vitamin D3) 25 25 mcg PO DAILY 30 day s #30 tabs 10/10/24 Unknown Rx mcg (1,000 unit) tablet vit C 250 mg-vit E 90 mg-zinc 40 1 tab PO BID 11/11/24 Unknown History mg-copper 1 [id number]-wgyfuo-vxswrm capsule (PreserVision AREDS-2) famotidine 20 mg tablet 40 mg (2 x 20 mg) PO DAILY 3 0 days 11/27/24 Unknown Rx #60 tabs Lactobacillus acidophilus 1,200 mg PO QDAY 01/01/25 Un known History (Acidophilus capsule) ascorbic acid (vitamin C) 500 mg 500 mg PO QDAY Unknown History tablet clonazepam 0.5 mg tablet 0.5 mg PO 2000 30 days #30 t abs 01/01/25 Unknown Rx methenamine hippurate 1 gram tablet 1 g PO BID 5 Unknown History vibegron 75 mg tablet (Gemtesa) 75 mg PO QDAY 01/01/25 Unknown History Handicap Placard #1 ea 01/06/25 Unknown Rx lisinopril 2.5 mg tablet 2.5 mg PO DAILY 30 days #90 tabs 01/28/25 Unknown Rx aspirin 81 mg chewable tablet 162 mg PO BREAKFAST [facility] 02/04/25 Unknown History clonidine 0.2 mg/24 hr weekly 0.2 mg transdermal We@10 00 30 days 02/16/25 Unknown Rx transdermal patch #4 ea duloxetine 60 mg capsule,delayed 60 mg PO QAM #30 caps 02/27/25 Unknown Rx release insulin pump cart,auto,BT,G6/7 #30 ea 02/27/25 Unknown Rx (Omnipod 5 G6-G7 Pods (Gen 5) subcutaneous cartridge) ipratropium bromide 42 mcg (0.06 2 spray NASAL BID 30 days #15 mL 03/02/25 Unknown Rx %) nasal spray metoprolol tartrate 50 mg tablet 50 mg PO TID 30 days #270 tabs 03/02/25 Unknown Rx insulin lispro 100 unit/mL 70 unit (0.7 mL) subcut KATY LY #20 03/30/25 Unknown Rx subcutaneous solution (Humalog mL U-100 Insulin) cyanocobalamin (vitamin B-12) 1,000 mcg PO DAILY 03/31 Unknown History 1,000 mcg capsule Allergy/AdvReac Type Severity Reaction Status Date / Time shrimp Allergy Unknown unknown Verified 04/01/25 09:55 adhesive tape Allergy Hives/Rash Verified 04/01/25 09:55 ciprofloxacin (From Cipro) Allergy Photosensitivity Verified 04/01/25 09:55 & dermatitis pioglitazone (From Actos) Allergy Unknown Verified 04/01/25 09:55 codeine AdvReac Upset Verified 04/01/25 09:55 Stomach ibandronate sodium (From AdvReac GI Verified 04/01/25 09:55 Boniva) upset/esophageal burning ibuprofen AdvReac GI upset Verified 04/01/25 09:55 iodine AdvReac Vomiting Verified 04/01/25 09:55 lansoprazole AdvReac Diarrhea Verified 04/01/25 09:55 metformin AdvReac Diarrhea Verified 04/01/25 09:55 miconazole (From Neosporin AdvReac Rash/Bliste Verified 04/01/25 09:55 AF) rs nabumetone (From Relafen) AdvReac GI upset Verified 04/01/25 09:55 pantoprazole (From Protonix) AdvReac Diarrhea Verified 04/01/25 09:55 sucralfate (From Carafate) AdvReac feels Verified 04/01/25 09:55 poorly Family History Father Lung cancer Colon cancer Mother Mesothelioma Hypertension Grandmother Heart disease Other Arthritis Asthma Breast cancer CVA (cerebral vascular accident) Cancer Diabetes Hyperlipidemia Osteoporosis Surgical History Hx of colonoscopy Hx of right cataract extraction Hx of left cataract extraction History of lobectomy of lung History of lung biopsy H/O endoscopy Spinal injections S/P rotator cuff repair Social History adopted: No household members: spouse housing: house number of children: 4 current occupational status: retired current occupation: Worked at the [employer] pets and animals: No sexually active: No Smoking Status: Never smoker second hand exposure: No alcohol intake: never substance use type: does not use diet: diabetic caffeine: No what type of physical activity do you participate in: other details: PT & OT frequency: 1-2 times per week do you feel safe at home: Yes Audit: Pertinent Findings Pertinent Findings EKG Perinent findings: EKG dated August 25, 2024: Sinus rhythm with first- degree AV block, nonspecific ST and T wave abnormality, abnormal EKG. Stress test pertinent findings: Stress test dated 03/14/2017. Conclusion: Exercise stress test with no EKG changes noted at a moderate workload. Failure to obtain 85% of maximum predicted heart rate may affect sensitivity for detection of ischemia. Echo (EF%) pertinent findings: Echocardiogram dated 08/26/2024. Interpretation Summary Normal LV size. Left ventricular systolic function is normal. The left ventricular ejection fraction is 60 %. Previous negative bubble study. Additional pertinent findings: Holter monitor performed 09/05/2024 The predominant rhythm is sinus. The maximum heart rate recorded was 162 bpm and the lowest was 60 bpm, the average heart rate was 78. There were 4 occurrences of SVT. Recommendation Anesthesia Recommendation Anesthesia recommendation: OPTIMIZED for anesthesia (Patient has a well- functioning heart with episodic SVT that is well-controlled.)
--- NOTE | 2025-04-03 13:30 | PAT.ANESEVAL ---
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 When Was Last Pacemaker Check QUESTION #4 FULL TEXT: You/Your Family Experience fever (hyperthermia) with Anesthesia Last Oral Intake Last Oral intake: Last Oral Intake NPO since Meds taken in AM with sips of water? Meds patient instructed to take am of surgery PONV PONV - photoengraving retoucher: PONV - photoengraving retoucher Female Yes 03/31/25 13:07 HX of Motion Sickness No 03/31/25 13:07 HX of N/V After Surgery No 03/31/25 13:07 Non-Smoker Yes 03/31/25 13:07 Duration of Surgery greater Yes 03/31/25 13:07 than 60 minutes Number of Risk Factors 3 03/31/25 13:07 PONV Score Moderate Risk 03/31/25 13:07 Height & Weight Height & Weight: Anesthesia: Height & Weight Height 5 ft 2 in 02/26/25 13:07 Respiratory Assessment Respiratory Assessment - photoengraving retoucher: Respiratory Tract Infection Hx - photoengraving retoucher Hx Respiratory Tract Infection No 03/31/25 13:07 STOP Sleep Apnea STOP Sleep Apnea - photoengraving retoucher: STOP Sleep Apnea - photoengraving retoucher Hx Hypertension Yes: CONTROLLED WITH MED 03/31/25 13:07 Hx Sleep Apnea No 03/31/25 13:07 CPAP BIPAP Do you snore loudly (louder Yes 03/31/25 13:07 than talking or can be heard Do you often feel tired/ Yes 03/31/25 13:07 fatigued/ sleepy during daytime? Has anyone observed you stop No 03/31/25 13:07 breathing during sleep? STOP Results Positive 03/31/25 13:07 QUESTION #5 FULL TEXT : Do you snore loudly (louder than talking or can be heard through closed doors)? 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 Specify any problems Hx of Preganancy in last 3 No 03/31/25 13:07 Months Nurse Filling Out Transfusion DSCHRIBER 03/31/25 13:07 & Questions: Date: 03/31/25 03/31/25 13:07 Time: 13:09 03/31/25 13:07 Patient unable to answer at this time (ie. confused, unrespo /Reproduction History /Reproductive History - photoengraving retoucher: /Reproductive Hx- photoengraving retoucher Hx Now No 03/31/25 13:07 Gestational Age (in weeks): EDC: Hx Hx Para Hx Section SAB No 03/31/25 13:07 PFSH Medical History (Updated 04/01/25 @ 10:[address] Violette Don MD) Overactive bladder Nocturia Stress incontinence Urge incontinence Low iron Stroke/cerebrovascular accident Injury of head and neck Loss of consciousness Difficulty swallowing History of ulceration Cardiology follow-up encounter History of Holter monitoring Presence of insulin pump Osteopenia Proteinuria due to type 2 diabetes mellitus Lumbar radiculopathy, chronic Anxiety and depression Carotid artery stenosis Abnormal urinalysis Facial droop Chronic prescription benzodiazepine use Hypoxia Wears glasses MRSA infection History of Clostridium difficile infection Cancer Insulin dependent diabetes mellitus Walker as ambulation aid Arthritis Bladder disease Easy bruising Injury of back Back pain Unsteady gait Dietary restriction Non-smoker Chronic cough Hoarseness Leg cramps History of edema History of echocardiogram History of stress test Lumbar scoliosis Herniation of intervertebral disc at L3-L4 level Hyperlipidemia Debility Fatigue Mild cognitive impairment Overweight (BMI 25.0-29.9) Migraine without aura, not intractable, without status migrainosus Polyneuropathy Abnormal finding on thyroid function test Acute ischemic stroke 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 Acute gastritis Enlargement of lymph nodes Restless legs GERD (gastroesophageal reflux disease) Essential (primary) hypertension Home Medications ?Medication ?Instructions ?Recorded ?Last Taken ?Type cholecalciferol (vitamin D3) 25 25 mcg PO DAILY 30 days #30 tabs 10/10/24 Unknown Rx mcg (1,000 unit) tablet vit C 250 mg-vit E 90 mg-zinc 40 1 tab PO BID 11/11/24 Unknown History mg-copper 1 al-ltvenh-qkapuv capsule (PreserVision AREDS-2) famotidine 20 mg tablet 40 mg (2 x 20 mg) PO DAILY 30 days 11/27/24 Unknown Rx #60 tabs Lactobacillus acidophilus 1,200 mg PO QDAY 01/01/25 Unknown History (Acidophilus capsule) ascorbic acid (vitamin C) 500 mg 500 mg PO QDAY 01/01/25 Unknown History tablet clonazepam 0.5 mg tablet 0.5 mg PO 2000 30 days #30 tabs 01/01/25 Unknown Rx methenamine hippurate 1 gram tablet 1 g PO BID 01/01/25 Unknown History vibegron 75 mg tablet (Gemtesa) 75 mg PO QDAY 01/01/25 Unknown History Handicap Placard #1 ea 01/06/25 Unknown Rx lisinopril 2.5 mg tablet 2.5 mg PO DAILY 30 days #90 tabs 01/28/25 Unknown Rx aspirin 81 mg chewable tablet 162 mg PO BREAKFAST [facility] 02/04/25 Unknown History clonidine 0.2 mg/24 hr weekly 0.2 mg transdermal We@1000 30 days 02/16/25 Unknown Rx transdermal patch #4 ea duloxetine 60 mg capsule,delayed 60 mg PO QAM #30 caps 02/27/25 Unknown Rx release insulin pump cart,auto,BT,G6/7 #30 ea 02/27/25 Unknown Rx (Omnipod 5 G6-G7 Pods (Gen 5) subcutaneous cartridge) ipratropium bromide 42 mcg (0.06 2 spray NASAL BID 30 days #15 mL 03/02/25 Unknown Rx %) nasal spray metoprolol tartrate 50 mg tablet 50 mg PO TID 30 days #270 tabs 03/02/25 Unknown Rx insulin lispro 100 unit/mL 70 unit (0.7 mL) subcut DAILY #20 03/30/25 Unknown Rx subcutaneous solution (Humalog mL U-100 Insulin) cyanocobalamin (vitamin B-12) 1,000 mcg PO DAILY 03/31/25 Unknown History 1,000 mcg capsule Allergy/AdvReac Type Severity Reaction Status Date / Time shrimp Allergy Unknown unknown Verified 04/01/25 09:55 adhesive tape Allergy Hives/Rash Verified 04/01/25 09:55 ciprofloxacin (From Cipro) Allergy Photosensitivity Verified 04/01/25 09:55 & dermatitis pioglitazone (From Actos) Allergy Unknown Verified 04/01/25 09:55 codeine AdvReac Upset Verified 04/01/25 09:55 Stomach ibandronate sodium (From AdvReac GI Verified 04/01/25 09:55 Boniva) upset/esophageal burning ibuprofen AdvReac GI upset Verified 04/01/25 09:55 iodine AdvReac Vomiting Verified 04/01/25 09:55 lansoprazole AdvReac Diarrhea Verified 04/01/25 09:55 metformin AdvReac Diarrhea Verified 04/01/25 09:55 miconazole (From Neosporin AdvReac Rash/Bliste Verified 04/01/25 09:55 AF) rs nabumetone (From Relafen) AdvReac GI upset Verified 04/01/25 09:55 pantoprazole (From Protonix) AdvReac Diarrhea Verified 04/01/25 09:55 sucralfate (From Carafate) AdvReac feels Verified 04/01/25 09:55 poorly Family History Father Lung cancer Colon cancer Mother Mesothelioma Hypertension Grandmother Heart disease Other Arthritis Asthma Breast cancer CVA (cerebral vascular accident) Cancer Diabetes Hyperlipidemia Osteoporosis Surgical History Hx of colonoscopy Hx of right cataract extraction Hx of left cataract extraction History of lobectomy of lung History of lung biopsy H/O endoscopy Spinal injections S/P rotator cuff repair Social History adopted: No household members: spouse housing: house number of children: 4 current occupational status: retired current occupation: Worked at [employer] pets and animals: No sexually active: No Smoking Status: Never smoker second hand exposure: No alcohol intake: never substance use type: does not use diet: diabetic caffeine: No what type of physical activity do you participate in: other details: PT & OT frequency: 1-2 times per week do you feel safe at home: Yes Audit: Pertinent Findings HISTORY of Pertinent Findings History of Pertinent Findings: EKG Pertinent Findings EKG Perinent findings EKG dated August 25, 2024: 04/02/25 14:39 Sinus rhythm with first- degree AV block, nonspecific ST and T wave abnormality, abnormal EKG. Stress Test Pertinent Findings Stress test pertinent findings Stress test dated 03/14/2017. 04/02/25 14:39 Conclusion: Exercise stress test with no EKG changes noted at a moderate workload. Failure to obtain 85% of maximum predicted heart rate may affect sensitivity for detection of ischemia. Echo Pertinent Findings Echo (EF%) pertinent findings Echocardiogram dated 04/02/25 14:39 2024. Interpretation Summary Normal LV size. Left ventricular systolic function is normal. The left ventricular ejection fraction is 60 %. Previous negative bubble study. Additional Pertinent Findings Additional pertinent findings Holter monitor performed 04/02/25 14:39 The predominant rhythm is sinus. The maximum heart rate recorded was 162 bpm and the lowest was 60 bpm, the average heart rate was 78. There were 4 occurrences of SVT. Pertinent Findings EKG Perinent findings: April 02, 2025. Normal sinus rhythm. Minimal voltage criteria for LVH. Junctional ST depression, probably normal. Compared to EKG of August 2024, CO interval has decreased and T wave inversion no longer evident in the lateral leads. Current Visit Impressions Current Visit Impressions: Hemoglobin A1c on February 19, 2025 was 8.5. Recommendation Anesthesia Recommendation Anesthesia recommendation: OPTIMIZED for anesthesia (Please make sure that surgeons office is aware that patient's A1c is 8.5. This increases the risk of postoperative infection and slows down wound healing. Patient is otherwise optimized for anesthesia.)
== END 2025-03-31 19:00 | disposition home or self-care (01) ==
LOC: SDC 06-25 11:11
PROVIDERS: Anesthesiology; PCP Internal Medicine; Referring Provider Urology; Visit Provider Urology
DX: Z01.818 Encounter for other preprocedural examination (principal)
CPT/HCPCS: 36415; 80048; 80076; 83036; 85027; 85610; 85730; 93005

== ENCOUNTER 2025-04-07 16:09 | Inpatient (IN) | payer MEDICARE, OTHER, SELFPAY ==
[2025-04-07] VITALS (11 sets, daily range): BP systolic 124–174; BP diastolic 57–76; PULSE 66–74; RESP 14–22; TEMP 36.4–37.1; O2SAT 96–99; BMI 26.9; BMI 25.7
--- NOTE | 2025-04-07 16:30 | CT_ITS ---
EXAM: CT BRAIN/HEAD WITHOUT CONTRAST; SPINE CERVICAL WITHOUT CONTRAST CLINICAL HISTORY: HEAD INJURY; INJURY COMPARISON: Brain MRI 08/25/2024. CT head/neck exams 08/25/2024. TECHNIQUE: Noncontrast CT images of the head and cervical spine with multiplanar reconstructions. Dose reduction techniques were used including intermediate exposure control (AEC),iterative reconstruction technique, and/or mA and/or KV dose adjustments based on patient's size. FINDINGS: HEAD: No acute intracranial hemorrhage, extra-axial collection, mass effect or evidence of acute infarct. Mild generalized brain parenchymal volume loss, and moderate-advanced chronic small-vessel ischemic-gliotic changes in the supratentorial white matter, as well as small foci of chronic lacunar infarcts involving the left basal ganglia and left aspect of the han. Atherosclerotic vascular calcifications. Absent [place] ocular lenses. Intact skull base and calvarium. Clear paranasal sinuses and mastoid air cells. CERVICAL SPINE: No acute fracture or subluxation. Alignment is anatomic. Likely positional straightening of the cervical lordosis. Mild spondylotic changes primarily with hypertrophic facet arthropathy more pronounced on the left. No prevertebral soft tissue swelling. Atherosclerotic vascular calcifications. CT/Brain/Head without Contrast IMPRESSION: 1. No acute intracranial abnormality. 2. Moderate-advanced chronic small-vessel ischemic changes. 3. No acute cervical spine fracture or malalignment. Reading Location: [id number]
--- NOTE | 2025-04-07 16:30 | EKG12_ITS ---
Test Reason : SYNCOPE Blood Pressure : */* mmHG Vent. Rate : 71 BPM Atrial Rate : 71 BPM P-R Int : 176 ms QRS Dur : 90 ms QT Int : 424 ms P-R-T Axes : 65 -9 72 degrees QTcB Int : 460 ms Normal sinus rhythm Normal ECG Confirmed by LUISITO CONTI ([id number]), video tape editor PAIGE CARLOS ([id number]) on 04/08/2025 1:53:29 PM Referred By: Confirmed By: LUISITO CONTI
--- NOTE | 2025-04-07 16:30 | CT_ITS ---
EXAM: CT BRAIN/HEAD WITHOUT CONTRAST; SPINE CERVICAL WITHOUT CONTRAST CLINICAL HISTORY: HEAD INJURY; INJURY COMPARISON: Brain MRI 08/25/2024. CT head/neck exams 08/25/2024. TECHNIQUE: Noncontrast CT images of the head and cervical spine with multiplanar reconstructions. Dose reduction techniques were used including intermediate exposure control (AEC),iterative reconstruction technique, and/or mA and/or KV dose adjustments based on patient's size. FINDINGS: HEAD: No acute intracranial hemorrhage, extra-axial collection, mass effect or evidence of acute infarct. Mild generalized brain parenchymal volume loss, and moderate-advanced chronic small-vessel ischemic-gliotic changes in the supratentorial white matter, as well as small foci of chronic lacunar infarcts involving the left basal ganglia and left aspect of the han. Atherosclerotic vascular calcifications. Absent [facility] [facility] [place] ocular lenses. Intact skull base and calvarium. Clear paranasal sinuses and mastoid air cells. CERVICAL SPINE: No acute fracture or subluxation. Alignment is anatomic. Likely positional straightening of the cervical lordosis. Mild spondylotic changes primarily with hypertrophic facet arthropathy more pronounced on the left. No prevertebral soft tissue swelling. Atherosclerotic vascular calcifications. CT/Spine Cervical without Contras IMPRESSION: 1. No acute intracranial abnormality. 2. Moderate-advanced chronic small-vessel ischemic changes. 3. No acute cervical spine fracture or malalignment. Reading Location: [id number]
--- NOTE | 2025-04-07 16:37 | EX.ED.DYSGE1 ---
HPI History of Present Illness Chief Complaint: Syncope Informant: patient and spouse/S.O. Narrative Narrative: Presents by EMS from home, spouse currently present. Unwitnessed fall in the home. Reported patient between living room in the bedroom. She Hammes with a cane and a walker. She is on 2 baby aspirin's. Head injury. Patient reports she has been having a cough occasional productive. No vomiting no diarrhea no urinary symptoms. Facial abrasions noted. Patient brought in a c-collar. [facility] Medical History Diabetes GERD (gastroesophageal reflux disease) Hypertension Overactive bladder Nocturia Stress incontinence Urge incontinence Low iron Stroke/cerebrovascular accident Injury of head and neck Loss of consciousness Difficulty swallowing History of ulceration Cardiology follow-up encounter History of Holter monitoring Presence of insulin pump Osteopenia Proteinuria due to type 2 diabetes mellitus Lumbar radiculopathy, chronic Anxiety and depression Carotid artery stenosis Abnormal urinalysis Facial droop Chronic prescription benzodiazepine use Hypoxia Wears glasses MRSA infection History of Clostridium difficile infection Cancer Insulin dependent diabetes mellitus Walker as ambulation aid Arthritis Bladder disease Easy bruising Injury of back Back pain Unsteady gait Dietary restriction Non-smoker Chronic cough Hoarseness Leg cramps History of edema History of echocardiogram History of stress test Lumbar scoliosis Herniation of intervertebral disc at L3-L4 level Hyperlipidemia Debility Fatigue Mild cognitive impairment Overweight (BMI 25.0-29.9) Migraine without aura, not intractable, without status migrainosus Polyneuropathy Abnormal finding on thyroid function test Acute ischemic stroke 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 Acute gastritis Enlargement of lymph nodes Restless legs GERD (gastroesophageal reflux disease) Essential (primary) hypertension Home Medications ?Medication ?Instructions ?Recorded ?Last Taken ?Type cholecalciferol (vitamin D3) 25 25 mcg PO DAILY 30 days #30 tabs 10/10/24 Unknown Rx mcg (1,000 unit) tablet vit C 250 mg-vit E 90 mg-zinc 40 2 tab PO BID 11/11/24 Unknown History mg-copper 1 [id number] capsule (PreserVision AREDS-2) famotidine 20 mg tablet 40 mg (2 x 20 mg) PO DAILY 30 days 11/27/24 Unknown Rx #60 tabs Lactobacillus acidophilus 1,200 mg PO QDAY 01/01/25 Unknown History (Acidophilus capsule) ascorbic acid (vitamin C) 500 mg 500 mg PO QDAY 01/01/25 Unknown History tablet clonazepam 0.5 mg tablet 0.5 mg PO 2000 30 days #30 tabs 01/01/25 Unknown Rx methenamine hippurate 1 gram tablet 1 g PO BID 01/01/25 Unknown History vibegron 75 mg tablet (Gemtesa) 75 mg PO QDAY 01/01/25 Unknown History Handicap Placard #1 ea 01/06/25 Unknown Rx lisinopril 2.5 mg tablet 2.5 mg PO DAILY 30 days #90 tabs 01/28/25 Unknown Rx aspirin 81 mg chewable tablet 162 mg PO BREAKFAST Heart health 02/04/25 Unknown History clonidine 0.2 mg/24 hr weekly 0.2 mg transdermal We@1000 30 days 02/16/25 Unknown Rx transdermal patch #4 ea duloxetine 60 mg capsule,delayed 60 mg PO QAM #30 caps 02/27/25 Unknown Rx release insulin pump cart,auto,BT,G6/7 #30 ea 02/27/25 Unknown Rx (Omnipod 5 G6-G7 Pods (Gen 5) subcutaneous cartridge) ipratropium bromide 42 mcg (0.06 2 spray NASAL BID 30 days #15 mL 03/02/25 Unknown Rx %) nasal spray metoprolol tartrate 50 mg tablet 50 mg PO TID 30 days #270 tabs 03/02/25 Unknown Rx insulin lispro 100 unit/mL 70 unit (0.7 mL) subcut DAILY #20 03/30/25 Unknown Rx subcutaneous solution (Humalog mL U-100 Insulin) cyanocobalamin (vitamin B-12) 1,000 mcg PO DAILY 03/31/25 Unknown History 1,000 mcg capsule atorvastatin 40 mg tablet 40 mg PO DAILY 30 days #90 tabs 04/06/25 Unknown Rx Allergy/AdvReac Type Severity Reaction Status Date / Time shrimp Allergy Unknown unknown Verified 04/07/25 16:15 adhesive tape Allergy Hives/Rash Verified 04/07/25 16:15 ciprofloxacin (From Cipro) Allergy Photosensitivity Verified 04/07/25 16:15 & dermatitis pioglitazone (From Actos) Allergy Unknown Verified 04/07/25 16:15 codeine AdvReac Upset Verified 04/07/25 16:15 Stomach ibandronate sodium (From AdvReac GI Verified 04/07/25 16:15 Boniva) upset/esophageal burning ibuprofen AdvReac GI upset Verified 04/07/25 16:15 iodine AdvReac Vomiting Verified 04/07/25 16:15 lansoprazole AdvReac Diarrhea Verified 04/07/25 16:15 metformin AdvReac Diarrhea Verified 04/07/25 16:15 miconazole (From Neosporin AdvReac Rash/Bliste Verified 04/07/25 16:15 AF) rs nabumetone (From Relafen) AdvReac GI upset Verified 04/07/25 16:15 pantoprazole (From Protonix) AdvReac Diarrhea Verified 04/07/25 16:15 sucralfate (From Carafate) AdvReac feels Verified 04/07/25 16:15 poorly Family History Father Lung cancer Colon cancer Mother Mesothelioma Hypertension Grandmother Heart disease Other Arthritis Asthma Breast cancer CVA (cerebral vascular accident) Cancer Diabetes Hyperlipidemia Osteoporosis Surgical History Hx of colonoscopy Hx of right cataract extraction Hx of left cataract extraction History of lobectomy of lung History of lung biopsy H/O endoscopy Spinal injections S/P rotator cuff repair Social History adopted: No household members: spouse housing: house number of children: 4 current occupational status: retired current occupation: Worked at the [employer] pets and animals: No sexually active: No Smoking Status: Never smoker second hand exposure: No alcohol intake: never substance use type: does not use diet: diabetic caffeine: No what type of physical activity do you participate in: other details: PT & OT frequency: 1-2 times per week do you feel safe at home: Yes ROS ROS ED Constitutional Constitutional ED: Denies chills, fever(s) or sweats ENT ENT ED: Denies sore throat Cardiovascular Cardiovascular: Denies chest pain, leg edema, palpitations or racing heartbeat Respiratory/Chest Respiratory/Chest: Reports cough; Denies dyspnea or dyspnea on exertion Gastrointestinal Gastrointestinal: Denies abdominal pain, diarrhea, nausea or vomiting Genitourinary Genitourinary ED: Denies dysuria, hematuria or urinary frequency Musculoskeletal Musculoskeletal: Denies back pain, extremity pain or neck pain Integumentary Reports Abrasions and wounds; Denies rash Neurologic Neurologic: Denies headache(s), paresthesias or weakness EXAM Physical Exam Const Vital Signs: 04/07/25 16:10 04/07/25 17:01 04/07/25 17:03 Temperature 98.7 F Temperature Source Oral Pulse Rate 71 Respiratory Rate 22 H Respiratory Effort Normal Non-Labored Normal Non-Labored Respiratory Depth Normal Respiratory Pattern Normal Normal Blood Pressure 156/76 H Blood Pressure Mean 102 Pulse Ox 99 Oxygen Delivery Method Room Air 04/07/25 17:09 04/07/25 18:00 04/07/25 19:00 Temperature Temperature Source Pulse Rate 69 67 68 Respiratory Rate 14 14 16 Respiratory Effort Respiratory Depth Respiratory Pattern Blood Pressure 139/64 H 124/57 H 174/70 H Blood Pressure Mean 89 79 104 Pulse Ox 97 98 98 Oxygen Delivery Method Room Air Room Air Room Air 04/07/25 19:29 04/07/25 19:29 Temperature 98.7 F 97.5 F L Temperature Source Oral Pulse Rate 68 71 Respiratory Rate 16 17 Respiratory Effort Respiratory Depth Respiratory Pattern Blood Pressure 174/70 H 165/62 H Blood Pressure Mean 104 96 Pulse Ox 98 98 Oxygen Delivery Method Room Air Positive well nourished and well developed Constitutional Narrative: Slower to respond however answering questions. Cannot recall the event. General Appearance ED: well developed and NAD HEENT Reports moist mucous membranes HEENT Narrative: Superficial abrasions forehead and facial. Dried blood right lower lip, cleaned up bleeding from the lower lip there is no laceration. No dental loosening. No trismus. normocephalic Eyes General Eye ED: Yes normal appearance of both eyes Neck Neck Narrative: C-collar Chest Wall inspection of chest normal and palpation of chest normal Chest: Negative for tenderness Resp normal respiratory effort and normal air movement Effort and Inspection: symmetric chest movement; Negative for respiratory distress Cardio regular rate, regular rhythm and no murmurs Peripheral Pulses: pulses 2+ throughout GI normal to inspection, nondistended, normoactive bowel sounds and non-tender Palpation: Negative for guarding or rebound tenderness present Extremity normal to inspection General Extremety ED: Negative for edema or tenderness General Extremity: Negative for edema Neuro oriented x3, CN's II-XII intact bilaterally and no sensory deficits noted Neuro Narrative: No focal deficits. Sensorium / Orientation: awake and alert Skin no rashes or lesions noted and no wounds MDM MDM MDM Narrative Medical decision making narrative: Interventions / MDM: Differential diagnosis: Weakness, fall, UTI, facial abrasions Diagnosis considered but do not suspect: Intracranial hemorrhage, fracture however CT negative. Pneumonia however x-ray negative. My EKG interpretation: Sinus rate of 71, no ST or T wave changes. Imaging independently reviewed and interpreted by myself: 1 view chest x-ray: No acute process. CT brain: No acute process. CT cervical spine: No fractures. Also read by radiology. External documents reviewed: N/A Test considered but not ordered:N/A ED course: Patient fall reporting she could not hold onto anything when she fell. She does not recall the incident. Facial injuries on 2 baby aspirin's. No other blood thinners. Trauma scans head and neck obtained. Reports cough therefore chest x-ray. Will check basic labs and urine. Will reevaluate. EKG sinus rhythm. 1800: CT brain/cervical spine negative. C-collar cleared. Labs stable. Urine pending. Chest x-ray negative. 1844: Urine with infection. Normal creatinine normal white count. Culture sent. Reevaluated patient more awake alert. Daughters present. Discussed results with patient and family. Will attempt ambulation. 1909: Per nursing ambulation weakness unsteady gait. This not her baseline. There is not enough help at home. Patient started on IV Rocephin. Will discuss with hospitalist service for admission. Re-evaluation: stable Disposition discussed with patient/family/significant other: Patient and family Case discussed with consulting clinician: Hospitalist This note was generated with [employer] dictation software. It may contain incorrect words, spelling, and punctuation that were not noted in checking the note before signing. Lab Data Attestation: I reviewed the patient's lab results. Labs: Laboratory Results - last 24 hr 04/07/25 04/07/25 16:45 17:52 WBC 8.7 RBC 3.76 L Hgb 11.6 L Hct 33.8 L MCV 89.9 MCH 30.9 MCHC 34.3 RDW Std Deviation 42.3 RDW Coeff of Win 13.0 Plt Count 262 MPV 10.3 Immature Gran % (Auto) 0.100 Neut % (Auto) 71.7 H Lymph % (Auto) 17.0 L [place] % (Auto) 7.1 Eos % (Auto) 3.6 Baso % (Auto) 0.5 Absolute Neuts (auto) 6.3 Absolute Lymphs (auto) 1.48 Nucleated RBC % 0 Sodium 139 Potassium 4.4 Chloride 102 Carbon Dioxide 25.4 Anion Gap 11 BUN 23 H Creatinine 0.76 Estim Creat Clear Calc 48.60 L Est GFR (MDRD) Non-Af 78 BUN/Creatinine Ratio 29.8 H Glucose 278 H Calcium 8.9 Magnesium 1.8 Urine Color Yellow Urine Clarity Cloudy Urine pH 6.0 Ur Specific [place] 1.020 Urine Protein 30 H Urine Glucose (UA) 1000 H Urine Ketones Negative Urine Occult Blood 10 H Urine Nitrite Positive H Urine Bilirubin Negative Urine Urobilinogen Normal Ur Leukocyte Esterase 100 H Urine RBC 0-5 SEEN Urine WBC 25-50 SEEN Ur Squamous Epith Cells 25-50 SEEN Urine Bacteria 1+ Urine Mucus 0 SEEN Urine Yeast 2+ Radiography Diagnostic Testing: Clinical Impression(s) from Imaging Studies Brain CT 04/07/25 16:30 IMPRESSION: 1. No acute intracranial abnormality. 2. Moderate-advanced chronic small-vessel ischemic changes. 3. No acute cervical spine fracture or malalignment. Reading Location: [facility] Cervical Spine CT 04/07/25 16:30 IMPRESSION: 1. No acute intracranial abnormality. 2. Moderate-advanced chronic small-vessel ischemic changes. 3. No acute cervical spine fracture or malalignment. Reading Location: [facility] Chest X-Ray 04/07/25 16:45 IMPRESSION: Chronic interstitial lung disease. No significant change. Reading Location: [id number] Discharge Plan Dx/Rx/DC Orders Clinical Impression: Weakness, Fall, Acute UTI, CHI (closed head injury), Facial abrasion Disposition Disposition: Acute Care Hospital [facility] Discharge Date/Time: 04/07/25 20:39
--- NOTE | 2025-04-07 16:45 | RAD_ITS ---
PROCEDURE: CHEST 1 VIEW (PORTABLE) 04/07/2025 REASON FOR EXAM: COUGH TECHNIQUE: Frontal view of the chest. COMPARISON: PA chest, 12/15/2024. FINDINGS: There is chronic interstitial lung disease. There is no lobar consolidation or pleural effusion. The heart size is normal. There is calcific vascular disease of the thoracic aorta. The upper abdominal bowel gas pattern is normal. There is dextroscoliosis of the thoracolumbar spine. RAD/Chest 1 View (Portable) IMPRESSION: Chronic interstitial lung disease. No significant change. Reading Location: [id number]
[2025-04-07 16:57] LABS: Hematocrit 33.8 % (37-47); Hemoglobin 11.6 g/dL (12.0-15.0); Immature Granulocytes Count 0.010 X10^3/uL (0.0-0.0); Mean Corp Hgb Conc 34.3 g/dL (32-36); Mean Corpuscular Volume 89.9 fL (81-99); Mean Platelet Vol. 10.3 fl (6.2-12.0); NRBC Flagged by Analyzer 0 % (0-5); Platelet Count 262 K/mm3 (150-450); RBC Distribution Width CV 13.0 % (11.6-14.6); RBC Distribution Width SD 42.3 fl (35.1-43.9); Red Blood Count 3.76 M/mm3 (4.2-5.4); White Blood Count 8.7 K/mm3 (4.4-11.0)
[2025-04-07 17:19] LABS: Anion Gap 11 (5-15); BUN 23 mg/dL (4-19); BUN/Creat Ratio 29.8 RATIO (10-20); Calcium,Total 8.9 mg/dL (7.6-11.0); Carbon Dioxide 25.4 mmol/L (21.0-32.0); Chloride 102 mmol/L (98-108); Estimated Creatinine Clearance 48.60 ml/min (50-250); Glucose 278 mg/dL (70-99); Potassium 4.4 mmol/L (3.3-5.1)
[2025-04-07 17:56] LABS: Mucous, Urine 0 SEEN /hpf (<or=2+)
[2025-04-07 18:10] LABS: Color, Urine Yellow (Yellow); Glucose, Dipstick 1000 mg/dl (Normal); Ketone-Dipstick Negative (Negative); Leukocyte Esterase-Dipstick 100 /ul (Negative); Nitrite-Dipstick Positive (Negative); Occult Blood-Urine 10 /ul (Negative); Protein-Dipstick 30 mg/dl (Negative); Specific Gravity, Urine 1.020 (1.002-1.030); Urine Bilirubin Dipstick Negative (Negative)
[2025-04-07 18:27] LABS: Red Blood Cells-Urine 0-5 SEEN /hpf (0-5)
[2025-04-07 18:28] LABS: Squamous Epithelial Cells - UA 25-50 SEEN /hpf (5-10); Yeast-Urine 2+ /hpf (None Seen)
--- NOTE | 2025-04-07 19:18 | PCM.HP.STD ---
[facility] - General General Date of Admission: 04/07/25 Date of Service: 04/07/25 Chief Complaint: Syncopal Event. 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 Jj of urology next week, GERD; with Strickland's esophagus (2009) on famotidine and OA; with history of lumbar radiculopathy using a cane or walker at baseline who presents to [facility] ER complaining of syncopal event. Mrs. Ivory reports her symptoms began just prior to admission when she sustained an unwitnessed fall at home while moving between her living room and bedroom. She admits to a brief LOC with abrasion over Right forehead, nose and small laceration of lower Right lip. She also admits to a cough that has been occasionally productive but she denies fever, chills, dysuria, hematuria, chest pain, palpitations, heart racing or lower extremity edema. In the ER she was noted to have a UA positive for evidence of Acute Cystitis; without hematuria complicated by laboratory evidence of Dehydration; with BUN/creatinine ratio of 29.8 present on admission combining to cause Syncopal Event and she was then admitted to he PCU for ongoing care for a stay that is expected to extend beyond 2 midnights. [facility] Medical History Diabetes GERD (gastroesophageal reflux disease) Hypertension Overactive bladder Nocturia Stress incontinence Urge incontinence Low iron Stroke/cerebrovascular accident Injury of head and neck Loss of consciousness Difficulty swallowing History of ulceration Cardiology follow-up encounter History of Holter monitoring Presence of insulin pump Osteopenia Proteinuria due to type 2 diabetes mellitus Lumbar radiculopathy, chronic Anxiety and depression Carotid artery stenosis Abnormal urinalysis Facial droop Chronic prescription benzodiazepine use Hypoxia Wears glasses MRSA infection History of Clostridium difficile infection Cancer Insulin dependent diabetes mellitus Walker as ambulation aid Arthritis Bladder disease Easy bruising Injury of back Back pain Unsteady gait Dietary restriction Non-smoker Chronic cough Hoarseness Leg cramps History of edema History of echocardiogram History of stress test Lumbar scoliosis Herniation of intervertebral disc at L3-L4 level Hyperlipidemia Debility Fatigue Mild cognitive impairment Overweight (BMI 25.0-29.9) Migraine without aura, not intractable, without status migrainosus Polyneuropathy Abnormal finding on thyroid function test Acute ischemic stroke 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 Acute gastritis Enlargement of lymph nodes Restless legs GERD (gastroesophageal reflux disease) Essential (primary) hypertension Home Medications ?Medication ?Instructions ?Recorded ?Last Taken ?Type cholecalciferol (vitamin D3) 25 25 mcg PO DAILY 30 days #30 tabs 10/10/24 Unknown Rx mcg (1,000 unit) tablet vit C 250 mg-vit E 90 mg-zinc 40 2 tab PO BID 11/11/24 Unknown History mg-copper 1 [id number] capsule (PreserVision AREDS-2) famotidine 20 mg tablet 40 mg (2 x 20 mg) PO DAILY 30 days 11/27/24 Unknown Rx #60 tabs Lactobacillus acidophilus 1,200 mg PO QDAY 01/01/25 Unknown History (Acidophilus capsule) ascorbic acid (vitamin C) 500 mg 500 mg PO QDAY 01/01/25 Unknown History tablet clonazepam 0.5 mg tablet 0.5 mg PO 2000 30 days #30 tabs 01/01/25 Unknown Rx methenamine hippurate 1 gram tablet 1 g PO BID 01/01/25 Unknown History vibegron 75 mg tablet (Gemtesa) 75 mg PO QDAY 01/01/25 Unknown History Handicap Placard #1 ea 01/06/25 Unknown Rx lisinopril 2.5 mg tablet 2.5 mg PO DAILY 30 days #90 tabs 01/28/25 Unknown Rx aspirin 81 mg chewable tablet 162 mg PO BREAKFAST Heart health 02/04/25 Unknown History clonidine 0.2 mg/24 hr weekly 0.2 mg transdermal We@1000 30 days 02/16/25 Unknown Rx transdermal patch #4 ea duloxetine 60 mg capsule,delayed 60 mg PO QAM #30 caps 02/27/25 Unknown Rx release insulin pump cart,auto,BT,G6/7 #30 ea 02/27/25 Unknown Rx (Omnipod 5 G6-G7 Pods (Gen 5) subcutaneous cartridge) ipratropium bromide 42 mcg (0.06 2 spray NASAL BID 30 days #15 mL 03/02/25 Unknown Rx %) nasal spray metoprolol tartrate 50 mg tablet 50 mg PO TID 30 days #270 tabs 03/02/25 Unknown Rx insulin lispro 100 unit/mL 70 unit (0.7 mL) subcut DAILY #20 03/30/25 Unknown Rx subcutaneous solution (Humalog mL U-100 Insulin) cyanocobalamin (vitamin B-12) 1,000 mcg PO DAILY 03/31/25 Unknown History 1,000 mcg capsule atorvastatin 40 mg tablet 40 mg PO DAILY 30 days #90 tabs 04/06/25 Unknown Rx Allergy/AdvReac Type Severity Reaction Status Date / Time shrimp Allergy Unknown unknown Verified 04/07/25 16:15 adhesive tape Allergy Hives/Rash Verified 04/07/25 16:15 ciprofloxacin (From Cipro) Allergy Photosensitivity Verified 04/07/25 16:15 & dermatitis pioglitazone (From Actos) Allergy Unknown Verified 04/07/25 16:15 codeine AdvReac Upset Verified 04/07/25 16:15 Stomach ibandronate sodium (From AdvReac GI Verified 04/07/25 16:15 Boniva) upset/esophageal burning ibuprofen AdvReac GI upset Verified 04/07/25 16:15 iodine AdvReac Vomiting Verified 04/07/25 16:15 lansoprazole AdvReac Diarrhea Verified 04/07/25 16:15 metformin AdvReac Diarrhea Verified 04/07/25 16:15 miconazole (From Neosporin AdvReac Rash/Bliste Verified 04/07/25 16:15 AF) rs nabumetone (From Relafen) AdvReac GI upset Verified 04/07/25 16:15 pantoprazole (From Protonix) AdvReac Diarrhea Verified 04/07/25 16:15 sucralfate (From Carafate) AdvReac feels Verified 04/07/25 16:15 poorly Family History Father Lung cancer Colon cancer Mother Mesothelioma Hypertension Grandmother Heart disease Other Arthritis Asthma Breast cancer CVA (cerebral vascular accident) Cancer Diabetes Hyperlipidemia Osteoporosis Surgical History Hx of colonoscopy Hx of right cataract extraction Hx of left cataract extraction History of lobectomy of lung History of lung biopsy H/O endoscopy Spinal injections S/P rotator cuff repair Social History adopted: No household members: spouse housing: house number of children: 4 current occupational status: retired current occupation: Worked at the [employer] pets and animals: No sexually active: No Smoking Status: Never smoker second hand exposure: No alcohol intake: never substance use type: does not use diet: diabetic caffeine: No what type of physical activity do you participate in: other details: PT & OT frequency: 1-2 times per week do you feel safe at home: Yes ROS ROS Narrative Review of Systems: Constitutional: Patient denies fever or chills. Eyes: Patient denies changes in vision or discharge from eyes. ENT: Patient denies runny nose, sore throat or ear pain. Resp: Patient denies SOB or cough. CV: Patient denies denies chest pain, palpitations, heart racing or LE edema. GI: Patient denies abdominal pain, nausea, vomiting, diarrhea or constipation. : Patient denies dysuria or hematuria. MSK: Patient admits to muscle soreness after her recent fall. Skin: Patient has abrasions over Right forehead and nose. Psych: Patient admits to anxiety due to current move but she denies SI or HI. Neuro: Patient admits to poor balance with need for walker to mobilize. She denies paresthesias or new focal neurologic deficits. Allergy: Patient denies lip swelling, tongue swelling or urticaria. Hematology: Patient denies easy bleeding. Endocrinology: Patient denies polyuria, polydipsia, polyphagia or heat/cold intolerance. 14 point ROS otherwise negative except for positives noted above in HPI. Vital Signs Vital Signs Vital Signs: 04/07/25 16:10 04/07/25 17:01 04/07/25 17:03 Temperature 98.7 F Temperature Source Oral Pulse Rate 71 Respiratory Rate 22 H Respiratory Effort Normal Non-Labored Normal Non-Labored Respiratory Depth Normal Respiratory Pattern Normal Normal Blood Pressure 156/76 H Blood Pressure Mean 102 Pulse Ox 99 Oxygen Delivery Method Room Air 04/07/25 17:09 04/07/25 18:00 04/07/25 19:00 Temperature Temperature Source Pulse Rate 69 67 68 Respiratory Rate 14 14 16 Respiratory Effort Respiratory Depth Respiratory Pattern Blood Pressure 139/64 H 124/57 H 174/70 H Blood Pressure Mean 89 79 104 Pulse Ox 97 98 98 Oxygen Delivery Method Room Air Room Air Room Air Weight Weight: 147 lb 4.8 oz Body Mass Index (BMI) 26.9 Physical Exam Const alert, oriented x3, no apparent distress and average body habitus General Appearance: cooperative HEENT normocephalic, hearing grossly normal bilaterally and moist oral mucous membranes HEENT Narrative: Patient has large abrasion over Right forehead and nose. Eyes PERRL and EOMs intact bilaterally Neck no lymphadenopathy, supple and no JVD Resp normal respiratory effort, no retractions, no use of accessory muscles and clear to auscultation bilaterally Cardio regular rate and regular rhythm GI normal to inspection, nondistended, normoactive bowel sounds, soft to palpation, non-tender and non-distended Extremity normal to inspection Skin Skin Narrative: Patient has abrasions over Right forehead and nose. Neuro oriented x3, CN's II-XII intact bilaterally, moves all extremities and no focal motor deficits Sensorium / Orientation: awake, alert, oriented to person, oriented to place and oriented to time Speech: speech normal Psych affect normal Results Lab / Micro Data 04/07/25 16:45 04/07/25 16:45 Labs: Laboratory Results - last 24 hr 04/07/25 16:45: WBC 8.7, RBC 3.76 L, Hgb 11.6 L, Hct 33.8 L, MCV 89.9, MCH 30.9, MCHC 34.3, RDW Std Deviation 42.3, RDW Coeff of Win 13.0, Plt Count 262, MPV 10.3, Immature Gran % (Auto) 0.100, Neut % (Auto) 71.7 H, Lymph % (Auto) 17.0 L, [place] % (Auto) 7.1, Eos % (Auto) 3.6, Baso % (Auto) 0.5, Absolute Neuts (auto) 6.3, Absolute Lymphs (auto) 1.48, Nucleated RBC % 0, Sodium 139, Potassium 4.4, Chloride 102, Carbon Dioxide 25.4, Anion Gap 11, BUN 23 H, Creatinine 0.76, Estim Creat Clear Calc 48.60 L, Est GFR (MDRD) Non-Af 78, BUN/Creatinine Ratio 29.8 H, Glucose 278 H, Calcium 8.9 04/07/25 17:52: Urine Color Yellow, Urine Clarity Cloudy, Urine pH 6.0, Ur Specific [place] 1.020, Urine Protein 30 H, Urine Glucose (UA) 1000 H, Urine Ketones Negative, Urine Occult Blood 10 H, Urine Nitrite Positive H, Urine Bilirubin Negative, Urine Urobilinogen Normal, Ur Leukocyte Esterase 100 H, Urine RBC 0-5 SEEN, Urine WBC 25-50 SEEN, Ur Squamous Epith Cells 25-50 SEEN, Urine Bacteria 1+, Urine Mucus 0 SEEN, Urine Yeast 2+ Imaging Radiology Impression Brain CT 04/07/25 16:30 IMPRESSION: 1. No acute intracranial abnormality. 2. Moderate-advanced chronic small-vessel ischemic changes. 3. No acute cervical spine fracture or malalignment. Reading Location: [facility] Cervical Spine CT 04/07/25 16:30 IMPRESSION: 1. No acute intracranial abnormality. 2. Moderate-advanced chronic small-vessel ischemic changes. 3. No acute cervical spine fracture or malalignment. Reading Location: [facility] Chest X-Ray 04/07/25 16:45 IMPRESSION: Chronic interstitial lung disease. No significant change. Reading Location: [facility] Assessment & Plan Assessment/Plan (1) Acute cystitis without hematuria: (2) Dehydration: (3) Syncope and collapse: (4) Facial abrasion: QUALIFIERS: Encounter type: initial encounter Qualified Code(s): S00.81XA - Abrasion of other part of head, initial encounter (5) CHI (closed head injury): QUALIFIERS: Encounter type: initial encounter Qualified Code(s): S09.90XA - Unspecified injury of head, initial encounter (6) Weakness: PLAN: Plan 1. UA positive for evidence of Acute Cystitis; without hematuria - Admit to PCU. Continue empiric IV ceftriaxone begun in the ER and await culture and sensitivity data. Give acetaminophen prn pain or fever. Give ondansetron IV prn for nausea and vomiting. 2. Dehydration; with BUN/creatinine ratio of 29.8 present on admission complicating #1 - Gently volume resuscitate and then recheck renal indices in AM to follow trend. 3. Syncopal Event with Facial Abrasion and Closed Head Injury due to a combination of #1 & #2 - Patient had unremarkable echocardiogram with LVEF of ~60% and negative carotid Doppler in August 2024 so these tests will not be repeated at this time. Continue supportive care as outlined above and monitor for improvement with PT/OT and Case Management consult pending in the AM and appreciated in advance. 4. OAB; on vibegron and methenamine hippurate BID with plan for bladder lift' surgery by Dr. Jj of urology next week adding to the medical complexity of #1 - #3 - Noted. Resume vibegron as before. 5. Overweight; with BMI of 26.9 this admission adding to the burden of disease outlined from #1 - #4 - Weight loss will be recommended. Check TSH. 6. History of ischemic CVA of the Right vertebral artery (06/2024); on ECASA with mild cognitive impairment - Stable. 7. Essential hypertension; on lisinopril, metoprolol TID and clonidine 0.2mg TTS patch - Maintain present regimen plus give IV hydralazine prn for systolic blood pressure > 160 mmHg. 8. Hyperlipidemia; on atorvastatin - Continue statin and check Lipid Profile. 9. DM-2; of unknown control; on insulin lispro 70U daily plus diabetic polyneuropathy - ADA/cardiac diet. FSBS q. AC/HS plus lowest intensity SSI. Continue insulin lispro at 40U sq daily in an effort to prevent iatrogenic hypoglycemia. Check HgbA1c to objectively evaluate quality of diabetic control. 10. RLS - Stable. 11. Depression with anxiety; on duloxetine and clonazepam prn daily - Resume present therapy. 12. History of lung cancer ODALIS; s/p lobectomy - Noted. 13. History of migraine headaches - Noted with no complaints related to this issue at this time. 14. Macular degeneration - Noted. 15. GERD; with Strickland's esophagus (2009) on famotidine - Maintain H2-delphine as previous. 16. OA; with history of lumbar radiculopathy using a cane or walker at baseline - Give acetaminophen prn as outlined in #1. Total time: Approximately (but not less than) 75 minutes. Charges/Coding Visit Charges Inpatient E&M: 80326 Init Hosp L3
[2025-04-07] MEDS: 0.9% Normal Saline (1000mL) 1,000 ML 70 ML IV (21:15)
[2025-04-07 21:16] LABS: Magnesium 1.8 mg/dL (1.5-2.2)
--- OUTSIDE RECORDS SUMMARY | 2025-04-07 22:36 | XMS RPT_ITS | CCD ---
Author Organization [facility] CliniSymi Care Team Providers Care Vamp Presser Name Role Phone Alicia Blount MD Primary Care Provider Dr. Alicia Blount Primary Care Provider Dr. Alicia Blount Referring Provider Dr. Reji Bran Attending Provider Dr. Genny Munguia Attending Provider [phone] Cat GAS CONTROLLER, GAS CONTROLLER-C Johana Attending Provider [phone] Emory GAS CONTROLLER, GAS CONTROLLER-C Johana Other Provider Dr. Jamar Chanel Attending Provider Emory GAS CONTROLLER, GAS CONTROLLER-C Johana Referring Provider [phone] Alicia Blount MD Primary Care Provider Dr. Alicia Blount Primary Care Provider Dr. Alicia Blount Referring Provider Emory GAS CONTROLLER, GAS CONTROLLER-C Johana Referring Provider [phone] Dr. Reji Bran Attending Provider [phone] Dr. Anna Espinoza Attending Provider Dr. Alicia Blount Primary Care Provider Dr. Alicia Blount Referring Provider Dr. Genny Munguia Attending Provider [phone] Emory GAS CONTROLLER, GAS CONTROLLER-C Johana Attending Provider [phone] Dr. Hernando Pandya Attending Provider SABINO NELSON Attending Unavailable ALICIA BLOUNT Primary Care Unavailable RADHA BALDERRAMA Referring Unavailable Dr. Alicia Blount Primary Care Provider Dr. Alicia Blount Referring Provider Dr. Genny Munguia Attending Provider Emory GAS CONTROLLER, GAS CONTROLLER-C Johana Attending Provider Dr. Hernando Pandya Attending Provider Dr. Hernando Pandya Referring Provider Dr. Dada Maynard Emergency Provider Dr. Edwin Morgan Admit Provider Dr. Edwin Morgan Other Provider Dr. Rubin Houser Attending Provider Dr. Rubin Houser Other Provider Dr. Nacho Poe Attending Provider Unavailable Dr. Nacho Poe Other Provider Unavailable Dr. Alicia Blount Primary Care Provider Dr. Alicia Blount Referring Provider MD Chaz Soto Attending Provider Dr. Cooper Coates Attending Provider Dr. Genny Munguia Attending Provider Alicia Blount MD Primary Care Provider Ellen Gonzalez RN Unavailable Berry COMMERCIAL ACCOUNT EXECUTIVE.SENIOR PATIENT ACCOUNT REPRESENTATIVE, Clarence Unavailable Idania COMMERCIAL ACCOUNT EXECUTIVE.GREENSKEEPER HEAD, Isabella Unavailable Idania COMMERCIAL ACCOUNT EXECUTIVE.GREENSKEEPER HEAD, Isabella Unavailable Leila BRYANT, Shelby Unavailable Idania COMMERCIAL ACCOUNT EXECUTIVE.GREENSKEEPER HEAD, Isabella Unavailable Idania COMMERCIAL ACCOUNT EXECUTIVE.GREENSKEEPER HEAD, Isabella Unavailable Berry COMMERCIAL ACCOUNT EXECUTIVE.SENIOR PATIENT ACCOUNT REPRESENTATIVE, Clarence Unavailable TALAMPAS, ALICIA D Attending Unavailable TALAMPAS, ALICIA D Primary Care Unavailable TALAMPAS, ALICIA D Attending Unavailable TALAMPAS, ALICIA D Primary Care Unavailable Amaury Lane Attending Unavailable Wayt, Amaury Referring Unavailable Radha, Liliya Primary Care Unavailable Talampas, Alicia D Primary Care Unavailable Andrei, Denzel Chi Attending Unavailable Talampas, Alicia D Primary Care Unavailable Keenan Frances Attending UnavailHernando Santacruz Attending Unavailable Talampas, Alicia D Referring Unavailable Albertson, Liliya Primary Care Unavailable White, Kat L Consulting Unavailable White, Kat L Attending Unavailable White, Kat L Referring Unavailable White, Kat L Admitting Unavailable Talampas, Alicia D Primary Care Unavailable Christian Hollingsworth Attending Unavailable Christian Hollingsworth Consulting Unavailable Michelle Zuleta Attending Unavailable Radha, Liliya Primary Care Unavailable Talampas, Alicia D Primary Care Unavailable Christian Hollingsworth Referring Unavailable TereletsChristian ibanez Attending Unavailable Talampas, Alicia D Referring Unavailable Talampas, Alicia D Primary Care Unavailable Violette Don Attending Unavailable Talampas, Alicia D Primary Care Unavailable EzraGenny Attending Unavailable Talampas, Alicia D Referring Unavailable Talampas, Alicia D Primary Care Unavailable Genny Munguia Attending Unavailable Ezra, Genny Referring Unavailable Talampas, Alicia D Primary Care Unavailable Nikky Pastor Attending Unavaila ble Sementi, Nikky Chopra Referring Unavaila ble Talampas, Alicia D Primary Care Unavailable Dada Do Referring Unavailable Dada Do Attending Unavailable Talampas, Alicia D Primary Care Unavailable Nikky Pastor Attending Unavaila ble Sementi, Nikky Chopra Referring Unavaila ble WayAmaury peters Referring Unavailable WaytAmaury Attending Unavailable Albertson, Liliya Primary Care Unavailable Talampas, Alicia D Primary Care Unavailable Albertson, Liliya Attending Unavailable Albertson, Liliya Referring Unavailable Yehuda Magana Consulting Unavailable Radha, Liliya Primary Care Unavailable Violette Don Attending Unavailable Violette Don Referring Unavailable Talampas, Alicia D Primary Care Unavailable Frank Grace Attending Unavailable Frank Grace Consulting Unavailable Andrei, Denzel Chi Referring Unavailable Andrei, Denzel Chi Admitting Unavailable Andrei, Denzel Chi Consulting Unavailable Talampas, Alicia D Primary Care Unavailable Sementi, Nikky Chopra Consulting Unavaila ble Sementi, Nikky Chopra Attending Unavaila ble Sementi, Smitha Admitting Unavaila ble Talampas, Alicia D Referring Unavailable Albertson, Liliya Primary Care Unavailable Genny Munguia Attending Unavailable White, Kat L Consulting Unavailable White, Kat L Referring Unavailable Talampas, Alicia D Primary Care Unavailable White, Kat L Admitting Unavailable Christian Hollingsworth Attending Unavailable Talampas, Alicia D Primary Care Unavailable Jordon Jimenez Admitting Unavailable Jordon Jimenez Consulting Unavailable Rubin Houser Attending Unavailable Hernando Pandya Attending Unavailable Albertson, Liliya Referring Unavailable Radha, Liliya Primary Care Unavailable Radha, Liliya Referring Unavailable Radha, Liliya Primary Care Unavailable Violette Don Attending Unavailable Talampas, Alicia D Primary Care Unavailable Sementai, Nikky Chopra Consulting Unavaila ble Sementi, Nikky Chopra Attending Unavaila ble Sementi, Smitha Admitting Unavaila ble Genny Munguia Attending Unavailable Talampas, Alicia D Primary Care Unavailable Daya Adhikari Admitting Unavailable David Vila Consulting Unavailable Christian Hollingsworth Attending Unavailable Adeli, Amir Consulting Unavailable Hinduja, Sarah Consulting Unavailable Ez, Katia Consulting Unavailable Zha, Nissa Consulting Unavailable Ina, Lul Consulting Unavailable Jeny, Edilma Consulting Unavailable Brea, Ilya Consulting Unavailable Jordyn Torres Consulting Unavailable Germán Zurita Consulting Unavailable Mallory Brown Consulting Unavailable Amaury Youngblood Consulting Unavailable Eulalia Rangel Consulting Unavailable Ridha, Mohamed Consulting Unavailable Zasulema, Mhd Richar Consulting UnavailAmador Pitts Consulting Unavailable Colon, Rami Consulting Unavailable Abdullahi Worley Consulting Unavailable Leonie Adhikari Consulting Unavailable Marcia Ugalde Consulting Unavailable Daya Adhikari Consulting Unavailable Christian Hollingsworth Consulting Unavailable Talampas, Alicia D Referring Unavailable Albertson, Liliya Attending Unavailable Radha, Liliya Primary Care Unavailable Hernando Pandya Referring Unavailable Radha, Liliya Primary Care Unavailable Baddour, Hernando Attending Unavailable Talampas, Alicia D Primary Care Unavailable EzraGenny Attending Unavailable Talampas, Alicia D Referring Unavailable Talampas, Alicia D Referring Unavailable Talampas, Alicia D Primary Care Unavailable Baddour, Hernando Attending Unavailable Talampas, Alicia D Primary Care Unavailable Baddour, Hernando Referring Unavailable Baddour, Hernando Attending Unavailable Talampas, Alicia D Referring Unavailable Talampas, Alicia D Primary Care Unavailable EzraGenny Attending Unavailable Talampas, Alicia D Referring Unavailable Talampas, Alicia D Primary Care Unavailable Lucius Silva NP Attending Unavailable Talampas, Alicia D Primary Care Unavailable Ezra, Genny Attending Unavailable Talampas, Alicia D Referring Unavailable Talampas, Alicia D Primary Care Unavailable Baddour, Hernando Referring Unavailable Baddour, Hernando Attending Unavailable Talampas, Alicia D Primary Care Unavailable Baddour, Hernando Referring Unavailable Baddour, Hernando Attending Unavailable Talampas, Alicia D Primary Care Unavailable Talampas, Alicia D Referring Unavailable Radha, Liliya Attending Unavailable Talampas, Alicia D Primary Care Unavailable Cammydour, Hernando Attending Unavailable Cammydour, Hernando Referring Unavailable Amaury Lane Attending Unavailable Radha, Liliya Primary Care Unavailable Albertson, Liliya Referring Unavailable Radha, Liliya Primary Care Unavailable Cammydour, Hernando Attending Unavailable Baddour, Hernando Referring Unavailable Talampas, Alicia D Primary Care Unavailable Cooper Coates Attending Unavailable Miguel AngelkyChristian Referring Unavailable Talampas, Alicia D Primary Care Unavailable Nikky Pastor Attending Unavaila ble Nikky Pastor Admitting Unavaila Daya Eckert Admitting Unavailable David Vila Consulting Unavailable Talampas, Alicia D Primary Care Unavailable Christian Hollingsworth Attending Unavailable Adehellen, Amir Consulting Unavailable Hinduja, Saarh Consulting Unavailable Ez Katia Consulting Unavailable Nelson, Nissa Consulting Unavailable InaJuno timak Consulting Unavailable Edilma Fermin Consulting Unavailable Ilya Guidry Consulting Unavailable Jordyn Torres Consulting Unavailable Germán Zurita Consulting Unavailable Mallory Brown Consulting Unavailable Amaury Youngblood Consulting Unavailable Eulalia Rangel Consulting Unavailable Lina Mcdonald Consulting Unavailable Zaghlouleh, Mhd Richar Consulting UnavailAmador Pitts Consulting Unavailable Colon, Rami Consulting Unavailable Meir, Abdullahi Consulting Unavailable Onofre, Leonie Consulting Unavailable Hannageorgiana, Yousef Consulting Unavailable Daya Adhikari Consulting Unavailable Talampas, Alicia D Primary Care Unavailable Nikky Pastor Admitting Unavaila Nikky Martinez Attending Unavaila Hernando Betancourt Attending Unavailable Hernando Pandya Referring Unavailable Albertson, Liliya Primary Care Unavailable Talampas, Alicia D Primary Care Unavailable Cooper Coates Attending Unavailable Talampas, Alicia D Primary Care Unavailable Sonido Walters Attending Unavailable Talampas, Alicia D Primary Care Unavailable Mk Adhikari Attending Unavailable Daya Adhikari Referring Unavailable Talampas, Alicia D Primary Care Unavailable Frank Grace Consulting Unavailable Denzel Forbes Chi Attending Unavailable Denzel Forbes Chi Admitting Unavailable David Vila Consulting Unavailable Talampas, Alicia D Primary Care Unavailable Daya Adhikari Admitting Unavailable Daya Adhikari Attending Unavailable Adeli, Amir Consulting Unavailable Hinduja, Sarah Consulting Unavailable Ez, Katia Consulting Unavailable Zha, Nissa Consulting Unavailable Ina, Lul Consulting Unavailable Jeny, Edilma Consulting Unavailable Ilya Guidry Consulting Unavailable Jordyn Torres Consulting Unavailable Germán Zurita Consulting Unavailable Mallory Brown Consulting Unavailable Amaury Youngblood Consulting Unavailable Eulalia Rangel Consulting Unavailable Lina Mcdonald Consulting Unavailable Zatoñitoh, Mhd Richar Consulting UnavailAmador Pitts Consulting Unavailable Colon, Rami Consulting Unavailable Meir, Abdullahi Consulting Unavailable Onofre, Leonie Consulting Unavailable Robbienageorgiana, Yousef Consulting Unavailable Onofre, Daya Consulting Unavailable Abhinav Monsivais Attending Unavailable Christian Hollingsworth Referring Unavailable Talampas, Alicia D Primary Care Unavailable Jordon Jimenez Consulting Unavailable Jordon Jimenez Attending Unavailable Jordon Jimenez Admitting Unavailable Rubin Houser Attending Unavailable Rubin Houser Consulting Unavailable Aniket Guo Referring Unavailable Radha, Liliya Primary Care Unavailable Aniket Guo Attending Unavailable Allergies Allergy Classification Reported Allergen(s) Allergy Type Date of Onset Reaction(s) Facility Adhesive Tape (1 source) Adhesive Tape Substance Allergy 08-31-19 [address] [facility] Work Phone: Aspirin (1 source) Aspirin Drug Allergy 04-16-20 18 Contraindicati on-Medical Surgical [facility] Azole Antifungals (1 source) Miconazole Drug Allergy 12-30-19 21 Other: See Comments [facility] bacitracin / neomycin / polymyxin b (1 source) bacitracin / neomycin / polymyxin b Drug Allergy 08-31-[address] [facility] Ibandronate (1 source) Ibandronate Drug Allergy 12-05-19 09 [address]ps[address] [facility] Iodine (and Iodine containting drugs) (1 source) Iodine Drug Allergy 08-25-[address] [facility] metFORMIN (1 source) metFORMIN Drug Allergy 05-10-20 [address] [facility] Work Phone: NITROFURANTOIN, MACROCRYSTALS / Nitrofurantoin, Monohydrate (1 source) NITROFURANTOIN, MACROCRYSTALS / Nitrofurantoin, Monohydrate Drug Allergy 11-23-19 22 GI Upset, Anaphylaxis [facility] Work Phone: NSAIDs (2 sources) Ibuprofen Drug Allergy 03-22-20 06 GI Upset, Vomiting [facility] Opioid Agonists (1 source) Codeine Drug Allergy 08-24-19 06 GI Upset [facility] Work Phone: Proton Pump Inhibitors (2 sources) lansoprazole Drug Allergy 01-14-20 [address] [facility] Quinolones (antibiotic) (1 source) Ciprofloxacin Drug Allergy 12-02-19 14 Other: See Comments [facility] shrimp allergenic extract (1 source) shrimp allergenic extract Drug Allergy 12-22-19 22 GI [address]ps[address] [facility] Sucralfate (1 source) Sucralfate Drug Allergy 04-24-20 12 Other: See Comments [facility] Thiazolidinediones (glitazones) (2 sources) pioglitazone Drug Allergy 12-04-19 17 Swelling, Unknown [facility] Work Phone: (20 sources) Adhesive Tape; 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: [ADHESIVE TAPE (ROSINS)] Propensity to adverse reactions to substance 08-31-19 [address] [facility] Work Phone: (20 sources) Aspirin; 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: [ASPIRIN] Drug Allergy 04-16-20 18 Contraindicati on-Medical Surgical [facility] (20 sources) bacitracin / neomycin / polymyxin b; 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: [NEOMYCIN-BACITRA STARLA-POLYMYXIN] Drug Allergy 08-31-[address] [facility] (20 sources) Ciprofloxacin; 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: [CIPROFLOXACIN] Drug Allergy 12-02-19 14 Other: See Comments [facility] (20 sources) Codeine; 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: [CODEINE] Drug Allergy 08-24-19 06 GI Upset [facility] Work Phone: (20 sources) Ibandronate; 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: [IBANDRONATE] Drug Allergy 12-05-19 09 GI Upset [facility] (20 sources) Ibuprofen; 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: [IBUPROFEN] Drug Allergy 03-22-20 06 GI Upset [facility] (20 sources) Iodine; 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: [IODINE] Drug Allergy 08-25-19 [address] [facility] (20 sources) lansoprazole; 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: [LANSOPRAZOLE] Drug Allergy 11-01-19 [address] [facility] (20 sources) metFORMIN; 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: [METFORMIN] Drug Allergy 05-10-20 [address] [facility] Work Phone: (20 sources) nabumetone; 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: [NABUMETONE] Drug Allergy 03-22-20 06 GI Upset, Vomiting [facility] Work Phone: (20 sources) NITROFURANTOIN, MACROCRYSTALS / Nitrofurantoin, Monohydrate; 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: [NITROFURANTOIN MONOHYD/M-CRYST] Drug Allergy 11-23-19 22 GI Upset, Anaphylaxis [facility] Work Phone: (20 sources) pantoprazole; 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: [PANTOPRAZOLE] Drug Allergy 01-14-20 [address] [facility] (20 sources) pioglitazone; 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: [PIOGLITAZONE HCL] Drug Allergy 12-04-19 [address] [facility] Work Phone: (20 sources) Sucralfate; 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: [SUCRALFATE] Drug Allergy 04-24-20 12 Other: See Comments [facility] (20 sources) shrimp allergenic extract; 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: [SHRIMP] Drug Allergy 12-22-[address] [facility] (8 sources) Adhesive Tape; 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: [adhesive tape] Allergy to substance 07-26-20 Hives/Rash [facility] (20 sources) Miconazole; 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: [MICONAZOLE] Drug Allergy 12-30-19 Other: See Comments [facility] (20 sources) pioglitazone; 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: [PIOGLITAZONE] Drug Allergy 12-30-19 Unknown [facility] (8 sources) Triiodobenzoic Acids; 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: [IODINATED CONTRAST MEDIA] Propensity to adverse reactions 07-26-20 Vomiting [facility] (20 sources) Iodinated Contrast Media Drug Allergy 06-10-[address] [facility] Work Phone: (1 source) Ciprofloxacin Drug Allergy 04-01-20 [facility] Repository (1 source) Codeine Drug Allergy 04-01-20 [facility] Rep[facility] (1 source) Ibadronate Drug Allergy 04-01-20 [facility] (1 source) Ibuprofen Drug Allergy 04-01-20 [facility] (1 source) Iodine Drug Allergy 04-01-20 [facility] (1 source) lansoprazole Drug Allergy 04-01-20 [facility] (1 source) metFORMIN Drug Allergy 04-01-20 [facility] (1 source) Miconazole Drug Allergy 04-01-20 [facility] (1 source) nabumetone Drug Allergy 04-01-20 [facility] (1 source) pantoprazole Drug Allergy 04-01-20 [facility] (1 source) pioglitazone Drug Allergy 04-01-20 [facility] (1 source) Shrimp product Drug allergy (disorder) 04-01-20 [facility] Rep[facility] (1 source) Sucralfate Drug Allergy 04-01-20 [facility] (1 source) Iodinated Contrast Media Drug allergy (disorder) 07-10-20 [facility] Rep[facility] Medications Current Medications Medication Drug Class(es) Dates Sig (Normalized) Sig (Original) acetaminophen 500 mg oral tablet (1 source) Start: 06-20-2023 take 1000 mg by mouth every six hours as needed Acetaminophen Active 1000 MG PO EVERY 6 HOURS NEEDED 0 June 20, 2023 12:00am [id number] 200 actuat albuterol 0.09 mg/actuat metered dose inhaler (20 sources) beta2-Adrenergic Agonist Start: 07-15-2024 VENTOLIN HFA 90 mcg/actuation inhaler Indications: Diabetes 1.5, managed as type 1 (HCC) , Bronchiectasis without complication (HCC) Inhale 2 Puffs as instructed every 4 hours as needed for wheezing/shortness of breath. 1 Each 5 07/15/2024 Active Start: 11-08-2021 End: 07-15-2024 take 2 puff(s) by mouth every six hours as needed for wheezing VENTOLIN HFA 90 mcg/actuation inhaler INHALE 2 PUFFS BY MOUTH EVERY 6 HOURS NEEDED FOR SHORTNESS OF BREATH/WHEEZING 11/08/2021 07/15/2024 Discontinued Start: 12-23-2020 End: 03-07-2023 take 1 puff(s) by inhalation every six hours Albuterol Sulfate Discontinued 2 PUFF INHALATION EVERY 6 HOURS 6.7 March 15, 2022 9:00am March 07, 2023 12:18pm Start: 08-28-2018 End: 11-04-2019 take 1 puff(s) by inhalation every six hours Albuterol Sulfate Discontinued 2 PUFF INHALATION EVERY 6 HOURS August 28, 2018 12:00am November 04, 2019 12:38pm Comment on above: INHALE 2 PUFFS BY MO UTH EVERY 6 HOURS NEEDED FOR SHORTNESS OF BREATH/WHEEZING amoxicillin 875 mg / clavulanate 125 mg oral tablet (20 sources) Penicillin-class Antibacterial Start: 4 take 1 tablet by mouth twice daily amoxicillin-clavu lanate potassium (AUGMENTIN) 875-125 mg per tablet Take 1 tablet by mouth two times a day. 07/12/2024 Active aspirin 81 mg chewable tablet (20 sources) Platelet Aggregation Inhibitor, Nonsteroidal Anti-inflammatory Drug Start: 0 take 81 mg by mouth once daily Aspirin Active 81 MG PO DAILY@0800 30 January 02, 2020 11:00pm aspirin 81 mg ca p Take by mouth. Active Comment on above: Take by mouth. biotin 2.5 mg oral capsule (20 sources) Start: 06-16-202 0 Biotin 2,500 mcg cap Nurse reports patient taking 1500 mcg dose once daily (cannot find 1500mcg dose on menu) 01/27/2020 Active Comment on above: Nurse reports patien t taking 1500 mcg dose once daily (cannot find 1500mcg dose on menu) cholecalciferol 0.025 mg oral capsule (20 sources) Vitamin D Start: 9 take 2 capsules by mouth once daily Cholecalciferol, Vitamin D3, 1,000 unit cap Take 2 capsules by mouth once daily. 0 04/25/2019 Active Start: 03-13-2017 take 1000 [IU] by mo [facility] once daily Cholecalciferol (Vitamin D3) Active 1000 UNIT PO DAILY March 12, 2017 11:00pm Comment on above: Take 2 capsules by m [facility] once daily. collagen, bovine, 100 % powd (20 sources) collagen, bovine , 100 % powd Apply to affected area. Active collagen, bovine , 100 % powd Apply to affected area. 0 Active Comment on above: Apply to affected ar ea. 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, with long-term current use of insulin Cranberry-Vitamin C-Vitamin E (CRANBERRY PLUS VITAMIN C) 140-100 mg cap (20 sources) Start: 01-27-2020 Cranberry-Vitamin C-Vitamin E (CRANBERRY PLUS VITAMIN C) 140-100 mg cap Patient takes Cranberry with Vitamin C capsule that contains 15,000 mg Cranberry and 100mg Vitamin C 01/27/2020 Active Start: 01-27-2020 Cranberry-Shamika min C-Vitamin E (CRANBERRY PLUS VITAMIN C) 140- 100 mg cap Patient takes Cranberry with Vitamin C capsule that contains 15,000 mg Cranberry and 100mg Vitamin C 0 01/27/2020 Active Comment on above: Patient takes Cranbe rry with Vitamin C capsule that contains 15,000 mg Cranberry and 100mg Vitamin C docusate sodium 50 mg / sennosides, chcf 8.6 mg oral tablet (1 source) Start: take 1 tablet by mouth twice daily Sennosides-Docusate Sodium (Stool Softener-Stimulant Laxat) 8.6-50 mg Tablet Active 1 TABLET PO TWICE A DAY 60 June 20, 2023 12:00am doxycycline hyclate 100 mg oral tablet (2 sources) Tetracycline-class Drug Start: End: take 1 tablet by mouth twice daily doxycycline (VIBRA-TABS) 100 mg tablet Indications: Sinobronchitis Take 1 tablet by mouth two times a day for 7 days. 14 tablet 0 02/12/2024 02/19/2024 Active DULoxetine 60 mg delayed release oral capsule (20 sources) Serotonin and Norepinephrine Reuptake Inhibitor Start: End: take 1 capsule by mouth once daily at breakfast DULoxetine (CYMBALTA) 30 mg capsule Take 1 capsule by mouth once daily. Take with breakfast 90 capsule 1 07/02/2023 05/27/2024 Discontinued Start: 02-06-2023 End: 07-02-2023 take 1 capsule by mouth once daily at bedtime DULoxetine (CYMBALTA) 60 mg capsule Take 1 capsule by mouth daily at bedtime. 90 capsule 1 07/02/2023 Active Start: 02-06-2023 End: 03-05-2023 take 30 mg by mouth at bedtime Duloxetine Discontinued 30 MG PO AT BEDTIME February 05, 2023 11:00pm March 05, 2023 9:16am Comment on above: Take 1 capsule by mo [facility] once daily. Take with breakfast Take 1 capsule by mo [facility] daily at bedtime. Take 60 mg by mouth once daily. 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 90 capsule 3 10/01/2023 Active Comment on above: Take 1 capsule by mo [facility] DAILY (6 AM). Take 1 capsule by mo [facility] daily at 6 am. 24 hr fesoterodine fumarate 8 mg extended release oral tablet (20 sources) Start: 10-10-19 take 1 tablet by mouth once daily Fesoterodine (Toviaz) 4 mg tablet extended release 24 hr Active 8 MG PO DAILY October 10, 2021 12:00am Start: 11-08-2020 take 1 tablet by joe th once daily TOVIAZ 4 mg Tb24 extended release tablet Take 4 mg by mouth once daily. For 30 days 11/08/2020 Active Comment on above: Take 4 mg by mouth o nce daily. For 30 days flash glucose scanning reader (FREESTYLE DONTRELL 2 READER) (20 sources) flash glucose sc anning reader (FREESTYLE DONTRELL 2 READER) Active flash glucose sc anning reader (FREESTYLE DONTRELL 2 READER) flash glucose sensor (FREEST YLE DONTRELL 14 DAY SENSOR) kit (20 sources) flash glucose se nsor (FREESTYLE DONTRELL 14 DAY SENSOR) kit Active flash glucose se nsor (FREESTYLE DONTRELL 14 DAY SENSOR) kit furosemide 20 mg oral tablet (20 sources) Loop Diuretic Start: 11-22-2021 End: 03-05-2023 take 1 tablet by mouth once daily furosemide (LASIX) 20 mg tablet Take 1 tablet by mouth once daily. As directed for leg swelling 30 tablet 1 03/31/2022 Active Comment on above: Take 1 tablet by joe once daily. As directed for leg swelling gabapentin 300 mg oral capsule (20 sources) Anti-epileptic Agent Start: 08-27-2023 End: 09-14-2024 take 1 capsule by mouth twice daily at bedtime gabapentin (NEURONTIN) 300 mg capsule Indications: 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, with long-term current use of insulin (HCC) Take 1 capsule by mouth two times a day for 180 days. Morning and bedtime 180 capsule 1 03/18/2024 Active Start: 06-12-2023 End: 06-20-2023 take 100 mg by mouth twice daily Gabapentin Discontinued 100 MG PO TWICE A DAY 60 June 11, 2023 11:00pm June 20, 2023 9:22pm Start: 06-27-2022 End: 07-28-2023 take 1 capsule by mouth twice daily at bedtime gabapentin (NEURONTIN) 300 mg capsule Indications: 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 Morning and bedtime 180 capsule 1 06/27/2022 01/29/2023 Discontinued Start: 03-13-2017 End: 12-29-2020 take 300 mg by mouth at bedtime Gabapentin Discontinue d 300 MG PO AT BEDTIME May 27, 2020 12:36pm December 29, 2020 9:07am Comment on above: Take 1 capsule by mo [facility] twice daily for 180 days. Morning and bedtime Take 1 capsule by mo [facility] two times a day for 180 days. Morning and bedtime 12 hr guaiFENesin 600 mg extended release oral tablet (16 sources) Start: 05-16-2022 End: 05-26-2022 take 1 tablet by mouth twice daily guaiFENesin (MUCINEX) 600 mg 12 hr tablet Indications: Suspected COVID-19 virus infection Take 1 tablet by mouth twice daily for 10 days. 20 tablet 0 05/16/2022 05/26/2022 Active Start: 02-21-2021 End: 10-05-2022 take 1200 mg by mouth every twelve hours Guaifenesin Discontinued 1200 MG PO Q12H 60 February 20, 2021 11:00pm October 05, 2022 12:01pm Start: 03-13-2017 End: 08-28-2018 take 1 mL by mouth three times daily as needed Guaifenesin Discontinued 10 ML PO 3 TIMES DAILY NEEDED March 12, 2017 11:00pm August 28, 2018 8:09am Comment on above: Take 1 tablet by [facility] twice daily for 10 days. 3 ml insulin aspart, human 100 unt/ml pen injector (20 sources) Insulin Analog Start: inject 28 [IU] by subcutaneous injection once daily at breakfast, then inject 28 [IU] by subcutaneous injection once daily at lunch, then inject 28 [IU] by subcutaneous injection once daily at dinner insulin aspart U-100 (NOVOLOG FLEXPEN U-100 INSULIN) 100 unit/mL (3 mL) Inject 28 Units subcutaneously daily with breakfast AND 28 Units daily with lunch AND 28 Units daily with dinner. Adjust as directed. (Dr. Genny Munguia refills) Also has SSI. 10/01/2023 Active Start: 06-10-2023 End: 06-11-2023 Insulin Aspart U-100 (Novolo g Flexpen U-100 Insulin) 100 unit/mL (3 mL) insulin pen Discontinued 25 UNIT SC WITH LUNCH June 09, 2023 11:00pm June 10, 2023 11:00pm Start: 06-10-2023 End: 06-20-2023 Insulin Aspart U-100 (Novolo g Flexpen U-100 Insulin) 100 unit/mL (3 mL) insulin pen Discontinued 20 UNIT SC THREE TIMES A DAY June 09, 2023 11:00pm June 20, 2023 9:23pm Start: 06-10-2023 Insulin Aspart U-100 (Novolog Flexpen U-100 Insulin) 100 unit/mL (3 mL) insulin pen Active 20 UNIT SC WITH DINNER June 10, 2023 12:00am Start: 03-05-2023 End: 06-20-2023 Insulin Aspart U-100 (Novolo g Flexpen U-100 Insulin) 100 unit/mL (3 mL) insulin pen Discontinued 34 UNIT SC WITH BREAKFAST March 05, 2023 9:17am June 20, 2023 9:23pm Start: 09-30-2022 End: 10-01-2023 inject 25 [IU] by subcutaneous injection once daily at breakfast, then inject 25 [IU] by subcutaneous injection once daily at lunch, then inject 25 [IU] by subcutaneous injection once daily at dinner insulin aspart U-100 (NOVOLOG FLEXPEN U-100 INSULIN) 100 unit/mL (3 mL) Inject 25 Units subcutaneously daily with breakfast AND 25 Units daily with lunch AND 25 Units daily with dinner. Adjust as directed. (Dr. Genny Munguia refills) Also has SSI. 09/30/2022 10/01/2023 Discontinued Start: 05-26-2021 End: 03-05-2023 Insulin Aspart U-100 (Novolo g Flexpen U-100 Insulin) 100 unit/mL (3 mL) insulin pen Discontinued 20 UNIT SC THREE TIMES A DAY 54 July 26, 2022 12:22pm March 05, 2023 9:18am Start: 01-28-2021 End: 09-30-2022 inject 12 [IU] by subcutaneous injection once daily at breakfast, then inject 10 [IU] by subcutaneous injection once daily at lunch, then inject 12 [IU] by subcutaneous injection once daily at dinner insulin aspart U-100 (NOVOLOG FLEXPEN U-100 INSULIN) 100 unit/mL (3 mL) Inject 12 Units subcutaneously daily with breakfast AND 10 Units daily with lunch AND 12 Units daily with dinner. Adjust as directed. (Dr. Genny funes). 01/28/2021 09/30/2022 Discontinued Start: 05-17-2020 End: 05-26-2021 Insulin Aspart U-100 (Novolo g Flexpen U-100 Insulin) 100 unit/mL (3 mL) insulin pen Discontinued 10 UNIT SC THREE TIMES A DAY May 23, 2021 8:11am May 26, 2021 7:15am Start: 04-11-2019 End: 05-17-2020 Insulin Aspart U-100 Discont inued 8 UNITS SC DAILY April 10, 2019 11:00pm May 17, 2020 11:05am Start: 03-13-2017 End: 08-28-2018 inject 5 [IU] by subcutaneous injection at dinner Insulin Aspart U-100 Discontinued 5 UNIT SQ WITH DINNER March 12, 2017 11:00pm August 28, 2018 8:09am Comment on above: Inject 12 Units subc utaneously daily with breakfast AND 10 Units daily with lunch AND 12 Units daily with dinner. Adjust as directed. (Dr. Genny funes). Inject 25 Units subc utaneously daily with breakfast AND 25 Units daily with lunch AND 25 Units daily with dinner. Adjust as directed. (Dr. Genny funes) Also has SSI. Inject 28 Units subc utaneously daily with breakfast AND 28 Units daily with lunch AND 28 Units daily with dinner. Adjust as directed. (Dr. Genny funes) Also has SSI. 3 ml insulin lispro 100 unt/ml pen injector (1 source) Insulin Analog Start: 06-20-20 23 Insulin Lispro (Humalog Kwikpen Insulin) 100 unit/mL Insulin Pen Active 20 UNIT SC THREE TIMES DAILY BEFORE MEALS June 20, 2023 12:00am insulin lispro 25 unt/ml / insulin lispro protamine, human 75 unt/ml injectable suspension (17 sources) Insulin Analog Start: 10-22-19 25 insulin 75/25 lispro protamine-lispro units/mL (HUMALOG MIX 75-25,U-100,INSULN ) 100 units/mL suspension 10 units TID and a sliding scale s-- he will get 1 units for every 50 points she is over 200. 10/21/2024 Active lactobacillus acidophilus [id number] unt oral capsule (20 sources) Start: 11-23-19 End: 03-18-20 take 1 capsule by mouth once daily Acidophilus-Bif Animalis 10 billion cell cap Take 1 capsule by mouth once daily. 90 capsule 3 03/18/2024 Active Comment on above: Take 1 capsule by [facility] once daily. LORazepam 1 mg oral tablet (20 sources) Benzodiazepine Start: 06-05-20 End: 09-03-19 LORazepam (ATIVAN) 1 mg tablet Indications: Anxiety Take 0.5-1 tablets by mouth once daily as needed for up to 90 days. Patient should start on June 05, 2024. 30 tablet 2 06/05/2024 Active Start: 08-28-2018 End: 05-27-2024 take 0.5-1 tablets by mouth once daily as needed LORazepam (ATIVAN) 1 mg tablet Indications: Anxiety Take 0.5-1 tablets by mouth once daily as needed for up to 90 days. 30 tablet 2 01/15/2024 05/27/2024 Discontinued Start: 03-13-2017 End: 08-28-2018 take 0.5 mg by mouth once daily as needed Lorazepam Discontinued 0.5 MG PO DAILY NEEDED March 12, 2017 11:00pm August 28, 2018 8:08am Comment on above: TAKE 1/2 TO 1 TABLET BY MOUTH EVERY DAY NEEDED FOR FOR ANXIETY TAKE 1/2 TO 1 TABLET BY MOUTH EVERY DAY NEEDED FOR FOR ANXIETY Do not start before February 03, 2023. Take 0.5-1 tablets b y mouth once daily as needed for up to 90 days. melatonin 10 mg extended release oral tablet (7 sources) Start: 01-02-2020 Melatonin Active 10 MG PO NEEDED January 01, 2020 11:00pm Start: 01-02-2020 End: 06-10-2023 Melatonin Discontinued 10 MG PO NEEDED January 01, 2020 11:00pm June 10, 2023 5:27pm 24 hr metoprolol succinate 200 mg extended release oral tablet (20 sources) beta-Adrenergic Chetan Start: 03-13-2017 End: 05-27-2024 take 1 tablet by mouth once daily metoprolol succinate ER (TOPROL XL) 200 mg 24 hr tablet Indications: Essential hypertension Take 1 tablet by mouth once daily. 90 tablet 3 05/27/2024 Active Comment on above: Take 1 tablet by joe th once daily. Miscellaneous Medical Supply misc (20 sources) Start: 08-08-2019 Miscellaneous Medical Supply misc Indications: 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, with long-term current use of insulin (HCC) [employer] (E08.40, Z79.4) 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, with long-term current use of insulin 2 Each 08/08/2019 Active Start: 08-08-2019 Miscellaneous Medical Supply misc Indications: 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, with long-term current use of insulin (HCC) [employer] (E08.40, Z79.4) 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, with long-term current use of insulin 2 Each 0 08/08/2019 Active Comment on above: [employer] (E0 8.40, Z79.4) 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, with long-term current use of insulin multivitamin-folic acid-biotin (LDOT-QDAL-QOBJC, [id number],) 400-2,000 mcg tab (20 sources) multivitamin-fol ic acid-biotin (XVBQ-TIXE-VHSZS, BR-WO-[id number],) 400-2,000 mcg tab Take by mouth. Active multivitamin-fol ic acid-biotin (ERWH-TQPE-AWYYI, HK-MS-KMFBCA,) 400-2,000 mcg tab Take by mouth. 0 Active Comment on above: Take by mouth. multivitamins(DAILY MULTIVITAMIN TAB) (20 sources) Start: 0 multivitamins(DAILY MULTIVITAMIN TAB) Take one(1) tablet daily. 0 12/08/2009 Active Comment on above: Take one(1) tablet d aily. omeprazole 40 mg delayed release oral capsule (7 sources) Proton Pump Inhibitor Start: 3 End: 4 take 40 mg by mouth once daily Omeprazole Active 40 MG PO DAILY June 10, 2023 11:00pm Comment on above: Take 40 mg by mouth once daily. ondansetron 4 mg oral tablet (20 sources) Serotonin-3 Receptor Antagonist Start: 4 take 1 tablet by mouth every eight hours as needed ondansetron (ZOFRAN) 4 mg tablet Take 1 tablet by mouth every 8 hours as needed for nausea/vomiting. 24 tablet 07/15/2024 Active oxyCODONE hydrochloride 5 mg oral tablet (1 source) Opioid Agonist Start: 3 take 5 mg by mouth every four hours as needed Oxycodone Active 5 MG PO EVERY 4 HOURS NEEDED 42 June 20, 2023 predniSONE 5 mg oral tablet (8 sources) Start: 3 Prednisone Active 5 MG PO As Directed July 19, 2023 12:00am see taper instructions Start: 05-09-2021 End: 06-08-2021 Prednisone Discontinued 10 M G PO daily May 08, 2021 11:00pm June 08, 2021 8:59am take 4 tabs for three days, then 3 tabs for three days, then 2 tabs for three days, then 1 tab for 3 days rosuvastatin calcium 10 mg oral tablet (20 sources) HMG-CoA Reductase Inhibitor Start: 06-11-2023 take 5 mg by mouth at bedtime Rosuvastatin Active 5 MG PO AT BEDTIME June 10, 2023 11:00pm Start: 10-25-2022 End: 12-24-2023 take 1 tablet by mouth once daily at bedtime rosuvastatin (CRESTOR) 10 mg tablet Take 1 tablet by mouth daily at bedtime. As directed 90 tablet 3 12/24/2023 Active Start: 10-25-2022 take 1 tablet by joe th once daily at bedtime rosuvastatin (CRESTOR) 10 mg tablet Take 1 tablet by mouth daily at bedtime. As directed 90 tablet 3 10/25/2022 Active Start: 10-25-2022 take 1 tablet by joe th once daily at bedtime rosuvastatin (CRESTOR) 10 mg tablet Take 1 tablet by mouth daily at bedtime. As directed 90 tablet 3 10/25/2022 Active Start: 10-25-2022 take 1 tablet by joe th once daily at bedtime rosuvastatin (CRESTOR) 10 mg tablet Take 1 tablet by mouth daily at bedtime. As directed 90 tablet 3 10/25/2022 Active Start: 10-25-2022 take 1 tablet by joe th once daily at bedtime rosuvastatin (CRESTOR) 10 mg tablet Take 1 tablet by mouth daily at bedtime. As directed 90 tablet 3 10/25/2022 Active Start: 10-05-2022 End: 02-06-2023 take 5 mg by mouth once daily Rosuvastatin Discontinue d 5 MG PO DAILY October 05, 2022 12:00am February 06, 2023 10:28am Start: 09-18-2022 End: 09-30-2022 take 1 tablet by mouth once daily at bedtime rosuvastatin (CRESTOR) 5 mg tablet Take 1 tablet by mouth daily at bedtime. As directed 90 tablet 2 09/18/2022 09/30/2022 Discontinued Start: 03-31-2022 take 1 tablet by joe th once daily at bedtime rosuvastatin (CRESTOR) 5 mg tablet Take 1 tablet by mouth daily at bedtime. As directed 30 tablet 0 03/31/2022 Active Comment on above: Take 1 tablet by joe th daily at bedtime. As directed SEMGLEE,INSULIN GLARG-YFGN,PEN 100 unit/mL (3 mL) insulin pen (17 sources) Start: SEMGLEE,INSULIN GLARG-YFGN,PEN 100 unit/mL (3 mL) insulin pen Inject 30 Units subcutaneously every morning. 10/14/2024 Active sertraline 50 mg oral tablet (20 sources) Serotonin Reuptake Inhibitor Start: 9 End: 3 take 1 tablet by mouth once daily sertraline (ZOLOFT) 50 mg tablet Take 1 tablet by mouth once daily. 90 tablet 3 09/18/2022 Active Start: 03-13-2017 End: 08-28-2018 take 75 mg by mouth once daily Sertraline Discontinued 75 MG PO DAILY March 12, 2017 11:00pm August 28, 2018 8:09am Comment on above: Take 1 tablet by joe th once daily. sulfamethoxazole 800 mg / trimethoprim 160 mg oral tablet (9 sources) Dihydrofolate Reductase Inhibitor Antibacterial, Sulfonamide Antimicrobial Start: 12-09-19 End: 05-05-20 24 take 1 tablet by mouth twice daily sulfamethoxazole- trimethoprim (BACTRIM DS) 800-160 mg per tablet Indications: Urinary frequency Take 1 tablet by mouth two times a day for 7 days. 14 tablet 0 12/09/2023 12/16/2023 Active Start: 01-18-2017 End: 03-14-2017 take 1 tablet by mouth twice daily Sulfamethoxazole-Trimethoprim Discontinu ed 1 TABLET PO TWICE A DAY January 17, 2017 11:00pm March 14, 2017 9:14am vibegron (GEMTESA) 75 mg tablet (20 sources) take 1 tablet by joe th once daily vibegron (GEMTESA) 75 mg tablet Take 75 mg by mouth once daily. Active take 1 tablet by mouth once sidney y vibegron (GEMTESA) 75 mg tablet Take 75 mg by mouth once daily. 0 Active Comment on above: Take 75 mg by mouth once daily. vit C/E/Zn/coppr/lutein/zeaxan (PRESERVISION AREDS-2 ORAL) (20 sources) vit C/E/Zn/coppr/lutein/zeaxan (PRESERVISION AREDS-2 ORAL) Take by mouth twice daily. Active vit C/E/Zn/coppr /lutein/zeaxan (PRESERVISION AREDS-2 ORAL) Take by mouth twice daily. 0 Active Comment on above: Take by mouth twice daily. vitamin b12 1 mg/ml injectable solution (20 sources) Vitamin B12 cyanocobalamin 1 ,000 mcg/mL Inject intramuscularly once every month. Active vitamin b6 250 mg oral tablet (20 sources) Start: 02-06-2023 Pyridoxine HCl 250 mg tablet DAILY 02/06/2023 Active Comment on above: DAILY 100 ml zoledronic acid 0.05 mg/ml injection (2 sources) Bisphosphonate Start: 01-29-2023 End: 02-28-2023 zoledronic acid 5 mg PREMIX piggyback (RECLAST) Completed/Discontinued Medications Medication Drug Class(es) Dates Sig (Normalized) Sig (Original) acetaminophen 325 mg / HYDROcodone bitartrate 5 mg oral tablet (13 sources) Opioid Agonist Start: 10-10-2022 End: 10-24-2022 take 1 tablet by mouth twice daily as needed for pain HYDROcodone-acetami nophen (NORCO) 5-325 mg per tablet Indications: Contusion of right foot, initial encounter , Contusion of caodaism region, initial encounter , Injury of coccyx, initial encounter , Facial pain , Jaw pain Take 1 tablet by mouth twice daily as needed for pain for up to 7 days. 14 tablet 0 10/10/2022 10/17/2022 Discontinued Start: 09-30-2022 End: 10-07-2022 take 1 tablet by mouth twice daily as needed for pain HYDROcodone-acetaminophen (NORCO) 5-325 mg per tablet Indications: Contusion of right foot, initial encounter , Contusion of caodaism region, initial encounter , Injury of coccyx, initial encounter , Facial pain , Jaw pain Take 1 tablet by mouth twice daily as needed for pain for up to 7 days. 14 tablet 0 09/30/2022 10/07/2022 Active Start: 03-13-2017 End: 08-28-2018 take 1 tablet by mouth twice daily as needed Hydrocodone-Acetaminophen Discontinued 1 TABLET PO TWICE DAILY NEEDED March 12, 2017 11:00pm August 28, 2018 8:08am Comment on above: Take 1 tablet by joe th twice daily as needed for pain for up to 7 days. atorvastatin 20 mg oral tablet (20 sources) HMG-CoA Reductase Inhibitor Start: 0 End: 4 take 1 tablet by mouth once daily atorvastatin (LIPITOR) 20 mg tablet Take 1 tablet by mouth once daily. 90 tablet 3 11/29/2020 01/02/2022 Discontinued Start: 03-13-2017 End: 01-03-2020 take 10 mg by mouth at bedtime Atorvastatin Discontinu ed 10 MG PO AT BEDTIME March 12, 2017 11:00pm January 03, 2020 10:28am Comment on above: Take 1 tablet by joe th once daily. DAILY benzonatate 100 mg oral capsule (3 sources) Non-narcotic Antitussive Start: 4 End: 4 take 2 capsules by mouth every eight hours as needed benzonatate (TESSALON PERLE) 100 mg capsule Take 2 capsules by mouth three times a day as needed for up to 10 days. 60 capsule 07/15/2024 07/25/2024 Start: 05-16-2022 End: 05-26-2022 take 2 capsules by mouth three times daily as needed benzonatate (TESSALON PERLE) 100 mg capsule Indications: Suspected COVID-19 virus infection Take 2 capsules by mouth three times daily as needed for up to 10 days. 60 capsule 0 05/16/2022 05/26/2022 Active Comment on above: Take 2 capsules by m outh three times daily as needed for up to 10 days. busPIRone hydrochloride 5 mg oral tablet (20 sources) Start: 12-30-19 End: 02-08-20 take 5 mg by mouth twice daily Buspirone Discontinued 5 MG PO TWICE A DAY October 10, 2021 12:00am February 07, 2022 10:13am calcium ascorbate 500 mg oral tablet (7 sources) Start: 10-12-19 End: 02-07-20 take 500 mg by mouth once daily Ascorbate Calcium (Vitamin C) Discontinued 500 MG PO DAILY October 11, 2020 12:00am February 06, 2023 10:16am cefdinir 300 mg oral capsule (3 sources) Cephalosporin Antibacterial Start: 06-12-20 End: 06-20-20 take 300 mg by mouth twice daily Cefdinir Discontinued 300 MG PO TWICE A DAY June 11, 2023 11:00pm June 20, 2023 9:22pm celecoxib 200 mg oral capsule (20 sources) Nonsteroidal Anti-inflammatory Drug Start: 10-10-19 End: 10-01-19 take 1 capsule by mouth once daily at mealtime celecoxib (CELEBREX) 200 mg capsule Take 1 capsule by mouth once daily. Take with food 30 capsule 5 10/10/2022 10/01/2023 Discontinued (Other) Comment on above: Take 1 capsule by mo uth once daily. Take with food cephalexin 250 mg oral capsule (20 sources) Cephalosporin Antibacterial Start: 02-07-20 End: 10-26-19 take 250 mg by mouth at bedtime Cephalexin Discontinued 250 MG PO AT BEDTIME February 05, 2023 11:00pm June 20, 2023 9:22pm Comment on above: Take 250 mg by mouth daily at bedtime. codeine phosphate 2 mg/ml / guaiFENesin 20 mg/ml oral solution (11 sources) Opioid Agonist Start: 07-15-20 End: 07-22-20 take 5 mL by mouth four times daily as needed codeine-guaiFENesin (VIRTUSSIN AC) 10-100 mg/5 mL syrup Indications: Chronic cough Take 5 mL by mouth four times a day as needed for up to 7 days. 118 mL 07/15/2024 07/22/2024 Start: 03-31-2022 End: 04-07-2022 take 5 mL by mouth four times daily as needed codeine-guaiFENesin (VIRTUSSIN AC) 10-100 mg/5 mL syrup Indications: Chronic cough Take 5 mL by mouth four times daily as needed for up to 7 days. 118 mL 0 03/31/2022 04/07/2022 Start: 11-22-2021 End: 01-21-2022 take 5 mL by mouth four times daily as needed codeine-guaiFENesin (VIRTUSSIN AC) 10-100 mg/5 mL syrup Indications: Chronic cough Take 5 mL by mouth four times daily as needed for up to 7 days. 118 mL 0 11/22/2021 01/21/2022 Discontinued Start: 01-01-2020 End: 10-05-2022 take 1 mL by mouth every six hours as needed Codeine-Guaifenesin Discontinued 5 ML PO EVERY 6 HOURS NEEDED December 31, 2019 11:00pm October 05, 2022 12:00pm Comment on above: Take 5 mL by mouth f our times daily as needed for up to 7 days. Collagen (7 sources) Start: 03-15-2021 End: 10-05-2022 Collagen (Bovine) Discontinued 1 APPLIC TOPICAL DAILY March 14, 2021 11:00pm October 05, 2022 12:00pm apply a 1/4 inches inch thick layer, do not pack tightly; cover using a non-adherent dressing Start: 03-15-2021 End: 10-05-2022 Collagen (Bovine) Discontinu ed 1 APPLIC TOPICAL DAILY March 15, 2021 12:00am October 05, 2022 1:00pm apply a 1/4 inches inch thick layer, do not pack tightly; cover using a non-adherent dressing Start: 03-15-2021 Collagen (Bovi ne) Active 1 APPLIC TOPICAL DAILY March 14, 2021 11:00pm apply a 1/4 inches inch thick layer, do not pack tightly; cover using a non-adherent dressing Cranberry (20 sources) Non-Standardized Food Allergenic Extract, Non-Standardized Plant Allergenic Extract Start: 03-15-2021 End: 06-20-2023 take 500 mg by mouth twice daily at mealtime Cranberry Discontinued 500 MG PO TWICE A DAY March 14, 2021 11:00pm June 20, 2023 9:22pm administer with meals Start: 03-15-2021 take 500 mg by mouth twice daily at mealtime Cranberry Active 500 MG PO TWICE A DAY March 15, 2021 12:00am administer with meals Start: 03-15-2021 take 500 mg by mouth twice daily at mealtime Cranberry Active 500 MG PO TWICE A DAY March 14, 2021 11:00pm administer with meals End: 10-01-2023 CRANBERRY 10/01/2023 Discont inued (Other) End: 10-01-2023 CRANBERRY 0 10/01/2023 Disco ntinued (Other) CRANBERRY 0 Acti ve empagliflozin 25 mg oral tablet (20 sources) Sodium-Glucose Cotransporter 2 Inhibitor Start: 10-24-2022 End: 10-01-2023 take 1 tablet by mouth once daily JARDIANCE 25 mg tablet Take 25 mg by mouth once daily. 12/18/2022 10/01/2023 Discontinued (Discontinued by another Health Care Provider) Comment on above: Take 25 mg by mouth once daily. estrogens, conjugated (chcf) 0.625 mg/ml vaginal cream (20 sources) Estrogen Start: 06-25-2019 End: 01-29-2023 PREMARIN vaginal cream APPLY 0.5 GRAMS VAGINALLY BEFORE BED EVERY NIGHT FOR 14 DAYS THEN USE TWICE A WEEK FOR 3 MONTHS 06/25/2019 01/29/2023 Discontinued (Discontinued by another Health Care Provider) Comment on above: APPLY 0.5 GRAMS VAGI DAVONTE BEFORE BED EVERY NIGHT FOR 14 DAYS THEN USE TWICE A WEEK FOR 3 MONTHS fexofenadine hydrochloride 180 mg oral tablet (20 sources) Histamine-1 Receptor Antagonist Start: 11-22-2021 End: 05-27-2024 take 1 tablet by mouth once daily fexofenadine (LYDIA) 180 mg tablet Take 1 tablet by mouth once daily. As directed for allergies 11/22/2021 05/27/2024 Discontinued Comment on above: Take 1 tablet by joe th once daily. As directed for allergies fluticasone propionate 0.05 mg/actuat metered dose nasal spray (7 sources) Corticosteroid Start: 02-21-2021 End: 02-06-2023 Fluticasone Propionate Discontinued 2 SPRAY INTRANASAL DAILY February 20, 2021 11:00pm February 06, 2023 10:20am glimepiride 2 mg oral tablet (7 sources) Sulfonylurea Start: 03-13-2017 End: 03-03-2020 take 2 mg by mouth twice daily Glimepiride Discontinued 2 MG PO TWICE A DAY March 12, 2017 11:00pm March 03, 2020 9:12am 3 ml insulin glargine 100 unt/ml pen injector (20 sources) Insulin Analog Start: 10-01-2023 End: 10-21-2024 insulin glargine (LANTUS SOLOSTAR U-100 INSULIN) 100 unit/mL (3 mL) Inject 20 Units subcutaneously daily at bedtime. (Dr. Genny Munguia refills) 10/01/2023 10/21/2024 Discontinued Start: 03-05-2023 Insulin Glargi ne (Lantus Solostar U-100 Insulin) 100 unit/mL (3 mL) insulin pen Active 20 UNIT SC AT BEDTIME March 05, 2023 9:17am Start: 03-05-2023 Insulin Glargi ne (Lantus Solostar U-100 Insulin) 100 unit/mL (3 mL) insulin pen Active 12 UNIT SC AT BEDTIME March 05, 2023 10:17am Start: 09-30-2022 End: 10-01-2023 insulin glargine (LANTUS FARZANA OSTAR U-100 INSULIN) 100 unit/mL (3 mL) Inject 14 Units subcutaneously daily at bedtime. (Dr. Genny Munguia refills) 09/30/2022 10/01/2023 Discontinued Start: 09-30-2022 insulin glargi ne (LANTUS SOLOSTAR U-100 INSULIN) 100 unit/mL (3 mL) Inject 14 Units subcutaneously daily at bedtime. (Dr. Genny Munguia refills) 0 09/30/2022 Active Start: 05-26-2021 End: 03-05-2023 Insulin Glargine (Lantus Farzana ostar U-100 Insulin) 100 unit/mL (3 mL) insulin pen Discontinued 22 UNIT SC DAILY June 14, 2022 11:52am March 05, 2023 9:18am Start: 11-29-2020 End: 09-30-2022 insulin glargine (LANTUS FARZANA OSTAR U-100 INSULIN) 100 unit/mL (3 mL) Inject 18 Units subcutaneously daily at bedtime. (Dr. Genny Munguia refills) 11/29/2020 09/30/2022 Discontinued Start: 05-17-2020 End: 05-26-2021 Insulin Glargine (Lantus Farzana ostar U-100 Insulin) 100 unit/mL (3 mL) insulin pen Discontinued 20 UNIT SC DAILY May 19, 2021 7:05am May 26, 2021 10:08am Start: 03-13-2017 End: 05-17-2020 inject 24 [IU] by subcutaneous injection at bedtime Insulin Glargine Discontinued 24 UNIT SQ AT BEDTIME March 12, 2017 11:00pm May 17, 2020 11:05am Comment on above: Inject 18 Units subc utaneously daily at bedtime. (Dr. Genny funes) Inject 14 Units subc utaneously daily at bedtime. (Dr. Genny funes) Inject 20 Units subc utaneously daily at bedtime. (Dr. Genny funes) ketoconazole 20 mg/ml topical cream (20 sources) Azole Antifungal Start: 01-27-20 End: 04-08-20 ketoconazole (NIZORAL) 2 % cream Apply 1 application to affected area twice daily. Continue for 1 week after rash resolves. 30 g 01/27/2020 04/08/2023 Discontinued (Course of therapy completed) Comment on above: Apply 1 application to affected area twice daily. Continue for 1 week after rash resolves. 24 hr mirabegron 50 mg extended release oral tablet (20 sources) beta3-Adrenergic Agonist Start: 10-24-19 End: 06-10-20 take 1 tablet by mouth twice daily mirabegron (MYRBETRIQ) 50 mg Tb24 Take 1 tablet by mouth twice daily. 10/24/2019 01/29/2023 Discontinued (Discontinued by another Health Care Provider) Comment on above: Take 1 tablet by joe th twice daily. Xmpxaljx-Njt-Zjfwi Acid-Biotin (Hair,Skin And Nails(Fa-Biotin)) 66.7-1,000 mcg tablet (7 sources) Start: 03-15-20 End: 06-10-20 take 66.7-1000 ug by mouth once Ficrryga-Wwt-Bbsdc Acid-Biotin (Hair,Skin And Nails(Fa-Biotin)) 66.7-1,000 mcg tablet Discontinued TABLET PO March 14, 2021 11:00pm June 10, 2023 5:28pm Start: 03-15-2021 End: 06-10-2023 take 66.7-1000 ug by mouth once Wutdqxfr-Gui-Epedu Acid-Biotin (Hair,Skin And Nails(Fa-Biotin)) 66.7-1,000 mcg tablet Discontinued TABLET PO March 15, 2021 12:00am June 10, 2023 6:28pm Start: 03-15-2021 take 66.7-1000 ug by mouth once Qvgtfult-Riz-Tuzyv Acid-Biotin (Hair,Skin And Nails(Fa-Biotin)) 66.7-1,000 mcg tablet Active TABLET PO March 14, 2021 11:00pm Multivitamin preparation (7 sources) Start: 03-13-2017 End: 06-10-2023 Multivitamin Discontinued 1 EACH PO DAILY March 12, 2017 11:00pm June 10, 2023 5:28pm Start: 03-13-2017 End: 06-10-2023 Multivitamin Discontinued 1 EACH PO DAILY March 13, 2017 12:00am June 10, 2023 6:28pm Start: 03-13-2017 Multivitamin A ctive 1 EACH PO DAILY March 12, 2017 11:00pm Multivitamin With Minerals (Hair,Skin And Nails) tablet (7 sources) Start: 10-11-2020 End: 02-06-2023 take 1 tablet by mouth once Multivitamin With Minerals (Hair,Skin And Nails) tablet Discontinued 1 TABLET PO ONCE October 11, 2020 12:00am February 06, 2023 10:27am Start: 10-11-2020 End: 02-06-2023 take 1 tablet by mouth once Multivitamin With Minerals (Hair,Skin And Nails) tablet Discontinued 1 TABLET PO ONCE October 11, 2020 1:00am February 06, 2023 11:27am Start: 10-11-2020 take 1 tablet by mouth once Mu ltivitamin With Minerals (Hair,Skin And Nails) tablet Active 1 TABLET PO ONCE October 11, 2020 12:00am naproxen 500 mg oral tablet (2 sources) Nonsteroidal Anti-inflammatory Drug Start: 09-30-2022 End: 10-14-2022 take 1 tablet by mouth every twelve hours as needed naproxen (NAPROSYN) 500 mg tablet Take 1 tablet by mouth twice daily as needed (for pain/inflammation) for up to 14 days. Take with food. 28 tablet 0 09/30/2022 10/10/2022 Discontinued Comment on above: Take 1 tablet by mouth twice daily as ne eded (for pain/inflammation) for up to 14 days. Take with food. 24 hr oxybutynin chloride 10 mg extended release oral tablet (20 sources) Cholinergic Muscarinic Antagonist Start: 03-15-2021 End: 10-10-2021 take 10 mg by mouth once daily Oxybutynin Chloride Discontinued 10 MG PO DAILY March 14, 2021 11:00pm October 10, 2021 10:17am Start: 05-27-2020 End: 12-29-2020 take 10 mg by mouth once daily Oxybutynin Chloride Dis continued 10 MG PO DAILY May 26, 2020 11:00pm December 29, 2020 9:04am Start: 08-08-2019 End: 01-29-2023 take 1 tablet by mouth twice daily oxybutynin ER (DITROPAN XL) 10 mg 24 hr tablet Take 1 tablet by mouth twice daily. (Dr Don) 08/08/2019 01/29/2023 Discontinued (Discontinued by another Health Care Provider) Comment on above: Take 1 tablet by joe twice daily. (Dr Don) PEP (7 sources) Start: 09-23-2018 End: 10-01-2018 PEP Discontinued September 23, 2018 1:00am October 01, 2018 2:07pm As directed Start: 09-23-2018 End: 10-01-2018 PEP Discontinued September 23, 2018 12:00am October 01, 2018 1:07pm As directed PEP device (7 sources) Start: 03-30-2020 End: 06-11-2023 PEP device Discontinued 0 .R OUTE .MEDSUPPLY March 29, 2020 11:00pm June 11, 2023 7:24am with training Start: 03-30-2020 PEP device Act aura 0 .ROUTE .MEDSUPPLY 1 March 30, 2020 12:00am with training Start: 03-30-2020 PEP device Act aura 0 .ROUTE .MEDSUPPLY 1 March 29, 2020 11:00pm with training perflutren lipid microspheres 1.3 mL in NaCl (PF) 0.9% 10 mL injection (DEFINITY) (20 sources) Start: 07-25-2021 End: 10-25-2022 perflutren lipid microspheres 1.3 mL in NaCl (PF) 0.9% 10 mL injection (DEFINITY) pregabalin 50 mg oral capsule (20 sources) Start: 12-29-2020 End: 10-05-2022 take 1 capsule by mouth twice daily pregabalin (LYRICA) 50 mg capsule Indications: 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 180 capsule 1 03/31/2021 09/24/2021 Discontinued Comment on above: Take 1 capsule by [facility] twice daily for 180 days. prevision ardeds (11 sources) Start: 02-06-2023 End: 06-10-2023 prevision ardeds Discontinued PO TWICE A DAY February 06, 2023 10:30am June 10, 2023 5:28pm Start: 02-06-2023 End: 06-10-2023 prevision ardeds Discontinue d PO TWICE A DAY February 06, 2023 11:30am June 10, 2023 6:28pm Start: 03-15-2021 End: 02-06-2023 prevision ardeds Discontinue d PO March 14, 2021 11:00pm February 06, 2023 10:32am Start: 03-15-2021 End: 02-06-2023 prevision ardeds Discontinue d PO March 15, 2021 12:00am February 06, 2023 11:32am Start: 03-15-2021 prevision arde ds Active PO March 14, 2021 11:00pm 125 ml sodium chloride 9 mg/ml prefilled syringe (20 sources) Start: 07-25-2021 End: 10-25-2022 sodium chloride 0.9 % (flush) 10 mL (BD POSIFLUSH) SUMAtriptan 50 mg oral tablet (20 sources) Serotonin-1b and Serotonin-1d Receptor Agonist Start: 03-13-2017 End: 01-29-2023 take 1 tablet by mouth every hour as needed SUMAtriptan (IMITREX) 50 mg tablet Take 1 tablet by mouth. at onset of headache. May take another tablet as needed one hour later. 10 tablet 5 11/01/2018 01/29/2023 Discontinued (Discontinued by another Health Care Provider) Comment on above: Take 1 tablet by oje th. at onset of headache. May take another tablet as needed one hour later. toviav (7 sources) Start: 03-15-2021 End: 02-06-2023 toviav Discontinued 0 .Route .MEDSUPPLY March 14, 2021 11:00pm February 06, 2023 10:31am Start: 03-15-2021 End: 02-06-2023 toviav Discontinued 0 .Route .MEDSUPPLY March 15, 2021 12:00am February 06, 2023 11:31am Start: 03-15-2021 toviav Active 0 .Route .MEDSUPPLY March 14, 2021 11:00pm Problems Active Problems Problem Classification Problem Date Documented Da te Episodic/Chronic Acute cerebrovascular disease (12 sources) Ischemic stroke; 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: [Cerebral infarction, unspecified] Onset: 09-08-2024 09-07-2020 Chronic Anxiety disorders (20 sources) Anxiety; 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: [Anxiety disorder, unspecified] Onset: 05-03-2011 Chronic Cancer of bronchus; lung (20 sources) Carcinoid bronchial adenoma; 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] Onset: 07-28-2015 07-28-2015 Chronic Chronic obstructive pulmonary disease and bronchiectasis (20 sources) Bronchiectasis; 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: [Bronchiectasis, uncomplicated] Onset: 05-31-2023 Chronic Conditions associated with dizziness or vertigo (1 source) Lightheadedness; 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: [Dizziness and giddiness] 01-31-2024 Episodic Diabetes mellitus with complications (20 sources) Secondary diabetes mellitus; 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: [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, unspecified] Onset: 02-07-2010 08-15-2016 Chronic Diabetes mellitus without complication (20 sources) Latent autoimmune diabetes mellitus in adult; 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 diabetes mellitus without complications] Onset: 07-02-2023 Chronic Disorders of lipid metabolism (20 sources) Hyperlipidemia; 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: [Hyperlipidemia, unspecified] Onset: 12-14-2009 Resolved: 11-11-2014 11-06-2016 Chronic E Codes: Fall (1 source) Fall; 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: [Unspecified fall, initial encounter] Episodic Esophageal disorders (20 sources) Gonzales's esophagus; 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: [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] Onset: 10-08-2014 Resolved: 10-08-2014 09-18-2007 Chronic Essential hypertension (20 sources) Hypertensive disorder; 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: [Essential (primary) hypertension] Onset: 08-04-2013 Chronic Gastritis and duodenitis (1 source) Chronic gastritis; [...] Episodic Immunizations and screening for infectious disease (2 sources) Suspected disease caused by 2019-nCoV; 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: [Suspected COVID-19 virus infection] Episodic Late effects of cerebrovascular disease (3 sources) 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; 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: [Hemiplegia and hemiparesis following cerebral infarction affecting right dominant side] Onset: 01-19-2025 12-17-2024 Chronic Malaise and fatigue (20 sources) Fatigue; 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: [Other fatigue] Onset: 07-02-2023 06-07-2023 Episodic Mood disorders (6 sources) Depressive disorder; 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: [Depression] 06-13-2023 Chronic Mood disorders (2 sources) Mood disorders; 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: [Depression, unspecified] Onset: 09-19-2024 Nutritional deficiencies (20 sources) Vitamin D deficiency; 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: [Vitamin D deficiency, unspecified] Onset: 03-10-2018 03-10-2018 Chronic Nutritional deficiencies (3 sources) Vitamin B6 deficiency; 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: [Pyridoxine deficiency] Episodic Occlusion or stenosis of precerebral arteries (1 source) Occlusion and stenosis of unspecified carotid artery; 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: [Occlusion and stenosis of unspecified carotid artery] Onset: 09-02-2024 Chronic Osteoarthritis (20 sources) Degenerative joint disease involving multiple joints; 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: [Polyosteoarthritis, unspecified] Onset: 03-06-2006 03-06-2006 Chronic Osteoporosis (20 sources) Osteoporosis; 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: [Age-related osteoporosis without current pathological fracture] Onset: 02-19-2006 02-19-2006 Chronic Other aftercare (6 sources) Patient encounter status; 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: [Other longwall foreman (current) drug therapy] Episodic Other aftercare (7 sources) Long-term current use of insulin; 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: [computer terminal operator (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] 03-03-2020 Episodic Other aftercare (2 sources) computer terminal operator (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; 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: [nursing home (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] Onset: 09-19-2024 Episodic Other and ill-defined cerebrovascular disease (7 sources) 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 disease; 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: [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 disease, unspecified] 12-29-2020 Chronic Other and ill-defined cerebrovascular disease (6 sources) 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 disease, unspecified; 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: [Unspecified cerebrovascular disease] Onset: 09-19-2024 Chronic Other and ill-defined heart disease (1 source) Other ill-defined heart diseases; 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: [Other ill-defined heart diseases] Onset: 09-19-2024 Chronic Other circulatory disease (7 sources) History of cerebrovascular accident due to ischemia; 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: [Personal history of transient ischemic attack (TIA), and cerebral infarction without residual deficits] 12-29-2020 Episodic Other connective tissue disease (1 source) [...] (1 source) Pain in right foot; 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: [Pain in right foot] 01-01-2023 Episodic Other connective tissue disease (1 source) Swelling of right lower limb; 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 soft tissue disorders] 07-04-2024 Episodic Other connective tissue disease (1 source) Muscle weakness (generalized); 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: [Muscle weakness (generalized)] Onset: 01-27-2025 Episodic Other disorders of stomach and duodenum [...] legs syndrome] Onset: 06-19-2006 11-11-2014 Chronic Other hereditary and degenerative nervous system conditions (4 sources) Impaired cognition; 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: [Mild cognitive impairment, so stated] 10-05-2022 Chronic Other hereditary and degenerative nervous system conditions (2 sources) Mild cognitive impairment, so stated; 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: [Mild cognitive impairment of uncertain or unknown etiology] Onset: 09-19-2024 Chronic Other injuries and conditions due to external causes (2 sources) Injury of ankle; 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: [Unspecified injury of unspecified ankle, initial encounter] Episodic Other injuries and conditions due to external causes (3 sources) Injury of coccyx; 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: [Unspecified injury of lower back, initial encounter] Episodic Other injuries and conditions due to external causes (2 sources) Injury of head; 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: [Unspecified injury of head, subsequent encounter] Episodic Other lower respiratory disease (8 sources) Dyspnea; 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: [Dyspnea, unspecified] 07-26-2022 Episodic Other lower respiratory disease (1 source) Cough; 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: [Acute cough] 02-12-2024 Episodic Other lower respiratory disease (2 sources) Hypoxemia; 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: [Hypoxemia] Onset: 08-10-2024 Episodic Other nervous system disorders (20 sources) Intercostal neuralgia; 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 mononeuropathies] Onset: 11-03-2016 11-06-2016 Chronic Other nervous system disorders (20 sources) Neuropathy; 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: [Polyneuropathy, unspecified] Onset: 11-18-2021 11-18-2021 Chronic Other nervous system disorders (7 sources) Polyneuropathy; 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: [Polyneuropathy, unspecified] 07-13-2020 Chronic Other nervous system disorders (13 sources) Polyneuropathy, unspecified; 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: [Unspecified hereditary and idiopathic peripheral neuropathy] Onset: 09-19-2024 Chronic Other nervous system disorders (1 source) Aphasia; 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: [Aphasia] Onset: 09-02-2024 Chronic Other nervous system disorders (1 source) Encephalopathy, unspecified; 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: [Encephalopathy, unspecified] Onset: 08-20-2024 Chronic Other nervous system disorders (8 sources) Abnormal gait; 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: [Unspecified abnormalities of gait and mobility] 07-13-2020 Episodic Other nervous system disorders (1 source) Unspecified abnormalities of gait and mobility; 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: [Unspecified abnormalities of gait and mobility] Onset: 01-27-2025 Episodic Other nutritional; endocrine; and metabolic disorders (1 source) Other disorders of phosphorus metabolism; 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: [Other disorders of phosphorus metabolism] Onset: 09-19-2024 Chronic Other upper respiratory disease (20 sources) Allergic rhinitis; 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: [Allergic rhinitis, unspecified] Onset: 03-06-2006 03-06-2006 Chronic Other upper respiratory infections (1 source) Chronic sinusitis; 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: [Chronic sinusitis, unspecified] 02-12-2024 Chronic Other upper respiratory infections (1 source) Viral upper respiratory tract infection; 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: [Acute upper respiratory infection, unspecified] 04-08-2023 Episodic Paralysis (1 source) Hemiplegia, unspecified affecting right dominant side; 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: [Hemiplegia, unspecified affecting right dominant side] Onset: 01-27-2025 Chronic Residual codes; unclassified (1 source) Bilateral lower limb edema; 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: [Localized edema] Episodic Residual codes; unclassified (2 sources) Postmenopausal state; 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: [Asymptomatic menopausal state] Episodic Septicemia (except in labor) (12 sources) Sepsis; 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: [Sepsis, unspecified organism] 06-10-2023 Episodic Spondylosis; intervertebral disc disorders; other back problems (20 sources) Displacement of lumbar intervertebral disc without myelopathy; 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: [Other intervertebral disc displacement, lumbar region] Chronic Superficial injury; contusion (6 sources) Contusion of right foot; 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: [Contusion of right foot, initial encounter] Episodic Syncope (5 sources) Syncope; 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: [Syncope and collapse] Onset: 07-12-2024 01-31-2024 Episodic Thyroid disorders (1 source) Hypothyroidism, unspecified; 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: [Hypothyroidism, unspecified] Onset: 11-10-2024 Chronic Unclassified (13 sources) Body mass index 25-29 - overweight; 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: [Body mass index (BMI) of 25.0 to 29.9] Unclassified (1 source) Acidosis, unspecified; 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: [Acidosis, unspecified] Onset: 09-19-2024 Unclassified (1 source) Acute candidiasis of vulva and vagina; 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: [Acute candidiasis of vulva and vagina] Onset: 09-19-2024 Urinary tract infections (20 sources) Urinary tract infectious disease; 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: [Urinary tract infection, site not specified] Onset: 09-19-2024 Episodic Past or Other Problems Problem Classification Problem Date Documented Da te Episodic/Chronic Abdominal pain (1 source) Unspecified abdominal pain; 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: [Unspecified abdominal pain] Onset: 5 Episodic Cancer of bronchus; lung (20 sources) History of malignant neoplasm of thoracic cavity structure; 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: [Personal history of other malignant neoplasm of bronchus and lung] Onset: 3 06-13-2023 Episodic Cataract (20 sources) Cataract; 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: [Unspecified cataract] Onset: 3 Resolved: 7 08-08-2021 Chronic Diabetes mellitus without complication (1 source) Hyperglycemia, unspecified; 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: [Hyperglycemia, unspecified] Onset: 5 Episodic Diseases of mouth; excluding dental (20 sources) Xerostomia; 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: [Dry mouth, unspecified] Onset: 7 11-06-2016 Episodic Disorders of teeth and jaw (20 sources) Temporomandibular joint disorder; 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: [Unspecified temporomandibular joint disorder, unspecified side] Onset: 9 11-22-2018 Episodic Esophageal disorders (20 sources) Esophagitis; 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: [Esophagitis, unspecified] Onset: 2 11-23-2011 Episodic Fluid and electrolyte disorders (20 sources) Dehydration; 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: [Dehydration] Onset: 3 06-13-2023 Episodic Gastritis and duodenitis (20 sources) Acute gastritis; 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: [Acute gastritis without bleeding] Onset: 8 Resolved: 7 09-15-2016 Episodic Genitourinary symptoms and ill-defined conditions (3 sources) Increased frequency of urination; 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: [Frequency of micturition] Onset: 5 12-09-2023 Episodic Intestinal infection (20 sources) Clostridium difficile diarrhea; 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: [Enterocolitis due to Clostridium difficile, not specified as recurrent] Onset: 2 Resolved: 7 09-15-2016 Episodic Lymphadenitis (20 sources) Lymphadenopathy; 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: [Enlarged lymph nodes, unspecified] Onset: 7 Resolved: 7 08-15-2016 Episodic Mycoses (1 source) Other urogenital candidiasis; 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: [Other urogenital candidiasis] Onset: 5 Episodic Nonspecific chest pain (9 sources) Acute chest pain; 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: [Chest pain, unspecified] Onset: 5 04-18-2019 Episodic Other aftercare (1 source) Other longwall foreman (current) drug therapy; 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: [Other longwall foreman (current) drug therapy] Onset: 5 Episodic Other circulatory disease (20 sources) History of cerebrovascular accident; 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: [Personal history of transient ischemic attack (TIA), and cerebral infarction without residual deficits] Onset: 6 11-18-2021 Episodic Other circulatory disease (11 sources) Personal history of transient ischemic attack (TIA), and cerebral infarction without residual deficits; 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: [Personal history of transient ischemic attack (TIA), and cerebral infarction without residual deficits] Onset: 5 Episodic Other circulatory disease (1 source) Orthostatic hypotension; 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: [Orthostatic hypotension] Onset: 5 Episodic Other connective tissue disease (20 sources) Full thickness rotator cuff tear; 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: [Complete rotator cuff tear or rupture of unspecified shoulder, not specified as traumatic] Onset: 3 Resolved: 7 08-15-2016 Episodic Other connective tissue disease (20 sources) Tendonitis of right ankle; 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: [Other enthesopathy of right foot and ankle] Onset: 1 Resolved: 7 08-15-2016 Episodic Other connective tissue disease (1 source) Facial weakness; 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: [Facial weakness] Onset: 5 Episodic Other connective tissue disease (1 source) Pain in right lower leg; 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: [Pain in right lower leg] Onset: 4 Episodic Other diseases of bladder and urethra (1 source) Intrinsic sphincter deficiency (ISD); 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: [Intrinsic sphincter deficiency (ISD)] Onset: 4 Episodic Other disorders of stomach and duodenum (20 sources) Nonulcer dyspepsia; 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: [Functional dyspepsia] Onset: 8 08-20-2017 Episodic Other gastrointestinal disorders (1 source) Dysphagia, unspecified; 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: [Dysphagia, unspecified] Onset: 5 Episodic Other gastrointestinal disorders (1 source) Full incontinence of feces; 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: [Full incontinence of feces] Onset: 5 Episodic Other lower respiratory disease (20 sources) Chronic cough; 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: [Chronic cough] Onset: 0 01-27-2020 Episodic Other lower respiratory disease (4 sources) Dyspnea, unspecified; 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: [Other respiratory abnormalities] Onset: 4 Episodic Other lower respiratory disease (20 sources) Hypoxia; 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: [Hypoxemia] Onset: 5 Resolved: 7 08-08-2021 Episodic Other lower respiratory disease (1 source) Pleurodynia; 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: [Pleurodynia] Onset: 5 Episodic Other nervous system disorders (1 source) Paresthesia of skin; 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: [Paresthesia of skin] Onset: 5 Episodic Other screening for suspected conditions (not mental disorders or infectious disease) (8 sources) Thyroid function tests abnormal; 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: [Abnormal results of thyroid function studies] Onset: 5 03-03-2020 Episodic Other skin disorders (20 sources) Finding of region of thorax; 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: [Localized swelling, mass and lump, trunk] Onset: 8 Resolved: 5 04-30-2015 Episodic Other upper respiratory disease (20 sources) Bronchospasm; 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: [Other diseases of bronchus, not elsewhere classified] Onset: 5 01-21-2015 Episodic Other upper respiratory disease (1 source) Other diseases of bronchus, not elsewhere classified; 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: [Recurrent bronchospasm] Onset: 5 Episodic Residual codes; unclassified (20 sources) Insomnia; 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: [Insomnia, unspecified] Onset: 7 04-30-2007 Episodic Residual codes; unclassified (20 sources) History of lung lobectomy; 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: [Acquired absence of lung [part of]] Onset: 2 08-28-2018 Episodic Residual codes; unclassified (2 sources) Acquired absence of lung [part of]; 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: [Other postprocedural status] Onset: 5 Episodic Residual codes; unclassified (2 sources) Asymptomatic menopausal state; 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: [Asymptomatic menopausal state] Onset: 5 Episodic Residual codes; unclassified (1 source) Altered mental status, unspecified; 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: [Altered mental status, unspecified] Onset: 5 Episodic Spondylosis; intervertebral disc disorders; other back problems (3 sources) Lumbar radiculopathy; 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: [Radiculopathy, lumbar region] Onset: 5 07-19-2023 Episodic Sprains and strains (20 sources) Sprain of shoulder rotator cuff; Translations: [Sprain of unspecified rotator cuff capsule, initial encounter] Onset: 3 Resolved: 3 12-07-2003 Episodic Unclassified (20 sources) Drug therapy finding; Translations: [DVT prophylaxis] Onset: 5 Resolved: 7 08-08-2021 Unclassified (20 sources) DISPOSITION AND FOLLOW-UP Onset: 5 Resolved: 7 08-08-2021 Viral infection (2 sources) Viral disease; Translations: [Viral infection, unspecified] Onset: 4 05-27-2024 Episodic Results Test Name Value Interpretation Reference Range Facility MR/PAT.ANEon 04-03-2025 MR/PAT.ANE Normal [facility] 12 Lead EKGon 08-21-2025 12 Lead EKG [facility] MR/PAT.ANEon 04-02-2025 MR/PAT.ANE Normal [facility] Basic Metabolic Profile (BMP )on 04-01-2025 BUN/CRE 27.9 RATIO High - [facility] Comment on above: Performed By: #### L 100.0500, L500.2500 ####[facility] [address] [place], [address] Calcium [Mass/Vol] 9.3 mg/dL Normal 7.6-11.0 [facility] Comment on above: Performed By: #### L 100.0500, L500.2500 ####[facility] [address] [place], [address] Chloride [Moles/Vol] 104 mmol/L Normal 98-108 [facility] Comment on above: Performed By: #### L 100.0500, L500.2500 ####[facility] [address] [place], [address] CO2 [Moles/Vol] 26.5 mmol/L Normal 21.0-32.0 [facility] Comment on above: Performed By: #### L 100.0500, L500.2500 ####[facility] [address] [place], [address] Creatinine [Mass/Vol] 0.61 mg/dL Low 0.70-1.20 [facility] Comment on above: Performed By: #### L 100.0500, L500.2500 ####[facility] [address] [place], [address] GAP 12 Normal -15 [facility] Comment on above: Performed By: #### L 100.0500, L500.2500 ####[facility] [address] [place], [address] GFR/1.73 sq M.predicted among non-blacks MDRD (S/P/Bld) [Vol rate/Area] 89 mL/min/{1.73_m2} Normal >60 [facility] Comment on above: Result Comment: mL/m in/1.73m2 CKD-EPI Creatinine Equation (2020) Performed By: #### L 100.0500, L500.2500 ####[facility] [address] [place], [address] Glucose [Mass/Vol] 110 mg/dL High 70-99 [facility] Comment on above: Performed By: #### L 100.0500, L500.2500 ####[facility] [address] [place], [address] Potassium [Moles/Vol] 4.0 mmol/L Normal 3.3-5.1 [facility] Comment on above: Performed By: #### L 100.0500, L500.2500 ####[facility] [address] [place], [address] Sodium [Moles/Vol] 142 mmol/L Normal 133-145 [facility] Comment on above: Performed By: #### L 100.0500, L500.2500 ####[facility] [address] [place], [address] Urea nitrogen [Mass/Vol] 17 mg/dL Normal 4-19 [facility] Comment on above: Performed By: #### L 100.0500, L500.2500 ####[facility] [address] [place], [address] CBC-Complete Blood Cnt No Di ffon 04-01-2025 Erythrocyte distribution width (RBC) [Ratio] 12.9 % Normal 11.6-14.6 [facility] Comment on above: Performed By: #### L 100.0500, L500.2500 ####[facility] [address] [place], [address] Hematocrit (Bld) [Volume fraction] 36.5 % Low 37-47 [facility] Comment on above: Performed By: #### L 100.0500, L500.2500 ####[facility] [address] [place], [address] Hemoglobin (Bld) [Mass/Vol] 12.3 g/dL Normal 12.0-15.0 [facility] Comment on above: Performed By: #### L 100.0500, L500.2500 ####[facility] [address] [place], [address] MCH (RBC) [Entitic mass] 30.8 pg Normal 27.0-32.0 [facility] Comment on above: Performed By: #### L 100.0500, L500.2500 ####[facility] [address] [place], [address] MCHC (RBC) [Mass/Vol] 33.7 g/dL Normal 32-36 [facility] Comment on above: Performed By: #### L 100.0500, L500.2500 ####[facility] [address] [place], [address] MCV (RBC) [Entitic vol] 91.3 fL Normal 81-99 [facility] Comment on above: Performed By: #### L 100.0500, L500.2500 ####[facility] [address] [place], [address] Platelet mean volume (Bld) [Entitic vol] 10.3 fL Normal 6.2-12.0 [facility] Comment on above: Performed By: #### L 100.0500, L500.2500 ####[facility] [address] [place], [address] Platelets (Bld) [#/Vol] 287 10*3/uL Normal 150-450 [facility] Comment on above: Performed By: #### L 100.0500, L500.2500 ####[facility] [address] [place], [address] RBC (Bld) [#/Vol] 4.00 10*6/uL Low 4.2-5.4 [facility] Comment on above: Performed By: #### L 100.0500, L500.2500 ####[facility] [address] [place], [address] RDW SD 42.3 fl Normal 35.1-43.9 [facility] Comment on above: Performed By: #### L 100.0500, L500.2500 ####[facility] [address] [place], [address] WBC (Bld) [#/Vol] 7.9 10*3/uL Normal 4.4-11.0 [facility] Comment on above: Performed By: #### L 100.0500, L500.2500 ####[facility] [address] [place], [address] Hemoglobin A1con 04-01-2025 HbA1c (Bld) [Mass fraction] 8.5 % High <=5.6 [facility] Comment on above: Result Comment: Norm al < 5.7 % Prediabetic 5.7 - 6.4 % Diabetic >or= 6.5 % Please note range changes. Performed By: #### L 501.9985, L500.3400, L300.3900, L300.4310 ####[facility] [address] [place], [address] Liver Profileon 04-01-2025 Albumin [Mass/Vol] 4.1 g/dL Normal 3.4-4.8 [facility] Comment on above: Performed By: #### L 501.9985, L500.3400, L300.3900, L300.4310 ####[facility] [address] [place], [address] ALK PHOS 114 U/L High 35-104 [facility] Comment on above: Performed By: #### L 501.9985, L500.3400, L300.3900, L300.4310 ####[facility] [address] [place], [address] ALT [Catalytic activity/Vol] 15 U/L Normal <=34 [facility] Comment on above: Performed By: #### L 501.9985, L500.3400, L300.3900, L300.4310 ####[facility] [address] [place], [address] AST [Catalytic activity/Vol] 18 U/L Normal <=31 [facility] Comment on above: Performed By: #### L 501.9985, L500.3400, L300.3900, L300.4310 ####[facility] [address] [place], [address] Bilirubin [Mass/Vol] 0.41 mg/dL Normal 0.00-1.30 [facility] Comment on above: Performed By: #### L 501.9985, L500.3400, L300.3900, L300.4310 ####[facility] [address] [place], [address] Bilirubin.direct [Mass/Vol] 0.19 mg/dL Normal 0.00-0.30 [facility] Comment on above: Performed By: #### L 501.9985, L500.3400, L300.3900, L300.4310 ####[facility] [address] [place], [address] Globulin (S) [Mass/Vol] 2.9 g/dL Normal 2.2-4.2 [facility] Comment on above: Performed By: #### L 501.9985, L500.3400, L300.3900, L300.4310 ####[facility] [address] [place], [address] T PROT 7.0 g/dL Normal 5.9-8.4 [facility] Comment on above: Performed By: #### L 501.9985, L500.3400, L300.3900, L300.4310 ####[facility] [address] [place], [address] MR/BMS.BUSon 04-01-2025 MR/BMS.BUS Normal [facility] Partial Thromboplast Timeon 04-01-2025 aPTT Coag (Bld) [Time] 25.4 s Normal 24.1-36.2 [facility] Comment on above: Performed By: #### L 501.9985, L500.3400, L300.3900, L300.4310 ####[facility] [address] [place], [address] Prothrombin Time w/INRon INR Coag (PPP) [Relative time] 1.0 {INR} Normal [facility] Comment on above: Performed By: #### L 501.9985, L500.3400, L300.3900, L300.4310 ####[facility] [address] [place], [address] PT Coag (PPP) [Time] 13.3 s Normal 11.7-14.9 [facility] Comment on above: Performed By: #### L 501.9985, L500.3400, L300.3900, L300.4310 ####[facility] [address] [place], [address] Office Visit Reporton 2024 Office Visit Report Normal [facility] Neurology Visit Reporton Neurology Visit Report Normal [facility] Endocrinology Visit Reporton 02-19-2025 Endocrinology Visit Report Normal [facility] Office Visit Reporton 2024 Office Visit Report Normal [facility] Internal Medicine Office Vis iton 02-03-2025 Internal Medicine Office Visit Normal [facility] Office Visit Reporton 2024 Office Visit Report Normal [facility] MR/BMS.BPon 01-01-2025 MR/BMS.BP Normal [facility] CNPNon 12-18-2024 CNPN Telephone (INTMWS) DIANELYSHERIBERTOVINCENT Wheeler ([id number]) 1940 F Date Time Provider Department 12/18/24 ALICIA BLOUNT INTMWS During your visit today, we recorded the following information about you: Mansi Preston LPN 12/18/2024 11:26 AM Signed Shani from [facility] Home Health calling with plan of care starting next week, OT 2 visits weekly for 3 weeks, working on balance and ADL's and meal prep. Do not need a call back. Alicia Blount MD 12/19/2024 2:00 AM Signed Noted. Alicia Blount MD Allergies As of Date: 12/18/2024 Noted Allergy Reaction ADHESIVE TAPE (ROSINS) 08/31/2008 4 - Hives Comments: Rash around bandaid never been tested for latex allergy ASPIRIN 04/16/2018 15 - Contraindication-Medical [place]* Comments: GI bleed BONIVA (IBANDRONATE) 12/04/2008 8 - GI Upset Comments: Esophageal burning CARAFATE (SUCRALFATE) 04/24/2012 14 - Other: See Comments Comments: feels poorly CIPROFLOXACIN 12/01/2013 14 - Other: See Comments Comments: photosensitivity, dermatitis CODEINE 08/24/2005 8 - GI Upset IBUPROFEN 03/22/2006 8 - GI Upset IODINATED CONTRAST MEDIA 06/10/2023 11 - Vomiting IODINE 08/25/2008 11 - Vomiting LANSOPRAZOLE 11/01/2011 6 - Diarrhea MACROBID (NITROFURANTOIN MONOHYD/*11/22/2021 8 - GI Upset 10 - Anaphylaxis Comments: Headache, nausea, stomach pain METFORMIN 05/10/2011 6 - Diarrhea MICONAZOLE 12/29/2020 14 - Other: See Comments NEOSPORIN (XOOIGMSQ-XJZSEHDHMV-OG* 2 - Rash Comments: blisters PIOGLITAZONE 12/29/2020 16 - Unknown PROTONIX (PANTOPRAZOLE) 01/13/2010 6 - Diarrhea RELAFEN (NABUMETONE) 03/22/2006 8 - GI Upset 11 - Vomiting SHRIMP 12/21/2021 8 - GI Upset ACTOS (PIOGLITAZONE HCL) 12/03/2016 7 - Swelling Date Reviewed: 07/15/2024 Reviewed by: Edwige Reyes LPN - Fully Assessed Reason for Visit: OT plan of care [Other] Prescriptions as of 12/19/2024 - SEMGLEE,INSULIN GLARG-YFGN,PEN 100 unit/mL (3 mL) insulin pen Inject 30 Units subcutaneously every morning. - insulin 75/25 lispro protamine-lispro units/mL (HUMALOG MIX 75-25,U-100,INSULN) 100 units/mL suspension 10 units TID and a sliding scale s-- he will get 1 units for every 50 points she is over 200. - ondansetron (ZOFRAN) 4 mg tablet Take 1 tablet by mouth every 8 hours as needed for nausea/vomiting. - VENTOLIN HFA 90 mcg/actuation inhaler Inhale 2 Puffs as instructed every 4 hours as needed for wheezing/shortness of breath. - amoxicillin-clavulanate potassium (AUGMENTIN) 875-125 mg per tablet Take 1 tablet by mouth two times a day. - LORazepam (ATIVAN) 1 mg tablet Take 0.5-1 tablets by mouth once daily as needed for up to 90 days. Patient should start on June 05, 2024. - metoprolol succinate ER (TOPROL XL) 200 mg 24 hr tablet Take 1 tablet by mouth once daily. - Acidophilus-Bif Animalis 10 billion cell cap Take 1 capsule by mouth once daily. - gabapentin (NEURONTIN) 300 mg capsule Take 1 capsule by mouth two times a day for 180 days. Morning and bedtime - cyanocobalamin 1,000 mcg/mL Inject intramuscularly once every month. - rosuvastatin (CRESTOR) 10 mg tablet Take 1 tablet by mouth daily at bedtime. As directed - esomeprazole (NEXIUM) 40 mg capsule Take 1 capsule by mouth daily at 6 am. - insulin aspart U-100 (NOVOLOG FLEXPEN U-100 INSULIN) 100 unit/mL (3 mL) Inject 28 Units subcutaneously daily with breakfast AND 28 Units daily with lunch AND 28 Units daily with dinner. Adjust as directed. (Dr. Genny Munguia refjere) Also has SSI. - Insulin Rochelle, Disposable, (BD ULTRA-FINE FOZIA PEN NEEDLE) 32 gauge x 5/32 Use one needle for each dose, 4 times daily. 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 - Pyridoxine HCl 250 mg tablet DAILY - DULoxetine (CYMBALTA) 60 mg capsule Take 1 capsule by mouth daily at bedtime. - flash glucose scanning reader (FREESTYLE DONTRELL 2 READER) - flash glucose sensor (FREESTYLE DONTRELL 14 DAY SENSOR) kit - sertraline (ZOLOFT) 50 mg tablet Take 1 tablet by mouth once daily. - vibegron (GEMTESA) 75 mg tablet Take 75 mg by mouth once daily. - furosemide (LASIX) 20 mg tablet Take 1 tablet by mouth once daily. As directed for leg swelling - TOVIAZ 4 mg Tb24 extended release tablet Take 4 mg by mouth once daily. For 30 days - multivitamin-folic acid-biotin (UZLY-YAHD-GEIAL, FX-BQ-ALLKFI,) 400-2,000 mcg tab Take by mouth. - collagen, bovine, 100 % powd Apply to affected area. - Cranberry-Vitamin C-Vitamin E (CRANBERRY PLUS VITAMIN C) 140-100 mg cap Patient takes Cranberry with Vitamin C capsule that contains 15,000 mg Cranberry and 100mg Vitamin C - Biotin 2,500 mcg cap Nurse reports patient taking 1500 mcg dose once daily (cannot find 1500mcg dose on menu) - Miscellaneous Medical Supply [facility] [employer] (E08.40, Z79.4) 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, (more content not included)... Normal [facility] A[facility] ([id number]) 1940 F Date Time Provider Department 12/15/24 ALICIA BLOUNT During your visit today, we recorded the following information about you: Mansi Preston LPN 12/15/2024 11:27 AM Signed Shani from [facility] Home Health calling with OT plan of care, one visit this week. She will call back with new plan next week. No need for return call. Isabella Emerson APRN.[employer] 12/15/2024 4:37 PM Signed Noted and agree. Allergies As of Date: 12/15/2024 Noted Allergy Reaction ADHESIVE TAPE (ROSINS) 08/31/2008 4 - Hives Comments: Rash around bandaid never been tested for latex allergy ASPIRIN 04/16/2018 15 - Contraindication-Medical [place]* Comments: GI bleed BONIVA (IBANDRONATE) 12/04/2008 8 - GI Upset Comments: Esophageal burning CARAFATE (SUCRALFATE) 04/24/2012 14 - Other: See Comments Comments: feels poorly CIPROFLOXACIN 12/01/2013 14 - Other: See Comments Comments: photosensitivity, dermatitis CODEINE 08/24/2005 8 - GI Upset IBUPROFEN 03/22/2006 8 - GI Upset IODINATED CONTRAST MEDIA 06/10/2023 11 - Vomiting IODINE 08/25/2008 11 - Vomiting LANSOPRAZOLE 11/01/2011 6 - Diarrhea MACROBID (NITROFURANTOIN MONOHYD/*11/22/2021 8 - GI Upset 10 - Anaphylaxis Comments: Headache, nausea, stomach pain METFORMIN 05/10/2011 6 - Diarrhea MICONAZOLE 12/29/2020 14 - Other: See Comments NEOSPORIN (DYDELIUP-VVSPTYYNLL-FK* 2 - Rash Comments: blisters PIOGLITAZONE 12/29/2020 16 - Unknown PROTONIX (PANTOPRAZOLE) 01/13/2010 6 - Diarrhea RELAFEN (NABUMETONE) 03/22/2006 8 - GI Upset 11 - Vomiting SHRIMP 12/21/2021 8 - GI Upset ACTOS (PIOGLITAZONE HCL) 12/03/2016 7 - Swelling Date Reviewed: 07/15/2024 Reviewed by: Edwige Reyes LPN - Fully Assessed Reason for Visit: OT plan of care [Other] Prescriptions as of 12/16/2024 - SEMGLEE,INSULIN GLARG-YFGN,PEN 100 unit/mL (3 mL) insulin pen Inject 30 Units subcutaneously every morning. - insulin 75/25 lispro protamine-lispro units/mL (HUMALOG MIX 75-25,U-100,INSULN) 100 units/mL suspension 10 units TID and a sliding scale s-- he will get 1 units for every 50 points she is over 200. - ondansetron (ZOFRAN) 4 mg tablet Take 1 tablet by mouth every 8 hours as needed for nausea/vomiting. - VENTOLIN HFA 90 mcg/actuation inhaler Inhale 2 Puffs as instructed every 4 hours as needed for wheezing/shortness of breath. - amoxicillin-clavulanate potassium (AUGMENTIN) 875-125 mg per tablet Take 1 tablet by mouth two times a day. - LORazepam (ATIVAN) 1 mg tablet Take 0.5-1 tablets by mouth once daily as needed for up to 90 days. Patient should start on June 05, 2024. - metoprolol succinate ER (TOPROL XL) 200 mg 24 hr tablet Take 1 tablet by mouth once daily. - Acidophilus-Bif Animalis 10 billion cell cap Take 1 capsule by mouth once daily. - gabapentin (NEURONTIN) 300 mg capsule Take 1 capsule by mouth two times a day for 180 days. Morning and bedtime - cyanocobalamin 1,000 mcg/mL Inject intramuscularly once every month. - rosuvastatin (CRESTOR) 10 mg tablet Take 1 tablet by mouth daily at bedtime. As directed - esomeprazole (NEXIUM) 40 mg capsule Take 1 capsule by mouth daily at 6 am. - insulin aspart U-100 (NOVOLOG FLEXPEN U-100 INSULIN) 100 unit/mL (3 mL) Inject 28 Units subcutaneously daily with breakfast AND 28 Units daily with lunch AND 28 Units daily with dinner. Adjust as directed. (Dr. Genny Munguia refjere) Also has SSI. - Insulin Rochelle, Disposable, (BD ULTRA-FINE FOZIA PEN NEEDLE) 32 gauge x 5/32 Use one needle for each dose, 4 times daily. 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 - Pyridoxine HCl 250 mg tablet DAILY - DULoxetine (CYMBALTA) 60 mg capsule Take 1 capsule by mouth daily at bedtime. - flash glucose scanning reader (FREESTYLE DONTRELL 2 READER) - flash glucose sensor (FREESTYLE DONTRELL 14 DAY SENSOR) kit - sertraline (ZOLOFT) 50 mg tablet Take 1 tablet by mouth once daily. - vibegron (GEMTESA) 75 mg tablet Take 75 mg by mouth once daily. - furosemide (LASIX) 20 mg tablet Take 1 tablet by mouth once daily. As directed for leg swelling - TOVIAZ 4 mg Tb24 extended release tablet Take 4 mg by mouth once daily. For 30 days - multivitamin-folic acid-biotin (CFNR-KEUE-QMVDM, GW-CJ-ZOBLJI,) 400-2,000 mcg tab Take by mouth. - collagen, bovine, 100 % powd Apply to affected area. - Cranberry-Vitamin C-Vitamin E (CRANBERRY PLUS VITAMIN C) 140-100 mg cap Patient takes Cranberry with Vitamin C capsule that contains 15,000 mg Cranberry and 100mg Vitamin C - Biotin 2,500 mcg cap Nurse reports patient taking 1500 mcg dose once daily (cannot find 1500mcg dose on menu) - Miscellaneous Medical Supply [facility] [employer] (E08.40, Z79.4) 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, with long-term current use of insulin (more content not included)... [facility] Report[facility] 2024 Office Visit Report Normal [facility] Ribs Uni Min 3V w/PA Cheston 12-15-2024 Ribs Uni Min 3V w/PA Chest Normal [facility] Scapulaon 12-15-2024 Scapula Normal [facility] Internal Medicine Office Vis iton 12-12-2024 Internal Medicine Office Visit Normal [facility] CNPReena 12-10-2024 CNPN Telephone (INTWS) ANA IVORY ([id number]) 1940 F Date Time Provider Department 12/10/24 ALICIA BLOUNT INTMWS During your visit today, we recorded the following information about you: Eris Keene, RN 12/10/2024 12:07 PM Signed Shani - OT- reports she was suppose to see pt today but pt cancelled due to a hair appt. Shani will see patient next week instead. Shani states she will go ahead and put the order in, and doesn't need a call back unless pcp disagrees. Isabella Emerson APRN.[employer] 12/10/2024 3:36 PM Signed Noted, agree. Allergies As of Date: 12/10/2024 Noted Allergy Reaction ADHESIVE TAPE (ROSINS) 08/31/2008 4 - Hives Comments: Rash around bandaid never been tested for latex allergy ASPIRIN 04/16/2018 15 - Contraindication-Medical [place]* Comments: GI bleed BONIVA (IBANDRONATE) 12/04/2008 8 - GI Upset Comments: Esophageal burning CARAFATE (SUCRALFATE) 04/24/2012 14 - Other: See Comments Comments: feels poorly CIPROFLOXACIN 12/01/2013 14 - Other: See Comments Comments: photosensitivity, dermatitis CODEINE 08/24/2005 8 - GI Upset IBUPROFEN 03/22/2006 8 - GI Upset IODINATED CONTRAST MEDIA 06/10/2023 11 - Vomiting IODINE 08/25/2008 11 - Vomiting LANSOPRAZOLE 11/01/2011 6 - Diarrhea MACROBID (NITROFURANTOIN MONOHYD/*11/22/2021 8 - GI Upset 10 - Anaphylaxis Comments: Headache, nausea, stomach pain METFORMIN 05/10/2011 6 - Diarrhea MICONAZOLE 12/29/2020 14 - Other: See Comments NEOSPORIN (MGAEMPBG-DSMMJIFIEY-FX* 2 - Rash Comments: blisters PIOGLITAZONE 12/29/2020 16 - Unknown PROTONIX (PANTOPRAZOLE) 01/13/2010 6 - Diarrhea RELAFEN (NABUMETONE) 03/22/2006 8 - GI Upset 11 - Vomiting SHRIMP 12/21/2021 8 - GI Upset ACTOS (PIOGLITAZONE HCL) 12/03/2016 7 - Swelling Date Reviewed: 07/15/2024 Reviewed by: Ewdige Reyes LPN - Fully Assessed Reason for Visit: Delay of care- OT [facility] [Other] Prescriptions as of 12/11/2024 - SEMGLEE,INSULIN GLARG-YFGN,PEN 100 unit/mL (3 mL) insulin pen Inject 30 Units subcutaneously every morning. - insulin 75/25 lispro protamine-lispro units/mL (HUMALOG MIX 75-25,U-100,INSULN) 100 units/mL suspension 10 units TID and a sliding scale s-- he will get 1 units for every 50 points she is over 200. - ondansetron (ZOFRAN) 4 mg tablet Take 1 tablet by mouth every 8 hours as needed for nausea/vomiting. - VENTOLIN HFA 90 mcg/actuation inhaler Inhale 2 Puffs as instructed every 4 hours as needed for wheezing/shortness of breath. - amoxicillin-clavulanate potassium (AUGMENTIN) 875-125 mg per tablet Take 1 tablet by mouth two times a day. - LORazepam (ATIVAN) 1 mg tablet Take 0.5-1 tablets by mouth once daily as needed for up to 90 days. Patient should start on June 05, 2024. - metoprolol succinate ER (TOPROL XL) 200 mg 24 hr tablet Take 1 tablet by mouth once daily. - Acidophilus-Bif Animalis 10 billion cell cap Take 1 capsule by mouth once daily. - gabapentin (NEURONTIN) 300 mg capsule Take 1 capsule by mouth two times a day for 180 days. Morning and bedtime - cyanocobalamin 1,000 mcg/mL Inject intramuscularly once every month. - rosuvastatin (CRESTOR) 10 mg tablet Take 1 tablet by mouth daily at bedtime. As directed - esomeprazole (NEXIUM) 40 mg capsule Take 1 capsule by mouth daily at 6 am. - insulin aspart U-100 (NOVOLOG FLEXPEN U-100 INSULIN) 100 unit/mL (3 mL) Inject 28 Units subcutaneously daily with breakfast AND 28 Units daily with lunch AND 28 Units daily with dinner. Adjust as directed. (Dr. Genny Munguia refjere) Also has SSI. - Insulin Rochelle, Disposable, (BD ULTRA-FINE FOZIA PEN NEEDLE) 32 gauge x 5/32 Use one needle for each dose, 4 times daily. 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 - Pyridoxine HCl 250 mg tablet DAILY - DULoxetine (CYMBALTA) 60 mg capsule Take 1 capsule by mouth daily at bedtime. - flash glucose scanning reader (FREESTYLE DONTRELL 2 READER) - flash glucose sensor (FREESTYLE DONTRELL 14 DAY SENSOR) kit - sertraline (ZOLOFT) 50 mg tablet Take 1 tablet by mouth once daily. - vibegron (GEMTESA) 75 mg tablet Take 75 mg by mouth once daily. - furosemide (LASIX) 20 mg tablet Take 1 tablet by mouth once daily. As directed for leg swelling - TOVIAZ 4 mg Tb24 extended release tablet Take 4 mg by mouth once daily. For 30 days - multivitamin-folic acid-biotin (EVHN-HFCU-MQXQD, KW-EJ-CRHCNJ,) 400-2,000 mcg tab Take by mouth. - collagen, bovine, 100 % powd Apply to affected area. - Cranberry-Vitamin C-Vitamin E (CRANBERRY PLUS VITAMIN C) 140-100 mg cap Patient takes Cranberry with Vitamin C capsule that contains 15,000 mg Cranberry and 100mg Vitamin C - Biotin 2,500 mcg cap Nurse reports patient taking 1500 mcg dose once daily (cannot find 1500mcg dose on menu) - Miscellaneous Medical Supply mis [employer] (E08.40, Z79.4) Diabetes mellitus (more content not included)... Normal [facility] Basic Metabolic Profile (BMP )on 12-08-2024 BUN/CRE 16.5 RATIO Normal 10-20 [facility] Comment on above: Performed By: #### L 500.2500, L100.0100 ####[facility] [address] [place], [address] Calcium [Mass/Vol] 10.1 mg/dL Normal 7.6-11.0 [facility] Comment on above: Performed By: #### L 500.2500, L100.0100 ####[facility] [address] [place], [address] Chloride [Moles/Vol] 106 mmol/L Normal 98-108 [facility] Comment on above: Performed By: #### L 500.2500, L100.0100 ####[facility] [address] [place], [address] CO2 [Moles/Vol] 21.2 mmol/L Normal 21.0-32.0 [facility] Comment on above: Performed By: #### L 500.2500, L100.0100 ####[facility] [address] [place], [address] Creatinine [Mass/Vol] 1.35 mg/dL High 0.70-1.20 [facility] Comment on above: Performed By: #### L 500.2500, L100.0100 ####[facility] [address] [place], [address] GAP 12 Normal 5-15 [facility] Comment on above: Performed By: #### L 500.2500, L100.0100 ####[facility] [address] [place], [address] GFR/1.73 sq M.predicted among non-blacks MDRD (S/P/Bld) [Vol rate/Area] 39 mL/min/{1.73_m2} Low >60 [facility] Comment on above: Result Comment: mL/m in/1.73m2 CKD-EPI Creatinine Equation (2020) Performed By: #### L 500.2500, L100.0100 ####[facility] [address] [place], [address] Glucose [Mass/Vol] 99 mg/dL Normal 70-99 [facility] Comment on above: Performed By: #### L 500.2500, L100.0100 ####[facility] [address] [place], [address] Potassium [Moles/Vol] 3.9 mmol/L Normal 3.3-5.1 [facility] Comment on above: Performed By: #### L 500.2500, L100.0100 ####[facility] [address] [place], [address] Sodium [Moles/Vol] 140 mmol/L Normal 133-145 [facility] Comment on above: Performed By: #### L 500.2500, L100.0100 ####[facility] [address] [place], [address] Urea nitrogen [Mass/Vol] 22 mg/dL High 4-19 [facility] Comment on above: Performed By: #### L 500.2500, L100.0100 ####[facility] [address] [place], [address] CBC W/Diff, Automatedon 11-12 Absolute Lymph 1.28 X10 3/uL Normal 0.83-4.51 [facility] Comment on above: Performed By: #### L 500.2500, L100.0100 ####[facility] [address] [place], [address] Absolute Neut 4.6 X10 3/uL Normal 2.0-7.7 [facility] Comment on above: Performed By: #### L 500.2500, L100.0100 ####[facility] [address] [place], [address] Basophils/100 WBC (Bld) 0.9 % Normal 0-1 [facility] Comment on above: Performed By: #### L 500.2500, L100.0100 ####[facility] [address] [place], [address] Eosinophils/100 WBC (Bld) 4.1 % Normal 0-5 [facility] Comment on above: Performed By: #### L 500.2500, L100.0100 ####[facility] [address] [place], [address] Erythrocyte distribution width (RBC) [Ratio] 12.8 % Normal 11.6-14.6 [facility] Comment on above: Performed By: #### L 500.2500, L100.0100 ####[facility] [address] [place], [address] Hematocrit (Bld) [Volume fraction] 37.9 % Normal 37-47 [facility] Comment on above: Performed By: #### L 500.2500, L100.0100 ####[facility] [address] [place], [address] Hemoglobin (Bld) [Mass/Vol] 12.5 g/dL Normal 12.0-15.0 [facility] Comment on above: Performed By: #### L 500.2500, L100.0100 ####[facility] [address] [place], [address] IG% 0.300 Normal 0.0-0.9 [facility] Comment on above: Result Comment: IG% - Immature Granulocytes (promyelocytes, myelocytes andmetamyelocytes) > 1% indicates that a LEFT SHIFT is Present. Performed By: #### L 500.2500, L100.0100 ####[facility] [address] [place], [address] Lymphocytes/100 WBC (Bld) 18.9 % Low 19-41 [facility] Comment on above: Performed By: #### L 500.2500, L100.0100 ####[facility] [address] [place], [address] MCH (RBC) [Entitic mass] 31.8 pg Normal 27.0-32.0 [facility] Comment on above: Performed By: #### L 500.2500, L100.0100 ####[facility] [address] [place], [address] MCHC (RBC) [Mass/Vol] 33.0 g/dL Normal 32-36 [facility] Comment on above: Performed By: #### L 500.2500, L100.0100 ####[facility] [address] [place], [address] MCV (RBC) [Entitic vol] 96.4 fL Normal 81-99 [facility] Comment on above: Performed By: #### L 500.2500, L100.0100 ####[facility] [address] [place], [address] Monocytes/100 WBC (Bld) 8.5 % Normal 0-10 [facility] Comment on above: Performed By: #### L 500.2500, L100.0100 ####[facility] [address] [place], [address] Neutrophils/100 WBC (Bld) 67.3 % Normal 47-70 [facility] Comment on above: Performed By: #### L 500.2500, L100.0100 ####[facility] [address] [place], [address] Nucleated RBC (Bld) [#/Vol] 0 10*3/uL Normal 0-5 [facility] Comment on above: Performed By: #### L 500.2500, L100.0100 ####[facility] [address] [place], [address] Platelet mean volume (Bld) [Entitic vol] 12.6 fL High 6.2-12.0 [facility] Comment on above: Performed By: #### L 500.2500, L100.0100 ####[facility] [address] [place], [address] Platelets (Bld) [#/Vol] 155 10*3/uL Normal 150-450 [facility] Comment on above: Performed By: #### L 500.2500, L100.0100 ####[facility] [address] [place], [address] RBC (Bld) [#/Vol] 3.93 10*6/uL Low 4.2-5.4 [facility] Comment on above: Performed By: #### L 500.2500, L100.0100 ####[facility] [address] [place], [address] RDW SD 46.1 fl High 35.1-43.9 [facility] Comment on above: Performed By: #### L 500.2500, L100.0100 ####[facility] [address] [place], [address] WBC (Bld) [#/Vol] 6.8 10*3/uL Normal 4.4-11.0 [facility] Comment on above: Performed By: #### L 500.2500, L100.0100 ####[facility] [address] [place], [address] CNPNon 11-19-[address] [facility] Telephone (INTMWS) ANA IVORY ([id number]) 1940 F Date Time Provider Department 11/19/24 ALICIA BLOUNT INTWS During your visit today, we recorded the following information about you: Coby Reynolds RN 11/19/2024 10:59 AM Signed Shani STEWART calling from [facility] to report plan of care for patient and occupational therapy will visit 2 times a week for 3 weeks. Patient has numbness and tingling on bilateral knees down to feet. Still can feel touch. Patient's Gabapentin was decreased by Dr. Pandya. Nurse Hardik is calling Dr. Pandya's office to let them know. Nurse is scheduled to see patient tomorrow. No Call back needed unless questions MANNY Murray Terri, APRN.SENIOR PATIENT ACCOUNT REPRESENTATIVE 11/20/2024 10:00 AM Signed Noted, [place] Allergies As of Date: 11/19/2024 Noted Allergy Reaction ADHESIVE TAPE (ROSINS) 08/31/2008 4 - Hives Comments: Rash around bandaid never been tested for latex allergy ASPIRIN 04/16/2018 15 - Contraindication-Medical [place]* Comments: GI bleed BONIVA (IBANDRONATE) 12/04/2008 8 - GI Upset Comments: Esophageal burning CARAFATE (SUCRALFATE) 04/24/2012 14 - Other: See Comments Comments: feels poorly CIPROFLOXACIN 12/01/2013 14 - Other: See Comments Comments: photosensitivity, dermatitis CODEINE 08/24/2005 8 - GI Upset IBUPROFEN 03/22/2006 8 - GI Upset IODINATED CONTRAST MEDIA 06/10/2023 11 - Vomiting IODINE 08/25/2008 11 - Vomiting LANSOPRAZOLE 11/01/2011 6 - Diarrhea MACROBID (NITROFURANTOIN MONOHYD/*11/22/2021 8 - GI Upset 10 - Anaphylaxis Comments: Headache, nausea, stomach pain METFORMIN 05/10/2011 6 - Diarrhea MICONAZOLE 12/29/2020 14 - Other: See Comments NEOSPORIN (GIVILRGX-QQZFJMPLTA-PE* 2 - Rash Comments: blisters PIOGLITAZONE 12/29/2020 16 - Unknown PROTONIX (PANTOPRAZOLE) 01/13/2010 6 - Diarrhea RELAFEN (NABUMETONE) 03/22/2006 8 - GI Upset 11 - Vomiting SHRIMP 12/21/2021 8 - GI Upset ACTOS (PIOGLITAZONE HCL) 12/03/2016 7 - Swelling Date Reviewed: 07/15/2024 Reviewed by: Edwige Reyes LPN - Fully Assessed Reason for Visit: Occupatioal Therapy Updated Plan of Care [Other] Prescriptions as of 11/20/2024 - SEMGLEE,INSULIN GLARG-YFGN,PEN 100 unit/mL (3 mL) insulin pen Inject 30 Units subcutaneously every morning. - insulin 75/25 lispro protamine-lispro units/mL (HUMALOG MIX 75-25,U-100,INSULN) 100 units/mL suspension 10 units TID and a sliding scale s-- he will get 1 units for every 50 points she is over 200. - ondansetron (ZOFRAN) 4 mg tablet Take 1 tablet by mouth every 8 hours as needed for nausea/vomiting. - VENTOLIN HFA 90 mcg/actuation inhaler Inhale 2 Puffs as instructed every 4 hours as needed for wheezing/shortness of breath. - amoxicillin-clavulanate potassium (AUGMENTIN) 875-125 mg per tablet Take 1 tablet by mouth two times a day. - LORazepam (ATIVAN) 1 mg tablet Take 0.5-1 tablets by mouth once daily as needed for up to 90 days. Patient should start on June 05, 2024. - metoprolol succinate ER (TOPROL XL) 200 mg 24 hr tablet Take 1 tablet by mouth once daily. - Acidophilus-Bif Animalis 10 billion cell cap Take 1 capsule by mouth once daily. - gabapentin (NEURONTIN) 300 mg capsule Take 1 capsule by mouth two times a day for 180 days. Morning and bedtime - cyanocobalamin 1,000 mcg/mL Inject intramuscularly once every month. - rosuvastatin (CRESTOR) 10 mg tablet Take 1 tablet by mouth daily at bedtime. As directed - esomeprazole (NEXIUM) 40 mg capsule Take 1 capsule by mouth daily at 6 am. - insulin aspart U-100 (NOVOLOG FLEXPEN U-100 INSULIN) 100 unit/mL (3 mL) Inject 28 Units subcutaneously daily with breakfast AND 28 Units daily with lunch AND 28 Units daily with dinner. Adjust as directed. (Dr. Genny Munguia refills) Also has SSI. - Insulin Rochelle, Disposable, (BD ULTRA-FINE FOZIA PEN NEEDLE) 32 gauge x 5/32 Use one needle for each dose, 4 times daily. 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 - Pyridoxine HCl 250 mg tablet DAILY - DULoxetine (CYMBALTA) 60 mg capsule Take 1 capsule by mouth daily at bedtime. - flash glucose scanning reader (FREESTYLE DONTRELL 2 READER) - flash glucose sensor (FREESTYLE DONTRELL 14 DAY SENSOR) kit - sertraline (ZOLOFT) 50 mg tablet Take 1 tablet by mouth once daily. - vibegron (GEMTESA) 75 mg tablet Take 75 mg by mouth once daily. - furosemide (LASIX) 20 mg tablet Take 1 tablet by mouth once daily. As directed for leg swelling - TOVIAZ 4 mg Tb24 extended release tablet Take 4 mg by mouth once daily. For 30 days - multivitamin-folic acid-biotin (ZZZW-DTJX-AODDI, UH-QG-DUGAPI,) 400-2,000 mcg tab Take by mouth. - collagen, bovine, 100 % powd Apply to affected area. - Cranberry-Vitamin C-Vitamin E (CRANBERRY PLUS VITAMIN C) 140-100 mg cap Patient takes Cranberry with Vitamin C capsule that contains 15,000 mg Cranberry and 100mg V (more content not included)... Normal [facility] Neurology Visit Reporton Neurology Visit Report Normal [facility] C-Peptideon 11-05-2024 C PEPTIDE 1.0 ng/mL Low 1.1-4.4 [facility] Comment on above: Result Comment: C-Pe ptide reference interval is for fasting patients.Performed at: [facility] [id number] Director: Marco Antonio Diaz PhD, Phone: [phone] Performed By: #### L 501.0100, L500.4100, L3100.7750 ####[facility] [address] [place], [address] Glucoseon 11-03-2024 Glucose [Mass/Vol] 151 mg/dL High 70-99 [facility] Comment on above: Performed By: #### L 501.0100, L500.4100, L3100.7750 ####[facility] [address] [place], [address] Lipid Profileon 11-03-2024 CHOL:HDL 3.54 Normal [facility] Comment on above: Performed By: #### L 501.0100, L500.4100, L3100.7750 ####[facility] [address] [place], [address] Cholesterol [Mass/Vol] 157 mg/dL Normal <=200 [facility] Comment on above: Result Comment: Chol esterol level, Desirable <200 mg/dLBorderline high cholesterol 200-239 mg/dLHigh cholesterol >=240 mg/dLRecommendations of the NCEP Adult Treatment Panel for thefollowing risk-cutoff thresholds for the [place] Americanpulation. Performed By: #### L 501.0100, L500.4100, L3100.7750 ####[facility] [address] [place], [address] Cholesterol in HDL [Mass/Vol] 44 mg/dL Normal [facility] Comment on above: Result Comment: Jayda onal Cholesterol Education Program (NCEP) guidelines:<40 mg/dL: Low HDL-cholesterol (major risk factor for CHD)>= 60 mg/dL: High HDL-cholesterol (negative risk factor forCHD)HDL-cholesterol is affected by a number of factors, e.g.smoking, exercise, hormones, sex and age. Performed By: #### L 501.0100, L500.4100, L3100.7750 ####[facility] [address] [place], [address] Cholesterol in LDL [Mass/Vol] 74 mg/dL Normal [facility] Comment on above: Result Comment: Bord vqqzgb=072-616 mg/dL Higher Vkmy=599 mg/dL or greater Performed By: #### L 501.0100, L500.4100, L3100.7750 ####[facility] [address] [place], [address] Cholesterol in VLDL [Mass/Vol] 39 mg/dL Normal 5-40 [facility] Comment on above: Performed By: #### L 501.0100, L500.4100, L3100.7750 ####[facility] [address] [place], [address] Triglyceride [Mass/Vol] 196 mg/dL Normal [facility] Comment on above: Result Comment: The drugs N-Acetylcysteine and Metamizole may falselydepress this assay.Normal range: <150 mg/dLBorderline High: 150-199 mg/dLHigh: 200-499 mg/dLVery High: >500 mg/dL Performed By: #### L 501.0100, L500.4100, L3100.7750 ####[facility] [address] [place], [address] Thyroid Stim Hormone (TSH)on 11-03-2024 TSH 3.160 uIU/mL Normal 0.300-4.20 0 [facility] Comment on above: Performed By: #### L 501.9520 ####[facility] [address] [place], [address] Internal Medicine Office Vis iton 11-02-2024 Internal Medicine Office Visit Normal [facility] Basic Metabolic Profile (BMP )on 10-27-2024 BUN Normal 7-18 [facility] Comment on above: Result Comment: Canc elled via OM: Order cancelled - Patient discharged Performed By: #### L 500.2500, L100.0100 ####[facility] [address] [place], [address] BUN/CRE Normal 10-20 [facility] Comment on above: Result Comment: Canc elled via OM: Order cancelled - Patient discharged Performed By: #### L 500.2500, L100.0100 ####[facility] [address] [place], [address] Calcium Normal 8.5-10.1 [facility] Comment on above: Result Comment: Canc elled via OM: Order cancelled - Patient discharged Performed By: #### L 500.2500, L100.0100 ####[facility] [address] [place], [address] CL Normal 98-107 [facility] Comment on above: Result Comment: Canc elled via OM: Order cancelled - Patient discharged Performed By: #### L 500.2500, L100.0100 ####[facility] [address] [place], [address] CO2 Normal 21.0-32.0 [facility] Comment on above: Result Comment: Canc elled via OM: Order cancelled - Patient discharged Performed By: #### L 500.2500, L100.0100 ####[facility] [address] [place], [address] CREAT,SERUM Normal 0.55-1.02 [facility] Comment on above: Result Comment: Canc elled via OM: Order cancelled - Patient discharged Performed By: #### L 500.2500, L100.0100 ####[facility] [address] [place], [address] eGFR Normal >60 [facility] Comment on above: Result Comment: Canc elled via OM: Order cancelled - Patient discharged Performed By: #### L 500.2500, L100.0100 ####[facility] [address] [place], [address] EST GFR - AA Normal >60 [facility] Comment on above: Result Comment: Canc elled via OM: Order cancelled - Patient discharged Performed By: #### L 500.2500, L100.0100 ####[facility] [address] [place], [address] GAP Normal 5-15 [facility] Comment on above: Result Comment: Canc elled via OM: Order cancelled - Patient discharged Performed By: #### L 500.2500, L100.0100 ####[facility] [address] [place], [address] GLU Normal 74-106 [facility] Comment on above: Result Comment: Canc elled via OM: Order cancelled - Patient discharged Performed By: #### L 500.2500, L100.0100 ####[facility] [address] [place], [address] Potassium Normal 3.5-5.1 [facility] Comment on above: Result Comment: Canc elled via OM: Order cancelled - Patient discharged Performed By: #### L 500.2500, L100.0100 ####[facility] [address] [place], [address] Basic Metabolic Profile (BMP) Normal 136-145 [facility] Comment on above: Result Comment: Canc elled via OM: Order cancelled - Patient discharged Performed By: #### L 500.2500, L100.0100 ####[facility] [address] [place], [address] CBC W/Diff, Automatedon - Absolute Neut Normal 2.0-7.7 [facility] Comment on above: Result Comment: Canc elled via OM: Order cancelled - Patient discharged Performed By: #### L 500.2500, L100.0100 ####[facility] [address] [place], [address] HCT Normal 37-47 [facility] Comment on above: Result Comment: Canc elled via OM: Order cancelled - Patient discharged Performed By: #### L 500.2500, L100.0100 ####[facility] [address] [place], [address] HGB Normal 12.0-15.0 [facility] Comment on above: Result Comment: Canc elled via OM: Order cancelled - Patient discharged Performed By: #### L 500.2500, L100.0100 ####[facility] [address] [place], [address] MCH Normal 27.0-32.0 [facility] Comment on above: Result Comment: Canc elled via OM: Order cancelled - Patient discharged Performed By: #### L 500.2500, L100.0100 ####[facility] [address] [place], [address] MCHC Normal 32-36 [facility] Comment on above: Result Comment: Canc elled via OM: Order cancelled - Patient discharged Performed By: #### L 500.2500, L100.0100 ####[facility] [address] [place], [address] MCV Normal 81-99 [facility] Comment on above: Result Comment: Canc elled via OM: Order cancelled - Patient discharged Performed By: #### L 500.2500, L100.0100 ####[facility] [address] [place], [address] NEUT% Normal 47-70 [facility] Comment on above: Result Comment: Canc elled via OM: Order cancelled - Patient discharged Performed By: #### L 500.2500, L100.0100 ####[facility] [address] [place], [address] PLT Normal 150-450 [facility] Comment on above: Result Comment: Canc elled via OM: Order cancelled - Patient discharged Performed By: #### L 500.2500, L100.0100 ####[facility] [address] [place], [address] RBC Normal 4.2-5.4 [facility] Comment on above: Result Comment: Canc elled via OM: Order cancelled - Patient discharged Performed By: #### L 500.2500, L100.0100 ####[facility] [address] [place], [address] RDW CV Normal 11.6-14.6 [facility] Comment on above: Result Comment: Canc elled via OM: Order cancelled - Patient discharged Performed By: #### L 500.2500, L100.0100 ####[facility] [address] [place], [address] RDW SD Normal 35.1-43.9 [facility] Comment on above: Result Comment: Canc elled via OM: Order cancelled - Patient discharged Performed By: #### L 500.2500, L100.0100 ####[facility] [address] [place], [address] WBC Normal 4.4-11.0 [facility] Comment on above: Result Comment: Canc elled via OM: Order cancelled - Patient discharged Performed By: #### L 500.2500, L100.0100 ####[facility] [address] 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 Daughter said she had not given her mother the macrobid rx for 4 days, she did not know she was to continue taking the medication. Nurse had called Dr biodiesel process control technician Sunday and was told patient to continue taking the macrobid rx. Daughter said she was not given the urine culture results from the hospital. Aware patient needs to schedule hospital follow up appt. Nurse was asking about if patient needs to have another urine test done? Please advise Alicia Blount MD 10/28/2024 8:32 PM Signed Looks like Dr. Forbes sent the RX for macrobid because patient complained of dysuria. It was added to the discharge summary (addendum) so was not part of the main part of the discharge summary. If she does not have any symptoms, can hold of on th antibiotic. Can check urine for UTI if develops concerning symptoms. Randi Felder LPN 10/29/2024 9:41 AM Signed Detailed message left for nurse Choi of below instructions. Allergies As of Date: 10/27/2024 Noted Allergy Reaction ADHESIVE TAPE (ROSINS) 08/31/2008 4 - Hives Comments: Rash around bandaid never been tested for latex allergy ASPIRIN 04/16/2018 15 - Contraindication-Medical [place]* Comments: GI bleed BONIVA (IBANDRONATE) 12/04/2008 8 - GI Upset Comments: Esophageal burning CARAFATE (SUCRALFATE) 04/24/2012 14 - Other: See Comments Comments: feels poorly CIPROFLOXACIN 12/01/2013 14 - Other: See Comments Comments: photosensitivity, dermatitis CODEINE 08/24/2005 8 - GI Upset IBUPROFEN 03/22/2006 8 - GI Upset IODINATED CONTRAST MEDIA 06/10/2023 11 - Vomiting IODINE 08/25/2008 11 - Vomiting LANSOPRAZOLE 11/01/2011 6 - Diarrhea MACROBID (NITROFURANTOIN MONOHYD/*11/22/2021 8 - GI Upset 10 - Anaphylaxis Comments: Headache, nausea, stomach pain METFORMIN 05/10/2011 6 - Diarrhea MICONAZOLE 12/29/2020 14 - Other: See Comments NEOSPORIN (DXUINZUK-KNPGBOJAIH-ZA* 2 - Rash Comments: blisters PIOGLITAZONE 12/29/2020 16 - Unknown PROTONIX (PANTOPRAZOLE) 01/13/2010 6 - Diarrhea RELAFEN (NABUMETONE) 03/22/2006 8 - GI Upset 11 - Vomiting SHRIMP 12/21/2021 8 - GI Upset ACTOS (PIOGLITAZONE HCL) 12/03/2016 7 - Swelling Date Reviewed: 07/15/2024 Reviewed by: Edwige Reyes LPN - Fully Assessed Reason for Visit: Medication Problem [65] Prescriptions as of 10/29/2024 - SEMGLEE,INSULIN GLARG-YFGN,PEN 100 unit/mL (3 mL) insulin pen Inject 30 Units subcutaneously every morning. - insulin 75/25 lispro protamine-lispro units/mL (HUMALOG MIX 75-25,U-100,INSULN) 100 units/mL suspension 10 units TID and a sliding scale s-- he will get 1 units for every 50 points she is over 200. - ondansetron (ZOFRAN) 4 mg tablet Take 1 tablet by mouth every 8 hours as needed for nausea/vomiting. - VENTOLIN HFA 90 mcg/actuation inhaler Inhale 2 Puffs as instructed every 4 hours as needed for wheezing/shortness of breath. - amoxicillin-clavulanate potassium (AUGMENTIN) 875-125 mg per tablet Take 1 tablet by mouth two times a day. - LORazepam (ATIVAN) 1 mg tablet Take 0.5-1 tablets by mouth once daily as needed for up to 90 days. Patient should start on June 05, 2024. - metoprolol succinate ER (TOPROL XL) 200 mg 24 hr tablet Take 1 tablet by mouth once daily. - Acidophilus-Bif Animalis 10 billion cell cap Take 1 capsule by mouth once daily. - gabapentin (NEURONTIN) 300 mg capsule Take 1 capsule by mouth two times a day for 180 days. Morning and bedtime - cyanocobalamin 1,000 mcg/mL Inject intramuscularly once every month. - rosuvastatin (CRESTOR) 10 mg tablet Take 1 tablet by mouth daily at bedtime. As directed - esomeprazole (NEXIUM) 40 mg capsule Take 1 capsule by mouth daily at 6 am. - insulin aspart U-100 (NOVOLOG FLEXPEN U-100 INSULIN) 100 unit/mL (3 mL) Inject 28 Units subcutaneously daily with breakfast AND 28 Units daily with lunch AND 28 Units daily with dinner. Adjust as directed. (Dr. Genny Munguia refills) Also has SSI. - Insulin Rochelle, Disposable, (BD ULTRA-FINE FOZIA PEN NEEDLE) 32 gauge x 32 Use one needle for each dose, 4 times daily. 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 - Pyridoxine HCl 250 mg tablet DAILY - DULoxetine (CYMBALTA) 60 mg capsule Take 1 capsule by mouth daily at bedtime. - flash glucose scanning reader (FREESTYLE DONTRELL 2 READER) - flash glucose sensor (FREESTYLE DONTRELL 14 DAY SENSOR) kit - sertraline (ZOLOFT) 50 mg tablet Take 1 tablet by mouth once daily. - vibegron (GEMTESA) 75 mg tablet Take 75 mg by mouth (more content not included)... [facility] ERIKHERIBERTO LOWEVINCENT Wheeler ([id number]) 1940 F Date Time Provider Department 10/27/24 ALICIA BLOUNT During your visit today, we recorded the following information about you: Eris Keene, RN 10/27/2024 1:28 PM Signed Shani- OT- [facility]- phoned with OT update POC: will see pt 2 x's week for 4 weeks for ADLs and IADLs and also reporting delay of care eval due to full schedule. No call back needed. Allergies As of Date: 10/27/2024 Noted Allergy Reaction ADHESIVE TAPE (ROSINS) 08/31/2008 4 - Hives Comments: Rash around bandaid never been tested for latex allergy ASPIRIN 04/16/2018 15 - Contraindication-Medical [place]* Comments: GI bleed BONIVA (IBANDRONATE) 12/04/2008 8 - GI Upset Comments: Esophageal burning CARAFATE (SUCRALFATE) 04/24/2012 14 - Other: See Comments Comments: feels poorly CIPROFLOXACIN 12/01/2013 14 - Other: See Comments Comments: photosensitivity, dermatitis CODEINE 08/24/2005 8 - GI Upset IBUPROFEN 03/22/2006 8 - GI Upset IODINATED CONTRAST MEDIA 06/10/2023 11 - Vomiting IODINE 08/25/2008 11 - Vomiting LANSOPRAZOLE 11/01/2011 6 - Diarrhea MACROBID (NITROFURANTOIN MONOHYD/*11/22/2021 8 - GI Upset 10 - Anaphylaxis Comments: Headache, nausea, stomach pain METFORMIN 05/10/2011 6 - Diarrhea MICONAZOLE 12/29/2020 14 - Other: See Comments NEOSPORIN ([id number]* 2 - Rash Comments: blisters PIOGLITAZONE 12/29/2020 16 - Unknown PROTONIX (PANTOPRAZOLE) 01/13/2010 6 - Diarrhea RELAFEN (NABUMETONE) 03/22/2006 8 - GI Upset 11 - Vomiting SHRIMP 12/21/2021 8 - GI Upset ACTOS (PIOGLITAZONE HCL) 12/03/2016 7 - Swelling Date Reviewed: 07/15/2024 Reviewed by: Edwige Reyes LPN - Fully Assessed Reason for Visit: [facility] OT updated POC [Other] Prescriptions as of 10/27/2024 - SEMGLEE,INSULIN GLARG-YFGN,PEN 100 unit/mL (3 mL) insulin pen Inject 30 Units subcutaneously every morning. - insulin 75/25 lispro protamine-lispro units/mL (HUMALOG MIX 75-25,U-100,INSULN) 100 units/mL suspension 10 units TID and a sliding scale s-- he will get 1 units for every 50 points she is over 200. - ondansetron (ZOFRAN) 4 mg tablet Take 1 tablet by mouth every 8 hours as needed for nausea/vomiting. - VENTOLIN HFA 90 mcg/actuation inhaler Inhale 2 Puffs as instructed every 4 hours as needed for wheezing/shortness of breath. - amoxicillin-clavulanate potassium (AUGMENTIN) 875-125 mg per tablet Take 1 tablet by mouth two times a day. - LORazepam (ATIVAN) 1 mg tablet Take 0.5-1 tablets by mouth once daily as needed for up to 90 days. Patient should start on June 05, 2024. - metoprolol succinate ER (TOPROL XL) 200 mg 24 hr tablet Take 1 tablet by mouth once daily. - Acidophilus-Bif Animalis 10 billion cell cap Take 1 capsule by mouth once daily. - gabapentin (NEURONTIN) 300 mg capsule Take 1 capsule by mouth two times a day for 180 days. Morning and bedtime - cyanocobalamin 1,000 mcg/mL Inject intramuscularly once every month. - rosuvastatin (CRESTOR) 10 mg tablet Take 1 tablet by mouth daily at bedtime. As directed - esomeprazole (NEXIUM) 40 mg capsule Take 1 capsule by mouth daily at 6 am. - insulin aspart U-100 (NOVOLOG FLEXPEN U-100 INSULIN) 100 unit/mL (3 mL) Inject 28 Units subcutaneously daily with breakfast AND 28 Units daily with lunch AND 28 Units daily with dinner. Adjust as directed. (Dr. Genny Munguia refjere) Also has SSI. - Insulin Rochelle, Disposable, (BD ULTRA-FINE FOZIA PEN NEEDLE) 32 gauge x 5/32 Use one needle for each dose, 4 times daily. 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 - Pyridoxine HCl 250 mg tablet DAILY - DULoxetine (CYMBALTA) 60 mg capsule Take 1 capsule by mouth daily at bedtime. - flash glucose scanning reader (FREESTYLE DONTRELL 2 READER) - flash glucose sensor (FREESTYLE DONTRELL 14 DAY SENSOR) kit - sertraline (ZOLOFT) 50 mg tablet Take 1 tablet by mouth once daily. - vibegron (GEMTESA) 75 mg tablet Take 75 mg by mouth once daily. - furosemide (LASIX) 20 mg tablet Take 1 tablet by mouth once daily. As directed for leg swelling - TOVIAZ 4 mg Tb24 extended release tablet Take 4 mg by mouth once daily. For 30 days - multivitamin-folic acid-biotin (XGCU-NJPM-KKXGF, XP-DA-GBLDYW,) 400-2,000 mcg tab Take by mouth. - collagen, bovine, 100 % powd Apply to affected area. 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 Normal [facility] [place] 10-25-[address] [facility] Telephone (FMIUNI) ANA IVORY ([id number]) 1940 F Date Time Provider Department 10/25/24 LIGIA SCHILLING IUNI During your visit today, we recorded the following information about you: Ligia Schilling, 10/25/2024 3:06 PM Signed Received call from [facility] nurse regarding patient. Pt was discharged from hospital on Sunday with UTI with prescription for macrobid (unsure of start date). Has not taken antibiotics in four days. Recommended that they complete course of antibiotics and if mother displays signs of AMS, dysuria, urinary frequency, etc then she should be seen in person. They will draw urine on Sunday during home health visit. Dr. Ligia Schilling, DO Allergies As of Date: 10/25/2024 Noted Allergy Reaction ADHESIVE TAPE (ROSINS) 08/31/2008 4 - Hives Comments: Rash around bandaid never been tested for latex allergy ASPIRIN 04/16/2018 15 - Contraindication-[facility] [place]* Comments: GI bleed BONIVA (IBANDRONATE) 12/04/2008 8 - GI Upset Comments: Esophageal burning CARAFATE (SUCRALFATE) 04/24/2012 14 - Other: See Comments Comments: feels poorly CIPROFLOXACIN 12/01/2013 14 - Other: See Comments Comments: photosensitivity, dermatitis CODEINE 08/24/2005 8 - GI Upset IBUPROFEN 03/22/2006 8 - GI Upset IODINATED CONTRAST MEDIA 06/10/2023 11 - Vomiting IODINE 08/25/2008 11 - Vomiting LANSOPRAZOLE 11/01/2011 6 - Diarrhea MACROBID (NITROFURANTOIN MONOHYD/*11/22/2021 8 - GI Upset 10 - Anaphylaxis Comments: Headache, nausea, stomach pain METFORMIN 05/10/2011 6 - Diarrhea MICONAZOLE 12/29/2020 14 - Other: See Comments NEOSPORIN ([id number]* 2 - Rash Comments: blisters PIOGLITAZONE 12/29/2020 16 - Unknown PROTONIX (PANTOPRAZOLE) 01/13/2010 6 - Diarrhea RELAFEN (NABUMETONE) 03/22/2006 8 - GI Upset 11 - Vomiting SHRIMP 12/21/2021 8 - GI Upset ACTOS (PIOGLITAZONE HCL) 12/03/2016 7 - Swelling Date Reviewed: 07/15/2024 Reviewed by: Edwige Reyes LPN - Fully Assessed Prescriptions as of 12/24/2024 - SEMGLEE,INSULIN GLARG-YFGN,PEN 100 unit/mL (3 mL) insulin pen Inject 30 Units subcutaneously every morning. - insulin 75/25 lispro protamine-lispro units/mL (HUMALOG MIX 75-25,U-100,INSULN) 100 units/mL suspension 10 units TID and a sliding scale s-- he will get 1 units for every 50 points she is over 200. - ondansetron (ZOFRAN) 4 mg tablet Take 1 tablet by mouth every 8 hours as needed for nausea/vomiting. - VENTOLIN HFA 90 mcg/actuation inhaler Inhale 2 Puffs as instructed every 4 hours as needed for wheezing/shortness of breath. - amoxicillin-clavulanate potassium (AUGMENTIN) 875-125 mg per tablet Take 1 tablet by mouth two times a day. - LORazepam (ATIVAN) 1 mg tablet Take 0.5-1 tablets by mouth once daily as needed for up to 90 days. Patient should start on June 05, 2024. - metoprolol succinate ER (TOPROL XL) 200 mg 24 hr tablet Take 1 tablet by mouth once daily. - Acidophilus-Bif Animalis 10 billion cell cap Take 1 capsule by mouth once daily. - gabapentin (NEURONTIN) 300 mg capsule Take 1 capsule by mouth two times a day for 180 days. Morning and bedtime - cyanocobalamin 1,000 mcg/mL Inject intramuscularly once every month. - rosuvastatin (CRESTOR) 10 mg tablet Take 1 tablet by mouth daily at bedtime. As directed - esomeprazole (NEXIUM) 40 mg capsule Take 1 capsule by mouth daily at 6 am. - insulin aspart U-100 (NOVOLOG FLEXPEN U-100 INSULIN) 100 unit/mL (3 mL) Inject 28 Units subcutaneously daily with breakfast AND 28 Units daily with lunch AND 28 Units daily with dinner. Adjust as directed. (Dr. Genny Munguia refills) Also has SSI. - Insulin Rochelle, Disposable, (BD ULTRA-FINE FOZIA PEN NEEDLE) 32 gauge x 5/32 Use one needle for each dose, 4 times daily. 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 - Pyridoxine HCl 250 mg tablet DAILY - DULoxetine (CYMBALTA) 60 mg capsule Take 1 capsule by mouth daily at bedtime. - flash glucose scanning reader (FREESTYLE DONTRELL 2 READER) - flash glucose sensor (FREESTYLE DONTRELL 14 DAY SENSOR) kit - sertraline (ZOLOFT) 50 mg tablet Take 1 tablet by mouth once daily. - vibegron (GEMTESA) 75 mg tablet Take 75 mg by mouth once daily. - furosemide (LASIX) 20 mg tablet Take 1 tablet by mouth once daily. As directed for leg swelling - TOVIAZ 4 mg Tb24 extended release tablet Take 4 mg by mouth once daily. For 30 days - multivitamin-folic acid-biotin (MKAC-UAVA-AOZKU, JV-VY-RDDRQB,) 400-2,000 mcg tab Take by mouth. - collagen, bovine, 100 % powd Apply to affected area. - Cranberry-Vitamin C-Vitamin E (CRANBERRY PLUS VITAMIN C) 140-100 mg cap Patient takes Cranberry with Vitamin C capsule that contains 15,000 mg Cranberry and 100mg Vitamin C - Biotin 2,500 mcg cap Nurse reports patient taking 1500 mcg dose once daily (cannot find 1500mcg (more content not included)... Normal [facility] 10-24-[address] [facility] Telephone (INTMWS) ANA IVORY ([id number]) 1940 F Date Time Provider Department 10/24/24 ALICIA BLOUNT INTWS During your visit today, we recorded the following information about you: Anne Rivera RN 10/24/2024 11:18 AM Signed Karina nurse with [facility] calls to let provider know that since patient has returned home from hospital she has not been taking baby aspirin 81 mg daily or Macrobid 100 mg twice daily x 4 days (patient did not realizes she had remaining 98 pills to take once she returned home). Karina asking if provider wants patient to take the baby aspirin and continue the 8 remaining doses of Macrobid? Karina requests call back at [phone]. Please review and advise, MANNY Griggs Liza D, MD 10/25/2024 8:24 AM Signed Baby aspirin is on the discharge summary from rehab unit. Macrodantin or Macrobid is on on the med list here. Also, not on discharge summary from rehab unit though UTI was noted on the summary. . I see Macrobdid was prescribed by Dr. Forbes, so she should take the antibioitic to treat the UTI. Clarify about the 98 pills to take -- Dr. Forbes only prescribed 14 pills Anne Rivera RN 10/27/2024 2:39 PM Signed The 98 pills should have said 8. I must have hit the 9 by accident as noted in the actual question: Karina asking if provider wants patient to take the baby aspirin and continue the 8 remaining doses of Macrobid? Message left for Karina with [facility] to notify that patient should be taking Baby Aspirin daily and finishing ATB. I am closing this encounter as now there are several others regarding same issue. Anne Rivera RN Allergies As of Date: 10/24/2024 Noted Allergy Reaction ADHESIVE TAPE (ROSINS) 08/31/2008 4 - Hives Comments: Rash around bandaid never been tested for latex allergy ASPIRIN 04/16/2018 15 - Contraindication-Medical [place]* Comments: GI bleed BONIVA (IBANDRONATE) 12/04/2008 8 - GI Upset Comments: Esophageal burning CARAFATE (SUCRALFATE) 04/24/2012 14 - Other: See Comments Comments: feels poorly CIPROFLOXACIN 12/01/2013 14 - Other: See Comments Comments: photosensitivity, dermatitis CODEINE 08/24/2005 8 - GI Upset IBUPROFEN 03/22/2006 8 - GI Upset IODINATED CONTRAST MEDIA 06/10/2023 11 - Vomiting IODINE 08/25/2008 11 - Vomiting LANSOPRAZOLE 11/01/2011 6 - Diarrhea MACROBID (NITROFURANTOIN MONOHYD/*11/22/2021 8 - GI Upset 10 - Anaphylaxis Comments: Headache, nausea, stomach pain METFORMIN 05/10/2011 6 - Diarrhea MICONAZOLE 12/29/2020 14 - Other: See Comments NEOSPORIN ([id number]* 2 - Rash Comments: blisters PIOGLITAZONE 12/29/2020 16 - Unknown PROTONIX (PANTOPRAZOLE) 01/13/2010 6 - Diarrhea RELAFEN (NABUMETONE) 03/22/2006 8 - GI Upset 11 - Vomiting SHRIMP 12/21/2021 8 - GI Upset ACTOS (PIOGLITAZONE HCL) 12/03/2016 7 - Swelling Date Reviewed: 07/15/2024 Reviewed by: Edwige Reyes LPN - Fully Assessed Reason for Visit: Patient Update [1234] Prescriptions as of 10/27/2024 - SEMGLEE,INSULIN GLARG-YFGN,PEN 100 unit/mL (3 mL) insulin pen Inject 30 Units subcutaneously every morning. - insulin 75/25 lispro protamine-lispro units/mL (HUMALOG MIX 75-25,U-100,INSULN) 100 units/mL suspension 10 units TID and a sliding scale s-- he will get 1 units for every 50 points she is over 200. - ondansetron (ZOFRAN) 4 mg tablet Take 1 tablet by mouth every 8 hours as needed for nausea/vomiting. - VENTOLIN HFA 90 mcg/actuation inhaler Inhale 2 Puffs as instructed every 4 hours as needed for wheezing/shortness of breath. - amoxicillin-clavulanate potassium (AUGMENTIN) 875-125 mg per tablet Take 1 tablet by mouth two times a day. - LORazepam (ATIVAN) 1 mg tablet Take 0.5-1 tablets by mouth once daily as needed for up to 90 days. Patient should start on June 05, 2024. - metoprolol succinate ER (TOPROL XL) 200 mg 24 hr tablet Take 1 tablet by mouth once daily. - Acidophilus-Bif Animalis 10 billion cell cap Take 1 capsule by mouth once daily. - gabapentin (NEURONTIN) 300 mg capsule Take 1 capsule by mouth two times a day for 180 days. Morning and bedtime - cyanocobalamin 1,000 mcg/mL Inject intramuscularly once every month. - rosuvastatin (CRESTOR) 10 mg tablet Take 1 tablet by mouth daily at bedtime. As directed - esomeprazole (NEXIUM) 40 mg capsule Take 1 capsule by mouth daily at 6 am. - insulin aspart U-100 (NOVOLOG FLEXPEN U-100 INSULIN) 100 unit/mL (3 mL) Inject 28 Units subcutaneously daily with breakfast AND 28 Units daily with lunch AND 28 Units daily with dinner. Adjust as directed. (Dr. Genny Munguia refjere) Also has SSI. - Insulin Rochelle, Disposable, (BD ULTRA-FINE FOZIA PEN NEEDLE) 32 gauge x 5/32 Use one needle for each dose, 4 times daily. 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 - Pyridoxine HC (more content not included)... [facility] ANA IVORY ([id number]) 1940 F Date Time Provider Department 10/23/24 ALICIA BLOUNT INTMWS During your visit today, we recorded the following information about you: Mansi Preston LPN 10/23/2024 4:22 PM Signed Rhina from [facility] Home Health calling she has completed patient ST eval and plan to work on swallowing therapy, 2 visits weekly for 2 weeks. No need to return call. Isabella Emerson APRN.[employer] 10/24/2024 7:23 AM Signed Noted. Allergies As of Date: 10/23/2024 Noted Allergy Reaction ADHESIVE TAPE (ROSINS) 08/31/2008 4 - Hives Comments: Rash around bandaid never been tested for latex allergy ASPIRIN 04/16/2018 15 - Contraindication-Medical [place]* Comments: GI bleed BONIVA (IBANDRONATE) 12/04/2008 8 - GI Upset Comments: Esophageal burning CARAFATE (SUCRALFATE) 04/24/2012 14 - Other: See Comments Comments: feels poorly CIPROFLOXACIN 12/01/2013 14 - Other: See Comments Comments: photosensitivity, dermatitis CODEINE 08/24/2005 8 - GI Upset IBUPROFEN 03/22/2006 8 - GI Upset IODINATED CONTRAST MEDIA 06/10/2023 11 - Vomiting IODINE 08/25/2008 11 - Vomiting LANSOPRAZOLE 11/01/2011 6 - Diarrhea MACROBID (NITROFURANTOIN MONOHYD/*11/22/2021 8 - GI Upset 10 - Anaphylaxis Comments: Headache, nausea, stomach pain METFORMIN 05/10/2011 6 - Diarrhea MICONAZOLE 12/29/2020 14 - Other: See Comments NEOSPORIN ([id number]* 2 - Rash Comments: blisters PIOGLITAZONE 12/29/2020 16 - Unknown PROTONIX (PANTOPRAZOLE) 01/13/2010 6 - Diarrhea RELAFEN (NABUMETONE) 03/22/2006 8 - GI Upset 11 - Vomiting SHRIMP 12/21/2021 8 - GI Upset ACTOS (PIOGLITAZONE HCL) 12/03/2016 7 - Swelling Date Reviewed: 07/15/2024 Reviewed by: Edwige Reyes LPN - Fully Assessed Reason for Visit: plan of care [Other] Prescriptions as of 10/28/2024 - SEMGLEE,INSULIN GLARG-YFGN,PEN 100 unit/mL (3 mL) insulin pen Inject 30 Units subcutaneously every morning. - insulin 75/25 lispro protamine-lispro units/mL (HUMALOG MIX 75-25,U-100,INSULN) 100 units/mL suspension 10 units TID and a sliding scale s-- he will get 1 units for every 50 points she is over 200. - ondansetron (ZOFRAN) 4 mg tablet Take 1 tablet by mouth every 8 hours as needed for nausea/vomiting. - VENTOLIN HFA 90 mcg/actuation inhaler Inhale 2 Puffs as instructed every 4 hours as needed for wheezing/shortness of breath. - amoxicillin-clavulanate potassium (AUGMENTIN) 875-125 mg per tablet Take 1 tablet by mouth two times a day. - LORazepam (ATIVAN) 1 mg tablet Take 0.5-1 tablets by mouth once daily as needed for up to 90 days. Patient should start on June 05, 2024. - metoprolol succinate ER (TOPROL XL) 200 mg 24 hr tablet Take 1 tablet by mouth once daily. - Acidophilus-Bif Animalis 10 billion cell cap Take 1 capsule by mouth once daily. - gabapentin (NEURONTIN) 300 mg capsule Take 1 capsule by mouth two times a day for 180 days. Morning and bedtime - cyanocobalamin 1,000 mcg/mL Inject intramuscularly once every month. - rosuvastatin (CRESTOR) 10 mg tablet Take 1 tablet by mouth daily at bedtime. As directed - esomeprazole (NEXIUM) 40 mg capsule Take 1 capsule by mouth daily at 6 am. - insulin aspart U-100 (NOVOLOG FLEXPEN U-100 INSULIN) 100 unit/mL (3 mL) Inject 28 Units subcutaneously daily with breakfast AND 28 Units daily with lunch AND 28 Units daily with dinner. Adjust as directed. (Dr. Genny Munguia refjere) Also has SSI. - Insulin Rochelle, Disposable, (BD ULTRA-FINE FOZIA PEN NEEDLE) 32 gauge x 5/32 Use one needle for each dose, 4 times daily. 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 - Pyridoxine HCl 250 mg tablet DAILY - DULoxetine (CYMBALTA) 60 mg capsule Take 1 capsule by mouth daily at bedtime. - flash glucose scanning reader (FREESTYLE DONTRELL 2 READER) - flash glucose sensor (FREESTYLE DONTRELL 14 DAY SENSOR) kit - sertraline (ZOLOFT) 50 mg tablet Take 1 tablet by mouth once daily. - vibegron (GEMTESA) 75 mg tablet Take 75 mg by mouth once daily. - furosemide (LASIX) 20 mg tablet Take 1 tablet by mouth once daily. As directed for leg swelling - TOVIAZ 4 mg Tb24 extended release tablet Take 4 mg by mouth once daily. For 30 days - multivitamin-folic acid-biotin (YDUS-ACPI-BPIUJ, SZ-OG-YHUCNC,) 400-2,000 mcg tab Take by mouth. - collagen, bovine, 100 % powd Apply to affected area. - Cranberry-Vitamin C-Vitamin E (CRANBERRY PLUS VITAMIN C) 140-100 mg cap Patient takes Cranberry with Vitamin C capsule that contains 15,000 mg Cranberry and 100mg Vitamin C - Biotin 2,500 mcg cap Nurse reports patient taking 1500 mcg dose once daily (cannot find 1500mcg dose on menu) - Miscellaneous Medical Supply [employer] (E08.40, Z79.4) 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, with long-term current use of (more content not included)... Normal [facility] Basic Metabolic Profile (BMP )on 10-20-2024 BUN Normal -18 [facility] Comment on above: Result Comment: Canc elled via OM: Order cancelled - Patient discharged Performed By: #### L 100.0100, L500.2500 ####[facility] [address] [place], [address] BUN/CRE Normal 10-20 [facility] Comment on above: Result Comment: Canc elled via OM: Order cancelled - Patient discharged Performed By: #### L 100.0100, L500.2500 ####[facility] [address] [place], [address] Calcium Normal 8.5-10.1 [facility] Comment on above: Result Comment: Canc elled via OM: Order cancelled - Patient discharged Performed By: #### L 100.0100, L500.2500 ####[facility] [address] [place], [address] CL Normal 98-107 [facility] Comment on above: Result Comment: Canc elled via OM: Order cancelled - Patient discharged Performed By: #### L 100.0100, L500.2500 ####[facility] [address] [place], [address] CO2 Normal 21.0-32.0 [facility] Comment on above: Result Comment: Canc elled via OM: Order cancelled - Patient discharged Performed By: #### L 100.0100, L500.2500 ####[facility] [address] [place], [address] CREAT,SERUM Normal 0.55-1.02 [facility] Comment on above: Result Comment: Canc elled via OM: Order cancelled - Patient discharged Performed By: #### L 100.0100, L500.2500 ####[facility] [address] [place], [address] eGFR Normal >60 [facility] Comment on above: Result Comment: Canc elled via OM: Order cancelled - Patient discharged Performed By: #### L 100.0100, L500.2500 ####[facility] [address] [place], [address] EST GFR - AA Normal >60 [facility] Comment on above: Result Comment: Canc elled via OM: Order cancelled - Patient discharged Performed By: #### L 100.0100, L500.2500 ####[facility] [address] [place], [address] GAP Normal 5-15 [facility] Comment on above: Result Comment: Canc elled via OM: Order cancelled - Patient discharged Performed By: #### L 100.0100, L500.2500 ####[facility] [address] [place], [address] GLU Normal 74-106 [facility] Comment on above: Result Comment: Canc elled via OM: Order cancelled - Patient discharged Performed By: #### L 100.0100, L500.2500 ####[facility] [address] [place], [address] Potassium Normal 3.5-5.1 [facility] Comment on above: Result Comment: Canc elled via OM: Order cancelled - Patient discharged Performed By: #### L 100.0100, L500.2500 ####[facility] [address] [place], [address] Basic Metabolic Profile (BMP) Normal 136-145 [facility] Comment on above: Result Comment: Canc elled via OM: Order cancelled - Patient discharged Performed By: #### L 100.0100, L500.2500 ####[facility] [address] [place], [address] CBC W/Diff, Automatedon 03- 0-2024 Absolute Neut Normal 2.0-7.7 [facility] Comment on above: Result Comment: Canc elled via OM: Order cancelled - Patient discharged Performed By: #### L 100.0100, L500.2500 ####[facility] [address] [place], [address] HCT Normal 37-47 [facility] Comment on above: Result Comment: Canc elled via OM: Order cancelled - Patient discharged Performed By: #### L 100.0100, L500.2500 ####[facility] [address] [place], [address] HGB Normal 12.0-15.0 [facility] Comment on above: Result Comment: Canc elled via OM: Order cancelled - Patient discharged Performed By: #### L 100.0100, L500.2500 ####[facility] [address] [place], [address] MCH Normal 27.0-32.0 [facility] Comment on above: Result Comment: Canc elled via OM: Order cancelled - Patient discharged Performed By: #### L 100.0100, L500.2500 ####[facility] [address] [place], [address] MCHC Normal 32-36 [facility] Comment on above: Result Comment: Canc elled via OM: Order cancelled - Patient discharged Performed By: #### L 100.0100, L500.2500 ####[facility] [address] [place], [address] MCV Normal 81-99 [facility] Comment on above: Result Comment: Canc elled via OM: Order cancelled - Patient discharged Performed By: #### L 100.0100, L500.2500 ####[facility] [address] [place], [address] NEUT% Normal 47-70 [facility] Comment on above: Result Comment: Canc elled via OM: Order cancelled - Patient discharged Performed By: #### L 100.0100, L500.2500 ####[facility] [address] [place], [address] PLT Normal 150-450 [facility] Comment on above: Result Comment: Canc elled via OM: Order cancelled - Patient discharged Performed By: #### L 100.0100, L500.2500 ####[facility] [address] [place], [address] RBC Normal 4.2-5.4 [facility] Comment on above: Result Comment: Canc elled via OM: Order cancelled - Patient discharged Performed By: #### L 100.0100, L500.2500 ####[facility] [address] [place], [address] RDW CV Normal 11.6-14.6 [facility] Comment on above: Result Comment: Canc elled via OM: Order cancelled - Patient discharged Performed By: #### L 100.0100, L500.2500 ####[facility] [address] [place], [address] RDW SD Normal 35.1-43.9 [facility] Comment on above: Result Comment: Canc elled via OM: Order cancelled - Patient discharged Performed By: #### L 100.0100, L500.2500 ####[facility] [address] [place], [address] WBC Normal 4.4-11.0 [facility] Comment on above: Result Comment: Canc elled via OM: Order cancelled - Patient discharged Performed By: #### L 100.0100, L500.2500 ####[facility] [address] [place], [address] CNPNon 10-20-[address] [facility] Telephone (INTMWS) ANA IVORY ([id number]) 1940 F Date Time Provider Department 10/20/24 ALICIA BLOUNT INTWS During your visit today, we recorded the following information about you: Judith Renteria RN 10/20/2024 4:02 PM Signed Hardik [facility] POC on Pt and reports they will be seeing Pt twice a week for 1 week and once a week for 3 weeks. He has an FYI on medication reconciliation on Pts insulins. He states Pt saw Dr Munguia this morning and she changed the Pts insulins from what Dr Forbes had them on TCU. Pt will be on Lispro 10 units TID and a sliding scale she will get 1 units for every 50 points she is over 200. The Insuline Gargalin was changed from 35 units BID to 30 units daily in the morning. He states there were drug to drug interactions between the Metoprolol and Clonidine. It said there was a duplicate drug with the Gabapentin and Clonazepam. Then he states 2 drug allergies with her having a drug allergy to Nabumetone and Ibuprofen, it says the Pt shouldn't be taking the Asprin 81 mg. Alicia Blount MD 10/21/2024 1:33 PM Addendum Patient has intolerance to ibuprofen, not allergy, so okay to take aspirin as indicated. Since she is on 2 BP meds, there will be interaction. Okay to take as long as no issues with hypotension. Not sure about the duplicate issue with gabapentin and clonazepam since different type of meds but okay to take as long as no adverse interactions noted clinically. Noted insulin changes per Dr. Genny Munguia (endo) Updated med list Juana Muro LPN 10/21/2024 1:54 PM Signed Below response left on identified vm. Juana Muro LPN Allergies As of Date: 10/20/2024 Noted Allergy Reaction ADHESIVE TAPE (ROSINS) 08/31/2008 4 - Hives Comments: Rash around bandaid never been tested for latex allergy ASPIRIN 04/16/2018 15 - Contraindication-Medical [place]* Comments: GI bleed BONIVA (IBANDRONATE) 12/04/2008 8 - GI Upset Comments: Esophageal burning CARAFATE (SUCRALFATE) 04/24/2012 14 - Other: See Comments Comments: feels poorly CIPROFLOXACIN 12/01/2013 14 - Other: See Comments Comments: photosensitivity, dermatitis CODEINE 08/24/2005 8 - GI Upset IBUPROFEN 03/22/2006 8 - GI Upset IODINATED CONTRAST MEDIA 06/10/2023 11 - Vomiting IODINE 08/25/2008 11 - Vomiting LANSOPRAZOLE 11/01/2011 6 - Diarrhea MACROBID (NITROFURANTOIN MONOHYD/*11/22/2021 8 - GI Upset 10 - Anaphylaxis Comments: Headache, nausea, stomach pain METFORMIN 05/10/2011 6 - Diarrhea MICONAZOLE 12/29/2020 14 - Other: See Comments NEOSPORIN ([id number]-[id number]* 2 - Rash Comments: blisters PIOGLITAZONE 12/29/2020 16 - Unknown PROTONIX (PANTOPRAZOLE) 01/13/2010 6 - Diarrhea RELAFEN (NABUMETONE) 03/22/2006 8 - GI Upset 11 - Vomiting SHRIMP 12/21/2021 8 - GI Upset ACTOS (PIOGLITAZONE HCL) 12/03/2016 7 - Swelling Date Reviewed: 07/15/2024 Reviewed by: Edwige Reyes LPN - Fully Assessed Reason for Visit: Home Health Point of Care Results [7092] Order(s):insulin 75/25 lispro protamine-lispro units/mL (HUMALOG MIX 75-25,U-100,INSULN) 100 units/mL [id number] units TID and a sliding scale s-- he will get 1 units for every 50 points she is over 200.Disp: Rfl: Prescriptions as of 10/21/2024 - SEMGLEE,INSULIN GLARG-YFGN,PEN 100 unit/mL (3 mL) insulin pen Inject 30 Units subcutaneously every morning. - insulin 75/25 lispro protamine-lispro units/mL (HUMALOG MIX 75-25,U-100,INSULN) 100 units/mL suspension 10 units TID and a sliding scale s-- he will get 1 units for every 50 points she is over 200. - ondansetron (ZOFRAN) 4 mg tablet Take 1 tablet by mouth every 8 hours as needed for nausea/vomiting. - VENTOLIN HFA 90 mcg/actuation inhaler Inhale 2 Puffs as instructed every 4 hours as needed for wheezing/shortness of breath. - amoxicillin-clavulanate potassium (AUGMENTIN) 875-125 mg per tablet Take 1 tablet by mouth two times a day. - LORazepam (ATIVAN) 1 mg tablet Take 0.5-1 tablets by mouth once daily as needed for up to 90 days. Patient should start on June 05, 2024. - metoprolol succinate ER (TOPROL XL) 200 mg 24 hr tablet Take 1 tablet by mouth once daily. - Acidophilus-Bif Animalis 10 billion cell cap Take 1 capsule by mouth once daily. - gabapentin (NEURONTIN) 300 mg capsule Take 1 capsule by mouth two times a day for 180 days. Morning and bedtime - cyanocobalamin 1,000 mcg/mL Inject intramuscularly once every month. - rosuvastatin (CRESTOR) 10 mg tablet Take 1 tablet by mouth daily at bedtime. As directed - cephALEXin (KEFLEX) 250 mg capsule Take 250 mg by mouth daily at bedtime. - esomeprazole (NEXIUM) 40 mg capsule Take 1 capsule by mouth daily at 6 am. - insulin aspart U-100 (NOVOLOG FLEXPEN U-100 INSULIN) 100 unit/mL (3 mL) Inject 28 Units subcutaneously daily with breakfast AND 28 Units daily with lunch AND 28 Units daily (more content not included)... Normal [facility] Endocrinology Visit Reporton 10-20-2024 Endocrinology Visit Report Normal [facility] Urine Cultureon 10-19-2024 U[facility] Yeast, not Shanna a lbicans [place] Count 50,000-80,000 Normal [facility] Comment on above: Performed By: #### L 400.0001, M100.2200 ####[facility] [address] [place], [place], [address] Bedside Glucoseon 10-17-2024 FINGERSTICK GLU 380 mg/dL High 74-106 [facility] Comment on above: Result Comment: OLGA GEMENT OF PATIENT CARE PER NURSING PROTOCOL Performed By: #### L 501.080 ####[facility] [address] [place], [address] FINGERSTICK GLU 178 mg/dL High 74-106 [facility] Comment on above: Result Comment: OGLA GEMENT OF PATIENT CARE PER NURSING PROTOCOL Performed By: #### L 501.080 ####[facility] [address] [place], [address] Corry 10-17-[address] [facility] Telephone (INTMWS) ANA IVORY ([id number]) 1940 F Date Time Provider Department 10/17/24 ALICIA BLOUNT INTMWS During your visit today, we recorded the following information about you: Judith Renteria RN 10/17/2024 2:59 PM Signed [facility] called in and reports Pt was D/Chuck from TCU today for a stroke on 08/30. Pt was discharged with PT/OT/SN/SW/ST. She was asking if provider would be willing to follow. Please call and advise. Isabella Emerson APRN.NEMESIO 10/17/2024 3:50 PM Signed Please call and let them know that yes, we will follow. Thanks. Isabella Emerson APRN.Judith Haddad, MANNY 10/17/2024 4:01 PM Signed Called and left a detailed voicemail notifying [facility] of providers message. Clinic phone number was left in case they had any questions. Judith Renteria RN Allergies As of Date: 10/17/2024 Noted Allergy Reaction ADHESIVE TAPE (ROSINS) 08/31/2008 4 - Hives Comments: Rash around bandaid never been tested for latex allergy ASPIRIN 04/16/2018 15 - Contraindication-Medical [place]* Comments: GI bleed BONIVA (IBANDRONATE) 12/04/2008 8 - GI Upset Comments: Esophageal burning CARAFATE (SUCRALFATE) 04/24/2012 14 - Other: See Comments Comments: feels poorly CIPROFLOXACIN 12/01/2013 14 - Other: See Comments Comments: photosensitivity, dermatitis CODEINE 08/24/2005 8 - GI Upset IBUPROFEN 03/22/2006 8 - GI Upset IODINATED CONTRAST MEDIA 06/10/2023 11 - Vomiting IODINE 08/25/2008 11 - Vomiting LANSOPRAZOLE 11/01/2011 6 - Diarrhea MACROBID (NITROFURANTOIN MONOHYD/*11/22/2021 8 - GI Upset 10 - Anaphylaxis Comments: Headache, nausea, stomach pain METFORMIN 05/10/2011 6 - Diarrhea MICONAZOLE 12/29/2020 14 - Other: See Comments NEOSPORIN (LQXKLFLI-FMKAPLQWOT-LY* 2 - Rash Comments: blisters PIOGLITAZONE 12/29/2020 16 - Unknown PROTONIX (PANTOPRAZOLE) 01/13/2010 6 - Diarrhea RELAFEN (NABUMETONE) 03/22/2006 8 - GI Upset 11 - Vomiting SHRIMP 12/21/2021 8 - GI Upset ACTOS (PIOGLITAZONE HCL) 12/03/2016 7 - Swelling Date Reviewed: 07/15/2024 Reviewed by: Edwige Reyes LPN - Fully Assessed Reason for Visit: Follow HH [Other] Prescriptions as of 10/17/2024 - ondansetron (ZOFRAN) 4 mg tablet Take 1 tablet by mouth every 8 hours as needed for nausea/vomiting. - VENTOLIN HFA 90 mcg/actuation inhaler Inhale 2 Puffs as instructed every 4 hours as needed for wheezing/shortness of breath. - amoxicillin-clavulanate potassium (AUGMENTIN) 875-125 mg per tablet Take 1 tablet by mouth two times a day. - LORazepam (ATIVAN) 1 mg tablet Take 0.5-1 tablets by mouth once daily as needed for up to 90 days. Patient should start on June 05, 2024. - metoprolol succinate ER (TOPROL XL) 200 mg 24 hr tablet Take 1 tablet by mouth once daily. - Acidophilus-Bif Animalis 10 billion cell cap Take 1 capsule by mouth once daily. - gabapentin (NEURONTIN) 300 mg capsule Take 1 capsule by mouth two times a day for 180 days. Morning and bedtime - cyanocobalamin 1,000 mcg/mL Inject intramuscularly once every month. - rosuvastatin (CRESTOR) 10 mg tablet Take 1 tablet by mouth daily at bedtime. As directed - cephALEXin (KEFLEX) 250 mg capsule Take 250 mg by mouth daily at bedtime. - esomeprazole (NEXIUM) 40 mg capsule Take 1 capsule by mouth daily at 6 am. - insulin aspart U-100 (NOVOLOG FLEXPEN U-100 INSULIN) 100 unit/mL (3 mL) Inject 28 Units subcutaneously daily with breakfast AND 28 Units daily with lunch AND 28 Units daily with dinner. Adjust as directed. (Dr. Genny funes) Also has SSI. - insulin glargine (LANTUS SOLOSTAR U-100 INSULIN) 100 unit/mL (3 mL) Inject 20 Units subcutaneously daily at bedtime. (Dr. Genny funes) - Insulin Rochelle, Disposable, (BD ULTRA-FINE FOZIA PEN NEEDLE) 32 gauge x 5/32 Use one needle for each dose, 4 times daily. 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 - Pyridoxine HCl 250 mg tablet DAILY - DULoxetine (CYMBALTA) 60 mg capsule Take 1 capsule by mouth daily at bedtime. - flash glucose scanning reader (FREESTYLE DONTRELL 2 READER) - flash glucose sensor (FREESTYLE DONTRELL 14 DAY SENSOR) kit - sertraline (ZOLOFT) 50 mg tablet Take 1 tablet by mouth once daily. - vibegron (GEMTESA) 75 mg tablet Take 75 mg by mouth once daily. - furosemide (LASIX) 20 mg tablet Take 1 tablet by mouth once daily. As directed for leg swelling - TOVIAZ 4 mg Tb24 extended release tablet Take 4 mg by mouth once daily. For 30 days - multivitamin-folic acid-biotin (KYAP-TRVM-IOBGG, VJ-YT-XMXYNO,) 400-2,000 mcg tab Take by mouth. - collagen, bovine, 100 % powd Apply to affected area. - Cranberry-Vitamin C-Vitamin E (CRANBERRY PLUS VITAMIN C) 140-100 mg cap Patient takes Cranberry with Vitamin C capsule that contains 15,000 mg Cranberry and 100mg Vitamin C - Biotin 2,500 mcg cap Nurse reports patient taking 150 (more content not included)... Normal [facility] Urinalysis, Completeon 10-17 AMORPHOUS 1+ URATE Normal [facility] Comment on above: Order Comment: KEYANA TER SPECIMEN Performed By: #### L 400.0001, M100.2200 ####[facility] [address] [place], [address] BACTERIA 2+ /hpf Normal None Seen [facility] Comment on above: Order Comment: KEYANA TER SPECIMEN Performed By: #### L 400.0001, M100.0 ####[facility] [address] [place], [address] EPI,SQUAMOUS 0-5 SEEN Normal 5-10 [facility] Comment on above: Order Comment: KEYANA TER SPECIMEN Performed By: #### L 400.0001, M100.2199 ####[facility] [address] [place], [address] RBC 0-5 SEEN Normal 0-5 [facility] Comment on above: Order Comment: KEYANA TER SPECIMEN Performed By: #### L 400.0001, M1.0 ####[facility] [address] [place], [address] WBC 50-100 SEEN Normal 0-5 [facility] Comment on above: Order Comment: KEYANA TER SPECIMEN Performed By: #### L 400.0001, .2199 ####[facility] [address] [place], [address] Bedside Glucoseon 10-16-2024 FINGERSTICK GLU 306 mg/dL High 74-106 [facility] Comment on above: Result Comment: OLGA GEMENT OF PATIENT CARE PER NURSING PROTOCOL Performed By: #### L 501.080 ####[facility] [address] [place], [address] FINGERSTICK GLU 243 mg/dL High 74-106 [facility] Comment on above: Result Comment: OLGA GEMENT OF PATIENT CARE PER NURSING PROTOCOL Performed By: #### L 501.080 ####[facility] [address] [place], [address] FINGERSTICK GLU 373 mg/dL High 74-106 [facility] Comment on above: Result Comment: OLGA GEMENT OF PATIENT CARE PER NURSING PROTOCOL Performed By: #### L 501.080 ####[facility] [address] [place], [address] FINGERSTICK GLU 102 mg/dL Normal 74-106 [facility] Comment on above: Result Comment: OLGA GEMENT OF PATIENT CARE PER NURSING PROTOCOL Performed By: #### L 501.080 ####[facility] [address] [place], [address] FINGERSTICK GLU 83 mg/dL Normal 74-106 [facility] Comment on above: Result Comment: OLGA GEMENT OF PATIENT CARE PER NURSING PROTOCOL Performed By: #### L 501.080 ####[facility] [address] [place], [address] FINGERSTICK GLU 155 mg/dL High 74-106 [facility] Comment on above: Result Comment: OLGA GEMENT OF PATIENT CARE PER NURSING PROTOCOL Performed By: #### L 501.080 ####[facility] [address] [place], [address] Urinalysis, Completeon 10-16 Mucus Ql (Urine sed) 0 SEEN Normal [facility] Comment on above: Order Comment: [facility] SPECIMEN Performed By: #### L 400.0001, M100.2200 ####[facility] [address] [place], [address] Bedside Glucoseon 10-15-2024 FINGERSTICK GLU 259 mg/dL High -106 [facility] Comment on above: Result Comment: OLGA GEMENT OF PATIENT CARE PER NURSING PROTOCOL Performed By: #### L 501.080 ####[facility] [address] [place], [address] FINGERSTICK GLU 219 mg/dL High -106 [facility] Comment on above: Result Comment: OLGA GEMENT OF PATIENT CARE PER NURSING PROTOCOL Performed By: #### L 501.080 ####[facility] [address] [place], [address] FINGERSTICK GLU 241 mg/dL High 74-106 [facility] Comment on above: Result Comment: OLGA GEMENT OF PATIENT CARE PER NURSING PROTOCOL Performed By: #### L 501.080 ####[facility] [address] [place], [address] FINGERSTICK GLU 76 mg/dL Normal 74-106 [facility] Comment on above: Result Comment: OLGA GEMENT OF PATIENT CARE PER NURSING PROTOCOL Performed By: #### L 501.080 ####[facility] [address] [place], [address] Bedside Glucoseon 10-14-2024 FINGERSTICK GLU 168 mg/dL High 74-106 [facility] Comment on above: Result Comment: OLGA GEMENT OF PATIENT CARE PER NURSING PROTOCOL Performed By: #### L 501.080 ####[facility] [address] [place], [address] FINGERSTICK GLU 179 mg/dL High 74-106 [facility] Comment on above: Result Comment: OLGA GEMENT OF PATIENT CARE PER NURSING PROTOCOL Performed By: #### L 501.080 ####[facility] [address] [place], [address] FINGERSTICK GLU 192 mg/dL High 74-106 [facility] Comment on above: Result Comment: OLGA GEMENT OF PATIENT CARE PER NURSING PROTOCOL Performed By: #### L 501.080 ####[facility] [address] [place], [address] FINGERSTICK GLU 96 mg/dL Normal 74-106 [facility] Comment on above: Result Comment: OLGA GEMENT OF PATIENT CARE PER NURSING PROTOCOL Performed By: #### L 501.080 ####[facility] [address] [place], [address] FINGERSTICK GLU 84 mg/dL Normal 74-106 [facility] Comment on above: Result Comment: OLGA GEMENT OF PATIENT CARE PER NURSING PROTOCOL Performed By: #### L 501.080 ####[facility] [address] [place], [address] Basic Metabolic Profile (BMP )on 10-13-2024 Anion gap [Moles/Vol] 12 mmol/L Normal 5-15 [facility] Comment on above: Performed By: #### L 500.2500 ####[facility] [address] [place], [address] BUN/CRE 26.2 RATIO High 10-20 [facility] Comment on above: Performed By: #### L 500.2500 ####[facility] [address] [place], [address] Calcium [Mass/Vol] 9.2 mg/dL Normal 7.6-11.0 [facility] Comment on above: Performed By: #### L 500.2500 ####[facility] [address] [place], [address] Chloride [Moles/Vol] 105 mmol/L Normal 96-108 [facility] Comment on above: Performed By: #### L 500.2500 ####[facility] [address] [place], [address] CO2 [Moles/Vol] 23.6 mmol/L Normal 22.0-29.0 [facility] Comment on above: Performed By: #### L 500.2500 ####[facility] [address] [place], [address] Creatinine [Mass/Vol] 0.81 mg/dL Normal 0.70-1.20 [facility] Comment on above: Performed By: #### L 500.2500 ####[facility] [address] [place], [address] ECRCL 48.72 ml/min Low 50-250 [facility] Comment on above: Performed By: #### L 500.2500 ####[facility] [address] [place], [address] GFR/1.73 sq M.predicted among non-blacks MDRD (S/P/Bld) [Vol rate/Area] 73 mL/min/{1.73_m2} Normal >60 [facility] Comment on above: Result Comment: mL/m in/1.73m2 CKD-EPI Creatinine Equation (2020) Performed By: #### L 500.2500 ####[facility] [address] [place], [address] Glucose [Mass/Vol] 176 mg/dL High 70-99 [facility] Comment on above: Performed By: #### L 500.2500 ####[facility] [address] [place], [address] Potassium [Moles/Vol] 3.9 mmol/L Normal 3.3-5.1 [facility] Comment on above: Performed By: #### L 500.2500 ####[facility] [address] [place], [address] Sodium [Moles/Vol] 140 mmol/L Normal 133-145 [facility] Comment on above: Performed By: #### L 500.2500 ####[facility] [address] [place], [address] Urea nitrogen [Mass/Vol] 21 mg/dL High 4-19 [facility] Comment on above: Performed By: #### L 500.2500 ####[facility] [address] [place], [address] BUN Normal 7-18 [facility] Comment on above: Result Comment: WILL REORDER Performed By: #### L 500.2500, L100.0100 ####[facility] [address] [place], [address] BUN/CRE Normal 10-20 [facility] Comment on above: Result Comment: WILL REORDER Performed By: #### L 500.2500, L100.0100 ####[facility] [address] [place], [address] Calcium Normal 8.5-10.1 [facility] Comment on above: Result Comment: WILL REORDER Performed By: #### L 500.2500, L100.0100 ####[facility] [address] [place], [address] CL Normal 98-107 [facility] Comment on above: Result Comment: WILL REORDER Performed By: #### L 500.2500, L100.0100 ####[facility] [address] [place], [address] CO2 Normal 21.0-32.0 [facility] Comment on above: Result Comment: WILL REORDER Performed By: #### L 500.2500, L100.0100 ####[facility] [address] [place], [address] CREAT,SERUM Normal 0.55-1.02 [facility] Comment on above: Result Comment: WILL REORDER Performed By: #### L 500.2500, L100.0100 ####[facility] [address] [place], [address] eGFR Normal >60 [facility] Comment on above: Result Comment: WILL REORDER Performed By: #### L 500.2500, L100.0100 ####[facility] [address] [place], [address] EST GFR - AA Normal >60 [facility] Comment on above: Result Comment: WILL REORDER Performed By: #### L 500.2500, L100.0100 ####[facility] [address] [place], [address] GAP Normal 5-15 [facility] Comment on above: Result Comment: WILL REORDER Performed By: #### L 500.2500, L100.0100 ####[facility] [address] [place], [address] GLU Normal 74-106 [facility] Comment on above: Result Comment: WILL REORDER Performed By: #### L 500.2500, L100.0100 ####[facility] [address] [place], [address] Potassium Normal 3.5-5.1 [facility] Comment on above: Result Comment: WILL REORDER Performed By: #### L 500.2500, L100.0100 ####[facility] [address] [place], [address] Basic Metabolic Profile (BMP) Normal 136-145 [facility] Comment on above: Result Comment: WILL REORDER Performed By: #### L 500.2500, L100.0100 ####[facility] [address] [place], [address] Bedside Glucoseon 10-13-2024 FINGERSTICK GLU 188 mg/dL High 74-106 [facility] Comment on above: Result Comment: OLGA GEMENT OF PATIENT CARE PER NURSING PROTOCOL Performed By: #### L 501.080 ####[facility] [address] [place], [address] FINGERSTICK GLU 143 mg/dL High 74-106 [facility] Comment on above: Result Comment: OLGA GEMENT OF PATIENT CARE PER NURSING PROTOCOL Performed By: #### L 501.080 ####[facility] [address] [place], [address] FINGERSTICK GLU 268 mg/dL High 74-106 [facility] Comment on above: Result Comment: OLGA GEMENT OF PATIENT CARE PER NURSING PROTOCOL Performed By: #### L 501.080 ####[facility] [address] [place], [address] FINGERSTICK GLU 173 mg/dL High 74-106 [facility] Comment on above: Result Comment: OLGA GEMENT OF PATIENT CARE PER NURSING PROTOCOL Performed By: #### L 501.080 ####[facility] [address] [place], [address] CBC W/Diff, Automatedon 03-0 3-5 Absolute Lymph 2.78 X10 3/uL Normal 0.83-4.51 [facility] Comment on above: Performed By: #### L 500.2500, L100.0100 ####[facility] [address] [place], [address] Absolute Neut 3.6 X10 3/uL Normal 2.0-7.7 [facility] Comment on above: Performed By: #### L 500.2500, L100.0100 ####[facility] [address] [place], [address] Basophils/100 WBC (Bld) 0.4 % Normal 0-1 [facility] Comment on above: Performed By: #### L 500.2500, L100.0100 ####[facility] [address] [place], [address] Eosinophils/100 WBC (Bld) 4.1 % Normal 0-5 [facility] [facility] Comment on above: Performed By: #### L 500.2500, L100.0100 ####[facility] [address] [place], [address] Erythrocyte distribution width (RBC) [Ratio] 13.2 % Normal 11.6-14.6 [facility] Comment on above: Performed By: #### L 500.2500, L100.0100 ####[facility] [address] [place], [address] Hematocrit (Bld) [Volume fraction] 34.1 % Low 37-47 [facility] Comment on above: Performed By: #### L 500.2500, L100.0100 ####[facility] [address] [place], [address] Hemoglobin (Bld) [Mass/Vol] 11.5 g/dL Low 12.0-15.0 [facility] Comment on above: Performed By: #### L 500.2500, L100.0100 ####[facility] [address] [place], [address] IG% 0.300 Normal 0.0-0.9 [facility] Comment on above: Result Comment: IG% - Immature Granulocytes (promyelocytes, myelocytes andmetamyelocytes) > 1% indicates that a LEFT SHIFT is Present. Performed By: #### L 500.2500, L100.0100 ####[facility] [address] [place], [address] Lymphocytes/100 WBC (Bld) 36.3 % Normal 19-41 [facility] Comment on above: Performed By: #### L 500.2500, L100.0100 ####[facility] [address] [place], [address] MCH (RBC) [Entitic mass] 31.3 pg Normal 27.0-32.0 [facility] Comment on above: Performed By: #### L 500.2500, L100.0100 ####[facility] [address] [place], [address] MCHC (RBC) [Mass/Vol] 33.7 g/dL Normal 32-36 [facility] Comment on above: Performed By: #### L 500.2500, L100.0100 ####[facility] [address] [place], [address] MCV (RBC) [Entitic vol] 92.7 fL Normal 81-99 [facility] Comment on above: Performed By: #### L 500.2500, L100.0100 ####[facility] [address] [place], [address] Monocytes/100 WBC (Bld) 11.9 % High 0-10 [facility] Comment on above: Performed By: #### L 500.2500, L100.0100 ####[facility] [address] [place], [address] Neutrophils/100 WBC (Bld) 47.0 % Normal 47-70 [facility] Comment on above: Performed By: #### L 500.2500, L100.0100 ####[facility] [address] [place], [address] Nucleated RBC (Bld) [#/Vol] 0 10*3/uL Normal 0-5 [facility] Comment on above: Performed By: #### L 500.2500, L100.0100 ####[facility] [address] [place], [address] Platelet mean volume (Bld) [Entitic vol] 10.4 fL Normal 6.2-12.0 [facility] Comment on above: Performed By: #### L 500.2500, L100.0100 ####[facility] [address] [place], [address] Platelets (Bld) [#/Vol] 210 10*3/uL Normal 150-450 [facility] Comment on above: Performed By: #### L 500.2500, L100.0100 ####[facility] [address] [place], [address] RBC (Bld) [#/Vol] 3.68 10*6/uL Low 4.2-5.4 [facility] Comment on above: Performed By: #### L 500.2500, L100.0100 ####[facility] [address] [place], [address] RDW SD 44.4 fl High 35.1-43.9 [facility] Comment on above: Performed By: #### L 500.2500, L100.0100 ####[facility] [address] [place], [address] WBC (Bld) [#/Vol] 7.7 10*3/uL Normal 4.4-11.0 [facility] Comment on above: Performed By: #### L 500.2500, L100.0100 ####[facility] [address] [place], [address] Bedside Glucoseon 10-12-2024 FINGERSTICK GLU 188 mg/dL High [address] [place] [address] Comment on above: Result Comment: OLGA GEMENT OF PATIENT CARE PER NURSING PROTOCOL Performed By: #### L 501.080 ####[facility] [address] [place], [address] FINGERSTICK GLU 208 mg/dL High [address] [place] [address] Comment on above: Result Comment: OLGA GEMENT OF PATIENT CARE PER NURSING PROTOCOL Performed By: #### L 501.080 ####[facility] [address] [place], [address] FINGERSTICK GLU 195 mg/dL High [address] [place] [address] Comment on above: Result Comment: OLGA GEMENT OF PATIENT CARE PER NURSING PROTOCOL Performed By: #### L 501.080 ####[facility] [address] [place], [address] FINGERSTICK GLU 97 mg/dL Normal -[address] [place] [address] Comment on above: Result Comment: OLGA GEMENT OF PATIENT CARE PER NURSING PROTOCOL Performed By: #### L 501.080 ####[facility] [address] [place], [address] Bedside Glucoseon 5 FINGERSTICK GLU 195 mg/dL High [address] [place] [address] Comment on above: Result Comment: OLGA GEMENT OF PATIENT CARE PER NURSING PROTOCOL Performed By: #### L 501.080 ####[facility] [address] [place], [address] FINGERSTICK GLU 151 mg/dL High [address] [place] [address] Comment on above: Result Comment: OLGA GEMENT OF PATIENT CARE PER NURSING PROTOCOL Performed By: #### L 501.080 ####[facility] [address] [place], [address] FINGERSTICK GLU 197 mg/dL High -106 [facility] Comment on above: Result Comment: OLGA GEMENT OF PATIENT CARE PER NURSING PROTOCOL Performed By: #### L 501.080 ####[facility] [address] [place], [address] FINGERSTICK GLU 196 mg/dL High [facility]106 [facility] Comment on above: Result Comment: OLGA GEMENT OF PATIENT CARE PER NURSING PROTOCOL Performed By: #### L 501.080 ####[facility] [address] [place], [address] Bedside Glucoseon 10-10-2024 FINGERSTICK GLU 246 mg/dL High [address] [place] [address] Comment on above: Result Comment: OLGA GEMENT OF PATIENT CARE PER NURSING PROTOCOL Performed By: #### L 501.080 ####[facility] [address] [place], [address] FINGERSTICK GLU 283 mg/dL High [facility]106 [facility] Comment on above: Result Comment: OLGA GEMENT OF PATIENT CARE PER NURSING PROTOCOL Performed By: #### L 501.080 ####[facility] [address] [place], [address] FINGERSTICK GLU 227 mg/dL High [address] [place] [address] Comment on above: Result Comment: OLGA GEMENT OF PATIENT CARE PER NURSING PROTOCOL Performed By: #### L 501.080 ####[facility] [address] [place], [address] FINGERSTICK GLU 112 mg/dL High [address] [place] [address] Comment on above: Result Comment: OLGA GEMENT OF PATIENT CARE PER NURSING PROTOCOL Performed By: #### L 501.080 ####[facility] [address] [place], [address] Bedside Glucoseon 10-09-2024 FINGERSTICK GLU 263 mg/dL High 74-106 [facility] Comment on above: Result Comment: OLGA GEMENT OF PATIENT CARE PER NURSING PROTOCOL Performed By: #### L 501.080 ####[facility] [address] [place], [address] FINGERSTICK GLU 221 mg/dL High 74-106 [facility] Comment on above: Result Comment: OLGA GEMENT OF PATIENT CARE PER NURSING PROTOCOL Performed By: #### L 501.080 ####[facility] [address] [place], [address] FINGERSTICK GLU 298 mg/dL High 74-106 [facility] Comment on above: Result Comment: OLGA GEMENT OF PATIENT CARE PER NURSING PROTOCOL Performed By: #### L 501.080 ####[facility] [address] [place], [address] FINGERSTICK GLU 181 mg/dL High [facility]106 [facility] Comment on above: Result Comment: OLGA GEMENT OF PATIENT CARE PER NURSING PROTOCOL Performed By: #### L 501.080 ####[facility] [address] [place], [address] Bedside Glucoseon 10-08-2024 FINGERSTICK GLU 229 mg/dL High -106 [facility] Comment on above: Result Comment: OLGA GEMENT OF PATIENT CARE PER NURSING PROTOCOL Performed By: #### L 501.080 ####[facility] [address] [place], [address] FINGERSTICK GLU 207 mg/dL High -106 [facility] Comment on above: Result Comment: OLGA GEMENT OF PATIENT CARE PER NURSING PROTOCOL Performed By: #### L 501.080 ####[facility] [address] [place], [address] FINGERSTICK GLU 271 mg/dL High [address] [place] [address] Comment on above: Result Comment: OLGA GEMENT OF PATIENT CARE PER NURSING PROTOCOL Performed By: #### L 501.080 ####[facility] [address] [place], [address] FINGERSTICK GLU 143 mg/dL High [address] [place] [address] Comment on above: Result Comment: OLGA GEMENT OF PATIENT CARE PER NURSING PROTOCOL Performed By: #### L 501.080 ####[facility] [address] [place], [address] Bedside Glucoseon 10-07-2024 FINGERSTICK GLU 137 mg/dL [address] Comment on above: Result Comment: OLGA GEMENT OF PATIENT CARE PER NURSING PROTOCOL Performed By: #### L 501.080 ####[facility] [address] [place], [address] FINGERSTICK GLU 165 mg/dL [address] Comment on above: Result Comment: OLGA GEMENT OF PATIENT CARE PER NURSING PROTOCOL Performed By: #### L 501.080 ####[facility] [address] [place], [address] FINGERSTICK GLU 324 mg/dL [address] Comment on above: Result Comment: OLGA GEMENT OF PATIENT CARE PER NURSING PROTOCOL Performed By: #### L 501.080 ####[facility] [address] [place], [address] FINGERSTICK GLU 241 mg/dL [address] Comment on above: Result Comment: OLGA GEMENT OF PATIENT CARE PER NURSING PROTOCOL Performed By: #### L 501.080 ####[facility] [address] [place], [address] Basic Metabolic Profile (BMP )on 10-06-2024 BUN/CRE 30.6 RATIO High 10-20 [facility] Comment on above: Performed By: #### L 500.2500, L100.0100 ####[facility] [address] [place], [address] CA,Total 9.3 mg/dL Normal 8.5-10.1 [facility] Comment on above: Performed By: #### L 500.2500, L100.0100 ####[facility] [address] [place], [address] Chloride [Moles/Vol] 106 mmol/L Normal 98-107 [facility] Comment on above: Performed By: #### L 500.2500, L100.0100 ####[facility] [address] [place], [address] CO2 [Moles/Vol] 25.0 mmol/L Normal 21.0-32.0 [facility] Comment on above: Performed By: #### L 500.2500, L100.0100 ####[facility] [address] [place], [address] Creatinine [Mass/Vol] 0.75 mg/dL Normal 0.55-1.02 [facility] Comment on above: Result Comment: The validity of the calculated GFR GFRAA in patients over70 years has not been determined. Clinical correlation isessential. Performed By: #### L 500.2500, L100.0100 ####[facility] [address] [place], [address] ECRCL 49.46 ml/min Normal [facility] Comment on above: Performed By: #### L 500.2500, L100.0100 ####[facility] [address] [place], [address] EST GFR - AA 95 mL/min Normal >60 [facility] Comment on above: Result Comment: Afri can Latvian GFR Calc Performed By: #### L 500.2500, L100.0100 ####[facility] [address] [place], [address] GAP 8 Normal 5-15 [facility] Comment on above: Performed By: #### L 500.2500, L100.0100 ####[facility] [address] [place], [address] GFR/1.73 sq M.predicted among non-blacks MDRD (S/P/Bld) [Vol rate/Area] 78 mL/min/{1.73_m2} Normal >60 [facility] Comment on above: Result Comment: Non- GFR Calc Performed By: #### L 500.2500, L100.0100 ####[facility] [address] [place], [address] Glucose [Mass/Vol] 179 mg/dL High 74-106 [facility] Comment on above: Result Comment: Fast ing Glucose result greater than or equal to 126 mg/dLsuggests DIABETES MELLITUS per A.D.A. criteria. Performed By: #### L 500.2500, L100.0100 ####[facility] [address] [place], [address] Potassium [Moles/Vol] 3.9 mmol/L Normal 3.5-5.1 [facility] Comment on above: Performed By: #### L 500.2500, L100.0100 ####[facility] [address] [place], [address] Sodium [Moles/Vol] 139 mmol/L Normal 136-145 [facility] Comment on above: Performed By: #### L 500.2500, L100.0100 ####[facility] [address] [place], [address] Urea nitrogen [Mass/Vol] 23 mg/dL High 7-18 [facility] Comment on above: Performed By: #### L 500.2500, L100.0100 ####[facility] [address] [place], [address] Bedside Glucoseon 02-24-2025 FINGERSTICK GLU 234 mg/dL High -106 [facility] Comment on above: Result Comment: OLGA GEMENT OF PATIENT CARE PER NURSING PROTOCOL Performed By: #### L 501.080 ####[facility] [address] [place], [address] FINGERSTICK GLU 225 mg/dL High [facility]106 [facility] Comment on above: Result Comment: OLGA GEMENT OF PATIENT CARE PER NURSING PROTOCOL Performed By: #### L 501.080 ####[facility] [address] [place], [address] FINGERSTICK GLU 298 mg/dL High [address] [place] [address] Comment on above: Result Comment: OLGA GEMENT OF PATIENT CARE PER NURSING PROTOCOL Performed By: #### L 501.080 ####[facility] [address] [place], [address] FINGERSTICK GLU 183 mg/dL High [address] [place] [address] Comment on above: Result Comment: OLGA GEMENT OF PATIENT CARE PER NURSING PROTOCOL Performed By: #### L 501.080 ####[facility] [address] [place], [address] CBC W/Diff, Automatedon - Absolute Lymph 2.46 X10 3/uL Normal 0.83-4.51 [facility] Comment on above: Performed By: #### L 500.2500, L100.0100 ####[facility] [address] [place], [address] Absolute Neut 4.7 X10 3/uL Normal 2.0-7.7 [facility] Comment on above: Performed By: #### L 500.2500, L100.0100 ####[facility] [address] [place], [address] Basophils/100 WBC (Bld) 0.5 % Normal 0-1 [facility] Comment on above: Performed By: #### L 500.2500, L100.0100 ####[facility] [address] [place], [address] Eosinophils/100 WBC (Bld) 4.2 % Normal 0-5 [facility] Comment on above: Performed By: #### L 500.2500, L100.0100 ####[facility] [address] [place], [address] Erythrocyte distribution width (RBC) [Ratio] 12.9 % Normal 11.6-14.6 [facility] Comment on above: Performed By: #### L 500.2500, L100.0100 ####[facility] [address] [place], [address] Hematocrit (Bld) [Volume fraction] 36.2 % Low 37-47 [facility] Comment on above: Performed By: #### L 500.2500, L100.0100 ####[facility] [address] [place], [address] Hemoglobin (Bld) [Mass/Vol] 12.1 g/dL Normal 12.0-15.0 [facility] Comment on above: Performed By: #### L 500.2500, L100.0100 ####[facility] [address] [place], [address] IG% 0.200 Normal 0.0-0.9 [facility] Comment on above: Result Comment: IG% - Immature Granulocytes (promyelocytes, myelocytes andmetamyelocytes) > 1% indicates that a LEFT SHIFT is Present. Performed By: #### L 500.2500, L100.0100 ####[facility] [address] [place], [address] Lymphocytes/100 WBC (Bld) 28.9 % Normal 19-41 [facility] Comment on above: Performed By: #### L 500.2500, L100.0100 ####[facility] [address] [place], [address] MCH (RBC) [Entitic mass] 31.1 pg Normal 27.0-32.0 [facility] Comment on above: Performed By: #### L 500.2500, L100.0100 ####[facility] [address] [place], [address] MCHC (RBC) [Mass/Vol] 33.4 g/dL Normal 32-36 [facility] Comment on above: Performed By: #### L 500.2500, L100.0100 ####[facility] [address] [place], [address] MCV (RBC) [Entitic vol] 93.1 fL Normal 81-99 [facility] Comment on above: Performed By: #### L 500.2500, L100.0100 ####[facility] [address] [place], [address] Monocytes/100 WBC (Bld) 10.5 % High 0-10 [facility] Comment on above: Performed By: #### L 500.2500, L100.0100 ####[facility] [address] [place], [address] Neutrophils/100 WBC (Bld) 55.7 % Normal 47-70 [facility] Comment on above: Performed By: #### L 500.2500, L100.0100 ####[facility] [address] [place], [address] Nucleated RBC (Bld) [#/Vol] 0 10*3/uL Normal 0-5 [facility] Comment on above: Performed By: #### L 500.2500, L100.0100 ####[facility] [address] [place], [address] Platelet mean volume (Bld) [Entitic vol] 10.9 fL Normal 6.2-12.0 [facility] Comment on above: Performed By: #### L 500.2500, L100.0100 ####[facility] [address] [place], [address] Platelets (Bld) [#/Vol] 229 10*3/uL Normal 150-450 [facility] Comment on above: Performed By: #### L 500.2500, L100.0100 ####[facility] [address] [place], [address] RBC (Bld) [#/Vol] 3.89 10*6/uL Low 4.2-5.4 [facility] Comment on above: Performed By: #### L 500.2500, L100.0100 ####[facility] [address] [place], [address] RDW SD 43.7 fl Normal 35.1-43.9 [facility] Comment on above: Performed By: #### L 500.2500, L100.0100 ####[facility] [address] [place], [address] WBC (Bld) [#/Vol] 8.5 10*3/uL Normal 4.4-11.0 [facility] Comment on above: Performed By: #### L 500.2500, L100.0100 ####[facility] [address] [place], [address] Bedside Glucoseon 10-05-2024 FINGERSTICK GLU 233 mg/dL High 74-106 [facility] Comment on above: Result Comment: OLGA GEMENT OF PATIENT CARE PER NURSING PROTOCOL Performed By: #### L 501.080 ####[facility] [address] [place], [address] FINGERSTICK GLU 249 mg/dL High 74-106 [facility] Comment on above: Result Comment: OLGA GEMENT OF PATIENT CARE PER NURSING PROTOCOL Performed By: #### L 501.080 ####[facility] [address] [place], [address] FINGERSTICK GLU 368 mg/dL High 74-106 [facility] Comment on above: Result Comment: OLGA GEMENT OF PATIENT CARE PER NURSING PROTOCOL Performed By: #### L 501.080 ####[facility] [address] [place], [address] FINGERSTICK GLU 233 mg/dL High 74-106 [facility] Comment on above: Result Comment: OLGA GEMENT OF PATIENT CARE PER NURSING PROTOCOL Performed By: #### L 501.080 ####[facility] [address] [place], [address] Bedside Glucoseon 10-04-2024 FINGERSTICK GLU 305 mg/dL High -[address] [place] [address] Comment on above: Result Comment: OLGA GEMENT OF PATIENT CARE PER NURSING PROTOCOL Performed By: #### L 501.080 ####[facility] [address] [place], [address] FINGERSTICK GLU 331 mg/dL High [address] [place] [address] Comment on above: Result Comment: OLGA GEMENT OF PATIENT CARE PER NURSING PROTOCOL Performed By: #### L 501.080 ####[facility] [address] [place], [address] FINGERSTICK GLU 298 mg/dL High [facility]106 [facility] Comment on above: Result Comment: OLGA GEMENT OF PATIENT CARE PER NURSING PROTOCOL Performed By: #### L 501.080 ####[facility] [address] [place], [address] FINGERSTICK GLU 215 mg/dL High [address] [place] [address] Comment on above: Result Comment: OLGA GEMENT OF PATIENT CARE PER NURSING PROTOCOL Performed By: #### L 501.080 ####[facility] [address] [place], [address] Bedside Glucoseon 10-03-2024 FINGERSTICK GLU 191 mg/dL High 74-106 [facility] Comment on above: Result Comment: OLGA GEMENT OF PATIENT CARE PER NURSING PROTOCOL Performed By: #### L 501.080 ####[facility] [address] [place], [address] FINGERSTICK GLU 188 mg/dL High [facility]106 [facility] Comment on above: Result Comment: OLGA GEMENT OF PATIENT CARE PER NURSING PROTOCOL Performed By: #### L 501.080 ####[facility] [address] [place], [address] FINGERSTICK GLU 321 mg/dL High [address] [place] [address] Comment on above: Result Comment: OLGA GEMENT OF PATIENT CARE PER NURSING PROTOCOL Performed By: #### L 501.080 ####[facility] [address] [place], [address] FINGERSTICK GLU 178 mg/dL High -[address] [place] [address] Comment on above: Result Comment: OLGA GEMENT OF PATIENT CARE PER NURSING PROTOCOL Performed By: #### L 501.080 ####[facility] [address] [place], [address] Bedside Glucoseon 10-02-2024 FINGERSTICK GLU 214 mg/dL High -[address] [place] [address] Comment on above: Result Comment: OLGA GEMENT OF PATIENT CARE PER NURSING PROTOCOL Performed By: #### L 501.080 ####[facility] [address] [place], [address] FINGERSTICK GLU 205 mg/dL High [address] [place] [address] Comment on above: Result Comment: OLGA GEMENT OF PATIENT CARE PER NURSING PROTOCOL Performed By: #### L 501.080 ####[facility] [address] [place], [address] FINGERSTICK GLU 269 mg/dL High [address] [place] [address] Comment on above: Result Comment: OLGA GEMENT OF PATIENT CARE PER NURSING PROTOCOL Performed By: #### L 501.080 ####[facility] [address] [place], [address] FINGERSTICK GLU 185 mg/dL High 74-106 [facility] Comment on above: Result Comment: OLGA GEMENT OF PATIENT CARE PER NURSING PROTOCOL Performed By: #### L 501.080 ####[facility] [address] [place], [address] Bedside Glucoseon 10-01-2024 FINGERSTICK GLU 213 mg/dL High 74-106 [facility] Comment on above: Result Comment: OLGA GEMENT OF PATIENT CARE PER NURSING PROTOCOL Performed By: #### L 501.080 ####[facility] [address] [place], [address] FINGERSTICK GLU 193 mg/dL High 74-106 [facility] Comment on above: Result Comment: OLGA GEMENT OF PATIENT CARE PER NURSING PROTOCOL Performed By: #### L 501.080 ####[facility] [address] [place], [address] FINGERSTICK GLU 253 mg/dL High -106 [facility] Comment on above: Result Comment: OLGA GEMENT OF PATIENT CARE PER NURSING PROTOCOL Performed By: #### L 501.080 ####[facility] [address] [place], [address] FINGERSTICK GLU 172 mg/dL High 74-106 [facility] Comment on above: Result Comment: OLGA GEMENT OF PATIENT CARE PER NURSING PROTOCOL Performed By: #### L 501.080 ####[facility] [address] [place], [address] COVID 19 AG RAPID (MANNY Peters)on 10-01-2024 SARS-CoV-2 (COVID-19) RNA JOANNA+probe Ql (Unsp spec) Normal [facility] Comment on above: Performed By: #### M 100.505 ####[facility] [address] [place], [address] SP/SP.FEESon 10-01-2024 SP/SP.FEES Normal [facility] Bedside Glucoseon 09-30-2024 FINGERSTICK GLU 187 mg/dL High 74-106 [facility] Comment on above: Result Comment: OLGA GEMENT OF PATIENT CARE PER NURSING PROTOCOL Performed By: #### L 501.080 ####[facility] [address] [place], [address] FINGERSTICK GLU 199 mg/dL High 74-106 [facility] Comment on above: Result Comment: OLGA GEMENT OF PATIENT CARE PER NURSING PROTOCOL Performed By: #### L 501.080 ####[facility] [address] [place], [address] FINGERSTICK GLU 233 mg/dL High 74-106 [facility] Comment on above: Result Comment: OLGA GEMENT OF PATIENT CARE PER NURSING PROTOCOL Performed By: #### L 501.080 ####[facility] [id number] [place], [address] FINGERSTICK GLU 181 mg/dL High 74-106 [facility] Comment on above: Result Comment: OLGA GEMENT OF PATIENT CARE PER NURSING PROTOCOL Performed By: #### L 501.080 ####[facility] [id number] [place], [address] Consultation - Surgicalon Consultation - Surgical Normal [facility] Basic Metabolic Profile (BMP )on 09-29-2024 BUN/CRE 21.9 RATIO High 10-20 [facility] Comment on above: Performed By: #### L 100.0100, L500.2500 ####[facility] [address] [place], [address] CA,Total 9.1 mg/dL Normal 8.5-10.1 [facility] Comment on above: Performed By: #### L 100.0100, L500.2500 ####[facility] [address] [place], [address] Chloride [Moles/Vol] 105 mmol/L Normal 98-107 [facility] Comment on above: Performed By: #### L 100.0100, L500.2500 ####[facility] [address] [place], [address] CO2 [Moles/Vol] 26.0 mmol/L Normal 21.0-32.0 [facility] Comment on above: Performed By: #### L 100.0100, L500.2500 ####[facility] [address] [place], [address] Creatinine [Mass/Vol] 0.82 mg/dL Normal 0.55-1.02 [facility] Comment on above: Result Comment: The validity of the calculated GFR GFRAA in patients over70 years has not been determined. Clinical correlation isessential. Performed By: #### L 100.0100, L500.2500 ####[facility] [address] [place], [address] ECRCL 48.54 ml/min Normal [facility] Comment on above: Performed By: #### L 100.0100, L500.2500 ####[facility] [address] [place], [address] EST GFR - AA 86 mL/min Normal >60 [facility] Comment on above: Result Comment: Afri can Latvian GFR Calc Performed By: #### L 100.0100, L500.2500 ####[facility] [address] [place], [address] GAP 7 Normal 5-15 [facility] Comment on above: Performed By: #### L 100.0100, L500.2500 ####[facility] [address] [place], [address] GFR/1.73 sq M.predicted among non-blacks MDRD (S/P/Bld) [Vol rate/Area] 71 mL/min/{1.73_m2} Normal >60 [facility] Comment on above: Result Comment: Non- GFR Calc Performed By: #### L 100.0100, L500.2500 ####[facility] [address] [place], [address] Glucose [Mass/Vol] 200 mg/dL High 74-106 [facility] Comment on above: Result Comment: Gluc ose result greater than or equal to 200 mg/dLsuggests DIABETES MELLITUS per A.D.A. criteria. Performed By: #### L 100.0100, L500.2500 ####[facility] [address] [place], [address] Potassium [Moles/Vol] 3.8 mmol/L Normal 3.5-5.1 [facility] Comment on above: Performed By: #### L 100.0100, L500.2500 ####[facility] [address] [place], [address] Sodium [Moles/Vol] 138 mmol/L Normal 136-145 [facility] Comment on above: Performed By: #### L 100.0100, L500.2500 ####[facility] [address] [place], [address] Urea nitrogen [Mass/Vol] 18 mg/dL Normal 7-18 [facility] Comment on above: Performed By: #### L 100.0100, L500.2500 ####[facility] [address] [place], [address] Bedside Glucoseon 09-29-2024 FINGERSTICK GLU 171 mg/dL High 74-106 [facility] Comment on above: Result Comment: OLGA GOMEZ OF PATIENT CARE PER NURSING PROTOCOL Performed By: #### L 501.080 ####[facility] [address] [place], [address] FINGERSTICK GLU 140 mg/dL High 74-106 [facility] Comment on above: Result Comment: OLGA GEMENT OF PATIENT CARE PER NURSING PROTOCOL Performed By: #### L 501.080 ####[facility] [address] [place], [address] FINGERSTICK GLU 244 mg/dL High 74-106 [facility] Comment on above: Result Comment: OLGA GEMENT OF PATIENT CARE PER NURSING PROTOCOL Performed By: #### L 501.080 ####[facility] [address] [place], [address] FINGERSTICK GLU 191 mg/dL High 74-106 [facility] Comment on above: Result Comment: OLGA GEMENT OF PATIENT CARE PER NURSING PROTOCOL Performed By: #### L 501.080 ####[facility] [address] [place], [address] CBC W/Diff, Automatedon - Absolute Lymph 2.40 X10 3/uL Normal 0.83-4.51 [facility] Comment on above: Performed By: #### L 100.0100, L500.2500 ####[facility] [address] [place], [address] Absolute Neut 4.0 X10 3/uL Normal 2.0-7.7 [facility] Comment on above: Performed By: #### L 100.0100, L500.2500 ####[facility] [address] [place], [address] Basophils/100 WBC (Bld) 0.4 % Normal 0-1 [facility] Comment on above: Performed By: #### L 100.0100, L500.2500 ####[facility] [address] [place], [address] Eosinophils/100 WBC (Bld) 4.1 % Normal 0-5 [facility] Comment on above: Performed By: #### L 100.0100, L500.2500 ####[facility] [address] [place], [address] Erythrocyte distribution width (RBC) [Ratio] 12.8 % Normal 11.6-14.6 [facility] Comment on above: Performed By: #### L 100.0100, L500.2500 ####[facility] [address] [place], [address] Hematocrit (Bld) [Volume fraction] 37.7 % Normal 37-47 [facility] Comment on above: Performed By: #### L 100.0100, L500.2500 ####[facility] [address] [place], [address] Hemoglobin (Bld) [Mass/Vol] 12.4 g/dL Normal 12.0-15.0 [facility] Comment on above: Performed By: #### L 100.0100, L500.2500 ####[facility] [address] [place], [address] IG% 0.400 Normal 0.0-0.9 [facility] Comment on above: Result Comment: IG% - Immature Granulocytes (promyelocytes, myelocytes andmetamyelocytes) > 1% indicates that a LEFT SHIFT is Present. Performed By: #### L 100.0100, L500.2500 ####[facility] [address] [place], [address] Lymphocytes/100 WBC (Bld) 31.7 % Normal 19-41 [facility] Comment on above: Performed By: #### L 100.0100, L500.2500 ####[facility] [address] [place], [address] MCH (RBC) [Entitic mass] 30.5 pg Normal 27.0-32.0 [facility] Comment on above: Performed By: #### L 100.0100, L500.2500 ####[facility] [address] [place], [address] MCHC (RBC) [Mass/Vol] 32.9 g/dL Normal 32-36 [facility] Comment on above: Performed By: #### L 100.0100, L500.2500 ####[facility] [address] [place], [address] MCV (RBC) [Entitic vol] 92.9 fL Normal 81-99 [facility] Comment on above: Performed By: #### L 100.0100, L500.2500 ####[facility] [address] [place], [address] Monocytes/100 WBC (Bld) 10.1 % High 0-10 [facility] Comment on above: Performed By: #### L 100.0100, L500.2500 ####[facility] [address] [place], [address] Neutrophils/100 WBC (Bld) 53.3 % Normal 47-70 [facility] Comment on above: Performed By: #### L 100.0100, L500.2500 ####[facility] [address] [place], [address] Nucleated RBC (Bld) [#/Vol] 0 10*3/uL Normal 0-5 [facility] Comment on above: Performed By: #### L 100.0100, L500.2500 ####[facility] [address] [place], [address] Platelet mean volume (Bld) [Entitic vol] 10.7 fL Normal 6.2-12.0 [facility] Comment on above: Performed By: #### L 100.0100, L500.2500 ####[facility] [address] [place], [address] Platelets (Bld) [#/Vol] 229 10*3/uL Normal 150-450 [facility] Comment on above: Performed By: #### L 100.0100, L500.2500 ####[facility] [address] [place], [address] RBC (Bld) [#/Vol] 4.06 10*6/uL Low 4.2-5.4 [facility] Comment on above: Performed By: #### L 100.0100, L500.2500 ####[facility] [address] [place], [address] RDW SD 43.6 fl Normal 35.1-43.9 [facility] Comment on above: Performed By: #### L 100.0100, L500.2500 ####[facility] [address] [place], [address] WBC (Bld) [#/Vol] 7.6 10*3/uL Normal 4.4-11.0 [facility] Comment on above: Performed By: #### L 100.0100, L500.2500 ####[facility] [address] [place], [address] Bedside Glucoseon 09-28-2024 FINGERSTICK GLU 180 mg/dL High 74-106 [facility] Comment on above: Result Comment: OLGA GEMENT OF PATIENT CARE PER NURSING PROTOCOL Performed By: #### L 501.080 ####[facility] [address] [place], [address] FINGERSTICK GLU 187 mg/dL High 74-106 [facility] Comment on above: Result Comment: OLGA GEMENT OF PATIENT CARE PER NURSING PROTOCOL Performed By: #### L 501.080 ####[facility] [address] [place], [address] FINGERSTICK GLU 254 mg/dL High 74-106 [facility] Comment on above: Result Comment: OLGA GEMENT OF PATIENT CARE PER NURSING PROTOCOL Performed By: #### L 501.080 ####[facility] [address] [place], [address] FINGERSTICK GLU 146 mg/dL High -106 [facility] Comment on above: Result Comment: OLGA GEMENT OF PATIENT CARE PER NURSING PROTOCOL Performed By: #### L 501.080 ####[facility] [address] [place], [address] Bedside Glucoseon 09-27-2024 FINGERSTICK GLU 178 mg/dL High [address] [place] [address] Comment on above: Result Comment: OLGA GEMENT OF PATIENT CARE PER NURSING PROTOCOL Performed By: #### L 501.080 ####[facility] [address] [place], [address] FINGERSTICK GLU 198 mg/dL [address] Comment on above: Result Comment: OLGA GEMENT OF PATIENT CARE PER NURSING PROTOCOL Performed By: #### L 501.080 ####[facility] [address] [place], [address] FINGERSTICK GLU 319 mg/dL High [address] [place] [address] Comment on above: Result Comment: OLGA GEMENT OF PATIENT CARE PER NURSING PROTOCOL Performed By: #### L 501.080 ####[facility] [address] [place], [address] FINGERSTICK GLU 223 mg/dL [address] Comment on above: Result Comment: OLGA GEMENT OF PATIENT CARE PER NURSING PROTOCOL Performed By: #### L 501.080 ####[facility] [address] [place], [address] Bedside Glucoseon 09-26-2024 FINGERSTICK GLU 330 mg/dL [address] Comment on above: Result Comment: OLGA GEMENT OF PATIENT CARE PER NURSING PROTOCOL Performed By: #### L 501.080 ####[facility] [address] [place], [address] FINGERSTICK GLU 304 mg/dL High -106 [facility] Comment on above: Result Comment: OLGA GEMENT OF PATIENT CARE PER NURSING PROTOCOL Performed By: #### L 501.080 ####[facility] [address] [place], [address] FINGERSTICK GLU 277 mg/dL High [address] [place] [address] Comment on above: Result Comment: LOGA GEMENT OF PATIENT CARE PER NURSING PROTOCOL Performed By: #### L 501.080 ####[facility] [address] [place], [address] FINGERSTICK GLU 183 mg/dL High [address] [place] [address] Comment on above: Result Comment: OLGA GEMENT OF PATIENT CARE PER NURSING PROTOCOL Performed By: #### L 501.080 ####[facility] [address] [place], [address] Bedside Glucoseon 09-25-2024 FINGERSTICK GLU 285 mg/dL High -[address] [place] [address] Comment on above: Result Comment: OLGA GEMENT OF PATIENT CARE PER NURSING PROTOCOL Performed By: #### L 501.080 ####[facility] [address] [place], [address] FINGERSTICK GLU 293 mg/dL High [address] [place] [address] Comment on above: Result Comment: OLGA GEMENT OF PATIENT CARE PER NURSING PROTOCOL Performed By: #### L 501.080 ####[facility] [address] [place], [address] FINGERSTICK GLU 219 mg/dL High -[address] [place] [address] Comment on above: Result Comment: OLGA GEMENT OF PATIENT CARE PER NURSING PROTOCOL Performed By: #### L 501.080 ####[facility] [address] [place], [address] FINGERSTICK GLU 152 mg/dL High [facility]106 [facility] Comment on above: Result Comment: OLGA GEMENT OF PATIENT CARE PER NURSING PROTOCOL Performed By: #### L 501.080 ####[facility] [address] [place], [address] Bedside Glucoseon 09-24-2024 FINGERSTICK GLU 231 mg/dL High -106 [facility] Comment on above: Result Comment: OLGA GEMENT OF PATIENT CARE PER NURSING PROTOCOL Performed By: #### L 501.080 ####[facility] [address] [place], [address] FINGERSTICK GLU 221 mg/dL High 74-106 [facility] Comment on above: Result Comment: OLGA GEMENT OF PATIENT CARE PER NURSING PROTOCOL Performed By: #### L 501.080 ####[facility] [address] [place], [address] FINGERSTICK GLU 272 mg/dL High [address] [place] [address] Comment on above: Result Comment: OLGA GEMENT OF PATIENT CARE PER NURSING PROTOCOL Performed By: #### L 501.080 ####[facility] [address] [place], [address] FINGERSTICK GLU 174 mg/dL High -106 [facility] Comment on above: Result Comment: OLGA GEMENT OF PATIENT CARE PER NURSING PROTOCOL Performed By: #### L 501.080 ####[facility] [address] [place], [address] COVID 19 AG RAPID (RN JOSE Peters)on 09-24-2024 SARS-CoV-2 (COVID-19) RNA JOANNA+probe Ql (Unsp spec) Normal [facility] Comment on above: Performed By: #### M 100.505 ####[facility] [address] [place], [address] Bedside Glucoseon 09-23-2024 FINGERSTICK GLU 264 mg/dL High [address] [place] [address] Comment on above: Result Comment: OLGA GEMENT OF PATIENT CARE PER NURSING PROTOCOL Performed By: #### L 501.080 ####[facility] [address] [place], [address] FINGERSTICK GLU 215 mg/dL High 74-106 [facility] Comment on above: Result Comment: OLGA GEMENT OF PATIENT CARE PER NURSING PROTOCOL Performed By: #### L 501.080 ####[facility] [address] [place], [address] FINGERSTICK GLU 269 mg/dL High 74-106 [facility] Comment on above: Result Comment: OLGA GEMENT OF PATIENT CARE PER NURSING PROTOCOL Performed By: #### L 501.080 ####[facility] [address] [place], [address] FINGERSTICK GLU 150 mg/dL High 74-106 [facility] Comment on above: Result Comment: OLGA GEMENT OF PATIENT CARE PER NURSING PROTOCOL Performed By: #### L 501.080 ####[facility] [address] [place], [address] Basic Metabolic Profile (BMP )on 09-22-2024 BUN/CRE 23.1 RATIO High 10-20 [facility] Comment on above: Performed By: #### L 500.2500, L100.0100 ####[facility] [address] [place], [address] CA,Total 9.0 mg/dL Normal 8.5-10.1 [facility] Comment on above: Performed By: #### L 500.2500, L100.0100 ####[facility] [address] [place], [address] Chloride [Moles/Vol] 107 mmol/L Normal 98-107 [facility] Comment on above: Performed By: #### L 500.2500, L100.0100 ####[facility] [address] [place], [address] CO2 [Moles/Vol] 24.0 mmol/L Normal 21.0-32.0 [facility] Comment on above: Performed By: #### L 500.2500, L100.0100 ####[facility] [address] [place], [address] Creatinine [Mass/Vol] 0.74 mg/dL Normal 0.55-1.02 [facility] Comment on above: Result Comment: The validity of the calculated GFR GFRAA in patients over70 years has not been determined. Clinical correlation isessential. Performed By: #### L 500.2500, L100.0100 ####[facility] [address] [place], [address] ECRCL 49.86 ml/min Normal [facility] Comment on above: Performed By: #### L 500.2500, L100.0100 ####[facility] [address] [place], [address] EST GFR - AA 97 mL/min Normal >60 [facility] Comment on above: Result Comment: Afri can Latvian GFR Calc Performed By: #### L 500.2500, L100.0100 ####[facility] [address] [place], [address] GAP 9 Normal 5-15 [facility] Comment on above: Performed By: #### L 500.2500, L100.0100 ####[facility] [address] [place], [address] GFR/1.73 sq M.predicted among non-blacks MDRD (S/P/Bld) [Vol rate/Area] 80 mL/min/{1.73_m2} Normal >60 [facility] Comment on above: Result Comment: Non- GFR Calc Performed By: #### L 500.2500, L100.0100 ####[facility] [address] [place], [address] Glucose [Mass/Vol] 129 mg/dL High 74-106 [facility] Comment on above: Result Comment: Fast ing Glucose result greater than or equal to 126 mg/dLsuggests DIABETES MELLITUS per A.D.A. criteria. Performed By: #### L 500.2500, L100.0100 ####[facility] [address] [place], [address] Potassium [Moles/Vol] 4.1 mmol/L Normal 3.5-5.1 [facility] Comment on above: Performed By: #### L 500.2500, L100.0100 ####[facility] [address] [place], [address] Sodium [Moles/Vol] 140 mmol/L Normal 136-145 [facility] Comment on above: Performed By: #### L 500.2500, L100.0100 ####[facility] [address] [place], [address] Urea nitrogen [Mass/Vol] 17 mg/dL Normal 7-18 [facility] Comment on above: Performed By: #### L 500.2500, L100.0100 ####[facility] [address] [place], [address] Bedside Glucoseon 09-22-2024 FINGERSTICK GLU 159 mg/dL High 74-106 [facility] Comment on above: Result Comment: OLGA GEMENT OF PATIENT CARE PER NURSING PROTOCOL Performed By: #### L 501.080 ####[facility] [address] [place], [address] FINGERSTICK GLU 128 mg/dL High 74-106 [facility] Comment on above: Result Comment: OLGA GEMENT OF PATIENT CARE PER NURSING PROTOCOL Performed By: #### L 501.080 ####[facility] [address] [place], [address] FINGERSTICK GLU 68 mg/dL Low 74-106 [facility] Comment on above: Result Comment: OLGA GEMENT OF PATIENT CARE PER NURSING PROTOCOL Performed By: #### L 501.080 ####[facility] [address] [place], [address] FINGERSTICK GLU 86 mg/dL Normal 74-106 [facility] Comment on above: Result Comment: OLGA GEMENT OF PATIENT CARE PER NURSING PROTOCOL Performed By: #### L 501.080 ####[facility] [address] [place], [address] FINGERSTICK GLU 66 mg/dL Low 74-106 [facility] Comment on above: Result Comment: OLGA GEMENT OF PATIENT CARE PER NURSING PROTOCOL Performed By: #### L 501.080 ####[facility] [address] [place], [address] FINGERSTICK GLU 218 mg/dL High 74-106 [facility] Comment on above: Result Comment: OLGA GEMENT OF PATIENT CARE PER NURSING PROTOCOL Performed By: #### L 501.080 ####[facility] [address] [place], [address] FINGERSTICK GLU 136 mg/dL High 74-106 [facility] Comment on above: Result Comment: OLGA GEMENT OF PATIENT CARE PER NURSING PROTOCOL Performed By: #### L 501.080 ####[facility] [address] [place], [address] CBC W/Diff, Automatedon 02-1 0-5 Absolute Lymph 2.20 X10 3/uL Normal 0.83-4.51 [facility] Comment on above: Performed By: #### L 500.2500, L100.0100 ####[facility] [address] [place], [address] Absolute Neut 3.5 X10 3/uL Normal 2.0-7.7 [facility] Comment on above: Performed By: #### L 500.2500, L100.0100 ####[facility] [address] [place], [address] Basophils/100 WBC (Bld) 0.6 % Normal 0-1 [facility] Comment on above: Performed By: #### L 500.2500, L100.0100 ####[facility] [address] [place], [address] Eosinophils/100 WBC (Bld) 4.7 % Normal 0-5 [facility] Comment on above: Performed By: #### L 500.2500, L100.0100 ####[facility] [address] [place], [address] Erythrocyte distribution width (RBC) [Ratio] 12.9 % Normal 11.6-14.6 [facility] Comment on above: Performed By: #### L 500.2500, L100.0100 ####[facility] [address] [place], [address] Hematocrit (Bld) [Volume fraction] 35.2 % Low 37-47 [facility] Comment on above: Performed By: #### L 500.2500, L100.0100 ####[facility] [address] [place], [address] Hemoglobin (Bld) [Mass/Vol] 11.8 g/dL Low 12.0-15.0 [facility] Comment on above: Performed By: #### L 500.2500, L100.0100 ####[facility] [address] [place], [address] IG% 0.300 Normal 0.0-0.9 [facility] Comment on above: Result Comment: IG% - Immature Granulocytes (promyelocytes, myelocytes andmetamyelocytes) > 1% indicates that a LEFT SHIFT is Present. Performed By: #### L 500.2500, L100.0100 ####[facility] [address] [place], [address] Lymphocytes/100 WBC (Bld) 32.3 % Normal 19-41 [facility] Comment on above: Performed By: #### L 500.2500, L100.0100 ####[facility] [address] [place], [address] MCH (RBC) [Entitic mass] 31.2 pg Normal 27.0-32.0 [facility] Comment on above: Performed By: #### L 500.2500, L100.0100 ####[facility] [address] [place], [address] MCHC (RBC) [Mass/Vol] 33.5 g/dL Normal 32-36 [facility] Comment on above: Performed By: #### L 500.2500, L100.0100 ####[facility] [address] [place], [address] MCV (RBC) [Entitic vol] 93.1 fL Normal 81-99 [facility] Comment on above: Performed By: #### L 500.2500, L100.0100 ####[facility] [address] [place], [address] Monocytes/100 WBC (Bld) 11.3 % High 0-10 [facility] Comment on above: Performed By: #### L 500.2500, L100.0100 ####[facility] [address] [place], [address] Neutrophils/100 WBC (Bld) 50.8 % Normal 47-70 [facility] Comment on above: Performed By: #### L 500.2500, L100.0100 ####[facility] [address] [place], [address] Nucleated RBC (Bld) [#/Vol] 0 10*3/uL Normal 0-5 [facility] Comment on above: Performed By: #### L 500.2500, L100.0100 ####[facility] [address] [place], [address] Platelet mean volume (Bld) [Entitic vol] 10.1 fL Normal 6.2-12.0 [facility] Comment on above: Performed By: #### L 500.2500, L100.0100 ####[facility] [address] [place], [address] Platelets (Bld) [#/Vol] 266 10*3/uL Normal 150-450 [facility] Comment on above: Performed By: #### L 500.2500, L100.0100 ####[facility] [address] [place], [address] RBC (Bld) [#/Vol] 3.78 10*6/uL Low 4.2-5.4 [facility] Comment on above: Performed By: #### L 500.2500, L100.0100 ####[facility] [address] [place], [address] RDW SD 43.8 fl Normal 35.1-43.9 [facility] Comment on above: Performed By: #### L 500.2500, L100.0100 ####[facility] [address] [place], [address] WBC (Bld) [#/Vol] 6.8 10*3/uL Normal 4.4-11.0 [facility] Comment on above: Performed By: #### L 500.2500, L100.0100 ####[facility] [address] [place], [address] Bedside Glucoseon 09-21-2024 FINGERSTICK GLU 180 mg/dL High 74-106 [facility] Comment on above: Result Comment: OLGA GEMENT OF PATIENT CARE PER NURSING PROTOCOL Performed By: #### L 501.080 ####[facility] [address] [place], [address] FINGERSTICK GLU 116 mg/dL High 74-106 [facility] Comment on above: Result Comment: OLGA GEMENT OF PATIENT CARE PER NURSING PROTOCOL Performed By: #### L 501.080 ####[facility] [id number] [place], [address] FINGERSTICK GLU 80 mg/dL Normal 74-106 [facility] Comment on above: Result Comment: OLGA GEMENT OF PATIENT CARE PER NURSING PROTOCOL Performed By: #### L 501.080 ####[facility] [id number] [place], [address] FINGERSTICK GLU 211 mg/dL High 74-106 [facility] Comment on above: Result Comment: OLGA GEMENT OF PATIENT CARE PER NURSING PROTOCOL Performed By: #### L 501.080 ####[facility] [id number] [place], [address] FINGERSTICK GLU 147 mg/dL High 74-106 [facility] Comment on above: Result Comment: OLGA GEMENT OF PATIENT CARE PER NURSING PROTOCOL Performed By: #### L 501.080 ####[facility] [address] [place], [address] FINGERSTICK GLU 179 mg/dL High -106 [facility] Comment on above: Result Comment: OLGA GEMENT OF PATIENT CARE PER NURSING PROTOCOL Performed By: #### L 501.080 ####[facility] [address] [place], [address] Bedside Glucoseon 09-20-2024 FINGERSTICK GLU 128 mg/dL High -106 [facility] Comment on above: Result Comment: OLGA GEMENT OF PATIENT CARE PER NURSING PROTOCOL Performed By: #### L 501.080 ####[facility] [address] [place], [address] FINGERSTICK GLU 210 mg/dL High -106 [facility] Comment on above: Result Comment: OLGA GEMENT OF PATIENT CARE PER NURSING PROTOCOL Performed By: #### L 501.080 ####[facility] [address] [place], [address] FINGERSTICK GLU 171 mg/dL High 74-106 [facility] Comment on above: Result Comment: OLGA GEMENT OF PATIENT CARE PER NURSING PROTOCOL Performed By: #### L 501.080 ####[facility] [address] [place], [address] Bedside Glucoseon 09-19-2024 FINGERSTICK GLU 104 mg/dL Normal 74-106 [facility] Comment on above: Result Comment: OLGA GEMENT OF PATIENT CARE PER NURSING PROTOCOL Performed By: #### L 501.080 ####[facility] [address] [place], [address] FINGERSTICK GLU 113 mg/dL High -106 [facility] Comment on above: Result Comment: OLGA GEMENT OF PATIENT CARE PER NURSING PROTOCOL Performed By: #### L 501.080 ####[facility] [address] [place], [address] FINGERSTICK GLU 166 mg/dL High 74-106 [facility] Comment on above: Result Comment: OLGA GEMENT OF PATIENT CARE PER NURSING PROTOCOL Performed By: #### L 501.080 ####[facility] [address] [place], [address] FINGERSTICK GLU 161 mg/dL High -106 [facility] Comment on above: Result Comment: OLGA GEMENT OF PATIENT CARE PER NURSING PROTOCOL Performed By: #### L 501.080 ####[facility] [address] [place], [address] Modified Barium Swallow Stud yon 09-19-2024 Modified Barium Swallow Study Normal [facility] Bedside Glucoseon 09-18-2024 FINGERSTICK GLU 152 mg/dL High 74-106 [facility] Comment on above: Result Comment: OLGA GEMENT OF PATIENT CARE PER NURSING PROTOCOL Performed By: #### L 501.080 ####[facility] [address] [place], [address] FINGERSTICK GLU 129 mg/dL High 74-106 [facility] Comment on above: Result Comment: OLGA GEMENT OF PATIENT CARE PER NURSING PROTOCOL Performed By: #### L 501.080 ####[facility] [address] [place], [address] FINGERSTICK GLU 195 mg/dL High 74-106 [facility] Comment on above: Result Comment: OLGA GEMENT OF PATIENT CARE PER NURSING PROTOCOL Performed By: #### L 501.080 ####[facility] [address] [place], [address] FINGERSTICK GLU 168 mg/dL High 74-106 [facility] Comment on above: Result Comment: OLGA GEMENT OF PATIENT CARE PER NURSING PROTOCOL Performed By: #### L 501.080 ####[facility] [address] [place], [address] Bedside Glucoseon 09-17-2024 FINGERSTICK GLU 110 mg/dL High -106 [facility] Comment on above: Result Comment: OLGA GEMENT OF PATIENT CARE PER NURSING PROTOCOL Performed By: #### L 501.080 ####[facility] [address] [place], [address] FINGERSTICK GLU 117 mg/dL High 74-106 [facility] Comment on above: Result Comment: OLGA GEMENT OF PATIENT CARE PER NURSING PROTOCOL Performed By: #### L 501.080 ####[facility] [address] [place], [address] FINGERSTICK GLU 98 mg/dL Normal 74-106 [facility] Comment on above: Result Comment: OLGA GEMENT OF PATIENT CARE PER NURSING PROTOCOL Performed By: #### L 501.080 ####[facility] [address] [place], [address] FINGERSTICK GLU 134 mg/dL High 74-106 [facility] Comment on above: Result Comment: OLGA GEMENT OF PATIENT CARE PER NURSING PROTOCOL Performed By: #### L 501.080 ####[facility] [address] [place], [address] FINGERSTICK GLU 113 mg/dL High 74-106 [facility] Comment on above: Result Comment: OLGA GEMENT OF PATIENT CARE PER NURSING PROTOCOL Performed By: #### L 501.080 ####[facility] [address] [place], [address] Bedside Glucoseon 09-16-2024 FINGERSTICK GLU 153 mg/dL High 74-106 [facility] Comment on above: Result Comment: OLGA GEMENT OF PATIENT CARE PER NURSING PROTOCOL Performed By: #### L 501.080 ####[facility] [address] [place], [address] FINGERSTICK GLU 177 mg/dL High 74-106 [facility] Comment on above: Result Comment: OLGA GEMENT OF PATIENT CARE PER NURSING PROTOCOL Performed By: #### L 501.080 ####[facility] [address] [place], [address] FINGERSTICK GLU 243 mg/dL High 74-106 [facility] Comment on above: Result Comment: OLGA GEMENT OF PATIENT CARE PER NURSING PROTOCOL Performed By: #### L 501.080 ####[facility] [address] [place], [address] FINGERSTICK GLU 130 mg/dL High 74-106 [facility] Comment on above: Result Comment: OLGA GEMENT OF PATIENT CARE PER NURSING PROTOCOL Performed By: #### L 501.080 ####[facility] [address] [place], [address] Basic Metabolic Profile (BMP )on 09-15-2024 BUN/CRE 18.8 RATIO Normal 10-20 [facility] Comment on above: Performed By: #### L 501.5200, L500.2500 ####[facility] [address] [place], [address] CA,Total 9.1 mg/dL Normal 8.5-10.1 [facility] Comment on above: Performed By: #### L 501.5200, L500.2500 ####[facility] [address] [place], [address] Chloride [Moles/Vol] 106 mmol/L Normal 98-107 [facility] Comment on above: Performed By: #### L 501.5200, L500.2500 ####[facility] [address] [place], [address] CO2 [Moles/Vol] 26.0 mmol/L Normal 21.0-32.0 [facility] Comment on above: Performed By: #### L 501.5200, L500.2500 ####[facility] [address] [place], [address] Creatinine [Mass/Vol] 0.80 mg/dL Normal 0.55-1.02 [facility] Comment on above: Result Comment: The validity of the calculated GFR GFRAA in patients over70 years has not been determined. Clinical correlation isessential. Performed By: #### L 501.5200, L500.2500 ####[facility] [address] [place], [address] ECRCL 48.73 ml/min Normal [facility] Comment on above: Performed By: #### L 501.5200, L500.2500 ####[facility] [address] [place], [address] EST GFR - AA 88 mL/min Normal >60 [facility] Comment on above: Result Comment: Afri can Latvian GFR Calc Performed By: #### L 501.5200, L500.2500 ####[facility] [address] [place], [address] GAP 8 Normal 5-15 [facility] Comment on above: Performed By: #### L 501.5200, L500.2500 ####[facility] [address] [place], [address] GFR/1.73 sq M.predicted among non-blacks MDRD (S/P/Bld) [Vol rate/Area] 73 mL/min/{1.73_m2} Normal >60 [facility] Comment on above: Result Comment: Non- GFR Calc Performed By: #### L 501.5200, L500.2500 ####[facility] [address] [place], [address] Glucose [Mass/Vol] 119 mg/dL High 74-106 [facility] Comment on above: Result Comment: Fast ing Glucose result from 100 to 125 mg/dLsuggests IMPAIRED HOMEOSTASIS per A.D.A. criteria. Performed By: #### L 501.5200, L500.2500 ####[facility] [address] [place], [address] Potassium [Moles/Vol] 4.2 mmol/L Normal 3.5-5.1 [facility] Comment on above: Performed By: #### L 501.5200, L500.2500 ####[facility] [address] [place], [address] Sodium [Moles/Vol] 140 mmol/L Normal 136-145 [facility] Comment on above: Performed By: #### L 501.5200, L500.2500 ####[facility] [address] [place], [address] Urea nitrogen [Mass/Vol] 15 mg/dL Normal 7-18 [facility] Comment on above: Performed By: #### L 501.5200, L500.2500 ####[facility] [address] [place], [address] Bedside Glucoseon 09-15-2024 FINGERSTICK GLU 185 mg/dL High 74-106 [facility] Comment on above: Result Comment: OLGA GEMENT OF PATIENT CARE PER NURSING PROTOCOL Performed By: #### L 501.080 ####[facility] [address] [place], [address] FINGERSTICK GLU 105 mg/dL Normal 74-106 [facility] Comment on above: Result Comment: OLGA GEMENT OF PATIENT CARE PER NURSING PROTOCOL Performed By: #### L 501.080 ####[facility] [address] [place], [address] FINGERSTICK GLU 185 mg/dL High 74-106 [facility] Comment on above: Result Comment: OLGA GEMENT OF PATIENT CARE PER NURSING PROTOCOL Performed By: #### L 501.080 ####[facility] [address] [place], [address] FINGERSTICK GLU 123 mg/dL High 74-106 [facility] Comment on above: Result Comment: OLGA GEMENT OF PATIENT CARE PER NURSING PROTOCOL Performed By: #### L 501.080 ####[facility] [address] [place], [address] HH, Hemoglobin AND Hematocri ton 09-15-2024 Hematocrit (Bld) [Volume fraction] 35.7 % Low 37-47 [facility] Comment on above: Performed By: #### L 100.0600 ####[facility] [address] [place], [address] Hemoglobin (Bld) [Mass/Vol] 12.0 g/dL Normal 12.0-15.0 [facility] Comment on above: Performed By: #### L 100.0600 ####[facility] [address] [place], [address] Magnesiumon 09-15-2024 Magnesium [Mass/Vol] 1.9 mg/dL Normal 1.6-2.6 [facility] Comment on above: Performed By: #### L 501.5200, L500.2500 ####[facility] [address] [place], [address] Bedside Glucoseon 09-14-2024 FINGERSTICK GLU 203 mg/dL High 74-106 [facility] Comment on above: Result Comment: OLGA GEMENT OF PATIENT CARE PER NURSING PROTOCOL Performed By: #### L 501.080 ####[facility] [address] [place], [address] FINGERSTICK GLU 92 mg/dL Normal 74-106 [facility] Comment on above: Result Comment: OLGA GEMENT OF PATIENT CARE PER NURSING PROTOCOL Performed By: #### L 501.080 ####[facility] [address] [place], [address] FINGERSTICK GLU 102 mg/dL Normal 74-106 [facility] Comment on above: Result Comment: OLGA GEMENT OF PATIENT CARE PER NURSING PROTOCOL Performed By: #### L 501.080 ####[facility] [address] [place], [address] FINGERSTICK GLU 221 mg/dL High 74-106 [facility] Comment on above: Result Comment: OLGA GEMENT OF PATIENT CARE PER NURSING PROTOCOL Performed By: #### L 501.080 ####[facility] [address] [place], [address] FINGERSTICK GLU 103 mg/dL Normal 74-106 [facility] Comment on above: Result Comment: OLGA GEMENT OF PATIENT CARE PER NURSING PROTOCOL Performed By: #### L 501.080 ####[facility] [address] [place], [address] Bedside Glucoseon 09-13-2024 FINGERSTICK GLU 144 mg/dL High 74-106 [facility] Comment on above: Result Comment: OLGA GEMENT OF PATIENT CARE PER NURSING PROTOCOL Performed By: #### L 501.080 ####[facility] [address] [place], [address] FINGERSTICK GLU 134 mg/dL High 74-106 [facility] Comment on above: Result Comment: OLGA GEMENT OF PATIENT CARE PER NURSING PROTOCOL Performed By: #### L 501.080 ####[facility] [address] [place], [address] FINGERSTICK GLU 143 mg/dL High 74-106 [facility] Comment on above: Result Comment: OLGA GEMENT OF PATIENT CARE PER NURSING PROTOCOL Performed By: #### L 501.080 ####[facility] [address] [place], [address] FINGERSTICK GLU 155 mg/dL High 74-106 [facility] Comment on above: Result Comment: OLGA GEMENT OF PATIENT CARE PER NURSING PROTOCOL Performed By: #### L 501.080 ####[facility] [address] [place], [address] Bedside Glucoseon 09-12-2024 FINGERSTICK GLU 90 mg/dL Normal 74-106 [facility] Comment on above: Result Comment: OLGA GEMENT OF PATIENT CARE PER NURSING PROTOCOL Performed By: #### L 501.080 ####[facility] [address] [place], [address] FINGERSTICK GLU 77 mg/dL Normal 74-106 [facility] Comment on above: Result Comment: OLGA GEMENT OF PATIENT CARE PER NURSING PROTOCOL Performed By: #### L 501.080 ####[facility] [address] [place], [address] FINGERSTICK GLU 98 mg/dL Normal 74-106 [facility] Comment on above: Result Comment: OLGA GEMENT OF PATIENT CARE PER NURSING PROTOCOL Performed By: #### L 501.080 ####[facility] [address] [place], [address] FINGERSTICK GLU 144 mg/dL High 74-106 [facility] Comment on above: Result Comment: OLGA GEMENT OF PATIENT CARE PER NURSING PROTOCOL Performed By: #### L 501.080 ####[facility] [address] [place], [address] FINGERSTICK GLU 137 mg/dL High 74-106 [facility] Comment on above: Result Comment: OLGA JASON OF PATIENT CARE PER NURSING PROTOCOL Performed By: #### L 501.080 ####[facility] [address] [place], [address] Metanephrine Frac 24 HR URon 09-12-2024 Metaneph,UR 24H 147 ug/24 hr Normal 36-209 [facility] Comment on above: Order Comment: Test( s) 248848-Xajjmzabakagzyk, Ur; 088241-Qrnphworebuo, Urwas developed and its performance characteristicsdetermined by [facility]. It has not been cleared or approvedby the Food and Drug Administration. Result Comment: Perf ormed at: [facility] [id number] Director: Toni Galicia MD, Phone: [phone] Performed By: #### L 3600.1100 ####[facility] [address] [place], [address] Metanephrines,U 64 ug/L Normal Undefined [facility] Comment on above: Order Comment: Test( s) 224827-Tcwsethikqkroaz, Ur; 764950-Bkgysnkrdmwd, Urwas developed and its performance characteristicsdetermined by [facility]. It has not been cleared or approvedby the Food and Drug Administration. Performed By: #### L 3600.1100 ####[facility] [address] [place], [address] Normetan,UR 24h 421 ug/24 hr Normal 131-612 [facility] Comment on above: Order Comment: Test( s) 345540-Eaembuagwsjyukd, Ur; 520768-Kdtcoekrsion, Urwas developed and its performance characteristicsdetermined by [facility]. It has not been cleared or approvedby the Food and Drug Administration. Performed By: #### L 3600.1100 ####[facility] [address] [place], [address] Normetanephrine 183 ug/L Normal Undefined [facility] Comment on above: Order Comment: Test( s) 422375-Xhzfxyfovqttwhv, Ur; 816112-Jakchczmhdit, Urwas developed and its performance characteristicsdetermined by [facility]. It has not been cleared or approvedby the Food and Drug Administration. Performed By: #### L 3600.1100 ####[facility] [address] [place], [address] Bedside Glucoseon 09-11-2024 FINGERSTICK GLU 228 mg/dL High [address] [place] [address] Comment on above: Result Comment: OLGA GEMENT OF PATIENT CARE PER NURSING PROTOCOL Performed By: #### L 501.080 ####[facility] [address] [place], [address] FINGERSTICK GLU 130 mg/dL High [address] [place] [address] Comment on above: Result Comment: OLGA GEMENT OF PATIENT CARE PER NURSING PROTOCOL Performed By: #### L 501.080 ####[facility] [address] [place], [address] FINGERSTICK GLU 149 mg/dL High [address] [place] [address] Comment on above: Result Comment: OLGA GEMENT OF PATIENT CARE PER NURSING PROTOCOL Performed By: #### L 501.080 ####[facility] [address] [place], [address] FINGERSTICK GLU 184 mg/dL High [address] [place] [address] Comment on above: Result Comment: OLGA GEMENT OF PATIENT CARE PER NURSING PROTOCOL Performed By: #### L 501.080 ####[facility] [address] [place], [address] Catecholamines, 24 URon -3 Dopamine, Urine 66 ug/L Normal Undefined [facility] Comment on above: Order Comment: Test( s) 969449-Otjlqdrnytb, Urine; 856887-Tbwskabjpqwpas, Ur; 123738-Ujoxskhm, Urinewas developed and its performance characteristicsdetermined by [facility]. It has not been cleared or approvedby the Food and Drug Administration. Performed By: #### L 3600.0150 ####[facility] [address] [place], [place], [address] Dopamine,U,24HR 152 ug/24 hr Normal 0-510 [facility] Comment on above: Order Comment: Test( s) 676278-Huniqkvppuc, Urine; 950614-Stthddhikrqyvs, Ur; 931126-Pvljelwf, Urinewas developed and its performance characteristicsdetermined by [facility]. It has not been cleared or approvedby the Food and Drug Administration. Result Comment: Perf ormed at: [address] [id number] Director: Toni Galicia MD, Phone: [phone] TESTING PERFORMED AT [facility]. ORIGINAL REPORT ON FILE IN LAB CONTAINS ADDITIONAL TEST SITE INFORMATION. Performed By: #### L 3600.0150 ####[facility] [address] [place], [place], [address] Epineph.,U,24HR 9 ug/24 hr Normal 0-20 [facility] Comment on above: Order Comment: Test( s) 537456-Nvlqsvcgkoh, Urine; 419882-Ojauuuwariaolo, Ur; 926294-Sarcewxh, Urinewas developed and its performance characteristicsdetermined by [facility]. It has not been cleared or approvedby the Food and Drug Administration. Performed By: #### L 3600.0150 ####[facility] [address] [place], [place], [phone] Epinephrine, U 4 ug/L Normal Undefined [facility] Comment on above: Order Comment: Test( s) 065366-Dozuwwdvfhr, Urine; 241826-Klwkngohczquij, Ur; 219443-Gardptnf, Urinewas developed and its performance characteristicsdetermined by [facility]. It has not been cleared or approvedby the Food and Drug Administration. Performed By: #### L 3600.0150 ####[facility] [address] [place], [address] Norepin.,U,24HR 64 ug/24 hr Normal 0-135 [facility] Comment on above: Order Comment: Test( s) 183995-Qkbkdghynet, Urine; 787686-Oitgcdznpisyhk, Ur; 950205-Cplfivxh, Urinewas developed and its performance characteristicsdetermined by [facility]. It has not been cleared or approvedby the Food and Drug Administration. Performed By: #### L 3600.0150 ####[facility] [address] [place], [address] Norepinephrin,U 28 ug/L Normal Undefined [facility] Comment on above: Order Comment: Test( s) 335102-Zeccxashstk, Urine; 443184-Sogldarcxziygx, Ur; 577251-Cuahboko, Urinewas developed and its performance characteristicsdetermined by [facility]. It has not been cleared or approvedby the Food and Drug Administration. Performed By: #### L 3600.0150 ####[facility] [address] [place], [address] Bedside Glucoseon 09-10-2024 FINGERSTICK GLU 133 mg/dL High 74-106 [facility] Comment on above: Result Comment: OLGA GEMENT OF PATIENT CARE PER NURSING PROTOCOL Performed By: #### L 501.080 ####[facility] [address] [place], [address] FINGERSTICK GLU 81 mg/dL Normal 74-106 [facility] Comment on above: Result Comment: OLGA GEMENT OF PATIENT CARE PER NURSING PROTOCOL Performed By: #### L 501.080 ####[facility] [address] [place], [address] FINGERSTICK GLU 57 mg/dL Low 74-106 [facility] Comment on above: Result Comment: OLGA GEMENT OF PATIENT CARE PER NURSING PROTOCOL Performed By: #### L 501.080 ####[facility] [address] [place], [address] FINGERSTICK GLU 208 mg/dL High 74-106 [facility] Comment on above: Result Comment: OLGA GEMENT OF PATIENT CARE PER NURSING PROTOCOL Performed By: #### L 501.080 ####[facility] [address] [place], [address] FINGERSTICK GLU 151 mg/dL High 74-106 [facility] Comment on above: Result Comment: OLGA GEMENT OF PATIENT CARE PER NURSING PROTOCOL Performed By: #### L 501.080 ####[facility] [address] [place], [address] Urine Cultureon 09-10-2024 URC Normal [facility] Comment on above: Performed By: #### M 100.2200 ####[facility] [address] [place], [address] Wound Cultureon 09-10-2024 WC Normal [facility] Comment on above: Performed By: #### M 100.3000, M100.2000 ####[facility] [address] [place], [address] Bedside Glucoseon 09-09-2024 FINGERSTICK GLU 157 mg/dL High 74-106 [facility] Comment on above: Result Comment: OLGA GEMENT OF PATIENT CARE PER NURSING PROTOCOL Performed By: #### L 501.080 ####[facility] [address] [place], [address] FINGERSTICK GLU 50 mg/dL Low 74-106 [facility] Comment on above: Result Comment: OLGA GEMENT OF PATIENT CARE PER NURSING PROTOCOL Performed By: #### L 501.080 ####[facility] [address] [place], [address] FINGERSTICK GLU 103 mg/dL Normal 74-106 [facility] Comment on above: Result Comment: OLGA GEMENT OF PATIENT CARE PER NURSING PROTOCOL Performed By: #### L 501.080 ####[facility] [address] [place], [address] FINGERSTICK GLU 181 mg/dL High 74-106 [facility] Comment on above: Result Comment: OLGA GEMENT OF PATIENT CARE PER NURSING PROTOCOL Performed By: #### L 501.080 ####[facility] [address] [place], [address] FINGERSTICK GLU 99 mg/dL Normal 74-106 [facility] Comment on above: Result Comment: OLGA GEMENT OF PATIENT CARE PER NURSING PROTOCOL Performed By: #### L 501.080 ####[facility] [address] [place], [address] FINGERSTICK GLU 245 mg/dL High 74-106 [facility] Comment on above: Result Comment: OLGA GEMENT OF PATIENT CARE PER NURSING PROTOCOL Performed By: #### L 501.080 ####[facility] [address] [place], [address] FINGERSTICK GLU 121 mg/dL High 74-106 [facility] Comment on above: Result Comment: OLGA GEMENT OF PATIENT CARE PER NURSING PROTOCOL Performed By: #### L 501.080 ####[facility] [address] [place], [address] Basic Metabolic Profile (BMP )on 09-08-2024 BUN/CRE 20.7 RATIO High 10-20 [facility] Comment on above: Performed By: #### L 501.2300, L100.0500, L500.2500, L501.5200 ####[facility] [address] [place], [address] CA,Total 9.6 mg/dL Normal 8.5-10.1 [facility] Comment on above: Performed By: #### L 501.2300, L100.0500, L500.2500, L501.5200 ####[facility] [address] [place], [address] Chloride [Moles/Vol] 102 mmol/L Normal 98-107 [facility] Comment on above: Performed By: #### L 501.2300, L100.0500, L500.2500, L501.5200 ####[facility] [address] [place], [address] CO2 [Moles/Vol] 26.0 mmol/L Normal 21.0-32.0 [facility] Comment on above: Performed By: #### L 501.2300, L100.0500, L500.2500, L501.5200 ####[facility] [address] [place], [address] Creatinine [Mass/Vol] 0.82 mg/dL Normal 0.55-1.02 [facility] Comment on above: Result Comment: The validity of the calculated GFR GFRAA in patients over70 years has not been determined. Clinical correlation isessential. Performed By: #### L 501.2300, L100.0500, L500.2500, L501.5200 ####[facility] [address] [place], [address] ECRCL 47.91 ml/min Normal [facility] Comment on above: Performed By: #### L 501.2300, L100.0500, L500.2500, L501.5200 ####[facility] [address] [place], [address] EST GFR - AA 86 mL/min Normal >60 [facility] Comment on above: Result Comment: Afri can [place]ian GFR Calc Performed By: #### L 501.2300, L100.0500, L500.2500, L501.5200 ####[facility] [address] [place], [address] GAP 10 Normal 5-15 [facility] Comment on above: Performed By: #### L 501.2300, L100.0500, L500.2500, L501.5200 ####[facility] [address] [place], [address] GFR/1.73 sq M.predicted among non-blacks MDRD (S/P/Bld) [Vol rate/Area] 71 mL/min/{1.73_m2} Normal >60 [facility] Comment on above: Result Comment: Non- GFR Calc Performed By: #### L 501.2300, L100.0500, L500.2500, L501.5200 ####[facility] [address] [place], [address] Glucose [Mass/Vol] 188 mg/dL High 74-106 [facility] Comment on above: Result Comment: Fast ing Glucose result greater than or equal to 126 mg/dLsuggests DIABETES MELLITUS per A.D.A. criteria. Performed By: #### L 501.2300, L100.0500, L500.2500, L501.5200 ####[facility] [address] [place], [address] Potassium [Moles/Vol] 4.4 mmol/L Normal 3.5-5.1 [facility] Comment on above: Performed By: #### L 501.2300, L100.0500, L500.2500, L501.5200 ####[facility] [address] [place], [address] Sodium [Moles/Vol] 138 mmol/L Normal 136-145 [facility] Comment on above: Performed By: #### L 501.2300, L100.0500, L500.2500, L501.5200 ####[facility] [address] [place], [address] Urea nitrogen [Mass/Vol] 17 mg/dL Normal 7-18 [facility] Comment on above: Performed By: #### L 501.2300, L100.0500, L500.2500, L501.5200 ####[facility] [address] [place], [address] Bedside Glucoseon 09-08-2024 FINGERSTICK GLU 182 mg/dL High 74-106 [facility] Comment on above: Result Comment: OLGA GEMENT OF PATIENT CARE PER NURSING PROTOCOL Performed By: #### L 501.080 ####[facility] [address] [place], [address] FINGERSTICK GLU 260 mg/dL High 74-106 [facility] Comment on above: Result Comment: OLGA GEMENT OF PATIENT CARE PER NURSING PROTOCOL Performed By: #### L 501.080 ####[facility] [address] [place], [address] FINGERSTICK GLU 265 mg/dL High 74-106 [facility] Comment on above: Result Comment: OLGA GEMENT OF PATIENT CARE PER NURSING PROTOCOL Performed By: #### L 501.080 ####[facility] [address] [place], [address] FINGERSTICK GLU 205 mg/dL High 74-106 [facility] Comment on above: Result Comment: OLGA GEMENT OF PATIENT CARE PER NURSING PROTOCOL Performed By: #### L 501.080 ####[facility] [address] [place], [address] FINGERSTICK GLU 165 mg/dL High 74-106 [facility] Comment on above: Result Comment: OLGA GEMENT OF PATIENT CARE PER NURSING PROTOCOL Performed By: #### L 501.080 ####[facility] [address] [place], [address] CBC-Complete Blood Cnt No Di ffon 09-08-2024 Erythrocyte distribution width (RBC) [Ratio] 13.2 % Normal 11.6-14.6 [facility] Comment on above: Performed By: #### L 501.2300, L100.0500, L500.2500, L501.5200 ####[facility] [address] [place], [address] Hematocrit (Bld) [Volume fraction] 36.2 % Low 37-47 [facility] Comment on above: Performed By: #### L 501.2300, L100.0500, L500.2500, L501.5200 ####[facility] [address] [place], [address] Hemoglobin (Bld) [Mass/Vol] 12.1 g/dL Normal 12.0-15.0 [facility] Comment on above: Performed By: #### L 501.2300, L100.0500, L500.2500, L501.5200 ####[facility] [address] [place], [address] MCH (RBC) [Entitic mass] 31.3 pg Normal 27.0-32.0 [facility] Comment on above: Performed By: #### L 501.2300, L100.0500, L500.2500, L501.5200 ####[facility] [address] [place], [address] MCHC (RBC) [Mass/Vol] 33.4 g/dL Normal 32-36 [facility] Comment on above: Performed By: #### L 501.2300, L100.0500, L500.2500, L501.5200 ####[facility] [address] [place], [address] MCV (RBC) [Entitic vol] 93.8 fL Normal 81-99 [facility] Comment on above: Performed By: #### L 501.2300, L100.0500, L500.2500, L501.5200 ####[facility] [address] [place], [address] Platelet mean volume (Bld) [Entitic vol] 9.6 fL Normal 6.2-12.0 [facility] Comment on above: Performed By: #### L 501.2300, L100.0500, L500.2500, L501.5200 ####[facility] [address] [place], [address] Platelets (Bld) [#/Vol] 312 10*3/uL Normal 150-450 [facility] Comment on above: Performed By: #### L 501.2300, L100.0500, L500.2500, L501.5200 ####[facility] [address] [place], [address] RBC (Bld) [#/Vol] 3.86 10*6/uL Low 4.2-5.4 [facility] Comment on above: Performed By: #### L 501.2300, L100.0500, L500.2500, L501.5200 ####[facility] [address] [place], [address] RDW SD 44.8 fl High 35.1-43.9 [facility] Comment on above: Performed By: #### L 501.2300, L100.0500, L500.2500, L501.5200 ####[facility] [address] [place], [address] WBC (Bld) [#/Vol] 9.6 10*3/uL Normal 4.4-11.0 [facility] Comment on above: Performed By: #### L 501.2300, L100.0500, L500.2500, L501.5200 ####[facility] [address] [place], [address] Gram Stainon 09-08-2024 GS peg site Gram Stain 4+ Gram negative rods No Epithelial cells 1+ Red Blood Cells Normal [facility] Comment on above: Performed By: #### M 100.3000, M100.2000 ####[facility] [address] [place], [address] Magnesiumon 09-08-2024 Magnesium [Mass/Vol] 1.8 mg/dL Normal 1.6-2.6 [facility] Comment on above: Performed By: #### L 501.2300, L100.0500, L500.2500, L501.5200 ####[facility] [address] [place], [address] Phosphoruson 09-08-2024 Phosphate [Mass/Vol] 4.8 mg/dL Normal 2.5-4.9 [facility] Comment on above: Performed By: #### L 501.2300, L100.0500, L500.2500, L501.5200 ####[facility] [address] [place], [address] Urinalysis, Completeon 09-08 RBC 0-5 SEEN Normal 0-5 [facility] Comment on above: Order Comment: KEYANA TER SPECIMEN Performed By: #### L 400.0001 ####[facility] [address] [place], [address] BACTERIA 2+ /hpf Normal None Seen [facility] Comment on above: Order Comment: KEYANA TER SPECIMEN Performed By: #### L 400.0001 ####[facility] [address] [place], [address] WBC >100 SEEN Normal 0-5 [facility] Comment on above: Order Comment: KEYANA TER SPECIMEN Performed By: #### L 400.0001 ####[facility] [address] [place], [address] EPI,SQUAMOUS 0 SEEN Normal 5-10 [facility] Comment on above: Order Comment: KEYANA TER SPECIMEN Performed By: #### L 400.0001 ####[facility] [address] [place], [address] Mucus Ql (Urine sed) 0 SEEN Normal [facility] Comment on above: Order Comment: KEYANA TER SPECIMEN Performed By: #### L 400.0001 ####[facility] [address] [place], [address] Bedside Glucoseon 09-07-2024 FINGERSTICK GLU 244 mg/dL High 74-106 [facility] Comment on above: Result Comment: OLGA GEMENT OF PATIENT CARE PER NURSING PROTOCOL Performed By: #### L 501.080 ####[facility] [address] [place], [address] FINGERSTICK GLU 228 mg/dL High 74-106 [facility] Comment on above: Result Comment: OLGA GEMENT OF PATIENT CARE PER NURSING PROTOCOL Performed By: #### L 501.080 ####[facility] [address] [place], [address] FINGERSTICK GLU 278 mg/dL High 74-106 [facility] Comment on above: Result Comment: OLGA GEMENT OF PATIENT CARE PER NURSING PROTOCOL Performed By: #### L 501.080 ####[facility] [address] [place], [address] FINGERSTICK GLU 215 mg/dL High 74-106 [facility] Comment on above: Result Comment: OLGA GEMENT OF PATIENT CARE PER NURSING PROTOCOL Performed By: #### L 501.080 ####[facility] [address] [place], [address] FINGERSTICK GLU 277 mg/dL High 74-106 [facility] Comment on above: Result Comment: OLGA GEMENT OF PATIENT CARE PER NURSING PROTOCOL Performed By: #### L 501.080 ####[facility] [address] [place], [address] FINGERSTICK GLU 232 mg/dL High 74-106 [facility] Comment on above: Result Comment: OLGA GEMENT OF PATIENT CARE PER NURSING PROTOCOL Performed By: #### L 501.080 ####[facility] [address] [place], [address] FINGERSTICK GLU 114 mg/dL High 74-106 [facility] Comment on above: Result Comment: OLGA GEMENT OF PATIENT CARE PER NURSING PROTOCOL Performed By: #### L 501.080 ####[facility] [address] [place], [address] Bedside Glucoseon 09-06-2024 FINGERSTICK GLU 197 mg/dL High -106 [facility] Comment on above: Result Comment: OLGA GEMENT OF PATIENT CARE PER NURSING PROTOCOL Performed By: #### L 501.080 ####[facility] [address] [place], [address] FINGERSTICK GLU 221 mg/dL High -106 [facility] Comment on above: Result Comment: OLGA GEMENT OF PATIENT CARE PER NURSING PROTOCOL Performed By: #### L 501.080 ####[facility] [address] [place], [address] FINGERSTICK GLU 238 mg/dL High -106 [facility] Comment on above: Result Comment: OLGA GEMENT OF PATIENT CARE PER NURSING PROTOCOL Performed By: #### L 501.080 ####[facility] [address] [place], [address] FINGERSTICK GLU 209 mg/dL High -106 [facility] Comment on above: Result Comment: OLGA GEMENT OF PATIENT CARE PER NURSING PROTOCOL Performed By: #### L 501.080 ####[facility] [address] [place], [address] FINGERSTICK GLU 171 mg/dL High 74-106 [facility] Comment on above: Result Comment: OLGA GOMEZ OF PATIENT CARE PER NURSING PROTOCOL Performed By: #### L 501.080 ####[facility] [address] [place], [address] Basic Metabolic Profile (BMP )on 09-05-2024 BUN Normal 7-18 [facility] Comment on above: Result Comment: Canc elled via OM: Order cancelled - Patient discharged Performed By: #### L 500.2500, L100.0100 ####[facility] [address] [place], [address] BUN/CRE Normal 10-20 [facility] Comment on above: Result Comment: Canc elled via OM: Order cancelled - Patient discharged Performed By: #### L 500.2500, L100.0100 ####[facility] [address] [place], [address] CA,Total Normal 8.5-10.1 [facility] Comment on above: Result Comment: Canc elled via OM: Order cancelled - Patient discharged Performed By: #### L 500.2500, L100.0100 ####[facility] [address] [place], [address] CL Normal 98-107 [facility] Comment on above: Result Comment: Canc elled via OM: Order cancelled - Patient discharged Performed By: #### L 500.2500, L100.0100 ####[facility] [address] [place], [address] CO2 Normal 21.0-32.0 [facility] Comment on above: Result Comment: Canc elled via OM: Order cancelled - Patient discharged Performed By: #### L 500.2500, L100.0100 ####[facility] [address] [place], [address] CREAT,SERUM Normal 0.55-1.02 [facility] Comment on above: Result Comment: Canc elled via OM: Order cancelled - Patient discharged Performed By: #### L 500.2500, L100.0100 ####[facility] [address] [place], [address] EST GFR Normal >60 [facility] Comment on above: Result Comment: Canc elled via OM: Order cancelled - Patient discharged Performed By: #### L 500.2500, L100.0100 ####[facility] [address] [place], [address] EST GFR - AA Normal >60 [facility] Comment on above: Result Comment: Canc elled via OM: Order cancelled - Patient discharged Performed By: #### L 500.2500, L100.0100 ####[facility] [address] [place], [address] GAP Normal 5-15 [facility] Comment on above: Result Comment: Canc elled via OM: Order cancelled - Patient discharged Performed By: #### L 500.2500, L100.0100 ####[facility] [address] [place], [address] GLU Normal 74-106 [facility] Comment on above: Result Comment: Canc elled via OM: Order cancelled - Patient discharged Performed By: #### L 500.2500, L100.0100 ####[facility] [address] [place], [address] Potassium Normal 3.5-5.1 [facility] Comment on above: Result Comment: Canc elled via OM: Order cancelled - Patient discharged Performed By: #### L 500.2500, L100.0100 ####[facility] [address] [place], [address] Basic Metabolic Profile (BMP) Normal 136-145 [facility] Comment on above: Result Comment: Canc elled via OM: Order cancelled - Patient discharged Performed By: #### L 500.2500, L100.0100 ####[facility] [address] [place], [address] Bedside Glucoseon 09-05-2024 FINGERSTICK GLU 209 mg/dL High -106 [facility] Comment on above: Result Comment: OLGA GEMENT OF PATIENT CARE PER NURSING PROTOCOL Performed By: #### L 501.080 ####[facility] [address] [place], [address] FINGERSTICK GLU 265 mg/dL High [facility]106 [facility] Comment on above: Result Comment: OLGA GEMENT OF PATIENT CARE PER NURSING PROTOCOL Performed By: #### L 501.080 ####[facility] [address] [place], [address] FINGERSTICK GLU 203 mg/dL High [address] [place] [address] Comment on above: Result Comment: OLGA GEMENT OF PATIENT CARE PER NURSING PROTOCOL Performed By: #### L 501.080 ####[facility] [address] [place], [address] FINGERSTICK GLU 215 mg/dL High [facility]106 [facility] Comment on above: Result Comment: OLGA GEMENT OF PATIENT CARE PER NURSING PROTOCOL Performed By: #### L 501.080 ####[facility] [address] [place], [address] FINGERSTICK GLU 224 mg/dL High -106 [facility] Comment on above: Result Comment: OLGA GEMENT OF PATIENT CARE PER NURSING PROTOCOL Performed By: #### L 501.080 ####[facility] [address] [place], [address] CBC W/Diff, Automatedon 08-14 Absolute Neut Normal 2.0-7.7 [facility] Comment on above: Result Comment: Canc elled via OM: Order cancelled - Patient discharged Performed By: #### L 500.2500, L100.0100 ####[facility] [address] [place], [address] HCT Normal 37-47 [facility] Comment on above: Result Comment: Canc elled via OM: Order cancelled - Patient discharged Performed By: #### L 500.2500, L100.0100 ####[facility] [address] [place], [address] HGB Normal 12.0-15.0 [facility] Comment on above: Result Comment: Canc elled via OM: Order cancelled - Patient discharged Performed By: #### L 500.2500, L100.0100 ####[facility] [address] [place], [address] MCH Normal 27.0-32.0 [facility] Comment on above: Result Comment: Canc elled via OM: Order cancelled - Patient discharged Performed By: #### L 500.2500, L100.0100 ####[facility] [address] [place], [address] MCHC Normal 32-36 [facility] Comment on above: Result Comment: Canc elled via OM: Order cancelled - Patient discharged Performed By: #### L 500.2500, L100.0100 ####[facility] [address] [place], [address] MCV Normal 81-99 [facility] Comment on above: Result Comment: Canc elled via OM: Order cancelled - Patient discharged Performed By: #### L 500.2500, L100.0100 ####[facility] [address] [place], [address] NEUT% Normal 47-70 [facility] Comment on above: Result Comment: Canc elled via OM: Order cancelled - Patient discharged Performed By: #### L 500.2500, L100.0100 ####[facility] [address] [place], [address] PLT Normal 150-450 [facility] Comment on above: Result Comment: Canc elled via OM: Order cancelled - Patient discharged Performed By: #### L 500.2500, L100.0100 ####[facility] [address] [place], [address] RBC Normal 4.2-5.4 [facility] Comment on above: Result Comment: Canc elled via OM: Order cancelled - Patient discharged Performed By: #### L 500.2500, L100.0100 ####[facility] [address] [place], [address] RDW CV Normal 11.6-14.6 [facility] Comment on above: Result Comment: Canc elled via OM: Order cancelled - Patient discharged Performed By: #### L 500.2500, L100.0100 ####[facility] [address] [place], [address] RDW SD Normal 35.1-43.9 [facility] Comment on above: Result Comment: Canc elled via OM: Order cancelled - Patient discharged Performed By: #### L 500.2500, L100.0100 ####[facility] [address] [place], [address] WBC Normal 4.4-11.0 [facility] Comment on above: Result Comment: Canc elled via OM: Order cancelled - Patient discharged Performed By: #### L 500.2500, L100.0100 ####[facility] [address] [place], [address] Bedside Glucoseon 09-04-2024 FINGERSTICK GLU 233 mg/dL High 74-106 [facility] Comment on above: Result Comment: OLGA GOMEZ OF PATIENT CARE PER NURSING PROTOCOL Performed By: #### L 501.080 ####[facility] [address] [place], [address] FINGERSTICK GLU 366 mg/dL High 74-106 [facility] Comment on above: Result Comment: OLGA GEMENT OF PATIENT CARE PER NURSING PROTOCOL Performed By: #### L 501.080 ####[facility] [address] [place], [address] FINGERSTICK GLU 302 mg/dL High [address] [place] [address] Comment on above: Result Comment: OLGA GEMENT OF PATIENT CARE PER NURSING PROTOCOL Performed By: #### L 501.080 ####[facility] [address] [place], [address] FINGERSTICK GLU 344 mg/dL High [address] [place] [address] Comment on above: Result Comment: OLGA GEMENT OF PATIENT CARE PER NURSING PROTOCOL Performed By: #### L 501.080 ####[facility] [address] [place], [address] FINGERSTICK GLU 312 mg/dL [address] Comment on above: Result Comment: OLGA GEMENT OF PATIENT CARE PER NURSING PROTOCOL Performed By: #### L 501.080 ####[facility] [address] [place], [address] Bedside Glucoseon 09-03-2024 FINGERSTICK GLU 277 mg/dL [address] Comment on above: Result Comment: OLGA GEMENT OF PATIENT CARE PER NURSING PROTOCOL Performed By: #### L 501.080 ####[facility] [address] [place], [address] FINGERSTICK GLU 283 mg/dL [address] Comment on above: Result Comment: OLGA GEMENT OF PATIENT CARE PER NURSING PROTOCOL Performed By: #### L 501.080 ####[facility] [address] [place], [address] FINGERSTICK GLU 251 mg/dL High [address] [place] [address] Comment on above: Result Comment: OLGA GEMENT OF PATIENT CARE PER NURSING PROTOCOL Performed By: #### L 501.080 ####[facility] [address] [place], [address] FINGERSTICK GLU 234 mg/dL High 74-106 [facility] Comment on above: Result Comment: OLGA GEMENT OF PATIENT CARE PER NURSING PROTOCOL Performed By: #### L 501.080 ####[facility] [address] [place], [address] FINGERSTICK GLU 263 mg/dL High 74-106 [facility] Comment on above: Result Comment: OLGA GEMENT OF PATIENT CARE PER NURSING PROTOCOL Performed By: #### L 501.080 ####[facility] [address] [place], [address] Basic Metabolic Profile (BMP )on 09-02-2024 BUN/CRE 14.7 RATIO Normal 10-20 [facility] Comment on above: Performed By: #### L 100.0600, L500.2500 ####[facility] [address] [place], [address] CA,Total 9.3 mg/dL Normal 8.5-10.1 [facility] Comment on above: Performed By: #### L 100.0600, L500.2500 ####[facility] [address] [place], [address] Chloride [Moles/Vol] 105 mmol/L Normal 98-107 [facility] Comment on above: Performed By: #### L 100.0600, L500.2500 ####[facility] [address] [place], [address] CO2 [Moles/Vol] 24.0 mmol/L Normal 21.0-32.0 [facility] Comment on above: Performed By: #### L 100.0600, L500.2500 ####[facility] [address] [place], [address] Creatinine [Mass/Vol] 0.75 mg/dL Normal 0.55-1.02 [facility] Comment on above: Result Comment: The validity of the calculated GFR GFRAA in patients over70 years has not been determined. Clinical correlation isessential. Performed By: #### L 100.0600, L500.2500 ####[facility] [address] [place], [address] ECRCL 49.35 ml/min Normal [facility] Comment on above: Performed By: #### L 100.0600, L500.2500 ####[facility] [address] [place], [address] EST GFR - AA 96 mL/min Normal >60 [facility] Comment on above: Result Comment: Afri can Latvian GFR Calc Performed By: #### L 100.0600, L500.2500 ####[facility] [address] [place], [address] GAP 8 Normal 5-15 [facility] Comment on above: Performed By: #### L 100.0600, L500.2500 ####[facility] [address] [place], [address] GFR/1.73 sq M.predicted among non-blacks MDRD (S/P/Bld) [Vol rate/Area] 79 mL/min/{1.73_m2} Normal >60 [facility] Comment on above: Result Comment: Non- GFR Calc Performed By: #### L 100.0600, L500.2500 ####[facility] [address] [place], [address] Glucose [Mass/Vol] 380 mg/dL High 74-106 [facility] Comment on above: Result Comment: Gluc ose result greater than or equal to 200 mg/dLsuggests DIABETES MELLITUS per A.D.A. criteria. Performed By: #### L 100.0600, L500.2500 ####[facility] [address] [place], [address] Potassium [Moles/Vol] 3.9 mmol/L Normal 3.5-5.1 [facility] Comment on above: Performed By: #### L 100.0600, L500.2500 ####[facility] [address] [place], [address] Sodium [Moles/Vol] 137 mmol/L Normal 136-145 [facility] Comment on above: Performed By: #### L 100.0600, L500.2500 ####[facility] [address] [place], [address] Urea nitrogen [Mass/Vol] 11 mg/dL Normal 7-18 [facility] Comment on above: Performed By: #### L 100.0600, L500.2500 ####[facility] [address] [place], [address] Bedside Glucoseon 09-02-2024 FINGERSTICK GLU 261 mg/dL High 74-106 [facility] Comment on above: Result Comment: OLGA GEMENT OF PATIENT CARE PER NURSING PROTOCOL Performed By: #### L 501.080 ####[facility] [address] [place], [address] FINGERSTICK GLU 320 mg/dL High 74-106 [facility] Comment on above: Result Comment: OLGA GEMENT OF PATIENT CARE PER NURSING PROTOCOL Performed By: #### L 501.080 ####[facility] [address] [place], [address] FINGERSTICK GLU 338 mg/dL High 74-106 [facility] Comment on above: Result Comment: OLGA GEMENT OF PATIENT CARE PER NURSING PROTOCOL Performed By: #### L 501.080 ####[facility] [address] [place], [address] FINGERSTICK GLU 368 mg/dL High 74-106 [facility] Comment on above: Result Comment: OLGA GEMENT OF PATIENT CARE PER NURSING PROTOCOL Performed By: #### L 501.080 ####[facility] [address] [place], [address] FINGERSTICK GLU 287 mg/dL High 74-106 [facility] Comment on above: Result Comment: OLGA GEMENT OF PATIENT CARE PER NURSING PROTOCOL Performed By: #### L 501.080 ####[facility] [address] [place], [address] HH, Hemoglobin AND Hematocri ton 09-02-2024 Hematocrit (Bld) [Volume fraction] 36.7 % Low 37-47 [facility] Comment on above: Performed By: #### L 100.0600, L500.2500 ####[facility] [address] [place], [address] Hemoglobin (Bld) [Mass/Vol] 12.7 g/dL Normal 12.0-15.0 [facility] Comment on above: Performed By: #### L 100.0600, L500.2500 ####[facility] [address] [place], [address] Urine Cultureon 09-02-2024 URC Yeast, not Shanna a lbicans [place] Count 25,000-50,000 Normal [facility] Comment on above: Performed By: #### M 100.2200 ####[facility] [address] [place], [address] Bedside Glucoseon 09-01-2024 FINGERSTICK GLU 301 mg/dL High 74-106 [facility] Comment on above: Result Comment: OLGA GEMENT OF PATIENT CARE PER NURSING PROTOCOL Performed By: #### L 501.080 ####[facility] [address] [place], [address] FINGERSTICK GLU 349 mg/dL High 74-106 [facility] Comment on above: Result Comment: OLGA GEMENT OF PATIENT CARE PER NURSING PROTOCOL Performed By: #### L 501.080 ####[facility] [address] [place], [address] FINGERSTICK GLU 240 mg/dL High 74-106 [facility] Comment on above: Result Comment: OLGA GEMENT OF PATIENT CARE PER NURSING PROTOCOL Performed By: #### L 501.080 ####[facility] [address] [place], [address] FINGERSTICK GLU 333 mg/dL High [address] [facility] Comment on above: Result Comment: OLGA GEMENT OF PATIENT CARE PER NURSING PROTOCOL Performed By: #### L 501.080 ####[facility] [address] [place], [address] FINGERSTICK GLU 222 mg/dL High -106 [facility] Comment on above: Result Comment: OLGA GEMENT OF PATIENT CARE PER NURSING PROTOCOL Performed By: #### L 501.080 ####[facility] [address] [place], [address] FINGERSTICK GLU 268 mg/dL High [address] [place] [address] Comment on above: Result Comment: OLGA GEMENT OF PATIENT CARE PER NURSING PROTOCOL Performed By: #### L 501.080 ####[facility] [address] [place], [address] Blood Gases by [facility] 025 Base excess Calc (Bld) [Moles/Vol] -3 mmol/L Low -2 to +2 [facility] Comment on above: Performed By: #### L 9000.0800 ####[facility] [address] [place], [address] Blood Gas Type ART Normal [facility] Comment on above: Performed By: #### L 9000.0800 ####[facility] [address] [place], [address] CO2 [Moles/Vol] 23 mmol/L Normal [facility] Comment on above: Performed By: #### L 9000.0800 ####[facility] [address] [place], [address] FI02 21.0 Normal [facility] Comment on above: Performed By: #### L 8999.08 ####[facility] [address] [place], [address] HCO3 (Bld) [Moles/Vol] 21.7 mmol/L Low 22-26 [facility] Comment on above: Performed By: #### L 8999.0800 ####[facility] [address] [place], [address] Mode Not entered [facility] Comment on above: Performed By: #### L 8999.0800 ####[facility] [address] [place], [address] O2 Delivery Dev Not entered [facility] Comment on above: Performed By: #### L 8999.0800 ####[facility] [address] [place], [address] pCO2 35.5 mmHg Normal 35-45 [facility] Comment on above: Performed By: #### L 8999.0800 ####[facility] [address] [place], [address] pH (Bld) 7.39 [pH] Normal 7.35-7.45 [facility] Comment on above: Performed By: #### L 8999.08 ####[facility] [address] [place], [address] PO2 69 mmHG Low 75-100 [facility] Comment on above: Performed By: #### L 8999.0800 ####[facility] [address] [place], [address] SITE L Brach Normal [facility] Comment on above: Performed By: #### L 8999.0800 ####[facility] [address] [place], [address] SO2 94 Low 95-99 [facility] Comment on above: Performed By: #### L 9000.0800 ####[facility] [address] [place], [address] Bedside Glucoseon 08-31-2024 FINGERSTICK GLU 222 mg/dL High 74-106 [facility] Comment on above: Result Comment: OLGA GEMENT OF PATIENT CARE PER NURSING PROTOCOL Performed By: #### L 501.080 ####[facility] [address] [place], [address] FINGERSTICK GLU 335 mg/dL High [address] [place] [address] Comment on above: Result Comment: OLGA GEMENT OF PATIENT CARE PER NURSING PROTOCOL Performed By: #### L 501.080 ####[facility] [address] [place], [address] FINGERSTICK GLU 284 mg/dL High -[address] [place] [address] Comment on above: Result Comment: OLGA GEMENT OF PATIENT CARE PER NURSING PROTOCOL Performed By: #### L 501.080 ####[facility] [address] [place], [address] Bedside Glucoseon 5 FINGERSTICK GLU 232 mg/dL High -[address] [place] [address] Comment on above: Result Comment: OLGA GEMENT OF PATIENT CARE PER NURSING PROTOCOL Performed By: #### L 501.080 ####[facility] [address] [place], [address] FINGERSTICK GLU 289 mg/dL High 74-106 [facility] Comment on above: Result Comment: OLGA GEMENT OF PATIENT CARE PER NURSING PROTOCOL Performed By: #### L 501.080 ####[facility] [address] [place], [address] FINGERSTICK GLU 251 mg/dL High -106 [facility] Comment on above: Result Comment: OLGA GEMENT OF PATIENT CARE PER NURSING PROTOCOL Performed By: #### L 501.080 ####[facility] [address] [place], [address] FINGERSTICK GLU 335 mg/dL High 74-106 [facility] Comment on above: Result Comment: OLGA GEMENT OF PATIENT CARE PER NURSING PROTOCOL Performed By: #### L 501.080 ####[facility] [address] [place], [address] FINGERSTICK GLU 310 mg/dL High 74-106 [facility] Comment on above: Result Comment: OLGA GEMENT OF PATIENT CARE PER NURSING PROTOCOL Performed By: #### L 501.080 ####[facility] [address] [place], [address] CBC W/Diff, Automatedon 08-13 Absolute Lymph 1.02 X10 3/uL Normal 0.83-4.51 [facility] Comment on above: Performed By: #### L 501.2300, L500.4050, L501.5200, L506.0400, L100.0100 ####[facility] [address] [place], [address] Absolute Neut 5.0 X10 3/uL Normal 2.0-7.7 [facility] Comment on above: Performed By: #### L 501.2300, L500.4050, L501.5200, L506.0400, L100.0100 ####[facility] [address] [place], [address] Basophils/100 WBC (Bld) 0.7 % Normal 0-1 [facility] Comment on above: Performed By: #### L 501.2300, L500.4050, L501.5200, L506.0400, L100.0100 ####[facility] [address] [place], [address] Eosinophils/100 WBC (Bld) 4.5 % Normal 0-5 [facility] Comment on above: Performed By: #### L 501.2300, L500.4050, L501.5200, L506.0400, L100.0100 ####[facility] [address] [place], [address] Erythrocyte distribution width (RBC) [Ratio] 13.4 % Normal 11.6-14.6 [facility] Comment on above: Performed By: #### L 501.2300, L500.4050, L501.5200, L506.0400, L100.0100 ####[facility] [address] [place], [address] Hematocrit (Bld) [Volume fraction] 32.3 % Low 37-47 [facility] Comment on above: Performed By: #### L 501.2300, L500.4050, L501.5200, L506.0400, L100.0100 ####[facility] [address] [place], [address] Hemoglobin (Bld) [Mass/Vol] 10.6 g/dL Low 12.0-15.0 [facility] Comment on above: Performed By: #### L 501.2300, L500.4050, L501.5200, L506.0400, L100.0100 ####[facility] [address] [place], [address] IG% 0.700 Normal 0.0-0.9 [facility] Comment on above: Result Comment: IG% - Immature Granulocytes (promyelocytes, myelocytes andmetamyelocytes) > 1% indicates that a LEFT SHIFT is Present. Performed By: #### L 501.2300, L500.4050, L501.5200, L506.0400, L100.0100 ####[facility] [address] [place], [address] Lymphocytes/100 WBC (Bld) 13.9 % Low 19-41 [facility] Comment on above: Performed By: #### L 501.2300, L500.4050, L501.5200, L506.0400, L100.0100 ####[facility] [address] [place], [address] MCH (RBC) [Entitic mass] 31.4 pg Normal 27.0-32.0 [facility] Comment on above: Performed By: #### L 501.2300, L500.4050, L501.5200, L506.0400, L100.0100 ####[facility] [address] [place], [address] MCHC (RBC) [Mass/Vol] 32.8 g/dL Normal 32-36 [facility] Comment on above: Performed By: #### L 501.2300, L500.4050, L501.5200, L506.0400, L100.0100 ####[facility] [address] [place], [address] MCV (RBC) [Entitic vol] 95.6 fL Normal 81-99 [facility] Comment on above: Performed By: #### L 501.2300, L500.4050, L501.5200, L506.0400, L100.0100 ####[facility] [address] [place], [address] Monocytes/100 WBC (Bld) 12.2 % High 0-10 [facility] Comment on above: Performed By: #### L 501.2300, L500.4050, L501.5200, L506.0400, L100.0100 ####[facility] [address] [place], [address] Neutrophils/100 WBC (Bld) 68.0 % Normal 47-70 [facility] Comment on above: Performed By: #### L 501.2300, L500.4050, L501.5200, L506.0400, L100.0100 ####[facility] [address] [place], [address] Nucleated RBC (Bld) [#/Vol] 0 10*3/uL Normal 0-5 [facility] Comment on above: Performed By: #### L 501.2300, L500.4050, L501.5200, L506.0400, L100.0100 ####[facility] [address] [place], [address] Platelet mean volume (Bld) [Entitic vol] 9.8 fL Normal 6.2-12.0 [facility] Comment on above: Performed By: #### L 501.2300, L500.4050, L501.5200, L506.0400, L100.0100 ####[facility] [address] [place], [address] Platelets (Bld) [#/Vol] 258 10*3/uL Normal 150-450 [facility] Comment on above: Performed By: #### L 501.2300, L500.4050, L501.5200, L506.0400, L100.0100 ####[facility] [address] [place], [address] RBC (Bld) [#/Vol] 3.38 10*6/uL Low 4.2-5.4 [facility] Comment on above: Performed By: #### L 501.2300, L500.4050, L501.5200, L506.0400, L100.0100 ####[facility] [address] [place], [address] RDW SD 46.3 fl High 35.1-43.9 [facility] Comment on above: Performed By: #### L 501.2300, L500.4050, L501.5200, L506.0400, L100.0100 ####[facility] [address] [place], [address] WBC (Bld) [#/Vol] 7.3 10*3/uL Normal 4.4-11.0 [facility] Comment on above: Performed By: #### L 501.2300, L500.4050, L501.5200, L506.0400, L100.0100 ####[facility] [address] [place], [address] Comprehensive Metabolic Prof ilon 08-30-2024 Albumin [Mass/Vol] 2.7 g/dL Low 3.2-5.0 [facility] Comment on above: Performed By: #### L 501.2300, L500.4050, L501.5200, L506.0400, L100.0100 ####[facility] [address] [place], [address] Albumin/Globulin [Mass ratio] 0.8 {ratio} Low 0.9-2.4 [facility] Comment on above: Performed By: #### L 501.2300, L500.4050, L501.5200, L506.0400, L100.0100 ####[facility] [address] [place], [address] ALK P 77 U/L Normal 45-117 [facility] Comment on above: Performed By: #### L 501.2300, L500.4050, L501.5200, L506.0400, L100.0100 ####[facility] [address] [place], [address] ALT [Catalytic activity/Vol] 18 U/L Normal 13-56 [facility] Comment on above: Performed By: #### L 501.2300, L500.4050, L501.5200, L506.0400, L100.0100 ####[facility] [address] [place], [address] AST [Catalytic activity/Vol] 12 U/L Low 15-37 [facility] Comment on above: Performed By: #### L 501.2300, L500.4050, L501.5200, L506.0400, L100.0100 ####[facility] [address] [place], [address] Bilirubin [Mass/Vol] 0.40 mg/dL Normal 0.20-1.00 [facility] Comment on above: Result Comment: For patients on eltrombopag therapy, use of Dimension [place] TBIL is not recommended. Performed By: #### L 501.2300, L500.4050, L501.5200, L506.0400, L100.0100 ####[facility] [address] [place], [address] BUN/CRE 31.3 RATIO High 10-20 [facility] Comment on above: Performed By: #### L 501.2300, L500.4050, L501.5200, L506.0400, L100.0100 ####[facility] [address] [place], [address] CA,Total 8.4 mg/dL Low 8.5-10.1 [facility] Comment on above: Performed By: #### L 501.2300, L500.4050, L501.5200, L506.0400, L100.0100 ####[facility] [address] [place], [address] Chloride [Moles/Vol] 110 mmol/L High 98-107 [facility] Comment on above: Performed By: #### L 501.2300, L500.4050, L501.5200, L506.0400, L100.0100 ####[facility] [address] [place], [address] CO2 [Moles/Vol] 19.0 mmol/L Low 21.0-32.0 [facility] Comment on above: Performed By: #### L 501.2300, L500.4050, L501.5200, L506.0400, L100.0100 ####[facility] [address] [place], [address] Creatinine [Mass/Vol] 0.67 mg/dL Normal 0.55-1.02 [facility] Comment on above: Result Comment: The validity of the calculated GFR GFRAA in patients over70 years has not been determined. Clinical correlation isessential. Performed By: #### L 501.2300, L500.4050, L501.5200, L506.0400, L100.0100 ####[facility] [address] [place], [address] ECRCL 49.33 ml/min Normal [facility] Comment on above: Performed By: #### L 501.2300, L500.4050, L501.5200, L506.0400, L100.0100 ####[facility] [address] [place], [address] EST GFR - AA 108 mL/min Normal >60 [facility] Comment on above: Result Comment: Afri can Latvian GFR Calc Performed By: #### L 501.2300, L500.4050, L501.5200, L506.0400, L100.0100 ####[facility] [address] [place], [address] GAP 8 Normal 5-15 [facility] Comment on above: Performed By: #### L 501.2300, L500.4050, L501.5200, L506.0400, L100.0100 ####[facility] [address] [place], [address] GFR/1.73 sq M.predicted among non-blacks MDRD (S/P/Bld) [Vol rate/Area] 90 mL/min/{1.73_m2} Normal >60 [facility] Comment on above: Result Comment: Non- GFR Calc Performed By: #### L 501.2300, L500.4050, L501.5200, L506.0400, L100.0100 ####[facility] [address] [place], [address] Globulin (S) [Mass/Vol] 3.5 g/dL Normal 2.2-4.2 [facility] Comment on above: Performed By: #### L 501.2300, L500.4050, L501.5200, L506.0400, L100.0100 ####[facility] [address] [place], [address] Glucose [Mass/Vol] 291 mg/dL High 74-106 [facility] Comment on above: Result Comment: Gluc ose result greater than or equal to 200 mg/dLsuggests DIABETES MELLITUS per A.D.A. criteria. Performed By: #### L 501.2300, L500.4050, L501.5200, L506.0400, L100.0100 ####[facility] [address] [place], [address] Potassium [Moles/Vol] 3.6 mmol/L Normal 3.5-5.1 [facility] Comment on above: Performed By: #### L 501.2300, L500.4050, L501.5200, L506.0400, L100.0100 ####[facility] [address] [place], [address] Sodium [Moles/Vol] 137 mmol/L Normal 136-145 [facility] Comment on above: Performed By: #### L 501.2300, L500.4050, L501.5200, L506.0400, L100.0100 ####[facility] [address] [place], [address] T PROT 6.2 g/dL Low 6.4-8.2 [facility] Comment on above: Performed By: #### L 501.2300, L500.4050, L501.5200, L506.0400, L100.0100 ####[facility] [address] [place], [address] Urea nitrogen [Mass/Vol] 21 mg/dL High - [facility] Comment on above: Performed By: #### L 501.2300, L500.4050, L501.5200, L506.0400, L100.0100 ####[facility] [address] [place], [address] Magnesiumon 08-30-2024 Magnesium [Mass/Vol] 2.1 mg/dL Normal 1.6-2.6 [facility] Comment on above: Performed By: #### L 501.2300, L500.4050, L501.5200, L506.0400, L100.0100 ####[facility] [address] [place], [address] Phosphoruson 08-30-2024 Phosphate [Mass/Vol] 2.4 mg/dL Low 2.5-4.9 [facility] Comment on above: Performed By: #### L 501.2300, L500.4050, L501.5200, L506.0400, L100.0100 ####[facility] [address] [place], [address] T4 Free Directon 08-30-2024 T4 FREE DIRECT 1.08 ng/dL Normal 0.76-1.46 [facility] Comment on above: Performed By: #### L 501.2300, L500.4050, L501.5200, L506.0400, L100.0100 ####[facility] [address] [place], [address] Acetone Serumon 08-29-2024 ACETONE SERUM SMALL Abnormal NEG [facility] Comment on above: Result Comment: RESU LTS CALLED TO CORINE LAMAS RN 08/29/24 1740 Yaw.REPORT READ BACK BY . SAME Performed By: #### L 500.2500, L501.6900 ####[facility] [address] [place], [address] Basic Metabolic Profile (BMP )on 08-29-2024 BUN/CRE 29.9 RATIO High 10-20 [facility] Comment on above: Performed By: #### L 500.2500, L501.6900 ####[facility] [address] [place], [address] CA,Total 9.8 mg/dL Normal 8.5-10.1 [facility] Comment on above: Performed By: #### L 500.2500, L501.6900 ####[facility] [address] [place], [address] Chloride [Moles/Vol] 105 mmol/L Normal 98-107 [facility] Comment on above: Performed By: #### L 500.2500, L501.6900 ####[facility] [address] [place], [address] CO2 [Moles/Vol] 20.0 mmol/L Low 21.0-32.0 [facility] Comment on above: Performed By: #### L 500.2500, L501.6900 ####[facility] [address] [place], [address] Creatinine [Mass/Vol] 0.77 mg/dL Normal 0.55-1.02 [facility] Comment on above: Result Comment: The validity of the calculated GFR GFRAA in patients over70 years has not been determined. Clinical correlation isessential. Performed By: #### L 500.2500, L501.6900 ####[facility] [address] [place], [address] ECRCL 49.33 ml/min Normal [facility] Comment on above: Performed By: #### L 500.2500, L501.6900 ####[facility] [address] [place], [address] EST GFR - AA 93 mL/min Normal >60 [facility] Comment on above: Result Comment: Afri can Latvian GFR Calc Performed By: #### L 500.2500, L501.6900 ####[facility] [address] [place], [address] GAP 11 Normal 5-15 [facility] Comment on above: Performed By: #### L 500.2500, L501.6900 ####[facility] [address] [place], [address] GFR/1.73 sq M.predicted among non-blacks MDRD (S/P/Bld) [Vol rate/Area] 76 mL/min/{1.73_m2} Normal >60 [facility] Comment on above: Result Comment: Non- GFR Calc Performed By: #### L 500.2500, L501.6900 ####[facility] [address] [place], [address] Glucose [Mass/Vol] 247 mg/dL High 74-106 [facility] Comment on above: Result Comment: Gluc ose result greater than or equal to 200 mg/dLsuggests DIABETES MELLITUS per A.D.A. criteria. Performed By: #### L 500.2500, L501.6900 ####[facility] [address] [place], [address] Potassium [Moles/Vol] 4.1 mmol/L Normal 3.5-5.1 [facility] Comment on above: Performed By: #### L 500.2500, L501.6900 ####[facility] [address] [place], [address] Sodium [Moles/Vol] 136 mmol/L Normal 136-145 [facility] Comment on above: Performed By: #### L 500.2500, L501.6900 ####[facility] [address] [place], [address] Urea nitrogen [Mass/Vol] 23 mg/dL High 7-18 [facility] Comment on above: Performed By: #### L 500.2500, L501.6900 ####[facility] [address] [place], [address] BUN Normal 7-18 [facility] Comment on above: Result Comment: Canc elled via OM: Order cancelled - Patient discharged Performed By: #### L 500.2500, L100.0100 ####[facility] [address] [place], [address] BUN/CRE Normal 10-20 [facility] Comment on above: Result Comment: Canc elled via OM: Order cancelled - Patient discharged Performed By: #### L 500.2500, L100.0100 ####[facility] [address] [place], [address] CA,Total Normal 8.5-10.1 [facility] Comment on above: Result Comment: Canc elled via OM: Order cancelled - Patient discharged Performed By: #### L 500.2500, L100.0100 ####[facility] [address] [place], [address] CL Normal 98-107 [facility] Comment on above: Result Comment: Canc elled via OM: Order cancelled - Patient discharged Performed By: #### L 500.2500, L100.0100 ####[facility] [address] [place], [address] CO2 Normal 21.0-32.0 [facility] Comment on above: Result Comment: Canc elled via OM: Order cancelled - Patient discharged Performed By: #### L 500.2500, L100.0100 ####[facility] [address] [place], [address] CREAT,SERUM Normal 0.55-1.02 [facility] Comment on above: Result Comment: Canc elled via OM: Order cancelled - Patient discharged Performed By: #### L 500.2500, L100.0100 ####[facility] [address] [place], [address] EST GFR Normal >60 [facility] Comment on above: Result Comment: Canc elled via OM: Order cancelled - Patient discharged Performed By: #### L 500.2500, L100.0100 ####[facility] [address] [place], [address] EST GFR - AA Normal >60 [facility] Comment on above: Result Comment: Canc elled via OM: Order cancelled - Patient discharged Performed By: #### L 500.2500, L100.0100 ####[facility] [address] [place], [address] GAP Normal 5-15 [facility] Comment on above: Result Comment: Canc elled via OM: Order cancelled - Patient discharged Performed By: #### L 500.2500, L100.0100 ####[facility] [address] [place], [address] GLU Normal 74-106 [facility] Comment on above: Result Comment: Canc elled via OM: Order cancelled - Patient discharged Performed By: #### L 500.2500, L100.0100 ####[facility] [address] [place], [address] Potassium Normal 3.5-5.1 [facility] Comment on above: Result Comment: Canc elled via OM: Order cancelled - Patient discharged Performed By: #### L 500.2500, L100.0100 ####[facility] [address] [place], [address] Basic Metabolic Profile (BMP) Normal 136-145 [facility] Comment on above: Result Comment: Canc elled via OM: Order cancelled - Patient discharged Performed By: #### L 500.2500, L100.0100 ####[facility] [address] [place], [address] Bedside Glucoseon 08-29-2024 FINGERSTICK GLU 300 mg/dL High 74-106 [facility] Comment on above: Result Comment: OLGA GEMENT OF PATIENT CARE PER NURSING PROTOCOL Performed By: #### L 501.080 ####[facility] [address] [place], [address] FINGERSTICK GLU 228 mg/dL High 74-106 [facility] Comment on above: Result Comment: OLGA GEMENT OF PATIENT CARE PER NURSING PROTOCOL Performed By: #### L 501.080 ####[facility] [address] [place], [address] FINGERSTICK GLU 224 mg/dL High 74-106 [facility] Comment on above: Result Comment: OLGA GEMENT OF PATIENT CARE PER NURSING PROTOCOL Performed By: #### L 501.080 ####[facility] [address] [place], [address] CBC W/Diff, Automatedon 08-13 Absolute Neut Normal 2.0-7.7 [facility] Comment on above: Result Comment: Canc elled via OM: Order cancelled - Patient discharged Performed By: #### L 500.2500, L100.0100 ####[facility] [address] [place], [address] HCT Normal 37-47 [facility] Comment on above: Result Comment: Canc elled via OM: Order cancelled - Patient discharged Performed By: #### L 500.2500, L100.0100 ####[facility] [address] [place], [address] HGB Normal 12.0-15.0 [facility] Comment on above: Result Comment: Canc elled via OM: Order cancelled - Patient discharged Performed By: #### L 500.2500, L100.0100 ####[facility] [address] [place], [address] MCH Normal 27.0-32.0 [facility] Comment on above: Result Comment: Canc elled via OM: Order cancelled - Patient discharged Performed By: #### L 500.2500, L100.0100 ####[facility] [address] [place], [address] MCHC Normal 32-36 [facility] Comment on above: Result Comment: Canc elled via OM: Order cancelled - Patient discharged Performed By: #### L 500.2500, L100.0100 ####[facility] [address] [place], [address] MCV Normal 81-99 [facility] Comment on above: Result Comment: Canc elled via OM: Order cancelled - Patient discharged Performed By: #### L 500.2500, L100.0100 ####[facility] [address] [place], [address] NEUT% Normal 47-70 [facility] Comment on above: Result Comment: Canc elled via OM: Order cancelled - Patient discharged Performed By: #### L 500.2500, L100.0100 ####[facility] [address] [place], [address] PLT Normal 150-450 [facility] Comment on above: Result Comment: Canc elled via OM: Order cancelled - Patient discharged Performed By: #### L 500.2500, L100.0100 ####[facility] [address] [place], [address] RBC Normal 4.2-5.4 [facility] Comment on above: Result Comment: Canc elled via OM: Order cancelled - Patient discharged Performed By: #### L 500.2500, L100.0100 ####[facility] [address] [place], [address] RDW CV Normal 11.6-14.6 [facility] Comment on above: Result Comment: Canc elled via OM: Order cancelled - Patient discharged Performed By: #### L 500.2500, L100.0100 ####[facility] [address] [place], [address] RDW SD Normal 35.1-43.9 [facility] Comment on above: Result Comment: Canc elled via OM: Order cancelled - Patient discharged Performed By: #### L 500.2500, L100.0100 ####[facility] [address] [place], [address] WBC Normal 4.4-11.0 [facility] Comment on above: Result Comment: Canc elled via OM: Order cancelled - Patient discharged Performed By: #### L 500.2500, L100.0100 ####[facility] [address] [place], [address] Urinalysis, Completeon 08-29 BACTERIA RARE Normal None Seen [facility] Comment on above: Order Comment: BLADD ER TAP Performed By: #### L 400.0001 ####[facility] [address] [place], [address] EPI,SQUAMOUS 0-5 SEEN Normal 5-10 [facility] Comment on above: Order Comment: BLADD ER TAP Performed By: #### L 400.0001 ####[facility] [address] [place], [address] RBC 0-5 SEEN Normal 0-5 [facility] Comment on above: Order Comment: BLADD ER TAP Performed By: #### L 400.0001 ####[facility] [address] [place], [address] WBC 5-10 SEEN Normal 0-5 [facility] Comment on above: Order Comment: BLADD ER TAP Performed By: #### L 400.0001 ####[facility] [address] [place], [address] YEAST 2+ /hpf Normal None Seen [facility] Comment on above: Order Comment: BLADD ER TAP Performed By: #### L 400.0001 ####[facility] [address] [place], [address] Mucus Ql (Urine sed) 0 SEEN Normal [facility] Comment on above: Order Comment: BLADD ER TAP Performed By: #### L 400.0001 ####[facility] [address] [place], [address] Basic Metabolic Profile (BMP )on 08-28-2024 BUN/CRE 20.4 RATIO High 10-20 [facility] Comment on above: Performed By: #### L 100.0100, L500.2500, L501.9520 ####[facility] [address] [place], [address] CA,Total 9.2 mg/dL Normal 8.5-10.1 [facility] Comment on above: Performed By: #### L 100.0100, L500.2500, L501.9520 ####[facility] [address] [place], [address] Chloride [Moles/Vol] 107 mmol/L Normal 98-107 [facility] Comment on above: Performed By: #### L 100.0100, L500.2500, L501.9520 ####[facility] [address] [place], [address] CO2 [Moles/Vol] 20.0 mmol/L Low 21.0-32.0 [facility] Comment on above: Performed By: #### L 100.0100, L500.2500, L501.9520 ####[facility] [address] [place], [address] Creatinine [Mass/Vol] 0.64 mg/dL Normal 0.55-1.02 [facility] Comment on above: Result Comment: The validity of the calculated GFR GFRAA in patients over70 years has not been determined. Clinical correlation isessential. Performed By: #### L 100.0100, L500.2500, L501.9520 ####[facility] [address] [place], [address] ECRCL 49.35 ml/min Normal [facility] Comment on above: Performed By: #### L 100.0100, L500.2500, L501.9520 ####[facility] [address] [place], [address] EST GFR - AA 115 mL/min Normal >60 [facility] Comment on above: Result Comment: Afri can Latvian GFR Calc Performed By: #### L 100.0100, L500.2500, L501.9520 ####[facility] [address] [place], [address] GAP 9 Normal 5-15 [facility] Comment on above: Performed By: #### L 100.0100, L500.2500, L501.9520 ####[facility] [address] [place], [address] GFR/1.73 sq M.predicted among non-blacks MDRD (S/P/Bld) [Vol rate/Area] 95 mL/min/{1.73_m2} Normal >60 [facility] Comment on above: Result Comment: Non- GFR Calc Performed By: #### L 100.0100, L500.2500, L501.9520 ####[facility] [address] [place], [address] Glucose [Mass/Vol] 209 mg/dL High 74-106 [facility] Comment on above: Result Comment: Gluc ose result greater than or equal to 200 mg/dLsuggests DIABETES MELLITUS per A.D.A. criteria. Performed By: #### L 100.0100, L500.2500, L501.9520 ####[facility] [address] [place], [address] Potassium [Moles/Vol] 3.8 mmol/L Normal 3.5-5.1 [facility] Comment on above: Performed By: #### L 100.0100, L500.2500, L501.9520 ####[facility] [address] [place], [address] Sodium [Moles/Vol] 136 mmol/L Normal 136-145 [facility] Comment on above: Performed By: #### L 100.0100, L500.2500, L501.9520 ####[facility] [address] [place], [address] Urea nitrogen [Mass/Vol] 13 mg/dL Normal 7-18 [facility] Comment on above: Performed By: #### L 100.0100, L500.2500, L501.9520 ####[facility] [address] [place], [address] Bedside Glucoseon 08-28-2024 FINGERSTICK GLU 229 mg/dL High 74-106 [facility] Comment on above: Result Comment: OLGA GEMENT OF PATIENT CARE PER NURSING PROTOCOL Performed By: #### L 501.080 ####[facility] [address] [place], [address] FINGERSTICK GLU 241 mg/dL High -106 [facility] Comment on above: Result Comment: OLGA GEMENT OF PATIENT CARE PER NURSING PROTOCOL Performed By: #### L 501.080 ####[facility] [address] [place], [address] FINGERSTICK GLU 216 mg/dL High 74-106 [facility] Comment on above: Result Comment: OLGA GOMEZ OF PATIENT CARE PER NURSING PROTOCOL Performed By: #### L 501.080 ####[facility] [address] [place], [address] CBC W/Diff, Automatedon - Absolute Lymph 1.53 X10 3/uL Normal 0.83-4.51 [facility] Comment on above: Performed By: #### L 100.0100, L500.2500, L501.9520 ####[facility] [address] [place], [address] Absolute Neut 6.4 X10 3/uL Normal 2.0-7.7 [facility] Comment on above: Performed By: #### L 100.0100, L500.2500, L501.9520 ####[facility] [address] [place], [address] Basophils/100 WBC (Bld) 0.5 % Normal 0-1 [facility] Comment on above: Performed By: #### L 100.0100, L500.2500, L501.9520 ####[facility] [address] [place], [address] Eosinophils/100 WBC (Bld) 3.1 % Normal 0-5 [facility] Comment on above: Performed By: #### L 100.0100, L500.2500, L501.9520 ####[facility] [address] [place], [address] Erythrocyte distribution width (RBC) [Ratio] 13.3 % Normal 11.6-14.6 [facility] Comment on above: Performed By: #### L 100.0100, L500.2500, L501.9520 ####[facility] [address] [place], [address] Hematocrit (Bld) [Volume fraction] 36.4 % Low 37-47 [facility] Comment on above: Performed By: #### L 100.0100, L500.2500, L501.9520 ####[facility] [address] [place], [address] Hemoglobin (Bld) [Mass/Vol] 12.4 g/dL Normal 12.0-15.0 [facility] Comment on above: Performed By: #### L 100.0100, L500.2500, L501.9520 ####[facility] [address] [place], [address] IG% 0.300 Normal 0.0-0.9 [facility] Comment on above: Result Comment: IG% - Immature Granulocytes (promyelocytes, myelocytes andmetamyelocytes) > 1% indicates that a LEFT SHIFT is Present. Performed By: #### L 100.0100, L500.2500, L501.9520 ####[facility] [address] [place], [address] Lymphocytes/100 WBC (Bld) 16.2 % Low 19-41 [facility] Comment on above: Performed By: #### L 100.0100, L500.2500, L501.9520 ####[facility] [address] [place], [address] MCH (RBC) [Entitic mass] 32.0 pg Normal 27.0-32.0 [facility] Comment on above: Performed By: #### L 100.0100, L500.2500, L501.9520 ####[facility] [address] [place], [address] MCHC (RBC) [Mass/Vol] 34.1 g/dL Normal 32-36 [facility] Comment on above: Performed By: #### L 100.0100, L500.2500, L501.9520 ####[facility] [address] [place], [address] MCV (RBC) [Entitic vol] 93.8 fL Normal 81-99 [facility] Comment on above: Performed By: #### L 100.0100, L500.2500, L501.9520 ####[facility] [address] [place], [address] Monocytes/100 WBC (Bld) 11.6 % High 0-10 [facility] Comment on above: Performed By: #### L 100.0100, L500.2500, L501.9520 ####[facility] [address] [place], [address] Neutrophils/100 WBC (Bld) 68.3 % Normal 47-70 [facility] Comment on above: Performed By: #### L 100.0100, L500.2500, L501.9520 ####[facility] [address] [place], [address] Nucleated RBC (Bld) [#/Vol] 0 10*3/uL Normal 0-5 [facility] Comment on above: Performed By: #### L 100.0100, L500.2500, L501.9520 ####[facility] [address] [place], [address] Platelet mean volume (Bld) [Entitic vol] 9.7 fL Normal 6.2-12.0 [facility] Comment on above: Performed By: #### L 100.0100, L500.2500, L501.9520 ####[facility] [address] [place], [address] Platelets (Bld) [#/Vol] 283 10*3/uL Normal 150-450 [facility] Comment on above: Performed By: #### L 100.0100, L500.2500, L501.9520 ####[facility] [address] [place], [address] RBC (Bld) [#/Vol] 3.88 10*6/uL Low 4.2-5.4 [facility] Comment on above: Performed By: #### L 100.0100, L500.2500, L501.9520 ####[facility] [address] [place], [address] RDW SD 45.1 fl High 35.1-43.9 [facility] Comment on above: Performed By: #### L 100.0100, L500.2500, L501.9520 ####[facility] [address] [place], [address] WBC (Bld) [#/Vol] 9.4 10*3/uL Normal 4.4-11.0 [facility] Comment on above: Performed By: #### L 100.0100, L500.2500, L501.9520 ####[facility] [address] [place], [address] EGD Reporton 08-28-2024 EGD Report Normal [facility] Hemoglobin A1con 08-28-2024 HbA1c (Bld) [Mass fraction] 7.2 % High 3.8-5.6 [facility] Comment on above: Result Comment: Norm al < 5.7 % Prediabetic 5.7 - 6.4 % Diabetic >or= 6.5 % Please note range changes. Performed By: #### L 501.6697 ####[facility] [address] [place], [address] MR/CON.PCM.NEon 08-28-2024 MR/CON.PCM.NE Normal [facility] MR/PN.GIon 08-28-2024 MR/PN.GI Normal [facility] MR/POSTOP.ANEon 08-28-2024 MR/POSTOP.ANE Normal [facility] MR/GYILSBUA8kz 08-28-2024 MR/POSTOPAN2 Normal [facility] Thyroid Stim Hormone (TSH)on 08-28-2024 TSH 10.600 uIU/mL High 0.358-3.74 0 [facility] Comment on above: Performed By: #### L 100.0100, L500.2500, L501.9520 ####[facility] [address] [place], [address] Urine Cultureon 08-28-2024 URC Normal [facility] Comment on above: Performed By: #### M 100.2200 ####[facility] [address] [place], [address] Bedside Glucoseon 08-27-2024 FINGERSTICK GLU 195 mg/dL High 74-106 [facility] Comment on above: Result Comment: OLGA GEMENT OF PATIENT CARE PER NURSING PROTOCOL Performed By: #### L 501.080 ####[facility] [address] [place], [address] FINGERSTICK GLU 173 mg/dL High 74-106 [facility] Comment on above: Result Comment: OLGA GEMENT OF PATIENT CARE PER NURSING PROTOCOL Performed By: #### L 501.080 ####[facility] [address] [place], [address] FINGERSTICK GLU 249 mg/dL High 74-106 [facility] Comment on above: Result Comment: OLGA GEMENT OF PATIENT CARE PER NURSING PROTOCOL Performed By: #### L 501.080 ####[facility] [address] [place], [address] FINGERSTICK GLU 188 mg/dL High 74-106 [facility] Comment on above: Result Comment: OLGA GEMENT OF PATIENT CARE PER NURSING PROTOCOL Performed By: #### L 501.080 ####[facility] [address] [place], [address] MR/CON.PCM.GIon 08-27-2024 MR/CON.PCM.GI Normal [facility] Modified Barium Swallow Stud yon 08-27-2024 Modified Barium Swallow Study Normal [facility] Bedside Glucoseon 08-26-2024 FINGERSTICK GLU 162 mg/dL High 74-106 [facility] Comment on above: Result Comment: OLGA GEMENT OF PATIENT CARE PER NURSING PROTOCOL Performed By: #### L 501.080 ####[facility] [address] [place], [address] FINGERSTICK GLU 167 mg/dL High 74-106 [facility] Comment on above: Result Comment: OLGA GEMENT OF PATIENT CARE PER NURSING PROTOCOL Performed By: #### L 501.080 ####[facility] [address] [place], [address] FINGERSTICK GLU 214 mg/dL High 74-106 [facility] Comment on above: Result Comment: OLGA GEMENT OF PATIENT CARE PER NURSING PROTOCOL Performed By: #### L 501.080 ####[facility] [address] [place], [address] FINGERSTICK GLU 152 mg/dL High 74-106 [facility] Comment on above: Result Comment: OLGA GEMENT OF PATIENT CARE PER NURSING PROTOCOL Performed By: #### L 501.080 ####[facility] [address] [place], [address] CBC W/Diff, Automatedon 08-13 Absolute Lymph 1.33 X10 3/uL Normal 0.83-4.51 [facility] Comment on above: Performed By: #### L 500.4100, L501.2300, L100.0100, L501.5200, L500.4050 ####[facility] [address] [place], [address] Absolute Neut 7.2 X10 3/uL Normal 2.0-7.7 [facility] Comment on above: Performed By: #### L 500.4100, L501.2300, L100.0100, L501.5200, L500.4050 ####[facility] [address] [place], [address] Basophils/100 WBC (Bld) 0.3 % Normal 0-1 [facility] Comment on above: Performed By: #### L 500.4100, L501.2300, L100.0100, L501.5200, L500.4050 ####[facility] [address] [place], [address] Eosinophils/100 WBC (Bld) 3.2 % Normal 0-5 [facility] Comment on above: Performed By: #### L 500.4100, L501.2300, L100.0100, L501.5200, L500.4050 ####[facility] [address] [place], [address] Erythrocyte distribution width (RBC) [Ratio] 13.1 % Normal 11.6-14.6 [facility] Comment on above: Performed By: #### L 500.4100, L501.2300, L100.0100, L501.5200, L500.4050 ####[facility] [address] [place], [address] Hematocrit (Bld) [Volume fraction] 31.7 % Low 37-47 [facility] Comment on above: Performed By: #### L 500.4100, L501.2300, L100.0100, L501.5200, L500.4050 ####[facility] [address] [place], [address] Hemoglobin (Bld) [Mass/Vol] 10.5 g/dL Low 12.0-15.0 [facility] Comment on above: Performed By: #### L 500.4100, L501.2300, L100.0100, L501.5200, L500.4050 ####[facility] [address] [place], [address] IG% 0.400 Normal 0.0-0.9 [facility] Comment on above: Result Comment: IG% - Immature Granulocytes (promyelocytes, myelocytes andmetamyelocytes) > 1% indicates that a LEFT SHIFT is Present. Performed By: #### L 500.4100, L501.2300, L100.0100, L501.5200, L500.4050 ####[facility] [address] [place], [address] Lymphocytes/100 WBC (Bld) 13.8 % Low 19-41 [facility] Comment on above: Performed By: #### L 500.4100, L501.2300, L100.0100, L501.5200, L500.4050 ####[facility] [address] [place], [address] MCH (RBC) [Entitic mass] 31.3 pg Normal 27.0-32.0 [facility] Comment on above: Performed By: #### L 500.4100, L501.2300, L100.0100, L501.5200, L500.4050 ####[facility] [address] [place], [address] MCHC (RBC) [Mass/Vol] 33.1 g/dL Normal 32-36 [facility] Comment on above: Performed By: #### L 500.4100, L501.2300, L100.0100, L501.5200, L500.4050 ####[facility] [address] [place], [address] MCV (RBC) [Entitic vol] 94.6 fL Normal 81-99 [facility] Comment on above: Performed By: #### L 500.4100, L501.2300, L100.0100, L501.5200, L500.4050 ####[facility] [address] [place], [address] Monocytes/100 WBC (Bld) 8.4 % Normal 0-10 [facility] Comment on above: Performed By: #### L 500.4100, L501.2300, L100.0100, L501.5200, L500.4050 ####[facility] [address] [place], [address] Neutrophils/100 WBC (Bld) 73.9 % High 47-70 [facility] Comment on above: Performed By: #### L 500.4100, L501.2300, L100.0100, L501.5200, L500.4050 ####[facility] [address] [place], [address] Nucleated RBC (Bld) [#/Vol] 0 10*3/uL Normal 0-5 [facility] Comment on above: Performed By: #### L 500.4100, L501.2300, L100.0100, L501.5200, L500.4050 ####[facility] [address] [place], [address] Platelet mean volume (Bld) [Entitic vol] 10.0 fL Normal 6.2-12.0 [facility] Comment on above: Performed By: #### L 500.4100, L501.2300, L100.0100, L501.5200, L500.4050 ####[facility] [address] [place], [address] Platelets (Bld) [#/Vol] 276 10*3/uL Normal 150-450 [facility] Comment on above: Performed By: #### L 500.4100, L501.2300, L100.0100, L501.5200, L500.4050 ####[facility] [address] [place], [address] RBC (Bld) [#/Vol] 3.35 10*6/uL Low 4.2-5.4 [facility] Comment on above: Performed By: #### L 500.4100, L501.2300, L100.0100, L501.5200, L500.4050 ####[facility] [address] [place], [address] RDW SD 44.6 fl High 35.1-43.9 [facility] Comment on above: Performed By: #### L 500.4100, L501.2300, L100.0100, L501.5200, L500.4050 ####[facility] [address] [place], [address] WBC (Bld) [#/Vol] 9.7 10*3/uL Normal 4.4-11.0 [facility] Comment on above: Performed By: #### L 500.4100, L501.2300, L100.0100, L501.5200, L500.4050 ####[facility] [address] [place], [address] Comprehensive Metabolic Prof [facility] 08-26-2024 Albumin [Mass/Vol] 3.2 g/dL Normal 3.2-5.0 [facility] Comment on above: Order Comment: Comme nts: NPO at [place] prior to lipid panel Performed By: #### L 500.4100, L501.2300, L100.0100, L501.5200, L500.4050 ####[facility] [address] [place], [address] Albumin/Globulin [Mass ratio] 0.9 {ratio} Normal 0.9-2.4 [facility] Comment on above: Order Comment: Comme nts: NPO at [place] prior to lipid panel Performed By: #### L 500.4100, L501.2300, L100.0100, L501.5200, L500.4050 ####[facility] [address] [place], [address] ALK P 76 U/L Normal 45-117 [facility] Comment on above: Order Comment: Comme nts: NPO at [place] prior to lipid panel Performed By: #### L 500.4100, L501.2300, L100.0100, L501.5200, L500.4050 ####[facility] [address] [place], [address] ALT [Catalytic activity/Vol] 22 U/L Normal 13-56 [facility] Comment on above: Order Comment: Comme nts: NPO at [place] prior to lipid panel Performed By: #### L 500.4100, L501.2300, L100.0100, L501.5200, L500.4050 ####[facility] [address] [place], [address] AST [Catalytic activity/Vol] 20 U/L Normal 15-37 [facility] Comment on above: Order Comment: Comme nts: NPO at [place] prior to lipid panel Performed By: #### L 500.4100, L501.2300, L100.0100, L501.5200, L500.4050 ####[facility] [address] [place], [address] Bilirubin [Mass/Vol] 0.50 mg/dL Normal 0.20-1.00 [facility] Comment on above: Order Comment: Comme nts: NPO at [place] prior to lipid panel Result Comment: For patients on eltrombopag therapy, use of Dimension [place] TBIL is not recommended. Performed By: #### L 500.4100, L501.2300, L100.0100, L501.5200, L500.4050 ####[facility] [address] [place], [address] BUN/CRE 25.9 RATIO High 10-20 [facility] Comment on above: Order Comment: Comme nts: NPO at [place] prior to lipid panel Performed By: #### L 500.4100, L501.2300, L100.0100, L501.5200, L500.4050 ####[facility] [address] [place], [address] CA,Total 8.8 mg/dL Normal 8.5-10.1 [facility] Comment on above: Order Comment: Comme nts: NPO at [place] prior to lipid panel Performed By: #### L 500.4100, L501.2300, L100.0100, L501.5200, L500.4050 ####[facility] [address] [place], [address] Chloride [Moles/Vol] 108 mmol/L High 98-107 [facility] Comment on above: Order Comment: Comme nts: NPO at [place] prior to lipid panel Performed By: #### L 500.4100, L501.2300, L100.0100, L501.5200, L500.4050 ####[facility] [address] [place], [address] CO2 [Moles/Vol] 23.0 mmol/L Normal 21.0-32.0 [facility] Comment on above: Order Comment: Comme nts: NPO at [place] prior to lipid panel Performed By: #### L 500.4100, L501.2300, L100.0100, L501.5200, L500.4050 ####[facility] [address] [place], [address] Creatinine [Mass/Vol] 0.81 mg/dL Normal 0.55-1.02 [facility] Comment on above: Order Comment: Comme nts: NPO at [place] prior to lipid panel Result Comment: The validity of the calculated GFR GFRAA in patients over70 years has not been determined. Clinical correlation isessential. Performed By: #### L 500.4100, L501.2300, L100.0100, L501.5200, L500.4050 ####[facility] [address] [place], [address] ECRCL 48.74 ml/min Normal [facility] Comment on above: Order Comment: Comme nts: NPO at [place] prior to lipid panel Performed By: #### L 500.4100, L501.2300, L100.0100, L501.5200, L500.4050 ####[facility] [address] [place], [address] EST GFR - AA 87 mL/min Normal >60 [facility] Comment on above: Order Comment: Comme nts: NPO at [place] prior to lipid panel Result Comment: Afri can [place] GFR Calc Performed By: #### L 500.4100, L501.2300, L100.0100, L501.5200, L500.4050 ####[facility] [address] [place], [address] GAP 7 Normal 5-15 [facility] Comment on above: Order Comment: Comme nts: NPO at [place] prior to lipid panel Performed By: #### L 500.4100, L501.2300, L100.0100, L501.5200, L500.4050 ####[facility] [address] [place], [address] GFR/1.73 sq M.predicted among non-blacks MDRD (S/P/Bld) [Vol rate/Area] 72 mL/min/{1.73_m2} Normal >60 [facility] Comment on above: Order Comment: Comme nts: NPO at [place] prior to lipid panel Result Comment: Non- GFR Calc Performed By: #### L 500.4100, L501.2300, L100.0100, L501.5200, L500.4050 ####[facility] [address] [place], [address] Globulin (S) [Mass/Vol] 3.4 g/dL Normal 2.2-4.2 [facility] Comment on above: Order Comment: Comme nts: NPO at [place] prior to lipid panel Performed By: #### L 500.4100, L501.2300, L100.0100, L501.5200, L500.4050 ####[facility] [address] [place], [address] Glucose [Mass/Vol] 149 mg/dL High 74-106 [facility] Comment on above: Order Comment: Comme nts: NPO at [place] prior to lipid panel Result Comment: Fast ing Glucose result greater than or equal to 126 mg/dLsuggests DIABETES MELLITUS per A.D.A. criteria. Performed By: #### L 500.4100, L501.2300, L100.0100, L501.5200, L500.4050 ####[facility] [address] [place], [address] Potassium [Moles/Vol] 3.9 mmol/L Normal 3.5-5.1 [facility] Comment on above: Order Comment: Comme nts: NPO at [place] prior to lipid panel Performed By: #### L 500.4100, L501.2300, L100.0100, L501.5200, L500.4050 ####[facility] [address] [place], [address] Sodium [Moles/Vol] 137 mmol/L Normal 136-145 [facility] Comment on above: Order Comment: Comme nts: NPO at [place] prior to lipid panel Performed By: #### L 500.4100, L501.2300, L100.0100, L501.5200, L500.4050 ####[facility] [address] [place], [address] T PROT 6.6 g/dL Normal 6.4-8.2 [facility] Comment on above: Order Comment: Comme nts: NPO at [place] prior to lipid panel Performed By: #### L 500.4100, L501.2300, L100.0100, L501.5200, L500.4050 ####[facility] [address] [place], [address] Urea nitrogen [Mass/Vol] 21 mg/dL High 7-18 [facility] Comment on above: Order Comment: Comme nts: NPO at [place] prior to lipid panel Performed By: #### L 500.4100, L501.2300, L100.0100, L501.5200, L500.4050 ####[facility] [address] [place], [address] Echo, Limited Studyon 2024 Echo, Limited Study Normal [facility] Lipid Profileon 08-26-2024 Cholesterol [Mass/Vol] 142 mg/dL Normal 200 [facility] Comment on above: Order Comment: Comme nts: NPO at [place] prior to lipid panel Result Comment: <200 mg/dL Desirable 200-240 mg/dL Borderline >240 mg/dL High Risk Performed By: #### L 500.4100, L501.2300, L100.0100, L501.5200, L500.4050 ####[facility] [address] [place], [address] Cholesterol in HDL [Mass/Vol] 53 mg/dL Normal [facility] Comment on above: Order Comment: Comme nts: NPO at [place] prior to lipid panel Result Comment: The drugs N-Acetylcysteine and Metamizole may falselydepress this assay. Reference Range HDL <40 mg/dL Low HDL Cholesterol HDL >or= 60 mg/dL High HDL Cholesterol Performed By: #### L 500.4100, L501.2300, L100.0100, L501.5200, L500.4050 ####[facility] [address] [place], [address] Cholesterol in LDL [Mass/Vol] 51 mg/dL Normal 0-130 [facility] Comment on above: Order Comment: Comme nts: NPO at [place] prior to lipid panel Performed By: #### L 500.4100, L501.2300, L100.0100, L501.5200, L500.4050 ####[facility] [address] [place], [address] Cholesterol in VLDL [Mass/Vol] 38 mg/dL Normal 5-40 [facility] Comment on above: Order Comment: Comme nts: NPO at [place] prior to lipid panel Performed By: #### L 500.4100, L501.2300, L100.0100, L501.5200, L500.4050 ####[facility] [address] [place], [address] Triglyceride [Mass/Vol] 192 mg/dL Normal [facility] Comment on above: Order Comment: Comme nts: NPO at [place] prior to lipid panel Result Comment: The drugs N-Acetylcysteine and Metamizole may falselydepress this assay.Serum Triglycerides Reference Interval Normal <150 mg/dL Borderline high 150 - 199 mg/dL High 200 - 499 mg/dL Very High > or = 500 mg/dL Performed By: #### L 500.4100, L501.2300, L100.0100, L501.5200, L500.4050 ####[facility] [address] [place], [address] MR/CON.PCM.NEon 08-26-2024 MR/CON.PCM.NE Normal [facility] Magnesiumon 08-26-2024 Magnesium [Mass/Vol] 1.6 mg/dL Normal 1.6-2.6 [facility] Comment on above: Order Comment: Comme nts: NPO at [place] prior to lipid panel Performed By: #### L 500.4100, L501.2300, L100.0100, L501.5200, L500.4050 ####[facility] [address] [place], [address] Phosphoruson 08-26-2024 Phosphate [Mass/Vol] 3.4 mg/dL Normal 2.5-4.9 [facility] Comment on above: Order Comment: Comme nts: NPO at [place] prior to lipid panel Performed By: #### L 500.4100, L501.2300, L100.0100, L501.5200, L500.4050 ####[facility] [address] [place], [address] 12 Lead EKGon 08-25-2024 12 Lead EKG Normal [facility] Basic Metabolic Profile (BMP )on 08-25-2024 BUN/CRE 26.7 RATIO High 10-20 [facility] Comment on above: Order Comment: 'TROP ' Serial specimen #1, #2 or #3: 1 Performed By: #### L 501.4020, L100.0100, L500.2500, L300.3900, L300.4310 ####[facility] [address] [place], [address] CA,Total 9.3 mg/dL Normal 8.5-10.1 [facility] Comment on above: Order Comment: 'TROP ' Serial specimen #1, #2 or #3: 1 Performed By: #### L 501.4020, L100.0100, L500.2500, L300.3900, L300.4310 ####[facility] [address] [place], [address] Chloride [Moles/Vol] 102 mmol/L Normal 98-107 [facility] Comment on above: Order Comment: 'TROP ' Serial specimen #1, #2 or #3: 1 Performed By: #### L 501.4020, L100.0100, L500.2500, L300.3900, L300.4310 ####[facility] [address] [place], [address] CO2 [Moles/Vol] 25.0 mmol/L Normal 21.0-32.0 [facility] Comment on above: Order Comment: 'TROP ' Serial specimen #1, #2 or #3: 1 Performed By: #### L 501.4020, L100.0100, L500.2500, L300.3900, L300.4310 ####[facility] [address] [place], [address] Creatinine [Mass/Vol] 1.16 mg/dL High 0.55-1.02 [facility] Comment on above: Order Comment: 'TROP ' Serial specimen #1, #2 or #3: 1 Result Comment: The validity of the calculated GFR GFRAA in patients over70 years has not been determined. Clinical correlation isessential. Performed By: #### L 501.4020, L100.0100, L500.2500, L300.3900, L300.4310 ####[facility] [address] [place], [address] ECRCL 35.92 ml/min Normal [facility] Comment on above: Order Comment: 'TROP ' Serial specimen #1, #2 or #3: 1 Performed By: #### L 501.4020, L100.0100, L500.2500, L300.3900, L300.4310 ####[facility] [address] [place], [address] EST GFR - AA 58 mL/min Low >60 [facility] Comment on above: Order Comment: 'TROP ' Serial specimen #1, #2 or #3: 1 Result Comment: Afri can Latvian GFR Calc Performed By: #### L 501.4020, L100.0100, L500.2500, L300.3900, L300.4310 ####[facility] [address] [place], [address] GAP 8 Normal 5-15 [facility] Comment on above: Order Comment: 'TROP ' Serial specimen #1, #2 or #3: 1 Performed By: #### L 501.4020, L100.0100, L500.2500, L300.3900, L300.4310 ####[facility] [address] [place], [address] GFR/1.73 sq M.predicted among non-blacks MDRD (S/P/Bld) [Vol rate/Area] 48 mL/min/{1.73_m2} Low >60 [facility] Comment on above: Order Comment: 'TROP ' Serial specimen #1, #2 or #3: 1 Result Comment: Non- GFR Calc Performed By: #### L 501.4020, L100.0100, L500.2500, L300.3900, L300.4310 ####[facility] [address] [place], [address] Glucose [Mass/Vol] 350 mg/dL High 74-106 [facility] Comment on above: Order Comment: 'TROP ' Serial specimen #1, #2 or #3: 1 Result Comment: Gluc ose result greater than or equal to 200 mg/dLsuggests DIABETES MELLITUS per A.D.A. criteria. Performed By: #### L 501.4020, L100.0100, L500.2500, L300.3900, L300.4310 ####[facility] [address] [place], [address] Potassium [Moles/Vol] 4.7 mmol/L Normal 3.5-5.1 [facility] Comment on above: Order Comment: 'TROP ' Serial specimen #1, #2 or #3: 1 Performed By: #### L 501.4020, L100.0100, L500.2500, L300.3900, L300.4310 ####[facility] [address] [place], [address] Sodium [Moles/Vol] 135 mmol/L Low 136-145 [facility] Comment on above: Order Comment: 'TROP ' Serial specimen #1, #2 or #3: 1 Performed By: #### L 501.4020, L100.0100, L500.2500, L300.3900, L300.4310 ####[facility] [address] [place], [address] Urea nitrogen [Mass/Vol] 31 mg/dL High 7-18 [facility] Comment on above: Order Comment: 'TROP ' Serial specimen #1, #2 or #3: 1 Performed By: #### L 501.4020, L100.0100, L500.2500, L300.3900, L300.4310 ####[facility] [address] [place], [address] Bedside Glucoseon 08-25-2024 FINGERSTICK GLU 140 mg/dL High [address] [place] [address] Comment on above: Result Comment: OLGA GEMENT OF PATIENT CARE PER NURSING PROTOCOL Performed By: #### L 501.080 ####[facility] [address] [place], [address] FINGERSTICK GLU 135 mg/dL High [facility]106 [facility] Comment on above: Result Comment: OLGA GEMENT OF PATIENT CARE PER NURSING PROTOCOL Performed By: #### L 501.080 ####[facility] [address] [place], [address] FINGERSTICK GLU 352 mg/dL High [facility]106 [facility] Comment on above: Result Comment: OLGA GEMENT OF PATIENT CARE PER NURSING PROTOCOL Performed By: #### L 501.080 ####[facility] [address] [place], [address] FINGERSTICK GLU 209 mg/dL High [address] [place] [address] Comment on above: Result Comment: OLGA GEMENT OF PATIENT CARE PER NURSING PROTOCOL Performed By: #### L 501.080 ####[facility] [address] [place], [address] Brain without Contraston Brain without Contrast Normal [facility] CBC W/Diff, Automatedon 08-13 Absolute Lymph 1.24 X10 3/uL Normal 0.83-4.51 [facility] Comment on above: Performed By: #### L 501.4020, L100.0100, L500.2500, L300.3900, L300.4310 ####[facility] [address] [place], [address] Absolute Neut 8.0 X10 3/uL High 2.0-7.7 [facility] Comment on above: Performed By: #### L 501.4020, L100.0100, L500.2500, L300.3900, L300.4310 ####[facility] [address] [place], [address] Basophils/100 WBC (Bld) 0.5 % Normal 0-1 [facility] Comment on above: Performed By: #### L 501.4020, L100.0100, L500.2500, L300.3900, L300.4310 ####[facility] [address] [place], [address] Eosinophils/100 WBC (Bld) 2.8 % Normal 0-5 [facility] Comment on above: Performed By: #### L 501.4020, L100.0100, L500.2500, L300.3900, L300.4310 ####[facility] [address] [place], [address] Erythrocyte distribution width (RBC) [Ratio] 12.9 % Normal 11.6-14.6 [facility] Comment on above: Performed By: #### L 501.4020, L100.0100, L500.2500, L300.3900, L300.4310 ####[facility] [address] [place], [address] Hematocrit (Bld) [Volume fraction] 33.7 % Low 37-47 [facility] Comment on above: Performed By: #### L 501.4020, L100.0100, L500.2500, L300.3900, L300.4310 ####[facility] [address] [place], [address] Hemoglobin (Bld) [Mass/Vol] 11.5 g/dL Low 12.0-15.0 [facility] Comment on above: Performed By: #### L 501.4020, L100.0100, L500.2500, L300.3900, L300.4310 ####[facility] [address] [place], [address] IG% 0.400 Normal 0.0-0.9 [facility] Comment on above: Result Comment: IG% - Immature Granulocytes (promyelocytes, myelocytes andmetamyelocytes) > 1% indicates that a LEFT SHIFT is Present. Performed By: #### L 501.4020, L100.0100, L500.2500, L300.3900, L300.4310 ####[facility] [address] [place], [address] Lymphocytes/100 WBC (Bld) 11.8 % Low 19-41 [facility] Comment on above: Performed By: #### L 501.4020, L100.0100, L500.2500, L300.3900, L300.4310 ####[facility] [address] [place], [address] MCH (RBC) [Entitic mass] 32.2 pg High 27.0-32.0 [facility] Comment on above: Performed By: #### L 501.4020, L100.0100, L500.2500, L300.3900, L300.4310 ####[facility] [address] [place], [address] MCHC (RBC) [Mass/Vol] 34.1 g/dL Normal 32-36 [facility] Comment on above: Performed By: #### L 501.4020, L100.0100, L500.2500, L300.3900, L300.4310 ####[facility] [address] [place], [address] MCV (RBC) [Entitic vol] 94.4 fL Normal 81-99 [facility] Comment on above: Performed By: #### L 501.4020, L100.0100, L500.2500, L300.3900, L300.4310 ####[facility] [address] [place], [address] Monocytes/100 WBC (Bld) 8.7 % Normal 0-10 [facility] Comment on above: Performed By: #### L 501.4020, L100.0100, L500.2500, L300.3900, L300.4310 ####[facility] [address] [place], [address] Neutrophils/100 WBC (Bld) 75.8 % High 47-70 [facility] Comment on above: Performed By: #### L 501.4020, L100.0100, L500.2500, L300.3900, L300.4310 ####[facility] [address] [place], [address] Nucleated RBC (Bld) [#/Vol] 0 10*3/uL Normal 0-5 [facility] Comment on above: Performed By: #### L 501.4020, L100.0100, L500.2500, L300.3900, L300.4310 ####[facility] [address] [place], [address] Platelet mean volume (Bld) [Entitic vol] 10.0 fL Normal 6.2-12.0 [facility] Comment on above: Performed By: #### L 501.4020, L100.0100, L500.2500, L300.3900, L300.4310 ####[facility] [address] [place], [address] Platelets (Bld) [#/Vol] 278 10*3/uL Normal 150-450 [facility] Comment on above: Performed By: #### L 501.4020, L100.0100, L500.2500, L300.3900, L300.4310 ####[facility] [address] [place], [address] RBC (Bld) [#/Vol] 3.57 10*6/uL Low 4.2-5.4 [facility] Comment on above: Performed By: #### L 501.4020, L100.0100, L500.2500, L300.3900, L300.4310 ####[facility] [address] [place], [address] RDW SD 44.3 fl High 35.1-43.9 [facility] Comment on above: Performed By: #### L 501.4020, L100.0100, L500.2500, L300.3900, L300.4310 ####[facility] [address] [place], [address] WBC (Bld) [#/Vol] 10.6 10*3/uL Normal 4.4-11.0 [facility] Comment on above: Performed By: #### L 501.4020, L100.0100, L500.2500, L300.3900, L300.4310 ####[facility] [address] [place], [address] Carotid Duplex Ultrasoundon 08-25-2024 Carotid Duplex Ultrasound Normal [facility] Chest 1 Viewon 08-25-2024 Chest 1 View Normal [facility] Emergency Department Summary on 08-25-2024 Emergency Department Summary Normal [facility] H AND P Exam - Hospitaliston 08-25-2024 H&P Exam - Hospitalist Normal [facility] L501.4020on 08-25-2024 TROPONIN-I HS 7 pg/mL Normal 3.0-54.0 [facility] Comment on above: Order Comment: 'TROP ' Serial specimen #1, #2 or #3: 1 Result Comment: Leticia em Note: New Test Units and Gender Specific Reference Ranges. For more information see Policy Stat Procedure [place] High Sensitivity Troponin (TNIH) and attachments. Performed By: #### L 501.4020, L100.0100, L500.2500, L300.3900, L300.4310 ####[facility] [address] [place], [address] Partial Thromboplast Timeon 08-25-2024 aPTT Coag (Bld) [Time] 23.0 s Low 24.1-36.2 [facility] Comment on above: Performed By: #### L 501.4020, L100.0100, L500.2500, L300.3900, L300.4310 ####[facility] [address] [place], [address] Prothrombin Time w/INRon INR Coag (PPP) [Relative time] 1.1 {INR} Normal [facility] Comment on above: Performed By: #### L 501.4020, L100.0100, L500.2500, L300.3900, L300.4310 ####[facility] [address] [place], [address] PT Coag (PPP) [Time] 14.1 s Normal 11.7-14.9 [facility] Comment on above: Performed By: #### L 501.4020, L100.0100, L500.2500, L300.3900, L300.4310 ####[facility] [address] [place], [address] STROKE Brain/Head without Co nton 08-25-2024 STROKE Brain/Head without Cont Normal [facility] STROKE CTA Head AND Neck W/C onon 08-25-2024 STROKE CTA Head AND Neck W/Con Normal [facility] Urinalysis, Completeon 08-25 EPI,SQUAMOUS 5-10 SEEN Normal 5-10 [facility] Comment on above: Order Comment: COLLE CTOR TO SPECIFY Performed By: #### L 400.0001 ####[facility] [address] [place], [address] RBC 0-5 SEEN Normal 0-5 [facility] Comment on above: Order Comment: COLLE CTOR TO SPECIFY Performed By: #### L 400.0001 ####[facility] [address] [place], [address] WBC >100 SEEN Normal 0-5 [facility] Comment on above: Order Comment: COLLE CTOR TO SPECIFY Performed By: #### L 400.0001 ####[facility] [address] [place], [address] YEAST 4+ /hpf Normal None Seen [facility] Comment on above: Order Comment: COLLE CTOR TO SPECIFY Performed By: #### L 400.0001 ####[facility] [address] [place], [address] BACTERIA 0 SEEN Normal None Seen [facility] Comment on above: Order Comment: ERICKSON CTOR TO SPECIFY Performed By: #### L 400.0001 ####[facility] [address] [place], [address] Mucus Ql (Urine sed) 0 SEEN Normal [facility] Comment on above: Order Comment: ERICKSON CTOR TO SPECIFY Performed By: #### L 400.0001 ####[facility] [address] [place], [address] Bedside Glucoseon 08-24-2024 FINGERSTICK GLU 248 mg/dL High 74-106 [facility] Comment on above: Result Comment: OLGA GEMENT OF PATIENT CARE PER NURSING PROTOCOL Performed By: #### L 501.080 ####[facility] [address] [place], [address] FINGERSTICK GLU 234 mg/dL High 74-106 [facility] Comment on above: Result Comment: OLGA GEMENT OF PATIENT CARE PER NURSING PROTOCOL Performed By: #### L 501.080 ####[facility] [address] [place], [address] FINGERSTICK GLU 332 mg/dL High 74-106 [facility] Comment on above: Result Comment: OLGA GEMENT OF PATIENT CARE PER NURSING PROTOCOL Performed By: #### L 501.080 ####[facility] [address] [place], [address] FINGERSTICK GLU 185 mg/dL High 74-106 [facility] Comment on above: Result Comment: OLGA GEMENT OF PATIENT CARE PER NURSING PROTOCOL Performed By: #### L 501.080 ####[facility] [address] [place], [address] Bedside Glucoseon 08-23-2024 FINGERSTICK GLU 132 mg/dL High [facility]106 [facility] Comment on above: Result Comment: OLGA GEMENT OF PATIENT CARE PER NURSING PROTOCOL Performed By: #### L 501.080 ####[facility] [address] [place], [address] FINGERSTICK GLU 117 mg/dL [address] Comment on above: Result Comment: OLGA GEMENT OF PATIENT CARE PER NURSING PROTOCOL Performed By: #### L 501.080 ####[facility] [address] [place], [address] FINGERSTICK GLU 225 mg/dL High [facility]106 [facility] Comment on above: Result Comment: OLGA GEMENT OF PATIENT CARE PER NURSING PROTOCOL Performed By: #### L 501.080 ####[facility] [address] [place], [address] FINGERSTICK GLU 227 mg/dL High [address] [place] [address] Comment on above: Result Comment: OLGA GEMENT OF PATIENT CARE PER NURSING PROTOCOL Performed By: #### L 501.080 ####[facility] [address] [place], [address] Basic Metabolic Profile (BMP )on 08-22-2024 BUN/CRE 25.1 RATIO High 10-20 [facility] Comment on above: Performed By: #### L 100.0100, L500.2500 ####[facility] [address] [place], [address] CA,Total 9.1 mg/dL Normal 8.5-10.1 [facility] Comment on above: Performed By: #### L 100.0100, L500.2500 ####[facility] [address] [place], [address] Chloride [Moles/Vol] 105 mmol/L Normal 98-107 [facility] Comment on above: Performed By: #### L 100.0100, L500.2500 ####[facility] [address] [place], [address] CO2 [Moles/Vol] 28.0 mmol/L Normal 21.0-32.0 [facility] Comment on above: Performed By: #### L 100.0100, L500.2500 ####[facility] [address] [place], [address] Creatinine [Mass/Vol] 0.84 mg/dL Normal 0.55-1.02 [facility] Comment on above: Result Comment: The validity of the calculated GFR GFRAA in patients over70 years has not been determined. Clinical correlation isessential. Performed By: #### L 100.0100, L500.2500 ####[facility] [address] [place], [address] ECRCL 47.65 ml/min Normal [facility] Comment on above: Performed By: #### L 100.0100, L500.2500 ####[facility] [address] [place], [address] EST GFR - AA 84 mL/min Normal >60 [facility] Comment on above: Result Comment: Afri can Latvian GFR Calc Performed By: #### L 100.0100, L500.2500 ####[facility] [address] [place], [address] GAP 5 Normal 5-15 [facility] Comment on above: Performed By: #### L 100.0100, L500.2500 ####[facility] [address] [place], [address] GFR/1.73 sq M.predicted among non-blacks MDRD (S/P/Bld) [Vol rate/Area] 69 mL/min/{1.73_m2} Normal >60 [facility] Comment on above: Result Comment: Non- GFR Calc Performed By: #### L 100.0100, L500.2500 ####[facility] [address] [place], [address] Glucose [Mass/Vol] 181 mg/dL High 74-106 [facility] Comment on above: Result Comment: Fast ing Glucose result greater than or equal to 126 mg/dLsuggests DIABETES MELLITUS per A.D.A. criteria. Performed By: #### L 100.0100, L500.2500 ####[facility] [address] [place], [address] Potassium [Moles/Vol] 4.0 mmol/L Normal 3.5-5.1 [facility] Comment on above: Performed By: #### L 100.0100, L500.2500 ####[facility] [address] [place], [address] Sodium [Moles/Vol] 138 mmol/L Normal 136-145 [facility] Comment on above: Performed By: #### L 100.0100, L500.2500 ####[facility] [address] [place], [address] Urea nitrogen [Mass/Vol] 21 mg/dL High 7-18 [facility] Comment on above: Performed By: #### L 100.0100, L500.2500 ####[facility] [address] [place], [address] Bedside Glucoseon 08-22-2024 FINGERSTICK GLU 141 mg/dL High 74-106 [facility] Comment on above: Result Comment: OLGA GEMENT OF PATIENT CARE PER NURSING PROTOCOL Performed By: #### L 501.080 ####[facility] [address] [place], [address] FINGERSTICK GLU 147 mg/dL High 74-106 [facility] Comment on above: Result Comment: OLGA GEMENT OF PATIENT CARE PER NURSING PROTOCOL Performed By: #### L 501.080 ####[facility] [address] [place], [address] FINGERSTICK GLU 216 mg/dL High 74-106 [facility] Comment on above: Result Comment: OLGA GEMENT OF PATIENT CARE PER NURSING PROTOCOL Performed By: #### L 501.080 ####[facility] [address] [place], [address] FINGERSTICK GLU 163 mg/dL High 74-106 [facility] Comment on above: Result Comment: OLGA GEMENT OF PATIENT CARE PER NURSING PROTOCOL Performed By: #### L 501.080 ####[facility] [address] [place], [address] CBC W/Diff, Automatedon 01-1 0-2025 Absolute Lymph 1.53 X10 3/uL Normal 0.83-4.51 [facility] Comment on above: Performed By: #### L 100.0100, L500.2500 ####[facility] [address] [place], [address] Absolute Neut 3.6 X10 3/uL Normal 2.0-7.7 [facility] Comment on above: Performed By: #### L 100.0100, L500.2500 ####[facility] [address] [place], [address] Basophils/100 WBC (Bld) 0.8 % Normal 0-1 [facility] Comment on above: Performed By: #### L 100.0100, L500.2500 ####[facility] [address] [place], [address] Eosinophils/100 WBC (Bld) 6.1 % High 0-5 [facility] Comment on above: Performed By: #### L 100.0100, L500.2500 ####[facility] [address] [place], [address] Erythrocyte distribution width (RBC) [Ratio] 12.9 % Normal 11.6-14.6 [facility] Comment on above: Performed By: #### L 100.0100, L500.2500 ####[facility] [address] [place], [address] Hematocrit (Bld) [Volume fraction] 35.4 % Low 37-47 [facility] Comment on above: Performed By: #### L 100.0100, L500.2500 ####[facility] [address] [place], [address] Hemoglobin (Bld) [Mass/Vol] 11.8 g/dL Low 12.0-15.0 [facility] Comment on above: Performed By: #### L 100.0100, L500.2500 ####[facility] [address] [place], [address] IG% 0.300 Normal 0.0-0.9 [facility] Comment on above: Result Comment: IG% - Immature Granulocytes (promyelocytes, myelocytes andmetamyelocytes) > 1% indicates that a LEFT SHIFT is Present. Performed By: #### L 100.0100, L500.2500 ####[facility] [address] [place], [address] Lymphocytes/100 WBC (Bld) 24.4 % Normal 19-41 [facility] Comment on above: Performed By: #### L 100.0100, L500.2500 ####[facility] [address] [place], [address] MCH (RBC) [Entitic mass] 31.7 pg Normal 27.0-32.0 [facility] Comment on above: Performed By: #### L 100.0100, L500.2500 ####[facility] [address] [place], [address] MCHC (RBC) [Mass/Vol] 33.3 g/dL Normal 32-36 [facility] Comment on above: Performed By: #### L 100.0100, L500.2500 ####[facility] [address] [place], [address] MCV (RBC) [Entitic vol] 95.2 fL Normal 81-99 [facility] Comment on above: Performed By: #### L 100.0100, L500.2500 ####[facility] [address] [place], [address] Monocytes/100 WBC (Bld) 11.8 % High 0-10 [facility] Comment on above: Performed By: #### L 100.0100, L500.2500 ####[facility] [address] [place], [address] Neutrophils/100 WBC (Bld) 56.6 % Normal 47-70 [facility] Comment on above: Performed By: #### L 100.0100, L500.2500 ####[facility] [address] [place], [address] Nucleated RBC (Bld) [#/Vol] 0 10*3/uL Normal 0-5 [facility] Comment on above: Performed By: #### L 100.0100, L500.2500 ####[facility] [address] [place], [address] Platelet mean volume (Bld) [Entitic vol] 9.9 fL Normal 6.2-12.0 [facility] Comment on above: Performed By: #### L 100.0100, L500.2500 ####[facility] [address] [place], [address] Platelets (Bld) [#/Vol] 263 10*3/uL Normal 150-450 [facility] Comment on above: Performed By: #### L 100.0100, L500.2500 ####[facility] [address] [place], [address] RBC (Bld) [#/Vol] 3.72 10*6/uL Low 4.2-5.4 [facility] Comment on above: Performed By: #### L 100.0100, L500.2500 ####[facility] [address] [place], [address] RDW SD 44.8 fl High 35.1-43.9 [facility] Comment on above: Performed By: #### L 100.0100, L500.2500 ####[facility] [address] [place], [address] WBC (Bld) [#/Vol] 6.3 10*3/uL Normal 4.4-11.0 [facility] Comment on above: Performed By: #### L 100.0100, L500.2500 ####[facility] [address] [place], [address] Bedside Glucoseon 08-21-2024 FINGERSTICK GLU 178 mg/dL High 74-106 [facility] Comment on above: Result Comment: OLGA GEMENT OF PATIENT CARE PER NURSING PROTOCOL Performed By: #### L 501.080 ####[facility] [address] [place], [address] FINGERSTICK GLU 175 mg/dL High 74-106 [facility] Comment on above: Result Comment: OLGA GEMENT OF PATIENT CARE PER NURSING PROTOCOL Performed By: #### L 501.080 ####[facility] [address] [place], [address] FINGERSTICK GLU 224 mg/dL High 74-106 [facility] Comment on above: Result Comment: OLGA GEMENT OF PATIENT CARE PER NURSING PROTOCOL Performed By: #### L 501.080 ####[facility] [address] [place], [address] FINGERSTICK GLU 182 mg/dL High 74-106 [facility] Comment on above: Result Comment: OLGA GEMENT OF PATIENT CARE PER NURSING PROTOCOL Performed By: #### L 501.080 ####[facility] [address] [place], [address] Bedside Glucoseon 08-20-2024 FINGERSTICK GLU 118 mg/dL High -[address] [place] [address] Comment on above: Result Comment: OLGA GEMENT OF PATIENT CARE PER NURSING PROTOCOL Performed By: #### L 501.080 ####[facility] [address] [facility] [address] FINGERSTICK GLU 151 mg/dL High 74-[address] [place] [address] Comment on above: Result Comment: OLGA GEMENT OF PATIENT CARE PER NURSING PROTOCOL Performed By: #### L 501.080 ####[facility] [address] [place], [address] FINGERSTICK GLU 372 mg/dL High -[address] [place] [address] Comment on above: Result Comment: OLGA GEMENT OF PATIENT CARE PER NURSING PROTOCOL Performed By: #### L 501.080 ####[facility] [address] [place], [address] FINGERSTICK GLU 179 mg/dL High -[address] [place] [address] Comment on above: Result Comment: OLGA GEMENT OF PATIENT CARE PER NURSING PROTOCOL Performed By: #### L 501.080 ####[facility] [address] [place], [address] Bedside Glucoseon 08-19-2024 FINGERSTICK GLU 105 mg/dL Normal 74-106 [facility] Comment on above: Result Comment: OLGA GEMENT OF PATIENT CARE PER NURSING PROTOCOL Performed By: #### L 501.080 ####[facility] [address] [place], [address] FINGERSTICK GLU 155 mg/dL High [address] [place] [address] Comment on above: Result Comment: OLGA GEMENT OF PATIENT CARE PER NURSING PROTOCOL Performed By: #### L 501.080 ####[facility] [address] [place], [address] FINGERSTICK GLU 316 mg/dL High [address] [place] [address] Comment on above: Result Comment: OLGA GEMENT OF PATIENT CARE PER NURSING PROTOCOL Performed By: #### L 501.080 ####[facility] [address] [place], [address] FINGERSTICK GLU 210 mg/dL High [address] [place] [address] Comment on above: Result Comment: OLGA GEMENT OF PATIENT CARE PER NURSING PROTOCOL Performed By: #### L 501.080 ####[facility] [address] [place], [address] Bedside Glucoseon 08-18-2024 FINGERSTICK GLU 243 mg/dL High [address] [place] [address] Comment on above: Result Comment: OLGA GEMENT OF PATIENT CARE PER NURSING PROTOCOL Performed By: #### L 501.080 ####[facility] [address] [place], [address] FINGERSTICK GLU 229 mg/dL High [address] [place] [address] Comment on above: Result Comment: LOGA GEMENT OF PATIENT CARE PER NURSING PROTOCOL Performed By: #### L 501.080 ####[facility] [address] [place], [address] FINGERSTICK GLU 333 mg/dL High [address] [place] [address] Comment on above: Result Comment: OLGA GEMENT OF PATIENT CARE PER NURSING PROTOCOL Performed By: #### L 501.080 ####[facility] [address] [place], [address] FINGERSTICK GLU 279 mg/dL High 74-106 [facility] Comment on above: Result Comment: OLGA GEMENT OF PATIENT CARE PER NURSING PROTOCOL Performed By: #### L 501.080 ####[facility] [address] [place], [address] Vitamin D,25 Hydroxyon 08-18 Vitamin D 25-OH 43.3 ng/mL Normal [facility] Comment on above: Result Comment: Shamika min D 25(OH) Status Range Deficiency <20 ng/mL (50nmol/L) Insufficiency 20 - 30 ng/mL (50 - 75 nmol/L) Sufficiency 30 - 100 ng/mL (75 - 250 nmol/L) Toxicity >100 ng/mL (>250 nmol/L) Performed By: #### L 506.1000 ####[facility] [address] [place], [address] Bedside Glucoseon 08-17-2024 FINGERSTICK GLU 272 mg/dL High [address] [place] [address] Comment on above: Result Comment: OLGA GEMENT OF PATIENT CARE PER NURSING PROTOCOL Performed By: #### L 501.080 ####[facility] [address] [place], [address] FINGERSTICK GLU 303 mg/dL High [address] [place] [address] Comment on above: Result Comment: OLGA GEMENT OF PATIENT CARE PER NURSING PROTOCOL Performed By: #### L 501.080 ####[facility] [address] [place], [address] FINGERSTICK GLU 248 mg/dL High [address] [place] [address] Comment on above: Result Comment: OLGA GEMENT OF PATIENT CARE PER NURSING PROTOCOL Performed By: #### L 501.080 ####[facility] [address] [place], [address] FINGERSTICK GLU 337 mg/dL High -106 [facility] Comment on above: Result Comment: OLGA GEMENT OF PATIENT CARE PER NURSING PROTOCOL Performed By: #### L 501.080 ####[facility] [address] [place], [address] FINGERSTICK GLU 268 mg/dL High 74-106 [facility] Comment on above: Result Comment: OLGA GEMENT OF PATIENT CARE PER NURSING PROTOCOL Performed By: #### L 501.080 ####[facility] [address] [place], [address] Bedside Glucoseon 08-16-2024 FINGERSTICK GLU 317 mg/dL High 74-106 [facility] Comment on above: Result Comment: OLGA GEMENT OF PATIENT CARE PER NURSING PROTOCOL Performed By: #### L 501.080 ####[facility] [address] [place], [address] FINGERSTICK GLU 74 mg/dL Normal 74-106 [facility] Comment on above: Result Comment: OLGA GEMENT OF PATIENT CARE PER NURSING PROTOCOL Performed By: #### L 501.080 ####[facility] [address] [place], [address] FINGERSTICK GLU 58 mg/dL Low 74-106 [facility] Comment on above: Result Comment: OLGA GEMENT OF PATIENT CARE PER NURSING PROTOCOL Performed By: #### L 501.080 ####[facility] [address] [place], [address] FINGERSTICK GLU 45 mg/dL Low 74-106 [facility] Comment on above: Result Comment: OLGA GEMENT OF PATIENT CARE PER NURSING PROTOCOL Performed By: #### L 501.080 ####[facility] [address] [place], [address] FINGERSTICK GLU 214 mg/dL High 74-106 [facility] Comment on above: Result Comment: OLGA GEMENT OF PATIENT CARE PER NURSING PROTOCOL Performed By: #### L 501.080 ####[facility] [address] [place], [address] FINGERSTICK GLU 194 mg/dL High 74-106 [facility] Comment on above: Result Comment: OLGA GOMEZ OF PATIENT CARE PER NURSING PROTOCOL Performed By: #### L 501.080 ####[facility] [address] [place], [address] Basic Metabolic Profile (BMP )on 08-15-2024 BUN/CRE 27.6 RATIO High 10-20 [facility] Comment on above: Performed By: #### L 500.4100, L500.2500, L100.0100 ####[facility] [address] [place], [address] CA,Total 9.2 mg/dL Normal 8.5-10.1 [facility] Comment on above: Performed By: #### L 500.4100, L500.2500, L100.0100 ####[facility] [address] [place], [address] Chloride [Moles/Vol] 104 mmol/L Normal 98-107 [facility] Comment on above: Performed By: #### L 500.4100, L500.2500, L100.0100 ####[facility] [address] [place], [address] CO2 [Moles/Vol] 27.0 mmol/L Normal 21.0-32.0 [facility] Comment on above: Performed By: #### L 500.4100, L500.2500, L100.0100 ####[facility] [address] [place], [address] Creatinine [Mass/Vol] 0.83 mg/dL Normal 0.55-1.02 [facility] Comment on above: Result Comment: The validity of the calculated GFR GFRAA in patients over70 years has not been determined. Clinical correlation isessential. Performed By: #### L 500.4100, L500.2500, L100.0100 ####[facility] [address] [place], [address] ECRCL 48.36 ml/min Normal [facility] Comment on above: Performed By: #### L 500.4100, L500.2500, L100.0100 ####[facility] [address] [place], [address] EST GFR - AA 84 mL/min Normal >60 [facility] Comment on above: Result Comment: Afri can Latvian GFR Calc Performed By: #### L 500.4100, L500.2500, L100.0100 ####[facility] [address] [place], [address] GAP 6 Normal 5-15 [facility] Comment on above: Performed By: #### L 500.4100, L500.2500, L100.0100 ####[facility] [address] [place], [address] GFR/1.73 sq M.predicted among non-blacks MDRD (S/P/Bld) [Vol rate/Area] 70 mL/min/{1.73_m2} Normal >60 [facility] Comment on above: Result Comment: Non- GFR Calc Performed By: #### L 500.4100, L500.2500, L100.0100 ####[facility] [address] [place], [address] Glucose [Mass/Vol] 198 mg/dL High 74-106 [facility] Comment on above: Result Comment: Fast ing Glucose result greater than or equal to 126 mg/dLsuggests DIABETES MELLITUS per A.D.A. criteria. Performed By: #### L 500.4100, L500.2500, L100.0100 ####[facility] [address] [place], [address] Potassium [Moles/Vol] 4.1 mmol/L Normal 3.5-5.1 [facility] Comment on above: Performed By: #### L 500.4100, L500.2500, L100.0100 ####[facility] [address] [place], [address] Sodium [Moles/Vol] 136 mmol/L Normal 136-145 [facility] Comment on above: Performed By: #### L 500.4100, L500.2500, L100.0100 ####[facility] [address] [place], [address] Urea nitrogen [Mass/Vol] 23 mg/dL High 7-18 [facility] Comment on above: Performed By: #### L 500.4100, L500.2500, L100.0100 ####[facility] [address] [place], [address] Bedside Glucoseon 08-15-2024 FINGERSTICK GLU 238 mg/dL High 74-106 [facility] Comment on above: Result Comment: OLGA GEMENT OF PATIENT CARE PER NURSING PROTOCOL Performed By: #### L 501.080 ####[facility] [address] [place], [address] FINGERSTICK GLU 131 mg/dL High 74-106 [facility] Comment on above: Result Comment: OLGA GEMENT OF PATIENT CARE PER NURSING PROTOCOL Performed By: #### L 501.080 ####[facility] [address] [place], [address] FINGERSTICK GLU 212 mg/dL High 74-106 [facility] Comment on above: Result Comment: OLGA GEMENT OF PATIENT CARE PER NURSING PROTOCOL Performed By: #### L 501.080 ####[facility] [address] [place], [address] FINGERSTICK GLU 183 mg/dL High 74-106 [facility] Comment on above: Result Comment: OLGA GEMENT OF PATIENT CARE PER NURSING PROTOCOL Performed By: #### L 501.080 ####[facility] [address] [place], [address] CBC W/Diff, Automatedon 01-0 3-2024 Absolute Lymph 1.54 X10 3/uL Normal 0.83-4.51 [facility] Comment on above: Performed By: #### L 500.4100, L500.2500, L100.0100 ####[facility] [address] [place], [address] Absolute Neut 5.3 X10 3/uL Normal 2.0-7.7 [facility] Comment on above: Performed By: #### L 500.4100, L500.2500, L100.0100 ####[facility] [address] [place], [address] Basophils/100 WBC (Bld) 0.7 % Normal 0-1 [facility] Comment on above: Performed By: #### L 500.4100, L500.2500, L100.0100 ####[facility] [address] [place], [address] Eosinophils/100 WBC (Bld) 5.3 % High 0-5 [facility] Comment on above: Performed By: #### L 500.4100, L500.2500, L100.0100 ####[facility] [address] [place], [address] Erythrocyte distribution width (RBC) [Ratio] 13.1 % Normal 11.6-14.6 [facility] Comment on above: Performed By: #### L 500.4100, L500.2500, L100.0100 ####[facility] [address] [place], [address] Hematocrit (Bld) [Volume fraction] 37.6 % Normal 37-47 [facility] Comment on above: Performed By: #### L 500.4100, L500.2500, L100.0100 ####[facility] [address] [place], [address] Hemoglobin (Bld) [Mass/Vol] 12.7 g/dL Normal 12.0-15.0 [facility] Comment on above: Performed By: #### L 500.4100, L500.2500, L100.0100 ####[facility] [address] [place], [address] IG% 0.200 Normal 0.0-0.9 [facility] Comment on above: Result Comment: IG% - Immature Granulocytes (promyelocytes, myelocytes andmetamyelocytes) > 1% indicates that a LEFT SHIFT is Present. Performed By: #### L 500.4100, L500.2500, L100.0100 ####[facility] [address] [place], [address] Lymphocytes/100 WBC (Bld) 19.0 % Normal 19-41 [facility] Comment on above: Performed By: #### L 500.4100, L500.2500, L100.0100 ####[facility] [address] [place], [address] MCH (RBC) [Entitic mass] 31.9 pg Normal 27.0-32.0 [facility] Comment on above: Performed By: #### L 500.4100, L500.2500, L100.0100 ####[facility] [address] [place], [address] MCHC (RBC) [Mass/Vol] 33.8 g/dL Normal 32-36 [facility] Comment on above: Performed By: #### L 500.4100, L500.2500, L100.0100 ####[facility] [address] [place], [address] MCV (RBC) [Entitic vol] 94.5 fL Normal 81-99 [facility] Comment on above: Performed By: #### L 500.4100, L500.2500, L100.0100 ####[facility] [address] [place], [address] Monocytes/100 WBC (Bld) 10.1 % High 0-10 [facility] Comment on above: Performed By: #### L 500.4100, L500.2500, L100.0100 ####[facility] [address] [place], [address] Neutrophils/100 WBC (Bld) 64.7 % Normal 47-70 [facility] Comment on above: Performed By: #### L 500.4100, L500.2500, L100.0100 ####[facility] [address] [place], [address] Nucleated RBC (Bld) [#/Vol] 0 10*3/uL Normal 0-5 [facility] Comment on above: Performed By: #### L 500.4100, L500.2500, L100.0100 ####[facility] [address] [place], [address] Platelet mean volume (Bld) [Entitic vol] 9.9 fL Normal 6.2-12.0 [facility] Comment on above: Performed By: #### L 500.4100, L500.2500, L100.0100 ####[facility] [address] [place], [address] Platelets (Bld) [#/Vol] 270 10*3/uL Normal 150-450 [facility] Comment on above: Performed By: #### L 500.4100, L500.2500, L100.0100 ####[facility] [address] [place], [address] RBC (Bld) [#/Vol] 3.98 10*6/uL Low 4.2-5.4 [facility] Comment on above: Performed By: #### L 500.4100, L500.2500, L100.0100 ####[facility] [address] [place], [address] RDW SD 45.0 fl High 35.1-43.9 [facility] Comment on above: Performed By: #### L 500.4100, L500.2500, L100.0100 ####[facility] [address] [place], [address] WBC (Bld) [#/Vol] 8.1 10*3/uL Normal 4.4-11.0 [facility] Comment on above: Performed By: #### L 500.4100, L500.2500, L100.0100 ####[facility] [address] [place], [address] Lipid Profileon 08-15-2024 Cholesterol [Mass/Vol] 165 mg/dL Normal 200 [facility] Comment on above: Result Comment: <200 mg/dL Desirable 200-240 mg/dL Borderline >240 mg/dL High Risk Performed By: #### L 500.4100, L500.2500, L100.0100 ####[facility] [address] [place], [address] Cholesterol in HDL [Mass/Vol] 61 mg/dL Normal [facility] Comment on above: Result Comment: The drugs N-Acetylcysteine and Metamizole may falselydepress this assay. Reference Range HDL <40 mg/dL Low HDL Cholesterol HDL >or= 60 mg/dL High HDL Cholesterol Performed By: #### L 500.4100, L500.2500, L100.0100 ####[facility] [address] [place], [address] Cholesterol in LDL [Mass/Vol] 75 mg/dL Normal 0-130 [facility] Comment on above: Performed By: #### L 500.4100, L500.2500, L100.0100 ####[facility] [address] [place], [address] Cholesterol in VLDL [Mass/Vol] 29 mg/dL Normal 5-40 [facility] Comment on above: Performed By: #### L 500.4100, L500.2500, L100.0100 ####[facility] [address] [place], [address] Triglyceride [Mass/Vol] 147 mg/dL Normal [facility] Comment on above: Result Comment: The drugs N-Acetylcysteine and Metamizole may falselydepress this assay.Serum Triglycerides Reference Interval Normal <150 mg/dL Borderline high 150 - 199 mg/dL High 200 - 499 mg/dL Very High > or = 500 mg/dL Performed By: #### L 500.4100, L500.2500, L100.0100 ####[facility] [address] [place], [address] Bedside Glucoseon 08-14-2024 FINGERSTICK GLU 153 mg/dL High 74-106 [facility] Comment on above: Result Comment: OLGA GEMENT OF PATIENT CARE PER NURSING PROTOCOL Performed By: #### L 501.080 ####[facility] [address] [place], [address] FINGERSTICK GLU 147 mg/dL High 74-106 [facility] Comment on above: Result Comment: OLGA GEMENT OF PATIENT CARE PER NURSING PROTOCOL Performed By: #### L 501.080 ####[facility] [address] [place], [address] FINGERSTICK GLU 209 mg/dL High 74-106 [facility] Comment on above: Result Comment: OLGA GEMENT OF PATIENT CARE PER NURSING PROTOCOL Performed By: #### L 501.080 ####[facility] [address] [place], [address] FINGERSTICK GLU 231 mg/dL High 74-106 [facility] Comment on above: Result Comment: OLGA GEMENT OF PATIENT CARE PER NURSING PROTOCOL Performed By: #### L 501.080 ####[facility] [address] [place], [address] Bedside Glucoseon 08-13-2024 FINGERSTICK GLU 258 mg/dL High 74-106 [facility] Comment on above: Result Comment: OLGA GEMENT OF PATIENT CARE PER NURSING PROTOCOL Performed By: #### L 501.080 ####[facility] [address] [place], [address] FINGERSTICK GLU 146 mg/dL High 74-106 [facility] Comment on above: Result Comment: OLGA GEMENT OF PATIENT CARE PER NURSING PROTOCOL Performed By: #### L 501.080 ####[facility] [id number] [place], [address] FINGERSTICK GLU 79 mg/dL Normal 74-106 [facility] Comment on above: Result Comment: OLGA GEMENT OF PATIENT CARE PER NURSING PROTOCOL Performed By: #### L 501.080 ####[facility] [address] [place], [address] FINGERSTICK GLU 63 mg/dL Low 74-106 [facility] Comment on above: Result Comment: OLGA GEMENT OF PATIENT CARE PER NURSING PROTOCOL Performed By: #### L 501.080 ####[facility] [address] [place], [address] FINGERSTICK GLU 78 mg/dL Normal 74-106 [facility] Comment on above: Result Comment: OLGA GEMENT OF PATIENT CARE PER NURSING PROTOCOL Performed By: #### L 501.080 ####[facility] [id number] [place], [address] FINGERSTICK GLU 234 mg/dL High 74-106 [facility] Comment on above: Result Comment: OLGA GEMENT OF PATIENT CARE PER NURSING PROTOCOL Performed By: #### L 501.080 ####[facility] [address] [place], [address] FINGERSTICK GLU 125 mg/dL High 74-106 [facility] Comment on above: Result Comment: OLGA GEMENT OF PATIENT CARE PER NURSING PROTOCOL Performed By: #### L 501.080 ####[facility] [address] [place], [address] CTA Head AND Neck W/ Contras ton 08-13-2024 CTA Head AND Neck W/ Contrast Normal [facility] Thyroid Peroxidase ABon 01-0 THYR PEROX AB 12 IU/mL Normal 0-34 [facility] Comment on above: Result Comment: Perf ormed at: - [facility] [address] [id number] Director: Marco Antonio Diaz PhD, Phone: [phone] Performed By: #### L 4891.7412 ####[facility] [address] [place], [address] Bedside Glucoseon 08-12-2024 FINGERSTICK GLU 157 mg/dL High [address] [facility] Comment on above: Result Comment: OLGA GEMENT OF PATIENT CARE PER NURSING PROTOCOL Performed By: #### L 501.080 ####[facility] [address] [place], [address] FINGERSTICK GLU 195 mg/dL High -106 [facility] Comment on above: Result Comment: OLGA GEMENT OF PATIENT CARE PER NURSING PROTOCOL Performed By: #### L 501.080 ####[facility] [address] [place], [address] FINGERSTICK GLU 324 mg/dL High 74-106 [facility] Comment on above: Result Comment: OLGA GEMENT OF PATIENT CARE PER NURSING PROTOCOL Performed By: #### L 501.080 ####[facility] [address] [place], [address] FINGERSTICK GLU 137 mg/dL High [facility]106 [facility] Comment on above: Result Comment: OLGA GEMENT OF PATIENT CARE PER NURSING PROTOCOL Performed By: #### L 501.080 ####[facility] [address] [place], [address] Brain without Contraston Brain without Contrast Normal [facility] Bedside Glucoseon 08-11-2024 FINGERSTICK GLU 173 mg/dL High 74-106 [facility] Comment on above: Result Comment: OLGA GEMENT OF PATIENT CARE PER NURSING PROTOCOL Performed By: #### L 501.080 ####[facility] [address] [place], [address] FINGERSTICK GLU 152 mg/dL High 74-106 [facility] Comment on above: Result Comment: OLGA GEMENT OF PATIENT CARE PER NURSING PROTOCOL Performed By: #### L 501.080 ####[facility] [address] [place], [address] FINGERSTICK GLU 333 mg/dL High -106 [facility] Comment on above: Result Comment: OLGA GEMENT OF PATIENT CARE PER NURSING PROTOCOL Performed By: #### L 501.080 ####[facility] [address] [place], [address] FINGERSTICK GLU 190 mg/dL High -106 [facility] Comment on above: Result Comment: OLGA GEMENT OF PATIENT CARE PER NURSING PROTOCOL Performed By: #### L 501.080 ####[facility] [address] [place], [address] T4 Free Directon 08-11-2024 T4 FREE DIRECT 1.14 ng/dL Normal 0.76-1.46 [facility] Comment on above: Order Comment: OKAY TO ADD PER DR PASTOR Performed By: #### L 506.0400 ####[facility] [address] [place], [address] Bedside Glucoseon 08-10-2024 FINGERSTICK GLU 195 mg/dL High 74-106 [facility] Comment on above: Result Comment: OLGA GEMENT OF PATIENT CARE PER NURSING PROTOCOL Performed By: #### L 501.080 ####[facility] [address] [place], [address] FINGERSTICK GLU 217 mg/dL High 74-106 [facility] Comment on above: Result Comment: OLGA GEMENT OF PATIENT CARE PER NURSING PROTOCOL Performed By: #### L 501.080 ####[facility] [address] [place], [address] FINGERSTICK GLU 301 mg/dL High 74-106 [facility] Comment on above: Result Comment: OLGA GEMENT OF PATIENT CARE PER NURSING PROTOCOL Performed By: #### L 501.080 ####[facility] [address] [place], [address] FINGERSTICK GLU 113 mg/dL High -106 [facility] Comment on above: Result Comment: OLGA GEMENT OF PATIENT CARE PER NURSING PROTOCOL Performed By: #### L 501.080 ####[facility] [address] [place], [address] FINGERSTICK GLU 247 mg/dL High [address] [place] [address] Comment on above: Result Comment: OLGA GEMENT OF PATIENT CARE PER NURSING PROTOCOL Performed By: #### L 501.080 ####[facility] [address] [place], [address] Bedside Glucoseon 08-09-2024 FINGERSTICK GLU 130 mg/dL High -[address] [place] [address] Comment on above: Result Comment: OLGA GEMENT OF PATIENT CARE PER NURSING PROTOCOL Performed By: #### L 501.080 ####[facility] [address] [place], [address] FINGERSTICK GLU 145 mg/dL High [address] [place] [address] Comment on above: Result Comment: OLGA GEMENT OF PATIENT CARE PER NURSING PROTOCOL Performed By: #### L 501.080 ####[facility] [address] [place], [address] FINGERSTICK GLU 268 mg/dL High 74-106 [facility] Comment on above: Result Comment: OLGA GEMENT OF PATIENT CARE PER NURSING PROTOCOL Performed By: #### L 501.080 ####[facility] [address] [place], [address] FINGERSTICK GLU 293 mg/dL High 74-106 [facility] Comment on above: Result Comment: OLGA GEMENT OF PATIENT CARE PER NURSING PROTOCOL Performed By: #### L 501.080 ####[facility] [address] [place], [address] FINGERSTICK GLU 255 mg/dL High 74-106 [facility] Comment on above: Result Comment: OLGA GEMENT OF PATIENT CARE PER NURSING PROTOCOL Performed By: #### L 501.080 ####[facility] [address] [place], [address] Basic Metabolic Profile (BMP )on 08-08-2024 BUN/CRE 24.6 RATIO High 10-20 [facility] Comment on above: Performed By: #### L 500.2500, L100.0100 ####[facility] [address] [place], [address] CA,Total 9.5 mg/dL Normal 8.5-10.1 [facility] Comment on above: Performed By: #### L 500.2500, L100.0100 ####[facility] [address] [place], [address] Chloride [Moles/Vol] 106 mmol/L Normal 98-107 [facility] Comment on above: Performed By: #### L 500.2500, L100.0100 ####[facility] [address] [place], [address] CO2 [Moles/Vol] 23.0 mmol/L Normal 21.0-32.0 [facility] Comment on above: Performed By: #### L 500.2500, L100.0100 ####[facility] [address] [place], [address] Creatinine [Mass/Vol] 0.73 mg/dL Normal 0.55-1.02 [facility] Comment on above: Result Comment: The validity of the calculated GFR GFRAA in patients over70 years has not been determined. Clinical correlation isessential. Performed By: #### L 500.2500, L100.0100 ####[facility] [address] [place], [address] ECRCL 49.55 ml/min Normal [facility] Comment on above: Performed By: #### L 500.2500, L100.0100 ####[facility] [address] [place], [address] EST GFR - AA 98 mL/min Normal >60 [facility] Comment on above: Result Comment: Afri can Latvian GFR Calc Performed By: #### L 500.2500, L100.0100 ####[facility] [address] [place], [address] GAP 5 Normal 5-15 [facility] Comment on above: Performed By: #### L 500.2500, L100.0100 ####[facility] [address] [place], [address] GFR/1.73 sq M.predicted among non-blacks MDRD (S/P/Bld) [Vol rate/Area] 81 mL/min/{1.73_m2} Normal >60 [facility] Comment on above: Result Comment: Non- GFR Calc Performed By: #### L 500.2500, L100.0100 ####[facility] [address] [place], [address] Glucose [Mass/Vol] 250 mg/dL High 74-106 [facility] Comment on above: Result Comment: Gluc ose result greater than or equal to 200 mg/dLsuggests DIABETES MELLITUS per A.D.A. criteria. Performed By: #### L 500.2500, L100.0100 ####[facility] [address] [place], [address] Potassium [Moles/Vol] 4.1 mmol/L Normal 3.5-5.1 [facility] Comment on above: Performed By: #### L 500.2500, L100.0100 ####[facility] [address] [place], [address] Sodium [Moles/Vol] 135 mmol/L Low 136-145 [facility] Comment on above: Performed By: #### L 500.2500, L100.0100 ####[facility] [address] [place], [address] Urea nitrogen [Mass/Vol] 18 mg/dL Normal 7-18 [facility] Comment on above: Performed By: #### L 500.2500, L100.0100 ####[facility] [address] [place], [address] Bedside Glucoseon 08-08-2024 FINGERSTICK GLU 181 mg/dL High 74-106 [facility] Comment on above: Result Comment: OLGA GEMENT OF PATIENT CARE PER NURSING PROTOCOL Performed By: #### L 501.080 ####[facility] [address] [place], [address] FINGERSTICK GLU 227 mg/dL High 74-106 [facility] Comment on above: Result Comment: OLGA GEMENT OF PATIENT CARE PER NURSING PROTOCOL Performed By: #### L 501.080 ####[facility] [address] [place], [address] FINGERSTICK GLU 233 mg/dL High 74-106 [facility] Comment on above: Result Comment: OLGA GEMENT OF PATIENT CARE PER NURSING PROTOCOL Performed By: #### L 501.080 ####[facility] [address] [place], [address] FINGERSTICK GLU 229 mg/dL High 74-106 [facility] Comment on above: Result Comment: OLGA GOMEZ OF PATIENT CARE PER NURSING PROTOCOL Performed By: #### L 501.080 ####[facility] [address] [place], [address] Brain/Head W/WO Contraston 1 10-09-2023 Brain/Head W/WO Contrast Normal [facility] CBC W/Diff, Automatedon 12- Absolute Lymph 1.30 X10 3/uL Normal 0.83-4.51 [facility] Comment on above: Performed By: #### L 500.2500, L100.0100 ####[facility] [address] [place], [address] Absolute Neut 4.8 X10 3/uL Normal 2.0-7.7 [facility] Comment on above: Performed By: #### L 500.2500, L100.0100 ####[facility] [address] [place], [address] Basophils/100 WBC (Bld) 0.6 % Normal 0-1 [facility] Comment on above: Performed By: #### L 500.2500, L100.0100 ####[facility] [address] [place], [address] Eosinophils/100 WBC (Bld) 5.1 % High 0-5 [facility] Comment on above: Performed By: #### L 500.2500, L100.0100 ####[facility] [address] [place], [address] Erythrocyte distribution width (RBC) [Ratio] 13.4 % Normal 11.6-14.6 [facility] Comment on above: Performed By: #### L 500.2500, L100.0100 ####[facility] [address] [place], [address] Hematocrit (Bld) [Volume fraction] 38.3 % Normal 37-47 [facility] Comment on above: Performed By: #### L 500.2500, L100.0100 ####[facility] [address] [place], [address] Hemoglobin (Bld) [Mass/Vol] 12.8 g/dL Normal 12.0-15.0 [facility] Comment on above: Performed By: #### L 500.2500, L100.0100 ####[facility] [address] [place], [address] IG% 0.300 Normal 0.0-0.9 [facility] Comment on above: Result Comment: IG% - Immature Granulocytes (promyelocytes, myelocytes andmetamyelocytes) > 1% indicates that a LEFT SHIFT is Present. Performed By: #### L 500.2500, L100.0100 ####[facility] [address] [place], [address] Lymphocytes/100 WBC (Bld) 18.0 % Low 19-41 [facility] Comment on above: Performed By: #### L 500.2500, L100.0100 ####[facility] [address] [place], [address] MCH (RBC) [Entitic mass] 31.6 pg Normal 27.0-32.0 [facility] Comment on above: Performed By: #### L 500.2500, L100.0100 ####[facility] [address] [place], [address] MCHC (RBC) [Mass/Vol] 33.4 g/dL Normal 32-36 [facility] Comment on above: Performed By: #### L 500.2500, L100.0100 ####[facility] [address] [place], [address] MCV (RBC) [Entitic vol] 94.6 fL Normal 81-99 [facility] Comment on above: Performed By: #### L 500.2500, L100.0100 ####[facility] [address] [place], [address] Monocytes/100 WBC (Bld) 10.1 % High 0-10 [facility] Comment on above: Performed By: #### L 500.2500, L100.0100 ####[facility] [address] [place], [address] Neutrophils/100 WBC (Bld) 65.9 % Normal 47-70 [facility] Comment on above: Performed By: #### L 500.2500, L100.0100 ####[facility] [address] [place], [address] Nucleated RBC (Bld) [#/Vol] 0 10*3/uL Normal 0-5 [facility] Comment on above: Performed By: #### L 500.2500, L100.0100 ####[facility] [address] [place], [address] Platelet mean volume (Bld) [Entitic vol] 9.6 fL Normal 6.2-12.0 [facility] Comment on above: Performed By: #### L 500.2500, L100.0100 ####[facility] [address] [place], [address] Platelets (Bld) [#/Vol] 253 10*3/uL Normal 150-450 [facility] Comment on above: Performed By: #### L 500.2500, L100.0100 ####[facility] [address] [place], [address] RBC (Bld) [#/Vol] 4.05 10*6/uL Low 4.2-5.4 [facility] Comment on above: Performed By: #### L 500.2500, L100.0100 ####[facility] [address] [place], [address] RDW SD 46.2 fl High 35.1-43.9 [facility] Comment on above: Performed By: #### L 500.2500, L100.0100 ####[facility] [address] [place], [address] WBC (Bld) [#/Vol] 7.2 10*3/uL Normal 4.4-11.0 [facility] Comment on above: Performed By: #### L 500.2500, L100.0100 ####[facility] [address] [place], [address] Thyroid Stim Hormone (TSH)on 08-08-2024 TSH 7.090 uIU/mL High 0.358-3.74 0 [facility] Comment on above: Performed By: #### L 503.0105, L501.9520 ####[facility] [address] [place], [address] Urine Cultureon 08-08-2024 URC SAMPLE COLLECTED 1443 Yeast, not Shanna albicans [place] Count 50,000-80,000 Normal [facility] Comment on above: Performed By: #### M 100.2200 ####[facility] [address] [place], [address] Vitamin B12on 08-08-2024 Cobalamin (Vitamin B12) [Mass/Vol] 1104 pg/mL High 211-911 [facility] Comment on above: Performed By: #### L 503.0105, L501.9520 ####[facility] [address] [place], [address] Bedside Glucoseon 08-07-2024 FINGERSTICK GLU 163 mg/dL High 74-106 [facility] Comment on above: Result Comment: OLGA GOMEZ OF PATIENT CARE PER NURSING PROTOCOL Performed By: #### L 501.080 ####[facility] [address] [place], [address] FINGERSTICK GLU 207 mg/dL High 74-106 [facility] Comment on above: Result Comment: OLGA GEMENT OF PATIENT CARE PER NURSING PROTOCOL Performed By: #### L 501.080 ####[facility] [address] [place], [address] FINGERSTICK GLU 248 mg/dL High [facility]106 [facility] Comment on above: Result Comment: OLGA GEMENT OF PATIENT CARE PER NURSING PROTOCOL Performed By: #### L 501.080 ####[facility] [address] [facility] [address] FINGERSTICK GLU 234 mg/dL High [address] [place] [address] Comment on above: Result Comment: OLGA GEMENT OF PATIENT CARE PER NURSING PROTOCOL Performed By: #### L 501.080 ####[facility] [address] [place], [address] Bedside Glucoseon 08-06-2024 FINGERSTICK GLU 281 mg/dL High -[address] [place] [address] Comment on above: Result Comment: OLGA GEMENT OF PATIENT CARE PER NURSING PROTOCOL Performed By: #### L 501.080 ####[facility] [address] [place], [address] FINGERSTICK GLU 204 mg/dL High [address] [place] [address] Comment on above: Result Comment: OLGA GEMENT OF PATIENT CARE PER NURSING PROTOCOL Performed By: #### L 501.080 ####[facility] [address] [place], [address] FINGERSTICK GLU 252 mg/dL High [address] [place] [address] Comment on above: Result Comment: OLGA GEMENT OF PATIENT CARE PER NURSING PROTOCOL Performed By: #### L 501.080 ####[facility] [address] [place], [address] FINGERSTICK GLU 277 mg/dL High [address] [place] [address] Comment on above: Result Comment: OLGA GEMENT OF PATIENT CARE PER NURSING PROTOCOL Performed By: #### L 501.080 ####[facility] [address] [place], [address] Bedside Glucoseon 08-05-2024 FINGERSTICK GLU 255 mg/dL High 74-106 [facility] Comment on above: Result Comment: OLGA GEMENT OF PATIENT CARE PER NURSING PROTOCOL Performed By: #### L 501.080 ####[facility] [address] [place], [address] FINGERSTICK GLU 267 mg/dL High 74-106 [facility] Comment on above: Result Comment: OLGA GEMENT OF PATIENT CARE PER NURSING PROTOCOL Performed By: #### L 501.080 ####[facility] [address] [place], [address] FINGERSTICK GLU 439 mg/dL High -106 [facility] Comment on above: Result Comment: OLGA GEMENT OF PATIENT CARE PER NURSING PROTOCOL Performed By: #### L 501.080 ####[facility] [address] [place], [address] FINGERSTICK GLU 332 mg/dL High -106 [facility] Comment on above: Result Comment: OLGA GEMENT OF PATIENT CARE PER NURSING PROTOCOL Performed By: #### L 501.080 ####[facility] [address] [place], [address] Hemoglobin A1con 08-05-2024 HbA1c (Bld) [Mass fraction] 7.2 % High 3.8-5.6 [facility] Comment on above: Result Comment: Norm al < 5.7 % Prediabetic 5.7 - 6.4 % Diabetic >or= 6.5 % Please note range changes. Performed By: #### L 501.9985 ####[facility] [address] [place], [address] Urinalysis, Completeon 08-05 BACTERIA 1+ /hpf Normal None Seen [facility] Comment on above: Order Comment: Micro scopic field is filled. Other elements may beobscured.CATHETER SPECIMEN Performed By: #### L 400.0001 ####[facility] [address] [place], [address] RBC 0-5 SEEN Normal 0-5 [facility] Comment on above: Order Comment: Micro scopic field is filled. Other elements may beobscured.CATHETER SPECIMEN Performed By: #### L 400.0001 ####[facility] [address] [place], [address] YEAST 2+ /hpf Normal None Seen [facility] Comment on above: Order Comment: Micro scopic field is filled. Other elements may beobscured.CATHETER SPECIMEN Performed By: #### L 400.0001 ####[facility] [address] [place], [address] WBC >100 SEEN Normal 0-5 [facility] Comment on above: Order Comment: Micro scopic field is filled. Other elements may beobscured.CATHETER SPECIMEN Performed By: #### L 400.0001 ####[facility] [address] [place], [address] EPI,SQUAMOUS 0-5 SEEN Normal 5-10 [facility] Comment on above: Order Comment: Micro scopic field is filled. Other elements may beobscured.CATHETER SPECIMEN Performed By: #### L 400.0001 ####[facility] [address] [facility] [address] Mucus Ql (Urine sed) 0 SEEN Normal [facility] Comment on above: Order Comment: Micro scopic field is filled. Other elements may beobscured.CATHETER SPECIMEN Performed By: #### L 400.0001 ####[facility] [address] [place], [address] Bedside Glucoseon 08-04-2024 FINGERSTICK GLU 282 mg/dL High 74-106 [facility] Comment on above: Result Comment: OLGA GOMEZ OF PATIENT CARE PER NURSING PROTOCOL Performed By: #### L 501.080 ####[facility] [address] [place], [address] FINGERSTICK GLU 253 mg/dL High 74-106 [facility] Comment on above: Result Comment: OLGA GEMENT OF PATIENT CARE PER NURSING PROTOCOL Performed By: #### L 501.080 ####[facility] [address] [place], [address] FINGERSTICK GLU 336 mg/dL High 74-106 [facility] Comment on above: Result Comment: OLGA GEMENT OF PATIENT CARE PER NURSING PROTOCOL Performed By: #### L 501.080 ####[facility] [address] [place], [address] FINGERSTICK GLU 220 mg/dL High 74-106 [facility] Comment on above: Result Comment: OLGA GEMENT OF PATIENT CARE PER NURSING PROTOCOL Performed By: #### L 501.080 ####[facility] [address] [place], [address] CBC W/Diff, Automatedon 12-2 -2023 Absolute Lymph 1.68 X10 3/uL Normal 0.83-4.51 [facility] Comment on above: Performed By: #### L 100.0100, L500.4050 ####[facility] [address] [place], [address] Absolute Neut 3.7 X10 3/uL Normal 2.0-7.7 [facility] Comment on above: Performed By: #### L 100.0100, L500.4050 ####[facility] [address] [place], [address] Basophils/100 WBC (Bld) 0.6 % Normal 0-1 [facility] Comment on above: Performed By: #### L 100.0100, L500.4050 ####[facility] [address] [place], [address] Eosinophils/100 WBC (Bld) 4.4 % Normal 0-5 [facility] Comment on above: Performed By: #### L 100.0100, L500.4050 ####[facility] [address] [place], [address] Erythrocyte distribution width (RBC) [Ratio] 13.7 % Normal 11.6-14.6 [facility] Comment on above: Performed By: #### L 100.0100, L500.4050 ####[facility] [address] [place], [address] Hematocrit (Bld) [Volume fraction] 36.5 % Low 37-47 [facility] Comment on above: Performed By: #### L 100.0100, L500.4050 ####[facility] [address] [place], [address] Hemoglobin (Bld) [Mass/Vol] 12.0 g/dL Normal 12.0-15.0 [facility] Comment on above: Performed By: #### L 100.0100, L500.4050 ####[facility] [address] [place], [address] IG% 0.200 Normal 0.0-0.9 [facility] Comment on above: Result Comment: IG% - Immature Granulocytes (promyelocytes, myelocytes andmetamyelocytes) > 1% indicates that a LEFT SHIFT is Present. Performed By: #### L 100.0100, L500.4050 ####[facility] [address] [place], [address] Lymphocytes/100 WBC (Bld) 26.2 % Normal 19-41 [facility] Comment on above: Performed By: #### L 100.0100, L500.4050 ####[facility] [address] [place], [address] MCH (RBC) [Entitic mass] 31.4 pg Normal 27.0-32.0 [facility] Comment on above: Performed By: #### L 100.0100, L500.4050 ####[facility] [address] [place], [address] MCHC (RBC) [Mass/Vol] 32.9 g/dL Normal 32-36 [facility] Comment on above: Performed By: #### L 100.0100, L500.4050 ####[facility] [address] [place], [address] MCV (RBC) [Entitic vol] 95.5 fL Normal 81-99 [facility] Comment on above: Performed By: #### L 100.0100, L500.4050 ####[facility] [address] [place], [address] Monocytes/100 WBC (Bld) 10.7 % High 0-10 [facility] Comment on above: Performed By: #### L 100.0100, L500.4050 ####[facility] [address] [place], [address] Neutrophils/100 WBC (Bld) 57.9 % Normal 47-70 [facility] Comment on above: Performed By: #### L 100.0100, L500.4050 ####[facility] [address] [place], [address] Nucleated RBC (Bld) [#/Vol] 0 10*3/uL Normal 0-5 [facility] Comment on above: Performed By: #### L 100.0100, L500.4050 ####[facility] [id number] [place], [address] Platelet mean volume (Bld) [Entitic vol] 9.7 fL Normal 6.2-12.0 [facility] Comment on above: Performed By: #### L 100.0100, L500.4050 ####[facility] [address] [place], [address] Platelets (Bld) [#/Vol] 224 10*3/uL Normal 150-450 [facility] Comment on above: Performed By: #### L 100.0100, L500.4050 ####[facility] [address] [place], [address] RBC (Bld) [#/Vol] 3.82 10*6/uL Low 4.2-5.4 [facility] Comment on above: Performed By: #### L 100.0100, L500.4050 ####[facility] [address] [place], [address] RDW SD 47.9 fl High 35.1-43.9 [facility] Comment on above: Performed By: #### L 100.0100, L500.4050 ####[facility] [address] [place], [address] WBC (Bld) [#/Vol] 6.4 10*3/uL Normal 4.4-11.0 [facility] Comment on above: Performed By: #### L 100.0100, L500.4050 ####[facility] [address] [place], [address] Comprehensive Metabolic [facility] 08-04-2024 Albumin [Mass/Vol] 3.1 g/dL Low 3.2-5.0 [facility] Comment on above: Performed By: #### L 100.0100, L500.4050 ####[facility] [address] [place], [address] Albumin/Globulin [Mass ratio] 0.9 {ratio} Normal 0.9-2.4 [facility] Comment on above: Performed By: #### L 100.0100, L500.4050 ####[facility] [address] [place], [address] ALK P 72 U/L Normal 45-117 [facility] Comment on above: Performed By: #### L 100.0100, L500.4050 ####[facility] [address] [place], [address] ALT [Catalytic activity/Vol] 20 U/L Normal 13-56 [facility] Comment on above: Performed By: #### L 100.0100, L500.4050 ####[facility] [address] [place], [address] AST [Catalytic activity/Vol] 23 U/L Normal 15-37 [facility] Comment on above: Performed By: #### L 100.0100, L500.4050 ####[facility] [address] [place], [address] Bilirubin [Mass/Vol] 0.80 mg/dL Normal 0.20-1.00 [facility] Comment on above: Result Comment: For patients on eltrombopag therapy, use of Dimension [place] TBIL is not recommended. Performed By: #### L 100.0100, L500.4050 ####[facility] [address] [place], [address] BUN/CRE 15.9 RATIO Normal 10-20 [facility] Comment on above: Performed By: #### L 100.0100, L500.4050 ####[facility] [address] [place], [address] CA,Total 8.9 mg/dL Normal 8.5-10.1 [facility] Comment on above: Performed By: #### L 100.0100, L500.4050 ####[facility] [address] [place], [address] Chloride [Moles/Vol] 108 mmol/L High 98-107 [facility] Comment on above: Performed By: #### L 100.0100, L500.4050 ####[facility] [address] [place], [address] CO2 [Moles/Vol] 24.0 mmol/L Normal 21.0-32.0 [facility] Comment on above: Performed By: #### L 100.0100, L500.4050 ####[facility] [address] [place], [address] Creatinine [Mass/Vol] 0.82 mg/dL Normal 0.55-1.02 [facility] Comment on above: Result Comment: The validity of the calculated GFR GFRAA in patients over70 years has not been determined. Clinical correlation isessential. Performed By: #### L 100.0100, L500.4050 ####[facility] [address] [place], [address] ECRCL 49.08 ml/min Normal [facility] Comment on above: Performed By: #### L 100.0100, L500.4050 ####[facility] [address] [place], [address] EST GFR - AA 86 mL/min Normal >60 [facility] Comment on above: Result Comment: Afri can Latvian GFR Calc Performed By: #### L 100.0100, L500.4050 ####[facility] [address] [place], [address] GAP 5 Normal 5-15 [facility] Comment on above: Performed By: #### L 100.0100, L500.4050 ####[facility] [address] [place], [address] GFR/1.73 sq M.predicted among non-blacks MDRD (S/P/Bld) [Vol rate/Area] 71 mL/min/{1.73_m2} Normal >60 [facility] Comment on above: Result Comment: Non- GFR Calc Performed By: #### L 100.0100, L500.4050 ####[facility] [address] [place], [address] Globulin (S) [Mass/Vol] 3.5 g/dL Normal 2.2-4.2 [facility] Comment on above: Performed By: #### L 100.0100, L500.4050 ####[facility] [address] [place], [address] Glucose [Mass/Vol] 233 mg/dL High 74-106 [facility] Comment on above: Result Comment: Gluc ose result greater than or equal to 200 mg/dLsuggests DIABETES MELLITUS per A.D.A. criteria. Performed By: #### L 100.0100, L500.4050 ####[facility] [address] [place], [address] Potassium [Moles/Vol] 5.1 mmol/L Normal 3.5-5.1 [facility] Comment on above: Performed By: #### L 100.0100, L500.4050 ####[facility] [address] [place], [address] Sodium [Moles/Vol] 137 mmol/L Normal 136-145 [facility] Comment on above: Performed By: #### L 100.0100, L500.4050 ####[facility] [address] [place], [address] T PROT 6.6 g/dL Normal 6.4-8.2 [facility] Comment on above: Performed By: #### L 100.0100, L500.4050 ####[facility] [address] [place], [address] Urea nitrogen [Mass/Vol] 13 mg/dL Normal 7-18 [facility] Comment on above: Performed By: #### L 100.0100, L500.4050 ####[facility] [address] [place], [address] ENTERIC PATHOGEN PANEL STOOL on 08-04-2024 EP PANEL Normal [facility] Comment on above: Performed By: #### M 100.637 ####[facility] [address] [place], [address] RESPIRATORY PANEL MOLECULARo n 08-04-2024 RP PANEL Normal [facility] Comment on above: Performed By: #### M 100.638 ####[facility] [address] [place], [address] 12 Lead EKGon 08-03-2024 12 Lead EKG Normal [facility] BNP,B-Type NATRIURETIC PEPTI Genoveva 08-03-2024 Natriuretic peptide B (Bld) [Mass/Vol] 51.8 pg/mL Normal 0-100 [facility] Comment on above: Performed By: #### L 503.6620, L501.5425, L501.2450, L500.4050, L100.0500 ####[facility] [address] [place], [address] Bedside Glucoseon 08-03-2024 FINGERSTICK GLU 242 mg/dL High 74-106 [facility] Comment on above: Result Comment: OLGA GEMENT OF PATIENT CARE PER NURSING PROTOCOL Performed By: #### L 501.080 ####[facility] [address] [place], [address] FINGERSTICK GLU 151 mg/dL High 74-106 [facility] Comment on above: Result Comment: OLGA GEMENT OF PATIENT CARE PER NURSING PROTOCOL Performed By: #### L 501.080 ####[facility] [address] [place], [address] Brain/Head without Contrasto n 08-03-2024 Brain/Head without Contrast Normal [facility] CBC-Complete Blood Cnt No Di ffon 08-03-2024 Erythrocyte distribution width (RBC) [Ratio] 13.6 % Normal 11.6-14.6 [facility] Comment on above: Performed By: #### L 503.6620, L501.5425, L501.2450, L500.4050, L100.0500 ####[facility] [address] [place], [address] Hematocrit (Bld) [Volume fraction] 38.6 % Normal 37-47 [facility] Comment on above: Performed By: #### L 503.6620, L501.5425, L501.2450, L500.4050, L100.0500 ####[facility] [address] [place], [address] Hemoglobin (Bld) [Mass/Vol] 13.1 g/dL Normal 12.0-15.0 [facility] Comment on above: Performed By: #### L 503.6620, L501.5425, L501.2450, L500.4050, L100.0500 ####[facility] [address] [place], [address] MCH (RBC) [Entitic mass] 31.7 pg Normal 27.0-32.0 [facility] Comment on above: Performed By: #### L 503.6620, L501.5425, L501.2450, L500.4050, L100.0500 ####[facility] [address] [place], [address] MCHC (RBC) [Mass/Vol] 33.9 g/dL Normal 32-36 [facility] Comment on above: Performed By: #### L 503.6620, L501.5425, L501.2450, L500.4050, L100.0500 ####[facility] [address] [place], [address] MCV (RBC) [Entitic vol] 93.5 fL Normal 81-99 [facility] Comment on above: Performed By: #### L 503.6620, L501.5425, L501.2450, L500.4050, L100.0500 ####[facility] [address] [place], [address] Platelet mean volume (Bld) [Entitic vol] 9.6 fL Normal 6.2-12.0 [facility] Comment on above: Performed By: #### L 503.6620, L501.5425, L501.2450, L500.4050, L100.0500 ####[facility] [address] [place], [address] Platelets (Bld) [#/Vol] 278 10*3/uL Normal 150-450 [facility] Comment on above: Performed By: #### L 503.6620, L501.5425, L501.2450, L500.4050, L100.0500 ####[facility] [address] [place], [address] RBC (Bld) [#/Vol] 4.13 10*6/uL Low 4.2-5.4 [facility] Comment on above: Performed By: #### L 503.6620, L501.5425, L501.2450, L500.4050, L100.0500 ####[facility] [address] [place], [address] RDW SD 46.5 fl High 35.1-43.9 [facility] Comment on above: Performed By: #### L 503.6620, L501.5425, L501.2450, L500.4050, L100.0500 ####[facility] [address] [place], [address] WBC (Bld) [#/Vol] 9.3 10*3/uL Normal 4.4-11.0 [facility] Comment on above: Performed By: #### L 503.6620, L501.5425, L501.2450, L500.4050, L100.0500 ####[facility] [address] [place], [address] CTA Chest W/WO Contraston CTA Chest W/WO Contrast Normal [facility] Chest 1 View (Portable)on Chest 1 View (Portable) Normal [facility] Comprehensive Metabolic Prof ilon 08-03-2024 Albumin [Mass/Vol] 3.5 g/dL Normal 3.2-5.0 [facility] Comment on above: Order Comment: 1Y Performed By: #### L 503.6620, L501.5425, L501.2450, L500.4050, L100.0500 ####[facility] [address] [place], [address] Albumin/Globulin [Mass ratio] 0.9 {ratio} Normal 0.9-2.4 [facility] Comment on above: Order Comment: 1Y Performed By: #### L 503.6620, L501.5425, L501.2450, L500.4050, L100.0500 ####[facility] [address] [place], [address] ALK P 82 U/L Normal 45-117 [facility] Comment on above: Order Comment: 1Y Performed By: #### L 503.6620, L501.5425, L501.2450, L500.4050, L100.0500 ####[facility] [address] [place], [address] ALT [Catalytic activity/Vol] 22 U/L Normal 13-56 [facility] Comment on above: Order Comment: 1Y Performed By: #### L 503.6620, L501.5425, L501.2450, L500.4050, L100.0500 ####[facility] [address] [place], [address] AST [Catalytic activity/Vol] 21 U/L Normal 15-37 [facility] Comment on above: Order Comment: 1Y Performed By: #### L 503.6620, L501.5425, L501.2450, L500.4050, L100.0500 ####[facility] [address] [place], [address] Bilirubin [Mass/Vol] 0.60 mg/dL Normal 0.20-1.00 [facility] Comment on above: Order Comment: 1Y Result Comment: For patients on eltrombopag therapy, use of Dimension [place] TBIL is not recommended. Performed By: #### L 503.6620, L501.5425, L501.2450, L500.4050, L100.0500 ####[facility] [address] [place], [address] BUN/CRE 12.8 RATIO Normal 10-20 [facility] Comment on above: Order Comment: 1Y Performed By: #### L 503.6620, L501.5425, L501.2450, L500.4050, L100.0500 ####[facility] [address] [place], [address] CA,Total 9.4 mg/dL Normal 8.5-10.1 [facility] Comment on above: Order Comment: 1Y Performed By: #### L 503.6620, L501.5425, L501.2450, L500.4050, L100.0500 ####[facility] [address] [place], [address] Chloride [Moles/Vol] 104 mmol/L Normal 98-107 [facility] Comment on above: Order Comment: 1Y Performed By: #### L 503.6620, L501.5425, L501.2450, L500.4050, L100.0500 ####[facility] [address] [place], [address] CO2 [Moles/Vol] 24.0 mmol/L Normal 21.0-32.0 [facility] Comment on above: Order Comment: 1Y Performed By: #### L 503.6620, L501.5425, L501.2450, L500.4050, L100.0500 ####[facility] [address] [place], [address] Creatinine [Mass/Vol] 1.09 mg/dL High 0.55-1.02 [facility] Comment on above: Order Comment: 1Y Result Comment: The validity of the calculated GFR GFRAA in patients over70 years has not been determined. Clinical correlation isessential. Performed By: #### L 503.6620, L501.5425, L501.2450, L500.4050, L100.0500 ####[facility] [address] [place], [address] ECRCL 37.08 ml/min Normal [facility] Comment on above: Order Comment: 1Y Performed By: #### L 503.6620, L501.5425, L501.2450, L500.4050, L100.0500 ####[facility] [address] [place], [address] EST GFR - AA 62 mL/min Normal >60 [facility] Comment on above: Order Comment: 1Y Result Comment: Afri can Latvian GFR Calc Performed By: #### L 503.6620, L501.5425, L501.2450, L500.4050, L100.0500 ####[facility] [address] [place], [address] GAP 11 Normal 5-15 [facility] Comment on above: Order Comment: 1Y Performed By: #### L 503.6620, L501.5425, L501.2450, L500.4050, L100.0500 ####[facility] [address] [place], [address] GFR/1.73 sq M.predicted among non-blacks MDRD (S/P/Bld) [Vol rate/Area] 51 mL/min/{1.73_m2} Low >60 [facility] Comment on above: Order Comment: 1Y Result Comment: Non- GFR Calc Performed By: #### L 503.6620, L501.5425, L501.2450, L500.4050, L100.0500 ####[facility] [address] [place], [address] Globulin (S) [Mass/Vol] 4.1 g/dL Normal 2.2-4.2 [facility] Comment on above: Order Comment: 1Y Performed By: #### L 503.6620, L501.5425, L501.2450, L500.4050, L100.0500 ####[facility] [address] [place], [address] Glucose [Mass/Vol] 166 mg/dL High 74-106 [facility] Comment on above: Order Comment: 1Y Result Comment: Fast ing Glucose result greater than or equal to 126 mg/dLsuggests DIABETES MELLITUS per A.D.A. criteria. Performed By: #### L 503.6620, L501.5425, L501.2450, L500.4050, L100.0500 ####[facility] [address] [place], [address] Potassium [Moles/Vol] 3.4 mmol/L Low 3.5-5.1 [facility] Comment on above: Order Comment: 1Y Performed By: #### L 503.6620, L501.5425, L501.2450, L500.4050, L100.0500 ####[facility] [address] [place], [address] Sodium [Moles/Vol] 139 mmol/L Normal 136-145 [facility] Comment on above: Order Comment: 1Y Performed By: #### L 503.6620, L501.5425, L501.2450, L500.4050, L100.0500 ####[facility] [address] [place], [address] T PROT 7.6 g/dL Normal 6.4-8.2 [facility] Comment on above: Order Comment: 1Y Performed By: #### L 503.6620, L501.5425, L501.2450, L500.4050, L100.0500 ####[facility] [address] [place], [address] Urea nitrogen [Mass/Vol] 14 mg/dL Normal 7-18 [facility] Comment on above: Order Comment: 1Y Performed By: #### L 503.6620, L501.5425, L501.2450, L500.4050, L100.0500 ####[facility] [address] [place], [address] Emergency Department Summary on 08-03-2024 Emergency Department Summary Normal [facility] H AND P Exam - Hospitaliston 08-03-2024 H&P Exam - Hospitalist Normal [facility] L501.4020on 08-03-2024 TROPONIN-I HS 38 pg/mL Normal 3.0-54.0 [facility] Comment on above: Result Comment: Plea se Note: New Test Units and Gender Specific Reference Ranges. For more information see Policy Stat Procedure [place] High Sensitivity Troponin (TNIH) and attachments. Performed By: #### L 501.4020 ####[facility] [address] [place], [address] L501.5425on 08-03-2024 TROPONIN-I HS 35 pg/mL Normal 3.0-54.0 [facility] Comment on above: Order Comment: 1Y Result Comment: Plea se Note: New Test Units and Gender Specific Reference Ranges. For more information see Policy Stat Procedure [place] High Sensitivity Troponin (TNIH) and attachments. Performed By: #### L 503.6620, L501.5425, L501.2450, L500.4050, L100.0500 ####[facility] [address] [place], [address] Legionella Antigen Urineon 1 10-04-2023 LEGU Normal [facility] Comment on above: Performed By: #### M 300.4500, M300.4600 ####[facility] [address] [place], [address] Lipaseon 08-03-2024 Lipase [Catalytic activity/Vol] 18 U/L Normal 13-75 [facility] Comment on above: Order Comment: 1Y Result Comment: Leticia em note:LIPASE revised reference range effective 22.New Lipase methodology. Expected to produce lower valuesthan the previous assay method.NEW Reference Range: 13 - 75 U/L Performed By: #### L 503.6620, L501.5425, L501.2450, L500.4050, L100.0500 ####[facility] [address] [place], [address] M100.678on 08-03-2024 M100.678 Pending SARS-CoV-2 (COVID 19) Negative INFLUENZA A Negative INFLUENZA B Negative RSV PCR Negative Normal [facility] Comment on above: Performed By: #### M 100.678, L400.0001 ####[facility] [address] [place], [address] Magnesiumon 08-03-2024 Magnesium [Mass/Vol] 1.7 mg/dL Normal 1.6-2.6 [facility] Comment on above: Order Comment: Comme nts: may add to ED labs Performed By: #### L 501.5200, L509.7000 ####[facility] [address] [place], [address] Office Visit Reporton 2023 Office Visit Report Normal [facility] Procalcitoninon 08-03-2024 Procalcitonin 0.06 ng/mL Normal 0.00-0.09 [facility] Comment on above: Result Comment: A pr ocalcitonin (PCT) level above 2.0 ng/mL on the first day of ICU admission is associated with a high risk for progression to severe sepsis and/or septic shock. A PCT level below 0.5 ng/mL on the first day of ICU admission is associated with a low risk for progression to severe and/or septic shock. Note: Concentrations <0.5 ng/mL do not exclude an infection on account of localized infections (without systemic signs) which can be associated with such low concentrations, or a systemic infection in its initial stages (<6 hours). Furthermore, increased procalcitonin can occur without infection. PCT concentrations between 0.5 and 2.0 ng/mL should be interpreted taking into account the patient's history. It is recommended to retest PCT within 6-24 hours if any concentrations <2 ng/mL are obtained. Performed By: #### L 501.5200, L509.7000 ####[facility] [address] [place], [address] Strep pneumoniae Antig(UR,CS F)on 08-03-2024 STPAG Normal [facility] Comment on above: Performed By: #### M 300.4500, M300.4600 ####[facility] [address] [place], [address] Urinalysis, Completeon 08-03 BACTERIA 2+ /hpf Normal None Seen [facility] Comment on above: Order Comment: CLEAN CATCH Performed By: #### M 100.678, L400.0001 ####[facility] [address] [place], [address] EPI,SQUAMOUS 5-10 SEEN Normal 5-10 [facility] Comment on above: Order Comment: CLEAN CATCH Performed By: #### M 100.678, L400.0001 ####[facility] [address] [place], [address] Mucus Ql (Urine sed) 2+ /hpf Normal [facility] Comment on above: Order Comment: CLEAN CATCH Performed By: #### M 100.678, L400.0001 ####[facility] [address] [place], [address] RBC 0-5 SEEN Normal 0-5 [facility] Comment on above: Order Comment: CLEAN CATCH Performed By: #### M 100.678, L400.0001 ####[facility] [address] [place], [address] WBC 10-25 SEEN Normal 0-5 [facility] Comment on above: Order Comment: CLEAN CATCH Performed By: #### M 100.678, L400.0001 ####[facility] [address] [place], [address] Culture, Blood (WB)on 2023 CUB Blood cultures x2 fr om two different sites No growth in 5 days. Normal [facility] Comment on above: Performed By: #### M 200.1000 ####[facility] [address] [place], [address] CNOVon 07-15-2024 CNOV Office Visit (INTMWS ) ANA IVORY ([id number]) 1940 F Date Time Provider Department 07/15/24 11:20 AM ALICIA BLOUNT INTMWS During your visit today, we recorded the following information about you: Temperature Pulse Respiration Blood pressure 97.8 degrees 82/minute 16/minute 132/68 Weight 71.6 kg Alicia Blount MD 08/11/2024 1:27 AM Signed Transitional Care Management TCM Eligibility Documentation Program: Transitional Care Management Status: Enrolled Effective Dates: 07/14/2024 - present Responsible Staff: Ellen Gonzalez RN Discharge date: 07/12/2024 (Program start) Date of initial contact: 07/14/2024 Initial contact Target status: Successful; Contact made within 2 business days post-discharge Provider Documentation Ana Ivory is a 84 year old female here today for a follow up from recent hospitalization. I have reviewed the patient's hospital course including discharge summary, discharge medications , and follow up needs with the patient and any family members present at today's visit. HPI SUBJECTIVE: Ana Ivory is a 84 year old lady here for [facility] follow up appointment. Ana Ivory is an 84-year-old female with a history of syncope, diabetes mellitus, and bronchiectasis, presenting for follow-up after a recent hospitalization for syncope and suspected infection. Ana reports feeling crappy following a recent hospitalization. She was discharged on the after being admitted for a syncope episode that occurred while she was sitting in a recliner watching TV. She does not recall feeling lightheaded or dizzy before the episode and denies any trauma or head injury during the incident. Her attempted to wake her using ice and gentle slaps but was unsuccessful, prompting him to call emergency services. Upon arrival, she did not recognize her granddaughter's , who is a member of the fire department. She began to regain consciousness during transport to the hospital but remained confused and disoriented, unable to recognize familiar landmarks. She continues to experience intermittent confusion and memory lapses, stating, I'm still a little confused on what happened and who was there. During her hospital stay, she was treated with IV Zosyn and was discharged on Augmentin 875 mg BID for 10 days, which she started on Sunday. She reports nausea, which she attributes to the Augmentin, and requests medication for it. She also reports a persistent headache since the incident. Ana has a history of a left ta injury sustained on the 29 of May, which became infected and was treated with antibiotics and a tetanus shot. The wound was still red and swollen at the time of her recent hospitalization. She also has a right Achilles tendon injury that is being treated with a brace, which she is to wear for another week. She reports that the brace is more comfortable than the boot she was previously using. Ana has a history of diabetes mellitus and is on a sliding scale insulin regimen. She reports that her blood sugar levels were higher than usual during her hospital stay but have improved since returning home. She is considering an insulin pump and has upcoming lab work scheduled with her security flex officer, Dr. Munguia. She also reports frequent urination but denies symptoms of diabetic ketoacidosis. Ana uses a Ventolin inhaler for bronchiectasis and requests a refill. She reports that she is supposed to use it three times a day, six puffs each time, but is currently out of the medication. 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 Chanel, in August. PAST MEDICAL HISTORY Diagnosis Date Acute gastritis without mention of hemorrhage 10/31/2007 Adverse reaction to non-steroidal anti-inflammatory drug (NSAID) 03/28/2010 KATHERIN positive 03/04/2014 Gonzales's esophagus C. difficile diarrhea 10/18/2011 Cataract 04/17/2013 [facility] [place], Dr. Dada Rodríguez. Mild cataract in L eye- no need for cataract surgery at this time. Continue to follow up the cataract. 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 At this time, we anticipate that [...] care for assistance with chest tube to [facility]. Return to [facility] on Sunday11/18/[address] removal . Enlargement of lymph nodes 12/20/2006 Esophagitis, (more content not included)... Normal [facility] Urine Cultureon 07-13-2024 URC Yeast, not Shanna a lbicans [place] Count 80,000-100,000 Normal [facility] Comment on above: Performed By: #### M 100.2200 ####[facility] [address] [place], [address] Basic Metabolic Profile (BMP )on 07-12-2024 BUN/CRE 18.8 RATIO Normal 10-20 [facility] Comment on above: Performed By: #### L 100.0100, L500.2500 ####[facility] [address] [place], [address] CA,Total 8.9 mg/dL Normal 8.5-10.1 [facility] Comment on above: Performed By: #### L 100.0100, L500.2500 ####[facility] [address] [place], [address] Chloride [Moles/Vol] 104 mmol/L Normal 98-107 [facility] Comment on above: Performed By: #### L 100.0100, L500.2500 ####[facility] [address] [place], [address] CO2 [Moles/Vol] 24.0 mmol/L Normal 21.0-32.0 [facility] Comment on above: Performed By: #### L 100.0100, L500.2500 ####[facility] [address] [place], [address] Creatinine [Mass/Vol] 0.80 mg/dL Normal 0.55-1.02 [facility] Comment on above: Result Comment: The validity of the calculated GFR GFRAA in patients over70 years has not been determined. Clinical correlation isessential. Performed By: #### L 100.0100, L500.2500 ####[facility] [address] [place], [address] ECRCL 50.89 ml/min Normal [facility] Comment on above: Performed By: #### L 100.0100, L500.2500 ####[facility] [address] [place], [address] EST GFR - AA 88 mL/min Normal >60 [facility] Comment on above: Result Comment: Afri can Latvian GFR Calc Performed By: #### L 100.0100, L500.2500 ####[facility] [address] [place], [address] GAP 8 Normal 5-15 [facility] Comment on above: Performed By: #### L 100.0100, L500.2500 ####[facility] [address] [place], [address] GFR/1.73 sq M.predicted among non-blacks MDRD (S/P/Bld) [Vol rate/Area] 73 mL/min/{1.73_m2} Normal >60 [facility] Comment on above: Result Comment: Non- GFR Calc Performed By: #### L 100.0100, L500.2500 ####[facility] [address] [place], [address] Glucose [Mass/Vol] 290 mg/dL High 74-106 [facility] Comment on above: Result Comment: Gluc ose result greater than or equal to 200 mg/dLsuggests DIABETES MELLITUS per A.D.A. criteria. Performed By: #### L 100.0100, L500.2500 ####[facility] [address] [place], [address] Potassium [Moles/Vol] 3.9 mmol/L Normal 3.5-5.1 [facility] Comment on above: Performed By: #### L 100.0100, L500.2500 ####[facility] [address] [place], [address] Sodium [Moles/Vol] 136 mmol/L Normal 136-145 [facility] Comment on above: Performed By: #### L 100.0100, L500.2500 ####[facility] [address] [place], [address] Urea nitrogen [Mass/Vol] 15 mg/dL Normal 7-18 [facility] Comment on above: Performed By: #### L 100.0100, L500.2500 ####[facility] [address] [place], [address] Bedside Glucoseon 07-12-2024 FINGERSTICK GLU 293 mg/dL High 74-106 [facility] Comment on above: Result Comment: OLGA GOMEZ OF PATIENT CARE PER NURSING PROTOCOL Performed By: #### L 501.080 ####[facility] [address] [place], [address] CBC W/Diff, Automatedon 11- 0-2023 Absolute Lymph 1.64 X10 3/uL Normal 0.83-4.51 [facility] Comment on above: Performed By: #### L 100.0100, L500.2500 ####[facility] [address] [place], [address] Absolute Neut 6.1 X10 3/uL Normal 2.0-7.7 [facility] Comment on above: Performed By: #### L 100.0100, L500.2500 ####[facility] [address] [place], [address] Basophils/100 WBC (Bld) 0.6 % Normal 0-1 [facility] Comment on above: Performed By: #### L 100.0100, L500.2500 ####[facility] [address] [place], [address] Eosinophils/100 WBC (Bld) 2.9 % Normal 0-5 [facility] Comment on above: Performed By: #### L 100.0100, L500.2500 ####[facility] [address] [place], [address] Erythrocyte distribution width (RBC) [Ratio] 13.2 % Normal 11.6-14.6 [facility] Comment on above: Performed By: #### L 100.0100, L500.2500 ####[facility] [address] [place], [address] Hematocrit (Bld) [Volume fraction] 35.3 % Low 37-47 [facility] Comment on above: Performed By: #### L 100.0100, L500.2500 ####[facility] [address] [place], [address] Hemoglobin (Bld) [Mass/Vol] 12.2 g/dL Normal 12.0-15.0 [facility] Comment on above: Performed By: #### L 100.0100, L500.2500 ####[facility] [address] [place], [address] IG% 0.700 Normal 0.0-0.9 [facility] Comment on above: Result Comment: IG% - Immature Granulocytes (promyelocytes, myelocytes andmetamyelocytes) > 1% indicates that a LEFT SHIFT is Present. Performed By: #### L 100.0100, L500.2500 ####[facility] [address] [place], [address] Lymphocytes/100 WBC (Bld) 18.2 % Low 19-41 [facility] Comment on above: Performed By: #### L 100.0100, L500.2500 ####[facility] [address] [place], [address] MCH (RBC) [Entitic mass] 32.4 pg High 27.0-32.0 [facility] Comment on above: Performed By: #### L 100.0100, L500.2500 ####[facility] [address] [place], [address] MCHC (RBC) [Mass/Vol] 34.6 g/dL Normal 32-36 [facility] Comment on above: Performed By: #### L 100.0100, L500.2500 ####[facility] [address] [place], [address] MCV (RBC) [Entitic vol] 93.6 fL Normal 81-99 [facility] Comment on above: Performed By: #### L 100.0100, L500.2500 ####[facility] [address] [place], [address] Monocytes/100 WBC (Bld) 9.7 % Normal 0-10 [facility] Comment on above: Performed By: #### L 100.0100, L500.2500 ####[facility] [address] [place], [address] Neutrophils/100 WBC (Bld) 67.9 % Normal 47-70 [facility] Comment on above: Performed By: #### L 100.0100, L500.2500 ####[facility] [address] [place], [address] Nucleated RBC (Bld) [#/Vol] 0 10*3/uL Normal 0-5 [facility] Comment on above: Performed By: #### L 100.0100, L500.2500 ####[facility] [address] [place], [address] Platelet mean volume (Bld) [Entitic vol] 9.7 fL Normal 6.2-12.0 [facility] Comment on above: Performed By: #### L 100.0100, L500.2500 ####[facility] [address] [place], [address] Platelets (Bld) [#/Vol] 232 10*3/uL Normal 150-450 [facility] Comment on above: Performed By: #### L 100.0100, L500.2500 ####[facility] [address] [place], [address] RBC (Bld) [#/Vol] 3.77 10*6/uL Low 4.2-5.4 [facility] Comment on above: Performed By: #### L 100.0100, L500.2500 ####[facility] [address] [place], [address] RDW SD 45.0 fl High 35.1-43.9 [facility] Comment on above: Performed By: #### L 100.0100, L500.2500 ####[facility] [address] [place], [address] WBC (Bld) [#/Vol] 9.0 10*3/uL Normal 4.4-11.0 [facility] Comment on above: Performed By: #### L 100.0100, L500.2500 ####[facility] [address] [place], [address] Discharge Instructionon 06-15 Discharge Instruction Normal [facility] Basic Metabolic Profile (BMP )on 07-11-2024 BUN/CRE 17.2 RATIO Normal 10-20 [facility] Comment on above: Performed By: #### L 100.0500, L503.6005, L500.2500 ####[facility] [address] [place], [address] CA,Total 9.0 mg/dL Normal 8.5-10.1 [facility] Comment on above: Performed By: #### L 100.0500, L503.6005, L500.2500 ####[facility] [address] [place], [address] Chloride [Moles/Vol] 105 mmol/L Normal 98-107 [facility] Comment on above: Performed By: #### L 100.0500, L503.6005, L500.2500 ####[facility] [address] [place], [address] CO2 [Moles/Vol] 23.0 mmol/L Normal 21.0-32.0 [facility] Comment on above: Performed By: #### L 100.0500, L503.6005, L500.2500 ####[facility] [address] [place], [address] Creatinine [Mass/Vol] 0.99 mg/dL Normal 0.55-1.02 [facility] Comment on above: Result Comment: The validity of the calculated GFR GFRAA in patients over70 years has not been determined. Clinical correlation isessential. Performed By: #### L 100.0500, L503.6005, L500.2500 ####[facility] [address] [place], [address] ECRCL 41.12 ml/min Normal [facility] Comment on above: Performed By: #### L 100.0500, L503.6005, L500.2500 ####[facility] [address] [place], [address] EST GFR - AA 69 mL/min Normal >60 [facility] Comment on above: Result Comment: Afri can Latvian GFR Calc Performed By: #### L 100.0500, L503.6005, L500.2500 ####[facility] [address] [place], [address] GAP 8 Normal 5-15 [facility] Comment on above: Performed By: #### L 100.0500, L503.6005, L500.2500 ####[facility] [address] [place], [address] GFR/1.73 sq M.predicted among non-blacks MDRD (S/P/Bld) [Vol rate/Area] 57 mL/min/{1.73_m2} Low >60 [facility] Comment on above: Result Comment: Non- GFR Calc Performed By: #### L 100.0500, L503.6005, L500.2500 ####[facility] [address] [place], [address] Glucose [Mass/Vol] 228 mg/dL High 74-106 [facility] Comment on above: Result Comment: Gluc ose result greater than or equal to 200 mg/dLsuggests DIABETES MELLITUS per A.D.A. criteria. Performed By: #### L 100.0500, L503.6005, L500.2500 ####[facility] [address] [place], [address] Potassium [Moles/Vol] 4.2 mmol/L Normal 3.5-5.1 [facility] Comment on above: Performed By: #### L 100.0500, L503.6005, L500.2500 ####[facility] [address] [place], [address] Sodium [Moles/Vol] 136 mmol/L Normal 136-145 [facility] Comment on above: Performed By: #### L 100.0500, L503.6005, L500.2500 ####[facility] [address] [place], [address] Urea nitrogen [Mass/Vol] 17 mg/dL Normal 7-18 [facility] Comment on above: Performed By: #### L 100.0500, L503.6005, L500.2500 ####[facility] [address] [place], [address] Bedside Glucoseon 07-11-2024 FINGERSTICK GLU 262 mg/dL High 74-106 [facility] Comment on above: Result Comment: OLGA GEMENT OF PATIENT CARE PER NURSING PROTOCOL Performed By: #### L 501.080 ####[facility] [address] [place], [address] FINGERSTICK GLU 220 mg/dL High 74-106 [facility] Comment on above: Result Comment: OLGA GEMENT OF PATIENT CARE PER NURSING PROTOCOL Performed By: #### L 501.080 ####[facility] [address] [place], [address] FINGERSTICK GLU 351 mg/dL High 74-106 [facility] Comment on above: Result Comment: OLGA GEMENT OF PATIENT CARE PER NURSING PROTOCOL Performed By: #### L 501.080 ####[facility] [address] [place], [address] FINGERSTICK GLU 233 mg/dL High 74-106 [facility] Comment on above: Result Comment: OLGA GOMEZ OF PATIENT CARE PER NURSING PROTOCOL Performed By: #### L 501.080 ####[facility] [address] [place], [address] CBC-Complete Blood Cnt No Di ffon 07-11-2024 Erythrocyte distribution width (RBC) [Ratio] 13.3 % Normal 11.6-14.6 [facility] Comment on above: Performed By: #### L 100.0500, L503.6005, L500.2500 ####[facility] [address] [place], [address] Hematocrit (Bld) [Volume fraction] 34.5 % Low 37-47 [facility] Comment on above: Performed By: #### L 100.0500, L503.6005, L500.2500 ####[facility] [address] [place], [address] Hemoglobin (Bld) [Mass/Vol] 11.7 g/dL Low 12.0-15.0 [facility] Comment on above: Performed By: #### L 100.0500, L503.6005, L500.2500 ####[facility] [address] [place], [address] MCH (RBC) [Entitic mass] 32.0 pg Normal 27.0-32.0 [facility] Comment on above: Performed By: #### L 100.0500, L503.6005, L500.2500 ####[facility] [address] [place], [address] MCHC (RBC) [Mass/Vol] 33.9 g/dL Normal 32-36 [facility] Comment on above: Performed By: #### L 100.0500, L503.6005, L500.2500 ####[facility] [address] [place], [address] MCV (RBC) [Entitic vol] 94.3 fL Normal 81-99 [facility] Comment on above: Performed By: #### L 100.0500, L503.6005, L500.2500 ####[facility] [address] [place], [address] Platelet mean volume (Bld) [Entitic vol] 9.8 fL Normal 6.2-12.0 [facility] Comment on above: Performed By: #### L 100.0500, L503.6005, L500.2500 ####[facility] [address] [place], [address] Platelets (Bld) [#/Vol] 260 10*3/uL Normal 150-450 [facility] Comment on above: Performed By: #### L 100.0500, L503.6005, L500.2500 ####[facility] [address] [place], [address] RBC (Bld) [#/Vol] 3.66 10*6/uL Low 4.2-5.4 [facility] Comment on above: Performed By: #### L 100.0500, L503.6005, L500.2500 ####[facility] [address] [place], [address] RDW SD 46.2 fl High 35.1-43.9 [facility] Comment on above: Performed By: #### L 100.0500, L503.6005, L500.2500 ####[facility] [address] [place], [address] WBC (Bld) [#/Vol] 11.9 10*3/uL High 4.4-11.0 [facility] Comment on above: Performed By: #### L 100.0500, L503.6005, L500.2500 ####[facility] [address] [place], [address] Echo Complete W/ Contraston 07-11-2024 Echo Complete W/ Contrast Normal [facility] Lactic Acidon 07-11-2024 Lactate [Moles/Vol] 1.6 mmol/L Normal 0.4-1.9 [facility] Comment on above: Order Comment: Y Performed By: #### L 100.0500, L503.6005, L500.2500 ####[facility] [address] [place], [address] Lactate [Moles/Vol] 2.5 mmol/L Invalid Interpretation Code 0.4-1.9 [facility] Comment on above: Result Comment: Crit ical Result(s) Called at: 01:32:32 07/11/2024 by: NoahBurns. marianela Welch RN PCU. Results read back by same. Performed By: #### L 503.6005 ####[facility] [address] [place], [place], [address] Abdomen/Pelvis without Conto n 07-10-2024 Abdomen/Pelvis without Cont Normal [facility] BNP,B-Type NATRIURETIC PEPTI Genoveva 07-10-2024 Natriuretic peptide B (Bld) [Mass/Vol] 36.3 pg/mL Normal 0-100 [facility] Comment on above: Performed By: #### L 500.4050, L503.6005, L100.0100, L501.2450, L501.5425, L503.6620 ####[facility] [address] [place], [address] Bedside Glucoseon 07-10-2024 FINGERSTICK GLU 115 mg/dL High 74-106 [facility] Comment on above: Result Comment: OLGA GOMEZ OF PATIENT CARE PER NURSING PROTOCOL Performed By: #### L 501.080 ####[facility] [address] [place], [address] Brain/Head without Contrasto n 07-10-2024 Brain/Head without Contrast Normal [facility] CBC W/Diff, Automatedon 11- Absolute Lymph 1.64 X10 3/uL Normal 0.83-4.51 [facility] Comment on above: Performed By: #### L 500.4050, L503.6005, L100.0100, L501.2450, L501.5425, L503.6620 ####[facility] [address] [place], [address] Absolute Neut 12.4 X10 3/uL High 2.0-7.7 [facility] Comment on above: Performed By: #### L 500.4050, L503.6005, L100.0100, L501.2450, L501.5425, L503.6620 ####[facility] [address] [place], [address] Basophils/100 WBC (Bld) 0.5 % Normal 0-1 [facility] Comment on above: Performed By: #### L 500.4050, L503.6005, L100.0100, L501.2450, L501.5425, L503.6620 ####[facility] [address] [place], [address] Eosinophils/100 WBC (Bld) 1.1 % Normal 0-5 [facility] Comment on above: Performed By: #### L 500.4050, L503.6005, L100.0100, L501.2450, L501.5425, L503.6620 ####[facility] [address] [place], [address] Erythrocyte distribution width (RBC) [Ratio] 13.3 % Normal 11.6-14.6 [facility] Comment on above: Performed By: #### L 500.4050, L503.6005, L100.0100, L501.2450, L501.5425, L503.6620 ####[facility] [address] [place], [address] Hematocrit (Bld) [Volume fraction] 41.0 % Normal 37-47 [facility] Comment on above: Performed By: #### L 500.4050, L503.6005, L100.0100, L501.2450, L501.5425, L503.6620 ####[facility] [address] [place], [address] Hemoglobin (Bld) [Mass/Vol] 14.1 g/dL Normal 12.0-15.0 [facility] Comment on above: Performed By: #### L 500.4050, L503.6005, L100.0100, L501.2450, L501.5425, L503.6620 ####[facility] [address] [place], [address] IG% 0.400 Normal 0.0-0.9 [facility] Comment on above: Result Comment: IG% - Immature Granulocytes (promyelocytes, myelocytes andmetamyelocytes) > 1% indicates that a LEFT SHIFT is Present. Performed By: #### L 500.4050, L503.6005, L100.0100, L501.2450, L501.5425, L503.6620 ####[facility] [address] [place], [address] Lymphocytes/100 WBC (Bld) 10.5 % Low 19-41 [facility] Comment on above: Performed By: #### L 500.4050, L503.6005, L100.0100, L501.2450, L501.5425, L503.6620 ####[facility] [address] [place], [address] MCH (RBC) [Entitic mass] 32.0 pg Normal 27.0-32.0 [facility] Comment on above: Performed By: #### L 500.4050, L503.6005, L100.0100, L501.2450, L501.5425, L503.6620 ####[facility] [address] [place], [address] MCHC (RBC) [Mass/Vol] 34.4 g/dL Normal 32-36 [facility] Comment on above: Performed By: #### L 500.4050, L503.6005, L100.0100, L501.2450, L501.5425, L503.6620 ####[facility] [address] [place], [address] MCV (RBC) [Entitic vol] 93.2 fL Normal 81-99 [facility] Comment on above: Performed By: #### L 500.4050, L503.6005, L100.0100, L501.2450, L501.5425, L503.6620 ####[facility] [address] [place], [address] Monocytes/100 WBC (Bld) 8.1 % Normal 0-10 [facility] Comment on above: Performed By: #### L 500.4050, L503.6005, L100.0100, L501.2450, L501.5425, L503.6620 ####[facility] [address] [place], [address] Neutrophils/100 WBC (Bld) 79.4 % High 47-70 [facility] Comment on above: Performed By: #### L 500.4050, L503.6005, L100.0100, L501.2450, L501.5425, L503.6620 ####[facility] [address] [place], [address] Nucleated RBC (Bld) [#/Vol] 0 10*3/uL Normal 0-5 [facility] Comment on above: Performed By: #### L 500.4050, L503.6005, L100.0100, L501.2450, L501.5425, L503.6620 ####[facility] [address] [place], [address] Platelet mean volume (Bld) [Entitic vol] 9.6 fL Normal 6.2-12.0 [facility] Comment on above: Performed By: #### L 500.4050, L503.6005, L100.0100, L501.2450, L501.5425, L503.6620 ####[facility] [address] [place], [address] Platelets (Bld) [#/Vol] 311 10*3/uL Normal 150-450 [facility] Comment on above: Performed By: #### L 500.4050, L503.6005, L100.0100, L501.2450, L501.5425, L503.6620 ####[facility] [address] [place], [address] RBC (Bld) [#/Vol] 4.40 10*6/uL Normal 4.2-5.4 [facility] Comment on above: Performed By: #### L 500.4050, L503.6005, L100.0100, L501.2450, L501.5425, L503.6620 ####[facility] [address] [place], [address] RDW SD 45.1 fl High 35.1-43.9 [facility] Comment on above: Performed By: #### L 500.4050, L503.6005, L100.0100, L501.2450, L501.5425, L503.6620 ####[facility] [address] [place], [address] WBC (Bld) [#/Vol] 15.6 10*3/uL High 4.4-11.0 [facility] Comment on above: Performed By: #### L 500.4050, L503.6005, L100.0100, L501.2450, L501.5425, L503.6620 ####[facility] [address] [place], [address] Chest 1 View (Portable)on Chest 1 View (Portable) Normal [facility] Comprehensive Metabolic Prof ilon 07-10-2024 Albumin [Mass/Vol] 3.8 g/dL Normal 3.2-5.0 [facility] Comment on above: Order Comment: 1Y Performed By: #### L 500.4050, L503.6005, L100.0100, L501.2450, L501.5425, L503.6620 ####[facility] [address] [place], [address] Albumin/Globulin [Mass ratio] 1.0 {ratio} Normal 0.9-2.4 [facility] Comment on above: Order Comment: 1Y Performed By: #### L 500.4050, L503.6005, L100.0100, L501.2450, L501.5425, L503.6620 ####[facility] [address] [place], [address] ALK P 101 U/L Normal 45-117 [facility] Comment on above: Order Comment: 1Y Performed By: #### L 500.4050, L503.6005, L100.0100, L501.2450, L501.5425, L503.6620 ####[facility] [address] [place], [address] ALT [Catalytic activity/Vol] 21 U/L Normal 13-56 [facility] Comment on above: Order Comment: 1Y Performed By: #### L 500.4050, L503.6005, L100.0100, L501.2450, L501.5425, L503.6620 ####[facility] [address] [place], [address] AST [Catalytic activity/Vol] 16 U/L Normal 15-37 [facility] Comment on above: Order Comment: 1Y Performed By: #### L 500.4050, L503.6005, L100.0100, L501.2450, L501.5425, L503.6620 ####[facility] [address] [place], [address] Bilirubin [Mass/Vol] 0.30 mg/dL Normal 0.20-1.00 [facility] Comment on above: Order Comment: 1Y Result Comment: For patients on eltrombopag therapy, use of Dimension [place] TBIL is not recommended. Performed By: #### L 500.4050, L503.6005, L100.0100, L501.2450, L501.5425, L503.6620 ####[facility] [address] [place], [address] BUN/CRE 17.6 RATIO Normal 10-20 [facility] Comment on above: Order Comment: 1Y Performed By: #### L 500.4050, L503.6005, L100.0100, L501.2450, L501.5425, L503.6620 ####[facility] [address] [place], [address] CA,Total 10.0 mg/dL Normal 8.5-10.1 [facility] Comment on above: Order Comment: 1Y Performed By: #### L 500.4050, L503.6005, L100.0100, L501.2450, L501.5425, L503.6620 ####[facility] [address] [place], [address] Chloride [Moles/Vol] 104 mmol/L Normal 98-107 [facility] Comment on above: Order Comment: 1Y Performed By: #### L 500.4050, L503.6005, L100.0100, L501.2450, L501.5425, L503.6620 ####[facility] [address] [place], [address] CO2 [Moles/Vol] 29.0 mmol/L Normal 21.0-32.0 [facility] Comment on above: Order Comment: 1Y Performed By: #### L 500.4050, L503.6005, L100.0100, L501.2450, L501.5425, L503.6620 ####[facility] [address] [place], [address] Creatinine [Mass/Vol] 0.96 mg/dL Normal 0.55-1.02 [facility] Comment on above: Order Comment: 1Y Result Comment: The validity of the calculated GFR GFRAA in patients over70 years has not been determined. Clinical correlation isessential. Performed By: #### L 500.4050, L503.6005, L100.0100, L501.2450, L501.5425, L503.6620 ####[facility] [address] [place], [address] ECRCL 42.72 ml/min Normal [facility] Comment on above: Order Comment: 1Y Performed By: #### L 500.4050, L503.6005, L100.0100, L501.2450, L501.5425, L503.6620 ####[facility] [address] [place], [address] EST GFR - AA 71 mL/min Normal >60 [facility] Comment on above: Order Comment: 1Y Result Comment: Afri can Latvian GFR Calc Performed By: #### L 500.4050, L503.6005, L100.0100, L501.2450, L501.5425, L503.6620 ####[facility] [address] [place], [address] GAP 7 Normal 5-15 [facility] Comment on above: Order Comment: 1Y Performed By: #### L 500.4050, L503.6005, L100.0100, L501.2450, L501.5425, L503.6620 ####[facility] [address] [place], [address] GFR/1.73 sq M.predicted among non-blacks MDRD (S/P/Bld) [Vol rate/Area] 59 mL/min/{1.73_m2} Low >60 [facility] Comment on above: Order Comment: 1Y Result Comment: Non- GFR Calc Performed By: #### L 500.4050, L503.6005, L100.0100, L501.2450, L501.5425, L503.6620 ####[facility] [address] [place], [address] Globulin (S) [Mass/Vol] 3.9 g/dL Normal 2.2-4.2 [facility] Comment on above: Order Comment: 1Y Performed By: #### L 500.4050, L503.6005, L100.0100, L501.2450, L501.5425, L503.6620 ####[facility] [address] [place], [address] Glucose [Mass/Vol] 136 mg/dL High 74-106 [facility] Comment on above: Order Comment: 1Y Result Comment: Fast ing Glucose result greater than or equal to 126 mg/dLsuggests DIABETES MELLITUS per A.D.A. criteria. Performed By: #### L 500.4050, L503.6005, L100.0100, L501.2450, L501.5425, L503.6620 ####[facility] [address] [place], [address] Potassium [Moles/Vol] 4.1 mmol/L Normal 3.5-5.1 [facility] Comment on above: Order Comment: 1Y Performed By: #### L 500.4050, L503.6005, L100.0100, L501.2450, L501.5425, L503.6620 ####[facility] [address] [place], [address] Sodium [Moles/Vol] 140 mmol/L Normal 136-145 [facility] Comment on above: Order Comment: 1Y Performed By: #### L 500.4050, L503.6005, L100.0100, L501.2450, L501.5425, L503.6620 ####[facility] [address] [place], [address] T PROT 7.7 g/dL Normal 6.4-8.2 [facility] Comment on above: Order Comment: 1Y Performed By: #### L 500.4050, L503.6005, L100.0100, L501.2450, L501.5425, L503.6620 ####[facility] [address] [place], [address] Urea nitrogen [Mass/Vol] 17 mg/dL Normal 7-18 [facility] Comment on above: Order Comment: 1Y Performed By: #### L 500.4050, L503.6005, L100.0100, L501.2450, L501.5425, L503.6620 ####[facility] [address] [place], [address] Emergency Department Summary on 07-10-2024 Emergency Department Summary Normal [facility] H AND P Exam - Hospitaliston 07-10-2024 H&P Exam - Hospitalist Normal [facility] L501.4020on 07-10-2024 TROPONIN-I HS 6 pg/mL Normal 3.0-54.0 [facility] Comment on above: Result Comment: Leticia em Note: New Test Units and Gender Specific Reference Ranges. For more information see Policy Stat Procedure [place] High Sensitivity Troponin (TNIH) and attachments. Performed By: #### L 501.4020 ####[facility] [address] [place], [address] L501.5425on 07-10-2024 TROPONIN-I HS 6 pg/mL Normal 3.0-54.0 [facility] Comment on above: Order Comment: 1Y Result Comment: Leticia em Note: New Test Units and Gender Specific Reference Ranges. For more information see Policy Stat Procedure [place] High Sensitivity Troponin (TNIH) and attachments. Performed By: #### L 500.4050, L503.6005, L100.0100, L501.2450, L501.5425, L503.6620 ####[facility] [address] [place], [address] Lactic Acidon 07-10-2024 Lactate [Moles/Vol] 2.4 mmol/L Invalid Interpretation Code 0.4-1.9 [facility] Comment on above: Order Comment: Y Result Comment: Crit ical Result(s) Called at: 21:29:52 07/10/2024 by: YAW. Results read back by Wolf Stoner Performed By: #### L 503.6005 ####[facility] [address] [place], [address] Lactate [Moles/Vol] 2.5 mmol/L Invalid Interpretation Code 0.4-1.9 [facility] Comment on above: Order Comment: Y Result Comment: Crit ical Result(s) Called at: 18:11:29 07/10/2024 by: JO ANN2heuresavantWAZUCENA. Results read back by Tierra Dozier Performed By: #### L 500.4050, L503.6005, L100.0100, L501.2450, L501.5425, L503.6620 ####[facility] [address] [place], [address] Lipaseon 07-10-2024 Lipase [Catalytic activity/Vol] 14 U/L Normal 13-75 [facility] Comment on above: Order Comment: 1Y Result Comment: Leticia em note:LIPASE revised reference range effective 22.New Lipase methodology. Expected to produce lower valuesthan the previous assay method.NEW Reference Range: 13 - 75 U/L Performed By: #### L 500.4050, L503.6005, L100.0100, L501.2450, L501.5425, L503.6620 ####[facility] [address] [place], [address] M100.678on 07-10-2024 M100.678 Pending SARS-CoV-2 (COVID 19) Negative INFLUENZA A Negative INFLUENZA B Negative RSV PCR Negative Normal [facility] Comment on above: Performed By: #### M 100.678 ####[facility] [address] [place], [address] Urinalysis, Completeon 07-10 EPI,SQUAMOUS 0-5 SEEN Normal 5-10 [facility] Comment on above: Order Comment: CLEAN CATCH Performed By: #### L 400.0001 ####[facility] [address] [place], [address] RBC 0-5 SEEN Normal 0-5 [facility] Comment on above: Order Comment: CLEAN CATCH Performed By: #### L 400.0001 ####[facility] [address] [place], [address] WBC 5-10 SEEN Normal 0-5 [facility] Comment on above: Order Comment: CLEAN CATCH Performed By: #### L 400.0001 ####[facility] [address] [place], [address] YEAST 1+ /hpf Normal None Seen [facility] Comment on above: Order Comment: CLEAN CATCH Performed By: #### L 400.0001 ####[facility] [address] [place], [address] BACTERIA 0 SEEN Normal None Seen [facility] Comment on above: Order Comment: CLEAN CATCH Performed By: #### L 400.0001 ####[facility] [address] [place], [address] Mucus Ql (Urine sed) 0 SEEN Normal [facility] Comment on above: Order Comment: CLEAN CATCH Performed By: #### L 400.0001 ####[facility] [address] [place], [address] Endocrinology Visit Reporton 07-01-2024 Endocrinology Visit Report Normal [facility] Venous Duplex US - Rick Extre mon 06-23-2024 Venous Duplex US - Rick Extrem Normal [facility] Office Visit Reporton 2023 Office Visit Report Normal [facility] Bedside Glucoseon 05-29-2024 FINGERSTICK GLU 194 mg/dL High 74-106 [facility] Comment on above: Result Comment: OLGA GOMEZ OF PATIENT CARE PER NURSING PROTOCOL Performed By: #### L 501.080 ####[facility] [address] [place], [address] Discharge Instructionon 05-13 Discharge Instruction Normal [facility] MR/POSTOP.ANEon 05-29-2024 MR/POSTOP.ANE [facility] MR/[id number] 05-29-2024 MR/POSTOPAN2 [facility] Operative Reporton Operative Report Normal [facility] CNOVon 05-27-2024 CNOV Office Visit (INTMWS ) ANA IVORY ([id number]) 1940 F Date Time Provider Department 05/27/24 10:00 AM ALICIA BLOUNT INTMWS During your visit today, we recorded the following information about you: Temperature Pulse Respiration Blood pressure 97.6 degrees 83/minute 16/minute 128/68 Weight 74.2 kg Alicia Blount MD 07/04/2024 5:59 PM Signed This note was created using [employer]. Subjective Ana Ivory is a 84 year old female. Patient presents with: F/U 4 month SUBJECTIVE: Ana Ivory is a 84 year old year old lady here today for 4 month follow up appointment for review of medical conditions. The patient is a 84-year-old female with a history of diabetes mellitus type 1.5, presenting for a 4-month follow-up appointment. The patient reports experiencing hyperglycemia, with blood glucose levels reaching 200-300 mg/dL, particularly when delaying breakfast until 1000. She is currently on an insulin regimen prescribed by Dr. Munguia, which includes 55 units with breakfast, 28 units with lunch, and 38 units with dinner, along with 22 units of Lantus at bedtime. She notes that her blood glucose levels are stable when she eats breakfast at 0730 but tend to rise if she delays eating. She also reports an episode of hypoglycemia, with a blood glucose level dropping to 52 mg/dL, after consuming only a small bowl of cereal for breakfast and administering her usual 55 units of insulin. She is scheduled to see Dr. Munguia next week to discuss her insulin regimen and the possibility of using an insulin pump. The patient is also experiencing swelling in her leg, which she attributes to wearing a boot for the past six weeks. She reports that the swelling is improving and is scheduled to see Dr. Do next Sunday for further evaluation. She also mentions that her balance is off, and the boot is not helping with her mobility. The patient requests a refill of her lorazepam prescription, which she takes as needed. She also reports that she is scheduled for a bladder procedure with Dr. Don on and will take a full dose of lorazepam on that day. She is currently taking cephalexin at bedtime for the prevention of bladder infections. The patient reports a recent episode of flu-like symptoms, including headache, cough, nausea, vomiting, and diarrhea, which lasted for over a week. She was seen in the emergency room at the beginning of May and was diagnosed with a viral syndrome, dehydration, and abdominal pain. She received IV fluids, morphine, and Zofran during her visit and reports feeling better after treatment. She is considering getting a flu shot but prefers to wait until after her upcoming procedure. PAST MEDICAL HISTORY Diagnosis Date Acute gastritis without mention of hemorrhage 10/31/2007 Adverse reaction to non-steroidal anti-inflammatory drug (NSAID) 03/28/2010 KATHERIN positive 03/04/2014 Gonzales's esophagus C. difficile diarrhea 10/18/2011 Cataract 04/17/2013 [facility] [place], Dr. Dada Rodríguez. Mild cataract in L eye- no need for cataract surgery at this time. Continue to follow up the cataract. 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 At this time, we anticipate that [...] with heimlich -Pain management -Out of bed, co (more content not included)... Normal [facility] Neurology Visit Reporton Neurology Visit Report Normal [facility] Office Visit Reporton 2023 Office Visit Report Normal [facility] 12 Lead EKGon 05-01-2024 12 Lead EKG Normal [facility] Abdomen/Pelvis W IV Cont ONL Yon 05-01-2024 Abdomen/Pelvis W IV Cont ONLY Normal [facility] CBC W/Diff, Automatedon 04-13 Absolute Lymph 1.91 X10 3/uL Normal 0.83-4.51 [facility] Comment on above: Performed By: #### L 100.0100, L500.4050, L501.2450, L501.4020 ####[facility] [address] [place], [address] Absolute Neut 5.8 X10 3/uL Normal 2.0-7.7 [facility] Comment on above: Performed By: #### L 100.0100, L500.4050, L501.2450, L501.4020 ####[facility] [address] [place], [address] Basophils/100 WBC (Bld) 0.6 % Normal 0-1 [facility] Comment on above: Performed By: #### L 100.0100, L500.4050, L501.2450, L501.4020 ####[facility] [address] [place], [address] Eosinophils/100 WBC (Bld) 1.2 % Normal 0-5 [facility] Comment on above: Performed By: #### L 100.0100, L500.4050, L501.2450, L501.4020 ####[facility] [address] [place], [address] Erythrocyte distribution width (RBC) [Ratio] 13.2 % Normal 11.6-14.6 [facility] Comment on above: Performed By: #### L 100.0100, L500.4050, L501.2450, L501.4020 ####[facility] [address] [place], [address] Hematocrit (Bld) [Volume fraction] 43.2 % Normal 37-47 [facility] Comment on above: Performed By: #### L 100.0100, L500.4050, L501.2450, L501.4020 ####[facility] [address] [place], [address] Hemoglobin (Bld) [Mass/Vol] 14.4 g/dL Normal 12.0-15.0 [facility] Comment on above: Performed By: #### L 100.0100, L500.4050, L501.2450, L501.4020 ####[facility] [address] [place], [address] IG% 0.300 Normal 0.0-0.9 [facility] Comment on above: Result Comment: IG% - Immature Granulocytes (promyelocytes, myelocytes andmetamyelocytes) > 1% indicates that a LEFT SHIFT is Present. Performed By: #### L 100.0100, L500.4050, L501.2450, L501.4020 ####[facility] [address] [place], [address] Lymphocytes/100 WBC (Bld) 21.5 % Normal 19-41 [facility] Comment on above: Performed By: #### L 100.0100, L500.4050, L501.2450, L501.4020 ####[facility] [address] [place], [address] MCH (RBC) [Entitic mass] 31.4 pg Normal 27.0-32.0 [facility] Comment on above: Performed By: #### L 100.0100, L500.4050, L501.2450, L501.4020 ####[facility] [address] [place], [address] MCHC (RBC) [Mass/Vol] 33.3 g/dL Normal 32-36 [facility] Comment on above: Performed By: #### L 100.0100, L500.4050, L501.2450, L501.4020 ####[facility] [address] [place], [address] MCV (RBC) [Entitic vol] 94.3 fL Normal 81-99 [facility] Comment on above: Performed By: #### L 100.0100, L500.4050, L501.2450, L501.4020 ####[facility] [address] [place], [address] Monocytes/100 WBC (Bld) 10.9 % High 0-10 [facility] Comment on above: Performed By: #### L 100.0100, L500.4050, L501.2450, L501.4020 ####[facility] [address] [place], [address] Neutrophils/100 WBC (Bld) 65.5 % Normal 47-70 [facility] Comment on above: Performed By: #### L 100.0100, L500.4050, L501.2450, L501.4020 ####[facility] [address] [place], [address] Nucleated RBC (Bld) [#/Vol] 0 10*3/uL Normal 0-5 [facility] Comment on above: Performed By: #### L 100.0100, L500.4050, L501.2450, L501.4020 ####[facility] [address] [place], [address] Platelet mean volume (Bld) [Entitic vol] 9.9 fL Normal 6.2-12.0 [facility] Comment on above: Performed By: #### L 100.0100, L500.4050, L501.2450, L501.4020 ####[facility] [address] [place], [address] Platelets (Bld) [#/Vol] 284 10*3/uL Normal 150-450 [facility] Comment on above: Performed By: #### L 100.0100, L500.4050, L501.2450, L501.4020 ####[facility] [address] [place], [address] RBC (Bld) [#/Vol] 4.58 10*6/uL Normal 4.2-5.4 [facility] Comment on above: Performed By: #### L 100.0100, L500.4050, L501.2450, L501.4020 ####[facility] [address] [place], [address] RDW SD 45.0 fl High 35.1-43.9 [facility] Comment on above: Performed By: #### L 100.0100, L500.4050, L501.2450, L501.4020 ####[facility] [address] [place], [address] WBC (Bld) [#/Vol] 8.9 10*3/uL Normal 4.4-11.0 [facility] Comment on above: Performed By: #### L 100.0100, L500.4050, L501.2450, L501.4020 ####[facility] [address] [place], [address] Chest 1 View (Portable)on Chest 1 View (Portable) Normal [facility] Comprehensive Metabolic Prof ilon 05-01-2024 Albumin [Mass/Vol] 3.6 g/dL Normal 3.2-5.0 [facility] Comment on above: Order Comment: 'TROP ' Serial specimen #1, #2 or #3: 1 Performed By: #### L 100.0100, L500.4050, L501.2450, L501.4020 ####[facility] [address] [place], [address] Albumin/Globulin [Mass ratio] 0.9 {ratio} Normal 0.9-2.4 [facility] Comment on above: Order Comment: 'TROP ' Serial specimen #1, #2 or #3: 1 Performed By: #### L 100.0100, L500.4050, L501.2450, L501.4020 ####[facility] [address] [place], [address] ALK P 84 U/L Normal 45-117 [facility] Comment on above: Order Comment: 'TROP ' Serial specimen #1, #2 or #3: 1 Performed By: #### L 100.0100, L500.4050, L501.2450, L501.4020 ####[facility] [address] [place], [address] ALT [Catalytic activity/Vol] 23 U/L Normal 13-56 [facility] Comment on above: Order Comment: 'TROP ' Serial specimen #1, #2 or #3: 1 Performed By: #### L 100.0100, L500.4050, L501.2450, L501.4020 ####[facility] [address] [place], [address] AST [Catalytic activity/Vol] 17 U/L Normal 15-37 [facility] Comment on above: Order Comment: 'TROP ' Serial specimen #1, #2 or #3: 1 Performed By: #### L 100.0100, L500.4050, L501.2450, L501.4020 ####[facility] [address] [place], [address] Bilirubin [Mass/Vol] 0.40 mg/dL Normal 0.20-1.00 [facility] Comment on above: Order Comment: 'TROP ' Serial specimen #1, #2 or #3: 1 Result Comment: For patients on eltrombopag therapy, use of Dimension [place] TBIL is not recommended. Performed By: #### L 100.0100, L500.4050, L501.2450, L501.4020 ####[facility] [address] [place], [address] BUN/CRE 14.6 RATIO Normal 10-20 [facility] Comment on above: Order Comment: 'TROP ' Serial specimen #1, #2 or #3: 1 Performed By: #### L 100.0100, L500.4050, L501.2450, L501.4020 ####[facility] [address] [place], [address] CA,Total 9.4 mg/dL Normal 8.5-10.1 [facility] Comment on above: Order Comment: 'TROP ' Serial specimen #1, #2 or #3: 1 Performed By: #### L 100.0100, L500.4050, L501.2450, L501.4020 ####[facility] [address] [place], [address] Chloride [Moles/Vol] 108 mmol/L High 98-107 [facility] Comment on above: Order Comment: 'TROP ' Serial specimen #1, #2 or #3: 1 Performed By: #### L 100.0100, L500.4050, L501.2450, L501.4020 ####[facility] [address] [place], [address] CO2 [Moles/Vol] 23.0 mmol/L Normal 21.0-32.0 [facility] Comment on above: Order Comment: 'TROP ' Serial specimen #1, #2 or #3: 1 Performed By: #### L 100.0100, L500.4050, L501.2450, L501.4020 ####[facility] [address] [place], [address] Creatinine [Mass/Vol] 0.75 mg/dL Normal 0.55-1.02 [facility] Comment on above: Order Comment: 'TROP ' Serial specimen #1, #2 or #3: 1 Result Comment: The validity of the calculated GFR GFRAA in patients over70 years has not been determined. Clinical correlation isessential. Performed By: #### L 100.0100, L500.4050, L501.2450, L501.4020 ####[facility] [address] [place], [address] ECRCL 51.06 ml/min Normal [facility] Comment on above: Order Comment: 'TROP ' Serial specimen #1, #2 or #3: 1 Performed By: #### L 100.0100, L500.4050, L501.2450, L501.4020 ####[facility] [address] [place], [address] EST GFR - AA 95 mL/min Normal >60 [facility] Comment on above: Order Comment: 'TROP ' Serial specimen #1, #2 or #3: 1 Result Comment: Afri can Latvian GFR Calc Performed By: #### L 100.0100, L500.4050, L501.2450, L501.4020 ####[facility] [address] [place], [address] GAP 10 Normal 5-15 [facility] Comment on above: Order Comment: 'TROP ' Serial specimen #1, #2 or #3: 1 Performed By: #### L 100.0100, L500.4050, L501.2450, L501.4020 ####[facility] [address] [place], [address] GFR/1.73 sq M.predicted among non-blacks MDRD (S/P/Bld) [Vol rate/Area] 78 mL/min/{1.73_m2} Normal >60 [facility] Comment on above: Order Comment: 'TROP ' Serial specimen #1, #2 or #3: 1 Result Comment: Non- GFR Calc Performed By: #### L 100.0100, L500.4050, L501.2450, L501.4020 ####[facility] [address] [place], [address] Globulin (S) [Mass/Vol] 3.9 g/dL Normal 2.2-4.2 [facility] Comment on above: Order Comment: 'TROP ' Serial specimen #1, #2 or #3: 1 Performed By: #### L 100.0100, L500.4050, L501.2450, L501.4020 ####[facility] [address] [place], [address] Glucose [Mass/Vol] 95 mg/dL Normal 74-106 [facility] Comment on above: Order Comment: 'TROP ' Serial specimen #1, #2 or #3: 1 Performed By: #### L 100.0100, L500.4050, L501.2450, L501.4020 ####[facility] [address] [place], [address] Potassium [Moles/Vol] 3.5 mmol/L Normal 3.5-5.1 [facility] Comment on above: Order Comment: 'TROP ' Serial specimen #1, #2 or #3: 1 Performed By: #### L 100.0100, L500.4050, L501.2450, L501.4020 ####[facility] [address] [place], [address] Sodium [Moles/Vol] 141 mmol/L Normal 136-145 [facility] Comment on above: Order Comment: 'TROP ' Serial specimen #1, #2 or #3: 1 Performed By: #### L 100.0100, L500.4050, L501.2450, L501.4020 ####[facility] [address] [place], [address] T PROT 7.5 g/dL Normal 6.4-8.2 [facility] Comment on above: Order Comment: 'TROP ' Serial specimen #1, #2 or #3: 1 Performed By: #### L 100.0100, L500.4050, L501.2450, L501.4020 ####[facility] [address] [place], [address] Urea nitrogen [Mass/Vol] 11 mg/dL Normal 7-18 [facility] Comment on above: Order Comment: 'TROP ' Serial specimen #1, #2 or #3: 1 Performed By: #### L 100.0100, L500.4050, L501.2450, L501.4020 ####[facility] [address] [place], [address] Emergency Department Summary on 05-01-2024 Emergency Department Summary Normal [facility] L501.4020on 05-01-2024 TROPONIN-I HS 30 pg/mL Normal 3.0-54.0 [facility] Comment on above: Order Comment: 'TROP ' Serial specimen #1, #2 or #3: 1 Result Comment: Plea se Note: New Test Units and Gender Specific Reference Ranges. For more information see Policy Stat Procedure [place] High Sensitivity Troponin (TNIH) and attachments. Performed By: #### L 100.0100, L500.4050, L501.2450, L501.4020 ####[facility] [address] [place], [address] Lipaseon 05-01-2024 Lipase [Catalytic activity/Vol] 14 U/L Normal 13-75 [facility] Comment on above: Order Comment: 'TROP ' Serial specimen #1, #2 or #3: 1 Result Comment: Plea se note:LIPASE revised reference range effective 22.New Lipase methodology. Expected to produce lower valuesthan the previous assay method.NEW Reference Range: 13 - 75 U/L Performed By: #### L 100.0100, L500.4050, L501.2450, L501.4020 ####[facility] [address] [place], [address] M100.678on 05-01-2024 M100.678 Pending SARS-CoV-2 (COVID 19) Negative INFLUENZA A Negative INFLUENZA B Negative RSV PCR Negative Normal [facility] Comment on above: Performed By: #### M 100.678 ####[facility] [address] [place], [address] Urinalysis, Completeon 05-01 BACTERIA RARE Normal None Seen [facility] Comment on above: Order Comment: CLEAN CATCH Performed By: #### L 400.0001 ####[facility] [address] [place], [address] EPI,SQUAMOUS 10-25 SEEN Normal 5-10 [facility] Comment on above: Order Comment: CLEAN CATCH Performed By: #### [id number] ####[facility] [address] [place], [address] EPI,TRANSITION 0-5 SEEN Normal 0-5 [facility] Comment on above: Order Comment: CLEAN CATCH Performed By: #### L [id number] ####[facility] [address] [place], [address] WBC 0-5 SEEN Normal 0-5 [facility] Comment on above: Order Comment: CLEAN CATCH Performed By: #### [id number] ####[facility] [address] [place], [address] Mucus Ql (Urine sed) 0 SEEN Normal [facility] Comment on above: Order Comment: CLEAN CATCH Performed By: #### L [id number] ####[facility] [address] [place], [address] RBC 0 SEEN Normal 0-5 [facility] Comment on above: Order Comment: CLEAN CATCH Performed By: #### L [id number] ####[facility] [address] [place], [address] [facility] 04-28-2024 CNPN Telephone (CAWSTR) ANA IVORY ([id number]) 1940 F Date Time Provider Department 04/28/24 NURSE CARD ADMIN [facility] CATR During your visit today, we recorded the following information about you: Adela Pelletier RN 04/28/2024 1:09 PM Signed Called to review the below instructions but patient is in a boot and is not safe to be on the treadmill. Patient states that she will call to reschedule after she sees her podiatry. Adela Pelletier RN You are scheduled for a stress test on 05/05/24 at 11:20am. Please follow below instructions: *NOTHING BY MOUTH 4 HOURS prior to this test. (you may have sips of water) *NO CAFFEINE FOR 24 HOURS PRIOR TO TESTING (including TEA even decaf, COFFEE- even decaf, CHOCOLATE, PACO- even decaf) *Do NOT take MEDICATIONS CONTAINING CAFFEINE/XANTHINE for 24 HOURS prior to testing: Theophylline, Trental, Excedrin, Anacin, Goody Powders, No Doz, Vivarin, Midol, Diurex, Fiorinal, Fioricet, Esgic (butalbital) *Do NOT take Calcium Channel Blockers 24 HOURS prior to test. *Do NOT take Beta blockers 24 HOURS prior to test UNLESS your doctor tells you otherwise. *Do NOT use the following medications 48 HOURS prior to this test: Viagra(Sildenafil citrate), Cialis(Tadalafil), Vardenafil (Levitra, Stanyx), Avanfil (Stendra). *Do not take any of these meds prior to test unless provider directs you otherwise; Nitroglycerine (ex:Deponit, Nitrostat) Isosorbide (ex:Isordil, Sorbitrate,Imdur,Ismo). Medications on your list you should hold for 24 HOURS: metoprolol *All other medications may be taken as you normally would. *Guidelines for Diabetics: If you take insulin to control your blood sugar, ask you physician what amount you should take the day of the test. If you take pills to control blood sugar, on the day of the test, do NOT take them until AFTER the test. *FAILURE TO FOLLOW THESE INSTRUCTIONS WILL RESULT IN HAVING TO RESCHEDULE THE TEST. *Please wear comfortable clothes with a short-sleeved shirt and comfortable walking shoes. You will be on the treadmill for this test. *If you use an inhaler, bring it along with you just in case. Please check in on the first floor at Radiology: [address]; [place] [address] * If you need to cancel or reschedule this test or have any questions regarding this test, please call [phone]. Allergies As of Date: 04/28/2024 Noted Allergy Reaction ADHESIVE TAPE (ROSINS) 08/31/2008 4 - Hives Comments: Rash around bandaid never been tested for latex allergy ASPIRIN 04/16/2018 15 - Contraindication-Medical [place]* Comments: GI bleed BONIVA (IBANDRONATE) 12/04/2008 8 - GI Upset Comments: Esophageal burning CARAFATE (SUCRALFATE) 04/24/2012 14 - Other: See Comments Comments: feels poorly CIPROFLOXACIN 12/01/2013 14 - Other: See Comments Comments: photosensitivity, dermatitis CODEINE 08/24/2005 8 - GI Upset IBUPROFEN 03/22/2006 8 - GI Upset IODINATED CONTRAST MEDIA 06/10/2023 11 - Vomiting IODINE 08/25/2008 11 - Vomiting LANSOPRAZOLE 11/01/2011 6 - Diarrhea MACROBID (NITROFURANTOIN MONOHYD/*11/22/2021 8 - GI Upset 10 - Anaphylaxis Comments: Headache, nausea, stomach pain METFORMIN 05/10/2011 6 - Diarrhea MICONAZOLE 12/29/2020 14 - Other: See Comments NEOSPORIN ([id number]* 2 - Rash Comments: blisters PIOGLITAZONE 12/29/2020 16 - Unknown PROTONIX (PANTOPRAZOLE) 01/13/2010 6 - Diarrhea RELAFEN (NABUMETONE) 03/22/2006 8 - GI Upset 11 - Vomiting SHRIMP 12/21/2021 8 - GI Upset ACTOS (PIOGLITAZONE HCL) 12/03/2016 7 - Swelling Date Reviewed: 02/17/2024 Reviewed by: Ansley Mckay MA - Fully Assessed Reason for Visit: Stress Test Instructions for 05/05/24 [Other] Prescriptions as of 04/28/2024 - Acidophilus-Bif Animalis 10 billion cell cap Take 1 capsule by mouth once daily. - gabapentin (NEURONTIN) 300 mg capsule Take 1 capsule by mouth two times a day for 180 days. Morning and bedtime - cyanocobalamin 1,000 mcg/mL Inject intramuscularly once every month. - LORazepam (ATIVAN) 1 mg tablet Take 0.5-1 tablets by mouth once daily as needed for up to 90 days. - rosuvastatin (CRESTOR) 10 mg tablet Take 1 tablet by mouth daily at bedtime. As directed - cephALEXin (KEFLEX) 250 mg capsule Take 250 mg by mouth daily at bedtime. - esomeprazole (NEXIUM) 40 mg capsule Take 1 capsule by mouth daily at 6 am. - insulin aspart U-100 (NOVOLOG FLEXPEN U-100 INSULIN) 100 unit/mL (3 mL) Inject 28 Units subcutaneously daily with breakfast AND 28 Units daily with lunch AND 28 Units daily with dinner. Adjust as directed. (Dr. Genny funes) Also has SSI. - insulin glargine (LANTUS SOLOSTAR U-100 INSULIN) 100 unit/mL (3 mL) Inject 20 Units subcutaneously daily at bedtime. (Dr. Genny funes) - Insulin Rochelle, Disposable, (BD ULTRA-FINE FOZIA PEN NEEDLE) 32 gauge x 5/32 Use one needle (more content not included)... Normal [facility] Office Visit Reporton 2023 Office Visit Report Normal [facility] Endocrinology Visit Reporton 04-07-2024 Endocrinology Visit Report Normal [facility] XR Chest PA and Lateralon IMPRESSION: No acute radiographic abnormality. [employer] Supervisor: ABHILASH Transcribe Date/Time: Feb 12 2024 11:41A Dictated by : RAKESH MULLEN, DO This examination was interpreted and the report reviewed and electronically signed by: RAKESH MULLEN DO on Feb 12 2024 11:44AM [facility] DIVISION OF RADIOLOGY * * *Final Report* * * DATE OF EXAM: Feb 12 2024 11:32AM WOX [id number] - XR CHEST 2V FRONTAL/LAT / PROCEDURE REASON: Acute cough * * * * Physician Interpretation * * * * EXAMINATION: CHEST RADIOGRAPH (2 VIEW FRONTAL & LATERAL) PATIENT/TECHNOLOGIST PROVIDED HISTORY: cough, wheezing, sinus for 5 days CLINICAL HISTORY: 83 years old Female with Acute cough MQ: XC2_6 EXAM DATE/TIME: 02/12/2024 11:32 AM COMPARISON: Chest radiograph(s) dated 06/03/2021, 07/12/2017, CT 06/30/2016 RESULT: Lines, tubes, and devices: None. Lungs and pleura: Biapical pleural-parenchymal scarring RIGHT greater than LEFT and coarsening of the lung markings, unchanged. Calcified granuloma RIGHT middle lobe. No consolidation. No pleural effusion or pneumothorax. Cardiomediastinal silhouette: Normal cardiomediastinal silhouette. Bones and soft tissues: No acute finding. DIVISION OF RADIOLOGY Provider, [facility] - 02/12/2024 * * *Final Report* * * DATE OF EXAM: Feb 12 2024 11:32AM WOX [id number] - XR CHEST 2V FRONTAL/LAT / PROCEDURE REASON: Acute cough * * * * Physician Interpretation * * * * EXAMINATION: CHEST RADIOGRAPH (2 VIEW FRONTAL & LATERAL) PATIENT/TECHNOLOGIST PROVIDED HISTORY: cough, wheezing, sinus for 5 days CLINICAL HISTORY: 83 years old Female with Acute cough MQ: XC2_6 EXAM DATE/TIME: 02/12/2024 11:32 AM COMPARISON: Chest radiograph(s) dated 06/03/2021, 07/12/2017, CT 06/30/2016 RESULT: Lines, tubes, and devices: None. Lungs and pleura: Biapical pleural-parenchymal scarring RIGHT greater than LEFT and coarsening of the lung markings, unchanged. Calcified granuloma RIGHT middle lobe. No consolidation. No pleural effusion or pneumothorax. Cardiomediastinal silhouette: Normal cardiomediastinal silhouette. Bones and soft tissues: No acute finding. IMPRESSION IMPRESSION: No acute radiographic abnormality. [employer] Supervisor: ABHILASH Transcribe Date/Time: Feb 12 2024 11:41A Dictated by : RAKESH MULLEN DO This examination was interpreted and the report reviewed and electronically signed by: RAKESH MULLEN DO on Feb 12 2024 11:44AM EST [facility] Radiology Study observation (narrative) [facility] XR Chest PA and LateralOrder ed By: Ccf Provider on 02-12-[address] [facility] ALBUMIN/CREATININE RATIO, UR INEon 02-01-2024 Albumin DL <= 20 mg/L (U) [Mass/Vol] mg/L mg/L [facility] Albumin/Creatinine (U) [Mass ratio] mg/g NINF - 30 mg/g [facility] Comment on above: Adult Male and Femal e Nephrotic Criteria: <30 mg/g is considered normal to mildly increased 30-300 mg/g is considered moderately increased >300 mg/g is considered severely increased KDIGO. (2013). KDIGO 2012 Clinical Practice Guideline for the Evaluation and Management of Chronic Kidney Disease. Official Journal of the International Society of Nephrology, 3(1), 1-150. Creatinine (U) [Mass/Vol] 87.9 mg/dL 20.0 - 300.0 mg/dL [facility] ECG COMPLETEon 02-01-2024 Atrial Rate [address] [facility] Calculated P Mcgraws 54 degrees [facility] Calculated R Mcgraws -21 degrees [facility] Calculated T Mcgraws 54 degrees [facility] P-R Interval [address] [facility] QRS Duration [address] [facility] QT Interval [address] [facility] QTC Calculation (Bazett) [address] [facility] Ventricular Rate 87 BPM [facility] NORMAL SINUS RHYTHM EARLY R WAVE TRANSITION BORDERLINE ECG Confirmed by MD ROBLES GREGORY () on 02/01/2024 8:39:51 [facility] NAME : SARAH IVORY PID : [id number] : 1940 Gender : Female Race : ORD : [id number] Procedure Date : Jan 31 2024 11:04:48 Edit Date : Feb 01 2024 08:39:52 Diagnosis: NORMAL SINUS RHYTHM EARLY R WAVE TRANSITION BORDERLINE ECG Confirmed by MD ROBLES GREGORY () on 02/01/2024 8:39:51 AM Test Reason : R07.9 Chest pain, unspecified type Location : 185 : [facility] Overread By : MD ROBLES GREGORY Edited By : MD ROBLES GREGORY Referred By : CLARENCE BERRY Acquired by : Rhonda HINTON, [facility] UA DIP, URINE (POC)on 2023 BILIRUBIN UA (POCT) Negative Negative David [facility] CLARITY UA (POCT) Cloudy [facility] COLOR UA (POCT) Dark yellow [facility] GLUCOSE UA (POCT) Negative Negative mg/dL [facility] Hemoglobin Ql (U) Small Abnormal Negative [facility] Interpretation and review of laboratory results Abnormal [facility] KETONE UA (POCT) Negative Negative mg/dL [facility] LEUKOCYTES UA (POCT) Moderate Abnormal Negative [facility] NITRITE UA (POCT) Positive Abnormal Negative [facility] PH UA (POCT) 5.0 4.5 - 8.[address] [facility] Protein Ql (U) 100 mg/dL Abnormal Negative [facility] SPECIFIC GRAVITY UA (POCT) 1.015 1.005 - 1.[address] [facility] UROBILINOGEN UA (POCT) 0.2 Karla l E.U./dL [facility] Location:[address], [place], [place], [id number] [place] [address] POINT OF CARE [facility] CBC panel Auto (Bld)on 09-28 Erythrocyte distribution width (RBC) [Ratio] 13.2 % 11.5 - 15.0 % [facility] Hematocrit (Bld) [Volume fraction] 37.8 % 36.0 - 46.0 % [facility] Hemoglobin (Bld) [Mass/Vol] 12.8 g/dL 11.5 - 15.5 g/dL [facility] MCH (RBC) [Entitic mass] 31.4 pg 26.0 - 34.[address] [facility] MCHC (RBC) [Mass/Vol] 33.9 g/dL 30.5 - 36.0 g/dL [facility] MCV (RBC) [Entitic vol] 92.9 fL 80.0 - 100.[address] [facility] Nucleated RBC (Bld) [#/Vol] <0.01 k/uL [facility] Platelet mean volume (Bld) [Entitic vol] 9.7 fL 9.0 - 12.[address] [facility] Platelets (Bld) [#/Vol] 219 10*3/uL 150 - 400 k/uL [facility] RBC (Bld) [#/Vol] 4.07 10*6/uL 3.90 - 5.20 m/uL [facility] WBC (Bld) [#/Vol] 6.60 10*3/uL 3.70 - 11.00 k/uL [facility] Comprehensive metabolic 2000 panelon 09-28-2023 Albumin [Mass/Vol] 4.0 g/dL 3.9 - 4.9 g/dL [facility] ALP [Catalytic activity/Vol] 88 U/L 34 - 123 U/L [facility] ALT [Catalytic activity/Vol] 12 U/L 7 - 38 U/L [facility] Anion gap [Moles/Vol] 10 mmol/L 9 - 18 mmol/L [facility] AST [Catalytic activity/Vol] 13 U/L 13 - 35 U/L [facility] Bilirubin [Mass/Vol] 0.4 mg/dL 0.2 - 1 .3 mg/dL [facility] Calcium [Mass/Vol] 8.9 mg/dL 8.5 - 10. 2 mg/dL [facility] Chloride [Moles/Vol] 102 mmol/L 97 - 10 5 mmol/L [facility] CO2 [Moles/Vol] 27 mmol/L 22 - 30 mmol/L [facility] Creatinine [Mass/Vol] 0.68 mg/dL 0.58 - 0.96 mg/dL [facility] Estimated Glomerular Filtration Rate 88 mL/min/1.73m >=60 mL/min/1.[address] [facility] Glucose [Mass/Vol] 289 mg/dL High 74 - 99 mg/dL [facility] Potassium [Moles/Vol] 4.3 mmol/L 3.7 - 5.1 mmol/L [facility] Protein [Mass/Vol] 6.6 g/dL 6.3 - 8.0 g/dL [facility] Sodium [Moles/Vol] 139 mmol/L 136 - 144 mmol/L [facility] Urea nitrogen [Mass/Vol] 15 mg/dL 7 - 21 mg/dL [facility] HbA1c (Bld)on 09-28-2023 Average glucose Estimated from glycated hemoglobin (Bld) [Mass/Vol] 183 mg/dL [facility] HbA1c (Bld) [Mass fraction] 8.0 % High 4.3 - 5.6 % [facility] Laboratory - Hematology and Cell countson 07-31-2023 HbA1c (Bld) [Mass fraction] 8.4 % 4.2-6.3 [facility] Glucose Glucometer (BldC) [M ass/Vol]Ordered By: Denzel Forbes on 06-26-2023 Glucose [Mass/Vol] 254 mg/dL 74-106 [facility] Comment on above: MANAGEMENT OF PATIEN T CARE PER NURSING PROTOCOL Absolute lymphocyte countOrd ered By: Denzel Forbes on 06-21-2023 Lymphocytes Auto (Unsp spec) [#/Vol] 1.92 10*3/uL 0.83-4.51 [facility] Basophil percentageOrdered B y: Denzel Forbes on 06-21-2023 Basophils/100 WBC (Bld) 0.6 % 0-1 [facility] Chloride [Moles/Vol] 99 mmol/L 98-107 [facility] Eosinophils/100 WBC (Bld) 3.7 % 0-5 [facility] Glucose [Mass/Vol] 215 mg/dL 74-106 [facility] Comment on above: Glucose result great er than or equal to 200 mg/dLsuggests DIABETES MELLITUS per A.D.A. criteria. Neutrophils (Bld) [#/Vol] 8.9 10*3/uL 2.0-7.7 [facility] Neutrophils/100 WBC (Bld) 70.9 % 47-70 [facility] Potassium [Moles/Vol] 4.5 mmol/L 3.5-5.1 [facility] Sodium [Moles/Vol] 137 mmol/L 136-145 [facility] WBC (Bld) [#/Vol] 12.6 10*3/uL 4.4-11.0 [facility] Blood erythrocytes count (nu mber/volume)Ordered By: Denzel Forbes on 06-21-2023 RBC (Bld) [#/Vol] 4.52 10*6/uL 4.2-5.4 [facility] Blood hemoglobin measurement (mass/volume)Ordered By: Denzel Forbes on 06-21-2023 Hemoglobin (Bld) [Mass/Vol] 13.9 g/dL 12.0-15.0 [facility] Blood lymphocytes/100 leukoc ytesOrdered By: Denzel Forbes on 06-21-2023 Lymphocytes/100 WBC (Bld) 15.2 % 19-41 [facility] Blood monocytes/100 leukocyt esOrdered By: Denzel Forbes on 06-21-2023 Monocytes/100 WBC (Bld) 9.3 % 0-10 [facility] Blood platelet mean volumeOr dered By: Denzel Forbes on 06-21-2023 Platelet mean volume (Bld) [Entitic vol] 10.0 fL 6.2-12.0 [facility] Determination of erythrocyte mean corpuscular volume (MCV)Ordered By: Denzel Forbes on 06-21-2023 MCV (RBC) [Entitic vol] 96.2 fL 81-99 [facility] Hematocrit Auto (Bld) [Volum e fraction]Ordered By: Denzel Forbes on 06-21-2023 Hematocrit (Bld) [Volume fraction] 43.5 % 37-47 [facility] Laboratory - Chemistry and C hemistry - challengeOrdered By: Denzel Andrei 06-21-2023 CO2 [Moles/Vol] 30.0 mmol/L 21.0-32.0 [facility] Urea nitrogen/Creatinine [Mass ratio] 21.7 mg/mg 10-20 [facility] Laboratory - Hematology and Cell countsOrdered By: Denzel Forbes 06-21-2023 Erythrocyte distribution width (RBC) [Entitic vol] 48.2 fL 35.1-43.9 [facility] Erythrocyte distribution width (RBC) [Ratio] 13.6 % 11.6-14.6 [facility] Immature granulocytes/100 WBC (Bld) 0.300 % 0.0-0.9 [facility] Comment on above: IG% - Immature Granu locytes (promyelocytes, myelocytes and metamyelocytes) > 1% indicates that a LEFT SHIFT is Present. MCH (RBC) [Entitic mass] 30.8 pg 27.0-32.0 [facility] Nucleated RBC/100 WBC (Bld) [Ratio] 0 % 0-5 [facility] MCHC Auto (RBC) [Mass/Vol]Or dered By: Denzel Forbes on 06-21-2023 MCHC (RBC) [Mass/Vol] 32.0 g/dL 32-36 [facility] No Panel InformationOrdered By: Denzel Forbes on 06-21-2023 Estimated Creatinine Clearance Calc 32.92 ml/min [facility] Estimated GFR (MDRD) Amer 64 mL/min >60 [facility] Comment on above: GFR Calc Estimated GFR (MDRD) Non-Af Amer 53 mL/min >60 [facility] Comment on above: Non- GFR Calc Platelets bldOrdered By: Denzel Forbes on 06-21-2023 Platelets (Bld) [#/Vol] 304 10*3/uL 150-450 [facility] Serum or plasma calcium stephie urement (mass/volume)Ordered By: Denzel Forbes on 06-21-2023 Calcium [Mass/Vol] 9.4 mg/dL 8.5-10.1 [facility] Serum or plasma creatinine m easurement (mass/volume)Ordered By: Denzel Forbes on 06-21-2023 Creatinine [Mass/Vol] 1.06 mg/dL 0.55-1.02 [facility] Comment on above: The validity of the calculated GFR & GFRAA in patients over 70 years has not been determined. Clinical correlation is essential. Serum or plasma urea nitroge n measurement (mass/volume)Ordered By: Denzel Forbes on 06-21-2023 Urea nitrogen [Mass/Vol] 23 mg/dL 7-18 [facility] Thin prep Papanicolaou smear with manual screeningOrdered By: Denzel Forbes on 06-21-2023 Thin prep Papanicolaou smear with manual screening 8 5-15 [facility] Glucose Glucometer (BldC) [M ass/Vol]Ordered By: Denzel Forbes on 06-19-2023 Glucose [Mass/Vol] 244 mg/dL 74-106 [facility] Comment on above: MANAGEMENT OF PATIEN T CARE PER NURSING PROTOCOL Glucose Glucometer (BldC) [M ass/Vol]Ordered By: Denzel Forbes on 06-18-2023 Glucose [Mass/Vol] 202 mg/dL 74-106 [facility] Comment on above: MANAGEMENT OF PATIEN T CARE PER NURSING PROTOCOL Absolute lymphocyte countOrd ered By: Denzel Forbes on 06-14-2023 Lymphocytes Auto (Unsp spec) [#/Vol] 1.94 10*3/uL 0.83-4.51 [facility] Basophil percentageOrdered B y: Denzel Forbes on 06-14-2023 Basophils/100 WBC (Bld) 0.4 % 0-1 [facility] Chloride [Moles/Vol] 104 mmol/L 98-107 [facility] Eosinophils/100 WBC (Bld) 5.6 % 0-5 [facility] Glucose [Mass/Vol] 258 mg/dL 74-106 [facility] Comment on above: Glucose result great er than or equal to 200 mg/dLsuggests DIABETES MELLITUS per A.D.A. criteria. Neutrophils (Bld) [#/Vol] 3.6 10*3/uL 2.0-7.7 [facility] Neutrophils/100 WBC (Bld) 53.7 % 47-70 [facility] Potassium [Moles/Vol] 3.6 mmol/L 3.5-5.1 [facility] Sodium [Moles/Vol] 138 mmol/L 136-145 [facility] WBC (Bld) [#/Vol] 6.7 10*3/uL 4.4-11.0 [facility] Blood erythrocytes count (nu mber/volume)Ordered By: Denzel Forbes on 06-14-2023 RBC (Bld) [#/Vol] 4.01 10*6/uL 4.2-5.4 [facility] Blood hemoglobin measurement (mass/volume)Ordered By: Denzel Forbes on 06-14-2023 Hemoglobin (Bld) [Mass/Vol] 12.5 g/dL 12.0-15.0 [facility] Blood lymphocytes/100 leukoc ytesOrdered By: Denzel Forbes on 06-14-2023 Lymphocytes/100 WBC (Bld) 28.8 % 19-41 [facility] Blood monocytes/100 leukocyt esOrdered By: Denzel Forbes on 06-14-2023 Monocytes/100 WBC (Bld) 11.1 % 0-10 [facility] Blood platelet mean volumeOr dered By: Denzel Forbes on 06-14-2023 Platelet mean volume (Bld) [Entitic vol] 9.6 fL 6.2-12.0 [facility] Determination of erythrocyte mean corpuscular volume (MCV)Ordered By: Denzel Forbes on 06-14-2023 MCV (RBC) [Entitic vol] 91.5 fL 81-99 [facility] Hematocrit Auto (Bld) [Volum e fraction]Ordered By: Denzel Forbes on 06-14-2023 Hematocrit (Bld) [Volume fraction] 36.7 % 37-47 [facility] Laboratory - Chemistry and C hemistry - challengeOrdered By: Denzel Forbes on 06-14-2023 CO2 [Moles/Vol] 27.0 mmol/L 21.0-32.0 [facility] Urea nitrogen/Creatinine [Mass ratio] 23.6 mg/mg 10-20 [facility] Laboratory - Hematology and Cell countsOrdered By: Denzel Forbes on 06-14-2023 Erythrocyte distribution width (RBC) [Entitic vol] 45.3 fL 35.1-43.9 [facility] Erythrocyte distribution width (RBC) [Ratio] 13.5 % 11.6-14.6 [facility] Immature granulocytes/100 WBC (Bld) 0.400 % 0.0-0.9 [facility] Comment on above: IG% - Immature Granu locytes (promyelocytes, myelocytes and metamyelocytes) > 1% indicates that a LEFT SHIFT is Present. MCH (RBC) [Entitic mass] 31.2 pg 27.0-32.0 [facility] Nucleated RBC/100 WBC (Bld) [Ratio] 0 % 0-5 [facility] MCHC Auto (RBC) [Mass/Vol]Or dered By: Denzel Forbes on 06-14-2023 MCHC (RBC) [Mass/Vol] 34.1 g/dL 32-36 [facility] No Panel InformationOrdered By: Denzel Forbes on 06-14-2023 Estimated Creatinine Clearance Calc 34.90 ml/min [facility] Estimated GFR (MDRD) Amer 107 mL/min >60 [facility] Comment on above: GFR Calc Estimated GFR (MDRD) Non-Af Amer 89 mL/min >60 [facility] Comment on above: Non- GFR Calc Platelets bldOrdered By: Denzel Forbes on 06-14-2023 Platelets (Bld) [#/Vol] 218 10*3/uL 150-450 [facility] Serum or plasma calcium stephie urement (mass/volume)Ordered By: Denzel Forbes on 06-14-2023 Calcium [Mass/Vol] 8.5 mg/dL 8.5-10.1 [facility] Serum or plasma creatinine m easurement (mass/volume)Ordered By: Denzel Forbes on 06-14-2023 Creatinine [Mass/Vol] 0.68 mg/dL 0.55-1.02 [facility] Comment on above: The validity of the calculated GFR & GFRAA in patients over 70 years has not been determined. Clinical correlation is essential. Serum or plasma urea nitroge n measurement (mass/volume)Ordered By: Denzel Forbes on 06-14-2023 Urea nitrogen [Mass/Vol] 16 mg/dL 7-18 [facility] Thin prep Papanicolaou smear with manual screeningOrdered By: Denzel Forbes on 06-14-2023 Thin prep Papanicolaou smear with manual screening 7 5-15 [facility] Absolute lymphocyte countOrd ered By: Nacho Poe on 06-13-2023 Lymphocytes Auto (Unsp spec) [#/Vol] 1.66 10*3/uL 0.83-4.51 [facility] Basophil percentageOrdered B y: Nacho Poe on 06-13-2023 Basophil percentage 2.7 mg/dL 2.5-4.9 [facility] Basophils/100 WBC (Bld) 0.6 % 0-1 [facility] Chloride [Moles/Vol] 108 mmol/L 98-107 [facility] Eosinophils/100 WBC (Bld) 6.8 % 0-5 [facility] Glucose [Mass/Vol] 223 mg/dL 74-106 [facility] Comment on above: Glucose result great er than or equal to 200 mg/dLsuggests DIABETES MELLITUS per A.D.A. criteria. Neutrophils (Bld) [#/Vol] 3.9 10*3/uL 2.0-7.7 [facility] Neutrophils/100 WBC (Bld) 56.9 % 47-70 [facility] Potassium [Moles/Vol] 3.5 mmol/L 3.5-5.1 [facility] Sodium [Moles/Vol] 138 mmol/L 136-145 [facility] WBC (Bld) [#/Vol] 6.9 10*3/uL 4.4-11.0 [facility] Blood erythrocytes count (nu mber/volume)Ordered By: Nacho Poe on 06-13-2023 RBC (Bld) [#/Vol] 4.29 10*6/uL 4.2-5.4 [facility] Blood hemoglobin measurement (mass/volume)Ordered By: Nacho Poe on 06-13-2023 Hemoglobin (Bld) [Mass/Vol] 13.0 g/dL 12.0-15.0 [facility] Blood lymphocytes/100 leukoc ytesOrdered By: Nacho Poe on 06-13-2023 Lymphocytes/100 WBC (Bld) 24.1 % 19-41 [facility] Blood monocytes/100 leukocyt esOrdered By: Nacho Poe on 06-13-2023 Monocytes/100 WBC (Bld) 11.2 % 0-10 [facility] Blood platelet mean volumeOr dered By: Nacho Poe on 06-13-2023 Platelet mean volume (Bld) [Entitic vol] 10.0 fL 6.2-12.0 [facility] Determination of erythrocyte mean corpuscular volume (MCV)Ordered By: Nacho Poe on 06-13-2023 MCV (RBC) [Entitic vol] 90.2 fL 81-99 [facility] Glucose Glucometer (BldC) [M ass/Vol]Ordered By: Nacho Poe on 06-13-2023 Glucose [Mass/Vol] 335 mg/dL 74-106 [facility] Comment on above: MANAGEMENT OF PATIEN T CARE PER NURSING PROTOCOL Hematocrit Auto (Bld) [Volum e fraction]Ordered By: Nacho Poe on 06-13-2023 Hematocrit (Bld) [Volume fraction] 38.7 % 37-47 [facility] Laboratory - Chemistry and C hemistry - challengeOrdered By: Nacho Poe on 06-13-2023 CO2 [Moles/Vol] 27.0 mmol/L 21.0-32.0 [facility] Magnesium [Mass/Vol] 1.9 mg/dL 1.6-2.6 [facility] Urea nitrogen/Creatinine [Mass ratio] 18.5 mg/mg 10-20 [facility] Laboratory - Hematology and Cell countsOrdered By: Nacho Poe on 06-13-2023 Erythrocyte distribution width (RBC) [Entitic vol] 43.2 fL 35.1-43.9 [facility] Erythrocyte distribution width (RBC) [Ratio] 13.2 % 11.6-14.6 [facility] Immature granulocytes/100 WBC (Bld) 0.400 % 0.0-0.9 [facility] Comment on above: IG% - Immature Granu locytes (promyelocytes, myelocytes and metamyelocytes) > 1% indicates that a LEFT SHIFT is Present. MCH (RBC) [Entitic mass] 30.3 pg 27.0-32.0 [facility] Nucleated RBC/100 WBC (Bld) [Ratio] 0 % 0-5 [facility] MCHC Auto (RBC) [Mass/Vol]Or dered By: Nacho Poe on 06-13-2023 MCHC (RBC) [Mass/Vol] 33.6 g/dL 32-36 [facility] No Panel InformationOrdered By: Nacho Poe on 06-13-2023 Estimated Creatinine Clearance Calc 34.90 ml/min [facility] Estimated GFR (MDRD) Amer 113 mL/min >60 [facility] Comment on above: GFR Calc Estimated GFR (MDRD) Non-Af Amer 93 mL/min >60 [facility] Comment on above: Non- GFR Calc Platelets bldOrdered By: Newton Poe on 06-13-2023 Platelets (Bld) [#/Vol] 213 10*3/uL 150-450 [facility] Serum or plasma calcium stephie urement (mass/volume)Ordered By: Nacho Poe on 06-13-2023 Calcium [Mass/Vol] 8.7 mg/dL 8.5-10.1 [facility] Serum or plasma creatinine m easurement (mass/volume)Ordered By: Nacho Poe on 06-13-2023 Creatinine [Mass/Vol] 0.65 mg/dL 0.55-1.02 [facility] Comment on above: The validity of the calculated GFR & GFRAA in patients over 70 years has not been determined. Clinical correlation is essential. Serum or plasma urea nitroge n measurement (mass/volume)Ordered By: Nacho Poe on 06-13-2023 Urea nitrogen [Mass/Vol] 12 mg/dL 7-18 [facility] Thin prep Papanicolaou smear with manual screeningOrdered By: Nacho Poe on 06-13-2023 Thin prep Papanicolaou smear with manual screening 3 5-15 [facility] Laboratory - Chemistry and C hemistry - challengeOrdered By: Edwin Morgan on 06-11-2023 CK [Catalytic activity/Vol] 240 U/L 26-192 [facility] Serum or plasma acetone stephie urement (mass/volume)Ordered By: Edwin Morgan on 06-11-2023 Acetone [Mass/Vol] SMALL NEG [facility] Comment on above: Previous reported re sult: NEGATIVE Edited by: KEMAR on 06/11/23:0706 AMENDED REPORT 06/11/23 0706 ACETONE SERUM previously reported as: NEGATIVE Absolute lymphocyte countOrd ered By: Dada Maynard on 06-10-2023 Lymphocytes Auto (Unsp spec) [#/Vol] 0.73 10*3/uL 0.83-4.51 [facility] Basophil percentageOrdered B y: Dada Maynard on 06-10-2023 Lactate [Moles/Vol] 1.7 mmol/L 0.4-2.0 [facility] Basophils/100 WBC (Bld) 0.1 % 0-1 [facility] Bilirubin [Mass/Vol] 0.50 mg/dL 0.20-1.00 [facility] Comment on above: For patients on eltr ombopag therapy, use of Dimension [place] TBIL is not recommended. Chloride [Moles/Vol] 105 mmol/L 98-107 [facility] Eosinophils/100 WBC (Bld) 2.1 % 0-5 [facility] Glucose [Mass/Vol] 238 mg/dL 74-106 [facility] Comment on above: Glucose result great er than or equal to 200 mg/dLsuggests DIABETES MELLITUS per A.D.A. criteria. Lactate [Moles/Vol] 2.9 mmol/L 0.4-2.0 [facility] Comment on above: Critical Result(s) Checo Dunlap at: 18:41:00 06/10/2023 by: CCrytzer. Results read back by same. Neutrophils (Bld) [#/Vol] 11.1 10*3/uL 2.0-7.7 [facility] Neutrophils/100 WBC (Bld) 86.1 % 47-70 [facility] Potassium [Moles/Vol] 3.9 mmol/L 3.5-5.1 [facility] Protein [Mass/Vol] 8.0 g/dL 6.4-8.2 [facility] Sodium [Moles/Vol] 134 mmol/L 136-145 [facility] WBC (Bld) [#/Vol] 12.9 10*3/uL 4.4-11.0 [facility] Blood erythrocytes count (nu mber/volume)Ordered By: Dada Maynard on 06-10-2023 RBC (Bld) [#/Vol] 4.94 10*6/uL 4.2-5.4 [facility] Blood hemoglobin measurement (mass/volume)Ordered By: Dada Maynard on 06-10-2023 Hemoglobin (Bld) [Mass/Vol] 15.3 g/dL 12.0-15.0 [facility] Blood lymphocytes/100 leukoc ytesOrdered By: Dada Maynard on 06-10-2023 Lymphocytes/100 WBC (Bld) 5.7 % 19-41 [facility] Blood monocytes/100 leukocyt esOrdered By: Dada Maynard on 06-10-2023 Monocytes/100 WBC (Bld) 5.8 % 0-10 [facility] Blood platelet mean volumeOr dered By: Dada Maynard on 06-10-2023 Platelet mean volume (Bld) [Entitic vol] 9.8 fL 6.2-12.0 [facility] COVID-19 virus antigen assay Ordered By: Dada Maynard on 06-10-2023 SARS-CoV-2 (COVID-19) Ag IA.rapid Ql (Resp) [facility] Culture, urineOrdered By: Rainer Maynard on 06-10-2023 Bacteria identified Cx Nom (U) Culture exhibits no growth. [facility] Determination of erythrocyte mean corpuscular volume (MCV)Ordered By: Dada Maynard on 06-10-2023 MCV (RBC) [Entitic vol] 90.7 fL 81-99 [facility] Hematocrit Auto (Bld) [Volum e fraction]Ordered By: Dada Maynard on 06-10-2023 Hematocrit (Bld) [Volume fraction] 44.8 % 37-47 [facility] INR in Blood by Coagulation assayOrdered By: Dada Maynard on 06-10-2023 INR Coag (Bld) [Relative time] 1.1 {INR} [facility] Laboratory - Chemistry and C hemistry - challengeOrdered By: Dada Maynard on 06-10-2023 ALP [Catalytic activity/Vol] 109 U/L 45-117 [facility] ALT [Catalytic activity/Vol] 19 U/L 13-56 [facility] CK [Catalytic activity/Vol] 301 U/L 26-192 [facility] CO2 [Moles/Vol] 17.0 mmol/L 21.0-32.0 [facility] Globulin (S) [Mass/Vol] 4.5 g/dL 2.2-4.2 [facility] Urea nitrogen/Creatinine [Mass ratio] 19.3 mg/mg 10-20 [facility] Laboratory - CoagulationOrde red By: Dada Maynard on 06-10-2023 aPTT Coag (Bld) [Time] 27.6 s 24.1-36.2 [facility] PT Coag (PPP) [Time] 14.0 s 11.7-14.9 [facility] Laboratory - Hematology and Cell countsOrdered By: Dada Maynard on 06-10-2023 Erythrocyte distribution width (RBC) [Entitic vol] 43.3 fL 35.1-43.9 [facility] Erythrocyte distribution width (RBC) [Ratio] 13.2 % 11.6-14.6 [facility] Immature granulocytes/100 WBC (Bld) 0.200 % 0.0-0.9 [facility] Comment on above: IG% - Immature Granu locytes (promyelocytes, myelocytes and metamyelocytes) > 1% indicates that a LEFT SHIFT is Present. MCH (RBC) [Entitic mass] 31.0 pg 27.0-32.0 [facility] Nucleated RBC/100 WBC (Bld) [Ratio] 0 % 0-5 [facility] Laboratory - Microbiology an d Antimicrobial susceptibilityOrdered By: Dada Maynard on 06-10-2023 Bacteria identified Cx Nom (Bld) No growth in 5 days. [facility] MCHC Auto (RBC) [Mass/Vol]Or dered By: Dada Maynard on 06-10-2023 MCHC (RBC) [Mass/Vol] 34.2 g/dL 32-36 [facility] No Panel InformationOrdered By: Dada Maynard on 06-10-2023 Estimated Creatinine Clearance Calc 39.65 ml/min [facility] Estimated GFR (MDRD) Amer 79 mL/min >60 [facility] Comment on above: GFR Calc Estimated GFR (MDRD) Non-Af Amer 66 mL/min >60 [facility] Comment on above: Non- GFR Calc Platelets bldOrdered By: Aidan Maynard on 06-10-2023 Platelets (Bld) [#/Vol] 252 10*3/uL 150-450 [facility] Serum or plasma albumin stephie urement (mass/volume)Ordered By: Dada Maynard on 06-10-2023 Albumin [Mass/Vol] 3.5 g/dL 3.2-5.0 [facility] Serum or plasma albumin/glob ulin mass ratioOrdered By: Dada Maynard on 06-10-2023 Albumin/Globulin [Mass ratio] 0.8 {ratio} 0.9-2.4 [facility] Serum or plasma calcium stephie urement (mass/volume)Ordered By: Dada Maynard on 06-10-2023 Calcium [Mass/Vol] 9.1 mg/dL 8.5-10.1 [facility] Serum or plasma creatinine m easurement (mass/volume)Ordered By: Dada Maynard on 06-10-2023 Creatinine [Mass/Vol] 0.88 mg/dL 0.55-1.02 [facility] Comment on above: The validity of the calculated GFR & GFRAA in patients over 70 years has not been determined. Clinical correlation is essential. Serum or plasma urea nitroge n measurement (mass/volume)Ordered By: Dada Maynard on 10-29-2023 Urea nitrogen [Mass/Vol] 17 mg/dL 7-18 [facility] Thin prep Papanicolaou smear with manual screeningOrdered By: Dada Maynard on 06-10-2023 Thin prep Papanicolaou smear with manual screening 11 U/L 15-37 [facility] Thin prep Papanicolaou smear with manual screening 12 5-15 [facility] ANES POSTPROC EVALon 023 ANES POSTPROC EVAL HNO ID: [id number] Author: Sabino Nelson DO Service: Anesthesiology Author Type: Physician Type: Anesthesia Postprocedure Evaluation Filed: 06/06/2023 12:55 PM Note Text: POST ANESTHESIA EVALUATION NOTE : 1940 Procedure Summary Date: 06/06/23 Room / Location: [facility] Anesthesia Start: 1145 Anesthesia Stop: 1215 Procedure: EGD DIAGNOSTIC Diagnosis: 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 Post Anesthesia Patient Status Patient Evaluation: PACU. PACU/ICU Patient Condition: stable. Anticipated Disposition: phase 2 then home. Neurological Status: aware and responsive. Pulmonary Status: breathing comfortably on room air Airway Control: returned to baseline unsupported. Cardiovascular Status: stable. Pain Management: clinically adequate Postoperative Hydration: acceptable. Intraoperative Events: no significant anesthesia events Post Operative Nausea/Vomiting Status: no significant post operative nausea or vomiting Recommendation: continue current plan of care and further care per PACU/ICU/floor team. Anesthesia Observations No Documentation SIGNATURE: Sabino Nelson DO PATIENT NAME: Ana Ivory DATE: June 06, 2023 TIME: 12:55 PM CSN: [id number] [facility] ANES PRE-OPon 06-06-2023 ANES PRE-OP HNO ID: [id number] Author: Sabino Nelson DO Service: Anesthesiology Author Type: Physician Type: Anesthesia Preprocedure Evaluation Filed: 06/06/2023 11:26 AM Note Text: ANESTHESIOLOGY DAY OF SURGERY NOTE : 1940 Procedure Information Date/Time: 06/06/23 1300 Scheduled providers: Erik Underwood MD; Gael Landa APRN.SUPER[employer]OR [employer]; Sabino Nelson DO Procedure: EGD DIAGNOSTIC Location: [facility] Estimated body mass index is 26.52 kg/m? as calculated from the following: Height as of this encounter: 157.5 cm (5' 2). Weight as of this encounter: 65.8 kg (145 lb). Most recent hematocrit and potassium results: Hematocrit 40.8 01/26/2023 Potassium 4.0 01/26/2023 Relevant Problems CARDIO (+) HTN (hypertension) (+) Migraines GI (+) Gastroesophageal reflux disease with esophagitis NEURO-PSYCH (+) History of cerebral infarction (+) Migraines I - PHYSICAL EVALUATION AIRWAY Patient intubated: No. Tracheostomy tube not present Mallampati: II. TM distance: >3 FB. Neck ROM: full ROM without neurological symptoms. Mouth opening: adequate. Short neck: no. Thick neck: no DENTAL Dental findings: teeth intact. II - ANESTHESIA PLAN ASA Score: 3 Anesthetic Plan: MAC NPO Status: adequate Beta Chetan Monitoring Plan Monitoring plan: standard ASA. Post Procedure Analgesic Plan Postoperative analgesic plan: parenteral or oral opioids. Informed Consent Anesthetic risks, benefits, alternatives, personnel and consent discussed: yes. Patient / Responsible Alliance Party agrees to proceed: yes Patient / Surrogate agrees to blood products: Yes DNR status not reviewed with patient and/or family prior to surgery. Significant changes in the patient condition since the History and Physical, not otherwise documented in primary service progress note: no. Potential Anesthesia issues that may suggest increased risk of complications or contraindication to planned procedure: none. Vitals Value Taken Time BP 180/78 06/06/23 1058 Pulse 78 06/06/23 1058 Resp 18 06/06/23 1058 Temp 37.1 ?C (98.8 ?F) 06/06/23 1058 SpO2 94 % 06/06/23 1058 Outpatient Medications as of 06/06/2023 Medication Sig - atorvastatin (LIPITOR) 20 mg tablet - metoprolol succinate ER (TOPROL XL) 200 mg 24 hr tablet Take 1 tablet by mouth once daily. - LORazepam (ATIVAN) 1 mg tablet TAKE 1/2 TO 1 TABLET BY MOUTH EVERY DAY NEEDED FOR FOR ANXIETY - Acidophilus-Bif Animalis 10 billion cell cap Take 1 capsule by mouth once daily. - gabapentin (NEURONTIN) 300 mg capsule Take 1 capsule by mouth twice daily for 180 days. Morning and bedtime - JARDIANCE 25 mg tablet Take 25 mg by mouth once daily. - esomeprazole (NEXIUM) 40 mg capsule Take 1 capsule by mouth DAILY (6 AM). - rosuvastatin (CRESTOR) 10 mg tablet Take 1 tablet by mouth daily at bedtime. As directed - insulin glargine (LANTUS SOLOSTAR U-100 INSULIN) 100 unit/mL (3 mL) Inject 14 Units subcutaneously daily at bedtime. (Dr. Genny Munguia refills) - insulin aspart U-100 (NOVOLOG FLEXPEN U-100 INSULIN) 100 unit/mL (3 mL) Inject 25 Units subcutaneously daily with breakfast AND 25 Units daily with lunch AND 25 Units daily with dinner. Adjust as directed. (Dr. Genny Munguia refills) Also has SSI. - sertraline (ZOLOFT) 50 mg tablet Take 1 tablet by mouth once daily. - vibegron (GEMTESA) 75 mg tablet Take 75 mg by mouth once daily. - TOVIAZ 4 mg Tb24 extended release tablet Take 4 mg by mouth once daily. For 30 days - multivitamin-folic acid-biotin (MCNK-CMZA-ZTIJP, GI-HT-AXSKPQ,) 400-2,000 mcg tab Take by mouth. - collagen, bovine, 100 % powd Apply to affected area. - Cranberry-Vitamin C-Vitamin E (CRANBERRY PLUS VITAMIN C) 140-100 mg cap Patient takes Cranberry with Vitamin C capsule that contains 15,000 mg Cranberry and 100mg Vitamin C - Biotin 2,500 mcg cap Nurse reports patient taking 1500 mcg dose once daily (cannot find 1500mcg dose on menu) - vit C/E/Zn/coppr/lutein/zeaxan (PRESERVISION AREDS-2 ORAL) Take by mouth twice daily. - Cholecalciferol, Vitamin D3, 1,000 unit cap Take 2 capsules by mouth once daily. - multivitamins(DAILY MULTIVITAMIN TAB) Take one(1) tablet daily. - flash glucose scanning reader (FREESTYLE DONTRELL 2 READER) - flash glucose sensor (FREESTYLE DONTRELL 14 DAY SENSOR) kit - celecoxib (CELEBREX) 200 mg capsule Take 1 capsule by mouth once daily. Take with food - Insulin Rochelle, Disposable, (BD ULTRA-FINE FOZIA PEN NEEDLE) 32 gauge x 5/32 Use one needle for each dose, 4 times daily. Dx: Type 2 DM - Controlled E11.9 - furosemide (LASIX) 20 mg tablet Take 1 tablet by mouth once daily. As directed for leg swelling - VENTOLIN HFA 90 mcg/actuation inhaler INHALE 2 PUFFS BY MOUTH EVERY 6 HOURS NEEDED FOR SHORTNESS OF BREATH/WHEEZING - fexofenadine (LYIDA) 180 mg tablet Take 1 tablet by mouth once daily. As directed for allergies - CRANBERRY - Insulin Rochelle, Disposable, (more content not included)... [facility] EGD DIAGNOSTICon 06-06-[address] [facility] GLUCOSE, BLOOD (POC)on 06-06 Glucose [Mass/Vol] 234 mg/dL Abnormal 74 - 99 mg/dL [facility] Glucose [Mass/Vol] 275 mg/dL Abnormal 74 - 99 mg/dL [facility] HISTORY PHYSICALon HISTORY PHYSICAL HNO ID: [id number] Author: Erik Underwood MD Service: General Surgery Author Type: Physician Type: HANDP Filed: 06/06/2023 11:57 AM Note Text: HISTORY AND PHYSICAL Ana Ivory 1940 REFERRING PHYSICIAN: Clarence Berry APRN.SENIOR PATIENT ACCOUNT REPRESENTATIVE CHIEF COMPLAINT: Consult (EGD consultation.) HPI: The [...] esophagus C. difficile diarrhea 10/18/2011 Cataract 04/17/2013 [facility] [place], Dr. Dada Rodríguez. Mild cataract in L eye- no need for cataract surgery at this time. Continue to follow up the cataract. 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 At this time, we anticipate that [...] VATS left upper lobectomy TONSILLECTOMY PRIMARY/SECONDARY Tonsillectomy CURRENT MEDICATIONS Current Outpatient Medications Medication [...] 25 mg tablet Take 25 mg by m (more content not included)... [facility] SURGICAL PATHOLOGYon 023 CASE REPORT [facility] Comment on above: Order Comment: Speci men Type: TISSUE SPECIMEN Ordering Facility: [facility] Address: [address] [place] [id number] Result Comment: Surg ical Pathology Report Case: [id number] Authorizing Provider: Erik Underwood MD Collected: 06/06/2023 12:01 PM Ordering Location: [facility] Received: 06/06/2023 03:24 PM Pathologist: Katherin Rubio MD Specimens: A) - DUODENUM BIOPSY B) - ANTRUM (STOMACH) BIOPSY C) - ESOPHAGUS LOWER BIOPSY, Irregular Z-Line D) - ESOPHAGUS MID BIOPSY Performed By: #### S #### [facility] CLIA [id number] [address] DIAGNOSIS COMMENT Intraepithelial eosi nophils are not identified in the mid esophagus. Fungal forms are not identified. [facility] Comment on above: Order Comment: Speci men Type: TISSUE SPECIMEN Ordering Facility: [facility] Address: [address] [place] [address] Performed By: #### S #### [facility] CLIA [id number] [facility] FINAL DIAGNOSIS [facility] Comment on above: Order Comment: Speci men Type: TISSUE SPECIMEN Ordering Facility: [facility] Address: [address] [place] [address] Result Comment: A. D uodenum, biopsy: - Duodenal mucosa with no significant diagnostic alterations. B. Stomach, antrum, biopsy: - Chronic inactive gastritis. - No morphologic evidence of Helicobacter pylori organisms. C. Esophagus, lower, biopsy: - Squamous esophageal mucosa with basal zone hyperplasia and intraepithelial eosinophils (up to 3 eosinophils per high power field) consistent with reflux disease. - Inflamed gastric cardia-type mucosa with reactive epithelial changes. - No morphologic evidence of intestinal metaplasia or dysplasia. D. Esophagus, mid, biopsy: - Acute esophagitis. See comment. AEB/mm/06/08/2023 Performed By: #### S #### [facility] CLIA [id number] [address] FINAL PERFORMING LAB [facility] Comment on above: Order Comment: Speci men Type: TISSUE SPECIMEN Ordering Facility: [facility] Address: [address] [place] [address] Result Comment: Diag nostic interpretation performed at [facility], [address] [place] [address] CLIA# [id number] Systems Librarian: Sebastian Woodward M.D. Performed By: #### S #### [facility] CLIA [id number] [address] [place] [address] [place] GROSS DESCRIPTION [facility] Comment on above: Order Comment: Speci men Type: TISSUE SPECIMEN Ordering Facility: [facility] Address: [address] [place] [address] Result Comment: A. D UODENUM BIOPSY Received in formalin is one piece of warren, soft tissue measuring 0.4 x 0.3 x 0.2 cm. Totally submitted in one cassette. B. ANTRUM (STOMACH) BIOPSY Received in formalin is one piece of warren, soft tissue measuring 0.4 x 0.3 x 0.2 cm. Totally submitted in one cassette. C. ESOPHAGUS LOWER BIOPSY Received in formalin are multiple pieces of warren, soft tissue aggregating to 0.5 x 0.3 x 0.2 cm. Totally submitted in one cassette. D. ESOPHAGUS MID BIOPSY Received in formalin is one piece of warren, soft tissue measuring 0.5 x 0.3 x 0.1 cm. Totally submitted in one cassette. Gross examination performed at [facility], [address] [place] [address] June 06, 2023 8:11 PM Performed By: #### S #### [facility] CLIA [id number] [address] [place] [address] [place] Upper GI endoscopy 10-25-2 023 Upper GI endoscopy [facility] Gastrointestinal Endoscopy Patient Name: Ana Ivory Procedure Date: 06/06/2023 11:33 AM Date of : 1940 Admit Type: Outpatient Age: 83 Room: [facility] Gender: Female Note Status: Finalized Attending MD: Erik Underwood MD Procedure: Upper GI endoscopy Indications: Dysphagia, Follow-up of Gonzales's esophagus Providers: Erik Underwood MD Patient Profile: This is an 83 year old female. Refer to note in patient chart for documentation of history and physical. Referring Physician: Radha Balderrama MD (Referring MD) Medicines: See the Anesthesia note for documentation of the administered medications Complications: No immediate complications. Estimated blood loss: Minimal. Requesting Provider: Procedure: Pre-Anesthesia Assessment: - Prior to the procedure, a History and Physical was performed, and patient medications and allergies were reviewed. The patient's tolerance of previous anesthesia was also reviewed. The risks and benefits of the procedure and the sedation options and risks were discussed with the patient. All questions were answered, and informed consent was obtained. Prior Anticoagulants: The patient has taken no anticoagulant or antiplatelet agents except for aspirin. ASA Grade Assessment: III - A patient with severe systemic disease. After reviewing the risks and benefits, the patient was deemed in satisfactory condition to undergo the procedure. After obtaining informed consent, the endoscope was passed under direct vision. Throughout the procedure, the patient's blood pressure, pulse, and oxygen saturations were monitored continuously. The Endoscope was introduced through the mouth, and advanced to the second part of duodenum. The upper GI endoscopy was accomplished without difficulty. The patient tolerated the procedure well. Moderate Sedation: Moderate (conscious) sedation was personally administered by an anesthesia professional. The following parameters were monitored: oxygen saturation, heart rate, blood pressure, respiratory rate, EKG, adequacy of pulmonary ventilation, and response to care. MAC anesthesia was administered by the anesthesia team. Total Procedure Duration: 0 hours 5 minutes 6 seconds Findings: There were esophageal mucosal changes suspicious for short-segment Gonzales's esophagus present at the gastroesophageal junction. The maximum longitudinal extent of these mucosal changes was 1 cm in length. Biopsies were taken with a cold forceps for histology. The entire examined stomach was normal. Biopsies were taken with a cold forceps for Helicobacter pylori testing. The examined duodenum was normal. Biopsies for histology were taken with a cold forceps for evaluation of celiac disease. Impression: - Esophageal mucosal changes suspicious for short-segment Gonzales's esophagus. Biopsied. - Normal stomach. Biopsied. - Normal examined duodenum. Biopsied. Recommendation: - Patient has a contact number available for emergencies. The signs and symptoms of potential delayed complications were discussed with the patient. Return to normal activities tomorrow. Written discharge instructions were provided to the patient. - Resume previous diet. - Continue present medications. - Await pathology results. - Repeat upper endoscopy in 2 years for surveillance. - Return to physician assistant front end manager in 1 week. - Perform an esophagram at appointment to be scheduled. Procedure Code(s): --- Professional --- 22879, Esophagogastroduodenoscopy, flexible, transoral; with biopsy, single or multiple Diagnosis Code(s): --- Professional --- K22.70, 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 R13.10, Dysphagia, unspecified CPT copyright 2020 [employer]. All rights reserved. The codes documented in this report are preliminary and upon dry cell tester review may be revised to meet current compliance requirements. Attending Participation: I personally performed the entire procedure. Scope In: 12:00:10 PM Scope Out: 12:05:16 PM MD Erik Durham MD 06/06/2023 12:11:48 PM This report has been signed electronically by Erik Underwood MD Number of Addenda: 0 Note Initiated On: 06/06/2023 11:33 AM Estimated Blood Loss: Estimated blood loss was minimal. Normal [facility] - Hematology and Cell countson 03-05-2023 HbA1c (Bld) [Mass fraction] 7.4 % 4.2-6.3 [facility] XR Foot - right AP and Later al and obliqueon 01-01-2023 IMPRESSION: Nondisplaced fracture of the base of the distal phalanx of the right first toe Steel Fabricating Supervisor: ABHILASH Transcribe Date/Time: Jan 01 2023 3:11P Dictated by : CAMERON ZAMARRIPA MD This examination was interpreted and the report reviewed and electronically signed by: CAMERON ZAMARRIPA MD on Jan 01 2023 3:13PM [facility] DIVISION OF RADIOLOGY * * *Final Report* * * DATE OF EXAM: Jan 01 2023 11:47AM WOX [id number] - XR FOOT 3V AP/LAT/OBL RT / PROCEDURE REASON: Foot pain, right * * * * Physician Interpretation * * * * EXAMINATION: XR FOOT 3V AP/LAT/OBL RT CLINICAL HISTORY: Right foot pain Technique: XR FOOT 3V AP/LAT/OBL RT -- RIGHT with 3 views on 3 images Comparison: None RESULT: Nondisplaced fracture of the base of the distal phalanx of the right first toe. No dislocation. Joint spaces are maintained. DIVISION OF RADIOLOGY Provider, Malou Spicer [facility] - 01/01/2023 * * *Final Report* * * DATE OF EXAM: Jan 01 2023 11:47AM WOX 5337 - XR FOOT 3V AP/LAT/OBL RT / PROCEDURE REASON: Foot pain, right * * * * Physician Interpretation * * * * EXAMINATION: XR FOOT 3V AP/LAT/OBL RT CLINICAL HISTORY: Right foot pain Technique: XR FOOT 3V AP/LAT/OBL RT -- RIGHT with 3 views on 3 images Comparison: None RESULT: Nondisplaced fracture of the base of the distal phalanx of the right first toe. No dislocation. Joint spaces are maintained. IMPRESSION IMPRESSION: Nondisplaced fracture of the base of the distal phalanx of the right first toe [employer] Fab[employer]ating Supervisor: ABHILASH Transcribe Date/Time: Jan 01 2023 3:11P Dictated by : CAMERON ZAMARRIPA MD This examination was interpreted and the report reviewed and electronically signed by: CAMERON ZAMARRIPA MD on Jan 01 2023 3:13PM EST [facility] Radiology Study observation (narrative) [facility] XR Foot - right AP and Later al and obliqueOrdered By: Ccf Provider on 01-01-[address] [facility] No Panel Informationon 10-[address] [facility] CBC panel Auto (Bld)on 08-02 Erythrocyte distribution width (RBC) [Ratio] 13.7 % 11.5 - 15.0 % [facility] Hematocrit (Bld) [Volume fraction] 37.8 % 36.0 - 46.0 % [facility] Hemoglobin (Bld) [Mass/Vol] 12.9 g/dL 11.5 - 15.5 g/dL [facility] MCH (RBC) [Entitic mass] 31.2 pg 26.0 - 34.[address] [facility] MCHC (RBC) [Mass/Vol] 34.1 g/dL 30.5 - 36.0 g/dL [facility] MCV (RBC) [Entitic vol] 91.5 fL 80.0 - 100.[address] [facility] Nucleated RBC (Bld) [#/Vol] <0.01 k/uL [facility] Platelet mean volume (Bld) [Entitic vol] 9.8 fL 9.0 - 12.[address] [facility] Platelets (Bld) [#/Vol] 230 10*3/uL 150 - 400 k/uL [facility] RBC (Bld) [#/Vol] 4.13 10*6/uL 3.90 - 5.20 m/uL [facility] WBC (Bld) [#/Vol] 7.40 10*3/uL 3.70 - 11.00 k/uL [facility] Comprehensive metabolic 2000 panelon 08-02-2022 Albumin [Mass/Vol] 4.3 g/dL 3.9 - 4.9 g/dL [facility] ALP [Catalytic activity/Vol] 94 U/L 34 - 123 U/L [facility] ALT [Catalytic activity/Vol] 17 U/L 7 - 38 U/L [facility] Anion gap [Moles/Vol] 12 mmol/L 9 - 18 mmol/L [facility] AST [Catalytic activity/Vol] 19 U/L 13 - 35 U/L [facility] Bilirubin [Mass/Vol] 0.4 mg/dL 0.2 - 1 .3 mg/dL [facility] Calcium [Mass/Vol] 8.8 mg/dL 8.5 - 10. 2 mg/dL [facility] Chloride [Moles/Vol] 104 mmol/L 97 - 10 5 mmol/L [facility] CO2 [Moles/Vol] 26 mmol/L 22 - 30 mmol/L [facility] Creatinine [Mass/Vol] 0.69 mg/dL 0.58 - 0.96 mg/dL [facility] Estimated Glomerular Filtration Rate 88 mL/min/1.73m >=60 mL/min/1.[address] [facility] Glucose [Mass/Vol] 232 mg/dL High 74 - 99 mg/dL [facility] Potassium [Moles/Vol] 4.1 mmol/L 3.7 - 5.1 mmol/L [facility] Protein [Mass/Vol] 6.8 g/dL 6.3 - 8.0 g/dL [facility] Sodium [Moles/Vol] 142 mmol/L 136 - 144 mmol/L [facility] Urea nitrogen [Mass/Vol] 17 mg/dL 7 - 21 mg/dL [facility] Laboratory - Hematology and Cell countson 05-26-2022 HbA1c (Bld) [Mass fraction] 7.5 % 4.2-6.3 [facility] No Panel Informationon 04-[address] [facility] XR ANKLE GENERAL 3V AP/LAT/O BL RIGHTon 01-30-[address] [facility] XR Ankle - right AP and Late ral and obliqueon 01-30-2022 IMPRESSION: No acute osseous abnormality identified. [employer] Supervisor: ABHILASH Transcribe Date/Time: Jan 30 2022 12:55P Dictated by : LORENA KUMAR MD This examination was interpreted and the report reviewed and electronically signed by: LORENA KUMAR MD on Jan 30 2022 12:56PM EST ZZZ_DO_NOT _USE_DIVIS ION OF RADIOLOGY * * *Final Report* * * DATE OF EXAM: Jan 30 2022 12:50PM WOX 5297 - XR ANKLE 3V AP/LAT/OBL RT / PROCEDURE REASON: Ankle injury, initial encounter * * * * Physician Interpretation * * * * Right ankle radiographs HISTORY: 81 years old Clinical information: Ankle injury, initial encounter pt twisted right ankle yesterday afternoon TECHNIQUE: Images: XR ANKLE 3V AP/LAT/OBL RT Comparison: None. RESULT: Findings: Ankle mortise is congruent. No fracture or dislocation. Enthesophyte at the Achilles insertion site on the calcaneus. Mild soft tissue swelling of the ankle. ZZZ_DO_NOT _USE_DIVIS ION OF RADIOLOGY Provider, [facility] - 01/30/2022 * * *Final Report* * * DATE OF EXAM: Jan 30 2022 12:50PM WOX 5297 - XR ANKLE 3V AP/LAT/OBL RT / PROCEDURE REASON: Ankle injury, initial encounter * * * * Physician Interpretation * * * * Right ankle radiographs HISTORY: 81 years old Clinical information: Ankle injury, initial encounter pt twisted right ankle yesterday afternoon TECHNIQUE: Images: XR ANKLE 3V AP/LAT/OBL RT Comparison: None. RESULT: Findings: Ankle mortise is congruent. No fracture or dislocation. Enthesophyte at the Achilles insertion site on the calcaneus. Mild soft tissue swelling of the ankle. IMPRESSION IMPRESSION: No acute osseous abnormality identified. [employer] Fab[employer] Supervisor: ABHILASH Transcribe Date/Time: Jan 30 2022 12:55P Dictated by : LORENA KUMAR MD This examination was interpreted and the report reviewed and electronically signed by: LORENA KUMAR MD on Jan 30 2022 12:56PM EST [facility] Radiology Study observation (narrative) Geraldine mejia [facility] XR Ankle - right AP and Late ral and obliqueOrdered By: Ccf Provider on 01-30-[address] [facility] EGD - THERAPEUTIC, EUS, OR T UBE INTERVENTIONSon 12-21-[address] [facility] GLUCOSE, BLOOD (POC)on 12-21 Glucose [Mass/Vol] 261 mg/dL Abnormal 74 - 99 mg/dL [facility] Glucose [Mass/Vol] 248 mg/dL Abnormal 74 - 99 mg/dL [facility] XR Chest PA and Lateralon IMPRESSION: No acute radiographic abnormality. [employer] Fab[employer] Supervisor: ABHILASH Transcribe Date/Time: Jun 03 2021 1:12P Dictated by : CAMERON ZAMARRIPA MD This examination was interpreted and the report reviewed and electronically signed by: CAMERON ZAMARRIPA MD on Jun 03 2021 1:16PM [facility] DIVISION OF RADIOLOGY * * *Final Report* * * DATE OF EXAM: Jun 03 2021 1:04PM WOX [id number] - XR CHEST 2V FRONTAL/LAT / PROCEDURE REASON: Suspected 2019 novel coronavirus infection * * * * Physician Interpretation * * * * EXAMINATION: CHEST RADIOGRAPH (2 VIEW FRONTAL & LATERAL) CLINICAL HISTORY: Suspected 2019 novel coronavirus infection MQ: XC2_6 EXAM DATE/TIME: 06/03/2021 1:04 PM COMPARISON: Chest x-ray 07/12/2017 RESULT: Lines, tubes, and devices: None. Lungs and pleura: No consolidation. No lung mass. No pleural effusion. No pneumothorax. Cardiomediastinal silhouette: Normal cardiomediastinal silhouette. Bones and soft tissues: Degenerative disease of the thoracic spine. DIVISION OF RADIOLOGY Provider, [facility] - 06/03/2021 * * *Final Report* * * DATE OF EXAM: Jun 03 2021 1:04PM WOX 5291 - XR CHEST 2V FRONTAL/LAT / PROCEDURE REASON: Suspected 2019 novel coronavirus infection * * * * Physician Interpretation * * * * EXAMINATION: CHEST RADIOGRAPH (2 VIEW FRONTAL & LATERAL) CLINICAL HISTORY: Suspected 2019 novel coronavirus infection MQ: XC2_6 EXAM DATE/TIME: 06/03/2021 1:04 PM COMPARISON: Chest x-ray 07/12/2017 RESULT: Lines, tubes, and devices: None. Lungs and pleura: No consolidation. No lung mass. No pleural effusion. No pneumothorax. Cardiomediastinal silhouette: Normal cardiomediastinal silhouette. Bones and soft tissues: Degenerative disease of the thoracic spine. IMPRESSION IMPRESSION: No acute radiographic abnormality. 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 Vital Signs Date Time Vital Sign Value Performing Clinician Facility 07-15-2024 13:16-0500 Diastolic blood pressure 68 mm[Hg] Alicia Blount MD Work Phone: [facility] 07-15-2024 13:16-0500 Systolic blood pressure 132 mm[Hg] Alicia Blount MD Work Phone: [facility] 07-15-2024 12:13-0500 Body mass index (BMI) [Ratio] 28.87 kg/m2 Alicia Blount MD Work Phone: [facility] 07-15-2024 12:13-0500 Body temperature 97.81 [degF] Alicia Blount MD Work Phone: [facility] 07-15-2024 12:13-0500 Body weight 71.6 kg Alicia Blount MD Work Phone: [facility] 07-15-2024 12:13-0500 Heart rate 82 /min Alicia Blount MD Work Phone: [facility] 07-15-2024 12:13-0500 Respiratory rate 16 /min Alicia Blount MD Work Phone: [facility] 07-15-2024 12:13-0500 SaO2% (BldA) [Mass fraction] 97 % Alicia Blount MD Work Phone: [facility] 05-27-2024 11:04-0400 Body mass index (BMI) [Ratio] 29.92 kg/m2 Alicia Blount MD Work Phone: [facility] 05-27-2024 11:04-0400 Body temperature 97.59 [degF] Alicia Blount MD Work Phone: [facility] 05-27-2024 11:04-0400 Body weight 74.2 kg Alicia Blount MD Work Phone: [facility] 05-27-2024 11:04-0400 Diastolic blood pressure 68 mm[Hg] Alicia Blount MD Work Phone: [facility] 05-27-2024 11:04-0400 Heart rate 83 /min Alicia Blount MD Work Phone: [facility] 05-27-2024 11:04-0400 Respiratory rate 16 /min Alicia Blount MD Work Phone: [facility] 05-27-2024 11:04-0400 SaO2% (BldA) [Mass fraction] 97 % Alicia Blount MD Work Phone: [facility] 05-27-2024 11:04-0400 Systolic blood pressure 128 mm[Hg] Alicia Blount MD Work Phone: [facility] 02-17-2024 13:09-0400 Body mass index (BMI) [Ratio] 28.35 kg/m2 Antoinette Agrawal APRN.[employer] Work Phone: [facility] 02-17-2024 13:09-0400 Body temperature 98.01 [degF] Antoinette Agrawal APRN.[employer] Work Phone: [facility] 02-17-2024 13:09-0400 Body weight 70.3 kg Antoinette Agrawal APRN.[employer] Work Phone: [facility] 02-17-2024 13:09-0400 Diastolic blood pressure 72 mm[Hg] Antoinette Agrawal COMMERCIAL ACCOUNT EXECUTIVE.[employer]EEPER [employer] Work Phone: [facility] 02-17-2024 13:09-0400 Heart rate 99 /min Antoinette Agrawal APRN.[employer] Work Phone: [facility] 02-17-2024 13:09-0400 Respiratory rate 20 /min Antoinette Agrawal APRN.[employer] Work Phone: [facility] 02-17-2024 13:09-0400 SaO2% (BldA) [Mass fraction] 99 % Antoinette Agrawal APRN.[employer] Work Phone: [facility] 02-17-2024 13:09-0400 Systolic blood pressure 120 mm[Hg] Antoinette Agrawal COMMERCIAL ACCOUNT EXECUTIVE.GREENSKEEPER [employer] Work Phone: [facility] 02-12-2024 10:43-0400 Body mass index (BMI) [Ratio] 29.15 kg/m2 Martin Munguia APRN.[employer] Work Phone: [facility] 02-12-2024 10:43-0400 Body temperature 97.3 [degF] Martin Munguia APRN.[employer] Work Phone: [facility] 02-12-2024 10:43-0400 Body weight 72.3 kg Martin Munguia APRN.[employer] Work Phone: [facility] 02-12-2024 10:43-0400 Diastolic blood pressure 80 mm[Hg] Martin Munguia APRN.GRE[employer]SK[employer]PER [employer] Work Phone: [facility] 02-12-2024 10:43-0400 Heart rate 82 /min Martin Munguia APRN.[employer] Work Phone: [facility] 02-12-2024 10:43-0400 Respiratory rate 18 /min Martin Munguia APRN.[employer] Work Phone: [facility] 02-12-2024 10:43-0400 SaO2% (BldA) [Mass fraction] 96 % Martin Ezra COMMERCIAL ACCOUNT EXECUTIVE.[employer] Work Phone: [facility] 02-12-2024 10:43-0400 Systolic blood pressure 132 mm[Hg] Martin COMMERCIAL ACCOUNT EXECUTIVE.GREENSKEEPER [employer] Work Phone: [facility] 01-31-2024 10:10-0400 Diastolic blood pressure 82 mm[Hg] Clarence Berry COMMERCIAL ACCOUNT EXECUTIVE.SENIOR PATIENT ACCOUNT REPRESENTATIVE Work Phone: [facility] Comment on above: bp average 01-31-2024 10:10-0400 Heart rate 84 /min Clarence Berry COMMERCIAL ACCOUNT EXECUTIVE.SENIOR PATIENT ACCOUNT REPRESENTATIVE Work Phone: [facility] 01-31-2024 10:10-0400 Systolic blood pressure 148 mm[Hg] Clarence Berry COMMERCIAL ACCOUNT EXECUTIVE.SENIOR PATIENT ACCOUNT REPRESENTATIVE Work Phone: [facility] Comment on above: bp average 01-31-2024 10:09-0400 Body mass index (BMI) [Ratio] 28.9 kg/m2 Clarence Berry COMMERCIAL ACCOUNT EXECUTIVE.SENIOR PATIENT ACCOUNT REPRESENTATIVE Work Phone: [facility] 01-31-2024 10:09-0400 Body weight 71.67 kg Clarence Berry COMMERCIAL ACCOUNT EXECUTIVE.SENIOR PATIENT ACCOUNT REPRESENTATIVE Work Phone: [facility] 01-31-2024 10:09-0400 Respiratory rate 16 /min Clarence Mcgregors COMMERCIAL ACCOUNT EXECUTIVE.SENIOR PATIENT ACCOUNT REPRESENTATIVE Work Phone: [facility] 12-09-2023 10:38-0400 Body mass index (BMI) [Ratio] 28.63 kg/m2 Antoinette Agrawal APRN.[employer] Work Phone: [facility] 12-09-2023 10:38-0400 Body temperature 97.9 [degF] Antoinette Agrawal COMMERCIAL ACCOUNT EXECUTIVE.GRE[employer]EEPER [employer] Work Phone: [facility] 12-09-2023 10:38-0400 Body weight 71 kg Antoinette Agrawal APRN.[employer]PER [employer] Work Phone: [facility] 12-09-2023 10:38-0400 Diastolic blood pressure 74 mm[Hg] Antoinette Agrawal COMMERCIAL ACCOUNT EXECUTIVE.[employer]SKEEPER [employer] Work Phone: [facility] 12-09-2023 10:38-0400 Heart rate 92 /min Antoinette Agrawal APRN.[employer] Work Phone: [facility] 12-09-2023 10:38-0400 Respiratory rate 18 /min Antoinette Agrawal APRN.[employer] Work Phone: [facility] 12-09-2023 10:38-0400 SaO2% (BldA) [Mass fraction] 96 % Antoinette Agrawal APRN.[employer] Work Phone: [facility] 12-09-2023 10:38-0400 Systolic blood pressure 126 mm[Hg] Antoinette Agrawal APRN.[employer]PER [employer] Work Phone: [facility] 10-01-2023 11:13-0500 Body height 157.5 cm Alicia Blount MD Work Phone: [facility] 10-01-2023 11:13-0500 Body weight 67.13 kg Alicia Blount MD Work Phone: [facility] 10-01-2023 11:13-0500 Diastolic blood pressure 80 mm[Hg] Alicia Blount MD Work Phone: [facility] 10-01-2023 11:13-0500 Heart rate 74 /min Alicia Blount MD Work Phone: [facility] 10-01-2023 11:13-0500 Respiratory rate 16 /min Alicia Blount MD Work Phone: [facility] 10-01-2023 11:13-0500 Systolic blood pressure 128 mm[Hg] Alicia Blount MD Work Phone: [facility] 07-31-2023 10:34-0500 Body height 157.[address] Alicia Blount Work Phone: [facility] 07-31-2023 10:34-0500 Body mass index (BMI) [Ratio] 25.7 kg/m2 Dr. Alicia Blount Work Phone: [facility] 07-31-2023 10:34-0500 Body temperature 98.7 [degF] Dr. Alicia Blount Work Phone: 3(711)217-556076 [place] [address] 07-31-2023 10:34-0500 Body weight 63.[address] Alicia Blount Work Phone: 1(155)426-886919 [place] [address] 07-31-2023 10:34-0500 Diastolic blood pressure 66 mm[Hg] Dr. Alicia Blount Work Phone: 3(875)582-519019 [place] [address] 07-31-2023 10:34-0500 Heart rate 72 /min Dr. Alicia Blount Work Phone: 1(175)695-479519 [place] [address] 07-31-2023 10:34-0500 Respiratory rate 16 /min Dr. Alicia Blount Work Phone: 8(902)341-874319 [place] [address] 07-31-2023 10:34-0500 SaO2% (BldA) [Mass fraction] 96 % Dr. Alicia Blount Work Phone: 8(431)997-061319 [place] [address] 07-31-2023 10:34-0500 Systolic blood pressure 136 mm[Hg] Dr. Alicia Blount Work Phone: 2(662)391-135019 [place] [address] 07-19-2023 14:02-0500 Body mass index (BMI) [Ratio] 25.9 kg/m2 Dr. Alicia Blount Work Phone: 2(019)574-506919 [place] [address] 07-19-2023 14:02-0500 Body weight 64.[address] Alicia Blount Work Phone: 8(661)029-451319 [place] [address] 07-16-2023 13:49-0500 Body temperature 97.5 [degF] Dr. Alicia Blount Work Phone: 4(513)933-723119 [place] [address] 07-16-2023 13:49-0500 Diastolic blood pressure 76 mm[Hg] Dr. Alicia Blount Work Phone: 0(150)546-211719 [place] [address] 07-16-2023 13:49-0500 Heart rate 65 /min Dr. Alicia Blount Work Phone: 8(731)944-486619 [place] [address] 07-16-2023 13:49-0500 Respiratory rate 15 /min Dr. Alicia Blount Work Phone: [facility] 07-16-2023 13:49-0500 SaO2% (BldA) [Mass fraction] 99 % Dr. Alicia Blount Work Phone: [facility] 07-16-2023 13:49-0500 Systolic blood pressure 116 mm[Hg] Dr. Alicia Blount Work Phone: [facility] 07-02-2023 14:57-0500 Body weight 65.32 kg Clarence Berry COMMERCIAL ACCOUNT EXECUTIVE.SENIOR PATIENT ACCOUNT REPRESENTATIVE Work Phone: [facility] 07-02-2023 14:57-0500 Diastolic blood pressure 78 mm[Hg] Clarence Berry COMMERCIAL ACCOUNT EXECUTIVE.SENIOR PATIENT ACCOUNT REPRESENTATIVE Work Phone: [facility] 07-02-2023 14:57-0500 Heart rate 75 /min Clarence Berry COMMERCIAL ACCOUNT EXECUTIVE.SENIOR PATIENT ACCOUNT REPRESENTATIVE Work Phone: [facility] 07-02-2023 14:57-0500 Respiratory rate 16 /min Clarence Berry COMMERCIAL ACCOUNT EXECUTIVE.SENIOR PATIENT ACCOUNT REPRESENTATIVE Work Phone: [facility] 07-02-2023 14:57-0500 Systolic blood pressure 139 mm[Hg] Clarence Berry COMMERCIAL ACCOUNT EXECUTIVE.SENIOR PATIENT ACCOUNT REPRESENTATIVE Work Phone: [facility] 06-26-2023 11:41-0500 Body temperature 97.6 [degF] Dr. Alicia Blount Work Phone: [facility] 06-26-2023 11:41-0500 Diastolic blood pressure 68 mm[Hg] Dr. Alicia Blount Work Phone: [facility] 06-26-2023 11:41-0500 Heart rate 86 /min Dr. Alicia Blount Work Phone: [facility] 06-26-2023 11:41-0500 Respiratory rate 18 /min Dr. Alicia Blount Work Phone: [facility] 06-26-2023 11:41-0500 SaO2% (BldA) [Mass fraction] 95 % Dr. Alicia Blount Work Phone: 0(348)673-419019 [place] [address] 06-26-2023 11:41-0500 Systolic blood pressure 136 mm[Hg] Dr. Alicia Blount Work Phone: 7(744)933-285419 [place] [address] 06-20-2023 11:36-0500 Body weight 64.[address] Alicia Blount Work Phone: 2(963)912-037919 [place] [address] 06-19-2023 12:49-0500 Body temperature 96.9 [degF] Dr. Alicia Blount Work Phone: 8(796)642-741419 [place] [address] 06-19-2023 12:49-0500 Diastolic blood pressure 68 mm[Hg] Dr. Alicia Blount Work Phone: 3(641)705-976219 [place] [address] 06-19-2023 12:49-0500 Heart rate 82 /min Dr. Alicia Blount Work Phone: 0(813)346-179719 [place] [address] 06-19-2023 12:49-0500 Respiratory rate 17 /min Dr. Alicia Blount Work Phone: 4(635)191-815119 [place] [address] 06-19-2023 12:49-0500 SaO2% (BldA) [Mass fraction] 99 % Dr. Alicia Blount Work Phone: 7(836)213-795519 [place] [address] 06-19-2023 12:49-0500 Systolic blood pressure 122 mm[Hg] Dr. Alicia Blount Work Phone: 2(086)273-930719 [place] [address] 06-19-2023 10:19-0500 Body mass index (BMI) [Ratio] 26.2 kg/m2 Dr. Alicia Blount Work Phone: 1(842)119-021719 [place] [address] 06-19-2023 10:19-0500 Body weight 64.[address] Alicia Blount Work Phone: 7(275)443-177219 [place] [address] 06-18-2023 10:00-0500 Heart rate 72 /min Dr. Alicia Blount Work Phone: 0(973)144-422419 [place] [address] 06-17-2023 14:58-0500 Body temperature 97.3 [degF] Dr. Alicia Blount Work Phone: 4(140)130-369719 [place] [address] 06-17-2023 14:58-0500 Diastolic blood pressure 58 mm[Hg] Dr. Alicia Blount Work Phone: 8(784)705-530619 [place] [address] 06-17-2023 14:58-0500 Respiratory rate 16 /min Dr. Alicia Blount Work Phone: 0(033)973-135219 [place] [address] 06-17-2023 14:58-0500 SaO2% (BldA) [Mass fraction] 96 % Dr. Alicia Blount Work Phone: 0(621)899-680219 [place] [address] 06-17-2023 14:58-0500 Systolic blood pressure 127 mm[Hg] Dr. Alicia Blount Work Phone: 3(078)242-938019 [place] [address] 06-15-2023 14:33-0400 Body height 157.[address] Alicia Blount Work Phone: 7(663)319-005719 [place] [address] 06-15-2023 14:33-0400 Body weight 66.[address] Alicia Blount Work Phone: 9(645)538-461719 [place] [address] 06-13-2023 14:58-0400 Body mass index (BMI) [Ratio] 26.9 kg/m2 Dr. Alicia Blount Work Phone: 9(826)691-554219 [place] [address] 06-13-2023 12:00-0400 Body temperature 98.2 [degF] Dr. Alicia Blount Work Phone: 0(460)123-832719 [place] [address] 06-13-2023 12:00-0400 Diastolic blood pressure 75 mm[Hg] Dr. Alicia Blount Work Phone: 2(307)251-292619 [place] [address] 06-13-2023 12:00-0400 Heart rate 92 /min Dr. Alicia Blount Work Phone: 4(592)627-922419 [place] [address] 06-13-2023 12:00-0400 Respiratory rate 18 /min Dr. Alicia Blount Work Phone: 1(930)684-712219 [place] [address] 06-13-2023 12:00-0400 SaO2% (BldA) [Mass fraction] 100 % Dr. Alicia Blount Work Phone: 7(767)073-934576 [place] [address] 06-13-2023 12:00-0400 Systolic blood pressure 131 mm[Hg] Dr. Alicia Blount Work Phone: 7(211)083-063019 [place] [address] 06-11-2023 10:50-0400 Body weight 65.[address] Alicia Blount Work Phone: 1(816)714-140819 [place] [address] 06-10-2023 21:53-0400 Body mass index (BMI) [Ratio] 26.4 kg/m2 Dr. Alicia Blount Work Phone: 7(750)493-557119 [place] [address] 06-10-2023 19:49-0400 Body temperature 98.4 [degF] Dr. Alicia Blount Work Phone: 9(947)359-376819 [place] [address] 06-10-2023 19:49-0400 Diastolic blood pressure 61 mm[Hg] Dr. Alicia Blount Work Phone: 4(163)073-353019 [place] [address] 06-10-2023 19:49-0400 Heart rate 104 /min Dr. Alicia Blount Work Phone: 2(483)967-384619 [place] [address] 06-10-2023 19:49-0400 Respiratory rate 19 /min Dr. Alicia Blount Work Phone: 9(175)777-889819 [place] [address] 06-10-2023 19:49-0400 SaO2% (BldA) [Mass fraction] 95 % Dr. Alicia Blount Work Phone: 1(488)825-874719 [place] [address] 06-10-2023 19:49-0400 Systolic blood pressure 126 mm[Hg] Dr. Alicia Blount Work Phone: 5(049)565-909876 [place] [address] 06-10-2023 16:59-0400 Body height 157.[address] Alicia Blount Work Phone: 0(457)432-904519 [place] [address] 06-10-2023 16:59-0400 Body mass index (BMI) [Ratio] 27.1 kg/m2 Dr. Alicia Blount Work Phone: [facility] 06-10-2023 16:59-0400 Body weight 67.[address] Alicia Blount Work Phone: 5(173)201-166776 [place] [address] 06-07-2023 13:28-0400 Body mass index (BMI) [Ratio] 26.1 kg/m2 Dr. Alicia Blount Work Phone: 4(094)284-978076 [place] [address] 06-07-2023 13:28-0400 Body temperature 97.8 [degF] Dr. Alicia Blount Work Phone: 2(827)693-658319 [place] [address] 06-07-2023 13:28-0400 Body weight 64.[address] Alicia Blount Work Phone: 8(570)773-347019 [place] [address] 06-07-2023 13:28-0400 Diastolic blood pressure 80 mm[Hg] Dr. Alicia Blount Work Phone: 5(088)279-917676 [place] [address] 06-07-2023 13:28-0400 Heart rate 87 /min Dr. Alicia Blount Work Phone: 1(872)533-643576 [place] [address] 06-07-2023 13:28-0400 Respiratory rate 17 /min Dr. Alicia Blount Work Phone: 3(426)372-639776 [place] [address] 06-07-2023 13:28-0400 SaO2% (BldA) [Mass fraction] 95 % Dr. Alicia Blount Work Phone: 4(067)382-646476 [place] [address] 06-07-2023 13:28-0400 Systolic blood pressure 136 mm[Hg] Dr. Alicia Blount Work Phone: 8(760)024-369076 [place] [address] 06-06-2023 12:30-0400 Body temperature 98.2 [degF] Erik Underwood MD Work Phone: [facility] 06-06-2023 12:30-0400 Diastolic blood pressure 73 mm[Hg] Erik Underwood MD Work Phone: [facility] 06-06-2023 12:30-0400 Heart rate 74 /min Erik Underwood MD Work Phone: [facility] 06-06-2023 12:30-0400 Respiratory rate 15 /min Erik Underwood MD Work Phone: [facility] 06-06-2023 12:30-0400 SaO2% (BldA) [Mass fraction] 97 % Erik Underwood MD Work Phone: [facility] 06-06-2023 12:30-0400 Systolic blood pressure 156 mm[Hg] Erik Underwood MD Work Phone: [facility] 06-06-2023 10:58-0400 Body height 157.5 cm Erik Underwood MD Work Phone: [facility] 06-06-2023 10:58-0400 Body weight 65.77 kg Erik Underwood MD Work Phone: [facility] 06-04-2023 09:45-0400 Body height 157.5 cm Radha Balderrama MD Work Phone: [facility] 06-04-2023 09:45-0400 Body temperature 97.81 [degF] Radha Balderrama MD Work Phone: [facility] 06-04-2023 09:45-0400 Body weight 66.13 kg Radha Balderrama MD Work Phone: [facility] 06-04-2023 09:45-0400 Diastolic blood pressure 78 mm[Hg] Radha Balderrama MD Work Phone: [facility] 06-04-2023 09:45-0400 Heart rate 83 /min Radha Balderrama MD Work Phone: [facility] 06-04-2023 09:45-0400 SaO2% (BldA) [Mass fraction] 94 % Radha Balderrama MD Work Phone: [facility] 06-04-2023 09:45-0400 Systolic blood pressure 122 mm[Hg] Radha Balderrama MD Work Phone: [facility] 05-31-2023 09:52-0400 Body weight 65.77 kg Clarence Berry APRN.[facility] Work Phone: [facility] 05-31-2023 09:52-0400 Diastolic blood pressure 76 mm[Hg] Clarence Berry COMMERCIAL ACCOUNT EXECUTIVE.SENIOR PATIENT ACCOUNT REPRESENTATIVE Work Phone: [facility] 05-31-2023 09:52-0400 Heart rate 78 /min Clarence Berry COMMERCIAL ACCOUNT EXECUTIVE.SENIOR PATIENT ACCOUNT REPRESENTATIVE Work Phone: [facility] 05-31-2023 09:52-0400 Respiratory rate 16 /min Clarence Berry COMMERCIAL ACCOUNT EXECUTIVE.SENIOR PATIENT ACCOUNT REPRESENTATIVE Work Phone: [facility] 05-31-2023 09:52-0400 Systolic blood pressure 133 mm[Hg] Clarence Berry COMMERCIAL ACCOUNT EXECUTIVE.SENIOR PATIENT ACCOUNT REPRESENTATIVE Work Phone: [facility] 04-08-2023 12:38-0400 Body temperature 98.29 [degF] Navya Older COMMERCIAL ACCOUNT EXECUTIVE.[employer] Work Phone: [facility] 04-08-2023 12:38-0400 Body weight 66.59 kg Navya Older COMMERCIAL ACCOUNT EXECUTIVE.GREEN[employer]EEPER [employer] Work Phone: [facility] 04-08-2023 12:38-0400 Diastolic blood pressure 72 mm[Hg] Navya Older COMMERCIAL ACCOUNT EXECUTIVE.GREENSKEEPER HEAD Work Phone: [facility] 04-08-2023 12:38-0400 Heart rate 80 /min Navya Older COMMERCIAL ACCOUNT EXECUTIVE.GREENSKEEPER HEAD Work Phone: [facility] 04-08-2023 12:38-0400 Respiratory rate 22 /min Navya Older COMMERCIAL ACCOUNT EXECUTIVE.GREENSKEEPER HEAD Work Phone: [facility] 04-08-2023 12:38-0400 SaO2% (BldA) [Mass fraction] 98 % Navya Older COMMERCIAL ACCOUNT EXECUTIVE.GREENSKEEPER HEAD Work Phone: [facility] 04-08-2023 12:38-0400 Systolic blood pressure 138 mm[Hg] Navya Older COMMERCIAL ACCOUNT EXECUTIVE.[employer]ENSKEEPER HEAD Work Phone: [facility] 03-07-2023 07:56-0400 Body mass index (BMI) [Ratio] 26.3 kg/m2 Dr. Alicia Blount Work Phone: [facility] 03-07-2023 07:56-0400 Body temperature 97.8 [degF] Dr. Alicia Blount Work Phone: 9(439)261-542719 [place] [address] 03-07-2023 07:56-0400 Body weight 65.[address] Alicia Blount Work Phone: 8(603)097-588619 [place] [address] 03-07-2023 07:56-0400 Diastolic blood pressure 84 mm[Hg] Dr. Alicia Blount Work Phone: 7(181)146-153619 [place] [address] 03-07-2023 07:56-0400 Heart rate 80 /min Dr. Alicia Blount Work Phone: 9(845)927-944419 [place] [address] 03-07-2023 07:56-0400 Respiratory rate 18 /min Dr. Alicia Blount Work Phone: 1(090)408-072219 [place] [address] 03-07-2023 07:56-0400 SaO2% (BldA) [Mass fraction] 97 % Dr. Alicia Blount Work Phone: 1(292)441-771919 [place] [address] 03-07-2023 07:56-0400 Systolic blood pressure 136 mm[Hg] Dr. Alicia Blount Work Phone: 8(888)191-739419 [place] [address] 03-05-2023 10:08-0400 Body mass index (BMI) [Ratio] 27.4 kg/m2 Dr. Alicia Blount Work Phone: 2(405)261-108619 [place] [address] 03-05-2023 10:08-0400 Body temperature 98 [degF] Dr. Alicia Blount Work Phone: 5(949)930-983819 [place] [address] 03-05-2023 10:08-0400 Body weight 68.[address] Alicia Blount Work Phone: 9(195)792-230719 [place] [address] 03-05-2023 10:08-0400 Diastolic blood pressure 80 mm[Hg] Dr. Alicia Blount Work Phone: 9(879)917-898719 [place] [address] 03-05-2023 10:08-0400 Heart rate 70 /min Dr. Alicia Blount Work Phone: 6(526)253-310419 [place] [address] 03-05-2023 10:08-0400 Respiratory rate 16 /min Dr. Alicia Blount Work Phone: [facility] 03-05-2023 10:08-0400 SaO2% (BldA) [Mass fraction] 96 % Dr. Alicia Blount Work Phone: [facility] 03-05-2023 10:08-0400 Systolic blood pressure 146 mm[Hg] Dr. Alicia Blount Work Phone: [facility] 10-17-2022 15:05-0500 Body weight 71.67 kg Clarence Berry COMMERCIAL ACCOUNT EXECUTIVE.SENIOR PATIENT ACCOUNT REPRESENTATIVE Work Phone: [facility] 10-17-2022 15:05-0500 Diastolic blood pressure 80 mm[Hg] Clarence Berry COMMERCIAL ACCOUNT EXECUTIVE.SENIOR PATIENT ACCOUNT REPRESENTATIVE Work Phone: [facility] 10-17-2022 15:05-0500 Heart rate 68 /min Clarence Berry COMMERCIAL ACCOUNT EXECUTIVE.SENIOR PATIENT ACCOUNT REPRESENTATIVE Work Phone: [facility] 10-17-2022 15:05-0500 Respiratory rate 16 /min Clarence Berry COMMERCIAL ACCOUNT EXECUTIVE.SENIOR PATIENT ACCOUNT REPRESENTATIVE Work Phone: [facility] 10-17-2022 15:05-0500 SaO2% (BldA) [Mass fraction] 98 % Clarence Berry COMMERCIAL ACCOUNT EXECUTIVE.SENIOR PATIENT ACCOUNT REPRESENTATIVE Work Phone: [facility] 10-17-2022 15:05-0500 Systolic blood pressure 130 mm[Hg] Clarence Berry COMMERCIAL ACCOUNT EXECUTIVE.SENIOR PATIENT ACCOUNT REPRESENTATIVE Work Phone: [facility] 10-10-2022 10:10-0500 Body weight 71.67 kg Clarence Berry COMMERCIAL ACCOUNT EXECUTIVE.SENIOR PATIENT ACCOUNT REPRESENTATIVE Work Phone: [facility] 10-10-2022 10:10-0500 Diastolic blood pressure 88 mm[Hg] Clarence Berry COMMERCIAL ACCOUNT EXECUTIVE.SENIOR PATIENT ACCOUNT REPRESENTATIVE Work Phone: [facility] 10-10-2022 10:10-0500 Heart rate 72 /min Clarence Berry COMMERCIAL ACCOUNT EXECUTIVE.SENIOR PATIENT ACCOUNT REPRESENTATIVE Work Phone: [facility] 10-10-2022 10:10-0500 Respiratory rate 16 /min Clarence Berry COMMERCIAL ACCOUNT EXECUTIVE.SENIOR PATIENT ACCOUNT REPRESENTATIVE Work Phone: [facility] 10-10-2022 10:10-0500 SaO2% (BldA) [Mass fraction] 98 % Clarence Berry COMMERCIAL ACCOUNT EXECUTIVE.SENIOR PATIENT ACCOUNT REPRESENTATIVE Work Phone: [facility] 10-10-2022 10:10-0500 Systolic blood pressure 136 mm[Hg] Clarence Berry COMMERCIAL ACCOUNT EXECUTIVE.SENIOR PATIENT ACCOUNT REPRESENTATIVE Work Phone: [facility] 09-30-2022 09:29-0500 Body weight 71.67 kg Alicia Blount MD Work Phone: [facility] 09-30-2022 09:29-0500 Diastolic blood pressure 82 mm[Hg] Alicia Blount MD Work Phone: [facility] 09-30-2022 09:29-0500 Heart rate 84 /min Alicia Blount MD Work Phone: [facility] 09-30-2022 09:29-0500 Respiratory rate 16 /min Alicia Blount MD Work Phone: [facility] 09-30-2022 09:29-0500 Systolic blood pressure 158 mm[Hg] Alicia Blount MD Work Phone: [facility] 08-15-2022 13:00-0500 Body height 157.[address] Alicia Blount Work Phone: [facility] 08-15-2022 13:00-0500 Body weight 71.[address] Alicia Blount Work Phone: [facility] 08-15-2022 13:00-0500 Heart rate 80 /min Dr. Alicia Blount Work Phone: [facility] 08-15-2022 13:00-0500 Inhaled oxygen concentration 21 % Dr. Alicia Blount Work Phone: [facility] 08-15-2022 13:00-0500 SaO2% (BldA) [Mass fraction] 97 % Dr. Alicia Blount Work Phone: 7(224)320-415776 [place] [address] 07-26-2022 13:12-0500 Body mass index (BMI) [Ratio] 28.3 kg/m2 Dr. Alicia Blount Work Phone: 5(119)058-528719 [place] [address] 07-26-2022 13:12-0500 Body temperature 98.4 [degF] Dr. Alicia Blount Work Phone: 6(940)886-230119 [place] [address] 07-26-2022 13:12-0500 Body weight 71.[address] Alicia Blount Work Phone: 6(701)938-537019 [place] [address] 07-26-2022 13:12-0500 Diastolic blood pressure 91 mm[Hg] Dr. Alicia Blount Work Phone: 6(573)943-892719 [place] [address] 07-26-2022 13:12-0500 Heart rate 71 /min Dr. Alicia Blount Work Phone: 1(205)660-602419 [place] [address] 07-26-2022 13:12-0500 Respiratory rate 18 /min Dr. Alicia Blount Work Phone: 2(356)585-043819 [place] [address] 07-26-2022 13:12-0500 SaO2% (BldA) [Mass fraction] 97 % Dr. Alicia Blount Work Phone: 2(563)692-635619 [place] [address] 07-26-2022 13:12-0500 Systolic blood pressure 186 mm[Hg] Dr. Alicia Blount Work Phone: 6(310)189-530219 [place] [address] 05-26-2022 08:29-0400 Body mass index (BMI) [Ratio] 29 kg/m2 Dr. Alicia Blount Work Phone: 8(297)366-551719 [place] [address] 05-26-2022 08:29-0400 Body temperature 97.6 [degF] Dr. Alicia Blount Work Phone: 2(641)112-259419 [place] [address] 05-26-2022 08:29-0400 Body weight 72.[address] Alicia Blount Work Phone: 3(203)850-637919 [place] [address] 05-26-2022 08:29-0400 Diastolic blood pressure 84 mm[Hg] Dr. Alicia Blount Work Phone: [facility] 05-26-2022 08:29-0400 Heart rate 75 /min Dr. Alicia Blount Work Phone: [facility] 05-26-2022 08:29-0400 Respiratory rate 18 /min Dr. Alicia Blount Work Phone: [facility] 05-26-2022 08:29-0400 SaO2% (BldA) [Mass fraction] 94 % Dr. Alicia Blount Work Phone: [facility] 05-26-2022 08:29-0400 Systolic blood pressure 151 mm[Hg] Dr. Alicia Blount Work Phone: [facility] 05-16-2022 10:18-0400 Body temperature 97.2 [degF] Kaci Praisler-Wood COMMERCIAL ACCOUNT EXECUTIVE.GREENSKEEPER HEAD Work Phone: [facility] 05-16-2022 10:18-0400 Body weight 71.22 kg Kaci Praisler-Wood COMMERCIAL ACCOUNT EXECUTIVE.GREENSKEEPER HEAD Work Phone: [facility] 05-16-2022 10:18-0400 Diastolic blood pressure 76 mm[Hg] Kaci Praisler-Wood COMMERCIAL ACCOUNT EXECUTIVE.GREENSKEEPER HEAD Work Phone: [facility] 05-16-2022 10:18-0400 Heart rate 83 /min Kaci Praisler-Wood COMMERCIAL ACCOUNT EXECUTIVE.GREENSKEEPER HEAD Work Phone: [facility] 05-16-2022 10:18-0400 Respiratory rate 18 /min Kaci Praisler-Wood COMMERCIAL ACCOUNT EXECUTIVE.GREENSKEEPER HEAD Work Phone: [facility] 05-16-2022 10:18-0400 SaO2% (BldA) [Mass fraction] 96 % Kaci Praisler-Wood COMMERCIAL ACCOUNT EXECUTIVE.GREENSKEEPER HEAD Work Phone: [facility] 05-16-2022 10:18-0400 Systolic blood pressure 140 mm[Hg] Kaci Praisler-Wood COMMERCIAL ACCOUNT EXECUTIVE.GREENSKEEPER HEAD Work Phone: [facility] 05-02-2022 11:51-0400 Body weight 71.67 kg Clarence Berry COMMERCIAL ACCOUNT EXECUTIVE.SENIOR PATIENT ACCOUNT REPRESENTATIVE Work Phone: [facility] 05-02-2022 11:51-0400 Diastolic blood pressure 82 mm[Hg] Clarence Berry COMMERCIAL ACCOUNT EXECUTIVE.SENIOR PATIENT ACCOUNT REPRESENTATIVE Work Phone: [facility] 05-02-2022 11:51-0400 Heart rate 88 /min Clarence Berry COMMERCIAL ACCOUNT EXECUTIVE.SENIOR PATIENT ACCOUNT REPRESENTATIVE Work Phone: [facility] 05-02-2022 11:51-0400 Respiratory rate 16 /min Clarence Berry COMMERCIAL ACCOUNT EXECUTIVE.SENIOR PATIENT ACCOUNT REPRESENTATIVE Work Phone: [facility] 05-02-2022 11:51-0400 SaO2% (BldA) [Mass fraction] 96 % Clarence Berry COMMERCIAL ACCOUNT EXECUTIVE.SENIOR PATIENT ACCOUNT REPRESENTATIVE Work Phone: [facility] 05-02-2022 11:51-0400 Systolic blood pressure 132 mm[Hg] Clarence Berry COMMERCIAL ACCOUNT EXECUTIVE.SENIOR PATIENT ACCOUNT REPRESENTATIVE Work Phone: [facility] 04-25-2022 11:16-0400 Body mass index (BMI) [Ratio] 28.7 kg/m2 Dr. Alicia Blount Work Phone: [facility] Work Phone: 04-25-2022 11:16-0400 Body temperature 97.4 [degF] Dr. Alicia Blount Work Phone: [facility] Work Phone: 04-25-2022 11:16-0400 Body weight 71.[address] Alicia Blount Work Phone: [facility] Work Phone: 04-25-2022 11:16-0400 Diastolic blood pressure 82 mm[Hg] Dr. Alicia Blount Work Phone: [facility] Work Phone: 04-25-2022 11:16-0400 Heart rate 80 /min Dr. Alicia Blount Work Phone: [facility] Work Phone: 04-25-2022 11:16-0400 Respiratory rate 16 /min Dr. Alicia Blount Work Phone: [facility] Work Phone: 04-25-2022 11:16-0400 SaO2% (BldA) [Mass fraction] 97 % Dr. Alicia Blount Work Phone: [facility] Work Phone: 04-25-2022 11:16-0400 Systolic blood pressure 138 mm[Hg] Dr. Alicia Blount Work Phone: [facility] Work Phone: 03-31-2022 14:17-0400 Body weight 70.31 kg Alicia Blount MD Work Phone: [facility] 03-31-2022 14:17-0400 Diastolic blood pressure 78 mm[Hg] Alicia Blount MD Work Phone: [facility] 03-31-2022 14:17-0400 Heart rate 76 /min Alicia Blount MD Work Phone: [facility] 03-31-2022 14:17-0400 SaO2% (BldA) [Mass fraction] 95 % Alicia Blount MD Work Phone: [facility] 03-31-2022 14:17-0400 Systolic blood pressure 128 mm[Hg] Alicia Blount MD Work Phone: [facility] 01-30-2022 12:25-0400 Body temperature 98.29 [degF] Anu Pablo PA-C Work Phone: [facility] 01-30-2022 12:25-0400 Body weight 70.67 kg Anu JAQUEZ-C Work Phone: [facility] 01-30-2022 12:25-0400 Diastolic blood pressure 80 mm[Hg] Anu Bogner PA-C Work Phone: [facility] 01-30-2022 12:25-0400 Heart rate 80 /min Anu Bogner PA-C Work Phone: [facility] 01-30-2022 12:25-0400 Respiratory rate 16 /min Anu Bogner PA-C Work Phone: [facility] 01-30-2022 12:25-0400 SaO2% (BldA) [Mass fraction] 97 % Anu Bogner PA-C Work Phone: [facility] 01-30-2022 12:25-0400 Systolic blood pressure 122 mm[Hg] Anu Bogner PA-C Work Phone: [facility] 12-21-2021 09:00-0400 Diastolic blood pressure 82 mm[Hg] Erik Underwood MD Work Phone: [facility] 12-21-2021 09:00-0400 Heart rate 62 /min Erik Underwood MD Work Phone: [facility] 12-21-2021 09:00-0400 Respiratory rate 14 /min Erik Underwood MD Work Phone: [facility] 12-21-2021 09:00-0400 SaO2% (BldA) [Mass fraction] 96 % Erik Underwood MD Work Phone: [facility] 12-21-2021 09:00-0400 Systolic blood pressure 160 mm[Hg] Erik Underwood MD Work Phone: [facility] 12-21-2021 08:22-0400 Body temperature 97.7 [degF] Erik Underwood MD Work Phone: [facility] 12-21-2021 07:07-0400 Body height 157.5 cm Erik Underwood MD Work Phone: [facility] 12-21-2021 07:07-0400 Body weight 67.59 kg Erik Underwood MD Work Phone: [facility] 11-22-2021 13:09-0400 Body weight 67.59 kg Alicia Blount MD Work Phone: [facility] 11-22-2021 13:09-0400 Diastolic blood pressure 62 mm[Hg] Alicia Blount MD Work Phone: [facility] 11-22-2021 13:09-0400 Heart rate 82 /min Alicia Blount MD Work Phone: [facility] 11-22-2021 13:09-0400 Systolic blood pressure 122 mm[Hg] Alicia Blount MD Work Phone: [facility] Encounters Encounter Date Encounter Type Care Provider Facility Start: 04-02-2025 [facility] Start: 04-01-2025 End: 04-01-2025 ambulatory Liliya Radha Facility:[facility] Start: 03-26-2025 End: 03-26-2025 ambulatory Selam Shepard MA [facility] [place] Start: 03-26-2025 End: 03-26-2025 Patient encounter procedure Selam Shepard [facility] Comment on above: Population Health Na vigation Outreach ([place] ) Start: 03-19-2025 End: 03-19-2025 ambulatory Hernando Pandya Facility:[facility] Start: 02-26-2025 End: 02-26-2025 ambulatory Hernandojaswinder Pandya Facility:[facility] Start: 02-23-2025 End: 02-23-2025 ambulatory Selam Shpeard [facility] Start: 02-23-2025 End: 02-23-2025 Patient encounter procedure Selam Shepard MA [facility] [place] Comment on above: Population Health Na vigation Outreach ([place] ) Start: 02-19-2025 End: 02-19-2025 ambulatory Alicia Rhonda Hyattampshanika Facility:[facility] Start: 02-17-2025 End: 02-17-2025 ambulatory Hernando Baddour Facility:[facility] Start: 02-04-2025 End: 02-04-2025 ambulatory Alicia D Talampshanika Facility:[facility] Start: 01-28-[address] Facility:[facility] Start: 01-22-2025 End: 01-22-2025 ambulatory Selam Shepard [facility] Start: 01-22-2025 End: 01-22-2025 Patient encounter procedure Selam Shepard MA [facility] Comment on above: Population Health Na vigation Outreach ([place] ) Start: 01-15-2025 End: 01-15-2025 ambulatory Hernando Pandya Facility:[facility] Start: 01-01-2025 End: 01-01-2025 ambulatory Michelle Zuleta Facility:[facility] Start: 12-23-2024 End: 12-23-2024 ambulatory Selam Shepard [facility] Start: 12-23-2024 End: 12-23-2024 Patient encounter procedure Selam Shepard MA [facility] Comment on above: Population Health Na vigation Outreach ([place] ) Start: 12-18-2024 End: 12-19-2024 Telephone encounter Alicia Blount MD Work Phone: [facility] Comment on above: OT plan of care Start: 12-17-2024 End: 12-17-2024 Home visit Alicia Blount MD Work Phone: [facility] Comment on above: 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) (Primary Dx) Start: 12-15-2024 End: 12-15-2024 ambulatory Liliyajocelyn Garcia Facility:[facility] Start: 12-15-2024 End: 12-16-2024 Telephone encounter Alicia Blount MD Work Phone: Internal [facility] [place] Comment on above: OT plan of care Start: 12-15-2024 End: 12-15-[address] Facility:[facility] Start: 12-12-2024 End: 12-12-[address] Facility:[facility] Start: 12-10-2024 End: 12-11-2024 Telephone encounter Alicia Blount MD Work Phone: Internal [facility] [place] Comment on above: Delay of care- OT WC H HH Start: 12-08-2024 End: 12-08-2024 ambulatory Aniket Guo Facility:[facility] Start: 11-20-2024 End: 11-20-2024 ambulatory Selam Shepard MARCELL Shayate [facility] [place] Start: 11-20-2024 End: 11-20-2024 Patient encounter procedure Selam Shepard MA Navigate [facility] [place] Comment on above: Population Health Na vigation Outreach ([place] Start: 11-19-2024 End: 11-20-2024 Telephone encounter Alicia Blount MD Work Phone: Internal [facility] [place] Comment on above: Occupatioal Therapy Updated Plan of Care Start: 11-12-2024 ambulatory Alicia D Talampas Facilit y:[facility] Start: 11-11-2024 End: 11-11-2024 ambulatory Alicia D Talampas Facility:[facility] Start: 11-03-2024 End: 11-03-2024 ambulatory Alicia D Talampas Facility:[facility] Start: 11-03-2024 End: 11-03-2024 ambulatory Alicia D Talampas Facility:[facility] Start: 10-27-2024 End: 10-29-2024 Telephone encounter Alicia Blount MD Work Phone: Internal Medicine [place] Comment on above: [facility] HH OT updated PO C Medication Problem Start: 10-25-2024 End: 10-25-2024 ambulatory Gabrielle Murdock RN NURSE ESOL TEACHER ASSISTANT Start: 10-25-2024 End: 10-25-2024 Follow-up encounter Gabrielle Murdock RN NURSE ESOL TEACHER ASSISTANT Comment on above: Follow Up Start: 10-25-2024 End: 12-24-2024 Telephone encounter Ligia Schilling DO Work Phone: [facility] Start: 10-24-2024 End: 10-27-2024 Telephone encounter Alicia Blount MD Work Phone: Internal Medicine [place] Comment on above: Patient Update Start: 10-23-2024 End: 10-28-2024 Telephone encounter Alicia Blount MD Work Phone: [facility] [place] Comment on above: ST plan of care Start: 10-20-2024 End: 10-21-2024 Telephone encounter Alicia Blount MD Work Phone: Internal [facility] [place] Comment on above: Home Health Point of Care Results Start: 10-20-2024 End: 10-20-2024 ambulatory Alicia D Talampas Facility:[facility] Start: 10-17-2024 End: 10-17-2024 Telephone encounter Alicia Blount MD Work Phone: [facility] [place] Comment on above: Follow HH Start: 10-07-2024 ambulatory Alicia D Talampas Facilit y:[facility] Start: 09-21-2024 ambulatory Alicia D Talampas Facilit y:[facility] Start: 09-21-2024 End: 10-17-2024 Evaluation and management of inpatient Alicia D Talampas Facility:[facility] Start: 09-05-2024 ambulatory Alicia D Talampas Facilit y:[facility] Start: 09-05-2024 ambulatory Alicia D Talampas Facilit y:[facility] Start: 08-29-2024 ambulatory Alicia D Talampas Facilit y:[facility] Start: 08-29-2024 End: 09-21-2024 Evaluation and management of inpatient Alicia D Talampas Facility:[facility] Start: 08-27-2024 ambulatory Alicia D Talampas Facilit y:[facility] Start: 08-25-2024 ambulatory Alicia D Talampas Facilit y:[facility] Start: 08-25-2024 ambulatory David Vila Facility[facility] Start: 08-25-2024 End: 08-29-2024 Evaluation and management of inpatient Daya Onofre Facility:[facility] Start: 08-13-2024 End: 08-13-2024 ambulatory Alicia D Talampas Facility:[facility] Start: 08-12-2024 End: 08-12-2024 ambulatory Alicia D Talampas Facility:[facility] Start: 08-07-2024 End: 08-08-2024 ambulatory Alicia D Talampas Facility:[facility] Start: 08-07-2024 End: 08-25-2024 Evaluation and management of inpatient Alicia D Talampas Facility:[facility] Start: 08-03-2024 ambulatory Kat L White Facility :[facility] Start: 08-03-2024 End: 08-07-2024 Evaluation and management of inpatient Kat L White Facility:[facility] Start: 08-03-2024 End: 08-03-2024 ambulatory Alicia D Talampas Facility:[facility] Start: 08-01-2024 End: 08-01-2024 Patient Outreach Ellen Gonzalez RN Work Phone: [employer] Comment on above: Weekly phone contact (Recurring) for Transitional Care Management Start: 07-15-2024 End: 07-15-2024 ambulatory ALICIA D TALAMPAS Facility:[facility] Start: 07-15-2024 End: 07-15-2024 Transitional care manage srvc 7 day discharge Alicia Blount MD Work Phone: Internal Medicine [place] Comment on above: Syncope, unspecified syncope type (Primary Dx); Diabetes 1.5, managed as type 1 (HCC); Recurrent bronchospasm; Bronchiectasis without complication (HCC); Chronic cough Start: 07-14-2024 End: 07-14-2024 Patient Outreach Ellen Gonzalez RN Work Phone: [employer] Comment on above: Initial phone contac t for Transitional Care Management Start: 07-11-2024 ambulatory Alicia D Talampas Facilit y:[facility] Start: 07-10-2024 ambulatory Alicia D Talampas Facilit y:[facility] Start: 07-10-2024 End: 07-12-2024 Evaluation and management of inpatient Alicia D Talampas Facility:[facility] Start: 07-01-2024 End: 07-01-2024 ambulatory Alicia D Talampas Facility:[facility] Start: 06-23-2024 End: 06-23-2024 ambulatory Alicia D Talampas Facility:[facility] Start: 06-16-2024 End: 06-16-2024 ambulatory Alicia D Talampas Facility:[facility] Start: 05-29-2024 End: 05-29-2024 ambulatory Alicia D Talampas Facility:[facility] Start: 05-27-2024 End: 05-27-2024 Office outpatient visit 25 minutes Alicia Blount MD Work Phone: Internal [facility] [place] Comment on above: Anxiety (Primary Dx) ; Essential hypertension; Diabetes 1.5, managed as type 1 (HCC); Stress incontinence; Viral syndrome; Right leg swelling Start: 05-27-2024 End: 05-27-2024 ambulatory ALICIA Rhonda HYATTDEEPAK Facility:[facility] Start: 05-26-2024 End: 05-26-2024 ambulatory Alicia Rhonda Blount Facility:[facility] Start: 05-15-2024 End: 05-15-2024 ambulatory Alicia Blount Facility:[facility] Start: 05-01-2024 End: 05-01-2024 ambulatory Alicia Blount MD Work Phone: Internal [facility] [place] Comment on above: Headache Start: 05-01-2024 End: 05-01-2024 Emergency department patient visit Alicia Blount Facility:[facility] Start: 04-28-2024 End: 04-28-2024 Telephone encounter Nurse Card Admin [facility] Work Phone: Cardiology Comment on above: Stress Test Instruct ions for 05/05/24 Start: 04-15-2024 End: 04-15-2024 ambulatory Alicia Rhonda Hyattdeepak Facility:[facility] Start: 04-07-2024 End: 04-07-2024 ambulatory Alicia Rhonda Hyattdeepak Facility:[facility] Start: 03-18-2024 Refill Alicia kirkpatrick MD Work Phone: [facility] Comment on above: Refill Request Start: 03-04-2024 Telephone encounter Nurse Card Admin [facility] Work Phone: Cardiology Comment on above: Stress Test Instruct ions for 03/10/24 Start: 02-17-2024 End: 02-17-2024 Patient encounter procedure Antoinette Agrawal APRN.CNP Work Phone: [facility] Comment on above: SOB (shortness of br eath) (Primary Dx) Start: 02-12-2024 End: 02-12-2024 Subsequent hospital visit by physician Xr [facility] [place] Work Phone: Radiology Comment on above: Acute cough [R05.1] Start: 02-12-2024 End: 02-12-2024 Patient encounter procedure Martin Munguia COMMERCIAL ACCOUNT EXECUTIVE.GREENSKEEPER HEAD Work Phone: [facility] Comment on above: Sinobronchitis (Prim jessica Dx); Acute cough Start: 01-31-2024 Telephone encounter Clarence mccormack COMMERCIAL ACCOUNT EXECUTIVE.SENIOR PATIENT ACCOUNT REPRESENTATIVE Work Phone: Radiology Comment on above: Orders Start: 01-31-2024 End: 01-31-2024 Office outpatient visit 15 minutes Clarencesanta Berry COMMERCIAL ACCOUNT EXECUTIVE.SENIOR PATIENT ACCOUNT REPRESENTATIVE Work Phone: Internal Medicine [place] Comment on above: Diabetes 1.5, manage d as type 1 (HCC) (Primary Dx); Screening for diabetic retinopathy; Chest pain, unspecified type; Lightheadedness; Syncope, unspecified syncope type Start: 01-14-2024 Refill Alicia kirkpatrick MD Work Phone: Internal Medicine [place] Comment on above: Refill Request Start: 12-24-2023 Refill Alicia kirkpatrick MD Work Phone: [facility] [place] Comment on above: Refill Request Start: 12-11-2023 Telephone encounter Simran Susy wells COMMERCIAL ACCOUNT EXECUTIVE.GREENSKEEPER HEAD Work Phone: [facility] Comment on above: Results Start: 12-09-2023 End: 12-09-2023 Patient encounter procedure Antoinette Agrawal COMMERCIAL ACCOUNT EXECUTIVE.GREENSKEEPER HEAD Work Phone: [facility] Comment on above: Urinary frequency (P rimary Dx) Start: 10-01-2023 End: 10-01-2023 Office outpatient visit 25 minutes Alicia Blount MD Work Phone: Internal Medicine [place] Comment on above: Diabetes mellitus du e to underlying condition with diabetic neuropathy, with long-term current use of insulin (HCC) (Primary Dx); 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; Gastroesophageal reflux disease with esophagitis; Vitamin B6 deficiency; Vitamin D deficiency; Essential hypertension; Encounter for long-term current use of medication; Diabetes 1.5, managed as type 1 (HCC); Gait instability Start: 09-28-2023 Telephone encounter Alicia rothman MD Work Phone: Internal Medicine [place] Comment on above: Orders Start: 08-10-2023 End: 08-10-[address] Alicia Blount Work Phone: [facility] Work Phone: Start: 08-10-2023 End: 08-10-[address] Alicia Blount Work Phone: [facility] Work Phone: Start: 07-31-2023 End: 07-31-[address] Alicia Blount Work Phone: [facility] Endocrinology Work Phone: Start: 07-19-2023 Refill Alicia kirkpatrick MD Work Phone: Internal Medicine [place] Comment on above: Refill Request Start: 07-19-2023 End: 07-19-[address] Alicia Blount Work Phone: [facility] Orthopaedic Specia Work Phone: Start: 07-16-2023 End: 07-16-[address] Alicia Blount Work Phone: [facility] Neurology Work Phone: Start: 07-02-2023 End: 07-02-2023 Office outpatient visit 25 minutes Clarence Berry APRN.SENIOR PATIENT ACCOUNT REPRESENTATIVE Work Phone: Internal Medicine [place] Comment on above: Debility (Primary Dx ); Diabetes 1.5, managed as type 1 (HCC); Sepsis, due to unspecified organism, unspecified whether acute organ dysfunction present (HCC); Pain in left ta Start: 06-28-2023 Telephone encounter Alicia rothman MD Work Phone: Internal Medicine [place] Comment on above: FYI-PT plan of care Start: 06-27-2023 Telephone encounter Alicia rothman MD Work Phone: Internal Medicine [place] Comment on above: Home Health Update Start: 06-15-2023 End: 06-15-[address] Alicia Blount Work Phone: [facility] Work Phone: Start: 06-15-2023 End: 06-15-[address] Alicia Blount Work Phone: [facility] Work Phone: Start: 06-13-2023 End: 06-13-[address] Alicia Blount Work Phone: [facility] Work Phone: Start: 06-13-2023 End: 06-13-[address] Alicia Blount Work Phone: [facility]-Cat Scan, [facility] Work Phone: Start: 06-13-2023 End: 06-26-2023 Evaluation and management of inpatient Dr. Alicia Blount Work Phone: [facility]-Transitional Care Unit Start: 06-13-2023 Non-patient / Non-visit Dr. Hellen Blount Work Phone: [facility] Work Phone: Start: 06-12-2023 Non-patient / Non-visit Dr. Hellen Blount Work Phone: [facility] Work Phone: Start: 06-11-2023 Non-patient / Non-visit Dr. Hellen Blount Work Phone: [facility] [facility] Work Phone: Start: 06-10-2023 End: 06-13-2023 Evaluation and management of inpatient Dr. Alicia Blount Work Phone: [facility]-Medical Surgical 3 Work Phone: Start: 06-07-2023 End: 06-07-[address] Alicia Blount Work Phone: [facility] Work Phone: Start: 06-06-2023 ambulatory SABINO NELSON Facili ty:[facility] Start: 06-06-2023 End: 06-06-2023 Subsequent hospital visit by physician Erik Underwood MD Work Phone: [facility] Endoscopy Comment on above: 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 [K22.70] Start: 06-05-2023 Telephone encounter Alicia rothman MD Work Phone: Internal Medicine [place] Comment on above: Patient Question Start: 06-04-2023 End: 06-04-2023 Patient encounter procedure Radha Balderrama MD Work Phone: General Surgery Comment on above: 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 Start: 05-31-2023 End: 05-31-2023 Office outpatient visit 25 minutes Clarence Berry COMMERCIAL ACCOUNT EXECUTIVE.SENIOR PATIENT ACCOUNT REPRESENTATIVE Work Phone: Internal Medicine [place] Comment on above: Bronchiectasis witho ut complication (HCC) (Primary Dx); Carcinoid bronchial adenoma, 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HCC); Encounter for immunization; 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; Essential hypertension; Anxiety Start: 04-08-2023 End: 04-08-2023 Patient encounter procedure Navya Thrasher APRN.GREENSKEEPER HEAD Work Phone: [facility] Comment on above: Viral URI (Primary D x); Right ear pain Start: 03-28-2023 Telephone encounter Alicia rothman MD Work Phone: Internal Medicine [place] Comment on above: Medication Question Start: 03-07-2023 End: 03-07-[address] Alicia Blount Work Phone: [facility]Pulmonary Medicine [facility] Work Phone: Start: 03-05-2023 End: 03-05-[address] Alicia Blount Work Phone: [facility] Endocrinology Work Phone: Start: 02-12-2023 Refill Alicia kirkpatrick MD Work Phone: [facility] [place] Comment on above: Opened In Error Start: 02-08-2023 Refill Nusrat Hardeep Arenas [facility] Family Medicine [place] Comment on above: Refill Request Start: 01-25-2023 Telephone encounter Alicia rothman MD Work Phone: [facility] [place] Comment on above: Orders Start: 01-01-2023 End: 01-01-2023 Subsequent hospital visit by physician Xr [facility] [place] Work Phone: Radiology Comment on above: Foot pain, right [M7 9.671] Start: 10-17-2022 End: 10-17-2022 Office outpatient visit 25 minutes Clarence Berry APRN.SENIOR PATIENT ACCOUNT REPRESENTATIVE Work Phone: Internal Medicine [place] Comment on above: Intractable acute po st-traumatic headache (Primary Dx); Contusion of right foot, initial encounter; Contusion of caodaism region, initial encounter; Injury of coccyx, initial encounter; Facial pain; Jaw pain Start: 10-11-2022 Telephone encounter Alicia rothman MD Work Phone: [facility] Medicine [place] Comment on above: Insurance Authorizat ion Start: 10-10-2022 End: 10-10-2022 Subsequent hospital visit by physician [facility] (I-Stat) Work Phone: Cat Scan Comment on above: Injury of head, subs equent encounter [S09.90XD] Start: 10-10-2022 End: 10-10-2022 Office outpatient visit 25 minutes Clarence Berry COMMERCIAL ACCOUNT EXECUTIVE.SENIOR PATIENT ACCOUNT REPRESENTATIVE Work Phone: [facility] Medicine [place] Comment on above: Intractable acute po st-traumatic headache (Primary Dx); Contusion of right foot, initial encounter; Contusion of caodaism region, initial encounter; Injury of coccyx, initial encounter; Facial pain; Jaw pain; Injury of head, subsequent encounter Start: 09-30-2022 End: 09-30-2022 Office outpatient visit 40 minutes Alicia Blount MD Work Phone: Internal Medicine [place] Comment on above: Diabetes mellitus du e to underlying condition with diabetic neuropathy, with long-term current use of insulin (HCC) (Primary Dx); Contusion of right foot, initial encounter; Contusion of caodaism region, initial encounter; Injury of coccyx, initial encounter; Facial pain; Jaw pain; Anxiety; Vitamin D deficiency Start: 08-21-2022 Telephone encounter Alicia rothman MD Work Phone: Internal Medicine [place] Comment on above: Results Start: 08-18-2022 Non-patient / Non-visit Dr. Hellen Blount Work Phone: [facility] Start: 08-18-2022 End: 08-18-[address] Alicia Blount Work Phone: [facility] Work Phone: Start: 08-18-2022 End: 08-18-[address] Alicia Blount Work Phone: [facility]-Cardiovascular Services Start: 08-15-2022 Non-patient / Non-visit Dr. Hellen Blount Work Phone: [facility] Start: 08-15-2022 End: 08-15-[address] Alicia Blount Work Phone: [facility] Work Phone: Start: 08-15-2022 End: 08-15-[address] Alicia Blount Work Phone: [facility]-Pulmonary Services/Neurology Start: 08-11-2022 Non-patient / Non-visit Dr. Hellen Blount Work Phone: [facility] Start: 08-09-2022 End: 08-09-[address] Alicia Blount Work Phone: [facility] Work Phone: Start: 08-09-2022 End: 08-09-[address] Alicia Blount Work Phone: [facility]-Pulmonary Services/Neurology Start: 08-02-2022 Telephone encounter Alicia rothman MD Work Phone: Internal Medicine [place] Comment on above: Orders Start: 07-26-2022 End: 07-26-[address] [facility] Blount [facility] Start: 06-23-2022 Telephone encounter Alicia rothman MD Work Phone: [address] [place] [address] Comment on above: Refill Request Start: 06-16-2022 Telephone encounter Alicia rothman MD Work Phone: Internal Medicine [place] Comment on above: Faxed ECHO results Refill Request Start: 05-26-2022 Telephone encounter Alicia rothman MD Work Phone: Internal Medicine [place] Comment on above: Patient Question Start: 05-26-2022 End: 05-26-[address] Alicia Blount Work Phone: [facility] Endocrinology Start: 05-17-2022 Telephone encounter Lyly sanford PA-C Work Phone: [facility] Comment on above: Results Start: 05-16-2022 End: 05-16-2022 Patient encounter procedure Kaci Savage APRN.GREENSKEEPER HEAD Work Phone: [facility] Comment on above: Suspected COVID-19 v irus infection (Primary Dx) Start: 05-15-2022 Telephone encounter Alicia rothman MD Work Phone: Internal Medicine [place] Comment on above: Flu Like Symptoms Start: 05-02-2022 End: 05-02-2022 Patient encounter procedure Clarence Berry APRN.SENIOR PATIENT ACCOUNT REPRESENTATIVE Work Phone: Internal Medicine [place] Comment on above: Osteoporosis, unspec ified osteoporosis type, unspecified pathological fracture presence (Primary Dx); Anxiety; Encounter for immunization Start: 04-25-2022 End: 04-25-[address] Alicia Blount [facility] Start: 04-18-2022 Telephone encounter Alicia rothman MD Work Phone: Internal Medicine [place] Comment on above: Results (Bone Densit y/) Start: 04-03-2022 End: 04-03-2022 Subsequent hospital visit by physician Bone Density [facility] Work Phone: Radiology Comment on above: Asymptomatic postmen opausal status [Z78.0] Start: 03-31-2022 End: 03-31-2022 Office outpatient visit 25 minutes Alicia Blount MD Work Phone: Internal Medicine [place] Comment on above: Vitamin D deficiency (Primary Dx); Chronic cough; Vitamin B6 deficiency; Essential hypertension; 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, with long-term current use of insulin (HCC); Hyperlipidemia, unspecified hyperlipidemia type; Left lateral epicondylitis; Radial styloid tenosynovitis of left hand; Asymptomatic postmenopausal status Start: 01-30-2022 End: 01-30-2022 Subsequent hospital visit by physician Xr [facility] Work Phone: Radiology Comment on above: Ankle injury, initia l encounter [S99.919A] Start: 01-30-2022 End: 01-30-2022 Office outpatient visit 15 minutes Anu Pablo PA-C Work Phone: [facility] Comment on above: Ankle injury, initia l encounter (Primary Dx) Start: 01-13-2022 Telephone encounter Alicia rothman MD Work Phone: Internal Medicine [place] Comment on above: Patient Question Start: 01-07-2022 Refill Alicia kirkpatrick MD Work Phone: Family Medicine [place] Comment on above: Refill Request Start: 01-02-2022 Refill Alicia kirkpatrick MD Work Phone: [facility] [place] Comment on above: Refill Request Start: 12-21-2021 End: 12-21-2021 Subsequent hospital visit by physician Erik Underwood MD Work Phone: [facility] Comment on above: History of Gonzales's esophagus [Z87.19] Start: 12-12-2021 Telephone encounter Alicia rothman MD Work Phone: Internal Medicine [place] Comment on above: Patient Question (EG D, medication questions) Start: 12-01-2021 Refill Alicia kirkpatrick MD Work Phone: Internal Medicine [place] Comment on above: Refill Request Start: 11-22-2021 End: 11-22-2021 Office outpatient visit 40 minutes Alicia Blount MD Work Phone: [facility] [place] Comment on above: Urinary tract infect ion without hematuria, site unspecified (Primary Dx); Chronic cough; Fall, initial encounter; Bilateral leg edema; 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, with long-term current use of insulin (HCC); Vitamin D deficiency; Essential hypertension; Vitamin B6 deficiency; Encounter for long-term current use of medication; Stomach upset; Gastroesophageal reflux disease, unspecified whether esophagitis present Start: 06-03-2021 End: 06-03-2021 Subsequent hospital visit by physician [facility] [place] Work Phone: Radiology Comment on above: Suspected 2019 novel coronavirus infection [Z20.822] Procedures Date Procedure Procedure Detail Performing Clinician Start: 02-12-2024 Radiologic exam chest 2 views Mratin santana COMMERCIAL ACCOUNT EXECUTIVE.GREENSKEEPER HEAD Work Phone: Start: 01-31-2024 Ecg routine ecg w/least 12 lds i&r only Clarence Berry COMMERCIAL ACCOUNT EXECUTIVE.SENIOR PATIENT ACCOUNT REPRESENTATIVE Work Phone: Start: 12-09-2023 Urnls dip stick/tablet rgnt auto w/o microscopy Antoinette Agrawal APRN.GREENSKEEPER HEAD Work Phone: Start: 08-10-2023 MRI of cervical spine Dr. Alicia Blount Work Phone: Start: 08-10-2023 MRI of lumbar spine Dr. Alicia Blount Work Phone: Start: 07-19-2023 Plain x-ray of pelvis and lower extremity Dr. Alicia Blount Work Phone: Start: 07-19-2023 X-ray of lumbar spine, two or three views Dr. Alicia Blount Work Phone: Start: 06-15-2023 MRI of brain without contrast Dr. Alicia dubose Work Phone: Start: 06-13-2023 MRI of lower extremity Dr. Alicia Blount Work Phone: Start: 06-10-2023 Plain X-ray of tibia and fibula Dr. Alicia Blount Work Phone: Start: 06-10-2023 Plain chest X-ray Dr. Alicia Blount Work Phone: Start: 06-10-2023 Bacteria identified in Blood by Culture Dr. Alicia Blount Work Phone: Start: 06-10-[address] Alicia Blount Work Phone: Start: 06-10-[address] Alicia Blount Work Phone: Start: 06-06-2023 Gluc bld gluc mntr dev cleared fda spec home use Sabino Rivera Finney DO Work Phone: Start: 06-06-2023 Esophagogastroduodenoscopy transoral diagnostic Radha Balderrama MD Work Phone: Start: 06-06-2023 Gluc bld gluc mntr dev cleared fda spec home use Sabino Rivera Leslie DO Work Phone: Start: 05-31-2023 INFLUENZA VACCINE, PRSV FREE, AGE 65+ YR, HIGH DOSE, QUADRIVALENT (FLUZONE HIGH-DOSE) Clarence Berry APRN.SENIOR PATIENT ACCOUNT REPRESENTATIVE Work Phone: Start: 01-01-2023 Radex foot complete minimum 3 views Betsy Cheng MD Work Phone: Start: 10-10-2022 Ct head/brain w/o contrast material Baldev Berry COMMERCIAL ACCOUNT EXECUTIVE.SENIOR PATIENT ACCOUNT REPRESENTATIVE Work Phone: Start: 05-02-2022 INFLUENZA SEASONAL QUADRIVALENT HIGH DOSE AGE 65+ Clarence Berry COMMERCIAL ACCOUNT EXECUTIVE.SENIOR PATIENT ACCOUNT REPRESENTATIVE Work Phone: Start: 04-03-2022 Dxa bone density study 1/> sites axial skel Alicia Blount MD Work Phone: Start: 01-30-2022 Radex ankle complete minimum 3 views Anu ALEJANDROC Work Phone: Start: 12-21-2021 Gluc bld gluc mntr dev cleared fda spec home use Pippa Umina AA Work Phone: Start: 12-21-2021 Esophagoscp rig transoral hypopharynx crv tray Limon COMMERCIAL ACCOUNT EXECUTIVE.GREENSKEEPER HEAD Work Phone: Start: 12-21-2021 Gluc bld gluc mntr dev cleared fda spec home use Pippa Umina AA Work Phone: Start: 06-03-2021 Radiologic exam chest 2 views Lyly R Chani sanford PA-C Work Phone: Start: 11-29-2020 Adult depression screening assessment Alicia Blount MD Work Phone: Plan of Treatment Date Care Activity Detail Author Start: 06-05-2025 End: 06-05-2025 Patient encounter procedure 06/05/2025 9:40 AM EDT Office Visit Internal [facility] [place] [address] [place] [address] Alicia Blount MD [address] [place] [address] 4 month follow up [facility] [place] Comment on above: 4 month follow up Start: 04-13-2025 Influenza vaccination Influenza Vacc ine (#1) [facility] Start: 04-09-2025 ambulatory Facility:[facility] Start: 01-30-2025 Hepatitis B screening Urine Al bumin:Creatinine Ratio [facility] Start: 01-30-2025 Hepatitis B surface antibody level LDL Cholesterol [facility] Start: 01-26-2025 End: 01-26-2025 Patient encounter procedure 01/26/2025 4:40 PM EDT Office Visit [facility] [place] [address] [place] [address] Alicia Blount MD [address] [place] [address] 4 month follow up [facility] [place] Comment on above: 4 month follow up Start: 10-27-2024 End: 10-27-2024 Patient encounter procedure 10/27/2024 10:00 AM EDT Office Visit Internal Medicine [place] [address] [facility] [place] [address] Clarence Berry APRN.SENIOR PATIENT ACCOUNT REPRESENTATIVE [address] [place] [address] 4 mo follow up [facility] [place] Comment on above: 4 mo follow up Start: 10-03-2024 End: 10-03-2024 Patient encounter procedure 10/03/2024 3:00 PM EST Office Visit Internal Medicine [place] [address] [facility] [place] [address] Alicia Blount MD [address] [place] [address] 4 month follow up [facility] [place] Comment on above: 4 month follow up Start: 09-28-2024 Hepatitis B surface antibody level LDL Cholesterol [facility] Start: 08-13-2024 Advance Directive Discussion Advance Directive Discussion [facility] Start: 07-15-2024 End: 07-15-2024 Patient encounter procedure 07/15/2024 11:20 AM EST Office Visit Internal Medicine [place] [address] [facility] [place] [address] Alicia Blount MD [address] [place] [address] [facility] 07/12/24 for Syncope (Ok per LDT) [facility] [place] Comment on above: [facility] 07/12/24 f or Syncope (Ok per LDT) Start: 05-27-2024 End: 05-27-2024 Patient encounter procedure 05/27/2024 10:00 AM EDT Office Visit Internal Medicine [place] [address] [address] Alicia Blount MD [address] [place] [address] 4 mo follow up [facility] [place] Comment on above: 4 mo follow up Start: 05-05-2024 End: 05-05-2024 Patient encounter procedure 05/05/2024 11:20 AM EDT Office Visit Cardiology [address] [place] [address] Wstr, Nurse Card Admin [facility] [address] [place] [address] Chest pain, unspecified type [R07.9] Cardiology Comment on above: Chest pain, unspecif ied type [R07.9] Start: 05-02-2024 Hemoglobin A1c measurement HbA1C [facility] Start: 04-13-2024 Covid-19 Vaccine ( season) Covid-19 Vaccine ( season) [facility] Start: 04-13-2024 Covid-19 Vaccine ( season) Covid-19 Vaccine ( season) [facility] Start: 04-13-2024 Influenza vaccination Influenza Vacc ine (#1) [facility] Start: 04-03-2024 Screening for osteoporosis Bone Density Screening [facility] Start: 03-10-2024 End: 03-10-2024 Patient encounter procedure 03/10/2024 11:20 AM EDT Office Visit Cardiology [address] [place] [address] Wstr, Nurse Card Admin [facility] [address] [place] [address] Chest pain, unspecified type [R07.9] Cardiology Comment on above: Chest pain, unspecif ied type [R07.9] Start: 03-07-2024 End: 03-07-2024 Patient encounter procedure 03/07/2024 9:00 AM EDT Office Visit Vasculary Surgery [address] [place] [address] [facility] Status: Needs Scheduling [facility] Comment on above: S CAROTID [facility]ERIES [facility] Status: Needs Scheduling Start: 01-31-2024 End: 01-31-2024 Patient encounter procedure 01/31/2024 10:00 AM EDT Office Visit Internal Medicine [place] [address] [place] [place] [address] Clarence Berry APRN.SENIOR PATIENT ACCOUNT REPRESENTATIVE [address] [place] [address] 4 mo follow up [facility] Medicine [place] Comment on above: 4 mo follow up Start: 01-30-2024 End: 04-30-2024 25-hydroxyvitamin D3 [Mass/volume] in Serum or Plasma VITAMIN D 25 HYDROXY Lab Routine Vitamin D deficiency Encounter for long-term current use of medication Expected: 01/30/2024 (Approximate), Expires: 04/30/2024 [facility] Work Phone: Comment on above: Expected: 01/30/2024 (Approximate), Expires: 04/30/2024 Start: 01-30-2024 3 comp foot exam completed DIABETIC FOOT EXAM [facility] Start: 01-30-2024 ANNUAL PCP TEAM PRACTICE ADVISOR ALEXANDER DISEASE VISIT ANNUAL PCP TEAM CHRONIC DISEASE VISIT 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, with long-term current use of insulin (HCC) Essential hypertension Encounter for long-term current use of medication Expected: 01/30/2024 (Approximate), Expires: 04/30/2024 [facility] Work Phone: Comment on above: Expected: 01/30/2024 (Approximate), Expires: 04/30/2024 Start: 01-30-2024 End: 04-30-2024 Cobalamin (Vitamin B12) [Mass/volume] in Serum or Plasma VITAMIN B12 BLOOD Lab Routine Encounter for long-term current use of medication Expected: 01/30/2024 (Approximate), Expires: 04/30/2024 [facility] Work Phone: Comment on above: Expected: 01/30/2024 (Approximate), Expires: 04/30/2024 Start: 01-30-2024 End: 04-30-2024 Comprehensive metabolic 2000 panel - Serum or Plasma COMP METABOLIC PANEL Lab Routine Essential hypertension Encounter for long-term current use of medication Expected: 01/30/2024 (Approximate), Expires: 04/30/2024 [facility] Work Phone: Comment on above: Expected: 01/30/2024 (Approximate), Expires: 04/30/2024 Start: 01-30-2024 Diabetic foot examination Diabetic F oot Exam 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, with long-term current use of insulin (HCC) Encounter for long-term current use of medication Expected: 01/30/2024 (Approximate), Expires: 04/30/2024 [facility] Work Phone: Comment on above: Expected: 01/30/2024 (Approximate), Expires: 04/30/2024 Start: 01-30-2024 End: 04-30-2024 Pyridoxine [Mass/volume] in Serum or Plasma VITAMIN B6/PYRIDOXIN Lab Routine Vitamin B6 deficiency Encounter for long-term current use of medication Expected: 01/30/2024 (Approximate), Expires: 04/30/2024 [facility] Work Phone: Comment on above: Expected: 01/30/2024 (Approximate), Expires: 04/30/2024 Start: 01-27-2024 Hepatitis B surface antibody level LDL CHOLESTEROL [facility] Start: 12-27-2023 Hemoglobin A1c measurement HbA1C [facility] Start: 11-27-2023 Hepb vaccine adult 3 dose schedule for im use HEP B VACCINE, 3-DOSE, AGE 20+ YR (ENGERIX-B, RECOMBIVAX HB) Immunization/Injection Routine Encounter for immunization Expected: 11/27/2023 [facility] Work Phone: Comment on above: Expected: 11/27/2023 Start: 10-18-2023 BP CONTROLLED (<130/80) BP CONTROLLE D (<130/80) [facility] Start: 10-05-2023 Glaucoma screening Dilated Retinal E xam [facility] Start: 10-05-2023 Hepatitis C antibody , confirmatory test DILATED RETINAL EXAM 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 Start: 09-28-2023 End: 12-28-2023 25-hydroxyvitamin D3 [Mass/volume] in Serum or Plasma [facility] Work Phone: Comment on above: Expected: 09/28/2023 , Expires: 12/28/2023 Start: 09-28-2023 End: 12-28-2023 Lipid 1996 panel - Serum or Plasma [facility] Work Phone: Comment on above: Expected: 09/28/2023 , Expires: 12/28/2023 Start: 08-13-2023 Advance Directive Discussion Advance Directive Discussion [facility] Start: 08-13-2023 Behavioral Health Screening Behavioral Health Screening [facility] Start: 08-13-2023 Depression Assessment Depression Ass essment [facility] Start: 08-02-2023 Hepatitis B screening URINE AL BUMIN:CREATININE RATIO [facility] Start: 08-02-2023 Hepatitis B surface antibody level LDL CHOLESTEROL [facility] Start: 07-28-2023 Hemoglobin A1c measurement HbA1C [facility] Start: 07-28-2023 Hemoglobin A1c/Hemoglobin.total in Blood HBA1C 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, with long-term current use of insulin (HCC) Expected: 07/13/2023, Expires: 09/12/2023 [facility] Work Phone: Comment on above: Expected: 07/13/2023 , Expires: 09/12/2023 Start: 07-13-2023 End: 09-12-2023 CBC panel - Blood by Automated count CBC Lab Routine Essential hypertension Expected: 07/13/2023, Expires: 09/12/2023 [facility] Work Phone: Comment on above: Expected: 07/13/2023 , Expires: 09/12/2023 Start: 07-13-2023 End: 09-12-2023 Comprehensive metabolic 2000 panel - Serum or Plasma COMP METABOLIC PANEL Lab Routine Essential hypertension 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, with long-term current use of insulin (HCC) Expected: 07/13/2023, Expires: 09/12/2023 [facility] Work Phone: Comment on above: Expected: 07/13/2023 , Expires: 09/12/2023 Start: 07-13-2023 End: 09-12-2023 Hemoglobin A1c in Blood HGB A1C Lab Routine 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, with long-term current use of insulin (HCC) Expected: 07/13/2023, Expires: 09/12/2023 [facility] Work Phone: Comment on above: Expected: 07/13/2023 , Expires: 09/12/2023 Start: 07-13-2023 End: 09-12-2023 Lipid 1996 panel - Serum or Plasma LIPID PANEL BASIC Lab Routine Hyperlipidemia, unspecified hyperlipidemia type Expected: 07/13/2023, Expires: 09/12/2023 [facility] Work Phone: Comment on above: Expected: 07/13/2023 , Expires: 09/12/2023 Start: 07-13-2023 End: 09-12-2023 Pyridoxine [Mass/volume] in Serum or Plasma VITAMIN B6/PYRIDOXIN Lab Routine Vitamin B6 deficiency Expected: 07/13/2023, Expires: 09/12/2023 [facility] Work Phone: Comment on above: Expected: 07/13/2023 , Expires: 09/12/2023 Start: 07-12-2023 Blood chemistry [facility] Start: 07-05-2023 Blood chemistry [facility] Start: 07-01-2023 Hepb vaccine adult 3 dose schedule for im use HEP B VACCINE, 3-DOSE, AGE 20+ YR (ENGERIX-B, RECOMBIVAX HB) Immunization/Injection Routine Encounter for immunization Expected: 07/01/2023 [facility] Work Phone: Comment on above: Expected: 07/01/2023 Start: 06-28-2023 Blood chemistry [facility] Start: 06-26-2023 Patient discharge [facility] Start: 06-25-2023 Development of care plan [facility] Start: 06-25-2023 [facility] Start: 06-22-2023 Referral to service [facility] Start: 06-21-2023 Blood chemistry [facility] Start: 06-14-2023 [facility] Start: 06-14-2023 Speech therapy assessment [facility] Start: 06-14-2023 Development of care plan [facility] Start: 06-14-2023 Developing a treatme nt plan [facility] Start: 06-14-2023 Application of device [facility] Start: 06-13-2023 Admission procedure [facility] Start: 06-13-2023 Measuring intake and output [facility] Start: 06-13-2023 Patient referral to dietitian [facility] Start: 06-13-2023 Referral to occupati onal therapist [facility] Start: 06-13-2023 Referral to service [facility] Start: 06-13-2023 Verification routine [facility] Start: 06-13-2023 Vital signs measurements [facility] Start: 06-13-2023 [facility] Start: 06-13-2023 Patient discharge [facility] Start: 06-11-2023 Blood chemistry [facility] Start: 06-10-2023 Following clinical pathway protocol [facility] Start: 06-10-2023 Assessment of risk o f venous thromboembolism [facility] Start: 06-10-2023 Cardiac monitoring [facility] Start: 06-10-2023 Care regimes management [facility] Start: 06-10-2023 Catheterization of vein [facility] Start: 06-10-2023 Continuous pulse oximetry [facility] Start: 06-10-2023 Inhalation therapy procedure [facility] Start: 06-10-2023 Insertion of cathete r into peripheral vein [facility] Start: 06-10-2023 Notification of physician [facility] Start: 06-10-2023 Oxygen therapy [facility] Start: 06-10-2023 Providing care accor ding to standard [facility] Start: 06-10-2023 Referral to occupati onal therapist [facility] Start: 06-10-2023 Referral to service [facility] Start: 06-10-2023 Verification routine [facility] Start: 06-10-2023 Admission procedure [facility] Start: 06-10-2023 Blood culture [facility] Start: 06-10-2023 End: 06-10-2023 [facility] Start: 06-10-2023 Bacteria identified in Blood by Culture Blood Culture [facility] Start: 06-10-2023 Bacteria identified in Urine by Culture Urine Culture [facility] Start: 06-10-2023 Patient referral to dietitian [facility] Start: 04-13-2023 Covid-19 Vaccine () Covid-19 Vaccine () [facility] Start: 04-13-2023 Influenza vaccination INFLUENZA (#1) [facility] Start: 03-31-2023 ANNUAL PCP TEAM PRACTICE ADVISOR ALEXANDER DISEASE VISIT ANNUAL PCP TEAM CHRONIC DISEASE VISIT [facility] Start: 03-31-2023 BP CONTROLLED (<130/80) BP CONTROLLE D (<130/80) [facility] Start: 03-31-2023 Urine microalbumin profile DTAP,TDAP,TD (2 - Td or Tdap) [facility] Comment on above: Postponed from 03/22 (Declined at this time) Start: 01-31-2023 Hemoglobin A1c/Hemoglobin.total in Blood HBA1C 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, with long-term current use of insulin (HCC) Expected: 01/25/2023, Expires: 03/27/2023 [facility] Work Phone: Comment on above: Expected: 01/25/2023 , Expires: 03/27/2023 Start: 01-25-2023 End: 03-27-2023 CBC W Auto Differential panel - Blood CBC + DIFF Lab Routine Vitamin D deficiency Expected: 01/25/2023, Expires: 03/27/2023 [facility] Work Phone: Comment on above: Expected: 01/25/2023 , Expires: 03/27/2023 Start: 01-25-2023 End: 03-27-2023 Comprehensive metabolic 2000 panel - Serum or Plasma COMP METABOLIC PANEL Lab Routine 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, with long-term current use of insulin (HCC) Expected: 01/25/2023, Expires: 03/27/2023 [facility] Work Phone: Comment on above: Expected: 01/25/2023 , Expires: 03/27/2023 Start: 01-25-2023 End: 03-27-2023 Hemoglobin A1c in Blood HGB A1C Lab Routine 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, with long-term current use of insulin (HCC) Expected: 01/25/2023, Expires: 03/27/2023 [facility] Work Phone: Comment on above: Expected: 01/25/2023 , Expires: 03/27/2023 Start: 01-25-2023 End: 03-27-2023 Lipid 1996 panel - Serum or Plasma LIPID PANEL BASIC Lab Routine Hyperlipidemia, unspecified hyperlipidemia type Expected: 01/25/2023, Expires: 03/27/2023 [facility] Work Phone: Comment on above: Expected: 01/25/2023 , Expires: 03/27/2023 Start: 01-25-2023 End: 03-27-2023 Pyridoxine [Mass/volume] in Serum or Plasma VITAMIN B6/PYRIDOXIN Lab Routine Vitamin D deficiency Expected: 01/25/2023, Expires: 03/27/2023 [facility] Work Phone: Comment on above: Expected: 01/25/2023 , Expires: 03/27/2023 Start: 12-27-2022 BP CONTROLLED (<130/80) BP CONTROLLE D (<130/80) [facility] Start: 11-22-2022 ANNUAL PCP TEAM PRACTICE ADVISOR ALEXANDER DISEASE VISIT ANNUAL PCP TEAM CHRONIC DISEASE VISIT [facility] Start: 11-22-2022 BP CONTROLLED (<130/80) BP CONTROLLE D (<130/80) [facility] Start: 10-06-2022 COVID-19 VACCINE (6 - Moderna series) COVID-19 VACCINE (6 - Moderna series) [facility] Start: 10-04-2022 Hepatitis C antibody , confirmatory test DILATED RETINAL EXAM [facility] Start: 09-27-2022 Hemoglobin A1c/Hemoglobin.total in Blood HBA1C [facility] Start: 08-13-2022 ADVANCE DIRECTIVE DISCUSSION ADVANCE DIRECTIVE DISCUSSION [facility] Start: 08-13-2022 DEPRESSION ASSESSMENT DEPRESSION ASS ESSMENT [facility] Start: 08-02-2022 End: 10-02-2022 25-hydroxyvitamin D3 [Mass/volume] in Serum or Plasma [facility] Work Phone: Comment on above: Expected: 08/02/2022 , Expires: 10/02/2022 Start: 08-02-2022 End: 10-02-2022 ALBUMIN/CREAT RATIO RND UR [facility] Work Phone: Comment on above: Expected: 08/02/2022 , Expires: 10/02/2022 Start: 08-02-2022 End: 10-02-2022 Hemoglobin A1c in Blood [facility] Work Phone: Comment on above: Expected: 08/02/2022 , Expires: 10/02/2022 Start: 08-02-2022 End: 10-02-2022 Lipid 1996 panel - Serum or Plasma [facility] Work Phone: Comment on above: Expected: 08/02/2022 , Expires: 10/02/2022 Start: 08-02-2022 End: 10-02-2022 Pyridoxine [Mass/volume] in Serum or Plasma [facility] Work Phone: Comment on above: Expected: 08/02/2022 , Expires: 10/02/2022 Start: 05-16-2022 End: 05-30-2022 Influenza virus A and B RNA and SARS-CoV-2 (COVID-19) N gene panel - Respiratory specimen by JOANNA with probe detection COVID WITH FLUA+B, ROUTINE Microbiology Routine Suspected COVID-19 virus infection Expected: 05/16/2022, Expires: 05/30/2022 [facility] Work Phone: Comment on above: Expected: 05/16/2022 , Expires: 05/30/2022 Start: 04-13-2022 Influenza vaccination INFLUENZA (#1) [facility] Start: 03-15-2022 COVID-19 VACCINE (5 - Booster for Moderna series) COVID-19 VACCINE (5 - Booster for Moderna series) [facility] Start: 03-01-2022 3 comp foot exam completed DIABETIC FOOT EXAM [facility] Start: 03-01-2022 Urine microalbumin profile DTAP,TDAP,TD (2 - Td or Tdap) [facility] Comment on above: Postponed from 03/22 (Declined at this time) Start: 01-16-2022 Hemoglobin A1c/Hemoglobin.total in Blood HBA1C [facility] Start: 11-29-2021 Adult depression screening assessment DEPRESSION SCREENING [facility] Start: 11-25-2021 Hepatitis B screening URINE AL BUMIN:CREATININE RATIO [facility] Start: 11-23-2021 Hepatitis B surface antibody level [facility] Start: 10-10-2021 COVID-19 VACCINE (4 - Booster for Moderna series) COVID-19 VACCINE (4 - Booster for Moderna series) [facility] Start: 08-13-2021 DEPRESSION ASSESSMENT DEPRESSION ASS ESSMENT [facility] Start: 04-25-2020 BP CONTROLLED (<130/80) BP CONTROLLE D (<130/80) [facility] Start: 2017 RSV Vaccine (1 - 1-d ose 75+ series) RSV Vaccine (1 - 1-dose 75+ series) [facility] Start: 03-22-2016 Urine microalbumin profile [facility] Start: 04-13-2007 Medicare Annual Well ness Visit Medicare Annual Wellness Visit [facility] Start: 2002 Hepatitis B Vaccine (1 of 3 - Risk 3-dose series) Hepatitis B Vaccine (1 of 3 - Risk 3-dose series) [facility] Start: 2002 RSV Vaccine (1 - 1-d ose 60+ series) RSV Vaccine (1 - 1-dose 60+ series) [facility] Start: 1960 Depression Screening Depression Scre ening [facility] Acetone [Presence] i n Serum or Plasma [facility] Anion gap measurement [facility] Anion gap measurement [facility] [facility] Anion gap measurement [facility] Anion gap measurement [facility] Anion gap measurement [facility] Bacteria identified in Urine by Culture URINE CULTURE Microbiology Routine Urinary frequency Ordered: 12/09/2023 [facility] Work Phone: Comment on above: Ordered: 12/09/2023 End: 11-22-2022 Basic metabolic 2000 panel - Serum or Plasma BASIC METABOLIC PNL Lab Routine Encounter for long-term current use of medication Once per month for 12 Occurrences starting 11/22/2021 until 11/22/2022 [facility] Work Phone: Comment on above: Once per month for 1 2 Occurrences starting 11/22/2021 until 11/22/2022 BUN/Creatinine ratio [facility] BUN/Creatinine ratio [facility] BUN/Creatinine ratio [facility] BUN/Creatinine ratio [facility] BUN/Creatinine ratio [facility] Calcium [Mass/volume ] in Serum or Plasma [facility] Calcium [Mass/volume ] in Serum or Plasma [facility] Calcium [Mass/volume ] in Serum or Plasma [facility] Calcium [Mass/volume ] in Serum or Plasma [facility] Calcium [Mass/volume ] in Serum or Plasma [facility] Carbon dioxide, tota l [Moles/volume] in Serum or Plasma [facility] Carbon dioxide, tota l [Moles/volume] in Serum or Plasma [facility] Carbon dioxide, tota l [Moles/volume] in Serum or Plasma [facility] Carbon dioxide, tota l [Moles/volume] in Serum or Plasma [facility] Carbon dioxide, tota l [Moles/volume] in Serum or Plasma [facility] Chloride [Moles/volu me] in Serum or Plasma [facility] Chloride [Moles/volu me] in Serum or Plasma [facility] Chloride [Moles/volu me] in Serum or Plasma [facility] Chloride [Moles/volu me] in Serum or Plasma [facility] Chloride [Moles/volu me] in Serum or Plasma [facility] Creatine kinase [Enzymatic activity/volume] in Serum or Plasma [facility] Creatinine [Moles/vo lume] in Serum or Plasma [facility] Creatinine [Moles/vo lume] in Serum or Plasma [facility] Creatinine [Moles/vo lume] in Serum or Plasma [facility] Creatinine [Moles/vo lume] in Serum or Plasma [facility] Creatinine [Moles/vo lume] in Serum or Plasma [facility] ECG COMPLETE ECG COMPLETE ECG 01/31/2024 11:04 AM EDT [facility] End: 06-04-2024 EGD DIAGNOSTIC EGD DIAGNOSTIC Endoscopy Routine 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 1 Occurrences starting 06/04/2023 until 06/04/2024 [facility] Work Phone: Comment on above: 1 Occurrences starti ng 06/04/2023 until 06/04/2024 Glucose [Mass/volume ] in Serum or Plasma [facility] Glucose [Mass/volume ] in Serum or Plasma [facility] Glucose [Mass/volume ] in Serum or Plasma [facility] Glucose [Mass/volume ] in Serum or Plasma [facility] Glucose [Mass/volume ] in Serum or Plasma [facility] Hematocrit [Volume Fraction] of Blood [facility] Hematocrit [Volume Fraction] of Blood [facility] Hematocrit [Volume Fraction] of Blood [facility] Hematocrit [Volume Fraction] of Blood [facility] Hematocrit [Volume Fraction] of Blood [facility] Hemoglobin [Mass/vol ume] in Blood [facility] Hemoglobin [Mass/vol ume] in Blood [facility] Hemoglobin [Mass/vol ume] in Blood [facility] Hemoglobin [Mass/vol ume] in Blood [facility] Hemoglobin [Mass/vol ume] in Blood [facility] Hepb vaccine adult 3 dose schedule for im use HEP B VACCINE, 3-DOSE, AGE 20+ YR (ENGERIX-B, RECOMBIVAX HB) Immunization/Injection Routine Encounter for immunization 1 Occurrences starting 05/31/2023 [facility] Work Phone: Comment on above: 1 Occurrences starti ng 05/31/2023 Leukocytes [#/volume ] in Blood [facility] Leukocytes [#/volume ] in Blood [facility] Leukocytes [#/volume ] in Blood [facility] Leukocytes [#/volume ] in Blood [facility] Leukocytes [#/volume ] in Blood [facility] Mean corpuscular hemoglobin concentration determination [facility] Mean corpuscular hemoglobin concentration determination [facility] Mean corpuscular hemoglobin concentration determination [facility] Mean corpuscular hemoglobin concentration determination [facility] Mean corpuscular hemoglobin concentration determination [facility] Mean corpuscular hemoglobin determination [facility] Mean corpuscular hemoglobin determination [facility] Mean corpuscular hemoglobin determination [facility] Mean corpuscular hemoglobin determination [facility] Mean corpuscular hemoglobin determination [facility] Measurement of renal function [facility] Measurement of renal function [facility] Measurement of renal function [facility] Measurement of renal function [facility] Measurement of renal function [facility] MR Cervical spine [facility] Neutrophil count [facility] Neutrophil count [facility] Neutrophil count [facility] Neutrophil count [facility] Neutrophil count [facility] Neutrophil percent differential count [facility] Neutrophil percent differential count [facility] Neutrophil percent differential count [facility] Neutrophil percent differential count [facility] Neutrophil percent differential count [facility] Patient referral [facility] Work Phone: [employer] COVI D-19 VACCINE ( SEASON) AGE 12+ YR PFIZER-BIONTECH COVID-19 VACCINE ( SEASON) AGE 12+ YR Immunization/Injection Routine Encounter for immunization 1 Occurrences starting 05/31/2023 [facility] Work Phone: Comment on above: 1 Occurrences starti ng 05/31/2023 Platelets [#/volume] in Blood [facility] Platelets [#/volume] in Blood [facility] Platelets [#/volume] in Blood [facility] Platelets [#/volume] in Blood [facility] Platelets [#/volume] in Blood [facility] Potassium [Moles/vol ume] in Serum or Plasma [facility] Potassium [Moles/vol ume] in Serum or Plasma [facility] Potassium [Moles/vol ume] in Serum or Plasma [facility] Potassium [Moles/vol ume] in Serum or Plasma [facility] Potassium [Moles/vol ume] in Serum or Plasma [facility] Red blood cell count [facility] Red blood cell count [facility] Red blood cell count [facility] Red blood cell count [facility] Red blood cell count [facility] Red cell distributio n width determination [facility] Red cell distributio n width determination [facility] Red cell distributio n width determination [facility] Red cell distributio n width determination [facility] Red cell distributio n width determination [facility] Sodium [Moles/volume ] in Serum or Plasma [facility] Sodium [Moles/volume ] in Serum or Plasma [facility] Sodium [Moles/volume ] in Serum or Plasma [facility] Sodium [Moles/volume ] in Serum or Plasma [facility] Sodium [Moles/volume ] in Serum or Plasma [facility] End: 01-30-2025 STRESS ECHO TREADMILL STRESS ECHO TREADMILL Cardiology Routine Chest pain, unspecified type 1 Occurrences starting 01/31/2024 until 01/30/2025 [facility] Work Phone: Comment on above: 1 Occurrences starti ng 01/31/2024 until 01/30/2025 SURGICAL PATHOLOGY [facility] Work Phone: Comment on above: Release Upon Orderin g for 1 Occurrences starting 12/21/2021, 1 completed SURGICAL PATHOLOGY [facility] Work Phone: Comment on above: Release Upon Orderin g for 1 Occurrences starting 06/06/2023, 1 completed Urea nitrogen [Mass/volume] in Serum or Plasma [facility] Urea nitrogen [Mass/volume] in Serum or Plasma [facility] Urea nitrogen [Mass/volume] in Serum or Plasma [facility] Urea nitrogen [Mass/volume] in Serum or Plasma [facility] Urea nitrogen [Mass/volume] in Serum or Plasma [facility] End: 03-01-2025 US Carotid arteries - bilateral US CAROTID BILATERAL Radiology Routine Lightheadedness Syncope, unspecified syncope type 1 Occurrences starting 01/31/2024 until 03/01/[address] [facility] Comment on above: 1 Occurrences starti ng 01/31/2024 until 03/01/2025 End: 01-30-2025 US Carotid arteries - bilateral US CAROTID ARTERIES [facility] Lab Routine Lightheadedness Syncope, unspecified syncope type 1 Occurrences starting 01/31/2024 until 01/30/[address] [facility] Comment on above: 1 Occurrences starti ng 01/31/2024 until 01/30/2025 [facility] Immunizations Immunization Date Immunization Notes Care Provider [facility] 06-10-2024 influenza, high dose seasonal, preservative-free Ellen Gonzalez RN Work Phone: [facility] 06-10-2024 influenza virus vacc ine, unspecified formulation Selam Shepard MA [facility] 05-29-2024 tetanus immune globulin Venus Gonzalez RN Work Phone: [facility] 05-31-2023 influenza (HD-IIV4) vaccine, age 65+ yr, high dose, quadrivalent, PF (FLUZONE HIGH-DOSE) Clarence Berry APRN.SENIOR PATIENT ACCOUNT REPRESENTATIVE Work Phone: [facility] Work Phone: 05-31-2023 influenza virus vacc ine, unspecified formulation Martin Munguia COMMERCIAL ACCOUNT EXECUTIVE.[employer] Work Phone: [facility] 06-05-2022 Kurt Nguyễn Bivale nt Booster Dr. Alicia Blount Work Phone: [facility] 05-02-2022 influenza, high-dose , quadrivalent vaccine (FLUZONE HIGH DOSE QUADRIVALENT) Clarence Berry APRN.SENIOR PATIENT ACCOUNT REPRESENTATIVE Work Phone: [facility] 01-18-2022 Covid (Moderna) Dr. Alicia rothman Work Phone: [facility] 06-17-2021 zoster vaccine recombinant Alicia Blount MD Work Phone: [facility] 06-09-2021 COVID-19 vaccine, fu ll dose (MODERNA) Alicia Blount MD Work Phone: [facility] 05-25-2021 influenza, high dose seasonal, preservative-free Alicia Blount MD Work Phone: [facility] 03-10-2021 zoster vaccine recombinant Alicia Blount MD Work Phone: [facility] 10-20-2020 COVID-19 vaccine, fu ll dose (MODERNA) Alicia Blount MD Work Phone: [facility] 09-23-2020 COVID-19 vaccine, fu ll dose (MODERNA) Alciia Blount MD Work Phone: [facility] 07-26-2020 pneumococcal polysaccharide vaccine, 23 valent Alicia Blount MD Work Phone: [facility] 04-15-2020 influenza, injectabl e, quadrivalent, preservative free Dr. Alicia Blount Work Phone: [facility] 04-15-2020 influenza, seasonal, injectable Alicia Blount MD Work Phone: [facility] 04-25-2019 influenza, high dose seasonal, preservative-free Alicia Blount MD Work Phone: [facility] Work Phone: 04-20-2018 influenza, high dose seasonal, preservative-free Alicia Blount MD Work Phone: [facility] 05-17-2017 influenza, high dose seasonal, preservative-free Alicia Blount MD Work Phone: [facility] Work Phone: 05-11-2016 influenza, high dose seasonal, preservative-free Alicia Blount MD Work Phone: [facility] 05-12-2015 influenza, high dose seasonal, preservative-free Alicia Blount MD Work Phone: [facility] 09-07-2014 pneumococcal conjuga te vaccine, 13 valent Alicia Blount MD Work Phone: [facility] 05-13-2014 influenza, injectabl e, quadrivalent, preservative free Dr. Alicia Blount Work Phone: [facility] 05-13-2014 influenza, seasonal, injectable Alicia Blount MD Work Phone: [facility] 05-17-2013 influenza virus vacc ine, unspecified formulation Alicia Blount MD Work Phone: [facility] Work Phone: 05-18-2012 influenza virus vacc yana, unspecified formulation Alicia Blount MD Work Phone: [facility] Work Phone: 06-03-2011 influenza virus vacc ine, unspecified formulation Alicia Blount MD Work Phone: [facility] Work Phone: 05-03-2010 influenza virus vacc ine, unspecified formulation Alicia Blount MD Work Phone: [facility] Work Phone: 05-20-2009 influenza virus vacc ine, unspecified formulation Alicia Blount MD Work Phone: [facility] Work Phone: 05-13-2009 influenza virus vacc ine, unspecified formulation Alicia Blount MD Work Phone: [facility] Work Phone: 06-08-2008 influenza virus vacc ine, unspecified formulation Alicia Blount MD Work Phone: [facility] 01-08-2008 zoster vaccine, live Alicia munoz MD Work Phone: [facility] Work Phone: 09-05-2007 pneumococcal polysaccharide vaccine, 23 valent Alicia Blount MD Work Phone: [facility] Work Phone: 06-06-2007 influenza virus vacc ine, unspecified formulation Alicia Blount MD Work Phone: [facility] Work Phone: 06-19-2006 influenza virus vacc ine, unspecified formulation Alicia Blount MD Work Phone: [facility] Work Phone: 03-22-2006 tetanus toxoid, redu chuck diphtheria toxoid, and acellular pertussis vaccine, adsorbed Alicia Blount MD Work Phone: [facility] 06-08-2005 influenza virus vacc ine, unspecified formulation Alicia Blount MD Work Phone: [facility] Work Phone: Payers Date Payer Category Payer Self-pay [id number] 2015 Private Health Insurance HUMANA HUMANA MEDICARE SUPPLEMENT [id number] 2015-Present [phone] [address] [address] [place] [address] Indemnity [id number] 2015 Private Health Insurance [id number] .[id number] 2015 Private Health Insurance [id number] 2007 Medicare MEDICARE MEDICAR E A AND B [id number] 2007-Present [phone] [place] [address] Medicare [id number] .[id number] 2007 Medicare [id number] [id number] .[id number] 2007 Medicare [id number] Unknown [id number] 2.16.840.1.495972.3.579 .2.462 Unknown [id number] 2.16.840.1.593564.3.579 .2.462 Unknown [id number] 2.16.840.1.772686.3.579 .2.462 Unknown [id number] 2.16.840.1.301656.3.579 .2.462 Unknown [id number] 2.16.840.1.122775.3.579 .2.462 Unknown [id number] 2.16.840.1.184248.3.579 .2.462 Unknown [id number] 2.16.840.1.303461.3.579 .2.462 Unknown [id number] 2.16.840.1.022595.3.579 .2.462 Unknown [id number] 2.16.840.1.937743.3.579 .2.462 Unknown [id number] 2.16.840.1.537153.3.579 .2.462 Unknown [id number] 2.16.840.1.501847.3.579 .2.462 Unknown [id number] 2.16.840.1.319199.3.579 .2.462 Unknown [id number] 2.16.840.1.652084.3.579 .2.462 Unknown [id number] 2.16.840.1.841526.3.579 .2.462 Unknown [id number] 2.16.840.1.927531.3.579 .2.462 Unknown [id number] 2.16.840.1.090844.3.579 .2.462 Unknown [id number] 2.16.840.1.393869.3.579 .2.462 Unknown [id number] 2.16.840.1.654244.3.579 .2.462 Unknown [id number] 2.16.840.1.100458.3.579 .2.462 Unknown [id number] 2.16.840.1.430749.3.579 .2.462 Unknown [id number] 2.16.840.1.010010.3.579 .2.462 Unknown [id number] 2.16.840.1.644950.3.579 .2.462 Unknown [id number] 2.16.840.1.360840.3.579 .2.462 Unknown [id number] 2.16.840.1.073937.3.579 .2.462 Unknown [id number] 2.840.1.200929.3.579 .2.462 Unknown [id number] 2.840.1.000450.3.579 .2.462 Unknown [id number] 2.840.1.124884.3.579 .2.462 Unknown [id number] 2.840.1.815916.3.579 .2.462 Unknown [id number] 2.16840.1.447247.3.579 .2.462 Unknown [id number] 2.840.1.220252.3.579 .2.462 Unknown [id number] 2.16840.1.510668.3.579 .2.462 Unknown [id number] 2.16.840.1.452054.3.579 .2.462 Unknown [id number] 2.16.840.1.076067.3.579 .2.462 Unknown [id number] 2.16.840.1.983654.3.579 .2.462 Unknown [id number] 2.16840.1.069597.3.579 .2.462 Unknown [id number] 2.16.840.1.872138.3.579 .2.462 Unknown [id number] 2.16.840.1.459897.3.579 .2.462 Unknown [id number] 2.16.840.1.186779.3.579 .2.462 Unknown [id number] 2.16.840.1.161764.3.579 .2.462 Unknown [id number] 2.16.840.1.462538.3.579 .2.462 Unknown [id number] 2..840.1.406159.3.579 .2.462 Unknown [id number] 2.840.1.523663.3.579 .2.462 Unknown [id number] 2.840.1.300589.3.579 .2.462 Unknown [id number] 2.840.1.755098.3.579 .2.462 Unknown [id number] 2.840.1.693643.3.579 .2.462 Unknown [id number] 2.840.1.159262.3.579 .2.462 Unknown [id number] 2..840.1.569782.3.579 .2.462 Unknown [id number] 2.840.1.700308.3.579 .2.462 Unknown [id number] 2.840.1.792149.3.579 .2.462 Unknown [id number] 2.840.1.565179.3.579 .2.462 Unknown [id number] 2.840.1.012628.3.579 .2.462 Unknown [id number] 2.16.840.1.377408.3.579 .2.462 Unknown [id number] 2.16.840.1.276120.3.579 .2.462 Unknown [id number] 2.840.1.696917.3.579 .2.462 Unknown [id number] 2.840.1.534682.3.579 .2.462 Unknown [id number] 2.840.1.586876.3.579 .2.462 Unknown [id number] 2.840.1.678805.3.579 .2.462 Unknown [id number] 2.840.1.408328.3.579 .2.462 Unknown [id number] 2.840.1.754720.3.579 .2.462 Unknown [id number] .840.1.422278.3.579 .2.462 Unknown [id number] 2.840.1.007796.3.579 .2.462 Unknown [id number] 2.840.1.550113.3.579 .2.462 Unknown [id number] 2.840.1.315066.3.579 .2.462 Unknown [id number] .840.1.774468.3.579 .2.462 Unknown [id number] .840.1.120115.3.579 .2.462 Unknown [id number] 2.840.1.021401.3.579 .2.462 Unknown [id number] 2.840.1.134294.3.579 .2.462 Unknown [id number] .840.1.697835.3.579 .2.462 Unknown [id number] .840.1.880609.3.579 .2.462 Unknown [id number] 2.840.1.865498.3.579 .2.462 Unknown [id number] 2.840.1.113893.3.579 .2.462 Unknown [id number] 2.840.1.391949.3.579 .2.462 Unknown [id number] 2.840.1.162064.3.579 .2.462 Unknown [id number] 2.16.840.1.283560.3.579 .2.462 Unknown [id number] 2..840.1.435983.3.579 .2.462 Unknown [id number] 2.16.840.1.704516.3.579 .2.462 Social History Date Type Detail Facility Start: 02-10-2011 End: 05-02-2022 Tobacco smoking status NHIS Never smoked tobacco [facility] Start: 09-19-2021 End: 07-15-2024 Alcohol intake Current drinker of alcohol (finding) [facility] Start: 10-07-2014 History SDOH Alcohol Comment 2-3 drinks/years [facility] Start: 1940 Sex Assigned At Not on file C [facility] Start: 05-04-2021 End: 05-16-2022 Exposure to SARS-CoV-2 (event) Not sure [facility] Start: 02-10-2011 End: 05-02-2022 Tobacco use and exposure Smokeless tobacco non-user [facility] Start: 07-26-2022 End: 07-31-2023 Tobacco smoking status NHIS Unknown if ever smoked [facility] Start: 03-13-2017 Spouse/ Signif icant Other [facility] Start: 1940 Sex Assigned At Female W [facility] Start: 01-29-2023 End: 07-15-2024 History of Social function [facility] Work Phone: Start: 01-29-2023 End: 07-15-2024 Tobacco use panel [facility] Work Phone: Start: 07-14-2012 Adult Depression Screening Assessment [address] [facility] Work Phone: Medical Equipment Procedure Code Equipment Code Equipment Origin al Text Equipment Identifier Dates [id number], [id number], [id number], [id number], [id number], [id number], [id number] Start: 07-15-2014 End: 08-14-2023 Comment on above: Check blood sugars 2 x per day and as needed Dx: E11.9 insulin: yes Use 1 needle for eac h dose. 4x daily 1 Each twice daily. DX: 250.00 insulin Test blood sugar(s) 2 times daily. Dx: Type 2 DM - Controlled E11.9 , Insulin: Yes Micro-lancets to wor k with current meter - One touch. Sig: Test blood sugar(s) 2 times daily. Dx: Type 2 DM - Controlled E11.9 , Insulin: Yes Use one needle for e ach dose, 4 times daily. Dx: Type 2 DM - Controlled E11.9 Use one needle for e ach dose, 4 times daily. Dx: Type 2 DM - Controlled E11.9 Blood Sugar Diagnostic (Onetouch Verio Test Strips) strip Start: 05-17-2020 Pen Needle, Diabetic (Bd Ultra-Fine Micro Pen Needle) 32 gauge x 1/4 needle Start: 12-14-2021 Pen Needle, Diabetic (Bd Ultra-Fine Micro Pen Needle) 32 gauge x 1/4 needle Start: 03-15-2021 End: 12-14-2021 Blood Sugar Diagnostic (Onetouch Verio Test Strips) strip Start: 05-17-2020 Pen Needle, Diabetic (Bd Ultra-Fine Micro Pen Needle) 32 gauge x 1/4 needle Start: 12-14-2021 Pen Needle, Diabetic (Bd Ultra-Fine Micro Pen Needle) 32 gauge x 1/4 needle Start: 03-15-2021 End: 12-14-2021 Blood Sugar Diagnostic (Onetouch Verio Test Strips) strip Start: 05-17-2020 Pen Needle, Diabetic (Bd Ultra-Fine Micro Pen Needle) 32 gauge x 1/4 needle Start: 12-14-2021 Pen Needle, Diabetic (Bd Ultra-Fine Micro Pen Needle) 32 gauge x 1/4 needle Start: 03-15-2021 End: 12-14-2021 Blood Sugar Diagnostic (Onetouch Verio Test Strips) strip Start: 12-25-2022 Pen Needle, Diabetic (Bd Ultra-Fine Micro Pen Needle) 32 gauge x 1/4 needle Start: 12-14-2021 Blood Sugar Diagnostic (Onetouch Verio Test Strips) strip Start: 05-17-2020 End: 12-25-2022 Pen Needle, Diabetic (Bd Ultra-Fine Micro Pen Needle) 32 gauge x 1/4 needle Start: 03-15-2021 End: 12-14-2021 Blood Sugar Diagnostic (Onetouch Verio Test Strips) strip Start: 12-25-2022 Pen Needle, Diabetic (Bd Ultra-Fine Micro Pen Needle) 32 gauge x 1/4 needle Start: 12-14-2021 Blood Sugar Diagnostic (Onetouch Verio Test Strips) strip Start: 05-17-2020 End: 12-25-2022 Pen Needle, Diabetic (Bd Ultra-Fine Micro Pen Needle) 32 gauge x 1/4 needle Start: 03-15-2021 End: 12-14-2021 Blood Sugar Diagnostic (Onetouch Verio Test Strips) strip Start: 12-25-2022 Pen Needle, Diabetic (Bd Ultra-Fine Micro Pen Needle) 32 gauge x 1/4 needle Start: 12-14-2021 Blood Sugar Diagnostic (Onetouch Verio Test Strips) strip Start: 05-17-2020 End: 12-25-2022 Pen Needle, Diabetic (Bd Ultra-Fine Micro Pen Needle) 32 gauge x 1/4 needle Start: 03-15-2021 End: 12-14-2021 Blood Sugar Diagnostic (Onetouch Verio Test Strips) strip Start: 12-25-2022 Pen Needle, Diabetic (Bd Ultra-Fine Micro Pen Needle) 32 gauge x 1/4 needle Start: 12-14-2021 Blood Sugar Diagnostic (Onetouch Verio Test Strips) strip Start: 05-17-2020 End: 12-25-2022 Pen Needle, Diabetic (Bd Ultra-Fine Micro Pen Needle) 32 gauge x 1/4 needle Start: 03-15-2021 End: 12-14-2021 Goals Date Patient Goal Desired Activity /State Functional Status Date Assessment Result Facility 06-26-2023 Functional status Bedrest [facility] Work Phone: 06-19-2023 Functional status Chair [facility] Work Phone: 06-18-2023 Functional status Standard Walker [facility] Work Phone: 06-17-2023 Functional status Bedrest [facility] Work Phone: 06-13-2023 Functional status Chair;Bathroom Privileg e [facility] Work Phone: 03-18-2015 Are you deaf, or do you have serious difficulty hearing No 03/18/2015 11:55 AM EDT Harlan Zarate LPN No [facility] 03-18-2015 Are you blind, or do you have serious difficulty seeing, even when wearing glasses No 03/18/2015 11:55 AM EDT Harlan Zarate LPN No [facility] 03-18-2015 Do you have serious difficulty walking or climbing stairs No 03/18/2015 11:55 AM EDT Harlan Zarate LPN No [facility] 03-18-2015 Do you have difficul ty dressing or bathing No 03/18/2015 11:55 AM EDT Harlan Zarate LPN No [facility] 03-18-2015 Because of a physica l, mental, or emotional condition, do you have difficulty doing errands alone such as visiting a physician's office or shopping No 03/18/2015 11:55 AM EDT Harlan Zarate LPN No [facility] Mental Status Date Assessment Result Facility 06-26-2023 Cognitive function Voice/Name;Touch/Shaki ng [facility] Work Phone: 06-22-2023 Cognitive function Appropriate;Cooperativ e [facility] Work Phone: 06-18-2023 Cognitive function Voice/Name [facility] Work Phone: 06-17-2023 Cognitive function Voice/Name [facility] Work Phone: 06-13-2023 Cognitive function Voice/Name [facility] Work Phone: 06-10-2023 Cognitive function Level Of Cons ciousness Awake;Alert;Appropriate;Fol lows Commands [facility] Work Phone: 03-18-2015 Because of a physica l, mental, or emotional condition, do you have serious difficulty concentrating, remembering, or making decisions No 03/18/2015 11:55 AM EDT Harlan Zarate LPN No [facility] Clinical Notes 11-14-2014 to 03-26-2025 Selam Shepard MA - 03/26/2025 9:44 AM Selam Lou MA - 02/23/2025 8:26 AM Selam Lou MA - 01/22/2025 10:22 AM Selam Luo MA - 12/23/2024 8:37 AM EDTPatient Instructions Note Date & Type Note Facility 03-26-2025 Note HNO ID: [id number] Author: SELAM SHEPARD MA Service: ? Author Type: Sales Executive Type: Progress Notes Filed: 03/26/2025 09:47 Note Text: POPULATION HEALTH NAVIGATION OUTREACH Action/FYI Contacted patient to schedule HCC care gaps and health maintenance. 1st attempt: Left message with my direct number Topic Due (Y or N) Comments Annual Wellness Exam Yes PCP Follow up No Colorectal Cancer Screening No A1C Yes HTN/Controlling BP Yes HCC Yes Updated appointment notes No Reason for Outreach Care Gap/HCC or Scheduling Wellness Visits Care Gaps due: Medicare Annual Wellness Visit Controlling Blood Pressure HBA1C Patient Contacted: Unable or unnecessary to reach patient: Left message HCC related Navigation Signature: Selam Shepard MA March 26, 2025 9:44 AM [facility] 03-26-2025 History of Presen t illness Narrative POPULATION HEALTH NAVIGATION OUTREACH Action/FYI Contacted patient to schedule HCC care gaps and health maintenance. 1st attempt: Left message with my direct number Topic Due (Y or N) Comments Annual Wellness Exam Yes PCP Follow up No Colorectal Cancer Screening No A1C Yes HTN/Controlling BP Yes HCC Yes Updated appointment notes No Reason for Outreach Care Gap/HCC or Scheduling Wellness Visits Care Gaps due: Medicare Annual Wellness Visit Controlling Blood Pressure HBA1C Patient Contacted: Unable or unnecessary to reach patient: Left message HCC related Navigation Signature: Selam Shepard MA March 26, 2025 9:44 AM documented in this encounter [facility] 03-26-2025 Note Patient Outreach (TONY TRUONG) ANA IVORY ([id number]) 1940 F Date Time Provider Department 03/26/25 SELAM SHEPARD During your visit today, we recorded the following information about you: Selam Shepard MA 03/26/2025 9:47 AM Signed POPULATION HEALTH NAVIGATION OUTREACH Action/FYI Contacted patient to schedule HCC care gaps and health maintenance. 1st attempt: Left message with my direct number Topic Due (Y or N) Comments Annual Wellness Exam Yes PCP Follow up No Colorectal Cancer Screening No A1C Yes HTN/Controlling BP Yes HCC Yes Updated appointment notes No Reason for Outreach Care Gap/HCC or Scheduling Wellness Visits Care Gaps due: Medicare Annual Wellness Visit Controlling Blood Pressure HBA1C Patient Contacted: Unable or unnecessary to reach patient: Left message HCC related Navigation Signature: Selam Shepard MA March 26, 2025 9:44 AM Allergies As of Date: 03/26/2025 Noted Allergy Reaction ADHESIVE TAPE (ROSINS) 08/31/2008 4 - Hives Comments: Rash around bandaid never been tested for latex allergy ASPIRIN 04/16/2018 15 - Contraindication-Medical [place]* Comments: GI bleed BONIVA (IBANDRONATE) 12/04/2008 8 - GI Upset Comments: Esophageal burning CARAFATE (SUCRALFATE) 04/24/2012 14 - Other: See Comments Comments: feels poorly CIPROFLOXACIN 12/01/2013 14 - Other: See Comments Comments: photosensitivity, dermatitis CODEINE 08/24/2005 8 - GI Upset IBUPROFEN 03/22/2006 8 - GI Upset IODINATED CONTRAST MEDIA 06/10/2023 11 - Vomiting IODINE 08/25/2008 11 - Vomiting LANSOPRAZOLE 11/01/2011 6 - Diarrhea MACROBID (NITROFURANTOIN MONOHYD/*11/22/2021 8 - GI Upset 10 - Anaphylaxis Comments: Headache, nausea, stomach pain METFORMIN 05/10/2011 6 - Diarrhea MICONAZOLE 12/29/2020 14 - Other: See Comments NEOSPORIN ([id number]*08/31/19 09 2 - Rash Comments: blisters PIOGLITAZONE 12/29/2020 16 - Unknown PROTONIX (PANTOPRAZOLE) 01/13/2010 6 - Diarrhea RELAFEN (NABUMETONE) 03/22/2006 8 - GI Upset 11 - Vomiting SHRIMP 12/21/2021 8 - GI Upset ACTOS (PIOGLITAZONE HCL) 12/03/2016 7 - Swelling Date Reviewed: 07/15/2024 Reviewed by: Edwige Reyes LPN - Fully Assessed Reason for Visit: Population Health Navigation Outreach [3910] Cmt: [place]/Workbench/ACO Prescriptions as of 03/26/2025 - SEMGLEE,INSULIN GLARG-YFGN,PEN 100 unit/mL (3 mL) insulin pen Inject 30 Units subcutaneously every morning. - insulin 75/25 lispro protamine-lispro units/mL (HUMALOG MIX 75-25,U-100,INSULN) 100 units/mL suspension 10 units TID and a sliding scale s-- he will get 1 units for every 50 points she is over 200. - ondansetron (ZOFRAN) 4 mg tablet Take 1 tablet by mouth every 8 hours as needed for nausea/vomiting. - VENTOLIN HFA 90 mcg/actuation inhaler Inhale 2 Puffs as instructed every 4 hours as needed for wheezing/shortness of breath. - amoxicillin-clavulanate potassium (AUGMENTIN) 875-125 mg per tablet Take 1 tablet by mouth two times a day. - LORazepam (ATIVAN) 1 mg tablet Take 0.5-1 tablets by mouth once daily as needed for up to 90 days. Patient should start on June 05, 2024. - metoprolol succinate ER (TOPROL XL) 200 mg 24 hr tablet Take 1 tablet by mouth once daily. - Acidophilus-Bif Animalis 10 billion cell cap Take 1 capsule by mouth once daily. - gabapentin (NEURONTIN) 300 mg capsule Take 1 capsule by mouth two times a day for 180 days. Morning and bedtime - cyanocobalamin 1,000 mcg/mL Inject intramuscularly once every month. - rosuvastatin (CRESTOR) 10 mg tablet Take 1 tablet by mouth daily at bedtime. As directed - esomeprazole (NEXIUM) 40 mg capsule Take 1 capsule by mouth daily at 6 am. - insulin aspart U-100 (NOVOLOG FLEXPEN U-100 INSULIN) 100 unit/mL (3 mL) Inject 28 Units subcutaneously daily with breakfast AND 28 Units daily with lunch AND 28 Units daily with dinner. Adjust as directed. (Dr. Genny Munguia refills) Also has SSI. - Insulin Rochelle, Disposable, (BD ULTRA-FINE FOZIA PEN NEEDLE) 32 gauge x 5/32 Use one needle for each dose, 4 times daily. 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 - Pyridoxine HCl 250 mg tablet DAILY - DULoxetine (CYMBALTA) 60 mg capsule Take 1 capsule by mouth daily at bedtime. - flash glucose scanning reader (FREESTYLE DONTRELL 2 READER) - flash glucose sensor (FREESTYLE DONTRELL 14 DAY SENSOR) kit - sertraline (ZOLOFT) 50 mg tablet Take 1 tablet by mouth once daily. - vibegron (GEMTESA) 75 mg tablet Take 75 mg by mouth once daily. - furosemide (LASIX) 20 mg tablet Take 1 tablet by mouth once daily. As directed for leg swelling - TOVIAZ 4 mg Tb24 extended release tablet Take 4 mg by mouth once daily. For 30 days - multivitamin-folic acid-biotin (QLBA-KGSR-LYUIB, HS-LZ-VVUQJG,) 400-2,000 mcg tab Take by mouth. - collagen, bovine, 100 % powd Apply t (more content not included)... [facility] 02-23-2025 Note HNO ID: [id number] Author: SELAM SHEPARD MA Service: ? Author Type: Sales Executive Type: Progress Notes Filed: 02/23/2025 08:26 Note Text: POPULATION HEALTH NAVIGATION OUTREACH Action/FYI Contacted patient to schedule HCC care gaps and health maintenance. 1st attempt: Left message with my direct number Topic Due (Y or N) Comments Annual Wellness Exam Yes PCP Follow up No Colorectal Cancer Screening No A1C Yes HTN/Controlling BP No HCC Yes Updated appointment notes No Reason for Outreach Care Gap/HCC or Scheduling Wellness Visits Care Gaps due: Medicare Annual Wellness Visit HBA1C Patient Contacted: Unable or unnecessary to reach patient: Left message HCC related Navigation Signature: Selam Shepard MA February 23, 2025 8:26 AM [facility] 02-23-2025 History of Presen t illness Narrative POPULATION HEALTH NAVIGATION OUTREACH Action/FYI Contacted patient to schedule HCC care gaps and health maintenance. 1st attempt: Left message with my direct number Topic Due (Y or N) Comments Annual Wellness Exam Yes PCP Follow up No Colorectal Cancer Screening No A1C Yes HTN/Controlling BP No HCC Yes Updated appointment notes No Reason for Outreach Care Gap/HCC or Scheduling Wellness Visits Care Gaps due: Medicare Annual Wellness Visit HBA1C Patient Contacted: Unable or unnecessary to reach patient: Left message HCC related Navigation Signature: Selam Shepard MA February 23, 2025 8:26 AM documented in this encounter [facility] 02-23-2025 Note Patient Outreach (NE TNAV) ANA IVORY ([id number]) 1940 F Date Time Provider Department 02/23/25 SELAM SHEPARD NETNAV During your visit today, we recorded the following information about you: Selam Shepard MA 02/23/2025 8:26 AM Signed POPULATION HEALTH NAVIGATION OUTREACH Action/FYI Contacted patient to schedule HCC care gaps and health maintenance. 1st attempt: Left message with my direct number Topic Due (Y or N) Comments Annual Wellness Exam Yes PCP Follow up No Colorectal Cancer Screening No A1C Yes HTN/Controlling BP No HCC Yes Updated appointment notes No Reason for Outreach Care Gap/HCC or Scheduling Wellness Visits Care Gaps due: Medicare Annual Wellness Visit HBA1C Patient Contacted: Unable or unnecessary to reach patient: Left message HCC related Navigation Signature: Selam Shepard MA February 23, 2025 8:26 AM Allergies As of Date: 02/23/2025 Noted Allergy Reaction ADHESIVE TAPE (ROSINS) 08/31/2008 4 - Hives Comments: Rash around bandaid never been tested for latex allergy ASPIRIN 04/16/2018 15 - Contraindication-Medical [place]* Comments: GI bleed BONIVA (IBANDRONATE) 12/04/2008 8 - GI Upset Comments: Esophageal burning CARAFATE (SUCRALFATE) 04/24/2012 14 - Other: See Comments Comments: feels poorly CIPROFLOXACIN 12/01/2013 14 - Other: See Comments Comments: photosensitivity, dermatitis CODEINE 08/24/2005 8 - GI Upset IBUPROFEN 03/22/2006 8 - GI Upset IODINATED CONTRAST MEDIA 06/10/2023 11 - Vomiting IODINE 08/25/2008 11 - Vomiting LANSOPRAZOLE 11/01/2011 6 - Diarrhea MACROBID (NITROFURANTOIN MONOHYD/*11/22/2021 8 - GI Upset 10 - Anaphylaxis Comments: Headache, nausea, stomach pain METFORMIN 05/10/2011 6 - Diarrhea MICONAZOLE 12/29/2020 14 - Other: See Comments NEOSPORIN ([id number]*08/31/19 09 2 - Rash Comments: blisters PIOGLITAZONE 12/29/2020 16 - Unknown PROTONIX (PANTOPRAZOLE) 01/13/2010 6 - Diarrhea RELAFEN (NABUMETONE) 03/22/2006 8 - GI Upset 11 - Vomiting SHRIMP 12/21/2021 8 - GI Upset ACTOS (PIOGLITAZONE HCL) 12/03/2016 7 - Swelling Date Reviewed: 07/15/2024 Reviewed by: Edwige Reyes LPN - Fully Assessed Reason for Visit: Population Health Navigation Outreach [3910] Cmt: [place]/ACO Prescriptions as of 02/23/2025 - SEMGLEE,INSULIN GLARG-YFGN,PEN 100 unit/mL (3 mL) insulin pen Inject 30 Units subcutaneously every morning. - insulin 75/25 lispro protamine-lispro units/mL (HUMALOG MIX 75-25,U-100,INSULN) 100 units/mL suspension 10 units TID and a sliding scale s-- he will get 1 units for every 50 points she is over 200. - ondansetron (ZOFRAN) 4 mg tablet Take 1 tablet by mouth every 8 hours as needed for nausea/vomiting. - VENTOLIN HFA 90 mcg/actuation inhaler Inhale 2 Puffs as instructed every 4 hours as needed for wheezing/shortness of breath. - amoxicillin-clavulanate potassium (AUGMENTIN) 875-125 mg per tablet Take 1 tablet by mouth two times a day. - LORazepam (ATIVAN) 1 mg tablet Take 0.5-1 tablets by mouth once daily as needed for up to 90 days. Patient should start on June 05, 2024. - metoprolol succinate ER (TOPROL XL) 200 mg 24 hr tablet Take 1 tablet by mouth once daily. - Acidophilus-Bif Animalis 10 billion cell cap Take 1 capsule by mouth once daily. - gabapentin (NEURONTIN) 300 mg capsule Take 1 capsule by mouth two times a day for 180 days. Morning and bedtime - cyanocobalamin 1,000 mcg/mL Inject intramuscularly once every month. - rosuvastatin (CRESTOR) 10 mg tablet Take 1 tablet by mouth daily at bedtime. As directed - esomeprazole (NEXIUM) 40 mg capsule Take 1 capsule by mouth daily at 6 am. - insulin aspart U-100 (NOVOLOG FLEXPEN U-100 INSULIN) 100 unit/mL (3 mL) Inject 28 Units subcutaneously daily with breakfast AND 28 Units daily with lunch AND 28 Units daily with dinner. Adjust as directed. (Dr. Genny Munguia refjere) Also has SSI. - Insulin Rochelle, Disposable, (BD ULTRA-FINE FOZIA PEN NEEDLE) 32 gauge x 5/32 Use one needle for each dose, 4 times daily. 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 - Pyridoxine HCl 250 mg tablet DAILY - DULoxetine (CYMBALTA) 60 mg capsule Take 1 capsule by mouth daily at bedtime. - flash glucose scanning reader (FREESTYLE DONTRELL 2 READER) - flash glucose sensor (FREESTYLE DONTRELL 14 DAY SENSOR) kit - sertraline (ZOLOFT) 50 mg tablet Take 1 tablet by mouth once daily. - vibegron (GEMTESA) 75 mg tablet Take 75 mg by mouth once daily. - furosemide (LASIX) 20 mg tablet Take 1 tablet by mouth once daily. As directed for leg swelling - TOVIAZ 4 mg Tb24 extended release tablet Take 4 mg by mouth once daily. For 30 days - multivitamin-folic acid-biotin (QFRY-NMIY-PDKLN, RU-XF-KEGGZJ,) 400-2,000 mcg tab Take by mouth. - collagen, bovine, 100 % powd Apply to affected area. - Cranberry-V (more content not included)... [facility] 01-22-2025 Note HNO ID: [id number] Author: SELAM SHEPARD MA Service: ? Author Type: Sales Executive Type: Progress Notes Filed: 01/22/2025 10:23 Note Text: POPULATION HEALTH NAVIGATION OUTREACH Action/FYI Contacted patient to schedule HCC care gaps and health maintenance. 1st attempt: Left message with my direct number Topic Due (Y or N) Comments Annual Wellness Exam Yes PCP Follow up Yes Due 10/07 Colorectal Cancer Screening No A1C Yes HTN/Controlling BP No HCC Yes Updated appointment notes No Reason for Outreach Care Gap/HCC or Scheduling Wellness Visits Care Gaps due: Medicare Annual Wellness Visit Follow-up Appointment HBA1C Patient Contacted: Unable or unnecessary to reach patient: Left message HCC related Navigation Signature: Selam Shepard MA January 22, 2025 10:22 AM [facility] 01-22-2025 History of Presen t illness Narrative POPULATION HEALTH NAVIGATION OUTREACH Action/FYI Contacted patient to schedule HCC care gaps and health maintenance. 1st attempt: Left message with my direct number Topic Due (Y or N) Comments Annual Wellness Exam Yes PCP Follow up Yes Due 10/07 Colorectal Cancer Screening No A1C Yes HTN/Controlling BP No HCC Yes Updated appointment notes No Reason for Outreach Care Gap/HCC or Scheduling Wellness Visits Care Gaps due: Medicare Annual Wellness Visit Follow-up Appointment HBA1C Patient Contacted: Unable or unnecessary to reach patient: Left message HCC related Navigation Signature: Selam Shepard MA January 22, 2025 10:22 AM documented in this encounter [facility] 01-22-2025 Note Patient Outreach (NE TNAV) ANA IVORY ([id number]) 1940 F Date Time Provider Department 01/22/25 SELAM SHEPARD During your visit today, we recorded the following information about you: Selam Shepard MA 01/22/2025 10:23 AM Signed POPULATION HEALTH NAVIGATION OUTREACH Action/FYI Contacted patient to schedule HCC care gaps and health maintenance. 1st attempt: Left message with my direct number Topic Due (Y or N) Comments Annual Wellness Exam Yes PCP Follow up Yes Due 10/07 Colorectal Cancer Screening No A1C Yes HTN/Controlling BP No HCC Yes Updated appointment notes No Reason for Outreach Care Gap/HCC or Scheduling Wellness Visits Care Gaps due: Medicare Annual Wellness Visit Follow-up Appointment HBA1C Patient Contacted: Unable or unnecessary to reach patient: Left message HCC related Navigation Signature: Selam Shepard MA January 22, 2025 10:22 AM Allergies As of Date: 01/22/2025 Noted Allergy Reaction ADHESIVE TAPE (ROSINS) 08/31/2008 4 - Hives Comments: Rash around bandaid never been tested for latex allergy ASPIRIN 04/16/2018 15 - Contraindication-Medical [place]* Comments: GI bleed BONIVA (IBANDRONATE) 12/04/2008 8 - GI Upset Comments: Esophageal burning CARAFATE (SUCRALFATE) 04/24/2012 14 - Other: See Comments Comments: feels poorly CIPROFLOXACIN 12/01/2013 14 - Other: See Comments Comments: photosensitivity, dermatitis CODEINE 08/24/2005 8 - GI Upset IBUPROFEN 03/22/2006 8 - GI Upset IODINATED CONTRAST MEDIA 06/10/2023 11 - Vomiting IODINE 08/25/2008 11 - Vomiting LANSOPRAZOLE 11/01/2011 6 - Diarrhea MACROBID (NITROFURANTOIN MONOHYD/*11/22/2021 8 - GI Upset 10 - Anaphylaxis Comments: Headache, nausea, stomach pain METFORMIN 05/10/2011 6 - Diarrhea MICONAZOLE 12/29/2020 14 - Other: See Comments NEOSPORIN ([id number]*08/31/19 09 2 - Rash Comments: blisters PIOGLITAZONE 12/29/2020 16 - Unknown PROTONIX (PANTOPRAZOLE) 01/13/2010 6 - Diarrhea RELAFEN (NABUMETONE) 03/22/2006 8 - GI Upset 11 - Vomiting SHRIMP 12/21/2021 8 - GI Upset ACTOS (PIOGLITAZONE HCL) 12/03/2016 7 - Swelling Date Reviewed: 07/15/2024 Reviewed by: Edwige Reyes LPN - Fully Assessed Reason for Visit: Population Health Navigation Outreach [3910] Cmt: [place]/Workbench/ACO Prescriptions as of 01/22/2025 - SEMGLEE,INSULIN GLARG-YFGN,PEN 100 unit/mL (3 mL) insulin pen Inject 30 Units subcutaneously every morning. - insulin 75/25 lispro protamine-lispro units/mL (HUMALOG MIX 75-25,U-100,INSULN) 100 units/mL suspension 10 units TID and a sliding scale s-- he will get 1 units for every 50 points she is over 200. - ondansetron (ZOFRAN) 4 mg tablet Take 1 tablet by mouth every 8 hours as needed for nausea/vomiting. - VENTOLIN HFA 90 mcg/actuation inhaler Inhale 2 Puffs as instructed every 4 hours as needed for wheezing/shortness of breath. - amoxicillin-clavulanate potassium (AUGMENTIN) 875-125 mg per tablet Take 1 tablet by mouth two times a day. - LORazepam (ATIVAN) 1 mg tablet Take 0.5-1 tablets by mouth once daily as needed for up to 90 days. Patient should start on June 05, 2024. - metoprolol succinate ER (TOPROL XL) 200 mg 24 hr tablet Take 1 tablet by mouth once daily. - Acidophilus-Bif Animalis 10 billion cell cap Take 1 capsule by mouth once daily. - gabapentin (NEURONTIN) 300 mg capsule Take 1 capsule by mouth two times a day for 180 days. Morning and bedtime - cyanocobalamin 1,000 mcg/mL Inject intramuscularly once every month. - rosuvastatin (CRESTOR) 10 mg tablet Take 1 tablet by mouth daily at bedtime. As directed - esomeprazole (NEXIUM) 40 mg capsule Take 1 capsule by mouth daily at 6 am. - insulin aspart U-100 (NOVOLOG FLEXPEN U-100 INSULIN) 100 unit/mL (3 mL) Inject 28 Units subcutaneously daily with breakfast AND 28 Units daily with lunch AND 28 Units daily with dinner. Adjust as directed. (Dr. Genny Munguia refills) Also has SSI. - Insulin Rochelle, Disposable, (BD ULTRA-FINE FOZIA PEN NEEDLE) 32 gauge x 5/32 Use one needle for each dose, 4 times daily. 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 - Pyridoxine HCl 250 mg tablet DAILY - DULoxetine (CYMBALTA) 60 mg capsule Take 1 capsule by mouth daily at bedtime. - flash glucose scanning reader (DeentySTYLE DONTRELL 2 READER) - flash glucose sensor (FREESTYLE DONTRELL 14 DAY SENSOR) kit - sertraline (ZOLOFT) 50 mg tablet Take 1 tablet by mouth once daily. - vibegron (GEMTESA) 75 mg tablet Take 75 mg by mouth once daily. - furosemide (LASIX) 20 mg tablet Take 1 tablet by mouth once daily. As directed for leg swelling - TOVIAZ 4 mg Tb24 extended release tablet Take 4 mg by mouth once daily. For 30 days - multivitamin-folic acid-biotin (CKQK-DJCG-EHETN, FL-CG-DZBVQE,) 400-2,000 mcg tab Take by mouth. - collagen, bovine, 100 % powd Jonel (more content not included)... [facility] 12-23-2024 Note HNO ID: [id number] Author: SELAM SHEPARD MA Service: ? Author Type: Sales Executive Type: Progress Notes Filed: 12/23/2024 08:38 Note Text: POPULATION HEALTH NAVIGATION OUTREACH Action/FYI Patient returned call and states this is all taken care of and declines. Reason for Outreach Returned Call/MyChart Patient Contacted: Spoke to patient/parent/or legal guardian Patient identified by name and date of : Yes Returned call/MyChart actions taken: Patient declined: Patient will contact office directly to schedule Navigation Signature: Selam Shepard MA December 23, 2024 8:37 AM [facility] 12-23-2024 History of Presen t illness Narrative POPULATION HEALTH NAVIGATION OUTREACH Action/FYI Patient returned call and states this is all taken care of and declines. Reason for Outreach Returned Call/MyChart Patient Contacted: Spoke to patient/parent/or legal guardian Patient identified by name and date of : Yes Returned call/MyChart actions taken: Patient declined: Patient will contact office directly to schedule Navigation Signature: Selam Shepard MA December 23, 2024 8:37 AM POPULATION HEALTH NAVIGATION OUTREACH Action/FYI Contacted patient to schedule HCC care gaps and health maintenance. 1st attempt: Left message with my direct number Topic Due (Y or N) Comments Annual Wellness Exam Yes PCP Follow up Yes Colorectal Cancer Screening No A1C Yes HTN/Controlling BP No HCC Yes Updated appointment notes No Reason for Outreach Care Gap/HCC or Scheduling Wellness Visits Care Gaps due: Medicare Annual Wellness Visit Follow-up Appointment Controlling Blood Pressure HBA1C Patient Contacted: Unable or unnecessary to reach patient: Left message [employer] message sent HCC related Navigation Signature: Selam Shepard MA December 23, 2024 8:09 AM documented in this encounter [facility] 12-23-2024 Note HNO ID: [id number] Author: SELAM SHEPARD MA Service: ? Author Type: Sales Executive Type: Progress Notes Filed: 12/23/2024 08:10 Note Text: POPULATION HEALTH NAVIGATION OUTREACH Action/FYI Contacted patient to schedule HCC care gaps and health maintenance. 1st attempt: Left message with my direct number Topic Due (Y or N) Comments Annual Wellness Exam Yes PCP Follow up Yes Colorectal Cancer Screening No A1C Yes HTN/Controlling BP No HCC Yes Updated appointment notes No Reason for Outreach Care Gap/HCC or Scheduling Wellness Visits Care Gaps due: Medicare Annual Wellness Visit Follow-up Appointment Controlling Blood Pressure HBA1C Patient Contacted: Unable or unnecessary to reach patient: Left message [employer] message sent HCC related Navigation Signature: Selam Shepard MA December 23, 2024 8:09 AM [facility] 12-23-2024 Note Patient Outreach (NE TNAV) ANA IVORY ([id number]) 1940 F Date Time Provider Department 12/23/24 SELAM SHEPARD NETFRANSISCAV During your visit today, we recorded the following information about you: Selam Shepard MA 12/23/2024 8:10 AM Signed POPULATION HEALTH NAVIGATION OUTREACH Action/FYI Contacted patient to schedule HCC care gaps and health maintenance. 1st attempt: Left message with my direct number Topic Due (Y or N) Comments Annual Wellness Exam Yes PCP Follow up Yes Colorectal Cancer Screening No A1C Yes HTN/Controlling BP No HCC Yes Updated appointment notes No Reason for Outreach Care Gap/HCC or Scheduling Wellness Visits Care Gaps due: Medicare Annual Wellness Visit Follow-up Appointment Controlling Blood Pressure HBA1C Patient Contacted: Unable or unnecessary to reach patient: Left message MyChart message sent HCC related Navigation Signature: Selam Shepard MA December 23, 2024 8:09 AM Selam Shpeard MA 12/23/2024 8:38 AM Signed POPULATION HEALTH NAVIGATION OUTREACH Action/FYI Patient returned call and states this is all taken care of and declines. Reason for Outreach Returned Call/MyChart Patient Contacted: Spoke to patient/parent/or legal guardian Patient identified by name and date of : Yes Returned call/MyChart actions taken: Patient declined: Patient will contact office directly to schedule Navigation Signature: Selam Shepard MA December 23, 2024 8:37 AM Allergies As of Date: 12/23/2024 Noted Allergy Reaction ADHESIVE TAPE (ROSINS) 08/31/2008 4 - Hives Comments: Rash around bandaid never been tested for latex allergy ASPIRIN 04/16/2018 15 - Contraindication-Medical [place]* Comments: GI bleed BONIVA (IBANDRONATE) 12/04/2008 8 - GI Upset Comments: Esophageal burning CARAFATE (SUCRALFATE) 04/24/2012 14 - Other: See Comments Comments: feels poorly CIPROFLOXACIN 12/01/2013 14 - Other: See Comments Comments: photosensitivity, dermatitis CODEINE 08/24/2005 8 - GI Upset IBUPROFEN 03/22/2006 8 - GI Upset IODINATED CONTRAST MEDIA 06/10/2023 11 - Vomiting IODINE 08/25/2008 11 - Vomiting LANSOPRAZOLE 11/01/2011 6 - Diarrhea MACROBID (NITROFURANTOIN MONOHYD/*11/22/2021 8 - GI Upset 10 - Anaphylaxis Comments: Headache, nausea, stomach pain METFORMIN 05/10/2011 6 - Diarrhea MICONAZOLE 12/29/2020 14 - Other: See Comments NEOSPORIN ([id number]*08/31/19 09 2 - Rash Comments: blisters PIOGLITAZONE 12/29/2020 16 - Unknown PROTONIX (PANTOPRAZOLE) 01/13/2010 6 - Diarrhea RELAFEN (NABUMETONE) 03/22/2006 8 - GI Upset 11 - Vomiting SHRIMP 12/21/2021 8 - GI Upset ACTOS (PIOGLITAZONE HCL) 12/03/2016 7 - Swelling Date Reviewed: 07/15/2024 Reviewed by: Edwige Reyes LPN - Fully Assessed Reason for Visit: Population Health Navigation Outreach [3910] Cmt: Jovana/Iman/FAUZIA Prescriptions as of 12/23/2024 - SEMGLEE,INSULIN GLARG-YFGN,PEN 100 unit/mL (3 mL) insulin pen Inject 30 Units subcutaneously every morning. - insulin 75/25 lispro protamine-lispro units/mL (HUMALOG MIX 75-25,U-100,INSULN) 100 units/mL suspension 10 units TID and a sliding scale s-- he will get 1 units for every 50 points she is over 200. - ondansetron (ZOFRAN) 4 mg tablet Take 1 tablet by mouth every 8 hours as needed for nausea/vomiting. - VENTOLIN HFA 90 mcg/actuation inhaler Inhale 2 Puffs as instructed every 4 hours as needed for wheezing/shortness of breath. - amoxicillin-clavulanate potassium (AUGMENTIN) 875-125 mg per tablet Take 1 tablet by mouth two times a day. - LORazepam (ATIVAN) 1 mg tablet Take 0.5-1 tablets by mouth once daily as needed for up to 90 days. Patient should start on June 05, 2024. - metoprolol succinate ER (TOPROL XL) 200 mg 24 hr tablet Take 1 tablet by mouth once daily. - Acidophilus-Bif Animalis 10 billion cell cap Take 1 capsule by mouth once daily. - gabapentin (NEURONTIN) 300 mg capsule Take 1 capsule by mouth two times a day for 180 days. Morning and bedtime - cyanocobalamin 1,000 mcg/mL Inject intramuscularly once every month. - rosuvastatin (CRESTOR) 10 mg tablet Take 1 tablet by mouth daily at bedtime. As directed - esomeprazole (NEXIUM) 40 mg capsule Take 1 capsule by mouth daily at 6 am. - insulin aspart U-100 (NOVOLOG FLEXPEN U-100 INSULIN) 100 unit/mL (3 mL) Inject 28 Units subcutaneously daily with breakfast AND 28 Units daily with lunch AND 28 Units daily with dinner. Adjust as directed. (Dr. Genny Munguia refjere) Also has SSI. - Insulin Rochelle, Disposable, (BD ULTRA-FINE FOZIA PEN NEEDLE) 32 gauge x 5/32 Use one needle for each dose, 4 times daily. 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 - Pyridoxine HCl 250 mg tablet DAILY - DULoxetine (CYMBALTA) 60 mg capsule Take 1 capsule by mouth daily at bedtime. - flash glucose scanning reader ([employer] DONTRELL (more content not included)... [facility] 12-19-2024 Telephone encounter Note Noted. Alicia Blount MD [facility] 12-19-2024 Miscellaneous Notes Noted. Alicia Blount MD Shani from [facility] Home Health calling with plan of care starting next week, OT 2 visits weekly for 3 weeks, working on balance and ADL's and meal prep. Do not need a call back. documented in this encounter [facility] 12-18-2024 Telephone encounter Note Shani from [facility] Home Health calling with plan of care starting next week, OT 2 visits weekly for 3 weeks, working on balance and ADL's and meal prep. Do not need a call back. [facility] 12-17-2024 Telephone encounter Note Home care Certification Form 485 received from [facility]. For cert dates 10/20/24-12/18/24 that were signed on 10/30/24. New Certification Patient's home health 485 form / care plan for stated certification period reviewed and signed. Relevant medical records were reviewed. No changes were indicated [facility] 12-17-2024 Miscellaneous Notes Home care Certification Form 485 received from [facility]. For cert dates 10/20/24-12/18/24 that were signed on 10/30/24. New Certification Patient's home health 485 form / care plan for stated certification period reviewed and signed. Relevant medical records were reviewed. No changes were indicated documented in this encounter [facility] 12-15-2024 Telephone encounter Note Noted and agree. [facility] Work Phone: 12-15-2024 Miscellaneous Notes Noted and agree. Shani from [facility] Home Health calling with OT plan of care, one visit this week. She will call back with new plan next week. No need for return call. documented in this encounter [facility] 12-15-2024 Telephone encounter Note Shani from [facility] calling with OT plan of care, one visit this week. She will call back with new plan next week. No need for return call. [facility] 12-10-2024 Telephone encounter Note Noted, agree. [facility] Work Phone: 12-10-2024 Miscellaneous Notes Noted, agree. Shani - OT- reports she was suppose to see pt today but pt cancelled due to a hair appt. Shani will see patient next week instead. Shani states she will go ahead and put the order in, and doesn't need a call back unless pcp disagrees. documented in this encounter [facility] 12-10-2024 Telephone encounter Note Shani - OT- reports she was suppose to see pt today but pt cancelled due to a hair appt. Shani will see patient next week instead. Shani states she will go ahead and put the order in, and doesn't need a call back unless pcp disagrees. [facility] 11-20-2024 Telephone encounter Note Noted, [place] [facility] 11-20-2024 Miscellaneous Notes Noted, [place] Shani OT calling from [facility] to report plan of care for patient and occupational therapy will visit 2 times a week for 3 weeks. Patient has numbness and tingling on bilateral knees down to feet. Still can feel touch. Patient's Gabapentin was decreased by Dr. Pandya. Nurse Hardik is calling Dr. Pandya's office to let them know. Nurse is scheduled to see patient tomorrow. No Call back needed unless questions Coby Reynolds RN documented in this encounter [facility] 11-20-2024 Note HNO ID: [id number] Author: SELAM SHEPARD MA Service: ? Author Type: Sales Executive Type: Progress Notes Filed: 11/20/2024 08:58 Note Text: POPULATION HEALTH NAVIGATION OUTREACH Action/FYI Contacted patient to schedule HCC care gaps and health maintenance. 1st attempt: Left message with my direct number Topic Due (Y or N) Comments Annual Wellness Exam Yes PCP Follow up Yes Colorectal Cancer Screening No A1C Yes HTN/Controlling BP No HCC Yes Updated appointment notes No Reason for Outreach Care Gap/HCC or Scheduling Wellness Visits Care Gaps due: Medicare Annual Wellness Visit Follow-up Appointment HBA1C Patient Contacted: Unable or unnecessary to reach patient: Left message HCC related Navigation Signature: Selam Shepard MA November 20, 2024 8:57 AM [facility] 11-20-2024 History of Presen t illness Narrative POPULATION HEALTH NAVIGATION OUTREACH Action/FYI Contacted patient to schedule HCC care gaps and health maintenance. 1st attempt: Left message with my direct number Topic Due (Y or N) Comments Annual Wellness Exam Yes PCP Follow up Yes Colorectal Cancer Screening No A1C Yes HTN/Controlling BP No HCC Yes Updated appointment notes No Reason for Outreach Care Gap/HCC or Scheduling Wellness Visits Care Gaps due: Medicare Annual Wellness Visit Follow-up Appointment HBA1C Patient Contacted: Unable or unnecessary to reach patient: Left message HCC related Navigation Signature: Selam Shepard MA November 20, 2024 8:57 AM documented in this encounter [facility] 11-20-2024 Note Patient Outreach (NE TNAV) ANA IVORY ([id number]) 1940 F Date Time Provider Department 11/20/24 SELAM SHEPARD During your visit today, we recorded the following information about you: Selam Shepard MA 11/20/2024 8:58 AM Signed POPULATION HEALTH NAVIGATION OUTREACH Action/FYI Contacted patient to schedule HCC care gaps and health maintenance. 1st attempt: Left message with my direct number Topic Due (Y or N) Comments Annual Wellness Exam Yes PCP Follow up Yes Colorectal Cancer Screening No A1C Yes HTN/Controlling BP No HCC Yes Updated appointment notes No Reason for Outreach Care Gap/HCC or Scheduling Wellness Visits Care Gaps due: Medicare Annual Wellness Visit Follow-up Appointment HBA1C Patient Contacted: Unable or unnecessary to reach patient: Left message HCC related Navigation Signature: Selam Shepard MA November 20, 2024 8:57 AM Allergies As of Date: 11/20/2024 Noted Allergy Reaction ADHESIVE TAPE (ROSINS) 08/31/2008 4 - Hives Comments: Rash around bandaid never been tested for latex allergy ASPIRIN 04/16/2018 15 - Contraindication-Medical [place]* Comments: GI bleed BONIVA (IBANDRONATE) 12/04/2008 8 - GI Upset Comments: Esophageal burning CARAFATE (SUCRALFATE) 04/24/2012 14 - Other: See Comments Comments: feels poorly CIPROFLOXACIN 12/01/2013 14 - Other: See Comments Comments: photosensitivity, dermatitis CODEINE 08/24/2005 8 - GI Upset IBUPROFEN 03/22/2006 8 - GI Upset IODINATED CONTRAST MEDIA 06/10/2023 11 - Vomiting IODINE 08/25/2008 11 - Vomiting LANSOPRAZOLE 11/01/2011 6 - Diarrhea MACROBID (NITROFURANTOIN MONOHYD/*11/22/2021 8 - GI Upset 10 - Anaphylaxis Comments: Headache, nausea, stomach pain METFORMIN 05/10/2011 6 - Diarrhea MICONAZOLE 12/29/2020 14 - Other: See Comments NEOSPORIN ([id number]*08/31/19 09 2 - Rash Comments: blisters PIOGLITAZONE 12/29/2020 16 - Unknown PROTONIX (PANTOPRAZOLE) 01/13/2010 6 - Diarrhea RELAFEN (NABUMETONE) 03/22/2006 8 - GI Upset 11 - Vomiting SHRIMP 12/21/2021 8 - GI Upset ACTOS (PIOGLITAZONE HCL) 12/03/2016 7 - Swelling Date Reviewed: 07/15/2024 Reviewed by: Edwige Reyes LPN - Fully Assessed Reason for Visit: Population Health Navigation Outreach [3910] Cmt: Jovana/Workbench/ACO Prescriptions as of 11/20/2024 - SEMGLEE,INSULIN GLARG-YFGN,PEN 100 unit/mL (3 mL) insulin pen Inject 30 Units subcutaneously every morning. - insulin 75/25 lispro protamine-lispro units/mL (HUMALOG MIX 75-25,U-100,INSULN) 100 units/mL suspension 10 units TID and a sliding scale s-- he will get 1 units for every 50 points she is over 200. - ondansetron (ZOFRAN) 4 mg tablet Take 1 tablet by mouth every 8 hours as needed for nausea/vomiting. - VENTOLIN HFA 90 mcg/actuation inhaler Inhale 2 Puffs as instructed every 4 hours as needed for wheezing/shortness of breath. - amoxicillin-clavulanate potassium (AUGMENTIN) 875-125 mg per tablet Take 1 tablet by mouth two times a day. - LORazepam (ATIVAN) 1 mg tablet Take 0.5-1 tablets by mouth once daily as needed for up to 90 days. Patient should start on June 05, 2024. - metoprolol succinate ER (TOPROL XL) 200 mg 24 hr tablet Take 1 tablet by mouth once daily. - Acidophilus-Bif Animalis 10 billion cell cap Take 1 capsule by mouth once daily. - gabapentin (NEURONTIN) 300 mg capsule Take 1 capsule by mouth two times a day for 180 days. Morning and bedtime - cyanocobalamin 1,000 mcg/mL Inject intramuscularly once every month. - rosuvastatin (CRESTOR) 10 mg tablet Take 1 tablet by mouth daily at bedtime. As directed - esomeprazole (NEXIUM) 40 mg capsule Take 1 capsule by mouth daily at 6 am. - insulin aspart U-100 (NOVOLOG FLEXPEN U-100 INSULIN) 100 unit/mL (3 mL) Inject 28 Units subcutaneously daily with breakfast AND 28 Units daily with lunch AND 28 Units daily with dinner. Adjust as directed. (Dr. Genny Munguia refjere) Also has SSI. - Insulin Rochelle, Disposable, (BD ULTRA-FINE FOZIA PEN NEEDLE) 32 gauge x 32 Use one needle for each dose, 4 times daily. 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 - Pyridoxine HCl 250 mg tablet DAILY - DULoxetine (CYMBALTA) 60 mg capsule Take 1 capsule by mouth daily at bedtime. - flash glucose scanning reader ([employer] DONTRELL 2 READER) - flash glucose sensor (FREESTYLE DONTRELL 14 DAY SENSOR) kit - sertraline (ZOLOFT) 50 mg tablet Take 1 tablet by mouth once daily. - vibegron (GEMTESA) 75 mg tablet Take 75 mg by mouth once daily. - furosemide (LASIX) 20 mg tablet Take 1 tablet by mouth once daily. As directed for leg swelling - TOVIAZ 4 mg Tb24 extended release tablet Take 4 mg by mouth once daily. For 30 days - multivitamin-folic acid-biotin (GIAK-NUER-JJROT, VP-JN-GNPKTF,) 400-2,000 mcg tab Take by mouth. - collagen, bovine, 100 % powd Apply to affe (more content not included)... [facility] 11-19-2024 Telephone encounter Note Shani STEWART calling from [facility] to report plan of care for patient and occupational therapy will visit 2 times a week for 3 weeks. Patient has numbness and tingling on bilateral knees down to feet. Still can feel touch. Patient's Gabapentin was decreased by Dr. Pandya. Nurse Hardik is calling Dr. Pandya's office to let them know. Nurse is scheduled to see patient tomorrow. No Call back needed unless questions Coby Reynolds RN [facility] 10-29-2024 Telephone encounter Note Detailed message left for nurse Steph of below instructions. [facility] 10-29-2024 Miscellaneous Notes Detailed message left for nurse Steph of below instructions. Looks like Dr. Forbes sent the RX for macrobid because patient complained of dysuria. It was added to the discharge summary (addendum) so was not part of the main part of the discharge summary. If she does not have any symptoms, can hold of on th antibiotic. Can check urine for UTI if develops concerning symptoms. Steph from [facility] Home Health calling she was the aircraft detail draftsperson nurse this weekend and was called by the patient daughter Sunday. Daughter said she had not given her mother the macrobid rx for 4 days, she did not know she was to continue taking the medication. Nurse had called Dr biodiesel process control technician Sunday and was told patient to continue taking the macrobid rx. Daughter said she was not given the urine culture results from the hospital. Aware patient needs to schedule hospital follow up appt. Nurse was asking about if patient needs to have another urine test done? Please advise documented in this encounter [facility] 10-28-2024 Telephone encounter Note Looks like Dr. Forbes sent the RX for macrobid because patient complained of dysuria. It was added to the discharge summary (addendum) so was not part of the main part of the discharge summary. If she does not have any symptoms, can hold of on th antibiotic. Can check urine for UTI if develops concerning symptoms. [facility] 10-27-2024 Telephone encounter Note The 98 pills should have said 8. I must have hit the 9 by accident as noted in the actual question: Karina asking if provider wants patient to take the baby aspirin and continue the 8 remaining doses of Macrobid? Message left for Karina with [facility] to notify that patient should be taking Baby Aspirin daily and finishing ATB. I am closing this encounter as now there are several others regarding same issue. Anne Rivera, RN [facility] 10-27-2024 Miscellaneous Notes The 98 pills should have said 8. I must have hit the 9 by accident as noted in the actual question: Karina asking if provider wants patient to take the baby aspirin and continue the 8 remaining doses of Macrobid? Message left for Karina with [facility] to notify that patient should be taking Baby Aspirin daily and finishing ATB. I am closing this encounter as now there are several others regarding same issue. Anne Rivera RN Baby aspirin is on the discharge summary from rehab unit. Macrodantin or Macrobid is on on the med list here. Also, not on discharge summary from rehab unit though UTI was noted on the summary. . I see Macrobdid was prescribed by Dr. Forbes, so she should take the antibioitic to treat the UTI. Clarify about the 98 pills to take -- Dr. Forbes only prescribed 14 pills Karina nurse with [facility] HH calls to let provider know that since patient has returned home from hospital she has not been taking baby aspirin 81 mg daily or Macrobid 100 mg twice daily x 4 days (patient did not realizes she had remaining 98 pills to take once she returned home). Karina asking if provider wants patient to take the baby aspirin and continue the 8 remaining doses of Macrobid? Karina requests call back at [phone]. Please review and advise, Anne Rivera RN documented in this encounter [facility] 10-27-2024 Telephone encounter Note Shelli OT- [facility] HH- phoned with OT update POC: will see pt 2 x's week for 4 weeks for ADLs and IADLs and also reporting delay of care eval due to full schedule. No call back needed. [facility] 10-27-2024 Miscellaneous Notes Shani- OT- [facility] HH- phoned with OT update POC: will see pt 2 x's week for 4 weeks for ADLs and IADLs and also reporting delay of care eval due to full schedule. No call back needed. documented in this encounter [facility] 10-27-2024 Telephone encounter Note Steph from [facility] Home Health calling she was the aircraft detail draftsperson nurse this weekend and was called by the patient daughter Sunday. Daughter said she had not given her mother the macrobid rx for 4 days, she did not know she was to continue taking the medication. Nurse had called Dr biodiesel process control technician Sunday and was told patient to continue taking the macrobid rx. Daughter said she was not given the urine culture results from the hospital. Aware patient needs to schedule hospital follow up appt. Nurse was asking about if patient needs to have another urine test done? Please advise [facility] 10-25-2024 Telephone encounter Note Received call from [facility] nurse regarding patient. Pt was discharged from hospital on Sunday with UTI with prescription for macrobid (unsure of start date). Has not taken antibiotics in four days. Recommended that they complete course of antibiotics and if mother displays signs of AMS, dysuria, urinary frequency, etc then she should be seen in person. They will draw urine on Sunday during home health visit. Dr. Ligia Schilling DO [facility] Work Phone: 10-25-2024 Miscellaneous Notes Received call from [facility] nurse regarding patient. Pt was discharged from hospital on Sunday with UTI with prescription for macrobid (unsure of start date). Has not taken antibiotics in four days. Recommended that they complete course of antibiotics and if mother displays signs of AMS, dysuria, urinary frequency, etc then she should be seen in person. They will draw urine on Sunday during home health visit. Dr. Ligia Schilling DO documented in this encounter [facility] 10-25-2024 Telephone encounter Note Steph RN with [facility] for patient, calling requesting urine lab order; Conferenced to [facility]. Caregiver denies any new or worsening symptoms of which a provider is not aware:Yes . GO TO THE EMERGENCY ROOM OR CALL 911 IF: * You develop any new symptoms * Your condition worsens * You are concerned or anxious about your condition for any other reason. If you have any questions, you can call Nurse biodiesel process control technician back. Gabrielle Murdock RN [facility] 10-25-2024 Miscellaneous Notes Steph RN with [facility] for patient, calling requesting urine lab order; Conferenced to affiliate line. Caregiver denies any new or worsening symptoms of which a provider is not aware:Yes . GO TO THE EMERGENCY ROOM OR CALL 911 IF: * You develop any new symptoms * Your condition worsens * You are concerned or anxious about your condition for any other reason. If you have any questions, you can call Nurse biodiesel process control technician back. Gabrielle Murdock RN documented in this encounter [facility] 10-25-2024 Telephone encounter Note Baby aspirin is on the discharge summary from rehab unit. Macrodantin or Macrobid is on on the med list here. Also, not on discharge summary from rehab unit though UTI was noted on the summary. . I see Macrobdid was prescribed by Dr. Forbes, so she should take the antibioitic to treat the UTI. Clarify about the 98 pills to take -- Dr. Forbes only prescribed [address] [facility] 10-24-2024 Telephone encounter Note Karina nurse with [facility] calls to let provider know that since patient has returned home from hospital she has not been taking baby aspirin 81 mg daily or Macrobid 100 mg twice daily x 4 days (patient did not realizes she had remaining 98 pills to take once she returned home). Karina asking if provider wants patient to take the baby aspirin and continue the 8 remaining doses of Macrobid? Karina requests call back at [phone]. Please review and advise, Anne Rivera, MANNY [facility] 10-24-2024 Telephone encounter Note Noted. [facility] Work Phone: 10-24-2024 Miscellaneous Notes Noted. Rhina from [facility] Home Health calling she has completed patient ST eval and plan to work on swallowing therapy, 2 visits weekly for 2 weeks. No need to return call. documented in this encounter [facility] 10-23-2024 Telephone encounter Note Rhina from [facility] Home Health calling she has completed patient ST eval and plan to work on swallowing therapy, 2 visits weekly for 2 weeks. No need to return call. [facility] 10-21-2024 Telephone encounter Note Below response left on identified vm. Juana Muro LPN [facility] 10-21-2024 Miscellaneous Notes Below response left on identified vm. Juana Muro LPN Patient has intolerance to ibuprofen, not allergy, so okay to take aspirin as indicated. Since she is on 2 BP meds, there will be interaction. Okay to take as long as no issues with hypotension. Not sure about the duplicate issue with gabapentin and clonazepam since different type of meds but okay to take as long as no adverse interactions noted clinically. Noted insulin changes per Dr. Genny Munguia ([facility]) Updated med list Hardik [facility] POC on Pt and reports they will be seeing Pt twice a week for 1 week and once a week for 3 weeks. He has an FYI on medication reconciliation on Pts insulins. He states Pt saw Dr Munguia this morning and she changed the Pts insulins from what Dr Forbes had them on TCU. Pt will be on Lispro 10 units TID and a sliding scale she will get 1 units for every 50 points she is over 200. The Insuline Gargalin was changed from 35 units BID to 30 units daily in the morning. He states there were drug to drug interactions between the Metoprolol and Clonidine. It said there was a duplicate drug with the Gabapentin and Clonazepam. Then he states 2 drug allergies with her having a drug allergy to Nabumetone and Ibuprofen, it says the Pt shouldn't be taking the Asprin 81 mg. documented in this encounter [facility] 10-21-2024 Telephone encounter Note Patient has intolerance to ibuprofen, not allergy, so okay to take aspirin as indicated. Since she is on 2 BP meds, there will be interaction. Okay to take as long as no issues with hypotension. Not sure about the duplicate issue with gabapentin and clonazepam since different type of meds but okay to take as long as no adverse interactions noted clinically. Noted insulin changes per Dr. Genny Munguia (endo) Updated med list [facility] 10-20-2024 Telephone encounter Note [facility] POC on Pt and reports they will be seeing Pt twice a week for 1 week and once a week for 3 weeks. He has an FYI on medication reconciliation on Pts insulins. He states Pt saw Dr Munguia this morning and she changed the Pts insulins from what Dr Forbes had them on TCU. Pt will be on Lispro 10 units TID and a sliding scale she will get 1 units for every 50 points she is over 200. The Insuline Gargalin was changed from 35 units BID to 30 units daily in the morning. He states there were drug to drug interactions between the Metoprolol and Clonidine. It said there was a duplicate drug with the Gabapentin and Clonazepam. Then he states 2 drug allergies with her having a drug allergy to Nabumetone and Ibuprofen, it says the Pt shouldn't be taking the Asprin [address] [facility] 10-17-2024 Telephone encounter Note Called and left a detailed voicemail notifying [facility] of providers message. Clinic phone number was left in case they had any questions. Judith Renteria RN [facility] 10-17-2024 Miscellaneous Notes Called and left a detailed voicemail notifying [facility] of providers message. Clinic phone number was left in case they had any questions. Judith Renteria RN Please call and let them know that yes, we will follow. Thanks. Isabella Emerson APRN.[employer] [facility] called in and reports Pt was D/Chuck from TCU today for a stroke on 08/30. Pt was discharged with PT/OT/SN/SW/ST. She was asking if provider would be willing to follow. Please call and advise. documented in this encounter [facility] 10-17-2024 Telephone encounter Note Please call and let them know that yes, we will follow. Thanks. Isabella Emerson APRN.[employer] [facility] Work Phone: 10-17-2024 Telephone encounter Note [facility] called in and reports Pt was D/Chuck from TCU today for a stroke on 08/30. Pt was discharged with PT/OT/SN/SW/ST. She was asking if provider would be willing to follow. Please call and advise. [facility] 10-10-2024 Note [facility] 09-21-2024 Note [facility] 09-19-2024 Note [facility] 08-29-2024 Note [facility] 08-29-2024 Note [facility] 08-25-2024 Note [facility] 08-07-2024 Note [facility] 08-06-2024 Note [facility] 08-01-2024 Note HNO ID: [id number] Author: ELLEN GONZALEZ RN Service: ? Author Type: Registered Nurse Type: Progress Notes Filed: 08/01/2024 10:47 Note Text: Transitional Care Management (TCM) Follow-Up Note PCP Update / Actionable Items N/A - No specialty updates needed Patient Source: [id number] (OON) Discharge Outreach Summary: Pt reports she is currently experiencing cold symptoms, congestion, fatigue. Denies any fever, chills, vomiting. Blood sugar continues to be up and down over the last week in the 200's, using SSI . Pt. encouraged to call PCP with any questions or concerns. Patient discharged from [facility]. Discharge date: 07/12/24 Admitted for: Syncope Readmission Risk: n/a Value-Based Contract: ACO Contact: Contact made with patient: Yes Spoke to: Patient Validation: Validated the person spoken to is actively involved in the patient's care. The patient was identified by Name and Date of . I'd like to get an update on how you're doing since our last phone call. Is now a good time to talk? Yes Symptoms: Are you feeling about the same, better or worse since leaving the hospital? Same Weekly Outreach: 2nd Outreach Medications: Do you have any questions about taking your medications, including which medications you should be on, or do you need refills on your medications? No Patient Questions / Concerns: Do you have any questions related to your discharge? No Appointment / TCM Follow-Up: Have you had a follow-up visit with your Primary Care Provider or Specialist since you were discharged? Yes Do you need any assistance with scheduling or changing your follow-up appointments? Patient already has an appointment scheduled SDOH: Has Food and Housing been addressed in Social Determinants in the past 3 months? No- Check Social Determinants to ensure Food and Housing have been addressed in the past 3 months. If longer than 3 months or not completed update Social Determinants on story board. Education Patient and family educated on issues/questions related to reason for admission, transition of care topics, and follow-up needed upon discharge. Targets addressed / completed during outreach: Prevent readmission for 30 days Outreach Outcome: Continue TCM Outreach for remainder of 30 days Care Management partners utilized: N/A Ellen Gonzalez RN August 01, 2024 10:46 AM [facility] 08-01-2024 History of Presen t illness Narrative Transitional Care Management (TCM) Follow-Up Note PCP Update / Actionable Items N/A - No specialty updates needed Patient Source: [id number] (OON) Discharge Outreach Summary: Pt reports she is currently experiencing cold symptoms, congestion, fatigue. Denies any fever, chills, vomiting. Blood sugar continues to be up and down over the last week in the 200's, using SSI . Pt. encouraged to call PCP with any questions or concerns. Patient discharged from [facility]. Discharge date: 07/12/24 Admitted for: Syncope Readmission Risk: n/a Value-Based Contract: ACO Contact: Contact made with patient: Yes Spoke to: Patient Validation: Validated the person spoken to is actively involved in the patient's care. The patient was identified by Name and Date of . I'd like to get an update on how you're doing since our last phone call. Is now a good time to talk? Yes Symptoms: Are you feeling about the same, better or worse since leaving the hospital? Same Weekly Outreach: 2nd Outreach Medications: Do you have any questions about taking your medications, including which medications you should be on, or do you need refills on your medications? No Patient Questions / Concerns: Do you have any questions related to your discharge? No Appointment / TCM Follow-Up: Have you had a follow-up visit with your Primary Care Provider or Specialist since you were discharged? Yes Do you need any assistance with scheduling or changing your follow-up appointments? Patient already has an appointment scheduled SDOH: Has Food and Housing been addressed in Social Determinants in the past 3 months? No- Check Social Determinants to ensure Food and Housing have been addressed in the past 3 months. If longer than 3 months or not completed update Social Determinants on story board. Education Patient and family educated on issues/questions related to reason for admission, transition of care topics, and follow-up needed upon discharge. Targets addressed / completed during outreach: Prevent readmission for 30 days Outreach Outcome: Continue TCM Outreach for remainder of 30 days Care Management partners utilized: N/A Ellen Gonzalez RN August 01, 2024 10:46 AM documented in this encounter [facility] 08-01-2024 Note Patient Outreach (AM [facility] ERIKSARAH LOWEDemarcus Wheeler ([id number]) 1940 F Date Time Provider Department 08/01/24 ELLEN GONZALEZ During your visit today, we recorded the following information about you: Ellen Gonzalez RN 08/01/2024 10:47 AM Signed Transitional Care Management (TCM) Follow-Up Note PCP Update / Actionable Items N/A - No specialty updates needed Patient Source: [id number] (OON) Discharge Outreach Summary: Pt reports she is currently experiencing cold symptoms, congestion, fatigue. Denies any fever, chills, vomiting. Blood sugar continues to be up and down over the last week in the 200's, using SSI . Pt. encouraged to call PCP with any questions or concerns. Patient discharged from [facility]. Discharge date: 07/12/24 Admitted for: Syncope Readmission Risk: n/a Value-Based Contract: ACO Contact: Contact made with patient: Yes Spoke to: Patient Validation: Validated the person spoken to is actively involved in the patient's care. The patient was identified by Name and Date of . I'd like to get an update on how you're doing since our last phone call. Is now a good time to talk? Yes Symptoms: Are you feeling about the same, better or worse since leaving the hospital? Same Weekly Outreach: 2nd Outreach Medications: Do you have any questions about taking your medications, including which medications you should be on, or do you need refills on your medications? No Patient Questions / Concerns: Do you have any questions related to your discharge? No Appointment / TCM Follow-Up: Have you had a follow-up visit with your Primary Care Provider or Specialist since you were discharged? Yes Do you need any assistance with scheduling or changing your follow-up appointments? Patient already has an appointment scheduled SDOH: Has Food and Housing been addressed in Social Determinants in the past 3 months? No- Check Social Determinants to ensure Food and Housing have been addressed in the past 3 months. If longer than 3 months or not completed update Social Determinants on story board. Education Patient and family educated on issues/questions related to reason for admission, transition of care topics, and follow-up needed upon discharge. Targets addressed / completed during outreach: Prevent readmission for 30 days Outreach Outcome: Continue TCM Outreach for remainder of 30 days Care Management partners utilized: N/A Ellen Gonzlaez RN August 01, 2024 10:46 AM Allergies As of Date: 08/01/2024 Noted Allergy Reaction ADHESIVE TAPE (ROSINS) 08/31/2008 4 - Hives Comments: Rash around bandaid never been tested for latex allergy ASPIRIN 04/16/2018 15 - Contraindication-Medical [place]* Comments: GI bleed BONIVA (IBANDRONATE) 12/04/2008 8 - GI Upset Comments: Esophageal burning CARAFATE (SUCRALFATE) 04/24/2012 14 - Other: See Comments Comments: feels poorly CIPROFLOXACIN 12/01/2013 14 - Other: See Comments Comments: photosensitivity, dermatitis CODEINE 08/24/2005 8 - GI Upset IBUPROFEN 03/22/2006 8 - GI Upset IODINATED CONTRAST MEDIA 06/10/2023 11 - Vomiting IODINE 08/25/2008 11 - Vomiting LANSOPRAZOLE 11/01/2011 6 - Diarrhea MACROBID (NITROFURANTOIN MONOHYD/*11/22/2021 8 - GI Upset 10 - Anaphylaxis Comments: Headache, nausea, stomach pain METFORMIN 05/10/2011 6 - Diarrhea MICONAZOLE 12/29/2020 14 - Other: See Comments NEOSPORIN ([id number]*08/31/19 09 2 - Rash Comments: blisters PIOGLITAZONE 12/29/2020 16 - Unknown PROTONIX (PANTOPRAZOLE) 01/13/2010 6 - Diarrhea RELAFEN (NABUMETONE) 03/22/2006 8 - GI Upset 11 - Vomiting SHRIMP 12/21/2021 8 - GI Upset ACTOS (PIOGLITAZONE HCL) 12/03/2016 7 - Swelling Date Reviewed: 07/15/2024 Reviewed by: Edwige Reyes LPN - Fully Assessed Prescriptions as of 08/01/2024 - ondansetron (ZOFRAN) 4 mg tablet Take 1 tablet by mouth every 8 hours as needed for nausea/vomiting. - VENTOLIN HFA 90 mcg/actuation inhaler Inhale 2 Puffs as instructed every 4 hours as needed for wheezing/shortness of breath. - amoxicillin-clavulanate potassium (AUGMENTIN) 875-125 mg per tablet Take 1 tablet by mouth two times a day. - LORazepam (ATIVAN) 1 mg tablet Take 0.5-1 tablets by mouth once daily as needed for up to 90 days. Patient should start on June 05, 2024. - metoprolol succinate ER (TOPROL XL) 200 mg 24 hr tablet Take 1 tablet by mouth once daily. - Acidophilus-Bif Animalis 10 billion cell cap Take 1 capsule by mouth once daily. - gabapentin (NEURONTIN) 300 mg capsule Take 1 capsule by mouth two times a day for 180 days. Morning and bedtime - cyanocobalamin 1,000 mcg/mL Inject intramuscularly once every month. - rosuvastatin (CRESTOR) 10 mg tablet Take 1 tablet by mouth daily at bedtime. As directed - cephALEXin (KEFLEX) 250 mg capsule Take 250 mg by joe (more content not included)... [facility] 07-24-2024 Note HNO ID: [id number] Author: ELLEN GONZALEZ RN Service: ? Author Type: Registered Nurse Type: Progress Notes Filed: 07/24/2024 13:18 Note Text: Transitional Care Management (TCM) Follow-Up Note PCP Update / Actionable Items N/A - No specialty updates needed Patient Source: [id number]-[id number] (OON) Discharge Outreach Summary: Pt reports her blood sugar continues to run high during the day - has been running in the high 200's . Pt states she is following with marion Steele at [facility] and awaiting approval on an insulin pump. Encouraged pt to contact Dr. Munguia or PCP 's office should Blood glucose continue to increase above 300. Patient discharged from [facility]. Discharge date: 07/12/24 Admitted for: Syncope Readmission Risk: n/a Value-Based Contract: ACO Contact: Contact made with patient: Yes Spoke to: Patient Validation: Validated the person spoken to is actively involved in the patient's care. The patient was identified by Name and Date of . I'd like to get an update on how you're doing since our last phone call. Is now a good time to talk? Yes Symptoms: Are you feeling about the same, better or worse since leaving the hospital? Better Weekly Outreach: 1st Outreach Medications: Do you have any questions about taking your medications, including which medications you should be on, or do you need refills on your medications? No Patient Questions / Concerns: Do you have any questions related to your discharge? No Appointment / TCM Follow-Up: Have you had a follow-up visit with your Primary Care Provider or Specialist since you were discharged? Yes Do you need any assistance with scheduling or changing your follow-up appointments? Patient already has an appointment scheduled Education Diabetes Education Provided When to call your provider Medication compliance Targets addressed / completed during outreach: Outreach Outcome: Continue TCM Outreach for remainder of 30 days Care Management partners utilized: N/A Ellen Gonzalez RN July 24, 2024 1:13 PM [facility] 07-24-2024 Note Patient Outreach (AM [facility]) AAN IVORY ([id number]) 1940 F Date Time Provider Department 07/24/24 ELLEN GONZALEZ During your visit today, we recorded the following information about you: Ellen Gonzalez RN 07/24/2024 1:18 PM Signed Transitional Care Management (TCM) Follow-Up Note PCP Update / Actionable Items N/A - No specialty updates needed Patient Source: [id number] (OON) Discharge Outreach Summary: Pt reports her blood sugar continues to run high during the day - has been running in the high 200's . Pt states she is following with marion Steele at [facility] and awaiting approval on an insulin pump. Encouraged pt to contact Dr. Munguia or PCP 's office should Blood glucose continue to increase above 300. Patient discharged from [facility] Discharge date: 07/12/24 Admitted for: Syncope Readmission Risk: n/a Value-Based Contract: ACO Contact: Contact made with patient: Yes Spoke to: Patient Validation: Validated the person spoken to is actively involved in the patient's care. The patient was identified by Name and Date of . I'd like to get an update on how you're doing since our last phone call. Is now a good time to talk? Yes Symptoms: Are you feeling about the same, better or worse since leaving the hospital? Better Weekly Outreach: 1st Outreach Medications: Do you have any questions about taking your medications, including which medications you should be on, or do you need refills on your medications? No Patient Questions / Concerns: Do you have any questions related to your discharge? No Appointment / TCM Follow-Up: Have you had a follow-up visit with your Primary Care Provider or Specialist since you were discharged? Yes Do you need any assistance with scheduling or changing your follow-up appointments? Patient already has an appointment scheduled Education Diabetes Education Provided When to call your provider Medication compliance Targets addressed / completed during outreach: Outreach Outcome: Continue TCM Outreach for remainder of 30 days Care Management partners utilized: N/A Ellen Gonzalez RN July 24, 2024 1:13 PM Allergies As of Date: 07/24/2024 Noted Allergy Reaction ADHESIVE TAPE (ROSINS) 08/31/2008 4 - Hives Comments: Rash around bandaid never been tested for latex allergy ASPIRIN 04/16/2018 15 - Contraindication-Medical [place]* Comments: GI bleed BONIVA (IBANDRONATE) 12/04/2008 8 - GI Upset Comments: Esophageal burning CARAFATE (SUCRALFATE) 04/24/2012 14 - Other: See Comments Comments: feels poorly CIPROFLOXACIN 12/01/2013 14 - Other: See Comments Comments: photosensitivity, dermatitis CODEINE 08/24/2005 8 - GI Upset IBUPROFEN 03/22/2006 8 - GI Upset IODINATED CONTRAST MEDIA 06/10/2023 11 - Vomiting IODINE 08/25/2008 11 - Vomiting LANSOPRAZOLE 11/01/2011 6 - Diarrhea MACROBID (NITROFURANTOIN MONOHYD/*11/22/2021 8 - GI Upset 10 - Anaphylaxis Comments: Headache, nausea, stomach pain METFORMIN 05/10/2011 6 - Diarrhea MICONAZOLE 12/29/2020 14 - Other: See Comments NEOSPORIN ([id number]*08/31/19 09 2 - Rash Comments: blisters PIOGLITAZONE 12/29/2020 16 - Unknown PROTONIX (PANTOPRAZOLE) 01/13/2010 6 - Diarrhea RELAFEN (NABUMETONE) 03/22/2006 8 - GI Upset 11 - Vomiting SHRIMP 12/21/2021 8 - GI Upset ACTOS (PIOGLITAZONE HCL) 12/03/2016 7 - Swelling Date Reviewed: 07/15/2024 Reviewed by: Edwige Reyes LPN - Fully Assessed Prescriptions as of 07/24/2024 - ondansetron (ZOFRAN) 4 mg tablet Take 1 tablet by mouth every 8 hours as needed for nausea/vomiting. - VENTOLIN HFA 90 mcg/actuation inhaler Inhale 2 Puffs as instructed every 4 hours as needed for wheezing/shortness of breath. - benzonatate (TESSALON PERLE) 100 mg capsule Take 2 capsules by mouth three times a day as needed for up to 10 days. - amoxicillin-clavulanate potassium (AUGMENTIN) 875-125 mg per tablet Take 1 tablet by mouth two times a day. - LORazepam (ATIVAN) 1 mg tablet Take 0.5-1 tablets by mouth once daily as needed for up to 90 days. Patient should start on June 05, 2024. - metoprolol succinate ER (TOPROL XL) 200 mg 24 hr tablet Take 1 tablet by mouth once daily. - Acidophilus-Bif Animalis 10 billion cell cap Take 1 capsule by mouth once daily. - gabapentin (NEURONTIN) 300 mg capsule Take 1 capsule by mouth two times a day for 180 days. Morning and bedtime - cyanocobalamin 1,000 mcg/mL Inject intramuscularly once every month. - rosuvastatin (CRESTOR) 10 mg tablet Take 1 tablet by mouth daily at bedtime. As directed - cephALEXin (KEFLEX) 250 mg capsule Take 250 mg by mouth daily at bedtime. - esomeprazole (NEXIUM) 40 mg capsule Take 1 capsule by mouth daily at 6 am. - insulin aspart U-100 (NOVOLOG FLEXPEN U-100 INSULIN) 100 unit/mL (3 mL) Inject 28 Units subcutaneousl (more content not included)... [facility] 07-16-2024 Note HNO ID: [id number] Author: MELANY JESUS MA Service: ? Author Type: Sales Executive Type: Progress Notes Filed: 07/16/2024 08:55 Note Text: POPULATION HEALTH NAVIGATION OUTREACH Action/FYI CM Pool Message: Type: TCM Navigation Team Please assist with scheduling TCM Hospital Discharge Follow up. TCM Eligible until 07/26/24 Patient discharged from: [facility] Discharge date: 07/12/24 Admitted for: Syncope TCM eligible through 07/26/24 Outcome: Final attempt. Patient was seen yesterday for her hospital follow up appointment. Reason for Outreach Returned Call/MyChart Patient Contacted: Unable or unnecessary to reach patient: Patient already scheduled Navigation Signature: Melany Jesus MA July 16, 2024 8:54 AM [facility] 07-15-2024 Instructions Alicia Blount MD - 07/15/2024 1:13 PM EST - Continue taking Augmentin 875 mg twice daily; complete the full course as prescribed. - Resume taking Cephalexin after completing the Augmentin course. - Apply Vaseline to the crusty area on your left ta to keep it moisturized and aid healing. - Use CeraVe lotion daily to keep your skin hydrated. - Take Zofran 4 mg every 8 hours as needed for nausea; prescription sent to [facility]. - Use Ventolin inhaler as prescribed; refill sent to [facility]. - Monitor blood sugar levels and adjust insulin doses as needed. - Follow up with Dr. Munguia for lab work once your blood sugar is between 100-160 mg/dL. - Next appointment in September. documented in this encounter [facility] 07-15-2024 Note HNO ID: [id number] Author: ALICIA BLOUNT MD Service: ? Author Type: Physician Type: Progress Notes Filed: 08/11/2024 01:27 Note Text: Transitional Care Management TCM Eligibility Documentation Program: Transitional Care Management Status: Enrolled Effective Dates: 07/14/2024 - present Responsible Staff: Ellen Gonzalez RN Discharge date: 07/12/2024 (Program start) Date of initial contact: 07/14/2024 Initial contact Target status: Successful; Contact made within 2 business days post-discharge Provider Documentation Ana Ivory is a 84 year old female here today for a follow up from recent hospitalization. I have reviewed the patient's hospital course including discharge summary, discharge medications , and follow up needs with the patient and any family members present at today's visit. HPI SUBJECTIVE: Ana Ivory is a 84 year old lady here for [facility] follow up appointment. Ana Ivory is an 84-year-old female with a history of syncope, diabetes mellitus, and bronchiectasis, presenting for follow-up after a recent hospitalization for syncope and suspected infection. Ana reports feeling crappy following a recent hospitalization. She was discharged on the after being admitted for a syncope episode that occurred while she was sitting in a recliner watching TV. She does not recall feeling lightheaded or dizzy before the episode and denies any trauma or head injury during the incident. Her attempted to wake her using ice and gentle slaps but was unsuccessful, prompting him to call emergency services. Upon arrival, she did not recognize her granddaughter's , who is a member of the fire department. She began to regain consciousness during transport to the hospital but remained confused and disoriented, unable to recognize familiar landmarks. She continues to experience intermittent confusion and memory lapses, stating, I'm still a little confused on what happened and who was there. During her hospital stay, she was treated with IV Zosyn and was discharged on Augmentin 875 mg BID for 10 days, which she started on Sunday. She reports nausea, which she attributes to the Augmentin, and requests medication for it. She also reports a persistent headache since the incident. Ana has a history of a left ta injury sustained on the 29 of May, which became infected and was treated with antibiotics and a tetanus shot. The wound was still red and swollen at the time of her recent hospitalization. She also has a right Achilles tendon injury that is being treated with a brace, which she is to wear for another week. She reports that the brace is more comfortable than the boot she was previously using. Ana has a history of diabetes mellitus and is on a sliding scale insulin regimen. She reports that her blood sugar levels were higher than usual during her hospital stay but have improved since returning home. She is considering an insulin pump and has upcoming lab work scheduled with her security flex officer, Dr. Munguia. She also reports frequent urination but denies symptoms of diabetic ketoacidosis. Ana uses a Ventolin inhaler for bronchiectasis and requests a refill. She reports that she is supposed to use it three times a day, six puffs each time, but is currently out of the medication. 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 Chanel, in August. PAST MEDICAL HISTORY Diagnosis Date Acute gastritis without mention of hemorrhage 10/31/2007 Adverse reaction to non-steroidal anti-inflammatory drug (NSAID) 03/28/2010 KATHERIN positive 03/04/2014 Gonzales's esophagus C. difficile diarrhea 10/18/2011 Cataract 04/17/2013 [facility], Dr. Dada Rodríguez. Mild cataract in L eye- no need for cataract surgery at this time. Continue to follow up the cataract. 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 At this time, we anticipate that [...] care for assistance with chest tube to [facility]. Return to [facility] on Sunday11[facility]18/[address] removal . 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 A face to face encounter was performed during this hospital admission r (more content not included)... [facility] 07-15-2024 History of Presen t illness Narrative Transitional Care Management TCM Eligibility Documentation Program: Transitional Care Management Status: Enrolled Effective Dates: 07/14/2024 - present Responsible Staff: Ellen Gonzalez RN Discharge date: 07/12/2024 (Program start) Date of initial contact: 07/14/2024 Initial contact Target status: Successful; Contact made within 2 business days post-discharge Provider Documentation Ana Ivory is a 84 year old female here today for a follow up from recent hospitalization. I have reviewed the patient's hospital course including discharge summary, discharge medications , and follow up needs with the patient and any family members present at today's visit. HPI SUBJECTIVE: Ana Ivory is a 84 year old lady here for [facility] hospital follow up appointment. Ana Ivory is an 84-year-old female with a history of syncope, diabetes mellitus, and bronchiectasis, presenting for follow-up after a recent hospitalization for syncope and suspected infection. Ana reports feeling crappy following a recent hospitalization. She was discharged on the after being admitted for a syncope episode that occurred while she was sitting in a recliner watching TV. She does not recall feeling lightheaded or dizzy before the episode and denies any trauma or head injury during the incident. Her attempted to wake her using ice and gentle slaps but was unsuccessful, prompting him to call emergency services. Upon arrival, she did not recognize her granddaughter's , who is a member of the fire department. She began to regain consciousness during transport to the hospital but remained confused and disoriented, unable to recognize familiar landmarks. She continues to experience intermittent confusion and memory lapses, stating, I'm still a little confused on what happened and who was there. During her hospital stay, she was treated with IV Zosyn and was discharged on Augmentin 875 mg BID for 10 days, which she started on Sunday. She reports nausea, which she attributes to the Augmentin, and requests medication for it. She also reports a persistent headache since the incident. Ana has a history of a left ta injury sustained on the 29 of May, which became infected and was treated with antibiotics and a tetanus shot. The wound was still red and swollen at the time of her recent hospitalization. She also has a right Achilles tendon injury that is being treated with a brace, which she is to wear for another week. She reports that the brace is more comfortable than the boot she was previously using. Ana has a history of diabetes mellitus and is on a sliding scale insulin regimen. She reports that her blood sugar levels were higher than usual during her hospital stay but have improved since returning home. She is considering an insulin pump and has upcoming lab work scheduled with her security flex officer, Dr. Munguia. She also reports frequent urination but denies symptoms of diabetic ketoacidosis. Ana uses a Ventolin inhaler for bronchiectasis and requests a refill. She reports that she is supposed to use it three times a day, six puffs each time, but is currently out of the medication. 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 Chanel, in August. PAST MEDICAL HISTORY Diagnosis Date Acute gastritis without mention of hemorrhage 10/31/2007 Adverse reaction to non-steroidal anti-inflammatory drug (NSAID) 03/28/2010 KATHERIN positive 03/04/2014 Gonzales's esophagus C. difficile diarrhea 10/18/2011 Cataract 04/17/2013 [facility], Dr. Dada Rodríguez. Mild cataract in L eye- no need for cataract surgery at this time. Continue to follow up the cataract. 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 At this time, we anticipate that [...] care for assistance with chest tube to [facility]. Return to [facility] on Sunday[facility]/[address] [...] status migrainosus Current Outpatient Medications Medication Sig LORazepam (ATIVAN) 1 mg tablet Take 0.5-1 tablets by mouth once daily as needed for up to 90 days. Patient should start on June 05, 2024. metoprolol succinate ER (TOPROL XL) 200 mg 24 hr tablet Take 1 tablet by mouth once daily. Acidophilus-Bif Animalis 10 billion cell cap Take 1 capsule by mouth once daily. gabapentin (NEURONTIN) 300 mg capsule Take 1 capsule by mouth two times a day for 180 days. Morning and bedtime cyanocobalamin 1,000 mcg/mL Inject intramuscularly once every month. esomeprazole (NEXIUM) 40 mg capsule Take 1 capsule by mouth daily at 6 am. insulin aspart U-100 (NOVOLOG FLEXPEN U-100 INSULIN) 100 unit/mL (3 mL) Inject 28 Units subcutaneously daily with breakfast AND 28 Units daily with lunch AND 28 Units daily with dinner. Adjust as directed. (Dr. Genny funes) Also has SSI. (Patient taking differently: Inject 55 Units subcutaneously daily with breakfast AND 28 Units daily with lunch AND 38 Units daily with dinner. Adjust as directed. (Dr. Genny funes) Also has SSI.) insulin glargine (LANTUS SOLOSTAR U-100 INSULIN) 100 unit/mL (3 mL) Inject 20 Units subcutaneously daily at bedtime. (Dr. Genny funes) (Patient taking differently: Inject 22 Units subcutaneously daily at bedtime. (Dr. Genny funes)) Insulin Rochelle, Disposable, (BD ULTRA-FINE FOZIA PEN NEEDLE) 32 gauge x /32 Use one needle for each dose, 4 times daily. Dx: Type 2 DM - Controlled E11.9 aspirin 81 mg cap Take by mouth. DULoxetine (CYMBALTA) 60 mg capsule Take 1 capsule by mouth daily at bedtime. flash glucose scanning reader (FREESTYLE DONTRELL 2 READER) flash glucose sensor (FREESTYLE DONTRELL 14 DAY SENSOR) kit vibegron (GEMTESA) 75 mg tablet Take 75 [...] once daily. For 30 days multivitamin-folic acid-biotin (JMOC-DGPT-VLUEX, AG-NB-EDHVSG,) 400-2,000 mcg tab Take by mouth. collagen, bovine, 100 % powd Apply to affected area. Cranberry-Vitamin C-Vitamin E (CRANBERRY PLUS VITAMIN C) 140-100 mg cap Patient takes Cranberry with Vitamin C capsule that contains 15,000 mg Cranberry and 100mg Vitamin C Biotin 2,500 mcg cap Nurse reports patient taking 1500 mcg dose once daily (cannot find 1500mcg dose on menu) Miscellaneous Medical Supply misc Custom Orthotics (E08.40, [...] multivitamins(DAILY MULTIVITAMIN TAB) Take one(1) tablet daily. amoxicillin-clavulanate potassium (AUGMENTIN) 875-125 mg per tablet Take 1 tablet by mouth two times a day. (Patient not taking: Reported on 07/15/2024) rosuvastatin (CRESTOR) 10 mg tablet Take 1 tablet by mouth daily at bedtime. As directed (Patient not taking: Reported on 05/27/2024) cephALEXin (KEFLEX) 250 mg capsule Take 250 mg by mouth daily at bedtime. (Patient not taking: Reported on 07/15/2024) Pyridoxine HCl 250 mg tablet DAILY (Patient not taking: Reported on 05/27/2024) sertraline (ZOLOFT) 50 mg tablet Take 1 tablet by mouth once daily. (Patient not taking: Reported on 07/15/2024) No current facility-administered medications for this visit. Review of Systems BP 142/78 Pulse 82 Temp 36.6 C (97.8 F) Resp 16 Wt 71.6 kg (157 lb 13.6 oz) SpO2 97% BMI 28.87 kg/m Last 5 Encounter Wt Readings: Date: Wt: 07/15/2024 71.6 kg (157 lb 13.6 oz) 05/27/2024 74.2 kg (163 lb 9.3 oz) 02/17/2024 70.3 kg (154 lb 15.7 oz) 02/12/2024 72.3 kg (159 lb 6.3 oz) 01/31/2024 71.7 kg (158 lb) No waist measurement recorded Estimated body mass index is 28.87 kg/m as calculated from the following: Height as of 10/01/23: 157.5 cm (5' 2). Weight as of this encounter: 71.6 kg (157 lb 13.6 oz). Last 5 Encounter BP Readings: Date: BP: 07/15/2024 142/78 05/27/2024 128/68 02/17/2024 120/72 02/12/2024 132/80 01/31/2024 148/82[bp average[ Physical Exam Constitutional: Appearance: Normal appearance. HENT: Head: Normocephalic. Right Ear: External ear normal. Left Ear: External ear normal. Eyes: Conjunctiva/sclera: Conjunctivae normal. Cardiovascular: Rate and Rhythm: Normal rate and regular rhythm. Heart sounds: Normal heart sounds. Pulmonary: Effort: Pulmonary effort is normal. Breath sounds: Normal breath sounds. Musculoskeletal: Right lower leg: No edema. Left lower leg: No edema. Skin: General: Skin is warm and dry. Comments: Healing crusted wound upper left ta. Signs of swelling of legs that had resolved with wrinkling of skin. Mild dryness Neurological: General: No focal deficit present. Mental Status: She is alert and oriented to person, place, and time. Psychiatric: Mood and Affect: Mood normal. Behavior: Behavior normal. Thought Content: Thought content normal. Judgment: Judgment normal. Hemoglobin A1C (%) Date Value 01/31/2024 8.2 09/28/2023 8.0 01/26/2023 7.3 08/02/2022 7.7 03/27/2022 7.7 03/29/2021 8.0 11/23/2020 7.3 07/23/2020 7.1 01/22/2020 7.2 10/20/2019 7.4 Hemoglobin A1C (POCT) (%) Date Value 03/01/2021 7.9 HGB A1C (no units) Date Value 07/18/2021 7.4 From [facility] Blood cultures x2 from two different sites No growth in 48 hours. Normal [facility] Yeast, not Shanna albicans [place] Count 80,000-100,000 Normal [facility] # Syncope, unspecified syncope type (R55) - Recent episode of syncope while sitting in a chair, with no preceding lightheadedness or dizziness reported. - Hospitalization from 07/12 to 07/14; workup included CT head, echocardiogram, and telemetry monitoring, all unremarkable. - Blood pressure was elevated during the episode; no orthostatic hypotension noted. - WBC count was elevated, suggesting a possible underlying infection. - Discharged on Augmentin 875 mg BID for 10 days; started on 07/15. - Follow-up to monitor for any recurrent episodes or changes in condition. 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 - Current regimen includes Lantus 22 units at bedtime, NovoLog 60 units with breakfast, 25 units with lunch, and 38 units with dinner. - Discussed potential transition to insulin pump therapy with Dr. Munguia; awaiting lab work with glucose levels between 100-160 mg/dL for pump evaluation. - Advised to continue current insulin regimen and monitor blood glucose levels closely. # Recurrent bronchospasm (J98.09) # Bronchiectasis without complication ([facility]) (J47.9) - Refilled Ventolin inhaler; instructed to use as needed for bronchospasm. - Follow-up with infantry senior sergeant Dr. Chanel scheduled in August. - Monitor for any changes in respiratory status or increased frequency of bronchospasm episodes. Alicia Blount MD documented in this encounter [facility] 07-14-2024 Note HNO ID: [id number] Author: MELANY JESUS MA Service: ? Author Type: Sales Executive Type: Progress Notes Filed: 07/14/2024 12:41 Note Text: POPULATION HEALTH NAVIGATION OUTREACH Action/FYI CM Pool Message: Type: TCM Navigation Team Please assist with scheduling TCM Hospital Discharge Follow up. TCM Eligible until 07/26/24 Patient discharged from: [facility] Discharge date: 07/12/24 Admitted for: Syncope TCM eligible through 07/26/24 Outcome: 1st attempt. Spoke with patient. There are no available time slots with Dr. Blount, and she doesn't want to see anyone else. Message forwarded to scheduling staff for further assistance. Bennyhart declined. Status updated. Reason for Outreach Community Monitoring/Network Navigator Pools AND Phone Line: TCM Patient Contacted: Spoke to patient/parent/or legal guardian Patient identified by name and : Yes Community Monitoring/Network Navigator Pools AND Phone Line actions taken: Unable to find appointment within TCM timeframe - sent to PCP Navigation Signature: Melany Jesus MA July 14, 2024 12:09 PM [facility] 07-14-2024 History of Presen t illness Narrative POPULATION HEALTH NAVIGATION OUTREACH Action/FYI CM Pool Message: Type: TCM Navigation Team Please assist with scheduling TCM Hospital Discharge Follow up. TCM Eligible until 07/26/24 Patient discharged from: [facility] Discharge date: 07/12/24 Admitted for: Syncope TCM eligible through 07/26/24 Outcome: 1st attempt. Spoke with patient. There are no available time slots with Dr. Blount, and she doesn't want to see anyone else. Message forwarded to scheduling staff for further assistance. Bennyhart declined. Status updated. Reason for Outreach Community Monitoring/Network Navigator Pools & Phone Line: TCM Patient Contacted: Spoke to patient/parent/or legal guardian Patient identified by name and : Yes Community Monitoring/Network Navigator Pools & Phone Line actions taken: Unable to find appointment within TCM timeframe - sent to PCP Navigation Signature: Melany Jesus MA July 14, 2024 12:09 PM Transition Care Management (TCM) Initial Outreach PCP Update / Actionable Items HRTIC TCM Home Visit Referral Source of Stratification: [facility] Hospital Admission Status: Discharged Readmission Risk Score: n/a Patient's zip code: [address] Is zip code within program service area: No Patient meets program referral criteria: No Patient does not qualify for High Risk TCM Home Visit program due to: Patient's zip code is not located within program service area Readmission Risk Score does not meet criteria Disposition: Patient does not qualify for HRTIC, will provide TCM outreach follow-up for 30-days Navigation Team Please assist with scheduling TCM Hospital Discharge Follow up. TCM Eligible until 07/26/24 Thank you Patient Source: [facility] (OON) Discharge Outreach Summary: Spoke with pt's spouse Josr. States pt currently sleeping. He continues to feel concern as pt 's appetite has been fair and continues to find her staring into space during the day. States she has had intermittent episodes of diarrhea , about 3 times a day. Noted pt did start Augmentin rx. Blood glucose per spouse had a reading with Freestyle Dontrell over 300 last night . Spouse advised if any readings above 300 should continue to contact PCP 's office. He states pt is staying hydrated. Patient discharged from [facility]. Discharge date: 07/12/24 Admitted for: Syncope Readmission Risk: n/a Value-Based Contract: ACO Contact: Contact made with patient: Yes Hi, my name is Ellen Gonzalez RN and I am calling from the [facility] on behalf of your Primary Care Provider, Alicia Blount MD. I understand you were recently in the hospital, so I am calling to check in with you to ensure you are feeling well now that you are home. May I ask you a few questions related to your hospital stay and well-being? Yes Spoke to: Spouse, Josr Validation: Validated the person spoken to is actively involved in the patient's care. The patient was identified by Name and Date of . Symptoms: Are you feeling about the same, better or worse since leaving the hospital? Same Medications: Do you have any questions about taking your medications, including which medications you should be on, or do you need refills on your medications? No Medication Review: Partial mediation review completed, per patient preference Augmentin rx added to med list Discharge Instructions: Your Discharge Instructions / After Visit Summary (AVS) are important in guiding you through the recovery process. Do you have any questions related to your discharge instructions? No Home Care: Were you discharged with home care? No Equipment: Do you have all the necessary equipment and supplies needed at your home? Yes The patient verbalizes understanding the use of the equipment and supplies Social: We would like to make sure you have what you need so that your basics needs are met - including your personal safety, food, housing and medications. Would you like to speak with a social work submarine advisory team watch officer to help give you support for any of these needs? not assessed It can be normal to feel anxious or down during a time like this. Would you like to talk to a mental health professional about how you have been feeling? not assessed Action Taken: No needs verbalized. No action required. Follow-Up Appointment: [Appointment / TCM Follow-up within 14 days] I would like to help you schedule a hospital follow-up virtual or telephone visit with your PCP. This is a great way for you to connect with your provider to ensure you have safely transitioned home. If you are agreeable, I will send your request to a welder first class who will contact and assist you with that appointment. This will give you an opportunity to ask any questions or address any concerns you may have with your PCP. Inform the patient that if they have any questions or concerns prior to that appointment, to call their PCP's office right away. Appointment Action: Patient desires an appointment. Complete Navigation Team box and route to [facility] ([id number]) for scheduling. Education Patient and family educated on issues/questions related to reason for admission, transition of care topics, and follow-up needed upon discharge. Targets addressed / completed during outreach: Contact patient within two (2) business days Outreach Outcome: Enrolled in TCM Care Management partners utilized: Navigation Team Ellen Gonzalez RN July 14, 2024 11:58 AM documented in this encounter [facility] 07-14-2024 Note HNO ID: [id number] Author: ELLEN GONZALEZ RN Service: ? Author Type: Registered Nurse Type: Progress Notes Filed: 07/14/2024 12:07 Note Text: Transition Care Management (TCM) Initial Outreach PCP Update / Actionable Items HRTIC TCM Home Visit Referral Source of Stratification: [facility]UB Hospital Admission Status: Discharged Readmission Risk Score: n/a Patient's zip code: [address] Is zip code within program service area: No Patient meets program referral criteria: No Patient does not qualify for High Risk TCM Home Visit program due to: Patient's zip code is not located within program service area Readmission Risk Score does not meet criteria Disposition: Patient does not qualify for HRTIC, will provide TCM outreach follow-up for 30-days Navigation Team Please assist with scheduling TCM Hospital Discharge Follow up. TCM Eligible until 07/26/24 Thank you Patient Source: [facility] (OON) Discharge Outreach Summary: Spoke with pt's spouse Josr. States pt currently sleeping. He continues to feel concern as pt 's appetite has been fair and continues to find her staring into space during the day. States she has had intermittent episodes of diarrhea , about 3 times a day. Noted pt did start Augmentin rx. Blood glucose per spouse had a reading with Freestyle Dontrell over 300 last night . Spouse advised if any readings above 300 should continue to contact PCP 's office. He states pt is staying hydrated. Patient discharged from [facility]. Discharge date: 07/12/24 Admitted for: Syncope Readmission Risk: n/a Value-Based Contract: ACO Contact: Contact made with patient: Yes Hi, my name is Ellen Gonzalez RN and I am calling from the [facility] on behalf of your Primary Care Provider, Alicia Blount MD. I understand you were recently in the hospital, so I am calling to check in with you to ensure you are feeling well now that you are home. May I ask you a few questions related to your hospital stay and well-being? Yes Spoke to: Spouse, Josr Validation: Validated the person spoken to is actively involved in the patient's care. The patient was identified by Name and Date of . Symptoms: Are you feeling about the same, better or worse since leaving the hospital? Same Medications: Do you have any questions about taking your medications, including which medications you should be on, or do you need refills on your medications? No Medication Review: Partial mediation review completed, per patient preference Augmentin rx added to med list Discharge Instructions: Your Discharge Instructions / After Visit Summary (AVS) are important in guiding you through the recovery process. Do you have any questions related to your discharge instructions? No Home Care: Were you discharged with home care? No Equipment: Do you have all the necessary equipment and supplies needed at your home? Yes The patient verbalizes understanding the use of the equipment and supplies Social: We would like to make sure you have what you need so that your basics needs are met - including your personal safety, food, housing and medications. Would you like to speak with a social work submarine advisory team watch officer to help give you support for any of these needs? not assessed It can be normal to feel anxious or down during a time like this. Would you like to talk to a mental health professional about how you have been feeling? not assessed Action Taken: No needs verbalized. No action required. Follow-Up Appointment: [Appointment / TCM Follow-up within 14 days] I would like to help you schedule a hospital follow-up virtual or telephone visit with your PCP. This is a great way for you to connect with your provider to ensure you have safely transitioned home. If you are agreeable, I will send your request to a welder first class who will contact and assist you with that appointment. This will give you an opportunity to ask any questions or address any concerns you may have with your PCP. Inform the patient that if they have any questions or concerns prior to that appointment, to call their PCP's office right away. Appointment Action: Patient desires an appointment. Complete Navigation Team box and route to [facility] ([id number]) for scheduling. Education Patient and family educated on issues/questions related to reason for admission, transition of care topics, and follow-up needed upon discharge. Targets addressed / completed during outreach: Contact patient within two (2) business days Outreach Outcome: Enrolled in TCM Care Management partners utilized: Navigation Team Ellen Gonzalez RN July 14, 2024 11:58 AM [facility] 07-14-2024 Note Patient Outreach ([facility] ANA IVORY ([id number]) 1940 F Date Time Provider Department 07/14/24 ELLEN GONZALEZG During your visit today, we recorded the following information about you: Ellen Gonzalez RN 07/14/2024 12:07 PM Signed Transition Care Management (TCM) Initial Outreach PCP Update / Actionable Items HRTIC TCM Home Visit Referral Source of Stratification: TCM HUB Hospital Admission Status: Discharged Readmission Risk Score: n/a Patient's zip code: [address] Is zip code within program service area: No Patient meets program referral criteria: No Patient does not qualify for High Risk TCM Home Visit program due to: Patient's zip code is not located within program service area Readmission Risk Score does not meet criteria Disposition: Patient does not qualify for HRTIC, will provide TCM outreach follow-up for 30-days Navigation Team Please assist with scheduling TCM Hospital Discharge Follow up. TCM Eligible until 07/26/24 Thank you Patient Source: [id number] ([facility]ON) Discharge Outreach Summary: Spoke with pt's spouse Josr. States pt currently sleeping. He continues to feel concern as pt 's appetite has been fair and continues to find her staring into space during the day. States she has had intermittent episodes of diarrhea , about 3 times a day. Noted pt did start Augmentin rx. Blood glucose per spouse had a reading with Freestyle Dontrell over 300 last night . Spouse advised if any readings above 300 should continue to contact PCP 's office. He states pt is staying hydrated. Patient discharged from [facility] Discharge date: 07/12/24 Admitted for: Syncope Readmission Risk: n/a Value-Based Contract: ACO Contact: Contact made with patient: Yes Hi, my name is Ellen Gonzalez RN and I am calling from the [facility] on behalf of your Primary Care Provider, Alicia Blount MD. I understand you were recently in the hospital, so I am calling to check in with you to ensure you are feeling well now that you are home. May I ask you a few questions related to your hospital stay and well-being? Yes Spoke to: Spouse, Josr Validation: Validated the person spoken to is actively involved in the patient's care. The patient was identified by Name and Date of . Symptoms: Are you feeling about the same, better or worse since leaving the hospital? Same Medications: Do you have any questions about taking your medications, including which medications you should be on, or do you need refills on your medications? No Medication Review: Partial mediation review completed, per patient preference Augmentin rx added to med list Discharge Instructions: Your Discharge Instructions / After Visit Summary (AVS) are important in guiding you through the recovery process. Do you have any questions related to your discharge instructions? No Home Care: Were you discharged with home care? No Equipment: Do you have all the necessary equipment and supplies needed at your home? Yes The patient verbalizes understanding the use of the equipment and supplies Social: We would like to make sure you have what you need so that your basics needs are met - including your personal safety, food, housing and medications. Would you like to speak with a social work submarine advisory team watch officer to help give you support for any of these needs? not assessed It can be normal to feel anxious or down during a time like this. Would you like to talk to a mental health professional about how you have been feeling? not assessed Action Taken: No needs verbalized. No action required. Follow-Up Appointment: [Appointment / TCM Follow-up within 14 days] I would like to help you schedule a hospital follow-up virtual or telephone visit with your PCP. This is a great way for you to connect with your provider to ensure you have safely transitioned home. If you are agreeable, I will send your request to a welder first class who will contact and assist you with that appointment. This will give you an opportunity to ask any questions or address any concerns you may have with your PCP. Inform the patient that if they have any questions or concerns prior to that appointment, to call their PCP's office right away. Appointment Action: Patient desires an appointment. Complete Navigation Team box and route to [facility] ([id number]) for scheduling. Education Patient and family educated on issues/questions related to reason for admission, transition of care topics, and follow-up needed upon discharge. Targets addressed / completed during outreach: Contact patient within two (2) business days Outreach Outcome: Enrolled in TCM Care Management partners utilized: Navigation Team Ellen Gonzalez RN July 14, 2024 11:58 AM Melany Jesus MA 07/14/2024 12:41 (more content not included)... [facility] 07-12-2024 Note [facility] 05-27-2024 Instructions Alicia Blount MD - 05/27/2024 11:56 AM EDT - Take lorazepam as prescribed; refill sent to [facility] in [place]. - Continue taking Cymbalta as prescribed. - Discontinue Lydia. - Take Lasix as needed. - Continue taking Gabapentin as prescribed. - Take insulin as prescribed: 55 units with breakfast, 28 units with lunch, 38 units with dinner, and 22 units of Lantus at bedtime. - Monitor blood sugar levels regularly and report any significant changes to Dr. Munguia. - Take metoprolol as prescribed; refill sent to [facility]. - Take cephalexin (Keflex) every night as prescribed. - Elevate your feet when possible to reduce swelling. - Drink enough water and maintain a balanced salt intake. - Follow up with Dr. Munguia next week for diabetes management. - Follow up with Dr. Do on Sunday regarding the boot. - Follow up with Dr. Don for the bladder procedure on . - Consider getting a flu shot after the bladder procedure. - Next appointment in four months. documented in this encounter [facility] 05-27-2024 Note HNO ID: [id number] Author: ALICIA BLOUNT MD Service: ? Author Type: Physician Type: Progress Notes Filed: 07/04/2024 17:59 Note Text: This note was created using [employer]. Subjective Ana Ivory is a 84 year old female. Patient presents with: F/U 4 month SUBJECTIVE: Ana Ivory is a 84 year old year old lady here today for 4 month follow up appointment for review of medical conditions. The patient is a 84-year-old female with a history of diabetes mellitus type 1.5, presenting for a 4-month follow-up appointment. The patient reports experiencing hyperglycemia, with blood glucose levels reaching 200-300 mg/dL, particularly when delaying breakfast until 1000. She is currently on an insulin regimen prescribed by Dr. Munguia, which includes 55 units with breakfast, 28 units with lunch, and 38 units with dinner, along with 22 units of Lantus at bedtime. She notes that her blood glucose levels are stable when she eats breakfast at 0730 but tend to rise if she delays eating. She also reports an episode of hypoglycemia, with a blood glucose level dropping to 52 mg/dL, after consuming only a small bowl of cereal for breakfast and administering her usual 55 units of insulin. She is scheduled to see Dr. Munguia next week to discuss her insulin regimen and the possibility of using an insulin pump. The patient is also experiencing swelling in her leg, which she attributes to wearing a boot for the past six weeks. She reports that the swelling is improving and is scheduled to see Dr. Do next Sunday for further evaluation. She also mentions that her balance is off, and the boot is not helping with her mobility. The patient requests a refill of her lorazepam prescription, which she takes as needed. She also reports that she is scheduled for a bladder procedure with Dr. Don on and will take a full dose of lorazepam on that day. She is currently taking cephalexin at bedtime for the prevention of bladder infections. The patient reports a recent episode of flu-like symptoms, including headache, cough, nausea, vomiting, and diarrhea, which lasted for over a week. She was seen in the emergency room at the beginning of May and was diagnosed with a viral syndrome, dehydration, and abdominal pain. She received IV fluids, morphine, and Zofran during her visit and reports feeling better after treatment. She is considering getting a flu shot but prefers to wait until after her upcoming procedure. PAST MEDICAL HISTORY Diagnosis Date Acute gastritis without mention of hemorrhage 10/31/2007 Adverse reaction to non-steroidal anti-inflammatory drug (NSAID) 03/28/2010 KATHERIN positive 03/04/2014 Gonzales's esophagus C. difficile diarrhea 10/18/2011 Cataract 04/17/2013 [facility], Dr. Dada Rodríguez. Mild cataract in L eye- no need for cataract surgery at this time. Continue to follow up the cataract. 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 At this time, we anticipate that [...] diabetes mellitus without mention of complication, not (more content not included)... [facility] 05-27-2024 History of Presen t illness Narrative This note was created using [employer]. Subjective Ana Ivory is a 84 year old female. Patient presents with: F/U 4 month SUBJECTIVE: Ana Ivory is a 84 year old year old lady here today for 4 month follow up appointment for review of medical conditions. The patient is a 84-year-old female with a history of diabetes mellitus type 1.5, presenting for a 4-month follow-up appointment. The patient reports experiencing hyperglycemia, with blood glucose levels reaching 200-300 mg/dL, particularly when delaying breakfast until 1000. She is currently on an insulin regimen prescribed by Dr. Munguia, which includes 55 units with breakfast, 28 units with lunch, and 38 units with dinner, along with 22 units of Lantus at bedtime. She notes that her blood glucose levels are stable when she eats breakfast at 0730 but tend to rise if she delays eating. She also reports an episode of hypoglycemia, with a blood glucose level dropping to 52 mg/dL, after consuming only a small bowl of cereal for breakfast and administering her usual 55 units of insulin. She is scheduled to see Dr. Munguia next week to discuss her insulin regimen and the possibility of using an insulin pump. The patient is also experiencing swelling in her leg, which she attributes to wearing a boot for the past six weeks. She reports that the swelling is improving and is scheduled to see Dr. Do next Sunday for further evaluation. She also mentions that her balance is off, and the boot is not helping with her mobility. The patient requests a refill of her lorazepam prescription, which she takes as needed. She also reports that she is scheduled for a bladder procedure with Dr. Don on and will take a full dose of lorazepam on that day. She is currently taking cephalexin at bedtime for the prevention of bladder infections. The patient reports a recent episode of flu-like symptoms, including headache, cough, nausea, vomiting, and diarrhea, which lasted for over a week. She was seen in the emergency room at the beginning of May and was diagnosed with a viral syndrome, dehydration, and abdominal pain. She received IV fluids, morphine, and Zofran during her visit and reports feeling better after treatment. She is considering getting a flu shot but prefers to wait until after her upcoming procedure. PAST MEDICAL HISTORY Diagnosis Date Acute gastritis without mention of hemorrhage 10/31/2007 Adverse reaction to non-steroidal anti-inflammatory drug (NSAID) 03/28/2010 KATHERIN positive 03/04/2014 Gonzales's esophagus C. difficile diarrhea 10/18/2011 Cataract 04/17/2013 [facility], Dr. Dada Rodríguez. Mild cataract in L eye- no need for cataract surgery at this time. Continue to follow up the cataract. 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 At this time, we anticipate that [...] status migrainosus Current Outpatient Medications Medication Sig Acidophilus-Bif Animalis 10 billion cell cap Take 1 capsule by mouth once daily. gabapentin (NEURONTIN) 300 mg capsule Take 1 capsule by mouth two times a day for 180 days. Morning and bedtime cyanocobalamin 1,000 mcg/mL Inject intramuscularly once every month. LORazepam (ATIVAN) 1 mg tablet Take 0.5-1 tablets by mouth once daily as needed for up to 90 days. cephALEXin (KEFLEX) 250 mg capsule Take 250 mg by mouth daily at bedtime. esomeprazole (NEXIUM) 40 mg capsule Take 1 capsule by mouth daily at 6 am. insulin aspart U-100 (NOVOLOG FLEXPEN U-100 INSULIN) 100 unit/mL (3 mL) Inject 28 Units subcutaneously daily with breakfast AND 28 Units daily with lunch AND 28 Units daily with dinner. Adjust as directed. (Dr. Genny funes) Also has SSI. (Patient taking differently: Inject 55 Units subcutaneously daily with breakfast AND 28 Units daily with lunch AND 38 Units daily with dinner. Adjust as directed. (Dr. Genny funes) Also has SSI.) insulin glargine (LANTUS SOLOSTAR U-100 INSULIN) 100 unit/mL (3 mL) Inject 20 Units subcutaneously daily at bedtime. (Dr. Genny funes) (Patient taking differently: Inject 22 Units subcutaneously daily at bedtime. (Dr. Genny funes)) Insulin Rochelle, Disposable, (BD ULTRA-FINE FOZIA PEN NEEDLE) 32 gauge x 5/32 Use one needle for each dose, 4 times daily. Dx: Type 2 DM - Controlled E11.9 aspirin 81 mg cap Take by mouth. DULoxetine (CYMBALTA) 60 mg capsule Take 1 capsule by mouth daily at bedtime. metoprolol succinate ER (TOPROL XL) 200 mg 24 hr tablet Take 1 tablet by mouth once daily. flash glucose scanning reader (FREESTYLE DONTRELL 2 READER) flash glucose sensor (FREESTYLE DONTRELL 14 DAY SENSOR) kit vibegron (GEMTESA) 75 mg tablet Take 75 [...] once daily. For 30 days multivitamin-folic acid-biotin (CVBY-OABE-HCASZ, HE-ZX-NDAVMF,) 400-2,000 mcg tab Take by mouth. collagen, bovine, 100 % powd Apply to affected area. Cranberry-Vitamin C-Vitamin E (CRANBERRY PLUS VITAMIN C) 140-100 mg cap Patient takes Cranberry with Vitamin C capsule that contains 15,000 mg Cranberry and 100mg Vitamin C Biotin 2,500 mcg cap Nurse reports patient taking 1500 mcg dose once daily (cannot find 1500mcg dose on menu) Miscellaneous Medical Supply mis [employer] (E08.40, Z79.4) Diabetes mellitus due [...] multivitamins(DAILY MULTIVITAMIN TAB) Take one(1) tablet daily. rosuvastatin (CRESTOR) 10 mg tablet Take 1 tablet by mouth daily at bedtime. As directed (Patient not taking: Reported on 05/27/2024) Pyridoxine HCl 250 mg tablet DAILY (Patient not taking: Reported on 05/27/2024) DULoxetine (CYMBALTA) 30 mg capsule Take 1 capsule by mouth once daily. Take with breakfast (Patient not taking: Reported on 05/27/2024) sertraline (ZOLOFT) 50 mg tablet Take 1 tablet by mouth once daily. fexofenadine (LYDIA) 180 mg tablet Take 1 tablet by mouth once daily. As directed for allergies (Patient not taking: Reported on 05/27/2024) No current facility-administered medications for this visit. Review of Systems Objective BP 128/68 Pulse 83 Temp 36.4 C (97.6 F) Resp 16 Wt 74.2 kg (163 lb 9.3 oz) SpO2 97% BMI 29.92 kg/m Physical Exam Constitutional: Appearance: Normal appearance. HENT: Head: Normocephalic. Eyes: Conjunctiva/sclera: Conjunctivae normal. Cardiovascular: Rate and Rhythm: Normal rate and regular rhythm. Heart sounds: Normal heart sounds. Pulmonary: Effort: Pulmonary effort is normal. Breath sounds: Normal breath sounds. Musculoskeletal: Right lower leg: Edema (Right ankle in walking boot) present. Left lower leg: Edema present. Skin: General: Skin is warm and dry. Neurological: General: No focal deficit present. Mental Status: She is alert and oriented to person, place, and time. Psychiatric: Mood and Affect: Mood normal. Behavior: Behavior normal. Thought Content: Thought content normal. Judgment: Judgment normal. Assessment and Plan # Anxiety (F41.9) - Refilled lorazepam prescription, sent to [facility] in [place] with a fill date of June 05 and added refills to prevent running out before the next appointment. # Essential hypertension (I10) - Blood pressure well-controlled at 120s/60s. - Refilled metoprolol prescription, sent to [facility]. 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 - Current insulin regimen includes NovoLog FlexPen: 55 units with breakfast, 28 units with lunch, 38 units with dinner; Lantus 22 units at bedtime. - Discussed the importance of adjusting insulin doses based on carbohydrate intake to prevent hypoglycemia. - Patient to follow up with Dr. Munguia next week for further management and potential consideration of an insulin pump. - Reviewed labs from January: A1c 8.2%, triglycerides 273 mg/dL, LDL 81 mg/dL. - Provided patient with a copy of lab results. # Stress incontinence (N39.3) - Scheduled for a procedure with Dr. Grimm this week to address stress incontinence. - Continues on cephalexin nightly for UTI prophylaxis. # Viral syndrome (B34.9) - Recent ER visit in April for viral syndrome with symptoms of headache, cough, nausea, vomiting, and diarrhea; treated with IV fluids, morphine, and Zofran. - CT abdomen showed no bowel obstruction, mild gastritis, hiatal hernia, and chronic esophagitis. - Advised to delay flu shot until after the upcoming procedure. # Right leg swelling (M79.89) - Mild edema noted in the right leg, more pronounced in the left leg due to boot use. - Advised elevating feet, maintaining adequate hydration, and monitoring salt intake. - Follow-up with Dr. Park on Sunday for further management. Alicia Blount MD documented in this encounter [facility] 05-01-2024 Telephone encounter Note Noted, agree with ER. Monitor for ER visit and schedule follow-up as needed. [facility] 05-01-2024 Miscellaneous Notes Noted, agree with ER. Monitor for ER visit and schedule follow-up as needed. Patient reports having constant moderate to severe headache for 5 days now. Tylenol gives no relief. Also having diarrhea, no appetite, nausea- feels like will vomit, whole body aches, fatigue. Patient sounds weak and tired when talking. 3 home covid tests were negative. Last covid test done . Patient has hx: stroke 2 yrs ago. Protocol recommends ER Now or pcp triage. Patient agreeable to ER and states her will take her. Reason for Disposition [1] SEVERE headache (e.g., excruciating) AND [2] worst headache of life Answer Assessment - Initial Assessment Questions 1. LOCATION: [place]. 2. ONSET: Sunday- 5 days ago. 3. PATTERN: Constant. Tylenol gives no relief. Hx: stroke 2 years ago. 4. SEVERITY: Seems like a migraine- moderate to severe. 5. RECURRENT SYMPTOM: Use to have migraines- but hasn't had migraines for 4 or 5 years. 6. CAUSE: 3 home covid tests were negative. Last covid test was Tues. No idea what's causing the headache and other symptoms. 7. MIGRAINE: Hx: migraines years ago. Feels like a migraine likes years ago. 8. HEAD INJURY: No 9. OTHER SYMPTOMS: Diarrhea- imodium is helping with this- 2 diarrhea stools in last 24 hours. No appetite but trying to eat, nausea- feels like she will vomit, but hasn't, whole body aches, fatigue. 10. : No. Protocols used: [id number] documented in this encounter [facility] 05-01-2024 Telephone encounter Note Patient reports having constant moderate to severe headache for 5 days now. Tylenol gives no relief. Also having diarrhea, no appetite, nausea- feels like will vomit, whole body aches, fatigue. Patient sounds weak and tired when talking. 3 home covid tests were negative. Last covid test done Tues. Patient has hx: stroke 2 yrs ago. Protocol recommends ER Now or pcp triage. Patient agreeable to ER and states her will take her. Reason for Disposition [1] SEVERE headache (e.g., excruciating) AND [2] worst headache of life Answer Assessment - Initial Assessment Questions 1. LOCATION: [place]. 2. ONSET: Sunday- 5 days ago. 3. PATTERN: Constant. Tylenol gives no relief. Hx: stroke 2 years ago. 4. SEVERITY: Seems like a migraine- moderate to severe. 5. RECURRENT SYMPTOM: Use to have migraines- but hasn't had migraines for 4 or 5 years. 6. CAUSE: 3 home covid tests were negative. Last covid test was Tues. No idea what's causing the headache and other symptoms. 7. MIGRAINE: Hx: migraines years ago. Feels like a migraine likes years ago. 8. HEAD INJURY: No 9. OTHER SYMPTOMS: Diarrhea- imodium is helping with this- 2 diarrhea stools in last 24 hours. No appetite but trying to eat, nausea- feels like she will vomit, but hasn't, whole body aches, fatigue. 10. : No. Protocols used: [id number] 04-28-2024 Telephone encounter Note Called to review the below instructions but patient is in a boot and is not safe to be on the treadmill. Patient states that she will call to reschedule after she sees her podiatry. Adela Pelletier RN You are scheduled for a stress test on 05/05/24 at 11:20am. Please follow below instructions: *NOTHING BY MOUTH 4 HOURS prior to this test. (you may have sips of water) *NO CAFFEINE FOR 24 HOURS PRIOR TO TESTING (including TEA even decaf, COFFEE- even decaf, CHOCOLATE, PACO- even decaf) *Do NOT take MEDICATIONS CONTAINING CAFFEINE/XANTHINE for 24 HOURS prior to testing: Theophylline, Trental, Excedrin, Anacin, Goody Powders, No Doz, Vivarin, Midol, Diurex, Fiorinal, Fioricet, Esgic (butalbital) *Do NOT take Calcium Channel Blockers 24 HOURS prior to test. *Do NOT take Beta blockers 24 HOURS prior to test UNLESS your doctor tells you otherwise. *Do NOT use the following medications 48 HOURS prior to this test: Viagra(Sildenafil citrate), Cialis(Tadalafil), Vardenafil (Levitra, Stanyx), Avanfil (Stendra). *Do not take any of these meds prior to test unless provider directs you otherwise; Nitroglycerine (ex:Deponit, Nitrostat) Isosorbide (ex:Isordil, Sorbitrate,Imdur,Ismo). Medications on your list you should hold for 24 HOURS: metoprolol *All other medications may be taken as you normally would. *Guidelines for Diabetics: If you take insulin to control your blood sugar, ask you physician what amount you should take the day of the test. If you take pills to control blood sugar, on the day of the test, do NOT take them until AFTER the test. *FAILURE TO FOLLOW THESE INSTRUCTIONS WILL RESULT IN HAVING TO RESCHEDULE THE TEST. *Please wear comfortable clothes with a short-sleeved shirt and comfortable walking shoes. You will be on the treadmill for this test. *If you use an inhaler, bring it along with you just in case. Please check in on the first floor at Radiology: [address]; [place] [address] * If you need to cancel or reschedule this test or have any questions regarding this test, please call [phone]. [facility] 04-28-2024 Miscellaneous Notes Called to review the below instructions but patient is in a boot and is not safe to be on the treadmill. Patient states that she will call to reschedule after she sees her podiatry. Adela Pelletier RN You are scheduled for a stress test on 05/05/24 at 11:20am. Please follow below instructions: *NOTHING BY MOUTH 4 HOURS prior to this test. (you may have sips of water) *NO CAFFEINE FOR 24 HOURS PRIOR TO TESTING (including TEA even decaf, COFFEE- even decaf, CHOCOLATE, PACO- even decaf) *Do NOT take MEDICATIONS CONTAINING CAFFEINE/XANTHINE for 24 HOURS prior to testing: Theophylline, Trental, Excedrin, Anacin, Goody Powders, No Doz, Vivarin, Midol, Diurex, Fiorinal, Fioricet, Esgic (butalbital) *Do NOT take Calcium Channel Blockers 24 HOURS prior to test. *Do NOT take Beta blockers 24 HOURS prior to test UNLESS your doctor tells you otherwise. *Do NOT use the following medications 48 HOURS prior to this test: Viagra(Sildenafil citrate), Cialis(Tadalafil), Vardenafil (Levitra, Stanyx), Avanfil (Stendra). *Do not take any of these meds prior to test unless provider directs you otherwise; Nitroglycerine (ex:Deponit, Nitrostat) Isosorbide (ex:Isordil, Sorbitrate,Imdur,Ismo). Medications on your list you should hold for 24 HOURS: metoprolol *All other medications may be taken as you normally would. *Guidelines for Diabetics: If you take insulin to control your blood sugar, ask you physician what amount you should take the day of the test. If you take pills to control blood sugar, on the day of the test, do NOT take them until AFTER the test. *FAILURE TO FOLLOW THESE INSTRUCTIONS WILL RESULT IN HAVING TO RESCHEDULE THE TEST. *Please wear comfortable clothes with a short-sleeved shirt and comfortable walking shoes. You will be on the treadmill for this test. *If you use an inhaler, bring it along with you just in case. Please check in on the first floor at Radiology: [address]; [place] [address] * If you need to cancel or reschedule this test or have any questions regarding this test, please call [phone]. documented in this encounter [facility] 03-18-2024 Telephone encounter Note Prescription Refill Information The patient has been identified by name and date of : Yes Caregiver verified no other encounters exist for this prescription request: Yes Caregiver confirmed with patient/requestor that no other refills are due, in the near future, with this provider at this time: Yes The last office visit in the department: 10/01/2023 Does the patient have a future office visit with this provider/department: Yes 05/27/2024 Requested Prescriptions Pending Prescriptions Disp Refills Acidophilus-Bif Animalis 10 billion cell cap 90 capsule 3 Sig: Take 1 capsule by mouth once daily. gabapentin (NEURONTIN) 300 mg capsule 180 capsule 1 Sig: Take 1 capsule by mouth two times a day for 180 days. Morning and bedtime esomeprazole (NEXIUM) 40 mg capsule 90 capsule 3 Sig: Take 1 capsule by mouth daily at 6 am. Mague Navarro March 18, 2024 2:[address] [facility] 03-18-2024 Miscellaneous Notes Prescription Refill Information The patient has been identified by name and date of : Yes Caregiver verified no other encounters exist for this prescription request: Yes Caregiver confirmed with patient/requestor that no other refills are due, in the near future, with this provider at this time: Yes The last office visit in the department: 10/01/2023 Does the patient have a future office visit with this provider/department: Yes 05/27/2024 Requested Prescriptions Pending Prescriptions Disp Refills Acidophilus-Bif Animalis 10 billion cell cap 90 capsule 3 Sig: Take 1 capsule by mouth once daily. gabapentin (NEURONTIN) 300 mg capsule 180 capsule 1 Sig: Take 1 capsule by mouth two times a day for 180 days. Morning and bedtime esomeprazole (NEXIUM) 40 mg capsule 90 capsule 3 Sig: Take 1 capsule by mouth daily at 6 am. Mague Navarro March 18, 2024 2:25 PM documented in this encounter [facility] 03-04-2024 Telephone encounter Note Called and left VM asking patient to call back. Please review the below instructions with the patient. Adela Pelletier RN You are scheduled for a stress test on 03/10/24 at 11:20am. Please follow below instructions: *NOTHING BY MOUTH 4 HOURS prior to this test. (you may have sips of water) *NO CAFFEINE FOR 24 HOURS PRIOR TO TESTING (including TEA even decaf, COFFEE- even decaf, CHOCOLATE, PACO- even decaf) *Do NOT take MEDICATIONS CONTAINING CAFFEINE/XANTHINE for 24 HOURS prior to testing: Theophylline, Trental, Excedrin, Anacin, Goody Powders, No Doz, Vivarin, Midol, Diurex, Fiorinal, Fioricet, Esgic (butalbital) *Do NOT take Calcium Channel Blockers 24 HOURS prior to test. *Do NOT take Beta blockers 24 HOURS prior to test UNLESS your doctor tells you otherwise. *Do NOT use the following medications 48 HOURS prior to this test: Viagra(Sildenafil citrate), Cialis(Tadalafil), Vardenafil (Levitra, Stanyx), Avanfil (Stendra). *Do not take any of these meds prior to test unless provider directs you otherwise; Nitroglycerine (ex:Deponit, Nitrostat) Isosorbide (ex:Isordil, Sorbitrate,Imdur,Ismo). Medications on your list you should hold for 24 HOURS: metoprolol *All other medications may be taken as you normally would. *Guidelines for Diabetics: If you take insulin to control your blood sugar, ask you physician what amount you should take the day of the test. If you take pills to control blood sugar, on the day of the test, do NOT take them until AFTER the test. *FAILURE TO FOLLOW THESE INSTRUCTIONS WILL RESULT IN HAVING TO RESCHEDULE THE TEST. *Please wear comfortable clothes with a short-sleeved shirt and appropriate walking shoes. You will be on the treadmill for this test. *If you use an inhaler, bring it along with you just in case. Please check in on the first floor at Radiology: [address]; [place] [address] * If you need to cancel or reschedule this test or have any questions regarding this test, please call [phone]. [facility] 03-04-2024 Miscellaneous Notes Called and left VM asking patient to call back. Please review the below instructions with the patient. Adela Pelletier RN You are scheduled for a stress test on 03/10/24 at 11:20am. Please follow below instructions: *NOTHING BY MOUTH 4 HOURS prior to this test. (you may have sips of water) *NO CAFFEINE FOR 24 HOURS PRIOR TO TESTING (including TEA even decaf, COFFEE- even decaf, CHOCOLATE, PACO- even decaf) *Do NOT take MEDICATIONS CONTAINING CAFFEINE/XANTHINE for 24 HOURS prior to testing: Theophylline, Trental, Excedrin, Anacin, Goody Powders, No Doz, Vivarin, Midol, Diurex, Fiorinal, Fioricet, Esgic (butalbital) *Do NOT take Calcium Channel Blockers 24 HOURS prior to test. *Do NOT take Beta blockers 24 HOURS prior to test UNLESS your doctor tells you otherwise. *Do NOT use the following medications 48 HOURS prior to this test: Viagra(Sildenafil citrate), Cialis(Tadalafil), Vardenafil (Levitra, Stanyx), Avanfil (Stendra). *Do not take any of these meds prior to test unless provider directs you otherwise; Nitroglycerine (ex:Deponit, Nitrostat) Isosorbide (ex:Isordil, Sorbitrate,Imdur,Ismo). Medications on your list you should hold for 24 HOURS: metoprolol *All other medications may be taken as you normally would. *Guidelines for Diabetics: If you take insulin to control your blood sugar, ask you physician what amount you should take the day of the test. If you take pills to control blood sugar, on the day of the test, do NOT take them until AFTER the test. *FAILURE TO FOLLOW THESE INSTRUCTIONS WILL RESULT IN HAVING TO RESCHEDULE THE TEST. *Please wear comfortable clothes with a short-sleeved shirt and appropriate walking shoes. You will be on the treadmill for this test. *If you use an inhaler, bring it along with you just in case. Please check in on the first floor at Radiology: [address]; [place] [address] * If you need to cancel or reschedule this test or have any questions regarding this test, please call [phone]. documented in this encounter [facility] 02-17-2024 History of Presen t illness Narrative Patient was seen about 5 days ago for cough congestion. Patient was treated with doxycycline and chest x-ray was negative. Patient is getting worse over time. Patient has now started vomiting. Patient says the medication does not seem to be helping at all. Time patient is being referred to the emergency room. Her will take her now. Patient was okay with this care plan patient needs a full evaluation. documented in this encounter [facility] 02-17-2024 Progress note Formatting of t his note might be different from the original. NSR. At OV encouraged to schedule appointment with cardiology. [facility] 02-17-2024 Miscellaneous Notes NSR. At OV encouraged to schedule appointment with cardiology. documented in this encounter [facility] 02-12-2024 History of Presen t illness Narrative Radiology Service Progress Note PATIENT NAME: Ana Ivory DATE OF SERVICE: February 12, 2024 TIME: 11:23 AM PATIENT IDENTITY VERIFICATION COMPLETED USING TWO (2) IDENTIFIERS: Name and Date of confirmed by patient verbally. FALL SCREENING: Has the patient had 2 falls in the last year or 1 fall with injury or currently using an Ambulatory Assistive Device (Walker, Cane, Wheelchair, Crutches, etc.)? No PATIENT GENDER DATA: Female. status: : No status: NO. PATIENT RELEVANT IMPLANT DATA REVIEWED: Not Applicable PATIENT PRESENTS WITH AN IMPLANTABLE OR ATTACHED AIR MOTOR REPAIRER: No RADIOLOGY DEPARTMENT: General X-ray: Exam(s) Completed: Chest X-Ray PERIPHERAL IV DATA: Not applicable SIGNED BY: RT Gardenia(R) February 12, 2024 11:23 AM documented in this encounter [facility] 02-12-2024 History of Presen t illness Narrative Subjective HPI HPI Ana Ivory is a 83 year old female who presents today for CC of cough, sinus pressure, wheezing. This started 5 days ago. Has tried otc medication for relief. Symptoms are worsened by nothing. Risk factors hx of lung surgery/cancer. Nonsmoker. .Patient presents with: Cough: Coughing, wheezing and sinus x 5 days PAST MEDICAL HISTORY Diagnosis Date Acute gastritis without mention of hemorrhage 10/31/2007 Adverse reaction to non-steroidal anti-inflammatory drug (NSAID) 03/28/2010 KATHERIN positive 03/04/2014 Gonzales's esophagus C. difficile diarrhea 10/18/2011 Cataract 04/17/2013 [facility], Dr. Dada Rodríguez. Mild cataract in L eye- no need for cataract surgery at this time. Continue to follow up the cataract. 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 At this time, we anticipate that [...] Boniva [Ibandronate], Carafate [Sucralfate], Ciprofloxacin, Codeine, Ibuprofen, Iodinated Contrast Media, Iodine, Lansoprazole, Macrobid [Nitrofurantoin Monohyd/M-Cryst], Metformin, Miconazole, Neosporin [Xgbhvxjy-Dwzxbiiopm-Thylppshn], Pioglitazone, Protonix [Pantoprazole], Relafen [Nabumetone], Shrimp, and Actos [Pioglitazone Hcl] MEDICATIONS cyanocobalamin 1,000 mcg/mL Inject intramuscularly once every month. LORazepam (ATIVAN) 1 mg tablet Take 0.5-1 tablets by mouth once daily as needed for up to 90 days. rosuvastatin (CRESTOR) 10 mg tablet Take 1 tablet by mouth daily at bedtime. As directed cephALEXin (KEFLEX) 250 mg capsule Take 250 mg by mouth daily at bedtime. esomeprazole (NEXIUM) 40 mg capsule Take 1 capsule by mouth daily at 6 am. insulin aspart U-100 (NOVOLOG FLEXPEN U-100 INSULIN) 100 unit/mL (3 mL) Inject 28 Units subcutaneously daily with breakfast AND 28 Units daily with lunch AND 28 Units daily with dinner. Adjust as directed. (Dr. Genny Munguia refills) Also has SSI. insulin glargine (LANTUS SOLOSTAR U-100 INSULIN) 100 unit/mL (3 mL) Inject 20 Units subcutaneously daily at bedtime. (Dr. Genny Munguia refills) gabapentin (NEURONTIN) 300 mg capsule Take 1 capsule by mouth two times a day for 180 days. Morning and bedtime Insulin Rochelle, Disposable, (BD ULTRA-FINE FOZIA PEN NEEDLE) 32 gauge x Use one needle for each dose, 4 times daily. Dx: Type 2 DM - Controlled E11.9 aspirin 81 mg cap Take by mouth. Pyridoxine HCl 250 mg tablet DAILY DULoxetine (CYMBALTA) 30 mg capsule Take 1 capsule by mouth once daily. Take with breakfast DULoxetine (CYMBALTA) 60 mg capsule Take 1 capsule by mouth daily at bedtime. metoprolol succinate ER (TOPROL XL) 200 mg 24 hr tablet Take 1 tablet by mouth once daily. Acidophilus-Bif Animalis 10 billion cell cap Take 1 capsule by mouth once daily. flash glucose scanning reader (FREESTYLE DONTRELL 2 READER) flash glucose sensor (FREESTYLE DONTRELL 14 DAY SENSOR) kit sertraline (ZOLOFT) 50 mg tablet Take 1 tablet by mouth once daily. vibegron (GEMTESA) 75 mg tablet Take 75 mg by mouth once daily. furosemide (LASIX) 20 mg tablet Take 1 tablet by mouth once daily. As directed for leg swelling VENTOLIN HFA 90 mcg/actuation inhaler INHALE 2 PUFFS BY MOUTH EVERY 6 HOURS NEEDED FOR SHORTNESS OF BREATH/WHEEZING fexofenadine (LYDIA) 180 mg tablet Take 1 tablet by mouth once daily. As directed for allergies TOVIAZ 4 mg Tb24 extended release tablet Take 4 mg by mouth once daily. For 30 days multivitamin-folic acid-biotin (KPFB-TIVC-QIWNL, CI-CF-JZFJAO,) 400-2,000 mcg tab Take by mouth. collagen, bovine, 100 % powd Apply to affected area. Cranberry-Vitamin C-Vitamin E (CRANBERRY PLUS VITAMIN C) 140-100 mg cap Patient takes Cranberry with Vitamin C capsule that contains 15,000 mg Cranberry and 100mg Vitamin C Biotin 2,500 mcg cap Nurse reports patient taking 1500 mcg dose once daily (cannot find 1500mcg dose on menu) Miscellaneous Medical Supply misc Custom Orthotics (E08.40, Z79.4) 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, with long-term current use of insulin vit C/E/Zn/coppr/lutein/zeaxan (PRESERVISION AREDS-2 ORAL) Take by mouth twice daily. COMPOUNDED PRESCRIPTION Custom orthotics (E08.40, Z79.4) 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, with long-term current use of insulin multivitamins(DAILY MULTIVITAMIN TAB) Take one(1) tablet daily. Cholecalciferol, Vitamin D3, 1,000 unit cap Take 2 capsules by mouth once daily. (Patient not taking: Reported on 02/12/2024) FAMILY HISTORY Problem Relation Age of Onset Heart Mother Cancer Mother Mesothelioma Cancer Father LUNG Hypertension Maternal Grandfather Osteoporosis Sister Heart Brother congenital heart problems Breast Cancer Sister Social History Tobacco Use Smoking status: Never Smokeless tobacco: Never Substance Use Topics Alcohol use: Yes Comment: 2-3 drinks/years Drug use: No Review of Systems Constitutional: Negative for fever. HENT: Positive for congestion, ear pain and sinus pain. Negative for nosebleeds and sore throat. Respiratory: Positive for cough and wheezing. Negative for shortness of breath. Cardiovascular: Negative for chest pain. Musculoskeletal: Negative for neck pain. Skin: Negative for itching and rash. Objective Blood pressure 132/80, pulse 82, temperature 36.3 C (97.3 F), temperature source Tympanic, resp. rate 18, weight 72.3 kg (159 lb 6.3 oz), SpO2 96%. Physical Exam Constitutional: General: She is not in acute distress. Appearance: She is not toxic-appearing or diaphoretic. HENT: Head: Normocephalic and atraumatic. Right Ear: Hearing, tympanic membrane, ear canal and external ear normal. Left Ear: Hearing, tympanic membrane, ear canal and external ear normal. Nose: Nose normal. Mouth/Throat: Pharynx: Uvula midline. No pharyngeal swelling, oropharyngeal exudate, posterior oropharyngeal erythema or uvula swelling. Eyes: General: Lids are normal. No scleral icterus. Right eye: No discharge. Left eye: No discharge. Conjunctiva/sclera: Conjunctivae normal. Pupils: Pupils are equal, round, and reactive to light. Neck: Trachea: Trachea normal. Cardiovascular: Rate and Rhythm: Normal rate and regular rhythm. Heart sounds: Normal heart sounds. Pulmonary: Effort: Pulmonary effort is normal. Breath sounds: Examination of the right-lower field reveals decreased breath sounds. Examination of the left-lower field reveals decreased breath sounds. Decreased breath sounds present. No wheezing, rhonchi or rales. Musculoskeletal: Cervical back: Normal range of motion and neck supple. Lymphadenopathy: Cervical: No cervical adenopathy. Right cervical: No superficial cervical adenopathy. Left cervical: No superficial cervical adenopathy. Skin: Findings: No rash. Neurological: Mental Status: She is alert and oriented to person, place, and time. ASSESSMENT/PLAN: 1. Sinobronchitis - ICD9: 473.9, 490, ICD10: J32.9, J40 (primary diagnosis) - Will begin treatment with as per antibiotic as written, see orders - Supportive care with plenty of fluids, rest, and analgesia prn. - Follow up in 3-5 days if symptoms persist or worsen. -If you experience chest pain/shortness of breath go to ER - DOXYCYCLINE HYCLATE 100 MG TABLET 2. Acute cough - ICD9: 786.2, ICD10: R05.1 - XR CHEST 2V FRONTAL/LAT IMPRESSION: No acute radiographic abnormality. Dictated by : DO Martin COHN APRN.CNP documented in this encounter [facility] 01-31-2024 Telephone encounter Note done [facility] 01-31-2024 Miscellaneous Notes done Carotid ultrasounds are done in vascular lab. Pt will need to be scheduled in vas lab. May we please have vascular lab orders placed. US Carotid Arteries [facility] Thank you very much! Yuli Bal RDMS documented in this encounter [facility] 01-31-2024 Telephone encounter Note Carotid ultrasounds are done in vascular lab. Pt will need to be scheduled in vas lab. May we please have vascular lab orders placed. US Carotid Arteries [facility] Thank you very much! Yuli Bal RDMS [facility] 01-31-2024 Instructions Clarence Berry APRN.CNS - 01/31/2024 11:02 AM EDT Be sure to drink plenty of fluids, aim for 64 ounces per day. Avoid being out in the severe heat. Wear compression stockings when sitting or standing for long periods of time. Please make an appointment with cardiology. Please wear supportive shoe wear and let your machine adjuster leader case trim know if you are not continuing to have ankle or foot discomfort. documented in this encounter [facility] 01-31-2024 History of Presen t illness Narrative SUBJECTIVE: RSV Vaccine(1 - 1-dose 60+ series) Never done DTaP,Tdap,Td Vaccine(2 - Td or Tdap) due on 03/22/2016 Covid-19 Vaccine(2022-24 season) due on 04/13/2023 Behavioral Health Screening Never done Dilated Retinal Exam due on 10/05/2023 Diabetic Foot Exam due on 01/30/2024 HPI Ana Ivory is a 83 year old female. PMH [...] Type 1 (Hcc) She was admitted to [facility] June 10 through June 12 for sepsis [...] PT and OT evaluation along with social economist prior to discharge. Continued on Glucerna shakes with meals for increased nutrition until taking oral consistently better. Discharged to SNF. Admit TCU 06/13/2023 to 06/20/2023 for rehabilitation prior to discharge home. She has [facility] home health care. There was a question [...] without report of problems at this time. Followed by Dr Munguia [facility] regarding DM. DIABETES MELLITUS: Without report of excessive thirst or increased frequency of urination, chest pain or dyspnea , numbness, tingling or pain in extremities, new or unusual visual symptoms, low sugar/hypoglycemic reactions, weight loss/gain, lightheadedness/dizziness, and bowel changes/loose stools. Patient's last HgA1C was Hemoglobin A1C (%) Date Value 01/31/2024 8.2 09/28/2023 8.0 03/29/2021 8.0 11/23/2020 7.3 Hemoglobin A1C (POCT) (%) Date Value 03/01/2021 7.9 HGB A1C (no units) Date Value 07/18/2021 7.4 ) Hyperlipidemia. Ms. Ivory reports doing well on current therapy Her most recent lipid panels are: Cholesterol, Total (mg/dL) Date Value 01/31/2024 177 09/28/2023 161 11/23/2020 163 10/20/2019 167 HDL Cholesterol (mg/dL) Date Value 01/31/2024 41 09/28/2023 46 11/23/2020 49 10/20/2019 54 LDL Cholesterol (mg/dL) Date Value 01/31/2024 81 09/28/2023 82 11/23/2020 82 10/20/2019 90 Triglyceride (mg/dL) Date Value 01/31/2024 273 09/28/2023 166 11/23/2020 160 10/20/2019 115 HTN: Without report of headache, chest pain, palpitations, dyspnea, peripheral edema, orthopnea, and PND. Last 3 Encounter BP Readings: Date: BP: 01/31/2024 148/82[bp average[ 12/09/2023 126/74 10/01/2023 128/80 Continues with lorazepam for anxiety. Effective. No adverse effects noted. Review of Systems Constitutional: Negative. Genitourinary: Positive for frequency. Negative for dysuria, hematuria and urgency. Psychiatric/Behavioral: The patient is nervous/anxious. Objective BP 148/82 Pulse 84 Resp 16 Wt 71.7 kg (158 lb) BMI 28.90 kg/m Physical Exam Vitals and nursing note reviewed. Constitutional: General: She is not in acute distress. Appearance: Normal appearance. She is not ill-appearing or diaphoretic. HENT: Head: Normocephalic. Eyes: General: Lids are normal. Conjunctiva/sclera: Conjunctivae normal. Left eye: No hemorrhage. Neck: Thyroid: No thyromegaly. Vascular: Normal carotid pulses. No carotid bruit or JVD. Cardiovascular: Rate and Rhythm: Normal rate and regular rhythm. Pulses: Carotid pulses are 2+ on the right side and 2+ on the left side. Radial pulses are 2+ on the right side and 2+ on the left side. Heart sounds: Normal heart sounds. Pulmonary: Effort: Pulmonary effort is normal. Breath sounds: Normal breath sounds. Abdominal: General: Bowel sounds are normal. Palpations: Abdomen is soft. Skin: General: Skin is warm and dry. Neurological: General: No focal deficit present. Mental Status: She is alert and oriented to person, place, and time. Gait: Gait normal. ALLERGIES Allergen Reactions Adhesive [...] Shrimp GI Upset Actos [Pioglitazone* Swelling Medications Current Outpatient Medications Medication Sig cyanocobalamin 1,000 mcg/mL Inject intramuscularly once every month. LORazepam (ATIVAN) 1 mg tablet Take 0.5-1 tablets by mouth once daily as needed for up to 90 days. rosuvastatin (CRESTOR) 10 mg tablet Take 1 tablet by mouth daily at bedtime. As directed esomeprazole (NEXIUM) 40 mg capsule Take 1 capsule by mouth daily at 6 am. insulin aspart U-100 (NOVOLOG FLEXPEN U-100 INSULIN) 100 unit/mL (3 mL) Inject 28 Units subcutaneously daily with breakfast AND 28 Units daily with lunch AND 28 Units daily with dinner. Adjust as directed. (Dr. Genny Munguia refjere) Also has SSI. insulin glargine (LANTUS SOLOSTAR U-100 INSULIN) 100 unit/mL (3 mL) Inject 20 Units subcutaneously daily at bedtime. (Dr. Genny Munguia refills) gabapentin (NEURONTIN) 300 mg capsule Take 1 capsule by mouth two times a day for 180 days. Morning and bedtime Insulin Rochelle, Disposable, (BD ULTRA-FINE FOZIA PEN NEEDLE) 32 gauge x 5/32 Use one needle for each dose, 4 times daily. Dx: Type 2 DM - Controlled E11.9 aspirin 81 mg cap Take by mouth. Pyridoxine HCl 250 mg tablet DAILY DULoxetine (CYMBALTA) 30 mg capsule Take 1 capsule by mouth once daily. Take with breakfast DULoxetine (CYMBALTA) 60 mg capsule Take 1 capsule by mouth daily at bedtime. metoprolol succinate ER (TOPROL XL) 200 mg 24 hr tablet Take 1 tablet by mouth once daily. Acidophilus-Bif Animalis 10 billion cell cap Take 1 capsule by mouth once daily. flash glucose scanning reader (FREESTYLE DONTRELL 2 READER) flash glucose sensor (FREESTYLE DONTRELL 14 DAY SENSOR) kit sertraline (ZOLOFT) 50 mg tablet Take 1 tablet by mouth once daily. vibegron (GEMTESA) 75 mg tablet Take 75 mg by mouth once daily. furosemide (LASIX) 20 mg tablet Take 1 tablet by mouth once daily. As directed for leg swelling VENTOLIN HFA 90 mcg/actuation inhaler INHALE 2 PUFFS BY MOUTH EVERY 6 HOURS NEEDED FOR SHORTNESS OF BREATH/WHEEZING fexofenadine (LYDIA) 180 mg tablet Take 1 tablet by mouth once daily. As directed for allergies TOVIAZ 4 mg Tb24 extended release tablet Take 4 mg by mouth once daily. For 30 days multivitamin-folic acid-biotin (WWQW-BDAF-IPEHB, PH-FA-LLJMUR,) 400-2,000 mcg tab Take by mouth. collagen, bovine, 100 % powd Apply to affected area. Cranberry-Vitamin C-Vitamin E (CRANBERRY PLUS VITAMIN C) 140-100 mg cap Patient takes Cranberry with Vitamin C capsule that contains 15,000 mg Cranberry and 100mg Vitamin C Biotin 2,500 mcg cap Nurse reports patient taking 1500 mcg dose once daily (cannot find 1500mcg dose on menu) Miscellaneous Medical Supply [facility] Custom Orthotics (E08.40, Z79.4) Diabetes mellitus due [...] multivitamins(DAILY MULTIVITAMIN TAB) Take one(1) tablet daily. cephALEXin (KEFLEX) 250 mg capsule Take 250 mg by mouth daily at bedtime. (Patient not taking: Reported on 01/31/2024) No current facility-administered medications for this visit. Latest Ref Rng 01/31/2024 Protein, Total 6.3 - 8.0 g/dL 7.3 Albumin 3.9 - 4.9 g/dL 4.2 Calcium 8.5 - 10.2 mg/dL 9.7 Bilirubin, Total 0.2 - 1.3 mg/dL 0.3 Alkaline Phosphatase 34 - 123 U/L 92 AST 13 - 35 U/L 27 ALT 7 - 38 U/L 16 Glucose 74 - 99 mg/dL 159 (H) BUN 7 - 21 mg/dL 15 Creatinine 0.58 - 0.96 mg/dL 0.82 Sodium 136 - 144 mmol/L 135 (L) Potassium 3.7 - 5.1 mmol/L 4.8 Chloride 98 - 107 mmol/L 102 CO2 22 - 30 mmol/L 23 Anion Gap 8 - 15 mmol/L 10 eGFR >=60 mL/min/1.73m 72 WBC 3.70 - 11.00 k/uL 7.10 RBC 3.90 - 5.20 m/uL 4.28 Hemoglobin 11.5 - 15.5 g/dL 13.7 Hematocrit 36.0 - 46.0 % 41.8 MCV 80.0 - 100.0 fL 97.7 MCH 26.0 - 34.0 pg 32.0 MCHC 30.5 - 36.0 g/dL 32.8 RDW-CV 11.5 - 15.0 % 13.7 Platelet Count 150 - 400 k/uL 277 MPV 9.0 - 12.7 fL 10.7 Absolute nRBC <0.01 k/uL <0.01 Cholesterol, Total <200 mg/dL 177 Triglyceride <150 mg/dL 273 (H) HDL Cholesterol >39 mg/dL 41 Non HDL Cholesterol <130 mg/dL 136 (H) Fasting Time hrs 3 VLDL Cholesterol <30 mg/dL 55 (H) TC:HDL Ratio <5.10 4.32 LDL Cholesterol <100 mg/dL 81 LDL:HDL Ratio <2.54 1.98 Creatinine, Ur Random (UCRR) 20.0 - 300.0 mg/dL 87.9 Albumin, Urine Random mg/L <12.0 Albumin/Creat Ratio <30 mg/g <14 Hemoglobin A1C 4.3 - 5.6 % 8.2 (H) Estimated Average Glucose mg/dL 189 Vitamin D 25 Hydroxy 31.0 - 80.0 ng/mL 50.6 Vitamin B12 232 - 1,245 pg/mL 1,724 (H) ASSESSMENT/PLAN: 1. 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 Screening for diabetic retinopathy - ICD9: V80.2, ICD10: Z13.5 - CONSULT TO OPHTHALMOLOGY 3. Chest pain, unspecified type - ICD9: 786.50, ICD10: R07.9 - STRESS ECHO TREADMILL - not yet completed - PERFLUTREN LIPID MICROSPHERES 1.1 MG/ML INJECTION IN NS 10 ML - SODIUM CHLORIDE 0.9 % (FLUSH) INJECTION SYRINGE - CONSULT TO CARDIOLOGY - ECG COMPLETE - in office NSR without ischemia or ectopy 4. Lightheadedness - ICD9: 780.4, ICD10: R42 - US CAROTID BILATERAL - not yet completed - US CAROTID ARTERIES [facility] 5. Syncope, unspecified syncope type - ICD9: 780.2, ICD10: R55 - US CAROTID BILATERAL - US CAROTID ARTERIES [facility] Be sure to drink plenty of fluids, aim for 64 ounces per day. Avoid being out in the severe heat. Wear compression stockings when sitting or standing for long periods of time. Please make an appointment with cardiology. - not yet scheduled unless going elsewhere/[facility]. Please wear supportive shoe wear and let your machine adjuster leader case trim know if you are not continuing to have ankle or foot discomfort. Clarence Berry APRN.CNS Medical Decision Making: Problems: Moderate: 1+ chronic illnesses with change Data: Unique test(s) ordered: 2 Medical Decision Making Level: 3 - Low documented in this encounter [facility] 01-15-2024 Telephone encounter Note The following approved medication requests have been transmitted electronically. Requested Prescriptions Signed Prescriptions Disp Refills LORazepam (ATIVAN) 1 mg tablet 30 tablet 2 Sig: Take 0.5-1 tablets by mouth once daily as needed for up to 90 days. Authorizing Provider: ALICIA BLOUNT MD [facility] 01-15-2024 Miscellaneous Notes The following approved medication requests have been transmitted electronically. Requested Prescriptions Signed Prescriptions Disp Refills LORazepam (ATIVAN) 1 mg tablet 30 tablet 2 Sig: Take 0.5-1 tablets by mouth once daily as needed for up to 90 days. Authorizing Provider: ALICIA BLOUNT MD Patient has been identified by name and date of : Yes, Provider Dr. Blount Date 01-14-24 Time 10:39a Patient phones for refill(s): Requested Prescriptions Pending Prescriptions Disp Refills LORazepam (ATIVAN) 1 mg tablet 30 tablet 2 Sig: Take 0.5-1 tablets by mouth once daily as needed for up to 90 days. Date of last office visit in primary care: 10/01/2023 Date of next office visit in primary care: 01/31/2024 Please advise. Thank you. Marisol Escobedo. documented in this encounter [facility] 01-14-2024 Telephone encounter Note Patient has been identified by name and date of : Yes, Provider Dr. Blount Date 01-14-24 Time 10:39a Patient phones for refill(s): Requested Prescriptions Pending Prescriptions Disp Refills LORazepam (ATIVAN) 1 mg tablet 30 tablet 2 Sig: Take 0.5-1 tablets by mouth once daily as needed for up to 90 days. Date of last office visit in primary care: 10/01/2023 Date of next office visit in primary care: 01/31/2024 Please advise. Thank you. Marisol Escobedo. [facility] 12-24-2023 Note Addended by: CLARENCE BERRY on: 12/24/2023 12:33 PM Modules accepted: Orders [facility] 12-24-2023 Miscellaneous Notes Addended by: CLARENCE BERRY on: 12/24/2023 12:33 PM Modules accepted: Orders Patient has been identified by name and date of : Yes, Provider Prashanthampshanika Patient phones for refill(s): Requested Prescriptions Pending Prescriptions Disp Refills rosuvastatin (CRESTOR) 10 mg tablet 90 tablet 3 Sig: Take 1 tablet by mouth daily at bedtime. As directed Date of last office visit in primary care: 10/01/2023 Date of next office visit in primary care: 01/31/2024 Please advise. Thank you. Nargis Escobedo. documented in this encounter [facility] 12-24-2023 Telephone encounter Note Patient has been identified by name and date of : Yes, Provider Jama Patient phones for refill(s): Requested Prescriptions Pending Prescriptions Disp Refills rosuvastatin (CRESTOR) 10 mg tablet 90 tablet 3 Sig: Take 1 tablet by mouth daily at bedtime. As directed Date of last office visit in primary care: 10/01/2023 Date of next office visit in primary care: 01/31/2024 Please advise. Thank you. Nargis Escobedo. [facility] 12-11-2023 Telephone encounter Note Patient given results and verbalized understanding of instructions given. Kasandra Cast LPN [facility] 12-11-2023 Miscellaneous Notes Patient given results and verbalized understanding of instructions given. Kasandra Cast LPN Urine culture reveals bacterial growth. The ATB selected is appropriate. Please complete. Follow up with PCP for continued sx. Please advise patient. documented in this encounter [facility] 12-11-2023 Telephone encounter Note Urine culture reveals bacterial growth. The ATB selected is appropriate. Please complete. Follow up with PCP for continued sx. Please advise patient. [facility] Work Phone: 12-09-2023 History of Presen t illness Narrative CC: Patient presents with: Urinary Frequency: burning and pain with urination x 2 days HPI Ana Ivory is a 83 year old female who presents with complaint of possible UTI. These symptoms have been present for 2 days. Associated symptoms: burning and frequency Denies: pressure, fever, chills, sweats, abdominal pain, and flank pain Treatments: nothing The ROS was otherwise negative. PMH, Medications, labs, allergies, and recent past visits with PCP were reviewed and updated as able. PHYSICAL EXAM: BP 126/74 Pulse 92 Temp 36.6 C (97.9 F) Resp 18 Wt 71 kg (156 lb 8.4 oz) SpO2 96% BMI 28.63 kg/m General: Well appearing and alert CV: Regular rate and rhythm without obvious murmur Lungs: clear to auscultation bilaterally Back: straight and symmetric Abdomen: soft, nontender, nondistended PAST MEDICAL HISTORY Diagnosis Date Acute gastritis without mention of hemorrhage 10/31/2007 Adverse reaction to non-steroidal anti-inflammatory drug (NSAID) 03/28/2010 KATHERIN positive 03/04/2014 Gonzales's esophagus C. difficile diarrhea 10/18/2011 Cataract 04/17/2013 [facility], Dr. Dada Rdoríguez. Mild cataract in L eye- no need for cataract surgery at this time. Continue to follow up the cataract. 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 At this time, we anticipate that [...] Boniva [Ibandronate], Carafate [Sucralfate], Ciprofloxacin, Codeine, Ibuprofen, Iodinated Contrast Media, Iodine, Lansoprazole, Macrobid [Nitrofurantoin Monohyd/M-Cryst], Metformin, Miconazole, Neosporin [Gyhxuobr-Oqfhnmuftl-Ijmrmkgkq], Pioglitazone, Protonix [Pantoprazole], Relafen [Nabumetone], Shrimp, and Actos [Pioglitazone Hcl] MEDICATIONS cephALEXin (KEFLEX) 250 mg capsule Take 250 mg by mouth daily at bedtime. esomeprazole (NEXIUM) 40 mg capsule Take 1 capsule by mouth daily at 6 am. insulin aspart U-100 (NOVOLOG FLEXPEN U-100 INSULIN) 100 unit/mL (3 mL) Inject 28 Units subcutaneously daily with breakfast AND 28 Units daily with lunch AND 28 Units daily with dinner. Adjust as directed. (Dr. Genny Munguia refills) Also has SSI. insulin glargine (LANTUS SOLOSTAR U-100 INSULIN) 100 unit/mL (3 mL) Inject 20 Units subcutaneously daily at bedtime. (Dr. Genny Munguia refills) gabapentin (NEURONTIN) 300 mg capsule Take 1 capsule by mouth two times a day for 180 days. Morning and bedtime Insulin Rochelle, Disposable, (BD ULTRA-FINE FOZIA PEN NEEDLE) 32 gauge x Use one needle for each dose, 4 times daily. Dx: Type 2 DM - Controlled E11.9 aspirin 81 mg cap Take by mouth. Pyridoxine HCl 250 mg tablet DAILY DULoxetine (CYMBALTA) 30 mg capsule Take 1 capsule by mouth once daily. Take with breakfast DULoxetine (CYMBALTA) 60 mg capsule Take 1 capsule by mouth daily at bedtime. atorvastatin (LIPITOR) 20 mg tablet metoprolol succinate ER (TOPROL XL) 200 mg 24 hr tablet Take 1 tablet by mouth once daily. Acidophilus-Bif Animalis 10 billion cell cap Take 1 capsule by mouth once daily. flash glucose scanning reader (FREESTYLE DONTRELL 2 READER) flash glucose sensor (FREESTYLE DONTRELL 14 DAY SENSOR) kit rosuvastatin (CRESTOR) 10 mg tablet Take 1 tablet by mouth daily at bedtime. As directed sertraline (ZOLOFT) 50 mg tablet Take 1 tablet by mouth once daily. vibegron (GEMTESA) 75 mg tablet Take 75 mg by mouth once daily. furosemide (LASIX) 20 mg tablet Take 1 tablet by mouth once daily. As directed for leg swelling VENTOLIN HFA 90 mcg/actuation inhaler INHALE 2 PUFFS BY MOUTH EVERY 6 HOURS NEEDED FOR SHORTNESS OF BREATH/WHEEZING fexofenadine (LYDIA) 180 mg tablet Take 1 tablet by mouth once daily. As directed for allergies TOVIAZ 4 mg Tb24 extended release tablet Take 4 mg by mouth once daily. For 30 days multivitamin-folic acid-biotin (MLJQ-LCQX-TISQH, [id number],) 400-2,000 mcg tab Take by mouth. collagen, bovine, 100 % powd Apply to affected area. Cranberry-Vitamin C-Vitamin E (CRANBERRY PLUS VITAMIN C) 140-100 mg cap Patient takes Cranberry with Vitamin C capsule that contains 15,000 mg Cranberry and 100mg Vitamin C Biotin 2,500 mcg cap Nurse reports patient taking 1500 mcg dose once daily (cannot find 1500mcg dose on menu) Miscellaneous Medical Supply misc Custom Orthotics (E08.40, [...] multivitamins(DAILY MULTIVITAMIN TAB) Take one(1) tablet daily. LORazepam (ATIVAN) 1 mg tablet Take 0.5-1 tablets by mouth once daily as needed for up to 90 days. FAMILY HISTORY Problem Relation Age of Onset Heart Mother Cancer Mother Mesothelioma Cancer Father LUNG Hypertension Maternal Grandfather Osteoporosis Sister Heart Brother congenital heart problems Breast Cancer Sister Social History Tobacco Use Smoking status: Never Smokeless tobacco: Never Substance Use Topics Alcohol use: Yes Comment: 2-3 drinks/years Drug use: No ASSESSMENT/PLAN: 1. Urinary frequency - ICD9: 788.41, ICD10: R35.0 - UA DIP, URINE (POC) - URINE CULTURE - SULFAMETHOXAZOLE 800 MG-TRIMETHOPRIM 160 MG TABLET Patient was allergic to Macrobid and currently taking Keflex every night at bedtime. Patient will hold the Keflex while taking the Bactrim. Prescription instructions reviewed with patient as applicable. Potential red flag symptoms discussed with the patient. Reviewed appropriate action plan to take if red flag symptoms occur. Patient agreeable to treatment plan. Antoinette Agrawal APRN.NEMESIO documented in this encounter [facility] 10-01-2023 History of Presen t illness Narrative This note was created using [employer]. Subjective Ana Ivory is a 83 year old female. Patient presents with: 4 mo follow up SUBJECTIVE: Ana Ivory is a 83 year old year old lady here today for 4 month follow up appointment for review of medical conditions. States that was taken over Jardiance since Dr. Munguia though might have caused hospitalization. But med was really helping with leg swelling. However, had a faulty sensor saying sugar was low. Sugars have been still in 200s. Was good in hospital--likes fish and that helped. PAST MEDICAL HISTORY Diagnosis Date Acute gastritis without mention of hemorrhage 10/31/2007 Adverse reaction to non-steroidal anti-inflammatory drug (NSAID) 03/28/2010 KATHERIN positive 03/04/2014 Gonzales's esophagus C. difficile diarrhea 10/18/2011 Cataract 04/17/2013 [facility] [place], Dr. Dada Rodríguez. Mild cataract in L eye- no need for cataract surgery at this time. Continue to follow up the cataract. 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 At this time, we anticipate that [...] care for assistance with chest tube to [facility] Return to [facility] on Sunday11/18/[address] [...] status migrainosus Current Outpatient Medications Medication Sig cephALEXin (KEFLEX) 250 mg capsule Take 250 mg by mouth daily at bedtime. gabapentin (NEURONTIN) 300 mg capsule Take 1 capsule by mouth two times a day for 180 days. Morning and bedtime Insulin Rochelle, Disposable, (BD ULTRA-FINE FOZIA PEN NEEDLE) 32 gauge x Use one needle for each dose, 4 times daily. Dx: Type 2 DM - Controlled E11.9 LORazepam (ATIVAN) 1 mg tablet Take 0.5-1 tablets by mouth once daily as needed for up to 90 days. aspirin 81 mg cap Take by mouth. Pyridoxine HCl 250 mg tablet DAILY DULoxetine (CYMBALTA) 30 mg capsule Take 1 capsule by mouth once daily. Take with breakfast DULoxetine (CYMBALTA) 60 mg capsule Take 1 capsule by mouth daily at bedtime. atorvastatin (LIPITOR) 20 mg tablet metoprolol succinate ER (TOPROL XL) 200 mg 24 hr tablet Take 1 tablet by mouth once daily. Acidophilus-Bif Animalis 10 billion cell cap Take 1 capsule by mouth once daily. flash glucose scanning reader (FREESTYLE DONTRELL 2 READER) flash glucose sensor (FREESTYLE DONTRELL 14 DAY SENSOR) kit rosuvastatin (CRESTOR) 10 mg tablet Take 1 tablet by mouth daily at bedtime. As directed VENTOLIN HFA 90 mcg/actuation inhaler INHALE 2 PUFFS BY MOUTH EVERY 6 HOURS NEEDED FOR SHORTNESS OF BREATH/WHEEZING TOVIAZ 4 mg Tb24 extended release tablet Take 4 mg by mouth once daily. For 30 days multivitamin-folic acid-biotin (ANAE-KPRE-RHYOL, [id number],) 400-2,000 mcg tab Take by mouth. collagen, bovine, 100 % powd Apply to affected area. Cranberry-Vitamin C-Vitamin E (CRANBERRY PLUS VITAMIN C) 140-100 mg cap Patient takes Cranberry with Vitamin C capsule that contains 15,000 mg Cranberry and 100mg Vitamin C vit C/E/Zn/coppr/lutein/zeaxan (PRESERVISION AREDS-2 ORAL) Take by mouth twice daily. Cholecalciferol, Vitamin D3, 1,000 unit cap Take 2 capsules by mouth once daily. multivitamins(DAILY MULTIVITAMIN TAB) Take one(1) tablet daily. esomeprazole (NEXIUM) 40 mg capsule Take 1 capsule by mouth daily at 6 am. insulin aspart U-100 (NOVOLOG FLEXPEN U-100 INSULIN) 100 unit/mL (3 mL) Inject 28 Units subcutaneously daily with breakfast AND 28 Units daily with lunch AND 28 Units daily with dinner. Adjust as directed. (Dr. Genny Munguia refills) Also has SSI. insulin glargine (LANTUS SOLOSTAR U-100 INSULIN) 100 unit/mL (3 mL) Inject 20 Units subcutaneously daily at bedtime. (Dr. Genny Munguia refills) sertraline (ZOLOFT) 50 mg tablet Take 1 tablet by mouth once daily. vibegron (GEMTESA) 75 mg tablet Take 75 mg by mouth once daily. furosemide (LASIX) 20 mg tablet Take 1 tablet by mouth once daily. As directed for leg swelling fexofenadine (LYDIA) 180 mg tablet Take 1 tablet by mouth once daily. As directed for allergies Biotin 2,500 mcg cap Nurse reports patient taking 1500 mcg dose once daily (cannot find 1500mcg dose on menu) Miscellaneous Medical Supply [facility] Custom Orthotics (E08.40, Z79.4) 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, with long-term current use of insulin COMPOUNDED PRESCRIPTION Custom orthotics (E08.40, Z79.4) 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, with long-term current use of insulin No current facility-administered medications for this visit. Review of Systems Objective BP 128/80 Pulse 74 Resp 16 Ht 157.5 cm (5' 2) Wt 67.1 kg (148 lb) BMI 27.07 kg/m Last 5 Encounter Wt Readings: Date: Wt: 10/01/2023 67.1 kg (148 lb) 07/02/2023 65.3 kg (144 lb) 06/06/2023 65.8 kg (145 lb) 06/04/2023 66.1 kg (145 lb 12.8 oz) 05/31/2023 65.8 kg (145 lb) No waist measurement recorded Estimated body mass index is 27.07 kg/m as calculated from the following: Height as of this encounter: 157.5 cm (5' 2). Weight as of this encounter: 67.1 kg (148 lb). Last 5 Encounter BP Readings: Date: BP: 10/01/2023 128/80 07/02/2023 139/78 06/06/2023 206/98 06/06/2023 156/73 06/04/2023 122/78 Physical Exam Constitutional: Appearance: Normal appearance. HENT: Head: Normocephalic. Eyes: Conjunctiva/sclera: Conjunctivae normal. Cardiovascular: Rate and Rhythm: Normal rate and regular rhythm. Heart sounds: Normal heart sounds. Pulmonary: Effort: Pulmonary effort is normal. Breath sounds: Normal breath sounds. Musculoskeletal: Right lower leg: Edema (trace ankle) present. Left lower leg: Edema (trace ankle) present. Skin: General: Skin is warm and dry. Neurological: General: No focal deficit present. Mental Status: She is alert and oriented to person, place, and time. Psychiatric: Mood and Affect: Mood normal. Behavior: Behavior normal. Thought Content: Thought content normal. Judgment: Judgment normal. Component Latest Ref Rng & Units 08/02/2022 01/26/2023 09/28/2023 WBC 3.70 - 11.00 k/uL 7.40 6.02 6.60 RBC 3.90 - 5.20 m/uL 4.13 4.44 4.07 Hemoglobin 11.5 - 15.5 g/dL 12.9 13.9 12.8 Hematocrit 36.0 - 46.0 % 37.8 40.8 37.8 MCV 80.0 - 100.0 fL 91.5 91.9 92.9 MCH 26.0 - 34.0 pg 31.2 31.3 31.4 MCHC 30.5 - 36.0 g/dL 34.1 34.1 33.9 RDW-CV 11.5 - 15.0 % 13.7 13.7 13.2 Platelet Count 150 - 400 k/uL 230 254 219 MPV 9.0 - 12.7 fL 9.8 9.8 9.7 Neut% % 55.4 Abs Neut (ANC) 1.45 - 7.50 k/uL 3.34 Lymph% % 29.7 Abs Lymph 1.00 - 4.00 k/uL 1.79 Ross% % 10.0 Abs Ross <0.87 k/uL 0.60 Eosin% % 4.0 Abs Eosin <0.46 k/uL 0.24 Baso% % 0.7 Abs Baso <0.11 k/uL 0.04 Immature Gran % % 0.2 IMMATURE GRANS (ABS) <0.10 k/uL <0.03 NRBC /100 WBC 0.0 Absolute nRBC <0.01 k/uL <0.01 <0.01 <0.01 DTYPE Auto Protein, Total 6.3 - 8.0 g/dL 6.8 7.3 6.6 Albumin 3.9 - 4.9 g/dL 4.3 4.4 4.0 Calcium 8.5 - 10.2 mg/dL 8.8 9.2 8.9 Bilirubin, Total 0.2 - 1.3 mg/dL 0.4 0.4 0.4 Alkaline Phosphatase 34 - 123 U/L 94 97 88 AST 13 - 35 U/L 19 15 13 ALT 7 - 38 U/L 17 14 12 Glucose 74 - 99 mg/dL 232 (H) 248 (H) 289 (H) BUN 7 - 21 mg/dL 17 14 15 Creatinine 0.58 - 0.96 mg/dL 0.69 0.81 0.68 Sodium 136 - 144 mmol/L 142 136 139 Potassium 3.7 - 5.1 mmol/L 4.1 4.0 4.3 Chloride 97 - 105 mmol/L 104 99 102 CO2 22 - 30 mmol/L 26 23 27 Anion Gap 9 - 18 mmol/L 12 14 10 eGFR >=60 mL/min/1.73m 88 73 88 Cholesterol, Total <200 mg/dL 222 (H) 160 161 Triglyceride <150 mg/dL 207 (H) 261 (H) 166 (H) HDL Cholesterol >39 mg/dL 43 41 46 Non HDL Cholesterol <130 mg/dL 179 (H) 119 115 Fasting Time hrs 10 12 12 VLDL Cholesterol <30 mg/dL 41 (H) 52 (H) 33 (H) TC:HDL Ratio <5.10 5.16 (H) 3.90 3.50 LDL Cholesterol <100 mg/dL 138 (H) 67 82 LDL:HDL Ratio <2.54 3.21 (H) 1.63 1.78 Creatinine, Ur Random (UCRR) 20.0 - 300.0 mg/dL 202.9 Albumin, Urine Random mg/L 19.5 Albumin/Creat Ratio <30 mg/g 10 Hemoglobin A1C 4.3 - 5.6 % 7.7 (H) 7.3 (H) 8.0 (H) Estimated Average Glucose mg/dL 174 163 183 Vitamin D 25 Hydroxy 31.0 - 80.0 ng/mL 59.5 55.2 46.6 Vitamin B6, Plasma 20.0 - 125.0 nmol/L 112.4 31.0 Assessment and Plan Encounter Diagnosis ICD-10-CM 1. 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, with long-term current use of insulin ([facility]) E08.40 ALBUMIN/CREAT RATIO RND UR Z79.4 CBC HGB A1C LIPID PANEL BASIC 3. 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 K22.70 esomeprazole (NEXIUM) 40 mg capsule 4. Gastroesophageal reflux disease with esophagitis K21.00 esomeprazole (NEXIUM) 40 mg capsule 5. Vitamin B6 deficiency E53.1 VITAMIN B6/PYRIDOXIN 6. Vitamin D deficiency E55.9 VITAMIN D 25 HYDROXY 7. Essential hypertension I10 COMP METABOLIC PANEL CBC 8. Encounter for long-term current use of medication Z79.899 COMP METABOLIC PANEL CBC HGB A1C LIPID PANEL BASIC VITAMIN D 25 HYDROXY VITAMIN B12 BLOOD VITAMIN B6/PYRIDOXIN Above issues addressed with patient. Above issues stable on current management. Continue present meds and management. Labs ordered as noted above. Further evaluation and treatment as indicated. Patient involved in shared decision making for management of medical issues. History and medications reviewed. Epic updated as needed Refills and/or prescriptions taken care of and meds adjusted as indicated after reviewed history, exam and labs. Health Maintenance reviewed. Updated record and/or ordered tests as recorded. Needs to keep working on diet and exercise with lifestyle changes for effective weight loss as well as control of DM, and control of BP and lipids. Noted HgA1C up from last time but okay given age 83yo. Alicia Blount MD documented in this encounter [facility] 09-28-2023 Miscellaneous Notes Filed order plus Vit D Patient at [facility] now, lab orders and she is wanting to still have them complete. HGBA1c, CMP, CBC, and lipd panel were previously ordered. Patient is waiting at lab now. Please advise. documented in this encounter [facility] 07-21-2023 Miscellaneous Notes Spoke with pt and [...] up to 90 days. Authorizing Provider: ALICIA BLOUNT MD Spoke to Patient, she is out [...] Rupali Muñoz Pss documented in this encounter [facility] 07-02-2023 History of Presen t illness Narrative Images from the original note were not included. SUBJECTIVE: Hepatitis B Vaccine(1 of 3 - Risk 3-dose series) Never done RSV Vaccine(1 - 1-dose 60+ series) Never done DTaP,Tdap,Td Vaccine(2 - Td or Tdap) due on 03/22/2016 Covid-19 Vaccine( season) due on 04/13/2023 HPI Ana Ivory is a 83 year old female. PMH [...] Type 1 (Hcc) She was admitted to [facility] June 10 through June 12 for sepsis [...] PT and OT evaluation along with social economist prior to discharge. Continued on Glucerna shakes with meals for increased nutrition until taking oral consistently better. Discharged to SNF. Admit TCU 06/13/2023 to 06/20/2023 for rehabilitation prior to discharge home. She has [facility] home health care. There was a question [...] seeing an orthopedic provider for ta pain, [facility] where she has gone before. Notes she did have an injury from a fingernail in this area remotely. Has appointment with Dr Don tomorrow. Followed by Dr Munguia [facility] regarding DM, has July appointment. Last [...] Date Value 07/18/2021 7.4 ) Hyperlipidemia. Ms. Ivory reports doing well on current therapy Her [...] Genny Munguia refjere) Also has SSI. Insulin Rochelle, Disposable, (BD ULTRA-FINE FOZIA PEN NEEDLE) 32 [...] once daily. For 30 days multivitamin-folic acid-biotin ([id number]-ERKMK, [id number],) 400-2,000 mcg tab Take by mouth. Insulin Rochelle, Disposable, (EASY TOUCH) 31 gauge x 3/16 Use 1 needle for each dose. 4x daily Miscellaneous Medical [employer] [facility] [employer] (E08.40, Z79.4) Diabetes mellitus due [...] (Patient not taking: Reported on 07/02/2023) fexofenadine (LYDIA) 180 mg tablet Take 1 tablet by [...] esophagus C. difficile diarrhea 10/18/2011 Cataract 04/17/2013 [facility], Dr. Dada Rodríguez. Mild cataract in L eye- no need for cataract surgery at this time. Continue to follow up the cataract. 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 At this time, we anticipate that [...] care for assistance with chest tube to [facility]. Return to [facility] on Sunday11/18/[address] [...] Abs Lymph 1.00 - 4.00 k/uL 1.79 Ross% % 10.0 Abs Ross <0.87 k/uL 0.60 Eosin% % 4.0 Abs [...] 799.3, ICD10: R53.81 (primary diagnosis) Admission TCU, [facility] following RN, PT Endorse walking hourly with [...] 4 - Moderate documented in this encounter [facility] 06-29-2023 Miscellaneous Notes Can review medications at [...] problems may continue unchanged. Isabella nurse @ [facility] calling with plan of care. Nursing [...] If medication change, please call Isabella @ [phone]. Jaqueline Jones RN documented in this encounter [facility] 06-29-2023 Miscellaneous Notes Noted, rosina Yury PT @ [facility] calling with plan of care. PT will see patient 2 x/week for three weeks for functional mobility. If agree, no call back needed. Jaqueline Jones RN documented in this encounter [facility] 06-06-2023 Note HNO ID: [id number] Author: Simran Ritchie RN Service: Nursing Author Type: Registered Nurse Type: Nursing Progress Note Filed: 06/06/2023 11:19 AM Note Text: Other: pt ready for OR, call light in reach, called to bedside. [facility] 06-06-2023 History and physical note Images from the original note were not included. HISTORY AND PHYSICAL Ana Ivory 1940 REFERRING PHYSICIAN: Clarence Berry APRN.SENIOR PATIENT ACCOUNT REPRESENTATIVE CHIEF COMPLAINT: Consult (EGD consultation.) HPI: The [...] esophagus C. difficile diarrhea 10/18/2011 Cataract 04/17/2013 [facility], Dr. Dada Rodríguez. Mild cataract in L eye- no need for cataract surgery at this time. Continue to follow up the cataract. 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 At this time, we anticipate that [...] 1 tablet by mouth once daily. Insulin Rochelle, Disposable, (BD ULTRA-FINE FOZIA PEN NEEDLE) 32 [...] HOURS NEEDED FOR SHORTNESS OF BREATH/WHEEZING fexofenadine (LYDIA) 180 mg tablet Take 1 tablet by mouth once daily. As directed for allergies TOVIAZ 4 mg Tb24 extended release tablet Take 4 mg by mouth once daily. For 30 days multivitamin-folic acid-biotin (WULV-QQPK-MVHDS, NW-SN-ZOLXEZ,) 400-2,000 mcg tab Take by mouth. CRANBERRY collagen, bovine, 100 % powd Apply to affected area. Insulin Rochelle, Disposable, (EASY TOUCH) 31 gauge x 3/16 Use 1 needle for each dose. 4x daily Cranberry-Vitamin C-Vitamin E (CRANBERRY PLUS VITAMIN C) 140-100 mg cap Patient takes Cranberry with Vitamin C capsule that contains 15,000 mg Cranberry and 100mg Vitamin C Biotin 2,500 mcg cap Nurse reports patient taking 1500 mcg dose once daily (cannot find 1500mcg dose on menu) Miscellaneous Medical [employer] [facility] [employer] (E08.40, Z79.4) Diabetes mellitus due [...] Iodine, Lansoprazole, Macrobid [Nitrofurantoin Monohyd/M-Cryst], Metformin, Neosporin [Zfjkggme-Ewuuwtzhho-Ozkyameki], Protonix [Pantoprazole], Relafen [Nabumetone], Shrimp, and Actos [...] entered by the nurse and reviewed by ms Nursing Notes: Debra Couch RN 06/04/2023 10:04 [...] C (97.8 F), height 157.5 cm (5' 2), weight 66.1 kg (145 lb 12.8 oz), [...] will be scheduled for the procedure at [facility]. She chooses to have procedure done by [...] Erik Underwood III, MD PATIENT NAME: Ana Ivory DATE: June 06, 2023 TIME: 11:56 AM documented in this encounter [facility] 06-06-2023 Nurse Note Other: pt ready for OR, call light in reach, called to bedside. documented in this encounter [facility] 06-05-2023 Miscellaneous Notes Pt called and is [...] high than low. documented in this encounter [facility] 06-04-2023 History of Presen t illness Narrative HISTORY AND PHYSICAL Ana Ivory 1940 REFERRING PHYSICIAN: Clarence Berry APRN.SENIOR PATIENT ACCOUNT REPRESENTATIVE CHIEF COMPLAINT: Consult (EGD consultation.) HPI: The [...] esophagus C. difficile diarrhea 10/18/2011 Cataract 04/17/2013 [facility], Dr. Dada Rodríguez. Mild cataract in L eye- no need for cataract surgery at this time. Continue to follow up the cataract. 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 At this time, we anticipate that [...] 1 tablet by mouth once daily. Insulin Rochelle, Disposable, (BD ULTRA-FINE FOZIA PEN NEEDLE) 32 gauge x 5/ Use one needle for each dose, 4 [...] HOURS NEEDED FOR SHORTNESS OF BREATH/WHEEZING fexofenadine (LYDIA) 180 mg tablet Take 1 tablet by mouth once daily. As directed for allergies TOVIAZ 4 mg Tb24 extended release tablet Take 4 mg by mouth once daily. For 30 days multivitamin-folic acid-biotin (CFWI-GIHL-LAEAX, YQ-OK-QTYRAW,) 400-2,000 mcg tab Take by mouth. CRANBERRY collagen, bovine, 100 % powd Apply to affected area. Insulin Rochelle, Disposable, (EASY TOUCH) 31 gauge x 3/16 Use 1 needle for each dose. 4x daily Cranberry-Vitamin C-Vitamin E (CRANBERRY PLUS VITAMIN C) 140-100 mg cap Patient takes Cranberry with Vitamin C capsule that contains 15,000 mg Cranberry and 100mg Vitamin C Biotin 2,500 mcg cap Nurse reports patient taking 1500 mcg dose once daily (cannot find 1500mcg dose on menu) Miscellaneous Medical [employer] [facility] [employer] (E08.40, Z79.4) Diabetes mellitus due [...] Iodine, Lansoprazole, Macrobid [Nitrofurantoin Monohyd/M-Cryst], Metformin, Neosporin [Jetlyfid-Nuchcypatm-Qlhwkiwgg], Protonix [Pantoprazole], Relafen [Nabumetone], Shrimp, and Actos [...] entered by the nurse and reviewed by ms Nursing Notes: Debra Couch RN 06/04/2023 10:04 [...] C (97.8 F), height 157.5 cm (5' 2), weight 66.1 kg (145 lb 12.8 oz), [...] will be scheduled for the procedure at [facility]. She chooses to have procedure done by [...] Radha Balderrama MD documented in this encounter [facility] 06-04-2023 Nurse Note REVIEW OF SYSTEMS: General: [...] Debra Couch RN documented in this encounter [facility] 05-31-2023 Instructions Clarence Berry APRN.[facility] - 05/31/2023 9:53 AM EDT Consider vaccines: Tdap, influenza, Covid booster, hepatitis B vaccine. 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 Due for EGD in 2023 or 2024. documented in this encounter [facility] 05-31-2023 History of Presen t illness Narrative SUBJECTIVE: Hepatitis B Vaccine(1 of 3 - Risk 3-dose series) Never done RSV Vaccine(1 - 1-dose 60+ series) Never done DTaP,Tdap,Td Vaccine(2 - Td or Tdap) due on 03/22/2016 Influenza Vaccine(1) due on 04/13/2023 Covid-19 Vaccine( season) due on 04/13/2023 HPI Ana Ivory is a 83 year old female. PMH [...] Bronchiectasis Without Complication (Hcc) Seen by Alicia Blount MD January 2023. Zoledronic acid ordered. Has not yet had infusion. Followed by Dr Bran [employer]. History of carcinoid bronchial adenoma, left, s/p [...] Date Value 07/18/2021 7.4 ) Hyperlipidemia. Ms. Ivory reports doing well on current therapy Her [...] No sensory deficit. Motor: No weakness. Coordination: Usoqgz-Brml-Ttghap Test normal. Gait: Gait normal. ALLERGIES Allergen [...] 1 tablet by mouth once daily. Insulin Rochelle, Disposable, (BD ULTRA-FINE FOZIA PEN NEEDLE) 32 [...] HOURS NEEDED FOR SHORTNESS OF BREATH/WHEEZING fexofenadine (LYDIA) 180 mg tablet Take 1 tablet by mouth once daily. As directed for allergies TOVIAZ 4 mg Tb24 extended release tablet Take 4 mg by mouth once daily. For 30 days multivitamin-folic acid-biotin (WIPA-DBSF-LQQMM, MF-HH-VCAXPE,) 400-2,000 mcg tab Take by mouth. CRANBERRY collagen, bovine, 100 % powd Apply to affected area. Insulin Rochelle, Disposable, (EASY TOUCH) 31 gauge x 3/16 Use 1 needle for each dose. 4x daily Cranberry-Vitamin C-Vitamin E (CRANBERRY PLUS VITAMIN C) 140-100 mg cap Patient takes Cranberry with Vitamin C capsule that contains 15,000 mg Cranberry and 100mg Vitamin C Biotin 2,500 mcg cap Nurse reports patient taking 1500 mcg dose once daily (cannot find 1500mcg dose on menu) Miscellaneous Medical Supply [facility] [employer] (E08.40, Z79.4) Diabetes mellitus due [...] esophagus C. difficile diarrhea 10/18/2011 Cataract 04/17/2013 [facility], Dr. Dada Rodríguez. Mild cataract in L eye- no need for cataract surgery at this time. Continue to follow up the cataract. 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 At this time, we anticipate that [...] care for assistance with chest tube to [facility]. Return to [facility] on Sunday11/18/[address] [...] Abs Lymph 1.00 - 4.00 k/uL 1.79 Ross% % 10.0 Abs Ross <0.87 k/uL 0.60 Eosin% % 4.0 Abs [...] C7A.090 Stable, no recent exacerbation. Followed by [employer] 3. Encounter for immunization - ICD9: V03.89, ICD10: Z23 - RSV PRINTED PHARMACY INSTRUCTIONS - TDAP PRINTED PHARMACY INSTRUCTIONS - INFLUENZA VACCINE, PRSV FREE, AGE 65+ YR, HIGH DOSE, QUADRIVALENT (FLUZONE HIGH-DOSE) - [employer] COVID-19 VACCINE ( SEASON) AGE 12+ YR - HEP B [...] 4 - Moderate documented in this encounter [facility] 04-08-2023 Instructions Navya Thrasher APRN.CNP - 04/08/2023 12:58 PM EDT For ear pain- Flonase nasal spray daily. Can also take over the counter analgesics such as Tylenol or ibuprofen unless you have been told otherwise documented in this encounter [facility] 04-08-2023 History of Presen t illness Narrative CC: Patient presents with: Ear Pain: Right ear pain x 1 day HPI: Ana Ivory is a 82 year old female who [...] occur. Patient agreeable to treatment plan. Navya Thrasher APRN.CNP documented in this encounter [facility] 04-06-2023 Miscellaneous Notes Spoke with pt and information listed below given. Pt verbalizes understanding. Pt starting back on medication today. Chelys Valverde LPN She has has refills on [...] approved to continue Call back at phone [phone] Pt called to let you know her [...] Chelsy Valverde LPN documented in this encounter [facility] 02-08-2023 Miscellaneous Notes Duplicate request. Juana Muro [...] advise. ARTURO Silva documented in this encounter [facility] 01-25-2023 Miscellaneous Notes Orders placed as requested. Quiana Thrasher APRN.NEMESIO Pt at [facility] now lab orders due. Please file. Pt has appt 01/29/23 with pcp documented in this encounter [facility] 01-01-2023 History of Presen t illness Narrative Radiology Service Progress Note PATIENT NAME: Ana Ivory DATE OF SERVICE: January 01, 2023 TIME: [...] RT Gardenia(R) January 01, 2023 11:34 AM documented in this encounter [facility] 10-17-2022 History of Presen t illness Narrative SUBJECTIVE: BP CONTROLLED (<130/80) due on 04/25/2020 DIABETIC FOOT EXAM due on 03/01/2022 ADVANCE DIRECTIVE DISCUSSION due on 08/13/2022 DEPRESSION ASSESSMENT Never done HPI Ana Ivory is a 82 year old female. PMH [...] excerpted from previous visit: Seen by Alicia Blount MD 09/30/2022. Presented for routine visit. On arrival indicates she had a fall on stairs, 3 steps. Note hit her body mostly on the wall then fell backwards and hit tailbone on the ledge and hit head on the floor. Notes jaw and caodaism hurt. Impression was no sign of fracture or concussion. Advised to treat pain and inflammation with naproxen, hydrocodone for breakthrough pain. She was treated with hydrocodone. Ana Ivory presents to follow up after her fall [...] taking naproxen or Tylenol currently. Has used [employer] intermittently which has helped with pain. She [...] her arms. Celebrex does help. Does use [employer] as needed for breakthrough pain. Using pressure [...] No sensory deficit. Motor: No weakness. Coordination: Ufipnk-Ueug-Smzdcq Test normal. Gait: Gait normal. ALLERGIES Allergen [...] mouth once daily.^Disp: 90 tablet^Rfl: 3 Insulin Rochelle, Disposable, (BD ULTRA-FINE FOZIA PEN NEEDLE) 32 [...] mouth once daily.^Disp: 90 capsule^Rfl: 3 fexofenadine (LYDIA) 180 mg tablet^Take 1 tablet by mouth once daily. As directed for allergies^Disp: ^Rfl: esomeprazole (NEXIUM) 40 mg capsule^Take 1 capsule by mouth DAILY (6 AM).^Disp: 90 capsule^Rfl: 3 TOVIAZ 4 mg Tb24 extended release tablet^Take 4 mg by mouth once daily. For 30 days^Disp: ^Rfl: multivitamin-folic acid-biotin (EVXB-EMAO-FDWZZ, NV-ST-RWCNBI,) 400-2,000 mcg tab^Take by mouth.^Disp: ^Rfl: CRANBERRY^ ^Disp: ^Rfl: collagen, bovine, 100 % powd^Apply to affected area.^Disp: ^Rfl: Insulin Rochelle, Disposable, (EASY TOUCH) 31 gauge x 3/16^Use 1 needle for each dose. 4x daily^Disp: [...] esophagus C. difficile diarrhea 10/18/2011 Cataract 04/17/2013 [facility], Dr. Dada Rodríguez. Mild cataract in L eye- no need for cataract surgery at this time. Continue to follow up the cataract. 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 At this time, we anticipate that [...] MG-ACETAMINOPHEN 325 MG TABLET 3. Contusion of caodaism region, initial encounter - ICD9: 920, ICD10: [...] arousable. Improved pain control with Celebrex and [employer] for breakthrough. Qfzf-fgp-btefurg constipation remedy advised when taking hydrocodone. She defers physical therapy for now, prefers to see a chiropractor first. ER for any severe or concerning symptoms Clarence Berry APRN.SENIOR PATIENT ACCOUNT REPRESENTATIVE Medical Decision Making: Problems: Moderate: Acute illness with systemic symptoms Risk: Moderate: Drug management Medical Decision Making Level: 4 - Moderate documented in this encounter [facility] 10-11-2022 Miscellaneous Notes Ana Ivory [place]: [email or web address] - GISELE - Rx #: [id number] help? Call us at Outcome Approvedtoday PA Case: [id number], Status: Approved, Coverage Starts on: 08/13/2022 12:00:00 AM, Coverage Ends on: 08/12/2023 12:00:00 AM. Questions? Contact . Pharmacy notified. Ana Ivory ([place]: [email or web address]) - [id number] HYDROcodone-Acetaminophen 5-325MG tablets Status: PA Request Created: October 10, 2022 [id number] Sent: October 11, 2022 documented in this encounter [facility] 10-10-2022 History of Presen t illness Narrative Radiology Service Progress Note PATIENT NAME: Ana Ivory DATE OF SERVICE: October 10, 2022 TIME: [...] 2022 2:32 PM documented in this encounter [facility] 10-10-2022 History of Presen t illness Narrative SUBJECTIVE: BP CONTROLLED (<130/80) due on 04/25/2020 DIABETIC FOOT EXAM due on 03/01/2022 ADVANCE DIRECTIVE DISCUSSION due on 08/13/2022 DEPRESSION ASSESSMENT Never done HPI Ana Ivory is a 82 year old female. PMH [...] (Tmj) Chronic Cough Neuropathy Seen by Alicia Blount MD 09/30/2022. Presented for routine visit. On arrival indicates she had a fall on stairs, 3 steps. Note hit her body mostly on the wall then fell backwards and hit tailbone on the ledge and hit head on the floor. Notes jaw and caodaism hurt. Impression was no sign of fracture or concussion. Advised to treat pain and inflammation with naproxen, hydrocodone for breakthrough pain. She was treated with hydrocodone. Ana Ivory presents to follow up after her fall [...] taking naproxen or Tylenol currently. Has used [employer] intermittently which has helped with pain. She [...] No sensory deficit. Motor: No weakness. Coordination: Mnvrrm-Imub-Jzvhxq Test normal. Gait: Gait normal. ALLERGIES Allergen [...] mouth once daily.^Disp: 90 tablet^Rfl: 3 Insulin Rochelle, Disposable, (BD ULTRA-FINE FOZIA PEN NEEDLE) 32 gauge x /32^Use one needle for each dose, 4 times [...] mouth once daily.^Disp: 90 capsule^Rfl: 3 fexofenadine (LYDIA) 180 mg tablet^Take 1 tablet by mouth once daily. As directed for allergies^Disp: ^Rfl: esomeprazole (NEXIUM) 40 mg capsule^Take 1 capsule by mouth DAILY (6 AM).^Disp: 90 capsule^Rfl: 3 TOVIAZ 4 mg Tb24 extended release tablet^Take 4 mg by mouth once daily. For 30 days^Disp: ^Rfl: multivitamin-folic acid-biotin (IXLG-MPDP-ADLXK, XN-DL-DTOVRC,) 400-2,000 mcg tab^Take by mouth.^Disp: ^Rfl: CRANBERRY^ ^Disp: ^Rfl: collagen, bovine, 100 % powd^Apply to affected area.^Disp: ^Rfl: Insulin Rochelle, Disposable, (EASY TOUCH) 31 gauge x 3/16^Use 1 needle for each dose. 4x daily^Disp: [...] esophagus C. difficile diarrhea 10/18/2011 Cataract 04/17/2013 [facility], Dr. Dada Rodríguez. Mild cataract in L eye- no need for cataract surgery at this time. Continue to follow up the cataract. 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 At this time, we anticipate that [...] MG-ACETAMINOPHEN 325 MG TABLET 3. Contusion of caodaism region, initial encounter - ICD9: 920, ICD10: [...] needed for breakthrough pain and at bedtime. Bxvz-rvm-eixjffd constipation remedy advised when taking hydrocodone. ER for any severe or concerning symptoms Clarence Berry APRN.SENIOR PATIENT ACCOUNT REPRESENTATIVE Medical Decision Making: Problems: Moderate: Acute illness with systemic symptoms Data: Unique test(s) ordered: 1 Risk: Moderate: Drug management Medical Decision Making Level: 4 - Moderate documented in this encounter [facility] 09-30-2022 Instructions Alicia Blount MD - 09/30/2022 10:36 AM EST Decrease supper time insulin since having lows under 70--try decreasing to 20 units then titrate back up if sugar going over 180 at bedtime. Goal in AM is sugar under 150. Nonfasting sugars--under 180 documented in this encounter [facility] 09-30-2022 History of Presen t illness Narrative Images from the original note were not included. This note was created using SezWho. Subjective Ana Ivory is a 82 year old female. Patient presents with: Recheck: 4 month follow up SUBJECTIVE: Ana Ivory is a 82 year old year old [...] floor. Right side of jaw hurts and caodaism. Hurts a little to chew. Better today [...] esophagus C. difficile diarrhea 10/18/2011 Cataract 04/17/2013 [facility], Dr. Dada Rodríguez. Mild cataract in L eye- no need for cataract surgery at this time. Continue to follow up the cataract. 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 At this time, we anticipate that [...] mouth daily at bedtime. As directed Insulin Rochelle, Disposable, (BD ULTRA-FINE FOZIA PEN NEEDLE) 32 [...] 1 capsule by mouth once daily. fexofenadine (LYDIA) 180 mg tablet Take 1 tablet by [...] once daily. For 30 days multivitamin-folic acid-biotin (DTWT-CSYL-ZBCAW, QR-XD-EPGKLL,) 400-2,000 mcg tab Take by mouth. CRANBERRY collagen, bovine, 100 % powd Apply to affected area. insulin glargine (LANTUS SOLOSTAR U-100 INSULIN) 100 unit/mL (3 mL) Inject 18 Units subcutaneously daily at bedtime. (Dr. Genny funes) (Patient taking differently: Inject 20 Units subcutaneously daily at bedtime. (Dr. Genny funes)) Insulin Rochelle, Disposable, (EASY TOUCH) 31 gauge x 3/16 [...] taking: No sig reported) Miscellaneous Medical Supply [facility] [employer] (E08.40, Z79.4) Diabetes mellitus due [...] neuropathy, with long-term current use of insulin ([facility]) E08.40 Z79.4 2. Contusion of right foot, initial encounter S90.31XA HYDROcodone-acetaminophen (NORCO) 5-325 mg per tablet plantar toes 3. Contusion of caodaism region, initial encounter S00.83XA HYDROcodone-acetaminophen (NORCO) 5-325 [...] the date of the service which included yqbb-cm-jici patient care, completing clinical documentation, obtaining and/or reviewing separately obtained history, performing a medically appropriate examination, counseling and educating the patient/family/caregiver, ordering medications, tests, or procedures, and communicating results to the patient/family/caregiver. Alicia Blount MD documented in this encounter [facility] 08-21-2022 Miscellaneous Notes Patient notified of below results/recommendations, verbalized understanding. Patient is not taking Crestor every evening, reviewed dosage instructions with Patient, she will check to see if she needs a refill & call if needed;. Juana Muro LPN ----- Message from Alicia Blount MD sent at 08/20/2022 11:17 PM EST [...] before next appointment. documented in this encounter [facility] 08-15-2022 Procedure note [facility] 08-02-2022 Miscellaneous Notes Filed order Patient is at [facility] lab today requesting lab orders. Lab is stating they are not able to pull these order until NEXT July. Please review and file. documented in this encounter [facility] 06-28-2022 Miscellaneous Notes Spoke with pt and information listed below given. Pt verbalizes understanding. Chelsy Valverde LPN The following approved medication requests have been transmitted electronically. Requested Prescriptions Signed Prescriptions Disp Refills gabapentin (NEURONTIN) 300 mg capsule 180 capsule 1 Sig: Take 1 capsule by mouth twice daily for 180 days. Morning and bedtime Authorizing Provider: ALICIA BLOUNTas, MD Below noted. Lyrica taken off medlist Patient asking for the status of her request for medication gabapentin. Patient wanting this medication sent to [facility] in [place]. Please call patient when complete. Patient is requesting to go back on the Gabapentin rather then refill the lyrica. She states she was on the lyrica for some time switched to the gabapentin and then back to the lyrica but feels gabapentin does better. She uses [facility] in [place]. documented in this encounter [facility] 06-16-2022 Miscellaneous Notes Faxed ECHO results to Dr. Bran, [facility] Pulm ([phone]), and Dr. Munguia, [facility] Endo ([phone]) per patient request. documented in this encounter [facility] 06-16-2022 Miscellaneous Notes Patient has been identified [...] Eris Keene RN documented in this encounter [facility] 05-31-2022 Miscellaneous Notes Noted Patient returned call and went over notes below from Dr Blount, Printed copy of ECHO and faxed to Dr Bran [phone] genny Munguia [phone]. Patient said she will see what those [...] ejection fraction. If she prefers to see machine farmworker in [facility], can go to [facility] since goes to providers at [facility] already. If she has had no acute changes in SOB or swelling and wants to wait to discuss at July appointment, that is fine too unless Dr. Munguia or Dr. Bran think she needs work up sooner than then. Patient calling she had appt today with Dr Genny Munguia ,[facility]. Dr Munguia wanted patient to call [...] done? Please advise documented in this encounter [facility] 05-17-2022 Miscellaneous Notes Patient notified.Suma Shepard LPN Let patient know their covid19/influenza test was negative. documented in this encounter [facility] 05-16-2022 Instructions Kaci Savage APRN.NMEESIO - 05/16/2022 11:04 AM EDT ASSESSMENT/PLAN: 1. [...] virtual appointment or schedule an appointment with [facility]. - Follow-up with your PCP in 3-5 days if symptoms have not improved or sooner if symptoms worsen - Discussed red flags and need for immediate medical evaluation if any occur. - Discussed supportive care treatment with fluids, rest and analgesia. - Discussed expected course of illness aKci Savage APRN.GREENSKEEPER HEAD Beginning Home Isolation Isolation is used to [...] to your local emergency facility: Notify the cracker and cookie machine operator that you are seeking care for someone [...] concerning to you. documented in this encounter [facility] 05-16-2022 History of Presen t illness Narrative Subjective HPI Ana Ivory is a 82 year old female who [...] esophagus C. difficile diarrhea 10/18/2011 Cataract 04/17/2013 [facility], Dr. Dada Rodríguez. Mild cataract in L eye- no need for cataract surgery at this time. Continue to follow up the cataract. 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 At this time, we anticipate that [...] care for assistance with chest tube to [facility]. Return to OPD on Sunday11/18/[address] [...] Iodine, Lansoprazole, Macrobid [Nitrofurantoin Monohyd/M-Cryst], Metformin, Neosporin [Jlxbuurj-Hxovzkkcoz-Aocxnzojf], Protonix [Pantoprazole], Relafen [Nabumetone], Shrimp, and Actos [...] mouth once daily.^Disp: 90 capsule^Rfl: 3 fexofenadine (LYDIA) 180 mg tablet^Take 1 tablet by mouth [...] daily. For 30 days^Disp: ^Rfl: multivitamin-folic acid-biotin (WGRH-KGJT-PKMTA, HJ-BT-EUHQQB,) 400-2,000 mcg tab^Take by mouth.^Disp: ^Rfl: CRANBERRY^ ^Disp: ^Rfl: collagen, bovine, 100 % powd^Apply to affected area.^Disp: ^Rfl: Insulin Rochelle, Disposable, (EASY TOUCH) 31 gauge x 3/16^Use 1 needle for each dose. 4x daily^Disp: [...] daily at bedtime. (Dr. Genny Munguia refills)) mirabegron (MYRBETRIQ) 50 mg Tb24^Take 1 tablet [...] virtual appointment or schedule an appointment with [facility]. - Follow-up with your PCP in 3-5 days if symptoms have not improved or sooner if symptoms worsen - Discussed red flags and need for immediate medical evaluation if any occur. - Discussed supportive care treatment with fluids, rest and analgesia. - Discussed expected course of illness Kaci Savage APRN.NEMESIO documented in this encounter [facility] 05-15-2022 Miscellaneous Notes PATIENT NOTIFIED OF SAME. [...] Jaqueline Jones RN documented in this encounter [facility] 05-02-2022 History of Presen t illness Narrative SUBJECTIVE: Ana Ivory is a 82 year old female. BP CONTROLLED (<130/80) due on 04/25/2020 LDL CHOLESTEROL due on 11/23/2021 URINE ALBUMIN:CREATININE RATIO due on 11/25/2021 DEPRESSION SCREENING due on 11/29/2021 DIABETIC FOOT EXAM due on 03/01/2022 HPI Ana Ivory presents to follow up BMD results which showed osteoporosis. States prior intolerance of ibandronate, GI upset esophageal burning. She has GERD / Gonzales's esophagus requiring [...] mouth once daily.^Disp: 90 capsule^Rfl: 3 fexofenadine (LYDIA) 180 mg tablet^Take 1 tablet by mouth [...] with dinner. Adjust as directed. (Dr. Genny funes).^Disp: ^Rfl: TOVIAZ 4 mg Tb24 extended release tablet^Take 4 mg by mouth once daily. For 30 days^Disp: ^Rfl: multivitamin-folic acid-biotin (SREN-NJEK-QDNGB, QV-KD-BAOVKM,) 400-2,000 mcg tab^Take by mouth.^Disp: ^Rfl: CRANBERRY^ ^Disp: ^Rfl: collagen, bovine, 100 % powd^Apply to affected area.^Disp: ^Rfl: insulin glargine (LANTUS SOLOSTAR U-100 INSULIN) 100 unit/mL (3 mL)^Inject 18 Units subcutaneously daily at bedtime. (Dr. Genny Munguia refjere)^Disp: ^Rfl: (Patient taking differently: Inject 20 Units subcutaneously daily at bedtime. (Dr. Genny funes)) Insulin Rochelle, Disposable, (EASY TOUCH) 31 gauge x 3/16^Use 1 needle for each dose. 4x daily^Disp: [...] esophagus C. difficile diarrhea 10/18/2011 Cataract 04/17/2013 [facility], Dr. Dada Rodríguez. Mild cataract in L eye- no need for cataract surgery at this time. Continue to follow up the cataract. 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 At this time, we anticipate that [...] care for assistance with chest tube to [facility]. Return to OPD on Sunday11/18/[address] [...] Osteoporosis Less than or equal to -2.5 Steel Fabricating Supervisor: ABHILASH Transcribe Date/Time: Apr 03 2022 12:29P Dictated by : JORDYN WOLF MD This examination was interpreted and the report reviewed and electronically signed by: JORDYN WOLF MD on Apr 03 2022 12:29PM EST Results-Findings * * *Final Report* * * DATE OF EXAM: Apr 03 2022 9:58AM [facility] 0804 - BD DXA - AXIAL SKELETON [...] activity was identified. 05/02/2022 by Clarence Berry APRN.CNS - LORAZEPAM 1 MG TABLET 3. Encounter for immunization - ICD9: V03.89, ICD10: Z23 - INFLUENZA SEASONAL QUADRIVALENT HIGH DOSE AGE 65+ Clarence Berry APRN.CNS Medical Decision Making: Problems: Low: Acute, uncomplicated illness or injury Data: Independent interpretation of test from other physician/QHCP Risk: Moderate: Drug management Medical Decision Making Level: 4 - Moderate documented in this encounter [facility] 05-02-2022 Instructions Clarence Berry APRN.CNS - 05/02/2022 12:25 PM EDT Check with your insurance regarding coverage of prolia or reclast for osteoporosis documented in this encounter [facility] 04-19-2022 Miscellaneous Notes Spoke with pt and information listed below given. Pt verbalizes understanding. Results were given. Pt requested an apt to discuss medication options. Pt requested a copy of report and results be mailed to her. Done. Chelsy Valverde LPN See my result note Pt calling for Bone Density results. Please advise pt. Chelsy Valverde LPN documented in this encounter [facility] 04-03-2022 History of Presen t illness Narrative Radiology Service Progress Note PATIENT NAME: Ana Ivory DATE OF SERVICE: April 03, 2022 TIME: [...] 2022 9:30 AM documented in this encounter [facility] 03-31-2022 Instructions Alicia Blount MD - 03/31/2022 2:54 PM EDT May [...] usual activities immediately. documented in this encounter [facility] 03-31-2022 History of Presen t illness Narrative This note was created using [employer]. Subjective Ana Ivory is a 81 year old female. Patient presents with: Follow Up SUBJECTIVE: Ana Ivory is a 81 year old year old [...] esophagus C. difficile diarrhea 10/18/2011 Cataract 04/17/2013 [facility], Dr. Dada Rodríguez. Mild cataract in L eye- no need for cataract surgery at this time. Continue to follow up the cataract. 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 At this time, we anticipate that [...] 1 capsule by mouth once daily. fexofenadine (LYDIA) 180 mg tablet Take 1 tablet by [...] once daily. For 30 days multivitamin-folic acid-biotin (MFIP-WIYR-BLVLU, JQ-DQ-TRIHRW,) 400-2,000 mcg tab Take by mouth. CRANBERRY collagen, bovine, 100 % powd Apply to affected area. insulin glargine (LANTUS SOLOSTAR U-100 INSULIN) 100 unit/mL (3 mL) Inject 18 Units subcutaneously daily at bedtime. (Dr. Genny Munguia refills) (Patient taking differently: Inject 20 Units subcutaneously daily at bedtime. (Dr. Genny Munguia refills)) sertraline (ZOLOFT) 50 mg tablet Take 1 tablet by mouth once daily. Insulin Rochelle, Disposable, (EASY TOUCH) 31 gauge x 3/16 [...] 1500mcg dose on menu) Miscellaneous Medical Supply mis [employer] (E08.40, Z79.4) Diabetes mellitus due [...] Height as of 12/21/21: 157.5 cm (5' 2). Weight as of this encounter: 70.3 kg [...] current medication. - LIPID PANEL BASIC Alicia Blount MD documented in this encounter [facility] 01-30-2022 Instructions Anu Pablo PA-C - 01/30/2022 [...] or other healthcare professional such as an program trainer may be all that is necessary [...] has gone away. documented in this encounter [facility] 01-30-2022 History of Presen t illness Narrative [...] swelling, but tells me she always has RICK ankle swelling, slightly worse yesterday, improved this morning-elevated last night. Denies numbness/tingling. PAST MEDICAL HISTORY Diagnosis Date Acute gastritis without mention of hemorrhage 10/31/2007 Adverse reaction to non-steroidal anti-inflammatory drug (NSAID) 03/28/2010 KATHERIN positive 03/04/2014 Gonzales's esophagus C. difficile diarrhea 10/18/2011 Cataract 04/17/2013 [facility], Dr. Dada Rodríguez. Mild cataract in L eye- no need for cataract surgery at this time. Continue to follow up the cataract. 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 At this time, we anticipate that [...] care for assistance with chest tube to [facility]. Return to OPD on Sunday11/18/[address] [...] Iodine, Lansoprazole, Macrobid [Nitrofurantoin Monohyd/M-Cryst], Metformin, Neosporin [Pahwhkrp-Befgwnkvdw-Oadkoqxug], Protonix [Pantoprazole], Relafen [Nabumetone], Shrimp, and Actos [...] 1 capsule by mouth once daily. fexofenadine (LYDIA) 180 mg tablet Take 1 tablet by [...] once daily. For 30 days multivitamin-folic acid-biotin (DZFT-NLPH-DLPIU, MZ-AD-GYOTDF,) 400-2,000 mcg tab Take by mouth. CRANBERRY collagen, bovine, 100 % powd Apply to affected area. insulin glargine (LANTUS SOLOSTAR U-100 INSULIN) 100 unit/mL (3 mL) Inject 18 Units subcutaneously daily at bedtime. (Dr. Genny funes) (Patient taking differently: Inject 20 Units subcutaneously daily at bedtime. (Dr. Genny funes) ) sertraline (ZOLOFT) 50 mg tablet Take 1 tablet by mouth once daily. Insulin Rochelle, Disposable, (EASY TOUCH) 31 gauge x 3/16 [...] by mouth twice daily. Miscellaneous Medical Supply [facility] [employer] (E08.40, Z79.4) Diabetes mellitus due [...] nourished. EXTREMITIES No deformities, No skin discoloration, RICK trace ankle edema and Normal pulses bilaterally. Sensation grossly intact distal to injury. Normal ROM ankles RICK. Pain with extension and flexion of the [...] Anu Pablo PA-C documented in this encounter [facility] 01-13-2022 Miscellaneous Notes Pt called and is [...] Coby Reynolds RN documented in this encounter [facility] 01-08-2022 Miscellaneous Notes Okayed Patient has been identified by name and date of : Yes Last office visit in this department: 12-02 RX INSTRUCTIONS: Patient aware RX will be sent to pharmacy. No need to notify patient. Patient phones requesting refills as follows: No medications selected for refill. Please review and advise. Meche James documented in this encounter [facility] 01-02-2022 Miscellaneous Notes Patient has been identified [...] advise. Clara Richmond documented in this encounter [facility] 12-21-2021 Nurse Note 0907 pt to ASCU, up to BR, incontinent of stool. Jennifer care and new brief given. Pt ambulates with assist. updated & @ BS. documented in this encounter [facility] 12-21-2021 History and physical note CHIEF COMPLAINT: Patient presents with: repeat egd: 2 year repeat. Abdominal Pain: upper mid abd past 6 months. Is treating it with Nexium Medication Problem: Nexium is no longer on her formulary This consult was requested by Alicia Blount MD for an opinion regarding Gonzales's esophagus 2-year surveillance EGD. My final recommendations will be communicated to the requesting health care provider by way of the shared medical record for internal providers or letter via the [employer] for external providers. Ana Ivory is a 81 year old female with [...] esophagus C. difficile diarrhea 10/18/2011 Cataract 04/17/2013 [facility], Dr. Dada Rodríguez. Mild cataract in L eye- no need for cataract surgery at this time. Continue to follow up the cataract. 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 At this time, we anticipate that [...] once daily. For 30 days multivitamin-folic acid-biotin (ZYZP-ZVGR-AINUK, DR-XG-NMBFHL,) 400-2,000 mcg tab Take by mouth. collagen, [...] tablet by mouth once daily. CRANBERRY Insulin Rochelle, Disposable, (EASY TOUCH) 31 gauge x 3/16 [...] twice daily. (Dr Don) Miscellaneous Medical Supply [facility] Custom Orth[employer] (E08.40, Z79.4) Diabetes mellitus due [...] & MARITAL STATUS Employer And Job Title: [employer] (Retired) Years Of Education Completed: Not specified Marital Status: to [facility] with 4 children SOCIAL HISTORY Social History [...] with more than 50% of the total gwtn-sn-ygwd time of the visit in counseling / coordination of care. I have confirmed and edited as necessary, the PFSH and ROS obtained by others. June Limon APRN.GREENSKEEPER HEAD UPDATED HISTORY AND PHYSICAL EXAMINATION SERVICE DATE: [...] Erik Underwood III, MD PATIENT NAME: Ana Ivory DATE: December 21, 2021 TIME: 7:10 AM documented in this encounter [facility] 12-13-2021 Miscellaneous Notes Patient was updated, seen [...] Coby Reynolds RN documented in this encounter [facility] 12-01-2021 Miscellaneous Notes PDMP website checked and validated. All prescriptions have been APPROPRIATELY filled. No suspicious activity was identified. 12/01/2021 by Clarence Berry APRN.CNS Last seen pcp 11/22/21. Next 03/31/22. Patient [...] Libertad Burdick Pss documented in this encounter [facility] 11-22-2021 Instructions Alicia Blount MD - 11/22/2021 1:28 PM EDT Probiotics: Align, Culturelle, Florastor documented in this encounter [facility] 11-22-2021 History of Presen t illness Narrative This note was created using [employer]. Subjective Ana Ivory is a 81 year old female. Patient presents with: Follow Up SUBJECTIVE: Ana Ivory is a 81 year old year old [...] Covid Booster #2 Swelling even with stockings. [place] better but still would get tight. No prior water pills. Had episode of leaking when jeans caused thinned area and legs swollen. On SSI now. Reflux noted. Has adjustable bed. PAST MEDICAL HISTORY Diagnosis Date Acute gastritis without mention of hemorrhage 10/31/2007 Adverse reaction to non-steroidal anti-inflammatory drug (NSAID) 03/28/2010 KATHERIN positive 03/04/2014 Gonzales's esophagus C. difficile diarrhea 10/18/2011 Cataract 04/17/2013 [facility], Dr. Dada Rodríguez. Mild cataract in L eye- no need for cataract surgery at this time. Continue to follow up the cataract. 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 At this time, we anticipate that [...] once daily. For 30 days multivitamin-folic acid-biotin (TLOL-VGBC-ZPPFL, EN-IQ-BDUMGX,) 400-2,000 mcg tab Take by mouth. collagen, bovine, 100 % powd Apply to affected area. atorvastatin (LIPITOR) 20 mg tablet Take 1 tablet by mouth once daily. insulin glargine (LANTUS SOLOSTAR U-100 INSULIN) 100 unit/mL (3 mL) Inject 18 Units subcutaneously daily at bedtime. (Dr. Genny Munguia refills) sertraline (ZOLOFT) 50 mg tablet Take 1 tablet by mouth once daily. 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 06-03-2021 History of Presen t illness Narrative Radiology Service Progress Note PATIENT NAME: Ana Ivory DATE OF SERVICE: June 03, 2021 TIME: 12:54 PM PATIENT IDENTITY VERIFICATION COMPLETED USING TWO [...] RELEVANT IMPLANT DATA REVIEWED: Yes RADIOLOGY DEPARTMENT: General X-ray: Exam(s) Completed: Chest X-Ray PERIPHERAL IV DATA: Not applicable SIGNED BY: RT Sandra(R) June 03, 2021 12:54 PM documented in this encounter [facility] 11-14-2014 History of Past i llness Narrative Problem Noted Date Resolved Date Hypoxia 11/14/2014 [...] . DISPOSITION AND FOLLOW-UP 11/11/20142016 Overview: Ana Ivory is and lives in [place]. At this time, we anticipate that [...] care for assistance with chest tube to [facility]. Return to OPD on Sunday11/18/[address] removal . Esophageal reflux 10/08/2014 10/08/2014 Cataract 04/17/2013 09/15/2016 Overview: [facility], Dr. Dada Rodríguez. Mild cataract in L [...] of this encounter (statuses as of 12/01/2021) [facility] History of Past illness Narrative* Problem Noted [...] . DISPOSITION AND FOLLOW-UP 11/11/20142016 Overview: Ana Ivory is and lives in [place]. At this time, we anticipate that [...] reflux 10/08/2014 10/08/2014 Cataract 04/17/2013 09/15/2016 Overview: [facility], Dr. Dada Rodríguez. Mild cataract in L [...] of this encounter (statuses as of 12/13/2021) [facility] History of Past illness Narrative* Problem Noted [...] . DISPOSITION AND FOLLOW-UP 11/11/20142016 Overview: Ana Ivory is and lives in [place]. At this time, we anticipate that [...] care for assistance with chest tube to [facility]. Return to OPD on Sunday11/18/[address] removal . Esophageal reflux 10/08/2014 10/08/2014 Cataract 04/17/2013 09/15/2016 Overview: [facility], Dr. Dada Rodríguez. Mild cataract in L [...] of this encounter (statuses as of 12/22/2021) [facility] History of Past illness Narrative* Problem Noted [...] . DISPOSITION AND FOLLOW-UP 11/11/20142016 Overview: Ana Ivory is and lives in [place]. At this time, we anticipate that [...] care for assistance with chest tube to [facility]. Return to OPD on Sunday11/18/[address] removal . Esophageal reflux 10/08/2014 10/08/2014 Cataract 04/17/2013 09/15/2016 Overview: [facility], Dr. Dada Rodríguez. Mild cataract in L [...] of this encounter (statuses as of 01/02/2022) [facility] History of Past illness Narrative* Problem Noted [...] . DISPOSITION AND FOLLOW-UP 11/11/20142016 Overview: Ana Ivory is and lives in [place]. At this time, we anticipate that [...] care for assistance with chest tube to [facility]. Return to OPD on Sunday11/18/[address] . Esophageal reflux 10/08/2014 10/08/2014 Cataract 04/17/2013 09/15/2016 Overview: [facility], Dr. Dada Rodríguez. Mild cataract in [...] of this encounter (statuses as of 01/08/2022) [facility] History of Past illness Narrative* Problem Noted [...] . DISPOSITION AND FOLLOW-UP 11/11/20142016 Overview: Ana Ivory is and lives in [place]. At this time, we anticipate that [...] reflux 10/08/2014 10/08/2014 Cataract 04/17/2013 09/15/2016 Overview: [facility], Dr. Dada Rodríguez. Mild cataract in L [...] of this encounter (statuses as of 01/13/2022) [facility] History of Past illness Narrative* Problem Noted [...] . DISPOSITION AND FOLLOW-UP 11/11/20142016 Overview: Ana Ivory is and lives in [place]. At this time, we anticipate that [...] care for assistance with chest tube to [facility]. Return to OPD on Sunday11/18/[address] . Esophageal reflux 10/08/2014 10/08/2014 Cataract 04/17/2013 09/15/2016 Overview: [facility], Dr. Dada Rodríguez. Mild cataract in L [...] of this encounter (statuses as of 01/30/2022) [facility] History of Past illness Narrative* Problem Noted [...] . DISPOSITION AND FOLLOW-UP 11/11/20142016 Overview: Ana Ivory is and lives in [place]. At this time, we anticipate that [...] care for assistance with chest tube to [facility]. Return to OPD on Sunday11/18/[address] . Esophageal reflux 10/08/2014 10/08/2014 Cataract 04/17/2013 09/15/2016 Overview: [facility], Dr. Dada Rodríguez. Mild cataract in [...] of this encounter (statuses as of 02/05/2022) [facility] History of Past illness Narrative* Problem Noted [...] . DISPOSITION AND FOLLOW-UP 11/11/20142016 Overview: Ana Ivory is and lives in [place]. At this time, we anticipate that [...] care for assistance with chest tube to [facility]. Return to OPD on Sunday11/18/[address] removal . Esophageal reflux 10/08/2014 10/08/2014 Cataract 04/17/2013 09/15/2016 Overview: [facility], Dr. Dada Rodríguez. Mild cataract in [...] of this encounter (statuses as of 04/04/2022) [facility] History of Past illness Narrative* Problem Noted [...] . DISPOSITION AND FOLLOW-UP 11/11/20142016 Overview: Ana Ivory is and lives in [place]. At this time, we anticipate that [...] reflux 10/08/2014 10/08/2014 Cataract 04/17/2013 09/15/2016 Overview: [facility], Dr. Dada Rodríguez. Mild cataract in L [...] of this encounter (statuses as of 04/19/2022) [facility] History of Past illness Narrative* Problem Noted [...] . DISPOSITION AND FOLLOW-UP 11/11/20142016 Overview: Ana Ivory is and lives in [place]. At this time, we anticipate that [...] reflux 10/08/2014 10/08/2014 Cataract 04/17/2013 09/15/2016 Overview: [facility], Dr. Dada Rodríguez. Mild cataract in L [...] of this encounter (statuses as of 05/02/2022) [facility] History of Past illness Narrative* Problem Noted [...] . DISPOSITION AND FOLLOW-UP 11/11/20142016 Overview: Ana Ivory is and lives in [place]. At this time, we anticipate that [...] [facility] center. Return to [facility]PD on Sunday11/18/[address] removal . Esophageal reflux 10/08/2014 10/08/2014 Cataract 04/17/2013 09/15/2016 Overview: [facility], Dr. Dada Rodríguez. Mild cataract in L [...] of this encounter (statuses as of 05/15/2022) [facility]04-04-2015 History of Past illness Narrative* Problem Noted [...] . DISPOSITION AND FOLLOW-UP 11/11/20142016 Overview: Ana Ivory is and lives in [place], [place]. At this time, we anticipate that [...] reflux 10/08/2014 10/08/2014 Cataract 04/17/2013 09/15/2016 Overview: [facility], Dr. Dada Rodríguez. Mild cataract in L [...] of this encounter (statuses as of 05/16/2022) [facility]04-04-2015 History of Past illness Narrative* Problem Noted [...] . DISPOSITION AND FOLLOW-UP 11/11/20142016 Overview: Ana Ivory is and lives in [place], [place]. At this time, we anticipate that [...] care for assistance with chest tube to [facility]. Return to OPD on Sunday11/18/[address] removal . Esophageal reflux 10/08/2014 10/08/2014 Cataract 04/17/2013 09/15/2016 Overview: [facility], Dr. Dada Rodríguez. Mild cataract in L [...] of this encounter (statuses as of 05/17/2022) [facility]04-04[facility]2015 History of Past illness Narrative* Problem Noted [...] . DISPOSITION AND FOLLOW-UP 11/11/20142016 Overview: Ana Ivory is and lives in [place]. At this time, we anticipate that [...] care for assistance with chest tube to [facility]. Return to OPD on Sunday11/18/[address] removal . Esophageal reflux 10/08/2014 10/08/2014 Cataract 04/17/2013 09/15/2016 Overview: [facility], Dr. Dada Rodríguez. Mild cataract in L [...] of this encounter (statuses as of 05/30/2022) [facility]04-04[facility]2015 History of Past illness Narrative* Problem Noted [...] . DISPOSITION AND FOLLOW-UP 11/11/20142016 Overview: Ana Ivory is and lives in [place]. At this time, we anticipate that [...] care for assistance with chest tube to [facility]. Return to OPD on Sunday11/18/[address] removal . Esophageal reflux 10/08/2014 10/08/2014 Cataract 04/17/2013 09/15/2016 Overview: [facility], Dr. Dada Rodríguez. Mild cataract in L [...] of this encounter (statuses as of 05/31/2022) [facility]04-[facility]2015 History of Past illness Narrative* Problem Noted [...] . DISPOSITION AND FOLLOW-UP 11/11/20142016 Overview: Ana Ivory is and lives in [place]. At this time, we anticipate that [...] reflux 10/08/2014 10/08/2014 Cataract 04/17/2013 09/15/2016 Overview: [facility], Dr. Dada Rodríguez. Mild cataract in L [...] of this encounter (statuses as of 06/16/2022) [facility]04-04[facility]2015 History of Past illness Narrative* Problem Noted [...] . DISPOSITION AND FOLLOW-UP 11/11/20142016 Overview: Ana Ivory is and lives in [place]. At this time, we anticipate that [...] care for assistance with chest tube to [facility]. Return to OPD on Sunday11/18/[address] . Esophageal reflux 10/08/2014 10/08/2014 Cataract 04/17/2013 09/15/2016 Overview: [facility], Dr. Dada Rodríguez. Mild cataract in L [...] of this encounter (statuses as of 06/16/2022) [facility]04-04[facility]2015 History of Past illness Narrative* Problem Noted [...] . DISPOSITION AND FOLLOW-UP 11/11/20142016 Overview: Ana Ivory is and lives in [place]. At this time, we anticipate that [...] reflux 10/08/2014 10/08/2014 Cataract 04/17/2013 09/15/2016 Overview: [facility], Dr. Dada Rodríguez. Mild cataract in L [...] of this encounter (statuses as of 06/28/2022) [facility]04-04[facility]2015 History of Past illness Narrative* Problem Noted [...] . DISPOSITION AND FOLLOW-UP 11/11/20142016 Overview: Ana Ivory is and lives in [place]. At this time, we anticipate that [...] care for assistance with chest tube to [facility]. Return to OPD on Sunday11/18/[address] . Esophageal reflux 10/08/2014 10/08/2014 Cataract 04/17/2013 09/15/2016 Overview: [facility], Dr. Dada Rodríguez. Mild cataract in [...] of this encounter (statuses as of 08/02/2022) [facility]04-[facility]2015 History of Past illness Narrative* Problem Noted [...] . DISPOSITION AND FOLLOW-UP 11/11/20142016 Overview: Ana Ivory is and lives in [place]. At this time, we anticipate that [...] care for assistance with chest tube to [facility]. Return to OPD on Sunday11/18/[address] . Esophageal reflux 10/08/2014 10/08/2014 Cataract 04/17/2013 09/15/2016 Overview: [facility], Dr. Dada Rodríguez. Mild cataract in L [...] of this encounter (statuses as of 08/23/2022) [facility]04-04[facility]2015 History of Past illness Narrative* Problem Noted [...] . DISPOSITION AND FOLLOW-UP 11/11/20142016 Overview: Ana Ivory is and lives in [place]. At this time, we anticipate that [...] care for assistance with chest tube to [facility]. Return to OPD on Sunday11/18/[address] . Esophageal reflux 10/08/2014 10/08/2014 Cataract 04/17/2013 09/15/2016 Overview: [facility], Dr. Dada Rodríguez. Mild cataract in L [...] of this encounter (statuses as of 09/30/2022) [facility]04[facility] History of Past illness Narrative* Problem Noted [...] . DISPOSITION AND FOLLOW-UP 11/11/20142016 Overview: Ana Ivory is and lives in [place]. At this time, we anticipate that [...] care for assistance with chest tube to [facility]. Return to OPD on Sunday11/18/[address] . Esophageal reflux 10/08/2014 10/08/2014 Cataract 04/17/2013 09/15/2016 Overview: [facility], Dr. Dada Rodríguez. Mild cataract in L [...] of this encounter (statuses as of 10/10/2022) [facility]04-[facility]2015 History of Past illness Narrative* Problem Noted [...] . DISPOSITION AND FOLLOW-UP 11/11/20142016 Overview: Ana Ivory is and lives in [place]. At this time, we anticipate that [...] care for assistance with chest tube to [facility]. Return to OPD on Sunday11/18/[address] . Esophageal reflux 10/08/2014 10/08/2014 Cataract 04/17/2013 09/15/2016 Overview: [facility], Dr. Dada Rodríguez. Mild cataract in L [...] of this encounter (statuses as of 10/12/2022) [facility]04-[facility] History of Past illness Narrative* Problem Noted [...] . DISPOSITION AND FOLLOW-UP 11/11/20142016 Overview: Ana Ivory is and lives in [place]. At this time, we anticipate that [...] reflux 10/08/2014 10/08/2014 Cataract 04/17/2013 09/15/2016 Overview: [facility], Dr. Dada Rodríguez. Mild cataract in [...] of this encounter (statuses as of 10/18/2022) [facility]04-04-2015 History of Past illness Narrative* Problem Noted [...] . DISPOSITION AND FOLLOW-UP 11/11/20142016 Overview: Ana Ivory is and lives in [place]. At this time, we anticipate that [...] reflux 10/08/2014 10/08/2014 Cataract 04/17/2013 09/15/2016 Overview: [facility], Dr. Dada Rodríguez. Mild cataract in L [...] of this encounter (statuses as of 01/25/2023) [facility]04-04-2015 History of Past illness Narrative* Problem Noted [...] . DISPOSITION AND FOLLOW-UP 11/11/20142016 Overview: Ana Ivory is and lives in [place]. At this time, we anticipate that [...] care for assistance with chest tube to [facility]. Return to OPD on Sunday11/18/[address] . Esophageal reflux 10/08/2014 10/08/2014 Cataract 04/17/2013 09/15/2016 Overview: [facility], Dr. Dada Rodríguez. Mild cataract in L [...] of this encounter (statuses as of 02/08/2023) [facility]04-[facility]2015 History of Past illness Narrative* Problem Noted [...] . DISPOSITION AND FOLLOW-UP 11/11/20142016 Overview: Ana Ivory is and lives in [place]. At this time, we anticipate that [...] reflux 10/08/2014 10/08/2014 Cataract 04/17/2013 09/15/2016 Overview: [facility], Dr. Dada Rodríguez. Mild cataract in L [...] of this encounter (statuses as of 02/12/2023) [facility]04-[facility]2015 History of Past illness Narrative* Problem Noted [...] . DISPOSITION AND FOLLOW-UP 11/11/2014 Overview: Ana Ivory is and lives in [place]. At this time, we anticipate that [...] reflux 10/08/2014 10/08/2014 Cataract 04/17/2013 09/15/2016 Overview: [facility], Dr. Dada Rodríguez. Mild cataract in L [...] of this encounter (statuses as of 04/06/2023) [facility]04-04-2015 History of Past illness Narrative* Problem Noted [...] . DISPOSITION AND FOLLOW-UP 11/11/2014 Overview: Ana Ivory is and lives in [place]. At this time, we anticipate that [...] care for assistance with chest tube to [facility]. Return to OPD on Sunday11/18/[address] . Esophageal reflux 10/08/2014 10/08/2014 Cataract 04/17/2013 09/15/2016 Overview: [facility], Dr. Dada Rodríguez. Mild cataract in L [...] of this encounter (statuses as of 04/08/2023) [facility]04-[facility] History of Past illness Narrative* Problem Noted [...] . DISPOSITION AND FOLLOW-UP 11/11/2014 Overview: Ana Ivory is and lives in [place]. At this time, we anticipate that [...] care for assistance with chest tube to [facility]. Return to OPD on Sunday11/18/[address] . Esophageal reflux 10/08/2014 10/08/2014 Cataract 04/17/2013 09/15/2016 Overview: [facility], Dr. Dada Rodríguez. Mild cataract in L [...] of this encounter (statuses as of 06/01/2023) [facility]04-04[facility]2015 History of Past illness Narrative* Problem Noted [...] . DISPOSITION AND FOLLOW-UP 11/11/2014 Overview: Ana Ivory is and lives in [place]. At this time, we anticipate that [...] reflux 10/08/2014 10/08/2014 Cataract 04/17/2013 09/15/2016 Overview: [facility], Dr. Dada Rodríguez. Mild cataract in L [...] of this encounter (statuses as of 06/05/2023) [facility]04-04-2015 History of Past illness Narrative* Problem Noted [...] . DISPOSITION AND FOLLOW-UP 11/11/2014 Overview: Ana Ivory is and lives in [place]. At this time, we anticipate that [...] care for assistance with chest tube to [facility]. Return to OPD on Sunday11/18/[address] . Esophageal reflux 10/08/2014 10/08/2014 Cataract 04/17/2013 09/15/2016 Overview: [facility], Dr. Dada Rodríguez. Mild cataract in L [...] of this encounter (statuses as of 06/06/2023) [facility]04-04[facility]2015 History of Past illness Narrative* Problem Noted [...] . DISPOSITION AND FOLLOW-UP 11/11/2014 Overview: Ana Ivory is and lives in [place]. At this time, we anticipate that [...] care for assistance with chest tube to [facility]. Return to OPD on Sunday11/18/[address] . Esophageal reflux 10/08/2014 10/08/2014 Cataract 04/17/2013 09/15/2016 Overview: [facility], Dr. Dada Rodríguez. Mild cataract in [...] of this encounter (statuses as of 06/07/2023) [facility]04-[facility] History of Past illness Narrative* Problem Noted [...] . DISPOSITION AND FOLLOW-UP 11/11/2014 Overview: Ana Ivory is and lives in [place]. At this time, we anticipate that [...] care for assistance with chest tube to [facility]. Return to OPD on Sunday11/18/[address] . Esophageal reflux 10/08/2014 10/08/2014 Cataract 04/17/2013 09/15/2016 Overview: [facility], Dr. Dada Rodríguez. Mild cataract in [...] of this encounter (statuses as of 06/17/2023) [facility]04-04[facility] History of Past illness Narrative* Problem Noted [...] . DISPOSITION AND FOLLOW-UP 11/11/2014 Overview: Ana Ivory is and lives in [place]. At this time, we anticipate that [...] care for assistance with chest tube to [facility]. Return to OPD on Sunday11/18/[address] . Esophageal reflux 10/08/2014 10/08/2014 Cataract 04/17/2013 09/15/2016 Overview: [facility], Dr. Dada Rodríguez. Mild cataract in L [...] of this encounter (statuses as of 06/29/2023) [facility]04-[facility] History of Past illness Narrative* Problem Noted [...] . DISPOSITION AND FOLLOW-UP 11/11/2014 Overview: Ana Ivory is and lives in [place]. At this time, we anticipate that [...] care for assistance with chest tube to [facility]. Return to OPD on Sunday11/18/[address] . Esophageal reflux 10/08/2014 10/08/2014 Cataract 04/17/2013 09/15/2016 Overview: [facility], Dr. Dada Rodríguez. Mild cataract in L [...] of this encounter (statuses as of 07/03/2023) [facility]04-[facility] History of Past illness Narrative* Problem Noted [...] . DISPOSITION AND FOLLOW-UP 11/11/2014 Overview: Ana Ivory is and lives in [place]. At this time, we anticipate that [...] care for assistance with chest tube to [facility]. Return to OPD on Sunday11/18/[address] . Esophageal reflux 10/08/2014 10/08/2014 Cataract 04/17/2013 09/15/2016 Overview: [facility], Dr. Dada Rodríguez. Mild cataract in L [...] of this encounter (statuses as of 07/21/2023) [facility]04-[facility] History of Past illness Narrative* Problem Noted [...] . DISPOSITION AND FOLLOW-UP 11/11/2014 Overview: Ana Ivory is and lives in [place]. At this time, we anticipate that [...] reflux 10/08/2014 10/08/2014 Cataract 04/17/2013 09/15/2016 Overview: [facility], Dr. Dada Rodríguez. Mild cataract in L [...] as of this encounter (statuses as of 09/28/2023) [facility]04[facility] History of Past illness Narrative* Problem Noted [...] . DISPOSITION AND FOLLOW-UP 11/11/2014 Overview: Ana Ivory is and lives in [place]. At this time, we anticipate that [...] care for assistance with chest tube to [facility]. Return to OPD on Sunday11/18/[address] . Esophageal reflux 10/08/2014 10/08/2014 Cataract 04/17/2013 09/15/2016 Overview: [facility], Dr. Dada Rodríguez. Mild cataract in L [...] as of this encounter (statuses as of 11/05/2023) [facility] Anxiety Anxiety state, unspecified documented [facility] Diagnosis Chronic gastritis without bleeding, unspecified gastritis type Esophagitis Esophagitis, unspecified [facility], initial encounter- [facility] Diagnosis Urinary tract infection without hematuria, [...] whether esophagitis present documented in this encounter [facility] note* Diagnosis Asymptomatic postmenopausal status documented in this encounter [facility] note* Diagnosis Osteoporosis, unspecified osteoporosis type, unspecified pathological fracture presence- Primary Anxiety Anxiety state, unspecified Encounter for immunization Need for other specified prophylactic vaccination against single bacterial disease documented in this encounter [facility] note* Diagnosis Suspected COVID-19 virus infection- Primary documented in this encounter [facility] note* Diagnosis Vitamin D deficiency- Primary Unspecified vitamin D deficiency Chronic cough Cough Vitamin B6 deficiency Essential hypertension Unspecified essential hypertension 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, with long-term current use of insulin ([facility]) Hyperlipidemia, unspecified hyperlipidemia type Left lateral epicondylitis Lateral epicondylitis of elbow Radial styloid tenosynovitis of left hand Radial styloid tenosynovitis Asymptomatic postmenopausal status documented in this encounter [facility] note* Diagnosis Essential hypertension Unspecified essential hypertension documented in this encounter [facility] note* Diagnosis 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, with long-term current use of insulin (HCC) documented in this encounter [facility] note* Diagnosis Essential hypertension- Primary Unspecified essential hypertension 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, with long-term current use of insulin (HCC) Vitamin D deficiency Unspecified vitamin D deficiency Osteoporosis, unspecified Primary hypertension Unspecified essential hypertension [facility] Diagnosis Onset Date Resolution Status 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 disease acut e Bronchiectasis chronic S/P lobectomy of lung resolv ed History of ischemic stroke a cute Overweight (BMI 25.0-29.9) a cute Diabetes 1.5, managed as type 1 chronic Essential (primary) hypertension chronic Polyneuropathy chronic Dyspnea acute Bronchiectasis [facility] Work Phone: Evaluation note* Diagnosis Onset Date Resolution Status History of ischemic stroke a cute Overweight (BMI 25.0-29.9) a cute Diabetes 1.5, managed as type 1 chronic Essential (primary) hypertension chronic Polyneuropathy chronic Dyspnea acute Bronchiectasis [facility] Work Phone: Evaluation note* Diagnosis 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, with long-term current use of insulin (HCC)- Primary Contusion of right foot, initial encounter Contusion of caodaism region, initial encounter Injury of coccyx, initial encounter Facial pain Headache Jaw pain Anxiety Anxiety state, unspecified Vitamin D deficiency Unspecified vitamin D deficiency [facility] Intractable acute post-traumatic headache- Primary Acute post-traumatic headache Contusion of right foot, initial encounter Contusion of caodaism region, initial encounter Injury of coccyx, initial encounter Facial pain Headache Jaw pain Injury of head, subsequent encounter [facility] Diagnosis Intractable acute post-traumatic headache- Primary Acute post-traumatic headache Contusion of right foot, initial encounter Contusion of caodaism region, initial encounter Injury of coccyx, initial encounter Facial pain Headache Jaw pain [facility] Diagnosis 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, with long-term current use of insulin (HCC)- Primary Hyperlipidemia, unspecified hyperlipidemia type Vitamin D deficiency Unspecified vitamin D deficiency [facility] Diagnosis Anxiety Anxiety state, unspecified [facility] Diagnosis Viral URI- Primary Acute upper respiratory infections of unspecified site Right ear pain Otalgia, unspecified [facility] Diagnosis Bronchiectasis without complication (HCC)- Primary Bronchiectasis without acute exacerbation Carcinoid bronchial adenoma, 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HCC) Encounter for immunization Need for other specified prophylactic vaccination against single bacterial disease 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 Gonzales's esophagus [facility] Diagnosis Onset Date Resolution Status Diabetes 1.5, managed as type 1 chronic Essential (primary) hypertension chronic Overweight (BMI 25.0-29.9) c hronic Polyneuropathy chronic Bronchiectasis chronic Fatigue noneactive 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 disease [employer] Polyneuropathy chronic History of ischemic stroke r esolved Sepsis acute UTI (urinary tract infection) acute Diabetes 1.5, managed as type 1 chronic [facility] Work Phone: Evaluation note* Diagnosis Injury of head, subsequent encounter [facility] Diagnosis Onset Date Resolution Status Diabetes 1.5, managed as type 1 chronic Essential (primary) hypertension chronic Overweight (BMI 25.0-29.9) c hronic Polyneuropathy chronic Bronchiectasis chronic Fatigue noneactive 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 disease [employer] Polyneuropathy chronic History of ischemic stroke r esolved Diabetes 1.5, managed as type 1 chronic Sepsis resolved UTI (urinary tract infection) resolved Debility acute Dehydration acute Depression acute GERD (gastroesophageal reflux disease) acute History of lung cancer acute History of stroke acute Hyperlipidemia acute Recurrent UTI acute Type 2 diabetes mellitus with hyperglycemia acute Anxiety chronic Hypertension chronic Sepsis resolved UTI (urinary tract infection) resolved [facility] Work Phone: Evaluation note* Diagnosis Debility- Primary Debility, unspecified Diabetes 1.5, managed as type 1 (HCC) Type II or unspecified type diabetes mellitus without mention of complication, not stated as uncontrolled Sepsis, due to unspecified organism, unspecified whether acute organ dysfunction present ([facility]) Pain in left ta [facility] Diagnosis Anxiety Anxiety state, unspecified [facility] Diagnosis Onset Date Resolution Status Fatigue noneactive 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 disease [employer] Polyneuropathy chronic History of ischemic stroke r esolved Diabetes 1.5, managed as type 1 chronic Sepsis resolved UTI (urinary tract infection) resolved Debility acute Depression acute GERD (gastroesophageal reflux disease) acute History of lung cancer acute History of stroke acute Hyperlipidemia acute Type 2 diabetes mellitus with hyperglycemia acute Anxiety chronic Hypertension chronic Dehydration resolved Recurrent UTI resolved Sepsis resolved UTI (urinary tract infection) resolved Left lumbar radiculopathy ac jonathon Diabetes 1.5, managed as type 1 chronic Essential (primary) hypertension chronic Polyneuropathy chronic [facility] Work Phone: Evaluation note* Diagnosis 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, with long-term current use of insulin (HCC)- Primary Essential hypertension Unspecified essential hypertension Encounter for long-term current use of medication Vitamin D deficiency Unspecified vitamin D deficiency Hyperlipidemia, unspecified hyperlipidemia type [facility] Diagnosis 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 Diagnosis Urinary frequency- Primary [facility] Diagnosis Anxiety Anxiety state, unspecified [facility] Diagnosis Sinobronchitis- Primary Unspecified sinusitis (chronic) Acute cough [facility] Diagnosis SOB (shortness of breath)- Primary Shortness of breath [facility] Diagnosis Diabetes 1.5, managed as type 1 (HCC)- Primary Type II or unspecified type diabetes mellitus without mention of complication, not stated as uncontrolled Screening for diabetic retinopathy Screening for other eye conditions Chest pain, unspecified type Lightheadedness Dizziness and giddiness Syncope, unspecified syncope type documented 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, with long-term current use of insulin (HCC)- Primary Anxiety Anxiety state, unspecified LUMBAR DISC DISPLACEMENT Displacement of lumbar intervertebral disc without myelopathy Chest wall pain following surgery Acute post-thoracotomy pain Encounter for screening mammogram for malignant neoplasm of breast Other screening mammogram Essential hypertension Unspecified essential hypertension Recurrent bronchospasm Other diseases of trachea and bronchus Suspected 2019 novel coronavirus infection documented in this encounter [facility] note* Diagnosis 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, with long-term current use of insulin (HCC)- Primary Anxiety Anxiety state, unspecified LUMBAR DISC DISPLACEMENT Displacement of lumbar intervertebral disc without myelopathy Chest wall pain following surgery Acute post-thoracotomy pain Encounter for screening mammogram for malignant neoplasm of breast Other screening mammogram Essential hypertension Unspecified essential hypertension Recurrent bronchospasm Other diseases of trachea and bronchus Anxiety- Primary Anxiety state, unspecified Essential hypertension Unspecified essential hypertension Diabetes 1.5, managed as type 1 (HCC) Type II or unspecified type diabetes mellitus without mention of complication, not stated as uncontrolled Stress incontinence Female stress incontinence Viral syndrome Unspecified viral infection, in conditions classified elsewhere and of unspecified site Right leg swelling Swelling of limb [facility] Diagnosis 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, with long-term current use of insulin (HCC)- Primary Anxiety Anxiety state, unspecified LUMBAR DISC DISPLACEMENT Displacement of lumbar intervertebral disc without myelopathy Chest wall pain following surgery Acute post-thoracotomy pain Encounter for screening mammogram for malignant neoplasm of breast Other screening mammogram Essential hypertension Unspecified essential hypertension Recurrent bronchospasm Other diseases of trachea and bronchus Syncope, unspecified syncope type- Primary Diabetes 1.5, managed as type 1 (HCC) Type II or unspecified type diabetes mellitus without mention of complication, not stated as uncontrolled Recurrent bronchospasm Other diseases of trachea and bronchus Bronchiectasis without complication (HCC) Bronchiectasis without acute exacerbation Chronic cough Cough documented in this encounter [facility] note* Diagnosis 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, with long-term current use of insulin (HCC)- Primary Anxiety Anxiety state, unspecified LUMBAR DISC DISPLACEMENT Displacement of lumbar intervertebral disc without myelopathy Chest wall pain following surgery Acute post-thoracotomy pain Encounter for screening mammogram for malignant neoplasm of breast Other screening mammogram Essential hypertension Unspecified essential hypertension Recurrent bronchospasm Other diseases of trachea and bronchus Hemiplegia and hemiparesis following cerebral infarction affecting right dominant side (HCC)- Primary documented in this encounter [facility] for referral (narrative)* Diagnostic Procedure Only (Urgent) - Closed Specialty Diagnoses / Procedures Referred By Maddison peters Referred To Contact XR IMAGING Diagnoses Ankle injury, initial encounter Procedures XR ANKLE GENERAL 3V AP/LAT/OBL RIGHT RADEX ANKLE COMPLETE MINIMUM 3 VIEWS Anu Pablo PA-C [address] [place] [address] Xr Imaging Referral ID Status Reason Start Date Expiration Date V isits Requested Visits Authorized [id number] Closed Auto-Generate d Referral 01/30/2022 03/01/2023 1 1 [facility] for referral (narrative)* Outpatient Procedure (Routine) - Authorized Specialty Diagnoses / Procedures Referred By Maddison peters Referred To Contact [facility] 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 Procedures EGD DIAGNOSTIC ESOPHAGOGASTRODUODENOSC OPY TRANSORAL DIAGNOSTIC Radha Balderrama MD [address] [place] [address] [facility] [place] [address] [place] [address] Referral ID Status Reason Start Date Expiration Date Visits Requested Visits Authorized [id number] Authorized Auto-Generat ed Referral 3 06/04/2024 1 1 [facility] for referral (narrative)* Outpatient Procedure (Routine) - Closed Specialty Diagnoses / Procedures [facility]erred To Contact [facility] 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 Procedures EGD DIAGNOSTIC ESOPHAGOGASTRODUODENOSC OPY TRANSORAL DIAGNOSTIC Radha Balderrama MD [address] [place] [address] [facility] [address] [place] [address] Referral ID Status Reason Start Date Expiration Date V isits Requested Visits Authorized [id number] Closed Auto-Generate d Referral 06/04/2023 06/04/2024 1 1 [facility] for referral (narrative)* Outpatient Procedure (Routine) - Authorized Specialty Diagnoses / Procedures Referred By Contac t Referred To Contact [facility] Diagnoses Lightheadedness Syncope, unspecified syncope type Procedures US CAROTID ARTERIES [facility] DUPLEX SCAN EXTRACRANIAL ART COMPL BI STUDY Clarence Berry APRN.SENIOR PATIENT ACCOUNT REPRESENTATIVE [address] [place] [address] [facility] [address] [address] Referral ID Status Reason Start Date Expiration Date Visits Requested Visits Authorized [id number] Authorized Auto-Generat ed Referral 01/31/2024 01/30/2025 1 1 * Diagnostic Procedure Only (Routine) - Authorized Specialty Diagnoses / Procedures Referred By Contac t Referred To Contact US IMAGING Diagnoses Lightheadedness Syncope, unspecified syncope type Procedures US CAROTID BILATERAL Clarence Berry APRN.SENIOR PATIENT ACCOUNT REPRESENTATIVE [address] [place] [address] [place] [address] Referral ID Status Reason Start Date Expiration Date Visits Requested Visits Authorized [id number] Authorized Auto-Generat ed Referral 01/31/2024 03/01/2025 1 1 * Outpatient Procedure (Routine) - Pending Review Specialty Diagnoses / Procedures Referred By Contac t Referred To Contact [facility] Diagnoses Chest pain, unspecified type Procedures ECG COMPLETE ECG ROUTINE ECG W/LEAST 12 LDS W/I&R Clarence Berry APRN.SENIOR PATIENT ACCOUNT REPRESENTATIVE [address] [place] [address] [facility] [place] [address] [place] [address] Referral ID Status Reason Start Date Expiration Date Visits Requested Visits Authorized [id number] Pending Review Auto-Generat ed Referral 01/31/2024 01/30/2025 1 1 * Consult, Test, Treat (Routine) - Authorized Specialty Diagnoses / Procedures Referred By Contac t Referred To Contact Cardiology Diagnoses Chest pain, unspecified type Procedures CONSULT TO CARDIOLOGY OFFICE/OUTPATIENT [facility] 60 MINUTES Clarence Berry APRN.SENIOR PATIENT ACCOUNT REPRESENTATIVE [address] [place] [address] Referral ID Status Reason Start Date Expiration Date Visits Requested Visits Authorized [id number] Authorized PCP Requested Referral 01/31/2024 01/30/2025 1 1 * Outpatient Procedure (Routine) - Authorized Specialty Diagnoses / Procedures Referred By Contac t Referred To [facility] Diagnoses Chest pain, unspecified type Procedures STRESS ECHO TREADMILL ECHO TTHRC R-T 2D W/WO M-MODE COMPLETE REST&ST Clarence Berry APRN.SENIOR PATIENT ACCOUNT REPRESENTATIVE [address] [place] [address] [facility] [place] [address] [place] [address] Referral ID Status Reason Start Date Expiration Date Visits Requested Visits Authorized [id number] Authorized Auto-Generat ed Referral 01/31/2024 01/30/2025 1 1 * Consult, Test, Treat (Routine) - Authorized Specialty Diagnoses / Procedures Referred By Contac t Referred To Contact Ophthalmology Diagnoses Diabetes 1.5, managed as type 1 (HCC) Screening for diabetic retinopathy Procedures CONSULT TO OPHTHALMOLOGY OFFICE/OUTPATIENT [facility] 60 MINUTES Clarence Berry APRN.SENIOR PATIENT ACCOUNT REPRESENTATIVE [address] [place] [address] Referral ID Status Reason Start Date Expiration Date Visits Requested Visits Authorized [id number] Authorized PCP Requested Referral 01/31/2024 01/30/2025 1 1 [facility] for referral (narrative)* Diagnostic Procedure Only (Routine) - Closed Specialty Diagnoses / Procedures Referred By Contac t Referred To Contact XR IMAGING Diagnoses Foot pain, right Procedures XR FOOT GENERAL 3V AP/LAT/OBL RIGHT RADEX FOOT COMPLETE MINIMUM 3 VIEWS Crispin Cheng MD [address] [place] [address] [place] [address] Referral ID Status Reason Start Date Expiration Date V isits Requested Visits Authorized [id number] Closed Auto-Generate d Referral 12/30/2022 01/29/2024 1 1 [facility] for referral (narrative)* Diagnostic Procedure Only (Urgent) - Closed Specialty Diagnoses / Procedures Referred By Contac t Referred To Contact XR IMAGING Diagnoses Ankle injury, initial encounter Procedures XR ANKLE GENERAL 3V AP/LAT/OBL RIGHT RADEX ANKLE COMPLETE MINIMUM 3 VIEWS Anu Pablo PA-C [address] [place] [address] [place] [address] Referral ID Status Reason Start Date Expiration Date V isits Requested Visits Authorized [id number] Closed Auto-Generate d Referral 01/30/2022 03/01/2023 1 1 [facility] for visit Narrative* Auth/Cert Specialty Diagnoses / Procedures Referred By Contac t Referred To Contact Diagnoses History of Gonzales's esophagus [Z87.19 Procedures ESOPHAGOGASTRODUODENOSCOPY TRANSORAL DIAGNOSTIC EGD DIAGNOSTIC [GI9 [facility] [address] [place] [address] Referral ID Status Reason Start Date Expiration Date Visits Re quested Visits Authorized [id number] 1 1 [facility] for visit Narrative* Outpatient Procedure (Routine) - Closed Specialty Diagnoses / Procedures Referred By Contac t Referred To Contact [facility] 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 Procedures EGD DIAGNOSTIC ESOPHAGOGASTRODUODENOSC OPY TRANSORAL DIAGNOSTIC Radha Balderrama MD [address] [place] [address] [facility] [address] [place] [address] Referral ID Status Reason Start Date Expiration Date V isits Requested Visits Authorized [id number] Closed Auto-Generate d Referral 06/04/2023 06/04/2024 1 1 [facility] for visit Narrative* Diagnostic Procedure Only (Routine) - Closed Specialty Diagnoses / Procedures Referred By Contac t Referred To Contact XR IMAGING Diagnoses Foot pain, right Procedures XR FOOT GENERAL 3V AP/LAT/OBL RIGHT RADEX FOOT COMPLETE MINIMUM 3 VIEWS Crispin Cheng MD [address] [place] [address] [place] [address] Referral ID Status Reason Start Date Expiration Date V isits Requested Visits Authorized [id number] Closed Auto-Generate d Referral 12/30/2022 01/29/2024 1 1 [facility] for visit Narrative* Diagnostic Procedure Only (Urgent) - Closed Specialty Diagnoses / Procedures Referred By Contac t Referred To Contact XR IMAGING Diagnoses Ankle injury, initial encounter Procedures XR ANKLE GENERAL 3V AP/LAT/OBL RIGHT RADEX ANKLE COMPLETE MINIMUM 3 VIEWS Anu Pablo PA-C [address] [place] [address] [place] [address] Referral ID Status Reason Start Date Expiration Date V isits Requested Visits Authorized [id number] Closed Auto-Generate d Referral 01/30/2022 03/01/2023 [address] [facility] Advance Directives No Advanced Directives Records FoundDocuments on File Type Date Recorded Patient Satellite Installation Technician Expl anation Advance Directive(s) 11/10/2021 3:53 PM [...] Documents on File Type Date Recorded Patient Satellite Installation Technician Expl anation Advance Directive(s) 12/21/2021 1:29 PM [...] Documents on File Type Date Recorded Patient Satellite Installation Technician Expl anation Advance Directive(s) 12/21/2021 1:29 PM [...] Documents on File Type Date Recorded Patient Satellite Installation Technician Expl anation Advance Directive(s) 09/25/2008 8:05 PM Advance Directive(s) 05/05/2008 Advance Directive(s) 09/27/2006 Advance Directive Response Recorded Date/ Time Living Will Yes December 29, 2020 1 0:06am Power of Geospatial Analyst Yes December 29, 2020 10:06am Documents on File Type Date Recorded Patient Satellite Installation Technician Expl anation Advance Directive(s) 09/25/2008 8:05 PM Advance Directive(s) 05/05/2008 Advance Directive(s) 09/27/2006 Advance Directive Response Recorded Date/ Time Name of Medical Power of Geospatial Analyst lilly Turcios n in law June 10, 2023 6:29pm Living Will Yes June 10 6:29pm Power of Geospatial Analyst Yes June 10, 2023 6:29pm Advance Directive Response Recorded Date/ Time Name of Medical Power of Geospatial Analyst lilly Turcios n in law June 10, 2023 8:53pm Name of Medical Power of Geospatial Analyst Ayaz Ivory, June 15, 2023 3:30pm Living Will Yes June 15 3:30pm Power of Geospatial Analyst Yes June 15, 2023 3:30pm Medications Administered Section Inactive Administered Medications - up to 3 most recent administrations Medication Order MAR Action Action Date Dose Rate Site benzocaine 20% 1 [place] (TOPEX) 1 [place], TOPICAL, DIRECTED, Starting on Sun12/21/21 at 0830, Until Sun12/21/21 at 1229, DOSING DIRECTED BY PHYSICIAN FOR PROCEDURAL SEDATION ONLY - Pharmaceutical Waste: Aerosol -, Intraprocedure Given 12/21/2021 8:07 AM EDT 1 [facility] Concerns Infection Onset Date Last Indicated Resolved Time COVID-19 Rule-Out 05/16/2022 05/16/2022 Chief Complaint and Reason for Visit Chief Complaint 6 M FU 6 M FU 3 M FU DYSPNEA DYSPNEA DYSPNEA DYSPNEA DYSPNEA Reason for Visit 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 dise ase Bronchiectasis S/P lobectomy of lung History of ischemic stroke Overweight (BMI 25.0-29.9) Diabetes 1.5, managed as type 1 Essential (primary) hypertension Polyneuropathy Dyspnea Bronchiectasis Chief Complaint 6 M FU 3 M FU DYSPNEA DYSPNEA DYSPNEA DYSPNEA DYSPNEA Reason for Visit History of ischemic stroke Overweight (BMI 25.0-29.9) Diabetes 1.5, managed as type 1 Essential (primary) hypertension Polyneuropathy Dyspnea Bronchiectasis Chief Complaint 4 M FU 6 M FU 4 M FU SEPSIS SECONDARY TO UTI Reason for Visit Diabetes 1.5, manage d as type 1 Essential (primary) hypertension Overweight (BMI 25.0-29.9) Polyneuropathy Bronchiectasis Fatigue 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 disease Polyneuropathy History of ischemic stroke Sepsis UTI (urinary tract infection) Diabetes 1.5, managed as type 1 Chief Complaint 4 M FU 6 M FU 4 M FU SEPSIS SECONDARY TO UTI SEPSIS SECONDARY TO UTI SEPSIS SECONDARY TO UTI SEPSIS SECONDARY TO UTI SEPSIS SECONDARY TO UTI LOWER EXTREMITY CVA Reason for Visit Diabetes 1.5, manage d as type 1 Essential (primary) hypertension Overweight (BMI 25.0-29.9) Polyneuropathy Bronchiectasis Fatigue 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 disease Polyneuropathy History of ischemic stroke Diabetes 1.5, managed as type 1 Sepsis UTI (urinary tract infection) Debility Dehydration Depression GERD (gastroesophageal reflux disease) History of lung cancer History of stroke Hyperlipidemia Recurrent UTI Type 2 diabetes mellitus with hyperglycemia Anxiety Hypertension Sepsis UTI (urinary tract infection) Chief Complaint 4 M FU SEPSIS SECONDARY TO UTI SEPSIS SECONDARY TO UTI SEPSIS SECONDARY TO UTI SEPSIS SECONDARY TO UTI SEPSIS SECONDARY TO UTI LOWER EXTREMITY CVA B12 inject LEFT LEG RM 2 4 M FU Spinal stenosis, cervical region Reason for Visit Fatigue 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 disease Polyneuropathy History of ischemic stroke Diabetes 1.5, managed as type 1 Sepsis UTI (urinary tract infection) Debility Depression GERD (gastroesophageal reflux disease) History of lung cancer History of stroke Hyperlipidemia Type 2 diabetes mellitus with hyperglycemia Anxiety Hypertension Dehydration Recurrent UTI Sepsis UTI (urinary tract infection) Left lumbar radiculopathy Diabetes 1.5, managed as type 1 Essential (primary) hypertension Polyneuropathy Family History No Family History Records Found Relationship Condition Age at Onset Recorded Date/T dinorah father Malignant neoplasm of lung Unknown Malignant neoplasm of colon Unknown mother Mesothelioma Unknown Hypertension Unknown grandmother Cardiac disease Unknown Reason for Referral Specialty Diagnoses / Procedures Referred By Maddison peters Referred To Contact CT IMAGING Diagnoses Injury of head, subsequent encounter Procedures CT BRAIN WO IVCON CT HEAD/BRAIN W/O CONTRAST MATERIAL Clarence Berry, COMMERCIAL ACCOUNT EXECUTIVE.SENIOR PATIENT ACCOUNT REPRESENTATIVE [address] [place] [address] Ct Imaging Referral ID Status Reason Start Date Expiration Date V isits Requested Visits Authorized [id number] Closed Auto-Generate d Referral 10/10/2022 11/09/2023 1 1 Specialty Diagnoses / Procedures Referred By Maddison peters Referred To Contact [facility] Diagnoses Contusion of right foot, initial encounter Contusion of caodaism region, initial encounter Injury of coccyx, initial encounter Facial pain Jaw pain Procedures CONSULT TO PHYSICAL THERAPY PHYSICAL THERAPY EVALUATION HIGH COMPLEX 45 MINS Clarence Berry, COMMERCIAL ACCOUNT EXECUTIVE.SENIOR PATIENT ACCOUNT REPRESENTATIVE [address] [place] [address] [facility] [place] [address] [place] [address] Referral ID Status Reason Start Date Expiration Date Visits Requested Visits Authorized [id number] Authorized PCP Requested Referral Auto-Generate d Referral 10/10/2022 10/10/2023 99 99 Specialty Diagnoses / Procedures Referred By Contac t Referred To Contact Gastroenterology 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 Procedures CONSULT TO GASTROENTEROLOGY OFFICE/OUTPATIENT [facility] 60-74 MINUTES BerryClarence kirkpatrick, COMMERCIAL ACCOUNT EXECUTIVE.SENIOR PATIENT ACCOUNT REPRESENTATIVE [address] [place] [address] Referral ID Status Reason Start Date Expiration Date Visits Requested Visits Authorized [id number] Authorized PCP Requested Referral 3 05/30/2024 1 1 Specialty Diagnoses / Procedures Referred By Contac t Referred To Contact CT IMAGING Diagnoses Injury of head, subsequent encounter Procedures CT BRAIN WO IVCON CT HEAD/BRAIN W/O CONTRAST MATERIAL BerryClarence kirkpatrick, COMMERCIAL ACCOUNT EXECUTIVE.SENIOR PATIENT ACCOUNT REPRESENTATIVE [address] [place] [address] [place] [address] Specialty Diagnoses / Procedures Referred By Contac t Referred To Contact Orthopedics Diagnoses Pain in left ta Procedures CONSULT TO ORTHOPAEDICS OFFICE/OUTPATIENT [facility] 60-74 MINUTES CascadeClarence, COMMERCIAL ACCOUNT EXECUTIVE.SENIOR PATIENT ACCOUNT REPRESENTATIVE [address] [place] [address] Referral ID Status Reason Start Date Expiration Date Visits Requested Visits Authorized [id number] Authorized PCP Requested Referral 3 07/01/2024 1 1 Summary Purpose Additional Source Comments Source Comments (unrecognize d section and content) In the event this informatio n is protected by the Federal Confidentiality of Alcohol and Drug Abuse Patient Records regulations: The Federal rules restrict any use of the information to criminally investigate or prosecute any alcohol or drug abuse patient.[facility] the event this information is protected by the Federal Confidentiality of Alcohol and Drug Abuse Patient Records regulations: The Federal rules restrict any use of the information to criminally investigate or prosecute any alcohol or drug abuse patient.[facility] the event this information is protected by the Federal Confidentiality of Alcohol and Drug Abuse Patient Records regulations: The Federal rules restrict any use of the information to criminally investigate or prosecute any alcohol or drug abuse patient.[facility] the event this information is protected by the Federal Confidentiality of Alcohol and Drug Abuse Patient Records regulations: The Federal rules restrict any use of the information to criminally investigate or prosecute any alcohol or drug abuse patient.[facility] the event this information is protected by the Federal Confidentiality of Alcohol and Drug Abuse Patient Records regulations: The Federal rules restrict any use of the information to criminally investigate or prosecute any alcohol or drug abuse patient.[facility] the event this information is protected by the Federal Confidentiality of Alcohol and Drug Abuse Patient Records regulations: The Federal rules restrict any use of the information to criminally investigate or prosecute any alcohol or drug abuse patient.[facility] the event this information is protected by the Federal Confidentiality of Alcohol and Drug Abuse Patient Records regulations: The Federal rules restrict any use of the information to criminally investigate or prosecute any alcohol or drug abuse patient.[facility] CenterIn the event this information is protected by the Federal Confidentiality of Alcohol and Drug Abuse Patient Records regulations: The Federal rules restrict any use of the information to criminally investigate or prosecute any alcohol or drug abuse patient.[facility] CenterIn the event this information is protected by the Federal Confidentiality of Alcohol and Drug Abuse Patient Records regulations: The Federal rules restrict any use of the information to criminally investigate or prosecute any alcohol or drug abuse patient.[facility] CenterIn the event this information is protected by the Federal Confidentiality of Alcohol and Drug Abuse Patient Records regulations: The Federal rules restrict any use of the information to criminally investigate or prosecute any alcohol or drug abuse patient.[facility] CenterIn the event this information is protected by the Federal Confidentiality of Alcohol and Drug Abuse Patient Records regulations: The Federal rules restrict any use of the information to criminally investigate or prosecute any alcohol or drug abuse patient.[facility] CenterIn the event this information is protected by the Federal Confidentiality of Alcohol and Drug Abuse Patient Records regulations: The Federal rules restrict any use of the information to criminally investigate or prosecute any alcohol or drug abuse patient.[facility] CenterIn the event this information is protected by the Federal Confidentiality of Alcohol and Drug Abuse Patient Records regulations: The Federal rules restrict any use of the information to criminally investigate or prosecute any alcohol or drug abuse patient.[facility] CenterIn the event this information is protected by the Federal Confidentiality of Alcohol and Drug Abuse Patient Records regulations: The Federal rules restrict any use of the information to criminally investigate or prosecute any alcohol or drug abuse patient.[facility] CenterIn the event this information is protected by the Federal Confidentiality of Alcohol and Drug Abuse Patient Records regulations: The Federal rules restrict any use of the information to criminally investigate or prosecute any alcohol or drug abuse patient.[facility] CenterIn the event this information is protected by the Federal Confidentiality of Alcohol and Drug Abuse Patient Records regulations: The Federal rules restrict any use of the information to criminally investigate or prosecute any alcohol or drug abuse patient.[facility] CenterIn the event this information is protected by the Federal Confidentiality of Alcohol and Drug Abuse Patient Records regulations: The Federal rules restrict any use of the information to criminally investigate or prosecute any alcohol or drug abuse patient.[facility] CenterIn the event this information is protected by the Federal Confidentiality of Alcohol and Drug Abuse Patient Records regulations: The Federal rules restrict any use of the information to criminally investigate or prosecute any alcohol or drug abuse patient.[facility] CenterIn the event this information is protected by the Federal Confidentiality of Alcohol and Drug Abuse Patient Records regulations: The Federal rules restrict any use of the information to criminally investigate or prosecute any alcohol or drug abuse patient.[facility] CenterIn the event this information is protected by the Federal Confidentiality of Alcohol and Drug Abuse Patient Records regulations: The Federal rules restrict any use of the information to criminally investigate or prosecute any alcohol or drug abuse patient.[facility] CenterIn the event this information is protected by the Federal Confidentiality of Alcohol and Drug Abuse Patient Records regulations: The Federal rules restrict any use of the information to criminally investigate or prosecute any alcohol or drug abuse patient.[facility] CenterIn the event this information is protected by the Federal Confidentiality of Alcohol and Drug Abuse Patient Records regulations: The Federal rules restrict any use of the information to criminally investigate or prosecute any alcohol or drug abuse patient.[facility] CenterIn the event this information is protected by the Federal Confidentiality of Alcohol and Drug Abuse Patient Records regulations: The Federal rules restrict any use of the information to criminally investigate or prosecute any alcohol or drug abuse patient.[facility] CenterIn the event this information is protected by the Federal Confidentiality of Alcohol and Drug Abuse Patient Records regulations: The Federal rules restrict any use of the information to criminally investigate or prosecute any alcohol or drug abuse patient.[facility] CenterIn the event this information is protected by the Federal Confidentiality of Alcohol and Drug Abuse Patient Records regulations: The Federal rules restrict any use of the information to criminally investigate or prosecute any alcohol or drug abuse patient.[facility] CenterIn the event this information is protected by the Federal Confidentiality of Alcohol and Drug Abuse Patient Records regulations: The Federal rules restrict any use of the information to criminally investigate or prosecute any alcohol or drug abuse patient.[facility] CenterIn the event this information is protected by the Federal Confidentiality of Alcohol and Drug Abuse Patient Records regulations: The Federal rules restrict any use of the information to criminally investigate or prosecute any alcohol or drug abuse patient.[facility] CenterIn the event this information is protected by the Federal Confidentiality of Alcohol and Drug Abuse Patient Records regulations: The Federal rules restrict any use of the information to criminally investigate or prosecute any alcohol or drug abuse patient.[facility] CenterIn the event this information is protected by the Federal Confidentiality of Alcohol and Drug Abuse Patient Records regulations: The Federal rules restrict any use of the information to criminally investigate or prosecute any alcohol or drug abuse patient.[facility] CenterIn the event this information is protected by the Federal Confidentiality of Alcohol and Drug Abuse Patient Records regulations: The Federal rules restrict any use of the information to criminally investigate or prosecute any alcohol or drug abuse patient.[facility] CenterIn the event this information is protected by the Federal Confidentiality of Alcohol and Drug Abuse Patient Records regulations: The Federal rules restrict any use of the information to criminally investigate or prosecute any alcohol or drug abuse patient.[facility] CenterIn the event this information is protected by the Federal Confidentiality of Alcohol and Drug Abuse Patient Records regulations: The Federal rules restrict any use of the information to criminally investigate or prosecute any alcohol or drug abuse patient.[facility] CenterIn the event this information is protected by the Federal Confidentiality of Alcohol and Drug Abuse Patient Records regulations: The Federal rules restrict any use of the information to criminally investigate or prosecute any alcohol or drug abuse patient.[facility] CenterIn the event this information is protected by the Federal Confidentiality of Alcohol and Drug Abuse Patient Records regulations: The Federal rules restrict any use of the information to criminally investigate or prosecute any alcohol or drug abuse patient.[facility] CenterIn the event this information is protected by the Federal Confidentiality of Alcohol and Drug Abuse Patient Records regulations: The Federal rules restrict any use of the information to criminally investigate or prosecute any alcohol or drug abuse patient.[facility] CenterIn the event this information is protected by the Federal Confidentiality of Alcohol and Drug Abuse Patient Records regulations: The Federal rules restrict any use of the information to criminally investigate or prosecute any alcohol or drug abuse patient.[facility] CenterIn the event this information is protected by the Federal Confidentiality of Alcohol and Drug Abuse Patient Records regulations: The Federal rules restrict any use of the information to criminally investigate or prosecute any alcohol or drug abuse patient.[facility] CenterIn the event this information is protected by the Federal Confidentiality of Alcohol and Drug Abuse Patient Records regulations: The Federal rules restrict any use of the information to criminally investigate or prosecute any alcohol or drug abuse patient.[facility] CenterIn the event this information is protected by the Federal Confidentiality of Alcohol and Drug Abuse Patient Records regulations: The Federal rules restrict any use of the information to criminally investigate or prosecute any alcohol or drug abuse patient.[facility] CenterIn the event this information is protected by the Federal Confidentiality of Alcohol and Drug Abuse Patient Records regulations: The Federal rules restrict any use of the information to criminally investigate or prosecute any alcohol or drug abuse patient.[facility] CenterIn the event this information is protected by the Federal Confidentiality of Alcohol and Drug Abuse Patient Records regulations: The Federal rules restrict any use of the information to criminally investigate or prosecute any alcohol or drug abuse patient.[facility] CenterIn the event this information is protected by the Federal Confidentiality of Alcohol and Drug Abuse Patient Records regulations: The Federal rules restrict any use of the information to criminally investigate or prosecute any alcohol or drug abuse patient.[facility] CenterIn the event this information is protected by the Federal Confidentiality of Alcohol and Drug Abuse Patient Records regulations: The Federal rules restrict any use of the information to criminally investigate or prosecute any alcohol or drug abuse patient.[facility] CenterIn the event this information is protected by the Federal Confidentiality of Alcohol and Drug Abuse Patient Records regulations: The Federal rules restrict any use of the information to criminally investigate or prosecute any alcohol or drug abuse patient.[facility] CenterIn the event this information is protected by the Federal Confidentiality of Alcohol and Drug Abuse Patient Records regulations: The Federal rules restrict any use of the information to criminally investigate or prosecute any alcohol or drug abuse patient.[facility] CenterIn the event this information is protected by the Federal Confidentiality of Alcohol and Drug Abuse Patient Records regulations: The Federal rules restrict any use of the information to criminally investigate or prosecute any alcohol or drug abuse patient.[facility] CenterIn the event this information is protected by the Federal Confidentiality of Alcohol and Drug Abuse Patient Records regulations: The Federal rules restrict any use of the information to criminally investigate or prosecute any alcohol or drug abuse patient.[facility] CenterIn the event this information is protected by the Federal Confidentiality of Alcohol and Drug Abuse Patient Records regulations: The Federal rules restrict any use of the information to criminally investigate or prosecute any alcohol or drug abuse patient.[facility] CenterIn the event this information is protected by the Federal Confidentiality of Alcohol and Drug Abuse Patient Records regulations: The Federal rules restrict any use of the information to criminally investigate or prosecute any alcohol or drug abuse patient.[facility] CenterIn the event this information is protected by the Federal Confidentiality of Alcohol and Drug Abuse Patient Records regulations: The Federal rules restrict any use of the information to criminally investigate or prosecute any alcohol or drug abuse patient.[facility] CenterIn the event this information is protected by the Federal Confidentiality of Alcohol and Drug Abuse Patient Records regulations: The Federal rules restrict any use of the information to criminally investigate or prosecute any alcohol or drug abuse patient.[facility] CenterIn the event this information is protected by the Federal Confidentiality of Alcohol and Drug Abuse Patient Records regulations: The Federal rules restrict any use of the information to criminally investigate or prosecute any alcohol or drug abuse patient.[facility] CenterIn the event this information is protected by the Federal Confidentiality of Alcohol and Drug Abuse Patient Records regulations: The Federal rules restrict any use of the information to criminally investigate or prosecute any alcohol or drug abuse patient.[facility] CenterIn the event this information is protected by the Federal Confidentiality of Alcohol and Drug Abuse Patient Records regulations: The Federal rules restrict any use of the information to criminally investigate or prosecute any alcohol or drug abuse patient.[facility] CenterIn the event this information is protected by the Federal Confidentiality of Alcohol and Drug Abuse Patient Records regulations: The Federal rules restrict any use of the information to criminally investigate or prosecute any alcohol or drug abuse patient.[facility] CenterIn the event this information is protected by the Federal Confidentiality of Alcohol and Drug Abuse Patient Records regulations: The Federal rules restrict any use of the information to criminally investigate or prosecute any alcohol or drug abuse patient.[facility] CenterIn the event this information is protected by the Federal Confidentiality of Alcohol and Drug Abuse Patient Records regulations: The Federal rules restrict any use of the information to criminally investigate or prosecute any alcohol or drug abuse patient.[facility] CenterIn the event this information is protected by the Federal Confidentiality of Alcohol and Drug Abuse Patient Records regulations: The Federal rules restrict any use of the information to criminally investigate or prosecute any alcohol or drug abuse patient.[facility] CenterIn the event this information is protected by the Federal Confidentiality of Alcohol and Drug Abuse Patient Records regulations: The Federal rules restrict any use of the information to criminally investigate or prosecute any alcohol or drug abuse patient.[facility] CenterIn the event this information is protected by the Federal Confidentiality of Alcohol and Drug Abuse Patient Records regulations: The Federal rules restrict any use of the information to criminally investigate or prosecute any alcohol or drug abuse patient.[facility] CenterIn the event this information is protected by the Federal Confidentiality of Alcohol and Drug Abuse Patient Records regulations: The Federal rules restrict any use of the information to criminally investigate or prosecute any alcohol or drug abuse patient.[facility] CenterIn the event this information is protected by the Federal Confidentiality of Alcohol and Drug Abuse Patient Records regulations: The Federal rules restrict any use of the information to criminally investigate or prosecute any alcohol or drug abuse patient.[facility] CenterIn the event this information is protected by the Federal Confidentiality of Alcohol and Drug Abuse Patient Records regulations: The Federal rules restrict any use of the information to criminally investigate or prosecute any alcohol or drug abuse patient.[facility] CenterIn the event this information is protected by the Federal Confidentiality of Alcohol and Drug Abuse Patient Records regulations: The Federal rules restrict any use of the information to criminally investigate or prosecute any alcohol or drug abuse patient.[facility] CenterIn the event this information is protected by the Federal Confidentiality of Alcohol and Drug Abuse Patient Records regulations: The Federal rules restrict any use of the information to criminally investigate or prosecute any alcohol or drug abuse patient.[facility] CenterIn the event this information is protected by the Federal Confidentiality of Alcohol and Drug Abuse Patient Records regulations: The Federal rules restrict any use of the information to criminally investigate or prosecute any alcohol or drug abuse patient.[facility] CenterIn the event this information is protected by the Federal Confidentiality of Alcohol and Drug Abuse Patient Records regulations: The Federal rules restrict any use of the information to criminally investigate or prosecute any alcohol or drug abuse patient.[facility] CenterIn the event this information is protected by the Federal Confidentiality of Alcohol and Drug Abuse Patient Records regulations: The Federal rules restrict any use of the information to criminally investigate or prosecute any alcohol or drug abuse patient.[facility] CenterIn the event this information is protected by the Federal Confidentiality of Alcohol and Drug Abuse Patient Records regulations: The Federal rules restrict any use of the information to criminally investigate or prosecute any alcohol or drug abuse patient.[facility] CenterIn the event this information is protected by the Federal Confidentiality of Alcohol and Drug Abuse Patient Records regulations: The Federal rules restrict any use of the information to criminally investigate or prosecute any alcohol or drug abuse patient.[facility] CenterIn the event this information is protected by the Federal Confidentiality of Alcohol and Drug Abuse Patient Records regulations: The Federal rules restrict any use of the information to criminally investigate or prosecute any alcohol or drug abuse patient.[facility] CenterIn the event this information is protected by the Federal Confidentiality of Alcohol and Drug Abuse Patient Records regulations: The Federal rules restrict any use of the information to criminally investigate or prosecute any alcohol or drug abuse patient.[facility] CenterIn the event this information is protected by the Federal Confidentiality of Alcohol and Drug Abuse Patient Records regulations: The Federal rules restrict any use of the information to criminally investigate or prosecute any alcohol or drug abuse patient.[facility] CenterIn the event this information is protected by the Federal Confidentiality of Alcohol and Drug Abuse Patient Records regulations: The Federal rules restrict any use of the information to criminally investigate or prosecute any alcohol or drug abuse patient.[facility] CenterIn the event this information is protected by the Federal Confidentiality of Alcohol and Drug Abuse Patient Records regulations: The Federal rules restrict any use of the information to criminally investigate or prosecute any alcohol or drug abuse patient.[facility] CenterIn the event this information is protected by the Federal Confidentiality of Alcohol and Drug Abuse Patient Records regulations: The Federal rules restrict any use of the information to criminally investigate or prosecute any alcohol or drug abuse patient.[facility] CenterIn the event this information is protected by the Federal Confidentiality of Alcohol and Drug Abuse Patient Records regulations: The Federal rules restrict any use of the information to criminally investigate or prosecute any alcohol or drug abuse patient.[facility] CenterIn the event this information is protected by the Federal Confidentiality of Alcohol and Drug Abuse Patient Records regulations: The Federal rules restrict any use of the information to criminally investigate or prosecute any alcohol or drug abuse patient.[facility] CenterIn the event this information is protected by the Federal Confidentiality of Alcohol and Drug Abuse Patient Records regulations: The Federal rules restrict any use of the information to criminally investigate or prosecute any alcohol or drug abuse patient.[facility] Reason for Visit (unrecogniz ed section and content) Reason Onset Date Comments Refill Request 12/01/2021 Reason Comments Patient Question EGD, medication ques [...] without dysplasia Procedures CONSULT TO GASTROENTEROLOGY OFFICE/OUTPATIENT NEW HIGH MDM 60-74 MINUTES Clarence Berry, MASOUD.SENIOR PATIENT ACCOUNT REPRESENTATIVE [address] [place] [address] Referral ID Status Reason Start Date Expiration Date V isits Requested Visits Authorized [id number] Closed PCP Requested Referral 05/31/2023 05/30/2024 [address] Specialty Diagnoses / Procedures Referred By Maddison t Referred To Contact CT IMAGING Diagnoses Injury of head, subsequent encounter Procedures CT BRAIN WO IVCON CT HEAD/BRAIN W/O CONTRAST MATERIAL BerryClarence, COMMERCIAL ACCOUNT EXECUTIVE.SENIOR PATIENT ACCOUNT REPRESENTATIVE [address] [place] [address] [place] [id number] Referral ID Status Reason Start Date Expiration Date V isits Requested Visits Authorized [id number] Closed Auto-Generate d Referral 10/10/2022 11/09/2023 1 1 Reason Comments FYI-PT plan of care Reason Comments Home Health Update Reason Comments Hospital F/U Reason Onset Date Comments Refill Request 07/19/2023 Reason Comments 4 mo follow up Reason Comments Urinary Frequency burning and pain wit h urination x 2 days Reason Onset Date Comments Refill Request 12/24/2023 Reason Onset Date Comments Refill Request 01/14/2024 Reason Comments Cough Coughing, wheezing a nd sinus x 5 days Reason Comments Cough Sob, chest congestio n, MUNIZ, vomiting x 7 days Reason Comments 4 month f/u Reason Comments Stress Test Instructions for 03/10/24 Reason Comments Refill Request Reason Comments Stress Test Instructions for 05/05/24 Reason Comments Headache Reason Comments F/U 4 month Reason Comments Transition Of Care D/C [facility] 07/12/24 for syncope Reason Comments Follow Reason Comments Home Health Point of Care Results Reason Comments [facility] OT updated POC Reason Comments Patient Update Reason Comments ST plan of care Reason Comments Medication Problem Reason Onset Date Comments Population Health Navigation Outreach 11/20/2024 [place]/Workbench/ACO Reason Comments Occupatioal Therapy Updated Plan of Care Reason Comments Delay of care- OT [facility] Reason Comments OT plan of care Reason Onset Date Comments Home Care Management 12/17/2024 Reason Onset Date Comments Population Health Navigation Outreach 12/23/2024 [place]/Workbench/ACO Reason Onset Date Comments Population Health Navigation Outreach 01/22/2025 Jovana/Workbench/ACO Reason Onset Date Comments Population Health Navigation Outreach 02/23/2025 [place]/Workbench/ACO Reason Onset Date Comments Population Health Navigation Outreach 03/26/2025 [place]/Workbench/ACO Care Teams (unrecognized sec tion and content) Vamp Presser Relationship Specialty Start Date End Date Alicia Blount MD [address] [place] [address] PCP - General Internal Medicine 01/17/17 Vamp Presser Relationship Specialty Start Date End Date Alicia Blount MD [address] [place] [address], [place] [address] PCP - General Internal Medicine 01/17/17 Vamp Presser Relationship Specialty Start Date End Date Alicia Blount MD [address] [place] [address], [place] [address] PCP - General Internal Medicine 01/17/17 Vamp Presser Relationship Specialty Start Date End Date Alicia Blount MD [address] [place] [address], [place] [address] PCP - General Internal Medicine 01/17/17 Vamp Presser Relationship Specialty Start Date End Date Alicia Blount MD [address] [place] [address], [place] [address] PCP - General Internal Medicine 01/17/17 Vamp Presser Relationship Specialty Start Date End Date Alicia Blount MD [address] [place] [address], [place] [address] PCP - General Internal Medicine 01/17/17 Vamp Presser Relationship Specialty Start Date End Date Alicia Blount MD [address] [place] [address], [place] [address] PCP - General Internal Medicine 01/17/17 Vamp Presser Relationship Specialty Start Date End Date Alicia Blount MD [address] [place] [address], [place] [address] PCP - General Internal Medicine 01/17/17 Vamp Presser Relationship Specialty Start Date End Date Alicia Blount MD [address] [place] [address] PCP - General Internal Medicine 01/17/17 Vamp Presser Relationship Specialty Start Date End Date Alicia Blount MD [address] [place] [address] PCP - General Internal Medicine 01/17/17 Vamp Presser Relationship Specialty Start Date End Date Alicia Blount MD [address] [place] [address] PCP - General Internal Medicine 01/17/17 Vamp Presser Relationship Specialty Start Date End Date Alicia Blount MD [address] [place] [address] PCP - General Internal Medicine 01/17/17 Vamp Presser Relationship Specialty Start Date End Date Alicia Blount MD [address] [place] [address] PCP - General Internal Medicine 01/17/17 Vamp Presser Relationship Specialty Start Date End Date Alicia Blount MD [address] [place] [address] PCP - General Internal Medicine 01/17/17 Team Status: Active Member Role Status Dates Dr. Alicia Blount MD Family Provider Active Dr. Alicia Blount MD Primary Care Provider Active Team Status: Inactive Member Role Status Dates Dr. Alicia Blount MD Primary Care Provider, Referr ing Provider Active Dr. Genny Munguia MD Attending Provider Active Team Status: Inactive Member Role Status Dates Dr. Alicia Blount MD Primary Care Provider, Referr ing Provider Active Johana Cat GAS CONTROLLER, GAS CONTROLLER-C Attending Provider Active Team Status: Active Member Role Status Dates Dr. Alicia Blount MD Primary Care Provider Active Johana Cat GAS CONTROLLER, GAS CONTROLLER-C Referring Provider, Other Pr ovider Active Dr. Jamar Chanel DO Attending Provider Active Team Status: Active Member Role Status Dates Dr. Alicia Blount MD Primary Care Provider Active Johana Cat GAS CONTROLLER, GAS CONTROLLER-C Referring Provider, Other Pr ovider Active Dr. Reji Bran MD Attending Provider Active Team Status: Active Member Role Status Dates Dr. Alicia Blount MD Primary Care Provider Active Dr. Anna Espinoza MD Attending Provider Activ e Team Status: Inactive Member Role Status Dates Dr. Alicia Blount MD Primary Care Provider Active Johana Cat GAS CONTROLLER, GAS CONTROLLER-C Attending Provider Active Team Status: Inactive Member Role Status Dates Dr. Alicia Blount MD Primary Care Provider Active Johana Cat GAS CONTROLLER, GAS CONTROLLER-C Attending Provider, Referrin g Provider Active Team Status: Active Member Role Status Dates Dr. Alicia Blount MD Primary Care Provider Active Johana Cat GAS CONTROLLER, GAS CONTROLLER-C Attending Provider Active Vamp Presser Relationship Specialty Start Date End Date Alicia Blount MD [address] [place] [address] PCP - General Internal Medicine 01/17/17 Vamp Presser Relationship Specialty Start Date End Date Alicia Blount MD [address] [place] [address] PCP - General Internal Medicine 01/17/17 Vamp Presser Relationship Specialty Start Date End Date Alicia Blount MD [address] [facility] [place] [address] PCP - General Internal Medicine 01/17/17 Vamp Presser Relationship Specialty Start Date End Date Ailcia Blount MD [address] [facility] [place] [address] PCP - General Internal Medicine 01/17/17 Vamp Presser Relationship Specialty Start Date End Date Alicia Blount MD [address] [place] [address] PCP - General Internal Medicine 01/17/17 Vamp Presser Relationship Specialty Start Date End Date Alicia Blount MD [address] [place] [address] PCP - General Internal Medicine 01/17/17 Vamp Presser Relationship Specialty Start Date End Date Alicia Blount MD [address] [place] [address] PCP - General Internal Medicine 01/17/17 Vamp Presser Relationship Specialty Start Date End Date Alicia Blount MD [address] [place] [address] PCP - General Internal Medicine 01/17/17 Vamp Presser Relationship Specialty Start Date End Date Alicia Blount MD [address] [place] [address] PCP - General Internal Medicine 01/17/17 Vamp Presser Relationship Specialty Start Date End Date Alicia Blount MD [address] [place] [address] PCP - General Internal Medicine 01/17/17 Vamp Presser Relationship Specialty Start Date End Date Alicia Blount MD [address] [place] [address] PCP - General Internal Medicine 01/17/17 Team Status: Inactive Member Role Status Dates Dr. Alicia Blount MD Primary Care Provider, Referr ing Provider Active Dr. Hernando Pandya MD Attending Provider Active Team Status: Active Member Role Status Dates Dr. Alicia Blount MD Primary Care Provider Active Dr. Dada Maynard DO Emergency Provider Active Dr. Edwin Morgan MD Admit Provider, Attending Pro vider Active Vamp Presser Relationship Specialty Start Date End Date Alicia Blount MD [address] [place] [address] PCP - General Internal Medicine 01/17/17 Team Status: Inactive Member Role Status Dates Dr. Alicia Blount MD Primary Care Provider Active Dr. Hernando Pandya MD Attending Provider, Referring Provider Active Team Status: Active Member Role Status Dates Dr. Alicia Blount MD Primary Care Provider Active Dr. Dada Maynard DO Emergency Provider Active Dr. Edwin Morgan MD Admit Provider, Other Provide r Active Dr. Rubin Houser MD Attending Provider, Other Provider Active Team Status: Active Member Role Status Dates Dr. Alicia Blount MD Primary Care Provider Active Dr. Dada Maynard DO Emergency Provider Active Dr. Edwin Morgan MD Admit Provider, Other Provide r Active Dr. Nacho Poe MD Attending Provider, Other Provid er Active Dr. Rubin Houser MD Other Provider Active Team Status: Inactive Member Role Status Dates Dr. Alicia Blount MD Primary Care Provider Active Dr. Dada Maynard DO Emergency Provider Active Dr. Edwin Morgan MD Admit Provider, Other Provide r Active Dr. Nacho Poe MD Attending Provider Active Dr. Rubin Houser MD Other Provider Active Team Status: Inactive Member Role Status Dates Dr. Alicia Blount MD Primary Care Provider Active Dr. Denzel Forbes MD Attending Provider, Referring Pr ovider Active Team Status: Active Member Role Status Dates Dr. Alicia Blount MD Primary Care Provider Active Dr. Denzel Forbes MD Admit Provider, Attending Provid er Active Team Status: Active Member Role Status Dates Dr. Alicia Blount MD Primary Care Provider Active Dr. Denzel Forbes MD Attending Provider Active Team Status: Inactive Member Role Status Dates Dr. Alicia Blount MD Primary Care Provider Active Dr. Denzel Forbes MD Attending Provider Active Vamp Presser Relationship Specialty Start Date End Date Alicia Blount MD [address] [place] [address] PCP - General Internal Medicine 01/17/17 Vamp Presser Relationship Specialty Start Date End Date Alicia Blount MD [address] [place] [address] PCP - General Internal Medicine 01/17/17 Vamp Presser Relationship Specialty Start Date End Date Alicia Blount MD [address] [place] [address] PCP - General Internal Medicine 01/17/17 Team Status: Inactive Member Role Status Dates Dr. Alicia Blount MD Primary Care Provider, Referr ing Provider Active Chaz Soto MD Attending Provider Active Team Status: Inactive Member Role Status Dates Dr. Alicia Blount MD Primary Care Provider Active Dr. Cooper Coates MD Attending Provider Active Team Status: Inactive Member Role Status Dates Dr. Alicia Blount MD Primary Care Provider Active Chaz Soto MD Attending Provider, Referring Prov ider Active Team Status: Inactive Member Role Status Dates Dr. Alicia Blount MD Primary Care Provider Active Dr. Denzel Forbes MD Admit Provider, Attending Provid er Active Vamp Presser Relationship Specialty Start Date End Date Alicia Blount MD [address] [place] [address] PCP - General Internal Medicine 01/17/17 Vamp Presser Relationship Specialty Start Date End Date Alicia Blount MD [address] [place] [address] PCP - General Internal Medicine 01/17/17 Vamp Presser Relationship Specialty Start Date End Date Alicia Blount MD [address] [place], [place] [address] PCP - General Internal Medicine 01/17/17 Vamp Presser Relationship Specialty Start Date End Date Alicia Blount MD [address] [place] [address] PCP - General Internal Medicine 01/17/17 Vamp Presser Relationship Specialty Start Date End Date Alicia Blount MD [address] [place] [address] PCP - General Internal Medicine 01/17/17 Vamp Presser Relationship Specialty Start Date End Date Alicia Blount MD [address] [place] [address] PCP - General Internal Medicine 01/17/17 Vamp Presser Relationship Specialty Start Date End Date Alicia Blount MD [address] [place] [address] PCP - General Internal Medicine 01/17/17 Vamp Presser Relationship Specialty Start Date End Date Alicia Blount MD [address] [place] [address] PCP - General Internal Medicine 01/17/17 Vamp Presser Relationship Specialty Start Date End Date Alicia Blount MD [address] [place] [address] PCP - General Internal Medicine 01/17/17 Vamp Presser Relationship Specialty Start Date End Date Alicia Blount MD [address] [place] [address] PCP - General Internal Medicine 01/17/17 Vamp Presser Relationship Specialty Start Date End Date Alicia Blount MD [address] [place] [address] PCP - General Internal Medicine 01/17/17 Vamp Presser Relationship Specialty Start Date End Date Alicia Blount MD [address] [place] [address] PCP - General Internal Medicine 01/17/17 Vamp Presser Relationship Specialty Start Date End Date Alicia Blount MD [address] [place] [address] PCP - General Internal Medicine 01/17/17 Ellen Gonzalez, MANNY [address] [place] [address] Primary Care Portrait Photographer 07/14/24 Vamp Presser Relationship Specialty Start Date End Date Alicia Blount MD [address] [place] [address] PCP - General Internal Medicine 01/17/17 Ellen Gonzalez, MANNY [address] [place] [address] Primary Care Portrait Photographer 07/14/24 Clarence Berry, COMMERCIAL ACCOUNT EXECUTIVE.SENIOR PATIENT ACCOUNT REPRESENTATIVE [address] [place] [address] Nurse Practitioner Adult Internal Medicine 07/21/24 Isabella Emerson COMMERCIAL ACCOUNT EXECUTIVE.GREENSKEEPER HEAD [address] [place] [address] Nurse Practitioner Adult Internal Medicine 07/21/24 Vamp Presser Relationship Specialty Start Date End Date Alicia Blount MD [address] [place] [address] PCP - General Internal Medicine 01/17/17 Ellen Gonzalez, MANNY [address] [place] [address] Primary Care Portrait Photographer 07/14/24 Vamp Presser Relationship Specialty Start Date End Date Alicia Blount MD [address] [place] [address] PCP - General Internal Medicine 01/17/17 Clarence Berry, COMMERCIAL ACCOUNT EXECUTIVE.SENIOR PATIENT ACCOUNT REPRESENTATIVE [address] [place] [address] Nurse Practitioner Adult Internal Medicine 07/21/24 Isabella Emerson COMMERCIAL ACCOUNT EXECUTIVE.GREENSKEEPER HEAD [address] [place] [address] Nurse Practitioner Adult Internal Medicine 07/21/24 Vamp Presser Relationship Specialty Start Date End Date Alicia Blount MD [address] [place] [address] PCP - General Internal Medicine 01/17/17 Clarence Berry, COMMERCIAL ACCOUNT EXECUTIVE.SENIOR PATIENT ACCOUNT REPRESENTATIVE [address] [place] [address] Nurse Practitioner Adult Internal Medicine 07/21/24 Isabella Emerson APRN.GREENSKEEPER HEAD [address] [place] [address] Nurse Practitioner Adult Internal Medicine 07/21/24 Shelby Dee, MANNY [address] [place] [id number] Primary Care Portrait Photographer 10/20/24 10/20/24 Vamp Presser Relationship Specialty Start Date End Date Alicia Blount MD [address] [place] [address] PCP - General Internal Medicine 01/17/17 Clarence Berry, COMMERCIAL ACCOUNT EXECUTIVE.SENIOR PATIENT ACCOUNT REPRESENTATIVE [address] [place] [address] Nurse Practitioner Adult Internal Medicine 07/21/24 Isabella Emerson COMMERCIAL ACCOUNT EXECUTIVE.GREENSKEEPER HEAD [address] [place] [address] Formerly [facility] Internal Medicine 07/21/24 Vamp Presser Relationship Specialty Start Date End Date Alicia Blount MD [address] [place] [address] PCP - General Internal Medicine 01/17/17 Clarence Berry, COMMERCIAL ACCOUNT EXECUTIVE.SENIOR PATIENT ACCOUNT REPRESENTATIVE [address] [place] [address] Formerly [facility] Internal Medicine 07/21/24 Isabella Emerson COMMERCIAL ACCOUNT EXECUTIVE.GREENSKEEPER HEAD [address] [place] [address] [facility] Internal Medicine 07/21/24 Vamp Presser Relationship Specialty Start Date End Date Alicia Blount MD [address] [place] [address] PCP - General Internal Medicine 01/17/17 Clarence Berry, COMMERCIAL ACCOUNT EXECUTIVE.SENIOR PATIENT ACCOUNT REPRESENTATIVE [address] [place] [address] [facility] Internal Medicine 07/21/24 Isabella Emerson COMMERCIAL ACCOUNT EXECUTIVE.GREENSKEEPER HEAD [address] [place] [address] [facility] Internal Medicine 07/21/24 Vamp Presser Relationship Specialty Start Date End Date Alicia Blount MD [address] [place] [address] PCP - General Internal Medicine 01/17/17 Clarence Berry, COMMERCIAL ACCOUNT EXECUTIVE.SENIOR PATIENT ACCOUNT REPRESENTATIVE [address] [place] [address] Nurse Practitioner Adult Internal Medicine 07/21/24 Isabella Emerson APRN.GREENSKEEPER HEAD [address] [place] [address] Nurse Practitioner Adult Internal Medicine 07/21/24 Vamp Presser Relationship Specialty Start Date End Date Alicia Blount MD [address] [place] [address] PCP - General Internal Medicine 01/17/17 Clarence Berry, COMMERCIAL ACCOUNT EXECUTIVE.SENIOR PATIENT ACCOUNT REPRESENTATIVE [address] [place] [address] Nurse Practitioner Adult Internal Medicine 07/21/24 Isabella Emerson APRN.GREENSKEEPER HEAD [address] [place] [address] Nurse Practitioner Adult Internal Medicine 11/04/24 Vamp Presser Relationship Specialty Start Date End Date Alicia Blount MD [address] [place] [address] PCP - General Internal Medicine 01/17/17 Clarence Berry, COMMERCIAL ACCOUNT EXECUTIVE.SENIOR PATIENT ACCOUNT REPRESENTATIVE [address] [place] [address] Nurse Practitioner Adult Internal Medicine 07/21/24 Isabella Emerson APRN.GREENSKEEPER HEAD [address] [place] [address] Nurse Practitioner Adult Internal Medicine 11/04/24 Vamp Presser Relationship Specialty Start Date End Date Alicia Blount MD [address] [place] [address] PCP - General Internal Medicine 01/17/17 Clarence Berry, MASOUD.SENIOR PATIENT ACCOUNT REPRESENTATIVE [address] [place] [address] Nurse Practitioner Adult Internal Medicine 07/21/24 Isabella Emerson APRN.GREENSKEEPER HEAD [address] [place] [address] Nurse Practitioner Adult Internal Medicine 11/04/24 Vamp Presser Relationship Specialty Start Date End Date Alicia Blount MD [address] [place] [address] PCP - General Internal Medicine 01/17/17 Clarence Berry, COMMERCIAL ACCOUNT EXECUTIVE.SENIOR PATIENT ACCOUNT REPRESENTATIVE [address] [place] [address] Nurse Practitioner Adult Internal Medicine 07/21/24 Isabella Emerson APRN.GREENSKEEPER HEAD [address] [place] [address] Nurse Practitioner Adult Internal Medicine 07/21/24 10/31/24 Isabella Emerson COMMERCIAL ACCOUNT EXECUTIVE.GREENSKEEPER HEAD [address] [place] [address] Nurse Practitioner Adult Internal Medicine 11/04/24 Vamp Presser Relationship Specialty Start Date End Date Alicia Blount MD [address] [place] [address] PCP - General Internal Medicine 01/17/17 Isabella Emerson COMMERCIAL ACCOUNT EXECUTIVE.GREENSKEEPER HEAD [address] [place] [address] Formerly [facility] Internal Medicine 11/04/24 Clarence Berry, COMMERCIAL ACCOUNT EXECUTIVE.SENIOR PATIENT ACCOUNT REPRESENTATIVE [address] [place], [place] [address] Formerly [facility] Internal [facility] 12/31/24 Vamp Presser Relationship Specialty Start Date End Date Alicia Blount MD [address] [place], [place] [address] PCP - General Internal Medicine 01/17/17 Isabella Emerson COMMERCIAL ACCOUNT EXECUTIVE.GREENSKEEPER HEAD [address] [place], [place] [id number] [facility] Internal [facility] 11/04/24 Clarence Berry, COMMERCIAL ACCOUNT EXECUTIVE.SENIOR PATIENT ACCOUNT REPRESENTATIVE [address] [place], [place] [address] [facility] Internal [facility] 12/31/24 Goals (unrecognized section and content) Goals may be documented in a n alternate sectionGoals may be documented in an alternate sectionGoals may be documented in an alternate sectionGoals may be documented in an alternate section INFORMATION SOURCE (unrecogn ized section and content) DATE CREATED AUTHOR 06/10/2023 [facility] DATE CREATED AUTHOR AUTHOR'S ORGANIZ ATION 03/28/2025 [facility] DATE CREATED AUTHOR AUTHOR'S ORGANIZ ATION 04/06/2025 [facility] FOR RECORDS PERTAINING TO PATIENTS WHO [...] BE BASED ON THE PRIMARY CLINICAL RECORDS. [employer] provides no warranty or guarantee of the accuracy or completeness of information in this document.
--- OUTSIDE RECORDS SUMMARY | 2025-04-07 22:40 | XMS RPT_ITS | CCD ---
Author Organization [facility] Care Team Providers Care Track Moving Machine Operator Name Role Phone Alicia Blount MD Primary Care Provider Dr. Alicia Blount Primary Care Provider Dr. Alicia Blount Referring Provider Dr. Reji Bran Attending Provider [phone] Dr. Genny Munguia Attending Provider [phone] Cat RIGGER SUPERVISOR, RIGGER SUPERVISOR-C Johaan Attending Provider [phone] Em[facility] RIGGER SUPERVISOR, RIGGER SUPERVISOR-C Johana Other Provider Dr. Jamar Chnael Attending Provider [facility] RIGGER SUPERVISOR, RIGGER SUPERVISOR-C Johana Referring Provider [phone] Alicia Blount MD Primary Care Provider Dr. Alicia Blount Primary Care Provider Dr. Alicia Blount Referring Provider Em[facility] RIGGER SUPERVISOR, RIGGER SUPERVISOR-C Johana Referring Provider [phone] Dr. Reji Bran Attending Provider Dr. Anna Espinoza Attending Provider Dr. Alicia Blount Primary Care Provider Dr. Alicia Blount Referring Provider Dr. Genny Munguia Attending Provider [phone] [facility] RIGGER SUPERVISOR, RIGGER SUPERVISOR-C Johana Attending Provider [phone] Dr. Hernando Pandya Attending Provider SABINO NELSON Attending Unavailable ALICIA BLOUNT Primary Care Unavailable RADAH BALDERRAMA Referring Unavailable Dr. Alicia Blount Primary Care Provider Dr. Alicia Blount Referring Provider Dr. Genny Munguia Attending Provider [facility] RIGGER SUPERVISOR, RIGGER SUPERVISOR-C Johana Attending Provider Dr. Hernando Pandya Attending [...] Care Provider Ellen Gonzalez RN Unavailable Berry AUDIO VISUAL ARTS DIRECTOR.DRUPAL PHP DEVELOPER, Clarence Unavailable Idania AUDIO VISUAL ARTS DIRECTOR.DRIER ATTENDANT, Isabella Unavailable Idania AUDIO VISUAL ARTS DIRECTOR.DRIER ATTENDANT, Isabella Unavailable Leila BRYANT, Shelby Unavailable Idania AUDIO VISUAL ARTS DIRECTOR.DRIER ATTENDANT, Isabella Unavailable Idania AUDIO VISUAL ARTS DIRECTOR.DRIER ATTENDANT, Isabella Unavailable Berry AUDIO VISUAL ARTS DIRECTOR.DRUPAL PHP DEVELOPER, Clarence Unavailable TALAMPAS, ALICIA D Attending Unavailable [...] Attending Unavailable Talampas, Alicia D Referring Unavailable Frankfort, Liliya Primary Care Unavailable White, Kat L [...] WayAmaury peters Referring Unavailable WaytAmaury Attending Unavailable Frank[place], Liliya Primary Care Unavailable Talampas, Alicia D Primary Care Unavailable [place], Liliya Attending Unavailable Frank[place], Liliya Referring Unavailable Yehuda Magana Consulting Unavailable [...] Unavaila ble Talampas, Alicia D Referring Unavailable Frank[place], Liliya Primary Care Unavailable Genny Munguia Attending Unavailable White, Kat L Consulting Unavailable White, Kat L Referring Unavailable Talampas, Alicia D Primary Care Unavailable White, Kat L Admitting Unavailable Christian Hollingsworth Attending Unavailable Talampas, Alicia D Primary Care Unavailable Jordon Jimenez Admitting Unavailable Jordon Jimenez Consulting Unavailable Rubin Houser Attending Unavailable Hernando Pandya Attending Unavailable Frankfort, Liliya Referring Unavailable Radha, Liliya Primary Care [...] Consulting Unavailable Talampas, Alicia D Referring Unavailable Frankfort, Liliya Attending Unavailable Radha, Liliya Primary Care [...] Attending Unavailable Radha, Liliya Primary Care Unavailable Frankfort, Liliya Referring Unavailable Radha, Liliya Primary Care [...] Attending Unavailable Adehellen, Amir Consulting Unavailable Hinduja, Sarah Consulting Unavailable Ez Katia Consulting Unavailable Nelson, Nissa Consulting Unavailable InaJuno timak Consulting Unavailable Edilma Fermin Consulting Unavailable Ilya Guidry Consulting Unavailable Jordyn Torres Consulting Unavailable Germán Zurita Consulting Unavailable Mallory Brown Consulting Unavailable Amaury Youngblood Consulting Unavailable Eulalia Rangel Consulting Unavailable Lina Mcdonald Consulting Unavailable Zaghlouleh, Mhd Richar Consulting UnavailAmadro Pitts Consulting Unavailable Colon, Rami Consulting Unavailable Meir, Abdullahi Consulting Unavailable Onofre, Leonie Consulting Unavailable Hannageorgiana, Yousef Consulting Unavailable Daya Adhikari Consulting Unavailable Talampas, Alicia D Primary Care Unavailable Nikky Pastor Admitting Unavaila Nikky Martinez Attending Unavaila Hernando Betancourt Attending Unavailable Hernando Pandya Referring Unavailable Frankfort, Liliya Primary Care Unavailable Talampas, Alicia D [...] Adhesive Tape Substance Allergy 08-31-19 09 Hives [facility] Work Phone: Aspirin (1 source) Aspirin Drug Allergy 04-16-20 18 Contraindicati on-Medical Surgical [facility] Azole Antifungals (1 source) Miconazole Drug Allergy 12-30-19 21 Other: See Comments [facility] bacitracin / neomycin / polymyxin b (1 source) bacitracin / neomycin / polymyxin b Drug Allergy 08-31-19 09 Rash [facility] Ibandronate (1 source) Ibandronate Drug Allergy 12-05-19 09 GI Upset [facility] Iodine (and Iodine containting drugs) (1 source) Iodine Drug Allergy 08-25-19 09 Vomiting [facility] metFORMIN (1 source) metFORMIN Drug Allergy 05-10-20 11 Diarrhea [facility] Work Phone: NITROFURANTOIN, MACROCRYSTALS / Nitrofurantoin, Monohydrate (1 source) NITROFURANTOIN, MACROCRYSTALS / Nitrofurantoin, Monohydrate Drug Allergy 11-23-19 22 GI Upset, Anaphylaxis [facility] Work Phone: NSAIDs (2 sources) Ibuprofen Drug Allergy 03-22-20 06 GI Upset, Vomiting [facility] Opioid Agonists (1 source) Codeine Drug Allergy 08-24-19 06 GI Upset [facility] Work Phone: Proton Pump Inhibitors (2 sources) lansoprazole Drug Allergy 01-14-20 10 Diarrhea [facility] Quinolones (antibiotic) (1 source) Ciprofloxacin Drug Allergy 12-02-19 14 Other: See Comments [facility] shrimp allergenic extract (1 source) shrimp allergenic extract Drug Allergy 12-22-19 22 GI Upset [facility] Sucralfate (1 source) Sucralfate Drug Allergy 04-24-20 12 Other: See Comments [facility] Thiazolidinediones (glitazones) (2 sources) pioglitazone Drug Allergy 12-04-19 17 Swelling, Unknown [facility] Work Phone: (20 sources) Adhesive Tape; Translations: [ADHESIVE TAPE (ROSINS)] Propensity to adverse reactions to substance 08-31-19 09 Hives [facility] Work Phone: (20 sources) Aspirin; Translations: [ASPIRIN] Drug Allergy 04-16-20 18 Contraindicati on-Medical Surgical [facility] (20 sources) bacitracin / neomycin / polymyxin b; Translations: [NEOMYCIN-BACITRA STARLA-POLYMYXIN] Drug Allergy 08-31-19 09 Rash [facility] (20 sources) Ciprofloxacin; Translations: [CIPROFLOXACIN] Drug Allergy 12-02-19 14 Other: See Comments [facility] (20 sources) Codeine; Translations: [CODEINE] Drug Allergy 08-24-19 06 GI Upset [facility] Work Phone: (20 sources) Ibandronate; Translations: [IBANDRONATE] Drug Allergy 12-05-19 09 GI Upset [facility] (20 sources) Ibuprofen; Translations: [IBUPROFEN] Drug Allergy 03-22-20 06 GI Upset [facility] (20 sources) Iodine; Translations: [IODINE] Drug Allergy 08-25-19 09 Vomiting [facility] (20 sources) lansoprazole; Translations: [LANSOPRAZOLE] Drug Allergy 11-01-19 12 Diarrhea [facility] (20 sources) metFORMIN; Translations: [METFORMIN] Drug Allergy 05-10-20 11 Diarrhea [facility] Work Phone: (20 sources) nabumetone; Translations: [NABUMETONE] Drug Allergy 03-22-20 06 GI Upset, Vomiting [facility] Work Phone: (20 sources) NITROFURANTOIN, MACROCRYSTALS / Nitrofurantoin, Monohydrate; Translations: [NITROFURANTOIN MONOHYD/M-CRYST] Drug Allergy 11-23-19 22 GI Upset, Anaphylaxis [facility] Work Phone: (20 sources) pantoprazole; Translations: [PANTOPRAZOLE] Drug Allergy 01-14-20 10 Diarrhea [facility] (20 sources) pioglitazone; Translations: [PIOGLITAZONE HCL] Drug Allergy 12-04-19 17 Swelling [facility] Work Phone: (20 sources) Sucralfate; Translations: [SUCRALFATE] Drug Allergy 04-24-20 12 Other: See Comments [facility] (20 sources) shrimp allergenic extract; Translations: [SHRIMP] Drug Allergy 12-22-19 GI Upset [facility] (8 sources) Adhesive Tape; Translations: [adhesive tape] Allergy to substance 07-26-20 Hives/Rash [facility] (20 sources) Miconazole; Translations: [MICONAZOLE] Drug Allergy 12-30-19 Other: See Comments [facility] (20 sources) pioglitazone; Translations: [PIOGLITAZONE] Drug Allergy 12-30-19 Unknown [facility] (8 sources) Triiodobenzoic Acids; Translations: [IODINATED CONTRAST MEDIA] Propensity to adverse reactions 07-26-20 Vomiting [facility] (20 sources) Iodinated Contrast Media Drug Allergy 06-10-20 Vomiting [facility] Work Phone: (1 source) Ciprofloxacin Drug Allergy 04-01-20 [facility] Repository (1 source) Codeine Drug Allergy 04-01-20 [facility] Repository (1 source) Ibadronate Drug Allergy 04-01-20 [facility] Repository (1 source) Ibuprofen Drug Allergy 04-01-20 [facility] Repository (1 source) Iodine Drug Allergy 04-01-20 [facility] Repository (1 source) lansoprazole Drug Allergy 04-01-20 [facility] Repository (1 source) metFORMIN Drug Allergy 04-01-20 [facility] Repository (1 source) Miconazole Drug Allergy 04-01-20 [facility] Repository (1 source) nabumetone Drug Allergy 04-01-20 [facility] Repository (1 source) pantoprazole Drug Allergy 04-01-20 [facility] Repository (1 source) pioglitazone Drug Allergy 04-01-20 [facility] Repository (1 source) Shrimp product Drug allergy (disorder) 04-01-20 [facility] Repository (1 source) Sucralfate Drug Allergy 04-01-20 [facility] Repository (1 source) Iodinated Contrast Media Drug allergy (disorder) 07-10-20 [facility] Repository Medications Current Medications Medication Drug Class(es) Dates Sig (Normalized) Sig (Original) acetaminophen 500 mg oral tablet (1 source) Start: 06-20-2023 take 1000 mg by mouth every six hours as needed Acetaminophen Active 1000 MG PO EVERY 6 HOURS NEEDED 0 June 20, 2023 12:00am [id number] actuat albuterol 0.09 mg/actuat metered dose [...] Start: 03-13-2017 take 1000 [IU] by mo [facility] once daily Cholecalciferol (Vitamin D3) Active 1000 UNIT PO DAILY March 12, 2017 11:00pm Comment on above: Take 2 capsules by m [facility] once daily. collagen, bovine, 100 % powd [...] C docusate sodium 50 mg / sennosides, intermediate 8.6 mg oral tablet (1 source) Start: [...] on above: Take 1 capsule by mo [facility] DAILY (6 AM). Take 1 capsule by mo [facility] daily at 6 am. 24 hr fesoterodine [...] on above: Take 1 capsule by mo [facility] twice daily for 180 days. Morning and bedtime Take 1 capsule by mo [facility] two times a day for 180 days. [...] Comment on above: Take 1 tablet by [facility] twice daily for 10 days. 3 ml [...] is over 200. 10/21/2024 Active lactobacillus acidophilus [id number] unt oral capsule (20 sources) Start: 11-23-19 End: 03-18-20 take 1 capsule by mouth once daily Acidophilus-Bif Animalis 10 billion cell cap Take 1 capsule by mouth once daily. 90 capsule 3 03/18/2024 Active Comment on above: Take 1 capsule by [facility] once daily. LORazepam 1 mg oral tablet [...] long-term current use of insulin multivitamin-folic acid-biotin (DGPQ-RVRG-QOEIM, HS-VN-JBHNHE,) 400-2,000 mcg tab (20 sources) multivitamin-fol ic acid-biotin (NVPW-FEJR-MACZZ, HR-PQ-VVNUGB,) 400-2,000 mcg tab Take by mouth. Active multivitamin-fol ic acid-biotin (LPVP-VAJM-JOESK, ZT-RM-SZHBSA,) 400-2,000 mcg tab Take by mouth. 0 [...] right foot, initial encounter , Contusion of cheondoism region, initial encounter , Injury of coccyx, [...] right foot, initial encounter , Contusion of cheondoism region, initial encounter , Injury of coccyx, [...] mg by mouth once daily. estrogens, conjugated (intermediate) 0.625 mg/ml vaginal cream (20 sources) Estrogen [...] 1 tablet by joe th twice daily. Bqmxfckp-Fbn-Nlsvj Acid-Biotin (Hair,Skin And Nails(Fa-Biotin)) 66.7-1,000 mcg tablet (7 sources) Start: 03-15-20 End: 06-10-20 take 66.7-1000 ug by mouth once Ehiqbnks-Smk-Dnlob Acid-Biotin (Hair,Skin And Nails(Fa-Biotin)) 66.7-1,000 mcg tablet Discontinued TABLET PO March 14, 2021 11:00pm June 10, 2023 5:28pm Start: 03-15-2021 End: 06-10-2023 take 66.7-1000 ug by mouth once Sbfkeyoj-Bsb-Seboy Acid-Biotin (Hair,Skin And Nails(Fa-Biotin)) 66.7-1,000 mcg tablet Discontinued TABLET PO March 15, 2021 12:00am June 10, 2023 6:28pm Start: 03-15-2021 take 66.7-1000 ug by mouth once Oxmffwni-Voi-Eshyz Acid-Biotin (Hair,Skin And Nails(Fa-Biotin)) 66.7-1,000 mcg tablet [...] Comment on above: Take 1 capsule by [facility] twice daily for 180 days. prevision ardeds [...] on above: Take 1 tablet by joe th. at onset of headache. May take [...] (6 sources) Patient encounter status; Translations: [Other ad terminal makeup operator (current) drug therapy] Episodic Other aftercare (7 sources) Long-term current use of insulin; Translations: [intermediate designer (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] 03-03-2020 Episodic Other aftercare (2 sources) intermediate designer (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; Translations: [detention (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] Onset: 09-19-2024 Episodic [...] 04-18-2019 Episodic Other aftercare (1 source) Other ad terminal makeup operator (current) drug therapy; Translations: [Other ad terminal makeup operator (current) drug therapy] Onset: 5 Episodic Other [...] Reference Range Facility MR/PAT.ANEon 04-03-2025 MR/PAT.ANE Normal [facility] 12 Lead EKGon 08-21-2025 12 Lead EKG [facility] MR/PAT.ANEon 04-02-2025 MR/PAT.ANE Normal [facility] Basic Metabolic Profile (BMP )on 04-01-2025 BUN/CRE 27.9 RATIO High - [facility] Comment on above: Performed By: #### L 100.0500, L500.2500 ####[facility] [address] [place], [address] Calcium [Mass/Vol] 9.3 mg/dL Normal 7.6-11.0 [facility] Comment on above: Performed By: #### L 100.0500, L500.2500 ####[facility] [address] [place], [address] Chloride [Moles/Vol] 104 mmol/L Normal 98-108 [facility] Comment on above: Performed By: #### L 100.0500, L500.2500 ####[facility] [address] [place], [address] CO2 [Moles/Vol] 26.5 mmol/L Normal 21.0-32.0 [facility] Comment on above: Performed By: #### L 100.0500, L500.2500 ####[facility] [address] [place], [address] Creatinine [Mass/Vol] 0.61 mg/dL Low 0.70-1.20 [facility] Comment on above: Performed By: #### L 100.0500, L500.2500 ####[facility] [address] [place], [address] GAP 12 Normal -15 [facility] Comment on above: Performed By: #### L 100.0500, L500.2500 ####[facility] [address] [place], [address] GFR/1.73 sq M.predicted among non-blacks MDRD (S/P/Bld) [Vol rate/Area] 89 mL/min/{1.73_m2} Normal >60 [facility] Comment on above: Result Comment: mL/m in/1.73m2 CKD-EPI Creatinine Equation (2020) Performed By: #### L 100.0500, L500.2500 ####[facility] [address] [place], [address] Glucose [Mass/Vol] 110 mg/dL High 70-99 [facility] Comment on above: Performed By: #### L 100.0500, L500.2500 ####[facility] [address] [place], [address] Potassium [Moles/Vol] 4.0 mmol/L Normal 3.3-5.1 [facility] Comment on above: Performed By: #### L 100.0500, L500.2500 ####[facility] [address] [place], [address] Sodium [Moles/Vol] 142 mmol/L Normal 133-145 [facility] Comment on above: Performed By: #### L 100.0500, L500.2500 ####[facility] [address] [place], [address] Urea nitrogen [Mass/Vol] 17 mg/dL Normal 4-19 [facility] Comment on above: Performed By: #### L 100.0500, L500.2500 ####[facility] [address] [place], [address] CBC-Complete Blood Cnt No Di ffon 04-01-2025 Erythrocyte distribution width (RBC) [Ratio] 12.9 % Normal 11.6-14.6 [facility] Comment on above: Performed By: #### L 100.0500, L500.2500 ####[facility] [address] [place], [address] Hematocrit (Bld) [Volume fraction] 36.5 % Low 37-47 [facility] Comment on above: Performed By: #### L 100.0500, L500.2500 ####[facility] [address] [place], [address] Hemoglobin (Bld) [Mass/Vol] 12.3 g/dL Normal 12.0-15.0 [facility] Comment on above: Performed By: #### L 100.0500, L500.2500 ####[facility] [address] [place], [address] MCH (RBC) [Entitic mass] 30.8 pg Normal 27.0-32.0 [facility] Comment on above: Performed By: #### L 100.0500, L500.2500 ####[facility] [address] [place], [address] MCHC (RBC) [Mass/Vol] 33.7 g/dL Normal 32-36 [facility] Comment on above: Performed By: #### L 100.0500, L500.2500 ####[facility] [address] [place], [address] MCV (RBC) [Entitic vol] 91.3 fL Normal 81-99 [facility] Comment on above: Performed By: #### L 100.0500, L500.2500 ####[facility] [address] [place], [address] Platelet mean volume (Bld) [Entitic vol] 10.3 fL Normal 6.2-12.0 [facility] Comment on above: Performed By: #### L 100.0500, L500.2500 ####[facility] [address] [place], [address] Platelets (Bld) [#/Vol] 287 10*3/uL Normal 150-450 [facility] Comment on above: Performed By: #### L 100.0500, L500.2500 ####[facility] [address] [place], [address] RBC (Bld) [#/Vol] 4.00 10*6/uL Low 4.2-5.4 [facility] Comment on above: Performed By: #### L 100.0500, L500.2500 ####[facility] [address] [place], [address] RDW SD 42.3 fl Normal 35.1-43.9 [facility] Comment on above: Performed By: #### L 100.0500, L500.2500 ####[facility] [address] [place], [address] WBC (Bld) [#/Vol] 7.9 10*3/uL Normal 4.4-11.0 [facility] Comment on above: Performed By: #### L 100.0500, L500.2500 ####[facility] [address] [place], [address] Hemoglobin A1con 04-01-2025 HbA1c (Bld) [Mass fraction] 8.5 % High <=5.6 [facility] Comment on above: Result Comment: Norm al < 5.7 % Prediabetic 5.7 - 6.4 % Diabetic >or= 6.5 % Please note range changes. Performed By: #### L 501.9985, L500.3400, L300.3900, L300.4310 ####[facility] [address] [place], [address] Liver Profileon 04-01-2025 Albumin [Mass/Vol] 4.1 g/dL Normal 3.4-4.8 [facility] Comment on above: Performed By: #### L 501.9985, L500.3400, L300.3900, L300.4310 ####[facility] [address] [place], [address] ALK PHOS 114 U/L High 35-104 [facility] Comment on above: Performed By: #### L 501.9985, L500.3400, L300.3900, L300.4310 ####[facility] [address] [place], [address] ALT [Catalytic activity/Vol] 15 U/L Normal <=34 [facility] Comment on above: Performed By: #### L 501.9985, L500.3400, L300.3900, L300.4310 ####[facility] [address] [place], [address] AST [Catalytic activity/Vol] 18 U/L Normal <=31 [facility] Comment on above: Performed By: #### L 501.9985, L500.3400, L300.3900, L300.4310 ####[facility] [address] [place], [address] Bilirubin [Mass/Vol] 0.41 mg/dL Normal 0.00-1.30 [facility] Comment on above: Performed By: #### L 501.9985, L500.3400, L300.3900, L300.4310 ####[facility] [address] [place], [address] Bilirubin.direct [Mass/Vol] 0.19 mg/dL Normal 0.00-0.30 [facility] Comment on above: Performed By: #### L 501.9985, L500.3400, L300.3900, L300.4310 ####[facility] [address] [place], [address] Globulin (S) [Mass/Vol] 2.9 g/dL Normal 2.2-4.2 [facility] Comment on above: Performed By: #### L 501.9985, L500.3400, L300.3900, L300.4310 ####[facility] [address] [place], [address] T PROT 7.0 g/dL Normal 5.9-8.4 [facility] Comment on above: Performed By: #### L 501.9985, L500.3400, L300.3900, L300.4310 ####[facility] [address] [place], [address] MR/BMS.BUSon 04-01-2025 MR/BMS.BUS Normal [facility] Partial Thromboplast Timeon 04-01-2025 aPTT Coag (Bld) [Time] 25.4 s Normal 24.1-36.[address] [facility] Comment on above: Performed By: #### L 501.9985, L500.3400, L300.3900, L300.4310 ####[facility] [address] [place], [address] Prothrombin Time w/INRon INR Coag (PPP) [Relative time] 1.0 {INR} Normal [facility] Comment on above: Performed By: #### L 501.9985, L500.3400, L300.3900, L300.4310 ####[facility] [address] [place], [address] PT Coag (PPP) [Time] 13.3 s Normal 11.7-14.9 [facility] Comment on above: Performed By: #### L 501.9985, L500.3400, L300.3900, L300.4310 ####[facility] [address] [place], [address] Office Visit Reporton 2024 Office Visit Report Normal [facility] Neurology Visit Reporton Neurology Visit Report Normal [facility] Endocrinology Visit Reporton 02-19-2025 Endocrinology Visit Report Normal [facility] Office Visit Reporton 2024 Office Visit Report Normal [facility] Internal Medicine Office Vis iton 02-03-2025 Internal Medicine Office Visit Normal [facility] Office Visit Reporton 2024 Office Visit Report Normal [facility] MR/BMS.BPon 01-01-2025 MR/BMS.BP Normal [facility] CNPNon 12-18-2024 CNPN Telephone (INTMWS) DIANELYSHERIBERTOVINCENT Wheeler ([id number]) 1940 F Date Time Provider Department 12/18/24 ALICIA BLOUNT INTMWS During your visit today, we recorded the following information about you: Mansi Preston LPN 12/18/2024 11:26 AM Signed Shani from [facility] Home Health calling with plan of care [...] 12/29/2020 14 - Other: See Comments NEOSPORIN ([id number]-[id number]-GC* 2 - Rash Comments: blisters PIOGLITAZONE 12/29/2020 [...] Munguia refjere) Also has SSI. - Insulin Campbell, Disposable, (BD ULTRA-FINE FOZIA PEN NEEDLE) 32 [...] daily. For 30 days - multivitamin-folic acid-biotin (DWYY-ENLD-ULKHR, KR-WW-SURKOC,) 400-2,000 mcg tab Take by mouth. 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 Normal [facility] ANA IV[facility] ([id number]) 1940 F Date Time Provider Department 12/15/24 ALICIA BLOUNT During your visit today, we recorded the following information about you: Mansi Preston LPN 12/15/2024 11:27 AM Signed Shani from [facility] Home Health calling with OT plan of care, one visit this week. She will call back with new plan next week. No need for return call. Isabella Emerson APRN.DRIER ATTENDANT 12/15/2024 4:37 PM Signed Noted and agree. [...] 12/29/2020 14 - Other: See Comments NEOSPORIN (ABXNWVES-ELGTPDFGKD-SZ* 2 - Rash Comments: blisters PIOGLITAZONE 12/29/2020 [...] Munguia refjere) Also has SSI. - Insulin Campbell, Disposable, (BD ULTRA-FINE FOZIA PEN NEEDLE) 32 [...] daily. For 30 days - multivitamin-folic acid-biotin (QUQF-UGTU-DRFUB, BD-ST-IRHTAF,) 400-2,000 mcg tab Take by mouth. 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 [facility] Report[facility] 2024 Office Visit Report Normal [facility] Ribs Uni Min 3V w/PA Cheston 12-15-2024 Ribs Uni Min 3V w/PA Chest Normal [facility] Scapulaon 12-15-2024 Scapula Normal [facility] Internal Medicine Office Vis iton 12-12-2024 Internal Medicine Office Visit Normal [facility] CNPReena 12-10-2024 CNPN Telephone (INTWS) ANA IVORY ([id number]) 1940 F Date Time Provider Department 12/10/24 [...] call back unless pcp disagrees. Isabella Emerson APRN.DRIER ATTENDANT 12/10/2024 3:36 PM Signed Noted, agree. Allergies [...] 12/29/2020 14 - Other: See Comments NEOSPORIN (RNEKYFSO-QHSLQNFQYA-FE* 2 - Rash Comments: blisters PIOGLITAZONE 12/29/2020 16 - Unknown PROTONIX (PANTOPRAZOLE) 01/13/2010 6 - Diarrhea RELAFEN (NABUMETONE) 03/22/2006 8 - GI Upset 11 - Vomiting SHRIMP 12/21/2021 8 - GI Upset ACTOS (PIOGLITAZONE HCL) 12/03/2016 7 - Swelling Date Reviewed: 07/15/2024 Reviewed by: Edwige Reyes LPN - Fully Assessed Reason for Visit: Delay of care- OT [facility] [Other] Prescriptions as of 12/11/2024 - [...] Munguia refjere) Also has SSI. - Insulin Campbell, Disposable, (BD ULTRA-FINE FOZIA PEN NEEDLE) 32 [...] daily. For 30 days - multivitamin-folic acid-biotin (WTPL-OXXI-JKHUS, XR-ZJ-XDQMOW,) 400-2,000 mcg tab Take by mouth. - [...] Diabetes mellitus (more content not included)... Normal [facility] Basic Metabolic Profile (BMP )on 12-08-2024 BUN/CRE 16.5 RATIO Normal 10-20 [facility] Comment on above: Performed By: #### L 500.2500, L100.0100 ####[facility] [address] [place], [address] Calcium [Mass/Vol] 10.1 mg/dL Normal 7.6-11.0 [facility] Comment on above: Performed By: #### L 500.2500, L100.0100 ####[facility] [address], [address] Chloride [Moles/Vol] 106 mmol/L Normal 98-108 [facility] Comment on above: Performed By: #### L 500.2500, L100.0100 ####[facility] [address] [place], [address] CO2 [Moles/Vol] 21.2 mmol/L Normal 21.0-32.0 [facility] Comment on above: Performed By: #### L 500.2500, L100.0100 ####[facility] [address] [place], [address] Creatinine [Mass/Vol] 1.35 mg/dL High 0.70-1.20 [facility] Comment on above: Performed By: #### L 500.2500, L100.0100 ####[facility] [address] [place], [address] GAP 12 Normal 5-15 [facility] Comment on above: Performed By: #### L 500.2500, L100.0100 ####[facility] [address] [place], [address] GFR/1.73 sq M.predicted among non-blacks MDRD (S/P/Bld) [Vol rate/Area] 39 mL/min/{1.73_m2} Low >60 [facility] Comment on above: Result Comment: mL/m in/1.73m2 CKD-EPI Creatinine Equation (2020) Performed By: #### L 500.2500, L100.0100 ####[facility] [address] [place], [address] Glucose [Mass/Vol] 99 mg/dL Normal 70-99 [facility] Comment on above: Performed By: #### L 500.2500, L100.0100 ####[facility] [address] [place], [address] Potassium [Moles/Vol] 3.9 mmol/L Normal 3.3-5.1 [facility] Comment on above: Performed By: #### L 500.2500, L100.0100 ####[facility] [address] [place], [address] Sodium [Moles/Vol] 140 mmol/L Normal 133-145 [facility] Comment on above: Performed By: #### L 500.2500, L100.0100 ####[facility] [address] [place], [address] Urea nitrogen [Mass/Vol] 22 mg/dL High 4-19 [facility] Comment on above: Performed By: #### L 500.2500, L100.0100 ####[facility] [address] [place], [address] CBC W/Diff, Automatedon 11-12 Absolute Lymph 1.28 X10 3/uL Normal 0.83-4.51 [facility] Comment on above: Performed By: #### L 500.2500, L100.0100 ####[facility] [address] [place], [address] Absolute Neut 4.6 X10 3/uL Normal 2.0-7.7 [facility] Comment on above: Performed By: #### L 500.2500, L100.0100 ####[facility] [address] [place], [address] Basophils/100 WBC (Bld) 0.9 % Normal 0-1 [facility] Comment on above: Performed By: #### L 500.2500, L100.0100 ####[facility] [address] [place], [address] Eosinophils/100 WBC (Bld) 4.1 % Normal 0-5 [facility] Comment on above: Performed By: #### L 500.2500, L100.0100 ####[facility] [address] [place], [address] Erythrocyte distribution width (RBC) [Ratio] 12.8 % Normal 11.6-14.6 [facility] Comment on above: Performed By: #### L 500.2500, L100.0100 ####[facility] [address] [place], [address] Hematocrit (Bld) [Volume fraction] 37.9 % Normal 37-47 [facility] Comment on above: Performed By: #### L 500.2500, L100.0100 ####[facility] [address] [place], [address] Hemoglobin (Bld) [Mass/Vol] 12.5 g/dL Normal 12.0-15.0 [facility] Comment on above: Performed By: #### L 500.2500, L100.0100 ####[facility] [address] [place], [address] IG% 0.300 Normal 0.0-0.9 [facility] Comment on above: Result Comment: IG% - Immature Granulocytes (promyelocytes, myelocytes andmetamyelocytes) > 1% indicates that a LEFT SHIFT is Present. Performed By: #### L 500.2500, L100.0100 ####[facility] [address] [place], [address] Lymphocytes/100 WBC (Bld) 18.9 % Low 19-41 [facility] Comment on above: Performed By: #### L 500.2500, L100.0100 ####[facility] [address] [place], [address] MCH (RBC) [Entitic mass] 31.8 pg Normal 27.0-32.0 [facility] Comment on above: Performed By: #### L 500.2500, L100.0100 ####[facility] [address] [place], [address] MCHC (RBC) [Mass/Vol] 33.0 g/dL Normal 32-36 [facility] Comment on above: Performed By: #### L 500.2500, L100.0100 ####[facility] [address] [place], [address] MCV (RBC) [Entitic vol] 96.4 fL Normal 81-99 [facility] Comment on above: Performed By: #### L 500.2500, L100.0100 ####[facility] [address] [place], [address] Monocytes/100 WBC (Bld) 8.5 % Normal 0-10 [facility] Comment on above: Performed By: #### L 500.2500, L100.0100 ####[facility] [address] [place], [address] Neutrophils/100 WBC (Bld) 67.3 % Normal 47-70 [facility] Comment on above: Performed By: #### L 500.2500, L100.0100 ####[facility] [address] [place], [address] Nucleated RBC (Bld) [#/Vol] 0 10*3/uL Normal 0-5 [facility] Comment on above: Performed By: #### L 500.2500, L100.0100 ####[facility] [address] [place], [address] Platelet mean volume (Bld) [Entitic vol] 12.6 fL High 6.2-12.0 [facility] Comment on above: Performed By: #### L 500.2500, L100.0100 ####[facility] [address] [place], [address] Platelets (Bld) [#/Vol] 155 10*3/uL Normal 150-450 [facility] Comment on above: Performed By: #### L 500.2500, L100.0100 ####[facility] [address] [place], [address] RBC (Bld) [#/Vol] 3.93 10*6/uL Low 4.2-5.4 [facility] Comment on above: Performed By: #### L 500.2500, L100.0100 ####[facility] [address] [place], [address] RDW SD 46.1 fl High 35.1-43.9 [facility] Comment on above: Performed By: #### L 500.2500, L100.0100 ####[facility] [address] [place], [address] WBC (Bld) [#/Vol] 6.8 10*3/uL Normal 4.4-11.0 [facility] Comment on above: Performed By: #### L 500.2500, L100.0100 ####[facility] [address] [place], [address] CNPNon 11-19-2024 [facility] Telephone (INTMWS) ANA IVORY ([id number]) 1940 F Date Time Provider Department 11/19/24 ALICIA BLOUNT INTWS During your visit today, we recorded the following information about you: Coby Reynolds RN 11/19/2024 10:59 AM Signed Shani STEWART calling from [facility] to report plan of care for [...] back needed unless questions MANNY Murray Terri, APRN.DRUPAL PHP DEVELOPER 11/20/2024 10:00 AM Signed Noted, [place] Allergies [...] 12/29/2020 14 - Other: See Comments NEOSPORIN (MVOLCOZN-AGDPORZMAM-EW* 2 - Rash Comments: blisters PIOGLITAZONE 12/29/2020 [...] Munguia refills) Also has SSI. - Insulin Campbell, Disposable, (BD ULTRA-FINE FOZIA PEN NEEDLE) 32 [...] daily. For 30 days - multivitamin-folic acid-biotin (MJQO-OGHF-MAZLR, VB-PX-WVZIVS,) 400-2,000 mcg tab Take by mouth. - collagen, bovine, 100 % powd Apply to affected area. - Cranberry-Vitamin C-Vitamin E (CRANBERRY PLUS VITAMIN C) 140-100 mg cap Patient takes Cranberry with Vitamin C capsule that contains 15,000 mg Cranberry and 100mg V (more content not included)... Normal [facility] Neurology Visit Reporton Neurology Visit Report Normal [facility] C-Peptideon 11-05-2024 C PEPTIDE 1.0 ng/mL Low 1.1-4.4 [facility] Comment on above: Result Comment: C-Pe ptide reference interval is for fasting patients.Performed at: [employer] [id number] Director: Marco Antonio Diaz PhD, Phone: [phone] Performed By: #### L 501.0100, L500.4100, L3100.7750 ####[facility] [address] [place], [address] Glucoseon 11-03-2024 Glucose [Mass/Vol] 151 mg/dL High 70-99 [facility] Comment on above: Performed By: #### L 501.0100, L500.4100, L3100.7750 ####[facility] [address] [place], [address] Lipid Profileon 11-03-2024 CHOL:HDL 3.54 Normal [facility] Comment on above: Performed By: #### L 501.0100, L500.4100, L3100.7750 ####[facility] [address] [place], [address] Cholesterol [Mass/Vol] 157 mg/dL Normal <=[address] [facility] Comment on above: Result Comment: Chol esterol level, Desirable <200 mg/dLBorderline high cholesterol 200-239 mg/dLHigh cholesterol >=240 mg/dLRecommendations of the NCEP Adult Treatment Panel for thefollowing risk-cutoff thresholds for the [place] Americanpulation. Performed By: #### L 501.0100, L500.4100, L3100.7750 ####[facility] [address] [place], [address] Cholesterol in HDL [Mass/Vol] 44 mg/dL Normal [facility] Comment on above: Result Comment: Jayda onal Cholesterol Education Program (NCEP) guidelines:<40 mg/dL: Low HDL-cholesterol (major risk factor for CHD)>= 60 mg/dL: High HDL-cholesterol (negative risk factor forCHD)HDL-cholesterol is affected by a number of factors, e.g.smoking, exercise, hormones, sex and age. Performed By: #### L 501.0100, L500.4100, L3100.7750 ####[facility] [address] [place], [address] Cholesterol in LDL [Mass/Vol] 74 mg/dL Normal [facility] Comment on above: Result Comment: Bord nnrukg=740-361 mg/dL Higher Txjw=196 mg/dL or greater Performed By: #### L 501.0100, L500.4100, L3100.7750 ####[facility] [address] [place], [address] Cholesterol in VLDL [Mass/Vol] 39 mg/dL Normal 5-40 [facility] Comment on above: Performed By: #### L 501.0100, L500.4100, L3100.7750 ####[facility] [address] [place], [address] Triglyceride [Mass/Vol] 196 mg/dL Normal [facility] Comment on above: Result Comment: The drugs N-Acetylcysteine and Metamizole may falselydepress this assay.Normal range: <150 mg/dLBorderline High: 150-199 mg/dLHigh: 200-499 mg/dLVery High: >500 mg/dL Performed By: #### L 501.0100, L500.4100, L3100.7750 ####[facility] [address] [place], [address] Thyroid Stim Hormone (TSH)on 11-03-2024 TSH 3.160 uIU/mL Normal 0.300-4.20 0 [facility] Comment on above: Performed By: #### L 501.9520 ####[facility] [address] [place], [address] Internal Medicine Office Vis iton 11-02-2024 Internal Medicine Office Visit Normal [facility] Basic Metabolic Profile (BMP )on 10-27-2024 BUN Normal 7-18 [facility] Comment on above: Result Comment: Canc elled via OM: Order cancelled - Patient discharged Performed By: #### L 500.2500, L100.0100 ####[facility] [address] [place], [address] BUN/CRE Normal 10-20 [facility] Comment on above: Result Comment: Canc elled via OM: Order cancelled - Patient discharged Performed By: #### L 500.2500, L100.0100 ####[facility] [address] [place], [address] Calcium Normal 8.5-10.1 [facility] Comment on above: Result Comment: Canc elled via OM: Order cancelled - Patient discharged Performed By: #### L 500.2500, L100.0100 ####[facility] [address] [place], [address] CL Normal 98-107 [facility] Comment on above: Result Comment: Canc elled via OM: Order cancelled - Patient discharged Performed By: #### L 500.2500, L100.0100 ####[facility] [address] [place], [address] CO2 Normal 21.0-32.0 [facility] Comment on above: Result Comment: Canc elled via OM: Order cancelled - Patient discharged Performed By: #### L 500.2500, L100.0100 ####[facility] [address] [place], [address] CREAT,SERUM Normal 0.55-1.02 [facility] Comment on above: Result Comment: Canc elled via OM: Order cancelled - Patient discharged Performed By: #### L 500.2500, L100.0100 ####[facility] [address] [place], [address] eGFR Normal >60 [facility] Comment on above: Result Comment: Canc elled via OM: Order cancelled - Patient discharged Performed By: #### L 500.2500, L100.0100 ####[facility] [address] [place], [address] EST GFR - AA Normal >60 [facility] Comment on above: Result Comment: Canc elled via OM: Order cancelled - Patient discharged Performed By: #### L 500.2500, L100.0100 ####[facility] [address] [place], [address] GAP Normal 5-15 [facility] Comment on above: Result Comment: Canc elled via OM: Order cancelled - Patient discharged Performed By: #### L 500.2500, L100.0100 ####[facility] [address] [place], [address] GLU Normal 74-106 [facility] Comment on above: Result Comment: Canc elled via OM: Order cancelled - Patient discharged Performed By: #### L 500.2500, L100.0100 ####[facility] [address] [place], [address] Potassium Normal 3.5-5.1 [facility] Comment on above: Result Comment: Canc elled via OM: Order cancelled - Patient discharged Performed By: #### L 500.2500, L100.0100 ####[facility] [address] [place], [address] Basic Metabolic Profile (BMP) Normal 136-145 [facility] Comment on above: Result Comment: Canc elled via OM: Order cancelled - Patient discharged Performed By: #### L 500.2500, L100.0100 ####[facility] [address] [place], [address] CBC W/Diff, Automatedon - Absolute Neut Normal 2.0-7.7 [facility] Comment on above: Result Comment: Canc elled via OM: Order cancelled - Patient discharged Performed By: #### L 500.2500, L100.0100 ####[facility] [address] [place], [address] HCT Normal 37-47 [facility] Comment on above: Result Comment: Canc elled via OM: Order cancelled - Patient discharged Performed By: #### L 500.2500, L100.0100 ####[facility] [address] [place], [address] HGB Normal 12.0-15.0 [facility] Comment on above: Result Comment: Canc elled via OM: Order cancelled - Patient discharged Performed By: #### L 500.2500, L100.0100 ####[facility] [address] [place], [address] MCH Normal 27.0-32.0 [facility] Comment on above: Result Comment: Canc elled via OM: Order cancelled - Patient discharged Performed By: #### L 500.2500, L100.0100 ####[facility] [address] [place], [address] MCHC Normal 32-36 [facility] Comment on above: Result Comment: Canc elled via OM: Order cancelled - Patient discharged Performed By: #### L 500.2500, L100.0100 ####[facility] [address] [place], [address] MCV Normal 81-99 [facility] Comment on above: Result Comment: Canc elled via OM: Order cancelled - Patient discharged Performed By: #### L 500.2500, L100.0100 ####[facility] [address] [place], [address] NEUT% Normal 47-70 [facility] Comment on above: Result Comment: Canc elled via OM: Order cancelled - Patient discharged Performed By: #### L 500.2500, L100.0100 ####[facility] [address] [place], [address] PLT Normal 150-450 [facility] Comment on above: Result Comment: Canc elled via OM: Order cancelled - Patient discharged Performed By: #### L 500.2500, L100.0100 ####[facility] [address] [place], [address] RBC Normal 4.2-5.4 [facility] Comment on above: Result Comment: Canc elled via OM: Order cancelled - Patient discharged Performed By: #### L 500.2500, L100.0100 ####[facility] [address] [place], [address] RDW CV Normal 11.6-14.6 [facility] Comment on above: Result Comment: Canc elled via OM: Order cancelled - Patient discharged Performed By: #### L 500.2500, L100.0100 ####[facility] [address] [place], [address] RDW SD Normal 35.1-43.9 [facility] Comment on above: Result Comment: Canc elled via OM: Order cancelled - Patient discharged Performed By: #### L 500.2500, L100.0100 ####[facility] [address] [place], [address] WBC Normal 4.4-11.0 [facility] Comment on above: Result Comment: Canc elled via OM: Order cancelled - Patient discharged Performed By: #### L 500.2500, L100.0100 ####[facility] [address] [place], [address] CNPNon 10-27-2024 CNPN Telephone (INTMWS) ANA IVORY ([id number]) 1940 F Date Time Provider Department 10/27/24 ALICIA BLOUNT INTMWS During your visit today, we recorded the following information about you: Mansi Preston LPN 10/27/2024 9:43 AM Signed Steph from [facility] Home Health calling she was the card tape converter operator nurse this weekend and was called by the patient daughter Sunday. Daughter said she had not given her mother the macrobid rx for 4 days, she did not know she was to continue taking the medication. Nurse had called Dr circulation sales representative Sunday and was told patient to continue [...] latex allergy ASPIRIN 04/16/2018 15 - Contraindication-Medical Dagile* Comments: [...] 12/29/2020 14 - Other: See Comments NEOSPORIN (BXEDXDVW-TCFGZHTUYR-MA* 2 - Rash Comments: blisters PIOGLITAZONE 12/29/2020 [...] Munguia refills) Also has SSI. - Insulin Campbell, Disposable, (BD ULTRA-FINE FOZIA PEN NEEDLE) 32 [...] by mouth (more content not included)... [facility] ERIKHERIBERTO LOWEVINCENT Wheeler ([id number]) 1940 F Date Time Provider Department 10/27/24 ALICIA BLOUNT During your visit today, we recorded the following information about you: Eris Keene, RN 10/27/2024 1:28 PM Signed Shani- OT- [facility]- phoned with OT update POC: will [...] 12/29/2020 14 - Other: See Comments NEOSPORIN (FHMGMIXZ-MDQCGMTQKD-YN* 2 - Rash Comments: blisters PIOGLITAZONE 12/29/2020 16 - Unknown PROTONIX (PANTOPRAZOLE) 01/13/2010 6 - Diarrhea RELAFEN (NABUMETONE) 03/22/2006 8 - GI Upset 11 - Vomiting SHRIMP 12/21/2021 8 - GI Upset ACTOS (PIOGLITAZONE HCL) 12/03/2016 7 - Swelling Date Reviewed: 07/15/2024 Reviewed by: Edwige Reyes LPN - Fully Assessed Reason for Visit: [facility] OT updated POC [Other] Prescriptions as [...] Munguia refjere) Also has SSI. - Insulin Campbell, Disposable, (BD ULTRA-FINE FOZIA PEN NEEDLE) 32 [...] daily. For 30 days - multivitamin-folic acid-biotin (GOJS-DSXU-UWQTX, KJ-GB-GMLATA,) 400-2,000 mcg tab Take by mouth. 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 Normal [facility] [place] 10-25-2024 [facility] Telephone (FMIUNI) ANA IVORY ([id number]) 1940 F Date Time Provider Department 10/25/24 LIGIA SCHILLING IUNI During your visit today, we recorded the following information about you: Ligia Schilling, 10/25/2024 3:06 PM Signed Received call from [facility] nurse regarding patient. Pt was discharged [...] 12/29/2020 14 - Other: See Comments NEOSPORIN (MUCXQCEI-BHWVUZHIRA-IF* 2 - Rash Comments: blisters PIOGLITAZONE 12/29/2020 [...] Munguia refills) Also has SSI. - Insulin Campbell, Disposable, (BD ULTRA-FINE FOZIA PEN NEEDLE) 32 [...] daily. For 30 days - multivitamin-folic acid-biotin (KDPV-VSGL-JXTUI, OQ-WX-NVZAYW,) 400-2,000 mcg tab Take by mouth. - [...] find 1500mcg (more content not included)... Normal [facility] 10-24-2024 [facility] Telephone (INTMWS) ANA IVORY ([id number]) 1940 F Date Time Provider Department 10/24/24 ALICIA BLOUNT INTWS During your visit today, we recorded the following information about you: Anne Rivera RN 10/24/2024 11:18 AM Signed Karina nurse with [facility] calls to let provider know that [...] of Macrobid? Karina requests call back at [phone]. Please review and advise, MANNY Griggs Liza [...] of Macrobid? Message left for Karina with [facility] to notify that patient should be taking [...] 12/29/2020 14 - Other: See Comments NEOSPORIN (MRLWNMUH-JCLIQXULFW-YF* 2 - Rash Comments: blisters PIOGLITAZONE 12/29/2020 [...] Munguia refjere) Also has SSI. - Insulin Campbell, Disposable, (BD ULTRA-FINE FOZIA PEN NEEDLE) 32 gauge x 5/32 Use one needle for each dose, 4 times daily. 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 - Pyridoxine HC (more content not included)... Normal [facility] ANA IV[facility] ([id number]) 1940 F Date Time Provider Department 10/23/24 ALICIA BLOUNT INTMWS During your visit today, we recorded the following information about you: Mansi Preston LPN 10/23/2024 4:22 PM Signed Rhina from [facility] Home Health calling she has completed patient ST eval and plan to work on swallowing therapy, 2 visits weekly for 2 weeks. No need to return call. Isabella Emerson APRN.DRIER ATTENDANT 10/24/2024 7:23 AM Signed Noted. Allergies As [...] 12/29/2020 14 - Other: See Comments NEOSPORIN (WOZVQSBQ-AIUWCBHLFF-CD* 2 - Rash Comments: blisters PIOGLITAZONE 12/29/2020 [...] Munguia refjere) Also has SSI. - Insulin Campbell, Disposable, (BD ULTRA-FINE FOZIA PEN NEEDLE) 32 [...] daily. For 30 days - multivitamin-folic acid-biotin (NBZT-FPDD-JPXMO, EF-BI-RXECMW,) 400-2,000 mcg tab Take by mouth. - [...] use of (more content not included)... Normal [facility] Basic Metabolic Profile (BMP )on 10-20-2024 BUN Normal -18 [facility] Comment on above: Result Comment: Canc elled via OM: Order cancelled - Patient discharged Performed By: #### L 100.0100, L500.2500 ####[facility] [address] [place], [address] BUN/CRE Normal 10-20 [facility] Comment on above: Result Comment: Canc elled via OM: Order cancelled - Patient discharged Performed By: #### L 100.0100, L500.2500 ####[facility] [address] [place], [address] Calcium Normal 8.5-10.1 [facility] Comment on above: Result Comment: Canc elled via OM: Order cancelled - Patient discharged Performed By: #### L 100.0100, L500.2500 ####[facility] [address] [place], [address] CL Normal 98-107 [facility] Comment on above: Result Comment: Canc elled via OM: Order cancelled - Patient discharged Performed By: #### L 100.0100, L500.2500 ####[facility] [address] [place], [address] CO2 Normal 21.0-32.0 [facility] Comment on above: Result Comment: Canc elled via OM: Order cancelled - Patient discharged Performed By: #### L 100.0100, L500.2500 ####[facility] [address] [place], [address] CREAT,SERUM Normal 0.55-1.02 [facility] Comment on above: Result Comment: Canc elled via OM: Order cancelled - Patient discharged Performed By: #### L 100.0100, L500.2500 ####[facility] [address] [place], [address] eGFR Normal >60 [facility] Comment on above: Result Comment: Canc elled via OM: Order cancelled - Patient discharged Performed By: #### L 100.0100, L500.2500 ####[facility] [address] [place], [address] EST GFR - AA Normal >60 [facility] Comment on above: Result Comment: Canc elled via OM: Order cancelled - Patient discharged Performed By: #### L 100.0100, L500.2500 ####[facility] [address] [place], [address] GAP Normal 5-15 [facility] Comment on above: Result Comment: Canc elled via OM: Order cancelled - Patient discharged Performed By: #### L 100.0100, L500.2500 ####[facility] [address] [place], [address] GLU Normal 74-106 [facility] Comment on above: Result Comment: Canc elled via OM: Order cancelled - Patient discharged Performed By: #### L 100.0100, L500.2500 ####[facility] [address] [place], [address] Potassium Normal 3.5-5.1 [facility] Comment on above: Result Comment: Canc elled via OM: Order cancelled - Patient discharged Performed By: #### L 100.0100, L500.2500 ####[facility] [address] [place], [address] Basic Metabolic Profile (BMP) Normal 136-145 [facility] Comment on above: Result Comment: Canc elled via OM: Order cancelled - Patient discharged Performed By: #### L 100.0100, L500.2500 ####[facility] [address] [place], [address] CBC W/Diff, Automatedon 03- 0-2024 Absolute Neut Normal 2.0-7.7 [facility] Comment on above: Result Comment: Canc elled via OM: Order cancelled - Patient discharged Performed By: #### L 100.0100, L500.2500 ####[facility] [address] [place], [address] HCT Normal 37-47 [facility] Comment on above: Result Comment: Canc elled via OM: Order cancelled - Patient discharged Performed By: #### L 100.0100, L500.2500 ####[facility] [address] [place], [address] HGB Normal 12.0-15.0 [facility] Comment on above: Result Comment: Canc elled via OM: Order cancelled - Patient discharged Performed By: #### L 100.0100, L500.2500 ####[facility] [address] [place], [address] MCH Normal 27.0-32.0 [facility] Comment on above: Result Comment: Canc elled via OM: Order cancelled - Patient discharged Performed By: #### L 100.0100, L500.2500 ####[facility] [address] [place], [address] MCHC Normal 32-36 [facility] Comment on above: Result Comment: Canc elled via OM: Order cancelled - Patient discharged Performed By: #### L 100.0100, L500.2500 ####[facility] [address] [place], [address] MCV Normal 81-99 [facility] Comment on above: Result Comment: Canc elled via OM: Order cancelled - Patient discharged Performed By: #### L 100.0100, L500.2500 ####[facility] [address] [place], [address] NEUT% Normal 47-70 [facility] Comment on above: Result Comment: Canc elled via OM: Order cancelled - Patient discharged Performed By: #### L 100.0100, L500.2500 ####[facility] [address] [place], [address] PLT Normal 150-450 [facility] Comment on above: Result Comment: Canc elled via OM: Order cancelled - Patient discharged Performed By: #### L 100.0100, L500.2500 ####[facility] [address] [place], [address] RBC Normal 4.2-5.4 [facility] Comment on above: Result Comment: Canc elled via OM: Order cancelled - Patient discharged Performed By: #### L 100.0100, L500.2500 ####[facility] [address] [place], [address] RDW CV Normal 11.6-14.6 [facility] Comment on above: Result Comment: Canc elled via OM: Order cancelled - Patient discharged Performed By: #### L 100.0100, L500.2500 ####[facility] [address] [place], [address] RDW SD Normal 35.1-43.9 [facility] Comment on above: Result Comment: Canc elled via OM: Order cancelled - Patient discharged Performed By: #### L 100.0100, L500.2500 ####[facility] [address] [place], [address] WBC Normal 4.4-11.0 [facility] Comment on above: Result Comment: Canc elled via OM: Order cancelled - Patient discharged Performed By: #### L 100.0100, L500.2500 ####[facility] [address] [place], [address] CNPNon 10-20-2024 [facility] Telephone (INTMWS) ANA IVORY ([id number]) 1940 F Date Time Provider Department 10/20/24 ALICIA BLOUNT INTWS During your visit today, we recorded the following information about you: Judith Renteria RN 10/20/2024 4:02 PM Signed Hardik [facility] POC on Pt and reports they [...] 12/29/2020 14 - Other: See Comments NEOSPORIN (CQGHIYSH-DTZPRNTYOO-SL* 2 - Rash Comments: blisters PIOGLITAZONE 12/29/2020 16 - Unknown PROTONIX (PANTOPRAZOLE) 01/13/2010 6 - Diarrhea RELAFEN (NABUMETONE) 03/22/2006 8 - GI Upset 11 - Vomiting SHRIMP 12/21/2021 8 - GI Upset ACTOS (PIOGLITAZONE HCL) 12/03/2016 7 - Swelling Date Reviewed: 07/15/2024 Reviewed by: Edwige Reyes LPN - Fully Assessed Reason for Visit: Home Health Point of Care Results [3532] Order(s):insulin 75/25 lispro protamine-lispro units/mL (HUMALOG MIX 75-25,U-100,INSULN) 100 units/mL crxnapwska22 units TID and a sliding scale s-- [...] Units daily (more content not included)... Normal [facility] Endocrinology Visit Reporton 10-20-2024 Endocrinology Visit Report Normal [facility] Urine Cultureon 10-19-2024 [facility] Yeast, not Shanna a lbicans [place] Count 50,000-80,000 Normal [facility] Comment on above: Performed By: #### L 400.0001, M100.2200 ####[facility] [address] [place], [place], [address] Bedside Glucoseon 10-17-2024 FINGERSTICK GLU 380 mg/dL High 74-106 [facility] Comment on above: Result Comment: OLGA GEMENT OF PATIENT CARE PER NURSING PROTOCOL Performed By: #### L 501.080 ####[facility] [address] [place], [address] FINGERSTICK GLU 178 mg/dL High 74-106 [facility] Comment on above: Result Comment: OLGA GEMENT OF PATIENT CARE PER NURSING PROTOCOL Performed By: #### L 501.080 ####[facility] [address] [place], [address] [place] 10-17-2024 [facility] Telephone (INTMWS) ANA IVORY ([id number]) 1940 F Date Time Provider Department 10/17/24 ALICIA BLOUNT INTMWS During your visit today, we recorded the following information about you: Judith Renteria RN 10/17/2024 2:59 PM Signed [facility] called in and reports Pt was D/Chuck [...] Called and left a detailed voicemail notifying [facility] of providers message. Clinic phone number was [...] 12/29/2020 14 - Other: See Comments NEOSPORIN (DRHKLERV-TUAEOPPQPS-QU* 2 - Rash Comments: blisters PIOGLITAZONE 12/29/2020 [...] at bedtime. (Dr. Genny funes) - Insulin Campbell, Disposable, (BD ULTRA-FINE FOZIA PEN NEEDLE) 32 [...] daily. For 30 days - multivitamin-folic acid-biotin (FLLW-XOWX-JFDEC, LL-RO-ZAHNYF,) 400-2,000 mcg tab Take by mouth. - collagen, bovine, 100 % powd Apply to affected area. - Cranberry-Vitamin C-Vitamin E (CRANBERRY PLUS VITAMIN C) 140-100 mg cap Patient takes Cranberry with Vitamin C capsule that contains 15,000 mg Cranberry and 100mg Vitamin C - Biotin 2,500 mcg cap Nurse reports patient taking 150 (more content not included)... Normal [facility] Urinalysis, Completeon 10-17 AMORPHOUS 1+ URATE Normal [facility] Comment on above: Order Comment: KEYANA TER SPECIMEN Performed By: #### L 400.0001, M100.2200 ####[facility] [address] [place], [address] BACTERIA 2+ /hpf Normal None Seen [facility] Comment on above: Order Comment: KEYANA TER SPECIMEN Performed By: #### L 400.0001, M100.0 ####[facility] [address] [place], [address] EPI,SQUAMOUS 0-5 SEEN Normal 5-10 [facility] Comment on above: Order Comment: KEYANA TER SPECIMEN Performed By: #### L 400.0001, M100.2199 ####[facility] [address] [place], [address] RBC 0-5 SEEN Normal 0-5 [facility] Comment on above: Order Comment: KEYANA TER SPECIMEN Performed By: #### L 400.0001, M1.0 ####[facility] [address] [place], [address] WBC 50-100 SEEN Normal 0-5 [facility] Comment on above: Order Comment: KEYANA TER SPECIMEN Performed By: #### L 400.0001, .2199 ####[facility] [address] [place], [address] Bedside Glucoseon 10-16-2024 FINGERSTICK GLU 306 mg/dL High 74-106 [facility] Comment on above: Result Comment: OLGA GEMENT OF PATIENT CARE PER NURSING PROTOCOL Performed By: #### L 501.080 ####[facility] [address] [place], [address] FINGERSTICK GLU 243 mg/dL High 74-106 [facility] Comment on above: Result Comment: OLGA GEMENT OF PATIENT CARE PER NURSING PROTOCOL Performed By: #### L 501.080 ####[facility] [address] [place], [address] FINGERSTICK GLU 373 mg/dL High 74-106 [facility] Comment on above: Result Comment: OLGA GEMENT OF PATIENT CARE PER NURSING PROTOCOL Performed By: #### L 501.080 ####[facility] [address] [place], [address] FINGERSTICK GLU 102 mg/dL Normal 74-106 [facility] Comment on above: Result Comment: OLGA GEMENT OF PATIENT CARE PER NURSING PROTOCOL Performed By: #### L 501.080 ####[facility] [address] [place], [address] FINGERSTICK GLU 83 mg/dL Normal 74-106 [facility] Comment on above: Result Comment: OLGA GEMENT OF PATIENT CARE PER NURSING PROTOCOL Performed By: #### L 501.080 ####[facility] [address] [place], [address] FINGERSTICK GLU 155 mg/dL High 74-106 [facility] Comment on above: Result Comment: OLGA GEMENT OF PATIENT CARE PER NURSING PROTOCOL Performed By: #### L 501.080 ####[facility] [address] [place], [address] Urinalysis, Completeon 10-16 Mucus Ql (Urine sed) 0 SEEN Normal [facility] Comment on above: Order Comment: [facility] SPECIMEN Performed By: #### L 400.0001, M100.2200 ####[facility] [address] [place], [address] Bedside Glucoseon 10-15-2024 FINGERSTICK GLU 259 mg/dL High -106 [facility] Comment on above: Result Comment: OLGA GEMENT OF PATIENT CARE PER NURSING PROTOCOL Performed By: #### L 501.080 ####[facility] [address] [place], [address] FINGERSTICK GLU 219 mg/dL High -106 [facility] Comment on above: Result Comment: OLGA GEMENT OF PATIENT CARE PER NURSING PROTOCOL Performed By: #### L 501.080 ####[facility] [address] [place], [address] FINGERSTICK GLU 241 mg/dL High 74-106 [facility] Comment on above: Result Comment: OLGA GEMENT OF PATIENT CARE PER NURSING PROTOCOL Performed By: #### L 501.080 ####[facility] [address] [place], [address] FINGERSTICK GLU 76 mg/dL Normal 74-106 [facility] Comment on above: Result Comment: OLGA GEMENT OF PATIENT CARE PER NURSING PROTOCOL Performed By: #### L 501.080 ####[facility] [address] [place], [address] Bedside Glucoseon 10-14-2024 FINGERSTICK GLU 168 mg/dL High 74-106 [facility] Comment on above: Result Comment: OLGA GEMENT OF PATIENT CARE PER NURSING PROTOCOL Performed By: #### L 501.080 ####[facility] [address] [place], [address] FINGERSTICK GLU 179 mg/dL High 74-106 [facility] Comment on above: Result Comment: OLGA GEMENT OF PATIENT CARE PER NURSING PROTOCOL Performed By: #### L 501.080 ####[facility] [address] [place], [address] FINGERSTICK GLU 192 mg/dL High 74-106 [facility] Comment on above: Result Comment: OLGA GEMENT OF PATIENT CARE PER NURSING PROTOCOL Performed By: #### L 501.080 ####[facility] [address] [place], [address] FINGERSTICK GLU 96 mg/dL Normal 74-106 [facility] Comment on above: Result Comment: OLGA GEMENT OF PATIENT CARE PER NURSING PROTOCOL Performed By: #### L 501.080 ####[facility] [address] [place], [address] FINGERSTICK GLU 84 mg/dL Normal 74-106 [facility] Comment on above: Result Comment: OLGA GEMENT OF PATIENT CARE PER NURSING PROTOCOL Performed By: #### L 501.080 ####[facility] [address] [place], [address] Basic Metabolic Profile (BMP )on 10-13-2024 Anion gap [Moles/Vol] 12 mmol/L Normal 5-15 [facility] Comment on above: Performed By: #### L 500.2500 ####[facility] [address] [place], [address] BUN/CRE 26.2 RATIO High 10-20 [facility] Comment on above: Performed By: #### L 500.2500 ####[facility] [address] [place], [address] Calcium [Mass/Vol] 9.2 mg/dL Normal 7.6-11.0 [facility] Comment on above: Performed By: #### L 500.2500 ####[facility] [address] [place], [address] Chloride [Moles/Vol] 105 mmol/L Normal 96-108 [facility] Comment on above: Performed By: #### L 500.2500 ####[facility] [address] [place], [address] CO2 [Moles/Vol] 23.6 mmol/L Normal 22.0-29.0 [facility] Comment on above: Performed By: #### L 500.2500 ####[facility] [address] [place], [address] Creatinine [Mass/Vol] 0.81 mg/dL Normal 0.70-1.20 [facility] Comment on above: Performed By: #### L 500.2500 ####[facility] [address] [place], [address] ECRCL 48.72 ml/min Low 50-250 [facility] Comment on above: Performed By: #### L 500.2500 ####[facility] [address] [place], [address] GFR/1.73 sq M.predicted among non-blacks MDRD (S/P/Bld) [Vol rate/Area] 73 mL/min/{1.73_m2} Normal >60 [facility] Comment on above: Result Comment: mL/m in/1.73m2 CKD-EPI Creatinine Equation (2020) Performed By: #### L 500.2500 ####[facility] [address] [place], [address] Glucose [Mass/Vol] 176 mg/dL High 70-99 [facility] Comment on above: Performed By: #### L 500.2500 ####[facility] [address] [place], [address] Potassium [Moles/Vol] 3.9 mmol/L Normal 3.3-5.1 [facility] Comment on above: Performed By: #### L 500.2500 ####[facility] [address] [place], [address] Sodium [Moles/Vol] 140 mmol/L Normal 133-145 [facility] Comment on above: Performed By: #### L 500.2500 ####[facility] [address] [place], [address] Urea nitrogen [Mass/Vol] 21 mg/dL High 4-19 [facility] Comment on above: Performed By: #### L 500.2500 ####[facility] [address] [place], [address] BUN Normal 7-18 [facility] Comment on above: Result Comment: WILL REORDER Performed By: #### L 500.2500, L100.0100 ####[facility] [address] [place], [address] BUN/CRE Normal 10-20 [facility] Comment on above: Result Comment: WILL REORDER Performed By: #### L 500.2500, L100.0100 ####[facility] [address] [place], [address] Calcium Normal 8.5-10.1 [facility] Comment on above: Result Comment: WILL REORDER Performed By: #### L 500.2500, L100.0100 ####[facility] [address] [place], [address] CL Normal 98-107 [facility] Comment on above: Result Comment: WILL REORDER Performed By: #### L 500.2500, L100.0100 ####[facility] [address] [place], [address] CO2 Normal 21.0-32.0 [facility] Comment on above: Result Comment: WILL REORDER Performed By: #### L 500.2500, L100.0100 ####[facility] [address] [place], [address] CREAT,SERUM Normal 0.55-1.02 [facility] Comment on above: Result Comment: WILL REORDER Performed By: #### L 500.2500, L100.0100 ####[facility] [address] [place], [address] eGFR Normal >60 [facility] Comment on above: Result Comment: WILL REORDER Performed By: #### L 500.2500, L100.0100 ####[facility] [address] [place], [address] EST GFR - AA Normal >60 [facility] Comment on above: Result Comment: WILL REORDER Performed By: #### L 500.2500, L100.0100 ####[facility] [address] [place], [address] GAP Normal 5-15 [facility] Comment on above: Result Comment: WILL REORDER Performed By: #### L 500.2500, L100.0100 ####[facility] [address] [place], [address] GLU Normal 74-106 [facility] Comment on above: Result Comment: WILL REORDER Performed By: #### L 500.2500, L100.0100 ####[facility] [address] [place], [address] Potassium Normal 3.5-5.1 [facility] [facility] Comment on above: Result Comment: WILL REORDER Performed By: #### L 500.2500, L100.0100 ####[facility] [address] [place], [address] Basic Metabolic Profile (BMP) Normal 136-145 [facility] Comment on above: Result Comment: WILL REORDER Performed By: #### L 500.2500, L100.0100 ####[facility] [address] [place], [address] Bedside Glucoseon 10-13-2024 FINGERSTICK GLU 188 mg/dL High 74-106 [facility] Comment on above: Result Comment: OLGA GEMENT OF PATIENT CARE PER NURSING PROTOCOL Performed By: #### L 501.080 ####[facility] [address] [place], [address] FINGERSTICK GLU 143 mg/dL High 74-106 [facility] Comment on above: Result Comment: OLGA GEMENT OF PATIENT CARE PER NURSING PROTOCOL Performed By: #### L 501.080 ####[facility] [address] [place], [address] FINGERSTICK GLU 268 mg/dL High 74-106 [facility] Comment on above: Result Comment: OLGA GEMENT OF PATIENT CARE PER NURSING PROTOCOL Performed By: #### L 501.080 ####[facility] [address] [place], [address] FINGERSTICK GLU 173 mg/dL High 74-106 [facility] Comment on above: Result Comment: OLGA GEMENT OF PATIENT CARE PER NURSING PROTOCOL Performed By: #### L 501.080 ####[facility] [address] [place], [address] CBC W/Diff, Automatedon 03-0 3-5 Absolute Lymph 2.78 X10 3/uL Normal 0.83-4.51 [facility] Comment on above: Performed By: #### L 500.2500, L100.0100 ####[facility] [address] [place], [address] Absolute Neut 3.6 X10 3/uL Normal 2.0-7.7 [facility] Comment on above: Performed By: #### L 500.2500, L100.0100 ####[facility] [address] [place], [address] Basophils/100 WBC (Bld) 0.4 % Normal 0-1 [facility] Comment on above: Performed By: #### L 500.2500, L100.0100 ####[facility] [address] [place], [address] Eosinophils/100 WBC (Bld) 4.1 % Normal 0-5 [facility] Comment on above: Performed By: #### L 500.2500, L100.0100 ####[facility] [address] [place], [address] Erythrocyte distribution width (RBC) [Ratio] 13.2 % Normal 11.6-14.6 [facility] Comment on above: Performed By: #### L 500.2500, L100.0100 ####[facility] [address] [place], [address] Hematocrit (Bld) [Volume fraction] 34.1 % Low 37-47 [facility] Comment on above: Performed By: #### L 500.2500, L100.0100 ####[facility] [address] [place], [address] Hemoglobin (Bld) [Mass/Vol] 11.5 g/dL Low 12.0-15.0 [facility] Comment on above: Performed By: #### L 500.2500, L100.0100 ####[facility] [address] [place], [address] IG% 0.300 Normal 0.0-0.9 [facility] Comment on above: Result Comment: IG% - Immature Granulocytes (promyelocytes, myelocytes andmetamyelocytes) > 1% indicates that a LEFT SHIFT is Present. Performed By: #### L 500.2500, L100.0100 ####[facility] [address] [place], [address] Lymphocytes/100 WBC (Bld) 36.3 % Normal 19-41 [facility] Comment on above: Performed By: #### L 500.2500, L100.0100 ####[facility] [address] [place], [address] MCH (RBC) [Entitic mass] 31.3 pg Normal 27.0-32.0 [facility] Comment on above: Performed By: #### L 500.2500, L100.0100 ####[facility] [address] [place], [address] MCHC (RBC) [Mass/Vol] 33.7 g/dL Normal 32-36 [facility] Comment on above: Performed By: #### L 500.2500, L100.0100 ####[facility] [address] [place], [address] MCV (RBC) [Entitic vol] 92.7 fL Normal 81-99 [facility] Comment on above: Performed By: #### L 500.2500, L100.0100 ####[facility] [address] [place], [address] Monocytes/100 WBC (Bld) 11.9 % High 0-10 [facility] Comment on above: Performed By: #### L 500.2500, L100.0100 ####[facility] [address] [place], [address] Neutrophils/100 WBC (Bld) 47.0 % Normal 47-70 [facility] Comment on above: Performed By: #### L 500.2500, L100.0100 ####[facility] [address] [place], [address] Nucleated RBC (Bld) [#/Vol] 0 10*3/uL Normal 0-5 [facility] Comment on above: Performed By: #### L 500.2500, L100.0100 ####[facility] [address] [place], [address] Platelet mean volume (Bld) [Entitic vol] 10.4 fL Normal 6.2-12.0 [facility] Comment on above: Performed By: #### L 500.2500, L100.0100 ####[facility] [address] [place], [address] Platelets (Bld) [#/Vol] 210 10*3/uL Normal 150-450 [facility] Comment on above: Performed By: #### L 500.2500, L100.0100 ####[facility] [address] [place], [address] RBC (Bld) [#/Vol] 3.68 10*6/uL Low 4.2-5.4 [facility] Comment on above: Performed By: #### L 500.2500, L100.0100 ####[facility] [address] [place], [address] RDW SD 44.4 fl High 35.1-43.9 [facility] Comment on above: Performed By: #### L 500.2500, L100.0100 ####[facility] [address] [place], [address] WBC (Bld) [#/Vol] 7.7 10*3/uL Normal 4.4-11.0 [facility] Comment on above: Performed By: #### L 500.2500, L100.0100 ####[facility] [address] [place], [address] Bedside Glucoseon 10-12-2024 FINGERSTICK GLU 188 mg/dL High [address] [place] [address] Comment on above: Result Comment: OLGA GEMENT OF PATIENT CARE PER NURSING PROTOCOL Performed By: #### L 501.080 ####[facility] [address] [place], [address] FINGERSTICK GLU 208 mg/dL High [address] [place] [address] Comment on above: Result Comment: OLGA GEMENT OF PATIENT CARE PER NURSING PROTOCOL Performed By: #### L 501.080 ####[facility] [address] [place], [address] FINGERSTICK GLU 195 mg/dL High [address] [place] [address] Comment on above: Result Comment: OLGA GEMENT OF PATIENT CARE PER NURSING PROTOCOL Performed By: #### L 501.080 ####[facility] [address] [place], [address] FINGERSTICK GLU 97 mg/dL Normal -[address] [place] [address] Comment on above: Result Comment: OLGA GEMENT OF PATIENT CARE PER NURSING PROTOCOL Performed By: #### L 501.080 ####[facility] [address] [place], [address] Bedside Glucoseon 5 FINGERSTICK GLU 195 mg/dL High [address] [place] [address] Comment on above: Result Comment: OLGA GEMENT OF PATIENT CARE PER NURSING PROTOCOL Performed By: #### L 501.080 ####[facility] [address] [place], [address] FINGERSTICK GLU 151 mg/dL High [address] [place] [address] Comment on above: Result Comment: OLGA GEMENT OF PATIENT CARE PER NURSING PROTOCOL Performed By: #### L 501.080 ####[facility] [address] [place], [address] FINGERSTICK GLU 197 mg/dL High -106 [facility] Comment on above: Result Comment: OLGA GEMENT OF PATIENT CARE PER NURSING PROTOCOL Performed By: #### L 501.080 ####[facility] [address] [place], [address] FINGERSTICK GLU 196 mg/dL High [facility]106 [facility] Comment on above: Result Comment: OLGA GEMENT OF PATIENT CARE PER NURSING PROTOCOL Performed By: #### L 501.080 ####[facility] [address] [place], [address] Bedside Glucoseon 10-10-2024 FINGERSTICK GLU 246 mg/dL High [address] [place] [address] Comment on above: Result Comment: OLGA GEMENT OF PATIENT CARE PER NURSING PROTOCOL Performed By: #### L 501.080 ####[facility] [address] [place], [address] FINGERSTICK GLU 283 mg/dL High [facility]106 [facility] Comment on above: Result Comment: OLGA GEMENT OF PATIENT CARE PER NURSING PROTOCOL Performed By: #### L 501.080 ####[facility] [address] [place], [address] FINGERSTICK GLU 227 mg/dL High [address] [place] [address] Comment on above: Result Comment: OLGA GEMENT OF PATIENT CARE PER NURSING PROTOCOL Performed By: #### L 501.080 ####[facility] [address] [place], [address] FINGERSTICK GLU 112 mg/dL High [address] [place] [address] Comment on above: Result Comment: OLGA GEMENT OF PATIENT CARE PER NURSING PROTOCOL Performed By: #### L 501.080 ####[facility] [address] [place], [address] Bedside Glucoseon 10-09-2024 FINGERSTICK GLU 263 mg/dL High 74-106 [facility] Comment on above: Result Comment: OLGA GEMENT OF PATIENT CARE PER NURSING PROTOCOL Performed By: #### L 501.080 ####[facility] [address] [place], [address] FINGERSTICK GLU 221 mg/dL High 74-106 [facility] Comment on above: Result Comment: OLGA GEMENT OF PATIENT CARE PER NURSING PROTOCOL Performed By: #### L 501.080 ####[facility] [address] [place], [address] FINGERSTICK GLU 298 mg/dL High 74-106 [facility] Comment on above: Result Comment: OLGA GEMENT OF PATIENT CARE PER NURSING PROTOCOL Performed By: #### L 501.080 ####[facility] [address] [place], [address] FINGERSTICK GLU 181 mg/dL High [facility]106 [facility] Comment on above: Result Comment: OLGA GEMENT OF PATIENT CARE PER NURSING PROTOCOL Performed By: #### L 501.080 ####[facility] [address] [place], [address] Bedside Glucoseon 10-08-2024 FINGERSTICK GLU 229 mg/dL High -106 [facility] Comment on above: Result Comment: OLGA GEMENT OF PATIENT CARE PER NURSING PROTOCOL Performed By: #### L 501.080 ####[facility] [address] [place], [address] FINGERSTICK GLU 207 mg/dL High -106 [facility] Comment on above: Result Comment: OLGA GEMENT OF PATIENT CARE PER NURSING PROTOCOL Performed By: #### L 501.080 ####[facility] [address] [place], [address] FINGERSTICK GLU 271 mg/dL High [address] [place] [address] Comment on above: Result Comment: OLGA GEMENT OF PATIENT CARE PER NURSING PROTOCOL Performed By: #### L 501.080 ####[facility] [address] [place], [address] FINGERSTICK GLU 143 mg/dL High [address] [place] [address] Comment on above: Result Comment: OLGA GEMENT OF PATIENT CARE PER NURSING PROTOCOL Performed By: #### L 501.080 ####[facility] [address] [place], [address] Bedside Glucoseon 10-07-2024 FINGERSTICK GLU 137 mg/dL [address] Comment on above: Result Comment: OLGA GEMENT OF PATIENT CARE PER NURSING PROTOCOL Performed By: #### L 501.080 ####[facility] [address] [place], [address] FINGERSTICK GLU 165 mg/dL [address] Comment on above: Result Comment: OLGA GEMENT OF PATIENT CARE PER NURSING PROTOCOL Performed By: #### L 501.080 ####[facility] [address] [place], [address] FINGERSTICK GLU 324 mg/dL [address] Comment on above: Result Comment: OLGA GEMENT OF PATIENT CARE PER NURSING PROTOCOL Performed By: #### L 501.080 ####[facility] [address] [place], [address] FINGERSTICK GLU 241 mg/dL [address] Comment on above: Result Comment: OLGA GEMENT OF PATIENT CARE PER NURSING PROTOCOL Performed By: #### L 501.080 ####[facility] [address] [place], [address] Basic Metabolic Profile (BMP )on 10-06-2024 BUN/CRE 30.6 RATIO High 10-20 [facility] Comment on above: Performed By: #### L 500.2500, L100.0100 ####[facility] [address] [place], [address] CA,Total 9.3 mg/dL Normal 8.5-10.1 [facility] Comment on above: Performed By: #### L 500.2500, L100.0100 ####[facility] [address] [place], [address] Chloride [Moles/Vol] 106 mmol/L Normal 98-107 [facility] Comment on above: Performed By: #### L 500.2500, L100.0100 ####[facility] [address] [place], [address] CO2 [Moles/Vol] 25.0 mmol/L Normal 21.0-32.0 [facility] Comment on above: Performed By: #### L 500.2500, L100.0100 ####[facility] [address] [place], [address] Creatinine [Mass/Vol] 0.75 mg/dL Normal 0.55-1.02 [facility] Comment on above: Result Comment: The validity of the calculated GFR GFRAA in patients over70 years has not been determined. Clinical correlation isessential. Performed By: #### L 500.2500, L100.0100 ####[facility] [address] [place], [address] ECRCL 49.46 ml/min Normal [facility] Comment on above: Performed By: #### L 500.2500, L100.0100 ####[facility] [address] [place], [address] EST GFR - AA 95 mL/min Normal >60 [facility] Comment on above: Result Comment: Afri can Liberian GFR Calc Performed By: #### L 500.2500, L100.0100 ####[facility] [address] [place], [address] GAP 8 Normal 5-15 [facility] Comment on above: Performed By: #### L 500.2500, L100.0100 ####[facility] [address] [place], [address] GFR/1.73 sq M.predicted among non-blacks MDRD (S/P/Bld) [Vol rate/Area] 78 mL/min/{1.73_m2} Normal >60 [facility] Comment on above: Result Comment: Non- GFR Calc Performed By: #### L 500.2500, L100.0100 ####[facility] [address] [place], [address] Glucose [Mass/Vol] 179 mg/dL High 74-106 [facility] Comment on above: Result Comment: Fast ing Glucose result greater than or equal to 126 mg/dLsuggests DIABETES MELLITUS per A.D.A. criteria. Performed By: #### L 500.2500, L100.0100 ####[facility] [address] [place], [address] Potassium [Moles/Vol] 3.9 mmol/L Normal 3.5-5.1 [facility] Comment on above: Performed By: #### L 500.2500, L100.0100 ####[facility] [address] [place], [address] Sodium [Moles/Vol] 139 mmol/L Normal 136-145 [facility] Comment on above: Performed By: #### L 500.2500, L100.0100 ####[facility] [address] [place], [address] Urea nitrogen [Mass/Vol] 23 mg/dL High 7-18 [facility] Comment on above: Performed By: #### L 500.2500, L100.0100 ####[facility] [address] [place], [address] Bedside Glucoseon 02-24-2025 FINGERSTICK GLU 234 mg/dL High -106 [facility] Comment on above: Result Comment: OLGA GEMENT OF PATIENT CARE PER NURSING PROTOCOL Performed By: #### L 501.080 ####[facility] [address] [place], [address] FINGERSTICK GLU 225 mg/dL High [facility]106 [facility] Comment on above: Result Comment: OLGA GEMENT OF PATIENT CARE PER NURSING PROTOCOL Performed By: #### L 501.080 ####[facility] [address] [place], [address] FINGERSTICK GLU 298 mg/dL High [address] [place] [address] Comment on above: Result Comment: OLGA GEMENT OF PATIENT CARE PER NURSING PROTOCOL Performed By: #### L 501.080 ####[facility] [address] [place], [address] FINGERSTICK GLU 183 mg/dL High [address] [place] [address] Comment on above: Result Comment: OLGA GEMENT OF PATIENT CARE PER NURSING PROTOCOL Performed By: #### L 501.080 ####[facility] [address] [place], [address] CBC W/Diff, Automatedon - Absolute Lymph 2.46 X10 3/uL Normal 0.83-4.51 [facility] Comment on above: Performed By: #### L 500.2500, L100.0100 ####[facility] [address] [place], [address] Absolute Neut 4.7 X10 3/uL Normal 2.0-7.7 [facility] Comment on above: Performed By: #### L 500.2500, L100.0100 ####[facility] [address] [place], [address] Basophils/100 WBC (Bld) 0.5 % Normal 0-1 [facility] Comment on above: Performed By: #### L 500.2500, L100.0100 ####[facility] [address] [place], [address] Eosinophils/100 WBC (Bld) 4.2 % Normal 0-5 [facility] Comment on above: Performed By: #### L 500.2500, L100.0100 ####[facility] [address] [place], [address] Erythrocyte distribution width (RBC) [Ratio] 12.9 % Normal 11.6-14.6 [facility] Comment on above: Performed By: #### L 500.2500, L100.0100 ####[facility] [address] [place], [address] Hematocrit (Bld) [Volume fraction] 36.2 % Low 37-47 [facility] Comment on above: Performed By: #### L 500.2500, L100.0100 ####[facility] [address] [place], [address] Hemoglobin (Bld) [Mass/Vol] 12.1 g/dL Normal 12.0-15.0 [facility] Comment on above: Performed By: #### L 500.2500, L100.0100 ####[facility] [address] [place], [address] IG% 0.200 Normal 0.0-0.9 [facility] Comment on above: Result Comment: IG% - Immature Granulocytes (promyelocytes, myelocytes andmetamyelocytes) > 1% indicates that a LEFT SHIFT is Present. Performed By: #### L 500.2500, L100.0100 ####[facility] [address] [place], [address] Lymphocytes/100 WBC (Bld) 28.9 % Normal 19-41 [facility] Comment on above: Performed By: #### L 500.2500, L100.0100 ####[facility] [address] [place], [address] MCH (RBC) [Entitic mass] 31.1 pg Normal 27.0-32.0 [facility] Comment on above: Performed By: #### L 500.2500, L100.0100 ####[facility] [address] [place], [address] MCHC (RBC) [Mass/Vol] 33.4 g/dL Normal 32-36 [facility] Comment on above: Performed By: #### L 500.2500, L100.0100 ####[facility] [address] [place], [address] MCV (RBC) [Entitic vol] 93.1 fL Normal 81-99 [facility] Comment on above: Performed By: #### L 500.2500, L100.0100 ####[facility] [address] [place], [address] Monocytes/100 WBC (Bld) 10.5 % High 0-10 [facility] Comment on above: Performed By: #### L 500.2500, L100.0100 ####[facility] [address] [place], [address] Neutrophils/100 WBC (Bld) 55.7 % Normal 47-70 [facility] Comment on above: Performed By: #### L 500.2500, L100.0100 ####[facility] [address] [place], [address] Nucleated RBC (Bld) [#/Vol] 0 10*3/uL Normal 0-5 [facility] Comment on above: Performed By: #### L 500.2500, L100.0100 ####[facility] [address] [place], [address] Platelet mean volume (Bld) [Entitic vol] 10.9 fL Normal 6.2-12.0 [facility] Comment on above: Performed By: #### L 500.2500, L100.0100 ####[facility] [address] [place], [address] Platelets (Bld) [#/Vol] 229 10*3/uL Normal 150-450 [facility] Comment on above: Performed By: #### L 500.2500, L100.0100 ####[facility] [address] [place], [address] RBC (Bld) [#/Vol] 3.89 10*6/uL Low 4.2-5.4 [facility] Comment on above: Performed By: #### L 500.2500, L100.0100 ####[facility] [address] [place], [address] RDW SD 43.7 fl Normal 35.1-43.9 [facility] Comment on above: Performed By: #### L 500.2500, L100.0100 ####[facility] [address] [place], [address] WBC (Bld) [#/Vol] 8.5 10*3/uL Normal 4.4-11.0 [facility] Comment on above: Performed By: #### L 500.2500, L100.0100 ####[facility] [address] [place], [address] Bedside Glucoseon 10-05-2024 FINGERSTICK GLU 233 mg/dL High 74-106 [facility] Comment on above: Result Comment: OLGA GEMENT OF PATIENT CARE PER NURSING PROTOCOL Performed By: #### L 501.080 ####[facility] [address] [place], [address] FINGERSTICK GLU 249 mg/dL High 74-106 [facility] Comment on above: Result Comment: OLGA GEMENT OF PATIENT CARE PER NURSING PROTOCOL Performed By: #### L 501.080 ####[facility] [address] [place], [address] FINGERSTICK GLU 368 mg/dL High 74-106 [facility] Comment on above: Result Comment: OLGA GEMENT OF PATIENT CARE PER NURSING PROTOCOL Performed By: #### L 501.080 ####[facility] [address], [address] FINGERSTICK GLU 233 mg/dL High 74-106 [facility] Comment on above: Result Comment: OLGA GEMENT OF PATIENT CARE PER NURSING PROTOCOL Performed By: #### L 501.080 ####[facility] [address] [place], [address] Bedside Glucoseon 10-04-2024 FINGERSTICK GLU 305 mg/dL High -[address] [place] [address] Comment on above: Result Comment: OLGA GEMENT OF PATIENT CARE PER NURSING PROTOCOL Performed By: #### L 501.080 ####[facility] [address] [place], [address] FINGERSTICK GLU 331 mg/dL High [address] [place] [address] Comment on above: Result Comment: OLGA GEMENT OF PATIENT CARE PER NURSING PROTOCOL Performed By: #### L 501.080 ####[facility] [address] [place], [address] FINGERSTICK GLU 298 mg/dL High [facility]106 [facility] Comment on above: Result Comment: OLGA GEMENT OF PATIENT CARE PER NURSING PROTOCOL Performed By: #### L 501.080 ####[facility] [address] [place], [address] FINGERSTICK GLU 215 mg/dL High [address] [place] [address] Comment on above: Result Comment: OLGA GEMENT OF PATIENT CARE PER NURSING PROTOCOL Performed By: #### L 501.080 ####[facility] [address] [place], [address] Bedside Glucoseon 10-03-2024 FINGERSTICK GLU 191 mg/dL High 74-106 [facility] Comment on above: Result Comment: OLGA GEMENT OF PATIENT CARE PER NURSING PROTOCOL Performed By: #### L 501.080 ####[facility] [address] [place], [address] FINGERSTICK GLU 188 mg/dL High [facility]106 [facility] Comment on above: Result Comment: OLGA GEMENT OF PATIENT CARE PER NURSING PROTOCOL Performed By: #### L 501.080 ####[facility] [address] [place], [address] FINGERSTICK GLU 321 mg/dL High [address] [place] [address] Comment on above: Result Comment: OLGA GEMENT OF PATIENT CARE PER NURSING PROTOCOL Performed By: #### L 501.080 ####[facility] [address] [place], [address] FINGERSTICK GLU 178 mg/dL High -[address] [place] [address] Comment on above: Result Comment: OLGA GEMENT OF PATIENT CARE PER NURSING PROTOCOL Performed By: #### L 501.080 ####[facility] [address] [place], [address] Bedside Glucoseon 10-02-2024 FINGERSTICK GLU 214 mg/dL High -[address] [place] [address] Comment on above: Result Comment: OLGA GEMENT OF PATIENT CARE PER NURSING PROTOCOL Performed By: #### L 501.080 ####[facility] [address] [place], [address] FINGERSTICK GLU 205 mg/dL High [address] [place] [address] Comment on above: Result Comment: OLGA GEMENT OF PATIENT CARE PER NURSING PROTOCOL Performed By: #### L 501.080 ####[facility] [address] [place], [address] FINGERSTICK GLU 269 mg/dL High [address] [place] [address] Comment on above: Result Comment: OLGA GEMENT OF PATIENT CARE PER NURSING PROTOCOL Performed By: #### L 501.080 ####[facility] [address] [place], [address] FINGERSTICK GLU 185 mg/dL High 74-106 [facility] Comment on above: Result Comment: OLGA GEMENT OF PATIENT CARE PER NURSING PROTOCOL Performed By: #### L 501.080 ####[facility] [address] [place], [address] Bedside Glucoseon 10-01-2024 FINGERSTICK GLU 213 mg/dL High 74-106 [facility] Comment on above: Result Comment: OLGA GEMENT OF PATIENT CARE PER NURSING PROTOCOL Performed By: #### L 501.080 ####[facility] [address] [place], [address] FINGERSTICK GLU 193 mg/dL High 74-106 [facility] Comment on above: Result Comment: OLGA GEMENT OF PATIENT CARE PER NURSING PROTOCOL Performed By: #### L 501.080 ####[facility] [address] [place], [address] FINGERSTICK GLU 253 mg/dL High -106 [facility] Comment on above: Result Comment: OLGA GEMENT OF PATIENT CARE PER NURSING PROTOCOL Performed By: #### L 501.080 ####[facility] [address] [place], [address] FINGERSTICK GLU 172 mg/dL High 74-106 [facility] Comment on above: Result Comment: OLGA GEMENT OF PATIENT CARE PER NURSING PROTOCOL Performed By: #### L 501.080 ####[facility] [address] [place], [address] COVID 19 AG RAPID (MANNY Peters)on 10-01-2024 SARS-CoV-2 (COVID-19) RNA JOANNA+probe Ql (Unsp spec) Normal [facility] Comment on above: Performed By: #### M 100.505 ####[facility] [address] [place], [address] SP/SP.FEESon 10-01-2024 SP/SP.FEES Normal [facility] Bedside Glucoseon 09-30-2024 FINGERSTICK GLU 187 mg/dL High 74-106 [facility] Comment on above: Result Comment: OLGA GEMENT OF PATIENT CARE PER NURSING PROTOCOL Performed By: #### L 501.080 ####[facility] [address] [place], [address] FINGERSTICK GLU 199 mg/dL High 74-106 [facility] Comment on above: Result Comment: OLGA GEMENT OF PATIENT CARE PER NURSING PROTOCOL Performed By: #### L 501.080 ####[facility] [address] [place], [address] FINGERSTICK GLU 233 mg/dL High 74-106 [facility] Comment on above: Result Comment: OLGA GEMENT OF PATIENT CARE PER NURSING PROTOCOL Performed By: #### L 501.080 ####[facility] [address] [place], [address] FINGERSTICK GLU 181 mg/dL High 74-106 [facility] Comment on above: Result Comment: OLGA GEMENT OF PATIENT CARE PER NURSING PROTOCOL Performed By: #### L 501.080 ####[facility] [address] [place], [address] Consultation - Surgicalon Consultation - Surgical Normal [facility] Basic Metabolic Profile (BMP )on 09-29-2024 BUN/CRE 21.9 RATIO High 10-20 [facility] Comment on above: Performed By: #### L 100.0100, L500.2500 ####[facility] [address] [place], [address] CA,Total 9.1 mg/dL Normal 8.5-10.1 [facility] Comment on above: Performed By: #### L 100.0100, L500.2500 ####[facility] [address] [place], [address] Chloride [Moles/Vol] 105 mmol/L Normal 98-107 [facility] Comment on above: Performed By: #### L 100.0100, L500.2500 ####[facility] [address] [place], [address] CO2 [Moles/Vol] 26.0 mmol/L Normal 21.0-32.0 [facility] Comment on above: Performed By: #### L 100.0100, L500.2500 ####[facility] [address] [place], [address] Creatinine [Mass/Vol] 0.82 mg/dL Normal 0.55-1.02 [facility] Comment on above: Result Comment: The validity of the calculated GFR GFRAA in patients over70 years has not been determined. Clinical correlation isessential. Performed By: #### L 100.0100, L500.2500 ####[facility] [address] [place], [address] ECRCL 48.54 ml/min Normal [facility] Comment on above: Performed By: #### L 100.0100, L500.2500 ####[facility] [address] [place], [address] EST GFR - AA 86 mL/min Normal >60 [facility] Comment on above: Result Comment: Afri can Liberian GFR Calc Performed By: #### L 100.0100, L500.2500 ####[facility] [address] [place], [address] GAP 7 Normal 5-15 [facility] Comment on above: Performed By: #### L 100.0100, L500.2500 ####[facility] [address] [place], [address] GFR/1.73 sq M.predicted among non-blacks MDRD (S/P/Bld) [Vol rate/Area] 71 mL/min/{1.73_m2} Normal >60 [facility] Comment on above: Result Comment: Non- GFR Calc Performed By: #### L 100.0100, L500.2500 ####[facility] [address] [place], [address] Glucose [Mass/Vol] 200 mg/dL High 74-106 [facility] Comment on above: Result Comment: Gluc ose result greater than or equal to 200 mg/dLsuggests DIABETES MELLITUS per A.D.A. criteria. Performed By: #### L 100.0100, L500.2500 ####[facility] [address] [place], [address] Potassium [Moles/Vol] 3.8 mmol/L Normal 3.5-5.1 [facility] Comment on above: Performed By: #### L 100.0100, L500.2500 ####[facility] [address] [place], [address] Sodium [Moles/Vol] 138 mmol/L Normal 136-145 [facility] Comment on above: Performed By: #### L 100.0100, L500.2500 ####[facility] [address] [place], [address] Urea nitrogen [Mass/Vol] 18 mg/dL Normal 7-18 [facility] Comment on above: Performed By: #### L 100.0100, L500.2500 ####[facility] [address] [place], [address] Bedside Glucoseon 09-29-2024 FINGERSTICK GLU 171 mg/dL High 74-106 [facility] Comment on above: Result Comment: OLGA GOMEZ OF PATIENT CARE PER NURSING PROTOCOL Performed By: #### L 501.080 ####[facility] [address] [place], [address] FINGERSTICK GLU 140 mg/dL High 74-106 [facility] Comment on above: Result Comment: OLGA GEMENT OF PATIENT CARE PER NURSING PROTOCOL Performed By: #### L 501.080 ####[facility] [address] [place], [address] FINGERSTICK GLU 244 mg/dL High 74-106 [facility] Comment on above: Result Comment: OLGA GEMENT OF PATIENT CARE PER NURSING PROTOCOL Performed By: #### L 501.080 ####[facility] [address] [place], [address] FINGERSTICK GLU 191 mg/dL High 74-106 [facility] Comment on above: Result Comment: OLGA GEMENT OF PATIENT CARE PER NURSING PROTOCOL Performed By: #### L 501.080 ####[facility] [address] [place], [address] CBC W/Diff, Automatedon - Absolute Lymph 2.40 X10 3/uL Normal 0.83-4.51 [facility] Comment on above: Performed By: #### L 100.0100, L500.2500 ####[facility] [address] [place], [address] Absolute Neut 4.0 X10 3/uL Normal 2.0-7.7 [facility] Comment on above: Performed By: #### L 100.0100, L500.2500 ####[facility] [address] [place], [address] Basophils/100 WBC (Bld) 0.4 % Normal 0-1 [facility] Comment on above: Performed By: #### L 100.0100, L500.2500 ####[facility] [address] [place], [address] Eosinophils/100 WBC (Bld) 4.1 % Normal 0-5 [facility] Comment on above: Performed By: #### L 100.0100, L500.2500 ####[facility] [address] [place], [address] Erythrocyte distribution width (RBC) [Ratio] 12.8 % Normal 11.6-14.6 [facility] Comment on above: Performed By: #### L 100.0100, L500.2500 ####[facility] [address] [place], [address] Hematocrit (Bld) [Volume fraction] 37.7 % Normal 37-47 [facility] Comment on above: Performed By: #### L 100.0100, L500.2500 ####[facility] [address] [place], [address] Hemoglobin (Bld) [Mass/Vol] 12.4 g/dL Normal 12.0-15.0 [facility] Comment on above: Performed By: #### L 100.0100, L500.2500 ####[facility] [address] [place], [address] IG% 0.400 Normal 0.0-0.9 [facility] Comment on above: Result Comment: IG% - Immature Granulocytes (promyelocytes, myelocytes andmetamyelocytes) > 1% indicates that a LEFT SHIFT is Present. Performed By: #### L 100.0100, L500.2500 ####[facility] [address] [place], [address] Lymphocytes/100 WBC (Bld) 31.7 % Normal 19-41 [facility] Comment on above: Performed By: #### L 100.0100, L500.2500 ####[facility] [address] [place], [address] MCH (RBC) [Entitic mass] 30.5 pg Normal 27.0-32.0 [facility] Comment on above: Performed By: #### L 100.0100, L500.2500 ####[facility] [address] [place], [address] MCHC (RBC) [Mass/Vol] 32.9 g/dL Normal 32-36 [facility] Comment on above: Performed By: #### L 100.0100, L500.2500 ####[facility] [address] [place], [address] MCV (RBC) [Entitic vol] 92.9 fL Normal 81-99 [facility] Comment on above: Performed By: #### L 100.0100, L500.2500 ####[facility] [address] [place], [address] Monocytes/100 WBC (Bld) 10.1 % High 0-10 [facility] Comment on above: Performed By: #### L 100.0100, L500.2500 ####[facility] [address] [place], [address] Neutrophils/100 WBC (Bld) 53.3 % Normal 47-70 [facility] Comment on above: Performed By: #### L 100.0100, L500.2500 ####[facility] [address] [place], [address] Nucleated RBC (Bld) [#/Vol] 0 10*3/uL Normal 0-5 [facility] Comment on above: Performed By: #### L 100.0100, L500.2500 ####[facility] [address] [place], [address] Platelet mean volume (Bld) [Entitic vol] 10.7 fL Normal 6.2-12.0 [facility] Comment on above: Performed By: #### L 100.0100, L500.2500 ####[facility] [address] [place], [address] Platelets (Bld) [#/Vol] 229 10*3/uL Normal 150-450 [facility] Comment on above: Performed By: #### L 100.0100, L500.2500 ####[facility] [address] [place], [address] RBC (Bld) [#/Vol] 4.06 10*6/uL Low 4.2-5.4 [facility] Comment on above: Performed By: #### L 100.0100, L500.2500 ####[facility] [address] [place], [address] RDW SD 43.6 fl Normal 35.1-43.9 [facility] Comment on above: Performed By: #### L 100.0100, L500.2500 ####[facility] [address] [place], [address] WBC (Bld) [#/Vol] 7.6 10*3/uL Normal 4.4-11.0 [facility] Comment on above: Performed By: #### L 100.0100, L500.2500 ####[facility] [address] [place], [address] Bedside Glucoseon 09-28-2024 FINGERSTICK GLU 180 mg/dL High 74-106 [facility] Comment on above: Result Comment: OLGA GEMENT OF PATIENT CARE PER NURSING PROTOCOL Performed By: #### L 501.080 ####[facility] [address] [place], [address] FINGERSTICK GLU 187 mg/dL High 74-106 [facility] Comment on above: Result Comment: OLGA GEMENT OF PATIENT CARE PER NURSING PROTOCOL Performed By: #### L 501.080 ####[facility] [address] [place], [address] FINGERSTICK GLU 254 mg/dL High 74-106 [facility] Comment on above: Result Comment: OLGA GEMENT OF PATIENT CARE PER NURSING PROTOCOL Performed By: #### L 501.080 ####[facility] [address] [place], [address] FINGERSTICK GLU 146 mg/dL High -106 [facility] Comment on above: Result Comment: OLGA GEMENT OF PATIENT CARE PER NURSING PROTOCOL Performed By: #### L 501.080 ####[facility] [address] [place], [address] Bedside Glucoseon 09-27-2024 FINGERSTICK GLU 178 mg/dL High [address] [place] [address] Comment on above: Result Comment: OLGA GEMENT OF PATIENT CARE PER NURSING PROTOCOL Performed By: #### L 501.080 ####[facility] [address] [place], [address] FINGERSTICK GLU 198 mg/dL [address] Comment on above: Result Comment: OLGA GEMENT OF PATIENT CARE PER NURSING PROTOCOL Performed By: #### L 501.080 ####[facility] [address] [place], [address] FINGERSTICK GLU 319 mg/dL High [address] [place] [address] Comment on above: Result Comment: OLGA GEMENT OF PATIENT CARE PER NURSING PROTOCOL Performed By: #### L 501.080 ####[facility] [address] [place], [address] FINGERSTICK GLU 223 mg/dL [address] Comment on above: Result Comment: OLGA GEMENT OF PATIENT CARE PER NURSING PROTOCOL Performed By: #### L 501.080 ####[facility] [address] [place], [address] Bedside Glucoseon 09-26-2024 FINGERSTICK GLU 330 mg/dL [address] Comment on above: Result Comment: OLGA GEMENT OF PATIENT CARE PER NURSING PROTOCOL Performed By: #### L 501.080 ####[facility] [address] [place], [address] FINGERSTICK GLU 304 mg/dL High -106 [facility] Comment on above: Result Comment: OLGA GEMENT OF PATIENT CARE PER NURSING PROTOCOL Performed By: #### L 501.080 ####[facility] [address] [place], [address] FINGERSTICK GLU 277 mg/dL High [address] [place] [address] Comment on above: Result Comment: OLGA GEMENT OF PATIENT CARE PER NURSING PROTOCOL Performed By: #### L 501.080 ####[facility] [address] [place], [address] FINGERSTICK GLU 183 mg/dL High [address] [place] [address] Comment on above: Result Comment: OLGA GEMENT OF PATIENT CARE PER NURSING PROTOCOL Performed By: #### L 501.080 ####[facility] [address] [place], [address] Bedside Glucoseon 09-25-2024 FINGERSTICK GLU 285 mg/dL High -[address] [place] [address] Comment on above: Result Comment: OLGA GEMENT OF PATIENT CARE PER NURSING PROTOCOL Performed By: #### L 501.080 ####[facility] [address] [place], [address] FINGERSTICK GLU 293 mg/dL High [address] [place] [address] Comment on above: Result Comment: OLGA GEMENT OF PATIENT CARE PER NURSING PROTOCOL Performed By: #### L 501.080 ####[facility] [address] [place], [address] FINGERSTICK GLU 219 mg/dL High -[address] [place] [address] Comment on above: Result Comment: OLGA GEMENT OF PATIENT CARE PER NURSING PROTOCOL Performed By: #### L 501.080 ####[facility] [address] [place], [address] FINGERSTICK GLU 152 mg/dL High [facility]106 [facility] Comment on above: Result Comment: OLGA GEMENT OF PATIENT CARE PER NURSING PROTOCOL Performed By: #### L 501.080 ####[facility] [address] [place], [address] Bedside Glucoseon 09-24-2024 FINGERSTICK GLU 231 mg/dL High -106 [facility] Comment on above: Result Comment: OLGA GEMENT OF PATIENT CARE PER NURSING PROTOCOL Performed By: #### L 501.080 ####[facility] [address] [place], [address] FINGERSTICK GLU 221 mg/dL High 74-106 [facility] Comment on above: Result Comment: OLGA GEMENT OF PATIENT CARE PER NURSING PROTOCOL Performed By: #### L 501.080 ####[facility] [address] [place], [address] FINGERSTICK GLU 272 mg/dL High [address] [place] [address] Comment on above: Result Comment: OLGA GEMENT OF PATIENT CARE PER NURSING PROTOCOL Performed By: #### L 501.080 ####[facility] [address] [place], [address] FINGERSTICK GLU 174 mg/dL High -106 [facility] Comment on above: Result Comment: OLGA GEMENT OF PATIENT CARE PER NURSING PROTOCOL Performed By: #### L 501.080 ####[facility] [address] [place], [address] COVID 19 AG RAPID (RN JOSE Peters)on 09-24-2024 SARS-CoV-2 (COVID-19) RNA JOANNA+probe Ql (Unsp spec) Normal [facility] Comment on above: Performed By: #### M 100.505 ####[facility] [address] [place], [address] Bedside Glucoseon 09-23-2024 FINGERSTICK GLU 264 mg/dL High [address] [place] [address] Comment on above: Result Comment: OLGA GEMENT OF PATIENT CARE PER NURSING PROTOCOL Performed By: #### L 501.080 ####[facility] [address] [place], [address] FINGERSTICK GLU 215 mg/dL High 74-106 [facility] Comment on above: Result Comment: OLGA GEMENT OF PATIENT CARE PER NURSING PROTOCOL Performed By: #### L 501.080 ####[facility] [address] [place], [address] FINGERSTICK GLU 269 mg/dL High 74-106 [facility] Comment on above: Result Comment: OLGA GEMENT OF PATIENT CARE PER NURSING PROTOCOL Performed By: #### L 501.080 ####[facility] [address] [place], [address] FINGERSTICK GLU 150 mg/dL High 74-106 [facility] Comment on above: Result Comment: OLGA GEMENT OF PATIENT CARE PER NURSING PROTOCOL Performed By: #### L 501.080 ####[facility] [address] [place], [address] Basic Metabolic Profile (BMP )on 09-22-2024 BUN/CRE 23.1 RATIO High 10-20 [facility] Comment on above: Performed By: #### L 500.2500, L100.0100 ####[facility] [address] [place], [address] CA,Total 9.0 mg/dL Normal 8.5-10.1 [facility] Comment on above: Performed By: #### L 500.2500, L100.0100 ####[facility] [address] [place], [address] Chloride [Moles/Vol] 107 mmol/L Normal 98-107 [facility] Comment on above: Performed By: #### L 500.2500, L100.0100 ####[facility] [address] [place], [address] CO2 [Moles/Vol] 24.0 mmol/L Normal 21.0-32.0 [facility] Comment on above: Performed By: #### L 500.2500, L100.0100 ####[facility] [address] [place], [address] Creatinine [Mass/Vol] 0.74 mg/dL Normal 0.55-1.02 [facility] Comment on above: Result Comment: The validity of the calculated GFR GFRAA in patients over70 years has not been determined. Clinical correlation isessential. Performed By: #### L 500.2500, L100.0100 ####[facility] [address] [place], [address] ECRCL 49.86 ml/min Normal [facility] Comment on above: Performed By: #### L 500.2500, L100.0100 ####[facility] [address] [place], [address] EST GFR - AA 97 mL/min Normal >60 [facility] Comment on above: Result Comment: Afri can Liberian GFR Calc Performed By: #### L 500.2500, L100.0100 ####[facility] [address] [place], [address] GAP 9 Normal 5-15 [facility] Comment on above: Performed By: #### L 500.2500, L100.0100 ####[facility] [address] [place], [address] GFR/1.73 sq M.predicted among non-blacks MDRD (S/P/Bld) [Vol rate/Area] 80 mL/min/{1.73_m2} Normal >60 [facility] [facility] Comment on above: Result Comment: Non- GFR Calc Performed By: #### L 500.2500, L100.0100 ####[facility] [address] [place], [address] Glucose [Mass/Vol] 129 mg/dL High 74-106 [facility] Comment on above: Result Comment: Fast ing Glucose result greater than or equal to 126 mg/dLsuggests DIABETES MELLITUS per A.D.A. criteria. Performed By: #### L 500.2500, L100.0100 ####[facility] [address] [place], [address] Potassium [Moles/Vol] 4.1 mmol/L Normal 3.5-5.1 [facility] Comment on above: Performed By: #### L 500.2500, L100.0100 ####[facility] [address] [place], [address] Sodium [Moles/Vol] 140 mmol/L Normal 136-145 [facility] Comment on above: Performed By: #### L 500.2500, L100.0100 ####[facility] [address] [place], [address] Urea nitrogen [Mass/Vol] 17 mg/dL Normal 7-18 [facility] Comment on above: Performed By: #### L 500.2500, L100.0100 ####[facility] [address] [place], [address] Bedside Glucoseon 09-22-2024 FINGERSTICK GLU 159 mg/dL High 74-106 [facility] Comment on above: Result Comment: OLGA GEMENT OF PATIENT CARE PER NURSING PROTOCOL Performed By: #### L 501.080 ####[facility] [address] [place], [address] FINGERSTICK GLU 128 mg/dL High 74-106 [facility] Comment on above: Result Comment: OLGA GEMENT OF PATIENT CARE PER NURSING PROTOCOL Performed By: #### L 501.080 ####[facility] [address] [place], [address] FINGERSTICK GLU 68 mg/dL Low 74-106 [facility] Comment on above: Result Comment: OLGA GEMENT OF PATIENT CARE PER NURSING PROTOCOL Performed By: #### L 501.080 ####[facility] [address] [place], [address] FINGERSTICK GLU 86 mg/dL Normal 74-106 [facility] Comment on above: Result Comment: OLGA GEMENT OF PATIENT CARE PER NURSING PROTOCOL Performed By: #### L 501.080 ####[facility] [address] [place], [address] FINGERSTICK GLU 66 mg/dL Low 74-106 [facility] Comment on above: Result Comment: OLGA GEMENT OF PATIENT CARE PER NURSING PROTOCOL Performed By: #### L 501.080 ####[facility] [address] [place], [address] FINGERSTICK GLU 218 mg/dL High 74-106 [facility] Comment on above: Result Comment: OLGA GEMENT OF PATIENT CARE PER NURSING PROTOCOL Performed By: #### L 501.080 ####[facility] [address] [place], [address] FINGERSTICK GLU 136 mg/dL High 74-106 [facility] Comment on above: Result Comment: OLGA GEMENT OF PATIENT CARE PER NURSING PROTOCOL Performed By: #### L 501.080 ####[facility] [address] [place], [address] CBC W/Diff, Automatedon 02-1 0-5 Absolute Lymph 2.20 X10 3/uL Normal 0.83-4.51 [facility] Comment on above: Performed By: #### L 500.2500, L100.0100 ####[facility] [address] [place], [address] Absolute Neut 3.5 X10 3/uL Normal 2.0-7.7 [facility] Comment on above: Performed By: #### L 500.2500, L100.0100 ####[facility] [address] [place], [address] Basophils/100 WBC (Bld) 0.6 % Normal 0-1 [facility] Comment on above: Performed By: #### L 500.2500, L100.0100 ####[facility] [address] [place], [address] Eosinophils/100 WBC (Bld) 4.7 % Normal 0-5 [facility] Comment on above: Performed By: #### L 500.2500, L100.0100 ####[facility] [address] [place], [address] Erythrocyte distribution width (RBC) [Ratio] 12.9 % Normal 11.6-14.6 [facility] Comment on above: Performed By: #### L 500.2500, L100.0100 ####[facility] [address] [place], [address] Hematocrit (Bld) [Volume fraction] 35.2 % Low 37-47 [facility] Comment on above: Performed By: #### L 500.2500, L100.0100 ####[facility] [address] [place], [address] Hemoglobin (Bld) [Mass/Vol] 11.8 g/dL Low 12.0-15.0 [facility] Comment on above: Performed By: #### L 500.2500, L100.0100 ####[facility] [address] [place], [address] IG% 0.300 Normal 0.0-0.9 [facility] Comment on above: Result Comment: IG% - Immature Granulocytes (promyelocytes, myelocytes andmetamyelocytes) > 1% indicates that a LEFT SHIFT is Present. Performed By: #### L 500.2500, L100.0100 ####[facility] [address] [place], [address] Lymphocytes/100 WBC (Bld) 32.3 % Normal 19-41 [facility] Comment on above: Performed By: #### L 500.2500, L100.0100 ####[facility] [address] [place], [address] MCH (RBC) [Entitic mass] 31.2 pg Normal 27.0-32.0 [facility] Comment on above: Performed By: #### L 500.2500, L100.0100 ####[facility] [address] [place], [address] MCHC (RBC) [Mass/Vol] 33.5 g/dL Normal 32-36 [facility] Comment on above: Performed By: #### L 500.2500, L100.0100 ####[facility] [address] [place], [address] MCV (RBC) [Entitic vol] 93.1 fL Normal 81-99 [facility] Comment on above: Performed By: #### L 500.2500, L100.0100 ####[facility] [address] [place], [address] Monocytes/100 WBC (Bld) 11.3 % High 0-10 [facility] Comment on above: Performed By: #### L 500.2500, L100.0100 ####[facility] [address] [place], [address] Neutrophils/100 WBC (Bld) 50.8 % Normal 47-70 [facility] Comment on above: Performed By: #### L 500.2500, L100.0100 ####[facility] [address] [place], [address] Nucleated RBC (Bld) [#/Vol] 0 10*3/uL Normal 0-5 [facility] Comment on above: Performed By: #### L 500.2500, L100.0100 ####[facility] [address] [place], [address] Platelet mean volume (Bld) [Entitic vol] 10.1 fL Normal 6.2-12.0 [facility] Comment on above: Performed By: #### L 500.2500, L100.0100 ####[facility] [address] [place], [address] Platelets (Bld) [#/Vol] 266 10*3/uL Normal 150-450 [facility] Comment on above: Performed By: #### L 500.2500, L100.0100 ####[facility] [address] [place], [address] RBC (Bld) [#/Vol] 3.78 10*6/uL Low 4.2-5.4 [facility] Comment on above: Performed By: #### L 500.2500, L100.0100 ####[facility] [address] [place], [address] RDW SD 43.8 fl Normal 35.1-43.9 [facility] Comment on above: Performed By: #### L 500.2500, L100.0100 ####[facility] [address] [place], [address] WBC (Bld) [#/Vol] 6.8 10*3/uL Normal 4.4-11.0 [facility] Comment on above: Performed By: #### L 500.2500, L100.0100 ####[facility] [address] [place], [address] Bedside Glucoseon 09-21-2024 FINGERSTICK GLU 180 mg/dL High 74-106 [facility] Comment on above: Result Comment: OLGA GEMENT OF PATIENT CARE PER NURSING PROTOCOL Performed By: #### L 501.080 ####[facility] [address] [place], [address] FINGERSTICK GLU 116 mg/dL High 74-106 [facility] Comment on above: Result Comment: OLGA GEMENT OF PATIENT CARE PER NURSING PROTOCOL Performed By: #### L 501.080 ####[facility] [address] [place], [address] FINGERSTICK GLU 80 mg/dL Normal 74-106 [facility] Comment on above: Result Comment: OLGA GEMENT OF PATIENT CARE PER NURSING PROTOCOL Performed By: #### L 501.080 ####[facility] [address] [place], [address] FINGERSTICK GLU 211 mg/dL High 74-106 [facility] Comment on above: Result Comment: OLGA GEMENT OF PATIENT CARE PER NURSING PROTOCOL Performed By: #### L 501.080 ####[facility] [address] [place], [address] FINGERSTICK GLU 147 mg/dL High 74-106 [facility] Comment on above: Result Comment: OLGA GEMENT OF PATIENT CARE PER NURSING PROTOCOL Performed By: #### L 501.080 ####[facility] [address] [place], [address] FINGERSTICK GLU 179 mg/dL High -106 [facility] Comment on above: Result Comment: OLGA GEMENT OF PATIENT CARE PER NURSING PROTOCOL Performed By: #### L 501.080 ####[facility] [address] [place], [address] Bedside Glucoseon 09-20-2024 FINGERSTICK GLU 128 mg/dL High -106 [facility] Comment on above: Result Comment: OLGA GEMENT OF PATIENT CARE PER NURSING PROTOCOL Performed By: #### L 501.080 ####[facility] [address] [place], [address] FINGERSTICK GLU 210 mg/dL High -106 [facility] Comment on above: Result Comment: OLGA GEMENT OF PATIENT CARE PER NURSING PROTOCOL Performed By: #### L 501.080 ####[facility] [address] [place], [address] FINGERSTICK GLU 171 mg/dL High 74-106 [facility] Comment on above: Result Comment: OLGA GEMENT OF PATIENT CARE PER NURSING PROTOCOL Performed By: #### L 501.080 ####[facility] [address] [place], [address] Bedside Glucoseon 09-19-2024 FINGERSTICK GLU 104 mg/dL Normal 74-106 [facility] Comment on above: Result Comment: OLGA GEMENT OF PATIENT CARE PER NURSING PROTOCOL Performed By: #### L 501.080 ####[facility] [address] [place], [address] FINGERSTICK GLU 113 mg/dL High -106 [facility] Comment on above: Result Comment: OLGA GEMENT OF PATIENT CARE PER NURSING PROTOCOL Performed By: #### L 501.080 ####[facility] [address] [place], [address] FINGERSTICK GLU 166 mg/dL High 74-106 [facility] Comment on above: Result Comment: OLGA GEMENT OF PATIENT CARE PER NURSING PROTOCOL Performed By: #### L 501.080 ####[facility] [address] [place], [address] FINGERSTICK GLU 161 mg/dL High -106 [facility] Comment on above: Result Comment: OLGA GEMENT OF PATIENT CARE PER NURSING PROTOCOL Performed By: #### L 501.080 ####[facility] [address] [place], [address] Modified Barium Swallow Stud yon 09-19-2024 Modified Barium Swallow Study Normal [facility] Bedside Glucoseon 09-18-2024 FINGERSTICK GLU 152 mg/dL High 74-106 [facility] Comment on above: Result Comment: OLGA GEMENT OF PATIENT CARE PER NURSING PROTOCOL Performed By: #### L 501.080 ####[facility] [address] [place], [address] FINGERSTICK GLU 129 mg/dL High 74-106 [facility] Comment on above: Result Comment: OLGA GEMENT OF PATIENT CARE PER NURSING PROTOCOL Performed By: #### L 501.080 ####[facility] [address] [place], [address] FINGERSTICK GLU 195 mg/dL High 74-106 [facility] Comment on above: Result Comment: OLGA GEMENT OF PATIENT CARE PER NURSING PROTOCOL Performed By: #### L 501.080 ####[facility] [address] [place], [address] FINGERSTICK GLU 168 mg/dL High 74-106 [facility] Comment on above: Result Comment: OLGA GEMENT OF PATIENT CARE PER NURSING PROTOCOL Performed By: #### L 501.080 ####[facility] [address] [place], [address] Bedside Glucoseon 09-17-2024 FINGERSTICK GLU 110 mg/dL High -106 [facility] Comment on above: Result Comment: OLGA GEMENT OF PATIENT CARE PER NURSING PROTOCOL Performed By: #### L 501.080 ####[facility] [address] [place], [address] FINGERSTICK GLU 117 mg/dL High 74-106 [facility] Comment on above: Result Comment: OLGA GEMENT OF PATIENT CARE PER NURSING PROTOCOL Performed By: #### L 501.080 ####[facility] [address] [place], [address] FINGERSTICK GLU 98 mg/dL Normal 74-106 [facility] Comment on above: Result Comment: OLGA GEMENT OF PATIENT CARE PER NURSING PROTOCOL Performed By: #### L 501.080 ####[facility] [address] [place], [address] FINGERSTICK GLU 134 mg/dL High 74-106 [facility] Comment on above: Result Comment: OLGA GEMENT OF PATIENT CARE PER NURSING PROTOCOL Performed By: #### L 501.080 ####[facility] [address] [place], [address] FINGERSTICK GLU 113 mg/dL High 74-106 [facility] Comment on above: Result Comment: OLGA GEMENT OF PATIENT CARE PER NURSING PROTOCOL Performed By: #### L 501.080 ####[facility] [address] [place], [address] Bedside Glucoseon 09-16-2024 FINGERSTICK GLU 153 mg/dL High 74-106 [facility] Comment on above: Result Comment: OLGA GEMENT OF PATIENT CARE PER NURSING PROTOCOL Performed By: #### L 501.080 ####[facility] [address] [place], [address] FINGERSTICK GLU 177 mg/dL High 74-106 [facility] Comment on above: Result Comment: OLGA GEMENT OF PATIENT CARE PER NURSING PROTOCOL Performed By: #### L 501.080 ####[facility] [address] [place], [address] FINGERSTICK GLU 243 mg/dL High 74-106 [facility] Comment on above: Result Comment: OLGA GEMENT OF PATIENT CARE PER NURSING PROTOCOL Performed By: #### L 501.080 ####[facility] [address] [place], [address] FINGERSTICK GLU 130 mg/dL High 74-106 [facility] Comment on above: Result Comment: OLGA GEMENT OF PATIENT CARE PER NURSING PROTOCOL Performed By: #### L 501.080 ####[facility] [address] [place], [address] Basic Metabolic Profile (BMP )on 09-15-2024 BUN/CRE 18.8 RATIO Normal 10-20 [facility] Comment on above: Performed By: #### L 501.5200, L500.2500 ####[facility] [address] [place], [address] CA,Total 9.1 mg/dL Normal 8.5-10.1 [facility] Comment on above: Performed By: #### L 501.5200, L500.2500 ####[facility] [address] [place], [address] Chloride [Moles/Vol] 106 mmol/L Normal 98-107 [facility] Comment on above: Performed By: #### L 501.5200, L500.2500 ####[facility] [address] [place], [address] CO2 [Moles/Vol] 26.0 mmol/L Normal 21.0-32.0 [facility] Comment on above: Performed By: #### L 501.5200, L500.2500 ####[facility] [address] [place], [address] Creatinine [Mass/Vol] 0.80 mg/dL Normal 0.55-1.02 [facility] Comment on above: Result Comment: The validity of the calculated GFR GFRAA in patients over70 years has not been determined. Clinical correlation isessential. Performed By: #### L 501.5200, L500.2500 ####[facility] [address] [place], [address] ECRCL 48.73 ml/min Normal [facility] Comment on above: Performed By: #### L 501.5200, L500.2500 ####[facility] [address] [place], [address] EST GFR - AA 88 mL/min Normal >60 [facility] Comment on above: Result Comment: Afri can Liberian GFR Calc Performed By: #### L 501.5200, L500.2500 ####[facility] [address] [place], [address] GAP 8 Normal 5-15 [facility] Comment on above: Performed By: #### L 501.5200, L500.2500 ####[facility] [address] [place], [address] GFR/1.73 sq M.predicted among non-blacks MDRD (S/P/Bld) [Vol rate/Area] 73 mL/min/{1.73_m2} Normal >60 [facility] Comment on above: Result Comment: Non- GFR Calc Performed By: #### L 501.5200, L500.2500 ####[facility] [address] [place], [address] Glucose [Mass/Vol] 119 mg/dL High 74-106 [facility] Comment on above: Result Comment: Fast ing Glucose result from 100 to 125 mg/dLsuggests IMPAIRED HOMEOSTASIS per A.D.A. criteria. Performed By: #### L 501.5200, L500.2500 ####[facility] [address] [place], [address] Potassium [Moles/Vol] 4.2 mmol/L Normal 3.5-5.1 [facility] Comment on above: Performed By: #### L 501.5200, L500.2500 ####[facility] [address] [place], [address] Sodium [Moles/Vol] 140 mmol/L Normal 136-145 [facility] Comment on above: Performed By: #### L 501.5200, L500.2500 ####[facility] [address] [place], [address] Urea nitrogen [Mass/Vol] 15 mg/dL Normal 7-18 [facility] Comment on above: Performed By: #### L 501.5200, L500.2500 ####[facility] [address] [place], [address] Bedside Glucoseon 09-15-2024 FINGERSTICK GLU 185 mg/dL High 74-106 [facility] Comment on above: Result Comment: OLGA GEMENT OF PATIENT CARE PER NURSING PROTOCOL Performed By: #### L 501.080 ####[facility] [address] [place], [address] FINGERSTICK GLU 105 mg/dL Normal 74-106 [facility] Comment on above: Result Comment: OLGA GEMENT OF PATIENT CARE PER NURSING PROTOCOL Performed By: #### L 501.080 ####[facility] [address] [place], [address] FINGERSTICK GLU 185 mg/dL High 74-106 [facility] Comment on above: Result Comment: OLGA GEMENT OF PATIENT CARE PER NURSING PROTOCOL Performed By: #### L 501.080 ####[facility] [address] [place], [address] FINGERSTICK GLU 123 mg/dL High 74-106 [facility] Comment on above: Result Comment: OLGA GEMENT OF PATIENT CARE PER NURSING PROTOCOL Performed By: #### L 501.080 ####[facility] [address] [place], [address] HH, Hemoglobin AND Hematocri ton 09-15-2024 Hematocrit (Bld) [Volume fraction] 35.7 % Low 37-47 [facility] Comment on above: Performed By: #### L 100.0600 ####[facility] [address] [place], [address] Hemoglobin (Bld) [Mass/Vol] 12.0 g/dL Normal 12.0-15.0 [facility] Comment on above: Performed By: #### L 100.0600 ####[facility] [address] [place], [address] Magnesiumon 09-15-2024 Magnesium [Mass/Vol] 1.9 mg/dL Normal 1.6-2.6 [facility] Comment on above: Performed By: #### L 501.5200, L500.2500 ####[facility] [address] [place], [address] Bedside Glucoseon 09-14-2024 FINGERSTICK GLU 203 mg/dL High 74-106 [facility] Comment on above: Result Comment: OLGA GEMENT OF PATIENT CARE PER NURSING PROTOCOL Performed By: #### L 501.080 ####[facility] [address] [place], [address] FINGERSTICK GLU 92 mg/dL Normal 74-106 [facility] Comment on above: Result Comment: OLGA GEMENT OF PATIENT CARE PER NURSING PROTOCOL Performed By: #### L 501.080 ####[facility] [address] [place], [address] FINGERSTICK GLU 102 mg/dL Normal 74-106 [facility] Comment on above: Result Comment: OLGA GEMENT OF PATIENT CARE PER NURSING PROTOCOL Performed By: #### L 501.080 ####[facility] [address] [place], [address] FINGERSTICK GLU 221 mg/dL High 74-106 [facility] Comment on above: Result Comment: OLGA GEMENT OF PATIENT CARE PER NURSING PROTOCOL Performed By: #### L 501.080 ####[facility] [address] [place], [address] FINGERSTICK GLU 103 mg/dL Normal 74-106 [facility] Comment on above: Result Comment: OLGA GEMENT OF PATIENT CARE PER NURSING PROTOCOL Performed By: #### L 501.080 ####[facility] [address] [place], [address] Bedside Glucoseon 09-13-2024 FINGERSTICK GLU 144 mg/dL High 74-106 [facility] Comment on above: Result Comment: OLGA GEMENT OF PATIENT CARE PER NURSING PROTOCOL Performed By: #### L 501.080 ####[facility] [address] [place], [address] FINGERSTICK GLU 134 mg/dL High 74-106 [facility] Comment on above: Result Comment: OLGA GEMENT OF PATIENT CARE PER NURSING PROTOCOL Performed By: #### L 501.080 ####[facility] [address] [place], [address] FINGERSTICK GLU 143 mg/dL High 74-106 [facility] Comment on above: Result Comment: OLGA GEMENT OF PATIENT CARE PER NURSING PROTOCOL Performed By: #### L 501.080 ####[facility] [address] [place], [address] FINGERSTICK GLU 155 mg/dL High 74-106 [facility] Comment on above: Result Comment: OLGA GEMENT OF PATIENT CARE PER NURSING PROTOCOL Performed By: #### L 501.080 ####[facility] [address] [place], [address] Bedside Glucoseon 09-12-2024 FINGERSTICK GLU 90 mg/dL Normal 74-106 [facility] Comment on above: Result Comment: OLGA GEMENT OF PATIENT CARE PER NURSING PROTOCOL Performed By: #### L 501.080 ####[facility] [address] [place], [address] FINGERSTICK GLU 77 mg/dL Normal 74-106 [facility] Comment on above: Result Comment: OLGA GEMENT OF PATIENT CARE PER NURSING PROTOCOL Performed By: #### L 501.080 ####[facility] [address] [place], [address] FINGERSTICK GLU 98 mg/dL Normal 74-106 [facility] Comment on above: Result Comment: OLGA GEMENT OF PATIENT CARE PER NURSING PROTOCOL Performed By: #### L 501.080 ####[facility] [facility] [address] [place], [address] FINGERSTICK GLU 144 mg/dL High 74-106 [facility] Comment on above: Result Comment: OLGA GEMENT OF PATIENT CARE PER NURSING PROTOCOL Performed By: #### L 501.080 ####[facility] [address] [place], [address] FINGERSTICK GLU 137 mg/dL High 74-106 [facility] Comment on above: Result Comment: OLGA JASON OF PATIENT CARE PER NURSING PROTOCOL Performed By: #### L 501.080 ####[facility] [address] [place], [address] Metanephrine Frac 24 HR URon 09-12-2024 Metaneph,UR 24H 147 ug/24 hr Normal 36-209 [facility] Comment on above: Order Comment: Test( s) 876541-Nahcvlhqvjbxphw, Ur; 649491-Ycpivpktxmpd, Urwas developed and its performance characteristicsdetermined by [facility]. It has not been cleared or approvedby the Food and Drug Administration. Result Comment: Perf ormed at: [facility] [address] [id number] Director: Toni Galicia MD, Phone: [phone] Performed By: #### L 3600.1100 ####[facility] [address] [place], [address] Metanephrines,U 64 ug/L Normal Undefined [facility] Comment on above: Order Comment: Test( s) 651905-Tlxqlujdsqwvlsk, Ur; 171775-Ozdwupbwkzop, Urwas developed and its performance characteristicsdetermined by [facility]. It has not been cleared or approvedby the Food and Drug Administration. Performed By: #### L 3600.1100 ####[facility] [address] [place], [address] Normetan,UR 24h 421 ug/24 hr Normal 131-612 [facility] Comment on above: Order Comment: Test( s) 874551-Ttywftoiwumddri, Ur; 178110-Wzgcbfyhtkkc, Urwas developed and its performance characteristicsdetermined by [facility]. It has not been cleared or approvedby the Food and Drug Administration. Performed By: #### L 3600.1100 ####[facility] [address] [place], [address] Normetanephrine 183 ug/L Normal Undefined [facility] Comment on above: Order Comment: Test( s) 159423-Uxinjibwxystmex, Ur; 459712-Ykooinithkjq, Urwas developed and its performance characteristicsdetermined by [facility]. It has not been cleared or approvedby the Food and Drug Administration. Performed By: #### L 3600.1100 ####[facility] [address] [place], [address] Bedside Glucoseon 09-11-2024 FINGERSTICK GLU 228 mg/dL High [address] [place] [address] Comment on above: Result Comment: LOGA GEMENT OF PATIENT CARE PER NURSING PROTOCOL Performed By: #### L 501.080 ####[facility] [address] [place], [address] FINGERSTICK GLU 130 mg/dL High [address] [place] [address] Comment on above: Result Comment: OLGA GEMENT OF PATIENT CARE PER NURSING PROTOCOL Performed By: #### L 501.080 ####[facility] [address] [place], [address] FINGERSTICK GLU 149 mg/dL High [address] [place] [address] Comment on above: Result Comment: OLGA GEMENT OF PATIENT CARE PER NURSING PROTOCOL Performed By: #### L 501.080 ####[facility] [address] [place], [address] FINGERSTICK GLU 184 mg/dL High [address] [place] [address] Comment on above: Result Comment: OLGA GEMENT OF PATIENT CARE PER NURSING PROTOCOL Performed By: #### L 501.080 ####[facility] [address] [place], [address] Catecholamines, 24 URon -3 Dopamine, Urine 66 ug/L Normal Undefined [facility] Comment on above: Order Comment: Test( s) 599144-Ufscvfqlfxq, Urine; 550204-Hnpsamqumlfuqf, Ur; 537848-Kshgcmxj, Urinewas developed and its performance characteristicsdetermined by [facility]. It has not been cleared or approvedby the Food and Drug Administration. Performed By: #### L 3600.0150 ####[facility] [address] [place], [place], [address] Dopamine,U,24HR 152 ug/24 hr Normal 0-510 [facility] Comment on above: Order Comment: Test( s) 461349-Bjmvoikkqsw, Urine; 590356-Ivyhgjfzunzwbm, Ur; 803592-Gkzgfeyw, Urinewas developed and its performance characteristicsdetermined by [facility]. It has not been cleared or approvedby the Food and Drug Administration. Result Comment: Perf ormed at: [address] [id number] Director: Toni Galicia MD, Phone: [phone] TESTING PERFORMED AT [facility]. ORIGINAL REPORT ON FILE IN LAB CONTAINS ADDITIONAL TEST SITE INFORMATION. Performed By: #### L 3600.0150 ####[facility] [address] [place], [place], [address] Epineph.,U,24HR 9 ug/24 hr Normal 0-20 [facility] Comment on above: Order Comment: Test( s) 194449-Fmcxcnkijsc, Urine; 032001-Gxkbonwhitzyfs, Ur; 248435-Yfcmlwbe, Urinewas developed and its performance characteristicsdetermined by [facility]. It has not been cleared or approvedby the Food and Drug Administration. Performed By: #### L 3600.0150 ####[facility] [address] [place], [place], [address](507) Epinephrine, U 4 ug/L Normal Undefined [facility] Comment on above: Order Comment: Test( s) 029729-Ejgpdeinmon, Urine; 480469-Zuqzjtaunlqurn, Ur; 892683-Efrmvdkh, Urinewas developed and its performance characteristicsdetermined by [facility]. It has not been cleared or approvedby the Food and Drug Administration. Performed By: #### L 3600.0150 ####[facility] [address] [place], [address] Norepin.,U,24HR 64 ug/24 hr Normal 0-135 [facility] Comment on above: Order Comment: Test( s) 654703-Lddhddgvgfz, Urine; 478932-Mztlbhftocgbhq, Ur; 864657-Zeoflhwv, Urinewas developed and its performance characteristicsdetermined by [facility]. It has not been cleared or approvedby the Food and Drug Administration. Performed By: #### L 3600.0150 ####[facility] [address] [place], [address] Norepinephrin,U 28 ug/L Normal Undefined [facility] Comment on above: Order Comment: Test( s) 062905-Ywacvmohdvf, Urine; 426083-Ljrwrrmhouzjff, Ur; 670996-Xfdsqoji, Urinewas developed and its performance characteristicsdetermined by [facility]. It has not been cleared or approvedby the Food and Drug Administration. Performed By: #### L 3600.0150 ####[facility] [address] [place], [address] Bedside Glucoseon 09-10-2024 FINGERSTICK GLU 133 mg/dL High 74-106 [facility] Comment on above: Result Comment: OLGA GEMENT OF PATIENT CARE PER NURSING PROTOCOL Performed By: #### L 501.080 ####[facility] [address] [place], [address] FINGERSTICK GLU 81 mg/dL Normal 74-106 [facility] Comment on above: Result Comment: OLGA GEMENT OF PATIENT CARE PER NURSING PROTOCOL Performed By: #### L 501.080 ####[facility] [address] [place], [address] FINGERSTICK GLU 57 mg/dL Low 74-106 [facility] Comment on above: Result Comment: OLGA GEMENT OF PATIENT CARE PER NURSING PROTOCOL Performed By: #### L 501.080 ####[facility] [address] [place], [address] FINGERSTICK GLU 208 mg/dL High 74-106 [facility] Comment on above: Result Comment: OLGA GEMENT OF PATIENT CARE PER NURSING PROTOCOL Performed By: #### L 501.080 ####[facility] [address] [place], [address] FINGERSTICK GLU 151 mg/dL High 74-106 [facility] Comment on above: Result Comment: OLGA GEMENT OF PATIENT CARE PER NURSING PROTOCOL Performed By: #### L 501.080 ####[facility] [address] [place], [address] Urine Cultureon 09-10-2024 URC Normal [facility] Comment on above: Performed By: #### M 100.2200 ####[facility] [address] [place], [address] Wound Cultureon 09-10-2024 WC Normal [facility] Comment on above: Performed By: #### M 100.3000, M100.2000 ####[facility] [address] [place], [address] Bedside Glucoseon 09-09-2024 FINGERSTICK GLU 157 mg/dL High 74-106 [facility] Comment on above: Result Comment: OLGA GEMENT OF PATIENT CARE PER NURSING PROTOCOL Performed By: #### L 501.080 ####[facility] [address] [place], [address] FINGERSTICK GLU 50 mg/dL Low 74-106 [facility] Comment on above: Result Comment: OLGA GEMENT OF PATIENT CARE PER NURSING PROTOCOL Performed By: #### L 501.080 ####[facility] [address] [place], [address] FINGERSTICK GLU 103 mg/dL Normal 74-106 [facility] Comment on above: Result Comment: OLGA GEMENT OF PATIENT CARE PER NURSING PROTOCOL Performed By: #### L 501.080 ####[facility] [address] [place], [address] FINGERSTICK GLU 181 mg/dL High 74-106 [facility] Comment on above: Result Comment: OLGA GEMENT OF PATIENT CARE PER NURSING PROTOCOL Performed By: #### L 501.080 ####[facility] [address] [place], [address] FINGERSTICK GLU 99 mg/dL Normal 74-106 [facility] Comment on above: Result Comment: OLGA GEMENT OF PATIENT CARE PER NURSING PROTOCOL Performed By: #### L 501.080 ####[facility] [address] [place], [address] FINGERSTICK GLU 245 mg/dL High 74-106 [facility] Comment on above: Result Comment: OLGA GEMENT OF PATIENT CARE PER NURSING PROTOCOL Performed By: #### L 501.080 ####[facility] [address] [place], [address] FINGERSTICK GLU 121 mg/dL High 74-106 [facility] Comment on above: Result Comment: OLGA GEMENT OF PATIENT CARE PER NURSING PROTOCOL Performed By: #### L 501.080 ####[facility] [address] [place], [address] Basic Metabolic Profile (BMP )on 09-08-2024 BUN/CRE 20.7 RATIO High 10-20 [facility] Comment on above: Performed By: #### L 501.2300, L100.0500, L500.2500, L501.5200 ####[facility] [address] [place], [address] CA,Total 9.6 mg/dL Normal 8.5-10.1 [facility] Comment on above: Performed By: #### L 501.2300, L100.0500, L500.2500, L501.5200 ####[facility] [address] [place], [address] Chloride [Moles/Vol] 102 mmol/L Normal 98-107 [facility] Comment on above: Performed By: #### L 501.2300, L100.0500, L500.2500, L501.5200 ####[facility] [address] [place], [address] CO2 [Moles/Vol] 26.0 mmol/L Normal 21.0-32.0 [facility] Comment on above: Performed By: #### L 501.2300, L100.0500, L500.2500, L501.5200 ####[facility] [address] [place], [address] Creatinine [Mass/Vol] 0.82 mg/dL Normal 0.55-1.02 [facility] Comment on above: Result Comment: The validity of the calculated GFR GFRAA in patients over70 years has not been determined. Clinical correlation isessential. Performed By: #### L 501.2300, L100.0500, L500.2500, L501.5200 ####[facility] [address] [place], [address] ECRCL 47.91 ml/min Normal [facility] Comment on above: Performed By: #### L 501.2300, L100.0500, L500.2500, L501.5200 ####[facility] [address] [place], [address] EST GFR - AA 86 mL/min Normal >60 [facility] Comment on above: Result Comment: Afri can Liberian GFR Calc Performed By: #### L 501.2300, L100.0500, L500.2500, L501.5200 ####[facility] [address] [place], [address] GAP 10 Normal 5-15 [facility] Comment on above: Performed By: #### L 501.2300, L100.0500, L500.2500, L501.5200 ####[facility] [address] [place], [address] GFR/1.73 sq M.predicted among non-blacks MDRD (S/P/Bld) [Vol rate/Area] 71 mL/min/{1.73_m2} Normal >60 [facility] Comment on above: Result Comment: Non- GFR Calc Performed By: #### L 501.2300, L100.0500, L500.2500, L501.5200 ####[facility] [address] [place], [address] Glucose [Mass/Vol] 188 mg/dL High 74-106 [facility] Comment on above: Result Comment: Fast ing Glucose result greater than or equal to 126 mg/dLsuggests DIABETES MELLITUS per A.D.A. criteria. Performed By: #### L 501.2300, L100.0500, L500.2500, L501.5200 ####[facility] [address] [place], [address] Potassium [Moles/Vol] 4.4 mmol/L Normal 3.5-5.1 [facility] Comment on above: Performed By: #### L 501.2300, L100.0500, L500.2500, L501.5200 ####[facility] [address] [place], [address] Sodium [Moles/Vol] 138 mmol/L Normal 136-145 [facility] Comment on above: Performed By: #### L 501.2300, L100.0500, L500.2500, L501.5200 ####[facility] [address] [place], [address] Urea nitrogen [Mass/Vol] 17 mg/dL Normal 7-18 [facility] Comment on above: Performed By: #### L 501.2300, L100.0500, L500.2500, L501.5200 ####[facility] [address] [place], [address] Bedside Glucoseon 09-08-2024 FINGERSTICK GLU 182 mg/dL High 74-106 [facility] Comment on above: Result Comment: OLGA GEMENT OF PATIENT CARE PER NURSING PROTOCOL Performed By: #### L 501.080 ####[facility] [address] [place], [address] FINGERSTICK GLU 260 mg/dL High 74-106 [facility] Comment on above: Result Comment: OLGA GEMENT OF PATIENT CARE PER NURSING PROTOCOL Performed By: #### L 501.080 ####[facility] [address] [place], [address] FINGERSTICK GLU 265 mg/dL High 74-106 [facility] Comment on above: Result Comment: OLGA GEMENT OF PATIENT CARE PER NURSING PROTOCOL Performed By: #### L 501.080 ####[facility] [address] [place], [address] FINGERSTICK GLU 205 mg/dL High 74-106 [facility] Comment on above: Result Comment: OLGA GEMENT OF PATIENT CARE PER NURSING PROTOCOL Performed By: #### L 501.080 ####[facility] [address] [place], [address] FINGERSTICK GLU 165 mg/dL High 74-106 [facility] Comment on above: Result Comment: OLGA GEMENT OF PATIENT CARE PER NURSING PROTOCOL Performed By: #### L 501.080 ####[facility] [address] [place], [address] CBC-Complete Blood Cnt No Di ffon 09-08-2024 Erythrocyte distribution width (RBC) [Ratio] 13.2 % Normal 11.6-14.6 [facility] Comment on above: Performed By: #### L 501.2300, L100.0500, L500.2500, L501.5200 ####[facility] [address] [place], [address] Hematocrit (Bld) [Volume fraction] 36.2 % Low 37-47 [facility] Comment on above: Performed By: #### L 501.2300, L100.0500, L500.2500, L501.5200 ####[facility] [address] [place], [address] Hemoglobin (Bld) [Mass/Vol] 12.1 g/dL Normal 12.0-15.0 [facility] Comment on above: Performed By: #### L 501.2300, L100.0500, L500.2500, L501.5200 ####[facility] [address] [place], [address] MCH (RBC) [Entitic mass] 31.3 pg Normal 27.0-32.0 [facility] Comment on above: Performed By: #### L 501.2300, L100.0500, L500.2500, L501.5200 ####[facility] [address] [place], [address] MCHC (RBC) [Mass/Vol] 33.4 g/dL Normal 32-36 [facility] Comment on above: Performed By: #### L 501.2300, L100.0500, L500.2500, L501.5200 ####[facility] [address] [place], [address] MCV (RBC) [Entitic vol] 93.8 fL Normal 81-99 [facility] Comment on above: Performed By: #### L 501.2300, L100.0500, L500.2500, L501.5200 ####[facility] [address] [place], [address] Platelet mean volume (Bld) [Entitic vol] 9.6 fL Normal 6.2-12.0 [facility] Comment on above: Performed By: #### L 501.2300, L100.0500, L500.2500, L501.5200 ####[facility] [address] [place], [address] Platelets (Bld) [#/Vol] 312 10*3/uL Normal 150-450 [facility] Comment on above: Performed By: #### L 501.2300, L100.0500, L500.2500, L501.5200 ####[facility] [address] [place], [address] RBC (Bld) [#/Vol] 3.86 10*6/uL Low 4.2-5.4 [facility] Comment on above: Performed By: #### L 501.2300, L100.0500, L500.2500, L501.5200 ####[facility] [address] [place], [address] RDW SD 44.8 fl High 35.1-43.9 [facility] Comment on above: Performed By: #### L 501.2300, L100.0500, L500.2500, L501.5200 ####[facility] [address] [place], [address] WBC (Bld) [#/Vol] 9.6 10*3/uL Normal 4.4-11.0 [facility] Comment on above: Performed By: #### L 501.2300, L100.0500, L500.2500, L501.5200 ####[facility] [address] [place], [address] Gram Stainon 09-08-2024 GS peg site Gram Stain 4+ Gram negative rods No Epithelial cells 1+ Red Blood Cells Normal [facility] Comment on above: Performed By: #### M 100.3000, M100.2000 ####[facility] [address] [place], [address] Magnesiumon 09-08-2024 Magnesium [Mass/Vol] 1.8 mg/dL Normal 1.6-2.6 [facility] Comment on above: Performed By: #### L 501.2300, L100.0500, L500.2500, L501.5200 ####[facility] [address] [place], [address] Phosphoruson 09-08-2024 Phosphate [Mass/Vol] 4.8 mg/dL Normal 2.5-4.9 [facility] Comment on above: Performed By: #### L 501.2300, L100.0500, L500.2500, L501.5200 ####[facility] [address] [place], [address] Urinalysis, Completeon 09-08 RBC 0-5 SEEN Normal 0-5 [facility] Comment on above: Order Comment: KEYANA TER SPECIMEN Performed By: #### L 400.0001 ####[facility] [address] [place], [address] BACTERIA 2+ /hpf Normal None Seen [facility] Comment on above: Order Comment: KEYANA TER SPECIMEN Performed By: #### L 400.0001 ####[facility] [address] [place], [address] WBC >100 SEEN Normal 0-5 [facility] Comment on above: Order Comment: KEYANA TER SPECIMEN Performed By: #### L 400.0001 ####[facility] [address] [place], [address] EPI,SQUAMOUS 0 SEEN Normal 5-10 [facility] Comment on above: Order Comment: KEYANA TER SPECIMEN Performed By: #### L 400.0001 ####[facility] [address] [place], [address] Mucus Ql (Urine sed) 0 SEEN Normal [facility] Comment on above: Order Comment: KEYANA TER SPECIMEN Performed By: #### L 400.0001 ####[facility] [address] [place], [address] Bedside Glucoseon 09-07-2024 FINGERSTICK GLU 244 mg/dL High 74-106 [facility] Comment on above: Result Comment: OLGA GEMENT OF PATIENT CARE PER NURSING PROTOCOL Performed By: #### L 501.080 ####[facility] [address] [place], [address] FINGERSTICK GLU 228 mg/dL High 74-106 [facility] Comment on above: Result Comment: OLGA GEMENT OF PATIENT CARE PER NURSING PROTOCOL Performed By: #### L 501.080 ####[facility] [address] [place], [address] FINGERSTICK GLU 278 mg/dL High 74-106 [facility] Comment on above: Result Comment: OLGA GEMENT OF PATIENT CARE PER NURSING PROTOCOL Performed By: #### L 501.080 ####[facility] [address] [place], [address] FINGERSTICK GLU 215 mg/dL High 74-106 [facility] Comment on above: Result Comment: OLGA GEMENT OF PATIENT CARE PER NURSING PROTOCOL Performed By: #### L 501.080 ####[facility] [address] [place], [address] FINGERSTICK GLU 277 mg/dL High 74-106 [facility] Comment on above: Result Comment: OLGA GEMENT OF PATIENT CARE PER NURSING PROTOCOL Performed By: #### L 501.080 ####[facility] [address] [place], [address] FINGERSTICK GLU 232 mg/dL High 74-106 [facility] Comment on above: Result Comment: OLGA GEMENT OF PATIENT CARE PER NURSING PROTOCOL Performed By: #### L 501.080 ####[facility] [address] [place], [address] FINGERSTICK GLU 114 mg/dL High 74-106 [facility] Comment on above: Result Comment: OLGA GEMENT OF PATIENT CARE PER NURSING PROTOCOL Performed By: #### L 501.080 ####[facility] [address] [place], [address] Bedside Glucoseon 09-06-2024 FINGERSTICK GLU 197 mg/dL High -106 [facility] Comment on above: Result Comment: OLGA GEMENT OF PATIENT CARE PER NURSING PROTOCOL Performed By: #### L 501.080 ####[facility] [address] [place], [address] FINGERSTICK GLU 221 mg/dL High -106 [facility] Comment on above: Result Comment: OLGA GEMENT OF PATIENT CARE PER NURSING PROTOCOL Performed By: #### L 501.080 ####[facility] [address] [place], [address] FINGERSTICK GLU 238 mg/dL High -106 [facility] Comment on above: Result Comment: OLGA GEMENT OF PATIENT CARE PER NURSING PROTOCOL Performed By: #### L 501.080 ####[facility] [address] [place], [address] FINGERSTICK GLU 209 mg/dL High -106 [facility] Comment on above: Result Comment: OLGA GEMENT OF PATIENT CARE PER NURSING PROTOCOL Performed By: #### L 501.080 ####[facility] [address] [place], [address] FINGERSTICK GLU 171 mg/dL High 74-106 [facility] Comment on above: Result Comment: OLGA GOMEZ OF PATIENT CARE PER NURSING PROTOCOL Performed By: #### L 501.080 ####[facility] [address] [place], [address] Basic Metabolic Profile (BMP )on 09-05-2024 BUN Normal 7-18 [facility] Comment on above: Result Comment: Canc elled via OM: Order cancelled - Patient discharged Performed By: #### L 500.2500, L100.0100 ####[facility] [address] [place], [address] BUN/CRE Normal 10-20 [facility] Comment on above: Result Comment: Canc elled via OM: Order cancelled - Patient discharged Performed By: #### L 500.2500, L100.0100 ####[facility] [address] [place], [address] CA,Total Normal 8.5-10.1 [facility] Comment on above: Result Comment: Canc elled via OM: Order cancelled - Patient discharged Performed By: #### L 500.2500, L100.0100 ####[facility] [address] [place], [address] CL Normal 98-107 [facility] Comment on above: Result Comment: Canc elled via OM: Order cancelled - Patient discharged Performed By: #### L 500.2500, L100.0100 ####[facility] [address] [place], [address] CO2 Normal 21.0-32.0 [facility] Comment on above: Result Comment: Canc elled via OM: Order cancelled - Patient discharged Performed By: #### L 500.2500, L100.0100 ####[facility] [address] [place], [address] CREAT,SERUM Normal 0.55-1.02 [facility] Comment on above: Result Comment: Canc elled via OM: Order cancelled - Patient discharged Performed By: #### L 500.2500, L100.0100 ####[facility] [address] [place], [address] EST GFR Normal >60 [facility] Comment on above: Result Comment: Canc elled via OM: Order cancelled - Patient discharged Performed By: #### L 500.2500, L100.0100 ####[facility] [address] [place], [address] EST GFR - AA Normal >60 [facility] Comment on above: Result Comment: Canc elled via OM: Order cancelled - Patient discharged Performed By: #### L 500.2500, L100.0100 ####[facility] [address] [place], [address] GAP Normal 5-15 [facility] Comment on above: Result Comment: Canc elled via OM: Order cancelled - Patient discharged Performed By: #### L 500.2500, L100.0100 ####[facility] [address] [place], [address] GLU Normal 74-106 [facility] Comment on above: Result Comment: Canc elled via OM: Order cancelled - Patient discharged Performed By: #### L 500.2500, L100.0100 ####[facility] [address] [place], [address] Potassium Normal 3.5-5.1 [facility] Comment on above: Result Comment: Canc elled via OM: Order cancelled - Patient discharged Performed By: #### L 500.2500, L100.0100 ####[facility] [address] [place], [address] Basic Metabolic Profile (BMP) Normal 136-145 [facility] Comment on above: Result Comment: Canc elled via OM: Order cancelled - Patient discharged Performed By: #### L 500.2500, L100.0100 ####[facility] [address] [place], [address] Bedside Glucoseon 09-05-2024 FINGERSTICK GLU 209 mg/dL High -106 [facility] Comment on above: Result Comment: OLGA GEMENT OF PATIENT CARE PER NURSING PROTOCOL Performed By: #### L 501.080 ####[facility] [address] [place], [address] FINGERSTICK GLU 265 mg/dL High [facility]106 [facility] Comment on above: Result Comment: OLGA GEMENT OF PATIENT CARE PER NURSING PROTOCOL Performed By: #### L 501.080 ####[facility] [address] [place], [address] FINGERSTICK GLU 203 mg/dL High [address] [place] [address] Comment on above: Result Comment: OLGA GEMENT OF PATIENT CARE PER NURSING PROTOCOL Performed By: #### L 501.080 ####[facility] [address] [place], [address] FINGERSTICK GLU 215 mg/dL High [facility]106 [facility] Comment on above: Result Comment: OLGA GEMENT OF PATIENT CARE PER NURSING PROTOCOL Performed By: #### L 501.080 ####[facility] [address] [place], [address] FINGERSTICK GLU 224 mg/dL High -106 [facility] Comment on above: Result Comment: OLGA GEMENT OF PATIENT CARE PER NURSING PROTOCOL Performed By: #### L 501.080 ####[facility] [address] [place], [address] CBC W/Diff, Automatedon 08-14 Absolute Neut Normal 2.0-7.7 [facility] Comment on above: Result Comment: Canc elled via OM: Order cancelled - Patient discharged Performed By: #### L 500.2500, L100.0100 ####[facility] [address] [place], [address] HCT Normal 37-47 [facility] Comment on above: Result Comment: Canc elled via OM: Order cancelled - Patient discharged Performed By: #### L 500.2500, L100.0100 ####[facility] [address] [place], [address] HGB Normal 12.0-15.0 [facility] Comment on above: Result Comment: Canc elled via OM: Order cancelled - Patient discharged Performed By: #### L 500.2500, L100.0100 ####[facility] [address] [place], [address] MCH Normal 27.0-32.0 [facility] Comment on above: Result Comment: Canc elled via OM: Order cancelled - Patient discharged Performed By: #### L 500.2500, L100.0100 ####[facility] [address] [place], [address] MCHC Normal 32-36 [facility] Comment on above: Result Comment: Canc elled via OM: Order cancelled - Patient discharged Performed By: #### L 500.2500, L100.0100 ####[facility] [address] [place], [address] MCV Normal 81-99 [facility] Comment on above: Result Comment: Canc elled via OM: Order cancelled - Patient discharged Performed By: #### L 500.2500, L100.0100 ####[facility] [address] [place], [address] NEUT% Normal 47-70 [facility] Comment on above: Result Comment: Canc elled via OM: Order cancelled - Patient discharged Performed By: #### L 500.2500, L100.0100 ####[facility] [address] [place], [address] PLT Normal 150-450 [facility] Comment on above: Result Comment: Canc elled via OM: Order cancelled - Patient discharged Performed By: #### L 500.2500, L100.0100 ####[facility] [address] [place], [address] RBC Normal 4.2-5.4 [facility] Comment on above: Result Comment: Canc elled via OM: Order cancelled - Patient discharged Performed By: #### L 500.2500, L100.0100 ####[facility] [address] [place], [address] RDW CV Normal 11.6-14.6 [facility] Comment on above: Result Comment: Canc elled via OM: Order cancelled - Patient discharged Performed By: #### L 500.2500, L100.0100 ####[facility] [address] [place], [address] RDW SD Normal 35.1-43.9 [facility] Comment on above: Result Comment: Canc elled via OM: Order cancelled - Patient discharged Performed By: #### L 500.2500, L100.0100 ####[facility] [address] [place], [address] WBC Normal 4.4-11.0 [facility] Comment on above: Result Comment: Canc elled via OM: Order cancelled - Patient discharged Performed By: #### L 500.2500, L100.0100 ####[facility] [address] [place], [address] Bedside Glucoseon 09-04-2024 FINGERSTICK GLU 233 mg/dL High 74-106 [facility] Comment on above: Result Comment: OLGA GOMEZ OF PATIENT CARE PER NURSING PROTOCOL Performed By: #### L 501.080 ####[facility] [address] [place], [address] FINGERSTICK GLU 366 mg/dL High 74-106 [facility] Comment on above: Result Comment: OLGA GEMENT OF PATIENT CARE PER NURSING PROTOCOL Performed By: #### L 501.080 ####[facility] [address] [place], [address] FINGERSTICK GLU 302 mg/dL High [address] [place] [address] Comment on above: Result Comment: OLGA GEMENT OF PATIENT CARE PER NURSING PROTOCOL Performed By: #### L 501.080 ####[facility] [address] [place], [address] FINGERSTICK GLU 344 mg/dL High [address] [place] [address] Comment on above: Result Comment: OLGA GEMENT OF PATIENT CARE PER NURSING PROTOCOL Performed By: #### L 501.080 ####[facility] [address] [place], [address] FINGERSTICK GLU 312 mg/dL [address] Comment on above: Result Comment: OLGA GEMENT OF PATIENT CARE PER NURSING PROTOCOL Performed By: #### L 501.080 ####[facility] [address] [place], [address] Bedside Glucoseon 09-03-2024 FINGERSTICK GLU 277 mg/dL [address] Comment on above: Result Comment: OLGA GEMENT OF PATIENT CARE PER NURSING PROTOCOL Performed By: #### L 501.080 ####[facility] [address] [place], [address] FINGERSTICK GLU 283 mg/dL [address] Comment on above: Result Comment: OLGA GEMENT OF PATIENT CARE PER NURSING PROTOCOL Performed By: #### L 501.080 ####[facility] [address] [place], [address] FINGERSTICK GLU 251 mg/dL High [address] [place] [address] Comment on above: Result Comment: OLGA GEMENT OF PATIENT CARE PER NURSING PROTOCOL Performed By: #### L 501.080 ####[facility] [address] [place], [address] FINGERSTICK GLU 234 mg/dL High 74-106 [facility] Comment on above: Result Comment: OLGA GEMENT OF PATIENT CARE PER NURSING PROTOCOL Performed By: #### L 501.080 ####[facility] [address] [place], [address] FINGERSTICK GLU 263 mg/dL High 74-106 [facility] Comment on above: Result Comment: OLGA GEMENT OF PATIENT CARE PER NURSING PROTOCOL Performed By: #### L 501.080 ####[facility] [address] [place], [address] Basic Metabolic Profile (BMP )on 09-02-2024 BUN/CRE 14.7 RATIO Normal 10-20 [facility] Comment on above: Performed By: #### L 100.0600, L500.2500 ####[facility] [address] [place], [address] CA,Total 9.3 mg/dL Normal 8.5-10.1 [facility] Comment on above: Performed By: #### L 100.0600, L500.2500 ####[facility] [address] [place], [address] Chloride [Moles/Vol] 105 mmol/L Normal 98-107 [facility] Comment on above: Performed By: #### L 100.0600, L500.2500 ####[facility] [address] [place], [address] CO2 [Moles/Vol] 24.0 mmol/L Normal 21.0-32.0 [facility] Comment on above: Performed By: #### L 100.0600, L500.2500 ####[facility] [address] [place], [address] Creatinine [Mass/Vol] 0.75 mg/dL Normal 0.55-1.02 [facility] Comment on above: Result Comment: The validity of the calculated GFR GFRAA in patients over70 years has not been determined. Clinical correlation isessential. Performed By: #### L 100.0600, L500.2500 ####[facility] [address] [place], [address] ECRCL 49.35 ml/min Normal [facility] Comment on above: Performed By: #### L 100.0600, L500.2500 ####[facility] [address] [place], [address] EST GFR - AA 96 mL/min Normal >60 [facility] Comment on above: Result Comment: Afri can Liberian GFR Calc Performed By: #### L 100.0600, L500.2500 ####[facility] [address] [place], [address] GAP 8 Normal 5-15 [facility] Comment on above: Performed By: #### L 100.0600, L500.2500 ####[facility] [address] [place], [address] GFR/1.73 sq M.predicted among non-blacks MDRD (S/P/Bld) [Vol rate/Area] 79 mL/min/{1.73_m2} Normal >60 [facility] Comment on above: Result Comment: Non- GFR Calc Performed By: #### L 100.0600, L500.2500 ####[facility] [address] [place], [address] Glucose [Mass/Vol] 380 mg/dL High 74-106 [facility] Comment on above: Result Comment: Gluc ose result greater than or equal to 200 mg/dLsuggests DIABETES MELLITUS per A.D.A. criteria. Performed By: #### L 100.0600, L500.2500 ####[facility] [address] [place], [address] Potassium [Moles/Vol] 3.9 mmol/L Normal 3.5-5.1 [facility] Comment on above: Performed By: #### L 100.0600, L500.2500 ####[facility] [address] [place], [address] Sodium [Moles/Vol] 137 mmol/L Normal 136-145 [facility] Comment on above: Performed By: #### L 100.0600, L500.2500 ####[facility] [address] [place], [address] Urea nitrogen [Mass/Vol] 11 mg/dL Normal 7-18 [facility] Comment on above: Performed By: #### L 100.0600, L500.2500 ####[facility] [address] [place], [address] Bedside Glucoseon 09-02-2024 FINGERSTICK GLU 261 mg/dL High 74-106 [facility] Comment on above: Result Comment: OLGA GEMENT OF PATIENT CARE PER NURSING PROTOCOL Performed By: #### L 501.080 ####[facility] [address] [place], [address] FINGERSTICK GLU 320 mg/dL High 74-106 [facility] Comment on above: Result Comment: OLGA GEMENT OF PATIENT CARE PER NURSING PROTOCOL Performed By: #### L 501.080 ####[facility] [address] [place], [address] FINGERSTICK GLU 338 mg/dL High 74-106 [facility] Comment on above: Result Comment: OLGA GEMENT OF PATIENT CARE PER NURSING PROTOCOL Performed By: #### L 501.080 ####[facility] [address] [place], [address] FINGERSTICK GLU 368 mg/dL High 74-106 [facility] Comment on above: Result Comment: OLGA GEMENT OF PATIENT CARE PER NURSING PROTOCOL Performed By: #### L 501.080 ####[facility] [address] [place], [address] FINGERSTICK GLU 287 mg/dL High 74-106 [facility] Comment on above: Result Comment: OLGA GEMENT OF PATIENT CARE PER NURSING PROTOCOL Performed By: #### L 501.080 ####[facility] [address] [place], [address] HH, Hemoglobin AND Hematocri ton 09-02-2024 Hematocrit (Bld) [Volume fraction] 36.7 % Low 37-47 [facility] Comment on above: Performed By: #### L 100.0600, L500.2500 ####[facility] [address] [place], [address] Hemoglobin (Bld) [Mass/Vol] 12.7 g/dL Normal 12.0-15.0 [facility] Comment on above: Performed By: #### L 100.0600, L500.2500 ####[facility] [address] [place], [address] Urine Cultureon 09-02-2024 URC Yeast, not Shanna a lbicans [place] Count 25,000-50,000 Normal [facility] Comment on above: Performed By: #### M 100.2200 ####[facility] [address] [place], [address] Bedside Glucoseon 09-01-2024 FINGERSTICK GLU 301 mg/dL High 74-106 [facility] Comment on above: Result Comment: OLGA GEMENT OF PATIENT CARE PER NURSING PROTOCOL Performed By: #### L 501.080 ####[facility] [address], [address] FINGERSTICK GLU 349 mg/dL High 74-106 [facility] Comment on above: Result Comment: OLGA GEMENT OF PATIENT CARE PER NURSING PROTOCOL Performed By: #### L 501.080 ####[facility] [address] [place], [address] FINGERSTICK GLU 240 mg/dL High 74-106 [facility] Comment on above: Result Comment: OLGA GEMENT OF PATIENT CARE PER NURSING PROTOCOL Performed By: #### L 501.080 ####[facility] [address] [place], [address] FINGERSTICK GLU 333 mg/dL High [address] [facility] Comment on above: Result Comment: OLGA GEMENT OF PATIENT CARE PER NURSING PROTOCOL Performed By: #### L 501.080 ####[facility] [address] [place], [address] FINGERSTICK GLU 222 mg/dL High -106 [facility] Comment on above: Result Comment: OLGA GEMENT OF PATIENT CARE PER NURSING PROTOCOL Performed By: #### L 501.080 ####[facility] [address] [place], [address] FINGERSTICK GLU 268 mg/dL High [address] [place] [address] Comment on above: Result Comment: OLGA GEMENT OF PATIENT CARE PER NURSING PROTOCOL Performed By: #### L 501.080 ####[facility] [address] [place], [address] Blood Gases by [facility] 025 Base excess Calc (Bld) [Moles/Vol] -3 mmol/L Low -2 to +2 [facility] Comment on above: Performed By: #### L 9000.0800 ####[facility] [address] [place], [address] Blood Gas Type ART Normal [facility] Comment on above: Performed By: #### L 9000.0800 ####[facility] [address] [place], [address] CO2 [Moles/Vol] 23 mmol/L Normal [facility] Comment on above: Performed By: #### L 9000.0800 ####[facility] [address] [place], [address] FI02 21.0 Normal [facility] Comment on above: Performed By: #### L 8999.08 ####[facility] [address] [place], [address] HCO3 (Bld) [Moles/Vol] 21.7 mmol/L Low 22-26 [facility] Comment on above: Performed By: #### L 8999.0800 ####[facility] [address] [place], [address] Mode Not entered [facility] Comment on above: Performed By: #### L 8999.0800 ####[facility] [address] [place], [address] O2 Delivery Dev Not entered [facility] Comment on above: Performed By: #### L 8999.0800 ####[facility] [address] [place], [address] pCO2 35.5 mmHg Normal 35-45 [facility] Comment on above: Performed By: #### L 8999.0800 ####[facility] [address] [place], [address] pH (Bld) 7.39 [pH] Normal 7.35-7.45 [facility] Comment on above: Performed By: #### L 8999.08 ####[facility] [address] [place], [address] PO2 69 mmHG Low 75-100 [facility] Comment on above: Performed By: #### L 8999.0800 ####[facility] [address] [place], [address] SITE L Brach Normal [facility] Comment on above: Performed By: #### L 8999.0800 ####[facility] [address] [place], [address] SO2 94 Low 95-99 [facility] Comment on above: Performed By: #### L 9000.0800 ####[facility] [address] [place], [address] Bedside Glucoseon 08-31-2024 FINGERSTICK GLU 222 mg/dL High 74-106 [facility] Comment on above: Result Comment: OLGA GEMENT OF PATIENT CARE PER NURSING PROTOCOL Performed By: #### L 501.080 ####[facility] [address] [place], [address] FINGERSTICK GLU 335 mg/dL High [address] [place] [address] Comment on above: Result Comment: OLGA GEMENT OF PATIENT CARE PER NURSING PROTOCOL Performed By: #### L 501.080 ####[facility] [address] [place], [address] FINGERSTICK GLU 284 mg/dL High -[address] [place] [address] Comment on above: Result Comment: OLGA GEMENT OF PATIENT CARE PER NURSING PROTOCOL Performed By: #### L 501.080 ####[facility] [address] [place], [address] Bedside Glucoseon 5 FINGERSTICK GLU 232 mg/dL High -[address] [place] [address] Comment on above: Result Comment: OLGA GEMENT OF PATIENT CARE PER NURSING PROTOCOL Performed By: #### L 501.080 ####[facility] [address] [place], [address] FINGERSTICK GLU 289 mg/dL High 74-106 [facility] Comment on above: Result Comment: OLGA GEMENT OF PATIENT CARE PER NURSING PROTOCOL Performed By: #### L 501.080 ####[facility] [address] [place], [address] FINGERSTICK GLU 251 mg/dL High -106 [facility] Comment on above: Result Comment: OLGA GEMENT OF PATIENT CARE PER NURSING PROTOCOL Performed By: #### L 501.080 ####[facility] [address] [place], [address] FINGERSTICK GLU 335 mg/dL High 74-106 [facility] Comment on above: Result Comment: OLGA GEMENT OF PATIENT CARE PER NURSING PROTOCOL Performed By: #### L 501.080 ####[facility] [address] [place], [address] FINGERSTICK GLU 310 mg/dL High 74-106 [facility] Comment on above: Result Comment: OLGA GEMENT OF PATIENT CARE PER NURSING PROTOCOL Performed By: #### L 501.080 ####[facility] [address] [place], [address] CBC W/Diff, Automatedon 08-13 Absolute Lymph 1.02 X10 3/uL Normal 0.83-4.51 [facility] Comment on above: Performed By: #### L 501.2300, L500.4050, L501.5200, L506.0400, L100.0100 ####[facility] [address] [place], [address] Absolute Neut 5.0 X10 3/uL Normal 2.0-7.7 [facility] Comment on above: Performed By: #### L 501.2300, L500.4050, L501.5200, L506.0400, L100.0100 ####[facility] [address] [place], [address] Basophils/100 WBC (Bld) 0.7 % Normal 0-1 [facility] Comment on above: Performed By: #### L 501.2300, L500.4050, L501.5200, L506.0400, L100.0100 ####[facility] [address] [place], [address] Eosinophils/100 WBC (Bld) 4.5 % Normal 0-5 [facility] Comment on above: Performed By: #### L 501.2300, L500.4050, L501.5200, L506.0400, L100.0100 ####[facility] [address] [place], [address] Erythrocyte distribution width (RBC) [Ratio] 13.4 % Normal 11.6-14.6 [facility] Comment on above: Performed By: #### L 501.2300, L500.4050, L501.5200, L506.0400, L100.0100 ####[facility] [address] [place], [address] Hematocrit (Bld) [Volume fraction] 32.3 % Low 37-47 [facility] Comment on above: Performed By: #### L 501.2300, L500.4050, L501.5200, L506.0400, L100.0100 ####[facility] [address] [place], [address] Hemoglobin (Bld) [Mass/Vol] 10.6 g/dL Low 12.0-15.0 [facility] Comment on above: Performed By: #### L 501.2300, L500.4050, L501.5200, L506.0400, L100.0100 ####[facility] [address] [place], [address] IG% 0.700 Normal 0.0-0.9 [facility] Comment on above: Result Comment: IG% - Immature Granulocytes (promyelocytes, myelocytes andmetamyelocytes) > 1% indicates that a LEFT SHIFT is Present. Performed By: #### L 501.2300, L500.4050, L501.5200, L506.0400, L100.0100 ####[facility] [address] [place], [address] Lymphocytes/100 WBC (Bld) 13.9 % Low 19-41 [facility] Comment on above: Performed By: #### L 501.2300, L500.4050, L501.5200, L506.0400, L100.0100 ####[facility] [address] [place], [address] MCH (RBC) [Entitic mass] 31.4 pg Normal 27.0-32.0 [facility] Comment on above: Performed By: #### L 501.2300, L500.4050, L501.5200, L506.0400, L100.0100 ####[facility] [address] [place], [address] MCHC (RBC) [Mass/Vol] 32.8 g/dL Normal 32-36 [facility] Comment on above: Performed By: #### L 501.2300, L500.4050, L501.5200, L506.0400, L100.0100 ####[facility] [address] [place], [address] MCV (RBC) [Entitic vol] 95.6 fL Normal 81-99 [facility] Comment on above: Performed By: #### L 501.2300, L500.4050, L501.5200, L506.0400, L100.0100 ####[facility] [address] [place], [address] Monocytes/100 WBC (Bld) 12.2 % High 0-10 [facility] Comment on above: Performed By: #### L 501.2300, L500.4050, L501.5200, L506.0400, L100.0100 ####[facility] [address] [place], [address] Neutrophils/100 WBC (Bld) 68.0 % Normal 47-70 [facility] Comment on above: Performed By: #### L 501.2300, L500.4050, L501.5200, L506.0400, L100.0100 ####[facility] [address] [place], [address] Nucleated RBC (Bld) [#/Vol] 0 10*3/uL Normal 0-5 [facility] Comment on above: Performed By: #### L 501.2300, L500.4050, L501.5200, L506.0400, L100.0100 ####[facility] [address] [place], [address] Platelet mean volume (Bld) [Entitic vol] 9.8 fL Normal 6.2-12.0 [facility] Comment on above: Performed By: #### L 501.2300, L500.4050, L501.5200, L506.0400, L100.0100 ####[facility] [address] [place], [address] Platelets (Bld) [#/Vol] 258 10*3/uL Normal 150-450 [facility] Comment on above: Performed By: #### L 501.2300, L500.4050, L501.5200, L506.0400, L100.0100 ####[facility] [address] [place], [address] RBC (Bld) [#/Vol] 3.38 10*6/uL Low 4.2-5.4 [facility] Comment on above: Performed By: #### L 501.2300, L500.4050, L501.5200, L506.0400, L100.0100 ####[facility] [address] [place], [address] RDW SD 46.3 fl High 35.1-43.9 [facility] Comment on above: Performed By: #### L 501.2300, L500.4050, L501.5200, L506.0400, L100.0100 ####[facility] [address] [place], [address] WBC (Bld) [#/Vol] 7.3 10*3/uL Normal 4.4-11.0 [facility] Comment on above: Performed By: #### L 501.2300, L500.4050, L501.5200, L506.0400, L100.0100 ####[facility] [address] [place], [address] Comprehensive Metabolic Prof ilon 08-30-2024 Albumin [Mass/Vol] 2.7 g/dL Low 3.2-5.0 [facility] Comment on above: Performed By: #### L 501.2300, L500.4050, L501.5200, L506.0400, L100.0100 ####[facility] [address] [place], [address] Albumin/Globulin [Mass ratio] 0.8 {ratio} Low 0.9-2.4 [facility] Comment on above: Performed By: #### L 501.2300, L500.4050, L501.5200, L506.0400, L100.0100 ####[facility] [address] [place], [address] ALK P 77 U/L Normal 45-117 [facility] Comment on above: Performed By: #### L 501.2300, L500.4050, L501.5200, L506.0400, L100.0100 ####[facility] [address] [place], [address] ALT [Catalytic activity/Vol] 18 U/L Normal 13-56 [facility] Comment on above: Performed By: #### L 501.2300, L500.4050, L501.5200, L506.0400, L100.0100 ####[facility] [address] [place], [address] AST [Catalytic activity/Vol] 12 U/L Low 15-37 [facility] Comment on above: Performed By: #### L 501.2300, L500.4050, L501.5200, L506.0400, L100.0100 ####[facility] [address] [place], [address] Bilirubin [Mass/Vol] 0.40 mg/dL Normal 0.20-1.00 [facility] Comment on above: Result Comment: For patients on eltrombopag therapy, use of Dimension [place] TBIL is not recommended. Performed By: #### L 501.2300, L500.4050, L501.5200, L506.0400, L100.0100 ####[facility] [address] [place], [address] BUN/CRE 31.3 RATIO High 10-20 [facility] Comment on above: Performed By: #### L 501.2300, L500.4050, L501.5200, L506.0400, L100.0100 ####[facility] [address] [place], [address] CA,Total 8.4 mg/dL Low 8.5-10.1 [facility] Comment on above: Performed By: #### L 501.2300, L500.4050, L501.5200, L506.0400, L100.0100 ####[facility] [address] [place], [address] Chloride [Moles/Vol] 110 mmol/L High 98-107 [facility] Comment on above: Performed By: #### L 501.2300, L500.4050, L501.5200, L506.0400, L100.0100 ####[facility] [address] [place], [address] CO2 [Moles/Vol] 19.0 mmol/L Low 21.0-32.0 [facility] Comment on above: Performed By: #### L 501.2300, L500.4050, L501.5200, L506.0400, L100.0100 ####[facility] [address] [place], [address] Creatinine [Mass/Vol] 0.67 mg/dL Normal 0.55-1.02 [facility] Comment on above: Result Comment: The validity of the calculated GFR GFRAA in patients over70 years has not been determined. Clinical correlation isessential. Performed By: #### L 501.2300, L500.4050, L501.5200, L506.0400, L100.0100 ####[facility] [address] [place], [address] ECRCL 49.33 ml/min Normal [facility] Comment on above: Performed By: #### L 501.2300, L500.4050, L501.5200, L506.0400, L100.0100 ####[facility] [address] [place], [address] EST GFR - AA 108 mL/min Normal >60 [facility] Comment on above: Result Comment: Afri can Liberian GFR Calc Performed By: #### L 501.2300, L500.4050, L501.5200, L506.0400, L100.0100 ####[facility] [address] [place], [address] GAP 8 Normal 5-15 [facility] Comment on above: Performed By: #### L 501.2300, L500.4050, L501.5200, L506.0400, L100.0100 ####[facility] [address] [place], [address] GFR/1.73 sq M.predicted among non-blacks MDRD (S/P/Bld) [Vol rate/Area] 90 mL/min/{1.73_m2} Normal >60 [facility] Comment on above: Result Comment: Non- GFR Calc Performed By: #### L 501.2300, L500.4050, L501.5200, L506.0400, L100.0100 ####[facility] [address] [place], [address] Globulin (S) [Mass/Vol] 3.5 g/dL Normal 2.2-4.2 [facility] Comment on above: Performed By: #### L 501.2300, L500.4050, L501.5200, L506.0400, L100.0100 ####[facility] [address] [place], [address] Glucose [Mass/Vol] 291 mg/dL High 74-106 [facility] Comment on above: Result Comment: Gluc ose result greater than or equal to 200 mg/dLsuggests DIABETES MELLITUS per A.D.A. criteria. Performed By: #### L 501.2300, L500.4050, L501.5200, L506.0400, L100.0100 ####[facility] [address] [place], [address] Potassium [Moles/Vol] 3.6 mmol/L Normal 3.5-5.1 [facility] Comment on above: Performed By: #### L 501.2300, L500.4050, L501.5200, L506.0400, L100.0100 ####[facility] [address] [place], [address] Sodium [Moles/Vol] 137 mmol/L Normal 136-145 [facility] Comment on above: Performed By: #### L 501.2300, L500.4050, L501.5200, L506.0400, L100.0100 ####[facility] [address] [place], [address] T PROT 6.2 g/dL Low 6.4-8.2 [facility] Comment on above: Performed By: #### L 501.2300, L500.4050, L501.5200, L506.0400, L100.0100 ####[facility] [address] [place], [address] Urea nitrogen [Mass/Vol] 21 mg/dL High - [facility] Comment on above: Performed By: #### L 501.2300, L500.4050, L501.5200, L506.0400, L100.0100 ####[facility] [address] [place], [address] Magnesiumon 08-30-2024 Magnesium [Mass/Vol] 2.1 mg/dL Normal 1.6-2.6 [facility] Comment on above: Performed By: #### L 501.2300, L500.4050, L501.5200, L506.0400, L100.0100 ####[facility] [address] [place], [address] Phosphoruson 08-30-2024 Phosphate [Mass/Vol] 2.4 mg/dL Low 2.5-4.9 [facility] Comment on above: Performed By: #### L 501.2300, L500.4050, L501.5200, L506.0400, L100.0100 ####[facility] [address] [place], [address] T4 Free Directon 08-30-2024 T4 FREE DIRECT 1.08 ng/dL Normal 0.76-1.46 [facility] Comment on above: Performed By: #### L 501.2300, L500.4050, L501.5200, L506.0400, L100.0100 ####[facility] [address] [place], [address] Acetone Serumon 08-29-2024 ACETONE SERUM SMALL Abnormal NEG [facility] Comment on above: Result Comment: RESU LTS CALLED TO CORINE LAMAS RN 08/29/24 1740 Yaw.REPORT READ BACK BY . SAME Performed By: #### L 500.2500, L501.6900 ####[facility] [address] [place], [address] Basic Metabolic Profile (BMP )on 08-29-2024 BUN/CRE 29.9 RATIO High 10-20 [facility] Comment on above: Performed By: #### L 500.2500, L501.6900 ####[facility] [address] [place], [address] CA,Total 9.8 mg/dL Normal 8.5-10.1 [facility] Comment on above: Performed By: #### L 500.2500, L501.6900 ####[facility] [address] [place], [address] Chloride [Moles/Vol] 105 mmol/L Normal 98-107 [facility] Comment on above: Performed By: #### L 500.2500, L501.6900 ####[facility] [address] [place], [address] CO2 [Moles/Vol] 20.0 mmol/L Low 21.0-32.0 [facility] Comment on above: Performed By: #### L 500.2500, L501.6900 ####[facility] [address] [place], [address] Creatinine [Mass/Vol] 0.77 mg/dL Normal 0.55-1.02 [facility] Comment on above: Result Comment: The validity of the calculated GFR GFRAA in patients over70 years has not been determined. Clinical correlation isessential. Performed By: #### L 500.2500, L501.6900 ####[facility] [address] [place], [address] ECRCL 49.33 ml/min Normal [facility] Comment on above: Performed By: #### L 500.2500, L501.6900 ####[facility] [address] [place], [address] EST GFR - AA 93 mL/min Normal >60 [facility] Comment on above: Result Comment: Afri can Liberian GFR Calc Performed By: #### L 500.2500, L501.6900 ####[facility] [address] [place], [address] GAP 11 Normal 5-15 [facility] Comment on above: Performed By: #### L 500.2500, L501.6900 ####[facility] [address] [place], [address] GFR/1.73 sq M.predicted among non-blacks MDRD (S/P/Bld) [Vol rate/Area] 76 mL/min/{1.73_m2} Normal >60 [facility] Comment on above: Result Comment: Non- GFR Calc Performed By: #### L 500.2500, L501.6900 ####[facility] [address] [place], [address] Glucose [Mass/Vol] 247 mg/dL High 74-106 [facility] Comment on above: Result Comment: Gluc ose result greater than or equal to 200 mg/dLsuggests DIABETES MELLITUS per A.D.A. criteria. Performed By: #### L 500.2500, L501.6900 ####[facility] [address] [place], [address] Potassium [Moles/Vol] 4.1 mmol/L Normal 3.5-5.1 [facility] Comment on above: Performed By: #### L 500.2500, L501.6900 ####[facility] [address] [place], [address] Sodium [Moles/Vol] 136 mmol/L Normal 136-145 [facility] Comment on above: Performed By: #### L 500.2500, L501.6900 ####[facility] [address] [place], [address] Urea nitrogen [Mass/Vol] 23 mg/dL High 7-18 [facility] Comment on above: Performed By: #### L 500.2500, L501.6900 ####[facility] [address] [place], [address] BUN Normal 7-18 [facility] Comment on above: Result Comment: Canc elled via OM: Order cancelled - Patient discharged Performed By: #### L 500.2500, L100.0100 ####[facility] [address] [place], [address] BUN/CRE Normal 10-20 [facility] Comment on above: Result Comment: Canc elled via OM: Order cancelled - Patient discharged Performed By: #### L 500.2500, L100.0100 ####[facility] [address] [place], [address] CA,Total Normal 8.5-10.1 [facility] Comment on above: Result Comment: Canc elled via OM: Order cancelled - Patient discharged Performed By: #### L 500.2500, L100.0100 ####[facility] [address] [place], [address] CL Normal 98-107 [facility] Comment on above: Result Comment: Canc elled via OM: Order cancelled - Patient discharged Performed By: #### L 500.2500, L100.0100 ####[facility] [address] [place], [address] CO2 Normal 21.0-32.0 [facility] Comment on above: Result Comment: Canc elled via OM: Order cancelled - Patient discharged Performed By: #### L 500.2500, L100.0100 ####[facility] [address] [place], [address] CREAT,SERUM Normal 0.55-1.02 [facility] Comment on above: Result Comment: Canc elled via OM: Order cancelled - Patient discharged Performed By: #### L 500.2500, L100.0100 ####[facility] [address] [place], [address] EST GFR Normal >60 [facility] Comment on above: Result Comment: Canc elled via OM: Order cancelled - Patient discharged Performed By: #### L 500.2500, L100.0100 ####[facility] [address] [place], [address] EST GFR - AA Normal >60 [facility] Comment on above: Result Comment: Canc elled via OM: Order cancelled - Patient discharged Performed By: #### L 500.2500, L100.0100 ####[facility] [address] [place], [address] GAP Normal 5-15 [facility] Comment on above: Result Comment: Canc elled via OM: Order cancelled - Patient discharged Performed By: #### L 500.2500, L100.0100 ####[facility] [address] [place], [address] GLU Normal 74-106 [facility] Comment on above: Result Comment: Canc elled via OM: Order cancelled - Patient discharged Performed By: #### L 500.2500, L100.0100 ####[facility] [address] [place], [address] Potassium Normal 3.5-5.1 [facility] Comment on above: Result Comment: Canc elled via OM: Order cancelled - Patient discharged Performed By: #### L 500.2500, L100.0100 ####[facility] [address] [place], [address] Basic Metabolic Profile (BMP) Normal 136-145 [facility] Comment on above: Result Comment: Canc elled via OM: Order cancelled - Patient discharged Performed By: #### L 500.2500, L100.0100 ####[facility] [address] [place], [address] Bedside Glucoseon 08-29-2024 FINGERSTICK GLU 300 mg/dL High 74-106 [facility] Comment on above: Result Comment: OLGA GEMENT OF PATIENT CARE PER NURSING PROTOCOL Performed By: #### L 501.080 ####[facility] [address] [place], [address] FINGERSTICK GLU 228 mg/dL High 74-106 [facility] Comment on above: Result Comment: OGLA GEMENT OF PATIENT CARE PER NURSING PROTOCOL Performed By: #### L 501.080 ####[facility] [address] [place], [address] FINGERSTICK GLU 224 mg/dL High 74-106 [facility] Comment on above: Result Comment: OLGA GEMENT OF PATIENT CARE PER NURSING PROTOCOL Performed By: #### L 501.080 ####[facility] [address] [place], [address] CBC W/Diff, Automatedon 08-13 Absolute Neut Normal 2.0-7.7 [facility] Comment on above: Result Comment: Canc elled via OM: Order cancelled - Patient discharged Performed By: #### L 500.2500, L100.0100 ####[facility] [address] [place], [address] HCT Normal 37-47 [facility] Comment on above: Result Comment: Canc elled via OM: Order cancelled - Patient discharged Performed By: #### L 500.2500, L100.0100 ####[facility] [address] [place], [address] HGB Normal 12.0-15.0 [facility] Comment on above: Result Comment: Canc elled via OM: Order cancelled - Patient discharged Performed By: #### L 500.2500, L100.0100 ####[facility] [address] [place], [address] MCH Normal 27.0-32.0 [facility] Comment on above: Result Comment: Canc elled via OM: Order cancelled - Patient discharged Performed By: #### L 500.2500, L100.0100 ####[facility] [address] [place], [address] MCHC Normal 32-36 [facility] Comment on above: Result Comment: Canc elled via OM: Order cancelled - Patient discharged Performed By: #### L 500.2500, L100.0100 ####[facility] [address] [place], [address] MCV Normal 81-99 [facility] Comment on above: Result Comment: Canc elled via OM: Order cancelled - Patient discharged Performed By: #### L 500.2500, L100.0100 ####[facility] [address] [place], [address] NEUT% Normal 47-70 [facility] Comment on above: Result Comment: Canc elled via OM: Order cancelled - Patient discharged Performed By: #### L 500.2500, L100.0100 ####[facility] [address] [place], [address] PLT Normal 150-450 [facility] Comment on above: Result Comment: Canc elled via OM: Order cancelled - Patient discharged Performed By: #### L 500.2500, L100.0100 ####[facility] [address] [place], [address] RBC Normal 4.2-5.4 [facility] Comment on above: Result Comment: Canc elled via OM: Order cancelled - Patient discharged Performed By: #### L 500.2500, L100.0100 ####[facility] [address] [place], [address] RDW CV Normal 11.6-14.6 [facility] Comment on above: Result Comment: Canc elled via OM: Order cancelled - Patient discharged Performed By: #### L 500.2500, L100.0100 ####[facility] [address] [place], [address] RDW SD Normal 35.1-43.9 [facility] Comment on above: Result Comment: Canc elled via OM: Order cancelled - Patient discharged Performed By: #### L 500.2500, L100.0100 ####[facility] [address] [place], [address] WBC Normal 4.4-11.0 [facility] Comment on above: Result Comment: Canc elled via OM: Order cancelled - Patient discharged Performed By: #### L 500.2500, L100.0100 ####[facility] [address] [place], [address] Urinalysis, Completeon 08-29 BACTERIA RARE Normal None Seen [facility] Comment on above: Order Comment: BLADD ER TAP Performed By: #### L 400.0001 ####[facility] [address] [place], [address] EPI,SQUAMOUS 0-5 SEEN Normal 5-10 [facility] Comment on above: Order Comment: BLADD ER TAP Performed By: #### L 400.0001 ####[facility] [address] [place], [address] RBC 0-5 SEEN Normal 0-5 [facility] Comment on above: Order Comment: BLADD ER TAP Performed By: #### L 400.0001 ####[facility] [address] [place], [address] WBC 5-10 SEEN Normal 0-5 [facility] Comment on above: Order Comment: BLADD ER TAP Performed By: #### L 400.0001 ####[facility] [address] [place], [address] YEAST 2+ /hpf Normal None Seen [facility] Comment on above: Order Comment: BLADD ER TAP Performed By: #### L 400.0001 ####[facility] [address] [place], [address] Mucus Ql (Urine sed) 0 SEEN Normal [facility] Comment on above: Order Comment: BLADD ER TAP Performed By: #### L 400.0001 ####[facility] [address] [place], [address] Basic Metabolic Profile (BMP )on 08-28-2024 BUN/CRE 20.4 RATIO High 10-20 [facility] Comment on above: Performed By: #### L 100.0100, L500.2500, L501.9520 ####[facility] [address] [place], [address] CA,Total 9.2 mg/dL Normal 8.5-10.1 [facility] Comment on above: Performed By: #### L 100.0100, L500.2500, L501.9520 ####[facility] [address] [place], [address] Chloride [Moles/Vol] 107 mmol/L Normal 98-107 [facility] Comment on above: Performed By: #### L 100.0100, L500.2500, L501.9520 ####[facility] [address] [place], [address] CO2 [Moles/Vol] 20.0 mmol/L Low 21.0-32.0 [facility] Comment on above: Performed By: #### L 100.0100, L500.2500, L501.9520 ####[facility] [address] [place], [address] Creatinine [Mass/Vol] 0.64 mg/dL Normal 0.55-1.02 [facility] Comment on above: Result Comment: The validity of the calculated GFR GFRAA in patients over70 years has not been determined. Clinical correlation isessential. Performed By: #### L 100.0100, L500.2500, L501.9520 ####[facility] [address] [place], [address] ECRCL 49.35 ml/min Normal [facility] Comment on above: Performed By: #### L 100.0100, L500.2500, L501.9520 ####[facility] [address] [place], [address] EST GFR - AA 115 mL/min Normal >60 [facility] Comment on above: Result Comment: Afri can Liberian GFR Calc Performed By: #### L 100.0100, L500.2500, L501.9520 ####[facility] [address] [place], [address] GAP 9 Normal 5-15 [facility] Comment on above: Performed By: #### L 100.0100, L500.2500, L501.9520 ####[facility] [address] [place], [address] GFR/1.73 sq M.predicted among non-blacks MDRD (S/P/Bld) [Vol rate/Area] 95 mL/min/{1.73_m2} Normal >60 [facility] Comment on above: Result Comment: Non- GFR Calc Performed By: #### L 100.0100, L500.2500, L501.9520 ####[facility] [address] [place], [address] Glucose [Mass/Vol] 209 mg/dL High 74-106 [facility] Comment on above: Result Comment: Gluc ose result greater than or equal to 200 mg/dLsuggests DIABETES MELLITUS per A.D.A. criteria. Performed By: #### L 100.0100, L500.2500, L501.9520 ####[facility] [address] [place], [address] Potassium [Moles/Vol] 3.8 mmol/L Normal 3.5-5.1 [facility] Comment on above: Performed By: #### L 100.0100, L500.2500, L501.9520 ####[facility] [address] [place], [address] Sodium [Moles/Vol] 136 mmol/L Normal 136-145 [facility] Comment on above: Performed By: #### L 100.0100, L500.2500, L501.9520 ####[facility] [address] [place], [address] Urea nitrogen [Mass/Vol] 13 mg/dL Normal 7-18 [facility] Comment on above: Performed By: #### L 100.0100, L500.2500, L501.9520 ####[facility] [address] [place], [address] Bedside Glucoseon 08-28-2024 FINGERSTICK GLU 229 mg/dL High 74-106 [facility] Comment on above: Result Comment: OLGA GEMENT OF PATIENT CARE PER NURSING PROTOCOL Performed By: #### L 501.080 ####[facility] [address] [place], [address] FINGERSTICK GLU 241 mg/dL High -106 [facility] Comment on above: Result Comment: OLGA GEMENT OF PATIENT CARE PER NURSING PROTOCOL Performed By: #### L 501.080 ####[facility] [address] [place], [address] FINGERSTICK GLU 216 mg/dL High 74-106 [facility] Comment on above: Result Comment: OLGA GOMEZ OF PATIENT CARE PER NURSING PROTOCOL Performed By: #### L 501.080 ####[facility] [address] [place], [address] CBC W/Diff, Automatedon - Absolute Lymph 1.53 X10 3/uL Normal 0.83-4.51 [facility] Comment on above: Performed By: #### L 100.0100, L500.2500, L501.9520 ####[facility] [address] [place], [address] Absolute Neut 6.4 X10 3/uL Normal 2.0-7.7 [facility] Comment on above: Performed By: #### L 100.0100, L500.2500, L501.9520 ####[facility] [address] [place], [address] Basophils/100 WBC (Bld) 0.5 % Normal 0-1 [facility] Comment on above: Performed By: #### L 100.0100, L500.2500, L501.9520 ####[facility] [address] [place], [address] Eosinophils/100 WBC (Bld) 3.1 % Normal 0-5 [facility] Comment on above: Performed By: #### L 100.0100, L500.2500, L501.9520 ####[facility] [address] [place], [address] Erythrocyte distribution width (RBC) [Ratio] 13.3 % Normal 11.6-14.6 [facility] Comment on above: Performed By: #### L 100.0100, L500.2500, L501.9520 ####[facility] [address] [place], [address] Hematocrit (Bld) [Volume fraction] 36.4 % Low 37-47 [facility] Comment on above: Performed By: #### L 100.0100, L500.2500, L501.9520 ####[facility] [address] [place], [address] Hemoglobin (Bld) [Mass/Vol] 12.4 g/dL Normal 12.0-15.0 [facility] Comment on above: Performed By: #### L 100.0100, L500.2500, L501.9520 ####[facility] [address] [place], [address] IG% 0.300 Normal 0.0-0.9 [facility] Comment on above: Result Comment: IG% - Immature Granulocytes (promyelocytes, myelocytes andmetamyelocytes) > 1% indicates that a LEFT SHIFT is Present. Performed By: #### L 100.0100, L500.2500, L501.9520 ####[facility] [address] [place], [address] Lymphocytes/100 WBC (Bld) 16.2 % Low 19-41 [facility] Comment on above: Performed By: #### L 100.0100, L500.2500, L501.9520 ####[facility] [address] [place], [address] MCH (RBC) [Entitic mass] 32.0 pg Normal 27.0-32.0 [facility] Comment on above: Performed By: #### L 100.0100, L500.2500, L501.9520 ####[facility] [address] [place], [address] MCHC (RBC) [Mass/Vol] 34.1 g/dL Normal 32-36 [facility] Comment on above: Performed By: #### L 100.0100, L500.2500, L501.9520 ####[facility] [address] [place], [address] MCV (RBC) [Entitic vol] 93.8 fL Normal 81-99 [facility] Comment on above: Performed By: #### L 100.0100, L500.2500, L501.9520 ####[facility] [address] [place], [address] Monocytes/100 WBC (Bld) 11.6 % High 0-10 [facility] Comment on above: Performed By: #### L 100.0100, L500.2500, L501.9520 ####[facility] [address] [place], [address] Neutrophils/100 WBC (Bld) 68.3 % Normal 47-70 [facility] Comment on above: Performed By: #### L 100.0100, L500.2500, L501.9520 ####[facility] [address] [place], [address] Nucleated RBC (Bld) [#/Vol] 0 10*3/uL Normal 0-5 [facility] Comment on above: Performed By: #### L 100.0100, L500.2500, L501.9520 ####[facility] [address] [place], [address] Platelet mean volume (Bld) [Entitic vol] 9.7 fL Normal 6.2-12.0 [facility] Comment on above: Performed By: #### L 100.0100, L500.2500, L501.9520 ####[facility] [address] [place], [address] Platelets (Bld) [#/Vol] 283 10*3/uL Normal 150-450 [facility] Comment on above: Performed By: #### L 100.0100, L500.2500, L501.9520 ####[facility] [address] [place], [address] RBC (Bld) [#/Vol] 3.88 10*6/uL Low 4.2-5.4 [facility] Comment on above: Performed By: #### L 100.0100, L500.2500, L501.9520 ####[facility] [address] [place], [address] RDW SD 45.1 fl High 35.1-43.9 [facility] Comment on above: Performed By: #### L 100.0100, L500.2500, L501.9520 ####[facility] [address] [place], [address] WBC (Bld) [#/Vol] 9.4 10*3/uL Normal 4.4-11.0 [facility] Comment on above: Performed By: #### L 100.0100, L500.2500, L501.9520 ####[facility] [address] [place], [address] EGD Reporton 08-28-2024 EGD Report Normal [facility] Hemoglobin A1con 08-28-2024 HbA1c (Bld) [Mass fraction] 7.2 % High 3.8-5.6 [facility] Comment on above: Result Comment: Norm al < 5.7 % Prediabetic 5.7 - 6.4 % Diabetic >or= 6.5 % Please note range changes. Performed By: #### L 501.9023 ####[facility] [address] [place], [address] MR/CON.PCM.NEon 08-28-2024 MR/CON.PCM.NE Normal [facility] MR/PN.GIon 08-28-2024 MR/PN.GI Normal [facility] MR/POSTOP.ANEon 08-28-2024 MR/POSTOP.ANE Normal [facility] MR/EBJTBDQF7sk 08-28-2024 MR/POSTOPAN2 Normal [facility] Thyroid Stim Hormone (TSH)on 08-28-2024 TSH 10.600 uIU/mL High 0.358-3.74 0 [facility] Comment on above: Performed By: #### L 100.0100, L500.2500, L501.9520 ####[facility] [address] [place], [address] Urine Cultureon 08-28-2024 URC Normal [facility] Comment on above: Performed By: #### M 100.2200 ####[facility] [address] [place], [address] Bedside Glucoseon 08-27-2024 FINGERSTICK GLU 195 mg/dL High 74-106 [facility] Comment on above: Result Comment: OLGA GEMENT OF PATIENT CARE PER NURSING PROTOCOL Performed By: #### L 501.080 ####[facility] [address] [place], [address] FINGERSTICK GLU 173 mg/dL High 74-106 [facility] Comment on above: Result Comment: OLGA GEMENT OF PATIENT CARE PER NURSING PROTOCOL Performed By: #### L 501.080 ####[facility] [address] [place], [address] FINGERSTICK GLU 249 mg/dL High 74-106 [facility] Comment on above: Result Comment: OLGA GEMENT OF PATIENT CARE PER NURSING PROTOCOL Performed By: #### L 501.080 ####[facility] [address] [place], [address] FINGERSTICK GLU 188 mg/dL High 74-106 [facility] Comment on above: Result Comment: OLGA GEMENT OF PATIENT CARE PER NURSING PROTOCOL Performed By: #### L 501.080 ####[facility] [address] [place], [address] MR/CON.PCM.GIon 08-27-2024 MR/CON.PCM.GI Normal [facility] Modified Barium Swallow Stud yon 08-27-2024 Modified Barium Swallow Study Normal [facility] Bedside Glucoseon 08-26-2024 FINGERSTICK GLU 162 mg/dL High 74-106 [facility] Comment on above: Result Comment: OLGA GEMENT OF PATIENT CARE PER NURSING PROTOCOL Performed By: #### L 501.080 ####[facility] [address], [address] FINGERSTICK GLU 167 mg/dL High 74-106 [facility] Comment on above: Result Comment: OLGA GEMENT OF PATIENT CARE PER NURSING PROTOCOL Performed By: #### L 501.080 ####[facility] [address], [address] FINGERSTICK GLU 214 mg/dL High 74-106 [facility] Comment on above: Result Comment: OLGA GEMENT OF PATIENT CARE PER NURSING PROTOCOL Performed By: #### L 501.080 ####[facility] [address] [place], [address] FINGERSTICK GLU 152 mg/dL High 74-106 [facility] Comment on above: Result Comment: OLGA GEMENT OF PATIENT CARE PER NURSING PROTOCOL Performed By: #### L 501.080 ####[facility] [address] [place], [address] CBC W/Diff, Automatedon 08-13 Absolute Lymph 1.33 X10 3/uL Normal 0.83-4.51 [facility] Comment on above: Performed By: #### L 500.4100, L501.2300, L100.0100, L501.5200, L500.4050 ####[facility] [address] [place], [address] Absolute Neut 7.2 X10 3/uL Normal 2.0-7.7 [facility] Comment on above: Performed By: #### L 500.4100, L501.2300, L100.0100, L501.5200, L500.4050 ####[facility] [address] [place], [address] Basophils/100 WBC (Bld) 0.3 % Normal 0-1 [facility] Comment on above: Performed By: #### L 500.4100, L501.2300, L100.0100, L501.5200, L500.4050 ####[facility] [address] [place], [address] Eosinophils/100 WBC (Bld) 3.2 % Normal 0-5 [facility] Comment on above: Performed By: #### L 500.4100, L501.2300, L100.0100, L501.5200, L500.4050 ####[facility] [address] [place], [address] Erythrocyte distribution width (RBC) [Ratio] 13.1 % Normal 11.6-14.6 [facility] Comment on above: Performed By: #### L 500.4100, L501.2300, L100.0100, L501.5200, L500.4050 ####[facility] [address] [place], [address] Hematocrit (Bld) [Volume fraction] 31.7 % Low 37-47 [facility] Comment on above: Performed By: #### L 500.4100, L501.2300, L100.0100, L501.5200, L500.4050 ####[facility] [address] [place], [address] Hemoglobin (Bld) [Mass/Vol] 10.5 g/dL Low 12.0-15.0 [facility] Comment on above: Performed By: #### L 500.4100, L501.2300, L100.0100, L501.5200, L500.4050 ####[facility] [address] [place], [address] IG% 0.400 Normal 0.0-0.9 [facility] Comment on above: Result Comment: IG% - Immature Granulocytes (promyelocytes, myelocytes andmetamyelocytes) > 1% indicates that a LEFT SHIFT is Present. Performed By: #### L 500.4100, L501.2300, L100.0100, L501.5200, L500.4050 ####[facility] [address] [place], [address] Lymphocytes/100 WBC (Bld) 13.8 % Low 19-41 [facility] Comment on above: Performed By: #### L 500.4100, L501.2300, L100.0100, L501.5200, L500.4050 ####[facility] [address] [place], [address] MCH (RBC) [Entitic mass] 31.3 pg Normal 27.0-32.0 [facility] Comment on above: Performed By: #### L 500.4100, L501.2300, L100.0100, L501.5200, L500.4050 ####[facility] [address] [place], [address] MCHC (RBC) [Mass/Vol] 33.1 g/dL Normal 32-36 [facility] Comment on above: Performed By: #### L 500.4100, L501.2300, L100.0100, L501.5200, L500.4050 ####[facility] [address] [place], [address] MCV (RBC) [Entitic vol] 94.6 fL Normal 81-99 [facility] Comment on above: Performed By: #### L 500.4100, L501.2300, L100.0100, L501.5200, L500.4050 ####[facility] [address] [place], [address] Monocytes/100 WBC (Bld) 8.4 % Normal 0-10 [facility] Comment on above: Performed By: #### L 500.4100, L501.2300, L100.0100, L501.5200, L500.4050 ####[facility] [address] [place], [address] Neutrophils/100 WBC (Bld) 73.9 % High 47-70 [facility] Comment on above: Performed By: #### L 500.4100, L501.2300, L100.0100, L501.5200, L500.4050 ####[facility] [address] [place], [address] Nucleated RBC (Bld) [#/Vol] 0 10*3/uL Normal 0-5 [facility] Comment on above: Performed By: #### L 500.4100, L501.2300, L100.0100, L501.5200, L500.4050 ####[facility] [address] [place], [address] Platelet mean volume (Bld) [Entitic vol] 10.0 fL Normal 6.2-12.0 [facility] Comment on above: Performed By: #### L 500.4100, L501.2300, L100.0100, L501.5200, L500.4050 ####[facility] [address] [place], [address] Platelets (Bld) [#/Vol] 276 10*3/uL Normal 150-450 [facility] Comment on above: Performed By: #### L 500.4100, L501.2300, L100.0100, L501.5200, L500.4050 ####[facility] [address] [place], [address] RBC (Bld) [#/Vol] 3.35 10*6/uL Low 4.2-5.4 [facility] Comment on above: Performed By: #### L 500.4100, L501.2300, L100.0100, L501.5200, L500.4050 ####[facility] [address] [place], [address] RDW SD 44.6 fl High 35.1-43.9 [facility] Comment on above: Performed By: #### L 500.4100, L501.2300, L100.0100, L501.5200, L500.4050 ####[facility] [address] [place], [address] WBC (Bld) [#/Vol] 9.7 10*3/uL Normal 4.4-11.0 [facility] Comment on above: Performed By: #### L 500.4100, L501.2300, L100.0100, L501.5200, L500.4050 ####[facility] [address] [place], [address] Comprehensive Metabolic Prof [facility] 08-26-2024 Albumin [Mass/Vol] 3.2 g/dL Normal 3.2-5.0 [facility] Comment on above: Order Comment: Comme nts: NPO at [place] prior to lipid panel Performed By: #### L 500.4100, L501.2300, L100.0100, L501.5200, L500.4050 ####[facility] [address] [place], [address] Albumin/Globulin [Mass ratio] 0.9 {ratio} Normal 0.9-2.4 [facility] Comment on above: Order Comment: Comme nts: NPO at [place] prior to lipid panel Performed By: #### L 500.4100, L501.2300, L100.0100, L501.5200, L500.4050 ####[facility] [address] [place], [address] ALK P 76 U/L Normal 45-117 [facility] Comment on above: Order Comment: Comme nts: NPO at [place] prior to lipid panel Performed By: #### L 500.4100, L501.2300, L100.0100, L501.5200, L500.4050 ####[facility] [address] [place], [address] ALT [Catalytic activity/Vol] 22 U/L Normal 13-56 [facility] Comment on above: Order Comment: Comme nts: NPO at [place] prior to lipid panel Performed By: #### L 500.4100, L501.2300, L100.0100, L501.5200, L500.4050 ####[facility] [address] [place], [address] AST [Catalytic activity/Vol] 20 U/L Normal 15-37 [facility] Comment on above: Order Comment: Comme nts: NPO at [place] prior to lipid panel Performed By: #### L 500.4100, L501.2300, L100.0100, L501.5200, L500.4050 ####[facility] [address] [place], [address] Bilirubin [Mass/Vol] 0.50 mg/dL Normal 0.20-1.00 [facility] Comment on above: Order Comment: Comme nts: NPO at [place] prior to lipid panel Result Comment: For patients on eltrombopag therapy, use of Dimension [place] TBIL is not recommended. Performed By: #### L 500.4100, L501.2300, L100.0100, L501.5200, L500.4050 ####[facility] [address] [place], [address] BUN/CRE 25.9 RATIO High 10-20 [facility] Comment on above: Order Comment: Comme nts: NPO at [place] prior to lipid panel Performed By: #### L 500.4100, L501.2300, L100.0100, L501.5200, L500.4050 ####[facility] [address] [place], [address] CA,Total 8.8 mg/dL Normal 8.5-10.1 [facility] Comment on above: Order Comment: Comme nts: NPO at [place] prior to lipid panel Performed By: #### L 500.4100, L501.2300, L100.0100, L501.5200, L500.4050 ####[facility] [address] [place], [address] Chloride [Moles/Vol] 108 mmol/L High 98-107 [facility] Comment on above: Order Comment: Comme nts: NPO at [place] prior to lipid panel Performed By: #### L 500.4100, L501.2300, L100.0100, L501.5200, L500.4050 ####[facility] [address] [place], [address] CO2 [Moles/Vol] 23.0 mmol/L Normal 21.0-32.0 [facility] Comment on above: Order Comment: Comme nts: NPO at [place] prior to lipid panel Performed By: #### L 500.4100, L501.2300, L100.0100, L501.5200, L500.4050 ####[facility] [address] [place], [address] Creatinine [Mass/Vol] 0.81 mg/dL Normal 0.55-1.02 [facility] Comment on above: Order Comment: Comme nts: NPO at [place] prior to lipid panel Result Comment: The validity of the calculated GFR GFRAA in patients over70 years has not been determined. Clinical correlation isessential. Performed By: #### L 500.4100, L501.2300, L100.0100, L501.5200, L500.4050 ####[facility] [address] [place], [address] ECRCL 48.74 ml/min Normal [facility] Comment on above: Order Comment: Comme nts: NPO at [place] prior to lipid panel Performed By: #### L 500.4100, L501.2300, L100.0100, L501.5200, L500.4050 ####[facility] [address] [place], [address] EST GFR - AA 87 mL/min Normal >60 [facility] Comment on above: Order Comment: Comme nts: NPO at [place] prior to lipid panel Result Comment: Afri can Liberian GFR Calc Performed By: #### L 500.4100, L501.2300, L100.0100, L501.5200, L500.4050 ####[facility] [address] [place], [address] GAP 7 Normal 5-15 [facility] Comment on above: Order Comment: Comme nts: NPO at [place] prior to lipid panel Performed By: #### L 500.4100, L501.2300, L100.0100, L501.5200, L500.4050 ####[facility] [address] [place], [address] GFR/1.73 sq M.predicted among non-blacks MDRD (S/P/Bld) [Vol rate/Area] 72 mL/min/{1.73_m2} Normal >60 [facility] Comment on above: Order Comment: Comme nts: NPO at [place] prior to lipid panel Result Comment: Non- GFR Calc Performed By: #### L 500.4100, L501.2300, L100.0100, L501.5200, L500.4050 ####[facility] [address] [place], [address] Globulin (S) [Mass/Vol] 3.4 g/dL Normal 2.2-4.2 [facility] Comment on above: Order Comment: Comme nts: NPO at [place] prior to lipid panel Performed By: #### L 500.4100, L501.2300, L100.0100, L501.5200, L500.4050 ####[facility] [address] [place], [address] Glucose [Mass/Vol] 149 mg/dL High 74-106 [facility] Comment on above: Order Comment: Comme nts: NPO at [place] prior to lipid panel Result Comment: Fast ing Glucose result greater than or equal to 126 mg/dLsuggests DIABETES MELLITUS per A.D.A. criteria. Performed By: #### L 500.4100, L501.2300, L100.0100, L501.5200, L500.4050 ####[facility] [address] [place], [address] Potassium [Moles/Vol] 3.9 mmol/L Normal 3.5-5.1 [facility] Comment on above: Order Comment: Comme nts: NPO at [place] prior to lipid panel Performed By: #### L 500.4100, L501.2300, L100.0100, L501.5200, L500.4050 ####[facility] [address] [place], [address] Sodium [Moles/Vol] 137 mmol/L Normal 136-145 [facility] Comment on above: Order Comment: Comme nts: NPO at [place] prior to lipid panel Performed By: #### L 500.4100, L501.2300, L100.0100, L501.5200, L500.4050 ####[facility] [address] [place], [address] T PROT 6.6 g/dL Normal 6.4-8.2 [facility] Comment on above: Order Comment: Comme nts: [place]PO at [place] prior to lipid panel Performed By: #### L 500.4100, L501.2300, L100.0100, L501.5200, L500.4050 ####[facility] [address] [place], [address] Urea nitrogen [Mass/Vol] 21 mg/dL High 7-18 [facility] Comment on above: Order Comment: Comme nts: NPO at [place] prior to lipid panel Performed By: #### L 500.4100, L501.2300, L100.0100, L501.5200, L500.4050 ####[facility] [address] [place], [address] Echo, Limited Studyon 2024 Echo, Limited Study Normal [facility] Lipid Profileon 08-26-2024 Cholesterol [Mass/Vol] 142 mg/dL Normal [address] [facility] Comment on above: Order Comment: Comme nts: [place] at [place] prior to lipid panel Result Comment: <200 mg/dL Desirable 200-240 mg/dL Borderline >240 mg/dL High Risk Performed By: #### L 500.4100, L501.2300, L100.0100, L501.5200, L500.4050 ####[facility] [address] [place], [address] Cholesterol in HDL [Mass/Vol] 53 mg/dL Normal [facility] Comment on above: Order Comment: Comme nts: [place] at [place] prior to lipid panel Result Comment: The drugs N-Acetylcysteine and Metamizole may falselydepress this assay. Reference Range HDL <40 mg/dL Low HDL Cholesterol HDL >or= 60 mg/dL High HDL Cholesterol Performed By: #### L 500.4100, L501.2300, L100.0100, L501.5200, L500.4050 ####[facility] [address] [place], [address] Cholesterol in LDL [Mass/Vol] 51 mg/dL Normal 0-130 [facility] Comment on above: Order Comment: Comme nts: [place] at [place] prior to lipid panel Performed By: #### L 500.4100, L501.2300, L100.0100, L501.5200, L500.4050 ####[facility] [address] [place], [address] Cholesterol in VLDL [Mass/Vol] 38 mg/dL Normal 5-40 [facility] Comment on above: Order Comment: Comme nts: [place]PO at [place] prior to lipid panel Performed By: #### L 500.4100, L501.2300, L100.0100, L501.5200, L500.4050 ####[facility] [address] [place], [address] Triglyceride [Mass/Vol] 192 mg/dL Normal [facility] Comment on above: Order Comment: Comme nts: [place]PO at [place] prior to lipid panel Result Comment: The drugs N-Acetylcysteine and Metamizole may falselydepress this assay.Serum Triglycerides Reference Interval Normal <150 mg/dL Borderline high 150 - 199 mg/dL High 200 - 499 mg/dL Very High > or = 500 mg/dL Performed By: #### L 500.4100, L501.2300, L100.0100, L501.5200, L500.4050 ####[facility] [address] [place], [address] MR/CON.PCM.NEon 08-26-2024 MR/CON.PCM.NE Normal [facility] Magnesiumon 08-26-2024 Magnesium [Mass/Vol] 1.6 mg/dL Normal 1.6-2.6 [facility] Comment on above: Order Comment: Comme nts: [place]PO at [place] prior to lipid panel Performed By: #### L 500.4100, L501.2300, L100.0100, L501.5200, L500.4050 ####[facility] [address] [place], [address] Phosphoruson 08-26-2024 Phosphate [Mass/Vol] 3.4 mg/dL Normal 2.5-4.9 [facility] Comment on above: Order Comment: Comme nts: [place]PO at [place] prior to lipid panel Performed By: #### L 500.4100, L501.2300, L100.0100, L501.5200, L500.4050 ####[facility] [address] [place], [address] 12 Lead EKGon 08-25-2024 12 Lead EKG Normal [facility] Basic Metabolic Profile (BMP )on 08-25-2024 BUN/CRE 26.7 RATIO High 10-20 [facility] Comment on above: Order Comment: 'TROP ' Serial specimen #1, #2 or #3: 1 Performed By: #### L 501.4020, L100.0100, L500.2500, L300.3900, L300.4310 ####[facility] [address] [place], [address] CA,Total 9.3 mg/dL Normal 8.5-10.1 [facility] Comment on above: Order Comment: 'TROP ' Serial specimen #1, #2 or #3: 1 Performed By: #### L 501.4020, L100.0100, L500.2500, L300.3900, L300.4310 ####[facility] [address] [place], [address] Chloride [Moles/Vol] 102 mmol/L Normal 98-107 [facility] Comment on above: Order Comment: 'TROP ' Serial specimen #1, #2 or #3: 1 Performed By: #### L 501.4020, L100.0100, L500.2500, L300.3900, L300.4310 ####[facility] [address] [place], [address] CO2 [Moles/Vol] 25.0 mmol/L Normal 21.0-32.0 [facility] Comment on above: Order Comment: 'TROP ' Serial specimen #1, #2 or #3: 1 Performed By: #### L 501.4020, L100.0100, L500.2500, L300.3900, L300.4310 ####[facility] [address] [place], [address] Creatinine [Mass/Vol] 1.16 mg/dL High 0.55-1.02 [facility] Comment on above: Order Comment: 'TROP ' Serial specimen #1, #2 or #3: 1 Result Comment: The validity of the calculated GFR GFRAA in patients over70 years has not been determined. Clinical correlation isessential. Performed By: #### L 501.4020, L100.0100, L500.2500, L300.3900, L300.4310 ####[facility] [address] [place], [address] ECRCL 35.92 ml/min Normal [facility] Comment on above: Order Comment: 'TROP ' Serial specimen #1, #2 or #3: 1 Performed By: #### L 501.4020, L100.0100, L500.2500, L300.3900, L300.4310 ####[facility] [address] [place], [address] EST GFR - AA 58 mL/min Low >60 [facility] Comment on above: Order Comment: 'TROP ' Serial specimen #1, #2 or #3: 1 Result Comment: Afri can Liberian GFR Calc Performed By: #### L 501.4020, L100.0100, L500.2500, L300.3900, L300.4310 ####[facility] [address] [place], [address] GAP 8 Normal 5-15 [facility] Comment on above: Order Comment: 'TROP ' Serial specimen #1, #2 or #3: 1 Performed By: #### L 501.4020, L100.0100, L500.2500, L300.3900, L300.4310 ####[facility] [address] [place], [address] GFR/1.73 sq M.predicted among non-blacks MDRD (S/P/Bld) [Vol rate/Area] 48 mL/min/{1.73_m2} Low >60 [facility] Comment on above: Order Comment: 'TROP ' Serial specimen #1, #2 or #3: 1 Result Comment: Non- GFR Calc Performed By: #### L 501.4020, L100.0100, L500.2500, L300.3900, L300.4310 ####[facility] [address] [place], [address] Glucose [Mass/Vol] 350 mg/dL High 74-106 [facility] Comment on above: Order Comment: 'TROP ' Serial specimen #1, #2 or #3: 1 Result Comment: Gluc ose result greater than or equal to 200 mg/dLsuggests DIABETES MELLITUS per A.D.A. criteria. Performed By: #### L 501.4020, L100.0100, L500.2500, L300.3900, L300.4310 ####[facility] [address] [place], [address] Potassium [Moles/Vol] 4.7 mmol/L Normal 3.5-5.1 [facility] Comment on above: Order Comment: 'TROP ' Serial specimen #1, #2 or #3: 1 Performed By: #### L 501.4020, L100.0100, L500.2500, L300.3900, L300.4310 ####[facility] [address] [place], [address] Sodium [Moles/Vol] 135 mmol/L Low 136-145 [facility] Comment on above: Order Comment: 'TROP ' Serial specimen #1, #2 or #3: 1 Performed By: #### L 501.4020, L100.0100, L500.2500, L300.3900, L300.4310 ####[facility] [address] [place], [address] Urea nitrogen [Mass/Vol] 31 mg/dL High 7-18 [facility] Comment on above: Order Comment: 'TROP ' Serial specimen #1, #2 or #3: 1 Performed By: #### L 501.4020, L100.0100, L500.2500, L300.3900, L300.4310 ####[facility] [address] [place], [address] Bedside Glucoseon 08-25-2024 FINGERSTICK GLU 140 mg/dL High [address] [place] [address] Comment on above: Result Comment: OLGA GEMENT OF PATIENT CARE PER NURSING PROTOCOL Performed By: #### L 501.080 ####[facility] [address] [place], [address] FINGERSTICK GLU 135 mg/dL High [facility]106 [facility] Comment on above: Result Comment: OLGA GEMENT OF PATIENT CARE PER NURSING PROTOCOL Performed By: #### L 501.080 ####[facility] [address] [place], [address] FINGERSTICK GLU 352 mg/dL High [facility]106 [facility] Comment on above: Result Comment: OLGA GEMENT OF PATIENT CARE PER NURSING PROTOCOL Performed By: #### L 501.080 ####[facility] [address] [place], [address] FINGERSTICK GLU 209 mg/dL High [address] [place] [address] Comment on above: Result Comment: OLGA GEMENT OF PATIENT CARE PER NURSING PROTOCOL Performed By: #### L 501.080 ####[facility] [address] [place], [address] Brain without Contraston Brain without Contrast Normal [facility] CBC W/Diff, Automatedon 08-13 Absolute Lymph 1.24 X10 3/uL Normal 0.83-4.51 [facility] Comment on above: Performed By: #### L 501.4020, L100.0100, L500.2500, L300.3900, L300.4310 ####[facility] [address] [place], [address] Absolute Neut 8.0 X10 3/uL High 2.0-7.7 [facility] Comment on above: Performed By: #### L 501.4020, L100.0100, L500.2500, L300.3900, L300.4310 ####[facility] [address] [place], [address] Basophils/100 WBC (Bld) 0.5 % Normal 0-1 [facility] Comment on above: Performed By: #### L 501.4020, L100.0100, L500.2500, L300.3900, L300.4310 ####[facility] [address] [place], [address] Eosinophils/100 WBC (Bld) 2.8 % Normal 0-5 [facility] Comment on above: Performed By: #### L 501.4020, L100.0100, L500.2500, L300.3900, L300.4310 ####[facility] [address] [place], [address] Erythrocyte distribution width (RBC) [Ratio] 12.9 % Normal 11.6-14.6 [facility] Comment on above: Performed By: #### L 501.4020, L100.0100, L500.2500, L300.3900, L300.4310 ####[facility] [address] [place], [address] Hematocrit (Bld) [Volume fraction] 33.7 % Low 37-47 [facility] Comment on above: Performed By: #### L 501.4020, L100.0100, L500.2500, L300.3900, L300.4310 ####[facility] [address] [place], [address] Hemoglobin (Bld) [Mass/Vol] 11.5 g/dL Low 12.0-15.0 [facility] Comment on above: Performed By: #### L 501.4020, L100.0100, L500.2500, L300.3900, L300.4310 ####[facility] [address] [place], [address] IG% 0.400 Normal 0.0-0.9 [facility] Comment on above: Result Comment: IG% - Immature Granulocytes (promyelocytes, myelocytes andmetamyelocytes) > 1% indicates that a LEFT SHIFT is Present. Performed By: #### L 501.4020, L100.0100, L500.2500, L300.3900, L300.4310 ####[facility] [address] [place], [address] Lymphocytes/100 WBC (Bld) 11.8 % Low 19-41 [facility] Comment on above: Performed By: #### L 501.4020, L100.0100, L500.2500, L300.3900, L300.4310 ####[facility] [address] [place], [address] MCH (RBC) [Entitic mass] 32.2 pg High 27.0-32.0 [facility] Comment on above: Performed By: #### L 501.4020, L100.0100, L500.2500, L300.3900, L300.4310 ####[facility] [address] [place], [address] MCHC (RBC) [Mass/Vol] 34.1 g/dL Normal 32-36 [facility] Comment on above: Performed By: #### L 501.4020, L100.0100, L500.2500, L300.3900, L300.4310 ####[facility] [address] [place], [address] MCV (RBC) [Entitic vol] 94.4 fL Normal 81-99 [facility] Comment on above: Performed By: #### L 501.4020, L100.0100, L500.2500, L300.3900, L300.4310 ####[facility] [address] [place], [address] Monocytes/100 WBC (Bld) 8.7 % Normal 0-10 [facility] Comment on above: Performed By: #### L 501.4020, L100.0100, L500.2500, L300.3900, L300.4310 ####[facility] [address] [place], [address] Neutrophils/100 WBC (Bld) 75.8 % High 47-70 [facility] Comment on above: Performed By: #### L 501.4020, L100.0100, L500.2500, L300.3900, L300.4310 ####[facility] [address] [place], [address] Nucleated RBC (Bld) [#/Vol] 0 10*3/uL Normal 0-5 [facility] Comment on above: Performed By: #### L 501.4020, L100.0100, L500.2500, L300.3900, L300.4310 ####[facility] [address] [place], [address] Platelet mean volume (Bld) [Entitic vol] 10.0 fL Normal 6.2-12.0 [facility] Comment on above: Performed By: #### L 501.4020, L100.0100, L500.2500, L300.3900, L300.4310 ####[facility] [address] [place], [address] Platelets (Bld) [#/Vol] 278 10*3/uL Normal 150-450 [facility] Comment on above: Performed By: #### L 501.4020, L100.0100, L500.2500, L300.3900, L300.4310 ####[facility] [address] [place], [address] RBC (Bld) [#/Vol] 3.57 10*6/uL Low 4.2-5.4 [facility] Comment on above: Performed By: #### L 501.4020, L100.0100, L500.2500, L300.3900, L300.4310 ####[facility] [address] [place], [address] RDW SD 44.3 fl High 35.1-43.9 [facility] Comment on above: Performed By: #### L 501.4020, L100.0100, L500.2500, L300.3900, L300.4310 ####[facility] [address] [place], [address] WBC (Bld) [#/Vol] 10.6 10*3/uL Normal 4.4-11.0 [facility] Comment on above: Performed By: #### L 501.4020, L100.0100, L500.2500, L300.3900, L300.4310 ####[facility] [address] [place], [address] Carotid Duplex Ultrasoundon 08-25-2024 Carotid Duplex Ultrasound Normal [facility] Chest 1 Viewon 08-25-2024 Chest 1 View Normal [facility] Emergency Department Summary on 08-25-2024 Emergency Department Summary Normal [facility] H AND P Exam - Hospitaliston 08-25-2024 H&P Exam - Hospitalist Normal [facility] L501.4020on 08-25-2024 TROPONIN-I HS 7 pg/mL Normal 3.0-54.0 [facility] Comment on above: Order Comment: 'TROP ' Serial specimen #1, #2 or #3: 1 Result Comment: Leticia em Note: New Test Units and Gender Specific Reference Ranges. For more information see Policy Stat Procedure [place] High Sensitivity Troponin (TNIH) and attachments. Performed By: #### L 501.4020, L100.0100, L500.2500, L300.3900, L300.4310 ####[facility] [address] [place], [address] Partial Thromboplast Timeon 08-25-2024 aPTT Coag (Bld) [Time] 23.0 s Low 24.1-36.[address] [facility] Comment on above: Performed By: #### L 501.4020, L100.0100, L500.2500, L300.3900, L300.4310 ####[facility] [address] [place], [address] Prothrombin Time w/INRon INR Coag (PPP) [Relative time] 1.1 {INR} Normal [facility] Comment on above: Performed By: #### L 501.4020, L100.0100, L500.2500, L300.3900, L300.4310 ####[facility] [address] [place], [address] PT Coag (PPP) [Time] 14.1 s Normal 11.7-14.9 [facility] Comment on above: Performed By: #### L 501.4020, L100.0100, L500.2500, L300.3900, L300.4310 ####[facility] [address] [place], [address] STROKE Brain/Head without Co nton 08-25-2024 STROKE Brain/Head without Cont Normal [facility] STROKE CTA Head AND Neck W/C onon 08-25-2024 STROKE CTA Head AND Neck W/Con Normal [facility] Urinalysis, Completeon 08-25 EPI,SQUAMOUS 5-10 SEEN Normal 5-10 [facility] Comment on above: Order Comment: COLLE CTOR TO SPECIFY Performed By: #### L 400.0001 ####[facility] [address] [place], [address] RBC 0-5 SEEN Normal 0-5 [facility] Comment on above: Order Comment: COLLE CTOR TO SPECIFY Performed By: #### L 400.0001 ####[facility] [address] [place], [address] WBC >100 SEEN Normal 0-5 [facility] Comment on above: Order Comment: COLLE CTOR TO SPECIFY Performed By: #### L 400.0001 ####[facility] [address] [place], [address] YEAST 4+ /hpf Normal None Seen [facility] Comment on above: Order Comment: COLLE CTOR TO SPECIFY Performed By: #### L 400.0001 ####[facility] [address] [place], [address] BACTERIA 0 SEEN Normal None Seen [facility] Comment on above: Order Comment: ERICKSON CTOR TO SPECIFY Performed By: #### L 400.0001 ####[facility] [address] [place], [address] Mucus Ql (Urine sed) 0 SEEN Normal [facility] Comment on above: Order Comment: ERICKSON CTOR TO SPECIFY Performed By: #### L 400.0001 ####[facility] [address] [place], [address] Bedside Glucoseon 08-24-2024 FINGERSTICK GLU 248 mg/dL High 74-106 [facility] Comment on above: Result Comment: OLGA GEMENT OF PATIENT CARE PER NURSING PROTOCOL Performed By: #### L 501.080 ####[facility] [address] [place], [address] FINGERSTICK GLU 234 mg/dL High 74-106 [facility] Comment on above: Result Comment: OLGA GEMENT OF PATIENT CARE PER NURSING PROTOCOL Performed By: #### L 501.080 ####[facility] [address] [place], [address] FINGERSTICK GLU 332 mg/dL High 74-106 [facility] Comment on above: Result Comment: OLGA GEMENT OF PATIENT CARE PER NURSING PROTOCOL Performed By: #### L 501.080 ####[facility] [address] [place], [address] FINGERSTICK GLU 185 mg/dL High 74-106 [facility] Comment on above: Result Comment: OLGA GEMENT OF PATIENT CARE PER NURSING PROTOCOL Performed By: #### L 501.080 ####[facility] [address] [place], [address] Bedside Glucoseon 08-23-2024 FINGERSTICK GLU 132 mg/dL High [facility]106 [facility] Comment on above: Result Comment: OLGA GEMENT OF PATIENT CARE PER NURSING PROTOCOL Performed By: #### L 501.080 ####[facility] [address] [place], [address] FINGERSTICK GLU 117 mg/dL [address] Comment on above: Result Comment: OLGA GEMENT OF PATIENT CARE PER NURSING PROTOCOL Performed By: #### L 501.080 ####[facility] [address] [place], [address] FINGERSTICK GLU 225 mg/dL High [facility]106 [facility] Comment on above: Result Comment: OLGA GEMENT OF PATIENT CARE PER NURSING PROTOCOL Performed By: #### L 501.080 ####[facility] [address] [place], [address] FINGERSTICK GLU 227 mg/dL High [address] [place] [address] Comment on above: Result Comment: OLGA GEMENT OF PATIENT CARE PER NURSING PROTOCOL Performed By: #### L 501.080 ####[facility] [address] [place], [address] Basic Metabolic Profile (BMP )on 08-22-2024 BUN/CRE 25.1 RATIO High 10-20 [facility] Comment on above: Performed By: #### L 100.0100, L500.2500 ####[facility] [address] [place], [address] CA,Total 9.1 mg/dL Normal 8.5-10.1 [facility] Comment on above: Performed By: #### L 100.0100, L500.2500 ####[facility] [address] [place], [address] Chloride [Moles/Vol] 105 mmol/L Normal 98-107 [facility] Comment on above: Performed By: #### L 100.0100, L500.2500 ####[facility] [address] [place], [address] CO2 [Moles/Vol] 28.0 mmol/L Normal 21.0-32.0 [facility] Comment on above: Performed By: #### L 100.0100, L500.2500 ####[facility] [address] [place], [address] Creatinine [Mass/Vol] 0.84 mg/dL Normal 0.55-1.02 [facility] Comment on above: Result Comment: The validity of the calculated GFR GFRAA in patients over70 years has not been determined. Clinical correlation isessential. Performed By: #### L 100.0100, L500.2500 ####[facility] [address] [place], [address] ECRCL 47.65 ml/min Normal [facility] Comment on above: Performed By: #### L 100.0100, L500.2500 ####[facility] [address] [place], [address] EST GFR - AA 84 mL/min Normal >60 [facility] Comment on above: Result Comment: Afri can Liberian GFR Calc Performed By: #### L 100.0100, L500.2500 ####[facility] [address] [place], [address] GAP 5 Normal 5-15 [facility] Comment on above: Performed By: #### L 100.0100, L500.2500 ####[facility] [address] [place], [address] GFR/1.73 sq M.predicted among non-blacks MDRD (S/P/Bld) [Vol rate/Area] 69 mL/min/{1.73_m2} Normal >60 [facility] Comment on above: Result Comment: Non- GFR Calc Performed By: #### L 100.0100, L500.2500 ####[facility] [address] [place], [address] Glucose [Mass/Vol] 181 mg/dL High 74-106 [facility] Comment on above: Result Comment: Fast ing Glucose result greater than or equal to 126 mg/dLsuggests DIABETES MELLITUS per A.D.A. criteria. Performed By: #### L 100.0100, L500.2500 ####[facility] [address] [place], [address] Potassium [Moles/Vol] 4.0 mmol/L Normal 3.5-5.1 [facility] [facility] Comment on above: Performed By: #### L 100.0100, L500.2500 ####[facility] [address] [place], [address] Sodium [Moles/Vol] 138 mmol/L Normal 136-145 [facility] Comment on above: Performed By: #### L 100.0100, L500.2500 ####[facility] [address] [place], [address] Urea nitrogen [Mass/Vol] 21 mg/dL High 7-18 [facility] Comment on above: Performed By: #### L 100.0100, L500.2500 ####[facility] [address] [place], [address] Bedside Glucoseon 08-22-2024 FINGERSTICK GLU 141 mg/dL High 74-106 [facility] Comment on above: Result Comment: OLGA GEMENT OF PATIENT CARE PER NURSING PROTOCOL Performed By: #### L 501.080 ####[facility] [address] [place], [address] FINGERSTICK GLU 147 mg/dL High 74-106 [facility] Comment on above: Result Comment: OLGA GEMENT OF PATIENT CARE PER NURSING PROTOCOL Performed By: #### L 501.080 ####[facility] [address] [place], [address] FINGERSTICK GLU 216 mg/dL High 74-106 [facility] Comment on above: Result Comment: OLGA GEMENT OF PATIENT CARE PER NURSING PROTOCOL Performed By: #### L 501.080 ####[facility] [address] [place], [address] FINGERSTICK GLU 163 mg/dL High 74-106 [facility] Comment on above: Result Comment: OLGA GEMENT OF PATIENT CARE PER NURSING PROTOCOL Performed By: #### L 501.080 ####[facility] [address] [place], [address] CBC W/Diff, Automatedon 01-1 0-2025 Absolute Lymph 1.53 X10 3/uL Normal 0.83-4.51 [facility] Comment on above: Performed By: #### L 100.0100, L500.2500 ####[facility] [address] [place], [address] Absolute Neut 3.6 X10 3/uL Normal 2.0-7.7 [facility] Comment on above: Performed By: #### L 100.0100, L500.2500 ####[facility] [address] [place], [address] Basophils/100 WBC (Bld) 0.8 % Normal 0-1 [facility] Comment on above: Performed By: #### L 100.0100, L500.2500 ####[facility] [address] [place], [address] Eosinophils/100 WBC (Bld) 6.1 % High 0-5 [facility] Comment on above: Performed By: #### L 100.0100, L500.2500 ####[facility] [address] [place], [address] Erythrocyte distribution width (RBC) [Ratio] 12.9 % Normal 11.6-14.6 [facility] Comment on above: Performed By: #### L 100.0100, L500.2500 ####[facility] [address] [place], [address] Hematocrit (Bld) [Volume fraction] 35.4 % Low 37-47 [facility] Comment on above: Performed By: #### L 100.0100, L500.2500 ####[facility] [address] [place], [address] Hemoglobin (Bld) [Mass/Vol] 11.8 g/dL Low 12.0-15.0 [facility] Comment on above: Performed By: #### L 100.0100, L500.2500 ####[facility] [address] [place], [address] IG% 0.300 Normal 0.0-0.9 [facility] Comment on above: Result Comment: IG% - Immature Granulocytes (promyelocytes, myelocytes andmetamyelocytes) > 1% indicates that a LEFT SHIFT is Present. Performed By: #### L 100.0100, L500.2500 ####[facility] [address] [place], [address] Lymphocytes/100 WBC (Bld) 24.4 % Normal 19-41 [facility] Comment on above: Performed By: #### L 100.0100, L500.2500 ####[facility] [address] [place], [address] MCH (RBC) [Entitic mass] 31.7 pg Normal 27.0-32.0 [facility] Comment on above: Performed By: #### L 100.0100, L500.2500 ####[facility] [address] [place], [address] MCHC (RBC) [Mass/Vol] 33.3 g/dL Normal 32-36 [facility] Comment on above: Performed By: #### L 100.0100, L500.2500 ####[facility] [address] [place], [address] MCV (RBC) [Entitic vol] 95.2 fL Normal 81-99 [facility] Comment on above: Performed By: #### L 100.0100, L500.2500 ####[facility] [address] [place], [address] Monocytes/100 WBC (Bld) 11.8 % High 0-10 [facility] Comment on above: Performed By: #### L 100.0100, L500.2500 ####[facility] [address] [place], [address] Neutrophils/100 WBC (Bld) 56.6 % Normal 47-70 [facility] Comment on above: Performed By: #### L 100.0100, L500.2500 ####[facility] [address] [place], [address] Nucleated RBC (Bld) [#/Vol] 0 10*3/uL Normal 0-5 [facility] Comment on above: Performed By: #### L 100.0100, L500.2500 ####[facility] [address] [place], [address] Platelet mean volume (Bld) [Entitic vol] 9.9 fL Normal 6.2-12.0 [facility] Comment on above: Performed By: #### L 100.0100, L500.2500 ####[facility] [address] [place], [address] Platelets (Bld) [#/Vol] 263 10*3/uL Normal 150-450 [facility] Comment on above: Performed By: #### L 100.0100, L500.2500 ####[facility] [address] [place], [address] RBC (Bld) [#/Vol] 3.72 10*6/uL Low 4.2-5.4 [facility] Comment on above: Performed By: #### L 100.0100, L500.2500 ####[facility] [address] [place], [address] RDW SD 44.8 fl High 35.1-43.9 [facility] Comment on above: Performed By: #### L 100.0100, L500.2500 ####[facility] [address] [place], [address] WBC (Bld) [#/Vol] 6.3 10*3/uL Normal 4.4-11.0 [facility] Comment on above: Performed By: #### L 100.0100, L500.2500 ####[facility] [address] [place], [address] Bedside Glucoseon 08-21-2024 FINGERSTICK GLU 178 mg/dL High 74-106 [facility] Comment on above: Result Comment: OLGA GEMENT OF PATIENT CARE PER NURSING PROTOCOL Performed By: #### L 501.080 ####[facility] [address] [place], [address] FINGERSTICK GLU 175 mg/dL High 74-106 [facility] Comment on above: Result Comment: OLGA GEMENT OF PATIENT CARE PER NURSING PROTOCOL Performed By: #### L 501.080 ####[facility] [address] [place], [address] FINGERSTICK GLU 224 mg/dL High 74-106 [facility] Comment on above: Result Comment: LOGA GEMENT OF PATIENT CARE PER NURSING PROTOCOL Performed By: #### L 501.080 ####[facility] [address] [place], [address] FINGERSTICK GLU 182 mg/dL High 74-106 [facility] Comment on above: Result Comment: OLGA GEMENT OF PATIENT CARE PER NURSING PROTOCOL Performed By: #### L 501.080 ####[facility] [address] [place], [address] Bedside Glucoseon 08-20-2024 FINGERSTICK GLU 118 mg/dL High -[address] [place] [address] Comment on above: Result Comment: OLGA GEMENT OF PATIENT CARE PER NURSING PROTOCOL Performed By: #### L 501.080 ####[facility] [address] [facility] [address] FINGERSTICK GLU 151 mg/dL High 74-[address] [place] [address] Comment on above: Result Comment: OLGA GEMENT OF PATIENT CARE PER NURSING PROTOCOL Performed By: #### L 501.080 ####[facility] [address] [place], [address] FINGERSTICK GLU 372 mg/dL High -[address] [place] [address] Comment on above: Result Comment: OLGA GEMENT OF PATIENT CARE PER NURSING PROTOCOL Performed By: #### L 501.080 ####[facility] [address] [place], [address] FINGERSTICK GLU 179 mg/dL High -[address] [place] [address] Comment on above: Result Comment: OLGA GEMENT OF PATIENT CARE PER NURSING PROTOCOL Performed By: #### L 501.080 ####[facility] [address] [place], [address] Bedside Glucoseon 08-19-2024 FINGERSTICK GLU 105 mg/dL Normal 74-106 [facility] Comment on above: Result Comment: OLGA GEMENT OF PATIENT CARE PER NURSING PROTOCOL Performed By: #### L 501.080 ####[facility] [address] [place], [address] FINGERSTICK GLU 155 mg/dL High [address] [place] [address] Comment on above: Result Comment: OLGA GEMENT OF PATIENT CARE PER NURSING PROTOCOL Performed By: #### L 501.080 ####[facility] [address] [place], [address] FINGERSTICK GLU 316 mg/dL High [address] [place] [address] Comment on above: Result Comment: OLGA GEMENT OF PATIENT CARE PER NURSING PROTOCOL Performed By: #### L 501.080 ####[facility] [address] [place], [address] FINGERSTICK GLU 210 mg/dL High [address] [place] [address] Comment on above: Result Comment: OLGA GEMENT OF PATIENT CARE PER NURSING PROTOCOL Performed By: #### L 501.080 ####[facility] [address] [place], [address] Bedside Glucoseon 08-18-2024 FINGERSTICK GLU 243 mg/dL High [address] [place] [address] Comment on above: Result Comment: OLGA GEMENT OF PATIENT CARE PER NURSING PROTOCOL Performed By: #### L 501.080 ####[facility] [address] [place], [address] FINGERSTICK GLU 229 mg/dL High [address] [place] [address] Comment on above: Result Comment: OLGA GEMENT OF PATIENT CARE PER NURSING PROTOCOL Performed By: #### L 501.080 ####[facility] [address] [place], [address] FINGERSTICK GLU 333 mg/dL High [address] [place] [address] Comment on above: Result Comment: OLGA GEMENT OF PATIENT CARE PER NURSING PROTOCOL Performed By: #### L 501.080 ####[facility] [address] [place], [address] FINGERSTICK GLU 279 mg/dL High 74-106 [facility] Comment on above: Result Comment: OLGA GEMENT OF PATIENT CARE PER NURSING PROTOCOL Performed By: #### L 501.080 ####[facility] [address] [place], [address] Vitamin D,25 Hydroxyon 08-18 Vitamin D 25-OH 43.3 ng/mL Normal [facility] Comment on above: Result Comment: Shamika min D 25(OH) Status Range Deficiency <20 ng/mL (50nmol/L) Insufficiency 20 - 30 ng/mL (50 - 75 nmol/L) Sufficiency 30 - 100 ng/mL (75 - 250 nmol/L) Toxicity >100 ng/mL (>250 nmol/L) Performed By: #### L 506.1000 ####[facility] [address] [place], [address] Bedside Glucoseon 08-17-2024 FINGERSTICK GLU 272 mg/dL High [address] [place] [address] Comment on above: Result Comment: OLGA GEMENT OF PATIENT CARE PER NURSING PROTOCOL Performed By: #### L 501.080 ####[facility] [address] [place], [address] FINGERSTICK GLU 303 mg/dL High [address] [place] [address] Comment on above: Result Comment: OLGA GEMENT OF PATIENT CARE PER NURSING PROTOCOL Performed By: #### L 501.080 ####[facility] [address] [place], [address] FINGERSTICK GLU 248 mg/dL High [address] [place] [address] Comment on above: Result Comment: OLGA GEMENT OF PATIENT CARE PER NURSING PROTOCOL Performed By: #### L 501.080 ####[facility] [address] [place], [address] FINGERSTICK GLU 337 mg/dL High -106 [facility] Comment on above: Result Comment: OLGA GEMENT OF PATIENT CARE PER NURSING PROTOCOL Performed By: #### L 501.080 ####[facility] [address] [place], [address] FINGERSTICK GLU 268 mg/dL High 74-106 [facility] Comment on above: Result Comment: OLGA GEMENT OF PATIENT CARE PER NURSING PROTOCOL Performed By: #### L 501.080 ####[facility] [address] [place], [address] Bedside Glucoseon 08-16-2024 FINGERSTICK GLU 317 mg/dL High 74-106 [facility] Comment on above: Result Comment: OLGA GEMENT OF PATIENT CARE PER NURSING PROTOCOL Performed By: #### L 501.080 ####[facility] [address] [place], [address] FINGERSTICK GLU 74 mg/dL Normal 74-106 [facility] Comment on above: Result Comment: OLGA GEMENT OF PATIENT CARE PER NURSING PROTOCOL Performed By: #### L 501.080 ####[facility] [address] [place], [address] FINGERSTICK GLU 58 mg/dL Low 74-106 [facility] Comment on above: Result Comment: OLGA GEMENT OF PATIENT CARE PER NURSING PROTOCOL Performed By: #### L 501.080 ####[facility] [address] [place], [address] FINGERSTICK GLU 45 mg/dL Low 74-106 [facility] Comment on above: Result Comment: OLGA GEMENT OF PATIENT CARE PER NURSING PROTOCOL Performed By: #### L 501.080 ####[facility] [address] [place], [address] FINGERSTICK GLU 214 mg/dL High 74-106 [facility] Comment on above: Result Comment: OLGA GEMENT OF PATIENT CARE PER NURSING PROTOCOL Performed By: #### L 501.080 ####[facility] [address] [place], [address] FINGERSTICK GLU 194 mg/dL High 74-106 [facility] Comment on above: Result Comment: OLGA GOMEZ OF PATIENT CARE PER NURSING PROTOCOL Performed By: #### L 501.080 ####[facility] [address] [place], [address] Basic Metabolic Profile (BMP )on 08-15-2024 BUN/CRE 27.6 RATIO High 10-20 [facility] Comment on above: Performed By: #### L 500.4100, L500.2500, L100.0100 ####[facility] [address] [place], [address] CA,Total 9.2 mg/dL Normal 8.5-10.1 [facility] Comment on above: Performed By: #### L 500.4100, L500.2500, L100.0100 ####[facility] [address] [place], [address] Chloride [Moles/Vol] 104 mmol/L Normal 98-107 [facility] Comment on above: Performed By: #### L 500.4100, L500.2500, L100.0100 ####[facility] [address] [place], [address] CO2 [Moles/Vol] 27.0 mmol/L Normal 21.0-32.0 [facility] Comment on above: Performed By: #### L 500.4100, L500.2500, L100.0100 ####[facility] [address] [place], [address] Creatinine [Mass/Vol] 0.83 mg/dL Normal 0.55-1.02 [facility] Comment on above: Result Comment: The validity of the calculated GFR GFRAA in patients over70 years has not been determined. Clinical correlation isessential. Performed By: #### L 500.4100, L500.2500, L100.0100 ####[facility] [address] [place], [address] ECRCL 48.36 ml/min Normal [facility] Comment on above: Performed By: #### L 500.4100, L500.2500, L100.0100 ####[facility] [address] [place], [address] EST GFR - AA 84 mL/min Normal >60 [facility] Comment on above: Result Comment: Afri can Liberian GFR Calc Performed By: #### L 500.4100, L500.2500, L100.0100 ####[facility] [address] [place], [address] GAP 6 Normal 5-15 [facility] Comment on above: Performed By: #### L 500.4100, L500.2500, L100.0100 ####[facility] [address] [place], [address] GFR/1.73 sq M.predicted among non-blacks MDRD (S/P/Bld) [Vol rate/Area] 70 mL/min/{1.73_m2} Normal >60 [facility] Comment on above: Result Comment: Non- GFR Calc Performed By: #### L 500.4100, L500.2500, L100.0100 ####[facility] [address] [place], [address] Glucose [Mass/Vol] 198 mg/dL High 74-106 [facility] Comment on above: Result Comment: Fast ing Glucose result greater than or equal to 126 mg/dLsuggests DIABETES MELLITUS per A.D.A. criteria. Performed By: #### L 500.4100, L500.2500, L100.0100 ####[facility] [address] [place], [address] Potassium [Moles/Vol] 4.1 mmol/L Normal 3.5-5.1 [facility] Comment on above: Performed By: #### L 500.4100, L500.2500, L100.0100 ####[facility] [address] [place], [address] Sodium [Moles/Vol] 136 mmol/L Normal 136-145 [facility] Comment on above: Performed By: #### L 500.4100, L500.2500, L100.0100 ####[facility] [address] [place], [address] Urea nitrogen [Mass/Vol] 23 mg/dL High 7-18 [facility] Comment on above: Performed By: #### L 500.4100, L500.2500, L100.0100 ####[facility] [address] [place], [address] Bedside Glucoseon 08-15-2024 FINGERSTICK GLU 238 mg/dL High 74-106 [facility] Comment on above: Result Comment: OLGA GEMENT OF PATIENT CARE PER NURSING PROTOCOL Performed By: #### L 501.080 ####[facility] [address] [place], [address] FINGERSTICK GLU 131 mg/dL High 74-106 [facility] Comment on above: Result Comment: OLGA GEMENT OF PATIENT CARE PER NURSING PROTOCOL Performed By: #### L 501.080 ####[facility] [address] [place], [address] FINGERSTICK GLU 212 mg/dL High 74-106 [facility] Comment on above: Result Comment: OLGA GEMENT OF PATIENT CARE PER NURSING PROTOCOL Performed By: #### L 501.080 ####[facility] [address] [place], [address] FINGERSTICK GLU 183 mg/dL High 74-106 [facility] Comment on above: Result Comment: OLGA GEMENT OF PATIENT CARE PER NURSING PROTOCOL Performed By: #### L 501.080 ####[facility] [address] [place], [address] CBC W/Diff, Automatedon 01-0 3-2024 Absolute Lymph 1.54 X10 3/uL Normal 0.83-4.51 [facility] Comment on above: Performed By: #### L 500.4100, L500.2500, L100.0100 ####[facility] [address] [place], [address] Absolute Neut 5.3 X10 3/uL Normal 2.0-7.7 [facility] Comment on above: Performed By: #### L 500.4100, L500.2500, L100.0100 ####[facility] [address] [place], [address] Basophils/100 WBC (Bld) 0.7 % Normal 0-1 [facility] Comment on above: Performed By: #### L 500.4100, L500.2500, L100.0100 ####[facility] [address] [place], [address] Eosinophils/100 WBC (Bld) 5.3 % High 0-5 [facility] Comment on above: Performed By: #### L 500.4100, L500.2500, L100.0100 ####[facility] [address] [place], [address] Erythrocyte distribution width (RBC) [Ratio] 13.1 % Normal 11.6-14.6 [facility] Comment on above: Performed By: #### L 500.4100, L500.2500, L100.0100 ####[facility] [address] [place], [address] Hematocrit (Bld) [Volume fraction] 37.6 % Normal 37-47 [facility] Comment on above: Performed By: #### L 500.4100, L500.2500, L100.0100 ####[facility] [address] [place], [address] Hemoglobin (Bld) [Mass/Vol] 12.7 g/dL Normal 12.0-15.0 [facility] Comment on above: Performed By: #### L 500.4100, L500.2500, L100.0100 ####[facility] [address] [place], [address] IG% 0.200 Normal 0.0-0.9 [facility] Comment on above: Result Comment: IG% - Immature Granulocytes (promyelocytes, myelocytes andmetamyelocytes) > 1% indicates that a LEFT SHIFT is Present. Performed By: #### L 500.4100, L500.2500, L100.0100 ####[facility] [address] [place], [address] Lymphocytes/100 WBC (Bld) 19.0 % Normal 19-41 [facility] Comment on above: Performed By: #### L 500.4100, L500.2500, L100.0100 ####[facility] [address] [place], [address] MCH (RBC) [Entitic mass] 31.9 pg Normal 27.0-32.0 [facility] Comment on above: Performed By: #### L 500.4100, L500.2500, L100.0100 ####[facility] [address] [place], [address] MCHC (RBC) [Mass/Vol] 33.8 g/dL Normal 32-36 [facility] Comment on above: Performed By: #### L 500.4100, L500.2500, L100.0100 ####[facility] [address] [place], [address] MCV (RBC) [Entitic vol] 94.5 fL Normal 81-99 [facility] Comment on above: Performed By: #### L 500.4100, L500.2500, L100.0100 ####[facility] [address] [place], [address] Monocytes/100 WBC (Bld) 10.1 % High 0-10 [facility] Comment on above: Performed By: #### L 500.4100, L500.2500, L100.0100 ####[facility] [address] [place], [address] Neutrophils/100 WBC (Bld) 64.7 % Normal 47-70 [facility] Comment on above: Performed By: #### L 500.4100, L500.2500, L100.0100 ####[facility] [address] [place], [address] Nucleated RBC (Bld) [#/Vol] 0 10*3/uL Normal 0-5 [facility] Comment on above: Performed By: #### L 500.4100, L500.2500, L100.0100 ####[facility] [address] [place], [address] Platelet mean volume (Bld) [Entitic vol] 9.9 fL Normal 6.2-12.0 [facility] Comment on above: Performed By: #### L 500.4100, L500.2500, L100.0100 ####[facility] [address] [place], [address] Platelets (Bld) [#/Vol] 270 10*3/uL Normal 150-450 [facility] Comment on above: Performed By: #### L 500.4100, L500.2500, L100.0100 ####[facility] [address] [place], [address] RBC (Bld) [#/Vol] 3.98 10*6/uL Low 4.2-5.4 [facility] Comment on above: Performed By: #### L 500.4100, L500.2500, L100.0100 ####[facility] [address] [place], [address] RDW SD 45.0 fl High 35.1-43.9 [facility] Comment on above: Performed By: #### L 500.4100, L500.2500, L100.0100 ####[facility] [address] [place], [address] WBC (Bld) [#/Vol] 8.1 10*3/uL Normal 4.4-11.0 [facility] Comment on above: Performed By: #### L 500.4100, L500.2500, L100.0100 ####[facility] [address] [place], [address] Lipid Profileon 08-15-2024 Cholesterol [Mass/Vol] 165 mg/dL Normal [address] [facility] Comment on above: Result Comment: <200 mg/dL Desirable 200-240 mg/dL Borderline >240 mg/dL High Risk Performed By: #### L 500.4100, L500.2500, L100.0100 ####[facility] [address] [place], [address] Cholesterol in HDL [Mass/Vol] 61 mg/dL Normal [facility] Comment on above: Result Comment: The drugs N-Acetylcysteine and Metamizole may falselydepress this assay. Reference Range HDL <40 mg/dL Low HDL Cholesterol HDL >or= 60 mg/dL High HDL Cholesterol Performed By: #### L 500.4100, L500.2500, L100.0100 ####[facility] [address] [place], [address] Cholesterol in LDL [Mass/Vol] 75 mg/dL Normal 0-130 [facility] Comment on above: Performed By: #### L 500.4100, L500.2500, L100.0100 ####[facility] [address] [place], [address] Cholesterol in VLDL [Mass/Vol] 29 mg/dL Normal 5-40 [facility] Comment on above: Performed By: #### L 500.4100, L500.2500, L100.0100 ####[facility] [address] [place], [address] Triglyceride [Mass/Vol] 147 mg/dL Normal [facility] Comment on above: Result Comment: The drugs N-Acetylcysteine and Metamizole may falselydepress this assay.Serum Triglycerides Reference Interval Normal <150 mg/dL Borderline high 150 - 199 mg/dL High 200 - 499 mg/dL Very High > or = 500 mg/dL Performed By: #### L 500.4100, L500.2500, L100.0100 ####[facility] [address] [place], [address] Bedside Glucoseon 08-14-2024 FINGERSTICK GLU 153 mg/dL High 74-106 [facility] Comment on above: Result Comment: OLGA GEMENT OF PATIENT CARE PER NURSING PROTOCOL Performed By: #### L 501.080 ####[facility] [address] [place], [address] FINGERSTICK GLU 147 mg/dL High 74-106 [facility] Comment on above: Result Comment: OLGA GEMENT OF PATIENT CARE PER NURSING PROTOCOL Performed By: #### L 501.080 ####[facility] [address] [place], [address] FINGERSTICK GLU 209 mg/dL High 74-106 [facility] Comment on above: Result Comment: OLGA GEMENT OF PATIENT CARE PER NURSING PROTOCOL Performed By: #### L 501.080 ####[facility] [address] [place], [address] FINGERSTICK GLU 231 mg/dL High 74-106 [facility] Comment on above: Result Comment: OLGA GEMENT OF PATIENT CARE PER NURSING PROTOCOL Performed By: #### L 501.080 ####[facility] [address] [place], [address] Bedside Glucoseon 08-13-2024 FINGERSTICK GLU 258 mg/dL High 74-106 [facility] Comment on above: Result Comment: OLGA GEMENT OF PATIENT CARE PER NURSING PROTOCOL Performed By: #### L 501.080 ####[facility] [address] [place], [address] FINGERSTICK GLU 146 mg/dL High 74-106 [facility] Comment on above: Result Comment: OLGA GEMENT OF PATIENT CARE PER NURSING PROTOCOL Performed By: #### L 501.080 ####[facility] [address] [place], [address] FINGERSTICK GLU 79 mg/dL Normal 74-106 [facility] Comment on above: Result Comment: OLGA GEMENT OF PATIENT CARE PER NURSING PROTOCOL Performed By: #### L 501.080 ####[facility] [address] [place], [address] FINGERSTICK GLU 63 mg/dL Low 74-106 [facility] Comment on above: Result Comment: OLGA GEMENT OF PATIENT CARE PER NURSING PROTOCOL Performed By: #### L 501.080 ####[facility] [address] [place], [address] FINGERSTICK GLU 78 mg/dL Normal 74-106 [facility] Comment on above: Result Comment: OLGA GEMENT OF PATIENT CARE PER NURSING PROTOCOL Performed By: #### L 501.080 ####[facility] [address] [place], [address] FINGERSTICK GLU 234 mg/dL High 74-106 [facility] Comment on above: Result Comment: OLGA GEMENT OF PATIENT CARE PER NURSING PROTOCOL Performed By: #### L 501.080 ####[facility] [address] [place], [address] FINGERSTICK GLU 125 mg/dL High 74-106 [facility] Comment on above: Result Comment: OLGA GEMENT OF PATIENT CARE PER NURSING PROTOCOL Performed By: #### L 501.080 ####[facility] [address] [place], [address] CTA Head AND Neck W/ Contras ton 08-13-2024 CTA Head AND Neck W/ Contrast Normal [facility] Thyroid Peroxidase ABon 01-0 THYR PEROX AB 12 IU/mL Normal 0-34 [facility] Comment on above: Result Comment: Perf ormed at: - [facility] [address] [id number] Director: Marco Antonio Diaz PhD, Phone: [phone] Performed By: #### L 5815.8366 ####[facility] [address] [place], [address] Bedside Glucoseon 08-12-2024 FINGERSTICK GLU 157 mg/dL High [address] [facility] Comment on above: Result Comment: OLGA GEMENT OF PATIENT CARE PER NURSING PROTOCOL Performed By: #### L 501.080 ####[facility] [address] [place], [address] FINGERSTICK GLU 195 mg/dL High -106 [facility] Comment on above: Result Comment: OLGA GEMENT OF PATIENT CARE PER NURSING PROTOCOL Performed By: #### L 501.080 ####[facility] [address] [place], [address] FINGERSTICK GLU 324 mg/dL High 74-106 [facility] Comment on above: Result Comment: OLGA GEMENT OF PATIENT CARE PER NURSING PROTOCOL Performed By: #### L 501.080 ####[facility] [address] [place], [address] FINGERSTICK GLU 137 mg/dL High [facility]106 [facility] Comment on above: Result Comment: OLGA GEMENT OF PATIENT CARE PER NURSING PROTOCOL Performed By: #### L 501.080 ####[facility] [address] [place], [address] Brain without Contraston Brain without Contrast Normal [facility] Bedside Glucoseon 08-11-2024 FINGERSTICK GLU 173 mg/dL High 74-106 [facility] Comment on above: Result Comment: OLGA GEMENT OF PATIENT CARE PER NURSING PROTOCOL Performed By: #### L 501.080 ####[facility] [address] [place], [address] FINGERSTICK GLU 152 mg/dL High 74-106 [facility] Comment on above: Result Comment: OLGA GEMENT OF PATIENT CARE PER NURSING PROTOCOL Performed By: #### L 501.080 ####[facility] [address] [place], [address] FINGERSTICK GLU 333 mg/dL High -106 [facility] Comment on above: Result Comment: OLGA GEMENT OF PATIENT CARE PER NURSING PROTOCOL Performed By: #### L 501.080 ####[facility] [address] [place], [address] FINGERSTICK GLU 190 mg/dL High -106 [facility] Comment on above: Result Comment: OLGA GEMENT OF PATIENT CARE PER NURSING PROTOCOL Performed By: #### L 501.080 ####[facility] [address] [place], [address] T4 Free Directon 08-11-2024 T4 FREE DIRECT 1.14 ng/dL Normal 0.76-1.46 [facility] Comment on above: Order Comment: OKAY TO ADD PER DR PASTOR Performed By: #### L 506.0400 ####[facility] [address] [place], [address] Bedside Glucoseon 08-10-2024 FINGERSTICK GLU 195 mg/dL High 74-106 [facility] Comment on above: Result Comment: OLGA GEMENT OF PATIENT CARE PER NURSING PROTOCOL Performed By: #### L 501.080 ####[facility] [address] [place], [address] FINGERSTICK GLU 217 mg/dL High 74-106 [facility] Comment on above: Result Comment: OLGA GEMENT OF PATIENT CARE PER NURSING PROTOCOL Performed By: #### L 501.080 ####[facility] [address], [address] FINGERSTICK GLU 301 mg/dL High 74-106 [facility] Comment on above: Result Comment: OLGA GEMENT OF PATIENT CARE PER NURSING PROTOCOL Performed By: #### L 501.080 ####[facility] [address] [place], [address] FINGERSTICK GLU 113 mg/dL High -106 [facility] Comment on above: Result Comment: OLGA GEMENT OF PATIENT CARE PER NURSING PROTOCOL Performed By: #### L 501.080 ####[facility] [address] [place], [address] FINGERSTICK GLU 247 mg/dL High [address] [place] [address] Comment on above: Result Comment: OLGA GEMENT OF PATIENT CARE PER NURSING PROTOCOL Performed By: #### L 501.080 ####[facility] [address] [place], [address] Bedside Glucoseon 08-09-2024 FINGERSTICK GLU 130 mg/dL High -[address] [place] [address] Comment on above: Result Comment: OLGA GEMENT OF PATIENT CARE PER NURSING PROTOCOL Performed By: #### L 501.080 ####[facility] [address] [place], [address] FINGERSTICK GLU 145 mg/dL High [address] [place] [address] Comment on above: Result Comment: OLGA GEMENT OF PATIENT CARE PER NURSING PROTOCOL Performed By: #### L 501.080 ####[facility] [address] [place], [address] FINGERSTICK GLU 268 mg/dL High 74-106 [facility] Comment on above: Result Comment: OLGA GEMENT OF PATIENT CARE PER NURSING PROTOCOL Performed By: #### L 501.080 ####[facility] [address] [place], [address] FINGERSTICK GLU 293 mg/dL High 74-106 [facility] Comment on above: Result Comment: OLGA GEMENT OF PATIENT CARE PER NURSING PROTOCOL Performed By: #### L 501.080 ####[facility] [address] [place], [address] FINGERSTICK GLU 255 mg/dL High 74-106 [facility] Comment on above: Result Comment: OLGA GEMENT OF PATIENT CARE PER NURSING PROTOCOL Performed By: #### L 501.080 ####[facility] [address] [place], [address] Basic Metabolic Profile (BMP )on 08-08-2024 BUN/CRE 24.6 RATIO High 10-20 [facility] Comment on above: Performed By: #### L 500.2500, L100.0100 ####[facility] [address] [place], [address] CA,Total 9.5 mg/dL Normal 8.5-10.1 [facility] Comment on above: Performed By: #### L 500.2500, L100.0100 ####[facility] [address] [place], [address] Chloride [Moles/Vol] 106 mmol/L Normal 98-107 [facility] Comment on above: Performed By: #### L 500.2500, L100.0100 ####[facility] [address] [place], [address] CO2 [Moles/Vol] 23.0 mmol/L Normal 21.0-32.0 [facility] Comment on above: Performed By: #### L 500.2500, L100.0100 ####[facility] [address] [place], [address] Creatinine [Mass/Vol] 0.73 mg/dL Normal 0.55-1.02 [facility] Comment on above: Result Comment: The validity of the calculated GFR GFRAA in patients over70 years has not been determined. Clinical correlation isessential. Performed By: #### L 500.2500, L100.0100 ####[facility] [address] [place], [address] ECRCL 49.55 ml/min Normal [facility] Comment on above: Performed By: #### L 500.2500, L100.0100 ####[facility] [address] [place], [address] EST GFR - AA 98 mL/min Normal >60 [facility] Comment on above: Result Comment: Afri can Liberian GFR Calc Performed By: #### L 500.2500, L100.0100 ####[facility] [address] [place], [address] GAP 5 Normal 5-15 [facility] Comment on above: Performed By: #### L 500.2500, L100.0100 ####[facility] [address] [place], [address] GFR/1.73 sq M.predicted among non-blacks MDRD (S/P/Bld) [Vol rate/Area] 81 mL/min/{1.73_m2} Normal >60 [facility] Comment on above: Result Comment: Non- GFR Calc Performed By: #### L 500.2500, L100.0100 ####[facility] [address] [place], [address] Glucose [Mass/Vol] 250 mg/dL High 74-106 [facility] Comment on above: Result Comment: Gluc ose result greater than or equal to 200 mg/dLsuggests DIABETES MELLITUS per A.D.A. criteria. Performed By: #### L 500.2500, L100.0100 ####[facility] [address] [place], [address] Potassium [Moles/Vol] 4.1 mmol/L Normal 3.5-5.1 [facility] Comment on above: Performed By: #### L 500.2500, L100.0100 ####[facility] [address] [place], [address] Sodium [Moles/Vol] 135 mmol/L Low 136-145 [facility] Comment on above: Performed By: #### L 500.2500, L100.0100 ####[facility] [address] [place], [address] Urea nitrogen [Mass/Vol] 18 mg/dL Normal 7-18 [facility] Comment on above: Performed By: #### L 500.2500, L100.0100 ####[facility] [address] [place], [address] Bedside Glucoseon 08-08-2024 FINGERSTICK GLU 181 mg/dL High 74-106 [facility] Comment on above: Result Comment: OLGA GEMENT OF PATIENT CARE PER NURSING PROTOCOL Performed By: #### L 501.080 ####[facility] [address] [place], [address] FINGERSTICK GLU 227 mg/dL High 74-106 [facility] Comment on above: Result Comment: OLGA GEMENT OF PATIENT CARE PER NURSING PROTOCOL Performed By: #### L 501.080 ####[facility] [address] [place], [address] FINGERSTICK GLU 233 mg/dL High 74-106 [facility] Comment on above: Result Comment: OLGA GEMENT OF PATIENT CARE PER NURSING PROTOCOL Performed By: #### L 501.080 ####[facility] [address] [place], [address] FINGERSTICK GLU 229 mg/dL High 74-106 [facility] Comment on above: Result Comment: OLGA GOMEZ OF PATIENT CARE PER NURSING PROTOCOL Performed By: #### L 501.080 ####[facility] [address] [place], [address] Brain/Head W/WO Contraston 1 10-09-2023 Brain/Head W/WO Contrast Normal [facility] CBC W/Diff, Automatedon 12- Absolute Lymph 1.30 X10 3/uL Normal 0.83-4.51 [facility] Comment on above: Performed By: #### L 500.2500, L100.0100 ####[facility] [address] [place], [address] Absolute Neut 4.8 X10 3/uL Normal 2.0-7.7 [facility] Comment on above: Performed By: #### L 500.2500, L100.0100 ####[facility] [address] [place], [address] Basophils/100 WBC (Bld) 0.6 % Normal 0-1 [facility] Comment on above: Performed By: #### L 500.2500, L100.0100 ####[facility] [address] [place], [address] Eosinophils/100 WBC (Bld) 5.1 % High 0-5 [facility] Comment on above: Performed By: #### L 500.2500, L100.0100 ####[facility] [address] [place], [address] Erythrocyte distribution width (RBC) [Ratio] 13.4 % Normal 11.6-14.6 [facility] Comment on above: Performed By: #### L 500.2500, L100.0100 ####[facility] [address] [place], [address] Hematocrit (Bld) [Volume fraction] 38.3 % Normal 37-47 [facility] Comment on above: Performed By: #### L 500.2500, L100.0100 ####[facility] [address] [place], [address] Hemoglobin (Bld) [Mass/Vol] 12.8 g/dL Normal 12.0-15.0 [facility] Comment on above: Performed By: #### L 500.2500, L100.0100 ####[facility] [address] [place], [address] IG% 0.300 Normal 0.0-0.9 [facility] Comment on above: Result Comment: IG% - Immature Granulocytes (promyelocytes, myelocytes andmetamyelocytes) > 1% indicates that a LEFT SHIFT is Present. Performed By: #### L 500.2500, L100.0100 ####[facility] [address] [place], [address] Lymphocytes/100 WBC (Bld) 18.0 % Low 19-41 [facility] Comment on above: Performed By: #### L 500.2500, L100.0100 ####[facility] [address] [place], [address] MCH (RBC) [Entitic mass] 31.6 pg Normal 27.0-32.0 [facility] Comment on above: Performed By: #### L 500.2500, L100.0100 ####[facility] [address] [place], [address] MCHC (RBC) [Mass/Vol] 33.4 g/dL Normal 32-36 [facility] Comment on above: Performed By: #### L 500.2500, L100.0100 ####[facility] [address] [place], [address] MCV (RBC) [Entitic vol] 94.6 fL Normal 81-99 [facility] Comment on above: Performed By: #### L 500.2500, L100.0100 ####[facility] [address] [place], [address] Monocytes/100 WBC (Bld) 10.1 % High 0-10 [facility] Comment on above: Performed By: #### L 500.2500, L100.0100 ####[facility] [address] [place], [address] Neutrophils/100 WBC (Bld) 65.9 % Normal 47-70 [facility] Comment on above: Performed By: #### L 500.2500, L100.0100 ####[facility] [address] [place], [address] Nucleated RBC (Bld) [#/Vol] 0 10*3/uL Normal 0-5 [facility] Comment on above: Performed By: #### L 500.2500, L100.0100 ####[facility] [address] [place], [address] Platelet mean volume (Bld) [Entitic vol] 9.6 fL Normal 6.2-12.0 [facility] Comment on above: Performed By: #### L 500.2500, L100.0100 ####[facility] [address] [place], [address] Platelets (Bld) [#/Vol] 253 10*3/uL Normal 150-450 [facility] Comment on above: Performed By: #### L 500.2500, L100.0100 ####[facility] [address] [place], [address] RBC (Bld) [#/Vol] 4.05 10*6/uL Low 4.2-5.4 [facility] Comment on above: Performed By: #### L 500.2500, L100.0100 ####[facility] [address] [place], [address] RDW SD 46.2 fl High 35.1-43.9 [facility] Comment on above: Performed By: #### L 500.2500, L100.0100 ####[facility] [address] [place], [address] WBC (Bld) [#/Vol] 7.2 10*3/uL Normal 4.4-11.0 [facility] Comment on above: Performed By: #### L 500.2500, L100.0100 ####[facility] [address] [place], [address] Thyroid Stim Hormone (TSH)on 08-08-2024 TSH 7.090 uIU/mL High 0.358-3.74 0 [facility] Comment on above: Performed By: #### L 503.0105, L501.9520 ####[facility] [address] [place], [address] Urine Cultureon 08-08-2024 URC SAMPLE COLLECTED 1443 Yeast, not Shanna albicans [place] Count 50,000-80,000 Normal [facility] Comment on above: Performed By: #### M 100.2200 ####[facility] [address] [place], [address] Vitamin B12on 08-08-2024 Cobalamin (Vitamin B12) [Mass/Vol] 1104 pg/mL High 211-911 [facility] Comment on above: Performed By: #### L 503.0105, L501.9520 ####[facility] [address] [place], [address] Bedside Glucoseon 08-07-2024 FINGERSTICK GLU 163 mg/dL High 74-106 [facility] Comment on above: Result Comment: OLGA GOMEZ OF PATIENT CARE PER NURSING PROTOCOL Performed By: #### L 501.080 ####[facility] [address] [place], [address] FINGERSTICK GLU 207 mg/dL High 74-106 [facility] Comment on above: Result Comment: OLGA GEMENT OF PATIENT CARE PER NURSING PROTOCOL Performed By: #### L 501.080 ####[facility] [address] [place], [address] FINGERSTICK GLU 248 mg/dL High [facility]106 [facility] Comment on above: Result Comment: OLGA GEMENT OF PATIENT CARE PER NURSING PROTOCOL Performed By: #### L 501.080 ####[facility] [address] [facility] [address] FINGERSTICK GLU 234 mg/dL High [address] [place] [address] Comment on above: Result Comment: OLGA GEMENT OF PATIENT CARE PER NURSING PROTOCOL Performed By: #### L 501.080 ####[facility] [address] [place], [address] Bedside Glucoseon 08-06-2024 FINGERSTICK GLU 281 mg/dL High -[address] [place] [address] Comment on above: Result Comment: OLGA GEMENT OF PATIENT CARE PER NURSING PROTOCOL Performed By: #### L 501.080 ####[facility] [address] [place], [address] FINGERSTICK GLU 204 mg/dL High [address] [place] [address] Comment on above: Result Comment: OLGA GEMENT OF PATIENT CARE PER NURSING PROTOCOL Performed By: #### L 501.080 ####[facility] [address] [place], [address] FINGERSTICK GLU 252 mg/dL High [address] [place] [address] Comment on above: Result Comment: OLGA GEMENT OF PATIENT CARE PER NURSING PROTOCOL Performed By: #### L 501.080 ####[facility] [address] [place], [address] FINGERSTICK GLU 277 mg/dL High [address] [place] [address] Comment on above: Result Comment: OLGA GEMENT OF PATIENT CARE PER NURSING PROTOCOL Performed By: #### L 501.080 ####[facility] [address] [place], [address] Bedside Glucoseon 08-05-2024 FINGERSTICK GLU 255 mg/dL High 74-106 [facility] Comment on above: Result Comment: OLGA GEMENT OF PATIENT CARE PER NURSING PROTOCOL Performed By: #### L 501.080 ####[facility] [address] [place], [address] FINGERSTICK GLU 267 mg/dL High 74-106 [facility] Comment on above: Result Comment: OLGA GEMENT OF PATIENT CARE PER NURSING PROTOCOL Performed By: #### L 501.080 ####[facility] [address] [place], [place], [address] FINGERSTICK GLU 439 mg/dL High -106 [facility] Comment on above: Result Comment: OLGA GEMENT OF PATIENT CARE PER NURSING PROTOCOL Performed By: #### L 501.080 ####[facility] [address] [place], [address] FINGERSTICK GLU 332 mg/dL High -106 [facility] Comment on above: Result Comment: OLGA GEMENT OF PATIENT CARE PER NURSING PROTOCOL Performed By: #### L 501.080 ####[facility] [address] [place], [address] Hemoglobin A1con 08-05-2024 HbA1c (Bld) [Mass fraction] 7.2 % High 3.8-5.6 [facility] Comment on above: Result Comment: Norm al < 5.7 % Prediabetic 5.7 - 6.4 % Diabetic >or= 6.5 % Please note range changes. Performed By: #### L 501.9985 ####[facility] [address] [place], [address] Urinalysis, Completeon 08-05 BACTERIA 1+ /hpf Normal None Seen [facility] Comment on above: Order Comment: Micro scopic field is filled. Other elements may beobscured.CATHETER SPECIMEN Performed By: #### L 400.0001 ####[facility] [address] [place], [address] RBC 0-5 SEEN Normal 0-5 [facility] Comment on above: Order Comment: Micro scopic field is filled. Other elements may beobscured.CATHETER SPECIMEN Performed By: #### L 400.0001 ####[facility] [address] [place], [address] YEAST 2+ /hpf Normal None Seen [facility] Comment on above: Order Comment: Micro scopic field is filled. Other elements may beobscured.CATHETER SPECIMEN Performed By: #### L 400.0001 ####[facility] [address] [place], [address] WBC >100 SEEN Normal 0-5 [facility] Comment on above: Order Comment: Micro scopic field is filled. Other elements may beobscured.CATHETER SPECIMEN Performed By: #### L 400.0001 ####[facility] [address] [place], [address] EPI,SQUAMOUS 0-5 SEEN Normal 5-10 [facility] Comment on above: Order Comment: Micro scopic field is filled. Other elements may beobscured.CATHETER SPECIMEN Performed By: #### L 400.0001 ####[facility] [address] [facility] [address] Mucus Ql (Urine sed) 0 SEEN Normal [facility] Comment on above: Order Comment: Micro scopic field is filled. Other elements may beobscured.CATHETER SPECIMEN Performed By: #### L 400.0001 ####[facility] [address] [place], [address] Bedside Glucoseon 08-04-2024 FINGERSTICK GLU 282 mg/dL High 74-106 [facility] Comment on above: Result Comment: OLGA GOMEZ OF PATIENT CARE PER NURSING PROTOCOL Performed By: #### L 501.080 ####[facility] [address] [place], [address] FINGERSTICK GLU 253 mg/dL High 74-106 [facility] Comment on above: Result Comment: OLGA GEMENT OF PATIENT CARE PER NURSING PROTOCOL Performed By: #### L 501.080 ####[facility] [address] [place], [address] FINGERSTICK GLU 336 mg/dL High 74-106 [facility] Comment on above: Result Comment: OLGA GEMENT OF PATIENT CARE PER NURSING PROTOCOL Performed By: #### L 501.080 ####[facility] [address] [place], [address] FINGERSTICK GLU 220 mg/dL High 74-106 [facility] Comment on above: Result Comment: OLGA GEMENT OF PATIENT CARE PER NURSING PROTOCOL Performed By: #### L 501.080 ####[facility] [address] [place], [address] CBC W/Diff, Automatedon 12-2 -2023 Absolute Lymph 1.68 X10 3/uL Normal 0.83-4.51 [facility] Comment on above: Performed By: #### L 100.0100, L500.4050 ####[facility] [address] [place], [address] Absolute Neut 3.7 X10 3/uL Normal 2.0-7.7 [facility] Comment on above: Performed By: #### L 100.0100, L500.4050 ####[facility] [address] [place], [address] Basophils/100 WBC (Bld) 0.6 % Normal 0-1 [facility] Comment on above: Performed By: #### L 100.0100, L500.4050 ####[facility] [address] [place], [address] Eosinophils/100 WBC (Bld) 4.4 % Normal 0-5 [facility] Comment on above: Performed By: #### L 100.0100, L500.4050 ####[facility] [address] [place], [address] Erythrocyte distribution width (RBC) [Ratio] 13.7 % Normal 11.6-14.6 [facility] Comment on above: Performed By: #### L 100.0100, L500.4050 ####[facility] [address] [place], [address] Hematocrit (Bld) [Volume fraction] 36.5 % Low 37-47 [facility] Comment on above: Performed By: #### L 100.0100, L500.4050 ####[facility] [address] [place], [address] Hemoglobin (Bld) [Mass/Vol] 12.0 g/dL Normal 12.0-15.0 [facility] Comment on above: Performed By: #### L 100.0100, L500.4050 ####[facility] [address] [place], [address] IG% 0.200 Normal 0.0-0.9 [facility] Comment on above: Result Comment: IG% - Immature Granulocytes (promyelocytes, myelocytes andmetamyelocytes) > 1% indicates that a LEFT SHIFT is Present. Performed By: #### L 100.0100, L500.4050 ####[facility] [address] [place], [address] Lymphocytes/100 WBC (Bld) 26.2 % Normal 19-41 [facility] Comment on above: Performed By: #### L 100.0100, L500.4050 ####[facility] [address] [place], [address] MCH (RBC) [Entitic mass] 31.4 pg Normal 27.0-32.0 [facility] Comment on above: Performed By: #### L 100.0100, L500.4050 ####[facility] [address] [place], [address] MCHC (RBC) [Mass/Vol] 32.9 g/dL Normal 32-36 [facility] Comment on above: Performed By: #### L 100.0100, L500.4050 ####[facility] [address] [place], [address] MCV (RBC) [Entitic vol] 95.5 fL Normal 81-99 [facility] Comment on above: Performed By: #### L 100.0100, L500.4050 ####[facility] [address] [place], [address] Monocytes/100 WBC (Bld) 10.7 % High 0-10 [facility] Comment on above: Performed By: #### L 100.0100, L500.4050 ####[facility] [address] [place], [address] Neutrophils/100 WBC (Bld) 57.9 % Normal 47-70 [facility] Comment on above: Performed By: #### L 100.0100, L500.4050 ####[facility] [address] [place], [address] Nucleated RBC (Bld) [#/Vol] 0 10*3/uL Normal 0-5 [facility] Comment on above: Performed By: #### L 100.0100, L500.4050 ####[facility] [address] [place], [address] Platelet mean volume (Bld) [Entitic vol] 9.7 fL Normal 6.2-12.0 [facility] Comment on above: Performed By: #### L 100.0100, L500.4050 ####[facility] [address] [place], [address] Platelets (Bld) [#/Vol] 224 10*3/uL Normal 150-450 [facility] Comment on above: Performed By: #### L 100.0100, L500.4050 ####[facility] [address] [place], [address] RBC (Bld) [#/Vol] 3.82 10*6/uL Low 4.2-5.4 [facility] Comment on above: Performed By: #### L 100.0100, L500.4050 ####[facility] [address] [place], [address] RDW SD 47.9 fl High 35.1-43.9 [facility] Comment on above: Performed By: #### L 100.0100, L500.4050 ####[facility] [address] [place], [address] WBC (Bld) [#/Vol] 6.4 10*3/uL Normal 4.4-11.0 [facility] Comment on above: Performed By: #### L 100.0100, L500.4050 ####[facility] [address] [place], [address] Comprehensive Metabolic [facility] 08-04-2024 Albumin [Mass/Vol] 3.1 g/dL Low 3.2-5.0 [facility] Comment on above: Performed By: #### L 100.0100, L500.4050 ####[facility] [address] [place], [address] Albumin/Globulin [Mass ratio] 0.9 {ratio} Normal 0.9-2.4 [facility] Comment on above: Performed By: #### L 100.0100, L500.4050 ####[facility] [address] [place], [address] ALK P 72 U/L Normal 45-117 [facility] Comment on above: Performed By: #### L 100.0100, L500.4050 ####[facility] [address] [place], [address] ALT [Catalytic activity/Vol] 20 U/L Normal 13-56 [facility] Comment on above: Performed By: #### L 100.0100, L500.4050 ####[facility] [address] [place], [address] AST [Catalytic activity/Vol] 23 U/L Normal 15-37 [facility] Comment on above: Performed By: #### L 100.0100, L500.4050 ####[facility] [address] [place], [address] Bilirubin [Mass/Vol] 0.80 mg/dL Normal 0.20-1.00 [facility] Comment on above: Result Comment: For patients on eltrombopag therapy, use of Dimension [place] TBIL is not recommended. Performed By: #### L 100.0100, L500.4050 ####[facility] [address] [place], [address] BUN/CRE 15.9 RATIO Normal 10-20 [facility] Comment on above: Performed By: #### L 100.0100, L500.4050 ####[facility] [address] [place], [address] CA,Total 8.9 mg/dL Normal 8.5-10.1 [facility] Comment on above: Performed By: #### L 100.0100, L500.4050 ####[facility] [address] [place], [address] Chloride [Moles/Vol] 108 mmol/L High 98-107 [facility] Comment on above: Performed By: #### L 100.0100, L500.4050 ####[facility] [address] [place], [address] CO2 [Moles/Vol] 24.0 mmol/L Normal 21.0-32.0 [facility] Comment on above: Performed By: #### L 100.0100, L500.4050 ####[facility] [address] [place], [address] Creatinine [Mass/Vol] 0.82 mg/dL Normal 0.55-1.02 [facility] Comment on above: Result Comment: The validity of the calculated GFR GFRAA in patients over70 years has not been determined. Clinical correlation isessential. Performed By: #### L 100.0100, L500.4050 ####[facility] [address] [place], [address] ECRCL 49.08 ml/min Normal [facility] Comment on above: Performed By: #### L 100.0100, L500.4050 ####[facility] [address] [place], [address] EST GFR - AA 86 mL/min Normal >60 [facility] Comment on above: Result Comment: Afri can Liberian GFR Calc Performed By: #### L 100.0100, L500.4050 ####[facility] [address] [place], [address] GAP 5 Normal 5-15 [facility] Comment on above: Performed By: #### L 100.0100, L500.4050 ####[facility] [address] [place], [address] GFR/1.73 sq M.predicted among non-blacks MDRD (S/P/Bld) [Vol rate/Area] 71 mL/min/{1.73_m2} Normal >60 [facility] Comment on above: Result Comment: Non- GFR Calc Performed By: #### L 100.0100, L500.4050 ####[facility] [address] [place], [address] Globulin (S) [Mass/Vol] 3.5 g/dL Normal 2.2-4.2 [facility] Comment on above: Performed By: #### L 100.0100, L500.4050 ####[facility] [address] [place], [address] Glucose [Mass/Vol] 233 mg/dL High 74-106 [facility] Comment on above: Result Comment: Gluc ose result greater than or equal to 200 mg/dLsuggests DIABETES MELLITUS per A.D.A. criteria. Performed By: #### L 100.0100, L500.4050 ####[facility] [address] [place], [address] Potassium [Moles/Vol] 5.1 mmol/L Normal 3.5-5.1 [facility] Comment on above: Performed By: #### L 100.0100, L500.4050 ####[facility] [address] [place], [address] Sodium [Moles/Vol] 137 mmol/L Normal 136-145 [facility] Comment on above: Performed By: #### L 100.0100, L500.4050 ####[facility] [address] [place], [address] T PROT 6.6 g/dL Normal 6.4-8.2 [facility] Comment on above: Performed By: #### L 100.0100, L500.4050 ####[facility] [address] [place], [address] Urea nitrogen [Mass/Vol] 13 mg/dL Normal 7-18 [facility] Comment on above: Performed By: #### L 100.0100, L500.4050 ####[facility] [address] [place], [address] ENTERIC PATHOGEN PANEL STOOL on 08-04-2024 EP PANEL Normal [facility] Comment on above: Performed By: #### M 100.637 ####[facility] [address] [place], [address] RESPIRATORY PANEL MOLECULARo n 08-04-2024 RP PANEL Normal [facility] Comment on above: Performed By: #### M 100.638 ####[facility] [address] [place], [address] 12 Lead EKGon 08-03-2024 12 Lead EKG Normal [facility] BNP,B-Type NATRIURETIC PEPTI Genoveva 08-03-2024 Natriuretic peptide B (Bld) [Mass/Vol] 51.8 pg/mL Normal 0-100 [facility] Comment on above: Performed By: #### L 503.6620, L501.5425, L501.2450, L500.4050, L100.0500 ####[facility] [address] [place], [address] Bedside Glucoseon 08-03-2024 FINGERSTICK GLU 242 mg/dL High 74-106 [facility] Comment on above: Result Comment: OLGA GEMENT OF PATIENT CARE PER NURSING PROTOCOL Performed By: #### L 501.080 ####[facility] [address] [place], [address] FINGERSTICK GLU 151 mg/dL High 74-106 [facility] Comment on above: Result Comment: OLGA GEMENT OF PATIENT CARE PER NURSING PROTOCOL Performed By: #### L 501.080 ####[facility] [address] [place], [address] Brain/Head without Contrasto n 08-03-2024 Brain/Head without Contrast Normal [facility] CBC-Complete Blood Cnt No Di ffon 08-03-2024 Erythrocyte distribution width (RBC) [Ratio] 13.6 % Normal 11.6-14.6 [facility] Comment on above: Performed By: #### L 503.6620, L501.5425, L501.2450, L500.4050, L100.0500 ####[facility] [address] [place], [address] Hematocrit (Bld) [Volume fraction] 38.6 % Normal 37-47 [facility] Comment on above: Performed By: #### L 503.6620, L501.5425, L501.2450, L500.4050, L100.0500 ####[facility] [address] [place], [address] Hemoglobin (Bld) [Mass/Vol] 13.1 g/dL Normal 12.0-15.0 [facility] Comment on above: Performed By: #### L 503.6620, L501.5425, L501.2450, L500.4050, L100.0500 ####[facility] [address] [place], [address] MCH (RBC) [Entitic mass] 31.7 pg Normal 27.0-32.0 [facility] Comment on above: Performed By: #### L 503.6620, L501.5425, L501.2450, L500.4050, L100.0500 ####[facility] [address] [place], [address] MCHC (RBC) [Mass/Vol] 33.9 g/dL Normal 32-36 [facility] Comment on above: Performed By: #### L 503.6620, L501.5425, L501.2450, L500.4050, L100.0500 ####[facility] [address] [place], [address] MCV (RBC) [Entitic vol] 93.5 fL Normal 81-99 [facility] Comment on above: Performed By: #### L 503.6620, L501.5425, L501.2450, L500.4050, L100.0500 ####[facility] [address] [place], [address] Platelet mean volume (Bld) [Entitic vol] 9.6 fL Normal 6.2-12.0 [facility] Comment on above: Performed By: #### L 503.6620, L501.5425, L501.2450, L500.4050, L100.0500 ####[facility] [address] [place], [address] Platelets (Bld) [#/Vol] 278 10*3/uL Normal 150-450 [facility] Comment on above: Performed By: #### L 503.6620, L501.5425, L501.2450, L500.4050, L100.0500 ####[facility] [address] [place], [address] RBC (Bld) [#/Vol] 4.13 10*6/uL Low 4.2-5.4 [facility] Comment on above: Performed By: #### L 503.6620, L501.5425, L501.2450, L500.4050, L100.0500 ####[facility] [address] [place], [address] RDW SD 46.5 fl High 35.1-43.9 [facility] Comment on above: Performed By: #### L 503.6620, L501.5425, L501.2450, L500.4050, L100.0500 ####[facility] [address] [place], [address] WBC (Bld) [#/Vol] 9.3 10*3/uL Normal 4.4-11.0 [facility] Comment on above: Performed By: #### L 503.6620, L501.5425, L501.2450, L500.4050, L100.0500 ####[facility] [address] [place], [address] CTA Chest W/WO Contraston CTA Chest W/WO Contrast Normal [facility] Chest 1 View (Portable)on Chest 1 View (Portable) Normal [facility] Comprehensive Metabolic Prof ilon 08-03-2024 Albumin [Mass/Vol] 3.5 g/dL Normal 3.2-5.0 [facility] Comment on above: Order Comment: 1Y Performed By: #### L 503.6620, L501.5425, L501.2450, L500.4050, L100.0500 ####[facility] [address] [place], [address] Albumin/Globulin [Mass ratio] 0.9 {ratio} Normal 0.9-2.4 [facility] Comment on above: Order Comment: 1Y Performed By: #### L 503.6620, L501.5425, L501.2450, L500.4050, L100.0500 ####[facility] [address] [place], [address] ALK P 82 U/L Normal 45-117 [facility] Comment on above: Order Comment: 1Y Performed By: #### L 503.6620, L501.5425, L501.2450, L500.4050, L100.0500 ####[facility] [address] [place], [address] ALT [Catalytic activity/Vol] 22 U/L Normal 13-56 [facility] Comment on above: Order Comment: 1Y Performed By: #### L 503.6620, L501.5425, L501.2450, L500.4050, L100.0500 ####[facility] [address] [place], [address] AST [Catalytic activity/Vol] 21 U/L Normal 15-37 [facility] Comment on above: Order Comment: 1Y Performed By: #### L 503.6620, L501.5425, L501.2450, L500.4050, L100.0500 ####[facility] [address] [place], [address] Bilirubin [Mass/Vol] 0.60 mg/dL Normal 0.20-1.00 [facility] Comment on above: Order Comment: 1Y Result Comment: For patients on eltrombopag therapy, use of Dimension [place] TBIL is not recommended. Performed By: #### L 503.6620, L501.5425, L501.2450, L500.4050, L100.0500 ####[facility] [address] [place], [address] BUN/CRE 12.8 RATIO Normal 10-20 [facility] Comment on above: Order Comment: 1Y Performed By: #### L 503.6620, L501.5425, L501.2450, L500.4050, L100.0500 ####[facility] [address] [place], [address] CA,Total 9.4 mg/dL Normal 8.5-10.1 [facility] Comment on above: Order Comment: 1Y Performed By: #### L 503.6620, L501.5425, L501.2450, L500.4050, L100.0500 ####[facility] [address] [place], [address] Chloride [Moles/Vol] 104 mmol/L Normal 98-107 [facility] Comment on above: Order Comment: 1Y Performed By: #### L 503.6620, L501.5425, L501.2450, L500.4050, L100.0500 ####[facility] [address] [place], [address] CO2 [Moles/Vol] 24.0 mmol/L Normal 21.0-32.0 [facility] Comment on above: Order Comment: 1Y Performed By: #### L 503.6620, L501.5425, L501.2450, L500.4050, L100.0500 ####[facility] [address] [place], [address] Creatinine [Mass/Vol] 1.09 mg/dL High 0.55-1.02 [facility] Comment on above: Order Comment: 1Y Result Comment: The validity of the calculated GFR GFRAA in patients over70 years has not been determined. Clinical correlation isessential. Performed By: #### L 503.6620, L501.5425, L501.2450, L500.4050, L100.0500 ####[facility] [address] [place], [address] ECRCL 37.08 ml/min Normal [facility] Comment on above: Order Comment: 1Y Performed By: #### L 503.6620, L501.5425, L501.2450, L500.4050, L100.0500 ####[facility] [address] [place], [address] EST GFR - AA 62 mL/min Normal >60 [facility] Comment on above: Order Comment: 1Y Result Comment: Afri can Liberian GFR Calc Performed By: #### L 503.6620, L501.5425, L501.2450, L500.4050, L100.0500 ####[facility] [address] [place], [address] GAP 11 Normal 5-15 [facility] Comment on above: Order Comment: 1Y Performed By: #### L 503.6620, L501.5425, L501.2450, L500.4050, L100.0500 ####[facility] [address] [place], [address] GFR/1.73 sq M.predicted among non-blacks MDRD (S/P/Bld) [Vol rate/Area] 51 mL/min/{1.73_m2} Low >60 [facility] Comment on above: Order Comment: 1Y Result Comment: Non- GFR Calc Performed By: #### L 503.6620, L501.5425, L501.2450, L500.4050, L100.0500 ####[facility] [address] [place], [address] Globulin (S) [Mass/Vol] 4.1 g/dL Normal 2.2-4.2 [facility] Comment on above: Order Comment: 1Y Performed By: #### L 503.6620, L501.5425, L501.2450, L500.4050, L100.0500 ####[facility] [address] [place], [address] Glucose [Mass/Vol] 166 mg/dL High 74-106 [facility] Comment on above: Order Comment: 1Y Result Comment: Fast ing Glucose result greater than or equal to 126 mg/dLsuggests DIABETES MELLITUS per A.D.A. criteria. Performed By: #### L 503.6620, L501.5425, L501.2450, L500.4050, L100.0500 ####[facility] [address] [place], [address] Potassium [Moles/Vol] 3.4 mmol/L Low 3.5-5.1 [facility] Comment on above: Order Comment: 1Y Performed By: #### L 503.6620, L501.5425, L501.2450, L500.4050, L100.0500 ####[facility] [address] [place], [address] Sodium [Moles/Vol] 139 mmol/L Normal 136-145 [facility] Comment on above: Order Comment: 1Y Performed By: #### L 503.6620, L501.5425, L501.2450, L500.4050, L100.0500 ####[facility] [address] [place], [address] T PROT 7.6 g/dL Normal 6.4-8.2 [facility] Comment on above: Order Comment: 1Y Performed By: #### L 503.6620, L501.5425, L501.2450, L500.4050, L100.0500 ####[facility] [address] [place], [address] Urea nitrogen [Mass/Vol] 14 mg/dL Normal 7-18 [facility] Comment on above: Order Comment: 1Y Performed By: #### L 503.6620, L501.5425, L501.2450, L500.4050, L100.0500 ####[facility] [address] [place], [address] Emergency Department Summary on 08-03-2024 Emergency Department Summary Normal [facility] H AND P Exam - Hospitaliston 08-03-2024 H&P Exam - Hospitalist Normal [facility] L501.4020on 08-03-2024 TROPONIN-I HS 38 pg/mL Normal 3.0-54.0 [facility] Comment on above: Result Comment: Plea se Note: New Test Units and Gender Specific Reference Ranges. For more information see Policy Stat Procedure [place] High Sensitivity Troponin (TNIH) and attachments. Performed By: #### L 501.4020 ####[facility] [address] [place], [address] L501.5425on 08-03-2024 TROPONIN-I HS 35 pg/mL Normal 3.0-54.0 [facility] Comment on above: Order Comment: 1Y Result Comment: Plea se Note: New Test Units and Gender Specific Reference Ranges. For more information see Policy Stat Procedure [place] High Sensitivity Troponin (TNIH) and attachments. Performed By: #### L 503.6620, L501.5425, L501.2450, L500.4050, L100.0500 ####[facility] [address] [place], [address] Legionella Antigen Urineon 1 10-04-2023 LEGU Normal [facility] Comment on above: Performed By: #### M 300.4500, M300.4600 ####[facility] [address] [place], [address] Lipaseon 08-03-2024 Lipase [Catalytic activity/Vol] 18 U/L Normal 13-75 [facility] Comment on above: Order Comment: 1Y Result Comment: Leticia em note:LIPASE revised reference range effective 22.New Lipase methodology. Expected to produce lower valuesthan the previous assay method.NEW Reference Range: 13 - 75 U/L Performed By: #### L 503.6620, L501.5425, L501.2450, L500.4050, L100.0500 ####[facility] [address] [place], [address] M100.678on 08-03-2024 M100.678 Pending SARS-CoV-2 (COVID 19) Negative INFLUENZA A Negative INFLUENZA B Negative RSV PCR Negative Normal [facility] Comment on above: Performed By: #### M 100.678, L400.0001 ####[facility] [address] [place], [address] Magnesiumon 08-03-2024 Magnesium [Mass/Vol] 1.7 mg/dL Normal 1.6-2.6 [facility] Comment on above: Order Comment: Comme nts: may add to ED labs Performed By: #### L 501.5200, L509.7000 ####[facility] [address] [place], [address] Office Visit Reporton 2023 Office Visit Report Normal [facility] Procalcitoninon 08-03-2024 Procalcitonin 0.06 ng/mL Normal 0.00-0.09 [facility] Comment on above: Result Comment: A pr [...] obtained. Performed By: #### L 501.5200, L509.7000 ####[facility] [address] [place], [address] Strep pneumoniae Antig(UR,CS F)on 08-03-2024 STPAG Normal [facility] Comment on above: Performed By: #### M 300.4500, M300.4600 ####[facility] [address] [place], [address] Urinalysis, Completeon 08-03 BACTERIA 2+ /hpf Normal None Seen [facility] Comment on above: Order Comment: CLEAN CATCH Performed By: #### M 100.678, L400.0001 ####[facility] [address] [place], [address] EPI,SQUAMOUS 5-10 SEEN Normal 5-10 [facility] Comment on above: Order Comment: CLEAN CATCH Performed By: #### M 100.678, L400.0001 ####[facility] [address] [place], [address] Mucus Ql (Urine sed) 2+ /hpf Normal [facility] Comment on above: Order Comment: CLEAN CATCH Performed By: #### M 100.678, L400.0001 ####[facility] [address] [place], [address] RBC 0-5 SEEN Normal 0-5 [facility] Comment on above: Order Comment: CLEAN CATCH Performed By: #### M 100.678, L400.0001 ####[facility] [address] [place], [address] WBC 10-25 SEEN Normal 0-5 [facility] Comment on above: Order Comment: CLEAN CATCH Performed By: #### M 100.678, L400.0001 ####[facility] [address] [place], [address] Culture, Blood (WB)on 2023 CUB Blood cultures x2 fr om two different sites No growth in 5 days. Normal [facility] Comment on above: Performed By: #### M 200.1000 ####[facility] [address] [place], [address] CNOVon 07-15-2024 CNOV Office Visit (INTMWS ) ANA IVORY ([id number]) 1940 F Date Time Provider Department 07/15/24 [...] a 84 year old lady here for [facility] follow up appointment. Ana Ivory is an [...] has upcoming lab work scheduled with her outsole scheduler, Dr. Munguia. She also reports frequent urination but denies symptoms of diabetic ketoacidosis. Ana uses a Ventolin inhaler for bronchiectasis and requests a refill. She reports that she is supposed to use it three times a day, six puffs each time, but is currently out of the medication. 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 Chanel, in August. 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 Dada Rodríguez. Mild cataract in L eye- no need for cataract surgery at this time. Continue to follow up the cataract. 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 At this time, we anticipate that [...] assistance with chest tube to [facility]. Return to [facility] on Sunday11/18/[address] removal . Enlargement of lymph nodes 12/20/2006 Esophagitis, (more content not included)... Normal [facility] Urine Cultureon 07-13-2024 [facility] Yeast, not Shanna a lbicans [place] Count 80,000-100,000 Normal [facility] Comment on above: Performed By: #### M 100.2200 ####[facility] [address] [place], [address] Basic Metabolic Profile (BMP )on 07-12-2024 BUN/CRE 18.8 RATIO Normal 10-20 [facility] Comment on above: Performed By: #### L 100.0100, L500.2500 ####[facility] [address] [place], [address] CA,Total 8.9 mg/dL Normal 8.5-10.1 [facility] Comment on above: Performed By: #### L 100.0100, L500.2500 ####[facility] [address] [place], [address] Chloride [Moles/Vol] 104 mmol/L Normal 98-107 [facility] Comment on above: Performed By: #### L 100.0100, L500.2500 ####[facility] [address] [place], [address] CO2 [Moles/Vol] 24.0 mmol/L Normal 21.0-32.0 [facility] Comment on above: Performed By: #### L 100.0100, L500.2500 ####[facility] [address] [place], [address] Creatinine [Mass/Vol] 0.80 mg/dL Normal 0.55-1.02 [facility] Comment on above: Result Comment: The validity of the calculated GFR GFRAA in patients over70 years has not been determined. Clinical correlation isessential. Performed By: #### L 100.0100, L500.2500 ####[facility] [address] [place], [address] ECRCL 50.89 ml/min Normal [facility] Comment on above: Performed By: #### L 100.0100, L500.2500 ####[facility] [address] [place], [address] EST GFR - AA 88 mL/min Normal >60 [facility] Comment on above: Result Comment: Afri can Liberian GFR Calc Performed By: #### L 100.0100, L500.2500 ####[facility] [address] [place], [address] GAP 8 Normal 5-15 [facility] Comment on above: Performed By: #### L 100.0100, L500.2500 ####[facility] [address] [place], [address] GFR/1.73 sq M.predicted among non-blacks MDRD (S/P/Bld) [Vol rate/Area] 73 mL/min/{1.73_m2} Normal >60 [facility] Comment on above: Result Comment: Non- GFR Calc Performed By: #### L 100.0100, L500.2500 ####[facility] [address] [place], [address] Glucose [Mass/Vol] 290 mg/dL High 74-106 [facility] Comment on above: Result Comment: Gluc ose result greater than or equal to 200 mg/dLsuggests DIABETES MELLITUS per A.D.A. criteria. Performed By: #### L 100.0100, L500.2500 ####[facility] [address] [place], [address] Potassium [Moles/Vol] 3.9 mmol/L Normal 3.5-5.1 [facility] Comment on above: Performed By: #### L 100.0100, L500.2500 ####[facility] [address] [place], [address] Sodium [Moles/Vol] 136 mmol/L Normal 136-145 [facility] Comment on above: Performed By: #### L 100.0100, L500.2500 ####[facility] [address] [place], [address] Urea nitrogen [Mass/Vol] 15 mg/dL Normal 7-18 [facility] Comment on above: Performed By: #### L 100.0100, L500.2500 ####[facility] [address] [place], [address] Bedside Glucoseon 07-12-2024 FINGERSTICK GLU 293 mg/dL High 74-106 [facility] Comment on above: Result Comment: OLGA GOMEZ OF PATIENT CARE PER NURSING PROTOCOL Performed By: #### L 501.080 ####[facility] [address] [place], [address] CBC W/Diff, Automatedon 11- 0-2023 Absolute Lymph 1.64 X10 3/uL Normal 0.83-4.51 [facility] Comment on above: Performed By: #### L 100.0100, L500.2500 ####[facility] [address] [place], [address] Absolute Neut 6.1 X10 3/uL Normal 2.0-7.7 [facility] Comment on above: Performed By: #### L 100.0100, L500.2500 ####[facility] [address] [place], [address] Basophils/100 WBC (Bld) 0.6 % Normal 0-1 [facility] Comment on above: Performed By: #### L 100.0100, L500.2500 ####[facility] [address] [place], [address] Eosinophils/100 WBC (Bld) 2.9 % Normal 0-5 [facility] Comment on above: Performed By: #### L 100.0100, L500.2500 ####[facility] [address] [place], [address] Erythrocyte distribution width (RBC) [Ratio] 13.2 % Normal 11.6-14.6 [facility] Comment on above: Performed By: #### L 100.0100, L500.2500 ####[facility] [address] [place], [address] Hematocrit (Bld) [Volume fraction] 35.3 % Low 37-47 [facility] Comment on above: Performed By: #### L 100.0100, L500.2500 ####[facility] [address] [place], [address] Hemoglobin (Bld) [Mass/Vol] 12.2 g/dL Normal 12.0-15.0 [facility] Comment on above: Performed By: #### L 100.0100, L500.2500 ####[facility] [address] [place], [address] IG% 0.700 Normal 0.0-0.9 [facility] Comment on above: Result Comment: IG% - Immature Granulocytes (promyelocytes, myelocytes andmetamyelocytes) > 1% indicates that a LEFT SHIFT is Present. Performed By: #### L 100.0100, L500.2500 ####[facility] [address] [place], [address] Lymphocytes/100 WBC (Bld) 18.2 % Low 19-41 [facility] Comment on above: Performed By: #### L 100.0100, L500.2500 ####[facility] [address] [place], [address] MCH (RBC) [Entitic mass] 32.4 pg High 27.0-32.0 [facility] Comment on above: Performed By: #### L 100.0100, L500.2500 ####[facility] [address] [place], [address] MCHC (RBC) [Mass/Vol] 34.6 g/dL Normal 32-36 [facility] Comment on above: Performed By: #### L 100.0100, L500.2500 ####[facility] [address] [place], [address] MCV (RBC) [Entitic vol] 93.6 fL Normal 81-99 [facility] Comment on above: Performed By: #### L 100.0100, L500.2500 ####[facility] [address] [place], [address] Monocytes/100 WBC (Bld) 9.7 % Normal 0-10 [facility] Comment on above: Performed By: #### L 100.0100, L500.2500 ####[facility] [address] [place], [address] Neutrophils/100 WBC (Bld) 67.9 % Normal 47-70 [facility] Comment on above: Performed By: #### L 100.0100, L500.2500 ####[facility] [address] [place], [address] Nucleated RBC (Bld) [#/Vol] 0 10*3/uL Normal 0-5 [facility] Comment on above: Performed By: #### L 100.0100, L500.2500 ####[facility] [address] [place], [address] Platelet mean volume (Bld) [Entitic vol] 9.7 fL Normal 6.2-12.0 [facility] Comment on above: Performed By: #### L 100.0100, L500.2500 ####[facility] [address] [place], [address] Platelets (Bld) [#/Vol] 232 10*3/uL Normal 150-450 [facility] Comment on above: Performed By: #### L 100.0100, L500.2500 ####[facility] [address] [place], [address] RBC (Bld) [#/Vol] 3.77 10*6/uL Low 4.2-5.4 [facility] Comment on above: Performed By: #### L 100.0100, L500.2500 ####[facility] [address] [place], [address] RDW SD 45.0 fl High 35.1-43.9 [facility] Comment on above: Performed By: #### L 100.0100, L500.2500 ####[facility] [address] [place], [address] WBC (Bld) [#/Vol] 9.0 10*3/uL Normal 4.4-11.0 [facility] Comment on above: Performed By: #### L 100.0100, L500.2500 ####[facility] [address] [place], [address] Discharge Instructionon 06-15 Discharge Instruction Normal [facility] Basic Metabolic Profile (BMP )on 07-11-2024 BUN/CRE 17.2 RATIO Normal 10-20 [facility] Comment on above: Performed By: #### L 100.0500, L503.6005, L500.2500 ####[facility] [address] [place], [address] CA,Total 9.0 mg/dL Normal 8.5-10.1 [facility] Comment on above: Performed By: #### L 100.0500, L503.6005, L500.2500 ####[facility] [address] [place], [address] Chloride [Moles/Vol] 105 mmol/L Normal 98-107 [facility] Comment on above: Performed By: #### L 100.0500, L503.6005, L500.2500 ####[facility] [address] [place], [address] CO2 [Moles/Vol] 23.0 mmol/L Normal 21.0-32.0 [facility] Comment on above: Performed By: #### L 100.0500, L503.6005, L500.2500 ####[facility] [address], [address] Creatinine [Mass/Vol] 0.99 mg/dL Normal 0.55-1.02 [facility] Comment on above: Result Comment: The validity of the calculated GFR GFRAA in patients over70 years has not been determined. Clinical correlation isessential. Performed By: #### L 100.0500, L503.6005, L500.2500 ####[facility] [address] [place], [address] ECRCL 41.12 ml/min Normal [facility] Comment on above: Performed By: #### L 100.0500, L503.6005, L500.2500 ####[facility] [address] [place], [address] EST GFR - AA 69 mL/min Normal >60 [facility] Comment on above: Result Comment: Afri can Liberian GFR Calc Performed By: #### L 100.0500, L503.6005, L500.2500 ####[facility] [address] [place], [address] GAP 8 Normal 5-15 [facility] Comment on above: Performed By: #### L 100.0500, L503.6005, L500.2500 ####[facility] [address] [place], [address] GFR/1.73 sq M.predicted among non-blacks MDRD (S/P/Bld) [Vol rate/Area] 57 mL/min/{1.73_m2} Low >60 [facility] Comment on above: Result Comment: Non- GFR Calc Performed By: #### L 100.0500, L503.6005, L500.2500 ####[facility] [address] [place], [address] Glucose [Mass/Vol] 228 mg/dL High 74-106 [facility] Comment on above: Result Comment: Gluc ose result greater than or equal to 200 mg/dLsuggests DIABETES MELLITUS per A.D.A. criteria. Performed By: #### L 100.0500, L503.6005, L500.2500 ####[facility] [address] [place], [address] Potassium [Moles/Vol] 4.2 mmol/L Normal 3.5-5.1 [facility] Comment on above: Performed By: #### L 100.0500, L503.6005, L500.2500 ####[facility] [address] [place], [address] Sodium [Moles/Vol] 136 mmol/L Normal 136-145 [facility] Comment on above: Performed By: #### L 100.0500, L503.6005, L500.2500 ####[facility] [address] [place], [address] Urea nitrogen [Mass/Vol] 17 mg/dL Normal 7-18 [facility] Comment on above: Performed By: #### L 100.0500, L503.6005, L500.2500 ####[facility] [address] [place], [address] Bedside Glucoseon 07-11-2024 FINGERSTICK GLU 262 mg/dL High 74-106 [facility] Comment on above: Result Comment: OLGA GEMENT OF PATIENT CARE PER NURSING PROTOCOL Performed By: #### L 501.080 ####[facility] [address] [place], [address] FINGERSTICK GLU 220 mg/dL High 74-106 [facility] Comment on above: Result Comment: OLGA GEMENT OF PATIENT CARE PER NURSING PROTOCOL Performed By: #### L 501.080 ####[facility] [address] [place], [address] FINGERSTICK GLU 351 mg/dL High 74-106 [facility] Comment on above: Result Comment: OLGA GEMENT OF PATIENT CARE PER NURSING PROTOCOL Performed By: #### L 501.080 ####[facility] [address] [place], [address] FINGERSTICK GLU 233 mg/dL High 74-106 [facility] Comment on above: Result Comment: OLGA GOMEZ OF PATIENT CARE PER NURSING PROTOCOL Performed By: #### L 501.080 ####[facility] [address] [place], [address] CBC-Complete Blood Cnt No Di ffon 07-11-2024 Erythrocyte distribution width (RBC) [Ratio] 13.3 % Normal 11.6-14.6 [facility] Comment on above: Performed By: #### L 100.0500, L503.6005, L500.2500 ####[facility] [address] [place], [address] Hematocrit (Bld) [Volume fraction] 34.5 % Low 37-47 [facility] Comment on above: Performed By: #### L 100.0500, L503.6005, L500.2500 ####[facility] [address] [place], [address] Hemoglobin (Bld) [Mass/Vol] 11.7 g/dL Low 12.0-15.0 [facility] Comment on above: Performed By: #### L 100.0500, L503.6005, L500.2500 ####[facility] [address] [place], [address] MCH (RBC) [Entitic mass] 32.0 pg Normal 27.0-32.0 [facility] Comment on above: Performed By: #### L 100.0500, L503.6005, L500.2500 ####[facility] [address] [place], [address] MCHC (RBC) [Mass/Vol] 33.9 g/dL Normal 32-36 [facility] Comment on above: Performed By: #### L 100.0500, L503.6005, L500.2500 ####[facility] [address] [place], [address] MCV (RBC) [Entitic vol] 94.3 fL Normal 81-99 [facility] Comment on above: Performed By: #### L 100.0500, L503.6005, L500.2500 ####[facility] [address] [place], [address] Platelet mean volume (Bld) [Entitic vol] 9.8 fL Normal 6.2-12.0 [facility] Comment on above: Performed By: #### L 100.0500, L503.6005, L500.2500 ####[facility] [address] [place], [address] Platelets (Bld) [#/Vol] 260 10*3/uL Normal 150-450 [facility] Comment on above: Performed By: #### L 100.0500, L503.6005, L500.2500 ####[facility] [address] [place], [address] RBC (Bld) [#/Vol] 3.66 10*6/uL Low 4.2-5.4 [facility] Comment on above: Performed By: #### L 100.0500, L503.6005, L500.2500 ####[facility] [address] [place], [address] RDW SD 46.2 fl High 35.1-43.9 [facility] Comment on above: Performed By: #### L 100.0500, L503.6005, L500.2500 ####[facility] [address] [place], [address] WBC (Bld) [#/Vol] 11.9 10*3/uL High 4.4-11.0 [facility] Comment on above: Performed By: #### L 100.0500, L503.6005, L500.2500 ####[facility] [address] [place], [address] Echo Complete W/ Contraston 07-11-2024 Echo Complete W/ Contrast Normal [facility] Lactic Acidon 07-11-2024 Lactate [Moles/Vol] 1.6 mmol/L Normal 0.4-1.9 [facility] Comment on above: Order Comment: Y Performed By: #### L 100.0500, L503.6005, L500.2500 ####[facility] [address] [place], [address] Lactate [Moles/Vol] 2.5 mmol/L Invalid Interpretation Code 0.4-1.9 [facility] Comment on above: Result Comment: Crit ical Result(s) Called at: 01:32:32 07/11/2024 by: NoahBurns. marianela Welch RN PCU. Results read back by same. Performed By: #### L 503.6005 ####[facility] [address] [place], [place], [address] Abdomen/Pelvis without Conto n 07-10-2024 Abdomen/Pelvis without Cont Normal [facility] BNP,B-Type NATRIURETIC PEPTI Genoveva 07-10-2024 Natriuretic peptide B (Bld) [Mass/Vol] 36.3 pg/mL Normal 0-100 [facility] Comment on above: Performed By: #### L 500.4050, L503.6005, L100.0100, L501.2450, L501.5425, L503.6620 ####[facility] [address] [place], [address] Bedside Glucoseon 07-10-2024 FINGERSTICK GLU 115 mg/dL High 74-106 [facility] Comment on above: Result Comment: OLGA GOMEZ OF PATIENT CARE PER NURSING PROTOCOL Performed By: #### L 501.080 ####[facility] [address] [place], [address] Brain/Head without Contrasto n 07-10-2024 Brain/Head without Contrast Normal [facility] CBC W/Diff, Automatedon 11- Absolute Lymph 1.64 X10 3/uL Normal 0.83-4.51 [facility] Comment on above: Performed By: #### L 500.4050, L503.6005, L100.0100, L501.2450, L501.5425, L503.6620 ####[facility] [address] [place], [address] Absolute Neut 12.4 X10 3/uL High 2.0-7.7 [facility] Comment on above: Performed By: #### L 500.4050, L503.6005, L100.0100, L501.2450, L501.5425, L503.6620 ####[facility] [address] [place], [address] Basophils/100 WBC (Bld) 0.5 % Normal 0-1 [facility] Comment on above: Performed By: #### L 500.4050, L503.6005, L100.0100, L501.2450, L501.5425, L503.6620 ####[facility] [address] [place], [address] Eosinophils/100 WBC (Bld) 1.1 % Normal 0-5 [facility] Comment on above: Performed By: #### L 500.4050, L503.6005, L100.0100, L501.2450, L501.5425, L503.6620 ####[facility] [address] [place], [address] Erythrocyte distribution width (RBC) [Ratio] 13.3 % Normal 11.6-14.6 [facility] Comment on above: Performed By: #### L 500.4050, L503.6005, L100.0100, L501.2450, L501.5425, L503.6620 ####[facility] [address] [place], [address] Hematocrit (Bld) [Volume fraction] 41.0 % Normal 37-47 [facility] Comment on above: Performed By: #### L 500.4050, L503.6005, L100.0100, L501.2450, L501.5425, L503.6620 ####[facility] [address] [place], [address] Hemoglobin (Bld) [Mass/Vol] 14.1 g/dL Normal 12.0-15.0 [facility] Comment on above: Performed By: #### L 500.4050, L503.6005, L100.0100, L501.2450, L501.5425, L503.6620 ####[facility] [address] [place], [address] IG% 0.400 Normal 0.0-0.9 [facility] Comment on above: Result Comment: IG% - Immature Granulocytes (promyelocytes, myelocytes andmetamyelocytes) > 1% indicates that a LEFT SHIFT is Present. Performed By: #### L 500.4050, L503.6005, L100.0100, L501.2450, L501.5425, L503.6620 ####[facility] [address] [place], [address] Lymphocytes/100 WBC (Bld) 10.5 % Low 19-41 [facility] Comment on above: Performed By: #### L 500.4050, L503.6005, L100.0100, L501.2450, L501.5425, L503.6620 ####[facility] [address] [place], [address] MCH (RBC) [Entitic mass] 32.0 pg Normal 27.0-32.0 [facility] Comment on above: Performed By: #### L 500.4050, L503.6005, L100.0100, L501.2450, L501.5425, L503.6620 ####[facility] [address] [place], [address] MCHC (RBC) [Mass/Vol] 34.4 g/dL Normal 32-36 [facility] Comment on above: Performed By: #### L 500.4050, L503.6005, L100.0100, L501.2450, L501.5425, L503.6620 ####[facility] [address] [place], [address] MCV (RBC) [Entitic vol] 93.2 fL Normal 81-99 [facility] Comment on above: Performed By: #### L 500.4050, L503.6005, L100.0100, L501.2450, L501.5425, L503.6620 ####[facility] [address] [place], [address] Monocytes/100 WBC (Bld) 8.1 % Normal 0-10 [facility] Comment on above: Performed By: #### L 500.4050, L503.6005, L100.0100, L501.2450, L501.5425, L503.6620 ####[facility] [address] [place], [address] Neutrophils/100 WBC (Bld) 79.4 % High 47-70 [facility] Comment on above: Performed By: #### L 500.4050, L503.6005, L100.0100, L501.2450, L501.5425, L503.6620 ####[facility] [address] [place], [address] Nucleated RBC (Bld) [#/Vol] 0 10*3/uL Normal 0-5 [facility] Comment on above: Performed By: #### L 500.4050, L503.6005, L100.0100, L501.2450, L501.5425, L503.6620 ####[facility] [address] [place], [address] Platelet mean volume (Bld) [Entitic vol] 9.6 fL Normal 6.2-12.0 [facility] Comment on above: Performed By: #### L 500.4050, L503.6005, L100.0100, L501.2450, L501.5425, L503.6620 ####[facility] [address] [place], [address] Platelets (Bld) [#/Vol] 311 10*3/uL Normal 150-450 [facility] Comment on above: Performed By: #### L 500.4050, L503.6005, L100.0100, L501.2450, L501.5425, L503.6620 ####[facility] [address] [place], [address] RBC (Bld) [#/Vol] 4.40 10*6/uL Normal 4.2-5.4 [facility] Comment on above: Performed By: #### L 500.4050, L503.6005, L100.0100, L501.2450, L501.5425, L503.6620 ####[facility] [address] [place], [address] RDW SD 45.1 fl High 35.1-43.9 [facility] Comment on above: Performed By: #### L 500.4050, L503.6005, L100.0100, L501.2450, L501.5425, L503.6620 ####[facility] [address] [place], [address] WBC (Bld) [#/Vol] 15.6 10*3/uL High 4.4-11.0 [facility] Comment on above: Performed By: #### L 500.4050, L503.6005, L100.0100, L501.2450, L501.5425, L503.6620 ####[facility] [address] [place], [address] Chest 1 View (Portable)on Chest 1 View (Portable) Normal [facility] Comprehensive Metabolic Prof ilon 07-10-2024 Albumin [Mass/Vol] 3.8 g/dL Normal 3.2-5.0 [facility] Comment on above: Order Comment: 1Y Performed By: #### L 500.4050, L503.6005, L100.0100, L501.2450, L501.5425, L503.6620 ####[facility] [address] [place], [address] Albumin/Globulin [Mass ratio] 1.0 {ratio} Normal 0.9-2.4 [facility] Comment on above: Order Comment: 1Y Performed By: #### L 500.4050, L503.6005, L100.0100, L501.2450, L501.5425, L503.6620 ####[facility] [address] [place], [address] ALK P 101 U/L Normal 45-117 [facility] Comment on above: Order Comment: 1Y Performed By: #### L 500.4050, L503.6005, L100.0100, L501.2450, L501.5425, L503.6620 ####[facility] [address] [place], [address] ALT [Catalytic activity/Vol] 21 U/L Normal 13-56 [facility] Comment on above: Order Comment: 1Y Performed By: #### L 500.4050, L503.6005, L100.0100, L501.2450, L501.5425, L503.6620 ####[facility] [address] [place], [address] AST [Catalytic activity/Vol] 16 U/L Normal 15-37 [facility] Comment on above: Order Comment: 1Y Performed By: #### L 500.4050, L503.6005, L100.0100, L501.2450, L501.5425, L503.6620 ####[facility] [address] [place], [address] Bilirubin [Mass/Vol] 0.30 mg/dL Normal 0.20-1.00 [facility] Comment on above: Order Comment: 1Y Result Comment: For patients on eltrombopag therapy, use of Dimension [place] TBIL is not recommended. Performed By: #### L 500.4050, L503.6005, L100.0100, L501.2450, L501.5425, L503.6620 ####[facility] [address] [place], [address] BUN/CRE 17.6 RATIO Normal 10-20 [facility] Comment on above: Order Comment: 1Y Performed By: #### L 500.4050, L503.6005, L100.0100, L501.2450, L501.5425, L503.6620 ####[facility] [address] [place], [address] CA,Total 10.0 mg/dL Normal 8.5-10.1 [facility] Comment on above: Order Comment: 1Y Performed By: #### L 500.4050, L503.6005, L100.0100, L501.2450, L501.5425, L503.6620 ####[facility] [address] [place], [address] Chloride [Moles/Vol] 104 mmol/L Normal 98-107 [facility] Comment on above: Order Comment: 1Y Performed By: #### L 500.4050, L503.6005, L100.0100, L501.2450, L501.5425, L503.6620 ####[facility] [address] [place], [address] CO2 [Moles/Vol] 29.0 mmol/L Normal 21.0-32.0 [facility] Comment on above: Order Comment: 1Y Performed By: #### L 500.4050, L503.6005, L100.0100, L501.2450, L501.5425, L503.6620 ####[facility] [address] [place], [address] Creatinine [Mass/Vol] 0.96 mg/dL Normal 0.55-1.02 [facility] Comment on above: Order Comment: 1Y Result Comment: The validity of the calculated GFR GFRAA in patients over70 years has not been determined. Clinical correlation isessential. Performed By: #### L 500.4050, L503.6005, L100.0100, L501.2450, L501.5425, L503.6620 ####[facility] [address] [place], [address] ECRCL 42.72 ml/min Normal [facility] Comment on above: Order Comment: 1Y Performed By: #### L 500.4050, L503.6005, L100.0100, L501.2450, L501.5425, L503.6620 ####[facility] [address] [place], [address] EST GFR - AA 71 mL/min Normal >60 [facility] Comment on above: Order Comment: 1Y Result Comment: Afri can Liberian GFR Calc Performed By: #### L 500.4050, L503.6005, L100.0100, L501.2450, L501.5425, L503.6620 ####[facility] [address] [place], [address] GAP 7 Normal 5-15 [facility] Comment on above: Order Comment: 1Y Performed By: #### L 500.4050, L503.6005, L100.0100, L501.2450, L501.5425, L503.6620 ####[facility] [address], [address] GFR/1.73 sq M.predicted among non-blacks MDRD (S/P/Bld) [Vol rate/Area] 59 mL/min/{1.73_m2} Low >60 [facility] Comment on above: Order Comment: 1Y Result Comment: Non- GFR Calc Performed By: #### L 500.4050, L503.6005, L100.0100, L501.2450, L501.5425, L503.6620 ####[facility] [address], [address] Globulin (S) [Mass/Vol] 3.9 g/dL Normal 2.2-4.2 [facility] Comment on above: Order Comment: 1Y Performed By: #### L 500.4050, L503.6005, L100.0100, L501.2450, L501.5425, L503.6620 ####[facility] [address], [address] Glucose [Mass/Vol] 136 mg/dL High 74-106 [facility] Comment on above: Order Comment: 1Y Result Comment: Fast ing Glucose result greater than or equal to 126 mg/dLsuggests DIABETES MELLITUS per A.D.A. criteria. Performed By: #### L 500.4050, L503.6005, L100.0100, L501.2450, L501.5425, L503.6620 ####[facility] [address] [place], [address] Potassium [Moles/Vol] 4.1 mmol/L Normal 3.5-5.1 [facility] Comment on above: Order Comment: 1Y Performed By: #### L 500.4050, L503.6005, L100.0100, L501.2450, L501.5425, L503.6620 ####[facility] [address] [place], [address] Sodium [Moles/Vol] 140 mmol/L Normal 136-145 [facility] Comment on above: Order Comment: 1Y Performed By: #### L 500.4050, L503.6005, L100.0100, L501.2450, L501.5425, L503.6620 ####[facility] [address] [place], [address] T PROT 7.7 g/dL Normal 6.4-8.2 [facility] Comment on above: Order Comment: 1Y Performed By: #### L 500.4050, L503.6005, L100.0100, L501.2450, L501.5425, L503.6620 ####[facility] [address] [place], [address] Urea nitrogen [Mass/Vol] 17 mg/dL Normal 7-18 [facility] Comment on above: Order Comment: 1Y Performed By: #### L 500.4050, L503.6005, L100.0100, L501.2450, L501.5425, L503.6620 ####[facility] [address] [place], [address] Emergency Department Summary on 07-10-2024 Emergency Department Summary Normal [facility] H AND P Exam - Hospitaliston 07-10-2024 H&P Exam - Hospitalist Normal [facility] L501.4020on 07-10-2024 TROPONIN-I HS 6 pg/mL Normal 3.0-54.0 [facility] Comment on above: Result Comment: Leticia em Note: New Test Units and Gender Specific Reference Ranges. For more information see Policy Stat Procedure [place] High Sensitivity Troponin (TNIH) and attachments. Performed By: #### L 501.4020 ####[facility] [address] [place], [address] L501.5425on 07-10-2024 TROPONIN-I HS 6 pg/mL Normal 3.0-54.0 [facility] Comment on above: Order Comment: 1Y Result Comment: Leticia em Note: New Test Units and Gender Specific Reference Ranges. For more information see Policy Stat Procedure [place] High Sensitivity Troponin (TNIH) and attachments. Performed By: #### L 500.4050, L503.6005, L100.0100, L501.2450, L501.5425, L503.6620 ####[facility] [address] [place], [address] Lactic Acidon 07-10-2024 Lactate [Moles/Vol] 2.4 mmol/L Invalid Interpretation Code 0.4-1.9 [facility] Comment on above: Order Comment: Y Result Comment: Crit ical Result(s) Called at: 21:29:52 07/10/2024 by: YAW. Results read back by Wolf Stoner Performed By: #### L 503.6005 ####[facility] [address] [place], [address] Lactate [Moles/Vol] 2.5 mmol/L Invalid Interpretation Code 0.4-1.9 [facility] Comment on above: Order Comment: Y Result Comment: Crit ical Result(s) Called at: 18:11:29 07/10/2024 by: JO ANNJustSpottedWAZUCENA. Results read back by Tierra Dozier Performed By: #### L 500.4050, L503.6005, L100.0100, L501.2450, L501.5425, L503.6620 ####[facility] [address] [place], [address] Lipaseon 07-10-2024 Lipase [Catalytic activity/Vol] 14 U/L Normal 13-75 [facility] Comment on above: Order Comment: 1Y Result Comment: Leticia em note:LIPASE revised reference range effective 22.New Lipase methodology. Expected to produce lower valuesthan the previous assay method.NEW Reference Range: 13 - 75 U/L Performed By: #### L 500.4050, L503.6005, L100.0100, L501.2450, L501.5425, L503.6620 ####[facility] [address] [place], [address] M100.678on 07-10-2024 M100.678 Pending SARS-CoV-2 (COVID 19) Negative INFLUENZA A Negative INFLUENZA B Negative RSV PCR Negative Normal [facility] Comment on above: Performed By: #### M 100.678 ####[facility] [address] [place], [address] Urinalysis, Completeon 07-10 EPI,SQUAMOUS 0-5 SEEN Normal 5-10 [facility] Comment on above: Order Comment: CLEAN CATCH Performed By: #### L 400.0001 ####[facility] [address] [place], [address] RBC 0-5 SEEN Normal 0-5 [facility] Comment on above: Order Comment: CLEAN CATCH Performed By: #### L 400.0001 ####[facility] [address] [place], [address] WBC 5-10 SEEN Normal 0-5 [facility] Comment on above: Order Comment: CLEAN CATCH Performed By: #### L 400.0001 ####[facility] [address] [place], [address] YEAST 1+ /hpf Normal None Seen [facility] Comment on above: Order Comment: CLEAN CATCH Performed By: #### L 400.0001 ####[facility] [address] [place], [address] BACTERIA 0 SEEN Normal None Seen [facility] Comment on above: Order Comment: CLEAN CATCH Performed By: #### L 400.0001 ####[facility] [address] [place], [address] Mucus Ql (Urine sed) 0 SEEN Normal [facility] Comment on above: Order Comment: CLEAN CATCH Performed By: #### L 400.0001 ####[facility] [address] [place], [address] Endocrinology Visit Reporton 07-01-2024 Endocrinology Visit Report Normal [facility] Venous Duplex US - Rick Extre mon 06-23-2024 Venous Duplex US - Rick Extrem Normal [facility] Office Visit Reporton 2023 Office Visit Report Normal [facility] Bedside Glucoseon 05-29-2024 FINGERSTICK GLU 194 mg/dL High 74-106 [facility] Comment on above: Result Comment: OLGA GOMEZ OF PATIENT CARE PER NURSING PROTOCOL Performed By: #### L 501.080 ####[facility] [address] [place], [address] Discharge Instructionon 05-13 Discharge Instruction Normal [facility] MR/POSTOP.ANEon 05-29-2024 MR/POSTOP.ANE [facility] MR/[id number] 05-29-2024 MR/POSTOPAN2 [facility] Operative Reporton Operative Report Normal [facility] CNOVon 05-27-2024 CNOV Office Visit (INTMWS ) ANA IVORY ([id number]) 1940 F Date Time Provider Department 05/27/24 10:00 AM ALICIA BLOUNT INTMWS During your visit today, we recorded the following information about you: Temperature Pulse Respiration Blood pressure 97.6 degrees 83/minute 16/minute 128/68 Weight 74.2 kg Alicia Blount MD 07/04/2024 5:59 PM Signed This note was created using [employer]. Subjective Ana Ivory is a 84 year [...] esophagus C. difficile diarrhea 10/18/2011 Cataract 04/17/2013 [facility], Dr. Dada Rodríguez. Mild cataract in L eye- no need for cataract surgery at this time. Continue to follow up the cataract. 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 At this time, we anticipate that [...] bed, co (more content not included)... Normal [facility] Neurology Visit Reporton Neurology Visit Report Normal [facility] Office Visit Reporton 2023 Office Visit Report Normal [facility] 12 Lead EKGon 05-01-2024 12 Lead EKG Normal [facility] Abdomen/Pelvis W IV Cont ONL Yon 05-01-2024 Abdomen/Pelvis W IV Cont ONLY Normal [facility] CBC W/Diff, Automatedon 04-13 Absolute Lymph 1.91 X10 3/uL Normal 0.83-4.51 [facility] Comment on above: Performed By: #### L 100.0100, L500.4050, L501.2450, L501.4020 ####[facility] [address] [place], [address] Absolute Neut 5.8 X10 3/uL Normal 2.0-7.7 [facility] Comment on above: Performed By: #### L 100.0100, L500.4050, L501.2450, L501.4020 ####[facility] [address] [place], [address] Basophils/100 WBC (Bld) 0.6 % Normal 0-1 [facility] Comment on above: Performed By: #### L 100.0100, L500.4050, L501.2450, L501.4020 ####[facility] [address] [place], [address] Eosinophils/100 WBC (Bld) 1.2 % Normal 0-5 [facility] Comment on above: Performed By: #### L 100.0100, L500.4050, L501.2450, L501.4020 ####[facility] [address] [place], [address] Erythrocyte distribution width (RBC) [Ratio] 13.2 % Normal 11.6-14.6 [facility] Comment on above: Performed By: #### L 100.0100, L500.4050, L501.2450, L501.4020 ####[facility] [address] [place], [address] Hematocrit (Bld) [Volume fraction] 43.2 % Normal 37-47 [facility] Comment on above: Performed By: #### L 100.0100, L500.4050, L501.2450, L501.4020 ####[facility] [address] [place], [address] Hemoglobin (Bld) [Mass/Vol] 14.4 g/dL Normal 12.0-15.0 [facility] Comment on above: Performed By: #### L 100.0100, L500.4050, L501.2450, L501.4020 ####[facility] [address] [place], [address] IG% 0.300 Normal 0.0-0.9 [facility] Comment on above: Result Comment: IG% - Immature Granulocytes (promyelocytes, myelocytes andmetamyelocytes) > 1% indicates that a LEFT SHIFT is Present. Performed By: #### L 100.0100, L500.4050, L501.2450, L501.4020 ####[facility] [address] [place], [address] Lymphocytes/100 WBC (Bld) 21.5 % Normal 19-41 [facility] Comment on above: Performed By: #### L 100.0100, L500.4050, L501.2450, L501.4020 ####[facility] [address] [place], [address] MCH (RBC) [Entitic mass] 31.4 pg Normal 27.0-32.0 [facility] Comment on above: Performed By: #### L 100.0100, L500.4050, L501.2450, L501.4020 ####[facility] [address] [place], [address] MCHC (RBC) [Mass/Vol] 33.3 g/dL Normal 32-36 [facility] Comment on above: Performed By: #### L 100.0100, L500.4050, L501.2450, L501.4020 ####[facility] [address] [place], [address] MCV (RBC) [Entitic vol] 94.3 fL Normal 81-99 [facility] Comment on above: Performed By: #### L 100.0100, L500.4050, L501.2450, L501.4020 ####[facility] [address] [place], [address] Monocytes/100 WBC (Bld) 10.9 % High 0-10 [facility] Comment on above: Performed By: #### L 100.0100, L500.4050, L501.2450, L501.4020 ####[facility] [address] [place], [address] Neutrophils/100 WBC (Bld) 65.5 % Normal 47-70 [facility] Comment on above: Performed By: #### L 100.0100, L500.4050, L501.2450, L501.4020 ####[facility] [address] [place], [address] Nucleated RBC (Bld) [#/Vol] 0 10*3/uL Normal 0-5 [facility] Comment on above: Performed By: #### L 100.0100, L500.4050, L501.2450, L501.4020 ####[facility] [address] [place], [address] Platelet mean volume (Bld) [Entitic vol] 9.9 fL Normal 6.2-12.0 [facility] Comment on above: Performed By: #### L 100.0100, L500.4050, L501.2450, L501.4020 ####[facility] [facility] [address] [place], [address] Platelets (Bld) [#/Vol] 284 10*3/uL Normal 150-450 [facility] Comment on above: Performed By: #### L 100.0100, L500.4050, L501.2450, L501.4020 ####[facility] [address] [place], [address] RBC (Bld) [#/Vol] 4.58 10*6/uL Normal 4.2-5.4 [facility] Comment on above: Performed By: #### L 100.0100, L500.4050, L501.2450, L501.4020 ####[facility] [address] [place], [address] RDW SD 45.0 fl High 35.1-43.9 [facility] Comment on above: Performed By: #### L 100.0100, L500.4050, L501.2450, L501.4020 ####[facility] [address] [place], [address] WBC (Bld) [#/Vol] 8.9 10*3/uL Normal 4.4-11.0 [facility] Comment on above: Performed By: #### L 100.0100, L500.4050, L501.2450, L501.4020 ####[facility] [address] [place], [address] Chest 1 View (Portable)on Chest 1 View (Portable) Normal [facility] Comprehensive Metabolic Prof ilon 05-01-2024 Albumin [Mass/Vol] 3.6 g/dL Normal 3.2-5.0 [facility] Comment on above: Order Comment: 'TROP ' Serial specimen #1, #2 or #3: 1 Performed By: #### L 100.0100, L500.4050, L501.2450, L501.4020 ####[facility] [address] [place], [address] Albumin/Globulin [Mass ratio] 0.9 {ratio} Normal 0.9-2.4 [facility] Comment on above: Order Comment: 'TROP ' Serial specimen #1, #2 or #3: 1 Performed By: #### L 100.0100, L500.4050, L501.2450, L501.4020 ####[facility] [address] [place], [address] ALK P 84 U/L Normal 45-117 [facility] Comment on above: Order Comment: 'TROP ' Serial specimen #1, #2 or #3: 1 Performed By: #### L 100.0100, L500.4050, L501.2450, L501.4020 ####[facility] [address] [place], [address] ALT [Catalytic activity/Vol] 23 U/L Normal 13-56 [facility] Comment on above: Order Comment: 'TROP ' Serial specimen #1, #2 or #3: 1 Performed By: #### L 100.0100, L500.4050, L501.2450, L501.4020 ####[facility] [address] [place], [address] AST [Catalytic activity/Vol] 17 U/L Normal 15-37 [facility] Comment on above: Order Comment: 'TROP ' Serial specimen #1, #2 or #3: 1 Performed By: #### L 100.0100, L500.4050, L501.2450, L501.4020 ####[facility] [address] [place], [address] Bilirubin [Mass/Vol] 0.40 mg/dL Normal 0.20-1.00 [facility] Comment on above: Order Comment: 'TROP ' Serial specimen #1, #2 or #3: 1 Result Comment: For patients on eltrombopag therapy, use of Dimension [place] TBIL is not recommended. Performed By: #### L 100.0100, L500.4050, L501.2450, L501.4020 ####[facility] [address] [place], [address] BUN/CRE 14.6 RATIO Normal 10-20 [facility] Comment on above: Order Comment: 'TROP ' Serial specimen #1, #2 or #3: 1 Performed By: #### L 100.0100, L500.4050, L501.2450, L501.4020 ####[facility] [address] [place], [address] CA,Total 9.4 mg/dL Normal 8.5-10.1 [facility] Comment on above: Order Comment: 'TROP ' Serial specimen #1, #2 or #3: 1 Performed By: #### L 100.0100, L500.4050, L501.2450, L501.4020 ####[facility] [address] [place], [address] Chloride [Moles/Vol] 108 mmol/L High 98-107 [facility] Comment on above: Order Comment: 'TROP ' Serial specimen #1, #2 or #3: 1 Performed By: #### L 100.0100, L500.4050, L501.2450, L501.4020 ####[facility] [address] [place], [address] CO2 [Moles/Vol] 23.0 mmol/L Normal 21.0-32.0 [facility] Comment on above: Order Comment: 'TROP ' Serial specimen #1, #2 or #3: 1 Performed By: #### L 100.0100, L500.4050, L501.2450, L501.4020 ####[facility] [address] [place], [address] Creatinine [Mass/Vol] 0.75 mg/dL Normal 0.55-1.02 [facility] Comment on above: Order Comment: 'TROP ' Serial specimen #1, #2 or #3: 1 Result Comment: The validity of the calculated GFR GFRAA in patients over70 years has not been determined. Clinical correlation isessential. Performed By: #### L 100.0100, L500.4050, L501.2450, L501.4020 ####[facility] [address] [place], [address] ECRCL 51.06 ml/min Normal [facility] Comment on above: Order Comment: 'TROP ' Serial specimen #1, #2 or #3: 1 Performed By: #### L 100.0100, L500.4050, L501.2450, L501.4020 ####[facility] [address] [place], [address] EST GFR - AA 95 mL/min Normal >60 [facility] Comment on above: Order Comment: 'TROP ' Serial specimen #1, #2 or #3: 1 Result Comment: Afri can Liberian GFR Calc Performed By: #### L 100.0100, L500.4050, L501.2450, L501.4020 ####[facility] [address] [place], [address] GAP 10 Normal 5-15 [facility] Comment on above: Order Comment: 'TROP ' Serial specimen #1, #2 or #3: 1 Performed By: #### L 100.0100, L500.4050, L501.2450, L501.4020 ####[facility] [address] [place], [address] GFR/1.73 sq M.predicted among non-blacks MDRD (S/P/Bld) [Vol rate/Area] 78 mL/min/{1.73_m2} Normal >60 [facility] Comment on above: Order Comment: 'TROP ' Serial specimen #1, #2 or #3: 1 Result Comment: Non- GFR Calc Performed By: #### L 100.0100, L500.4050, L501.2450, L501.4020 ####[facility] [address] [place], [address] Globulin (S) [Mass/Vol] 3.9 g/dL Normal 2.2-4.2 [facility] Comment on above: Order Comment: 'TROP ' Serial specimen #1, #2 or #3: 1 Performed By: #### L 100.0100, L500.4050, L501.2450, L501.4020 ####[facility] [address] [place], [address] Glucose [Mass/Vol] 95 mg/dL Normal 74-106 [facility] Comment on above: Order Comment: 'TROP ' Serial specimen #1, #2 or #3: 1 Performed By: #### L 100.0100, L500.4050, L501.2450, L501.4020 ####[facility] [address] [place], [address] Potassium [Moles/Vol] 3.5 mmol/L Normal 3.5-5.1 [facility] Comment on above: Order Comment: 'TROP ' Serial specimen #1, #2 or #3: 1 Performed By: #### L 100.0100, L500.4050, L501.2450, L501.4020 ####[facility] [address] [place], [address] Sodium [Moles/Vol] 141 mmol/L Normal 136-145 [facility] Comment on above: Order Comment: 'TROP ' Serial specimen #1, #2 or #3: 1 Performed By: #### L 100.0100, L500.4050, L501.2450, L501.4020 ####[facility] [address] [place], [address] T PROT 7.5 g/dL Normal 6.4-8.2 [facility] Comment on above: Order Comment: 'TROP ' Serial specimen #1, #2 or #3: 1 Performed By: #### L 100.0100, L500.4050, L501.2450, L501.4020 ####[facility] [address] [place], [address] Urea nitrogen [Mass/Vol] 11 mg/dL Normal 7-18 [facility] Comment on above: Order Comment: 'TROP ' Serial specimen #1, #2 or #3: 1 Performed By: #### L 100.0100, L500.4050, L501.2450, L501.4020 ####[facility] [address] [place], [address] Emergency Department Summary on 05-01-2024 Emergency Department Summary Normal [facility] L501.4020on 05-01-2024 TROPONIN-I HS 30 pg/mL Normal 3.0-54.0 [facility] Comment on above: Order Comment: 'TROP ' Serial specimen #1, #2 or #3: 1 Result Comment: Plea se Note: New Test Units and Gender Specific Reference Ranges. For more information see Policy Stat Procedure [place] High Sensitivity Troponin (TNIH) and attachments. Performed By: #### L 100.0100, L500.4050, L501.2450, L501.4020 ####[facility] [address] [place], [address] Lipaseon 05-01-2024 Lipase [Catalytic activity/Vol] 14 U/L Normal 13-75 [facility] Comment on above: Order Comment: 'TROP ' Serial specimen #1, #2 or #3: 1 Result Comment: Plea se note:LIPASE revised reference range effective 22.New Lipase methodology. Expected to produce lower valuesthan the previous assay method.NEW Reference Range: 13 - 75 U/L Performed By: #### L 100.0100, L500.4050, L501.2450, L501.4020 ####[facility] [address] [place], [address] M100.678on 05-01-2024 M100.678 Pending SARS-CoV-2 (COVID 19) Negative INFLUENZA A Negative INFLUENZA B Negative RSV PCR Negative Normal [facility] Comment on above: Performed By: #### M 100.678 ####[facility] [address] [place], [address] Urinalysis, Completeon 05-01 BACTERIA RARE Normal None Seen [facility] Comment on above: Order Comment: CLEAN CATCH Performed By: #### L 400.0001 ####[facility] [address] [place], [address] EPI,SQUAMOUS 10-25 SEEN Normal 5-10 [facility] Comment on above: Order Comment: CLEAN CATCH Performed By: #### L 400.0001 ####[facility] [address] [place], [address] EPI,TRANSITION 0-5 SEEN Normal 0-5 [facility] Comment on above: Order Comment: CLEAN CATCH Performed By: #### L 400.0001 ####[facility] [address] [place], [address] WBC 0-5 SEEN Normal 0-5 [facility] Comment on above: Order Comment: CLEAN CATCH Performed By: #### L 400.0001 ####[facility] [address] [place], [address] Mucus Ql (Urine sed) 0 SEEN Normal [facility] Comment on above: Order Comment: CLEAN CATCH Performed By: #### L 400.0001 ####[facility] [address] [place], [address] RBC 0 SEEN Normal 0-5 [facility] Comment on above: Order Comment: CLEAN CATCH Performed By: #### L 400.0001 ####[facility] [address] [place], [address] [facility] 04-28-2024 CNPN Telephone (CAWSTR) ANA IVORY ([id number]) 1940 F Date Time Provider Department 04/28/24 NURSE CARD ADMIN [facility] CATR During your visit today, we recorded [...] floor at Radiology: [address]; [place] [address] * If you need to cancel or reschedule this test or have any questions regarding this test, please call [phone]. Allergies As of Date: 04/28/2024 Noted Allergy [...] 12/29/2020 14 - Other: See Comments NEOSPORIN ([id number]* 2 - Rash Comments: blisters PIOGLITAZONE 12/29/2020 [...] at bedtime. (Dr. Genny funes) - Insulin Campbell, Disposable, (BD ULTRA-FINE FOZIA PEN NEEDLE) 32 gauge x 5/32 Use one needle (more content not included)... Normal [facility] Office Visit Reporton 2023 Office Visit Report Normal [facility] Endocrinology Visit Reporton 04-07-2024 Endocrinology Visit Report Normal [facility] XR Chest PA and Lateralon IMPRESSION: No acute radiographic abnormality. 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 DIVISION OF RADIOLOGY Provider, [facility] - 02/12/2024 * * *Final Report* * [...] finding. IMPRESSION IMPRESSION: No acute radiographic abnormality. [employer] Fire Fighter: ABHILASH Transcribe Date/Time: Feb 12 2024 11:41A Dictated by : RAKESH MULLEN DO This examination was interpreted and the report reviewed and electronically signed by: RAKESH MULLEN DO on Feb 12 2024 11:44AM EST [facility] Radiology Study observation (narrative) [facility] XR Chest PA and LateralOrder ed By: [facility] Provider on 02-12-2024 [facility] ALBUMIN/CREATININE RATIO, UR INEon 02-01-2024 Albumin DL <= 20 mg/L (U) [Mass/Vol] mg/L mg/L [facility] Albumin/Creatinine (U) [Mass ratio] mg/g NINF - 30 mg/g [facility] Comment on above: Adult Male and Femal [...] [Mass/Vol] 87.9 mg/dL 20.0 - 300.0 mg/dL [facility] ECG COMPLETEon 02-01-2024 Atrial Rate 87 BPM [facility] Calculated P [place] 54 degrees [facility] Calculated R [place] -21 degrees [facility] Calculated T [place] 54 degrees [facility] P-R Interval 166 ms [facility] QRS Duration 88 ms [facility] QT Interval 386 ms [facility] QTC Calculation (Bazett) 464 ms [facility] Ventricular Rate 87 BPM [facility] NORMAL SINUS RHYTHM EARLY R WAVE TRANSITION BORDERLINE ECG Confirmed by MD ROBLES GREGORY () on 02/01/2024 8:39:51 [facility] NAME : SARAH IVORY PID : [id number] : 1940 Gender : Female Race : ORD : [id number] Procedure Date : Jan 31 2024 11:04:48 Edit Date : Feb 01 2024 08:39:52 Diagnosis: NORMAL SINUS RHYTHM EARLY R WAVE TRANSITION BORDERLINE ECG Confirmed by MD ROBLES GREGORY () on 02/01/2024 8:39:51 AM Test Reason : R07.9 Chest pain, unspecified type Location : 185 : [facility] Overread By : MD ROBLES GREGORY Edited By : MD ROBLES GREGORY Referred By : CLARENCE BERRY Acquired by : Rhonda [facility]INT[facility] UA DIP, URINE (POC)on 2023 BILIRUBIN UA (POCT) Negative Negative David [facility] CLARITY UA (POCT) Cloudy [facility] COLOR UA (POCT) Dark yellow [facility] GLUCOSE UA (POCT) Negative Negative mg/dL [facility] Hemoglobin Ql (U) Small Abnormal Negative [facility] Interpretation and review of laboratory results Abnormal [facility] KETONE UA (POCT) Negative Negative mg/dL [facility] LEUKOCYTES UA (POCT) Moderate Abnormal Negative [facility] NITRITE UA (POCT) Positive Abnormal Negative [facility] PH UA (POCT) 5.0 4.5 - 8.0 [facility] Protein Ql (U) 100 mg/dL Abnormal Negative [facility] SPECIFIC GRAVITY UA (POCT) 1.015 1.005 - 1.030 [facility] UROBILINOGEN UA (POCT) 0.2 Karla l E.U./dL [facility] Location:[address], [place], [place], [address] [place] [address] POINT OF CARE [facility] CBC panel Auto (Bld)on 09-28 Erythrocyte distribution width (RBC) [Ratio] 13.2 % 11.5 - 15.0 % [facility] Hematocrit (Bld) [Volume fraction] 37.8 % 36.0 - 46.0 % [facility] Hemoglobin (Bld) [Mass/Vol] 12.8 g/dL 11.5 - 15.5 g/dL [facility] MCH (RBC) [Entitic mass] 31.4 pg 26.0 - 34.0 pg [facility] MCHC (RBC) [Mass/Vol] 33.9 g/dL 30.5 - 36.0 g/dL [facility] MCV (RBC) [Entitic vol] 92.9 fL 80.0 - 100.0 fL [facility] Nucleated RBC (Bld) [#/Vol] <0.01 k/uL [facility] Platelet mean volume (Bld) [Entitic vol] 9.7 fL 9.0 - 12.7 fL [facility] Platelets (Bld) [#/Vol] 219 10*3/uL 150 - 400 k/uL [facility] RBC (Bld) [#/Vol] 4.07 10*6/uL 3.90 - 5.20 m/uL [facility] WBC (Bld) [#/Vol] 6.60 10*3/uL 3.70 - 11.00 k/uL [facility] Comprehensive metabolic 2000 panelon 09-28-2023 Albumin [Mass/Vol] 4.0 g/dL 3.9 - 4.9 g/dL [facility] ALP [Catalytic activity/Vol] 88 U/L 34 - 123 U/L [facility] ALT [Catalytic activity/Vol] 12 U/L 7 - 38 U/L [facility] Anion gap [Moles/Vol] 10 mmol/L 9 - 18 mmol/L [facility] AST [Catalytic activity/Vol] 13 U/L 13 - 35 U/L [facility] Bilirubin [Mass/Vol] 0.4 mg/dL 0.2 - 1 .3 mg/dL [facility] Calcium [Mass/Vol] 8.9 mg/dL 8.5 - 10. 2 mg/dL [facility] Chloride [Moles/Vol] 102 mmol/L 97 - 10 5 mmol/L [facility] CO2 [Moles/Vol] 27 mmol/L 22 - 30 mmol/L [facility] Creatinine [Mass/Vol] 0.68 mg/dL 0.58 - 0.96 mg/dL [facility] Estimated Glomerular Filtration Rate 88 mL/min/1.73m >=60 mL/min/1.7 3m [facility] Glucose [Mass/Vol] 289 mg/dL High 74 - 99 mg/dL [facility] Potassium [Moles/Vol] 4.3 mmol/L 3.7 - 5.1 mmol/L [facility] Protein [Mass/Vol] 6.6 g/dL 6.3 - 8.0 g/dL [facility] Sodium [Moles/Vol] 139 mmol/L 136 - 144 mmol/L [facility] Urea nitrogen [Mass/Vol] 15 mg/dL 7 - 21 mg/dL [facility] HbA1c (Bld)on 09-28-2023 Average glucose Estimated from glycated hemoglobin (Bld) [Mass/Vol] 183 mg/dL [facility] HbA1c (Bld) [Mass fraction] 8.0 % High 4.3 - 5.6 % [facility] Laboratory - Hematology and Cell countson 07-31-2023 HbA1c (Bld) [Mass fraction] 8.4 % 4.2-6.3 [facility] Glucose Glucometer (BldC) [M ass/Vol]Ordered By: Denzel Forbes on 06-26-2023 Glucose [Mass/Vol] 254 mg/dL 74-106 [facility] Comment on above: MANAGEMENT OF PATIEN T CARE PER NURSING PROTOCOL Absolute lymphocyte countOrd ered By: Denzel Forbes on 06-21-2023 Lymphocytes Auto (Unsp spec) [#/Vol] 1.92 10*3/uL 0.83-4.51 [facility] Basophil percentageOrdered B y: Denzel Forbes on 06-21-2023 Basophils/100 WBC (Bld) 0.6 % 0-1 [facility] Chloride [Moles/Vol] 99 mmol/L 98-107 [facility] Eosinophils/100 WBC (Bld) 3.7 % 0-5 [facility] Glucose [Mass/Vol] 215 mg/dL 74-106 [facility] Comment on above: Glucose result great er than or equal to 200 mg/dLsuggests DIABETES MELLITUS per A.D.A. criteria. Neutrophils (Bld) [#/Vol] 8.9 10*3/uL 2.0-7.7 [facility] Neutrophils/100 WBC (Bld) 70.9 % 47-70 [facility] Potassium [Moles/Vol] 4.5 mmol/L 3.5-5.1 [facility] Sodium [Moles/Vol] 137 mmol/L 136-145 [facility] WBC (Bld) [#/Vol] 12.6 10*3/uL 4.4-11.0 [facility] Blood erythrocytes count (nu mber/volume)Ordered By: Denzel Forbes on 06-21-2023 RBC (Bld) [#/Vol] 4.52 10*6/uL 4.2-5.4 [facility] Blood hemoglobin measurement (mass/volume)Ordered By: Denzel Forbes on 06-21-2023 Hemoglobin (Bld) [Mass/Vol] 13.9 g/dL 12.0-15.0 [facility] Blood lymphocytes/100 leukoc ytesOrdered By: Denzel Forbes on 06-21-2023 Lymphocytes/100 WBC (Bld) 15.2 % 19-41 [facility] Blood monocytes/100 leukocyt esOrdered By: Denzel Forbes on 06-21-2023 Monocytes/100 WBC (Bld) 9.3 % 0-10 [facility] Blood platelet mean volumeOr dered By: Denzel Forbes on 06-21-2023 Platelet mean volume (Bld) [Entitic vol] 10.0 fL 6.2-12.0 [facility] Determination of erythrocyte mean corpuscular volume (MCV)Ordered By: Denzel Forbes on 06-21-2023 MCV (RBC) [Entitic vol] 96.2 fL 81-99 [facility] Hematocrit Auto (Bld) [Volum e fraction]Ordered By: Denzel Forbes on 06-21-2023 Hematocrit (Bld) [Volume fraction] 43.5 % 37-47 [facility] Laboratory - Chemistry and C hemistry - challengeOrdered By: Denzel Andrei 06-21-2023 CO2 [Moles/Vol] 30.0 mmol/L 21.0-32.0 [facility] Urea nitrogen/Creatinine [Mass ratio] 21.7 mg/mg 10-20 [facility] Laboratory - Hematology and Cell countsOrdered By: Denzel Forbes 06-21-2023 Erythrocyte distribution width (RBC) [Entitic vol] 48.2 fL 35.1-43.9 [facility] Erythrocyte distribution width (RBC) [Ratio] 13.6 % 11.6-14.6 [facility] Immature granulocytes/100 WBC (Bld) 0.300 % 0.0-0.9 [facility] Comment on above: IG% - Immature Granu locytes (promyelocytes, myelocytes and metamyelocytes) > 1% indicates that a LEFT SHIFT is Present. MCH (RBC) [Entitic mass] 30.8 pg 27.0-32.0 [facility] Nucleated RBC/100 WBC (Bld) [Ratio] 0 % 0-5 [facility] MCHC Auto (RBC) [Mass/Vol]Or dered By: Denzel Forbes on 06-21-2023 MCHC (RBC) [Mass/Vol] 32.0 g/dL 32-36 [facility] No Panel InformationOrdered By: Denzel Forbes on 06-21-2023 Estimated Creatinine Clearance Calc 32.92 ml/min [facility] Estimated GFR (MDRD) Amer 64 mL/min >60 [facility] Comment on above: GFR Calc Estimated GFR (MDRD) Non-Af Amer 53 mL/min >60 [facility] Comment on above: Non- GFR Calc Platelets bldOrdered By: Denzel Forbes on 06-21-2023 Platelets (Bld) [#/Vol] 304 10*3/uL 150-450 [facility] Serum or plasma calcium stephie urement (mass/volume)Ordered By: Denzel Forbes on 06-21-2023 Calcium [Mass/Vol] 9.4 mg/dL 8.5-10.1 [facility] Serum or plasma creatinine m easurement (mass/volume)Ordered By: Denzel Forbes on 06-21-2023 Creatinine [Mass/Vol] 1.06 mg/dL 0.55-1.02 [facility] Comment on above: The validity of the calculated GFR & GFRAA in patients over 70 years has not been determined. Clinical correlation is essential. Serum or plasma urea nitroge n measurement (mass/volume)Ordered By: Denzel Forbes on 06-21-2023 Urea nitrogen [Mass/Vol] 23 mg/dL 7-18 [facility] Thin prep Papanicolaou smear with manual screeningOrdered By: Denzel Forbes on 06-21-2023 Thin prep Papanicolaou smear with manual screening 8 5-15 [facility] Glucose Glucometer (BldC) [M ass/Vol]Ordered By: Denzel Forbes on 06-19-2023 Glucose [Mass/Vol] 244 mg/dL 74-106 [facility] Comment on above: MANAGEMENT OF PATIEN T CARE PER NURSING PROTOCOL Glucose Glucometer (BldC) [M ass/Vol]Ordered By: Denzel Forbes on 06-18-2023 Glucose [Mass/Vol] 202 mg/dL 74-106 [facility] Comment on above: MANAGEMENT OF PATIEN T CARE PER NURSING PROTOCOL Absolute lymphocyte countOrd ered By: Denzel Forbes on 06-14-2023 Lymphocytes Auto (Unsp spec) [#/Vol] 1.94 10*3/uL 0.83-4.51 [facility] Basophil percentageOrdered B y: Denzel Forbes on 06-14-2023 Basophils/100 WBC (Bld) 0.4 % 0-1 [facility] Chloride [Moles/Vol] 104 mmol/L 98-107 [facility] Eosinophils/100 WBC (Bld) 5.6 % 0-5 [facility] Glucose [Mass/Vol] 258 mg/dL 74-106 [facility] Comment on above: Glucose result great er than or equal to 200 mg/dLsuggests DIABETES MELLITUS per A.D.A. criteria. Neutrophils (Bld) [#/Vol] 3.6 10*3/uL 2.0-7.7 [facility] Neutrophils/100 WBC (Bld) 53.7 % 47-70 [facility] Potassium [Moles/Vol] 3.6 mmol/L 3.5-5.1 [facility] Sodium [Moles/Vol] 138 mmol/L 136-145 [facility] WBC (Bld) [#/Vol] 6.7 10*3/uL 4.4-11.0 [facility] Blood erythrocytes count (nu mber/volume)Ordered By: Denzel Forbes on 06-14-2023 RBC (Bld) [#/Vol] 4.01 10*6/uL 4.2-5.4 [facility] Blood hemoglobin measurement (mass/volume)Ordered By: Denzel Forbes on 06-14-2023 Hemoglobin (Bld) [Mass/Vol] 12.5 g/dL 12.0-15.0 [facility] [facility] Blood lymphocytes/100 leukoc ytesOrdered By: Denzel Forbes on 06-14-2023 Lymphocytes/100 WBC (Bld) 28.8 % 19-41 [facility] Blood monocytes/100 leukocyt esOrdered By: Denzel Forbes on 06-14-2023 Monocytes/100 WBC (Bld) 11.1 % 0-10 [facility] Blood platelet mean volumeOr dered By: Denzel Forbes on 06-14-2023 Platelet mean volume (Bld) [Entitic vol] 9.6 fL 6.2-12.0 [facility] Determination of erythrocyte mean corpuscular volume (MCV)Ordered By: Denzel Forbes on 06-14-2023 MCV (RBC) [Entitic vol] 91.5 fL 81-99 [facility] Hematocrit Auto (Bld) [Volum e fraction]Ordered By: Denzel Forbes on 06-14-2023 Hematocrit (Bld) [Volume fraction] 36.7 % 37-47 [facility] Laboratory - Chemistry and C hemistry - challengeOrdered By: Denzel Forbes on 06-14-2023 CO2 [Moles/Vol] 27.0 mmol/L 21.0-32.0 [facility] Urea nitrogen/Creatinine [Mass ratio] 23.6 mg/mg 10-20 [facility] Laboratory - Hematology and Cell countsOrdered By: Denzel Forbes on 06-14-2023 Erythrocyte distribution width (RBC) [Entitic vol] 45.3 fL 35.1-43.9 [facility] Erythrocyte distribution width (RBC) [Ratio] 13.5 % 11.6-14.6 [facility] Immature granulocytes/100 WBC (Bld) 0.400 % 0.0-0.9 [facility] Comment on above: IG% - Immature Granu locytes (promyelocytes, myelocytes and metamyelocytes) > 1% indicates that a LEFT SHIFT is Present. MCH (RBC) [Entitic mass] 31.2 pg 27.0-32.0 [facility] Nucleated RBC/100 WBC (Bld) [Ratio] 0 % 0-5 [facility] MCHC Auto (RBC) [Mass/Vol]Or dered By: Denzel Forbes on 06-14-2023 MCHC (RBC) [Mass/Vol] 34.1 g/dL 32-36 [facility] No Panel InformationOrdered By: Denzel Forbes on 06-14-2023 Estimated Creatinine Clearance Calc 34.90 ml/min [facility] Estimated GFR (MDRD) Amer 107 mL/min >60 [facility] Comment on above: GFR Calc Estimated GFR (MDRD) Non-Af Amer 89 mL/min >60 [facility] Comment on above: Non- GFR Calc Platelets bldOrdered By: Denzel Forbes on 06-14-2023 Platelets (Bld) [#/Vol] 218 10*3/uL 150-450 [facility] Serum or plasma calcium stephie urement (mass/volume)Ordered By: Denzel Forbes on 06-14-2023 Calcium [Mass/Vol] 8.5 mg/dL 8.5-10.1 [facility] Serum or plasma creatinine m easurement (mass/volume)Ordered By: Denzel Forbes on 06-14-2023 Creatinine [Mass/Vol] 0.68 mg/dL 0.55-1.02 [facility] Comment on above: The validity of the calculated GFR & GFRAA in patients over 70 years has not been determined. Clinical correlation is essential. Serum or plasma urea nitroge n measurement (mass/volume)Ordered By: Denzel Forbes on 06-14-2023 Urea nitrogen [Mass/Vol] 16 mg/dL 7-18 [facility] Thin prep Papanicolaou smear with manual screeningOrdered By: Denzel Forbes on 06-14-2023 Thin prep Papanicolaou smear with manual screening 7 5-15 [facility] Absolute lymphocyte countOrd ered By: Nacho Poe on 06-13-2023 Lymphocytes Auto (Unsp spec) [#/Vol] 1.66 10*3/uL 0.83-4.51 [facility] Basophil percentageOrdered B y: Nacho Poe on 06-13-2023 Basophil percentage 2.7 mg/dL 2.5-4.9 [facility] Basophils/100 WBC (Bld) 0.6 % 0-1 [facility] Chloride [Moles/Vol] 108 mmol/L 98-107 [facility] Eosinophils/100 WBC (Bld) 6.8 % 0-5 [facility] Glucose [Mass/Vol] 223 mg/dL 74-106 [facility] Comment on above: Glucose result great er than or equal to 200 mg/dLsuggests DIABETES MELLITUS per A.D.A. criteria. Neutrophils (Bld) [#/Vol] 3.9 10*3/uL 2.0-7.7 [facility] Neutrophils/100 WBC (Bld) 56.9 % 47-70 [facility] Potassium [Moles/Vol] 3.5 mmol/L 3.5-5.1 [facility] Sodium [Moles/Vol] 138 mmol/L 136-145 [facility] WBC (Bld) [#/Vol] 6.9 10*3/uL 4.4-11.0 [facility] Blood erythrocytes count (nu mber/volume)Ordered By: Nacho Poe on 06-13-2023 RBC (Bld) [#/Vol] 4.29 10*6/uL 4.2-5.4 [facility] Blood hemoglobin measurement (mass/volume)Ordered By: Nacho Poe on 06-13-2023 Hemoglobin (Bld) [Mass/Vol] 13.0 g/dL 12.0-15.0 [facility] Blood lymphocytes/100 leukoc ytesOrdered By: Nacho Poe on 06-13-2023 Lymphocytes/100 WBC (Bld) 24.1 % 19-41 [facility] Blood monocytes/100 leukocyt esOrdered By: Nacho Poe on 06-13-2023 Monocytes/100 WBC (Bld) 11.2 % 0-10 [facility] Blood platelet mean volumeOr dered By: Nacho Poe on 06-13-2023 Platelet mean volume (Bld) [Entitic vol] 10.0 fL 6.2-12.0 [facility] Determination of erythrocyte mean corpuscular volume (MCV)Ordered By: Nacho Poe on 06-13-2023 MCV (RBC) [Entitic vol] 90.2 fL 81-99 [facility] Glucose Glucometer (BldC) [M ass/Vol]Ordered By: Nacho Poe on 06-13-2023 Glucose [Mass/Vol] 335 mg/dL 74-106 [facility] Comment on above: MANAGEMENT OF PATIEN T CARE PER NURSING PROTOCOL Hematocrit Auto (Bld) [Volum e fraction]Ordered By: Nacho Poe on 06-13-2023 Hematocrit (Bld) [Volume fraction] 38.7 % 37-47 [facility] Laboratory - Chemistry and C hemistry - challengeOrdered By: Nacho Poe on 06-13-2023 CO2 [Moles/Vol] 27.0 mmol/L 21.0-32.0 [facility] Magnesium [Mass/Vol] 1.9 mg/dL 1.6-2.6 [facility] Urea nitrogen/Creatinine [Mass ratio] 18.5 mg/mg 10-20 [facility] Laboratory - Hematology and Cell countsOrdered By: Nacho Poe on 06-13-2023 Erythrocyte distribution width (RBC) [Entitic vol] 43.2 fL 35.1-43.9 [facility] Erythrocyte distribution width (RBC) [Ratio] 13.2 % 11.6-14.6 [facility] Immature granulocytes/100 WBC (Bld) 0.400 % 0.0-0.9 [facility] Comment on above: IG% - Immature Granu locytes (promyelocytes, myelocytes and metamyelocytes) > 1% indicates that a LEFT SHIFT is Present. MCH (RBC) [Entitic mass] 30.3 pg 27.0-32.0 [facility] Nucleated RBC/100 WBC (Bld) [Ratio] 0 % 0-5 [facility] MCHC Auto (RBC) [Mass/Vol]Or dered By: Nacho Poe on 06-13-2023 MCHC (RBC) [Mass/Vol] 33.6 g/dL 32-36 [facility] No Panel InformationOrdered By: Nacho Poe on 06-13-2023 Estimated Creatinine Clearance Calc 34.90 ml/min [facility] Estimated GFR (MDRD) Amer 113 mL/min >60 [facility] Comment on above: GFR Calc Estimated GFR (MDRD) Non-Af Amer 93 mL/min >60 [facility] Comment on above: Non- GFR Calc Platelets bldOrdered By: Newton Poe on 06-13-2023 Platelets (Bld) [#/Vol] 213 10*3/uL 150-450 [facility] Serum or plasma calcium stephie urement (mass/volume)Ordered By: Nacho Poe on 06-13-2023 Calcium [Mass/Vol] 8.7 mg/dL 8.5-10.1 [facility] Serum or plasma creatinine m easurement (mass/volume)Ordered By: Nacho Poe on 06-13-2023 Creatinine [Mass/Vol] 0.65 mg/dL 0.55-1.02 [facility] Comment on above: The validity of the calculated GFR & GFRAA in patients over 70 years has not been determined. Clinical correlation is essential. Serum or plasma urea nitroge n measurement (mass/volume)Ordered By: Nacho Poe on 06-13-2023 Urea nitrogen [Mass/Vol] 12 mg/dL 7-18 [facility] Thin prep Papanicolaou smear with manual screeningOrdered By: Nacho Poe on 06-13-2023 Thin prep Papanicolaou smear with manual screening 3 5-15 [facility] Laboratory - Chemistry and C hemistry - challengeOrdered By: Edwin Morgan on 06-11-2023 CK [Catalytic activity/Vol] 240 U/L 26-192 [facility] Serum or plasma acetone stephie urement (mass/volume)Ordered By: Edwin Morgan on 06-11-2023 Acetone [Mass/Vol] SMALL NEG [facility] Comment on above: Previous reported re sult: NEGATIVE Edited by: KEMAR on 06/11/23:0706 AMENDED REPORT 06/11/23 0706 ACETONE SERUM previously reported as: NEGATIVE Absolute lymphocyte countOrd ered By: Dada Maynard on 06-10-2023 Lymphocytes Auto (Unsp spec) [#/Vol] 0.73 10*3/uL 0.83-4.51 [facility] Basophil percentageOrdered B y: Dada Maynard on 06-10-2023 Lactate [Moles/Vol] 1.7 mmol/L 0.4-2.0 [facility] Basophils/100 WBC (Bld) 0.1 % 0-1 [facility] Bilirubin [Mass/Vol] 0.50 mg/dL 0.20-1.00 [facility] Comment on above: For patients on eltr ombopag therapy, use of Dimension [place] TBIL is not recommended. Chloride [Moles/Vol] 105 mmol/L 98-107 [facility] Eosinophils/100 WBC (Bld) 2.1 % 0-5 [facility] Glucose [Mass/Vol] 238 mg/dL 74-106 [facility] Comment on above: Glucose result great er than or equal to 200 mg/dLsuggests DIABETES MELLITUS per A.D.A. criteria. Lactate [Moles/Vol] 2.9 mmol/L 0.4-2.0 [facility] Comment on above: Critical Result(s) Checo Dunlap at: 18:41:00 06/10/2023 by: CCrytzer. Results read back by same. Neutrophils (Bld) [#/Vol] 11.1 10*3/uL 2.0-7.7 [facility] Neutrophils/100 WBC (Bld) 86.1 % 47-70 [facility] Potassium [Moles/Vol] 3.9 mmol/L 3.5-5.1 [facility] Protein [Mass/Vol] 8.0 g/dL 6.4-8.2 [facility] Sodium [Moles/Vol] 134 mmol/L 136-145 [facility] WBC (Bld) [#/Vol] 12.9 10*3/uL 4.4-11.0 [facility] Blood erythrocytes count (nu mber/volume)Ordered By: Ddaa Maynard on 06-10-2023 RBC (Bld) [#/Vol] 4.94 10*6/uL 4.2-5.4 [facility] Blood hemoglobin measurement (mass/volume)Ordered By: Dada Maynard on 06-10-2023 Hemoglobin (Bld) [Mass/Vol] 15.3 g/dL 12.0-15.0 [facility] Blood lymphocytes/100 leukoc ytesOrdered By: Dada Maynard on 06-10-2023 Lymphocytes/100 WBC (Bld) 5.7 % 19-41 [facility] Blood monocytes/100 leukocyt esOrdered By: Dada Maynard on 06-10-2023 Monocytes/100 WBC (Bld) 5.8 % 0-10 [facility] Blood platelet mean volumeOr dered By: Dada Maynard on 06-10-2023 Platelet mean volume (Bld) [Entitic vol] 9.8 fL 6.2-12.0 [facility] COVID-19 virus antigen assay Ordered By: Dada Maynard on 06-10-2023 SARS-CoV-2 (COVID-19) Ag IA.rapid Ql (Resp) [facility] Culture, urineOrdered By: Rainer Maynard on 06-10-2023 Bacteria identified Cx Nom (U) Culture exhibits no growth. [facility] Determination of erythrocyte mean corpuscular volume (MCV)Ordered By: Dada Maynard on 06-10-2023 MCV (RBC) [Entitic vol] 90.7 fL 81-99 [facility] Hematocrit Auto (Bld) [Volum e fraction]Ordered By: Dada Maynard on 06-10-2023 Hematocrit (Bld) [Volume fraction] 44.8 % 37-47 [facility] INR in Blood by Coagulation assayOrdered By: Dada Maynard on 06-10-2023 INR Coag (Bld) [Relative time] 1.1 {INR} [facility] Laboratory - Chemistry and C hemistry - challengeOrdered By: Dada Maynard on 06-10-2023 ALP [Catalytic activity/Vol] 109 U/L 45-117 [facility] ALT [Catalytic activity/Vol] 19 U/L 13-56 [facility] CK [Catalytic activity/Vol] 301 U/L 26-192 [facility] CO2 [Moles/Vol] 17.0 mmol/L 21.0-32.0 [facility] Globulin (S) [Mass/Vol] 4.5 g/dL 2.2-4.2 [facility] Urea nitrogen/Creatinine [Mass ratio] 19.3 mg/mg 10-20 [facility] Laboratory - CoagulationOrde red By: Dada Maynard on 06-10-2023 aPTT Coag (Bld) [Time] 27.6 s 24.1-36.[address] [facility] PT Coag (PPP) [Time] 14.0 s 11.7-14.9 [facility] Laboratory - Hematology and Cell countsOrdered By: Dada Maynard on 06-10-2023 Erythrocyte distribution width (RBC) [Entitic vol] 43.3 fL 35.1-43.9 [facility] Erythrocyte distribution width (RBC) [Ratio] 13.2 % 11.6-14.6 [facility] Immature granulocytes/100 WBC (Bld) 0.200 % 0.0-0.9 [facility] Comment on above: IG% - Immature Granu locytes (promyelocytes, myelocytes and metamyelocytes) > 1% indicates that a LEFT SHIFT is Present. MCH (RBC) [Entitic mass] 31.0 pg 27.0-32.0 [facility] Nucleated RBC/100 WBC (Bld) [Ratio] 0 % 0-5 [facility] Laboratory - Microbiology an d Antimicrobial susceptibilityOrdered By: Dada Maynard on 06-10-2023 Bacteria identified Cx Nom (Bld) No growth in 5 days. [facility] MCHC Auto (RBC) [Mass/Vol]Or dered By: Dada Maynard on 06-10-2023 MCHC (RBC) [Mass/Vol] 34.2 g/dL 32-36 [facility] No Panel InformationOrdered By: Dada Maynard on 06-10-2023 Estimated Creatinine Clearance Calc 39.65 ml/min [facility] Estimated GFR (MDRD) Amer 79 mL/min >60 [facility] Comment on above: GFR Calc Estimated GFR (MDRD) Non-Af Amer 66 mL/min >60 [facility] Comment on above: Non- GFR Calc Platelets bldOrdered By: Aidan Maynard on 06-10-2023 Platelets (Bld) [#/Vol] 252 10*3/uL 150-450 [facility] Serum or plasma albumin stephie urement (mass/volume)Ordered By: Dada Maynard on 06-10-2023 Albumin [Mass/Vol] 3.5 g/dL 3.2-5.0 [facility] Serum or plasma albumin/glob ulin mass ratioOrdered By: Dada Maynard on 06-10-2023 Albumin/Globulin [Mass ratio] 0.8 {ratio} 0.9-2.4 [facility] Serum or plasma calcium stephie urement (mass/volume)Ordered By: Dada Maynard on 06-10-2023 Calcium [Mass/Vol] 9.1 mg/dL 8.5-10.1 [facility] Serum or plasma creatinine m easurement (mass/volume)Ordered By: Dada Maynard on 06-10-2023 Creatinine [Mass/Vol] 0.88 mg/dL 0.55-1.02 [facility] Comment on above: The validity of the calculated GFR & GFRAA in patients over 70 years has not been determined. Clinical correlation is essential. Serum or plasma urea nitroge n measurement (mass/volume)Ordered By: Dada Maynard on 10-29-2023 Urea nitrogen [Mass/Vol] 17 mg/dL 7-18 [facility] Thin prep Papanicolaou smear with manual screeningOrdered By: Dada Maynard on 06-10-2023 Thin prep Papanicolaou smear with manual screening 11 U/L 15-37 [facility] Thin prep Papanicolaou smear with manual screening 12 5-15 [facility] ANES POSTPROC EVALon 023 ANES POSTPROC EVAL HNO ID: [id number] Author: Sabino Nelson DO Service: Anesthesiology Author Type: Physician Type: Anesthesia Postprocedure Evaluation Filed: 06/06/2023 12:55 PM Note Text: POST ANESTHESIA EVALUATION NOTE : 1940 Procedure Summary Date: 06/06/23 Room / Location: [facility] Endoscopy Anesthesia Start: 1145 Anesthesia Stop: 1215 Procedure: EGD DIAGNOSTIC Diagnosis: 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 (Dysphagia) Scheduled Providers: Erik Underwood MD; Gael Landa APRN.JUNIOR JAVA DEVELOPER; Sabino Nelson DO Responsible Provider: Sabino Nelson [...] June 06, 2023 TIME: 12:55 PM CSN: [id number] Normal [facility] ANES PRE-OPon 06-06-2023 ANES PRE-OP HNO ID: [id number] Author: Sabino Nelson DO Service: Anesthesiology Author Type: Physician Type: Anesthesia Preprocedure Evaluation Filed: 06/06/2023 11:26 AM Note Text: ANESTHESIOLOGY DAY OF SURGERY NOTE : 1940 Procedure Information Date/Time: 06/06/23 1300 Scheduled providers: Erik Underwood MD; Gael Landa APRN.JUNIOR JAVA DEVELOPER; Sabino Nelson DO Procedure: EGD DIAGNOSTIC Location: [facility] Endoscopy Estimated body mass index is 26.52 [...] and consent discussed: yes. Patient / Responsible Republican agrees to proceed: yes Patient / Surrogate [...] daily. For 30 days - multivitamin-folic acid-biotin (MVQL-[id number], [id number],) 400-2,000 mcg tab Take by mouth. - [...] once daily. Take with food - Insulin Campbell, Disposable, (BD ULTRA-FINE FOZIA PEN NEEDLE) 32 [...] NEEDED FOR SHORTNESS OF BREATH/WHEEZING - fexofenadine (LYDIA) 180 mg tablet Take 1 tablet by mouth once daily. As directed for allergies - CRANBERRY - Insulin Campbell, Disposable, (more content not included)... Normal [facility] EGD DIAGNOSTICon 06-06-2023 [facility] GLUCOSE, BLOOD (POC)on 06-06 Glucose [Mass/Vol] 234 mg/dL Abnormal 74 - 99 mg/dL [facility] Glucose [Mass/Vol] 275 mg/dL Abnormal 74 - 99 mg/dL [facility] HISTORY PHYSICALon HISTORY PHYSICAL HNO ID: [id number] Author: Erik Underwood MD Service: General Surgery Author Type: Physician Type: HANDP Filed: 06/06/2023 11:57 AM Note Text: HISTORY AND PHYSICAL Ana Ivory 1940 REFERRING PHYSICIAN: Clarence Berry APRN.DRUPAL PHP DEVELOPER CHIEF COMPLAINT: Consult (EGD consultation.) HPI: The [...] esophagus C. difficile diarrhea 10/18/2011 Cataract 04/17/2013 [facility], Dr. Dada Rodríguez. Mild cataract in L eye- no need for cataract surgery at this time. Continue to follow up the cataract. 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 At this time, we anticipate that [...] mg by m (more content not included)... [facility] SURGICAL PATHOLOGYon 023 CASE REPORT [facility] Comment on above: Order Comment: Speci men Type: TISSUE SPECIMEN Ordering Facility: [facility] Address: [address] [place] [id number] Result Comment: Surg ical Pathology Report Case: [id number] Authorizing Provider: Erik Underwood MD Collected: 06/06/2023 12:01 PM Ordering Location: [facility] Received: 06/06/2023 03:24 PM Pathologist: Katherin Rubio MD Specimens: A) - DUODENUM BIOPSY B) - ANTRUM (STOMACH) BIOPSY C) - ESOPHAGUS LOWER BIOPSY, Irregular Z-Line D) - ESOPHAGUS MID BIOPSY Performed By: #### S #### [facility] CLIA [id number] [address] DIAGNOSIS COMMENT Intraepithelial eosi nophils are not identified in the mid esophagus. Fungal forms are not identified. [facility] Comment on above: Order Comment: Speci men Type: TISSUE SPECIMEN Ordering Facility: [facility] Address: [address] [place] [address] Performed By: #### S #### [facility] CLIA [id number] [facility] [address] FINAL DIAGNOSIS [facility] Comment on above: Order Comment: Speci men Type: TISSUE SPECIMEN Ordering Facility: [facility] Address: [address] [place] [address] Result Comment: A. D uodenum, biopsy: - [...] comment. AEB/mm/06/08/2023 Performed By: #### S #### [facility] CLIA [id number] [address] FINAL PERFORMING LAB [facility] Comment on above: Order Comment: Speci men Type: TISSUE SPECIMEN Ordering Facility: [facility] Address: [address] [place] [address] Result Comment: Diag nostic interpretation performed at [facility], [address] [place] [address] CLIA# [id number] Stair Builder: Sebastian Woodward M.D. Performed By: #### S #### [facility] CLIA [id number] [address] [place] [address] [place] GROSS DESCRIPTION Normal [facility] Comment on above: Order Comment: Speci men Type: TISSUE SPECIMEN Ordering Facility: [facility] Address: [address] [place] [address] Result Comment: A. D UODENUM BIOPSY Received [...] in one cassette. Gross examination performed at [facility], [address] [place] [address] June 06, 2023 8:11 PM Performed By: #### S #### [facility] CLIA [id number] [address] [place] [address] [place] Upper GI endoscopy 10-25-2 023 Upper GI endoscopy [facility] Gastrointestinal Endoscopy Patient Name: Ana Ivory Procedure Date: 06/06/2023 11:33 AM Date of : 1940 Admit Type: Outpatient Age: 83 Room: [facility] Gender: Female Note Status: Finalized Attending MD: [...] years for surveillance. - Return to physician field administrative assistant in 1 week. - Perform an esophagram at appointment to be scheduled. Procedure Code(s): --- Professional --- 02743, Esophagogastroduodenoscopy, flexible, transoral; with biopsy, single or multiple Diagnosis Code(s): --- Professional --- K22.70, 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 R13.10, Dysphagia, unspecified CPT copyright 2020 [employer]. All rights reserved. The codes documented in this report are preliminary and upon home fire alarm installer review may be revised to meet current compliance requirements. Attending Participation: I personally performed the entire procedure. Scope In: 12:00:10 PM Scope Out: 12:05:16 PM MD Erik Durham MD 06/06/2023 12:11:48 PM This report has been signed electronically by Erik Underwood MD Number of Addenda: 0 Note Initiated On: 06/06/2023 11:33 AM Estimated Blood Loss: Estimated blood loss was minimal. Normal [facility] Laboratory - Hematology and Cell countson 03-05-2023 HbA1c (Bld) [Mass fraction] 7.4 % 4.2-6.3 [facility] XR Foot - right AP and Later al and obliqueon 01-01-2023 IMPRESSION: Nondisplaced fracture of the base of the distal phalanx of the right first toe Marine Fire Fighter: ABHILASH Transcribe Date/Time: Jan 01 2023 3:11P Dictated by : CAMERON ZAMARRIPA MD This examination was interpreted and the report reviewed and electronically signed by: CAMERON ZAMARRIPA MD on Jan 01 2023 3:13PM [facility] DIVISION OF RADIOLOGY * * *Final Report* [...] maintained. DIVISION OF RADIOLOGY Provider, Malou Spicer [facility] - 01/01/2023 * * *Final Report* [...] distal phalanx of the right first toe Marine Fire Fighter: ABHILASH Transcribe Date/Time: Jan 01 2023 3:11P Dictated by : CAMERON ZAMARRIPA MD This examination was interpreted and the report reviewed and electronically signed by: CAMERON ZAMARRIPA MD on Jan 01 2023 3:13PM EST [facility] Radiology Study observation (narrative) [facility] XR Foot - right AP and Later al and obliqueOrdered By: Ccf Provider on 01-01-2023 [facility] No Panel Informationon 10-10 [facility] CBC panel Auto (Bld)on 08-02 Erythrocyte distribution width (RBC) [Ratio] 13.7 % 11.5 - 15.0 % [facility] Hematocrit (Bld) [Volume fraction] 37.8 % 36.0 - 46.0 % [facility] Hemoglobin (Bld) [Mass/Vol] 12.9 g/dL 11.5 - 15.5 g/dL [facility] MCH (RBC) [Entitic mass] 31.2 pg 26.0 - 34.0 pg [facility] MCHC (RBC) [Mass/Vol] 34.1 g/dL 30.5 - 36.0 g/dL [facility] MCV (RBC) [Entitic vol] 91.5 fL 80.0 - 100.0 fL [facility] Nucleated RBC (Bld) [#/Vol] <0.01 k/uL [facility] Platelet mean volume (Bld) [Entitic vol] 9.8 fL 9.0 - 12.7 fL [facility] Platelets (Bld) [#/Vol] 230 10*3/uL 150 - 400 k/uL [facility] RBC (Bld) [#/Vol] 4.13 10*6/uL 3.90 - 5.20 m/uL [facility] WBC (Bld) [#/Vol] 7.40 10*3/uL 3.70 - 11.00 k/uL [facility] Comprehensive metabolic 2000 panelon 08-02-2022 Albumin [Mass/Vol] 4.3 g/dL 3.9 - 4.9 g/dL [facility] ALP [Catalytic activity/Vol] 94 U/L 34 - 123 U/L [facility] ALT [Catalytic activity/Vol] 17 U/L 7 - 38 U/L [facility] Anion gap [Moles/Vol] 12 mmol/L 9 - 18 mmol/L [facility] AST [Catalytic activity/Vol] 19 U/L 13 - 35 U/L [facility] Bilirubin [Mass/Vol] 0.4 mg/dL 0.2 - 1 .3 mg/dL [facility] Calcium [Mass/Vol] 8.8 mg/dL 8.5 - 10. 2 mg/dL [facility] Chloride [Moles/Vol] 104 mmol/L 97 - 10 5 mmol/L [facility] CO2 [Moles/Vol] 26 mmol/L 22 - 30 mmol/L [facility] Creatinine [Mass/Vol] 0.69 mg/dL 0.58 - 0.96 mg/dL [facility] Estimated Glomerular Filtration Rate 88 mL/min/1.73m >=60 mL/min/1.7 3m [facility] Glucose [Mass/Vol] 232 mg/dL High 74 - 99 mg/dL [facility] Potassium [Moles/Vol] 4.1 mmol/L 3.7 - 5.1 mmol/L [facility] Protein [Mass/Vol] 6.8 g/dL 6.3 - 8.0 g/dL [facility] Sodium [Moles/Vol] 142 mmol/L 136 - 144 mmol/L [facility] Urea nitrogen [Mass/Vol] 17 mg/dL 7 - 21 mg/dL [facility] Laboratory - Hematology and Cell countson 05-26-2022 HbA1c (Bld) [Mass fraction] 7.5 % 4.2-6.3 [facility] No Panel Informationon 04-03 [facility] XR ANKLE GENERAL 3V AP/LAT/O BL RIGHTon 01-30-2022 [facility] XR Ankle - right AP and Late ral and obliqueon 01-30-2022 IMPRESSION: No acute osseous abnormality identified. Marine Fire Fighter: ABHILASH Transcribe Date/Time: Jan 30 2022 12:55P [...] ankle. ZZZ_DO_NOT _USE_DIVIS ION OF RADIOLOGY Provider, [facility] - 01/30/2022 * * *Final Report* [...] IMPRESSION IMPRESSION: No acute osseous abnormality identified. Marine Fire Fighter: ABHILASH Transcribe Date/Time: Jan 30 2022 12:55P Dictated by : LORENA KUMAR MD This examination was interpreted and the report reviewed and electronically signed by: LORENA KUMAR MD on Jan 30 2022 12:56PM EST [facility] Radiology Study observation (narrative) Geraldine mejia [facility] XR Ankle - right AP and Late ral and obliqueOrdered By: [facility] Provider on 01-30-2022 [facility] EGD - THERAPEUTIC, EUS, OR T UBE INTERVENTIONSon 12-21-2021 [facility] GLUCOSE, BLOOD (POC)on 12-21 Glucose [Mass/Vol] 261 mg/dL Abnormal 74 - 99 mg/dL [facility] Glucose [Mass/Vol] 248 mg/dL Abnormal 74 - 99 mg/dL [facility] XR Chest PA and Lateralon IMPRESSION: No acute radiographic abnormality. Marine Fire Fighter: ABHILASH Transcribe Date/Time: Jun 03 2021 1:12P Dictated by : CAMERON ZAMARRIPA MD This examination was interpreted and the report reviewed and electronically signed by: CAMERON ZAMARRIPA MD on Jun 03 2021 1:16PM [facility] DIVISION OF RADIOLOGY * * *Final Report* [...] the thoracic spine. DIVISION OF RADIOLOGY Provider, [facility] - 06/03/2021 * * *Final Report* [...] spine. IMPRESSION IMPRESSION: No acute radiographic abnormality. Marine Fire Fighter: PSCB Transcribe Date/Time: Jun 03 2021 1:12P Dictated by : CAMERON ZAMARRIPA MD This examination was interpreted and the report reviewed and electronically signed by: CAMERON ZAMARRIPA MD on Jun 03 2021 1:16PM [facility] Radiology Study observation (narrative) [facility] XR Chest PA and LateralOrder ed By: [facility] Provider on 06-03-2021 [facility] Vital Signs Date Time Vital Sign Value Performing Clinician Facility 07-15-2024 13:16-0500 Diastolic blood pressure 68 mm[Hg] Alicia Blount MD Work Phone: [facility] 07-15-2024 13:16-0500 Systolic blood pressure 132 mm[Hg] Alicia Blount MD Work Phone: [facility] 07-15-2024 12:13-0500 Body mass index (BMI) [Ratio] 28.87 kg/m2 Alicia Blount MD Work Phone: [facility] 07-15-2024 12:13-0500 Body temperature 97.81 [degF] Alicia Blount MD Work Phone: [facility] 07-15-2024 12:13-0500 Body weight 71.6 kg Alicia Blount MD Work Phone: [facility] 07-15-2024 12:13-0500 Heart rate 82 /min Alicia Blount MD Work Phone: [facility] 07-15-2024 12:13-0500 Respiratory rate 16 /min Alicia Blount MD Work Phone: [facility] 07-15-2024 12:13-0500 SaO2% (BldA) [Mass fraction] 97 % Alicia Blount MD Work Phone: [facility] 05-27-2024 11:04-0400 Body mass index (BMI) [Ratio] 29.92 kg/m2 Alicia Blount MD Work Phone: [facility] 05-27-2024 11:04-0400 Body temperature 97.59 [degF] Alicia Blount MD Work Phone: [facility] 05-27-2024 11:04-0400 Body weight 74.2 kg Alicia Blount MD Work Phone: [facility] 05-27-2024 11:04-0400 Diastolic blood pressure 68 mm[Hg] Alicia Blount MD Work Phone: [facility] 05-27-2024 11:04-0400 Heart rate 83 /min Alicia Blount MD Work Phone: [facility] 05-27-2024 11:04-0400 Respiratory rate 16 /min Alicia Blount MD Work Phone: [facility] 05-27-2024 11:04-0400 SaO2% (BldA) [Mass fraction] 97 % Alicia Blount MD Work Phone: [facility] 05-27-2024 11:04-0400 Systolic blood pressure 128 mm[Hg] Alicia Blount MD Work Phone: [facility] 02-17-2024 13:09-0400 Body mass index (BMI) [Ratio] 28.35 kg/m2 Antoinette Agrawal APRN.DRIER ATTENDANT Work Phone: [facility] 02-17-2024 13:09-0400 Body temperature 98.01 [degF] Antoinette Agrawal APRN.DRIER ATTENDANT Work Phone: [facility] 02-17-2024 13:09-0400 Body weight 70.3 kg Antoinette Agrawal APRN.DRIER ATTENDANT Work Phone: [facility] 02-17-2024 13:09-0400 Diastolic blood pressure 72 mm[Hg] Antoinette Agrawal AUDIO VISUAL ARTS DIRECTOR.DRIER ATTENDANT Work Phone: [facility] 02-17-2024 13:09-0400 Heart rate 99 /min Antoinette Agrawal APRN.DRIER ATTENDANT Work Phone: [facility] 02-17-2024 13:09-0400 Respiratory rate 20 /min Antoinette Agrawal APRN.DRIER ATTENDANT Work Phone: [facility] 02-17-2024 13:09-0400 SaO2% (BldA) [Mass fraction] 99 % Antoinette Agrawal APRN.DRIER ATTENDANT Work Phone: [facility] 02-17-2024 13:09-0400 Systolic blood pressure 120 mm[Hg] Antoinette Agrawal AUDIO VISUAL ARTS DIRECTOR.DRIER ATTENDANT Work Phone: [facility] 02-12-2024 10:43-0400 Body mass index (BMI) [Ratio] 29.15 kg/m2 Martin Munguia APRN.DRIER ATTENDANT Work Phone: [facility] 02-12-2024 10:43-0400 Body temperature 97.3 [degF] Martin Munguia APRN.DRIER ATTENDANT Work Phone: [facility] 02-12-2024 10:43-0400 Body weight 72.3 kg Martin Munguia APRN.DRIER ATTENDANT Work Phone: [facility] 02-12-2024 10:43-0400 Diastolic blood pressure 80 mm[Hg] Martin Munguia APRN.DRIER ATTENDANT Work Phone: [facility] 02-12-2024 10:43-0400 Heart rate 82 /min Martin Munguia APRN.DRIER ATTENDANT Work Phone: [facility] 02-12-2024 10:43-0400 Respiratory rate 18 /min Martin Munguia APRN.DRIER ATTENDANT Work Phone: [facility] 02-12-2024 10:43-0400 SaO2% (BldA) [Mass fraction] 96 % Martin Ezra AUDIO VISUAL ARTS DIRECTOR.DRIER ATTENDANT Work Phone: [facility] 02-12-2024 10:43-0400 Systolic blood pressure 132 mm[Hg] Martin AUDIO VISUAL ARTS DIRECTOR.DRIER ATTENDANT Work Phone: [facility] 01-31-2024 10:10-0400 Diastolic blood pressure 82 mm[Hg] Clarence Berry AUDIO VISUAL ARTS DIRECTOR.DRUPAL PHP DEVELOPER Work Phone: [facility] Comment on above: bp average 01-31-2024 10:10-0400 Heart rate 84 /min Clarence Berry AUDIO VISUAL ARTS DIRECTOR.DRUPAL PHP DEVELOPER Work Phone: [facility] 01-31-2024 10:10-0400 Systolic blood pressure 148 mm[Hg] Clarence Berry AUDIO VISUAL ARTS DIRECTOR.DRUPAL PHP DEVELOPER Work Phone: [facility] Comment on above: bp average 01-31-2024 10:09-0400 Body mass index (BMI) [Ratio] 28.9 kg/m2 Clarence Berry AUDIO VISUAL ARTS DIRECTOR.DRUPAL PHP DEVELOPER Work Phone: [facility] 01-31-2024 10:09-0400 Body weight 71.67 kg Clarence Berry AUDIO VISUAL ARTS DIRECTOR.DRUPAL PHP DEVELOPER Work Phone: [facility] 01-31-2024 10:09-0400 Respiratory rate 16 /min Clarence Mcgregors AUDIO VISUAL ARTS DIRECTOR.DRUPAL PHP DEVELOPER Work Phone: [facility] 12-09-2023 10:38-0400 Body mass index (BMI) [Ratio] 28.63 kg/m2 Antoinette Agrawal APRN.DRIER ATTENDANT Work Phone: [facility] 12-09-2023 10:38-0400 Body temperature 97.9 [degF] Antoinette Agrawal AUDIO VISUAL ARTS DIRECTOR.DRIER ATTENDANT Work Phone: [facility] 12-09-2023 10:38-0400 Body weight 71 kg Antoinette Agrawal APRN.DRIER ATTENDANT Work Phone: [facility] 12-09-2023 10:38-0400 Diastolic blood pressure 74 mm[Hg] Antoinette Agrawal AUDIO VISUAL ARTS DIRECTOR.DRIER ATTENDANT Work Phone: [facility] 12-09-2023 10:38-0400 Heart rate 92 /min Antoinette Agrawal APRN.DRIER ATTENDANT Work Phone: [facility] 12-09-2023 10:38-0400 Respiratory rate 18 /min Antoinette Agrawal APRN.DRIER ATTENDANT Work Phone: [facility] 12-09-2023 10:38-0400 SaO2% (BldA) [Mass fraction] 96 % Antoinette Agrawal APRN.DRIER ATTENDANT Work Phone: [facility] 12-09-2023 10:38-0400 Systolic blood pressure 126 mm[Hg] Antoinette Agrawal APRN.DRIER ATTENDANT Work Phone: [facility] 10-01-2023 11:13-0500 Body height 157.5 cm Alicia Blount MD Work Phone: [facility] 10-01-2023 11:13-0500 Body weight 67.13 kg Alicia Blount MD Work Phone: [facility] 10-01-2023 11:13-0500 Diastolic blood pressure 80 mm[Hg] Alicia Blount MD Work Phone: [facility] 10-01-2023 11:13-0500 Heart rate 74 /min Alicia Blount MD Work Phone: [facility] 10-01-2023 11:13-0500 Respiratory rate 16 /min Alicia Blount MD Work Phone: [facility] 10-01-2023 11:13-0500 Systolic blood pressure 128 mm[Hg] Alicia Blount MD Work Phone: [facility] 07-31-2023 10:34-0500 Body height 157.[address] Alicia Blount Work Phone: [facility] 07-31-2023 10:34-0500 Body mass index (BMI) [Ratio] 25.7 kg/m2 Dr. Alicia Blount Work Phone: [facility] 07-31-2023 10:34-0500 Body temperature 98.7 [degF] Dr. Alicia Blount Work Phone: 9(031)644-098165 [place] [address] 07-31-2023 10:34-0500 Body weight 63.[address] Alicia Blount Work Phone: 2(016)268-941658 [place] [address] 07-31-2023 10:34-0500 Diastolic blood pressure 66 mm[Hg] Dr. Alicia Blount Work Phone: 4(309)340-311658 [place] [address] 07-31-2023 10:34-0500 Heart rate 72 /min Dr. Alicia Blount Work Phone: 9(934)479-215858 [place] [address] 07-31-2023 10:34-0500 Respiratory rate 16 /min Dr. Alicia Blount Work Phone: 1(013)110-719458 [place] [address] 07-31-2023 10:34-0500 SaO2% (BldA) [Mass fraction] 96 % Dr. Alicia Blount Work Phone: 2(628)818-495958 [place] [address] 07-31-2023 10:34-0500 Systolic blood pressure 136 mm[Hg] Dr. Alicia Blount Work Phone: 1(986)323-028258 [place] [address] 07-19-2023 14:02-0500 Body mass index (BMI) [Ratio] 25.9 kg/m2 Dr. Alicia Blount Work Phone: 6(268)473-058658 [place] [address] 07-19-2023 14:02-0500 Body weight 64.[address] Alicia Blount Work Phone: 9(657)511-861658 [place] [address] 07-16-2023 13:49-0500 Body temperature 97.5 [degF] Dr. Alicia Blount Work Phone: 7(869)612-531758 [place] [address] 07-16-2023 13:49-0500 Diastolic blood pressure 76 mm[Hg] Dr. Alicia Blount Work Phone: 2(238)048-427958 [place] [address] 07-16-2023 13:49-0500 Heart rate 65 /min Dr. Alicia Blount Work Phone: 0(768)915-861358 [place] [address] 07-16-2023 13:49-0500 Respiratory rate 15 /min Dr. Alicia Blount Work Phone: [facility] 07-16-2023 13:49-0500 SaO2% (BldA) [Mass fraction] 99 % Dr. Alicia Blount Work Phone: [facility] 07-16-2023 13:49-0500 Systolic blood pressure 116 mm[Hg] Dr. Alicia Blount Work Phone: [facility] 07-02-2023 14:57-0500 Body weight 65.32 kg Clarence Berry AUDIO VISUAL ARTS DIRECTOR.DRUPAL PHP DEVELOPER Work Phone: [facility] 07-02-2023 14:57-0500 Diastolic blood pressure 78 mm[Hg] Clarence Berry AUDIO VISUAL ARTS DIRECTOR.DRUPAL PHP DEVELOPER Work Phone: [facility] 07-02-2023 14:57-0500 Heart rate 75 /min Clarence Berry AUDIO VISUAL ARTS DIRECTOR.DRUPAL PHP DEVELOPER Work Phone: [facility] 07-02-2023 14:57-0500 Respiratory rate 16 /min Clarence Berry AUDIO VISUAL ARTS DIRECTOR.DRUPAL PHP DEVELOPER Work Phone: [facility] 07-02-2023 14:57-0500 Systolic blood pressure 139 mm[Hg] Clarence Berry AUDIO VISUAL ARTS DIRECTOR.DRUPAL PHP DEVELOPER Work Phone: [facility] 06-26-2023 11:41-0500 Body temperature 97.6 [degF] Dr. Alicia Blount Work Phone: [facility] 06-26-2023 11:41-0500 Diastolic blood pressure 68 mm[Hg] Dr. Alicia Blount Work Phone: [facility] 06-26-2023 11:41-0500 Heart rate 86 /min Dr. Alicia Blount Work Phone: [facility] 06-26-2023 11:41-0500 Respiratory rate 18 /min Dr. Alicia Blount Work Phone: [facility] 06-26-2023 11:41-0500 SaO2% (BldA) [Mass fraction] 95 % Dr. Alicia Blount Work Phone: 3(779)403-736658 [place] [address] 06-26-2023 11:41-0500 Systolic blood pressure 136 mm[Hg] Dr. Alicia Blount Work Phone: 2(874)014-616658 [place] [address] 06-20-2023 11:36-0500 Body weight 64.[address] Alicia Blount Work Phone: 5(218)026-562958 [place] [address] 06-19-2023 12:49-0500 Body temperature 96.9 [degF] Dr. Alicia Blount Work Phone: 3(859)590-249858 [place] [address] 06-19-2023 12:49-0500 Diastolic blood pressure 68 mm[Hg] Dr. Alicia Blount Work Phone: 1(495)176-653958 [place] [address] 06-19-2023 12:49-0500 Heart rate 82 /min Dr. Alicia Blount Work Phone: 2(828)367-444358 [place] [address] 06-19-2023 12:49-0500 Respiratory rate 17 /min Dr. Alicia Blount Work Phone: 8(353)454-615058 [place] [address] 06-19-2023 12:49-0500 SaO2% (BldA) [Mass fraction] 99 % Dr. Alicia Blount Work Phone: 1(058)769-138358 [place] [address] 06-19-2023 12:49-0500 Systolic blood pressure 122 mm[Hg] Dr. Alicia Blount Work Phone: 9(096)097-025158 [place] [address] 06-19-2023 10:19-0500 Body mass index (BMI) [Ratio] 26.2 kg/m2 Dr. Alicia Blount Work Phone: 2(759)289-199558 [place] [address] 06-19-2023 10:19-0500 Body weight 64.[address] Alicia Blount Work Phone: 2(504)049-402158 [place] [address] 06-18-2023 10:00-0500 Heart rate 72 /min Dr. Alicia Blount Work Phone: 4(922)171-571358 [place] [address] 06-17-2023 14:58-0500 Body temperature 97.3 [degF] Dr. Alicia Blount Work Phone: 3(987)953-843458 [place] [address] 06-17-2023 14:58-0500 Diastolic blood pressure 58 mm[Hg] Dr. Alicia Blount Work Phone: 9(791)986-748058 [place] [address] 06-17-2023 14:58-0500 Respiratory rate 16 /min Dr. Alicia Blount Work Phone: 0(211)470-175458 [place] [address] 06-17-2023 14:58-0500 SaO2% (BldA) [Mass fraction] 96 % Dr. Alicia Blount Work Phone: 0(840)583-246158 [place] [address] 06-17-2023 14:58-0500 Systolic blood pressure 127 mm[Hg] Dr. Alicia Blount Work Phone: 0(147)401-852458 [place] [address] 06-15-2023 14:33-0400 Body height 157.[address] Alicia Blount Work Phone: 9(892)107-131058 [place] [address] 06-15-2023 14:33-0400 Body weight 66.[address] Alicia Blount Work Phone: 0(121)959-674358 [place] [address] 06-13-2023 14:58-0400 Body mass index (BMI) [Ratio] 26.9 kg/m2 Dr. Alicia Blount Work Phone: 7(364)737-905058 [place] [address] 06-13-2023 12:00-0400 Body temperature 98.2 [degF] Dr. Alicia Blount Work Phone: 7(350)494-322058 [place] [address] 06-13-2023 12:00-0400 Diastolic blood pressure 75 mm[Hg] Dr. Alicia Blount Work Phone: 9(612)001-461958 [place] [address] 06-13-2023 12:00-0400 Heart rate 92 /min Dr. Alicia Blount Work Phone: 0(721)604-885058 [place] [address] 06-13-2023 12:00-0400 Respiratory rate 18 /min Dr. Alicia Blount Work Phone: 6(581)034-742058 [place] [address] 06-13-2023 12:00-0400 SaO2% (BldA) [Mass fraction] 100 % Dr. Alicia Blount Work Phone: 5(577)877-135865 [place] [address] 06-13-2023 12:00-0400 Systolic blood pressure 131 mm[Hg] Dr. Alicia Blount Work Phone: 0(311)068-916458 [place] [address] 06-11-2023 10:50-0400 Body weight 65.[address] Alicia Blount Work Phone: 9(857)489-517158 [place] [address] 06-10-2023 21:53-0400 Body mass index (BMI) [Ratio] 26.4 kg/m2 Dr. Alicia Blount Work Phone: 4(152)792-563558 [place] [address] 06-10-2023 19:49-0400 Body temperature 98.4 [degF] Dr. Alicia Blount Work Phone: 3(094)260-275658 [place] [address] 06-10-2023 19:49-0400 Diastolic blood pressure 61 mm[Hg] Dr. Alicia Blount Work Phone: 3(472)345-145858 [place] [address] 06-10-2023 19:49-0400 Heart rate 104 /min Dr. Alicia Blount Work Phone: 9(847)545-689858 [place] [address] 06-10-2023 19:49-0400 Respiratory rate 19 /min Dr. Alicia Blount Work Phone: 0(292)887-374758 [place] [address] 06-10-2023 19:49-0400 SaO2% (BldA) [Mass fraction] 95 % Dr. Alicia Blount Work Phone: 9(396)043-101258 [place] [address] 06-10-2023 19:49-0400 Systolic blood pressure 126 mm[Hg] Dr. Alicia Blount Work Phone: 9(936)225-819665 [place] [address] 06-10-2023 16:59-0400 Body height 157.[address] Alicia Blount Work Phone: 9(489)354-765358 [place] [address] 06-10-2023 16:59-0400 Body mass index (BMI) [Ratio] 27.1 kg/m2 Dr. Alicia Blount Work Phone: [facility] 06-10-2023 16:59-0400 Body weight 67.[address] Alicia Blount Work Phone: 0(397)241-967565 [place] [address] 06-07-2023 13:28-0400 Body mass index (BMI) [Ratio] 26.1 kg/m2 Dr. Alicia Blount Work Phone: 4(776)369-679565 [place] [address] 06-07-2023 13:28-0400 Body temperature 97.8 [degF] Dr. Alicia Blount Work Phone: 2(370)525-712758 [place] [address] 06-07-2023 13:28-0400 Body weight 64.[address] Alicia Blount Work Phone: 7(372)375-299158 [place] [address] 06-07-2023 13:28-0400 Diastolic blood pressure 80 mm[Hg] Dr. Alicia Blount Work Phone: 8(430)698-251465 [place] [address] 06-07-2023 13:28-0400 Heart rate 87 /min Dr. Alicia Blount Work Phone: 1(496)369-072465 [place] [address] 06-07-2023 13:28-0400 Respiratory rate 17 /min Dr. Alicia Blount Work Phone: 4(974)389-464465 [place] [address] 06-07-2023 13:28-0400 SaO2% (BldA) [Mass fraction] 95 % Dr. Alicia Blount Work Phone: 3(175)577-412365 [place] [address] 06-07-2023 13:28-0400 Systolic blood pressure 136 mm[Hg] Dr. Alicia Blount Work Phone: 7(127)479-894565 [place] [address] 06-06-2023 12:30-0400 Body temperature 98.2 [degF] Erik Underwood MD Work Phone: [facility] 06-06-2023 12:30-0400 Diastolic blood pressure 73 mm[Hg] Erik Underwood MD Work Phone: [facility] 06-06-2023 12:30-0400 Heart rate 74 /min Erik Underwood MD Work Phone: [facility] 06-06-2023 12:30-0400 Respiratory rate 15 /min Erik Underwood MD Work Phone: [facility] 06-06-2023 12:30-0400 SaO2% (BldA) [Mass fraction] 97 % Erik Underwood MD Work Phone: [facility] 06-06-2023 12:30-0400 Systolic blood pressure 156 mm[Hg] Erik Underwood MD Work Phone: [facility] 06-06-2023 10:58-0400 Body height 157.5 cm Erik Underwood MD Work Phone: [facility] 06-06-2023 10:58-0400 Body weight 65.77 kg Erik Underwood MD Work Phone: [facility] 06-04-2023 09:45-0400 Body height 157.5 cm Radha Balderrama MD Work Phone: [facility] 06-04-2023 09:45-0400 Body temperature 97.81 [degF] Radha Balderrama MD Work Phone: [facility] 06-04-2023 09:45-0400 Body weight 66.13 kg Radha Balderrama MD Work Phone: [facility] 06-04-2023 09:45-0400 Diastolic blood pressure 78 mm[Hg] Radha Balderrama MD Work Phone: [facility] 06-04-2023 09:45-0400 Heart rate 83 /min Radha Balderrama MD Work Phone: [facility] 06-04-2023 09:45-0400 SaO2% (BldA) [Mass fraction] 94 % Radha Balderrama MD Work Phone: [facility] 06-04-2023 09:45-0400 Systolic blood pressure 122 mm[Hg] Radha Balderrama MD Work Phone: [facility] 05-31-2023 09:52-0400 Body weight 65.77 kg Clarence Berry APRN.[facility] Work Phone: [facility] 05-31-2023 09:52-0400 Diastolic blood pressure 76 mm[Hg] Clarence Berry AUDIO VISUAL ARTS DIRECTOR.DRUPAL PHP DEVELOPER Work Phone: [facility] 05-31-2023 09:52-0400 Heart rate 78 /min Clarence Berry AUDIO VISUAL ARTS DIRECTOR.DRUPAL PHP DEVELOPER Work Phone: [facility] 05-31-2023 09:52-0400 Respiratory rate 16 /min Clarence Berry AUDIO VISUAL ARTS DIRECTOR.DRUPAL PHP DEVELOPER Work Phone: [facility] 05-31-2023 09:52-0400 Systolic blood pressure 133 mm[Hg] Clarence Berry AUDIO VISUAL ARTS DIRECTOR.DRUPAL PHP DEVELOPER Work Phone: [facility] 04-08-2023 12:38-0400 Body temperature 98.29 [degF] Navya Older AUDIO VISUAL ARTS DIRECTOR.DRIER ATTENDANT Work Phone: [facility] 04-08-2023 12:38-0400 Body weight 66.59 kg Navya Older AUDIO VISUAL ARTS DIRECTOR.DRIER ATTENDANT Work Phone: [facility] 04-08-2023 12:38-0400 Diastolic blood pressure 72 mm[Hg] Navya Older AUDIO VISUAL ARTS DIRECTOR.DRIER ATTENDANT Work Phone: [facility] 04-08-2023 12:38-0400 Heart rate 80 /min Navya Older AUDIO VISUAL ARTS DIRECTOR.DRIER ATTENDANT Work Phone: [facility] 04-08-2023 12:38-0400 Respiratory rate 22 /min Navya Older AUDIO VISUAL ARTS DIRECTOR.DRIER ATTENDANT Work Phone: [facility] 04-08-2023 12:38-0400 SaO2% (BldA) [Mass fraction] 98 % Navya Older AUDIO VISUAL ARTS DIRECTOR.DRIER ATTENDANT Work Phone: [facility] 04-08-2023 12:38-0400 Systolic blood pressure 138 mm[Hg] Navya Older AUDIO VISUAL ARTS DIRECTOR.DRIER ATTENDANT Work Phone: [facility] 03-07-2023 07:56-0400 Body mass index (BMI) [Ratio] 26.3 kg/m2 Dr. Alicia Blount Work Phone: [facility] 03-07-2023 07:56-0400 Body temperature 97.8 [degF] Dr. Alicia Blount Work Phone: 4(758)086-418058 [place] [address] 03-07-2023 07:56-0400 Body weight 65.[address] Alicia Blount Work Phone: 9(248)714-147758 [place] [address] 03-07-2023 07:56-0400 Diastolic blood pressure 84 mm[Hg] Dr. Alicia Blount Work Phone: 3(183)043-832858 [place] [address] 03-07-2023 07:56-0400 Heart rate 80 /min Dr. Alicia Blount Work Phone: 2(964)158-998558 [place] [address] 03-07-2023 07:56-0400 Respiratory rate 18 /min Dr. Alicia Blount Work Phone: 2(988)576-123058 [place] [address] 03-07-2023 07:56-0400 SaO2% (BldA) [Mass fraction] 97 % Dr. Alicia Blount Work Phone: 0(363)247-972658 [place] [address] 03-07-2023 07:56-0400 Systolic blood pressure 136 mm[Hg] Dr. Alicia Blount Work Phone: 7(209)060-099858 [place] [address] 03-05-2023 10:08-0400 Body mass index (BMI) [Ratio] 27.4 kg/m2 Dr. Alicia Blount Work Phone: 8(568)037-958558 [place] [address] 03-05-2023 10:08-0400 Body temperature 98 [degF] Dr. Alicia Blount Work Phone: 3(766)295-940658 [place] [address] 03-05-2023 10:08-0400 Body weight 68.[address] Alicia Blount Work Phone: 1(900)176-439358 [place] [address] 03-05-2023 10:08-0400 Diastolic blood pressure 80 mm[Hg] Dr. Alicia Blount Work Phone: 4(580)[phone] [place] [address] 03-05-2023 10:08-0400 Heart rate 70 /min Dr. Alicia Blount Work Phone: 5(800)300-362258 [place] [address] 03-05-2023 10:08-0400 Respiratory rate 16 /min Dr. Alicia Blount Work Phone: [facility] 03-05-2023 10:08-0400 SaO2% (BldA) [Mass fraction] 96 % Dr. Alicia Blount Work Phone: [facility] 03-05-2023 10:08-0400 Systolic blood pressure 146 mm[Hg] Dr. Alicia Blount Work Phone: [facility] 10-17-2022 15:05-0500 Body weight 71.67 kg Clarence Berry AUDIO VISUAL ARTS DIRECTOR.DRUPAL PHP DEVELOPER Work Phone: [facility] 10-17-2022 15:05-0500 Diastolic blood pressure 80 mm[Hg] Clarence Berry AUDIO VISUAL ARTS DIRECTOR.DRUPAL PHP DEVELOPER Work Phone: [facility] 10-17-2022 15:05-0500 Heart rate 68 /min Clarence Berry AUDIO VISUAL ARTS DIRECTOR.DRUPAL PHP DEVELOPER Work Phone: [facility] 10-17-2022 15:05-0500 Respiratory rate 16 /min Clarence Berry AUDIO VISUAL ARTS DIRECTOR.DRUPAL PHP DEVELOPER Work Phone: [facility] 10-17-2022 15:05-0500 SaO2% (BldA) [Mass fraction] 98 % Clarence Berry AUDIO VISUAL ARTS DIRECTOR.DRUPAL PHP DEVELOPER Work Phone: [facility] 10-17-2022 15:05-0500 Systolic blood pressure 130 mm[Hg] Clarence Berry AUDIO VISUAL ARTS DIRECTOR.DRUPAL PHP DEVELOPER Work Phone: [facility] 10-10-2022 10:10-0500 Body weight 71.67 kg Clarence Berry AUDIO VISUAL ARTS DIRECTOR.DRUPAL PHP DEVELOPER Work Phone: [facility] 10-10-2022 10:10-0500 Diastolic blood pressure 88 mm[Hg] Clarence Berry AUDIO VISUAL ARTS DIRECTOR.DRUPAL PHP DEVELOPER Work Phone: [facility] 10-10-2022 10:10-0500 Heart rate 72 /min Clarence Berry AUDIO VISUAL ARTS DIRECTOR.DRUPAL PHP DEVELOPER Work Phone: [facility] 10-10-2022 10:10-0500 Respiratory rate 16 /min Clarence Berry AUDIO VISUAL ARTS DIRECTOR.DRUPAL PHP DEVELOPER Work Phone: [facility] 10-10-2022 10:10-0500 SaO2% (BldA) [Mass fraction] 98 % Clarence Berry AUDIO VISUAL ARTS DIRECTOR.DRUPAL PHP DEVELOPER Work Phone: [facility] 10-10-2022 10:10-0500 Systolic blood pressure 136 mm[Hg] Clarence Berry AUDIO VISUAL ARTS DIRECTOR.DRUPAL PHP DEVELOPER Work Phone: [facility] 09-30-2022 09:29-0500 Body weight 71.67 kg Alicia Blount MD Work Phone: [facility] 09-30-2022 09:29-0500 Diastolic blood pressure 82 mm[Hg] Alicia Blount MD Work Phone: [facility] 09-30-2022 09:29-0500 Heart rate 84 /min Alicia Blount MD Work Phone: [facility] 09-30-2022 09:29-0500 Respiratory rate 16 /min Alicia Blount MD Work Phone: [facility] 09-30-2022 09:29-0500 Systolic blood pressure 158 mm[Hg] Alicia Blount MD Work Phone: [facility] 08-15-2022 13:00-0500 Body height 157.[address] Alicia Blount Work Phone: [facility] 08-15-2022 13:00-0500 Body weight 71.[address] Alicia Blount Work Phone: [facility] 08-15-2022 13:00-0500 Heart rate 80 /min Dr. Alicia Blount Work Phone: [facility] 08-15-2022 13:00-0500 Inhaled oxygen concentration 21 % Dr. Alicia Blount Work Phone: [facility] 08-15-2022 13:00-0500 SaO2% (BldA) [Mass fraction] 97 % Dr. Alicia Blount Work Phone: 1(331)[phone] [place] [address] 07-26-2022 13:12-0500 Body mass index (BMI) [Ratio] 28.3 kg/m2 Dr. Alicia Blount Work Phone: 5(923)693-751258 [place] [address] 07-26-2022 13:12-0500 Body temperature 98.4 [degF] Dr. Alicia Blount Work Phone: 6(480)124-277658 [place] [address] 07-26-2022 13:12-0500 Body weight 71.[address] Alicia Blount Work Phone: 8(427)890-971658 [place] [address] 07-26-2022 13:12-0500 Diastolic blood pressure 91 mm[Hg] Dr. Alicia Blount Work Phone: 0(953)336-341558 [place] [address] 07-26-2022 13:12-0500 Heart rate 71 /min Dr. Alicia Blount Work Phone: 3(063)628-719158 [place] [address] 07-26-2022 13:12-0500 Respiratory rate 18 /min Dr. Alicia Blount Work Phone: 4(324)561-743358 [place] [address] 07-26-2022 13:12-0500 SaO2% (BldA) [Mass fraction] 97 % Dr. Alicia Blount Work Phone: 7(419)854-140358 [place] [address] 07-26-2022 13:12-0500 Systolic blood pressure 186 mm[Hg] Dr. Alicia Blount Work Phone: 7(998)491-195358 [place] [address] 05-26-2022 08:29-0400 Body mass index (BMI) [Ratio] 29 kg/m2 Dr. Alicia Blount Work Phone: 2(110)193-044258 [place] [address] 05-26-2022 08:29-0400 Body temperature 97.6 [degF] Dr. Alicia Blount Work Phone: 3(306)069-511758 [place] [address] 05-26-2022 08:29-0400 Body weight 72.[address] Alicia Blount Work Phone: 7(853)254-905558 [place] [address] 05-26-2022 08:29-0400 Diastolic blood pressure 84 mm[Hg] Dr. Alicia Blount Work Phone: [facility] 05-26-2022 08:29-0400 Heart rate 75 /min Dr. Alicia Blount Work Phone: [facility] 05-26-2022 08:29-0400 Respiratory rate 18 /min Dr. Alicia Blount Work Phone: [facility] 05-26-2022 08:29-0400 SaO2% (BldA) [Mass fraction] 94 % Dr. Alicia Blount Work Phone: [facility] 05-26-2022 08:29-0400 Systolic blood pressure 151 mm[Hg] Dr. Alicia Blount Work Phone: [facility] 05-16-2022 10:18-0400 Body temperature 97.2 [degF] Kaci Praisler-Wood AUDIO VISUAL ARTS DIRECTOR.DRIER ATTENDANT Work Phone: [facility] 05-16-2022 10:18-0400 Body weight 71.22 kg Kaci Praisler-Wood AUDIO VISUAL ARTS DIRECTOR.DRIER ATTENDANT Work Phone: [facility] 05-16-2022 10:18-0400 Diastolic blood pressure 76 mm[Hg] Kaci Praisler-Wood AUDIO VISUAL ARTS DIRECTOR.DRIER ATTENDANT Work Phone: [facility] 05-16-2022 10:18-0400 Heart rate 83 /min Kaci Praisler-Wood AUDIO VISUAL ARTS DIRECTOR.DRIER ATTENDANT Work Phone: [facility] 05-16-2022 10:18-0400 Respiratory rate 18 /min Kaci Praisler-Wood AUDIO VISUAL ARTS DIRECTOR.DRIER ATTENDANT Work Phone: [facility] 05-16-2022 10:18-0400 SaO2% (BldA) [Mass fraction] 96 % Kaci Praisler-Wood AUDIO VISUAL ARTS DIRECTOR.DRIER ATTENDANT Work Phone: [facility] 05-16-2022 10:18-0400 Systolic blood pressure 140 mm[Hg] Kaci Praisler-Wood AUDIO VISUAL ARTS DIRECTOR.DRIER ATTENDANT Work Phone: [facility] 05-02-2022 11:51-0400 Body weight 71.67 kg Clarence Berry AUDIO VISUAL ARTS DIRECTOR.DRUPAL PHP DEVELOPER Work Phone: [facility] 05-02-2022 11:51-0400 Diastolic blood pressure 82 mm[Hg] Clarence Berry AUDIO VISUAL ARTS DIRECTOR.DRUPAL PHP DEVELOPER Work Phone: [facility] 05-02-2022 11:51-0400 Heart rate 88 /min Clarence Berry AUDIO VISUAL ARTS DIRECTOR.DRUPAL PHP DEVELOPER Work Phone: [facility] 05-02-2022 11:51-0400 Respiratory rate 16 /min Clarence Berry AUDIO VISUAL ARTS DIRECTOR.DRUPAL PHP DEVELOPER Work Phone: [facility] 05-02-2022 11:51-0400 SaO2% (BldA) [Mass fraction] 96 % Clarence Berry AUDIO VISUAL ARTS DIRECTOR.DRUPAL PHP DEVELOPER Work Phone: [facility] 05-02-2022 11:51-0400 Systolic blood pressure 132 mm[Hg] Clarence Berry AUDIO VISUAL ARTS DIRECTOR.DRUPAL PHP DEVELOPER Work Phone: [facility] 04-25-2022 11:16-0400 Body mass index (BMI) [Ratio] 28.7 kg/m2 Dr. Alicia Blount Work Phone: [facility] Work Phone: 04-25-2022 11:16-0400 Body temperature 97.4 [degF] Dr. Alicia Blount Work Phone: [facility] Work Phone: 04-25-2022 11:16-0400 Body weight 71.[address] Alicia Blount Work Phone: [facility] Work Phone: 04-25-2022 11:16-0400 Diastolic blood pressure 82 mm[Hg] Dr. Alicia Blount Work Phone: [facility] Work Phone: 04-25-2022 11:16-0400 Heart rate 80 /min Dr. Alicia Blount Work Phone: [facility] Work Phone: 04-25-2022 11:16-0400 Respiratory rate 16 /min Dr. Alicia Blount Work Phone: [facility] Work Phone: 04-25-2022 11:16-0400 SaO2% (BldA) [Mass fraction] 97 % Dr. Alicia Blount Work Phone: [facility] Work Phone: 04-25-2022 11:16-0400 Systolic blood pressure 138 mm[Hg] Dr. Alicia Blount Work Phone: [facility] Work Phone: 03-31-2022 14:17-0400 Body weight 70.31 kg Alicia Blount MD Work Phone: [facility] 03-31-2022 14:17-0400 Diastolic blood pressure 78 mm[Hg] Alicia Blount MD Work Phone: [facility] 03-31-2022 14:17-0400 Heart rate 76 /min Alicia Blount MD Work Phone: [facility] 03-31-2022 14:17-0400 SaO2% (BldA) [Mass fraction] 95 % Alicia Blount MD Work Phone: [facility] 03-31-2022 14:17-0400 Systolic blood pressure 128 mm[Hg] Alicia Blount MD Work Phone: [facility] 01-30-2022 12:25-0400 Body temperature 98.29 [degF] Anu Pablo PA-C Work Phone: [facility] 01-30-2022 12:25-0400 Body weight 70.67 kg Anu JAQUEZ-C Work Phone: [facility] 01-30-2022 12:25-0400 Diastolic blood pressure 80 mm[Hg] Anu Bogner PA-C Work Phone: [facility] 01-30-2022 12:25-0400 Heart rate 80 /min Anu Bogner PA-C Work Phone: [facility] 01-30-2022 12:25-0400 Respiratory rate 16 /min Anu Bogner PA-C Work Phone: [facility] 01-30-2022 12:25-0400 SaO2% (BldA) [Mass fraction] 97 % Anu Bogner PA-C Work Phone: [facility] 01-30-2022 12:25-0400 Systolic blood pressure 122 mm[Hg] Anu Bogner PA-C Work Phone: [facility] 12-21-2021 09:00-0400 Diastolic blood pressure 82 mm[Hg] Erik Underwood MD Work Phone: [facility] 12-21-2021 09:00-0400 Heart rate 62 /min Erik Underwood MD Work Phone: [facility] 12-21-2021 09:00-0400 Respiratory rate 14 /min Erik Underwood MD Work Phone: [facility] 12-21-2021 09:00-0400 SaO2% (BldA) [Mass fraction] 96 % Erik Underwood MD Work Phone: [facility] 12-21-2021 09:00-0400 Systolic blood pressure 160 mm[Hg] Erik Underwood MD Work Phone: [facility] 12-21-2021 08:22-0400 Body temperature 97.7 [degF] Erik Underwood MD Work Phone: [facility] 12-21-2021 07:07-0400 Body height 157.5 cm Erik Underwood MD Work Phone: [facility] 12-21-2021 07:07-0400 Body weight 67.59 kg Erik Underwood MD Work Phone: [facility] 11-22-2021 13:09-0400 Body weight 67.59 kg Alicia Blount MD Work Phone: [facility] 11-22-2021 13:09-0400 Diastolic blood pressure 62 mm[Hg] Alicia Blount MD Work Phone: [facility] 11-22-2021 13:09-0400 Heart rate 82 /min Alicia Blount MD Work Phone: [facility] 11-22-2021 13:09-0400 Systolic blood pressure 122 mm[Hg] Alicia Blount MD Work Phone: [facility] Encounters Encounter Date Encounter Type Care Provider Facility Start: 04-02-2025 Encounter for other preprocedural examination [facility] Start: 04-01-2025 End: 04-01-2025 ambulatory Liliya Radha Facility:[facility] Start: 03-26-2025 End: 03-26-2025 ambulatory Selam Shepard MA [facility] Start: 03-26-2025 End: 03-26-2025 Patient encounter procedure Selam Shepard [facility] Comment on above: Population Health Na vigation Outreach ([place] ) Start: 03-19-2025 End: 03-19-2025 ambulatory Hernando Pandya Facility:[facility] Start: 02-26-2025 End: 02-26-2025 ambulatory Hernandojaswinder Pandya [facility] Start: 02-23-2025 End: 02-23-2025 ambulatory Selam Shepard MA [facility] Start: 02-23-2025 End: 02-23-2025 Patient encounter procedure Selam Shepard MA [facility] Comment on above: Population Health Na vigation Outreach ([place] ) Start: 02-19-2025 End: 02-19-2025 ambulatory Alicia Rhonda Hyattampshanika Facility:[facility] Start: 02-17-2025 End: 02-17-2025 ambulatory Hernando Baddour Facility:[facility] Start: 02-04-2025 End: 02-04-2025 ambulatory Alicia D Talampshanika Facility:[facility] Start: 01-28-[address] Facility:[facility] Start: 01-22-2025 End: 01-22-2025 ambulatory Selam Shepard [facility] Start: 01-22-2025 End: 01-22-2025 Patient encounter procedure Selam Shepard MA [facility] Comment on above: Population Health Na vigation Outreach ([place] ) Start: 01-15-2025 End: 01-15-2025 ambulatory Hernando Pandya Facility:[facility] Start: 01-01-2025 End: 01-01-2025 ambulatory Michelle Zuleta Facility:[facility] Start: 12-23-2024 End: 12-23-2024 ambulatory Selam Shepard MA [facility] Start: 12-23-2024 End: 12-23-2024 Patient encounter procedure Selam Shepard MA [facility] Comment on above: Population Health Na vigation Outreach ([place] ) Start: 12-18-2024 End: 12-19-2024 Telephone encounter [...] Start: 12-15-2024 End: 12-15-[address] Facility:[facility] Start: 12-12-2024 End: 12-12-[address] Facility:[facility] Start: 12-10-2024 End: 12-11-2024 Telephone encounter Alicia Blount MD Work Phone: [facility] [place] Comment on above: Delay of care- OT WC [facility] Start: 12-08-2024 End: 12-08-2024 ambulatory Aniket Guo Facility:[facility] Start: 11-20-2024 End: 11-20-2024 ambulatory Selam Shepard [facility] Start: 11-20-2024 End: 11-20-2024 Patient encounter procedure Selam Shepard MA [facility] Comment on above: Population [facility] Start: 11-19-2024 End: 11-20-2024 Telephone encounter Alicia Blount MD Work Phone: [facility] [place] Comment on above: Occupatioal Therapy Updated Plan of Care Start: 11-12-2024 ambulatory Alicia D Talampas Facilit y:[facility] Start: 11-11-2024 End: 11-11-2024 ambulatory Alicia D Talampas Facility:[facility] Start: 11-03-2024 End: 11-03-2024 ambulatory Alicia D Talampas Facility:[facility] Start: 11-03-2024 End: 11-03-2024 ambulatory Alicia D Talampas Facility:[facility] Start: 10-27-2024 End: 10-29-2024 Telephone encounter Alicia Blount MD Work Phone: [facility] [place] Comment on above: [facility] HH OT updated PO C Medication Problem Start: 10-25-2024 End: 10-25-2024 ambulatory Gabrielle Murdock RN NURSE ELECTRONICS RECYCLER Start: 10-25-2024 End: 10-25-2024 Follow-up encounter Gabrielle Murdock RN NURSE ELECTRONICS RECYCLER Comment on above: Follow Up Start: 10-25-2024 End: 12-24-2024 Telephone encounter Ligia Schilling DO Work Phone: [facility] Start: 10-24-2024 End: 10-27-2024 Telephone encounter Alicia Blount MD Work Phone: [facility] [place] Comment on above: Patient Update Start: 10-23-2024 [...] and management of inpatient Alicia D Talampas Facility:[facility] Start: 09-05-2024 ambulatory Alicia D Talampas Facilit y:[facility] Start: 09-05-2024 ambulatory Alicia D Talampas Facilit y:[facility] Start: 08-29-2024 ambulatory Alicia D Talampas Facilit y:[facility] Start: 08-29-2024 End: 09-21-2024 Evaluation and management of inpatient Alicia D Talampas Facility:[facility] Start: 08-27-2024 ambulatory Alicia D Talampas Facilit y:[facility] Start: 08-25-2024 ambulatory Alicia D Talampas Facilit y:[facility] Start: 08-25-2024 ambulatory David Vila [facility] Start: 08-25-2024 End: 08-29-2024 Evaluation and management of inpatient Daya Onofre Facility:[facility] Start: 08-13-2024 End: 08-13-2024 ambulatory Alicia D Talampas Facility:[facility] Start: 08-12-2024 End: 08-12-2024 ambulatory Alicia D Talampas Facility:[facility] Start: 08-07-2024 End: 08-08-2024 ambulatory Alicia D Talampas Facility:[facility] Start: 08-07-2024 End: 08-25-2024 Evaluation and management of inpatient Alicia D Talampas Facility:[facility] Start: 08-03-2024 ambulatory Kat L White Facility :[facility] Start: 08-03-2024 End: 08-07-2024 Evaluation and management of inpatient Kat L White Facility:[facility] Start: 08-03-2024 End: 08-03-2024 ambulatory Alicia D Talampas Facility:[facility] Start: 08-01-2024 End: 08-01-2024 Patient Outreach Ellen Gonzalez RN Work Phone: Historical Interpreter Management Comment on above: Weekly phone contact (Recurring) for Transitional Care Management Start: 07-15-2024 End: 07-15-2024 ambulatory ALICIA D TALAMPAS Facility:[facility] Start: 07-15-2024 End: 07-15-2024 Transitional care manage srvc 7 day discharge Alicia Blount MD Work Phone: [facility] [place] Comment on above: Syncope, unspecified syncope type (Primary Dx); Diabetes 1.5, managed as type 1 (HCC); Recurrent bronchospasm; Bronchiectasis without complication (HCC); Chronic cough Start: 07-14-2024 End: 07-14-2024 Patient Outreach Ellen Gonzalez RN Work Phone: Historical Interpreter Management Comment on above: Initial phone contac t for Transitional Care Management Start: 07-11-2024 ambulatory Alicia D Talampas Facilit y:[facility] Start: 07-10-2024 ambulatory Alicia D Talampas Facilit y:[facility] Start: 07-10-2024 End: 07-12-2024 Evaluation and management of inpatient Alicia D Talampas Facility:[facility] Start: 07-01-2024 End: 07-01-2024 ambulatory Alicia D Talampas Facility:[facility] Start: 06-23-2024 End: 06-23-2024 ambulatory Alicia D Talampas Facility:[facility] Start: 06-16-2024 End: 06-16-2024 ambulatory Alicia D Talampas Facility:[facility] Start: 05-29-2024 End: 05-29-2024 ambulatory Alicia D Talampas Facility:[facility] Start: 05-27-2024 End: 05-27-2024 Office outpatient visit 25 minutes Alicia Blount MD Work Phone: [facility] [place] Comment on above: Anxiety (Primary Dx) ; Essential hypertension; Diabetes 1.5, managed as type 1 (HCC); Stress incontinence; Viral syndrome; Right leg swelling Start: 05-27-2024 End: 05-27-2024 ambulatory ALICIA Rhonda HYATTDEEPAK Facility:[facility] Start: 05-26-2024 End: 05-26-2024 ambulatory Alicia Rhonda Blount Facility:[facility] Start: 05-15-2024 End: 05-15-2024 ambulatory Alicia Blount Facility:[facility] Start: 05-01-2024 End: 05-01-2024 ambulatory Alicia Blount MD Work Phone: [facility] [place] Comment on above: Headache Start: 05-01-2024 End: 05-01-2024 Emergency department patient visit Alicia Blount Facility:[facility] Start: 04-28-2024 End: 04-28-2024 Telephone encounter Nurse Card Admin [facility] Work Phone: Cardiology Comment on above: Stress Test Instruct ions for 05/05/24 Start: 04-15-2024 End: 04-15-2024 ambulatory Alicia Rhonda Hyattdeepak Facility:[facility] Start: 04-07-2024 End: 04-07-2024 ambulatory Alicia Rhonda Hyattdeepak Facility:[facility] Start: 03-18-2024 Refill Alicia kirkpatrick MD Work Phone: [facility] Comment on above: Refill Request Start: 03-04-2024 Telephone encounter Nurse Card Admin [facility] Work Phone: Cardiology Comment on above: Stress Test Instruct ions for 03/10/24 Start: 02-17-2024 End: 02-17-2024 Patient encounter procedure Antoinette Agrawal APRN.CNP Work Phone: [facility] Comment on above: SOB (shortness of br eath) (Primary Dx) Start: 02-12-2024 End: 02-12-2024 Subsequent hospital visit by physician Xr [facility] [place] Work Phone: Radiology Comment on above: Acute cough [R05.1] Start: 02-12-2024 End: 02-12-2024 Patient encounter procedure Martin Munguia AUDIO VISUAL ARTS DIRECTOR.DRIER ATTENDANT Work Phone: [facility] Comment on above: Sinobronchitis (Prim jessica Dx); Acute cough Start: 01-31-2024 Telephone encounter Clarence mccormack AUDIO VISUAL ARTS DIRECTOR.DRUPAL PHP DEVELOPER Work Phone: Radiology Comment on above: Orders Start: 01-31-2024 End: 01-31-2024 Office outpatient visit 15 minutes Clarencesanta Berry AUDIO VISUAL ARTS DIRECTOR.DRUPAL PHP DEVELOPER Work Phone: [facility] [place] Comment on above: Diabetes 1.5, manage d as type 1 (HCC) (Primary Dx); Screening for diabetic retinopathy; Chest pain, unspecified type; Lightheadedness; Syncope, unspecified syncope type Start: 01-14-2024 Refill Alicia kirkpatrick MD Work Phone: [facility] [place] Comment on above: Refill Request Start: 12-24-2023 Refill Alicia kirkpatrick MD Work Phone: [facility] [place] Comment on above: Refill Request Start: 12-11-2023 Telephone encounter Simran Susy wells AUDIO VISUAL ARTS DIRECTOR.DRIER ATTENDANT Work Phone: [facility] Comment on above: Results Start: 12-09-2023 End: 12-09-2023 Patient encounter procedure Antoinette Agrawal AUDIO VISUAL ARTS DIRECTOR.DRIER ATTENDANT Work Phone: [facility] Comment on above: Urinary frequency (P rimary Dx) Start: 10-01-2023 End: 10-01-2023 Office outpatient visit 25 minutes Alicia Blount MD Work Phone: [facility] [place] Comment on above: Diabetes mellitus du e [...] Alicia rothman MD Work Phone: [facility] [place] Comment on above: Orders Start: 08-10-2023 End: 08-10-[address] Alicia Blount Work Phone: [facility] Work Phone: Start: 08-10-2023 End: 08-10-[address] Alicia Blount Work Phone: [facility] Work Phone: Start: 07-31-2023 End: 07-31-[address] Alicia Blount Work Phone: [facility] Endocrinology Work Phone: Start: 07-19-2023 Refill Alicia kirkpatrick MD Work Phone: [facility] [place] Comment on above: Refill Request Start: 07-19-2023 End: 07-19-[address] Alicia Blount Work Phone: [facility] Orthopaedic Spec[facility] Work Phone: Start: 07-16-2023 End: 07-16-[address] Alicia Blount Work Phone: [facility] Neurology Work Phone: Start: 07-02-2023 End: 07-02-2023 Office outpatient visit 25 minutes Clarence Berry APRN.DRUPAL PHP DEVELOPER Work Phone: [facility] [place] Comment on above: Debility (Primary Dx ); Diabetes 1.5, managed as type 1 (HCC); Sepsis, due to unspecified organism, unspecified whether acute organ dysfunction present (HCC); Pain in left ta Start: 06-28-2023 Telephone encounter Alicia rothman MD Work Phone: [facility] [place] Comment on above: FYI-PT plan of care Start: 06-27-2023 Telephone encounter Alicia rothman MD Work Phone: [facility] [place] Comment on above: Home Health Update Start: 06-15-2023 End: 06-15-[address] Alicia Blount Work Phone: [facility] Work Phone: Start: 06-15-2023 End: 06-15-[address] Alicia Blount Work Phone: [facility] Work Phone: Start: 06-13-2023 End: 06-13-2023 ambulatory Dr. Alicia Blount Work Phone: [facility] Work Phone: Start: 06-13-2023 End: 06-13-[address] Alicia Blount Work Phone: [facility]-Cat Scan, [facility] Work Phone: Start: 06-13-2023 End: 06-26-2023 Evaluation and management of inpatient Dr. Alicia Blount Work Phone: [facility]-Transitional Care Unit Start: 06-13-2023 Non-patient / Non-visit Dr. Hellen Blount Work Phone: [facility] Inpatient Physicians Work Phone: Start: 06-12-2023 Non-patient / Non-visit Dr. Hellen Blount Work Phone: [facility] Inpatient Physicians Work Phone: Start: 06-11-2023 Non-patient / Non-visit Dr. Hellen Blount Work Phone: [facility] [facility] Physicians Work Phone: Start: 06-10-2023 End: 06-13-2023 Evaluation and management of inpatient Dr. Alicia Blount Work Phone: [facility]-Medical Surgical 3 Work Phone: Start: 06-07-2023 End: 06-07-[address] 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 [K22.70] Start: 06-05-2023 Telephone encounter Alicia rothman MD Work Phone: [facility] [place] Comment on above: Patient Question Start: 06-04-2023 End: 06-04-2023 Patient encounter procedure Radha Balderrama MD Work Phone: General Surgery Comment on above: 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 Start: 05-31-2023 End: 05-31-2023 Office outpatient visit 25 minutes Clarence Berry AUDIO VISUAL ARTS DIRECTOR.DRUPAL PHP DEVELOPER Work Phone: [facility] [place] Comment on above: Bronchiectasis witho ut complication (HCC) (Primary Dx); Carcinoid bronchial adenoma, 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HCC); Encounter for immunization; 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; Essential hypertension; Anxiety Start: 04-08-2023 End: 04-08-2023 Patient encounter procedure Navya Thrasher APRN.DRIER ATTENDANT Work Phone: [facility] Comment on above: Viral URI (Primary D x); Right ear pain Start: 03-28-2023 Telephone encounter Alicia rothman MD Work Phone: [facility] [place] Comment on above: Medication Question Start: 03-07-2023 End: 03-07-[address] Alicia Blount Work Phone: [facility]-Pulmonary Medicine [facility] Work Phone: Start: 03-05-2023 End: 03-05-[address] Alicia Blount Work Phone: [facility] Endocrinology Work Phone: Start: 02-12-2023 Refill Alicia kirkpatrick MD Work Phone: [facility] [place] Comment on above: Opened In Error Start: 02-08-2023 Refill Nusrat Hardeep [facility] Family Medicine [place] Comment on above: Refill Request Start: 01-25-2023 Telephone encounter Alicia rothman MD Work Phone: [facility] [place] Comment on above: Orders Start: 01-01-2023 End: 01-01-2023 Subsequent hospital visit by physician Xr [facility] [place] Work Phone: Radiology Comment on above: Foot pain, right [M7 9.671] Start: 10-17-2022 End: 10-17-2022 Office outpatient visit 25 minutes Clarence Berry APRN.DRUPAL PHP DEVELOPER Work Phone: [facility] [place] Comment on above: Intractable acute po st-traumatic headache (Primary Dx); Contusion of right foot, initial encounter; Contusion of cheondoism region, initial encounter; Injury of coccyx, initial encounter; Facial pain; Jaw pain Start: 10-11-2022 Telephone encounter Alicia rothman MD Work Phone: [facility] [place] Comment on above: Insurance Authorizat ion Start: 10-10-2022 End: 10-10-2022 Subsequent hospital visit by physician Ct [facility] Wstr (I-Stat) Work Phone: Cat Scan Comment on above: Injury of head, subs equent encounter [S09.90XD] Start: 10-10-2022 End: 10-10-2022 Office outpatient visit 25 minutes Clarence Berry AUDIO VISUAL ARTS DIRECTOR.DRUPAL PHP DEVELOPER Work Phone: [facility] [place] Comment on above: Intractable acute po st-traumatic headache (Primary Dx); Contusion of right foot, initial encounter; Contusion of cheondoism region, initial encounter; Injury of coccyx, initial encounter; Facial pain; Jaw pain; Injury of head, subsequent encounter Start: 09-30-2022 End: 09-30-2022 Office outpatient visit 40 minutes Alicia Blount MD Work Phone: [facility] [place] Comment on above: Diabetes mellitus du e to underlying condition with diabetic neuropathy, with long-term current use of insulin (HCC) (Primary Dx); Contusion of right foot, initial encounter; Contusion of cheondoism region, initial encounter; Injury of coccyx, initial encounter; Facial pain; Jaw pain; Anxiety; Vitamin D deficiency Start: 08-21-2022 Telephone encounter Alicia rothman MD Work Phone: [facility] [place] Comment on above: Results Start: 08-18-2022 Non-patient / Non-visit Dr. Hellen Blount Work Phone: [facility] Start: 08-18-2022 End: 08-18-[address] Alicia Blount Work Phone: [facility] Work Phone: Start: 08-18-2022 End: 08-18-[address] Alicia Blount Work Phone: [facility]-Cardiovascular Services Start: 08-15-2022 Non-patient / Non-visit Dr. Hellen Blount Work Phone: [facility] Start: 08-15-2022 End: 08-15-[address] Alicia Blount Work Phone: [facility] Work Phone: Start: 08-15-2022 End: 08-15-[address] Alicia Blount Work Phone: [facility]-Pulmonary Services/Neurology Start: 08-11-2022 Non-patient / Non-visit Dr. Hellen Blount Work Phone: [facility] Start: 08-09-2022 End: 08-09-[address] Alicia Blount Work Phone: [facility] Work Phone: Start: 08-09-2022 End: 08-09-[address] Alicia Blount Work Phone: [facility]-Pulmonary Services/Neurology Start: 08-02-2022 Telephone encounter Alicia rothman MD Work Phone: [facility] [place] Comment on above: Orders Start: 07-26-2022 End: 07-26-[address] [facility]ount [facility] Start: 06-23-2022 Telephone encounter Alicia rothman MD Work Phone: [address] [place] [address] Comment on above: Refill Request Start: 06-16-2022 Telephone encounter Alicia rothman MD Work Phone: [facility] [place] Comment on above: Faxed ECHO results Refill Request Start: 05-26-2022 Telephone encounter Alicia rothman MD Work Phone: [facility] [place] Comment on above: Patient Question Start: 05-26-2022 End: 05-26-[address] Alicia Blount Work Phone: [facility] Endocrinology Start: 05-17-2022 Telephone encounter Lyly sanford PA-C Work Phone: [facility] Comment on above: Results Start: 05-16-2022 End: 05-16-2022 Patient encounter procedure Kaci Savage APRN.DRIER ATTENDANT Work Phone: [facility] Comment on above: Suspected COVID-19 v irus infection (Primary Dx) Start: 05-15-2022 Telephone encounter Alicia rothman MD Work Phone: [facility] [place] Comment on above: Flu Like Symptoms Start: 05-02-2022 End: 05-02-2022 Patient encounter procedure Clarence Berry APRN.DRUPAL PHP DEVELOPER Work Phone: [facility] [place] Comment on above: Osteoporosis, unspec ified osteoporosis type, unspecified pathological fracture presence (Primary Dx); Anxiety; Encounter for immunization Start: 04-25-2022 End: 04-25-[address] Alicia Blount [facility] Start: 04-18-2022 Telephone encounter Alicia rothman MD Work Phone: [facility] [place] Comment on above: Results (Bone Densit y/) Start: 04-03-2022 End: 04-03-2022 Subsequent hospital visit by physician Bone Density [facility] Work Phone: Radiology Comment on above: Asymptomatic postmen opausal status [Z78.0] Start: 03-31-2022 End: 03-31-2022 Office outpatient visit 25 minutes Alicia Blount MD Work Phone: [facility] [place] Comment on above: Vitamin D deficiency (Primary Dx); Chronic cough; Vitamin B6 deficiency; Essential hypertension; Diabetes mellitus due to underlying condition with diabetic neuropathy, with long-term current use of insulin (HCC); Hyperlipidemia, unspecified hyperlipidemia type; Left lateral epicondylitis; Radial styloid tenosynovitis of left hand; Asymptomatic postmenopausal status Start: 01-30-2022 End: 01-30-2022 Subsequent hospital visit by physician Xr [facility] Work Phone: Radiology Comment on above: Ankle injury, initia l encounter [S99.919A] Start: 01-30-2022 End: 01-30-2022 Office outpatient visit 15 minutes Anu Pablo PA-C Work Phone: [facility] Comment on above: Ankle injury, initia l encounter (Primary Dx) Start: 01-13-2022 Telephone encounter Alicia rothman MD Work Phone: [facility] [place] Comment on above: Patient Question Start: 01-07-2022 Refill Alicia kirkpatrick MD Work Phone: [facility] [place] Comment on above: Refill Request Start: 01-02-2022 Refill Alicia kirkpatrick MD Work Phone: [facility] [place] Comment on above: Refill Request Start: 12-21-2021 End: 12-21-2021 Subsequent hospital visit by physician Erik Underwood MD Work Phone: [facility] Endoscopy Comment on above: History of Gonzales's esophagus [Z87.19] Start: 12-12-2021 Telephone encounter Alicia rothman MD Work Phone: [facility] [place] Comment on above: Patient Question (EG D, medication questions) Start: 12-01-2021 Refill Alicia kirkpatrick MD Work Phone: [facility] [place] Comment on above: Refill Request Start: 11-22-2021 [...] 06-03-2021 Subsequent hospital visit by physician Merrill [facility] [place] Work Phone: Radiology Comment on above: Suspected 2019 novel coronavirus infection [Z20.822] Procedures Date Procedure Procedure Detail Performing Clinician Start: 02-12-2024 Radiologic exam chest 2 views Martin santana AUDIO VISUAL ARTS DIRECTOR.DRIER ATTENDANT Work Phone: Start: 01-31-2024 Ecg routine ecg w/least 12 lds i&r only Clarence Berry AUDIO VISUAL ARTS DIRECTOR.DRUPAL PHP DEVELOPER Work Phone: Start: 12-09-2023 Urnls dip stick/tablet rgnt auto w/o microscopy Antoinette Agrawal APRN.DRIER ATTENDANT Work Phone: Start: 08-10-2023 MRI of cervical [...] cleared fda spec home use Sabino Rivera Ottawa DO Work Phone: Start: 06-06-2023 Esophagogastroduodenoscopy transoral diagnostic Radha Balderrama MD Work Phone: Start: 06-06-2023 Gluc bld gluc mntr dev cleared fda spec home use Sabino Rivera Leslie DO Work Phone: Start: 05-31-2023 INFLUENZA VACCINE, PRSV FREE, AGE 65+ YR, HIGH DOSE, QUADRIVALENT (FLUZONE HIGH-DOSE) Clarence Berry APRN.DRUPAL PHP DEVELOPER Work Phone: Start: 01-01-2023 Radex foot complete minimum 3 views Betsy Cheng MD Work Phone: Start: 10-10-2022 Ct head/brain w/o contrast material Baldev Berry AUDIO VISUAL ARTS DIRECTOR.DRUPAL PHP DEVELOPER Work Phone: Start: 05-02-2022 INFLUENZA SEASONAL QUADRIVALENT HIGH DOSE AGE 65+ Clarence Berry AUDIO VISUAL ARTS DIRECTOR.DRUPAL PHP DEVELOPER Work Phone: Start: 04-03-2022 Dxa bone density study 1/> sites axial skel Alicia Blount MD Work Phone: Start: 01-30-2022 Radex ankle complete minimum 3 views Anu ALEJANDROC Work Phone: Start: 12-21-2021 Gluc bld gluc mntr dev cleared fda spec home use Pippa Umina AA Work Phone: Start: 12-21-2021 Esophagoscp rig transoral hypopharynx crv tray Limon AUDIO VISUAL ARTS DIRECTOR.DRIER ATTENDANT Work Phone: Start: 12-21-2021 Gluc bld gluc [...] EDT Office Visit [facility] [place] [address] [place] [address] Alicia Blount MD [address] [place] [address] 4 month follow up [facility] [place] Comment on above: 4 month follow up Start: 04-13-2025 Influenza vaccination Influenza Vacc ine (#1) [facility] Start: 04-09-2025 ambulatory Facility:[facility] Start: 01-30-2025 Hepatitis B screening Urine Al bumin:Creatinine Ratio [facility] Start: 01-30-2025 Hepatitis B surface antibody level LDL Cholesterol [facility] Start: 01-26-2025 End: 01-26-2025 Patient encounter procedure 01/26/2025 4:40 PM EDT Office Visit [facility] [place] [address] [facility] [place] [place] [address] Alicia Blount MD [address] [place] [address] 4 month follow up [facility] [place] Comment on above: 4 month follow up Start: 10-27-2024 End: 10-27-2024 Patient encounter procedure 10/27/2024 10:00 AM EDT Office Visit [facility] [place] [address] [facility] [place] [place] [address] Clarence Berry APRN.DRUPAL PHP DEVELOPER [address] [place] [address] 4 mo follow up [facility] [place] Comment on above: 4 mo follow up Start: 10-03-2024 End: 10-03-2024 Patient encounter procedure 10/03/2024 3:00 PM EST Office Visit [facility] [place] [address] [facility] [place] [address] Alicia Blount MD [address] [place] [address] 4 month follow up [facility] [place] Comment on above: 4 month follow up Start: 09-28-2024 Hepatitis B surface antibody level LDL Cholesterol [facility] Start: 08-13-2024 Advance Directive Discussion Advance Directive Discussion [facility] Start: 07-15-2024 End: 07-15-2024 Patient encounter procedure 07/15/2024 11:20 AM EST Office Visit [facility] [place] [address] [facility] [place] [address] Alicia Blount MD [address] [place] [address] [facility] 07/12/24 for Syncope (Ok per LDT) [facility] [place] Comment on above: [facility] 07/12/24 f or Syncope (Ok per LDT) Start: 05-27-2024 End: 05-27-2024 Patient encounter procedure 05/27/2024 10:00 AM EDT Office Visit [facility] [place] [address] [place] [address] Alicia Blount MD [address] [place] [address] 4 mo follow up [facility] [place] Comment on above: 4 mo follow up Start: 05-05-2024 End: 05-05-2024 Patient encounter procedure 05/05/2024 11:20 AM EDT Office Visit Cardiology [address] [place] [address] Wstr, Nurse Card Admin [facility] [address] [place] [address] Chest pain, unspecified type [R07.9] Cardiology Comment on above: Chest pain, unspecif ied type [R07.9] Start: 05-02-2024 Hemoglobin A1c measurement HbA1C [facility] Start: 04-13-2024 Covid-19 Vaccine ( season) Covid-19 Vaccine ( season) [facility] Start: 04-13-2024 Covid-19 Vaccine ( season) Covid-19 Vaccine ( season) [facility] Start: 04-13-2024 Influenza vaccination Influenza Vacc ine (#1) [facility] Start: 04-03-2024 Screening for osteoporosis Bone Density Screening [facility] Start: 03-10-2024 End: 03-10-2024 Patient encounter procedure 03/10/2024 11:20 AM EDT Office Visit Cardiology [address] [place] [address] Wstr, Nurse Card Admin [facility] [address] [place] [address] Chest pain, unspecified type [R07.9] Cardiology Comment on above: Chest pain, unspecif ied type [R07.9] Start: 03-07-2024 End: 03-07-2024 Patient encounter procedure 03/07/2024 9:00 AM EDT Office Visit Vasculary Surgery [address] [place] [address] S [facility]OTID [facility]ER[facility] Status: Needs Scheduling Vasculary Surgery Comment on above: S CAROTID ARTERIES [facility] Status: Needs Scheduling Start: 01-31-2024 End: 01-31-2024 Patient encounter procedure 01/31/2024 10:00 AM EDT Office Visit [facility] [place] [address] [facility] [place] [place] [address] Clarence Berry APRN.DRUPAL PHP DEVELOPER [address] [place] [address] 4 mo follow up [facility] [place] Comment on above: 4 mo follow up Start: 01-30-2024 End: 04-30-2024 25-hydroxyvitamin D3 [Mass/volume] in Serum or Plasma VITAMIN D 25 HYDROXY Lab Routine Vitamin D deficiency Encounter for long-term current use of medication Expected: 01/30/2024 (Approximate), Expires: 04/30/2024 [facility] Work Phone: Comment on above: Expected: 01/30/2024 (Approximate), Expires: 04/30/2024 Start: 01-30-2024 3 comp foot exam completed DIABETIC FOOT EXAM [facility] Start: 01-30-2024 ANNUAL PCP TEAM HEEL SANDER RUBBER ALEXANDER DISEASE VISIT ANNUAL PCP TEAM CHRONIC DISEASE VISIT [facility] Start: 01-30-2024 End: 04-30-2024 CBC panel - Blood by Automated count CBC Lab Routine 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, with long-term current use of insulin (HCC) Essential hypertension Encounter for long-term current use of medication Expected: 01/30/2024 (Approximate), Expires: 04/30/2024 [facility] Work Phone: Comment on above: Expected: 01/30/2024 (Approximate), Expires: 04/30/2024 Start: 01-30-2024 End: 04-30-2024 Cobalamin (Vitamin B12) [Mass/volume] in Serum or Plasma VITAMIN B12 BLOOD Lab Routine Encounter for long-term current use of medication Expected: 01/30/2024 (Approximate), Expires: 04/30/2024 [facility] Work Phone: Comment on above: Expected: 01/30/2024 (Approximate), Expires: 04/30/2024 Start: 01-30-2024 End: 04-30-2024 Comprehensive metabolic 2000 panel - Serum or Plasma COMP METABOLIC PANEL Lab Routine Essential hypertension Encounter for long-term current use of medication Expected: 01/30/2024 (Approximate), Expires: 04/30/2024 [facility] Work Phone: Comment on above: Expected: 01/30/2024 (Approximate), Expires: 04/30/2024 Start: 01-30-2024 Diabetic foot examination Diabetic F oot Exam [facility] Start: 01-30-2024 End: 04-30-2024 Hemoglobin A1c in Blood HGB A1C Lab Routine 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, with long-term current use of insulin (HCC) Encounter for long-term current use of medication Expected: 01/30/2024 (Approximate), Expires: 04/30/2024 [facility] Work Phone: Comment on above: Expected: 01/30/2024 (Approximate), Expires: 04/30/2024 Start: 01-30-2024 End: 04-30-2024 Lipid 1996 panel - Serum or Plasma LIPID PANEL BASIC Lab Routine 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, with long-term current use of insulin (HCC) Encounter for long-term current use of medication Expected: 01/30/2024 (Approximate), Expires: 04/30/2024 [facility] Work Phone: Comment on above: Expected: 01/30/2024 (Approximate), Expires: 04/30/2024 Start: 01-30-2024 End: 04-30-2024 Pyridoxine [Mass/volume] in Serum or Plasma VITAMIN B6/PYRIDOXIN Lab Routine Vitamin B6 deficiency Encounter for long-term current use of medication Expected: 01/30/2024 (Approximate), Expires: 04/30/2024 [facility] Work Phone: Comment on above: Expected: 01/30/2024 (Approximate), Expires: 04/30/2024 Start: 01-27-2024 Hepatitis B surface antibody level LDL CHOLESTEROL [facility] Start: 12-27-2023 Hemoglobin A1c measurement HbA1C [facility] Start: 11-27-2023 Hepb vaccine adult 3 dose schedule for im use HEP B VACCINE, 3-DOSE, AGE 20+ YR (ENGERIX-B, RECOMBIVAX HB) Immunization/Injection Routine Encounter for immunization Expected: 11/27/2023 [facility] Work Phone: Comment on above: Expected: 11/27/2023 Start: 10-18-2023 BP CONTROLLED (<130/80) BP CONTROLLE D (<130/80) [facility] Start: 10-05-2023 Glaucoma screening Dilated Retinal E xam [facility] Start: 10-05-2023 Hepatitis C antibody , confirmatory test DILATED RETINAL EXAM [facility] Start: 10-01-2023 End: 12-31-2023 ALBUMIN/CREAT RATIO RND UR ALBUMIN/CREAT RATIO RND UR Lab Routine 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, 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, managed as type 1 (HCC) Expected: 10/01/2023, Expires: 12/31/2023 [facility] Work Phone: Comment on above: Expected: 10/01/2023 , Expires: 12/31/2023 Start: 09-30-2023 ANNUAL PCP TEAM HEEL SANDER RUBBER ALEXANDER DISEASE VISIT ANNUAL PCP TEAM CHRONIC DISEASE VISIT [facility] Start: 09-28-2023 End: 12-28-2023 25-hydroxyvitamin D3 [Mass/volume] in Serum or Plasma [facility] Work Phone: Comment on above: Expected: 09/28/2023 , Expires: 12/28/2023 Start: 09-28-2023 End: 12-28-2023 Lipid 1996 panel - Serum or Plasma [facility] Work Phone: Comment on above: Expected: 09/28/2023 , Expires: 12/28/2023 Start: 08-13-2023 Advance Directive Discussion Advance Directive Discussion [facility] Start: 08-13-2023 Behavioral Health Screening Behavioral Health Screening [facility] Start: 08-13-2023 Depression Assessment Depression Ass essment [facility] Start: 08-02-2023 Hepatitis B screening URINE AL BUMIN:CREATININE RATIO [facility] Start: 08-02-2023 Hepatitis B surface antibody level LDL CHOLESTEROL [facility] Start: 07-28-2023 Hemoglobin A1c measurement HbA1C [facility] Start: 07-28-2023 Hemoglobin A1c/Hemoglobin.total in Blood HBA1C [facility] Start: 07-19-2023 Patient referral [facility] Work Phone: Start: 07-13-2023 End: 09-12-2023 25-hydroxyvitamin D3 [Mass/volume] in Serum or Plasma VITAMIN D 25 HYDROXY Lab Routine Vitamin D deficiency Expected: 07/13/2023, Expires: 09/12/2023 [facility] Work Phone: Comment on above: Expected: 07/13/2023 , Expires: 09/12/2023 Start: 07-13-2023 End: 09-12-2023 ALBUMIN/CREAT RATIO RND UR ALBUMIN/CREAT RATIO RND UR Lab Routine 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, with long-term current use of insulin (HCC) Expected: 07/13/2023, Expires: 09/12/2023 [facility] Work Phone: Comment on above: Expected: 07/13/2023 , Expires: 09/12/2023 Start: 07-13-2023 End: 09-12-2023 CBC panel - Blood by Automated count CBC Lab Routine Essential hypertension Expected: 07/13/2023, Expires: 09/12/2023 [facility] Work Phone: Comment on above: Expected: 07/13/2023 , Expires: 09/12/2023 Start: 07-13-2023 End: 09-12-2023 Comprehensive metabolic 2000 panel - Serum or Plasma COMP METABOLIC PANEL Lab Routine Essential hypertension 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, with long-term current use of insulin (HCC) Expected: 07/13/2023, Expires: 09/12/2023 [facility] Work Phone: Comment on above: Expected: 07/13/2023 , Expires: 09/12/2023 Start: 07-13-2023 End: 09-12-2023 Hemoglobin A1c in Blood HGB A1C Lab Routine 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, with long-term current use of insulin (HCC) Expected: 07/13/2023, Expires: 09/12/2023 [facility] Work Phone: Comment on above: Expected: 07/13/2023 , Expires: 09/12/2023 Start: 07-13-2023 End: 09-12-2023 Lipid 1996 panel - Serum or Plasma LIPID PANEL BASIC Lab Routine Hyperlipidemia, unspecified hyperlipidemia type Expected: 07/13/2023, Expires: 09/12/2023 [facility] Work Phone: Comment on above: Expected: 07/13/2023 , Expires: 09/12/2023 Start: 07-13-2023 End: 09-12-2023 Pyridoxine [Mass/volume] in Serum or Plasma VITAMIN B6/PYRIDOXIN Lab Routine Vitamin B6 deficiency Expected: 07/13/2023, Expires: 09/12/2023 [facility] Work Phone: Comment on above: Expected: 07/13/2023 , Expires: 09/12/2023 Start: 07-12-2023 Blood chemistry [facility] Start: 07-05-2023 Blood chemistry [facility] Start: 07-01-2023 Hepb vaccine adult 3 dose schedule for im use HEP B VACCINE, 3-DOSE, AGE 20+ YR (ENGERIX-B, RECOMBIVAX HB) Immunization/Injection Routine Encounter for immunization Expected: 07/01/2023 [facility] Work Phone: Comment on above: Expected: 07/01/2023 Start: 06-28-2023 Blood chemistry [facility] Start: 06-26-2023 Patient discharge [facility] Start: 06-25-2023 Development of care plan [facility] Start: 06-25-2023 [facility] Start: 06-22-2023 Referral to service [facility] Start: 06-21-2023 Blood chemistry [facility] Start: 06-14-2023 [facility] Start: 06-14-2023 Speech therapy assessment [facility] Start: 06-14-2023 Development of care plan [facility] Start: 06-14-2023 Developing a treatme nt plan [facility] Start: 06-14-2023 Application of device [facility] Start: 06-13-2023 Admission procedure [facility] Start: 06-13-2023 Measuring intake and output [facility] Start: 06-13-2023 Patient referral to dietitian [facility] Start: 06-13-2023 Referral to occupati onal therapist [facility] Start: 06-13-2023 Referral to service [facility] Start: 06-13-[address] [facility] Start: 06-13-2023 Vital signs measurements [facility] Start: 06-13-2023 [facility] Start: 06-13-2023 Patient discharge [facility] Start: 06-11-2023 Blood chemistry [facility] Start: 06-10-2023 Following clinical pathway protocol [facility] Start: 06-10-2023 Assessment of risk o f venous thromboembolism [facility] Start: 06-10-2023 Cardiac monitoring [facility] Start: 06-10-2023 Care regimes management [facility] Start: 06-10-2023 Catheterization of vein [facility] Start: 06-10-2023 Continuous pulse oximetry [facility] Start: 06-10-2023 Inhalation therapy procedure [facility] Start: 06-10-2023 Insertion of cathete r into peripheral vein [facility] Start: 06-10-2023 Notification of physician [facility] Start: 06-10-2023 Oxygen therapy [facility] Start: 06-10-2023 Providing care accor ding to standard [facility] Start: 06-10-2023 Referral to occupati onal therapist [facility] Start: 06-10-2023 Referral to service [facility] Start: 06-10-[address] [facility] Start: 06-10-2023 Admission procedure [facility] Start: 06-10-2023 Blood culture [facility] Start: 06-10-2023 End: 06-10-2023 [facility] Start: 06-10-2023 Bacteria identified in Blood by Culture Blood Culture [facility] Start: 06-10-2023 Bacteria identified in Urine by Culture Urine Culture [facility] Start: 06-10-2023 Patient referral to dietitian [facility] Start: 04-13-2023 Covid-19 Vaccine () Covid-19 Vaccine () [facility] Start: 04-13-2023 Influenza vaccination INFLUENZA (#1) [facility] Start: 03-31-2023 ANNUAL PCP TEAM HEEL SANDER RUBBER ALEXANDER DISEASE VISIT ANNUAL PCP TEAM CHRONIC DISEASE VISIT [facility] Start: 03-31-2023 BP CONTROLLED (<130/80) BP CONTROLLE D (<130/80) [facility] Start: 03-31-2023 Urine microalbumin profile DTAP,TDAP,TD (2 - Td or Tdap) [facility] Comment on above: Postponed from 03/22 (Declined at this time) Start: 01-31-2023 Hemoglobin A1c/Hemoglobin.total in Blood HBA1C [facility] Start: 01-25-2023 End: 03-27-2023 25-hydroxyvitamin D3 [Mass/volume] in Serum or Plasma VITAMIN D 25 HYDROXY Lab Routine Vitamin D deficiency Expected: 01/25/2023, Expires: 03/27/2023 [facility] Work Phone: Comment on above: Expected: 01/25/2023 , Expires: 03/27/2023 Start: 01-25-2023 End: 03-27-2023 ALBUMIN/CREAT RATIO RND UR ALBUMIN/CREAT RATIO RND UR Lab Routine 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, with long-term current use of insulin (HCC) Expected: 01/25/2023, Expires: 03/27/2023 [facility] Work Phone: Comment on above: Expected: 01/25/2023 , Expires: 03/27/2023 Start: 01-25-2023 End: 03-27-2023 CBC W Auto Differential panel - Blood CBC + DIFF Lab Routine Vitamin D deficiency Expected: 01/25/2023, Expires: 03/27/2023 [facility] Work Phone: Comment on above: Expected: 01/25/2023 , Expires: 03/27/2023 Start: 01-25-2023 End: 03-27-2023 Comprehensive metabolic 2000 panel - Serum or Plasma COMP METABOLIC PANEL Lab Routine 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, with long-term current use of insulin (HCC) Expected: 01/25/2023, Expires: 03/27/2023 [facility] Work Phone: Comment on above: Expected: 01/25/2023 , Expires: 03/27/2023 Start: 01-25-2023 End: 03-27-2023 Hemoglobin A1c in Blood HGB A1C Lab Routine 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, with long-term current use of insulin (HCC) Expected: 01/25/2023, Expires: 03/27/2023 [facility] Work Phone: Comment on above: Expected: 01/25/2023 , Expires: 03/27/2023 Start: 01-25-2023 End: 03-27-2023 Lipid 1996 panel - Serum or Plasma LIPID PANEL BASIC Lab Routine Hyperlipidemia, unspecified hyperlipidemia type Expected: 01/25/2023, Expires: 03/27/2023 [facility] Work Phone: Comment on above: Expected: 01/25/2023 , Expires: 03/27/2023 Start: 01-25-2023 End: 03-27-2023 Pyridoxine [Mass/volume] in Serum or Plasma VITAMIN B6/PYRIDOXIN Lab Routine Vitamin D deficiency Expected: 01/25/2023, Expires: 03/27/2023 [facility] Work Phone: Comment on above: Expected: 01/25/2023 , Expires: 03/27/2023 Start: 12-27-2022 BP CONTROLLED (<130/80) BP CONTROLLE D (<130/80) [facility] Start: 11-22-2022 ANNUAL PCP TEAM HEEL SANDER RUBBER ALEXANDER DISEASE VISIT ANNUAL PCP TEAM CHRONIC DISEASE VISIT [facility] Start: 11-22-2022 BP CONTROLLED (<130/80) BP CONTROLLE D (<130/80) [facility] Start: 10-06-2022 COVID-19 VACCINE (6 - Moderna series) COVID-19 VACCINE (6 - Moderna series) [facility] Start: 10-04-2022 Hepatitis C antibody , confirmatory test DILATED RETINAL EXAM [facility] Start: 09-27-2022 Hemoglobin A1c/Hemoglobin.total in Blood HBA1C [facility] Start: 08-13-2022 ADVANCE DIRECTIVE DISCUSSION ADVANCE DIRECTIVE DISCUSSION [facility] Start: 08-13-2022 DEPRESSION ASSESSMENT DEPRESSION ASS ESSMENT [facility] Start: 08-02-2022 End: 10-02-2022 25-hydroxyvitamin D3 [Mass/volume] in Serum or Plasma [facility] Work Phone: Comment on above: Expected: 08/02/2022 , Expires: 10/02/2022 Start: 08-02-2022 End: 10-02-2022 ALBUMIN/CREAT RATIO RND UR [facility] Work Phone: Comment on above: Expected: 08/02/2022 , Expires: 10/02/2022 Start: 08-02-2022 End: 10-02-2022 Hemoglobin A1c in Blood [facility] Work Phone: Comment on above: Expected: 08/02/2022 , Expires: 10/02/2022 Start: 08-02-2022 End: 10-02-2022 Lipid 1996 panel - Serum or Plasma [facility] Work Phone: Comment on above: Expected: 08/02/2022 , Expires: 10/02/2022 Start: 08-02-2022 End: 10-02-2022 Pyridoxine [Mass/volume] in Serum or Plasma [facility] Work Phone: Comment on above: Expected: 08/02/2022 , Expires: 10/02/2022 Start: 05-16-2022 End: 05-30-2022 Influenza virus A and B RNA and SARS-CoV-2 (COVID-19) N gene panel - Respiratory specimen by JOANNA with probe detection COVID WITH FLUA+B, ROUTINE Microbiology Routine Suspected COVID-19 virus infection Expected: 05/16/2022, Expires: 05/30/2022 [facility] Work Phone: Comment on above: Expected: 05/16/2022 , Expires: 05/30/2022 Start: 04-13-2022 Influenza vaccination INFLUENZA (#1) [facility] Start: 03-15-2022 COVID-19 VACCINE (5 - Booster for Moderna series) COVID-19 VACCINE (5 - Booster for Moderna series) [facility] Start: 03-01-2022 3 comp foot exam completed DIABETIC FOOT EXAM [facility] Start: 03-01-2022 Urine microalbumin profile DTAP,TDAP,TD (2 - Td or Tdap) [facility] Comment on above: Postponed from 03/22 (Declined at this time) Start: 01-16-2022 Hemoglobin A1c/Hemoglobin.total in Blood HBA1C [facility] Start: 11-29-2021 Adult depression screening assessment DEPRESSION SCREENING [facility] Start: 11-25-2021 Hepatitis B screening URINE AL BUMIN:CREATININE RATIO [facility] Start: 11-23-2021 Hepatitis B surface antibody level [facility] Start: 10-10-2021 COVID-19 VACCINE (4 - Booster for Moderna series) COVID-19 VACCINE (4 - Booster for Moderna series) [facility] Start: 08-13-2021 DEPRESSION ASSESSMENT DEPRESSION ASS ESSMENT [facility] Start: 04-25-2020 BP CONTROLLED (<130/80) BP CONTROLLE D (<130/80) [facility] Start: 2017 RSV Vaccine (1 - 1-d ose 75+ series) RSV Vaccine (1 - 1-dose 75+ series) [facility] Start: 03-22-2016 Urine microalbumin profile [facility] Start: 04-13-2007 Medicare Annual Well ness Visit Medicare Annual Wellness Visit [facility] Start: 2002 Hepatitis B Vaccine (1 of 3 - Risk 3-dose series) Hepatitis B Vaccine (1 of 3 - Risk 3-dose series) [facility] Start: 2002 RSV Vaccine (1 - 1-d ose 60+ series) RSV Vaccine (1 - 1-dose 60+ series) [facility] Start: 1960 Depression Screening Depression Scre ening [facility] Acetone [Presence] i n Serum or Plasma [facility] Anion gap measurement [facility] Anion gap measurement [facility] Anion gap measurement [facility] Anion gap measurement [facility] Anion gap measurement [facility] Bacteria identified in Urine by Culture URINE CULTURE Microbiology Routine Urinary frequency Ordered: 12/09/2023 [facility] Work Phone: Comment on above: Ordered: 12/09/2023 End: 11-22-2022 Basic metabolic 2000 panel - Serum or Plasma BASIC METABOLIC PNL Lab Routine Encounter for long-term current use of medication Once per month for 12 Occurrences starting 11/22/2021 until 11/22/2022 [facility] Work Phone: Comment on above: Once per month for 1 2 Occurrences starting 11/22/2021 until 11/22/2022 BUN/Creatinine ratio [facility] BUN/Creatinine ratio [facility] BUN/Creatinine ratio [facility] BUN/Creatinine ratio [facility] BUN/Creatinine ratio [facility] Calcium [Mass/volume ] in Serum or Plasma [facility] Calcium [Mass/volume ] in Serum or Plasma [facility] Calcium [Mass/volume ] in Serum or Plasma [facility] Calcium [Mass/volume ] in Serum or Plasma [facility] Calcium [Mass/volume ] in Serum or Plasma [facility] Carbon dioxide, tota l [Moles/volume] in Serum or Plasma [facility] Carbon dioxide, tota l [Moles/volume] in Serum or Plasma [facility] Carbon dioxide, tota l [Moles/volume] in Serum or Plasma [facility] Carbon dioxide, tota l [Moles/volume] in Serum or Plasma [facility] Carbon dioxide, tota l [Moles/volume] in Serum or Plasma [facility] Chloride [Moles/volu me] in Serum or Plasma [facility] Chloride [Moles/volu me] in Serum or Plasma [facility] Chloride [Moles/volu me] in Serum or Plasma [facility] Chloride [Moles/volu me] in Serum or Plasma [facility] Chloride [Moles/volu me] in Serum or Plasma [facility] Creatine kinase [Enzymatic activity/volume] in Serum or Plasma [facility] Creatinine [Moles/vo lume] in Serum or Plasma [facility] Creatinine [Moles/vo lume] in Serum or Plasma [facility] Creatinine [Moles/vo lume] in Serum or Plasma [facility] Creatinine [Moles/vo lume] in Serum or Plasma [facility] Creatinine [Moles/vo lume] in Serum or Plasma [facility] ECG COMPLETE ECG COMPLETE ECG 01/31/2024 11:04 AM EDT [facility] End: 06-04-2024 EGD DIAGNOSTIC EGD DIAGNOSTIC Endoscopy Routine 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 1 Occurrences starting 06/04/2023 until 06/04/2024 [facility] Work Phone: Comment on above: 1 Occurrences starti ng 06/04/2023 until 06/04/2024 Glucose [Mass/volume ] in Serum or Plasma [facility] Glucose [Mass/volume ] in Serum or Plasma [facility] Glucose [Mass/volume ] in Serum or Plasma [facility] Glucose [Mass/volume ] in Serum or Plasma [facility] Glucose [Mass/volume ] in Serum or Plasma [facility] Hematocrit [Volume Fraction] of Blood [facility] Hematocrit [Volume Fraction] of Blood [facility] Hematocrit [Volume Fraction] of Blood [facility] Hematocrit [Volume Fraction] of Blood [facility] Hematocrit [Volume Fraction] of Blood [facility] Hemoglobin [Mass/vol ume] in Blood [facility] Hemoglobin [Mass/vol ume] in Blood [facility] Hemoglobin [Mass/vol ume] in Blood [facility] Hemoglobin [Mass/vol ume] in Blood [facility] Hemoglobin [Mass/vol ume] in Blood [facility] Hepb vaccine adult 3 dose schedule for im use HEP B VACCINE, 3-DOSE, AGE 20+ YR (ENGERIX-B, RECOMBIVAX HB) Immunization/Injection Routine Encounter for immunization 1 Occurrences starting 05/31/2023 [facility] Work Phone: Comment on above: 1 Occurrences starti ng 05/31/2023 Leukocytes [#/volume ] in Blood [facility] Leukocytes [#/volume ] in Blood [facility] Leukocytes [#/volume ] in Blood [facility] Leukocytes [#/volume ] in Blood [facility] Leukocytes [#/volume ] in Blood [facility] Mean corpuscular hemoglobin concentration determination [facility] Mean corpuscular hemoglobin concentration determination [facility] Mean corpuscular hemoglobin concentration determination [facility] Mean corpuscular hemoglobin concentration determination [facility] Mean corpuscular hemoglobin concentration determination [facility] Mean corpuscular hemoglobin determination [facility] Mean corpuscular hemoglobin determination [facility] Mean corpuscular hemoglobin determination [facility] Mean corpuscular hemoglobin determination [facility] Mean corpuscular hemoglobin determination [facility] Measurement of renal function [facility] Measurement of renal function [facility] Measurement of renal function [facility] Measurement of renal function [facility] Measurement of renal function [facility] MR Cervical spine [facility] Neutrophil count [facility] Neutrophil count [facility] Neutrophil count [facility] Neutrophil count [facility] Neutrophil count [facility] Neutrophil percent differential count [facility] Neutrophil percent differential count [facility] Neutrophil percent differential count [facility] Neutrophil percent differential count [facility] Neutrophil percent differential count [facility] Patient referral [facility] Work Phone: [employer] COVI D-19 VACCINE ( SEASON) AGE 12+ YR [employer] COVID-19 VACCINE ( SEASON) AGE 12+ YR Immunization/Injection Routine Encounter for immunization 1 Occurrences starting 05/31/2023 [facility] Work Phone: Comment on above: 1 Occurrences starti ng 05/31/2023 Platelets [#/volume] in Blood [facility] Platelets [#/volume] in Blood [facility] Platelets [#/volume] in Blood [facility] Platelets [#/volume] in Blood [facility] Platelets [#/volume] in Blood [facility] Potassium [Moles/vol ume] in Serum or Plasma [facility] Potassium [Moles/vol ume] in Serum or Plasma [facility] Potassium [Moles/vol ume] in Serum or Plasma [facility] Potassium [Moles/vol ume] in Serum or Plasma [facility] Potassium [Moles/vol ume] in Serum or Plasma [facility] Red blood cell count [facility] Red blood cell count [facility] Red blood cell count [facility] Red blood cell count [facility] Red blood cell count [facility] Red cell distributio n width determination [facility] Red cell distributio n width determination [facility] Red cell distributio n width determination [facility] Red cell distributio n width determination [facility] Red cell distributio n width determination [facility] Sodium [Moles/volume ] in Serum or Plasma [facility] Sodium [Moles/volume ] in Serum or Plasma [facility] Sodium [Moles/volume ] in Serum or Plasma [facility] Sodium [Moles/volume ] in Serum or Plasma [facility] Sodium [Moles/volume ] in Serum or Plasma [facility] End: 01-30-2025 STRESS ECHO TREADMILL STRESS ECHO TREADMILL Cardiology Routine Chest pain, unspecified type 1 Occurrences starting 01/31/2024 until 01/30/2025 [facility] Work Phone: Comment on above: 1 Occurrences starti ng 01/31/2024 until 01/30/2025 SURGICAL PATHOLOGY [facility] Work Phone: Comment on above: Release Upon Orderin g for 1 Occurrences starting 12/21/2021, 1 completed SURGICAL PATHOLOGY [facility] Work Phone: Comment on above: Release Upon Orderin g for 1 Occurrences starting 06/06/2023, 1 completed Urea nitrogen [Mass/volume] in Serum or Plasma [facility] Urea nitrogen [Mass/volume] in Serum or Plasma [facility] Urea nitrogen [Mass/volume] in Serum or Plasma [facility] Urea nitrogen [Mass/volume] in Serum or Plasma [facility] Urea nitrogen [Mass/volume] in Serum or Plasma [facility] End: 03-01-2025 US Carotid arteries - bilateral US CAROTID BILATERAL Radiology Routine Lightheadedness Syncope, unspecified syncope type 1 Occurrences starting 01/31/2024 until 03/01/2025 [facility] Comment on above: 1 Occurrences starti ng 01/31/2024 until 03/01/2025 End: 01-30-2025 US Carotid arteries - bilateral US CAROTID ARTERIES [facility] Routine Lightheadedness Syncope, unspecified syncope type 1 Occurrences starting 01/31/2024 until 01/30/2025 [facility] Comment on above: 1 Occurrences starti ng 01/31/2024 until 01/30/2025 [facility] Immunizations Immunization Date Immunization Notes Care Provider [facility] 06-10-2024 influenza, high dose seasonal, preservative-free Ellen Gonzalez RN Work Phone: [facility] 06-10-2024 influenza virus vacc ine, unspecified formulation Selam Shepard MA [facility] 05-29-2024 tetanus immune globulin Venus Gonzalez RN Work Phone: [facility] 05-31-2023 influenza (HD-IIV4) vaccine, age 65+ yr, high dose, quadrivalent, PF (FLUZONE HIGH-DOSE) Clarence Berry APRN.DRUPAL PHP DEVELOPER Work Phone: [facility] Work Phone: 05-31-2023 influenza virus vacc ine, unspecified formulation Martin Munguia AUDIO VISUAL ARTS DIRECTOR.DRIER ATTENDANT Work Phone: [facility] 06-05-2022 Kurt Nguyễn Bivale nt Booster Dr. Alicia Blount Work Phone: [facility] 05-02-2022 influenza, high-dose , quadrivalent vaccine (FLUZONE HIGH DOSE QUADRIVALENT) Clarence Berry APRN.DRUPAL PHP DEVELOPER Work Phone: [facility] 01-18-2022 Covid (Moderna) Dr. Alicia rothman Work Phone: [facility] 06-17-2021 zoster vaccine recombinant Alicia Blount MD Work Phone: [facility] 06-09-2021 COVID-19 vaccine, fu ll dose (MODERNA) Alicia Blount MD Work Phone: [facility] 05-25-2021 influenza, high dose seasonal, preservative-free Alicia Blount MD Work Phone: [facility] 03-10-2021 zoster vaccine recombinant Alicia Blount MD Work Phone: [facility] 10-20-2020 COVID-19 vaccine, fu ll dose (MODERNA) Alicia Blount MD Work Phone: [facility] 09-23-2020 COVID-19 vaccine, fu ll dose (MODERNA) Alicia Blount MD Work Phone: [facility] 07-26-2020 pneumococcal polysaccharide vaccine, 23 valent Alicia Blount MD Work Phone: [facility] 04-15-2020 influenza, injectabl e, quadrivalent, preservative free Dr. Alicia Blount Work Phone: [facility] 04-15-2020 influenza, seasonal, injectable Alicia Blount MD Work Phone: [facility] 04-25-2019 influenza, high dose seasonal, preservative-free Alicia Blount MD Work Phone: [facility] Work Phone: 04-20-2018 influenza, high dose seasonal, preservative-free Alicia Blount MD Work Phone: [facility] 05-17-2017 influenza, high dose seasonal, preservative-free Alicia Blount MD Work Phone: [facility] Work Phone: 05-11-2016 influenza, high dose seasonal, preservative-free Alicia Blount MD Work Phone: [facility] 05-12-2015 influenza, high dose seasonal, preservative-free Alicia Blount MD Work Phone: [facility] 09-07-2014 pneumococcal conjuga te vaccine, 13 valent Alicia Blount MD Work Phone: [facility] 05-13-2014 influenza, injectabl e, quadrivalent, preservative free Dr. Alicia Blount Work Phone: [facility] 05-13-2014 influenza, seasonal, injectable Alicia Blount MD Work Phone: [facility] 05-17-2013 influenza virus vacc ine, unspecified formulation Alicia Blount MD Work Phone: [facility] Work Phone: 05-18-2012 influenza virus vacc yana, unspecified formulation Alicia Blount MD Work Phone: [facility] Work Phone: 06-03-2011 influenza virus vacc ine, unspecified formulation Alicia Blount MD Work Phone: [facility] Work Phone: 05-03-2010 influenza virus vacc ine, unspecified formulation Alicia Blount MD Work Phone: [facility] Work Phone: 05-20-2009 influenza virus vacc ine, unspecified formulation Alicia Blount MD Work Phone: [facility] Work Phone: 05-13-2009 influenza virus vacc ine, unspecified formulation Alicia Blount MD Work Phone: [facility] Work Phone: 06-08-2008 influenza virus vacc ine, unspecified formulation Alicia Blount MD Work Phone: [facility] 01-08-2008 zoster vaccine, live Alicia munoz MD Work Phone: [facility] Work Phone: 09-05-2007 pneumococcal polysaccharide vaccine, 23 valent Alicia Blount MD Work Phone: [facility] Work Phone: 06-06-2007 influenza virus vacc ine, unspecified formulation Alicia Blount MD Work Phone: [facility] Work Phone: 06-19-2006 influenza virus vacc ine, unspecified formulation Alicia Blount MD Work Phone: [facility] Work Phone: 03-22-2006 tetanus toxoid, redu chuck diphtheria toxoid, and acellular pertussis vaccine, adsorbed Alicia Blount MD Work Phone: [facility] 06-08-2005 influenza virus vacc ine, unspecified formulation Alicia Blount MD Work Phone: [facility] Work Phone: Payers Date Payer Category Payer Self-pay [id number] 2015 Private Health Insurance HUMANA HUMANA MEDICARE SUPPLEMENT [id number] 2015-Present [phone] [address] [address] [place] [address] Indemnity [id number] .[id number] 2015 Private Health Insurance [id number] .[id number] .[id number] 2015 Private Health Insurance [id number] 2007 Medicare MEDICARE MEDICAR E A AND B [id number] 2007-Present [phone] [place] [address] Medicare [id number] .[id number] 2007 Medicare [id number]. 1.13.159 .2.7.3.801557.315 2007 Medicare [id number] Unknown [id number] 2.16.840.1.795191.3.579 .2.462 Unknown [id number] 2.16.840.1.265181.3.579 .2.462 Unknown [id number] 2.16.840.1.420692.3.579 .2.462 Unknown [id number] 2.16.840.1.071341.3.579 .2.462 Unknown [id number] 2.16.840.1.241603.3.579 .2.462 Unknown [id number] 2.16.840.1.677113.3.579 .2.462 Unknown [id number] 2.16.840.1.254831.3.579 .2.462 Unknown [id number] 2.16.840.1.892965.3.579 .2.462 Unknown [id number] 2.16.840.1.960259.3.579 .2.462 Unknown [id number] 2.16.840.1.904615.3.579 .2.462 Unknown [id number] 2.16.840.1.778119.3.579 .2.462 Unknown [id number] 2.16.840.1.026069.3.579 .2.462 Unknown [id number] 2.16.840.1.148966.3.579 .2.462 Unknown [id number] 2.16.840.1.590483.3.579 .2.462 Unknown [id number] 2.16.840.1.823502.3.579 .2.462 Unknown [id number] 2.16.840.1.340985.3.579 .2.462 Unknown [id number] 2.16.840.1.805138.3.579 .2.462 Unknown [id number] 2.16.840.1.009611.3.579 .2.462 Unknown [id number] 2.16.840.1.957288.3.579 .2.462 Unknown [id number] 2.16.840.1.788570.3.579 .2.462 Unknown [id number] 2.16.840.1.387544.3.579 .2.462 Unknown [id number] 2.16.840.1.300840.3.579 .2.462 Unknown [id number] 2.16.840.1.565702.3.579 .2.462 Unknown [id number] 2.16.840.1.388919.3.579 .2.462 Unknown [id number] 2.840.1.863306.3.579 .2.462 Unknown [id number] 2.840.1.571950.3.579 .2.462 Unknown [id number] 2.840.1.046103.3.579 .2.462 Unknown [id number] 2.840.1.293139.3.579 .2.462 Unknown [id number] 2.16840.1.787154.3.579 .2.462 Unknown [id number] 2.840.1.953352.3.579 .2.462 Unknown [id number] 2.16840.1.710138.3.579 .2.462 Unknown [id number] 2.16.840.1.061937.3.579 .2.462 Unknown [id number] 2.16.840.1.529328.3.579 .2.462 Unknown [id number] 2.16.840.1.430603.3.579 .2.462 Unknown [id number] 2.16840.1.052389.3.579 .2.462 Unknown [id number] 2.16.840.1.720608.3.579 .2.462 Unknown [id number] 2.16.840.1.315671.3.579 .2.462 Unknown [id number] 2.16.840.1.786660.3.579 .2.462 Unknown [id number] 2.16.840.1.414378.3.579 .2.462 Unknown [id number] 2.16.840.1.716013.3.579 .2.462 Unknown [id number] 2..840.1.020357.3.579 .2.462 Unknown [id number] 2.840.1.033872.3.579 .2.462 Unknown [id number] 2.840.1.651417.3.579 .2.462 Unknown [id number] 2.840.1.793736.3.579 .2.462 Unknown [id number] 2.840.1.268885.3.579 .2.462 Unknown [id number] 2.840.1.361336.3.579 .2.462 Unknown [id number] 2..840.1.167303.3.579 .2.462 Unknown [id number] 2.840.1.881619.3.579 .2.462 Unknown [id number] 2.840.1.564018.3.579 .2.462 Unknown [id number] 2.840.1.932322.3.579 .2.462 Unknown [id number] 2.840.1.295745.3.579 .2.462 Unknown [id number] 2.16.840.1.303439.3.579 .2.462 Unknown [id number] 2.16.840.1.516474.3.579 .2.462 Unknown [id number] 2.840.1.190699.3.579 .2.462 Unknown [id number] 2.840.1.917243.3.579 .2.462 Unknown [id number] 2.840.1.733543.3.579 .2.462 Unknown [id number] 2.840.1.449519.3.579 .2.462 Unknown [id number] 2.840.1.374238.3.579 .2.462 Unknown [id number] 2.840.1.217273.3.579 .2.462 Unknown [id number] .840.1.616188.3.579 .2.462 Unknown [id number] 2.840.1.134653.3.579 .2.462 Unknown [id number] 2.840.1.697885.3.579 .2.462 Unknown [id number] 2.840.1.186368.3.579 .2.462 Unknown [id number] .840.1.156908.3.579 .2.462 Unknown [id number] .840.1.492333.3.579 .2.462 Unknown [id number] 2.840.1.299983.3.579 .2.462 Unknown 1943 2.840.1.199337.3.579 .2.462 Unknown [id number] .840.1.951689.3.579 .2.462 Unknown [id number] .840.1.252354.3.579 .2.462 Unknown [id number] 2.840.1.790870.3.579 .2.462 Unknown [id number] 2.840.1.661676.3.579 .2.462 Unknown [id number] 2.840.1.050513.3.579 .2.462 Unknown [id number] 2.840.1.049443.3.579 .2.462 Unknown [id number] 2.16.840.1.292930.3.579 .2.462 Unknown [id number] 2..840.1.153716.3.579 .2.462 Unknown [id number] 2.16.840.1.199391.3.579 .2.462 Social History Date Type Detail Facility Start: 02-10-2011 End: 05-02-2022 Tobacco smoking status NHIS Never smoked tobacco [facility] Start: 09-19-2021 End: 07-15-2024 Alcohol intake Current drinker of alcohol (finding) [facility] Start: 10-07-2014 History SDOH Alcohol Comment 2-3 drinks/years [facility] Start: 1940 Sex Assigned At Not on file [facility] Start: 05-04-2021 End: 05-16-2022 Exposure to SARS-CoV-2 (event) Not sure [facility] Start: 02-10-2011 End: 05-02-2022 Tobacco use and exposure Smokeless tobacco non-user [facility] Start: 07-26-2022 End: 07-31-2023 Tobacco smoking status NHIS Unknown if ever smoked [facility] Start: 03-13-2017 Spouse/ Signif icant Other [facility] Start: 1940 Sex Assigned At Female [facility] Start: 01-29-2023 End: 07-15-2024 History of Social function [facility] Work Phone: Start: 01-29-2023 End: 07-15-2024 Tobacco use panel [facility] Work Phone: Start: 07-14-2012 Adult Depression Screening Assessment 0 [facility] Work Phone: Medical Equipment Procedure Code Equipment Code Equipment Origin al Text Equipment Identifier Dates [id number], [id number], [id number], [id number], [id number], [id number], [id number] Start: 07-15-2014 End: 08-14-2023 Comment on above: [...] Assessment Result Facility 06-26-2023 Functional status Bedrest [facility] Work Phone: 06-19-2023 Functional status Chair [facility] Work Phone: 06-18-2023 Functional status Standard Walker [facility] Work Phone: 06-17-2023 Functional status Bedrest [facility] Work Phone: 06-13-2023 Functional status Chair;Bathroom Privileg e [facility] Work Phone: 03-18-2015 Are you deaf, or do you have serious difficulty hearing No 03/18/2015 11:55 AM EDT Harlan Zarate LPN No [facility] 03-18-2015 Are you blind, or do you have serious difficulty seeing, even when wearing glasses No 03/18/2015 11:55 AM EDT Harlan Zarate LPN No [facility] 03-18-2015 Do you have serious difficulty walking or climbing stairs No 03/18/2015 11:55 AM EDT Harlan Zarate LPN No [facility] 03-18-2015 Do you have difficul ty dressing or bathing No 03/18/2015 11:55 AM EDT Harlan Zarate LPN No [facility] 03-18-2015 Because of a physica l, mental, or emotional condition, do you have difficulty doing errands alone such as visiting a physician's office or shopping No 03/18/2015 11:55 AM EDT Harlan Zarate LPN No [facility] Mental Status Date Assessment Result Facility 06-26-2023 Cognitive function Voice/Name;Touch/Shaki ng [facility] Work Phone: 06-22-2023 Cognitive function Appropriate;Cooperativ e [facility] Work Phone: 06-18-2023 Cognitive function Voice/Name [facility] Work Phone: 06-17-2023 Cognitive function Voice/Name [facility] Work Phone: 06-13-2023 Cognitive function Voice/Name [facility] Work Phone: 06-10-2023 Cognitive function Level Of Cons ciousness Awake;Alert;Appropriate;Fol lows Commands [facility] Work Phone: 03-18-2015 Because of a physica l, mental, or emotional condition, do you have serious difficulty concentrating, remembering, or making decisions No 03/18/2015 11:55 AM EDT Harlan Zarate LPN No [facility] Clinical Notes 11-14-2014 to 03-26-2025 Selam Shepard MA - 03/26/2025 9:44 AM Selam Lou MA - 02/23/2025 8:26 AM Selam Lou MA - 01/22/2025 10:22 AM Selam Lou MA - 12/23/2024 8:37 AM EDTPatient Instructions Note Date & Type Note Facility 03-26-2025 Note HNO ID: [id number] Author: SELAM SHEPARD MA Service: ? Author Type: Operating Theatre Technician Type: Progress Notes Filed: 03/26/2025 09:47 Note [...] Shepard MA March 26, 2025 9:44 AM [facility] 03-26-2025 History of Presen t illness Narrative [...] 2025 9:44 AM documented in this encounter [facility] 03-26-2025 Note Patient Outreach (TONY TRUONG) ANA IVORY ([id number]) 1940 F Date Time Provider Department 03/26/25 [...] 12/29/2020 14 - Other: See Comments NEOSPORIN ([id number]*08/31/19 09 2 - Rash Comments: blisters PIOGLITAZONE 12/29/2020 16 - Unknown PROTONIX (PANTOPRAZOLE) 01/13/2010 6 - Diarrhea RELAFEN (NABUMETONE) 03/22/2006 8 - GI Upset 11 - Vomiting SHRIMP 12/21/2021 8 - GI Upset ACTOS (PIOGLITAZONE HCL) 12/03/2016 7 - Swelling Date Reviewed: 07/15/2024 Reviewed by: Edwige Reyes LPN - Fully Assessed Reason for Visit: Population Health Navigation Outreach [3910] Cmt: [place]/Workbench/ACO Prescriptions as of 03/26/2025 - SEMGLEE,INSULIN GLARG-YFGN,PEN [...] Munguia refills) Also has SSI. - Insulin Campbell, Disposable, (BD ULTRA-FINE FOZIA PEN NEEDLE) 32 [...] daily. For 30 days - multivitamin-folic acid-biotin (YDBQ-UBTQ-EQTNG, ZD-KT-SUGIHR,) 400-2,000 mcg tab Take by mouth. - collagen, bovine, 100 % powd Apply t (more content not included)... [facility] 02-23-2025 Note HNO ID: [id number] Author: SELAM SHEPARD MA Service: ? Author Type: Operating Theatre Technician Type: Progress Notes Filed: 02/23/2025 08:26 Note [...] Shepard MA February 23, 2025 8:26 AM [facility] 02-23-2025 History of Presen t illness Narrative [...] 2025 8:26 AM documented in this encounter [facility] 02-23-2025 Note Patient Outreach (NE TNAV) ANA IVORY ([id number]) 1940 F Date Time Provider Department 02/23/25 [...] 12/29/2020 14 - Other: See Comments NEOSPORIN ([id number]*08/31/19 09 2 - Rash Comments: blisters PIOGLITAZONE [...] Munguia refjere) Also has SSI. - Insulin Campbell, Disposable, (BD ULTRA-FINE FOZIA PEN NEEDLE) 32 [...] daily. For 30 days - multivitamin-folic acid-biotin (MYLG-JJWR-MXDOW, YA-IY-LLLEVW,) 400-2,000 mcg tab Take by mouth. - collagen, bovine, 100 % powd Apply to affected area. - Cranberry-V (more content not included)... [facility] 01-22-2025 Note HNO ID: [id number] Author: SELAM SHEPARD MA Service: ? Author Type: Operating Theatre Technician Type: Progress Notes Filed: 01/22/2025 10:23 Note [...] Shepard MA January 22, 2025 10:22 AM [facility] 01-22-2025 History of Presen t illness Narrative [...] 2025 10:22 AM documented in this encounter [facility] 01-22-2025 Note Patient Outreach (NE TNAV) ANA IVORY ([id number]) 1940 F Date Time Provider Department 01/22/25 [...] 12/29/2020 14 - Other: See Comments NEOSPORIN ([id number]*08/31/19 09 2 - Rash Comments: blisters PIOGLITAZONE [...] Munguia refills) Also has SSI. - Insulin Campbell, Disposable, (BD ULTRA-FINE FOZIA PEN NEEDLE) 32 gauge x 5/32 Use one needle for each dose, 4 times daily. 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 - Pyridoxine HCl 250 mg tablet DAILY - DULoxetine (CYMBALTA) 60 mg capsule Take 1 capsule by mouth daily at bedtime. - flash glucose scanning reader ([employer] DONTRELL 2 READER) - flash glucose sensor [...] daily. For 30 days - multivitamin-folic acid-biotin (VQCR-VFHK-GRUET, HI-IR-RKTOZE,) 400-2,000 mcg tab Take by mouth. - collagen, bovine, 100 % powd Jonel (more content not included)... [facility] 12-23-2024 Note HNO ID: [id number] Author: SELAM SHEPARD MA Service: ? Author Type: Operating Theatre Technician Type: Progress Notes Filed: 12/23/2024 08:38 Note [...] Shepard MA December 23, 2024 8:37 AM [facility] 12-23-2024 History of Presen t illness Narrative [...] or unnecessary to reach patient: Left message [employer] message sent HCC related Navigation Signature: Selam Shepard MA December 23, 2024 8:09 AM documented in this encounter [facility] 12-23-2024 Note HNO ID: [id number] Author: SELAM SHEPARD MA Service: ? Author Type: Operating Theatre Technician Type: Progress Notes Filed: 12/23/2024 08:10 Note [...] or unnecessary to reach patient: Left message [employer] message sent HCC related Navigation Signature: Selam Shepard MA December 23, 2024 8:09 AM [facility] 12-23-2024 Note Patient Outreach (NE TNAV) ANA IVORY ([id number]) 1940 F Date Time Provider Department 12/23/24 [...] MA December 23, 2024 8:09 AM Selam Shepard MA 12/23/2024 8:38 AM Signed POPULATION HEALTH [...] 12/29/2020 14 - Other: See Comments NEOSPORIN ([id number]*08/31/19 09 2 - Rash Comments: blisters PIOGLITAZONE [...] Munguia refjere) Also has SSI. - Insulin Campbell, Disposable, (BD ULTRA-FINE FOZIA PEN NEEDLE) 32 gauge x 5/32 Use one needle for each dose, 4 times daily. 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 - Pyridoxine HCl 250 mg tablet DAILY - DULoxetine (CYMBALTA) 60 mg capsule Take 1 capsule by mouth daily at bedtime. - flash glucose scanning reader ([employer] DONTRELL (more content not included)... [facility] 12-19-2024 Telephone encounter Note Noted. Alicia Blount MD [facility] 12-19-2024 Miscellaneous Notes Noted. Alicia Blount MD Shani from [facility] Home Health calling with plan of care starting next week, OT 2 visits weekly for 3 weeks, working on balance and ADL's and meal prep. Do not need a call back. documented in this encounter [facility] 12-18-2024 Telephone encounter Note Shani from [facility] Home Health calling with plan of care starting next week, OT 2 visits weekly for 3 weeks, working on balance and ADL's and meal prep. Do not need a call back. [facility] 12-17-2024 Telephone encounter Note Home care Certification Form 485 received from [facility]. For cert dates 10/20/24-12/18/24 that were signed on 10/30/24. New Certification Patient's home health 485 form / care plan for stated certification period reviewed and signed. Relevant medical records were reviewed. No changes were indicated [facility] 12-17-2024 Miscellaneous Notes Home care Certification Form 485 received from [facility]. For cert dates 10/20/24-12/18/24 that were signed on 10/30/24. New Certification Patient's home health 485 form / care plan for stated certification period reviewed and signed. Relevant medical records were reviewed. No changes were indicated documented in this encounter [facility] 12-15-2024 Telephone encounter Note Noted and agree. [facility] Work Phone: 12-15-2024 Miscellaneous Notes Noted and agree. Shani from [facility] Home Health calling with OT plan of care, one visit this week. She will call back with new plan next week. No need for return call. documented in this encounter [facility] 12-15-2024 Telephone encounter Note Shani from [facility] calling with OT plan of care, one visit this week. She will call back with new plan next week. No need for return call. [facility] 12-10-2024 Telephone encounter Note Noted, agree. [facility] Work Phone: 12-10-2024 Miscellaneous Notes Noted, agree. Shani - OT- reports she was suppose to see pt today but pt cancelled due to a hair appt. Shani will see patient next week instead. Shani states she will go ahead and put the order in, and doesn't need a call back unless pcp disagrees. documented in this encounter [facility] 12-10-2024 Telephone encounter Note Shani - OT- reports she was suppose to see pt today but pt cancelled due to a hair appt. Shani will see patient next week instead. Shani states she will go ahead and put the order in, and doesn't need a call back unless pcp disagrees. [facility] 11-20-2024 Telephone encounter Note Noted, OK [facility] 11-20-2024 Miscellaneous Notes Noted, [place] Shani OT calling from [facility] to report plan of care for [...] Coby Reynolds RN documented in this encounter [facility] 11-20-2024 Note HNO ID: [id number] Author: SELAM SHEPARD MA Service: ? Author Type: Operating Theatre Technician Type: Progress Notes Filed: 11/20/2024 08:58 Note [...] Shepard MA November 20, 2024 8:57 AM [facility] 11-20-2024 History of Presen t illness Narrative [...] 2024 8:57 AM documented in this encounter [facility] 11-20-2024 Note Patient Outreach (NE TNAV) ANA IVORY ([id number]) 1940 F Date Time Provider Department 11/20/24 [...] 12/29/2020 14 - Other: See Comments NEOSPORIN ([id number]*08/31/19 09 2 - Rash Comments: blisters PIOGLITAZONE [...] Munguia refjere) Also has SSI. - Insulin Campbell, Disposable, (BD ULTRA-FINE FOZIA PEN NEEDLE) 32 gauge x 32 Use one needle for each dose, 4 times daily. 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 - Pyridoxine HCl 250 mg tablet DAILY - DULoxetine (CYMBALTA) 60 mg capsule Take 1 capsule by mouth daily at bedtime. - flash glucose scanning reader ([employer] DONTRELL 2 READER) - flash glucose sensor [...] daily. For 30 days - multivitamin-folic acid-biotin (MNEY-JTQO-LJCKR, YD-SI-HQZGAT,) 400-2,000 mcg tab Take by mouth. - collagen, bovine, 100 % powd Apply to affe (more content not included)... [facility] 11-19-2024 Telephone encounter Note Shani STEWART calling from [facility] to report plan of care for [...] back needed unless questions Coby Reynolds RN [facility] 10-29-2024 Telephone encounter Note Detailed message left for nurse Steph of below instructions. [facility] 10-29-2024 Miscellaneous Notes Detailed message left for [...] UTI if develops concerning symptoms. Steph from [facility] Home Health calling she was the card tape converter operator nurse this weekend and was called by the patient daughter Sunday. Daughter said she had not given her mother the macrobid rx for 4 days, she did not know she was to continue taking the medication. Nurse had called Dr circulation sales representative Sunday and was told patient to continue taking the macrobid rx. Daughter said she was not given the urine culture results from the hospital. Aware patient needs to schedule hospital follow up appt. Nurse was asking about if patient needs to have another urine test done? Please advise documented in this encounter [facility] 10-28-2024 Telephone encounter Note Looks like Dr. Forbes sent the RX for macrobid because patient complained of dysuria. It was added to the discharge summary (addendum) so was not part of the main part of the discharge summary. If she does not have any symptoms, can hold of on th antibiotic. Can check urine for UTI if develops concerning symptoms. [facility] 10-27-2024 Telephone encounter Note The 98 pills should have said 8. I must have hit the 9 by accident as noted in the actual question: Karina asking if provider wants patient to take the baby aspirin and continue the 8 remaining doses of Macrobid? Message left for Karina with [facility] to notify that patient should be taking Baby Aspirin daily and finishing ATB. I am closing this encounter as now there are several others regarding same issue. Anne Rivera, RN [facility] 10-27-2024 Miscellaneous Notes The 98 pills should have said 8. I must have hit the 9 by accident as noted in the actual question: Karina asking if provider wants patient to take the baby aspirin and continue the 8 remaining doses of Macrobid? Message left for Karina with [facility] to notify that patient should be taking [...] only prescribed 14 pills Karina nurse with [facility] calls to let provider know that [...] of Macrobid? Karina requests call back at [phone]. Please review and advise, Anne Rivera RN documented in this encounter [facility] 10-27-2024 Telephone encounter Note Shelli OT- [facility]- phoned with OT update POC: will see pt 2 x's week for 4 weeks for ADLs and IADLs and also reporting delay of care eval due to full schedule. No call back needed. [facility] 10-27-2024 Miscellaneous Notes Shani- OT- [facility]- phoned with OT update POC: will see pt 2 x's week for 4 weeks for ADLs and IADLs and also reporting delay of care eval due to full schedule. No call back needed. documented in this encounter [facility] 10-27-2024 Telephone encounter Note Steph from [facility] calling she was the card tape converter operator nurse this weekend and was called by the patient daughter Sunday. Daughter said she had not given her mother the macrobid rx for 4 days, she did not know she was to continue taking the medication. Nurse had called Dr circulation sales representative Sunday and was told patient to continue taking the macrobid rx. Daughter said she was not given the urine culture results from the hospital. Aware patient needs to schedule hospital follow up appt. Nurse was asking about if patient needs to have another urine test done? Please advise [facility] 10-25-2024 Telephone encounter Note Received call from [facility] nurse regarding patient. Pt was discharged from [...] home health visit. Dr. Ligia Schilling DO [facility] Work Phone: 10-25-2024 Miscellaneous Notes Received call from [facility] nurse regarding patient. Pt was discharged from [...] Ligia Schilling DO documented in this encounter [facility] 10-25-2024 Telephone encounter Note Steph RN with [facility] for patient, calling requesting urine lab order; Conferenced to [facility]. Caregiver denies any new or worsening symptoms of which a provider is not aware:Yes . GO TO THE EMERGENCY ROOM OR CALL 911 IF: * You develop any new symptoms * Your condition worsens * You are concerned or anxious about your condition for any other reason. If you have any questions, you can call Nurse circulation sales representative back. Gabrielle Murdock RN [facility] 10-25-2024 Miscellaneous Notes Steph RN with [facility] for patient, calling requesting urine lab order; [...] have any questions, you can call Nurse circulation sales representative back. Gabrielle Murdock RN documented in this encounter [facility] 10-25-2024 Telephone encounter Note Baby aspirin is [...] -- Dr. Forbes only prescribed 14 pills [facility] 10-24-2024 Telephone encounter Note Karina nurse with [facility] calls to let provider know that [...] of Macrobid? Karina requests call back at [phone]. Please review and advise, Anne Rivera, MANNY [facility] 10-24-2024 Telephone encounter Note Noted. [facility] Work Phone: 10-24-2024 Miscellaneous Notes Noted. Rhina from [facility] Home Health calling she has completed patient ST eval and plan to work on swallowing therapy, 2 visits weekly for 2 weeks. No need to return call. documented in this encounter [facility] 10-23-2024 Telephone encounter Note Rhina from [facility] Home Health calling she has completed patient ST eval and plan to work on swallowing therapy, 2 visits weekly for 2 weeks. No need to return call. [facility] 10-21-2024 Telephone encounter Note Below response left on identified vm. Juana Muro LPN [facility] 10-21-2024 Miscellaneous Notes Below response left on [...] Noted insulin changes per Dr. Genny Munguia ([facility]) Updated med list Hardik [facility] POC on Pt and reports they [...] Asprin 81 mg. documented in this encounter [facility] 10-21-2024 Telephone encounter Note Patient has intolerance [...] Dr. Genny Munguia (endo) Updated med list [facility] 10-20-2024 Telephone encounter Note Hardik [facility] POC on Pt and reports they [...] shouldn't be taking the Asprin 81 mg. [facility] 10-17-2024 Telephone encounter Note Called and left a detailed voicemail notifying [facility] of providers message. Clinic phone number was left in case they had any questions. Judith Renteria RN [facility] 10-17-2024 Miscellaneous Notes Called and left a detailed voicemail notifying [facility] of providers message. Clinic phone number was left in case they had any questions. Judith Renteria RN Please call and let them know that yes, we will follow. Thanks. Isabella Emerson APRN.DRIER ATTENDANT [facility] called in and reports Pt was D/Chuck from TCU today for a stroke on 08/30. Pt was discharged with PT/OT/SN/SW/ST. She was asking if provider would be willing to follow. Please call and advise. documented in this encounter [facility] 10-17-2024 Telephone encounter Note Please call and let them know that yes, we will follow. Thanks. Isabella Emerson APRN.DRIER ATTENDANT [facility] Work Phone: 10-17-2024 Telephone encounter Note [facility] called in and reports Pt was D/Chuck from TCU today for a stroke on 08/30. Pt was discharged with PT/OT/SN/SW/ST. She was asking if provider would be willing to follow. Please call and advise. [facility] 10-10-2024 Note [facility] 09-21-2024 Note [facility] 09-19-2024 Note [facility] 08-29-2024 Note [facility] 08-29-2024 Note [facility] 08-25-2024 Note [facility] 08-07-2024 Note [facility] 08-06-2024 Note [facility] 08-01-2024 Note HNO ID: [id number] Author: ELLEN GONZALEZ RN Service: ? Author Type: Registered Nurse Type: Progress Notes Filed: 08/01/2024 10:47 Note Text: Transitional Care Management (TCM) Follow-Up Note PCP Update / Actionable Items N/A - No specialty updates needed Patient Source: Jfk-sf-Drkwnvq (OON) Discharge Outreach Summary: Pt reports she is currently experiencing cold symptoms, congestion, fatigue. Denies any fever, chills, vomiting. Blood sugar continues to be up and down over the last week in the 200's, using SSI . Pt. encouraged to call PCP with any questions or concerns. Patient discharged from [facility]. Discharge date: 07/12/24 Admitted for: Syncope Readmission [...] Gonzalez RN August 01, 2024 10:46 AM [facility] 08-01-2024 History of Presen t illness Narrative Transitional Care Management (TCM) Follow-Up Note PCP Update / Actionable Items N/A - No specialty updates needed Patient Source: Vrm-js-Grchmsl (OON) Discharge Outreach Summary: Pt reports she is currently experiencing cold symptoms, congestion, fatigue. Denies any fever, chills, vomiting. Blood sugar continues to be up and down over the last week in the 200's, using SSI . Pt. encouraged to call PCP with any questions or concerns. Patient discharged from [facility]. Discharge date: 07/12/24 Admitted for: Syncope Readmission [...] 2024 10:46 AM documented in this encounter [facility] 08-01-2024 Note Patient Outreach (AM [facility]) ERIKSARAH LOWEDemarcus Wheeler ([id number]) 1940 F Date Time Provider Department 08/01/24 ELLEN GONZALEZ During your visit today, we recorded the following information about you: Ellen Gonzalez RN 08/01/2024 10:47 AM Signed Transitional Care Management (TCM) Follow-Up Note PCP Update / Actionable Items N/A - No specialty updates needed Patient Source: Egt-dh-Pgdsrsc (OON) Discharge Outreach Summary: Pt reports she is currently experiencing cold symptoms, congestion, fatigue. Denies any fever, chills, vomiting. Blood sugar continues to be up and down over the last week in the 200's, using SSI . Pt. encouraged to call PCP with any questions or concerns. Patient discharged from [facility]. Discharge date: 07/12/24 Admitted for: Syncope Readmission [...] Gonzalez RN August 01, 2024 10:46 AM Allergies [...] 12/29/2020 14 - Other: See Comments NEOSPORIN ([id number]*08/31/19 09 2 - Rash Comments: blisters PIOGLITAZONE [...] mg by joe (more content not included)... [facility] 07-24-2024 Note HNO ID: [id number] Author: ELLEN GONZALEZ RN Service: ? Author Type: Registered Nurse Type: Progress Notes Filed: 07/24/2024 13:18 Note Text: Transitional Care Management (TCM) Follow-Up Note PCP Update / Actionable Items N/A - No specialty updates needed Patient Source: Kdz-os-Etebqst (OON) Discharge Outreach Summary: Pt reports her blood sugar continues to run high during the day - has been running in the high 200's . Pt states she is following with marion Steele at [facility] and awaiting approval on an insulin pump. Encouraged pt to contact Dr. Munguia or PCP 's office should Blood glucose continue to increase above 300. Patient discharged from [facility]. Discharge date: 07/12/24 Admitted for: Syncope Readmission [...] Gonzalez RN July 24, 2024 1:13 PM [facility] 07-24-2024 Note Patient Outreach (AM [facility]) ANA IVORY ([id number]) 1940 F Date Time Provider Department 07/24/24 ELLEN GONZALEZ During your visit today, we recorded the following information about you: Ellen Gonzalez RN 07/24/2024 1:18 PM Signed Transitional Care Management (TCM) Follow-Up Note PCP Update / Actionable Items N/A - No specialty updates needed Patient Source: Mly-qy-Hpqkcad (OON) Discharge Outreach Summary: Pt reports her blood sugar continues to run high during the day - has been running in the high 200's . Pt states she is following with marion Steele at [facility] and awaiting approval on an insulin pump. Encouraged pt to contact Dr. Munguia or PCP 's office should Blood glucose continue to increase above 300. Patient discharged from [facility] Discharge date: 07/12/24 Admitted for: Syncope [...] 12/29/2020 14 - Other: See Comments NEOSPORIN ([id number]*08/31/19 09 2 - Rash Comments: blisters PIOGLITAZONE [...] 28 Units subcutaneousl (more content not included)... [facility] 07-16-2024 Note HNO ID: [id number] Author: MELANY JESUS MA Service: ? Author Type: Operating Theatre Technician Type: Progress Notes Filed: 07/16/2024 08:55 Note Text: POPULATION HEALTH NAVIGATION OUTREACH Action/FYI CM Pool Message: Type: TCM Navigation Team Please assist with scheduling TCM Hospital Discharge Follow up. TCM Eligible until 07/26/24 Patient discharged from: [facility] Discharge date: 07/12/24 Admitted for: Syncope TCM eligible through 07/26/24 Outcome: Final attempt. Patient was seen yesterday for her hospital follow up appointment. Reason for Outreach Returned Call/MyChart Patient Contacted: Unable or unnecessary to reach patient: Patient already scheduled Navigation Signature: Melany Jesus MA July 16, 2024 8:54 AM [facility] 07-15-2024 Instructions Alicia Blount MD - 07/15/2024 [...] as needed for nausea; prescription sent to [facility]. - Use Ventolin inhaler as prescribed; refill sent to [facility]. - Monitor blood sugar levels and adjust insulin doses as needed. - Follow up with Dr. Munguia for lab work once your blood sugar is between 100-160 mg/dL. - Next appointment in September. documented in this encounter [facility] 07-15-2024 Note HNO ID: [id number] Author: ALICIA BLOUNT MD Service: ? Author [...] a 84 year old lady here for [facility] follow up appointment. Ana Ivory is an [...] has upcoming lab work scheduled with her outsole scheduler, Dr. Munguia. She also reports frequent urination but denies symptoms of diabetic ketoacidosis. Ana uses a Ventolin inhaler for bronchiectasis and requests a refill. She reports that she is supposed to use it three times a day, six puffs each time, but is currently out of the medication. 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 Chanel, in August. 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 Dada Rodríguez. Mild cataract in L eye- no need for cataract surgery at this time. Continue to follow up the cataract. 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 At this time, we anticipate that [...] assistance with chest tube to [facility]. Return to [facility] on Sunday11/18/[address] removal . 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 A face to face encounter was performed during this hospital admission r (more content not included)... [facility] 07-15-2024 History of Presen t illness Narrative [...] a 84 year old lady here for [facility] hospital follow up appointment. Ana Ivory is [...] has upcoming lab work scheduled with her outsole scheduler, Dr. Munguia. She also reports frequent urination but denies symptoms of diabetic ketoacidosis. Ana uses a Ventolin inhaler for bronchiectasis and requests a refill. She reports that she is supposed to use it three times a day, six puffs each time, but is currently out of the medication. 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 Chanel, in August. 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 Dada Rodríguez. Mild cataract in L eye- no need for cataract surgery at this time. Continue to follow up the cataract. 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 At this time, we anticipate that [...] care for assistance [facility]. Return to [facility] on Sunday11/18/[address] [...] daily at bedtime. (Dr. Genny funes)) Insulin Campbell, Disposable, (BD ULTRA-FINE FOZIA PEN NEEDLE) 32 [...] once daily. For 30 days multivitamin-folic acid-biotin (EHLA-PNIR-YGYOX, MT-XG-MAQTQW,) 400-2,000 mcg tab Take by mouth. collagen, [...] (no units) Date Value 07/18/2021 7.4 From [facility] Blood cultures x2 from two different sites No growth in 48 hours. Normal [facility] Yeast, not Shanna albicans [place] Count 80,000-100,000 Normal [facility] # Syncope, unspecified syncope type (R55) - [...] Recurrent bronchospasm (J98.09) # Bronchiectasis without complication ([facility]) (J47.9) - Refilled Ventolin inhaler; instructed to use as needed for bronchospasm. - Follow-up with printed circuit boards laminator Dr. Chanel scheduled in August. - Monitor for any changes in respiratory status or increased frequency of bronchospasm episodes. Alicia Blount MD documented in this encounter [facility] 07-14-2024 Note HNO ID: [id number] Author: MELANY JESUS MA Service: ? Author Type: Operating Theatre Technician Type: Progress Notes Filed: 07/14/2024 12:41 Note Text: POPULATION HEALTH NAVIGATION OUTREACH Action/FYI CM Pool Message: Type: TCM Navigation Team Please assist with scheduling TCM Hospital Discharge Follow up. TCM Eligible until 07/26/24 Patient discharged from: [facility] Discharge date: 07/12/24 Admitted for: Syncope TCM [...] Jesus MA July 14, 2024 12:09 PM [facility] 07-14-2024 History of Presen t illness Narrative POPULATION HEALTH NAVIGATION OUTREACH Action/FYI CM Pool Message: Type: TCM Navigation Team Please assist with scheduling TCM Hospital Discharge Follow up. TCM Eligible until 07/26/24 Patient discharged from: [facility] Discharge date: 07/12/24 Admitted for: Syncope TCM [...] TCM Home Visit Referral Source of Stratification: [facility] Hospital Admission Status: Discharged Readmission Risk Score: n/a Patient's zip code: [address] Is zip code within program service area: [...] Eligible until 07/26/24 Thank you Patient Source: Hdc-zv-Yvlzrsh (OON) Discharge Outreach Summary: Spoke with pt's [...] pt is staying hydrated. Patient discharged from [facility]. Discharge date: 07/12/24 Admitted for: Syncope Readmission Risk: n/a Value-Based Contract: ACO Contact: Contact made with patient: Yes Hi, my name is Ellen Gonzalez RN and I am calling from the [facility] on behalf of your Primary Care Provider, [...] like to speak with a social work steam press tender to help give you support for any [...] I will send your request to a pack train driver who will contact and assist you with [...] Complete Navigation Team box and route to [facility] ([id number]) for scheduling. Education Patient and family educated on issues/questions related to reason for admission, transition of care topics, and follow-up needed upon discharge. Targets addressed / completed during outreach: Contact patient within two (2) business days Outreach Outcome: Enrolled in TCM Care Management partners utilized: Navigation Team Ellen Gonzalez RN July 14, 2024 11:58 AM documented in this encounter [facility] 07-14-2024 Note HNO ID: [id number] Author: ELLEN GONZALEZ RN Service: ? Author Type: Registered Nurse Type: Progress Notes Filed: 07/14/2024 12:07 Note Text: Transition Care Management (TCM) Initial Outreach PCP Update / Actionable Items HRTIC TCM Home Visit Referral Source of Stratification: [facility] Hospital Admission Status: Discharged Readmission Risk Score: n/a Patient's zip code: [address] Is zip code within program service area: [...] Eligible until 07/26/24 Thank you Patient Source: Yuy-eg-Sebvesr (OON) Discharge Outreach Summary: Spoke with pt's [...] pt is staying hydrated. Patient discharged from [facility]. Discharge date: 07/12/24 Admitted for: Syncope Readmission Risk: n/a Value-Based Contract: ACO Contact: Contact made with patient: Yes Hi, my name is Ellen Gonzalez RN and I am calling from the [facility] on behalf of your Primary Care Provider, [...] like to speak with a social work steam press tender to help give you support for any [...] I will send your request to a pack train driver who will contact and assist you with [...] Complete Navigation Team box and route to [facility] ([id number]) for scheduling. Education Patient and family educated on issues/questions related to reason for admission, transition of care topics, and follow-up needed upon discharge. Targets addressed / completed during outreach: Contact patient within two (2) business days Outreach Outcome: Enrolled in TCM Care Management partners utilized: Navigation Team Ellen Gonzalez RN July 14, 2024 11:58 AM [facility] 07-14-2024 Note Patient Outreach (AM [facility]) ANA IVORY ([id number]) 1940 F Date Time Provider Department 07/14/24 ELLEN GONZALEZG During your visit today, we recorded the following information about you: Ellen Gonzalez RN 07/14/2024 12:07 PM Signed Transition Care Management (TCM) Initial Outreach PCP Update / Actionable Items HRTIC TCM Home Visit Referral Source of Stratification: [facility] Hospital Admission Status: Discharged Readmission Risk Score: n/a Patient's zip code: [address] Is zip code within program service area: [...] Eligible until 07/26/24 Thank you Patient Source: Cxj-gk-Kzdcqbq (OON) Discharge Outreach Summary: Spoke with pt's [...] pt is staying hydrated. Patient discharged from [facility] Discharge date: 07/12/24 Admitted for: Syncope Readmission Risk: n/a Value-Based Contract: ACO Contact: Contact made with patient: Yes Hi, my name is Ellen Gonzalez RN and I am calling from the [facility] on behalf of your Primary Care Provider, [...] like to speak with a social work steam press tender to help give you support for any [...] I will send your request to a pack train driver who will contact and assist you with [...] Complete Navigation Team box and route to [facility] ([id number]) for scheduling. Education Patient and family educated [...] MA 07/14/2024 12:41 (more content not included)... [facility] 07-12-2024 Note [facility] 05-27-2024 Instructions Alicia Blount MD - 05/27/2024 11:56 AM EDT - Take lorazepam as prescribed; refill sent to [facility] in [place]. - Continue taking Cymbalta as prescribed. - [...] Take metoprolol as prescribed; refill sent to [facility]. - Take cephalexin (Keflex) every night as [...] in four months. documented in this encounter [facility] 05-27-2024 Note HNO ID: [id number] Author: ALICIA BLOUNT MD Service: ? Author Type: Physician Type: Progress Notes Filed: 07/04/2024 17:59 Note Text: This note was created using DrFirstriter. Subjective Ana Ivory is a 84 year [...] esophagus C. difficile diarrhea 10/18/2011 Cataract 04/17/2013 [facility], Dr. Dada Rodríguez. Mild cataract in L eye- no need for cataract surgery at this time. Continue to follow up the cataract. 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 At this time, we anticipate that [...] of complication, not (more content not included)... [facility] 05-27-2024 History of Presen t illness Narrative This note was created using DrFirstriter. Subjective Ana Ivory is a 84 year [...] esophagus C. difficile diarrhea 10/18/2011 Cataract 04/17/2013 [facility], Dr. Dada Rodríguez. Mild cataract in L eye- no need for cataract surgery at this time. Continue to follow up the cataract. 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 At this time, we anticipate that [...] daily at bedtime. (Dr. Genny funes)) Insulin Campbell, Disposable, (BD ULTRA-FINE FOZIA PEN NEEDLE) 32 [...] once daily. For 30 days multivitamin-folic acid-biotin (CCEN-JSOD-OTSUA, UP-AE-WMXKAG,) 400-2,000 mcg tab Take by mouth. collagen, [...] (F41.9) - Refilled lorazepam prescription, sent to [facility] in [place] with a fill date of June 05 and added refills to prevent running out before the next appointment. # Essential hypertension (I10) - Blood pressure well-controlled at 120s/60s. - Refilled metoprolol prescription, sent to [facility]. # Diabetes 1.5, managed as type 1 [...] Alicia Blount MD documented in this encounter [facility] 05-01-2024 Telephone encounter Note Noted, agree with ER. Monitor for ER visit and schedule follow-up as needed. [facility] 05-01-2024 Miscellaneous Notes Noted, agree with ER. [...] aches, fatigue. 10. : No. Protocols used: Jlmpzelp-YNVBO-PI documented in this encounter [facility] 05-01-2024 Telephone encounter Note Patient reports having [...] aches, fatigue. 10. : No. Protocols used: Vqqdwdoe-YORYN-TH [facility] 04-28-2024 Telephone encounter Note Called to [...] floor at Radiology: [address]; [place] [address] * If you need to cancel or reschedule this test or have any questions regarding this test, please call [phone]. [facility] 04-28-2024 Miscellaneous Notes Called to review [...] floor at Radiology: [address]; [place] [address] * If you need to cancel or reschedule this test or have any questions regarding this test, please call [phone]. documented in this encounter [facility] 03-18-2024 Telephone encounter Note Prescription Refill Information [...] Mague Navarro March 18, 2024 2:25 PM [facility] 03-18-2024 Miscellaneous Notes Prescription Refill Information The [...] 2024 2:25 PM documented in this encounter [facility] 03-04-2024 Telephone encounter Note Called and left [...] floor at Radiology: [address]; [place] [address] * If you need to cancel or reschedule this test or have any questions regarding this test, please call [phone]. [facility] 03-04-2024 Miscellaneous Notes Called and left [...] floor at Radiology: [address]; [place] [address] * If you need to cancel or reschedule this test or have any questions regarding this test, please call [phone]. documented in this encounter [facility] 02-17-2024 History of Presen t illness Narrative [...] a full evaluation. documented in this encounter [facility] 02-17-2024 Progress note Formatting of t his note might be different from the original. NSR. At OV encouraged to schedule appointment with cardiology. [facility] 02-17-2024 Miscellaneous Notes NSR. At OV encouraged to schedule appointment with cardiology. 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 Dada Rodríguez. Mild cataract in L eye- no need for cataract surgery at this time. Continue to follow up the cataract. 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 At this time, we anticipate that [...] Lansoprazole, Macrobid [Nitrofurantoin Monohyd/M-Cryst], Metformin, Miconazole, Neosporin [Upasymvv-Uiyamuqmou-Rlverqjno], Pioglitazone, Protonix [Pantoprazole], Relafen [Nabumetone], Shrimp, and [...] for 180 days. Morning and bedtime Insulin Campbell, Disposable, (BD ULTRA-FINE FOZIA PEN NEEDLE) 32 [...] once daily. For 30 days multivitamin-folic acid-biotin (TPQL-OFJY-EODBU, KE-VN-JOLTTI,) 400-2,000 mcg tab Take by mouth. collagen, [...] Martin COHN APRN.CNP documented in this encounter [facility] 01-31-2024 Telephone encounter Note done [facility] 01-31-2024 Miscellaneous Notes done Carotid ultrasounds are done in vascular lab. Pt will need to be scheduled in vas lab. May we please have vascular lab orders placed. US Carotid Arteries [facility] Thank you very much! Yuli aBl RDMS documented in this encounter [facility] 01-31-2024 Telephone encounter Note Carotid ultrasounds are done in vascular lab. Pt will need to be scheduled in vas lab. May we please have vascular lab orders placed. US Carotid Arteries [facility] Thank you very much! Yuli Bal RDMS [facility] 01-31-2024 Instructions Clarence Berry APRN.CNS - 01/31/2024 11:02 AM EDT Be sure to drink plenty of fluids, aim for 64 ounces per day. Avoid being out in the severe heat. Wear compression stockings when sitting or standing for long periods of time. Please make an appointment with cardiology. Please wear supportive shoe wear and let your interlibrary loan services librarian know if you are not continuing to have ankle or foot discomfort. documented in this encounter [facility] 01-31-2024 History of Presen t illness Narrative [...] Type 1 (Hcc) She was admitted to [facility] June 10 through June 12 for sepsis [...] and OT evaluation along with social media editor prior to discharge. Continued on Glucerna shakes with meals for increased nutrition until taking oral consistently better. Discharged to SNF. Admit TCU 06/13/2023 to 06/20/2023 for rehabilitation prior to discharge home. She has [facility] home health care. There was a [...] at this time. Followed by Dr Munguia [facility] regarding DM. DIABETES MELLITUS: Without report of [...] for 180 days. Morning and bedtime Insulin Campbell, Disposable, (BD ULTRA-FINE FOZIA PEN NEEDLE) 32 [...] once daily. For 30 days multivitamin-folic acid-biotin (RHBL-AATR-RSUNE, EI-MG-DAWOWE,) 400-2,000 mcg tab Take by mouth. collagen, bovine, 100 % powd Apply to affected area. Cranberry-Vitamin C-Vitamin E (CRANBERRY PLUS VITAMIN C) 140-100 mg cap Patient takes Cranberry with Vitamin C capsule that contains 15,000 mg Cranberry and 100mg Vitamin C Biotin 2,500 mcg cap Nurse reports patient taking 1500 mcg dose once daily (cannot find 1500mcg dose on menu) Miscellaneous Medical Supply [facility] [employer] (E08.40, Z79.4) [...] cardiology. - not yet scheduled unless going elsewhere/[facility]. Please wear supportive shoe wear and let your interlibrary loan services librarian know if you are not continuing to have ankle or foot discomfort. Clarence Berry APRN.CNS Medical Decision Making: Problems: Moderate: 1+ chronic illnesses with change Data: Unique test(s) ordered: 2 Medical Decision Making Level: 3 - Low documented in this encounter [facility] 01-15-2024 Telephone encounter Note The following approved medication requests have been transmitted electronically. Requested Prescriptions Signed Prescriptions Disp Refills LORazepam (ATIVAN) 1 mg tablet 30 tablet 2 Sig: Take 0.5-1 tablets by mouth once daily as needed for up to 90 days. Authorizing Provider: ALICIA BLOUNT MD [facility] 01-15-2024 Miscellaneous Notes The following approved medication [...] you. Marisol Escobedo. documented in this encounter [facility] 01-14-2024 Telephone encounter Note Patient has been [...] 01/31/2024 Please advise. Thank you. Marisol Escobedo. [facility] 12-24-2023 Note Addended by: CLARENCE BERRY on: 12/24/2023 12:33 PM Modules accepted: Orders [facility] 12-24-2023 Miscellaneous Notes Addended by: CLARENCE BERRY [...] you. Nargis Escobedo. documented in this encounter [facility] 12-24-2023 Telephone encounter Note Patient has been [...] 01/31/2024 Please advise. Thank you. Nargis Escobedo. [facility] 12-11-2023 Telephone encounter Note Patient given results and verbalized understanding of instructions given. Kasandra Cast LPN [facility] 12-11-2023 Miscellaneous Notes Patient given results and verbalized understanding of instructions given. Kasandra Cast LPN Urine culture reveals bacterial growth. The ATB selected is appropriate. Please complete. Follow up with PCP for continued sx. Please advise patient. documented in this encounter [facility] 12-11-2023 Telephone encounter Note Urine culture reveals bacterial growth. The ATB selected is appropriate. Please complete. Follow up with PCP for continued sx. Please advise patient. 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 Dada Rodríguez. Mild cataract in L eye- no need for cataract surgery at this time. Continue to follow up the cataract. 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 At this time, we anticipate that [...] Lansoprazole, Macrobid [Nitrofurantoin Monohyd/M-Cryst], Metformin, Miconazole, Neosporin [Kfxukmix-Juvkgtpvyt-Kmzuuairi], Pioglitazone, Protonix [Pantoprazole], Relafen [Nabumetone], Shrimp, and [...] for 180 days. Morning and bedtime Insulin Campbell, Disposable, (BD ULTRA-FINE FOZIA PEN NEEDLE) 32 [...] once daily. For 30 days multivitamin-folic acid-biotin (YOON-XZJO-ZUBBC, MU-LV-PJYYYR,) 400-2,000 mcg tab Take by mouth. collagen, [...] Antoinette Agrawal APRN.NEMESIO documented in this encounter [facility] 10-01-2023 History of Presen t illness Narrative This note was created using DrFirstriter. 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 Dada Rodríguez. Mild cataract in L eye- no need for cataract surgery at this time. Continue to follow up the cataract. 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 At this time, we anticipate that [...] assistance with chest tube to [facility]. Return to [facility] on Sunday11/18/14 [...] for 180 days. Morning and bedtime Insulin Campbell, Disposable, (BD ULTRA-FINE FOZIA PEN NEEDLE) 32 [...] once daily. For 30 days multivitamin-folic acid-biotin (VXMC-NNWR-GMHKK, MR-JI-ILIKXD,) 400-2,000 mcg tab Take by mouth. collagen, [...] 1500mcg dose on menu) Miscellaneous Medical Supply [facility] [employer] (E08.40, Z79.4) [...] Abs Lymph 1.00 - 4.00 k/uL 1.79 [place]% % 10.0 Abs [place] <0.87 k/uL 0.60 Eosin% % 4.0 Abs [...] 1. 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 HGBA1c, CMP, CBC, and lipd panel were previously ordered. Patient is waiting at lab now. Please advise. documented in this encounter [facility] 07-21-2023 Miscellaneous Notes Spoke with pt and [...] Rupali Muñoz Pss documented in this encounter [facility] 07-02-2023 History of Presen t illness Narrative [...] Type 1 (Hcc) She was admitted to [facility] June 10 through June 12 for sepsis [...] and OT evaluation along with social media editor prior to discharge. Continued on Glucerna shakes with meals for increased nutrition until taking oral consistently better. Discharged to SNF. Admit TCU 06/13/2023 to 06/20/2023 for rehabilitation prior to discharge home. She has [facility] home health care. There was a [...] seeing an orthopedic provider for ta pain, [facility] where she has gone before. Notes she did have an injury from a fingernail in this area remotely. Has appointment with Dr Don tomorrow. Followed by Dr Munguia [facility] regarding DM, has July appointment. Last 14 [...] Genny Munguia refjere) Also has SSI. Insulin Campbell, Disposable, (BD ULTRA-FINE FOZIA PEN NEEDLE) 32 [...] once daily. For 30 days multivitamin-folic acid-biotin (XXOP-YXTR-QTGPY, KL-EY-AETEOE,) 400-2,000 mcg tab Take by mouth. Insulin Campbell, Disposable, (EASY TOUCH) 31 gauge x 3/16 Use 1 needle for each dose. 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 Dada Rodríguez. Mild cataract in L eye- no need for cataract surgery at this time. Continue to follow up the cataract. 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 At this time, we anticipate that [...] care for assistance [facility]. Return to [facility] on Sunday11/18/[address] [...] Abs Lymph 1.00 - 4.00 k/uL 1.79 [place]% % 10.0 Abs [place] <0.87 k/uL 0.60 Eosin% % 4.0 Abs [...] 799.3, ICD10: R53.81 (primary diagnosis) Admission TCU, [facility] following RN, PT Endorse walking hourly with [...] 4 - Moderate documented in this encounter [facility] 06-29-2023 Miscellaneous Notes Can review medications at [...] problems may continue unchanged. Isabella nurse @ [facility] calling with plan of care. Nursing [...] If medication change, please call Isabella @ [phone]. Jaqueline Jones RN documented in this encounter [facility] 06-29-2023 Miscellaneous Notes Noted, rosina Yury PT @ [facility] calling with plan of care. PT will see patient 2 x/week for three weeks for functional mobility. If agree, no call back needed. Jaqueline Jones RN documented in this encounter [facility] 06-06-2023 Note HNO ID: [id number] Author: Simran Ritchie RN Service: Nursing Author Type: Registered Nurse Type: Nursing Progress Note Filed: 06/06/2023 11:19 AM Note Text: Other: pt ready for OR, call light in reach, called to bedside. [facility] 06-06-2023 History and physical note Images from the original note were not included. 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 Dada Rodríguez. Mild cataract in L eye- no need for cataract surgery at this time. Continue to follow up the cataract. 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 At this time, we anticipate that [...] 1 tablet by mouth once daily. Insulin Campbell, Disposable, (BD ULTRA-FINE FOZIA PEN NEEDLE) 32 [...] once daily. For 30 days multivitamin-folic acid-biotin (CILE-PEKY-RRRQQ, [place]-IT-QZLAJR,) 400-2,000 mcg tab Take by mouth. CRANBERRY collagen, bovine, 100 % powd Apply to affected area. Insulin Campbell, Disposable, (EASY TOUCH) 31 gauge x 3/16 Use 1 needle for each dose. 4x daily Cranberry-Vitamin C-Vitamin E (CRANBERRY PLUS VITAMIN C) 140-100 mg cap Patient takes Cranberry with Vitamin C capsule that contains 15,000 mg Cranberry and 100mg Vitamin C Biotin 2,500 mcg cap Nurse reports patient taking 1500 mcg dose once daily (cannot find 1500mcg dose on menu) Miscellaneous Medical Supply [facility] [employer] (E08.40, Z79.4) [...] Iodine, Lansoprazole, Macrobid [Nitrofurantoin Monohyd/M-Cryst], Metformin, Neosporin [Ugixljfn-Dfrdmfoplr-Comyhntyq], Protonix [Pantoprazole], Relafen [Nabumetone], Shrimp, and Actos [...] entered by the nurse and reviewed by nv Nursing Notes: Debra Couch RN 06/04/2023 10:04 [...] will be scheduled for the procedure at [facility]. She chooses to have procedure done [...] TIME: 11:56 AM documented in this encounter [facility] 06-06-2023 Nurse Note Other: pt ready for OR, call light in reach, called to bedside. documented in this encounter [facility] 06-05-2023 Miscellaneous Notes Pt called and is [...] high than low. 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 Dada Rodríguez. Mild cataract in L eye- no need for cataract surgery at this time. Continue to follow up the cataract. 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 At this time, we anticipate that [...] 1 tablet by mouth once daily. Insulin Campbell, Disposable, (BD ULTRA-FINE FOZIA PEN NEEDLE) 32 [...] once daily. For 30 days multivitamin-folic acid-biotin (CKDA-OUIZ-YPNCY, KV-OR-XVQFSB,) 400-2,000 mcg tab Take by mouth. CRANBERRY collagen, bovine, 100 % powd Apply to affected area. Insulin Campbell, Disposable, (EASY TOUCH) 31 gauge x 3/16 Use 1 needle for each dose. 4x daily Cranberry-Vitamin C-Vitamin E (CRANBERRY PLUS VITAMIN C) 140-100 mg cap Patient takes Cranberry with Vitamin C capsule that contains 15,000 mg Cranberry and 100mg Vitamin C Biotin 2,500 mcg cap Nurse reports patient taking 1500 mcg dose once daily (cannot find 1500mcg dose on menu) Miscellaneous Medical Supply [facility] [employer] (E08.40, Z79.4) [...] Iodine, Lansoprazole, Macrobid [Nitrofurantoin Monohyd/M-Cryst], Metformin, Neosporin [Ggzlcmmp-Imknxpjhtv-Ywozuefnt], Protonix [Pantoprazole], Relafen [Nabumetone], Shrimp, and Actos [...] entered by the nurse and reviewed by nv Nursing Notes: Debra Couch RN 06/04/2023 10:04 [...] will be scheduled for the procedure at [facility]. She chooses to have procedure done [...] Radha Balderrama MD documented in this encounter [facility] 06-04-2023 Nurse Note REVIEW OF SYSTEMS: General: [...] Debra Couch RN documented in this encounter [facility] 05-31-2023 Instructions Clarence Berry APRN.[facility] - 05/31/2023 9:53 AM EDT Consider vaccines: Tdap, influenza, Covid booster, hepatitis B vaccine. 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 Due for EGD in 2023 or 2024. documented in this encounter [facility] 05-31-2023 History of Presen t illness Narrative [...] yet had infusion. Followed by Dr Bran printed circuit boards laminator. History of carcinoid bronchial adenoma, left, s/p [...] No sensory deficit. Motor: No weakness. Coordination: Biezjy-Kgpj-Favffz Test normal. Gait: Gait normal. ALLERGIES Allergen [...] 1 tablet by mouth once daily. Insulin Campbell, Disposable, (BD ULTRA-FINE FOZIA PEN NEEDLE) 32 [...] once daily. For 30 days multivitamin-folic acid-biotin (HRIA-VXQD-SRUKY, UM-PX-YLINDD,) 400-2,000 mcg tab Take by mouth. CRANBERRY collagen, bovine, 100 % powd Apply to affected area. Insulin Campbell, Disposable, (EASY TOUCH) 31 gauge x 3/16 Use 1 needle for each dose. 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 Dada Rodríguez. Mild cataract in L eye- no need for cataract surgery at this time. Continue to follow up the cataract. 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 At this time, we anticipate that [...] assistance with chest tube to [facility]. Return to [facility]PD on Sunday11/18/14 [...] Abs Lymph 1.00 - 4.00 k/uL 1.79 [place]% % 10.0 Abs [place] <0.87 k/uL 0.60 Eosin% % 4.0 Abs [...] C7A.090 Stable, no recent exacerbation. Followed by printed circuit boards laminator 3. Encounter for immunization - ICD9: V03.89, ICD10: Z23 - RSV PRINTED PHARMACY INSTRUCTIONS - TDAP PRINTED PHARMACY INSTRUCTIONS - INFLUENZA VACCINE, PRSV FREE, AGE 65+ YR, HIGH DOSE, QUADRIVALENT (FLUZONE HIGH-DOSE) - Ducatt COVID-19 VACCINE ( SEASON) AGE 12+ YR [...] 4 - Moderate documented in this encounter [facility] 04-08-2023 Instructions Navya Thrasher APRN.CNP - 04/08/2023 12:58 PM EDT For ear pain- Flonase nasal spray daily. Can also take over the counter analgesics such as Tylenol or ibuprofen unless you have been told otherwise documented in this encounter [facility] 04-08-2023 History of Presen t illness Narrative [...] Navya Thrasher APRN.CNP documented in this encounter [facility] 04-06-2023 Miscellaneous Notes Spoke with pt and [...] approved to continue Call back at phone [phone] Pt called to let you know her [...] Chelsy Valverde LPN documented in this encounter [facility] 02-08-2023 Miscellaneous Notes Duplicate request. [place] Muro [...] advise. ARTURO Silva documented in this encounter [facility] 01-25-2023 Miscellaneous Notes Orders placed as requested. Quiana Thrasher APRN.NEMESIO Pt at [facility] now lab orders due. Please file. Pt has appt 01/29/23 with pcp documented in this encounter [facility] 01-01-2023 History of Presen t illness Narrative [...] 2023 11:34 AM documented in this encounter [facility] 10-17-2022 History of Presen t illness Narrative [...] head on the floor. Notes jaw and cheondoism hurt. Impression was no sign of fracture [...] taking naproxen or Tylenol currently. Has used Mansfield intermittently which has helped with pain. She [...] her arms. Celebrex does help. Does use [place] as needed for breakthrough pain. Using pressure [...] No sensory deficit. Motor: No weakness. Coordination: Cuekej-Vtnd-Sriodq Test normal. Gait: Gait normal. ALLERGIES Allergen [...] mouth once daily.^Disp: 90 tablet^Rfl: 3 Insulin Campbell, Disposable, (BD ULTRA-FINE FOZIA PEN NEEDLE) 32 [...] daily. 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 Dada Rodríguez. Mild cataract in L eye- no need for cataract surgery at this time. Continue to follow up the cataract. 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 At this time, we anticipate that [...] MG-ACETAMINOPHEN 325 MG TABLET 3. Contusion of cheondoism region, initial encounter - ICD9: 920, ICD10: [...] arousable. Improved pain control with Celebrex and Mansfield for breakthrough. Vrzd-gdt-jfqckuo constipation remedy advised when taking hydrocodone. She defers physical therapy for now, prefers to see a chiropractor first. ER for any severe or concerning symptoms Clarence Berry APRN.DRUPAL PHP DEVELOPER Medical Decision Making: Problems: Moderate: Acute illness with systemic symptoms Risk: Moderate: Drug management Medical Decision Making Level: 4 - Moderate documented in this encounter [facility] 10-11-2022 Miscellaneous Notes Ana Ivory Star[place]: [id number] - GISELE - Rx #: [id number] help? Call us at [employer] [place] Case: [id number], Status: Approved, Coverage Starts on: 08/13/2022 12:00:00 AM, Coverage Ends on: 08/12/2023 12:00:00 AM. Questions? Contact . Pharmacy notified. Ana Ivory (Star[place]: [email or web address]) - [id number] HYDROcodone-Acetaminophen 5-325MG tablets Status: PA Request Created: October 10, 2022 [id number] Sent: October 11, 2022 documented in this encounter [facility] 10-10-2022 History of Presen t illness Narrative [...] 2022 2:32 PM documented in this encounter [facility] 10-10-2022 History of Presen t illness Narrative [...] head on the floor. Notes jaw and cheondoism hurt. Impression was no sign of fracture [...] taking naproxen or Tylenol currently. Has used [place] intermittently which has helped with pain. She [...] No sensory deficit. Motor: No weakness. Coordination: Kpvbbi-Filx-Sbgexl Test normal. Gait: Gait normal. ALLERGIES Allergen [...] mouth once daily.^Disp: 90 tablet^Rfl: 3 Insulin Campbell, Disposable, (BD ULTRA-FINE FOZIA PEN NEEDLE) 32 [...] daily. 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 Dada Rodríguez. Mild cataract in L eye- no need for cataract surgery at this time. Continue to follow up the cataract. 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 At this time, we anticipate that [...] MG-ACETAMINOPHEN 325 MG TABLET 3. Contusion of cheondoism region, initial encounter - ICD9: 920, ICD10: [...] needed for breakthrough pain and at bedtime. Yxlp-oog-soohskj constipation remedy advised when taking hydrocodone. ER for any severe or concerning symptoms Clarence Berry APRN.DRUPAL PHP DEVELOPER Medical Decision Making: Problems: Moderate: Acute illness with systemic symptoms Data: Unique test(s) ordered: 1 Risk: Moderate: Drug management Medical Decision Making Level: 4 - Moderate documented in this encounter [facility] 09-30-2022 Instructions Alicia Blount MD - 09/30/2022 10:36 AM EST Decrease supper time insulin since having lows under 70--try decreasing to 20 units then titrate back up if sugar going over 180 at bedtime. Goal in AM is sugar under 150. Nonfasting sugars--under 180 documented in this encounter [facility] 09-30-2022 History of Presen t illness Narrative Images from the original note were not included. This note was created using [employer]. Subjective Ana Ivory is a 82 year [...] floor. Right side of jaw hurts and cheondoism. Hurts a little to chew. 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 Dada Rodríguez. Mild cataract in L eye- no need for cataract surgery at this time. Continue to follow up the cataract. 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 At this time, we anticipate that [...] mouth daily at bedtime. As directed Insulin Campbell, Disposable, (BD ULTRA-FINE FOZIA PEN NEEDLE) 32 [...] once daily. For 30 days multivitamin-folic acid-biotin (WQEE-YEHG-UBEVW, GS-RC-BDRVFP,) 400-2,000 mcg tab Take by mouth. CRANBERRY collagen, bovine, 100 % powd Apply to affected area. insulin glargine (LANTUS SOLOSTAR U-100 INSULIN) 100 unit/mL (3 mL) Inject 18 Units subcutaneously daily at bedtime. (Dr. Genny funes) (Patient taking differently: Inject 20 Units subcutaneously daily at bedtime. (Dr. Genny funes)) Insulin Campbell, Disposable, (EASY TOUCH) 31 gauge x 3/16 [...] taking: No sig reported) Miscellaneous Medical Supply [facility] [employer] (E08.40, Z79.4) [...] with long-term current use of insulin ([facility]) E08.40 Z79.4 2. Contusion of right foot, initial encounter S90.31XA HYDROcodone-acetaminophen (NORCO) 5-325 mg per tablet plantar toes 3. Contusion of cheondoism region, initial encounter S00.83XA HYDROcodone-acetaminophen (NORCO) 5-325 [...] the date of the service which included yctr-ga-vjng patient care, completing clinical documentation, obtaining and/or reviewing separately obtained history, performing a medically appropriate examination, counseling and educating the patient/family/caregiver, ordering medications, tests, or procedures, and communicating results to the patient/family/caregiver. Alicia Blount MD documented in this encounter [facility] 08-21-2022 Miscellaneous Notes Patient notified of below [...] before next appointment. documented in this encounter [facility] 08-15-2022 Procedure note [facility] 08-02-2022 Miscellaneous Notes Filed order Patient is at [facility] today requesting lab orders. Lab is stating they are not able to pull these order until NEXT July. Please review and file. documented in this encounter [facility] 06-28-2022 Miscellaneous Notes Spoke with pt and [...] this medication sent to [facility] in [place]. Please call patient when complete. Patient is requesting to go back on the Gabapentin rather then refill the lyrica. She states she was on the lyrica for some time switched to the gabapentin and then back to the lyrica but feels gabapentin does better. She uses [facility] in [place]. documented in this encounter [facility] 06-16-2022 Miscellaneous Notes Faxed ECHO results to Dr. Bran, [facility] Pulm ([phone]), and Dr. Munguia, [facility] Endo ([phone]) per patient request. documented in this encounter [facility] 06-16-2022 Miscellaneous Notes Patient has been identified [...] Eris Keene RN documented in this encounter [facility] 05-31-2022 Miscellaneous Notes Noted Patient returned call and went over notes below from Dr Blount, Printed copy of ECHO and faxed to Dr Bran [phone] genny Munguia [phone]. Patient said she will see what those [...] ejection fraction. If she prefers to see director hris [facility], can go to [facility] since goes to providers at [facility] already. If she has had no acute changes in SOB or swelling and wants to wait to discuss at July appointment, that is fine too unless Dr. Munguia or Dr. Bran think she needs work up sooner than then. Patient calling she had appt today with Dr Genny Munguia ,[facility]. Dr Munguia wanted patient to call [...] done? Please advise documented in this encounter [facility] 05-17-2022 Miscellaneous Notes Patient notified.Suma Shepard LPN Let patient know their covid19/influenza test was negative. documented in this encounter [facility] 05-16-2022 Instructions Kaci Savage APRN.NEMESIO - 05/16/2022 11:04 AM EDT ASSESSMENT/PLAN: 1. [...] virtual appointment or schedule an appointment with [facility]. - Follow-up with your PCP in 3-5 days if symptoms have not improved or sooner if symptoms worsen - Discussed red flags and need for immediate medical evaluation if any occur. - Discussed supportive care treatment with fluids, rest and analgesia. - Discussed expected course of illness Kaci Savage APRN.DRIER ATTENDANT Beginning Home Isolation Isolation is used to [...] to your local emergency facility: Notify the casting machine service operator that you are seeking care for [...] concerning to you. 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 Dada Rodríguez. Mild cataract in L eye- no need for cataract surgery at this time. Continue to follow up the cataract. 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 At this time, we anticipate that [...] assistance with chest tube to [facility]. Return to [facility]PD on Sunday11/18/14 [...] Iodine, Lansoprazole, Macrobid [Nitrofurantoin Monohyd/M-Cryst], Metformin, Neosporin [Niqicfga-Efalpvzklw-Aelsttftp], Protonix [Pantoprazole], Relafen [Nabumetone], Shrimp, and Actos [...] daily. For 30 days^Disp: ^Rfl: multivitamin-folic acid-biotin (YQQY-IVGR-PYWSS, GS-BL-UCXAAV,) 400-2,000 mcg tab^Take by mouth.^Disp: ^Rfl: CRANBERRY^ ^Disp: ^Rfl: collagen, bovine, 100 % powd^Apply to affected area.^Disp: ^Rfl: Insulin Campbell, Disposable, (EASY TOUCH) 31 gauge x 3/16^Use [...] virtual appointment or schedule an appointment with [facility]. - Follow-up with your PCP in 3-5 days if symptoms have not improved or sooner if symptoms worsen - Discussed red flags and need for immediate medical evaluation if any occur. - Discussed supportive care treatment with fluids, rest and analgesia. - Discussed expected course of illness Kaci Savage APRN.NEMESIO documented in this encounter [facility] 05-15-2022 Miscellaneous Notes PATIENT NOTIFIED OF SAME. [...] Jaqueline Jones RN documented in this encounter [facility] 05-02-2022 History of Presen t illness Narrative [...] daily. For 30 days^Disp: ^Rfl: multivitamin-folic acid-biotin (JUHH-WQBE-ROUAO, TD-JJ-HYLZOY,) 400-2,000 mcg tab^Take by mouth.^Disp: ^Rfl: CRANBERRY^ ^Disp: ^Rfl: collagen, bovine, 100 % powd^Apply to affected area.^Disp: ^Rfl: insulin glargine (LANTUS SOLOSTAR U-100 INSULIN) 100 unit/mL (3 mL)^Inject 18 Units subcutaneously daily at bedtime. (Dr. Genny Munguia refjere)^Disp: ^Rfl: (Patient taking differently: Inject 20 Units subcutaneously daily at bedtime. (Dr. 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 Dada Rodríguez. Mild cataract in L eye- no need for cataract surgery at this time. Continue to follow up the cataract. 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 At this time, we anticipate that [...] care for assistance with chest tube to [facility]. Return to [facility] on Sunday11/18/[address] [...] Osteoporosis Less than or equal to -2.5 Marine Fire Fighter: ABHILASH Transcribe Date/Time: Apr 03 2022 12:29P Dictated by : JORDYN WOLF MD This examination was interpreted and the report reviewed and electronically signed by: JORDYN WOLF MD on Apr 03 2022 12:29PM EST Results-Findings * * *Final Report* * * DATE OF EXAM: Apr 03 2022 9:58AM [facility] 0804 - BD DXA - AXIAL [...] 4 - Moderate documented in this encounter [facility] 05-02-2022 Instructions Clarence Berry APRN.CNS - 05/02/2022 12:25 PM EDT Check with your insurance regarding coverage of prolia or reclast for osteoporosis documented in this encounter [facility] 04-19-2022 Miscellaneous Notes Spoke with pt and information listed below given. Pt verbalizes understanding. Results were given. Pt requested an apt to discuss medication options. Pt requested a copy of report and results be mailed to her. Done. Chelsy Valverde LPN See my result note Pt calling for Bone Density results. Please advise pt. Chelsy Valverde LPN documented in this encounter [facility] 04-03-2022 History of Presen t illness Narrative [...] 2022 9:30 AM documented in this encounter [facility] 03-31-2022 Instructions Alicia Blount MD - 03/31/2022 [...] usual activities immediately. documented in this encounter [facility] 03-31-2022 History of Presen t illness Narrative This note was created using [employer]. 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 Dada Rodríguez. Mild cataract in L eye- no need for cataract surgery at this time. Continue to follow up the cataract. 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 At this time, we anticipate that [...] once daily. For 30 days multivitamin-folic acid-biotin (NNRD-FHEC-KGMBH, EJ-QP-KLKWCM,) 400-2,000 mcg tab Take by mouth. CRANBERRY [...] 1 tablet by mouth once daily. Insulin Campbell, Disposable, (EASY TOUCH) 31 gauge x 3/16 [...] Alicia Blount MD documented in this encounter [facility] 01-30-2022 Instructions Anu Pablo PA-C - 01/30/2022 [...] or other healthcare professional such as an racehorse trainer may be all that is necessary [...] has gone away. 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 Dada Rodríguez. Mild cataract in L eye- no need for cataract surgery at this time. Continue to follow up the cataract. 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 At this time, we anticipate that [...] assistance with chest tube to [facility]. Return to OPD on Sunday11/18/14 [...] Iodine, Lansoprazole, Macrobid [Nitrofurantoin Monohyd/M-Cryst], Metformin, Neosporin [Hnrzkcwz-Ymxghvkseh-Rjvhfvcdh], Protonix [Pantoprazole], Relafen [Nabumetone], Shrimp, and Actos [...] once daily. For 30 days multivitamin-folic acid-biotin (RUQD-QDGW-QOBZU, SY-WB-RMJMAC,) 400-2,000 mcg tab Take by mouth. CRANBERRY collagen, bovine, 100 % powd Apply to affected area. insulin glargine (LANTUS SOLOSTAR U-100 INSULIN) 100 unit/mL (3 mL) Inject 18 Units subcutaneously daily at bedtime. (Dr. Genny funes) (Patient taking differently: Inject 20 Units subcutaneously daily at bedtime. (Dr. Genny funes) ) sertraline (ZOLOFT) 50 mg tablet Take 1 tablet by mouth once daily. Insulin Campbell, Disposable, (EASY TOUCH) 31 gauge x 3/16 [...] by mouth twice daily. Miscellaneous Medical Supply [facility] [employer] (E08.40, Z79.4) [...] Anu Pablo PA-C documented in this encounter [facility] 01-13-2022 Miscellaneous Notes Pt called and is [...] Coby Reynolds RN documented in this encounter [facility] 01-08-2022 Miscellaneous Notes Okayed Patient has been identified by name and date of : Yes Last office visit in this department: 12-02 RX INSTRUCTIONS: Patient aware RX will be sent to pharmacy. No need to notify patient. Patient phones requesting refills as follows: No medications selected for refill. Please review and advise. Meche James documented in this encounter [facility] 01-02-2022 Miscellaneous Notes Patient has been identified [...] advise. Clara Richmond documented in this encounter [facility] 12-21-2021 Nurse Note 0907 pt to [facility]U, up to BR, incontinent of stool. Jennifer care and new brief given. Pt ambulates with assist. updated & @ BS. documented in this encounter [facility] 12-21-2021 History and physical note CHIEF COMPLAINT: [...] for internal providers or letter via the [employer] for external providers. 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 Dada Rodríguez. Mild cataract in L eye- no need for cataract surgery at this time. Continue to follow up the cataract. 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 At this time, we anticipate that [...] once daily. For 30 days multivitamin-folic acid-biotin (WWRG-UHFE-YQANS, NP-LL-ZBOWMP,) 400-2,000 mcg tab Take by mouth. collagen, [...] tablet by mouth once daily. CRANBERRY Insulin Campbell, Disposable, (EASY TOUCH) 31 gauge x 3/16 [...] daily. (Dr Don) Miscellaneous Medical Supply [facility] [employer] (E08.40, Z79.4) [...] Education Completed: Not specified Marital Status: to [facility] with 4 children SOCIAL HISTORY Social History [...] with more than 50% of the total mxor-qw-dslr time of the visit in counseling / coordination of care. I have confirmed and edited as necessary, the PFSH and ROS obtained by others. June Limon APRN.DRIER ATTENDANT UPDATED HISTORY AND PHYSICAL EXAMINATION SERVICE DATE: [...] TIME: 7:10 AM documented in this encounter [facility] 12-13-2021 Miscellaneous Notes Patient was updated, seen [...] Coby Reynolds RN documented in this encounter [facility] 12-01-2021 Miscellaneous Notes PDMP website checked and [...] Libertad Burdick Pss documented in this encounter [facility] 11-22-2021 Instructions Alicia Blount MD - 11/22/2021 1:28 PM EDT Probiotics: Align, Culturelle, Florastor documented in this encounter [facility] 11-22-2021 History of Presen t illness Narrative This note was created using [employer]. Subjective Ana Ivory is a 81 year [...] Covid Booster #2 Swelling even with stockings. [place] better but still would get tight. No prior water pills. Had episode of leaking when jeans caused thinned area and legs swollen. On SSI now. Reflux noted. Has adjustable bed. 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 Dada Rodríguez. Mild cataract in L eye- no need for cataract surgery at this time. Continue to follow up the cataract. 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 At this time, we anticipate that [...] once daily. For 30 days multivitamin-folic acid-biotin (FKOG-BDRY-QIDOL, VF-XZ-PVKLMI,) 400-2,000 mcg tab Take by mouth. collagen, bovine, 100 % powd Apply to affected area. atorvastatin (LIPITOR) 20 mg tablet Take 1 tablet by mouth once daily. insulin glargine (LANTUS SOLOSTAR U-100 INSULIN) 100 unit/mL (3 mL) Inject 18 Units subcutaneously daily at bedtime. (Dr. Genny Munguia refills) sertraline (ZOLOFT) 50 mg tablet Take 1 tablet by mouth once daily. Insulin Campbell, Disposable, (EASY TOUCH) 31 gauge x 3/16 [...] Alicia Blount MD documented in this encounter [facility] 06-03-2021 History of Presen t illness Narrative [...] 2021 12:54 PM documented in this encounter [facility] 11-14-2014 History of Past i llness Narrative [...] Overview: Ana Ivory is and lives in [place]. At this time, we anticipate that [...] assistance with chest tube to [facility]. Return to [facility] on Sunday11/18/[address] removal . Esophageal reflux 10/08/2014 10/08/2014 Cataract 04/17/2013 09/15/2016 Overview: [facility], Dr. Dada Rodríguez. Mild cataract in L [...] of this encounter (statuses as of 12/01/2021) [facility] History of Past illness Narrative* Problem Noted [...] Overview: Ana Ivory is and lives in [place]. At this time, we anticipate that [...] reflux 10/08/2014 10/08/2014 Cataract 04/17/2013 09/15/2016 Overview: [facility], Dr. Dada Rodríguez. Mild cataract in L [...] of this encounter (statuses as of 12/13/2021) [facility] History of Past illness Narrative* Problem Noted [...] Overview: Ana Ivory is and lives in [place]. At this time, we anticipate that [...] assistance with chest tube to [facility]. Return to [facility]PD on Sunday11/18/[address] removal . Esophageal reflux 10/08/2014 10/08/2014 Cataract 04/17/2013 09/15/2016 Overview: [facility], Dr. Dada Rodríguez. Mild cataract in L [...] of this encounter (statuses as of 12/22/2021) [facility] History of Past illness Narrative* Problem Noted [...] Overview: Ana Ivory is and lives in [place]. At this time, we anticipate that [...] care for assistance with chest tube to [facility]. Return to [facility]PD on Sunday11/18/[address] . Esophageal reflux 10/08/2014 10/08/2014 Cataract 04/17/2013 09/15/2016 Overview: [facility], Dr. Dada Rodríguez. Mild cataract in L [...] of this encounter (statuses as of 01/02/2022) [facility] History of Past illness Narrative* Problem Noted [...] Overview: Ana Ivory is and lives in [place]. At this time, we anticipate that [...] care for assistance with chest tube to [facility]. Return to [facility]PD on Sunday11/18/[address] . Esophageal reflux 10/08/2014 10/08/2014 Cataract 04/17/2013 09/15/2016 Overview: [facility], Dr. Dada Rodríguez. Mild cataract [...] of this encounter (statuses as of 01/08/2022) [facility] History of Past illness Narrative* Problem Noted [...] Overview: Ana Ivory is and lives in [place]. At this time, we anticipate that [...] reflux 10/08/2014 10/08/2014 Cataract 04/17/2013 09/15/2016 Overview: [facility], Dr. Dada Rodríguez. Mild cataract in L [...] of this encounter (statuses as of 01/13/2022) [facility] History of Past illness Narrative* Problem Noted [...] ambulation . DISPOSITION AND FOLLOW-UP 11/11/20142016 Overview: nAa Ivory is and lives in [place]. At this time, we anticipate that [...] assistance with chest tube to [facility]. Return to [facility]PD on Sunday11/18/[address] . Esophageal reflux 10/08/2014 10/08/2014 Cataract 04/17/2013 09/15/2016 Overview: [facility], Dr. Dada Rodríguez. Mild cataract in L [...] of this encounter (statuses as of 01/30/2022) [facility] History of Past illness Narrative* Problem Noted [...] Overview: Ana Ivory is and lives in [place]. At this time, we anticipate that [...] assistance with chest tube to [facility]. Return to OPD on Sunday11/18/[address] . Esophageal reflux 10/08/2014 10/08/2014 Cataract 04/17/2013 09/15/2016 Overview: [facility], Dr. Dada Rodríguez. Mild cataract [...] of this encounter (statuses as of 02/05/2022) [facility] History of Past illness Narrative* Problem Noted [...] Overview: Ana Ivory is and lives in [place]. At this time, we anticipate that [...] care for assistance with chest tube to [facility]. Return to [facility]PD on Sunday11/18/[address] . Esophageal reflux 10/08/2014 10/08/2014 Cataract 04/17/2013 09/15/2016 Overview: [facility], Dr. Dada Rodríguez. Mild cataract [...] of this encounter (statuses as of 04/04/2022) [facility] History of Past illness Narrative* Problem Noted [...] Overview: Ana Ivory is and lives in [place]. At this time, we anticipate that [...] reflux 10/08/2014 10/08/2014 Cataract 04/17/2013 09/15/2016 Overview: [facility], Dr. Dada Rodríugez. Mild cataract in L eye- no need [...] of this encounter (statuses as of 04/19/2022) [facility]2015 History of Past illness Narrative* Problem Noted [...] Overview: Ana Ivory is and lives in [place], [place]. At this time, we anticipate that [...] reflux 10/08/2014 10/08/2014 Cataract 04/17/2013 09/15/2016 Overview: [facility], Dr. Dada Rodríguez. Mild cataract in L [...] of this encounter (statuses as of 05/02/2022) [facility]04-04-2015 History of Past illness Narrative* Problem Noted [...] Overview: Ana Ivory is and lives in [place], [place]. At this time, we anticipate that [...] care for assistance with chest tube to [facility]. Return to [facility] on Sunday11/18/[address] removal . Esophageal reflux 10/08/2014 10/08/2014 Cataract 04/17/2013 09/15/2016 Overview: [facility], Dr. Dada Rodríguez. Mild cataract in L [...] of this encounter (statuses as of 05/15/2022) [facility]-04[facility]2015 History of Past illness Narrative* Problem Noted [...] Overview: Ana Ivory is and lives in [place], [place]. At this time, we anticipate that [...] reflux 10/08/2014 10/08/2014 Cataract 04/17/2013 09/15/2016 Overview: [facility], Dr. Dada Rodríguez. Mild cataract in L [...] of this encounter (statuses as of 05/16/2022) [facility]2015 History of Past illness Narrative* Problem Noted [...] Overview: Ana Ivory is and lives in [place], [place]. At this time, we anticipate that [...] care for assistance with chest tube to [facility]. Return to [facility] on Sunday11/18/[address] removal . Esophageal reflux 10/08/2014 10/08/2014 Cataract 04/17/2013 09/15/2016 Overview: [facility], Dr. Dada Rodríguez. Mild cataract in L [...] of this encounter (statuses as of 05/17/2022) [facility]2015 History of Past illness Narrative* Problem Noted [...] Overview: Ana Ivory is and lives in [place]. At this time, we anticipate that [...] care for assistance with chest tube to [facility]. Return to [facility] on Sunday11/18/[address] removal . Esophageal reflux 10/08/2014 10/08/2014 Cataract 04/17/2013 09/15/2016 Overview: [facility], Dr. Dada Rodríguez. Mild cataract in L [...] of this encounter (statuses as of 05/30/2022) [facility]2015 History of Past illness Narrative* Problem Noted [...] Overview: Ana Ivory is and lives in [place]. At this time, we anticipate that [...] assistance with chest tube to [facility]. Return to [facility] on Sunday11/18/[address] removal . Esophageal reflux 10/08/2014 10/08/2014 Cataract 04/17/2013 09/15/2016 Overview: [facility], Dr. Dada Rodríguez. Mild cataract in L [...] of this encounter (statuses as of 05/31/2022) [facility] History of Past illness Narrative* Problem Noted [...] Overview: Ana Ivory is and lives in [place], [place]. At this time, we anticipate that [...] reflux 10/08/2014 10/08/2014 Cataract 04/17/2013 09/15/2016 Overview: [facility], Dr. Dada Rodríguez. Mild cataract in L [...] of this encounter (statuses as of 06/16/2022) [facility]2015 History of Past illness Narrative* Problem Noted [...] Overview: Ana Ivory is and lives in [place]. At this time, we anticipate that [...] assistance with chest tube to [facility]. Return to [facility] on Sunday11/18/[address] removal . Esophageal reflux 10/08/2014 10/08/2014 Cataract 04/17/2013 09/15/2016 Overview: [facility], Dr. Dada Rodríguez. Mild cataract in L [...] of this encounter (statuses as of 06/16/2022) [facility] History of Past illness Narrative* Problem Noted [...] Overview: Ana Ivory is and lives in [place]. At this time, we anticipate that [...] reflux 10/08/2014 10/08/2014 Cataract 04/17/2013 09/15/2016 Overview: [facility], Dr. Dada Rodríguez. Mild cataract in L [...] of this encounter (statuses as of 06/28/2022) [facility]2015 History of Past illness Narrative* Problem Noted [...] Overview: Ana Ivory is and lives in [place]. At this time, we anticipate that [...] assistance with chest tube to [facility]. Return to [facility] on Sunday11/18/[address] removal . Esophageal reflux 10/08/2014 10/08/2014 Cataract 04/17/2013 09/15/2016 Overview: [facility], Dr. Dada Rodríguez. Mild cataract [...] of this encounter (statuses as of 08/02/2022) [facility]2015 History of Past illness Narrative* Problem Noted [...] Overview: Ana Ivory is and lives in [place]. At this time, we anticipate that [...] care for assistance with chest tube to [facility]. Return to [facility] on Sunday11/18/[address] removal . Esophageal reflux 10/08/2014 10/08/2014 Cataract 04/17/2013 09/15/2016 Overview: [facility], Dr. Dada Rodríguez. Mild cataract in L [...] of this encounter (statuses as of 08/23/2022) [facility]2015 History of Past illness Narrative* Problem Noted [...] Overview: Ana Ivory is and lives in [place]. At this time, we anticipate that [...] assistance with chest tube to [facility]. Return to [facility] on Sunday11/18/[address] removal . Esophageal reflux 10/08/2014 10/08/2014 Cataract 04/17/2013 09/15/2016 Overview: [facility], Dr. Dada Rodríguez. Mild cataract in L [...] of this encounter (statuses as of 09/30/2022) [facility] History of Past illness Narrative* Problem Noted [...] Overview: Ana Ivory is and lives in [place]. At this time, we anticipate that [...] care for assistance with chest tube to [facility]. Return to [facility] on Sunday11/18/[address] removal . Esophageal reflux 10/08/2014 10/08/2014 Cataract 04/17/2013 09/15/2016 Overview: [facility], Dr. Dada Rodríguez. Mild cataract in L [...] of this encounter (statuses as of 10/10/2022) [facility] History of Past illness Narrative* Problem Noted [...] Overview: Ana Ivory is and lives in [place]. At this time, we anticipate that [...] assistance with chest tube to [facility]. Return to [facility] on Sunday11/18/[address] removal . Esophageal reflux 10/08/2014 10/08/2014 Cataract 04/17/2013 09/15/2016 Overview: [facility], Dr. Dada Rodríguez. Mild cataract in L [...] of this encounter (statuses as of 10/12/2022) [facility]2015 History of Past illness Narrative* Problem Noted [...] Overview: Ana Ivory is and lives in [place]. At this time, we anticipate that [...] reflux 10/08/2014 10/08/2014 Cataract 04/17/2013 09/15/2016 Overview: [facility], Dr. Dada Rodríguez. Mild cataract [...] of this encounter (statuses as of 10/18/2022) [facility] History of Past illness Narrative* Problem Noted [...] Overview: Ana Ivory is and lives in [place]. At this time, we anticipate that [...] reflux 10/08/2014 10/08/2014 Cataract 04/17/2013 09/15/2016 Overview: [facility], Dr. Dada Rodríguez. Mild cataract in L [...] of this encounter (statuses as of 01/25/2023) [facility]2015 History of Past illness Narrative* Problem Noted [...] Overview: Ana Ivory is and lives in [place]. At this time, we anticipate that [...] care for assistance with chest tube to [facility]. Return to [facility] on Sunday11/18/[address] removal . Esophageal reflux 10/08/2014 10/08/2014 Cataract 04/17/2013 09/15/2016 Overview: [facility], Dr. Dada Rodríguez. Mild cataract in L [...] of this encounter (statuses as of 02/08/2023) [facility] History of Past illness Narrative* Problem Noted [...] Overview: Ana Ivory is and lives in [place]. At this time, we anticipate that [...] reflux 10/08/2014 10/08/2014 Cataract 04/17/2013 09/15/2016 Overview: [facility], Dr. Dada Rodríguez. Mild cataract in L [...] of this encounter (statuses as of 02/12/2023) [facility] History of Past illness Narrative* Problem Noted [...] Overview: Ana Ivory is and lives in [place]. At this time, we anticipate that [...] reflux 10/08/2014 10/08/2014 Cataract 04/17/2013 09/15/2016 Overview: [facility], Dr. Dada Rodríguez. Mild cataract in L [...] of this encounter (statuses as of 04/06/2023) [facility] History of Past illness Narrative* Problem Noted [...] Overview: Ana Ivory is and lives in [place]. At this time, we anticipate that [...] care for assistance with chest tube to [facility]. Return to [facility] on Sunday11/18/[address] removal . Esophageal reflux 10/08/2014 10/08/2014 Cataract 04/17/2013 09/15/2016 Overview: [facility], Dr. Dada Rodríguez. Mild cataract in L [...] of this encounter (statuses as of 04/08/2023) [facility] History of Past illness Narrative* Problem Noted [...] Overview: Ana Ivory is and lives in [place]. At this time, we anticipate that [...] assistance with chest tube to [facility]. Return to [facility] on Sunday11/18/[address] removal . Esophageal reflux 10/08/2014 10/08/2014 Cataract 04/17/2013 09/15/2016 Overview: [facility], Dr. Dada Rodríguez. Mild cataract in L [...] of this encounter (statuses as of 06/01/2023) [facility] History of Past illness Narrative* Problem Noted [...] Overview: Ana Ivory is and lives in [place]. At this time, we anticipate that [...] reflux 10/08/2014 10/08/2014 Cataract 04/17/2013 09/15/2016 Overview: [facility], Dr. Dada Rodríguez. Mild cataract in L [...] of this encounter (statuses as of 06/05/2023) [facility]2015 History of Past illness Narrative* Problem Noted [...] Overview: Ana Ivory is and lives in [place]. At this time, we anticipate that [...] care for assistance with chest tube to [facility]. Return to [facility] on Sunday11/18/[address] removal . Esophageal reflux 10/08/2014 10/08/2014 Cataract 04/17/2013 09/15/2016 Overview: [facility], Dr. Dada Rodríguez. Mild cataract in L [...] of this encounter (statuses as of 06/06/2023) [facility]2015 History of Past illness Narrative* Problem Noted [...] Overview: Ana Ivory is and lives in [place]. At this time, we anticipate that [...] care for assistance with chest tube to [facility]. Return to [facility] on Sunday11/18/[address] removal . Esophageal reflux 10/08/2014 10/08/2014 Cataract 04/17/2013 09/15/2016 Overview: [facility], Dr. Dada Rodríguez. Mild cataract [...] of this encounter (statuses as of 06/07/2023) [facility]2015 History of Past illness Narrative* Problem Noted [...] ambulation . DISPOSITION AND FOLLOW-UP 11/11/2014 Overview: Aan Ivory is and lives in [place]. At this time, we anticipate that [...] care for assistance with chest tube to [facility]. Return to [facility] on Sunday11/18/[address] removal . Esophageal reflux 10/08/2014 10/08/2014 Cataract 04/17/2013 09/15/2016 Overview: [facility], Dr. Dada Rodríguez. Mild cataract [...] of this encounter (statuses as of 06/17/2023) [facility]2015 History of Past illness Narrative* Problem Noted [...] Overview: Ana Ivory is and lives in [place]. At this time, we anticipate that [...] assistance with chest tube to [facility]. Return to [facility] on Sunday11/18/[address] removal . Esophageal reflux 10/08/2014 10/08/2014 Cataract 04/17/2013 09/15/2016 Overview: [facility], Dr. Dada Rodríguez. Mild cataract in L [...] of this encounter (statuses as of 06/29/2023) [facility]2015 History of Past illness Narrative* Problem Noted [...] Overview: Ana Ivory is and lives in [place]. At this time, we anticipate that [...] assistance with chest tube to [facility]. Return to [facility] on Sunday11/18/[address] . Esophageal reflux 10/08/2014 10/08/2014 Cataract 04/17/2013 09/15/2016 Overview: [facility], Dr. Dada Rodríguez. Mild cataract in L [...] of this encounter (statuses as of 07/03/2023) [facility]2015 History of Past illness Narrative* Problem Noted [...] Overview: Ana Ivory is and lives in [place]. At this time, we anticipate that [...] care for assistance with chest tube to [facility]. Return to [facility] on Sunday11/18/[address] . Esophageal reflux 10/08/2014 10/08/2014 Cataract 04/17/2013 09/15/2016 Overview: [facility], Dr. Dada Rodríguez. Mild cataract in L [...] of this encounter (statuses as of 07/21/2023) [facility]2015 History of Past illness Narrative* Problem Noted [...] Overview: Ana Ivory is and lives in [place]. At this time, we anticipate that [...] reflux 10/08/2014 10/08/2014 Cataract 04/17/2013 09/15/2016 Overview: [facility], Dr. Dada Rodríguez. Mild cataract in L [...] of this encounter (statuses as of 09/28/2023) [facility]2015 History of Past illness Narrative* Problem Noted [...] Overview: Ana Ivory is and lives in [place]. At this time, we anticipate that [...] care for assistance with chest tube to [facility]. Return to [facility] on Sunday11/18/[address] . Esophageal reflux 10/08/2014 10/08/2014 Cataract 04/17/2013 09/15/2016 Overview: [facility], Dr. Dada Rodríguez. Mild cataract in L [...] of this encounter (statuses as of 11/05/2023) [facility] Anxiety Anxiety state, unspecified [facility] Diagnosis Chronic gastritis without bleeding, unspecified gastritis type Esophagitis Esophagitis, unspecified [facility]le [facility], initial encounter- Primary [facility] Urinary tract infection without hematuria, [...] whether esophagitis present documented in this encounter [facility] note* Diagnosis Asymptomatic postmenopausal status documented in this encounter [facility] note* Diagnosis Osteoporosis, unspecified osteoporosis type, unspecified pathological fracture presence- Primary Anxiety Anxiety state, unspecified Encounter for immunization Need for other specified prophylactic vaccination against single bacterial disease documented in this encounter [facility] note* Diagnosis Suspected COVID-19 virus infection- Primary documented in this encounter [facility] note* Diagnosis Vitamin D deficiency- Primary Unspecified vitamin D deficiency Chronic cough Cough Vitamin B6 deficiency Essential hypertension Unspecified essential hypertension 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, with long-term current use of insulin ([facility] Hyperlipidemia, unspecified hyperlipidemia type Left lateral epicondylitis Lateral epicondylitis of elbow Radial styloid tenosynovitis of left hand Radial styloid tenosynovitis Asymptomatic postmenopausal status documented in this encounter [facility] note* Diagnosis Essential hypertension Unspecified essential hypertension documented in this encounter [facility] note* Diagnosis 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, with long-term current use of insulin (HCC) documented in this encounter [facility] note* Diagnosis Essential hypertension- Primary Unspecified essential hypertension 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, with long-term current use of insulin (HCC) Vitamin D deficiency Unspecified vitamin D deficiency Osteoporosis, unspecified Primary hypertension Unspecified essential hypertension [facility] [place]* Diagnosis Onset Date Resolution Status 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 disease acut e Bronchiectasis chronic S/P lobectomy of lung resolv ed History of ischemic stroke a cute Overweight (BMI 25.0-29.9) a cute Diabetes 1.5, managed as type 1 chronic Essential (primary) hypertension chronic Polyneuropathy chronic Dyspnea acute Bronchiectasis [facility] Work Phone: Evaluation note* Diagnosis Onset Date Resolution Status History of ischemic stroke a cute Overweight (BMI 25.0-29.9) a cute Diabetes 1.5, managed as type 1 chronic Essential (primary) hypertension chronic Polyneuropathy chronic Dyspnea acute Bronchiectasis [facility] Work Phone: Evaluation note* Diagnosis 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, with long-term current use of insulin (HCC)- Primary Contusion of right foot, initial encounter Contusion of cheondoism region, initial encounter Injury of coccyx, initial encounter Facial pain Headache Jaw pain Anxiety Anxiety state, unspecified Vitamin D deficiency Unspecified vitamin D deficiency [facility] Intractable acute post-traumatic headache- Primary Acute post-traumatic headache Contusion of right foot, initial encounter Contusion of cheondoism region, initial encounter Injury of coccyx, initial encounter Facial pain Headache Jaw pain Injury of head, subsequent encounter [facility] Diagnosis Intractable acute post-traumatic headache- Primary Acute post-traumatic headache Contusion of right foot, initial encounter Contusion of cheondoism region, initial encounter Injury of coccyx, initial encounter Facial pain Headache Jaw pain [facility] Diagnosis 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, with long-term current use of insulin (HCC)- Primary Hyperlipidemia, unspecified hyperlipidemia type Vitamin D deficiency Unspecified vitamin D deficiency [facility] Diagnosis Anxiety Anxiety state, unspecified [facility] Diagnosis Viral URI- Primary Acute upper respiratory infections of unspecified site Right ear pain Otalgia, unspecified [facility] Diagnosis Bronchiectasis without complication (HCC)- Primary Bronchiectasis without acute exacerbation Carcinoid bronchial adenoma, 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HCC) Encounter for immunization Need for other specified prophylactic vaccination against single bacterial disease 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 Essential hypertension Unspecified essential hypertension Anxiety Anxiety state, unspecified [facility] Diagnosis 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 Gonzales's esophagus [facility] Diagnosis 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 Gonzales's esophagus [facility] Diagnosis Onset Date Resolution Status Diabetes 1.5, managed as type 1 chronic Essential (primary) hypertension chronic Overweight (BMI 25.0-29.9) c hronic Polyneuropathy chronic Bronchiectasis chronic Fatigue noneactive 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 disease 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 Polyneuropathy chronic History of ischemic stroke r esolved Sepsis acute UTI (urinary tract infection) acute Diabetes 1.5, managed as type 1 chronic [facility] Work Phone: Evaluation note* Diagnosis Injury of head, subsequent encounter [facility] [place] [facility]* Diagnosis Onset Date Resolution Status Diabetes 1.5, managed as type 1 chronic Essential (primary) hypertension chronic Overweight (BMI 25.0-29.9) c hronic Polyneuropathy chronic Bronchiectasis chronic Fatigue noneactive 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 disease 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 Polyneuropathy chronic History of ischemic stroke [...] Sepsis resolved UTI (urinary tract infection) resolved [facility] Work Phone: Evaluation note* Diagnosis Debility- Primary Debility, unspecified Diabetes 1.5, managed as type 1 (HCC) Type II or unspecified type diabetes mellitus without mention of complication, not stated as uncontrolled Sepsis, due to unspecified organism, unspecified whether acute organ dysfunction present ([facility]) Pain in left ta [facility] [place] [facility]* Diagnosis Anxiety Anxiety state, unspecified [facility] [place] [facility]* Diagnosis Onset Date Resolution Status Fatigue noneactive 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 disease 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 Polyneuropathy chronic History of ischemic stroke [...] chronic Essential (primary) hypertension chronic Polyneuropathy chronic [facility] Work Phone: Evaluation note* Diagnosis Diabetes mellitus [...] Abnormality of gait [facility] [place] [facility]* Diagnosis Urinary frequency- Primary [facility] Diagnosis Anxiety Anxiety state, unspecified [facility] [place] [facility]* Diagnosis Sinobronchitis- Primary Unspecified sinusitis (chronic) Acute cough [facility] [place] [facility]* Diagnosis SOB (shortness of breath)- Primary Shortness of breath [facility] [place] [facility]* Diagnosis Diabetes 1.5, managed as type 1 (HCC)- Primary Type II or unspecified type diabetes mellitus without mention of complication, not stated as uncontrolled Screening for diabetic retinopathy Screening for other eye conditions Chest pain, unspecified type Lightheadedness Dizziness and giddiness Syncope, unspecified syncope type [facility] [place] [facility]* Diagnosis 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, with long-term current use of insulin ([facility]) 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 Gastroesophageal reflux disease with esophagitis [facility] [place] [facility]* Diagnosis Diabetes mellitus due to underlying [...] Pain in limb [facility] [place] [facility]* Diagnosis Diabetes mellitus due to underlying [...] injury, initial encounter [facility] [place] [facility]* Diagnosis Diabetes mellitus due to underlying [...] novel coronavirus infection documented in this encounter [facility] note* Diagnosis Diabetes mellitus due [...] Swelling of limb documented [facility] this encounter [facility] [place] [facility]* Diagnosis Diabetes mellitus due to underlying [...] Chronic cough Cough documented in this encounter [facility] note* Diagnosis Diabetes mellitus due [...] side (HCC)- Primary documented in this encounter [facility] for referral (narrative)* Diagnostic Procedure Only (Urgent) - Closed Specialty Diagnoses / Procedures Referred By Maddison peters Referred To Contact XR IMAGING Diagnoses Ankle injury, initial encounter Procedures XR ANKLE GENERAL 3V AP/LAT/OBL RIGHT RADEX ANKLE COMPLETE MINIMUM 3 VIEWS Anu Pablo PA-C [address] [place] [address] Xr Imaging Referral ID Status Reason Start Date Expiration Date V isits Requested Visits Authorized [id number] Closed Auto-Generate d Referral 01/30/2022 03/01/2023 1 1 [facility] for referral (narrative)* Outpatient Procedure (Routine) - Authorized Specialty Diagnoses / Procedures Referred By Maddison peters Referred To Contact [facility] [place] 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 Procedures EGD DIAGNOSTIC ESOPHAGOGASTRODUODENOSC OPY TRANSORAL DIAGNOSTIC Radha Balderrama MD [address] [place] [address] [facility] [place] [address] [place] [address] Referral ID Status Reason Start Date Expiration Date V isits Requested Visits Authorized [id number] Closed Auto-Generate d Referral 06/04/2023 06/04/2024 1 1 [facility] for referral (narrative)* Outpatient Procedure (Routine) - Authorized Specialty Diagnoses / Procedures Referred By Contac t Referred To Contact [facility] [place] Diagnoses Lightheadedness Syncope, unspecified syncope type Procedures US CAROTID ARTERIES [facility] DUPLEX SCAN EXTRACRANIAL ART COMPL BI STUDY Clarence Berry APRN.DRUPAL PHP DEVELOPER [address] [place] [address] [facility] [address] [address] Referral ID Status Reason Start Date Expiration Date Visits Requested Visits Authorized [id number] Authorized Auto-Generat ed Referral 01/31/2024 01/30/2025 1 1 * Diagnostic Procedure Only (Routine) - Authorized Specialty Diagnoses / Procedures Referred By Contac t Referred To Contact US IMAGING Diagnoses Lightheadedness Syncope, unspecified syncope type Procedures US CAROTID BILATERAL Clarence Berry APRN.DRUPAL PHP DEVELOPER [address] [place] [address] [place] [address] Referral ID Status Reason Start Date Expiration Date Visits Requested Visits Authorized [id number] Authorized Auto-Generat ed Referral 01/31/2024 03/01/2025 1 1 * Outpatient Procedure (Routine) - Pending Review Specialty Diagnoses / Procedures Referred By Contac t Referred To Contact [facility] [place] Diagnoses Chest pain, unspecified type Procedures ECG COMPLETE ECG ROUTINE ECG W/LEAST 12 LDS W/I&R Clarence Berry APRN.DRUPAL PHP DEVELOPER [address] [place] [address] [facility] [place] [address] [place] [address] Referral ID Status Reason Start Date Expiration Date Visits Requested Visits Authorized [id number] Pending Review Auto-Generat ed Referral 01/31/2024 01/30/2025 1 1 * Consult, Test, Treat (Routine) - Authorized Specialty Diagnoses / Procedures Referred By Contac t Referred To Contact Cardiology Diagnoses Chest pain, unspecified type Procedures CONSULT TO CARDIOLOGY OFFICE/OUTPATIENT [facility] 60 MINUTES Clarence Berry APRN.DRUPAL PHP DEVELOPER [address] [place] [address] Referral ID Status Reason Start Date Expiration Date Visits Requested Visits Authorized [id number] Authorized PCP Requested Referral 01/31/2024 01/30/2025 1 1 * Outpatient Procedure (Routine) - Authorized Specialty Diagnoses / Procedures Referred By Contac t Referred To Contact [facility] Diagnoses Chest pain, unspecified type Procedures STRESS ECHO TREADMILL ECHO TTHRC R-T 2D W/WO M-MODE COMPLETE REST&ST Clarence Berry APRN.DRUPAL PHP DEVELOPER [address] [place] [address] [facility] [place] [address] [place] [address] Referral ID Status Reason Start Date Expiration Date Visits Requested Visits Authorized [id number] Authorized Auto-Generat ed Referral 01/31/2024 01/30/2025 1 1 * Consult, Test, Treat (Routine) - Authorized Specialty Diagnoses / Procedures Referred By Contac t Referred To Contact Ophthalmology Diagnoses Diabetes 1.5, managed as type 1 (HCC) Screening for diabetic retinopathy Procedures CONSULT TO OPHTHALMOLOGY OFFICE/OUTPATIENT [facility] 60 MINUTES Clarence Berry APRN.DRUPAL PHP DEVELOPER [address] [place] [address] Referral ID Status Reason Start Date Expiration Date Visits Requested Visits Authorized [id number] Authorized PCP Requested Referral 01/31/2024 01/30/2025 1 1 [facility] for referral (narrative)* Diagnostic Procedure Only (Routine) - Closed Specialty Diagnoses / Procedures Referred By Contac t Referred To Contact XR IMAGING Diagnoses Foot pain, right Procedures XR FOOT GENERAL 3V AP/LAT/OBL RIGHT RADEX FOOT COMPLETE MINIMUM 3 VIEWS Crispin Cheng MD [address] [place] [address] [place] [address] Referral ID Status Reason Start Date Expiration Date V isits Requested Visits Authorized [id number] Closed Auto-Generate d Referral 12/30/2022 01/29/2024 1 1 [facility] for referral (narrative)* Diagnostic Procedure Only (Urgent) - Closed Specialty Diagnoses / Procedures Referred By Contac t Referred To Contact XR IMAGING Diagnoses Ankle injury, initial encounter Procedures XR ANKLE GENERAL 3V AP/LAT/OBL RIGHT RADEX ANKLE COMPLETE MINIMUM 3 VIEWS Aun Pablo PA-C [address] [place] [address] [place] [address] Referral ID Status Reason Start Date Expiration Date V isits Requested Visits Authorized [id number] Closed Auto-Generate d Referral 01/30/2022 03/01/2023 1 1 [facility] for visit Narrative* Auth/Cert Specialty Diagnoses / Procedures Referred By Contac t Referred To Contact Diagnoses History of Gonzales's esophagus [Z87.19 Procedures ESOPHAGOGASTRODUODENOSCOPY TRANSORAL DIAGNOSTIC EGD DIAGNOSTIC [GI9 [facility] [address] [place] [address] Referral ID Status Reason Start Date Expiration Date Visits Re quested Visits Authorized [id number] 1 1 [facility] for visit Narrative* Outpatient Procedure (Routine) - Closed Specialty Diagnoses / Procedures Referred By Contac t Referred To Contact [facility] 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 Procedures EGD DIAGNOSTIC ESOPHAGOGASTRODUODENOSC OPY TRANSORAL DIAGNOSTIC Radha Balderrama MD [address] [place] [address] [facility] [place] [address] [place] [address] Referral ID Status Reason Start Date Expiration Date V isits Requested Visits Authorized [id number] Closed Auto-Generate d Referral 06/04/2023 06/04/2024 1 1 [facility] for visit Narrative* Diagnostic Procedure Only (Routine) - Closed Specialty Diagnoses / Procedures Referred By Contac t Referred To Contact XR IMAGING Diagnoses Foot pain, right Procedures XR FOOT GENERAL 3V AP/LAT/OBL RIGHT RADEX FOOT COMPLETE MINIMUM 3 VIEWS Crispin Cheng MD [address] [place] [address] [place] [address] Referral ID Status Reason Start Date Expiration Date V isits Requested Visits Authorized [id number] Closed Auto-Generate d Referral 12/30/2022 01/29/2024 1 1 [facility] for visit Narrative* Diagnostic Procedure Only (Urgent) - Closed Specialty Diagnoses / Procedures Referred By Contac t Referred To Contact XR IMAGING Diagnoses Ankle injury, initial encounter Procedures XR ANKLE GENERAL 3V AP/LAT/OBL RIGHT RADEX ANKLE COMPLETE MINIMUM 3 VIEWS Anu Pablo PA-C [address] [place] [address] [place] [address] Referral ID Status Reason Start Date Expiration Date V isits Requested Visits Authorized [id number] Closed Auto-Generate d Referral 01/30/2022 03/01/2023 1 1 [facility] Advance Directives No Advanced Directives Records FoundDocuments on File Type Date Recorded Patient Booker Expl anation Advance Directive(s) 11/10/2021 3:53 PM [...] Documents on File Type Date Recorded Patient Booker Expl anation Advance Directive(s) 12/21/2021 1:29 PM [...] Documents on File Type Date Recorded Patient Booker Expl anation Advance Directive(s) 12/21/2021 1:29 PM [...] Documents on File Type Date Recorded Patient Booker Expl anation Advance Directive(s) 09/25/2008 8:05 PM Advance Directive(s) 05/05/2008 Advance Directive(s) 09/27/2006 Advance Directive Response Recorded Date/ Time Living Will Yes December 29, 2020 1 0:06am Power of Irrigation Equipment Installer Yes December 29, 2020 10:06am Documents on File Type Date Recorded Patient Booker Expl anation Advance Directive(s) 09/25/2008 8:05 PM Advance Directive(s) 05/05/2008 Advance Directive(s) 09/27/2006 Advance Directive Response Recorded Date/ Time Name of Medical Power of Irrigation Equipment Installer lilly Turcios n in law June 10, 2023 6:29pm Living Will Yes June 10 6:29pm Power of Irrigation Equipment Installer Yes June 10, 2023 6:29pm Advance Directive Response Recorded Date/ Time Name of Medical Power of Irrigation Equipment Installer lilly Turcios n in law June 10, 2023 8:53pm Name of Medical Power of Irrigation Equipment Installer Ayaz Ivory, June 15, 2023 3:30pm Living Will Yes June 15 3:30pm Power of Irrigation Equipment Installer Yes June 15, 2023 3:30pm Medications Administered Section Inactive Administered Medications - up to 3 most recent administrations Medication Order MAR Action Action Date Dose Rate Site benzocaine 20% 1 [place] (TOPEX) 1 [place], TOPICAL, DIRECTED, Starting on Sun12/21/21 at 0830, Until Sun12/21/21 at 1229, DOSING DIRECTED BY PHYSICIAN FOR PROCEDURAL SEDATION ONLY - Pharmaceutical Waste: Aerosol -, Intraprocedure Given 12/21/2021 8:07 AM EDT 1 [place] Concerns Infection Onset Date Last Indicated [...] CT HEAD/BRAIN W/O CONTRAST MATERIAL Clarence Berry, AUDIO VISUAL ARTS DIRECTOR.DRUPAL PHP DEVELOPER [address] [place] [address] Ct Imaging Referral ID Status Reason Start Date Expiration Date V isits Requested Visits Authorized [id number] Closed Auto-Generate d Referral 10/10/2022 11/09/2023 1 1 Specialty Diagnoses / Procedures Referred By Maddison peters Referred To Contact [facility] Diagnoses Contusion of right foot, initial encounter Contusion of cheondoism region, initial encounter Injury of coccyx, initial encounter Facial pain Jaw pain Procedures CONSULT TO PHYSICAL THERAPY PHYSICAL THERAPY EVALUATION HIGH COMPLEX 45 MINS Clarence Berry, AUDIO VISUAL ARTS DIRECTOR.DRUPAL PHP DEVELOPER [address] [place] [address] [facility] [place] [address] [place] [address] Referral ID Status Reason Start Date Expiration Date Visits Requested Visits Authorized [id number] Authorized PCP Requested Referral Auto-Generate d Referral 10/10/2022 10/10/2023 99 99 Specialty Diagnoses / Procedures Referred By Contac t Referred To Contact Gastroenterology 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 Procedures CONSULT TO GASTROENTEROLOGY OFFICE/OUTPATIENT [facility] 60-74 MINUTES BerryClarence kirkpatrick, AUDIO VISUAL ARTS DIRECTOR.DRUPAL PHP DEVELOPER [address] [place] [address] Referral ID Status Reason Start Date Expiration Date Visits Requested Visits Authorized [id number] Authorized PCP Requested Referral 3 05/30/2024 1 1 Specialty Diagnoses / Procedures Referred By Contac t Referred To Contact CT IMAGING Diagnoses Injury of head, subsequent encounter Procedures CT BRAIN WO IVCON CT HEAD/BRAIN W/O CONTRAST MATERIAL BerryClarence kirkpatrick, AUDIO VISUAL ARTS DIRECTOR.DRUPAL PHP DEVELOPER [address] [place] [address] [place] [address] Specialty Diagnoses / Procedures Referred By Contac t Referred To Contact Orthopedics Diagnoses Pain in left ta Procedures CONSULT TO ORTHOPAEDICS OFFICE/OUTPATIENT [facility] 60-74 MINUTES LithopolisClarence, AUDIO VISUAL ARTS DIRECTOR.DRUPAL PHP DEVELOPER [address] [place] [address] Referral ID Status Reason Start Date Expiration Date Visits Requested Visits Authorized [id number] Authorized PCP Requested Referral 3 07/01/2024 1 1 Summary Purpose Additional Source Comments Source Comments (unrecognize d section and content) In the event this informatio n is protected by the Federal Confidentiality of Alcohol and Drug Abuse Patient Records regulations: The Federal rules restrict any use of the information to criminally investigate or prosecute any alcohol or drug abuse patient.[facility] the event this information is protected by the Federal Confidentiality of Alcohol and Drug Abuse Patient Records regulations: The Federal rules restrict any use of the information to criminally investigate or prosecute any alcohol or drug abuse patient.[facility] DaytonIn the event this information is protected by the Federal Confidentiality of Alcohol and Drug Abuse Patient Records regulations: The Federal rules restrict any use of the information to criminally investigate or prosecute any alcohol or drug abuse patient.[facility] DaytonIn the event this information is protected by the Federal Confidentiality of Alcohol and Drug Abuse Patient Records regulations: The Federal rules restrict any use of the information to criminally investigate or prosecute any alcohol or drug abuse patient.[facility] DaytonIn the event this information is protected by the Federal Confidentiality of Alcohol and Drug Abuse Patient Records regulations: The Federal rules restrict any use of the information to criminally investigate or prosecute any alcohol or drug abuse patient.[facility] DaytonIn the event this information is protected by the Federal Confidentiality of Alcohol and Drug Abuse Patient Records regulations: The Federal rules restrict any use of the information to criminally investigate or prosecute any alcohol or drug abuse patient.[facility] DaytonIn the event this information is protected by the Federal Confidentiality of Alcohol and Drug Abuse Patient Records regulations: The Federal rules restrict any use of the information to criminally investigate or prosecute any alcohol or drug abuse patient.[facility] DaytonIn the event this information is protected by the Federal Confidentiality of Alcohol and Drug Abuse Patient Records regulations: The Federal rules restrict any use of the information to criminally investigate or prosecute any alcohol or drug abuse patient.[facility] DaytonIn the event this information is protected by the Federal Confidentiality of Alcohol and Drug Abuse Patient Records regulations: The Federal rules restrict any use of the information to criminally investigate or prosecute any alcohol or drug abuse patient.[facility] DaytonIn the event this information is protected by the Federal Confidentiality of Alcohol and Drug Abuse Patient Records regulations: The Federal rules restrict any use of the information to criminally investigate or prosecute any alcohol or drug abuse patient.[facility] DaytonIn the event this information is protected by the Federal Confidentiality of Alcohol and Drug Abuse Patient Records regulations: The Federal rules restrict any use of the information to criminally investigate or prosecute any alcohol or drug abuse patient.[facility] DaytonIn the event this information is protected by the Federal Confidentiality of Alcohol and Drug Abuse Patient Records regulations: The Federal rules restrict any use of the information to criminally investigate or prosecute any alcohol or drug abuse patient.[facility] DaytonIn the event this information is protected by the Federal Confidentiality of Alcohol and Drug Abuse Patient Records regulations: The Federal rules restrict any use of the information to criminally investigate or prosecute any alcohol or drug abuse patient.[facility] DaytonIn the event this information is protected by the Federal Confidentiality of Alcohol and Drug Abuse Patient Records regulations: The Federal rules restrict any use of the information to criminally investigate or prosecute any alcohol or drug abuse patient.[facility] DaytonIn the event this information is protected by the Federal Confidentiality of Alcohol and Drug Abuse Patient Records regulations: The Federal rules restrict any use of the information to criminally investigate or prosecute any alcohol or drug abuse patient.[facility] DaytonIn the event this information is protected by the Federal Confidentiality of Alcohol and Drug Abuse Patient Records regulations: The Federal rules restrict any use of the information to criminally investigate or prosecute any alcohol or drug abuse patient.[facility] DaytonIn the event this information is protected by the Federal Confidentiality of Alcohol and Drug Abuse Patient Records regulations: The Federal rules restrict any use of the information to criminally investigate or prosecute any alcohol or drug abuse patient.[facility] DaytonIn the event this information is protected by the Federal Confidentiality of Alcohol and Drug Abuse Patient Records regulations: The Federal rules restrict any use of the information to criminally investigate or prosecute any alcohol or drug abuse patient.[facility] DaytonIn the event this information is protected by the Federal Confidentiality of Alcohol and Drug Abuse Patient Records regulations: The Federal rules restrict any use of the information to criminally investigate or prosecute any alcohol or drug abuse patient.[facility] DaytonIn the event this information is protected by the Federal Confidentiality of Alcohol and Drug Abuse Patient Records regulations: The Federal rules restrict any use of the information to criminally investigate or prosecute any alcohol or drug abuse patient.[facility] DaytonIn the event this information is protected by the Federal Confidentiality of Alcohol and Drug Abuse Patient Records regulations: The Federal rules restrict any use of the information to criminally investigate or prosecute any alcohol or drug abuse patient.[facility] DaytonIn the event this information is protected by the Federal Confidentiality of Alcohol and Drug Abuse Patient Records regulations: The Federal rules restrict any use of the information to criminally investigate or prosecute any alcohol or drug abuse patient.[facility] DaytonIn the event this information is protected by the Federal Confidentiality of Alcohol and Drug Abuse Patient Records regulations: The Federal rules restrict any use of the information to criminally investigate or prosecute any alcohol or drug abuse patient.[facility] DaytonIn the event this information is protected by the Federal Confidentiality of Alcohol and Drug Abuse Patient Records regulations: The Federal rules restrict any use of the information to criminally investigate or prosecute any alcohol or drug abuse patient.[facility] DaytonIn the event this information is protected by the Federal Confidentiality of Alcohol and Drug Abuse Patient Records regulations: The Federal rules restrict any use of the information to criminally investigate or prosecute any alcohol or drug abuse patient.[facility] DaytonIn the event this information is protected by the Federal Confidentiality of Alcohol and Drug Abuse Patient Records regulations: The Federal rules restrict any use of the information to criminally investigate or prosecute any alcohol or drug abuse patient.[facility] DaytonIn the event this information is protected by the Federal Confidentiality of Alcohol and Drug Abuse Patient Records regulations: The Federal rules restrict any use of the information to criminally investigate or prosecute any alcohol or drug abuse patient.[facility] DaytonIn the event this information is protected by the Federal Confidentiality of Alcohol and Drug Abuse Patient Records regulations: The Federal rules restrict any use of the information to criminally investigate or prosecute any alcohol or drug abuse patient.[facility] DaytonIn the event this information is protected by the Federal Confidentiality of Alcohol and Drug Abuse Patient Records regulations: The Federal rules restrict any use of the information to criminally investigate or prosecute any alcohol or drug abuse patient.[facility] DaytonIn the event this information is protected by the Federal Confidentiality of Alcohol and Drug Abuse Patient Records regulations: The Federal rules restrict any use of the information to criminally investigate or prosecute any alcohol or drug abuse patient.[facility] DaytonIn the event this information is protected by the Federal Confidentiality of Alcohol and Drug Abuse Patient Records regulations: The Federal rules restrict any use of the information to criminally investigate or prosecute any alcohol or drug abuse patient.[facility] DaytonIn the event this information is protected by the Federal Confidentiality of Alcohol and Drug Abuse Patient Records regulations: The Federal rules restrict any use of the information to criminally investigate or prosecute any alcohol or drug abuse patient.[facility] DaytonIn the event this information is protected by the Federal Confidentiality of Alcohol and Drug Abuse Patient Records regulations: The Federal rules restrict any use of the information to criminally investigate or prosecute any alcohol or drug abuse patient.[facility] DaytonIn the event this information is protected by the Federal Confidentiality of Alcohol and Drug Abuse Patient Records regulations: The Federal rules restrict any use of the information to criminally investigate or prosecute any alcohol or drug abuse patient.[facility] DaytonIn the event this information is protected by the Federal Confidentiality of Alcohol and Drug Abuse Patient Records regulations: The Federal rules restrict any use of the information to criminally investigate or prosecute any alcohol or drug abuse patient.[facility] DaytonIn the event this information is protected by the Federal Confidentiality of Alcohol and Drug Abuse Patient Records regulations: The Federal rules restrict any use of the information to criminally investigate or prosecute any alcohol or drug abuse patient.[facility] DaytonIn the event this information is protected by the Federal Confidentiality of Alcohol and Drug Abuse Patient Records regulations: The Federal rules restrict any use of the information to criminally investigate or prosecute any alcohol or drug abuse patient.[facility] DaytonIn the event this information is protected by the Federal Confidentiality of Alcohol and Drug Abuse Patient Records regulations: The Federal rules restrict any use of the information to criminally investigate or prosecute any alcohol or drug abuse patient.[facility] DaytonIn the event this information is protected by the Federal Confidentiality of Alcohol and Drug Abuse Patient Records regulations: The Federal rules restrict any use of the information to criminally investigate or prosecute any alcohol or drug abuse patient.[facility] DaytonIn the event this information is protected by the Federal Confidentiality of Alcohol and Drug Abuse Patient Records regulations: The Federal rules restrict any use of the information to criminally investigate or prosecute any alcohol or drug abuse patient.[facility] DaytonIn the event this information is protected by the Federal Confidentiality of Alcohol and Drug Abuse Patient Records regulations: The Federal rules restrict any use of the information to criminally investigate or prosecute any alcohol or drug abuse patient.[facility] DaytonIn the event this information is protected by the Federal Confidentiality of Alcohol and Drug Abuse Patient Records regulations: The Federal rules restrict any use of the information to criminally investigate or prosecute any alcohol or drug abuse patient.[facility] DaytonIn the event this information is protected by the Federal Confidentiality of Alcohol and Drug Abuse Patient Records regulations: The Federal rules restrict any use of the information to criminally investigate or prosecute any alcohol or drug abuse patient.[facility] DaytonIn the event this information is protected by the Federal Confidentiality of Alcohol and Drug Abuse Patient Records regulations: The Federal rules restrict any use of the information to criminally investigate or prosecute any alcohol or drug abuse patient.[facility] DaytonIn the event this information is protected by the Federal Confidentiality of Alcohol and Drug Abuse Patient Records regulations: The Federal rules restrict any use of the information to criminally investigate or prosecute any alcohol or drug abuse patient.[facility] DaytonIn the event this information is protected by the Federal Confidentiality of Alcohol and Drug Abuse Patient Records regulations: The Federal rules restrict any use of the information to criminally investigate or prosecute any alcohol or drug abuse patient.[facility] DaytonIn the event this information is protected by the Federal Confidentiality of Alcohol and Drug Abuse Patient Records regulations: The Federal rules restrict any use of the information to criminally investigate or prosecute any alcohol or drug abuse patient.[facility] DaytonIn the event this information is protected by the Federal Confidentiality of Alcohol and Drug Abuse Patient Records regulations: The Federal rules restrict any use of the information to criminally investigate or prosecute any alcohol or drug abuse patient.[facility] DaytonIn the event this information is protected by the Federal Confidentiality of Alcohol and Drug Abuse Patient Records regulations: The Federal rules restrict any use of the information to criminally investigate or prosecute any alcohol or drug abuse patient.[facility] DaytonIn the event this information is protected by the Federal Confidentiality of Alcohol and Drug Abuse Patient Records regulations: The Federal rules restrict any use of the information to criminally investigate or prosecute any alcohol or drug abuse patient.[facility] DaytonIn the event this information is protected by the Federal Confidentiality of Alcohol and Drug Abuse Patient Records regulations: The Federal rules restrict any use of the information to criminally investigate or prosecute any alcohol or drug abuse patient.[facility] DaytonIn the event this information is protected by the Federal Confidentiality of Alcohol and Drug Abuse Patient Records regulations: The Federal rules restrict any use of the information to criminally investigate or prosecute any alcohol or drug abuse patient.[facility] DaytonIn the event this information is protected by the Federal Confidentiality of Alcohol and Drug Abuse Patient Records regulations: The Federal rules restrict any use of the information to criminally investigate or prosecute any alcohol or drug abuse patient.[facility] DaytonIn the event this information is protected by the Federal Confidentiality of Alcohol and Drug Abuse Patient Records regulations: The Federal rules restrict any use of the information to criminally investigate or prosecute any alcohol or drug abuse patient.[facility] DaytonIn the event this information is protected by the Federal Confidentiality of Alcohol and Drug Abuse Patient Records regulations: The Federal rules restrict any use of the information to criminally investigate or prosecute any alcohol or drug abuse patient.[facility] DaytonIn the event this information is protected by the Federal Confidentiality of Alcohol and Drug Abuse Patient Records regulations: The Federal rules restrict any use of the information to criminally investigate or prosecute any alcohol or drug abuse patient.[facility] DaytonIn the event this information is protected by the Federal Confidentiality of Alcohol and Drug Abuse Patient Records regulations: The Federal rules restrict any use of the information to criminally investigate or prosecute any alcohol or drug abuse patient.[facility] DaytonIn the event this information is protected by the Federal Confidentiality of Alcohol and Drug Abuse Patient Records regulations: The Federal rules restrict any use of the information to criminally investigate or prosecute any alcohol or drug abuse patient.[facility] DaytonIn the event this information is protected by the Federal Confidentiality of Alcohol and Drug Abuse Patient Records regulations: The Federal rules restrict any use of the information to criminally investigate or prosecute any alcohol or drug abuse patient.[facility] DaytonIn the event this information is protected by the Federal Confidentiality of Alcohol and Drug Abuse Patient Records regulations: The Federal rules restrict any use of the information to criminally investigate or prosecute any alcohol or drug abuse patient.[facility] DaytonIn the event this information is protected by the Federal Confidentiality of Alcohol and Drug Abuse Patient Records regulations: The Federal rules restrict any use of the information to criminally investigate or prosecute any alcohol or drug abuse patient.[facility] DaytonIn the event this information is protected by the Federal Confidentiality of Alcohol and Drug Abuse Patient Records regulations: The Federal rules restrict any use of the information to criminally investigate or prosecute any alcohol or drug abuse patient.[facility] DaytonIn the event this information is protected by the Federal Confidentiality of Alcohol and Drug Abuse Patient Records regulations: The Federal rules restrict any use of the information to criminally investigate or prosecute any alcohol or drug abuse patient.[facility] DaytonIn the event this information is protected by the Federal Confidentiality of Alcohol and Drug Abuse Patient Records regulations: The Federal rules restrict any use of the information to criminally investigate or prosecute any alcohol or drug abuse patient.[facility] DaytonIn the event this information is protected by the Federal Confidentiality of Alcohol and Drug Abuse Patient Records regulations: The Federal rules restrict any use of the information to criminally investigate or prosecute any alcohol or drug abuse patient.[facility] DaytonIn the event this information is protected by the Federal Confidentiality of Alcohol and Drug Abuse Patient Records regulations: The Federal rules restrict any use of the information to criminally investigate or prosecute any alcohol or drug abuse patient.[facility] DaytonIn the event this information is protected by the Federal Confidentiality of Alcohol and Drug Abuse Patient Records regulations: The Federal rules restrict any use of the information to criminally investigate or prosecute any alcohol or drug abuse patient.[facility] DaytonIn the event this information is protected by the Federal Confidentiality of Alcohol and Drug Abuse Patient Records regulations: The Federal rules restrict any use of the information to criminally investigate or prosecute any alcohol or drug abuse patient.[facility] DaytonIn the event this information is protected by the Federal Confidentiality of Alcohol and Drug Abuse Patient Records regulations: The Federal rules restrict any use of the information to criminally investigate or prosecute any alcohol or drug abuse patient.[facility] DaytonIn the event this information is protected by the Federal Confidentiality of Alcohol and Drug Abuse Patient Records regulations: The Federal rules restrict any use of the information to criminally investigate or prosecute any alcohol or drug abuse patient.[facility] DaytonIn the event this information is protected by the Federal Confidentiality of Alcohol and Drug Abuse Patient Records regulations: The Federal rules restrict any use of the information to criminally investigate or prosecute any alcohol or drug abuse patient.[facility] DaytonIn the event this information is protected by the Federal Confidentiality of Alcohol and Drug Abuse Patient Records regulations: The Federal rules restrict any use of the information to criminally investigate or prosecute any alcohol or drug abuse patient.[facility] DaytonIn the event this information is protected by the Federal Confidentiality of Alcohol and Drug Abuse Patient Records regulations: The Federal rules restrict any use of the information to criminally investigate or prosecute any alcohol or drug abuse patient.[facility] DaytonIn the event this information is protected by the Federal Confidentiality of Alcohol and Drug Abuse Patient Records regulations: The Federal rules restrict any use of the information to criminally investigate or prosecute any alcohol or drug abuse patient.[facility] DaytonIn the event this information is protected by the Federal Confidentiality of Alcohol and Drug Abuse Patient Records regulations: The Federal rules restrict any use of the information to criminally investigate or prosecute any alcohol or drug abuse patient.[facility] DaytonIn the event this information is protected by the Federal Confidentiality of Alcohol and Drug Abuse Patient Records regulations: The Federal rules restrict any use of the information to criminally investigate or prosecute any alcohol or drug abuse patient.[facility] DaytonIn the event this information is protected by the Federal Confidentiality of Alcohol and Drug Abuse Patient Records regulations: The Federal rules restrict any use of the information to criminally investigate or prosecute any alcohol or drug abuse patient.[facility] DaytonIn the event this information is protected by the Federal Confidentiality of Alcohol and Drug Abuse Patient Records regulations: The Federal rules restrict any use of the information to criminally investigate or prosecute any alcohol or drug abuse patient.[facility] DaytonIn the event this information is protected by the Federal Confidentiality of Alcohol and Drug Abuse Patient Records regulations: The Federal rules restrict any use of the information to criminally investigate or prosecute any alcohol or drug abuse patient.[facility] Reason for Visit (unrecogniz ed section and [...] NEW HIGH MDM 60-74 MINUTES Clarence Berry, MASOUD.DRUPAL PHP DEVELOPER [address] [place] [address] Referral ID Status Reason Start Date Expiration Date V isits Requested Visits Authorized [id number] Closed PCP Requested Referral 05/31/2023 05/30/2024 [address] Specialty Diagnoses / Procedures Referred By Maddison t Referred To Contact CT IMAGING Diagnoses Injury of head, subsequent encounter Procedures CT BRAIN WO IVCON CT HEAD/BRAIN W/O CONTRAST MATERIAL BerryClarence, AUDIO VISUAL ARTS DIRECTOR.DRUPAL PHP DEVELOPER [address] [place] [address] [place] [address] Referral ID Status Reason Start Date Expiration Date V isits Requested Visits Authorized [id number] Closed Auto-Generate d Referral 10/10/2022 11/09/2023 1 [...] month Reason Comments Transition Of Care D/C [facility] 07/12/24 for syncope Reason Comments Follow Reason Comments Home Health Point of Care Results Reason Comments [facility] OT updated POC Reason Comments Patient Update Reason Comments ST plan of care Reason Comments Medication Problem Reason Onset Date Comments Population Health Navigation Outreach 11/20/2024 Jovana/Workbench/ACO Reason Comments Occupatioal Therapy Updated Plan of Care Reason Comments Delay of care- OT [facility] Reason Comments OT plan of care Reason Onset Date Comments Home Care Management 12/17/2024 Reason Onset Date Comments Population Health Navigation Outreach 12/23/2024 Savannah/Workbench/ACO Reason Onset Date Comments Population Health Navigation Outreach 01/22/2025 Jovana/Workbench/ACO Reason Onset Date Comments Population Health Navigation Outreach 02/23/2025 Savannah/Workbench/ACO Reason Onset Date Comments Population Health Navigation Outreach 03/26/2025 Savannah/Workbench/ACO Care Teams (unrecognized sec tion and content) Track Moving Machine Operator Relationship Specialty Start Date End Date Alicia Blount MD [address] [facility] [place] [address] PCP - General Internal Medicine 01/17/17 Track Moving Machine Operator Relationship Specialty Start Date End Date Alicia Blount MD [address] [place] [address], [place] [address] PCP - General Internal Medicine 01/17/17 Track Moving Machine Operator Relationship Specialty Start Date End Date Alicia Blount MD [address] [place] [address], [place] [address] PCP - General Internal Medicine 01/17/17 Track Moving Machine Operator Relationship Specialty Start Date End Date Alicia Blount MD [address] [place] [address], [place] [address] PCP - General Internal Medicine 01/17/17 Track Moving Machine Operator Relationship Specialty Start Date End Date Alicia Blount MD [address] [place] [address], [place] [address] PCP - General Internal Medicine 01/17/17 Track Moving Machine Operator Relationship Specialty Start Date End Date Alicia Blount MD [address] [place] [address], [place] [address] PCP - General Internal Medicine 01/17/17 Track Moving Machine Operator Relationship Specialty Start Date End Date Alicia Blount MD [address] [place] [address], [place] [address] PCP - General Internal Medicine 01/17/17 Track Moving Machine Operator Relationship Specialty Start Date End Date Alicia Blount MD [address] [place] [address], [place] [address] PCP - General Internal Medicine 01/17/17 Track Moving Machine Operator Relationship Specialty Start Date End Date Alicia Blount MD [address] [facility] [place] [address] PCP - General Internal Medicine 01/17/17 Track Moving Machine Operator Relationship Specialty Start Date End Date Alicia Blount MD [address] [facility] [place] [address] PCP - General Internal Medicine 01/17/17 Track Moving Machine Operator Relationship Specialty Start Date End Date Alicia Blount MD [address] [facility] [place] [address] PCP - General Internal Medicine 01/17/17 Track Moving Machine Operator Relationship Specialty Start Date End Date Alicia Blount MD [address] [facility] [place] [address] PCP - General Internal Medicine 01/17/17 Track Moving Machine Operator Relationship Specialty Start Date End Date Alicia Blount MD [address] [place] [address] PCP - General Internal Medicine 01/17/17 Track Moving Machine Operator Relationship Specialty Start Date End Date Alicia Blount MD [address] [place] [address] PCP - General Internal Medicine 01/17/17 Team [...] Provider, Referr ing Provider Active Johana Cat RIGGER SUPERVISOR, RIGGER SUPERVISOR-C Attending Provider Active Team Status: Active Member Role Status Dates Dr. lAicia Blount MD Primary Care Provider Active Johana Cat RIGGER SUPERVISOR, RIGGER SUPERVISOR-C Referring Provider, Other Pr ovider Active Dr. Jamar Chanel DO Attending Provider Active Team Status: Active Member Role Status Dates Dr. Alicia Blount MD Primary Care Provider Active Johana Cat RIGGER SUPERVISOR, RIGGER SUPERVISOR-C Referring Provider, Other Pr ovider Active Dr. Reji Bran MD Attending Provider Active Team Status: Active Member Role Status Dates Dr. Alicia Blount MD Primary Care Provider Active Dr. Anna Espinoza MD Attending Provider Activ e Team Status: Inactive Member Role Status Dates Dr. Alicia Blount MD Primary Care Provider Active Johana Cat RIGGER SUPERVISOR, RIGGER SUPERVISOR-C Attending Provider Active Team Status: Inactive Member Role Status Dates Dr. Alicia Blount MD Primary Care Provider Active Johana Cat RIGGER SUPERVISOR, RIGGER SUPERVISOR-C Attending Provider, Referrin g Provider Active Team Status: Active Member Role Status Dates Dr. Alicia Blount MD Primary Care Provider Active Johana Cat RIGGER SUPERVISOR, RIGGER SUPERVISOR-C Attending Provider Active Track Moving Machine Operator Relationship Specialty Start Date End Date Alicia Blount MD [address] [place] [address] PCP - General Internal Medicine 01/17/17 Track Moving Machine Operator Relationship Specialty Start Date End Date Alicia Blount MD [address] [place] [address] PCP - General Internal Medicine 01/17/17 Track Moving Machine Operator Relationship Specialty Start Date End Date Alicia Blount MD [address] [place] [address] PCP - General Internal Medicine 01/17/17 Track Moving Machine Operator Relationship Specialty Start Date End Date Alicia Blount MD [address] [place] [address] PCP - General Internal Medicine 01/17/17 Track Moving Machine Operator Relationship Specialty Start Date End Date Alicia Blount MD [address] [place] [address] PCP - General Internal Medicine 01/17/17 Track Moving Machine Operator Relationship Specialty Start Date End Date Alicia Blount MD [address] [place] [address] PCP - General Internal Medicine 01/17/17 Track Moving Machine Operator Relationship Specialty Start Date End Date Alicia Blount MD [address] [place] [address] PCP - General Internal Medicine 01/17/17 Track Moving Machine Operator Relationship Specialty Start Date End Date Alicia Blount MD [address] [place] [address] PCP - General Internal Medicine 01/17/17 Track Moving Machine Operator Relationship Specialty Start Date End Date Alicia Blount MD [address] [place] [address] PCP - General Internal Medicine 01/17/17 Track Moving Machine Operator Relationship Specialty Start Date End Date Alicia Blount MD [address] [place] [address] PCP - General Internal Medicine 01/17/17 Track Moving Machine Operator Relationship Specialty Start Date End Date Alicia Blount MD [address] [place] [address] PCP - General Internal Medicine 01/17/17 Team Status: Inactive Member Role Status Dates Dr. Alicia Blount MD Primary Care Provider, Referr ing Provider Active Dr. Hernando Pandya MD Attending Provider Active Team Status: Active Member Role Status Dates Dr. Alicia Blount MD Primary Care Provider Active Dr. Dada Maynard DO Emergency Provider Active Dr. Edwin Morgan MD Admit Provider, Attending Pro vider Active Track Moving Machine Operator Relationship Specialty Start Date End Date Alicia Blount MD [address] [place] [address] PCP - General Internal Medicine 01/17/17 Team [...] Dr. Denzel Forbes MD Attending Provider Active Track Moving Machine Operator Relationship Specialty Start Date End Date Alicia Blount MD [address] [place] [address] PCP - General Internal Medicine 01/17/17 Track Moving Machine Operator Relationship Specialty Start Date End Date Alicia Blount MD [address] [place] [address] PCP - General Internal Medicine 01/17/17 Track Moving Machine Operator Relationship Specialty Start Date End Date Alicia Blount MD [address] [place] [address] PCP - General Internal Medicine 01/17/17 Team [...] MD Admit Provider, Attending Provid er Active Track Moving Machine Operator Relationship Specialty Start Date End Date Alicia Blount MD [address] [place] [address] PCP - General Internal Medicine 01/17/17 Track Moving Machine Operator Relationship Specialty Start Date End Date Alicia Blount MD [address] [place] [address] PCP - General Internal Medicine 01/17/17 Track Moving Machine Operator Relationship Specialty Start Date End Date Alicia Blount MD [address] [place], [place] [address] PCP - General Internal Medicine 01/17/17 Track Moving Machine Operator Relationship Specialty Start Date End Date Alicia Blount MD [address] [place] [address] PCP - General Internal Medicine 01/17/17 Track Moving Machine Operator Relationship Specialty Start Date End Date Alicia Blount MD [address] [facility] [place] [address] PCP - General Internal Medicine 01/17/17 Track Moving Machine Operator Relationship Specialty Start Date End Date Alicia Blount MD [address] [facility] [place] [address] PCP - General Internal Medicine 01/17/17 Track Moving Machine Operator Relationship Specialty Start Date End Date Alicia Blount MD [address] [facility] [place] [address] PCP - General Internal Medicine 01/17/17 Track Moving Machine Operator Relationship Specialty Start Date End Date Alicia Blount MD [address] [facility] [place] [address] PCP - General Internal Medicine 01/17/17 Track Moving Machine Operator Relationship Specialty Start Date End Date Alicia Blount MD [address] [facility] [place] [address] PCP - General Internal Medicine 01/17/17 Track Moving Machine Operator Relationship Specialty Start Date End Date Alicia Blount MD [address] [facility] [place] [address] PCP - General Internal Medicine 01/17/17 Track Moving Machine Operator Relationship Specialty Start Date End Date Alicia Blount MD [address] [facility] [place] [address] PCP - General Internal Medicine 01/17/17 Track Moving Machine Operator Relationship Specialty Start Date End Date Alicia Blount MD [address] [facility] [place] [address] PCP - General Internal Medicine 01/17/17 Track Moving Machine Operator Relationship Specialty Start Date End Date Alicia Blount MD [address] [place] [address] PCP - General Internal Medicine 01/17/17 Ellen Gonzalez, MANNY [address] [place] [address] Primary Care Track Supervisor 07/14/24 Track Moving Machine Operator Relationship Specialty Start Date End Date Alicia Blount MD [address] [place] [address] PCP - General Internal Medicine 01/17/17 Ellen Gonzalez, MANNY [address] [place] [address] Primary Care Track Supervisor 07/14/24 Clarnece Berry, AUDIO VISUAL ARTS DIRECTOR.DRUPAL PHP DEVELOPER [address] [place] [address] Virginia Line Attendant Internal Medicine 07/21/24 Isabella Emerson AUDIO VISUAL ARTS DIRECTOR.DRIER ATTENDANT [address] [place] [address] [place] Line Attendant Internal Medicine 07/21/24 Track Moving Machine Operator Relationship Specialty Start Date End Date Alicia Blount MD [address] [place] [address] PCP - General Internal Medicine 01/17/17 Ellen Gonzalez, MANNY [address] [place] [address] Primary Care Track Supervisor 07/14/24 Track Moving Machine Operator Relationship Specialty Start Date End Date Alicia Blount MD [address] [place] [address] PCP - General Internal Medicine 01/17/17 Clarence Berry, AUDIO VISUAL ARTS DIRECTOR.DRUPAL PHP DEVELOPER [address] [place] [address] [place] Line Attendant Internal Medicine 07/21/24 Isabella Emerson AUDIO VISUAL ARTS DIRECTOR.DRIER ATTENDANT [address] [place] [address] [place] Line Attendant Internal Medicine 07/21/24 Track Moving Machine Operator Relationship Specialty Start Date End Date Alicia Blount MD [address] [place] [address] PCP - General Internal Medicine 01/17/17 Clarence Berry, AUDIO VISUAL ARTS DIRECTOR.DRUPAL PHP DEVELOPER [address] [place] [address] [place] Line Attendant Internal Medicine 07/21/24 Isabella Emerson APRN.DRIER ATTENDANT [address] [place] [address] [place] Line Attendant Internal Medicine 07/21/24 Shelby Dee, MANNY [address] [place] [id number] Primary Care Track Supervisor 10/20/24 10/20/24 Track Moving Machine Operator Relationship Specialty Start Date End Date Alicia Blount MD [address] [place] [address] PCP - General Internal Medicine 01/17/17 Clarence Berry, AUDIO VISUAL ARTS DIRECTOR.DRUPAL PHP DEVELOPER [address] [place] [address] [place] Line Attendant Internal Medicine 07/21/24 Isabella Emerson AUDIO VISUAL ARTS DIRECTOR.DRIER ATTENDANT [address] [facility] [place] [address] [facility] Internal Medicine 07/21/24 Track Moving Machine Operator Relationship Specialty Start Date End Date Alicia Blount MD [address] [facility] [place] [address] PCP - General Internal Medicine 01/17/17 Clarence Berry, AUDIO VISUAL ARTS DIRECTOR.DRUPAL PHP DEVELOPER [address] [facility] [place] [address] [facility] Internal Medicine 07/21/24 Isabella Emerson AUDIO VISUAL ARTS DIRECTOR.DRIER ATTENDANT [address] [facility] [place] [address] [facility] Internal Medicine 07/21/24 Track Moving Machine Operator Relationship Specialty Start Date End Date Alicia Blount MD [address] [facility] [place] [address] PCP - General Internal Medicine 01/17/17 Clarence Berry, AUDIO VISUAL ARTS DIRECTOR.DRUPAL PHP DEVELOPER [address] [facility] [place] [address] [facility] Internal Medicine 07/21/24 Isabella Emerson AUDIO VISUAL ARTS DIRECTOR.DRIER ATTENDANT [address] [facility] [place] [address] [facility] Internal Medicine 07/21/24 Track Moving Machine Operator Relationship Specialty Start Date End Date Alicia Blount MD [address] [facility] [place] [address] PCP - General Internal Medicine 01/17/17 Clarence Berry, AUDIO VISUAL ARTS DIRECTOR.DRUPAL PHP DEVELOPER [address] [place] [address] [place] Line Att[facility] Internal Medicine 07/21/24 Isabella Emerson APRN.DRIER ATTENDANT [address] [place] [address] [facility] Internal Medicine 07/21/24 Track Moving Machine Operator Relationship Specialty Start Date End Date Alicia Blount MD [address] [place] [address] PCP - General Internal Medicine 01/17/17 Clarence Berry, AUDIO VISUAL ARTS DIRECTOR.DRUPAL PHP DEVELOPER [address] [place] [address] [place] [facility] Att[facility] Internal Medicine 07/21/24 Isabella Emerson APRN.DRIER ATTENDANT [address] [place] [address] [place] Line Attendant Internal Medicine 11/04/24 Track Moving Machine Operator Relationship Specialty Start Date End Date Alicia Blount MD [address] [place] [address] PCP - General Internal Medicine 01/17/17 Clarence Berry, AUDIO VISUAL ARTS DIRECTOR.DRUPAL PHP DEVELOPER [address] [place] [address] [place] Line Attendant Internal Medicine 07/21/24 Isabella Emerson APRN.DRIER ATTENDANT [address] [place] [address] [place] Line Attendant Internal Medicine 11/04/24 Track Moving Machine Operator Relationship Specialty Start Date End Date Alicia Blount MD [address] [place] [address] PCP - General Internal Medicine 01/17/17 Clarence Berry, MASOUD.DRUPAL PHP DEVELOPER [address] [place] [address] [place] Line Attendant Internal Medicine 07/21/24 Isabella Emerson APRN.DRIER ATTENDANT [address] [place] [address] [place] Line Attendant Internal Medicine 11/04/24 Track Moving Machine Operator Relationship Specialty Start Date End Date Alicia Blount MD [address] [place] [address] PCP - General Internal Medicine 01/17/17 Clarence Berry, AUDIO VISUAL ARTS DIRECTOR.DRUPAL PHP DEVELOPER [address] [place] [address] [place] Line Attendant Internal Medicine 07/21/24 Isabella Emerson APRN.DRIER ATTENDANT [address] [place] [address] [place] Line Attendant Internal Medicine 07/21/24 10/31/24 Isabella Emerson AUDIO VISUAL ARTS DIRECTOR.DRIER ATTENDANT [address] [place] [address] [place] Line Attendant Internal Medicine 11/04/24 Track Moving Machine Operator Relationship Specialty Start Date End Date Alicia Blount MD [address] [place] [address] PCP - General Internal Medicine 01/17/17 Isabella Emerson AUDIO VISUAL ARTS DIRECTOR.DRIER ATTENDANT [address] [facility] [place] [address] [facility] Internal Medicine 11/04/24 Clarence Berry, AUDIO VISUAL ARTS DIRECTOR.DRUPAL PHP DEVELOPER [address] [place], [place] [address] [facility] Internal [facility] 12/31/24 Track Moving Machine Operator Relationship Specialty Start Date End Date Alicia Blount MD [address] [place], [place] [address] PCP - General Internal Medicine 01/17/17 Isabella Emerson AUDIO VISUAL ARTS DIRECTOR.DRIER ATTENDANT [address] [place], [place] [id number] [facility] Internal [facility] 11/04/24 Clarence Berry, AUDIO VISUAL ARTS DIRECTOR.DRUPAL PHP DEVELOPER [address] [place], [place] [address] [facility] Internal [facility] 12/31/24 Goals (unrecognized section and content) Goals may be documented in a n alternate sectionGoals may be documented in an alternate sectionGoals may be documented in an alternate sectionGoals may be documented in an alternate section INFORMATION SOURCE (unrecogn ized section and content) DATE CREATED AUTHOR 06/10/2023 [facility] DATE CREATED AUTHOR AUTHOR'S ORGANIZ ATION 03/28/2025 [facility] DATE CREATED AUTHOR AUTHOR'S ORGANIZ ATION 04/06/2025 [facility] FOR RECORDS PERTAINING TO PATIENTS WHO ARE [...] BE BASED ON THE PRIMARY CLINICAL RECORDS. [employer] provides no warranty or guarantee of the accuracy or completeness of information in this document.
[2025-04-07] MEDS: Multivitamin (Healthy Eyes) Capsule 1 CAP PO (23:26)
[2025-04-08] VITALS (10 sets, daily range): BP systolic 133–168; BP diastolic 59–94; PULSE 66–77; RESP 16; TEMP 36.4–36.7; O2SAT 96–98; BMI 25.7
[2025-04-08 05:52] LABS: Hematocrit 32.1 % (37-47); Hemoglobin 11.0 g/dL (12.0-15.0); Immature Granulocytes Count 0.020 X10^3/uL (0.0-0.0); Mean Corp Hgb Conc 34.3 g/dL (32-36); Mean Corpuscular Volume 89.7 fL (81-99); Mean Platelet Vol. 10.1 fl (6.2-12.0); NRBC Flagged by Analyzer 0 % (0-5); Platelet Count 236 K/mm3 (150-450); RBC Distribution Width CV 12.8 % (11.6-14.6); RBC Distribution Width SD 42.1 fl (35.1-43.9); Red Blood Count 3.58 M/mm3 (4.2-5.4); White Blood Count 8.1 K/mm3 (4.4-11.0)
[2025-04-08 06:25] LABS: AST(SGOT) 12 U/L (<=31); Alanine Aminotransfer ALT/SGPT 10 U/L (<=34); Albumin, Serum 3.5 g/dL (3.4-4.8); Alkaline Phosphatase 107 U/L (35-104); Anion Gap 10 (5-15); BUN 16 mg/dL (4-19); BUN/Creat Ratio 23.5 RATIO (10-20); Calcium,Total 8.6 mg/dL (7.6-11.0); Carbon Dioxide 24.1 mmol/L (21.0-32.0); Chloride 106 mmol/L (98-108); Estimated Creatinine Clearance 47.57 ml/min (50-250); Globulin 2.6 g/dL (2.2-4.2); Glucose 203 mg/dL (70-99); Potassium 4.4 mmol/L (3.3-5.1)
--- NOTE | 2025-04-08 08:19 | PCM.PN.HOSP ---
Reason for Visit Chief Complaint: Syncopal Event. Subjective Subjective Feeling well. Objective Data Objective Data Vital Signs: Vital Signs Temp Pulse Resp BP Pulse Ox O2 Del Method 36.6 C 68 16 168/82 H 98 Room Air 04/08/25 06:44 04/08/25 06:47 04/08/25 06:44 04/08/25 06:47 04/08/25 06:44 04/08/25 08:06 Oxygen Delivery Method Room Air Weight: 63.8 kg Body Mass Index (BMI) 25.7 Intake & Output: Intake and Output for Last 24 Hours 04/06/25 04/07/25 04/08/25 23:59 23:59 23:59 Intake Total 50 / 50 Output Total 600 / 600 Balance 50 / -150 -600 / -600 Lab / Micro Data 04/08/25 05:09 04/08/25 05:09 Labs: Laboratory Results - last 24 hr 04/07/25 16:45: WBC 8.7, RBC 3.76 L, Hgb 11.6 L, Hct 33.8 L, MCV 89.9, MCH 30.9, MCHC 34.3, RDW Std Deviation 42.3, RDW Coeff of Win 13.0, Plt Count 262, MPV 10.3, Immature Gran % (Auto) 0.100, Neut % (Auto) 71.7 H, Lymph % (Auto) 17.0 L, [place] % (Auto) 7.1, Eos % (Auto) 3.6, Baso % (Auto) 0.5, Absolute Neuts (auto) 6.3, Absolute Lymphs (auto) 1.48, Nucleated RBC % 0, Sodium 139, Potassium 4.4, Chloride 102, Carbon Dioxide 25.4, Anion Gap 11, BUN 23 H, Creatinine 0.76, Estim Creat Clear Calc 48.60 L, Est GFR (MDRD) Non-Af 78, BUN/Creatinine Ratio 29.8 H, Glucose 278 H, Calcium 8.9, Magnesium 1.8 04/07/25 17:52: Urine Color Yellow, Urine Clarity Cloudy, Urine pH 6.0, Ur Specific [place] 1.020, Urine Protein 30 H, Urine Glucose (UA) 1000 H, Urine Ketones Negative, Urine Occult Blood 10 H, Urine Nitrite Positive H, Urine Bilirubin Negative, Urine Urobilinogen Normal, Ur Leukocyte Esterase 100 H, Urine RBC 0-5 SEEN, Urine WBC 25-50 SEEN, Ur Squamous Epith Cells 25-50 SEEN, Urine Bacteria 1+, Urine Mucus 0 SEEN, Urine Yeast 2+ 04/07/25 23:22: POC Glucose 201 H 04/07/25 23:40: POC Glucose 201 H 04/08/25 05:09: WBC 8.1, RBC 3.58 L, Hgb 11.0 L, Hct 32.1 L, MCV 89.7, MCH 30.7, MCHC 34.3, RDW Std Deviation 42.1, RDW Coeff of Win 12.8, Plt Count 236, MPV 10.1, Immature Gran % (Auto) 0.200, Neut % (Auto) 60.9, Lymph % (Auto) 26.0, [place] % (Auto) 8.7, Eos % (Auto) 3.8, Baso % (Auto) 0.4, Absolute Neuts (auto) 5.0, Absolute Lymphs (auto) 2.11, Nucleated RBC % 0, Sodium 140, Potassium 4.4, Chloride 106, Carbon Dioxide 24.1, Anion Gap 10, BUN 16, Creatinine 0.68 L, Estim Creat Clear Calc 47.57 L, Est GFR (MDRD) Non-Af 87, BUN/Creatinine Ratio 23.5 H, Glucose 203 H, Calcium 8.6, Phosphorus 3.5, Total Bilirubin 0.32, AST 12, ALT 10, Alkaline Phosphatase 107 H, Total Protein 6.1, Albumin 3.5, Globulin 2.6, Albumin/Globulin Ratio 1.4, TSH 5.670 H 04/08/25 06:46: POC Glucose 189 H Radiography Diagnostic Testing: Radiology Impression Brain CT 04/07/25 16:30 IMPRESSION: 1. No acute intracranial abnormality. 2. Moderate-advanced chronic small-vessel ischemic changes. 3. No acute cervical spine fracture or malalignment. Reading Location: [facility] Cervical Spine CT 04/07/25 16:30 IMPRESSION: 1. No acute intracranial abnormality. 2. Moderate-advanced chronic small-vessel ischemic changes. 3. No acute cervical spine fracture or malalignment. Reading Location: [facility] Chest X-Ray 04/07/25 16:45 IMPRESSION: Chronic interstitial lung disease. No significant change. Reading Location: [id number] Physical Exam Const alert and no apparent distress HEENT HEENT Narrative: Abrasions on left forehead. Resp normal respiratory effort, no retractions, no use of accessory muscles and clear to auscultation bilaterally Cardio regular rate, regular rhythm, S1 normal heart sound and S2 normal heart sound GI normal to inspection, nondistended, normoactive bowel sounds, soft to palpation, non-tender and non-distended Neuro oriented x3 and CN's II-XII intact bilaterally Sensorium / Orientation: awake Assessment & Plan Assessment/Plan (1) Syncope and collapse: PLAN: suspect vasovagal. monitor on telemetry/ Orthostats negative. (2) Acute cystitis without hematuria: PLAN: on CTX. follow up UCx. (3) Facial abrasion: QUALIFIERS: Encounter type: initial encounter Qualified Code(s): S00.81XA - Abrasion of other part of head, initial encounter PLAN: wound care. PLAN: Plan Chronic conditions: CVA: ASA HTN: lisinopril, metoprolol HLP: statin DM2: on insulin pump VTE prophylaxis: LMWH. Charges/Coding Visit Charges Inpatient E&M: 98414 Subs Hosp L2
--- NOTE | 2025-04-08 09:48 | MDS.RN ---
Updated daughter Allen on POC. All questions answered at this time
[2025-04-08] MEDS: Lactobacillis Acidophilus 1 CAP PO (10:33)
[2025-04-08] MEDS: Multivitamin (Healthy Eyes) Capsule 1 CAP PO ×2 (10:33→21:46)
[2025-04-08] MEDS: Cholecalciferol (VIT D3) 25 MCG TABLET (1,000 UNITS) PO (10:36)
--- NOTE | 2025-04-08 11:05 | CASEMGMT ---
RN CM Face to Face with patient for initial transition planning/care coordination assessment. RN CM introduced self and role at [facility]. Patient lying in bed, alert and oriented. Patient willing to participate in assessment and is able to answer all questions appropriately. Care providers, pharmacy, and demographics verified. Strata: 2 PCP: Radha Specialists: Florencia, urology; Ya, neurology; Jaxon, commercial installer; Preferred Pharmacy: [facility] Insurance: Medicare, [employer] Prescription Benefit: yes Living Will/HPOA: yes, Josr Ortega LNOK: Living Arrangements: Patient lives with in a single story home with 2 steps and railing to enter the home. Patient is independent at home. Transportation: DME/HHC: Patient has shower chair, raised toilet, grab bars, cane, walker, and transport chair at home. Patient has been to [facility] in the past. Patient has had [facility] in the past. Patient wishes to discharge home, undecided about therapy at discharge, will monitor progress with therapy. Patient states she has no further needs or concerns at this time. CM to follow for discharge planning needs that may arise. Disposition Plan: Patient to discharge home with family support and follow-up plans in place. Will monitor for therapy at discharge. Barbara HUBER, RN, CM
[2025-04-08 11:53] LABS: Free T3 2.7 pg/mL (2.18-3.98)
--- NOTE | 2025-04-08 14:57 | CHAPLAIN ---
Type of Pastoral Visit _x__ Initial Visit ___ Follow-up Visit ___ On-call Visit ___ General Patient Visit ___ Spiritual Assessment ___ Family Conference ___ Bereavement ___ Rapid Response ___ Code Blue ___ Other (describe below) Pastoral Care Referral From _x__ Patient ___ Family ___ Nurse ___ Physician ___ Instrument Adjuster ___ Junior Web Designer ___ Other (describe below) Sacrament/Intervention _x__ Active listening ___ Anointing ___ Sabianism ___ Bereavement ___ Communion ___ Sharifa exploration ___ _x__ Life review _x__ Prayer ___ Reconciliation ___ Sacrament of Sick _x__ Supportive presence ___ Wedding ___ Other (describe below) Pastoral Comments patient gives details on her fall and resulting admission to the hospital; pt gives updates on life since her last admission; pt offers words about change and a move into home with daughter's family; pt says that she is accepting of this arrangement but her is having more difficulty with it; pt says that move has begun and that she is optimistic about the future; pt welcomes presence and prayer
[2025-04-08] MEDS: Insulin Glargine-YFGN 100 UNIT/ML Pen 35 UNIT SC (18:57)
[2025-04-08] MEDS: 0.9% Normal Saline (250mL Bag) 250 ML 15 ML IV (21:59)
[2025-04-09 03:33] VITALS: BP 150/72; PULSE 75; RESP 16; TEMP 36.7; O2SAT 98
[2025-04-09 03:36] VITALS: BMI 26.3
[2025-04-09 06:05] VITALS: BP 151/68; PULSE 71
--- NOTE | 2025-04-09 08:15 | PN.HOSP_ITS ---
Reason for Visit Chief Complaint: Syncopal Event. Subjective Subjective Feels well. Objective Data Objective Data Vital Signs: Vital Signs Temp Pulse Resp BP Pulse Ox O2 Del Method 36.7 C 71 16 151/68 H 98 Room Air 04/09/25 03:33 04/09/25 06:05 04/09/25 03:33 04/09/25 06:05 04/09/25 03:33 04/09/25 08:05 Oxygen Delivery Method Room Air Weight: 65.3 kg Body Mass Index (BMI) 26.3 Intake & Output: Intake and Output for Last 24 Hours 04/07/25 04/08/25 04/09/25 23:59 23:59 23:59 Intake Total 50 / 50 1935 / 2255 420 / 420 Output Total 600 / 1000 850 / 850 Balance 50 / -150 1335 / 1255 -430 / -430 Lab / Micro Data 04/08/25 05:09 04/08/25 05:09 Labs: Laboratory Results - last 24 hr 04/08/25 05:09: Free T4 1.00, Free T3 pg/dL 2.7 04/08/25 11:56: POC Glucose 319 H 04/08/25 17:32: POC Glucose 357 H 04/08/25 22:02: POC Glucose 312 H 04/09/25 03:50: Phosphorus 4.2 04/09/25 06:08: POC Glucose 322 H Micro: Microbiology 04/07/25 17:52 Urine, Clean Catch Urine Culture - Final Escherichia coli Physical Exam Const alert and no apparent distress HEENT head/scalp atraumatic and moist oral mucous membranes Resp normal respiratory effort, no retractions, no use of accessory muscles and clear to auscultation bilaterally Cardio regular rate, regular rhythm, S1 normal heart sound and S2 normal heart sound GI normal to inspection, nondistended, normoactive bowel sounds, soft to palpation, non-tender and non-distended Extremity normal to inspection, full ROM and no clubbing, cyanosis or edema Neuro Sensorium / Orientation: awake, alert, oriented to person, oriented to place and oriented to time Assessment & Plan Assessment/Plan (1) Syncope and collapse: PLAN: suspect vasovagal from UTI. monitor on telemetry/ Orthostats negative. (2) Acute cystitis without hematuria: PLAN: on CTX. UCx shows pansensitive E. coli. DC with nitrofurantoin. (3) Facial abrasion: QUALIFIERS: Encounter type: initial encounter Qualified Code(s): S00.81XA - Abrasion of other part of head, initial encounter PLAN: wound care. PLAN: Plan Chronic conditions: * CVA: ASA * HTN: lisinopril, metoprolol * HLP: statin * DM2: Uses an insulin pump at home but patient does not have that available so patient has been started on glargine. VTE prophylaxis: LMWH.
[2025-04-09 09:26] VITALS: BP 130/61; PULSE 69; RESP 16; TEMP 37; O2SAT 95
[2025-04-09] MEDS: Multivitamin (Healthy Eyes) Capsule 1 CAP PO (09:32)
[2025-04-09] MEDS: Lactobacillis Acidophilus 1 CAP PO (09:33)
[2025-04-09] MEDS: Cholecalciferol (VIT D3) 25 MCG TABLET (1,000 UNITS) PO (09:34)
[2025-04-09] MEDS: Insulin Glargine-YFGN 100 UNIT/ML Pen 35 UNIT SC (11:56)
--- NOTE | 2025-04-09 13:21 | DS.PCM_ITS ---
Providers Date of Admission: 04/07/25 Primary Care Physician: Dr. Liliya Garcia MD Reason For Visit: DEREK, DEHYDRATION AND SYNCOPE Diagnosis Discharge Diagnosis (1) Syncope and collapse: Status: Acute Code(s): R55 - Syncope and collapse Plan: suspect vasovagal from UTI. monitor on telemetry/ Orthostats negative. (2) Acute cystitis without hematuria: Status: Acute Code(s): N30.00 - Acute cystitis without hematuria Plan: on CTX. UCx shows pansensitive E. coli. DC with nitrofurantoin. (3) Facial abrasion: Status: Acute Code(s): S00.81XA - Abrasion of other part of head, initial encounter Qualifiers: Encounter type: initial encounter Qualified Code(s): S00.81XA - Abrasion of other part of head, initial encounter Plan: wound care. Plan Chronic conditions: * CVA: ASA * HTN: lisinopril, metoprolol * HLP: statin * DM2: Uses an insulin pump at home but patient does not have that available so patient has been started on glargine. VTE prophylaxis: LMWH. Medications at Discharge Home Medications cholecalciferol (vitamin D3) 25 mcg (1,000 unit) tablet 25 mcg PO DAILY 30 days #30 tabs 10/10/24 vit C 250 mg-vit E 90 mg-zinc 40 mg-copper 1 zo-epvsve-fkjdya capsule (PreserVision AREDS-2) 2 tab PO BID 11/11/24 famotidine 20 mg tablet 40 mg (2 x 20 mg) PO DAILY 30 days #60 tabs 11/27/24 Lactobacillus acidophilus (Acidophilus capsule) 1,200 mg PO QDAY 01/01/25 ascorbic acid (vitamin C) 500 mg tablet 500 mg PO QDAY 01/01/25 clonazepam 0.5 mg tablet 0.5 mg PO 2000 30 days #30 tabs 01/01/25 methenamine hippurate 1 gram tablet 1 g PO BID 01/01/25 Held on 04/09/25. Instructions: Resume on 04/12/25. vibegron 75 mg tablet (Gemtesa) 75 mg PO QDAY 01/01/25 Handicap Placard #1 ea 01/06/25 lisinopril 2.5 mg tablet 2.5 mg PO DAILY 30 days #90 tabs 01/28/25 aspirin 81 mg chewable tablet 162 mg PO BREAKFAST Heart health 02/04/25 clonidine 0.2 mg/24 hr weekly transdermal patch 0.2 mg transdermal We@1000 30 days #4 ea 02/16/25 duloxetine 60 mg capsule,delayed release 60 mg PO QAM #30 caps 02/27/25 insulin pump cart,auto,BT,G6/7 (Omnipod 5 G6-G7 Pods (Gen 5) subcutaneous cartridge) #30 ea 02/27/25 ipratropium bromide 42 mcg (0.06 %) nasal spray 2 spray NASAL BID 30 days #15 mL 03/02/25 metoprolol tartrate 50 mg tablet 50 mg PO TID 30 days #270 tabs 03/02/25 insulin lispro 100 unit/mL subcutaneous solution (Humalog U-100 Insulin) 70 unit (0.7 mL) subcut DAILY #20 mL 03/30/25 cyanocobalamin (vitamin B-12) 1,000 mcg capsule 1,000 mcg PO DAILY 03/31/25 atorvastatin 40 mg tablet 40 mg PO DAILY 30 days #90 tabs 04/06/25 nitrofurantoin macrocrystal 100 mg capsule 100 mg PO Q12H 4 days #8 caps 04/09/25 Hospital Course Operations None Procedures None Summary of Care Provided Hospital Course: Is a 84-year-old female presents with syncope. Patient fell and hit her head and had abrasions on her head. Patient was found to have a urinary tract infection that may have caused a vasovagal episode. Orthostats were negative and no events on telemetry. Patient has been doing well with therapy since. Plan is for discharge to home complete treatment for the urinary tract infection. Physical Exam Narrative Patient with bilateral cervical per muscle tenderness. Weight / BMI Weight Weight: 65.3 kg Body Mass Index (BMI) 26.3 ABG / Lab / Microbiology Data 04/08/25 05:09 04/08/25 05:09 Laboratory: Laboratory Results - last 24 hr 04/08/25 17:32: POC Glucose 357 H 04/08/25 22:02: POC Glucose 312 H 04/09/25 03:50: Phosphorus 4.2 04/09/25 06:08: POC Glucose 322 H 04/09/25 11:54: POC Glucose 342 H Microbiology: Microbiology 04/07/25 17:52 Urine, Clean Catch Urine Culture - Final Escherichia coli D/C Instructions DC O2, CPAP, BIPAP Needs Home O2 Discharge instructions: No Meaningful Use Info Meaningful Use Meaningful Use Diagnoses (Choose all that apply): None applicable Discharge Plan Admission Admit Date/Time: 04/07/25 19:40 Primary Reason for Your Visit: Syncope Attending Provider: Mk Benjamin Primary Care Provider: Liliya Garcia Consulting Providers: Nacho Bass Instructions Additional Instructions / Restrictions: You fainted likely from urinary tract infection which she will continue with antibiotics. You strained your neck when you fell and hit your head. Ice as needed Tylenol as needed. Discharge Orders/Prescriptions Prescriptions: New nitrofurantoin macrocrystal 100 mg capsule 100 mg PO Q12H 4 Days Qty: 8 0RF Rx Instructions: must administer with a meal/food Continued PreserVision AREDS-2 250-90-40-1 mg capsule 2 tab PO BID ascorbic acid (vitamin C) 500 mg tablet 500 mg PO QDAY Acidophilus Capsule 1,200 mg PO QDAY Gemtesa 75 mg tablet 75 mg PO QDAY clonazepam 0.5 mg tablet 0.5 mg PO 1999 30 Days Qty: 30 1RF aspirin 81 mg tablet,chewable 162 mg PO BREAKFAST duloxetine 60 mg capsule,delayed release(DR/EC) 60 mg PO QAM Qty: 30 5RF cholecalciferol (vitamin D3) 25 mcg (1,000 unit) Tablet 25 mcg PO DAILY 30 Days Qty: 30 0RF cyanocobalamin (vitamin B-12) 1,000 mcg capsule 1,000 mcg PO DAILY famotidine 20 mg tablet 40 mg PO DAILY 30 Days Qty: 60 4RF (DME) Handicap Placard See Rx Instructions .Route .MEDSUPPLY Qty: 1 0RF Rx Instructions: handicap placard expiring one year 01-06-26 lisinopril 2.5 mg tablet 2.5 mg PO DAILY 30 Days Qty: 90 0RF clonidine 0.2 mg/24 hr patch weekly 0.2 mg transdermal We@1000 30 Days Qty: 4 2RF Patient Comments: last changed 04/06/25 pm (DME) Omnipod 5 G6-G7 Pods (Gen 5) Cartridge See Rx Instructions .Route Qty: 30 3RF Rx Instructions: change every 3 days. ipratropium bromide 42 mcg (0.06 %) spray,non-aerosol 2 spray NASAL BID 30 Days Qty: 15 0RF metoprolol tartrate 50 mg tablet 50 mg PO TID 30 Days Qty: 270 0RF insulin lispro [Humalog U-100 Insulin] 100 unit/mL solution 70 unit subcut DAILY Qty: 20 8RF Patient Comments: states when her daughter fills it she fills it with 200 units and it lasts for 3 days. Rx Instructions: via insulin pump atorvastatin 40 mg tablet 40 mg PO DAILY 30 Days Qty: 90 0RF Held methenamine hippurate 1 gram tablet 1 g PO BID Hold Instructions: Resume on 04/12/25. Referrals / Follow Up: Liliya Garcia MD [Primary Care Provider] - Within 2 Weeks Disposition Disposition (needs filled in before D/C Order can be placed): Home, Self Care Charges/Coding Visit Charges Inpatient E&M: 74600 Disch Hosp
--- NOTE | 2025-04-09 14:10 | CASEMGMT ---
Patient has order for discharge. RN CM in to discuss needs at discharge. Patient states she will resume outpatient therapy at [facility]. Patient denies further needs or concerns. Patient had no further questions or concerns.
--- NOTE | 2025-04-09 14:22 | PHA.DC_ITS ---
Pharmacy [facility] has performed discharge medication counseling for this patient. The patient was counseled on the following discharge medications and changes in medications for homegoing review. - Nitrofurantoin The Reason for Use, instructions for use, and potential side effects were reviewed for all new medications. The patient's questions regarding all of their medications were answered. The patient was able to verbally demonstrate an understanding of their discharge medications.
[2025-04-09 15:18] VITALS: BP 144/74; PULSE 77; RESP 14; TEMP 36.9; O2SAT 99
[2025-04-09 15:19] VITALS: BP 144/74; PULSE 77
== END 2025-04-09 15:41 | disposition home or self-care (01) | DRG 690 ==
LOC: ED 19:36 → PCU 20:01
PROVIDERS: Admitting Provider Internal Medicine; Emergency Provider Emergency Medicine; PCP Internal Medicine
DX: N30.00 Acute cystitis without hematuria (principal); B96.20 Unspecified Escherichia coli [E. coli] as the cause of diseases classified elsewhere; E11.42 Type 2 diabetes mellitus with diabetic polyneuropathy; E78.5 Hyperlipidemia, unspecified; E66.3 Overweight; I10 Essential (primary) hypertension; G25.81 Restless legs syndrome; F41.8 Other specified anxiety disorders; S00.81XA Abrasion of other part of head, initial encounter; W19.XXXA Unspecified fall, initial encounter; K21.9 Gastro-esophageal reflux disease without esophagitis; Z79.4 Long term (current) use of insulin; G31.84 Mild cognitive impairment of uncertain or unknown etiology; M19.90 Unspecified osteoarthritis, unspecified site; M54.16 Radiculopathy, lumbar region; E86.0 Dehydration; H35.30 Unspecified macular degeneration; R55 Syncope and collapse; Z96.41 Presence of insulin pump (external) (internal); Y92.009 Unspecified place in unspecified non-institutional (private) residence as the place of occurrence of the external cause; N32.81 Overactive bladder; R26.81 Unsteadiness on feet; Z86.73 Personal history of transient ischemic attack (TIA), and cerebral infarction without residual deficits; Z79.82 Long term (current) use of aspirin; Z86.14 Personal history of Methicillin resistant Staphylococcus aureus infection; Z79.899 Other long term (current) drug therapy; Z90.2 Acquired absence of lung [part of]; Z68.26 Body mass index [BMI] 26.0-26.9, adult; Z85.118 Personal history of other malignant neoplasm of bronchus and lung; Z87.19 Personal history of other diseases of the digestive system
CPT/HCPCS: 36415; 70450; 71045; 72125; 80048; 80053; 81001; 82962; 83735; 84100; 84439; 84443; 84481; 85025; 87077; 87086; 87088; 87186; 93005; 94668; 97161; 97166; 99285

== ENCOUNTER 2025-06-22 15:29 | Inpatient (IN) | payer MEDICARE, OTHER, SELFPAY ==
[2025-06-22 15:33] VITALS: BP 161/92; PULSE 76; RESP 18; TEMP 35.8; O2SAT 98
[2025-06-22 15:36] VITALS: BMI 26.3
--- NOTE | 2025-06-22 16:23 | CT_ITS ---
PROCEDURE: CT SPINE THORACIC WITHOUT CONTRAST 06/22/2025 REASON FOR EXAM: TRAUMA TECHNIQUE: Procedure Code: CTSPTH Modality: CT Procedure: SPINE THORACIC WITHOUT CONTRAS Coronal and Sagittal reconstruction series were provided. One or more dose reduction techniques were used (e.g., Automated exposure control, adjustment of the mA and/or kV according to patient size, use of iterative reconstruction technique). RADIATION DOSE SUMMARY: DLP: 1595.22 mGycm COMPARISON: None. FINDINGS: Flexion-distraction injury of the upper thoracic spine with acute superior endplate compression fracture of T3 vertebral body, with roughly 50% height loss and mild retropulsion, with resultant focal kyphotic angulation at this level. There is splaying of the posterior elements dorsally with minimally displaced acute fractures of the T2 and T3 spinous processes. No subluxation. Osteopenia. No significant abnormality appreciated in the visualized paravertebral soft tissues. Atherosclerotic vascular calcifications. Multiple small calcified granulomas in the imaged spleen. Cardiomegaly with moderate coronary artery calcifications. Trace left pleural effusion. CT/Spine Thoracic without Contras IMPRESSION: Flexion-distraction injury of the upper thoracic spine with acute compression f racture of T3, and minimally displaced fractures of the T2 and T3 spinous processes. No subluxation. Slight dorsal retropulsio n at T3 with minimal spinal canal narrowing and focal kyphotic angulation. Reading Location: [id number]
--- NOTE | 2025-06-22 16:23 | CT_ITS ---
PROCEDURE: BRAIN/HEAD WITHOUT CONTRAST 06/22/2025 REASON FOR EXAM: INJURY TECHNIQUE: Procedure Code: CTBR Modality: CT Procedure: BRAIN/HEAD WITHOUT CONTRAST Coronal and Sagittal reconstruction series were provided. One or more dose reduction techniques were used (e.g., Automated exposure control, adjustment of the mA and/or kV according to patient size, use of iterative reconstruction technique. RADIATION DOSE SUMMARY: DLP: 1600 mGycm COMPARISON: 04/07/25 FINDINGS: There is no acute infarct, intracranial hemorrhage, or mass effect. There is no hydrocephalus or significant midline shift. There is moderate chronic microvascular ischemic changes and mild to moderate parenchymal volume loss. No acute, depressed calvarial fractures. No large scalp hematomas. The paranasal sinuses are clear. Bilateral lens surgeries. CT/Brain/Head without Contrast IMPRESSION: No acute intracranial process. Reading Location: [facility]
--- NOTE | 2025-06-22 16:24 | EDS_ITS ---
HPI HPI - Fall History of Present Illness Chief Complaint: Fall Informant: patient, spouse/S.O. and family (Daughter) Narrative Narrative: 85-year-old female presenting to the emergency room following a fall. Patient states that she is preparing to lift [address] to move in with her daughter was taking things out of a cabinet when she lost her balance due to balance issues and fell into her vacuum. She notes an injury to her forehead but states that she does not have a headache. She denies any neck pain. She states that she has pain in between her shoulder blades and it hurts to move. She denies any chest pain. She notes she had a couple small skin tears on her left arm that her put Band-Aids on. She denies any leg symptomology. No reported loss of consciousness. [facility] Medical History Diabetes GERD (gastroesophageal reflux disease) Hypertension Overactive bladder Nocturia Stress incontinence Urge incontinence Low iron Stroke/cerebrovascular accident Injury of head and neck Loss of consciousness Difficulty swallowing History of ulceration Cardiology follow-up encounter History of Holter monitoring Presence of insulin pump Osteopenia Proteinuria due to type 2 diabetes mellitus Lumbar radiculopathy, chronic Anxiety and depression Carotid artery stenosis Abnormal urinalysis Facial droop Chronic prescription benzodiazepine use Hypoxia Wears glasses MRSA infection History of Clostridium difficile infection Cancer Insulin dependent diabetes mellitus Walker as ambulation aid Arthritis Bladder disease Easy bruising Injury of back Back pain Unsteady gait Dietary restriction Non-smoker Chronic cough Hoarseness Leg cramps History of edema History of echocardiogram History of stress test Lumbar scoliosis Herniation of intervertebral disc at L3-L4 level Hyperlipidemia Debility Fatigue Mild cognitive impairment Overweight (BMI 25.0-29.9) Migraine without aura, not intractable, without status migrainosus Polyneuropathy Abnormal finding on thyroid function test Acute ischemic stroke 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 Acute gastritis Enlargement of lymph nodes Restless legs GERD (gastroesophageal reflux disease) Essential (primary) hypertension Home Medications ?Medication ?Instructions ?Recorded ?Last Taken ?Type cholecalciferol (vitamin D3) 25 25 mcg PO DAILY vitami n 30 days 10/10/24 06/22/25 Rx mcg (1,000 unit) tablet #30 tabs vit C 250 mg-vit E 90 mg-zinc 40 2 tab PO BID vitamin 11/11/24 06/22/25 History mg-copper 1 [id number] capsule (PreserVision AREDS-2) famotidine 20 mg tablet 40 mg (2 x 20 mg) PO DAILY r eflux 11/27/24 06/22/25 Rx 30 days #60 tabs Lactobacillus acidophilus 1,200 mg PO QDAY supplement 01/01/25 06/22/25 History (Acidophilus capsule) ascorbic acid (vitamin C) 500 mg 500 mg PO QDAY vitami n 01/01/25 06/22/25 History tablet methenamine hippurate 1 gram tablet 1 g PO BID infecti on 01/01/25 06/22/25 History vibegron 75 mg tablet (Gemtesa) 75 mg PO QDAY bladder 01/01/25 06/22/25 History Handicap Placard #1 ea 01/06/25 Unknown Rx aspirin 81 mg chewable tablet 162 mg PO BREAKFAST [facility] 02/04/25 06/22/25 History duloxetine 60 mg capsule,delayed 60 mg PO QAM [facility] #30 caps 02/27/25 06/22/25 Rx release insulin pump cart,auto,BT,G6/7 #30 ea 02/27/25 Unknown Rx (Omnipod 5 G6-G7 Pods (Gen 5) subcutaneous cartridge) metoprolol tartrate 50 mg tablet 50 mg PO TID blood pr essure 30 03/02/25 06/22/25 Rx days #270 tabs insulin lispro 100 unit/mL 70 unit (0.7 mL) subcut KATY LY 03/30/25 06/22/25 Rx subcutaneous solution (Humalog diabetes #20 mL U-100 Insulin) cyanocobalamin (vitamin B-12) 1,000 mcg PO DAILY vitam in 03/31/25 06/22/25 History 1,000 mcg capsule atorvastatin 40 mg tablet 40 mg PO DAILY cholesterol 3 0 days 04/06/25 06/22/25 Rx #90 tabs ipratropium bromide 42 mcg (0.06 2 spray NASAL BID all ergies 30 04/25/25 Unknown Rx %) nasal spray days #15 mL clonidine 0.2 mg/24 hr weekly 0.2 mg transdermal We@10 00 blood 06/15/25 06/15/25 Rx transdermal patch pressure 30 days #12 ea cyanocobalamin (vitamin B-12) .ROUTE 06/22/25 06/22/25 History Allergy/AdvReac Type Severity Reaction Status Date / Time shrimp Allergy Unknown unknown Verified 06/22/25 15:32 adhesive tape Allergy Hives/Rash Verified 06/22/25 15:32 ciprofloxacin (From Cipro) Allergy Photosensitivity Verified 06/22/25 15:32 & dermatitis pioglitazone (From Actos) Allergy Unknown Verified 06/22/25 15:32 codeine AdvReac Upset Verified 06/22/25 15:32 Stomach ibandronate sodium (From AdvReac GI Verified 06/22/25 15:32 Boniva) upset/esophageal burning ibuprofen AdvReac GI upset Verified 06/22/25 15:32 iodine AdvReac Vomiting Verified 06/22/25 15:32 lansoprazole AdvReac Diarrhea Verified 06/22/25 15:32 metformin AdvReac Diarrhea Verified 06/22/25 15:32 miconazole (From Neosporin AdvReac Rash/Bliste Verified 06/22/25 15:32 AF) rs nabumetone (From Relafen) AdvReac GI upset Verified 06/22/25 15:32 pantoprazole (From Protonix) AdvReac Diarrhea Verified 06/22/25 15:32 sucralfate (From Carafate) AdvReac feels Verified 06/22/25 15:32 poorly Family History Father Lung cancer Colon cancer Mother Mesothelioma Hypertension Grandmother Heart disease Other Arthritis Asthma Breast cancer CVA (cerebral vascular accident) Cancer Diabetes Hyperlipidemia Osteoporosis Surgical History Hx of colonoscopy Hx of right cataract extraction Hx of left cataract extraction History of lobectomy of lung History of lung biopsy H/O endoscopy Spinal injections S/P rotator cuff repair Social History adopted: No household members: spouse housing: house number of children: 4 current occupational status: retired current occupation: Worked at the [employer] pets and animals: No sexually active: No Smoking Status: Never smoker second hand exposure: No alcohol intake: never substance use type: does not use diet: diabetic caffeine: No what type of physical activity do you participate in: other details: PT & OT frequency: 1-2 times per week do you feel safe at home: Yes ROS ROS ED Constitutional Constitutional ED: Denies chills, fever(s) or weight loss Eyes Eyes: Denies change in vision or diplopia ENT ENT ED: Denies ear pain, rhinorrhea or sore throat Cardiovascular Cardiovascular: Denies chest pain, orthopnea, palpitations or racing heartbeat Respiratory/Chest Respiratory/Chest: Denies cough, dyspnea or orthopnea Gastrointestinal Gastrointestinal: Denies abdominal pain, diarrhea, nausea or vomiting Genitourinary Genitourinary ED: Denies dysuria, hematuria or urinary frequency Musculoskeletal Musculoskeletal: Reports back pain; Denies arthralgias, myalgias or neck pain Integumentary Reports Abrasions and other Details: Forehead contusion ; Denies abscess or rash Neurologic Neurologic: Denies headache(s), paresthesias or weakness Psychiatric Psychiatric: Denies anxiety, depression, suicidal ideation or suicidal thoughts Endocrine Endocrinology: Denies polydipsia, polyphagia or polyuria Allergic/Immunologic Allergic/Immunologic ED: Denies mouth swelling, tongue swelling or urticaria EXAM Physical Exam Const Vital Signs: 06/22/25 15:33 06/22/25 16:39 06/22/25 18:14 Temperature 96.4 F L Temperature Source Temporal Pulse Rate 76 73 Respiratory Rate 18 16 Respiratory Effort Normal Non-Labored Respiratory Depth Normal Respiratory Pattern Normal Blood Pressure 161/92 H 154/71 H Blood Pressure Mean 115 98 Pulse Ox 98 100 Oxygen Delivery Method Room Air Room Air Room Air Positive well nourished and well developed General Appearance ED: well developed and NAD HEENT Reports normocephalic and moist mucous membranes HEENT Narrative: There is a superficial forehead contusion with mild swelling to right forehead. Eyes PERRL and EOMs intact bilaterally Neck full ROM, no lymphadenopathy, supple and no JVD General: Negative for tenderness Resp normal respiratory effort and clear to auscultation bilaterally Cardio regular rate, regular rhythm and no murmurs GI normal to inspection, nondistended, normoactive bowel sounds and non-tender Palpation: soft Back/Spine no CVA tenderness Back/Spine Narrative: Painful range of motion with sitting forward and moving [id number]. Patient has tenderness palpation in the mid thoracic spine and paraspinal musculature. Thoracic Spine / Upper Back: pain with ROM Extremity Extremity Narrative: Superficial skin tears of around 1 cm to the left forearm General Extremety ED: Negative for edema General Extremity: Negative for edema Neuro oriented x3, CN's II-XII intact bilaterally, moves all extremities, no focal motor deficits and no sensory deficits noted [place] Coma Scale: document GCS findings Spontaneous Obeys Commands Oriented 15 Sensorium / Orientation: alert Motor Exam: strength 5/5 throughout Psych mental status grossly normal Mood & Affect: Negative for depressed or tearful Skin no rashes or lesions noted MDM MDM MDM Narrative Medical decision making narrative: Differential diagnosis includes skull fracture vertebral fracture intracranial hemorrhage/hematoma muscle strain back strain laceration skin tear contusion facial fracture. Based on the history and the physical CT of the brain as well as CT of the thoracic spine was obtained. CT was read by radiology and reviewed by myself. She is brain shows no acute intracranial process. CT of the thoracic spine demonstrates compression fracture of T3 as well as the spinous processes of T2 and T3. Patient received a Rising Star for pain initially. I spoke with the patient and her regarding the above findings. I also spoke with Dr. Molina who is on- call for orthopedic spine. Patient has significant mount of pain when she moves. I think it would be reasonable given her age and fall risk with the acute fractures that we admit her. History & Record Review Discussion w/independent historian: Patient, Family and Significant other Radiography Diagnostic Testing: Clinical Impression(s) from Imaging Studies Brain CT 06/22/25 16:23 IMPRESSION: No acute intracranial process. Reading Location: [facility] Thoracic Spine CT 06/22/25 16:23 IMPRESSION: Flexion-distraction injury of the upper thoracic spine with acute compression fracture of T3, and minimally displaced fractures of the T2 and T3 spinous processes. No subluxation. Slight dorsal retropulsion at T3 with minimal spinal canal narrowing and focal kyphotic angulation. Reading Location: [facility] Management Discussion w/another healthcare provider: Hospitalist (Dr. Hollingsworth) and [employer] (Dr Bonds) Discharge Plan Dx/Rx/DC Orders Clinical Impression: Compression fracture of T3 vertebra, Fall, Contusion of head, Fracture of spinous process of thoracic vertebra, Type 1 diabetes, Back pain Disposition Disposition: Acute Care Hospital [facility]
[2025-06-22] MEDS: HYDROcodone Bitartrate/Apap 5/325 Tablet PO (18:07)
[2025-06-22 18:14] VITALS: BP 154/71; PULSE 73; RESP 16; O2SAT 100
[2025-06-22 20:00] VITALS: BP 154/83; PULSE 81; RESP 18; TEMP 36.8; O2SAT 96
--- NOTE | 2025-06-22 20:06 | ED.RN ---
Dr. Hollingsworth informed this RN that he was ordering a midline for pt for tomorrow and will be changing meds to IM administration d/t difficulty getting iv. Lab called to [facility] for bloodwork ordered.
--- OUTSIDE RECORDS SUMMARY | 2025-06-22 20:26 | XMS RPT_ITS | CCD ---
Author Organization [facility]ini[facility] Care Team Providers Care Doubler Operator Name Role Phone Alicia Blount MD Primary Care Provider Dr. Alicia Blount Primary Care Provider Dr. Alicia Blount Referring Provider Dr. Reji Bran Attending Provider Dr. Genny Munguia Attending Provider [phone] [facility] VP BUSINESS DEVELOPMENT, VP BUSINESS DEVELOPMENT-C Johana Attending Provider [phone] [facility] VP BUSINESS DEVELOPMENT, VP BUSINESS DEVELOPMENT-C Johana Other Provider Dr. Jamar Chanel Attending Provider [facility] VP BUSINESS DEVELOPMENT, VP BUSINESS DEVELOPMENT-C Johana Referring Provider [phone] Alicia Blount MD Primary Care Provider Dr. Alicia Blount Primary Care Provider Dr. Alicia Blount Referring Provider [facility] VP BUSINESS DEVELOPMENT, VP BUSINESS DEVELOPMENT-C Johana Referring Provider [phone] Dr. Reji Bran Attending Provider Dr. Anna Espinoza Attending Provider Dr. Alicia Blount Primary Care Provider Dr. Alicia Blount Referring Provider Dr. Genny Munguia Attending Provider [phone] [facility] VP BUSINESS DEVELOPMENT, VP BUSINESS DEVELOPMENT-C Johana Attending Provider [phone] Dr. Hernando Pandya Attending Provider SABINO NELSON Attending Unavailable ALICIA BLOUNT Primary Care Unavailable RADHA BALDERRAMA Referring Unavailable Dr. Alicia Blount Primary Care Provider Dr. Alicia Blount Referring Provider Dr. Genny Munguia Attending Provider [facility] VP BUSINESS DEVELOPMENT, VP BUSINESS DEVELOPMENT-C Johana Attending Provider Dr. Hernando Pandya Attending [...] Care Provider Ellen Gonzalez RN Unavailable Berry COLLEGE ATHLETE.INSPECTOR OPEN DIE, Clarence Unavailable Idania COLLEGE ATHLETE.INTERMEDIATE DESIGNER, Isabella Unavailable Idania COLLEGE ATHLETE.INTERMEDIATE DESIGNER, Isabella Unavailable Leila BRYANT, Shelby Unavailable Idania COLLEGE ATHLETE.INTERMEDIATE DESIGNER, Isabella Unavailable Idania COLLEGE ATHLETE.INTERMEDIATE DESIGNER, Isabella Unavailable Berry COLLEGE ATHLETE.INSPECTOR OPEN DIE, Clarence Unavailable TALAMPAS, ALICIA D Attending Unavailable TALAMPAS, ALICIA D Primary Care Unavailable TALAMPAS, ALICIA D Attending Unavailable TALAMPAS, ALICIA D Primary Care Unavailable Sementi, Smitha Consulting Unavaila ble Sementi, Nikky Chopra Attending Unavaila ble Sementi, Smitha Admitting Unavaila ble Talampas, Alicia D Primary Care Unavailable Hernando Pandya Referring Unavailable Hernando Pandya Attending Unavailable Radha, Liliya Primary Care Unavailable Violette Don Attending Unavailable Gaines, Liilya Primary Care Unavailable Gaines, Liliya Referring Unavailable Violette Don Attending Unavailable Gaines, Liliya Primary Care Unavailable Gaines, Liliya Referring Unavailable CammydoHernando oneill Attending Unavailable Gaines, Liliya Primary Care Unavailable Radha, Liliya Referring Unavailable Radha, Liliya Attending Unavailable Radha, Liliya Referring Unavailable Radha, Liliya Primary Care Unavailable Talampas, Alicia D Primary Care Unavailable Jordon Jimenez Admitting Unavailable Jordon Jimenez Attending Unavailable Jordon Jimenez Consulting Unavailable Talampas, Alicia D Primary Care Unavailable Sementi, Nikky Chopra Consulting Unavaila ble Sementi, Nikky Chopra Attending Unavaila ble Sementi, Smitha Admitting Unavaila ble Nacho Bass Consulting Unavailable Nacho Bass Admitting Unavailable Radha, Liliya Primary Care Unavailable Mk Benjamin Attending Unavailable Mk Benjamin Consulting Unavailable Nacho Bass Attending Unavailable Violette Don Attending Unavailable Radha, Liliya Primary Care Unavailable Anna Espinoza Attending Unavailabl e Violette Don Referring Unavailable Radha, Liliya Primary Care Unavailable Violette Don Referring Unavailable Yehuda Magana Consulting Unavailable Violette Don Attending Unavailable Gaines, Liliya Primary Care Unavailable Nacho Bass Admitting Unavailable Nacho Bass Consulting Unavailable Radha, Liliya Primary Care Unavailable Mk Benjamin Attending Unavailable Hernando Pandya Referring Unavailable Hernando Pandya Attending Unavailable Radha, Liliya Primary Care Unavailable Violette Don Attending Unavailable Gaines, Liliya Primary Care Unavailable Genny Munguia Attending Unavailable Radha, Liliya Primary Care Unavailable Radha, Liliya Referring Unavailable Hernando Pandya Attending Unavailable BadHernando bermudez Referring Unavailable Radha, Liliya Primary Care Unavailable Talampas, Alicia D Referring Unavailable Talampas, Alicia D Primary Care Unavailable Lucius Silva NP Attending Unavailable Amaury Tucker Attending Unavailable Gaines, Liliya Primary Care Unavailable Radha, Liliya Referring Unavailable Ezra, Genny Attending Unavailable Talampas, Alicia D Primary Care Unavailable Frank Grace Attending Unavailable Frank Grace Consulting Unavailable Andrei, Denzel Chi Referring Unavailable Andrei, Denzel Chi Admitting Unavailable Andrei, Denzel Chi Consulting Unavailable Rubin Houser Attending Unavailable Rubin Houser Consulting Unavailable Talampas, Alicia D Primary Care Unavailable Rubin Houser Attending Unavailable Jordon Jimenez Admitting Unavailable Jordon Jimenez Consulting Unavailable Amaury Tucker Attending Unavailable Amaury Tucker Referring Unavailable Radha, Liliya Primary Care Unavailable Talampas, Alicia D Primary Care Unavailable Andrei, Denzel Chi Attending Unavailable Talampas, Alicia D Primary Care Unavailable Christian Hollingsworth Referring Unavailable Christian Hollingsworth Attending Unavailable Amaury Tucker Attending Unavailable Amaury Tucker Referring Unavailable Gaines, Liliya Primary Care Unavailable Talampas, Alicia D Primary Care Unavailable Gaines, Liliya Attending Unavailable Radha, Liliya Referring Unavailable Talampas, Alicia D Primary Care Unavailable Dada Do Referring Unavailable Dada Do Attending Unavailable Talampas, Alicia D Primary Care Unavailable SemenNikky lujan Attending Unavaila ble SementiNikky Referring Unavaila ble Talampas, Alicia D Primary Care Unavailable Genny Munguia Referring Unavailable Genny Munguia Attending Unavailable Aniket Guo Attending Unavailable Radha, Liliya Primary Care Unavailable Aniket Guo Referring Unavailable Talampas, Alicia D Primary Care Unavailable SemenNikky lujan Attending Unavaila ble SementiNikky Referring Unavaila ble Talampas, Alicia D Primary Care Unavailable Daya Adhikari Admitting Unavailable David Vila Consulting Unavailable Christian Hollingsworth Attending Unavailable Adeli, Amir Consulting Unavailable Hinduja, Sarah Consulting Unavailable Ez, Katia Consulting Unavailable Zha, Nissa Consulting Unavailable Ina, Lul Consulting Unavailable Jeny, Edilma Consulting Unavailable Bittar, Ilya Consulting Unavailable Torres, Jordyn Consulting Unavailable Zurita, Germán Consulting Unavailable Beigel, Mallory Consulting Unavailable Gusler, Amaury Consulting Unavailable Juan Carlos, Eulalia Consulting Unavailable Ridha, Mohamed Consulting Unavailable Zaghlouleh, Mhd Richar Consulting UnavailAmador Pitts Consulting Unavailable Colon, Rami Consulting Unavailable Meir, Abdullahi Consulting Unavailable Onofre, Leonie Consulting Unavailable Hannawi, Yousef Consulting Unavailable Daya Adhikari Consulting Unavailable Christian Hollingsworth Consulting Unavailable Talampas, Alicia D Primary Care Unavailable Frank Grace Consulting Unavailable Andrei, Denzel Chi Admitting Unavailable Andrei, Denzel Chi Attending Unavailable Talampas, Alicia D Primary Care Unavailable Sementai, Nikky Chopra Admitting Unavaila ble Sementi, Nikky Chopra Attending Unavaila ble Talampas, Alicia D Primary Care Unavailable White, Kat L Consulting Unavailable White, Kat L Referring Unavailable White, Kat L Admitting Unavailable Christian Hollingsworth Attending Unavailable Talampas, Alicia D Primary Care Unavailable SemenNikky lujan Attending Unavaila ble Sementi, Nikky Chopra Admitting Unavaila ble Talampas, Alicia D Primary Care Unavailable Daya Adhikari Admitting Unavailable David Vila Consulting Unavailable Christian Hollingsworth Attending Unavailable Adeli, Amir Consulting Unavailable Hinduja, Sarah Consulting Unavailable Ez, Katia Consulting Unavailable Zha, Nissa Consulting Unavailable Ina, Lul Consulting Unavailable Jeny, Edilma Consulting Unavailable Bittar, Ilya Consulting Unavailable Torres, Jordyn Consulting Unavailable Zurita, Germán Consulting Unavailable Beigel, Mallory Consulting Unavailable Gusler, Amaury Consulting Unavailable Juan Carlos, Eulalia Consulting Unavailable Ridha, Mohamed Consulting Unavailable Zaghlouleh, Mhd Richar Consulting UnavailAmador Pitts Consulting Unavailable Colon, Rami Consulting Unavailable Meir, Abdullahi Consulting Unavailable Onofre, Leonie Consulting Unavailable Hannawi, Yousef Consulting Unavailable Daya Adhikari Consulting Unavailable Talampas, Alicia D Primary Care Unavailable White, Kat L Consulting Unavailable White, Kat L Attending Unavailable White, Kat L Referring Unavailable White, Kat L Admitting Unavailable Loi, Abhinav Attending Unavailable TerhoneykyChristian Referring Unavailable Talampas, Alicia D Primary Care Unavailable Cooper Coates Attending Unavailable Tereletsky, Christian Referring Unavailable Talampas, Alicia D Primary Care Unavailable JaxonCooper Attending Unavailable Talampas, Alicia D Referring Unavailable Talampas, Alicia D Primary Care Unavailable Genny Munguia Attending Unavailable Talampas, Alicia D Primary Care Unavailable Daya Adhikari Referring Unavailable Mk Adhikari Attending Unavailable Talampas, Alicia D Primary Care Unavailable Sonido Walters Attending Unavailable Talampas, Alicia D Referring Unavailable Hernando Pandya Attending Unavailable Radha, Liliya Primary Care Unavailable Christian Hollingsworth Attending Unavailable Tereletsky, Christian Consulting Unavailable Talampas, Alicia D Primary Care Unavailable Daya Adhikari Attending Unavailable Daya Adhikari Admitting Unavailable David Vila Consulting Unavailable AdeMaye monteiro Consulting Unavailable Hinduharmony Sarah Consulting Unavailable Ez Katia Consulting Unavailable Nelson, Nissa Consulting Unavailable Ina, Lul Consulting Unavailable JenyHer petera Consulting Unavailable Ilya Guidry Consulting Unavailable Jordyn Torres Consulting Unavailable Germán Zurita Consulting Unavailable Mallory Brown Consulting Unavailable Amaury Youngblood Consulting Unavailable Eulalia Rangel Consulting Unavailable Lina Mcdonald Consulting Unavailable Kimberli Fernando Consulting UnavailAmador Pitts Consulting Unavailable Colon, Rami Consulting Unavailable Abdullahi Worley Consulting Unavailable Leonie Adhikari Consulting Unavailable Marcia Ugalde Consulting Unavailable Daya Adhikari Consulting Unavailable Talampas, Alicia D Referring Unavailable Genny Munguia Attending Unavailable Gaines, Liliya Primary Care Unavailable Hernando Pandya Attending Unavailable Hernando Pandya Referring Unavailable Radha, Liliya Primary Care Unavailable Talampas, Alicia D Referring Unavailable Radha, Liliya Attending Unavailable Gaines, Liliya Primary Care Unavailable Hernando Pandya Attending Unavailable Ya, Hernando Referring Unavailable Gaines, Liliya Primary Care Unavailable Michelle Zuleta Attending Unavailable Gaines, Liliya Primary Care Unavailable Talampas, Alicia D Referring Unavailable Talampas, Alicia D Primary Care Unavailable Genny Munguia Attending Unavailable Talampas, Alicia D Primary Care Unavailable Ya, Hernando Referring Unavailable Baddour, Hernando Attending Unavailable Talampas, Alicia D Primary Care Unavailable Baddour, Hernando Referring Unavailable Baddour, Hernando Attending Unavailable Talampas, Alicia D Referring Unavailable Talampas, Alicia D Primary Care Unavailable Gaines, Liliya Attending Unavailable Talampas, Alicia D Referring Unavailable Talampas, Alicia D Primary Care Unavailable Genny Munguia Attending Unavailable Violette Don Attending Unavailable Gaines, Liliya Primary Care Unavailable Radha, Liliya Referring Unavailable Allergies Allergy Classification Reported Allergen(s) Allergy Type Date of Onset Reaction(s) Facility Adhesive Tape (1 source) Adhesive Tape Substance Allergy 08-31-19 09 Hives [facility] Work Phone: Aspirin (1 source) Aspirin Drug Allergy 04-16-20 18 Contraindicati on-Medical Surgical [facility] Azole Antifungals (1 source) Miconazole Drug Allergy 12-30-19 21 Other: See Comments [facility] bacitracin / neomycin / polymyxin b (1 source) bacitracin / neomycin / polymyxin b Drug Allergy 08-31-19 09 Rash [facility] Ibandronate (1 source) Ibandronate Drug Allergy 12-05-19 09 GI Upset [facility] Iodine (and Iodine containting drugs) (1 source) Iodine Drug Allergy 08-25-19 09 Vomiting [facility] metFORMIN (1 source) metFORMIN Drug Allergy 05-10-20 11 Diarrhea [facility] Work Phone: NITROFURANTOIN, MACROCRYSTALS / Nitrofurantoin, Monohydrate (1 source) NITROFURANTOIN, MACROCRYSTALS / Nitrofurantoin, Monohydrate Drug Allergy 11-23-19 22 GI Upset, Anaphylaxis [facility] Work Phone: NSAIDs (2 sources) Ibuprofen Drug Allergy 03-22-20 06 GI Upset, Vomiting [facility] Opioid Agonists (1 source) Codeine Drug Allergy 08-24-19 06 GI Upset [facility] Work Phone: Proton Pump Inhibitors (2 sources) lansoprazole Drug Allergy 01-14-20 10 Diarrhea [facility] Quinolones (antibiotic) (1 source) Ciprofloxacin Drug Allergy 12-02-19 14 Other: See Comments [facility] shrimp allergenic extract (1 source) shrimp allergenic extract Drug Allergy 12-22-19 22 GI Upset [facility] Sucralfate (1 source) Sucralfate Drug Allergy 04-24-20 12 Other: See Comments [facility] Thiazolidinediones (glitazones) (2 sources) pioglitazone Drug Allergy 12-04-19 17 Swelling, Unknown [facility] Work Phone: (20 sources) Adhesive Tape; Translations: [ADHESIVE TAPE (ROSINS)] Propensity to adverse reactions to substance 08-31-19 09 Hives [facility] Work Phone: (20 sources) Aspirin; Translations: [ASPIRIN] Drug Allergy 04-16-20 18 Contraindicati on-Medical Surgical [facility] (20 sources) bacitracin / neomycin / polymyxin b; Translations: [NEOMYCIN-BACITRA STARLA-POLYMYXIN] Drug Allergy 08-31-19 09 Rash [facility] (20 sources) Ciprofloxacin; Translations: [CIPROFLOXACIN] Drug Allergy 12-02-19 14 Other: See Comments [facility] (20 sources) Codeine; Translations: [CODEINE] Drug Allergy 08-24-19 06 GI Upset [facility] Work Phone: (20 sources) Ibandronate; Translations: [IBANDRONATE] Drug Allergy 12-05-19 09 GI Upset [facility] (20 sources) Ibuprofen; Translations: [IBUPROFEN] Drug Allergy 03-22-20 06 GI Upset [facility] (20 sources) Iodine; Translations: [IODINE] Drug Allergy 08-25-19 09 Vomiting [facility] (20 sources) lansoprazole; Translations: [LANSOPRAZOLE] Drug Allergy 11-01-19 12 Diarrhea [facility] (20 sources) metFORMIN; Translations: [METFORMIN] Drug Allergy 05-10-20 11 Diarrhea [facility] Work Phone: (20 sources) nabumetone; Translations: [NABUMETONE] Drug Allergy 03-22-20 06 GI Upset, Vomiting [facility] Work Phone: (20 sources) NITROFURANTOIN, MACROCRYSTALS / Nitrofurantoin, Monohydrate; Translations: [NITROFURANTOIN MONOHYD/M-CRYST] Drug Allergy 11-23-19 22 GI Upset, Anaphylaxis [facility] Work Phone: (20 sources) pantoprazole; Translations: [PANTOPRAZOLE] Drug Allergy 01-14-20 10 Diarrhea [facility] (20 sources) pioglitazone; Translations: [PIOGLITAZONE HCL] Drug Allergy 12-04-19 17 Swelling [facility] Work Phone: (20 sources) Sucralfate; Translations: [SUCRALFATE] Drug Allergy 04-24-20 12 Other: See Comments [facility] (20 sources) shrimp allergenic extract; Translations: [SHRIMP] Drug Allergy 12-22-19 22 GI Upset [facility] (8 sources) Adhesive Tape; Translations: [adhesive tape] Allergy to substance 07-26-20 22 Hives/Rash [facility] (20 sources) Miconazole; Translations: [MICONAZOLE] Drug Allergy 12-30-19 21 Other: See Comments [facility] (20 sources) pioglitazone; Translations: [PIOGLITAZONE] Drug Allergy 12-30-19 21 Unknown [facility] (8 sources) Triiodobenzoic Acids; Translations: [IODINATED CONTRAST MEDIA] Propensity to adverse reactions 07-26-20 22 Vomiting [facility] (20 sources) Iodinated Contrast Media Drug Allergy 06-10-20 23 Vomiting [facility] Work Phone: (1 source) Ciprofloxacin Drug Allergy 05-29-20 25 [facility] (1 source) Codeine Drug Allergy 05-29-20 25 [facility] (1 source) Ibadronate Drug Allergy 05-29-20 25 [facility] (1 source) Ibuprofen Drug Allergy 05-29-20 25 [facility] (1 source) Iodine Drug Allergy 05-29-20 25 [facility] (1 source) lansoprazole Drug Allergy 05-29-20 25 [facility] (1 source) metFORMIN Drug Allergy 05-29-20 25 [facility] (1 source) Miconazole Drug Allergy 05-29-20 25 [facility] (1 source) nabumetone Drug Allergy 05-29-20 [facility] (1 source) pantoprazole Drug Allergy 05-29-20 [facility] (1 source) pioglitazone Drug Allergy 05-29-20 [facility] (1 source) Shrimp product Drug allergy (disorder) 05-29-20 [facility] (1 source) Sucralfate Drug Allergy 05-29-20 [facility] (1 source) Iodinated Contrast Media Drug allergy (disorder) 07-10-20 [facility] Medications Current Medications Medication Drug Class(es) Dates Sig (Normalized) Sig (Original) acetaminophen 500 mg oral tablet (1 source) Start: 06-20-2023 take 1000 mg by mouth every six hours as needed Acetaminophen Active 1000 MG PO EVERY 6 HOURS NEEDED 0 June 20, 2023 12:00am [id number] 200 actuat albuterol 0.09 mg/actuat metered dose [...] on above: INHALE 2 PUFFS BY MO [facility] EVERY 6 HOURS NEEDED FOR SHORTNESS OF [...] 2.5 mg oral capsule (20 sources) Start: 0 Biotin 2,500 mcg cap Nurse reports [...] Start: 03-13-2017 take 1000 [IU] by mo [facility] once daily Cholecalciferol (Vitamin D3) Active 1000 UNIT PO DAILY March 12, 2017 11:00pm Comment on above: Take 2 capsules by m [facility] once daily. collagen, bovine, 100 % [...] C docusate sodium 50 mg / sennosides, senior care 8.6 mg oral tablet (1 source) Start: [...] Duloxetine Discontinued 30 MG PO AT BEDTIME 7 February 05, 2023 11:00pm March 05, 2023 [...] above: Take 1 capsule by mo ut[facility] DAILY (6 AM). Take 1 capsule by mo [facility] daily at 6 am. 24 hr fesoterodine [...] joe th once daily. As directed for leg swelling [...] on above: Take 1 capsule by mo [facility] twice daily for 180 days. Morning and bedtime Take 1 capsule by mo [facility] two times a day for 180 days. [...] above: Take 1 tablet by joe twice daily for 10 days. 3 ml [...] (Dr. Genny Munguia refjere) Also has SSI. 10/01/2023 Active Start: 06-10-2023 [...] directed. (Dr. Genny funes) Also has SSI. 09/30/2022 10/01/2023 Discontinued Start: [...] with dinner. Adjust as directed. (Dr. Genny fuens) Also has SSI. 3 ml insulin lispro 100 unt/ml pen injector (1 source) Insulin Analog Start: 06-20-20 23 Insulin Lispro (Humalog Kwikpen Insulin) 100 unit/mL Insulin Pen Active 20 UNIT SC THREE TIMES DAILY BEFORE MEALS 0 June 20, 2023 12:00am insulin lispro 25 unt/ml / insulin lispro protamine, human 75 unt/ml injectable suspension (17 sources) Insulin Analog Start: 10-22-19 25 insulin 75/25 lispro protamine-lispro units/mL (HUMALOG MIX 75-25,U-100,INSULN ) 100 units/mL suspension 10 units TID and a sliding scale s-- he will get 1 units for every 50 points she is over 200. 10/21/2024 Active lactobacillus acidophilus [id number] unt oral capsule (20 sources) Start: 11-23-19 End: 03-18-20 24 take 1 capsule by mouth once daily Acidophilus-Bif Animalis 10 billion cell cap Take 1 capsule by mouth once daily. 90 capsule 3 03/18/2024 Active Comment on above: Take 1 capsule by [facility] once daily. LORazepam 1 mg oral tablet (20 sources) Benzodiazepine Start: 06-05-20 End: 09-03-19 25 LORazepam (ATIVAN) 1 mg tablet Indications: Anxiety [...] Take 1 tablet by joe once daily. Miscellaneous Medical Supply misc (20 [...] long-term current use of insulin multivitamin-folic acid-biotin (RDVP-MXAX-PDCAY, YL-QQ-FAEAKE,) 400-2,000 mcg tab (20 sources) multivitamin-fol ic acid-biotin (MZUM-CIOS-HITAE, OH-UY-FPMHXY,) 400-2,000 mcg tab Take by mouth. Active multivitamin-fol ic acid-biotin (GQPK-LFTW-OUSVY, AL-FF-MZCAKD,) 400-2,000 mcg tab Take by mouth. 0 [...] Inhibitor Antibacterial, Sulfonamide Antimicrobial Start: 12-09-19 End: 12-16-19 take 1 tablet by mouth twice daily [...] right foot, initial encounter , Contusion of sabianist region, initial encounter , Injury of coccyx, [...] right foot, initial encounter , Contusion of sabianist region, initial encounter , Injury of coccyx, [...] above: Take 1 tablet by joe twice daily as needed for pain for [...] on above: Take 2 capsules by m out three times daily as needed for up [...] Nonsteroidal Anti-inflammatory Drug Start: 10-10-19 End: 10-01-19 24 take 1 capsule by mouth once daily at mealtime celecoxib (CELEBREX) 200 mg capsule Take 1 capsule by mouth once daily. Take with food 30 capsule 5 10/10/2022 10/01/2023 Discontinued (Other) Comment on above: Take 1 capsule by [facility] once daily. Take with food cephalexin 250 [...] mg by mouth once daily. estrogens, conjugated (senior care) 0.625 mg/ml vaginal cream (20 sources) Estrogen [...] by joe once daily. As directed for allergies fluticasone [...] subc utaneously daily at bedtime. (Dr. Genny pinedaills) Inject 14 Units subc utaneously daily at bedtime. (Dr. Genny funes) Inject 20 Units subc utaneously daily at bedtime. (Dr. Genny Munguia refills) ketoconazole 20 mg/ml topical cream (20 sources) [...] Take 1 tablet by joe twice daily. Vsgmndyl-Wff-Pplzm Acid-Biotin (Hair,Skin And Nails(Fa-Biotin)) 66.7-1,000 mcg tablet (7 sources) Start: 03-15-20 End: 06-10-20 take 66.7-1000 ug by mouth once Kudxyiaa-Luk-Czhfj Acid-Biotin (Hair,Skin And Nails(Fa-Biotin)) 66.7-1,000 mcg tablet Discontinued TABLET PO March 14, 2021 11:00pm June 10, 2023 5:28pm Start: 03-15-2021 End: 06-10-2023 take 66.7-1000 ug by mouth once Meigaxdg-Rrp-Deppg Acid-Biotin (Hair,Skin And Nails(Fa-Biotin)) 66.7-1,000 mcg tablet Discontinued TABLET PO March 15, 2021 12:00am June 10, 2023 6:28pm Start: 03-15-2021 take 66.7-1000 ug by mouth once Bccmabxj-Ima-Goupr Acid-Biotin (Hair,Skin And Nails(Fa-Biotin)) 66.7-1,000 mcg tablet [...] PEP device Act aura 0 .ROUTE .MEDSUPPLY March 30, 2020 12:00am with training Start: 03-30-2020 PEP device Act aura 0 .ROUTE .MEDSUPPLY March 29, 2020 11:00pm with training perflutren [...] on above: Take 1 capsule by mo [facility] twice daily for 180 days. prevision ardeds [...] diabetes mellitus without complications] Onset: 07-02-2023 Chronic Diabetes mellitus without complication (2 sources) Presence of insulin pump (external) (internal); Translations: [Hyperglycemia, unspecified] Onset: 09-02-2024 Episodic Disorders of lipid metabolism (20 sources) Hyperlipidemia; Translations: [Hyperlipidemia, unspecified] Onset: 12-14-2009 Resolved: 11-11-2014 11-06-2016 Chronic E Codes: Fall (1 source) Fall; Translations: [Unspecified fall, initial encounter] Episodic Esophageal disorders (20 sources) Gonzales's esophagus; Translations: [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] Onset: 10-08-2014 Resolved: 10-08-2014 09-18-2007 Chronic Essential hypertension (20 sources) Hypertensive disorder; Translations: [Essential (primary) hypertension] Onset: 08-04-2013 Chronic Fluid and electrolyte disorders (20 sources) Dehydration; Translations: [Dehydration] Onset: 07-02-2023 06-13-2023 Episodic Gastritis and duodenitis (1 source) Chronic [...] Episodic Immunizations and screening for infectious disease (3 sources) Suspected disease caused by 2019-nCoV; Translations: [Suspected COVID-19 virus infection] Onset: 05-05-2025 Episodic Late effects of cerebrovascular disease (3 [...] (6 sources) Patient encounter status; Translations: [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] Episodic Other aftercare (7 sources) Long-term current use of insulin; 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: [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] 03-03-2020 Episodic Other and ill-defined cerebrovascular disease (7 sources) 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 disease; Translations: [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 disease, unspecified] 12-29-2020 Chronic Other and ill-defined cerebrovascular disease (6 sources) 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 disease, unspecified; Translations: [Unspecified cerebrovascular disease] Onset: 09-19-2024 Chronic Other and ill-defined heart disease (1 source) Other ill-defined heart diseases; Translations: [Other ill-defined heart diseases] Onset: 09-19-2024 Chronic Other bone disease and musculoskeletal deformities (1 source) Other specified disorders of bone density and structure, multiple sites; 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 disorders of bone density and structure, multiple sites] Onset: 06-04-2025 Episodic Other circulatory disease (7 sources) History of [...] specified soft tissue disorders] 07-04-2024 Episodic Other disorders of stomach and duodenum [...] injury of head, subsequent encounter] Episodic Other injuries and conditions due to external causes (1 source) Unspecified injury of head, initial encounter; Translations: [Unspecified injury of head, initial encounter] Onset: 04-09-2025 Episodic Other lower respiratory disease (8 sources) Dyspnea; Translations: [Dyspnea, unspecified] 07-26-2022 Episodic Other lower respiratory disease (1 source) Cough; Translations: [Acute cough] 02-12-2024 Episodic Other nervous system disorders (20 sources) [...] of gait and mobility] 07-13-2020 Episodic Other nutritional; endocrine; and metabolic disorders [...] displacement, lumbar region] Chronic Superficial injury; contusion (7 sources) Contusion of right foot; Translations: [Contusion of right foot, initial encounter] Onset: 04-09-2025 Episodic Syncope (5 sources) Syncope; Translations: [Syncope and collapse] Onset: 07-15-2024 01-31-2024 Episodic Thyroid disorders (1 source) Hypothyroidism, [...] Classification Problem Date Documented Da te Episodic/Chronic Cancer of bronchus; lung (20 sources) History of malignant neoplasm of thoracic cavity structure; Translations: [Personal history of other malignant neoplasm of bronchus and lung] Onset: 3 06-13-2023 Episodic Cataract (20 sources) Cataract; Translations: [Unspecified cataract] Onset: 3 Resolved: 7 08-08-2021 Chronic Diseases of mouth; excluding dental (20 sources) Xerostomia; Translations: [Dry mouth, unspecified] Onset: 7 11-06-2016 Episodic Disorders of teeth and jaw (20 sources) Temporomandibular joint disorder; Translations: [Unspecified temporomandibular joint disorder, unspecified side] Onset: 9 11-22-2018 Episodic Esophageal disorders (20 sources) Esophagitis; Translations: [Esophagitis, unspecified] Onset: 2 11-23-2011 Episodic Gastritis and duodenitis (20 sources) Acute [...] unspecified] Onset: 5 04-18-2019 Episodic Other aftercare (2 sources) [facility] (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; Translations: [[facility] (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] Onset: 5 Episodic Other aftercare (1 source) 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; Translations: [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] Onset: 5 Episodic [...] weakness (generalized); Translations: [Muscle weakness (generalized)] Onset: 5 Episodic Other connective tissue disease (1 source) Facial weakness; Translations: [Facial weakness] Onset: 5 Episodic Other connective tissue disease (1 source) Pain in right lower leg; Translations: [Pain in right lower leg] Onset: 4 Episodic Other disorders of stomach [...] Pleurodynia; Translations: [Pleurodynia] Onset: 5 Episodic Other lower respiratory disease (2 sources) Hypoxemia; Translations: [Hypoxemia] Onset: 4 Episodic Other nervous system disorders (1 source) Unspecified abnormalities of gait and mobility; Translations: [Unspecified abnormalities of gait and mobility] Onset: 5 Episodic Other nervous system disorders [...] Test Name Value Interpretation Reference Range Facility Endocrinology Visit Reporton 05-29-2025 Endocrinology Visit Report Normal [facility] Office Visit Reporton 2024 Office Visit Report Normal [facility] Office Visit Reporton 2024 Office Visit Report Normal [facility] Office Visit Report Normal [facility] Office Visit Reporton 2024 Office Visit Report Normal [facility] Internal Medicine Office Vis iton 05-04-2025 Internal Medicine Office Visit Normal [facility] Office Visit Reporton 2024 Office Visit Report Normal [facility] Office Visit Reporton 2024 Office Visit Report Normal [facility] Bedside Glucoseon 04-09-2025 FINGERSTICK GLU 342 mg/dL High 74-106 [facility] Comment on above: Result Comment: OLGA GEMENT OF PATIENT CARE PER NURSING PROTOCOL Performed By: #### L 501.080 ####[facility] [address] [place], [address] FINGERSTICK GLU 322 mg/dL High 74-106 [facility] Comment on above: Result Comment: OLGA GEMENT OF PATIENT CARE PER NURSING PROTOCOL Performed By: #### L 501.080 ####[facility] [address] [place], [address] Phosphoruson 04-09-2025 Phosphate [Mass/Vol] 4.2 mg/dL Normal 2.7-4.5 [facility] Comment on above: Performed By: #### L 501.2300 ####[facility] [address] [place], [address] Urine Cultureon 04-09-2025 URC Normal [facility] Comment on above: Performed By: #### M 100.2200 ####[facility] [address] [place], [address] Bedside Glucoseon 04-08-2025 FINGERSTICK GLU 312 mg/dL High 74-106 [facility] Comment on above: Result Comment: OLGA GEMENT OF PATIENT CARE PER NURSING PROTOCOL Performed By: #### L 501.080 ####[facility] [address] [place], [address] FINGERSTICK GLU 357 mg/dL High [address] [place] [address] Comment on above: Result Comment: OLGA GEMENT OF PATIENT CARE PER NURSING PROTOCOL Performed By: #### L 501.080 ####[facility] [address] [place], [address] FINGERSTICK GLU 319 mg/dL High [facility]106 [facility] Comment on above: Result Comment: OLGA GEMENT OF PATIENT CARE PER NURSING PROTOCOL Performed By: #### L 501.080 ####[facility] [address] [place], [address] FINGERSTICK GLU 189 mg/dL High [address] [place] [address] Comment on above: Result Comment: OLGA GEMENT OF PATIENT CARE PER NURSING PROTOCOL Performed By: #### L 501.080 ####[facility] [address] [place], [address] FINGERSTICK GLU 201 mg/dL High [facility]106 [facility] Comment on above: Result Comment: OLGA GEMENT OF PATIENT CARE PER NURSING PROTOCOL Performed By: #### L 501.080 ####[facility] [address] [place], [address] CBC W/Diff, Automatedon 08-2 -2024 Absolute Lymph 2.11 X10 3/uL Normal 0.83-4.51 [facility] Comment on above: Performed By: #### L 500.4050, L501.9520, L501.2300, L100.0100 ####[facility] [address] [place], [address] Absolute Neut 5.0 X10 3/uL Normal 2.0-7.7 [facility] Comment on above: Performed By: #### L 500.4050, L501.9520, L501.2300, L100.0100 ####[facility] [address] [place], [address] Basophils/100 WBC (Bld) 0.4 % Normal 0-1 [facility] Comment on above: Performed By: #### L 500.4050, L501.9520, L501.2300, L100.0100 ####[facility] [address] [place], [address] Eosinophils/100 WBC (Bld) 3.8 % Normal 0-5 [facility] Comment on above: Performed By: #### L 500.4050, L501.9520, L501.2300, L100.0100 ####[facility] [address] [place], [address] Erythrocyte distribution width (RBC) [Ratio] 12.8 % Normal 11.6-14.6 [facility] Comment on above: Performed By: #### L 500.4050, L501.9520, L501.2300, L100.0100 ####[facility] [address] [place], [address] Hematocrit (Bld) [Volume fraction] 32.1 % Low 37-47 [facility] Comment on above: Performed By: #### L 500.4050, L501.9520, L501.2300, L100.0100 ####[facility] [address] [place], [address] Hemoglobin (Bld) [Mass/Vol] 11.0 g/dL Low 12.0-15.0 [facility] Comment on above: Performed By: #### L 500.4050, L501.9520, L501.2300, L100.0100 ####[facility] [address] [place], [address] IG% 0.200 Normal 0.0-0.9 [facility] Comment on above: Result Comment: IG% - Immature Granulocytes (promyelocytes, myelocytes andmetamyelocytes) > 1% indicates that a LEFT SHIFT is Present. Performed By: #### L 500.4050, L501.9520, L501.2300, L100.0100 ####[facility] [address] [place], [address] Lymphocytes/100 WBC (Bld) 26.0 % Normal 19-41 [facility] Comment on above: Performed By: #### L 500.4050, L501.9520, L501.2300, L100.0100 ####[facility] [address] [place], [address] MCH (RBC) [Entitic mass] 30.7 pg Normal 27.0-32.0 [facility] Comment on above: Performed By: #### L 500.4050, L501.9520, L501.2300, L100.0100 ####[facility] [address] [place], [address] MCHC (RBC) [Mass/Vol] 34.3 g/dL Normal 32-36 [facility] Comment on above: Performed By: #### L 500.4050, L501.9520, L501.2300, L100.0100 ####[facility] [address] [place], [address] MCV (RBC) [Entitic vol] 89.7 fL Normal 81-99 [facility] Comment on above: Performed By: #### L 500.4050, L501.9520, L501.2300, L100.0100 ####[facility] [address] [place], [address] Monocytes/100 WBC (Bld) 8.7 % Normal 0-10 [facility] Comment on above: Performed By: #### L 500.4050, L501.9520, L501.2300, L100.0100 ####[facility] [address] [place], [address] Neutrophils/100 WBC (Bld) 60.9 % Normal 47-70 [facility] Comment on above: Performed By: #### L 500.4050, L501.9520, L501.2300, L100.0100 ####[facility] [address] [place], [address] Nucleated RBC (Bld) [#/Vol] 0 10*3/uL Normal 0-5 [facility] Comment on above: Performed By: #### L 500.4050, L501.9520, L501.2300, L100.0100 ####[facility] [address] [place], [address] Platelet mean volume (Bld) [Entitic vol] 10.1 fL Normal 6.2-12.0 [facility] Comment on above: Performed By: #### L 500.4050, L501.9520, L501.2300, L100.0100 ####[facility] [address] [place], [address] Platelets (Bld) [#/Vol] 236 10*3/uL Normal 150-450 [facility] Comment on above: Performed By: #### L 500.4050, L501.9520, L501.2300, L100.0100 ####[facility] [address] [place], [address] RBC (Bld) [#/Vol] 3.58 10*6/uL Low 4.2-5.4 [facility] Comment on above: Performed By: #### L 500.4050, L501.9520, L501.2300, L100.0100 ####[facility] [address] [place], [address] RDW SD 42.1 fl Normal 35.1-43.9 [facility] Comment on above: Performed By: #### L 500.4050, L501.9520, L501.2300, L100.0100 ####[facility] [address] [place], [address] WBC (Bld) [#/Vol] 8.1 10*3/uL Normal 4.4-11.0 [facility] Comment on above: Performed By: #### L 500.4050, L501.9520, L501.2300, L100.0100 ####[facility] [address] [place], [address] Comprehensive Metabolic [facility] 04-08-2025 Albumin [Mass/Vol] 3.5 g/dL Normal 3.4-4.8 [facility] Comment on above: Performed By: #### L 500.4050, L501.9520, L501.2300, L100.0100 ####[facility] [address] [place], [address] Albumin/Globulin [Mass ratio] 1.4 {ratio} Normal 0.9-2.4 [facility] Comment on above: Performed By: #### L 500.4050, L501.9520, L501.2300, L100.0100 ####[facility] [address] [place], [address] ALK PHOS 107 U/L High 35-104 [facility] Comment on above: Performed By: #### L 500.4050, L501.9520, L501.2300, L100.0100 ####[facility] [address] [place], [address] ALT [Catalytic activity/Vol] 10 U/L Normal <=34 [facility] Comment on above: Performed By: #### L 500.4050, L501.9520, L501.2300, L100.0100 ####[facility] [address] [place], [address] AST [Catalytic activity/Vol] 12 U/L Normal <=31 [facility] Comment on above: Performed By: #### L 500.4050, L501.9520, L501.2300, L100.0100 ####[facility] [address] [place], [address] Bilirubin [Mass/Vol] 0.32 mg/dL Normal 0.00-1.30 [facility] Comment on above: Performed By: #### L 500.4050, L501.9520, L501.2300, L100.0100 ####[facility] [address] [place], [address] BUN/CRE 23.5 RATIO High 10-20 [facility] Comment on above: Performed By: #### L 500.4050, L501.9520, L501.2300, L100.0100 ####[facility] [address] [place], [address] Calcium [Mass/Vol] 8.6 mg/dL Normal 7.6-11.0 [facility] Comment on above: Performed By: #### L 500.4050, L501.9520, L501.2300, L100.0100 ####[facility] [address] [place], [address] Chloride [Moles/Vol] 106 mmol/L Normal 98-108 [facility] Comment on above: Performed By: #### L 500.4050, L501.9520, L501.2300, L100.0100 ####[facility] [address] [place], [address] CO2 [Moles/Vol] 24.1 mmol/L Normal 21.0-32.0 [facility] Comment on above: Performed By: #### L 500.4050, L501.9520, L501.2300, L100.0100 ####[facility] [address] [place], [address] Creatinine [Mass/Vol] 0.68 mg/dL Low 0.70-1.20 [facility] Comment on above: Performed By: #### L 500.4050, L501.9520, L501.2300, L100.0100 ####[facility] [address] [place], [address] ECRCL 47.57 ml/min Low 50-250 [facility] Comment on above: Performed By: #### L 500.4050, L501.9520, L501.2300, L100.0100 ####[facility] [address] [place], [address] GAP 10 Normal 5-15 [facility] Comment on above: Performed By: #### L 500.4050, L501.9520, L501.2300, L100.0100 ####[facility] [address] [place], [address] GFR/1.73 sq M.predicted among non-blacks MDRD (S/P/Bld) [Vol rate/Area] 87 mL/min/{1.73_m2} Normal >60 [facility] Comment on above: Result Comment: mL/m in/1.73m2 CKD-EPI Creatinine Equation (2020) Performed By: #### L 500.4050, L501.9520, L501.2300, L100.0100 ####[facility] [address] [place], [address] Globulin (S) [Mass/Vol] 2.6 g/dL Normal 2.2-4.2 [facility] Comment on above: Performed By: #### L 500.4050, L501.9520, L501.2300, L100.0100 ####[facility] [address] [place], [address] Glucose [Mass/Vol] 203 mg/dL High 70-99 [facility] Comment on above: Performed By: #### L 500.4050, L501.9520, L501.2300, L100.0100 ####[facility] [address] [place], [address] Potassium [Moles/Vol] 4.4 mmol/L Normal 3.3-5.1 [facility] Comment on above: Performed By: #### L 500.4050, L501.9520, L501.2300, L100.0100 ####[facility] [address] [place], [address] Sodium [Moles/Vol] 140 mmol/L Normal 133-145 [facility] Comment on above: Performed By: #### L 500.4050, L501.9520, L501.2300, L100.0100 ####[facility] [address] [place], [address] T PROT 6.1 g/dL Normal 5.9-8.4 [facility] Comment on above: Performed By: #### L 500.4050, L501.9520, L501.2300, L100.0100 ####[facility] [address] [place], [address] Urea nitrogen [Mass/Vol] 16 mg/dL Normal 4-19 [facility] Comment on above: Performed By: #### L 500.4050, L501.9520, L501.2300, L100.0100 ####[facility] [address] [place], [address] Free T3on 04-08-2025 Free T3 [Mass/Vol] 2.7 pg/mL Normal 2.18-3.98 [facility] Comment on above: Performed By: #### L 506.0400, L501.42383 ####[facility] [address] [place], [address] Phosphoruson 04-08-2025 Phosphate [Mass/Vol] 3.5 mg/dL Normal 2.7-4.5 [facility] Comment on above: Performed By: #### L 500.4050, L501.9520, L501.2300, L100.0100 ####[facility] [address] [place], [address] T4 Free Directon 04-08-2025 T4 FREE DIRECT 1.00 ng/dL Normal 0.76-1.46 [facility] Comment on above: Performed By: #### L 506.0400, L501.72620 ####[facility] [address] [place], [address] Thyroid Stim Hormone (TSH)on 04-08-2025 TSH 5.670 uIU/mL High 0.300-4.20 0 [facility] Comment on above: Performed By: #### L 500.4050, L501.9520, L501.2300, L100.0100 ####[facility] [address] [place], [address] 12 Lead EKGon 04-07-2025 12 Lead EKG Normal [facility] Basic Metabolic Profile (BMP )on 04-07-2025 BUN/CRE 29.8 RATIO High 10-20 [facility] Comment on above: Performed By: #### L 500.2500, L100.0100 ####[facility] [address] [place], [address] Calcium [Mass/Vol] 8.9 mg/dL Normal 7.6-11.0 [facility] Comment on above: Performed By: #### L 500.2500, L100.0100 ####[facility] [address] [place], [address] Chloride [Moles/Vol] 102 mmol/L Normal 98-108 [facility] Comment on above: Performed By: #### L 500.2500, L100.0100 ####[facility] [address] [place], [address] CO2 [Moles/Vol] 25.4 mmol/L Normal 21.0-32.0 [facility] Comment on above: Performed By: #### L 500.2500, L100.0100 ####[facility] [address] [place], [address] Creatinine [Mass/Vol] 0.76 mg/dL Normal 0.70-1.20 [facility] Comment on above: Performed By: #### L 500.2500, L100.0100 ####[facility] [address] [place], [address] ECRCL 48.60 ml/min Low 50-250 [facility] Comment on above: Performed By: #### L 500.2500, L100.0100 ####[facility] [address] [place], [address] GAP 11 Normal 5-15 [facility] Comment on above: Performed By: #### L 500.2500, L100.0100 ####[facility] [address] [place], [address] GFR/1.73 sq M.predicted among non-blacks MDRD (S/P/Bld) [Vol rate/Area] 78 mL/min/{1.73_m2} Normal >60 [facility] Comment on above: Result Comment: mL/m in/1.73m2 CKD-EPI Creatinine Equation (2020) Performed By: #### L 500.2500, L100.0100 ####[facility] [address] [place], [address] Glucose [Mass/Vol] 278 mg/dL High 70-99 [facility] Comment on above: Performed By: #### L 500.2500, L100.0100 ####[facility] [address] [place], [address] Potassium [Moles/Vol] 4.4 mmol/L Normal 3.3-5.1 [facility] Comment on above: Performed By: #### L 500.2500, L100.0100 ####[facility] [address] [place], [address] Sodium [Moles/Vol] 139 mmol/L Normal 133-145 [facility] Comment on above: Performed By: #### L 500.2500, L100.0100 ####[facility] [address] [place], [address] Urea nitrogen [Mass/Vol] 23 mg/dL High 4-19 [facility] Comment on above: Performed By: #### L 500.2500, L100.0100 ####[facility] [address] [place], [address] Brain/Head without Contrasto n 04-07-2025 Brain/Head without Contrast Normal [facility] CBC W/Diff, Automatedon - Absolute Lymph 1.48 X10 3/uL Normal 0.83-4.51 [facility] Comment on above: Performed By: #### L 500.2500, L100.0100 ####[facility] [address] [place], [address] Absolute Neut 6.3 X10 3/uL Normal 2.0-7.7 [facility] Comment on above: Performed By: #### L 500.2500, L100.0100 ####[facility] [address] [place], [address] Basophils/100 WBC (Bld) 0.5 % Normal 0-1 [facility] Comment on above: Performed By: #### L 500.2500, L100.0100 ####[facility] [address] [place], [address] Eosinophils/100 WBC (Bld) 3.6 % Normal 0-5 [facility] Comment on above: Performed By: #### L 500.2500, L100.0100 ####[facility] [address] [place], [address] Erythrocyte distribution width (RBC) [Ratio] 13.0 % Normal 11.6-14.6 [facility] Comment on above: Performed By: #### L 500.2500, L100.0100 ####[facility] [address] [place], [address] Hematocrit (Bld) [Volume fraction] 33.8 % Low 37-47 [facility] Comment on above: Performed By: #### L 500.2500, L100.0100 ####[facility] [address] [place], [address] Hemoglobin (Bld) [Mass/Vol] 11.6 g/dL Low 12.0-15.0 [facility] Comment on above: Performed By: #### L 500.2500, L100.0100 ####[facility] [address] [place], [address] IG% 0.100 Normal 0.0-0.9 [facility] Comment on above: Result Comment: IG% - Immature Granulocytes (promyelocytes, myelocytes andmetamyelocytes) > 1% indicates that a LEFT SHIFT is Present. Performed By: #### L 500.2500, L100.0100 ####[facility] [address] [place], [address] Lymphocytes/100 WBC (Bld) 17.0 % Low 19-41 [facility] Comment on above: Performed By: #### L 500.2500, L100.0100 ####[facility] [address] [place], [address] MCH (RBC) [Entitic mass] 30.9 pg Normal 27.0-32.0 [facility] Comment on above: Performed By: #### L 500.2500, L100.0100 ####[facility] [address] [place], [address] MCHC (RBC) [Mass/Vol] 34.3 g/dL Normal 32-36 [facility] Comment on above: Performed By: #### L 500.2500, L100.0100 ####[facility] [address] [place], [address] MCV (RBC) [Entitic vol] 89.9 fL Normal 81-99 [facility] Comment on above: Performed By: #### L 500.2500, L100.0100 ####[facility] [address] [place], [address] Monocytes/100 WBC (Bld) 7.1 % Normal 0-10 [facility] Comment on above: Performed By: #### L 500.2500, L100.0100 ####[facility] [address] [place], [address] Neutrophils/100 WBC (Bld) 71.7 % High 47-70 [facility] Comment on above: Performed By: #### L 500.2500, L100.0100 ####[facility] [address] [place], [address] Nucleated RBC (Bld) [#/Vol] 0 10*3/uL Normal 0-5 [facility] Comment on above: Performed By: #### L 500.2500, L100.0100 ####[facility] [address] [place], [address] Platelet mean volume (Bld) [Entitic vol] 10.3 fL Normal 6.2-12.0 [facility] Comment on above: Performed By: #### L 500.2500, L100.0100 ####[facility] [address] [place], [address] Platelets (Bld) [#/Vol] 262 10*3/uL Normal 150-450 [facility] Comment on above: Performed By: #### L 500.2500, L100.0100 ####[facility] [address] [place], [address] RBC (Bld) [#/Vol] 3.76 10*6/uL Low 4.2-5.4 [facility] Comment on above: Performed By: #### L 500.2500, L100.0100 ####[facility] [address] [place], [address] RDW SD 42.3 fl Normal 35.1-43.9 [facility] Comment on above: Performed By: #### L 500.2500, L100.0100 ####[facility] [address] [place], [address] WBC (Bld) [#/Vol] 8.7 10*3/uL Normal 4.4-11.0 [facility] Comment on above: Performed By: #### L 500.2500, L100.0100 ####[facility] [address] [place], [address] Chest 1 View (Portable)on Chest 1 View (Portable) Normal [facility] Emergency Department Summary on 04-07-2025 Emergency Department Summary Normal [facility] H AND P Exam - Hospitaliston 04-07-2025 H&P Exam - Hospitalist Normal [facility] Magnesiumon 04-07-2025 Magnesium [Mass/Vol] 1.8 mg/dL Normal 1.5-2.2 [facility] Comment on above: Performed By: #### L 501.5200 ####[facility] [address] [place], [address] Spine Cervical without Contr ason 04-07-2025 Spine Cervical without Contras Normal [facility] Urinalysis, Completeon 04-07 BACTERIA 1+ /hpf Normal None Seen [facility] Comment on above: Order Comment: CLEAN CATCH Performed By: #### L 400.0001 ####[facility] [address] [place], [address] EPI,SQUAMOUS 25-50 SEEN Normal 5-10 [facility] Comment on above: Order Comment: CLEAN CATCH Performed By: #### L 400.0001 ####[facility] [address] [place], [address] YEAST 2+ /hpf Normal None Seen [facility] Comment on above: Order Comment: CLEAN CATCH Performed By: #### L 400.0001 ####[facility] [address] [place], [address] RBC 0-5 SEEN Normal 0-5 [facility] Comment on above: Order Comment: CLEAN CATCH Performed By: #### L 400.0001 ####[facility] [address] [place], [address] WBC 25-50 SEEN Normal 0-5 [facility] Comment on above: Order Comment: CLEAN CATCH Performed By: #### L 400.0001 ####[facility] [address] [place], [address] Mucus Ql (Urine sed) 0 SEEN Normal [facility] Comment on above: Order Comment: CLEAN CATCH Performed By: #### L 400.0001 ####[facility] [address] [place], [address] MR/PAT.ANEon 04-03-2025 MR/PAT.ANE Normal [facility] 12 Lead EKGon 04-02-2025 12 Lead EKG Normal [facility] MR/PAT.ANEon 04-02-2025 MR/PAT.ANE Normal [facility] Basic Metabolic Profile (BMP )on 04-01-2025 BUN/CRE 27.9 RATIO High - [facility] Comment on above: Performed By: #### L 100.0500, L500.2500 ####[facility] [address] [place], [address] Calcium [Mass/Vol] 9.3 mg/dL Normal 7.6-11.0 [facility] Comment on above: Performed By: #### L 100.0500, L500.2500 ####[facility] [address] [place], [address] Chloride [Moles/Vol] 104 mmol/L Normal 98-108 [facility] Comment on above: Performed By: #### L 100.0500, L500.2500 ####[facility] [address] [place], [address] CO2 [Moles/Vol] 26.5 mmol/L Normal 21.0-32.0 [facility] Comment on above: Performed By: #### L 100.0500, L500.2500 ####[facility] [address] [place], [address] Creatinine [Mass/Vol] 0.61 mg/dL Low 0.70-1.20 [facility] Comment on above: Performed By: #### L 100.0500, L500.2500 ####[facility] [address] [place], [address] GAP 12 Normal 5-15 [facility] Comment on above: Performed By: #### L 100.0500, L500.2500 ####[facility] [address] [place], [address] GFR/1.73 sq M.predicted among non-blacks MDRD (S/P/Bld) [Vol rate/Area] 89 mL/min/{1.73_m2} Normal >60 [facility] Comment on above: Result Comment: mL/m in/1.73m2 CKD-EPI Creatinine Equation (2020) Performed By: #### L 100.0500, L500.2500 ####[facility] [address] [place], [address] Glucose [Mass/Vol] 110 mg/dL High 70-99 [facility] Comment on above: Performed By: #### L 100.0500, L500.2500 ####[facility] [address] [place], [address] Potassium [Moles/Vol] 4.0 mmol/L Normal 3.3-5.1 [facility] Comment on above: Performed By: #### L 100.0500, L500.2500 ####[facility] [address] [place], [address] Sodium [Moles/Vol] 142 mmol/L Normal 133-145 [facility] Comment on above: Performed By: #### L 100.0500, L500.2500 ####[facility] [address] [place], [address] Urea nitrogen [Mass/Vol] 17 mg/dL Normal 4-19 [facility] Comment on above: Performed By: #### L 100.0500, L500.2500 ####[facility] [address] [place], [address] CBC-Complete Blood Cnt No Di ffon 04-01-2025 Erythrocyte distribution width (RBC) [Ratio] 12.9 % Normal 11.6-14.6 [facility] Comment on above: Performed By: #### L 100.0500, L500.2500 ####[facility] [address] [place], [address] Hematocrit (Bld) [Volume fraction] 36.5 % Low 37-47 [facility] Comment on above: Performed By: #### L 100.0500, L500.2500 ####[facility] [address] [place], [address] Hemoglobin (Bld) [Mass/Vol] 12.3 g/dL Normal 12.0-15.0 [facility] Comment on above: Performed By: #### L 100.0500, L500.2500 ####[facility] [address] [place], [address] MCH (RBC) [Entitic mass] 30.8 pg Normal 27.0-32.0 [facility] Comment on above: Performed By: #### L 100.0500, L500.2500 ####[facility] [address] [place], [address] MCHC (RBC) [Mass/Vol] 33.7 g/dL Normal 32-36 [facility] Comment on above: Performed By: #### L 100.0500, L500.2500 ####[facility] [address] [place], [address] MCV (RBC) [Entitic vol] 91.3 fL Normal 81-99 [facility] Comment on above: Performed By: #### L 100.0500, L500.2500 ####[facility] [address] [place], [address] Platelet mean volume (Bld) [Entitic vol] 10.3 fL Normal 6.2-12.0 [facility] Comment on above: Performed By: #### L 100.0500, L500.2500 ####[facility] [address] [place], [address] Platelets (Bld) [#/Vol] 287 10*3/uL Normal 150-450 [facility] Comment on above: Performed By: #### L 100.0500, L500.2500 ####[facility] [address] [place], [address] RBC (Bld) [#/Vol] 4.00 10*6/uL Low 4.2-5.4 [facility] Comment on above: Performed By: #### L 100.0500, L500.2500 ####[facility] [address] [place], [address] RDW SD 42.3 fl Normal 35.1-43.9 [facility] Comment on above: Performed By: #### L 100.0500, L500.2500 ####[facility] [address] [place], [address] WBC (Bld) [#/Vol] 7.9 10*3/uL Normal 4.4-11.0 [facility] Comment on above: Performed By: #### L 100.0500, L500.2500 ####[facility] [address] [place], [address] Hemoglobin A1con 04-01-2025 HbA1c (Bld) [Mass fraction] 8.5 % High <=5.6 [facility] Comment on above: Result Comment: Norm al < 5.7 % Prediabetic 5.7 - 6.4 % Diabetic >or= 6.5 % Please note range changes. Performed By: #### L 501.9985, L500.3400, L300.3900, L300.4310 ####[facility] [address] [place], [address] Liver Profileon 04-01-2025 Albumin [Mass/Vol] 4.1 g/dL Normal 3.4-4.8 [facility] Comment on above: Performed By: #### L 501.9985, L500.3400, L300.3900, L300.4310 ####[facility] [address] [place], [address] ALK PHOS 114 U/L High 35-104 [facility] Comment on above: Performed By: #### L 501.9985, L500.3400, L300.3900, L300.4310 ####[facility] [address] [place], [address] ALT [Catalytic activity/Vol] 15 U/L Normal <=34 [facility] Comment on above: Performed By: #### L 501.9985, L500.3400, L300.3900, L300.4310 ####[facility] [address] [place], [address] AST [Catalytic activity/Vol] 18 U/L Normal <=31 [facility] Comment on above: Performed By: #### L 501.9985, L500.3400, L300.3900, L300.4310 ####[facility] [address] [place], [address] Bilirubin [Mass/Vol] 0.41 mg/dL Normal 0.00-1.30 [facility] Comment on above: Performed By: #### L 501.9985, L500.3400, L300.3900, L300.4310 ####[facility] [address] [place], [address] Bilirubin.direct [Mass/Vol] 0.19 mg/dL Normal 0.00-0.30 [facility] Comment on above: Performed By: #### L 501.9985, L500.3400, L300.3900, L300.4310 ####[facility] [address] [place], [address] Globulin (S) [Mass/Vol] 2.9 g/dL Normal 2.2-4.2 [facility] Comment on above: Performed By: #### L 501.9985, L500.3400, L300.3900, L300.4310 ####[facility] [address] [place], [address] T PROT 7.0 g/dL Normal 5.9-8.4 [facility] Comment on above: Performed By: #### L 501.9985, L500.3400, L300.3900, L300.4310 ####[facility] [address] [place], [address] MR/BMS.BUSon 04-01-2025 MR/BMS.BUS Normal [facility] Partial Thromboplast Timeon 04-01-2025 aPTT Coag (Bld) [Time] 25.4 s Normal 24.1-36.2 [facility] Comment on above: Performed By: #### L 501.9985, L500.3400, L300.3900, L300.4310 ####[facility] [address] [place], [address] Prothrombin Time w/INRon INR Coag (PPP) [Relative time] 1.0 {INR} Normal [facility] Comment on above: Performed By: #### L 501.9985, L500.3400, L300.3900, L300.4310 ####[facility] [address] [place], [address] PT Coag (PPP) [Time] 13.3 s Normal 11.7-14.9 [facility] Comment on above: Performed By: #### L 501.9985, L500.3400, L300.3900, L300.4310 ####[facility] [address] [place], [address] Office Visit Reporton 2024 Office Visit Report Normal [facility] Neurology Visit Reporton Neurology Visit Report Normal [facility] Endocrinology Visit Reporton 02-19-2025 Endocrinology Visit Report Normal [facility] Office Visit Reporton 2024 Office Visit Report Normal [facility] Internal Medicine Office Vis iton 02-03-2025 Internal Medicine Office Visit Normal [facility] Office Visit Reporton 2024 Office Visit Report Normal [facility] MR/BMS.BPon 01-01-2025 MR/BMS.BP Normal [facility] CNPNon 12-18-2024 CNPN Telephone (INTMWS) ANA IVORY ([id number]) 1940 F Date Time Provider Department 12/18/24 ALICIA BLOUNT INTMWS During your visit today, we recorded the following information about you: Mansi Preston LPN 12/18/2024 11:26 AM Signed Shani from [facility] Home Health calling with plan of [...] 12/29/2020 14 - Other: See Comments NEOSPORIN (EPCRAHOZ-MYYEMTTIHE-WH* 2 - Rash Comments: blisters PIOGLITAZONE 12/29/2020 [...] Munguia refjere) Also has SSI. - Insulin [place], Disposable, (BD ULTRA-FINE FOZIA PEN NEEDLE) 32 [...] daily. For 30 days - multivitamin-folic acid-biotin (NYYW-ILWD-IQKBW, KL-ID-SSPCMB,) 400-2,000 mcg tab Take by mouth. - [...] diabetic neuropathy, (more content not included)... [facility] Tele[facility] (INTMWS) ANA IVORY ([id number]) 1940 F Date Time Provider Department 12/15/24 ALICIA BLOUNT INTMWS During your visit today, we recorded the following information about you: Mansi Preston LPN 12/15/2024 11:27 AM Signed Shani from [facility] Home Health calling with OT plan of care, one visit this week. She will call back with new plan next week. No need for return call. Isabella Emerson APRN.INTERMEDIATE DESIGNER 12/15/2024 4:37 PM Signed Noted and agree. [...] 12/29/2020 14 - Other: See Comments NEOSPORIN (CZZLAVXI-VJYEBRKUNB-ZC* 2 - Rash Comments: blisters PIOGLITAZONE 12/29/2020 [...] Munguia refjere) Also has SSI. - Insulin [place], Disposable, (BD ULTRA-FINE FOZIA PEN NEEDLE) 32 [...] daily. For 30 days - multivitamin-folic acid-biotin (TDGG-ADQH-PABTS, TF-GO-RJKATN,) 400-2,000 mcg tab Take by mouth. 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 [facility] Reporton 2024 Office Visit Report Normal [facility] Ribs Uni Min 3V w/PA Cheston 12-15-2024 Ribs Uni Min 3V w/PA Chest Normal [facility] Scapulaon 12-15-2024 Scapula Normal [facility] Internal Medicine Office Vis iton 12-12-2024 [facility] Telephone (INTMWS) ANA IVORY ([id number]) 1940 F Date Time Provider Department 12/10/24 [...] call back unless pcp disagrees. Isabella Emerson APRN.INTERMEDIATE DESIGNER 12/10/2024 3:36 PM Signed Noted, agree. Allergies [...] 12/29/2020 14 - Other: See Comments NEOSPORIN (PHEGKSVF-QVNUGETXES-IT* 2 - Rash Comments: blisters PIOGLITAZONE 12/29/2020 16 - Unknown PROTONIX (PANTOPRAZOLE) 01/13/2010 6 - Diarrhea RELAFEN (NABUMETONE) 03/22/2006 8 - GI Upset 11 - Vomiting SHRIMP 12/21/2021 8 - GI Upset ACTOS (PIOGLITAZONE HCL) 12/03/2016 7 - Swelling Date Reviewed: 07/15/2024 Reviewed by: Edwige Reyes LPN - Fully Assessed Reason for Visit: Delay of care- OT [facility] HH [Other] Prescriptions as of 12/11/2024 - SEMGLEE,INSULIN [...] Munguia refjere) Also has SSI. - Insulin [place], Disposable, (BD ULTRA-FINE FOZIA PEN NEEDLE) 32 [...] daily. For 30 days - multivitamin-folic acid-biotin (UDFJ-QYDQ-FZUCV, IC-CP-DQPUOV,) 400-2,000 mcg tab Take by mouth. - [...] dose on menu) - Miscellaneous [facility] [employer] [facility] [employer] (E08.40, Z79.4) Diabetes mellitus (more content not included)... Normal [facility] Basic Metabolic Profile (BMP )on 12-08-2024 BUN/CRE 16.5 RATIO Normal 10-20 [facility] Comment on above: Performed By: #### L 500.2500, L100.0100 ####[facility] [address] [place], [address] Calcium [Mass/Vol] 10.1 mg/dL Normal 7.6-11.0 [facility] Comment on above: Performed By: #### L 500.2500, L100.0100 ####[facility] [address] [place], [address] Chloride [Moles/Vol] 106 mmol/L Normal 98-108 [facility] Comment on above: Performed By: #### L 500.2500, L100.0100 ####[facility] [address] [place], [address] CO2 [Moles/Vol] 21.2 mmol/L Normal 21.0-32.0 [facility] Comment on above: Performed By: #### L 500.2500, L100.0100 ####[facility] [address] [place], [address] Creatinine [Mass/Vol] 1.35 mg/dL High 0.70-1.20 [facility] Comment on above: Performed By: #### L 500.2500, L100.0100 ####[facility] [address] [place], [address] GAP 12 Normal 5-15 [facility] Comment on above: Performed By: #### L 500.2500, L100.0100 ####[facility] [address] [place], [address] GFR/1.73 sq M.predicted among non-blacks MDRD (S/P/Bld) [Vol rate/Area] 39 mL/min/{1.73_m2} Low >60 [facility] Comment on above: Result Comment: mL/m in/1.73m2 CKD-EPI Creatinine Equation (2020) Performed By: #### L 500.2500, L100.0100 ####[facility] [address] [place], [address] Glucose [Mass/Vol] 99 mg/dL Normal 70-99 [facility] Comment on above: Performed By: #### L 500.2500, L100.0100 ####[facility] [address] [place], [address] Potassium [Moles/Vol] 3.9 mmol/L Normal 3.3-5.1 [facility] Comment on above: Performed By: #### L 500.2500, L100.0100 ####[facility] [address] [place], [address] Sodium [Moles/Vol] 140 mmol/L Normal 133-145 [facility] Comment on above: Performed By: #### L 500.2500, L100.0100 ####[facility] [address] [place], [address] Urea nitrogen [Mass/Vol] 22 mg/dL High 4-19 [facility] Comment on above: Performed By: #### L 500.2500, L100.0100 ####[facility] [address] [place], [address] CBC W/Diff, Automatedon 04-2 -2024 Absolute Lymph 1.28 X10 3/uL Normal 0.83-4.51 [facility] Comment on above: Performed By: #### L 500.2500, L100.0100 ####[facility] [address] [place], [address] Absolute Neut 4.6 X10 3/uL Normal 2.0-7.7 [facility] Comment on above: Performed By: #### L 500.2500, L100.0100 ####[facility] [address] [place], [address] Basophils/100 WBC (Bld) 0.9 % Normal 0-1 [facility] Comment on above: Performed By: #### L 500.2500, L100.0100 ####[facility] [address] [place], [address] Eosinophils/100 WBC (Bld) 4.1 % Normal 0-5 [facility] Comment on above: Performed By: #### L 500.2500, L100.0100 ####[facility] [address] [place], [address] Erythrocyte distribution width (RBC) [Ratio] 12.8 % Normal 11.6-14.6 [facility] Comment on above: Performed By: #### L 500.2500, L100.0100 ####[facility] [address] [place], [address] Hematocrit (Bld) [Volume fraction] 37.9 % Normal 37-47 [facility] Comment on above: Performed By: #### L 500.2500, L100.0100 ####[facility] [address] [place], [address] Hemoglobin (Bld) [Mass/Vol] 12.5 g/dL Normal 12.0-15.0 [facility] Comment on above: Performed By: #### L 500.2500, L100.0100 ####[facility] [address] [place], [address] IG% 0.300 Normal 0.0-0.9 [facility] Comment on above: Result Comment: IG% - Immature Granulocytes (promyelocytes, myelocytes andmetamyelocytes) > 1% indicates that a LEFT SHIFT is Present. Performed By: #### L 500.2500, L100.0100 ####[facility] [address] [place], [address] Lymphocytes/100 WBC (Bld) 18.9 % Low 19-41 [facility] Comment on above: Performed By: #### L 500.2500, L100.0100 ####[facility] [address] [place], [address] MCH (RBC) [Entitic mass] 31.8 pg Normal 27.0-32.0 [facility] Comment on above: Performed By: #### L 500.2500, L100.0100 ####[facility] [address] [place], [address] MCHC (RBC) [Mass/Vol] 33.0 g/dL Normal 32-36 [facility] Comment on above: Performed By: #### L 500.2500, L100.0100 ####[facility] [address] [place], [address] MCV (RBC) [Entitic vol] 96.4 fL Normal 81-99 [facility] Comment on above: Performed By: #### L 500.2500, L100.0100 ####[facility] [address] [place], [address] Monocytes/100 WBC (Bld) 8.5 % Normal 0-10 [facility] Comment on above: Performed By: #### L 500.2500, L100.0100 ####[facility] [address] [place], [address] Neutrophils/100 WBC (Bld) 67.3 % Normal 47-70 [facility] Comment on above: Performed By: #### L 500.2500, L100.0100 ####[facility] [address] [place], [address] Nucleated RBC (Bld) [#/Vol] 0 10*3/uL Normal 0-5 [facility] Comment on above: Performed By: #### L 500.2500, L100.0100 ####[facility] [address] [place], [address] Platelet mean volume (Bld) [Entitic vol] 12.6 fL High 6.2-12.0 [facility] Comment on above: Performed By: #### L 500.2500, L100.0100 ####[facility] [address] [place], [address] Platelets (Bld) [#/Vol] 155 10*3/uL Normal 150-450 [facility] Comment on above: Performed By: #### L 500.2500, L100.0100 ####[facility] [address] [place], [address] RBC (Bld) [#/Vol] 3.93 10*6/uL Low 4.2-5.4 [facility] Comment on above: Performed By: #### L 500.2500, L100.0100 ####[facility] [address] [place], [address] RDW SD 46.1 fl High 35.1-43.9 [facility] Comment on above: Performed By: #### L 500.2500, L100.0100 ####[facility] [address] [place], [address] WBC (Bld) [#/Vol] 6.8 10*3/uL Normal 4.4-11.0 [facility] Comment on above: Performed By: #### L 500.2500, L100.0100 ####[facility] [address] [place], [address] CNPNon 11-19-2024 [facility] Telephone (INTMWS) ANA IVORY ([id number]) 1940 F Date Time Provider Department 11/19/24 ALICIA BLOUNT INTWS During your visit today, we recorded the following information about you: Coby Reynolds, RN 11/19/2024 10:59 AM Signed Shani STEWART calling from [facility] to report plan of care for [...] back needed unless questions MANNY Murray Terri, MASOUD.INSPECTOR OPEN DIE 11/20/2024 10:00 AM Signed Noted, [place] Allergies [...] 12/29/2020 14 - Other: See Comments NEOSPORIN (FIHXJRUR-ZYCYEZDDOC-VE* 2 - Rash Comments: blisters PIOGLITAZONE 12/29/2020 [...] Munguia refills) Also has SSI. - Insulin [place], Disposable, (BD ULTRA-FINE FOZIA PEN NEEDLE) 32 gauge x 5/32 Use one needle for each dose, 4 times daily. 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 - Pyridoxine HCl 250 mg tablet DAILY - DULoxetine (CYMBALTA) 60 mg capsule Take 1 capsule by mouth daily at bedtime. - flash glucose scanning reader ([employer] City[employer] DONTRELL 2 READER) - flash glucose sensor [...] daily. For 30 days - multivitamin-folic acid-biotin (WAZV-JDNK-MSWCT, CO-SY-YZIKAZ,) 400-2,000 mcg tab Take by mouth. - collagen, bovine, 100 % powd Apply to affected area. - Cranberry-Vitamin C-Vitamin E (CRANBERRY PLUS VITAMIN C) 140-100 mg cap Patient takes Cranberry with Vitamin C capsule that contains 15,000 mg Cranberry and 100mg V (more content not included)... Normal [facility] Neurology Visit Reporton Neurology Visit Report Normal [facility] C-Peptideon 11-05-2024 C PEPTIDE 1.0 ng/mL Low 1.1-4.4 [facility] Comment on above: Result Comment: C-Pe ptide reference interval is for fasting patients.Performed at: - [facility] [id number] Director: Marco Antonio Diaz PhD, Phone: [phone] Performed By: #### L 501.0100, L5004100, L3687.7550 ####[facility] [address] [place], [address] Glucoseon 11-03-2024 Glucose [Mass/Vol] 151 mg/dL High 70-99 [facility] Comment on above: Performed By: #### L 501.0100, L500.4100, L3100.7750 ####[facility] [address] [place], [address] Lipid Profileon 11-03-2024 CHOL:HDL 3.54 Normal [facility] Comment on above: Performed By: #### L 501.0100, L500.4100, L3100.7750 ####[facility] [address] [place], [address] Cholesterol [Mass/Vol] 157 mg/dL Normal <=200 [facility] Comment on above: Result Comment: Chol esterol level, Desirable <200 mg/dLBorderline high cholesterol 200-239 mg/dLHigh cholesterol >=240 mg/dLRecommendations of the NCEP Adult Treatment Panel for thefollowing risk-cutoff thresholds for the [place] [employer]. Performed By: #### L 501.0100, L500.4100, L3100.7750 ####[facility] [address] [place], [address] Cholesterol in HDL [Mass/Vol] 44 mg/dL Normal [facility] Comment on above: Result Comment: Jayda onal Cholesterol Education Program (NCEP) guidelines:<40 mg/dL: Low HDL-cholesterol (major risk factor for CHD)>= 60 mg/dL: High HDL-cholesterol (negative risk factor forCHD)HDL-cholesterol is affected by a number of factors, e.g.smoking, exercise, hormones, sex and age. Performed By: #### L 501.0100, L500.4100, L3100.7750 ####[facility] [address] [place], [address] Cholesterol in LDL [Mass/Vol] 74 mg/dL Normal [facility] Comment on above: Result Comment: Bord gmqdip=165-749 mg/dL Higher Nimg=372 mg/dL or greater Performed By: #### L 501.0100, L500.4100, L3100.7750 ####[facility] [address] [place], [address] Cholesterol in VLDL [Mass/Vol] 39 mg/dL Normal 5-40 [facility] Comment on above: Performed By: #### L 501.0100, L500.4100, L3100.7750 ####[facility] [address] [place], [address] Triglyceride [Mass/Vol] 196 mg/dL Normal [facility] Comment on above: Result Comment: The drugs N-Acetylcysteine and Metamizole may falselydepress this assay.Normal range: <150 mg/dLBorderline High: 150-199 mg/dLHigh: 200-499 mg/dLVery High: >500 mg/dL Performed By: #### L 501.0100, L500.4100, L3100.7750 ####[facility] [address] [place], [address] Thyroid Stim Hormone (TSH)on 11-03-2024 TSH 3.160 uIU/mL Normal 0.300-4.20 0 [facility] Comment on above: Performed By: #### L 501.9520 ####[facility] [address] [place], [address] Internal Medicine Office Vis iton 11-02-2024 Internal Medicine Office Visit Normal [facility] Basic Metabolic Profile (BMP )on 10-27-2024 BUN Normal 7-18 [facility] Comment on above: Result Comment: Canc elled via OM: Order cancelled - Patient discharged Performed By: #### L 500.2500, L100.0100 ####[facility] [address] [place], [address] BUN/CRE Normal 10-20 [facility] Comment on above: Result Comment: Canc elled via OM: Order cancelled - Patient discharged Performed By: #### L 500.2500, L100.0100 ####[facility] [address] [place], [address] Calcium Normal 8.5-10.1 [facility] Comment on above: Result Comment: Canc elled via OM: Order cancelled - Patient discharged Performed By: #### L 500.2500, L100.0100 ####[facility] [address] [place], [address] CL Normal 98-107 [facility] Comment on above: Result Comment: Canc elled via OM: Order cancelled - Patient discharged Performed By: #### L 500.2500, L100.0100 ####[facility] [address] [place], [address] CO2 Normal 21.0-32.0 [facility] Comment on above: Result Comment: Canc elled via OM: Order cancelled - Patient discharged Performed By: #### L 500.2500, L100.0100 ####[facility] [address] [place], [address] CREAT,SERUM Normal 0.55-1.02 [facility] Comment on above: Result Comment: Canc elled via OM: Order cancelled - Patient discharged Performed By: #### L 500.2500, L100.0100 ####[facility] [address] [place], [address] eGFR Normal >60 [facility] Comment on above: Result Comment: Canc elled via OM: Order cancelled - Patient discharged Performed By: #### L 500.2500, L100.0100 ####[facility] [address] [place], [address] EST GFR - AA Normal >60 [facility] Comment on above: Result Comment: Canc elled via OM: Order cancelled - Patient discharged Performed By: #### L 500.2500, L100.0100 ####[facility] [address] [place], [address] GAP Normal 5-15 [facility] Comment on above: Result Comment: Canc elled via OM: Order cancelled - Patient discharged Performed By: #### L 500.2500, L100.0100 ####[facility] [address] [place], [address] GLU Normal 74-106 [facility] Comment on above: Result Comment: Canc elled via OM: Order cancelled - Patient discharged Performed By: #### L 500.2500, L100.0100 ####[facility] [address] [place], [address] Potassium Normal 3.5-5.1 [facility] Comment on above: Result Comment: Canc elled via OM: Order cancelled - Patient discharged Performed By: #### L 500.2500, L100.0100 ####[facility] [address] [place], [address] Basic Metabolic Profile (BMP) Normal 136-145 [facility] Comment on above: Result Comment: Canc elled via OM: Order cancelled - Patient discharged Performed By: #### L 500.2500, L100.0100 ####[facility] [address] [place], [address] CBC W/Diff, Automatedon 03- Absolute Neut Normal 2.0-7.7 [facility] Comment on above: Result Comment: Canc elled via OM: Order cancelled - Patient discharged Performed By: #### L 500.2500, L100.0100 ####[facility] [address] [place], [address] HCT Normal 37-47 [facility] Comment on above: Result Comment: Canc elled via OM: Order cancelled - Patient discharged Performed By: #### L 500.2500, L100.0100 ####[facility] [address] [place], [address] HGB Normal 12.0-15.0 [facility] Comment on above: Result Comment: Canc elled via OM: Order cancelled - Patient discharged Performed By: #### L 500.2500, L100.0100 ####[facility] [address] [place], [address] MCH Normal 27.0-32.0 [facility] Comment on above: Result Comment: Canc elled via OM: Order cancelled - Patient discharged Performed By: #### L 500.2500, L100.0100 ####[facility] [address] [place], [address] MCHC Normal 32-36 [facility] Comment on above: Result Comment: Canc elled via OM: Order cancelled - Patient discharged Performed By: #### L 500.2500, L100.0100 ####[facility] [address] [place], [address] MCV Normal 81-99 [facility] Comment on above: Result Comment: Canc elled via OM: Order cancelled - Patient discharged Performed By: #### L 500.2500, L100.0100 ####[facility] [address] [place], [address] NEUT% Normal 47-70 [facility] Comment on above: Result Comment: Canc elled via OM: Order cancelled - Patient discharged Performed By: #### L 500.2500, L100.0100 ####[facility] [address] [place], [address] PLT Normal 150-450 [facility] Comment on above: Result Comment: Canc elled via OM: Order cancelled - Patient discharged Performed By: #### L 500.2500, L100.0100 ####[facility] [address] [place], [address] RBC Normal 4.2-5.4 [facility] Comment on above: Result Comment: Canc elled via OM: Order cancelled - Patient discharged Performed By: #### L 500.2500, L100.0100 ####[facility] [address] [place], [address] RDW CV Normal 11.6-14.6 [facility] Comment on above: Result Comment: Canc elled via OM: Order cancelled - Patient discharged Performed By: #### L 500.2500, L100.0100 ####[facility] [address] [place], [address] RDW SD Normal 35.1-43.9 [facility] Comment on above: Result Comment: Canc elled via OM: Order cancelled - Patient discharged Performed By: #### L 500.2500, L100.0100 ####[facility] [address] [place], [address] WBC Normal 4.4-11.0 [facility] Comment on above: Result Comment: Canc elled via OM: Order cancelled - Patient discharged Performed By: #### L 500.2500, L100.0100 ####[facility] [address] [place], [address] CNPNon 10-27-2024 CNPN Telephone (INTMWS) ANA IVORY ([id number]) 1940 F Date Time Provider Department 10/27/24 ALICIA BLOUNT During your visit today, we recorded the following information about you: Mansi rPeston LPN 10/27/2024 9:43 AM Signed Steph from 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 Daughter said she had not given her mother the macrobid rx for 4 days, she did not know she was to continue taking the medication. Nurse had called Dr nonprofit financial controller Sunday and was told patient to continue [...] AM Signed Detailed message left for nurse Steph of below instructions. Allergies As of Date: [...] 12/29/2020 14 - Other: See Comments NEOSPORIN (IXJWFOSS-PORRTBYTUR-GT* 2 - Rash Comments: blisters PIOGLITAZONE 12/29/2020 [...] Munguia refills) Also has SSI. - Insulin [place], Disposable, (BD ULTRA-FINE FOZIA PEN NEEDLE) 32 [...] by mouth (more content not included)... Normal [facility] Telephone (INTMWS) ANA IVORY ([id number]) 1940 F Date Time Provider Department 10/27/24 ALICIA BLOUNT INTMWS During your visit today, we recorded the following information about you: Eris Keene, RN 10/27/2024 1:28 PM Signed Shani- PAT- [facility]- phoned with OT update POC: [...] 12/29/2020 14 - Other: See Comments NEOSPORIN (YRZZEPLS-OXIJUAZPRW-GM* 2 - Rash Comments: blisters PIOGLITAZONE 12/29/2020 16 - Unknown PROTONIX (PANTOPRAZOLE) 01/13/2010 6 - Diarrhea RELAFEN (NABUMETONE) 03/22/2006 8 - GI Upset 11 - Vomiting SHRIMP 12/21/2021 8 - GI Upset ACTOS (PIOGLITAZONE HCL) 12/03/2016 7 - Swelling Date Reviewed: 07/15/2024 Reviewed by: Edwige Reyes LPN - Fully Assessed Reason for Visit: [facility] OT updated POC [Other] Prescriptions as [...] Munguia refills) Also has SSI. - Insulin [place], Disposable, (BD ULTRA-FINE FOZIA PEN NEEDLE) 32 [...] daily. For 30 days - multivitamin-folic acid-biotin (SSDS-XHAD-OXVEF, XS-XP-FABUME,) 400-2,000 mcg tab Take by mouth. 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 Normal [facility] 10-25-2024 NEMESION Telephone (FMIUNI) ANA IVORY ([id number]) 1940 F Date Time Provider Department 10/25/24 LIGIA SCHILLING FMIUNI During your visit today, we recorded the following information about you: Ligia Schilling DO 10/25/2024 3:06 PM Signed Received call from [facility] nurse regarding patient. Pt was [...] home health visit. Dr. Ligia Schilling DO Allergies As of Date: 10/25/2024 Noted [...] 12/29/2020 14 - Other: See Comments NEOSPORIN (DAEJFULX-JJRMKEXHGI-PV* 2 - Rash Comments: blisters PIOGLITAZONE 12/29/2020 [...] Munguia refills) Also has SSI. - Insulin [place], Disposable, (BD ULTRA-FINE FOZIA PEN NEEDLE) 32 [...] daily. For 30 days - multivitamin-folic acid-biotin (XYEH-MWYI-UZQGH, EG-UM-TXNQJJ,) 400-2,000 mcg tab Take by mouth. - [...] find 1500mcg (more content not included)... Normal [facility] 10-24-2024 CNPN Telephone (INTMWS) ANA IVORY ([id number]) 1940 F Date Time Provider Department 10/24/24 ALICIA BLOUNT INTMWS During your visit today, we recorded the following information about you: Anne Rivera, RN 10/24/2024 11:18 AM Signed Karina nurse with [facility] HH calls to let provider know [...] of Macrobid? Karina requests call back at [phone]. Please review and advise, MANNY Griggs Liza [...] Dr. Forbes only prescribed 14 pills Anne Rivera, MANNY 10/27/2024 2:39 PM Signed The 98 pills should have said 8. I must have hit the 9 by accident as noted in the actual question: Karina asking if provider wants patient to take the baby aspirin and continue the 8 remaining doses of Macrobid? Message left for Karina with [facility] to notify that patient should be [...] 12/29/2020 14 - Other: See Comments NEOSPORIN (XMJEYSKT-HDBZVBFGOQ-LZ* 2 - Rash Comments: blisters PIOGLITAZONE 12/29/2020 [...] Munguia refjere) Also has SSI. - Insulin [place], Disposable, (BD ULTRA-FINE FOZIA PEN NEEDLE) 32 gauge x 5/32 Use one needle for each dose, 4 times daily. 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 - Pyridoxine HC (more content not included)... Normal [facility] 10-23-2024 [facility] (INTMWS) ANA IVORY ([id number]) 1940 F Date Time Provider Department 10/23/24 ALICIA BLOUNT INTMWS During your visit today, we recorded the following information about you: Mansi Preston LPN 10/23/2024 4:22 PM Signed Rhina from [facility] Health calling she has completed patient ST eval and plan to work on swallowing therapy, 2 visits weekly for 2 weeks. No need to return call. Isabella Emerson APRN.[facility] 10/24/2024 7:23 AM Signed Noted. Allergies As [...] 12/29/2020 14 - Other: See Comments NEOSPORIN (BKPFERPH-YEVJMCFVNO-JV* 2 - Rash Comments: blisters PIOGLITAZONE 12/29/2020 [...] Munguia refills) Also has SSI. - Insulin [place], Disposable, (BD ULTRA-FINE FOZIA PEN NEEDLE) 32 [...] daily. For 30 days - multivitamin-folic acid-biotin (QWBN-NRJR-RXTVT, AB-OJ-KYYQBM,) 400-2,000 mcg tab Take by mouth. 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 Normal [facility] Basic Metabolic Profile (BMP )on 10-20-2024 BUN Normal 7-18 [facility] Comment on above: Result Comment: Canc elled via OM: Order cancelled - Patient discharged Performed By: #### L 100.0100, L500.2500 ####[facility] [address] [place], [address] BUN/CRE Normal 10-20 [facility] Comment on above: Result Comment: Canc elled via OM: Order cancelled - Patient discharged Performed By: #### L 100.0100, L500.2500 ####[facility] [address] [place], [address] Calcium Normal 8.5-10.1 [facility] Comment on above: Result Comment: Canc elled via OM: Order cancelled - Patient discharged Performed By: #### L 100.0100, L500.2500 ####[facility] [address] [place], [address] CL Normal 98-107 [facility] Comment on above: Result Comment: Canc elled via OM: Order cancelled - Patient discharged Performed By: #### L 100.0100, L500.2500 ####[facility] [address] [place], [address] CO2 Normal 21.0-32.0 [facility] Comment on above: Result Comment: Canc elled via OM: Order cancelled - Patient discharged Performed By: #### L 100.0100, L500.2500 ####[facility] [address] [place], [address] CREAT,SERUM Normal 0.55-1.02 [facility] Comment on above: Result Comment: Canc elled via OM: Order cancelled - Patient discharged Performed By: #### L 100.0100, L500.2500 ####[facility] [address] [place], [address] eGFR Normal >60 [facility] Comment on above: Result Comment: Canc elled via OM: Order cancelled - Patient discharged Performed By: #### L 100.0100, L500.2500 ####[facility] [address] [place], [address] EST GFR - AA Normal >60 [facility] Comment on above: Result Comment: Canc elled via OM: Order cancelled - Patient discharged Performed By: #### L 100.0100, L500.2500 ####[facility] [address] [place], [address] GAP Normal 5-15 [facility] Comment on above: Result Comment: Canc elled via OM: Order cancelled - Patient discharged Performed By: #### L 100.0100, L500.2500 ####[facility] [address] [place], [address] GLU Normal 74-106 [facility] Comment on above: Result Comment: Canc elled via OM: Order cancelled - Patient discharged Performed By: #### L 100.0100, L500.2500 ####[facility] [address] [place], [address] Potassium Normal 3.5-5.1 [facility] Comment on above: Result Comment: Canc elled via OM: Order cancelled - Patient discharged Performed By: #### L 100.0100, L500.2500 ####[facility] [address] [place], [address] Basic Metabolic Profile (BMP) Normal 136-145 [facility] Comment on above: Result Comment: Canc elled via OM: Order cancelled - Patient discharged Performed By: #### L 100.0100, L500.2500 ####[facility] [address] [place], [address] CBC W/Diff, Automatedon 03- 0 Absolute Neut Normal 2.0-7.7 [facility] Comment on above: Result Comment: Canc elled via OM: Order cancelled - Patient discharged Performed By: #### L 100.0100, L500.2500 ####[facility] [address] [place], [address] HCT Normal 37-47 [facility] Comment on above: Result Comment: Canc elled via OM: Order cancelled - Patient discharged Performed By: #### L 100.0100, L500.2500 ####[facility] [address] [place], [address] HGB Normal 12.0-15.0 [facility] Comment on above: Result Comment: Canc elled via OM: Order cancelled - Patient discharged Performed By: #### L 100.0100, L500.2500 ####[facility] [address] [place], [address] MCH Normal 27.0-32.0 [facility] Comment on above: Result Comment: Canc elled via OM: Order cancelled - Patient discharged Performed By: #### L 100.0100, L500.2500 ####[facility] [address] [place], [address] MCHC Normal 32-36 [facility] Comment on above: Result Comment: Canc elled via OM: Order cancelled - Patient discharged Performed By: #### L 100.0100, L500.2500 ####[facility] [address] [place], [address] MCV Normal 81-99 [facility] Comment on above: Result Comment: Canc elled via OM: Order cancelled - Patient discharged Performed By: #### L 100.0100, L500.2500 ####[facility] [address] [place], [address] NEUT% Normal 47-70 [facility] Comment on above: Result Comment: Canc elled via OM: Order cancelled - Patient discharged Performed By: #### L 100.0100, L500.2500 ####[facility] [address] [place], [address] PLT Normal 150-450 [facility] Comment on above: Result Comment: Canc elled via OM: Order cancelled - Patient discharged Performed By: #### L 100.0100, L500.2500 ####[facility] [address] [place], [address] RBC Normal 4.2-5.4 [facility] Comment on above: Result Comment: Canc elled via OM: Order cancelled - Patient discharged Performed By: #### L 100.0100, L500.2500 ####[facility] [address] [place], [address] RDW CV Normal 11.6-14.6 [facility] Comment on above: Result Comment: Canc elled via OM: Order cancelled - Patient discharged Performed By: #### L 100.0100, L500.2500 ####[facility] [address] [place], [address] RDW SD Normal 35.1-43.9 [facility] Comment on above: Result Comment: Canc elled via OM: Order cancelled - Patient discharged Performed By: #### L 100.0100, L500.2500 ####[facility] [address] [place], [address] WBC Normal 4.4-11.0 [facility] Comment on above: Result Comment: Canc elled via OM: Order cancelled - Patient discharged Performed By: #### L 100.0100, L500.2500 ####[facility] [address] [place], [address] CNPNon 10-20-2024 [facility] Tele[facility] (INTMWS) ANA IVORY ([id number]) 1940 F Date Time Provider Department 10/20/24 ALICIA BLOUNT INTMWS During your visit today, we recorded the following information about you: Judith Renteria RN 10/20/2024 4:02 PM Signed Hardik [facility] POC on Pt and reports they will [...] 12/29/2020 14 - Other: See Comments NEOSPORIN (JIJXNAXG-PHOZLZCOLA-BA* 2 - Rash Comments: blisters PIOGLITAZONE 12/29/2020 16 - Unknown PROTONIX (PANTOPRAZOLE) 01/13/2010 6 - Diarrhea RELAFEN (NABUMETONE) 03/22/2006 8 - GI Upset 11 - Vomiting SHRIMP 12/21/2021 8 - GI Upset ACTOS (PIOGLITAZONE HCL) 12/03/2016 7 - Swelling Date Reviewed: 07/15/2024 Reviewed by: Edwige Reyes LPN - Fully Assessed Reason for Visit: Home Health Point of Care Results [5652] Order(s):insulin 75/25 lispro protamine-lispro units/mL (HUMALOG MIX 75-25,U-100,INSULN) 100 units/mL bighnxynuy91 units TID and a sliding scale s-- [...] Units daily (more content not included)... Normal [facility] Endocrinology Visit Reporton 10-20-2024 Endocrinology Visit Report Normal [facility] Urine Cultureon 10-19-2024 [facility] Yeast, not Shanna a lbicans [place] Count 50,000-80,000 Normal [facility] Comment on above: Performed By: #### L 400.0001, M100.2200 ####[facility] [address] [place], [place], [address] Bedside Glucoseon 10-17-2024 FINGERSTICK GLU 380 mg/dL High 74-106 [facility] Comment on above: Result Comment: OLGA GOMEZ OF PATIENT CARE PER NURSING PROTOCOL Performed By: #### L 501.080 ####[facility] [address] [place], [place], [address] FINGERSTICK GLU 178 mg/dL High 74-106 [facility] Comment on above: Result Comment: OLGA ALAMOJOSEPH OF PATIENT CARE PER NURSING PROTOCOL Performed By: #### L 501.080 ####[facility] [address] [place], [place], [address] CNPNon 10-17-2024 [facility] Tele[facility] (INTMWS) ANA IVORY ([id number]) 1940 F Date Time Provider Department 10/17/24 ALICIA BLOUNT INTMWS During your visit today, we recorded the following information about you: Judith Renteria RN 10/17/2024 2:59 PM Signed [facility] called in and reports Pt was D/Chuck from [facility] today for a stroke on 08/30. Pt was discharged with PT/OT/SN/SW/ST. She was asking if provider would be willing to follow. Please call and advise. Isabella Emerson APRN.NEMESIO 10/17/2024 3:50 PM Signed Please call and let them know that yes, we will follow. Thanks. Isabella Emerson APRN.Judith Haddad RN 10/17/2024 4:01 PM Signed Called and left a detailed voicemail notifying [facility] of providers message. Clinic phone number [...] 12/29/2020 14 - Other: See Comments NEOSPORIN (AVNHMNGL-TZQAJWPTXR-UF* 2 - Rash Comments: blisters PIOGLITAZONE 12/29/2020 [...] Genny Munguia refjere) Also has SSI. - insulin glargine (LANTUS SOLOSTAR U-100 INSULIN) 100 unit/mL (3 mL) Inject 20 Units subcutaneously daily at bedtime. (Dr. Genny Munguia refills) - Insulin [place], Disposable, (BD ULTRA-FINE FOZIA PEN NEEDLE) 32 [...] daily. For 30 days - multivitamin-folic acid-biotin (CHOC-HAPU-DZZRZ, VF-PR-YMZMKL,) 400-2,000 mcg tab Take by mouth. - collagen, bovine, 100 % powd Apply to affected area. - Cranberry-Vitamin C-Vitamin E (CRANBERRY PLUS VITAMIN C) 140-100 mg cap Patient takes Cranberry with Vitamin C capsule that contains 15,000 mg Cranberry and 100mg Vitamin C - Biotin 2,500 mcg cap Nurse reports patient taking 150 (more content not included)... Normal [facility] Urinalysis, Completeon 10-17 AMORPHOUS 1+ URATE Normal [facility] Comment on above: Order Comment: KEYANA TER SPECIMEN Performed By: #### L 400.0001, M1.2199 ####[facility] [address] [place], [address] BACTERIA 2+ /hpf Normal None Seen [facility] Comment on above: Order Comment: KEYANA TER SPECIMEN Performed By: #### L 400.0001, .2199 ####[facility] [address] [place], [address] EPI,SQUAMOUS 0-5 SEEN Normal 5-10 [facility] Comment on above: Order Comment: KEYANA TER SPECIMEN Performed By: #### L 400.0001, .2199 ####[facility] [address] [place], [address] RBC 0-5 SEEN Normal 0-5 [facility] Comment on above: Order Comment: KEYANA TER SPECIMEN Performed By: #### L 400.0001, .2199 ####[facility] [address] [place], [address] WBC 50-100 SEEN Normal 0-5 [facility] Comment on above: Order Comment: KEYANA TER SPECIMEN Performed By: #### L 400.0001, ####[facility] [address] [place], [address] Bedside Glucoseon 10-16-2024 FINGERSTICK GLU 306 mg/dL High 74-106 [facility] Comment on above: Result Comment: OLGA GEMENT OF PATIENT CARE PER NURSING PROTOCOL Performed By: #### L 501.080 ####[facility] [address] [place], [address] FINGERSTICK GLU 243 mg/dL High 74-106 [facility] Comment on above: Result Comment: OLGA GEMENT OF PATIENT CARE PER NURSING PROTOCOL Performed By: #### L 501.080 ####[facility] [address] [place], [address] FINGERSTICK GLU 373 mg/dL High 74-106 [facility] Comment on above: Result Comment: OLGA GEMENT OF PATIENT CARE PER NURSING PROTOCOL Performed By: #### L 501.080 ####[facility] [address] [place], [address] FINGERSTICK GLU 102 mg/dL Normal 74-106 [facility] Comment on above: Result Comment: OLGA GEMENT OF PATIENT CARE PER NURSING PROTOCOL Performed By: #### L 501.080 ####[facility] [address] [place], [address] FINGERSTICK GLU 83 mg/dL Normal 74-106 [facility] Comment on above: Result Comment: OLGA GEMENT OF PATIENT CARE PER NURSING PROTOCOL Performed By: #### L 501.080 ####[facility] [address] [place], [address] FINGERSTICK GLU 155 mg/dL High 74-106 [facility] Comment on above: Result Comment: OLGA GEMENT OF PATIENT CARE PER NURSING PROTOCOL Performed By: #### L 501.080 ####[facility] [address] [place], [address] Urinalysis, Completeon 10-16 Mucus Ql (Urine sed) 0 SEEN Normal [facility] Comment on above: Order Comment: KEYANA TER SPECIMEN Performed By: #### L 400.0001, M100.2200 ####[facility] [address] [place], [address] Bedside Glucoseon 10-15-2024 FINGERSTICK GLU 259 mg/dL High 74-106 [facility] Comment on above: Result Comment: OLGA GEMENT OF PATIENT CARE PER NURSING PROTOCOL Performed By: #### L 501.080 ####[facility] [address] [place], [address] FINGERSTICK GLU 219 mg/dL High 74-106 [facility] Comment on above: Result Comment: OLGA GEMENT OF PATIENT CARE PER NURSING PROTOCOL Performed By: #### L 501.080 ####[facility] [address] [place], [address] FINGERSTICK GLU 241 mg/dL High 74-106 [facility] Comment on above: Result Comment: OLGA GEMENT OF PATIENT CARE PER NURSING PROTOCOL Performed By: #### L 501.080 ####[facility] [address] [place], [address] FINGERSTICK GLU 76 mg/dL Normal 74-106 [facility] Comment on above: Result Comment: OLGA GEMENT OF PATIENT CARE PER NURSING PROTOCOL Performed By: #### L 501.080 ####[facility] [address] [place], [address] Bedside Glucoseon 10-14-2024 FINGERSTICK GLU 168 mg/dL High -106 [facility] Comment on above: Result Comment: OLGA GEMENT OF PATIENT CARE PER NURSING PROTOCOL Performed By: #### L 501.080 ####[facility] [address] [place], [address] FINGERSTICK GLU 179 mg/dL High -[address] [place] [address] Comment on above: Result Comment: OLGA GEMENT OF PATIENT CARE PER NURSING PROTOCOL Performed By: #### L 501.080 ####[facility] [address] [place], [address] FINGERSTICK GLU 192 mg/dL High -106 [facility] Comment on above: Result Comment: OLGA GEMENT OF PATIENT CARE PER NURSING PROTOCOL Performed By: #### L 501.080 ####[facility] [address] [place], [address] FINGERSTICK GLU 96 mg/dL Normal -106 [facility] Comment on above: Result Comment: OLGA GEMENT OF PATIENT CARE PER NURSING PROTOCOL Performed By: #### L 501.080 ####[facility] [address] [place], [address] FINGERSTICK GLU 84 mg/dL Normal 74-106 [facility] Comment on above: Result Comment: OLGA GOEMZ OF PATIENT CARE PER NURSING PROTOCOL Performed By: #### L 501.080 ####[facility] [address] [place], [address] Basic Metabolic Profile (BMP )on 10-13-2024 Anion gap [Moles/Vol] 12 mmol/L Normal 5-15 [facility] Comment on above: Performed By: #### L 500.2500 ####[facility] [address] [place], [address] BUN/CRE 26.2 RATIO High 10-20 [facility] Comment on above: Performed By: #### L 500.2500 ####[facility] [address] [place], [address] Calcium [Mass/Vol] 9.2 mg/dL Normal 7.6-11.0 [facility] Comment on above: Performed By: #### L 500.2500 ####[facility] [address] [place], [address] Chloride [Moles/Vol] 105 mmol/L Normal 96-108 [facility] Comment on above: Performed By: #### L 500.2500 ####[facility] [address] [place], [address] CO2 [Moles/Vol] 23.6 mmol/L Normal 22.0-29.0 [facility] Comment on above: Performed By: #### L 500.2500 ####[facility] [address] [place], [address] Creatinine [Mass/Vol] 0.81 mg/dL Normal 0.70-1.20 [facility] Comment on above: Performed By: #### L 500.2500 ####[facility] [address] [place], [address] ECRCL 48.72 ml/min Low 50-250 [facility] Comment on above: Performed By: #### L 500.2500 ####[facility] [address] [place], [address] GFR/1.73 sq M.predicted among non-blacks MDRD (S/P/Bld) [Vol rate/Area] 73 mL/min/{1.73_m2} Normal >60 [facility] Comment on above: Result Comment: mL/m in/1.73m2 CKD-EPI Creatinine Equation (2020) Performed By: #### L 500.2500 ####[facility] [address] [place], [address] Glucose [Mass/Vol] 176 mg/dL High 70-99 [facility] Comment on above: Performed By: #### L 500.2500 ####[facility] [address] [place], [address] Potassium [Moles/Vol] 3.9 mmol/L Normal 3.3-5.1 [facility] Comment on above: Performed By: #### L 500.2500 ####[facility] [address] [place], [address] Sodium [Moles/Vol] 140 mmol/L Normal 133-145 [facility] Comment on above: Performed By: #### L 500.2500 ####[facility] [address] [place], [address] Urea nitrogen [Mass/Vol] 21 mg/dL High 4-19 [facility] Comment on above: Performed By: #### L 500.2500 ####[facility] [address] [place], [address] BUN Normal 7-18 [facility] Comment on above: Result Comment: WILL REORDER Performed By: #### L 500.2500, L100.0100 ####[facility] [address] [place], [address] BUN/CRE Normal 10-20 [facility] Comment on above: Result Comment: WILL REORDER Performed By: #### L 500.2500, L100.0100 ####[facility] [address] [place], [address] Calcium Normal 8.5-10.1 [facility] Comment on above: Result Comment: WILL REORDER Performed By: #### L 500.2500, L100.0100 ####[facility] [address] [place], [address] CL Normal 98-107 [facility] Comment on above: Result Comment: WILL REORDER Performed By: #### L 500.2500, L100.0100 ####[facility] [address] [place], [address] CO2 Normal 21.0-32.0 [facility] Comment on above: Result Comment: WILL REORDER Performed By: #### L 500.2500, L100.0100 ####[facility] [address] [place], [address] CREAT,SERUM Normal 0.55-1.02 [facility] Comment on above: Result Comment: WILL REORDER Performed By: #### L 500.2500, L100.0100 ####[facility] [address] [place], [address] eGFR Normal >60 [facility] Comment on above: Result Comment: WILL REORDER Performed By: #### L 500.2500, L100.0100 ####[facility] [address] [place], [address] EST GFR - AA Normal >60 [facility] Comment on above: Result Comment: WILL REORDER Performed By: #### L 500.2500, L100.0100 ####[facility] [address] [place], [address] GAP Normal 5-15 [facility] Comment on above: Result Comment: WILL REORDER Performed By: #### L 500.2500, L100.0100 ####[facility] [address] [place], [address] GLU Normal 74-106 [facility] Comment on above: Result Comment: WILL REORDER Performed By: #### L 500.2500, L100.0100 ####[facility] [address] [place], [address] Potassium Normal 3.5-5.1 [facility] Comment on above: Result Comment: WILL REORDER Performed By: #### L 500.2500, L100.0100 ####[facility] [address] [place], [address] Basic Metabolic Profile (BMP) Normal 136-145 [facility] Comment on above: Result Comment: WILL REORDER Performed By: #### L 500.2500, L100.0100 ####[facility] [address] [place], [address] Bedside Glucoseon 10-13-2024 FINGERSTICK GLU 188 mg/dL High 74-106 [facility] Comment on above: Result Comment: OLGA GEMENT OF PATIENT CARE PER NURSING PROTOCOL Performed By: #### L 501.080 ####[facility] [address] [place], [address] FINGERSTICK GLU 143 mg/dL High 74-106 [facility] Comment on above: Result Comment: OLGA GEMENT OF PATIENT CARE PER NURSING PROTOCOL Performed By: #### L 501.080 ####[facility] [address] [place], [address] FINGERSTICK GLU 268 mg/dL High 74-106 [facility] Comment on above: Result Comment: OLGA GEMENT OF PATIENT CARE PER NURSING PROTOCOL Performed By: #### L 501.080 ####[facility] [address] [place], [address] FINGERSTICK GLU 173 mg/dL High 74-106 [facility] Comment on above: Result Comment: OLGA GEMENT OF PATIENT CARE PER NURSING PROTOCOL Performed By: #### L 501.080 ####[facility] [address] [place], [address] CBC W/Diff, Automatedon 03-0 3-2024 Absolute Lymph 2.78 X10 3/uL Normal 0.83-4.51 [facility] Comment on above: Performed By: #### L 500.2500, L100.0100 ####[facility] [address] [place], [address] Absolute Neut 3.6 X10 3/uL Normal 2.0-7.7 [facility] Comment on above: Performed By: #### L 500.2500, L100.0100 ####[facility] [address] [place], [address] Basophils/100 WBC (Bld) 0.4 % Normal 0-1 [facility] Comment on above: Performed By: #### L 500.2500, L100.0100 ####[facility] [address] [place], [address] Eosinophils/100 WBC (Bld) 4.1 % Normal 0-5 [facility] Comment on above: Performed By: #### L 500.2500, L100.0100 ####[facility] [address] [place], [address] Erythrocyte distribution width (RBC) [Ratio] 13.2 % Normal 11.6-14.6 [facility] Comment on above: Performed By: #### L 500.2500, L100.0100 ####[facility] [address] [place], [address] Hematocrit (Bld) [Volume fraction] 34.1 % Low 37-47 [facility] Comment on above: Performed By: #### L 500.2500, L100.0100 ####[facility] [address] [place], [address] Hemoglobin (Bld) [Mass/Vol] 11.5 g/dL Low 12.0-15.0 [facility] Comment on above: Performed By: #### L 500.2500, L100.0100 ####[facility] [address] [place], [address] IG% 0.300 Normal 0.0-0.9 [facility] Comment on above: Result Comment: IG% - Immature Granulocytes (promyelocytes, myelocytes andmetamyelocytes) > 1% indicates that a LEFT SHIFT is Present. Performed By: #### L 500.2500, L100.0100 ####[facility] [address] [place], [address] Lymphocytes/100 WBC (Bld) 36.3 % Normal 19-41 [facility] Comment on above: Performed By: #### L 500.2500, L100.0100 ####[facility] [address] [place], [address] MCH (RBC) [Entitic mass] 31.3 pg Normal 27.0-32.0 [facility] Comment on above: Performed By: #### L 500.2500, L100.0100 ####[facility] [address] [place], [address] MCHC (RBC) [Mass/Vol] 33.7 g/dL Normal 32-36 [facility] Comment on above: Performed By: #### L 500.2500, L100.0100 ####[facility] [address] [place], [address] MCV (RBC) [Entitic vol] 92.7 fL Normal 81-99 [facility] Comment on above: Performed By: #### L 500.2500, L100.0100 ####[facility] [address] [place], [address] Monocytes/100 WBC (Bld) 11.9 % High 0-10 [facility] Comment on above: Performed By: #### L 500.2500, L100.0100 ####[facility] [address] [place], [address] Neutrophils/100 WBC (Bld) 47.0 % Normal 47-70 [facility] Comment on above: Performed By: #### L 500.2500, L100.0100 ####[facility] [address] [place], [address] Nucleated RBC (Bld) [#/Vol] 0 10*3/uL Normal 0-5 [facility] Comment on above: Performed By: #### L 500.2500, L100.0100 ####[facility] [address] [place], [address] Platelet mean volume (Bld) [Entitic vol] 10.4 fL Normal 6.2-12.0 [facility] Comment on above: Performed By: #### L 500.2500, L100.0100 ####[facility] [address] [place], [address] Platelets (Bld) [#/Vol] 210 10*3/uL Normal 150-450 [facility] Comment on above: Performed By: #### L 500.2500, L100.0100 ####[facility] [address] [place], [address] RBC (Bld) [#/Vol] 3.68 10*6/uL Low 4.2-5.4 [facility] Comment on above: Performed By: #### L 500.2500, L100.0100 ####[facility] [address] [place], [address] RDW SD 44.4 fl High 35.1-43.9 [facility] Comment on above: Performed By: #### L 500.2500, L100.0100 ####[facility] [address] [place], [address] WBC (Bld) [#/Vol] 7.7 10*3/uL Normal 4.4-11.0 [facility] Comment on above: Performed By: #### L 500.2500, L100.0100 ####[facility] [address] [place], [address] Bedside Glucoseon 10-12-2024 FINGERSTICK GLU 188 mg/dL High 74-106 [facility] Comment on above: Result Comment: OLGA GEMENT OF PATIENT CARE PER NURSING PROTOCOL Performed By: #### L 501.080 ####[facility] [address] [place], [address] FINGERSTICK GLU 208 mg/dL High 74-106 [facility] Comment on above: Result Comment: OLGA GEMENT OF PATIENT CARE PER NURSING PROTOCOL Performed By: #### L 501.080 ####[facility] [address] [place], [address] FINGERSTICK GLU 195 mg/dL High 74-106 [facility] Comment on above: Result Comment: OLGA GEMENT OF PATIENT CARE PER NURSING PROTOCOL Performed By: #### L 501.080 ####[facility] [address] [place], [address] FINGERSTICK GLU 97 mg/dL Normal 74-106 [facility] Comment on above: Result Comment: OLGA GEMENT OF PATIENT CARE PER NURSING PROTOCOL Performed By: #### L 501.080 ####[facility] [address] [place], [address] Bedside Glucoseon 03-01-2025 FINGERSTICK GLU 195 mg/dL High -[address] [place] [address] Comment on above: Result Comment: OLGA GEMENT OF PATIENT CARE PER NURSING PROTOCOL Performed By: #### L 501.080 ####[facility] [address] [place], [address] FINGERSTICK GLU 151 mg/dL High [address] [place] [address] Comment on above: Result Comment: OLGA GEMENT OF PATIENT CARE PER NURSING PROTOCOL Performed By: #### L 501.080 ####[facility] [address] [facility] [address] FINGERSTICK GLU 197 mg/dL High [address] [place] [address] Comment on above: Result Comment: OLGA GEMENT OF PATIENT CARE PER NURSING PROTOCOL Performed By: #### L 501.080 ####[facility] [address] [place], [address] FINGERSTICK GLU 196 mg/dL High [address] [place] [address] Comment on above: Result Comment: OLGA GEMENT OF PATIENT CARE PER NURSING PROTOCOL Performed By: #### L 501.080 ####[facility] [address] [place], [address] Bedside Glucoseon 10-10-2024 FINGERSTICK GLU 246 mg/dL High [address] [place] [address] Comment on above: Result Comment: OLGA GEMENT OF PATIENT CARE PER NURSING PROTOCOL Performed By: #### L 501.080 ####[facility] [address] [place], [address] FINGERSTICK GLU 283 mg/dL High [address] [place] [address] Comment on above: Result Comment: OLGA GEMENT OF PATIENT CARE PER NURSING PROTOCOL Performed By: #### L 501.080 ####[facility] [address] [place], [address] FINGERSTICK GLU 227 mg/dL High [address] [place] [address] Comment on above: Result Comment: OLGA GEMENT OF PATIENT CARE PER NURSING PROTOCOL Performed By: #### L 501.080 ####[facility] [address] [place], [address] FINGERSTICK GLU 112 mg/dL High [address] [place] [address] Comment on above: Result Comment: OLGA GEMENT OF PATIENT CARE PER NURSING PROTOCOL Performed By: #### L 501.080 ####[facility] [address] [place], [address] Bedside Glucoseon 10-09-2024 FINGERSTICK GLU 263 mg/dL High [address] [place] [address] Comment on above: Result Comment: OLGA GEMENT OF PATIENT CARE PER NURSING PROTOCOL Performed By: #### L 501.080 ####[facility] [address] [place], [address] FINGERSTICK GLU 221 mg/dL High [address] [place] [address] Comment on above: Result Comment: OLGA GEMENT OF PATIENT CARE PER NURSING PROTOCOL Performed By: #### L 501.080 ####[facility] [address] [place], [address] FINGERSTICK GLU 298 mg/dL High [address] [place] [address] Comment on above: Result Comment: OLGA GEMENT OF PATIENT CARE PER NURSING PROTOCOL Performed By: #### L 501.080 ####[facility] [address] [place], [address] FINGERSTICK GLU 181 mg/dL High [address] [place] [address] Comment on above: Result Comment: OLGA GEMENT OF PATIENT CARE PER NURSING PROTOCOL Performed By: #### L 501.080 ####[facility] [address] [place], [address] Bedside Glucoseon 10-08-2024 FINGERSTICK GLU 229 mg/dL High [address] [place] [address] Comment on above: Result Comment: OLGA GEMENT OF PATIENT CARE PER NURSING PROTOCOL Performed By: #### L 501.080 ####[facility] [address] [place], [address] FINGERSTICK GLU 207 mg/dL High 74-106 [facility] Comment on above: Result Comment: OLGA GEMENT OF PATIENT CARE PER NURSING PROTOCOL Performed By: #### L 501.080 ####[facility] [address] [place], [address] FINGERSTICK GLU 271 mg/dL High [facility]106 [facility] Comment on above: Result Comment: OLGA GEMENT OF PATIENT CARE PER NURSING PROTOCOL Performed By: #### L 501.080 ####[facility] [address] [place], [address] FINGERSTICK GLU 143 mg/dL High [address] [place] [address] Comment on above: Result Comment: OLGA GEMENT OF PATIENT CARE PER NURSING PROTOCOL Performed By: #### L 501.080 ####[facility] [address] [place], [address] Bedside Glucoseon 10-07-2024 FINGERSTICK GLU 137 mg/dL High [address] [place] [address] Comment on above: Result Comment: OLGA GEMENT OF PATIENT CARE PER NURSING PROTOCOL Performed By: #### L 501.080 ####[facility] [address] [place], [address] FINGERSTICK GLU 165 mg/dL High [address] [place] [address] Comment on above: Result Comment: OLGA GEMENT OF PATIENT CARE PER NURSING PROTOCOL Performed By: #### L 501.080 ####[facility] [address] [place], [address] FINGERSTICK GLU 324 mg/dL High [address] [place] [address] Comment on above: Result Comment: OLGA GEMENT OF PATIENT CARE PER NURSING PROTOCOL Performed By: #### L 501.080 ####[facility] [address] [place], [address] FINGERSTICK GLU 241 mg/dL High [facility]106 [facility] Comment on above: Result Comment: OLGA GEMENT OF PATIENT CARE PER NURSING PROTOCOL Performed By: #### L 501.080 ####[facility] [address] [place], [address] Basic Metabolic Profile (BMP )on 10-06-2024 BUN/CRE 30.6 RATIO High 10-20 [facility] Comment on above: Performed By: #### L 500.2500, L100.0100 ####[facility] [address] [place], [address] CA,Total 9.3 mg/dL Normal 8.5-10.1 [facility] Comment on above: Performed By: #### L 500.2500, L100.0100 ####[facility] [address] [place], [address] Chloride [Moles/Vol] 106 mmol/L Normal 98-107 [facility] Comment on above: Performed By: #### L 500.2500, L100.0100 ####[facility] [address] [place], [address] CO2 [Moles/Vol] 25.0 mmol/L Normal 21.0-32.0 [facility] Comment on above: Performed By: #### L 500.2500, L100.0100 ####[facility] [address] [place], [address] Creatinine [Mass/Vol] 0.75 mg/dL Normal 0.55-1.02 [facility] Comment on above: Result Comment: The validity of the calculated GFR GFRAA in patients over70 years has not been determined. Clinical correlation isessential. Performed By: #### L 500.2500, L100.0100 ####[facility] [address] [place], [address] ECRCL 49.46 ml/min Normal [facility] Comment on above: Performed By: #### L 500.2500, L100.0100 ####[facility] [address] [place], [address] EST GFR - AA 95 mL/min Normal >60 [facility] Comment on above: Result Comment: Afri can Pakistani GFR Calc Performed By: #### L 500.2500, L100.0100 ####[facility] [address] [place], [address] GAP 8 Normal 5-15 [facility] Comment on above: Performed By: #### L 500.2500, L100.0100 ####[facility] [address] [place], [address] GFR/1.73 sq M.predicted among non-blacks MDRD (S/P/Bld) [Vol rate/Area] 78 mL/min/{1.73_m2} Normal >60 [facility] Comment on above: Result Comment: Non- GFR Calc Performed By: #### L 500.2500, L100.0100 ####[facility] [address] [place], [address] Glucose [Mass/Vol] 179 mg/dL High 74-106 [facility] Comment on above: Result Comment: Fast ing Glucose result greater than or equal to 126 mg/dLsuggests DIABETES MELLITUS per A.D.A. criteria. Performed By: #### L 500.2500, L100.0100 ####[facility] [address] [place], [address] Potassium [Moles/Vol] 3.9 mmol/L Normal 3.5-5.1 [facility] Comment on above: Performed By: #### L 500.2500, L100.0100 ####[facility] [address] [place], [address] Sodium [Moles/Vol] 139 mmol/L Normal 136-145 [facility] Comment on above: Performed By: #### L 500.2500, L100.0100 ####[facility] [address] [place], [address] Urea nitrogen [Mass/Vol] 23 mg/dL High 7-18 [facility] Comment on above: Performed By: #### L 500.2500, L100.0100 ####[facility] [address] [place], [address] Bedside Glucoseon 10-06-2024 FINGERSTICK GLU 234 mg/dL High 74-106 [facility] Comment on above: Result Comment: OLGA GEMENT OF PATIENT CARE PER NURSING PROTOCOL Performed By: #### L 501.080 ####[facility] [address] [place], [address] FINGERSTICK GLU 225 mg/dL High 74-106 [facility] Comment on above: Result Comment: OLGA GEMENT OF PATIENT CARE PER NURSING PROTOCOL Performed By: #### L 501.080 ####[facility] [address] [place], [address] FINGERSTICK GLU 298 mg/dL High 74-106 [facility] Comment on above: Result Comment: OLGA GEMENT OF PATIENT CARE PER NURSING PROTOCOL Performed By: #### L 501.080 ####[facility] [address] [place], [address] FINGERSTICK GLU 183 mg/dL High 74-106 [facility] Comment on above: Result Comment: OLGA GEMENT OF PATIENT CARE PER NURSING PROTOCOL Performed By: #### L 501.080 ####[facility] [address] [place], [address] CBC W/Diff, Automatedon - Absolute Lymph 2.46 X10 3/uL Normal 0.83-4.51 [facility] Comment on above: Performed By: #### L 500.2500, L100.0100 ####[facility] [address] [place], [address] Absolute Neut 4.7 X10 3/uL Normal 2.0-7.7 [facility] Comment on above: Performed By: #### L 500.2500, L100.0100 ####[facility] [address] [place], [address] Basophils/100 WBC (Bld) 0.5 % Normal 0-1 [facility] Comment on above: Performed By: #### L 500.2500, L100.0100 ####[facility] [address] [place], [address] Eosinophils/100 WBC (Bld) 4.2 % Normal 0-5 [facility] Comment on above: Performed By: #### L 500.2500, L100.0100 ####[facility] [address] [place], [address] Erythrocyte distribution width (RBC) [Ratio] 12.9 % Normal 11.6-14.6 [facility] Comment on above: Performed By: #### L 500.2500, L100.0100 ####[facility] [address] [place], [address] Hematocrit (Bld) [Volume fraction] 36.2 % Low 37-47 [facility] Comment on above: Performed By: #### L 500.2500, L100.0100 ####[facility] [address] [place], [address] Hemoglobin (Bld) [Mass/Vol] 12.1 g/dL Normal 12.0-15.0 [facility] Comment on above: Performed By: #### L 500.2500, L100.0100 ####[facility] [address] [place], [address] IG% 0.200 Normal 0.0-0.9 [facility] Comment on above: Result Comment: IG% - Immature Granulocytes (promyelocytes, myelocytes andmetamyelocytes) > 1% indicates that a LEFT SHIFT is Present. Performed By: #### L 500.2500, L100.0100 ####[facility] [address] [place], [address] Lymphocytes/100 WBC (Bld) 28.9 % Normal 19-41 [facility] Comment on above: Performed By: #### L 500.2500, L100.0100 ####[facility] [address] [place], [address] MCH (RBC) [Entitic mass] 31.1 pg Normal 27.0-32.0 [facility] Comment on above: Performed By: #### L 500.2500, L100.0100 ####[facility] [address] [place], [address] MCHC (RBC) [Mass/Vol] 33.4 g/dL Normal 32-36 [facility] Comment on above: Performed By: #### L 500.2500, L100.0100 ####[facility] [address] [place], [address] MCV (RBC) [Entitic vol] 93.1 fL Normal 81-99 [facility] Comment on above: Performed By: #### L 500.2500, L100.0100 ####[facility] [address] [place], [address] Monocytes/100 WBC (Bld) 10.5 % High 0-10 [facility] Comment on above: Performed By: #### L 500.2500, L100.0100 ####[facility] [address] [place], [address] Neutrophils/100 WBC (Bld) 55.7 % Normal 47-70 [facility] Comment on above: Performed By: #### L 500.2500, L100.0100 ####[facility] [address] [place], [address] Nucleated RBC (Bld) [#/Vol] 0 10*3/uL Normal 0-5 [facility] Comment on above: Performed By: #### L 500.2500, L100.0100 ####[facility] [address] [place], [address] Platelet mean volume (Bld) [Entitic vol] 10.9 fL Normal 6.2-12.0 [facility] Comment on above: Performed By: #### L 500.2500, L100.0100 ####[facility] [address] [place], [address] Platelets (Bld) [#/Vol] 229 10*3/uL Normal 150-450 [facility] Comment on above: Performed By: #### L 500.2500, L100.0100 ####[facility] [address] [place], [address] RBC (Bld) [#/Vol] 3.89 10*6/uL Low 4.2-5.4 [facility] Comment on above: Performed By: #### L 500.2500, L100.0100 ####[facility] [address] [place], [address] RDW SD 43.7 fl Normal 35.1-43.9 [facility] Comment on above: Performed By: #### L 500.2500, L100.0100 ####[facility] [address] [place], [address] WBC (Bld) [#/Vol] 8.5 10*3/uL Normal 4.4-11.0 [facility] Comment on above: Performed By: #### L 500.2500, L100.0100 ####[facility] [address] [place], [address] Bedside Glucoseon 10-05-2024 FINGERSTICK GLU 233 mg/dL High 74-106 [facility] Comment on above: Result Comment: OLGA GMOEZ OF PATIENT CARE PER NURSING PROTOCOL Performed By: #### L 501.080 ####[facility] [address] [place], [address] FINGERSTICK GLU 249 mg/dL High [address] [place] [address] Comment on above: Result Comment: OLGA GEMENT OF PATIENT CARE PER NURSING PROTOCOL Performed By: #### L 501.080 ####[facility] [address] [place], [address] FINGERSTICK GLU 368 mg/dL High -106 [facility] Comment on above: Result Comment: OLGA GEMENT OF PATIENT CARE PER NURSING PROTOCOL Performed By: #### L 501.080 ####[facility] [address] [place], [address] FINGERSTICK GLU 233 mg/dL High [address] [place] [address] Comment on above: Result Comment: OLGA GEMENT OF PATIENT CARE PER NURSING PROTOCOL Performed By: #### L 501.080 ####[facility] [address] [place], [address] Bedside Glucoseon 10-04-2024 FINGERSTICK GLU 305 mg/dL High [address] [place] [address] Comment on above: Result Comment: OLGA GEMENT OF PATIENT CARE PER NURSING PROTOCOL Performed By: #### L 501.080 ####[facility] [address] [place], [address] FINGERSTICK GLU 331 mg/dL High [address] [place] [address] Comment on above: Result Comment: OLGA GEMENT OF PATIENT CARE PER NURSING PROTOCOL Performed By: #### L 501.080 ####[facility] [address] [place], [address] FINGERSTICK GLU 298 mg/dL High [address] [place] [address] Comment on above: Result Comment: OLGA GEMENT OF PATIENT CARE PER NURSING PROTOCOL Performed By: #### L 501.080 ####[facility] [address] [place], [address] FINGERSTICK GLU 215 mg/dL High 74-106 [facility] Comment on above: Result Comment: OLGA GEMENT OF PATIENT CARE PER NURSING PROTOCOL Performed By: #### L 501.080 ####[facility] [address] [place], [address] Bedside Glucoseon 10-03-2024 FINGERSTICK GLU 191 mg/dL High [address] [place] [address] Comment on above: Result Comment: OLGA GEMENT OF PATIENT CARE PER NURSING PROTOCOL Performed By: #### L 501.080 ####[facility] [address] [place], [address] FINGERSTICK GLU 188 mg/dL High [address] [place] [address] Comment on above: Result Comment: OLGA GEMENT OF PATIENT CARE PER NURSING PROTOCOL Performed By: #### L 501.080 ####[facility] [address] [place], [address] FINGERSTICK GLU 321 mg/dL High [address] [place] [address] Comment on above: Result Comment: OLGA GEMENT OF PATIENT CARE PER NURSING PROTOCOL Performed By: #### L 501.080 ####[facility] [address] [place], [address] FINGERSTICK GLU 178 mg/dL [address] Comment on above: Result Comment: OLGA GEMENT OF PATIENT CARE PER NURSING PROTOCOL Performed By: #### L 501.080 ####[facility] [address] [place], [address] Bedside Glucoseon 5 FINGERSTICK GLU 214 mg/dL [address] Comment on above: Result Comment: OLGA GEMENT OF PATIENT CARE PER NURSING PROTOCOL Performed By: #### L 501.080 ####[facility] [address] [place], [address] FINGERSTICK GLU 205 mg/dL High [address] [place] [address] Comment on above: Result Comment: OLGA GEMENT OF PATIENT CARE PER NURSING PROTOCOL Performed By: #### L 501.080 ####[facility] [address] [place], [address] FINGERSTICK GLU 269 mg/dL High 74-106 [facility] Comment on above: Result Comment: OLGA GEMENT OF PATIENT CARE PER NURSING PROTOCOL Performed By: #### L 501.080 ####[facility] [address] [place], [address] FINGERSTICK GLU 185 mg/dL High 74-106 [facility] Comment on above: Result Comment: OLGA GEMENT OF PATIENT CARE PER NURSING PROTOCOL Performed By: #### L 501.080 ####[facility] [address] [place], [address] Bedside Glucoseon 10-01-2024 FINGERSTICK GLU 213 mg/dL High -106 [facility] Comment on above: Result Comment: OLGA GEMENT OF PATIENT CARE PER NURSING PROTOCOL Performed By: #### L 501.080 ####[facility] [address] [place], [address] FINGERSTICK GLU 193 mg/dL High 74-106 [facility] Comment on above: Result Comment: OLGA GEMENT OF PATIENT CARE PER NURSING PROTOCOL Performed By: #### L 501.080 ####[facility] [address] [place], [address] FINGERSTICK GLU 253 mg/dL High 74-106 [facility] Comment on above: Result Comment: OLGA GEMENT OF PATIENT CARE PER NURSING PROTOCOL Performed By: #### L 501.080 ####[facility] [address] [place], [address] FINGERSTICK GLU 172 mg/dL High 74-106 [facility] Comment on above: Result Comment: OLGA GEMENT OF PATIENT CARE PER NURSING PROTOCOL Performed By: #### L 501.080 ####[facility] [address] [place], [address] COVID 19 AG RAPID (RN JOSE Peters)on 10-01-2024 SARS-CoV-2 (COVID-19) RNA JOANNA+probe Ql (Unsp spec) Normal [facility] Comment on above: Performed By: #### M 100.505 ####[facility] [address] [place], [address] SP/SP.FEESon 10-01-2024 SP/SP.FEES Normal [facility] Bedside Glucoseon 09-30-2024 FINGERSTICK GLU 187 mg/dL High 74-106 [facility] Comment on above: Result Comment: OLGA GEMENT OF PATIENT CARE PER NURSING PROTOCOL Performed By: #### L 501.080 ####[facility] [address] [place], [address] FINGERSTICK GLU 199 mg/dL High 74-106 [facility] Comment on above: Result Comment: OLGA GEMENT OF PATIENT CARE PER NURSING PROTOCOL Performed By: #### L 501.080 ####[facility] [address] [place], [address] FINGERSTICK GLU 233 mg/dL High 74-106 [facility] Comment on above: Result Comment: OLGA GEMENT OF PATIENT CARE PER NURSING PROTOCOL Performed By: #### L 501.080 ####[facility] [address] [place], [address] FINGERSTICK GLU 181 mg/dL High 74-106 [facility] Comment on above: Result Comment: OLGA GEMENT OF PATIENT CARE PER NURSING PROTOCOL Performed By: #### L 501.080 ####[facility] [address] [place], [address] Consultation - Surgicalon Consultation - Surgical Normal [facility] Basic Metabolic Profile (BMP )on 09-29-2024 BUN/CRE 21.9 RATIO High 10-20 [facility] Comment on above: Performed By: #### L 100.0100, L500.2500 ####[facility] [address] [place], [address] CA,Total 9.1 mg/dL Normal 8.5-10.1 [facility] Comment on above: Performed By: #### L 100.0100, L500.2500 ####[facility] [address] [place], [address] Chloride [Moles/Vol] 105 mmol/L Normal 98-107 [facility] Comment on above: Performed By: #### L 100.0100, L500.2500 ####[facility] [address] [place], [address] CO2 [Moles/Vol] 26.0 mmol/L Normal 21.0-32.0 [facility] Comment on above: Performed By: #### L 100.0100, L500.2500 ####[facility] [address] [place], [address] Creatinine [Mass/Vol] 0.82 mg/dL Normal 0.55-1.02 [facility] Comment on above: Result Comment: The validity of the calculated GFR GFRAA in patients over70 years has not been determined. Clinical correlation isessential. Performed By: #### L 100.0100, L500.2500 ####[facility] [address] [place], [address] ECRCL 48.54 ml/min Normal [facility] Comment on above: Performed By: #### L 100.0100, L500.2500 ####[facility] [address] [place], [address] EST GFR - AA 86 mL/min Normal >60 [facility] Comment on above: Result Comment: Afri can Pakistani GFR Calc Performed By: #### L 100.0100, L500.2500 ####[facility] [address] [place], [address] GAP 7 Normal 5-15 [facility] Comment on above: Performed By: #### L 100.0100, L500.2500 ####[facility] [address] [place], [address] GFR/1.73 sq M.predicted among non-blacks MDRD (S/P/Bld) [Vol rate/Area] 71 mL/min/{1.73_m2} Normal >60 [facility] Comment on above: Result Comment: Non- GFR Calc Performed By: #### L 100.0100, L500.2500 ####[facility] [address] [place], [address] Glucose [Mass/Vol] 200 mg/dL High 74-106 [facility] Comment on above: Result Comment: Gluc ose result greater than or equal to 200 mg/dLsuggests DIABETES MELLITUS per A.D.A. criteria. Performed By: #### L 100.0100, L500.2500 ####[facility] [address] [place], [address] Potassium [Moles/Vol] 3.8 mmol/L Normal 3.5-5.1 [facility] Comment on above: Performed By: #### L 100.0100, L500.2500 ####[facility] [address] [place], [address] Sodium [Moles/Vol] 138 mmol/L Normal 136-145 [facility] Comment on above: Performed By: #### L 100.0100, L500.2500 ####[facility] [address] [place], [address] Urea nitrogen [Mass/Vol] 18 mg/dL Normal 7-18 [facility] Comment on above: Performed By: #### L 100.0100, L500.2500 ####[facility] [address] [place], [address] Bedside Glucoseon 09-29-2024 FINGERSTICK GLU 171 mg/dL High [address] [place] [address] Comment on above: Result Comment: OLGA GEMENT OF PATIENT CARE PER NURSING PROTOCOL Performed By: #### L 501.080 ####[facility] [address] [place], [address] FINGERSTICK GLU 140 mg/dL High [facility]106 [facility] Comment on above: Result Comment: OLGA GEMENT OF PATIENT CARE PER NURSING PROTOCOL Performed By: #### L 501.080 ####[facility] [address] [place], [address] FINGERSTICK GLU 244 mg/dL High [address] [place] [address] Comment on above: Result Comment: OLGA GEMENT OF PATIENT CARE PER NURSING PROTOCOL Performed By: #### L 501.080 ####[facility] [address] [place], [address] FINGERSTICK GLU 191 mg/dL High [address] [place] [address] Comment on above: Result Comment: OLGA GEMENT OF PATIENT CARE PER NURSING PROTOCOL Performed By: #### L 501.080 ####[facility] [address] [place], [address] CBC W/Diff, Automatedon - Absolute Lymph 2.40 X10 3/uL Normal 0.83-4.51 [facility] Comment on above: Performed By: #### L 100.0100, L500.2500 ####[facility] [address] [place], [address] Absolute Neut 4.0 X10 3/uL Normal 2.0-7.7 [facility] Comment on above: Performed By: #### L 100.0100, L500.2500 ####[facility] [address] [place], [address] Basophils/100 WBC (Bld) 0.4 % Normal 0-1 [facility] Comment on above: Performed By: #### L 100.0100, L500.2500 ####[facility] [address] [place], [address] Eosinophils/100 WBC (Bld) 4.1 % Normal 0-5 [facility] Comment on above: Performed By: #### L 100.0100, L500.2500 ####[facility] [address] [place], [address] Erythrocyte distribution width (RBC) [Ratio] 12.8 % Normal 11.6-14.6 [facility] Comment on above: Performed By: #### L 100.0100, L500.2500 ####[facility] [address] [place], [address] Hematocrit (Bld) [Volume fraction] 37.7 % Normal 37-47 [facility] Comment on above: Performed By: #### L 100.0100, L500.2500 ####[facility] [address] [place], [address] Hemoglobin (Bld) [Mass/Vol] 12.4 g/dL Normal 12.0-15.0 [facility] Comment on above: Performed By: #### L 100.0100, L500.2500 ####[facility] [address] [place], [address] IG% 0.400 Normal 0.0-0.9 [facility] Comment on above: Result Comment: IG% - Immature Granulocytes (promyelocytes, myelocytes andmetamyelocytes) > 1% indicates that a LEFT SHIFT is Present. Performed By: #### L 100.0100, L500.2500 ####[facility] [address] [place], [address] Lymphocytes/100 WBC (Bld) 31.7 % Normal 19-41 [facility] Comment on above: Performed By: #### L 100.0100, L500.2500 ####[facility] [address] [place], [address] MCH (RBC) [Entitic mass] 30.5 pg Normal 27.0-32.0 [facility] Comment on above: Performed By: #### L 100.0100, L500.2500 ####[facility] [address] [place], [address] MCHC (RBC) [Mass/Vol] 32.9 g/dL Normal 32-36 [facility] Comment on above: Performed By: #### L 100.0100, L500.2500 ####[facility] [address] [place], [address] MCV (RBC) [Entitic vol] 92.9 fL Normal 81-99 [facility] Comment on above: Performed By: #### L 100.0100, L500.2500 ####[facility] [address] [place], [address] Monocytes/100 WBC (Bld) 10.1 % High 0-10 [facility] Comment on above: Performed By: #### L 100.0100, L500.2500 ####[facility] [address] [place], [address] Neutrophils/100 WBC (Bld) 53.3 % Normal 47-70 [facility] Comment on above: Performed By: #### L 100.0100, L500.2500 ####[facility] [address] [place], [address] Nucleated RBC (Bld) [#/Vol] 0 10*3/uL Normal 0-5 [facility] Comment on above: Performed By: #### L 100.0100, L500.2500 ####[facility] [address] [place], [address] Platelet mean volume (Bld) [Entitic vol] 10.7 fL Normal 6.2-12.0 [facility] Comment on above: Performed By: #### L 100.0100, L500.2500 ####[facility] [address] [place], [address] Platelets (Bld) [#/Vol] 229 10*3/uL Normal 150-450 [facility] Comment on above: Performed By: #### L 100.0100, L500.2500 ####[facility] [address] [place], [address] RBC (Bld) [#/Vol] 4.06 10*6/uL Low 4.2-5.4 [facility] Comment on above: Performed By: #### L 100.0100, L500.2500 ####[facility] [address] [place], [address] RDW SD 43.6 fl Normal 35.1-43.9 [facility] Comment on above: Performed By: #### L 100.0100, L500.2500 ####[facility] [address] [place], [address] WBC (Bld) [#/Vol] 7.6 10*3/uL Normal 4.4-11.0 [facility] Comment on above: Performed By: #### L 100.0100, L500.2500 ####[facility] [address] [place], [address] Bedside Glucoseon 09-28-2024 FINGERSTICK GLU 180 mg/dL High 74-106 [facility] Comment on above: Result Comment: OLGA GEMENT OF PATIENT CARE PER NURSING PROTOCOL Performed By: #### L 501.080 ####[facility] [address] [place], [address] FINGERSTICK GLU 187 mg/dL High 74-106 [facility] Comment on above: Result Comment: OLGA GEMENT OF PATIENT CARE PER NURSING PROTOCOL Performed By: #### L 501.080 ####[facility] [address] [place], [address] FINGERSTICK GLU 254 mg/dL High -106 [facility] Comment on above: Result Comment: OLGA GEMENT OF PATIENT CARE PER NURSING PROTOCOL Performed By: #### L 501.080 ####[facility] [address] [place], [address] FINGERSTICK GLU 146 mg/dL High 74-106 [facility] Comment on above: Result Comment: OLGA GEMENT OF PATIENT CARE PER NURSING PROTOCOL Performed By: #### L 501.080 ####[facility] [address] [place], [address] Bedside Glucoseon 09-27-2024 FINGERSTICK GLU 178 mg/dL High [address] [place] [address] Comment on above: Result Comment: OLGA GEMENT OF PATIENT CARE PER NURSING PROTOCOL Performed By: #### L 501.080 ####[facility] [address] [place], [address] FINGERSTICK GLU 198 mg/dL High [facility]106 [facility] Comment on above: Result Comment: OLGA GEMENT OF PATIENT CARE PER NURSING PROTOCOL Performed By: #### L 501.080 ####[facility] [address] [place], [address] FINGERSTICK GLU 319 mg/dL High [facility]106 [facility] Comment on above: Result Comment: OLGA GEMENT OF PATIENT CARE PER NURSING PROTOCOL Performed By: #### L 501.080 ####[facility] [address] [place], [address] FINGERSTICK GLU 223 mg/dL High [address] [place] [address] Comment on above: Result Comment: OLGA GEMENT OF PATIENT CARE PER NURSING PROTOCOL Performed By: #### L 501.080 ####[facility] [address] [place], [address] Bedside Glucoseon 09-26-2024 FINGERSTICK GLU 330 mg/dL High [address] [place] [address] Comment on above: Result Comment: OLGA GEMENT OF PATIENT CARE PER NURSING PROTOCOL Performed By: #### L 501.080 ####[facility] [address] [place], [address] FINGERSTICK GLU 304 mg/dL High [address] [place] [address] Comment on above: Result Comment: OLGA GEMENT OF PATIENT CARE PER NURSING PROTOCOL Performed By: #### L 501.080 ####[facility] [address] [place], [address] FINGERSTICK GLU 277 mg/dL High [address] [place] [address] Comment on above: Result Comment: OLGA GEMENT OF PATIENT CARE PER NURSING PROTOCOL Performed By: #### L 501.080 ####[facility] [address] [place], [address] FINGERSTICK GLU 183 mg/dL [address] Comment on above: Result Comment: OLGA GEMENT OF PATIENT CARE PER NURSING PROTOCOL Performed By: #### L 501.080 ####[facility] [address] [place], [address] Bedside Glucoseon 09-25-2024 FINGERSTICK GLU 285 mg/dL High [address] [place] [address] Comment on above: Result Comment: OLGA GEMENT OF PATIENT CARE PER NURSING PROTOCOL Performed By: #### L 501.080 ####[facility] [address] [place], [address] FINGERSTICK GLU 293 mg/dL [address] Comment on above: Result Comment: OLGA GEMENT OF PATIENT CARE PER NURSING PROTOCOL Performed By: #### L 501.080 ####[facility] [address] [place], [address] FINGERSTICK GLU 219 mg/dL High [address] [place] [address] Comment on above: Result Comment: OLGA GEMENT OF PATIENT CARE PER NURSING PROTOCOL Performed By: #### L 501.080 ####[facility] [address] [place], [address] FINGERSTICK GLU 152 mg/dL High 74-106 [facility] Comment on above: Result Comment: OLGA GEMENT OF PATIENT CARE PER NURSING PROTOCOL Performed By: #### L 501.080 ####[facility] [address] [place], [address] Bedside Glucoseon 09-24-2024 FINGERSTICK GLU 231 mg/dL High -106 [facility] Comment on above: Result Comment: OLGA GEMENT OF PATIENT CARE PER NURSING PROTOCOL Performed By: #### L 501.080 ####[facility] [address] [place], [address] FINGERSTICK GLU 221 mg/dL High [facility]106 [facility] Comment on above: Result Comment: OLGA GEMENT OF PATIENT CARE PER NURSING PROTOCOL Performed By: #### L 501.080 ####[facility] [address] [place], [address] FINGERSTICK GLU 272 mg/dL High [facility]106 [facility] Comment on above: Result Comment: OLGA GEMENT OF PATIENT CARE PER NURSING PROTOCOL Performed By: #### L 501.080 ####[facility] [address] [place], [address] FINGERSTICK GLU 174 mg/dL High [address] [place] [address] Comment on above: Result Comment: OLGA GEMENT OF PATIENT CARE PER NURSING PROTOCOL Performed By: #### L 501.080 ####[facility] [address] [place], [address] COVID 19 AG RAPID (MANNY Peters)on 09-24-2024 SARS-CoV-2 (COVID-19) RNA JOANNA+probe Ql (Unsp spec) Normal [facility] Comment on above: Performed By: #### M 100.505 ####[facility] [address] [place], [address] Bedside Glucoseon 09-23-2024 FINGERSTICK GLU 264 mg/dL High [address] [facility] Comment on above: Result Comment: OLGA GEMENT OF PATIENT CARE PER NURSING PROTOCOL Performed By: #### L 501.080 ####[facility] [address] [place], [address] FINGERSTICK GLU 215 mg/dL High 74-106 [facility] Comment on above: Result Comment: OLGA GEMENT OF PATIENT CARE PER NURSING PROTOCOL Performed By: #### L 501.080 ####[facility] [address] [place], [address] FINGERSTICK GLU 269 mg/dL High [facility]106 [facility] Comment on above: Result Comment: OLGA GEMENT OF PATIENT CARE PER NURSING PROTOCOL Performed By: #### L 501.080 ####[facility] [address] [place], [address] FINGERSTICK GLU 150 mg/dL High [address] [place] [address] Comment on above: Result Comment: OLGA GEMENT OF PATIENT CARE PER NURSING PROTOCOL Performed By: #### L 501.080 ####[facility] [address] [place], [address] Basic Metabolic Profile (BMP )on 09-22-2024 BUN/CRE 23.1 RATIO High 10-20 [facility] [facility] Comment on above: Performed By: #### L 500.2500, L100.0100 ####[facility] [address] [place], [address] CA,Total 9.0 mg/dL Normal 8.5-10.1 [facility] Comment on above: Performed By: #### L 500.2500, L100.0100 ####[facility] [address] [place], [address] Chloride [Moles/Vol] 107 mmol/L Normal 98-107 [facility] Comment on above: Performed By: #### L 500.2500, L100.0100 ####[facility] [address] [place], [address] CO2 [Moles/Vol] 24.0 mmol/L Normal 21.0-32.0 [facility] Comment on above: Performed By: #### L 500.2500, L100.0100 ####[facility] [address] [place], [address] Creatinine [Mass/Vol] 0.74 mg/dL Normal 0.55-1.02 [facility] Comment on above: Result Comment: The validity of the calculated GFR GFRAA in patients over70 years has not been determined. Clinical correlation isessential. Performed By: #### L 500.2500, L100.0100 ####[facility] [address] [place], [address] ECRCL 49.86 ml/min Normal [facility] Comment on above: Performed By: #### L 500.2500, L100.0100 ####[facility] [address] [place], [address] EST GFR - AA 97 mL/min Normal >60 [facility] Comment on above: Result Comment: Afri can Pakistani GFR Calc Performed By: #### L 500.2500, L100.0100 ####[facility] [address] [place], [address] GAP 9 Normal 5-15 [facility] Comment on above: Performed By: #### L 500.2500, L100.0100 ####[facility] [address] [place], [address] GFR/1.73 sq M.predicted among non-blacks MDRD (S/P/Bld) [Vol rate/Area] 80 mL/min/{1.73_m2} Normal >60 [facility] Comment on above: Result Comment: Non- GFR Calc Performed By: #### L 500.2500, L100.0100 ####[facility] [address] [place], [address] Glucose [Mass/Vol] 129 mg/dL High 74-106 [facility] Comment on above: Result Comment: Fast ing Glucose result greater than or equal to 126 mg/dLsuggests DIABETES MELLITUS per A.D.A. criteria. Performed By: #### L 500.2500, L100.0100 ####[facility] [address] [place], [address] Potassium [Moles/Vol] 4.1 mmol/L Normal 3.5-5.1 [facility] Comment on above: Performed By: #### L 500.2500, L100.0100 ####[facility] [address] [place], [address] Sodium [Moles/Vol] 140 mmol/L Normal 136-145 [facility] Comment on above: Performed By: #### L 500.2500, L100.0100 ####[facility] [address] [place], [address] Urea nitrogen [Mass/Vol] 17 mg/dL Normal 7-18 [facility] Comment on above: Performed By: #### L 500.2500, L100.0100 ####[facility] [address] [place], [address] Bedside Glucoseon 09-22-2024 FINGERSTICK GLU 159 mg/dL High 74-106 [facility] Comment on above: Result Comment: OLGA GEMENT OF PATIENT CARE PER NURSING PROTOCOL Performed By: #### L 501.080 ####[facility] [address] [place], [address] FINGERSTICK GLU 128 mg/dL High 74-106 [facility] Comment on above: Result Comment: OLGA GEMENT OF PATIENT CARE PER NURSING PROTOCOL Performed By: #### L 501.080 ####[facility] [address] [place], [address] FINGERSTICK GLU 68 mg/dL Low 74-106 [facility] Comment on above: Result Comment: OLGA GEMENT OF PATIENT CARE PER NURSING PROTOCOL Performed By: #### L 501.080 ####[facility] [address] [place], [address] FINGERSTICK GLU 86 mg/dL Normal 74-106 [facility] Comment on above: Result Comment: OLGA GEMENT OF PATIENT CARE PER NURSING PROTOCOL Performed By: #### L 501.080 ####[facility] [address] [place], [address] FINGERSTICK GLU 66 mg/dL Low 74-106 [facility] Comment on above: Result Comment: OLGA GEMENT OF PATIENT CARE PER NURSING PROTOCOL Performed By: #### L 501.080 ####[facility] [address] [place], [address] FINGERSTICK GLU 218 mg/dL High 74-106 [facility] Comment on above: Result Comment: OLGA GEMENT OF PATIENT CARE PER NURSING PROTOCOL Performed By: #### L 501.080 ####[facility] [address] [place], [address] FINGERSTICK GLU 136 mg/dL High 74-106 [facility] Comment on above: Result Comment: OLGA GEMENT OF PATIENT CARE PER NURSING PROTOCOL Performed By: #### L 501.080 ####[facility] [address] [place], [address] CBC W/Diff, Automatedon 09-13 0-2024 Absolute Lymph 2.20 X10 3/uL Normal 0.83-4.51 [facility] Comment on above: Performed By: #### L 500.2500, L100.0100 ####[facility] [address] [place], [address] Absolute Neut 3.5 X10 3/uL Normal 2.0-7.7 [facility] Comment on above: Performed By: #### L 500.2500, L100.0100 ####[facility] [address] [place], [address] Basophils/100 WBC (Bld) 0.6 % Normal 0-1 [facility] Comment on above: Performed By: #### L 500.2500, L100.0100 ####[facility] [address] [place], [address] Eosinophils/100 WBC (Bld) 4.7 % Normal 0-5 [facility] Comment on above: Performed By: #### L 500.2500, L100.0100 ####[facility] [address] [place], [address] Erythrocyte distribution width (RBC) [Ratio] 12.9 % Normal 11.6-14.6 [facility] Comment on above: Performed By: #### L 500.2500, L100.0100 ####[facility] [address] [place], [address] Hematocrit (Bld) [Volume fraction] 35.2 % Low 37-47 [facility] Comment on above: Performed By: #### L 500.2500, L100.0100 ####[facility] [address] [place], [address] Hemoglobin (Bld) [Mass/Vol] 11.8 g/dL Low 12.0-15.0 [facility] Comment on above: Performed By: #### L 500.2500, L100.0100 ####[facility] [address] [place], [address] IG% 0.300 Normal 0.0-0.9 [facility] Comment on above: Result Comment: IG% - Immature Granulocytes (promyelocytes, myelocytes andmetamyelocytes) > 1% indicates that a LEFT SHIFT is Present. Performed By: #### L 500.2500, L100.0100 ####[facility] [address] [place], [address] Lymphocytes/100 WBC (Bld) 32.3 % Normal 19-41 [facility] Comment on above: Performed By: #### L 500.2500, L100.0100 ####[facility] [address] [place], [address] MCH (RBC) [Entitic mass] 31.2 pg Normal 27.0-32.0 [facility] Comment on above: Performed By: #### L 500.2500, L100.0100 ####[facility] [address] [place], [address] MCHC (RBC) [Mass/Vol] 33.5 g/dL Normal 32-36 [facility] Comment on above: Performed By: #### L 500.2500, L100.0100 ####[facility] [address] [place], [address] MCV (RBC) [Entitic vol] 93.1 fL Normal 81-99 [facility] Comment on above: Performed By: #### L 500.2500, L100.0100 ####[facility] [address] [place], [address] Monocytes/100 WBC (Bld) 11.3 % High 0-10 [facility] Comment on above: Performed By: #### L 500.2500, L100.0100 ####[facility] [address] [place], [address] Neutrophils/100 WBC (Bld) 50.8 % Normal 47-70 [facility] Comment on above: Performed By: #### L 500.2500, L100.0100 ####[facility] [address] [place], [address] Nucleated RBC (Bld) [#/Vol] 0 10*3/uL Normal 0-5 [facility] Comment on above: Performed By: #### L 500.2500, L100.0100 ####[facility] [address] [place], [address] Platelet mean volume (Bld) [Entitic vol] 10.1 fL Normal 6.2-12.0 [facility] Comment on above: Performed By: #### L 500.2500, L100.0100 ####[facility] [address] [place], [address] Platelets (Bld) [#/Vol] 266 10*3/uL Normal 150-450 [facility] Comment on above: Performed By: #### L 500.2500, L100.0100 ####[facility] [address] [place], [address] RBC (Bld) [#/Vol] 3.78 10*6/uL Low 4.2-5.4 [facility] Comment on above: Performed By: #### L 500.2500, L100.0100 ####[facility] [address] [place], [address] RDW SD 43.8 fl Normal 35.1-43.9 [facility] Comment on above: Performed By: #### L 500.2500, L100.0100 ####[facility] [address] [place], [address] WBC (Bld) [#/Vol] 6.8 10*3/uL Normal 4.4-11.0 [facility] Comment on above: Performed By: #### L 500.2500, L100.0100 ####[facility] [address] [place], [address] Bedside Glucoseon 09-21-2024 FINGERSTICK GLU 180 mg/dL High 74-106 [facility] Comment on above: Result Comment: OLGA GEMENT OF PATIENT CARE PER NURSING PROTOCOL Performed By: #### L 501.080 ####[facility] [address] [place], [address] FINGERSTICK GLU 116 mg/dL High 74-106 [facility] Comment on above: Result Comment: OLGA GEMENT OF PATIENT CARE PER NURSING PROTOCOL Performed By: #### L 501.080 ####[facility] [address] [place], [address] FINGERSTICK GLU 80 mg/dL Normal 74-106 [facility] Comment on above: Result Comment: OLGA GEMENT OF PATIENT CARE PER NURSING PROTOCOL Performed By: #### L 501.080 ####[facility] [address] [place], [address] FINGERSTICK GLU 211 mg/dL High 74-106 [facility] Comment on above: Result Comment: OLGA GEMENT OF PATIENT CARE PER NURSING PROTOCOL Performed By: #### L 501.080 ####[facility] [address] [place], [address] FINGERSTICK GLU 147 mg/dL High 74-106 [facility] Comment on above: Result Comment: OLGA GEMENT OF PATIENT CARE PER NURSING PROTOCOL Performed By: #### L 501.080 ####[facility] [address] [place], [address] FINGERSTICK GLU 179 mg/dL High 74-106 [facility] Comment on above: Result Comment: OLGA GEMENT OF PATIENT CARE PER NURSING PROTOCOL Performed By: #### L 501.080 ####[facility] [address] [place], [address] Bedside Glucoseon 09-20-2024 FINGERSTICK GLU 128 mg/dL High -106 [facility] Comment on above: Result Comment: OLGA GEMENT OF PATIENT CARE PER NURSING PROTOCOL Performed By: #### L 501.080 ####[facility] [address] [place], [address] FINGERSTICK GLU 210 mg/dL High 74-106 [facility] Comment on above: Result Comment: OLGA GEMENT OF PATIENT CARE PER NURSING PROTOCOL Performed By: #### L 501.080 ####[facility] [address] [place], [address] FINGERSTICK GLU 171 mg/dL High 74-106 [facility] Comment on above: Result Comment: OLGA GEMENT OF PATIENT CARE PER NURSING PROTOCOL Performed By: #### L 501.080 ####[facility] [address] [place], [address] Bedside Glucoseon 09-19-2024 FINGERSTICK GLU 104 mg/dL Normal 74-106 [facility] Comment on above: Result Comment: OLGA GEMENT OF PATIENT CARE PER NURSING PROTOCOL Performed By: #### L 501.080 ####[facility] [address] [place], [address] FINGERSTICK GLU 113 mg/dL High 74-106 [facility] Comment on above: Result Comment: OLGA GEMENT OF PATIENT CARE PER NURSING PROTOCOL Performed By: #### L 501.080 ####[facility] [address] [place], [address] FINGERSTICK GLU 166 mg/dL High 74-106 [facility] Comment on above: Result Comment: OLGA GEMENT OF PATIENT CARE PER NURSING PROTOCOL Performed By: #### L 501.080 ####[facility] [address] [place], [address] FINGERSTICK GLU 161 mg/dL High 74-106 [facility] Comment on above: Result Comment: OLGA GEMENT OF PATIENT CARE PER NURSING PROTOCOL Performed By: #### L 501.080 ####[facility] [address] [place], [address] Modified Barium Swallow Stud yon 09-19-2024 Modified Barium Swallow Study Normal [facility] Bedside Glucoseon 09-18-2024 FINGERSTICK GLU 152 mg/dL High 74-106 [facility] Comment on above: Result Comment: OLGA GEMENT OF PATIENT CARE PER NURSING PROTOCOL Performed By: #### L 501.080 ####[facility] [address] [place], [address] FINGERSTICK GLU 129 mg/dL High 74-106 [facility] Comment on above: Result Comment: OLGA GEMENT OF PATIENT CARE PER NURSING PROTOCOL Performed By: #### L 501.080 ####[facility] [address] [place], [address] FINGERSTICK GLU 195 mg/dL High -[address] [place] [address] Comment on above: Result Comment: OLGA GEMENT OF PATIENT CARE PER NURSING PROTOCOL Performed By: #### L 501.080 ####[facility] [address] [place], [address] FINGERSTICK GLU 168 mg/dL High [address] [place] [address] Comment on above: Result Comment: OLGA GEMENT OF PATIENT CARE PER NURSING PROTOCOL Performed By: #### L 501.080 ####[facility] [address] [place], [address] Bedside Glucoseon 09-17-2024 FINGERSTICK GLU 110 mg/dL High -106 [facility] Comment on above: Result Comment: OLGA GEMENT OF PATIENT CARE PER NURSING PROTOCOL Performed By: #### L 501.080 ####[facility] [address] [place], [address] FINGERSTICK GLU 117 mg/dL High -106 [facility] Comment on above: Result Comment: OLGA GEMENT OF PATIENT CARE PER NURSING PROTOCOL Performed By: #### L 501.080 ####[facility] [address] [place], [address] FINGERSTICK GLU 98 mg/dL Normal -106 [facility] Comment on above: Result Comment: OLGA GEMENT OF PATIENT CARE PER NURSING PROTOCOL Performed By: #### L 501.080 ####[facility] [address] [place], [address] FINGERSTICK GLU 134 mg/dL High 74-106 [facility] Comment on above: Result Comment: OLGA GEMENT OF PATIENT CARE PER NURSING PROTOCOL Performed By: #### L 501.080 ####[facility] [address] [place], [address] FINGERSTICK GLU 113 mg/dL High 74-106 [facility] Comment on above: Result Comment: OLGA GEMENT OF PATIENT CARE PER NURSING PROTOCOL Performed By: #### L 501.080 ####[facility] [address] [place], [address] Bedside Glucoseon 09-16-2024 FINGERSTICK GLU 153 mg/dL High 74-106 [facility] Comment on above: Result Comment: OLGA GEMENT OF PATIENT CARE PER NURSING PROTOCOL Performed By: #### L 501.080 ####[facility] [address] [place], [address] FINGERSTICK GLU 177 mg/dL High 74-106 [facility] Comment on above: Result Comment: OLGA GEMENT OF PATIENT CARE PER NURSING PROTOCOL Performed By: #### L 501.080 ####[facility] [address] [place], [address] FINGERSTICK GLU 243 mg/dL High 74-106 [facility] Comment on above: Result Comment: OLGA GEMENT OF PATIENT CARE PER NURSING PROTOCOL Performed By: #### L 501.080 ####[facility] [address] [place], [address] FINGERSTICK GLU 130 mg/dL High 74-106 [facility] Comment on above: Result Comment: OLGA GEMENT OF PATIENT CARE PER NURSING PROTOCOL Performed By: #### L 501.080 ####[facility] [address] [place], [address] Basic Metabolic Profile (BMP )on 09-15-2024 BUN/CRE 18.8 RATIO Normal 10-20 [facility] Comment on above: Performed By: #### L 501.5200, L500.2500 ####[facility] [address] [place], [address] CA,Total 9.1 mg/dL Normal 8.5-10.1 [facility] Comment on above: Performed By: #### L 501.5200, L500.2500 ####[facility] [address] [place], [address] Chloride [Moles/Vol] 106 mmol/L Normal 98-107 [facility] Comment on above: Performed By: #### L 501.5200, L500.2500 ####[facility] [address] [place], [address] CO2 [Moles/Vol] 26.0 mmol/L Normal 21.0-32.0 [facility] Comment on above: Performed By: #### L 501.5200, L500.2500 ####[facility] [address] [place], [address] Creatinine [Mass/Vol] 0.80 mg/dL Normal 0.55-1.02 [facility] Comment on above: Result Comment: The validity of the calculated GFR GFRAA in patients over70 years has not been determined. Clinical correlation isessential. Performed By: #### L 501.5200, L500.2500 ####[facility] [address] [place], [address] ECRCL 48.73 ml/min Normal [facility] Comment on above: Performed By: #### L 501.5200, L500.2500 ####[facility] [address] [place], [address] EST GFR - AA 88 mL/min Normal >60 [facility] Comment on above: Result Comment: Afri can Pakistani GFR Calc Performed By: #### L 501.5200, L500.2500 ####[facility] [address] [place], [address] GAP 8 Normal 5-15 [facility] Comment on above: Performed By: #### L 501.5200, L500.2500 ####[facility] [address] [place], [address] GFR/1.73 sq M.predicted among non-blacks MDRD (S/P/Bld) [Vol rate/Area] 73 mL/min/{1.73_m2} Normal >60 [facility] Comment on above: Result Comment: Non- GFR Calc Performed By: #### L 501.5200, L500.2500 ####[facility] [address] [place], [address] Glucose [Mass/Vol] 119 mg/dL High 74-106 [facility] Comment on above: Result Comment: Fast ing Glucose result from 100 to 125 mg/dLsuggests IMPAIRED HOMEOSTASIS per A.D.A. criteria. Performed By: #### L 501.5200, L500.2500 ####[facility] [address] [place], [address] Potassium [Moles/Vol] 4.2 mmol/L Normal 3.5-5.1 [facility] Comment on above: Performed By: #### L 501.5200, L500.2500 ####[facility] [address] [place], [address] Sodium [Moles/Vol] 140 mmol/L Normal 136-145 [facility] Comment on above: Performed By: #### L 501.5200, L500.2500 ####[facility] [address] [place], [address] Urea nitrogen [Mass/Vol] 15 mg/dL Normal 7-18 [facility] Comment on above: Performed By: #### L 501.5200, L500.2500 ####[facility] [address] [place], [address] Bedside Glucoseon 09-15-2024 FINGERSTICK GLU 185 mg/dL High 74-106 [facility] Comment on above: Result Comment: OLGA GEMENT OF PATIENT CARE PER NURSING PROTOCOL Performed By: #### L 501.080 ####[facility] [address] [place], [address] FINGERSTICK GLU 105 mg/dL Normal 74-106 [facility] Comment on above: Result Comment: OLGA GEMENT OF PATIENT CARE PER NURSING PROTOCOL Performed By: #### L 501.080 ####[facility] [address] [place], [address] FINGERSTICK GLU 185 mg/dL High 74-106 [facility] Comment on above: Result Comment: OLGA GEMENT OF PATIENT CARE PER NURSING PROTOCOL Performed By: #### L 501.080 ####[facility] [address] [place], [address] FINGERSTICK GLU 123 mg/dL High 74-106 [facility] Comment on above: Result Comment: OLGA GEMENT OF PATIENT CARE PER NURSING PROTOCOL Performed By: #### L 501.080 ####[facility] [address] [place], [address] HH, Hemoglobin AND Hematocri ton 09-15-2024 Hematocrit (Bld) [Volume fraction] 35.7 % Low 37-47 [facility] Comment on above: Performed By: #### L 100.0600 ####[facility] [address] [place], [address] Hemoglobin (Bld) [Mass/Vol] 12.0 g/dL Normal 12.0-15.0 [facility] Comment on above: Performed By: #### L 100.0600 ####[facility] [address] [place], [address] Magnesiumon 09-15-2024 Magnesium [Mass/Vol] 1.9 mg/dL Normal 1.6-2.6 [facility] Comment on above: Performed By: #### L 501.5200, L500.2500 ####[facility] [address] [place], [address] Bedside Glucoseon 09-14-2024 FINGERSTICK GLU 203 mg/dL High 74-106 [facility] Comment on above: Result Comment: OLGA GEMENT OF PATIENT CARE PER NURSING PROTOCOL Performed By: #### L 501.080 ####[facility] [address] [place], [address] FINGERSTICK GLU 92 mg/dL Normal 74-106 [facility] Comment on above: Result Comment: OLGA GEMENT OF PATIENT CARE PER NURSING PROTOCOL Performed By: #### L 501.080 ####[facility] [address] [place], [address] FINGERSTICK GLU 102 mg/dL Normal 74-106 [facility] Comment on above: Result Comment: OLGA GEMENT OF PATIENT CARE PER NURSING PROTOCOL Performed By: #### L 501.080 ####[facility] [address] [place], [address] FINGERSTICK GLU 221 mg/dL High 74-106 [facility] Comment on above: Result Comment: OLGA GEMENT OF PATIENT CARE PER NURSING PROTOCOL Performed By: #### L 501.080 ####[facility] [address] [place], [address] FINGERSTICK GLU 103 mg/dL Normal 74-106 [facility] Comment on above: Result Comment: OLGA GEMENT OF PATIENT CARE PER NURSING PROTOCOL Performed By: #### L 501.080 ####[facility] [address] [place], [address] Bedside Glucoseon 09-13-2024 FINGERSTICK GLU 144 mg/dL High 74-106 [facility] Comment on above: Result Comment: OLGA GEMENT OF PATIENT CARE PER NURSING PROTOCOL Performed By: #### L 501.080 ####[facility] [address] [place], [address] FINGERSTICK GLU 134 mg/dL High 74-106 [facility] Comment on above: Result Comment: OLGA GEMENT OF PATIENT CARE PER NURSING PROTOCOL Performed By: #### L 501.080 ####[facility] [address] [place], [address] FINGERSTICK GLU 143 mg/dL High 74-106 [facility] Comment on above: Result Comment: OLGA GEMENT OF PATIENT CARE PER NURSING PROTOCOL Performed By: #### L 501.080 ####[facility] [address] [place], [address] FINGERSTICK GLU 155 mg/dL High 74-106 [facility] Comment on above: Result Comment: OLGA GEMENT OF PATIENT CARE PER NURSING PROTOCOL Performed By: #### L 501.080 ####[facility] [address] [place], [address] Bedside Glucoseon 09-12-2024 FINGERSTICK GLU 90 mg/dL Normal 74-106 [facility] Comment on above: Result Comment: OLGA GEMENT OF PATIENT CARE PER NURSING PROTOCOL Performed By: #### L 501.080 ####[facility] [address] [place], [address] FINGERSTICK GLU 77 mg/dL Normal 74-106 [facility] Comment on above: Result Comment: OLGA GEMENT OF PATIENT CARE PER NURSING PROTOCOL Performed By: #### L 501.080 ####[facility] [address] [place], [address] FINGERSTICK GLU 98 mg/dL Normal 74-106 [facility] Comment on above: Result Comment: OLGA GEMENT OF PATIENT CARE PER NURSING PROTOCOL Performed By: #### L 501.080 ####[facility] [address] [place], [address] FINGERSTICK GLU 144 mg/dL High 74-106 [facility] Comment on above: Result Comment: OLGA GEMENT OF PATIENT CARE PER NURSING PROTOCOL Performed By: #### L 501.080 ####[facility] [address] [place], [address] FINGERSTICK GLU 137 mg/dL High 74-106 [facility] Comment on above: Result Comment: OLGA GEMENT OF PATIENT CARE PER NURSING PROTOCOL Performed By: #### L 501.080 ####[facility] [address] [facility] [address] Metanephrine Frac 24 HR URon 09-12-2024 Metaneph,UR 24H 147 ug/24 hr Normal 36-209 [facility] Comment on above: Order Comment: Test( s) [id number]-Hoiyzcagumlgyoh, Ur; [id number]-Rlilktttjswc, Urwas developed and its performance characteristicsdetermined by [facility]. It has not been cleared or approvedby the Food and Drug Administration. Result Comment: Perf ormed at: [facility] [id number] Director: Toni Galicia MD, Phone: [phone] Performed By: #### L 3600.1100 ####[facility] [address] [facility] [address] Metanephrines,U 64 ug/L Normal Undefined [facility] Comment on above: Order Comment: Test( s) [id number]-Tcvwfcvuflefszw, Ur; 853170-Gmbtnjqhufwk, Urwas developed and its performance characteristicsdetermined by [facility]. It has not been cleared or approvedby the Food and Drug Administration. Performed By: #### L 3600.1100 ####[facility] [address] [place], [address] Normetan,UR 24h 421 ug/24 hr Normal 131-612 [facility] Comment on above: Order Comment: Test( s) 695586-Queixzfvljlplqp, Ur; 134819-Omtgtxnanpka, Urwas developed and its performance characteristicsdetermined by [facility]. It has not been cleared or approvedby the Food and Drug Administration. Performed By: #### L 3600.1100 ####[facility] [address] [place], [address] Normetanephrine 183 ug/L Normal Undefined [facility] Comment on above: Order Comment: Test( s) 292847-Mjjlljdampreceg, Ur; 093390-Zpitwwavpxri, Urwas developed and its performance characteristicsdetermined by [employer]. It has not been cleared or approvedby the Food and Drug Administration. Performed By: #### L 3600.1100 ####[facility] [address] [place], [address] Bedside Glucoseon 09-11-2024 FINGERSTICK GLU 228 mg/dL High [address] [place] [address] Comment on above: Result Comment: OLGA GEMENT OF PATIENT CARE PER NURSING PROTOCOL Performed By: #### L 501.080 ####[facility] [address] [place], [address] FINGERSTICK GLU 130 mg/dL High [facility]106 [facility] Comment on above: Result Comment: OLGA GEMENT OF PATIENT CARE PER NURSING PROTOCOL Performed By: #### L 501.080 ####[facility] [address] [place], [address] FINGERSTICK GLU 149 mg/dL High [facility]106 [facility] Comment on above: Result Comment: OLGA GEMENT OF PATIENT CARE PER NURSING PROTOCOL Performed By: #### L 501.080 ####[facility] [address] [place], [address] FINGERSTICK GLU 184 mg/dL High [facility]106 [facility] Comment on above: Result Comment: OLGA GOMEZ OF PATIENT CARE PER NURSING PROTOCOL Performed By: #### L 501.080 ####[facility] [address] [place], [address] Catecholamines, 24 URon 01-3 0-5 Dopamine, Urine 66 ug/L Normal Undefined [facility] Comment on above: Order Comment: Test( s) 610706-Atzxqrilsvx, Urine; 905863-Iwhynuxddjltlg, Ur; 011071-Lunpamao, Urinewas developed and its performance characteristicsdetermined by [employer]. It has not been cleared or approvedby the Food and Drug Administration. Performed By: #### L 3600.0150 ####[facility] [address] [place], [address] Dopamine,U,24HR 152 ug/24 hr Normal 0-510 [facility] Comment on above: Order Comment: Test( s) 515619-Iomsaialesm, Urine; 193101-Wqzwymxdqcamoy, Ur; 871448-Iyxxsmmw, Urinewas developed and its performance characteristicsdetermined by [employer]. It has not been cleared or approvedby the Food and Drug Administration. Result Comment: Perf ormed at: [address] [id number] Director: Toni Galicia MD, Phone: [phone] TESTING PERFORMED AT [facility]. ORIGINAL REPORT ON FILE IN LAB CONTAINS ADDITIONAL TEST SITE INFORMATION. Performed By: #### L 3600.0150 ####[facility] [address] [place], [address] Epineph.,U,24HR 9 ug/24 hr Normal 0-20 [facility] Comment on above: Order Comment: Test( s) 664012-Vaszqnevkvy, Urine; 569857-Zwjuznkzefdfqd, Ur; 000434-Kbdvyftm, Urinewas developed and its performance characteristicsdetermined by [facility]. It has not been cleared or approvedby the Food and Drug Administration. Performed By: #### L 3600.0150 ####[facility] [address] [place], [place], [address] Epinephrine, U 4 ug/L Normal Undefined [facility] Comment on above: Order Comment: Test( s) 904508-Bqrbihnqpxi, Urine; 453355-Fahuidprhblxhn, Ur; 381882-Avrgkozq, Urinewas developed and its performance characteristicsdetermined by [facility]. It has not been cleared or approvedby the Food and Drug Administration. Performed By: #### L 3600.0150 ####[facility] [address] [place], [place], [address] Norepin.,U,24HR 64 ug/24 hr Normal 0-135 [facility] Comment on above: Order Comment: Test( s) 535053-Anumirxsuvg, Urine; 840690-Dfzbawcldopxpl, Ur; 846363-Tftlezyz, Urinewas developed and its performance characteristicsdetermined by [facility]. It has not been cleared or approvedby the Food and Drug Administration. Performed By: #### L 3600.0150 ####[facility] [address] [place], [place], [address] Norepinephrin,U 28 ug/L Normal Undefined [facility] Comment on above: Order Comment: Test( s) 177101-Uyksbhyygiy, Urine; 143273-Lrxsqommuqcnpn, Ur; 325841-Badpfvsv, Urinewas developed and its performance characteristicsdetermined by [facility]. It has not been cleared or approvedby the Food and Drug Administration. Performed By: #### L 3600.0150 ####[facility] [address] [place], [place], [address] Bedside Glucoseon 09-10-2024 FINGERSTICK GLU 133 mg/dL High 74-106 [facility] Comment on above: Result Comment: OLGA GEMENT OF PATIENT CARE PER NURSING PROTOCOL Performed By: #### L 501.080 ####[facility] [address] [place], [address] FINGERSTICK GLU 81 mg/dL Normal 74-106 [facility] Comment on above: Result Comment: OLGA GEMENT OF PATIENT CARE PER NURSING PROTOCOL Performed By: #### L 501.080 ####[facility] [address] [place], [address] FINGERSTICK GLU 57 mg/dL Low 74-106 [facility] Comment on above: Result Comment: OLGA GEMENT OF PATIENT CARE PER NURSING PROTOCOL Performed By: #### L 501.080 ####[facility] [address] [place], [address] FINGERSTICK GLU 208 mg/dL High 74-106 [facility] Comment on above: Result Comment: OLGA GEMENT OF PATIENT CARE PER NURSING PROTOCOL Performed By: #### L 501.080 ####[facility] [address] [place], [address] FINGERSTICK GLU 151 mg/dL High 74-106 [facility] Comment on above: Result Comment: OLGA GEMENT OF PATIENT CARE PER NURSING PROTOCOL Performed By: #### L 501.080 ####[facility] [address] [place], [address] Urine Cultureon 09-10-2024 URC Normal [facility] Comment on above: Performed By: #### M 100.2200 ####[facility] [address] [place], [address] Wound Cultureon 09-10-2024 WC Normal [facility] Comment on above: Performed By: #### M 100.3000, M100.2000 ####[facility] [address] [place], [address] Bedside Glucoseon 09-09-2024 FINGERSTICK GLU 157 mg/dL High 74-106 [facility] Comment on above: Result Comment: OLGA GEMENT OF PATIENT CARE PER NURSING PROTOCOL Performed By: #### L 501.080 ####[facility] [address] [place], [address] FINGERSTICK GLU 50 mg/dL Low 74-106 [facility] Comment on above: Result Comment: OLGA GEMENT OF PATIENT CARE PER NURSING PROTOCOL Performed By: #### L 501.080 ####[facility] [address] [facility] [address] FINGERSTICK GLU 103 mg/dL Normal 74-106 [facility] Comment on above: Result Comment: OLGA GEMENT OF PATIENT CARE PER NURSING PROTOCOL Performed By: #### L 501.080 ####[facility] [address] [place], [address] FINGERSTICK GLU 181 mg/dL High 74-106 [facility] Comment on above: Result Comment: OLGA GEMENT OF PATIENT CARE PER NURSING PROTOCOL Performed By: #### L 501.080 ####[facility] [address] [place], [address] FINGERSTICK GLU 99 mg/dL Normal 74-106 [facility] Comment on above: Result Comment: OLGA GEMENT OF PATIENT CARE PER NURSING PROTOCOL Performed By: #### L 501.080 ####[facility] [address] [place], [address] FINGERSTICK GLU 245 mg/dL High 74-106 [facility] Comment on above: Result Comment: OLGA GEMENT OF PATIENT CARE PER NURSING PROTOCOL Performed By: #### L 501.080 ####[facility] [address] [place], [address] FINGERSTICK GLU 121 mg/dL High 74-106 [facility] Comment on above: Result Comment: OLGA GEMENT OF PATIENT CARE PER NURSING PROTOCOL Performed By: #### L 501.080 ####[facility] [address] [place], [address] Basic Metabolic Profile (BMP )on 09-08-2024 BUN/CRE 20.7 RATIO High 10-20 [facility] Comment on above: Performed By: #### L 501.2300, L100.0500, L500.2500, L501.5200 ####[facility] [address] [place], [address] CA,Total 9.6 mg/dL Normal 8.5-10.1 [facility] Comment on above: Performed By: #### L 501.2300, L100.0500, L500.2500, L501.5200 ####[facility] [address] [place], [address] Chloride [Moles/Vol] 102 mmol/L Normal 98-107 [facility] Comment on above: Performed By: #### L 501.2300, L100.0500, L500.2500, L501.5200 ####[facility] [address] [place], [address] CO2 [Moles/Vol] 26.0 mmol/L Normal 21.0-32.0 [facility] Comment on above: Performed By: #### L 501.2300, L100.0500, L500.2500, L501.5200 ####[facility] [address] [place], [address] Creatinine [Mass/Vol] 0.82 mg/dL Normal 0.55-1.02 [facility] Comment on above: Result Comment: The validity of the calculated GFR GFRAA in patients over70 years has not been determined. Clinical correlation isessential. Performed By: #### L 501.2300, L100.0500, L500.2500, L501.5200 ####[facility] [address] [place], [address] ECRCL 47.91 ml/min Normal [facility] Comment on above: Performed By: #### L 501.2300, L100.0500, L500.2500, L501.5200 ####[facility] [address] [place], [address] EST GFR - AA 86 mL/min Normal >60 [facility] Comment on above: Result Comment: Afri can Pakistani GFR Calc Performed By: #### L 501.2300, L100.0500, L500.2500, L501.5200 ####[facility] [address] [place], [address] GAP 10 Normal 5-15 [facility] Comment on above: Performed By: #### L 501.2300, L100.0500, L500.2500, L501.5200 ####[facility] [address] [place], [address] GFR/1.73 sq M.predicted among non-blacks MDRD (S/P/Bld) [Vol rate/Area] 71 mL/min/{1.73_m2} Normal >60 [facility] Comment on above: Result Comment: Non- GFR Calc Performed By: #### L 501.2300, L100.0500, L500.2500, L501.5200 ####[facility] [address] [place], [address] Glucose [Mass/Vol] 188 mg/dL High 74-106 [facility] Comment on above: Result Comment: Fast ing Glucose result greater than or equal to 126 mg/dLsuggests DIABETES MELLITUS per A.D.A. criteria. Performed By: #### L 501.2300, L100.0500, L500.2500, L501.5200 ####[facility] [address] [place], [address] Potassium [Moles/Vol] 4.4 mmol/L Normal 3.5-5.1 [facility] Comment on above: Performed By: #### L 501.2300, L100.0500, L500.2500, L501.5200 ####[facility] [address] [place], [address] Sodium [Moles/Vol] 138 mmol/L Normal 136-145 [facility] Comment on above: Performed By: #### L 501.2300, L100.0500, L500.2500, L501.5200 ####[facility] [address] [place], [address] Urea nitrogen [Mass/Vol] 17 mg/dL Normal 7-18 [facility] Comment on above: Performed By: #### L 501.2300, L100.0500, L500.2500, L501.5200 ####[facility] [address] [place], [address] Bedside Glucoseon 09-08-2024 FINGERSTICK GLU 182 mg/dL High 74-106 [facility] Comment on above: Result Comment: OLGA GEMENT OF PATIENT CARE PER NURSING PROTOCOL Performed By: #### L 501.080 ####[facility] [address] [place], [address] FINGERSTICK GLU 260 mg/dL High 74-106 [facility] Comment on above: Result Comment: OLGA GEMENT OF PATIENT CARE PER NURSING PROTOCOL Performed By: #### L 501.080 ####[facility] [address] [place], [address] FINGERSTICK GLU 265 mg/dL High 74-106 [facility] Comment on above: Result Comment: OLGA GEMENT OF PATIENT CARE PER NURSING PROTOCOL Performed By: #### L 501.080 ####[facility] [address] [place], [address] FINGERSTICK GLU 205 mg/dL High 74-106 [facility] Comment on above: Result Comment: OLGA GEMENT OF PATIENT CARE PER NURSING PROTOCOL Performed By: #### L 501.080 ####[facility] [address] [place], [address] FINGERSTICK GLU 165 mg/dL High 74-106 [facility] Comment on above: Result Comment: OLGA JASON OF PATIENT CARE PER NURSING PROTOCOL Performed By: #### L 501.080 ####[facility] [address] [place], [address] CBC-Complete Blood Cnt No Di ffon 09-08-2024 Erythrocyte distribution width (RBC) [Ratio] 13.2 % Normal 11.6-14.6 [facility] Comment on above: Performed By: #### L 501.2300, L100.0500, L500.2500, L501.5200 ####[facility] [address] [place], [address] Hematocrit (Bld) [Volume fraction] 36.2 % Low 37-47 [facility] Comment on above: Performed By: #### L 501.2300, L100.0500, L500.2500, L501.5200 ####[facility] [address] [place], [address] Hemoglobin (Bld) [Mass/Vol] 12.1 g/dL Normal 12.0-15.0 [facility] Comment on above: Performed By: #### L 501.2300, L100.0500, L500.2500, L501.5200 ####[facility] [address] [place], [address] MCH (RBC) [Entitic mass] 31.3 pg Normal 27.0-32.0 [facility] Comment on above: Performed By: #### L 501.2300, L100.0500, L500.2500, L501.5200 ####[facility] [address] [place], [address] MCHC (RBC) [Mass/Vol] 33.4 g/dL Normal 32-36 [facility] Comment on above: Performed By: #### L 501.2300, L100.0500, L500.2500, L501.5200 ####[facility] [address] [place], [address] MCV (RBC) [Entitic vol] 93.8 fL Normal 81-99 [facility] Comment on above: Performed By: #### L 501.2300, L100.0500, L500.2500, L501.5200 ####[facility] [address] [place], [address] Platelet mean volume (Bld) [Entitic vol] 9.6 fL Normal 6.2-12.0 [facility] Comment on above: Performed By: #### L 501.2300, L100.0500, L500.2500, L501.5200 ####[facility] [address] [place], [address] Platelets (Bld) [#/Vol] 312 10*3/uL Normal 150-450 [facility] Comment on above: Performed By: #### L 501.2300, L100.0500, L500.2500, L501.5200 ####[facility] [address] [place], [address] RBC (Bld) [#/Vol] 3.86 10*6/uL Low 4.2-5.4 [facility] Comment on above: Performed By: #### L 501.2300, L100.0500, L500.2500, L501.5200 ####[facility] [address] [place], [address] RDW SD 44.8 fl High 35.1-43.9 [facility] Comment on above: Performed By: #### L 501.2300, L100.0500, L500.2500, L501.5200 ####[facility] [address] [place], [address] WBC (Bld) [#/Vol] 9.6 10*3/uL Normal 4.4-11.0 [facility] Comment on above: Performed By: #### L 501.2300, L100.0500, L500.2500, L501.5200 ####[facility] [address] [place], [address] Gram Stainon 09-08-2024 peg site Gram Stain 4+ Gram negative rods No Epithelial cells 1+ Red Blood Cells Normal [facility] Comment on above: Performed By: #### M 100.3000, M100.2000 ####[facility] [address] [place], [address] Magnesiumon 09-08-2024 Magnesium [Mass/Vol] 1.8 mg/dL Normal 1.6-2.6 [facility] Comment on above: Performed By: #### L 501.2300, L100.0500, L500.2500, L501.5200 ####[facility] [address] [place], [address] Phosphoruson 09-08-2024 Phosphate [Mass/Vol] 4.8 mg/dL Normal 2.5-4.9 [facility] Comment on above: Performed By: #### L 501.2300, L100.0500, L500.2500, L501.5200 ####[facility] [address] [place], [address] Urinalysis, Completeon 09-08 RBC 0-5 SEEN Normal 0-5 [facility] Comment on above: Order Comment: KEYANA TER SPECIMEN Performed By: #### L 400.0001 ####[facility] [address] [place], [address] BACTERIA 2+ /hpf Normal None Seen [facility] Comment on above: Order Comment: KEYANA TER SPECIMEN Performed By: #### L 400.0001 ####[facility] [address] [place], [address] WBC >100 SEEN Normal 0-5 [facility] Comment on above: Order Comment: KEYANA TER SPECIMEN Performed By: #### L 400.0001 ####[facility] [address] [place], [address] EPI,SQUAMOUS 0 SEEN Normal 5-10 [facility] Comment on above: Order Comment: KEYANA TER SPECIMEN Performed By: #### L 400.0001 ####[facility] [address] [place], [address] Mucus Ql (Urine sed) 0 SEEN Normal [facility] Comment on above: Order Comment: KEYANA TER SPECIMEN Performed By: #### L 400.0001 ####[facility] [address] [place], [address] Bedside Glucoseon 09-07-2024 FINGERSTICK GLU 244 mg/dL High 74-106 [facility] Comment on above: Result Comment: OLGA GEMENT OF PATIENT CARE PER NURSING PROTOCOL Performed By: #### L 501.080 ####[facility] [address] [place], [address] FINGERSTICK GLU 228 mg/dL High 74-106 [facility] Comment on above: Result Comment: OLGA GEMENT OF PATIENT CARE PER NURSING PROTOCOL Performed By: #### L 501.080 ####[facility] [address] [place], [address] FINGERSTICK GLU 278 mg/dL High 74-106 [facility] Comment on above: Result Comment: OLGA GEMENT OF PATIENT CARE PER NURSING PROTOCOL Performed By: #### L 501.080 ####[facility] [address] [place], [address] FINGERSTICK GLU 215 mg/dL High 74-106 [facility] Comment on above: Result Comment: OLGA GEMENT OF PATIENT CARE PER NURSING PROTOCOL Performed By: #### L 501.080 ####[facility] [address] [place], [address] FINGERSTICK GLU 277 mg/dL High 74-106 [facility] Comment on above: Result Comment: OLGA GEMENT OF PATIENT CARE PER NURSING PROTOCOL Performed By: #### L 501.080 ####[facility] [address] [place], [address] FINGERSTICK GLU 232 mg/dL High 74-106 [facility] Comment on above: Result Comment: OLGA GEMENT OF PATIENT CARE PER NURSING PROTOCOL Performed By: #### L 501.080 ####[facility] [address] [place], [address] FINGERSTICK GLU 114 mg/dL High [address] [place] [address] Comment on above: Result Comment: OLGA GEMENT OF PATIENT CARE PER NURSING PROTOCOL Performed By: #### L 501.080 ####[facility] [address] [place], [address] Bedside Glucoseon 09-06-2024 FINGERSTICK GLU 197 mg/dL High -[address] [place] [address] Comment on above: Result Comment: OLGA GEMENT OF PATIENT CARE PER NURSING PROTOCOL Performed By: #### L 501.080 ####[facility] [address] [place], [address] FINGERSTICK GLU 221 mg/dL High [address] [place] [address] Comment on above: Result Comment: OLGA GEMENT OF PATIENT CARE PER NURSING PROTOCOL Performed By: #### L 501.080 ####[facility] [address] [place], [address] FINGERSTICK GLU 238 mg/dL High [address] [place] [address] Comment on above: Result Comment: OLGA GEMENT OF PATIENT CARE PER NURSING PROTOCOL Performed By: #### L 501.080 ####[facility] [address] [place], [address] FINGERSTICK GLU 209 mg/dL High 74-106 [facility] Comment on above: Result Comment: OLGA GEMENT OF PATIENT CARE PER NURSING PROTOCOL Performed By: #### L 501.080 ####[facility] [address] [place], [address] FINGERSTICK GLU 171 mg/dL High 74-106 [facility] Comment on above: Result Comment: OLGA GEMENT OF PATIENT CARE PER NURSING PROTOCOL Performed By: #### L 501.080 ####[facility] [address] [place], [address] Basic Metabolic Profile (BMP )on 09-05-2024 BUN Normal 7-18 [facility] Comment on above: Result Comment: Canc elled via OM: Order cancelled - Patient discharged Performed By: #### L 500.2500, L100.0100 ####[facility] [address] [place], [address] BUN/CRE Normal 10-20 [facility] Comment on above: Result Comment: Canc elled via OM: Order cancelled - Patient discharged Performed By: #### L 500.2500, L100.0100 ####[facility] [address] [place], [address] CA,Total Normal 8.5-10.1 [facility] Comment on above: Result Comment: Canc elled via OM: Order cancelled - Patient discharged Performed By: #### L 500.2500, L100.0100 ####[facility] [address] [place], [address] CL Normal 98-107 [facility] Comment on above: Result Comment: Canc elled via OM: Order cancelled - Patient discharged Performed By: #### L 500.2500, L100.0100 ####[facility] [address] [place], [address] CO2 Normal 21.0-32.0 [facility] Comment on above: Result Comment: Canc elled via OM: Order cancelled - Patient discharged Performed By: #### L 500.2500, L100.0100 ####[facility] [address] [place], [address] CREAT,SERUM Normal 0.55-1.02 [facility] Comment on above: Result Comment: Canc elled via OM: Order cancelled - Patient discharged Performed By: #### L 500.2500, L100.0100 ####[facility] [address] [place], [address] EST GFR Normal >60 [facility] Comment on above: Result Comment: Canc elled via OM: Order cancelled - Patient discharged Performed By: #### L 500.2500, L100.0100 ####[facility] [address] [place], [address] EST GFR - AA Normal >60 [facility] Comment on above: Result Comment: Canc elled via OM: Order cancelled - Patient discharged Performed By: #### L 500.2500, L100.0100 ####[facility] [address] [place], [address] GAP Normal 5-15 [facility] Comment on above: Result Comment: Canc elled via OM: Order cancelled - Patient discharged Performed By: #### L 500.2500, L100.0100 ####[facility] [address] [place], [address] GLU Normal 74-106 [facility] Comment on above: Result Comment: Canc elled via OM: Order cancelled - Patient discharged Performed By: #### L 500.2500, L100.0100 ####[facility] [address] [place], [address] Potassium Normal 3.5-5.1 [facility] Comment on above: Result Comment: Canc elled via OM: Order cancelled - Patient discharged Performed By: #### L 500.2500, L100.0100 ####[facility] [address] [place], [address] Basic Metabolic Profile (BMP) Normal 136-145 [facility] Comment on above: Result Comment: Canc elled via OM: Order cancelled - Patient discharged Performed By: #### L 500.2500, L100.0100 ####[facility] [address] [place], [address] Bedside Glucoseon 09-05-2024 FINGERSTICK GLU 209 mg/dL High 74-106 [facility] Comment on above: Result Comment: OLGA GEMENT OF PATIENT CARE PER NURSING PROTOCOL Performed By: #### L 501.080 ####[facility] [address] [place], [address] FINGERSTICK GLU 265 mg/dL High 74-106 [facility] Comment on above: Result Comment: OLGA GEMENT OF PATIENT CARE PER NURSING PROTOCOL Performed By: #### L 501.080 ####[facility] [address] [place], [address] FINGERSTICK GLU 203 mg/dL High 74-106 [facility] Comment on above: Result Comment: OLGA GEMENT OF PATIENT CARE PER NURSING PROTOCOL Performed By: #### L 501.080 ####[facility] [address] [place], [address] FINGERSTICK GLU 215 mg/dL High 74-106 [facility] Comment on above: Result Comment: OLGA GEMENT OF PATIENT CARE PER NURSING PROTOCOL Performed By: #### L 501.080 ####[facility] [address] [place], [address] FINGERSTICK GLU 224 mg/dL High 74-106 [facility] Comment on above: Result Comment: OLGA GEMENT OF PATIENT CARE PER NURSING PROTOCOL Performed By: #### L 501.080 ####[facility] [address] [place], [address] CBC W/Diff, Automatedon 01-2 Absolute Neut Normal 2.0-7.7 [facility] Comment on above: Result Comment: Canc elled via OM: Order cancelled - Patient discharged Performed By: #### L 500.2500, L100.0100 ####[facility] [address] [place], [address] HCT Normal 37-47 [facility] Comment on above: Result Comment: Canc elled via OM: Order cancelled - Patient discharged Performed By: #### L 500.2500, L100.0100 ####[facility] [address] [place], [address] HGB Normal 12.0-15.0 [facility] Comment on above: Result Comment: Canc elled via OM: Order cancelled - Patient discharged Performed By: #### L 500.2500, L100.0100 ####[facility] [address] [place], [address] MCH Normal 27.0-32.0 [facility] Comment on above: Result Comment: Canc elled via OM: Order cancelled - Patient discharged Performed By: #### L 500.2500, L100.0100 ####[facility] [address] [place], [address] MCHC Normal 32-36 [facility] Comment on above: Result Comment: Canc elled via OM: Order cancelled - Patient discharged Performed By: #### L 500.2500, L100.0100 ####[facility] [address] [place], [address] MCV Normal 81-99 [facility] Comment on above: Result Comment: Canc elled via OM: Order cancelled - Patient discharged Performed By: #### L 500.2500, L100.0100 ####[facility] [address] [place], [address] NEUT% Normal 47-70 [facility] Comment on above: Result Comment: Canc elled via OM: Order cancelled - Patient discharged Performed By: #### L 500.2500, L100.0100 ####[facility] [address] [place], [address] PLT Normal 150-450 [facility] Comment on above: Result Comment: Canc elled via OM: Order cancelled - Patient discharged Performed By: #### L 500.2500, L100.0100 ####[facility] [address] [place], [address] RBC Normal 4.2-5.4 [facility] Comment on above: Result Comment: Canc elled via OM: Order cancelled - Patient discharged Performed By: #### L 500.2500, L100.0100 ####[facility] [address] [place], [address] RDW CV Normal 11.6-14.6 [facility] Comment on above: Result Comment: Canc elled via OM: Order cancelled - Patient discharged Performed By: #### L 500.2500, L100.0100 ####[facility] [address] [place], [address] RDW SD Normal 35.1-43.9 [facility] Comment on above: Result Comment: Canc elled via OM: Order cancelled - Patient discharged Performed By: #### L 500.2500, L100.0100 ####[facility] [address] [place], [address] WBC Normal 4.4-11.0 [facility] Comment on above: Result Comment: Canc elled via OM: Order cancelled - Patient discharged Performed By: #### L 500.2500, L100.0100 ####[facility] [address] [place], [address] Bedside Glucoseon 09-04-2024 FINGERSTICK GLU 233 mg/dL High [address] [place] [address] Comment on above: Result Comment: OLGA GEMENT OF PATIENT CARE PER NURSING PROTOCOL Performed By: #### L 501.080 ####[facility] [address] [place], [address] FINGERSTICK GLU 366 mg/dL High [address] [place] [address] Comment on above: Result Comment: OLGA GEMENT OF PATIENT CARE PER NURSING PROTOCOL Performed By: #### L 501.080 ####[facility] [address] [facility] [address] FINGERSTICK GLU 302 mg/dL High [address] [place] [address] Comment on above: Result Comment: OLGA GEMENT OF PATIENT CARE PER NURSING PROTOCOL Performed By: #### L 501.080 ####[facility] [address] [facility] [address] FINGERSTICK GLU 344 mg/dL High [address] [place] [address] Comment on above: Result Comment: OLGA GEMENT OF PATIENT CARE PER NURSING PROTOCOL Performed By: #### L 501.080 ####[facility] [address] [place], [address] FINGERSTICK GLU 312 mg/dL High [address] [place] [address] Comment on above: Result Comment: OLGA GEMENT OF PATIENT CARE PER NURSING PROTOCOL Performed By: #### L 501.080 ####[facility] [address] [place], [address] Bedside Glucoseon 09-03-2024 FINGERSTICK GLU 277 mg/dL High [address] [place] [address] Comment on above: Result Comment: OLGA GEMENT OF PATIENT CARE PER NURSING PROTOCOL Performed By: #### L 501.080 ####[facility] [address] [place], [address] FINGERSTICK GLU 283 mg/dL High [address] [place] [address] Comment on above: Result Comment: OLGA GEMENT OF PATIENT CARE PER NURSING PROTOCOL Performed By: #### L 501.080 ####[facility] [address] [place], [address] FINGERSTICK GLU 251 mg/dL High 74-106 [facility] Comment on above: Result Comment: OLGA GEMENT OF PATIENT CARE PER NURSING PROTOCOL Performed By: #### L 501.080 ####[facility] [address] [place], [address] FINGERSTICK GLU 234 mg/dL High 74-106 [facility] Comment on above: Result Comment: OLGA GEMENT OF PATIENT CARE PER NURSING PROTOCOL Performed By: #### L 501.080 ####[facility] [address] [place], [address] FINGERSTICK GLU 263 mg/dL High 74-106 [facility] Comment on above: Result Comment: OLGA GEMENT OF PATIENT CARE PER NURSING PROTOCOL Performed By: #### L 501.080 ####[facility] [address] [place], [address] Basic Metabolic Profile (BMP )on 09-02-2024 BUN/CRE 14.7 RATIO Normal 10-20 [facility] Comment on above: Performed By: #### L 100.0600, L500.2500 ####[facility] [address] [place], [address] CA,Total 9.3 mg/dL Normal 8.5-10.1 [facility] Comment on above: Performed By: #### L 100.0600, L500.2500 ####[facility] [address] [place], [address] Chloride [Moles/Vol] 105 mmol/L Normal 98-107 [facility] Comment on above: Performed By: #### L 100.0600, L500.2500 ####[facility] [address] [place], [address] CO2 [Moles/Vol] 24.0 mmol/L Normal 21.0-32.0 [facility] Comment on above: Performed By: #### L 100.0600, L500.2500 ####[facility] [address] [place], [address] Creatinine [Mass/Vol] 0.75 mg/dL Normal 0.55-1.02 [facility] Comment on above: Result Comment: The validity of the calculated GFR GFRAA in patients over70 years has not been determined. Clinical correlation isessential. Performed By: #### L 100.0600, L500.2500 ####[facility] [address] [place], [address] ECRCL 49.35 ml/min Normal [facility] Comment on above: Performed By: #### L 100.0600, L500.2500 ####[facility] [address] [place], [address] EST GFR - AA 96 mL/min Normal >60 [facility] Comment on above: Result Comment: Afri can Pakistani GFR Calc Performed By: #### L 100.0600, L500.2500 ####[facility] [address] [place], [address] GAP 8 Normal 5-15 [facility] Comment on above: Performed By: #### L 100.0600, L500.2500 ####[facility] [address] [place], [address] GFR/1.73 sq M.predicted among non-blacks MDRD (S/P/Bld) [Vol rate/Area] 79 mL/min/{1.73_m2} Normal >60 [facility] Comment on above: Result Comment: Non- GFR Calc Performed By: #### L 100.0600, L500.2500 ####[facility] [address] [place], [address] Glucose [Mass/Vol] 380 mg/dL High 74-106 [facility] Comment on above: Result Comment: Gluc ose result greater than or equal to 200 mg/dLsuggests DIABETES MELLITUS per A.D.A. criteria. Performed By: #### L 100.0600, L500.2500 ####[facility] [address] [place], [address] Potassium [Moles/Vol] 3.9 mmol/L Normal 3.5-5.1 [facility] Comment on above: Performed By: #### L 100.0600, L500.2500 ####[facility] [address] [place], [address] Sodium [Moles/Vol] 137 mmol/L Normal 136-145 [facility] Comment on above: Performed By: #### L 100.0600, L500.2500 ####[facility] [address] [place], [address] Urea nitrogen [Mass/Vol] 11 mg/dL Normal 7-18 [facility] Comment on above: Performed By: #### L 100.0600, L500.2500 ####[facility] [address] [place], [address] Bedside Glucoseon 09-02-2024 FINGERSTICK GLU 261 mg/dL High [address] [place] [address] Comment on above: Result Comment: OLGA GEMENT OF PATIENT CARE PER NURSING PROTOCOL Performed By: #### L 501.080 ####[facility] [address] [place], [address] FINGERSTICK GLU 320 mg/dL High [address] [place] [address] Comment on above: Result Comment: OLGA GEMENT OF PATIENT CARE PER NURSING PROTOCOL Performed By: #### L 501.080 ####[facility] [address] [place], [address] FINGERSTICK GLU 338 mg/dL High [facility]106 [facility] Comment on above: Result Comment: OLGA GEMENT OF PATIENT CARE PER NURSING PROTOCOL Performed By: #### L 501.080 ####[facility] [address] [place], [address] FINGERSTICK GLU 368 mg/dL High 74-106 [facility] Comment on above: Result Comment: OLGA GEMENT OF PATIENT CARE PER NURSING PROTOCOL Performed By: #### L 501.080 ####[facility] [address] [place], [address] FINGERSTICK GLU 287 mg/dL High 74-106 [facility] Comment on above: Result Comment: OLGA GEMENT OF PATIENT CARE PER NURSING PROTOCOL Performed By: #### L 501.080 ####[facility] [address] [place], [address] HH, Hemoglobin AND Hematocri ton 09-02-2024 Hematocrit (Bld) [Volume fraction] 36.7 % Low 37-47 [facility] Comment on above: Performed By: #### L 100.0600, L500.2500 ####[facility] [address] [place], [address] Hemoglobin (Bld) [Mass/Vol] 12.7 g/dL Normal 12.0-15.0 [facility] Comment on above: Performed By: #### L 100.0600, L500.2500 ####[facility] [address] [place], [address] Urine Cultureon 09-02-2024 URC Yeast, not Shanna a lbicans [place] Count 25,000-50,000 Normal [facility] Comment on above: Performed By: #### M 100.2200 ####[facility] [address] [place], [address] Bedside Glucoseon 09-01-2024 FINGERSTICK GLU 301 mg/dL High 74-106 [facility] Comment on above: Result Comment: OLGA GEMENT OF PATIENT CARE PER NURSING PROTOCOL Performed By: #### L 501.080 ####[facility] [address] [place], [address] FINGERSTICK GLU 349 mg/dL High [facility]106 [facility] Comment on above: Result Comment: OLGA GEMENT OF PATIENT CARE PER NURSING PROTOCOL Performed By: #### L 501.080 ####[facility] [address] [place], [address] FINGERSTICK GLU 240 mg/dL High [facility]106 [facility] Comment on above: Result Comment: OLGA GEMENT OF PATIENT CARE PER NURSING PROTOCOL Performed By: #### L 501.080 ####[facility] [address] [place], [address] FINGERSTICK GLU 333 mg/dL High [address] [place] [address] Comment on above: Result Comment: OLGA GEMENT OF PATIENT CARE PER NURSING PROTOCOL Performed By: #### L 501.080 ####[facility] [address] [place], [address] FINGERSTICK GLU 222 mg/dL High [facility]106 [facility] Comment on above: Result Comment: OLGA GEMENT OF PATIENT CARE PER NURSING PROTOCOL Performed By: #### L 501.080 ####[facility] [address] [place], [address] FINGERSTICK GLU 268 mg/dL High [address] [place] [address] Comment on above: Result Comment: OLGA GEMENT OF PATIENT CARE PER NURSING PROTOCOL Performed By: #### L 501.080 ####[facility] [address] [place], [address] Blood Gases by [facility] 025 Base excess Calc (Bld) [Moles/Vol] -3 mmol/L Low -2 to +2 [facility] Comment on above: Performed By: #### L 9000.0800 ####[facility] [address] [place], [address] Blood Gas Type ART Normal [facility] Comment on above: Performed By: #### L 9000.0800 ####[facility] [address] [place], [address] CO2 [Moles/Vol] 23 mmol/L Normal [facility] Comment on above: Performed By: #### L 9000.0800 ####[facility] [address] [place], [address] FI02 21.0 Normal [facility] Comment on above: Performed By: #### L 9000.0800 ####[facility] [address] [place], [address] HCO3 (Bld) [Moles/Vol] 21.7 mmol/L Low 22-26 [facility] Comment on above: Performed By: #### L 9000.0800 ####[facility] [address] [place], [address] Mode Not entered [facility] Comment on above: Performed By: #### L 9000.0800 ####[facility] [address] [place], [address] O2 Delivery Dev Not entered [facility] Comment on above: Performed By: #### L 9000.0800 ####[facility] [address] [place], [address] pCO2 35.5 mmHg Normal 35-45 [facility] Comment on above: Performed By: #### L 9000.0800 ####[facility] [address] [place], [address] pH (Bld) 7.39 [pH] Normal 7.35-7.45 [facility] Comment on above: Performed By: #### L 9000.0800 ####[facility] [address] [place], [address] PO2 69 mmHG Low 75-100 [facility] Comment on above: Performed By: #### L 9000.0800 ####[facility] [address] [place], [address] SITE L Brach Normal [facility] Comment on above: Performed By: #### L 9000.0800 ####[facility] [address] [place], [address] SO2 94 Low 95-99 [facility] Comment on above: Performed By: #### L 9000.0800 ####[facility] [address] [place], [address] Bedside Glucoseon 08-31-2024 FINGERSTICK GLU 222 mg/dL High 74-106 [facility] Comment on above: Result Comment: OLGA GEMENT OF PATIENT CARE PER NURSING PROTOCOL Performed By: #### L 501.080 ####[facility] [address] [place], [address] FINGERSTICK GLU 335 mg/dL High 74-106 [facility] Comment on above: Result Comment: OLGA GEMENT OF PATIENT CARE PER NURSING PROTOCOL Performed By: #### L 501.080 ####[facility] [address] [place], [address] FINGERSTICK GLU 284 mg/dL High 74-106 [facility] Comment on above: Result Comment: OLGA GEMENT OF PATIENT CARE PER NURSING PROTOCOL Performed By: #### L 501.080 ####[facility] [address] [place], [address] Bedside Glucoseon 5 FINGERSTICK GLU 232 mg/dL High 74-106 [facility] Comment on above: Result Comment: OLGA GEMENT OF PATIENT CARE PER NURSING PROTOCOL Performed By: #### L 501.080 ####[facility] [address] [place], [address] FINGERSTICK GLU 289 mg/dL High 74-106 [facility] Comment on above: Result Comment: OLGA GEMENT OF PATIENT CARE PER NURSING PROTOCOL Performed By: #### L 501.080 ####[facility] [address] [place], [address] FINGERSTICK GLU 251 mg/dL High 74-106 [facility] Comment on above: Result Comment: OLGA GEMENT OF PATIENT CARE PER NURSING PROTOCOL Performed By: #### L 501.080 ####[facility] [address] [place], [address] FINGERSTICK GLU 335 mg/dL High -106 [facility] Comment on above: Result Comment: OLGA GEMENT OF PATIENT CARE PER NURSING PROTOCOL Performed By: #### L 501.080 ####[facility] [address] [place], [address] FINGERSTICK GLU 310 mg/dL High -[address] [place] [address] Comment on above: Result Comment: OLGA GEMENT OF PATIENT CARE PER NURSING PROTOCOL Performed By: #### L 501.080 ####[facility] [address] [place], [address] CBC W/Diff, Automatedon 08-13 Absolute Lymph 1.02 X10 3/uL Normal 0.83-4.51 [facility] Comment on above: Performed By: #### L 501.2300, L500.4050, L501.5200, L506.0400, L100.0100 ####[facility] [address] [place], [address] Absolute Neut 5.0 X10 3/uL Normal 2.0-7.7 [facility] Comment on above: Performed By: #### L 501.2300, L500.4050, L501.5200, L506.0400, L100.0100 ####[facility] [address] [place], [address] Basophils/100 WBC (Bld) 0.7 % Normal 0-1 [facility] Comment on above: Performed By: #### L 501.2300, L500.4050, L501.5200, L506.0400, L100.0100 ####[facility] [address] [place], [address] Eosinophils/100 WBC (Bld) 4.5 % Normal 0-5 [facility] Comment on above: Performed By: #### L 501.2300, L500.4050, L501.5200, L506.0400, L100.0100 ####[facility] [address] [place], [address] Erythrocyte distribution width (RBC) [Ratio] 13.4 % Normal 11.6-14.6 [facility] Comment on above: Performed By: #### L 501.2300, L500.4050, L501.5200, L506.0400, L100.0100 ####[facility] [address] [place], [address] Hematocrit (Bld) [Volume fraction] 32.3 % Low 37-47 [facility] Comment on above: Performed By: #### L 501.2300, L500.4050, L501.5200, L506.0400, L100.0100 ####[facility] [address] [place], [address] Hemoglobin (Bld) [Mass/Vol] 10.6 g/dL Low 12.0-15.0 [facility] Comment on above: Performed By: #### L 501.2300, L500.4050, L501.5200, L506.0400, L100.0100 ####[facility] [address] [place], [address] IG% 0.700 Normal 0.0-0.9 [facility] Comment on above: Result Comment: IG% - Immature Granulocytes (promyelocytes, myelocytes andmetamyelocytes) > 1% indicates that a LEFT SHIFT is Present. Performed By: #### L 501.2300, L500.4050, L501.5200, L506.0400, L100.0100 ####[facility] [address] [place], [address] Lymphocytes/100 WBC (Bld) 13.9 % Low 19-41 [facility] Comment on above: Performed By: #### L 501.2300, L500.4050, L501.5200, L506.0400, L100.0100 ####[facility] [address] [place], [address] MCH (RBC) [Entitic mass] 31.4 pg Normal 27.0-32.0 [facility] Comment on above: Performed By: #### L 501.2300, L500.4050, L501.5200, L506.0400, L100.0100 ####[facility] [address] [place], [address] MCHC (RBC) [Mass/Vol] 32.8 g/dL Normal 32-36 [facility] Comment on above: Performed By: #### L 501.2300, L500.4050, L501.5200, L506.0400, L100.0100 ####[facility] [address] [place], [address] MCV (RBC) [Entitic vol] 95.6 fL Normal 81-99 [facility] Comment on above: Performed By: #### L 501.2300, L500.4050, L501.5200, L506.0400, L100.0100 ####[facility] [address] [place], [address] Monocytes/100 WBC (Bld) 12.2 % High 0-10 [facility] Comment on above: Performed By: #### L 501.2300, L500.4050, L501.5200, L506.0400, L100.0100 ####[facility] [address] [place], [address] Neutrophils/100 WBC (Bld) 68.0 % Normal 47-70 [facility] Comment on above: Performed By: #### L 501.2300, L500.4050, L501.5200, L506.0400, L100.0100 ####[facility] [address] [place], [address] Nucleated RBC (Bld) [#/Vol] 0 10*3/uL Normal 0-5 [facility] Comment on above: Performed By: #### L 501.2300, L500.4050, L501.5200, L506.0400, L100.0100 ####[facility] [address] [place], [address] Platelet mean volume (Bld) [Entitic vol] 9.8 fL Normal 6.2-12.0 [facility] Comment on above: Performed By: #### L 501.2300, L500.4050, L501.5200, L506.0400, L100.0100 ####[facility] [address] [place], [address] Platelets (Bld) [#/Vol] 258 10*3/uL Normal 150-450 [facility] Comment on above: Performed By: #### L 501.2300, L500.4050, L501.5200, L506.0400, L100.0100 ####[facility] [address] [place], [address] RBC (Bld) [#/Vol] 3.38 10*6/uL Low 4.2-5.4 [facility] Comment on above: Performed By: #### L 501.2300, L500.4050, L501.5200, L506.0400, L100.0100 ####[facility] [address] [place], [address] RDW SD 46.3 fl High 35.1-43.9 [facility] Comment on above: Performed By: #### L 501.2300, L500.4050, L501.5200, L506.0400, L100.0100 ####[facility] [address] [place], [address] WBC (Bld) [#/Vol] 7.3 10*3/uL Normal 4.4-11.0 [facility] Comment on above: Performed By: #### L 501.2300, L500.4050, L501.5200, L506.0400, L100.0100 ####[facility] [address] [place], [address] Comprehensive Metabolic Prof [facility] 08-30-2024 Albumin [Mass/Vol] 2.7 g/dL Low 3.2-5.0 [facility] Comment on above: Performed By: #### L 501.2300, L500.4050, L501.5200, L506.0400, L100.0100 ####[facility] [address] [place], [address] Albumin/Globulin [Mass ratio] 0.8 {ratio} Low 0.9-2.4 [facility] Comment on above: Performed By: #### L 501.2300, L500.4050, L501.5200, L506.0400, L100.0100 ####[facility] [address] [place], [address] ALK P 77 U/L Normal 45-117 [facility] Comment on above: Performed By: #### L 501.2300, L500.4050, L501.5200, L506.0400, L100.0100 ####[facility] [address] [place], [address] ALT [Catalytic activity/Vol] 18 U/L Normal 13-56 [facility] Comment on above: Performed By: #### L 501.2300, L500.4050, L501.5200, L506.0400, L100.0100 ####[facility] [address] [place], [address] AST [Catalytic activity/Vol] 12 U/L Low 15-37 [facility] Comment on above: Performed By: #### L 501.2300, L500.4050, L501.5200, L506.0400, L100.0100 ####[facility] [address] [place], [address] Bilirubin [Mass/Vol] 0.40 mg/dL Normal 0.20-1.00 [facility] Comment on above: Result Comment: For patients on eltrombopag therapy, use of Dimension [place] TBIL is not recommended. Performed By: #### L 501.2300, L500.4050, L501.5200, L506.0400, L100.0100 ####[facility] [address] [place], [address] BUN/CRE 31.3 RATIO High 10-20 [facility] Comment on above: Performed By: #### L 501.2300, L500.4050, L501.5200, L506.0400, L100.0100 ####[facility] [address] [place], [address] CA,Total 8.4 mg/dL Low 8.5-10.1 [facility] Comment on above: Performed By: #### L 501.2300, L500.4050, L501.5200, L506.0400, L100.0100 ####[facility] [address] [place], [address] Chloride [Moles/Vol] 110 mmol/L High 98-107 [facility] Comment on above: Performed By: #### L 501.2300, L500.4050, L501.5200, L506.0400, L100.0100 ####[facility] [address] [place], [address] CO2 [Moles/Vol] 19.0 mmol/L Low 21.0-32.0 [facility] Comment on above: Performed By: #### L 501.2300, L500.4050, L501.5200, L506.0400, L100.0100 ####[facility] [address] [place], [address] Creatinine [Mass/Vol] 0.67 mg/dL Normal 0.55-1.02 [facility] Comment on above: Result Comment: The validity of the calculated GFR GFRAA in patients over70 years has not been determined. Clinical correlation isessential. Performed By: #### L 501.2300, L500.4050, L501.5200, L506.0400, L100.0100 ####[facility] [address] [place], [address] ECRCL 49.33 ml/min Normal [facility] Comment on above: Performed By: #### L 501.2300, L500.4050, L501.5200, L506.0400, L100.0100 ####[facility] [address] [place], [address] EST GFR - AA 108 mL/min Normal >60 [facility] Comment on above: Result Comment: Afri can Pakistani GFR Calc Performed By: #### L 501.2300, L500.4050, L501.5200, L506.0400, L100.0100 ####[facility] [address] [place], [address] GAP 8 Normal 5-15 [facility] Comment on above: Performed By: #### L 501.2300, L500.4050, L501.5200, L506.0400, L100.0100 ####[facility] [address] [place], [address] GFR/1.73 sq M.predicted among non-blacks MDRD (S/P/Bld) [Vol rate/Area] 90 mL/min/{1.73_m2} Normal >60 [facility] Comment on above: Result Comment: Non- GFR Calc Performed By: #### L 501.2300, L500.4050, L501.5200, L506.0400, L100.0100 ####[facility] [address] [place], [address] Globulin (S) [Mass/Vol] 3.5 g/dL Normal 2.2-4.2 [facility] Comment on above: Performed By: #### L 501.2300, L500.4050, L501.5200, L506.0400, L100.0100 ####[facility] [address] [place], [address] Glucose [Mass/Vol] 291 mg/dL High 74-106 [facility] Comment on above: Result Comment: Gluc ose result greater than or equal to 200 mg/dLsuggests DIABETES MELLITUS per A.D.A. criteria. Performed By: #### L 501.2300, L500.4050, L501.5200, L506.0400, L100.0100 ####[facility] [address] [place], [address] Potassium [Moles/Vol] 3.6 mmol/L Normal 3.5-5.1 [facility] Comment on above: Performed By: #### L 501.2300, L500.4050, L501.5200, L506.0400, L100.0100 ####[facility] [address] [place], [address] Sodium [Moles/Vol] 137 mmol/L Normal 136-145 [facility] Comment on above: Performed By: #### L 501.2300, L500.4050, L501.5200, L506.0400, L100.0100 ####[facility] [address] [place], [address] T PROT 6.2 g/dL Low 6.4-8.2 [facility] Comment on above: Performed By: #### L 501.2300, L500.4050, L501.5200, L506.0400, L100.0100 ####[facility] [address] [place], [address] Urea nitrogen [Mass/Vol] 21 mg/dL High 7-18 [facility] Comment on above: Performed By: #### L 501.2300, L500.4050, L501.5200, L506.0400, L100.0100 ####[facility] [address] [place], [address] Magnesiumon 08-30-2024 Magnesium [Mass/Vol] 2.1 mg/dL Normal 1.6-2.6 [facility] Comment on above: Performed By: #### L 501.2300, L500.4050, L501.5200, L506.0400, L100.0100 ####[facility] [address] [place], [address] Phosphoruson 08-30-2024 Phosphate [Mass/Vol] 2.4 mg/dL Low 2.5-4.9 [facility] Comment on above: Performed By: #### L 501.2300, L500.4050, L501.5200, L506.0400, L100.0100 ####[facility] [address] [place], [address] T4 Free Directon 08-30-2024 T4 FREE DIRECT 1.08 ng/dL Normal 0.76-1.46 [facility] Comment on above: Performed By: #### L 501.2300, L500.4050, L501.5200, L506.0400, L100.0100 ####[facility] [address] [place], [address] Acetone Serumon 08-29-2024 ACETONE SERUM SMALL Abnormal NEG [facility] Comment on above: Result Comment: RESU LTS CALLED TO CORINE LAMAS RN 08/29/24 1740 Julio CésarahWolwest.REPORT READ BACK BY . SAME Performed By: #### L 500.2500, L501.6900 ####[facility] [address] [place], [address] Basic Metabolic Profile (BMP )on 08-29-2024 BUN/CRE 29.9 RATIO High 10-20 [facility] Comment on above: Performed By: #### L 500.2500, L501.6900 ####[facility] [address] [place], [address] CA,Total 9.8 mg/dL Normal 8.5-10.1 [facility] Comment on above: Performed By: #### L 500.2500, L501.6900 ####[facility] [address] [place], [address] Chloride [Moles/Vol] 105 mmol/L Normal 98-107 [facility] Comment on above: Performed By: #### L 500.2500, L501.6900 ####[facility] [address] [place], [address] CO2 [Moles/Vol] 20.0 mmol/L Low 21.0-32.0 [facility] Comment on above: Performed By: #### L 500.2500, L501.6900 ####[facility] [address] [place], [address] Creatinine [Mass/Vol] 0.77 mg/dL Normal 0.55-1.02 [facility] Comment on above: Result Comment: The validity of the calculated GFR GFRAA in patients over70 years has not been determined. Clinical correlation isessential. Performed By: #### L 500.2500, L501.6900 ####[facility] [address] [place], [address] ECRCL 49.33 ml/min Normal [facility] Comment on above: Performed By: #### L 500.2500, L501.6900 ####[facility] [address] [place], [address] EST GFR - AA 93 mL/min Normal >60 [facility] Comment on above: Result Comment: Afri can Pakistani GFR Calc Performed By: #### L 500.2500, L501.6900 ####[facility] [address] [place], [address] GAP 11 Normal 5-15 [facility] Comment on above: Performed By: #### L 500.2500, L501.6900 ####[facility] [address] [place], [address] GFR/1.73 sq M.predicted among non-blacks MDRD (S/P/Bld) [Vol rate/Area] 76 mL/min/{1.73_m2} Normal >60 [facility] Comment on above: Result Comment: Non- GFR Calc Performed By: #### L 500.2500, L501.6900 ####[facility] [address] [place], [address] Glucose [Mass/Vol] 247 mg/dL High 74-106 [facility] Comment on above: Result Comment: Gluc ose result greater than or equal to 200 mg/dLsuggests DIABETES MELLITUS per A.D.A. criteria. Performed By: #### L 500.2500, L501.6900 ####[facility] [address] [place], [address] Potassium [Moles/Vol] 4.1 mmol/L Normal 3.5-5.1 [facility] Comment on above: Performed By: #### L 500.2500, L501.6900 ####[facility] [address] [place], [address] Sodium [Moles/Vol] 136 mmol/L Normal 136-145 [facility] Comment on above: Performed By: #### L 500.2500, L501.6900 ####[facility] [address] [place], [address] Urea nitrogen [Mass/Vol] 23 mg/dL High 7-18 [facility] Comment on above: Performed By: #### L 500.2500, L501.6900 ####[facility] [address] [place], [address] BUN Normal -18 [facility] Comment on above: Result Comment: Canc elled via OM: Order cancelled - Patient discharged Performed By: #### L 500.2500, L100.0100 ####[facility] [address] [place], [address] BUN/CRE Normal 10-20 [facility] Comment on above: Result Comment: Canc elled via OM: Order cancelled - Patient discharged Performed By: #### L 500.2500, L100.0100 ####[facility] [address] [place], [address] CA,Total Normal 8.5-10.1 [facility] Comment on above: Result Comment: Canc elled via OM: Order cancelled - Patient discharged Performed By: #### L 500.2500, L100.0100 ####[facility] [address] [place], [address] CL Normal 98-107 [facility] Comment on above: Result Comment: Canc elled via OM: Order cancelled - Patient discharged Performed By: #### L 500.2500, L100.0100 ####[facility] [address] [place], [address] CO2 Normal 21.0-32.0 [facility] Comment on above: Result Comment: Canc elled via OM: Order cancelled - Patient discharged Performed By: #### L 500.2500, L100.0100 ####[facility] [address] [place], [address] CREAT,SERUM Normal 0.55-1.02 [facility] Comment on above: Result Comment: Canc elled via OM: Order cancelled - Patient discharged Performed By: #### L 500.2500, L100.0100 ####[facility] [address] [place], [address] EST GFR Normal >60 [facility] Comment on above: Result Comment: Canc elled via OM: Order cancelled - Patient discharged Performed By: #### L 500.2500, L100.0100 ####[facility] [address] [place], [address] EST GFR - AA Normal >60 [facility] Comment on above: Result Comment: Canc elled via OM: Order cancelled - Patient discharged Performed By: #### L 500.2500, L100.0100 ####[facility] [address] [place], [address] GAP Normal 5-15 [facility] Comment on above: Result Comment: Canc elled via OM: Order cancelled - Patient discharged Performed By: #### L 500.2500, L100.0100 ####[facility] [address] [place], [address] GLU Normal 74-106 [facility] Comment on above: Result Comment: Canc elled via OM: Order cancelled - Patient discharged Performed By: #### L 500.2500, L100.0100 ####[facility] [address] [place], [address] Potassium Normal 3.5-5.1 [facility] Comment on above: Result Comment: Canc elled via OM: Order cancelled - Patient discharged Performed By: #### L 500.2500, L100.0100 ####[facility] [address] [place], [address] Basic Metabolic Profile (BMP) Normal 136-145 [facility] Comment on above: Result Comment: Canc elled via OM: Order cancelled - Patient discharged Performed By: #### L 500.2500, L100.0100 ####[facility] [address] [place], [address] Bedside Glucoseon 08-29-2024 FINGERSTICK GLU 300 mg/dL High 74-106 [facility] Comment on above: Result Comment: OLGA GEMENT OF PATIENT CARE PER NURSING PROTOCOL Performed By: #### L 501.080 ####[facility] [address] [place], [address] FINGERSTICK GLU 228 mg/dL High 74-106 [facility] Comment on above: Result Comment: OLGA GEMENT OF PATIENT CARE PER NURSING PROTOCOL Performed By: #### L 501.080 ####[facility] [address] [place], [address] FINGERSTICK GLU 224 mg/dL High 74-106 [facility] Comment on above: Result Comment: OLGA GEMENT OF PATIENT CARE PER NURSING PROTOCOL Performed By: #### L 501.080 ####[facility] [address] [place], [address] CBC W/Diff, Automatedon - Absolute Neut Normal 2.0-7.7 [facility] Comment on above: Result Comment: Canc elled via OM: Order cancelled - Patient discharged Performed By: #### L 500.2500, L100.0100 ####[facility] [address] [place], [address] HCT Normal 37-47 [facility] Comment on above: Result Comment: Canc elled via OM: Order cancelled - Patient discharged Performed By: #### L 500.2500, L100.0100 ####[facility] [address] [place], [address] HGB Normal 12.0-15.0 [facility] Comment on above: Result Comment: Canc elled via OM: Order cancelled - Patient discharged Performed By: #### L 500.2500, L100.0100 ####[facility] [address] [place], [address] MCH Normal 27.0-32.0 [facility] Comment on above: Result Comment: Canc elled via OM: Order cancelled - Patient discharged Performed By: #### L 500.2500, L100.0100 ####[facility] [address] [place], [address] MCHC Normal 32-36 [facility] Comment on above: Result Comment: Canc elled via OM: Order cancelled - Patient discharged Performed By: #### L 500.2500, L100.0100 ####[facility] [address] [place], [address] MCV Normal 81-99 [facility] Comment on above: Result Comment: Canc elled via OM: Order cancelled - Patient discharged Performed By: #### L 500.2500, L100.0100 ####[facility] [address] [place], [address] NEUT% Normal 47-70 [facility] Comment on above: Result Comment: Canc elled via OM: Order cancelled - Patient discharged Performed By: #### L 500.2500, L100.0100 ####[facility] [address] [place], [address] PLT Normal 150-450 [facility] Comment on above: Result Comment: Canc elled via OM: Order cancelled - Patient discharged Performed By: #### L 500.2500, L100.0100 ####[facility] [address] [place], [address] RBC Normal 4.2-5.4 [facility] Comment on above: Result Comment: Canc elled via OM: Order cancelled - Patient discharged Performed By: #### L 500.2500, L100.0100 ####[facility] [address] [place], [address] RDW CV Normal 11.6-14.6 [facility] Comment on above: Result Comment: Canc elled via OM: Order cancelled - Patient discharged Performed By: #### L 500.2500, L100.0100 ####[facility] [address] [place], [address] RDW SD Normal 35.1-43.9 [facility] Comment on above: Result Comment: Canc elled via OM: Order cancelled - Patient discharged Performed By: #### L 500.2500, L100.0100 ####[facility] [address] [place], [address] WBC Normal 4.4-11.0 [facility] Comment on above: Result Comment: Canc elled via OM: Order cancelled - Patient discharged Performed By: #### L 500.2500, L100.0100 ####[facility] [address] [place], [address] Urinalysis, Completeon 08-29 BACTERIA RARE Normal None Seen [facility] Comment on above: Order Comment: BLADD ER TAP Performed By: #### L 400.0001 ####[facility] [address] [place], [address] EPI,SQUAMOUS 0-5 SEEN Normal 5-10 [facility] Comment on above: Order Comment: BLADD ER TAP Performed By: #### L 400.0001 ####[facility] [address] [place], [address] RBC 0-5 SEEN Normal 0-5 [facility] Comment on above: Order Comment: BLADD ER TAP Performed By: #### L 400.0001 ####[facility] [address] [place], [address] WBC 5-10 SEEN Normal 0-5 [facility] Comment on above: Order Comment: BLADD ER TAP Performed By: #### L 400.0001 ####[facility] [address] [place], [address] YEAST 2+ /hpf Normal None Seen [facility] Comment on above: Order Comment: BLADD ER TAP Performed By: #### L 400.0001 ####[facility] [address] [place], [address] Mucus Ql (Urine sed) 0 SEEN Normal [facility] Comment on above: Order Comment: BLADD ER TAP Performed By: #### L 400.0001 ####[facility] [address] [place], [address] Basic Metabolic Profile (BMP )on 08-28-2024 BUN/CRE 20.4 RATIO High 10-20 [facility] Comment on above: Performed By: #### L 100.0100, L500.2500, L501.9520 ####[facility] [address] [place], [address] CA,Total 9.2 mg/dL Normal 8.5-10.1 [facility] Comment on above: Performed By: #### L 100.0100, L500.2500, L501.9520 ####[facility] [address] [place], [address] Chloride [Moles/Vol] 107 mmol/L Normal 98-107 [facility] Comment on above: Performed By: #### L 100.0100, L500.2500, L501.9520 ####[facility] [address] [place], [address] CO2 [Moles/Vol] 20.0 mmol/L Low 21.0-32.0 [facility] Comment on above: Performed By: #### L 100.0100, L500.2500, L501.9520 ####[facility] [address] [place], [address] Creatinine [Mass/Vol] 0.64 mg/dL Normal 0.55-1.02 [facility] Comment on above: Result Comment: The validity of the calculated GFR GFRAA in patients over70 years has not been determined. Clinical correlation isessential. Performed By: #### L 100.0100, L500.2500, L501.9520 ####[facility] [address] [place], [address] ECRCL 49.35 ml/min Normal [facility] Comment on above: Performed By: #### L 100.0100, L500.2500, L501.9520 ####[facility] [address] [place], [address] EST GFR - AA 115 mL/min Normal >60 [facility] Comment on above: Result Comment: Afri can Pakistani GFR Calc Performed By: #### L 100.0100, L500.2500, L501.9520 ####[facility] [address] [place], [address] GAP 9 Normal 5-15 [facility] Comment on above: Performed By: #### L 100.0100, L500.2500, L501.9520 ####[facility] [address] [place], [address] GFR/1.73 sq M.predicted among non-blacks MDRD (S/P/Bld) [Vol rate/Area] 95 mL/min/{1.73_m2} Normal >60 [facility] Comment on above: Result Comment: Non- GFR Calc Performed By: #### L 100.0100, L500.2500, L501.9520 ####[facility] [address] [place], [address] Glucose [Mass/Vol] 209 mg/dL High 74-106 [facility] Comment on above: Result Comment: Gluc ose result greater than or equal to 200 mg/dLsuggests DIABETES MELLITUS per A.D.A. criteria. Performed By: #### L 100.0100, L500.2500, L501.9520 ####[facility] [address] [place], [address] Potassium [Moles/Vol] 3.8 mmol/L Normal 3.5-5.1 [facility] Comment on above: Performed By: #### L 100.0100, L500.2500, L501.9520 ####[facility] [address] [place], [address] Sodium [Moles/Vol] 136 mmol/L Normal 136-145 [facility] Comment on above: Performed By: #### L 100.0100, L500.2500, L501.9520 ####[facility] [address] [place], [address] Urea nitrogen [Mass/Vol] 13 mg/dL Normal 7-18 [facility] Comment on above: Performed By: #### L 100.0100, L500.2500, L501.9520 ####[facility] [address] [place], [address] Bedside Glucoseon 08-28-2024 FINGERSTICK GLU 229 mg/dL High 74-106 [facility] Comment on above: Result Comment: OLGA GOMEZ OF PATIENT CARE PER NURSING PROTOCOL Performed By: #### L 501.080 ####[facility] [address] [place], [address] FINGERSTICK GLU 241 mg/dL High 74-106 [facility] Comment on above: Result Comment: OLGA GEMENT OF PATIENT CARE PER NURSING PROTOCOL Performed By: #### L 501.080 ####[facility] [address] [place], [address] FINGERSTICK GLU 216 mg/dL High 74-106 [facility] Comment on above: Result Comment: OLGA GEMENT OF PATIENT CARE PER NURSING PROTOCOL Performed By: #### L 501.080 ####[facility] [address] [place], [address] CBC W/Diff, Automatedon 08-13 Absolute Lymph 1.53 X10 3/uL Normal 0.83-4.51 [facility] Comment on above: Performed By: #### L 100.0100, L500.2500, L501.9520 ####[facility] [address] [place], [address] Absolute Neut 6.4 X10 3/uL Normal 2.0-7.7 [facility] Comment on above: Performed By: #### L 100.0100, L500.2500, L501.9520 ####[facility] [address] [place], [address] Basophils/100 WBC (Bld) 0.5 % Normal 0-1 [facility] Comment on above: Performed By: #### L 100.0100, L500.2500, L501.9520 ####[facility] [address] [place], [address] Eosinophils/100 WBC (Bld) 3.1 % Normal 0-5 [facility] Comment on above: Performed By: #### L 100.0100, L500.2500, L501.9520 ####[facility] [address] [place], [address] Erythrocyte distribution width (RBC) [Ratio] 13.3 % Normal 11.6-14.6 [facility] Comment on above: Performed By: #### L 100.0100, L500.2500, L501.9520 ####[facility] [address] [place], [address] Hematocrit (Bld) [Volume fraction] 36.4 % Low 37-47 [facility] Comment on above: Performed By: #### L 100.0100, L500.2500, L501.9520 ####[facility] [address] [place], [address] Hemoglobin (Bld) [Mass/Vol] 12.4 g/dL Normal 12.0-15.0 [facility] Comment on above: Performed By: #### L 100.0100, L500.2500, L501.9520 ####[facility] [address] [place], [address] IG% 0.300 Normal 0.0-0.9 [facility] Comment on above: Result Comment: IG% - Immature Granulocytes (promyelocytes, myelocytes andmetamyelocytes) > 1% indicates that a LEFT SHIFT is Present. Performed By: #### L 100.0100, L500.2500, L501.9520 ####[facility] [address] [place], [address] Lymphocytes/100 WBC (Bld) 16.2 % Low 19-41 [facility] Comment on above: Performed By: #### L 100.0100, L500.2500, L501.9520 ####[facility] [address] [place], [address] MCH (RBC) [Entitic mass] 32.0 pg Normal 27.0-32.0 [facility] Comment on above: Performed By: #### L 100.0100, L500.2500, L501.9520 ####[facility] [address] [place], [address] MCHC (RBC) [Mass/Vol] 34.1 g/dL Normal 32-36 [facility] Comment on above: Performed By: #### L 100.0100, L500.2500, L501.9520 ####[facility] [address] [place], [address] MCV (RBC) [Entitic vol] 93.8 fL Normal 81-99 [facility] Comment on above: Performed By: #### L 100.0100, L500.2500, L501.9520 ####[facility] [address] [place], [address] Monocytes/100 WBC (Bld) 11.6 % High 0-10 [facility] Comment on above: Performed By: #### L 100.0100, L500.2500, L501.9520 ####[facility] [address] [place], [address] Neutrophils/100 WBC (Bld) 68.3 % Normal 47-70 [facility] Comment on above: Performed By: #### L 100.0100, L500.2500, L501.9520 ####[facility] [address] [place], [address] Nucleated RBC (Bld) [#/Vol] 0 10*3/uL Normal 0-5 [facility] Comment on above: Performed By: #### L 100.0100, L500.2500, L501.9520 ####[facility] [address] [place], [address] Platelet mean volume (Bld) [Entitic vol] 9.7 fL Normal 6.2-12.0 [facility] Comment on above: Performed By: #### L 100.0100, L500.2500, L501.9520 ####[facility] [address] [place], [address] Platelets (Bld) [#/Vol] 283 10*3/uL Normal 150-450 [facility] Comment on above: Performed By: #### L 100.0100, L500.2500, L501.9520 ####[facility] [address] [place], [address] RBC (Bld) [#/Vol] 3.88 10*6/uL Low 4.2-5.4 [facility] Comment on above: Performed By: #### L 100.0100, L500.2500, L501.9520 ####[facility] [address] [place], [address] RDW SD 45.1 fl High 35.1-43.9 [facility] Comment on above: Performed By: #### L 100.0100, L500.2500, L501.9520 ####[facility] [address] [place], [address] WBC (Bld) [#/Vol] 9.4 10*3/uL Normal 4.4-11.0 [facility] Comment on above: Performed By: #### L 100.0100, L500.2500, L501.9520 ####[facility] [address] [place], [address] EGD Reporton 08-28-2024 EGD Report Normal [facility] Hemoglobin A1con 08-28-2024 HbA1c (Bld) [Mass fraction] 7.2 % High 3.8-5.6 [facility] Comment on above: Result Comment: Norm al < 5.7 % Prediabetic 5.7 - 6.4 % Diabetic >or= 6.5 % Please note range changes. Performed By: #### L 501.9985 ####[facility] [address] [place], [address] MR/CON.PCM.NEon 08-28-2024 MR/CON.PCM.NE Normal [facility] MR/PN.GIon 08-28-2024 MR/PN.GI Normal [facility] MR/POSTOP.ANEon 08-28-2024 MR/POSTOP.ANE Normal [facility] MR/ZYMUGXXZ4mb 08-28-2024 MR/POSTOPAN2 Normal [facility] Thyroid Stim Hormone (TSH)on 08-28-2024 TSH 10.600 uIU/mL High 0.358-3.74 0 [facility] Comment on above: Performed By: #### L 100.0100, L500.2500, L501.9520 ####[facility] [address] [place], [address] Urine Cultureon 08-28-2024 URC Normal [facility] Comment on above: Performed By: #### M 100.2200 ####[facility] [address] [place], [address] Bedside Glucoseon 08-27-2024 FINGERSTICK GLU 195 mg/dL High 74-106 [facility] Comment on above: Result Comment: OLGA GEMENT OF PATIENT CARE PER NURSING PROTOCOL Performed By: #### L 501.080 ####[facility] [address] [place], [address] FINGERSTICK GLU 173 mg/dL High 74-106 [facility] Comment on above: Result Comment: OLGA GEMENT OF PATIENT CARE PER NURSING PROTOCOL Performed By: #### L 501.080 ####[facility] [address] [place], [address] FINGERSTICK GLU 249 mg/dL High 74-106 [facility] Comment on above: Result Comment: OLGA GEMENT OF PATIENT CARE PER NURSING PROTOCOL Performed By: #### L 501.080 ####[facility] [address] [place], [address] FINGERSTICK GLU 188 mg/dL High 74-106 [facility] Comment on above: Result Comment: OLGA GEMENT OF PATIENT CARE PER NURSING PROTOCOL Performed By: #### L 501.080 ####[facility] [address] [place], [address] MR/CON.PCM.GIon 08-27-2024 MR/CON.PCM.GI Normal [facility] Modified Barium Swallow Stud yon 08-27-2024 Modified Barium Swallow Study Normal [facility] Bedside Glucoseon 08-26-2024 FINGERSTICK GLU 162 mg/dL High 74-106 [facility] Comment on above: Result Comment: OLGA GEMENT OF PATIENT CARE PER NURSING PROTOCOL Performed By: #### L 501.080 ####[facility] [address] [place], [address] FINGERSTICK GLU 167 mg/dL High 74-106 [facility] Comment on above: Result Comment: OLGA GEMENT OF PATIENT CARE PER NURSING PROTOCOL Performed By: #### L 501.080 ####[facility] [address] [place], [address] FINGERSTICK GLU 214 mg/dL High 74-106 [facility] Comment on above: Result Comment: OLGA GEMENT OF PATIENT CARE PER NURSING PROTOCOL Performed By: #### L 501.080 ####[facility] [address] [place], [address] FINGERSTICK GLU 152 mg/dL High 74-106 [facility] Comment on above: Result Comment: OLGA GEMENT OF PATIENT CARE PER NURSING PROTOCOL Performed By: #### L 501.080 ####[facility] [address] [place], [address] CBC W/Diff, Automatedon 08-13 Absolute Lymph 1.33 X10 3/uL Normal 0.83-4.51 [facility] Comment on above: Performed By: #### L 500.4100, L501.2300, L100.0100, L501.5200, L500.4050 ####[facility] [address] [place], [address] Absolute Neut 7.2 X10 3/uL Normal 2.0-7.7 [facility] Comment on above: Performed By: #### L 500.4100, L501.2300, L100.0100, L501.5200, L500.4050 ####[facility] [address] [place], [address] Basophils/100 WBC (Bld) 0.3 % Normal 0-1 [facility] Comment on above: Performed By: #### L 500.4100, L501.2300, L100.0100, L501.5200, L500.4050 ####[facility] [address] [place], [address] Eosinophils/100 WBC (Bld) 3.2 % Normal 0-5 [facility] Comment on above: Performed By: #### L 500.4100, L501.2300, L100.0100, L501.5200, L500.4050 ####[facility] [address] [place], [address] Erythrocyte distribution width (RBC) [Ratio] 13.1 % Normal 11.6-14.6 [facility] Comment on above: Performed By: #### L 500.4100, L501.2300, L100.0100, L501.5200, L500.4050 ####[facility] [address] [place], [address] Hematocrit (Bld) [Volume fraction] 31.7 % Low 37-47 [facility] Comment on above: Performed By: #### L 500.4100, L501.2300, L100.0100, L501.5200, L500.4050 ####[facility] [address] [place], [address] Hemoglobin (Bld) [Mass/Vol] 10.5 g/dL Low 12.0-15.0 [facility] Comment on above: Performed By: #### L 500.4100, L501.2300, L100.0100, L501.5200, L500.4050 ####[facility] [address] [place], [address] IG% 0.400 Normal 0.0-0.9 [facility] Comment on above: Result Comment: IG% - Immature Granulocytes (promyelocytes, myelocytes andmetamyelocytes) > 1% indicates that a LEFT SHIFT is Present. Performed By: #### L 500.4100, L501.2300, L100.0100, L501.5200, L500.4050 ####[facility] [address] [place], [address] Lymphocytes/100 WBC (Bld) 13.8 % Low 19-41 [facility] Comment on above: Performed By: #### L 500.4100, L501.2300, L100.0100, L501.5200, L500.4050 ####[facility] [address] [place], [address] MCH (RBC) [Entitic mass] 31.3 pg Normal 27.0-32.0 [facility] Comment on above: Performed By: #### L 500.4100, L501.2300, L100.0100, L501.5200, L500.4050 ####[facility] [address] [place], [address] MCHC (RBC) [Mass/Vol] 33.1 g/dL Normal 32-36 [facility] Comment on above: Performed By: #### L 500.4100, L501.2300, L100.0100, L501.5200, L500.4050 ####[facility] [address] [place], [address] MCV (RBC) [Entitic vol] 94.6 fL Normal 81-99 [facility] Comment on above: Performed By: #### L 500.4100, L501.2300, L100.0100, L501.5200, L500.4050 ####[facility] [address] [place], [address] Monocytes/100 WBC (Bld) 8.4 % Normal 0-10 [facility] Comment on above: Performed By: #### L 500.4100, L501.2300, L100.0100, L501.5200, L500.4050 ####[facility] [address] [place], [address] Neutrophils/100 WBC (Bld) 73.9 % High 47-70 [facility] Comment on above: Performed By: #### L 500.4100, L501.2300, L100.0100, L501.5200, L500.4050 ####[facility] [address] [place], [address] Nucleated RBC (Bld) [#/Vol] 0 10*3/uL Normal 0-5 [facility] Comment on above: Performed By: #### L 500.4100, L501.2300, L100.0100, L501.5200, L500.4050 ####[facility] [address] [place], [address] Platelet mean volume (Bld) [Entitic vol] 10.0 fL Normal 6.2-12.0 [facility] Comment on above: Performed By: #### L 500.4100, L501.2300, L100.0100, L501.5200, L500.4050 ####[facility] [address] [place], [address] Platelets (Bld) [#/Vol] 276 10*3/uL Normal 150-450 [facility] Comment on above: Performed By: #### L 500.4100, L501.2300, L100.0100, L501.5200, L500.4050 ####[facility] [address] [place], [address] RBC (Bld) [#/Vol] 3.35 10*6/uL Low 4.2-5.4 [facility] Comment on above: Performed By: #### L 500.4100, L501.2300, L100.0100, L501.5200, L500.4050 ####[facility] [address] [place], [address] RDW SD 44.6 fl High 35.1-43.9 [facility] Comment on above: Performed By: #### L 500.4100, L501.2300, L100.0100, L501.5200, L500.4050 ####[facility] [address] [place], [address] WBC (Bld) [#/Vol] 9.7 10*3/uL Normal 4.4-11.0 [facility] Comment on above: Performed By: #### L 500.4100, L501.2300, L100.0100, L501.5200, L500.4050 ####[facility] [address] [place], [address] Comprehensive Metabolic Prof ilon 08-26-2024 Albumin [Mass/Vol] 3.2 g/dL Normal 3.2-5.0 [facility] Comment on above: Order Comment: Comme nts: NPO at [place] prior to lipid panel Performed By: #### L 500.4100, L501.2300, L100.0100, L501.5200, L500.4050 ####[facility] [address] [place], [address] Albumin/Globulin [Mass ratio] 0.9 {ratio} Normal 0.9-2.4 [facility] Comment on above: Order Comment: Comme nts: NPO at [place] prior to lipid panel Performed By: #### L 500.4100, L501.2300, L100.0100, L501.5200, L500.4050 ####[facility] [address] [place], [address] ALK P 76 U/L Normal 45-117 [facility] Comment on above: Order Comment: Comme nts: NPO at [place] prior to lipid panel Performed By: #### L 500.4100, L501.2300, L100.0100, L501.5200, L500.4050 ####[facility] [address] [place], [address] ALT [Catalytic activity/Vol] 22 U/L Normal 13-56 [facility] Comment on above: Order Comment: Comme nts: NPO at [place] prior to lipid panel Performed By: #### L 500.4100, L501.2300, L100.0100, L501.5200, L500.4050 ####[facility] [address] [place], [address] AST [Catalytic activity/Vol] 20 U/L Normal 15-37 [facility] Comment on above: Order Comment: Comme nts: NPO at [place] prior to lipid panel Performed By: #### L 500.4100, L501.2300, L100.0100, L501.5200, L500.4050 ####[facility] [address] [place], [address] Bilirubin [Mass/Vol] 0.50 mg/dL Normal 0.20-1.00 [facility] Comment on above: Order Comment: Comme nts: NPO at [place] prior to lipid panel Result Comment: For patients on eltrombopag therapy, use of Dimension [place] TBIL is not recommended. Performed By: #### L 500.4100, L501.2300, L100.0100, L501.5200, L500.4050 ####[facility] [address] [place], [address] BUN/CRE 25.9 RATIO High 10-20 [facility] Comment on above: Order Comment: Comme nts: NPO at [place] prior to lipid panel Performed By: #### L 500.4100, L501.2300, L100.0100, L501.5200, L500.4050 ####[facility] [address] [place], [address] CA,Total 8.8 mg/dL Normal 8.5-10.1 [facility] Comment on above: Order Comment: Comme nts: NPO at [place] prior to lipid panel Performed By: #### L 500.4100, L501.2300, L100.0100, L501.5200, L500.4050 ####[facility] [address] [place], [address] Chloride [Moles/Vol] 108 mmol/L High 98-107 [facility] Comment on above: Order Comment: Comme nts: NPO at [place] prior to lipid panel Performed By: #### L 500.4100, L501.2300, L100.0100, L501.5200, L500.4050 ####[facility] [address] [place], [address] CO2 [Moles/Vol] 23.0 mmol/L Normal 21.0-32.0 [facility] Comment on above: Order Comment: Comme nts: NPO at [place] prior to lipid panel Performed By: #### L 500.4100, L501.2300, L100.0100, L501.5200, L500.4050 ####[facility] [address] [place], [address] Creatinine [Mass/Vol] 0.81 mg/dL Normal 0.55-1.02 [facility] Comment on above: Order Comment: Comme nts: NPO at [place] prior to lipid panel Result Comment: The validity of the calculated GFR GFRAA in patients over70 years has not been determined. Clinical correlation isessential. Performed By: #### L 500.4100, L501.2300, L100.0100, L501.5200, L500.4050 ####[facility] [address] [place], [address] ECRCL 48.74 ml/min Normal [facility] Comment on above: Order Comment: Comme nts: NPO at [place] prior to lipid panel Performed By: #### L 500.4100, L501.2300, L100.0100, L501.5200, L500.4050 ####[facility] [address] [place], [address] EST GFR - AA 87 mL/min Normal >60 [facility] Comment on above: Order Comment: Comme nts: NPO at [place] prior to lipid panel Result Comment: Afri can Pakistani GFR Calc Performed By: #### L 500.4100, L501.2300, L100.0100, L501.5200, L500.4050 ####[facility] [address] [place], [address] GAP 7 Normal 5-15 [facility] Comment on above: Order Comment: Comme nts: NPO at [place] prior to lipid panel Performed By: #### L 500.4100, L501.2300, L100.0100, L501.5200, L500.4050 ####[facility] [address] [place], [address] GFR/1.73 sq M.predicted among non-blacks MDRD (S/P/Bld) [Vol rate/Area] 72 mL/min/{1.73_m2} Normal >60 [facility] Comment on above: Order Comment: Comme nts: NPO at [place] prior to lipid panel Result Comment: Non- GFR Calc Performed By: #### L 500.4100, L501.2300, L100.0100, L501.5200, L500.4050 ####[facility] [address] [place], [address] Globulin (S) [Mass/Vol] 3.4 g/dL Normal 2.2-4.2 [facility] Comment on above: Order Comment: Comme nts: NPO at [place] prior to lipid panel Performed By: #### L 500.4100, L501.2300, L100.0100, L501.5200, L500.4050 ####[facility] [address] [place], [address] Glucose [Mass/Vol] 149 mg/dL High 74-106 [facility] Comment on above: Order Comment: Comme nts: NPO at [place] prior to lipid panel Result Comment: Fast ing Glucose result greater than or equal to 126 mg/dLsuggests DIABETES MELLITUS per A.D.A. criteria. Performed By: #### L 500.4100, L501.2300, L100.0100, L501.5200, L500.4050 ####[facility] [address] [place], [address] Potassium [Moles/Vol] 3.9 mmol/L Normal 3.5-5.1 [facility] Comment on above: Order Comment: Comme nts: NPO at [place] prior to lipid panel Performed By: #### L 500.4100, L501.2300, L100.0100, L501.5200, L500.4050 ####[facility] [address] [place], [address] Sodium [Moles/Vol] 137 mmol/L Normal 136-145 [facility] Comment on above: Order Comment: Comme nts: NPO at [place] prior to lipid panel Performed By: #### L 500.4100, L501.2300, L100.0100, L501.5200, L500.4050 ####[facility] [address] [place], [address] T PROT 6.6 g/dL Normal 6.4-8.2 [facility] Comment on above: Order Comment: Comme nts: NPO at [place] prior to lipid panel Performed By: #### L 500.4100, L501.2300, L100.0100, L501.5200, L500.4050 ####[facility] [address] [place], [address] Urea nitrogen [Mass/Vol] 21 mg/dL High 7-18 [facility] Comment on above: Order Comment: Comme nts: NPO at [place] prior to lipid panel Performed By: #### L 500.4100, L501.2300, L100.0100, L501.5200, L500.4050 ####[facility] [address] [place], [address] Echo, Limited Studyon 2024 Echo, Limited Study Normal [facility] Lipid Profileon 08-26-2024 Cholesterol [Mass/Vol] 142 mg/dL Normal 200 [facility] Comment on above: Order Comment: Comme nts: NPO at [place] prior to lipid panel Result Comment: <200 mg/dL Desirable 200-240 mg/dL Borderline >240 mg/dL High Risk Performed By: #### L 500.4100, L501.2300, L100.0100, L501.5200, L500.4050 ####[facility] [address] [place], [address] Cholesterol in HDL [Mass/Vol] 53 mg/dL Normal [facility] Comment on above: Order Comment: Comme nts: NPO at [place] prior to lipid panel Result Comment: The drugs N-Acetylcysteine and Metamizole may falselydepress this assay. Reference Range HDL <40 mg/dL Low HDL Cholesterol HDL >or= 60 mg/dL High HDL Cholesterol Performed By: #### L 500.4100, L501.2300, L100.0100, L501.5200, L500.4050 ####[facility] [address] [place], [address] Cholesterol in LDL [Mass/Vol] 51 mg/dL Normal 0-130 [facility] Comment on above: Order Comment: Comme nts: NPO at [place] prior to lipid panel Performed By: #### L 500.4100, L501.2300, L100.0100, L501.5200, L500.4050 ####[facility] [address] [place], [address] Cholesterol in VLDL [Mass/Vol] 38 mg/dL Normal 5-40 [facility] Comment on above: Order Comment: Comme nts: NPO at [place] prior to lipid panel Performed By: #### L 500.4100, L501.2300, L100.0100, L501.5200, L500.4050 ####[facility] [address] [place], [address] Triglyceride [Mass/Vol] 192 mg/dL Normal [facility] Comment on above: Order Comment: Comme nts: NPO at [place] prior to lipid panel Result Comment: The drugs N-Acetylcysteine and Metamizole may falselydepress this assay.Serum Triglycerides Reference Interval Normal <150 mg/dL Borderline high 150 - 199 mg/dL High 200 - 499 mg/dL Very High > or = 500 mg/dL Performed By: #### L 500.4100, L501.2300, L100.0100, L501.5200, L500.4050 ####[facility] [address] [place], [address] MR/CON.PCM.NEon 08-26-2024 MR/CON.PCM.NE Normal [facility] Magnesiumon 08-26-2024 Magnesium [Mass/Vol] 1.6 mg/dL Normal 1.6-2.6 [facility] Comment on above: Order Comment: Comme nts: NPO at [place] prior to lipid panel Performed By: #### L 500.4100, L501.2300, L100.0100, L501.5200, L500.4050 ####[facility] [address] [place], [address] Phosphoruson 08-26-2024 Phosphate [Mass/Vol] 3.4 mg/dL Normal 2.5-4.9 [facility] Comment on above: Order Comment: Comme nts: NPO at [place] prior to lipid panel Performed By: #### L 500.4100, L501.2300, L100.0100, L501.5200, L500.4050 ####[facility] [address] [place], [address] 12 Lead EKGon 08-25-2024 12 Lead EKG Normal [facility] Basic Metabolic Profile (BMP )on 08-25-2024 BUN/CRE 26.7 RATIO High 10-20 [facility] Comment on above: Order Comment: 'TROP ' Serial specimen #1, #2 or #3: 1 Performed By: #### L 501.4020, L100.0100, L500.2500, L300.3900, L300.4310 ####[facility] [address] [place], [address] CA,Total 9.3 mg/dL Normal 8.5-10.1 [facility] Comment on above: Order Comment: 'TROP ' Serial specimen #1, #2 or #3: 1 Performed By: #### L 501.4020, L100.0100, L500.2500, L300.3900, L300.4310 ####[facility] [address] [place], [address] Chloride [Moles/Vol] 102 mmol/L Normal 98-107 [facility] Comment on above: Order Comment: 'TROP ' Serial specimen #1, #2 or #3: 1 Performed By: #### L 501.4020, L100.0100, L500.2500, L300.3900, L300.4310 ####[facility] [address] [place], [address] CO2 [Moles/Vol] 25.0 mmol/L Normal 21.0-32.0 [facility] Comment on above: Order Comment: 'TROP ' Serial specimen #1, #2 or #3: 1 Performed By: #### L 501.4020, L100.0100, L500.2500, L300.3900, L300.4310 ####[facility] [address] [place], [address] Creatinine [Mass/Vol] 1.16 mg/dL High 0.55-1.02 [facility] Comment on above: Order Comment: 'TROP ' Serial specimen #1, #2 or #3: 1 Result Comment: The validity of the calculated GFR GFRAA in patients over70 years has not been determined. Clinical correlation isessential. Performed By: #### L 501.4020, L100.0100, L500.2500, L300.3900, L300.4310 ####[facility] [address] [place], [place], [address] ECRCL 35.92 ml/min Normal [facility] Comment on above: Order Comment: 'TROP ' Serial specimen #1, #2 or #3: 1 Performed By: #### L 501.4020, L100.0100, L500.2500, L300.3900, L300.4310 ####[facility] [address] [place], [address] EST GFR - AA 58 mL/min Low >60 [facility] Comment on above: Order Comment: 'TROP ' Serial specimen #1, #2 or #3: 1 Result Comment: Afri can Pakistani GFR Calc Performed By: #### L 501.4020, L100.0100, L500.2500, L300.3900, L300.4310 ####[facility] [address] [place], [address] GAP 8 Normal 5-15 [facility] Comment on above: Order Comment: 'TROP ' Serial specimen #1, #2 or #3: 1 Performed By: #### L 501.4020, L100.0100, L500.2500, L300.3900, L300.4310 ####[facility] [address] [place], [address] GFR/1.73 sq M.predicted among non-blacks MDRD (S/P/Bld) [Vol rate/Area] 48 mL/min/{1.73_m2} Low >60 [facility] Comment on above: Order Comment: 'TROP ' Serial specimen #1, #2 or #3: 1 Result Comment: Non- GFR Calc Performed By: #### L 501.4020, L100.0100, L500.2500, L300.3900, L300.4310 ####[facility] [address] [place], [address] Glucose [Mass/Vol] 350 mg/dL High 74-106 [facility] Comment on above: Order Comment: 'TROP ' Serial specimen #1, #2 or #3: 1 Result Comment: Gluc ose result greater than or equal to 200 mg/dLsuggests DIABETES MELLITUS per A.D.A. criteria. Performed By: #### L 501.4020, L100.0100, L500.2500, L300.3900, L300.4310 ####[facility] [address] [place], [address] Potassium [Moles/Vol] 4.7 mmol/L Normal 3.5-5.1 [facility] Comment on above: Order Comment: 'TROP ' Serial specimen #1, #2 or #3: 1 Performed By: #### L 501.4020, L100.0100, L500.2500, L300.3900, L300.4310 ####[facility] [address] [place], [address] Sodium [Moles/Vol] 135 mmol/L Low 136-145 [facility] Comment on above: Order Comment: 'TROP ' Serial specimen #1, #2 or #3: 1 Performed By: #### L 501.4020, L100.0100, L500.2500, L300.3900, L300.4310 ####[facility] [address] [place], [address] Urea nitrogen [Mass/Vol] 31 mg/dL High 7-18 [facility] Comment on above: Order Comment: 'TROP ' Serial specimen #1, #2 or #3: 1 Performed By: #### L 501.4020, L100.0100, L500.2500, L300.3900, L300.4310 ####[facility] [address] [place], [address] Bedside Glucoseon 08-25-2024 FINGERSTICK GLU 140 mg/dL High 74-106 [facility] Comment on above: Result Comment: OLGA GEMENT OF PATIENT CARE PER NURSING PROTOCOL Performed By: #### L 501.080 ####[facility] [address] [place], [address] FINGERSTICK GLU 135 mg/dL High 74-106 [facility] Comment on above: Result Comment: OLGA GEMENT OF PATIENT CARE PER NURSING PROTOCOL Performed By: #### L 501.080 ####[facility] [address] [place], [address] FINGERSTICK GLU 352 mg/dL High 74-106 [facility] Comment on above: Result Comment: OLGA GEMENT OF PATIENT CARE PER NURSING PROTOCOL Performed By: #### L 501.080 ####[facility] [address] [place], [address] FINGERSTICK GLU 209 mg/dL High 74-106 [facility] Comment on above: Result Comment: OLGA GEMENT OF PATIENT CARE PER NURSING PROTOCOL Performed By: #### L 501.080 ####[facility] [address] [place], [address] Brain without Contraston Brain without Contrast Normal [facility] CBC W/Diff, Automatedon 08-13 Absolute Lymph 1.24 X10 3/uL Normal 0.83-4.51 [facility] Comment on above: Performed By: #### L 501.4020, L100.0100, L500.2500, L300.3900, L300.4310 ####[facility] [address] [place], [address] Absolute Neut 8.0 X10 3/uL High 2.0-7.7 [facility] Comment on above: Performed By: #### L 501.4020, L100.0100, L500.2500, L300.3900, L300.4310 ####[facility] [address] [place], [address] Basophils/100 WBC (Bld) 0.5 % Normal 0-1 [facility] Comment on above: Performed By: #### L 501.4020, L100.0100, L500.2500, L300.3900, L300.4310 ####[facility] [address] [place], [address] Eosinophils/100 WBC (Bld) 2.8 % Normal 0-5 [facility] Comment on above: Performed By: #### L 501.4020, L100.0100, L500.2500, L300.3900, L300.4310 ####[facility] [address] [place], [address] Erythrocyte distribution width (RBC) [Ratio] 12.9 % Normal 11.6-14.6 [facility] Comment on above: Performed By: #### L 501.4020, L100.0100, L500.2500, L300.3900, L300.4310 ####[facility] [address] [place], [address] Hematocrit (Bld) [Volume fraction] 33.7 % Low 37-47 [facility] Comment on above: Performed By: #### L 501.4020, L100.0100, L500.2500, L300.3900, L300.4310 ####[facility] [address] [place], [address] Hemoglobin (Bld) [Mass/Vol] 11.5 g/dL Low 12.0-15.0 [facility] Comment on above: Performed By: #### L 501.4020, L100.0100, L500.2500, L300.3900, L300.4310 ####[facility] [address] [place], [address] IG% 0.400 Normal 0.0-0.9 [facility] Comment on above: Result Comment: IG% - Immature Granulocytes (promyelocytes, myelocytes andmetamyelocytes) > 1% indicates that a LEFT SHIFT is Present. Performed By: #### L 501.4020, L100.0100, L500.2500, L300.3900, L300.4310 ####[facility] [address] [place], [address] Lymphocytes/100 WBC (Bld) 11.8 % Low 19-41 [facility] Comment on above: Performed By: #### L 501.4020, L100.0100, L500.2500, L300.3900, L300.4310 ####[facility] [address] [place], [address] MCH (RBC) [Entitic mass] 32.2 pg High 27.0-32.0 [facility] Comment on above: Performed By: #### L 501.4020, L100.0100, L500.2500, L300.3900, L300.4310 ####[facility] [address] [place], [address] MCHC (RBC) [Mass/Vol] 34.1 g/dL Normal 32-36 [facility] Comment on above: Performed By: #### L 501.4020, L100.0100, L500.2500, L300.3900, L300.4310 ####[facility] [address] [place], [address] MCV (RBC) [Entitic vol] 94.4 fL Normal 81-99 [facility] Comment on above: Performed By: #### L 501.4020, L100.0100, L500.2500, L300.3900, L300.4310 ####[facility] [address] [place], [address] Monocytes/100 WBC (Bld) 8.7 % Normal 0-10 [facility] Comment on above: Performed By: #### L 501.4020, L100.0100, L500.2500, L300.3900, L300.4310 ####[facility] [facility] [address] [place], [address] Neutrophils/100 WBC (Bld) 75.8 % High 47-70 [facility] Comment on above: Performed By: #### L 501.4020, L100.0100, L500.2500, L300.3900, L300.4310 ####[facility] [address] [place], [address] Nucleated RBC (Bld) [#/Vol] 0 10*3/uL Normal 0-5 [facility] Comment on above: Performed By: #### L 501.4020, L100.0100, L500.2500, L300.3900, L300.4310 ####[facility] [address] [place], [address] Platelet mean volume (Bld) [Entitic vol] 10.0 fL Normal 6.2-12.0 [facility] Comment on above: Performed By: #### L 501.4020, L100.0100, L500.2500, L300.3900, L300.4310 ####[facility] [address] [place], [address] Platelets (Bld) [#/Vol] 278 10*3/uL Normal 150-450 [facility] Comment on above: Performed By: #### L 501.4020, L100.0100, L500.2500, L300.3900, L300.4310 ####[facility] [address] [place], [address] RBC (Bld) [#/Vol] 3.57 10*6/uL Low 4.2-5.4 [facility] Comment on above: Performed By: #### L 501.4020, L100.0100, L500.2500, L300.3900, L300.4310 ####[facility] [address] [place], [address] RDW SD 44.3 fl High 35.1-43.9 [facility] Comment on above: Performed By: #### L 501.4020, L100.0100, L500.2500, L300.3900, L300.4310 ####[facility] [address] [place], [address] WBC (Bld) [#/Vol] 10.6 10*3/uL Normal 4.4-11.0 [facility] Comment on above: Performed By: #### L 501.4020, L100.0100, L500.2500, L300.3900, L300.4310 ####[facility] [address] [place], [address] Carotid Duplex Ultrasoundon 08-25-2024 Carotid Duplex Ultrasound Normal [facility] Chest 1 Viewon 08-25-2024 Chest 1 View Normal [facility] Emergency Department Summary on 08-25-2024 Emergency Department Summary Normal [facility] H AND P Exam - Hospitaliston 08-25-2024 H&P Exam - Hospitalist Normal [facility] L501.4020on 08-25-2024 TROPONIN-I HS 7 pg/mL Normal 3.0-54.0 [facility] Comment on above: Order Comment: 'TROP ' Serial specimen #1, #2 or #3: 1 Result Comment: Plea se Note: New Test Units and Gender Specific Reference Ranges. For more information see Policy Stat Procedure [place] High Sensitivity Troponin (TNIH) and attachments. Performed By: #### L 501.4020, L100.0100, L500.2500, L300.3900, L300.4310 ####[facility] [address] [place], [address] Partial Thromboplast Timeon 08-25-2024 aPTT Coag (Bld) [Time] 23.0 s Low 24.1-36.2 [facility] Comment on above: Performed By: #### L 501.4020, L100.0100, L500.2500, L300.3900, L300.4310 ####[facility] [address] [place], [address] Prothrombin Time w/INRon INR Coag (PPP) [Relative time] 1.1 {INR} Normal [facility] Comment on above: Performed By: #### L 501.4020, L100.0100, L500.2500, L300.3900, L300.4310 ####[facility] [address] [place], [address] PT Coag (PPP) [Time] 14.1 s Normal 11.7-14.9 [facility] Comment on above: Performed By: #### L 501.4020, L100.0100, L500.2500, L300.3900, L300.4310 ####[facility] [address] [place], [address] STROKE Brain/Head without Co nton 08-25-2024 STROKE Brain/Head without Cont Normal [facility] STROKE CTA Head AND Neck W/C onon 08-25-2024 STROKE CTA Head AND Neck W/Con Normal [facility] Urinalysis, Completeon 08-25 EPI,SQUAMOUS 5-10 SEEN Normal 5-10 [facility] Comment on above: Order Comment: ERICKSON CTOR TO SPECIFY Performed By: #### L 400.0001 ####[facility] [address] [place], [address] RBC 0-5 SEEN Normal 0-5 [facility] Comment on above: Order Comment: ERICKSON CTOR TO SPECIFY Performed By: #### L 400.0001 ####[facility] [address] [place], [address] WBC >100 SEEN Normal 0-5 [facility] Comment on above: Order Comment: ERICKSON CTOR TO SPECIFY Performed By: #### L 400.0001 ####[facility] [address] [place], [address] YEAST 4+ /hpf Normal None Seen [facility] Comment on above: Order Comment: ERICKSON CTOR TO SPECIFY Performed By: #### L 400.0001 ####[facility] [address] [place], [address] BACTERIA 0 SEEN Normal None Seen [facility] Comment on above: Order Comment: ERICKSON CTOR TO SPECIFY Performed By: #### L 400.0001 ####[facility] [address] [place], [address] Mucus Ql (Urine sed) 0 SEEN Normal [facility] Comment on above: Order Comment: ERICKSON CTOR TO SPECIFY Performed By: #### L 400.0001 ####[facility] [address] [place], [address] Bedside Glucoseon 08-24-2024 FINGERSTICK GLU 248 mg/dL High 74-106 [facility] Comment on above: Result Comment: OLGA GOMEZ OF PATIENT CARE PER NURSING PROTOCOL Performed By: #### L 501.080 ####[facility] [address] [place], [address] FINGERSTICK GLU 234 mg/dL High 74-106 [facility] Comment on above: Result Comment: OLGA GEMENT OF PATIENT CARE PER NURSING PROTOCOL Performed By: #### L 501.080 ####[facility] [address] [place], [address] FINGERSTICK GLU 332 mg/dL High [address] [place] [address] Comment on above: Result Comment: OLGA GEMENT OF PATIENT CARE PER NURSING PROTOCOL Performed By: #### L 501.080 ####[facility] [address] [place], [address] FINGERSTICK GLU 185 mg/dL [address] Comment on above: Result Comment: OLGA GEMENT OF PATIENT CARE PER NURSING PROTOCOL Performed By: #### L 501.080 ####[facility] [address] [place], [address] Bedside Glucoseon 08-23-2024 FINGERSTICK GLU 132 mg/dL [address] Comment on above: Result Comment: OLGA GEMENT OF PATIENT CARE PER NURSING PROTOCOL Performed By: #### L 501.080 ####[facility] [address] [place], [address] FINGERSTICK GLU 117 mg/dL [address] Comment on above: Result Comment: OLGA GEMENT OF PATIENT CARE PER NURSING PROTOCOL Performed By: #### L 501.080 ####[facility] [address] [place], [address] FINGERSTICK GLU 225 mg/dL [address] Comment on above: Result Comment: OLGA GEMENT OF PATIENT CARE PER NURSING PROTOCOL Performed By: #### L 501.080 ####[facility] [address] [place], [address] FINGERSTICK GLU 227 mg/dL [address] Comment on above: Result Comment: OLGA GEMENT OF PATIENT CARE PER NURSING PROTOCOL Performed By: #### L 501.080 ####[facility] [address] [place], [address] Basic Metabolic Profile (BMP )on 08-22-2024 BUN/CRE 25.1 RATIO High 10-20 [facility] Comment on above: Performed By: #### L 100.0100, L500.2500 ####[facility] [address] [place], [address] CA,Total 9.1 mg/dL Normal 8.5-10.1 [facility] Comment on above: Performed By: #### L 100.0100, L500.2500 ####[facility] [address] [place], [address] Chloride [Moles/Vol] 105 mmol/L Normal 98-107 [facility] Comment on above: Performed By: #### L 100.0100, L500.2500 ####[facility] [address] [place], [address] CO2 [Moles/Vol] 28.0 mmol/L Normal 21.0-32.0 [facility] Comment on above: Performed By: #### L 100.0100, L500.2500 ####[facility] [address] [place], [address] Creatinine [Mass/Vol] 0.84 mg/dL Normal 0.55-1.02 [facility] Comment on above: Result Comment: The validity of the calculated GFR GFRAA in patients over70 years has not been determined. Clinical correlation isessential. Performed By: #### L 100.0100, L500.2500 ####[facility] [address] [place], [address] ECRCL 47.65 ml/min Normal [facility] Comment on above: Performed By: #### L 100.0100, L500.2500 ####[facility] [address] [place], [address] EST GFR - AA 84 mL/min Normal >60 [facility] Comment on above: Result Comment: Afri can Pakistani GFR Calc Performed By: #### L 100.0100, L500.2500 ####[facility] [address] [place], [address] GAP 5 Normal 5-15 [facility] Comment on above: Performed By: #### L 100.0100, L500.2500 ####[facility] [address] [place], [address] GFR/1.73 sq M.predicted among non-blacks MDRD (S/P/Bld) [Vol rate/Area] 69 mL/min/{1.73_m2} Normal >60 [facility] Comment on above: Result Comment: Non- GFR Calc Performed By: #### L 100.0100, L500.2500 ####[facility] [address] [place], [address] Glucose [Mass/Vol] 181 mg/dL High 74-106 [facility] Comment on above: Result Comment: Fast ing Glucose result greater than or equal to 126 mg/dLsuggests DIABETES MELLITUS per A.D.A. criteria. Performed By: #### L 100.0100, L500.2500 ####[facility] [address] [place], [address] Potassium [Moles/Vol] 4.0 mmol/L Normal 3.5-5.1 [facility] Comment on above: Performed By: #### L 100.0100, L500.2500 ####[facility] [address] [place], [address] Sodium [Moles/Vol] 138 mmol/L Normal 136-145 [facility] Comment on above: Performed By: #### L 100.0100, L500.2500 ####[facility] [address] [place], [address] Urea nitrogen [Mass/Vol] 21 mg/dL High 7-18 [facility] Comment on above: Performed By: #### L 100.0100, L500.2500 ####[facility] [address] [place], [address] Bedside Glucoseon 08-22-2024 FINGERSTICK GLU 141 mg/dL High 74-106 [facility] Comment on above: Result Comment: OLGA GEMENT OF PATIENT CARE PER NURSING PROTOCOL Performed By: #### L 501.080 ####[facility] [address] [place], [address] FINGERSTICK GLU 147 mg/dL High 74-106 [facility] Comment on above: Result Comment: OLGA GEMENT OF PATIENT CARE PER NURSING PROTOCOL Performed By: #### L 501.080 ####[facility] [address] [place], [address] FINGERSTICK GLU 216 mg/dL High 74-106 [facility] Comment on above: Result Comment: OLGA GEMENT OF PATIENT CARE PER NURSING PROTOCOL Performed By: #### L 501.080 ####[facility] [address] [place], [address] FINGERSTICK GLU 163 mg/dL High 74-106 [facility] Comment on above: Result Comment: OLGA GEMENT OF PATIENT CARE PER NURSING PROTOCOL Performed By: #### L 501.080 ####[facility] [address] [place], [address] CBC W/Diff, Automatedon 08-13 0 Absolute Lymph 1.53 X10 3/uL Normal 0.83-4.51 [facility] Comment on above: Performed By: #### L 100.0100, L500.2500 ####[facility] [address] [place], [address] Absolute Neut 3.6 X10 3/uL Normal 2.0-7.7 [facility] Comment on above: Performed By: #### L 100.0100, L500.2500 ####[facility] [address] [place], [address] Basophils/100 WBC (Bld) 0.8 % Normal 0-1 [facility] Comment on above: Performed By: #### L 100.0100, L500.2500 ####[facility] [address] [place], [address] Eosinophils/100 WBC (Bld) 6.1 % High 0-5 [facility] Comment on above: Performed By: #### L 100.0100, L500.2500 ####[facility] [address] [place], [address] Erythrocyte distribution width (RBC) [Ratio] 12.9 % Normal 11.6-14.6 [facility] Comment on above: Performed By: #### L 100.0100, L500.2500 ####[facility] [address] [place], [address] Hematocrit (Bld) [Volume fraction] 35.4 % Low 37-47 [facility] Comment on above: Performed By: #### L 100.0100, L500.2500 ####[facility] [address] [place], [address] Hemoglobin (Bld) [Mass/Vol] 11.8 g/dL Low 12.0-15.0 [facility] Comment on above: Performed By: #### L 100.0100, L500.2500 ####[facility] [address] [place], [address] IG% 0.300 Normal 0.0-0.9 [facility] Comment on above: Result Comment: IG% - Immature Granulocytes (promyelocytes, myelocytes andmetamyelocytes) > 1% indicates that a LEFT SHIFT is Present. Performed By: #### L 100.0100, L500.2500 ####[facility] [address] [place], [address] Lymphocytes/100 WBC (Bld) 24.4 % Normal 19-41 [facility] Comment on above: Performed By: #### L 100.0100, L500.2500 ####[facility] [address] [place], [address] MCH (RBC) [Entitic mass] 31.7 pg Normal 27.0-32.0 [facility] Comment on above: Performed By: #### L 100.0100, L500.2500 ####[facility] [address] [place], [address] MCHC (RBC) [Mass/Vol] 33.3 g/dL Normal 32-36 [facility] Comment on above: Performed By: #### L 100.0100, L500.2500 ####[facility] [address] [place], [address] MCV (RBC) [Entitic vol] 95.2 fL Normal 81-99 [facility] Comment on above: Performed By: #### L 100.0100, L500.2500 ####[facility] [address] [place], [address] Monocytes/100 WBC (Bld) 11.8 % High 0-10 [facility] Comment on above: Performed By: #### L 100.0100, L500.2500 ####[facility] [address] [place], [address] Neutrophils/100 WBC (Bld) 56.6 % Normal 47-70 [facility] Comment on above: Performed By: #### L 100.0100, L500.2500 ####[facility] [address] [place], [address] Nucleated RBC (Bld) [#/Vol] 0 10*3/uL Normal 0-5 [facility] Comment on above: Performed By: #### L 100.0100, L500.2500 ####[facility] [address] [place], [address] Platelet mean volume (Bld) [Entitic vol] 9.9 fL Normal 6.2-12.0 [facility] Comment on above: Performed By: #### L 100.0100, L500.2500 ####[facility] [address] [place], [address] Platelets (Bld) [#/Vol] 263 10*3/uL Normal 150-450 [facility] Comment on above: Performed By: #### L 100.0100, L500.2500 ####[facility] [address] [place], [address] RBC (Bld) [#/Vol] 3.72 10*6/uL Low 4.2-5.4 [facility] Comment on above: Performed By: #### L 100.0100, L500.2500 ####[facility] [address] [place], [address] RDW SD 44.8 fl High 35.1-43.9 [facility] Comment on above: Performed By: #### L 100.0100, L500.2500 ####[facility] [address] [place], [address] WBC (Bld) [#/Vol] 6.3 10*3/uL Normal 4.4-11.0 [facility] Comment on above: Performed By: #### L 100.0100, L500.2500 ####[facility] [address] [place], [address] Bedside Glucoseon 08-21-2024 FINGERSTICK GLU 178 mg/dL High 74-106 [facility] Comment on above: Result Comment: OLGA GOMEZ OF PATIENT CARE PER NURSING PROTOCOL Performed By: #### L 501.080 ####[facility] [address] [place], [address] FINGERSTICK GLU 175 mg/dL High [facility]106 [facility] Comment on above: Result Comment: OLGA GEMENT OF PATIENT CARE PER NURSING PROTOCOL Performed By: #### L 501.080 ####[facility] [address] [place], [address] FINGERSTICK GLU 224 mg/dL High [address] [facility] Comment on above: Result Comment: OLGA GEMENT OF PATIENT CARE PER NURSING PROTOCOL Performed By: #### L 501.080 ####[facility] [address] [place], [address] FINGERSTICK GLU 182 mg/dL [address] Comment on above: Result Comment: OLGA GEMENT OF PATIENT CARE PER NURSING PROTOCOL Performed By: #### L 501.080 ####[facility] [address] [place], [address] Bedside Glucoseon 08-20-2024 FINGERSTICK GLU 118 mg/dL High [address] [place] [address] Comment on above: Result Comment: OLGA GEMENT OF PATIENT CARE PER NURSING PROTOCOL Performed By: #### L 501.080 ####[facility] [address] [place], [address] FINGERSTICK GLU 151 mg/dL High [address] [place] [address] Comment on above: Result Comment: OLGA GEMENT OF PATIENT CARE PER NURSING PROTOCOL Performed By: #### L 501.080 ####[facility] [address] [place], [address] FINGERSTICK GLU 372 mg/dL High [address] [place] [address] Comment on above: Result Comment: OLGA GEMENT OF PATIENT CARE PER NURSING PROTOCOL Performed By: #### L 501.080 ####[facility] [address] [place], [address] FINGERSTICK GLU 179 mg/dL High [address] [place] [address] Comment on above: Result Comment: OLGA GEMENT OF PATIENT CARE PER NURSING PROTOCOL Performed By: #### L 501.080 ####[facility] [address] [place], [address] Bedside Glucoseon 08-19-2024 FINGERSTICK GLU 105 mg/dL Normal 74-106 [facility] Comment on above: Result Comment: OLGA GEMENT OF PATIENT CARE PER NURSING PROTOCOL Performed By: #### L 501.080 ####[facility] [address] [place], [address] FINGERSTICK GLU 155 mg/dL High -106 [facility] Comment on above: Result Comment: OLGA GEMENT OF PATIENT CARE PER NURSING PROTOCOL Performed By: #### L 501.080 ####[facility] [address] [place], [address] FINGERSTICK GLU 316 mg/dL High -[address] [place] [address] Comment on above: Result Comment: OLGA GEMENT OF PATIENT CARE PER NURSING PROTOCOL Performed By: #### L 501.080 ####[facility] [address] [place], [address] FINGERSTICK GLU 210 mg/dL High [address] [place] [address] Comment on above: Result Comment: OLGA GEMENT OF PATIENT CARE PER NURSING PROTOCOL Performed By: #### L 501.080 ####[facility] [address] [place], [address] Bedside Glucoseon 5 FINGERSTICK GLU 243 mg/dL High 74-106 [facility] Comment on above: Result Comment: OLGA GEMENT OF PATIENT CARE PER NURSING PROTOCOL Performed By: #### L 501.080 ####[facility] [address] [place], [address] FINGERSTICK GLU 229 mg/dL High [address] [place] [address] Comment on above: Result Comment: OLGA GEMENT OF PATIENT CARE PER NURSING PROTOCOL Performed By: #### L 501.080 ####[facility] [address] [place], [address] FINGERSTICK GLU 333 mg/dL High 74-106 [facility] Comment on above: Result Comment: OLGA GEMENT OF PATIENT CARE PER NURSING PROTOCOL Performed By: #### L 501.080 ####[facility] [address] [place], [address] FINGERSTICK GLU 279 mg/dL High 74-106 [facility] Comment on above: Result Comment: OLGA GEMENT OF PATIENT CARE PER NURSING PROTOCOL Performed By: #### L 501.080 ####[facility] [address] [place], [address] Vitamin D,25 Hydroxyon 08-18 Vitamin D 25-OH 43.3 ng/mL Normal [facility] Comment on above: Result Comment: Shamika min D 25(OH) Status Range Deficiency <20 ng/mL (50nmol/L) Insufficiency 20 - 30 ng/mL (50 - 75 nmol/L) Sufficiency 30 - 100 ng/mL (75 - 250 nmol/L) Toxicity >100 ng/mL (>250 nmol/L) Performed By: #### L 506.1000 ####[facility] [address] [place], [address] Bedside Glucoseon 08-17-2024 FINGERSTICK GLU 272 mg/dL High 74-106 [facility] Comment on above: Result Comment: OLGA GEMENT OF PATIENT CARE PER NURSING PROTOCOL Performed By: #### L 501.080 ####[facility] [address] [place], [address] FINGERSTICK GLU 303 mg/dL High 74-106 [facility] Comment on above: Result Comment: OLGA GEMENT OF PATIENT CARE PER NURSING PROTOCOL Performed By: #### L 501.080 ####[facility] [address] [place], [address] FINGERSTICK GLU 248 mg/dL High 74-106 [facility] Comment on above: Result Comment: OLGA GEMENT OF PATIENT CARE PER NURSING PROTOCOL Performed By: #### L 501.080 ####[facility] [address] [place], [address] FINGERSTICK GLU 337 mg/dL High 74-106 [facility] Comment on above: Result Comment: OLGA GEMENT OF PATIENT CARE PER NURSING PROTOCOL Performed By: #### L 501.080 ####[facility] [address] [place], [address] FINGERSTICK GLU 268 mg/dL High 74-106 [facility] Comment on above: Result Comment: OLGA GEMENT OF PATIENT CARE PER NURSING PROTOCOL Performed By: #### L 501.080 ####[facility] [address] [place], [address] Bedside Glucoseon 08-16-2024 FINGERSTICK GLU 317 mg/dL High 74-106 [facility] Comment on above: Result Comment: OLGA GEMENT OF PATIENT CARE PER NURSING PROTOCOL Performed By: #### L 501.080 ####[facility] [address] [place], [address] FINGERSTICK GLU 74 mg/dL Normal 74-106 [facility] Comment on above: Result Comment: OLGA GEMENT OF PATIENT CARE PER NURSING PROTOCOL Performed By: #### L 501.080 ####[facility] [address] [place], [address] FINGERSTICK GLU 58 mg/dL Low 74-106 [facility] Comment on above: Result Comment: OLGA GEMENT OF PATIENT CARE PER NURSING PROTOCOL Performed By: #### L 501.080 ####[facility] [address] [place], [address] FINGERSTICK GLU 45 mg/dL Low 74-106 [facility] Comment on above: Result Comment: OLGA GEMENT OF PATIENT CARE PER NURSING PROTOCOL Performed By: #### L 501.080 ####[facility] [address] [place], [address] FINGERSTICK GLU 214 mg/dL High 74-106 [facility] Comment on above: Result Comment: OLGA GEMENT OF PATIENT CARE PER NURSING PROTOCOL Performed By: #### L 501.080 ####[facility] [address] [place], [address] FINGERSTICK GLU 194 mg/dL High 74-106 [facility] Comment on above: Result Comment: OLGA GEMENT OF PATIENT CARE PER NURSING PROTOCOL Performed By: #### L 501.080 ####[facility] [address] [place], [address] Basic Metabolic Profile (BMP )on 08-15-2024 BUN/CRE 27.6 RATIO High 10-20 [facility] Comment on above: Performed By: #### L 500.4100, L500.2500, L100.0100 ####[facility] [address] [place], [address] CA,Total 9.2 mg/dL Normal 8.5-10.1 [facility] Comment on above: Performed By: #### L 500.4100, L500.2500, L100.0100 ####[facility] [address] [place], [address] Chloride [Moles/Vol] 104 mmol/L Normal 98-107 [facility] Comment on above: Performed By: #### L 500.4100, L500.2500, L100.0100 ####[facility] [address] [place], [address] CO2 [Moles/Vol] 27.0 mmol/L Normal 21.0-32.0 [facility] Comment on above: Performed By: #### L 500.4100, L500.2500, L100.0100 ####[facility] [address] [place], [address] Creatinine [Mass/Vol] 0.83 mg/dL Normal 0.55-1.02 [facility] Comment on above: Result Comment: The validity of the calculated GFR GFRAA in patients over70 years has not been determined. Clinical correlation isessential. Performed By: #### L 500.4100, L500.2500, L100.0100 ####[facility] [address] [place], [address] ECRCL 48.36 ml/min Normal [facility] Comment on above: Performed By: #### L 500.4100, L500.2500, L100.0100 ####[facility] [address] [place], [address] EST GFR - AA 84 mL/min Normal >60 [facility] Comment on above: Result Comment: Afri can Pakistani GFR Calc Performed By: #### L 500.4100, L500.2500, L100.0100 ####[facility] [address] [place], [address] GAP 6 Normal 5-15 [facility] Comment on above: Performed By: #### L 500.4100, L500.2500, L100.0100 ####[facility] [address] [place], [address] GFR/1.73 sq M.predicted among non-blacks MDRD (S/P/Bld) [Vol rate/Area] 70 mL/min/{1.73_m2} Normal >60 [facility] Comment on above: Result Comment: Non- GFR Calc Performed By: #### L 500.4100, L500.2500, L100.0100 ####[facility] [address] [place], [address] Glucose [Mass/Vol] 198 mg/dL High 74-106 [facility] [facility] Comment on above: Result Comment: Fast ing Glucose result greater than or equal to 126 mg/dLsuggests DIABETES MELLITUS per A.D.A. criteria. Performed By: #### L 500.4100, L500.2500, L100.0100 ####[facility] [address] [place], [address] Potassium [Moles/Vol] 4.1 mmol/L Normal 3.5-5.1 [facility] Comment on above: Performed By: #### L 500.4100, L500.2500, L100.0100 ####[facility] [address] [place], [address] Sodium [Moles/Vol] 136 mmol/L Normal 136-145 [facility] Comment on above: Performed By: #### L 500.4100, L500.2500, L100.0100 ####[facility] [address] [place], [address] Urea nitrogen [Mass/Vol] 23 mg/dL High 7-18 [facility] Comment on above: Performed By: #### L 500.4100, L500.2500, L100.0100 ####[facility] [address] [place], [address] Bedside Glucoseon 08-15-2024 FINGERSTICK GLU 238 mg/dL High 74-106 [facility] Comment on above: Result Comment: OLGA GEMENT OF PATIENT CARE PER NURSING PROTOCOL Performed By: #### L 501.080 ####[facility] [address] [place], [address] FINGERSTICK GLU 131 mg/dL High 74-106 [facility] Comment on above: Result Comment: OLGA GEMENT OF PATIENT CARE PER NURSING PROTOCOL Performed By: #### L 501.080 ####[facility] [address] [place], [address] FINGERSTICK GLU 212 mg/dL High 74-106 [facility] Comment on above: Result Comment: OLGA GEMENT OF PATIENT CARE PER NURSING PROTOCOL Performed By: #### L 501.080 ####[facility] [address] [place], [address] FINGERSTICK GLU 183 mg/dL High 74-106 [facility] Comment on above: Result Comment: OLGA GOMEZ OF PATIENT CARE PER NURSING PROTOCOL Performed By: #### L 501.080 ####[facility] [address] [place], [address] CBC W/Diff, Automatedon 01-0 3-5 Absolute Lymph 1.54 X10 3/uL Normal 0.83-4.51 [facility] Comment on above: Performed By: #### L 500.4100, L500.2500, L100.0100 ####[facility] [address] [place], [address] Absolute Neut 5.3 X10 3/uL Normal 2.0-7.7 [facility] Comment on above: Performed By: #### L 500.4100, L500.2500, L100.0100 ####[facility] [address] [place], [address] Basophils/100 WBC (Bld) 0.7 % Normal 0-1 [facility] Comment on above: Performed By: #### L 500.4100, L500.2500, L100.0100 ####[facility] [address] [place], [address] Eosinophils/100 WBC (Bld) 5.3 % High 0-5 [facility] Comment on above: Performed By: #### L 500.4100, L500.2500, L100.0100 ####[facility] [address] [place], [address] Erythrocyte distribution width (RBC) [Ratio] 13.1 % Normal 11.6-14.6 [facility] Comment on above: Performed By: #### L 500.4100, L500.2500, L100.0100 ####[facility] [address] [place], [address] Hematocrit (Bld) [Volume fraction] 37.6 % Normal 37-47 [facility] Comment on above: Performed By: #### L 500.4100, L500.2500, L100.0100 ####[facility] [address] [place], [address] Hemoglobin (Bld) [Mass/Vol] 12.7 g/dL Normal 12.0-15.0 [facility] Comment on above: Performed By: #### L 500.4100, L500.2500, L100.0100 ####[facility] [address] [place], [address] IG% 0.200 Normal 0.0-0.9 [facility] Comment on above: Result Comment: IG% - Immature Granulocytes (promyelocytes, myelocytes andmetamyelocytes) > 1% indicates that a LEFT SHIFT is Present. Performed By: #### L 500.4100, L500.2500, L100.0100 ####[facility] [address] [place], [address] Lymphocytes/100 WBC (Bld) 19.0 % Normal 19-41 [facility] Comment on above: Performed By: #### L 500.4100, L500.2500, L100.0100 ####[facility] [address] [place], [address] MCH (RBC) [Entitic mass] 31.9 pg Normal 27.0-32.0 [facility] Comment on above: Performed By: #### L 500.4100, L500.2500, L100.0100 ####[facility] [address] [place], [address] MCHC (RBC) [Mass/Vol] 33.8 g/dL Normal 32-36 [facility] Comment on above: Performed By: #### L 500.4100, L500.2500, L100.0100 ####[facility] [address] [place], [address] MCV (RBC) [Entitic vol] 94.5 fL Normal 81-99 [facility] Comment on above: Performed By: #### L 500.4100, L500.2500, L100.0100 ####[facility] [address] [place], [address] Monocytes/100 WBC (Bld) 10.1 % High 0-10 [facility] Comment on above: Performed By: #### L 500.4100, L500.2500, L100.0100 ####[facility] [address] [place], [address] Neutrophils/100 WBC (Bld) 64.7 % Normal 47-70 [facility] Comment on above: Performed By: #### L 500.4100, L500.2500, L100.0100 ####[facility] [address] [place], [address] Nucleated RBC (Bld) [#/Vol] 0 10*3/uL Normal 0-5 [facility] Comment on above: Performed By: #### L 500.4100, L500.2500, L100.0100 ####[facility] [address] [place], [address] Platelet mean volume (Bld) [Entitic vol] 9.9 fL Normal 6.2-12.0 [facility] Comment on above: Performed By: #### L 500.4100, L500.2500, L100.0100 ####[facility] [address] [place], [address] Platelets (Bld) [#/Vol] 270 10*3/uL Normal 150-450 [facility] Comment on above: Performed By: #### L 500.4100, L500.2500, L100.0100 ####[facility] [address] [place], [address] RBC (Bld) [#/Vol] 3.98 10*6/uL Low 4.2-5.4 [facility] Comment on above: Performed By: #### L 500.4100, L500.2500, L100.0100 ####[facility] [address] [place], [address] RDW SD 45.0 fl High 35.1-43.9 [facility] Comment on above: Performed By: #### L 500.4100, L500.2500, L100.0100 ####[facility] [address] [place], [address] WBC (Bld) [#/Vol] 8.1 10*3/uL Normal 4.4-11.0 [facility] Comment on above: Performed By: #### L 500.4100, L500.2500, L100.0100 ####[facility] [address] [place], [address] Lipid Profileon 08-15-2024 Cholesterol [Mass/Vol] 165 mg/dL Normal 200 [facility] Comment on above: Result Comment: <200 mg/dL Desirable 200-240 mg/dL Borderline >240 mg/dL High Risk Performed By: #### L 500.4100, L500.2500, L100.0100 ####[facility] [address] [place], [address] Cholesterol in HDL [Mass/Vol] 61 mg/dL Normal [facility] Comment on above: Result Comment: The drugs N-Acetylcysteine and Metamizole may falselydepress this assay. Reference Range HDL <40 mg/dL Low HDL Cholesterol HDL >or= 60 mg/dL High HDL Cholesterol Performed By: #### L 500.4100, L500.2500, L100.0100 ####[facility] [address] [place], [address] Cholesterol in LDL [Mass/Vol] 75 mg/dL Normal 0-130 [facility] Comment on above: Performed By: #### L 500.4100, L500.2500, L100.0100 ####[facility] [address] [place], [address] Cholesterol in VLDL [Mass/Vol] 29 mg/dL Normal 5-40 [facility] Comment on above: Performed By: #### L 500.4100, L500.2500, L100.0100 ####[facility] [address] [place], [address] Triglyceride [Mass/Vol] 147 mg/dL Normal [facility] Comment on above: Result Comment: The drugs N-Acetylcysteine and Metamizole may falselydepress this assay.Serum Triglycerides Reference Interval Normal <150 mg/dL Borderline high 150 - 199 mg/dL High 200 - 499 mg/dL Very High > or = 500 mg/dL Performed By: #### L 500.4100, L500.2500, L100.0100 ####[facility] [address] [place], [address] Bedside Glucoseon 08-14-2024 FINGERSTICK GLU 153 mg/dL High 74-106 [facility] Comment on above: Result Comment: OLGA GEMENT OF PATIENT CARE PER NURSING PROTOCOL Performed By: #### L 501.080 ####[facility] [address] [place], [address] FINGERSTICK GLU 147 mg/dL High 74-106 [facility] Comment on above: Result Comment: OLGA GEMENT OF PATIENT CARE PER NURSING PROTOCOL Performed By: #### L 501.080 ####[facility] [address] [place], [address] FINGERSTICK GLU 209 mg/dL High 74-106 [facility] Comment on above: Result Comment: OLGA GEMENT OF PATIENT CARE PER NURSING PROTOCOL Performed By: #### L 501.080 ####[facility] [address] [place], [address] FINGERSTICK GLU 231 mg/dL High 74-106 [facility] Comment on above: Result Comment: OLGA GEMENT OF PATIENT CARE PER NURSING PROTOCOL Performed By: #### L 501.080 ####[facility] [address] [place], [address] Bedside Glucoseon 08-13-2024 FINGERSTICK GLU 258 mg/dL High 74-106 [facility] Comment on above: Result Comment: OLGA GEMENT OF PATIENT CARE PER NURSING PROTOCOL Performed By: #### L 501.080 ####[facility] [address] [place], [address] FINGERSTICK GLU 146 mg/dL High 74-106 [facility] Comment on above: Result Comment: OLGA GEMENT OF PATIENT CARE PER NURSING PROTOCOL Performed By: #### L 501.080 ####[facility] [address] [place], [address] FINGERSTICK GLU 79 mg/dL Normal 74-106 [facility] Comment on above: Result Comment: OLGA GEMENT OF PATIENT CARE PER NURSING PROTOCOL Performed By: #### L 501.080 ####[facility] [address] [place], [address] FINGERSTICK GLU 63 mg/dL Low 74-106 [facility] Comment on above: Result Comment: OLGA GEMENT OF PATIENT CARE PER NURSING PROTOCOL Performed By: #### L 501.080 ####[facility] [address] [place], [address] FINGERSTICK GLU 78 mg/dL Normal 74-106 [facility] Comment on above: Result Comment: OLGA GEMENT OF PATIENT CARE PER NURSING PROTOCOL Performed By: #### L 501.080 ####[facility] [address] [place], [address] FINGERSTICK GLU 234 mg/dL High 74-106 [facility] Comment on above: Result Comment: OLGA GEMENT OF PATIENT CARE PER NURSING PROTOCOL Performed By: #### L 501.080 ####[facility] [address] [place], [address] FINGERSTICK GLU 125 mg/dL High 74-106 [facility] Comment on above: Result Comment: OLGA GEMENT OF PATIENT CARE PER NURSING PROTOCOL Performed By: #### L 501.080 ####[facility] [address] [facility] [address] CTA Head AND Neck W/ Contras ton 08-13-2024 CTA Head AND Neck W/ Contrast Normal [facility] Thyroid Peroxidase ABon 01-0 THYR PEROX AB 12 IU/mL Normal 0-34 [facility] Comment on above: Result Comment: Perf ormed at: CB - [facility] [address] [id number] Director: Marco Antonio Diaz PhD, Phone: [phone] Performed By: #### L 6928.6266 ####[facility] [address] [facility] [address] Bedside Glucoseon 08-12-2024 FINGERSTICK GLU 157 mg/dL High 74-106 [facility] Comment on above: Result Comment: OLGA GEMENT OF PATIENT CARE PER NURSING PROTOCOL Performed By: #### L 501.080 ####[facility] [address] [facility] [address] FINGERSTICK GLU 195 mg/dL High 74-106 [facility] Comment on above: Result Comment: OLGA GEMENT OF PATIENT CARE PER NURSING PROTOCOL Performed By: #### L 501.080 ####[facility] [address] [facility] [address] FINGERSTICK GLU 324 mg/dL High 74-106 [facility] Comment on above: Result Comment: OLGA GEMENT OF PATIENT CARE PER NURSING PROTOCOL Performed By: #### L 501.080 ####[facility] [address] [place], [address] FINGERSTICK GLU 137 mg/dL High 74-106 [facility] Comment on above: Result Comment: OLGA GEMENT OF PATIENT CARE PER NURSING PROTOCOL Performed By: #### L 501.080 ####[facility] [address] [place], [address] Brain without Contraston Brain without Contrast Normal [facility] Bedside Glucoseon 08-11-2024 FINGERSTICK GLU 173 mg/dL High 74-106 [facility] Comment on above: Result Comment: OLGA GEMENT OF PATIENT CARE PER NURSING PROTOCOL Performed By: #### L 501.080 ####[facility] [address] [place], [address] FINGERSTICK GLU 152 mg/dL High 74-106 [facility] Comment on above: Result Comment: OLGA GEMENT OF PATIENT CARE PER NURSING PROTOCOL Performed By: #### L 501.080 ####[facility] [address] [place], [address] FINGERSTICK GLU 333 mg/dL High 74-106 [facility] Comment on above: Result Comment: OLGA GEMENT OF PATIENT CARE PER NURSING PROTOCOL Performed By: #### L 501.080 ####[facility] [address] [place], [address] FINGERSTICK GLU 190 mg/dL High 74-106 [facility] Comment on above: Result Comment: OLGA GEMENT OF PATIENT CARE PER NURSING PROTOCOL Performed By: #### L 501.080 ####[facility] [address] [place], [address] T4 Free Directon 08-11-2024 T4 FREE DIRECT 1.14 ng/dL Normal 0.76-1.46 [facility] Comment on above: Order Comment: OKAY TO ADD PER DR PASTOR Performed By: #### L 506.0400 ####[facility] [address] [place], [address] Bedside Glucoseon 08-10-2024 FINGERSTICK GLU 195 mg/dL High [address] [facility] Comment on above: Result Comment: OLGA GEMENT OF PATIENT CARE PER NURSING PROTOCOL Performed By: #### L 501.080 ####[facility] [address] [place], [address] FINGERSTICK GLU 217 mg/dL High [address] [place] [address] Comment on above: Result Comment: OLGA GEMENT OF PATIENT CARE PER NURSING PROTOCOL Performed By: #### L 501.080 ####[facility] [address] [place], [address] FINGERSTICK GLU 301 mg/dL High [address] [place] [address] Comment on above: Result Comment: OLGA GEMENT OF PATIENT CARE PER NURSING PROTOCOL Performed By: #### L 501.080 ####[facility] [address] [place], [address] FINGERSTICK GLU 247 mg/dL High [address] [place] [address] Comment on above: Result Comment: OLGA GEMENT OF PATIENT CARE PER NURSING PROTOCOL Performed By: #### L 501.080 ####[facility] [address] [place], [address] FINGERSTICK GLU 113 mg/dL High [address] [place] [address] Comment on above: Result Comment: OLGA GEMENT OF PATIENT CARE PER NURSING PROTOCOL Performed By: #### L 501.080 ####[facility] [address] [place], [address] Bedside Glucoseon 08-09-2024 FINGERSTICK GLU 130 mg/dL High [facility]106 [facility] Comment on above: Result Comment: OLGA GEMENT OF PATIENT CARE PER NURSING PROTOCOL Performed By: #### L 501.080 ####[facility] [address] [place], [address] FINGERSTICK GLU 145 mg/dL High 74-106 [facility] Comment on above: Result Comment: OLGA GEMENT OF PATIENT CARE PER NURSING PROTOCOL Performed By: #### L 501.080 ####[facility] [address] [place], [address] FINGERSTICK GLU 268 mg/dL High 74-106 [facility] Comment on above: Result Comment: OLGA GEMENT OF PATIENT CARE PER NURSING PROTOCOL Performed By: #### L 501.080 ####[facility] [address] [place], [address] FINGERSTICK GLU 293 mg/dL High 74-106 [facility] Comment on above: Result Comment: OLGA GEMENT OF PATIENT CARE PER NURSING PROTOCOL Performed By: #### L 501.080 ####[facility] [address] [place], [address] FINGERSTICK GLU 255 mg/dL High -106 [facility] Comment on above: Result Comment: OLGA GEMENT OF PATIENT CARE PER NURSING PROTOCOL Performed By: #### L 501.080 ####[facility] [address] [place], [address] Basic Metabolic Profile (BMP )on 08-08-2024 BUN/CRE 24.6 RATIO High 10-20 [facility] Comment on above: Performed By: #### L 500.2500, L100.0100 ####[facility] [address] [place], [address] CA,Total 9.5 mg/dL Normal 8.5-10.1 [facility] Comment on above: Performed By: #### L 500.2500, L100.0100 ####[facility] [address] [place], [address] Chloride [Moles/Vol] 106 mmol/L Normal 98-107 [facility] Comment on above: Performed By: #### L 500.2500, L100.0100 ####[facility] [address] [place], [address] CO2 [Moles/Vol] 23.0 mmol/L Normal 21.0-32.0 [facility] Comment on above: Performed By: #### L 500.2500, L100.0100 ####[facility] [address] [place], [address] Creatinine [Mass/Vol] 0.73 mg/dL Normal 0.55-1.02 [facility] Comment on above: Result Comment: The validity of the calculated GFR GFRAA in patients over70 years has not been determined. Clinical correlation isessential. Performed By: #### L 500.2500, L100.0100 ####[facility] [address] [place], [address] ECRCL 49.55 ml/min Normal [facility] Comment on above: Performed By: #### L 500.2500, L100.0100 ####[facility] [address] [place], [address] EST GFR - AA 98 mL/min Normal >60 [facility] Comment on above: Result Comment: Afri can Pakistani GFR Calc Performed By: #### L 500.2500, L100.0100 ####[facility] [address] [place], [address] GAP 5 Normal 5-15 [facility] Comment on above: Performed By: #### L 500.2500, L100.0100 ####[facility] [address] [place], [address] GFR/1.73 sq M.predicted among non-blacks MDRD (S/P/Bld) [Vol rate/Area] 81 mL/min/{1.73_m2} Normal >60 [facility] Comment on above: Result Comment: Non- GFR Calc Performed By: #### L 500.2500, L100.0100 ####[facility] [address] [place], [address] Glucose [Mass/Vol] 250 mg/dL High 74-106 [facility] Comment on above: Result Comment: Gluc ose result greater than or equal to 200 mg/dLsuggests DIABETES MELLITUS per A.D.A. criteria. Performed By: #### L 500.2500, L100.0100 ####[facility] [address] [place], [address] Potassium [Moles/Vol] 4.1 mmol/L Normal 3.5-5.1 [facility] Comment on above: Performed By: #### L 500.2500, L100.0100 ####[facility] [address] [place], [address] Sodium [Moles/Vol] 135 mmol/L Low 136-145 [facility] Comment on above: Performed By: #### L 500.2500, L100.0100 ####[facility] [address] [place], [address] Urea nitrogen [Mass/Vol] 18 mg/dL Normal 7-18 [facility] Comment on above: Performed By: #### L 500.2500, L100.0100 ####[facility] [address] [place], [address] Bedside Glucoseon 08-08-2024 FINGERSTICK GLU 181 mg/dL High 74-106 [facility] Comment on above: Result Comment: OLGA GEMENT OF PATIENT CARE PER NURSING PROTOCOL Performed By: #### L 501.080 ####[facility] [address] [place], [address] FINGERSTICK GLU 227 mg/dL High -[address] [place] [address] Comment on above: Result Comment: OLGA GEMENT OF PATIENT CARE PER NURSING PROTOCOL Performed By: #### L 501.080 ####[facility] [address] [place], [address] FINGERSTICK GLU 233 mg/dL High 74-106 [facility] Comment on above: Result Comment: OLGA GEMENT OF PATIENT CARE PER NURSING PROTOCOL Performed By: #### L 501.080 ####[facility] [address] [place], [address] FINGERSTICK GLU 229 mg/dL High 74-106 [facility] Comment on above: Result Comment: OLGA GEMENT OF PATIENT CARE PER NURSING PROTOCOL Performed By: #### L 501.080 ####[facility] [address] [place], [address] Brain/Head W/WO Contraston 1 10-09-2023 Brain/Head W/WO Contrast Normal [facility] CBC W/Diff, Automatedon 12-2 Absolute Lymph 1.30 X10 3/uL Normal 0.83-4.51 [facility] Comment on above: Performed By: #### L 500.2500, L100.0100 ####[facility] [address] [place], [address] Absolute Neut 4.8 X10 3/uL Normal 2.0-7.7 [facility] Comment on above: Performed By: #### L 500.2500, L100.0100 ####[facility] [address] [place], [address] Basophils/100 WBC (Bld) 0.6 % Normal 0-1 [facility] Comment on above: Performed By: #### L 500.2500, L100.0100 ####[facility] [address] [place], [address] Eosinophils/100 WBC (Bld) 5.1 % High 0-5 [facility] Comment on above: Performed By: #### L 500.2500, L100.0100 ####[facility] [address] [place], [address] Erythrocyte distribution width (RBC) [Ratio] 13.4 % Normal 11.6-14.6 [facility] Comment on above: Performed By: #### L 500.2500, L100.0100 ####[facility] [address] [place], [address] Hematocrit (Bld) [Volume fraction] 38.3 % Normal 37-47 [facility] Comment on above: Performed By: #### L 500.2500, L100.0100 ####[facility] [address] [place], [address] Hemoglobin (Bld) [Mass/Vol] 12.8 g/dL Normal 12.0-15.0 [facility] Comment on above: Performed By: #### L 500.2500, L100.0100 ####[facility] [address] [place], [address] IG% 0.300 Normal 0.0-0.9 [facility] Comment on above: Result Comment: IG% - Immature Granulocytes (promyelocytes, myelocytes andmetamyelocytes) > 1% indicates that a LEFT SHIFT is Present. Performed By: #### L 500.2500, L100.0100 ####[facility] [address] [place], [address] Lymphocytes/100 WBC (Bld) 18.0 % Low 19-41 [facility] Comment on above: Performed By: #### L 500.2500, L100.0100 ####[facility] [address] [place], [address] MCH (RBC) [Entitic mass] 31.6 pg Normal 27.0-32.0 [facility] Comment on above: Performed By: #### L 500.2500, L100.0100 ####[facility] [address] [place], [address] MCHC (RBC) [Mass/Vol] 33.4 g/dL Normal 32-36 [facility] Comment on above: Performed By: #### L 500.2500, L100.0100 ####[facility] [address] [place], [address] MCV (RBC) [Entitic vol] 94.6 fL Normal 81-99 [facility] Comment on above: Performed By: #### L 500.2500, L100.0100 ####[facility] [address] [place], [address] Monocytes/100 WBC (Bld) 10.1 % High 0-10 [facility] Comment on above: Performed By: #### L 500.2500, L100.0100 ####[facility] [address] [place], [address] Neutrophils/100 WBC (Bld) 65.9 % Normal 47-70 [facility] Comment on above: Performed By: #### L 500.2500, L100.0100 ####[facility] [address] [place], [address] Nucleated RBC (Bld) [#/Vol] 0 10*3/uL Normal 0-5 [facility] Comment on above: Performed By: #### L 500.2500, L100.0100 ####[facility] [address] [place], [address] Platelet mean volume (Bld) [Entitic vol] 9.6 fL Normal 6.2-12.0 [facility] Comment on above: Performed By: #### L 500.2500, L100.0100 ####[facility] [address] [place], [address] Platelets (Bld) [#/Vol] 253 10*3/uL Normal 150-450 [facility] Comment on above: Performed By: #### L 500.2500, L100.0100 ####[facility] [address] [place], [address] RBC (Bld) [#/Vol] 4.05 10*6/uL Low 4.2-5.4 [facility] Comment on above: Performed By: #### L 500.2500, L100.0100 ####[facility] [address] [place], [address] RDW SD 46.2 fl High 35.1-43.9 [facility] Comment on above: Performed By: #### L 500.2500, L100.0100 ####[facility] [address] [place], [address] WBC (Bld) [#/Vol] 7.2 10*3/uL Normal 4.4-11.0 [facility] Comment on above: Performed By: #### L 500.2500, L100.0100 ####[facility] [address] [place], [address] Thyroid Stim Hormone (TSH)on 08-08-2024 TSH 7.090 uIU/mL High 0.358-3.74 0 [facility] Comment on above: Performed By: #### L 503.0105, L501.9520 ####[facility] [address] [place], [address] Urine Cultureon 08-08-2024 URC SAMPLE COLLECTED 1443 Yeast, not Shanna albicans [place] Count 50,000-80,000 Normal [facility] Comment on above: Performed By: #### M 100.2200 ####[facility] [address] [place], [address] Vitamin B12on 08-08-2024 Cobalamin (Vitamin B12) [Mass/Vol] 1104 pg/mL High 211-911 [facility] Comment on above: Performed By: #### L 503.0105, L501.9520 ####[facility] [address] [place], [address] Bedside Glucoseon 4 FINGERSTICK GLU 163 mg/dL High [facility]106 [facility] Comment on above: Result Comment: OLGA GEMENT OF PATIENT CARE PER NURSING PROTOCOL Performed By: #### L 501.080 ####[facility] [address] [place], [address] FINGERSTICK GLU 207 mg/dL High [address] [place] [address] Comment on above: Result Comment: OLGA GEMENT OF PATIENT CARE PER NURSING PROTOCOL Performed By: #### L 501.080 ####[facility] [address] [place], [address] FINGERSTICK GLU 248 mg/dL High [address] [place] [address] Comment on above: Result Comment: OLGA GEMENT OF PATIENT CARE PER NURSING PROTOCOL Performed By: #### L 501.080 ####[facility] [address] [place], [address] FINGERSTICK GLU 234 mg/dL High [address] [place] [address] Comment on above: Result Comment: OLGA GEMENT OF PATIENT CARE PER NURSING PROTOCOL Performed By: #### L 501.080 ####[facility] [address] [place], [address] Bedside Glucoseon 4 FINGERSTICK GLU 281 mg/dL High [address] [place] [address] Comment on above: Result Comment: OLGA GEMENT OF PATIENT CARE PER NURSING PROTOCOL Performed By: #### L 501.080 ####[facility] [address] [place], [address] FINGERSTICK GLU 204 mg/dL High [address] [place] [address] Comment on above: Result Comment: OLGA GEMENT OF PATIENT CARE PER NURSING PROTOCOL Performed By: #### L 501.080 ####[facility] [address] [place], [address] FINGERSTICK GLU 252 mg/dL High [address] [place] [address] Comment on above: Result Comment: OLGA GEMENT OF PATIENT CARE PER NURSING PROTOCOL Performed By: #### L 501.080 ####[facility] [address] [place], [address] FINGERSTICK GLU 277 mg/dL High 74-106 [facility] Comment on above: Result Comment: OLGA GEMENT OF PATIENT CARE PER NURSING PROTOCOL Performed By: #### L 501.080 ####[facility] [address] [place], [address] Bedside Glucoseon 08-05-2024 FINGERSTICK GLU 255 mg/dL High -106 [facility] Comment on above: Result Comment: OLGA GEMENT OF PATIENT CARE PER NURSING PROTOCOL Performed By: #### L 501.080 ####[facility] [address] [place], [address] FINGERSTICK GLU 267 mg/dL High 74-106 [facility] Comment on above: Result Comment: OLGA GEMENT OF PATIENT CARE PER NURSING PROTOCOL Performed By: #### L 501.080 ####[facility] [address] [place], [address] FINGERSTICK GLU 439 mg/dL High 74-106 [facility] Comment on above: Result Comment: OLGA GEMENT OF PATIENT CARE PER NURSING PROTOCOL Performed By: #### L 501.080 ####[facility] [address] [place], [address] FINGERSTICK GLU 332 mg/dL High 74-106 [facility] Comment on above: Result Comment: OLGA GEMENT OF PATIENT CARE PER NURSING PROTOCOL Performed By: #### L 501.080 ####[facility] [address] [place], [address] Hemoglobin A1con 08-05-2024 HbA1c (Bld) [Mass fraction] 7.2 % High 3.8-5.6 [facility] Comment on above: Result Comment: Norm al < 5.7 % Prediabetic 5.7 - 6.4 % Diabetic >or= 6.5 % Please note range changes. Performed By: #### L 501.9985 ####[facility] [address] [place], [address] Urinalysis, Completeon 08-05 BACTERIA 1+ /hpf Normal None Seen [facility] Comment on above: Order Comment: Micro scopic field is filled. Other elements may beobscured.CATHETER SPECIMEN Performed By: #### L 400.0001 ####[facility] [address] [place], [address] RBC 0-5 SEEN Normal 0-5 [facility] Comment on above: Order Comment: Micro scopic field is filled. Other elements may beobscured.CATHETER SPECIMEN Performed By: #### L 400.0001 ####[facility] [address] [place], [address] YEAST 2+ /hpf Normal None Seen [facility] Comment on above: Order Comment: Micro scopic field is filled. Other elements may beobscured.CATHETER SPECIMEN Performed By: #### L 400.0001 ####[facility] [address] [place], [address] WBC >100 SEEN Normal 0-5 [facility] Comment on above: Order Comment: Micro scopic field is filled. Other elements may beobscured.CATHETER SPECIMEN Performed By: #### L 400.0001 ####[facility] [address] [place], [address] EPI,SQUAMOUS 0-5 SEEN Normal 5-10 [facility] Comment on above: Order Comment: Micro scopic field is filled. Other elements may beobscured.CATHETER SPECIMEN Performed By: #### L 400.0001 ####[facility] [address] [place], [address] Mucus Ql (Urine sed) 0 SEEN Normal [facility] Comment on above: Order Comment: Micro scopic field is filled. Other elements may beobscured.CATHETER SPECIMEN Performed By: #### L 400.0001 ####[facility] [address] [place], [address] Bedside Glucoseon 08-04-2024 FINGERSTICK GLU 282 mg/dL High 74-106 [facility] Comment on above: Result Comment: OLGA GEMENT OF PATIENT CARE PER NURSING PROTOCOL Performed By: #### L 501.080 ####[facility] [address] [place], [address] FINGERSTICK GLU 253 mg/dL High -106 [facility] Comment on above: Result Comment: OLGA GEMENT OF PATIENT CARE PER NURSING PROTOCOL Performed By: #### L 501.080 ####[facility] [address] [place], [address] FINGERSTICK GLU 336 mg/dL High -106 [facility] Comment on above: Result Comment: OLGA GEMENT OF PATIENT CARE PER NURSING PROTOCOL Performed By: #### L 501.080 ####[facility] [address] [place], [address] FINGERSTICK GLU 220 mg/dL High [address] [place] [address] Comment on above: Result Comment: OLGA GEMENT OF PATIENT CARE PER NURSING PROTOCOL Performed By: #### L 501.080 ####[facility] [address] [place], [address] CBC W/Diff, Automatedon 07-14 Absolute Lymph 1.68 X10 3/uL Normal 0.83-4.51 [facility] Comment on above: Performed By: #### L 100.0100, L500.4050 ####[facility] [address] [place], [address] Absolute Neut 3.7 X10 3/uL Normal 2.0-7.7 [facility] Comment on above: Performed By: #### L 100.0100, L500.4050 ####[facility] [address] [place], [address] Basophils/100 WBC (Bld) 0.6 % Normal 0-1 [facility] Comment on above: Performed By: #### L 100.0100, L500.4050 ####[facility] [address] [place], [address] Eosinophils/100 WBC (Bld) 4.4 % Normal 0-5 [facility] Comment on above: Performed By: #### L 100.0100, L500.4050 ####[facility] [address] [place], [address] Erythrocyte distribution width (RBC) [Ratio] 13.7 % Normal 11.6-14.6 [facility] Comment on above: Performed By: #### L 100.0100, L500.4050 ####[facility] [address] [place], [address] Hematocrit (Bld) [Volume fraction] 36.5 % Low 37-47 [facility] Comment on above: Performed By: #### L 100.0100, L500.4050 ####[facility] [address] [place], [address] Hemoglobin (Bld) [Mass/Vol] 12.0 g/dL Normal 12.0-15.0 [facility] Comment on above: Performed By: #### L 100.0100, L500.4050 ####[facility] [address] [place], [address] IG% 0.200 Normal 0.0-0.9 [facility] Comment on above: Result Comment: IG% - Immature Granulocytes (promyelocytes, myelocytes andmetamyelocytes) > 1% indicates that a LEFT SHIFT is Present. Performed By: #### L 100.0100, L500.4050 ####[facility] [address] [place], [address] Lymphocytes/100 WBC (Bld) 26.2 % Normal 19-41 [facility] Comment on above: Performed By: #### L 100.0100, L500.4050 ####[facility] [address] [place], [address] MCH (RBC) [Entitic mass] 31.4 pg Normal 27.0-32.0 [facility] Comment on above: Performed By: #### L 100.0100, L500.4050 ####[facility] [address] [place], [address] MCHC (RBC) [Mass/Vol] 32.9 g/dL Normal 32-36 [facility] Comment on above: Performed By: #### L 100.0100, L500.4050 ####[facility] [address] [place], [address] MCV (RBC) [Entitic vol] 95.5 fL Normal 81-99 [facility] Comment on above: Performed By: #### L 100.0100, L500.4050 ####[facility] [address] [place], [address] Monocytes/100 WBC (Bld) 10.7 % High 0-10 [facility] Comment on above: Performed By: #### L 100.0100, L500.4050 ####[facility] [address] [place], [address] Neutrophils/100 WBC (Bld) 57.9 % Normal 47-70 [facility] Comment on above: Performed By: #### L 100.0100, L500.4050 ####[facility] [address] [place], [address] Nucleated RBC (Bld) [#/Vol] 0 10*3/uL Normal 0-5 [facility] Comment on above: Performed By: #### L 100.0100, L500.4050 ####[facility] [address] [place], [address] Platelet mean volume (Bld) [Entitic vol] 9.7 fL Normal 6.2-12.0 [facility] Comment on above: Performed By: #### L 100.0100, L500.4050 ####[facility] [address] [place], [address] Platelets (Bld) [#/Vol] 224 10*3/uL Normal 150-450 [facility] Comment on above: Performed By: #### L 100.0100, L500.4050 ####[facility] [address] [place], [address] RBC (Bld) [#/Vol] 3.82 10*6/uL Low 4.2-5.4 [facility] Comment on above: Performed By: #### L 100.0100, L500.4050 ####[facility] [address] [place], [address] RDW SD 47.9 fl High 35.1-43.9 [facility] Comment on above: Performed By: #### L 100.0100, L500.4050 ####[facility] [address] [place], [address] WBC (Bld) [#/Vol] 6.4 10*3/uL Normal 4.4-11.0 [facility] Comment on above: Performed By: #### L 100.0100, L500.4050 ####[facility] [address] [place], [address] Comprehensive Metabolic Prof ilon 08-04-2024 Albumin [Mass/Vol] 3.1 g/dL Low 3.2-5.0 [facility] Comment on above: Performed By: #### L 100.0100, L500.4050 ####[facility] [address] [place], [address] Albumin/Globulin [Mass ratio] 0.9 {ratio} Normal 0.9-2.4 [facility] Comment on above: Performed By: #### L 100.0100, L500.4050 ####[facility] [address] [place], [address] ALK P 72 U/L Normal 45-117 [facility] Comment on above: Performed By: #### L 100.0100, L500.4050 ####[facility] [address] [place], [address] ALT [Catalytic activity/Vol] 20 U/L Normal 13-56 [facility] Comment on above: Performed By: #### L 100.0100, L500.4050 ####[facility] [address] [place], [address] AST [Catalytic activity/Vol] 23 U/L Normal 15-37 [facility] Comment on above: Performed By: #### L 100.0100, L500.4050 ####[facility] [address] [place], [address] Bilirubin [Mass/Vol] 0.80 mg/dL Normal 0.20-1.00 [facility] Comment on above: Result Comment: For patients on eltrombopag therapy, use of Dimension [place] TBIL is not recommended. Performed By: #### L 100.0100, L500.4050 ####[facility] [address] [place], [address] BUN/CRE 15.9 RATIO Normal 10-20 [facility] Comment on above: Performed By: #### L 100.0100, L500.4050 ####[facility] [address] [place], [address] CA,Total 8.9 mg/dL Normal 8.5-10.1 [facility] Comment on above: Performed By: #### L 100.0100, L500.4050 ####[facility] [address] [place], [address] Chloride [Moles/Vol] 108 mmol/L High 98-107 [facility] Comment on above: Performed By: #### L 100.0100, L500.4050 ####[facility] [address] [place], [address] CO2 [Moles/Vol] 24.0 mmol/L Normal 21.0-32.0 [facility] Comment on above: Performed By: #### L 100.0100, L500.4050 ####[facility] [address] [place], [address] Creatinine [Mass/Vol] 0.82 mg/dL Normal 0.55-1.02 [facility] Comment on above: Result Comment: The validity of the calculated GFR GFRAA in patients over70 years has not been determined. Clinical correlation isessential. Performed By: #### L 100.0100, L500.4050 ####[facility] [address] [place], [address] ECRCL 49.08 ml/min Normal [facility] Comment on above: Performed By: #### L 100.0100, L500.4050 ####[facility] [address] [place], [address] EST GFR - AA 86 mL/min Normal >60 [facility] Comment on above: Result Comment: Afri can Pakistani GFR Calc Performed By: #### L 100.0100, L500.4050 ####[facility] [address] [place], [address] GAP 5 Normal 5-15 [facility] Comment on above: Performed By: #### L 100.0100, L500.4050 ####[facility] [address] [place], [address] GFR/1.73 sq M.predicted among non-blacks MDRD (S/P/Bld) [Vol rate/Area] 71 mL/min/{1.73_m2} Normal >60 [facility] Comment on above: Result Comment: Non- GFR Calc Performed By: #### L 100.0100, L500.4050 ####[facility] [address] [place], [address] Globulin (S) [Mass/Vol] 3.5 g/dL Normal 2.2-4.2 [facility] Comment on above: Performed By: #### L 100.0100, L500.4050 ####[facility] [address] [place], [address] Glucose [Mass/Vol] 233 mg/dL High 74-106 [facility] Comment on above: Result Comment: Gluc ose result greater than or equal to 200 mg/dLsuggests DIABETES MELLITUS per A.D.A. criteria. Performed By: #### L 100.0100, L500.4050 ####[facility] [address] [place], [address] Potassium [Moles/Vol] 5.1 mmol/L Normal 3.5-5.1 [facility] Comment on above: Performed By: #### L 100.0100, L500.4050 ####[facility] [address] [place], [address] Sodium [Moles/Vol] 137 mmol/L Normal 136-145 [facility] Comment on above: Performed By: #### L 100.0100, L500.4050 ####[facility] [address] [place], [address] T PROT 6.6 g/dL Normal 6.4-8.2 [facility] Comment on above: Performed By: #### L 100.0100, L500.4050 ####[facility] [address] [place], [address] Urea nitrogen [Mass/Vol] 13 mg/dL Normal 7-18 [facility] Comment on above: Performed By: #### L 100.0100, L500.4050 ####[facility] [address] [place], [address] ENTERIC PATHOGEN PANEL STOOL on 08-04-2024 EP PANEL Normal [facility] Comment on above: Performed By: #### M 100.637 ####[facility] [address] [place], [address] RESPIRATORY PANEL MOLECULARo n 08-04-2024 RP PANEL Normal [facility] Comment on above: Performed By: #### M 100.638 ####[facility] [address] [place], [address] 12 Lead EKGon 08-03-2024 12 Lead EKG Normal [facility] BNP,B-Type NATRIURETIC PEPTI Genoveva 08-03-2024 Natriuretic peptide B (Bld) [Mass/Vol] 51.8 pg/mL Normal 0-100 [facility] Comment on above: Performed By: #### L 503.6620, L501.5425, L501.2450, L500.4050, L100.0500 ####[facility] [address] [place], [address] Bedside Glucoseon 08-03-2024 FINGERSTICK GLU 242 mg/dL High 74-106 [facility] Comment on above: Result Comment: OLGA GEMENT OF PATIENT CARE PER NURSING PROTOCOL Performed By: #### L 501.080 ####[facility] [address] [place], [address] FINGERSTICK GLU 151 mg/dL High 74-106 [facility] Comment on above: Result Comment: OLGA GEMENT OF PATIENT CARE PER NURSING PROTOCOL Performed By: #### L 501.080 ####[facility] [address] [place], [address] Brain/Head without Contrasto n 08-03-2024 Brain/Head without Contrast Normal [facility] CBC-Complete Blood Cnt No Di ffon 08-03-2024 Erythrocyte distribution width (RBC) [Ratio] 13.6 % Normal 11.6-14.6 [facility] Comment on above: Performed By: #### L 503.6620, L501.5425, L501.2450, L500.4050, L100.0500 ####[facility] [address] [place], [address] Hematocrit (Bld) [Volume fraction] 38.6 % Normal 37-47 [facility] Comment on above: Performed By: #### L 503.6620, L501.5425, L501.2450, L500.4050, L100.0500 ####[facility] [address] [place], [address] Hemoglobin (Bld) [Mass/Vol] 13.1 g/dL Normal 12.0-15.0 [facility] Comment on above: Performed By: #### L 503.6620, L501.5425, L501.2450, L500.4050, L100.0500 ####[facility] [address] [place], [address] MCH (RBC) [Entitic mass] 31.7 pg Normal 27.0-32.0 [facility] Comment on above: Performed By: #### L 503.6620, L501.5425, L501.2450, L500.4050, L100.0500 ####[facility] [address] [place], [address] MCHC (RBC) [Mass/Vol] 33.9 g/dL Normal 32-36 [facility] Comment on above: Performed By: #### L 503.6620, L501.5425, L501.2450, L500.4050, L100.0500 ####[facility] [address] [place], [address] MCV (RBC) [Entitic vol] 93.5 fL Normal 81-99 [facility] Comment on above: Performed By: #### L 503.6620, L501.5425, L501.2450, L500.4050, L100.0500 ####[facility] [address] [place], [address] Platelet mean volume (Bld) [Entitic vol] 9.6 fL Normal 6.2-12.0 [facility] Comment on above: Performed By: #### L 503.6620, L501.5425, L501.2450, L500.4050, L100.0500 ####[facility] [address] [place], [address] Platelets (Bld) [#/Vol] 278 10*3/uL Normal 150-450 [facility] Comment on above: Performed By: #### L 503.6620, L501.5425, L501.2450, L500.4050, L100.0500 ####[facility] [address] [place], [address] RBC (Bld) [#/Vol] 4.13 10*6/uL Low 4.2-5.4 [facility] Comment on above: Performed By: #### L 503.6620, L501.5425, L501.2450, L500.4050, L100.0500 ####[facility] [address] [place], [address] RDW SD 46.5 fl High 35.1-43.9 [facility] Comment on above: Performed By: #### L 503.6620, L501.5425, L501.2450, L500.4050, L100.0500 ####[facility] [address] [place], [address] WBC (Bld) [#/Vol] 9.3 10*3/uL Normal 4.4-11.0 [facility] Comment on above: Performed By: #### L 503.6620, L501.5425, L501.2450, L500.4050, L100.0500 ####[facility] [address] [place], [address] CTA Chest W/WO Contraston CTA Chest W/WO Contrast Normal [facility] Chest 1 View (Portable)on Chest 1 View (Portable) Normal [facility] Comprehensive Metabolic Prof ilon 08-03-2024 Albumin [Mass/Vol] 3.5 g/dL Normal 3.2-5.0 [facility] Comment on above: Order Comment: 1Y Performed By: #### L 503.6620, L501.5425, L501.2450, L500.4050, L100.0500 ####[facility] [address] [place], [address] Albumin/Globulin [Mass ratio] 0.9 {ratio} Normal 0.9-2.4 [facility] Comment on above: Order Comment: 1Y Performed By: #### L 503.6620, L501.5425, L501.2450, L500.4050, L100.0500 ####[facility] [address] [place], [address] ALK P 82 U/L Normal 45-117 [facility] Comment on above: Order Comment: 1Y Performed By: #### L 503.6620, L501.5425, L501.2450, L500.4050, L100.0500 ####[facility] [address] [place], [address] ALT [Catalytic activity/Vol] 22 U/L Normal 13-56 [facility] Comment on above: Order Comment: 1Y Performed By: #### L 503.6620, L501.5425, L501.2450, L500.4050, L100.0500 ####[facility] [address] [place], [address] AST [Catalytic activity/Vol] 21 U/L Normal 15-37 [facility] Comment on above: Order Comment: 1Y Performed By: #### L 503.6620, L501.5425, L501.2450, L500.4050, L100.0500 ####[facility] [address] [place], [address] Bilirubin [Mass/Vol] 0.60 mg/dL Normal 0.20-1.00 [facility] Comment on above: Order Comment: 1Y Result Comment: For patients on eltrombopag therapy, use of Dimension [place] TBIL is not recommended. Performed By: #### L 503.6620, L501.5425, L501.2450, L500.4050, L100.0500 ####[facility] [address] [place], [address] BUN/CRE 12.8 RATIO Normal 10-20 [facility] Comment on above: Order Comment: 1Y Performed By: #### L 503.6620, L501.5425, L501.2450, L500.4050, L100.0500 ####[facility] [address] [place], [address] CA,Total 9.4 mg/dL Normal 8.5-10.1 [facility] Comment on above: Order Comment: 1Y Performed By: #### L 503.6620, L501.5425, L501.2450, L500.4050, L100.0500 ####[facility] [address] [place], [address] Chloride [Moles/Vol] 104 mmol/L Normal 98-107 [facility] Comment on above: Order Comment: 1Y Performed By: #### L 503.6620, L501.5425, L501.2450, L500.4050, L100.0500 ####[facility] [address] [place], [address] CO2 [Moles/Vol] 24.0 mmol/L Normal 21.0-32.0 [facility] Comment on above: Order Comment: 1Y Performed By: #### L 503.6620, L501.5425, L501.2450, L500.4050, L100.0500 ####[facility] [address] [place], [address] Creatinine [Mass/Vol] 1.09 mg/dL High 0.55-1.02 [facility] Comment on above: Order Comment: 1Y Result Comment: The validity of the calculated GFR GFRAA in patients over70 years has not been determined. Clinical correlation isessential. Performed By: #### L 503.6620, L501.5425, L501.2450, L500.4050, L100.0500 ####[facility] [address] [place], [address] ECRCL 37.08 ml/min Normal [facility] Comment on above: Order Comment: 1Y Performed By: #### L 503.6620, L501.5425, L501.2450, L500.4050, L100.0500 ####[facility] [address] [place], [address] EST GFR - AA 62 mL/min Normal >60 [facility] Comment on above: Order Comment: 1Y Result Comment: Afri can Pakistani GFR Calc Performed By: #### L 503.6620, L501.5425, L501.2450, L500.4050, L100.0500 ####[facility] [address] [place], [address] GAP 11 Normal 5-15 [facility] Comment on above: Order Comment: 1Y Performed By: #### L 503.6620, L501.5425, L501.2450, L500.4050, L100.0500 ####[facility] [address] [place], [address] GFR/1.73 sq M.predicted among non-blacks MDRD (S/P/Bld) [Vol rate/Area] 51 mL/min/{1.73_m2} Low >60 [facility] Comment on above: Order Comment: 1Y Result Comment: Non- GFR Calc Performed By: #### L 503.6620, L501.5425, L501.2450, L500.4050, L100.0500 ####[facility] [address] [place], [address] Globulin (S) [Mass/Vol] 4.1 g/dL Normal 2.2-4.2 [facility] Comment on above: Order Comment: 1Y Performed By: #### L 503.6620, L501.5425, L501.2450, L500.4050, L100.0500 ####[facility] [address] [place], [address] Glucose [Mass/Vol] 166 mg/dL High 74-106 [facility] [facility] Comment on above: Order Comment: 1Y Result Comment: Fast ing Glucose result greater than or equal to 126 mg/dLsuggests DIABETES MELLITUS per A.D.A. criteria. Performed By: #### L 503.6620, L501.5425, L501.2450, L500.4050, L100.0500 ####[facility] [address] [place], [address] Potassium [Moles/Vol] 3.4 mmol/L Low 3.5-5.1 [facility] Comment on above: Order Comment: 1Y Performed By: #### L 503.6620, L501.5425, L501.2450, L500.4050, L100.0500 ####[facility] [address] [place], [address] Sodium [Moles/Vol] 139 mmol/L Normal 136-145 [facility] Comment on above: Order Comment: 1Y Performed By: #### L 503.6620, L501.5425, L501.2450, L500.4050, L100.0500 ####[facility] [address] [place], [address] T PROT 7.6 g/dL Normal 6.4-8.2 [facility] Comment on above: Order Comment: 1Y Performed By: #### L 503.6620, L501.5425, L501.2450, L500.4050, L100.0500 ####[facility] [address] [place], [address] Urea nitrogen [Mass/Vol] 14 mg/dL Normal 7-18 [facility] Comment on above: Order Comment: 1Y Performed By: #### L 503.6620, L501.5425, L501.2450, L500.4050, L100.0500 ####[facility] [address] [place], [address] Emergency Department Summary on 08-03-2024 Emergency Department Summary Normal [facility] H AND P Exam - Hospitaliston 08-03-2024 H&P Exam - Hospitalist Normal [facility] L501.4020on 08-03-2024 TROPONIN-I HS 38 pg/mL Normal 3.0-54.0 [facility] Comment on above: Result Comment: Leticia em Note: New Test Units and Gender Specific Reference Ranges. For more information see Policy Stat Procedure [place] High Sensitivity Troponin (TNIH) and attachments. Performed By: #### L 501.4020 ####[facility] [address] [place], [address] L501.5425on 08-03-2024 TROPONIN-I HS 35 pg/mL Normal 3.0-54.0 [facility] Comment on above: Order Comment: 1Y Result Comment: Leticia em Note: New Test Units and Gender Specific Reference Ranges. For more information see Policy Stat Procedure [place] High Sensitivity Troponin (TNIH) and attachments. Performed By: #### L 503.6620, L501.5425, L501.2450, L500.4050, L100.0500 ####[facility] [address] [place], [address] Legionella Antigen Urineon 1 10-04-2023 LEGU Normal [facility] Comment on above: Performed By: #### M 300.4500, M300.4600 ####[facility] [address] [place], [address] Lipaseon 08-03-2024 Lipase [Catalytic activity/Vol] 18 U/L Normal 13-75 [facility] Comment on above: Order Comment: 1Y Result Comment: Leticia em note:LIPASE revised reference range effective 22.New Lipase methodology. Expected to produce lower valuesthan the previous assay method.NEW Reference Range: 13 - 75 U/L Performed By: #### L 503.6620, L501.5425, L501.2450, L500.4050, L100.0500 ####[facility] [address] [place], [address] M100.678on 08-03-2024 M100.678 Pending SARS-CoV-2 (COVID 19) Negative INFLUENZA A Negative INFLUENZA B Negative RSV PCR Negative Normal [facility] Comment on above: Performed By: #### M 100.678, L400.0001 ####[facility] [address] [place], [address] Magnesiumon 08-03-2024 Magnesium [Mass/Vol] 1.7 mg/dL Normal 1.6-2.6 [facility] Comment on above: Order Comment: Comme nts: may add to ED labs Performed By: #### L 501.5200, L509.7000 ####[facility] [address] [place], [place], [address] Office Visit Reporton 2023 Office Visit Report Normal [facility] Procalcitoninon 08-03-2024 Procalcitonin 0.06 ng/mL Normal 0.00-0.09 [facility] Comment on above: Result Comment: A pr [...] obtained. Performed By: #### L 501.5200, L509.7000 ####[facility] [address] [place], [place], [address] Strep pneumoniae Antig(UR,CS F)on 08-03-2024 STPAG Normal [facility] Comment on above: Performed By: #### M 300.4500, M300.4600 ####[facility] [address] [place], [place], [id number] Urinalysis, Completeon 08-03 BACTERIA 2+ /hpf Normal None Seen [facility] Comment on above: Order Comment: CLEAN CATCH Performed By: #### M 100.678, L400.0001 ####[facility] [address] [place], [address] EPI,SQUAMOUS 5-10 SEEN Normal 5-10 [facility] Comment on above: Order Comment: CLEAN CATCH Performed By: #### M 100.678, L400.0001 ####[facility] [address] [place], [address] Mucus Ql (Urine sed) 2+ /hpf Normal [facility] Comment on above: Order Comment: CLEAN CATCH Performed By: #### M 100.678, L400.0001 ####[facility] [address] [place], [address] RBC 0-5 SEEN Normal 0-5 [facility] Comment on above: Order Comment: CLEAN CATCH Performed By: #### M 100.678, L400.0001 ####[facility] [address] [place], [address] WBC 10-25 SEEN Normal 0-5 [facility] Comment on above: Order Comment: CLEAN CATCH Performed By: #### M 100.678, L400.0001 ####[facility] [address] [place], [address] Culture, Blood (WB)on 2023 CUB Blood cultures x2 fr om two different sites No growth in 5 days. Normal [facility] Comment on above: Performed By: #### M 200.1000 ####[facility] [address] [place], [address] CNOVon 07-15-2024 CNOV Office Visit (INTMWS ) ANA IVORY ([id number]) 1940 F Date Time Provider Department 07/15/24 11:20 AM ALICIA BLOUNT INTMWS During your visit today, we recorded the following information about you: Temperature Pulse Respiration Blood pressure 97.8 degrees 82/minute 16/minute 132/68 Weight 71.6 kg Alicia Blount MD 08/11/2024 1:27 AM Signed Transitional Care Management [facility] Eligibility Documentation Program: Transitional Care Management Status: [...] a 84 year old lady here for [facility] hospital follow up appointment. Ana [...] has upcoming lab work scheduled with her strip polisher, Dr. Munguia. She also reports frequent urination but denies symptoms of diabetic ketoacidosis. Ana uses a Ventolin inhaler for bronchiectasis and requests a refill. She reports that she is supposed to use it three times a day, six puffs each time, but is currently out of the medication. She has an appointment with her land checker, Dr. Chanel, in August. PAST MEDICAL HISTORY Diagnosis Date Acute gastritis without mention of hemorrhage 10/31/2007 Adverse reaction to non-steroidal anti-inflammatory drug (NSAID) 03/28/2010 KATHERIN positive 03/04/2014 Gonzales's esophagus C. difficile diarrhea 10/18/2011 Cataract 04/17/2013 [facility], Dr. Dada Rodríguez. Mild cataract in L eye- no need for cataract surgery at this time. Continue to follow up the cataract. 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 At this time, we anticipate that [...] [facility] Return [facility] on Sunday11/18/[address] removal . Enlargement of lymph nodes 12/20/2006 Esophagitis, (more content not included)... Normal [facility] Urine Cultureon 07-13-2024 URC Yeast, not Shanna a lbicans [place] Count 80,000-100,000 Normal [facility] Comment on above: Performed By: #### M 100.2200 ####[facility] [address] [place], [address] Basic Metabolic Profile (BMP )on 07-12-2024 BUN/CRE 18.8 RATIO Normal 10-20 [facility] Comment on above: Performed By: #### L 100.0100, L500.2500 ####[facility] [address] [place], [address] CA,Total 8.9 mg/dL Normal 8.5-10.1 [facility] Comment on above: Performed By: #### L 100.0100, L500.2500 ####[facility] [address] [place], [address] Chloride [Moles/Vol] 104 mmol/L Normal 98-107 [facility] Comment on above: Performed By: #### L 100.0100, L500.2500 ####[facility] [address] [place], [address] CO2 [Moles/Vol] 24.0 mmol/L Normal 21.0-32.0 [facility] Comment on above: Performed By: #### L 100.0100, L500.2500 ####[facility] [address] [place], [address] Creatinine [Mass/Vol] 0.80 mg/dL Normal 0.55-1.02 [facility] Comment on above: Result Comment: The validity of the calculated GFR GFRAA in patients over70 years has not been determined. Clinical correlation isessential. Performed By: #### L 100.0100, L500.2500 ####[facility] [address] [place], [address] ECRCL 50.89 ml/min Normal [facility] Comment on above: Performed By: #### L 100.0100, L500.2500 ####[facility] [address] [place], [address] EST GFR - AA 88 mL/min Normal >60 [facility] Comment on above: Result Comment: Afri can Pakistani GFR Calc Performed By: #### L 100.0100, L500.2500 ####[facility] [address] [place], [address] GAP 8 Normal 5-15 [facility] Comment on above: Performed By: #### L 100.0100, L500.2500 ####[facility] [address] [place], [address] GFR/1.73 sq M.predicted among non-blacks MDRD (S/P/Bld) [Vol rate/Area] 73 mL/min/{1.73_m2} Normal >60 [facility] Comment on above: Result Comment: Non- GFR Calc Performed By: #### L 100.0100, L500.2500 ####[facility] [address] [place], [address] Glucose [Mass/Vol] 290 mg/dL High 74-106 [facility] Comment on above: Result Comment: Gluc ose result greater than or equal to 200 mg/dLsuggests DIABETES MELLITUS per A.D.A. criteria. Performed By: #### L 100.0100, L500.2500 ####[facility] [address] [place], [address] Potassium [Moles/Vol] 3.9 mmol/L Normal 3.5-5.1 [facility] Comment on above: Performed By: #### L 100.0100, L500.2500 ####[facility] [address] [place], [address] Sodium [Moles/Vol] 136 mmol/L Normal 136-145 [facility] Comment on above: Performed By: #### L 100.0100, L500.2500 ####[facility] [address] [place], [address] Urea nitrogen [Mass/Vol] 15 mg/dL Normal 7-18 [facility] Comment on above: Performed By: #### L 100.0100, L500.2500 ####[facility] [address] [place], [address] Bedside Glucoseon 07-12-2024 FINGERSTICK GLU 293 mg/dL High 74-106 [facility] Comment on above: Result Comment: OLGA GOMEZ OF PATIENT CARE PER NURSING PROTOCOL Performed By: #### L 501.080 ####[facility] [address] [place], [address] CBC W/Diff, Automatedon 06-15 0 Absolute Lymph 1.64 X10 3/uL Normal 0.83-4.51 [facility] Comment on above: Performed By: #### L 100.0100, L500.2500 ####[facility] [address] [place], [address] Absolute Neut 6.1 X10 3/uL Normal 2.0-7.7 [facility] Comment on above: Performed By: #### L 100.0100, L500.2500 ####[facility] [address] [place], [address] Basophils/100 WBC (Bld) 0.6 % Normal 0-1 [facility] Comment on above: Performed By: #### L 100.0100, L500.2500 ####[facility] [address] [place], [address] Eosinophils/100 WBC (Bld) 2.9 % Normal 0-5 [facility] Comment on above: Performed By: #### L 100.0100, L500.2500 ####[facility] [address] [place], [address] Erythrocyte distribution width (RBC) [Ratio] 13.2 % Normal 11.6-14.6 [facility] Comment on above: Performed By: #### L 100.0100, L500.2500 ####[facility] [address] [place], [address] Hematocrit (Bld) [Volume fraction] 35.3 % Low 37-47 [facility] Comment on above: Performed By: #### L 100.0100, L500.2500 ####[facility] [address] [place], [address] Hemoglobin (Bld) [Mass/Vol] 12.2 g/dL Normal 12.0-15.0 [facility] Comment on above: Performed By: #### L 100.0100, L500.2500 ####[facility] [address] [place], [address] IG% 0.700 Normal 0.0-0.9 [facility] Comment on above: Result Comment: IG% - Immature Granulocytes (promyelocytes, myelocytes andmetamyelocytes) > 1% indicates that a LEFT SHIFT is Present. Performed By: #### L 100.0100, L500.2500 ####[facility] [address] [place], [address] Lymphocytes/100 WBC (Bld) 18.2 % Low 19-41 [facility] Comment on above: Performed By: #### L 100.0100, L500.2500 ####[facility] [address] [place], [address] MCH (RBC) [Entitic mass] 32.4 pg High 27.0-32.0 [facility] Comment on above: Performed By: #### L 100.0100, L500.2500 ####[facility] [address] [place], [address] MCHC (RBC) [Mass/Vol] 34.6 g/dL Normal 32-36 [facility] Comment on above: Performed By: #### L 100.0100, L500.2500 ####[facility] [address] [place], [address] MCV (RBC) [Entitic vol] 93.6 fL Normal 81-99 [facility] Comment on above: Performed By: #### L 100.0100, L500.2500 ####[facility] [address] [place], [address] Monocytes/100 WBC (Bld) 9.7 % Normal 0-10 [facility] Comment on above: Performed By: #### L 100.0100, L500.2500 ####[facility] [address] [place], [address] Neutrophils/100 WBC (Bld) 67.9 % Normal 47-70 [facility] Comment on above: Performed By: #### L 100.0100, L500.2500 ####[facility] [address] [place], [address] Nucleated RBC (Bld) [#/Vol] 0 10*3/uL Normal 0-5 [facility] Comment on above: Performed By: #### L 100.0100, L500.2500 ####[facility] [address] [place], [address] Platelet mean volume (Bld) [Entitic vol] 9.7 fL Normal 6.2-12.0 [facility] Comment on above: Performed By: #### L 100.0100, L500.2500 ####[facility] [address] [place], [address] Platelets (Bld) [#/Vol] 232 10*3/uL Normal 150-450 [facility] Comment on above: Performed By: #### L 100.0100, L500.2500 ####[facility] [address] [place], [address] RBC (Bld) [#/Vol] 3.77 10*6/uL Low 4.2-5.4 [facility] Comment on above: Performed By: #### L 100.0100, L500.2500 ####[facility] [address] [place], [address] RDW SD 45.0 fl High 35.1-43.9 [facility] Comment on above: Performed By: #### L 100.0100, L500.2500 ####[facility] [address] [place], [address] WBC (Bld) [#/Vol] 9.0 10*3/uL Normal 4.4-11.0 [facility] Comment on above: Performed By: #### L 100.0100, L500.2500 ####[facility] [address] [place], [address] Discharge Instructionon 11 Discharge Instruction Normal [facility] Basic Metabolic Profile (BMP )on 07-11-2024 BUN/CRE 17.2 RATIO Normal 10-20 [facility] Comment on above: Performed By: #### L 100.0500, L503.6005, L500.2500 ####[facility] [address] [place], [address] CA,Total 9.0 mg/dL Normal 8.5-10.1 [facility] Comment on above: Performed By: #### L 100.0500, L503.6005, L500.2500 ####[facility] [address] [place], [address] Chloride [Moles/Vol] 105 mmol/L Normal 98-107 [facility] Comment on above: Performed By: #### L 100.0500, L503.6005, L500.2500 ####[facility] [address] [place], [address] CO2 [Moles/Vol] 23.0 mmol/L Normal 21.0-32.0 [facility] Comment on above: Performed By: #### L 100.0500, L503.6005, L500.2500 ####[facility] [address] [place], [address] Creatinine [Mass/Vol] 0.99 mg/dL Normal 0.55-1.02 [facility] Comment on above: Result Comment: The validity of the calculated GFR GFRAA in patients over70 years has not been determined. Clinical correlation isessential. Performed By: #### L 100.0500, L503.6005, L500.2500 ####[facility] [address] [place], [address] ECRCL 41.12 ml/min Normal [facility] Comment on above: Performed By: #### L 100.0500, L503.6005, L500.2500 ####[facility] [address] [place], [address] EST GFR - AA 69 mL/min Normal >60 [facility] Comment on above: Result Comment: Afri can Pakistani GFR Calc Performed By: #### L 100.0500, L503.6005, L500.2500 ####[facility] [address] [place], [address] GAP 8 Normal 5-15 [facility] Comment on above: Performed By: #### L 100.0500, L503.6005, L500.2500 ####[facility] [address] [place], [address] GFR/1.73 sq M.predicted among non-blacks MDRD (S/P/Bld) [Vol rate/Area] 57 mL/min/{1.73_m2} Low >60 [facility] Comment on above: Result Comment: Non- GFR Calc Performed By: #### L 100.0500, L503.6005, L500.2500 ####[facility] [address] [place], [address] Glucose [Mass/Vol] 228 mg/dL High 74-106 [facility] Comment on above: Result Comment: Gluc ose result greater than or equal to 200 mg/dLsuggests DIABETES MELLITUS per A.D.A. criteria. Performed By: #### L 100.0500, L503.6005, L500.2500 ####[facility] [address] [place], [address] Potassium [Moles/Vol] 4.2 mmol/L Normal 3.5-5.1 [facility] Comment on above: Performed By: #### L 100.0500, L503.6005, L500.2500 ####[facility] [address] [place], [address] Sodium [Moles/Vol] 136 mmol/L Normal 136-145 [facility] Comment on above: Performed By: #### L 100.0500, L503.6005, L500.2500 ####[facility] [address] [place], [address] Urea nitrogen [Mass/Vol] 17 mg/dL Normal 7-18 [facility] Comment on above: Performed By: #### L 100.0500, L503.6005, L500.2500 ####[facility] [address] [place], [address] Bedside Glucoseon 07-11-2024 FINGERSTICK GLU 262 mg/dL High [address] [place] [address] Comment on above: Result Comment: OLGA GOMEZ OF PATIENT CARE PER NURSING PROTOCOL Performed By: #### L 501.080 ####[facility] [address] [place], [address] FINGERSTICK GLU 220 mg/dL High -[address] [place] [address] Comment on above: Result Comment: OLGA GEMENT OF PATIENT CARE PER NURSING PROTOCOL Performed By: #### L 501.080 ####[facility] [address] [place], [address] FINGERSTICK GLU 351 mg/dL High 74-106 [facility] Comment on above: Result Comment: OLGA GEMENT OF PATIENT CARE PER NURSING PROTOCOL Performed By: #### L 501.080 ####[facility] [address] [place], [address] FINGERSTICK GLU 233 mg/dL High 74-106 [facility] Comment on above: Result Comment: OLGA GEMENT OF PATIENT CARE PER NURSING PROTOCOL Performed By: #### L 501.080 ####[facility] [address] [place], [address] CBC-Complete Blood Cnt No Di ffon 07-11-2024 Erythrocyte distribution width (RBC) [Ratio] 13.3 % Normal 11.6-14.6 [facility] Comment on above: Performed By: #### L 100.0500, L503.6005, L500.2500 ####[facility] [address] [place], [address] Hematocrit (Bld) [Volume fraction] 34.5 % Low 37-47 [facility] Comment on above: Performed By: #### L 100.0500, L503.6005, L500.2500 ####[facility] [address] [place], [address] Hemoglobin (Bld) [Mass/Vol] 11.7 g/dL Low 12.0-15.0 [facility] Comment on above: Performed By: #### L 100.0500, L503.6005, L500.2500 ####[facility] [address] [place], [address] MCH (RBC) [Entitic mass] 32.0 pg Normal 27.0-32.0 [facility] Comment on above: Performed By: #### L 100.0500, L503.6005, L500.2500 ####[facility] [address] [place], [address] MCHC (RBC) [Mass/Vol] 33.9 g/dL Normal 32-36 [facility] Comment on above: Performed By: #### L 100.0500, L503.6005, L500.2500 ####[facility] [address] [place], [address] MCV (RBC) [Entitic vol] 94.3 fL Normal 81-99 [facility] Comment on above: Performed By: #### L 100.0500, L503.6005, L500.2500 ####[facility] [address] [place], [address] Platelet mean volume (Bld) [Entitic vol] 9.8 fL Normal 6.2-12.0 [facility] Comment on above: Performed By: #### L 100.0500, L503.6005, L500.2500 ####[facility] [address] [place], [address] Platelets (Bld) [#/Vol] 260 10*3/uL Normal 150-450 [facility] Comment on above: Performed By: #### L 100.0500, L503.6005, L500.2500 ####[facility] [address] [place], [address] RBC (Bld) [#/Vol] 3.66 10*6/uL Low 4.2-5.4 [facility] Comment on above: Performed By: #### L 100.0500, L503.6005, L500.2500 ####[facility] [address] [place], [address] RDW SD 46.2 fl High 35.1-43.9 [facility] Comment on above: Performed By: #### L 100.0500, L503.6005, L500.2500 ####[facility] [address] [place], [address] WBC (Bld) [#/Vol] 11.9 10*3/uL High 4.4-11.0 [facility] Comment on above: Performed By: #### L 100.0500, L503.6005, L500.2500 ####[facility] [address] [place], [address] Echo Complete W/ Contraston 07-11-2024 Echo Complete W/ Contrast Normal [facility] Lactic Acidon 07-11-2024 Lactate [Moles/Vol] 1.6 mmol/L Normal 0.4-1.9 [facility] Comment on above: Order Comment: Y Performed By: #### L 100.0500, L503.6005, L500.2500 ####[facility] [address] [place], [address] Lactate [Moles/Vol] 2.5 mmol/L Invalid Interpretation Code 0.4-1.9 [facility] Comment on above: Result Comment: Crit ical Result(s) Called at: 01:32:32 07/11/2024 by: NoahBurns. marianela Welch RN PCU. Results read back by same. Performed By: #### L 503.6005 ####[facility] [address] [place], [address] Abdomen/Pelvis without Conto n 07-10-2024 Abdomen/Pelvis without Cont Normal [facility] BNP,B-Type NATRIURETIC PEPTI Genoveva 07-10-2024 Natriuretic peptide B (Bld) [Mass/Vol] 36.3 pg/mL Normal 0-100 [facility] Comment on above: Performed By: #### L 500.4050, L503.6005, L100.0100, L501.2450, L503.6620, L501.5425 ####[facility] [address] [place], [address] Bedside Glucoseon 07-10-2024 FINGERSTICK GLU 115 mg/dL High 74-106 [facility] Comment on above: Result Comment: OLGA GOMEZ OF PATIENT CARE PER NURSING PROTOCOL Performed By: #### L 501.080 ####[facility] [address] [place], [address] Brain/Head without Contrasto n 07-10-2024 Brain/Head without Contrast Normal [facility] CBC W/Diff, Automatedon - Absolute Lymph 1.64 X10 3/uL Normal 0.83-4.51 [facility] Comment on above: Performed By: #### L 500.4050, L503.6005, L100.0100, L501.2450, L503.6620, L501.5425 ####[facility] [address] [place], [address] Absolute Neut 12.4 X10 3/uL High 2.0-7.7 [facility] Comment on above: Performed By: #### L 500.4050, L503.6005, L100.0100, L501.2450, L503.6620, L501.5425 ####[facility] [address] [place], [address] Basophils/100 WBC (Bld) 0.5 % Normal 0-1 [facility] Comment on above: Performed By: #### L 500.4050, L503.6005, L100.0100, L501.2450, L503.6620, L501.5425 ####[facility] [address] [place], [address] Eosinophils/100 WBC (Bld) 1.1 % Normal 0-5 [facility] Comment on above: Performed By: #### L 500.4050, L503.6005, L100.0100, L501.2450, L503.6620, L501.5425 ####[facility] [address] [place], [address] Erythrocyte distribution width (RBC) [Ratio] 13.3 % Normal 11.6-14.6 [facility] Comment on above: Performed By: #### L 500.4050, L503.6005, L100.0100, L501.2450, L503.6620, L501.5425 ####[facility] [address] [place], [address] Hematocrit (Bld) [Volume fraction] 41.0 % Normal 37-47 [facility] Comment on above: Performed By: #### L 500.4050, L503.6005, L100.0100, L501.2450, L503.6620, L501.5425 ####[facility] [address] [place], [address] Hemoglobin (Bld) [Mass/Vol] 14.1 g/dL Normal 12.0-15.0 [facility] Comment on above: Performed By: #### L 500.4050, L503.6005, L100.0100, L501.2450, L503.6620, L501.5425 ####[facility] [address] [place], [address] IG% 0.400 Normal 0.0-0.9 [facility] Comment on above: Result Comment: IG% - Immature Granulocytes (promyelocytes, myelocytes andmetamyelocytes) > 1% indicates that a LEFT SHIFT is Present. Performed By: #### L 500.4050, L503.6005, L100.0100, L501.2450, L503.6620, L501.5425 ####[facility] [address] [place], [address] Lymphocytes/100 WBC (Bld) 10.5 % Low 19-41 [facility] Comment on above: Performed By: #### L 500.4050, L503.6005, L100.0100, L501.2450, L503.6620, L501.5425 ####[facility] [address] [place], [address] MCH (RBC) [Entitic mass] 32.0 pg Normal 27.0-32.0 [facility] Comment on above: Performed By: #### L 500.4050, L503.6005, L100.0100, L501.2450, L503.6620, L501.5425 ####[facility] [address] [place], [address] MCHC (RBC) [Mass/Vol] 34.4 g/dL Normal 32-36 [facility] Comment on above: Performed By: #### L 500.4050, L503.6005, L100.0100, L501.2450, L503.6620, L501.5425 ####[facility] [address] [place], [address] MCV (RBC) [Entitic vol] 93.2 fL Normal 81-99 [facility] Comment on above: Performed By: #### L 500.4050, L503.6005, L100.0100, L501.2450, L503.6620, L501.5425 ####[facility] [address] [place], [address] Monocytes/100 WBC (Bld) 8.1 % Normal 0-10 [facility] Comment on above: Performed By: #### L 500.4050, L503.6005, L100.0100, L501.2450, L503.6620, L501.5425 ####[facility] [address] [place], [address] Neutrophils/100 WBC (Bld) 79.4 % High 47-70 [facility] Comment on above: Performed By: #### L 500.4050, L503.6005, L100.0100, L501.2450, L503.6620, L501.5425 ####[facility] [address] [place], [address] Nucleated RBC (Bld) [#/Vol] 0 10*3/uL Normal 0-5 [facility] Comment on above: Performed By: #### L 500.4050, L503.6005, L100.0100, L501.2450, L503.6620, L501.5425 ####[facility] [address] [place], [address] Platelet mean volume (Bld) [Entitic vol] 9.6 fL Normal 6.2-12.0 [facility] Comment on above: Performed By: #### L 500.4050, L503.6005, L100.0100, L501.2450, L503.6620, L501.5425 ####[facility] [address] [place], [address] Platelets (Bld) [#/Vol] 311 10*3/uL Normal 150-450 [facility] Comment on above: Performed By: #### L 500.4050, L503.6005, L100.0100, L501.2450, L503.6620, L501.5425 ####[facility] [address] [place], [address] RBC (Bld) [#/Vol] 4.40 10*6/uL Normal 4.2-5.4 [facility] Comment on above: Performed By: #### L 500.4050, L503.6005, L100.0100, L501.2450, L503.6620, L501.5425 ####[facility] [address] [place], [address] RDW SD 45.1 fl High 35.1-43.9 [facility] Comment on above: Performed By: #### L 500.4050, L503.6005, L100.0100, L501.2450, L503.6620, L501.5425 ####[facility] [address] [place], [address] WBC (Bld) [#/Vol] 15.6 10*3/uL High 4.4-11.0 [facility] Comment on above: Performed By: #### L 500.4050, L503.6005, L100.0100, L501.2450, L503.6620, L501.5425 ####[facility] [address] [place], [address] Chest 1 View (Portable)on Chest 1 View (Portable) Normal [facility] Comprehensive Metabolic Prof ilon 07-10-2024 Albumin [Mass/Vol] 3.8 g/dL Normal 3.2-5.0 [facility] Comment on above: Order Comment: 1Y Performed By: #### L 500.4050, L503.6005, L100.0100, L501.2450, L503.6620, L501.5425 ####[facility] [address] [place], [address] Albumin/Globulin [Mass ratio] 1.0 {ratio} Normal 0.9-2.4 [facility] Comment on above: Order Comment: 1Y Performed By: #### L 500.4050, L503.6005, L100.0100, L501.2450, L503.6620, L501.5425 ####[facility] [address] [place], [address] ALK P 101 U/L Normal 45-117 [facility] Comment on above: Order Comment: 1Y Performed By: #### L 500.4050, L503.6005, L100.0100, L501.2450, L503.6620, L501.5425 ####[facility] [address] [place], [address] ALT [Catalytic activity/Vol] 21 U/L Normal 13-56 [facility] Comment on above: Order Comment: 1Y Performed By: #### L 500.4050, L503.6005, L100.0100, L501.2450, L503.6620, L501.5425 ####[facility] [address] [place], [address] AST [Catalytic activity/Vol] 16 U/L Normal 15-37 [facility] Comment on above: Order Comment: 1Y Performed By: #### L 500.4050, L503.6005, L100.0100, L501.2450, L503.6620, L501.5425 ####[facility] [address] [place], [address] Bilirubin [Mass/Vol] 0.30 mg/dL Normal 0.20-1.00 [facility] Comment on above: Order Comment: 1Y Result Comment: For patients on eltrombopag therapy, use of Dimension [place] TBIL is not recommended. Performed By: #### L 500.4050, L503.6005, L100.0100, L501.2450, L503.6620, L501.5425 ####[facility] [address] [place], [address] BUN/CRE 17.6 RATIO Normal 10-20 [facility] Comment on above: Order Comment: 1Y Performed By: #### L 500.4050, L503.6005, L100.0100, L501.2450, L503.6620, L501.5425 ####[facility] [address] [place], [address] CA,Total 10.0 mg/dL Normal 8.5-10.1 [facility] Comment on above: Order Comment: 1Y Performed By: #### L 500.4050, L503.6005, L100.0100, L501.2450, L503.6620, L501.5425 ####[facility] [address] [place], [address] Chloride [Moles/Vol] 104 mmol/L Normal 98-107 [facility] Comment on above: Order Comment: 1Y Performed By: #### L 500.4050, L503.6005, L100.0100, L501.2450, L503.6620, L501.5425 ####[facility] [address] [place], [address] CO2 [Moles/Vol] 29.0 mmol/L Normal 21.0-32.0 [facility] Comment on above: Order Comment: 1Y Performed By: #### L 500.4050, L503.6005, L100.0100, L501.2450, L503.6620, L501.5425 ####[facility] [address] [place], [address] Creatinine [Mass/Vol] 0.96 mg/dL Normal 0.55-1.02 [facility] Comment on above: Order Comment: 1Y Result Comment: The validity of the calculated GFR GFRAA in patients over70 years has not been determined. Clinical correlation isessential. Performed By: #### L 500.4050, L503.6005, L100.0100, L501.2450, L503.6620, L501.5425 ####[facility] [address] [place], [address] ECRCL 42.72 ml/min Normal [facility] Comment on above: Order Comment: 1Y Performed By: #### L 500.4050, L503.6005, L100.0100, L501.2450, L503.6620, L501.5425 ####[facility] [address] [place], [address] EST GFR - AA 71 mL/min Normal >60 [facility] Comment on above: Order Comment: 1Y Result Comment: Afri can Pakistani GFR Calc Performed By: #### L 500.4050, L503.6005, L100.0100, L501.2450, L503.6620, L501.5425 ####[facility] [address] [place], [address] GAP 7 Normal 5-15 [facility] Comment on above: Order Comment: 1Y Performed By: #### L 500.4050, L503.6005, L100.0100, L501.2450, L503.6620, L501.5425 ####[facility] [address] [place], [address] GFR/1.73 sq M.predicted among non-blacks MDRD (S/P/Bld) [Vol rate/Area] 59 mL/min/{1.73_m2} Low >60 [facility] Comment on above: Order Comment: 1Y Result Comment: Non- GFR Calc Performed By: #### L 500.4050, L503.6005, L100.0100, L501.2450, L503.6620, L501.5425 ####[facility] [address] [place], [address] Globulin (S) [Mass/Vol] 3.9 g/dL Normal 2.2-4.2 [facility] Comment on above: Order Comment: 1Y Performed By: #### L 500.4050, L503.6005, L100.0100, L501.2450, L503.6620, L501.5425 ####[facility] [address] [place], [address] Glucose [Mass/Vol] 136 mg/dL High 74-106 [facility] Comment on above: Order Comment: 1Y Result Comment: Fast ing Glucose result greater than or equal to 126 mg/dLsuggests DIABETES MELLITUS per A.D.A. criteria. Performed By: #### L 500.4050, L503.6005, L100.0100, L501.2450, L503.6620, L501.5425 ####[facility] [address] [place], [address] Potassium [Moles/Vol] 4.1 mmol/L Normal 3.5-5.1 [facility] Comment on above: Order Comment: 1Y Performed By: #### L 500.4050, L503.6005, L100.0100, L501.2450, L503.6620, L501.5425 ####[facility] [address] [place], [address] Sodium [Moles/Vol] 140 mmol/L Normal 136-145 [facility] Comment on above: Order Comment: 1Y Performed By: #### L 500.4050, L503.6005, L100.0100, L501.2450, L503.6620, L501.5425 ####[facility] [address] [place], [address] T PROT 7.7 g/dL Normal 6.4-8.2 [facility] Comment on above: Order Comment: 1Y Performed By: #### L 500.4050, L503.6005, L100.0100, L501.2450, L503.6620, L501.5425 ####[facility] [address] [place], [address] Urea nitrogen [Mass/Vol] 17 mg/dL Normal 7-18 [facility] Comment on above: Order Comment: 1Y Performed By: #### L 500.4050, L503.6005, L100.0100, L501.2450, L503.6620, L501.5425 ####[facility] [address] [place], [address] Emergency Department Summary on 07-10-2024 Emergency Department Summary Normal [facility] H AND P Exam - Hospitaliston 07-10-2024 H&P Exam - Hospitalist Normal [facility] L501.4020on 07-10-2024 TROPONIN-I HS 6 pg/mL Normal 3.0-54.0 [facility] Comment on above: Result Comment: Plea se Note: New Test Units and Gender Specific Reference Ranges. For more information see Policy Stat Procedure [place] High Sensitivity Troponin (TNIH) and attachments. Performed By: #### L 501.4020 ####[facility] [address] [place], [address] L501.5425on 07-10-2024 TROPONIN-I HS 6 pg/mL Normal 3.0-54.0 [facility] Comment on above: Order Comment: 1Y Result Comment: Plea se Note: New Test Units and Gender Specific Reference Ranges. For more information see Policy Stat Procedure [place] High Sensitivity Troponin (TNIH) and attachments. Performed By: #### L 500.4050, L503.6005, L100.0100, L501.2450, L503.6620, L501.5425 ####[facility] [address] [place], [place], [address] Lactic Acidon 07-10-2024 Lactate [Moles/Vol] 2.4 mmol/L Invalid Interpretation Code 0.4-1.9 [facility] Comment on above: Order Comment: Y Result Comment: Crit ical Result(s) Called at: 21:29:52 07/10/2024 by: CYNDY. Results read back by Wolf Stoner Performed By: #### L 503.6005 ####[facility] [address] [place], [place], [address] Lactate [Moles/Vol] 2.5 mmol/L Invalid Interpretation Code 0.4-1.9 [facility] Comment on above: Order Comment: Y Result Comment: Crit ical Result(s) Called at: 18:11:29 07/10/2024 by: CYNDY. Results read back by Tierra Dozier Performed By: #### L 500.4050, L503.6005, L100.0100, L501.2450, L503.6620, L501.5425 ####[facility] [address] [place], [address] Lipaseon 07-10-2024 Lipase [Catalytic activity/Vol] 14 U/L Normal 13-75 [facility] Comment on above: Order Comment: 1Y Result Comment: Leticia em note:LIPASE revised reference range effective 22.New Lipase methodology. Expected to produce lower valuesthan the previous assay method.NEW Reference Range: 13 - 75 U/L Performed By: #### L 500.4050, L503.6005, L100.0100, L501.2450, L503.6620, L501.5425 ####[facility] [address] [place], [address] M100.678on 07-10-2024 M100.678 Pending SARS-CoV-2 (COVID 19) Negative INFLUENZA A Negative INFLUENZA B Negative RSV PCR Negative Normal [facility] Comment on above: Performed By: #### M 100.678 ####[facility] [address] [place], [address] Urinalysis, Completeon 07-10 EPI,SQUAMOUS 0-5 SEEN Normal 5-10 [facility] Comment on above: Order Comment: CLEAN CATCH Performed By: #### L 400.0001 ####[facility] [address] [place], [address] RBC 0-5 SEEN Normal 0-5 [facility] Comment on above: Order Comment: CLEAN CATCH Performed By: #### L 400.0001 ####[facility] [address] [place], [address] WBC 5-10 SEEN Normal 0-5 [facility] Comment on above: Order Comment: CLEAN CATCH Performed By: #### L 400.0001 ####[facility] [address] [place], [address] YEAST 1+ /hpf Normal None Seen [facility] Comment on above: Order Comment: CLEAN CATCH Performed By: #### L 400.0001 ####[facility] [address] [place], [address] BACTERIA 0 SEEN Normal None Seen [facility] Comment on above: Order Comment: CLEAN CATCH Performed By: #### L 400.0001 ####[facility] [address] [place], [address] Mucus Ql (Urine sed) 0 SEEN Normal [facility] Comment on above: Order Comment: CLEAN CATCH Performed By: #### L 400.0001 ####[facility] [address] [place], [address] Endocrinology Visit Reporton 07-01-2024 Endocrinology Visit Report Normal [facility] Venous Duplex US - Rick Extre mon 06-23-2024 Venous Duplex US - Rick Extrem Normal [facility] Office Visit Reporton 2023 Office Visit Report Normal [facility] CNOVon 05-27-2024 CNOV Office Visit (INTMWS ) ANA IVORY ([id number]) 1940 F Date Time Provider Department 05/27/24 10:00 AM ALICIA BLOUNT INTMWS During your visit today, we recorded the following information about you: Temperature Pulse Respiration Blood pressure 97.6 degrees 83/minute 16/minute 128/68 Weight 74.2 kg Alicia Blount MD 07/04/2024 5:59 PM Signed This note was created using NoteWriter. Subjective Ana Wheeler Claquin is a 84 year old female. Patient [...] esophagus C. difficile diarrhea 10/18/2011 Cataract 04/17/2013 [facility], Dr. Dada Rodríguez. Mild cataract in L eye- no need for cataract surgery at this time. Continue to follow up the cataract. 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 At this time, we anticipate that [...] bed, co (more content not included)... Normal [facility]20[facility] ANA IVORY ([id number]) 1940 F Date Time Provider Department 04/28/24 NURSE CARD ADMIN [facility] WSTR CAWSTR During your visit today, we recorded the [...] floor at Radiology: [address]; [place] [address] * If you need to cancel or reschedule this test or have any questions regarding this test, please call [phone]. Allergies As of Date: 04/28/2024 Noted Allergy [...] 12/29/2020 14 - Other: See Comments NEOSPORIN ([id number]* 2 - Rash Comments: blisters PIOGLITAZONE 12/29/2020 [...] at bedtime. (Dr. Genny funes) - Insulin [place], Disposable, (BD ULTRA-FINE FOZIA PEN NEEDLE) 32 gauge x 5/32 Use one needle (more content not included)... Normal [facility] XR Chest PA and Lateralon IMPRESSION: No acute radiographic abnormality. Acidity Tester: ABHILASH Transcribe Date/Time: Feb 12 2024 11:41A Dictated by : RAKESH MULLEN DO This examination was interpreted and the report reviewed and electronically signed by: RAKESH MULLEN DO on Feb 12 2024 11:44AM [facility] DIVISION OF RADIOLOGY * * *Final Report* [...] No acute finding. DIVISION OF RADIOLOGY Provider, [facility] - 02/12/2024 * * *Final [...] finding. IMPRESSION IMPRESSION: No acute radiographic abnormality. Acidity Tester: PSCB Transcribe Date/Time: Feb 12 2024 11:41A Dictated by : RAKESH MULLEN DO This examination was interpreted and the report reviewed and electronically signed by: RAKESH MULLEN DO on Feb 12 2024 11:44AM EST [facility] Radiology Study observation (narrative) Geraldine Tejeda XR Chest PA and LateralOrder ed By: Ccf Provider on 02-12-2024 [facility] ALBUMIN/CREATININE RATIO, UR INEon 02-01-2024 Albumin DL <= 20 mg/L (U) [Mass/Vol] mg/L mg/L [facility] Albumin/Creatinine (U) [Mass ratio] mg/g NINF - 30 mg/g [facility] Comment on above: Adult Male and Femal [...] 87.9 mg/dL 20.0 - 300.0 mg/dL [facility] ECG COMPLETEon 02-01-2024 Atrial Rate 87 BPM [facility] Calculated P Doerun 54 degrees [facility] Calculated R Doerun -21 degrees [facility] Calculated T Doerun 54 degrees [facility] P-R Interval 166 ms [facility] QRS Duration 88 ms [facility] QT Interval 386 ms [facility] QTC Calculation (Bazett) 464 ms [facility] Ventricular Rate 87 BPM [facility] NORMAL SINUS RHYTHM EARLY R WAVE TRANSITION BORDERLINE ECG Confirmed by MD ROBLES GREGORY () on 02/01/2024 8:39:51 AM [facility] NAME : SARAH IVORY PID : [id number] : 1940 Gender : Female Race : ORD : [id number] Procedure Date : Jan 31 2024 11:04:48 Edit Date : Feb 01 2024 08:39:52 Diagnosis: NORMAL SINUS RHYTHM EARLY R WAVE TRANSITION BORDERLINE ECG Confirmed by MD ROBLES GREGORY () on 02/01/2024 8:39:51 AM Test Reason : R07.9 Chest pain, unspecified type Location : 185 : [facility] Overread By : MD ROBLES GREGORY Edited By : MD ROBLES GREGORY Referred By : CLARENCE BERRY Acquired by : Rhonda HINTON, [facility] UA DIP, URINE (POC)on 2023 BILIRUBIN UA (POCT) Negative Negative [facility] CLARITY UA (POCT) Cloudy [facility] COLOR UA (POCT) Dark yellow [facility] GLUCOSE UA (POCT) Negative Negative mg/dL [facility] Hemoglobin Ql (U) Small Abnormal Negative [facility] Interpretation and review of laboratory results Abnormal [facility] KETONE UA (POCT) Negative Negative mg/dL [facility] LEUKOCYTES UA (POCT) Moderate Abnormal Negative [facility] NITRITE UA (POCT) Positive Abnormal Negative [facility] PH UA (POCT) 5.0 4.5 - 8.0 [facility] Protein Ql (U) 100 mg/dL Abnormal Negative [facility] SPECIFIC GRAVITY UA (POCT) 1.015 1.005 - 1.030 [facility] UROBILINOGEN UA (POCT) 0.2 Karla l E.U./dL [facility] Location:[address], [place], [place], [address] [place] [address] POINT OF CARE [facility] CBC panel Auto (Bld)on 09-28 Erythrocyte distribution width (RBC) [Ratio] 13.2 % 11.5 - 15.0 % [facility] Hematocrit (Bld) [Volume fraction] 37.8 % 36.0 - 46.0 % [facility] Hemoglobin (Bld) [Mass/Vol] 12.8 g/dL 11.5 - 15.5 g/dL [facility] MCH (RBC) [Entitic mass] 31.4 pg 26.0 - 34.0 pg [facility] MCHC (RBC) [Mass/Vol] 33.9 g/dL 30.5 - 36.0 g/dL [facility] MCV (RBC) [Entitic vol] 92.9 fL 80.0 - 100.0 fL [facility] Nucleated RBC (Bld) [#/Vol] <0.01 k/uL [facility] Platelet mean volume (Bld) [Entitic vol] 9.7 fL 9.0 - 12.7 fL [facility] Platelets (Bld) [#/Vol] 219 10*3/uL 150 - 400 k/uL [facility] RBC (Bld) [#/Vol] 4.07 10*6/uL 3.90 - 5.20 m/uL [facility] WBC (Bld) [#/Vol] 6.60 10*3/uL 3.70 - 11.00 k/uL [facility] Comprehensive metabolic 2000 panelon 09-28-2023 Albumin [Mass/Vol] 4.0 g/dL 3.9 - 4.9 g/dL [facility] ALP [Catalytic activity/Vol] 88 U/L 34 - 123 U/L [facility] ALT [Catalytic activity/Vol] 12 U/L 7 - 38 U/L [facility] Anion gap [Moles/Vol] 10 mmol/L 9 - 18 mmol/L [facility] AST [Catalytic activity/Vol] 13 U/L 13 - 35 U/L [facility] Bilirubin [Mass/Vol] 0.4 mg/dL 0.2 - 1 .3 mg/dL [facility] Calcium [Mass/Vol] 8.9 mg/dL 8.5 - 10. 2 mg/dL [facility] Chloride [Moles/Vol] 102 mmol/L 97 - 10 5 mmol/L [facility] CO2 [Moles/Vol] 27 mmol/L 22 - 30 mmol/L [facility] Creatinine [Mass/Vol] 0.68 mg/dL 0.58 - 0.96 mg/dL [facility] Estimated Glomerular Filtration Rate 88 mL/min/1.73m >=60 mL/min/1.7 3m [facility] Glucose [Mass/Vol] 289 mg/dL High 74 - 99 mg/dL [facility] Potassium [Moles/Vol] 4.3 mmol/L 3.7 - 5.1 mmol/L [facility] Protein [Mass/Vol] 6.6 g/dL 6.3 - 8.0 g/dL [facility] Sodium [Moles/Vol] 139 mmol/L 136 - 144 mmol/L [facility] Urea nitrogen [Mass/Vol] 15 mg/dL 7 - 21 mg/dL [facility] HbA1c (Bld)on 09-28-2023 Average glucose Estimated from glycated hemoglobin (Bld) [Mass/Vol] 183 mg/dL [facility] HbA1c (Bld) [Mass fraction] 8.0 % High 4.3 - 5.6 % [facility] Laboratory - Hematology and Cell countson 07-31-2023 HbA1c (Bld) [Mass fraction] 8.4 % 4.2-6.3 [facility] Glucose Glucometer (BldC) [M ass/Vol]Ordered By: Denzel Forbes on 06-26-2023 Glucose [Mass/Vol] 254 mg/dL 74-106 [facility] Comment on above: MANAGEMENT OF PATIEN T CARE PER NURSING PROTOCOL Absolute lymphocyte countOrd ered By: Denzel Forbes on 06-21-2023 Lymphocytes Auto (Unsp spec) [#/Vol] 1.92 10*3/uL 0.83-4.51 [facility] Basophil percentageOrdered B y: Denzel Forbes on 06-21-2023 Basophils/100 WBC (Bld) 0.6 % 0-1 [facility] Chloride [Moles/Vol] 99 mmol/L 98-107 [facility] Eosinophils/100 WBC (Bld) 3.7 % 0-5 [facility] Glucose [Mass/Vol] 215 mg/dL 74-106 [facility] Comment on above: Glucose result great er than or equal to 200 mg/dLsuggests DIABETES MELLITUS per A.D.A. criteria. Neutrophils (Bld) [#/Vol] 8.9 10*3/uL 2.0-7.7 [facility] Neutrophils/100 WBC (Bld) 70.9 % 47-70 [facility] Potassium [Moles/Vol] 4.5 mmol/L 3.5-5.1 [facility] Sodium [Moles/Vol] 137 mmol/L 136-145 [facility] WBC (Bld) [#/Vol] 12.6 10*3/uL 4.4-11.0 [facility] Blood erythrocytes count (nu mber/volume)Ordered By: Denzel Forbes on 06-21-2023 RBC (Bld) [#/Vol] 4.52 10*6/uL 4.2-5.4 [facility] Blood hemoglobin measurement (mass/volume)Ordered By: Denzel Forbes on 06-21-2023 Hemoglobin (Bld) [Mass/Vol] 13.9 g/dL 12.0-15.0 [facility] Blood lymphocytes/100 leukoc ytesOrdered By: Denzel Forbes on 06-21-2023 Lymphocytes/100 WBC (Bld) 15.2 % 19-41 [facility] Blood monocytes/100 leukocyt esOrdered By: Denzel Forbes on 06-21-2023 Monocytes/100 WBC (Bld) 9.3 % 0-10 [facility] Blood platelet mean volumeOr dered By: Denzel Forbes on 06-21-2023 Platelet mean volume (Bld) [Entitic vol] 10.0 fL 6.2-12.0 [facility] Determination of erythrocyte mean corpuscular volume (MCV)Ordered By: Denzel Fobres on 06-21-2023 MCV (RBC) [Entitic vol] 96.2 fL 81-99 [facility] Hematocrit Auto (Bld) [Volum e fraction]Ordered By: Denzel Forbes on 06-21-2023 Hematocrit (Bld) [Volume fraction] 43.5 % 37-47 [facility] - Chemistry and C hemistry - challengeOrdered By: Denzel Andrei 06-21-2023 CO2 [Moles/Vol] 30.0 mmol/L 21.0-32.0 [facility] Urea nitrogen/Creatinine [Mass ratio] 21.7 mg/mg 10-20 [facility] - Hematology and Cell countsOrdered By: Denzel Forbes 06-21-2023 Erythrocyte distribution width (RBC) [Entitic vol] 48.2 fL 35.1-43.9 [facility] Erythrocyte distribution width (RBC) [Ratio] 13.6 % 11.6-14.6 [facility] Immature granulocytes/100 WBC (Bld) 0.300 % 0.0-0.9 [facility] Comment on above: IG% - Immature Granu locytes (promyelocytes, myelocytes and metamyelocytes) > 1% indicates that a LEFT SHIFT is Present. MCH (RBC) [Entitic mass] 30.8 pg 27.0-32.0 [facility] Nucleated RBC/100 WBC (Bld) [Ratio] 0 % 0-5 [facility] MCHC Auto (RBC) [Mass/Vol]Or dered By: Denzel Forbes on 06-21-2023 MCHC (RBC) [Mass/Vol] 32.0 g/dL 32-36 [facility] No Panel InformationOrdered By: Denzel Forbes on 06-21-2023 Estimated Creatinine Clearance Calc 32.92 ml/min [facility] Estimated GFR (MDRD) Amer 64 mL/min >60 [facility] Comment on above: GFR Calc Estimated GFR (MDRD) Non-Af Amer 53 mL/min >60 [facility] Comment on above: Non- GFR Calc Platelets bldOrdered By: Denzel Forbes on 06-21-2023 Platelets (Bld) [#/Vol] 304 10*3/uL 150-450 [facility] Serum or plasma calcium stephie urement (mass/volume)Ordered By: Denzel Forbes on 06-21-2023 Calcium [Mass/Vol] 9.4 mg/dL 8.5-10.1 [facility] Serum or plasma creatinine m easurement (mass/volume)Ordered By: Denzel Forbes on 06-21-2023 Creatinine [Mass/Vol] 1.06 mg/dL 0.55-1.02 [facility] Comment on above: The validity of the calculated GFR & GFRAA in patients over 70 years has not been determined. Clinical correlation is essential. Serum or plasma urea nitroge n measurement (mass/volume)Ordered By: Denzel Forbes on 06-21-2023 Urea nitrogen [Mass/Vol] 23 mg/dL 7-18 [facility] Thin prep Papanicolaou smear with manual screeningOrdered By: Denzel Forbes on 06-21-2023 Thin prep Papanicolaou smear with manual screening 8 5-15 [facility] Glucose Glucometer (BldC) [M ass/Vol]Ordered By: Denzel Forbes on 06-19-2023 Glucose [Mass/Vol] 244 mg/dL 74-106 [facility] Comment on above: MANAGEMENT OF PATIEN T CARE PER NURSING PROTOCOL Glucose Glucometer (BldC) [M ass/Vol]Ordered By: Denzel Forbes on 06-18-2023 Glucose [Mass/Vol] 202 mg/dL 74-106 [facility] Comment on above: MANAGEMENT OF PATIEN T CARE PER NURSING PROTOCOL Absolute lymphocyte countOrd ered By: Denzel Forbes on 06-14-2023 Lymphocytes Auto (Unsp spec) [#/Vol] 1.94 10*3/uL 0.83-4.51 [facility] Basophil percentageOrdered B y: Denzel Forbes on 06-14-2023 Basophils/100 WBC (Bld) 0.4 % 0-1 [facility] Chloride [Moles/Vol] 104 mmol/L 98-107 [facility] Eosinophils/100 WBC (Bld) 5.6 % 0-5 [facility] Glucose [Mass/Vol] 258 mg/dL 74-106 [facility] Comment on above: Glucose result great er than or equal to 200 mg/dLsuggests DIABETES MELLITUS per A.D.A. criteria. Neutrophils (Bld) [#/Vol] 3.6 10*3/uL 2.0-7.7 [facility] Neutrophils/100 WBC (Bld) 53.7 % 47-70 [facility] Potassium [Moles/Vol] 3.6 mmol/L 3.5-5.1 [facility] Sodium [Moles/Vol] 138 mmol/L 136-145 [facility] WBC (Bld) [#/Vol] 6.7 10*3/uL 4.4-11.0 [facility] Blood erythrocytes count (nu mber/volume)Ordered By: Denzel Forbes on 06-14-2023 RBC (Bld) [#/Vol] 4.01 10*6/uL 4.2-5.4 [facility] Blood hemoglobin measurement (mass/volume)Ordered By: Denzel Forbes on 06-14-2023 Hemoglobin (Bld) [Mass/Vol] 12.5 g/dL 12.0-15.0 [facility] Blood lymphocytes/100 leukoc ytesOrdered By: Denzel Forbes on 06-14-2023 Lymphocytes/100 WBC (Bld) 28.8 % 19-41 [facility] Blood monocytes/100 leukocyt esOrdered By: Denzel Forbes on 06-14-2023 Monocytes/100 WBC (Bld) 11.1 % 0-10 [facility] Blood platelet mean volumeOr dered By: Denzel Forbes on 06-14-2023 Platelet mean volume (Bld) [Entitic vol] 9.6 fL 6.2-12.0 [facility] Determination of erythrocyte mean corpuscular volume (MCV)Ordered By: Denzel Forbes on 06-14-2023 MCV (RBC) [Entitic vol] 91.5 fL 81-99 [facility] Hematocrit Auto (Bld) [Volum e fraction]Ordered By: Denzel Forbes on 06-14-2023 Hematocrit (Bld) [Volume fraction] 36.7 % 37-47 [facility] - Chemistry and C hemistry - challengeOrdered By: Denzel Forbes on 06-14-2023 CO2 [Moles/Vol] 27.0 mmol/L 21.0-32.0 [facility] Urea nitrogen/Creatinine [Mass ratio] 23.6 mg/mg 10-20 [facility] - Hematology and Cell countsOrdered By: Denzel Forbes on 06-14-2023 Erythrocyte distribution width (RBC) [Entitic vol] 45.3 fL 35.1-43.9 [facility] Erythrocyte distribution width (RBC) [Ratio] 13.5 % 11.6-14.6 [facility] Immature granulocytes/100 WBC (Bld) 0.400 % 0.0-0.9 [facility] Comment on above: IG% - Immature Granu locytes (promyelocytes, myelocytes and metamyelocytes) > 1% indicates that a LEFT SHIFT is Present. MCH (RBC) [Entitic mass] 31.2 pg 27.0-32.0 [facility] Nucleated RBC/100 WBC (Bld) [Ratio] 0 % 0-5 [facility] MCHC Auto (RBC) [Mass/Vol]Or dered By: Denzel Forbes on 06-14-2023 MCHC (RBC) [Mass/Vol] 34.1 g/dL 32-36 [facility] No Panel InformationOrdered By: Denzel Forbes on 06-14-2023 Estimated Creatinine Clearance Calc 34.90 ml/min [facility] Estimated GFR (MDRD) Amer 107 mL/min >60 [facility] Comment on above: GFR Calc Estimated GFR (MDRD) Non-Af Amer 89 mL/min >60 [facility] Comment on above: Non- GFR Calc Platelets bldOrdered By: Denzel Forbes on 06-14-2023 Platelets (Bld) [#/Vol] 218 10*3/uL 150-450 [facility] Serum or plasma calcium stephie urement (mass/volume)Ordered By: Denzel Forbes on 06-14-2023 Calcium [Mass/Vol] 8.5 mg/dL 8.5-10.1 [facility] Serum or plasma creatinine m easurement (mass/volume)Ordered By: Denzel Forbes on 06-14-2023 Creatinine [Mass/Vol] 0.68 mg/dL 0.55-1.02 [facility] Comment on above: The validity of the calculated GFR & GFRAA in patients over 70 years has not been determined. Clinical correlation is essential. Serum or plasma urea nitroge n measurement (mass/volume)Ordered By: Denzel Forbes on 06-14-2023 Urea nitrogen [Mass/Vol] 16 mg/dL 7-18 [facility] Thin prep Papanicolaou smear with manual screeningOrdered By: Denzel Forbes on 06-14-2023 Thin prep Papanicolaou smear with manual screening 7 5-15 [facility] Absolute lymphocyte countOrd ered By: Nacho Poe on 06-13-2023 Lymphocytes Auto (Unsp spec) [#/Vol] 1.66 10*3/uL 0.83-4.51 [facility] Basophil percentageOrdered B y: Nacho Poe on 06-13-2023 Basophil percentage 2.7 mg/dL 2.5-4.9 [facility] Basophils/100 WBC (Bld) 0.6 % 0-1 [facility] Chloride [Moles/Vol] 108 mmol/L 98-107 [facility] Eosinophils/100 WBC (Bld) 6.8 % 0-5 [facility] Glucose [Mass/Vol] 223 mg/dL 74-106 [facility] Comment on above: Glucose result great er than or equal to 200 mg/dLsuggests DIABETES MELLITUS per A.D.A. criteria. Neutrophils (Bld) [#/Vol] 3.9 10*3/uL 2.0-7.7 [facility] Neutrophils/100 WBC (Bld) 56.9 % 47-70 [facility] Potassium [Moles/Vol] 3.5 mmol/L 3.5-5.1 [facility] Sodium [Moles/Vol] 138 mmol/L 136-145 [facility] WBC (Bld) [#/Vol] 6.9 10*3/uL 4.4-11.0 [facility] Blood erythrocytes count (nu mber/volume)Ordered By: Nacho Poe on 06-13-2023 RBC (Bld) [#/Vol] 4.29 10*6/uL 4.2-5.4 [facility] Blood hemoglobin measurement (mass/volume)Ordered By: Nacho Poe on 06-13-2023 Hemoglobin (Bld) [Mass/Vol] 13.0 g/dL 12.0-15.0 [facility] Blood lymphocytes/100 leukoc ytesOrdered By: Nacho Poe on 06-13-2023 Lymphocytes/100 WBC (Bld) 24.1 % 19-41 [facility] Blood monocytes/100 leukocyt esOrdered By: Nacho Poe on 06-13-2023 Monocytes/100 WBC (Bld) 11.2 % 0-10 [facility] Blood platelet mean volumeOr dered By: Nacho Poe on 06-13-2023 Platelet mean volume (Bld) [Entitic vol] 10.0 fL 6.2-12.0 [facility] Determination of erythrocyte mean corpuscular volume (MCV)Ordered By: Nacho Poe on 06-13-2023 MCV (RBC) [Entitic vol] 90.2 fL 81-99 [facility] Glucose Glucometer (dC) [M ass/Vol]Ordered By: Nacho Poe on 06-13-2023 Glucose [Mass/Vol] 335 mg/dL 74-106 [facility] Comment on above: MANAGEMENT OF PATIEN T CARE PER NURSING PROTOCOL Hematocrit Auto (Bld) [Volum e fraction]Ordered By: Nacho Poe on 06-13-2023 Hematocrit (Bld) [Volume fraction] 38.7 % 37-47 [facility] - Chemistry and C hemistry - challengeOrdered By: Nacho Poe on 06-13-2023 CO2 [Moles/Vol] 27.0 mmol/L 21.0-32.0 [facility] Magnesium [Mass/Vol] 1.9 mg/dL 1.6-2.6 [facility] Urea nitrogen/Creatinine [Mass ratio] 18.5 mg/mg 10-20 [facility] - Hematology and Cell countsOrdered By: Nacho Poe on 06-13-2023 Erythrocyte distribution width (RBC) [Entitic vol] 43.2 fL 35.1-43.9 [facility] Erythrocyte distribution width (RBC) [Ratio] 13.2 % 11.6-14.6 [facility] Immature granulocytes/100 WBC (Bld) 0.400 % 0.0-0.9 [facility] Comment on above: IG% - Immature Granu locytes (promyelocytes, myelocytes and metamyelocytes) > 1% indicates that a LEFT SHIFT is Present. MCH (RBC) [Entitic mass] 30.3 pg 27.0-32.0 [facility] Nucleated RBC/100 WBC (Bld) [Ratio] 0 % 0-5 [facility] MCHC Auto (RBC) [Mass/Vol]Or dered By: Nacho Poe on 06-13-2023 MCHC (RBC) [Mass/Vol] 33.6 g/dL 32-36 [facility] No Panel InformationOrdered By: Nacho Poe on 06-13-2023 Estimated Creatinine Clearance Calc 34.90 ml/min [facility] Estimated GFR (MDRD) Amer 113 mL/min >60 [facility] Comment on above: GFR Calc Estimated GFR (MDRD) Non-Af Amer 93 mL/min >60 [facility] Comment on above: Non- GFR Calc Platelets bldOrdered By: Newton Poe on 06-13-2023 Platelets (Bld) [#/Vol] 213 10*3/uL 150-450 [facility] Serum or plasma calcium stephie urement (mass/volume)Ordered By: Nacho Poe on 06-13-2023 Calcium [Mass/Vol] 8.7 mg/dL 8.5-10.1 [facility] Serum or plasma creatinine m easurement (mass/volume)Ordered By: Nacho Poe on 06-13-2023 Creatinine [Mass/Vol] 0.65 mg/dL 0.55-1.02 [facility] Comment on above: The validity of the calculated GFR & GFRAA in patients over 70 years has not been determined. Clinical correlation is essential. Serum or plasma urea nitroge n measurement (mass/volume)Ordered By: Nacho Poe on 06-13-2023 Urea nitrogen [Mass/Vol] 12 mg/dL 7-18 [facility] Thin prep Papanicolaou smear with manual screeningOrdered By: Nacho Poe on 06-13-2023 Thin prep Papanicolaou smear with manual screening 3 5-15 [facility] - Chemistry and C hemistry - challengeOrdered By: Edwin Morgan on 06-11-2023 CK [Catalytic activity/Vol] 240 U/L 26-192 [facility] Serum or plasma acetone stephie urement (mass/volume)Ordered By: Edwin Morgan on 06-11-2023 Acetone [Mass/Vol] SMALL NEG [facility] Comment on above: Previous reported re sult: NEGATIVE Edited by: KEMAR on 06/11/23:0706 AMENDED REPORT 06/11/23 0706 ACETONE SERUM previously reported as: NEGATIVE Absolute lymphocyte countOrd ered By: Dada Pay on 06-10-2023 Lymphocytes Auto (Unsp spec) [#/Vol] 0.73 10*3/uL 0.83-4.51 [facility] Basophil percentageOrdered B y: Dada Pay on 06-10-2023 Lactate [Moles/Vol] 1.7 mmol/L 0.4-2.0 [facility] Basophils/100 WBC (Bld) 0.1 % 0-1 [facility] Bilirubin [Mass/Vol] 0.50 mg/dL 0.20-1.00 [facility] Comment on above: For patients on eltr ombopag therapy, use of Dimension [place] TBIL is not recommended. Chloride [Moles/Vol] 105 mmol/L 98-107 [facility] Eosinophils/100 WBC (Bld) 2.1 % 0-5 [facility] Glucose [Mass/Vol] 238 mg/dL 74-106 [facility] Comment on above: Glucose result great er than or equal to 200 mg/dLsuggests DIABETES MELLITUS per A.D.A. criteria. Lactate [Moles/Vol] 2.9 mmol/L 0.4-2.0 [facility] Comment on above: Critical Result(s) Checo Dunlap at: 18:41:00 06/10/2023 by: CCrytzer. Results read back by same. Neutrophils (Bld) [#/Vol] 11.1 10*3/uL 2.0-7.7 [facility] Neutrophils/100 WBC (Bld) 86.1 % 47-70 [facility] Potassium [Moles/Vol] 3.9 mmol/L 3.5-5.1 [facility] Protein [Mass/Vol] 8.0 g/dL 6.4-8.2 [facility] Sodium [Moles/Vol] 134 mmol/L 136-145 [facility] WBC (Bld) [#/Vol] 12.9 10*3/uL 4.4-11.0 [facility] Blood erythrocytes count (nu mber/volume)Ordered By: Dada Maynard on 06-10-2023 RBC (Bld) [#/Vol] 4.94 10*6/uL 4.2-5.4 [facility] Blood hemoglobin measurement (mass/volume)Ordered By: Dada Maynard on 06-10-2023 Hemoglobin (Bld) [Mass/Vol] 15.3 g/dL 12.0-15.0 [facility] Blood lymphocytes/100 leukoc ytesOrdered By: Dada Maynard on 06-10-2023 Lymphocytes/100 WBC (Bld) 5.7 % 19-41 [facility] Blood monocytes/100 leukocyt esOrdered By: Dada Maynard on 06-10-2023 Monocytes/100 WBC (Bld) 5.8 % 0-10 [facility] Blood platelet mean volumeOr dered By: Dada Maynard on 06-10-2023 Platelet mean volume (Bld) [Entitic vol] 9.8 fL 6.2-12.0 [facility] COVID-19 virus antigen assay Ordered By: Dada Maynard on 06-10-2023 SARS-CoV-2 (COVID-19) Ag IA.rapid Ql (Resp) [facility] Culture, urineOrdered By: Rainer Maynard on 06-10-2023 Bacteria identified Cx Nom (U) Culture exhibits no growth. [facility] Determination of erythrocyte mean corpuscular volume (MCV)Ordered By: Dada Maynard on 06-10-2023 MCV (RBC) [Entitic vol] 90.7 fL 81-99 [facility] Hematocrit Auto (Bld) [Volum e fraction]Ordered By: Dada Maynard on 06-10-2023 Hematocrit (Bld) [Volume fraction] 44.8 % 37-47 [facility] INR in Blood by Coagulation assayOrdered By: Dada Maynard on 06-10-2023 INR Coag (Bld) [Relative time] 1.1 {INR} [facility] - Chemistry and C hemistry - challengeOrdered By: Dada Maynard on 06-10-2023 ALP [Catalytic activity/Vol] 109 U/L 45-117 [facility] ALT [Catalytic activity/Vol] 19 U/L 13-56 [facility] CK [Catalytic activity/Vol] 301 U/L 26-192 [facility] CO2 [Moles/Vol] 17.0 mmol/L 21.0-32.0 [facility] Globulin (S) [Mass/Vol] 4.5 g/dL 2.2-4.2 [facility] Urea nitrogen/Creatinine [Mass ratio] 19.3 mg/mg 10-20 [facility] - CoagulationOrde red By: Dada Maynard on 06-10-2023 aPTT Coag (Bld) [Time] 27.6 s 24.1-36.2 [facility] PT Coag (PPP) [Time] 14.0 s 11.7-14.9 [facility] - Hematology and Cell countsOrdered By: Dada Maynard on 06-10-2023 Erythrocyte distribution width (RBC) [Entitic vol] 43.3 fL 35.1-43.9 [facility] Erythrocyte distribution width (RBC) [Ratio] 13.2 % 11.6-14.6 [facility] Immature granulocytes/100 WBC (Bld) 0.200 % 0.0-0.9 [facility] Comment on above: IG% - Immature Granu locytes (promyelocytes, myelocytes and metamyelocytes) > 1% indicates that a LEFT SHIFT is Present. MCH (RBC) [Entitic mass] 31.0 pg 27.0-32.0 [facility] Nucleated RBC/100 WBC (Bld) [Ratio] 0 % 0-5 [facility] - Microbiology an d Antimicrobial susceptibilityOrdered By: Dada Maynard on 06-10-2023 Bacteria identified Cx Nom (Bld) No growth in 5 days. [facility] MCHC Auto (RBC) [Mass/Vol]Or dered By: Dada Maynard on 06-10-2023 MCHC (RBC) [Mass/Vol] 34.2 g/dL 32-36 [facility] No Panel InformationOrdered By: Dada Maynard on 06-10-2023 Estimated Creatinine Clearance Calc 39.65 ml/min [facility] Estimated GFR (MDRD) Amer 79 mL/min >60 [facility] Comment on above: GFR Calc Estimated GFR (MDRD) Non-Af Amer 66 mL/min >60 [facility] Comment on above: Non- GFR Calc Platelets bldOrdered By: Aidan cheyennejuvenal Maynard on 06-10-2023 Platelets (Bld) [#/Vol] 252 10*3/uL 150-450 [facility] Serum or plasma albumin stephie urement (mass/volume)Ordered By: Dada Maynard on 06-10-2023 Albumin [Mass/Vol] 3.5 g/dL 3.2-5.0 [facility] Serum or plasma albumin/glob ulin mass ratioOrdered By: Dada Maynard on 06-10-2023 Albumin/Globulin [Mass ratio] 0.8 {ratio} 0.9-2.4 [facility] Serum or plasma calcium stephie urement (mass/volume)Ordered By: Dada Maynard on 06-10-2023 Calcium [Mass/Vol] 9.1 mg/dL 8.5-10.1 [facility] Serum or plasma creatinine m easurement (mass/volume)Ordered By: Dada Maynard on 06-10-2023 Creatinine [Mass/Vol] 0.88 mg/dL 0.55-1.02 [facility] Comment on above: The validity of the calculated GFR & GFRAA in patients over 70 years has not been determined. Clinical correlation is essential. Serum or plasma urea nitroge n measurement (mass/volume)Ordered By: Dada Maynard on 06-10-2023 Urea nitrogen [Mass/Vol] 17 mg/dL 7-18 [facility] Thin prep Papanicolaou smear with manual screeningOrdered By: Dada Maynard on 06-10-2023 Thin prep Papanicolaou smear with manual screening 11 U/L 15-37 [facility] Thin prep Papanicolaou smear with manual screening 12 5-15 [facility] ANES POSTPROC EVALon 06-06-2 023 ANES POSTPROC EVAL HNO ID: [id number] Author: Sabino Nelson DO Service: Anesthesiology Author Type: Physician Type: Anesthesia Postprocedure Evaluation Filed: 06/06/2023 12:55 PM Note Text: POST ANESTHESIA EVALUATION NOTE : 1940 Procedure Summary Date: 06/06/23 Room / Location: [facility] Endoscopy Anesthesia Start: 1145 Anesthesia Stop: 1215 Procedure: EGD DIAGNOSTIC Diagnosis: 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 (Dysphagia) Scheduled Providers: Erik Underwood MD; Gael Landa APRN.CRNA; Sabino Nelson DO Responsible Provider: Sabino Nelson [...] Documentation SIGNATURE: Sabino Nelson DO PATIENT NAME: Aan Ivory DATE: June 06, 2023 TIME: 12:55 PM CSN: [id number] Normal [facility] ANES PRE-OPon 06-06-2023 ANES PRE-OP HNO ID: [id number] Author: Sabino Nelson DO Service: Anesthesiology Author Type: Physician Type: Anesthesia Preprocedure Evaluation Filed: 06/06/2023 11:26 AM Note Text: ANESTHESIOLOGY DAY OF SURGERY NOTE : 1940 Procedure Information Date/Time: 06/06/23 1300 Scheduled providers: Erik Underwood MD; Gael Landa APRN.CRNA; Sabino Nelson DO Procedure: EGD DIAGNOSTIC Location: [facility]oscopy Estimated body mass index is [...] daily. For 30 days - multivitamin-folic acid-biotin (WLZK-MYUX-BYYTH, CI-KB-VBFQCS,) 400-2,000 mcg tab Take by mouth. - [...] once daily. Take with food - Insulin [place], Disposable, (BD ULTRA-FINE FOZIA PEN NEEDLE) 32 [...] directed for allergies - CRANBERRY - Insulin [place], Disposable, (more content not included)... Normal [facility] EGD DIAGNOSTICon 06-06-2023 [facility] GLUCOSE, BLOOD (POC)on 06-06 Glucose [Mass/Vol] 234 mg/dL Abnormal 74 - 99 mg/dL [facility] Glucose [Mass/Vol] 275 mg/dL Abnormal 74 - 99 mg/dL [facility] HISTORY PHYSICALon HISTORY PHYSICAL HNO ID: [id number] Author: Erik Underwood MD Service: General Surgery Author Type: Physician Type: HANDP Filed: 06/06/2023 11:57 AM Note Text: HISTORY AND PHYSICAL Ana Wheeler Shannon 1940 REFERRING PHYSICIAN: Clarence Berry APRN.INSPECTOR OPEN DIE CHIEF COMPLAINT: Consult (EGD consultation.) HPI: The [...] esophagus C. difficile diarrhea 10/18/2011 Cataract 04/17/2013 [facility], Dr. Dada Rodríguez. Mild cataract in L eye- no need for cataract surgery at this time. Continue to follow up the cataract. 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 At this time, we anticipate that [...] [facility] SPEC VARICIES INJ 12/21/2021 EGD W/O [facility] SPEC VARICIES INJ 12/21/2021 ESOPHAGOGASTRODUODENOSCOPY TRANSORAL DIAGNOSTIC [...] mg by m (more content not included)... Normal [facility] SURGICAL PATHOLOGYon 023 CASE REPORT Normal [facility] Comment on above: Order Comment: Speci men Type: TISSUE SPECIMEN Ordering Facility: [facility] Address: [address] [place] [address] Result Comment: Surg [facility] Pathology Report Case: [id number] Authorizing Provider: Erik Underwood MD Collected: 06/06/2023 12:01 PM Ordering Location: [facility] Received: 06/06/2023 03:24 PM Pathologist: Katherin Rubio MD Specimens: A) - DUODENUM BIOPSY B) - ANTRUM (STOMACH) BIOPSY C) - ESOPHAGUS LOWER BIOPSY, Irregular Z-Line D) - ESOPHAGUS MID BIOPSY Performed By: #### S #### [facility] CLIA [id number] [place] DIAGNOSIS COMMENT Intraepithelial eosi nophils are not identified in the mid esophagus. Fungal forms are not identified. [facility] Comment on above: Order Comment: Speci men Type: TISSUE SPECIMEN Ordering Facility: [facility] Address: [address] [place] [address] Performed By: #### S #### [facility] CLIA [id number] [address] [place] [address] [place] FINAL DIAGNOSIS [facility] Comment on above: Order Comment: Speci men Type: TISSUE SPECIMEN Ordering Facility: [facility] Address: [address] [place] [address] Result Comment: A. D uodenum, biopsy: - [...] comment. AEB/mm/06/08/2023 Performed By: #### S #### [facility] CLIA [id number] [address] [place] [address] [place] FINAL PERFORMING LAB [facility] Comment on above: Order Comment: Speci men Type: TISSUE SPECIMEN Ordering Facility: [facility] Address: [address] [place] [address] Result Comment: Diag nostic interpretation performed at [facility], [address] [place] [address] CLIA# [id number] Cad Draftsman: Sebastian Woodward M.D. Performed By: #### S #### [facility] CLIA [id number] [address] [place] [address] [place] GROSS DESCRIPTION Normal [facility] Comment on above: Order Comment: Speci men Type: TISSUE SPECIMEN Ordering Facility: [facility] Address: [address] [place] [address] Result Comment: A. D UODENUM BIOPSY Received [...] in one cassette. Gross examination performed at [facility], [address] [place] [address] June 06, 2023 8:11 PM Performed By: #### S #### [facility] CLIA [id number] [address] [place] [address] [place] Upper GI endoscopy 10-25-2 023 Upper GI endoscopy [facility] Gastrointestinal Endoscopy Patient Name: Ana Ivory Procedure Date: 06/06/2023 11:33 AM Date of : 1940 Admit Type: Outpatient Age: 83 Room: [facility] Gender: Female Note Status: Finalized [...] years for surveillance. - Return to physician chemist assistant in 1 week. - Perform an esophagram at appointment to be scheduled. Procedure Code(s): --- Professional --- 09424, Esophagogastroduodenoscopy, flexible, transoral; with biopsy, single or multiple Diagnosis Code(s): --- Professional --- K22.70, 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 R13.10, Dysphagia, unspecified CPT copyright 2020 [employer]. All rights reserved. The codes documented in this report are preliminary and upon purchasing manager review may be revised to meet current compliance requirements. Attending Participation: I personally performed the entire procedure. Scope In: 12:00:10 PM Scope Out: 12:05:16 PM MD Erik Durham MD 06/06/2023 12:11:48 PM This report has been signed electronically by Erik Underwood MD Number of Addenda: 0 Note Initiated On: 06/06/2023 11:33 AM Estimated Blood Loss: Estimated blood loss was minimal. Normal [facility] Laboratory - Hematology and Cell countson 03-05-2023 HbA1c (Bld) [Mass fraction] 7.4 % 4.2-6.3 [facility] XR Foot - right AP and Later al and obliqueon 01-01-2023 IMPRESSION: Nondisplaced fracture of the base of the distal phalanx of the right first toe Acidity Tester: ABHILASH Transcribe Date/Time: Jan 01 2023 3:11P Dictated by : CAMERON ZAMARRIPA MD This examination was interpreted and the report reviewed and electronically signed by: CAMERON ZAMARRIPA MD on Jan 01 2023 3:13PM [facility] DIVISION OF RADIOLOGY * * *Final Report* [...] spaces are maintained. DIVISION OF RADIOLOGY Provider, [facility] - 01/01/2023 * * *Final Report* [...] distal phalanx of the right first toe Acidity Tester: ABHILASH Transcribe Date/Time: Jan 01 2023 3:11P Dictated by : CAMERON ZAMARRIPA MD This examination was interpreted and the report reviewed and electronically signed by: CAMERON ZAMARRIPA MD on Jan 01 2023 3:13PM EST [facility] Radiology Study observation (narrative) [facility] XR Foot - right AP and Later al and obliqueOrdered By: Ccf Provider on 01-01-2023 [facility] No Panel Informationon 10-10 [facility] CBC panel Auto (Bld)on 08-02 Erythrocyte distribution width (RBC) [Ratio] 13.7 % 11.5 - 15.0 % [facility] Hematocrit (Bld) [Volume fraction] 37.8 % 36.0 - 46.0 % [facility] Hemoglobin (Bld) [Mass/Vol] 12.9 g/dL 11.5 - 15.5 g/dL [facility] MCH (RBC) [Entitic mass] 31.2 pg 26.0 - 34.0 pg [facility] MCHC (RBC) [Mass/Vol] 34.1 g/dL 30.5 - 36.0 g/dL [facility] MCV (RBC) [Entitic vol] 91.5 fL 80.0 - 100.0 fL [facility] Nucleated RBC (Bld) [#/Vol] <0.01 k/uL [facility] Platelet mean volume (Bld) [Entitic vol] 9.8 fL 9.0 - 12.7 fL [facility] Platelets (Bld) [#/Vol] 230 10*3/uL 150 - 400 k/uL [facility] RBC (Bld) [#/Vol] 4.13 10*6/uL 3.90 - 5.20 m/uL [facility] WBC (Bld) [#/Vol] 7.40 10*3/uL 3.70 - 11.00 k/uL [facility] Comprehensive metabolic 2000 panelon 08-02-2022 Albumin [Mass/Vol] 4.3 g/dL 3.9 - 4.9 g/dL [facility] ALP [Catalytic activity/Vol] 94 U/L 34 - 123 U/L [facility] ALT [Catalytic activity/Vol] 17 U/L 7 - 38 U/L [facility] Anion gap [Moles/Vol] 12 mmol/L 9 - 18 mmol/L [facility] AST [Catalytic activity/Vol] 19 U/L 13 - 35 U/L [facility] Bilirubin [Mass/Vol] 0.4 mg/dL 0.2 - 1 .3 mg/dL [facility] Calcium [Mass/Vol] 8.8 mg/dL 8.5 - 10. 2 mg/dL [facility] Chloride [Moles/Vol] 104 mmol/L 97 - 10 5 mmol/L [facility] CO2 [Moles/Vol] 26 mmol/L 22 - 30 mmol/L [facility] Creatinine [Mass/Vol] 0.69 mg/dL 0.58 - 0.96 mg/dL [facility] Estimated Glomerular Filtration Rate 88 mL/min/1.73m >=60 mL/min/1.7 3m [facility] Glucose [Mass/Vol] 232 mg/dL High 74 - 99 mg/dL [facility] Potassium [Moles/Vol] 4.1 mmol/L 3.7 - 5.1 mmol/L [facility] Protein [Mass/Vol] 6.8 g/dL 6.3 - 8.0 g/dL [facility] Sodium [Moles/Vol] 142 mmol/L 136 - 144 mmol/L [facility] Urea nitrogen [Mass/Vol] 17 mg/dL 7 - 21 mg/dL [facility] Laboratory - Hematology and Cell countson 05-26-2022 HbA1c (Bld) [Mass fraction] 7.5 % 4.2-6.3 [facility] No Panel Informationon 04-03 [facility] XR ANKLE GENERAL 3V AP/LAT/O BL RIGHTon 01-30-2022 [facility] XR Ankle - right AP and Late ral and obliqueon 01-30-2022 IMPRESSION: No acute osseous abnormality identified. Acidity Tester: ABHILASH Transcribe Date/Time: Jan 30 2022 12:55P Dictated by : LORENA KUMAR MD This examination was interpreted and the report reviewed and electronically signed by: LORENA KMUAR MD on Jan 30 2022 12:56PM EST [...] ankle. [id number] _USE_DIVIS ION OF RADIOLOGY Provider, Malou Spicer [facility] - 01/30/2022 * * *Final Report* [...] IMPRESSION IMPRESSION: No acute osseous abnormality identified. Acidity Tester: PSCB Transcribe Date/Time: Jan 30 2022 12:55P Dictated by : LORENA KUMAR MD This examination was interpreted and the report reviewed and electronically signed by: LORENA KUMAR MD on Jan 30 2022 12:56PM EST [facility]ative[facility]le - right AP and Late ral and obliqueOrdered By: Ccf Provider on 01-30-2022 [facility] EGD - THERAPEUTIC, EUS, OR T UBE INTERVENTIONSon 12-21-2021 [facility] GLUCOSE, BLOOD (POC)on 12-21 Glucose [Mass/Vol] 261 mg/dL Abnormal 74 - 99 mg/dL [facility] Glucose [Mass/Vol] 248 mg/dL Abnormal 74 - 99 mg/dL [facility] XR Chest PA and Lateralon IMPRESSION: No acute radiographic abnormality. Acidity Tester: ABHILASH Transcribe Date/Time: Jun 03 2021 1:12P Dictated by : CAMERON ZAMARRIPA MD This examination was interpreted and the report reviewed and electronically signed by: CAMERON ZAMARRIPA MD on Jun 03 2021 1:16PM [facility] DIVISION OF RADIOLOGY * * *Final Report* [...] the thoracic spine. DIVISION OF RADIOLOGY Provider, [facility] - 06/03/2021 * * *Final Report* * [...] spine. IMPRESSION IMPRESSION: No acute radiographic abnormality. Acidity Tester: ABHILASH Transcribe Date/Time: Jun 03 2021 1:12P Dictated by : CAMERON ZAMARRIPA MD This examination was interpreted and the report reviewed and electronically signed by: CAMERON ZAMARRIPA MD on Jun 03 2021 1:16PM EST [facility]narrative[facility] PA and LateralOrder ed By: Ccf Provider on 06-03-2021 [facility] Vital Signs Date Time Vital Sign Value Performing Clinician Facility 07-15-2024 13:16-0500 Diastolic blood pressure 68 mm[Hg] Alicia Blount MD Work Phone: [facility] 07-15-2024 13:16-0500 Systolic blood pressure 132 mm[Hg] Alicia Blount MD Work Phone: [facility] 07-15-2024 12:13-0500 Body mass index (BMI) [Ratio] 28.87 kg/m2 Alicia Blount MD Work Phone: [facility] 07-15-2024 12:13-0500 Body temperature 97.81 [degF] Alicia Blount MD Work Phone: [facility] 07-15-2024 12:13-0500 Body weight 71.6 kg Alicia Blount MD Work Phone: [facility] 07-15-2024 12:13-0500 Heart rate 82 /min Alicia Blount MD Work Phone: [facility] 07-15-2024 12:13-0500 Respiratory rate 16 /min Alicia Blount MD Work Phone: [facility] 07-15-2024 12:13-0500 SaO2% (BldA) [Mass fraction] 97 % Alicia Blount MD Work Phone: [facility] 05-27-2024 11:04-0400 Body mass index (BMI) [Ratio] 29.92 kg/m2 Alicia Blount MD Work Phone: [facility] 05-27-2024 11:04-0400 Body temperature 97.59 [degF] Alicia Blount MD Work Phone: [facility] 05-27-2024 11:04-0400 Body weight 74.2 kg Alicia Blount MD Work Phone: [facility] 05-27-2024 11:04-0400 Diastolic blood pressure 68 mm[Hg] Alicia Blount MD Work Phone: [facility] 05-27-2024 11:04-0400 Heart rate 83 /min Alicia Blount MD Work Phone: [facility] 05-27-2024 11:04-0400 Respiratory rate 16 /min Alicia Blount MD Work Phone: [facility] 05-27-2024 11:04-0400 SaO2% (BldA) [Mass fraction] 97 % Alicia Blount MD Work Phone: [facility] 05-27-2024 11:04-0400 Systolic blood pressure 128 mm[Hg] Alicia Blount MD Work Phone: [facility] 02-17-2024 13:09-0400 Body mass index (BMI) [Ratio] 28.35 kg/m2 Antoinette Agrawal APRN.INTERMEDIATE DESIGNER Work Phone: [facility] 02-17-2024 13:09-0400 Body temperature 98.01 [degF] Antoinette Agrawal APRN.INTERMEDIATE DESIGNER Work Phone: [facility] 02-17-2024 13:09-0400 Body weight 70.3 kg Antoinette Agrawal APRN.INTERMEDIATE DESIGNER Work Phone: [facility] 02-17-2024 13:09-0400 Diastolic blood pressure 72 mm[Hg] Antoinette Agrawal APRN.INTERMEDIATE DESIGNER Work Phone: [facility] 02-17-2024 13:09-0400 Heart rate 99 /min Antoinette Agrawal APRN.INTERMEDIATE DESIGNER Work Phone: [facility] 02-17-2024 13:09-0400 Respiratory rate 20 /min Antoinette Agrawal APRN.INTERMEDIATE DESIGNER Work Phone: [facility] 02-17-2024 13:09-0400 SaO2% (BldA) [Mass fraction] 99 % Antoinette Agrawal COLLEGE ATHLETE.INTERMEDIATE DESIGNER Work Phone: [facility] 02-17-2024 13:09-0400 Systolic blood pressure 120 mm[Hg] Antoinette Agrawal COLLEGE ATHLETE.INTERMEDIATE DESIGNER Work Phone: [facility] 02-12-2024 10:43-0400 Body mass index (BMI) [Ratio] 29.15 kg/m2 Martin Munguia COLLEGE ATHLETE.INTERMEDIATE DESIGNER Work Phone: [facility] 02-12-2024 10:43-0400 Body temperature 97.3 [degF] Martin Munguia COLLEGE ATHLETE.INTERMEDIATE DESIGNER Work Phone: [facility] 02-12-2024 10:43-0400 Body weight 72.3 kg Martin Munguia COLLEGE ATHLETE.INTERMEDIATE DESIGNER Work Phone: [facility] 02-12-2024 10:43-0400 Diastolic blood pressure 80 mm[Hg] Martin Munguia COLLEGE ATHLETE.INTERMEDIATE DESIGNER Work Phone: [facility] 02-12-2024 10:43-0400 Heart rate 82 /min Martin Munguia COLLEGE ATHLETE.INTERMEDIATE DESIGNER Work Phone: [facility] 02-12-2024 10:43-0400 Respiratory rate 18 /min Martin Munguia COLLEGE ATHLETE.INTERMEDIATE DESIGNER Work Phone: [facility] 02-12-2024 10:43-0400 SaO2% (BldA) [Mass fraction] 96 % Martin Munguia COLLEGE ATHLETE.INTERMEDIATE DESIGNER Work Phone: [facility] 02-12-2024 10:43-0400 Systolic blood pressure 132 mm[Hg] Martin Munguia COLLEGE ATHLETE.INTERMEDIATE DESIGNER Work Phone: [facility] 01-31-2024 10:10-0400 Diastolic blood pressure 82 mm[Hg] Clarence Berry COLLEGE ATHLETE.INSPECTOR OPEN DIE Work Phone: [facility] Comment on above: bp average 01-31-2024 10:10-0400 Heart rate 84 /min Clarence Berry COLLEGE ATHLETE.INSPECTOR OPEN DIE Work Phone: [facility] 01-31-2024 10:10-0400 Systolic blood pressure 148 mm[Hg] Clarence Berry COLLEGE ATHLETE.INSPECTOR OPEN DIE Work Phone: [facility] Comment on above: bp average 01-31-2024 10:09-0400 Body mass index (BMI) [Ratio] 28.9 kg/m2 Clarence Berry COLLEGE ATHLETE.INSPECTOR OPEN DIE Work Phone: [facility] 01-31-2024 10:09-0400 Body weight 71.67 kg Clarence Berry COLLEGE ATHLETE.INSPECTOR OPEN DIE Work Phone: [facility] 01-31-2024 10:09-0400 Respiratory rate 16 /min Clarencesanta Mcgregors COLLEGE ATHLETE.INSPECTOR OPEN DIE Work Phone: [facility] 12-09-2023 10:38-0400 Body mass index (BMI) [Ratio] 28.63 kg/m2 Antoinette Agrawal APRN.INTERMEDIATE DESIGNER Work Phone: [facility] 12-09-2023 10:38-0400 Body temperature 97.9 [degF] Antoinette Agrawal APRN.INTERMEDIATE DESIGNER Work Phone: [facility] 12-09-2023 10:38-0400 Body weight 71 kg Antoinette Agrawal APRN.INTERMEDIATE DESIGNER Work Phone: [facility] 12-09-2023 10:38-0400 Diastolic blood pressure 74 mm[Hg] Antoinette Agrawal APRN.INTERMEDIATE DESIGNER Work Phone: [facility] 12-09-2023 10:38-0400 Heart rate 92 /min Antoinette Agrawal APRN.INTERMEDIATE DESIGNER Work Phone: [facility] 12-09-2023 10:38-0400 Respiratory rate 18 /min Antoinette Agrawal APRN.INTERMEDIATE DESIGNER Work Phone: [facility] 12-09-2023 10:38-0400 SaO2% (BldA) [Mass fraction] 96 % Antoinette Agrawal APRN.INTERMEDIATE DESIGNER Work Phone: [facility] 12-09-2023 10:38-0400 Systolic blood pressure 126 mm[Hg] Antoinette Agrawal APRN.CNP Work Phone: [facility] 10-01-2023 11:13-0500 Body height 157.5 cm Alicia Blount MD Work Phone: [facility] 10-01-2023 11:13-0500 Body weight 67.13 kg Alicia Blount MD Work Phone: [facility] 10-01-2023 11:13-0500 Diastolic blood pressure 80 mm[Hg] Alicia Blount MD Work Phone: [facility] 10-01-2023 11:13-0500 Heart rate 74 /min Alicia Blount MD Work Phone: [facility] 10-01-2023 11:13-0500 Respiratory rate 16 /min Alicia Blount MD Work Phone: [facility] 10-01-2023 11:13-0500 Systolic blood pressure 128 mm[Hg] Alicia Blount MD Work Phone: [facility] 07-31-2023 10:34-0500 Body height 157.[address] Alicia Blount Work Phone: [facility] 07-31-2023 10:34-0500 Body mass index (BMI) [Ratio] 25.7 kg/m2 Dr. Alicia Blount Work Phone: [facility] 07-31-2023 10:34-0500 Body temperature 98.7 [degF] Dr. Alicia Blount Work Phone: [facility] 07-31-2023 10:34-0500 Body weight 63.[address] Alicia Blount Work Phone: [facility] 07-31-2023 10:34-0500 Diastolic blood pressure 66 mm[Hg] Dr. Alicia Blount Work Phone: [facility] 07-31-2023 10:34-0500 Heart rate 72 /min Dr. Alicia Blount Work Phone: 2(211)260-911499 [place] [address] 07-31-2023 10:34-0500 Respiratory rate 16 /min Dr. Alicia Blount Work Phone: 6(636)103-917507 [place] [address] 07-31-2023 10:34-0500 SaO2% (BldA) [Mass fraction] 96 % Dr. Alicia Blount Work Phone: 5(633)383-833699 [place] [address] 07-31-2023 10:34-0500 Systolic blood pressure 136 mm[Hg] Dr. Alicia Blount Work Phone: 0(581)317-091307 [place] [address] 07-19-2023 14:02-0500 Body mass index (BMI) [Ratio] 25.9 kg/m2 Dr. Alicia Blount Work Phone: 5(744)224-372307 [place] [address] 07-19-2023 14:02-0500 Body weight 64.[address] Alicia Blount Work Phone: 7(845)982-977707 [place] [address] 07-16-2023 13:49-0500 Body temperature 97.5 [degF] Dr. Alicia Blount Work Phone: 7(289)772-892607 [place] [address] 07-16-2023 13:49-0500 Diastolic blood pressure 76 mm[Hg] Dr. Alicia Blount Work Phone: 0(536)989-718007 [place] [address] 07-16-2023 13:49-0500 Heart rate 65 /min Dr. Alicia Blount Work Phone: 6(064)057-042607 [place] [address] 07-16-2023 13:49-0500 Respiratory rate 15 /min Dr. Alicia Blount Work Phone: 5(074)906-900507 [place] [address] 07-16-2023 13:49-0500 SaO2% (BldA) [Mass fraction] 99 % Dr. Alicia Blount Work Phone: 8(294)063-697007 [place] [address] 07-16-2023 13:49-0500 Systolic blood pressure 116 mm[Hg] Dr. Alicia Blount Work Phone: 4(462)382-754107 [place] [address] 07-02-2023 14:57-0500 Body weight 65.32 kg Clarencesanta Mcgregors COLLEGE ATHLETE.INSPECTOR OPEN DIE Work Phone: [facility] 07-02-2023 14:57-0500 Diastolic blood pressure 78 mm[Hg] Clarence Berry COLLEGE ATHLETE.INSPECTOR OPEN DIE Work Phone: [facility] 07-02-2023 14:57-0500 Heart rate 75 /min Clarence Berry COLLEGE ATHLETE.INSPECTOR OPEN DIE Work Phone: [facility] 07-02-2023 14:57-0500 Respiratory rate 16 /min Clarence Berry COLLEGE ATHLETE.INSPECTOR OPEN DIE Work Phone: [facility] 07-02-2023 14:57-0500 Systolic blood pressure 139 mm[Hg] Clarence Berry COLLEGE ATHLETE.INSPECTOR OPEN DIE Work Phone: [facility] 06-26-2023 11:41-0500 Body temperature 97.6 [degF] Dr. Alicia Blount Work Phone: [facility] 06-26-2023 11:41-0500 Diastolic blood pressure 68 mm[Hg] Dr. Alicia Blount Work Phone: [facility] 06-26-2023 11:41-0500 Heart rate 86 /min Dr. Alicia Blount Work Phone: [facility] 06-26-2023 11:41-0500 Respiratory rate 18 /min Dr. Alicia Blount Work Phone: [facility] 06-26-2023 11:41-0500 SaO2% (BldA) [Mass fraction] 95 % Dr. Alicia Blount Work Phone: [facility] 06-26-2023 11:41-0500 Systolic blood pressure 136 mm[Hg] Dr. Alicia Blount Work Phone: [facility] 06-20-2023 11:36-0500 Body weight 64.[address] Alicia Blount Work Phone: [facility] 06-19-2023 12:49-0500 Body temperature 96.9 [degF] Dr. Alicia Blount Work Phone: 1(424)232-903507 [place] [address] 06-19-2023 12:49-0500 Diastolic blood pressure 68 mm[Hg] Dr. Alicia Blount Work Phone: 5(297)998-353707 [place] [address] 06-19-2023 12:49-0500 Heart rate 82 /min Dr. Alicia Blount Work Phone: 2(588)627-503307 [place] [address] 06-19-2023 12:49-0500 Respiratory rate 17 /min Dr. Alicia Blount Work Phone: 9(380)693-886007 [place] [address] 06-19-2023 12:49-0500 SaO2% (BldA) [Mass fraction] 99 % Dr. Alicia Blount Work Phone: 0(169)612-792607 [place] [address] 06-19-2023 12:49-0500 Systolic blood pressure 122 mm[Hg] Dr. Alicia Blount Work Phone: 7(728)864-135707 [place] [address] 06-19-2023 10:19-0500 Body mass index (BMI) [Ratio] 26.2 kg/m2 Dr. Alicia Blount Work Phone: 1(270)620-564607 [place] [address] 06-19-2023 10:19-0500 Body weight 64.[address] Alicia Blount Work Phone: 7(123)794-797407 [place] [address] 06-18-2023 10:00-0500 Heart rate 72 /min Dr. Alicia Blount Work Phone: 8(722)569-569607 [place] [address] 06-17-2023 14:58-0500 Body temperature 97.3 [degF] Dr. Alicia Blount Work Phone: 0(759)730-627707 [place] [address] 06-17-2023 14:58-0500 Diastolic blood pressure 58 mm[Hg] Dr. Alicia Blount Work Phone: 7(265)983-972607 [place] [address] 06-17-2023 14:58-0500 Respiratory rate 16 /min Dr. Alicia Blount Work Phone: 8(411)239-563207 [place] [address] 06-17-2023 14:58-0500 SaO2% (BldA) [Mass fraction] 96 % Dr. Alicia Blount Work Phone: 8(912)581-959807 [place] [address] 06-17-2023 14:58-0500 Systolic blood pressure 127 mm[Hg] Dr. Alicia Blount Work Phone: 2(162)671-823807 [place] [address] 06-15-2023 14:33-0400 Body height 157.[address] Alicia Blount Work Phone: 1(796)136-571207 [place] [address] 06-15-2023 14:33-0400 Body weight 66.[address] Alicia Blount Work Phone: 2(086)485-040107 [place] [address] 06-13-2023 14:58-0400 Body mass index (BMI) [Ratio] 26.9 kg/m2 Dr. Alicia Blount Work Phone: 3(079)488-138207 [place] [address] 06-13-2023 12:00-0400 Body temperature 98.2 [degF] Dr. Alicia Blount Work Phone: 0(733)519-889507 [place] [address] 06-13-2023 12:00-0400 Diastolic blood pressure 75 mm[Hg] Dr. Alicia Blount Work Phone: 7(961)285-295907 [place] [address] 06-13-2023 12:00-0400 Heart rate 92 /min Dr. Alicia Blount Work Phone: 1(878)855-621007 [place] [address] 06-13-2023 12:00-0400 Respiratory rate 18 /min Dr. Alicia Blount Work Phone: 9(685)225-826507 [place] [address] 06-13-2023 12:00-0400 SaO2% (BldA) [Mass fraction] 100 % Dr. Alicia Blount Work Phone: 6(544)074-644507 [place] [address] 06-13-2023 12:00-0400 Systolic blood pressure 131 mm[Hg] Dr. Alicia Blount Work Phone: 5(057)856-554107 [place] [address] 06-11-2023 10:50-0400 Body weight 65.[address] Alicia Blount Work Phone: 9(344)916-667207 [place] [address] 06-10-2023 21:53-0400 Body mass index (BMI) [Ratio] 26.4 kg/m2 Dr. Alicia Blount Work Phone: 6(614)781-545707 [place] [address] 06-10-2023 19:49-0400 Body temperature 98.4 [degF] Dr. Alicia Blount Work Phone: 5(013)692-665907 [place] [address] 06-10-2023 19:49-0400 Diastolic blood pressure 61 mm[Hg] Dr. Alicia Blount Work Phone: 9(239)636-455807 [place] [address] 06-10-2023 19:49-0400 Heart rate 104 /min Dr. Alicia Blount Work Phone: 2(189)232-472807 [place] [address] 06-10-2023 19:49-0400 Respiratory rate 19 /min Dr. Alicia Blount Work Phone: 6(572)569-587107 [place] [address] 06-10-2023 19:49-0400 SaO2% (BldA) [Mass fraction] 95 % Dr. Alicia Blount Work Phone: 8(503)398-184107 [place] [address] 06-10-2023 19:49-0400 Systolic blood pressure 126 mm[Hg] Dr. Alicia Blount Work Phone: 8(669)398-460107 [place] [address] 06-10-2023 16:59-0400 Body height 157.[address] Alicia Blount Work Phone: 5(137)872-248207 [place] [address] 06-10-2023 16:59-0400 Body mass index (BMI) [Ratio] 27.1 kg/m2 Dr. Alicia Blount Work Phone: 5(789)050-071607 [place] [address] 06-10-2023 16:59-0400 Body weight 67.[address] Alicia Blount Work Phone: 3(178)706-751507 [place] [address] 06-07-2023 13:28-0400 Body mass index (BMI) [Ratio] 26.1 kg/m2 Dr. Alicia Blount Work Phone: 9(085)535-834807 [place] [address] 06-07-2023 13:28-0400 Body temperature 97.8 [degF] Dr. Alicia Blount Work Phone: [facility] 06-07-2023 13:28-0400 Body weight 64.[address] Alicia Blount Work Phone: [facility] 06-07-2023 13:28-0400 Diastolic blood pressure 80 mm[Hg] Dr. Alicia Blount Work Phone: [facility] 06-07-2023 13:28-0400 Heart rate 87 /min Dr. Alicia Blount Work Phone: [facility] 06-07-2023 13:28-0400 Respiratory rate 17 /min Dr. Alicia Blount Work Phone: [facility] 06-07-2023 13:28-0400 SaO2% (BldA) [Mass fraction] 95 % Dr. Alicia Blount Work Phone: [facility] 06-07-2023 13:28-0400 Systolic blood pressure 136 mm[Hg] Dr. Alicia Blount Work Phone: [facility] 06-06-2023 12:30-0400 Body temperature 98.2 [degF] Erik Underwood MD Work Phone: [facility] 06-06-2023 12:30-0400 Diastolic blood pressure 73 mm[Hg] Erik Underwood MD Work Phone: [facility] 06-06-2023 12:30-0400 Heart rate 74 /min Erik Underwood MD Work Phone: [facility] 06-06-2023 12:30-0400 Respiratory rate 15 /min Erik Underwood MD Work Phone: [facility] 06-06-2023 12:30-0400 SaO2% (BldA) [Mass fraction] 97 % Erik Underwood MD Work Phone: [facility] 06-06-2023 12:30-0400 Systolic blood pressure 156 mm[Hg] Erik Underwood MD Work Phone: [facility] 06-06-2023 10:58-0400 Body height 157.5 cm Erik Udnerwood MD Work Phone: [facility] 06-06-2023 10:58-0400 Body weight 65.77 kg Erik Underwood MD Work Phone: [facility] 06-04-2023 09:45-0400 Body height 157.5 cm Radha Balderrama MD Work Phone: [facility] 06-04-2023 09:45-0400 Body temperature 97.81 [degF] Radha Balderrama MD Work Phone: [facility] 06-04-2023 09:45-0400 Body weight 66.13 kg Radha Balderrama MD Work Phone: [facility] 06-04-2023 09:45-0400 Diastolic blood pressure 78 mm[Hg] Radha Balderrama MD Work Phone: [facility] 06-04-2023 09:45-0400 Heart rate 83 /min Radha Balderrama MD Work Phone: [facility] 06-04-2023 09:45-0400 SaO2% (BldA) [Mass fraction] 94 % Radha Balderrama MD Work Phone: [facility] 06-04-2023 09:45-0400 Systolic blood pressure 122 mm[Hg] Radha Balderrama MD Work Phone: [facility] 05-31-2023 09:52-0400 Body weight 65.77 kg Clarence Berry [employer]LE[employer].INSPECTOR OPEN DIE Work Phone: [facility] 05-31-2023 09:52-0400 Diastolic blood pressure 76 mm[Hg] Clarence Berry COLLEGE ATHLETE.INSPECTOR OPEN DIE Work Phone: [facility] 05-31-2023 09:52-0400 Heart rate 78 /min Clarence Berry COLLEGE ATHLETE.INSPECTOR OPEN DIE Work Phone: [facility] 05-31-2023 09:52-0400 Respiratory rate 16 /min Clarence Berry COLLEGE ATHLETE.INSPECTOR OPEN DIE Work Phone: [facility] 05-31-2023 09:52-0400 Systolic blood pressure 133 mm[Hg] Clarence Berry COLLEGE ATHLETE.INSPECTOR OPEN DIE Work Phone: [facility] 04-08-2023 12:38-0400 Body temperature 98.29 [degF] Navya Older COLLEGE ATHLETE.INTERMEDIATE DESIGNER Work Phone: [facility] 04-08-2023 12:38-0400 Body weight 66.59 kg Navya Older COLLEGE ATHLETE.INTERMEDIATE DESIGNER Work Phone: [facility] 04-08-2023 12:38-0400 Diastolic blood pressure 72 mm[Hg] Navya Older COLLEGE ATHLETE.INTERMEDIATE DESIGNER Work Phone: [facility] 04-08-2023 12:38-0400 Heart rate 80 /min Navya Older COLLEGE ATHLETE.INTERMEDIATE DESIGNER Work Phone: [facility] 04-08-2023 12:38-0400 Respiratory rate 22 /min Navya Older COLLEGE ATHLETE.INTERMEDIATE DESIGNER Work Phone: [facility] 04-08-2023 12:38-0400 SaO2% (BldA) [Mass fraction] 98 % Navya Older COLLEGE ATHLETE.INTERMEDIATE DESIGNER Work Phone: [facility] 04-08-2023 12:38-0400 Systolic blood pressure 138 mm[Hg] Navya Older COLLEGE ATHLETE.INTERMEDIATE DESIGNER Work Phone: [facility] 03-07-2023 07:56-0400 Body mass index (BMI) [Ratio] 26.3 kg/m2 Dr. Alicia Blount Work Phone: [facility] 03-07-2023 07:56-0400 Body temperature 97.8 [degF] Dr. Alicia Blount Work Phone: [facility] 03-07-2023 07:56-0400 Body weight 65.[address] Alicia Blount Work Phone: [facility] 03-07-2023 07:56-0400 Diastolic blood pressure 84 mm[Hg] Dr. Alicia Blount Work Phone: 7(741)798-280499 [place] [address] 03-07-2023 07:56-0400 Heart rate 80 /min Dr. Alicia Blount Work Phone: 5(936)201-206299 [place] [address] 03-07-2023 07:56-0400 Respiratory rate 18 /min Dr. Alicia Blount Work Phone: 2(203)035-597707 [place] [address] 03-07-2023 07:56-0400 SaO2% (BldA) [Mass fraction] 97 % Dr. Alicia Blount Work Phone: 9(263)400-348307 [place] [address] 03-07-2023 07:56-0400 Systolic blood pressure 136 mm[Hg] Dr. Alicia Blount Work Phone: 7(634)051-257007 [place] [address] 03-05-2023 10:08-0400 Body mass index (BMI) [Ratio] 27.4 kg/m2 Dr. Alicia Blount Work Phone: 4(423)567-683407 [place] [address] 03-05-2023 10:08-0400 Body temperature 98 [degF] Dr. Alicia Blount Work Phone: 7(670)106-402007 [place] [address] 03-05-2023 10:08-0400 Body weight 68.[address] Alicia Blount Work Phone: 5(691)903-723807 [place] [address] 03-05-2023 10:08-0400 Diastolic blood pressure 80 mm[Hg] Dr. Alicia Blount Work Phone: 6(057)444-920699 [place] [address] 03-05-2023 10:08-0400 Heart rate 70 /min Dr. Alicia Blount Work Phone: 6(201)162-936399 [place] [address] 03-05-2023 10:08-0400 Respiratory rate 16 /min Dr. Alicia Blount Work Phone: 5(479)356-999999 [place] [address] 03-05-2023 10:08-0400 SaO2% (BldA) [Mass fraction] 96 % Dr. Alicia Blount Work Phone: 8(928)560-775907 [place] [address] 03-05-2023 10:08-0400 Systolic blood pressure 146 mm[Hg] Dr. Alicia Blount Work Phone: [facility] 10-17-2022 15:05-0500 Body weight 71.67 kg Clarence Berry COLLEGE ATHLETE.INSPECTOR OPEN DIE Work Phone: [facility] 10-17-2022 15:05-0500 Diastolic blood pressure 80 mm[Hg] Clarence Berry COLLEGE ATHLETE.INSPECTOR OPEN DIE Work Phone: [facility] 10-17-2022 15:05-0500 Heart rate 68 /min Clarence Berry COLLEGE ATHLETE.INSPECTOR OPEN DIE Work Phone: [facility] 10-17-2022 15:05-0500 Respiratory rate 16 /min Clarence Berry COLLEGE ATHLETE.INSPECTOR OPEN DIE Work Phone: [facility] 10-17-2022 15:05-0500 SaO2% (BldA) [Mass fraction] 98 % Clarence Berry COLLEGE ATHLETE.INSPECTOR OPEN DIE Work Phone: [facility] 10-17-2022 15:05-0500 Systolic blood pressure 130 mm[Hg] Clarence Berry COLLEGE ATHLETE.INSPECTOR OPEN DIE Work Phone: [facility] 10-10-2022 10:10-0500 Body weight 71.67 kg Clarence Berry COLLEGE ATHLETE.INSPECTOR OPEN DIE Work Phone: [facility] 10-10-2022 10:10-0500 Diastolic blood pressure 88 mm[Hg] Clarence Berry COLLEGE ATHLETE.INSPECTOR OPEN DIE Work Phone: [facility] 10-10-2022 10:10-0500 Heart rate 72 /min Clarence Berry COLLEGE ATHLETE.INSPECTOR OPEN DIE Work Phone: [facility] 10-10-2022 10:10-0500 Respiratory rate 16 /min Clarence Berry COLLEGE ATHLETE.INSPECTOR OPEN DIE Work Phone: [facility] 10-10-2022 10:10-0500 SaO2% (BldA) [Mass fraction] 98 % Clarence Berry COLLEGE ATHLETE.INSPECTOR OPEN DIE Work Phone: [facility] 10-10-2022 10:10-0500 Systolic blood pressure 136 mm[Hg] Clarence Berry COLLEGE ATHLETE.INSPECTOR OPEN DIE Work Phone: [facility] 09-30-2022 09:29-0500 Body weight 71.67 kg Alicia Blount MD Work Phone: [facility] 09-30-2022 09:29-0500 Diastolic blood pressure 82 mm[Hg] Alicia Blount MD Work Phone: [facility] 09-30-2022 09:29-0500 Heart rate 84 /min Alicia Blount MD Work Phone: [facility] 09-30-2022 09:29-0500 Respiratory rate 16 /min Alicia Blount MD Work Phone: [facility] 09-30-2022 09:29-0500 Systolic blood pressure 158 mm[Hg] Alicia Blount MD Work Phone: [facility] 08-15-2022 13:00-0500 Body height 157.[address] Alicia Blount Work Phone: [facility] 08-15-2022 13:00-0500 Body weight 71.[address] Alicia Blount Work Phone: [facility] 08-15-2022 13:00-0500 Heart rate 80 /min Dr. Alicia Blount Work Phone: [facility] 08-15-2022 13:00-0500 Inhaled oxygen concentration 21 % Dr. Alicia Blount Work Phone: [facility] 08-15-2022 13:00-0500 SaO2% (BldA) [Mass fraction] 97 % Dr. Alicia Blount Work Phone: [facility] 07-26-2022 13:12-0500 Body mass index (BMI) [Ratio] 28.3 kg/m2 Dr. Alicia Blount Work Phone: [facility] 07-26-2022 13:12-0500 Body temperature 98.4 [degF] Dr. Alicia Blount Work Phone: [facility] 07-26-2022 13:12-0500 Body weight 71.[address] Alicia Blount Work Phone: 5(196)306-698607 [place] [address] 07-26-2022 13:12-0500 Diastolic blood pressure 91 mm[Hg] Dr. Alicia Blount Work Phone: 4(562)995-819507 [place] [address] 07-26-2022 13:12-0500 Heart rate 71 /min Dr. Alicia Blount Work Phone: 6(547)094-109507 [place] [address] 07-26-2022 13:12-0500 Respiratory rate 18 /min Dr. Alicia Blount Work Phone: 8(501)826-582007 [place] [address] 07-26-2022 13:12-0500 SaO2% (BldA) [Mass fraction] 97 % Dr. Alicia Blount Work Phone: 1(236)857-121707 [place] [address] 07-26-2022 13:12-0500 Systolic blood pressure 186 mm[Hg] Dr. Alicia Blount Work Phone: 3(223)661-411507 [place] [address] 05-26-2022 08:29-0400 Body mass index (BMI) [Ratio] 29 kg/m2 Dr. Alicia Blount Work Phone: 8(852)197-414507 [place] [address] 05-26-2022 08:29-0400 Body temperature 97.6 [degF] Dr. Alicia Blount Work Phone: 7(917)334-747107 [place] [address] 05-26-2022 08:29-0400 Body weight 72.[address] Alicia Blount Work Phone: 9(046)546-133607 [place] [address] 05-26-2022 08:29-0400 Diastolic blood pressure 84 mm[Hg] Dr. Alicia Blount Work Phone: 8(403)137-470507 [place] [address] 05-26-2022 08:29-0400 Heart rate 75 /min Dr. Alicia Blount Work Phone: 9(078)645-223907 [place] [address] 05-26-2022 08:29-0400 Respiratory rate 18 /min Dr. Alicia Blount Work Phone: 6(026)585-143307 [place] [address] 05-26-2022 08:29-0400 SaO2% (BldA) [Mass fraction] 94 % Dr. Alicia Blount Work Phone: [facility] 05-26-2022 08:29-0400 Systolic blood pressure 151 mm[Hg] Dr. Alicia Blount Work Phone: [facility] 05-16-2022 10:18-0400 Body temperature 97.2 [degF] Kaci Praisler-Wood COLLEGE ATHLETE.INTERMEDIATE DESIGNER Work Phone: [facility] 05-16-2022 10:18-0400 Body weight 71.22 kg Kaci Praisler-Wood COLLEGE ATHLETE.INTERMEDIATE DESIGNER Work Phone: [facility] 05-16-2022 10:18-0400 Diastolic blood pressure 76 mm[Hg] Kaci Praisler-Wood COLLEGE ATHLETE.INTERMEDIATE DESIGNER Work Phone: [facility] 05-16-2022 10:18-0400 Heart rate 83 /min Kaci Praisler-Wood COLLEGE ATHLETE.INTERMEDIATE DESIGNER Work Phone: [facility] 05-16-2022 10:18-0400 Respiratory rate 18 /min Kaci Praisler-Wood COLLEGE ATHLETE.INTERMEDIATE DESIGNER Work Phone: [facility] 05-16-2022 10:18-0400 SaO2% (BldA) [Mass fraction] 96 % Kaci Praisler-Wood COLLEGE ATHLETE.INTERMEDIATE DESIGNER Work Phone: [facility] 05-16-2022 10:18-0400 Systolic blood pressure 140 mm[Hg] Kaci Praisler-Wood COLLEGE ATHLETE.INTERMEDIATE DESIGNER Work Phone: [facility] 05-02-2022 11:51-0400 Body weight 71.67 kg Clarence Berry COLLEGE ATHLETE.INSPECTOR OPEN DIE Work Phone: [facility] 05-02-2022 11:51-0400 Diastolic blood pressure 82 mm[Hg] Clarence Berry COLLEGE ATHLETE.INSPECTOR OPEN DIE Work Phone: [facility] 05-02-2022 11:51-0400 Heart rate 88 /min Clarence Berry COLLEGE ATHLETE.INSPECTOR OPEN DIE Work Phone: [facility] 05-02-2022 11:51-0400 Respiratory rate 16 /min Clarence Berry COLLEGE ATHLETE.INSPECTOR OPEN DIE Work Phone: [facility] 05-02-2022 11:51-0400 SaO2% (BldA) [Mass fraction] 96 % Clarence Jamal COLLEGE ATHLETE.INSPECTOR OPEN DIE Work Phone: [facility] 05-02-2022 11:51-0400 Systolic blood pressure 132 mm[Hg] Clarence Berry COLLEGE ATHLETE.INSPECTOR OPEN DIE Work Phone: [facility] 04-25-2022 11:16-0400 Body mass index (BMI) [Ratio] 28.7 kg/m2 Dr. Alicia Blount Work Phone: [facility] Work Phone: 04-25-2022 11:16-0400 Body temperature 97.4 [degF] Dr. Alicia Blount Work Phone: [facility] Work Phone: 04-25-2022 11:16-0400 Body weight 71.[address] Alicia Blount Work Phone: [facility] Work Phone: 04-25-2022 11:16-0400 Diastolic blood pressure 82 mm[Hg] Dr. Alicia Blount Work Phone: [facility] Work Phone: 04-25-2022 11:16-0400 Heart rate 80 /min Dr. Alicia Blount Work Phone: [facility] Work Phone: 04-25-2022 11:16-0400 Respiratory rate 16 /min Dr. Alicia Blount Work Phone: [facility] Work Phone: 04-25-2022 11:16-0400 SaO2% (BldA) [Mass fraction] 97 % Dr. Alicia Blount Work Phone: [facility] Work Phone: 04-25-2022 11:16-0400 Systolic blood pressure 138 mm[Hg] Dr. Alicia Blount Work Phone: [facility] Work Phone: 03-31-2022 14:17-0400 Body weight 70.31 kg Alicia Blount MD Work Phone: [facility] 03-31-2022 14:17-0400 Diastolic blood pressure 78 mm[Hg] Alicia Blount MD Work Phone: [facility] 03-31-2022 14:17-0400 Heart rate 76 /min Alicia Blount MD Work Phone: [facility] 03-31-2022 14:17-0400 SaO2% (BldA) [Mass fraction] 95 % Alicia Blount MD Work Phone: [facility] 03-31-2022 14:17-0400 Systolic blood pressure 128 mm[Hg] Alicia Blount MD Work Phone: [facility] 01-30-2022 12:25-0400 Body temperature 98.29 [degF] Anu Bogner PA-C Work Phone: [facility] 01-30-2022 12:25-0400 Body weight 70.67 kg Anu Bogner PA-C Work Phone: [facility] 01-30-2022 12:25-0400 Diastolic blood pressure 80 mm[Hg] Anu Bogner PA-C Work Phone: [facility] 01-30-2022 12:25-0400 Heart rate 80 /min Anu Bogner PA-C Work Phone: [facility] 01-30-2022 12:25-0400 Respiratory rate 16 /min Anu Bogner PA-C Work Phone: [facility] 01-30-2022 12:25-0400 SaO2% (BldA) [Mass fraction] 97 % Anu JAQUEZ-C Work Phone: [facility] 01-30-2022 12:25-0400 Systolic blood pressure 122 mm[Hg] Anu Pablo PA-C Work Phone: [facility] 12-21-2021 09:00-0400 Diastolic blood pressure 82 mm[Hg] Erik Underwood MD Work Phone: [facility] 12-21-2021 09:00-0400 Heart rate 62 /min Erik Underwood MD Work Phone: [facility] 12-21-2021 09:00-0400 Respiratory rate 14 /min Erik Underwood MD Work Phone: [facility] 12-21-2021 09:00-0400 SaO2% (BldA) [Mass fraction] 96 % Erik Underwood MD Work Phone: [facility] 12-21-2021 09:00-0400 Systolic blood pressure 160 mm[Hg] Erik Underwood MD Work Phone: [facility] 12-21-2021 08:22-0400 Body temperature 97.7 [degF] Erik Underwood MD Work Phone: [facility] 12-21-2021 07:07-0400 Body height 157.5 cm Erik Underwood MD Work Phone: [facility] 12-21-2021 07:07-0400 Body weight 67.59 kg Erik Underwood MD Work Phone: [facility] 11-22-2021 13:09-0400 Body weight 67.59 kg Alicia Blount MD Work Phone: [facility] 11-22-2021 13:09-0400 Diastolic blood pressure 62 mm[Hg] Alicia Blount MD Work Phone: [facility] 11-22-2021 13:09-0400 Heart rate 82 /min Alicia Blount MD Work Phone: [facility] 11-22-2021 13:09-0400 Systolic blood pressure 122 mm[Hg] Alicia Blount MD Work Phone: [facility] Encounters Encounter Date Encounter Type Care Provider Facility Start: 05-29-2025 End: 05-29-2025 ambulatory Genny Munguia [facility] Start: 05-27-2025 End: 05-27-2025 ambulatory Violette Florencia Facility:[facility] Start: 05-21-2025 End: 05-21-2025 ambulatory Violette Don [facility] Start: 05-07-20[facility] Start: 05-05-2025 End: 05-05-2025 ambulatory Liliya Garcia [facility] Start: 04-28-2025 [facility] Start: 04-20-2025 End: 04-20-2025 [facility] Start: 04-08-2025 Encounter for other preprocedural examination Violette Don [facility] Start: 04-07-2025 ambulatory Nacho costa Jay Facili ty:[facility] Start: 04-07-2025 End: 04-09-2025 Evaluation and management of inpatient Nacho costa Jay Facility:[facility] Start: 04-02-2025 ambulatory Anna Martinez cility:[facility] Start: 04-01-2025 End: 04-01-2025 ambulatory [facility] Facility:[facility] Start: 03-31-2025 ambulatory [facility] Facility: [facility] Start: 03-26-2025 End: 03-26-2025 [facility]ulatory [facility] Start: 03-26-2025 End: 03-26-2025 Patient encounter procedure Selam Shepard MA [facility] Comment on above: Population Health Na vigation Outreach ([place] ) Start: 03-19-2025 End: 03-19-2025 ambulatory Hernandojaswinder [facility] Start: 02-26-2025 End: 02-26-2025 ambulatory Alicia Blount Facility:[facility] Start: 02-23-2025 End: 02-23-2025 ambulatory Selam Besancon MA [facility] Start: 02-23-2025 End: 02-23-2025 Patient encounter procedure [facility] Comment on above: Population Health Na vigation Outreach ([place]/[facility] ) Start: 02-19-2025 End: 02-19-2025 ambulatory Alicia Blount Facility:[facility] Start: 02-17-2025 End: 02-17-2025 ambulatory Hernando Pandya Facility:[facility] Start: 02-04-2025 End: 02-04-2025 ambulatory Alicia Blount Facility:[facility] Start: 01-28-2025 ambulatory Amaury JAQUEZ Facilit y:[facility] Start: 01-22-2025 End: 01-22-2025 ambulatory Selam [facility]ate [facility] Start: 01-22-2025 End: 01-22-2025 Patient encounter procedure Selam Dayate [facility] Comment on above: Population Health Na vigation Outreach ([place]/[facility] ) Start: 01-15-2025 End: 01-15-2025 ambulatory Hernando Pandya Facility[facility] Start: 01-01-2025 End: 01-01-2025 ambulatory Michelle Zuleta Facility[facility] Start: 12-23-2024 End: 12-23-2024 ambulatory Selam Dayate 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) (Primary Dx) Start: 12-15-2024 End: 12-15-2024 ambulatory Hernando Pandya Facility:[facility] Start: 12-15-2024 End: 12-16-2024 Telephone encounter Alicia Blount MD Work Phone: [facility] [place] Comment on above: OT plan of care Start: 12-15-2024 End: 12-15-2024 ambulatory Amaury JAQUEZ Facility:[facility] Start: 12-12-2024 End: 12-12-2024 ambulatory Amaury JAQUEZ Facility:[facility] Start: 12-10-2024 End: 12-11-2024 Telephone encounter Alicia Blount MD Work Phone: [facility] [place] Comment on above: Delay of care- OT WC [facility] Start: 12-08-2024 End: 12-08-2024 ambulatory Aniket Guo Facility:[facility] Start: 11-20-2024 End: 11-20-2024 ambulatory [facility] [place] [facility] Start: 11-20-2024 End: 11-20-2024 Patient encounter procedure Selam Shepard [facility] Comment on above: Population Health Na vigation Outreach ([place] ) Start: 11-19-2024 End: 11-20-2024 Telephone encounter Alicia Blount MD Work Phone: [facility] [place] Comment on above: Occupatioal Therapy Updated Plan of Care Start: 11-12-2024 ambulatory Alicia D Talampas Facilit y:[facility] Start: 11-11-2024 End: 11-11-2024 ambulatory Alicia D Talampas Facility:[facility] Start: 11-03-2024 End: 11-03-2024 ambulatory Alicia D Talampas Facility:[facility] Start: 11-03-2024 End: 11-03-2024 ambulatory Alicia D Talampas Facility:[facility] Start: 10-27-2024 End: 10-29-2024 Telephone encounter Alicia Blount MD Work Phone: [facility] [place] Comment on above: [facility] HH OT updated PO C Medication Problem Start: 10-25-2024 End: 10-25-2024 ambulatory Gabrielle Murdock RN NURSE TOOL CRIB CLERK Start: 10-25-2024 End: 10-25-2024 Follow-up encounter Gabrielle Murdock RN NURSE TOOL CRIB CLERK Comment on above: Follow Up Start: 10-25-2024 End: 12-24-2024 Telephone encounter Ligia Schilling DO Work Phone: [facility] Start: 10-24-2024 End: 10-27-2024 Telephone encounter Alicia Blount MD Work Phone: [facility] [place] Comment on above: Patient Update Start: 10-23-2024 End: 10-28-2024 Telephone encounter Alicia Blount MD Work Phone: [facility] [place] Comment on above: plan of care Start: 10-20-2024 End: 10-21-2024 Telephone encounter Alicia Blount MD Work Phone: [facility] [place] Comment on above: Home Health Point of Care Results Start: 10-20-2024 End: 10-20-2024 ambulatory Alicia D Talampas Facility:[facility] Start: 10-17-2024 End: 10-17-2024 Telephone encounter Alicia Blount MD Work Phone: [facility] [place] Comment on above: Follow HH Start: 10-07-2024 ambulatory Alicia D Talampas [facility]ilit [facility] Start: 09-21-2024 ambulatory Alicia D Talampas Facilit [facility] Start: 09-21-2024 End: 10-17-2024 Evaluation and management of inpatient Alicia D Talampas Facility:[facility] Start: 09-05-2024 ambulatory Alicia D Talampas Facilit [facility] Start: 09-05-2024 ambulatory Alicia D Talampas Facilit y:[facility] Start: 08-29-2024 ambulatory Nikky Pastor Facility:[facility] Start: 08-29-2024 End: 09-21-2024 Evaluation and management of inpatient Alicia D Talampas Facility:[facility] Start: 08-27-2024 ambulatory Alicia D Talampas Facilit [facility] Start: 08-25-2024 ambulatory Alicia D Talampas Facilit y:[facility] Start: 08-25-2024 ambulatory Alicia D Talampas Facilit [facility] Start: 08-25-2024 End: 08-29-2024 Evaluation and management of inpatient Alicia D Talampas Facility:[facility] Start: 08-13-2024 End: 08-13-2024 ambulatory Alicia D Talampas Facility:[facility] Start: 08-12-2024 End: 08-12-2024 ambulatory Alicia D Talampas Facility:[facility] Start: 08-07-2024 End: 08-08-2024 ambulatory Alicia D Talampas Facility:[facility] Start: 08-07-2024 End: 08-25-2024 Evaluation and management of inpatient Alicia D Talampas Facility:[facility] Start: 08-03-2024 ambulatory Alicia D Talampas Facilit [facility] Start: 08-03-2024 End: 08-07-2024 Evaluation and management of inpatient Alicia D Talampas Facility:[facility] Start: 08-03-2024 End: 08-03-2024 ambulatory Alicia D Talampas Facility:[facility] Start: 08-01-2024 End: 08-01-2024 Patient Outreach Ellen Gonzalez RN Work Phone: Equipment Maintenance Supervisor Management Comment on above: Weekly phone contact (Recurring) for Transitional Care Management Start: 07-15-2024 End: 07-15-2024 ambulatory ALICIA D TALAMPAS Facility:[facility] Start: 07-15-2024 End: 07-15-2024 Transitional care manage srvc 7 day discharge Alicia Blount MD Work Phone: [facility] [place] Comment on above: Syncope, unspecified syncope type (Primary Dx); Diabetes 1.5, managed as type 1 (HCC); Recurrent bronchospasm; Bronchiectasis without complication (HCC); Chronic cough Start: 07-14-2024 End: 07-14-2024 Patient Outreach Ellen Gonzalez RN Work Phone: Equipment Maintenance Supervisor Management Comment on above: Initial phone contac t for Transitional Care Management Start: 07-11-2024 ambulatory Alicia D Talampas Facilit [facility] Start: 07-10-2024 ambulatory Alicia D Talampas Facilit y:[facility] Start: 07-10-2024 End: 07-12-2024 Evaluation and management of inpatient Alicia Rhonda Jama Facility:[facility] Start: 07-01-2024 End: 07-01-2024 ambulatory Alicia Rhonda Hyattampshanika Facility:[facility] Start: 06-23-2024 End: 06-23-2024 ambulatory Alicia D Prashanthampshanika Facility:[facility] Start: 06-16-2024 End: 06-16-2024 ambulatory Alicia Rhonda Blount Facility:[facility] Start: 05-27-2024 End: 05-27-2024 Office outpatient visit 25 minutes Alicia Blount MD Work Phone: [facility] [place] Comment on above: Anxiety (Primary Dx) ; Essential hypertension; Diabetes 1.5, managed as type 1 (HCC); Stress incontinence; Viral syndrome; Right leg swelling Start: 05-27-2024 End: 05-27-2024 ambulatory ALICIA Rhonda HYATTDEEPAK Facility:[facility] Start: 05-01-2024 End: 05-01-2024 ambulatory Alicia Blount MD Work Phone: [facility] [place] Comment on above: Headache Start: 04-28-2024 End: 04-28-2024 Telephone encounter Nurse Card Admin [facility] Work Phone: Cardiology Comment on above: Stress Test Instruct ions for 05/05/24 Start: 03-18-2024 Refill Alicia kirkpatrick MD Work Phone: [facility] Comment on above: Refill Request Start: 03-04-2024 Telephone encounter Nurse Card Admin [facility] Work Phone: Cardiology Comment on above: Stress Test Instruct ions for 03/10/24 Start: 02-17-2024 End: 02-17-2024 Patient encounter procedure Antoinette Agrawal APRN.CNP Work Phone: [facility] [facility] Comment on above: SOB (shortness of br eath) (Primary Dx) Start: 02-12-2024 End: 02-12-2024 Subsequent hospital visit by physician [facility] [place] Work Phone: Radiology Comment on above: Acute cough [R05.1] Start: 02-12-2024 End: 02-12-2024 Patient encounter procedure Martin Munguia COLLEGE ATHLETE.INTERMEDIATE DESIGNER Work Phone: [facility] Comment on above: Sinobronchitis (Prim jessica Dx); Acute cough Start: 01-31-2024 Telephone encounter Clarence mccormack COLLEGE ATHLETE.INSPECTOR OPEN DIE Work Phone: Radiology Comment on above: Orders Start: 01-31-2024 End: 01-31-2024 Office outpatient visit 15 minutes Clarence Berry COLLEGE ATHLETE.INSPECTOR OPEN DIE Work Phone: [facility] [place] Comment on above: Diabetes 1.5, manage d as type 1 (HCC) (Primary Dx); Screening for diabetic retinopathy; Chest pain, unspecified type; Lightheadedness; Syncope, unspecified syncope type Start: 01-14-2024 Refill Alicia kirkpatrick MD Work Phone: Internal [facility] Comment on above: Refill Request Start: 12-24-2023 Refill Alicia kirkpatrick MD Work Phone: [facility] [place] Comment on above: Refill Request Start: 12-11-2023 Telephone encounter Simran wells COLLEGE ATHLETE.INTERMEDIATE DESIGNER Work Phone: [facility] Comment on above: Results Start: 12-09-2023 End: 12-09-2023 Patient encounter procedure Antoinette Agrawal COLLEGE ATHLETE.INTERMEDIATE DESIGNER Work Phone: [facility] Comment on above: Urinary frequency (P rimary Dx) Start: 10-01-2023 End: 10-01-2023 Office outpatient visit 25 minutes Alicia Blount MD Work Phone: [facility] [place] Comment on above: Diabetes mellitus du e [...] Alicia rothman MD Work Phone: [facility] [place] Comment on above: Orders Start: 08-10-2023 End: 08-10-[address] Alicia Blount Work Phone: [facility] Work Phone: Start: 08-10-2023 End: 08-10-[address] Alicia Blount Work Phone: [facility] Work Phone: Start: 07-31-2023 End: 07-31-[address] Alicia Blount Work Phone: [facility] Endocrinology Work Phone: Start: 07-19-2023 Refill Alicia kirkpatrick MD Work Phone: [facility] [place] Comment on above: Refill Request Start: 07-19-2023 End: 07-19-[address] Alicia Blount Work Phone: [facility] Orthopaedic Specia Work Phone: Start: 07-16-2023 End: 07-16-[address] Alicia Blount Work Phone: [facility] Neurology Work Phone: Start: 07-02-2023 End: 07-02-2023 Office outpatient visit 25 minutes Clarence Berry APRN.INSPECTOR OPEN DIE Work Phone: [facility] [place] Comment on above: Debility (Primary Dx ); Diabetes 1.5, managed as type 1 (HCC); Sepsis, due to unspecified organism, unspecified whether acute organ dysfunction present (HCC); Pain in left ta Start: 06-28-2023 Telephone encounter Alicia rothman MD Work Phone: [facility] [place] Comment on above: FYI-PT plan of care Start: 06-27-2023 Telephone encounter Alicia rothman MD Work Phone: [facility] [place] Comment on above: Home Health Update Start: 06-15-2023 End: 06-15-[address] Alicia Blount Work Phone: [facility] Work Phone: Start: 06-15-2023 End: 06-15-[address] Alicia Blount Work Phone: [facility] Work Phone: Start: 06-13-2023 End: 06-13-[address] Alicia Blount Work Phone: [facility] Work Phone: Start: 06-13-2023 End: 06-13-[address] Alicia Blount Work Phone: [facility]-Cat Scan, [facility] Work Phone: Start: 06-13-2023 End: 06-26-2023 Evaluation and management of inpatient Dr. Alicia Blount Work Phone: [facility]-Transitional Care Unit Start: 06-13-2023 Non-patient / Non-visit Dr. Hellen Blount Work Phone: [facility] Inpatient Physicians Work Phone: Start: 06-12-2023 Non-patient / Non-visit Dr. Hellen Blount Work Phone: [facility] Inpatient Physicians Work Phone: Start: 06-11-2023 Non-patient / Non-visit Dr. Hellen Blount Work Phone: [facility] Inpatient Physicians Work Phone: Start: 06-10-2023 End: 06-13-2023 Evaluation and management of inpatient Dr. Alicia Blount Work Phone: [facility]-Medical Surgical 3 Work Phone: Start: 06-07-2023 End: 06-07-[address] Alicia Blount Work Phone: [facility] Neurology Work Phone: Start: 06-06-2023 ambulatory SABINO Sauer ty:[facility] Start: 06-06-2023 End: 06-06-2023 Subsequent hospital visit by physician Erik Underwood MD Work Phone: [facility] Endoscopy Comment on above: 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 [K22.70] Start: 06-05-2023 Telephone encounter Alicia rothman MD Work Phone: [facility] [place] Comment on above: Patient Question Start: 06-04-2023 End: 06-04-2023 Patient encounter procedure Radha Balderrama MD Work Phone: General Surgery Comment on above: 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 Start: 05-31-2023 End: 05-31-2023 Office outpatient visit 25 minutes Clarence Berry COLLEGE ATHLETE.INSPECTOR OPEN DIE Work Phone: [facility] [place] Comment on above: Bronchiectasis witho ut complication (HCC) (Primary Dx); Carcinoid bronchial adenoma, 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HCC); Encounter for immunization; 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; Essential hypertension; Anxiety Start: 04-08-2023 End: 04-08-2023 Patient encounter procedure Navya Thrasher APRN.INTERMEDIATE DESIGNER Work Phone: [facility] Comment on above: Viral URI (Primary D x); Right ear pain Start: 03-28-2023 Telephone encounter Alicia rothman MD Work Phone: [facility] [place] Comment on above: Medication Question Start: 03-07-2023 End: 03-07-[address] Alicia Blount Work Phone: [facility] Work Phone: Start: 03-05-2023 End: 03-05-[address] Alicia Blount Work Phone: [facility] Endocrinology Work Phone: Start: 02-12-2023 Refill Alicia kirkpatrick MD Work Phone: [facility] [place] Comment on above: Opened In Error Start: 02-08-2023 Refill Nusrat Meier Deepa dstrom [facility] [place] Comment on above: Refill Request Start: 01-25-2023 Telephone encounter Alicia rothman MD Work Phone: [facility] [place] Comment on above: Orders Start: 01-01-2023 End: 01-01-2023 Subsequent hospital visit by physician Xr [facility] [place] Work Phone: Radiology Comment on above: Foot pain, right [M7 9.671] Start: 10-17-2022 End: 10-17-2022 Office outpatient visit 25 minutes Clarence Berry COLLEGE ATHLETE.INSPECTOR OPEN DIE Work Phone: [facility] [place] Comment on above: Intractable acute po st-traumatic headache (Primary Dx); Contusion of right foot, initial encounter; Contusion of sabianist region, initial encounter; Injury of coccyx, initial encounter; Facial pain; Jaw pain Start: 10-11-2022 Telephone encounter Alicia rothman MD Work Phone: [facility] [place] Comment on above: Insurance Authorizat ion Start: 10-10-2022 End: 10-10-2022 Subsequent hospital visit by physician Ct [facility] Wstr (I-Stat) Work Phone: Cat Scan Comment on above: Injury of head, subs equent encounter [S09.90XD] Start: 10-10-2022 End: 10-10-2022 Office outpatient visit 25 minutes Clarence Mcgregors COLLEGE ATHLETE.INSPECTOR OPEN DIE Work Phone: [facility] [place] Comment on above: Intractable acute po st-traumatic headache (Primary Dx); Contusion of right foot, initial encounter; Contusion of sabianist region, initial encounter; Injury of coccyx, initial encounter; Facial pain; Jaw pain; Injury of head, subsequent encounter Start: 09-30-2022 End: 09-30-2022 Office outpatient visit 40 minutes Alicia Blount MD Work Phone: [facility] [place] Comment on above: Diabetes mellitus du e to underlying condition with diabetic neuropathy, with long-term current use of insulin (HCC) (Primary Dx); Contusion of right foot, initial encounter; Contusion of sabianist region, initial encounter; Injury of coccyx, initial encounter; Facial pain; Jaw pain; Anxiety; Vitamin D deficiency Start: 08-21-2022 Telephone encounter Alicia rothman MD Work Phone: [facility] [place] Comment on above: Results Start: 08-18-2022 Non-patient / Non-visit Dr. Hellen Blount Work Phone: [facility] Start: 08-18-2022 End: 08-18-[address] Alicia Blount Work Phone: [facility] Work Phone: Start: 08-18-2022 End: 08-18-[address] Alicia Blount Work Phone: [facility]-Cardiovascular Services Start: 08-15-2022 Non-patient / Non-visit Dr. Hellen Blount Work Phone: [facility] Start: 08-15-2022 End: 08-15-[address] Alicia Blount Work Phone: [facility] Work Phone: Start: 08-15-2022 End: 08-15-[address] Alicia Blount Work Phone: [facility]-Pulmonary Services/Neurology Start: 08-11-2022 Non-patient / Non-visit Dr. Hellen Blount Work Phone: [facility] Start: 08-09-2022 End: 08-09-[address] Alicia Blount Work Phone: [facility] Work Phone: Start: 08-09-2022 End: 08-09-[address] Alicia Blount Work Phone: [facility]-Pulmonary Services/Neurology Start: 08-02-2022 Telephone encounter Alicia rothman MD Work Phone: [facility] [place] Comment on above: Orders Start: 07-26-2022 End: 07-26-[address] [facility] Start: 06-23-2022 Telephone encounter Alicia rothman MD Work Phone: [address] [place] [address] Comment on above: Refill Request Start: 06-16-2022 Telephone encounter Alicia rothman MD Work Phone: [facility] [place] Comment on above: Faxed ECHO results Refill Request Start: 05-26-2022 Telephone encounter Alicia rothman MD Work Phone: [facility] [place] Comment on above: Patient Question Start: 05-26-2022 End: 05-26-[address] Alicia Blount Work Phone: [facility] Endocrinology Start: 05-17-2022 Telephone encounter Lyly sanford PA-C Work Phone: [facility] Comment on above: Results Start: 05-16-2022 End: 05-16-2022 Patient encounter procedure Kaci Savage APRN.INTERMEDIATE DESIGNER Work Phone: [facility] Comment on above: Suspected COVID-19 v irus infection (Primary Dx) Start: 05-15-2022 Telephone encounter Alicia rothman MD Work Phone: [facility] [place] Comment on above: Flu Like Symptoms Start: 05-02-2022 End: 05-02-2022 Patient encounter procedure Clarence Berry APRN.INSPECTOR OPEN DIE Work Phone: [facility] [place] Comment on above: Osteoporosis, unspec ified osteoporosis type, unspecified pathological fracture presence (Primary Dx); Anxiety; Encounter for immunization Start: 04-25-2022 End: 04-25-[address] Alicia Blount Work Phone: [facility] Medicine [facility] Start: 04-18-2022 Telephone encounter Alicia rothman MD Work Phone: [facility] [place] Comment on above: Results (Bone Densit y/) Start: 04-03-2022 End: 04-03-2022 Subsequent hospital visit by physician Bone Density [facility] Work Phone: Radiology Comment on above: Asymptomatic postmen opausal status [Z78.0] Start: 03-31-2022 End: 03-31-2022 Office outpatient visit 25 minutes Alicia Blount MD Work Phone: [facility] [place] Comment on above: Vitamin D deficiency (Primary Dx); Chronic cough; Vitamin B6 deficiency; Essential hypertension; Diabetes mellitus due to underlying condition with diabetic neuropathy, with long-term current use of insulin (HCC); Hyperlipidemia, unspecified hyperlipidemia type; Left lateral epicondylitis; Radial styloid tenosynovitis of left hand; Asymptomatic postmenopausal status Start: 01-30-2022 End: 01-30-2022 Subsequent hospital visit by physician Xr [facility] Work Phone: Radiology Comment on above: Ankle injury, initia l encounter [S99.919A] Start: 01-30-2022 End: 01-30-2022 Office outpatient visit 15 minutes Anu Pablo PA-C Work Phone: [facility] Comment on above: Ankle injury, initia l encounter (Primary Dx) Start: 01-13-2022 Telephone encounter Alicia rothman MD Work Phone: [facility] [place] Comment on above: Patient Question Start: 01-07-2022 Refill Alicia kirkpatrick MD Work Phone: [facility] [place] Comment on above: Refill Request Start: 01-02-2022 Refill Alicia kirkpatrick MD Work Phone: [facility] [place] Comment on above: Refill Request Start: 12-21-2021 End: 12-21-2021 Subsequent hospital visit by physician Erik Underwood MD Work Phone: [facility] Endoscopy Comment on above: History of Gonzales's esophagus [Z87.19] Start: 12-12-2021 Telephone encounter Alicia rothman MD Work Phone: [facility] [place] Comment on above: Patient Question (EG D, medication questions) Start: 12-01-2021 Refill Alicia kirkpatrick MD Work Phone: [facility] [place] Comment on above: Refill Request Start: 11-22-2021 End: 11-22-2021 Office outpatient visit 40 minutes Alicia Blount MD Work Phone: [facility] [place] Comment on above: Urinary tract infect ion without hematuria, site unspecified (Primary Dx); Chronic cough; Fall, initial encounter; Bilateral leg edema; Diabetes mellitus due to underlying condition with diabetic neuropathy, with long-term current use of insulin ([facility]); Vitamin D deficiency; Essential hypertension; Vitamin B6 deficiency; Encounter for long-term current use of medication; Stomach upset; Gastroesophageal reflux disease, unspecified whether esophagitis present Start: 06-03-2021 End: 06-03-2021 Subsequent hospital visit by physician Merrill [facility] [place] Work Phone: Radiology Comment on above: Suspected 2019 novel coronavirus infection [Z20.822] Procedures Date Procedure Procedure Detail Performing Clinician Start: 02-12-2024 Radiologic exam chest 2 views Martin santana COLLEGE ATHLETE.INTERMEDIATE DESIGNER Work Phone: Start: 01-31-2024 Ecg routine ecg w/least 12 lds i&r only Clarence Berry COLLEGE ATHLETE.INSPECTOR OPEN DIE Work Phone: Start: 12-09-2023 Urnls dip stick/tablet rgnt auto w/o microscopy Antoinette Agrawal APRN.INTERMEDIATE DESIGNER Work Phone: Start: 08-10-[address] MRI [address] cervical spine [address] Alicia Blount Work Phone: Start: 08-10-[address] MRI of lumbar spine Dr[address] Ailcia Blount Work Phone: Start: 07-19-2023 Plain x-ray [...] cleared fda spec home use Sabino Rivera [place] DO Work Phone: Start: 06-06-2023 Esophagogastroduodenoscopy transoral diagnostic Radha Balderrama MD Work Phone: Start: 06-06-2023 Gluc bld gluc mntr dev cleared fda spec home use Sabino Nicole [place] DO Work Phone: Start: 05-31-2023 INFLUENZA VACCINE, PRSV FREE, AGE 65+ YR, HIGH DOSE, QUADRIVALENT (FLUZONE HIGH-DOSE) Clarence Berry APRN.INSPECTOR OPEN DIE Work Phone: Start: 01-01-2023 Radex foot complete minimum 3 views Betsy Cheng MD Work Phone: Start: 10-10-2022 Ct head/brain w/o contrast material Terr i Berry COLLEGE ATHLETE.INSPECTOR OPEN DIE Work Phone: Start: 05-02-2022 INFLUENZA SEASONAL QUADRIVALENT HIGH DOSE AGE 65+ Clarence Berry COLLEGE ATHLETE.INSPECTOR OPEN DIE Work Phone: Start: 04-03-2022 Dxa bone density study 1/> sites axial skel Alicia Blount MD Work Phone: Start: 01-30-2022 Radex ankle complete minimum 3 views Anu Pablo PA-C Work Phone: Start: 12-21-2021 Gluc bld gluc mntr dev cleared fda spec home use Pippa Umina AA Work Phone: Start: 12-21-2021 Esophagoscp rig transoral hypopharynx crv esoph June Limon COLLEGE ATHLETE.INTERMEDIATE DESIGNER Work Phone: Start: 12-21-2021 Gluc bld gluc mntr dev cleared fda spec home use Pippa Umina AA Work Phone: Start: 06-03-2021 Radiologic exam chest 2 views Lyly R Ath juvenal PA-C Work Phone: Start: 11-29-2020 Adult depression screening assessment Alicia Blount MD Work Phone: Plan of Treatment Date Care Activity Detail Author Start: 06-05-2025 End: 06-05-2025 Patient encounter procedure 06/05/2025 9:40 AM EDT Office Visit [facility] [address] [place] [address] Alicia Blount MD [address] [place], [place] [id number] 4 month follow up [facility] [place] Comment on above: 4 month follow up Start: 04-13-2025 Influenza vaccination Influenza Vacc ine (#1) [facility] Start: 01-30-2025 Hepatitis B screening Urine Al bumin:Creatinine Ratio [facility] Start: 01-30-2025 Hepatitis B surface antibody level LDL Cholesterol [facility] Start: 01-26-2025 End: 01-26-2025 Patient encounter procedure 01/26/2025 4:40 PM EDT Office Visit [facility] [place] [address] [facility] [place] [place] [address] Alicia Blount MD [address] [facility] [place] [address] 4 month follow up [facility] [place] Comment on above: 4 month follow up Start: 10-27-2024 End: 10-27-2024 Patient encounter procedure 10/27/2024 10:00 AM EDT Office Visit [facility] [place] [address] [facility] [place] [address] Clarence Berry APRN.INSPECTOR OPEN DIE [address] [facility] [address] 4 mo follow up [facility] [place] Comment on above: 4 mo follow up Start: 10-03-2024 End: 10-03-2024 Patient encounter procedure 10/03/2024 3:00 PM EST Office Visit [facility] [place] [address] [facility] [place] [address] Alicia Blount MD [address] [facility] [place] [address] 4 month follow up [facility] [place] Comment on above: 4 month follow up Start: 09-28-2024 Hepatitis B surface antibody level LDL Cholesterol [facility] Start: 08-13-2024 Advance Directive Discussion Advance Directive Discussion [facility] Start: 07-15-2024 End: 07-15-2024 Patient encounter procedure 07/15/2024 11:20 AM EST Office Visit [facility] [place] [address] [place] [address] Alicia Blount MD [address] [facility] [place] [address] [facility] 07/12/24 for Syncope (Ok per LDT) [facility] [place] Comment on above: [facility] 07/12/24 f or Syncope (Ok per LDT) Start: 05-27-2024 End: 05-27-2024 Patient encounter procedure 05/27/2024 10:00 AM EDT Office Visit [facility] [place] [address] [place] [address] Alicia Blount MD [address] [place] [address] 4 mo follow up [facility] [place] Comment on above: 4 mo follow up Start: 05-05-2024 End: 05-05-2024 Patient encounter procedure 05/05/2024 11:20 AM EDT Office Visit Cardiology [address] [place] [address] Wstr, Nurse Card Admin [facility] [address] [place] [address] Chest pain, unspecified type [R07.9] Cardiology Comment on above: Chest pain, unspecif ied type [R07.9] Start: 05-02-2024 Hemoglobin A1c measurement HbA1C [facility] Start: 04-13-2024 Covid-19 Vaccine ( season) Covid-19 Vaccine ( season) [facility] Start: 04-13-2024 Covid-19 Vaccine ( season) Covid-19 Vaccine () [facility] Start: 04-13-2024 Influenza vaccination Influenza Vacc ine (#1) [facility] Start: 04-03-2024 Screening for osteoporosis Bone Density Screening [facility] Start: 03-10-2024 End: 03-10-2024 Patient encounter procedure 03/10/2024 11:20 AM EDT Office Visit Cardiology [address] [place] [address] Wstr, Nurse Card Admin [facility] [address] [place] [address] Chest pain, unspecified type [R07.9] Cardiology Comment on above: Chest pain, unspecif ied type [R07.9] Start: 03-07-2024 End: 03-07-2024 Patient encounter procedure 03/07/2024 9:00 AM EDT Office Visit Vasculary Surgery [address] [place] [address] S [facility] Status: Needs Scheduling Vasculary Surgery Comment on above: S CAROTID ARTERIES [facility] Status: Needs Scheduling Start: 01-31-2024 End: 01-31-2024 Patient encounter procedure 01/31/2024 10:00 AM EDT Office Visit [facility] [place] [address] [facility] [place] [address] Clarence Berry APRN.INSPECTOR OPEN DIE [address] [place] [address] 4 mo follow up [facility] Medicine [place] Comment on above: 4 mo follow up Start: 01-30-2024 End: 04-30-2024 25-hydroxyvitamin D3 [Mass/volume] in Serum or Plasma VITAMIN D 25 HYDROXY Lab Routine Vitamin D deficiency Encounter for long-term current use of medication Expected: 01/30/2024 (Approximate), Expires: 04/30/2024 [facility] Work Phone: Comment on above: Expected: 01/30/2024 (Approximate), Expires: 04/30/2024 Start: 01-30-2024 3 comp foot exam completed DIABETIC FOOT EXAM [facility] Start: 01-30-2024 ANNUAL PCP TEAM AIRPORT REPRESENTATIVE ALEXANDER DISEASE VISIT ANNUAL PCP TEAM CHRONIC DISEASE VISIT [facility] Start: 01-30-2024 End: 04-30-2024 CBC panel - Blood by Automated count CBC Lab Routine 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, with long-term current use of insulin (HCC) Essential hypertension Encounter for long-term current use of medication Expected: 01/30/2024 (Approximate), Expires: 04/30/2024 [facility] Work Phone: Comment on above: Expected: 01/30/2024 (Approximate), Expires: 04/30/2024 Start: 01-30-2024 End: 04-30-2024 Cobalamin (Vitamin B12) [Mass/volume] in Serum or Plasma VITAMIN B12 BLOOD Lab Routine Encounter for long-term current use of medication Expected: 01/30/2024 (Approximate), Expires: 04/30/2024 [facility] Work Phone: Comment on above: Expected: 01/30/2024 (Approximate), Expires: 04/30/2024 Start: 01-30-2024 End: 04-30-2024 Comprehensive metabolic 2000 panel - Serum or Plasma COMP METABOLIC PANEL Lab Routine Essential hypertension Encounter for long-term current use of medication Expected: 01/30/2024 (Approximate), Expires: 04/30/2024 [facility] Work Phone: Comment on above: Expected: 01/30/2024 (Approximate), Expires: 04/30/2024 Start: 01-30-2024 Diabetic foot examination Diabetic F oot Exam [facility] Start: 01-30-2024 End: 04-30-2024 Hemoglobin A1c in Blood HGB A1C Lab Routine 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, with long-term current use of insulin (HCC) Encounter for long-term current use of medication Expected: 01/30/2024 (Approximate), Expires: 04/30/2024 [facility] Work Phone: Comment on above: Expected: 01/30/2024 (Approximate), Expires: 04/30/2024 Start: 01-30-2024 End: 04-30-2024 Lipid 1996 panel - Serum or Plasma LIPID PANEL BASIC Lab Routine 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, with long-term current use of insulin (HCC) Encounter for long-term current use of medication Expected: 01/30/2024 (Approximate), Expires: 04/30/2024 [facility] Work Phone: Comment on above: Expected: 01/30/2024 (Approximate), Expires: 04/30/2024 Start: 01-30-2024 End: 04-30-2024 Pyridoxine [Mass/volume] in Serum or Plasma VITAMIN B6/PYRIDOXIN Lab Routine Vitamin B6 deficiency Encounter for long-term current use of medication Expected: 01/30/2024 (Approximate), Expires: 04/30/2024 [facility] Work Phone: Comment on above: Expected: 01/30/2024 (Approximate), Expires: 04/30/2024 Start: 01-27-2024 Hepatitis B surface antibody level LDL CHOLESTEROL [facility] Start: 12-27-2023 Hemoglobin A1c measurement HbA1C [facility] Start: 11-27-2023 Hepb vaccine adult 3 dose schedule for im use HEP B VACCINE, 3-DOSE, AGE 20+ YR (ENGERIX-B, RECOMBIVAX HB) Immunization/Injection Routine Encounter for immunization Expected: 11/27/2023 [facility] Work Phone: Comment on above: Expected: 11/27/2023 Start: 10-18-2023 BP CONTROLLED (<130/80) BP CONTROLLE D (<130/80) [facility] Start: 10-05-2023 Glaucoma screening Dilated Retinal E xam [facility] Start: 10-05-2023 Hepatitis C antibody , confirmatory test DILATED RETINAL EXAM [facility] Start: 10-01-2023 End: 12-31-2023 ALBUMIN/CREAT RATIO RND UR ALBUMIN/CREAT RATIO RND UR Lab Routine 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, 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, managed as type 1 (HCC) Expected: 10/01/2023, Expires: 12/31/2023 [facility] Work Phone: Comment on above: Expected: 10/01/2023 , Expires: 12/31/2023 Start: 09-30-2023 ANNUAL PCP TEAM AIRPORT REPRESENTATIVE ALEXANDER DISEASE VISIT ANNUAL PCP TEAM CHRONIC DISEASE VISIT [facility] Start: 09-28-2023 End: 12-28-2023 25-hydroxyvitamin D3 [Mass/volume] in Serum or Plasma [facility] [facility] Work Phone: Comment on above: Expected: 09/28/2023 , Expires: 12/28/2023 Start: 09-28-2023 End: 12-28-2023 Lipid 1996 panel - Serum or Plasma [facility] Work Phone: Comment on above: Expected: 09/28/2023 , Expires: 12/28/2023 Start: 08-13-2023 Advance Directive Discussion Advance Directive Discussion [facility] Start: 08-13-2023 Behavioral Health Screening Behavioral Health Screening [facility] Start: 08-13-2023 Depression Assessment Depression Ass essment [facility] Start: 08-02-2023 Hepatitis B screening URINE AL BUMIN:CREATININE RATIO [facility] Start: 08-02-2023 Hepatitis B surface antibody level LDL CHOLESTEROL [facility] Start: 07-28-2023 Hemoglobin A1c measurement HbA1C [facility] Start: 07-28-2023 Hemoglobin A1c/Hemoglobin.total in Blood HBA1C [facility] Start: 07-19-2023 Patient referral [facility] Work Phone: Start: 07-13-2023 End: 09-12-2023 25-hydroxyvitamin D3 [Mass/volume] in Serum or Plasma VITAMIN D 25 HYDROXY Lab Routine Vitamin D deficiency Expected: 07/13/2023, Expires: 09/12/2023 [facility] Work Phone: Comment on above: Expected: 07/13/2023 , Expires: 09/12/2023 Start: 07-13-2023 End: 09-12-2023 ALBUMIN/CREAT RATIO RND UR ALBUMIN/CREAT RATIO RND UR Lab Routine 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, with long-term current use of insulin (HCC) Expected: 07/13/2023, Expires: 09/12/2023 [facility] Work Phone: Comment on above: Expected: 07/13/2023 , Expires: 09/12/2023 Start: 07-13-2023 End: 09-12-2023 CBC panel - Blood by Automated count CBC Lab Routine Essential hypertension Expected: 07/13/2023, Expires: 09/12/2023 [facility] Work Phone: Comment on above: Expected: 07/13/2023 , Expires: 09/12/2023 Start: 07-13-2023 End: 09-12-2023 Comprehensive metabolic 2000 panel - Serum or Plasma COMP METABOLIC PANEL Lab Routine Essential hypertension 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, with long-term current use of insulin (HCC) Expected: 07/13/2023, Expires: 09/12/2023 [facility] Work Phone: Comment on above: Expected: 07/13/2023 , Expires: 09/12/2023 Start: 07-13-2023 End: 09-12-2023 Hemoglobin A1c in Blood HGB A1C Lab Routine 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, with long-term current use of insulin (HCC) Expected: 07/13/2023, Expires: 09/12/2023 [facility] Work Phone: Comment on above: Expected: 07/13/2023 , Expires: 09/12/2023 Start: 07-13-2023 End: 09-12-2023 Lipid 1996 panel - Serum or Plasma LIPID PANEL BASIC Lab Routine Hyperlipidemia, unspecified hyperlipidemia type Expected: 07/13/2023, Expires: 09/12/2023 [facility] Work Phone: Comment on above: Expected: 07/13/2023 , Expires: 09/12/2023 Start: 07-13-2023 End: 09-12-2023 Pyridoxine [Mass/volume] in Serum or Plasma VITAMIN B6/PYRIDOXIN Lab Routine Vitamin B6 deficiency Expected: 07/13/2023, Expires: 09/12/2023 [facility] Work Phone: Comment on above: Expected: 07/13/2023 , Expires: 09/12/2023 Start: 07-12-2023 Blood chemistry [facility] Start: 07-05-2023 Blood chemistry [facility] Start: 07-01-2023 Hepb vaccine adult 3 dose schedule for im use HEP B VACCINE, 3-DOSE, AGE 20+ YR (ENGERIX-B, RECOMBIVAX HB) Immunization/Injection Routine Encounter for immunization Expected: 07/01/2023 [facility] Work Phone: Comment on above: Expected: 07/01/2023 Start: 06-28-2023 Blood chemistry [facility] Start: 06-26-2023 Patient discharge [facility] Start: 06-25-2023 Development of care plan [facility] Start: 06-25-2023 [facility] Start: 06-22-2023 Referral to service [facility] Start: 06-21-2023 Blood chemistry [facility] Start: 06-14-2023 [facility] Start: 06-14-2023 Speech therapy assessment [facility] Start: 06-14-2023 Development of care plan [facility] Start: 06-14-2023 Developing a treatme nt plan [facility] Start: 06-14-2023 Application of device [facility] Start: 06-13-2023 Admission procedure [facility] Start: 06-13-2023 Measuring intake and output [facility] Start: 06-13-2023 Patient referral to dietitian [facility] Start: 06-13-2023 Referral to occupati onal therapist [facility] Start: 06-13-2023 Referral to service [facility] Start: 06-13-2023 Verification routine [facility] Start: 06-13-2023 Vital signs measurements [facility] Start: 06-13-2023 [facility] Start: 06-13-2023 Patient discharge [facility] Start: 06-11-2023 Blood chemistry [facility] Start: 06-10-2023 Following clinical pathway protocol [facility] Start: 06-10-2023 Assessment of risk o f venous thromboembolism [facility] Start: 06-10-2023 Cardiac monitoring [facility] Start: 06-10-2023 Care regimes management [facility] Start: 06-10-2023 Catheterization of vein [facility] Start: 06-10-2023 Continuous pulse oximetry [facility] Start: 06-10-2023 Inhalation therapy procedure [facility] Start: 06-10-2023 Insertion of cathete r into peripheral vein [facility] Start: 06-10-2023 Notification of physician [facility] Start: 06-10-2023 Oxygen therapy [facility] Start: 06-10-2023 Providing care accor ding to standard [facility] Start: 06-10-2023 Referral to occupati onal therapist [facility] Start: 06-10-2023 Referral to service [facility] Start: 06-10-2023 Verification routine [facility] Start: 06-10-2023 Admission procedure [facility] Start: 06-10-2023 Blood culture [facility] Start: 06-10-2023 End: 06-10-2023 [facility] Start: 06-10-2023 Bacteria identified in Blood by Culture Blood Culture [facility] Start: 06-10-2023 Bacteria identified in Urine by Culture Urine Culture [facility] Start: 06-10-2023 Patient referral to dietitian [facility] Start: 04-13-2023 Covid-19 Vaccine () Covid-19 Vaccine () [facility] Start: 04-13-2023 Influenza vaccination INFLUENZA (#1) [facility] Start: 03-31-2023 ANNUAL PCP TEAM AIRPORT REPRESENTATIVE ALEXANDER DISEASE VISIT ANNUAL PCP TEAM CHRONIC DISEASE VISIT [facility] Start: 03-31-2023 BP CONTROLLED (<130/80) BP CONTROLLE D (<130/80) [facility] Start: 03-31-2023 Urine microalbumin profile DTAP,TDAP,TD (2 - Td or Tdap) [facility] Comment on above: Postponed from 03/22 (Declined at this time) Start: 01-31-2023 Hemoglobin A1c/Hemoglobin.total in Blood HBA1C [facility] Start: 01-25-2023 End: 03-27-2023 25-hydroxyvitamin D3 [Mass/volume] in Serum or Plasma VITAMIN D 25 HYDROXY Lab Routine Vitamin D deficiency Expected: 01/25/2023, Expires: 03/27/2023 [facility] Work Phone: Comment on above: Expected: 01/25/2023 , Expires: 03/27/2023 Start: 01-25-2023 End: 03-27-2023 ALBUMIN/CREAT RATIO RND UR ALBUMIN/CREAT RATIO RND UR Lab Routine 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, with long-term current use of insulin (HCC) Expected: 01/25/2023, Expires: 03/27/2023 [facility] Work Phone: Comment on above: Expected: 01/25/2023 , Expires: 03/27/2023 Start: 01-25-2023 End: 03-27-2023 CBC W Auto Differential panel - Blood CBC + DIFF Lab Routine Vitamin D deficiency Expected: 01/25/2023, Expires: 03/27/2023 [facility] Work Phone: Comment on above: Expected: 01/25/2023 , Expires: 03/27/2023 Start: 01-25-2023 End: 03-27-2023 Comprehensive metabolic 2000 panel - Serum or Plasma COMP METABOLIC PANEL Lab Routine Diabetes mellitus due to underlying condition with diabetic neuropathy, with long-term current use of insulin ([facility]) Expected: 01/25/2023, Expires: 03/27/2023 [facility] Work Phone: Comment on above: Expected: 01/25/2023 , Expires: 03/27/2023 Start: 01-25-2023 End: 03-27-2023 Hemoglobin A1c in Blood HGB A1C Lab Routine Diabetes mellitus due to underlying condition with diabetic neuropathy, with long-term current use of insulin ([facility]) Expected: 01/25/2023, Expires: 03/27/2023 [facility] Work Phone: Comment on above: Expected: 01/25/2023 , Expires: 03/27/2023 Start: 01-25-2023 End: 03-27-2023 Lipid 1996 panel - Serum or Plasma LIPID PANEL BASIC Lab Routine Hyperlipidemia, unspecified hyperlipidemia type Expected: 01/25/2023, Expires: 03/27/2023 [facility] Work Phone: Comment on above: Expected: 01/25/2023 , Expires: 03/27/2023 Start: 01-25-2023 End: 03-27-2023 Pyridoxine [Mass/volume] in Serum or Plasma VITAMIN B6/PYRIDOXIN Lab Routine Vitamin D deficiency Expected: 01/25/2023, Expires: 03/27/2023 [facility] Work Phone: Comment on above: Expected: 01/25/2023 , Expires: 03/27/2023 Start: 12-27-2022 BP CONTROLLED (<130/80) BP CONTROLLE D (<130/80) [facility] Start: 11-22-2022 ANNUAL PCP TEAM AIRPORT REPRESENTATIVE ALEXANDER DISEASE VISIT ANNUAL PCP TEAM CHRONIC DISEASE VISIT [facility] Start: 11-22-2022 BP CONTROLLED (<130/80) BP CONTROLLE D (<130/80) [facility] Start: 10-06-2022 COVID-19 VACCINE (6 - Moderna series) COVID-19 VACCINE (6 - Moderna series) [facility] Start: 10-04-2022 Hepatitis C antibody , confirmatory test DILATED RETINAL EXAM [facility] Start: 09-27-2022 Hemoglobin A1c/Hemoglobin.total in Blood HBA1C [facility] Start: 08-13-2022 ADVANCE DIRECTIVE DISCUSSION ADVANCE DIRECTIVE DISCUSSION [facility] Start: 08-13-2022 DEPRESSION ASSESSMENT DEPRESSION ASS ESSMENT [facility] Start: 08-02-2022 End: 10-02-2022 25-hydroxyvitamin D3 [Mass/volume] in Serum or Plasma [facility] Work Phone: Comment on above: Expected: 08/02/2022 , Expires: 10/02/2022 Start: 08-02-2022 End: 10-02-2022 ALBUMIN/CREAT RATIO RND UR [facility] Work Phone: Comment on above: Expected: 08/02/2022 , Expires: 10/02/2022 Start: 08-02-2022 End: 10-02-2022 Hemoglobin A1c in Blood [facility] Work Phone: Comment on above: Expected: 08/02/2022 , Expires: 10/02/2022 Start: 08-02-2022 End: 10-02-2022 Lipid 1996 panel - Serum or Plasma [facility] Work Phone: Comment on above: Expected: 08/02/2022 , Expires: 10/02/2022 Start: 08-02-2022 End: 10-02-2022 Pyridoxine [Mass/volume] in Serum or Plasma [facility] Work Phone: Comment on above: Expected: 08/02/2022 , Expires: 10/02/2022 Start: 05-16-2022 End: 05-30-2022 Influenza virus A and B RNA and SARS-CoV-2 (COVID-19) N gene panel - Respiratory specimen by JOANNA with probe detection COVID WITH FLUA+B, ROUTINE Microbiology Routine Suspected COVID-19 virus infection Expected: 05/16/2022, Expires: 05/30/2022 [facility] Work Phone: Comment on above: Expected: 05/16/2022 , Expires: 05/30/2022 Start: 04-13-2022 Influenza vaccination INFLUENZA (#1) [facility] Start: 03-15-2022 COVID-19 VACCINE (5 - Booster for Moderna series) COVID-19 VACCINE (5 - Booster for Moderna series) [facility] Start: 03-01-2022 3 comp foot exam completed DIABETIC FOOT EXAM [facility] Start: 03-01-2022 Urine microalbumin profile DTAP,TDAP,TD (2 - Td or Tdap) [facility] Comment on above: Postponed from 03/22 (Declined at this time) Start: 01-16-2022 Hemoglobin A1c/Hemoglobin.total in Blood HBA1C [facility] Start: 11-29-2021 Adult depression screening assessment DEPRESSION SCREENING [facility] Start: 11-25-2021 Hepatitis B screening URINE AL BUMIN:CREATININE RATIO [facility] Start: 11-23-2021 Hepatitis B surface antibody level [facility] Start: 10-10-2021 COVID-19 VACCINE (4 - Booster for Moderna series) COVID-19 VACCINE (4 - Booster for Moderna series) [facility] Start: 08-13-2021 DEPRESSION ASSESSMENT DEPRESSION ASS ESSMENT [facility] Start: 04-25-2020 BP CONTROLLED (<130/80) BP CONTROLLE D (<130/80) [facility] Start: 2017 RSV Vaccine (1 - 1-d ose 75+ series) RSV Vaccine (1 - 1-dose 75+ series) [facility] Start: 03-22-2016 Urine microalbumin profile [facility] Start: 04-13-2007 Medicare Annual Well ness Visit Medicare Annual Wellness Visit [facility] Start: 2002 Hepatitis B Vaccine (1 of 3 - Risk 3-dose series) Hepatitis B Vaccine (1 of 3 - Risk 3-dose series) [facility] Start: 2002 RSV Vaccine (1 - 1-d ose 60+ series) RSV Vaccine (1 - 1-dose 60+ series) [facility] Start: 1960 Depression Screening Depression Scre ening [facility] Acetone [Presence] i n Serum or Plasma [facility] Anion gap measurement [facility] Anion gap measurement [facility] Anion gap measurement [facility] Anion gap measurement [facility] Anion gap measurement [facility] Bacteria identified in Urine by Culture URINE CULTURE Microbiology Routine Urinary frequency Ordered: 12/09/2023 [facility] Work Phone: Comment on above: Ordered: 12/09/2023 End: 11-22-2022 Basic metabolic 2000 panel - Serum or Plasma BASIC METABOLIC PNL Lab Routine Encounter for long-term current use of medication Once per month for 12 Occurrences starting 11/22/2021 until 11/22/2022 [facility] Work Phone: Comment on above: Once per month for 1 2 Occurrences starting 11/22/2021 until 11/22/2022 BUN/Creatinine ratio [facility] BUN/Creatinine ratio [facility] BUN/Creatinine ratio [facility] BUN/Creatinine ratio [facility] BUN/Creatinine ratio [facility] Calcium [Mass/volume ] in Serum or Plasma [facility] Calcium [Mass/volume ] in Serum or Plasma [facility] Calcium [Mass/volume ] in Serum or Plasma [facility] Calcium [Mass/volume ] in Serum or Plasma [facility] Calcium [Mass/volume ] in Serum or Plasma [facility] Carbon dioxide, tota l [Moles/volume] in Serum or Plasma [facility] Carbon dioxide, tota l [Moles/volume] in Serum or Plasma [facility] Carbon dioxide, tota l [Moles/volume] in Serum or Plasma [facility] Carbon dioxide, tota l [Moles/volume] in Serum or Plasma [facility] Carbon dioxide, tota l [Moles/volume] in Serum or Plasma [facility] Chloride [Moles/volu me] in Serum or Plasma [facility] Chloride [Moles/volu me] in Serum or Plasma [facility] Chloride [Moles/volu me] in Serum or Plasma [facility] Chloride [Moles/volu me] in Serum or Plasma [facility] Chloride [Moles/volu me] in Serum or Plasma [facility] Creatine kinase [Enzymatic activity/volume] in Serum or Plasma [facility] Creatinine [Moles/vo lume] in Serum or Plasma [facility] Creatinine [Moles/vo lume] in Serum or Plasma [facility] Creatinine [Moles/vo lume] in Serum or Plasma [facility] Creatinine [Moles/vo lume] in Serum or Plasma [facility] Creatinine [Moles/vo lume] in Serum or Plasma [facility] ECG COMPLETE ECG COMPLETE ECG 01/31/2024 11:04 AM EDT [facility] End: 06-04-2024 EGD DIAGNOSTIC EGD DIAGNOSTIC Endoscopy Routine 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 1 Occurrences starting 06/04/2023 until 06/04/2024 [facility] Work Phone: Comment on above: 1 Occurrences starti ng 06/04/2023 until 06/04/2024 Glucose [Mass/volume ] in Serum or Plasma [facility] Glucose [Mass/volume ] in Serum or Plasma [facility] Glucose [Mass/volume ] in Serum or Plasma [facility] Glucose [Mass/volume ] in Serum or Plasma [facility] Glucose [Mass/volume ] in Serum or Plasma [facility] Hematocrit [Volume Fraction] of Blood [facility] Hematocrit [Volume Fraction] of Blood [facility] Hematocrit [Volume Fraction] of Blood [facility] Hematocrit [Volume Fraction] of Blood [facility] Hematocrit [Volume Fraction] of Blood [facility] Hemoglobin [Mass/vol ume] in [facility] Hemoglobin [Mass/vol ume] in Blood [facility] Hemoglobin [Mass/vol ume] in Blood [facility] Hemoglobin [Mass/vol ume] in Blood [facility] Hemoglobin [Mass/vol ume] in Blood [facility] Hepb vaccine adult 3 dose schedule for im use HEP B VACCINE, 3-DOSE, AGE 20+ YR (ENGERIX-B, RECOMBIVAX HB) Immunization/Injection Routine Encounter for immunization 1 Occurrences starting 05/31/2023 [facility] Work Phone: Comment on above: 1 Occurrences starti ng 05/31/2023 Leukocytes [#/volume ] in Blood [facility] Leukocytes [#/volume ] in Blood [facility] Leukocytes [#/volume ] in Blood [facility] Leukocytes [#/volume ] in Blood [facility] Leukocytes [#/volume ] in Blood [facility] Mean corpuscular hemoglobin concentration determination [facility] Mean corpuscular hemoglobin concentration determination [facility] Mean corpuscular hemoglobin concentration determination [facility] Mean corpuscular hemoglobin concentration determination [facility] Mean corpuscular hemoglobin concentration determination [facility] Mean corpuscular hemoglobin determination [facility] Mean corpuscular hemoglobin determination [facility] Mean corpuscular hemoglobin determination [facility] Mean corpuscular hemoglobin determination [facility] Mean corpuscular hemoglobin determination [facility] Measurement of renal function [facility] Measurement of renal function [facility] Measurement of renal function [facility] Measurement of renal function [facility] Measurement of renal function [facility] MR Cervical spine [facility] Neutrophil count [facility] Neutrophil count [facility] Neutrophil count [facility] Neutrophil count [facility] Neutrophil count [facility] Neutrophil percent differential count [facility] Neutrophil percent differential count [facility] Neutrophil percent differential count [facility] Neutrophil percent differential count [facility] Neutrophil percent differential count [facility] Patient referral [facility] Work Phone: [email or web address] COVI D-19 VACCINE ( SEASON) AGE 12+ YR [employer] COVID-19 VACCINE ( SEASON) AGE 12+ YR Immunization/Injection Routine Encounter for immunization 1 Occurrences starting 05/31/2023 [facility] Work Phone: Comment on above: 1 Occurrences starti ng 05/31/2023 Platelets [#/volume] in Blood [facility] Platelets [#/volume] in Blood [facility] Platelets [#/volume] in Blood [facility] Platelets [#/volume] in Blood [facility] Platelets [#/volume] in Blood [facility] Potassium [Moles/vol ume] in Serum or Plasma [facility] Potassium [Moles/vol ume] in Serum or Plasma [facility] Potassium [Moles/vol ume] in Serum or Plasma [facility] Potassium [Moles/vol ume] in Serum or Plasma [facility] Potassium [Moles/vol ume] in Serum or Plasma [facility] Red blood cell count [facility] Red blood cell count [facility] Red blood cell count [facility] Red blood cell count [facility] Red blood cell count [facility] Red cell distributio n width determination [facility] Red cell distributio n width determination [facility] Red cell distributio n width determination [facility] Red cell distributio n width determination [facility] Red cell distributio n width determination [facility] Sodium [Moles/volume ] in Serum or Plasma [facility] Sodium [Moles/volume ] in Serum or Plasma [facility] Sodium [Moles/volume ] in Serum or Plasma [facility] Sodium [Moles/volume ] in Serum or Plasma [facility] Sodium [Moles/volume ] in Serum or Plasma [facility] End: 01-30-2025 STRESS ECHO TREADMILL STRESS ECHO TREADMILL Cardiology Routine Chest pain, unspecified type 1 Occurrences starting 01/31/2024 until 01/30/2025 [facility] Work Phone: Comment on above: 1 Occurrences starti ng 01/31/2024 until 01/30/2025 SURGICAL PATHOLOGY [facility] Work Phone: Comment on above: Release Upon Orderin g for 1 Occurrences starting 12/21/2021, 1 completed SURGICAL PATHOLOGY [facility] Work Phone: Comment on above: Release Upon Orderin g for 1 Occurrences starting 06/06/2023, 1 completed Urea nitrogen [Mass/volume] in Serum or Plasma [facility] Urea nitrogen [Mass/volume] in Serum or Plasma [facility] Urea nitrogen [Mass/volume] in Serum or Plasma [facility] Urea nitrogen [Mass/volume] in Serum or Plasma [facility] Urea nitrogen [Mass/volume] in Serum or Plasma [facility] End: 03-01-2025 US Carotid arteries - bilateral US CAROTID BILATERAL Radiology Routine Lightheadedness Syncope, unspecified syncope type 1 Occurrences starting 01/31/2024 until 03/01/2025 [facility] Comment on above: 1 Occurrences starti ng 01/31/2024 until 03/01/2025 End: 01-30-2025 US Carotid arteries - bilateral US CAROTID ARTERIES [facility] Routine Lightheadedness Syncope, unspecified syncope type 1 Occurrences starting 01/31/2024 until 01/30/2025 [facility] Comment on above: 1 Occurrences starti ng 01/31/2024 until 01/30/2025 [facility] Immunizations Immunization Date Immunization Notes Care Provider [facility] 06-10-2024 influenza, high dose seasonal, preservative-free Ellen Gonzalez RN Work Phone: [facility] 06-10-2024 influenza virus vacc ine, unspecified formulation Selam Shepard MA [facility] 05-29-2024 tetanus immune globulin Venus Gonzalez RN Work Phone: [facility] 05-31-2023 influenza (HD-IIV4) vaccine, age 65+ yr, high dose, quadrivalent, PF (FLUZONE HIGH-DOSE) Clarence Berry [employer].INSPECTOR OPEN DIE Work Phone: [facility] Work Phone: 05-31-2023 influenza virus vacc ine, unspecified formulation Martin Munguia COLLEGE ATHLETE.INTERMEDIATE DESIGNER Work Phone: [facility] 06-05-2022 Kurt Nguyễn Bivale nt Booster Dr. Alicia Blount Work Phone: [facility] 05-02-2022 influenza, high-dose , quadrivalent vaccine (FLUZONE HIGH DOSE QUADRIVALENT) Clarence Berry COLLEGE ATHLETE.INSPECTOR OPEN DIE Work Phone: [facility] 01-18-2022 Covtrisha (Moderna) Dr. Alicia rothman Work Phone: [facility] 11-05-2021 zoster vaccine recombinant Alicia Blount MD Work Phone: [facility] 06-09-2021 COVID-19 vaccine, fu ll dose (MODERNA) Alicia Blount MD Work Phone: [facility] 05-25-2021 influenza, high dose seasonal, preservative-free Alicia Blount MD Work Phone: [facility] 03-10-2021 zoster vaccine recombinant Alicia Blount MD Work Phone: [facility] 10-20-2020 COVID-19 vaccine, fu ll dose (MODERNA) Alicia Blount MD Work Phone: [facility] 09-23-2020 COVID-19 vaccine, fu ll dose (MODERNA) Alicia Blount MD Work Phone: [facility] 07-26-2020 pneumococcal polysaccharide vaccine, 23 valent Alicia Blount MD Work Phone: [facility] 04-15-2020 influenza, injectabl e, quadrivalent, preservative free Dr. Alicia Blount Work Phone: [facility] 04-15-2020 influenza, seasonal, injectable Alicia Blount MD Work Phone: [facility] 04-25-2019 influenza, high dose seasonal, preservative-free Alicia Blount MD Work Phone: [facility] Work Phone: 04-20-2018 influenza, high dose seasonal, preservative-free Alicia Blount MD Work Phone: [facility] 05-17-2017 influenza, high dose seasonal, preservative-free Alicia Blount MD Work Phone: [facility] Work Phone: 05-11-2016 influenza, high dose seasonal, preservative-free Alicia Blount MD Work Phone: [facility] 05-12-2015 influenza, high dose seasonal, preservative-free Alicia Blount MD Work Phone: [facility] 09-07-2014 pneumococcal conjuga te vaccine, 13 valent Alicia Blount MD Work Phone: [facility] 05-13-2014 influenza, injectabl e, quadrivalent, preservative free Dr. Alicia Blount Work Phone: [facility] 05-13-2014 influenza, seasonal, injectable Alicia Blount MD Work Phone: [facility] 05-17-2013 influenza virus vacc ine, unspecified formulation Alicia Blount MD Work Phone: [facility] Work Phone: 05-18-2012 influenza virus vacc ine, unspecified formulation Alicia Blount MD Work Phone: [facility] Work Phone: 06-03-2011 influenza virus vacc yana, unspecified formulation Alicia Blount MD Work Phone: [facility] Work Phone: 05-03-2010 influenza virus vacc ine, unspecified formulation Alicia Blount MD Work Phone: [facility] Work Phone: 05-20-2009 influenza virus vacc ine, unspecified formulation Alicia Blount MD Work Phone: [facility] Work Phone: 05-13-2009 influenza virus vacc yana, unspecified formulation Alicia Blount MD Work Phone: [facility] Work Phone: 06-08-2008 influenza virus vacc ine, unspecified formulation Alicia Blount MD Work Phone: [facility] 01-08-2008 zoster vaccine, live Alicia munoz MD Work Phone: [facility] Work Phone: 09-05-2007 pneumococcal polysaccharide vaccine, 23 valent Alicia Blount MD Work Phone: [facility] Work Phone: 06-06-2007 influenza virus vacc ine, unspecified formulation Alicia Blount MD Work Phone: [facility] Work Phone: 06-19-2006 influenza virus vacc ine, unspecified formulation Alicia Blount MD Work Phone: [facility] Work Phone: 03-22-2006 tetanus toxoid, redu chuck diphtheria toxoid, and acellular pertussis vaccine, adsorbed Alicia Blount MD Work Phone: [facility] 06-08-2005 influenza virus vacc ine, unspecified formulation Alicia Blount MD Work Phone: [facility] Work Phone: Payers Date Payer Category Payer Self-pay [id number] 2015 Private Health Insurance HUMANA HUMANA MEDICARE SUPPLEMENT [id number] 2015-Present [phone] [address] [address] [place] [address] Indemnity [id number] .[id number] 2015 Private Health Insurance [id number] .[id number] .[id number] 2015 Private Health Insurance [id number] 2007 Medicare MEDICARE MEDICAR E A AND B [id number] 2007-Present [phone] [address] [address] [place] [address] Medicare [id number] .2.7.3.312168.315 2007 Medicare [id number]. 1.13.159 .2.7.3.206125.315 2007 Medicare [id number] Unknown [id number] 2.16.840.1.448914.3.579 .2.462 Unknown [id number] 2.16.840.1.574789.3.579 .2.462 Unknown [id number] 2.16.840.1.910305.3.579 .2.462 Unknown [id number] 2.16.840.1.642359.3.579 .2.462 Unknown [id number] 2.16.840.1.161737.3.579 .2.462 Unknown [id number] 2.16.840.1.077278.3.579 .2.462 Unknown [id number] 2.16.840.1.871752.3.579 .2.462 Unknown [id number] 2.16.840.1.133989.3.579 .2.462 Unknown [id number] 2.16.840.1.235595.3.579 .2.462 Unknown [id number] 2.16.840.1.384641.3.579 .2.462 Unknown [id number] 2.16.840.1.042397.3.579 .2.462 Unknown [id number] 2.16.840.1.793053.3.579 .2.462 Unknown [id number] 2.16.840.1.596093.3.579 .2.462 Unknown [id number] 2.16.840.1.402120.3.579 .2.462 Unknown [id number] 2.16.840.1.344611.3.579 .2.462 Unknown [id number] 2.16.840.1.098827.3.579 .2.462 Unknown [id number] 2.16.840.1.560191.3.579 .2.462 Unknown [id number] 2.16.840.1.371206.3.579 .2.462 Unknown [id number] 2.16.840.1.268009.3.579 .2.462 Unknown [id number] 2.16.840.1.556245.3.579 .2.462 Unknown [id number] 2.16.840.1.765924.3.579 .2.462 Unknown [id number] 2.16.840.1.969553.3.579 .2.462 Unknown [id number] 2.16.840.1.617355.3.579 .2.462 Unknown [id number] 2.840.1.588418.3.579 .2.462 Unknown [id number] 2.840.1.897996.3.579 .2.462 Unknown [id number] 2.840.1.886956.3.579 .2.462 Unknown [id number] 2.840.1.514137.3.579 .2.462 Unknown [id number] 2.840.1.600738.3.579 .2.462 Unknown [id number] 2.840.1.323792.3.579 .2.462 Unknown [id number] 2.840.1.482681.3.579 .2.462 Unknown [id number] 2.840.1.715358.3.579 .2.462 Unknown [id number] 2.840.1.519397.3.579 .2.462 Unknown [id number] 2.840.1.944021.3.579 .2.462 Unknown [id number] 2.840.1.883251.3.579 .2.462 Unknown [id number] 2.840.1.853714.3.579 .2.462 Unknown [id number] 2.16840.1.862422.3.579 .2.462 Unknown [id number] 2.16.840.1.445874.3.579 .2.462 Unknown [id number] 2.16.840.1.462668.3.579 .2.462 Unknown [id number] 2.16.840.1.538293.3.579 .2.462 Unknown [id number] 2.16.840.1.073677.3.579 .2.462 Unknown [id number] 2.16.840.1.303437.3.579 .2.462 Unknown [id number] 2.16.840.1.020694.3.579 .2.462 Unknown [id number] 2.16.840.1.752799.3.579 .2.462 Unknown [id number] 2.16840.1.791692.3.579 .2.462 Unknown [id number] 2.840.1.389591.3.579 .2.462 Unknown [id number] 2.16840.1.343143.3.579 .2.462 Unknown [id number] 2.16840.1.213164.3.579 .2.462 Unknown [id number] 2.16840.1.215761.3.579 .2.462 Unknown [id number] 2.16.840.1.396472.3.579 .2.462 Unknown [id number] 2.16840.1.906055.3.579 .2.462 Unknown [id number] 2.16840.1.035684.3.579 .2.462 Unknown [id number] 2.16.840.1.096810.3.579 .2.462 Unknown [id number] 2.16.840.1.170338.3.579 .2.462 Unknown [id number] 2.16.840.1.169745.3.579 .2.462 Unknown [id number] 2.16840.1.707988.3.579 .2.462 Unknown [id number] 2.16.840.1.016588.3.579 .2.462 Unknown [id number] 2.16.840.1.767136.3.579 .2.462 Unknown [id number] 2.16.840.1.498536.3.579 .2.462 Unknown [id number] 2.16840.1.577508.3.579 .2.462 Unknown [id number] 2.16.840.1.753276.3.579 .2.462 Unknown [id number] 2.840.1.759451.3.579 .2.462 Unknown [id number] 2.840.1.579181.3.579 .2.462 Unknown [id number] 2.840.1.036405.3.579 .2.462 Unknown [id number] 2.840.1.606367.3.579 .2.462 Unknown [id number] 2.840.1.258830.3.579 .2.462 Unknown [id number] 2.840.1.727434.3.579 .2.462 Unknown [id number] 2.840.1.106170.3.579 .2.462 Unknown [id number] 2.840.1.437110.3.579 .2.462 Unknown [id number] 2.840.1.160744.3.579 .2.462 Unknown [id number] 2.16840.1.531435.3.579 .2.462 Unknown [id number] 2.16840.1.332579.3.579 .2.462 Unknown [id number] 2.16840.1.495930.3.579 .2.462 Unknown [id number] 2.16840.1.594522.3.579 .2.462 Unknown [id number] 2.16840.1.009737.3.579 .2.462 Unknown [id number] 2.16.840.1.164902.3.579 .2.462 Unknown [id number] 2.16.840.1.373875.3.579 .2.462 Unknown [id number] 2.16.840.1.094610.3.579 .2.462 Unknown [id number] 2.16.840.1.542095.3.579 .2.462 Unknown [id number] 2.16.840.1.514293.3.579 .2.462 Unknown [id number] 2.16840.1.845389.3.579 .2.462 Unknown [id number] 2.16.840.1.653296.3.579 .2.462 Unknown [id number] 2.16840.1.067787.3.579 .2.462 Unknown [id number] 2.16840.1.926535.3.579 .2.462 Social History Date Type Detail Facility Start: 02-10-2011 End: 05-02-2022 Tobacco smoking status NHIS Never smoked tobacco [facility] Start: 09-19-2021 End: 07-15-2024 Alcohol intake Current drinker of alcohol (finding) [facility] Start: 10-07-2014 History SDOH Alcohol Comment 2-3 drinks/years [facility] Start: 1940 Sex Assigned At Not on file [facility] Start: 05-04-2021 End: 05-16-2022 Exposure to SARS-CoV-2 (event) Not sure [facility] Start: 02-10-2011 End: 05-02-2022 Tobacco use and exposure Smokeless tobacco non-user [facility] Start: 07-26-2022 End: 07-31-2023 Tobacco smoking status NHIS Unknown if ever smoked [facility] Start: 03-13-2017 Spouse/ Signif icant Other [facility] Start: 1940 Sex Assigned At Female [facility] Start: 01-29-2023 End: 12-03-2024 History of Social function [facility] Work Phone: Start: 01-29-2023 End: 07-15-2024 Tobacco use panel [facility] Work Phone: Start: 07-14-2012 Adult Depression Screening Assessment 0 [facility] Work Phone: Medical Equipment Procedure Code Equipment Code Equipment Origin al Text Equipment Identifier Dates [id number], [id number], [id number], [id number], [id number], [id number], [id number] Start: 07-15-2014 End: 08-14-2023 Comment on above: [...] Assessment Result Facility 06-26-2023 Functional status Bedrest [facility] Work Phone: 06-19-2023 Functional status Chair [facility] Work Phone: 06-18-2023 Functional status Standard Walker [facility] Work Phone: 06-17-2023 Functional status Bedrest [facility] Work Phone: 06-13-2023 Functional status Chair;Bathroom [employer] [facility] Work Phone: 03-18-2015 Are you deaf, or do you have serious difficulty hearing No 03/18/2015 11:55 AM Harlan Merritt LPN No [facility] 03-18-2015 Are you blind, or do you have serious difficulty seeing, even when wearing glasses No 03/18/2015 11:55 AM Harlan Merritt LPN No [facility] 03-18-2015 Do you have serious difficulty walking or climbing stairs No 03/18/2015 11:55 AM MARISELAT Harlan Zarate LPN No [facility] 03-18-2015 Do you have difficul ty dressing or bathing No 03/18/2015 11:55 AM Harlan Merritt LPN No [facility] 03-18-2015 Because of a physica l, mental, or emotional condition, do you have difficulty doing errands alone such as visiting a physician's office or shopping No 03/18/2015 11:55 AM MARISELAT Harlan Zarate LPN No [facility] Mental Status Date Assessment Result Facility 06-26-2023 Cognitive function Voice/Name;Touch/Shaki ng [facility] Work Phone: 06-22-2023 Cognitive function Appropriate;Cooperativ e [facility] Work Phone: 06-18-2023 Cognitive function Voice/Name [facility] Work Phone: 06-17-2023 Cognitive function Voice/Name [facility] Work Phone: 06-13-2023 Cognitive function Voice/Name [facility] Work Phone: 06-10-2023 Cognitive function Level Of Cons ciousness Awake;Alert;Appropriate;Fol lows Commands [facility] Work Phone: 03-18-2015 Because of a physica l, mental, or emotional condition, do you have serious difficulty concentrating, remembering, or making decisions No 03/18/2015 11:55 AM EDT Harlan Zarate LPN No [facility] Clinical Notes 11-14-2014 to 04-09-2025 Selam Shepard MA - 03/26/2025 9:44 AM Selam Lou MA - 02/23/2025 8:26 AM Selam Lou MA - 01/22/2025 10:22 AM Selam Lou MA - 12/23/2024 8:37 AM EDTPatient Instructions Note Date & Type Note Facility 04-09-2025 Note [facility] 03-26-2025 Note HNO ID: [id number] Author: SELAM SHEPARD MA Service: ? Author Type: Shellfish Bed Worker Type: Progress Notes Filed: 03/26/2025 09:47 Note [...] Shepard MA March 26, 2025 9:44 AM [facility] 03-26-2025 History of Presen t illness [...] 2025 9:44 AM documented in this encounter [facility] 03-26-2025 Note Patient Outreach (NE TNAV) ANA IVORY ([id number]) 1940 F Date Time Provider Department 03/26/25 SELAM SHEPARD NETNAV During your visit today, [...] 12/29/2020 14 - Other: See Comments NEOSPORIN ([id number]*08/31/19 09 2 - Rash Comments: blisters PIOGLITAZONE 12/29/2020 16 - Unknown PROTONIX (PANTOPRAZOLE) 01/13/2010 6 - Diarrhea RELAFEN (NABUMETONE) 03/22/2006 8 - GI Upset 11 - Vomiting SHRIMP 12/21/2021 8 - GI Upset ACTOS (PIOGLITAZONE HCL) 12/03/2016 7 - Swelling Date Reviewed: 07/15/2024 Reviewed by: Edwige Reyes LPN - Fully Assessed Reason for Visit: Population Health Navigation Outreach [3910] Cmt: Jovana/Iman/ACO Prescriptions as of 03/26/2025 - SEMGLEE,INSULIN GLARG-YFGN,PEN [...] Munguia refjere) Also has SSI. - Insulin [place], Disposable, (BD ULTRA-FINE FOZIA PEN NEEDLE) 32 [...] daily. For 30 days - multivitamin-folic acid-biotin (FIRJ-ZXKA-JYKCZ, XF-PU-BJYDZE,) 400-2,000 mcg tab Take by mouth. - collagen, bovine, 100 % powd Apply t (more content not included)... [facility] 02-23-2025 Note HNO ID: [id number] Author: SELAM SHEPARD MA Service: ? Author Type: Shellfish Bed Worker Type: Progress Notes Filed: 02/23/2025 08:26 Note [...] Shepard MA February 23, 2025 8:26 AM [facility] 02-23-2025 History of Presen t illness [...] 2025 8:26 AM documented in this encounter [facility] 02-23-2025 Note Patient Outreach (NE TNAV) ANA IVORY ([id number]) 1940 F Date Time Provider Department 02/23/25 SELAM SHEPARD During your visit today, we [...] 12/29/2020 14 - Other: See Comments NEOSPORIN ([id number]*08/31/19 09 2 - Rash Comments: blisters PIOGLITAZONE 12/29/2020 16 - Unknown PROTONIX (PANTOPRAZOLE) 01/13/2010 6 - Diarrhea RELAFEN (NABUMETONE) 03/22/2006 8 - GI Upset 11 - Vomiting SHRIMP 12/21/2021 8 - GI Upset ACTOS (PIOGLITAZONE HCL) 12/03/2016 7 - Swelling Date Reviewed: 07/15/2024 Reviewed by: Edwige Reyes LPN - Fully Assessed Reason for Visit: Population Health Navigation Outreach [3910] Cmt: [place]/Workbench/ACO Prescriptions as of 02/23/2025 - SEMGLEE,INSULIN GLARG-YFGN,PEN [...] Munguia refjere) Also has SSI. - Insulin [place], Disposable, (BD ULTRA-FINE FOZIA PEN NEEDLE) 32 [...] daily. For 30 days - multivitamin-folic acid-biotin (UWCQ-BYKL-BJRSI, BM-QE-HCIDQW,) 400-2,000 mcg tab Take by mouth. - collagen, bovine, 100 % powd Apply to affected area. - Cranberry-V (more content not included)... [facility] 01-22-2025 Note HNO ID: [id number] Author: SELAM SHEPARD MA Service: ? Author Type: Shellfish Bed Worker Type: Progress Notes Filed: 01/22/2025 10:23 Note [...] Shepard MA January 22, 2025 10:22 AM [facility] 01-22-2025 History of Presen t illness [...] 2025 10:22 AM documented in this encounter [facility] 01-22-2025 Note Patient Outreach (TONY TRUONG) ANA IVORY ([id number]) 1940 F Date Time Provider Department 01/22/25 SELAM SHEPARDV During your visit today, we recorded the [...] 12/29/2020 14 - Other: See Comments NEOSPORIN ([id number]*08/31/19 09 2 - Rash Comments: blisters PIOGLITAZONE [...] Munguia refjere) Also has SSI. - Insulin [place], Disposable, (BD ULTRA-FINE FOZIA PEN NEEDLE) 32 [...] daily. For 30 days - multivitamin-folic acid-biotin (SAZM-PVKT-MRNQX, NV-GB-LSOVRV,) 400-2,000 mcg tab Take by mouth. - collagen, bovine, 100 % powd Jonel (more content not included)... [facility] 12-23-2024 Note HNO ID: [id number] Author: SELAM SHEPARD MA Service: ? Author Type: Shellfish Bed Worker Type: Progress Notes Filed: 12/23/2024 08:38 Note [...] Shepard MA December 23, 2024 8:37 AM [facility] 12-23-2024 History of Presen t illness [...] or unnecessary to reach patient: Left message [employer] message sent HCC related Navigation Signature: Selam Shepard MA December 23, 2024 8:09 AM documented in this encounter [facility] 12-23-2024 Note HNO ID: [id number] Author: SELAM SHEPARD MA Service: ? Author Type: Shellfish Bed Worker Type: Progress Notes Filed: 12/23/2024 08:10 Note [...] or unnecessary to reach patient: Left message [employer] message sent HCC related Navigation Signature: Selam Shepard MA December 23, 2024 8:09 AM [facility] 12-23-2024 Note Patient Outreach (TONY TRUONG) ANA IVORY ([id number]) 1940 F Date Time Provider Department 12/23/24 SELAM SHEPARD During your visit today, we [...] 12/29/2020 14 - Other: See Comments NEOSPORIN ([id number]*08/31/19 09 2 - Rash Comments: blisters PIOGLITAZONE 12/29/2020 16 - Unknown PROTONIX (PANTOPRAZOLE) 01/13/2010 6 - Diarrhea RELAFEN (NABUMETONE) 03/22/2006 8 - GI Upset 11 - Vomiting SHRIMP 12/21/2021 8 - GI Upset ACTOS (PIOGLITAZONE HCL) 12/03/2016 7 - Swelling Date Reviewed: 07/15/2024 Reviewed by: Edwige Reyes LPN - Fully Assessed Reason for Visit: Population Health Navigation Outreach [3910] Cmt: Jovana/Iman/ACO Prescriptions as of 12/23/2024 - SEMGLEE,INSULIN GLARG-YFGN,PEN [...] Munguia refills) Also has SSI. - Insulin [place], Disposable, (BD ULTRA-FINE FOZIA PEN NEEDLE) 32 gauge x 5/32 Use one needle for each dose, 4 times daily. 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 - Pyridoxine HCl 250 mg tablet DAILY - DULoxetine (CYMBALTA) 60 mg capsule Take 1 capsule by mouth daily at bedtime. - flash glucose scanning reader (FREESTYLE DONTRELL (more content not included)... [facility] 12-19-2024 Telephone encounter Note Noted. Alicia Blount MD [facility] 12-19-2024 Miscellaneous Notes Noted. Alicia Blount MD Shani from [facility] calling with plan of care starting next week, OT 2 visits weekly for 3 weeks, working on balance and ADL's and meal prep. Do not need a call back. documented in this encounter [facility] 12-18-2024 Telephone encounter Note Shani from [facility] calling with plan of care starting next week, OT 2 visits weekly for 3 weeks, working on balance and ADL's and meal prep. Do not need a call back. [facility] 12-17-2024 Telephone encounter Note Home care Certification Form 485 received from [facility]. For cert dates 10/20/24-12/18/24 that were signed on 10/30/24. New Certification Patient's home health 485 form / care plan for stated certification period reviewed and signed. Relevant medical records were reviewed. No changes were indicated [facility] 12-17-2024 Miscellaneous Notes Home care Certification Form 485 received from [facility]. For cert dates 10/20/24-12/18/24 that were signed on 10/30/24. New Certification Patient's home health 485 form / care plan for stated certification period reviewed and signed. Relevant medical records were reviewed. No changes were indicated documented in this encounter [facility] 12-15-2024 Telephone encounter Note Noted and agree. [facility] Work Phone: 12-15-2024 Miscellaneous Notes Noted and agree. Shani from [facility] calling with OT plan of care, one visit this week. She will call back with new plan next week. No need for return call. documented in this encounter [facility] 12-15-2024 Telephone encounter Note Shani from [facility] calling with OT plan of care, one visit this week. She will call back with new plan next week. No need for return call. [facility] 12-10-2024 Telephone encounter Note Noted, agree. [facility] Work Phone: 12-10-2024 Miscellaneous Notes Noted, agree. Shani - OT- reports she was suppose to see pt today but pt cancelled due to a hair appt. Shani will see patient next week instead. Shani states she will go ahead and put the order in, and doesn't need a call back unless pcp disagrees. documented in this encounter [facility] 12-10-2024 Telephone encounter Note Shani - OT- reports she was suppose to see pt today but pt cancelled due to a hair appt. Shani will see patient next week instead. Shani states she will go ahead and put the order in, and doesn't need a call back unless pcp disagrees. [facility] 11-20-2024 Telephone encounter Note Noted, [place] [facility] 11-20-2024 Miscellaneous Notes Noted, [place] Shani OT calling from [facility] to report plan of care for [...] Coby Reynolds RN documented in this encounter [facility] 11-20-2024 Note HNO ID: [id number] Author: SELAM SHEPARD MA Service: ? Author Type: Shellfish Bed Worker Type: Progress Notes Filed: 11/20/2024 08:58 Note [...] Shepard MA November 20, 2024 8:57 AM [facility] 11-20-2024 History of Presen t illness [...] 2024 8:57 AM documented in this encounter [facility] 11-20-2024 Note Patient Outreach (NE TNAV) ANA IVORY ([id number]) 1940 F Date Time Provider Department 11/20/24 [...] 12/29/2020 14 - Other: See Comments NEOSPORIN ([id number]*08/31/19 09 2 - Rash Comments: blisters PIOGLITAZONE 12/29/2020 16 - Unknown PROTONIX (PANTOPRAZOLE) 01/13/2010 6 - Diarrhea RELAFEN (NABUMETONE) 03/22/2006 8 - GI Upset 11 - Vomiting SHRIMP 12/21/2021 8 - GI Upset ACTOS (PIOGLITAZONE HCL) 12/03/2016 7 - Swelling Date Reviewed: 07/15/2024 Reviewed by: Edwige Reyes LPN - Fully Assessed Reason for Visit: Population Health Navigation Outreach [3910] Cmt: Jovana/Workbesumeeth/ACO Prescriptions as of 11/20/2024 - SEMGLEE,INSULIN GLARG-YFGN,PEN [...] Munguia refills) Also has SSI. - Insulin [place], Disposable, (BD ULTRA-FINE FOZIA PEN NEEDLE) 32 [...] daily. For 30 days - multivitamin-folic acid-biotin (EMRA-MJID-OEJCO, PA-ZB-VSZYXB,) 400-2,000 mcg tab Take by mouth. - collagen, bovine, 100 % powd Apply to affe (more content not included)... [facility] 11-19-2024 Telephone encounter Note Shani STEWART calling from [facility] to report plan of care for [...] back needed unless questions Coby Reynolds RN [facility] 10-29-2024 Telephone encounter Note Detailed message left for nurse Choi of below instructions. [facility] 10-29-2024 Miscellaneous Notes Detailed message left for [...] UTI if develops concerning symptoms. Steph from 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 Daughter said she had not given her mother the macrobid rx for 4 days, she did not know she was to continue taking the medication. Nurse had called Dr nonprofit financial controller Sunday and was told patient to continue taking the macrobid rx. Daughter said she was not given the urine culture results from the hospital. Aware patient needs to schedule hospital follow up appt. Nurse was asking about if patient needs to have another urine test done? Please advise documented in this encounter [facility] 10-28-2024 Telephone encounter Note Looks like Dr. Forbes sent the RX for macrobid because patient complained of dysuria. It was added to the discharge summary (addendum) so was not part of the main part of the discharge summary. If she does not have any symptoms, can hold of on th antibiotic. Can check urine for UTI if develops concerning symptoms. [facility] 10-27-2024 Telephone encounter Note The 98 pills should have said 8. I must have hit the 9 by accident as noted in the actual question: Karina asking if provider wants patient to take the baby aspirin and continue the 8 remaining doses of Macrobid? Message left for Karina with [facility] to notify that patient should be taking Baby Aspirin daily and finishing ATB. I am closing this encounter as now there are several others regarding same issue. Anne Rivera RN [facility] 10-27-2024 Miscellaneous Notes The 98 pills should have said 8. I must have hit the 9 by accident as noted in the actual question: Karina asking if provider wants patient to take the baby aspirin and continue the 8 remaining doses of Macrobid? Message left for Karina with [facility] to notify that patient should be [...] only prescribed 14 pills Karina nurse with [facility] calls to let provider know [...] of Macrobid? Karina requests call back at [phone]. Please review and advise, Anne Rivera RN documented in this encounter [facility] 10-27-2024 Telephone encounter Note [facility]- phoned with OT update POC: will see pt 2 x's week for 4 weeks for ADLs and IADLs and also reporting delay of care eval due to full schedule. No call back needed. [facility] 10-27-2024 Miscellaneous Notes [facility]- phoned with OT update POC: will see pt 2 x's week for 4 weeks for ADLs and IADLs and also reporting delay of care eval due to full schedule. No call back needed. documented in this encounter [facility] 10-27-2024 Telephone encounter Note Steph from [facility] calling she was the supervisor contact lens nurse this weekend and was called by the patient daughter Sunday. Daughter said she had not given her mother the macrobid rx for 4 days, she did not know she was to continue taking the medication. Nurse had called Dr nonprofit financial controller Sunday and was told patient to continue taking the macrobid rx. Daughter said she was not given the urine culture results from the hospital. Aware patient needs to schedule hospital follow up appt. Nurse was asking about if patient needs to have another urine test done? Please advise [facility] 10-25-2024 Telephone encounter Note Received call from [facility] nurse regarding patient. Pt was [...] home health visit. Dr. Ligia Schilling DO [facility] Work Phone: 10-25-2024 Miscellaneous Notes Received call from [facility] nurse regarding patient. Pt was [...] Ligia Schilling DO documented in this encounter [facility] 10-25-2024 Telephone encounter Note Steph RN with [facility] for patient, calling requesting urine lab order; [...] have any questions, you can call Nurse nonprofit financial controller back. Gabrielle Murdock RN [facility] 10-25-2024 Miscellaneous Notes Steph BRYANT with [facility] for patient, calling requesting urine lab order; [...] have any questions, you can call Nurse nonprofit financial controller back. Gabrielle Gall, RN documented in this encounter [facility] 10-25-2024 Telephone encounter Note Baby aspirin is [...] -- Dr. Forbes only prescribed 14 pills [facility] 10-24-2024 Telephone encounter Note Karina nurse with [facility] calls to let provider know [...] of Macrobid? Karina requests call back at [phone]. Please review and advise, Anne Rivera RN [facility] 10-24-2024 Telephone encounter Note Noted. [facility] Work Phone: 10-24-2024 Miscellaneous Notes Noted. Rhina from [facility] Home [facility] calling she has completed patient ST eval and plan to work on swallowing therapy, 2 visits weekly for 2 weeks. No need to return call. documented in this encounter [facility] 10-23-2024 Telephone encounter Note Rhina from [facility] calling she has completed patient ST eval and plan to work on swallowing therapy, 2 visits weekly for 2 weeks. No need to return call. [facility] 10-21-2024 Telephone encounter Note Below response left on identified vm. Juana Muro LPN [facility] 10-21-2024 Miscellaneous Notes Below response left on [...] Dr. Genny Munguia (endo) Updated med list Hardik BRYANT CM [facility] POC on Pt and reports they [...] Asprin 81 mg. documented in this encounter [facility] 10-21-2024 Telephone encounter Note Patient has intolerance [...] Noted insulin changes per Dr. Genny Munguia ([facility]) Updated med list [facility] 10-20-2024 Telephone encounter Note Hardik [facility]ANT [facility] POC on Pt and reports they will [...] shouldn't be taking the Asprin 81 mg. [facility] 10-17-2024 Telephone encounter Note Called and left a detailed voicemail notifying [facility] of providers message. Clinic phone number was left in case they had any questions. Judith Renteria RN [facility] 10-17-2024 Miscellaneous Notes Called and left a detailed voicemail notifying [facility] of providers message. Clinic phone number was left in case they had any questions. Judith Renteria RN Please call and let them know that yes, we will follow. Thanks. Isabella Emerson APRN.NEMESIO [facility] called in and reports Pt was D/Chuck from TCU today for a stroke on 08/30. Pt was discharged with PT/OT/SN/SW/ST. She was asking if provider would be willing to follow. Please call and advise. documented in this encounter [facility] 10-17-2024 Telephone encounter Note Please call and let them know that yes, we will follow. Thanks. Isabella Emerson APRN.CNP [facility] Work Phone: 10-17-2024 Telephone encounter Note [facility] called in and reports Pt was D/Chuck from TCU today for a stroke on 08/30. Pt was discharged with PT/OT/SN/SW/ST. She was asking if provider would be willing to follow. Please call and advise. [facility] 10-10-2024 Note [facility] 09-21-2024 Note [facility] 09-19-2024 Note [facility] 08-29-2024 Note [facility] 08-29-2024 Note [facility] 08-25-2024 Note [facility] 08-07-2024 Note [facility] 08-06-2024 Note [facility] 08-01-2024 Note HNO ID: [id number] Author: ELLEN GONZALEZ RN Service: ? Author Type: Registered Nurse Type: Progress Notes Filed: 08/01/2024 10:47 Note Text: Transitional Care Management (TCM) Follow-Up Note PCP Update / Actionable Items N/A - No specialty updates needed Patient Source: Usk-xk-Tijzstz (OON) Discharge Outreach Summary: Pt reports she is currently experiencing cold symptoms, congestion, fatigue. Denies any fever, chills, vomiting. Blood sugar continues to be up and down over the last week in the 200's, using SSI . Pt. encouraged to call PCP with any questions or concerns. Patient discharged from [facility] Discharge date: 07/12/24 Admitted for: Syncope Readmission [...] Gonzalez RN August 01, 2024 10:46 AM [facility] 08-01-2024 History of Presen t illness Narrative Transitional Care Management (TCM) Follow-Up Note PCP Update / Actionable Items N/A - No specialty updates needed Patient Source: Sfc-nx-Pyaelui (OON) Discharge Outreach Summary: Pt reports she is currently experiencing cold symptoms, congestion, fatigue. Denies any fever, chills, vomiting. Blood sugar continues to be up and down over the last week in the 200's, using SSI . Pt. encouraged to call PCP with any questions or concerns. Patient discharged from [facility]. Discharge date: 07/12/24 Admitted for: Syncope Readmission [...] 2024 10:46 AM documented in this encounter [facility] 08-01-2024 Note Patient Outreach [place] [facility] ANA IVORY ([id number]) 1940 F Date Time Provider Department 08/01/24 [facility] [place] your visit today, we recorded the following information about you: Ellen Gonzalez RN 08/01/2024 10:47 AM Signed Transitional Care Management (TCM) Follow-Up Note PCP Update / Actionable Items N/A - No specialty updates needed Patient Source: Zdy-rb-Tbmtgot (OON) Discharge Outreach Summary: Pt reports she is currently experiencing cold symptoms, congestion, fatigue. Denies any fever, chills, vomiting. Blood sugar continues to be up and down over the last week in the 200's, using SSI . Pt. encouraged to call PCP with any questions or concerns. Patient discharged from [facility]. Discharge date: 07/12/24 Admitted for: Syncope Readmission [...] 12/29/2020 14 - Other: See Comments NEOSPORIN ([id number]*08/31/19 09 2 - Rash Comments: blisters PIOGLITAZONE [...] mg by joe (more content not included)... [facility] 07-24-2024 Note HNO ID: [id number] Author: ELLEN GONZALEZ RN Service: ? Author Type: Registered Nurse Type: Progress Notes Filed: 07/24/2024 13:18 Note Text: Transitional Care Management (TCM) Follow-Up Note PCP Update / Actionable Items N/A - No specialty updates needed Patient Source: Mwb-ui-Qavmmqx (OON) Discharge Outreach Summary: Pt reports her blood sugar continues to run high during the day - has been running in the high 200's . Pt states she is following with marion Steele at [facility] and awaiting approval on an insulin pump. Encouraged pt to contact Dr. Munguia or PCP 's office should Blood glucose continue to increase above 300. Patient discharged from [facility]. Discharge date: 07/12/24 Admitted for: Syncope Readmission [...] Gonzalez RN July 24, 2024 1:13 PM [facility] 07-24-2024 Note Patient Outreach [place] [facility] [place] ANA IVORY ([id number]) 1940 F Date Time Provider Department 07/24/24 ELLEN GONZALEZ [facility] [place] During your visit today, we recorded the following information about you: Ellen Gonzalez RN 07/24/2024 1:18 PM Signed Transitional Care Management (TCM) Follow-Up Note PCP Update / Actionable Items N/A - No specialty updates needed Patient Source: Mxw-qo-Tuajjxo (OON) Discharge Outreach Summary: Pt reports her blood sugar continues to run high during the day - has been running in the high 200's . Pt states she is following with marion Steele at [facility] and awaiting approval on an insulin pump. Encouraged pt to contact Dr. Munguia or PCP 's office should Blood glucose continue to increase above 300. Patient discharged from [facility]. Discharge date: 07/12/24 Admitted for: Syncope Readmission [...] 12/29/2020 14 - Other: See Comments NEOSPORIN ([id number]*08/31/19 09 2 - Rash Comments: blisters PIOGLITAZONE [...] 28 Units subcutaneousl (more content not included)... [facility] 07-16-2024 Note HNO ID: [id number] Author: MELANY JESUS MA Service: ? Author Type: Shellfish Bed Worker Type: Progress Notes Filed: 07/16/2024 08:55 Note Text: POPULATION HEALTH NAVIGATION OUTREACH Action/[facility] Pool Message: Type: TCM Navigation Team Please assist with scheduling TCM Hospital Discharge Follow up. TCM Eligible until 07/26/24 Patient discharged from: [facility] Discharge date: 07/12/24 Admitted for: Syncope TCM eligible through 07/26/24 Outcome: Final attempt. Patient was seen yesterday for her hospital follow up appointment. Reason for Outreach Returned Call/MyChart Patient Contacted: Unable or unnecessary to reach patient: Patient already scheduled Navigation Signature: Melany Jesus MA July 16, 2024 8:54 AM [facility] 07-15-2024 Instructions Alicia Blount MD - [...] as needed for nausea; prescription sent to [facility]. - Use Ventolin inhaler as prescribed; refill sent to [facility]. - Monitor blood sugar levels and adjust insulin doses as needed. - Follow up with Dr. Munguia for lab work once your blood sugar is between 100-160 mg/dL. - Next appointment in September. documented in this encounter [facility] 07-15-2024 Note HNO ID: [id number] Author: ALICIA BLOUNT MD Service: ? Author [...] a 84 year old lady here for [facility] hospital follow up appointment. Ana [...] has upcoming lab work scheduled with her strip polisher, Dr. Munguia. She also reports frequent urination but denies symptoms of diabetic ketoacidosis. Ana uses a Ventolin inhaler for bronchiectasis and requests a refill. She reports that she is supposed to use it three times a day, six puffs each time, but is currently out of the medication. She has an appointment with her land checker, Dr. Chanel, in August. PAST MEDICAL HISTORY Diagnosis Date Acute gastritis without mention of hemorrhage 10/31/2007 Adverse reaction to non-steroidal anti-inflammatory drug (NSAID) 03/28/2010 KATHERIN positive 03/04/2014 Gonzales's esophagus C. difficile diarrhea 10/18/2011 Cataract 04/17/2013 [facility], Dr. Dada Rodríguez. Mild cataract in L eye- no need for cataract surgery at this time. Continue to follow up the cataract. 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 At this time, we anticipate that [...] assistance with chest tube to [facility]. Return to [facility] on Sunday11/18/[address] . 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 A face to face encounter was performed during this hospital admission r (more content not included)... [facility] 07-15-2024 History of Presen t illness Narrative Transitional Care Management [facility] Eligibility Documentation Program: Transitional Care Management Status: [...] a 84 year old lady here for [facility] hospital follow up appointment. Ana [...] has upcoming lab work scheduled with her strip polisher, Dr. Munguia. She also reports frequent urination but denies symptoms of diabetic ketoacidosis. Ana uses a Ventolin inhaler for bronchiectasis and requests a refill. She reports that she is supposed to use it three times a day, six puffs each time, but is currently out of the medication. She has an appointment with her land checker, Dr. Chanel, in August. 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 Dada Rodríguez. Mild cataract in L eye- no need for cataract surgery at this time. Continue to follow up the cataract. 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 At this time, we anticipate that [...] assistance with chest tube to [facility]. Return to [facility] on Sunday11/18/14 for [...] daily at bedtime. (Dr. Genny funes)) Insulin [place], Disposable, (BD ULTRA-FINE FOZIA PEN NEEDLE) 32 [...] once daily. For 30 days multivitamin-folic acid-biotin (SVXW-QXAD-AIWRN, TN-CK-ACJUEZ,) 400-2,000 mcg tab Take by mouth. collagen, [...] (no units) Date Value 07/18/[address] [facility] Blood cultures x2 from two different sites No growth in 48 hours. Normal [facility] Yeast, not Shanna albicans [place] Count 80,000-100,000 Normal [facility] # Syncope, unspecified syncope type (R55) - [...] Recurrent bronchospasm (J98.09) # Bronchiectasis without complication (HCC) (J47.9) - Refilled Ventolin inhaler; instructed to use as needed for bronchospasm. - Follow-up with land checker Dr. Chanel scheduled in August. - Monitor for any changes in respiratory status or increased frequency of bronchospasm episodes. Alicia Blount MD documented in this encounter [facility] 07-14-2024 Note HNO ID: [id number] Author: MELANY JESUS MA Service: ? Author Type: Shellfish Bed Worker Type: Progress Notes Filed: 07/14/2024 12:41 Note Text: POPULATION HEALTH NAVIGATION OUTREACH Action/FYI CM Pool Message: Type: TCM Navigation Team Please assist with scheduling [facility] Hospital Discharge Follow up. TCM Eligible until 07/26/24 Patient discharged from: [facility] Discharge date: 07/12/24 Admitted for: Syncope TCM eligible through 07/26/24 Outcome: 1st attempt. Spoke with patient. There are no available time slots with Dr. Blount, and she doesn't want to see anyone else. Message forwarded to scheduling staff for further assistance. MyChart declined. Status updated. Reason for Outreach Community Monitoring/Network Navigator Pools AND Phone Line: TCM Patient Contacted: Spoke to patient/parent/or legal guardian Patient identified by name and : Yes Community Monitoring/Network Navigator Pools AND Phone Line actions taken: Unable to find appointment within TCM timeframe - sent to PCP Navigation Signature: Melany Jesus MA July 14, 2024 12:09 PM [facility] 07-14-2024 History of Presen t illness Narrative POPULATION HEALTH NAVIGATION OUTREACH Action/FYI CM Pool Message: Type: TCM Navigation Team Please assist with scheduling TCM Hospital Discharge Follow up. TCM Eligible until 07/26/24 Patient discharged from: [facility] Discharge date: 07/12/24 Admitted for: Syncope TCM eligible through 07/26/24 Outcome: 1st attempt. Spoke with patient. There are no available time slots with Dr. Blount, and she doesn't want to see anyone else. Message forwarded to scheduling staff for further assistance. Akhil declined. Status updated. Reason for Outreach Community [...] TCM Home Visit Referral Source of Stratification: [facility] Hospital Admission Status: Discharged Readmission Risk Score: n/a Patient's zip code: [address] Is zip code within program service area: [...] Eligible until 07/26/24 Thank you Patient Source: Psg-pt-Mwcdxuh (OON) Discharge Outreach Summary: Spoke with pt's [...] pt is staying hydrated. Patient discharged from [facility] Discharge date: 07/12/24 Admitted for: Syncope Readmission Risk: n/a Value-Based Contract: ACO Contact: Contact made with patient: Yes Hi, my name is Ellen Gonzalez RN and I am calling from the [facility] on behalf of your Primary Care Provider, [...] like to speak with a social work rehabilitation team lead to help give you support for any [...] I will send your request to a tanning consultant who will contact and assist you with [...] Complete Navigation Team box and route to [facility] ([id number]) for scheduling. Education Patient and family educated on issues/questions related to reason for admission, transition of care topics, and follow-up needed upon discharge. Targets addressed / completed during outreach: Contact patient within two (2) business days Outreach Outcome: Enrolled in TCM Care Management partners utilized: Navigation Team Ellen Gonzalez RN July 14, 2024 11:58 AM documented in this encounter [facility] 07-14-2024 Note HNO ID: [id number] Author: ELLEN GONZALEZ RN Service: ? Author Type: Registered Nurse Type: Progress Notes Filed: 07/14/2024 12:07 Note Text: Transition Care Management (TCM) Initial Outreach PCP Update / Actionable Items HRTIC TCM Home Visit Referral Source of Stratification: [facility] Hospital Admission Status: Discharged Readmission Risk Score: n/a Patient's zip code: [address] Is zip code within program service area: [...] Eligible until 07/26/24 Thank you Patient Source: Eqx-wb-Leplrsz (OON) Discharge Outreach Summary: Spoke with pt's [...] pt is staying hydrated. Patient discharged from [facility] Discharge date: 07/12/24 Admitted for: Syncope Readmission Risk: n/a Value-Based Contract: ACO Contact: Contact made with patient: Yes Hi, my name is Ellen Gonzalez RN and I am calling from the [facility] on behalf of your Primary Care Provider, [...] like to speak with a social work rehabilitation team lead to help give you support for any [...] I will send your request to a tanning consultant who will contact and assist you with [...] Complete Navigation Team box and route to [facility] ([id number]) for scheduling. Education Patient and family educated on issues/questions related to reason for admission, transition of care topics, and follow-up needed upon discharge. Targets addressed / completed during outreach: Contact patient within two (2) business days Outreach Outcome: Enrolled in TCM Care Management partners utilized: Navigation Team Ellen Gonzalez RN July 14, 2024 11:58 AM [facility] 07-14-2024 Note Patient Outreach [place] [facility] [place] ANA IVORY ([id number]) 1940 F Date Time Provider Department 07/14/24 [facility] [place] your visit today, we recorded the following information about you: Ellen Gonzalez RN 07/14/2024 12:07 PM Signed Transition Care Management (TCM) Initial Outreach PCP Update / Actionable Items HRTIC TCM Home Visit Referral Source of Stratification: [facility] Hospital Admission Status: Discharged Readmission Risk Score: n/a Patient's zip code: [address] Is zip code within program service area: [...] Eligible until 07/26/24 Thank you Patient Source: Kxp-bs-Amlcwwk (OON) Discharge Outreach Summary: Spoke with pt's [...] pt is staying hydrated. Patient discharged from [facility]. Discharge date: 07/12/24 Admitted for: Syncope Readmission Risk: n/a Value-Based Contract: ACO Contact: Contact made with patient: Yes Hi, my name is Ellen Gonzalez RN and I am calling from the [facility] on behalf of your Primary Care Provider, [...] like to speak with a social work rehabilitation team lead to help give you support for any [...] I will send your request to a tanning consultant who will contact and assist you with [...] Complete Navigation Team box and route to [facility] ([id number]) for scheduling. Education Patient and family educated [...] MA 07/14/2024 12:41 (more content not included)... [facility] 07-12-2024 Note [facility] 05-27-2024 Instructions Alicia Blount MD - 05/27/2024 11:56 AM EDT - Take lorazepam as prescribed; [facility] [place]. - Continue taking Cymbalta as prescribed. - [...] Take metoprolol as prescribed; refill sent to [facility]. - Take cephalexin (Keflex) every night as [...] in four months. documented in this encounter [facility] 05-27-2024 Note HNO ID: [id number] Author: ALICIA BLOUNT MD Service: ? Author Type: Physician Type: Progress Notes Filed: 07/04/2024 17:59 Note Text: This note was created using NXE. Subjective Ana Ivory is a 84 year [...] esophagus C. difficile diarrhea 10/18/2011 Cataract 04/17/2013 [facility], Dr. Dada Rodríguez. Mild cataract in L eye- no need for cataract surgery at this time. Continue to follow up the cataract. 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 At this time, we anticipate that [...] care [facility] Return to [facility] on Sunday11/18/14 for [...] of complication, not (more content not included)... [facility] 05-27-2024 History of Presen t illness Narrative This note was created using NXE. Subjective Ana Ivory is a 84 year [...] esophagus C. difficile diarrhea 10/18/2011 Cataract 04/17/2013 [facility], Dr. Dada Rodríguez. Mild cataract in L eye- no need for cataract surgery at this time. Continue to follow up the cataract. 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 At this time, we anticipate that [...] care [facility] Return to [facility] on Sunday11/18/14 for [...] Genny Munguia refills) (Patient taking differently: Inject 22 Units subcutaneously daily at bedtime. (Dr. Genny Munguia refills)) Insulin [place], Disposable, (BD ULTRA-FINE FOZIA PEN NEEDLE) 32 [...] mouth once daily. flash glucose scanning reader ([employer] City[employer]YLE DONTRELL 2 READER) flash glucose sensor (FREESTYLE [...] once daily. For 30 days multivitamin-folic acid-biotin (NFKP-ATQB-PTAAH, BA-QX-HWIGQN,) 400-2,000 mcg tab Take by mouth. collagen, bovine, 100 % powd Apply to affected area. Cranberry-Vitamin C-Vitamin E (CRANBERRY PLUS VITAMIN C) 140-100 mg cap Patient takes Cranberry with Vitamin C capsule that contains 15,000 mg Cranberry and 100mg Vitamin C Biotin 2,500 mcg cap Nurse reports patient taking 1500 mcg dose once daily (cannot find 1500mcg dose on menu) Miscellaneous Medical Supply [facility] [employer] (E08.40, Z79.4) Diabetes mellitus due [...] (F41.9) - Refilled lorazepam prescription, sent to [facility] in [place] with a fill date of June 05 and added refills to prevent running out before the next appointment. # Essential hypertension (I10) - Blood pressure well-controlled at 120s/60s. - Refilled metoprolol prescription, sent to [facility]. # Diabetes 1.5, managed as [...] Alicia Blount MD documented in this encounter [facility] 05-01-2024 Telephone encounter Note Noted, agree with ER. Monitor for ER visit and schedule follow-up as needed. [facility] 05-01-2024 Miscellaneous Notes Noted, agree with ER. Monitor for ER visit and schedule follow-up as needed. Patient reports having constant moderate to severe headache for 5 days now. Tylenol gives no relief. Also having diarrhea, no appetite, nausea- feels like will vomit, whole body aches, fatigue. Patient sounds weak and tired when talking. 3 home covid tests were negative. Last covid test done Tu. Patient has hx: stroke 2 yrs ago. [...] tests were negative. Last covid test was Tu. No idea what's causing the headache and [...] aches, fatigue. 10. : No. Protocols used: [id number]-TZ documented in this encounter [facility] 05-01-2024 Telephone encounter Note Patient reports having [...] aches, fatigue. 10. : No. Protocols used: Fhcfonme-LJGMQ-GU [facility] 04-28-2024 Telephone encounter Note Called to [...] floor at Radiology: [address]; [place] [address] * If you need to cancel or reschedule this test or have any questions regarding this test, please call [phone]. [facility] 04-28-2024 Miscellaneous Notes Called to review [...] floor at Radiology: [address]; [place] [address] * If you need to cancel or reschedule this test or have any questions regarding this test, please call [phone]. documented in this encounter [facility] 03-18-2024 Telephone encounter Note Prescription Refill Information [...] by mouth daily at 6 am. Mague Tirado [facility] March 18, 2024 2:25 PM [facility] 03-18-2024 Miscellaneous Notes Prescription Refill Information The [...] by mouth daily at 6 am. Mague Tirado [facility] March 18, 2024 2:25 PM documented in this encounter [facility] 03-04-2024 Telephone encounter Note Called and left [...] floor at Radiology: [address]; [place] [address] * If you need to cancel or reschedule this test or have any questions regarding this test, please call [phone]. [facility] 03-04-2024 Miscellaneous Notes Called and left VM [...] floor at Radiology: [address]; [place] [address] * If you need to cancel or reschedule this test or have any questions regarding this test, please call [phone]. documented in this encounter [facility] 02-17-2024 History of Presen t illness Narrative [...] a full evaluation. documented in this encounter [facility] 02-17-2024 Progress note Formatting of t his note might be different from the original. NSR. At OV encouraged to schedule appointment with cardiology. [facility] 02-17-2024 Miscellaneous Notes NSR. At OV encouraged to schedule appointment with cardiology. documented in this encounter [facility] 02-12-2024 History of Presen t illness Narrative [...] PATIENT PRESENTS WITH AN IMPLANTABLE OR ATTACHED E MERCHANT: No RADIOLOGY DEPARTMENT: General X-ray: Exam(s) Completed: Chest X-Ray PERIPHERAL IV DATA: Not applicable SIGNED BY: RT Gardenia(R) February 12, 2024 11:23 AM documented in this encounter [facility] 02-12-2024 History of Presen t illness Narrative [...] esophagus C. difficile diarrhea 10/18/2011 Cataract 04/17/2013 [facility], Dr. Dada Rodríguez. Mild cataract in L eye- no need for cataract surgery at this time. Continue to follow up the cataract. 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 At this time, we anticipate that [...] assistance with chest tube to [facility]. Return to OPD on Sunday11/18/14 for [...] Lansoprazole, Macrobid [Nitrofurantoin Monohyd/M-Cryst], Metformin, Miconazole, Neosporin [Zpskcxsy-Vicpcozxnb-Kfqcwyzpg], Pioglitazone, Protonix [Pantoprazole], Relafen [Nabumetone], Shrimp, and [...] directed. (Dr. Genny funes) Also has SSI. insulin glargine (LANTUS SOLOSTAR U-100 INSULIN) 100 unit/mL (3 mL) Inject 20 Units subcutaneously daily at bedtime. (Dr. Genny Munguia refjere) gabapentin (NEURONTIN) 300 mg capsule Take 1 capsule by mouth two times a day for 180 days. Morning and bedtime Insulin [place], Disposable, (BD ULTRA-FINE FOZIA PEN NEEDLE) 32 [...] once daily. For 30 days multivitamin-folic acid-biotin (LOAK-XRRW-TNQOL, LW-CN-IXKDVS,) 400-2,000 mcg tab Take by mouth. collagen, [...] abnormality. Dictated by : DO Martin COHN APRN.INTERMEDIATE DESIGNER documented in this encounter [facility] 01-31-2024 Telephone encounter Note done [facility] 01-31-2024 Miscellaneous Notes done Carotid ultrasounds are done in vascular lab. Pt will need to be scheduled in vas lab. May we please have vascular lab orders placed. US Carotid Arteries [facility] Thank you very much! Yuli Bal RDMS documented in this encounter [facility] 01-31-2024 Telephone encounter Note Carotid ultrasounds are done in vascular lab. Pt will need to be scheduled in vas lab. May we please have vascular lab orders placed. US Carotid Arteries [facility] Thank you very much! Yuli Bal RDMS [facility] 01-31-2024 Instructions Clarence Berry APRN.CNS - 01/31/2024 11:02 AM EDT Be sure to drink plenty of fluids, aim for 64 ounces per day. Avoid being out in the severe heat. Wear compression stockings when sitting or standing for long periods of time. Please make an appointment with cardiology. Please wear supportive shoe wear and let your utility systems repairer operator know if you are not continuing to have ankle or foot discomfort. documented in this encounter [facility] 01-31-2024 History of Presen t illness Narrative SUBJECTIVE: RSV Vaccine(1 - 1-dose 60+ series) Never done DTaP,Tdap,Td Vaccine(2 - Td or Tdap) due on 03/22/2016 Covid-19 Vaccine(2022- season) due on 04/13/2023 Behavioral Health Screening [...] Type 1 (Hcc) She was admitted to [facility] June 10 through June 12 for [...] PT and OT evaluation along with social work lecturer prior to discharge. Continued on Glucerna shakes with meals for increased nutrition until taking oral consistently better. Discharged to SNF. Admit TCU 06/13/2023 to 06/20/2023 for rehabilitation prior to discharge home. She has [facility] home health care. There was a [...] at this time. Followed by Dr Munguia [facility] regarding DM. DIABETES MELLITUS: Without report [...] for 180 days. Morning and bedtime Insulin [place], Disposable, (BD ULTRA-FINE FOZIA PEN NEEDLE) 32 [...] mouth once daily. flash glucose scanning reader (Fun CitySTYLE DONTRELL 2 READER) flash glucose sensor (FREESTYLE [...] once daily. For 30 days multivitamin-folic acid-biotin (JRUO-ECIB-THOCX, TY-WY-MPSCAF,) 400-2,000 mcg tab Take by mouth. collagen, [...] cardiology. - not yet scheduled unless going elsewhere/[facility]. Please wear supportive shoe wear and let your utility systems repairer operator know if you are not continuing to have ankle or foot discomfort. Clarence Berry APRN.CNS Medical Decision Making: Problems: Moderate: 1+ chronic illnesses with change Data: Unique test(s) ordered: 2 Medical Decision Making Level: 3 - Low documented in this encounter [facility] 01-15-2024 Telephone encounter Note The following approved medication requests have been transmitted electronically. Requested Prescriptions Signed Prescriptions Disp Refills LORazepam (ATIVAN) 1 mg tablet 30 tablet 2 Sig: Take 0.5-1 tablets by mouth once daily as needed for up to 90 days. Authorizing Provider: ALICIA BLOUNT MD [facility] 01-15-2024 Miscellaneous Notes The following approved medication [...] you. Marisol Escobedo. documented in this encounter [facility] 01-14-2024 Telephone encounter Note Patient has been [...] care: 01/31/2024 Please advise. Thank you. Marisol Escalante Pss. [facility] 12-24-2023 Note Addended by: CLARENCE BERRY on: 12/24/2023 12:33 PM Modules accepted: Orders [facility] 12-24-2023 Miscellaneous Notes Addended by: CLARENCE BERRY [...] care: 01/31/2024 Please advise. Thank you. Nargis Miller Pss. documented in this encounter [facility] 12-24-2023 Telephone encounter Note Patient has been [...] 01/31/2024 Please advise. Thank you. Nargis Escobedo. [facility] 12-11-2023 Telephone encounter Note Patient given results and verbalized understanding of instructions given. Kasandra Cast LPN [facility] 12-11-2023 Miscellaneous Notes Patient given results and verbalized understanding of instructions given. Kasandra Cast LPN Urine culture reveals bacterial growth. The ATB selected is appropriate. Please complete. Follow up with PCP for continued sx. Please advise patient. documented in this encounter [facility] 12-11-2023 Telephone encounter Note Urine culture reveals bacterial growth. The ATB selected is appropriate. Please complete. Follow up with PCP for continued sx. Please advise patient. [facility] Work Phone: 12-09-2023 History of Presen t [...] esophagus C. difficile diarrhea 10/18/2011 Cataract 04/17/2013 [facility], Dr. Dada Rodríguez. Mild cataract in L eye- no need for cataract surgery at this time. Continue to follow up the cataract. 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 At this time, we anticipate that [...] assistance with chest tube to [facility]. Return to OPD on Sunday11/18/14 for [...] Lansoprazole, Macrobid [Nitrofurantoin Monohyd/M-Cryst], Metformin, Miconazole, Neosporin [Eqnheggn-Nqhzngrota-Gwspioyjb], Pioglitazone, Protonix [Pantoprazole], Relafen [Nabumetone], Shrimp, and [...] for 180 days. Morning and bedtime Insulin [place], Disposable, (BD ULTRA-FINE FOZIA PEN NEEDLE) 32 [...] once daily. For 30 days multivitamin-folic acid-biotin (NZGJ-EIYB-DRAGE, XW-CZ-TQCNLY,) 400-2,000 mcg tab Take by mouth. collagen, [...] Patient agreeable to treatment plan. Antoinette Agrawal APRN.INTERMEDIATE DESIGNER documented in this encounter [facility] 10-01-2023 History of Presen t illness Narrative This note was created using NXE. 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 Dada Rodríguez. Mild cataract in L eye- no need for cataract surgery at this time. Continue to follow up the cataract. 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 At this time, we anticipate that [...] assistance with chest tube to [facility]. Return to OPD on Sunday11/18/14 for [...] for 180 days. Morning and bedtime Insulin [place], Disposable, (BD ULTRA-FINE FOZIA PEN NEEDLE) 32 [...] once daily. For 30 days multivitamin-folic acid-biotin (CKFK-RLLN-SDBKB, EY-UK-ZJXQKN,) 400-2,000 mcg tab Take by mouth. collagen, [...] subcutaneously daily at bedtime. (Dr. 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 HGBA1c, CMP, CBC, and lipd panel were previously ordered. Patient is waiting at lab now. Please advise. documented in this encounter [facility] 07-21-2023 Miscellaneous Notes Spoke with pt and [...] Rupali Muñoz Pss documented in this encounter [facility] 07-02-2023 History of Presen t illness Narrative [...] Dehydration Diabetes 1.5, Managed As Type 1 ([facility]) She was admitted to [facility] June 10 through June 12 for [...] PT and OT evaluation along with social work lecturer prior to discharge. Continued on Glucerna shakes with meals for increased nutrition until taking oral consistently better. Discharged to SNF. Admit TCU 06/13/2023 to 06/20/2023 for rehabilitation prior to discharge home. She has [facility] home health care. There was a [...] seeing an orthopedic provider for ta pain, [facility] where she has gone before. Notes she [...] is soft. Musculoskeletal: Legs: Comments: TTP left at Skin: General: Skin is warm and dry. [...] (Dr. Genny Munguia refills) Also has SSI. Insulin [place], Disposable, (BD ULTRA-FINE FOZIA PEN NEEDLE) 32 [...] once daily. For 30 days multivitamin-folic acid-biotin (WQGG-VRED-SUPBK, AC-JK-PXLUWY,) 400-2,000 mcg tab Take by mouth. Insulin [place], Disposable, (EASY TOUCH) 31 gauge x 3/16 Use 1 needle for each dose. 4x daily Miscellaneous Medical [facility] [employer] (E08.40, Z79.4) Diabetes mellitus due [...] esophagus C. difficile diarrhea 10/18/2011 Cataract 04/17/2013 [facility], Dr. Dada Rodríguez. Mild cataract in L eye- no need for cataract surgery at this time. Continue to follow up the cataract. 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 At this time, we anticipate that [...] Abs Lymph 1.00 - 4.00 k/uL 1.79 Licking% % 10.0 Abs Licking <0.87 k/uL 0.60 Eosin% % 4.0 Abs [...] 799.3, ICD10: R53.81 (primary diagnosis) Admission TCU, [facility] following RN, PT Endorse walking hourly [...] 4 - Moderate documented in this encounter [facility] 06-29-2023 Miscellaneous Notes Can review medications at visit Crystal aware of same. Patient would like the [...] problems may continue unchanged. Isabella nurse @ [facility] calling with plan of care. Nursing [...] If medication change, please call Isabella @ [phone]. Jaqueline Jones RN documented in this encounter [facility] 06-29-2023 Miscellaneous Notes rosina Sanchez Yury PT @ [facility] calling with plan of care. PT will see patient 2 x/week for three weeks for functional mobility. If agree, no call back needed. Jaqueline Jones RN documented in this encounter [facility] 06-06-2023 Note HNO ID: [id number] Author: Simran Ritchie, MANNY Service: Nursing Author Type: Registered Nurse Type: Nursing Progress Note Filed: 06/06/2023 11:19 AM Note Text: Other: pt ready for OR, call light in reach, called to bedside. [facility] 06-06-2023 History and physical note Images from the original note were not included. 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 Dada Rodríguez. Mild cataract in L eye- no need for cataract surgery at this time. Continue to follow up the cataract. 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 At this time, we anticipate that [...] assistance with chest tube to [facility]. Return to OPD on Sunday11/18/14 for [...] EGD TRANSORAL BIOPSY SINGLE/MULTIPLE 11/23/2011 EGD W/O [facility] SPEC VARICIES INJ 12/21/2021 EGD W/O BRS [...] 1 tablet by mouth once daily. Insulin [place], Disposable, (BD ULTRA-FINE FOZIA PEN NEEDLE) 32 [...] once daily. For 30 days multivitamin-folic acid-biotin (LUTQ-SNME-ZWITE, PB-DE-XPXQGA,) 400-2,000 mcg tab Take by mouth. CRANBERRY collagen, bovine, 100 % powd Apply to affected area. Insulin [place], Disposable, (EASY TOUCH) 31 gauge x 3/16 [...] Iodine, Lansoprazole, Macrobid [Nitrofurantoin Monohyd/M-Cryst], Metformin, Neosporin [Xejdkirw-Hooyjwedmx-Rwwdtgwba], Protonix [Pantoprazole], Relafen [Nabumetone], Shrimp, and Actos [...] entered by the nurse and reviewed by va Nursing Notes: Debra Couhc RN 06/04/2023 10:04 AM Signed REVIEW OF [...] will be scheduled for the procedure at [facility]. She chooses to have procedure done by [...] TIME: 11:56 AM documented in this encounter [facility] 06-06-2023 Nurse Note Other: pt ready for OR, call light in reach, called to bedside. documented in this encounter [facility] 06-05-2023 Miscellaneous Notes Pt called and is notified of providers message and instructions. Pt voices understanding. She will try to call Dr Genny Munguia's office to see how she would like her to take her insulin. Judith Renteria, MANNY Attempted to call pt back but phone [...] high than low. 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 Dada Rodríguez. Mild cataract in L eye- no need for cataract surgery at this time. Continue to follow up the cataract. 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 At this time, we anticipate that [...] assistance with chest tube to [facility]. Return to OPD on Sunday11/18/14 for [...] 1 tablet by mouth once daily. Insulin [place], Disposable, (BD ULTRA-FINE FOZIA PEN NEEDLE) 32 [...] once daily. For 30 days multivitamin-folic acid-biotin (ECBZ-JJBJ-TFPSE, HP-BJ-QQSFFM,) 400-2,000 mcg tab Take by mouth. CRANBERRY collagen, bovine, 100 % powd Apply to affected area. Insulin [place], Disposable, (EASY TOUCH) 31 gauge x 3/16 [...] Iodine, Lansoprazole, Macrobid [Nitrofurantoin Monohyd/M-Cryst], Metformin, Neosporin [Lfppbbzk-Pfcecajqiu-Aolicygcd], Protonix [Pantoprazole], Relafen [Nabumetone], Shrimp, and Actos [...] entered by the nurse and reviewed by va Nursing Notes: Debra Couch RN 06/04/2023 10:04 [...] will be scheduled for the procedure at [facility]. She chooses to have procedure done by [...] Radha Balderrama MD documented in this encounter [facility] 06-04-2023 Nurse Note REVIEW OF SYSTEMS: General: [...] Debra Couch RN documented in this encounter [facility] 05-31-2023 Instructions Clarence Berry APRN.INSPECTOR OPEN DIE - 05/31/2023 9:53 AM EDT Consider vaccines: Tdap, influenza, Covid booster, hepatitis B vaccine. 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 Due for EGD in 2023 or 2024. documented in this encounter [facility] 05-31-2023 History of Presen t illness Narrative SUBJECTIVE: Hepatitis B Vaccine(1 of 3 - Risk 3-dose series) Never done RSV Vaccine(1 - 1-dose 60+ series) Never done DTaP,Tdap,Td Vaccine(2 - Td or Tdap) due on 03/22/2016 Influenza Vaccine(1) due on 04/13/2023 Covid-19 Vaccine( - 2022-24 season) due on 04/13/2023 HPI Ana Ivory [...] yet had infusion. Followed by Dr Bran land checker. History of carcinoid bronchial adenoma, left, s/p [...] No sensory deficit. Motor: No weakness. Coordination: Ycxihm-Rmgz-Npowxs Test normal. Gait: Gait normal. ALLERGIES Allergen [...] 1 tablet by mouth once daily. Insulin [place], Disposable, (BD ULTRA-FINE FOZIA PEN NEEDLE) 32 [...] once daily. For 30 days multivitamin-folic acid-biotin (KXSL-TUDT-LNJBB, QL-WE-VVZXNP,) 400-2,000 mcg tab Take by mouth. CRANBERRY collagen, bovine, 100 % powd Apply to affected area. 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 Dada Rodríguez. Mild cataract in L eye- no need for cataract surgery at this time. Continue to follow up the cataract. 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 At this time, we anticipate that [...] assistance with chest tube to [facility]. Return to OPD on Sunday11/18/14 for [...] Abs Lymph 1.00 - 4.00 k/uL 1.79 Licking% % 10.0 Abs Licking <0.87 k/uL 0.60 Eosin% % 4.0 Abs [...] C7A.090 Stable, no recent exacerbation. Followed by land checker 3. Encounter for immunization - ICD9: V03.89, ICD10: Z23 - RSV PRINTED PHARMACY INSTRUCTIONS - TDAP PRINTED PHARMACY INSTRUCTIONS - INFLUENZA VACCINE, PRSV FREE, AGE 65+ YR, HIGH DOSE, QUADRIVALENT (FLUZONE HIGH-DOSE) - [employer] COVID-19 VACCINE (2022- SEASON) AGE 12+ YR [...] 4 - Moderate documented in this encounter [facility] 04-08-2023 Navya Rios APRN.CNP - 04/08/2023 12:58 PM EDT For ear pain- Flonase nasal spray daily. Can also take over the counter analgesics such as Tylenol or ibuprofen unless you have been told otherwise documented in this encounter [facility] 04-08-2023 History of Presen t illness Narrative [...] Navya Thrasher APRN.CNP documented in this encounter [facility] 04-06-2023 Miscellaneous Notes Spoke with pt and [...] approved to continue Call back at phone [phone] Pt called to let you know her [...] Chelsy Valverde LPN documented in this encounter [facility] 02-08-2023 Miscellaneous Notes Duplicate request. Juana Muro [...] advise. ARTURO Silva documented in this encounter [facility] 01-25-2023 Miscellaneous Notes Orders placed as requested. Quiana Thrasher APRN.NEMESIO Pt at [facility] now lab orders due. Please file. Pt has appt 01/29/23 with pcp documented in this encounter [facility] 01-01-2023 History of Presen t illness Narrative [...] 2023 11:34 AM documented in this encounter [facility] 10-17-2022 History of Presen t illness Narrative [...] head on the floor. Notes jaw and sabianist hurt. Impression was no sign of fracture [...] taking naproxen or Tylenol currently. Has used Baggs intermittently which has helped with pain. She [...] her arms. Celebrex does help. Does use Baggs as needed for breakthrough pain. Using pressure [...] No sensory deficit. Motor: No weakness. Coordination: Qwidqx-Rrhl-Nrpbkx Test normal. Gait: Gait normal. ALLERGIES Allergen [...] Actos [Pioglitazone* Swelling flash glucose scanning reader ([employer] DONTRELL 2 READER)^^Disp: ^Rfl: flash glucose sensor [...] mouth once daily.^Disp: 90 tablet^Rfl: 3 Insulin [place], Disposable, (BD ULTRA-FINE FOZIA PEN NEEDLE) 32 [...] daily. For 30 days^Disp: ^Rfl: multivitamin-folic acid-biotin (HOYD-NZJB-JRWFV, NZ-KS-OINDBJ,) 400-2,000 mcg tab^Take by mouth.^Disp: ^Rfl: CRANBERRY^ ^Disp: ^Rfl: collagen, bovine, 100 % powd^Apply to affected area.^Disp: ^Rfl: Insulin [place], Disposable, (EASY TOUCH) 31 gauge x 16^Use 1 needle for each dose. 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 Dada Rodríguez. Mild cataract in L eye- no need for cataract surgery at this time. Continue to follow up the cataract. 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 At this time, we anticipate that [...] assistance with chest tube to [facility]. Return to OPD on Sunday11/18/14 for [...] MG-ACETAMINOPHEN 325 MG TABLET 3. Contusion of sabianist region, initial encounter - ICD9: 920, ICD10: [...] arousable. Improved pain control with Celebrex and Baggs for breakthrough. Wtkt-hqt-ychdlsg constipation remedy advised when taking hydrocodone. She defers physical therapy for now, prefers to see a chiropractor first. ER for any severe or concerning symptoms Clarence Berry APRN.INSPECTOR OPEN DIE Medical Decision Making: Problems: Moderate: Acute illness with systemic symptoms Risk: Moderate: Drug management Medical Decision Making Level: 4 - Moderate documented in this encounter [facility] 10-11-2022 Miscellaneous Notes Ana Ivory [place]: [id number] - GISELE - Rx #: [id number] help? Call us at Outcome Approvedtoday GISELE Case: [id number], Status: Approved, Coverage Starts on: 08/13/2022 12:00:00 AM, Coverage Ends on: 08/12/2023 12:00:00 AM. Questions? Contact . Pharmacy notified. Ana [facility]ory ([place]: [id number]) - [id number] HYDROcodone-Acetaminophen 5-325MG tablets Status: GISELE Request Created: October 10, 2022 [id number] Sent: October 11, 2022 documented in this encounter [facility] 10-10-2022 History of Presen t illness Narrative [...] 2022 2:32 PM documented in this encounter [facility] 10-10-2022 History of Presen t illness Narrative [...] head on the floor. Notes jaw and sabianist hurt. Impression was no sign of fracture [...] taking naproxen or Tylenol currently. Has used Baggs intermittently which has helped with pain. She [...] No sensory deficit. Motor: No weakness. Coordination: Xwopvq-Jgjo-Oxnstt Test normal. Gait: Gait normal. ALLERGIES Allergen [...] mouth once daily.^Disp: 90 tablet^Rfl: 3 Insulin [place], Disposable, (BD ULTRA-FINE FOZIA PEN NEEDLE) 32 gauge x 5/32^Use one needle for each dose, 4 times [...] daily. 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 Dada Rodríguez. Mild cataract in L eye- no need for cataract surgery at this time. Continue to follow up the cataract. 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 At this time, we anticipate that [...] assistance with chest tube to [facility]. Return to OPD on Sunday11/18/14 for [...] MG-ACETAMINOPHEN 325 MG TABLET 3. Contusion of sabianist region, initial encounter - ICD9: 920, ICD10: [...] needed for breakthrough pain and at bedtime. Hqxg-ciy-bnubddj constipation remedy advised when taking hydrocodone. ER for any severe or concerning symptoms Clarence Berry APRN.INSPECTOR OPEN DIE Medical Decision Making: Problems: Moderate: Acute illness with systemic symptoms Data: Unique test(s) ordered: 1 Risk: Moderate: Drug management Medical Decision Making Level: 4 - Moderate documented in this encounter [facility] 09-30-2022 Instructions Alicia Blount MD - 09/30/2022 10:36 AM EST Decrease supper time insulin since having lows under 70--try decreasing to 20 units then titrate back up if sugar going over 180 at bedtime. Goal in AM is sugar under 150. Nonfasting sugars--under 180 documented in this encounter [facility] 09-30-2022 History of Presen t illness Narrative Images from the original note were not included. This note was created using NXE. Subjective Ana Ivory is a 82 year [...] floor. Right side of jaw hurts and sabianist. Hurts a little to chew. 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 Dada Rodríguez. Mild cataract in L eye- no need for cataract surgery at this time. Continue to follow up the cataract. 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 At this time, we anticipate that [...] mouth daily at bedtime. As directed Insulin [place], Disposable, (BD ULTRA-FINE FOZIA PEN NEEDLE) 32 [...] once daily. For 30 days multivitamin-folic acid-biotin (POMG-HCLY-VQTRL, OL-GO-ZDSDVQ,) 400-2,000 mcg tab Take by mouth. CRANBERRY collagen, bovine, 100 % powd Apply to affected area. insulin glargine (LANTUS SOLOSTAR U-100 INSULIN) 100 unit/mL (3 mL) Inject 18 Units subcutaneously daily at bedtime. (Dr. Genny Munguia refills) (Patient taking differently: Inject 20 Units subcutaneously daily at bedtime. (Dr. Genny Munguia refills)) Insulin [place], Disposable, (EASY TOUCH) 31 gauge x 3/16 [...] Don) (Patient not taking: No sig reported) [employer] [facility] [employer] (E08.40, Z79.4) Diabetes mellitus due [...] with long-term current use of insulin ([facility]) E08.40 Z79.4 2. Contusion of right foot, initial encounter S90.31XA HYDROcodone-acetaminophen (NORCO) 5-325 mg per tablet plantar toes 3. Contusion of sabianist region, initial encounter S00.83XA HYDROcodone-acetaminophen (NORCO) 5-325 [...] the date of the service which included mkwr-ii-geii patient care, completing clinical documentation, obtaining and/or reviewing separately obtained history, performing a medically appropriate examination, counseling and educating the patient/family/caregiver, ordering medications, tests, or procedures, and communicating results to the patient/family/caregiver. Alicia Blount MD documented in this encounter [facility] 08-21-2022 Miscellaneous Notes Patient notified of below [...] before next appointment. documented in this encounter [facility] 08-15-2022 Procedure note [facility] 08-02-2022 Miscellaneous Notes Filed order Patient is at [facility] today requesting lab orders. Lab is stating they are not able to pull these order until NEXT July. Please review and file. documented in this encounter [facility] 06-28-2022 Miscellaneous Notes Spoke with pt and information listed below given. Pt verbalizes understanding. Chelsy Valverde LPN The following approved medication requests have been transmitted electronically. Requested Prescriptions Signed Prescriptions Disp Refills gabapentin (NEURONTIN) 300 mg capsule 180 capsule 1 Sig: Take 1 capsule by mouth twice daily for 180 days. Morning and bedtime Authorizing Provider: ALICIA BLOUNT MD Below noted. Lyrica taken off medlist Patient asking for the status of her request for medication gabapentin. Patient wanting this medication sent to [facility] in [place]. Please call patient when complete. Patient is requesting to go back on the Gabapentin rather then refill the lyrica. She states she was on the lyrica for some time switched to the gabapentin and then back to the lyrica but feels gabapentin does better. She uses [facility] in [place]. documented in this encounter [facility] 06-16-2022 Miscellaneous Notes Faxed ECHO results to Dr. Bran, [facility] Pulm ([phone]), and Dr. Munguia, [facility] Endo ([phone]) per patient request. documented in this encounter [facility] 06-16-2022 Miscellaneous Notes Patient has been identified [...] Eris Keene RN documented in this encounter [facility] 05-31-2022 Miscellaneous Notes Noted Patient returned call and went over notes below from Dr Blount, Printed copy of ECHO and faxed to Dr Bran [phone] genny Munguia [phone]. Patient said she will see what those [...] ejection fraction. If she prefers to see acute care certified nursing assistant in town, can go to [facility] since goes to providers at [facility] already. If she has had no acute changes in SOB or swelling and wants to wait to discuss at July appointment, that is fine too unless Dr. Munguia or Dr. Bran think she needs work up sooner than then. Patient calling she had appt today with Dr Genny Munguia ,[facility]. Dr Munguia wanted patient to call [...] done? Please advise documented in this encounter [facility] 05-17-2022 Miscellaneous Notes Patient notified.Suma Shepard LPN Let patient know their covid19/influenza test was negative. documented in this encounter [facility] 05-16-2022 Instructions Kaci Savage APRN.NEMESIO - 05/16/2022 [...] virtual appointment or schedule an appointment with [facility]. - Follow-up with your PCP in 3-5 days if symptoms have not improved or sooner if symptoms worsen - Discussed red flags and need for immediate medical evaluation if any occur. - Discussed supportive care treatment with fluids, rest and analgesia. - Discussed expected course of illness Kaci Savage APRN.INTERMEDIATE DESIGNER Beginning Home Isolation Isolation is used to [...] to your local emergency facility: Notify the strap making machine operator that you are seeking care [...] concerning to you. 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 Dada Rodríguez. Mild cataract in L eye- no need for cataract surgery at this time. Continue to follow up the cataract. 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 At this time, we anticipate that [...] EGD TRANSORAL BIOPSY SINGLE/MULTIPLE 11/23/2011 EGD W/O BRS SPEC VARICIES INJ 12/21/2021 EGD W/O BRSH [...] Iodine, Lansoprazole, Macrobid [Nitrofurantoin Monohyd/M-Cryst], Metformin, Neosporin [Cwnvebok-Khmgiyoilu-Oqymmckcn], Protonix [Pantoprazole], Relafen [Nabumetone], Shrimp, and Actos [...] daily. For 30 days^Disp: ^Rfl: multivitamin-folic acid-biotin (TXVH-CMEK-QBKGE, VD-MD-IDEMER,) 400-2,000 mcg tab^Take by mouth.^Disp: ^Rfl: CRANBERRY^ ^Disp: ^Rfl: collagen, bovine, 100 % powd^Apply to affected area.^Disp: ^Rfl: Insulin [place], Disposable, (EASY TOUCH) 31 gauge x 3/16^Use [...] virtual appointment or schedule an appointment with [facility]. - Follow-up with your PCP in 3-5 days if symptoms have not improved or sooner if symptoms worsen - Discussed red flags and need for immediate medical evaluation if any occur. - Discussed supportive care treatment with fluids, rest and analgesia. - Discussed expected course of illness Kaci Savage APRN.INTERMEDIATE DESIGNER documented in this encounter [facility] 05-15-2022 Miscellaneous Notes PATIENT NOTIFIED OF SAME. [...] Jaqueline Jones RN documented in this encounter [facility] 05-02-2022 History of Presen t illness Narrative [...] daily. For 30 days^Disp: ^Rfl: multivitamin-folic acid-biotin (WRKK-GKKP-NAUHA, QM-OY-EFDUXD,) 400-2,000 mcg tab^Take by mouth.^Disp: ^Rfl: CRANBERRY^ ^Disp: ^Rfl: collagen, bovine, 100 % powd^Apply to affected area.^Disp: ^Rfl: insulin glargine (LANTUS SOLOSTAR U-100 INSULIN) 100 unit/mL (3 mL)^Inject 18 Units subcutaneously daily at bedtime. (Dr. Genny funes)^Disp: ^Rfl: (Patient taking differently: Inject 20 Units subcutaneously daily at bedtime. (Dr. 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 Dada Rodríguez. Mild cataract in L eye- no need for cataract surgery at this time. Continue to follow up the cataract. 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 At this time, we anticipate that [...] assistance with chest tube to [facility]. Return to OPD on Sunday11/18/14 for [...] Osteoporosis Less than or equal to -2.5 Acidity Tester: ABHILASH Transcribe Date/Time: Apr 03 2022 12:29P Dictated by : JORDYN WOLF MD This examination was interpreted and the report reviewed and electronically signed by: JORDYN WOLF MD on Apr 03 2022 12:29PM EST Results-Findings * * *Final Report* * * DATE OF EXAM: Apr 03 2022 9:58AM WRB 0804 - BD DXA - AXIAL SKELETON [...] activity was identified. 05/02/2022 by Clarence Berry APRN.INSPECTOR OPEN DIE - LORAZEPAM 1 MG TABLET 3. Encounter for immunization - ICD9: V03.89, ICD10: Z23 - INFLUENZA SEASONAL QUADRIVALENT HIGH DOSE AGE 65+ Clarence Berry APRN.CNS Medical Decision Making: Problems: Low: Acute, uncomplicated illness or injury Data: Independent interpretation of test from other physician/QHCP Risk: Moderate: Drug management Medical Decision Making Level: 4 - Moderate documented in this encounter [facility] 05-02-2022 Instructions Clarence Berry APRN.INSPECTOR OPEN DIE - 05/02/2022 12:25 PM EDT Check with your insurance regarding coverage of prolia or reclast for osteoporosis documented in this encounter [facility] 04-19-2022 Miscellaneous Notes Spoke with pt and information listed below given. Pt verbalizes understanding. Results were given. Pt requested an apt to discuss medication options. Pt requested a copy of report and results be mailed to her. Done. Chelsy Valverde LPN See my result note Pt calling for Bone Density results. Please advise pt. Chelsy Valverde LPN documented in this encounter [facility] 04-03-2022 History of Presen t illness Narrative [...] 2022 9:30 AM documented in this encounter [facility] 03-31-2022 Instructions Alicia Blount MD - 03/31/2022 [...] usual activities immediately. documented in this encounter [facility] 03-31-2022 History of Presen t illness Narrative This note was created using NXE. 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 Dada Rodríguez. Mild cataract in L eye- no need for cataract surgery at this time. Continue to follow up the cataract. 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 At this time, we anticipate that [...] assistance with chest tube to [facility]. Return to OPD on Sunday11/18/14 for [...] once daily. For 30 days multivitamin-folic acid-biotin (LCQG-BGGK-WFDIP, VX-AQ-ZABDVL,) 400-2,000 mcg tab Take by mouth. CRANBERRY [...] 1 tablet by mouth once daily. Insulin [place], Disposable, (EASY TOUCH) 31 gauge x 3/16 [...] Alicia Blount MD documented in this encounter [facility] 01-30-2022 Instructions Anu Pablo PA-C - 01/30/2022 [...] or other healthcare professional such as an animal attendants and trainers may be all that is necessary to [...] has gone away. documented in this encounter [facility] 01-30-2022 History of Presen t illness Narrative [...] esophagus C. difficile diarrhea 10/18/2011 Cataract 04/17/2013 [facility], Dr. Dada Rodríguez. Mild cataract in L eye- no need for cataract surgery at this time. Continue to follow up the cataract. 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 At this time, we anticipate that [...] Iodine, Lansoprazole, Macrobid [Nitrofurantoin Monohyd/M-Cryst], Metformin, Neosporin [Qfhshifg-Gqeklzmnnp-Dcbdmnplb], Protonix [Pantoprazole], Relafen [Nabumetone], Shrimp, and Actos [...] once daily. For 30 days multivitamin-folic acid-biotin (DEUB-XOBO-GAYWD, IW-YT-MJEZOB,) 400-2,000 mcg tab Take by mouth. CRANBERRY [...] 1 tablet by mouth once daily. Insulin [place], Disposable, (EASY TOUCH) 31 gauge x 3/16 [...] by mouth twice daily. Miscellaneous [facility] [employer] (E08.40, Z79.4) Diabetes mellitus due [...] Anu Pablo PA-C documented in this encounter [facility] 01-13-2022 Miscellaneous Notes Pt called and is [...] Coby Reynolds RN documented in this encounter [facility] 01-08-2022 Miscellaneous Notes Okayed Patient has been identified by name and date of : Yes Last office visit in this department: 12-02 RX INSTRUCTIONS: Patient aware RX will be sent to pharmacy. No need to notify patient. Patient phones requesting refills as follows: No medications selected for refill. Please review and advise. Meche James documented in this encounter [facility] 01-02-2022 Miscellaneous Notes Patient has been identified [...] advise. Clara Richmond documented in this encounter [facility] 12-21-2021 Nurse Note 0907 pt to ASCU, up to BR, incontinent of stool. Jennifer care and new brief given. Pt ambulates with assist. updated & @ BS. documented in this encounter [facility] 12-21-2021 History and physical note CHIEF COMPLAINT: [...] for internal providers or letter via the [employer] for external providers. [facility]ory [...] letter in the mail from insurance company [employer] no longer covered. Patient reports in the [...] esophagus C. difficile diarrhea 10/18/2011 Cataract 04/17/2013 [facility], Dr. Dada Rodríguez. Mild cataract in L eye- no need for cataract surgery at this time. Continue to follow up the cataract. 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 At this time, we anticipate that [...] assistance with chest tube to [facility]. Return to OPD on Sunday11/18/14 for [...] once daily. For 30 days multivitamin-folic acid-biotin (DWVL-KYBL-PCDAH, DV-FD-BKLJLF,) 400-2,000 mcg tab Take by mouth. collagen, [...] tablet by mouth once daily. CRANBERRY Insulin [place], Disposable, (EASY TOUCH) 31 gauge x 3/16 [...] twice daily. (Dr Don) Miscellaneous [facility] [employer] (E08.40, Z79.4) Diabetes mellitus due [...] Education Completed: Not specified Marital Status: to [facility] with 4 children SOCIAL HISTORY Social [...] with more than 50% of the total wgle-tz-lokz time of the visit in counseling / coordination of care. I have confirmed and edited as necessary, the PFSH and ROS obtained by others. June Limon APRN.INTERMEDIATE DESIGNER UPDATED HISTORY AND PHYSICAL EXAMINATION SERVICE DATE: [...] TIME: 7:10 AM documented in this encounter [facility] 12-13-2021 Miscellaneous Notes Patient was updated, seen [...] Coby Reynolds RN documented in this encounter [facility] 12-01-2021 Miscellaneous Notes PDMP website checked and validated. All prescriptions have been APPROPRIATELY filled. No suspicious activity was identified. 12/01/2021 by Clarence Berry APRN.INSPECTOR OPEN DIE Last seen pcp 11/22/21. Next 03/31/22. Patient [...] Libertad Burdick Pss documented in this encounter [facility] 11-22-2021 Instructions Alicia Blount MD - 11/22/2021 1:28 PM EDT Probiotics: Align, Culturelle, Florastor documented in this encounter [facility] 11-22-2021 History of Presen t illness Narrative This note was created using NoteWriter. Subjective Ana Ivory is a 81 year [...] Covid Booster #2 Swelling even with stockings. Franklin better but still would get tight. No prior water pills. Had episode of leaking when jeans caused thinned area and legs swollen. On SSI now. Reflux noted. Has adjustable bed. 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 Dada Rodríguez. Mild cataract in L eye- no need for cataract surgery at this time. Continue to follow up the cataract. 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 At this time, we anticipate that [...] assistance with chest tube to [facility]. Return to OPD on Sunday11/18/14 for [...] dinner. Adjust as directed. (Dr. Genny Munguia refjere). TOVIAZ 4 mg Tb24 extended release tablet Take 4 mg by mouth once daily. For 30 days multivitamin-folic acid-biotin (JZHJ-HHVA-KUADU, SD-OP-ZEAPQU,) 400-2,000 mcg tab Take by mouth. collagen, bovine, 100 % powd Apply to affected area. atorvastatin (LIPITOR) 20 mg tablet Take 1 tablet by mouth once daily. insulin glargine (LANTUS SOLOSTAR U-100 INSULIN) 100 unit/mL (3 mL) Inject 18 Units subcutaneously daily at bedtime. (Dr. Genny Munguia refills) sertraline (ZOLOFT) 50 mg tablet Take 1 tablet by mouth once daily. Insulin [place], Disposable, (EASY TOUCH) 31 gauge x 3/16 [...] Reported on 09/19/2021 ) Miscellaneous [facility] [employer] (E08.40, Z79.4) Diabetes mellitus due [...] Alicia Blount MD documented in this encounter [facility] 06-03-2021 History of Presen t illness Narrative [...] 2021 12:54 PM documented in this encounter [facility] 11-14-2014 History of Past i llness Narrative [...] - Continue Lovenox 40mg daily SC - SCD/OKMAR - Encourage continued ambulation . DISPOSITION AND FOLLOW-UP 11/11/20142016 Overview: [facility] is and lives in [place], [place]. At this time, we anticipate that [...] reflux 10/08/2014 10/08/2014 Cataract 04/17/2013 09/15/2016 Overview: [facility], Dr. Dada Rodríguez. Mild cataract in L [...] of this encounter (statuses as of 12/01/2021) [facility] History of Past illness Narrative* Problem Noted [...] Overview: Ana Ivory is and lives in [place], [place]. At this time, we anticipate that [...] assistance with chest tube to [facility]. Return to OPD on Sunday11/18/[address] removal . Esophageal reflux 10/08/2014 10/08/2014 Cataract 04/17/2013 09/15/2016 Overview: [facility], Dr. Dada Rodríguez. Mild cataract in L [...] of this encounter (statuses as of 12/13/2021) [facility] History of Past illness Narrative* Problem Noted [...] Overview: Ana Ivory is and lives in [place], [place]. At this time, we anticipate that [...] assistance with chest tube to [facility]. Return to OPD on Sunday11/18/[address] removal . Esophageal reflux 10/08/2014 10/08/2014 Cataract 04/17/2013 09/15/2016 Overview: [facility], Dr. Dada Rodríguez. Mild cataract in [...] of this encounter (statuses as of 12/22/2021) [facility] History of Past illness Narrative* Problem Noted [...] Overview: Ana Ivory is and lives in [place], [place]. At this time, we anticipate that [...] care [facility]. Return to [facility]PD on Sunday11/18/[address] removal . Esophageal reflux 10/08/2014 10/08/2014 Cataract 04/17/2013 09/15/2016 Overview: [facility], Dr. Dada Rodríguez. Mild cataract in L [...] of this encounter (statuses as of 01/02/2022) [facility] of [facility] illness Narrative* Problem Noted [...] Overview: nAa Ivory is and lives in [place], [place]. At this time, we anticipate that [...] reflux 10/08/2014 10/08/2014 Cataract 04/17/2013 09/15/2016 Overview: [facility], Dr. Dada Rodríguez. Mild cataract in L [...] of this encounter (statuses as of 01/08/2022) [facility] of [facility] illness Narrative* Problem Noted [...] Overview: Ana Ivory is and lives in [place], [place]. At this time, we anticipate that [...] reflux 10/08/2014 10/08/2014 Cataract 04/17/2013 09/15/2016 Overview: [facility], Dr. Dada Rodríguez. Mild cataract in [...] of this encounter (statuses as of 01/13/2022) [facility] of Past illness Narrative* Problem Noted [...] Overview: Ana Ivory is and lives in [place]. At this time, we anticipate that [...] [facility]. Return to [facility]PD on Sunday11/18/[address] removal . Esophageal reflux 10/08/2014 10/08/2014 Cataract 04/17/2013 09/15/2016 Overview: [facility], Dr. Dada Rodríguez. Mild cataract in L [...] of this encounter (statuses as of 01/30/2022) [facility] of [facility] Narrative* Problem Noted [...] Overview: Ana Ivory is and lives in [place], [place]. At this time, we anticipate that [...] reflux 10/08/2014 10/08/2014 Cataract 04/17/2013 09/15/2016 Overview: [facility], Dr. Dada Rodríguez. Mild cataract in L [...] of this encounter (statuses as of 02/05/2022) [facility] of [facility] illness Narrative* Problem Noted [...] Overview: Ana Ivory is and lives in [place]. At this time, we anticipate that [...] assistance with chest tube to [facility]. Return to OPD on Sunday11/18/[address] removal . Esophageal reflux 10/08/2014 10/08/2014 Cataract 04/17/2013 09/15/2016 Overview: [facility], Dr. Dada Rodríguez. Mild cataract in L [...] of this encounter (statuses as of 04/04/2022) [facility] of [facility] illness Narrative* Problem Noted Date Resolved Date Hypoxia 11/14/2014 09/15/2016 Overview: [facility] study done 4/4/15: Home oxygen needed (2 L/min via nasal [...] Overview: Ana Ivory is and lives in [place], [place]. At this time, we anticipate that [...] care [facility]. Return to [facility]PD on Sunday11/18/[address] removal . Esophageal reflux 10/08/2014 10/08/2014 Cataract 04/17/2013 09/15/2016 Overview: [facility], Dr. Dada Rodríguez. Mild cataract in L [...] of this encounter (statuses as of 04/19/2022) [facility] of [facility] illness Narrative* Problem Noted [...] Overview: Ana Ivory is and lives in [place]. At this time, we anticipate that [...] assistance with chest tube to [facility]. Return to OPD on Sunday11/18/[address] removal . Esophageal reflux 10/08/2014 10/08/2014 Cataract 04/17/2013 09/15/2016 Overview: [facility], Dr. Dada Rodríguez. Mild cataract in [...] of this encounter (statuses as of 05/02/2022) [facility] of [facility] illness Narrative* Problem Noted [...] Overview: Ana Ivory is and lives in [place]. At this time, we anticipate that [...] reflux 10/08/2014 10/08/2014 Cataract 04/17/2013 09/15/2016 Overview: [facility], Dr. Dada Rodríguez. Mild cataract in L [...] of this encounter (statuses as of 05/15/2022) [facility] History of Past illness Narrative* Problem Noted [...] Overview: Ana Ivory is and lives in [place], [place]. At this time, we anticipate that [...] assistance with chest tube to [facility]. Return to OPD on Sunday11/18/[address] removal . Esophageal reflux 10/08/2014 10/08/2014 Cataract 04/17/2013 09/15/2016 Overview: [facility], Dr. Dada Rodríguez. Mild cataract in L [...] of this encounter (statuses as of 05/16/2022) [facility] of [facility] illness Narrative* Problem Noted [...] Overview: Ana Ivory is and lives in [place], [place]. At this time, we anticipate that [...] reflux 10/08/2014 10/08/2014 Cataract 04/17/2013 09/15/2016 Overview: [facility], Dr. Dada Rodríguez. Mild cataract in L [...] of this encounter (statuses as of 05/17/2022) [facility] of [facility] illness Narrative* Problem Noted [...] Overview: Ana Ivory is and lives in [place]. At this time, we anticipate that [...] assistance with chest tube to [facility]. Return to OPD on Sunday11/18/[address] removal . Esophageal reflux 10/08/2014 10/08/2014 Cataract 04/17/2013 09/15/2016 Overview: [facility], Dr. Dada Rodríguez. Mild cataract in [...] of this encounter (statuses as of 05/30/2022) [facility] of [facility] illness Narrative* Problem Noted [...] Overview: Ana Ivory is and lives in [place]. At this time, we anticipate that [...] care [facility]. Return to OPD on Sunday11/18/[address] removal . Esophageal reflux 10/08/2014 10/08/2014 Cataract 04/17/2013 09/15/2016 Overview: [facility], Dr. Dada Rodríguez. Mild cataract in L [...] of this encounter (statuses as of 05/31/2022) [facility] of [facility] illness Narrative* Problem Noted [...] Overview: Ana Ivory is and lives in [place]. At this time, we anticipate that [...] assistance with chest tube to [facility]. Return to OPD on Sunday11/18/[address] removal . Esophageal reflux 10/08/2014 10/08/2014 Cataract 04/17/2013 09/15/2016 Overview: [facility], Dr. Dada Rodríguez. Mild cataract in L [...] of this encounter (statuses as of 06/16/2022) [facility] of [facility] illness Narrative* Problem Noted [...] Overview: Ana Ivory is and lives in [place]. At this time, we anticipate that [...] care for assistance with [facility] to [facility]. Return to OPD on Sunday11/18/[address] removal . Esophageal reflux 10/08/2014 10/08/2014 Cataract 04/17/2013 09/15/2016 Overview: [facility], Dr. Dada Rodríguez. Mild cataract in L [...] of this encounter (statuses as of 06/16/2022) [facility] of [facility] illness Narrative* Problem Noted [...] Overview: Ana Ivory is and lives in [place]. At this time, we anticipate that [...] care for assistance with [facility] to [facility]. Return to OPD on Sunday11/18/[address] removal . Esophageal reflux 10/08/2014 10/08/2014 Cataract 04/17/2013 09/15/2016 Overview: [facility], Dr. Dada Rodríguez. Mild cataract in L [...] of this encounter (statuses as of 06/28/2022) [facility] illness Narrative* Problem Noted [...] Overview: Ana Ivory is and lives in [place]. At this time, we anticipate that [...] reflux 10/08/2014 10/08/2014 Cataract 04/17/2013 09/15/2016 Overview: [facility], Dr. Dada Rodríguez. Mild cataract in L [...] of this encounter (statuses as of 08/02/2022) [facility] Narrative* Problem Noted [...] Overview: Ana Ivory is and lives in [place]. At this time, we anticipate that [...] reflux 10/08/2014 10/08/2014 Cataract 04/17/2013 09/15/2016 Overview: [facility], Dr. Dada Rodríguez. Mild cataract in L [...] of this encounter (statuses as of 08/23/2022) [facility] of [facility] illness Narrative* Problem Noted [...] Overview: Ana Ivory is and lives in [place]. At this time, we anticipate that [...] care for assistance [facility]. Return to [facility]PD on Sunday11/18/[address] removal . Esophageal reflux 10/08/2014 10/08/2014 Cataract 04/17/2013 09/15/2016 Overview: [facility], Dr. Dada Rodríguez. Mild cataract in L [...] of this encounter (statuses as of 09/30/2022) [facility] of [facility] illness Narrative* Problem Noted [...] Overview: Ana Ivory is and lives in [place]. At this time, we anticipate that [...] care for assistance with [facility]. Return to [facility]PD on Sunday11/18/[address] removal . Esophageal reflux 10/08/2014 10/08/2014 Cataract 04/17/2013 09/15/2016 Overview: [facility], Dr. Dada Rodríguez. Mild cataract in L [...] of this encounter (statuses as of 10/10/2022) [facility] Narrative* Problem Noted [...] Overview: Ana Ivory is and lives in [place]. At this time, we anticipate that [...] reflux 10/08/2014 10/08/2014 Cataract 04/17/2013 09/15/2016 Overview: [facility], Dr. Dada Rodríguez. Mild cataract in L [...] of this encounter (statuses as of 10/12/2022) [facility] of [facility] illness Narrative* Problem Noted [...] Overview: Ana Ivory is and lives in [place]. At this time, we anticipate that [...] assistance with chest tube to [facility]. Return to OPD on Sunday11/18/[address] removal . Esophageal reflux 10/08/2014 10/08/2014 Cataract 04/17/2013 09/15/2016 Overview: [facility], Dr. Dada Rodríguez. Mild cataract in L [...] of this encounter (statuses as of 10/18/2022) [facility] of [facility] illness Narrative* Problem Noted [...] Overview: Ana Ivory is and lives in [place]. At this time, we anticipate that [...] assistance with chest tube to [facility]. Return to OPD on Sunday11/18/[address] removal . Esophageal reflux 10/08/2014 10/08/2014 Cataract 04/17/2013 09/15/2016 Overview: [facility], Dr. Dada Rodríguez. Mild cataract in L [...] of this encounter (statuses as of 01/25/2023) [facility] of [facility] illness Narrative* Problem Noted [...] Overview: Ana Ivory is and lives in [place]. At this time, we anticipate that [...] reflux 10/08/2014 10/08/2014 Cataract 04/17/2013 09/15/2016 Overview: [facility], Dr. Dada Rodríguez. Mild cataract in [...] of this encounter (statuses as of 02/08/2023) [facility] of [facility] illness Narrative* Problem Noted [...] Overview: Ana Ivory is and lives in [place]. At this time, we anticipate that [...] assistance with chest tube to [facility]. Return to OPD on Sunday11/18/[address] removal . Esophageal reflux 10/08/2014 10/08/2014 Cataract 04/17/2013 09/15/2016 Overview: [facility], Dr. Dada Rodríguez. Mild cataract in L [...] of this encounter (statuses as of 02/12/2023) [facility] of [facility] illness Narrative* Problem Noted [...] Overview: Ana Ivory is and lives in [place]. At this time, we anticipate that [...] care for assistance [facility]. Return to [facility]PD on Sunday11/18/[address] removal . Esophageal reflux 10/08/2014 10/08/2014 Cataract 04/17/2013 09/15/2016 Overview: [facility], Dr. Dada Rodríguez. Mild cataract in L [...] of this encounter (statuses as of 04/06/2023) [facility] of [facility] illness Narrative* Problem Noted [...] Overview: Ana Ivory is and lives in [place]. At this time, we anticipate that [...] assistance with chest tube to [facility]. Return to OPD on Sunday11/18/[address] removal . Esophageal reflux 10/08/2014 10/08/2014 Cataract 04/17/2013 09/15/2016 Overview: [facility], Dr. Dada Rodríguez. Mild cataract in [...] of this encounter (statuses as of 04/08/2023) [facility] Narrative* Problem Noted [...] Overview: Ana Ivory is and lives in [place]. At this time, we anticipate that [...] reflux 10/08/2014 10/08/2014 Cataract 04/17/2013 09/15/2016 Overview: [facility], Dr. Dada Rodríguez. Mild cataract in L [...] of this encounter (statuses as of 06/01/2023) [facility] of [facility] illness Narrative* Problem Noted [...] Overview: Ana Ivory is and lives in [place]. At this time, we anticipate that [...] assistance with chest tube to [facility]. Return to OPD on Sunday11/18/[address] . Esophageal reflux 10/08/2014 10/08/2014 Cataract 04/17/2013 09/15/2016 Overview: [facility], Dr. Dada Rodríguez. Mild cataract in L [...] of this encounter (statuses as of 06/05/2023) [facility] of [facility] Narrative* Problem Noted [...] Overview: Ana Ivory is and lives in [place]. At this time, we anticipate that [...] assistance with chest tube to [facility]. Return to OPD on Sunday11/18/[address] . Esophageal reflux 10/08/2014 10/08/2014 Cataract 04/17/2013 09/15/2016 Overview: [facility], Dr. Dada Rodríguez. Mild cataract in L [...] of this encounter (statuses as of 06/06/2023) [facility] Narrative* Problem Noted [...] Overview: Ana Ivory is and lives in [place]. At this time, we anticipate that [...] reflux 10/08/2014 10/08/2014 Cataract 04/17/2013 09/15/2016 Overview: [facility], Dr. Dada Rodríguez. Mild cataract in [...] of this encounter (statuses as of 06/07/2023) [facility] of [facility] illness Narrative* Problem Noted [...] Overview: Ana Ivory is and lives in [place]. At this time, we anticipate that [...] care for [facility]. Return to [facility]PD on Sunday11/18/[address] . Esophageal reflux 10/08/2014 10/08/2014 Cataract 04/17/2013 09/15/2016 Overview: [facility], Dr. Dada Rodríguez. Mild cataract in L [...] of this encounter (statuses as of 06/17/2023) [facility] Narrative* Problem Noted [...] Overview: Ana Ivory is and lives in [place]. At this time, we anticipate that [...] care for assistance [facility]. Return to OPD on Sunday11/18/[address] . Esophageal reflux 10/08/2014 10/08/2014 Cataract 04/17/2013 09/15/2016 Overview: [facility], Dr. Dada Rodríguez. Mild cataract in L [...] of this encounter (statuses as of 06/29/2023) [facility] Narrative* Problem Noted [...] Overview: Ana Ivory is and lives in [place]. At this time, we anticipate that [...] reflux 10/08/2014 10/08/2014 Cataract 04/17/2013 09/15/2016 Overview: [facility], Dr. Dada Rodríguez. Mild cataract in L [...] of this encounter (statuses as of 07/03/2023) [facility] Narrative* Problem Noted [...] Overview: Ana Ivory is and lives in [place]. At this time, we anticipate that [...] assistance with chest tube to [facility]. Return to OPD on Sunday11/18/[address] . Esophageal reflux 10/08/2014 10/08/2014 Cataract 04/17/2013 09/15/2016 Overview: [facility], Dr. Dada Rodríguez. Mild cataract in L [...] of this encounter (statuses as of 07/21/2023) [facility] Narrative* Problem Noted [...] Overview: Ana Ivory is and lives in [place]. At this time, we anticipate that [...] reflux 10/08/2014 10/08/2014 Cataract 04/17/2013 09/15/2016 Overview: [facility], Dr. Dada Rodríguez. Mild cataract in L [...] of this encounter (statuses as of 09/28/2023) [facility] Narrative* Problem Noted [...] Overview: Ana Ivory is and lives in [place]. At this time, we anticipate that [...] assistance with chest tube to [facility]. Return to OPD on Sunday11/18/[address] . Esophageal reflux 10/08/2014 10/08/2014 Cataract 04/17/2013 09/15/2016 Overview: [facility], Dr. Dada Rodríguez. Mild cataract in L [...] of this encounter (statuses as of 11/05/2023) [facility] note* Diagnosis Anxiety Anxiety state, unspecified [facility]* Diagnosis Chronic gastritis without bleeding, unspecified gastritis type Esophagitis Esophagitis, unspecified [facility] this [facility]* Diagnosis Ankle injury, initial encounter- Primary documented in this encounter [facility]* Diagnosis Urinary tract infection without hematuria, [...] whether esophagitis present documented [facility] this encounter [facility]* Diagnosis Asymptomatic postmenopausal status documented in this encounter [facility]* Diagnosis Osteoporosis, unspecified osteoporosis type, unspecified pathological fracture presence- Primary Anxiety Anxiety state, unspecified Encounter for immunization Need for other specified prophylactic vaccination against single bacterial disease documented [facility] encounter [facility]* Diagnosis Suspected COVID-19 virus infection- Primary [facility] Diagnosis Vitamin D deficiency- Primary Unspecified [...] Asymptomatic postmenopausal status [facility] Diagnosis Essential hypertension Unspecified essential hypertension [facility] Diagnosis 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, with long-term current use of insulin (HCC) [facility]* Diagnosis Essential hypertension- Primary Unspecified essential hypertension 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, with long-term current use of insulin (HCC) Vitamin D deficiency Unspecified vitamin D deficiency Osteoporosis, unspecified Primary hypertension Unspecified essential hypertension [facility]* Diagnosis Onset Date Resolution Status 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 disease acut e Bronchiectasis chronic S/P lobectomy of lung resolv ed History of ischemic stroke a cute Overweight (BMI 25.0-29.9) a cute Diabetes 1.5, managed as type 1 chronic Essential (primary) hypertension chronic Polyneuropathy chronic Dyspnea acute Bronchiectasis [facility] Work Phone: Evaluation note* Diagnosis Onset Date Resolution Status History of ischemic stroke a cute Overweight (BMI 25.0-29.9) a cute Diabetes 1.5, managed as type 1 chronic Essential (primary) hypertension chronic Polyneuropathy chronic Dyspnea acute Bronchiectasis [facility] Work Phone: Evaluation note* Diagnosis 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, with long-term current use of insulin (HCC)- Primary Contusion of right foot, initial encounter Contusion of sabianist region, initial encounter Injury of coccyx, initial encounter Facial pain Headache Jaw pain Anxiety Anxiety state, unspecified Vitamin D deficiency Unspecified vitamin D deficiency [facility] Intractable acute post-traumatic headache- Primary Acute post-traumatic headache Contusion of right foot, initial encounter Contusion of sabianist region, initial encounter Injury of coccyx, initial encounter Facial pain Headache Jaw pain Injury of head, subsequent encounter [facility] Diagnosis Intractable acute post-traumatic headache- Primary Acute post-traumatic headache Contusion of right foot, initial encounter Contusion of sabianist region, initial encounter Injury of coccyx, initial encounter Facial pain Headache Jaw pain [facility] Diagnosis 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, with long-term current use of insulin (HCC)- Primary Hyperlipidemia, unspecified hyperlipidemia type Vitamin D deficiency Unspecified vitamin D deficiency [facility] Anxiety Anxiety state, unspecified [facility] Diagnosis Viral URI- Primary Acute upper respiratory infections of unspecified site Right ear pain Otalgia, unspecified [facility] Diagnosis Bronchiectasis without complication (HCC)- Primary Bronchiectasis without acute exacerbation Carcinoid bronchial adenoma, 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[facility]) Encounter for immunization Need for other specified prophylactic vaccination against single bacterial disease 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 Essential hypertension Unspecified essential hypertension Anxiety Anxiety state, unspecified [facility]* Diagnosis 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 Gonzales's esophagus [facility] encounter [facility]* Diagnosis 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 Gonzales's esophagus [facility]* Diagnosis Onset Date Resolution Status Diabetes 1.5, managed as type 1 chronic Essential (primary) hypertension chronic Overweight (BMI 25.0-29.9) c hronic Polyneuropathy chronic Bronchiectasis chronic Fatigue noneactive 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 disease 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 Polyneuropathy chronic History of ischemic stroke r esolved Sepsis acute UTI (urinary tract infection) acute Diabetes 1.5, managed as type 1 chronic [facility] Work Phone: Evaluation note* Diagnosis Injury of head, subsequent encounter [facility] Diagnosis Onset Date Resolution Status Diabetes 1.5, managed as type 1 chronic Essential (primary) hypertension chronic Overweight (BMI 25.0-29.9) c hronic Polyneuropathy chronic Bronchiectasis chronic Fatigue noneactive 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 disease 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 Polyneuropathy chronic History of ischemic stroke [...] Sepsis resolved UTI (urinary tract infection) resolved [facility] Work Phone: Evaluation note* Diagnosis Debility- Primary Debility, unspecified Diabetes 1.5, managed as type 1 (HCC) Type II or unspecified type diabetes mellitus without mention of complication, not stated as uncontrolled Sepsis, due to unspecified organism, unspecified whether acute organ dysfunction present ([facility]) Pain in left ta [facility] Diagnosis Anxiety Anxiety state, unspecified [facility] Diagnosis Onset Date Resolution Status Fatigue noneactive 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 disease 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 Polyneuropathy chronic History of ischemic stroke [...] tract infection) resolved Left lumbar radiculopathy ac ramona Diabetes 1.5, managed as type 1 chronic Essential (primary) hypertension chronic Polyneuropathy [facility] Work Phone: Evaluation note* Diagnosis 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, with long-term current use of insulin (HCC)- Primary Essential hypertension Unspecified essential hypertension Encounter for long-term current use of medication Vitamin D deficiency Unspecified vitamin D deficiency Hyperlipidemia, unspecified hyperlipidemia type [facility] Diagnosis Diabetes mellitus due to [...] Abnormality of gait [facility] Urinary frequency- Primary [facility] Anxiety Anxiety state, unspecified [facility] Diagnosis Sinobronchitis- Primary Unspecified sinusitis (chronic) Acute cough [facility]* Diagnosis SOB (shortness of breath)- Primary Shortness of breath [facility]* Diagnosis Diabetes 1.5, managed as type 1 (HCC)- Primary Type II or unspecified type diabetes mellitus without mention of complication, not stated as uncontrolled Screening for diabetic retinopathy Screening for other eye conditions Chest pain, unspecified type Lightheadedness Dizziness and giddiness Syncope, unspecified syncope type [facility] Diagnosis 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, 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 Gastroesophageal reflux disease with esophagitis [facility] Diagnosis Diabetes mellitus due to [...] Pain in limb [facility] Diagnosis Diabetes mellitus due to [...] injury, initial encounter [facility] Diagnosis Diabetes mellitus due to [...] novel coronavirus infection [facility] Diagnosis Diabetes mellitus due to [...] Swelling of limb [facility] Diagnosis Diabetes mellitus due to [...] Chronic cough Cough [facility] Diagnosis Diabetes mellitus due to underlying [...] side (HCC)- Primary documented in this encounter [facility] for referral (narrative)* Diagnostic Procedure Only (Urgent) - Closed Specialty Diagnoses / Procedures Referred By Maddison peters Referred To Contact XR IMAGING Diagnoses Ankle injury, initial encounter Procedures XR ANKLE GENERAL 3V AP/LAT/OBL RIGHT RADEX ANKLE COMPLETE MINIMUM 3 VIEWS Anu Pablo PA-C [address] [place] [address] Xr Imaging Referral ID Status Reason Start Date Expiration Date V isits Requested Visits Authorized [id number] Closed Auto-Generate d Referral 01/30/2022 03/01/2023 1 1 [facility] for referral (narrative)* Outpatient Procedure (Routine) - Authorized Specialty Diagnoses / Procedures Referred By Maddison peters Referred To Contact [facility] 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 Procedures EGD DIAGNOSTIC ESOPHAGOGASTRODUODENOSC OPY TRANSORAL DIAGNOSTIC Radha Balderrama MD [address] [place] [address] [facility] [place] [address] [address] Referral ID Status Reason Start Date Expiration Date Visits Requested Visits Authorized [id number] Authorized Auto-Generat ed Referral 06/04/2024 1 1 [facility] for referral (narrative)* Outpatient Procedure (Routine) - Closed Specialty Diagnoses / Procedures Referred By Contac t Referred To Contact [facility] 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 Procedures EGD DIAGNOSTIC ESOPHAGOGASTRODUODENOSC OPY TRANSORAL DIAGNOSTIC Radha Balderrama MD [address] [place] [address] [facility] [place] [address] [place] [address] Referral ID Status Reason Start Date Expiration Date V isits Requested Visits Authorized [id number] Closed Auto-Generate d Referral 06/04/2023 06/04/2024 1 1 [facility] for referral (narrative)* Outpatient Procedure (Routine) - Authorized Specialty Diagnoses / Procedures Referred By Contac t Referred To Contact [facility] Diagnoses Lightheadedness Syncope, unspecified syncope type Procedures US CAROTID ARTERIES [facility] DUPLEX SCAN EXTRACRANIAL ART COMPL BI STUDY Clarence Berry APRN.INSPECTOR OPEN DIE [address] [place] [address] [facility] [place] [address] [place] [address] Referral ID Status Reason Start Date Expiration Date Visits Requested Visits Authorized [id number] Authorized Auto-Generat ed Referral 01/31/2024 01/30/2025 1 1 * Diagnostic Procedure Only (Routine) - Authorized Specialty Diagnoses / Procedures Referred By Contac t Referred To Contact US IMAGING Diagnoses Lightheadedness Syncope, unspecified syncope type Procedures US CAROTID BILATERAL Clarence Berry APRN.INSPECTOR OPEN DIE [address] [place] [address] [place] [address] Referral ID Status Reason Start Date Expiration Date Visits Requested Visits Authorized [id number] Authorized Auto-Generat ed Referral 01/31/2024 03/01/2025 1 1 * Outpatient Procedure (Routine) - Pending Review Specialty Diagnoses / Procedures Referred By Contac t Referred To Contact [facility] [place] Diagnoses Chest pain, unspecified type Procedures ECG COMPLETE ECG ROUTINE ECG W/LEAST 12 LDS W/I&R Clarence Berry APRN.INSPECTOR OPEN DIE [address] [place] [address] [facility] [place] [address] [place] [id number] Referral ID Status Reason Start Date Expiration Date Visits Requested Visits Authorized [id number] Pending Review Auto-Generat ed Referral 01/31/2024 01/30/2025 1 1 * Consult, Test, Treat (Routine) - Authorized Specialty Diagnoses / Procedures Referred By Contac t Referred To Contact Cardiology Diagnoses Chest pain, unspecified type Procedures CONSULT TO CARDIOLOGY OFFICE/OUTPATIENT [facility] 60 MINUTES Clarence Berry APRN.INSPECTOR OPEN DIE [address] [place] [address] Referral ID Status Reason Start Date Expiration Date Visits Requested Visits Authorized [id number] Authorized PCP Requested Referral 01/31/2024 01/30/2025 1 1 * Outpatient Procedure (Routine) - Authorized Specialty Diagnoses / Procedures Referred By Contac t Referred To Contact [facility] [place] Diagnoses Chest pain, unspecified type Procedures STRESS ECHO TREADMILL ECHO TTHRC R-T 2D W/WO M-MODE COMPLETE REST&ST Clarence Berry APRN.INSPECTOR OPEN DIE [address] [place] [address] [facility] [place] [address] [place] [address] Referral ID Status Reason Start Date Expiration Date Visits Requested Visits Authorized [id number] Authorized Auto-Generat ed Referral 01/31/2024 01/30/2025 1 1 * Consult, Test, Treat (Routine) - Authorized Specialty Diagnoses / Procedures Referred By Contac t Referred To Contact Ophthalmology Diagnoses Diabetes 1.5, managed as type 1 (HCC) Screening for diabetic retinopathy Procedures CONSULT TO OPHTHALMOLOGY OFFICE/OUTPATIENT [facility] 60 MINUTES Clarence Berry APRN.CNS [address] [place] [address] Referral ID Status Reason Start Date Expiration Date Visits Requested Visits Authorized [id number] Authorized PCP Requested Referral 01/31/2024 01/30/2025 1 1 [facility] for referral (narrative)* Diagnostic Procedure Only (Routine) - Closed Specialty Diagnoses / Procedures [facility]erred To Contact XR IMAGING Diagnoses Foot pain, right Procedures XR FOOT GENERAL 3V AP/LAT/OBL RIGHT RADEX FOOT COMPLETE MINIMUM 3 VIEWS Crispin Cheng MD [address] [place] [address] [place] [address] Referral ID Status Reason Start Date Expiration Date V isits Requested Visits Authorized [id number] Closed Auto-Generate d Referral 12/30/2022 01/29/2024 1 1 [facility] for referral (narrative)* Diagnostic Procedure Only (Urgent) - Closed Specialty Diagnoses / Procedures Referred By Contac t Referred To Contact XR IMAGING Diagnoses Ankle injury, initial encounter Procedures XR ANKLE GENERAL 3V AP/LAT/OBL RIGHT RADEX ANKLE COMPLETE MINIMUM 3 VIEWS Anu Pablo PA-C [address] [place] [address] [place] [address] Referral ID Status Reason Start Date Expiration Date V isits Requested Visits Authorized [id number] Closed Auto-Generate d Referral 01/30/2022 03/01/2023 1 1 [facility] for visit Narrative* Auth/Cert Specialty Diagnoses / Procedures Referred By Maddison peters Referred To Contact Diagnoses History of Gonzales's esophagus [Z87.19 Procedures ESOPHAGOGASTRODUODENOSCOPY TRANSORAL DIAGNOSTIC EGD DIAGNOSTIC [GI9 [facility] [address] [place] [address] Referral ID Status Reason Start Date Expiration Date Visits Re quested Visits Authorized [id number] 1 1 [facility] for visit Narrative* Outpatient Procedure (Routine) - Closed Specialty Diagnoses / Procedures Referred By Maddison t Referred To Contact [facility] 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 Procedures EGD DIAGNOSTIC ESOPHAGOGASTRODUODENOSC OPY TRANSORAL DIAGNOSTIC Radha Balderrama MD [address] [place] [address] [facility] [place] [address] [place] [address] Referral ID Status Reason Start Date Expiration Date V isits Requested Visits Authorized [id number] Closed Auto-Generate d Referral 06/04/2023 06/04/2024 1 1 [facility] for visit Narrative* Diagnostic Procedure Only (Routine) - Closed Specialty Diagnoses / Procedures Referred By Maddison peters Referred To Contact XR IMAGING Diagnoses Foot pain, right Procedures XR FOOT GENERAL 3V AP/LAT/OBL RIGHT RADEX FOOT COMPLETE MINIMUM 3 VIEWS Crispin Cheng MD [address] [place] [address] [place] [address] Referral ID Status Reason Start Date Expiration Date V isits Requested Visits Authorized [id number] Closed Auto-Generate d Referral 12/30/2022 01/29/2024 1 1 [facility] for visit Narrative* Diagnostic Procedure Only (Urgent) - Closed Specialty Diagnoses / Procedures Referred By Maddison t Referred To Contact XR IMAGING Diagnoses Ankle injury, initial encounter Procedures XR ANKLE GENERAL 3V AP/LAT/OBL RIGHT RADEX ANKLE COMPLETE MINIMUM 3 VIEWS Anu Pablo PA-C [address] [place] [address] [place] [address] Referral ID Status Reason Start Date Expiration Date V isits Requested Visits Authorized [id number] Closed Auto-Generate d Referral 01/30/2022 03/01/2023 1 1 [facility] Advance Directives No Advanced Directives Records FoundDocuments on File Type Date Recorded Patient Life Educator Expl anation Advance Directive(s) 11/10/2021 3:53 PM [...] Documents on File Type Date Recorded Patient Life Educator Expl anation Advance Directive(s) 12/21/2021 1:29 PM [...] Documents on File Type Date Recorded Patient Life Educator Expl anation Advance Directive(s) 12/21/2021 1:29 PM [...] Documents on File Type Date Recorded Patient Life Educator Expl anation Advance Directive(s) 09/25/2008 8:05 PM Advance Directive(s) 05/05/2008 Advance Directive(s) 09/27/2006 Advance Directive Response Recorded Date/ Time Living Will Yes December 29, 2020 1 0:06am Power of Tire Setter Yes December 29, 2020 10:06am Documents on File Type Date Recorded Patient Life Educator Expl anation Advance Directive(s) 09/25/2008 8:05 PM Advance Directive(s) 05/05/2008 Advance Directive(s) 09/27/2006 Advance Directive Response Recorded Date/ Time Name of Medical Power of Tire Setter Dariel Gaviria, lilly n in law June 10, 2023 6:29pm Living Will Yes June 10 6:29pm Power of Tire Setter Yes June 10, 2023 6:29pm Advance Directive Response Recorded Date/ Time Name of Medical Power of Tire Setter Dariel Gaviria, so n in law June 10, 2023 8:53pm Name of Medical Power of Tire Setter Ayaz Ivory, June 15, 2023 3:30pm Living Will Yes June 15 3:30pm Power of Tire Setter Yes June 15, 2023 3:30pm Medications Administered Section Inactive Administered Medications - up to 3 most recent administrations Medication Order MAR Action Action Date Dose Rate Site benzocaine 20% 1 [place] (TOPEX) 1 [place], TOPICAL, DIRECTED, Starting on Sun12/21/21 at 0830, Until Sun12/21/21 at 1229, DOSING DIRECTED BY PHYSICIAN FOR PROCEDURAL SEDATION ONLY - Pharmaceutical Waste: Aerosol -, Intraprocedure Given 12/21/2021 8:07 AM EDT 1 [facility] Concerns Infection Onset Date Last Indicated [...] CT HEAD/BRAIN W/O CONTRAST MATERIAL Clarence Berry, COLLEGE ATHLETE.INSPECTOR OPEN DIE [address] [place] [address] Ct Imaging Referral ID Status Reason Start Date Expiration Date V isits Requested Visits Authorized [id number] Closed Auto-Generate d Referral 10/10/2022 11/09/2023 1 1 Specialty Diagnoses / Procedures Referred By Contac t Referred To Contact [facility] Diagnoses Contusion of right foot, initial encounter Contusion of sabianist region, initial encounter Injury of coccyx, initial encounter Facial pain Jaw pain Procedures CONSULT TO PHYSICAL THERAPY PHYSICAL THERAPY EVALUATION HIGH COMPLEX 45 MINS Clarence Berry, COLLEGE ATHLETE.INSPECTOR OPEN DIE [address] [place] [address] [facility] [place] [address] [address] Referral ID Status Reason Start Date Expiration Date Visits Requested Visits Authorized [id number] Authorized PCP Requested Referral Auto-Generate d Referral 10/10/2022 10/10/2023 99 99 Specialty Diagnoses / Procedures Referred By Contac t Referred To Contact Gastroenterology 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 Procedures CONSULT TO GASTROENTEROLOGY OFFICE/OUTPATIENT [facility] 60-74 MINUTES Clarence Berry, COLLEGE ATHLETE.INSPECTOR OPEN DIE [address] [place] [address] Referral ID Status Reason Start Date Expiration Date Visits Requested Visits Authorized [id number] Authorized PCP Requested Referral 3 05/30/2024 1 1 Specialty Diagnoses / Procedures Referred By Contac t Referred To Contact CT IMAGING Diagnoses Injury of head, subsequent encounter Procedures CT BRAIN WO IVCON CT HEAD/BRAIN W/O CONTRAST MATERIAL Clarence Berry, COLLEGE ATHLETE.INSPECTOR OPEN DIE [address] [place] [address] [id number] Specialty Diagnoses / Procedures Referred By Contac t Referred To Contact Orthopedics Diagnoses Pain in left ta Procedures CONSULT TO ORTHOPAEDICS OFFICE/OUTPATIENT [facility] 60-74 MINUTES Clarence Berry, COLLEGE ATHLETE.INSPECTOR OPEN DIE [address] [place] [address] Referral ID Status Reason Start Date Expiration Date Visits Requested Visits Authorized [id number] Authorized PCP Requested Referral 3 07/01/2024 1 1 Summary Purpose Additional Source Comments Source Comments (unrecognize d section and content) In the event this informatio n is protected by the Federal Confidentiality of Alcohol and Drug Abuse Patient Records regulations: The Federal rules restrict any use of the information to criminally investigate or prosecute any alcohol or drug abuse patient.[facility] event this information is protected by the Federal Confidentiality of Alcohol and Drug Abuse Patient Records regulations: The Federal rules restrict any use of the information to criminally investigate or prosecute any alcohol or drug abuse patient.[facility] the event this information is protected by the Federal Confidentiality of Alcohol and Drug Abuse Patient Records regulations: The Federal rules restrict any use of the information to criminally investigate or prosecute any alcohol or drug abuse patient.[facility] the event this information is protected by the Federal Confidentiality of Alcohol and Drug Abuse Patient Records regulations: The Federal rules restrict any use of the information to criminally investigate or prosecute any alcohol or drug abuse patient.[facility] the event this information is protected by the Federal Confidentiality of Alcohol and Drug Abuse Patient Records regulations: The Federal rules restrict any use of the information to criminally investigate or prosecute any alcohol or drug abuse patient.[facility] the event this information is protected by the Federal Confidentiality of Alcohol and Drug Abuse Patient Records regulations: The Federal rules restrict any use of the information to criminally investigate or prosecute any alcohol or drug abuse patient.[facility] the event this information is protected by the Federal Confidentiality of Alcohol and Drug Abuse Patient Records regulations: The Federal rules restrict any use of the information to criminally investigate or prosecute any alcohol or drug abuse patient.[facility] the event this information is protected by the Federal Confidentiality of Alcohol and Drug Abuse Patient Records regulations: The Federal rules restrict any use of the information to criminally investigate or prosecute any alcohol or drug abuse patient.[facility] the event this information is protected by the Federal Confidentiality of Alcohol and Drug Abuse Patient Records regulations: The Federal rules restrict any use of the information to criminally investigate or prosecute any alcohol or drug abuse patient.[facility] the event this information is protected by the Federal Confidentiality of Alcohol and Drug Abuse Patient Records regulations: The Federal rules restrict any use of the information to criminally investigate or prosecute any alcohol or drug abuse patient.[facility] the event this information is protected by the Federal Confidentiality of Alcohol and Drug Abuse Patient Records regulations: The Federal rules restrict any use of the information to criminally investigate or prosecute any alcohol or drug abuse patient.[facility] the event this information is protected by the Federal Confidentiality of Alcohol and Drug Abuse Patient Records regulations: The Federal rules restrict any use of the information to criminally investigate or prosecute any alcohol or drug abuse patient.[facility] the event this information is protected by the Federal Confidentiality of Alcohol and Drug Abuse Patient Records regulations: The Federal rules restrict any use of the information to criminally investigate or prosecute any alcohol or drug abuse patient.[facility] the event this information is protected by the Federal Confidentiality of Alcohol and Drug Abuse Patient Records regulations: The Federal rules restrict any use of the information to criminally investigate or prosecute any alcohol or drug abuse patient.[facility] the event this information is protected by the Federal Confidentiality of Alcohol and Drug Abuse Patient Records regulations: The Federal rules restrict any use of the information to criminally investigate or prosecute any alcohol or drug abuse patient.[facility] the event this information is protected by the Federal Confidentiality of Alcohol and Drug Abuse Patient Records regulations: The Federal rules restrict any use of the information to criminally investigate or prosecute any alcohol or drug abuse patient.[facility] the event this information is protected by the Federal Confidentiality of Alcohol and Drug Abuse Patient Records regulations: The Federal rules restrict any use of the information to criminally investigate or prosecute any alcohol or drug abuse patient.[facility] the event this information is protected by the Federal Confidentiality of Alcohol and Drug Abuse Patient Records regulations: The Federal rules restrict any use of the information to criminally investigate or prosecute any alcohol or drug abuse patient.[facility] the event this information is protected by the Federal Confidentiality of Alcohol and Drug Abuse Patient Records regulations: The Federal rules restrict any use of the information to criminally investigate or prosecute any alcohol or drug abuse patient.[facility] the event this information is protected by the Federal Confidentiality of Alcohol and Drug Abuse Patient Records regulations: The Federal rules restrict any use of the information to criminally investigate or prosecute any alcohol or drug abuse patient.[facility] the event this information is protected by the Federal Confidentiality of Alcohol and Drug Abuse Patient Records regulations: The Federal rules restrict any use of the information to criminally investigate or prosecute any alcohol or drug abuse patient.[facility] the event this information is protected by the Federal Confidentiality of Alcohol and Drug Abuse Patient Records regulations: The Federal rules restrict any use of the information to criminally investigate or prosecute any alcohol or drug abuse patient.[facility] event this information is protected by the Federal Confidentiality of Alcohol and Drug Abuse Patient Records regulations: The Federal rules restrict any use of the information to criminally investigate or prosecute any alcohol or drug abuse patient.[facility] event this information is protected by the Federal Confidentiality of Alcohol and Drug Abuse Patient Records regulations: The Federal rules restrict any use of the information to criminally investigate or prosecute any alcohol or drug abuse patient.[facility] the event this information is protected by the Federal Confidentiality of Alcohol and Drug Abuse Patient Records regulations: The Federal rules restrict any use of the information to criminally investigate or prosecute any alcohol or drug abuse patient.[facility] the event this information is protected by the Federal Confidentiality of Alcohol and Drug Abuse Patient Records regulations: The Federal rules restrict any use of the information to criminally investigate or prosecute any alcohol or drug abuse patient.[facility] the event this information is protected by the Federal Confidentiality of Alcohol and Drug Abuse Patient Records regulations: The Federal rules restrict any use of the information to criminally investigate or prosecute any alcohol or drug abuse patient.[facility] the event this information is protected by the Federal Confidentiality of Alcohol and Drug Abuse Patient Records regulations: The Federal rules restrict any use of the information to criminally investigate or prosecute any alcohol or drug abuse patient.[facility] the event this information is protected by the Federal Confidentiality of Alcohol and Drug Abuse Patient Records regulations: The Federal rules restrict any use of the information to criminally investigate or prosecute any alcohol or drug abuse patient.[facility] SystemIn the event this information is protected by the Federal Confidentiality of Alcohol and Drug Abuse Patient Records regulations: The Federal rules restrict any use of the information to criminally investigate or prosecute any alcohol or drug abuse patient.[facility] SystemIn the event this information is protected by the Federal Confidentiality of Alcohol and Drug Abuse Patient Records regulations: The Federal rules restrict any use of the information to criminally investigate or prosecute any alcohol or drug abuse patient.[facility] SystemIn the event this information is protected by the Federal Confidentiality of Alcohol and Drug Abuse Patient Records regulations: The Federal rules restrict any use of the information to criminally investigate or prosecute any alcohol or drug abuse patient.[facility] SystemIn the event this information is protected by the Federal Confidentiality of Alcohol and Drug Abuse Patient Records regulations: The Federal rules restrict any use of the information to criminally investigate or prosecute any alcohol or drug abuse patient.[facility] SystemIn the event this information is protected by the Federal Confidentiality of Alcohol and Drug Abuse Patient Records regulations: The Federal rules restrict any use of the information to criminally investigate or prosecute any alcohol or drug abuse patient.[facility] SystemIn the event this information is protected by the Federal Confidentiality of Alcohol and Drug Abuse Patient Records regulations: The Federal rules restrict any use of the information to criminally investigate or prosecute any alcohol or drug abuse patient.[facility] SystemIn the event this information is protected by the Federal Confidentiality of Alcohol and Drug Abuse Patient Records regulations: The Federal rules restrict any use of the information to criminally investigate or prosecute any alcohol or drug abuse patient.[facility] SystemIn the event this information is protected by the Federal Confidentiality of Alcohol and Drug Abuse Patient Records regulations: The Federal rules restrict any use of the information to criminally investigate or prosecute any alcohol or drug abuse patient.[facility] SystemIn the event this information is protected by the Federal Confidentiality of Alcohol and Drug Abuse Patient Records regulations: The Federal rules restrict any use of the information to criminally investigate or prosecute any alcohol or drug abuse patient.[facility] SystemIn the event this information is protected by the Federal Confidentiality of Alcohol and Drug Abuse Patient Records regulations: The Federal rules restrict any use of the information to criminally investigate or prosecute any alcohol or drug abuse patient.[facility] SystemIn the event this information is protected by the Federal Confidentiality of Alcohol and Drug Abuse Patient Records regulations: The Federal rules restrict any use of the information to criminally investigate or prosecute any alcohol or drug abuse patient.[facility] SystemIn the event this information is protected by the Federal Confidentiality of Alcohol and Drug Abuse Patient Records regulations: The Federal rules restrict any use of the information to criminally investigate or prosecute any alcohol or drug abuse patient.[facility] SystemIn the event this information is protected by the Federal Confidentiality of Alcohol and Drug Abuse Patient Records regulations: The Federal rules restrict any use of the information to criminally investigate or prosecute any alcohol or drug abuse patient.[facility] SystemIn the event this information is protected by the Federal Confidentiality of Alcohol and Drug Abuse Patient Records regulations: The Federal rules restrict any use of the information to criminally investigate or prosecute any alcohol or drug abuse patient.[facility] SystemIn the event this information is protected by the Federal Confidentiality of Alcohol and Drug Abuse Patient Records regulations: The Federal rules restrict any use of the information to criminally investigate or prosecute any alcohol or drug abuse patient.[facility] SystemIn the event this information is protected by the Federal Confidentiality of Alcohol and Drug Abuse Patient Records regulations: The Federal rules restrict any use of the information to criminally investigate or prosecute any alcohol or drug abuse patient.[facility] SystemIn the event this information is protected by the Federal Confidentiality of Alcohol and Drug Abuse Patient Records regulations: The Federal rules restrict any use of the information to criminally investigate or prosecute any alcohol or drug abuse patient.[facility] SystemIn the event this information is protected by the Federal Confidentiality of Alcohol and Drug Abuse Patient Records regulations: The Federal rules restrict any use of the information to criminally investigate or prosecute any alcohol or drug abuse patient.[facility] SystemIn the event this information is protected by the Federal Confidentiality of Alcohol and Drug Abuse Patient Records regulations: The Federal rules restrict any use of the information to criminally investigate or prosecute any alcohol or drug abuse patient.[facility] SystemIn the event this information is protected by the Federal Confidentiality of Alcohol and Drug Abuse Patient Records regulations: The Federal rules restrict any use of the information to criminally investigate or prosecute any alcohol or drug abuse patient.[facility] SystemIn the event this information is protected by the Federal Confidentiality of Alcohol and Drug Abuse Patient Records regulations: The Federal rules restrict any use of the information to criminally investigate or prosecute any alcohol or drug abuse patient.[facility] SystemIn the event this information is protected by the Federal Confidentiality of Alcohol and Drug Abuse Patient Records regulations: The Federal rules restrict any use of the information to criminally investigate or prosecute any alcohol or drug abuse patient.[facility] SystemIn the event this information is protected by the Federal Confidentiality of Alcohol and Drug Abuse Patient Records regulations: The Federal rules restrict any use of the information to criminally investigate or prosecute any alcohol or drug abuse patient.[facility] SystemIn the event this information is protected by the Federal Confidentiality of Alcohol and Drug Abuse Patient Records regulations: The Federal rules restrict any use of the information to criminally investigate or prosecute any alcohol or drug abuse patient.[facility] SystemIn the event this information is protected by the Federal Confidentiality of Alcohol and Drug Abuse Patient Records regulations: The Federal rules restrict any use of the information to criminally investigate or prosecute any alcohol or drug abuse patient.[facility] the event this information is protected by the Federal Confidentiality of Alcohol and Drug Abuse Patient Records regulations: The Federal rules restrict any use of the information to criminally investigate or prosecute any alcohol or drug abuse patient.[facility] SystemIn the event this information is protected by the Federal Confidentiality of Alcohol and Drug Abuse Patient Records regulations: The Federal rules restrict any use of the information to criminally investigate or prosecute any alcohol or drug abuse patient.[facility] SystemIn the event this information is protected by the Federal Confidentiality of Alcohol and Drug Abuse Patient Records regulations: The Federal rules restrict any use of the information to criminally investigate or prosecute any alcohol or drug abuse patient.[facility] SystemIn the event this information is protected by the Federal Confidentiality of Alcohol and Drug Abuse Patient Records regulations: The Federal rules restrict any use of the information to criminally investigate or prosecute any alcohol or drug abuse patient.[facility] SystemIn the event this information is protected by the Federal Confidentiality of Alcohol and Drug Abuse Patient Records regulations: The Federal rules restrict any use of the information to criminally investigate or prosecute any alcohol or drug abuse patient.[facility] SystemIn the event this information is protected by the Federal Confidentiality of Alcohol and Drug Abuse Patient Records regulations: The Federal rules restrict any use of the information to criminally investigate or prosecute any alcohol or drug abuse patient.[facility] SystemIn the event this information is protected by the Federal Confidentiality of Alcohol and Drug Abuse Patient Records regulations: The Federal rules restrict any use of the information to criminally investigate or prosecute any alcohol or drug abuse patient.[facility] SystemIn the event this information is protected by the Federal Confidentiality of Alcohol and Drug Abuse Patient Records regulations: The Federal rules restrict any use of the information to criminally investigate or prosecute any alcohol or drug abuse patient.[facility] SystemIn the event this information is protected by the Federal Confidentiality of Alcohol and Drug Abuse Patient Records regulations: The Federal rules restrict any use of the information to criminally investigate or prosecute any alcohol or drug abuse patient.[facility] SystemIn the event this information is protected by the Federal Confidentiality of Alcohol and Drug Abuse Patient Records regulations: The Federal rules restrict any use of the information to criminally investigate or prosecute any alcohol or drug abuse patient.[facility] SystemIn the event this information is protected by the Federal Confidentiality of Alcohol and Drug Abuse Patient Records regulations: The Federal rules restrict any use of the information to criminally investigate or prosecute any alcohol or drug abuse patient.[facility] SystemIn the event this information is protected by the Federal Confidentiality of Alcohol and Drug Abuse Patient Records regulations: The Federal rules restrict any use of the information to criminally investigate or prosecute any alcohol or drug abuse patient.[facility] SystemIn the event this information is protected by the Federal Confidentiality of Alcohol and Drug Abuse Patient Records regulations: The Federal rules restrict any use of the information to criminally investigate or prosecute any alcohol or drug abuse patient.[facility] SystemIn the event this information is protected by the Federal Confidentiality of Alcohol and Drug Abuse Patient Records regulations: The Federal rules restrict any use of the information to criminally investigate or prosecute any alcohol or drug abuse patient.[facility] SystemIn the event this information is protected by the Federal Confidentiality of Alcohol and Drug Abuse Patient Records regulations: The Federal rules restrict any use of the information to criminally investigate or prosecute any alcohol or drug abuse patient.[facility] SystemIn the event this information is protected by the Federal Confidentiality of Alcohol and Drug Abuse Patient Records regulations: The Federal rules restrict any use of the information to criminally investigate or prosecute any alcohol or drug abuse patient.[facility] SystemIn the event this information is protected by the Federal Confidentiality of Alcohol and Drug Abuse Patient Records regulations: The Federal rules restrict any use of the information to criminally investigate or prosecute any alcohol or drug abuse patient.[facility] SystemIn the event this information is protected by the Federal Confidentiality of Alcohol and Drug Abuse Patient Records regulations: The Federal rules restrict any use of the information to criminally investigate or prosecute any alcohol or drug abuse patient.[facility] SystemIn the event this information is protected by the Federal Confidentiality of Alcohol and Drug Abuse Patient Records regulations: The Federal rules restrict any use of the information to criminally investigate or prosecute any alcohol or drug abuse patient.[facility] SystemIn the event this information is protected by the Federal Confidentiality of Alcohol and Drug Abuse Patient Records regulations: The Federal rules restrict any use of the information to criminally investigate or prosecute any alcohol or drug abuse patient.[facility] SystemIn the event this information is protected by the Federal Confidentiality of Alcohol and Drug Abuse Patient Records regulations: The Federal rules restrict any use of the information to criminally investigate or prosecute any alcohol or drug abuse patient.[facility] SystemIn the event this information is protected by the Federal Confidentiality of Alcohol and Drug Abuse Patient Records regulations: The Federal rules restrict any use of the information to criminally investigate or prosecute any alcohol or drug abuse patient.[facility] SystemIn the event this information is protected by the Federal Confidentiality of Alcohol and Drug Abuse Patient Records regulations: The Federal rules restrict any use of the information to criminally investigate or prosecute any alcohol or drug abuse patient.[facility] SystemIn the event this information is protected by the Federal Confidentiality of Alcohol and Drug Abuse Patient Records regulations: The Federal rules restrict any use of the information to criminally investigate or prosecute any alcohol or drug abuse patient.[facility] SystemIn the event this information is protected by the Federal Confidentiality of Alcohol and Drug Abuse Patient Records regulations: The Federal rules restrict any use of the information to criminally investigate or prosecute any alcohol or drug abuse patient.[facility] Reason for Visit (unrecogniz ed section and [...] Comments follow up from fall 09/28 - WILY 09/30 Reason Comments Insurance Authorization Reason Onset Date Comments Refill Request 02/08/2023 Reason Onset Date Comments Opened In Error 02/12/2023 Reason Comments Medication Question Reason Comments Ear Pain Right ear pain x 1 d ay Reason Comments 4 month f/u Reason Comments Consult EGD consultation. 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 Procedures CONSULT TO GASTROENTEROLOGY OFFICE/OUTPATIENT NEW HIGH MDM 60-74 MINUTES Clarence Berry, [employer].INSPECTOR OPEN DIE [address] [place] [address] Referral ID Status Reason Start Date Expiration Date V isits Requested Visits Authorized [id number] Closed PCP Requested Referral 05/31/2023 05/30/2024 [address] Specialty Diagnoses / Procedures Referred By Maddison peters Referred To Contact CT IMAGING Diagnoses Injury of head, subsequent encounter Procedures CT BRAIN WO IVCON CT HEAD/BRAIN W/O CONTRAST MATERIAL Clarence Berry, [employer].INSPECTOR OPEN DIE [address] [place] [address] [place] [address] Referral ID Status Reason Start Date Expiration Date V isits Requested Visits Authorized [id number] Closed Auto-Generate d Referral 10/10/2022 11/09/2023 1 [...] month Reason Comments Transition Of Care D/C [facility] 07/12/24 for syncope Reason Comments Follow Reason Comments Home Health Point of Care Results Reason Comments [facility] OT updated POC Reason Comments Patient Update Reason Comments ST plan of care Reason Comments Medication Problem Reason Onset Date Comments Population Health Navigation Outreach 11/20/2024 Jovana/Workbench/ACO Reason Comments Occupatioal Therapy Updated Plan of Care Reason Comments Delay of care- OT [facility] Reason Comments OT plan of care Reason Onset Date Comments Home Care Management 12/17/2024 Reason Onset Date Comments Population Health Navigation Outreach 12/23/2024 Jovana/Workbench/ACO Reason Onset Date Comments Population Health Navigation Outreach 01/22/2025 Jovana/Workbench/ACO Reason Onset Date Comments Population Health Navigation Outreach 02/23/2025 Jovana/Workbench/ACO Reason Onset Date Comments Population Health Navigation Outreach 03/26/2025 Jovana/Workbench/ACO Care Teams (unrecognized sec tion and content) Doubler Operator Relationship Specialty Start Date End Date Alicia Blount MD [address] [place] [address] PCP - General Internal Medicine 01/17/17 Doubler Operator Relationship Specialty Start Date End Date Alicia Blount MD [address] [facility] [address] PCP - General Internal Medicine 01/17/17 Doubler Operator Relationship Specialty Start Date End Date Alicia Blount MD [address] [facility] [address] PCP - General Internal Medicine 01/17/17 Doubler Operator Relationship Specialty Start Date End Date Alicia Blount MD [address] [facility] [address] PCP - General Internal Medicine 01/17/17 Doubler Operator Relationship Specialty Start Date End Date Alicia Blount MD [address] [facility] [address] PCP - General Internal Medicine 01/17/17 Doubler Operator Relationship Specialty Start Date End Date Alicia Blount MD [address] [place] [address] PCP - General Internal Medicine 01/17/17 Doubler Operator Relationship Specialty Start Date End Date Alicia Blount MD [address] [facility] [place] [address] PCP - General Internal Medicine 01/17/17 Doubler Operator Relationship Specialty Start Date End Date Alicia Blount MD [address] [facility] [place] [address] PCP - General Internal Medicine 01/17/17 Doubler Operator Relationship Specialty Start Date End Date Alicia Blount MD [facility] [place] [address] PCP - General Internal Medicine 01/17/17 Doubler Operator Relationship Specialty Start Date End Date Alicia Blount MD [address] [place] [address], [place] [address] PCP - General Internal Medicine 01/17/17 Doubler Operator Relationship Specialty Start Date End Date Alicia Blount MD [address] [facility] [place] [address] PCP - General Internal Medicine 01/17/17 Doubler Operator Relationship Specialty Start Date End Date Alicia Blount MD [address] [facility] [place] [address] PCP - General Internal Medicine 01/17/17 Doubler Operator Relationship Specialty Start Date End Date Alicia Blount MD [address] [facility] [place] [address] PCP - General Internal Medicine 01/17/17 Doubler Operator Relationship Specialty Start Date End Date Alicia Blount MD [address] [facility] [place] [address] PCP - General Internal Medicine 01/17/17 Team [...] Provider, Referr ing Provider Active Johana Cat VP [employer]ELOP[employer], VP [employer]OP[employer]-C Attending Provider Active Team Status: Active Member Role Status Dates Dr. Alicia Blount MD Primary Care Provider Active Johana Cat VP [employer]OP[employer], VP [employer]OP[employer]-C Referring Provider, Other Pr ovider Active Dr. Jamar Chanel DO Attending Provider Active Team Status: Active Member Role Status Dates Dr. Alicia Blount MD Primary Care Provider Active Johana Cat VP [employer]ELOP[employer], VP [employer]OP[employer]-C Referring Provider, Other Pr ovider Active Dr. Reji Bran MD Attending Provider Active Team Status: Active Member Role Status Dates Dr. Alicia Blount MD Primary Care Provider Active Dr. Anna Espinoza MD Attending Provider Activ e Team Status: Inactive Member Role Status Dates Dr. Alicia Blount MD Primary Care Provider Active Johana Cat VP [employer]ELOP[employer], VP [employer]ELOP[employer]-C Attending Provider Active Team Status: Inactive Member Role Status Dates Dr. Alicia Blount MD Primary Care Provider Active Johana Cat VP [employer]ELOP[employer], VP [employer]ELOP[employer]-C Attending Provider, Referrin g Provider Active Team Status: Active Member Role Status Dates Dr. Alicia Blount MD Primary Care Provider Active Johana Cat VP [employer]ELOP[employer], VP [employer]ELOPMENT-C Attending Provider Active Doubler Operator Relationship Specialty Start Date End Date Alicia Blount MD [address] [place] [address] PCP - General Internal Medicine 01/17/17 Doubler Operator Relationship Specialty Start Date End Date Alicia Blount MD [address] [place], [place] [id number] PCP - General Internal Medicine 01/17/17 Doubler Operator Relationship Specialty Start Date End Date Alicia Blount MD [address] [place], [place] [id number] PCP - General Internal Medicine 01/17/17 Doubler Operator Relationship Specialty Start Date End Date Alicia Blount MD [address] [facility] [place] [address] PCP - General Internal Medicine 01/17/17 Doubler Operator Relationship Specialty Start Date End Date Alicia Blount MD [address] [place] [address] PCP - General Internal Medicine 01/17/17 Doubler Operator Relationship Specialty Start Date End Date Alicia Blount MD [address] [place] [address] PCP - General Internal Medicine 01/17/17 Doubler Operator Relationship Specialty Start Date End Date Alicia Blount MD [address] [place] [address] PCP - General Internal Medicine 01/17/17 Doubler Operator Relationship Specialty Start Date End Date Alicia Blount MD [address] [place] [address] PCP - General Internal Medicine 01/17/17 Doubler Operator Relationship Specialty Start Date End Date Alicia Blount MD [address] [place] [address] PCP - General Internal Medicine 01/17/17 Doubler Operator Relationship Specialty Start Date End Date Alicia Blount MD [address] [place] [address] PCP - General Internal Medicine 01/17/17 Doubler Operator Relationship Specialty Start Date End Date Alicia Blount MD [address] [place] [address] PCP - General Internal Medicine 01/17/17 Team Status: Inactive Member Role Status Dates Dr. Alicia Blount MD Primary Care Provider, Referr ing Provider Active Dr. Hernando Pandya MD Attending Provider Active Team Status: Active Member Role Status Dates Dr. Alicia Blount MD Primary Care Provider Active Dr. Dada Maynard DO Emergency Provider Active Dr. Edwin Morgan MD Admit Provider, Attending Pro vider Active Doubler Operator Relationship Specialty Start Date End Date Alicia Blount MD [address], [place] [id number] PCP - General Internal Medicine 01/17/17 Team [...] Dr. Denzel Forbes MD Attending Provider Active Doubler Operator Relationship Specialty Start Date End Date Alicia Blount MD [address] [place] [address] PCP - General Internal Medicine 01/17/17 Doubler Operator Relationship Specialty Start Date End Date Alicia Blount MD [address] [place] [address] PCP - General Internal Medicine 01/17/17 Doubler Operator Relationship Specialty Start Date End Date Alicia Blount MD [address] [place], [place] [address] PCP - General Internal Medicine 01/17/17 Team [...] MD Admit Provider, Attending Provid er Active Doubler Operator Relationship Specialty Start Date End Date Alicia Blount MD [address] [place] [address] PCP - General Internal Medicine 01/17/17 Doubler Operator Relationship Specialty Start Date End Date Alicia Blount MD [address] [place] [address] PCP - General Internal Medicine 01/17/17 Doubler Operator Relationship Specialty Start Date End Date Alicia Blount MD [address] [place] [address] PCP - General Internal Medicine 01/17/17 Doubler Operator Relationship Specialty Start Date End Date Alicia Blount MD [address] [place] [address] PCP - General Internal Medicine 01/17/17 Doubler Operator Relationship Specialty Start Date End Date Alicia Blount MD [address] [place] [address] PCP - General Internal Medicine 01/17/17 Doubler Operator Relationship Specialty Start Date End Date Alicia Blount MD [address] [place] [address] PCP - General Internal Medicine 01/17/17 Doubler Operator Relationship Specialty Start Date End Date Alicia Blount MD [address] [place] [address] PCP - General Internal Medicine 01/17/17 Doubler Operator Relationship Specialty Start Date End Date Alicia Blount MD [address] [place] [address] PCP - General Internal Medicine 01/17/17 Doubler Operator Relationship Specialty Start Date End Date Alicia Blount MD [address] [place] [address] PCP - General Internal Medicine 01/17/17 Doubler Operator Relationship Specialty Start Date End Date Alicia Blount MD [address] [place] [address] PCP - General Internal Medicine 01/17/17 Doubler Operator Relationship Specialty Start Date End Date Alicia Blount MD [address] [place] [address] PCP - General Internal Medicine 01/17/17 Doubler Operator Relationship Specialty Start Date End Date Alicia Blount MD [address] [place] [address] PCP - General Internal Medicine 01/17/17 Doubler Operator Relationship Specialty Start Date End Date Alicia Blount MD [address] [place] [address] PCP - General Internal Medicine 01/17/17 Ellen Gonzalez RN [address] [place] [address] Primary Care Rehabilitation Team Lead 07/14/24 Doubler Operator Relationship Specialty Start Date End Date Alicia Blount MD [address] [place] [address] PCP - General Internal Medicine 01/17/17 Ellen Gonzalez RN [address] [place] [address] Primary Care Rehabilitation Team Lead 07/14/24 Clarence Berry APRN.INSPECTOR OPEN DIE [address] [place] [address] Sole Sewer Hand Internal Medicine 07/21/24 Isabella Emerson APRN.INTERMEDIATE DESIGNER [address] [place] [address] Sole Sewer Hand Internal Medicine 07/21/24 Doubler Operator Relationship Specialty Start Date End Date Alicia Blount MD [address] [place] [address] PCP - General Internal Medicine 01/17/17 Ellen Gonzalez, MANNY [address] [place] [address] Primary Care Rehabilitation Team Lead 07/14/24 Doubler Operator Relationship Specialty Start Date End Date Alicia Blount MD [address] [place] [address] PCP - General Internal Medicine 01/17/17 Clarence Berry, COLLEGE ATHLETE.INSPECTOR OPEN DIE [address] [place] [address] Sole Sewer Hand Internal Medicine 07/21/24 Isabella Emerson APRN.INTERMEDIATE DESIGNER [address] [place] [address] Sole Sewer Hand Internal Medicine 07/21/24 Doubler Operator Relationship Specialty Start Date End Date Alicia Blount MD [address] [place] [address] PCP - General Internal Medicine 01/17/17 Clarence Berry, COLLEGE ATHLETE.INSPECTOR OPEN DIE [address] [place] [address] Sole Sewer Hand Internal Medicine 07/21/24 Isabella Emerson APRN.INTERMEDIATE DESIGNER [address] [place] [address] Sole Sewer Hand Internal Medicine 07/21/24 Shelby Dee, MANNY [address] [place] [address] Primary Care Rehabilitation Team Lead 10/20/24 10/20/24 Doubler Operator Relationship Specialty Start Date End Date Alicia Blount MD [address] [facility] [place] [address] PCP - General Internal Medicine 01/17/17 Clarence Berry, COLLEGE ATHLETE.INSPECTOR OPEN DIE [address] [facility] [place] [address] Sole Sewer Hand Internal Medicine 07/21/24 Isabella Emerson COLLEGE ATHLETE.INTERMEDIATE DESIGNER [address] [facility] [place] [address] [facility] Internal Medicine 07/21/24 Doubler Operator Relationship Specialty Start Date End Date Alicia Blount MD [address] [facility] [place] [address] PCP - General Internal Medicine 01/17/17 Clarence Berry, COLLEGE ATHLETE.INSPECTOR OPEN DIE [address] [facility] [place] [address] Sole Sewer Hand Internal Medicine 07/21/24 Isabella Emerson COLLEGE ATHLETE.INTERMEDIATE DESIGNER [address] [facility] [place] [address] [facility] Internal Medicine 07/21/24 Doubler Operator Relationship Specialty Start Date End Date Alicia Blount MD [address] [facility] [place] [address] PCP - General Internal Medicine 01/17/17 Clarence Berry, COLLEGE ATHLETE.INSPECTOR OPEN DIE [address] [facility] [place] [address] Sole Sewer Hand Internal Medicine 07/21/24 Isabella Emerson APRN.INTERMEDIATE DESIGNER [address] [place] [address] Sole Sewer Hand Internal Medicine 07/21/24 Doubler Operator Relationship Specialty Start Date End Date Alicia Blount MD [address] [place] [address] PCP - General Internal Medicine 01/17/17 Clarence Berry, COLLEGE ATHLETE.INSPECTOR OPEN DIE [address] [place] [address] Sole Sewer Hand Internal Medicine 07/21/24 Isabella Emerson APRN.INTERMEDIATE DESIGNER [address] [place] [address] Sole Sewer Hand Internal Medicine 07/21/24 Doubler Operator Relationship Specialty Start Date End Date Alicia Blount MD [address] [place] [address] PCP - General Internal Medicine 01/17/17 Clarence Berry, COLLEGE ATHLETE.INSPECTOR OPEN DIE [address] [place] [address] Sole Sewer Hand Internal Medicine 07/21/24 Isabella Emerson APRN.INTERMEDIATE DESIGNER [address] [facility] [place] [address] Sole Sewer Hand Internal Medicine 11/04/24 Doubler Operator Relationship Specialty Start Date End Date Alicia Blount MD [address] [place] [address] PCP - General Internal Medicine 01/17/17 Clarence Berry, COLLEGE ATHLETE.INSPECTOR OPEN DIE [address] [place] [address] Sole Sewer Hand Internal Medicine 07/21/24 Isabella Emerson COLLEGE ATHLETE.INTERMEDIATE DESIGNER [address] [place] [address] Sole Sewer Hand Internal Medicine 11/04/24 Doubler Operator Relationship Specialty Start Date End Date Alicia Blount MD [address] [place] [address] PCP - General Internal Medicine 01/17/17 Clarence Berry, COLLEGE ATHLETE.INSPECTOR OPEN DIE [address] [place] [address] Sole Sewer Hand Internal Medicine 07/21/24 Isabella Emerson COLLEGE ATHLETE.INTERMEDIATE DESIGNER [address] [place] [address] [facility] Internal Medicine 11/04/24 Doubler Operator Relationship Specialty Start Date End Date Alicia Blount MD [address] [place] [address] PCP - General Internal Medicine 01/17/17 Clarence Berry, COLLEGE ATHLETE.INSPECTOR OPEN DIE [address] [place] [address] [facility] Internal Medicine 07/21/24 Isabella Emerson COLLEGE ATHLETE.INTERMEDIATE DESIGNER [address] [place] [address] Sole Sewer Hand Internal Medicine 07/21/24 10/31/24 Isabella Emerson COLLEGE ATHLETE.INTERMEDIATE DESIGNER [address] [place] [address] Sole Sewer Hand Internal Medicine 11/04/24 Doubler Operator Relationship Specialty Start Date End Date Alicia Blount MD [address] [place], [place] [address] PCP - General Internal Medicine 01/17/17 Isabella Emerson COLLEGE ATHLETE.INTERMEDIATE DESIGNER [address] [place] [address] Sole Sewer Hand Internal Medicine 11/04/24 Clarence Berry, COLLEGE ATHLETE.INSPECTOR OPEN DIE [address] [place] [address] [facility] Internal Medicine 12/31/24 Doubler Operator Relationship Specialty Start Date End Date Alicia Blount MD [address] [place] [address] PCP - General Internal Medicine 01/17/17 Isabella Emerson COLLEGE ATHLETE.INTERMEDIATE DESIGNER [address] [place] [address] [facility] Internal Medicine 11/04/24 Clarence Berry, COLLEGE ATHLETE.INSPECTOR OPEN DIE [address] [place] [address] [facility] Internal Medicine 12/31/24 Goals (unrecognized section and content) Goals may be documented in a n alternate sectionGoals may be documented in an alternate sectionGoals may be documented in an alternate sectionGoals may be documented in an alternate section INFORMATION SOURCE (unrecogn ized section and content) DATE CREATED AUTHOR 06/10/2023 [facility] DATE CREATED AUTHOR AUTHOR'S ROSY ALMANZA 03/28/2025 [facility] DATE CREATED AUTHOR AUTHOR'S ORGANIZ ATION 06/05/2025 [facility] FOR RECORDS PERTAINING TO PATIENTS WHO ARE [...] BE BASED ON THE PRIMARY CLINICAL RECORDS. [facility] [employer] [facility]. provides no warranty or guarantee of the accuracy or completeness of information in this document.
--- NOTE | 2025-06-22 20:45 | PCM.HP.STD ---
HPI - General General Date of Admission: 06/22/25 Date of Service: 06/22/25 Chief Complaint: Low back pain, mechanical fall at home HPI Narrative CHRISTINA IVORY, is a 85 F who presents to the emergency room at [facility] after sustaining a mechanical fall at home injuring her head, right elbow and back. Patient complains of mid and upper back pain on movement. Workup in the emergency room included a brain CT which showed no evidence of any acute intracranial pathology, thoracic spine CT was performed which showed acute superior endplate compression fracture of T3 vertebral body with roughly 50% height loss and mild retropulsion with resultant focal kyphotic angulation at this level. There was also noted to be minimally displaced acute fractures of T2 and T3 spinous processes. Patient will be admitted to [place] [address], she will be seen by PT and OT as well as spinal surgery. Patient will need a midline inserted due to poor venous access, she may need temporary placement in a senior care facility for skilled services. [facility] Medical History Diabetes GERD (gastroesophageal reflux disease) Hypertension Overactive bladder Nocturia Stress incontinence Urge incontinence Low iron Stroke/cerebrovascular accident Injury of head and neck Loss of consciousness Difficulty swallowing History of ulceration Cardiology follow-up encounter History of Holter monitoring Presence of insulin pump Osteopenia Proteinuria due to type 2 diabetes mellitus Lumbar radiculopathy, chronic Anxiety and depression Carotid artery stenosis Abnormal urinalysis Facial droop Chronic prescription benzodiazepine use Hypoxia Wears glasses MRSA infection History of Clostridium difficile infection Cancer Insulin dependent diabetes mellitus Walker as ambulation aid Arthritis Bladder disease Easy bruising Injury of back Back pain Unsteady gait Dietary restriction Non-smoker Chronic cough Hoarseness Leg cramps History of edema History of echocardiogram History of stress test Lumbar scoliosis Herniation of intervertebral disc at L3-L4 level Hyperlipidemia Debility Fatigue Mild cognitive impairment Overweight (BMI 25.0-29.9) Migraine without aura, not intractable, without status migrainosus Polyneuropathy Abnormal finding on thyroid function test Acute ischemic stroke 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 Acute gastritis Enlargement of lymph nodes Restless legs GERD (gastroesophageal reflux disease) Essential (primary) hypertension Home Medications ?Medication ?Instructions ?Recorded ?Last Taken ?Type cholecalciferol (vitamin D3) 25 25 mcg PO DAILY vitamin 30 days 10/10/24 06/22/25 Rx mcg (1,000 unit) tablet #30 tabs vit C 250 mg-vit E 90 mg-zinc 40 2 tab PO BID vitamin 11/11/24 06/22/25 History mg-copper 1 [id number]-fmbzus capsule (PreserVision AREDS-2) famotidine 20 mg tablet 40 mg (2 x 20 mg) PO DAILY reflux 11/27/24 06/22/25 Rx 30 days #60 tabs Lactobacillus acidophilus 1,200 mg PO QDAY supplement 01/01/25 06/22/25 History (Acidophilus capsule) ascorbic acid (vitamin C) 500 mg 500 mg PO QDAY vitamin 01/01/25 06/22/25 History tablet methenamine hippurate 1 gram tablet 1 g PO BID infection 01/01/25 06/22/25 History vibegron 75 mg tablet (Gemtesa) 75 mg PO QDAY bladder 01/01/25 06/22/25 History Handicap Placard #1 ea 01/06/25 Unknown Rx aspirin 81 mg chewable tablet 162 mg PO BREAKFAST Heart health 02/04/25 06/22/25 History duloxetine 60 mg capsule,delayed 60 mg PO QAM mental health #30 caps 02/27/25 06/22/25 Rx release insulin pump cart,auto,BT,G6/7 #30 ea 02/27/25 Unknown Rx (Omnipod 5 G6-G7 Pods (Gen 5) subcutaneous cartridge) metoprolol tartrate 50 mg tablet 50 mg PO TID blood pressure 30 03/02/25 06/22/25 Rx days #270 tabs insulin lispro 100 unit/mL 70 unit (0.7 mL) subcut DAILY 03/30/25 06/22/25 Rx subcutaneous solution (Humalog diabetes #20 mL U-100 Insulin) cyanocobalamin (vitamin B-12) 1,000 mcg PO DAILY vitamin 03/31/25 06/22/25 History 1,000 mcg capsule atorvastatin 40 mg tablet 40 mg PO DAILY cholesterol 30 days 04/06/25 06/22/25 Rx #90 tabs ipratropium bromide 42 mcg (0.06 2 spray NASAL BID allergies 30 04/25/25 Unknown Rx %) nasal spray days #15 mL clonidine 0.2 mg/24 hr weekly 0.2 mg transdermal We@1000 blood 06/15/25 06/15/25 Rx transdermal patch pressure 30 days #12 ea cyanocobalamin (vitamin B-12) .ROUTE 06/22/25 06/22/25 History Allergy/AdvReac Type Severity Reaction Status Date / Time shrimp Allergy Unknown unknown Verified 06/22/25 15:32 adhesive tape Allergy Hives/Rash Verified 06/22/25 15:32 ciprofloxacin (From Cipro) Allergy Photosensitivity Verified 06/22/25 15:32 & dermatitis pioglitazone (From Actos) Allergy Unknown Verified 06/22/25 15:32 codeine AdvReac Upset Verified 06/22/25 15:32 Stomach ibandronate sodium (From AdvReac GI Verified 06/22/25 15:32 Boniva) upset/esophageal burning ibuprofen AdvReac GI upset Verified 06/22/25 15:32 iodine AdvReac Vomiting Verified 06/22/25 15:32 lansoprazole AdvReac Diarrhea Verified 06/22/25 15:32 metformin AdvReac Diarrhea Verified 06/22/25 15:32 miconazole (From Neosporin AdvReac Rash/Bliste Verified 06/22/25 15:32 AF) rs nabumetone (From Relafen) AdvReac GI upset Verified 06/22/25 15:32 pantoprazole (From Protonix) AdvReac Diarrhea Verified 06/22/25 15:32 sucralfate (From Carafate) AdvReac feels Verified 06/22/25 15:32 poorly Family History Father Lung cancer Colon cancer Mother Mesothelioma Hypertension Grandmother Heart disease Other Arthritis Asthma Breast cancer CVA (cerebral vascular accident) Cancer Diabetes Hyperlipidemia Osteoporosis Surgical History Hx of colonoscopy Hx of right cataract extraction Hx of left cataract extraction History of lobectomy of lung History of lung biopsy H/O endoscopy Spinal injections S/P rotator cuff repair Social History adopted: No household members: spouse housing: house number of children: 4 current occupational status: retired current occupation: Worked at the [employer] pets and animals: No sexually active: No Smoking Status: Never smoker second hand exposure: No alcohol intake: never substance use type: does not use diet: diabetic caffeine: No what type of physical activity do you participate in: other details: PT & OT frequency: 1-2 times per week do you feel safe at home: Yes ROS Constitutional Constitutional: Denies anorexia, change in weight, chills, fatigue, fever(s), night sweats or weakness Eyes Eyes: Denies blurry vision, change in vision, discharge from eye(s) or eye pain Cardiovascular Cardiovascular: Denies chest pain, claudication, dyspnea on exertion, edema or palpitations Respiratory/Chest Respiratory/Chest: Denies cough, hemoptysis, shortness of breath at rest or shortness of breath with exertion Gastrointestinal Gastrointestinal: Denies abdominal pain, constipation, diarrhea, hematemesis, hematochezia, melena, nausea or vomiting Genitourinary Genitourinary: Denies dysuria, hematuria, urinary frequency, urinary hesitancy, urinary incontinence or urinary urgency Musculoskeletal Musculoskeletal: Reports back pain; Denies joint pain, joint stiffness, joint swelling, myalgias or neck pain Neurologic Neurologic: Denies abnormal gait, abnormal speech, confusion, disequilibrium, dizziness, focal weakness, headache(s), loss of vision, numbness, other visual disturbances, paresthesias, syncope or tingling Psychiatric Psychiatric: Denies anxiety, cognitive impairment, depression, irritability, mood swings or suicidal ideation Endocrine Endocrinology: Denies change in body appearance, cold intolerance, excessive sweating, heat intolerance, polydipsia or polyuria Hematologic/Lymphatic Hematologic/Lymphatic: Denies none, anemia, easy bleeding, easy bruising or lymphadenopathy Allergic/Immunologic Allergic/Immunologic: Denies rhinitis, urticaria, eczemia or asthma Vital Signs Vital Signs Vital Signs: 06/22/25 15:33 06/22/25 16:39 06/22/25 18:14 Temperature 96.4 F L Temperature Source Temporal Pulse Rate 76 73 Respiratory Rate 18 16 Respiratory Effort Normal Non-Labored Respiratory Depth Normal Respiratory Pattern Normal Blood Pressure 161/92 H 154/71 H Blood Pressure Mean 115 98 Pulse Ox 98 100 Oxygen Delivery Method Room Air Room Air Room Air 06/22/25 20:00 Temperature 98.3 F Temperature Source Pulse Rate 81 Respiratory Rate 18 Respiratory Effort Respiratory Depth Respiratory Pattern Blood Pressure 154/83 H Blood Pressure Mean 106 Pulse Ox 96 Oxygen Delivery Method Weight Weight: 65.317 kg Body Mass Index (BMI) 26.3 Physical Exam Narrative Patient was unable to ambulate without assistance due to mid and upper back pain Const alert, oriented x3, no apparent distress and healthy appearing General Appearance: cooperative, well kempt and well developed Orientation / Consciousness: awake, oriented to person, oriented to place and oriented to time HEENT normocephalic, head/scalp atraumatic, hearing grossly normal bilaterally and moist oral mucous membranes Eyes PERRL, EOMs intact bilaterally and conjunctivae normal Neck supple, no JVD, thyroid normal and no carotid bruits General: trachea midline Resp normal respiratory effort, no retractions, no use of accessory muscles and clear to auscultation bilaterally Auscultation: Negative for rales, rhonchi or wheezes Cardio regular rate, regular rhythm, no murmurs, no rub and no gallops GI normal to inspection, nondistended, normoactive bowel sounds, soft to palpation, non-tender and non-distended Extremity no clubbing, cyanosis or edema Skin no rashes or lesions noted General Skin Exam: no breakdown Neuro oriented x3, CN's II-XII intact bilaterally, no focal motor deficits and no sensory deficits noted Sensorium / Orientation: awake and alert Speech: speech normal Psych affect normal Results Lab / Micro Data 06/22/25 20:33 06/22/25 20:33 Imaging Radiology Impression Brain CT 06/22/25 16:23 IMPRESSION: No acute intracranial process. Reading Location: [facility] Thoracic Spine CT 06/22/25 16:23 IMPRESSION: Flexion-distraction injury of the upper thoracic spine with acute compression fracture of T3, and minimally displaced fractures of the T2 and T3 spinous processes. No subluxation. Slight dorsal retropulsion at T3 with minimal spinal canal narrowing and focal kyphotic angulation. Reading Location: [facility] Assessment & Plan Assessment/Plan (1) Back pain: PLAN: Plan 1. Acute compression fracture of T3 secondary to osteoporosis and mechanical fall-patient will be admitted to [place] [address], she will receive oral analgesics and eventually IV analgesics if necessary, she will be seen by PT and OT as well as spinal surgery, she may need placement in a senior care facility for short-term rehab services. #2 essential hypertension-patient is on a clonidine patch and metoprolol, blood pressure will be monitored #3 chronic depression-patient is on Cymbalta #4 type 2 diabetes-patient will be placed on sliding scale insulin via fingerstick blood sugars Total clinical time spent by myself addressing the patient's medical issues, reviewing all of her data, and collaborating with patient's care team: 55-minute Charges/Coding Visit Charges Inpatient E&M: 66131 Init Hosp L2
[2025-06-22 20:49] LABS: Hematocrit 36.9 % (37-47); Hemoglobin 12.1 g/dL (12.0-15.0); Immature Granulocytes Count 0.050 X10^3/uL (0.0-0.0); Mean Corp Hgb Conc 32.8 g/dL (32-36); Mean Corpuscular Volume 90.7 fL (81-99); Mean Platelet Vol. 10.1 fl (6.2-12.0); NRBC Flagged by Analyzer 0 % (0-5); Platelet Count 222 K/mm3 (150-450); RBC Distribution Width CV 13.6 % (11.6-14.6); RBC Distribution Width SD 45.1 fl (35.1-43.9); Red Blood Count 4.07 M/mm3 (4.2-5.4); White Blood Count 12.2 K/mm3 (4.4-11.0)
--- NOTE | 2025-06-22 20:56 | ED.RN ---
This RN notified daughter Allen Gaviria of admission. Allen requests that pt not have her glucose reader removed if possible. Informed pt to update floor nurse of this request.
[2025-06-22 21:20] LABS: Anion Gap 13 (5-15); BUN 22 mg/dL (4-19); BUN/Creat Ratio 31.3 RATIO (10-20); Calcium,Total 9.3 mg/dL (7.6-11.0); Carbon Dioxide 22.1 mmol/L (21.0-32.0); Chloride 103 mmol/L (98-108); Estimated Creatinine Clearance 47.26 ml/min (50-250); Glucose 236 mg/dL (70-99); Potassium 4.1 mmol/L (3.3-5.1)
--- OUTSIDE RECORDS SUMMARY | 2025-06-22 21:20 | XMS RPT_ITS | CCD ---
Author Organization [facility] CliniSyor Care Team Providers Care Health Type Technician Name Role Phone Alicia Blount MD Primary Care Provider Dr. Alicia Blount Primary Care Provider Dr. Alicia Blount Referring Provider Dr. Reji Bran Attending Provider Dr. Genny Munguia Attending Provider [phone] [facility] SECURITY SPECIALIST, SECURITY SPECIALIST-C Johana Attending Provider [phone] [facility] SECURITY SPECIALIST, SECURITY SPECIALIST-C Johana Other Provider Dr. Jamar Chanel Attending Provider [facility] SECURITY SPECIALIST, SECURITY SPECIALIST-C Johana Referring Provider [phone] Alicia Blount MD Primary Care Provider Dr. Alicia Blount Primary Care Provider Dr. Alicia Blount Referring Provider [facility] SECURITY SPECIALIST, SECURITY SPECIALIST-C Johana Referring Provider [phone] Dr. Reji Bran Attending Provider Dr. Anna Espinoza Attending Provider Dr. Alicia Blount Primary Care Provider Dr. Alicia Blount Referring Provider Dr. Genny Munguia Attending Provider [phone] [facility] SECURITY SPECIALIST, SECURITY SPECIALIST-C Johana Attending Provider [phone] Dr. Hernando Pandya Attending Provider SABINO NELSON Attending Unavailable ALICIA BLOUNT Primary Care Unavailable RADHA BALDERRAMA Referring Unavailable Dr. Alicia Blount Primary Care Provider Dr. Alicia Blount Referring Provider Dr. Genny Munguia Attending Provider [facility] SECURITY SPECIALIST, SECURITY SPECIALIST-C Johana Attending Provider Dr. Hernando Pandya Attending [...] Care Provider Ellen Gonzalez RN Unavailable Berry MOLDER PIPE COVERING.COLLEGE BASKETBALL COACH, Clarence Unavailable Idania MOLDER PIPE COVERING.RESOURCE SPECIALIST, Isabella Unavailable Idania MOLDER PIPE COVERING.RESOURCE SPECIALIST, Isabella Unavailable Leila BRYANT, Shelby Unavailable Idania MOLDER PIPE COVERING.RESOURCE SPECIALIST, Isabella Unavailable Idania MOLDER PIPE COVERING.RESOURCE SPECIALIST, Isabella Unavailable Berry MOLDER PIPE COVERING.COLLEGE BASKETBALL COACH, Clarence Unavailable TALAMPAS, ALICIA D Attending Unavailable TALAMPAS, ALICIA D Primary Care Unavailable TALAMPAS, ALICIA D Attending Unavailable TALAMPAS, ALICIA D Primary Care Unavailable Sementi, Smitha Consulting Unavaila ble Sementi, Nikky Chopra Attending Unavaila ble Sementi, Smitha Admitting Unavaila ble Talampas, Alicia D Primary Care Unavailable Hernando Pandya Referring Unavailable Hernando Pandya Attending Unavailable Radha, Liliya Primary Care Unavailable Violette Don Attending Unavailable Brookside, Liliya Primary Care Unavailable [place], Liliya Referring Unavailable Violette Don Attending Unavailable [place], Liliya Primary Care Unavailable [place], Liliya Referring Unavailable CammydoHernando oneill Attending Unavailable [place], Liliya Primary Care Unavailable Radha, Liliya Referring [...] Magana Consulting Unavailable Violette Don Attending Unavailable [place], Liliya Primary Care Unavailable Nacho Bass Admitting Unavailable Nacho Bass Consulting Unavailable Radha, Liliya Primary Care Unavailable Mk Benjamin Attending Unavailable Hernando Pandya Referring Unavailable Hernando Pandya Attending Unavailable Radha, Liliya Primary Care Unavailable Violette Don Attending Unavailable [place], Liliya Primary Care Unavailable Genny Munguia Attending Unavailable Radha, Liliya Primary Care Unavailable Radha, Liliya Referring Unavailable Hernando Pandya Attending Unavailable BadHernando bermudez Referring Unavailable Radha, Liliya Primary Care Unavailable Talampas, Alicia D Referring Unavailable Talampas, Alicia D Primary Care Unavailable Lucius Silva NP Attending Unavailable Amaury Tucker Attending Unavailable [place], Liliya Primary Care Unavailable Radha, Liliya Referring [...] Tucker Attending Unavailable Amaury Tucker Referring Unavailable [place], Liliya Primary Care Unavailable Talampas, Alicia D Primary Care Unavailable [place], Liliya Attending Unavailable Radha, Liliya Referring Unavailable [...] D Referring Unavailable Genny Munguia Attending Unavailable [place], Liliya Primary Care Unavailable Hernando Pandya Attending Unavailable Hernando Pandya Referring Unavailable Radha, Liliya Primary Care Unavailable Talampas, Alicia D Referring Unavailable Radha, Liliya Attending Unavailable [place], Liliya Primary Care Unavailable Hernando Pandya Attending Unavailable Ya, Hernando Referring Unavailable [place], Liliya Primary Care Unavailable Michelle Zuleta Attending Unavailable [place], Liliya Primary Care Unavailable Talampas, Alicia D Referring Unavailable Talampas, Alicia D Primary Care Unavailable Genny Munguia Attending Unavailable Talampas, Alicia D Primary Care Unavailable Ya, Hernando Referring Unavailable Baddour, Hernando Attending Unavailable Talampas, Alicia D Primary Care Unavailable Baddour, Hernando Referring Unavailable Baddour, Hernando Attending Unavailable Talampas, Alicia D Referring Unavailable Talampas, Alicia D Primary Care Unavailable [place], Liliya Attending Unavailable Talampas, Alicia D Referring Unavailable Talampas, Alicia D Primary Care Unavailable Genny Munguia Attending Unavailable Violette Don Attending Unavailable [place], Liliya Primary Care Unavailable Radha, Liliya Referring Unavailable Allergies Allergy Classification Reported Allergen(s) Allergy Type Date of Onset Reaction(s) Facility Adhesive Tape (1 source) Adhesive Tape Substance Allergy 08-31-19 09 Hives [facility] Work Phone: Aspirin (1 source) Aspirin Drug Allergy 04-16-20 18 Contraindicati on-Medical Surgical [facility] Azole Antifungals (1 source) Miconazole Drug Allergy 12-30-19 21 Other: See Comments [facility] bacitracin / neomycin / polymyxin b (1 source) bacitracin / neomycin / polymyxin b Drug Allergy 08-31-19 09 Rash [facility] Ibandronate (1 source) Ibandronate Drug Allergy 12-05-19 09 GI Upset [facility] Iodine (and Iodine containting drugs) (1 source) Iodine Drug Allergy 08-25-19 09 Vomiting [facility] metFORMIN (1 source) metFORMIN Drug Allergy 05-10-20 11 Diarrhea [facility] Work Phone: NITROFURANTOIN, MACROCRYSTALS / Nitrofurantoin, Monohydrate (1 source) NITROFURANTOIN, MACROCRYSTALS / Nitrofurantoin, Monohydrate Drug Allergy 11-23-19 22 GI Upset, Anaphylaxis [facility] Work Phone: NSAIDs (2 sources) Ibuprofen Drug Allergy 03-22-20 06 GI Upset, Vomiting [facility] Opioid Agonists (1 source) Codeine Drug Allergy 08-24-19 06 GI Upset [facility] Work Phone: Proton Pump Inhibitors (2 sources) lansoprazole Drug Allergy 01-14-20 10 Diarrhea [facility] Quinolones (antibiotic) (1 source) Ciprofloxacin Drug Allergy 12-02-19 14 Other: See Comments [facility] shrimp allergenic extract (1 source) shrimp allergenic extract Drug Allergy 12-22-19 22 GI Upset [facility] Sucralfate (1 source) Sucralfate Drug Allergy 04-24-20 12 Other: See Comments [facility] Thiazolidinediones (glitazones) (2 sources) pioglitazone Drug Allergy 12-04-19 17 Swelling, Unknown [facility] Work Phone: (20 sources) Adhesive Tape; Translations: [ADHESIVE TAPE (ROSINS)] Propensity to adverse reactions to substance 08-31-19 09 Hives [facility] Work Phone: (20 sources) Aspirin; Translations: [ASPIRIN] Drug Allergy 04-16-20 18 Contraindicati on-Medical Surgical [facility] (20 sources) bacitracin / neomycin / polymyxin b; Translations: [NEOMYCIN-BACITRA STARLA-POLYMYXIN] Drug Allergy 08-31-19 09 Rash [facility] (20 sources) Ciprofloxacin; Translations: [CIPROFLOXACIN] Drug Allergy 12-02-19 14 Other: See Comments [facility] (20 sources) Codeine; Translations: [CODEINE] Drug Allergy 08-24-19 06 GI Upset [facility] Work Phone: (20 sources) Ibandronate; Translations: [IBANDRONATE] Drug Allergy 12-05-19 09 GI Upset [facility] (20 sources) Ibuprofen; Translations: [IBUPROFEN] Drug Allergy 03-22-20 06 GI Upset [facility] (20 sources) Iodine; Translations: [IODINE] Drug Allergy 08-25-19 09 Vomiting [facility] (20 sources) lansoprazole; Translations: [LANSOPRAZOLE] Drug Allergy 11-01-19 12 Diarrhea [facility] (20 sources) metFORMIN; Translations: [METFORMIN] Drug Allergy 05-10-20 11 Diarrhea [facility] Work Phone: (20 sources) nabumetone; Translations: [NABUMETONE] Drug Allergy 03-22-20 06 GI Upset, Vomiting [facility] Work Phone: (20 sources) NITROFURANTOIN, MACROCRYSTALS / Nitrofurantoin, Monohydrate; Translations: [NITROFURANTOIN MONOHYD/M-CRYST] Drug Allergy 11-23-19 22 GI Upset, Anaphylaxis [facility] Work Phone: (20 sources) pantoprazole; Translations: [PANTOPRAZOLE] Drug Allergy 01-14-20 10 Diarrhea [facility] (20 sources) pioglitazone; Translations: [PIOGLITAZONE HCL] Drug Allergy 12-04-19 17 Swelling [facility] Work Phone: (20 sources) Sucralfate; Translations: [SUCRALFATE] Drug Allergy 04-24-20 12 Other: See Comments [facility] (20 sources) shrimp allergenic extract; Translations: [SHRIMP] Drug Allergy 12-22-19 22 GI Upset [facility] (8 sources) Adhesive Tape; Translations: [adhesive tape] Allergy to substance 07-26-20 22 Hives/Rash [facility] (20 sources) Miconazole; Translations: [MICONAZOLE] Drug Allergy 12-30-19 21 Other: See Comments [facility] (20 sources) pioglitazone; Translations: [PIOGLITAZONE] Drug Allergy 12-30-19 21 Unknown [facility] (8 sources) Triiodobenzoic Acids; Translations: [IODINATED CONTRAST MEDIA] Propensity to adverse reactions 07-26-20 22 Vomiting [facility] (20 sources) Iodinated Contrast Media Drug Allergy 06-10-20 23 Vomiting [facility] Work Phone: (1 source) Ciprofloxacin Drug Allergy 05-29-20 25 [facility] Repository (1 source) Codeine Drug Allergy 05-29-20 25 [facility] Repository (1 source) Ibadronate Drug Allergy 05-29-20 25 [facility] Repository (1 source) Ibuprofen Drug Allergy 05-29-20 25 [facility] Rep[facility] (1 source) Iodine Drug Allergy 05-29-20 25 [facility] Rep[facility] (1 source) lansoprazole Drug Allergy 05-29-20 25 [facility] Rep[facility] (1 source) metFORMIN Drug Allergy 05-29-20 25 [facility] Repository (1 source) Miconazole Drug Allergy 05-29-20 25 [facility] Rep[facility] (1 source) nabumetone Drug Allergy 05-29-20 [facility] Rep[facility] (1 source) pantoprazole Drug Allergy 05-29-20 [facility] Rep[facility] (1 source) pioglitazone Drug Allergy 05-29-20 [facility] Rep[facility] (1 source) Shrimp product Drug allergy (disorder) 05-29-20 [facility] Rep[facility] (1 source) Sucralfate Drug Allergy 05-29-20 [facility] Rep[facility] (1 source) Iodinated Contrast Media Drug allergy (disorder) 07-10-20 [facility] Rep[facility] Medications Current Medications Medication Drug Class(es) Dates Sig (Normalized) Sig (Original) acetaminophen 500 mg oral tablet (1 source) Start: 06-20-2023 take 1000 mg by mouth every six hours as needed Acetaminophen Active 1000 MG PO EVERY 6 HOURS NEEDED 0 June 20, 2023 12:00am [id number] actuat albuterol 0.09 mg/actuat metered dose [...] on above: INHALE 2 PUFFS BY [facility] EVERY 6 HOURS NEEDED FOR [...] on above: Take 2 capsules by m [facility] once daily. collagen, bovine, 100 % powd [...] on above: Take 1 capsule by mo [facility] twice daily for 180 days. Morning and bedtime Take 1 capsule by mo [facility] two times a day for 180 days. [...] is over 200. 10/21/2024 Active lactobacillus acidophilus [id number] unt oral capsule (20 sources) Start: 11-23-19 End: 03-18-20 24 take 1 capsule by mouth once daily Acidophilus-Bif Animalis 10 billion cell cap Take 1 capsule by mouth once daily. 90 capsule 3 03/18/2024 Active Comment on above: Take 1 capsule by [facility] once daily. LORazepam 1 mg oral tablet [...] long-term current use of insulin multivitamin-folic acid-biotin (ZGLB-OLJJ-NVUBE, YR-FP-GBYXSS,) 400-2,000 mcg tab (20 sources) multivitamin-fol ic acid-biotin (FHDL-RAXN-ZPRKR, SQ-BV-FNNPLV,) 400-2,000 mcg tab Take by mouth. Active multivitamin-fol ic acid-biotin (BYTH-AHSO-DAJPT, HV-KK-ISEQYT,) 400-2,000 mcg tab Take by mouth. 0 [...] right foot, initial encounter , Contusion of moravian region, initial encounter , Injury of coccyx, [...] right foot, initial encounter , Contusion of moravian region, initial encounter , Injury of coccyx, [...] on above: Take 1 capsule by [facility] once daily. Take with food cephalexin 250 [...] Take 1 tablet by joe twice daily. Jeekkmbl-Tsb-Ortbj Acid-Biotin (Hair,Skin And Nails(Fa-Biotin)) 66.7-1,000 mcg tablet (7 sources) Start: 03-15-20 End: 06-10-20 take 66.7-1000 ug by mouth once Dkxvnedq-Vjb-Svkgk Acid-Biotin (Hair,Skin And Nails(Fa-Biotin)) 66.7-1,000 mcg tablet Discontinued TABLET PO March 14, 2021 11:00pm June 10, 2023 5:28pm Start: 03-15-2021 End: 06-10-2023 take 66.7-1000 ug by mouth once Fcvctahc-Zib-Tlbov Acid-Biotin (Hair,Skin And Nails(Fa-Biotin)) 66.7-1,000 mcg tablet Discontinued TABLET PO March 15, 2021 12:00am June 10, 2023 6:28pm Start: 03-15-2021 take 66.7-1000 ug by mouth once Nqxlhnhx-Xjc-Deile Acid-Biotin (Hair,Skin And Nails(Fa-Biotin)) 66.7-1,000 mcg tablet [...] on above: Take 1 capsule by mo [facility] twice daily for 180 days. 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] Onset: 5 Episodic Other [...] Visit Reporton 05-29-2025 Endocrinology Visit Report Normal [facility] Office Visit Reporton 2024 Office Visit Report Normal [facility] Office Visit Reporton 2024 Office Visit Report Normal [facility] Office Visit Report Normal [facility] Office Visit Reporton 2024 Office Visit Report Normal [facility] Internal Medicine Office Vis iton 05-04-2025 Internal Medicine Office Visit Normal [facility] Office Visit Reporton 2024 Office Visit Report Normal [facility] Office Visit Reporton 2024 Office Visit Report Normal [facility] Bedside Glucoseon 04-09-2025 FINGERSTICK GLU 342 mg/dL High 74-106 [facility] Comment on above: Result Comment: OLGA GEMENT OF PATIENT CARE PER NURSING PROTOCOL Performed By: #### L 501.080 ####[facility] [address] [place], [address] FINGERSTICK GLU 322 mg/dL High 74-106 [facility] Comment on above: Result Comment: OLGA GEMENT OF PATIENT CARE PER NURSING PROTOCOL Performed By: #### L 501.080 ####[facility] [address] [place], [address] Phosphoruson 04-09-2025 Phosphate [Mass/Vol] 4.2 mg/dL Normal 2.7-4.5 [facility] Comment on above: Performed By: #### L 501.2300 ####[facility] [address] [place], [address] Urine Cultureon 04-09-2025 URC Normal [facility] Comment on above: Performed By: #### M 100.2200 ####[facility] [address] [place], [address] Bedside Glucoseon 04-08-2025 FINGERSTICK GLU 312 mg/dL High 74-106 [facility] Comment on above: Result Comment: OLGA GEMENT OF PATIENT CARE PER NURSING PROTOCOL Performed By: #### L 501.080 ####[facility] [address] [place], [address] FINGERSTICK GLU 357 mg/dL High [address] [place] [address] Comment on above: Result Comment: OLGA GEMENT OF PATIENT CARE PER NURSING PROTOCOL Performed By: #### L 501.080 ####[facility] [address] [place], [address] FINGERSTICK GLU 319 mg/dL High [facility]106 [facility] Comment on above: Result Comment: OLGA GEMENT OF PATIENT CARE PER NURSING PROTOCOL Performed By: #### L 501.080 ####[facility] [address] [place], [address] FINGERSTICK GLU 189 mg/dL High [address] [place] [address] Comment on above: Result Comment: OLGA GEMENT OF PATIENT CARE PER NURSING PROTOCOL Performed By: #### L 501.080 ####[facility] [address] [place], [address] FINGERSTICK GLU 201 mg/dL High [facility]106 [facility] Comment on above: Result Comment: OLGA GEMENT OF PATIENT CARE PER NURSING PROTOCOL Performed By: #### L 501.080 ####[facility] [address] [place], [address] CBC W/Diff, Automatedon 08-2 -2024 Absolute Lymph 2.11 X10 3/uL Normal 0.83-4.51 [facility] Comment on above: Performed By: #### L 500.4050, L501.9520, L501.2300, L100.0100 ####[facility] [address] [place], [address] Absolute Neut 5.0 X10 3/uL Normal 2.0-7.7 [facility] Comment on above: Performed By: #### L 500.4050, L501.9520, L501.2300, L100.0100 ####[facility] [address] [place], [address] Basophils/100 WBC (Bld) 0.4 % Normal 0-1 [facility] Comment on above: Performed By: #### L 500.4050, L501.9520, L501.2300, L100.0100 ####[facility] [address] [place], [address] Eosinophils/100 WBC (Bld) 3.8 % Normal 0-5 [facility] Comment on above: Performed By: #### L 500.4050, L501.9520, L501.2300, L100.0100 ####[facility] [address] [place], [address] Erythrocyte distribution width (RBC) [Ratio] 12.8 % Normal 11.6-14.6 [facility] Comment on above: Performed By: #### L 500.4050, [id number], L501.2300, L100.0100 ####[facility] [address] [place], [address] Hematocrit (Bld) [Volume fraction] 32.1 % Low 37-47 [facility] Comment on above: Performed By: #### L 500.4050, [id number], L501.2300, L100.0100 ####[facility] [address] [place], [address] Hemoglobin (Bld) [Mass/Vol] 11.0 g/dL Low 12.0-15.0 [facility] Comment on above: Performed By: #### L 500.4050, [id number], L501.2300, L100.0100 ####[facility] [address] [place], [address] IG% 0.200 Normal 0.0-0.9 [facility] Comment on above: Result Comment: IG% - Immature Granulocytes (promyelocytes, myelocytes andmetamyelocytes) > 1% indicates that a LEFT SHIFT is Present. Performed By: #### L 500.4050, L501.9520, L501.2300, L100.0100 ####[facility] [address] [place], [address] Lymphocytes/100 WBC (Bld) 26.0 % Normal 19-41 [facility] Comment on above: Performed By: #### L 500.4050, [id number], L501.2300, L100.0100 ####[facility] [address] [place], [address] MCH (RBC) [Entitic mass] 30.7 pg Normal 27.0-32.0 [facility] Comment on above: Performed By: #### L 500.4050, [id number], L501.2300, L100.0100 ####[facility] [address] [place], [address] MCHC (RBC) [Mass/Vol] 34.3 g/dL Normal 32-36 [facility] Comment on above: Performed By: #### L 500.4050, [id number], L501.2300, L100.0100 ####[facility] [address] [place], [address] MCV (RBC) [Entitic vol] 89.7 fL Normal 81-99 [facility] Comment on above: Performed By: #### L 500.4050, [id number], L501.2300, L100.0100 ####[facility] [address] [place], [address] Monocytes/100 WBC (Bld) 8.7 % Normal 0-10 [facility] Comment on above: Performed By: #### L 500.4050, [id number], L501.2300, L100.0100 ####[facility] [address] [place], [address] Neutrophils/100 WBC (Bld) 60.9 % Normal 47-70 [facility] Comment on above: Performed By: #### L 500.4050, [id number], L501.2300, L100.0100 ####[facility] [address] [place], [address] Nucleated RBC (Bld) [#/Vol] 0 10*3/uL Normal 0-5 [facility] Comment on above: Performed By: #### L 500.4050, [id number], L501.2300, L100.0100 ####[facility] [address] [place], [address] Platelet mean volume (Bld) [Entitic vol] 10.1 fL Normal 6.2-12.0 [facility] Comment on above: Performed By: #### L 500.4050, [id number], L501.2300, L100.0100 ####[facility] [address] [place], [address] Platelets (Bld) [#/Vol] 236 10*3/uL Normal 150-450 [facility] Comment on above: Performed By: #### L 500.4050, [id number], L501.2300, L100.0100 ####[facility] [address] [place], [address] RBC (Bld) [#/Vol] 3.58 10*6/uL Low 4.2-5.4 [facility] Comment on above: Performed By: #### L 500.4050, [id number], L501.2300, L100.0100 ####[facility] [address] [place], [address] RDW SD 42.1 fl Normal 35.1-43.9 [facility] Comment on above: Performed By: #### L 500.4050, [id number], L501.2300, L100.0100 ####[facility] [address] [place], [address] WBC (Bld) [#/Vol] 8.1 10*3/uL Normal 4.4-11.0 [facility] Comment on above: Performed By: #### L 500.4050, [id number], L501.2300, L100.0100 ####[facility] [address] [place], [address] Comprehensive Metabolic [facility] 04-08-2025 Albumin [Mass/Vol] 3.5 g/dL Normal 3.4-4.8 [facility] Comment on above: Performed By: #### L 500.4050, [id number], L501.2300, L100.0100 ####[facility] [address] [place], [address] Albumin/Globulin [Mass ratio] 1.4 {ratio} Normal 0.9-2.4 [facility] Comment on above: Performed By: #### L 500.4050, [id number], L501.2300, L100.0100 ####[facility] [address] [place], [address] ALK PHOS 107 U/L High 35-104 [facility] Comment on above: Performed By: #### L 500.4050, [id number], L501.2300, L100.0100 ####[facility] [address] [place], [address] ALT [Catalytic activity/Vol] 10 U/L Normal <=34 [facility] Comment on above: Performed By: #### L 500.4050, [id number], L501.2300, L100.0100 ####[facility] [address] [place], [address] AST [Catalytic activity/Vol] 12 U/L Normal <=31 [facility] Comment on above: Performed By: #### L 500.4050, [id number], L501.2300, L100.0100 ####[facility] [address] [place], [address] Bilirubin [Mass/Vol] 0.32 mg/dL Normal 0.00-1.30 [facility] Comment on above: Performed By: #### L 500.4050, [id number], L501.2300, L100.0100 ####[facility] [address] [place], [address] BUN/CRE 23.5 RATIO High 10-20 [facility] Comment on above: Performed By: #### L 500.4050, [id number], L501.2300, L100.0100 ####[facility] [address] [place], [address] Calcium [Mass/Vol] 8.6 mg/dL Normal 7.6-11.0 [facility] Comment on above: Performed By: #### L 500.4050, L501.9520, L501.2300, L100.0100 ####[facility] [address] [place], [address] Chloride [Moles/Vol] 106 mmol/L Normal 98-108 [facility] Comment on above: Performed By: #### L 500.4050, L501.9520, L501.2300, L100.0100 ####[facility] [address] [place], [address] CO2 [Moles/Vol] 24.1 mmol/L Normal 21.0-32.0 [facility] Comment on above: Performed By: #### L 500.4050, L501.9520, L501.2300, L100.0100 ####[facility] [address] [place], [address] Creatinine [Mass/Vol] 0.68 mg/dL Low 0.70-1.20 [facility] Comment on above: Performed By: #### L 500.4050, L501.9520, L501.2300, L100.0100 ####[facility] [address] [place], [address] ECRCL 47.57 ml/min Low 50-250 [facility] Comment on above: Performed By: #### L 500.4050, L501.9520, L501.2300, L100.0100 ####[facility] [address] [place], [address] GAP 10 Normal 5-15 [facility] Comment on above: Performed By: #### L 500.4050, L501.9520, L501.2300, L100.0100 ####[facility] [address] [place], [address] GFR/1.73 sq M.predicted among non-blacks MDRD (S/P/Bld) [Vol rate/Area] 87 mL/min/{1.73_m2} Normal >60 [facility] Comment on above: Result Comment: mL/m in/1.73m2 CKD-EPI Creatinine Equation (2020) Performed By: #### L 500.4050, L501.9520, L501.2300, L100.0100 ####[facility] [address] [place], [address] Globulin (S) [Mass/Vol] 2.6 g/dL Normal 2.2-4.2 [facility] Comment on above: Performed By: #### L 500.4050, L501.9520, L501.2300, L100.0100 ####[facility] [address] [place], [address] Glucose [Mass/Vol] 203 mg/dL High 70-99 [facility] Comment on above: Performed By: #### L 500.4050, L501.9520, L501.2300, L100.0100 ####[facility] [address] [place], [address] Potassium [Moles/Vol] 4.4 mmol/L Normal 3.3-5.1 [facility] Comment on above: Performed By: #### L 500.4050, L501.9520, L501.2300, L100.0100 ####[facility] [address] [place], [address] Sodium [Moles/Vol] 140 mmol/L Normal 133-145 [facility] Comment on above: Performed By: #### L 500.4050, L501.9520, L501.2300, L100.0100 ####[facility] [address] [place], [address] T PROT 6.1 g/dL Normal 5.9-8.4 [facility] Comment on above: Performed By: #### L 500.4050, L501.9520, L501.2300, L100.0100 ####[facility] [address] [place], [address] Urea nitrogen [Mass/Vol] 16 mg/dL Normal 4-19 [facility] Comment on above: Performed By: #### L 500.4050, L501.9520, L501.2300, L100.0100 ####[facility] [address] [place], [address] Free T3on 04-08-2025 Free T3 [Mass/Vol] 2.7 pg/mL Normal 2.18-3.98 [facility] Comment on above: Performed By: #### L 506.0400, L501.88791 ####[facility] [address] [place], [address] Phosphoruson 04-08-2025 Phosphate [Mass/Vol] 3.5 mg/dL Normal 2.7-4.5 [facility] Comment on above: Performed By: #### L 500.4050, L501.9520, L501.2300, L100.0100 ####[facility] [address] [place], [address] T4 Free Directon 04-08-2025 T4 FREE DIRECT 1.00 ng/dL Normal 0.76-1.46 [facility] Comment on above: Performed By: #### L 506.0400, L501.93737 ####[facility] [address] [place], [address] Thyroid Stim Hormone (TSH)on 04-08-2025 TSH 5.670 uIU/mL High 0.300-4.20 0 [facility] Comment on above: Performed By: #### L 500.4050, L501.9520, L501.2300, L100.0100 ####[facility] [address] [place], [address] 12 Lead EKGon 04-07-2025 12 Lead EKG Normal [facility] Basic Metabolic Profile (BMP )on 04-07-2025 BUN/CRE 29.8 RATIO High 10-20 [facility] Comment on above: Performed By: #### L 500.2500, L100.0100 ####[facility] [address] [place], [address] Calcium [Mass/Vol] 8.9 mg/dL Normal 7.6-11.0 [facility] Comment on above: Performed By: #### L 500.2500, L100.0100 ####[facility] [address] [place], [address] Chloride [Moles/Vol] 102 mmol/L Normal 98-108 [facility] Comment on above: Performed By: #### L 500.2500, L100.0100 ####[facility] [address] [place], [address] CO2 [Moles/Vol] 25.4 mmol/L Normal 21.0-32.0 [facility] Comment on above: Performed By: #### L 500.2500, L100.0100 ####[facility] [address] [place], [address] Creatinine [Mass/Vol] 0.76 mg/dL Normal 0.70-1.20 [facility] Comment on above: Performed By: #### L 500.2500, L100.0100 ####[facility] [address] [place], [address] ECRCL 48.60 ml/min Low 50-250 [facility] Comment on above: Performed By: #### L 500.2500, L100.0100 ####[facility] [address] [place], [address] GAP 11 Normal 5-15 [facility] Comment on above: Performed By: #### L 500.2500, L100.0100 ####[facility] [address] [place], [address] GFR/1.73 sq M.predicted among non-blacks MDRD (S/P/Bld) [Vol rate/Area] 78 mL/min/{1.73_m2} Normal >60 [facility] Comment on above: Result Comment: mL/m in/1.73m2 CKD-EPI Creatinine Equation (2020) Performed By: #### L 500.2500, L100.0100 ####[facility] [address] [place], [address] Glucose [Mass/Vol] 278 mg/dL High 70-99 [facility] Comment on above: Performed By: #### L 500.2500, L100.0100 ####[facility] [address] [place], [address] Potassium [Moles/Vol] 4.4 mmol/L Normal 3.3-5.1 [facility] Comment on above: Performed By: #### L 500.2500, L100.0100 ####[facility] [address] [place], [address] Sodium [Moles/Vol] 139 mmol/L Normal 133-145 [facility] Comment on above: Performed By: #### L 500.2500, L100.0100 ####[facility] [address] [place], [address] Urea nitrogen [Mass/Vol] 23 mg/dL High 4-19 [facility] Comment on above: Performed By: #### L 500.2500, L100.0100 ####[facility] [address] [place], [address] Brain/Head without Contrasto n 04-07-2025 Brain/Head without Contrast Normal [facility] CBC W/Diff, Automatedon - Absolute Lymph 1.48 X10 3/uL Normal 0.83-4.51 [facility] Comment on above: Performed By: #### L 500.2500, L100.0100 ####[facility] [address] [place], [address] Absolute Neut 6.3 X10 3/uL Normal 2.0-7.7 [facility] Comment on above: Performed By: #### L 500.2500, L100.0100 ####[facility] [address] [place], [address] Basophils/100 WBC (Bld) 0.5 % Normal 0-1 [facility] Comment on above: Performed By: #### L 500.2500, L100.0100 ####[facility] [address] [place], [address] Eosinophils/100 WBC (Bld) 3.6 % Normal 0-5 [facility] Comment on above: Performed By: #### L 500.2500, L100.0100 ####[facility] [address] [place], [address] Erythrocyte distribution width (RBC) [Ratio] 13.0 % Normal 11.6-14.6 [facility] Comment on above: Performed By: #### L 500.2500, L100.0100 ####[facility] [address] [place], [address] Hematocrit (Bld) [Volume fraction] 33.8 % Low 37-47 [facility] Comment on above: Performed By: #### L 500.2500, L100.0100 ####[facility] [address] [place], [address] Hemoglobin (Bld) [Mass/Vol] 11.6 g/dL Low 12.0-15.0 [facility] Comment on above: Performed By: #### L 500.2500, L100.0100 ####[facility] [address] [place], [address] IG% 0.100 Normal 0.0-0.9 [facility] Comment on above: Result Comment: IG% - Immature Granulocytes (promyelocytes, myelocytes andmetamyelocytes) > 1% indicates that a LEFT SHIFT is Present. Performed By: #### L 500.2500, L100.0100 ####[facility] [address] [place], [address] Lymphocytes/100 WBC (Bld) 17.0 % Low 19-41 [facility] Comment on above: Performed By: #### L 500.2500, L100.0100 ####[facility] [address] [place], [address] MCH (RBC) [Entitic mass] 30.9 pg Normal 27.0-32.0 [facility] Comment on above: Performed By: #### L 500.2500, L100.0100 ####[facility] [address] [place], [address] MCHC (RBC) [Mass/Vol] 34.3 g/dL Normal 32-36 [facility] Comment on above: Performed By: #### L 500.2500, L100.0100 ####[facility] [address] [place], [address] MCV (RBC) [Entitic vol] 89.9 fL Normal 81-99 [facility] Comment on above: Performed By: #### L 500.2500, L100.0100 ####[facility] [address] [place], [address] Monocytes/100 WBC (Bld) 7.1 % Normal 0-10 [facility] Comment on above: Performed By: #### L 500.2500, L100.0100 ####[facility] [address] [place], [address] Neutrophils/100 WBC (Bld) 71.7 % High 47-70 [facility] Comment on above: Performed By: #### L 500.2500, L100.0100 ####[facility] [address] [place], [address] Nucleated RBC (Bld) [#/Vol] 0 10*3/uL Normal 0-5 [facility] Comment on above: Performed By: #### L 500.2500, L100.0100 ####[facility] [address] [place], [address] Platelet mean volume (Bld) [Entitic vol] 10.3 fL Normal 6.2-12.0 [facility] Comment on above: Performed By: #### L 500.2500, L100.0100 ####[facility] [address] [place], [address] Platelets (Bld) [#/Vol] 262 10*3/uL Normal 150-450 [facility] Comment on above: Performed By: #### L 500.2500, L100.0100 ####[facility] [address] [place], [address] RBC (Bld) [#/Vol] 3.76 10*6/uL Low 4.2-5.4 [facility] Comment on above: Performed By: #### L 500.2500, L100.0100 ####[facility] [address] [place], [address] RDW SD 42.3 fl Normal 35.1-43.9 [facility] Comment on above: Performed By: #### L 500.2500, L100.0100 ####[facility] [address] [place], [address] WBC (Bld) [#/Vol] 8.7 10*3/uL Normal 4.4-11.0 [facility] Comment on above: Performed By: #### L 500.2500, L100.0100 ####[facility] [address] [place], [address] Chest 1 View (Portable)on Chest 1 View (Portable) Normal [facility] Emergency Department Summary on 04-07-2025 Emergency Department Summary Normal [facility] H AND P Exam - Hospitaliston 04-07-2025 H&P Exam - Hospitalist Normal [facility] Magnesiumon 04-07-2025 Magnesium [Mass/Vol] 1.8 mg/dL Normal 1.5-2.2 [facility] Comment on above: Performed By: #### L 501.5200 ####[facility] [address] [place], [address] Spine Cervical without Contr ason 04-07-2025 Spine Cervical without Contras Normal [facility] Urinalysis, Completeon 04-07 BACTERIA 1+ /hpf Normal None Seen [facility] Comment on above: Order Comment: CLEAN CATCH Performed By: #### L 400.0001 ####[facility] [address] [place], [address] EPI,SQUAMOUS 25-50 SEEN Normal 5-10 [facility] Comment on above: Order Comment: CLEAN CATCH Performed By: #### L 400.0001 ####[facility] [address] [place], [address] YEAST 2+ /hpf Normal None Seen [facility] Comment on above: Order Comment: CLEAN CATCH Performed By: #### L 400.0001 ####[facility] [address] [place], [address] RBC 0-5 SEEN Normal 0-5 [facility] Comment on above: Order Comment: CLEAN CATCH Performed By: #### L 400.0001 ####[facility] [address] [place], [address] WBC 25-50 SEEN Normal 0-5 [facility] Comment on above: Order Comment: CLEAN CATCH Performed By: #### L 400.0001 ####[facility] [address] [place], [address] Mucus Ql (Urine sed) 0 SEEN Normal [facility] Comment on above: Order Comment: CLEAN CATCH Performed By: #### L 400.0001 ####[facility] [address] [place], [address] MR/PAT.ANEon 04-03-2025 MR/PAT.ANE Normal [facility] 12 Lead EKGon 04-02-2025 12 Lead EKG Normal [facility] MR/PAT.ANEon 04-02-2025 MR/PAT.ANE Normal [facility] Basic Metabolic Profile (BMP )on 04-01-2025 BUN/CRE 27.9 RATIO High - [facility] Comment on above: Performed By: #### L 100.0500, L500.2500 ####[facility] [address] [place], [address] Calcium [Mass/Vol] 9.3 mg/dL Normal 7.6-11.0 [facility] Comment on above: Performed By: #### L 100.0500, L500.2500 ####[facility] [address] [place], [address] Chloride [Moles/Vol] 104 mmol/L Normal 98-108 [facility] Comment on above: Performed By: #### L 100.0500, L500.2500 ####[facility] [address] [place], [address] CO2 [Moles/Vol] 26.5 mmol/L Normal 21.0-32.0 [facility] Comment on above: Performed By: #### L 100.0500, L500.2500 ####[facility] [address] [place], [address] Creatinine [Mass/Vol] 0.61 mg/dL Low 0.70-1.20 [facility] Comment on above: Performed By: #### L 100.0500, L500.2500 ####[facility] [address] [place], [address] GAP 12 Normal 5-15 [facility] Comment on above: Performed By: #### L 100.0500, L500.2500 ####[facility] [address] [place], [address] GFR/1.73 sq M.predicted among non-blacks MDRD (S/P/Bld) [Vol rate/Area] 89 mL/min/{1.73_m2} Normal >60 [facility] Comment on above: Result Comment: mL/m in/1.73m2 CKD-EPI Creatinine Equation (2020) Performed By: #### L 100.0500, L500.2500 ####[facility] [address] [place], [address] Glucose [Mass/Vol] 110 mg/dL High 70-99 [facility] Comment on above: Performed By: #### L 100.0500, L500.2500 ####[facility] [address] [place], [address] Potassium [Moles/Vol] 4.0 mmol/L Normal 3.3-5.1 [facility] Comment on above: Performed By: #### L 100.0500, L500.2500 ####[facility] [address] [place], [address] Sodium [Moles/Vol] 142 mmol/L Normal 133-145 [facility] Comment on above: Performed By: #### L 100.0500, L500.2500 ####[facility] [address] [place], [address] Urea nitrogen [Mass/Vol] 17 mg/dL Normal 4-19 [facility] Comment on above: Performed By: #### L 100.0500, L500.2500 ####[facility] [address] [place], [address] CBC-Complete Blood Cnt No Di ffon 04-01-2025 Erythrocyte distribution width (RBC) [Ratio] 12.9 % Normal 11.6-14.6 [facility] Comment on above: Performed By: #### L 100.0500, L500.2500 ####[facility] [address] [place], [address] Hematocrit (Bld) [Volume fraction] 36.5 % Low 37-47 [facility] Comment on above: Performed By: #### L 100.0500, L500.2500 ####[facility] [address] [place], [address] Hemoglobin (Bld) [Mass/Vol] 12.3 g/dL Normal 12.0-15.0 [facility] Comment on above: Performed By: #### L 100.0500, L500.2500 ####[facility] [address] [place], [address] MCH (RBC) [Entitic mass] 30.8 pg Normal 27.0-32.0 [facility] Comment on above: Performed By: #### L 100.0500, L500.2500 ####[facility] [address] [place], [address] MCHC (RBC) [Mass/Vol] 33.7 g/dL Normal 32-36 [facility] Comment on above: Performed By: #### L 100.0500, L500.2500 ####[facility] [address] [place], [address] MCV (RBC) [Entitic vol] 91.3 fL Normal 81-99 [facility] Comment on above: Performed By: #### L 100.0500, L500.2500 ####[facility] [address] [place], [address] Platelet mean volume (Bld) [Entitic vol] 10.3 fL Normal 6.2-12.0 [facility] Comment on above: Performed By: #### L 100.0500, L500.2500 ####[facility] [address] [place], [address] Platelets (Bld) [#/Vol] 287 10*3/uL Normal 150-450 [facility] Comment on above: Performed By: #### L 100.0500, L500.2500 ####[facility] [address] [place], [address] RBC (Bld) [#/Vol] 4.00 10*6/uL Low 4.2-5.4 [facility] Comment on above: Performed By: #### L 100.0500, L500.2500 ####[facility] [address] [place], [address] RDW SD 42.3 fl Normal 35.1-43.9 [facility] Comment on above: Performed By: #### L 100.0500, L500.2500 ####[facility] [address] [place], [address] WBC (Bld) [#/Vol] 7.9 10*3/uL Normal 4.4-11.0 [facility] Comment on above: Performed By: #### L 100.0500, L500.2500 ####[facility] [address] [place], [address] Hemoglobin A1con 04-01-2025 HbA1c (Bld) [Mass fraction] 8.5 % High <=5.6 [facility] Comment on above: Result Comment: Norm al < 5.7 % Prediabetic 5.7 - 6.4 % Diabetic >or= 6.5 % Please note range changes. Performed By: #### L 501.9985, L500.3400, L300.3900, L300.4310 ####[facility] [address] [place], [address] Liver Profileon 04-01-2025 Albumin [Mass/Vol] 4.1 g/dL Normal 3.4-4.8 [facility] Comment on above: Performed By: #### L 501.9985, L500.3400, L300.3900, L300.4310 ####[facility] [address] [place], [address] ALK PHOS 114 U/L High 35-104 [facility] Comment on above: Performed By: #### L 501.9985, L500.3400, L300.3900, L300.4310 ####[facility] [address] [place], [address] ALT [Catalytic activity/Vol] 15 U/L Normal <=34 [facility] Comment on above: Performed By: #### L 501.9985, L500.3400, L300.3900, L300.4310 ####[facility] [address] [place], [address] AST [Catalytic activity/Vol] 18 U/L Normal <=31 [facility] Comment on above: Performed By: #### L 501.9985, L500.3400, L300.3900, L300.4310 ####[facility] [address] [place], [address] Bilirubin [Mass/Vol] 0.41 mg/dL Normal 0.00-1.30 [facility] Comment on above: Performed By: #### L 501.9985, L500.3400, L300.3900, L300.4310 ####[facility] [address] [place], [address] Bilirubin.direct [Mass/Vol] 0.19 mg/dL Normal 0.00-0.30 [facility] Comment on above: Performed By: #### L 501.9985, L500.3400, L300.3900, L300.4310 ####[facility] [address] [place], [address] Globulin (S) [Mass/Vol] 2.9 g/dL Normal 2.2-4.2 [facility] Comment on above: Performed By: #### L 501.9985, L500.3400, L300.3900, L300.4310 ####[facility] [address] [place], [address] T PROT 7.0 g/dL Normal 5.9-8.4 [facility] Comment on above: Performed By: #### L 501.9985, L500.3400, L300.3900, L300.4310 ####[facility] [address] [place], [address] MR/BMS.BUSon 04-01-2025 MR/BMS.BUS Normal [facility] Partial Thromboplast Timeon 04-01-2025 aPTT Coag (Bld) [Time] 25.4 s Normal 24.1-36.2 [facility] Comment on above: Performed By: #### L 501.9985, L500.3400, L300.3900, L300.4310 ####[facility] [address] [place], [address] Prothrombin Time w/INRon INR Coag (PPP) [Relative time] 1.0 {INR} Normal [facility] Comment on above: Performed By: #### L 501.9985, L500.3400, L300.3900, L300.4310 ####[facility] [address] [place], [address] PT Coag (PPP) [Time] 13.3 s Normal 11.7-14.9 [facility] Comment on above: Performed By: #### L 501.9985, L500.3400, L300.3900, L300.4310 ####[facility] [address] [place], [address] Office Visit Reporton 2024 Office Visit Report Normal [facility] Neurology Visit Reporton Neurology Visit Report Normal [facility] Endocrinology Visit Reporton 02-19-2025 Endocrinology Visit Report Normal [facility] Office Visit Reporton 2024 Office Visit Report Normal [facility] Internal Medicine Office Vis iton 02-03-2025 Internal Medicine Office Visit Normal [facility] Office Visit Reporton 2024 Office Visit Report Normal [facility] MR/BMS.BPon 01-01-2025 MR/BMS.BP Normal [facility] CNPNon 12-18-2024 CNPN Telephone (INTMWS) ANA IVORY ([id number]) 1940 F Date Time Provider Department 12/18/24 ALICIA BLOUNT INTMWS During your visit today, we recorded the following information about you: Mansi Preston LPN 12/18/2024 11:26 AM Signed Shani from [facility] calling with plan of care [...] 12/29/2020 14 - Other: See Comments NEOSPORIN ([id number]-[id number]* 2 - Rash Comments: blisters PIOGLITAZONE 12/29/2020 [...] with dinner. Adjust as directed. (Dr. Genny Mungiua refjere) Also has SSI. - Insulin Stanton, Disposable, (BD ULTRA-FINE FOZIA PEN NEEDLE) 32 [...] daily. For 30 days - multivitamin-folic acid-biotin (LEZB-LXPO-KLLDE, VU-QR-CZRHQY,) 400-2,000 mcg tab Take by mouth. - [...] diabetic neuropathy, (more content not included)... [facility] (INTMWS[facility] ANA IVORY ([id number]) 1940 F Date Time Provider Department 12/15/24 ALICIA BLOUNT INTMWS During your visit today, we recorded the following information about you: Mansi Preston LPN 12/15/2024 11:27 AM Signed Shani from [facility] calling with OT plan of care, one visit this week. She will call back with new plan next week. No need for return call. Isabella Emerson APRN.RESOURCE SPECIALIST 12/15/2024 4:37 PM Signed Noted and agree. [...] 12/29/2020 14 - Other: See Comments NEOSPORIN (VRPHEGMC-VDBDYWEXDN-[id number]* 2 - Rash Comments: blisters PIOGLITAZONE 12/29/2020 [...] Munguia refjere) Also has SSI. - Insulin Stanton, Disposable, (BD ULTRA-FINE FOZIA PEN NEEDLE) 32 [...] daily. For 30 days - multivitamin-folic acid-biotin (FVPA-WDBH-WPKGG, TN-AE-UYIMAA,) 400-2,000 mcg tab Take by mouth. 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 [facility] Report[facility]24 Office Visit Report Normal [facility] Ribs Uni Min 3V w/PA Cheston 12-15-2024 Ribs Uni Min 3V w/PA Chest Normal [facility] Scapulaon 12-15-2024 Scapula Normal [facility] Internal Medicine Office Vis iton 12-12-2024 [facility] Telephone (INTMWS) ANA IVORY ([id number]) 1940 F Date Time Provider Department 12/10/24 [...] call back unless pcp disagrees. Isabella Emerson APRN.RESOURCE SPECIALIST 12/10/2024 3:36 PM Signed Noted, agree. Allergies [...] 12/29/2020 14 - Other: See Comments NEOSPORIN (UXEDAWSC-SOVZHTEQXE-TA* 2 - Rash Comments: blisters PIOGLITAZONE 12/29/2020 16 - Unknown PROTONIX (PANTOPRAZOLE) 01/13/2010 6 - Diarrhea RELAFEN (NABUMETONE) 03/22/2006 8 - GI Upset 11 - Vomiting SHRIMP 12/21/2021 8 - GI Upset ACTOS (PIOGLITAZONE HCL) 12/03/2016 7 - Swelling Date Reviewed: 07/15/2024 Reviewed by: Edwige Reyes LPN - Fully Assessed Reason for Visit: Delay of care- OT [facility] [Other] Prescriptions as of 12/11/2024 - [...] [place] refjere) Also has SSI. - Insulin Stanton, Disposable, (BD ULTRA-FINE FOZIA PEN NEEDLE) 32 [...] daily. For 30 days - multivitamin-folic acid-biotin (ISPV-SUMZ-SUFFT, IV-IL-BPJCKM,) 400-2,000 mcg tab Take by mouth. - [...] dose on menu) - Miscellaneous Medical [facility] [employer] (E08.40, Z79.4) Diabetes mellitus (more content not included)... Normal [facility] Basic Metabolic Profile (BMP )on 12-08-2024 BUN/CRE 16.5 RATIO Normal 10-20 [facility] Comment on above: Performed By: #### L 500.2500, L100.0100 ####[facility] [address] [place], [address] Calcium [Mass/Vol] 10.1 mg/dL Normal 7.6-11.0 [facility] Comment on above: Performed By: #### L 500.2500, L100.0100 ####[facility] [address] [place], [address] Chloride [Moles/Vol] 106 mmol/L Normal 98-108 [facility] Comment on above: Performed By: #### L 500.2500, L100.0100 ####[facility] [address] [place], [address] CO2 [Moles/Vol] 21.2 mmol/L Normal 21.0-32.0 [facility] Comment on above: Performed By: #### L 500.2500, L100.0100 ####[facility] [address] [place], [address] Creatinine [Mass/Vol] 1.35 mg/dL High 0.70-1.20 [facility] Comment on above: Performed By: #### L 500.2500, L100.0100 ####[facility] [address] [place], [address] GAP 12 Normal 5-15 [facility] Comment on above: Performed By: #### L 500.2500, L100.0100 ####[facility] [address] [place], [address] GFR/1.73 sq M.predicted among non-blacks MDRD (S/P/Bld) [Vol rate/Area] 39 mL/min/{1.73_m2} Low >60 [facility] Comment on above: Result Comment: mL/m in/1.73m2 CKD-EPI Creatinine Equation (2020) Performed By: #### L 500.2500, L100.0100 ####[facility] [address] [place], [address] Glucose [Mass/Vol] 99 mg/dL Normal 70-99 [facility] Comment on above: Performed By: #### L 500.2500, L100.0100 ####[facility] [address] [place], [address] Potassium [Moles/Vol] 3.9 mmol/L Normal 3.3-5.1 [facility] Comment on above: Performed By: #### L 500.2500, L100.0100 ####[facility] [address] [place], [address] Sodium [Moles/Vol] 140 mmol/L Normal 133-145 [facility] Comment on above: Performed By: #### L 500.2500, L100.0100 ####[facility] [address] [place], [address] Urea nitrogen [Mass/Vol] 22 mg/dL High 4-19 [facility] Comment on above: Performed By: #### L 500.2500, L100.0100 ####[facility] [address] [place], [address] CBC W/Diff, Automatedon 04-2 -2024 Absolute Lymph 1.28 X10 3/uL Normal 0.83-4.51 [facility] Comment on above: Performed By: #### L 500.2500, L100.0100 ####[facility] [address] [place], [address] Absolute Neut 4.6 X10 3/uL Normal 2.0-7.7 [facility] Comment on above: Performed By: #### L 500.2500, L100.0100 ####[facility] [address] [place], [address] Basophils/100 WBC (Bld) 0.9 % Normal 0-1 [facility] Comment on above: Performed By: #### L 500.2500, L100.0100 ####[facility] [address] [place], [address] Eosinophils/100 WBC (Bld) 4.1 % Normal 0-5 [facility] Comment on above: Performed By: #### L 500.2500, L100.0100 ####[facility] [address] [place], [address] Erythrocyte distribution width (RBC) [Ratio] 12.8 % Normal 11.6-14.6 [facility] Comment on above: Performed By: #### L 500.2500, L100.0100 ####[facility] [address] [place], [address] Hematocrit (Bld) [Volume fraction] 37.9 % Normal 37-47 [facility] Comment on above: Performed By: #### L 500.2500, L100.0100 ####[facility] [address] [place], [address] Hemoglobin (Bld) [Mass/Vol] 12.5 g/dL Normal 12.0-15.0 [facility] Comment on above: Performed By: #### L 500.2500, L100.0100 ####[facility] [address] [place], [address] IG% 0.300 Normal 0.0-0.9 [facility] Comment on above: Result Comment: IG% - Immature Granulocytes (promyelocytes, myelocytes andmetamyelocytes) > 1% indicates that a LEFT SHIFT is Present. Performed By: #### L 500.2500, L100.0100 ####[facility] [address] [place], [address] Lymphocytes/100 WBC (Bld) 18.9 % Low 19-41 [facility] Comment on above: Performed By: #### L 500.2500, L100.0100 ####[facility] [address] [place], [address] MCH (RBC) [Entitic mass] 31.8 pg Normal 27.0-32.0 [facility] Comment on above: Performed By: #### L 500.2500, L100.0100 ####[facility] [address] [place], [address] MCHC (RBC) [Mass/Vol] 33.0 g/dL Normal 32-36 [facility] Comment on above: Performed By: #### L 500.2500, L100.0100 ####[facility] [address] [place], [address] MCV (RBC) [Entitic vol] 96.4 fL Normal 81-99 [facility] Comment on above: Performed By: #### L 500.2500, L100.0100 ####[facility] [address] [place], [address] Monocytes/100 WBC (Bld) 8.5 % Normal 0-10 [facility] Comment on above: Performed By: #### L 500.2500, L100.0100 ####[facility] [address] [place], [address] Neutrophils/100 WBC (Bld) 67.3 % Normal 47-70 [facility] Comment on above: Performed By: #### L 500.2500, L100.0100 ####[facility] [address] [place], [address] Nucleated RBC (Bld) [#/Vol] 0 10*3/uL Normal 0-5 [facility] Comment on above: Performed By: #### L 500.2500, L100.0100 ####[facility] [address] [place], [address] Platelet mean volume (Bld) [Entitic vol] 12.6 fL High 6.2-12.0 [facility] Comment on above: Performed By: #### L 500.2500, L100.0100 ####[facility] [address] [place], [address] Platelets (Bld) [#/Vol] 155 10*3/uL Normal 150-450 [facility] Comment on above: Performed By: #### L 500.2500, L100.0100 ####[facility] [address] [place], [address] RBC (Bld) [#/Vol] 3.93 10*6/uL Low 4.2-5.4 [facility] Comment on above: Performed By: #### L 500.2500, L100.0100 ####[facility] [address] [place], [address] RDW SD 46.1 fl High 35.1-43.9 [facility] Comment on above: Performed By: #### L 500.2500, L100.0100 ####[facility] [address] [place], [address] WBC (Bld) [#/Vol] 6.8 10*3/uL Normal 4.4-11.0 [facility] Comment on above: Performed By: #### L 500.2500, L100.0100 ####[facility] [address] [place], [address] CNPNon 11-19-2024 [facility] Telephone (INTMWS) ANA IVORY ([id number]) 1940 F Date Time Provider Department 11/19/24 ALICIA BLOUNT INTWS During your visit today, we recorded the following information about you: Coby Reynolds, RN 11/19/2024 10:59 AM Signed Shani STEWART calling from [facility] to report plan of care for patient and occupational therapy will visit 2 times a week for 3 weeks. Patient has numbness and tingling on bilateral knees down to feet. Still can feel touch. Patient's Gabapentin was decreased by Dr. Pandya. Nurse Hardik is calling Dr. Pnadya's office to let them know. Nurse is scheduled to see patient tomorrow. No Call back needed unless questions MANNY Murray Terri, MASOUD.COLLEGE BASKETBALL COACH 11/20/2024 10:00 AM Signed Noted, [place] Allergies [...] 12/29/2020 14 - Other: See Comments NEOSPORIN (MIAEAAGO-DXLTFNXNNX-UX* 2 - Rash Comments: blisters PIOGLITAZONE 12/29/2020 [...] [place] refills) Also has SSI. - Insulin Stanton, Disposable, (BD ULTRA-FINE FOZIA PEN NEEDLE) 32 gauge x 5/32 Use one needle for each dose, 4 times daily. 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 - Pyridoxine HCl 250 mg tablet DAILY - DULoxetine (CYMBALTA) 60 mg capsule Take 1 capsule by mouth daily at bedtime. - flash glucose scanning reader (BokeccSTYLE DONTRELL 2 READER) - flash glucose sensor [...] daily. For 30 days - multivitamin-folic acid-biotin (CVZU-URFC-XGVCP, RD-KP-XPZFJG,) 400-2,000 mcg tab Take by mouth. - collagen, bovine, 100 % powd Apply to affected area. - Cranberry-Vitamin C-Vitamin E (CRANBERRY PLUS VITAMIN C) 140-100 mg cap Patient takes Cranberry with Vitamin C capsule that contains 15,000 mg Cranberry and 100mg V (more content not included)... Normal [facility] Neurology Visit Reporton Neurology Visit Report Normal [facility] C-Peptideon 11-05-2024 C PEPTIDE 1.0 ng/mL Low 1.1-4.4 [facility] Comment on above: Result Comment: C-Pe ptide reference interval is for fasting patients.Performed at: - [facility] [id number] Director: Marco Antonio Diaz PhD, Phone: [phone] Performed By: #### L 501.0100, L5004100, L3886.3050 ####[facility] [address] [place], [address] Glucoseon 11-03-2024 Glucose [Mass/Vol] 151 mg/dL High 70-99 [facility] Comment on above: Performed By: #### L 501.0100, L500.4100, L3100.7750 ####[facility] [address] [place], [address] Lipid Profileon 11-03-2024 CHOL:HDL 3.54 Normal [facility] Comment on above: Performed By: #### L 501.0100, L500.4100, L3100.7750 ####[facility] [address] [place], [address] Cholesterol [Mass/Vol] 157 mg/dL Normal <=200 [facility] Comment on above: Result Comment: Chol esterol level, Desirable <200 mg/dLBorderline high cholesterol 200-239 mg/dLHigh cholesterol >=240 mg/dLRecommendations of the NCEP Adult Treatment Panel for thefollowing risk-cutoff thresholds for the [place] [facility]. Performed By: #### L 501.0100, L500.4100, L3100.7750 ####[facility] [address] [place], [address] Cholesterol in HDL [Mass/Vol] 44 mg/dL Normal [facility] Comment on above: Result Comment: Jayda onal Cholesterol Education Program (NCEP) guidelines:<40 mg/dL: Low HDL-cholesterol (major risk factor for CHD)>= 60 mg/dL: High HDL-cholesterol (negative risk factor forCHD)HDL-cholesterol is affected by a number of factors, e.g.smoking, exercise, hormones, sex and age. Performed By: #### L 501.0100, L500.4100, L3100.7750 ####[facility] [address] [place], [address] Cholesterol in LDL [Mass/Vol] 74 mg/dL Normal [facility] Comment on above: Result Comment: Bord igisfq=276-515 mg/dL Higher Vjsh=923 mg/dL or greater Performed By: #### L 501.0100, L500.4100, L3100.7750 ####[facility] [address] [place], [address] Cholesterol in VLDL [Mass/Vol] 39 mg/dL Normal 5-40 [facility] Comment on above: Performed By: #### L 501.0100, L500.4100, L3100.7750 ####[facility] [address] [place], [address] Triglyceride [Mass/Vol] 196 mg/dL Normal [facility] Comment on above: Result Comment: The drugs N-Acetylcysteine and Metamizole may falselydepress this assay.Normal range: <150 mg/dLBorderline High: 150-199 mg/dLHigh: 200-499 mg/dLVery High: >500 mg/dL Performed By: #### L 501.0100, L500.4100, L3100.7750 ####[facility] [address] [place], [address] Thyroid Stim Hormone (TSH)on 11-03-2024 TSH 3.160 uIU/mL Normal 0.300-4.20 0 [facility] Comment on above: Performed By: #### L 501.9520 ####[facility] [address] [place], [address] Internal Medicine Office Vis iton 11-02-2024 Internal Medicine Office Visit Normal [facility] Basic Metabolic Profile (BMP )on 10-27-2024 BUN Normal 7-18 [facility] Comment on above: Result Comment: Canc elled via OM: Order cancelled - Patient discharged Performed By: #### L 500.2500, L100.0100 ####[facility] [address] [place], [address] BUN/CRE Normal 10-20 [facility] Comment on above: Result Comment: Canc elled via OM: Order cancelled - Patient discharged Performed By: #### L 500.2500, L100.0100 ####[facility] [address] [place], [address] Calcium Normal 8.5-10.1 [facility] Comment on above: Result Comment: Canc elled via OM: Order cancelled - Patient discharged Performed By: #### L 500.2500, L100.0100 ####[facility] [address] [place], [address] CL Normal 98-107 [facility] Comment on above: Result Comment: Canc elled via OM: Order cancelled - Patient discharged Performed By: #### L 500.2500, L100.0100 ####[facility] [address] [place], [address] CO2 Normal 21.0-32.0 [facility] Comment on above: Result Comment: Canc elled via OM: Order cancelled - Patient discharged Performed By: #### L 500.2500, L100.0100 ####[facility] [address] [place], [address] CREAT,SERUM Normal 0.55-1.02 [facility] Comment on above: Result Comment: Canc elled via OM: Order cancelled - Patient discharged Performed By: #### L 500.2500, L100.0100 ####[facility] [address] [place], [address] eGFR Normal >60 [facility] Comment on above: Result Comment: Canc elled via OM: Order cancelled - Patient discharged Performed By: #### L 500.2500, L100.0100 ####[facility] [address] [place], [address] EST GFR - AA Normal >60 [facility] Comment on above: Result Comment: Canc elled via OM: Order cancelled - Patient discharged Performed By: #### L 500.2500, L100.0100 ####[facility] [address] [place], [address] GAP Normal 5-15 [facility] Comment on above: Result Comment: Canc elled via OM: Order cancelled - Patient discharged Performed By: #### L 500.2500, L100.0100 ####[facility] [address] [place], [address] GLU Normal 74-106 [facility] Comment on above: Result Comment: Canc elled via OM: Order cancelled - Patient discharged Performed By: #### L 500.2500, L100.0100 ####[facility] [address] [place], [address] Potassium Normal 3.5-5.1 [facility] Comment on above: Result Comment: Canc elled via OM: Order cancelled - Patient discharged Performed By: #### L 500.2500, L100.0100 ####[facility] [address] [place], [address] Basic Metabolic Profile (BMP) Normal 136-145 [facility] Comment on above: Result Comment: Canc elled via OM: Order cancelled - Patient discharged Performed By: #### L 500.2500, L100.0100 ####[facility] [address] [place], [address] CBC W/Diff, Automatedon 03- Absolute Neut Normal 2.0-7.7 [facility] Comment on above: Result Comment: Canc elled via OM: Order cancelled - Patient discharged Performed By: #### L 500.2500, L100.0100 ####[facility] [address] [place], [address] HCT Normal 37-47 [facility] Comment on above: Result Comment: Canc elled via OM: Order cancelled - Patient discharged Performed By: #### L 500.2500, L100.0100 ####[facility] [address] [place], [address] HGB Normal 12.0-15.0 [facility] Comment on above: Result Comment: Canc elled via OM: Order cancelled - Patient discharged Performed By: #### L 500.2500, L100.0100 ####[facility] [address] [place], [address] MCH Normal 27.0-32.0 [facility] Comment on above: Result Comment: Canc elled via OM: Order cancelled - Patient discharged Performed By: #### L 500.2500, L100.0100 ####[facility] [address] [place], [address] MCHC Normal 32-36 [facility] Comment on above: Result Comment: Canc elled via OM: Order cancelled - Patient discharged Performed By: #### L 500.2500, L100.0100 ####[facility] [address] [place], [address] MCV Normal 81-99 [facility] Comment on above: Result Comment: Canc elled via OM: Order cancelled - Patient discharged Performed By: #### L 500.2500, L100.0100 ####[facility] [address] [place], [address] NEUT% Normal 47-70 [facility] Comment on above: Result Comment: Canc elled via OM: Order cancelled - Patient discharged Performed By: #### L 500.2500, L100.0100 ####[facility] [address] [place], [address] PLT Normal 150-450 [facility] Comment on above: Result Comment: Canc elled via OM: Order cancelled - Patient discharged Performed By: #### L 500.2500, L100.0100 ####[facility] [address] [place], [address] RBC Normal 4.2-5.4 [facility] Comment on above: Result Comment: Canc elled via OM: Order cancelled - Patient discharged Performed By: #### L 500.2500, L100.0100 ####[facility] [address] [place], [address] RDW CV Normal 11.6-14.6 [facility] Comment on above: Result Comment: Canc elled via OM: Order cancelled - Patient discharged Performed By: #### L 500.2500, L100.0100 ####[facility] [address] [place], [address] RDW SD Normal 35.1-43.9 [facility] Comment on above: Result Comment: Canc elled via OM: Order cancelled - Patient discharged Performed By: #### L 500.2500, L100.0100 ####[facility] [address] [place], [address] WBC Normal 4.4-11.0 [facility] Comment on above: Result Comment: Canc elled via OM: Order cancelled - Patient discharged Performed By: #### L 500.2500, L100.0100 ####[facility] [address] 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 Daughter said she had not given her mother the macrobid rx for 4 days, she did not know she was to continue taking the medication. Nurse had called Dr dining car conductor Sunday and was told patient to continue [...] 12/29/2020 14 - Other: See Comments NEOSPORIN (BRSIBQDM-XPXNZZDTBY-JC* 2 - Rash Comments: blisters PIOGLITAZONE 12/29/2020 [...] [place] refills) Also has SSI. - Insulin Stanton, Disposable, (BD ULTRA-FINE FOZIA PEN NEEDLE) 32 [...] by mouth (more content not included)... Normal [facility] Telephone (INTMWS) ANA IVORY ([id number]) 1940 F Date Time Provider Department 10/27/24 ALICIA BLOUNT INTMWS During your visit today, we recorded the following information about you: Eris Keene, RN 10/27/2024 1:28 PM Signed Shani- PAT- [facility]- phoned with OT update POC: will [...] 12/29/2020 14 - Other: See Comments NEOSPORIN (ACWYMUYB-XLEICOJUVW-EC* 2 - Rash Comments: blisters PIOGLITAZONE 12/29/2020 16 - Unknown PROTONIX (PANTOPRAZOLE) 01/13/2010 6 - Diarrhea RELAFEN (NABUMETONE) 03/22/2006 8 - GI Upset 11 - Vomiting SHRIMP 12/21/2021 8 - GI Upset ACTOS (PIOGLITAZONE HCL) 12/03/2016 7 - Swelling Date Reviewed: 07/15/2024 Reviewed by: Edwige Reyes LPN - Fully Assessed Reason for Visit: [facility] OT updated POC [Other] Prescriptions as of [...] [place] refills) Also has SSI. - Insulin Stanton, Disposable, (BD ULTRA-FINE FOZIA PEN NEEDLE) 32 [...] daily. For 30 days - multivitamin-folic acid-biotin (PHQE-WZXM-KRBVK, WU-NX-NHPXUV,) 400-2,000 mcg tab Take by mouth. 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 Normal [facility] 10-25-2024 NEMESION Telephone (FMIUNI) ANA IVORY ([id number]) 1940 F Date Time Provider Department 10/25/24 LIGIA SCHILLING FMIUNI During your visit today, we recorded the following information about you: Ligia Schilling DO 10/25/2024 3:06 PM Signed Received call from [facility] nurse regarding patient. Pt was [...] 12/29/2020 14 - Other: See Comments NEOSPORIN (WQRAVHAR-CDGUMXMNVC-FY* 2 - Rash Comments: blisters PIOGLITAZONE 12/29/2020 [...] [place] refills) Also has SSI. - Insulin Stanton, Disposable, (BD ULTRA-FINE FOZIA PEN NEEDLE) 32 [...] daily. For 30 days - multivitamin-folic acid-biotin (HQEF-CGKG-FGNUS, UE-DT-EHQHUU,) 400-2,000 mcg tab Take by mouth. - [...] find 1500mcg (more content not included)... Normal [facility] 10-24-2024 CNPN Telephone (INTMWS) ANA IVORY ([id number]) 1940 F Date Time Provider Department 10/24/24 ALICIA BLOUNT INTMWS During your visit today, we recorded the following information about you: Anne Rivera, RN 10/24/2024 11:18 AM Signed Karina nurse with [facility] calls to let provider know that [...] of Macrobid? Karina requests call back at [phone]. Please review and advise, MANNY Griggs Liza [...] of Macrobid? Message left for Karina with [facility] to notify that patient should be taking [...] 12/29/2020 14 - Other: See Comments NEOSPORIN (ECVCADNH-QFPXINWNXR-UU* 2 - Rash Comments: blisters PIOGLITAZONE 12/29/2020 [...] [place] refjere) Also has SSI. - Insulin Stanton, Disposable, (BD ULTRA-FINE FOZIA PEN NEEDLE) 32 gauge x 5/32 Use one needle for each dose, 4 times daily. 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 - Pyridoxine HC (more content not included)... Normal [facility]20[facility]INT[facility] ANA IVORY ([id number]) 1940 F Date Time Provider Department 10/23/24 ALICIA BLOUNT INTMWS During your visit today, we recorded the following information about you: Mansi Preston LPN 10/23/2024 4:22 PM Signed Rhina from [facility] calling she has completed patient ST eval and plan to work on swallowing therapy, 2 visits weekly for 2 weeks. No need to return call. Isabella Emerson APRN.[facility] 10/24/2024 7:23 AM Signed Noted. Allergies [...] 12/29/2020 14 - Other: See Comments NEOSPORIN (TMUPMLKP-KFIBVAMHPW-RF* 2 - Rash Comments: blisters PIOGLITAZONE 12/29/2020 [...] Munguia refills) Also has SSI. - Insulin Stanton, Disposable, (BD ULTRA-FINE FOZIA PEN NEEDLE) 32 [...] daily. For 30 days - multivitamin-folic acid-biotin (DZAL-OTVS-CVCKZ, BR-BJ-CLRVKZ,) 400-2,000 mcg tab Take by mouth. - [...] dose on menu) - Miscellaneous [facility] (E08.40, Z79.4) Diabetes mellitus due to underlying condition with diabetic neuropathy, with long-term current use of (more content not included)... Normal [facility] Basic Metabolic Profile (BMP )on 10-20-2024 BUN Normal 7-18 [facility] Comment on above: Result Comment: Canc elled via OM: Order cancelled - Patient discharged Performed By: #### L 100.0100, L500.2500 ####[facility] [address] [place], [address] BUN/CRE Normal 10-20 [facility] Comment on above: Result Comment: Canc elled via OM: Order cancelled - Patient discharged Performed By: #### L 100.0100, L500.2500 ####[facility] [address] [place], [address] Calcium Normal 8.5-10.1 [facility] Comment on above: Result Comment: Canc elled via OM: Order cancelled - Patient discharged Performed By: #### L 100.0100, L500.2500 ####[facility] [address] [place], [address] CL Normal 98-107 [facility] Comment on above: Result Comment: Canc elled via OM: Order cancelled - Patient discharged Performed By: #### L 100.0100, L500.2500 ####[facility] [address] [place], [address] CO2 Normal 21.0-32.0 [facility] Comment on above: Result Comment: Canc elled via OM: Order cancelled - Patient discharged Performed By: #### L 100.0100, L500.2500 ####[facility] [address] [place], [address] CREAT,SERUM Normal 0.55-1.02 [facility] Comment on above: Result Comment: Canc elled via OM: Order cancelled - Patient discharged Performed By: #### L 100.0100, L500.2500 ####[facility] [address] [place], [address] eGFR Normal >60 [facility] Comment on above: Result Comment: Canc elled via OM: Order cancelled - Patient discharged Performed By: #### L 100.0100, L500.2500 ####[facility] [address] [place], [address] EST GFR - AA Normal >60 [facility] Comment on above: Result Comment: Canc elled via OM: Order cancelled - Patient discharged Performed By: #### L 100.0100, L500.2500 ####[facility] [address] [place], [address] GAP Normal 5-15 [facility] Comment on above: Result Comment: Canc elled via OM: Order cancelled - Patient discharged Performed By: #### L 100.0100, L500.2500 ####[facility] [address] [place], [address] GLU Normal 74-106 [facility] Comment on above: Result Comment: Canc elled via OM: Order cancelled - Patient discharged Performed By: #### L 100.0100, L500.2500 ####[facility] [address] [place], [address] Potassium Normal 3.5-5.1 [facility] Comment on above: Result Comment: Canc elled via OM: Order cancelled - Patient discharged Performed By: #### L 100.0100, L500.2500 ####[facility] [address] [place], [address] Basic Metabolic Profile (BMP) Normal 136-145 [facility] Comment on above: Result Comment: Canc elled via OM: Order cancelled - Patient discharged Performed By: #### L 100.0100, L500.2500 ####[facility] [address] [place], [address] CBC W/Diff, Automatedon 03- 0 Absolute Neut Normal 2.0-7.7 [facility] Comment on above: Result Comment: Canc elled via OM: Order cancelled - Patient discharged Performed By: #### L 100.0100, L500.2500 ####[facility] [address] [place], [address] HCT Normal 37-47 [facility] Comment on above: Result Comment: Canc elled via OM: Order cancelled - Patient discharged Performed By: #### L 100.0100, L500.2500 ####[facility] [address] [place], [address] HGB Normal 12.0-15.0 [facility] Comment on above: Result Comment: Canc elled via OM: Order cancelled - Patient discharged Performed By: #### L 100.0100, L500.2500 ####[facility] [address] [place], [address] MCH Normal 27.0-32.0 [facility] Comment on above: Result Comment: Canc elled via OM: Order cancelled - Patient discharged Performed By: #### L 100.0100, L500.2500 ####[facility] [address] [place], [address] MCHC Normal 32-36 [facility] Comment on above: Result Comment: Canc elled via OM: Order cancelled - Patient discharged Performed By: #### L 100.0100, L500.2500 ####[facility] [address] [place], [address] MCV Normal 81-99 [facility] Comment on above: Result Comment: Canc elled via OM: Order cancelled - Patient discharged Performed By: #### L 100.0100, L500.2500 ####[facility] [address] [place], [address] NEUT% Normal 47-70 [facility] Comment on above: Result Comment: Canc elled via OM: Order cancelled - Patient discharged Performed By: #### L 100.0100, L500.2500 ####[facility] [address] [place], [address] PLT Normal 150-450 [facility] Comment on above: Result Comment: Canc elled via OM: Order cancelled - Patient discharged Performed By: #### L 100.0100, L500.2500 ####[facility] [address] [place], [address] RBC Normal 4.2-5.4 [facility] Comment on above: Result Comment: Canc elled via OM: Order cancelled - Patient discharged Performed By: #### L 100.0100, L500.2500 ####[facility] [address] [place], [address] RDW CV Normal 11.6-14.6 [facility] Comment on above: Result Comment: Canc elled via OM: Order cancelled - Patient discharged Performed By: #### L 100.0100, L500.2500 ####[facility] [address] [place], [address] RDW SD Normal 35.1-43.9 [facility] Comment on above: Result Comment: Canc elled via OM: Order cancelled - Patient discharged Performed By: #### L 100.0100, L500.2500 ####[facility] [address] [place], [address] WBC Normal 4.4-11.0 [facility] Comment on above: Result Comment: Canc elled via OM: Order cancelled - Patient discharged Performed By: #### L 100.0100, L500.2500 ####[facility] [address] [place], [address] CNPNon 10-20-2024 [facility] ANA IVORY ([id number]) 1940 F Date Time Provider Department 10/20/24 ALICIA BLOUNT INTMWS During your visit today, we recorded the following information about you: Judith Renteria RN 10/20/2024 4:02 PM Signed Hardik [facility] POC on Pt and reports [...] Dr. Genny Munguia (endo) Updated med list Junaa Muro LPN 10/21/2024 1:54 PM Signed Below [...] 12/29/2020 14 - Other: See Comments NEOSPORIN (NKEJOQDT-JGPVQZFSIU-GH* 2 - Rash Comments: blisters PIOGLITAZONE 12/29/2020 16 - Unknown PROTONIX (PANTOPRAZOLE) 01/13/2010 6 - Diarrhea RELAFEN (NABUMETONE) 03/22/2006 8 - GI Upset 11 - Vomiting SHRIMP 12/21/2021 8 - GI Upset ACTOS (PIOGLITAZONE HCL) 12/03/2016 7 - Swelling Date Reviewed: 07/15/2024 Reviewed by: Edwige Reyes LPN - Fully Assessed Reason for Visit: Home Health Point of Care Results [0912] Order(s):insulin 75/25 lispro protamine-lispro units/mL (HUMALOG MIX 75-25,U-100,INSULN) 100 units/mL [id number] units TID and a sliding scale s-- [...] Units daily (more content not included)... Normal [facility] Endocrinology Visit Reporton 10-20-2024 Endocrinology Visit Report Normal [facility] Urine Cultureon 10-19-2024 URC Yeast, not Shanna a lbicans [place] Count 50,000-80,000 Normal [facility] Comment on above: Performed By: #### L 400.0001, M100.2200 ####[facility] [address] [place], [place], [id number] Bedside Glucoseon 10-17-2024 FINGERSTICK GLU 380 mg/dL High 74-106 [facility] Comment on above: Result Comment: OLGA GOMEZ OF PATIENT CARE PER NURSING PROTOCOL Performed By: #### L 501.080 ####[facility] [address] [place], [place], [address] FINGERSTICK GLU 178 mg/dL High 74-106 [facility] Comment on above: Result Comment: OLGA ALAMOJOSEPH OF PATIENT CARE PER NURSING PROTOCOL Performed By: #### L 501.080 ####[facility] [address] [place], [place], [address] CNPNon 10-17-2024 [facility] (INT[facility] ANA IVORY ([id number]) 1940 F Date Time Provider Department 10/17/24 ALICIA BLOUNT INTMWS During your visit today, we recorded the following information about you: Judith Renteria RN 10/17/2024 2:59 PM Signed [facility] called in and reports Pt was [...] Called and left a detailed voicemail notifying [facility] of providers message. Clinic phone number [...] 12/29/2020 14 - Other: See Comments NEOSPORIN (ZJGKTFZX-PEDUPXEYEX-ZK* 2 - Rash Comments: blisters PIOGLITAZONE 12/29/2020 [...] bedtime. (Dr. Genny Munguia refills) - Insulin Stanton, Disposable, (BD ULTRA-FINE FOZIA PEN NEEDLE) 32 [...] daily. For 30 days - multivitamin-folic acid-biotin (GTWH-TYMM-EJGUS, EN-OL-NPIKAB,) 400-2,000 mcg tab Take by mouth. - collagen, bovine, 100 % powd Apply to affected area. - Cranberry-Vitamin C-Vitamin E (CRANBERRY PLUS VITAMIN C) 140-100 mg cap Patient takes Cranberry with Vitamin C capsule that contains 15,000 mg Cranberry and 100mg Vitamin C - Biotin 2,500 mcg cap Nurse reports patient taking 150 (more content not included)... Normal [facility] Urinalysis, Completeon 10-17 AMORPHOUS 1+ URATE Normal [facility] Comment on above: Order Comment: KEYANA TER SPECIMEN Performed By: #### L 400.0001, M1.2199 ####[facility] [address] [place], [address] BACTERIA 2+ /hpf Normal None Seen [facility] Comment on above: Order Comment: KEYANA TER SPECIMEN Performed By: #### L 400.0001, .2199 ####[facility] [address] [place], [address] EPI,SQUAMOUS 0-5 SEEN Normal 5-10 [facility] Comment on above: Order Comment: KEYANA TER SPECIMEN Performed By: #### L 400.0001, .2199 ####[facility] [address] [place], [address] RBC 0-5 SEEN Normal 0-5 [facility] Comment on above: Order Comment: KEYANA TER SPECIMEN Performed By: #### L 400.0001, .2199 ####[facility] [address] [place], [address] WBC 50-100 SEEN Normal 0-5 [facility] Comment on above: Order Comment: KEYANA TER SPECIMEN Performed By: #### L 400.0001, ####[facility] [address] [place], [address] Bedside Glucoseon 10-16-2024 FINGERSTICK GLU 306 mg/dL High 74-106 [facility] Comment on above: Result Comment: OLGA GEMENT OF PATIENT CARE PER NURSING PROTOCOL Performed By: #### L 501.080 ####[facility] [address] [place], [address] FINGERSTICK GLU 243 mg/dL High 74-106 [facility] Comment on above: Result Comment: OLGA GEMENT OF PATIENT CARE PER NURSING PROTOCOL Performed By: #### L 501.080 ####[facility] [address] [place], [address] FINGERSTICK GLU 373 mg/dL High 74-106 [facility] Comment on above: Result Comment: OLGA GEMENT OF PATIENT CARE PER NURSING PROTOCOL Performed By: #### L 501.080 ####[facility] [address] [place], [address] FINGERSTICK GLU 102 mg/dL Normal 74-106 [facility] Comment on above: Result Comment: OLGA GEMENT OF PATIENT CARE PER NURSING PROTOCOL Performed By: #### L 501.080 ####[facility] [address] [place], [address] FINGERSTICK GLU 83 mg/dL Normal 74-106 [facility] Comment on above: Result Comment: OLGA GEMENT OF PATIENT CARE PER NURSING PROTOCOL Performed By: #### L 501.080 ####[facility] [address] [place], [address] FINGERSTICK GLU 155 mg/dL High 74-106 [facility] Comment on above: Result Comment: OLGA GEMENT OF PATIENT CARE PER NURSING PROTOCOL Performed By: #### L 501.080 ####[facility] [address] [place], [address] Urinalysis, Completeon 10-16 Mucus Ql (Urine sed) 0 SEEN Normal [facility] Comment on above: Order Comment: KEYANA TER SPECIMEN Performed By: #### L 400.0001, M100.2200 ####[facility] [address] [place], [address] Bedside Glucoseon 10-15-2024 FINGERSTICK GLU 259 mg/dL High 74-106 [facility] Comment on above: Result Comment: OLGA GEMENT OF PATIENT CARE PER NURSING PROTOCOL Performed By: #### L 501.080 ####[facility] [address] [place], [address] FINGERSTICK GLU 219 mg/dL High 74-106 [facility] Comment on above: Result Comment: OLGA GEMENT OF PATIENT CARE PER NURSING PROTOCOL Performed By: #### L 501.080 ####[facility] [address] [place], [address] FINGERSTICK GLU 241 mg/dL High 74-106 [facility] Comment on above: Result Comment: OLGA GEMENT OF PATIENT CARE PER NURSING PROTOCOL Performed By: #### L 501.080 ####[facility] [address] [place], [address] FINGERSTICK GLU 76 mg/dL Normal 74-106 [facility] Comment on above: Result Comment: OLGA GEMENT OF PATIENT CARE PER NURSING PROTOCOL Performed By: #### L 501.080 ####[facility] [address] [place], [address] Bedside Glucoseon 10-14-2024 FINGERSTICK GLU 168 mg/dL High -106 [facility] Comment on above: Result Comment: OLGA GEMENT OF PATIENT CARE PER NURSING PROTOCOL Performed By: #### L 501.080 ####[facility] [address] [place], [address] FINGERSTICK GLU 179 mg/dL High -[address] [place] [address] Comment on above: Result Comment: OLGA GEMENT OF PATIENT CARE PER NURSING PROTOCOL Performed By: #### L 501.080 ####[facility] [address] [place], [address] FINGERSTICK GLU 192 mg/dL High -106 [facility] Comment on above: Result Comment: OLGA GEMENT OF PATIENT CARE PER NURSING PROTOCOL Performed By: #### L 501.080 ####[facility] [address] [place], [address] FINGERSTICK GLU 96 mg/dL Normal -106 [facility] Comment on above: Result Comment: OLGA GEMENT OF PATIENT CARE PER NURSING PROTOCOL Performed By: #### L 501.080 ####[facility] [address] [place], [address] FINGERSTICK GLU 84 mg/dL Normal 74-106 [facility] Comment on above: Result Comment: OLGA GOMEZ OF PATIENT CARE PER NURSING PROTOCOL Performed By: #### L 501.080 ####[facility] [address] [place], [address] Basic Metabolic Profile (BMP )on 10-13-2024 Anion gap [Moles/Vol] 12 mmol/L Normal 5-15 [facility] Comment on above: Performed By: #### L 500.2500 ####[facility] [address] [place], [address] BUN/CRE 26.2 RATIO High 10-20 [facility] Comment on above: Performed By: #### L 500.2500 ####[facility] [address] [place], [address] Calcium [Mass/Vol] 9.2 mg/dL Normal 7.6-11.0 [facility] Comment on above: Performed By: #### L 500.2500 ####[facility] [address] [place], [address] Chloride [Moles/Vol] 105 mmol/L Normal 96-108 [facility] Comment on above: Performed By: #### L 500.2500 ####[facility] [address] [place], [address] CO2 [Moles/Vol] 23.6 mmol/L Normal 22.0-29.0 [facility] Comment on above: Performed By: #### L 500.2500 ####[facility] [address] [place], [address] Creatinine [Mass/Vol] 0.81 mg/dL Normal 0.70-1.20 [facility] Comment on above: Performed By: #### L 500.2500 ####[facility] [address] [place], [address] ECRCL 48.72 ml/min Low 50-250 [facility] Comment on above: Performed By: #### L 500.2500 ####[facility] [address] [place], [address] GFR/1.73 sq M.predicted among non-blacks MDRD (S/P/Bld) [Vol rate/Area] 73 mL/min/{1.73_m2} Normal >60 [facility] Comment on above: Result Comment: mL/m in/1.73m2 CKD-EPI Creatinine Equation (2020) Performed By: #### L 500.2500 ####[facility] [address] [place], [address] Glucose [Mass/Vol] 176 mg/dL High 70-99 [facility] Comment on above: Performed By: #### L 500.2500 ####[facility] [address] [place], [address] Potassium [Moles/Vol] 3.9 mmol/L Normal 3.3-5.1 [facility] Comment on above: Performed By: #### L 500.2500 ####[facility] [address] [place], [address] Sodium [Moles/Vol] 140 mmol/L Normal 133-145 [facility] Comment on above: Performed By: #### L 500.2500 ####[facility] [address] [place], [address] Urea nitrogen [Mass/Vol] 21 mg/dL High 4-19 [facility] Comment on above: Performed By: #### L 500.2500 ####[facility] [address] [place], [address] BUN Normal 7-18 [facility] Comment on above: Result Comment: WILL REORDER Performed By: #### L 500.2500, L100.0100 ####[facility] [address] [place], [address] BUN/CRE Normal 10-20 [facility] Comment on above: Result Comment: WILL REORDER Performed By: #### L 500.2500, L100.0100 ####[facility] [address] [place], [address] Calcium Normal 8.5-10.1 [facility] Comment on above: Result Comment: WILL REORDER Performed By: #### L 500.2500, L100.0100 ####[facility] [address] [place], [address] CL Normal 98-107 [facility] Comment on above: Result Comment: WILL REORDER Performed By: #### L 500.2500, L100.0100 ####[facility] [address] [place], [address] CO2 Normal 21.0-32.0 [facility] Comment on above: Result Comment: WILL REORDER Performed By: #### L 500.2500, L100.0100 ####[facility] [address] [place], [address] CREAT,SERUM Normal 0.55-1.02 [facility] Comment on above: Result Comment: WILL REORDER Performed By: #### L 500.2500, L100.0100 ####[facility] [address] [place], [address] eGFR Normal >60 [facility] Comment on above: Result Comment: WILL REORDER Performed By: #### L 500.2500, L100.0100 ####[facility] [address] [place], [address] EST GFR - AA Normal >60 [facility] Comment on above: Result Comment: WILL REORDER Performed By: #### L 500.2500, L100.0100 ####[facility] [facility] [address] [place], [address] GAP Normal 5-15 [facility] Comment on above: Result Comment: WILL REORDER Performed By: #### L 500.2500, L100.0100 ####[facility] [address] [place], [address] GLU Normal 74-106 [facility] Comment on above: Result Comment: WILL REORDER Performed By: #### L 500.2500, L100.0100 ####[facility] [address] [place], [address] Potassium Normal 3.5-5.1 [facility] Comment on above: Result Comment: WILL REORDER Performed By: #### L 500.2500, L100.0100 ####[facility] [address] [place], [address] Basic Metabolic Profile (BMP) Normal 136-145 [facility] Comment on above: Result Comment: WILL REORDER Performed By: #### L 500.2500, L100.0100 ####[facility] [address] [place], [address] Bedside Glucoseon 10-13-2024 FINGERSTICK GLU 188 mg/dL High 74-106 [facility] Comment on above: Result Comment: OLGA GEMENT OF PATIENT CARE PER NURSING PROTOCOL Performed By: #### L 501.080 ####[facility] [address] [place], [address] FINGERSTICK GLU 143 mg/dL High 74-106 [facility] Comment on above: Result Comment: OLGA GEMENT OF PATIENT CARE PER NURSING PROTOCOL Performed By: #### L 501.080 ####[facility] [address] [place], [address] FINGERSTICK GLU 268 mg/dL High 74-106 [facility] Comment on above: Result Comment: OLGA GEMENT OF PATIENT CARE PER NURSING PROTOCOL Performed By: #### L 501.080 ####[facility] [address] [place], [address] FINGERSTICK GLU 173 mg/dL High 74-106 [facility] Comment on above: Result Comment: OLGA GEMENT OF PATIENT CARE PER NURSING PROTOCOL Performed By: #### L 501.080 ####[facility] [address] [place], [address] CBC W/Diff, Automatedon 03-0 3-2024 Absolute Lymph 2.78 X10 3/uL Normal 0.83-4.51 [facility] Comment on above: Performed By: #### L 500.2500, L100.0100 ####[facility] [address] [place], [address] Absolute Neut 3.6 X10 3/uL Normal 2.0-7.7 [facility] Comment on above: Performed By: #### L 500.2500, L100.0100 ####[facility] [address] [place], [address] Basophils/100 WBC (Bld) 0.4 % Normal 0-1 [facility] Comment on above: Performed By: #### L 500.2500, L100.0100 ####[facility] [address] [place], [address] Eosinophils/100 WBC (Bld) 4.1 % Normal 0-5 [facility] Comment on above: Performed By: #### L 500.2500, L100.0100 ####[facility] [address] [place], [address] Erythrocyte distribution width (RBC) [Ratio] 13.2 % Normal 11.6-14.6 [facility] Comment on above: Performed By: #### L 500.2500, L100.0100 ####[facility] [address] [place], [address] Hematocrit (Bld) [Volume fraction] 34.1 % Low 37-47 [facility] Comment on above: Performed By: #### L 500.2500, L100.0100 ####[facility] [address] [place], [address] Hemoglobin (Bld) [Mass/Vol] 11.5 g/dL Low 12.0-15.0 [facility] Comment on above: Performed By: #### L 500.2500, L100.0100 ####[facility] [address] [place], [address] IG% 0.300 Normal 0.0-0.9 [facility] Comment on above: Result Comment: IG% - Immature Granulocytes (promyelocytes, myelocytes andmetamyelocytes) > 1% indicates that a LEFT SHIFT is Present. Performed By: #### L 500.2500, L100.0100 ####[facility] [address] [place], [address] Lymphocytes/100 WBC (Bld) 36.3 % Normal 19-41 [facility] Comment on above: Performed By: #### L 500.2500, L100.0100 ####[facility] [address] [place], [address] MCH (RBC) [Entitic mass] 31.3 pg Normal 27.0-32.0 [facility] Comment on above: Performed By: #### L 500.2500, L100.0100 ####[facility] [address] [place], [address] MCHC (RBC) [Mass/Vol] 33.7 g/dL Normal 32-36 [facility] Comment on above: Performed By: #### L 500.2500, L100.0100 ####[facility] [address] [place], [address] MCV (RBC) [Entitic vol] 92.7 fL Normal 81-99 [facility] Comment on above: Performed By: #### L 500.2500, L100.0100 ####[facility] [address] [place], [address] Monocytes/100 WBC (Bld) 11.9 % High 0-10 [facility] Comment on above: Performed By: #### L 500.2500, L100.0100 ####[facility] [address] [place], [address] Neutrophils/100 WBC (Bld) 47.0 % Normal 47-70 [facility] Comment on above: Performed By: #### L 500.2500, L100.0100 ####[facility] [address] [place], [address] Nucleated RBC (Bld) [#/Vol] 0 10*3/uL Normal 0-5 [facility] Comment on above: Performed By: #### L 500.2500, L100.0100 ####[facility] [address] [place], [address] Platelet mean volume (Bld) [Entitic vol] 10.4 fL Normal 6.2-12.0 [facility] Comment on above: Performed By: #### L 500.2500, L100.0100 ####[facility] [address] [place], [address] Platelets (Bld) [#/Vol] 210 10*3/uL Normal 150-450 [facility] Comment on above: Performed By: #### L 500.2500, L100.0100 ####[facility] [address] [place], [address] RBC (Bld) [#/Vol] 3.68 10*6/uL Low 4.2-5.4 [facility] Comment on above: Performed By: #### L 500.2500, L100.0100 ####[facility] [address] [place], [address] RDW SD 44.4 fl High 35.1-43.9 [facility] Comment on above: Performed By: #### L 500.2500, L100.0100 ####[facility] [address] [place], [address] WBC (Bld) [#/Vol] 7.7 10*3/uL Normal 4.4-11.0 [facility] Comment on above: Performed By: #### L 500.2500, L100.0100 ####[facility] [address] [place], [address] Bedside Glucoseon 10-12-2024 FINGERSTICK GLU 188 mg/dL High 74-106 [facility] Comment on above: Result Comment: OLGA GEMENT OF PATIENT CARE PER NURSING PROTOCOL Performed By: #### L 501.080 ####[facility] [address] [place], [address] FINGERSTICK GLU 208 mg/dL High 74-106 [facility] Comment on above: Result Comment: OLGA GEMENT OF PATIENT CARE PER NURSING PROTOCOL Performed By: #### L 501.080 ####[facility] [address] [place], [address] FINGERSTICK GLU 195 mg/dL High 74-106 [facility] Comment on above: Result Comment: OLGA GEMENT OF PATIENT CARE PER NURSING PROTOCOL Performed By: #### L 501.080 ####[facility] [address] [place], [address] FINGERSTICK GLU 97 mg/dL Normal 74-106 [facility] Comment on above: Result Comment: OLGA GEMENT OF PATIENT CARE PER NURSING PROTOCOL Performed By: #### L 501.080 ####[facility] [address] [place], [address] Bedside Glucoseon 03-01-2025 FINGERSTICK GLU 195 mg/dL High -[address] [place] [address] Comment on above: Result Comment: OLGA GEMENT OF PATIENT CARE PER NURSING PROTOCOL Performed By: #### L 501.080 ####[facility] [address] [place], [address] FINGERSTICK GLU 151 mg/dL High [address] [place] [address] Comment on above: Result Comment: OLGA GEMENT OF PATIENT CARE PER NURSING PROTOCOL Performed By: #### L 501.080 ####[facility] [address] [facility] [address] FINGERSTICK GLU 197 mg/dL High [address] [place] [address] Comment on above: Result Comment: OLGA GEMENT OF PATIENT CARE PER NURSING PROTOCOL Performed By: #### L 501.080 ####[facility] [address] [place], [address] FINGERSTICK GLU 196 mg/dL High [address] [place] [address] Comment on above: Result Comment: OLGA GEMENT OF PATIENT CARE PER NURSING PROTOCOL Performed By: #### L 501.080 ####[facility] [address] [place], [address] Bedside Glucoseon 10-10-2024 FINGERSTICK GLU 246 mg/dL High [address] [place] [address] Comment on above: Result Comment: OLGA GEMENT OF PATIENT CARE PER NURSING PROTOCOL Performed By: #### L 501.080 ####[facility] [address] [place], [address] FINGERSTICK GLU 283 mg/dL High [address] [place] [address] Comment on above: Result Comment: OLGA GEMENT OF PATIENT CARE PER NURSING PROTOCOL Performed By: #### L 501.080 ####[facility] [address] [place], [address] FINGERSTICK GLU 227 mg/dL High [address] [place] [address] Comment on above: Result Comment: OLGA GEMENT OF PATIENT CARE PER NURSING PROTOCOL Performed By: #### L 501.080 ####[facility] [address] [place], [address] FINGERSTICK GLU 112 mg/dL High [address] [place] [address] Comment on above: Result Comment: OLGA GEMENT OF PATIENT CARE PER NURSING PROTOCOL Performed By: #### L 501.080 ####[facility] [address] [place], [address] Bedside Glucoseon 10-09-2024 FINGERSTICK GLU 263 mg/dL High [address] [place] [address] Comment on above: Result Comment: OLGA GEMENT OF PATIENT CARE PER NURSING PROTOCOL Performed By: #### L 501.080 ####[facility] [address] [place], [address] FINGERSTICK GLU 221 mg/dL High [address] [place] [address] Comment on above: Result Comment: OLGA GEMENT OF PATIENT CARE PER NURSING PROTOCOL Performed By: #### L 501.080 ####[facility] [address] [place], [address] FINGERSTICK GLU 298 mg/dL High [address] [place] [address] Comment on above: Result Comment: OLGA GEMENT OF PATIENT CARE PER NURSING PROTOCOL Performed By: #### L 501.080 ####[facility] [address] [place], [address] FINGERSTICK GLU 181 mg/dL High [address] [place] [address] Comment on above: Result Comment: OLGA GEMENT OF PATIENT CARE PER NURSING PROTOCOL Performed By: #### L 501.080 ####[facility] [address] [place], [address] Bedside Glucoseon 10-08-2024 FINGERSTICK GLU 229 mg/dL High [address] [place] [address] Comment on above: Result Comment: OLGA GEMENT OF PATIENT CARE PER NURSING PROTOCOL Performed By: #### L 501.080 ####[facility] [address] [place], [address] FINGERSTICK GLU 207 mg/dL High 74-106 [facility] Comment on above: Result Comment: OLGA GEMENT OF PATIENT CARE PER NURSING PROTOCOL Performed By: #### L 501.080 ####[facility] [address] [place], [address] FINGERSTICK GLU 271 mg/dL High [facility]106 [facility] Comment on above: Result Comment: OLGA GEMENT OF PATIENT CARE PER NURSING PROTOCOL Performed By: #### L 501.080 ####[facility] [address] [place], [address] FINGERSTICK GLU 143 mg/dL High [address] [place] [address] Comment on above: Result Comment: OLGA GEMENT OF PATIENT CARE PER NURSING PROTOCOL Performed By: #### L 501.080 ####[facility] [address] [place], [address] Bedside Glucoseon 10-07-2024 FINGERSTICK GLU 137 mg/dL High [address] [place] [address] Comment on above: Result Comment: OLGA GEMENT OF PATIENT CARE PER NURSING PROTOCOL Performed By: #### L 501.080 ####[facility] [address] [place], [address] FINGERSTICK GLU 165 mg/dL High [address] [place] [address] Comment on above: Result Comment: OLGA GEMENT OF PATIENT CARE PER NURSING PROTOCOL Performed By: #### L 501.080 ####[facility] [address] [place], [address] FINGERSTICK GLU 324 mg/dL High [address] [place] [address] Comment on above: Result Comment: OLGA GEMENT OF PATIENT CARE PER NURSING PROTOCOL Performed By: #### L 501.080 ####[facility] [address] [place], [address] FINGERSTICK GLU 241 mg/dL High [facility]106 [facility] Comment on above: Result Comment: OLGA GEMENT OF PATIENT CARE PER NURSING PROTOCOL Performed By: #### L 501.080 ####[facility] [address] [place], [address] Basic Metabolic Profile (BMP )on 10-06-2024 BUN/CRE 30.6 RATIO High 10-20 [facility] Comment on above: Performed By: #### L 500.2500, L100.0100 ####[facility] [address] [place], [address] CA,Total 9.3 mg/dL Normal 8.5-10.1 [facility] Comment on above: Performed By: #### L 500.2500, L100.0100 ####[facility] [address] [place], [address] Chloride [Moles/Vol] 106 mmol/L Normal 98-107 [facility] Comment on above: Performed By: #### L 500.2500, L100.0100 ####[facility] [address] [place], [address] CO2 [Moles/Vol] 25.0 mmol/L Normal 21.0-32.0 [facility] Comment on above: Performed By: #### L 500.2500, L100.0100 ####[facility] [address] [place], [address] Creatinine [Mass/Vol] 0.75 mg/dL Normal 0.55-1.02 [facility] Comment on above: Result Comment: The validity of the calculated GFR GFRAA in patients over70 years has not been determined. Clinical correlation isessential. Performed By: #### L 500.2500, L100.0100 ####[facility] [address] [place], [address] ECRCL 49.46 ml/min Normal [facility] Comment on above: Performed By: #### L 500.2500, L100.0100 ####[facility] [address] [place], [address] EST GFR - AA 95 mL/min Normal >60 [facility] Comment on above: Result Comment: Afri can [place]une[place] GFR Calc Performed By: #### L 500.2500, L100.0100 ####[facility] [address] [place], [address] GAP 8 Normal 5-15 [facility] Comment on above: Performed By: #### L 500.2500, L100.0100 ####[facility] [address] [place], [address] GFR/1.73 sq M.predicted among non-blacks MDRD (S/P/Bld) [Vol rate/Area] 78 mL/min/{1.73_m2} Normal >60 [facility] Comment on above: Result Comment: Non- GFR Calc Performed By: #### L 500.2500, L100.0100 ####[facility] [address] [place], [address] Glucose [Mass/Vol] 179 mg/dL High 74-106 [facility] Comment on above: Result Comment: Fast ing Glucose result greater than or equal to 126 mg/dLsuggests DIABETES MELLITUS per A.D.A. criteria. Performed By: #### L 500.2500, L100.0100 ####[facility] [address] [place], [address] Potassium [Moles/Vol] 3.9 mmol/L Normal 3.5-5.1 [facility] Comment on above: Performed By: #### L 500.2500, L100.0100 ####[facility] [address] [place], [address] Sodium [Moles/Vol] 139 mmol/L Normal 136-145 [facility] Comment on above: Performed By: #### L 500.2500, L100.0100 ####[facility] [address] [place], [address] Urea nitrogen [Mass/Vol] 23 mg/dL High 7-18 [facility] Comment on above: Performed By: #### L 500.2500, L100.0100 ####[facility] [address] [place], [address] Bedside Glucoseon 10-06-2024 FINGERSTICK GLU 234 mg/dL High 74-106 [facility] Comment on above: Result Comment: OLGA GEMENT OF PATIENT CARE PER NURSING PROTOCOL Performed By: #### L 501.080 ####[facility] [address] [place], [address] FINGERSTICK GLU 225 mg/dL High 74-106 [facility] Comment on above: Result Comment: OLGA GEMENT OF PATIENT CARE PER NURSING PROTOCOL Performed By: #### L 501.080 ####[facility] [address] [place], [address] FINGERSTICK GLU 298 mg/dL High 74-106 [facility] Comment on above: Result Comment: OLGA GEMENT OF PATIENT CARE PER NURSING PROTOCOL Performed By: #### L 501.080 ####[facility] [address] [place], [address] FINGERSTICK GLU 183 mg/dL High 74-106 [facility] Comment on above: Result Comment: LOGA GEMENT OF PATIENT CARE PER NURSING PROTOCOL Performed By: #### L 501.080 ####[facility] [address] [place], [address] CBC W/Diff, Automatedon - Absolute Lymph 2.46 X10 3/uL Normal 0.83-4.51 [facility] Comment on above: Performed By: #### L 500.2500, L100.0100 ####[facility] [address] [place], [address] Absolute Neut 4.7 X10 3/uL Normal 2.0-7.7 [facility] Comment on above: Performed By: #### L 500.2500, L100.0100 ####[facility] [address] [place], [address] Basophils/100 WBC (Bld) 0.5 % Normal 0-1 [facility] Comment on above: Performed By: #### L 500.2500, L100.0100 ####[facility] [address] [place], [address] Eosinophils/100 WBC (Bld) 4.2 % Normal 0-5 [facility] Comment on above: Performed By: #### L 500.2500, L100.0100 ####[facility] [address] [place], [address] Erythrocyte distribution width (RBC) [Ratio] 12.9 % Normal 11.6-14.6 [facility] Comment on above: Performed By: #### L 500.2500, L100.0100 ####[facility] [address] [place], [address] Hematocrit (Bld) [Volume fraction] 36.2 % Low 37-47 [facility] Comment on above: Performed By: #### L 500.2500, L100.0100 ####[facility] [address] [place], [address] Hemoglobin (Bld) [Mass/Vol] 12.1 g/dL Normal 12.0-15.0 [facility] Comment on above: Performed By: #### L 500.2500, L100.0100 ####[facility] [address] [place], [address] IG% 0.200 Normal 0.0-0.9 [facility] Comment on above: Result Comment: IG% - Immature Granulocytes (promyelocytes, myelocytes andmetamyelocytes) > 1% indicates that a LEFT SHIFT is Present. Performed By: #### L 500.2500, L100.0100 ####[facility] [address] [place], [address] Lymphocytes/100 WBC (Bld) 28.9 % Normal 19-41 [facility] Comment on above: Performed By: #### L 500.2500, L100.0100 ####[facility] [address] [place], [address] MCH (RBC) [Entitic mass] 31.1 pg Normal 27.0-32.0 [facility] Comment on above: Performed By: #### L 500.2500, L100.0100 ####[facility] [address] [place], [address] MCHC (RBC) [Mass/Vol] 33.4 g/dL Normal 32-36 [facility] Comment on above: Performed By: #### L 500.2500, L100.0100 ####[facility] [address] [place], [address] MCV (RBC) [Entitic vol] 93.1 fL Normal 81-99 [facility] Comment on above: Performed By: #### L 500.2500, L100.0100 ####[facility] [address] [place], [address] Monocytes/100 WBC (Bld) 10.5 % High 0-10 [facility] Comment on above: Performed By: #### L 500.2500, L100.0100 ####[facility] [address] [place], [address] Neutrophils/100 WBC (Bld) 55.7 % Normal 47-70 [facility] Comment on above: Performed By: #### L 500.2500, L100.0100 ####[facility] [address] [place], [address] Nucleated RBC (Bld) [#/Vol] 0 10*3/uL Normal 0-5 [facility] Comment on above: Performed By: #### L 500.2500, L100.0100 ####[facility] [address] [place], [address] Platelet mean volume (Bld) [Entitic vol] 10.9 fL Normal 6.2-12.0 [facility] Comment on above: Performed By: #### L 500.2500, L100.0100 ####[facility] [address] [place], [address] Platelets (Bld) [#/Vol] 229 10*3/uL Normal 150-450 [facility] Comment on above: Performed By: #### L 500.2500, L100.0100 ####[facility] [address] [place], [address] RBC (Bld) [#/Vol] 3.89 10*6/uL Low 4.2-5.4 [facility] Comment on above: Performed By: #### L 500.2500, L100.0100 ####[facility] [address] [place], [address] RDW SD 43.7 fl Normal 35.1-43.9 [facility] Comment on above: Performed By: #### L 500.2500, L100.0100 ####[facility] [address] [place], [address] WBC (Bld) [#/Vol] 8.5 10*3/uL Normal 4.4-11.0 [facility] Comment on above: Performed By: #### L 500.2500, L100.0100 ####[facility] [address] [place], [address] Bedside Glucoseon 10-05-2024 FINGERSTICK GLU 233 mg/dL High 74-106 [facility] Comment on above: Result Comment: OLGA GOMEZ OF PATIENT CARE PER NURSING PROTOCOL Performed By: #### L 501.080 ####[facility] [address] [place], [address] FINGERSTICK GLU 249 mg/dL High [address] [place] [address] Comment on above: Result Comment: OLGA GEMENT OF PATIENT CARE PER NURSING PROTOCOL Performed By: #### L 501.080 ####[facility] [address] [place], [address] FINGERSTICK GLU 368 mg/dL High -106 [facility] Comment on above: Result Comment: OLGA GEMENT OF PATIENT CARE PER NURSING PROTOCOL Performed By: #### L 501.080 ####[facility] [address] [place], [address] FINGERSTICK GLU 233 mg/dL High [address] [place] [address] Comment on above: Result Comment: OLGA GEMENT OF PATIENT CARE PER NURSING PROTOCOL Performed By: #### L 501.080 ####[facility] [address] [place], [address] Bedside Glucoseon 10-04-2024 FINGERSTICK GLU 305 mg/dL High [address] [place] [address] Comment on above: Result Comment: OLGA GEMENT OF PATIENT CARE PER NURSING PROTOCOL Performed By: #### L 501.080 ####[facility] [address] [place], [address] FINGERSTICK GLU 331 mg/dL High [address] [place] [address] Comment on above: Result Comment: OLGA GEMENT OF PATIENT CARE PER NURSING PROTOCOL Performed By: #### L 501.080 ####[facility] [address] [place], [address] FINGERSTICK GLU 298 mg/dL High [address] [place] [address] Comment on above: Result Comment: OLGA GEMENT OF PATIENT CARE PER NURSING PROTOCOL Performed By: #### L 501.080 ####[facility] [address] [place], [address] FINGERSTICK GLU 215 mg/dL High 74-106 [facility] Comment on above: Result Comment: OLGA GEMENT OF PATIENT CARE PER NURSING PROTOCOL Performed By: #### L 501.080 ####[facility] [address] [place], [address] Bedside Glucoseon 10-03-2024 FINGERSTICK GLU 191 mg/dL High [address] [place] [address] Comment on above: Result Comment: OLGA GEMENT OF PATIENT CARE PER NURSING PROTOCOL Performed By: #### L 501.080 ####[facility] [address] [place], [address] FINGERSTICK GLU 188 mg/dL High [address] [place] [address] Comment on above: Result Comment: OLGA GEMENT OF PATIENT CARE PER NURSING PROTOCOL Performed By: #### L 501.080 ####[facility] [address] [place], [address] FINGERSTICK GLU 321 mg/dL High [address] [place] [address] Comment on above: Result Comment: OLGA GEMENT OF PATIENT CARE PER NURSING PROTOCOL Performed By: #### L 501.080 ####[facility] [address] [place], [address] FINGERSTICK GLU 178 mg/dL [address] Comment on above: Result Comment: OLGA GEMENT OF PATIENT CARE PER NURSING PROTOCOL Performed By: #### L 501.080 ####[facility] [address] [place], [address] Bedside Glucoseon 5 FINGERSTICK GLU 214 mg/dL [address] Comment on above: Result Comment: OLGA GEMENT OF PATIENT CARE PER NURSING PROTOCOL Performed By: #### L 501.080 ####[facility] [address] [place], [address] FINGERSTICK GLU 205 mg/dL High [address] [place] [address] Comment on above: Result Comment: OLGA GEMENT OF PATIENT CARE PER NURSING PROTOCOL Performed By: #### L 501.080 ####[facility] [address] [place], [address] FINGERSTICK GLU 269 mg/dL High 74-106 [facility] Comment on above: Result Comment: OLGA GEMENT OF PATIENT CARE PER NURSING PROTOCOL Performed By: #### L 501.080 ####[facility] [address] [place], [address] FINGERSTICK GLU 185 mg/dL High 74-106 [facility] Comment on above: Result Comment: OLGA GEMENT OF PATIENT CARE PER NURSING PROTOCOL Performed By: #### L 501.080 ####[facility] [address] [place], [address] Bedside Glucoseon 10-01-2024 FINGERSTICK GLU 213 mg/dL High -106 [facility] Comment on above: Result Comment: OLGA GEMENT OF PATIENT CARE PER NURSING PROTOCOL Performed By: #### L 501.080 ####[facility] [address] [place], [address] FINGERSTICK GLU 193 mg/dL High 74-106 [facility] Comment on above: Result Comment: OLGA GEMENT OF PATIENT CARE PER NURSING PROTOCOL Performed By: #### L 501.080 ####[facility] [address] [place], [address] FINGERSTICK GLU 253 mg/dL High 74-106 [facility] Comment on above: Result Comment: OLGA GEMENT OF PATIENT CARE PER NURSING PROTOCOL Performed By: #### L 501.080 ####[facility] [address] [place], [address] FINGERSTICK GLU 172 mg/dL High 74-106 [facility] Comment on above: Result Comment: OLGA GEMENT OF PATIENT CARE PER NURSING PROTOCOL Performed By: #### L 501.080 ####[facility] [address] [place], [address] COVID 19 AG RAPID (RN JOSE Peters)on 10-01-2024 SARS-CoV-2 (COVID-19) RNA JOANNA+probe Ql (Unsp spec) Normal [facility] Comment on above: Performed By: #### M 100.505 ####[facility] [address] [place], [address] SP/SP.FEESon 10-01-2024 SP/SP.FEES Normal [facility] Bedside Glucoseon 09-30-2024 FINGERSTICK GLU 187 mg/dL High 74-106 [facility] Comment on above: Result Comment: OLGA GEMENT OF PATIENT CARE PER NURSING PROTOCOL Performed By: #### L 501.080 ####[facility] [address] [place], [address] FINGERSTICK GLU 199 mg/dL High 74-106 [facility] Comment on above: Result Comment: OLGA GEMENT OF PATIENT CARE PER NURSING PROTOCOL Performed By: #### L 501.080 ####[facility] [address] [place], [address] FINGERSTICK GLU 233 mg/dL High 74-106 [facility] Comment on above: Result Comment: OLGA GEMENT OF PATIENT CARE PER NURSING PROTOCOL Performed By: #### L 501.080 ####[facility] [facility] [address] [place], [address] FINGERSTICK GLU 181 mg/dL High 74-106 [facility] Comment on above: Result Comment: OLGA GEMENT OF PATIENT CARE PER NURSING PROTOCOL Performed By: #### L 501.080 ####[facility] [address] [place], [address] Consultation - Surgicalon Consultation - Surgical Normal [facility] Basic Metabolic Profile (BMP )on 09-29-2024 BUN/CRE 21.9 RATIO High 10-20 [facility] Comment on above: Performed By: #### L 100.0100, L500.2500 ####[facility] [address] [place], [address] CA,Total 9.1 mg/dL Normal 8.5-10.1 [facility] Comment on above: Performed By: #### L 100.0100, L500.2500 ####[facility] [address] [place], [address] Chloride [Moles/Vol] 105 mmol/L Normal 98-107 [facility] Comment on above: Performed By: #### L 100.0100, L500.2500 ####[facility] [address] [place], [address] CO2 [Moles/Vol] 26.0 mmol/L Normal 21.0-32.0 [facility] Comment on above: Performed By: #### L 100.0100, L500.2500 ####[facility] [address] [place], [address] Creatinine [Mass/Vol] 0.82 mg/dL Normal 0.55-1.02 [facility] Comment on above: Result Comment: The validity of the calculated GFR GFRAA in patients over70 years has not been determined. Clinical correlation isessential. Performed By: #### L 100.0100, L500.2500 ####[facility] [address] [place], [address] ECRCL 48.54 ml/min Normal [facility] Comment on above: Performed By: #### L 100.0100, L500.2500 ####[facility] [address] [place], [address] EST GFR - AA 86 mL/min Normal >60 [facility] Comment on above: Result Comment: Afri can [place] GFR Calc Performed By: #### L 100.0100, L500.2500 ####[facility] [address] [place], [address] GAP 7 Normal 5-15 [facility] Comment on above: Performed By: #### L 100.0100, L500.2500 ####[facility] [address] [place], [address] GFR/1.73 sq M.predicted among non-blacks MDRD (S/P/Bld) [Vol rate/Area] 71 mL/min/{1.73_m2} Normal >60 [facility] Comment on above: Result Comment: Non- GFR Calc Performed By: #### L 100.0100, L500.2500 ####[facility] [address] [place], [address] Glucose [Mass/Vol] 200 mg/dL High 74-106 [facility] Comment on above: Result Comment: Gluc ose result greater than or equal to 200 mg/dLsuggests DIABETES MELLITUS per A.D.A. criteria. Performed By: #### L 100.0100, L500.2500 ####[facility] [address] [place], [address] Potassium [Moles/Vol] 3.8 mmol/L Normal 3.5-5.1 [facility] Comment on above: Performed By: #### L 100.0100, L500.2500 ####[facility] [address] [place], [address] Sodium [Moles/Vol] 138 mmol/L Normal 136-145 [facility] Comment on above: Performed By: #### L 100.0100, L500.2500 ####[facility] [address] [place], [address] Urea nitrogen [Mass/Vol] 18 mg/dL Normal 7-18 [facility] Comment on above: Performed By: #### L 100.0100, L500.2500 ####[facility] [address] [place], [address] Bedside Glucoseon 09-29-2024 FINGERSTICK GLU 171 mg/dL High [address] [place] [address] Comment on above: Result Comment: OLGA GEMENT OF PATIENT CARE PER NURSING PROTOCOL Performed By: #### L 501.080 ####[facility] [address] [place], [address] FINGERSTICK GLU 140 mg/dL High [facility]106 [facility] Comment on above: Result Comment: OLGA GEMENT OF PATIENT CARE PER NURSING PROTOCOL Performed By: #### L 501.080 ####[facility] [address] [place], [address] FINGERSTICK GLU 244 mg/dL High [address] [place] [address] Comment on above: Result Comment: OLGA GEMENT OF PATIENT CARE PER NURSING PROTOCOL Performed By: #### L 501.080 ####[facility] [address] [place], [address] FINGERSTICK GLU 191 mg/dL High [address] [place] [address] Comment on above: Result Comment: OLGA GEMENT OF PATIENT CARE PER NURSING PROTOCOL Performed By: #### L 501.080 ####[facility] [address] [place], [address] CBC W/Diff, Automatedon - Absolute Lymph 2.40 X10 3/uL Normal 0.83-4.51 [facility] Comment on above: Performed By: #### L 100.0100, L500.2500 ####[facility] [address] [place], [address] Absolute Neut 4.0 X10 3/uL Normal 2.0-7.7 [facility] Comment on above: Performed By: #### L 100.0100, L500.2500 ####[facility] [address] [place], [address] Basophils/100 WBC (Bld) 0.4 % Normal 0-1 [facility] Comment on above: Performed By: #### L 100.0100, L500.2500 ####[facility] [address] [place], [address] Eosinophils/100 WBC (Bld) 4.1 % Normal 0-5 [facility] Comment on above: Performed By: #### L 100.0100, L500.2500 ####[facility] [address] [place], [address] Erythrocyte distribution width (RBC) [Ratio] 12.8 % Normal 11.6-14.6 [facility] Comment on above: Performed By: #### L 100.0100, L500.2500 ####[facility] [address] [place], [address] Hematocrit (Bld) [Volume fraction] 37.7 % Normal 37-47 [facility] Comment on above: Performed By: #### L 100.0100, L500.2500 ####[facility] [address] [place], [address] Hemoglobin (Bld) [Mass/Vol] 12.4 g/dL Normal 12.0-15.0 [facility] Comment on above: Performed By: #### L 100.0100, L500.2500 ####[facility] [address] [place], [address] IG% 0.400 Normal 0.0-0.9 [facility] Comment on above: Result Comment: IG% - Immature Granulocytes (promyelocytes, myelocytes andmetamyelocytes) > 1% indicates that a LEFT SHIFT is Present. Performed By: #### L 100.0100, L500.2500 ####[facility] [address] [place], [address] Lymphocytes/100 WBC (Bld) 31.7 % Normal 19-41 [facility] Comment on above: Performed By: #### L 100.0100, L500.2500 ####[facility] [address] [place], [address] MCH (RBC) [Entitic mass] 30.5 pg Normal 27.0-32.0 [facility] Comment on above: Performed By: #### L 100.0100, L500.2500 ####[facility] [address] [place], [address] MCHC (RBC) [Mass/Vol] 32.9 g/dL Normal 32-36 [facility] Comment on above: Performed By: #### L 100.0100, L500.2500 ####[facility] [address] [place], [address] MCV (RBC) [Entitic vol] 92.9 fL Normal 81-99 [facility] Comment on above: Performed By: #### L 100.0100, L500.2500 ####[facility] [address] [place], [address] Monocytes/100 WBC (Bld) 10.1 % High 0-10 [facility] Comment on above: Performed By: #### L 100.0100, L500.2500 ####[facility] [address] [place], [address] Neutrophils/100 WBC (Bld) 53.3 % Normal 47-70 [facility] Comment on above: Performed By: #### L 100.0100, L500.2500 ####[facility] [address] [place], [address] Nucleated RBC (Bld) [#/Vol] 0 10*3/uL Normal 0-5 [facility] Comment on above: Performed By: #### L 100.0100, L500.2500 ####[facility] [address] [place], [address] Platelet mean volume (Bld) [Entitic vol] 10.7 fL Normal 6.2-12.0 [facility] Comment on above: Performed By: #### L 100.0100, L500.2500 ####[facility] [address] [place], [address] Platelets (Bld) [#/Vol] 229 10*3/uL Normal 150-450 [facility] Comment on above: Performed By: #### L 100.0100, L500.2500 ####[facility] [address] [place], [address] RBC (Bld) [#/Vol] 4.06 10*6/uL Low 4.2-5.4 [facility] Comment on above: Performed By: #### L 100.0100, L500.2500 ####[facility] [address] [place], [address] RDW SD 43.6 fl Normal 35.1-43.9 [facility] Comment on above: Performed By: #### L 100.0100, L500.2500 ####[facility] [address] [place], [address] WBC (Bld) [#/Vol] 7.6 10*3/uL Normal 4.4-11.0 [facility] Comment on above: Performed By: #### L 100.0100, L500.2500 ####[facility] [address] [place], [address] Bedside Glucoseon 09-28-2024 FINGERSTICK GLU 180 mg/dL High 74-106 [facility] Comment on above: Result Comment: OLGA GEMENT OF PATIENT CARE PER NURSING PROTOCOL Performed By: #### L 501.080 ####[facility] [address] [place], [address] FINGERSTICK GLU 187 mg/dL High 74-106 [facility] Comment on above: Result Comment: OLGA GEMENT OF PATIENT CARE PER NURSING PROTOCOL Performed By: #### L 501.080 ####[facility] [address] [place], [address] FINGERSTICK GLU 254 mg/dL High -106 [facility] Comment on above: Result Comment: OLGA GEMENT OF PATIENT CARE PER NURSING PROTOCOL Performed By: #### L 501.080 ####[facility] [address] [place], [address] FINGERSTICK GLU 146 mg/dL High 74-106 [facility] Comment on above: Result Comment: OLGA GEMENT OF PATIENT CARE PER NURSING PROTOCOL Performed By: #### L 501.080 ####[facility] [address] [place], [address] Bedside Glucoseon 09-27-2024 FINGERSTICK GLU 178 mg/dL High [address] [place] [address] Comment on above: Result Comment: OLGA GEMENT OF PATIENT CARE PER NURSING PROTOCOL Performed By: #### L 501.080 ####[facility] [address] [place], [address] FINGERSTICK GLU 198 mg/dL High [facility]106 [facility] Comment on above: Result Comment: OLGA GEMENT OF PATIENT CARE PER NURSING PROTOCOL Performed By: #### L 501.080 ####[facility] [address] [place], [address] FINGERSTICK GLU 319 mg/dL High [facility]106 [facility] Comment on above: Result Comment: OLGA GEMENT OF PATIENT CARE PER NURSING PROTOCOL Performed By: #### L 501.080 ####[facility] [address] [place], [address] FINGERSTICK GLU 223 mg/dL High [address] [place] [address] Comment on above: Result Comment: OLGA GEMENT OF PATIENT CARE PER NURSING PROTOCOL Performed By: #### L 501.080 ####[facility] [address] [place], [address] Bedside Glucoseon 09-26-2024 FINGERSTICK GLU 330 mg/dL High [address] [place] [address] Comment on above: Result Comment: OLGA GEMENT OF PATIENT CARE PER NURSING PROTOCOL Performed By: #### L 501.080 ####[facility] [address] [place], [address] FINGERSTICK GLU 304 mg/dL High [address] [place] [address] Comment on above: Result Comment: OLGA GEMENT OF PATIENT CARE PER NURSING PROTOCOL Performed By: #### L 501.080 ####[facility] [address] [place], [address] FINGERSTICK GLU 277 mg/dL High [address] [place] [address] Comment on above: Result Comment: OLGA GEMENT OF PATIENT CARE PER NURSING PROTOCOL Performed By: #### L 501.080 ####[facility] [address] [place], [address] FINGERSTICK GLU 183 mg/dL [address] Comment on above: Result Comment: OLGA GEMENT OF PATIENT CARE PER NURSING PROTOCOL Performed By: #### L 501.080 ####[facility] [address] [place], [address] Bedside Glucoseon 09-25-2024 FINGERSTICK GLU 285 mg/dL High [address] [place] [address] Comment on above: Result Comment: OLGA GEMENT OF PATIENT CARE PER NURSING PROTOCOL Performed By: #### L 501.080 ####[facility] [address] [place], [address] FINGERSTICK GLU 293 mg/dL [address] Comment on above: Result Comment: OLGA GEMENT OF PATIENT CARE PER NURSING PROTOCOL Performed By: #### L 501.080 ####[facility] [address] [place], [address] FINGERSTICK GLU 219 mg/dL High [address] [place] [address] Comment on above: Result Comment: OLGA GEMENT OF PATIENT CARE PER NURSING PROTOCOL Performed By: #### L 501.080 ####[facility] [address] [place], [address] FINGERSTICK GLU 152 mg/dL High 74-106 [facility] Comment on above: Result Comment: OLGA GEMENT OF PATIENT CARE PER NURSING PROTOCOL Performed By: #### L 501.080 ####[facility] [address] [place], [address] Bedside Glucoseon 09-24-2024 FINGERSTICK GLU 231 mg/dL High -106 [facility] Comment on above: Result Comment: OLGA GEMENT OF PATIENT CARE PER NURSING PROTOCOL Performed By: #### L 501.080 ####[facility] [address] [place], [address] FINGERSTICK GLU 221 mg/dL High [facility]106 [facility] Comment on above: Result Comment: OLGA GEMENT OF PATIENT CARE PER NURSING PROTOCOL Performed By: #### L 501.080 ####[facility] [address] [place], [address] FINGERSTICK GLU 272 mg/dL High [facility]106 [facility] Comment on above: Result Comment: OLGA GEMENT OF PATIENT CARE PER NURSING PROTOCOL Performed By: #### L 501.080 ####[facility] [address] [place], [address] FINGERSTICK GLU 174 mg/dL High [address] [place] [address] Comment on above: Result Comment: OLGA GEMENT OF PATIENT CARE PER NURSING PROTOCOL Performed By: #### L 501.080 ####[facility] [address] [place], [address] COVID 19 AG RAPID (MANNY Peters)on 09-24-2024 SARS-CoV-2 (COVID-19) RNA JOANNA+probe Ql (Unsp spec) Normal [facility] Comment on above: Performed By: #### M 100.505 ####[facility] [address] [place], [address] Bedside Glucoseon 09-23-2024 FINGERSTICK GLU 264 mg/dL High [address] [facility] Comment on above: Result Comment: OLGA GEMENT OF PATIENT CARE PER NURSING PROTOCOL Performed By: #### L 501.080 ####[facility] [address] [place], [address] FINGERSTICK GLU 215 mg/dL High 74-106 [facility] Comment on above: Result Comment: OLGA GEMENT OF PATIENT CARE PER NURSING PROTOCOL Performed By: #### L 501.080 ####[facility] [address] [place], [address] FINGERSTICK GLU 269 mg/dL High [facility]106 [facility] Comment on above: Result Comment: OLGA GEMENT OF PATIENT CARE PER NURSING PROTOCOL Performed By: #### L 501.080 ####[facility] [address] [place], [address] FINGERSTICK GLU 150 mg/dL High [address] [place] [address] Comment on above: Result Comment: OLGA GEMENT OF PATIENT CARE PER NURSING PROTOCOL Performed By: #### L 501.080 ####[facility] [address] [place], [address] Basic Metabolic Profile (BMP )on 09-22-2024 BUN/CRE 23.1 RATIO High 10-20 [facility] Comment on above: Performed By: #### L 500.2500, L100.0100 ####[facility] [address] [place], [address] CA,Total 9.0 mg/dL Normal 8.5-10.1 [facility] Comment on above: Performed By: #### L 500.2500, L100.0100 ####[facility] [address] [place], [address] Chloride [Moles/Vol] 107 mmol/L Normal 98-107 [facility] Comment on above: Performed By: #### L 500.2500, L100.0100 ####[facility] [address] [place], [address] CO2 [Moles/Vol] 24.0 mmol/L Normal 21.0-32.0 [facility] Comment on above: Performed By: #### L 500.2500, L100.0100 ####[facility] [address] [place], [address] Creatinine [Mass/Vol] 0.74 mg/dL Normal 0.55-1.02 [facility] Comment on above: Result Comment: The validity of the calculated GFR GFRAA in patients over70 years has not been determined. Clinical correlation isessential. Performed By: #### L 500.2500, L100.0100 ####[facility] [address] [place], [address] ECRCL 49.86 ml/min Normal [facility] Comment on above: Performed By: #### L 500.2500, L100.0100 ####[facility] [address] [place], [address] EST GFR - AA 97 mL/min Normal >60 [facility] Comment on above: Result Comment: Afri can [place] GFR Calc Performed By: #### L 500.2500, L100.0100 ####[facility] [address] [place], [address] GAP 9 Normal 5-15 [facility] Comment on above: Performed By: #### L 500.2500, L100.0100 ####[facility] [address] [place], [address] GFR/1.73 sq M.predicted among non-blacks MDRD (S/P/Bld) [Vol rate/Area] 80 mL/min/{1.73_m2} Normal >60 [facility] Comment on above: Result Comment: Non- GFR Calc Performed By: #### L 500.2500, L100.0100 ####[facility] [address] [place], [address] Glucose [Mass/Vol] 129 mg/dL High 74-106 [facility] Comment on above: Result Comment: Fast ing Glucose result greater than or equal to 126 mg/dLsuggests DIABETES MELLITUS per A.D.A. criteria. Performed By: #### L 500.2500, L100.0100 ####[facility] [address] [place], [address] Potassium [Moles/Vol] 4.1 mmol/L Normal 3.5-5.1 [facility] Comment on above: Performed By: #### L 500.2500, L100.0100 ####[facility] [address] [place], [address] Sodium [Moles/Vol] 140 mmol/L Normal 136-145 [facility] Comment on above: Performed By: #### L 500.2500, L100.0100 ####[facility] [address] [place], [address] Urea nitrogen [Mass/Vol] 17 mg/dL Normal 7-18 [facility] Comment on above: Performed By: #### L 500.2500, L100.0100 ####[facility] [address] [place], [address] Bedside Glucoseon 09-22-2024 FINGERSTICK GLU 159 mg/dL High 74-106 [facility] Comment on above: Result Comment: OLGA GEMENT OF PATIENT CARE PER NURSING PROTOCOL Performed By: #### L 501.080 ####[facility] [address] [place], [address] FINGERSTICK GLU 128 mg/dL High 74-106 [facility] Comment on above: Result Comment: OLGA GEMENT OF PATIENT CARE PER NURSING PROTOCOL Performed By: #### L 501.080 ####[facility] [address] [place], [address] FINGERSTICK GLU 68 mg/dL Low 74-106 [facility] Comment on above: Result Comment: OLGA GEMENT OF PATIENT CARE PER NURSING PROTOCOL Performed By: #### L 501.080 ####[facility] [address] [place], [address] FINGERSTICK GLU 86 mg/dL Normal 74-106 [facility] Comment on above: Result Comment: OLGA GEMENT OF PATIENT CARE PER NURSING PROTOCOL Performed By: #### L 501.080 ####[facility] [address] [place], [address] FINGERSTICK GLU 66 mg/dL Low 74-106 [facility] Comment on above: Result Comment: OLGA GEMENT OF PATIENT CARE PER NURSING PROTOCOL Performed By: #### L 501.080 ####[facility] [address] [place], [address] FINGERSTICK GLU 218 mg/dL High 74-106 [facility] Comment on above: Result Comment: OLGA GEMENT OF PATIENT CARE PER NURSING PROTOCOL Performed By: #### L 501.080 ####[facility] [address] [place], [address] FINGERSTICK GLU 136 mg/dL High 74-106 [facility] Comment on above: Result Comment: OLGA GEMENT OF PATIENT CARE PER NURSING PROTOCOL Performed By: #### L 501.080 ####[facility] [address] [place], [address] CBC W/Diff, Automatedon 09-13 0-2024 Absolute Lymph 2.20 X10 3/uL Normal 0.83-4.51 [facility] Comment on above: Performed By: #### L 500.2500, L100.0100 ####[facility] [address] [place], [address] Absolute Neut 3.5 X10 3/uL Normal 2.0-7.7 [facility] Comment on above: Performed By: #### L 500.2500, L100.0100 ####[facility] [address] [place], [address] Basophils/100 WBC (Bld) 0.6 % Normal 0-1 [facility] Comment on above: Performed By: #### L 500.2500, L100.0100 ####[facility] [address] [place], [address] Eosinophils/100 WBC (Bld) 4.7 % Normal 0-5 [facility] Comment on above: Performed By: #### L 500.2500, L100.0100 ####[facility] [address] [place], [address] Erythrocyte distribution width (RBC) [Ratio] 12.9 % Normal 11.6-14.6 [facility] Comment on above: Performed By: #### L 500.2500, L100.0100 ####[facility] [address] [place], [address] Hematocrit (Bld) [Volume fraction] 35.2 % Low 37-47 [facility] Comment on above: Performed By: #### L 500.2500, L100.0100 ####[facility] [address] [place], [address] Hemoglobin (Bld) [Mass/Vol] 11.8 g/dL Low 12.0-15.0 [facility] Comment on above: Performed By: #### L 500.2500, L100.0100 ####[facility] [address] [place], [address] IG% 0.300 Normal 0.0-0.9 [facility] Comment on above: Result Comment: IG% - Immature Granulocytes (promyelocytes, myelocytes andmetamyelocytes) > 1% indicates that a LEFT SHIFT is Present. Performed By: #### L 500.2500, L100.0100 ####[facility] [address] [place], [address] Lymphocytes/100 WBC (Bld) 32.3 % Normal 19-41 [facility] Comment on above: Performed By: #### L 500.2500, L100.0100 ####[facility] [address] [place], [address] MCH (RBC) [Entitic mass] 31.2 pg Normal 27.0-32.0 [facility] Comment on above: Performed By: #### L 500.2500, L100.0100 ####[facility] [address] [place], [address] MCHC (RBC) [Mass/Vol] 33.5 g/dL Normal 32-36 [facility] Comment on above: Performed By: #### L 500.2500, L100.0100 ####[facility] [address] [place], [address] MCV (RBC) [Entitic vol] 93.1 fL Normal 81-99 [facility] Comment on above: Performed By: #### L 500.2500, L100.0100 ####[facility] [address] [place], [address] Monocytes/100 WBC (Bld) 11.3 % High 0-10 [facility] Comment on above: Performed By: #### L 500.2500, L100.0100 ####[facility] [address] [place], [address] Neutrophils/100 WBC (Bld) 50.8 % Normal 47-70 [facility] Comment on above: Performed By: #### L 500.2500, L100.0100 ####[facility] [address] [place], [address] Nucleated RBC (Bld) [#/Vol] 0 10*3/uL Normal 0-5 [facility] Comment on above: Performed By: #### L 500.2500, L100.0100 ####[facility] [address] [place], [address] Platelet mean volume (Bld) [Entitic vol] 10.1 fL Normal 6.2-12.0 [facility] Comment on above: Performed By: #### L 500.2500, L100.0100 ####[facility] [address] [place], [address] Platelets (Bld) [#/Vol] 266 10*3/uL Normal 150-450 [facility] Comment on above: Performed By: #### L 500.2500, L100.0100 ####[facility] [address] [place], [address] RBC (Bld) [#/Vol] 3.78 10*6/uL Low 4.2-5.4 [facility] Comment on above: Performed By: #### L 500.2500, L100.0100 ####[facility] [address] [place], [address] RDW SD 43.8 fl Normal 35.1-43.9 [facility] Comment on above: Performed By: #### L 500.2500, L100.0100 ####[facility] [address] [place], [address] WBC (Bld) [#/Vol] 6.8 10*3/uL Normal 4.4-11.0 [facility] Comment on above: Performed By: #### L 500.2500, L100.0100 ####[facility] [address] [place], [address] Bedside Glucoseon 09-21-2024 FINGERSTICK GLU 180 mg/dL High 74-106 [facility] Comment on above: Result Comment: OLGA GEMENT OF PATIENT CARE PER NURSING PROTOCOL Performed By: #### L 501.080 ####[facility] [address] [place], [address] FINGERSTICK GLU 116 mg/dL High 74-106 [facility] Comment on above: Result Comment: OLGA GEMENT OF PATIENT CARE PER NURSING PROTOCOL Performed By: #### L 501.080 ####[facility] [address] [place], [address] FINGERSTICK GLU 80 mg/dL Normal 74-106 [facility] Comment on above: Result Comment: OLGA GEMENT OF PATIENT CARE PER NURSING PROTOCOL Performed By: #### L 501.080 ####[facility] [address] [place], [address] FINGERSTICK GLU 211 mg/dL High 74-106 [facility] Comment on above: Result Comment: OLGA GEMENT OF PATIENT CARE PER NURSING PROTOCOL Performed By: #### L 501.080 ####[facility] [address] [place], [address] FINGERSTICK GLU 147 mg/dL High 74-106 [facility] Comment on above: Result Comment: OLGA GEMENT OF PATIENT CARE PER NURSING PROTOCOL Performed By: #### L 501.080 ####[facility] [address] [place], [address] FINGERSTICK GLU 179 mg/dL High 74-106 [facility] Comment on above: Result Comment: OLGA GEMENT OF PATIENT CARE PER NURSING PROTOCOL Performed By: #### L 501.080 ####[facility] [address] [place], [address] Bedside Glucoseon 09-20-2024 FINGERSTICK GLU 128 mg/dL High -106 [facility] Comment on above: Result Comment: OLGA GEMENT OF PATIENT CARE PER NURSING PROTOCOL Performed By: #### L 501.080 ####[facility] [address] [place], [address] FINGERSTICK GLU 210 mg/dL High 74-106 [facility] Comment on above: Result Comment: OLGA GEMENT OF PATIENT CARE PER NURSING PROTOCOL Performed By: #### L 501.080 ####[facility] [address] [place], [address] FINGERSTICK GLU 171 mg/dL High 74-106 [facility] Comment on above: Result Comment: OLGA GEMENT OF PATIENT CARE PER NURSING PROTOCOL Performed By: #### L 501.080 ####[facility] [address] [place], [address] Bedside Glucoseon 09-19-2024 FINGERSTICK GLU 104 mg/dL Normal 74-106 [facility] Comment on above: Result Comment: OLGA GEMENT OF PATIENT CARE PER NURSING PROTOCOL Performed By: #### L 501.080 ####[facility] [address] [place], [address] FINGERSTICK GLU 113 mg/dL High 74-106 [facility] Comment on above: Result Comment: OLGA GEMENT OF PATIENT CARE PER NURSING PROTOCOL Performed By: #### L 501.080 ####[facility] [address] [place], [address] FINGERSTICK GLU 166 mg/dL High 74-106 [facility] Comment on above: Result Comment: OLGA GEMENT OF PATIENT CARE PER NURSING PROTOCOL Performed By: #### L 501.080 ####[facility] [address] [place], [address] FINGERSTICK GLU 161 mg/dL High 74-106 [facility] Comment on above: Result Comment: OLGA GEMENT OF PATIENT CARE PER NURSING PROTOCOL Performed By: #### L 501.080 ####[facility] [address] [place], [address] Modified Barium Swallow Stud yon 09-19-2024 Modified Barium Swallow Study Normal [facility] Bedside Glucoseon 09-18-2024 FINGERSTICK GLU 152 mg/dL High 74-106 [facility] Comment on above: Result Comment: OLGA GEMENT OF PATIENT CARE PER NURSING PROTOCOL Performed By: #### L 501.080 ####[facility] [address] [place], [address] FINGERSTICK GLU 129 mg/dL High 74-106 [facility] Comment on above: Result Comment: OLGA GEMENT OF PATIENT CARE PER NURSING PROTOCOL Performed By: #### L 501.080 ####[facility] [address] [place], [address] FINGERSTICK GLU 195 mg/dL High -[address] [place] [address] Comment on above: Result Comment: OLGA GEMENT OF PATIENT CARE PER NURSING PROTOCOL Performed By: #### L 501.080 ####[facility] [address] [place], [address] FINGERSTICK GLU 168 mg/dL High [address] [place] [address] Comment on above: Result Comment: OLGA GEMENT OF PATIENT CARE PER NURSING PROTOCOL Performed By: #### L 501.080 ####[facility] [address] [place], [address] Bedside Glucoseon 09-17-2024 FINGERSTICK GLU 110 mg/dL High -106 [facility] Comment on above: Result Comment: OLGA GEMENT OF PATIENT CARE PER NURSING PROTOCOL Performed By: #### L 501.080 ####[facility] [address] [place], [address] FINGERSTICK GLU 117 mg/dL High -106 [facility] Comment on above: Result Comment: OLGA GEMENT OF PATIENT CARE PER NURSING PROTOCOL Performed By: #### L 501.080 ####[facility] [address] [place], [address] FINGERSTICK GLU 98 mg/dL Normal -106 [facility] Comment on above: Result Comment: OLGA GEMENT OF PATIENT CARE PER NURSING PROTOCOL Performed By: #### L 501.080 ####[facility] [address] [place], [address] FINGERSTICK GLU 134 mg/dL High 74-106 [facility] Comment on above: Result Comment: OLGA GEMENT OF PATIENT CARE PER NURSING PROTOCOL Performed By: #### L 501.080 ####[facility] [address] [place], [address] FINGERSTICK GLU 113 mg/dL High 74-106 [facility] Comment on above: Result Comment: OLGA GEMENT OF PATIENT CARE PER NURSING PROTOCOL Performed By: #### L 501.080 ####[facility] [address] [place], [address] Bedside Glucoseon 09-16-2024 FINGERSTICK GLU 153 mg/dL High 74-106 [facility] Comment on above: Result Comment: OLGA GEMENT OF PATIENT CARE PER NURSING PROTOCOL Performed By: #### L 501.080 ####[facility] [address] [place], [address] FINGERSTICK GLU 177 mg/dL High 74-106 [facility] Comment on above: Result Comment: OLGA GEMENT OF PATIENT CARE PER NURSING PROTOCOL Performed By: #### L 501.080 ####[facility] [address] [place], [address] FINGERSTICK GLU 243 mg/dL High 74-106 [facility] Comment on above: Result Comment: OLGA GEMENT OF PATIENT CARE PER NURSING PROTOCOL Performed By: #### L 501.080 ####[facility] [address] [place], [address] FINGERSTICK GLU 130 mg/dL High 74-106 [facility] Comment on above: Result Comment: OLGA GEMENT OF PATIENT CARE PER NURSING PROTOCOL Performed By: #### L 501.080 ####[facility] [address] [place], [address] Basic Metabolic Profile (BMP )on 09-15-2024 BUN/CRE 18.8 RATIO Normal 10-20 [facility] Comment on above: Performed By: #### L 501.5200, L500.2500 ####[facility] [address] [place], [address] CA,Total 9.1 mg/dL Normal 8.5-10.1 [facility] Comment on above: Performed By: #### L 501.5200, L500.2500 ####[facility] [address] [place], [address] Chloride [Moles/Vol] 106 mmol/L Normal 98-107 [facility] Comment on above: Performed By: #### L 501.5200, L500.2500 ####[facility] [address] [place], [address] CO2 [Moles/Vol] 26.0 mmol/L Normal 21.0-32.0 [facility] Comment on above: Performed By: #### L 501.5200, L500.2500 ####[facility] [address] [place], [address] Creatinine [Mass/Vol] 0.80 mg/dL Normal 0.55-1.02 [facility] Comment on above: Result Comment: The validity of the calculated GFR GFRAA in patients over70 years has not been determined. Clinical correlation isessential. Performed By: #### L 501.5200, L500.2500 ####[facility] [address] [place], [address] ECRCL 48.73 ml/min Normal [facility] Comment on above: Performed By: #### L 501.5200, L500.2500 ####[facility] [address] [place], [address] EST GFR - AA 88 mL/min Normal >60 [facility] Comment on above: Result Comment: Afri can Bruneian GFR Calc Performed By: #### L 501.5200, L500.2500 ####[facility] [address] [place], [address] GAP 8 Normal 5-15 [facility] Comment on above: Performed By: #### L 501.5200, L500.2500 ####[facility] [address] [place], [address] GFR/1.73 sq M.predicted among non-blacks MDRD (S/P/Bld) [Vol rate/Area] 73 mL/min/{1.73_m2} Normal >60 [facility] Comment on above: Result Comment: Non- GFR Calc Performed By: #### L 501.5200, L500.2500 ####[facility] [address] [place], [address] Glucose [Mass/Vol] 119 mg/dL High 74-106 [facility] Comment on above: Result Comment: Fast ing Glucose result from 100 to 125 mg/dLsuggests IMPAIRED HOMEOSTASIS per A.D.A. criteria. Performed By: #### L 501.5200, L500.2500 ####[facility] [address] [place], [address] Potassium [Moles/Vol] 4.2 mmol/L Normal 3.5-5.1 [facility] Comment on above: Performed By: #### L 501.5200, L500.2500 ####[facility] [address] [place], [address] Sodium [Moles/Vol] 140 mmol/L Normal 136-145 [facility] Comment on above: Performed By: #### L 501.5200, L500.2500 ####[facility] [address] [place], [address] Urea nitrogen [Mass/Vol] 15 mg/dL Normal 7-18 [facility] Comment on above: Performed By: #### L 501.5200, L500.2500 ####[facility] [address] [place], [address] Bedside Glucoseon 09-15-2024 FINGERSTICK GLU 185 mg/dL High 74-106 [facility] Comment on above: Result Comment: OLGA GEMENT OF PATIENT CARE PER NURSING PROTOCOL Performed By: #### L 501.080 ####[facility] [address] [place], [address] FINGERSTICK GLU 105 mg/dL Normal 74-106 [facility] Comment on above: Result Comment: OLGA GEMENT OF PATIENT CARE PER NURSING PROTOCOL Performed By: #### L 501.080 ####[facility] [address] [place], [address] FINGERSTICK GLU 185 mg/dL High 74-106 [facility] Comment on above: Result Comment: OLGA GEMENT OF PATIENT CARE PER NURSING PROTOCOL Performed By: #### L 501.080 ####[facility] [address] [place], [address] FINGERSTICK GLU 123 mg/dL High 74-106 [facility] Comment on above: Result Comment: OLGA GEMENT OF PATIENT CARE PER NURSING PROTOCOL Performed By: #### L 501.080 ####[facility] [address] [place], [address] HH, Hemoglobin AND Hematocri ton 09-15-2024 Hematocrit (Bld) [Volume fraction] 35.7 % Low 37-47 [facility] Comment on above: Performed By: #### L 100.0600 ####[facility] [address] [place], [address] Hemoglobin (Bld) [Mass/Vol] 12.0 g/dL Normal 12.0-15.0 [facility] Comment on above: Performed By: #### L 100.0600 ####[facility] [address] [place], [address] Magnesiumon 09-15-2024 Magnesium [Mass/Vol] 1.9 mg/dL Normal 1.6-2.6 [facility] Comment on above: Performed By: #### L 501.5200, L500.2500 ####[facility] [address] [place], [address] Bedside Glucoseon 09-14-2024 FINGERSTICK GLU 203 mg/dL High 74-106 [facility] Comment on above: Result Comment: OLGA GEMENT OF PATIENT CARE PER NURSING PROTOCOL Performed By: #### L 501.080 ####[facility] [address] [place], [address] FINGERSTICK GLU 92 mg/dL Normal 74-106 [facility] Comment on above: Result Comment: OLGA GEMENT OF PATIENT CARE PER NURSING PROTOCOL Performed By: #### L 501.080 ####[facility] [address] [place], [address] FINGERSTICK GLU 102 mg/dL Normal 74-106 [facility] Comment on above: Result Comment: OLGA GEMENT OF PATIENT CARE PER NURSING PROTOCOL Performed By: #### L 501.080 ####[facility] [address] [place], [address] FINGERSTICK GLU 221 mg/dL High 74-106 [facility] Comment on above: Result Comment: OLGA GEMENT OF PATIENT CARE PER NURSING PROTOCOL Performed By: #### L 501.080 ####[facility] [address] [place], [address] FINGERSTICK GLU 103 mg/dL Normal 74-106 [facility] Comment on above: Result Comment: OLGA GEMENT OF PATIENT CARE PER NURSING PROTOCOL Performed By: #### L 501.080 ####[facility] [address] [place], [address] Bedside Glucoseon 09-13-2024 FINGERSTICK GLU 144 mg/dL High 74-106 [facility] Comment on above: Result Comment: OLGA GEMENT OF PATIENT CARE PER NURSING PROTOCOL Performed By: #### L 501.080 ####[facility] [address] [place], [address] FINGERSTICK GLU 134 mg/dL High 74-106 [facility] Comment on above: Result Comment: OLGA GEMENT OF PATIENT CARE PER NURSING PROTOCOL Performed By: #### L 501.080 ####[facility] [address] [place], [address] FINGERSTICK GLU 143 mg/dL High 74-106 [facility] Comment on above: Result Comment: OLGA GEMENT OF PATIENT CARE PER NURSING PROTOCOL Performed By: #### L 501.080 ####[facility] [address] [place], [address] FINGERSTICK GLU 155 mg/dL High 74-106 [facility] Comment on above: Result Comment: OLGA GEMENT OF PATIENT CARE PER NURSING PROTOCOL Performed By: #### L 501.080 ####[facility] [address] [place], [address] Bedside Glucoseon 09-12-2024 FINGERSTICK GLU 90 mg/dL Normal 74-106 [facility] Comment on above: Result Comment: OLGA GEMENT OF PATIENT CARE PER NURSING PROTOCOL Performed By: #### L 501.080 ####[facility] [address] [place], [address] FINGERSTICK GLU 77 mg/dL Normal 74-106 [facility] Comment on above: Result Comment: OLGA GEMENT OF PATIENT CARE PER NURSING PROTOCOL Performed By: #### L 501.080 ####[facility] [address] [place], [address] FINGERSTICK GLU 98 mg/dL Normal 74-106 [facility] Comment on above: Result Comment: OLGA GEMENT OF PATIENT CARE PER NURSING PROTOCOL Performed By: #### L 501.080 ####[facility] [address] [place], [address] FINGERSTICK GLU 144 mg/dL High 74-106 [facility] Comment on above: Result Comment: OLGA GEMENT OF PATIENT CARE PER NURSING PROTOCOL Performed By: #### L 501.080 ####[facility] [address] [place], [address] FINGERSTICK GLU 137 mg/dL High 74-106 [facility] Comment on above: Result Comment: OLGA GEMENT OF PATIENT CARE PER NURSING PROTOCOL Performed By: #### L 501.080 ####[facility] [address] [facility] [address] Metanephrine Frac 24 HR URon 09-12-2024 Metaneph,UR 24H 147 ug/24 hr Normal 36-209 [facility] Comment on above: Order Comment: Test( s) 588047-Ifjfdmncvwpvurl, Ur; 779357-Wsgkghuhfbqc, Urwas developed and its performance characteristicsdetermined by [facility]. It has not been cleared or approvedby the Food and Drug Administration. Result Comment: Perf ormed at: [facility] [id number] Director: Toni Galicia MD, Phone: [phone] Performed By: #### L 3600.1100 ####[facility] [address] [facility] [address] Metanephrines,U 64 ug/L Normal Undefined [facility] Comment on above: Order Comment: Test( s) 087777-Rhqvdzylvgipenf, Ur; 089508-Sjmakwgqwnsl, Urwas developed and its performance characteristicsdetermined by [facility]. It has not been cleared or approvedby the Food and Drug Administration. Performed By: #### L 3600.1100 ####[facility] [address] [place], [address] Normetan,UR 24h 421 ug/24 hr Normal 131-612 [facility] Comment on above: Order Comment: Test( s) 170577-Xuankjinjbhxtcw, Ur; 735929-Heoomoysqool, Urwas developed and its performance characteristicsdetermined by [facility]. It has not been cleared or approvedby the Food and Drug Administration. Performed By: #### L 3600.1100 ####[facility] [address] [place], [address] Normetanephrine 183 ug/L Normal Undefined [facility] Comment on above: Order Comment: Test( s) 071524-Bitufasqvjkwzwt, Ur; 005314-Xihqbhvcvvdm, Urwas developed and its performance characteristicsdetermined by [employer]. It has not been cleared or approvedby the Food and Drug Administration. Performed By: #### L 3600.1100 ####[facility] [address] [place], [address] Bedside Glucoseon 09-11-2024 FINGERSTICK GLU 228 mg/dL High [address] [place] [address] Comment on above: Result Comment: OLGA GEMENT OF PATIENT CARE PER NURSING PROTOCOL Performed By: #### L 501.080 ####[facility] [address] [place], [address] FINGERSTICK GLU 130 mg/dL High [facility]106 [facility] Comment on above: Result Comment: OLGA GEMENT OF PATIENT CARE PER NURSING PROTOCOL Performed By: #### L 501.080 ####[facility] [address] [place], [address] FINGERSTICK GLU 149 mg/dL High [facility]106 [facility] Comment on above: Result Comment: OLGA GEMENT OF PATIENT CARE PER NURSING PROTOCOL Performed By: #### L 501.080 ####[facility] [address] [place], [address] FINGERSTICK GLU 184 mg/dL High [facility]106 [facility] Comment on above: Result Comment: OLGA GOMEZ OF PATIENT CARE PER NURSING PROTOCOL Performed By: #### L 501.080 ####[facility] [address] [place], [address] Catecholamines, 24 URon 01-3 0-5 Dopamine, Urine 66 ug/L Normal Undefined [facility] Comment on above: Order Comment: Test( s) 621265-Unfzispffcu, Urine; 996127-Qbzspwnwdcmbke, Ur; 176709-Bqnbrkzr, Urinewas developed and its performance characteristicsdetermined by [employer]. It has not been cleared or approvedby the Food and Drug Administration. Performed By: #### L 3600.0150 ####[facility] [address] [place], [address] Dopamine,U,24HR 152 ug/24 hr Normal 0-510 [facility] Comment on above: Order Comment: Test( s) [id number]-Fzsqujveuoi, Urine; 691890-Wjwosytcwviklk, Ur; 522652-Drtwsomt, Urinewas developed and its performance characteristicsdetermined by [employer]. It has not been cleared or approvedby the Food and Drug Administration. Result Comment: Perf ormed at: [address] [id number] Director: Toni Galicia MD, Phone: [phone] TESTING PERFORMED AT [facility]. ORIGINAL REPORT ON FILE IN LAB CONTAINS ADDITIONAL TEST SITE INFORMATION. Performed By: #### L 3600.0150 ####[facility] [address] [place], [address] Epineph.,U,24HR 9 ug/24 hr Normal 0-20 [facility] Comment on above: Order Comment: Test( s) 325759-Rqlbhglcstx, Urine; 244266-Asxecfbhgrulib, Ur; 630465-Jwscfxet, Urinewas developed and its performance characteristicsdetermined by [facility]. It has not been cleared or approvedby the Food and Drug Administration. Performed By: #### L 3600.0150 ####[facility] [address] [place], [place], [address] Epinephrine, U 4 ug/L Normal Undefined [facility] Comment on above: Order Comment: Test( s) 810656-Gqfbwfihmrt, Urine; 346220-Unzrbeouihhbyt, Ur; 560637-Emgxjaiq, Urinewas developed and its performance characteristicsdetermined by [facility]. It has not been cleared or approvedby the Food and Drug Administration. Performed By: #### L 3600.0150 ####[facility] [address] [place], [place], [address] Norepin.,U,24HR 64 ug/24 hr Normal 0-135 [facility] Comment on above: Order Comment: Test( s) 637209-Fwziyahoopi, Urine; 403589-Rfmuevangzkdub, Ur; 916512-Calqovad, Urinewas developed and its performance characteristicsdetermined by [facility]. It has not been cleared or approvedby the Food and Drug Administration. Performed By: #### L 3600.0150 ####[facility] [address] [place], [place], [address] Norepinephrin,U 28 ug/L Normal Undefined [facility] Comment on above: Order Comment: Test( s) 795807-Isuaassbibj, Urine; 407811-Cucrttsqjnjyws, Ur; 772558-Mptdvobo, Urinewas developed and its performance characteristicsdetermined by [facility]. It has not been cleared or approvedby the Food and Drug Administration. Performed By: #### L 3600.0150 ####[facility] [address] [place], [place], [address] Bedside Glucoseon 09-10-2024 FINGERSTICK GLU 133 mg/dL High 74-106 [facility] Comment on above: Result Comment: OLGA GEMENT OF PATIENT CARE PER NURSING PROTOCOL Performed By: #### L 501.080 ####[facility] [address] [place], [address] FINGERSTICK GLU 81 mg/dL Normal 74-106 [facility] Comment on above: Result Comment: OLGA GEMENT OF PATIENT CARE PER NURSING PROTOCOL Performed By: #### L 501.080 ####[facility] [address] [place], [address] FINGERSTICK GLU 57 mg/dL Low 74-106 [facility] Comment on above: Result Comment: OLGA GEMENT OF PATIENT CARE PER NURSING PROTOCOL Performed By: #### L 501.080 ####[facility] [address] [place], [address] FINGERSTICK GLU 208 mg/dL High 74-106 [facility] Comment on above: Result Comment: OLGA GEMENT OF PATIENT CARE PER NURSING PROTOCOL Performed By: #### L 501.080 ####[facility] [address] [place], [address] FINGERSTICK GLU 151 mg/dL High 74-106 [facility] Comment on above: Result Comment: OLGA GEMENT OF PATIENT CARE PER NURSING PROTOCOL Performed By: #### L 501.080 ####[facility] [address] [place], [address] Urine Cultureon 09-10-2024 URC Normal [facility] Comment on above: Performed By: #### M 100.2200 ####[facility] [address] [place], [address] Wound Cultureon 09-10-2024 WC Normal [facility] Comment on above: Performed By: #### M 100.3000, M100.2000 ####[facility] [address] [place], [address] Bedside Glucoseon 09-09-2024 FINGERSTICK GLU 157 mg/dL High 74-106 [facility] Comment on above: Result Comment: OLGA GEMENT OF PATIENT CARE PER NURSING PROTOCOL Performed By: #### L 501.080 ####[facility] [address] [place], [address] FINGERSTICK GLU 50 mg/dL Low 74-106 [facility] Comment on above: Result Comment: OLGA GEMENT OF PATIENT CARE PER NURSING PROTOCOL Performed By: #### L 501.080 ####[facility] [address] [facility] [address] FINGERSTICK GLU 103 mg/dL Normal 74-106 [facility] Comment on above: Result Comment: OLGA GEMENT OF PATIENT CARE PER NURSING PROTOCOL Performed By: #### L 501.080 ####[facility] [address] [place], [address] FINGERSTICK GLU 181 mg/dL High 74-106 [facility] Comment on above: Result Comment: OLGA GEMENT OF PATIENT CARE PER NURSING PROTOCOL Performed By: #### L 501.080 ####[facility] [address] [place], [address] FINGERSTICK GLU 99 mg/dL Normal 74-106 [facility] Comment on above: Result Comment: OLGA GEMENT OF PATIENT CARE PER NURSING PROTOCOL Performed By: #### L 501.080 ####[facility] [address] [place], [address] FINGERSTICK GLU 245 mg/dL High 74-106 [facility] Comment on above: Result Comment: OLGA GEMENT OF PATIENT CARE PER NURSING PROTOCOL Performed By: #### L 501.080 ####[facility] [address] [place], [address] FINGERSTICK GLU 121 mg/dL High 74-106 [facility] Comment on above: Result Comment: OLGA GEMENT OF PATIENT CARE PER NURSING PROTOCOL Performed By: #### L 501.080 ####[facility] [address] [place], [address] Basic Metabolic Profile (BMP )on 09-08-2024 BUN/CRE 20.7 RATIO High 10-20 [facility] Comment on above: Performed By: #### L 501.2300, L100.0500, L500.2500, L501.5200 ####[facility] [address] [place], [address] CA,Total 9.6 mg/dL Normal 8.5-10.1 [facility] Comment on above: Performed By: #### L 501.2300, L100.0500, L500.2500, L501.5200 ####[facility] [address] [place], [address] Chloride [Moles/Vol] 102 mmol/L Normal 98-107 [facility] Comment on above: Performed By: #### L 501.2300, L100.0500, L500.2500, L501.5200 ####[facility] [address] [place], [address] CO2 [Moles/Vol] 26.0 mmol/L Normal 21.0-32.0 [facility] Comment on above: Performed By: #### L 501.2300, L100.0500, L500.2500, L501.5200 ####[facility] [address] [place], [address] Creatinine [Mass/Vol] 0.82 mg/dL Normal 0.55-1.02 [facility] Comment on above: Result Comment: The validity of the calculated GFR GFRAA in patients over70 years has not been determined. Clinical correlation isessential. Performed By: #### L 501.2300, L100.0500, L500.2500, L501.5200 ####[facility] [address] [place], [address] ECRCL 47.91 ml/min Normal [facility] Comment on above: Performed By: #### L 501.2300, L100.0500, L500.2500, L501.5200 ####[facility] [address] [place], [address] EST GFR - AA 86 mL/min Normal >60 [facility] Comment on above: Result Comment: Afri can Bruneian GFR Calc Performed By: #### L 501.2300, L100.0500, L500.2500, L501.5200 ####[facility] [address] [place], [address] GAP 10 Normal 5-15 [facility] Comment on above: Performed By: #### L 501.2300, L100.0500, L500.2500, L501.5200 ####[facility] [address] [place], [address] GFR/1.73 sq M.predicted among non-blacks MDRD (S/P/Bld) [Vol rate/Area] 71 mL/min/{1.73_m2} Normal >60 [facility] Comment on above: Result Comment: Non- GFR Calc Performed By: #### L 501.2300, L100.0500, L500.2500, L501.5200 ####[facility] [address] [place], [address] Glucose [Mass/Vol] 188 mg/dL High 74-106 [facility] Comment on above: Result Comment: Fast ing Glucose result greater than or equal to 126 mg/dLsuggests DIABETES MELLITUS per A.D.A. criteria. Performed By: #### L 501.2300, L100.0500, L500.2500, L501.5200 ####[facility] [address] [place], [address] Potassium [Moles/Vol] 4.4 mmol/L Normal 3.5-5.1 [facility] Comment on above: Performed By: #### L 501.2300, L100.0500, L500.2500, L501.5200 ####[facility] [address] [place], [address] Sodium [Moles/Vol] 138 mmol/L Normal 136-145 [facility] Comment on above: Performed By: #### L 501.2300, L100.0500, L500.2500, L501.5200 ####[facility] [address] [place], [address] Urea nitrogen [Mass/Vol] 17 mg/dL Normal 7-18 [facility] Comment on above: Performed By: #### L 501.2300, L100.0500, L500.2500, L501.5200 ####[facility] [address] [place], [address] Bedside Glucoseon 09-08-2024 FINGERSTICK GLU 182 mg/dL High 74-106 [facility] Comment on above: Result Comment: OLGA GEMENT OF PATIENT CARE PER NURSING PROTOCOL Performed By: #### L 501.080 ####[facility] [address] [place], [address] FINGERSTICK GLU 260 mg/dL High 74-106 [facility] Comment on above: Result Comment: OLGA GEMENT OF PATIENT CARE PER NURSING PROTOCOL Performed By: #### L 501.080 ####[facility] [address] [place], [address] FINGERSTICK GLU 265 mg/dL High 74-106 [facility] Comment on above: Result Comment: OLGA GEMENT OF PATIENT CARE PER NURSING PROTOCOL Performed By: #### L 501.080 ####[facility] [address] [place], [address] FINGERSTICK GLU 205 mg/dL High 74-106 [facility] Comment on above: Result Comment: OLGA GEMENT OF PATIENT CARE PER NURSING PROTOCOL Performed By: #### L 501.080 ####[facility] [address] [place], [address] FINGERSTICK GLU 165 mg/dL High 74-106 [facility] Comment on above: Result Comment: OLGA JASON OF PATIENT CARE PER NURSING PROTOCOL Performed By: #### L 501.080 ####[facility] [address] [place], [address] CBC-Complete Blood Cnt No Di ffon 09-08-2024 Erythrocyte distribution width (RBC) [Ratio] 13.2 % Normal 11.6-14.6 [facility] Comment on above: Performed By: #### L 501.2300, L100.0500, L500.2500, L501.5200 ####[facility] [address] [place], [address] Hematocrit (Bld) [Volume fraction] 36.2 % Low 37-47 [facility] Comment on above: Performed By: #### L 501.2300, L100.0500, L500.2500, L501.5200 ####[facility] [address] [place], [address] Hemoglobin (Bld) [Mass/Vol] 12.1 g/dL Normal 12.0-15.0 [facility] Comment on above: Performed By: #### L 501.2300, L100.0500, L500.2500, L501.5200 ####[facility] [address] [place], [address] MCH (RBC) [Entitic mass] 31.3 pg Normal 27.0-32.0 [facility] Comment on above: Performed By: #### L 501.2300, L100.0500, L500.2500, L501.5200 ####[facility] [address] [place], [address] MCHC (RBC) [Mass/Vol] 33.4 g/dL Normal 32-36 [facility] Comment on above: Performed By: #### L 501.2300, L100.0500, L500.2500, L501.5200 ####[facility] [address] [place], [address] MCV (RBC) [Entitic vol] 93.8 fL Normal 81-99 [facility] Comment on above: Performed By: #### L 501.2300, L100.0500, L500.2500, L501.5200 ####[facility] [address] [place], [address] Platelet mean volume (Bld) [Entitic vol] 9.6 fL Normal 6.2-12.0 [facility] Comment on above: Performed By: #### L 501.2300, L100.0500, L500.2500, L501.5200 ####[facility] [address] [place], [address] Platelets (Bld) [#/Vol] 312 10*3/uL Normal 150-450 [facility] Comment on above: Performed By: #### L 501.2300, L100.0500, L500.2500, L501.5200 ####[facility] [address] [place], [address] RBC (Bld) [#/Vol] 3.86 10*6/uL Low 4.2-5.4 [facility] Comment on above: Performed By: #### L 501.2300, L100.0500, L500.2500, L501.5200 ####[facility] [address] [place], [address] RDW SD 44.8 fl High 35.1-43.9 [facility] Comment on above: Performed By: #### L 501.2300, L100.0500, L500.2500, L501.5200 ####[facility] [address] [place], [address] WBC (Bld) [#/Vol] 9.6 10*3/uL Normal 4.4-11.0 [facility] Comment on above: Performed By: #### L 501.2300, L100.0500, L500.2500, L501.5200 ####[facility] [address] [place], [address] Gram Stainon 09-08-2024 peg site Gram Stain 4+ Gram negative rods No Epithelial cells 1+ Red Blood Cells Normal [facility] Comment on above: Performed By: #### M 100.3000, M100.2000 ####[facility] [address] [place], [address] Magnesiumon 09-08-2024 Magnesium [Mass/Vol] 1.8 mg/dL Normal 1.6-2.6 [facility] Comment on above: Performed By: #### L 501.2300, L100.0500, L500.2500, L501.5200 ####[facility] [address] [place], [address] Phosphoruson 09-08-2024 Phosphate [Mass/Vol] 4.8 mg/dL Normal 2.5-4.9 [facility] Comment on above: Performed By: #### L 501.2300, L100.0500, L500.2500, L501.5200 ####[facility] [address] [place], [address] Urinalysis, Completeon 09-08 RBC 0-5 SEEN Normal 0-5 [facility] Comment on above: Order Comment: KEYANA TER SPECIMEN Performed By: #### L 400.0001 ####[facility] [address] [place], [address] BACTERIA 2+ /hpf Normal None Seen [facility] Comment on above: Order Comment: KEYANA TER SPECIMEN Performed By: #### L 400.0001 ####[facility] [address] [place], [address] WBC >100 SEEN Normal 0-5 [facility] Comment on above: Order Comment: KEYANA TER SPECIMEN Performed By: #### L 400.0001 ####[facility] [address] [place], [address] EPI,SQUAMOUS 0 SEEN Normal 5-10 [facility] Comment on above: Order Comment: KEYANA TER SPECIMEN Performed By: #### L 400.0001 ####[facility] [address] [place], [address] Mucus Ql (Urine sed) 0 SEEN Normal [facility] Comment on above: Order Comment: KEYANA TER SPECIMEN Performed By: #### L 400.0001 ####[facility] [address] [place], [address] Bedside Glucoseon 09-07-2024 FINGERSTICK GLU 244 mg/dL High 74-106 [facility] Comment on above: Result Comment: OLGA GEMENT OF PATIENT CARE PER NURSING PROTOCOL Performed By: #### L 501.080 ####[facility] [address] [place], [address] FINGERSTICK GLU 228 mg/dL High 74-106 [facility] Comment on above: Result Comment: OLGA GEMENT OF PATIENT CARE PER NURSING PROTOCOL Performed By: #### L 501.080 ####[facility] [address] [place], [address] FINGERSTICK GLU 278 mg/dL High 74-106 [facility] Comment on above: Result Comment: OLGA GEMENT OF PATIENT CARE PER NURSING PROTOCOL Performed By: #### L 501.080 ####[facility] [address] [place], [address] FINGERSTICK GLU 215 mg/dL High 74-106 [facility] Comment on above: Result Comment: OLGA GEMENT OF PATIENT CARE PER NURSING PROTOCOL Performed By: #### L 501.080 ####[facility] [address] [place], [address] FINGERSTICK GLU 277 mg/dL High 74-106 [facility] Comment on above: Result Comment: OLGA GEMENT OF PATIENT CARE PER NURSING PROTOCOL Performed By: #### L 501.080 ####[facility] [address] [place], [address] FINGERSTICK GLU 232 mg/dL High 74-106 [facility] Comment on above: Result Comment: OLGA GEMENT OF PATIENT CARE PER NURSING PROTOCOL Performed By: #### L 501.080 ####[facility] [address] [place], [address] FINGERSTICK GLU 114 mg/dL High [address] [place] [address] Comment on above: Result Comment: OLGA GEMENT OF PATIENT CARE PER NURSING PROTOCOL Performed By: #### L 501.080 ####[facility] [address] [place], [address] Bedside Glucoseon 09-06-2024 FINGERSTICK GLU 197 mg/dL High -[address] [place] [address] Comment on above: Result Comment: OLGA GEMENT OF PATIENT CARE PER NURSING PROTOCOL Performed By: #### L 501.080 ####[facility] [address] [place], [address] FINGERSTICK GLU 221 mg/dL High [address] [place] [address] Comment on above: Result Comment: OLGA GEMENT OF PATIENT CARE PER NURSING PROTOCOL Performed By: #### L 501.080 ####[facility] [address] [place], [address] FINGERSTICK GLU 238 mg/dL High [address] [place] [address] Comment on above: Result Comment: OLGA GEMENT OF PATIENT CARE PER NURSING PROTOCOL Performed By: #### L 501.080 ####[facility] [address] [place], [address] FINGERSTICK GLU 209 mg/dL High 74-106 [facility] Comment on above: Result Comment: OLGA GEMENT OF PATIENT CARE PER NURSING PROTOCOL Performed By: #### L 501.080 ####[facility] [address] [place], [address] FINGERSTICK GLU 171 mg/dL High 74-106 [facility] Comment on above: Result Comment: OLGA GEMENT OF PATIENT CARE PER NURSING PROTOCOL Performed By: #### L 501.080 ####[facility] [address] [place], [address] Basic Metabolic Profile (BMP )on 09-05-2024 BUN Normal 7-18 [facility] Comment on above: Result Comment: Canc elled via OM: Order cancelled - Patient discharged Performed By: #### L 500.2500, L100.0100 ####[facility] [address] [place], [address] BUN/CRE Normal 10-20 [facility] Comment on above: Result Comment: Canc elled via OM: Order cancelled - Patient discharged Performed By: #### L 500.2500, L100.0100 ####[facility] [address] [place], [address] CA,Total Normal 8.5-10.1 [facility] Comment on above: Result Comment: Canc elled via OM: Order cancelled - Patient discharged Performed By: #### L 500.2500, L100.0100 ####[facility] [address] [place], [address] CL Normal 98-107 [facility] Comment on above: Result Comment: Canc elled via OM: Order cancelled - Patient discharged Performed By: #### L 500.2500, L100.0100 ####[facility] [address] [place], [address] CO2 Normal 21.0-32.0 [facility] Comment on above: Result Comment: Canc elled via OM: Order cancelled - Patient discharged Performed By: #### L 500.2500, L100.0100 ####[facility] [address] [place], [address] CREAT,SERUM Normal 0.55-1.02 [facility] Comment on above: Result Comment: Canc elled via OM: Order cancelled - Patient discharged Performed By: #### L 500.2500, L100.0100 ####[facility] [address] [place], [address] EST GFR Normal >60 [facility] Comment on above: Result Comment: Canc elled via OM: Order cancelled - Patient discharged Performed By: #### L 500.2500, L100.0100 ####[facility] [address] [place], [address] EST GFR - AA Normal >60 [facility] Comment on above: Result Comment: Canc elled via OM: Order cancelled - Patient discharged Performed By: #### L 500.2500, L100.0100 ####[facility] [address] [place], [address] GAP Normal 5-15 [facility] Comment on above: Result Comment: Canc elled via OM: Order cancelled - Patient discharged Performed By: #### L 500.2500, L100.0100 ####[facility] [address] [place], [address] GLU Normal 74-106 [facility] Comment on above: Result Comment: Canc elled via OM: Order cancelled - Patient discharged Performed By: #### L 500.2500, L100.0100 ####[facility] [address] [place], [address] Potassium Normal 3.5-5.1 [facility] Comment on above: Result Comment: Canc elled via OM: Order cancelled - Patient discharged Performed By: #### L 500.2500, L100.0100 ####[facility] [address] [place], [address] Basic Metabolic Profile (BMP) Normal 136-145 [facility] Comment on above: Result Comment: Canc elled via OM: Order cancelled - Patient discharged Performed By: #### L 500.2500, L100.0100 ####[facility] [address] [place], [address] Bedside Glucoseon 09-05-2024 FINGERSTICK GLU 209 mg/dL High 74-106 [facility] Comment on above: Result Comment: OLGA GEMENT OF PATIENT CARE PER NURSING PROTOCOL Performed By: #### L 501.080 ####[facility] [address] [place], [address] FINGERSTICK GLU 265 mg/dL High 74-106 [facility] Comment on above: Result Comment: OLGA GEMENT OF PATIENT CARE PER NURSING PROTOCOL Performed By: #### L 501.080 ####[facility] [address] [place], [address] FINGERSTICK GLU 203 mg/dL High 74-106 [facility] Comment on above: Result Comment: OLGA GEMENT OF PATIENT CARE PER NURSING PROTOCOL Performed By: #### L 501.080 ####[facility] [address] [place], [address] FINGERSTICK GLU 215 mg/dL High 74-106 [facility] Comment on above: Result Comment: OLGA GEMENT OF PATIENT CARE PER NURSING PROTOCOL Performed By: #### L 501.080 ####[facility] [address] [place], [address] FINGERSTICK GLU 224 mg/dL High 74-106 [facility] Comment on above: Result Comment: OLGA GEMENT OF PATIENT CARE PER NURSING PROTOCOL Performed By: #### L 501.080 ####[facility] [address] [place], [address] CBC W/Diff, Automatedon 01-2 Absolute Neut Normal 2.0-7.7 [facility] Comment on above: Result Comment: Canc elled via OM: Order cancelled - Patient discharged Performed By: #### L 500.2500, L100.0100 ####[facility] [address] [place], [address] HCT Normal 37-47 [facility] Comment on above: Result Comment: Canc elled via OM: Order cancelled - Patient discharged Performed By: #### L 500.2500, L100.0100 ####[facility] [address] [place], [address] HGB Normal 12.0-15.0 [facility] Comment on above: Result Comment: Canc elled via OM: Order cancelled - Patient discharged Performed By: #### L 500.2500, L100.0100 ####[facility] [address] [place], [address] MCH Normal 27.0-32.0 [facility] Comment on above: Result Comment: Canc elled via OM: Order cancelled - Patient discharged Performed By: #### L 500.2500, L100.0100 ####[facility] [address] [place], [address] MCHC Normal 32-36 [facility] Comment on above: Result Comment: Canc elled via OM: Order cancelled - Patient discharged Performed By: #### L 500.2500, L100.0100 ####[facility] [address] [place], [address] MCV Normal 81-99 [facility] Comment on above: Result Comment: Canc elled via OM: Order cancelled - Patient discharged Performed By: #### L 500.2500, L100.0100 ####[facility] [address] [place], [address] NEUT% Normal 47-70 [facility] Comment on above: Result Comment: Canc elled via OM: Order cancelled - Patient discharged Performed By: #### L 500.2500, L100.0100 ####[facility] [address] [place], [address] PLT Normal 150-450 [facility] Comment on above: Result Comment: Canc elled via OM: Order cancelled - Patient discharged Performed By: #### L 500.2500, L100.0100 ####[facility] [address] [place], [address] RBC Normal 4.2-5.4 [facility] Comment on above: Result Comment: Canc elled via OM: Order cancelled - Patient discharged Performed By: #### L 500.2500, L100.0100 ####[facility] [address] [place], [address] RDW CV Normal 11.6-14.6 [facility] Comment on above: Result Comment: Canc elled via OM: Order cancelled - Patient discharged Performed By: #### L 500.2500, L100.0100 ####[facility] [address] [place], [address] RDW SD Normal 35.1-43.9 [facility] Comment on above: Result Comment: Canc elled via OM: Order cancelled - Patient discharged Performed By: #### L 500.2500, L100.0100 ####[facility] [address] [place], [address] WBC Normal 4.4-11.0 [facility] Comment on above: Result Comment: Canc elled via OM: Order cancelled - Patient discharged Performed By: #### L 500.2500, L100.0100 ####[facility] [address] [place], [address] Bedside Glucoseon 09-04-2024 FINGERSTICK GLU 233 mg/dL High [address] [place] [address] Comment on above: Result Comment: OLGA GEMENT OF PATIENT CARE PER NURSING PROTOCOL Performed By: #### L 501.080 ####[facility] [address] [place], [address] FINGERSTICK GLU 366 mg/dL High [address] [place] [address] Comment on above: Result Comment: OLGA GEMENT OF PATIENT CARE PER NURSING PROTOCOL Performed By: #### L 501.080 ####[facility] [address] [facility] [address] FINGERSTICK GLU 302 mg/dL High [address] [place] [address] Comment on above: Result Comment: OLGA GEMENT OF PATIENT CARE PER NURSING PROTOCOL Performed By: #### L 501.080 ####[facility] [address] [facility] [address] FINGERSTICK GLU 344 mg/dL High [address] [place] [address] Comment on above: Result Comment: OLGA GEMENT OF PATIENT CARE PER NURSING PROTOCOL Performed By: #### L 501.080 ####[facility] [address] [place], [address] FINGERSTICK GLU 312 mg/dL High [address] [place] [address] Comment on above: Result Comment: OLGA GEMENT OF PATIENT CARE PER NURSING PROTOCOL Performed By: #### L 501.080 ####[facility] [address] [place], [address] Bedside Glucoseon 09-03-2024 FINGERSTICK GLU 277 mg/dL High [address] [place] [address] Comment on above: Result Comment: OLGA GEMENT OF PATIENT CARE PER NURSING PROTOCOL Performed By: #### L 501.080 ####[facility] [address] [place], [address] FINGERSTICK GLU 283 mg/dL High [address] [place] [address] Comment on above: Result Comment: OLGA GEMENT OF PATIENT CARE PER NURSING PROTOCOL Performed By: #### L 501.080 ####[facility] [address] [place], [address] FINGERSTICK GLU 251 mg/dL High 74-106 [facility] Comment on above: Result Comment: OLGA GEMENT OF PATIENT CARE PER NURSING PROTOCOL Performed By: #### L 501.080 ####[facility] [address] [place], [address] FINGERSTICK GLU 234 mg/dL High 74-106 [facility] Comment on above: Result Comment: OLGA GEMENT OF PATIENT CARE PER NURSING PROTOCOL Performed By: #### L 501.080 ####[facility] [address] [place], [address] FINGERSTICK GLU 263 mg/dL High 74-106 [facility] Comment on above: Result Comment: OLGA GEMENT OF PATIENT CARE PER NURSING PROTOCOL Performed By: #### L 501.080 ####[facility] [address] [place], [address] Basic Metabolic Profile (BMP )on 09-02-2024 BUN/CRE 14.7 RATIO Normal 10-20 [facility] Comment on above: Performed By: #### L 100.0600, L500.2500 ####[facility] [address] [place], [address] CA,Total 9.3 mg/dL Normal 8.5-10.1 [facility] Comment on above: Performed By: #### L 100.0600, L500.2500 ####[facility] [address] [place], [address] Chloride [Moles/Vol] 105 mmol/L Normal 98-107 [facility] Comment on above: Performed By: #### L 100.0600, L500.2500 ####[facility] [address] [place], [address] CO2 [Moles/Vol] 24.0 mmol/L Normal 21.0-32.0 [facility] Comment on above: Performed By: #### L 100.0600, L500.2500 ####[facility] [address] [place], [address] Creatinine [Mass/Vol] 0.75 mg/dL Normal 0.55-1.02 [facility] Comment on above: Result Comment: The validity of the calculated GFR GFRAA in patients over70 years has not been determined. Clinical correlation isessential. Performed By: #### L 100.0600, L500.2500 ####[facility] [address] [place], [address] ECRCL 49.35 ml/min Normal [facility] Comment on above: Performed By: #### L 100.0600, L500.2500 ####[facility] [address] [place], [address] EST GFR - AA 96 mL/min Normal >60 [facility] Comment on above: Result Comment: Afri can [place]uneian GFR Calc Performed By: #### L 100.0600, L500.2500 ####[facility] [address] [place], [address] GAP 8 Normal 5-15 [facility] Comment on above: Performed By: #### L 100.0600, L500.2500 ####[facility] [address] [place], [address] GFR/1.73 sq M.predicted among non-blacks MDRD (S/P/Bld) [Vol rate/Area] 79 mL/min/{1.73_m2} Normal >60 [facility] Comment on above: Result Comment: Non- GFR Calc Performed By: #### L 100.0600, L500.2500 ####[facility] [address] [place], [address] Glucose [Mass/Vol] 380 mg/dL High 74-106 [facility] Comment on above: Result Comment: Gluc ose result greater than or equal to 200 mg/dLsuggests DIABETES MELLITUS per A.D.A. criteria. Performed By: #### L 100.0600, L500.2500 ####[facility] [address] [place], [address] Potassium [Moles/Vol] 3.9 mmol/L Normal 3.5-5.1 [facility] Comment on above: Performed By: #### L 100.0600, L500.2500 ####[facility] [address] [place], [address] Sodium [Moles/Vol] 137 mmol/L Normal 136-145 [facility] Comment on above: Performed By: #### L 100.0600, L500.2500 ####[facility] [address] [place], [address] Urea nitrogen [Mass/Vol] 11 mg/dL Normal 7-18 [facility] Comment on above: Performed By: #### L 100.0600, L500.2500 ####[facility] [address] [place], [address] Bedside Glucoseon 09-02-2024 FINGERSTICK GLU 261 mg/dL High [address] [place] [address] Comment on above: Result Comment: OLGA GEMENT OF PATIENT CARE PER NURSING PROTOCOL Performed By: #### L 501.080 ####[facility] [address] [place], [address] FINGERSTICK GLU 320 mg/dL High [address] [place] [address] Comment on above: Result Comment: OLGA GEMENT OF PATIENT CARE PER NURSING PROTOCOL Performed By: #### L 501.080 ####[facility] [address] [place], [address] FINGERSTICK GLU 338 mg/dL High [facility]106 [facility] Comment on above: Result Comment: OLGA GEMENT OF PATIENT CARE PER NURSING PROTOCOL Performed By: #### L 501.080 ####[facility] [address] [place], [address] FINGERSTICK GLU 368 mg/dL High 74-106 [facility] Comment on above: Result Comment: OLGA GEMENT OF PATIENT CARE PER NURSING PROTOCOL Performed By: #### L 501.080 ####[facility] [address] [place], [address] FINGERSTICK GLU 287 mg/dL High 74-106 [facility] Comment on above: Result Comment: OLGA GEMENT OF PATIENT CARE PER NURSING PROTOCOL Performed By: #### L 501.080 ####[facility] [address] [place], [address] HH, Hemoglobin AND Hematocri ton 09-02-2024 Hematocrit (Bld) [Volume fraction] 36.7 % Low 37-47 [facility] Comment on above: Performed By: #### L 100.0600, L500.2500 ####[facility] [address] [place], [address] Hemoglobin (Bld) [Mass/Vol] 12.7 g/dL Normal 12.0-15.0 [facility] Comment on above: Performed By: #### L 100.0600, L500.2500 ####[facility] [address] [place], [address] Urine Cultureon 09-02-2024 URC Yeast, not Shanna a lbicans [place] Count 25,000-50,000 Normal [facility] Comment on above: Performed By: #### M 100.2200 ####[facility] [address] [place], [address] Bedside Glucoseon 09-01-2024 FINGERSTICK GLU 301 mg/dL High 74-106 [facility] Comment on above: Result Comment: OLGA GEMENT OF PATIENT CARE PER NURSING PROTOCOL Performed By: #### L 501.080 ####[facility] [address] [place], [address] FINGERSTICK GLU 349 mg/dL High [facility]106 [facility] Comment on above: Result Comment: OLGA GEMENT OF PATIENT CARE PER NURSING PROTOCOL Performed By: #### L 501.080 ####[facility] [address] [place], [address] FINGERSTICK GLU 240 mg/dL High [facility]106 [facility] Comment on above: Result Comment: OLGA GEMENT OF PATIENT CARE PER NURSING PROTOCOL Performed By: #### L 501.080 ####[facility] [address] [place], [address] FINGERSTICK GLU 333 mg/dL High [address] [place] [address] Comment on above: Result Comment: OLGA GEMENT OF PATIENT CARE PER NURSING PROTOCOL Performed By: #### L 501.080 ####[facility] [address] [place], [address] FINGERSTICK GLU 222 mg/dL High [facility]106 [facility] Comment on above: Result Comment: OLGA GEMENT OF PATIENT CARE PER NURSING PROTOCOL Performed By: #### L 501.080 ####[facility] [address] [place], [address] FINGERSTICK GLU 268 mg/dL High [address] [place] [address] Comment on above: Result Comment: OLGA GEMENT OF PATIENT CARE PER NURSING PROTOCOL Performed By: #### L 501.080 ####[facility] [address] [place], [address] Blood Gases by [facility] 025 Base excess Calc (Bld) [Moles/Vol] -3 mmol/L Low -2 to +2 [facility] Comment on above: Performed By: #### L 9000.0800 ####[facility] [address] [place], [address] Blood Gas Type ART Normal [facility] Comment on above: Performed By: #### L 9000.0800 ####[facility] [address] [place], [address] CO2 [Moles/Vol] 23 mmol/L Normal [facility] Comment on above: Performed By: #### L 9000.0800 ####[facility] [address] [place], [address] FI02 21.0 Normal [facility] Comment on above: Performed By: #### L 9000.0800 ####[facility] [address] [place], [address] HCO3 (Bld) [Moles/Vol] 21.7 mmol/L Low 22-26 [facility] Comment on above: Performed By: #### L 9000.0800 ####[facility] [address] [place], [address] Mode Not entered [facility] Comment on above: Performed By: #### L 9000.0800 ####[facility] [address] [place], [address] O2 Delivery Dev Not entered [facility] Comment on above: Performed By: #### L 9000.0800 ####[facility] [address] [place], [address] pCO2 35.5 mmHg Normal 35-45 [facility] Comment on above: Performed By: #### L 9000.0800 ####[facility] [address] [place], [address] pH (Bld) 7.39 [pH] Normal 7.35-7.45 [facility] Comment on above: Performed By: #### L 9000.0800 ####[facility] [address] [place], [address] PO2 69 mmHG Low 75-100 [facility] Comment on above: Performed By: #### L 9000.0800 ####[facility] [address] [place], [address] SITE L Brach Normal [facility] Comment on above: Performed By: #### L 9000.0800 ####[facility] [address] [place], [address] SO2 94 Low 95-99 [facility] Comment on above: Performed By: #### L 9000.0800 ####[facility] [address] [place], [address] Bedside Glucoseon 08-31-2024 FINGERSTICK GLU 222 mg/dL High 74-106 [facility] Comment on above: Result Comment: OLGA GEMENT OF PATIENT CARE PER NURSING PROTOCOL Performed By: #### L 501.080 ####[facility] [address] [place], [address] FINGERSTICK GLU 335 mg/dL High 74-106 [facility] Comment on above: Result Comment: OLGA GEMENT OF PATIENT CARE PER NURSING PROTOCOL Performed By: #### L 501.080 ####[facility] [address] [place], [address] FINGERSTICK GLU 284 mg/dL High 74-106 [facility] Comment on above: Result Comment: OLGA GEMENT OF PATIENT CARE PER NURSING PROTOCOL Performed By: #### L 501.080 ####[facility] [address] [place], [address] Bedside Glucoseon 5 FINGERSTICK GLU 232 mg/dL High 74-106 [facility] Comment on above: Result Comment: OLGA GEMENT OF PATIENT CARE PER NURSING PROTOCOL Performed By: #### L 501.080 ####[facility] [address] [place], [address] FINGERSTICK GLU 289 mg/dL High 74-106 [facility] Comment on above: Result Comment: OLGA GEMENT OF PATIENT CARE PER NURSING PROTOCOL Performed By: #### L 501.080 ####[facility] [address] [place], [address] FINGERSTICK GLU 251 mg/dL High 74-106 [facility] Comment on above: Result Comment: OLGA GEMENT OF PATIENT CARE PER NURSING PROTOCOL Performed By: #### L 501.080 ####[facility] [address] [place], [address] FINGERSTICK GLU 335 mg/dL High -106 [facility] Comment on above: Result Comment: OLGA GEMENT OF PATIENT CARE PER NURSING PROTOCOL Performed By: #### L 501.080 ####[facility] [address] [place], [address] FINGERSTICK GLU 310 mg/dL High -[address] [place] [address] Comment on above: Result Comment: OLGA GEMENT OF PATIENT CARE PER NURSING PROTOCOL Performed By: #### L 501.080 ####[facility] [address] [place], [address] CBC W/Diff, Automatedon 08-13 Absolute Lymph 1.02 X10 3/uL Normal 0.83-4.51 [facility] Comment on above: Performed By: #### L 501.2300, L500.4050, L501.5200, L506.0400, L100.0100 ####[facility] [address] [place], [address] Absolute Neut 5.0 X10 3/uL Normal 2.0-7.7 [facility] Comment on above: Performed By: #### L 501.2300, L500.4050, L501.5200, L506.0400, L100.0100 ####[facility] [address] [place], [address] Basophils/100 WBC (Bld) 0.7 % Normal 0-1 [facility] Comment on above: Performed By: #### L 501.2300, L500.4050, L501.5200, L506.0400, L100.0100 ####[facility] [address] [place], [address] Eosinophils/100 WBC (Bld) 4.5 % Normal 0-5 [facility] Comment on above: Performed By: #### L 501.2300, L500.4050, L501.5200, L506.0400, L100.0100 ####[facility] [address] [place], [address] Erythrocyte distribution width (RBC) [Ratio] 13.4 % Normal 11.6-14.6 [facility] Comment on above: Performed By: #### L 501.2300, L500.4050, L501.5200, L506.0400, L100.0100 ####[facility] [address] [place], [address] Hematocrit (Bld) [Volume fraction] 32.3 % Low 37-47 [facility] Comment on above: Performed By: #### L 501.2300, L500.4050, L501.5200, L506.0400, L100.0100 ####[facility] [address] [place], [address] Hemoglobin (Bld) [Mass/Vol] 10.6 g/dL Low 12.0-15.0 [facility] Comment on above: Performed By: #### L 501.2300, L500.4050, L501.5200, L506.0400, L100.0100 ####[facility] [address] [place], [address] IG% 0.700 Normal 0.0-0.9 [facility] Comment on above: Result Comment: IG% - Immature Granulocytes (promyelocytes, myelocytes andmetamyelocytes) > 1% indicates that a LEFT SHIFT is Present. Performed By: #### L 501.2300, L500.4050, L501.5200, L506.0400, L100.0100 ####[facility] [address] [place], [address] Lymphocytes/100 WBC (Bld) 13.9 % Low 19-41 [facility] Comment on above: Performed By: #### L 501.2300, L500.4050, L501.5200, L506.0400, L100.0100 ####[facility] [address] [place], [address] MCH (RBC) [Entitic mass] 31.4 pg Normal 27.0-32.0 [facility] Comment on above: Performed By: #### L 501.2300, L500.4050, L501.5200, L506.0400, L100.0100 ####[facility] [address] [place], [address] MCHC (RBC) [Mass/Vol] 32.8 g/dL Normal 32-36 [facility] Comment on above: Performed By: #### L 501.2300, L500.4050, L501.5200, L506.0400, L100.0100 ####[facility] [address] [place], [address] MCV (RBC) [Entitic vol] 95.6 fL Normal 81-99 [facility] Comment on above: Performed By: #### L 501.2300, L500.4050, L501.5200, L506.0400, L100.0100 ####[facility] [address] [place], [address] Monocytes/100 WBC (Bld) 12.2 % High 0-10 [facility] Comment on above: Performed By: #### L 501.2300, L500.4050, L501.5200, L506.0400, L100.0100 ####[facility] [address] [place], [address] Neutrophils/100 WBC (Bld) 68.0 % Normal 47-70 [facility] Comment on above: Performed By: #### L 501.2300, L500.4050, L501.5200, L506.0400, L100.0100 ####[facility] [address] [place], [address] Nucleated RBC (Bld) [#/Vol] 0 10*3/uL Normal 0-5 [facility] Comment on above: Performed By: #### L 501.2300, L500.4050, L501.5200, L506.0400, L100.0100 ####[facility] [address] [place], [address] Platelet mean volume (Bld) [Entitic vol] 9.8 fL Normal 6.2-12.0 [facility] Comment on above: Performed By: #### L 501.2300, L500.4050, L501.5200, L506.0400, L100.0100 ####[facility] [address] [place], [address] Platelets (Bld) [#/Vol] 258 10*3/uL Normal 150-450 [facility] Comment on above: Performed By: #### L 501.2300, L500.4050, L501.5200, L506.0400, L100.0100 ####[facility] [address] [place], [address] RBC (Bld) [#/Vol] 3.38 10*6/uL Low 4.2-5.4 [facility] Comment on above: Performed By: #### L 501.2300, L500.4050, L501.5200, L506.0400, L100.0100 ####[facility] [address] [place], [address] RDW SD 46.3 fl High 35.1-43.9 [facility] Comment on above: Performed By: #### L 501.2300, L500.4050, L501.5200, L506.0400, L100.0100 ####[facility] [address] [place], [address] WBC (Bld) [#/Vol] 7.3 10*3/uL Normal 4.4-11.0 [facility] Comment on above: Performed By: #### L 501.2300, L500.4050, L501.5200, L506.0400, L100.0100 ####[facility] [address] [place], [address] Comprehensive Metabolic Prof [facility] 08-30-2024 Albumin [Mass/Vol] 2.7 g/dL Low 3.2-5.0 [facility] Comment on above: Performed By: #### L 501.2300, L500.4050, L501.5200, L506.0400, L100.0100 ####[facility] [address] [place], [address] Albumin/Globulin [Mass ratio] 0.8 {ratio} Low 0.9-2.4 [facility] Comment on above: Performed By: #### L 501.2300, L500.4050, L501.5200, L506.0400, L100.0100 ####[facility] [address] [place], [address] ALK P 77 U/L Normal 45-117 [facility] Comment on above: Performed By: #### L 501.2300, L500.4050, L501.5200, L506.0400, L100.0100 ####[facility] [address] [place], [address] ALT [Catalytic activity/Vol] 18 U/L Normal 13-56 [facility] Comment on above: Performed By: #### L 501.2300, L500.4050, L501.5200, L506.0400, L100.0100 ####[facility] [address] [place], [address] AST [Catalytic activity/Vol] 12 U/L Low 15-37 [facility] Comment on above: Performed By: #### L 501.2300, L500.4050, L501.5200, L506.0400, L100.0100 ####[facility] [address] [place], [address] Bilirubin [Mass/Vol] 0.40 mg/dL Normal 0.20-1.00 [facility] Comment on above: Result Comment: For patients on eltrombopag therapy, use of Dimension Loyal TBIL is not recommended. Performed By: #### L 501.2300, L500.4050, L501.5200, L506.0400, L100.0100 ####[facility] [address] [place], [address] BUN/CRE 31.3 RATIO High 10-20 [facility] Comment on above: Performed By: #### L 501.2300, L500.4050, L501.5200, L506.0400, L100.0100 ####[facility] [address] [place], [address] CA,Total 8.4 mg/dL Low 8.5-10.1 [facility] Comment on above: Performed By: #### L 501.2300, L500.4050, L501.5200, L506.0400, L100.0100 ####[facility] [address] [place], [address] Chloride [Moles/Vol] 110 mmol/L High 98-107 [facility] Comment on above: Performed By: #### L 501.2300, L500.4050, L501.5200, L506.0400, L100.0100 ####[facility] [address] [place], [address] CO2 [Moles/Vol] 19.0 mmol/L Low 21.0-32.0 [facility] Comment on above: Performed By: #### L 501.2300, L500.4050, L501.5200, L506.0400, L100.0100 ####[facility] [address] [place], [address] Creatinine [Mass/Vol] 0.67 mg/dL Normal 0.55-1.02 [facility] Comment on above: Result Comment: The validity of the calculated GFR GFRAA in patients over70 years has not been determined. Clinical correlation isessential. Performed By: #### L 501.2300, L500.4050, L501.5200, L506.0400, L100.0100 ####[facility] [address] [place], [address] ECRCL 49.33 ml/min Normal [facility] Comment on above: Performed By: #### L 501.2300, L500.4050, L501.5200, L506.0400, L100.0100 ####[facility] [address] [place], [address] EST GFR - AA 108 mL/min Normal >60 [facility] Comment on above: Result Comment: Afri can Brune[place] GFR Calc Performed By: #### L 501.2300, L500.4050, L501.5200, L506.0400, L100.0100 ####[facility] [address] [place], [address] GAP 8 Normal 5-15 [facility] Comment on above: Performed By: #### L 501.2300, L500.4050, L501.5200, L506.0400, L100.0100 ####[facility] [address] [place], [address] GFR/1.73 sq M.predicted among non-blacks MDRD (S/P/Bld) [Vol rate/Area] 90 mL/min/{1.73_m2} Normal >60 [facility] Comment on above: Result Comment: Non- GFR Calc Performed By: #### L 501.2300, L500.4050, L501.5200, L506.0400, L100.0100 ####[facility] [address] [place], [address] Globulin (S) [Mass/Vol] 3.5 g/dL Normal 2.2-4.2 [facility] Comment on above: Performed By: #### L 501.2300, L500.4050, L501.5200, L506.0400, L100.0100 ####[facility] [address] [place], [address] Glucose [Mass/Vol] 291 mg/dL High 74-106 [facility] Comment on above: Result Comment: Gluc ose result greater than or equal to 200 mg/dLsuggests DIABETES MELLITUS per A.D.A. criteria. Performed By: #### L 501.2300, L500.4050, L501.5200, L506.0400, L100.0100 ####[facility] [address] [place], [address] Potassium [Moles/Vol] 3.6 mmol/L Normal 3.5-5.1 [facility] Comment on above: Performed By: #### L 501.2300, L500.4050, L501.5200, L506.0400, L100.0100 ####[facility] [address] [place], [address] Sodium [Moles/Vol] 137 mmol/L Normal 136-145 [facility] Comment on above: Performed By: #### L 501.2300, L500.4050, L501.5200, L506.0400, L100.0100 ####[facility] [address] [place], [address] T PROT 6.2 g/dL Low 6.4-8.2 [facility] Comment on above: Performed By: #### L 501.2300, L500.4050, L501.5200, L506.0400, L100.0100 ####[facility] [address] [place], [address] Urea nitrogen [Mass/Vol] 21 mg/dL High 7-18 [facility] Comment on above: Performed By: #### L 501.2300, L500.4050, L501.5200, L506.0400, L100.0100 ####[facility] [address] [place], [address] Magnesiumon 08-30-2024 Magnesium [Mass/Vol] 2.1 mg/dL Normal 1.6-2.6 [facility] Comment on above: Performed By: #### L 501.2300, L500.4050, L501.5200, L506.0400, L100.0100 ####[facility] [address] [place], [address] Phosphoruson 08-30-2024 Phosphate [Mass/Vol] 2.4 mg/dL Low 2.5-4.9 [facility] Comment on above: Performed By: #### L 501.2300, L500.4050, L501.5200, L506.0400, L100.0100 ####[facility] [address] [place], [address] T4 Free Directon 08-30-2024 T4 FREE DIRECT 1.08 ng/dL Normal 0.76-1.46 [facility] Comment on above: Performed By: #### L 501.2300, L500.4050, L501.5200, L506.0400, L100.0100 ####[facility] [address] [place], [address] Acetone Serumon 08-29-2024 ACETONE SERUM SMALL Abnormal NEG [facility] Comment on above: Result Comment: RESU LTS CALLED TO CORINE LAMAS RN 08/29/24 1740 Julio CésarahWolwest.REPORT READ BACK BY . SAME Performed By: #### L 500.2500, L501.6900 ####[facility] [address] [place], [address] Basic Metabolic Profile (BMP )on 08-29-2024 BUN/CRE 29.9 RATIO High 10-20 [facility] Comment on above: Performed By: #### L 500.2500, L501.6900 ####[facility] [address] [place], [address] CA,Total 9.8 mg/dL Normal 8.5-10.1 [facility] Comment on above: Performed By: #### L 500.2500, L501.6900 ####[facility] [address] [place], [address] Chloride [Moles/Vol] 105 mmol/L Normal 98-107 [facility] Comment on above: Performed By: #### L 500.2500, L501.6900 ####[facility] [address] [place], [address] CO2 [Moles/Vol] 20.0 mmol/L Low 21.0-32.0 [facility] Comment on above: Performed By: #### L 500.2500, L501.6900 ####[facility] [address] [place], [address] Creatinine [Mass/Vol] 0.77 mg/dL Normal 0.55-1.02 [facility] Comment on above: Result Comment: The validity of the calculated GFR GFRAA in patients over70 years has not been determined. Clinical correlation isessential. Performed By: #### L 500.2500, L501.6900 ####[facility] [address] [place], [address] ECRCL 49.33 ml/min Normal [facility] Comment on above: Performed By: #### L 500.2500, L501.6900 ####[facility] [address] [place], [address] EST GFR - AA 93 mL/min Normal >60 [facility] Comment on above: Result Comment: Afri can Bruneian GFR Calc Performed By: #### L 500.2500, L501.6900 ####[facility] [address] [place], [address] GAP 11 Normal 5-15 [facility] Comment on above: Performed By: #### L 500.2500, L501.6900 ####[facility] [address] [place], [address] GFR/1.73 sq M.predicted among non-blacks MDRD (S/P/Bld) [Vol rate/Area] 76 mL/min/{1.73_m2} Normal >60 [facility] Comment on above: Result Comment: Non- GFR Calc Performed By: #### L 500.2500, L501.6900 ####[facility] [address] [place], [address] Glucose [Mass/Vol] 247 mg/dL High 74-106 [facility] Comment on above: Result Comment: Gluc ose result greater than or equal to 200 mg/dLsuggests DIABETES MELLITUS per A.D.A. criteria. Performed By: #### L 500.2500, L501.6900 ####[facility] [address] [place], [address] Potassium [Moles/Vol] 4.1 mmol/L Normal 3.5-5.1 [facility] Comment on above: Performed By: #### L 500.2500, L501.6900 ####[facility] [address] [place], [address] Sodium [Moles/Vol] 136 mmol/L Normal 136-145 [facility] Comment on above: Performed By: #### L 500.2500, L501.6900 ####[facility] [address] [place], [address] Urea nitrogen [Mass/Vol] 23 mg/dL High 7-18 [facility] Comment on above: Performed By: #### L 500.2500, L501.6900 ####[facility] [address] [place], [address] BUN Normal -18 [facility] Comment on above: Result Comment: Canc elled via OM: Order cancelled - Patient discharged Performed By: #### L 500.2500, L100.0100 ####[facility] [address] [place], [address] BUN/CRE Normal 10-20 [facility] Comment on above: Result Comment: Canc elled via OM: Order cancelled - Patient discharged Performed By: #### L 500.2500, L100.0100 ####[facility] [address] [place], [address] CA,Total Normal 8.5-10.1 [facility] Comment on above: Result Comment: Canc elled via OM: Order cancelled - Patient discharged Performed By: #### L 500.2500, L100.0100 ####[facility] [address] [place], [address] CL Normal 98-107 [facility] Comment on above: Result Comment: Canc elled via OM: Order cancelled - Patient discharged Performed By: #### L 500.2500, L100.0100 ####[facility] [address] [place], [address] CO2 Normal 21.0-32.0 [facility] Comment on above: Result Comment: Canc elled via OM: Order cancelled - Patient discharged Performed By: #### L 500.2500, L100.0100 ####[facility] [address] [place], [address] CREAT,SERUM Normal 0.55-1.02 [facility] Comment on above: Result Comment: Canc elled via OM: Order cancelled - Patient discharged Performed By: #### L 500.2500, L100.0100 ####[facility] [address] [place], [address] EST GFR Normal >60 [facility] Comment on above: Result Comment: Canc elled via OM: Order cancelled - Patient discharged Performed By: #### L 500.2500, L100.0100 ####[facility] [address] [place], [address] EST GFR - AA Normal >60 [facility] Comment on above: Result Comment: Canc elled via OM: Order cancelled - Patient discharged Performed By: #### L 500.2500, L100.0100 ####[facility] [address] [place], [address] GAP Normal 5-15 [facility] Comment on above: Result Comment: Canc elled via OM: Order cancelled - Patient discharged Performed By: #### L 500.2500, L100.0100 ####[facility] [address] [place], [address] GLU Normal 74-106 [facility] Comment on above: Result Comment: Canc elled via OM: Order cancelled - Patient discharged Performed By: #### L 500.2500, L100.0100 ####[facility] [address] [place], [address] Potassium Normal 3.5-5.1 [facility] Comment on above: Result Comment: Canc elled via OM: Order cancelled - Patient discharged Performed By: #### L 500.2500, L100.0100 ####[facility] [address] [place], [address] Basic Metabolic Profile (BMP) Normal 136-145 [facility] Comment on above: Result Comment: Canc elled via OM: Order cancelled - Patient discharged Performed By: #### L 500.2500, L100.0100 ####[facility] [address] [place], [address] Bedside Glucoseon 08-29-2024 FINGERSTICK GLU 300 mg/dL High 74-106 [facility] Comment on above: Result Comment: OLGA GEMENT OF PATIENT CARE PER NURSING PROTOCOL Performed By: #### L 501.080 ####[facility] [address] [place], [address] FINGERSTICK GLU 228 mg/dL High 74-106 [facility] Comment on above: Result Comment: OLGA GEMENT OF PATIENT CARE PER NURSING PROTOCOL Performed By: #### L 501.080 ####[facility] [address] [place], [address] FINGERSTICK GLU 224 mg/dL High 74-106 [facility] Comment on above: Result Comment: OLGA GEMENT OF PATIENT CARE PER NURSING PROTOCOL Performed By: #### L 501.080 ####[facility] [address] [place], [address] CBC W/Diff, Automatedon - Absolute Neut Normal 2.0-7.7 [facility] Comment on above: Result Comment: Canc elled via OM: Order cancelled - Patient discharged Performed By: #### L 500.2500, L100.0100 ####[facility] [address] [place], [address] HCT Normal 37-47 [facility] Comment on above: Result Comment: Canc elled via OM: Order cancelled - Patient discharged Performed By: #### L 500.2500, L100.0100 ####[facility] [address] [place], [address] HGB Normal 12.0-15.0 [facility] Comment on above: Result Comment: Canc elled via OM: Order cancelled - Patient discharged Performed By: #### L 500.2500, L100.0100 ####[facility] [address] [place], [address] MCH Normal 27.0-32.0 [facility] Comment on above: Result Comment: Canc elled via OM: Order cancelled - Patient discharged Performed By: #### L 500.2500, L100.0100 ####[facility] [address] [place], [address] MCHC Normal 32-36 [facility] Comment on above: Result Comment: Canc elled via OM: Order cancelled - Patient discharged Performed By: #### L 500.2500, L100.0100 ####[facility] [address] [place], [address] MCV Normal 81-99 [facility] Comment on above: Result Comment: Canc elled via OM: Order cancelled - Patient discharged Performed By: #### L 500.2500, L100.0100 ####[facility] [address] [place], [address] NEUT% Normal 47-70 [facility] Comment on above: Result Comment: Canc elled via OM: Order cancelled - Patient discharged Performed By: #### L 500.2500, L100.0100 ####[facility] [address] [place], [address] PLT Normal 150-450 [facility] Comment on above: Result Comment: Canc elled via OM: Order cancelled - Patient discharged Performed By: #### L 500.2500, L100.0100 ####[facility] [address] [place], [address] RBC Normal 4.2-5.4 [facility] Comment on above: Result Comment: Canc elled via OM: Order cancelled - Patient discharged Performed By: #### L 500.2500, L100.0100 ####[facility] [address] [place], [address] RDW CV Normal 11.6-14.6 [facility] Comment on above: Result Comment: Canc elled via OM: Order cancelled - Patient discharged Performed By: #### L 500.2500, L100.0100 ####[facility] [address] [place], [address] RDW SD Normal 35.1-43.9 [facility] Comment on above: Result Comment: Canc elled via OM: Order cancelled - Patient discharged Performed By: #### L 500.2500, L100.0100 ####[facility] [address] [place], [address] WBC Normal 4.4-11.0 [facility] Comment on above: Result Comment: Canc elled via OM: Order cancelled - Patient discharged Performed By: #### L 500.2500, L100.0100 ####[facility] [address] [place], [address] Urinalysis, Completeon 08-29 BACTERIA RARE Normal None Seen [facility] Comment on above: Order Comment: BLADD ER TAP Performed By: #### L 400.0001 ####[facility] [address] [place], [address] EPI,SQUAMOUS 0-5 SEEN Normal 5-10 [facility] Comment on above: Order Comment: BLADD ER TAP Performed By: #### L 400.0001 ####[facility] [address] [place], [address] RBC 0-5 SEEN Normal 0-5 [facility] Comment on above: Order Comment: BLADD ER TAP Performed By: #### L 400.0001 ####[facility] [address] [place], [address] WBC 5-10 SEEN Normal 0-5 [facility] Comment on above: Order Comment: BLADD ER TAP Performed By: #### L 400.0001 ####[facility] [address] [place], [address] YEAST 2+ /hpf Normal None Seen [facility] Comment on above: Order Comment: BLADD ER TAP Performed By: #### L 400.0001 ####[facility] [address] [place], [address] Mucus Ql (Urine sed) 0 SEEN Normal [facility] Comment on above: Order Comment: BLADD ER TAP Performed By: #### L 400.0001 ####[facility] [address] [place], [address] Basic Metabolic Profile (BMP )on 08-28-2024 BUN/CRE 20.4 RATIO High 10-20 [facility] Comment on above: Performed By: #### L 100.0100, L500.2500, L501.9520 ####[facility] [address] [place], [address] CA,Total 9.2 mg/dL Normal 8.5-10.1 [facility] Comment on above: Performed By: #### L 100.0100, L500.2500, L501.9520 ####[facility] [address] [place], [address] Chloride [Moles/Vol] 107 mmol/L Normal 98-107 [facility] Comment on above: Performed By: #### L 100.0100, L500.2500, L501.9520 ####[facility] [address] [place], [address] CO2 [Moles/Vol] 20.0 mmol/L Low 21.0-32.0 [facility] Comment on above: Performed By: #### L 100.0100, L500.2500, L501.9520 ####[facility] [address] [place], [address] Creatinine [Mass/Vol] 0.64 mg/dL Normal 0.55-1.02 [facility] Comment on above: Result Comment: The validity of the calculated GFR GFRAA in patients over70 years has not been determined. Clinical correlation isessential. Performed By: #### L 100.0100, L500.2500, L501.9520 ####[facility] [address] [place], [address] ECRCL 49.35 ml/min Normal [facility] Comment on above: Performed By: #### L 100.0100, L500.2500, L501.9520 ####[facility] [address] [place], [address] EST GFR - AA 115 mL/min Normal >60 [facility] Comment on above: Result Comment: Afri can [place] GFR Calc Performed By: #### L 100.0100, L500.2500, L501.9520 ####[facility] [address] [place], [address] GAP 9 Normal 5-15 [facility] Comment on above: Performed By: #### L 100.0100, L500.2500, L501.9520 ####[facility] [address] [place], [address] GFR/1.73 sq M.predicted among non-blacks MDRD (S/P/Bld) [Vol rate/Area] 95 mL/min/{1.73_m2} Normal >60 [facility] Comment on above: Result Comment: Non- GFR Calc Performed By: #### L 100.0100, L500.2500, L501.9520 ####[facility] [address] [place], [address] Glucose [Mass/Vol] 209 mg/dL High 74-106 [facility] Comment on above: Result Comment: Gluc ose result greater than or equal to 200 mg/dLsuggests DIABETES MELLITUS per A.D.A. criteria. Performed By: #### L 100.0100, L500.2500, L501.9520 ####[facility] [address] [place], [address] Potassium [Moles/Vol] 3.8 mmol/L Normal 3.5-5.1 [facility] Comment on above: Performed By: #### L 100.0100, L500.2500, L501.9520 ####[facility] [address] [place], [address] Sodium [Moles/Vol] 136 mmol/L Normal 136-145 [facility] Comment on above: Performed By: #### L 100.0100, L500.2500, L501.9520 ####[facility] [address] [place], [address] Urea nitrogen [Mass/Vol] 13 mg/dL Normal 7-18 [facility] Comment on above: Performed By: #### L 100.0100, L500.2500, L501.9520 ####[facility] [address] [place], [address] Bedside Glucoseon 08-28-2024 FINGERSTICK GLU 229 mg/dL High 74-106 [facility] Comment on above: Result Comment: OLGA GOMEZ OF PATIENT CARE PER NURSING PROTOCOL Performed By: #### L 501.080 ####[facility] [address] [place], [address] FINGERSTICK GLU 241 mg/dL High 74-106 [facility] Comment on above: Result Comment: OLGA GEMENT OF PATIENT CARE PER NURSING PROTOCOL Performed By: #### L 501.080 ####[facility] [address] [place], [address] FINGERSTICK GLU 216 mg/dL High 74-106 [facility] Comment on above: Result Comment: OLGA GEMENT OF PATIENT CARE PER NURSING PROTOCOL Performed By: #### L 501.080 ####[facility] [address] [place], [address] CBC W/Diff, Automatedon 08-13 Absolute Lymph 1.53 X10 3/uL Normal 0.83-4.51 [facility] Comment on above: Performed By: #### L 100.0100, L500.2500, L501.9520 ####[facility] [address] [place], [address] Absolute Neut 6.4 X10 3/uL Normal 2.0-7.7 [facility] Comment on above: Performed By: #### L 100.0100, L500.2500, L501.9520 ####[facility] [address] [place], [address] Basophils/100 WBC (Bld) 0.5 % Normal 0-1 [facility] Comment on above: Performed By: #### L 100.0100, L500.2500, L501.9520 ####[facility] [address] [place], [address] Eosinophils/100 WBC (Bld) 3.1 % Normal 0-5 [facility] Comment on above: Performed By: #### L 100.0100, L500.2500, L501.9520 ####[facility] [address] [place], [address] Erythrocyte distribution width (RBC) [Ratio] 13.3 % Normal 11.6-14.6 [facility] Comment on above: Performed By: #### L 100.0100, L500.2500, L501.9520 ####[facility] [address] [place], [address] Hematocrit (Bld) [Volume fraction] 36.4 % Low 37-47 [facility] Comment on above: Performed By: #### L 100.0100, L500.2500, L501.9520 ####[facility] [address] [place], [address] Hemoglobin (Bld) [Mass/Vol] 12.4 g/dL Normal 12.0-15.0 [facility] Comment on above: Performed By: #### L 100.0100, L500.2500, L501.9520 ####[facility] [address] [place], [address] IG% 0.300 Normal 0.0-0.9 [facility] Comment on above: Result Comment: IG% - Immature Granulocytes (promyelocytes, myelocytes andmetamyelocytes) > 1% indicates that a LEFT SHIFT is Present. Performed By: #### L 100.0100, L500.2500, L501.9520 ####[facility] [address] [place], [address] Lymphocytes/100 WBC (Bld) 16.2 % Low 19-41 [facility] Comment on above: Performed By: #### L 100.0100, L500.2500, L501.9520 ####[facility] [address] [place], [address] MCH (RBC) [Entitic mass] 32.0 pg Normal 27.0-32.0 [facility] Comment on above: Performed By: #### L 100.0100, L500.2500, L501.9520 ####[facility] [address] [place], [address] MCHC (RBC) [Mass/Vol] 34.1 g/dL Normal 32-36 [facility] Comment on above: Performed By: #### L 100.0100, L500.2500, L501.9520 ####[facility] [address] [place], [address] MCV (RBC) [Entitic vol] 93.8 fL Normal 81-99 [facility] Comment on above: Performed By: #### L 100.0100, L500.2500, L501.9520 ####[facility] [address] [place], [address] Monocytes/100 WBC (Bld) 11.6 % High 0-10 [facility] Comment on above: Performed By: #### L 100.0100, L500.2500, L501.9520 ####[facility] [address] [place], [address] Neutrophils/100 WBC (Bld) 68.3 % Normal 47-70 [facility] Comment on above: Performed By: #### L 100.0100, L500.2500, L501.9520 ####[facility] [address] [place], [address] Nucleated RBC (Bld) [#/Vol] 0 10*3/uL Normal 0-5 [facility] Comment on above: Performed By: #### L 100.0100, L500.2500, L501.9520 ####[facility] [address] [place], [address] Platelet mean volume (Bld) [Entitic vol] 9.7 fL Normal 6.2-12.0 [facility] Comment on above: Performed By: #### L 100.0100, L500.2500, L501.9520 ####[facility] [address] [place], [address] Platelets (Bld) [#/Vol] 283 10*3/uL Normal 150-450 [facility] Comment on above: Performed By: #### L 100.0100, L500.2500, L501.9520 ####[facility] [address] [place], [address] RBC (Bld) [#/Vol] 3.88 10*6/uL Low 4.2-5.4 [facility] Comment on above: Performed By: #### L 100.0100, L500.2500, L501.9520 ####[facility] [address] [place], [address] RDW SD 45.1 fl High 35.1-43.9 [facility] Comment on above: Performed By: #### L 100.0100, L500.2500, L501.9520 ####[facility] [address] [place], [address] WBC (Bld) [#/Vol] 9.4 10*3/uL Normal 4.4-11.0 [facility] Comment on above: Performed By: #### L 100.0100, L500.2500, L501.9520 ####[facility] [address] [place], [address] EGD Reporton 08-28-2024 EGD Report Normal [facility] Hemoglobin A1con 08-28-2024 HbA1c (Bld) [Mass fraction] 7.2 % High 3.8-5.6 [facility] Comment on above: Result Comment: Norm al < 5.7 % Prediabetic 5.7 - 6.4 % Diabetic >or= 6.5 % Please note range changes. Performed By: #### L 501.9985 ####[facility] [address] [place], [address] MR/CON.PCM.NEon 08-28-2024 MR/CON.PCM.NE Normal [facility] MR/PN.GIon 08-28-2024 MR/PN.GI Normal [facility] MR/POSTOP.ANEon 08-28-2024 MR/POSTOP.ANE Normal [facility] MR/RGJDCCXZ1nx 08-28-2024 MR/POSTOPAN2 Normal [facility] Thyroid Stim Hormone (TSH)on 08-28-2024 TSH 10.600 uIU/mL High 0.358-3.74 0 [facility] Comment on above: Performed By: #### L 100.0100, L500.2500, L501.9520 ####[facility] [address] [place], [address] Urine Cultureon 08-28-2024 URC Normal [facility] Comment on above: Performed By: #### M 100.2200 ####[facility] [address] [place], [address] Bedside Glucoseon 08-27-2024 FINGERSTICK GLU 195 mg/dL High 74-106 [facility] Comment on above: Result Comment: OLGA GEMENT OF PATIENT CARE PER NURSING PROTOCOL Performed By: #### L 501.080 ####[facility] [address] [place], [address] FINGERSTICK GLU 173 mg/dL High 74-106 [facility] Comment on above: Result Comment: OLGA GEMENT OF PATIENT CARE PER NURSING PROTOCOL Performed By: #### L 501.080 ####[facility] [address] [place], [address] FINGERSTICK GLU 249 mg/dL High 74-106 [facility] Comment on above: Result Comment: OLGA GEMENT OF PATIENT CARE PER NURSING PROTOCOL Performed By: #### L 501.080 ####[facility] [address] [place], [address] FINGERSTICK GLU 188 mg/dL High 74-106 [facility] Comment on above: Result Comment: OLGA GEMENT OF PATIENT CARE PER NURSING PROTOCOL Performed By: #### L 501.080 ####[facility] [address] [place], [address] MR/CON.PCM.GIon 08-27-2024 MR/CON.PCM.GI Normal [facility] Modified Barium Swallow Stud yon 08-27-2024 Modified Barium Swallow Study Normal [facility] Bedside Glucoseon 08-26-2024 FINGERSTICK GLU 162 mg/dL High 74-106 [facility] Comment on above: Result Comment: OLGA GEMENT OF PATIENT CARE PER NURSING PROTOCOL Performed By: #### L 501.080 ####[facility] [address] [place], [address] FINGERSTICK GLU 167 mg/dL High 74-106 [facility] Comment on above: Result Comment: OLGA GEMENT OF PATIENT CARE PER NURSING PROTOCOL Performed By: #### L 501.080 ####[facility] [address] [place], [address] FINGERSTICK GLU 214 mg/dL High 74-106 [facility] Comment on above: Result Comment: OLGA GEMENT OF PATIENT CARE PER NURSING PROTOCOL Performed By: #### L 501.080 ####[facility] [address] [place], [address] FINGERSTICK GLU 152 mg/dL High 74-106 [facility] Comment on above: Result Comment: OLGA GEMENT OF PATIENT CARE PER NURSING PROTOCOL Performed By: #### L 501.080 ####[facility] [address] [place], [address] CBC W/Diff, Automatedon 08-13 Absolute Lymph 1.33 X10 3/uL Normal 0.83-4.51 [facility] Comment on above: Performed By: #### L 500.4100, L501.2300, L100.0100, L501.5200, L500.4050 ####[facility] [address] [place], [address] Absolute Neut 7.2 X10 3/uL Normal 2.0-7.7 [facility] Comment on above: Performed By: #### L 500.4100, L501.2300, L100.0100, L501.5200, L500.4050 ####[facility] [address] [place], [address] Basophils/100 WBC (Bld) 0.3 % Normal 0-1 [facility] Comment on above: Performed By: #### L 500.4100, L501.2300, L100.0100, L501.5200, L500.4050 ####[facility] [address] [place], [address] Eosinophils/100 WBC (Bld) 3.2 % Normal 0-5 [facility] Comment on above: Performed By: #### L 500.4100, L501.2300, L100.0100, L501.5200, L500.4050 ####[facility] [address] [place], [address] Erythrocyte distribution width (RBC) [Ratio] 13.1 % Normal 11.6-14.6 [facility] Comment on above: Performed By: #### L 500.4100, L501.2300, L100.0100, L501.5200, L500.4050 ####[facility] [address] [place], [address] Hematocrit (Bld) [Volume fraction] 31.7 % Low 37-47 [facility] Comment on above: Performed By: #### L 500.4100, L501.2300, L100.0100, L501.5200, L500.4050 ####[facility] [address] [place], [address] Hemoglobin (Bld) [Mass/Vol] 10.5 g/dL Low 12.0-15.0 [facility] Comment on above: Performed By: #### L 500.4100, L501.2300, L100.0100, L501.5200, L500.4050 ####[facility] [address] [place], [address] IG% 0.400 Normal 0.0-0.9 [facility] Comment on above: Result Comment: IG% - Immature Granulocytes (promyelocytes, myelocytes andmetamyelocytes) > 1% indicates that a LEFT SHIFT is Present. Performed By: #### L 500.4100, L501.2300, L100.0100, L501.5200, L500.4050 ####[facility] [address] [place], [address] Lymphocytes/100 WBC (Bld) 13.8 % Low 19-41 [facility] Comment on above: Performed By: #### L 500.4100, L501.2300, L100.0100, L501.5200, L500.4050 ####[facility] [address] [place], [address] MCH (RBC) [Entitic mass] 31.3 pg Normal 27.0-32.0 [facility] Comment on above: Performed By: #### L 500.4100, L501.2300, L100.0100, L501.5200, L500.4050 ####[facility] [address] [place], [address] MCHC (RBC) [Mass/Vol] 33.1 g/dL Normal 32-36 [facility] Comment on above: Performed By: #### L 500.4100, L501.2300, L100.0100, L501.5200, L500.4050 ####[facility] [address] [place], [address] MCV (RBC) [Entitic vol] 94.6 fL Normal 81-99 [facility] Comment on above: Performed By: #### L 500.4100, L501.2300, L100.0100, L501.5200, L500.4050 ####[facility] [address] [place], [address] Monocytes/100 WBC (Bld) 8.4 % Normal 0-10 [facility] Comment on above: Performed By: #### L 500.4100, L501.2300, L100.0100, L501.5200, L500.4050 ####[facility] [address] [place], [address] Neutrophils/100 WBC (Bld) 73.9 % High 47-70 [facility] Comment on above: Performed By: #### L 500.4100, L501.2300, L100.0100, L501.5200, L500.4050 ####[facility] [address] [place], [address] Nucleated RBC (Bld) [#/Vol] 0 10*3/uL Normal 0-5 [facility] Comment on above: Performed By: #### L 500.4100, L501.2300, L100.0100, L501.5200, L500.4050 ####[facility] [address] [place], [address] Platelet mean volume (Bld) [Entitic vol] 10.0 fL Normal 6.2-12.0 [facility] Comment on above: Performed By: #### L 500.4100, L501.2300, L100.0100, L501.5200, L500.4050 ####[facility] [address] [place], [address] Platelets (Bld) [#/Vol] 276 10*3/uL Normal 150-450 [facility] Comment on above: Performed By: #### L 500.4100, L501.2300, L100.0100, L501.5200, L500.4050 ####[facility] [address] [place], [address] RBC (Bld) [#/Vol] 3.35 10*6/uL Low 4.2-5.4 [facility] Comment on above: Performed By: #### L 500.4100, L501.2300, L100.0100, L501.5200, L500.4050 ####[facility] [address] [place], [address] RDW SD 44.6 fl High 35.1-43.9 [facility] Comment on above: Performed By: #### L 500.4100, L501.2300, L100.0100, L501.5200, L500.4050 ####[facility] [address] [place], [address] WBC (Bld) [#/Vol] 9.7 10*3/uL Normal 4.4-11.0 [facility] Comment on above: Performed By: #### L 500.4100, L501.2300, L100.0100, L501.5200, L500.4050 ####[facility] [address] [place], [address] Comprehensive Metabolic Prof ilon 08-26-2024 Albumin [Mass/Vol] 3.2 g/dL Normal 3.2-5.0 [facility] Comment on above: Order Comment: Comme nts: NPO at [place] prior to lipid panel Performed By: #### L 500.4100, L501.2300, L100.0100, L501.5200, L500.4050 ####[facility] [address] [place], [address] Albumin/Globulin [Mass ratio] 0.9 {ratio} Normal 0.9-2.4 [facility] Comment on above: Order Comment: Comme nts: NPO at [place] prior to lipid panel Performed By: #### L 500.4100, L501.2300, L100.0100, L501.5200, L500.4050 ####[facility] [address] [place], [address] ALK P 76 U/L Normal 45-117 [facility] Comment on above: Order Comment: Comme nts: NPO at [place] prior to lipid panel Performed By: #### L 500.4100, L501.2300, L100.0100, L501.5200, L500.4050 ####[facility] [address] [place], [address] ALT [Catalytic activity/Vol] 22 U/L Normal 13-56 [facility] Comment on above: Order Comment: Comme nts: NPO at [place] prior to lipid panel Performed By: #### L 500.4100, L501.2300, L100.0100, L501.5200, L500.4050 ####[facility] [address] [place], [address] AST [Catalytic activity/Vol] 20 U/L Normal 15-37 [facility] Comment on above: Order Comment: Comme nts: NPO at [place] prior to lipid panel Performed By: #### L 500.4100, L501.2300, L100.0100, L501.5200, L500.4050 ####[facility] [address] [place], [address] Bilirubin [Mass/Vol] 0.50 mg/dL Normal 0.20-1.00 [facility] Comment on above: Order Comment: Comme nts: NPO at [place] prior to lipid panel Result Comment: For patients on eltrombopag therapy, use of Dimension Loyal TBIL is not recommended. Performed By: #### L 500.4100, L501.2300, L100.0100, L501.5200, L500.4050 ####[facility] [address] [place], [address] BUN/CRE 25.9 RATIO High 10-20 [facility] Comment on above: Order Comment: Comme nts: NPO at [place] prior to lipid panel Performed By: #### L 500.4100, L501.2300, L100.0100, L501.5200, L500.4050 ####[facility] [address] [place], [address] CA,Total 8.8 mg/dL Normal 8.5-10.1 [facility] Comment on above: Order Comment: Comme nts: NPO at [place] prior to lipid panel Performed By: #### L 500.4100, L501.2300, L100.0100, L501.5200, L500.4050 ####[facility] [address] [place], [address] Chloride [Moles/Vol] 108 mmol/L High 98-107 [facility] Comment on above: Order Comment: Comme nts: NPO at [place] prior to lipid panel Performed By: #### L 500.4100, L501.2300, L100.0100, L501.5200, L500.4050 ####[facility] [address] [place], [address] CO2 [Moles/Vol] 23.0 mmol/L Normal 21.0-32.0 [facility] Comment on above: Order Comment: Comme nts: NPO at [place] prior to lipid panel Performed By: #### L 500.4100, L501.2300, L100.0100, L501.5200, L500.4050 ####[facility] [address] [place], [address] Creatinine [Mass/Vol] 0.81 mg/dL Normal 0.55-1.02 [facility] Comment on above: Order Comment: Comme nts: NPO at [place] prior to lipid panel Result Comment: The validity of the calculated GFR GFRAA in patients over70 years has not been determined. Clinical correlation isessential. Performed By: #### L 500.4100, L501.2300, L100.0100, L501.5200, L500.4050 ####[facility] [address] [place], [address] ECRCL 48.74 ml/min Normal [facility] Comment on above: Order Comment: Comme nts: NPO at [place] prior to lipid panel Performed By: #### L 500.4100, L501.2300, L100.0100, L501.5200, L500.4050 ####[facility] [address] [place], [address] EST GFR - AA 87 mL/min Normal >60 [facility] Comment on above: Order Comment: Comme nts: NPO at [place] prior to lipid panel Result Comment: Afri can Bruneian GFR Calc Performed By: #### L 500.4100, L501.2300, L100.0100, L501.5200, L500.4050 ####[facility] [address] [place], [address] GAP 7 Normal 5-15 [facility] Comment on above: Order Comment: Comme nts: NPO at [place] prior to lipid panel Performed By: #### L 500.4100, L501.2300, L100.0100, L501.5200, L500.4050 ####[facility] [address] [place], [address] GFR/1.73 sq M.predicted among non-blacks MDRD (S/P/Bld) [Vol rate/Area] 72 mL/min/{1.73_m2} Normal >60 [facility] Comment on above: Order Comment: Comme nts: NPO at [place] prior to lipid panel Result Comment: Non- GFR Calc Performed By: #### L 500.4100, L501.2300, L100.0100, L501.5200, L500.4050 ####[facility] [address] [place], [address] Globulin (S) [Mass/Vol] 3.4 g/dL Normal 2.2-4.2 [facility] Comment on above: Order Comment: Comme nts: NPO at [place] prior to lipid panel Performed By: #### L 500.4100, L501.2300, L100.0100, L501.5200, L500.4050 ####[facility] [address] [place], [address] Glucose [Mass/Vol] 149 mg/dL High 74-106 [facility] Comment on above: Order Comment: Comme nts: NPO at [place] prior to lipid panel Result Comment: Fast ing Glucose result greater than or equal to 126 mg/dLsuggests DIABETES MELLITUS per A.D.A. criteria. Performed By: #### L 500.4100, L501.2300, L100.0100, L501.5200, L500.4050 ####[facility] [address] [place], [address] Potassium [Moles/Vol] 3.9 mmol/L Normal 3.5-5.1 [facility] Comment on above: Order Comment: Comme nts: NPO at [place] prior to lipid panel Performed By: #### L 500.4100, L501.2300, L100.0100, L501.5200, L500.4050 ####[facility] [address] [place], [address] Sodium [Moles/Vol] 137 mmol/L Normal 136-145 [facility] Comment on above: Order Comment: Comme nts: NPO at [place] prior to lipid panel Performed By: #### L 500.4100, L501.2300, L100.0100, L501.5200, L500.4050 ####[facility] [address] [place], [address] T PROT 6.6 g/dL Normal 6.4-8.2 [facility] Comment on above: Order Comment: Comme nts: NPO at [place] prior to lipid panel Performed By: #### L 500.4100, L501.2300, L100.0100, L501.5200, L500.4050 ####[facility] [address] [place], [address] Urea nitrogen [Mass/Vol] 21 mg/dL High 7-18 [facility] Comment on above: Order Comment: Comme nts: NPO at [place] prior to lipid panel Performed By: #### L 500.4100, L501.2300, L100.0100, L501.5200, L500.4050 ####[facility] [address] [place], [address] Echo, Limited Studyon 2024 Echo, Limited Study Normal [facility] Lipid Profileon 08-26-2024 Cholesterol [Mass/Vol] 142 mg/dL Normal 200 [facility] Comment on above: Order Comment: Comme nts: NPO at [place] prior to lipid panel Result Comment: <200 mg/dL Desirable 200-240 mg/dL Borderline >240 mg/dL High Risk Performed By: #### L 500.4100, L501.2300, L100.0100, L501.5200, L500.4050 ####[facility] [address] [place], [address] Cholesterol in HDL [Mass/Vol] 53 mg/dL Normal [facility] Comment on above: Order Comment: Comme nts: NPO at [place] prior to lipid panel Result Comment: The drugs N-Acetylcysteine and Metamizole may falselydepress this assay. Reference Range HDL <40 mg/dL Low HDL Cholesterol HDL >or= 60 mg/dL High HDL Cholesterol Performed By: #### L 500.4100, L501.2300, L100.0100, L501.5200, L500.4050 ####[facility] [address] [place], [address] Cholesterol in LDL [Mass/Vol] 51 mg/dL Normal 0-130 [facility] Comment on above: Order Comment: Comme nts: NPO at [place] prior to lipid panel Performed By: #### L 500.4100, L501.2300, L100.0100, L501.5200, L500.4050 ####[facility] [address] [place], [address] Cholesterol in VLDL [Mass/Vol] 38 mg/dL Normal 5-40 [facility] Comment on above: Order Comment: Comme nts: NPO at [place] prior to lipid panel Performed By: #### L 500.4100, L501.2300, L100.0100, L501.5200, L500.4050 ####[facility] [address] [place], [address] Triglyceride [Mass/Vol] 192 mg/dL Normal [facility] Comment on above: Order Comment: Comme nts: NPO at [place] prior to lipid panel Result Comment: The drugs N-Acetylcysteine and Metamizole may falselydepress this assay.Serum Triglycerides Reference Interval Normal <150 mg/dL Borderline high 150 - 199 mg/dL High 200 - 499 mg/dL Very High > or = 500 mg/dL Performed By: #### L 500.4100, L501.2300, L100.0100, L501.5200, L500.4050 ####[facility] [address] [place], [address] MR/CON.PCM.NEon 08-26-2024 MR/CON.PCM.NE Normal [facility] Magnesiumon 08-26-2024 Magnesium [Mass/Vol] 1.6 mg/dL Normal 1.6-2.6 [facility] Comment on above: Order Comment: Comme nts: NPO at [place] prior to lipid panel Performed By: #### L 500.4100, L501.2300, L100.0100, L501.5200, L500.4050 ####[facility] [address] [place], [address] Phosphoruson 08-26-2024 Phosphate [Mass/Vol] 3.4 mg/dL Normal 2.5-4.9 [facility] Comment on above: Order Comment: Comme nts: NPO at [place] prior to lipid panel Performed By: #### L 500.4100, L501.2300, L100.0100, L501.5200, L500.4050 ####[facility] [address] [place], [address] 12 Lead EKGon 08-25-2024 12 Lead EKG Normal [facility] Basic Metabolic Profile (BMP )on 08-25-2024 BUN/CRE 26.7 RATIO High 10-20 [facility] Comment on above: Order Comment: 'TROP ' Serial specimen #1, #2 or #3: 1 Performed By: #### L 501.4020, L100.0100, L500.2500, L300.3900, L300.4310 ####[facility] [address] [place], [address] CA,Total 9.3 mg/dL Normal 8.5-10.1 [facility] Comment on above: Order Comment: 'TROP ' Serial specimen #1, #2 or #3: 1 Performed By: #### L 501.4020, L100.0100, L500.2500, L300.3900, L300.4310 ####[facility] [address] [place], [address] Chloride [Moles/Vol] 102 mmol/L Normal 98-107 [facility] Comment on above: Order Comment: 'TROP ' Serial specimen #1, #2 or #3: 1 Performed By: #### L 501.4020, L100.0100, L500.2500, L300.3900, L300.4310 ####[facility] [address] [place], [address] CO2 [Moles/Vol] 25.0 mmol/L Normal 21.0-32.0 [facility] Comment on above: Order Comment: 'TROP ' Serial specimen #1, #2 or #3: 1 Performed By: #### L 501.4020, L100.0100, L500.2500, L300.3900, L300.4310 ####[facility] [address] [place], [address] Creatinine [Mass/Vol] 1.16 mg/dL High 0.55-1.02 [facility] Comment on above: Order Comment: 'TROP ' Serial specimen #1, #2 or #3: 1 Result Comment: The validity of the calculated GFR GFRAA in patients over70 years has not been determined. Clinical correlation isessential. Performed By: #### L 501.4020, L100.0100, L500.2500, L300.3900, L300.4310 ####[facility] [address] [place], [place], [address] ECRCL 35.92 ml/min Normal [facility] Comment on above: Order Comment: 'TROP ' Serial specimen #1, #2 or #3: 1 Performed By: #### L 501.4020, L100.0100, L500.2500, L300.3900, L300.4310 ####[facility] [address] [place], [address] EST GFR - AA 58 mL/min Low >60 [facility] Comment on above: Order Comment: 'TROP ' Serial specimen #1, #2 or #3: 1 Result Comment: Afri can Bruneian GFR Calc Performed By: #### L 501.4020, L100.0100, L500.2500, L300.3900, L300.4310 ####[facility] [address] [place], [address] GAP 8 Normal 5-15 [facility] Comment on above: Order Comment: 'TROP ' Serial specimen #1, #2 or #3: 1 Performed By: #### L 501.4020, L100.0100, L500.2500, L300.3900, L300.4310 ####[facility] [address] [place], [address] GFR/1.73 sq M.predicted among non-blacks MDRD (S/P/Bld) [Vol rate/Area] 48 mL/min/{1.73_m2} Low >60 [facility] Comment on above: Order Comment: 'TROP ' Serial specimen #1, #2 or #3: 1 Result Comment: Non- GFR Calc Performed By: #### L 501.4020, L100.0100, L500.2500, L300.3900, L300.4310 ####[facility] [address] [place], [address] Glucose [Mass/Vol] 350 mg/dL High 74-106 [facility] Comment on above: Order Comment: 'TROP ' Serial specimen #1, #2 or #3: 1 Result Comment: Gluc ose result greater than or equal to 200 mg/dLsuggests DIABETES MELLITUS per A.D.A. criteria. Performed By: #### L 501.4020, L100.0100, L500.2500, L300.3900, L300.4310 ####[facility] [address] [place], [address] Potassium [Moles/Vol] 4.7 mmol/L Normal 3.5-5.1 [facility] Comment on above: Order Comment: 'TROP ' Serial specimen #1, #2 or #3: 1 Performed By: #### L 501.4020, L100.0100, L500.2500, L300.3900, L300.4310 ####[facility] [address] [place], [address] Sodium [Moles/Vol] 135 mmol/L Low 136-145 [facility] Comment on above: Order Comment: 'TROP ' Serial specimen #1, #2 or #3: 1 Performed By: #### L 501.4020, L100.0100, L500.2500, L300.3900, L300.4310 ####[facility] [address] [place], [address] Urea nitrogen [Mass/Vol] 31 mg/dL High 7-18 [facility] Comment on above: Order Comment: 'TROP ' Serial specimen #1, #2 or #3: 1 Performed By: #### L 501.4020, L100.0100, L500.2500, L300.3900, L300.4310 ####[facility] [address] [place], [address] Bedside Glucoseon 08-25-2024 FINGERSTICK GLU 140 mg/dL High 74-106 [facility] Comment on above: Result Comment: OLGA GEMENT OF PATIENT CARE PER NURSING PROTOCOL Performed By: #### L 501.080 ####[facility] [address] [place], [address] FINGERSTICK GLU 135 mg/dL High 74-106 [facility] Comment on above: Result Comment: OLGA GEMENT OF PATIENT CARE PER NURSING PROTOCOL Performed By: #### L 501.080 ####[facility] [address] [place], [address] FINGERSTICK GLU 352 mg/dL High 74-106 [facility] Comment on above: Result Comment: OLGA GEMENT OF PATIENT CARE PER NURSING PROTOCOL Performed By: #### L 501.080 ####[facility] [address] [place], [address] FINGERSTICK GLU 209 mg/dL High 74-106 [facility] Comment on above: Result Comment: OLGA GEMENT OF PATIENT CARE PER NURSING PROTOCOL Performed By: #### L 501.080 ####[facility] [address] [place], [address] Brain without Contraston Brain without Contrast Normal [facility] CBC W/Diff, Automatedon 08-13 Absolute Lymph 1.24 X10 3/uL Normal 0.83-4.51 [facility] Comment on above: Performed By: #### L 501.4020, L100.0100, L500.2500, L300.3900, L300.4310 ####[facility] [address] [place], [address] Absolute Neut 8.0 X10 3/uL High 2.0-7.7 [facility] Comment on above: Performed By: #### L 501.4020, L100.0100, L500.2500, L300.3900, L300.4310 ####[facility] [address] [place], [address] Basophils/100 WBC (Bld) 0.5 % Normal 0-1 [facility] Comment on above: Performed By: #### L 501.4020, L100.0100, L500.2500, L300.3900, L300.4310 ####[facility] [address] [place], [address] Eosinophils/100 WBC (Bld) 2.8 % Normal 0-5 [facility] Comment on above: Performed By: #### L 501.4020, L100.0100, L500.2500, L300.3900, L300.4310 ####[facility] [address] [place], [address] Erythrocyte distribution width (RBC) [Ratio] 12.9 % Normal 11.6-14.6 [facility] Comment on above: Performed By: #### L 501.4020, L100.0100, L500.2500, L300.3900, L300.4310 ####[facility] [address] [place], [address] Hematocrit (Bld) [Volume fraction] 33.7 % Low 37-47 [facility] Comment on above: Performed By: #### L 501.4020, L100.0100, L500.2500, L300.3900, L300.4310 ####[facility] [address] [place], [address] Hemoglobin (Bld) [Mass/Vol] 11.5 g/dL Low 12.0-15.0 [facility] Comment on above: Performed By: #### L 501.4020, L100.0100, L500.2500, L300.3900, L300.4310 ####[facility] [address] [place], [address] IG% 0.400 Normal 0.0-0.9 [facility] Comment on above: Result Comment: IG% - Immature Granulocytes (promyelocytes, myelocytes andmetamyelocytes) > 1% indicates that a LEFT SHIFT is Present. Performed By: #### L 501.4020, L100.0100, L500.2500, L300.3900, L300.4310 ####[facility] [address] [place], [address] Lymphocytes/100 WBC (Bld) 11.8 % Low 19-41 [facility] Comment on above: Performed By: #### L 501.4020, L100.0100, L500.2500, L300.3900, L300.4310 ####[facility] [address] [place], [address] MCH (RBC) [Entitic mass] 32.2 pg High 27.0-32.0 [facility] Comment on above: Performed By: #### L 501.4020, L100.0100, L500.2500, L300.3900, L300.4310 ####[facility] [address] [place], [address] MCHC (RBC) [Mass/Vol] 34.1 g/dL Normal 32-36 [facility] Comment on above: Performed By: #### L 501.4020, L100.0100, L500.2500, L300.3900, L300.4310 ####[facility] [address] [place], [address] MCV (RBC) [Entitic vol] 94.4 fL Normal 81-99 [facility] Comment on above: Performed By: #### L 501.4020, L100.0100, L500.2500, L300.3900, L300.4310 ####[facility] [address] [place], [address] Monocytes/100 WBC (Bld) 8.7 % Normal 0-10 [facility] Comment on above: Performed By: #### L 501.4020, L100.0100, L500.2500, L300.3900, L300.4310 ####[facility] [address] [place], [address] Neutrophils/100 WBC (Bld) 75.8 % High 47-70 [facility] Comment on above: Performed By: #### L 501.4020, L100.0100, L500.2500, L300.3900, L300.4310 ####[facility] [address] [place], [address] Nucleated RBC (Bld) [#/Vol] 0 10*3/uL Normal 0-5 [facility] Comment on above: Performed By: #### L 501.4020, L100.0100, L500.2500, L300.3900, L300.4310 ####[facility] [address] [place], [address] Platelet mean volume (Bld) [Entitic vol] 10.0 fL Normal 6.2-12.0 [facility] Comment on above: Performed By: #### L 501.4020, L100.0100, L500.2500, L300.3900, L300.4310 ####[facility] [address] [place], [address] Platelets (Bld) [#/Vol] 278 10*3/uL Normal 150-450 [facility] Comment on above: Performed By: #### L 501.4020, L100.0100, L500.2500, L300.3900, L300.4310 ####[facility] [address] [place], [address] RBC (Bld) [#/Vol] 3.57 10*6/uL Low 4.2-5.4 [facility] Comment on above: Performed By: #### L 501.4020, L100.0100, L500.2500, L300.3900, L300.4310 ####[facility] [address] [place], [address] RDW SD 44.3 fl High 35.1-43.9 [facility] Comment on above: Performed By: #### L 501.4020, L100.0100, L500.2500, L300.3900, L300.4310 ####[facility] [address] [place], [address] WBC (Bld) [#/Vol] 10.6 10*3/uL Normal 4.4-11.0 [facility] Comment on above: Performed By: #### L 501.4020, L100.0100, L500.2500, L300.3900, L300.4310 ####[facility] [address] [place], [address] Carotid Duplex Ultrasoundon 08-25-2024 Carotid Duplex Ultrasound Normal [facility] Chest 1 Viewon 08-25-2024 Chest 1 View Normal [facility] Emergency Department Summary on 08-25-2024 Emergency Department Summary Normal [facility] H AND P Exam - Hospitaliston 08-25-2024 H&P Exam - Hospitalist Normal [facility] L501.4020on 08-25-2024 TROPONIN-I HS 7 pg/mL Normal 3.0-54.0 [facility] Comment on above: Order Comment: 'TROP ' Serial specimen #1, #2 or #3: 1 Result Comment: Plea se Note: New Test Units and Gender Specific Reference Ranges. For more information see Policy Stat Procedure Loyal High Sensitivity Troponin (TNIH) and attachments. Performed By: #### L 501.4020, L100.0100, L500.2500, L300.3900, L300.4310 ####[facility] [address] [place], [address] Partial Thromboplast Timeon 08-25-2024 aPTT Coag (Bld) [Time] 23.0 s Low 24.1-36.2 [facility] Comment on above: Performed By: #### L 501.4020, L100.0100, L500.2500, L300.3900, L300.4310 ####[facility] [address] [place], [address] Prothrombin Time w/INRon INR Coag (PPP) [Relative time] 1.1 {INR} Normal [facility] Comment on above: Performed By: #### L 501.4020, L100.0100, L500.2500, L300.3900, L300.4310 ####[facility] [address] [place], [address] PT Coag (PPP) [Time] 14.1 s Normal 11.7-14.9 [facility] Comment on above: Performed By: #### L 501.4020, L100.0100, L500.2500, L300.3900, L300.4310 ####[facility] [address] [place], [address] STROKE Brain/Head without Co nton 08-25-2024 STROKE Brain/Head without Cont Normal [facility] STROKE CTA Head AND Neck W/C onon 08-25-2024 STROKE CTA Head AND Neck W/Con Normal [facility] Urinalysis, Completeon 08-25 EPI,SQUAMOUS 5-10 SEEN Normal 5-10 [facility] Comment on above: Order Comment: ERICKSON CTOR TO SPECIFY Performed By: #### L 400.0001 ####[facility] [address] [place], [address] RBC 0-5 SEEN Normal 0-5 [facility] Comment on above: Order Comment: ERICKSON CTOR TO SPECIFY Performed By: #### L 400.0001 ####[facility] [address] [place], [address] WBC >100 SEEN Normal 0-5 [facility] Comment on above: Order Comment: ERICKSON CTOR TO SPECIFY Performed By: #### L 400.0001 ####[facility] [address] [place], [address] YEAST 4+ /hpf Normal None Seen [facility] Comment on above: Order Comment: ERICKSON CTOR TO SPECIFY Performed By: #### L 400.0001 ####[facility] [address] [place], [address] BACTERIA 0 SEEN Normal None Seen [facility] Comment on above: Order Comment: ERICKSON CTOR TO SPECIFY Performed By: #### L 400.0001 ####[facility] [address] [place], [address] Mucus Ql (Urine sed) 0 SEEN Normal [facility] Comment on above: Order Comment: ERICKSON CTOR TO SPECIFY Performed By: #### L 400.0001 ####[facility] [address] [place], [address] Bedside Glucoseon 08-24-2024 FINGERSTICK GLU 248 mg/dL High 74-106 [facility] Comment on above: Result Comment: OLGA GOMEZ OF PATIENT CARE PER NURSING PROTOCOL Performed By: #### L 501.080 ####[facility] [address] [place], [address] FINGERSTICK GLU 234 mg/dL High 74-106 [facility] Comment on above: Result Comment: OLGA GEMENT OF PATIENT CARE PER NURSING PROTOCOL Performed By: #### L 501.080 ####[facility] [address] [place], [address] FINGERSTICK GLU 332 mg/dL High [address] [place] [address] Comment on above: Result Comment: OLGA GEMENT OF PATIENT CARE PER NURSING PROTOCOL Performed By: #### L 501.080 ####[facility] [address] [place], [address] FINGERSTICK GLU 185 mg/dL [address] Comment on above: Result Comment: OLGA GEMENT OF PATIENT CARE PER NURSING PROTOCOL Performed By: #### L 501.080 ####[facility] [address] [place], [address] Bedside Glucoseon 08-23-2024 FINGERSTICK GLU 132 mg/dL [address] Comment on above: Result Comment: OLGA GEMENT OF PATIENT CARE PER NURSING PROTOCOL Performed By: #### L 501.080 ####[facility] [address] [place], [address] FINGERSTICK GLU 117 mg/dL [address] Comment on above: Result Comment: OLGA GEMENT OF PATIENT CARE PER NURSING PROTOCOL Performed By: #### L 501.080 ####[facility] [address] [place], [address] FINGERSTICK GLU 225 mg/dL [address] Comment on above: Result Comment: OLGA GEMENT OF PATIENT CARE PER NURSING PROTOCOL Performed By: #### L 501.080 ####[facility] [address] [place], [address] FINGERSTICK GLU 227 mg/dL [address] Comment on above: Result Comment: OLGA GEMENT OF PATIENT CARE PER NURSING PROTOCOL Performed By: #### L 501.080 ####[facility] [address] [place], [address] Basic Metabolic Profile (BMP )on 08-22-2024 BUN/CRE 25.1 RATIO High 10-20 [facility] Comment on above: Performed By: #### L 100.0100, L500.2500 ####[facility] [address] [place], [address] CA,Total 9.1 mg/dL Normal 8.5-10.1 [facility] Comment on above: Performed By: #### L 100.0100, L500.2500 ####[facility] [address] [place], [address] Chloride [Moles/Vol] 105 mmol/L Normal 98-107 [facility] Comment on above: Performed By: #### L 100.0100, L500.2500 ####[facility] [address] [place], [address] CO2 [Moles/Vol] 28.0 mmol/L Normal 21.0-32.0 [facility] Comment on above: Performed By: #### L 100.0100, L500.2500 ####[facility] [address] [place], [address] Creatinine [Mass/Vol] 0.84 mg/dL Normal 0.55-1.02 [facility] Comment on above: Result Comment: The validity of the calculated GFR GFRAA in patients over70 years has not been determined. Clinical correlation isessential. Performed By: #### L 100.0100, L500.2500 ####[facility] [address] [place], [address] ECRCL 47.65 ml/min Normal [facility] Comment on above: Performed By: #### L 100.0100, L500.2500 ####[facility] [address] [place], [address] EST GFR - AA 84 mL/min Normal >60 [facility] Comment on above: Result Comment: Afri can Bruneian GFR Calc Performed By: #### L 100.0100, L500.2500 ####[facility] [address] [place], [address] GAP 5 Normal 5-15 [facility] Comment on above: Performed By: #### L 100.0100, L500.2500 ####[facility] [address] [place], [address] GFR/1.73 sq M.predicted among non-blacks MDRD (S/P/Bld) [Vol rate/Area] 69 mL/min/{1.73_m2} Normal >60 [facility] Comment on above: Result Comment: Non- GFR Calc Performed By: #### L 100.0100, L500.2500 ####[facility] [address] [place], [address] Glucose [Mass/Vol] 181 mg/dL High 74-106 [facility] Comment on above: Result Comment: Fast ing Glucose result greater than or equal to 126 mg/dLsuggests DIABETES MELLITUS per A.D.A. criteria. Performed By: #### L 100.0100, L500.2500 ####[facility] [address] [place], [address] Potassium [Moles/Vol] 4.0 mmol/L Normal 3.5-5.1 [facility] Comment on above: Performed By: #### L 100.0100, L500.2500 ####[facility] [address] [place], [address] Sodium [Moles/Vol] 138 mmol/L Normal 136-145 [facility] Comment on above: Performed By: #### L 100.0100, L500.2500 ####[facility] [address] [place], [address] Urea nitrogen [Mass/Vol] 21 mg/dL High 7-18 [facility] Comment on above: Performed By: #### L 100.0100, L500.2500 ####[facility] [address] [place], [address] Bedside Glucoseon 08-22-2024 FINGERSTICK GLU 141 mg/dL High 74-106 [facility] Comment on above: Result Comment: OLGA GEMENT OF PATIENT CARE PER NURSING PROTOCOL Performed By: #### L 501.080 ####[facility] [address] [place], [address] FINGERSTICK GLU 147 mg/dL High 74-106 [facility] Comment on above: Result Comment: OLGA GEMENT OF PATIENT CARE PER NURSING PROTOCOL Performed By: #### L 501.080 ####[facility] [address] [place], [address] FINGERSTICK GLU 216 mg/dL High 74-106 [facility] Comment on above: Result Comment: OLGA GEMENT OF PATIENT CARE PER NURSING PROTOCOL Performed By: #### L 501.080 ####[facility] [address] [place], [address] FINGERSTICK GLU 163 mg/dL High 74-106 [facility] Comment on above: Result Comment: OLGA GEMENT OF PATIENT CARE PER NURSING PROTOCOL Performed By: #### L 501.080 ####[facility] [address] [place], [address] CBC W/Diff, Automatedon 08-13 0 Absolute Lymph 1.53 X10 3/uL Normal 0.83-4.51 [facility] Comment on above: Performed By: #### L 100.0100, L500.2500 ####[facility] [address] [place], [address] Absolute Neut 3.6 X10 3/uL Normal 2.0-7.7 [facility] Comment on above: Performed By: #### L 100.0100, L500.2500 ####[facility] [address] [place], [address] Basophils/100 WBC (Bld) 0.8 % Normal 0-1 [facility] Comment on above: Performed By: #### L 100.0100, L500.2500 ####[facility] [address] [place], [address] Eosinophils/100 WBC (Bld) 6.1 % High 0-5 [facility] Comment on above: Performed By: #### L 100.0100, L500.2500 ####[facility] [address] [place], [address] Erythrocyte distribution width (RBC) [Ratio] 12.9 % Normal 11.6-14.6 [facility] Comment on above: Performed By: #### L 100.0100, L500.2500 ####[facility] [address] [place], [address] Hematocrit (Bld) [Volume fraction] 35.4 % Low 37-47 [facility] Comment on above: Performed By: #### L 100.0100, L500.2500 ####[facility] [address] [place], [address] Hemoglobin (Bld) [Mass/Vol] 11.8 g/dL Low 12.0-15.0 [facility] Comment on above: Performed By: #### L 100.0100, L500.2500 ####[facility] [address] [place], [address] IG% 0.300 Normal 0.0-0.9 [facility] Comment on above: Result Comment: IG% - Immature Granulocytes (promyelocytes, myelocytes andmetamyelocytes) > 1% indicates that a LEFT SHIFT is Present. Performed By: #### L 100.0100, L500.2500 ####[facility] [address] [place], [address] Lymphocytes/100 WBC (Bld) 24.4 % Normal 19-41 [facility] Comment on above: Performed By: #### L 100.0100, L500.2500 ####[facility] [address] [place], [address] MCH (RBC) [Entitic mass] 31.7 pg Normal 27.0-32.0 [facility] Comment on above: Performed By: #### L 100.0100, L500.2500 ####[facility] [address] [place], [address] MCHC (RBC) [Mass/Vol] 33.3 g/dL Normal 32-36 [facility] Comment on above: Performed By: #### L 100.0100, L500.2500 ####[facility] [address] [place], [address] MCV (RBC) [Entitic vol] 95.2 fL Normal 81-99 [facility] Comment on above: Performed By: #### L 100.0100, L500.2500 ####[facility] [address] [place], [address] Monocytes/100 WBC (Bld) 11.8 % High 0-10 [facility] Comment on above: Performed By: #### L 100.0100, L500.2500 ####[facility] [address] [place], [address] Neutrophils/100 WBC (Bld) 56.6 % Normal 47-70 [facility] Comment on above: Performed By: #### L 100.0100, L500.2500 ####[facility] [address] [place], [address] Nucleated RBC (Bld) [#/Vol] 0 10*3/uL Normal 0-5 [facility] Comment on above: Performed By: #### L 100.0100, L500.2500 ####[facility] [address] [place], [address] Platelet mean volume (Bld) [Entitic vol] 9.9 fL Normal 6.2-12.0 [facility] Comment on above: Performed By: #### L 100.0100, L500.2500 ####[facility] [address] [place], [address] Platelets (Bld) [#/Vol] 263 10*3/uL Normal 150-450 [facility] Comment on above: Performed By: #### L 100.0100, L500.2500 ####[facility] [address] [place], [address] RBC (Bld) [#/Vol] 3.72 10*6/uL Low 4.2-5.4 [facility] Comment on above: Performed By: #### L 100.0100, L500.2500 ####[facility] [address] [place], [address] RDW SD 44.8 fl High 35.1-43.9 [facility] Comment on above: Performed By: #### L 100.0100, L500.2500 ####[facility] [address] [place], [address] WBC (Bld) [#/Vol] 6.3 10*3/uL Normal 4.4-11.0 [facility] Comment on above: Performed By: #### L 100.0100, L500.2500 ####[facility] [address] [place], [address] Bedside Glucoseon 08-21-2024 FINGERSTICK GLU 178 mg/dL High 74-106 [facility] Comment on above: Result Comment: OLGA GOMEZ OF PATIENT CARE PER NURSING PROTOCOL Performed By: #### L 501.080 ####[facility] [address] [place], [address] FINGERSTICK GLU 175 mg/dL High [facility]106 [facility] Comment on above: Result Comment: OLGA GEMENT OF PATIENT CARE PER NURSING PROTOCOL Performed By: #### L 501.080 ####[facility] [address] [place], [address] FINGERSTICK GLU 224 mg/dL High [address] [facility] Comment on above: Result Comment: OLGA GEMENT OF PATIENT CARE PER NURSING PROTOCOL Performed By: #### L 501.080 ####[facility] [address] [place], [address] FINGERSTICK GLU 182 mg/dL [address] Comment on above: Result Comment: OLGA GEMENT OF PATIENT CARE PER NURSING PROTOCOL Performed By: #### L 501.080 ####[facility] [address] [place], [address] Bedside Glucoseon 08-20-2024 FINGERSTICK GLU 118 mg/dL High [address] [place] [address] Comment on above: Result Comment: OLGA GEMENT OF PATIENT CARE PER NURSING PROTOCOL Performed By: #### L 501.080 ####[facility] [address] [place], [address] FINGERSTICK GLU 151 mg/dL High [address] [place] [address] Comment on above: Result Comment: OLGA GEMENT OF PATIENT CARE PER NURSING PROTOCOL Performed By: #### L 501.080 ####[facility] [address] [place], [address] FINGERSTICK GLU 372 mg/dL High [address] [place] [address] Comment on above: Result Comment: OLGA GEMENT OF PATIENT CARE PER NURSING PROTOCOL Performed By: #### L 501.080 ####[facility] [address] [place], [address] FINGERSTICK GLU 179 mg/dL High [address] [place] [address] Comment on above: Result Comment: OLGA GEMENT OF PATIENT CARE PER NURSING PROTOCOL Performed By: #### L 501.080 ####[facility] [address] [place], [address] Bedside Glucoseon 08-19-2024 FINGERSTICK GLU 105 mg/dL Normal 74-106 [facility] Comment on above: Result Comment: OLGA GEMENT OF PATIENT CARE PER NURSING PROTOCOL Performed By: #### L 501.080 ####[facility] [address] [place], [address] FINGERSTICK GLU 155 mg/dL High -106 [facility] Comment on above: Result Comment: OLGA GEMENT OF PATIENT CARE PER NURSING PROTOCOL Performed By: #### L 501.080 ####[facility] [address] [place], [address] FINGERSTICK GLU 316 mg/dL High -[address] [place] [address] Comment on above: Result Comment: OLGA GEMENT OF PATIENT CARE PER NURSING PROTOCOL Performed By: #### L 501.080 ####[facility] [address] [place], [address] FINGERSTICK GLU 210 mg/dL High [address] [place] [address] Comment on above: Result Comment: OLGA GEMENT OF PATIENT CARE PER NURSING PROTOCOL Performed By: #### L 501.080 ####[facility] [address] [place], [address] Bedside Glucoseon 5 FINGERSTICK GLU 243 mg/dL High 74-106 [facility] Comment on above: Result Comment: OLGA GEMENT OF PATIENT CARE PER NURSING PROTOCOL Performed By: #### L 501.080 ####[facility] [address] [place], [address] FINGERSTICK GLU 229 mg/dL High [address] [place] [address] Comment on above: Result Comment: OLGA GEMENT OF PATIENT CARE PER NURSING PROTOCOL Performed By: #### L 501.080 ####[facility] [address] [place], [address] FINGERSTICK GLU 333 mg/dL High 74-106 [facility] Comment on above: Result Comment: OLGA GEMENT OF PATIENT CARE PER NURSING PROTOCOL Performed By: #### L 501.080 ####[facility] [address] [place], [address] FINGERSTICK GLU 279 mg/dL High 74-106 [facility] Comment on above: Result Comment: OLGA GEMENT OF PATIENT CARE PER NURSING PROTOCOL Performed By: #### L 501.080 ####[facility] [address] [place], [address] Vitamin D,25 Hydroxyon 08-18 Vitamin D 25-OH 43.3 ng/mL Normal [facility] Comment on above: Result Comment: Shamika min D 25(OH) Status Range Deficiency <20 ng/mL (50nmol/L) Insufficiency 20 - 30 ng/mL (50 - 75 nmol/L) Sufficiency 30 - 100 ng/mL (75 - 250 nmol/L) Toxicity >100 ng/mL (>250 nmol/L) Performed By: #### L 506.1000 ####[facility] [address] [place], [address] Bedside Glucoseon 08-17-2024 FINGERSTICK GLU 272 mg/dL High 74-106 [facility] Comment on above: Result Comment: OLGA GEMENT OF PATIENT CARE PER NURSING PROTOCOL Performed By: #### L 501.080 ####[facility] [address] [place], [address] FINGERSTICK GLU 303 mg/dL High 74-106 [facility] Comment on above: Result Comment: OLGA GEMENT OF PATIENT CARE PER NURSING PROTOCOL Performed By: #### L 501.080 ####[facility] [address] [place], [address] FINGERSTICK GLU 248 mg/dL High 74-106 [facility] Comment on above: Result Comment: OLGA GEMENT OF PATIENT CARE PER NURSING PROTOCOL Performed By: #### L 501.080 ####[facility] [address] [place], [address] FINGERSTICK GLU 337 mg/dL High 74-106 [facility] Comment on above: Result Comment: OLGA GEMENT OF PATIENT CARE PER NURSING PROTOCOL Performed By: #### L 501.080 ####[facility] [address] [place], [address] FINGERSTICK GLU 268 mg/dL High 74-106 [facility] Comment on above: Result Comment: OLGA GEMENT OF PATIENT CARE PER NURSING PROTOCOL Performed By: #### L 501.080 ####[facility] [address] [place], [address] Bedside Glucoseon 08-16-2024 FINGERSTICK GLU 317 mg/dL High 74-106 [facility] Comment on above: Result Comment: OLGA GEMENT OF PATIENT CARE PER NURSING PROTOCOL Performed By: #### L 501.080 ####[facility] [address] [place], [address] FINGERSTICK GLU 74 mg/dL Normal 74-106 [facility] Comment on above: Result Comment: OLGA GEMENT OF PATIENT CARE PER NURSING PROTOCOL Performed By: #### L 501.080 ####[facility] [address] [place], [address] FINGERSTICK GLU 58 mg/dL Low 74-106 [facility] Comment on above: Result Comment: OLGA GEMENT OF PATIENT CARE PER NURSING PROTOCOL Performed By: #### L 501.080 ####[facility] [address] [place], [address] FINGERSTICK GLU 45 mg/dL Low 74-106 [facility] Comment on above: Result Comment: OLGA GEMENT OF PATIENT CARE PER NURSING PROTOCOL Performed By: #### L 501.080 ####[facility] [address] [place], [address] FINGERSTICK GLU 214 mg/dL High 74-106 [facility] Comment on above: Result Comment: OLGA GEMENT OF PATIENT CARE PER NURSING PROTOCOL Performed By: #### L 501.080 ####[facility] [address] [place], [address] FINGERSTICK GLU 194 mg/dL High 74-106 [facility] Comment on above: Result Comment: OLGA GEMENT OF PATIENT CARE PER NURSING PROTOCOL Performed By: #### L 501.080 ####[facility] [address] [place], [address] Basic Metabolic Profile (BMP )on 08-15-2024 BUN/CRE 27.6 RATIO High 10-20 [facility] Comment on above: Performed By: #### L 500.4100, L500.2500, L100.0100 ####[facility] [address] [place], [address] CA,Total 9.2 mg/dL Normal 8.5-10.1 [facility] Comment on above: Performed By: #### L 500.4100, L500.2500, L100.0100 ####[facility] [address] [place], [address] Chloride [Moles/Vol] 104 mmol/L Normal 98-107 [facility] Comment on above: Performed By: #### L 500.4100, L500.2500, L100.0100 ####[facility] [address] [place], [address] CO2 [Moles/Vol] 27.0 mmol/L Normal 21.0-32.0 [facility] Comment on above: Performed By: #### L 500.4100, L500.2500, L100.0100 ####[facility] [address] [place], [address] Creatinine [Mass/Vol] 0.83 mg/dL Normal 0.55-1.02 [facility] Comment on above: Result Comment: The validity of the calculated GFR GFRAA in patients over70 years has not been determined. Clinical correlation isessential. Performed By: #### L 500.4100, L500.2500, L100.0100 ####[facility] [address] [place], [address] ECRCL 48.36 ml/min Normal [facility] Comment on above: Performed By: #### L 500.4100, L500.2500, L100.0100 ####[facility] [address] [place], [address] EST GFR - AA 84 mL/min Normal >60 [facility] Comment on above: Result Comment: Afri can Bruneian GFR Calc Performed By: #### L 500.4100, L500.2500, L100.0100 ####[facility] [address] [place], [address] GAP 6 Normal 5-15 [facility] Comment on above: Performed By: #### L 500.4100, L500.2500, L100.0100 ####[facility] [address] [place], [address] GFR/1.73 sq M.predicted among non-blacks MDRD (S/P/Bld) [Vol rate/Area] 70 mL/min/{1.73_m2} Normal >60 [facility] Comment on above: Result Comment: Non- GFR Calc Performed By: #### L 500.4100, L500.2500, L100.0100 ####[facility] [address] [place], [address] Glucose [Mass/Vol] 198 mg/dL High 74-106 [facility] Comment on above: Result Comment: Fast ing Glucose result greater than or equal to 126 mg/dLsuggests DIABETES MELLITUS per A.D.A. criteria. Performed By: #### L 500.4100, L500.2500, L100.0100 ####[facility] [address] [place], [address] Potassium [Moles/Vol] 4.1 mmol/L Normal 3.5-5.1 [facility] Comment on above: Performed By: #### L 500.4100, L500.2500, L100.0100 ####[facility] [address] [place], [address] Sodium [Moles/Vol] 136 mmol/L Normal 136-145 [facility] Comment on above: Performed By: #### L 500.4100, L500.2500, L100.0100 ####[facility] [address] [place], [address] Urea nitrogen [Mass/Vol] 23 mg/dL High 7-18 [facility] Comment on above: Performed By: #### L 500.4100, L500.2500, L100.0100 ####[facility] [address] [place], [address] Bedside Glucoseon 08-15-2024 FINGERSTICK GLU 238 mg/dL High 74-106 [facility] Comment on above: Result Comment: OLGA GEMENT OF PATIENT CARE PER NURSING PROTOCOL Performed By: #### L 501.080 ####[facility] [address] [place], [address] FINGERSTICK GLU 131 mg/dL High 74-106 [facility] Comment on above: Result Comment: OLGA GEMENT OF PATIENT CARE PER NURSING PROTOCOL Performed By: #### L 501.080 ####[facility] [address] [place], [address] FINGERSTICK GLU 212 mg/dL High 74-106 [facility] Comment on above: Result Comment: OLGA GEMENT OF PATIENT CARE PER NURSING PROTOCOL Performed By: #### L 501.080 ####[facility] [address] [place], [address] FINGERSTICK GLU 183 mg/dL High 74-106 [facility] Comment on above: Result Comment: OLGA GOMEZ OF PATIENT CARE PER NURSING PROTOCOL Performed By: #### L 501.080 ####[facility] [address] [place], [address] CBC W/Diff, Automatedon 01-0 3-5 Absolute Lymph 1.54 X10 3/uL Normal 0.83-4.51 [facility] Comment on above: Performed By: #### L 500.4100, L500.2500, L100.0100 ####[facility] [address] [place], [address] Absolute Neut 5.3 X10 3/uL Normal 2.0-7.7 [facility] Comment on above: Performed By: #### L 500.4100, L500.2500, L100.0100 ####[facility] [address] [place], [address] Basophils/100 WBC (Bld) 0.7 % Normal 0-1 [facility] Comment on above: Performed By: #### L 500.4100, L500.2500, L100.0100 ####[facility] [address] [place], [address] Eosinophils/100 WBC (Bld) 5.3 % High 0-5 [facility] Comment on above: Performed By: #### L 500.4100, L500.2500, L100.0100 ####[facility] [address] [place], [address] Erythrocyte distribution width (RBC) [Ratio] 13.1 % Normal 11.6-14.6 [facility] Comment on above: Performed By: #### L 500.4100, L500.2500, L100.0100 ####[facility] [address] [place], [address] Hematocrit (Bld) [Volume fraction] 37.6 % Normal 37-47 [facility] Comment on above: Performed By: #### L 500.4100, L500.2500, L100.0100 ####[facility] [address] [place], [address] Hemoglobin (Bld) [Mass/Vol] 12.7 g/dL Normal 12.0-15.0 [facility] Comment on above: Performed By: #### L 500.4100, L500.2500, L100.0100 ####[facility] [address] [place], [address] IG% 0.200 Normal 0.0-0.9 [facility] Comment on above: Result Comment: IG% - Immature Granulocytes (promyelocytes, myelocytes andmetamyelocytes) > 1% indicates that a LEFT SHIFT is Present. Performed By: #### L 500.4100, L500.2500, L100.0100 ####[facility] [address] [place], [address] Lymphocytes/100 WBC (Bld) 19.0 % Normal 19-41 [facility] Comment on above: Performed By: #### L 500.4100, L500.2500, L100.0100 ####[facility] [address] [place], [address] MCH (RBC) [Entitic mass] 31.9 pg Normal 27.0-32.0 [facility] Comment on above: Performed By: #### L 500.4100, L500.2500, L100.0100 ####[facility] [address] [place], [address] MCHC (RBC) [Mass/Vol] 33.8 g/dL Normal 32-36 [facility] Comment on above: Performed By: #### L 500.4100, L500.2500, L100.0100 ####[facility] [address] [place], [address] MCV (RBC) [Entitic vol] 94.5 fL Normal 81-99 [facility] Comment on above: Performed By: #### L 500.4100, L500.2500, L100.0100 ####[facility] [address] [place], [address] Monocytes/100 WBC (Bld) 10.1 % High 0-10 [facility] Comment on above: Performed By: #### L 500.4100, L500.2500, L100.0100 ####[facility] [address] [place], [address] Neutrophils/100 WBC (Bld) 64.7 % Normal 47-70 [facility] Comment on above: Performed By: #### L 500.4100, L500.2500, L100.0100 ####[facility] [address] [place], [address] Nucleated RBC (Bld) [#/Vol] 0 10*3/uL Normal 0-5 [facility] Comment on above: Performed By: #### L 500.4100, L500.2500, L100.0100 ####[facility] [address] [place], [address] Platelet mean volume (Bld) [Entitic vol] 9.9 fL Normal 6.2-12.0 [facility] Comment on above: Performed By: #### L 500.4100, L500.2500, L100.0100 ####[facility] [address] [place], [address] Platelets (Bld) [#/Vol] 270 10*3/uL Normal 150-450 [facility] Comment on above: Performed By: #### L 500.4100, L500.2500, L100.0100 ####[facility] [address] [place], [address] RBC (Bld) [#/Vol] 3.98 10*6/uL Low 4.2-5.4 [facility] Comment on above: Performed By: #### L 500.4100, L500.2500, L100.0100 ####[facility] [address] [place], [address] RDW SD 45.0 fl High 35.1-43.9 [facility] Comment on above: Performed By: #### L 500.4100, L500.2500, L100.0100 ####[facility] [address] [place], [address] WBC (Bld) [#/Vol] 8.1 10*3/uL Normal 4.4-11.0 [facility] Comment on above: Performed By: #### L 500.4100, L500.2500, L100.0100 ####[facility] [address] [place], [address] Lipid Profileon 08-15-2024 Cholesterol [Mass/Vol] 165 mg/dL Normal 200 [facility] Comment on above: Result Comment: <200 mg/dL Desirable 200-240 mg/dL Borderline >240 mg/dL High Risk Performed By: #### L 500.4100, L500.2500, L100.0100 ####[facility] [address] [place], [address] Cholesterol in HDL [Mass/Vol] 61 mg/dL Normal [facility] Comment on above: Result Comment: The drugs N-Acetylcysteine and Metamizole may falselydepress this assay. Reference Range HDL <40 mg/dL Low HDL Cholesterol HDL >or= 60 mg/dL High HDL Cholesterol Performed By: #### L 500.4100, L500.2500, L100.0100 ####[facility] [address] [place], [address] Cholesterol in LDL [Mass/Vol] 75 mg/dL Normal 0-130 [facility] Comment on above: Performed By: #### L 500.4100, L500.2500, L100.0100 ####[facility] [address] [place], [address] Cholesterol in VLDL [Mass/Vol] 29 mg/dL Normal 5-40 [facility] Comment on above: Performed By: #### L 500.4100, L500.2500, L100.0100 ####[facility] [address] [place], [address] Triglyceride [Mass/Vol] 147 mg/dL Normal [facility] Comment on above: Result Comment: The drugs N-Acetylcysteine and Metamizole may falselydepress this assay.Serum Triglycerides Reference Interval Normal <150 mg/dL Borderline high 150 - 199 mg/dL High 200 - 499 mg/dL Very High > or = 500 mg/dL Performed By: #### L 500.4100, L500.2500, L100.0100 ####[facility] [address] [place], [address] Bedside Glucoseon 08-14-2024 FINGERSTICK GLU 153 mg/dL High 74-106 [facility] Comment on above: Result Comment: OLGA GEMENT OF PATIENT CARE PER NURSING PROTOCOL Performed By: #### L 501.080 ####[facility] [address] [place], [address] FINGERSTICK GLU 147 mg/dL High 74-106 [facility] Comment on above: Result Comment: OLGA GEMENT OF PATIENT CARE PER NURSING PROTOCOL Performed By: #### L 501.080 ####[facility] [address] [place], [address] FINGERSTICK GLU 209 mg/dL High 74-106 [facility] Comment on above: Result Comment: OLGA GEMENT OF PATIENT CARE PER NURSING PROTOCOL Performed By: #### L 501.080 ####[facility] [address] [place], [address] FINGERSTICK GLU 231 mg/dL High 74-106 [facility] Comment on above: Result Comment: OLGA GEMENT OF PATIENT CARE PER NURSING PROTOCOL Performed By: #### L 501.080 ####[facility] [address] [place], [address] Bedside Glucoseon 08-13-2024 FINGERSTICK GLU 258 mg/dL High 74-106 [facility] Comment on above: Result Comment: OLGA GEMENT OF PATIENT CARE PER NURSING PROTOCOL Performed By: #### L 501.080 ####[facility] [address] [place], [address] FINGERSTICK GLU 146 mg/dL High 74-106 [facility] Comment on above: Result Comment: OLGA GEMENT OF PATIENT CARE PER NURSING PROTOCOL Performed By: #### L 501.080 ####[facility] [address] [place], [address] FINGERSTICK GLU 79 mg/dL Normal 74-106 [facility] Comment on above: Result Comment: OLGA GEMENT OF PATIENT CARE PER NURSING PROTOCOL Performed By: #### L 501.080 ####[facility] [address] [place], [address] FINGERSTICK GLU 63 mg/dL Low 74-106 [facility] Comment on above: Result Comment: OLGA GEMENT OF PATIENT CARE PER NURSING PROTOCOL Performed By: #### L 501.080 ####[facility] [address] [place], [address] FINGERSTICK GLU 78 mg/dL Normal 74-106 [facility] Comment on above: Result Comment: OLGA GEMENT OF PATIENT CARE PER NURSING PROTOCOL Performed By: #### L 501.080 ####[facility] [address] [place], [address] FINGERSTICK GLU 234 mg/dL High 74-106 [facility] Comment on above: Result Comment: OLGA GEMENT OF PATIENT CARE PER NURSING PROTOCOL Performed By: #### L 501.080 ####[facility] [address] [place], [address] FINGERSTICK GLU 125 mg/dL High 74-106 [facility] Comment on above: Result Comment: OLGA GEMENT OF PATIENT CARE PER NURSING PROTOCOL Performed By: #### L 501.080 ####[facility] [address] [facility] [address] CTA Head AND Neck W/ Contras ton 08-13-2024 CTA Head AND Neck W/ Contrast Normal [facility] Thyroid Peroxidase ABon 01-0 THYR PEROX AB 12 IU/mL Normal 0-34 [facility] Comment on above: Result Comment: Perf ormed at: CB - [facility] [address] [id number] Director: Marco Antonio Diaz PhD, Phone: [phone] Performed By: #### L 9315.6137 ####[facility] [address] [facility] [address] Bedside Glucoseon 08-12-2024 FINGERSTICK GLU 157 mg/dL High 74-106 [facility] Comment on above: Result Comment: OLGA GEMENT OF PATIENT CARE PER NURSING PROTOCOL Performed By: #### L 501.080 ####[facility] [address] [facility] [address] FINGERSTICK GLU 195 mg/dL High 74-106 [facility] Comment on above: Result Comment: OLGA GEMENT OF PATIENT CARE PER NURSING PROTOCOL Performed By: #### L 501.080 ####[facility] [address] [facility] [address] FINGERSTICK GLU 324 mg/dL High 74-106 [facility] Comment on above: Result Comment: OLGA GEMENT OF PATIENT CARE PER NURSING PROTOCOL Performed By: #### L 501.080 ####[facility] [address] [place], [address] FINGERSTICK GLU 137 mg/dL High 74-106 [facility] Comment on above: Result Comment: OLGA GEMENT OF PATIENT CARE PER NURSING PROTOCOL Performed By: #### L 501.080 ####[facility] [address] [place], [address] Brain without Contraston Brain without Contrast Normal [facility] Bedside Glucoseon 08-11-2024 FINGERSTICK GLU 173 mg/dL High 74-106 [facility] Comment on above: Result Comment: OLGA GEMENT OF PATIENT CARE PER NURSING PROTOCOL Performed By: #### L 501.080 ####[facility] [address] [place], [address] FINGERSTICK GLU 152 mg/dL High 74-106 [facility] Comment on above: Result Comment: OLGA GEMENT OF PATIENT CARE PER NURSING PROTOCOL Performed By: #### L 501.080 ####[facility] [address] [place], [address] FINGERSTICK GLU 333 mg/dL High 74-106 [facility] Comment on above: Result Comment: OLGA GEMENT OF PATIENT CARE PER NURSING PROTOCOL Performed By: #### L 501.080 ####[facility] [address] [place], [address] FINGERSTICK GLU 190 mg/dL High 74-106 [facility] Comment on above: Result Comment: OLGA GEMENT OF PATIENT CARE PER NURSING PROTOCOL Performed By: #### L 501.080 ####[facility] [address] [place], [address] T4 Free Directon 08-11-2024 T4 FREE DIRECT 1.14 ng/dL Normal 0.76-1.46 [facility] Comment on above: Order Comment: OKAY TO ADD PER DR PASTOR Performed By: #### L 506.0400 ####[facility] [address] [place], [address] Bedside Glucoseon 08-10-2024 FINGERSTICK GLU 195 mg/dL High [address] [facility] Comment on above: Result Comment: OLGA GEMENT OF PATIENT CARE PER NURSING PROTOCOL Performed By: #### L 501.080 ####[facility] [address] [place], [address] FINGERSTICK GLU 217 mg/dL High [address] [place] [address] Comment on above: Result Comment: OLGA GEMENT OF PATIENT CARE PER NURSING PROTOCOL Performed By: #### L 501.080 ####[facility] [address] [place], [address] FINGERSTICK GLU 301 mg/dL High [address] [place] [address] Comment on above: Result Comment: OLGA GEMENT OF PATIENT CARE PER NURSING PROTOCOL Performed By: #### L 501.080 ####[facility] [address] [place], [address] FINGERSTICK GLU 247 mg/dL High [address] [place] [address] Comment on above: Result Comment: OLGA GEMENT OF PATIENT CARE PER NURSING PROTOCOL Performed By: #### L 501.080 ####[facility] [address] [place], [address] FINGERSTICK GLU 113 mg/dL High [address] [place] [address] Comment on above: Result Comment: OLGA GEMENT OF PATIENT CARE PER NURSING PROTOCOL Performed By: #### L 501.080 ####[facility] [address] [place], [address] Bedside Glucoseon 08-09-2024 FINGERSTICK GLU 130 mg/dL High [facility]106 [facility] Comment on above: Result Comment: OLGA GEMENT OF PATIENT CARE PER NURSING PROTOCOL Performed By: #### L 501.080 ####[facility] [address] [place], [address] FINGERSTICK GLU 145 mg/dL High 74-106 [facility] Comment on above: Result Comment: OLGA GEMENT OF PATIENT CARE PER NURSING PROTOCOL Performed By: #### L 501.080 ####[facility] [address] [place], [address] FINGERSTICK GLU 268 mg/dL High 74-106 [facility] Comment on above: Result Comment: OLGA GEMENT OF PATIENT CARE PER NURSING PROTOCOL Performed By: #### L 501.080 ####[facility] [address] [place], [address] FINGERSTICK GLU 293 mg/dL High 74-106 [facility] Comment on above: Result Comment: OLGA GEMENT OF PATIENT CARE PER NURSING PROTOCOL Performed By: #### L 501.080 ####[facility] [address] [place], [address] FINGERSTICK GLU 255 mg/dL High -106 [facility] Comment on above: Result Comment: OLGA GEMENT OF PATIENT CARE PER NURSING PROTOCOL Performed By: #### L 501.080 ####[facility] [address] [place], [address] Basic Metabolic Profile (BMP )on 08-08-2024 BUN/CRE 24.6 RATIO High 10-20 [facility] Comment on above: Performed By: #### L 500.2500, L100.0100 ####[facility] [address] [place], [address] CA,Total 9.5 mg/dL Normal 8.5-10.1 [facility] Comment on above: Performed By: #### L 500.2500, L100.0100 ####[facility] [address] [place], [address] Chloride [Moles/Vol] 106 mmol/L Normal 98-107 [facility] Comment on above: Performed By: #### L 500.2500, L100.0100 ####[facility] [address] [place], [address] CO2 [Moles/Vol] 23.0 mmol/L Normal 21.0-32.0 [facility] Comment on above: Performed By: #### L 500.2500, L100.0100 ####[facility] [address] [place], [address] Creatinine [Mass/Vol] 0.73 mg/dL Normal 0.55-1.02 [facility] Comment on above: Result Comment: The validity of the calculated GFR GFRAA in patients over70 years has not been determined. Clinical correlation isessential. Performed By: #### L 500.2500, L100.0100 ####[facility] [address] [place], [address] ECRCL 49.55 ml/min Normal [facility] Comment on above: Performed By: #### L 500.2500, L100.0100 ####[facility] [address] [place], [address] EST GFR - AA 98 mL/min Normal >60 [facility] Comment on above: Result Comment: Afri can [place]uneian GFR Calc Performed By: #### L 500.2500, L100.0100 ####[facility] [address] [place], [address] GAP 5 Normal 5-15 [facility] Comment on above: Performed By: #### L 500.2500, L100.0100 ####[facility] [address] [place], [address] GFR/1.73 sq M.predicted among non-blacks MDRD (S/P/Bld) [Vol rate/Area] 81 mL/min/{1.73_m2} Normal >60 [facility] Comment on above: Result Comment: Non- GFR Calc Performed By: #### L 500.2500, L100.0100 ####[facility] [facility] [address] [place], [address] Glucose [Mass/Vol] 250 mg/dL High 74-106 [facility] Comment on above: Result Comment: Gluc ose result greater than or equal to 200 mg/dLsuggests DIABETES MELLITUS per A.D.A. criteria. Performed By: #### L 500.2500, L100.0100 ####[facility] [address] [place], [address] Potassium [Moles/Vol] 4.1 mmol/L Normal 3.5-5.1 [facility] Comment on above: Performed By: #### L 500.2500, L100.0100 ####[facility] [address] [place], [address] Sodium [Moles/Vol] 135 mmol/L Low 136-145 [facility] Comment on above: Performed By: #### L 500.2500, L100.0100 ####[facility] [address] [place], [address] Urea nitrogen [Mass/Vol] 18 mg/dL Normal 7-18 [facility] Comment on above: Performed By: #### L 500.2500, L100.0100 ####[facility] [address] [place], [address] Bedside Glucoseon 08-08-2024 FINGERSTICK GLU 181 mg/dL High 74-106 [facility] Comment on above: Result Comment: OLGA GEMENT OF PATIENT CARE PER NURSING PROTOCOL Performed By: #### L 501.080 ####[facility] [address] [place], [address] FINGERSTICK GLU 227 mg/dL High -[address] [place] [address] Comment on above: Result Comment: OLGA GEMENT OF PATIENT CARE PER NURSING PROTOCOL Performed By: #### L 501.080 ####[facility] [address] [place], [address] FINGERSTICK GLU 233 mg/dL High 74-106 [facility] Comment on above: Result Comment: OLGA GEMENT OF PATIENT CARE PER NURSING PROTOCOL Performed By: #### L 501.080 ####[facility] [address] [place], [address] FINGERSTICK GLU 229 mg/dL High 74-106 [facility] Comment on above: Result Comment: OLGA GEMENT OF PATIENT CARE PER NURSING PROTOCOL Performed By: #### L 501.080 ####[facility] [address] [place], [address] Brain/Head W/WO Contraston 1 10-09-2023 Brain/Head W/WO Contrast Normal [facility] CBC W/Diff, Automatedon 12-2 Absolute Lymph 1.30 X10 3/uL Normal 0.83-4.51 [facility] Comment on above: Performed By: #### L 500.2500, L100.0100 ####[facility] [address] [place], [address] Absolute Neut 4.8 X10 3/uL Normal 2.0-7.7 [facility] Comment on above: Performed By: #### L 500.2500, L100.0100 ####[facility] [address] [place], [address] Basophils/100 WBC (Bld) 0.6 % Normal 0-1 [facility] Comment on above: Performed By: #### L 500.2500, L100.0100 ####[facility] [address] [place], [address] Eosinophils/100 WBC (Bld) 5.1 % High 0-5 [facility] Comment on above: Performed By: #### L 500.2500, L100.0100 ####[facility] [address] [place], [address] Erythrocyte distribution width (RBC) [Ratio] 13.4 % Normal 11.6-14.6 [facility] Comment on above: Performed By: #### L 500.2500, L100.0100 ####[facility] [address] [place], [address] Hematocrit (Bld) [Volume fraction] 38.3 % Normal 37-47 [facility] Comment on above: Performed By: #### L 500.2500, L100.0100 ####[facility] [address] [place], [address] Hemoglobin (Bld) [Mass/Vol] 12.8 g/dL Normal 12.0-15.0 [facility] Comment on above: Performed By: #### L 500.2500, L100.0100 ####[facility] [address] [place], [address] IG% 0.300 Normal 0.0-0.9 [facility] Comment on above: Result Comment: IG% - Immature Granulocytes (promyelocytes, myelocytes andmetamyelocytes) > 1% indicates that a LEFT SHIFT is Present. Performed By: #### L 500.2500, L100.0100 ####[facility] [address] [place], [address] Lymphocytes/100 WBC (Bld) 18.0 % Low 19-41 [facility] Comment on above: Performed By: #### L 500.2500, L100.0100 ####[facility] [address] [place], [address] MCH (RBC) [Entitic mass] 31.6 pg Normal 27.0-32.0 [facility] Comment on above: Performed By: #### L 500.2500, L100.0100 ####[facility] [address] [place], [address] MCHC (RBC) [Mass/Vol] 33.4 g/dL Normal 32-36 [facility] Comment on above: Performed By: #### L 500.2500, L100.0100 ####[facility] [address] [place], [address] MCV (RBC) [Entitic vol] 94.6 fL Normal 81-99 [facility] Comment on above: Performed By: #### L 500.2500, L100.0100 ####[facility] [address] [place], [address] Monocytes/100 WBC (Bld) 10.1 % High 0-10 [facility] Comment on above: Performed By: #### L 500.2500, L100.0100 ####[facility] [address] [place], [address] Neutrophils/100 WBC (Bld) 65.9 % Normal 47-70 [facility] Comment on above: Performed By: #### L 500.2500, L100.0100 ####[facility] [address] [place], [address] Nucleated RBC (Bld) [#/Vol] 0 10*3/uL Normal 0-5 [facility] Comment on above: Performed By: #### L 500.2500, L100.0100 ####[facility] [address] [place], [address] Platelet mean volume (Bld) [Entitic vol] 9.6 fL Normal 6.2-12.0 [facility] Comment on above: Performed By: #### L 500.2500, L100.0100 ####[facility] [address] [place], [address] Platelets (Bld) [#/Vol] 253 10*3/uL Normal 150-450 [facility] Comment on above: Performed By: #### L 500.2500, L100.0100 ####[facility] [address] [place], [address] RBC (Bld) [#/Vol] 4.05 10*6/uL Low 4.2-5.4 [facility] Comment on above: Performed By: #### L 500.2500, L100.0100 ####[facility] [address] [place], [address] RDW SD 46.2 fl High 35.1-43.9 [facility] Comment on above: Performed By: #### L 500.2500, L100.0100 ####[facility] [address] [place], [address] WBC (Bld) [#/Vol] 7.2 10*3/uL Normal 4.4-11.0 [facility] Comment on above: Performed By: #### L 500.2500, L100.0100 ####[facility] [address] [place], [address] Thyroid Stim Hormone (TSH)on 08-08-2024 TSH 7.090 uIU/mL High 0.358-3.74 0 [facility] Comment on above: Performed By: #### L 503.0105, L501.9520 ####[facility] [address] [place], [address] Urine Cultureon 08-08-2024 URC SAMPLE COLLECTED 1443 Yeast, not Shanna albicans [place] Count 50,000-80,000 Normal [facility] Comment on above: Performed By: #### M 100.2200 ####[facility] [address] [place], [address] Vitamin B12on 08-08-2024 Cobalamin (Vitamin B12) [Mass/Vol] 1104 pg/mL High 211-911 [facility] Comment on above: Performed By: #### L 503.0105, L501.9520 ####[facility] [address] [place], [address] Bedside Glucoseon 4 FINGERSTICK GLU 163 mg/dL High [facility]106 [facility] Comment on above: Result Comment: OLGA GEMENT OF PATIENT CARE PER NURSING PROTOCOL Performed By: #### L 501.080 ####[facility] [address] [place], [address] FINGERSTICK GLU 207 mg/dL High [address] [place] [address] Comment on above: Result Comment: OLGA GEMENT OF PATIENT CARE PER NURSING PROTOCOL Performed By: #### L 501.080 ####[facility] [address] [place], [address] FINGERSTICK GLU 248 mg/dL High [address] [place] [address] Comment on above: Result Comment: OLGA GEMENT OF PATIENT CARE PER NURSING PROTOCOL Performed By: #### L 501.080 ####[facility] [address] [place], [address] FINGERSTICK GLU 234 mg/dL High [address] [place] [address] Comment on above: Result Comment: OLGA GEMENT OF PATIENT CARE PER NURSING PROTOCOL Performed By: #### L 501.080 ####[facility] [address] [place], [address] Bedside Glucoseon 4 FINGERSTICK GLU 281 mg/dL High [address] [place] [address] Comment on above: Result Comment: OLGA GEMENT OF PATIENT CARE PER NURSING PROTOCOL Performed By: #### L 501.080 ####[facility] [address] [place], [address] FINGERSTICK GLU 204 mg/dL High [address] [place] [address] Comment on above: Result Comment: OLGA GEMENT OF PATIENT CARE PER NURSING PROTOCOL Performed By: #### L 501.080 ####[facility] [address] [place], [address] FINGERSTICK GLU 252 mg/dL High [address] [place] [address] Comment on above: Result Comment: OLGA GEMENT OF PATIENT CARE PER NURSING PROTOCOL Performed By: #### L 501.080 ####[facility] [address] [place], [address] FINGERSTICK GLU 277 mg/dL High 74-106 [facility] Comment on above: Result Comment: OLGA GEMENT OF PATIENT CARE PER NURSING PROTOCOL Performed By: #### L 501.080 ####[facility] [address] [place], [address] Bedside Glucoseon 08-05-2024 FINGERSTICK GLU 255 mg/dL High -106 [facility] Comment on above: Result Comment: OLGA GEMENT OF PATIENT CARE PER NURSING PROTOCOL Performed By: #### L 501.080 ####[facility] [address] [place], [address] FINGERSTICK GLU 267 mg/dL High 74-106 [facility] Comment on above: Result Comment: OLGA GEMENT OF PATIENT CARE PER NURSING PROTOCOL Performed By: #### L 501.080 ####[facility] [address] [place], [address] FINGERSTICK GLU 439 mg/dL High 74-106 [facility] Comment on above: Result Comment: OLGA GEMENT OF PATIENT CARE PER NURSING PROTOCOL Performed By: #### L 501.080 ####[facility] [address] [place], [address] FINGERSTICK GLU 332 mg/dL High 74-106 [facility] Comment on above: Result Comment: OLGA GEMENT OF PATIENT CARE PER NURSING PROTOCOL Performed By: #### L 501.080 ####[facility] [address] [place], [address] Hemoglobin A1con 08-05-2024 HbA1c (Bld) [Mass fraction] 7.2 % High 3.8-5.6 [facility] Comment on above: Result Comment: Norm al < 5.7 % Prediabetic 5.7 - 6.4 % Diabetic >or= 6.5 % Please note range changes. Performed By: #### L 501.9985 ####[facility] [address] [place], [address] Urinalysis, Completeon 08-05 BACTERIA 1+ /hpf Normal None Seen [facility] Comment on above: Order Comment: Micro scopic field is filled. Other elements may beobscured.CATHETER SPECIMEN Performed By: #### L 400.0001 ####[facility] [address] [place], [address] RBC 0-5 SEEN Normal 0-5 [facility] Comment on above: Order Comment: Micro scopic field is filled. Other elements may beobscured.CATHETER SPECIMEN Performed By: #### L 400.0001 ####[facility] [address] [place], [address] YEAST 2+ /hpf Normal None Seen [facility] Comment on above: Order Comment: Micro scopic field is filled. Other elements may beobscured.CATHETER SPECIMEN Performed By: #### L 400.0001 ####[facility] [address] [place], [address] WBC >100 SEEN Normal 0-5 [facility] Comment on above: Order Comment: Micro scopic field is filled. Other elements may beobscured.CATHETER SPECIMEN Performed By: #### L 400.0001 ####[facility] [address] [place], [address] EPI,SQUAMOUS 0-5 SEEN Normal 5-10 [facility] Comment on above: Order Comment: Micro scopic field is filled. Other elements may beobscured.CATHETER SPECIMEN Performed By: #### L 400.0001 ####[facility] [address] [place], [address] Mucus Ql (Urine sed) 0 SEEN Normal [facility] Comment on above: Order Comment: Micro scopic field is filled. Other elements may beobscured.CATHETER SPECIMEN Performed By: #### L 400.0001 ####[facility] [address] [place], [address] Bedside Glucoseon 08-04-2024 FINGERSTICK GLU 282 mg/dL High 74-106 [facility] Comment on above: Result Comment: OLGA GEMENT OF PATIENT CARE PER NURSING PROTOCOL Performed By: #### L 501.080 ####[facility] [address] [place], [address] FINGERSTICK GLU 253 mg/dL High -106 [facility] Comment on above: Result Comment: OLGA GEMENT OF PATIENT CARE PER NURSING PROTOCOL Performed By: #### L 501.080 ####[facility] [address] [place], [address] FINGERSTICK GLU 336 mg/dL High -106 [facility] Comment on above: Result Comment: OLGA GEMENT OF PATIENT CARE PER NURSING PROTOCOL Performed By: #### L 501.080 ####[facility] [address] [place], [address] FINGERSTICK GLU 220 mg/dL High [address] [place] [address] Comment on above: Result Comment: OLGA GEMENT OF PATIENT CARE PER NURSING PROTOCOL Performed By: #### L 501.080 ####[facility] [address] [place], [address] CBC W/Diff, Automatedon 07-14 Absolute Lymph 1.68 X10 3/uL Normal 0.83-4.51 [facility] Comment on above: Performed By: #### L 100.0100, L500.4050 ####[facility] [address] [place], [address] Absolute Neut 3.7 X10 3/uL Normal 2.0-7.7 [facility] Comment on above: Performed By: #### L 100.0100, L500.4050 ####[facility] [address] [place], [address] Basophils/100 WBC (Bld) 0.6 % Normal 0-1 [facility] Comment on above: Performed By: #### L 100.0100, L500.4050 ####[facility] [address] [place], [address] Eosinophils/100 WBC (Bld) 4.4 % Normal 0-5 [facility] Comment on above: Performed By: #### L 100.0100, L500.4050 ####[facility] [address] [place], [address] Erythrocyte distribution width (RBC) [Ratio] 13.7 % Normal 11.6-14.6 [facility] Comment on above: Performed By: #### L 100.0100, L500.4050 ####[facility] [address] [place], [address] Hematocrit (Bld) [Volume fraction] 36.5 % Low 37-47 [facility] Comment on above: Performed By: #### L 100.0100, L500.4050 ####[facility] [address] [place], [address] Hemoglobin (Bld) [Mass/Vol] 12.0 g/dL Normal 12.0-15.0 [facility] Comment on above: Performed By: #### L 100.0100, L500.4050 ####[facility] [address] [place], [address] IG% 0.200 Normal 0.0-0.9 [facility] Comment on above: Result Comment: IG% - Immature Granulocytes (promyelocytes, myelocytes andmetamyelocytes) > 1% indicates that a LEFT SHIFT is Present. Performed By: #### L 100.0100, L500.4050 ####[facility] [address] [place], [address] Lymphocytes/100 WBC (Bld) 26.2 % Normal 19-41 [facility] Comment on above: Performed By: #### L 100.0100, L500.4050 ####[facility] [address] [place], [address] MCH (RBC) [Entitic mass] 31.4 pg Normal 27.0-32.0 [facility] Comment on above: Performed By: #### L 100.0100, L500.4050 ####[facility] [address] [place], [address] MCHC (RBC) [Mass/Vol] 32.9 g/dL Normal 32-36 [facility] Comment on above: Performed By: #### L 100.0100, L500.4050 ####[facility] [address] [place], [address] MCV (RBC) [Entitic vol] 95.5 fL Normal 81-99 [facility] Comment on above: Performed By: #### L 100.0100, L500.4050 ####[facility] [address] [place], [address] Monocytes/100 WBC (Bld) 10.7 % High 0-10 [facility] Comment on above: Performed By: #### L 100.0100, L500.4050 ####[facility] [address] [place], [address] Neutrophils/100 WBC (Bld) 57.9 % Normal 47-70 [facility] Comment on above: Performed By: #### L 100.0100, L500.4050 ####[facility] [address] [place], [address] Nucleated RBC (Bld) [#/Vol] 0 10*3/uL Normal 0-5 [facility] Comment on above: Performed By: #### L 100.0100, L500.4050 ####[facility] [address] [place], [address] Platelet mean volume (Bld) [Entitic vol] 9.7 fL Normal 6.2-12.0 [facility] Comment on above: Performed By: #### L 100.0100, L500.4050 ####[facility] [address] [place], [address] Platelets (Bld) [#/Vol] 224 10*3/uL Normal 150-450 [facility] Comment on above: Performed By: #### L 100.0100, L500.4050 ####[facility] [address] [place], [address] RBC (Bld) [#/Vol] 3.82 10*6/uL Low 4.2-5.4 [facility] Comment on above: Performed By: #### L 100.0100, L500.4050 ####[facility] [address] [place], [address] RDW SD 47.9 fl High 35.1-43.9 [facility] Comment on above: Performed By: #### L 100.0100, L500.4050 ####[facility] [address] [place], [address] WBC (Bld) [#/Vol] 6.4 10*3/uL Normal 4.4-11.0 [facility] Comment on above: Performed By: #### L 100.0100, L500.4050 ####[facility] [address] [place], [address] Comprehensive Metabolic Prof ilon 08-04-2024 Albumin [Mass/Vol] 3.1 g/dL Low 3.2-5.0 [facility] Comment on above: Performed By: #### L 100.0100, L500.4050 ####[facility] [address] [place], [address] Albumin/Globulin [Mass ratio] 0.9 {ratio} Normal 0.9-2.4 [facility] Comment on above: Performed By: #### L 100.0100, L500.4050 ####[facility] [address] [place], [address] ALK P 72 U/L Normal 45-117 [facility] Comment on above: Performed By: #### L 100.0100, L500.4050 ####[facility] [address] [place], [address] ALT [Catalytic activity/Vol] 20 U/L Normal 13-56 [facility] Comment on above: Performed By: #### L 100.0100, L500.4050 ####[facility] [address] [place], [address] AST [Catalytic activity/Vol] 23 U/L Normal 15-37 [facility] Comment on above: Performed By: #### L 100.0100, L500.4050 ####[facility] [address] [place], [address] Bilirubin [Mass/Vol] 0.80 mg/dL Normal 0.20-1.00 [facility] Comment on above: Result Comment: For patients on eltrombopag therapy, use of Dimension Loyal TBIL is not recommended. Performed By: #### L 100.0100, L500.4050 ####[facility] [address] [place], [address] BUN/CRE 15.9 RATIO Normal 10-20 [facility] Comment on above: Performed By: #### L 100.0100, L500.4050 ####[facility] [address] [place], [address] CA,Total 8.9 mg/dL Normal 8.5-10.1 [facility] Comment on above: Performed By: #### L 100.0100, L500.4050 ####[facility] [address] [place], [address] Chloride [Moles/Vol] 108 mmol/L High 98-107 [facility] Comment on above: Performed By: #### L 100.0100, L500.4050 ####[facility] [address] [place], [address] CO2 [Moles/Vol] 24.0 mmol/L Normal 21.0-32.0 [facility] Comment on above: Performed By: #### L 100.0100, L500.4050 ####[facility] [address] [place], [address] Creatinine [Mass/Vol] 0.82 mg/dL Normal 0.55-1.02 [facility] Comment on above: Result Comment: The validity of the calculated GFR GFRAA in patients over70 years has not been determined. Clinical correlation isessential. Performed By: #### L 100.0100, L500.4050 ####[facility] [address] [place], [address] ECRCL 49.08 ml/min Normal [facility] Comment on above: Performed By: #### L 100.0100, L500.4050 ####[facility] [address] [place], [address] EST GFR - AA 86 mL/min Normal >60 [facility] Comment on above: Result Comment: Afri can [place]une[place] GFR Calc Performed By: #### L 100.0100, L500.4050 ####[facility] [address] [place], [address] GAP 5 Normal 5-15 [facility] Comment on above: Performed By: #### L 100.0100, L500.4050 ####[facility] [address] [place], [address] GFR/1.73 sq M.predicted among non-blacks MDRD (S/P/Bld) [Vol rate/Area] 71 mL/min/{1.73_m2} Normal >60 [facility] Comment on above: Result Comment: Non- GFR Calc Performed By: #### L 100.0100, L500.4050 ####[facility] [address] [place], [address] Globulin (S) [Mass/Vol] 3.5 g/dL Normal 2.2-4.2 [facility] Comment on above: Performed By: #### L 100.0100, L500.4050 ####[facility] [address] [place], [address] Glucose [Mass/Vol] 233 mg/dL High 74-106 [facility] Comment on above: Result Comment: Gluc ose result greater than or equal to 200 mg/dLsuggests DIABETES MELLITUS per A.D.A. criteria. Performed By: #### L 100.0100, L500.4050 ####[facility] [address] [place], [address] Potassium [Moles/Vol] 5.1 mmol/L Normal 3.5-5.1 [facility] Comment on above: Performed By: #### L 100.0100, L500.4050 ####[facility] [address] [place], [address] Sodium [Moles/Vol] 137 mmol/L Normal 136-145 [facility] Comment on above: Performed By: #### L 100.0100, L500.4050 ####[facility] [address] [place], [address] T PROT 6.6 g/dL Normal 6.4-8.2 [facility] Comment on above: Performed By: #### L 100.0100, L500.4050 ####[facility] [address] [place], [address] Urea nitrogen [Mass/Vol] 13 mg/dL Normal 7-18 [facility] Comment on above: Performed By: #### L 100.0100, L500.4050 ####[facility] [address] [place], [address] ENTERIC PATHOGEN PANEL STOOL on 08-04-2024 EP PANEL Normal [facility] Comment on above: Performed By: #### M 100.637 ####[facility] [address] [place], [address] RESPIRATORY PANEL MOLECULARo n 08-04-2024 RP PANEL Normal [facility] Comment on above: Performed By: #### M 100.638 ####[facility] [address] [place], [address] 12 Lead EKGon 08-03-2024 12 Lead EKG Normal [facility] BNP,B-Type NATRIURETIC PEPTI Genoveva 08-03-2024 Natriuretic peptide B (Bld) [Mass/Vol] 51.8 pg/mL Normal 0-100 [facility] Comment on above: Performed By: #### L 503.6620, L501.5425, L501.2450, L500.4050, L100.0500 ####[facility] [address] [place], [address] Bedside Glucoseon 08-03-2024 FINGERSTICK GLU 242 mg/dL High 74-106 [facility] Comment on above: Result Comment: OLGA GEMENT OF PATIENT CARE PER NURSING PROTOCOL Performed By: #### L 501.080 ####[facility] [address] [place], [address] FINGERSTICK GLU 151 mg/dL High 74-106 [facility] Comment on above: Result Comment: OLGA GEMENT OF PATIENT CARE PER NURSING PROTOCOL Performed By: #### L 501.080 ####[facility] [address] [place], [address] Brain/Head without Contrasto n 08-03-2024 Brain/Head without Contrast Normal [facility] CBC-Complete Blood Cnt No Di ffon 08-03-2024 Erythrocyte distribution width (RBC) [Ratio] 13.6 % Normal 11.6-14.6 [facility] Comment on above: Performed By: #### L 503.6620, L501.5425, L501.2450, L500.4050, L100.0500 ####[facility] [address] [place], [address] Hematocrit (Bld) [Volume fraction] 38.6 % Normal 37-47 [facility] Comment on above: Performed By: #### L 503.6620, L501.5425, L501.2450, L500.4050, L100.0500 ####[facility] [address] [place], [address] Hemoglobin (Bld) [Mass/Vol] 13.1 g/dL Normal 12.0-15.0 [facility] Comment on above: Performed By: #### L 503.6620, L501.5425, L501.2450, L500.4050, L100.0500 ####[facility] [address] [place], [address] MCH (RBC) [Entitic mass] 31.7 pg Normal 27.0-32.0 [facility] Comment on above: Performed By: #### L 503.6620, L501.5425, L501.2450, L500.4050, L100.0500 ####[facility] [address] [place], [address] MCHC (RBC) [Mass/Vol] 33.9 g/dL Normal 32-36 [facility] Comment on above: Performed By: #### L 503.6620, L501.5425, L501.2450, L500.4050, L100.0500 ####[facility] [address] [place], [address] MCV (RBC) [Entitic vol] 93.5 fL Normal 81-99 [facility] Comment on above: Performed By: #### L 503.6620, L501.5425, L501.2450, L500.4050, L100.0500 ####[facility] [address] [place], [address] Platelet mean volume (Bld) [Entitic vol] 9.6 fL Normal 6.2-12.0 [facility] Comment on above: Performed By: #### L 503.6620, L501.5425, L501.2450, L500.4050, L100.0500 ####[facility] [address] [place], [address] Platelets (Bld) [#/Vol] 278 10*3/uL Normal 150-450 [facility] Comment on above: Performed By: #### L 503.6620, L501.5425, L501.2450, L500.4050, L100.0500 ####[facility] [address] [place], [address] RBC (Bld) [#/Vol] 4.13 10*6/uL Low 4.2-5.4 [facility] Comment on above: Performed By: #### L 503.6620, L501.5425, L501.2450, L500.4050, L100.0500 ####[facility] [address] [place], [address] RDW SD 46.5 fl High 35.1-43.9 [facility] Comment on above: Performed By: #### L 503.6620, L501.5425, L501.2450, L500.4050, L100.0500 ####[facility] [address] [place], [address] WBC (Bld) [#/Vol] 9.3 10*3/uL Normal 4.4-11.0 [facility] Comment on above: Performed By: #### L 503.6620, L501.5425, L501.2450, L500.4050, L100.0500 ####[facility] [address] [place], [address] CTA Chest W/WO Contraston CTA Chest W/WO Contrast Normal [facility] Chest 1 View (Portable)on Chest 1 View (Portable) Normal [facility] Comprehensive Metabolic Prof ilon 08-03-2024 Albumin [Mass/Vol] 3.5 g/dL Normal 3.2-5.0 [facility] Comment on above: Order Comment: 1Y Performed By: #### L 503.6620, L501.5425, L501.2450, L500.4050, L100.0500 ####[facility] [address] [place], [address] Albumin/Globulin [Mass ratio] 0.9 {ratio} Normal 0.9-2.4 [facility] Comment on above: Order Comment: 1Y Performed By: #### L 503.6620, L501.5425, L501.2450, L500.4050, L100.0500 ####[facility] [address] [place], [address] ALK P 82 U/L Normal 45-117 [facility] Comment on above: Order Comment: 1Y Performed By: #### L 503.6620, L501.5425, L501.2450, L500.4050, L100.0500 ####[facility] [address] [place], [address] ALT [Catalytic activity/Vol] 22 U/L Normal 13-56 [facility] Comment on above: Order Comment: 1Y Performed By: #### L 503.6620, L501.5425, L501.2450, L500.4050, L100.0500 ####[facility] [address] [place], [address] AST [Catalytic activity/Vol] 21 U/L Normal 15-37 [facility] Comment on above: Order Comment: 1Y Performed By: #### L 503.6620, L501.5425, L501.2450, L500.4050, L100.0500 ####[facility] [address] [place], [address] Bilirubin [Mass/Vol] 0.60 mg/dL Normal 0.20-1.00 [facility] Comment on above: Order Comment: 1Y Result Comment: For patients on eltrombopag therapy, use of Dimension Loyal TBIL is not recommended. Performed By: #### L 503.6620, L501.5425, L501.2450, L500.4050, L100.0500 ####[facility] [address] [place], [address] BUN/CRE 12.8 RATIO Normal 10-20 [facility] Comment on above: Order Comment: 1Y Performed By: #### L 503.6620, L501.5425, L501.2450, L500.4050, L100.0500 ####[facility] [address] [place], [address] CA,Total 9.4 mg/dL Normal 8.5-10.1 [facility] Comment on above: Order Comment: 1Y Performed By: #### L 503.6620, L501.5425, L501.2450, L500.4050, L100.0500 ####[facility] [address] [place], [address] Chloride [Moles/Vol] 104 mmol/L Normal 98-107 [facility] Comment on above: Order Comment: 1Y Performed By: #### L 503.6620, L501.5425, L501.2450, L500.4050, L100.0500 ####[facility] [address] [place], [address] CO2 [Moles/Vol] 24.0 mmol/L Normal 21.0-32.0 [facility] Comment on above: Order Comment: 1Y Performed By: #### L 503.6620, L501.5425, L501.2450, L500.4050, L100.0500 ####[facility] [address] [place], [address] Creatinine [Mass/Vol] 1.09 mg/dL High 0.55-1.02 [facility] Comment on above: Order Comment: 1Y Result Comment: The validity of the calculated GFR GFRAA in patients over70 years has not been determined. Clinical correlation isessential. Performed By: #### L 503.6620, L501.5425, L501.2450, L500.4050, L100.0500 ####[facility] [address] [place], [address] ECRCL 37.08 ml/min Normal [facility] Comment on above: Order Comment: 1Y Performed By: #### L 503.6620, L501.5425, L501.2450, L500.4050, L100.0500 ####[facility] [address] [place], [address] EST GFR - AA 62 mL/min Normal >60 [facility] Comment on above: Order Comment: 1Y Result Comment: Afri can Bruneian GFR Calc Performed By: #### L 503.6620, L501.5425, L501.2450, L500.4050, L100.0500 ####[facility] [address] [place], [address] GAP 11 Normal 5-15 [facility] Comment on above: Order Comment: 1Y Performed By: #### L 503.6620, L501.5425, L501.2450, L500.4050, L100.0500 ####[facility] [address] [place], [address] GFR/1.73 sq M.predicted among non-blacks MDRD (S/P/Bld) [Vol rate/Area] 51 mL/min/{1.73_m2} Low >60 [facility] Comment on above: Order Comment: 1Y Result Comment: Non- GFR Calc Performed By: #### L 503.6620, L501.5425, L501.2450, L500.4050, L100.0500 ####[facility] [address] [place], [address] Globulin (S) [Mass/Vol] 4.1 g/dL Normal 2.2-4.2 [facility] Comment on above: Order Comment: 1Y Performed By: #### L 503.6620, L501.5425, L501.2450, L500.4050, L100.0500 ####[facility] [address] [place], [address] Glucose [Mass/Vol] 166 mg/dL High 74-106 [facility] Comment on above: Order Comment: 1Y Result Comment: Fast ing Glucose result greater than or equal to 126 mg/dLsuggests DIABETES MELLITUS per A.D.A. criteria. Performed By: #### L 503.6620, L501.5425, L501.2450, L500.4050, L100.0500 ####[facility] [address] [place], [address] Potassium [Moles/Vol] 3.4 mmol/L Low 3.5-5.1 [facility] Comment on above: Order Comment: 1Y Performed By: #### L 503.6620, L501.5425, L501.2450, L500.4050, L100.0500 ####[facility] [address] [place], [address] Sodium [Moles/Vol] 139 mmol/L Normal 136-145 [facility] Comment on above: Order Comment: 1Y Performed By: #### L 503.6620, L501.5425, L501.2450, L500.4050, L100.0500 ####[facility] [address] [place], [address] T PROT 7.6 g/dL Normal 6.4-8.2 [facility] Comment on above: Order Comment: 1Y Performed By: #### L 503.6620, L501.5425, L501.2450, L500.4050, L100.0500 ####[facility] [address] [place], [address] Urea nitrogen [Mass/Vol] 14 mg/dL Normal 7-18 [facility] Comment on above: Order Comment: 1Y Performed By: #### L 503.6620, L501.5425, L501.2450, L500.4050, L100.0500 ####[facility] [address] [place], [address] Emergency Department Summary on 08-03-2024 Emergency Department Summary Normal [facility] H AND P Exam - Hospitaliston 08-03-2024 H&P Exam - Hospitalist Normal [facility] L501.4020on 08-03-2024 TROPONIN-I HS 38 pg/mL Normal 3.0-54.0 [facility] Comment on above: Result Comment: Leticia em Note: New Test Units and Gender Specific Reference Ranges. For more information see Policy Stat Procedure Loyal High Sensitivity Troponin (TNIH) and attachments. Performed By: #### L 501.4020 ####[facility] [address] [place], [address] L501.5425on 08-03-2024 TROPONIN-I HS 35 pg/mL Normal 3.0-54.0 [facility] Comment on above: Order Comment: 1Y Result Comment: Leticia em Note: New Test Units and Gender Specific Reference Ranges. For more information see Policy Stat Procedure Loyal High Sensitivity Troponin (TNIH) and attachments. Performed By: #### L 503.6620, L501.5425, L501.2450, L500.4050, L100.0500 ####[facility] [address] [place], [address] Legionella Antigen Urineon 1 10-04-2023 LEGU Normal [facility] Comment on above: Performed By: #### M 300.4500, M300.4600 ####[facility] [address] [place], [address] Lipaseon 08-03-2024 Lipase [Catalytic activity/Vol] 18 U/L Normal 13-75 [facility] Comment on above: Order Comment: 1Y Result Comment: Leticia em note:LIPASE revised reference range effective 22.New Lipase methodology. Expected to produce lower valuesthan the previous assay method.NEW Reference Range: 13 - 75 U/L Performed By: #### L 503.6620, L501.5425, L501.2450, L500.4050, L100.0500 ####[facility] [address] [place], [address] M100.678on 08-03-2024 M100.678 Pending SARS-CoV-2 (COVID 19) Negative INFLUENZA A Negative INFLUENZA B Negative RSV PCR Negative Normal [facility] Comment on above: Performed By: #### M 100.678, L400.0001 ####[facility] [address] [place], [address] Magnesiumon 08-03-2024 Magnesium [Mass/Vol] 1.7 mg/dL Normal 1.6-2.6 [facility] Comment on above: Order Comment: Comme nts: may add to ED labs Performed By: #### L 501.5200, L509.7000 ####[facility] [address] [place], [place], [address] Office Visit Reporton 2023 Office Visit Report Normal [facility] Procalcitoninon 08-03-2024 Procalcitonin 0.06 ng/mL Normal 0.00-0.09 [facility] Comment on above: Result Comment: A [...] obtained. Performed By: #### L 501.5200, L509.7000 ####[facility] [address] [place], [place], [address] Strep pneumoniae Antig(UR,CS F)on 08-03-2024 STPAG Normal [facility] Comment on above: Performed By: #### M 300.4500, M300.4600 ####[facility] [address] [place], [place], [address] Urinalysis, Completeon 08-03 BACTERIA 2+ /hpf Normal None Seen [facility] Comment on above: Order Comment: CLEAN CATCH Performed By: #### M 100.678, L400.0001 ####[facility] [address] [place], [address] EPI,SQUAMOUS 5-10 SEEN Normal 5-10 [facility] Comment on above: Order Comment: CLEAN CATCH Performed By: #### M 100.678, L400.0001 ####[facility] [address] [place], [address] Mucus Ql (Urine sed) 2+ /hpf Normal [facility] Comment on above: Order Comment: CLEAN CATCH Performed By: #### M 100.678, L400.0001 ####[facility] [address] [place], [address] RBC 0-5 SEEN Normal 0-5 [facility] Comment on above: Order Comment: CLEAN CATCH Performed By: #### M 100.678, L400.0001 ####[facility] [address] [place], [address] WBC 10-25 SEEN Normal 0-5 [facility] Comment on above: Order Comment: CLEAN CATCH Performed By: #### M 100.678, L400.0001 ####[facility] [address] [place], [address] Culture, Blood (WB)on 2023 CUB Blood cultures x2 fr om two different sites No growth in 5 days. Normal [facility] Comment on above: Performed By: #### M 200.1000 ####[facility] [address] [place], [address] CNOVon 07-15-2024 CNOV Office Visit (INTMWS ) ANA IVORY ([id number]) 1940 F Date Time Provider Department 07/15/24 11:20 AM ALICIA BLOUNT INTMWS During your visit today, we recorded the following information about you: Temperature Pulse Respiration Blood pressure 97.8 degrees 82/minute 16/minute 132/68 Weight 71.6 kg Alicia Blount MD 08/11/2024 1:27 AM Signed Transitional Care Management [facility] Eligibility Documentation Program: Transitional Care [...] a 84 year old lady here for [facility] hospital follow up appointment. Ana [...] has upcoming lab work scheduled with her report clerk, Dr. Munguia. She also reports frequent urination but denies symptoms of diabetic ketoacidosis. Ana uses a Ventolin inhaler for bronchiectasis and requests a refill. She reports that she is supposed to use it three times a day, six puffs each time, but is currently out of the medication. She has an appointment with her flat screen worker, Dr. Chanel, in August. PAST MEDICAL HISTORY Diagnosis Date Acute gastritis without mention of hemorrhage 10/31/2007 Adverse reaction to non-steroidal anti-inflammatory drug (NSAID) 03/28/2010 KATHERIN positive 03/04/2014 Gonzales's esophagus C. difficile diarrhea 10/18/2011 Cataract 04/17/2013 [facility], Dr. Dada Rodríguez. Mild cataract in L eye- no need for cataract surgery at this time. Continue to follow up the cataract. 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 At this time, we anticipate that [...] care [facility] Return to [facility] on Sunday11/18/[address] removal . Enlargement of lymph nodes 12/20/2006 Esophagitis, (more content not included)... Normal [facility] Urine Cultureon 07-13-2024 [facility] Yeast, not Shanna a lbicans [place] Count 80,000-100,000 Normal [facility] Comment on above: Performed By: #### M 100.2200 ####[facility] [address] [place], [address] Basic Metabolic Profile (BMP )on 07-12-2024 BUN/CRE 18.8 RATIO Normal 10-20 [facility] Comment on above: Performed By: #### L 100.0100, L500.2500 ####[facility] [address] [place], [address] CA,Total 8.9 mg/dL Normal 8.5-10.1 [facility] Comment on above: Performed By: #### L 100.0100, L500.2500 ####[facility] [address] [place], [address] Chloride [Moles/Vol] 104 mmol/L Normal 98-107 [facility] Comment on above: Performed By: #### L 100.0100, L500.2500 ####[facility] [address] [place], [address] CO2 [Moles/Vol] 24.0 mmol/L Normal 21.0-32.0 [facility] Comment on above: Performed By: #### L 100.0100, L500.2500 ####[facility] [address] [place], [address] Creatinine [Mass/Vol] 0.80 mg/dL Normal 0.55-1.02 [facility] Comment on above: Result Comment: The validity of the calculated GFR GFRAA in patients over70 years has not been determined. Clinical correlation isessential. Performed By: #### L 100.0100, L500.2500 ####[facility] [address] [place], [address] ECRCL 50.89 ml/min Normal [facility] Comment on above: Performed By: #### L 100.0100, L500.2500 ####[facility] [address] [place], [address] EST GFR - AA 88 mL/min Normal >60 [facility] Comment on above: Result Comment: Afri can Bruneian GFR Calc Performed By: #### L 100.0100, L500.2500 ####[facility] [address] [place], [address] GAP 8 Normal 5-15 [facility] Comment on above: Performed By: #### L 100.0100, L500.2500 ####[facility] [address] [place], [address] GFR/1.73 sq M.predicted among non-blacks MDRD (S/P/Bld) [Vol rate/Area] 73 mL/min/{1.73_m2} Normal >60 [facility] Comment on above: Result Comment: Non- GFR Calc Performed By: #### L 100.0100, L500.2500 ####[facility] [address] [place], [address] Glucose [Mass/Vol] 290 mg/dL High 74-106 [facility] Comment on above: Result Comment: Gluc ose result greater than or equal to 200 mg/dLsuggests DIABETES MELLITUS per A.D.A. criteria. Performed By: #### L 100.0100, L500.2500 ####[facility] [address] [place], [address] Potassium [Moles/Vol] 3.9 mmol/L Normal 3.5-5.1 [facility] Comment on above: Performed By: #### L 100.0100, L500.2500 ####[facility] [address] [place], [address] Sodium [Moles/Vol] 136 mmol/L Normal 136-145 [facility] Comment on above: Performed By: #### L 100.0100, L500.2500 ####[facility] [address] [place], [address] Urea nitrogen [Mass/Vol] 15 mg/dL Normal 7-18 [facility] Comment on above: Performed By: #### L 100.0100, L500.2500 ####[facility] [address] [place], [address] Bedside Glucoseon 07-12-2024 FINGERSTICK GLU 293 mg/dL High 74-106 [facility] Comment on above: Result Comment: OLGA GOMEZ OF PATIENT CARE PER NURSING PROTOCOL Performed By: #### L 501.080 ####[facility] [address] [place], [address] CBC W/Diff, Automatedon 06-15 0 Absolute Lymph 1.64 X10 3/uL Normal 0.83-4.51 [facility] Comment on above: Performed By: #### L 100.0100, L500.2500 ####[facility] [address] [place], [address] Absolute Neut 6.1 X10 3/uL Normal 2.0-7.7 [facility] Comment on above: Performed By: #### L 100.0100, L500.2500 ####[facility] [address] [place], [address] Basophils/100 WBC (Bld) 0.6 % Normal 0-1 [facility] Comment on above: Performed By: #### L 100.0100, L500.2500 ####[facility] [address] [place], [address] Eosinophils/100 WBC (Bld) 2.9 % Normal 0-5 [facility] Comment on above: Performed By: #### L 100.0100, L500.2500 ####[facility] [address] [place], [address] Erythrocyte distribution width (RBC) [Ratio] 13.2 % Normal 11.6-14.6 [facility] Comment on above: Performed By: #### L 100.0100, L500.2500 ####[facility] [address] [place], [address] Hematocrit (Bld) [Volume fraction] 35.3 % Low 37-47 [facility] Comment on above: Performed By: #### L 100.0100, L500.2500 ####[facility] [address] [place], [address] Hemoglobin (Bld) [Mass/Vol] 12.2 g/dL Normal 12.0-15.0 [facility] Comment on above: Performed By: #### L 100.0100, L500.2500 ####[facility] [address] [place], [address] IG% 0.700 Normal 0.0-0.9 [facility] Comment on above: Result Comment: IG% - Immature Granulocytes (promyelocytes, myelocytes andmetamyelocytes) > 1% indicates that a LEFT SHIFT is Present. Performed By: #### L 100.0100, L500.2500 ####[facility] [address] [place], [address] Lymphocytes/100 WBC (Bld) 18.2 % Low 19-41 [facility] Comment on above: Performed By: #### L 100.0100, L500.2500 ####[facility] [address] [place], [address] MCH (RBC) [Entitic mass] 32.4 pg High 27.0-32.0 [facility] Comment on above: Performed By: #### L 100.0100, L500.2500 ####[facility] [address] [place], [address] MCHC (RBC) [Mass/Vol] 34.6 g/dL Normal 32-36 [facility] Comment on above: Performed By: #### L 100.0100, L500.2500 ####[facility] [address] [place], [address] MCV (RBC) [Entitic vol] 93.6 fL Normal 81-99 [facility] Comment on above: Performed By: #### L 100.0100, L500.2500 ####[facility] [address] [place], [address] Monocytes/100 WBC (Bld) 9.7 % Normal 0-10 [facility] Comment on above: Performed By: #### L 100.0100, L500.2500 ####[facility] [address] [place], [address] Neutrophils/100 WBC (Bld) 67.9 % Normal 47-70 [facility] Comment on above: Performed By: #### L 100.0100, L500.2500 ####[facility] [address] [place], [address] Nucleated RBC (Bld) [#/Vol] 0 10*3/uL Normal 0-5 [facility] Comment on above: Performed By: #### L 100.0100, L500.2500 ####[facility] [address] [place], [address] Platelet mean volume (Bld) [Entitic vol] 9.7 fL Normal 6.2-12.0 [facility] Comment on above: Performed By: #### L 100.0100, L500.2500 ####[facility] [address] [place], [address] Platelets (Bld) [#/Vol] 232 10*3/uL Normal 150-450 [facility] Comment on above: Performed By: #### L 100.0100, L500.2500 ####[facility] [address] [place], [address] RBC (Bld) [#/Vol] 3.77 10*6/uL Low 4.2-5.4 [facility] Comment on above: Performed By: #### L 100.0100, L500.2500 ####[facility] [address] [place], [address] RDW SD 45.0 fl High 35.1-43.9 [facility] Comment on above: Performed By: #### L 100.0100, L500.2500 ####[facility] [address] [place], [address] WBC (Bld) [#/Vol] 9.0 10*3/uL Normal 4.4-11.0 [facility] Comment on above: Performed By: #### L 100.0100, L500.2500 ####[facility] [address] [place], [address] Discharge Instructionon 11 Discharge Instruction Normal [facility] Basic Metabolic Profile (BMP )on 07-11-2024 BUN/CRE 17.2 RATIO Normal 10-20 [facility] Comment on above: Performed By: #### L 100.0500, L503.6005, L500.2500 ####[facility] [address] [place], [address] CA,Total 9.0 mg/dL Normal 8.5-10.1 [facility] Comment on above: Performed By: #### L 100.0500, L503.6005, L500.2500 ####[facility] [address] [place], [address] Chloride [Moles/Vol] 105 mmol/L Normal 98-107 [facility] Comment on above: Performed By: #### L 100.0500, L503.6005, L500.2500 ####[facility] [address] [place], [address] CO2 [Moles/Vol] 23.0 mmol/L Normal 21.0-32.0 [facility] Comment on above: Performed By: #### L 100.0500, L503.6005, L500.2500 ####[facility] [address] [place], [address] Creatinine [Mass/Vol] 0.99 mg/dL Normal 0.55-1.02 [facility] Comment on above: Result Comment: The validity of the calculated GFR GFRAA in patients over70 years has not been determined. Clinical correlation isessential. Performed By: #### L 100.0500, L503.6005, L500.2500 ####[facility] [address] [place], [address] ECRCL 41.12 ml/min Normal [facility] Comment on above: Performed By: #### L 100.0500, L503.6005, L500.2500 ####[facility] [address] [place], [address] EST GFR - AA 69 mL/min Normal >60 [facility] Comment on above: Result Comment: Afri can Bruneian GFR Calc Performed By: #### L 100.0500, L503.6005, L500.2500 ####[facility] [address] [place], [address] GAP 8 Normal 5-15 [facility] Comment on above: Performed By: #### L 100.0500, L503.6005, L500.2500 ####[facility] [address] [place], [address] GFR/1.73 sq M.predicted among non-blacks MDRD (S/P/Bld) [Vol rate/Area] 57 mL/min/{1.73_m2} Low >60 [facility] Comment on above: Result Comment: Non- GFR Calc Performed By: #### L 100.0500, L503.6005, L500.2500 ####[facility] [address] [place], [address] Glucose [Mass/Vol] 228 mg/dL High 74-106 [facility] Comment on above: Result Comment: Gluc ose result greater than or equal to 200 mg/dLsuggests DIABETES MELLITUS per A.D.A. criteria. Performed By: #### L 100.0500, L503.6005, L500.2500 ####[facility] [address] [place], [address] Potassium [Moles/Vol] 4.2 mmol/L Normal 3.5-5.1 [facility] Comment on above: Performed By: #### L 100.0500, L503.6005, L500.2500 ####[facility] [address] [place], [address] Sodium [Moles/Vol] 136 mmol/L Normal 136-145 [facility] Comment on above: Performed By: #### L 100.0500, L503.6005, L500.2500 ####[facility] [address] [place], [address] Urea nitrogen [Mass/Vol] 17 mg/dL Normal 7-18 [facility] Comment on above: Performed By: #### L 100.0500, L503.6005, L500.2500 ####[facility] [address] [place], [address] Bedside Glucoseon 07-11-2024 FINGERSTICK GLU 262 mg/dL High [address] [place] [address] Comment on above: Result Comment: OLGA GOMEZ OF PATIENT CARE PER NURSING PROTOCOL Performed By: #### L 501.080 ####[facility] [address] [place], [address] FINGERSTICK GLU 220 mg/dL High -[address] [place] [address] Comment on above: Result Comment: OLGA GEMENT OF PATIENT CARE PER NURSING PROTOCOL Performed By: #### L 501.080 ####[facility] [address] [place], [address] FINGERSTICK GLU 351 mg/dL High 74-106 [facility] Comment on above: Result Comment: OLGA GEMENT OF PATIENT CARE PER NURSING PROTOCOL Performed By: #### L 501.080 ####[facility] [address] [place], [address] FINGERSTICK GLU 233 mg/dL High 74-106 [facility] Comment on above: Result Comment: OLGA GEMENT OF PATIENT CARE PER NURSING PROTOCOL Performed By: #### L 501.080 ####[facility] [address] [place], [address] CBC-Complete Blood Cnt No Di ffon 07-11-2024 Erythrocyte distribution width (RBC) [Ratio] 13.3 % Normal 11.6-14.6 [facility] Comment on above: Performed By: #### L 100.0500, L503.6005, L500.2500 ####[facility] [address] [place], [address] Hematocrit (Bld) [Volume fraction] 34.5 % Low 37-47 [facility] Comment on above: Performed By: #### L 100.0500, L503.6005, L500.2500 ####[facility] [address] [place], [address] Hemoglobin (Bld) [Mass/Vol] 11.7 g/dL Low 12.0-15.0 [facility] Comment on above: Performed By: #### L 100.0500, L503.6005, L500.2500 ####[facility] [address] [place], [address] MCH (RBC) [Entitic mass] 32.0 pg Normal 27.0-32.0 [facility] Comment on above: Performed By: #### L 100.0500, L503.6005, L500.2500 ####[facility] [address] [place], [address] MCHC (RBC) [Mass/Vol] 33.9 g/dL Normal 32-36 [facility] Comment on above: Performed By: #### L 100.0500, L503.6005, L500.2500 ####[facility] [address] [place], [address] MCV (RBC) [Entitic vol] 94.3 fL Normal 81-99 [facility] Comment on above: Performed By: #### L 100.0500, L503.6005, L500.2500 ####[facility] [address] [place], [address] Platelet mean volume (Bld) [Entitic vol] 9.8 fL Normal 6.2-12.0 [facility] Comment on above: Performed By: #### L 100.0500, L503.6005, L500.2500 ####[facility] [address] [place], [address] Platelets (Bld) [#/Vol] 260 10*3/uL Normal 150-450 [facility] Comment on above: Performed By: #### L 100.0500, L503.6005, L500.2500 ####[facility] [address] [place], [address] RBC (Bld) [#/Vol] 3.66 10*6/uL Low 4.2-5.4 [facility] Comment on above: Performed By: #### L 100.0500, L503.6005, L500.2500 ####[facility] [address] [place], [address] RDW SD 46.2 fl High 35.1-43.9 [facility] Comment on above: Performed By: #### L 100.0500, L503.6005, L500.2500 ####[facility] [address] [place], [address] WBC (Bld) [#/Vol] 11.9 10*3/uL High 4.4-11.0 [facility] Comment on above: Performed By: #### L 100.0500, L503.6005, L500.2500 ####[facility] [address] [place], [address] Echo Complete W/ Contraston 07-11-2024 Echo Complete W/ Contrast Normal [facility] Lactic Acidon 07-11-2024 Lactate [Moles/Vol] 1.6 mmol/L Normal 0.4-1.9 [facility] Comment on above: Order Comment: Y Performed By: #### L 100.0500, L503.6005, L500.2500 ####[facility] [address] [place], [address] Lactate [Moles/Vol] 2.5 mmol/L Invalid Interpretation Code 0.4-1.9 [facility] Comment on above: Result Comment: Crit ical Result(s) Called at: 01:32:32 07/11/2024 by: NoahBurns. marianela Welch RN PCU. Results read back by same. Performed By: #### L 503.6005 ####[facility] [address] [place], [address] Abdomen/Pelvis without Conto n 07-10-2024 Abdomen/Pelvis without Cont Normal [facility] BNP,B-Type NATRIURETIC PEPTI Genoveva 07-10-2024 Natriuretic peptide B (Bld) [Mass/Vol] 36.3 pg/mL Normal 0-100 [facility] Comment on above: Performed By: #### L 500.4050, L503.6005, L100.0100, L501.2450, L503.6620, L501.5425 ####[facility] [address] [place], [address] Bedside Glucoseon 07-10-2024 FINGERSTICK GLU 115 mg/dL High 74-106 [facility] Comment on above: Result Comment: OLGA GOMEZ OF PATIENT CARE PER NURSING PROTOCOL Performed By: #### L 501.080 ####[facility] [address] [place], [address] Brain/Head without Contrasto n 07-10-2024 Brain/Head without Contrast Normal [facility] CBC W/Diff, Automatedon - Absolute Lymph 1.64 X10 3/uL Normal 0.83-4.51 [facility] Comment on above: Performed By: #### L 500.4050, L503.6005, L100.0100, L501.2450, L503.6620, L501.5425 ####[facility] [address] [place], [address] Absolute Neut 12.4 X10 3/uL High 2.0-7.7 [facility] Comment on above: Performed By: #### L 500.4050, L503.6005, L100.0100, L501.2450, L503.6620, L501.5425 ####[facility] [address] [place], [address] Basophils/100 WBC (Bld) 0.5 % Normal 0-1 [facility] Comment on above: Performed By: #### L 500.4050, L503.6005, L100.0100, L501.2450, L503.6620, L501.5425 ####[facility] [address] [place], [address] Eosinophils/100 WBC (Bld) 1.1 % Normal 0-5 [facility] Comment on above: Performed By: #### L 500.4050, L503.6005, L100.0100, L501.2450, L503.6620, L501.5425 ####[facility] [address] [place], [address] Erythrocyte distribution width (RBC) [Ratio] 13.3 % Normal 11.6-14.6 [facility] Comment on above: Performed By: #### L 500.4050, L503.6005, L100.0100, L501.2450, L503.6620, L501.5425 ####[facility] [address] [place], [address] Hematocrit (Bld) [Volume fraction] 41.0 % Normal 37-47 [facility] Comment on above: Performed By: #### L 500.4050, L503.6005, L100.0100, L501.2450, L503.6620, L501.5425 ####[facility] [address] [place], [address] Hemoglobin (Bld) [Mass/Vol] 14.1 g/dL Normal 12.0-15.0 [facility] Comment on above: Performed By: #### L 500.4050, L503.6005, L100.0100, L501.2450, L503.6620, L501.5425 ####[facility] [address] [place], [address] IG% 0.400 Normal 0.0-0.9 [facility] Comment on above: Result Comment: IG% - Immature Granulocytes (promyelocytes, myelocytes andmetamyelocytes) > 1% indicates that a LEFT SHIFT is Present. Performed By: #### L 500.4050, L503.6005, L100.0100, L501.2450, L503.6620, L501.5425 ####[facility] [address] [place], [address] Lymphocytes/100 WBC (Bld) 10.5 % Low 19-41 [facility] Comment on above: Performed By: #### L 500.4050, L503.6005, L100.0100, L501.2450, L503.6620, L501.5425 ####[facility] [address] [place], [address] MCH (RBC) [Entitic mass] 32.0 pg Normal 27.0-32.0 [facility] Comment on above: Performed By: #### L 500.4050, L503.6005, L100.0100, L501.2450, L503.6620, L501.5425 ####[facility] [address] [place], [address] MCHC (RBC) [Mass/Vol] 34.4 g/dL Normal 32-36 [facility] Comment on above: Performed By: #### L 500.4050, L503.6005, L100.0100, L501.2450, L503.6620, L501.5425 ####[facility] [address] [place], [address] MCV (RBC) [Entitic vol] 93.2 fL Normal 81-99 [facility] Comment on above: Performed By: #### L 500.4050, L503.6005, L100.0100, L501.2450, L503.6620, L501.5425 ####[facility] [address] [place], [address] Monocytes/100 WBC (Bld) 8.1 % Normal 0-10 [facility] Comment on above: Performed By: #### L 500.4050, L503.6005, L100.0100, L501.2450, L503.6620, L501.5425 ####[facility] [address] [place], [address] Neutrophils/100 WBC (Bld) 79.4 % High 47-70 [facility] Comment on above: Performed By: #### L 500.4050, L503.6005, L100.0100, L501.2450, L503.6620, L501.5425 ####[facility] [address] [place], [address] Nucleated RBC (Bld) [#/Vol] 0 10*3/uL Normal 0-5 [facility] Comment on above: Performed By: #### L 500.4050, L503.6005, L100.0100, L501.2450, L503.6620, L501.5425 ####[facility] [address] [place], [address] Platelet mean volume (Bld) [Entitic vol] 9.6 fL Normal 6.2-12.0 [facility] Comment on above: Performed By: #### L 500.4050, L503.6005, L100.0100, L501.2450, L503.6620, L501.5425 ####[facility] [address] [place], [address] Platelets (Bld) [#/Vol] 311 10*3/uL Normal 150-450 [facility] Comment on above: Performed By: #### L 500.4050, L503.6005, L100.0100, L501.2450, L503.6620, L501.5425 ####[facility] [address] [place], [address] RBC (Bld) [#/Vol] 4.40 10*6/uL Normal 4.2-5.4 [facility] Comment on above: Performed By: #### L 500.4050, L503.6005, L100.0100, L501.2450, L503.6620, L501.5425 ####[facility] [address] [place], [address] RDW SD 45.1 fl High 35.1-43.9 [facility] Comment on above: Performed By: #### L 500.4050, L503.6005, L100.0100, L501.2450, L503.6620, L501.5425 ####[facility] [address] [place], [address] WBC (Bld) [#/Vol] 15.6 10*3/uL High 4.4-11.0 [facility] Comment on above: Performed By: #### L 500.4050, L503.6005, L100.0100, L501.2450, L503.6620, L501.5425 ####[facility] [address] [place], [address] Chest 1 View (Portable)on Chest 1 View (Portable) Normal [facility] Comprehensive Metabolic Prof ilon 07-10-2024 Albumin [Mass/Vol] 3.8 g/dL Normal 3.2-5.0 [facility] Comment on above: Order Comment: 1Y Performed By: #### L 500.4050, L503.6005, L100.0100, L501.2450, L503.6620, L501.5425 ####[facility] [address] [place], [address] Albumin/Globulin [Mass ratio] 1.0 {ratio} Normal 0.9-2.4 [facility] Comment on above: Order Comment: 1Y Performed By: #### L 500.4050, L503.6005, L100.0100, L501.2450, L503.6620, L501.5425 ####[facility] [address] [place], [address] ALK P 101 U/L Normal 45-117 [facility] Comment on above: Order Comment: 1Y Performed By: #### L 500.4050, L503.6005, L100.0100, L501.2450, L503.6620, L501.5425 ####[facility] [address] [place], [address] ALT [Catalytic activity/Vol] 21 U/L Normal 13-56 [facility] Comment on above: Order Comment: 1Y Performed By: #### L 500.4050, L503.6005, L100.0100, L501.2450, L503.6620, L501.5425 ####[facility] [address] [place], [address] AST [Catalytic activity/Vol] 16 U/L Normal 15-37 [facility] Comment on above: Order Comment: 1Y Performed By: #### L 500.4050, L503.6005, L100.0100, L501.2450, L503.6620, L501.5425 ####[facility] [address] [place], [address] Bilirubin [Mass/Vol] 0.30 mg/dL Normal 0.20-1.00 [facility] Comment on above: Order Comment: 1Y Result Comment: For patients on eltrombopag therapy, use of Dimension Loyal TBIL is not recommended. Performed By: #### L 500.4050, L503.6005, L100.0100, L501.2450, L503.6620, L501.5425 ####[facility] [address] [place], [address] BUN/CRE 17.6 RATIO Normal 10-20 [facility] Comment on above: Order Comment: 1Y Performed By: #### L 500.4050, L503.6005, L100.0100, L501.2450, L503.6620, L501.5425 ####[facility] [address] [place], [address] CA,Total 10.0 mg/dL Normal 8.5-10.1 [facility] Comment on above: Order Comment: 1Y Performed By: #### L 500.4050, L503.6005, L100.0100, L501.2450, L503.6620, L501.5425 ####[facility] [address] [place], [address] Chloride [Moles/Vol] 104 mmol/L Normal 98-107 [facility] Comment on above: Order Comment: 1Y Performed By: #### L 500.4050, L503.6005, L100.0100, L501.2450, L503.6620, L501.5425 ####[facility] [address] [place], [address] CO2 [Moles/Vol] 29.0 mmol/L Normal 21.0-32.0 [facility] Comment on above: Order Comment: 1Y Performed By: #### L 500.4050, L503.6005, L100.0100, L501.2450, L503.6620, L501.5425 ####[facility] [address] [place], [address] Creatinine [Mass/Vol] 0.96 mg/dL Normal 0.55-1.02 [facility] Comment on above: Order Comment: 1Y Result Comment: The validity of the calculated GFR GFRAA in patients over70 years has not been determined. Clinical correlation isessential. Performed By: #### L 500.4050, L503.6005, L100.0100, L501.2450, L503.6620, L501.5425 ####[facility] [address] [place], [address] ECRCL 42.72 ml/min Normal [facility] Comment on above: Order Comment: 1Y Performed By: #### L 500.4050, L503.6005, L100.0100, L501.2450, L503.6620, L501.5425 ####[facility] [address] [place], [address] EST GFR - AA 71 mL/min Normal >60 [facility] Comment on above: Order Comment: 1Y Result Comment: Afri can Bruneian GFR Calc Performed By: #### L 500.4050, L503.6005, L100.0100, L501.2450, L503.6620, L501.5425 ####[facility] [address] [place], [address] GAP 7 Normal 5-15 [facility] Comment on above: Order Comment: 1Y Performed By: #### L 500.4050, L503.6005, L100.0100, L501.2450, L503.6620, L501.5425 ####[facility] [address] [place], [address] GFR/1.73 sq M.predicted among non-blacks MDRD (S/P/Bld) [Vol rate/Area] 59 mL/min/{1.73_m2} Low >60 [facility] Comment on above: Order Comment: 1Y Result Comment: Non- GFR Calc Performed By: #### L 500.4050, L503.6005, L100.0100, L501.2450, L503.6620, L501.5425 ####[facility] [address] [place], [address] Globulin (S) [Mass/Vol] 3.9 g/dL Normal 2.2-4.2 [facility] Comment on above: Order Comment: 1Y Performed By: #### L 500.4050, L503.6005, L100.0100, L501.2450, L503.6620, L501.5425 ####[facility] [address] [place], [address] Glucose [Mass/Vol] 136 mg/dL High 74-106 [facility] Comment on above: Order Comment: 1Y Result Comment: Fast ing Glucose result greater than or equal to 126 mg/dLsuggests DIABETES MELLITUS per A.D.A. criteria. Performed By: #### L 500.4050, L503.6005, L100.0100, L501.2450, L503.6620, L501.5425 ####[facility] [address] [place], [address] Potassium [Moles/Vol] 4.1 mmol/L Normal 3.5-5.1 [facility] Comment on above: Order Comment: 1Y Performed By: #### L 500.4050, L503.6005, L100.0100, L501.2450, L503.6620, L501.5425 ####[facility] [address] [place], [address] Sodium [Moles/Vol] 140 mmol/L Normal 136-145 [facility] Comment on above: Order Comment: 1Y Performed By: #### L 500.4050, L503.6005, L100.0100, L501.2450, L503.6620, L501.5425 ####[facility] [address] [place], [address] T PROT 7.7 g/dL Normal 6.4-8.2 [facility] Comment on above: Order Comment: 1Y Performed By: #### L 500.4050, L503.6005, L100.0100, L501.2450, L503.6620, L501.5425 ####[facility] [address] [place], [address] Urea nitrogen [Mass/Vol] 17 mg/dL Normal 7-18 [facility] Comment on above: Order Comment: 1Y Performed By: #### L 500.4050, L503.6005, L100.0100, L501.2450, L503.6620, L501.5425 ####[facility] [address] [place], [address] Emergency Department Summary on 07-10-2024 Emergency Department Summary Normal [facility] H AND P Exam - Hospitaliston 07-10-2024 H&P Exam - Hospitalist Normal [facility] L501.4020on 07-10-2024 TROPONIN-I HS 6 pg/mL Normal 3.0-54.0 [facility] Comment on above: Result Comment: Plea se Note: New Test Units and Gender Specific Reference Ranges. For more information see Policy Stat Procedure Loyal High Sensitivity Troponin (TNIH) and attachments. Performed By: #### L 501.4020 ####[facility] [address] [place], [address] L501.5425on 07-10-2024 TROPONIN-I HS 6 pg/mL Normal 3.0-54.0 [facility] Comment on above: Order Comment: 1Y Result Comment: Plea se Note: New Test Units and Gender Specific Reference Ranges. For more information see Policy Stat Procedure Loyal High Sensitivity Troponin (TNIH) and attachments. Performed By: #### L 500.4050, L503.6005, L100.0100, L501.2450, L503.6620, L501.5425 ####[facility] [address] [place], [place], [address] Lactic Acidon 07-10-2024 Lactate [Moles/Vol] 2.4 mmol/L Invalid Interpretation Code 0.4-1.9 [facility] Comment on above: Order Comment: Y Result Comment: Crit ical Result(s) Called at: 21:29:52 07/10/2024 by: CYNDY. Results read back by Wolf Stoner Performed By: #### L 503.6005 ####[facility] [address] [place], [place], [address] Lactate [Moles/Vol] 2.5 mmol/L Invalid Interpretation Code 0.4-1.9 [facility] Comment on above: Order Comment: Y Result Comment: Crit ical Result(s) Called at: 18:11:29 07/10/2024 by: CYNDY. Results read back by Tierra Dozier Performed By: #### L 500.4050, L503.6005, L100.0100, L501.2450, L503.6620, L501.5425 ####[facility] [address] [place], [address] Lipaseon 07-10-2024 Lipase [Catalytic activity/Vol] 14 U/L Normal 13-75 [facility] Comment on above: Order Comment: 1Y Result Comment: Leticia em note:LIPASE revised reference range effective 22.New Lipase methodology. Expected to produce lower valuesthan the previous assay method.NEW Reference Range: 13 - 75 U/L Performed By: #### L 500.4050, L503.6005, L100.0100, L501.2450, L503.6620, L501.5425 ####[facility] [address] [place], [address] M100.678on 07-10-2024 M100.678 Pending SARS-CoV-2 (COVID 19) Negative INFLUENZA A Negative INFLUENZA B Negative RSV PCR Negative Normal [facility] Comment on above: Performed By: #### M 100.678 ####[facility] [address] [place], [address] Urinalysis, Completeon 07-10 EPI,SQUAMOUS 0-5 SEEN Normal 5-10 [facility] Comment on above: Order Comment: CLEAN CATCH Performed By: #### L 400.0001 ####[facility] [address] [place], [address] RBC 0-5 SEEN Normal 0-5 [facility] Comment on above: Order Comment: CLEAN CATCH Performed By: #### L 400.0001 ####[facility] [address] [place], [address] WBC 5-10 SEEN Normal 0-5 [facility] Comment on above: Order Comment: CLEAN CATCH Performed By: #### L 400.0001 ####[facility] [address] [place], [address] YEAST 1+ /hpf Normal None Seen [facility] Comment on above: Order Comment: CLEAN CATCH Performed By: #### L 400.0001 ####[facility] [address] [place], [address] BACTERIA 0 SEEN Normal None Seen [facility] Comment on above: Order Comment: CLEAN CATCH Performed By: #### L 400.0001 ####[facility] [address] [place], [address] Mucus Ql (Urine sed) 0 SEEN Normal [facility] Comment on above: Order Comment: CLEAN CATCH Performed By: #### L 400.0001 ####[facility] [address] [place], [address] Endocrinology Visit Reporton 07-01-2024 Endocrinology Visit Report Normal [facility] Venous Duplex US - Rick Extre mon 06-23-2024 Venous Duplex US - Rick Extrem Normal [facility] Office Visit Reporton 2023 Office Visit Report Normal [facility] CNOVon 05-27-2024 CNOV Office Visit (INTMWS ) ANA IVORY ([id number]) 1940 F Date Time Provider Department 05/27/24 [...] esophagus C. difficile diarrhea 10/18/2011 Cataract 04/17/2013 [facility] [place], Dr. Dada Rodríguez. Mild cataract in L eye- no need for cataract surgery at this time. Continue to follow up the cataract. 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 At this time, we anticipate that [...] bed, co (more content not included)... Normal [facility] ANA IV[facility] ([id number]) 1940 F Date Time Provider Department 04/28/24 NURSE CARD ADMIN [facility] WSTR CAWSTR During your visit today, we [...] floor at Radiology: [address]; [place] [address] * If you need to cancel or reschedule this test or have any questions regarding this test, please call [phone]. Allergies As of Date: 04/28/2024 Noted Allergy [...] 12/29/2020 14 - Other: See Comments NEOSPORIN (VKULQSPU-ZLUZHYQMGO-[place]* 2 - Rash Comments: blisters PIOGLITAZONE 12/29/2020 [...] at bedtime. (Dr. Genny funes) - Insulin Stanton, Disposable, (BD ULTRA-FINE FOZIA PEN NEEDLE) 32 gauge x 5/32 Use one needle (more content not included)... Normal [facility] XR Chest PA and Lateralon IMPRESSION: No acute radiographic abnormality. [employer] Supervisor: ABHILASH Transcribe Date/Time: Feb 12 2024 11:41A Dictated by : RAKESH MULLEN DO This examination was interpreted and the report reviewed and electronically signed by: RAKESH MULLEN DO on Feb 12 2024 11:44AM [facility] DIVISION OF RADIOLOGY * * *Final [...] No acute finding. DIVISION OF RADIOLOGY Provider, [facility] - 02/12/2024 * * *Final Report* * [...] finding. IMPRESSION IMPRESSION: No acute radiographic abnormality. [employer] Supervisor: PSCB Transcribe Date/Time: Feb 12 2024 11:41A Dictated by : RAKESH MULLEN DO This examination was interpreted and the report reviewed and electronically signed by: RAKESH MULLEN DO on Feb 12 2024 11:44AM EST [facility] Radiology Study observation (narrative) Geraldine Tejeda XR Chest PA and LateralOrder ed By: [facility]cf Provider on 02-12-2024 [facility] ALBUMIN/CREATININE RATIO, UR INEon 02-01-2024 Albumin DL <= 20 mg/L (U) [Mass/Vol] mg/L mg/L [facility] Albumin/Creatinine (U) [Mass ratio] mg/g NINF - 30 mg/g [facility] Comment on above: Adult Male and Femal [...] 87.9 mg/dL 20.0 - 300.0 mg/dL [facility] ECG COMPLETEon 02-01-2024 Atrial Rate 87 BPM [facility] Calculated P [place] 54 degrees [facility] Calculated R [place] -21 degrees [facility] Calculated T [place] 54 degrees [facility] P-R Interval 166 ms [facility] QRS Duration 88 ms [facility] QT Interval 386 ms [facility] QTC Calculation (Bazett) 464 ms [facility] Ventricular Rate 87 BPM [facility] NORMAL SINUS RHYTHM EARLY R WAVE TRANSITION BORDERLINE ECG Confirmed by MD ROBLES GREGORY () on 02/01/2024 8:39:51 AM [facility] NAME : SARAH IVORY PID : [id number] : 1940 Gender : Female Race : ORD : [id number] Procedure Date : Jan 31 2024 11:04:48 [...] CLARENCE BERRY Acquired by : Rhonda HINTON, [facility] AND VASCULAR [facility] UA DIP, URINE (POC)on 2023 BILIRUBIN UA (POCT) Negative Negative [facility] CLARITY UA (POCT) [facility] [facility] COLOR UA (POCT) Dark yellow [facility] GLUCOSE UA (POCT) Negative Negative mg/dL [facility] Hemoglobin Ql (U) Small Abnormal Negative [facility] Interpretation and review of laboratory results Abnormal [facility] KETONE UA (POCT) Negative Negative mg/dL [facility] LEUKOCYTES UA (POCT) Moderate Abnormal Negative [facility] NITRITE UA (POCT) Positive Abnormal Negative [facility] PH UA (POCT) 5.0 4.5 - 8.0 [facility] Protein Ql (U) 100 mg/dL Abnormal Negative [facility] SPECIFIC GRAVITY UA (POCT) 1.015 1.005 - 1.030 [facility] UROBILINOGEN UA (POCT) 0.2 Karla l E.U./dL [facility] Location:[address], [place], [place], [id number] [place] [address] POINT OF CARE [facility] CBC panel Auto (Bld)on 09-28 Erythrocyte distribution width (RBC) [Ratio] 13.2 % 11.5 - 15.0 % [facility] Hematocrit (Bld) [Volume fraction] 37.8 % 36.0 - 46.0 % [facility] Hemoglobin (Bld) [Mass/Vol] 12.8 g/dL 11.5 - 15.5 g/dL [facility] MCH (RBC) [Entitic mass] 31.4 pg 26.0 - 34.0 pg [facility] MCHC (RBC) [Mass/Vol] 33.9 g/dL 30.5 - 36.0 g/dL [facility] MCV (RBC) [Entitic vol] 92.9 fL 80.0 - 100.0 fL [facility] Nucleated RBC (Bld) [#/Vol] <0.01 k/uL [facility] Platelet mean volume (Bld) [Entitic vol] 9.7 fL 9.0 - 12.7 fL [facility] Platelets (Bld) [#/Vol] 219 10*3/uL 150 - 400 k/uL [facility] RBC (Bld) [#/Vol] 4.07 10*6/uL 3.90 - 5.20 m/uL [facility] WBC (Bld) [#/Vol] 6.60 10*3/uL 3.70 - 11.00 k/uL [facility] Comprehensive metabolic 2000 panelon 09-28-2023 Albumin [Mass/Vol] 4.0 g/dL 3.9 - 4.9 g/dL [facility] ALP [Catalytic activity/Vol] 88 U/L 34 - 123 U/L [facility] ALT [Catalytic activity/Vol] 12 U/L 7 - 38 U/L [facility] Anion gap [Moles/Vol] 10 mmol/L 9 - 18 mmol/L [facility] AST [Catalytic activity/Vol] 13 U/L 13 - 35 U/L [facility] Bilirubin [Mass/Vol] 0.4 mg/dL 0.2 - 1 .3 mg/dL [facility] Calcium [Mass/Vol] 8.9 mg/dL 8.5 - 10. 2 mg/dL [facility] Chloride [Moles/Vol] 102 mmol/L 97 - 10 5 mmol/L [facility] CO2 [Moles/Vol] 27 mmol/L 22 - 30 mmol/L [facility] Creatinine [Mass/Vol] 0.68 mg/dL 0.58 - 0.96 mg/dL [facility] Estimated Glomerular Filtration Rate 88 mL/min/1.73m >=60 mL/min/1.7 3m [facility] Glucose [Mass/Vol] 289 mg/dL High 74 - 99 mg/dL [facility] Potassium [Moles/Vol] 4.3 mmol/L 3.7 - 5.1 mmol/L [facility] Protein [Mass/Vol] 6.6 g/dL 6.3 - 8.0 g/dL [facility] Sodium [Moles/Vol] 139 mmol/L 136 - 144 mmol/L [facility] Urea nitrogen [Mass/Vol] 15 mg/dL 7 - 21 mg/dL [facility] HbA1c (Bld)on 09-28-2023 Average glucose Estimated from glycated hemoglobin (Bld) [Mass/Vol] 183 mg/dL [facility] HbA1c (Bld) [Mass fraction] 8.0 % High 4.3 - 5.6 % [facility] Laboratory - Hematology and Cell countson 07-31-2023 HbA1c (Bld) [Mass fraction] 8.4 % 4.2-6.3 [facility] Glucose Glucometer (BldC) [M ass/Vol]Ordered By: Denzel Forbes on 06-26-2023 Glucose [Mass/Vol] 254 mg/dL 74-106 [facility] Comment on above: MANAGEMENT OF PATIEN T CARE PER NURSING PROTOCOL Absolute lymphocyte countOrd ered By: Denzel Forbes on 06-21-2023 Lymphocytes Auto (Unsp spec) [#/Vol] 1.92 10*3/uL 0.83-4.51 [facility] Basophil percentageOrdered B y: Denzel Forbes on 06-21-2023 Basophils/100 WBC (Bld) 0.6 % 0-1 [facility] Chloride [Moles/Vol] 99 mmol/L 98-107 [facility] Eosinophils/100 WBC (Bld) 3.7 % 0-5 [facility] Glucose [Mass/Vol] 215 mg/dL 74-106 [facility] Comment on above: Glucose result great er than or equal to 200 mg/dLsuggests DIABETES MELLITUS per A.D.A. criteria. Neutrophils (Bld) [#/Vol] 8.9 10*3/uL 2.0-7.7 [facility] Neutrophils/100 WBC (Bld) 70.9 % 47-70 [facility] Potassium [Moles/Vol] 4.5 mmol/L 3.5-5.1 [facility] Sodium [Moles/Vol] 137 mmol/L 136-145 [facility] WBC (Bld) [#/Vol] 12.6 10*3/uL 4.4-11.0 [facility] Blood erythrocytes count (nu mber/volume)Ordered By: Denzel Forbes on 06-21-2023 RBC (Bld) [#/Vol] 4.52 10*6/uL 4.2-5.4 [facility] Blood hemoglobin measurement (mass/volume)Ordered By: Denzel Forbes on 06-21-2023 Hemoglobin (Bld) [Mass/Vol] 13.9 g/dL 12.0-15.0 [facility] Blood lymphocytes/100 leukoc ytesOrdered By: Denzel Forbes on 06-21-2023 Lymphocytes/100 WBC (Bld) 15.2 % 19-41 [facility] Blood monocytes/100 leukocyt esOrdered By: Denzel Forbes on 06-21-2023 Monocytes/100 WBC (Bld) 9.3 % 0-10 [facility] Blood platelet mean volumeOr dered By: Denzel Forbes on 06-21-2023 Platelet mean volume (Bld) [Entitic vol] 10.0 fL 6.2-12.0 [facility] Determination of erythrocyte mean corpuscular volume (MCV)Ordered By: Denzel Forbes on 06-21-2023 MCV (RBC) [Entitic vol] 96.2 fL 81-99 [facility] Hematocrit Auto (Bld) [Volum e fraction]Ordered By: Denzel Forbes on 06-21-2023 Hematocrit (Bld) [Volume fraction] 43.5 % 37-47 [facility] Laboratory - Chemistry and C hemistry - challengeOrdered By: Denzel Andrei 06-21-2023 CO2 [Moles/Vol] 30.0 mmol/L 21.0-32.0 [facility] Urea nitrogen/Creatinine [Mass ratio] 21.7 mg/mg 10-20 [facility] Laboratory - Hematology and Cell countsOrdered By: Denzel Forbes 06-21-2023 Erythrocyte distribution width (RBC) [Entitic vol] 48.2 fL 35.1-43.9 [facility] Erythrocyte distribution width (RBC) [Ratio] 13.6 % 11.6-14.6 [facility] Immature granulocytes/100 WBC (Bld) 0.300 % 0.0-0.9 [facility] Comment on above: IG% - Immature Granu locytes (promyelocytes, myelocytes and metamyelocytes) > 1% indicates that a LEFT SHIFT is Present. MCH (RBC) [Entitic mass] 30.8 pg 27.0-32.0 [facility] Nucleated RBC/100 WBC (Bld) [Ratio] 0 % 0-5 [facility] MCHC Auto (RBC) [Mass/Vol]Or dered By: Denzel Forbes on 06-21-2023 MCHC (RBC) [Mass/Vol] 32.0 g/dL 32-36 [facility] No Panel InformationOrdered By: Denzel Forbes on 06-21-2023 Estimated Creatinine Clearance Calc 32.92 ml/min [facility] Estimated GFR (MDRD) Amer 64 mL/min >60 [facility] Comment on above: GFR Calc Estimated GFR (MDRD) Non-Af Amer 53 mL/min >60 [facility] Comment on above: Non- GFR Calc Platelets bldOrdered By: Denzel Forbes on 06-21-2023 Platelets (Bld) [#/Vol] 304 10*3/uL 150-450 [facility] Serum or plasma calcium stephie urement (mass/volume)Ordered By: Denzel Forbes on 06-21-2023 Calcium [Mass/Vol] 9.4 mg/dL 8.5-10.1 [facility] Serum or plasma creatinine m easurement (mass/volume)Ordered By: Denzel Forbes on 06-21-2023 Creatinine [Mass/Vol] 1.06 mg/dL 0.55-1.02 [facility] Comment on above: The validity of the calculated GFR & GFRAA in patients over 70 years has not been determined. Clinical correlation is essential. Serum or plasma urea nitroge n measurement (mass/volume)Ordered By: Denzel Forbes on 06-21-2023 Urea nitrogen [Mass/Vol] 23 mg/dL 7-18 [facility] Thin prep Papanicolaou smear with manual screeningOrdered By: Denzel Forbes on 06-21-2023 Thin prep Papanicolaou smear with manual screening 8 5-15 [facility] Glucose Glucometer (BldC) [M ass/Vol]Ordered By: Denzel Forbes on 06-19-2023 Glucose [Mass/Vol] 244 mg/dL 74-106 [facility] Comment on above: MANAGEMENT OF PATIEN T CARE PER NURSING PROTOCOL Glucose Glucometer (BldC) [M ass/Vol]Ordered By: Denzel Forbes on 06-18-2023 Glucose [Mass/Vol] 202 mg/dL 74-106 [facility] Comment on above: MANAGEMENT OF PATIEN T CARE PER NURSING PROTOCOL Absolute lymphocyte countOrd ered By: Denzel Forbes on 06-14-2023 Lymphocytes Auto (Unsp spec) [#/Vol] 1.94 10*3/uL 0.83-4.51 [facility] Basophil percentageOrdered B y: Denzel Forbes on 06-14-2023 Basophils/100 WBC (Bld) 0.4 % 0-1 [facility] Chloride [Moles/Vol] 104 mmol/L 98-107 [facility] Eosinophils/100 WBC (Bld) 5.6 % 0-5 [facility] Glucose [Mass/Vol] 258 mg/dL 74-106 [facility] Comment on above: Glucose result great er than or equal to 200 mg/dLsuggests DIABETES MELLITUS per A.D.A. criteria. Neutrophils (Bld) [#/Vol] 3.6 10*3/uL 2.0-7.7 [facility] Neutrophils/100 WBC (Bld) 53.7 % 47-70 [facility] Potassium [Moles/Vol] 3.6 mmol/L 3.5-5.1 [facility] Sodium [Moles/Vol] 138 mmol/L 136-145 [facility] WBC (Bld) [#/Vol] 6.7 10*3/uL 4.4-11.0 [facility] Blood erythrocytes count (nu mber/volume)Ordered By: Denzel Forbes on 06-14-2023 RBC (Bld) [#/Vol] 4.01 10*6/uL 4.2-5.4 [facility] Blood hemoglobin measurement (mass/volume)Ordered By: Denzel Forbes on 06-14-2023 Hemoglobin (Bld) [Mass/Vol] 12.5 g/dL 12.0-15.0 [facility] Blood lymphocytes/100 leukoc ytesOrdered By: Denzel Forbes on 06-14-2023 Lymphocytes/100 WBC (Bld) 28.8 % 19-41 [facility] Blood monocytes/100 leukocyt esOrdered By: Denzel Forbes on 06-14-2023 Monocytes/100 WBC (Bld) 11.1 % 0-10 [facility] Blood platelet mean volumeOr dered By: Denzel Forbes on 06-14-2023 Platelet mean volume (Bld) [Entitic vol] 9.6 fL 6.2-12.0 [facility] Determination of erythrocyte mean corpuscular volume (MCV)Ordered By: Denzel Forbes on 06-14-2023 MCV (RBC) [Entitic vol] 91.5 fL 81-99 [facility] Hematocrit Auto (Bld) [Volum e fraction]Ordered By: Denzel Forbes on 06-14-2023 Hematocrit (Bld) [Volume fraction] 36.7 % 37-47 [facility] Laboratory - Chemistry and C hemistry - challengeOrdered By: Denzel Forbes on 06-14-2023 CO2 [Moles/Vol] 27.0 mmol/L 21.0-32.0 [facility] Urea nitrogen/Creatinine [Mass ratio] 23.6 mg/mg 10-20 [facility] Laboratory - Hematology and Cell countsOrdered By: Denzel Forbes on 06-14-2023 Erythrocyte distribution width (RBC) [Entitic vol] 45.3 fL 35.1-43.9 [facility] Erythrocyte distribution width (RBC) [Ratio] 13.5 % 11.6-14.6 [facility] Immature granulocytes/100 WBC (Bld) 0.400 % 0.0-0.9 [facility] Comment on above: IG% - Immature Granu locytes (promyelocytes, myelocytes and metamyelocytes) > 1% indicates that a LEFT SHIFT is Present. MCH (RBC) [Entitic mass] 31.2 pg 27.0-32.0 [facility] Nucleated RBC/100 WBC (Bld) [Ratio] 0 % 0-5 [facility] MCHC Auto (RBC) [Mass/Vol]Or dered By: Denzel Forbes on 06-14-2023 MCHC (RBC) [Mass/Vol] 34.1 g/dL 32-36 [facility] No Panel InformationOrdered By: Denzel Forbes on 06-14-2023 Estimated Creatinine Clearance Calc 34.90 ml/min [facility] Estimated GFR (MDRD) Amer 107 mL/min >60 [facility] Comment on above: GFR Calc Estimated GFR (MDRD) Non-Af Amer 89 mL/min >60 [facility] Comment on above: Non- GFR Calc Platelets bldOrdered By: Denzel Forbes on 06-14-2023 Platelets (Bld) [#/Vol] 218 10*3/uL 150-450 [facility] Serum or plasma calcium stephie urement (mass/volume)Ordered By: Denzel Forbes on 06-14-2023 Calcium [Mass/Vol] 8.5 mg/dL 8.5-10.1 [facility] Serum or plasma creatinine m easurement (mass/volume)Ordered By: Denzel Forbes on 06-14-2023 Creatinine [Mass/Vol] 0.68 mg/dL 0.55-1.02 [facility] Comment on above: The validity of the calculated GFR & GFRAA in patients over 70 years has not been determined. Clinical correlation is essential. Serum or plasma urea nitroge n measurement (mass/volume)Ordered By: Denzel Forbes on 06-14-2023 Urea nitrogen [Mass/Vol] 16 mg/dL 7-18 [facility] Thin prep Papanicolaou smear with manual screeningOrdered By: Denzel Forbes on 06-14-2023 Thin prep Papanicolaou smear with manual screening 7 5-15 [facility] Absolute lymphocyte countOrd ered By: Nacho Poe on 06-13-2023 Lymphocytes Auto (Unsp spec) [#/Vol] 1.66 10*3/uL 0.83-4.51 [facility] Basophil percentageOrdered B y: Nacho Poe on 06-13-2023 Basophil percentage 2.7 mg/dL 2.5-4.9 [facility] Basophils/100 WBC (Bld) 0.6 % 0-1 [facility] Chloride [Moles/Vol] 108 mmol/L 98-107 [facility] Eosinophils/100 WBC (Bld) 6.8 % 0-5 [facility] Glucose [Mass/Vol] 223 mg/dL 74-106 [facility] Comment on above: Glucose result great er than or equal to 200 mg/dLsuggests DIABETES MELLITUS per A.D.A. criteria. Neutrophils (Bld) [#/Vol] 3.9 10*3/uL 2.0-7.7 [facility] Neutrophils/100 WBC (Bld) 56.9 % 47-70 [facility] Potassium [Moles/Vol] 3.5 mmol/L 3.5-5.1 [facility] Sodium [Moles/Vol] 138 mmol/L 136-145 [facility] WBC (Bld) [#/Vol] 6.9 10*3/uL 4.4-11.0 [facility] Blood erythrocytes count (nu mber/volume)Ordered By: Nacho Poe on 06-13-2023 RBC (Bld) [#/Vol] 4.29 10*6/uL 4.2-5.4 [facility] Blood hemoglobin measurement (mass/volume)Ordered By: Nacho Poe on 06-13-2023 Hemoglobin (Bld) [Mass/Vol] 13.0 g/dL 12.0-15.0 [facility] Blood lymphocytes/100 leukoc ytesOrdered By: Nacho Peo on 06-13-2023 Lymphocytes/100 WBC (Bld) 24.1 % 19-41 [facility] Blood monocytes/100 leukocyt esOrdered By: Nacho Poe on 06-13-2023 Monocytes/100 WBC (Bld) 11.2 % 0-10 [facility] Blood platelet mean volumeOr dered By: Nacho Poe on 06-13-2023 Platelet mean volume (Bld) [Entitic vol] 10.0 fL 6.2-12.0 [facility] Determination of erythrocyte mean corpuscular volume (MCV)Ordered By: Nacho Poe on 06-13-2023 MCV (RBC) [Entitic vol] 90.2 fL 81-99 [facility] Glucose Glucometer (dC) [M ass/Vol]Ordered By: Nacho Poe on 06-13-2023 Glucose [Mass/Vol] 335 mg/dL 74-106 [facility] Comment on above: MANAGEMENT OF PATIEN T CARE PER NURSING PROTOCOL Hematocrit Auto (Bld) [Volum e fraction]Ordered By: Nacho Poe on 06-13-2023 Hematocrit (Bld) [Volume fraction] 38.7 % 37-47 [facility] Laboratory - Chemistry and C hemistry - challengeOrdered By: Nacho Poe on 06-13-2023 CO2 [Moles/Vol] 27.0 mmol/L 21.0-32.0 [facility] Magnesium [Mass/Vol] 1.9 mg/dL 1.6-2.6 [facility] Urea nitrogen/Creatinine [Mass ratio] 18.5 mg/mg 10-20 [facility] Laboratory - Hematology and Cell countsOrdered By: Nacho Poe on 06-13-2023 Erythrocyte distribution width (RBC) [Entitic vol] 43.2 fL 35.1-43.9 [facility] Erythrocyte distribution width (RBC) [Ratio] 13.2 % 11.6-14.6 [facility] Immature granulocytes/100 WBC (Bld) 0.400 % 0.0-0.9 [facility] Comment on above: IG% - Immature Granu locytes (promyelocytes, myelocytes and metamyelocytes) > 1% indicates that a LEFT SHIFT is Present. MCH (RBC) [Entitic mass] 30.3 pg 27.0-32.0 [facility] Nucleated RBC/100 WBC (Bld) [Ratio] 0 % 0-5 [facility] MCHC Auto (RBC) [Mass/Vol]Or dered By: Nacho Poe on 06-13-2023 MCHC (RBC) [Mass/Vol] 33.6 g/dL 32-36 [facility] No Panel InformationOrdered By: Nacho Poe on 06-13-2023 Estimated Creatinine Clearance Calc 34.90 ml/min [facility] Estimated GFR (MDRD) Amer 113 mL/min >60 [facility] Comment on above: GFR Calc Estimated GFR (MDRD) Non-Af Amer 93 mL/min >60 [facility] Comment on above: Non- GFR Calc Platelets bldOrdered By: Newton Poe on 06-13-2023 Platelets (Bld) [#/Vol] 213 10*3/uL 150-450 [facility] Serum or plasma calcium stephie urement (mass/volume)Ordered By: Nacho Poe on 06-13-2023 Calcium [Mass/Vol] 8.7 mg/dL 8.5-10.1 [facility] Serum or plasma creatinine m easurement (mass/volume)Ordered By: Nacho Poe on 06-13-2023 Creatinine [Mass/Vol] 0.65 mg/dL 0.55-1.02 [facility] Comment on above: The validity of the calculated GFR & GFRAA in patients over 70 years has not been determined. Clinical correlation is essential. Serum or plasma urea nitroge n measurement (mass/volume)Ordered By: Nacho Poe on 06-13-2023 Urea nitrogen [Mass/Vol] 12 mg/dL 7-18 [facility] Thin prep Papanicolaou smear with manual screeningOrdered By: Nacho Poe on 06-13-2023 Thin prep Papanicolaou smear with manual screening 3 5-15 [facility] Laboratory - Chemistry and C hemistry - challengeOrdered By: Edwin Morgan on 06-11-2023 CK [Catalytic activity/Vol] 240 U/L 26-192 [facility] Serum or plasma acetone stephie urement (mass/volume)Ordered By: Edwin Morgan on 06-11-2023 Acetone [Mass/Vol] SMALL NEG [facility] Comment on above: Previous reported re sult: NEGATIVE Edited by: KEMAR on 06/11/23:0706 AMENDED REPORT 06/11/23 0706 ACETONE SERUM previously reported as: NEGATIVE Absolute lymphocyte countOrd ered By: Dada Pay on 06-10-2023 Lymphocytes Auto (Unsp spec) [#/Vol] 0.73 10*3/uL 0.83-4.51 [facility] Basophil percentageOrdered B y: Dada Pay on 06-10-2023 Lactate [Moles/Vol] 1.7 mmol/L 0.4-2.0 [facility] Basophils/100 WBC (Bld) 0.1 % 0-1 [facility] Bilirubin [Mass/Vol] 0.50 mg/dL 0.20-1.00 [facility] Comment on above: For patients on eltr ombopag therapy, use of Dimension Loyal TBIL is not recommended. Chloride [Moles/Vol] 105 mmol/L 98-107 [facility] Eosinophils/100 WBC (Bld) 2.1 % 0-5 [facility] Glucose [Mass/Vol] 238 mg/dL 74-106 [facility] Comment on above: Glucose result great er than or equal to 200 mg/dLsuggests DIABETES MELLITUS per A.D.A. criteria. Lactate [Moles/Vol] 2.9 mmol/L 0.4-2.0 [facility] Comment on above: Critical Result(s) Checo Dunlap at: 18:41:00 06/10/2023 by: CCrytzer. Results read back by same. Neutrophils (Bld) [#/Vol] 11.1 10*3/uL 2.0-7.7 [facility] Neutrophils/100 WBC (Bld) 86.1 % 47-70 [facility] Potassium [Moles/Vol] 3.9 mmol/L 3.5-5.1 [facility] Protein [Mass/Vol] 8.0 g/dL 6.4-8.2 [facility] Sodium [Moles/Vol] 134 mmol/L 136-145 [facility] WBC (Bld) [#/Vol] 12.9 10*3/uL 4.4-11.0 [facility] Blood erythrocytes count (nu mber/volume)Ordered By: Dada Maynard on 06-10-2023 RBC (Bld) [#/Vol] 4.94 10*6/uL 4.2-5.4 [facility] Blood hemoglobin measurement (mass/volume)Ordered By: Dada Maynard on 06-10-2023 Hemoglobin (Bld) [Mass/Vol] 15.3 g/dL 12.0-15.0 [facility] Blood lymphocytes/100 leukoc ytesOrdered By: Dada Maynard on 06-10-2023 Lymphocytes/100 WBC (Bld) 5.7 % 19-41 [facility] Blood monocytes/100 leukocyt esOrdered By: Dada Maynard on 06-10-2023 Monocytes/100 WBC (Bld) 5.8 % 0-10 [facility] Blood platelet mean volumeOr dered By: Dada Maynard on 06-10-2023 Platelet mean volume (Bld) [Entitic vol] 9.8 fL 6.2-12.0 [facility] COVID-19 virus antigen assay Ordered By: Dada Maynard on 06-10-2023 SARS-CoV-2 (COVID-19) Ag IA.rapid Ql (Resp) [facility] Culture, urineOrdered By: Rainer Maynard on 06-10-2023 Bacteria identified Cx Nom (U) Culture exhibits no growth. [facility] Determination of erythrocyte mean corpuscular volume (MCV)Ordered By: Dada Maynard on 06-10-2023 MCV (RBC) [Entitic vol] 90.7 fL 81-99 [facility] Hematocrit Auto (Bld) [Volum e fraction]Ordered By: Dada Maynard on 06-10-2023 Hematocrit (Bld) [Volume fraction] 44.8 % 37-47 [facility] INR in Blood by Coagulation assayOrdered By: Dada Maynard on 06-10-2023 INR Coag (Bld) [Relative time] 1.1 {INR} [facility] Laboratory - Chemistry and C hemistry - challengeOrdered By: Dada Maynard on 06-10-2023 ALP [Catalytic activity/Vol] 109 U/L 45-117 [facility] ALT [Catalytic activity/Vol] 19 U/L 13-56 [facility] CK [Catalytic activity/Vol] 301 U/L 26-192 [facility] CO2 [Moles/Vol] 17.0 mmol/L 21.0-32.0 [facility] Globulin (S) [Mass/Vol] 4.5 g/dL 2.2-4.2 [facility] Urea nitrogen/Creatinine [Mass ratio] 19.3 mg/mg 10-20 [facility] Laboratory - CoagulationOrde red By: Dada Maynard on 06-10-2023 aPTT Coag (Bld) [Time] 27.6 s 24.1-36.2 [facility] PT Coag (PPP) [Time] 14.0 s 11.7-14.9 [facility] Laboratory - Hematology and Cell countsOrdered By: Dada Maynard on 06-10-2023 Erythrocyte distribution width (RBC) [Entitic vol] 43.3 fL 35.1-43.9 [facility] Erythrocyte distribution width (RBC) [Ratio] 13.2 % 11.6-14.6 [facility] Immature granulocytes/100 WBC (Bld) 0.200 % 0.0-0.9 [facility] Comment on above: IG% - Immature Granu locytes (promyelocytes, myelocytes and metamyelocytes) > 1% indicates that a LEFT SHIFT is Present. MCH (RBC) [Entitic mass] 31.0 pg 27.0-32.0 [facility] Nucleated RBC/100 WBC (Bld) [Ratio] 0 % 0-5 [facility] Laboratory - Microbiology an d Antimicrobial susceptibilityOrdered By: Dada Maynard on 06-10-2023 Bacteria identified Cx Nom (Bld) No growth in 5 days. [facility] MCHC Auto (RBC) [Mass/Vol]Or dered By: Dada Maynard on 06-10-2023 MCHC (RBC) [Mass/Vol] 34.2 g/dL 32-36 [facility] No Panel InformationOrdered By: Dada Maynard on 06-10-2023 Estimated Creatinine Clearance Calc 39.65 ml/min [facility] Estimated GFR (MDRD) Amer 79 mL/min >60 [facility] Comment on above: GFR Calc Estimated GFR (MDRD) Non-Af Amer 66 mL/min >60 [facility] Comment on above: Non- GFR Calc Platelets bldOrdered By: Aidan cheyennejuvenal Maynard on 06-10-2023 Platelets (Bld) [#/Vol] 252 10*3/uL 150-450 [facility] Serum or plasma albumin stephie urement (mass/volume)Ordered By: Dada Maynard on 06-10-2023 Albumin [Mass/Vol] 3.5 g/dL 3.2-5.0 [facility] Serum or plasma albumin/glob ulin mass ratioOrdered By: Dada Maynard on 06-10-2023 Albumin/Globulin [Mass ratio] 0.8 {ratio} 0.9-2.4 [facility] Serum or plasma calcium stephie urement (mass/volume)Ordered By: Dada Maynard on 06-10-2023 Calcium [Mass/Vol] 9.1 mg/dL 8.5-10.1 [facility] Serum or plasma creatinine m easurement (mass/volume)Ordered By: Dada Maynard on 06-10-2023 Creatinine [Mass/Vol] 0.88 mg/dL 0.55-1.02 [facility] Comment on above: The validity of the calculated GFR & GFRAA in patients over 70 years has not been determined. Clinical correlation is essential. Serum or plasma urea nitroge n measurement (mass/volume)Ordered By: Dada Maynard on 06-10-2023 Urea nitrogen [Mass/Vol] 17 mg/dL 7-18 [facility] Thin prep Papanicolaou smear with manual screeningOrdered By: Dada Maynard on 06-10-2023 Thin prep Papanicolaou smear with manual screening 11 U/L 15-37 [facility] Thin prep Papanicolaou smear with manual screening 12 5-15 [facility] ANES POSTPROC EVALon 06-06-2 023 ANES POSTPROC EVAL HNO ID: [id number] Author: Sabino Nelson DO Service: Anesthesiology Author Type: Physician Type: Anesthesia Postprocedure Evaluation Filed: 06/06/2023 12:55 PM Note Text: POST ANESTHESIA EVALUATION NOTE : 1940 Procedure Summary Date: 06/06/23 Room / Location: [facility] [facility] Start: 1145 Anesthesia Stop: [...] June 06, 2023 TIME: 12:55 PM CSN: [id number] Normal [facility] ANES PRE-OPon 06-06-2023 ANES PRE-OP HNO ID: [id number] Author: Sabino Nelson DO Service: Anesthesiology Author Type: Physician Type: Anesthesia Preprocedure Evaluation Filed: 06/06/2023 11:26 AM Note Text: ANESTHESIOLOGY DAY OF SURGERY NOTE : 1940 Procedure Information Date/Time: 06/06/23 1300 Scheduled providers: Erik Underwood MD; Gael Landa APRN.CRNA; Sabino Nelson DO Procedure: EGD DIAGNOSTIC Location: [facility] Endoscopy Estimated body mass index is [...] and consent discussed: yes. Patient / Responsible Libertarian agrees to proceed: yes Patient / Surrogate [...] daily. For 30 days - multivitamin-folic acid-biotin (ANDX-[id number]-KYQGS, MY-JY-[id number],) 400-2,000 mcg tab Take by mouth. - [...] once daily. Take with food - Insulin Stanton, Disposable, (BD ULTRA-FINE FOZIA PEN NEEDLE) 32 [...] directed for allergies - CRANBERRY - Insulin Stanton, Disposable, (more content not included)... Normal [facility] EGD DIAGNOSTICon 06-06-2023 [facility] GLUCOSE, BLOOD (POC)on 06-06 Glucose [Mass/Vol] 234 mg/dL Abnormal 74 - 99 mg/dL [facility] Glucose [Mass/Vol] 275 mg/dL Abnormal 74 - 99 mg/dL [facility] HISTORY PHYSICALon HISTORY PHYSICAL HNO ID: [id number] Author: Erik Underwood MD Service: General Surgery Author Type: Physician Type: HANDP Filed: 06/06/2023 11:57 AM Note Text: HISTORY AND PHYSICAL Ana Wheeler Shannon 1940 REFERRING PHYSICIAN: Clarence Berry APRN.COLLEGE BASKETBALL COACH CHIEF COMPLAINT: Consult (EGD consultation.) HPI: The [...] esophagus C. difficile diarrhea 10/18/2011 Cataract 04/17/2013 [facility] [place], Dr. Dada Rodríguez. Mild cataract in L eye- no need for cataract surgery at this time. Continue to follow up the cataract. 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 At this time, we anticipate that [...] [facility] SPEC VARICIES INJ 12/21/2021 EGD W/O [facility] SPEC VARICIES INJ 12/21/2021 ESOPHAGOGASTRODUODENOSCOPY TRANSORAL [...] by m (more content not included)... Normal [facility] SURGICAL PATHOLOGYon 023 CASE REPORT Normal [facility] Comment on above: Order Comment: Speci men Type: TISSUE SPECIMEN Ordering Facility: [facility] Address: [address] [place] [address] Result Comment: Surg [facility] Pathology Report Case: [id number] Authorizing Provider: Erik Underwood MD Collected: 06/06/2023 12:01 PM Ordering Location: [facility] Endoscopy Received: 06/06/2023 03:24 PM Pathologist: Katherin Rubio MD Specimens: A) - DUODENUM BIOPSY B) - ANTRUM (STOMACH) BIOPSY C) - ESOPHAGUS LOWER BIOPSY, Irregular Z-Line D) - ESOPHAGUS MID BIOPSY Performed By: #### S #### [facility] CLIA [id number] [place] DIAGNOSIS COMMENT Intraepithelial eosi nophils are not identified in the mid esophagus. Fungal forms are not identified. [facility] Comment on above: Order Comment: Speci men Type: TISSUE SPECIMEN Ordering Facility: [facility] Address: [address] [place] [address] Performed By: #### S #### [facility] CLIA [id number] [address] [place] [address] [place] FINAL DIAGNOSIS [facility] Comment on above: Order Comment: Speci men Type: TISSUE SPECIMEN Ordering Facility: [facility] Address: [address] [place] [address] Result Comment: A. D uodenum, biopsy: - [...] comment. AEB/mm/06/08/2023 Performed By: #### S #### [facility] CLIA [id number] [address] [place] [address] [place] FINAL PERFORMING LAB [facility] Comment on above: Order Comment: Speci men Type: TISSUE SPECIMEN Ordering Facility: [facility] Address: [address] [place] [address] Result Comment: Diag nostic interpretation performed at [facility], [address] [place] [address] CLIA# [id number] Surgical Processor: Sebastian Woodward M.D. Performed By: #### S #### [facility] CLIA [id number] [address] [place] [address] [place] GROSS DESCRIPTION Normal [facility] Comment on above: Order Comment: Speci men Type: TISSUE SPECIMEN Ordering Facility: [facility] Address: [address] [place] [address] Result Comment: A. D UODENUM BIOPSY Received [...] in one cassette. Gross examination performed at [facility], [address] [place] [address] June 06, 2023 8:11 PM Performed By: #### S #### [facility] CLIA [id number] [address] [place] [address] [place] Upper GI endoscopy 10-25-2 023 Upper GI endoscopy [facility] Gastrointestinal Endoscopy Patient Name: Ana Ivory Procedure Date: 06/06/2023 11:33 AM Date of : 1940 Admit Type: Outpatient Age: 83 Room: [facility] Gender: Female Note Status: Finalized Attending MD: [...] years for surveillance. - Return to physician bilingual legal assistant in 1 week. - Perform an esophagram at appointment to be scheduled. 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 All rights reserved. 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 Attending Participation: I personally performed the entire procedure. Scope In: 12:00:10 PM Scope Out: 12:05:16 PM MD Erik Durham MD 06/06/2023 12:11:48 PM This report has been signed electronically by Erik Underwood MD Number of Addenda: 0 Note Initiated On: 06/06/2023 11:33 AM Estimated Blood Loss: Estimated blood loss was minimal. 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 DIVISION OF RADIOLOGY Provider, [facility] Nayan [facility] - 01/01/2023 * * *Final Report* * [...] distal phalanx of the right first toe Home Energy Consultant Supervisor: ABHILASH Transcribe Date/Time: Jan 01 2023 3:11P Dictated by : CAMERON ZAMARRIPA MD This examination was interpreted and the report reviewed and electronically signed by: CAMERON ZAMARRIPA MD on Jan 01 2023 3:13PM EST [facility] Radiology Study observation (narrative) [facility] XR Foot - right AP and Later al and obliqueOrdered By: Ccf Provider on 01-01-2023 [facility] No Panel Informationon 10-10 [facility] CBC panel Auto (Bld)on 08-02 Erythrocyte distribution width (RBC) [Ratio] 13.7 % 11.5 - 15.0 % [facility] Hematocrit (Bld) [Volume fraction] 37.8 % 36.0 - 46.0 % [facility] Hemoglobin (Bld) [Mass/Vol] 12.9 g/dL 11.5 - 15.5 g/dL [facility] MCH (RBC) [Entitic mass] 31.2 pg 26.0 - 34.0 pg [facility] MCHC (RBC) [Mass/Vol] 34.1 g/dL 30.5 - 36.0 g/dL [facility] MCV (RBC) [Entitic vol] 91.5 fL 80.0 - 100.0 fL [facility] Nucleated RBC (Bld) [#/Vol] <0.01 k/uL [facility] Platelet mean volume (Bld) [Entitic vol] 9.8 fL 9.0 - 12.7 fL [facility] Platelets (Bld) [#/Vol] 230 10*3/uL 150 - 400 k/uL [facility] RBC (Bld) [#/Vol] 4.13 10*6/uL 3.90 - 5.20 m/uL [facility] WBC (Bld) [#/Vol] 7.40 10*3/uL 3.70 - 11.00 k/uL [facility] Comprehensive metabolic 2000 panelon 08-02-2022 Albumin [Mass/Vol] 4.3 g/dL 3.9 - 4.9 g/dL [facility] ALP [Catalytic activity/Vol] 94 U/L 34 - 123 U/L [facility] ALT [Catalytic activity/Vol] 17 U/L 7 - 38 U/L [facility] Anion gap [Moles/Vol] 12 mmol/L 9 - 18 mmol/L [facility] AST [Catalytic activity/Vol] 19 U/L 13 - 35 U/L [facility] Bilirubin [Mass/Vol] 0.4 mg/dL 0.2 - 1 .3 mg/dL [facility] Calcium [Mass/Vol] 8.8 mg/dL 8.5 - 10. 2 mg/dL [facility] Chloride [Moles/Vol] 104 mmol/L 97 - 10 5 mmol/L [facility] CO2 [Moles/Vol] 26 mmol/L 22 - 30 mmol/L [facility] Creatinine [Mass/Vol] 0.69 mg/dL 0.58 - 0.96 mg/dL [facility] Estimated Glomerular Filtration Rate 88 mL/min/1.73m >=60 mL/min/1.7 3m [facility] Glucose [Mass/Vol] 232 mg/dL High 74 - 99 mg/dL [facility] Potassium [Moles/Vol] 4.1 mmol/L 3.7 - 5.1 mmol/L [facility] Protein [Mass/Vol] 6.8 g/dL 6.3 - 8.0 g/dL [facility] Sodium [Moles/Vol] 142 mmol/L 136 - 144 mmol/L [facility] Urea nitrogen [Mass/Vol] 17 mg/dL 7 - 21 mg/dL [facility] Laboratory - Hematology and Cell countson 05-26-2022 HbA1c (Bld) [Mass fraction] 7.5 % 4.2-6.3 [facility] No Panel Informationon 04-03 [facility] XR ANKLE GENERAL 3V AP/LAT/O BL RIGHTon 01-30-2022 [facility] XR Ankle - right AP and Late ral and obliqueon 01-30-2022 IMPRESSION: No acute osseous abnormality identified. Home Energy Consultant Supervisor: ABHILASH Transcribe Date/Time: Jan 30 2022 [...] _USE_DIVIS ION OF RADIOLOGY Provider, Malou Spicer [facility] - 01/30/2022 * * *Final Report* * [...] IMPRESSION IMPRESSION: No acute osseous abnormality identified. Home Energy Consultant Supervisor: PSCB Transcribe Date/Time: Jan 30 2022 12:55P Dictated by : LORENA KUMAR MD This examination was interpreted and the report reviewed and electronically signed by: LORENA KUMAR MD on Jan 30 2022 12:56PM EST [facility]narrative[facility] Ankle - right AP and Late ral and obliqueOrdered By: Ccf Provider on 01-30-2022 [facility] EGD - THERAPEUTIC, EUS, OR T UBE INTERVENTIONSon 12-21-2021 [facility] GLUCOSE, BLOOD (POC)on 12-21 Glucose [Mass/Vol] 261 mg/dL Abnormal 74 - 99 mg/dL [facility] Glucose [Mass/Vol] 248 mg/dL Abnormal 74 - 99 mg/dL [facility] XR Chest PA and Lateralon IMPRESSION: No acute radiographic abnormality. Home Energy Consultant Supervisor: ABHILASH Transcribe Date/Time: Jun 03 2021 1:12P Dictated by : CAMERON ZAMARRIPA MD This examination was interpreted and the report reviewed and electronically signed by: CAMERON ZAMARRIPA MD on Jun 03 2021 1:16PM [facility] DIVISION OF RADIOLOGY * * *Final [...] the thoracic spine. DIVISION OF RADIOLOGY Provider, [facility] - 06/03/2021 * * *Final Report* * [...] spine. IMPRESSION IMPRESSION: No acute radiographic abnormality. Home Energy Consultant Supervisor: ABHILASH Transcribe Date/Time: Jun 03 2021 1:12P Dictated by : CAMERON ZAMARRIPA MD This examination was interpreted and the report reviewed and electronically signed by: CAMERON ZAMARRIPA MD on Jun 03 2021 1:16PM EST [facility] Radiology Study observation (narrative) [facility] Chest PA and LateralOrder ed By: Ccf Provider on 06-03-2021 [facility] Vital Signs Date Time Vital Sign Value Performing Clinician Facility 07-15-2024 13:16-0500 Diastolic blood pressure 68 mm[Hg] Alicia Blount MD Work Phone: [facility] 07-15-2024 13:16-0500 Systolic blood pressure 132 mm[Hg] Alicia Blount MD Work Phone: [facility] 07-15-2024 12:13-0500 Body mass index (BMI) [Ratio] 28.87 kg/m2 Alicia Blount MD Work Phone: [facility] 07-15-2024 12:13-0500 Body temperature 97.81 [degF] Alicia Blount MD Work Phone: [facility] 07-15-2024 12:13-0500 Body weight 71.6 kg Alicia Blount MD Work Phone: [facility] 07-15-2024 12:13-0500 Heart rate 82 /min Alicia Blount MD Work Phone: [facility] 07-15-2024 12:13-0500 Respiratory rate 16 /min Alicia Blount MD Work Phone: [facility] 07-15-2024 12:13-0500 SaO2% (BldA) [Mass fraction] 97 % Alicia Blount MD Work Phone: [facility] 05-27-2024 11:04-0400 Body mass index (BMI) [Ratio] 29.92 kg/m2 Alicia Blount MD Work Phone: [facility] 05-27-2024 11:04-0400 Body temperature 97.59 [degF] Alicia Blount MD Work Phone: [facility] 05-27-2024 11:04-0400 Body weight 74.2 kg Alicia Blount MD Work Phone: [facility] 05-27-2024 11:04-0400 Diastolic blood pressure 68 mm[Hg] Alicia Blount MD Work Phone: [facility] 05-27-2024 11:04-0400 Heart rate 83 /min Alicia Blount MD Work Phone: [facility] 05-27-2024 11:04-0400 Respiratory rate 16 /min Alicia Blount MD Work Phone: [facility] 05-27-2024 11:04-0400 SaO2% (BldA) [Mass fraction] 97 % Alicia Blount MD Work Phone: [facility] 05-27-2024 11:04-0400 Systolic blood pressure 128 mm[Hg] Alicia Blount MD Work Phone: [facility] 02-17-2024 13:09-0400 Body mass index (BMI) [Ratio] 28.35 kg/m2 Antoinette Agrawal APRN.RESOURCE SPECIALIST Work Phone: [facility] 02-17-2024 13:09-0400 Body temperature 98.01 [degF] Antoinette Agrawal APRN.RESOURCE SPECIALIST Work Phone: [facility] 02-17-2024 13:09-0400 Body weight 70.3 kg Antoinette Agrawal APRN.RESOURCE SPECIALIST Work Phone: [facility] 02-17-2024 13:09-0400 Diastolic blood pressure 72 mm[Hg] Antoinette Agrawal APRN.RESOURCE SPECIALIST Work Phone: [facility] 02-17-2024 13:09-0400 Heart rate 99 /min Antoinette Agrawal APRN.RESOURCE SPECIALIST Work Phone: [facility] 02-17-2024 13:09-0400 Respiratory rate 20 /min Antoinette Agrawal APRN.RESOURCE SPECIALIST Work Phone: [facility] 02-17-2024 13:09-0400 SaO2% (BldA) [Mass fraction] 99 % Antoinette Agrawal MOLDER PIPE COVERING.RESOURCE SPECIALIST Work Phone: [facility] 02-17-2024 13:09-0400 Systolic blood pressure 120 mm[Hg] Antoinette Agrawal MOLDER PIPE COVERING.RESOURCE SPECIALIST Work Phone: [facility] 02-12-2024 10:43-0400 Body mass index (BMI) [Ratio] 29.15 kg/m2 Martin Munguia MOLDER PIPE COVERING.RESOURCE SPECIALIST Work Phone: [facility] 02-12-2024 10:43-0400 Body temperature 97.3 [degF] Martin Munguia MOLDER PIPE COVERING.RESOURCE SPECIALIST Work Phone: [facility] 02-12-2024 10:43-0400 Body weight 72.3 kg Martin Munguia MOLDER PIPE COVERING.RESOURCE SPECIALIST Work Phone: [facility] 02-12-2024 10:43-0400 Diastolic blood pressure 80 mm[Hg] Martin Munguia MOLDER PIPE COVERING.RESOURCE SPECIALIST Work Phone: [facility] 02-12-2024 10:43-0400 Heart rate 82 /min Martin Munguia MOLDER PIPE COVERING.RESOURCE SPECIALIST Work Phone: [facility] 02-12-2024 10:43-0400 Respiratory rate 18 /min Martin Munguia MOLDER PIPE COVERING.RESOURCE SPECIALIST Work Phone: [facility] 02-12-2024 10:43-0400 SaO2% (BldA) [Mass fraction] 96 % Martin Munguia MOLDER PIPE COVERING.RESOURCE SPECIALIST Work Phone: [facility] 02-12-2024 10:43-0400 Systolic blood pressure 132 mm[Hg] Martin Munguia MOLDER PIPE COVERING.RESOURCE SPECIALIST Work Phone: [facility] 01-31-2024 10:10-0400 Diastolic blood pressure 82 mm[Hg] Clarence Berry MOLDER PIPE COVERING.COLLEGE BASKETBALL COACH Work Phone: [facility] Comment on above: bp average 01-31-2024 10:10-0400 Heart rate 84 /min Clarence Berry MOLDER PIPE COVERING.COLLEGE BASKETBALL COACH Work Phone: [facility] 01-31-2024 10:10-0400 Systolic blood pressure 148 mm[Hg] Clarence Berry MOLDER PIPE COVERING.COLLEGE BASKETBALL COACH Work Phone: [facility] Comment on above: bp average 01-31-2024 10:09-0400 Body mass index (BMI) [Ratio] 28.9 kg/m2 Clarence Berry MOLDER PIPE COVERING.COLLEGE BASKETBALL COACH Work Phone: [facility] 01-31-2024 10:09-0400 Body weight 71.67 kg Clarence Berry MOLDER PIPE COVERING.COLLEGE BASKETBALL COACH Work Phone: [facility] 01-31-2024 10:09-0400 Respiratory rate 16 /min Clarencesanta Mcgregors MOLDER PIPE COVERING.COLLEGE BASKETBALL COACH Work Phone: [facility] 12-09-2023 10:38-0400 Body mass index (BMI) [Ratio] 28.63 kg/m2 Antoinette Agrawal APRN.RESOURCE SPECIALIST Work Phone: [facility] 12-09-2023 10:38-0400 Body temperature 97.9 [degF] Antoinette Agrawal APRN.RESOURCE SPECIALIST Work Phone: [facility] 12-09-2023 10:38-0400 Body weight 71 kg Antoinette Agrawal APRN.RESOURCE SPECIALIST Work Phone: [facility] 12-09-2023 10:38-0400 Diastolic blood pressure 74 mm[Hg] Antoinette Agrawal APRN.RESOURCE SPECIALIST Work Phone: [facility] 12-09-2023 10:38-0400 Heart rate 92 /min Antoinette Agrawal APRN.RESOURCE SPECIALIST Work Phone: [facility] 12-09-2023 10:38-0400 Respiratory rate 18 /min Antoinette Agrawal APRN.RESOURCE SPECIALIST Work Phone: [facility] 12-09-2023 10:38-0400 SaO2% (BldA) [Mass fraction] 96 % Antoinette Agrawal APRN.RESOURCE SPECIALIST Work Phone: [facility] 12-09-2023 10:38-0400 Systolic blood pressure 126 mm[Hg] Antoinette Agrawal APRN.CNP Work Phone: [facility] 10-01-2023 11:13-0500 Body height 157.5 cm Alicia Blount MD Work Phone: [facility] 10-01-2023 11:13-0500 Body weight 67.13 kg Alicia Blount MD Work Phone: [facility] 10-01-2023 11:13-0500 Diastolic blood pressure 80 mm[Hg] Alicia Blount MD Work Phone: [facility] 10-01-2023 11:13-0500 Heart rate 74 /min Alicia Blount MD Work Phone: [facility] 10-01-2023 11:13-0500 Respiratory rate 16 /min Alicia Blount MD Work Phone: [facility] 10-01-2023 11:13-0500 Systolic blood pressure 128 mm[Hg] Alicia Blount MD Work Phone: [facility] 07-31-2023 10:34-0500 Body height 157.[address] Alicia Blount Work Phone: [facility] 07-31-2023 10:34-0500 Body mass index (BMI) [Ratio] 25.7 kg/m2 Dr. Alicia Blount Work Phone: [facility] 07-31-2023 10:34-0500 Body temperature 98.7 [degF] Dr. Alicia Blount Work Phone: [facility] 07-31-2023 10:34-0500 Body weight 63.[address] Alicia Blount Work Phone: [facility] 07-31-2023 10:34-0500 Diastolic blood pressure 66 mm[Hg] Dr. Alicia Blount Work Phone: [facility] 07-31-2023 10:34-0500 Heart rate 72 /min Dr. Alicia Blount Work Phone: 9(826)324-070628 [place] [address] 07-31-2023 10:34-0500 Respiratory rate 16 /min Dr. Alicia Blount Work Phone: 8(679)853-108396 [place] [address] 07-31-2023 10:34-0500 SaO2% (BldA) [Mass fraction] 96 % Dr. Alicia Blount Work Phone: 5(602)716-036528 [place] [address] 07-31-2023 10:34-0500 Systolic blood pressure 136 mm[Hg] Dr. Alicia Blount Work Phone: 8(212)838-552096 [place] [address] 07-19-2023 14:02-0500 Body mass index (BMI) [Ratio] 25.9 kg/m2 Dr. Alicia Blount Work Phone: 9(875)421-732596 [place] [address] 07-19-2023 14:02-0500 Body weight 64.[address] Alicia Blount Work Phone: 4(041)750-348196 [place] [address] 07-16-2023 13:49-0500 Body temperature 97.5 [degF] Dr. Alicia Blount Work Phone: 3(854)377-085096 [place] [address] 07-16-2023 13:49-0500 Diastolic blood pressure 76 mm[Hg] Dr. Alicia Blount Work Phone: 1(574)410-909196 [place] [address] 07-16-2023 13:49-0500 Heart rate 65 /min Dr. Alicia Blount Work Phone: 1(415)112-498296 [place] [address] 07-16-2023 13:49-0500 Respiratory rate 15 /min Dr. Alicia Blount Work Phone: 8(815)576-863896 [place] [address] 07-16-2023 13:49-0500 SaO2% (BldA) [Mass fraction] 99 % Dr. Alicia Blount Work Phone: 2(301)119-227296 [place] [address] 07-16-2023 13:49-0500 Systolic blood pressure 116 mm[Hg] Dr. Alicia Blount Work Phone: 0(765)400-641796 [place] [address] 07-02-2023 14:57-0500 Body weight 65.32 kg Clarencesanta Mcgregors MOLDER PIPE COVERING.COLLEGE BASKETBALL COACH Work Phone: [facility] 07-02-2023 14:57-0500 Diastolic blood pressure 78 mm[Hg] Clarence Berry MOLDER PIPE COVERING.COLLEGE BASKETBALL COACH Work Phone: [facility] 07-02-2023 14:57-0500 Heart rate 75 /min Clarence Berry MOLDER PIPE COVERING.COLLEGE BASKETBALL COACH Work Phone: [facility] 07-02-2023 14:57-0500 Respiratory rate 16 /min Clarence Berry MOLDER PIPE COVERING.COLLEGE BASKETBALL COACH Work Phone: [facility] 07-02-2023 14:57-0500 Systolic blood pressure 139 mm[Hg] Clarence Berry MOLDER PIPE COVERING.COLLEGE BASKETBALL COACH Work Phone: [facility] 06-26-2023 11:41-0500 Body temperature 97.6 [degF] Dr. Alicia Blount Work Phone: [facility] 06-26-2023 11:41-0500 Diastolic blood pressure 68 mm[Hg] Dr. Alicia Blount Work Phone: [facility] 06-26-2023 11:41-0500 Heart rate 86 /min Dr. Alicia Blount Work Phone: [facility] 06-26-2023 11:41-0500 Respiratory rate 18 /min Dr. Ailcia Blount Work Phone: [facility] 06-26-2023 11:41-0500 SaO2% (BldA) [Mass fraction] 95 % Dr. Alicia Blount Work Phone: [facility] 06-26-2023 11:41-0500 Systolic blood pressure 136 mm[Hg] Dr. Alicia Blount Work Phone: [facility] 06-20-2023 11:36-0500 Body weight 64.[address] Alicia Blount Work Phone: [facility] 06-19-2023 12:49-0500 Body temperature 96.9 [degF] Dr. Alicia Blount Work Phone: 1(224)570-016496 [place] [address] 06-19-2023 12:49-0500 Diastolic blood pressure 68 mm[Hg] Dr. Alicia Blount Work Phone: 1(597)906-971696 [place] [address] 06-19-2023 12:49-0500 Heart rate 82 /min Dr. Alicia Blount Work Phone: 1(112)789-035196 [place] [address] 06-19-2023 12:49-0500 Respiratory rate 17 /min Dr. Alicia Blount Work Phone: 0(778)255-454896 [place] [address] 06-19-2023 12:49-0500 SaO2% (BldA) [Mass fraction] 99 % Dr. Alicia Blount Work Phone: 2(086)332-639096 [place] [address] 06-19-2023 12:49-0500 Systolic blood pressure 122 mm[Hg] Dr. Alicia Blount Work Phone: 7(352)714-072196 [place] [address] 06-19-2023 10:19-0500 Body mass index (BMI) [Ratio] 26.2 kg/m2 Dr. Alicia Blount Work Phone: 0(464)187-844896 [place] [address] 06-19-2023 10:19-0500 Body weight 64.[address] Alicia Blount Work Phone: 7(844)057-615396 [place] [address] 06-18-2023 10:00-0500 Heart rate 72 /min Dr. Alicia Blount Work Phone: 1(307)734-135596 [place] [address] 06-17-2023 14:58-0500 Body temperature 97.3 [degF] Dr. Alicia Blount Work Phone: 6(114)143-134796 [place] [address] 06-17-2023 14:58-0500 Diastolic blood pressure 58 mm[Hg] Dr. Alicia Blount Work Phone: 4(254)085-997896 [place] [address] 06-17-2023 14:58-0500 Respiratory rate 16 /min Dr. Alicia Blount Work Phone: 3(776)744-931296 [place] [address] 06-17-2023 14:58-0500 SaO2% (BldA) [Mass fraction] 96 % Dr. Alicia Blount Work Phone: 8(187)870-524896 [place] [address] 06-17-2023 14:58-0500 Systolic blood pressure 127 mm[Hg] Dr. Alicia Blount Work Phone: 1(160)722-934996 [place] [address] 06-15-2023 14:33-0400 Body height 157.[address] Alicia Blount Work Phone: 0(566)393-745996 [place] [address] 06-15-2023 14:33-0400 Body weight 66.[address] Alicia Blount Work Phone: 0(390)590-445396 [place] [address] 06-13-2023 14:58-0400 Body mass index (BMI) [Ratio] 26.9 kg/m2 Dr. Alicia Blount Work Phone: 7(751)854-012696 [place] [address] 06-13-2023 12:00-0400 Body temperature 98.2 [degF] Dr. Alicia Blount Work Phone: 5(491)463-126796 [place] [address] 06-13-2023 12:00-0400 Diastolic blood pressure 75 mm[Hg] Dr. Alicia Blount Work Phone: 3(403)925-524596 [place] [address] 06-13-2023 12:00-0400 Heart rate 92 /min Dr. Alicia Blount Work Phone: 6(844)331-525196 [place] [address] 06-13-2023 12:00-0400 Respiratory rate 18 /min Dr. Alicia Blount Work Phone: 4(236)432-440796 [place] [address] 06-13-2023 12:00-0400 SaO2% (BldA) [Mass fraction] 100 % Dr. Alicia Blount Work Phone: 6(119)779-880696 [place] [address] 06-13-2023 12:00-0400 Systolic blood pressure 131 mm[Hg] Dr. Alicia Blount Work Phone: 3(546)960-350796 [place] [address] 06-11-2023 10:50-0400 Body weight 65.[address] Alicia Blount Work Phone: 0(260)327-117196 [place] [address] 06-10-2023 21:53-0400 Body mass index (BMI) [Ratio] 26.4 kg/m2 Dr. Alicia Blount Work Phone: 9(532)733-452196 [place] [address] 06-10-2023 19:49-0400 Body temperature 98.4 [degF] Dr. Alicia Blount Work Phone: 3(805)658-006696 [place] [address] 06-10-2023 19:49-0400 Diastolic blood pressure 61 mm[Hg] Dr. Alicia Blount Work Phone: 0(750)631-706796 [place] [address] 06-10-2023 19:49-0400 Heart rate 104 /min Dr. Alicia Blount Work Phone: 2(959)634-023996 [place] [address] 06-10-2023 19:49-0400 Respiratory rate 19 /min Dr. Alicia Blount Work Phone: 6(869)557-342396 [place] [address] 06-10-2023 19:49-0400 SaO2% (BldA) [Mass fraction] 95 % Dr. Alicia Blount Work Phone: 0(208)158-766596 [place] [address] 06-10-2023 19:49-0400 Systolic blood pressure 126 mm[Hg] Dr. Alicia Blount Work Phone: 8(935)910-158996 [place] [address] 06-10-2023 16:59-0400 Body height 157.[address] Alicia Blount Work Phone: 0(577)449-492596 [place] [address] 06-10-2023 16:59-0400 Body mass index (BMI) [Ratio] 27.1 kg/m2 Dr. Alicia Blount Work Phone: 4(715)727-043896 [place] [address] 06-10-2023 16:59-0400 Body weight 67.[address] Alicia Blount Work Phone: 6(726)809-993196 [place] [address] 06-07-2023 13:28-0400 Body mass index (BMI) [Ratio] 26.1 kg/m2 Dr. Alicia Blount Work Phone: 1(502)677-488296 [place] [address] 06-07-2023 13:28-0400 Body temperature 97.8 [degF] Dr. Alicia Blount Work Phone: [facility] 06-07-2023 13:28-0400 Body weight 64.[address] Alicia Blount Work Phone: [facility] 06-07-2023 13:28-0400 Diastolic blood pressure 80 mm[Hg] Dr. Alicia Blount Work Phone: [facility] 06-07-2023 13:28-0400 Heart rate 87 /min Dr. Alicia Blount Work Phone: [facility] 06-07-2023 13:28-0400 Respiratory rate 17 /min Dr. Alicia Blount Work Phone: [facility] 06-07-2023 13:28-0400 SaO2% (BldA) [Mass fraction] 95 % Dr. Alicia Blount Work Phone: [facility] 06-07-2023 13:28-0400 Systolic blood pressure 136 mm[Hg] Dr. Alicia Blount Work Phone: [facility] 06-06-2023 12:30-0400 Body temperature 98.2 [degF] Erik Underwood MD Work Phone: [facility] 06-06-2023 12:30-0400 Diastolic blood pressure 73 mm[Hg] Erik Underwood MD Work Phone: [facility] 06-06-2023 12:30-0400 Heart rate 74 /min Erik Underwood MD Work Phone: [facility] 06-06-2023 12:30-0400 Respiratory rate 15 /min Erik Underwood MD Work Phone: [facility] 06-06-2023 12:30-0400 SaO2% (BldA) [Mass fraction] 97 % Erik Underwood MD Work Phone: [facility] 06-06-2023 12:30-0400 Systolic blood pressure 156 mm[Hg] Erik Underwood MD Work Phone: [facility] 06-06-2023 10:58-0400 Body height 157.5 cm Erik Underwood MD Work Phone: [facility] 06-06-2023 10:58-0400 Body weight 65.77 kg Erik Underwood MD Work Phone: [facility] 06-04-2023 09:45-0400 Body height 157.5 cm Radha Balderrama MD Work Phone: [facility] 06-04-2023 09:45-0400 Body temperature 97.81 [degF] Radha Balderrama MD Work Phone: [facility] 06-04-2023 09:45-0400 Body weight 66.13 kg Radha Balderrama MD Work Phone: [facility] 06-04-2023 09:45-0400 Diastolic blood pressure 78 mm[Hg] Radha Balderrama MD Work Phone: [facility] 06-04-2023 09:45-0400 Heart rate 83 /min Radha Balderrama MD Work Phone: [facility] 06-04-2023 09:45-0400 SaO2% (BldA) [Mass fraction] 94 % Radha Balderrama MD Work Phone: [facility] 06-04-2023 09:45-0400 Systolic blood pressure 122 mm[Hg] Radha Balderrama MD Work Phone: [facility] 05-31-2023 09:52-0400 Body weight 65.77 kg Clarence Berry [employer] Work Phone: [facility] 05-31-2023 09:52-0400 Diastolic blood pressure 76 mm[Hg] Clarence Berry [employer]LE[employer]ASK[employer]ACH Work Phone: [facility] 05-31-2023 09:52-0400 Heart rate 78 /min Clarence Berry [employer]LE[employer]ACH Work Phone: [facility] 05-31-2023 09:52-0400 Respiratory rate 16 /min Clarence Berry [employer].COLLE[employer] BASKET[employer] COACH Work Phone: [facility] 05-31-2023 09:52-0400 Systolic blood pressure 133 mm[Hg] Clarence Berry [employer].COLLE[employer] BASKET[employer] COACH Work Phone: [facility] 04-08-2023 12:38-0400 Body temperature 98.29 [degF] Navya Older [employer]OVERING.RESOURCE SPECIALIST Work Phone: [facility] 04-08-2023 12:38-0400 Body weight 66.59 kg Navya Older [employer].RESOURCE SPECIALIST Work Phone: [facility] 04-08-2023 12:38-0400 Diastolic blood pressure 72 mm[Hg] Navya Older [employer].RESOURCE SPECIALIST Work Phone: [facility] 04-08-2023 12:38-0400 Heart rate 80 /min Navya Older [employer].RESOURCE SPECIALIST Work Phone: [facility] 04-08-2023 12:38-0400 Respiratory rate 22 /min Navya Older [employer].RESOURCE SPECIALIST Work Phone: [facility] 04-08-2023 12:38-0400 SaO2% (BldA) [Mass fraction] 98 % Navya Older [employer].RESOURCE SPECIALIST Work Phone: [facility] 04-08-2023 12:38-0400 Systolic blood pressure 138 mm[Hg] Navya Older [employer].RESOURCE SPECIALIST Work Phone: [facility] 03-07-2023 07:56-0400 Body mass index (BMI) [Ratio] 26.3 kg/m2 Dr. Alicia Blount Work Phone: [facility] 03-07-2023 07:56-0400 Body temperature 97.8 [degF] Dr. Alicia Blount Work Phone: [facility] 03-07-2023 07:56-0400 Body weight 65.[address] Alicia Blount Work Phone: [facility] 03-07-2023 07:56-0400 Diastolic blood pressure 84 mm[Hg] Dr. Alicia Blount Work Phone: 8(061)536-039528 [place] [address] 03-07-2023 07:56-0400 Heart rate 80 /min Dr. Alicia Blount Work Phone: 4(009)193-341928 [place] [address] 03-07-2023 07:56-0400 Respiratory rate 18 /min Dr. Alicia Blount Work Phone: 3(970)032-538296 [place] [address] 03-07-2023 07:56-0400 SaO2% (BldA) [Mass fraction] 97 % Dr. Alicia Blount Work Phone: 6(321)542-335196 [place] [address] 03-07-2023 07:56-0400 Systolic blood pressure 136 mm[Hg] Dr. Alicia Bolunt Work Phone: 7(525)545-784696 [place] [address] 03-05-2023 10:08-0400 Body mass index (BMI) [Ratio] 27.4 kg/m2 Dr. Alicia Blount Work Phone: 3(907)814-475196 [place] [address] 03-05-2023 10:08-0400 Body temperature 98 [degF] Dr. Alicia Blount Work Phone: 7(304)010-684696 [place] [address] 03-05-2023 10:08-0400 Body weight 68.[address] Alicia Blount Work Phone: 5(710)716-609996 [place] [address] 03-05-2023 10:08-0400 Diastolic blood pressure 80 mm[Hg] Dr. Alicia Blount Work Phone: 5(617)206-270428 [place] [address] 03-05-2023 10:08-0400 Heart rate 70 /min Dr. Alicia Blount Work Phone: 5(126)389-088228 [place] [address] 03-05-2023 10:08-0400 Respiratory rate 16 /min Dr. Alicia Blount Work Phone: 1(664)239-470628 [place] [address] 03-05-2023 10:08-0400 SaO2% (BldA) [Mass fraction] 96 % Dr. Alicia Blount Work Phone: 3(502)991-980796 [place] [address] 03-05-2023 10:08-0400 Systolic blood pressure 146 mm[Hg] Dr. Alicia Blount Work Phone: [facility] 10-17-2022 15:05-0500 Body weight 71.67 kg Clarence Berry [employer]LE[employer] COACH Work Phone: [facility] 10-17-2022 15:05-0500 Diastolic blood pressure 80 mm[Hg] Clarence Berry [employer]LE[employer] COACH Work Phone: [facility] 10-17-2022 15:05-0500 Heart rate 68 /min Clarence Berry [employer].COLLE[employer]ASK[employer] COACH Work Phone: [facility] 10-17-2022 15:05-0500 Respiratory rate 16 /min Clarence Berry [employer]LE[employer]ASKET[employer] COACH Work Phone: [facility] 10-17-2022 15:05-0500 SaO2% (BldA) [Mass fraction] 98 % Clarence Berry [employer].COLLEGE BASKETB[employer] COACH Work Phone: [facility] 10-17-2022 15:05-0500 Systolic blood pressure 130 mm[Hg] Clarence Berry [employer]ING.COLLE[employer] BASKET[employer] COACH Work Phone: [facility] 10-10-2022 10:10-0500 Body weight 71.67 kg Clarence Berry [employer]ING.COLLE[employer] BASKET[employer] COACH Work Phone: [facility] 10-10-2022 10:10-0500 Diastolic blood pressure 88 mm[Hg] Clarence Berry [employer]ING.COLLE[employer] BASKET[employer] COACH Work Phone: [facility] 10-10-2022 10:10-0500 Heart rate 72 /min Clarence Berry [employer] C[employer]ING.COLLE[employer]ET[employer] COACH Work Phone: [facility] 10-10-2022 10:10-0500 Respiratory rate 16 /min Clarence Berry [employer]ING.COLLE[employer]ASKET[employer] COACH Work Phone: [facility] 10-10-2022 10:10-0500 SaO2% (BldA) [Mass fraction] 98 % Clarence Berry [employer]ING.COLLE[employer]ASKET[employer] COACH Work Phone: [facility] 10-10-2022 10:10-0500 Systolic blood pressure 136 mm[Hg] Clarence Berry [employer]ING.COLLE[employer]ASK[employer] COACH Work Phone: [facility] 09-30-2022 09:29-0500 Body weight 71.67 kg Alicia Blount MD Work Phone: [facility] 09-30-2022 09:29-0500 Diastolic blood pressure 82 mm[Hg] Alicia Blount MD Work Phone: [facility] 09-30-2022 09:29-0500 Heart rate 84 /min Alicia Blount MD Work Phone: [facility] 09-30-2022 09:29-0500 Respiratory rate 16 /min Alicia Blount MD Work Phone: [facility] 09-30-2022 09:29-0500 Systolic blood pressure 158 mm[Hg] Alicia Blount MD Work Phone: [facility] 08-15-2022 13:00-0500 Body height 157.[address] Alicia Blount Work Phone: [facility] 08-15-2022 13:00-0500 Body weight 71.[address] Alicia Blount Work Phone: [facility] 08-15-2022 13:00-0500 Heart rate 80 /min Dr. Alicia Blount Work Phone: [facility] 08-15-2022 13:00-0500 Inhaled oxygen concentration 21 % Dr. Alicia Blount Work Phone: [facility] 08-15-2022 13:00-0500 SaO2% (BldA) [Mass fraction] 97 % Dr. Alicia Blount Work Phone: [facility] 07-26-2022 13:12-0500 Body mass index (BMI) [Ratio] 28.3 kg/m2 Dr. Alicia Blount Work Phone: [facility] 07-26-2022 13:12-0500 Body temperature 98.4 [degF] Dr. Alicia Blount Work Phone: [facility] 07-26-2022 13:12-0500 Body weight 71.[address] Alicia Blount Work Phone: 6(495)410-734596 [place] [address] 07-26-2022 13:12-0500 Diastolic blood pressure 91 mm[Hg] Dr. Alicia Blount Work Phone: 4(432)716-940596 [place] [address] 07-26-2022 13:12-0500 Heart rate 71 /min Dr. Alicia Blount Work Phone: 3(453)511-870696 [place] [address] 07-26-2022 13:12-0500 Respiratory rate 18 /min Dr. Alicia Blount Work Phone: 4(828)373-474496 [place] [address] 07-26-2022 13:12-0500 SaO2% (BldA) [Mass fraction] 97 % Dr. Alicia Blount Work Phone: 1(038)590-482996 [place] [address] 07-26-2022 13:12-0500 Systolic blood pressure 186 mm[Hg] Dr. Alicia Blount Work Phone: 6(546)911-748696 [place] [address] 05-26-2022 08:29-0400 Body mass index (BMI) [Ratio] 29 kg/m2 Dr. Alicia Blount Work Phone: 9(629)429-123796 [place] [address] 05-26-2022 08:29-0400 Body temperature 97.6 [degF] Dr. Alicia Blount Work Phone: 7(411)335-909096 [place] [address] 05-26-2022 08:29-0400 Body weight 72.[address] Alicia Blount Work Phone: 3(902)962-870796 [place] [address] 05-26-2022 08:29-0400 Diastolic blood pressure 84 mm[Hg] Dr. Alicia Blount Work Phone: 7(438)323-833596 [place] [address] 05-26-2022 08:29-0400 Heart rate 75 /min Dr. Alicia Blount Work Phone: 6(848)288-792396 [place] [address] 05-26-2022 08:29-0400 Respiratory rate 18 /min Dr. Alicia Blount Work Phone: 1(165)071-776396 [place] [address] 05-26-2022 08:29-0400 SaO2% (BldA) [Mass fraction] 94 % Dr. Alicia Blount Work Phone: [facility] 05-26-2022 08:29-0400 Systolic blood pressure 151 mm[Hg] Dr. Alicia Blount Work Phone: [facility] 05-16-2022 10:18-0400 Body temperature 97.2 [degF] Kaci Praisler-Wood [employer]OVERING.RESOURCE SPECIALIST Work Phone: [facility] 05-16-2022 10:18-0400 Body weight 71.22 kg Kaci Praisler-Wood [employer]ING.RESOURCE SPECIALIST Work Phone: [facility] 05-16-2022 10:18-0400 Diastolic blood pressure 76 mm[Hg] Kaci Praisler-Wood [employer] C[employer]ING.RESOURCE SPECIALIST Work Phone: [facility] 05-16-2022 10:18-0400 Heart rate 83 /min Kaci Praisler-Wood [employer]ING.RESOURCE SPECIALIST Work Phone: [facility] 05-16-2022 10:18-0400 Respiratory rate 18 /min Kaci Praisler-Wood [employer] P[employer] COVERING.RESOURCE SPECIALIST Work Phone: [facility] 05-16-2022 10:18-0400 SaO2% (BldA) [Mass fraction] 96 % Kaci Praisler-Wood [employer] COVERING.RESOURCE SPECIALIST Work Phone: [facility] 05-16-2022 10:18-0400 Systolic blood pressure 140 mm[Hg] Kaci Praisler-Wood [employer] COVERING.RESOURCE SPECIALIST Work Phone: [facility] 05-02-2022 11:51-0400 Body weight 71.67 kg Clarence Berry [employer]OVERING.[employer]LE[employer] B[employer]ET[employer] COACH Work Phone: [facility] 05-02-2022 11:51-0400 Diastolic blood pressure 82 mm[Hg] Clarence Berry [employer].COLLE[employer] BASKET[employer] COACH Work Phone: [facility] 05-02-2022 11:51-0400 Heart rate 88 /min Clarence Berry [employer] COVERING.COLLE[employer] BASKETBALL COACH Work Phone: [facility] 05-02-2022 11:51-0400 Respiratory rate 16 /min Clarence Berry [employer] COVERING.COLLE[employer] BASKETBALL COACH Work Phone: [facility] 05-02-2022 11:51-0400 SaO2% (BldA) [Mass fraction] 96 % Clarence Jamal [employer]ING.COLLE[employer] BASKETB[employer] COACH Work Phone: [facility] 05-02-2022 11:51-0400 Systolic blood pressure 132 mm[Hg] Clarence Berry [employer]LE[employer]ASK[employer] COACH Work Phone: [facility] 04-25-2022 11:16-0400 Body mass index (BMI) [Ratio] 28.7 kg/m2 Dr. Alicia Blount Work Phone: [facility] Work Phone: 04-25-2022 11:16-0400 Body temperature 97.4 [degF] Dr. Alicia Blount Work Phone: [facility] Work Phone: 04-25-2022 11:16-0400 Body weight 71.[address] Alicia Blount Work Phone: [facility] Work Phone: 04-25-2022 11:16-0400 Diastolic blood pressure 82 mm[Hg] Dr. Alicia Blount Work Phone: [facility] Work Phone: 04-25-2022 11:16-0400 Heart rate 80 /min Dr. Alicia Blount Work Phone: [facility] Work Phone: 04-25-2022 11:16-0400 Respiratory rate 16 /min Dr. Alicia Blount Work Phone: [facility] Work Phone: 04-25-2022 11:16-0400 SaO2% (BldA) [Mass fraction] 97 % Dr. Alicia Blount Work Phone: [facility] Work Phone: 04-25-2022 11:16-0400 Systolic blood pressure 138 mm[Hg] Dr. Alicia Blount Work Phone: [facility] Work Phone: 03-31-2022 14:17-0400 Body weight 70.31 kg Alicia Blount MD Work Phone: [facility] 03-31-2022 14:17-0400 Diastolic blood pressure 78 mm[Hg] Alicia Blount MD Work Phone: [facility] 03-31-2022 14:17-0400 Heart rate 76 /min Alicia Blount MD Work Phone: [facility] 03-31-2022 14:17-0400 SaO2% (BldA) [Mass fraction] 95 % Alicia Blount MD Work Phone: [facility] 03-31-2022 14:17-0400 Systolic blood pressure 128 mm[Hg] Alicia Blount MD Work Phone: [facility] 01-30-2022 12:25-0400 Body temperature 98.29 [degF] Anu Bogner PA-C Work Phone: [facility] 01-30-2022 12:25-0400 Body weight 70.67 kg Anu Bogner PA-C Work Phone: [facility] 01-30-2022 12:25-0400 Diastolic blood pressure 80 mm[Hg] Anu Bogner PA-C Work Phone: [facility] 01-30-2022 12:25-0400 Heart rate 80 /min Anu Bogner PA-C Work Phone: [facility] 01-30-2022 12:25-0400 Respiratory rate 16 /min Anu Bogner PA-C Work Phone: [facility] 01-30-2022 12:25-0400 SaO2% (BldA) [Mass fraction] 97 % Anu JAQUEZ-C Work Phone: [facility] 01-30-2022 12:25-0400 Systolic blood pressure 122 mm[Hg] Anu Pablo PA-C Work Phone: [facility] 12-21-2021 09:00-0400 Diastolic blood pressure 82 mm[Hg] Erik Underwood MD Work Phone: [facility] 12-21-2021 09:00-0400 Heart rate 62 /min Erik Underwood MD Work Phone: [facility] 12-21-2021 09:00-0400 Respiratory rate 14 /min Erik Underwood MD Work Phone: [facility] 12-21-2021 09:00-0400 SaO2% (BldA) [Mass fraction] 96 % Erik Underwood MD Work Phone: [facility] 12-21-2021 09:00-0400 Systolic blood pressure 160 mm[Hg] Erik Underwood MD Work Phone: [facility] 12-21-2021 08:22-0400 Body temperature 97.7 [degF] Erik Underwood MD Work Phone: [facility] 12-21-2021 07:07-0400 Body height 157.5 cm Erik Underwood MD Work Phone: [facility] 12-21-2021 07:07-0400 Body weight 67.59 kg Erik Underwood MD Work Phone: [facility] 11-22-2021 13:09-0400 Body weight 67.59 kg Alicia Blount MD Work Phone: [facility] 11-22-2021 13:09-0400 Diastolic blood pressure 62 mm[Hg] Alicia Blount MD Work Phone: [facility] 11-22-2021 13:09-0400 Heart rate 82 /min Alicia Blount MD Work Phone: [facility] 11-22-2021 13:09-0400 Systolic blood pressure 122 mm[Hg] Alicia Blount MD Work Phone: [facility] Encounters Encounter Date Encounter Type Care Provider Facility Start: 05-29-2025 End: 05-29-2025 ambulatory Genny Munguia Facility:[facility] Start: 05-27-2025 End: 05-27-2025 ambulatory Violette Florencia Facility:[facility] Start: 05-21-2025 End: 05-21-2025 ambulatory Violette Don [facility] Start: 05-07-[facility] Start: 05-05-2025 End: 05-05-2025 ambulatory Liliya Garcia [facility] Start: 04-28-[facility] Start: 04-20-2025 End: 04-20-2025 [facility] Start: 04-08-2025 Encounter for other preprocedural examination Violette Don [facility] Start: 04-07-2025 ambulatory Nacho costa Jay Facili ty:[facility] Start: 04-07-2025 End: 04-09-2025 Evaluation and management of inpatient Nacho costa Jay Facility:[facility] Start: 04-02-2025 ambulatory Anna Martinez cility:[facility] Start: 04-01-2025 End: 04-01-2025 ambulatory [facility] Facility:[facility] Start: 03-31-2025 ambulatory [facility] Facility: [facility] Start: 03-26-2025 End: 03-26-2025 ambulatory [facility] Start: 03-26-2025 End: 03-26-2025 Patient encounter procedure Selam Shepard [facility] Comment on above: Population Health Na vigation Outreach ([place] ) Start: 03-19-2025 End: 03-19-2025 ambulatory Hernandojaswinder [facility] Start: 02-26-2025 End: 02-26-2025 ambulatory Alicia Blount Facility:[facility] Start: 02-23-2025 End: 02-23-2025 ambulatory Selam Besancon [facility] Start: 02-23-2025 End: 02-23-2025 Patient encounter procedure [facility] Comment on above: Population Health Na vigation Outreach ([place] ) Start: 02-19-2025 End: 02-19-2025 ambulatory Alicia Blount Facility:[facility] Start: 02-17-2025 End: 02-17-2025 ambulatory Hernando Pandya Facility:[facility] Start: 02-04-2025 End: 02-04-2025 ambulatory Alicia Blount Facility:[facility] Start: 01-28-2025 ambulatory Amaury JAQUEZ Facilit y:[facility] Start: 01-22-2025 End: 01-22-2025 ambulatory Selam [facility] Start: 01-22-2025 End: 01-22-2025 Patient encounter procedure Selam [facility] Comment on above: Population Health Na vigation Outreach ([place] ) Start: 01-15-2025 End: 01-15-2025 ambulatory Hernando Pandya Facility:[facility] Start: 01-01-2025 End: 01-01-2025 ambulatory Michelle Zuleta Facility:[facility] Start: 12-23-2024 End: 12-23-2024 ambulatory Selam [facility] Start: 12-23-2024 End: 12-23-2024 Patient encounter procedure [facility] Comment on above: Population Health Na vigation Outreach ([place] ) Start: 12-18-2024 End: 12-19-2024 Telephone encounter [...] Start: 12-15-2024 End: 12-15-2024 ambulatory Amaury JAQUEZ Facility:[facility] Start: 12-12-2024 End: 12-12-2024 ambulatory Amaury JAQUEZ Facility:[facility] Start: 12-10-2024 End: 12-11-2024 Telephone encounter Alicia Blount MD Work Phone: [facility] Comment on above: Delay of care- OT WC [facility] Start: 12-08-2024 End: 12-08-2024 ambulatory Aniket Guo Facility:[facility] Start: 11-20-2024 End: 11-20-2024 ambulatory Selam Shepard [facility] Start: 11-20-2024 End: 11-20-2024 Patient encounter procedure Selam Shepard [facility] Comment on above: [facility] Start: 11-19-2024 End: 11-20-2024 Telephone encounter Alicia Blount MD Work Phone: [facility] Comment on above: Occupatioal Therapy Updated Plan of Care Start: 11-12-2024 ambulatory Alicia D [place] Facilit y:[facility] Start: 11-11-2024 End: 11-11-2024 ambulatory Alicia D [place] [facility] [facility] [place] Start: 11-03-2024 End: 11-03-2024 ambulatory Alicia D Talampas Facility:[facility] Start: 11-03-2024 End: 11-03-2024 ambulatory Alicia D Talampas Facility:[facility] Start: 10-27-2024 End: 10-29-2024 Telephone encounter Alicia Blount MD Work Phone: [facility] [place] Comment on above: [facility] HH OT updated PO C Medication Problem Start: 10-25-2024 End: 10-25-2024 ambulatory Gabrielle Murdock RN NURSE STAFF [employer] Start: 10-25-2024 End: 10-25-2024 Follow-up encounter Gabrielle Murdock RN NURSE STAFF [employer] OFFICER Comment on above: Follow Up Start: 10-25-2024 End: 12-24-2024 Telephone encounter Ligia Schilling DO Work Phone: [facility] Start: 10-24-2024 End: 10-27-2024 Telephone encounter Alicia Blount MD Work Phone: [facility] [place] Comment on above: Patient Update Start: 10-23-2024 End: 10-28-2024 Telephone encounter Alicia Blount MD Work Phone: [facility] [place] Comment on above: plan of care Start: 10-20-2024 End: 10-21-2024 Telephone encounter Alicia Blount MD Work Phone: [facility] [place] Comment on above: Home Health Point of Care Results Start: 10-20-2024 End: 10-20-2024 ambulatory Alicia D Talampas Facility:[facility] Start: 10-17-2024 End: 10-17-2024 Telephone encounter Alicia Blount MD Work Phone: [facility] [place] Comment on above: Follow HH Start: 10-07-2024 ambulatory Alicia D Talampas Facilit y:[facility] Start: 09-21-2024 ambulatory Alicia D Talampas Facilit y:B[facility] Start: 09-21-2024 End: 10-17-2024 Evaluation and management of inpatient Alicia D Talampas Facility:[facility] Start: 09-05-2024 ambulatory Alicia D Talampas Facilit y:B[facility] Start: 09-05-2024 ambulatory Alicia D Talampas Facilit y:[facility] Start: 08-29-2024 ambulatory Nikky Pastor Facility:[facility] Start: 08-29-2024 End: 09-21-2024 Evaluation and management of inpatient Alicia D Talampas Facility:[facility] Start: 08-27-2024 ambulatory Alicia D Talampas Facilit y:B[facility] Start: 08-25-2024 ambulatory Alicia D Talampas Facilit y:BMS Start: 08-25-2024 ambulatory Alicia D Talampas Facilit y:BMS Start: 08-25-2024 End: 08-29-2024 Evaluation and management of inpatient Alicia D Talampas Facility:[facility] Start: 08-13-2024 End: 08-13-2024 ambulatory Alicia D Talampas Facility:[facility] Start: 08-12-2024 End: 08-12-2024 ambulatory Alicia D Talampas Facility:[facility] Start: 08-07-2024 End: 08-08-2024 ambulatory Alicia D Talampas Facility:[facility] Start: 08-07-2024 End: 08-25-2024 Evaluation and management of inpatient Alicia D Talampas Facility:[facility] Start: 08-03-2024 ambulatory Alicia D Talampas Facilit y:BMS Start: 08-03-2024 End: 08-07-2024 Evaluation and management of inpatient Alicia D Talampas Facility:[facility] Start: 08-03-2024 End: 08-03-2024 ambulatory Alicia D Talampas Facility:[facility] Start: 08-01-2024 End: 08-01-2024 Patient Outreach Ellen Gonzalez RN Work Phone: [employer] Comment on above: Weekly phone contact (Recurring) for Transitional Care Management Start: 07-15-2024 End: 07-15-2024 ambulatory ALICIA D TALAMPAS Facility:[facility] Start: 07-15-2024 End: 07-15-2024 Transitional care manage srvc 7 day discharge Alicia Blount MD Work Phone: [facility] [place] Comment on above: Syncope, unspecified syncope type (Primary Dx); Diabetes 1.5, managed as type 1 (HCC); Recurrent bronchospasm; Bronchiectasis without complication (HCC); Chronic cough Start: 07-14-2024 End: 07-14-2024 Patient Outreach Ellen Gonzalez RN Work Phone: [employer] Comment on above: Initial phone contac t for Transitional Care Management Start: 07-11-2024 ambulatory Alicia D Talampas Facilit y:B[facility] Start: 07-10-2024 ambulatory Alicia D Talampas Facilit y:BMS Start: 07-10-2024 End: 07-12-2024 Evaluation and management of inpatient Alicia Rhonda Jama Facility:[facility] Start: 07-01-2024 End: 07-01-2024 ambulatory Alicia Rhonda Hyattampshanika Facility:[facility] Start: 06-23-2024 End: 06-23-2024 ambulatory Alicia D Prashanthampshanika Facility:[facility] Start: 06-16-2024 End: 06-16-2024 ambulatory Alicia Rhonda Blount Facility:[facility] Start: 05-27-2024 End: 05-27-2024 Office outpatient visit 25 minutes Alicia Blount MD Work Phone: [facility] [place] Comment on above: Anxiety (Primary Dx) ; Essential hypertension; Diabetes 1.5, managed as type 1 (HCC); Stress incontinence; Viral syndrome; Right leg swelling Start: 05-27-2024 End: 05-27-2024 ambulatory ALICIA Rhonda HYATTDEEPAK Facility:[facility] Start: 05-01-2024 End: 05-01-2024 ambulatory Alicia Blount MD Work Phone: [facility] [place] Comment on above: Headache Start: 04-28-2024 End: 04-28-2024 Telephone encounter Nurse Card Admin [facility] Work Phone: Cardiology Comment on above: Stress Test Instruct ions for 05/05/24 Start: 03-18-2024 Refill Alicia kirkpatrick MD Work Phone: [facility] Comment on above: Refill Request Start: 03-04-2024 Telephone encounter Nurse Card Admin [facility] Work Phone: Cardiology Comment on above: Stress Test Instruct ions for 03/10/24 Start: 02-17-2024 End: 02-17-2024 Patient encounter procedure Antoinette Agrawal APRN.CNP Work Phone: [facility] Comment on above: SOB (shortness of br eath) (Primary Dx) Start: 02-12-2024 End: 02-12-2024 Subsequent hospital visit by physician Xr [facility] [place] Work Phone: Radiology Comment on above: Acute cough [R05.1] Start: 02-12-2024 End: 02-12-2024 Patient encounter procedure Martin Munguia MOLDER PIPE COVERING.RESOURCE SPECIALIST Work Phone: [facility] Comment on above: Sinobronchitis (Prim jessica Dx); Acute cough Start: 01-31-2024 Telephone encounter Clarence mccormack MOLDER PIPE COVERING.COLLEGE BASKETBALL COACH Work Phone: Radiology Comment on above: Orders Start: 01-31-2024 End: 01-31-2024 Office outpatient visit 15 minutes Clarence Berry MOLDER PIPE COVERING.COLLEGE BASKETBALL COACH Work Phone: [facility] [place] Comment on [...] Request Start: 12-11-2023 Telephone encounter Simran wells MOLDER PIPE COVERING.RESOURCE SPECIALIST Work Phone: [facility] Comment on above: Results Start: 12-09-2023 End: 12-09-2023 Patient encounter procedure Antoinette Agrawal MOLDER PIPE COVERING.RESOURCE SPECIALIST Work Phone: [facility] Comment on above: Urinary frequency [...] Alicia rothman MD Work Phone: [facility] [place] Comment on above: Orders Start: 08-10-2023 End: 08-10-[address] Alicia Blount Work Phone: [facility] Work Phone: Start: 08-10-2023 End: 08-10-[address] Alicia Blount Work Phone: [facility] Work Phone: Start: 07-31-2023 End: 07-31-[address] Alicia Blount Work Phone: [facility] Endocrinology Work Phone: Start: 07-19-2023 Refill Alicia kirkpatrick MD Work Phone: [facility] [place] Comment on above: Refill Request Start: 07-19-2023 End: 07-19-[address] Alicia Blount Work Phone: [facility]opa[facility] Work Phone: Start: 07-16-2023 End: 07-16-[address] Alicia Blount Work Phone: [facility] Neurology Work Phone: Start: 07-02-2023 End: 07-02-2023 Office outpatient visit 25 minutes Clarence Berry APRN.COLLEGE BASKETBALL COACH Work Phone: [facility] [place] Comment on above: Debility (Primary Dx ); Diabetes 1.5, managed as type 1 (HCC); Sepsis, due to unspecified organism, unspecified whether acute organ dysfunction present (HCC); Pain in left ta Start: 06-28-2023 Telephone encounter Alicia rothman MD Work Phone: [facility] [place] Comment on above: FYI-PT plan of care Start: 06-27-2023 Telephone encounter Alicia rothman MD Work Phone: [facility] [place] Comment on above: Home Health Update Start: 06-15-2023 End: 06-15-[address] Alicia Blount Work Phone: [facility] Work Phone: Start: 06-15-2023 End: 06-15-[address] Alicia Blount Work Phone: [facility] Work Phone: Start: 06-13-2023 End: 06-13-[address] Alicia Blount Work Phone: [facility] Work Phone: Start: 06-13-2023 End: 06-13-[address] Alicia Blount Work Phone: [facility]-Cat Scan, [facility] Work Phone: Start: 06-13-2023 End: 06-26-2023 Evaluation and management of inpatient Dr. Alicia Blount Work Phone: [facility]-Transitional Care Unit Start: 06-13-2023 Non-patient / Non-visit Dr. Hellen Blount Work Phone: [facility] Work Phone: Start: 06-12-2023 Non-patient / Non-visit Dr. Hellen Blount Work Phone: [facility] Work Phone: Start: 06-11-2023 Non-patient / Non-visit Dr. Hellen Blount Work Phone: [facility] Work Phone: Start: 06-10-2023 End: 06-13-2023 Evaluation and management of inpatient Dr. Alicia Blount Work Phone: [facility]-Medical Surgical 3 Work Phone: Start: 06-07-2023 End: 06-07-[address] Alicia Blount Work Phone: [facility] Neurology Work Phone: Start: 06-06-2023 ambulatory SABINO Sauer ty:[facility] Start: 06-06-2023 End: 06-06-2023 Subsequent hospital visit by physician Erik Underwood MD Work Phone: [facility] Endoscopy Comment on above: 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 [K22.70] Start: 06-05-2023 Telephone encounter Alicia rothman MD Work Phone: [facility] [place] Comment on above: Patient Question Start: 06-04-2023 End: 06-04-2023 Patient encounter procedure Radha Balderrama MD Work Phone: General Surgery Comment on above: 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 Start: 05-31-2023 End: 05-31-2023 Office outpatient visit 25 minutes Clarence Berry MOLDER PIPE COVERING.COLLEGE BASKETBALL COACH Work Phone: [facility] [place] Comment on above: Bronchiectasis witho ut complication (HCC) (Primary Dx); Carcinoid bronchial adenoma, 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HCC); Encounter for immunization; 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; Essential hypertension; Anxiety Start: 04-08-2023 End: 04-08-2023 Patient encounter procedure Navya Thrasher APRN.RESOURCE SPECIALIST Work Phone: [facility] Comment on above: Viral URI (Primary D x); Right ear pain Start: 03-28-2023 Telephone encounter Alicia rothman MD Work Phone: Internal Medicine [place] Comment on above: Medication Question Start: 03-07-2023 End: 03-07-[address] Alicia Blount Work Phone: [facility] [place] Work Phone: Start: 03-05-2023 End: 03-05-[address] Alicia Blount Work Phone: [facility] Endocrinology Work Phone: Start: 02-12-2023 Refill Alicia kirkpatrick MD Work Phone: [facility] [place] Comment on above: Opened In Error Start: 02-08-2023 Refill Nusrat Meier Deepa dstrom [facility] [place] Comment on above: Refill Request Start: 01-25-2023 Telephone encounter Alicia rothman MD Work Phone: [facility] [place] Comment on above: Orders Start: 01-01-2023 End: 01-01-2023 Subsequent hospital visit by physician Xr [facility] [place] Work Phone: Radiology Comment on above: Foot pain, right [M7 9.671] Start: 10-17-2022 End: 10-17-2022 Office outpatient visit 25 minutes Clarence Berry MOLDER PIPE COVERING.COLLEGE BASKETBALL COACH Work Phone: [facility] Medicine [place] Comment on above: Intractable acute po st-traumatic headache (Primary Dx); Contusion of right foot, initial encounter; Contusion of moravian region, initial encounter; Injury of coccyx, initial encounter; Facial pain; Jaw pain Start: 10-11-2022 Telephone encounter Alicia rothman MD Work Phone: [facility] [place] Comment on above: Insurance Authorizat ion Start: 10-10-2022 End: 10-10-2022 Subsequent hospital visit by physician Ct [facility] Wstr (I-Stat) Work Phone: Cat Scan Comment on above: Injury of head, subs equent encounter [S09.90XD] Start: 10-10-2022 End: 10-10-2022 Office outpatient visit 25 minutes Clarence Mcgregors MOLDER PIPE COVERING.COLLEGE BASKETBALL COACH Work Phone: [facility] Medicine [place] Comment on above: Intractable acute po st-traumatic headache (Primary Dx); Contusion of right foot, initial encounter; Contusion of moravian region, initial encounter; Injury of coccyx, initial encounter; Facial pain; Jaw pain; Injury of head, subsequent encounter Start: 09-30-2022 End: 09-30-2022 Office outpatient visit 40 minutes Alicia Blount MD Work Phone: [facility] [place] Comment on above: Diabetes mellitus du e to underlying condition with diabetic neuropathy, with long-term current use of insulin (HCC) (Primary Dx); Contusion of right foot, initial encounter; Contusion of moravian region, initial encounter; Injury of coccyx, initial encounter; Facial pain; Jaw pain; Anxiety; Vitamin D deficiency Start: 08-21-2022 Telephone encounter Alicia rothman MD Work Phone: [facility] [place] Comment on above: Results Start: 08-18-2022 Non-patient / Non-visit Dr. Hellen Blount Work Phone: [facility] Start: 08-18-2022 End: 08-18-[address] Alicia Blount Work Phone: [facility] Work Phone: Start: 08-18-2022 End: 08-18-[address] Alicia Blount Work Phone: [facility]-Cardiovascular Services Start: 08-15-2022 Non-patient / Non-visit Dr. Hellen Blount Work Phone: [facility] Start: 08-15-2022 End: 08-15-[address] Alicia Blount Work Phone: [facility] Work Phone: Start: 08-15-2022 End: 08-15-[address] Alicia Blount Work Phone: [facility]-Pulmonary Services/Neurology Start: 08-11-2022 Non-patient / Non-visit Dr. Hellen Blount Work Phone: [facility] Start: 08-09-2022 End: 08-09-[address] Alicia Blount Work Phone: [facility] Work Phone: Start: 08-09-2022 End: 08-09-[address] Alicia Blount Work Phone: [facility]-Pulmonary Services/Neurology Start: 08-02-2022 Telephone encounter Alicia rothman MD Work Phone: [facility] [place] Comment on above: Orders Start: 07-26-2022 End: 07-26-[address] [facility] Start: 06-23-2022 Telephone encounter Alicia rothman MD Work Phone: [address] [place] [address] Comment on above: Refill Request Start: 06-16-2022 Telephone encounter Alicia rothman MD Work Phone: [facility] [place] Comment on above: Faxed ECHO results Refill Request Start: 05-26-2022 Telephone encounter Alicia rothman MD Work Phone: [facility] [place] Comment on above: Patient Question Start: 05-26-2022 End: 05-26-[address] Alicia Blount Work Phone: [facility] Endocrinology Start: 05-17-2022 Telephone encounter Lyly sanford PA-C Work Phone: [facility] Comment on above: Results Start: 05-16-2022 End: 05-16-2022 Patient encounter procedure Kaci Savage APRN.RESOURCE SPECIALIST Work Phone: [facility] Comment on above: Suspected COVID-19 v irus infection (Primary Dx) Start: 05-15-2022 Telephone encounter Alicia rothman MD Work Phone: [facility] [place] Comment on above: Flu Like Symptoms Start: 05-02-2022 End: 05-02-2022 Patient encounter procedure Clarence Berry APRN.COLLEGE BASKETBALL COACH Work Phone: [facility] [place] Comment on above: Osteoporosis, unspec ified osteoporosis type, unspecified pathological fracture presence (Primary Dx); Anxiety; Encounter for immunization Start: 04-25-2022 End: 04-25-[address] Alicia Blount Work Phone: [facility] Start: 04-18-2022 Telephone encounter Alicia rothman MD Work Phone: [facility] [place] Comment on above: Results (Bone Densit y/) Start: 04-03-2022 End: 04-03-2022 Subsequent hospital visit by physician Bone Density 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, with long-term current use of insulin (HCC); Hyperlipidemia, unspecified hyperlipidemia type; Left lateral epicondylitis; Radial styloid tenosynovitis of left hand; Asymptomatic postmenopausal status Start: 01-30-2022 End: 01-30-2022 Subsequent hospital visit by physician Xr [facility] Work Phone: Radiology Comment on above: Ankle injury, initia l encounter [S99.919A] Start: 01-30-2022 End: 01-30-2022 Office outpatient visit 15 minutes Anu Pablo PA-C Work Phone: [facility] Comment on above: Ankle injury, initia l encounter (Primary Dx) Start: 01-13-2022 Telephone encounter Alicia rothman MD Work Phone: [facility] [place] Comment on above: Patient Question Start: 01-07-2022 Refill Alicia kirkpatrick MD Work Phone: Family [facility] [place] Comment on above: Refill Request Start: 01-02-2022 Refill Alicia kirkpatrick MD Work Phone: [facility] [place] Comment on above: Refill Request Start: 12-21-2021 End: 12-21-2021 Subsequent hospital visit by physician Erik Underwood MD Work Phone: [facility] Endoscopy Comment on above: History of Gonzales's esophagus [Z87.19] Start: 12-12-2021 Telephone encounter Alicia rothman MD Work Phone: [facility] [place] Comment on above: Patient Question (EG D, medication questions) Start: 12-01-2021 Refill Alicia kirkpatrick MD Work Phone: [facility] [place] Comment on above: Refill Request Start: 11-22-2021 End: 11-22-2021 Office outpatient visit 40 minutes Alicia Blount MD Work Phone: [facility] [place] Comment on above: Urinary tract infect ion without hematuria, site unspecified (Primary Dx); Chronic cough; Fall, initial encounter; Bilateral leg edema; Diabetes mellitus due to underlying condition with diabetic neuropathy, with long-term current use of insulin ([facility]); Vitamin D deficiency; Essential hypertension; Vitamin B6 deficiency; Encounter for long-term current use of medication; Stomach upset; Gastroesophageal reflux disease, unspecified whether esophagitis present Start: 06-03-2021 End: 06-03-2021 Subsequent hospital visit by physician Merrill [facility] [place] Work Phone: Radiology Comment on above: Suspected 2019 novel coronavirus infection [Z20.822] Procedures Date Procedure Procedure Detail Performing Clinician Start: 02-12-2024 Radiologic exam chest 2 views Martin santana MOLDER PIPE COVERING.RESOURCE SPECIALIST Work Phone: Start: 01-31-2024 Ecg routine ecg w/least 12 lds i&r only Clarence Berry MOLDER PIPE COVERING.COLLEGE BASKETBALL COACH Work Phone: Start: 12-09-2023 Urnls dip stick/tablet rgnt auto w/o microscopy Antoinette Agrawal APRN.RESOURCE SPECIALIST Work Phone: Start: 08-10-2023 MRI of cervical [...] cleared fda spec home use Sabino Rivera Dorado DO Work Phone: Start: 06-06-2023 Esophagogastroduodenoscopy transoral diagnostic Radha Balderrama MD Work Phone: Start: 06-06-2023 Gluc bld gluc mntr dev cleared fda spec home use Sabino Nicole Dorado DO Work Phone: Start: 05-31-2023 INFLUENZA VACCINE, PRSV FREE, AGE 65+ YR, HIGH DOSE, QUADRIVALENT (FLUZONE HIGH-DOSE) Clarence Berry APRN.COLLEGE BASKETBALL COACH Work Phone: Start: 01-01-2023 Radex foot complete minimum 3 views Betsy Cheng MD Work Phone: Start: 10-10-2022 Ct head/brain w/o contrast material Terr i Berry MOLDER PIPE COVERING.COLLEGE BASKETBALL COACH Work Phone: Start: 05-02-2022 INFLUENZA SEASONAL QUADRIVALENT HIGH DOSE AGE 65+ Clarence Berry MOLDER PIPE COVERING.COLLEGE BASKETBALL COACH Work Phone: Start: 04-03-2022 Dxa bone density study 1/> sites axial skel Alicia Blount MD Work Phone: Start: 01-30-2022 Radex ankle complete minimum 3 views Anu Pablo PA-C Work Phone: Start: 12-21-2021 Gluc bld gluc mntr dev cleared fda spec home use Pippa Umina AA Work Phone: Start: 12-21-2021 Esophagoscp rig transoral hypopharynx crv esoph June Limon MOLDER PIPE COVERING.RESOURCE SPECIALIST Work Phone: Start: 12-21-2021 Gluc bld gluc [...] EDT Office Visit Internal Medicine [place] [address] [place] [address] Alicia Blount MD [address] [place], [place] [id number] 4 month follow up [facility] [place] Comment on above: 4 month follow up Start: 04-13-2025 Influenza vaccination Influenza Vacc ine (#1) [facility] Start: 01-30-2025 Hepatitis B screening Urine Al bumin:Creatinine Ratio [facility] Start: 01-30-2025 Hepatitis B surface antibody level LDL Cholesterol [facility] Start: 01-26-2025 End: 01-26-2025 Patient encounter procedure 01/26/2025 4:40 PM EDT Office Visit [facility] [place] [address] [facility] [place] [address] Alicia Blount MD [address] [place] [address] 4 month follow up [facility] [place] Comment on above: 4 month follow up Start: 10-27-2024 End: 10-27-2024 Patient encounter procedure 10/27/2024 10:00 AM EDT Office Visit [facility] [place] [address] [facility] [place] [address] Clarence Berry APRN.COLLEGE BASKETBALL COACH [address] [place] [address] 4 mo follow up [facility] [place] Comment on above: 4 mo follow up Start: 10-03-2024 End: 10-03-2024 Patient encounter procedure 10/03/2024 3:00 PM EST Office Visit [facility] [place] [address] [facility] [place] [address] Alicia Blount MD [address] [place] [address] 4 month follow up [facility] [place] Comment on above: 4 month follow up Start: 09-28-2024 Hepatitis B surface antibody level LDL Cholesterol [facility] Start: 08-13-2024 Advance Directive Discussion Advance Directive Discussion [facility] Start: 07-15-2024 End: 07-15-2024 Patient encounter procedure 07/15/2024 11:20 AM EST Office Visit [facility] [place] [address] [facility] [place] [address] Alicia Blount MD [address] [place] [address] [facility] 07/12/24 for Syncope (Ok per LDT) [facility] [place] Comment on above: [facility] 07/12/24 f or Syncope (Ok per LDT) Start: 05-27-2024 End: 05-27-2024 Patient encounter procedure 05/27/2024 10:00 AM EDT Office Visit [facility] [place] [address] [place] [address] Alicia Blount MD [address] [place] [address] 4 mo follow up [facility] [place] Comment on above: 4 mo follow up Start: 05-05-2024 End: 05-05-2024 Patient encounter procedure 05/05/2024 11:20 AM EDT Office Visit Cardiology [address] [place] [address] Wstr, Nurse Card Admin [facility] [address] [place] [address] Chest pain, unspecified type [R07.9] Cardiology Comment on above: Chest pain, unspecif ied type [R07.9] Start: 05-02-2024 Hemoglobin A1c measurement HbA1C [facility] Start: 04-13-2024 Covid-19 Vaccine ( season) Covid-19 Vaccine ( season) [facility] [facility] Start: 04-13-2024 Covid-19 Vaccine ( season) Covid-19 Vaccine () [facility] Start: 04-13-2024 Influenza vaccination Influenza Vacc ine (#1) [facility] Start: 04-03-2024 Screening for osteoporosis Bone Density Screening [facility] Start: 03-10-2024 End: 03-10-2024 Patient encounter procedure 03/10/2024 11:20 AM EDT Office Visit Cardiology [address] [place] [id number] Wstr, Nurse Card Admin [facility] [address] [place] [address] Chest pain, unspecified type [R07.9] Cardiology Comment on above: Chest pain, unspecif ied type [R07.9] Start: 03-07-2024 End: 03-07-2024 Patient encounter procedure 03/07/2024 9:00 AM EDT Office Visit Vasculary Surgery [address] [place] [address] S [facility] Status: Needs Scheduling Vasculary Surgery Comment on above: S CAROTID ARTERIES [facility] Status: Needs Scheduling Start: 01-31-2024 End: 01-31-2024 Patient encounter procedure 01/31/2024 10:00 AM EDT Office Visit Internal Medicine Jovana [address] [facility] [address] Clarence Berry APRN.[employer] [address] [facility] [place] [place] [address] 4 mo follow up Internal Medicine Jovana Comment on above: 4 mo follow up Start: 01-30-2024 End: 04-30-2024 25-hydroxyvitamin D3 [Mass/volume] in Serum or Plasma VITAMIN D 25 HYDROXY Lab Routine Vitamin D deficiency Encounter for long-term current use of medication Expected: 01/30/2024 (Approximate), Expires: 04/30/2024 [facility] Work Phone: Comment on above: Expected: 01/30/2024 (Approximate), Expires: 04/30/2024 Start: 01-30-2024 3 comp foot exam completed DIABETIC FOOT EXAM [facility] Start: 01-30-2024 ANNUAL PCP TEAM SAFETY DIRECTOR ALEXANDER DISEASE VISIT ANNUAL PCP TEAM CHRONIC DISEASE VISIT [facility] Start: 01-30-2024 End: 04-30-2024 CBC panel - Blood by Automated count CBC Lab Routine 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, with long-term current use of insulin (HCC) Essential hypertension Encounter for long-term current use of medication Expected: 01/30/2024 (Approximate), Expires: 04/30/2024 [facility] Work Phone: Comment on above: Expected: 01/30/2024 (Approximate), Expires: 04/30/2024 Start: 01-30-2024 End: 04-30-2024 Cobalamin (Vitamin B12) [Mass/volume] in Serum or Plasma VITAMIN B12 BLOOD Lab Routine Encounter for long-term current use of medication Expected: 01/30/2024 (Approximate), Expires: 04/30/2024 [facility] Work Phone: Comment on above: Expected: 01/30/2024 (Approximate), Expires: 04/30/2024 Start: 01-30-2024 End: 04-30-2024 Comprehensive metabolic 2000 panel - Serum or Plasma COMP METABOLIC PANEL Lab Routine Essential hypertension Encounter for long-term current use of medication Expected: 01/30/2024 (Approximate), Expires: 04/30/2024 [facility] Work Phone: Comment on above: Expected: 01/30/2024 (Approximate), Expires: 04/30/2024 Start: 01-30-2024 Diabetic foot examination Diabetic F oot Exam [facility] Start: 01-30-2024 End: 04-30-2024 Hemoglobin A1c in Blood HGB A1C Lab Routine 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, with long-term current use of insulin (HCC) Encounter for long-term current use of medication Expected: 01/30/2024 (Approximate), Expires: 04/30/2024 [facility] Work Phone: Comment on above: Expected: 01/30/2024 (Approximate), Expires: 04/30/2024 Start: 01-30-2024 End: 04-30-2024 Lipid 1996 panel - Serum or Plasma LIPID PANEL BASIC Lab Routine 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, with long-term current use of insulin (HCC) Encounter for long-term current use of medication Expected: 01/30/2024 (Approximate), Expires: 04/30/2024 [facility] Work Phone: Comment on above: Expected: 01/30/2024 (Approximate), Expires: 04/30/2024 Start: 01-30-2024 End: 04-30-2024 Pyridoxine [Mass/volume] in Serum or Plasma VITAMIN B6/PYRIDOXIN Lab Routine Vitamin B6 deficiency Encounter for long-term current use of medication Expected: 01/30/2024 (Approximate), Expires: 04/30/2024 [facility] Work Phone: Comment on above: Expected: 01/30/2024 (Approximate), Expires: 04/30/2024 Start: 01-27-2024 Hepatitis B surface antibody level LDL CHOLESTEROL [facility] Start: 12-27-2023 Hemoglobin A1c measurement HbA1C [facility] Start: 11-27-2023 Hepb vaccine adult 3 dose schedule for im use HEP B VACCINE, 3-DOSE, AGE 20+ YR (ENGERIX-B, RECOMBIVAX HB) Immunization/Injection Routine Encounter for immunization Expected: 11/27/2023 [facility] Work Phone: Comment on above: Expected: 11/27/2023 Start: 10-18-2023 BP CONTROLLED (<130/80) BP CONTROLLE D (<130/80) [facility] Start: 10-05-2023 Glaucoma screening Dilated Retinal E xam [facility] Start: 10-05-2023 Hepatitis C antibody , confirmatory test DILATED RETINAL EXAM [facility] Start: 10-01-2023 End: 12-31-2023 ALBUMIN/CREAT RATIO RND UR ALBUMIN/CREAT RATIO RND UR Lab Routine 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, 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, managed as type 1 (HCC) Expected: 10/01/2023, Expires: 12/31/2023 [facility] Work Phone: Comment on above: Expected: 10/01/2023 , Expires: 12/31/2023 Start: 09-30-2023 ANNUAL PCP TEAM SAFETY DIRECTOR ALEXANDER DISEASE VISIT ANNUAL PCP TEAM CHRONIC DISEASE VISIT [facility] Start: 09-28-2023 End: 12-28-2023 25-hydroxyvitamin D3 [Mass/volume] in Serum or Plasma [facility] Work Phone: Comment on above: Expected: 09/28/2023 , Expires: 12/28/2023 Start: 09-28-2023 End: 12-28-2023 Lipid 1996 panel - Serum or Plasma [facility] Work Phone: Comment on above: Expected: 09/28/2023 , Expires: 12/28/2023 Start: 08-13-2023 Advance Directive Discussion Advance Directive Discussion [facility] Start: 08-13-2023 Behavioral Health Screening Behavioral Health Screening [facility] Start: 08-13-2023 Depression Assessment Depression Ass essment [facility] Start: 08-02-2023 Hepatitis B screening URINE AL BUMIN:CREATININE RATIO [facility] Start: 08-02-2023 Hepatitis B surface antibody level LDL CHOLESTEROL [facility] Start: 07-28-2023 Hemoglobin A1c measurement HbA1C [facility] Start: 07-28-2023 Hemoglobin A1c/Hemoglobin.total in Blood HBA1C [facility] Start: 07-19-2023 Patient referral [facility] Work Phone: Start: 07-13-2023 End: 09-12-2023 25-hydroxyvitamin D3 [Mass/volume] in Serum or Plasma VITAMIN D 25 HYDROXY Lab Routine Vitamin D deficiency Expected: 07/13/2023, Expires: 09/12/2023 [facility] Work Phone: Comment on above: Expected: 07/13/2023 , Expires: 09/12/2023 Start: 07-13-2023 End: 09-12-2023 ALBUMIN/CREAT RATIO RND UR ALBUMIN/CREAT RATIO RND UR Lab Routine 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, with long-term current use of insulin (HCC) Expected: 07/13/2023, Expires: 09/12/2023 [facility] Work Phone: Comment on above: Expected: 07/13/2023 , Expires: 09/12/2023 Start: 07-13-2023 End: 09-12-2023 CBC panel - Blood by Automated count CBC Lab Routine Essential hypertension Expected: 07/13/2023, Expires: 09/12/2023 [facility] Work Phone: Comment on above: Expected: 07/13/2023 , Expires: 09/12/2023 Start: 07-13-2023 End: 09-12-2023 Comprehensive metabolic 2000 panel - Serum or Plasma COMP METABOLIC PANEL Lab Routine Essential hypertension 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, with long-term current use of insulin (HCC) Expected: 07/13/2023, Expires: 09/12/2023 [facility] Work Phone: Comment on above: Expected: 07/13/2023 , Expires: 09/12/2023 Start: 07-13-2023 End: 09-12-2023 Hemoglobin A1c in Blood HGB A1C Lab Routine Diabetes mellitus due to underlying condition with diabetic neuropathy, with long-term current use of insulin (HCC) Expected: 07/13/2023, Expires: 09/12/2023 [facility] Work Phone: Comment on above: Expected: 07/13/2023 , Expires: 09/12/2023 Start: 07-13-2023 End: 09-12-2023 Lipid 1996 panel - Serum or Plasma LIPID PANEL BASIC Lab Routine Hyperlipidemia, unspecified hyperlipidemia type Expected: 07/13/2023, Expires: 09/12/2023 [facility] Work Phone: Comment on above: Expected: 07/13/2023 , Expires: 09/12/2023 Start: 07-13-2023 End: 09-12-2023 Pyridoxine [Mass/volume] in Serum or Plasma VITAMIN B6/PYRIDOXIN Lab Routine Vitamin B6 deficiency Expected: 07/13/2023, Expires: 09/12/2023 [facility] Work Phone: Comment on above: Expected: 07/13/2023 , Expires: 09/12/2023 Start: 07-12-2023 Blood chemistry [facility] Start: 07-05-2023 Blood chemistry [facility] Start: 07-01-2023 Hepb vaccine adult 3 dose schedule for im use HEP B VACCINE, 3-DOSE, AGE 20+ YR (ENGERIX-B, RECOMBIVAX HB) Immunization/Injection Routine Encounter for immunization Expected: 07/01/2023 [facility] Work Phone: Comment on above: Expected: 07/01/2023 Start: 06-28-2023 Blood chemistry [facility] Start: 06-26-2023 Patient discharge [facility] Start: 06-25-2023 Development of care plan [facility] Start: 06-25-2023 [facility] Start: 06-22-2023 Referral to service [facility] Start: 06-21-2023 Blood chemistry [facility] Start: 06-14-2023 [facility] Start: 06-14-2023 Speech therapy assessment [facility] Start: 06-14-2023 Development of care plan [facility] Start: 06-14-2023 Developing a treatme nt plan [facility] Start: 06-14-2023 Application of device [facility] Start: 06-13-2023 Admission procedure [facility] Start: 06-13-2023 Measuring intake and output [facility] Start: 06-13-2023 Patient referral to dietitian [facility] Start: 06-13-2023 Referral to occupati onal therapist [facility] Start: 06-13-2023 Referral to service [facility] Start: 06-13-2023 Verification routine [facility] Start: 06-13-2023 Vital signs measurements [facility] Start: 06-13-2023 [facility] Start: 06-13-2023 Patient discharge [facility] Start: 06-11-2023 Blood chemistry [facility] Start: 06-10-2023 Following clinical pathway protocol [facility] Start: 06-10-2023 Assessment of risk o f venous thromboembolism [facility] Start: 06-10-2023 Cardiac monitoring [facility] Start: 06-10-2023 Care regimes management [facility] Start: 06-10-2023 Catheterization of vein [facility] Start: 06-10-2023 Continuous pulse oximetry [facility] Start: 06-10-2023 Inhalation therapy procedure [facility] Start: 06-10-2023 Insertion of cathete r into peripheral vein [facility] Start: 06-10-2023 Notification of physician [facility] Start: 06-10-2023 Oxygen therapy [facility] Start: 06-10-2023 Providing care accor ding to standard [facility] Start: 06-10-2023 Referral to occupati onal therapist [facility] Start: 06-10-2023 Referral to service [facility] Start: 06-10-2023 Verification routine [facility] Start: 06-10-2023 Admission procedure [facility] Start: 06-10-[address] [facility] Start: 06-10-2023 End: 06-10-2023 [facility] Start: 06-10-2023 Bacteria identified in Blood by Culture Blood Culture [facility] Start: 06-10-2023 Bacteria identified in Urine by Culture Urine Culture [facility] Start: 06-10-2023 Patient referral to dietitian [facility] Start: 04-13-2023 Covid-19 Vaccine () Covid-19 Vaccine () [facility] Start: 04-13-2023 Influenza vaccination INFLUENZA (#1) [facility] Start: 03-31-2023 ANNUAL PCP TEAM SAFETY DIRECTOR ALEXANDER DISEASE VISIT ANNUAL PCP TEAM CHRONIC DISEASE VISIT [facility] Start: 03-31-2023 BP CONTROLLED (<130/80) BP CONTROLLE D (<130/80) [facility] Start: 03-31-2023 Urine microalbumin profile DTAP,TDAP,TD (2 - Td or Tdap) [facility] Comment on above: Postponed from 03/22 (Declined at this time) Start: 01-31-2023 Hemoglobin A1c/Hemoglobin.total in Blood HBA1C [facility] Start: 01-25-2023 End: 03-27-2023 25-hydroxyvitamin D3 [Mass/volume] in Serum or Plasma VITAMIN D 25 HYDROXY Lab Routine Vitamin D deficiency Expected: 01/25/2023, Expires: 03/27/2023 [facility] Work Phone: Comment on above: Expected: 01/25/2023 , Expires: 03/27/2023 Start: 01-25-2023 End: 03-27-2023 ALBUMIN/CREAT RATIO RND UR ALBUMIN/CREAT RATIO RND UR Lab Routine 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, with long-term current use of insulin (HCC) Expected: 01/25/2023, Expires: 03/27/2023 [facility] Work Phone: Comment on above: Expected: 01/25/2023 , Expires: 03/27/2023 Start: 01-25-2023 End: 03-27-2023 CBC W Auto Differential panel - Blood CBC + DIFF Lab Routine Vitamin D deficiency Expected: 01/25/2023, Expires: 03/27/2023 [facility] Work Phone: Comment on above: Expected: 01/25/2023 , Expires: 03/27/2023 Start: 01-25-2023 End: 03-27-2023 Comprehensive metabolic 2000 panel - Serum or Plasma COMP METABOLIC PANEL Lab Routine Diabetes mellitus due to underlying condition with diabetic neuropathy, with long-term current use of insulin ([facility]) Expected: 01/25/2023, Expires: 03/27/2023 [facility] Work Phone: Comment on above: Expected: 01/25/2023 , Expires: 03/27/2023 Start: 01-25-2023 End: 03-27-2023 Hemoglobin A1c in Blood HGB A1C Lab Routine Diabetes mellitus due to underlying condition with diabetic neuropathy, with long-term current use of insulin ([facility]) Expected: 01/25/2023, Expires: 03/27/2023 [facility] Work Phone: Comment on above: Expected: 01/25/2023 , Expires: 03/27/2023 Start: 01-25-2023 End: 03-27-2023 Lipid 1996 panel - Serum or Plasma LIPID PANEL BASIC Lab Routine Hyperlipidemia, unspecified hyperlipidemia type Expected: 01/25/2023, Expires: 03/27/2023 [facility] Work Phone: Comment on above: Expected: 01/25/2023 , Expires: 03/27/2023 Start: 01-25-2023 End: 03-27-2023 Pyridoxine [Mass/volume] in Serum or Plasma VITAMIN B6/PYRIDOXIN Lab Routine Vitamin D deficiency Expected: 01/25/2023, Expires: 03/27/2023 [facility] Work Phone: Comment on above: Expected: 01/25/2023 , Expires: 03/27/2023 Start: 12-27-2022 BP CONTROLLED (<130/80) BP CONTROLLE D (<130/80) [facility] Start: 11-22-2022 ANNUAL PCP TEAM SAFETY DIRECTOR ALEXANDER DISEASE VISIT ANNUAL PCP TEAM CHRONIC DISEASE VISIT [facility] Start: 11-22-2022 BP CONTROLLED (<130/80) BP CONTROLLE D (<130/80) [facility] Start: 10-06-2022 COVID-19 VACCINE (6 - Moderna series) COVID-19 VACCINE (6 - Moderna series) [facility] Start: 10-04-2022 Hepatitis C antibody , confirmatory test DILATED RETINAL EXAM [facility] Start: 09-27-2022 Hemoglobin A1c/Hemoglobin.total in Blood HBA1C [facility] Start: 08-13-2022 ADVANCE DIRECTIVE DISCUSSION ADVANCE DIRECTIVE DISCUSSION [facility] Start: 08-13-2022 DEPRESSION ASSESSMENT DEPRESSION ASS ESSMENT [facility] Start: 08-02-2022 End: 10-02-2022 25-hydroxyvitamin D3 [Mass/volume] in Serum or Plasma [facility] Work Phone: Comment on above: Expected: 08/02/2022 , Expires: 10/02/2022 Start: 08-02-2022 End: 10-02-2022 ALBUMIN/CREAT RATIO RND UR [facility] Work Phone: Comment on above: Expected: 08/02/2022 , Expires: 10/02/2022 Start: 08-02-2022 End: 10-02-2022 Hemoglobin A1c in Blood [facility] Work Phone: Comment on above: Expected: 08/02/2022 , Expires: 10/02/2022 Start: 08-02-2022 End: 10-02-2022 Lipid 1996 panel - Serum or Plasma [facility] Work Phone: Comment on above: Expected: 08/02/2022 , Expires: 10/02/2022 Start: 08-02-2022 End: 10-02-2022 Pyridoxine [Mass/volume] in Serum or Plasma [facility] Work Phone: Comment on above: Expected: 08/02/2022 , Expires: 10/02/2022 Start: 05-16-2022 End: 05-30-2022 Influenza virus A and B RNA and SARS-CoV-2 (COVID-19) N gene panel - Respiratory specimen by JOANNA with probe detection COVID WITH FLUA+B, ROUTINE Microbiology Routine Suspected COVID-19 virus infection Expected: 05/16/2022, Expires: 05/30/2022 [facility] Work Phone: Comment on above: Expected: 05/16/2022 , Expires: 05/30/2022 Start: 04-13-2022 Influenza vaccination INFLUENZA (#1) [facility] Start: 03-15-2022 COVID-19 VACCINE (5 - Booster for Moderna series) COVID-19 VACCINE (5 - Booster for Moderna series) [facility] Start: 03-01-2022 3 comp foot exam completed DIABETIC FOOT EXAM [facility] Start: 03-01-2022 Urine microalbumin profile DTAP,TDAP,TD (2 - Td or Tdap) [facility] Comment on above: Postponed from 03/22 (Declined at this time) Start: 01-16-2022 Hemoglobin A1c/Hemoglobin.total in Blood HBA1C [facility] Start: 11-29-2021 Adult depression screening assessment DEPRESSION SCREENING [facility] Start: 11-25-2021 Hepatitis B screening URINE AL BUMIN:CREATININE RATIO [facility] Start: 11-23-2021 Hepatitis B surface antibody level [facility] Start: 10-10-2021 COVID-19 VACCINE (4 - Booster for Moderna series) COVID-19 VACCINE (4 - Booster for Moderna series) [facility] Start: 08-13-2021 DEPRESSION ASSESSMENT DEPRESSION ASS ESSMENT [facility] Start: 04-25-2020 BP CONTROLLED (<130/80) BP CONTROLLE D (<130/80) [facility] Start: 2017 RSV Vaccine (1 - 1-d ose 75+ series) RSV Vaccine (1 - 1-dose 75+ series) [facility] Start: 03-22-2016 Urine microalbumin profile [facility] Start: 04-13-2007 Medicare Annual Well ness Visit Medicare Annual Wellness Visit [facility] Start: 2002 Hepatitis B Vaccine (1 of 3 - Risk 3-dose series) Hepatitis B Vaccine (1 of 3 - Risk 3-dose series) [facility] Start: 2002 RSV Vaccine (1 - 1-d ose 60+ series) RSV Vaccine (1 - 1-dose 60+ series) [facility] Start: 1960 Depression Screening Depression Scre ening [facility] Acetone [Presence] i n Serum or Plasma [facility] Anion gap measurement [facility] Anion gap measurement [facility] Anion gap measurement [facility] Anion gap measurement [facility] Anion gap measurement [facility] Bacteria identified in Urine by Culture URINE CULTURE Microbiology Routine Urinary frequency Ordered: 12/09/2023 [facility] Work Phone: Comment on above: Ordered: 12/09/2023 End: 11-22-2022 Basic metabolic 2000 panel - Serum or Plasma BASIC METABOLIC PNL Lab Routine Encounter for long-term current use of medication Once per month for 12 Occurrences starting 11/22/2021 until 11/22/2022 [facility] Work Phone: Comment on above: Once per month for 1 2 Occurrences starting 11/22/2021 until 11/22/2022 BUN/Creatinine ratio [facility] BUN/Creatinine ratio [facility] BUN/Creatinine ratio [facility] BUN/Creatinine ratio [facility] BUN/Creatinine ratio [facility] Calcium [Mass/volume ] in Serum or Plasma [facility] Calcium [Mass/volume ] in Serum or Plasma [facility] Calcium [Mass/volume ] in Serum or Plasma [facility] Calcium [Mass/volume ] in Serum or Plasma [facility] Calcium [Mass/volume ] in Serum or Plasma [facility] Carbon dioxide, tota l [Moles/volume] in Serum or Plasma [facility] Carbon dioxide, tota l [Moles/volume] in Serum or Plasma [facility] Carbon dioxide, tota l [Moles/volume] in Serum or Plasma [facility] Carbon dioxide, tota l [Moles/volume] in Serum or Plasma [facility] Carbon dioxide, tota l [Moles/volume] in Serum or Plasma [facility] Chloride [Moles/volu me] in Serum or Plasma [facility] Chloride [Moles/volu me] in Serum or Plasma [facility] Chloride [Moles/volu me] in Serum or Plasma [facility] Chloride [Moles/volu me] in Serum or Plasma [facility] Chloride [Moles/volu me] in Serum or Plasma [facility] Creatine kinase [Enzymatic activity/volume] in Serum or Plasma [facility] Creatinine [Moles/vo lume] in Serum or Plasma [facility] Creatinine [Moles/vo lume] in Serum or Plasma [facility] Creatinine [Moles/vo lume] in Serum or Plasma [facility] Creatinine [Moles/vo lume] in Serum or Plasma [facility] Creatinine [Moles/vo lume] in Serum or Plasma [facility] ECG COMPLETE ECG COMPLETE ECG 01/31/2024 11:04 AM EDT [facility] End: 06-04-2024 EGD DIAGNOSTIC EGD DIAGNOSTIC Endoscopy Routine 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 1 Occurrences starting 06/04/2023 until 06/04/2024 [facility] Work Phone: Comment on above: 1 Occurrences starti ng 06/04/2023 until 06/04/2024 Glucose [Mass/volume ] in Serum or Plasma [facility] Glucose [Mass/volume ] in Serum or Plasma [facility] Glucose [Mass/volume ] in Serum or Plasma [facility] Glucose [Mass/volume ] in Serum or Plasma [facility] Glucose [Mass/volume ] in Serum or Plasma [facility] Hematocrit [Volume Fraction] of Blood [facility] Hematocrit [Volume Fraction] of Blood [facility] Hematocrit [Volume Fraction] of Blood [facility] Hematocrit [Volume Fraction] of Blood [facility] Hematocrit [Volume Fraction] of Blood [facility] Hemoglobin [Mass/vol ume] in [facility] Hemoglobin [Mass/vol ume] in Blood [facility] Hemoglobin [Mass/vol ume] in Blood [facility] Hemoglobin [Mass/vol ume] in Blood [facility] Hemoglobin [Mass/vol ume] in Blood [facility] Hepb vaccine adult 3 dose schedule for im use HEP B VACCINE, 3-DOSE, AGE 20+ YR (ENGERIX-B, RECOMBIVAX HB) Immunization/Injection Routine Encounter for immunization 1 Occurrences starting 05/31/2023 [facility] Work Phone: Comment on above: 1 Occurrences starti ng 05/31/2023 Leukocytes [#/volume ] in Blood [facility] Leukocytes [#/volume ] in Blood [facility] Leukocytes [#/volume ] in Blood [facility] Leukocytes [#/volume ] in Blood [facility] Leukocytes [#/volume ] in Blood [facility] Mean corpuscular hemoglobin concentration determination [facility] Mean corpuscular hemoglobin concentration determination [facility] Mean corpuscular hemoglobin concentration determination [facility] Mean corpuscular hemoglobin concentration determination [facility] Mean corpuscular hemoglobin concentration determination [facility] Mean corpuscular hemoglobin determination [facility] Mean corpuscular hemoglobin determination [facility] Mean corpuscular hemoglobin determination [facility] Mean corpuscular hemoglobin determination [facility] Mean corpuscular hemoglobin determination [facility] Measurement of renal function [facility] Measurement of renal function [facility] Measurement of renal function [facility] Measurement of renal function [facility] Measurement of renal function [facility] MR Cervical spine [facility] Neutrophil count [facility] Neutrophil count [facility] Neutrophil count [facility] Neutrophil count [facility] Neutrophil count [facility] Neutrophil percent differential count [facility] Neutrophil percent differential count [facility] Neutrophil percent differential count [facility] Neutrophil percent differential count [facility] Neutrophil percent differential count [facility] Patient referral [facility] Work Phone: [email or web address] COVI D-19 VACCINE ( SEASON) AGE 12+ YR [employer] COVID-19 VACCINE ( SEASON) AGE 12+ YR Immunization/Injection Routine Encounter for immunization 1 Occurrences starting 05/31/2023 [facility] Work Phone: Comment on above: 1 Occurrences starti ng 05/31/2023 Platelets [#/volume] in Blood [facility] Platelets [#/volume] in Blood [facility] Platelets [#/volume] in Blood [facility] Platelets [#/volume] in Blood [facility] Platelets [#/volume] in Blood [facility] Potassium [Moles/vol ume] in Serum or Plasma [facility] Potassium [Moles/vol ume] in Serum or Plasma [facility] Potassium [Moles/vol ume] in Serum or Plasma [facility] Potassium [Moles/vol ume] in Serum or Plasma [facility] Potassium [Moles/vol ume] in Serum or Plasma [facility] Red blood cell count [facility] Red blood cell count [facility] Red blood cell count [facility] Red blood cell count [facility] Red blood cell count [facility] Red cell distributio n width determination [facility] Red cell distributio n width determination [facility] Red cell distributio n width determination [facility] Red cell distributio n width determination [facility] Red cell distributio n width determination [facility] Sodium [Moles/volume ] in Serum or Plasma [facility] Sodium [Moles/volume ] in Serum or Plasma [facility] Sodium [Moles/volume ] in Serum or Plasma [facility] Sodium [Moles/volume ] in Serum or Plasma [facility] Sodium [Moles/volume ] in Serum or Plasma [facility] End: 01-30-2025 STRESS ECHO TREADMILL STRESS ECHO TREADMILL Cardiology Routine Chest pain, unspecified type 1 Occurrences starting 01/31/2024 until 01/30/2025 [facility] Work Phone: Comment on above: 1 Occurrences starti ng 01/31/2024 until 01/30/2025 SURGICAL PATHOLOGY [facility] Work Phone: Comment on above: Release Upon Orderin g for 1 Occurrences starting 12/21/2021, 1 completed SURGICAL PATHOLOGY [facility] Work Phone: Comment on above: Release Upon Orderin g for 1 Occurrences starting 06/06/2023, 1 completed Urea nitrogen [Mass/volume] in Serum or Plasma [facility] Urea nitrogen [Mass/volume] in Serum or Plasma [facility] Urea nitrogen [Mass/volume] in Serum or Plasma [facility] Urea nitrogen [Mass/volume] in Serum or Plasma [facility] Urea nitrogen [Mass/volume] in Serum or Plasma [facility] End: 03-01-2025 US Carotid arteries - bilateral US CAROTID BILATERAL Radiology Routine Lightheadedness Syncope, unspecified syncope type 1 Occurrences starting 01/31/2024 until 03/01/2025 [facility] Comment on above: 1 Occurrences starti ng 01/31/2024 until 03/01/2025 End: 01-30-2025 US Carotid arteries - bilateral US CAROTID ARTERIES [facility] Vascular Lab Routine Lightheadedness Syncope, unspecified syncope type 1 Occurrences starting 01/31/2024 until 01/30/2025 [facility] Comment on above: 1 Occurrences starti ng 01/31/2024 until 01/30/2025 [facility] Immunizations Immunization Date Immunization Notes Care Provider [facility] 06-10-2024 influenza, high dose seasonal, preservative-free Ellen Gonzalez RN Work Phone: [facility] 06-10-2024 influenza virus vacc ine, unspecified formulation Selam Shepard MA [facility] 05-29-2024 tetanus immune globulin Venus Gonzalez RN Work Phone: [facility] 05-31-2023 influenza (HD-IIV4) vaccine, age 65+ yr, high dose, quadrivalent, PF (FLUZONE HIGH-DOSE) Clarence Berry 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 Alicia rothman Work Phone: [facility] 11-05-2021 zoster vaccine recombinant Alicia Blount MD Work Phone: [facility] 06-09-2021 COVID-19 vaccine, fu ll dose (MODERNA) Alicia Blount MD Work Phone: [facility] 05-25-2021 influenza, high dose seasonal, preservative-free Alicia Blount MD Work Phone: [facility] 03-10-2021 zoster vaccine recombinant Alicia Blount MD Work Phone: [facility] 10-20-2020 COVID-19 vaccine, fu ll dose (MODERNA) Alicia Blount MD Work Phone: [facility] 09-23-2020 COVID-19 vaccine, fu ll dose (MODERNA) Alicia Blount MD Work Phone: [facility] 07-26-2020 pneumococcal polysaccharide vaccine, 23 valent Alicia Blount MD Work Phone: [facility] 04-15-2020 influenza, injectabl e, quadrivalent, preservative free Dr. Alicia Blount Work Phone: [facility] 04-15-2020 influenza, seasonal, injectable Alicia Blount MD Work Phone: [facility] 04-25-2019 influenza, high dose seasonal, preservative-free Alicia Blount MD Work Phone: [facility] Work Phone: 04-20-2018 influenza, high dose seasonal, preservative-free Alicia Blount MD Work Phone: [facility] 05-17-2017 influenza, high dose seasonal, preservative-free Alicia Blount MD Work Phone: [facility] Work Phone: 05-11-2016 influenza, high dose seasonal, preservative-free Alicia Blount MD Work Phone: [facility] 05-12-2015 influenza, high dose seasonal, preservative-free Alicia Blount MD Work Phone: [facility] 09-07-2014 pneumococcal conjuga te vaccine, 13 valent Alicia Blount MD Work Phone: [facility] 05-13-2014 influenza, injectabl e, quadrivalent, preservative free Dr. Alicia Blount Work Phone: [facility] 05-13-2014 influenza, seasonal, injectable Alicia Blount MD Work Phone: [facility] 05-17-2013 influenza virus vacc ine, unspecified formulation Alicia Blount MD Work Phone: [facility] Work Phone: 05-18-2012 influenza virus vacc ine, unspecified formulation Alicia Blount MD Work Phone: [facility] Work Phone: 06-03-2011 influenza virus vacc yana, unspecified formulation Alicia Blount MD Work Phone: [facility] Work Phone: 05-03-2010 influenza virus vacc ine, unspecified formulation Alicia Blount MD Work Phone: [facility] Work Phone: 05-20-2009 influenza virus vacc ine, unspecified formulation Alicia Blount MD Work Phone: [facility] Work Phone: 05-13-2009 influenza virus vacc yana, unspecified formulation Alicia Blount MD Work Phone: [facility] Work Phone: 06-08-2008 influenza virus vacc ine, unspecified formulation Alicia Blount MD Work Phone: [facility] 01-08-2008 zoster vaccine, live Alicia munoz MD Work Phone: [facility] Work Phone: 09-05-2007 pneumococcal polysaccharide vaccine, 23 valent Alicia Blount MD Work Phone: [facility] Work Phone: 06-06-2007 influenza virus vacc ine, unspecified formulation Alicia Blount MD Work Phone: [facility] Work Phone: 06-19-2006 influenza virus vacc ine, unspecified formulation Alicia Blount MD Work Phone: [facility] Work Phone: 03-22-2006 tetanus toxoid, redu chuck diphtheria toxoid, and acellular pertussis vaccine, adsorbed Alicia Blount MD Work Phone: [facility] 06-08-2005 influenza virus vacc ine, unspecified formulation Alicia Blount MD Work Phone: [facility] Work Phone: Payers Date Payer Category Payer Self-pay [id number] 2015 Private Health Insurance HUMANA HUMANA MEDICARE SUPPLEMENT [id number] 2015-Present [phone] [address] [address] [place] [address] Indemnity [id number] 2015 Private Health Insurance [id number] .[id number] 2015 Private Health Insurance [id number] 2007 Medicare MEDICARE MEDICAR E A AND B [id number] 2007-Present [phone] [address] [address] [place] [address] Medicare [id number] .[id number] 2007 Medicare [id number] [id number] .2.7.3.563379.315 2007 Medicare [id number] Unknown [id number] 2.16.840.1.392418.3.579 .2.462 Unknown [id number] 2.16.840.1.334295.3.579 .2.462 Unknown [id number] 2.16.840.1.499093.3.579 .2.462 Unknown [id number] 2.16.840.1.027472.3.579 .2.462 Unknown [id number] 2.16.840.1.911041.3.579 .2.462 Unknown [id number] 2.16.840.1.004417.3.579 .2.462 Unknown [id number] 2.16.840.1.247682.3.579 .2.462 Unknown [id number] 2.16.840.1.772887.3.579 .2.462 Unknown [id number] 2.16.840.1.052108.3.579 .2.462 Unknown [id number] 2.16.840.1.230737.3.579 .2.462 Unknown [id number] 2.16.840.1.839337.3.579 .2.462 Unknown [id number] 2.16.840.1.531230.3.579 .2.462 Unknown [id number] 2.16.840.1.809547.3.579 .2.462 Unknown [id number] 2.16.840.1.212038.3.579 .2.462 Unknown [id number] 2.16.840.1.892967.3.579 .2.462 Unknown [id number] 2.16.840.1.604983.3.579 .2.462 Unknown [id number] 2.16.840.1.879062.3.579 .2.462 Unknown [id number] 2.16.840.1.182896.3.579 .2.462 Unknown [id number] 2.16.840.1.636187.3.579 .2.462 Unknown [id number] 2.16.840.1.529849.3.579 .2.462 Unknown [id number] 2.16.840.1.276878.3.579 .2.462 Unknown [id number] 2.16.840.1.063917.3.579 .2.462 Unknown [id number] 2.16.840.1.909845.3.579 .2.462 Unknown [id number] 2.840.1.214508.3.579 .2.462 Unknown [id number] 2.840.1.464647.3.579 .2.462 Unknown [id number] 2.840.1.127494.3.579 .2.462 Unknown [id number] 2.840.1.276453.3.579 .2.462 Unknown [id number] 2.840.1.170332.3.579 .2.462 Unknown [id number] 2.840.1.890337.3.579 .2.462 Unknown [id number] 2.840.1.204249.3.579 .2.462 Unknown [id number] 2.840.1.518268.3.579 .2.462 Unknown [id number] 2.840.1.204960.3.579 .2.462 Unknown [id number] 2.840.1.058664.3.579 .2.462 Unknown [id number] 2.840.1.150079.3.579 .2.462 Unknown [id number] 2.840.1.598182.3.579 .2.462 Unknown [id number] 2.16840.1.569047.3.579 .2.462 Unknown [id number] 2.16.840.1.629708.3.579 .2.462 Unknown [id number] 2.16.840.1.588543.3.579 .2.462 Unknown [id number] 2.16.840.1.676633.3.579 .2.462 Unknown [id number] 2.16.840.1.607899.3.579 .2.462 Unknown [id number] 2.16.840.1.702072.3.579 .2.462 Unknown [id number] 2.16.840.1.167472.3.579 .2.462 Unknown [id number] 2.16.840.1.007931.3.579 .2.462 Unknown [id number] 2.16840.1.286072.3.579 .2.462 Unknown [id number] 2.840.1.562154.3.579 .2.462 Unknown [id number] 2.16840.1.010784.3.579 .2.462 Unknown [id number] 2.16840.1.471781.3.579 .2.462 Unknown [id number] 2.16840.1.824941.3.579 .2.462 Unknown [id number] 2.16.840.1.344866.3.579 .2.462 Unknown [id number] 2.16840.1.253301.3.579 .2.462 Unknown [id number] 2.16840.1.807282.3.579 .2.462 Unknown [id number] 2.16.840.1.064904.3.579 .2.462 Unknown [id number] 2.16.840.1.723334.3.579 .2.462 Unknown [id number] 2.16.840.1.941639.3.579 .2.462 Unknown [id number] 2.16840.1.597451.3.579 .2.462 Unknown [id number] 2.16.840.1.720243.3.579 .2.462 Unknown [id number] 2.16.840.1.804228.3.579 .2.462 Unknown [id number] 2.16.840.1.895524.3.579 .2.462 Unknown [id number] 2.16840.1.185657.3.579 .2.462 Unknown [id number] 2.16.840.1.756949.3.579 .2.462 Unknown [id number] 2.840.1.300497.3.579 .2.462 Unknown [id number] 2.840.1.474804.3.579 .2.462 Unknown 17999938 2.840.1.214942.3.579 .2.462 Unknown [id number] 2.840.1.968531.3.579 .2.462 Unknown [id number] 2.840.1.260397.3.579 .2.462 Unknown [id number] 2.840.1.101338.3.579 .2.462 Unknown [id number] 2.840.1.962702.3.579 .2.462 Unknown [id number] 2.840.1.103308.3.579 .2.462 Unknown [id number] 2.840.1.433191.3.579 .2.462 Unknown [id number] 2.16840.1.750484.3.579 .2.462 Unknown [id number] 2.16840.1.710713.3.579 .2.462 Unknown [id number] 2.16840.1.743049.3.579 .2.462 Unknown 45445807 2.16840.1.876820.3.579 .2.462 Unknown [id number] 2.16840.1.984990.3.579 .2.462 Unknown [id number] 2.16.840.1.090033.3.579 .2.462 Unknown [id number] 2.16.840.1.010084.3.579 .2.462 Unknown [id number] 2.16.840.1.407536.3.579 .2.462 Unknown [id number] 2.16.840.1.489102.3.579 .2.462 Unknown [id number] 2.16.840.1.616468.3.579 .2.462 Unknown [id number] 2.16840.1.100858.3.579 .2.462 Unknown [id number] 2.16.840.1.008187.3.579 .2.462 Unknown [id number] 2.16840.1.273808.3.579 .2.462 Unknown [id number] 2.16840.1.374648.3.579 .2.462 Social History Date Type Detail Facility Start: 02-10-2011 End: 05-02-2022 Tobacco smoking status NHIS Never smoked tobacco [facility] Start: 09-19-2021 End: 07-15-2024 Alcohol intake Current drinker of alcohol (finding) [facility] Start: 10-07-2014 History SDOH Alcohol Comment 2-3 drinks/years [facility] Start: 1940 Sex Assigned At Not on file C [facility] Start: 05-04-2021 End: 05-16-2022 Exposure to SARS-CoV-2 (event) Not sure [facility] Start: 02-10-2011 End: 05-02-2022 Tobacco use and exposure Smokeless tobacco non-user [facility] Start: 07-26-2022 End: 07-31-2023 Tobacco smoking status NHIS Unknown if ever smoked [facility] Start: 03-13-2017 Spouse/ Signif icant Other [facility] Start: 1940 Sex Assigned At Female W [facility] Start: 01-29-2023 End: 12-03-2024 History of Social function [facility] Work Phone: Start: 01-29-2023 End: 07-15-2024 Tobacco use panel [facility] Work Phone: Start: 07-14-2012 Adult Depression Screening Assessment 0 [facility] Work Phone: Medical Equipment Procedure Code Equipment Code Equipment Origin al Text Equipment Identifier Dates [id number], [id number], [id number], [id number], [id number], [id number], [id number] Start: 07-15-2014 End: 08-14-2023 Comment on above: [...] Assessment Result Facility 06-26-2023 Functional status Bedrest [facility] Work Phone: 06-19-2023 Functional status Chair [facility] Work Phone: 06-18-2023 Functional status Standard Walker [facility] Work Phone: 06-17-2023 Functional status Bedrest [facility] Work Phone: 06-13-2023 Functional status Chair;Bathroom [employer] [facility] Work Phone: 03-18-2015 Are you deaf, or do you have serious difficulty hearing No 03/18/2015 11:55 AM Harlan Merritt LPN No [facility] 03-18-2015 Are you blind, or do you have serious difficulty seeing, even when wearing glasses No 03/18/2015 11:55 AM Harlan Merritt LPN No [facility] 03-18-2015 Do you have serious difficulty walking or climbing stairs No 03/18/2015 11:55 AM MARISELAT Harlan Zarate LPN No [facility] 03-18-2015 Do you have difficul ty dressing or bathing No 03/18/2015 11:55 AM Harlan Merritt LPN No [facility] 03-18-2015 Because of a physica l, mental, or emotional condition, do you have difficulty doing errands alone such as visiting a physician's office or shopping No 03/18/2015 11:55 AM MARISELAT Harlan Zarate LPN No [facility] Mental Status Date Assessment Result Facility 06-26-2023 Cognitive function Voice/Name;Touch/Shaki ng [facility] Work Phone: 06-22-2023 Cognitive function Appropriate;Cooperativ e [facility] Work Phone: 06-18-2023 Cognitive function Voice/Name [facility] Work Phone: 06-17-2023 Cognitive function Voice/Name [facility] Work Phone: 06-13-2023 Cognitive function Voice/Name [facility] Work Phone: 06-10-2023 Cognitive function Level Of Cons ciousness Awake;Alert;Appropriate;Fol lows Commands [facility] Work Phone: 03-18-2015 Because of a physica l, mental, or emotional condition, do you have serious difficulty concentrating, remembering, or making decisions No 03/18/2015 11:55 AM EDT Harlan Zarate LPN No [facility] Clinical Notes 11-14-2014 to 04-09-2025 Selam Shepard MA - 03/26/2025 9:44 AM Selam Lou MA - 02/23/2025 8:26 AM Selam Lou MA - 01/22/2025 10:22 AM Selam Lou MA - 12/23/2024 8:37 AM EDTPatient Instructions Note Date & Type Note Facility 04-09-2025 Note [facility] 03-26-2025 Note HNO ID: [id number] Author: SELAM SHEPARD MA Service: ? Author Type: Early Childhood Associate Teacher Type: Progress Notes Filed: 03/26/2025 09:47 Note [...] Shepard MA March 26, 2025 9:44 AM [facility] 03-26-2025 History of Presen t illness [...] 2025 9:44 AM documented in this encounter [facility] 03-26-2025 Note Patient Outreach (NE TNAV) ANA IVORY ([id number]) 1940 F Date Time Provider Department 03/26/25 [...] 12/29/2020 14 - Other: See Comments NEOSPORIN ([id number]*08/31/19 09 2 - Rash Comments: blisters PIOGLITAZONE [...] Munguia refjere) Also has SSI. - Insulin Stanton, Disposable, (BD ULTRA-FINE FOZIA PEN NEEDLE) 32 [...] daily. For 30 days - multivitamin-folic acid-biotin (XDKK-ZTHV-UYWJZ, WW-JD-NBMXHU,) 400-2,000 mcg tab Take by mouth. - collagen, bovine, 100 % powd Apply t (more content not included)... [facility] 02-23-2025 Note HNO ID: [id number] Author: SELAM SHEPARD MA Service: ? Author Type: Early Childhood Associate Teacher Type: Progress Notes Filed: 02/23/2025 08:26 Note [...] Shepard MA February 23, 2025 8:26 AM [facility] 02-23-2025 History of Presen t illness [...] 2025 8:26 AM documented in this encounter [facility] 02-23-2025 Note Patient Outreach (NE TNAV) ANA IVOYR ([id number]) 1940 F Date Time Provider Department 02/23/25 [...] 12/29/2020 14 - Other: See Comments NEOSPORIN ([id number]*08/31/19 09 2 - Rash Comments: blisters PIOGLITAZONE 12/29/2020 16 - Unknown PROTONIX (PANTOPRAZOLE) 01/13/2010 6 - Diarrhea RELAFEN (NABUMETONE) 03/22/2006 8 - GI Upset 11 - Vomiting SHRIMP 12/21/2021 8 - GI Upset ACTOS (PIOGLITAZONE HCL) 12/03/2016 7 - Swelling Date Reviewed: 07/15/2024 Reviewed by: Edwige Reyes LPN - Fully Assessed Reason for Visit: Population Health Navigation Outreach [3910] Cmt: Colona/Workbench/ACO Prescriptions as of 02/23/2025 - SEMGLEE,INSULIN GLARG-YFGN,PEN [...] Munguia refjere) Also has SSI. - Insulin Stanton, Disposable, (BD ULTRA-FINE FOZIA PEN NEEDLE) 32 [...] daily. For 30 days - multivitamin-folic acid-biotin (QCBC-ADXB-ZAXLV, TJ-[id number],) 400-2,000 mcg tab Take by mouth. - collagen, bovine, 100 % powd Apply to affected area. - Cranberry-V (more content not included)... [facility] 01-22-2025 Note HNO ID: [id number] Author: SELAM SHEPARD MA Service: ? Author Type: Early Childhood Associate Teacher Type: Progress Notes Filed: 01/22/2025 10:23 Note [...] Shepard MA January 22, 2025 10:22 AM [facility] 01-22-2025 History of Presen t illness [...] 2025 10:22 AM documented in this encounter [facility] 01-22-2025 Note Patient Outreach (TONY TRUONG) ANA IVORY ([id number]) 1940 F Date Time Provider Department 01/22/25 [...] 12/29/2020 14 - Other: See Comments NEOSPORIN ([id number]*08/31/19 09 2 - Rash Comments: blisters PIOGLITAZONE [...] Munguia refjere) Also has SSI. - Insulin Stanton, Disposable, (BD ULTRA-FINE FOZIA PEN NEEDLE) 32 [...] daily. For 30 days - multivitamin-folic acid-biotin (GVJC-FMBR-GTQHJ, JY-NT-VMGQVG,) 400-2,000 mcg tab Take by mouth. - collagen, bovine, 100 % powd Jonel (more content not included)... [facility] 12-23-2024 Note HNO ID: [id number] Author: SELAM SHEPARD MA Service: ? Author Type: Early Childhood Associate Teacher Type: Progress Notes Filed: 12/23/2024 08:38 Note [...] Shepard MA December 23, 2024 8:37 AM [facility] 12-23-2024 History of Presen t illness [...] or unnecessary to reach patient: Left message CellE[employer] message sent HCC related Navigation Signature: Selam Shepard MA December 23, 2024 8:09 AM documented in this encounter [facility] 12-23-2024 Note HNO ID: [id number] Author: SELAM SHEPARD MA Service: ? Author Type: Early Childhood Associate Teacher Type: Progress Notes Filed: 12/23/2024 08:10 Note [...] or unnecessary to reach patient: Left message [employer] message sent HCC related Navigation Signature: Selam Shepard MA December 23, 2024 8:09 AM [facility] 12-23-2024 Note Patient Outreach (TONY TRUONG) ANA IVORY ([id number]) 1940 F Date Time Provider Department 12/23/24 [...] 12/29/2020 14 - Other: See Comments NEOSPORIN ([id number]*08/31/19 09 2 - Rash Comments: blisters PIOGLITAZONE [...] with dinner. Adjust as directed. (Dr. Genny Munugia refills) Also has SSI. - Insulin Stanton, Disposable, (BD ULTRA-FINE FOZIA PEN NEEDLE) 32 [...] reader (FREESTYLE DONTRELL (more content not included)... [facility] 12-19-2024 Telephone encounter Note Noted. Alicia Blount MD [facility] 12-19-2024 Miscellaneous Notes Noted. Alicia Blount MD Shani from [facility] calling with plan of care starting next week, OT 2 visits weekly for 3 weeks, working on balance and ADL's and meal prep. Do not need a call back. documented in this encounter [facility] 12-18-2024 Telephone encounter Note Shani from [facility] calling with plan of care starting next week, OT 2 visits weekly for 3 weeks, working on balance and ADL's and meal prep. Do not need a call back. [facility] 12-17-2024 Telephone encounter Note Home care Certification Form 485 received from [facility]. For cert dates 10/20/24-12/18/24 that were signed on 10/30/24. New Certification Patient's home health 485 form / care plan for stated certification period reviewed and signed. Relevant medical records were reviewed. No changes were indicated [facility] 12-17-2024 Miscellaneous Notes Home care Certification Form 485 received from [facility]. For cert dates 10/20/24-12/18/24 that were signed on 10/30/24. New Certification Patient's home health 485 form / care plan for stated certification period reviewed and signed. Relevant medical records were reviewed. No changes were indicated documented in this encounter [facility] 12-15-2024 Telephone encounter Note Noted and agree. [facility] Work Phone: 12-15-2024 Miscellaneous Notes Noted and agree. Shani from [facility] calling with OT plan of care, one visit this week. She will call back with new plan next week. No need for return call. documented in this encounter [facility] 12-15-2024 Telephone encounter Note Shani from [facility] calling with OT plan of care, one visit this week. She will call back with new plan next week. No need for return call. [facility] 12-10-2024 Telephone encounter Note Noted, agree. [facility] Work Phone: 12-10-2024 Miscellaneous Notes Noted, agree. Shani - OT- reports she was suppose to see pt today but pt cancelled due to a hair appt. Shani will see patient next week instead. Shani states she will go ahead and put the order in, and doesn't need a call back unless pcp disagrees. documented in this encounter [facility] 12-10-2024 Telephone encounter Note Shani - OT- reports she was suppose to see pt today but pt cancelled due to a hair appt. Shani will see patient next week instead. Shani states she will go ahead and put the order in, and doesn't need a call back unless pcp disagrees. [facility] 11-20-2024 Telephone encounter Note Noted, [place] [facility] 11-20-2024 Miscellaneous Notes Noted, [place] Shani OT calling from [facility] to report plan of care for patient [...] Coby Reynolds RN documented in this encounter [facility] 11-20-2024 Note HNO ID: [id number] Author: SELAM SHEPARD MA Service: ? Author Type: Early Childhood Associate Teacher Type: Progress Notes Filed: 11/20/2024 08:58 Note [...] Shepard MA November 20, 2024 8:57 AM [facility] 11-20-2024 History of Presen t illness [...] 2024 8:57 AM documented in this encounter [facility] 11-20-2024 Note Patient Outreach (NE TNAV) ANA IVORY ([id number]) 1940 F Date Time Provider Department 11/20/24 [...] 12/29/2020 14 - Other: See Comments NEOSPORIN ([id number]*08/31/19 09 2 - Rash Comments: blisters PIOGLITAZONE [...] Munguia refills) Also has SSI. - Insulin Stanton, Disposable, (BD ULTRA-FINE FOZIA PEN NEEDLE) 32 [...] daily. For 30 days - multivitamin-folic acid-biotin (VFBD-QFPI-WKBXB, SX-FO-NIQRIO,) 400-2,000 mcg tab Take by mouth. - collagen, bovine, 100 % powd Apply to affe (more content not included)... [facility] 11-19-2024 Telephone encounter Note Shani STEWART calling from [facility] to report plan of care for patient [...] back needed unless questions Coby Reynolds RN [facility] 10-29-2024 Telephone encounter Note Detailed message left for nurse Choi of below instructions. [facility] 10-29-2024 Miscellaneous Notes Detailed message left for [...] UTI if develops concerning symptoms. Steph from [facility] calling she was the mailing section clerk nurse this weekend and was called by the patient daughter Sunday. Daughter said she had not given her mother the macrobid rx for 4 days, she did not know she was to continue taking the medication. Nurse had called Dr dining car conductor Sunday and was told patient to continue taking the macrobid rx. Daughter said she was not given the urine culture results from the hospital. Aware patient needs to schedule hospital follow up appt. Nurse was asking about if patient needs to have another urine test done? Please advise documented in this encounter [facility] 10-28-2024 Telephone encounter Note Looks like Dr. Forbes sent the RX for macrobid because patient complained of dysuria. It was added to the discharge summary (addendum) so was not part of the main part of the discharge summary. If she does not have any symptoms, can hold of on th antibiotic. Can check urine for UTI if develops concerning symptoms. [facility] 10-27-2024 Telephone encounter Note The 98 pills should have said 8. I must have hit the 9 by accident as noted in the actual question: Karina asking if provider wants patient to take the baby aspirin and continue the 8 remaining doses of Macrobid? Message left for Karina with [facility] to notify that patient should be taking Baby Aspirin daily and finishing ATB. I am closing this encounter as now there are several others regarding same issue. Anne Rivera RN [facility] 10-27-2024 Miscellaneous Notes The 98 pills should have said 8. I must have hit the 9 by accident as noted in the actual question: Karina asking if provider wants patient to take the baby aspirin and continue the 8 remaining doses of Macrobid? Message left for Karina with [facility] to notify that patient should be taking [...] only prescribed 14 pills Karina nurse with [facility] HH calls to let provider know that [...] of Macrobid? Karina requests call back at [phone]. Please review and advise, Anne Rivera RN documented in this encounter [facility] 10-27-2024 Telephone encounter Note [facility]- phoned with OT update POC: will see pt 2 x's week for 4 weeks for ADLs and IADLs and also reporting delay of care eval due to full schedule. No call back needed. [facility] 10-27-2024 Miscellaneous Notes [facility]- phoned with OT update POC: will see pt 2 x's week for 4 weeks for ADLs and IADLs and also reporting delay of care eval due to full schedule. No call back needed. documented in this encounter [facility] 10-27-2024 Telephone encounter Note Steph from [facility] calling she was the mailing section clerk nurse this weekend and was called by the patient daughter Sunday. Daughter said she had not given her mother the macrobid rx for 4 days, she did not know she was to continue taking the medication. Nurse had called Dr dining car conductor Sunday and was told patient to continue taking the macrobid rx. Daughter said she was not given the urine culture results from the hospital. Aware patient needs to schedule hospital follow up appt. Nurse was asking about if patient needs to have another urine test done? Please advise [facility] 10-25-2024 Telephone encounter Note Received call from [facility] nurse regarding patient. Pt was discharged from [...] home health visit. Dr. Ligia Schilling DO [facility] Work Phone: 10-25-2024 Miscellaneous Notes Received call from [facility] nurse regarding patient. Pt was discharged from [...] Ligia Schilling DO documented in this encounter [facility] 10-25-2024 Telephone encounter Note Steph RN with [facility] for patient, calling requesting urine lab order; [...] have any questions, you can call Nurse dining car conductor back. Gabrielle Murdock RN [facility] 10-25-2024 Miscellaneous Notes Steph BRYANT with [facility] for patient, calling requesting urine lab order; [...] have any questions, you can call Nurse dining car conductor back. Gabrielle Gall, RN documented in this encounter [facility] 10-25-2024 Telephone encounter Note Baby aspirin is [...] -- Dr. Forbes only prescribed 14 pills [facility] 10-24-2024 Telephone encounter Note Karina nurse with [facility] calls to let provider know that [...] of Macrobid? Karina requests call back at [phone]. Please review and advise, Anne Rivera RN [facility] 10-24-2024 Telephone encounter Note Noted. [facility] Work Phone: 10-24-2024 Miscellaneous Notes Noted. Rhina from [facility] calling she has completed patient ST eval and plan to work on swallowing therapy, 2 visits weekly for 2 weeks. No need to return call. documented in this encounter [facility] 10-23-2024 Telephone encounter Note Rhina from [facility] calling she has completed patient ST eval and plan to work on swallowing therapy, 2 visits weekly for 2 weeks. No need to return call. [facility] 10-21-2024 Telephone encounter Note Below response left on identified vm. Juana Muro LPN [facility] 10-21-2024 Miscellaneous Notes Below response left on [...] Dr. Genny Munguia (endo) Updated med list aHrdik BRYANT CM [facility] POC on Pt and reports they will [...] Asprin 81 mg. documented in this encounter [facility] 10-21-2024 Telephone encounter Note Patient has intolerance [...] Noted insulin changes per Dr. Genny Munguia ([facility]) Updated med list [facility] 10-20-2024 Telephone encounter Note Hardik BRYANT [facility] POC on Pt and reports [...] shouldn't be taking the Asprin 81 mg. [facility] 10-17-2024 Telephone encounter Note Called and left a detailed voicemail notifying [facility] of providers message. Clinic phone number was left in case they had any questions. Judith Renteria RN [facility] 10-17-2024 Miscellaneous Notes Called and left a detailed voicemail notifying [facility] of providers message. Clinic phone number was left in case they had any questions. Judith Renteria RN Please call and let them know that yes, we will follow. Thanks. Isabella Emerson APRN.NEMESIO [facility] called in and reports Pt was D/Chuck from TCU today for a stroke on 08/30. Pt was discharged with PT/OT/SN/SW/ST. She was asking if provider would be willing to follow. Please call and advise. documented in this encounter [facility] 10-17-2024 Telephone encounter Note Please call and let them know that yes, we will follow. Thanks. Isabella Emerson APRN.CNP [facility] Work Phone: 10-17-2024 Telephone encounter Note [facility] called in and reports Pt was D/Chuck from TCU today for a stroke on 08/30. Pt was discharged with PT/OT/SN/SW/ST. She was asking if provider would be willing to follow. Please call and advise. [facility] 10-10-2024 Note [facility] 09-21-2024 Note [facility] 09-19-2024 Note [facility] 08-29-2024 Note [facility] 08-29-2024 Note [facility] 08-25-2024 Note [facility] 08-07-2024 Note [facility] 08-06-2024 Note [facility] 08-01-2024 Note HNO ID: [id number] Author: ELLEN GONZALEZ RN Service: ? Author Type: Registered Nurse Type: Progress Notes Filed: 08/01/2024 10:47 Note Text: Transitional Care Management (TCM) Follow-Up Note PCP Update / Actionable Items N/A - No specialty updates needed Patient Source: Jjd-oh-Emnzxwo (OON) Discharge Outreach Summary: Pt reports she is currently experiencing cold symptoms, congestion, fatigue. Denies any fever, chills, vomiting. Blood sugar continues to be up and down over the last week in the 200's, using SSI . Pt. encouraged to call PCP with any questions or concerns. Patient discharged from [facility] Discharge date: 07/12/24 Admitted for: Syncope Readmission [...] Gonzalez RN August 01, 2024 10:46 AM [facility] 08-01-2024 History of Presen t illness Narrative Transitional Care Management (TCM) Follow-Up Note PCP Update / Actionable Items N/A - No specialty updates needed Patient Source: Jmp-wj-Xafezwr (OON) Discharge Outreach Summary: Pt reports she is currently experiencing cold symptoms, congestion, fatigue. Denies any fever, chills, vomiting. Blood sugar continues to be up and down over the last week in the 200's, using SSI . Pt. encouraged to call PCP with any questions or concerns. Patient discharged from [facility]. Discharge date: 07/12/24 Admitted for: Syncope [...] 2024 10:46 AM documented in this encounter [facility] 08-01-2024 Note Patient Outreach ([place] [facility] ANA IVORY ([id number]) 1940 F Date Time Provider Department 08/01/24 ELLEN GONZALEZ [facility] During your visit today, we recorded the following information about you: Ellen Gonzalez RN 08/01/2024 10:47 AM Signed Transitional Care Management (TCM) Follow-Up Note PCP Update / Actionable Items N/A - No specialty updates needed Patient Source: Vag-lj-Fsdnnqi (OON) Discharge Outreach Summary: Pt reports she is currently experiencing cold symptoms, congestion, fatigue. Denies any fever, chills, vomiting. Blood sugar continues to be up and down over the last week in the 200's, using SSI . Pt. encouraged to call PCP with any questions or concerns. Patient discharged from [facility]. Discharge date: 07/12/24 Admitted for: Syncope [...] 12/29/2020 14 - Other: See Comments NEOSPORIN ([id number]*08/31/19 09 2 - Rash Comments: blisters PIOGLITAZONE [...] mg by joe (more content not included)... [facility] 07-24-2024 Note HNO ID: [id number] Author: ELLEN GONZALEZ RN Service: ? Author Type: Registered Nurse Type: Progress Notes Filed: 07/24/2024 13:18 Note Text: Transitional Care Management (TCM) Follow-Up Note PCP Update / Actionable Items N/A - No specialty updates needed Patient Source: Pir-gt-Unmfogq (OON) Discharge Outreach Summary: Pt reports her blood sugar continues to run high during the day - has been running in the high 200's . Pt states she is following with marion Steele at [facility] and awaiting approval on an insulin pump. Encouraged pt to contact Dr. Munguia or PCP 's office should Blood glucose continue to increase above 300. Patient discharged from [facility]. Discharge date: 07/12/24 Admitted for: Syncope [...] Gonzalez RN July 24, 2024 1:13 PM [facility] 07-24-2024 Note Patient Outreach [place] [facility] ANA IVORY ([id number]) 1940 F Date Time Provider Department 07/24/24 ELLEN GONZALEZ [facility] During your visit today, we recorded the following information about you: Ellen Gonzalez RN 07/24/2024 1:18 PM Signed Transitional Care Management (TCM) Follow-Up Note PCP Update / Actionable Items N/A - No specialty updates needed Patient Source: Lsr-ln-Qisjkcj (OON) Discharge Outreach Summary: Pt reports her blood sugar continues to run high during the day - has been running in the high 200's . Pt states she is following with marion Steele at [facility] and awaiting approval on an insulin pump. Encouraged pt to contact Dr. Munguia or PCP 's office should Blood glucose continue to increase above 300. Patient discharged from [facility]. Discharge date: 07/12/24 Admitted for: Syncope [...] 12/29/2020 14 - Other: See Comments NEOSPORIN ([id number]*08/31/19 09 2 - Rash Comments: blisters PIOGLITAZONE [...] 28 Units subcutaneousl (more content not included)... [facility] 07-16-2024 Note HNO ID: [id number] Author: MELANY JESUS MA Service: ? Author Type: Early Childhood Associate Teacher Type: Progress Notes Filed: 07/16/2024 08:55 Note Text: POPULATION HEALTH NAVIGATION OUTREACH Action/[facility] Pool Message: Type: TCM Navigation Team Please assist with scheduling TCM Hospital Discharge Follow up. TCM Eligible until 07/26/24 Patient discharged from: [facility] Discharge date: 07/12/24 Admitted for: Syncope TCM eligible through 07/26/24 Outcome: Final attempt. Patient was seen yesterday for her hospital follow up appointment. Reason for Outreach Returned Call/MyChart Patient Contacted: Unable or unnecessary to reach patient: Patient already scheduled Navigation Signature: Melany Jesus MA July 16, 2024 8:54 AM [facility] 07-15-2024 Instructions Alicia Blount MD - [...] appointment in September. documented in this encounter [facility] 07-15-2024 Note HNO ID: [id number] Author: ALICIA BLOUNT MD Service: ? Author [...] a 84 year old lady here for [facility] hospital follow up appointment. Ana [...] has upcoming lab work scheduled with her report clerk, Dr. Munguia. She also reports frequent urination but denies symptoms of diabetic ketoacidosis. Ana uses a Ventolin inhaler for bronchiectasis and requests a refill. She reports that she is supposed to use it three times a day, six puffs each time, but is currently out of the medication. She has an appointment with her flat screen worker, Dr. Chanel, in August. PAST MEDICAL HISTORY Diagnosis Date Acute gastritis without mention of hemorrhage 10/31/2007 Adverse reaction to non-steroidal anti-inflammatory drug (NSAID) 03/28/2010 KATHERIN positive 03/04/2014 Gonzales's esophagus C. difficile diarrhea 10/18/2011 Cataract 04/17/2013 [facility], Dr. Dada Rodríguez. Mild cataract in L eye- no need for cataract surgery at this time. Continue to follow up the cataract. 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 At this time, we anticipate that [...] care for assistance with chest tube to [facility]. Return to [facility] on Sunday11/18/[address] . 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 A face to face encounter was performed during this hospital admission r (more content not included)... [facility] 07-15-2024 History of Presen t illness Narrative Transitional Care Management [facility] Eligibility Documentation Program: Transitional Care [...] a 84 year old lady here for [facility] hospital follow up appointment. Ana [...] has upcoming lab work scheduled with her report clerk, Dr. Munguia. She also reports frequent urination but denies symptoms of diabetic ketoacidosis. Ana uses a Ventolin inhaler for bronchiectasis and requests a refill. She reports that she is supposed to use it three times a day, six puffs each time, but is currently out of the medication. She has an appointment with her flat screen worker, Dr. Chanel, in August. 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 Dada Rodríguez. Mild cataract in L eye- no need for cataract surgery at this time. Continue to follow up the cataract. 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 At this time, we anticipate that [...] care for assistance with chest tube to [facility]. Return to [facility] on Sunday11/18/14 for [...] daily at bedtime. (Dr. Genny funes)) Insulin Stanton, Disposable, (BD ULTRA-FINE FOZIA PEN NEEDLE) 32 [...] once daily. For 30 days multivitamin-folic acid-biotin (TMZW-XSCH-GMCSX, XH-FC-CBGLLV,) 400-2,000 mcg tab Take by mouth. collagen, [...] (no units) Date Value 07/18/2021 7.4 From [facility] Blood cultures x2 from two different sites No growth in 48 hours. Normal [facility] Yeast, not Shanna albicans [place] Count 80,000-100,000 Normal [facility] # Syncope, unspecified syncope type (R55) [...] as needed for bronchospasm. - Follow-up with flat screen worker Dr. Chanel scheduled in August. - Monitor for any changes in respiratory status or increased frequency of bronchospasm episodes. Alicia Blount MD documented in this encounter [facility] 07-14-2024 Note HNO ID: [id number] Author: MELANY JESUS MA Service: ? Author Type: Early Childhood Associate Teacher Type: Progress Notes Filed: 07/14/2024 12:41 Note Text: POPULATION HEALTH NAVIGATION OUTREACH Action/FYI CM Pool Message: Type: TCM Navigation Team Please assist with scheduling [facility] Hospital Discharge Follow up. TCM Eligible until 07/26/24 Patient discharged from: [facility] Discharge date: 07/12/24 Admitted for: Syncope TCM [...] Jesus MA July 14, 2024 12:09 PM [facility] 07-14-2024 History of Presen t illness Narrative POPULATION HEALTH NAVIGATION OUTREACH Action/FYI CM Pool Message: Type: TCM Navigation Team Please assist with scheduling TCM Hospital Discharge Follow up. TCM Eligible until 07/26/24 Patient discharged from: [facility] Discharge date: 07/12/24 Admitted for: Syncope TCM [...] TCM Home Visit Referral Source of Stratification: [facility] Hospital Admission Status: Discharged Readmission Risk Score: n/a Patient's zip code: [address] Is zip code within program service area: [...] Eligible until 07/26/24 Thank you Patient Source: Qax-uj-Tuvuizo (OON) Discharge Outreach Summary: Spoke with pt's [...] RN and I am calling from the [facility] on behalf of your Primary Care Provider, [...] to speak with a social work steam frame operator to help give you support for any [...] I will send your request to a crew scheduler who will contact and assist you with [...] Complete Navigation Team box and route to [facility] ([id number]) for scheduling. Education Patient and family educated on issues/questions related to reason for admission, transition of care topics, and follow-up needed upon discharge. Targets addressed / completed during outreach: Contact patient within two (2) business days Outreach Outcome: Enrolled in TCM Care Management partners utilized: Navigation Team Ellen Gonzalez RN July 14, 2024 11:58 AM documented in this encounter [facility] 07-14-2024 Note HNO ID: [id number] Author: ELLEN GONZALEZ RN Service: ? Author Type: Registered Nurse Type: Progress Notes Filed: 07/14/2024 12:07 Note Text: Transition Care Management (TCM) Initial Outreach PCP Update / Actionable Items HRTIC TCM Home Visit Referral Source of Stratification: [facility] Hospital Admission Status: Discharged Readmission Risk Score: n/a Patient's zip code: [address] Is zip code within program service area: [...] Eligible until 07/26/24 Thank you Patient Source: Kfi-xy-Ncyivsl (OON) Discharge Outreach Summary: Spoke with pt's [...] pt is staying hydrated. Patient discharged from [facility] Discharge date: 07/12/24 Admitted for: Syncope Readmission Risk: n/a Value-Based Contract: ACO Contact: Contact made with patient: Yes Hi, my name is Ellen Gonzalez RN and I am calling from the [facility] on behalf of your Primary Care Provider, [...] to speak with a social work steam frame operator to help give you support for any [...] I will send your request to a crew scheduler who will contact and assist you with [...] Complete Navigation Team box and route to [facility] ([id number]) for scheduling. Education Patient and family educated on issues/questions related to reason for admission, transition of care topics, and follow-up needed upon discharge. Targets addressed / completed during outreach: Contact patient within two (2) business days Outreach Outcome: Enrolled in TCM Care Management partners utilized: Navigation Team Ellen Gonzalez RN July 14, 2024 11:58 AM [facility] 07-14-2024 Note [place] Out[place] [facility] [place] ANA IVORY ([id number]) 1940 F Date Time Provider Department 07/14/24 ELLEN GONZALEZ [facility] During your visit today, we recorded the following information about you: Ellen Gonzalez RN 07/14/2024 12:07 PM Signed Transition Care Management (TCM) Initial Outreach PCP Update / Actionable Items HRTIC TCM Home Visit Referral Source of Stratification: [facility] Hospital Admission Status: Discharged Readmission Risk Score: n/a Patient's zip code: [address] Is zip code within program service area: [...] Eligible until 07/26/24 Thank you Patient Source: Zxs-mw-Sbayrwv (OON) Discharge Outreach Summary: Spoke with pt's [...] staying hydrated. Patient discharged from [facility]. Discharge date: 07/12/24 Admitted for: Syncope Readmission Risk: n/a Value-Based Contract: ACO Contact: Contact made with patient: Yes Hi, my name is Ellen Gonzalez RN and I am calling from the [facility] on behalf of your Primary Care Provider, [...] to speak with a social work steam frame operator to help give you support for any [...] I will send your request to a crew scheduler who will contact and assist you with [...] Complete Navigation Team box and route to [facility] ([id number]) for scheduling. Education Patient and family educated [...] MA 07/14/2024 12:41 (more content not included)... [facility] 07-12-2024 Note [facility] 05-27-2024 Instructions Alicia Blount MD - 05/27/2024 11:56 AM EDT - Take lorazepam as prescribed; [facility] [place]. - Continue taking Cymbalta as prescribed. - [...] in four months. documented in this encounter [facility] 05-27-2024 Note HNO ID: [id number] Author: ALICIA BLOUNT MD Service: ? Author Type: Physician Type: Progress Notes Filed: 07/04/2024 17:59 Note Text: This note was created using Communication Science. 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 Dada Rodríguez. Mild cataract in L eye- no need for cataract surgery at this time. Continue to follow up the cataract. 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 At this time, we anticipate that [...] care for assistance [facility]. Return to OPD on Sunday11/18/[address] [...] of complication, not (more content not included)... [facility] 05-27-2024 History of Presen t illness Narrative This note was created using Communication Science. 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 Dada Rodríguez. Mild cataract in L eye- no need for cataract surgery at this time. Continue to follow up the cataract. 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 At this time, we anticipate that [...] care for assistance [facility]. Return to OPD on Sunday11/18/[address] [...] at bedtime. (Dr. Genny Munguia refills)) Insulin Stanton, Disposable, (BD ULTRA-FINE FOZIA PEN NEEDLE) 32 [...] mouth once daily. flash glucose scanning reader (BokeccSTYLE DONTRELL 2 READER) flash glucose sensor (FREESTYLE [...] once daily. For 30 days multivitamin-folic acid-biotin (TOLB-CDUQ-VZAIO, OQ-QH-GVTYUD,) 400-2,000 mcg tab Take by mouth. collagen, bovine, 100 % powd Apply to affected area. Cranberry-Vitamin C-Vitamin E (CRANBERRY PLUS VITAMIN C) 140-100 mg cap Patient takes Cranberry with Vitamin C capsule that contains 15,000 mg Cranberry and 100mg Vitamin C Biotin 2,500 mcg cap Nurse reports patient taking 1500 mcg dose once daily (cannot find 1500mcg dose on menu) Miscellaneous [facility] [employer] (E08.40, Z79.4) Diabetes mellitus due [...] (F41.9) - Refilled lorazepam prescription, sent to [facility] in [place] with a fill date of June 05 and added refills to prevent running out before the next appointment. # Essential hypertension (I10) - Blood pressure well-controlled at 120s/60s. - Refilled metoprolol prescription, sent to [facility]. # Diabetes 1.5, managed as type [...] Alicia Blount MD documented in this encounter [facility] 05-01-2024 Telephone encounter Note Noted, agree with ER. Monitor for ER visit and schedule follow-up as needed. [facility] 05-01-2024 Miscellaneous Notes Noted, agree with ER. [...] aches, fatigue. 10. : No. Protocols used: Gjnmdpvw-RMPRX-KE documented in this encounter [facility] 05-01-2024 Telephone encounter Note Patient reports having [...] aches, fatigue. 10. : No. Protocols used: Frjcsymb-BYRWR-LJ [facility] 04-28-2024 Telephone encounter Note Called to [...] floor at Radiology: [address]; [place] [address] * If you need to cancel or reschedule this test or have any questions regarding this test, please call [phone]. [facility] 04-28-2024 Miscellaneous Notes Called to review [...] floor at Radiology: [address]; [place] [address] * If you need to cancel or reschedule this test or have any questions regarding this test, please call [phone]. documented in this encounter [facility] 03-18-2024 Telephone encounter Note Prescription Refill Information [...] mouth daily at 6 am. Mague Tirado [facility] March 18, 2024 2:25 PM [facility] 03-18-2024 Miscellaneous Notes Prescription Refill Information The [...] mouth daily at 6 am. Mague Tirado [facility] March 18, 2024 2:25 PM documented in this encounter [facility] 03-04-2024 Telephone encounter Note Called and left [...] floor at Radiology: [address]; [place] [address] * If you need to cancel or reschedule this test or have any questions regarding this test, please call [phone]. [facility] 03-04-2024 Miscellaneous Notes Called and left [...] floor at Radiology: [address]; [place] [address] * If you need to cancel or reschedule this test or have any questions regarding this test, please call [phone]. documented in this encounter [facility] 02-17-2024 History of Presen t illness Narrative [...] a full evaluation. documented in this encounter [facility] 02-17-2024 Progress note Formatting of t his note might be different from the original. NSR. At OV encouraged to schedule appointment with cardiology. [facility] 02-17-2024 Miscellaneous Notes NSR. At OV encouraged to schedule appointment with cardiology. 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 Dada Rodríguez. Mild cataract in L eye- no need for cataract surgery at this time. Continue to follow up the cataract. 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 At this time, we anticipate that [...] care for assistance with chest tube to [facility]. Return to OPD on Sunday11/18/14 for [...] Lansoprazole, Macrobid [Nitrofurantoin Monohyd/M-Cryst], Metformin, Miconazole, Neosporin [Mlokcxox-Hxbgasrmss-Tekhpddce], Pioglitazone, Protonix [Pantoprazole], Relafen [Nabumetone], Shrimp, and [...] for 180 days. Morning and bedtime Insulin Stanton, Disposable, (BD ULTRA-FINE FOZIA PEN NEEDLE) 32 [...] once daily. For 30 days multivitamin-folic acid-biotin (KIYO-ASHX-LFIIT, RJ-IJ-QWJBZR,) 400-2,000 mcg tab Take by mouth. collagen, [...] abnormality. Dictated by : DO Martin COHN APRN.RESOURCE SPECIALIST documented in this encounter [facility] 01-31-2024 Telephone encounter Note done [facility] 01-31-2024 Miscellaneous Notes done Carotid ultrasounds are done in vascular lab. Pt will need to be scheduled in vas lab. May we please have vascular lab orders placed. US Carotid Arteries [facility] Thank you very much! Yuli Bal RDMS documented in this encounter [facility] 01-31-2024 Telephone encounter Note Carotid ultrasounds are done in vascular lab. Pt will need to be scheduled in vas lab. May we please have vascular lab orders placed. [facility] Carotid Arter[facility] Thank you very much! Yuli Bal RDMS [facility] 01-31-2024 Instructions Clarence Berry APRN.CNS - 01/31/2024 11:02 AM EDT Be sure to drink plenty of fluids, aim for 64 ounces per day. Avoid being out in the severe heat. Wear compression stockings when sitting or standing for long periods of time. Please make an appointment with cardiology. Please wear supportive shoe wear and let your vocational psychologist know if you are not continuing to have ankle or foot discomfort. documented in this encounter [facility] 01-31-2024 History of Presen t illness Narrative [...] Type 1 (Hcc) She was admitted to [facility] June 10 through June 12 for [...] and OT evaluation along with social media intern prior to discharge. Continued on Glucerna shakes [...] at this time. Followed by Dr Munguia [facility] regarding DM. DIABETES MELLITUS: Without report of [...] for 180 days. Morning and bedtime Insulin Stanton, Disposable, (BD ULTRA-FINE FOZIA PEN NEEDLE) 32 [...] mouth once daily. flash glucose scanning reader (BokeccSTYLE DONTRELL 2 READER) flash glucose sensor (FREESTYLE [...] once daily. For 30 days multivitamin-folic acid-biotin (IPQU-XSQQ-CEDSI, WJ-FI-LCNLDF,) 400-2,000 mcg tab Take by mouth. collagen, [...] wear supportive shoe wear and let your vocational psychologist know if you are not continuing to have ankle or foot discomfort. Clarence Berry APRN.CNS Medical Decision Making: Problems: Moderate: 1+ chronic illnesses with change Data: Unique test(s) ordered: 2 Medical Decision Making Level: 3 - Low documented in this encounter [facility] 01-15-2024 Telephone encounter Note The following approved medication requests have been transmitted electronically. Requested Prescriptions Signed Prescriptions Disp Refills LORazepam (ATIVAN) 1 mg tablet 30 tablet 2 Sig: Take 0.5-1 tablets by mouth once daily as needed for up to 90 days. Authorizing Provider: ALICIA BLOUNT MD [facility] 01-15-2024 Miscellaneous Notes The following approved medication [...] you. Marisol Escobedo. documented in this encounter [facility] 01-14-2024 Telephone encounter Note Patient has been [...] Please advise. Thank you. Marisol Escalante Pss. [facility] 12-24-2023 Note Addended by: CLARENCE BERRY on: 12/24/2023 12:33 PM Modules accepted: Orders [facility] 12-24-2023 Miscellaneous Notes Addended by: CLARENCE BERRY [...] Nargis Miller Pss. documented in this encounter [facility] 12-24-2023 Telephone encounter Note Patient has been [...] 01/31/2024 Please advise. Thank you. Nargis Escobedo. [facility] 12-11-2023 Telephone encounter Note Patient given results and verbalized understanding of instructions given. Kasandra Cast LPN [facility] 12-11-2023 Miscellaneous Notes Patient given results and verbalized understanding of instructions given. Kasandra Cast LPN Urine culture reveals bacterial growth. The ATB selected is appropriate. Please complete. Follow up with PCP for continued sx. Please advise patient. documented in this encounter [facility] 12-11-2023 Telephone encounter Note Urine culture reveals bacterial growth. The ATB selected is appropriate. Please complete. Follow up with PCP for continued sx. Please advise patient. 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 Dada Rodríguez. Mild cataract in L eye- no need for cataract surgery at this time. Continue to follow up the cataract. 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 At this time, we anticipate that [...] care for assistance with chest tube to [facility]. Return to OPD on Sunday11/18/14 for [...] Lansoprazole, Macrobid [Nitrofurantoin Monohyd/M-Cryst], Metformin, Miconazole, Neosporin [Ctrtdrai-Lmxswzhicy-Mdckfvjrk], Pioglitazone, Protonix [Pantoprazole], Relafen [Nabumetone], Shrimp, and [...] for 180 days. Morning and bedtime Insulin Stanton, Disposable, (BD ULTRA-FINE FOZIA PEN NEEDLE) 32 [...] once daily. For 30 days multivitamin-folic acid-biotin (HRPO-IXDJ-CRVWX, OG-RD-NLLSPU,) 400-2,000 mcg tab Take by mouth. collagen, [...] Patient agreeable to treatment plan. Antoinette Agrawal APRN.RESOURCE SPECIALIST documented in this encounter [facility] 10-01-2023 History of Presen t illness Narrative This note was created using Communication Science. 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 Dada Rodríguez. Mild cataract in L eye- no need for cataract surgery at this time. Continue to follow up the cataract. 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 At this time, we anticipate that [...] care for assistance with chest tube to [facility]. Return to OPD on Sunday11/18/14 for [...] for 180 days. Morning and bedtime Insulin Stanton, Disposable, (BD ULTRA-FINE FOZIA PEN NEEDLE) 32 [...] once daily. For 30 days multivitamin-folic acid-biotin (VPFY-CUEV-NPEIM, KQ-JG-UJAXPI,) 400-2,000 mcg tab Take by mouth. collagen, [...] with dinner. Adjust as directed. (Dr. Genny Mugnuia refjere) Also has SSI. insulin glargine (LANTUS [...] Abs Lymph 1.00 - 4.00 k/uL 1.79 Slope% % 10.0 Abs Slope <0.87 k/uL 0.60 Eosin% % 4.0 Abs [...] Alicia Blount MD documented in this encounter [facility] 09-28-2023 Miscellaneous Notes Filed order plus Vit D Patient at [facility] now, lab orders and she is wanting to still have them complete. HGBA1c, CMP, CBC, and lipd panel were previously ordered. Patient is waiting at lab now. Please advise. documented in this encounter [facility] 07-21-2023 Miscellaneous Notes Spoke with pt and [...] Rupali Muñoz Pss documented in this encounter [facility] 07-02-2023 History of Presen t illness Narrative [...] Dehydration Diabetes 1.5, Managed As Type 1 ([facility]) She was admitted to [facility] June 10 through June 12 for [...] and OT evaluation along with social media intern prior to discharge. Continued on Glucerna shakes [...] Genny Munguia refills) Also has SSI. Insulin Stanton, Disposable, (BD ULTRA-FINE FOZIA PEN NEEDLE) 32 [...] once daily. For 30 days multivitamin-folic acid-biotin (ZNLC-OXNL-VVLHT, NQ-EC-BZMJZR,) 400-2,000 mcg tab Take by mouth. Insulin Stanton, Disposable, (EASY TOUCH) 31 gauge x 3/16 Use 1 needle for each dose. 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 Dada Rodríguez. Mild cataract in L eye- no need for cataract surgery at this time. Continue to follow up the cataract. 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 At this time, we anticipate that [...] Abs Lymph 1.00 - 4.00 k/uL 1.79 Slope% % 10.0 Abs Slope <0.87 k/uL 0.60 Eosin% % 4.0 Abs [...] 799.3, ICD10: R53.81 (primary diagnosis) Admission TCU, [facility] following RN, PT Endorse walking hourly with walker as able. 2. Diabetes 1.5, managed as type 1 (HCC) - ICD9: 250.00, ICD10: E13.[address] Genny Munugia 3. Sepsis, due to unspecified organism, unspecified [...] 4 - Moderate documented in this encounter [facility] 06-29-2023 Miscellaneous Notes Can review [...] problems may continue unchanged. Isabella nurse @ [facility] calling with plan of care. Nursing will [...] If medication change, please call Isabella @ [phone]. Jaqueline Jones RN documented in this encounter [facility] 06-29-2023 Miscellaneous Notes rosina Sanchez Yury PT @ [facility] calling with plan of care. PT will see patient 2 x/week for three weeks for functional mobility. If agree, no call back needed. Jaqueline Jones RN documented in this encounter [facility] 06-06-2023 Note HNO ID: [id number] Author: Simran Ritchie, MANNY Service: Nursing Author Type: Registered Nurse Type: Nursing Progress Note Filed: 06/06/2023 11:19 AM Note Text: Other: pt ready for OR, call light in reach, called to bedside. 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 Dada Rodríguez. Mild cataract in L eye- no need for cataract surgery at this time. Continue to follow up the cataract. 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 At this time, we anticipate that [...] care for assistance with chest tube to [facility]. Return to OPD on Sunday11/18/14 for [...] EGD TRANSORAL BIOPSY SINGLE/MULTIPLE 11/23/2011 EGD W/O [facility] SPEC VARICIES INJ 12/21/2021 EGD W/O [...] 1 tablet by mouth once daily. Insulin Stanton, Disposable, (BD ULTRA-FINE FOZIA PEN NEEDLE) 32 [...] once daily. For 30 days multivitamin-folic acid-biotin (MNCS-WYQB-ALQXO, HI-GR-XBLVDC,) 400-2,000 mcg tab Take by mouth. CRANBERRY collagen, bovine, 100 % powd Apply to affected area. Insulin Stanton, Disposable, (EASY TOUCH) 31 gauge x 3/16 [...] Iodine, Lansoprazole, Macrobid [Nitrofurantoin Monohyd/M-Cryst], Metformin, Neosporin [Nkfavjml-Iqzxegkqdi-Ofsllnylx], Protonix [Pantoprazole], Relafen [Nabumetone], Shrimp, and Actos [...] entered by the nurse and reviewed by ia Nursing Notes: Debra Couch RN 06/04/2023 10:04 [...] will be scheduled for the procedure at [facility]. She chooses to have procedure [...] TIME: 11:56 AM documented in this encounter [facility] 06-06-2023 Nurse Note Other: pt ready for OR, call light in reach, called to bedside. documented in this encounter [facility] 06-05-2023 Miscellaneous Notes Pt called [...] high than low. 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 Dada Rodríguez. Mild cataract in L eye- no need for cataract surgery at this time. Continue to follow up the cataract. 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 At this time, we anticipate that [...] care for assistance with chest tube to [facility]. Return to OPD on Sunday11/18/14 for [...] 1 tablet by mouth once daily. Insulin Stanton, Disposable, (BD ULTRA-FINE FOZIA PEN NEEDLE) 32 [...] once daily. For 30 days multivitamin-folic acid-biotin (TOXU-PUMU-OXTST, EL-JI-OWFVGG,) 400-2,000 mcg tab Take by mouth. CRANBERRY collagen, bovine, 100 % powd Apply to affected area. Insulin Stanton, Disposable, (EASY TOUCH) 31 gauge x 3/16 [...] Iodine, Lansoprazole, Macrobid [Nitrofurantoin Monohyd/M-Cryst], Metformin, Neosporin [Dwfqzwqa-Ljkimpkdfa-Rrjuwcukj], Protonix [Pantoprazole], Relafen [Nabumetone], Shrimp, and Actos [...] entered by the nurse and reviewed by ia Nursing Notes: Debra Couch RN 06/04/2023 10:04 [...] will be scheduled for the procedure at [facility]. She chooses to have procedure [...] Radha Balderrama MD documented in this encounter [facility] 06-04-2023 Nurse Note REVIEW OF [...] Debra Couch RN documented in this encounter [facility] 05-31-2023 Instructions Clarence Berry APRN.COLLEGE BASKETBALL COACH - 05/31/2023 9:53 AM EDT Consider vaccines: Tdap, influenza, Covid booster, hepatitis B vaccine. 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 Due for EGD in 2023 or 2024. documented in this encounter [facility] 05-31-2023 History of Presen t [...] yet had infusion. Followed by Dr Bran flat screen worker. History of carcinoid bronchial adenoma, left, s/p [...] No sensory deficit. Motor: No weakness. Coordination: Znedcw-Aavi-Rphznq Test normal. Gait: Gait normal. ALLERGIES Allergen [...] 1 tablet by mouth once daily. Insulin Stanton, Disposable, (BD ULTRA-FINE FOZIA PEN NEEDLE) 32 [...] once daily. For 30 days multivitamin-folic acid-biotin (HSRS-BPMB-TBTRQ, AM-QJ-KOAWHV,) 400-2,000 mcg tab Take by mouth. CRANBERRY collagen, bovine, 100 % powd Apply to affected area. 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 Dada Rodríguez. Mild cataract in L eye- no need for cataract surgery at this time. Continue to follow up the cataract. 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 At this time, we anticipate that [...] care for assistance with chest tube to [facility]. Return to OPD on Sunday11/18/14 for [...] Abs Lymph 1.00 - 4.00 k/uL 1.79 Slope% % 10.0 Abs Slope <0.87 k/uL 0.60 Eosin% % 4.0 Abs [...] C7A.090 Stable, no recent exacerbation. Followed by flat screen worker 3. Encounter for immunization - ICD9: V03.89, ICD10: Z23 - [facility]INTED [facility] INSTRUCTIONS - [facility] PRINTED PHARMACY INSTRUCTIONS - INFLUENZA VACCINE, PRSV FREE, AGE 65+ YR, HIGH DOSE, QUADRIVALENT (FLUZONE HIGH-DOSE) - [employer] COVID-19 VACCINE (2022- SEASON) AGE 12+ YR [...] 4 - Moderate documented in this encounter [facility] 04-08-2023 Navya Rios APRN.CNP - 04/08/2023 12:58 PM EDT For ear pain- Flonase nasal spray daily. Can also take over the counter analgesics such as Tylenol or ibuprofen unless you have been told otherwise documented in this encounter [facility] 04-08-2023 History of Presen t [...] Navya Thrasher APRN.CNP documented in this encounter [facility] 04-06-2023 Miscellaneous Notes Spoke with [...] approved to continue Call back at phone [phone] Pt called to let you know her [...] Chelsy Valverde LPN documented in this encounter [facility] 02-08-2023 Miscellaneous Notes Duplicate request. [...] advise. ARTURO Silva documented in this encounter [facility] 01-25-2023 Miscellaneous Notes Orders placed as requested. Quiana Thrasher APRN.NEMESIO Pt at [facility] now lab orders due. Please file. Pt has appt 01/29/23 with pcp documented in this encounter [facility] 01-01-2023 History of Presen t illness Narrative [...] 2023 11:34 AM documented in this encounter [facility] 10-17-2022 History of Presen t illness Narrative [...] head on the floor. Notes jaw and moravian hurt. Impression was no sign of fracture [...] taking naproxen or Tylenol currently. Has used Little Birch intermittently which has helped with pain. She [...] her arms. Celebrex does help. Does use Little Birch as needed for breakthrough pain. Using pressure [...] No sensory deficit. Motor: No weakness. Coordination: Uorntl-Mfky-Fhafuk Test normal. Gait: Gait normal. ALLERGIES Allergen [...] Actos [Pioglitazone* Swelling flash glucose scanning reader (BokeccSTZulahoo DONTRELL 2 READER)^^Disp: ^Rfl: flash glucose sensor [...] mouth once daily.^Disp: 90 tablet^Rfl: 3 Insulin Stanton, Disposable, (BD ULTRA-FINE FOZIA PEN NEEDLE) 32 [...] daily. 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 Dada Rodríguez. Mild cataract in L eye- no need for cataract surgery at this time. Continue to follow up the cataract. 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 At this time, we anticipate that [...] care for assistance with chest tube to [facility]. Return to OPD on Sunday11/18/14 for [...] MG-ACETAMINOPHEN 325 MG TABLET 3. Contusion of moravian region, initial encounter - ICD9: 920, ICD10: [...] arousable. Improved pain control with Celebrex and Little Birch for breakthrough. Ovot-lcz-yismqvu constipation remedy advised when taking hydrocodone. She defers physical therapy for now, prefers to see a chiropractor first. ER for any severe or concerning symptoms Clarence Berry APRN.COLLEGE BASKETBALL COACH Medical Decision Making: Problems: Moderate: Acute illness with systemic symptoms Risk: Moderate: Drug management Medical Decision Making Level: 4 - Moderate documented in this encounter [facility] 10-11-2022 Miscellaneous Notes Ana Ivory [place]: [email or web address] - GISELE - Rx #: [id number] help? Call us at Outcome Approvedtoday GISELE Case: [id number], Status: Approved, Coverage Starts on: 08/13/2022 12:00:00 AM, Coverage Ends on: 08/12/2023 12:00:00 AM. Questions? Contact . Pharmacy notified. Ana Ivory (Star[place]: [email or web address]) - [id number] HYDROcodone-Acetaminophen 5-325MG tablets Status: GISELE Request Created: October 10, 2022 [id number] Sent: October 11, 2022 documented in this encounter [facility] 10-10-2022 History of Presen t illness Narrative [...] 2022 2:32 PM documented in this encounter [facility] 10-10-2022 History of Presen t illness Narrative [...] head on the floor. Notes jaw and moravian hurt. Impression was no sign of fracture [...] taking naproxen or Tylenol currently. Has used Little Birch intermittently which has helped with pain. She [...] No sensory deficit. Motor: No weakness. Coordination: Yamkoc-Mmsm-Oscody Test normal. Gait: Gait normal. ALLERGIES Allergen [...] mouth once daily.^Disp: 90 tablet^Rfl: 3 Insulin Stanton, Disposable, (BD ULTRA-FINE FOZIA PEN NEEDLE) 32 [...] daily. 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 Dada Rodríguez. Mild cataract in L eye- no need for cataract surgery at this time. Continue to follow up the cataract. 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 At this time, we anticipate that [...] care for assistance with chest tube to [facility]. Return to OPD on Sunday11/18/14 for [...] MG-ACETAMINOPHEN 325 MG TABLET 3. Contusion of moravian region, initial encounter - ICD9: 920, ICD10: [...] needed for breakthrough pain and at bedtime. Fnax-ykz-zzasysj constipation remedy advised when taking hydrocodone. ER for any severe or concerning symptoms Clarence Berry APRN.COLLEGE BASKETBALL COACH Medical Decision Making: Problems: Moderate: Acute illness with systemic symptoms Data: Unique test(s) ordered: 1 Risk: Moderate: Drug management Medical Decision Making Level: 4 - Moderate documented in this encounter [facility] 09-30-2022 Instructions Alicia Blount MD - 09/30/2022 10:36 AM EST Decrease supper time insulin since having lows under 70--try decreasing to 20 units then titrate back up if sugar going over 180 at bedtime. Goal in AM is sugar under 150. Nonfasting sugars--under 180 documented in this encounter [facility] 09-30-2022 History of Presen t illness Narrative Images from the original note were not included. This note was created using Communication Science. Subjective Ana Ivory is a 82 year [...] floor. Right side of jaw hurts and moravian. Hurts a little to chew. 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 Dada Rodríguez. Mild cataract in L eye- no need for cataract surgery at this time. Continue to follow up the cataract. 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 At this time, we anticipate that [...] mouth daily at bedtime. As directed Insulin Stanton, Disposable, (BD ULTRA-FINE FOZIA PEN NEEDLE) 32 [...] once daily. For 30 days multivitamin-folic acid-biotin (LCOI-VFBD-YERPJ, TM-RQ-KPVLLY,) 400-2,000 mcg tab Take by mouth. CRANBERRY collagen, bovine, 100 % powd Apply to affected area. insulin glargine (LANTUS SOLOSTAR U-100 INSULIN) 100 unit/mL (3 mL) Inject 18 Units subcutaneously daily at bedtime. (Dr. Genny Munguia refills) (Patient taking differently: Inject 20 Units subcutaneously daily at bedtime. (Dr. Genny Munguia refills)) Insulin Stanton, Disposable, (EASY TOUCH) 31 gauge x 3/16 [...] Don) (Patient not taking: No sig reported) ITT EXIM[employer]aneous [employer] [facility] (E08.40, Z79.4) Diabetes mellitus due [...] long-term current use of insulin ([facility]) E08.40 Z79.4 2. Contusion of right foot, initial encounter S90.31XA HYDROcodone-acetaminophen (NORCO) 5-325 mg per tablet plantar toes 3. Contusion of moravian region, initial encounter S00.83XA HYDROcodone-acetaminophen (NORCO) 5-325 [...] the date of the service which included tfrs-kn-yyks patient care, completing clinical documentation, obtaining and/or reviewing separately obtained history, performing a medically appropriate examination, counseling and educating the patient/family/caregiver, ordering medications, tests, or procedures, and communicating results to the patient/family/caregiver. Alicia Blount MD documented in this encounter [facility] 08-21-2022 Miscellaneous Notes Patient notified [...] before next appointment. documented in this encounter [facility] 08-15-2022 Procedure note [facility] 08-02-2022 Miscellaneous Notes Filed order Patient is at [facility] today requesting lab orders. Lab is stating they are not able to pull these order until NEXT July. Please review and file. documented in this encounter [facility] 06-28-2022 Miscellaneous Notes Spoke with [...] this medication sent to [facility] in [place]. Please call patient when complete. Patient is requesting to go back on the Gabapentin rather then refill the lyrica. She states she was on the lyrica for some time switched to the gabapentin and then back to the lyrica but feels gabapentin does better. She uses [facility] in [place]. documented in this encounter [facility] 06-16-2022 Miscellaneous Notes Faxed ECHO results to Dr. Bran, [facility] Pulm ([phone]), and Dr. Munguia, [facility] Endo ([phone]) per patient request. documented in this encounter [facility] 06-16-2022 Miscellaneous Notes Patient has [...] Eris Keene RN documented in this encounter [facility] 05-31-2022 Miscellaneous Notes Noted Patient returned call and went over notes below from Dr Blount, Printed copy of ECHO and faxed to Dr Bran [phone] genny Munguia [phone]. Patient said she will see what those [...] ejection fraction. If she prefers to see rolled glass crosscutter in town, can go to [facility] since goes to providers at [facility] already. If she has had no acute changes in SOB or swelling and wants to wait to discuss at July appointment, that is fine too unless Dr. Munguia or Dr. Bran think she needs work up sooner than then. Patient calling she had appt today with Dr Genny Munguia ,[facility]. Dr Munguia wanted patient to call [...] done? Please advise documented in this encounter [facility] 05-17-2022 Miscellaneous Notes Patient notified.Suma Shepard LPN Let patient know their covid19/influenza test was negative. documented in this encounter [facility] 05-16-2022 Instructions Kaci Savage APRN.NEMESIO - 05/16/2022 [...] virtual appointment or schedule an appointment with [facility]. - Follow-up with your PCP in 3-5 days if symptoms have not improved or sooner if symptoms worsen - Discussed red flags and need for immediate medical evaluation if any occur. - Discussed supportive care treatment with fluids, rest and analgesia. - Discussed expected course of illness Kaci Savage APRN.RESOURCE SPECIALIST Beginning Home Isolation Isolation is used to [...] to your local emergency facility: Notify the cold mill operator that you are seeking care for [...] concerning to you. 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 Dada Rodríguez. Mild cataract in L eye- no need for cataract surgery at this time. Continue to follow up the cataract. 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 At this time, we anticipate that [...] Iodine, Lansoprazole, Macrobid [Nitrofurantoin Monohyd/M-Cryst], Metformin, Neosporin [Xhphtvsn-Zegvkaqkev-Aeuzbbeca], Protonix [Pantoprazole], Relafen [Nabumetone], Shrimp, and Actos [...] daily. For 30 days^Disp: ^Rfl: multivitamin-folic acid-biotin (NWBO-WFHB-SZJPK, WY-SD-ZPHQOB,) 400-2,000 mcg tab^Take by mouth.^Disp: ^Rfl: CRANBERRY^ ^Disp: ^Rfl: collagen, bovine, 100 % powd^Apply to affected area.^Disp: ^Rfl: Insulin Stanton, Disposable, (EASY TOUCH) 31 gauge x 3/16^Use [...] virtual appointment or schedule an appointment with [facility]. - Follow-up with your PCP in 3-5 days if symptoms have not improved or sooner if symptoms worsen - Discussed red flags and need for immediate medical evaluation if any occur. - Discussed supportive care treatment with fluids, rest and analgesia. - Discussed expected course of illness Kaci Savage APRN.RESOURCE SPECIALIST documented in this encounter [facility] 05-15-2022 Miscellaneous Notes PATIENT NOTIFIED [...] Jaqueline Jones RN documented in this encounter [facility] 05-02-2022 History of Presen t [...] daily. For 30 days^Disp: ^Rfl: multivitamin-folic acid-biotin (DYFQ-SLRZ-ENKWB, GD-TT-ZHSPTB,) 400-2,000 mcg tab^Take by mouth.^Disp: ^Rfl: CRANBERRY^ ^Disp: ^Rfl: collagen, bovine, 100 % powd^Apply to affected area.^Disp: ^Rfl: insulin glargine (LANTUS SOLOSTAR U-100 INSULIN) 100 unit/mL (3 mL)^Inject 18 Units subcutaneously daily at bedtime. (Dr. Genny funes)^Disp: ^Rfl: (Patient taking differently: Inject 20 Units subcutaneously daily at bedtime. (Dr. 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 Dada Rodríguez. Mild cataract in L eye- no need for cataract surgery at this time. Continue to follow up the cataract. 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 At this time, we anticipate that [...] care for assistance with chest tube to [facility]. Return to OPD on Sunday11/18/14 for [...] Osteoporosis Less than or equal to -2.5 Home Energy Consultant Supervisor: ABHILASH Transcribe Date/Time: Apr 03 2022 [...] activity was identified. 05/02/2022 by Clarence Berry APRN.COLLEGE BASKETBALL COACH - LORAZEPAM 1 MG TABLET 3. Encounter for immunization - ICD9: V03.89, ICD10: Z23 - INFLUENZA SEASONAL QUADRIVALENT HIGH DOSE AGE 65+ Clarence Berry APRN.CNS Medical Decision Making: Problems: Low: Acute, uncomplicated illness or injury Data: Independent interpretation of test from other physician/QHCP Risk: Moderate: Drug management Medical Decision Making Level: 4 - Moderate documented in this encounter [facility] 05-02-2022 Instructions Clarence Berry APRN.COLLEGE BASKETBALL COACH - 05/02/2022 12:25 PM EDT Check with your insurance regarding coverage of prolia or reclast for osteoporosis documented in this encounter [facility] 04-19-2022 Miscellaneous Notes Spoke with pt and information listed below given. Pt verbalizes understanding. Results were given. Pt requested an apt to discuss medication options. Pt requested a copy of report and results be mailed to her. Done. Chelsy Valverde LPN See my result note Pt calling for Bone Density results. Please advise pt. Chelsy Valverde LPN documented in this encounter [facility] 04-03-2022 History of Presen t [...] 2022 9:30 AM documented in this encounter [facility] 03-31-2022 Instructions Alicia Blount MD - 03/31/2022 [...] usual activities immediately. documented in this encounter [facility] 03-31-2022 History of Presen t illness Narrative This note was created using Communication Science. 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 Dada Rodríguez. Mild cataract in L eye- no need for cataract surgery at this time. Continue to follow up the cataract. 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 At this time, we anticipate that [...] care for assistance with chest tube to [facility]. Return to OPD on Sunday11/18/14 for [...] once daily. For 30 days multivitamin-folic acid-biotin (TCHA-XBJP-WJRDL, PP-LA-IAWFGQ,) 400-2,000 mcg tab Take by mouth. CRANBERRY [...] 1 tablet by mouth once daily. Insulin Stanton, Disposable, (EASY TOUCH) 31 gauge x 3/16 [...] Alicia Blount MD documented in this encounter [facility] 01-30-2022 Instructions Anu Pablo PA-C [...] or other healthcare professional such as an net trainer may be all that is necessary [...] has gone away. 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 Dada Rodríguez. Mild cataract in L eye- no need for cataract surgery at this time. Continue to follow up the cataract. 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 At this time, we anticipate that [...] Iodine, Lansoprazole, Macrobid [Nitrofurantoin Monohyd/M-Cryst], Metformin, Neosporin [Sjvqbosb-Hxgsxyoqkk-Fwjleioax], Protonix [Pantoprazole], Relafen [Nabumetone], Shrimp, and Actos [...] once daily. For 30 days multivitamin-folic acid-biotin (RMUU-EPLV-FCIRL, AA-GH-MDMEZI,) 400-2,000 mcg tab Take by mouth. CRANBERRY [...] 1 tablet by mouth once daily. Insulin Stanton, Disposable, (EASY TOUCH) 31 gauge x 3/16 [...] by mouth twice daily. Miscellaneous [facility] (E08.40, Z79.4) Diabetes mellitus due [...] Anu Pablo PA-C documented in this encounter [facility] 01-13-2022 Miscellaneous Notes Pt called [...] Coby Reynolds RN documented in this encounter [facility] 01-08-2022 Miscellaneous Notes Okayed Patient has been identified by name and date of : Yes Last office visit in this department: 12-02 RX INSTRUCTIONS: Patient aware RX will be sent to pharmacy. No need to notify patient. Patient phones requesting refills as follows: No medications selected for refill. Please review and advise. Meche James documented in this encounter [facility] 01-02-2022 Miscellaneous Notes Patient has [...] advise. Clara Richmond documented in this encounter [facility] 12-21-2021 Nurse Note [id number] pt to ASCU, up to BR, incontinent of stool. Jennifer care and new brief given. Pt ambulates with assist. updated & @ BS. documented in this encounter [facility] 12-21-2021 History and physical note [...] for internal providers or letter via the [employer] for external providers. Ana Ivory [...] letter in the mail from insurance company [email or web address] no longer covered. 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 Dada Rodríguez. Mild cataract in L eye- no need for cataract surgery at this time. Continue to follow up the cataract. 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 At this time, we anticipate that [...] care for assistance with chest tube to [facility]. Return to OPD on Sunday11/18/14 for [...] once daily. For 30 days multivitamin-folic acid-biotin (MQOY-VPAF-HBUHC, VZ-QZ-FMVBXC,) 400-2,000 mcg tab Take by mouth. collagen, [...] tablet by mouth once daily. CRANBERRY Insulin Stanton, Disposable, (EASY TOUCH) 31 gauge x 3/16 [...] twice daily. (Dr Don) Miscellaneous [facility] (E08.40, Z79.4) Diabetes mellitus due [...] Education Completed: Not specified Marital Status: to [facility] with 4 children SOCIAL HISTORY Social [...] with more than 50% of the total jqea-ti-hvrr time of the visit in counseling / coordination of care. I have confirmed and edited as necessary, the PFSH and ROS obtained by others. June Limon APRN.RESOURCE SPECIALIST UPDATED HISTORY AND PHYSICAL EXAMINATION SERVICE DATE: [...] TIME: 7:10 AM documented in this encounter [facility] 12-13-2021 Miscellaneous Notes Patient was [...] Coby Reynolds RN documented in this encounter [facility] 12-01-2021 Miscellaneous Notes PDMP website checked and validated. All prescriptions have been APPROPRIATELY filled. No suspicious activity was identified. 12/01/2021 by Clarence Berry APRN.COLLEGE BASKETBALL COACH Last seen pcp 11/22/21. Next 03/31/22. Patient [...] Libertad Burdick Pss documented in this encounter [facility] 11-22-2021 Instructions Alicia Blount MD - 11/22/2021 1:28 PM EDT Probiotics: Align, Culturelle, Florastor documented in this encounter [facility] 11-22-2021 History of Presen t [...] Covid Booster #2 Swelling even with stockings. Dunlap better but still would get tight. No prior water pills. Had episode of leaking when jeans caused thinned area and legs swollen. On SSI now. Reflux noted. Has adjustable bed. 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 aDda Rodríguez. Mild cataract in L eye- no need for cataract surgery at this time. Continue to follow up the cataract. 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 At this time, we anticipate that [...] care for assistance with chest tube to [facility]. Return to OPD on Sunday11/18/14 for [...] once daily. For 30 days multivitamin-folic acid-biotin (LNKB-VFNZ-VXIQF, XZ-VA-QVVNFM,) 400-2,000 mcg tab Take by mouth. collagen, bovine, 100 % powd Apply to affected area. atorvastatin (LIPITOR) 20 mg tablet Take 1 tablet by mouth once daily. insulin glargine (LANTUS SOLOSTAR U-100 INSULIN) 100 unit/mL (3 mL) Inject 18 Units subcutaneously daily at bedtime. (Dr. Genny Munguia refills) sertraline (ZOLOFT) 50 mg tablet Take 1 tablet by mouth once daily. Insulin Stanton, Disposable, (EASY TOUCH) 31 gauge x 3/16 [...] Reported on 09/19/2021 ) Miscellaneous [facility] (E08.40, Z79.4) Diabetes mellitus due [...] Alicia Blount MD documented in this encounter [facility] 06-03-2021 History of Presen t illness Narrative [...] 2021 12:54 PM documented in this encounter [facility] 11-14-2014 History of Past i llness Narrative [...] Overview: Ana Ivory is and lives in [place], [place]. At this time, we anticipate that [...] reflux 10/08/2014 10/08/2014 Cataract 04/17/2013 09/15/2016 Overview: [facility] [place], Dr. Dada Rodríguez. Mild cataract in L [...] of this encounter (statuses as of 12/01/2021) [facility]2015 History of Past illness Narrative* [...] Overview: Ana Ivory is and lives in [place], [place]. At this time, we anticipate that [...] care for assistance with chest tube to [facility]. Return to [facility] on Sunday11/18/[address] removal . Esophageal reflux 10/08/2014 10/08/2014 Cataract 04/17/2013 09/15/2016 Overview: [facility] [place], Dr. Dada Rodríguez. Mild cataract in L [...] of this encounter (statuses as of 12/13/2021) [facility] History of Past illness Narrative* [...] Overview: Ana Ivory is and lives in [place], [place]. At this time, we anticipate that [...] care for assistance with chest tube to [facility]. Return to [facility]PD on Sunday11/18/[address] removal . Esophageal reflux 10/08/2014 10/08/2014 Cataract 04/17/2013 09/15/2016 Overview: [facility], Dr. Dada Rodríguez. Mild cataract in [...] of this encounter (statuses as of 12/22/2021) [facility] History of Past illness Narrative* [...] Overview: Ana Ivory is and lives in [place], [place]. At this time, we anticipate that [...] care for assistance with chest tube to [facility]. Return to [facility] on Sunday11/18/[address] removal . Esophageal reflux 10/08/2014 10/08/2014 Cataract 04/17/2013 09/15/2016 Overview: [facility] [place], Dr. Dada Rodríguez. Mild cataract in L [...] of this encounter (statuses as of 01/02/2022) [facility] History of Past illness Narrative* [...] Overview: Ana Ivory is and lives in [place], [place]. At this time, we anticipate that [...] reflux 10/08/2014 10/08/2014 Cataract 04/17/2013 09/15/2016 Overview: [facility] [place], Dr. Dada Rodríguez. Mild cataract in L [...] of this encounter (statuses as of 01/08/2022) [facility] History of Past illness Narrative* [...] Overview: Ana Ivory is and lives in [place], [place]. At this time, we anticipate that [...] reflux 10/08/2014 10/08/2014 Cataract 04/17/2013 09/15/2016 Overview: [facility], Dr. Dada Rodríguez. Mild cataract in [...] of this encounter (statuses as of 01/13/2022) [facility] History of Past illness Narrative* [...] Overview: Ana Ivory is and lives in [place], [place]. At this time, we anticipate that [...] care for assistance with chest tube to [facility]. Return to [facility] on Sunday11/18/[address] removal . Esophageal reflux 10/08/2014 10/08/2014 Cataract 04/17/2013 09/15/2016 Overview: [facility] [place], Dr. Dada Rodríguez. Mild cataract in L [...] of this encounter (statuses as of 01/30/2022) [facility] History of Past illness Narrative* [...] Overview: Ana Ivory is and lives in [place], [place]. At this time, we anticipate that [...] reflux 10/08/2014 10/08/2014 Cataract 04/17/2013 09/15/2016 Overview: [facility] [place], Dr. Dada Rodríguez. Mild cataract in L [...] of this encounter (statuses as of 02/05/2022) [facility] History of Past illness Narrative* [...] Overview: Ana Ivory is and lives in [place], [place]. At this time, we anticipate that [...] care for assistance with chest tube to [facility]. Return to [facility]PD on Sunday11/18/[address] removal . Esophageal reflux 10/08/2014 10/08/2014 Cataract 04/17/2013 09/15/2016 Overview: [facility] [place], Dr. Dada Rodríguez. Mild cataract in L [...] of this encounter (statuses as of 04/04/2022) [facility] History of Past illness Narrative* [...] Overview: Ana Ivory is and lives in [place], [place]. At this time, we anticipate that [...] care for assistance with chest tube to [facility]. Return to [facility] on Sunday11/18/[address] removal . Esophageal reflux 10/08/2014 10/08/2014 Cataract 04/17/2013 09/15/2016 Overview: [facility] [place], Dr. Dada Rodríguez. Mild cataract in L [...] of this encounter (statuses as of 04/19/2022) [facility] History of Past illness Narrative* [...] Overview: Ana Ivory is and lives in [place], [place]. At this time, we anticipate that [...] care for assistance with chest tube to [facility]. Return to [facility]PD on Sunday11/18/[address] removal . Esophageal reflux 10/08/2014 10/08/2014 Cataract 04/17/2013 09/15/2016 Overview: [facility], Dr. Dada Rodríguez. Mild cataract in [...] of this encounter (statuses as of 05/02/2022) [facility] History of Past illness Narrative* [...] Overview: Ana Ivory is and lives in [place], [place]. At this time, we anticipate that [...] reflux 10/08/2014 10/08/2014 Cataract 04/17/2013 09/15/2016 Overview: [facility] [place], Dr. Dada Rodríguez. Mild cataract in L [...] of this encounter (statuses as of 05/15/2022) [facility] History of Past illness Narrative* [...] Overview: Ana Ivory is and lives in [place], [place]. At this time, we anticipate that [...] care for assistance with chest tube to [facility]. Return to [facility]PD on Sunday11/18/[address] . Esophageal reflux 10/08/2014 10/08/2014 Cataract 04/17/2013 09/15/2016 Overview: [facility] [place], Dr. Dada Rodríguez. Mild cataract in L [...] of this encounter (statuses as of 05/16/2022) [facility] History of Past illness Narrative* [...] Overview: Ana Ivory is and lives in [place], [place]. At this time, we anticipate that [...] reflux 10/08/2014 10/08/2014 Cataract 04/17/2013 09/15/2016 Overview: [facility] [place], Dr. Dada Rodríguez. Mild cataract in L [...] of this encounter (statuses as of 05/17/2022) [facility] History of Past illness Narrative* [...] Overview: Ana Ivory is and lives in [place], [place]. At this time, we anticipate that [...] care for assistance with chest tube to [facility]. Return to [facility]PD on Sunday11/18/[address] removal . Esophageal reflux 10/08/2014 10/08/2014 Cataract 04/17/2013 09/15/2016 Overview: [facility], Dr. Dada Rodríguez. Mild cataract in [...] of this encounter (statuses as of 05/30/2022) [facility] History of Past illness Narrative* [...] Overview: Ana Ivory is and lives in [place] At this time, we anticipate that [...] care for assistance with chest tube to [facility]. Return to [facility] on Sunday11/18/[address] removal . Esophageal reflux 10/08/2014 10/08/2014 Cataract 04/17/2013 09/15/2016 Overview: [facility] [place], Dr. Dada Rodríguez. Mild cataract in L [...] of this encounter (statuses as of 05/31/2022) [facility] History of Past illness Narrative* [...] Overview: Ana Ivory is and lives in [place], [place]. At this time, we anticipate that [...] care for assistance with chest tube to [facility]. Return to [facility]PD on Sunday11/18/[address] removal . Esophageal reflux 10/08/2014 10/08/2014 Cataract 04/17/2013 09/15/2016 Overview: [facility] [place], Dr. Dada Rodríguez. Mild cataract in L [...] of this encounter (statuses as of 06/16/2022) [facility] History of Past illness Narrative* [...] Overview: Ana Ivory is and lives in [place], [place]. At this time, we anticipate that [...] care for assistance with chest tube to [facility]. Return to [facility] on Sunday11/18/[address] removal . Esophageal reflux 10/08/2014 10/08/2014 Cataract 04/17/2013 09/15/2016 Overview: [facility] [place], Dr. Dada Rodríguez. Mild cataract in L [...] of this encounter (statuses as of 06/16/2022) [facility] History of Past illness Narrative* [...] Overview: Ana Ivory is and lives in [place], [place]. At this time, we anticipate that [...] care for assistance with chest tube to [facility]. Return to [facility] on Sunday11/18/[address] removal . Esophageal reflux 10/08/2014 10/08/2014 Cataract 04/17/2013 09/15/2016 Overview: [facility] [place], Dr. Dada Rodríguez. Mild cataract in L [...] of this encounter (statuses as of 06/28/2022) [facility] History of Past illness Narrative* [...] Overview: Ana Ivory is and lives in [place], [place]. At this time, we anticipate that [...] reflux 10/08/2014 10/08/2014 Cataract 04/17/2013 09/15/2016 Overview: [facility] [place], Dr. Dada Rodríguez. Mild cataract in L [...] of this encounter (statuses as of 08/02/2022) [facility] History of Past illness Narrative* [...] Overview: Ana Ivory is and lives in [place], [place]. At this time, we anticipate that [...] reflux 10/08/2014 10/08/2014 Cataract 04/17/2013 09/15/2016 Overview: [facility] [place], Dr. Dada Rodríguez. Mild cataract in L [...] of this encounter (statuses as of 08/23/2022) [facility] History of Past illness Narrative* [...] Overview: Ana Ivory is and lives in [place], [place]. At this time, we anticipate that [...] care for assistance with chest tube to [facility]. Return to [facility] on Sunday11/18/[address] removal . Esophageal reflux 10/08/2014 10/08/2014 Cataract 04/17/2013 09/15/2016 Overview: [facility] [place], Dr. Dada Rodríguez. Mild cataract in L [...] of this encounter (statuses as of 09/30/2022) [facility] History of Past illness Narrative* [...] Overview: Ana Ivory is and lives in [place], [place]. At this time, we anticipate that [...] care for assistance with chest tube to [facility]. Return to [facility] on Sunday11/18/[address] removal . Esophageal reflux 10/08/2014 10/08/2014 Cataract 04/17/2013 09/15/2016 Overview: [facility] [place], Dr. Dada Rodríguez. Mild cataract in L [...] of this encounter (statuses as of 10/10/2022) [facility] History of Past illness Narrative* [...] Overview: Ana Ivory is and lives in [place], [place]. At this time, we anticipate that [...] reflux 10/08/2014 10/08/2014 Cataract 04/17/2013 09/15/2016 Overview: [facility] [place], Dr. Dada Rodríguez. Mild cataract in L [...] of this encounter (statuses as of 10/12/2022) [facility] History of Past illness Narrative* [...] Overview: Ana Ivory is and lives in [place] At this time, we anticipate that [...] care for assistance with chest tube to [facility]. Return to [facility] on Sunday11/18/[address] removal . Esophageal reflux 10/08/2014 10/08/2014 Cataract 04/17/2013 09/15/2016 Overview: [facility] [place], Dr. Dada Rodríguez. Mild cataract in L [...] of this encounter (statuses as of 10/18/2022) [facility] History of Past illness Narrative* [...] Overview: Ana Ivory is and lives in [place]. At this time, we anticipate that [...] care for assistance with chest tube to [facility]. Return to [facility] on Sunday11/18/[address] removal . Esophageal reflux 10/08/2014 10/08/2014 Cataract 04/17/2013 09/15/2016 Overview: [facility] [place], Dr. Dada Rodríguez. Mild cataract in L [...] of this encounter (statuses as of 01/25/2023) [facility] History of Past illness Narrative* [...] Overview: Ana Ivory is and lives in [place], [place]. At this time, we anticipate that [...] reflux 10/08/2014 10/08/2014 Cataract 04/17/2013 09/15/2016 Overview: [facility], Dr. Dada Rodríguez. Mild cataract in [...] of this encounter (statuses as of 02/08/2023) [facility] History of Past illness Narrative* [...] Overview: Ana Ivory is and lives in [place], [place] At this time, we anticipate that [...] care for assistance with chest tube to [facility]. Return to [facility] on Sunday11/18/[address] removal . Esophageal reflux 10/08/2014 10/08/2014 Cataract 04/17/2013 09/15/2016 Overview: [facility] [place], Dr. Dada Rodríguez. Mild cataract in L [...] of this encounter (statuses as of 02/12/2023) [facility] History of Past illness Narrative* [...] Overview: Ana Ivory is and lives in [place], [place]. At this time, we anticipate that [...] care for assistance with chest tube to [facility]. Return to [facility] on Sunday11/18/[address] removal . Esophageal reflux 10/08/2014 10/08/2014 Cataract 04/17/2013 09/15/2016 Overview: [facility] [place], Dr. Dada Rodríguez. Mild cataract in L [...] of this encounter (statuses as of 04/06/2023) [facility] History of Past illness Narrative* [...] Overview: Ana Ivory is and lives in [place], [place]. At this time, we anticipate that [...] care for assistance with chest tube to [facility]. Return to [facility] on Sunday11/18/[address] removal . Esophageal reflux 10/08/2014 10/08/2014 Cataract 04/17/2013 09/15/2016 Overview: [facility], Dr. Dada Rodríguez. Mild cataract in [...] of this encounter (statuses as of 04/08/2023) [facility] History of Past illness Narrative* [...] Overview: Ana Ivory is and lives in [place], [place]. At this time, we anticipate that [...] reflux 10/08/2014 10/08/2014 Cataract 04/17/2013 09/15/2016 Overview: [facility] [place], Dr. Dada Rodríguez. Mild cataract in L [...] of this encounter (statuses as of 06/01/2023) [facility] History of Past illness Narrative* [...] Overview: Ana Ivory is and lives in [place] At this time, we anticipate that [...] care for assistance with chest tube to [facility]. Return to [facility] on Sunday11/18/[address] . Esophageal reflux 10/08/2014 10/08/2014 Cataract 04/17/2013 09/15/2016 Overview: [facility] [place], Dr. Dada Rodríguez. Mild cataract in L [...] of this encounter (statuses as of 06/05/2023) [facility] History of Past illness Narrative* [...] Overview: Ana Ivory is and lives in [place] At this time, we anticipate that [...] care for assistance with chest tube to [facility]. Return to [facility] on Sunday11/18/[address] . Esophageal reflux 10/08/2014 10/08/2014 Cataract 04/17/2013 09/15/2016 Overview: [facility] [place], Dr. Dada Rodríguez. Mild cataract in L [...] of this encounter (statuses as of 06/06/2023) [facility] History of Past illness Narrative* [...] Overview: Ana Ivory is and lives in [place]. At this time, we anticipate that [...] reflux 10/08/2014 10/08/2014 Cataract 04/17/2013 09/15/2016 Overview: [facility], Dr. Dada Rodríguez. Mild cataract in [...] of this encounter (statuses as of 06/07/2023) [facility] History of Past illness Narrative* [...] Overview: Ana Ivory is and lives in [place]. At this time, we anticipate that [...] care for assistance with chest tube to [facility]. Return to [facility] on Sunday11/18/[address] . Esophageal reflux 10/08/2014 10/08/2014 Cataract 04/17/2013 09/15/2016 Overview: [facility] [place], Dr. Dada Rodríguez. Mild cataract in L [...] of this encounter (statuses as of 06/17/2023) [facility] History of Past illness Narrative* [...] Overview: Ana Ivory is and lives in [place]. At this time, we anticipate that [...] care for assistance with chest tube to [facility]. Return to [facility] on Sunday11/18/[address] . Esophageal reflux 10/08/2014 10/08/2014 Cataract 04/17/2013 09/15/2016 Overview: [facility] [place], Dr. Dada Rodríguez. Mild cataract in L [...] of this encounter (statuses as of 06/29/2023) [facility] History of Past illness Narrative* [...] Overview: Ana Ivory is and lives in [place], [place]. At this time, we anticipate that [...] reflux 10/08/2014 10/08/2014 Cataract 04/17/2013 09/15/2016 Overview: [facility] [place], Dr. Dada Rodríguez. Mild cataract in L [...] of this encounter (statuses as of 07/03/2023) [facility] History of Past illness Narrative* [...] Overview: Ana Ivory is and lives in [place]. At this time, we anticipate that [...] care for assistance with chest tube to [facility]. Return to [facility] on Sunday11/18/[address] . Esophageal reflux 10/08/2014 10/08/2014 Cataract 04/17/2013 09/15/2016 Overview: [facility] [place], Dr. Dada Rodríguez. Mild cataract in L [...] of this encounter (statuses as of 07/21/2023) [facility] of [facility] illness Narrative* [...] Overview: Ana Ivory is and lives in [place]. At this time, we anticipate that [...] reflux 10/08/2014 10/08/2014 Cataract 04/17/2013 09/15/2016 Overview: [facility] [place], Dr. Dada Rodríguez. Mild cataract in L [...] of this encounter (statuses as of 09/28/2023) [facility] History of Past illness Narrative* [...] Overview: Ana Ivory is and lives in [place]. At this time, we anticipate that [...] care for assistance with chest tube to [facility]. Return to [facility] on Sunday11/18/[address] . Esophageal reflux 10/08/2014 10/08/2014 Cataract 04/17/2013 09/15/2016 Overview: [facility] [place], Dr. Dada Rodríguez. Mild cataract in L [...] encounter (statuses as of 11/05/2023) [facility] note* Diagnosis Anxiety Anxiety state, unspecified [facility] Diagnosis Chronic gastritis without bleeding, unspecified gastritis type Esophagitis Esophagitis, unspecified documented in this [facility]* Diagnosis Ankle injury, initial encounter- Primary documented in this [facility]* Diagnosis Urinary tract infection without hematuria, [...] whether esophagitis present documented in this encounter [facility]* Diagnosis Asymptomatic postmenopausal status documented in this encounter [facility]* Diagnosis Osteoporosis, unspecified osteoporosis type, unspecified pathological fracture presence- Primary Anxiety Anxiety state, unspecified Encounter for immunization Need for other specified prophylactic vaccination against single bacterial disease documented [facility] this encounter 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 Diagnosis Onset Date Resolution Status 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 disease acut e Bronchiectasis chronic S/P lobectomy of lung resolv ed History of ischemic stroke a cute Overweight (BMI 25.0-29.9) a cute Diabetes 1.5, managed as type 1 chronic Essential (primary) hypertension chronic Polyneuropathy chronic Dyspnea acute Bronchiectasis [facility] Work Phone: Evaluation note* Diagnosis Onset Date Resolution Status History of ischemic stroke a cute Overweight (BMI 25.0-29.9) a cute Diabetes 1.5, managed as type 1 chronic Essential (primary) hypertension chronic Polyneuropathy chronic Dyspnea acute Bronchiectasis [facility] Work Phone: Evaluation note* Diagnosis 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, with long-term current use of insulin (HCC)- Primary Contusion of right foot, initial encounter Contusion of moravian region, initial encounter Injury of coccyx, initial encounter Facial pain Headache Jaw pain Anxiety Anxiety state, unspecified Vitamin D deficiency Unspecified vitamin D deficiency [facility] Intractable acute post-traumatic headache- Primary Acute post-traumatic headache Contusion of right foot, initial encounter Contusion of moravian region, initial encounter Injury of coccyx, initial encounter Facial pain Headache Jaw pain Injury of head, subsequent encounter [facility] Intractable acute post-traumatic headache- Primary Acute post-traumatic headache Contusion of right foot, initial encounter Contusion of moravian region, initial encounter Injury of coccyx, initial encounter Facial pain Headache Jaw pain [facility] Diagnosis Diabetes mellitus due to [...] pain Otalgia, unspecified [facility] Diagnosis Bronchiectasis without complication (HCC)- Primary Bronchiectasis without acute exacerbation Carcinoid bronchial adenoma, 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 Polyneuropathy chronic History of ischemic stroke r esolved Sepsis acute UTI (urinary tract infection) acute Diabetes 1.5, managed as type 1 chronic [facility] Work Phone: Evaluation note* Diagnosis Injury of head, subsequent encounter [facility] Diagnosis Onset Date Resolution Status Diabetes 1.5, managed as type 1 chronic Essential (primary) hypertension chronic Overweight (BMI 25.0-29.9) c hronic Polyneuropathy chronic Bronchiectasis chronic Fatigue noneactive 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 disease 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 Polyneuropathy chronic History of ischemic stroke [...] Sepsis resolved UTI (urinary tract infection) resolved [facility] Work Phone: Evaluation note* Diagnosis Debility- Primary Debility, unspecified Diabetes 1.5, managed as type 1 (HCC) Type II or unspecified type diabetes mellitus without mention of complication, not stated as uncontrolled Sepsis, due to unspecified organism, unspecified whether acute organ dysfunction present ([facility]) Pain in left ta [facility] Diagnosis Anxiety Anxiety state, unspecified documented in this encounter 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, with long-term current use of insulin (HCC)- Primary Essential hypertension Unspecified essential hypertension Encounter for long-term current use of medication Vitamin D deficiency Unspecified vitamin D deficiency Hyperlipidemia, unspecified hyperlipidemia type [facility] Diagnosis Diabetes mellitus due to underlying [...] Abnormality of gait [facility] Urinary [facility]- [facility] Anxiety Anxiety state, unspecified [facility] Diagnosis Sinobronchitis- Primary Unspecified sinusitis (chronic) Acute cough [facility]* Diagnosis SOB (shortness of breath)- Primary Shortness of breath [facility]* Diagnosis Diabetes 1.5, managed as type 1 (HCC)- Primary Type II or unspecified type diabetes mellitus without mention of complication, not stated as uncontrolled Screening for diabetic retinopathy Screening for other eye conditions Chest pain, unspecified type Lightheadedness Dizziness and giddiness Syncope, unspecified syncope type 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 Gastroesophageal reflux disease with esophagitis documented [facility]* Diagnosis Diabetes mellitus due to underlying [...] Pain in limb [facility] Diagnosis Diabetes mellitus due to underlying [...] injury, initial encounter [facility] this [facility] Diagnosis Diabetes mellitus due to underlying [...] novel coronavirus infection [facility] Diagnosis Diabetes mellitus due to underlying [...] Swelling of limb [facility] Diagnosis Diabetes mellitus due to underlying [...] Chronic cough Cough [facility] Diagnosis Diabetes mellitus due to underlying [...] side (HCC)- Primary documented in this encounter [facility] for referral (narrative)* Diagnostic Procedure Only (Urgent) - Closed Specialty Diagnoses / Procedures Referred By Maddison peters Referred To Contact XR IMAGING Diagnoses Ankle injury, initial encounter Procedures XR ANKLE GENERAL 3V AP/LAT/OBL RIGHT RADEX ANKLE COMPLETE MINIMUM 3 VIEWS Anu Pablo PA-C [address] [place] [address] Xr Imaging Referral ID Status Reason Start Date Expiration Date V isits Requested Visits Authorized [id number] Closed Auto-Generate d Referral 01/30/2022 03/01/2023 [address] 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 for referral (narrative)* Outpatient Procedure (Routine) - Authorized Specialty Diagnoses / Procedures Referred By Contac t Referred To Contact [facility] Diagnoses Lightheadedness Syncope, unspecified syncope type Procedures US CAROTID ARTERIES [facility] DUPLEX SCAN EXTRACRANIAL ART COMPL BI STUDY Clarence Berry APRN.[employer] [address] [place] [address] [facility] [place] [address] [place] [address] Referral ID Status Reason Start Date Expiration Date Visits Requested Visits Authorized [id number] Authorized Auto-Generat ed Referral 01/31/2024 01/30/2025 1 1 * Diagnostic Procedure Only (Routine) - Authorized Specialty Diagnoses / Procedures Referred By Contac t Referred To Contact US IMAGING Diagnoses Lightheadedness Syncope, unspecified syncope type Procedures US CAROTID BILATERAL Clarence Berry APRN.[employer] [address] [place] [address] [place] [address] Referral ID Status Reason Start Date Expiration Date Visits Requested Visits Authorized [id number] Authorized Auto-Generat ed Referral 01/31/2024 03/01/2025 1 1 * Outpatient Procedure (Routine) - Pending Review Specialty Diagnoses / Procedures Referred By Contac t Referred To Contact [facility] Diagnoses Chest pain, unspecified type Procedures ECG COMPLETE ECG ROUTINE ECG W/LEAST 12 LDS W/I&R Clarence Berry APRN.[employer] [address] [place] [address] [facility] [place] [address] [place] [address] Referral ID Status Reason Start Date Expiration Date Visits Requested Visits Authorized [id number] Pending Review Auto-Generat ed Referral 01/31/2024 01/30/2025 1 1 * Consult, Test, Treat (Routine) - Authorized Specialty Diagnoses / Procedures Referred By Contac t Referred To Contact Cardiology Diagnoses Chest pain, unspecified type Procedures CONSULT TO CARDIOLOGY OFFICE/OUTPATIENT [facility] 60 MINUTES Clarence Berry APRN.[employer] [address] [place] [address] Referral ID Status Reason Start Date Expiration Date Visits Requested Visits Authorized [id number] Authorized PCP Requested Referral 01/31/2024 01/30/2025 1 1 * Outpatient Procedure (Routine) - Authorized Specialty Diagnoses / Procedures Referred By Contac t Referred To Contact [facility] Diagnoses Chest pain, unspecified type Procedures STRESS ECHO TREADMILL ECHO TTHRC R-T 2D W/WO M-MODE COMPLETE REST&ST Clarence Berry APRN.[employer] [address] [place] [address] [facility] [place] [address] [place] [address] Referral ID Status Reason Start Date Expiration Date Visits Requested Visits Authorized [id number] Authorized Auto-Generat ed Referral 01/31/2024 01/30/2025 1 1 * Consult, Test, Treat (Routine) - Authorized Specialty Diagnoses / Procedures Referred By Contac t Referred To Contact Ophthalmology Diagnoses Diabetes 1.5, managed as type 1 (HCC) Screening for diabetic retinopathy Procedures CONSULT TO OPHTHALMOLOGY OFFICE/OUTPATIENT [facility] 60 MINUTES Clarence Berry APRN.CNS [address] [place] [address] Referral ID Status Reason Start Date Expiration Date Visits Requested Visits Authorized [id number] Authorized PCP Requested Referral 01/31/2024 01/30/2025 [address] [facility] for referral (narrative)* Diagnostic Procedure Only (Routine) - Closed Specialty Diagnoses / Procedures [facility] Referred To Contact XR IMAGING Diagnoses Foot pain, right Procedures XR FOOT GENERAL 3V AP/LAT/OBL RIGHT RADEX FOOT COMPLETE MINIMUM 3 VIEWS Crispin Cheng MD [address] [place] [address] [place] [address] Referral ID Status Reason Start Date Expiration Date V isits Requested Visits Authorized [id number] Closed Auto-Generate d Referral 12/30/2022 01/29/2024 [address] [facility] for referral (narrative)* Diagnostic Procedure Only (Urgent) - Closed Specialty Diagnoses / Procedures Referred By Contac t Referred To Contact XR IMAGING Diagnoses Ankle injury, initial encounter Procedures XR ANKLE GENERAL 3V AP/LAT/OBL RIGHT RADEX ANKLE COMPLETE MINIMUM 3 VIEWS Anu Pablo PA-C [address] [place] [address] [place] [address] Referral ID Status Reason Start Date Expiration Date V isits Requested Visits Authorized [id number] Closed Auto-Generate d Referral 01/30/2022 03/01/2023 [address] [facility] for visit Narrative* Auth/Cert Specialty Diagnoses / Procedures Referred By Maddison peters Referred To Contact Diagnoses History of Gonzales's esophagus [Z87.19 Procedures ESOPHAGOGASTRODUODENOSCOPY TRANSORAL DIAGNOSTIC EGD DIAGNOSTIC [GI9 [facility] [address] [place] [address] Referral ID Status Reason Start Date Expiration Date Visits Re quested Visits Authorized [id number] [address] 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 for visit Narrative* Diagnostic Procedure Only (Routine) - Closed Specialty Diagnoses / Procedures Referred By Maddison peters Referred To Contact XR IMAGING Diagnoses Foot pain, right Procedures XR FOOT GENERAL 3V AP/LAT/OBL RIGHT RADEX FOOT COMPLETE MINIMUM 3 VIEWS Crispin Cheng MD [address] [place] [address] [place] [address] Referral ID Status Reason Start Date Expiration Date V isits Requested Visits Authorized [id number] Closed Auto-Generate d Referral 12/30/2022 01/29/2024 [address] [facility] for visit Narrative* Diagnostic Procedure Only (Urgent) - Closed Specialty Diagnoses / Procedures Referred By Maddison t Referred To Contact XR IMAGING Diagnoses Ankle injury, initial encounter Procedures XR ANKLE GENERAL 3V AP/LAT/OBL RIGHT RADEX ANKLE COMPLETE MINIMUM 3 VIEWS Anu Pablo PA-C [address] [place] [address] [place] [address] Referral ID Status Reason Start Date Expiration Date V isits Requested Visits Authorized [id number] Closed Auto-Generate d Referral 01/30/2022 03/01/2023 1 1 [facility] Advance Directives No Advanced Directives Records FoundDocuments on File Type Date Recorded Patient National Account Executive Expl anation Advance Directive(s) 11/10/2021 3:53 PM [...] Documents on File Type Date Recorded Patient National Account Executive Expl anation Advance Directive(s) 12/21/2021 1:29 PM [...] Documents on File Type Date Recorded Patient National Account Executive Expl anation Advance Directive(s) 12/21/2021 1:29 PM [...] Documents on File Type Date Recorded Patient National Account Executive Expl anation Advance Directive(s) 09/25/2008 8:05 PM Advance Directive(s) 05/05/2008 Advance Directive(s) 09/27/2006 Advance Directive Response Recorded Date/ Time Living Will Yes December 29, 2020 1 0:06am Power of Detacker Yes December 29, 2020 10:06am Documents on File Type Date Recorded Patient National Account Executive Expl anation Advance Directive(s) 09/25/2008 8:05 PM Advance Directive(s) 05/05/2008 Advance Directive(s) 09/27/2006 Advance Directive Response Recorded Date/ Time Name of Medical Power of Detacker Dariel Gaviria, lilly n in law June 10, 2023 6:29pm Living Will Yes June 10 6:29pm Power of Detacker Yes June 10, 2023 6:29pm Advance Directive Response Recorded Date/ Time Name of Medical Power of Detacker Dariel Gaviria, so n in law June 10, 2023 8:53pm Name of Medical Power of Detacker Ayaz Ivory, June 15, 2023 3:30pm Living Will Yes June 15 3:30pm Power of Detacker Yes June 15, 2023 3:30pm Medications Administered Section Inactive Administered Medications - up to 3 most recent administrations Medication Order MAR Action Action Date Dose Rate Site benzocaine 20% 1 [place] (TOPEX) 1 [place], TOPICAL, DIRECTED, Starting on Sun12/21/21 at 0830, Until Sun12/21/21 at 1229, DOSING DIRECTED BY PHYSICIAN FOR PROCEDURAL SEDATION ONLY - Pharmaceutical Waste: Aerosol -, Intraprocedure Given 12/21/2021 8:07 AM EDT 1 [place] [facility] Concerns Infection Onset Date Last Indicated [...] CT HEAD/BRAIN W/O CONTRAST MATERIAL Clarence Berry, MOLDER PIPE COVERING.[employer] [address] [place] [address] Ct Imaging Referral ID Status Reason Start Date Expiration Date V isits Requested Visits Authorized [id number] Closed Auto-Generate d Referral 10/10/2022 11/09/2023 1 1 Specialty Diagnoses / Procedures Referred By Contac t Referred To Contact [facility] Diagnoses Contusion of right foot, initial encounter Contusion of moravian region, initial encounter Injury of coccyx, initial encounter Facial pain Jaw pain Procedures CONSULT TO PHYSICAL THERAPY PHYSICAL THERAPY EVALUATION HIGH COMPLEX 45 MINS Clarence Berry, MOLDER PIPE COVERING.[employer]ALL [employer] [address] [place] [address] [facility] [place] [address] [place] [address] Referral ID Status Reason Start Date Expiration Date Visits Requested Visits Authorized [id number] Authorized PCP Requested Referral Auto-Generate d Referral 10/10/2022 10/10/2023 99 99 Specialty Diagnoses / Procedures Referred By Contac t Referred To Contact Gastroenterology 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 60-74 MINUTES Clarence Berry, MOLDER PIPE COVERING.[employer] [address] [place] [address] Referral ID Status Reason Start Date Expiration Date Visits Requested Visits Authorized [id number] Authorized PCP Requested Referral 3 05/30/2024 1 1 Specialty Diagnoses / Procedures Referred By Contac t Referred To Contact CT IMAGING Diagnoses Injury of head, subsequent encounter Procedures CT BRAIN WO IVCON CT HEAD/BRAIN W/O CONTRAST MATERIAL Clarence Berry, MOLDER PIPE COVERING.[employer] [address] [place] [address] Ct Imaging [facility] Specialty Diagnoses / Procedures Referred By Contac t Referred To Contact Orthopedics Diagnoses Pain in left ta Procedures CONSULT TO ORTHOPAEDICS OFFICE/OUTPATIENT [facility] 60-74 MINUTES Clarence Berry, MOLDER PIPE COVERING.[employer]ASKET[employer]ALL [employer]ACH [address] [place] [address] Referral ID Status Reason Start Date Expiration Date Visits Requested Visits Authorized [id number] Authorized PCP Requested Referral 3 07/01/2024 1 1 Summary Purpose Additional Source Comments Source Comments (unrecognize d section and content) In the event this informatio n is protected by the Federal Confidentiality of Alcohol and Drug Abuse Patient Records regulations: The Federal rules restrict any use of the information to criminally investigate or prosecute any alcohol or drug abuse patient.[facility] the event this information is protected by the Federal Confidentiality of Alcohol and Drug Abuse Patient Records regulations: The Federal rules restrict any use of the information to criminally investigate or prosecute any alcohol or drug abuse patient.[facility] the event this information is protected by the Federal Confidentiality of Alcohol and Drug Abuse Patient Records regulations: The Federal rules restrict any use of the information to criminally investigate or prosecute any alcohol or drug abuse patient.[facility] the event this information is protected by the Federal Confidentiality of Alcohol and Drug Abuse Patient Records regulations: The Federal rules restrict any use of the information to criminally investigate or prosecute any alcohol or drug abuse patient.[facility] the event this information is protected by the Federal Confidentiality of Alcohol and Drug Abuse Patient Records regulations: The Federal rules restrict any use of the information to criminally investigate or prosecute any alcohol or drug abuse patient.[facility] the event this information is protected by the Federal Confidentiality of Alcohol and Drug Abuse Patient Records regulations: The Federal rules restrict any use of the information to criminally investigate or prosecute any alcohol or drug abuse patient.[facility] the event this information is protected by the Federal Confidentiality of Alcohol and Drug Abuse Patient Records regulations: The Federal rules restrict any use of the information to criminally investigate or prosecute any alcohol or drug abuse patient.[facility] the event this information is protected by the Federal Confidentiality of Alcohol and Drug Abuse Patient Records regulations: The Federal rules restrict any use of the information to criminally investigate or prosecute any alcohol or drug abuse patient.[facility] the event this information is protected by the Federal Confidentiality of Alcohol and Drug Abuse Patient Records regulations: The Federal rules restrict any use of the information to criminally investigate or prosecute any alcohol or drug abuse patient.[facility] the event this information is protected by the Federal Confidentiality of Alcohol and Drug Abuse Patient Records regulations: The Federal rules restrict any use of the information to criminally investigate or prosecute any alcohol or drug abuse patient.[facility] the event this information is protected by the Federal Confidentiality of Alcohol and Drug Abuse Patient Records regulations: The Federal rules restrict any use of the information to criminally investigate or prosecute any alcohol or drug abuse patient.[facility] the event this information is protected by the Federal Confidentiality of Alcohol and Drug Abuse Patient Records regulations: The Federal rules restrict any use of the information to criminally investigate or prosecute any alcohol or drug abuse patient.[facility] the event this information is protected by the Federal Confidentiality of Alcohol and Drug Abuse Patient Records regulations: The Federal rules restrict any use of the information to criminally investigate or prosecute any alcohol or drug abuse patient.[facility] the event this information is protected by the Federal Confidentiality of Alcohol and Drug Abuse Patient Records regulations: The Federal rules restrict any use of the information to criminally investigate or prosecute any alcohol or drug abuse patient.[facility] the event this information is protected by the Federal Confidentiality of Alcohol and Drug Abuse Patient Records regulations: The Federal rules restrict any use of the information to criminally investigate or prosecute any alcohol or drug abuse patient.[facility] the event this information is protected by the Federal Confidentiality of Alcohol and Drug Abuse Patient Records regulations: The Federal rules restrict any use of the information to criminally investigate or prosecute any alcohol or drug abuse patient.[facility] the event this information is protected by the Federal Confidentiality of Alcohol and Drug Abuse Patient Records regulations: The Federal rules restrict any use of the information to criminally investigate or prosecute any alcohol or drug abuse patient.[facility] the event this information is protected by the Federal Confidentiality of Alcohol and Drug Abuse Patient Records regulations: The Federal rules restrict any use of the information to criminally investigate or prosecute any alcohol or drug abuse patient.[facility] the event this information is protected by the Federal Confidentiality of Alcohol and Drug Abuse Patient Records regulations: The Federal rules restrict any use of the information to criminally investigate or prosecute any alcohol or drug abuse patient.[facility] the event this information is protected by the Federal Confidentiality of Alcohol and Drug Abuse Patient Records regulations: The Federal rules restrict any use of the information to criminally investigate or prosecute any alcohol or drug abuse patient.[facility] the event this information is protected by the Federal Confidentiality of Alcohol and Drug Abuse Patient Records regulations: The Federal rules restrict any use of the information to criminally investigate or prosecute any alcohol or drug abuse patient.[facility] the event this information is protected by the Federal Confidentiality of Alcohol and Drug Abuse Patient Records regulations: The Federal rules restrict any use of the information to criminally investigate or prosecute any alcohol or drug abuse patient.[facility] the event this information is protected by the Federal Confidentiality of Alcohol and Drug Abuse Patient Records regulations: The Federal rules restrict any use of the information to criminally investigate or prosecute any alcohol or drug abuse patient.[facility] the event this information is protected by the Federal Confidentiality of Alcohol and Drug Abuse Patient Records regulations: The Federal rules restrict any use of the information to criminally investigate or prosecute any alcohol or drug abuse patient.[facility] the event this information is protected by the Federal Confidentiality of Alcohol and Drug Abuse Patient Records regulations: The Federal rules restrict any use of the information to criminally investigate or prosecute any alcohol or drug abuse patient.[facility] the event this information is protected by the Federal Confidentiality of Alcohol and Drug Abuse Patient Records regulations: The Federal rules restrict any use of the information to criminally investigate or prosecute any alcohol or drug abuse patient.[facility] the event this information is protected by the Federal Confidentiality of Alcohol and Drug Abuse Patient Records regulations: The Federal rules restrict any use of the information to criminally investigate or prosecute any alcohol or drug abuse patient.[facility] the event this information is protected by the Federal Confidentiality of Alcohol and Drug Abuse Patient Records regulations: The Federal rules restrict any use of the information to criminally investigate or prosecute any alcohol or drug abuse patient.[facility] the event this information is protected by the Federal Confidentiality of Alcohol and Drug Abuse Patient Records regulations: The Federal rules restrict any use of the information to criminally investigate or prosecute any alcohol or drug abuse patient.[facility] the event this information is protected by the Federal Confidentiality of Alcohol and Drug Abuse Patient Records regulations: The Federal rules restrict any use of the information to criminally investigate or prosecute any alcohol or drug abuse patient.[facility] HospitalIn the event this information is protected by the Federal Confidentiality of Alcohol and Drug Abuse Patient Records regulations: The Federal rules restrict any use of the information to criminally investigate or prosecute any alcohol or drug abuse patient.[facility] HospitalIn the event this information is protected by the Federal Confidentiality of Alcohol and Drug Abuse Patient Records regulations: The Federal rules restrict any use of the information to criminally investigate or prosecute any alcohol or drug abuse patient.[facility] HospitalIn the event this information is protected by the Federal Confidentiality of Alcohol and Drug Abuse Patient Records regulations: The Federal rules restrict any use of the information to criminally investigate or prosecute any alcohol or drug abuse patient.[facility] HospitalIn the event this information is protected by the Federal Confidentiality of Alcohol and Drug Abuse Patient Records regulations: The Federal rules restrict any use of the information to criminally investigate or prosecute any alcohol or drug abuse patient.[facility] HospitalIn the event this information is protected by the Federal Confidentiality of Alcohol and Drug Abuse Patient Records regulations: The Federal rules restrict any use of the information to criminally investigate or prosecute any alcohol or drug abuse patient.[facility] HospitalIn the event this information is protected by the Federal Confidentiality of Alcohol and Drug Abuse Patient Records regulations: The Federal rules restrict any use of the information to criminally investigate or prosecute any alcohol or drug abuse patient.[facility] HospitalIn the event this information is protected by the Federal Confidentiality of Alcohol and Drug Abuse Patient Records regulations: The Federal rules restrict any use of the information to criminally investigate or prosecute any alcohol or drug abuse patient.[facility] HospitalIn the event this information is protected by the Federal Confidentiality of Alcohol and Drug Abuse Patient Records regulations: The Federal rules restrict any use of the information to criminally investigate or prosecute any alcohol or drug abuse patient.[facility] HospitalIn the event this information is protected by the Federal Confidentiality of Alcohol and Drug Abuse Patient Records regulations: The Federal rules restrict any use of the information to criminally investigate or prosecute any alcohol or drug abuse patient.[facility] HospitalIn the event this information is protected by the Federal Confidentiality of Alcohol and Drug Abuse Patient Records regulations: The Federal rules restrict any use of the information to criminally investigate or prosecute any alcohol or drug abuse patient.[facility] HospitalIn the event this information is protected by the Federal Confidentiality of Alcohol and Drug Abuse Patient Records regulations: The Federal rules restrict any use of the information to criminally investigate or prosecute any alcohol or drug abuse patient.[facility] HospitalIn the event this information is protected by the Federal Confidentiality of Alcohol and Drug Abuse Patient Records regulations: The Federal rules restrict any use of the information to criminally investigate or prosecute any alcohol or drug abuse patient.[facility] HospitalIn the event this information is protected by the Federal Confidentiality of Alcohol and Drug Abuse Patient Records regulations: The Federal rules restrict any use of the information to criminally investigate or prosecute any alcohol or drug abuse patient.[facility] HospitalIn the event this information is protected by the Federal Confidentiality of Alcohol and Drug Abuse Patient Records regulations: The Federal rules restrict any use of the information to criminally investigate or prosecute any alcohol or drug abuse patient.[facility] HospitalIn the event this information is protected by the Federal Confidentiality of Alcohol and Drug Abuse Patient Records regulations: The Federal rules restrict any use of the information to criminally investigate or prosecute any alcohol or drug abuse patient.[facility] HospitalIn the event this information is protected by the Federal Confidentiality of Alcohol and Drug Abuse Patient Records regulations: The Federal rules restrict any use of the information to criminally investigate or prosecute any alcohol or drug abuse patient.[facility] HospitalIn the event this information is protected by the Federal Confidentiality of Alcohol and Drug Abuse Patient Records regulations: The Federal rules restrict any use of the information to criminally investigate or prosecute any alcohol or drug abuse patient.[facility] HospitalIn the event this information is protected by the Federal Confidentiality of Alcohol and Drug Abuse Patient Records regulations: The Federal rules restrict any use of the information to criminally investigate or prosecute any alcohol or drug abuse patient.[facility] HospitalIn the event this information is protected by the Federal Confidentiality of Alcohol and Drug Abuse Patient Records regulations: The Federal rules restrict any use of the information to criminally investigate or prosecute any alcohol or drug abuse patient.[facility] HospitalIn the event this information is protected by the Federal Confidentiality of Alcohol and Drug Abuse Patient Records regulations: The Federal rules restrict any use of the information to criminally investigate or prosecute any alcohol or drug abuse patient.[facility] HospitalIn the event this information is protected by the Federal Confidentiality of Alcohol and Drug Abuse Patient Records regulations: The Federal rules restrict any use of the information to criminally investigate or prosecute any alcohol or drug abuse patient.[facility] HospitalIn the event this information is protected by the Federal Confidentiality of Alcohol and Drug Abuse Patient Records regulations: The Federal rules restrict any use of the information to criminally investigate or prosecute any alcohol or drug abuse patient.[facility] HospitalIn the event this information is protected by the Federal Confidentiality of Alcohol and Drug Abuse Patient Records regulations: The Federal rules restrict any use of the information to criminally investigate or prosecute any alcohol or drug abuse patient.[facility] HospitalIn the event this information is protected by the Federal Confidentiality of Alcohol and Drug Abuse Patient Records regulations: The Federal rules restrict any use of the information to criminally investigate or prosecute any alcohol or drug abuse patient.[facility] the event this information is protected by the Federal Confidentiality of Alcohol and Drug Abuse Patient Records regulations: The Federal rules restrict any use of the information to criminally investigate or prosecute any alcohol or drug abuse patient.[facility] HospitalIn the event this information is protected by the Federal Confidentiality of Alcohol and Drug Abuse Patient Records regulations: The Federal rules restrict any use of the information to criminally investigate or prosecute any alcohol or drug abuse patient.[facility] HospitalIn the event this information is protected by the Federal Confidentiality of Alcohol and Drug Abuse Patient Records regulations: The Federal rules restrict any use of the information to criminally investigate or prosecute any alcohol or drug abuse patient.[facility] HospitalIn the event this information is protected by the Federal Confidentiality of Alcohol and Drug Abuse Patient Records regulations: The Federal rules restrict any use of the information to criminally investigate or prosecute any alcohol or drug abuse patient.[facility] HospitalIn the event this information is protected by the Federal Confidentiality of Alcohol and Drug Abuse Patient Records regulations: The Federal rules restrict any use of the information to criminally investigate or prosecute any alcohol or drug abuse patient.[facility] HospitalIn the event this information is protected by the Federal Confidentiality of Alcohol and Drug Abuse Patient Records regulations: The Federal rules restrict any use of the information to criminally investigate or prosecute any alcohol or drug abuse patient.[facility] HospitalIn the event this information is protected by the Federal Confidentiality of Alcohol and Drug Abuse Patient Records regulations: The Federal rules restrict any use of the information to criminally investigate or prosecute any alcohol or drug abuse patient.[facility] HospitalIn the event this information is protected by the Federal Confidentiality of Alcohol and Drug Abuse Patient Records regulations: The Federal rules restrict any use of the information to criminally investigate or prosecute any alcohol or drug abuse patient.[facility] HospitalIn the event this information is protected by the Federal Confidentiality of Alcohol and Drug Abuse Patient Records regulations: The Federal rules restrict any use of the information to criminally investigate or prosecute any alcohol or drug abuse patient.[facility] HospitalIn the event this information is protected by the Federal Confidentiality of Alcohol and Drug Abuse Patient Records regulations: The Federal rules restrict any use of the information to criminally investigate or prosecute any alcohol or drug abuse patient.[facility] HospitalIn the event this information is protected by the Federal Confidentiality of Alcohol and Drug Abuse Patient Records regulations: The Federal rules restrict any use of the information to criminally investigate or prosecute any alcohol or drug abuse patient.[facility] HospitalIn the event this information is protected by the Federal Confidentiality of Alcohol and Drug Abuse Patient Records regulations: The Federal rules restrict any use of the information to criminally investigate or prosecute any alcohol or drug abuse patient.[facility] HospitalIn the event this information is protected by the Federal Confidentiality of Alcohol and Drug Abuse Patient Records regulations: The Federal rules restrict any use of the information to criminally investigate or prosecute any alcohol or drug abuse patient.[facility] HospitalIn the event this information is protected by the Federal Confidentiality of Alcohol and Drug Abuse Patient Records regulations: The Federal rules restrict any use of the information to criminally investigate or prosecute any alcohol or drug abuse patient.[facility] HospitalIn the event this information is protected by the Federal Confidentiality of Alcohol and Drug Abuse Patient Records regulations: The Federal rules restrict any use of the information to criminally investigate or prosecute any alcohol or drug abuse patient.[facility] HospitalIn the event this information is protected by the Federal Confidentiality of Alcohol and Drug Abuse Patient Records regulations: The Federal rules restrict any use of the information to criminally investigate or prosecute any alcohol or drug abuse patient.[facility] HospitalIn the event this information is protected by the Federal Confidentiality of Alcohol and Drug Abuse Patient Records regulations: The Federal rules restrict any use of the information to criminally investigate or prosecute any alcohol or drug abuse patient.[facility] HospitalIn the event this information is protected by the Federal Confidentiality of Alcohol and Drug Abuse Patient Records regulations: The Federal rules restrict any use of the information to criminally investigate or prosecute any alcohol or drug abuse patient.[facility] HospitalIn the event this information is protected by the Federal Confidentiality of Alcohol and Drug Abuse Patient Records regulations: The Federal rules restrict any use of the information to criminally investigate or prosecute any alcohol or drug abuse patient.[facility] HospitalIn the event this information is protected by the Federal Confidentiality of Alcohol and Drug Abuse Patient Records regulations: The Federal rules restrict any use of the information to criminally investigate or prosecute any alcohol or drug abuse patient.[facility] HospitalIn the event this information is protected by the Federal Confidentiality of Alcohol and Drug Abuse Patient Records regulations: The Federal rules restrict any use of the information to criminally investigate or prosecute any alcohol or drug abuse patient.[facility] HospitalIn the event this information is protected by the Federal Confidentiality of Alcohol and Drug Abuse Patient Records regulations: The Federal rules restrict any use of the information to criminally investigate or prosecute any alcohol or drug abuse patient.[facility] HospitalIn the event this information is protected by the Federal Confidentiality of Alcohol and Drug Abuse Patient Records regulations: The Federal rules restrict any use of the information to criminally investigate or prosecute any alcohol or drug abuse patient.[facility] HospitalIn the event this information is protected by the Federal Confidentiality of Alcohol and Drug Abuse Patient Records regulations: The Federal rules restrict any use of the information to criminally investigate or prosecute any alcohol or drug abuse patient.[facility] HospitalIn the event this information is protected by the Federal Confidentiality of Alcohol and Drug Abuse Patient Records regulations: The Federal rules restrict any use of the information to criminally investigate or prosecute any alcohol or drug abuse patient.[facility] Reason for Visit (unrecogniz ed [...] NEW HIGH MDM 60-74 MINUTES Clarence Berry, [employer] [address] [place] [address] Referral ID Status Reason Start Date Expiration Date V isits Requested Visits Authorized [id number] Closed PCP Requested Referral 05/31/2023 05/30/2024 [address] Specialty Diagnoses / Procedures Referred By Maddison peters Referred To Contact CT IMAGING Diagnoses Injury of head, subsequent encounter Procedures CT BRAIN WO IVCON CT HEAD/BRAIN W/O CONTRAST MATERIAL Clarence Berry, [employer] [address] [place] [address] [place] [id number] Referral ID Status Reason Start Date Expiration Date V isits Requested Visits Authorized [id number] Closed Auto-Generate d Referral 10/10/2022 11/09/2023 1 [...] month Reason Comments Transition Of Care D/C [facility] 07/12/24 for syncope Reason Comments Follow Reason Comments Home Health Point of Care Results Reason Comments [facility] OT updated POC Reason Comments Patient Update Reason Comments ST plan of care Reason Comments Medication Problem Reason Onset Date Comments Population Health Navigation Outreach 11/20/2024 Jovana/Workbench/ACO Reason Comments Occupatioal Therapy Updated Plan of Care Reason Comments Delay of care- OT [facility] Reason Comments OT plan of care Reason Onset Date Comments Home Care Management 12/17/2024 Reason Onset Date Comments Population Health Navigation Outreach 12/23/2024 Jovana/Workbench/ACO Reason Onset Date Comments Population Health Navigation Outreach 01/22/2025 Jovana/Workbench/ACO Reason Onset Date Comments Population Health Navigation Outreach 02/23/2025 Jovana/Workbench/ACO Reason Onset Date Comments Population Health Navigation Outreach 03/26/2025 Jovana/Workbench/ACO Care Teams (unrecognized sec tion and content) Health Type Technician Relationship Specialty Start Date End Date Alicia Blount MD [address] [place] [address] PCP - General Internal Medicine 01/17/17 Health Type Technician Relationship Specialty Start Date End Date Alicia Blount MD [address] [facility] [place] [address] PCP - General Internal Medicine 01/17/17 Health Type Technician Relationship Specialty Start Date End Date Alicia Blount MD [address] [facility] [place] [address] PCP - General Internal Medicine 01/17/17 Health Type Technician Relationship Specialty Start Date End Date Alicia Blount MD [address] [facility] [place] [address] PCP - General Internal Medicine 01/17/17 Health Type Technician Relationship Specialty Start Date End Date Alicia Blount MD [address] [facility] [place] [address] PCP - General Internal Medicine 01/17/17 Health Type Technician Relationship Specialty Start Date End Date Alicia Blount MD [address] [place] [address] PCP - General Internal Medicine 01/17/17 Health Type Technician Relationship Specialty Start Date End Date Alicia Blount MD [address] [place] [address] PCP - General Internal Medicine 01/17/17 Health Type Technician Relationship Specialty Start Date End Date Alicia Blount MD [address] [place] [address] PCP - General Internal Medicine 01/17/17 Health Type Technician Relationship Specialty Start Date End Date Alicia Blount MD [facility] [place] [address] PCP - General Internal Medicine 01/17/17 Health Type Technician Relationship Specialty Start Date End Date Alicia Blount MD [address] [place] [address], [place] [address] PCP - General Internal Medicine 01/17/17 Health Type Technician Relationship Specialty Start Date End Date Alicia Blount MD [address] [place] [address] PCP - General Internal Medicine 01/17/17 Health Type Technician Relationship Specialty Start Date End Date Alicia Blount MD [address] [place] [address] PCP - General Internal Medicine 01/17/17 Health Type Technician Relationship Specialty Start Date End Date Alicia Blount MD [address] [place] [address] PCP - General Internal Medicine 01/17/17 Health Type Technician Relationship Specialty Start Date End Date Alicia Blount MD [address] [place] [address] PCP - General Internal Medicine 01/17/17 Team [...] Provider, Referr ing Provider Active Johana Cat SECURITY SPECIALIST, SECURITY SPECIALIST-C Attending Provider Active Team Status: Active Member Role Status Dates Dr. Alicia Blount MD Primary Care Provider Active Johana Cat SECURITY SPECIALIST, SECURITY SPECIALIST-C Referring Provider, Other Pr ovider Active Dr. Jamar Chanel DO Attending Provider Active Team Status: Active Member Role Status Dates Dr. Alicia Blount MD Primary Care Provider Active Johana Cat SECURITY SPECIALIST, SECURITY SPECIALIST-C Referring Provider, Other Pr ovider Active Dr. Reji Bran MD Attending Provider Active Team Status: Active Member Role Status Dates Dr. Alicia Blount MD Primary Care Provider Active Dr. Anna Espinoza MD Attending Provider Activ e Team Status: Inactive Member Role Status Dates Dr. Alicia Blount MD Primary Care Provider Active Johana Cat SECURITY SPECIALIST, SECURITY SPECIALIST-C Attending Provider Active Team Status: Inactive Member Role Status Dates Dr. Alicia Blount MD Primary Care Provider Active Johana Cat SECURITY SPECIALIST, SECURITY SPECIALIST-C Attending Provider, Referrin g Provider Active Team Status: Active Member Role Status Dates Dr. Alicia Blount MD Primary Care Provider Active Johana Cat SECURITY SPECIALIST, SECURITY SPECIALIST-C Attending Provider Active Health Type Technician Relationship Specialty Start Date End Date Alicia Blount MD [address] [place] [address] PCP - General Internal Medicine 01/17/17 Health Type Technician Relationship Specialty Start Date End Date Alicia Blount MD [address] [place], [place] [id number] PCP - General Internal Medicine 01/17/17 Health Type Technician Relationship Specialty Start Date End Date Alicia Blount MD [address] [place], [place] [id number] PCP - General Internal Medicine 01/17/17 Health Type Technician Relationship Specialty Start Date End Date Alicia Blount MD [address] [place] [address] PCP - General Internal Medicine 01/17/17 Health Type Technician Relationship Specialty Start Date End Date Alicia Blount MD [address] [place] [address] PCP - General Internal Medicine 01/17/17 Health Type Technician Relationship Specialty Start Date End Date Alicia Blount MD [address] [place] [address] PCP - General Internal Medicine 01/17/17 Health Type Technician Relationship Specialty Start Date End Date Alicia Blount MD [address] [place] [address] PCP - General Internal Medicine 01/17/17 Health Type Technician Relationship Specialty Start Date End Date Alicia Blount MD [address] [place] [address] PCP - General Internal Medicine 01/17/17 Health Type Technician Relationship Specialty Start Date End Date Alicia Blount MD [address] [place] [address] PCP - General Internal Medicine 01/17/17 Health Type Technician Relationship Specialty Start Date End Date Alicia Blount MD [address] [place] [address] PCP - General Internal Medicine 01/17/17 Health Type Technician Relationship Specialty Start Date End Date Alicia Blount MD [address] [place] [address] PCP - General Internal Medicine 01/17/17 Team Status: Inactive Member Role Status Dates Dr. Alicia Blount MD Primary Care Provider, Referr ing Provider Active Dr. Hernando Pandya MD Attending Provider Active Team Status: Active Member Role Status Dates Dr. Alicia Blount MD Primary Care Provider Active Dr. Dada Maynard DO Emergency Provider Active Dr. Edwin Morgan MD Admit Provider, Attending Pro vider Active Health Type Technician Relationship Specialty Start Date End Date Alicia Blount MD [address] [place], [place] [id number] PCP - General Internal Medicine 01/17/17 Team [...] Dr. Denzel Forbes MD Attending Provider Active Health Type Technician Relationship Specialty Start Date End Date Alicia Blount MD [address] [place] [address] PCP - General Internal Medicine 01/17/17 Health Type Technician Relationship Specialty Start Date End Date Alicia Blount MD [address] [place] [address] PCP - General Internal Medicine 01/17/17 Health Type Technician Relationship Specialty Start Date End Date Alicia Blount MD [address] [place], [place] [address] PCP - General Internal Medicine 01/17/17 Team [...] MD Admit Provider, Attending Provid er Active Health Type Technician Relationship Specialty Start Date End Date Alicia Blount MD [address] [place] [address] PCP - General Internal Medicine 01/17/17 Health Type Technician Relationship Specialty Start Date End Date Alicia Blount MD [address] [place] [address] PCP - General Internal Medicine 01/17/17 Health Type Technician Relationship Specialty Start Date End Date Alicia Blount MD [address] [place] [address] PCP - General Internal Medicine 01/17/17 Health Type Technician Relationship Specialty Start Date End Date Alicia Blount MD [address] [place] [address] PCP - General Internal Medicine 01/17/17 Health Type Technician Relationship Specialty Start Date End Date Alicia Blount MD [address] [place] [address] PCP - General Internal Medicine 01/17/17 Health Type Technician Relationship Specialty Start Date End Date Alicia Blount MD [address] [place] [address] PCP - General Internal Medicine 01/17/17 Health Type Technician Relationship Specialty Start Date End Date Alicia Blount MD [address] [place] [address] PCP - General Internal Medicine 01/17/17 Health Type Technician Relationship Specialty Start Date End Date Alicia Blount MD [address] [place] [address] PCP - General Internal Medicine 01/17/17 Health Type Technician Relationship Specialty Start Date End Date Alicia Blount MD [address] [place] [address] PCP - General Internal Medicine 01/17/17 Health Type Technician Relationship Specialty Start Date End Date Alicia Blount MD [address] [place] [address] PCP - General Internal Medicine 01/17/17 Health Type Technician Relationship Specialty Start Date End Date Alicia Blount MD [address] [place] [address] PCP - General Internal Medicine 01/17/17 Health Type Technician Relationship Specialty Start Date End Date Alicia Blount MD [address] [place] [address] PCP - General Internal Medicine 01/17/17 Health Type Technician Relationship Specialty Start Date End Date Alicia Blount MD [address] [place] [address] PCP - General Internal Medicine 01/17/17 Ellen Gonzalez RN [address] [place] [address] Primary Care Barber Instructor 07/14/24 Health Type Technician Relationship Specialty Start Date End Date Alicia Blount MD [address] [place] [address] PCP - General Internal Medicine 01/17/17 Ellen Gonzalez RN [address] [place] [address] Primary Care Barber Instructor 07/14/24 Clarence Berry APRN.COLLEGE BASKETBALL COACH [address] [place] [address] Production Line Internal Medicine 07/21/24 Isabella Emerson APRN.RESOURCE SPECIALIST [address] [place] [address] Production Line Internal Medicine 07/21/24 Health Type Technician Relationship Specialty Start Date End Date Alicia Blount MD [address] [place] [address] PCP - General Internal Medicine 01/17/17 Ellen Gonzalez, MANNY [address] [place] [address] Primary Care Barber Instructor 07/14/24 Health Type Technician Relationship Specialty Start Date End Date Alicia Blount MD [address] [place] [address] PCP - General Internal Medicine 01/17/17 Clarence Berry, MOLDER PIPE COVERING.COLLEGE BASKETBALL COACH [address] [place] [address] Production Line Internal Medicine 07/21/24 Isabella Emerson APRN.RESOURCE SPECIALIST [address] [place] [address] Production Line Internal Medicine 07/21/24 Health Type Technician Relationship Specialty Start Date End Date Alicia Blount MD [address] [place] [address] PCP - General Internal Medicine 01/17/17 Clarence Berry, MOLDER PIPE COVERING.COLLEGE BASKETBALL COACH [address] [place] [address] Production Line Internal Medicine 07/21/24 Isabella Emerson APRN.RESOURCE SPECIALIST [address] [place] [address] Production Line Internal Medicine 07/21/24 Shelby Dee, MANNY [address] [place] [address] Primary Care Barber Instructor 10/20/24 10/20/24 Health Type Technician Relationship Specialty Start Date End Date Alicia Blount MD [address] [place] [address] PCP - General Internal Medicine 01/17/17 Clarence Berry, MOLDER PIPE COVERING.COLLEGE BASKETBALL COACH [address] [place] [address] Production Line Internal Medicine 07/21/24 Isabella Emerson MOLDER PIPE COVERING.RESOURCE SPECIALIST [address] [place] [address] [facility] Internal Medicine 07/21/24 Health Type Technician Relationship Specialty Start Date End Date Alicia Blount MD [address] [place] [address] PCP - General Internal Medicine 01/17/17 Clarence Berry, MOLDER PIPE COVERING.COLLEGE BASKETBALL COACH [address] [place] [address] Production Line Internal Medicine 07/21/24 Isabella Emerson MOLDER PIPE COVERING.RESOURCE SPECIALIST [address] [place] [address] [facility] Internal Medicine 07/21/24 Health Type Technician Relationship Specialty Start Date End Date Alicia Blount MD [address] [place] [address] PCP - General Internal Medicine 01/17/17 Clarence Berry, MOLDER PIPE COVERING.COLLEGE BASKETBALL COACH [address] [place] [address] Production Line Internal Medicine 07/21/24 Isabella Emerson APRN.RESOURCE SPECIALIST [address] [place] [address] Production Line Internal Medicine 07/21/24 Health Type Technician Relationship Specialty Start Date End Date Alicia Blount MD [address] [place] [address] PCP - General Internal Medicine 01/17/17 Clarence Berry, MOLDER PIPE COVERING.COLLEGE BASKETBALL COACH [address] [place] [address] Production Line Internal Medicine 07/21/24 Isabella Emerson APRN.RESOURCE SPECIALIST [address] [place] [address] Production Line Internal Medicine 07/21/24 Health Type Technician Relationship Specialty Start Date End Date Alicia Blount MD [address] [place] [place] [address] PCP - General Internal Medicine 01/17/17 Clarence Berry, MOLDER PIPE COVERING.COLLEGE BASKETBALL COACH [address] [place] [address] Production Line Internal Medicine 07/21/24 Isabella Emerson APRN.RESOURCE SPECIALIST [address] [facility] [place] [address] Production Line Internal Medicine 11/04/24 Health Type Technician Relationship Specialty Start Date End Date Alicia Blount MD [address] [place] [address] PCP - General Internal Medicine 01/17/17 Clarence Berry, MOLDER PIPE COVERING.COLLEGE BASKETBALL COACH [address] [place] [address] Production Line Internal Medicine 07/21/24 Isabella Emerson MOLDER PIPE COVERING.RESOURCE SPECIALIST [address] [place] [address] Production Line Internal Medicine 11/04/24 Health Type Technician Relationship Specialty Start Date End Date Alicia Blount MD [address] [place] [address] PCP - General Internal Medicine 01/17/17 Clarence Berry, MOLDER PIPE COVERING.COLLEGE BASKETBALL COACH [address] [place] [address] Production Line Internal Medicine 07/21/24 Isabella Emerson MOLDER PIPE COVERING.RESOURCE SPECIALIST [address] [place] [address] [facility] Internal Medicine 11/04/24 Health Type Technician Relationship Specialty Start Date End Date Alicia Blount MD [address] [place] [address] PCP - General Internal Medicine 01/17/17 Clarence Berry, MOLDER PIPE COVERING.COLLEGE BASKETBALL COACH [address] [place] [address] [facility] Internal Medicine 07/21/24 Isabella Emerson MOLDER PIPE COVERING.RESOURCE SPECIALIST [address] [place] [address] Production Line Internal Medicine 07/21/24 10/31/24 Isabella Emerson MOLDER PIPE COVERING.RESOURCE SPECIALIST [address] [place] [address] Production Line Internal Medicine 11/04/24 Health Type Technician Relationship Specialty Start Date End Date Alicia Blount MD [address] [place], [place] [address] PCP - General Internal Medicine 01/17/17 Isabella Emerson MOLDER PIPE COVERING.RESOURCE SPECIALIST [address] [place] [address] Production Line Internal Medicine 11/04/24 Clarence Berry, MOLDER PIPE COVERING.COLLEGE BASKETBALL COACH [address] [place] [address] [facility] Internal Medicine 12/31/24 Health Type Technician Relationship Specialty Start Date End Date Alicia Blount MD [address] [place] [address] PCP - General Internal Medicine 01/17/17 Isabella Emerson MOLDER PIPE COVERING.RESOURCE SPECIALIST [address] [place] [address] [facility] Internal Medicine 11/04/24 Clarence Berry, MOLDER PIPE COVERING.COLLEGE BASKETBALL COACH [address] [place] [address] [facility] Internal Medicine 12/31/24 Goals (unrecognized section and content) Goals may be documented in a n alternate sectionGoals may be documented in an alternate sectionGoals may be documented in an alternate sectionGoals may be documented in an alternate section INFORMATION SOURCE (unrecogn ized section and content) DATE CREATED AUTHOR 06/10/2023 [facility] DATE CREATED AUTHOR AUTHOR'S ROSY ALMANZA 03/28/2025 [facility] DATE CREATED AUTHOR AUTHOR'S ORGANIZ ATION 06/05/2025 [facility] FOR RECORDS PERTAINING TO PATIENTS WHO [...] BE BASED ON THE PRIMARY CLINICAL RECORDS. [facility] [employer] [facility]. provides no warranty or guarantee of the accuracy or completeness of information in this document.
--- NOTE | 2025-06-22 21:37 | CASEMGMT ---
Care Management Face to Face with patient for initial transition planning/care coordination assessment in the ED. This data analyst report writer introduced self and role at [facility]. Patient alert and oriented. Patient willing to participate in assessment and is able to answer all questions appropriately. Care providers, pharmacy, and demographics verified. Admitting Diagnosis: back pain Other diagnosis history: Diabetes, GERD, Hypertension, strokes PCP: Radha Specialists: Florencia, urology. Baddour, neurology. Jaxon, cardiology. Ezra, endocrinology. Preferred Pharmacy: [facility] Insurance: Medicare A B (primary). [employer] (secondary). Prescription Benefit: yes Living Will/HPOA: yes, Josr (primary), Allen (secondary), Dariel (tertiary - Allen's ). LNOK: , Josr. Daughters, Allen, Lady, and Marisol. Living Arrangements: with in a 1 story home with 2 steps and a railing to enter. Independent with all ADLs/IADLs at baseline. Transportation: drives DME: shower chair, grab bars, cane, walker, and transport chair HHC: [facility] SNF/Rehab: [facility] Community Resources: none Patient goals: Patient wishes to discharge home, but understands patient will very likely need extra care before going home. Patient desires [facility] or TCU if SNF is needed. Patient denies any further needs or concerns at this time. Disposition Plan: admission to acute; RN CM/SW to follow for discharge planning needs that may arise. Pippa Castañeda, FLIGHT OPERATIONS MANAGER, MOLDER PIPE COVERING
[2025-06-22 22:07] VITALS: BP 156/75; PULSE 82; RESP 18; TEMP 36.8; O2SAT 96
[2025-06-22 22:12] VITALS: BMI 25.0
[2025-06-22 23:32] VITALS: BP 152/59; PULSE 72
[2025-06-22] MEDS: Heparin Injection (Vial) 5,000 UNIT/ML VIAL 5000 UNIT SC (23:34)
[2025-06-23] VITALS (7 sets, daily range): BP systolic 134–147; BP diastolic 59–71; PULSE 65–70; RESP 14–18; TEMP 36.3–36.6; O2SAT 95–96
[2025-06-23] MEDS: Heparin Injection (Vial) 5,000 UNIT/ML VIAL 5000 UNIT SC ×2 (07:59→20:54)
[2025-06-23] MEDS: Cholecalciferol (VIT D3) 25 MCG TABLET (1,000 UNITS) PO (07:59)
--- NOTE | 2025-06-23 14:50 | PN_ITS ---
Subjective Subjective Patient seen and examined with her nurse by her bedside. She complained of back pain still. She had no other complaints. Review of systems is otherwise negative. Objective Data Objective Data Vital Signs: Vital Signs Temp Pulse Resp BP Pulse Ox O2 Del Method 97.5 F L 70 14 134/71 H 95 Room Air 06/23/25 14:49 06/23/25 14:49 06/23/25 14:49 06/23/25 14:49 06/23/25 14:49 06/23/25 14:49 Oxygen Delivery Method Room Air Weight: 135 lb 12.876 oz Body Mass Index (BMI) 25.0 Intake & Output: Intake and Output for Last 24 Hours 06/21/25 06/22/25 06/23/25 23:59 23:59 23:59 Intake Total 400 / 400 Output Total 400 / 400 Balance 0 / 0 Lab / Micro Data 06/22/25 20:33 06/22/25 20:33 Labs: Laboratory Results - last 24 hr 06/22/25 20:33: WBC 12.2 H, RBC 4.07 L, Hgb 12.1, Hct 36.9 L, MCV 90.7, MCH 29.7, MCHC 32.8, RDW Std Deviation 45.1 H, RDW Coeff of Win 13.6, Plt Count 222, MPV 10.1, Immature Gran % (Auto) 0.400, Neut % (Auto) 75.8 H, Lymph % (Auto) 15.4 L, Payne % (Auto) 6.8, Eos % (Auto) 1.3, Baso % (Auto) 0.3, Absolute Neuts (auto) 9.3 H, Absolute Lymphs (auto) 1.88, Nucleated RBC % 0, Sodium 138, Potassium 4.1, Chloride 103, Carbon Dioxide 22.1, Anion Gap 13, BUN 22 H, C reatinine 0.69 L, Estim Creat Clear Calc 47.26 L, Est GFR (MDRD) Non-Af 86, B UN/Creatinine Ratio 31.3 H, Glucose 236 H, Calcium 9.3 06/22/25 20:50: POC Glucose 230 H 06/22/25 23:30: POC Glucose 217 H 06/23/25 06:47: POC Glucose 149 H 06/23/25 11:36: POC Glucose 270 H Radiography Diagnostic Testing: Radiology Impression Brain CT 11/10/25 16:23 IMPRESSION: No acute intracranial process. Reading [facility] Thoracic Spine CT 06/22/25 16:23 IMPRESSION: Flexion-distraction injury of the upper thoracic spine with acute compression fracture of T3, and minimally displaced fractures of the T2 and T3 spinous processes. No subluxation. Slight dorsal retropulsion at T3 with minimal spinal canal narrowing and focal kyphotic angulation. Reading Location: [facility] Physical Exam Const alert, oriented x3 and no apparent distress Constitutional Narrative: frail General Appearance: cooperative HEENT normocephalic, moist oral mucous membranes and oropharynx normal Eyes EOMs intact bilaterally Neck supple and no JVD Lymph Lymphatic: no lymphedema noted Resp normal respiratory effort, normal air movement and clear to auscultation bilaterally Cardio regular rate, regular rhythm, S1 normal heart sound, S2 normal heart sound and no murmurs GI normal to inspection, nondistended, normoactive bowel sounds, soft to palpation and non-tender Extremity normal capillary refill, no clubbing, cyanosis or edema and no calf tenderness General Extremity: no tenderness to palpation of joints or extremities Skin General Skin Exam: no breakdown Neuro CN's II-XII intact bilaterally, no focal motor deficits and no sensory deficits noted Motor Exam: general weakness Psych thought process normal, cooperative and affect normal Appearance: appropriate Assessment & Plan Assessment/Plan (1) Back pain: (2) Fracture of spinous process of thoracic vertebra: PLAN: Plan #Back pain due to compression fracture of T3 due to mechanical fall * had a mechanical fall at home. * Complains of back pain. Thoracic spine imaging showed acute superior endplate compression fracture of T3 vertebral body with roughly 50% height loss and mild retropulsion with resultant focal kyphotic angulation at this level, and minimally displaced acute fractures of T2 adn T3 spinous processes. * CT brain showed no acute intracranial process * PT.OT on board. * on PO tylenol, oxycodone and IV morphine prn for pain. * spine surgery consulted; await recs. * #Benign essential hypertension: on clonidine patch and metoprolol. Also on lisinopril #Chronic depression; on cymbalta #Type 2 diabetes mellitus: on ISS. Accsom CONCEPCIONS #Hyperlipidemia: on statin DVT prophylaxis: SCDs Disposition: to be determined based on how she does with therapy and orthospine consult. Charges/Coding Visit Charges Inpatient E&M: 84270 Subs Hosp L2
--- NOTE | 2025-06-23 16:00 | CHAPLAIN ---
Type of Pastoral Visit _x__ Initial Visit ___ Follow-up Visit ___ On-call Visit ___ General Patient Visit ___ Spiritual Assessment ___ Family Conference ___ Bereavement ___ Rapid Response ___ Code Blue ___ Other (describe below) Pastoral Care Referral From _x__ Patient _x__ Family ___ Nurse ___ Physician ___ Accounting System Expert ___ Dip Filler ___ Other (describe below) Sacrament/Intervention __x_ Active listening ___ Anointing ___ Gnosticist ___ Bereavement ___ Communion ___ Sharifa exploration ___ _x__ Life review _x__ Prayer ___ Reconciliation ___ Sacrament of Sick _x__ Supportive presence ___ Wedding ___ Other (describe below) Pastoral Comments 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
--- NOTE | 2025-06-23 16:27 | CASEMGMT ---
RN DAMIEN NOTE: Reviewed PT/OT evals. Pt ambulated 200 ft w/use of WW, SBA, and also worked on steps. RN CM to room. Pt sitting up in chair in room. @ bedside. Discussed discharge planning. Pt states feels she will be safe to discharge home, stating, If I get just a little bit stronger. Encouraged to continue to work w/therapy while @ [facility] and ambulate w/staff assist. Pt states she and her will be moving in w/their daughter on Sunday @ [address] in [place]. This address is already listed in [address] as pt's address. The address listed under her husbands name ([address] in [place]) is where they are currently residing. Pt states her daughter's home has 2 steps to go up through the garage, then will be FFSU. She would like [facility], stating she wants [facility] again and declines wanting list of other [facility] agencies unless [facility] unable to accept her. Call placed to [facility] and spoke w/Nini. Referral made. Viral VALENCIAN RN CM
--- NOTE | 2025-06-23 17:28 | CONS.ORTHO ---
HPI Consult Data Date of Consult: 06/23/25 HPI Narrative HPI Narrative: CHRISTINA IVORY, is a 85 F who presents after fall with back pain. Fell forward and hit her head. Had a direct impact on the upper back. Describes pain in the upper back going up to the intrascapular area. Denies any pain in any of the extremities has been able to walk today. He had a stroke last year in [facility] which makes it difficult for her balance. Workup in the emergency room included a brain CT which showed no evidence of any acute intracranial pathology, thoracic spine CT was performed which showed acute superior endplate compression fracture of T3 vertebral body with roughly 50% height loss and mild retropulsion with resultant focal kyphotic angulation at this level. There was also noted to be minimally displaced acute fractures of T2 and T3 spinous processes. [facility] Medical History Diabetes GERD (gastroesophageal reflux disease) Hypertension Overactive bladder Nocturia Stress incontinence Urge incontinence Low iron Stroke/cerebrovascular accident Injury of head and neck Loss of consciousness Difficulty swallowing History of ulceration Cardiology follow-up encounter History of Holter monitoring Presence of insulin pump Osteopenia Proteinuria due to type 2 diabetes mellitus Lumbar radiculopathy, chronic Anxiety and depression Carotid artery stenosis Abnormal urinalysis Facial droop Chronic prescription benzodiazepine use Hypoxia Wears glasses MRSA infection History of Clostridium difficile infection Cancer Insulin dependent diabetes mellitus Walker as ambulation aid Arthritis Bladder disease Easy bruising Injury of back Back pain Unsteady gait Dietary restriction Non-smoker Chronic cough Hoarseness Leg cramps History of edema History of echocardiogram History of stress test Lumbar scoliosis Herniation of intervertebral disc at L3-L4 level Hyperlipidemia Debility Fatigue Mild cognitive impairment Overweight (BMI 25.0-29.9) Migraine without aura, not intractable, without status migrainosus Polyneuropathy Abnormal finding on thyroid function test Acute ischemic stroke 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 Acute gastritis Enlargement of lymph nodes Restless legs GERD (gastroesophageal reflux disease) Essential (primary) hypertension Home Medications ?Medication ?Instructions ?Recorded ?Last Taken ?Type cholecalciferol (vitamin D3) 25 25 mcg PO DAILY vitamin 30 days 10/10/24 06/22/25 Rx mcg (1,000 unit) tablet #30 tabs vit C 250 mg-vit E 90 mg-zinc 40 2 tab PO BID vitamin 11/11/24 06/22/25 History mg-copper 1 [id number] capsule (PreserVision AREDS-2) famotidine 20 mg tablet 40 mg (2 x 20 mg) PO DAILY reflux 11/27/24 06/22/25 Rx 30 days #60 tabs Lactobacillus acidophilus 1,200 mg PO QDAY supplement 01/01/25 06/22/25 History (Acidophilus capsule) ascorbic acid (vitamin C) 500 mg 500 mg PO QDAY vitamin 01/01/25 06/22/25 History tablet methenamine hippurate 1 gram tablet 1 g PO BID infection 01/01/25 06/22/25 History vibegron 75 mg tablet (Gemtesa) 75 mg PO QDAY bladder 01/01/25 06/22/25 History Handicap Placard #1 ea 01/06/25 Unknown Rx aspirin 81 mg chewable tablet 162 mg PO BREAKFAST Heart health 02/04/25 06/22/25 History duloxetine 60 mg capsule,delayed 60 mg PO QAM mental health #30 caps 02/27/25 06/22/25 Rx release insulin pump cart,auto,BT,G6/7 #30 ea 02/27/25 Unknown Rx (Omnipod 5 G6-G7 Pods (Gen 5) subcutaneous cartridge) metoprolol tartrate 50 mg tablet 50 mg PO TID blood pressure 30 03/02/25 06/22/25 Rx days #270 tabs insulin lispro 100 unit/mL 70 unit (0.7 mL) subcut DAILY 03/30/25 06/22/25 Rx subcutaneous solution (Humalog diabetes #20 mL U-100 Insulin) cyanocobalamin (vitamin B-12) 1,000 mcg PO DAILY vitamin 03/31/25 06/22/25 History 1,000 mcg capsule atorvastatin 40 mg tablet 40 mg PO DAILY cholesterol 30 days 04/06/25 06/22/25 Rx #90 tabs ipratropium bromide 42 mcg (0.06 2 spray NASAL BID allergies 30 04/25/25 06/21/25 Rx %) nasal spray days #15 mL clonidine 0.2 mg/24 hr weekly 0.2 mg transdermal We@1000 blood 06/15/25 06/15/25 Rx transdermal patch pressure 30 days #12 ea albuterol sulfate 90 mcg/actuation 2 puff inhalation Q6H PRN wheezing 06/22/25 Unknown History aerosol inhaler (Ventolin HFA) clonazepam 0.5 mg tablet 0.5 mg PO QPM PRN anxiety 06/22/25 Unknown History cyanocobalamin (vitamin B-12) .Route QMONTH supplement 06/22/25 06/22/25 History lisinopril 2.5 mg tablet 2.5 mg PO blood pressure 06/22/25 Unknown History Allergy/AdvReac Type Severity Reaction Status Date / Time shrimp Allergy Unknown unknown Verified 06/22/25 15:32 adhesive tape Allergy Hives/Rash Verified 06/22/25 15:32 ciprofloxacin (From Cipro) Allergy Photosensitivity Verified 06/22/25 15:32 & dermatitis pioglitazone (From Actos) Allergy Unknown Verified 06/22/25 15:32 codeine AdvReac Upset Verified 06/22/25 15:32 Stomach ibandronate sodium (From AdvReac GI Verified 06/22/25 15:32 Boniva) upset/esophageal burning ibuprofen AdvReac GI upset Verified 06/22/25 15:32 iodine AdvReac Vomiting Verified 06/22/25 15:32 lansoprazole AdvReac Diarrhea Verified 06/22/25 15:32 metformin AdvReac Diarrhea Verified 06/22/25 15:32 miconazole (From Neosporin AdvReac Rash/Bliste Verified 06/22/25 15:32 AF) rs nabumetone (From Relafen) AdvReac GI upset Verified 06/22/25 15:32 pantoprazole (From Protonix) AdvReac Diarrhea Verified 06/22/25 15:32 sucralfate (From Carafate) AdvReac feels Verified 06/22/25 15:32 poorly Family History Father Lung cancer Colon cancer Mother Mesothelioma Hypertension Grandmother Heart disease Other Arthritis Asthma Breast cancer CVA (cerebral vascular accident) Cancer Diabetes Hyperlipidemia Osteoporosis Surgical History Hx of colonoscopy Hx of right cataract extraction Hx of left cataract extraction History of lobectomy of lung History of lung biopsy H/O endoscopy Spinal injections S/P rotator cuff repair Social History (Reviewed 06/22/25 @ 16:39 by Cassandra Almanza adopted: No household members: spouse housing: house number of children: 4 current occupational status: retired current occupation: Worked at [employer] pets and animals: No sexually active: No Smoking Status: Never smoker second hand exposure: No alcohol intake: never substance use type: does not use diet: diabetic caffeine: No what type of physical activity do you participate in: other details: PT & OT frequency: 1-2 times per week do you feel safe at home: Yes Vital Signs Vital Signs Vital Signs: 06/22/25 18:14 06/22/25 20:00 06/22/25 22:04 Temperature 98.3 F Temperature Source Pulse Rate 73 81 Pulse Strength Respiratory Rate 16 18 Respiratory Effort Normal Non-Labored Respiratory Depth Normal Respiratory Pattern Normal Blood Pressure 154/71 H 154/83 H Blood Pressure Mean 98 106 Blood Pressure Source Blood Pressure Position Blood Pressure Location Pulse Ox 100 96 Oxygen Delivery Method Room Air Room Air 06/22/25 22:07 06/22/25 23:32 06/23/25 04:04 Temperature 98.3 F 97.8 F Temperature Source Oral Oral Pulse Rate 82 72 66 Pulse Strength Respiratory Rate 18 16 Respiratory Effort Respiratory Depth Respiratory Pattern Blood Pressure 156/75 H 152/59 H 143/63 H Blood Pressure Mean 102 89 Blood Pressure Source Monitor Monitor Blood Pressure Position Supine Semi-Fowlers Blood Pressure Location Left Arm Right Arm Pulse Ox 96 96 Oxygen Delivery Method Room Air Room Air 06/23/25 04:06 06/23/25 06:43 06/23/25 06:49 Temperature 97.4 F L Temperature Source Oral Pulse Rate 65 65 Pulse Strength Respiratory Rate 16 Respiratory Effort Normal Non-Labored Respiratory Depth Normal Respiratory Pattern Normal Blood Pressure 141/59 H 141/59 H Blood Pressure Mean 86 Blood Pressure Source Monitor Blood Pressure Position Semi-Fowlers Blood Pressure Location Left Arm Pulse Ox 96 Oxygen Delivery Method Room Air Room Air 06/23/25 08:06 06/23/25 14:48 06/23/25 14:49 Temperature 97.5 F L Temperature Source Oral Pulse Rate 70 70 Pulse Strength Normal (2+) Respiratory Rate 14 Respiratory Effort Respiratory Depth Respiratory Pattern Blood Pressure 134/71 H Blood Pressure Mean 92 Blood Pressure Source Monitor Blood Pressure Position Sitting Blood Pressure Location Right Arm Pulse Ox 95 Oxygen Delivery Method Room Air Weight Weight: 135 lb 12.876 oz Body Mass Index (BMI) 25.0 Physical Exam Narrative Examination of the thoracic region the back shows borderline tenderness in the upper and mid thoracic region. Paraspinal tenderness throughout thoracic spine. Neurologic evaluation of lower extremity shows 5 x 5 strength. There is hyperreflexia bilaterally likely related to from prior stroke. Patient on examination shows full range of painless movement. Lab / Micro Data 06/22/25 20:33 06/22/25 20:33 Labs: Laboratory Results - last 24 hr 06/22/25 20:33: WBC 12.2 H, RBC 4.07 L, Hgb 12.1, Hct 36.9 L, MCV 90.7, MCH 29.7, MCHC 32.8, RDW Std Deviation 45.1 H, RDW Coeff of Win 13.6, Plt Count 222, MPV 10.1, Immature Gran % (Auto) 0.400, Neut % (Auto) 75.8 H, Lymph % (Auto) 15.4 L, [place] % (Auto) 6.8, Eos % (Auto) 1.3, Baso % (Auto) 0.3, Absolute Neuts (auto) 9.3 H, Absolute Lymphs (auto) 1.88, Nucleated RBC % 0, Sodium 138, Potassium 4.1, Chloride 103, Carbon Dioxide 22.1, Anion Gap 13, BUN 22 H, Creatinine 0.69 L, Estim Creat Clear Calc 47.26 L, Est GFR (MDRD) Non-Af 86, BUN/Creatinine Ratio 31.3 H, Glucose 236 H, Calcium 9.3 06/22/25 20:50: POC Glucose 230 H 06/22/25 23:30: POC Glucose 217 H 06/23/25 06:47: POC Glucose 149 H 06/23/25 11:36: POC Glucose 270 H 06/23/25 16:35: POC Glucose 281 H Imaging Radiology Impression Brain CT 06/22/25 16:23 IMPRESSION: No acute intracranial process. Reading Location: [facility] Thoracic Spine CT 06/22/25 16:23 IMPRESSION: Flexion-distraction injury of the upper thoracic spine with acute compression fracture of T3, and minimally displaced fractures of the T2 and T3 spinous processes. No subluxation. Slight dorsal retropulsion at T3 with minimal spinal canal narrowing and focal kyphotic angulation. Reading Location: [facility] Assessment & Plan Assessment/Plan (1) Thoracic compression fracture: QUALIFIERS: Encounter type: initial encounter Thoracic vertebra fracture level: T3 Qualified Code(s): S22.030A - Wedge compression fracture of third thoracic vertebra, initial encounter for closed fracture PLAN: Plan Reviewed scan of the thoracic spine done yesterday in the ER. This shows T3 compression fracture spinous process fractures above and below giving a pattern of length and flexion distraction injury which is usually quite rare in this part of the spine. There is only minimal retropulsion. Explained imaging findings in detail. Patient has a compression fracture in upper thoracic spine which is difficult to brace. At this time rest pain control would likely lead to the treatment options. We will continue to follow along with periodic x-rays in clinic. Discharge would likely depend on physical therapy recommendations. Answered all questions. Orthopedics will sign off. Charges/Coding Visit Charges Inpatient E&M: 23187 Init Hosp L3
[2025-06-23] MEDS: MELATONIN 3 MG TABLET PO (20:53)
[2025-06-24 03:06] VITALS: BP 143/67; PULSE 65; RESP 18; TEMP 36.6; O2SAT 96
[2025-06-24 06:25] VITALS: BP 140/60; PULSE 68
[2025-06-24 06:28] VITALS: BP 140/60; PULSE 68
[2025-06-24 06:39] LABS: Hematocrit 33.4 % (37-47); Hemoglobin 11.3 g/dL (12.0-15.0); Immature Granulocytes Count 0.020 X10^3/uL (0.0-0.0); Mean Corp Hgb Conc 33.8 g/dL (32-36); Mean Corpuscular Volume 89.5 fL (81-99); Mean Platelet Vol. 10.2 fl (6.2-12.0); NRBC Flagged by Analyzer 0 % (0-5); Platelet Count 183 K/mm3 (150-450); RBC Distribution Width CV 13.7 % (11.6-14.6); RBC Distribution Width SD 45.0 fl (35.1-43.9); Red Blood Count 3.73 M/mm3 (4.2-5.4); White Blood Count 7.4 K/mm3 (4.4-11.0)
[2025-06-24 07:13] LABS: Anion Gap 9 (5-15); BUN 20 mg/dL (4-19); BUN/Creat Ratio 34.4 RATIO (10-20); Calcium,Total 9.1 mg/dL (7.6-11.0); Carbon Dioxide 25.2 mmol/L (21.0-32.0); Chloride 101 mmol/L (98-108); Estimated Creatinine Clearance 44.85 ml/min (50-250); Glucose 297 mg/dL (70-99); Potassium 4.3 mmol/L (3.3-5.1)
[2025-06-24 08:17] VITALS: BP 135/65; PULSE 76; RESP 16; TEMP 35.6; O2SAT 94
[2025-06-24] MEDS: Cholecalciferol (VIT D3) 25 MCG TABLET (1,000 UNITS) PO (08:28)
[2025-06-24] MEDS: Heparin Injection (Vial) 5,000 UNIT/ML VIAL 5000 UNIT SC (08:29)
[2025-06-24 14:34] VITALS: BP 137/65; PULSE 69; RESP 16; TEMP 36.6; O2SAT 97
[2025-06-24 14:37] VITALS: PULSE 69
--- NOTE | 2025-06-24 15:33 | CASEMGMT ---
MANNY CM into pt room, pt sitting up in chair with family member at bedside. Pt states her plan is home with [facility]. She is aware that [facility] has accepted her. She states tomorrow she will be at the old address on and the movers will be there on Sunday to move to the new address. TC marianela Dewey at [facility], she is aware. She will be in touch with pt on day of admission to [facility]. Updated hospitalist on dc plan.
--- NOTE | 2025-06-24 16:19 | DS.PCM_ITS ---
Providers Date of Admission: 06/22/25 Date of Discharge: 06/24/25 Primary Care Physician: Dr. Liliya Garcia MD Consultations 06/22/25 21:57 Consult: Orthopedics Routine Consulting Provider: Shashi Bonds Reason for Consult: Thoracic compression fracture EMERGENT Consult: No MD Notified: Yes Date Notified: 06/22/25 Time Notified: 21:09 Method of Notification: Verbal Reason For Visit: THORACIC COMPRESSION FRACTURE Diagnosis Discharge Diagnosis (1) Thoracic compression fracture: Status: Acute Code(s): S22.000A - Wedge compression fracture of unspecified thoracic vertebra, initial encounter for closed fracture Qualifiers: Encounter type: initial encounter Thoracic vertebra fracture level: T3 Qualified Code(s): S22.030A - Wedge compression fracture of third thoracic vertebra, initial encounter for closed fracture Plan #Back pain due to compression fracture of T3 due to mechanical fall * had a mechanical fall at home. * Complains of back pain. Thoracic spine imaging showed acute superior endplate compression fracture of T3 vertebral body with roughly 50% height loss and mild retropulsion with resultant focal kyphotic angulation at this level, and minimally displaced acute fractures of T2 adn T3 spinous processes. * CT brain showed no acute intracranial process * PT.OT on board. * on PO tylenol, oxycodone and IV morphine prn for pain. * spine surgery consulted; await recs. * #Benign essential hypertension: on clonidine patch and metoprolol. Also on lisinopril #Chronic depression; on cymbalta #Type 2 diabetes mellitus: on ISS. Accuchecks ACHS #Hyperlipidemia: on statin DVT prophylaxis: SCDs Disposition: to be determined based on how she does with therapy and orthospine consult. Medications at Discharge Home Medications cholecalciferol (vitamin D3) 25 mcg (1,000 unit) tablet 25 mcg PO DAILY vitamin 30 days #30 tabs 10/10/24 vit C 250 mg-vit E 90 mg-zinc 40 mg-copper 1 [id number] capsule (PreserVision AREDS-2) 2 tab PO BID vitamin 11/11/24 famotidine 20 mg tablet 40 mg (2 x 20 mg) PO DAILY reflux 30 days #60 tabs 11/27/24 Lactobacillus acidophilus (Acidophilus capsule) 1,200 mg PO QDAY supplement 01/01/25 ascorbic acid (vitamin C) 500 mg tablet 500 mg PO QDAY vitamin 01/01/25 methenamine hippurate 1 gram tablet 1 g PO BID infection 01/01/25 vibegron 75 mg tablet (Gemtesa) 75 mg PO QDAY bladder 01/01/25 Handicap Placard #1 ea 01/06/25 aspirin 81 mg chewable tablet 162 mg PO BREAKFAST Heart health 02/04/25 duloxetine 60 mg capsule,delayed release 60 mg PO QAM mental health #30 caps 02/27/25 insulin pump cart,auto,BT,G6/7 (Omnipod 5 G6-G7 Pods (Gen 5) subcutaneous cartridge) #30 ea 02/27/25 metoprolol tartrate 50 mg tablet 50 mg PO TID blood pressure 30 days #270 tabs 03/02/25 insulin lispro 100 unit/mL subcutaneous solution (Humalog U-100 Insulin) 70 unit (0.7 mL) subcut DAILY diabetes #20 mL 03/30/25 cyanocobalamin (vitamin B-12) 1,000 mcg capsule 1,000 mcg PO DAILY vitamin 03/31/25 atorvastatin 40 mg tablet 40 mg PO DAILY cholesterol 30 days #90 tabs 04/06/25 ipratropium bromide 42 mcg (0.06 %) nasal spray 2 spray NASAL BID allergies 30 days #15 mL 04/25/25 clonidine 0.2 mg/24 hr weekly transdermal patch 0.2 mg transdermal We@1000 blood pressure 30 days #12 ea 06/15/25 albuterol sulfate 90 mcg/actuation aerosol inhaler (Ventolin HFA) 2 puff inhalation Q6H PRN wheezing 06/22/25 clonazepam 0.5 mg tablet 0.5 mg PO QPM PRN anxiety 06/22/25 cyanocobalamin (vitamin B-12) .Route QMONTH supplement 06/22/25 lisinopril 2.5 mg tablet 2.5 mg PO blood pressure 06/22/25 oxycodone 5 mg tablet 5 mg PO Q4H PRN PRN Pain Score 4-10 3 days #18 tabs 06/24/25 Hospital Course Operations None Procedures None Summary of Care Provided Minutes Spent on Discharge: 45 Hospital Course: Patient is an 85-year-old female with past medical history as outlined was admitted to the ED on 06/22/2025 with a complaint of low back pain and mechanical fall. She ended up injuring her head, right elbow and back and complaining of mid and upper back pain. CT of the brain showed no acute intracranial pathology. CT of the thoracic spine showed an acute superior endplate compression fracture of T3 vertebral body with roughly 50% height loss and mild retropulsion with resultant focal kyphotic angulation and minimally displaced acute fractures of T2 and T3 spinous processes. She was admitted and managed for debility and weakness due to compression fractures of the thoracic spine as a result of mechanical fall. PT OT was consulted. She was placed on pain medication and did well with physical therapy. She was therefore deemed as being able to go home with home therapy. He was discharged home on 06/24/2025. She was discharged on p.o. oxycodone 5 mg every 4 hours as needed for total of 18 tablets for 3 days. OARRS score was checked and no red flags were seen. Patient seen and examined prior to discharge. Her was by her bedside. She felt much better and had no complaints. She was willing to go home with home therapy. Review of systems otherwise negative. Labs and vitals reviewed. Home medication reviewed and reconciled. She was also referred to spine surgery Dr. Molina on discharge. Physical Exam Const alert, oriented x3 and no apparent distress Constitutional Narrative: frail General Appearance: cooperative and comfortable Orientation / Consciousness: awake and oriented to place HEENT normocephalic, head/scalp atraumatic, hearing grossly normal bilaterally and moist oral mucous membranes Eyes PERRL, EOMs intact bilaterally and conjunctivae normal Neck supple, no JVD, thyroid normal and no carotid bruits General: trachea midline Lymph Lymphatic: no lymphedema noted Resp normal respiratory effort, normal air movement, no retractions, no use of accessory muscles and clear to auscultation bilaterally Cardio regular rate, regular rhythm, S1 normal heart sound, S2 normal heart sound, no murmurs, no rub and no gallops GI normal to inspection, nondistended, normoactive bowel sounds, soft to palpation, non-tender and non-distended Extremity normal to inspection, full ROM, normal capillary refill, no clubbing, cyanosis or edema and no calf tenderness General Extremity: no tenderness to palpation of joints or extremities Skin no rashes or lesions noted General Skin Exam: no breakdown Neuro oriented x3, CN's II-XII intact bilaterally, moves all extremities, no focal motor deficits and no sensory deficits noted Sensorium / Orientation: awake and alert Speech: speech normal Motor Exam: general weakness Psych thought process normal, cooperative and affect normal Appearance: appropriate Weight / BMI Weight Weight: 135 lb 12.876 oz Body Mass Index (BMI) 25.0 ABG / Lab / Microbiology Data 06/24/25 06:07 06/24/25 06:07 Laboratory: Laboratory Results - last 24 hr 06/23/25 16:35: POC Glucose 281 H 06/24/25 06:07: WBC 7.4, RBC 3.73 L, Hgb 11.3 L, Hct 33.4 L, MCV 89.5, MCH 30.3, MCHC 33.8, RDW Std Deviation 45.0 H, RDW Coeff of Win 13.7, Plt Count 183, MPV 10.2, Immature Gran % (Auto) 0.300, Neut % (Auto) 66.2, Lymph % (Auto) 22.9, Mcculloch % (Auto) 7.8, Eos % (Auto) 2.4, Baso % (Auto) 0.4, Absolute Neuts (auto) 4.9, Absolute Lymphs (auto) 1.69, Nucleated RBC % 0, Sodium 136, Potassium 4.3, Chloride 101, Carbon Dioxide 25.2, Anion Gap 9, BUN 20 H, Creatinine 0.59 L, E stim Creat Clear Calc 44.85 L, Est GFR (MDRD) Non-Af 89, BUN/Creatinine Ratio 34.4 H, Glucose 297 H, Calcium 9.1 06/24/25 06:27: POC Glucose 272 H 06/24/25 11:16: POC Glucose 285 H D/C Instructions Discharge Activity: Return to Normal Activity Weight Bearing Status: Weight bearing as tolerated Call your doctor if you observe: Fever of 101 or Higher, Shortness of breath, Dizziness, Swelling in the ankles and Chest pain DC O2, CPAP, BIPAP Needs Home O2 Discharge instructions: No DC home with Oxygen: No Meaningful Use Info Meaningful Use Meaningful Use Diagnoses (Choose all that apply): None applicable Discharge Plan Admission Admit Date/Time: 06/22/25 21:04 Primary Reason for Your Visit: debility to compression fracture from mechanical fall Attending Provider: Darcy Santana Primary Care Provider: Liliya Garcia Consulting Providers: Shashi Bonds; Christian Hollingsworth Instructions Patient Instructions: ED Back Pain (Acute or Chronic), ED Fall Prevention Discharge Orders/Prescriptions Prescriptions: New oxycodone 5 mg Tablet 5 mg PO Q4H PRN PRN (Reason: Pain Score 4-10) 3 Days Qty: 18 0RF Continued PreserVision AREDS-2 250-90-40-1 mg capsule 2 tab PO BID methenamine hippurate 1 gram tablet 1 g PO BID ascorbic acid (vitamin C) 500 mg tablet 500 mg PO QDAY Acidophilus Capsule 1,200 mg PO QDAY Gemtesa 75 mg tablet 75 mg PO QDAY aspirin 81 mg tablet,chewable 162 mg PO BREAKFAST duloxetine 60 mg capsule,delayed release(DR/EC) 60 mg PO QAM Qty: 30 5RF cholecalciferol (vitamin D3) 25 mcg (1,000 unit) Tablet 25 mcg PO DAILY 30 Days Qty: 30 0RF cyanocobalamin (vitamin B-12) .Route QMONTH Patient Comments: Takes a shot once a month on the albuterol sulfate [Ventolin HFA] 90 mcg/actuation HFA aerosol inhaler 2 puff INHALATION Q6H PRN (Reason: wheezing) clonazepam 0.5 mg tablet 0.5 mg PO QPM PRN (Reason: anxiety) lisinopril 2.5 mg tablet 2.5 mg PO cyanocobalamin (vitamin B-12) 1,000 mcg capsule 1,000 mcg PO DAILY famotidine 20 mg tablet 40 mg PO DAILY 30 Days Qty: 60 4RF (DME) Handicap Placard See Rx Instructions .Route .MEDSUPPLY Qty: 1 0RF Rx Instructions: handicap placard expiring one year 01-06-26 (DME) Omnipod 5 G6-G7 Pods (Gen 5) Cartridge See Rx Instructions .Route Qty: 30 3RF Rx Instructions: change every 3 days. metoprolol tartrate 50 mg tablet 50 mg PO TID 30 Days Qty: 270 0RF insulin lispro [Humalog U-100 Insulin] 100 unit/mL solution 70 unit subcut DAILY Qty: 20 8RF Patient Comments: states when her daughter fills it she fills it with 200 units and it lasts for 3 days. Rx Instructions: via insulin pump atorvastatin 40 mg tablet 40 mg PO DAILY 30 Days Qty: 90 0RF ipratropium bromide 42 mcg (0.06 %) spray,non-aerosol 2 spray NASAL BID 30 Days Qty: 15 0RF clonidine 0.2 mg/24 hr patch weekly 0.2 mg transdermal We@1000 30 Days Qty: 12 0RF Patient Comments: last changed 06/15/25 Referrals / Follow Up: Liliya Garcia MD [Primary Care Provider, Internal Medicine] - Within 1 Week Shashi Bonds MD [Med Staff - Active Staff, Orthopedics] - Within 2 Weeks Disposition Disposition (needs filled in before D/C Order can be placed): Home Health Service Charges/Coding Visit Charges Inpatient E&M: 97320 Disch Hosp >30min
== END 2025-06-24 19:35 | disposition home health service (06) | DRG 552 ==
LOC: ED 19:52 → MS3 21:14
PROVIDERS: Admitting Provider Internal Medicine; Emergency Provider Emergency Medicine; PCP Internal Medicine; Visit Provider Student in an Organized Health Care Education/Training Program
DX: S22.030A Wedge compression fracture of third thoracic vertebra, initial encounter for closed fracture (principal); M80.08XA Age-related osteoporosis with current pathological fracture, vertebra(e), initial encounter for fracture; E11.9 Type 2 diabetes mellitus without complications; I10 Essential (primary) hypertension; S22.028A Other fracture of second thoracic vertebra, initial encounter for closed fracture; E78.5 Hyperlipidemia, unspecified; K21.9 Gastro-esophageal reflux disease without esophagitis; S00.93XA Contusion of unspecified part of head, initial encounter; Z79.4 Long term (current) use of insulin; F41.8 Other specified anxiety disorders; W18.30XA Fall on same level, unspecified, initial encounter; Z96.41 Presence of insulin pump (external) (internal); Z86.73 Personal history of transient ischemic attack (TIA), and cerebral infarction without residual deficits; Z79.82 Long term (current) use of aspirin; Z98.41 Cataract extraction status, right eye; Z98.42 Cataract extraction status, left eye; Y92.009 Unspecified place in unspecified non-institutional (private) residence as the place of occurrence of the external cause; Z79.899 Other long term (current) drug therapy
CPT/HCPCS: 36415; 70450; 72128; 80048; 82962; 85025; 94668; 97162; 97167; 97530; 97535; 99285; A4216

== ENCOUNTER 2025-07-02 10:43 | Emergency (ER) | payer MEDICARE, OTHER, SELFPAY ==
[2025-07-02 10:44] VITALS: BP 153/75; PULSE 65; RESP 16; TEMP 36.6; O2SAT 100; BMI 24.9
--- NOTE | 2025-07-02 11:21 | ED.VIS.BACK ---
HPI History of Present Illness Chief Complaint: Back Narrative Narrative: Chief complaint and HPI: 85-year-old female with past medical history of osteopenia, HTN, CVA, HLD, DM, depression and anxiety who presents for evaluation of thoracic back pain. History taken by patient, family member, discharge summary on 06/24/2025. Patient has a history of frequent falls in which she uses a walker at baseline to ambulate. She had a recent fall in which she was admitted due to back pain from compression fracture of T3 with minimal displaced acute fractures of T2 and T3 spinous processes. Patient was ultimately discharged on oxycodone one. She is able to go home with home therapy. Family states that patient and her recently moved into their daughter's house. Patient has been doing a lot of physical activity such as lifting and moving boxes. Patient states her thoracic back pain has become more aggravated. She is still taking oxycodone. She denies any numbness or tingling. Is following up with Dr. Molina. Family states that patient was unable to get out of the bed today secondary to her pain. Prior to that patient states that she was moving just fine and her walker. She denies any fever, chills, shortness of breath, chest pain abdominal pain, nausea, vomiting, dysuria. Review of systems: See HPI Medications: As listed on the chart Allergies: As listed on the chart PFSH: Per chart Vital signs: As listed on the chart. Reviewed. Physical exam: Gen: A&O x3, NAD Head: Normocephalic, atraumatic Eyes: No sclera icterus, conjunctiva clear ENT: Moist mucous membranes Neck: Trachea midline, full range of motion, nontender CV: RRR, no murmurs, no peripheral edema Resp: Lungs CTA BL, no w/r/c GI: Abd soft, non-distended, non-tender, no r/r/g Musc: Moves all extremities, generalized weakness, strength equal in all extremities, radial/DP/PT pulses +2 bilaterally, no midline spinal tenderness, no bony step-offs, patient does have tenderness to palpation of the paraspinal musculature on the left corresponding to about T3-T5, palpation recreates her pain-muscles are tense-no external signs of trauma or infection Skin: Warm, dry Neuro: Alert, oriented, grossly intact, sensation intact Psych: Cooperative, appropriate mood and affect PFSH PFSH Medical History Diabetes GERD (gastroesophageal reflux disease) Hypertension Overactive bladder Nocturia Stress incontinence Urge incontinence Low iron Stroke/cerebrovascular accident Injury of head and neck Loss of consciousness Difficulty swallowing History of ulceration Cardiology follow-up encounter History of Holter monitoring Presence of insulin pump Osteopenia Proteinuria due to type 2 diabetes mellitus Lumbar radiculopathy, chronic Anxiety and depression Carotid artery stenosis Abnormal urinalysis Facial droop Chronic prescription benzodiazepine use Hypoxia Wears glasses MRSA infection History of Clostridium difficile infection Cancer Insulin dependent diabetes mellitus Walker as ambulation aid Arthritis Bladder disease Easy bruising Injury of back Back pain Unsteady gait Dietary restriction Non-smoker Chronic cough Hoarseness Leg cramps History of edema History of echocardiogram History of stress test Lumbar scoliosis Herniation of intervertebral disc at L3-L4 level Hyperlipidemia Debility Fatigue Mild cognitive impairment Overweight (BMI 25.0-29.9) Migraine without aura, not intractable, without status migrainosus Polyneuropathy Abnormal finding on thyroid function test Acute ischemic stroke 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 Acute gastritis Enlargement of lymph nodes Restless legs GERD (gastroesophageal reflux disease) Essential (primary) hypertension Home Medications ?Medication ?Instructions ?Recorded ?Last Taken ?Type cholecalciferol (vitamin D3) 25 25 mcg PO DAILY vitamin 30 days 10/10/24 06/22/25 Rx mcg (1,000 unit) tablet #30 tabs vit C 250 mg-vit E 90 mg-zinc 40 2 tab PO BID vitamin 11/11/24 06/22/25 History mg-copper 1 pg-lehahc-danzce capsule (PreserVision AREDS-2) famotidine 20 mg tablet 40 mg (2 x 20 mg) PO DAILY reflux 11/27/24 06/22/25 Rx 30 days #60 tabs Lactobacillus acidophilus 1,200 mg PO QDAY supplement 01/01/25 06/22/25 History (Acidophilus capsule) ascorbic acid (vitamin C) 500 mg 500 mg PO QDAY vitamin 01/01/25 06/22/25 History tablet methenamine hippurate 1 gram tablet 1 g PO BID infection 01/01/25 06/22/25 History vibegron 75 mg tablet (Gemtesa) 75 mg PO QDAY bladder 01/01/25 06/22/25 History Handicap Placard #1 ea 01/06/25 Unknown Rx aspirin 81 mg chewable tablet 162 mg PO BREAKFAST Heart health 02/04/25 06/22/25 History duloxetine 60 mg capsule,delayed 60 mg PO QAM mental health #30 caps 02/27/25 06/22/25 Rx release insulin pump cart,auto,BT,G6/7 #30 ea 02/27/25 Unknown Rx (Omnipod 5 G6-G7 Pods (Gen 5) subcutaneous cartridge) metoprolol tartrate 50 mg tablet 50 mg PO TID blood pressure 30 03/02/25 06/22/25 Rx days #270 tabs insulin lispro 100 unit/mL 70 unit (0.7 mL) subcut DAILY 03/30/25 06/22/25 Rx subcutaneous solution (Humalog diabetes #20 mL U-100 Insulin) cyanocobalamin (vitamin B-12) 1,000 mcg PO DAILY vitamin 03/31/25 06/22/25 History 1,000 mcg capsule atorvastatin 40 mg tablet 40 mg PO DAILY cholesterol 30 days 04/06/25 06/22/25 Rx #90 tabs ipratropium bromide 42 mcg (0.06 2 spray NASAL BID allergies 30 04/25/25 06/21/25 Rx %) nasal spray days #15 mL clonidine 0.2 mg/24 hr weekly 0.2 mg transdermal We@1000 blood 06/15/25 06/15/25 Rx transdermal patch pressure 30 days #12 ea albuterol sulfate 90 mcg/actuation 2 puff inhalation Q6H PRN wheezing 06/22/25 Unknown History aerosol inhaler (Ventolin HFA) clonazepam 0.5 mg tablet 0.5 mg PO QPM PRN anxiety 06/22/25 Unknown History cyanocobalamin (vitamin B-12) .Route QMONTH supplement 06/22/25 06/22/25 History lisinopril 2.5 mg tablet 2.5 mg PO blood pressure 06/22/25 Unknown History oxycodone 5 mg tablet 5 mg PO Q4H PRN PRN Pain Score 07/01/25 Unknown Rx 4-10 3 days #18 tabs Allergy/AdvReac Type Severity Reaction Status Date / Time shrimp Allergy Unknown unknown Verified 06/22/25 15:32 adhesive tape Allergy Hives/Rash Verified 06/22/25 15:32 ciprofloxacin (From Cipro) Allergy Photosensitivity Verified 06/22/25 15:32 & dermatitis pioglitazone (From Actos) Allergy Unknown Verified 06/22/25 15:32 codeine AdvReac Upset Verified 06/22/25 15:32 Stomach ibandronate sodium (From AdvReac GI Verified 06/22/25 15:32 Boniva) upset/esophageal burning ibuprofen AdvReac GI upset Verified 06/22/25 15:32 iodine AdvReac Vomiting Verified 06/22/25 15:32 lansoprazole AdvReac Diarrhea Verified 06/22/25 15:32 metformin AdvReac Diarrhea Verified 06/22/25 15:32 miconazole (From Neosporin AdvReac Rash/Bliste Verified 06/22/25 15:32 AF) rs nabumetone (From Relafen) AdvReac GI upset Verified 06/22/25 15:32 pantoprazole (From Protonix) AdvReac Diarrhea Verified 06/22/25 15:32 sucralfate (From Carafate) AdvReac feels Verified 06/22/25 15:32 poorly Family History Father Lung cancer Colon cancer Mother Mesothelioma Hypertension Grandmother Heart disease Other Arthritis Asthma Breast cancer CVA (cerebral vascular accident) Cancer Diabetes Hyperlipidemia Osteoporosis Surgical History Hx of colonoscopy Hx of right cataract extraction Hx of left cataract extraction History of lobectomy of lung History of lung biopsy H/O endoscopy Spinal injections S/P rotator cuff repair Social History (Updated 07/02/25 @ 10:59 by Cassandra Gardner) adopted: No household members: spouse and family housing: house number of children: 4 current occupational status: retired current occupation: Worked at the [employer] pets and animals: No sexually active: No Smoking Status: Never smoker second hand exposure: No alcohol intake: never substance use type: does not use diet: diabetic caffeine: No what type of physical activity do you participate in: other details: PT & OT frequency: 1-2 times per week do you feel safe at home: Yes EXAM Physical Exam Const Vital Signs: 07/02/25 10:44 07/02/25 12:21 07/02/25 14:07 Temperature 97.9 F Temperature Source Oral Pulse Rate 65 69 66 Respiratory Rate 16 19 H 20 H Blood Pressure 153/75 H 129/61 H Blood Pressure Mean 101 83 Pulse Ox 100 97 100 Oxygen Delivery Method Room Air Room Air MDM MDM MDM Narrative Medical decision making narrative: 85-year-old female with past medical history of osteopenia, HTN, CVA, HLD, DM, depression and anxiety who presents for evaluation of thoracic back pain. History taken by patient, family member, discharge summary on 06/24/2025. Patient has a history of frequent falls in which she uses a walker at baseline to ambulate. She had a recent fall in which she was admitted due to back pain from compression fracture of T3 with minimal displaced acute fractures of T2 and T3 spinous processes. Patient was ultimately discharged on oxycodone one. Family states that patient and her recently moved into their daughter's house. Patient has been doing a lot of physical activity such as lifting and moving boxes. Patient states her thoracic back pain has become more aggravated. She denies any numbness, tingling, other symptoms. Differential diagnosis includes but is not limited to myofascial spasm,symptomatic known thoracic fractures, new spinal fractures, suspect less likely ACS or pneumothorax. Morphine and Zofran ordered for symptoms. Cardiac workup ordered including CT of the thoracic spine. CBC without leukocytosis or anemia. Platelets unremarkable. BMP relatively unremarkable. Troponin 15 and 15. Suspect this is patient's baseline. Not having any chest pain. CT of the thoracic spine shows an almost complete collapse of T3 vertebral as compared to prior study with stable avulsion fracture of the SP's of T2 and T3. Given this new finding/worsening compression fracture did consult Dr. Molina. He personally reviewed the imaging. Given the location, patient not a candidate for back brace. No need for acute surgical intervention. Recommend no lifting and rest. Patient will be ambulated to assess for PT/OT needs. Patient ambulated well with a walker. Patient is comfortable discharging home. She has oxycodone at home as needed for pain. Follow-up with Dr. Molina of primary care physician. Return precautions explained. She confirmed understand the plan. Patient will discharge home. EKG: Interpreted by me/EM physician: EKG shows normal sinus rhythm without any acute ischemic changes. Heart rate 67 Diagnostic: Interpreted by me/EM physician: Chest x-ray without pneumonia, effusion, cardiomegaly, pneumothorax. Radiology in agreement. Impression: 1. T3 compression fracture, known but worsened from prior 2. History of T2 and T3 spinous process fractures Lab Data Labs: Laboratory Results - last 24 hr 07/02/25 07/02/25 07/02/25 11:35 13:22 13:49 WBC 6.9 RBC 4.42 Hgb 13.4 Hct 39.9 MCV 90.3 MCH 30.3 MCHC 33.6 RDW Std Deviation 46.6 H RDW Coeff of Win 14.2 Plt Count 279 MPV 9.2 Immature Gran % (Auto) 0.100 Neut % (Auto) 67.5 Lymph % (Auto) 21.7 Sunflower % (Auto) 8.1 Eos % (Auto) 2.0 Baso % (Auto) 0.6 Absolute Neuts (auto) 4.7 Absolute Lymphs (auto) 1.50 Nucleated RBC % 0 Sodium 139 Potassium 4.3 Chloride 101 Carbon Dioxide 25.6 Anion Gap 12 BUN 15 Creatinine 0.79 Estim Creat Clear Calc 44.82 L Est GFR (MDRD) Non-Af 74 BUN/Creatinine Ratio 18.6 Glucose 161 H Calcium 9.6 Troponin T High Sens 15 H Troponin T Hi Sens 2 Hr 15 H POC Glucose 152 H Radiography Diagnostic Testing: Clinical Impression(s) from Imaging Studies Thoracic Spine CT 07/02/25 12:20 IMPRESSION: Almost complete collapse of the T3 vertebrae as compared to prior study with stable avulsion fracture of the spinous process of the T2 and T3 spinous processes. Kyphosis. Reading Location: [id number] Chest X-Ray 07/02/25 12:38 IMPRESSION: No acute infiltrate or consolidation is identified. Reading Location: [facility] Discharge Plan Triage Chief Complaint: Back ED Provider: Keenan Frances Dx/Rx/DC Orders Prescriptions: No Action PreserVision AREDS-2 250-90-40-1 mg capsule 2 tab PO BID methenamine hippurate 1 gram tablet 1 g PO BID ascorbic acid (vitamin C) 500 mg tablet 500 mg PO QDAY Acidophilus Capsule 1,200 mg PO QDAY Gemtesa 75 mg tablet 75 mg PO QDAY aspirin 81 mg tablet,chewable 162 mg PO BREAKFAST duloxetine 60 mg capsule,delayed release(DR/EC) 60 mg PO QAM Qty: 30 5RF cholecalciferol (vitamin D3) 25 mcg (1,000 unit) Tablet 25 mcg PO DAILY 30 Days Qty: 30 0RF cyanocobalamin (vitamin B-12) .Route QMONTH Patient Comments: Takes a shot once a month on the albuterol sulfate [Ventolin HFA] 90 mcg/actuation HFA aerosol inhaler 2 puff INHALATION Q6H PRN (Reason: wheezing) clonazepam 0.5 mg tablet 0.5 mg PO QPM PRN (Reason: anxiety) lisinopril 2.5 mg tablet 2.5 mg PO cyanocobalamin (vitamin B-12) 1,000 mcg capsule 1,000 mcg PO DAILY famotidine 20 mg tablet 40 mg PO DAILY 30 Days Qty: 60 4RF (DME) Handicap Placard See Rx Instructions .Route .MEDSUPPLY Qty: 1 0RF Rx Instructions: handicap placard expiring one year 01-06-26 (DME) Omnipod 5 G6-G7 Pods (Gen 5) Cartridge See Rx Instructions .Route Qty: 30 3RF Rx Instructions: change every 3 days. metoprolol tartrate 50 mg tablet 50 mg PO TID 30 Days Qty: 270 0RF insulin lispro [Humalog U-100 Insulin] 100 unit/mL solution 70 unit subcut DAILY Qty: 20 8RF Patient Comments: states when her daughter fills it she fills it with 200 units and it lasts for 3 days. Rx Instructions: via insulin pump atorvastatin 40 mg tablet 40 mg PO DAILY 30 Days Qty: 90 0RF ipratropium bromide 42 mcg (0.06 %) spray,non-aerosol 2 spray NASAL BID 30 Days Qty: 15 0RF clonidine 0.2 mg/24 hr patch weekly 0.2 mg transdermal We@1000 30 Days Qty: 12 0RF Patient Comments: last changed 06/15/25 oxycodone 5 mg tablet 5 mg PO Q4H PRN PRN (Reason: Pain Score 4-10) 3 Days Qty: 18 0RF Primary Care Provider: Liliya Garcia Referrals: Liliya Garcia MD [Primary Care Provider, Internal Medicine] Print Language: Guyanese
[2025-07-02 11:44] LABS: Hematocrit 39.9 % (37-47); Hemoglobin 13.4 g/dL (12.0-15.0); Immature Granulocytes Count 0.010 X10^3/uL (0.0-0.0); Mean Corp Hgb Conc 33.6 g/dL (32-36); Mean Corpuscular Volume 90.3 fL (81-99); Mean Platelet Vol. 9.2 fl (6.2-12.0); NRBC Flagged by Analyzer 0 % (0-5); Platelet Count 279 K/mm3 (150-450); RBC Distribution Width CV 14.2 % (11.6-14.6); RBC Distribution Width SD 46.6 fl (35.1-43.9); Red Blood Count 4.42 M/mm3 (4.2-5.4); White Blood Count 6.9 K/mm3 (4.4-11.0)
[2025-07-02 12:16] LABS: Troponin T High Sensitivity 15 ng/L (<=14)
[2025-07-02 12:18] LABS: Anion Gap 12 (5-15); BUN 15 mg/dL (4-19); BUN/Creat Ratio 18.6 RATIO (10-20); Calcium,Total 9.6 mg/dL (7.6-11.0); Carbon Dioxide 25.6 mmol/L (21.0-32.0); Chloride 101 mmol/L (98-108); Estimated Creatinine Clearance 44.82 ml/min (50-250); Glucose 161 mg/dL (70-99); Potassium 4.3 mmol/L (3.3-5.1)
--- NOTE | 2025-07-02 12:20 | CT_ITS ---
PROCEDURE: SPINE THORACIC WITHOUT CONTRAS 07/02/2025 REASON FOR EXAM: BACK PAIN Pain between the to shoulders. TECHNIQUE: Procedure Code: CTSPTH Modality: CT Procedure: SPINE THORACIC WITHOUT CONTRAS Coronal and Sagittal reconstruction series were provided. One or more dose reduction techniques were used (e.g., Automated exposure control, adjustment of the mA and/or kV according to patient size, use of iterative reconstruction technique). RADIATION DOSE SUMMARY: CTDlvol: 18.77 mGy DLP: 695.24 mGycm COMPARISON: June 22, 2025 FINDINGS: Alignmen increased kyphosis. Bones: Almost complete compression of the T3 vertebrae. This is new as compared to prior study. There is an avulsion fracture of the spinous process of the T2 and T3 Soft Tissues: Atherosclerotic calcification of the descending thoracic aorta. Other: Tiny left pleural effusion. Coronary artery calcification. CT/Spine Thoracic without Contras IMPRESSION: Almost complete collapse of the T3 vertebrae as compared to prior study with st able avulsion fracture of the spinous process of the T2 and T3 spinous processes. Kyphosis. Reading Location: [id number]
[2025-07-02 12:21] VITALS: PULSE 69; RESP 19; O2SAT 97
--- NOTE | 2025-07-02 12:38 | RAD_ITS ---
PROCEDURE: CHEST PA AND LATERAL 07/02/2025 REASON FOR EXAM: THORACIC BACK PAIN TECHNIQUE: Procedure Code: RADCXR Modality: DX Procedure: CHEST PA AND LATERAL COMPARISON: April 07, 2025 FINDINGS: Heart size and mediastinal configuration are within normal limits. There is minimal atelectasis or scar at the left lung base. There is no acute infiltrate or consolidation. There is no pneumothorax or effusion. There is no acute bony abnormality. Aortic calcifications are noted. RAD/Chest PA and Lateral IMPRESSION: No acute infiltrate or consolidation is identified. Reading Location: [facility]
[2025-07-02 14:07] VITALS: BP 129/61; PULSE 66; RESP 20; O2SAT 100
[2025-07-02 14:11] LABS: Troponin T High Sens 2 HR 15 ng/L (<=14)
[2025-07-02 15:07] VITALS: BP 137/71; PULSE 71; RESP 18; TEMP 35.9; O2SAT 100
== END 2025-07-02 15:08 | disposition home or self-care (01) ==
PROVIDERS: Emergency Provider Surgery; PCP Internal Medicine; Visit Provider Surgery
DX: M48.54XA Collapsed vertebra, not elsewhere classified, thoracic region, initial encounter for fracture (principal); E11.9 Type 2 diabetes mellitus without complications; Z79.4 Long term (current) use of insulin; E78.5 Hyperlipidemia, unspecified; I10 Essential (primary) hypertension; K21.9 Gastro-esophageal reflux disease without esophagitis
CPT/HCPCS: 71046; 72128; 80048; 82962; 84484; 85025; 93005; 96374; 96375; 99285; A4216; J2405

== ENCOUNTER → 2025-07-23 | Outpatient (CLI) | payer MEDICARE, OTHER, SELFPAY ==
--- NOTE | 2025-07-23 14:10 | MRI_ITS ---
PROCEDURE: SPINE THORACIC (ROUTINE) 07/23/2025 REASON FOR EXAM: FRACTURE TECHNIQUE: Procedure Code: MRISPT Modality: MR Procedure: SPINE THORACIC (ROUTINE) Multiplanar and multisequence images were obtained. COMPARISON: None. FINDINGS: Vertebrae: Subacute fracture at T3 vertebral body with 50% height loss and 2 mm retropulsion. Disc levels: Unremarkable. Alignment: Normal line. Spinal Cord: Unremarkable. MRI/Spine Thoracic (Routine) IMPRESSION: Likely subacute fracture at T3 vertebral body with 50% height loss and 2 mm ret ropulsion. Please correlate with focal tenderness and trauma history. Reading Location: [id number]
== END | disposition home or self-care (01) ==
LOC: MRI 14:00
PROVIDERS: PCP Internal Medicine; Referring Provider Orthopaedic Surgery Orthopaedic Surgery of the Spine; Visit Provider Orthopaedic Surgery Orthopaedic Surgery of the Spine
DX: S32.030A Wedge compression fracture of third lumbar vertebra, initial encounter for closed fracture (principal); X58.XXXA Exposure to other specified factors, initial encounter
CPT/HCPCS: 72146